=== PATIENT | female | born 1945 | race Caucasian/White ===

== ENCOUNTER → 2017-10-19 13:46 | Outpatient (CLI) | payer MEDICARE, OTHER, SELFPAY ==
[2017-10-19 13:55] LABS: Bacteria 0 SEEN /hpf (None Seen); Mucous, Urine 0 SEEN /hpf (<or=2+); Red Blood Cells-Urine 0 SEEN /hpf (0-5); Squamous Epithelial Cells - UA 0 SEEN /hpf (5-10); White Blood Cells 0 SEEN /hpf (0-5)
[2017-10-19 14:02] LABS: Color, Urine Yellow (Yellow); Glucose, Dipstick Normal (Normal); Ketone-Dipstick Negative (Negative); Leukocyte Esterase-Dipstick Negative /ul (Negative); Nitrite-Dipstick Negative (Negative); Occult Blood-Urine Negative /ul (Negative); Protein-Dipstick Negative (Negative); Urine Bilirubin Dipstick Negative (Negative); Urine Clarity Clear (Clear); Urine Urobilinogen Normal (Normal)
== END ==
PROVIDERS: Family Provider Nurse Practitioner; PCP Nurse Practitioner; Visit Provider Physician Assistant Surgical
DX: R30.0 Dysuria (principal)
CPT/HCPCS: 81001; 87086; 87088

== ENCOUNTER → 2017-10-28 09:47 | Outpatient (CLI) | payer MEDICARE, OTHER, SELFPAY ==
[2017-10-28 10:56] LABS: Absolute Lymphocyte Count 0.95 X10^3/ul (0.83-4.51); Absolute Neutrophil Count 5.2 X10^3/uL (2.0-7.7); Basophil# 0.03 X10^3/uL; Basophil% 0.5 % (0-1); Eosinophil# 0.07 X10^3/uL; Eosinophils% 1.1 % (0-5); Hematocrit 27.9 % (37-47); Hemoglobin 8.2 g/dl (12.0-15.0); Lymphocyte # 0.95 X10^3/ul (4.0); Lymphocyte % 14.6 % (19-41); Mean Corp Hgb Conc 29.4 g/gl (32-36); Mean Corpuscular Hgb 28.9 pg (27.0-32.0); Mean Corpuscular Volume 98.2 fL (81-99); Mean Platelet Vol. 11.5 fl (6.2-12.0); Monocyte# 0.25 X10^3/uL; Monocyte% 3.8 % (0-10); Neutrophil # 5.19 X10^3/uL (2.7-7.7); Neutrophil % 79.8 % (47-70); Platelet Count 250 K/mm3 (150-450); RBC Distribution Width CV 19.1 % (11.6-14.6); RBC Distribution Width SD 66.8 fl (35.1-43.9); Red Blood Count 2.84 M/mm3 (4.2-5.4); White Blood Count 6.5 K/mm3 (4.4-11.0)
[2017-10-28 10:58] LABS: Differential Indicated SCAN CRITERIA MET; POSITIVE COUNT NO; POSITIVE DIFFERENTIAL NO; POSITIVE MORPHOLOGY YES
[2017-10-28 11:03] LABS: AST(SGOT) 19 U/L (15-37); Alanine Aminotransfer ALT/SGPT 17 U/L (13-56); Albumin, Serum 3.6 g/dL (3.2-5.0); Alkaline Phosphatase 76 U/L (45-117); Anion Gap 8 (5-15); BUN 33 mg/dL (7-18); BUN/Creat Ratio 23.1 RATIO (10-20); Calcium,Total 8.8 mg/dL (8.5-10.1); Chloride 107 mmol/L (98-107); Cholesterol 101 mg/dL (200); Creatinine, Serum 1.43 mg/dL (0.55-1.02); EST Glomerular Filtration Rate 38 mL/min (>60); Est Glom Filt Rate - Afr Amer 46 mL/min (>60); Ferritin 32 ng/mL (8-252); Globulin 3.5 g/dL (2.2-4.2); Glucose 111 mg/dL (74-106); High Density Lipoprotein 29 mg/dL; Iron 95 ug/dL (50-170); Iron Binding Capacity,Total 449 ug/dL (250-450); PERCENT IRON SATURATION 21.2 % (15.0-55.0); Potassium 4.3 mmol/L (3.5-5.1); Protein, Total 7.1 g/dL (6.4-8.2); Sodium Level 139 mmol/L (136-145); Triglycerides 120 mg/dL; Very Low Density Lipoprotein 24 mg/dL (5-40)
[2017-10-28 11:19] LABS: Anisocytosis 1+; Hypochromasia 2+; Platelet Estimate ADEQUATE (ADEQ); Polychromasia RARE
== END ==
PROVIDERS: Internal Medicine Hematology & Oncology; Family Provider Nurse Practitioner; PCP Nurse Practitioner; Visit Provider Internal Medicine Nephrology
DX: N17.9 Acute kidney failure, unspecified (principal); D50.9 Iron deficiency anemia, unspecified; E11.9 Type 2 diabetes mellitus without complications
CPT/HCPCS: 36415; 80053; 80061; 82728; 83540; 83550; 85025

== ENCOUNTER 2017-11-18 14:05 | Emergency (ER) | payer MEDICARE, OTHER, SELFPAY ==
[2017-11-18 14:05] VITALS: BP 151/88; PULSE 98; RESP 25; TEMP 36.4; O2SAT 96; BMI 58.9
[2017-11-18 14:24] VITALS: O2SAT 94
--- NOTE | 2017-11-18 14:25 | EKG12_ITS ---
Test Reason : SOB Blood Pressure : / mmHG Vent. Rate : 085 BPM Atrial Rate : 058 BPM P-R Int : 000 ms QRS Dur : 088 ms QT Int : 372 ms P-R-T Axes : 000 050 185 degrees QTc Int : 442 ms Atrial fibrillation Nonspecific ST and T wave abnormality Abnormal ECG Confirmed by HARPAL BALDWIN, AMY ([id number]), legal editor JONATHON ROLLE ([id number]) on 11/22/2017 12:57:07 PM Referred By: JOO Confirmed By:AMY ROWAN MD
--- NOTE | 2017-11-18 14:45 | RAD_ITS ---
STUDY: X-RAY CHEST REASON FOR EXAM: Female, 72 years old. SOB, recent start of pulmonary hypertension meds, pt. states she doesn't feel like they are working properly TECHNIQUE: Frontal and lateral views of the chest. COMPARISON: None. FINDINGS: Ill-defined groundglass opacities are seen in the perihilar regions and lung bases suggesting pulmonary edema. There is no demonstrated pleural abnormality. There is moderate cardiac enlargement. Normal mediastinum and veronika. There is prominence of the pulmonary hilar arteries and peripheral pulmonary arteries, consistent with congestive heart failure (CHF). Normal visualized aortic arch and descending thoracic aorta. Normal visualized thoracic spine. Normal visualized ribs, clavicles, and shoulders. There is no demonstrated abnormality of the visualized soft tissue structures of the upper abdomen. RAD/Chest PA and Lateral IMPRESSION: Congestive heart failure. Electronically Signed: Aaron Kenyon MD at 15:32 EDT Tel , Service support ,
[2017-11-18 15:10] LABS: International Normalized Ratio 2.8; Prothrombin Time (Protime)PT. 29.7 SECONDS (11.7-14.9)
[2017-11-18 15:17] LABS: Anion Gap 7 (5-15); BUN 30 mg/dL (7-18); BUN/Creat Ratio 20.3 RATIO (10-20); Calcium,Total 8.8 mg/dL (8.5-10.1); Chloride 110 mmol/L (98-107); Creatinine, Serum 1.48 mg/dL (0.55-1.02); EST Glomerular Filtration Rate 37 mL/min (>60); Est Glom Filt Rate - Afr Amer 44 mL/min (>60); Estimated Creatinine Clearance 32.43 ml/min; Glucose 159 mg/dL (74-106); Potassium 4.1 mmol/L (3.5-5.1); Sodium Level 141 mmol/L (136-145)
[2017-11-18 15:50] LABS: Absolute Lymphocyte Count 0.72 X10^3/ul (0.83-4.51); Absolute Neutrophil Count 4.8 X10^3/uL (2.0-7.7); Basophil# 0.03 X10^3/uL; Basophil% 0.5 % (0-1); Eosinophil# 0.07 X10^3/uL; Eosinophils% 1.2 % (0-5); Hematocrit 29.3 % (37-47); Hemoglobin 8.3 g/dl (12.0-15.0); Lymphocyte # 0.72 X10^3/ul (4.0); Mean Corp Hgb Conc 28.3 g/gl (32-36); Mean Corpuscular Hgb 30.1 pg (27.0-32.0); Mean Corpuscular Volume 106.2 fL (81-99); Mean Platelet Vol. 10.8 fl (6.2-12.0); Monocyte# 0.33 X10^3/uL; Monocyte% 5.5 % (0-10); Neutrophil # 4.82 X10^3/uL (2.7-7.7); Neutrophil % 80.6 % (47-70); Platelet Count 249 K/mm3 (150-450); RBC Distribution Width CV 19.1 % (11.6-14.6); RBC Distribution Width SD 71.6 fl (35.1-43.9); Red Blood Count 2.76 M/mm3 (4.2-5.4)
[2017-11-18 15:52] LABS: Differential Indicated SCAN CRITERIA MET; POSITIVE COUNT NO; POSITIVE DIFFERENTIAL NO; POSITIVE MORPHOLOGY YES
[2017-11-18 16:02] LABS: Differential Comment SCANNED
[2017-11-18 16:29] VITALS: BP 163/69; PULSE 75; RESP 27; O2SAT 99
[2017-11-18 16:54] LABS: BNP,B-Type NATRIURETIC PEPTIDE 226.6 pg/mL (0-100)
--- NOTE | 2017-11-18 17:35 | ED.VISSUMM ---
- ER Visit Summary Date of Service: 11/18/17 Chief Complaint: Shortness of breath History of Present Illness: The patient is a 72 F with a history of shortness of breath secondary to pulmonary hypertension. Patient also has chronic anemia secondary to mild chronic GI bleed. She recently received iron infusions in hopes of increasing her hemoglobin. Patient was started on Revatio 3 weeks ago to help treat the pulmonary hypertension. She has noticed increasing shortness of breath since starting the Revatio. She called Dr. Nelson's office today and was told to continue taking the medication as it may take 6 weeks to see benefit. She called her drainman today to see if she needed to have her blood counts redrawn and she was encouraged to follow-up in the emergency room secondary to her increasing shortness of breath. Patient does not have orthopnea. She reports shortness of breath with any movement or exertion. Physical Examination: Vital signs are unremarkable. Patient sitting upright in bed, alert and conversant. Head neck examination is unremarkable. Heart is irregular with a 3/6 murmur. Lung sounds are grossly clear on auscultation. Abdomen is soft, obese, nontender. Lower extremity examination does reveal 3+ pitting edema at the ankles. Test Results: Two-view chest x-ray is consistent with CHF. EKG is A. fib at 85 with no sign of acute ischemia. CBC was normal white count with hemoglobin of 8.3. This is consistent with her most recent hemoglobin level. Chemistry studies reveal BUN of 30 and a creatinine 1.48. This again is consistent with her baseline. INR is therapeutic at 2.8. Troponin is less than 0.02. BNP is 226. Emergency Department Course and Treatment: On repeat examination patient is resting comfortably. She does not tell me that her Lasix was recently decreased in dose. She does not have a known history of problems with CHF. I spoke with her insurance follow up rep, Dr. Raymundo. Patient will get a dose of IV Lasix now and will increase her Lasix at home back to her prior dosing. Treatment Plan: [] Disposition: Discharge Impression: Dyspnea This note was generated with [employer] dictation software. It may contain incorrect words, spelling, and punctuation that were not noted in review of the chart prior to signing ED Disposition - Plan for ED Patient: Chief Complaint: Shortness of Breath Referrals: Jyothi Weber [Primary Care Provider] -
[2017-11-18] MEDS: Furosemide 40 MG/4 ML Vial IV (17:40)
--- NOTE | 2017-11-18 17:40 | ED.DCSUM_ITS ---
- ER Visit Summary Date of Service: 11/18/17 Chief Complaint: Shortness of breath History of Present Illness: The patient is a 72 F with a history of shortness of breath secondary to pulmonary hypertension. Patient also has chronic anemia secondary to mild chronic GI bleed. She recently received iron infusions in hopes of increasing her hemoglobin. Patient was started on Revatio 3 weeks ago to help treat the pulmonary hypertension. She has noticed increasing shortness of breath since starting the Revatio. She called Dr. Nelson's office today and was told to continue taking the medication as it may take 6 weeks to see benefit. She called her cook 3 pastry today to see if she needed to have her blood counts redrawn and she was encouraged to follow-up in the emergency room secondary to her increasing shortness of breath. Patient does not have orthopnea. She reports shortness of breath with any movement or exertion. Physical Examination: Vital signs are unremarkable. Patient sitting upright in bed, alert and conversant. Head neck examination is unremarkable. Heart is irregular with a 3/6 murmur. Lung sounds are grossly clear on auscultation. Abdomen is soft, obese, nontender. Lower extremity examination does reveal 3+ pitting edema at the ankles. Test Results: Two-view chest x-ray is consistent with CHF. EKG is A. fib at 85 with no sign of acute ischemia. CBC was normal white count with hemoglobin of 8.3. This is consistent with her most recent hemoglobin level. Chemistry studies reveal BUN of 30 and a creatinine 1.48. This again is consistent with her baseline. INR is therapeutic at 2.8. Troponin is less than 0.02. BNP is 226. Emergency Department Course and Treatment: On repeat examination patient is resting comfortably. She does not tell me that her Lasix was recently decreased in dose. She does not have a known history of problems with CHF. I spoke with her laborer yard, Dr. Raymundo. Patient will get a dose of IV Lasix now and will increase her Lasix at home back to her prior dosing. Treatment Plan: [] Disposition: Discharge Impression: Dyspnea This note was generated with [employer] dictation software. It may contain incorrect words, spelling, and punctuation that were not noted in review of the chart prior to signing ED Disposition - Plan for ED Patient: Chief Complaint: Shortness of Breath Referrals: Jyothi Weber [Primary Care Provider] -
--- NOTE | 2017-11-18 17:40 | ED.DEP ---
ED Disposition - Plan for ED Patient: Disposition: Home or Assisted Living Chief Complaint: Shortness of Breath Instructions: ED Dyspnea Shortness of Breath, ED CHF General Referrals: Jyothi Weber [Primary Care Provider] - Niraj Raymundo MD [STAFF PHYSICIAN] - Carlos Nelson MD [STAFF PHYSICIAN] -
[2017-11-18 17:53] VITALS: BP 184/84; PULSE 82; RESP 18; O2SAT 97
== END 2017-11-18 17:54 | disposition home or self-care (01) ==
PROVIDERS: Emergency Provider Emergency Medicine; Family Provider Nurse Practitioner; PCP Nurse Practitioner
DX: I27.20 Pulmonary hypertension, unspecified (principal); D50.0 Iron deficiency anemia secondary to blood loss (chronic); E66.9 Obesity, unspecified; Z68.43 Body mass index [BMI] 50.0-59.9, adult; I48.91 Unspecified atrial fibrillation; I35.0 Nonrheumatic aortic (valve) stenosis; I25.2 Old myocardial infarction; I12.9 Hypertensive chronic kidney disease with stage 1 through stage 4 chronic kidney disease, or unspecified chronic kidney disease; E11.22 Type 2 diabetes mellitus with diabetic chronic kidney disease; N18.9 Chronic kidney disease, unspecified; Z79.84 Long term (current) use of oral hypoglycemic drugs; E78.00 Pure hypercholesterolemia, unspecified; Z79.01 Long term (current) use of anticoagulants; Z79.899 Other long term (current) drug therapy
CPT/HCPCS: 71046; 80048; 83880; 84484; 85025; 85610; 93005; 96374; 99284; A4216; J1940

== ENCOUNTER 2017-11-29 18:20 | Inpatient (IN) | payer MEDICARE, OTHER, SELFPAY ==
[2017-11-29 18:21] VITALS: BP 138/99; PULSE 91; RESP 18; TEMP 36.7; O2SAT 98; BMI 57.2
--- NOTE | 2017-11-29 20:33 | EKG12_ITS ---
Test Reason : GI BLEED Blood Pressure : / mmHG Vent. Rate : 095 BPM Atrial Rate : 070 BPM P-R Int : 000 ms QRS Dur : 088 ms QT Int : 352 ms P-R-T Axes : 000 053 216 degrees QTc Int : [address] & T wave abnormality, consider lateral ischemia Abnormal ECG Confirmed by HARPAL BALDWIN, AMY ([id number]), features editor JONATHON ROLLE ([id number]) on 12/03/2017 1:59:50 PM Referred By: Confirmed By:AMY ROWAN MD
--- NOTE | 2017-11-29 20:35 | RAD_ITS ---
STUDY: X-RAY CHEST REASON FOR EXAM: Female, 72 years old. Coughing weakness and low hemoglobin. TECHNIQUE: Single AP portable view of the chest. Apical lordotic. COMPARISON: Prior chest radiograph of November 18, 2017. Prior PA and lateral chest of August 06, 2017 FINDINGS: The right lung is expanded and without consolidation or atelectasis from baseline radiograph of August 06, 2017. There appears to be a new airspace opacity at the left lung base at the costophrenic angle. Otherwise stable findings of the left lung. Continued cardiomegaly. Normal mediastinum and veronika. Normal visualized pulmonary arteries. There is atherosclerotic calcification of the aortic arch with tortuosity. Normal visualized thoracic spine. Normal visualized ribs, clavicles, and shoulders. There is no demonstrated abnormality of the visualized soft tissue structures of the upper abdomen. RAD/Chest 1 View (Portable) IMPRESSION: Right lung remains expanded and baseline in appearance without new consolidation or focal atelectasis. New opacity at the left lung base/costophrenic angle. Possible new area of consolidation or atelectasis. This may be in part secondary to a exaggerated epicardiac fat pad as this film is apical lordotic compared to prior standard PA radiographs. Continued mild cardiomegaly. Negative for pulmonary venous congestion. Electronically Signed: Norah Arreaga MD at 21:39 EDT , Service support ,
[2017-11-29 21:01] VITALS: PULSE 105; PULSE 119; RESP 18; RESP 23; O2SAT 92; O2SAT 94
[2017-11-29 21:04] VITALS: PULSE 107
[2017-11-29 21:26] LABS: Absolute Lymphocyte Count 1.22 X10^3/ul (0.83-4.51); Absolute Neutrophil Count 6.1 X10^3/uL (2.0-7.7); Basophil# 0.03 X10^3/uL; Basophil% 0.4 % (0-1); Eosinophil# 0.05 X10^3/uL; Eosinophils% 0.6 % (0-5); Hematocrit 25.1 % (37-47); Hemoglobin 7.1 g/dl (12.0-15.0); Lymphocyte # 1.22 X10^3/ul (4.0); Lymphocyte % 15.5 % (19-41); Mean Corp Hgb Conc 28.3 g/gl (32-36); Mean Corpuscular Hgb 29.8 pg (27.0-32.0); Mean Corpuscular Volume 105.5 fL (81-99); Mean Platelet Vol. 10.3 fl (6.2-12.0); Monocyte# 0.48 X10^3/uL; Monocyte% 6.1 % (0-10); Neutrophil # 6.07 X10^3/uL (2.7-7.7); Neutrophil % 77.3 % (47-70); Platelet Count 329 K/mm3 (150-450); RBC Distribution Width CV 18.7 % (11.6-14.6); RBC Distribution Width SD 66.4 fl (35.1-43.9); Red Blood Count 2.38 M/mm3 (4.2-5.4); White Blood Count 7.9 K/mm3 (4.4-11.0)
[2017-11-29 21:28] LABS: POSITIVE COUNT NO; POSITIVE DIFFERENTIAL NO; POSITIVE MORPHOLOGY YES
[2017-11-29 21:29] LABS: Differential Indicated SCAN CRITERIA MET
[2017-11-29 21:40] LABS: Anion Gap 9 (5-15); BUN 37 mg/dL (7-18); BUN/Creat Ratio 20.6 RATIO (10-20); Calcium,Total 8.8 mg/dL (8.5-10.1); Chloride 107 mmol/L (98-107); EST Glomerular Filtration Rate 29 mL/min (>60); Est Glom Filt Rate - Afr Amer 35 mL/min (>60); Estimated Creatinine Clearance 26.66 ml/min; Glucose 127 mg/dL (74-106); Potassium 4.5 mmol/L (3.5-5.1); Sodium Level 139 mmol/L (136-145)
[2017-11-29 22:03] LABS: Anisocytosis 2+; Differential Comment SCANNED; Macrocytosis 1+; Platelet Estimate ADEQUATE (ADEQ); Platelet Morphology GIANT; Polychromasia 1+
[2017-11-29 22:13] LABS: International Normalized Ratio 2.4; Prothrombin Time (Protime)PT. 26.4 SECONDS (11.7-14.9)
[2017-11-29 22:26] LABS: BNP,B-Type NATRIURETIC PEPTIDE 217.5 pg/mL (0-100)
[2017-11-29 23:24] VITALS: BP 91/78; PULSE 95; RESP 23; O2SAT 96
--- NOTE | 2017-11-29 23:32 | PCM.HP.STD ---
Problem List (1) CKD (chronic kidney disease), stage III Status: Chronic (2) Acute kidney injury Status: Acute (3) Chronic atrial fibrillation Status: Chronic (4) GI bleed Status: Acute Qualifiers: GI bleed type/associated pathology: unspecified gastrointestinal hemorrhage type Qualified Code(s): K92.2 - Gastrointestinal hemorrhage, unspecified (5) HLD (hyperlipidemia) Status: Chronic Qualifiers: Hyperlipidemia type: unspecified Qualified Code(s): E78.5 - Hyperlipidemia, unspecified (6) HTN (hypertension) Status: Chronic Qualifiers: Hypertension type: essential hypertension Qualified Code(s): I10 - Essential (primary) hypertension (7) Nonrheumatic aortic (valve) stenosis Status: Chronic (8) CAD (coronary artery disease) Status: Chronic Qualifiers: Coronary Disease-Associated Artery/Lesion type: unspecified vessel or lesion type [place] vs. transplanted heart: unspecified whether [place] or transplanted heart Associated angina: angina presence unspecified Qualified Code(s): I25.10 - Atherosclerotic heart disease of [place] coro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 pectoris (9) Iron deficiency anemia Status: Chronic Qualifiers: Iron deficiency anemia type: unspecified iron deficiency Qualified Code(s): D50.9 - Iron deficiency anemia, unspecified (10) Morbid obesity Status: Chronic History of Present Illness Date of Admission: 11/29/17 Chief Complaint: Weakness, Lightheadedness The patient is a 72 y/o F w/ PMHx: Fe deficiency anemia following w/ Dr. Kahn w/ intermittent Venofer/PRBC administrations, CKD stage III following w/ Dr. Mccurdy, Diabetes mellitus type II, HTN, HLD, AARTI on CPAP, Morbid Obesity, Chronic BL LE Lymphedema and Chronic venous skin changes, Chronic atrial fibrillation on coumadin therapy, History NSTEMI following w/ Dr. Raymundo, Hx Pulmonary HTN, Hx GI bleed prior who presents to the [facility] ED on 11/29/17 with history of ongoing lightheadedness, weakness x 24 hours with reported low Hgb with reported c-scope ~ 1 year prior 12/[address] Hobbs. She notes dark stools chronically secondary to Fe supplementation. In the ED work-up included T 98, HR 119-->95, 138/99-->91/78, RR 18, 98% RA, CBC w/ WBC 7.9, Hgb 7.1 (most recent 11/18/17 Hgb 8.3-->11/26/17 Hgb 7), Plts 329 without shift, INR 2.4, BMP w/ BUN/Cr 37/1.80, glucose 127, trop < 0.02, BNP 217.5. In the ED PRBC x 1 unit ordered, pending. Past Medical History Past Medical History (Chronic Problems): Chronic Problems (Last Reviewed 11/04/17 @ 12:55 by Shirley Mcpherson) CKD (chronic kidney disease), stage III (Chronic) Atherosclerotic heart disease of [place] coro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 pectoris (Chronic) LHC: 07/30/2006; 04/10/17 Chronic atrial fibrillation (Chronic) Hyperkalemia (Chronic) HLD (hyperlipidemia) (Chronic) HTN (hypertension) (Chronic) Non-ST elevation (NSTEMI) myocardial infarction (Chronic) Nonrheumatic aortic (valve) stenosis (Chronic) Nonrheumatic mitral (valve) insufficiency (Chronic) Nonrheumatic tricuspid (valve) insufficiency (Chronic) Other secondary pulmonary hypertension (Chronic) SOB (shortness of breath) (Chronic) NSTEMI (non-ST elevated myocardial infarction) (Chronic) Chronic atrial fibrillation (Chronic) Hypertension (Chronic) Hyperlipidemia (Chronic) Type 2 diabetes mellitus (Chronic) CAD (coronary artery disease) (Chronic) Anemia (Chronic) CRF (chronic renal failure) (Chronic) Iron deficiency anemia (Chronic) Diverticular disease (Chronic) Morbid obesity (Chronic) Allergies No Known Allergies Allergy (Verified 11/18/17 14:05) Home Medications: Ambulatory Orders Medication Instructions Recorded Amoxicillin 2,000 mg PO X1 PRN 11/18/17 Ascorbic Acid [Vitamin C] 1,000 mg PO BID 11/18/17 Budesonide/Formoterol Fumarate 2 puff IH BID 11/18/17 [Symbicort 160-4.5 Mcg Inhaler] Calcium Citrate 500 mg PO TID 11/18/17 Cholecalciferol (Vitamin D3) 4,000 unit PO DAILY 11/18/17 [Vitamin D3] Febuxostat [Uloric] 80 mg PO DAILY 11/18/17 Furosemide [Lasix] 20 mg PO DAILY 11/18/17 Linagliptin [Tradjenta] 5 mg PO DAILY PRN 11/18/17 Lisinopril [Zestril] 10 mg PO DAILY 11/18/17 Magnesium Oxide [Magnesium] 250 mg PO DAILY 11/18/17 Metoprolol Tartrate [Lopressor 100 mg PO BID 11/18/17 (Beta Matthieu)] Multivitamin [Daily Multiple 1 each PO DAILY 11/18/17 Vitamin] Pravastatin Sodium 80 mg PO QHS 11/18/17 Ropinirole HCl [Requip] 0.25 mg PO DAILY 11/18/17 Sildenafil Citrate [Revatio] 20 mg PO TID 11/18/17 Ubidecarenone [Coenzyme Q-10] 100 mg PO DAILY 11/18/17 Warfarin [Coumadin ([facility])] 5 mg PO DAILY 11/18/17 hydrALAZINE [Apresoline] 25 mg PO TID 11/18/17 Ferrous Sulfate 325 mg PO BID 11/29/17 Surgical History: appendectomy, hysterectomy, - - R foot surgery. 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 Paternal History Items: - - Father with a history of coronary artery disease, diabetes, heart disease, hypertension. Review of Systems Constitutional: Reports: Malaise, Weakness, Fatigue. Denies: Chills, Fever, Weight Change HEENT: Denies: Head Aches, Sinus Congestion, Sinus Drainage Cardiovascular: Reports: Edema, Light Headedness. Denies: Chest Pain, Palpitations Respiratory: Reports: Shortness of breath upon exertion. Denies: Cough, Shortness of breath at rest, Sputum production Gastrointestinal: Denies: Abdominal Pain, Nausea, Vomiting Genitourinary: Denies: Dysuria Musculoskeletal: Denies: Joint Pain, Joint Tenderness Skin: Reports: Skin Changes. Denies: Rash, Wounds Neurological: Denies: Numbness, Tingling, Focal weakness Psychiatric: Denies: Anxiety, Depression, Homicidal Ideations, Suicidal Ideations Hematologic/ Lymphatic: Reports: Anemia. Denies: Easy Bruising, Easy Bleeding VTE Information - Inpt Only VTE Present on Admission: No VTE Mechan Device Prophylaxis: SCD's VTE Pharm Prophylaxis ordered?: No Reason prophylaxis not ordered:: Medical Contraindication Patient Problems: Active and Suspected Problems (Last Reviewed 11/04/17 @ 12:55 by Shirley Mcpherson) Acute kidney injury (Acute) Subjective: Seated upright in the ED bed, NAD. Objective: Physical Examination: General: awake, alert, oriented x 3 and cooperative, seated upright in the ED bed in no apparent distress. Skin: normal color, turgor, no icterus, cyanosis except BL LE chronic venous stasis dermatitis skin changes. HEENT: AT/NC, EOMI, PERRLA, mildly dry MM, no carotid bruits or JVD noted; however, thickened neck makes examination difficult. Lungs: Diminished BS, > bases, mild effort, morbidly obese habitus, no wheezing, rhonchi or rales noted. Heart: Irregular, mildly tachycardic; no gallop, rub audible, SM. Abdomen: soft, morbidly obese, NTTP, ND, normal BS, no HSM; however, habitus makes examination difficult. Extremities: no cyanosis, clubbing, BL LE chronic venous stasis, 2+ ankle to distal [place] edema, chronic lymphedema. Neurological: patient awake, alert, oriented x 3; cognitive function intact; pupils equally reactive to light and accomodation; cranial nerves II-XII grossly normal, moving all 4 extremities, no focal deficits, strength severely globally decreased secondary to acute presentation and co-morbidities including habitus. Psychiatric: affect appears normal, no acute evidence of depressive or anxiety feelings. - Physical Exam Vital Signs Temp Pulse Resp BP Pulse Ox 98.0 F 95 23 H 91/78 96 11/29/17 18:21 11/29/17 23:24 11/29/17 23:24 11/29/17 23:24 11/29/17 23:24 Oxygen Delivery Method Room Air Weight: 365 lb Body Mass Index (BMI) 57.2 Microbiology Past 72 Hours 11/29/17 20:34 Stool Occult Blood (LASHAUN) - Final Stool Occult Blood Positive Laboratory Tests Past 24 Hrs 11/29/17 11/29/17 11/29/17 20:55 20:55 20:55 WBC 7.9 RBC 2.38 L Hgb 7.1 L Hct 25.1 L MCV 105.5 H MCH 29.8 MCHC 28.3 L RDW 18.7 H RDW Differential 66.4 H Plt Count 329 MPV 10.3 Immature Gran % (Auto) 0.100 Neut % (Auto) 77.3 H Lymph % (Auto) 15.5 L [place] % (Auto) 6.1 Eos % (Auto) 0.6 Baso % (Auto) 0.4 Absolute Neuts (auto) 6.1 Absolute Lymphs (auto) 1.22 Total Counted Not Reportable Differential Comment SCANNED Platelet Estimate ADEQUATE Plt Morphology Comment GIANT Polychromasia 1+ Anisocytosis 2+ Macrocytosis 1+ PT 26.4 H INR 2.4 Sodium 139 Potassium 4.5 Chloride 107 Carbon Dioxide 23.0 Anion Gap 9 BUN 37 H Creatinine 1.80 H Estim Creat Clear Calc 26.66 Est GFR (MDRD) Af Amer 35 L Est GFR (MDRD) Non-Af 29 L BUN/Creatinine Ratio 20.6 H Glucose 127 H Calcium 8.8 Troponin I < 0.02 B-Natriuretic Peptide Blood Type Antibody Screen 11/29/17 11/29/17 20:55 20:55 WBC RBC Hgb Hct MCV MCH MCHC RDW RDW Differential Plt Count MPV Immature Gran % (Auto) Neut % (Auto) Lymph % (Auto) [place] % (Auto) Eos % (Auto) Baso % (Auto) Absolute Neuts (auto) Absolute Lymphs (auto) Total Counted Differential Comment Platelet Estimate Plt Morphology Comment Polychromasia Anisocytosis Macrocytosis PT INR Sodium Potassium Chloride Carbon Dioxide Anion Gap BUN Creatinine Estim Creat Clear Calc Est GFR (MDRD) Af Amer Est GFR (MDRD) Non-Af BUN/Creatinine Ratio Glucose Calcium Troponin I B-Natriuretic Peptide 217.5 H Blood Type A POSITIVE Antibody Screen NEGATIVE Assessment/Plan Active and Suspected Problems (Last Reviewed 11/04/17 @ 12:55 by Shirley Mcpherson) Acute kidney injury (Acute) The patient is a 72 y/o F w/ PMHx: Fe deficiency anemia following w/ Dr. Khan w/ intermittent Venofer/PRBC administrations, CKD stage III following w/ Dr. Mccurdy, Diabetes mellitus type II, HTN, HLD, AARTI on CPAP, Morbid Obesity, Chronic BL LE Lymphedema and Chronic venous skin changes, Chronic atrial fibrillation on coumadin therapy, History NSTEMI following w/ Dr. Raymundo, Hx Pulmonary HTN, Hx GI bleed prior who presents to the [facility] ED on 11/29/17 with history of ongoing lightheadedness, weakness x 24 hours with reported low Hgb. (1) Acute GI Bleed w/ resultant Acute Blood Loss Anemia on Chronic Fe Deficiency Anemia: Admission Hgb 7.1, stool guiac positive, reported recent labs w/ 11/18/17 Hgb 8.3, 11/26/17 Hgb 7.0. Will admit to PCU, maintain on IVFs. Admission INR 2.4, given recent Hgb similar to repeat will administer vitamin K oral regimen only, obtain serial H+H q 6 hours, if decreased further will administer FFP as needed, PRBC 1 u ordered per ED, pending. Will maintain on IV PPI. Dr. [place] consulted per ED, pending. Continue Fe supplementation. Dr. Khan also for Fe management/evaluation. (2) Acute kidney injury: Secondary to acute presentation as noted #1, nephrotoxic regimen. Admission BUN/Cr 37/1.80, prior baseline creatinine noted to be 1.2-1.3. Following w/ Dr. Mccurdy outpatient. Will hydrate, hold nephrotoxic medications and repeat chemistry in AM. If no improvement would plan FeNa and renal US assessment. (3) CAD: Noted most recent cardiac catheterization 2005 w/ normal left main coronary artery, and left anterior descending artery with isolated plaque of 30-40%, circumflex artery with isolated plaque disease, obtuse marginal with 30-40% disease in the right coronary artery with isolated plaque disease. Holding coumadin, continue statin, holding ACEI, BB secondary to hypotension. (4) Chronic Atrial Fibrillation: EKG tachycardic, atrial fibrillation, improved w/ IVFs, holding metoprolol given hypotension, add back once appropriate, holding coumadin, repeat INR. (5) Hypertension: BP low in the ED, will hold regimen pending improvement, PRN hydralazine. (6) Hyperlipidemia: Continue home statin regimen. (7) Morbid Obesity: Weight loss and lifestyle changes encouraged, nutrition consulted. (8) Diabetes mellitus type II: Hold oral home regimen, NPO status, accu checks w/ ISS. (9) Valvular Heart Disease: History of aortic stenosis, most recent ECHO w/ mild to moderate aortic stenosis w/ mean gradient 30 mmHgb. (10) Pulmonary HTN: Continue home sildenafil regimen. (11) AARTI: Maintain on home CPAP. (12) Abnormal CXR: Suspect poor film especially given habitus, no recent marked cough, fever, no WBC elevation or marked shift, but to be cautious as noted hydrating gently overnight, repeat PA and Lateral in AM. (13) DVT Prophylaxis: SCDs, holding coumadin given presentation. Code Visit Inpatient E&M: 24482 Init Hosp L3
[2017-11-29 23:44] VITALS: BP 133/80; PULSE 93; RESP 25; O2SAT 94
--- NOTE | 2017-11-29 23:50 | HP.PCM_ITS ---
Problem List (1) CKD (chronic kidney disease), stage III Status: Chronic (2) Acute kidney injury Status: Acute (3) Chronic atrial fibrillation Status: Chronic (4) GI bleed Status: Acute Qualifiers: GI bleed type/associated pathology: unspecified gastrointestinal hemorrhage type Qualified Code(s): K92.2 - Gastrointestinal hemorrhage, unspecified (5) HLD (hyperlipidemia) Status: Chronic Qualifiers: Hyperlipidemia type: unspecified Qualified Code(s): E78.5 - Hyperlipidemia , unspecified (6) HTN (hypertension) Status: Chronic Qualifiers: Hypertension type: essential hypertension Qualified Code(s): I10 - Essential (primary) hypertension (7) Nonrheumatic aortic (valve) stenosis Status: Chronic (8) CAD (coronary artery disease) Status: Chronic Qualifiers: Coronary Disease-Associated Artery/Lesion type: unspecified vessel or lesion type [place] vs. transplanted heart: unspecified whether koi or transplanted heart Associated angina: angina presence unspecified Qualified Code(s): I25.10 - Atherosclerotic heart disease of koi coro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 pectoris (9) Iron deficiency anemia Status: Chronic Qualifiers: Iron deficiency anemia type: unspecified iron deficiency Qualified Code(s) : D50.9 - Iron deficiency anemia, unspecified (10) Morbid obesity Status: Chronic History of Present Illness Date of Admission: 11/29/17 Chief Complaint: Weakness, Lightheadedness The patient is a 72 y/o F w/ PMHx: Fe deficiency anemia following w/ Dr. Khan w/ intermittent Venofer/PRBC administrations, CKD stage III following w / Dr. Mccurdy, Diabetes mellitus type II, HTN, HLD, AARTI on CPAP, Morbid Obesity, Chronic BL LE Lymphedema and Chronic venous skin changes, Chronic atrial fibrillation on coumadin therapy, History NSTEMI following w/ Dr. Raymundo, Hx Pulmonary HTN, Hx GI bleed prior who presents to the [facility] ED on 11/29/17 with history of ongoing lightheadedness, weakness x 24 hours with reported low Hgb with reported c-scope ~ 1 year prior 12/[address] Hobbs. She notes dark stools chronically secondary to Fe supplementation. In the ED work-up included T 98, HR 119-->95, 138/99-->91/78, RR 18, 98% RA, CBC w/ WBC 7.9, Hgb 7.1 (most recent 11/18/17 Hgb 8.3-->11/26/17 Hgb 7), Plts 329 without shift, INR 2.4, BMP w/ BUN/Cr 37/1.80, glucose 127, trop < 0.02, BNP 217.5. In the ED PRBC x 1 unit ordered, pending. Past Medical History Past Medical History (Chronic Problems): Chronic Problems (Last Reviewed 11/04/17 @ 12:55 by Shirley Mcpherson) CKD (chronic kidney disease), stage III (Chronic) Atherosclerotic heart disease of koi coro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 pectoris (Chronic) LHC: 07/30/2006; 04/10/17 Chronic atrial fibrillation (Chronic) Hyperkalemia (Chronic) HLD (hyperlipidemia) (Chronic) HTN (hypertension) (Chronic) Non-ST elevation (NSTEMI) myocardial infarction (Chronic) Nonrheumatic aortic (valve) stenosis (Chronic) Nonrheumatic mitral (valve) insufficiency (Chronic) Nonrheumatic tricuspid (valve) insufficiency (Chronic) Other secondary pulmonary hypertension (Chronic) SOB (shortness of breath) (Chronic) NSTEMI (non-ST elevated myocardial infarction) (Chronic) Chronic atrial fibrillation (Chronic) Hypertension (Chronic) Hyperlipidemia (Chronic) Type 2 diabetes mellitus (Chronic) CAD (coronary artery disease) (Chronic) Anemia (Chronic) CRF (chronic renal failure) (Chronic) Iron deficiency anemia (Chronic) Diverticular disease (Chronic) Morbid obesity (Chronic) Allergies No Known Allergies Allergy (Verified 11/18/17 14:05) Home Medications: Ambulatory Orders Medication Instructions Recorded Amoxicillin 2,000 mg PO X1 PRN 11/18/17 Ascorbic Acid [Vitamin C] 1,000 mg PO BID 11/18/17 Budesonide/Formoterol Fumarate 2 puff IH BID 11/18/17 [Symbicort 160-4.5 Mcg Inhaler] Calcium Citrate 500 mg PO TID 11/18/17 Cholecalciferol (Vitamin D3) 4,000 unit PO DAILY 11/18/17 [Vitamin D3] Febuxostat [Uloric] 80 mg PO DAILY 11/18/17 Furosemide [Lasix] 20 mg PO DAILY 11/18/17 Linagliptin [Tradjenta] 5 mg PO DAILY PRN 11/18/17 Lisinopril [Zestril] 10 mg PO DAILY 11/18/17 Magnesium Oxide [Magnesium] 250 mg PO DAILY 11/18/17 Metoprolol Tartrate [Lopressor 100 mg PO BID 11/18/17 (Beta Matthieu)] Multivitamin [Daily Multiple 1 each PO DAILY 11/18/17 Vitamin] Pravastatin Sodium 80 mg PO QHS 11/18/17 Ropinirole HCl [Requip] 0.25 mg PO DAILY 11/18/17 Sildenafil Citrate [Revatio] 20 mg PO TID 11/18/17 Ubidecarenone [Coenzyme Q-10] 100 mg PO DAILY 11/18/17 Warfarin [Coumadin (PBKC)] 5 mg PO DAILY 11/18/17 hydrALAZINE [Apresoline] 25 mg PO TID 11/18/17 Ferrous Sulfate 325 mg PO BID 11/29/17 Surgical History: appendectomy, hysterectomy, - - R foot surgery. Psychiatric History: No pertinent psych hx PROPERTY MANAGER History: No pertinent PROPERTY MANAGER history Lives: Spouse/ Significant Other Smoking Status: Never smoker Tobacco Use: Non-smoker Alcohol: None Drugs: None - *Family History Maternal History Items: - - Mother with a history of hypertension, uterine cancer. Paternal History Items: - - Father with a history of coronary artery disease, diabetes, heart disease, hypertension. Review of Systems Constitutional: Reports: Malaise, Weakness, Fatigue. Denies: Chills, Fever, Weight Change HEENT: Denies: Head Aches, Sinus Congestion, Sinus Drainage Cardiovascular: Reports: Edema, Light Headedness. Denies: Chest Pain, Palpitations Respiratory: Reports: Shortness of breath upon exertion. Denies: Cough, Shortness of breath at rest, Sputum production Gastrointestinal: Denies: Abdominal Pain, Nausea, Vomiting Genitourinary: Denies: Dysuria Musculoskeletal: Denies: Joint Pain, Joint Tenderness Skin: Reports: Skin Changes. Denies: Rash, Wounds Neurological: Denies: Numbness, Tingling, Focal weakness Psychiatric: Denies: Anxiety, Depression, Homicidal Ideations, Suicidal Ideations Hematologic/ Lymphatic: Reports: Anemia. Denies: Easy Bruising, Easy Bleeding VTE Information - Inpt Only VTE Present on Admission: No VTE Mechan Device Prophylaxis: SCD's VTE Pharm Prophylaxis ordered?: No Reason prophylaxis not ordered:: Medical Contraindication Patient Problems: Active and Suspected Problems (Last Reviewed 11/04/17 @ 12:55 by Shirley Mcpherson) Acute kidney injury (Acute) Subjective: Seated upright in the ED bed, NAD. Objective: Physical Examination: General: awake, alert, oriented x 3 and cooperative, seated upright in the ED bed in no apparent distress. Skin: normal color, turgor, no icterus, cyanosis except BL LE chronic venous stasis dermatitis skin changes. HEENT: AT/NC, EOMI, PERRLA, mildly dry MM, no carotid bruits or JVD noted; however, thickened neck makes examination difficult. Lungs: Diminished BS, > bases, mild effort, morbidly obese habitus, no wheezing , rhonchi or rales noted. Heart: Irregular, mildly tachycardic; no gallop, rub audible, SM. Abdomen: soft, morbidly obese, NTTP, ND, normal BS, no HSM; however, habitus makes examination difficult. Extremities: no cyanosis, clubbing, BL LE chronic venous stasis, 2+ ankle to distal rosado edema, chronic lymphedema. Neurological: patient awake, alert, oriented x 3; cognitive function intact; pupils equally reactive to light and accomodation; cranial nerves II-XII grossly normal, moving all 4 extremities, no focal deficits, strength severely globally decreased secondary to acute presentation and co-morbidities including habitus. Psychiatric: affect appears normal, no acute evidence of depressive or anxiety feelings. - Physical Exam Vital Signs Temp Pulse Resp BP Pulse Ox 98.0 F 95 23 H 91/78 96 11/29/17 18:21 11/29/17 23:24 11/29/17 23:24 11/29/17 23:24 11/29/17 23:24 Oxygen Delivery Method Room Air Weight: 365 lb Body Mass Index (BMI) 57.2 Microbiology Past 72 Hours 11/29/17 20:34 Stool Occult Blood (LASHAUN) - Final Stool Occult Blood Positive Laboratory Tests Past 24 Hrs 11/29/17 11/29/17 11/29/17 20:55 20:55 20:55 WBC 7.9 RBC 2.38 L Hgb 7.1 L Hct 25.1 L MCV 105.5 H MCH 29.8 MCHC 28.3 L RDW 18.7 H RDW Differential 66.4 H Plt Count 329 MPV 10.3 Immature Gran % (Auto) 0.100 Neut % (Auto) 77.3 H Lymph % (Auto) 15.5 L [place] % (Auto) 6.1 Eos % (Auto) 0.6 Baso % (Auto) 0.4 Absolute Neuts (auto) 6.1 Absolute Lymphs (auto) 1.22 Total Counted Not Reportable Differential Comment SCANNED Platelet Estimate ADEQUATE Plt Morphology Comment GIANT Polychromasia 1+ Anisocytosis 2+ Macrocytosis 1+ PT 26.4 H INR 2.4 Sodium 139 Potassium 4.5 Chloride 107 Carbon Dioxide 23.0 Anion Gap 9 BUN 37 H Creatinine 1.80 H Estim Creat Clear Calc 26.66 Est GFR (MDRD) Af Amer 35 L Est GFR (MDRD) Non-Af 29 L BUN/Creatinine Ratio 20.6 H Glucose 127 H Calcium 8.8 Troponin I < 0.02 B-Natriuretic Peptide Blood Type Antibody Screen 11/29/17 11/29/17 20:55 20:55 WBC RBC Hgb Hct MCV MCH MCHC RDW RDW Differential Plt Count MPV Immature Gran % (Auto) Neut % (Auto) Lymph % (Auto) [place] % (Auto) Eos % (Auto) Baso % (Auto) Absolute Neuts (auto) Absolute Lymphs (auto) Total Counted Differential Comment Platelet Estimate Plt Morphology Comment Polychromasia Anisocytosis Macrocytosis PT INR Sodium Potassium Chloride Carbon Dioxide Anion Gap BUN Creatinine Estim Creat Clear Calc Est GFR (MDRD) Af Amer Est GFR (MDRD) Non-Af BUN/Creatinine Ratio Glucose Calcium Troponin I B-Natriuretic Peptide 217.5 H Blood Type A POSITIVE Antibody Screen NEGATIVE Assessment/Plan Active and Suspected Problems (Last Reviewed 11/04/17 @ 12:55 by Shirley Mcpherson) Acute kidney injury (Acute) The patient is a 72 y/o F w/ PMHx: Fe deficiency anemia following w/ Dr. Khan w/ intermittent Venofer/PRBC administrations, CKD stage III following w / Dr. Mccurdy, Diabetes mellitus type II, HTN, HLD, AARTI on CPAP, Morbid Obesity, Chronic BL LE Lymphedema and Chronic venous skin changes, Chronic atrial fibrillation on coumadin therapy, History NSTEMI following w/ Dr. Raymundo, Hx Pulmonary HTN, Hx GI bleed prior who presents to the [facility] ED on 11/29/17 with history of ongoing lightheadedness, weakness x 24 hours with reported low Hgb. (1) Acute GI Bleed w/ resultant Acute Blood Loss Anemia on Chronic Fe Deficiency Anemia: Admission Hgb 7.1, stool guiac positive, reported recent labs w/ 11/18/17 Hgb 8.3, 11/26/17 Hgb 7.0. Will admit to PCU, maintain on IVFs. Admission INR 2.4, given recent Hgb similar to repeat will administer vitamin K oral regimen only, obtain serial H+H q 6 hours, if decreased further will administer FFP as needed, PRBC 1 u ordered per ED, pending. Will maintain on IV PPI. Dr. Birmingham consulted per ED, pending. Continue Fe supplementation. Dr. Khan also for Fe management/evaluation. (2) Acute kidney injury: Secondary to acute presentation as noted #1, nephrotoxic regimen. Admission BUN/Cr 37/1.80, prior baseline creatinine noted to be 1.2-1.3. Following w/ Dr. Mccurdy outpatient. Will hydrate, hold nephrotoxic medications and repeat chemistry in AM. If no improvement would plan FeNa and renal US assessment. (3) CAD: Noted most recent cardiac catheterization 2005 w/ normal left main coronary artery, and left anterior descending artery with isolated plaque of 30- 40%, circumflex artery with isolated plaque disease, obtuse marginal with 30-40 % disease in the right coronary artery with isolated plaque disease. Holding coumadin, continue statin, holding ACEI, BB secondary to hypotension. (4) Chronic Atrial Fibrillation: EKG tachycardic, atrial fibrillation, improved w/ IVFs, holding metoprolol given hypotension, add back once appropriate, holding coumadin, repeat INR. (5) Hypertension: BP low in the ED, will hold regimen pending improvement, PRN hydralazine. (6) Hyperlipidemia: Continue home statin regimen. (7) Morbid Obesity: Weight loss and lifestyle changes encouraged, nutrition consulted. (8) Diabetes mellitus type II: Hold oral home regimen, NPO status, accu checks w / ISS. (9) Valvular Heart Disease: History of aortic stenosis, most recent ECHO w/ mild to moderate aortic stenosis w/ mean gradient 30 mmHgb. (10) Pulmonary HTN: Continue home sildenafil regimen. (11) AARTI: Maintain on home CPAP. (12) Abnormal CXR: Suspect poor film especially given habitus, no recent marked cough, fever, no WBC elevation or marked shift, but to be cautious as noted hydrating gently overnight, repeat PA and Lateral in AM. (13) DVT Prophylaxis: SCDs, holding coumadin given presentation. Code Visit Inpatient E&M: 69066 Init Hosp L3
[2017-11-30] VITALS (41 sets, daily range): BP systolic 105–173; BP diastolic 42–108; PULSE 88–120; RESP 16–30; TEMP 36.4–36.9; O2SAT 90–98; BMI 58.3; BMI 58.4
--- NOTE | 2017-11-30 00:06 | ED.DCSUM_ITS ---
- ER Visit Summary Date of Service: 11/30/17 Chief Complaint: Anemia, GI bleed History of Present Illness: The patient is a 72 F presenting with low hemoglobin. Patient states she had her hemoglobin checked on November 18 and it was 8.3. On recheck on November 26 it was 7.0. Her primary care physician advised her to come to the ED for evaluation. She states she always has dark stools secondary to iron supplements. She has had bright red blood around the stool. She has a history of diverticular disease. She is on Coumadin. She has had lightheadedness and mild shortness of breath. Denies syncope. Denies chest pain. Physical Examination: Vitals are stable. Patient is afebrile. Alert no acute distress. HEENT exam is unremarkable. Neck is supple. Lungs are clear and equal bilaterally. Heart is irregularly irregular Abdomen is soft nontender nondistended. Extremities are unremarkable. Skin is warm and dry. No focal neurologic deficit. Remainder of exam is unremarkable. Emergency Department Course and Treatment: Stool is guaiac positive. Hemoglobin 7.1. Chemistries show glucose 127, BUN 37, creatinine 1.80. INR is 2.4. Troponin is negative. BNP 217.5. EKG is A. fib rate of 95, lateral ST depression with T-wave inversion. Patient continues to deny any chest pain. She was given a unit of packed red blood cells and vitamin K. Discussed with Dr. Birmingham who will see her in consultation. Discussed with the hospitalist for admission. Disposition: Admission Impression: GI bleed, anemia This note was generated with [employer] dictation software. It may contain incorrect words, spelling, and punctuation that were not noted in review of the chart prior to signing ED Disposition - Plan for ED Patient: Chief Complaint: Abn Labs
--- NOTE | 2017-11-30 00:16 | NURSING ---
unable to medicate with vitamin k in the er out of stock, called pharmacy and he wants to send the medication to [facility], and clarified with [facility] charge nurse.
[2017-11-30] MEDS: Phytonadione (Vit K) 10 MG/ML Ampul 5 MG PO (00:54)
[2017-11-30] MEDS: Ipratropium/Albuterol Sulfate 3 ML AMPUL.NEB INHALATION ×4 (01:02→19:16)
[2017-11-30] MEDS: 0.9% Normal Saline 1,000 ML 100 ML IV (03:40)
[2017-11-30] MEDS: 0.9% NaCl Peripheral Flush Adult/Peds IV ×2 (03:40→22:17)
--- NOTE | 2017-11-30 04:44 | NURSING ---
pt off unit to xray
--- NOTE | 2017-11-30 05:55 | RAD_ITS ---
STUDY: X-RAY CHEST REASON FOR EXAM: Female, 72 years old. Shortness of breath. COPD. TECHNIQUE: PA and lateral views of the chest. COMPARISON: Including November 29, 2017 FINDINGS: There are monitoring devices. There is interstitial accentuation of the lungs. There is left lower lung airspace consolidation. Small left pleural effusion. There is moderate cardiac enlargement. Normal mediastinum and veronika. Normal visualized pulmonary arteries. Normal visualized aortic arch and descending thoracic aorta. Normal visualized thoracic spine. Normal visualized ribs, clavicles, and shoulders. There is no demonstrated abnormality of the visualized soft tissue structures of the upper abdomen. RAD/Chest PA and Lateral IMPRESSION: Left lower lung infiltrate or edema and pleural effusion. Cardiac enlargement. Electronically Signed: Amador Guo MD at 8:20 EDT , Service support ,
[2017-11-30 06:46] LABS: Bedside Glucose 118 mg/dL (70-110)
[2017-11-30] MEDS: SILDENAFIL CITRATE 20 MG TABLET PO ×3 (06:49→22:16)
[2017-11-30 07:43] LABS: Hematocrit 25.3 % (37-47); Hemoglobin 7.3 g/dl (12.0-15.0)
[2017-11-30 07:51] LABS: Anion Gap 8 (5-15); BUN 32 mg/dL (7-18); BUN/Creat Ratio 21.3 RATIO (10-20); Calcium,Total 8.6 mg/dL (8.5-10.1); Chloride 111 mmol/L (98-107); EST Glomerular Filtration Rate 36 mL/min (>60); Est Glom Filt Rate - Afr Amer 44 mL/min (>60); Glucose 110 mg/dL (74-106); Potassium 4.6 mmol/L (3.5-5.1); Sodium Level 141 mmol/L (136-145)
[2017-11-30 07:53] LABS: International Normalized Ratio 2.2; Prothrombin Time (Protime)PT. 24.5 SECONDS (11.7-14.9)
--- NOTE | 2017-11-30 08:50 | PCM.PN.HOSP ---
Patient Problems: Active and Suspected Problems (Last Reviewed 11/04/17 @ 12:55 by Shirley Mcpherson) Acute kidney injury (Acute) Subjective: Patient is a a 72year-old lady with past medical history is none for chronic A. fib on systemic anticoagulation with Coumadin who presented with black tarry stools as well as low hemoglobin. Coumadin was held on admission patient did receive vitamin K as well as FFP with consultation placed to general surgery. Patient had similar presentation in April [address] Hobbs findings included extensive diverticular disease to the sigmoid area and some patchy erythema in the right colon. Went into A. fib with RVR was on a regular nursing floor subsequently transferred to the progressive care unit for further management Objective: GENERAL: dyspneic at rest HEENT: Clear conjunctiva, moist oral mucosa NECK; supple, normal thyroid, no distended JVD. CHEST: Diminished to auscultation with bibasilar Rales HEART: Irregular tachycardic ABDOMEN: soft, non-tender, normoactive bowel sounds, RECTAL: deferred EXTREMITIES: Bilateral edema, no clubbing, no cyanosis. VIDEO EFFECTS EDITOR: Awake, no lateralizing signs. SKIN: As Described above Vitals/I&O's: Vital Signs Temp Pulse Resp BP Pulse Ox 98.3 F 119 H 22 H 173/62 H 97 11/30/17 08:00 11/30/17 08:26 11/30/17 08:26 11/30/17 08:00 11/30/17 08:00 Oxygen Flow Rate (L/min) 2 Oxygen Delivery Method Nasal Cannula Weight: 169.2 kg Body Mass Index (BMI) 58.3 Intake and Output for Last 24 Hours 11/28/17 11/29/17 11/30/17 23:59 23:59 23:59 Intake Total 687 / 687 Output Total 600 / 600 Balance 87 / 87 Laboratory Results 11/30/17 06:30: POC Glucose 118 H 11/30/17 07:22: Hgb 7.3 L, Hct 25.3 L 11/30/17 07:22: PT 24.5 H, INR 2.2 11/30/17 07:22: Sodium 141, Potassium 4.6, Chloride 111 H, Carbon Dioxide 22.0, Anion Gap 8, BUN 32 H, Creatinine 1.50 H, Estim Creat Clear Calc 32.00, Est GFR (MDRD) Af Amer 44 L, Est GFR (MDRD) Non-Af 36 L, BUN/Creatinine Ratio 21.3 H, Glucose 110 H, Calcium 8.6 Current Medications Al Hydroxide/Mg Hydroxide (Mylanta Ii) 30 ml PO Q6H PRN PRN PRN Reason: Gastric burning Albuterol Sulfate (Ventolin Aerosols) 2.5 mg INHALATION Q2H PRN PRN PRN Reason: dyspnea, wheezing Albuterol/Ipratropium (Duoneb) 3 ml INHALATION Q6HWA.RT [facility] Last Admin: 11/30/17 07:17 Dose: 3 ml Dextrose (D50w Syringe) 0 gm IV X1 PRN; Protocol PRN Reason: Hypoglycemia Ferrous Sulfate (Ferrous Sulfate) 325 mg PO BIDCM [facility] Glucagon () 1 mg IM .X1 PRN PRN Reason: Hypoglycemia Pantoprazole Sodium 40 mg/ (Sodium Chloride) 110 mls @ 330 mls/hr IV Q12 [facility] Last Admin: 11/30/17 03:39 Dose: 330 mls/hr Sodium Chloride () 1,000 mls @ 100 mls/hr IV .Q10H [facility] Last Admin: 11/30/17 03:40 Dose: 100 mls/hr Sodium Chloride () 250 mls @ 15 mls/hr IV .[id number] PRN PRN Reason: SALINE FLUSH Insulin Aspart (Novolog Flexpen (Bkc)) 0 units SC ACHS PAM PRN Reason: Protocol Last Admin: 11/30/17 06:50 Dose: Not Given Magnesium Hydroxide (Milk Of Magnesia) 30 ml PO DAILY PRN PRN PRN Reason: Constipation Magnesium Oxide (Mag-Ox 400) 200 mg PO DAILY [facility] Ondansetron HCl (Zofran) 4 mg IV Q8H PRN PRN PRN Reason: NAUSEA Pramipexole Dihydrochloride (Mirapex) 0.125 mg PO DAILY [facility] Pravastatin Sodium (Pravachol) 80 mg PO QHS [facility] Promethazine HCl (Phenergan) 12.5 mg IV Q6H PRN PRN PRN Reason: NAUSEA/VOMITING Sildenafil Citrate (Revatio) 20 mg PO TID [facility] Last Admin: 11/30/17 06:49 Dose: 20 mg Sodium Chloride () 5 - 30 ml IV UD PRN PRN Reason: SALINE FLUSH Last Admin: 11/30/17 03:40 Dose: 20 ml Throat Lozenges (Cepacol Sore Throat Lozenge) 2 lozenge MUCOUS MEM Q2H PRN PRN PRN Reason: SORE THROAT Medical Necessity - Tobacco Use Smoking Status: Never smoker Tobacco Use: Non-smoker Assessment/Plan Active and Suspected Problems (Last Reviewed 11/04/17 @ 12:55 by Shirley Mcpherson) Acute kidney injury (Acute) Patient is a a 72year-old lady with past medical history is none for chronic A. fib on systemic anticoagulation with Coumadin who presented with black tarry stools as well as low hemoglobin. Coumadin was held on admission patient did receive vitamin K as well as FFP with consultation placed to general surgery. Patient had similar presentation in April [address] Hobbs findings included extensive diverticular disease to the sigmoid area and some patchy erythema in the right colon. Went into A. fib with RVR was on a regular nursing floor subsequently transferred to the progressive care unit for further management 1. Anemia secondary to acute on chronic blood loss from GI tract. Patient has history of significant diverticular bleed and is also on Coumadin which was held on admission. With patient being symptomatic she did receive 1 unit PRBC blood transfusion on admission. Also did receive vitamin K as well as FFP consultation was placed to Dr. Bobbi Booker with general surgery plan is for patient undergo endoscopic evaluation on 12/01/2017 2. Paroxysmal A. fib presented with rapid ventricular response patient was started on Cardizem drip transferred from the [facility] floor to PCU. On systemic anticoagulation at home however in view of her presentation this is being held 3. Acute on chronic diastolic congestive heart failure possibly precipitated by #1 Lasix in addition to fluid restriction 4. Diabetes mellitus type II: Controlled; patient's oral hypoglycemics held. Placed on Accu-Cheks a.c. and at bedtime and covered with sliding scale insulin 5. Dyslipidemia-patient is on statin therapy, continued at home dose 6. Hypertension-blood pressure controlled, home medications continued with dose adjustment as needed 7. Morbid obesity with BMI of 58.4 8. History of non-ST NC 9. DVT prophylaxis: SCDs, and now patient was not placed on chemoprophylaxis in view of her active GI bleed Code Visit Inpatient E&M: [id number] [facility] Hosp L3
--- NOTE | 2017-11-30 08:52 | EKG12_ITS ---
Test Reason : Blood Pressure : / mmHG Vent. Rate : 120 BPM Atrial Rate : 131 BPM P-R Int : 000 ms QRS Dur : 080 ms QT Int : 290 ms P-R-T Axes : 000 075 256 degrees QTc Int : [address] & T wave abnormality, consider inferolateral ischemia or digitalis effect Abnormal ECG Confirmed by YVONNE BALDWIN, ALEXIA ([id number]), supervising editor trailer JONATHON ROLLE ([id number]) on 12/12/2017 1:58:01 PM Referred By: GUILLE Confirmed By:ALEXIA RUSSELL MD
--- NOTE | 2017-11-30 10:06 | CON.PCM_ITS ---
- Consult Date of Consult: 11/30/17 - Reason for Consult Chief Complaint: lower GI bleeding, anemia History of Present Illness: 72 y/o morbidly obese female presents with anemia, Hgb 7.1, and lower GI bleeding. Notes BRBPR occasionally with bowel movements. Presented to ED, with hemodynamically stable. Admitted to hospitalist service. On chronic coumadin for afib. Denies history of PUD. Underwent colonoscopy by Dr. Hobbs on 12/25/16 for same as above. Findings of extensive diverticular disease - biopsy of right colon was negative - (concern for ischemic colitis) Past Medical History: morbid obesity diabetes chronic kidney disease stage III CAD chronic afib hypertension pulmonary hypertension Past Surgical History: hysterectomy appendectomy right foot surgery Medications: Ascorbic Acid [Vitamin C] Budesonide/Formoterol Fumarate 2 puff IH BID Calcium Citrate 500 mg PO TID Cholecalciferol (Vitamin D3) 4,000 unit PO DAILY Febuxostat [Uloric] 80 mg PO DAILY Furosemide [Lasix] 20 mg PO DAILY Linagliptin [Tradjenta] 5 mg PO DAILY PRN Lisinopril [Zestril] 10 mg PO DAILY Magnesium Oxide [Magnesium] 250 mg PO DAILY Metoprolol Tartrate [Lopressor 100 mg PO BID 11/18/17 Multivitamin [Daily Multiple 1 each PO DAILY Pravastatin Sodium 80 mg PO QHS Ropinirole HCl [Requip] 0.25 mg PO DAILY Sildenafil Citrate [Revatio] 20 mg PO TID Ubidecarenone [Coenzyme Q-10] 100 mg PO DAILY 8 Warfarin [Coumadin ([facility])] 5 mg PO DAILY hydrALAZINE [Apresoline] 25 mg PO TID Ferrous Sulfate Allergies: Has no known drug allergies Social history: TOB use denies Review of Systems: General - denies fevers, denies anorexia Cardiovascular denies chest pain Pulmonary denies coughing up blood Gastrointestinal as per HPIs Neurological denies seizures Genitourinary denies blood in urine Hematological is on chronic coumadin, has had blood transfusions Skin denies open nonhealing wounds Musculoskeletal has some back pain Endocrine has diabetes Psychological denies hallucinations Physical examination: Vital signs Temp 98.1F HR 98 RR 16 BP 132/87 BMI 58 General WD/WN morbidely obese WF in no apparent distress, alert and oriented , not septic appearing HEENT Normocephalic. EOM intact with sclera clear and no icterus noted. Neck is supple with no jugular venous distention noted. Trachea is midline. Lungs clear to auscultation. normal breath sounds in all lung rodriguez. No rales/rhonchi/wheezing noted. No labored breathing noted, such as retractions. Heart normal S1 and S2 auscultated. No rubs/clicks/murmurs noted. Normal size and location by auscultation. Abdomen soft and benign. difficult to determine if any masses due to body habitus. Extremities no calf tenderness noted. Genitourinary/Rectal deferred Skin normal skin integrity. Neurological no focal deficits noted. 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 Will continue to monitor Hgb. If remains stable then consider d/c to home, patient does not want colonoscopy if doesn't have to. If Hgb continues to decline, will then proceed with colonoscopy tomorrow. Will also consider EGD, too. Can be on clear liquid diet today. I have explained procedure of colonoscopy which she had last year. I have counseled the patient as to the risks of the procedure, including but not limited to: infection, bleeding, injury to any intraabdominal organs such as liver/spleen, perforation of the GI tract, inability to complete the procedure, complications of anesthesia, postoperative pneumonia/cardiac problems /blood clots etc. the patient understands. She agrees with the above plan. I have answered all questions to the patient?s satisfaction and the patient has no further questions. Greater than 50% of this patient encounter was spent in face to face discussion.
[2017-11-30] MEDS: Furosemide 100 MG/10 ML Vial 60 MG IV (10:16)
[2017-11-30] MEDS: Pramipexole Di-HCl 0.125 MG Tablet PO (11:36)
[2017-11-30] MEDS: Ferrous Sulfate 325 MG Tablet PO ×2 (11:36→17:07)
[2017-11-30 11:48] LABS: Hematocrit 25.8 % (37-47); Hemoglobin 7.6 g/dl (12.0-15.0)
[2017-11-30 12:00] LABS: Bedside Glucose 132 mg/dL (70-110)
[2017-11-30] MEDS: dilTIAZem 25 MG/5 ML Vial 10 MG IV BOLUS (13:06)
--- NOTE | 2017-11-30 15:27 | ONC.CONS.INP ---
Consult Referring Physician: Dr. Nohemi Walker Subjective Date of Service:: 11/30/17 Chief Complaint: Anemia, acute GI bleed History of Present Illness: Patient is a 72-year-old female with a past medical history notable for morbid obesity, diabetes, chronic renal failure, hypertension, chronic atrial fibrillation on long-term anticoagulation and chronic GI blood loss attributed to diverticular disease (most recent colonoscopy was in 2017 under the care of Dr. Hobbs. Findings of which were positive for extensive diverticular disease - biopsy of right colon was negative - (concern for ischemic colitis). There had been occasions when her Coumadin anticoagulation had to be held due to increasing GI blood loss despite the fact that she is at an increased risk for cerebrovascular events from chronic atrial fibrillation Receives Venofer intermittently for management of chronic, recurrent anemia attributable to iron deficiency r/t chronic GI blood loss. Found to have Hgb 7.1 as an outpatient 11/29/17 and subsequently presented to [facility] ED with c/o hematochezia. Stool Guaiac positive. Coumadin held, given PO vitamin K. Given 1 unit PRBCs and has been evaluated by Dr. Birmingham who is considering colonoscopy/EGD tomorrow. Upon assessment, described episode of hematochezia approx 3 hours ago. Reports she had been taking PO ferrous sulfate BID with vitamin C as advised and tolerates well. Last dose of Venofer given 11/14/17. Specifically denies CP, SOB while on O2, abd pain, diarrhea and any other episodes of maggie bleeding. Past Medical History: Chronic Problems (Last Reviewed 11/04/17 @ 12:55 by Shirley Mcpherson) CKD (chronic kidney disease), stage III (Chronic) Atherosclerotic heart disease of [place] coro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 pectoris (Chronic) [facility]: 07/30/2006; 04/10/17 Chronic atrial fibrillation (Chronic) Hyperkalemia (Chronic) HLD (hyperlipidemia) (Chronic) HTN (hypertension) (Chronic) Non-ST elevation (NSTEMI) myocardial infarction (Chronic) Nonrheumatic aortic (valve) stenosis (Chronic) Nonrheumatic mitral (valve) insufficiency (Chronic) Nonrheumatic tricuspid (valve) insufficiency (Chronic) Other secondary pulmonary hypertension (Chronic) SOB (shortness of breath) (Chronic) NSTEMI (non-ST elevated myocardial infarction) (Chronic) Chronic atrial fibrillation (Chronic) Hypertension (Chronic) Hyperlipidemia (Chronic) Type 2 diabetes mellitus (Chronic) CAD (coronary artery disease) (Chronic) Anemia (Chronic) CRF (chronic renal failure) (Chronic) Iron deficiency anemia (Chronic) Diverticular disease (Chronic) Morbid obesity (Chronic) Past Medical/Surgical History: Past Medical History - Most Recent Inpatient Visit Past Medical History Start: 11/30/17 00:37 Text: Status: Complete Freq: ONCE Protocol: Document 11/30/17 00:37 AMS (Rec: 11/30/17 00:42 AMS [id number]) BMI Required to complete PMH What is Patient's BMI 58.4 Past Medical History Unable History Recalled No Query Text:Pt Unable/Family Not Present Neurologic Medical History Hx Stroke/TIA No Hx Dementia/Alzheimer's No Hx Parkinson's Disease No Hx Seizures No Hx Multiple Sclerosis No Hx Migraines No Cardiac Medical History VTE Present on Admission No Hx of Deep Vein Thrombosis/VTE/PE No Hx Hypertension Yes Hx Chest Pain/Angina No Hx Heart Attack Yes: 11/2016 Hx Cardiac Surgery/Stents/Etc. No Hx Heart Failure No Hx Pacemaker/AICD No Hx Irregular Heartbeat and/or Afib Yes Hx Anticoagulant Therapy Yes: coumadin Query Text:(Coumadin, Aspirin, Plavix, Xarelto, etc.) Hx Pain in Legs when Walking/Leg Cramps No Respiratory Medical History Hx COPD No Hx Emphysema No Hx Smoking No Smoking Status Never smoker Tobacco Use Non-smoker Hx Tobacco Use in last 12 months No Hx Sleep Apnea Yes: cpap CPAP Yes BIPAP No STOP Results Positive GI Medical History Hx Ulcer No Hx Hepatitis No Hx Cirrhosis No Hx GI Bleed No Hx Unplanned Weight Loss No Genitourinary Medical History Indwelling Catheter in Place on Arrival/ No Admission Hx Renal Disease Yes: low renal function Hx Dialysis No Musculoskeletal History Hx Arthritis No Hx Rheumatoid Arthritis No Endocrine Medical History Hx Diabetes Yes Hx Thyroid Disease No Hematologic Medical History Hx of Blood Transfusion Yes Hx of Transfusion in last 3 Months No Ever experience any problems with No transfusion(s)? Hx of Preganancy in last 3 Months No Nurse Filling Out Transfusion & ASELF Questions: Date: 11/30/17 Time: 00:41 Psycho/Social Medical History Hx Depression No Hx Anxiety No Hx Behavior Disorder No Hx Alcohol Use No Hx Substance Use No Other Medical History Hx Blood Disorders No Hx Anemia Yes Hx Cancer No Hx Drug Resistant Organism No Wound/Pressure Injury Present on Arrival No /Admission Query Text:If yes, chart assessment in Shift/Clinical Findings Central Line/PICC/VAD Present on Arrival No /Admission Antibiotics within last 7 days? No Methicillin Resistant Staphylococcus aureus Screening Active MRSA No Risk for Readmission Number of Risk Factors 4 At Risk for Readmission Patient is At Risk For Readmission Patient is eligible for Call Back Y Past Medical History (Last Reviewed 11/04/17 @ 12:55 by Shirley Mcpherson) Atherosclerotic heart disease of [place] coro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 pectoris (Chronic) Chronic atrial fibrillation (Chronic) GI bleed (Acute) Hyperkalemia (Chronic) HLD (hyperlipidemia) (Chronic) HTN (hypertension) (Chronic) Non-ST elevation (NSTEMI) myocardial infarction (Chronic) Nonrheumatic aortic (valve) stenosis (Chronic) Nonrheumatic mitral (valve) insufficiency (Chronic) Nonrheumatic tricuspid (valve) insufficiency (Chronic) Other secondary pulmonary hypertension (Chronic) SOB (shortness of breath) (Chronic) Anemia (Acute) Arthritis (Acute) Bloody stool (Acute) Diabetes (Acute) Diverticulitis (Acute) Fatigue (Acute) Heart attack (Acute) Heart disease (Acute) History of GI bleed (Acute) History of blood transfusion (Acute) History of pneumonia (Acute) Kidney disease (Acute) Knee pain (Acute) Liver disease (Acute) Obesity (Acute) Osteopenia (Acute) Pulmonary hypertension (Acute) Sepsis (Acute) Sepsis secondary to UTI (Acute) Past Surgical History (Last Reviewed 11/04/17 @ 12:55 by Shirley Mcpherson) History of appendectomy (Acute) History of hysterectomy (Acute) Status post right foot surgery (Acute) History of left heart catheterization (LHC) (Resolved) Maternal Family History: Family History (Last Reviewed 11/04/17 @ 12:56 by Shirley Mcpherson) Mother Uterine cancer Hypertension Father Heart disease Diabetes CAD (coronary artery disease) Hypertension Family History: - - Mother with a history of hypertension, uterine cancer. Paternal Family History: Family History (Last Reviewed 11/04/17 @ 12:56 by Shirley Mcpherson) Mother Uterine cancer Hypertension Father Heart disease Diabetes CAD (coronary artery disease) Hypertension Family History: - - Father with a history of coronary artery disease, diabetes, heart disease, hypertension. - Social History Lives: Spouse/ Significant Other Smoking Status: Never smoker Tobacco Use: Non-smoker Alcohol: None Drugs: None Allergies/Adverse Reactions: Allergy/AdvReac Type Severity Reaction Status Date / Time No Known Allergies Allergy Verified 11/30/17 01:15 Home Medications Medication Instructions Recorded Amoxicillin 2,000 mg PO X1 PRN 11/18/17 Ascorbic Acid [Vitamin C] 1,000 mg PO BID 11/18/17 Budesonide/Formoterol Fumarate 2 puff IH BID 11/18/17 [Symbicort 160-4.5 Mcg Inhaler] Calcium Citrate 500 mg PO TID 11/18/17 Cholecalciferol (Vitamin D3) 4,000 unit PO DAILY 11/18/17 [Vitamin D3] Febuxostat [Uloric] 80 mg PO DAILY 11/18/17 Furosemide [Lasix] 20 mg PO DAILY 11/18/17 Linagliptin [Tradjenta] 5 mg PO DAILY PRN 11/18/17 Lisinopril [Zestril] 10 mg PO DAILY 11/18/17 Magnesium Oxide [Magnesium] 250 mg PO BID 11/18/17 Metoprolol Tartrate [Lopressor 100 mg PO BID 11/18/17 (Beta Matthieu)] Multivitamin [Daily Multiple 1 each PO DAILY 11/18/17 Vitamin] Pravastatin Sodium 80 mg PO QHS 11/18/17 Ropinirole HCl [Requip] 0.25 mg PO QHS 11/18/17 Sildenafil Citrate [Revatio] 20 mg PO TID 11/18/17 Ubidecarenone [Coenzyme Q-10] 100 mg PO DAILY 11/18/17 Warfarin [Coumadin ([facility])] 5 mg PO DAILY 11/18/17 hydrALAZINE [Apresoline] 25 mg PO TID 11/18/17 Ferrous Sulfate 325 mg PO BID 11/29/17 Review of Systems Constitutional:: Reports: Weakness, Fatigue. Denies: Fever, Sweats, Weight loss, Appetite change, Chills Cardiovascular:: Reports: Dyspnea on exertion. Denies: Chest pain, Palpitations, Orthopnea, PND, Shortness of breath Respiratory: Reports: Shortness of breath upon exertion. Denies: Cough, Hemoptysis, Wheezing Gastrointestinal:: Reports: Hematochezia. Denies: Abdominal pain, Nausea, Vomiting, Diarrhea, Constipation Genitourinary: Denies: Dysuria, Hematuria, 15, Flank pain Skin: Denies: Rash, Skin Changes, Wounds Neurological:: Denies: Headache, Dizziness, Numbness, Tingling, Visual changes, Tinnitus, Hearing loss Psychiatric: Denies: Anxiety, Depression, Homicidal Ideations, Suicidal Ideations Vital Signs Height 5 ft 7 in Weight: 373 lb 0.354 oz Weight in Pounds 373.0 lbs Pulse Ox 97 Temperature 98.1 F Pulse Rate 103 Respiratory Rate 16 Blood Pressure [BP] 125/57 Blood Pressure 105/45 Blood Pressure Position [BP] Sitting Blood Pressure Position Semi-Fowlers - Physical Exam General: Alert, Oriented x3, No apparent distress HEENT: Atraumatic, Normocephalic Oropharynx:: Dry mucosa Neck:: Supple, Trachea midline. Negative for: JVD, bilateral Cardiac:: Regular rate, Regular rhythm Lungs: Clear to auscultation, Wheezes - faint expiratory bilat, Excusion symmetrical. Negative for: Rhonchi, Tachypneic, Increased respiratory effort Abdomen:: Bowel sounds x 4, Soft, Non-tender, Non-distended. Negative for: Hepatosplenomegaly - Difficult to discern d/t large body habitus Extremities:: Edema - BLE, wearing SCDS. Negative for: Cyanosis, Calf tenderness Neurological: Neuro grossly intact Skin:: Negative for: Lesions, Rash, Petechiae, Ecchymosis Psychiatric:: Appropriate affect, Euthymic Lymphatics:: Negative for: Cervical lymphadenopathy, Supraclavicular lymphadenopathy Laboratory Data: Laboratory Tests 11/30/17 11/30/17 11/30/17 Range/Units 11:48 11:33 07:22 Hgb 7.6 L (12.0-15.0) g/dl Hct 25.8 L (37-47) % PT (11.7-14.9) SECONDS INR Sodium 141 (136-145) mmol/L Potassium 4.6 (3.5-5.1) mmol/L Chloride 111 H (98-107) mmol/L Carbon Dioxide 22.0 (21.0-32.0) mmol/L Anion Gap 8 (5-15) BUN 32 H (7-18) mg/dL Creatinine 1.50 H (0.55-1.02) mg/dL Estim Creat Clear Calc 32.00 ml/min Est GFR (MDRD) Af Amer 44 L (>60) mL/min Est GFR (MDRD) Non-Af 36 L (>60) mL/min BUN/Creatinine Ratio 21.3 H (10-20) RATIO Glucose 110 H (74-106) mg/dL Calcium 8.6 (8.5-10.1) mg/dL POC Glucose 132 H (70-110) mg/dL 11/30/17 11/30/17 11/30/17 Range/Units 07:22 07:22 06:30 Hgb 7.3 L (12.0-15.0) g/dl Hct 25.3 L (37-47) % PT 24.5 H (11.7-14.9) SECONDS INR 2.2 Sodium (136-145) mmol/L Potassium (3.5-5.1) mmol/L Chloride (98-107) mmol/L Carbon Dioxide (21.0-32.0) mmol/L Anion Gap (5-15) BUN (7-18) mg/dL Creatinine (0.55-1.02) mg/dL Estim Creat Clear Calc ml/min Est GFR (MDRD) Af Amer (>60) mL/min Est GFR (MDRD) Non-Af (>60) mL/min BUN/Creatinine Ratio (10-20) RATIO Glucose (74-106) mg/dL Calcium (8.5-10.1) mg/dL POC Glucose 118 H (70-110) mg/dL Diagnostic Data: Diagnostic Data Chest X-Ray 11/30/17 05:55 IMPRESSION: Left lower lung infiltrate or edema and pleural effusion. Cardiac enlargement. Electronically Signed: Amador Guo MD at 8:20 EDT , Service support , Assessment and Plan Patient is a 72-year-old female with a past medical history significant for morbid obesity, diabetes, chronic renal failure, hypertension, chronic atrial fibrillation on long-term anticoagulation and chronic GI blood loss attributed to diverticular disease (most recent colonoscopy was in 2017 under the care of Dr. Hobbs. Findings of which were positive for extensive diverticular disease - biopsy of right colon was negative - (concern for ischemic colitis). There had been occasions when her Coumadin anticoagulation had to be held due to increasing GI blood loss despite the fact that she is at an increased risk for cerebrovascular events from chronic atrial fibrillation Receives Venofer intermittently for management of chronic, recurrent anemia attributable to iron deficiency r/t chronic GI blood loss. Found to have Hgb 7.1 as an outpatient 11/29/17 and subsequently presented to [facility] ED with c/o hematochezia. Stool Guaiac positive. Coumadin held, given PO vitamin K 1. Anemia secondary to acute on chronic blood loss from GI tract- Experiencing hematochezia, being considered for colonoscopy/EGD per Dr. Birmingham. Most recent H/H showed 7.6/25.8, modestly improved from admission subsequent to 1 unit PRBCs. Given the context of her cardiac disease and patient remains symptomatic by way of dyspnea, can consider administration of 1 additional unit PRBCS if Hgb remains < 8 with next H/H due at 1800. 2. DVT prophylaxis: SCDs, chemoprophylaxis contraindicated d/t presence of bleed. Leslie Peres, PABLO, FABRIC SEPARATOR OPERATOR-C, AOCNP Medications: Prescriptions This Visit Medication Instructions Recorded Ferrous Sulfate 325 mg PO BID 11/29/17 Medications Added to Medication List This Visit Category Date Time Status Dextrose 5%-Water 100 ml Med 11/30/17 12:00 Active Diltiazem [Cardizem] 125 mg CONT INF 5 mg/hr Ferrous Sulfate Med 11/30/17 08:00 Active 325 mg PO BIDCM Pramipexole Di-HCl [Mirapex] Med 11/30/17 10:00 Active 0.125 mg PO DAILY Pravastatin [Pravachol] Med 11/30/17 22:00 Active 80 mg PO QHS Sildenafil Citrate [Revatio] Med 11/30/17 06:45 Active 20 mg PO TID Primary Care Provider: Jyothi Weber Referring Provider:
--- NOTE | 2017-11-30 15:38 | CON.PCM_ITS ---
Consult Referring Physician: Dr. Nohemi Walker Subjective Date of Service:: 11/30/17 Chief Complaint: Anemia, acute GI bleed History of Present Illness: Patient is a 72-year-old female with a past medical history notable for morbid obesity, diabetes, chronic renal failure, hypertension, chronic atrial fibrillation on long-term anticoagulation and chronic GI blood loss attributed to diverticular disease (most recent colonoscopy was in 2017 under the care of Dr. Hobbs. Findings of which were positive for extensive diverticular disease - biopsy of right colon was negative - (concern for ischemic colitis). There had been occasions when her Coumadin anticoagulation had to be held due to increasing GI blood loss despite the fact that she is at an increased risk for cerebrovascular events from chronic atrial fibrillation Receives Venofer intermittently for management of chronic, recurrent anemia attributable to iron deficiency r/t chronic GI blood loss. Found to have Hgb 7.1 as an outpatient and [facility] with c/o hematochezia. Stool Guaiac positive. Coumadin held, given PO vitamin K. Given 1 unit PRBCs and has been evaluated by Dr. Birmingham who is considering colonoscopy/EGD tomorrow. Upon assessment, described episode of hematochezia approx 3 hours ago. Reports she had been taking PO ferrous sulfate BID with vitamin C as advised and tolerates well. Last dose of Venofer given 11/14/17. Specifically denies CP, SOB while on O2, abd pain, diarrhea and any other episodes of maggie bleeding. Past Medical History: Chronic Problems (Last Reviewed 11/04/17 @ 12:55 by Shirley Mcpherson) CKD (chronic kidney disease), stage III (Chronic) Atherosclerotic heart disease of nome coro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 pectoris (Chronic) [facility]: 07/30/2006; 04/10/17 Chronic atrial fibrillation (Chronic) Hyperkalemia (Chronic) HLD (hyperlipidemia) (Chronic) HTN (hypertension) (Chronic) Non-ST elevation (NSTEMI) myocardial infarction (Chronic) Nonrheumatic aortic (valve) stenosis (Chronic) Nonrheumatic mitral (valve) insufficiency (Chronic) Nonrheumatic tricuspid (valve) insufficiency (Chronic) Other secondary pulmonary hypertension (Chronic) SOB (shortness of breath) (Chronic) NSTEMI (non-ST elevated myocardial infarction) (Chronic) Chronic atrial fibrillation (Chronic) Hypertension (Chronic) Hyperlipidemia (Chronic) Type 2 diabetes mellitus (Chronic) CAD (coronary artery disease) (Chronic) Anemia (Chronic) CRF (chronic renal failure) (Chronic) Iron deficiency anemia (Chronic) Diverticular disease (Chronic) Morbid obesity (Chronic) Past Medical/Surgical History: Past Medical History - Most Recent Inpatient Visit Past Medical History Start: 11/30/17 00: 37 Text: Status: Complete Freq: ONCE Protocol: Document 11/30/17 00:37 AMS (Rec: 11/30/17 00:42 AMS [id number]) BMI Required to complete PMH What is Patient's BMI 58.4 Past Medical History Unable History Recalled No Query Text:Pt Unable/Family Not Present Neurologic Medical History Hx Stroke/TIA No Hx Dementia/Alzheimer's No Hx Parkinson's Disease No Hx Seizures No Hx Multiple Sclerosis No Hx Migraines No Cardiac Medical History VTE Present on Admission No Hx of Deep Vein Thrombosis/VTE/PE No Hx Hypertension Yes Hx Chest Pain/Angina No Hx Heart Attack Yes: 11/2016 Hx Cardiac Surgery/Stents/Etc. No Hx Heart Failure No Hx Pacemaker/AICD No Hx Irregular Heartbeat and/or Afib Yes Hx Anticoagulant Therapy Yes: coumadin Query Text:(Coumadin, Aspirin, Plavix, Xarelto, etc.) Hx Pain in Legs when Walking/Leg Cramps No Respiratory Medical History Hx COPD No Hx Emphysema No Hx Smoking No Smoking Status Never smoker Tobacco Use Non-smoker Hx Tobacco Use in last 12 months No Hx Sleep Apnea Yes: cpap CPAP Yes BIPAP No STOP Results Positive GI Medical History Hx Ulcer No Hx Hepatitis No Hx Cirrhosis No Hx GI Bleed No Hx Unplanned Weight Loss No Genitourinary Medical History Indwelling Catheter in Place on Arrival/ No Admission Hx Renal Disease Yes: low renal function Hx Dialysis No Musculoskeletal History Hx Arthritis No Hx Rheumatoid Arthritis No Endocrine Medical History Hx Diabetes Yes Hx Thyroid Disease No Hematologic Medical History Hx of Blood Transfusion Yes Hx of Transfusion in last 3 Months No Ever experience any problems with No transfusion(s)? Hx of Preganancy in last 3 Months No Nurse Filling Out Transfusion & ASELF Questions: Date: 11/30/17 Time: 00:41 Psycho/Social Medical History Hx Depression No Hx Anxiety No Hx Behavior Disorder No Hx Alcohol Use No Hx Substance Use No Other Medical History Hx Blood Disorders No Hx Anemia Yes Hx Cancer No Hx Drug Resistant Organism No Wound/Pressure Injury Present on Arrival No /Admission Query Text:If yes, chart assessment in Shift/Clinical Findings Central Line/PICC/VAD Present on Arrival No /Admission Antibiotics within last 7 days? No Methicillin Resistant Staphylococcus aureus Screening Active MRSA No Risk for Readmission Number of Risk Factors 4 At Risk for Readmission Patient is At Risk For Readmission Patient is eligible for Call Back Y Past Medical History (Last Reviewed 11/04/17 @ 12:55 by Shirley Mcpherson) Atherosclerotic heart disease of nome coro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 pectoris (Chronic) Chronic atrial fibrillation (Chronic) GI bleed (Acute) Hyperkalemia (Chronic) HLD (hyperlipidemia) (Chronic) HTN (hypertension) (Chronic) Non-ST elevation (NSTEMI) myocardial infarction (Chronic) Nonrheumatic aortic (valve) stenosis (Chronic) Nonrheumatic mitral (valve) insufficiency (Chronic) Nonrheumatic tricuspid (valve) insufficiency (Chronic) Other secondary pulmonary hypertension (Chronic) SOB (shortness of breath) (Chronic) Anemia (Acute) Arthritis (Acute) Bloody stool (Acute) Diabetes (Acute) Diverticulitis (Acute) Fatigue (Acute) Heart attack (Acute) Heart disease (Acute) History of GI bleed (Acute) History of blood transfusion (Acute) History of pneumonia (Acute) Kidney disease (Acute) Knee pain (Acute) Liver disease (Acute) Obesity (Acute) Osteopenia (Acute) Pulmonary hypertension (Acute) Sepsis (Acute) Sepsis secondary to UTI (Acute) Past Surgical History (Last Reviewed 11/04/17 @ 12:55 by Shirley Mcpherson) History of appendectomy (Acute) History of hysterectomy (Acute) Status post right foot surgery (Acute) History of left heart catheterization (LHC) (Resolved) Maternal Family History: Family History (Last Reviewed 11/04/17 @ 12:56 by Shirley Mcpherson) Mother Uterine cancer Hypertension Father Heart disease Diabetes CAD (coronary artery disease) Hypertension Family History: - - Mother with a history of hypertension, uterine cancer. Paternal Family History: Family History (Last Reviewed 11/04/17 @ 12:56 by Shirley Mcpherson) Mother Uterine cancer Hypertension Father Heart disease Diabetes CAD (coronary artery disease) Hypertension Family History: - - Father with a history of coronary artery disease, diabetes, heart disease, hypertension. - Social History Lives: Spouse/ Significant Other Smoking Status: Never smoker Tobacco Use: Non-smoker Alcohol: None Drugs: None Allergies/Adverse Reactions: Allergy/AdvReac Type Severity Reaction Status Date / Time No Known Allergies Allergy Verified 11/30/17 01:15 Home Medications Medication Instructions Recorded Amoxicillin 2,000 mg PO X1 PRN 11/18/17 Ascorbic Acid [Vitamin C] 1,000 mg PO BID 11/18/17 Budesonide/Formoterol Fumarate 2 puff IH BID 11/18/17 [Symbicort 160-4.5 Mcg Inhaler] Calcium Citrate 500 mg PO TID 11/18/17 Cholecalciferol (Vitamin D3) 4,000 unit PO DAILY 11/18/17 [Vitamin D3] Febuxostat [Uloric] 80 mg PO DAILY 11/18/17 Furosemide [Lasix] 20 mg PO DAILY 11/18/17 Linagliptin [Tradjenta] 5 mg PO DAILY PRN 11/18/17 Lisinopril [Zestril] 10 mg PO DAILY 11/18/17 Magnesium Oxide [Magnesium] 250 mg PO BID 11/18/17 Metoprolol Tartrate [Lopressor 100 mg PO BID 11/18/17 (Beta Matthieu)] Multivitamin [Daily Multiple 1 each PO DAILY 11/18/17 Vitamin] Pravastatin Sodium 80 mg PO QHS 11/18/17 Ropinirole HCl [Requip] 0.25 mg PO QHS 11/18/17 Sildenafil Citrate [Revatio] 20 mg PO TID 11/18/17 Ubidecarenone [Coenzyme Q-10] 100 mg PO DAILY 11/18/17 Warfarin [Coumadin ([facility])] 5 mg PO DAILY 11/18/17 hydrALAZINE [Apresoline] 25 mg PO TID 11/18/17 Ferrous Sulfate 325 mg PO BID 11/29/17 Review of Systems Constitutional:: Reports: Weakness, Fatigue. Denies: Fever, Sweats, Weight loss , Appetite change, Chills Cardiovascular:: Reports: Dyspnea on exertion. Denies: Chest pain, Palpitations , Orthopnea, PND, Shortness of breath Respiratory: Reports: Shortness of breath upon exertion. Denies: Cough, Hemoptysis, Wheezing Gastrointestinal:: Reports: Hematochezia. Denies: Abdominal pain, Nausea, Vomiting, Diarrhea, Constipation Genitourinary: Denies: Dysuria, Hematuria, 15, Flank pain Skin: Denies: Rash, Skin Changes, Wounds Neurological:: Denies: Headache, Dizziness, Numbness, Tingling, Visual changes, Tinnitus, Hearing loss Psychiatric: Denies: Anxiety, Depression, Homicidal Ideations, Suicidal Ideations Vital Signs Height 5 ft 7 in Weight: 373 lb 0.354 oz Weight in Pounds 373.0 lbs Pulse Ox 97 Temperature 98.1 F Pulse Rate 103 Respiratory Rate 16 Blood Pressure [BP] 125/57 Blood Pressure 105/45 Blood Pressure Position [BP] Sitting Blood Pressure Position Semi-Fowlers - Physical Exam General: Alert, Oriented x3, No apparent distress HEENT: Atraumatic, Normocephalic Oropharynx:: Dry mucosa Neck:: Supple, Trachea midline. Negative for: JVD, bilateral Cardiac:: Regular rate, Regular rhythm Lungs: Clear to auscultation, Wheezes - faint expiratory bilat, Excusion symmetrical. Negative for: Rhonchi, Tachypneic, Increased respiratory effort Abdomen:: Bowel sounds x 4, Soft, Non-tender, Non-distended. Negative for: Hepatosplenomegaly - Difficult to discern d/t large body habitus Extremities:: Edema - BLE, wearing SCDS. Negative for: Cyanosis, Calf tenderness Neurological: Neuro grossly intact Skin:: Negative for: Lesions, Rash, Petechiae, Ecchymosis Psychiatric:: Appropriate affect, Euthymic Lymphatics:: Negative for: Cervical lymphadenopathy, Supraclavicular lymphadenopathy Laboratory Data: Laboratory Tests 3 11/30/17 11/30/17 11/30/17 Range/Units 11:48 11:33 07:22 Hgb 7.6 L (12.0-15.0) g/dl Hct 25.8 L (37-47) % PT (11.7-14.9) SECONDS INR Sodium 141 (136-145) mmol/L Potassium 4.6 (3.5-5.1) mmol/L Chloride 111 H (98-107) mmol/L Carbon Dioxide 22.0 (21.0-32.0) mmol/L Anion Gap 8 (5-15) BUN 32 H (7-18) mg/dL Creatinine 1.50 H (0.55-1.02) mg/dL Estim Creat Clear Calc 32.00 ml/min Est GFR (MDRD) Af Amer 44 L (>60) mL/min Est GFR (MDRD) Non-Af 36 L (>60) mL/min BUN/Creatinine Ratio 21.3 H (10-20) RATIO Glucose 110 H (74-106) mg/dL Calcium 8.6 (8.5-10.1) mg/dL POC Glucose 132 H (70-110) mg/dL 3 11/30/17 11/30/17 11/30/17 Range/Units 07:22 07:22 06:30 Hgb 7.3 L (12.0-15.0) g/dl Hct 25.3 L (37-47) % PT 24.5 H (11.7-14.9) SECONDS INR 2.2 Sodium (136-145) mmol/L Potassium (3.5-5.1) mmol/L Chloride (98-107) mmol/L Carbon Dioxide (21.0-32.0) mmol/L Anion Gap (5-15) BUN (7-18) mg/dL Creatinine (0.55-1.02) mg/dL Estim Creat Clear Calc ml/min Est GFR (MDRD) Af Amer (>60) mL/min Est GFR (MDRD) Non-Af (>60) mL/min BUN/Creatinine Ratio (10-20) RATIO Glucose (74-106) mg/dL Calcium (8.5-10.1) mg/dL POC Glucose 118 H (70-110) mg/dL Diagnostic Data: Diagnostic Data Chest X-Ray 11/30/17 05:55 IMPRESSION: Left lower lung infiltrate or edema and pleural effusion. Cardiac enlargement. Electronically Signed: Amador Guo MD at 8:20 EDT , Service support , Assessment and Plan Patient is a 72-year-old female with a past medical history significant for morbid obesity, diabetes, chronic renal failure, hypertension, chronic atrial fibrillation on long-term anticoagulation and chronic GI blood loss attributed to diverticular disease (most recent colonoscopy was in 2017 under the care of Dr. Hobbs. Findings of which were positive for extensive diverticular disease - biopsy of right colon was negative - (concern for ischemic colitis). There had been occasions when her Coumadin anticoagulation had to be held due to increasing GI blood loss despite the fact that she is at an increased risk for cerebrovascular events from chronic atrial fibrillation Receives Venofer intermittently for management of chronic, recurrent anemia attributable to iron deficiency r/t chronic GI blood loss. Found to have Hgb 7.1 as an outpatient and [facility] with c/o hematochezia. Stool Guaiac positive. Coumadin held, given PO vitamin K 1. Anemia secondary to acute on chronic blood loss from GI tract- Experiencing hematochezia, being considered for colonoscopy/EGD per Dr. Birmingham. Most recent H/H showed 7.6/25.8, modestly improved from admission subsequent to 1 unit PRBCs. Given the context of her cardiac disease and patient remains symptomatic by way of dyspnea, can consider administration of 1 additional unit PRBCS if Hgb remains < 8 with next H/H due at 1800. 2. DVT prophylaxis: SCDs, chemoprophylaxis contraindicated d/t presence of bleed. Leslie Peres, PABLO, GEOGRAPHIC INFORMATION SYSTEMS MANAGER-C, AOCNP Medications: Prescriptions This Visit Medication Instructions Recorded Ferrous Sulfate 325 mg PO BID 11/29/17 Medications Added to Medication List This Visit Category Date Time Status Dextrose 5%-Water 100 ml Med 11/30/17 12:00 Active Diltiazem [Cardizem] 125 mg CONT INF 5 mg/hr Ferrous Sulfate Med 11/30/17 08:00 Active 325 mg PO BIDCM Pramipexole Di-HCl [Mirapex] Med 11/30/17 10:00 Active 0.125 mg PO DAILY Pravastatin [Pravachol] Med 11/30/17 22:00 Active 80 mg PO QHS Sildenafil Citrate [Revatio] Med 11/30/17 06:45 Active 20 mg PO TID Primary Care Provider: Jyothi Weber Referring Provider:
--- NOTE | 2017-11-30 15:57 | CASEMGMT ---
CHART REVIEW: MOHINI Strata: 3 ADM Dx: GI Bleed Last Admission: 12/2016 ATKA: Patient presented to ED, 11/29/17, after being told by her PCP to report due to anemia, HGB 7.1. Patient was transfused 1 Unit PRBC, and Dr. Khan and Dr. Birmingham have been consulted. Transition Planning/Care Coordination: The patient's PCP is Jyothi Weber and patient follows with Dr. Khan and Leslie Peres for anemia. The patient lives with her spouse. Patient normally independent, up SBA in the room; SOB and tachycardic with exertion. Patient will transition to home when medically ready. No home-going needs identified at this time. RN CM will continue to follow hospital course for anticipated transition planning and/or care coordination needs. Disposition: Home TJOSEPH Villalobos, RN-BC, CCM
[2017-11-30 17:11] LABS: Bedside Glucose 140 mg/dL (70-110)
[2017-11-30 17:41] LABS: Hematocrit 25.5 % (37-47); Hemoglobin 7.4 g/dl (12.0-15.0)
[2017-11-30] MEDS: Pravastatin 80 MG Tablet PO (22:16)
[2017-11-30 22:26] LABS: Bedside Glucose 126 mg/dL (70-110)
[2017-11-30 23:33] LABS: Hematocrit 23.3 % (37-47); Hemoglobin 6.8 g/dl (12.0-15.0)
[2017-11-30] MEDS: Electrolyte Solution/Peg's 4000 ML 2000 ML PO (23:45)
[2017-12-01] VITALS (37 sets, daily range): BP systolic 88–150; BP diastolic 40–98; PULSE 67–121; RESP 16–32; TEMP 36.8–37.7; O2SAT 92–100; BMI 58.3
[2017-12-01] MEDS: Ipratropium/Albuterol Sulfate 3 ML AMPUL.NEB INHALATION ×4 (00:55→23:17)
[2017-12-01] MEDS: Albuterol 2.5 MG/3 ML VIAL.NEB. INHALATION ×2 (02:40→16:21)
[2017-12-01] MEDS: SILDENAFIL CITRATE 20 MG TABLET PO ×3 (05:38→21:44)
--- NOTE | 2017-12-01 05:55 | EKG12_ITS ---
Test Reason : MORNING EKG Blood Pressure : / mmHG Vent. Rate : 097 BPM Atrial Rate : 094 BPM P-R Int : 000 ms QRS Dur : 090 ms QT Int : 310 ms P-R-T Axes : 000 063 206 degrees QTc Int : [address] & T wave abnormality, consider inferolateral ischemia Abnormal ECG When compared with ECG of 30-NOV-2017 08:04, MANUAL COMPARISON REQUIRED, DATA IS UNCONFIRMED Confirmed by CORNELIA ANN ([id number]), food editor JONATHON ROLLE ([id number]) on 12/05/2017 3:04:22 PM Referred By: BHUPENDRA Confirmed By:CORNELIA ANN
[2017-12-01 06:39] LABS: Hematocrit 28.4 % (37-47); Hemoglobin 8.4 g/dl (12.0-15.0); Mean Corp Hgb Conc 29.6 g/gl (32-36); Mean Corpuscular Volume 101.4 fL (81-99); Platelet Count 327 K/mm3 (150-450); RBC Distribution Width CV 21.2 % (11.6-14.6); RBC Distribution Width SD 73.7 fl (35.1-43.9); White Blood Count 8.8 K/mm3 (4.4-11.0)
[2017-12-01 06:41] LABS: Scan Indicated on CBC? Y/N YES- FLAGS NOTED
[2017-12-01 06:44] LABS: BUN 29 mg/dL (7-18); BUN/Creat Ratio 16.1 RATIO (10-20); Chloride 109 mmol/L (98-107); EST Glomerular Filtration Rate 29 mL/min (>60); Est Glom Filt Rate - Afr Amer 35 mL/min (>60); Estimated Creatinine Clearance 26.66 ml/min; Glucose 135 mg/dL (74-106); Magnesium 2.4 mg/dL (1.6-2.6); Potassium 4.2 mmol/L (3.5-5.1); Sodium Level 141 mmol/L (136-145)
[2017-12-01 06:45] LABS: Anion Gap 12 (5-15)
[2017-12-01 06:55] LABS: Bedside Glucose 132 mg/dL (70-110)
[2017-12-01 07:07] LABS: Differential Comment SCAN
[2017-12-01 08:35] LABS: International Normalized Ratio 1.5; Prothrombin Time (Protime)PT. 17.7 SECONDS (11.7-14.9)
[2017-12-01 08:37] LABS: Partial Thromboplast Time 44.5 Seconds (24.1-36.2)
[2017-12-01] MEDS: 0.9% NaCl Peripheral Flush Adult/Peds IV ×2 (09:31→21:44)
[2017-12-01 11:56] LABS: Bedside Glucose 126 mg/dL (70-110)
--- NOTE | 2017-12-01 12:20 | PN_ITS ---
<Billie Segovia - Last Filed: 12/01/17 12:46> Patient Problems: Active and Suspected Problems (Last Reviewed 11/04/17 @ 12:55 by Shirley Mcpherson) Acute kidney injury (Acute) Subjective: Patient seen and examined. States she is feeling tired. Denies dizziness, lightheadedness. Denies chest pain, shortness of breath. She has had frequent bowel movements due to taking GoLYTELY for colonoscopy prep overnight. She denies maggie red blood in stool. - Physical Exam General: Alert, Oriented x3, Cooperative HEENT: Atraumatic, PERRLA, EOMI, Normocephalic Oral: Dry Mucosa Neck: Supple, No JVD, Negative Carotid Bruits Lungs: Clear to auscultation, Diminished Cardiovascular: Tachycardic, - - A.fib Abdomen: Bowel Sounds Present, Soft, Non Tender, Non-Distended, Obese Extremities: No clubbing, No cyanosis, Edema - BLLE Skin: No rashes, No breakdown Musculoskeletal: No Tenderness to Palpation of Joints or Extremities Neurological: Cranial nerves II-XII grossly intact, Neuro grossly intact Psych/Mental Status: Normal Affect, Appropriate Vital Signs Temp Pulse Resp BP Pulse Ox 99 F 109 H 22 H 136/98 H 96 12/01/17 09:00 12/01/17 12:00 12/01/17 12:00 12/01/17 12:00 12/01/17 12:00 Oxygen Flow Rate (L/min) 2 Oxygen Delivery Method Nasal Cannula Weight: 169.2 kg Body Mass Index (BMI) 58.3 Intake and Output for Last 24 Hours 11/29/17 11/30/17 12/01/17 23:59 23:59 23:59 Intake Total 2092.6 / 2092.6 4969 / 4969 Output Total 600 / 600 Balance 1492.6 / 1492.6 4969 / 4969 Laboratory Tests Past 24 Hrs 11/30/17 11/30/17 12/01/17 17:25 23:20 05:26 WBC 8.8 RBC 2.80 L Hgb 7.4 L 6.8 L 8.4 L Hct 25.5 L 23.3 L 28.4 L MCV 101.4 H MCH 30.0 MCHC 29.6 L RDW 21.2 H RDW Differential 73.7 H Plt Count 327 MPV 11.0 Differential Comment SCAN PT INR APTT Sodium Potassium Chloride Carbon Dioxide Anion Gap BUN Creatinine Estim Creat Clear Calc Est GFR (MDRD) Af Amer Est GFR (MDRD) Non-Af BUN/Creatinine Ratio Glucose Calcium Magnesium 12/01/17 12/01/17 05:26 07:43 WBC RBC Hgb Hct MCV MCH MCHC RDW RDW Differential Plt Count MPV Differential Comment PT 17.7 H INR 1.5 APTT 44.5 H Sodium 141 Potassium 4.2 Chloride 109 H Carbon Dioxide 20.0 L Anion Gap 12 BUN 29 H Creatinine 1.80 H Estim Creat Clear Calc 26.66 Est GFR (MDRD) Af Amer 35 L Est GFR (MDRD) Non-Af 29 L BUN/Creatinine Ratio 16.1 Glucose 135 H Calcium 9.0 Magnesium 2.4 POC Glucose 12/01/17 12/01/17 11/30/17 11:49 06:48 22:16 POC Glucose 126 H 132 H 126 H 11/30/17 17:03 POC Glucose 140 H Medical Necessity - Tobacco Use Smoking Status: Never smoker Tobacco Use: Non-smoker Assessment/Plan Active and Suspected Problems (Last Reviewed 11/04/17 @ 12:55 by Shirley Mcpherson) Acute kidney injury (Acute) Patient is a 72-year-old female admitted 11/29/17 due to weakness, lightheadedness. She has a past medical history of iron deficiency anemia, chronic kidney disease stage III, type 2 diabetes mellitus, hypertension, hyperlipidemia, obstructive sleep apnea, morbid obesity, bilateral lower extremity lymphedema, chronic atrial fibrillation on Coumadin therapy, history of NSTEMI, pulmonary hypertension, history of GI bleed. Patient had a C scope December [address] Hobbs due to GI bleed which showed extensive diverticular disease to the sigmoid area and some patchy erythema in the right colon. Patient's Coumadin was discontinued at that time and later restarted. 1. Acute on chronic anemia secondary to acute on chronic GI blood loss- underlying history of iron deficiency anemia. Dr. Birmingham on consult. Coumadin on hold. Patient received 1 unit packed red blood cells as well as vitamin K and FFP. Patient to undergo C scope today. Trend CBC. Continue oral iron. IV Protonix. 2. Paroxysmal A. fib with RVR-heart rate controlled. Maintained on Cardizem drip given n.p.o. status prior to c-scope. Transition to oral regimen following colonoscopy. Coumadin on hold secondary to #1. 3. Acute on chronic diastolic CHF-suspect secondary to #1. Echocardiogram from 2014 showed an EF of 55%, mild to moderate mitral valve insufficiency, pulmonary artery systolic pressure 55 mmHg. Chest x-ray showed left lower lung infiltrate/edema. BNP 217. Patient received IV Lasix ?1. 4. Acute kidney injury on chronic kidney disease stage III-follows with Dr. Mccurdy. Creat improving. 5. Type 2 diabetes mellitus-oral regimen on hold. Accu-Cheks before meals at bedtime with sliding scale insulin. 6. Hyperlipidemia-continue statin. 7. Hypertension-stable, continue current regimen. 8. CAD/History of NSTEMI-normal stress August 2016. Cath in 2005 with no significant stenosis. 9. Obstructive sleep apnea-continue CPAP 10. Chronic bilateral lower extremity lymphedema-Camron wrap bilateral lower extremities. 11. Morbid obesity-BMI 58.4. Encourage diet and lifestyle modifications. Nutrition consult. DVT prophylaxis-SCDs, pharmacologic prophylaxis contraindicated given acute GI bleed. This patient was seen by ROSALIND Nolen under the supervision of Dr. Fontaine. <Eric Fontaine - Last Filed: 12/01/17 13:26> - Physical Exam Vital Signs Temp Pulse Resp BP Pulse Ox 99 F 109 H 22 H 136/98 H 96 12/01/17 09:00 12/01/17 12:00 12/01/17 12:00 12/01/17 12:00 12/01/17 12:00 Oxygen Flow Rate (L/min) 2 Oxygen Delivery Method Nasal Cannula Weight: 169.2 kg Body Mass Index (BMI) 58.3 Intake and Output for Last 24 Hours 11/29/17 11/30/17 12/01/17 23:59 23:59 23:59 Intake Total 2092.6 / 2092.6 4969 / 4969 Output Total 600 / 600 Balance 1492.6 / 1492.6 4969 / 4969 Laboratory Tests Past 24 Hrs 11/30/17 11/30/17 12/01/17 17:25 23:20 05:26 WBC 8.8 RBC 2.80 L Hgb 7.4 L 6.8 L 8.4 L Hct 25.5 L 23.3 L 28.4 L MCV 101.4 H MCH 30.0 MCHC 29.6 L RDW 21.2 H RDW Differential 73.7 H Plt Count 327 MPV 11.0 Differential Comment SCAN PT INR APTT Sodium Potassium Chloride Carbon Dioxide Anion Gap BUN Creatinine Estim Creat Clear Calc Est GFR (MDRD) Af Amer Est GFR (MDRD) Non-Af BUN/Creatinine Ratio Glucose Calcium Magnesium 12/01/17 12/01/17 05:26 07:43 WBC RBC Hgb Hct MCV MCH MCHC RDW RDW Differential Plt Count MPV Differential Comment PT 17.7 H INR 1.5 APTT 44.5 H Sodium 141 Potassium 4.2 Chloride 109 H Carbon Dioxide 20.0 L Anion Gap 12 BUN 29 H Creatinine 1.80 H Estim Creat Clear Calc 26.66 Est GFR (MDRD) Af Amer 35 L Est GFR (MDRD) Non-Af 29 L BUN/Creatinine Ratio 16.1 Glucose 135 H Calcium 9.0 Magnesium 2.4 POC Glucose 12/01/17 12/01/17 11/30/17 11:49 06:48 22:16 POC Glucose 126 H 132 H 126 H 11/30/17 17:03 POC Glucose 140 H Assessment/Plan This patient was seen in conjunction with ROSALIND Nolen. I have independently interviewed and examined the patient and reviewed pertinent historical, laboratory, and other data. Please refer to RADHA Nolenote for details of this patient's presentation, findings, and recommendations. I have reviewed ROSALIND Nolen note and concur with documented findings. In brief : Patient is a a 72year-old lady with past medical history is none for chronic A. fib on systemic anticoagulation with Coumadin who presented with black tarry stools as well as low hemoglobin. Coumadin was held on admission patient did receive vitamin K as well as FFP with consultation placed to general surgery. Patient had similar presentation in April [address] Hobbs findings included extensive diverticular disease to the sigmoid area and some patchy erythema in the right colon. Went into A. fib with RVR was on a regular nursing floor subsequently transferred to the progressive care unit for further management Physical Examination: GENERAL: cooperative HEENT: Clear conjunctiva, NECK; supple, normal thyroid, CHEST: Diminished to auscultation bilaterally, HEART: Irregular S1 S2, no audible murmurs ABDOMEN: soft, non-tender, normoactive bowel sounds, RECTAL: deferred ASSOCIATE PROFESSOR: Awake, no lateralizing signs. SKIN: No Rash Assessment: 1. Anemia secondary to acute on chronic blood loss from GI tract; plan is for patient undergo endoscopic evaluation on 12/01/2017 2. Paroxysmal A. fib presented with rapid ventricular response 3. Acute on chronic diastolic congestive heart failure possibly precipitated by #1 4. Diabetes mellitus type II: Controlled 5. Dyslipidemia-patient is on statin therapy, 6. Hypertension-blood pressure controlled, 7. Morbid obesity with BMI of 58.4 8. History of non-ST [place] 9. DVT prophylaxis: SCDs, and now patient was not placed on chemoprophylaxis in view of her active GI bleed Recommendations: 1. I have discussed the results of my overview and impressions with the patient 2. Options for management were reviewed Code Visit Inpatient E&M: [id number] Subs Hosp L3
--- NOTE | 2017-12-01 15:25 | PCM.OPRPT ---
Report of Operation Date of Procedure: 12/01/17 Pre-Operative Diagnosis: anemia, rule out GI bleed, rectal bleeding Post-Operative Diagnosis: no source of GI bleed with active bleeding noted - no blood in GI tract noted, diverticulosis, hemorrhoidal disease Surgery/Procedure Performed:: esophagogastroduodenoscopy and colonoscopy Description of Surgical Findings:: no ulcers/masses noted on EGD, no active bleeding lesions noted in colon - diverticulosis and hemorrhoids noted - but no site of bleeding Type of Anesthesia:: MAC Anesthesiologist: Peewee Akhtar Specimen's removed: none Estimated Blood Loss (mL): none Fluids Replaced: see anesthesia note Description of Procedure: After informed consent was given, the patient was brought to the endoscopy suite and placed in the upright sitting position. Appropriate time out protocol was followed. Appropriate cardiac, blood pressure, and pulse oximetry monitoring was placed. After stable vital signs were noted, the patient was given intravenous conscious sedation. The posterior pharynx was sprayed with lidocaine spray times two and a bite block was placed. The patient was then placed in the left lateral decubitis position. The upper endoscope was lubricated and inserted into the patients mouth and then carefully placed into the patients throat. The patient was asked to swallow and the endoscope was then advanced into the patients esophagus. The endoscope was further advanced down into the patients stomach, then past the pylorus, then past the duodenal bulb and then to the second portion of the duodenum. There were no lesions noted in the duodenum. The endoscope was then retracted back into the stomach. A retroflex view of the stomach revealed no evidence of any masses. No ulcers, no strictures, no suspicious lesions were noted. No blood was noted in the stomach. The endoscope was retracted into the esophagus, where any insufflated gas in the stomach was aspirated out. The esophagus was normal. The upper endoscope was removed intact. Next, the colonoscopy was done. The colonoscope was lubricated and carefully inserted into the patients anus. It was then advanced into the rectum, then into the sigmoid colon, then into the left descending colon, past the splenic flexure, into the transverse colon, past the hepatic flexure, then down into the right descending colon and into the cecum. The cecum was identified by: confluence of the tenae coli, identification of the ileocecal valve and appendiceal orifice, and external pressure with indentation. At this point, the colonoscope was slowly retracted back and the entire colonic mucosa was examined. There was not blood noted in the entire colon. There was no evidence of extrinsic compression and no inflammatory changes were noted. The colon cleansing preparation was adequate. No intraluminal obstructing lesions, no strictures, and no ulcers were noted. Retroflex view in the rectum revealed no lesions in the rectal vault except for hemorrhoidal changes - no bleeding was noted. The colonoscope was removed intact. Patient tolerated procedures well. - Complications none noted - Admit VTE Documentation VTE Present on Admission: Yes - patient on coumadin
--- NOTE | 2017-12-01 15:28 | OP.PCM_ITS ---
Report of Operation Date of Procedure: 12/01/17 Pre-Operative Diagnosis: anemia, rule out GI bleed, rectal bleeding Post-Operative Diagnosis: no source of GI bleed with active bleeding noted - no blood in GI tract noted, diverticulosis, hemorrhoidal disease Surgery/Procedure Performed:: esophagogastroduodenoscopy and colonoscopy Description of Surgical Findings:: no ulcers/masses noted on EGD, no active bleeding lesions noted in colon - diverticulosis and hemorrhoids noted - but no site of bleeding Type of Anesthesia:: MAC Anesthesiologist: Peewee Akhtar Specimen's removed: none Estimated Blood Loss (mL): none Fluids Replaced: see anesthesia note Description of Procedure: After informed consent was given, the patient was brought to the endoscopy suite and placed in the upright sitting position. Appropriate time out protocol was followed. Appropriate cardiac, blood pressure, and pulse oximetry monitoring was placed. After stable vital signs were noted, the patient was given intravenous conscious sedation. The posterior pharynx was sprayed with lidocaine spray times two and a bite block was placed. The patient was then placed in the left lateral decubitis position. The upper endoscope was lubricated and inserted into the patient?s mouth and then carefully placed into the patient?s throat. The patient was asked to swallow and the endoscope was then advanced into the patient?s esophagus. The endoscope was further advanced down into the patient?s stomach, then past the pylorus, then past the duodenal bulb and then to the second portion of the duodenum. There were no lesions noted in the duodenum. The endoscope was then retracted back into the stomach. A retroflex view of the stomach revealed no evidence of any masses. No ulcers , no strictures, no suspicious lesions were noted. No blood was noted in the stomach. The endoscope was retracted into the esophagus, where any insufflated gas in the stomach was aspirated out. The esophagus was normal. The upper endoscope was removed intact. Next, the colonoscopy was done. The colonoscope was lubricated and carefully inserted into the patient?s anus. It was then advanced into the rectum, then into the sigmoid colon, then into the left descending colon, past the splenic flexure, into the transverse colon, past the hepatic flexure, then down into the right descending colon and into the cecum. The cecum was identified by: confluence of the tenae coli, identification of the ileocecal valve and appendiceal orifice, and external pressure with indentation. At this point, the colonoscope was slowly retracted back and the entire colonic mucosa was examined. There was not blood noted in the entire colon. There was no evidence of extrinsic compression and no inflammatory changes were noted. The colon cleansing preparation was adequate. No intraluminal obstructing lesions, no strictures, and no ulcers were noted. Retroflex view in the rectum revealed no lesions in the rectal vault except for hemorrhoidal changes - no bleeding was noted. The colonoscope was removed intact. Patient tolerated procedures well. - Complications none noted - Admit VTE Documentation VTE Present on Admission: Yes - patient on coumadin
[2017-12-01] MEDS: Ferrous Sulfate 325 MG Tablet PO (15:55)
--- NOTE | 2017-12-01 16:00 | NURSING ---
PATIENT DRINKING WATER WITHOUT DIFFICULTY AFTER EGD
[2017-12-01 16:15] LABS: Bedside Glucose 128 mg/dL (70-110)
--- NOTE | 2017-12-01 16:18 | SUR.PHASEI ---
1500--PT. FINISHED WITH COLONOSCOPY AND EGD. DR. CARRANZA HERE, AND MAINTAINING DRIPS AND FLUIDS. PT HAS NO COMPLAINTS OF ABDOMINAL PAIN, AND ABDOMEN SOFT. SEE ANESTHESIA NOTES. [id number]--NO COMPLAINTS OF ABDOMINAL PAIN,AND ABDOMEN SOFT. PT PASSING FLATUS [id number]--STILL NO COMPLAINTS OF ABDOMINAL PAIN, AND ABDOMEN SOFT. PT PASSING FLATUS. NO DYSPHAGIA, OR TROUBLE SWALLOWING. PT COUGHING AFTER EGD PROCEDURE. REPORT CALLED TO FLOOR, TO SIN ROYAL. JORDAN ROYAL
[2017-12-01] MEDS: Metoprolol Tartrate 100 MG Tablet PO ×2 (16:30→21:44)
[2017-12-01] MEDS: Pravastatin 80 MG Tablet PO (21:44)
[2017-12-01] MEDS: hydrALAZINE 25 MG Tablet PO (21:44)
[2017-12-01] MEDS: Pramipexole Di-HCl 0.125 MG Tablet PO (21:44)
[2017-12-01 23:35] LABS: Bedside Glucose 138 mg/dL (70-110)
[2017-12-02] VITALS (8 sets, daily range): BP systolic 121–143; BP diastolic 43–65; PULSE 66–86; RESP 16; TEMP 36.9–37.1; O2SAT 91–93
[2017-12-02] MEDS: hydrALAZINE 25 MG Tablet PO (06:39)
[2017-12-02] MEDS: SILDENAFIL CITRATE 20 MG TABLET PO (06:40)
[2017-12-02 06:46] LABS: Anion Gap 8 (5-15); BUN 26 mg/dL (7-18); BUN/Creat Ratio 14.3 RATIO (10-20); Calcium,Total 8.2 mg/dL (8.5-10.1); Chloride 114 mmol/L (98-107); Creatinine, Serum 1.82 mg/dL (0.55-1.02); EST Glomerular Filtration Rate 29 mL/min (>60); Est Glom Filt Rate - Afr Amer 35 mL/min (>60); Estimated Creatinine Clearance 26.37 ml/min; Glucose 94 mg/dL (74-106); Potassium 4.4 mmol/L (3.5-5.1); Sodium Level 143 mmol/L (136-145)
[2017-12-02 07:03] LABS: Hematocrit 26.7 % (37-47); Hemoglobin 7.9 g/dl (12.0-15.0); Mean Corp Hgb Conc 29.6 g/gl (32-36); Mean Corpuscular Hgb 29.9 pg (27.0-32.0); Mean Corpuscular Volume 101.1 fL (81-99); Mean Platelet Vol. 10.7 fl (6.2-12.0); Platelet Count 255 K/mm3 (150-450); RBC Distribution Width CV 21.6 % (11.6-14.6); Red Blood Count 2.64 M/mm3 (4.2-5.4); White Blood Count 6.5 K/mm3 (4.4-11.0)
[2017-12-02 07:04] LABS: Scan Indicated on CBC? Y/N YES- FLAGS NOTED
[2017-12-02 07:06] LABS: Bedside Glucose 117 mg/dL (70-110)
[2017-12-02] MEDS: Ipratropium/Albuterol Sulfate 3 ML AMPUL.NEB INHALATION (07:27)
[2017-12-02] MEDS: Ferrous Sulfate 325 MG Tablet PO (08:26)
[2017-12-02] MEDS: Metoprolol Tartrate 100 MG Tablet PO (09:56)
[2017-12-02] MEDS: Lisinopril 10 MG Tablet PO (09:56)
[2017-12-02] MEDS: Furosemide 20 MG Tablet PO (09:56)
[2017-12-02 11:36] LABS: Bedside Glucose 119 mg/dL (70-110)
--- NOTE | 2017-12-02 12:09 | PCM.DC ---
- Discharge Diagnoses Current Active Problems: Current Active and Chronic Problems (Last Reviewed 11/04/17 @ 12:55 by Shirley Mcpherson) CKD (chronic kidney disease), stage III (Chronic) Acute kidney injury (Acute) You will use the following diet at home:: Calorie/Carbohydrate Controlled (specify 1200, 1400, etc), Cardiac Discharge Activity: Return to Normal Activity Call your doctor if you observe: Shortness of breath, Dizziness, Fainting spells, Chest pain, - - Increase in blood per rectum Additional Instructions: Continue to monitor INR at home and report findings to PCP. Allergies/Adverse Reactions: Allergies No Known Allergies Allergy (Verified 11/30/17 01:15) Medications to take at Discharge Amoxicillin 2,000 mg PO X1 PRN 11/18/17 Ascorbic Acid [Vitamin C] 1,000 mg PO BID 11/18/17 Budesonide/Formoterol Fumarate [Symbicort 160-4.5 Mcg Inhaler] 2 puff IH BID 11/18/17 Calcium Citrate 500 mg PO TID 11/18/17 Cholecalciferol (Vitamin D3) [Vitamin D3] 4,000 unit PO DAILY 11/18/17 Febuxostat [Uloric] 80 mg PO DAILY 11/18/17 Furosemide [Lasix] 20 mg PO DAILY 11/18/17 Linagliptin [Tradjenta] 5 mg PO DAILY PRN 11/18/17 Lisinopril [Zestril] 10 mg PO DAILY 11/18/17 Magnesium Oxide [Magnesium] 250 mg PO BID 11/18/17 Metoprolol Tartrate [Lopressor (beta long)] 100 mg PO BID 11/18/17 Multivitamin [Daily Multiple Vitamin] 1 each PO DAILY 11/18/17 Pravastatin Sodium 80 mg PO QHS 11/18/17 Ropinirole HCl [Requip] 0.25 mg PO QHS 11/18/17 Sildenafil Citrate [Revatio] 20 mg PO TID 11/18/17 Ubidecarenone [Coenzyme Q-10] 100 mg PO DAILY 11/18/17 Warfarin [Coumadin] 5 mg PO DAILY 11/18/17 hydrALAZINE [Apresoline] 25 mg PO TID 11/18/17 Ferrous Sulfate 325 mg PO BID 11/29/17 Primary Care Physician: Jyothi Weber [Primary Care Provider] - Please follow up with your Primary Care Physician in: 1 Week Please Follow Up With: Halley Khan MD When: 2 Days, Please schedule prior to DC Please Follow Up With: Heron Hobbs MD When: 1-2 Weeks Please Follow Up With: Niraj Raymundo MD When: As scheduled Please Follow Up With: Natalia Mccurdy DO When: As scheduled Proposed Discharge Date: 12/02/17
--- NOTE | 2017-12-02 12:16 | DCINST_ITS ---
- Discharge Diagnoses Current Active Problems: Current Active and Chronic Problems (Last Reviewed 11/04/17 @ 12:55 by Shirley Mcpherson) CKD (chronic kidney disease), stage III (Chronic) Acute kidney injury (Acute) You will use the following diet at home:: Calorie/Carbohydrate Controlled ( specify 1200, 1400, etc), Cardiac Discharge Activity: Return to Normal Activity Call your doctor if you observe: Shortness of breath, Dizziness, Fainting spells , Chest pain, - - Increase in blood per rectum Additional Instructions: Continue to monitor INR at home and report findings to PCP. Allergies/Adverse Reactions: Allergies No Known Allergies Allergy (Verified 11/30/17 01:15) Medications to take at Discharge Amoxicillin 2,000 mg PO X1 PRN 11/18/17 Ascorbic Acid [Vitamin C] 1,000 mg PO BID 11/18/17 Budesonide/Formoterol Fumarate [Symbicort 160-4.5 Mcg Inhaler] 2 puff IH BID 10/06 Calcium Citrate 500 mg PO TID 11/18/17 Cholecalciferol (Vitamin D3) [Vitamin D3] 4,000 unit PO DAILY 11/18/17 Febuxostat [Uloric] 80 mg PO DAILY 11/18/17 Furosemide [Lasix] 20 mg PO DAILY 11/18/17 Linagliptin [Tradjenta] 5 mg PO DAILY PRN 11/18/17 Lisinopril [Zestril] 10 mg PO DAILY 11/18/17 Magnesium Oxide [Magnesium] 250 mg PO BID 11/18/17 Metoprolol Tartrate [Lopressor (beta long)] 100 mg PO BID 11/18/17 Multivitamin [Daily Multiple Vitamin] 1 each PO DAILY 11/18/17 Pravastatin Sodium 80 mg PO QHS 11/18/17 Ropinirole HCl [Requip] 0.25 mg PO QHS 11/18/17 Sildenafil Citrate [Revatio] 20 mg PO TID 11/18/17 Ubidecarenone [Coenzyme Q-10] 100 mg PO DAILY 11/18/17 Warfarin [Coumadin] 5 mg PO DAILY 11/18/17 hydrALAZINE [Apresoline] 25 mg PO TID 11/18/17 Ferrous Sulfate 325 mg PO BID 11/29/17 Primary Care Physician: Jyothi Weber [Primary Care Provider] - Please follow up with your Primary Care Physician in: 1 Week Please Follow Up With: Halley Khan MD When: 2 Days, Please schedule prior to DC Please Follow Up With: Heron Hobbs MD When: 1-2 Weeks Please Follow Up With: Niraj Raymundo MD When: As scheduled Please Follow Up With: Natalia Mccurdy DO When: As scheduled Proposed Discharge Date: 12/02/17
--- NOTE | 2017-12-02 12:17 | PCM.DC.SUM ---
<Billie Segovia - Last Filed: 12/02/17 12:32> Discharge Date and Diagnosis - Problem List Patient Problems: Active and Suspected Problems (Last Reviewed 11/04/17 @ 12:55 by Shirley Mcpherson) Anemia in chronic kidney disease (CKD) (Acute) GI bleed (Acute) Date of Admission: 11/29/17 Date of Discharge: 12/02/17 - Primary Discharge Diagnosis Active and Suspected Problems (Last Reviewed 11/04/17 @ 12:55 by Shirley Mcpherson) 1. Acute on chronic anemia secondary to acute on chronic GI blood loss with underlying iron deficiency anemia 2. Paroxysmal atrial fibrillation with RVR 3. Acute kidney injury on chronic kidney disease stage III 4. Acute on chronic diastolic CHF - Secondary Discharge Diagnosis Chronic Problems (Last Reviewed 11/04/17 @ 12:55 by Shirley Mcpherson) CKD (chronic kidney disease), stage III (Chronic) Atherosclerotic heart disease of [place] coro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 pectoris (Chronic) [facility]: 07/30/2006; 04/10/17 Chronic atrial fibrillation (Chronic) Hyperkalemia (Chronic) HLD (hyperlipidemia) (Chronic) HTN (hypertension) (Chronic) Non-ST elevation (NSTEMI) myocardial infarction (Chronic) Nonrheumatic aortic (valve) stenosis (Chronic) Nonrheumatic mitral (valve) insufficiency (Chronic) Nonrheumatic tricuspid (valve) insufficiency (Chronic) Other secondary pulmonary hypertension (Chronic) SOB (shortness of breath) (Chronic) NSTEMI (non-ST elevated myocardial infarction) (Chronic) Chronic atrial fibrillation (Chronic) Hypertension (Chronic) Hyperlipidemia (Chronic) Type 2 diabetes mellitus (Chronic) CAD (coronary artery disease) (Chronic) Anemia (Chronic) CRF (chronic renal failure) (Chronic) Iron deficiency anemia (Chronic) Diverticular disease (Chronic) Morbid obesity (Chronic) Hospital Course and Treatment Imaging Results: Diagnostic Data Chest X-Ray 11/30/17 05:55 IMPRESSION: Left lower lung infiltrate or edema and pleural effusion. Cardiac enlargement. Electronically Signed: Amador Guo MD at 8:20 EDT , Service support , Leslie Peres- Oncology Dr. Birmingham- Surgery Operations: None Procedures: Colonoscopy Summary of Care Provided: Patient is a 72-year-old female admitted 11/29/17 due to weakness, lightheadedness. She has a past medical history of iron deficiency anemia, chronic kidney disease stage III, type 2 diabetes mellitus, hypertension, hyperlipidemia, obstructive sleep apnea, morbid obesity, bilateral lower extremity lymphedema, chronic atrial fibrillation on Coumadin therapy, history of NSTEMI, pulmonary hypertension, history of GI bleed. Patient had a C scope December [address] Hobbs due to GI bleed which showed extensive diverticular disease to the sigmoid area and some patchy erythema in the right colon. Patient's Coumadin was discontinued at that time and later restarted. 1. Acute on chronic anemia secondary to acute on chronic GI blood loss-underlying history of iron deficiency anemia. Dr. Birmingham consulted. Coumadin held during admission. Patient received 3 units PRBC for hemoglobin 6.8. She received dose of vitamin K in the emergency room as well. Patient underwent colonoscopy with Dr. Birmingham which showed no source of GI bleed, no blood in GI tract. Diverticulosis and hemorrhoidal disease was noted. Patient was placed back on coumdin. Continue iron supplementation. Patient will continue outpatient follow-up with Dr. Hobbs and Dr. Valdez. H&H in 1 and 2 weeks with further management by hemoncology and PCP. 2. Paroxysmal A. fib with RVR-heart rate controlled. Placed on Cardizem drip during n.p.o. status. Home metoprolol regimen resumed and heart rate controlled. Patient will continue Coumadin at discharge. 3. Acute on chronic diastolic CHF-suspect secondary to #1. Echocardiogram from 2014 showed an EF of 55%, mild to moderate mitral valve insufficiency, pulmonary artery systolic pressure 55 mmHg. Chest x-ray showed left lower lung infiltrate/edema. BNP 217. Patient received IV Lasix ?1. 4. Acute kidney injury on chronic kidney disease stage III-follows with Dr. Mccurdy. Continue outpatient follow-up. Creat stable. 5. Type 2 diabetes mellitus-continue home oral regimen. 6. Hyperlipidemia-continue statin. 7. Hypertension-stable, continue current regimen. 8. CAD/History of NSTEMI-normal stress August 2016. Cath in 2005 with no significant stenosis. 9. Obstructive sleep apnea-continue CPAP 10. Chronic bilateral lower extremity lymphedema-Camron wrap bilateral lower extremities. 11. Morbid obesity-BMI 58.4. Encourage diet and lifestyle modifications. General: Alert, Oriented x3, Cooperative HEENT: Atraumatic, PERRLA, EOMI, Normocephalic Oral: Dry Mucosa Neck: Supple, No JVD, Negative Carotid Bruits Lungs: Clear to auscultation, Diminished Cardiovascular: Tachycardic, - - A.fib Abdomen: Bowel Sounds Present, Soft, Non Tender, Non-Distended, Obese Extremities: No clubbing, No cyanosis, Edema - BLLE Skin: No rashes, No breakdown Musculoskeletal: No Tenderness to Palpation of Joints or Extremities Neurological: Cranial nerves II-XII grossly intact, Neuro grossly intact Psych/Mental Status: Normal Affect, Appropriate Patient seen and examined prior to discharge. Physical assessment as noted above. Patient denies dizziness, lightheadedness. Denies chest pain, shortness of breath. Stable for discharge home with close follow-up with hematology and other recognitions as noted above. This patient was seen by ROSALIND Nolen under the supervision of Dr. Vera. Discharge Diet: Low fat/ Low Cholesterol, Carb Control Diet Discharge Activity: Return to Normal Activity Call your doctor if you observe: Shortness of breath, Dizziness, Fainting spells, Chest pain, - - Increase in blood per rectum Home Medications: Medications to take at Discharge Amoxicillin 2,000 mg PO X1 PRN 11/18/17 Ascorbic Acid [Vitamin C] 1,000 mg PO BID 11/18/17 Budesonide/Formoterol Fumarate [Symbicort 160-4.5 Mcg Inhaler] 2 puff IH BID 11/18/17 Calcium Citrate 500 mg PO TID 11/18/17 Cholecalciferol (Vitamin D3) [Vitamin D3] 4,000 unit PO DAILY 11/18/17 Febuxostat [Uloric] 80 mg PO DAILY 11/18/17 Furosemide [Lasix] 20 mg PO DAILY 11/18/17 Linagliptin [Tradjenta] 5 mg PO DAILY PRN 11/18/17 Lisinopril [Zestril] 10 mg PO DAILY 11/18/17 Magnesium Oxide [Magnesium] 250 mg PO BID 11/18/17 Metoprolol Tartrate [Lopressor (beta long)] 100 mg PO BID 11/18/17 Multivitamin [Daily Multiple Vitamin] 1 each PO DAILY 11/18/17 Pravastatin Sodium 80 mg PO QHS 11/18/17 Ropinirole HCl [Requip] 0.25 mg PO QHS 11/18/17 Sildenafil Citrate [Revatio] 20 mg PO TID 11/18/17 Ubidecarenone [Coenzyme Q-10] 100 mg PO DAILY 11/18/17 Warfarin [Coumadin] 5 mg PO DAILY 11/18/17 hydrALAZINE [Apresoline] 25 mg PO TID 11/18/17 Ferrous Sulfate 325 mg PO BID 11/29/17 Primary Care Physician: Jyothi Weber [Primary Care Provider] - Please follow up with your Primary Care Physician in: 1 Week Please Follow Up With: Halley Khan MD When: 2 Days, Please schedule prior to DC Please Follow Up With: Heron Hobbs MD When: 1-2 Weeks Please Follow Up With: Niraj Raymundo MD When: As scheduled Please Follow Up With: Natalia Mccurdy DO When: As scheduled Disposition: Home Minutes spent on discharge:: 35 Patient Condition:: Stable Medical Necessity - Tobacco Use Smoking Status: Never smoker Tobacco Use: Non-smoker Meaningful Use Info Meaningful Use Diagnoses (Choose all that apply): CHF - CHF CAMRON/ARB ordered at discharge?: Yes Documented LVEF (%): 55 <Zeus Vera - Last Filed: 12/02/17 14:14> Discharge Date and Diagnosis - Secondary Discharge Diagnosis Chronic Problems (Last Reviewed 11/04/17 @ 12:55 by Shirley Mcpherson) CKD (chronic kidney disease), stage III (Chronic) Atherosclerotic heart disease of [place] coro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 pectoris (Chronic) [facility]: 07/30/2006; 04/10/17 Chronic atrial fibrillation (Chronic) Hyperkalemia (Chronic) HLD (hyperlipidemia) (Chronic) HTN (hypertension) (Chronic) Non-ST elevation (NSTEMI) myocardial infarction (Chronic) Nonrheumatic aortic (valve) stenosis (Chronic) Nonrheumatic mitral (valve) insufficiency (Chronic) Nonrheumatic tricuspid (valve) insufficiency (Chronic) Other secondary pulmonary hypertension (Chronic) SOB (shortness of breath) (Chronic) NSTEMI (non-ST elevated myocardial infarction) (Chronic) Chronic atrial fibrillation (Chronic) Hypertension (Chronic) Hyperlipidemia (Chronic) Type 2 diabetes mellitus (Chronic) CAD (coronary artery disease) (Chronic) Anemia (Chronic) CRF (chronic renal failure) (Chronic) Iron deficiency anemia (Chronic) Diverticular disease (Chronic) Morbid obesity (Chronic) Hospital Course and Treatment Operations: None Procedures: Colonoscopy, - - EGD Summary of Care Provided: Patient seen and examined independently. I agree with the above note by the [employer]CHITECT The patient is a 72 year old F presents with weakness. Patient was found to be anemic. Patient did drop as low as 6.8. Patient did receive a total of 3 units of packed red blood cells. Patient underwent an EGD and colonoscopy that were unremarkable. Patient will resumed back on her Coumadin. Patient's INR upon arrival was 2.4. Patient will have serial blood counts in the coming weeks. Long-term concern is if patient may need to be taken off of Coumadin until this anemia issue has been further qualified or has remained stable. But in the meantime, patient will continue with Coumadin. Patient is on Coumadin for atrial fibrillation. [] Discharge Diet: Low fat/ Low Cholesterol, Carb Control Diet Discharge Activity: Return to Normal Activity Call your doctor if you observe: Shortness of breath, Dizziness, Fainting spells, Chest pain, - Disposition: Home Minutes spent on discharge:: 35 Patient Condition:: Stable Medical Necessity - Tobacco Use Tobacco Use: Non-smoker Meaningful Use Info Meaningful Use Diagnoses (Choose all that apply): CHF - CHF CAMRON/ARB ordered at discharge?: Yes Documented LVEF (%): 55 Code Visit Inpatient E&M: 86837 Disch Hosp
--- NOTE | 2017-12-02 12:30 | DS.PCM_ITS ---
<Billie Segovia - Last Filed: 12/02/17 12:32> Discharge Date and Diagnosis - Problem List Patient Problems: Active and Suspected Problems (Last Reviewed 11/04/17 @ 12:55 by Shirley Mcpherson) Anemia in chronic kidney disease (CKD) (Acute) GI bleed (Acute) Date of Admission: 11/29/17 Date of Discharge: 12/02/17 - Primary Discharge Diagnosis Active and Suspected Problems (Last Reviewed 11/04/17 @ 12:55 by Shirley Mcpherson) 1. Acute on chronic anemia secondary to acute on chronic GI blood loss with underlying iron deficiency anemia 2. Paroxysmal atrial fibrillation with RVR 3. Acute kidney injury on chronic kidney disease stage III 4. Acute on chronic diastolic CHF - Secondary Discharge Diagnosis Chronic Problems (Last Reviewed 11/04/17 @ 12:55 by Shirley Mcpherson) CKD (chronic kidney disease), stage III (Chronic) Atherosclerotic heart disease of [place] coro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 pectoris (Chronic) [facility]: 07/30/2006; 04/10/17 Chronic atrial fibrillation (Chronic) Hyperkalemia (Chronic) HLD (hyperlipidemia) (Chronic) HTN (hypertension) (Chronic) Non-ST elevation (NSTEMI) myocardial infarction (Chronic) Nonrheumatic aortic (valve) stenosis (Chronic) Nonrheumatic mitral (valve) insufficiency (Chronic) Nonrheumatic tricuspid (valve) insufficiency (Chronic) Other secondary pulmonary hypertension (Chronic) SOB (shortness of breath) (Chronic) NSTEMI (non-ST elevated myocardial infarction) (Chronic) Chronic atrial fibrillation (Chronic) Hypertension (Chronic) Hyperlipidemia (Chronic) Type 2 diabetes mellitus (Chronic) CAD (coronary artery disease) (Chronic) Anemia (Chronic) CRF (chronic renal failure) (Chronic) Iron deficiency anemia (Chronic) Diverticular disease (Chronic) Morbid obesity (Chronic) Hospital Course and Treatment Imaging Results: Diagnostic Data Chest X-Ray 11/30/17 05:55 IMPRESSION: Left lower lung infiltrate or edema and pleural effusion. Cardiac enlargement. Electronically Signed: Amador Guo MD at 8:20 EDT , Service support , Leslie Peres- Oncology Dr. Birmingham- Surgery Operations: None Procedures: Colonoscopy Summary of Care Provided: Patient is a 72-year-old female admitted 11/29/17 due to weakness, lightheadedness. She has a past medical history of iron deficiency anemia, chronic kidney disease stage III, type 2 diabetes mellitus, hypertension, hyperlipidemia, obstructive sleep apnea, morbid obesity, bilateral lower extremity lymphedema, chronic atrial fibrillation on Coumadin therapy, history of NSTEMI, pulmonary hypertension, history of GI bleed. Patient had a C scope December [address] Hobbs due to GI bleed which showed extensive diverticular disease to the sigmoid area and some patchy erythema in the right colon. Patient's Coumadin was discontinued at that time and later restarted. 1. Acute on chronic anemia secondary to acute on chronic GI blood loss- underlying history of iron deficiency anemia. Dr. Birmingham consulted. Coumadin held during admission. Patient received 3 units PRBC for hemoglobin 6.8. She received dose of vitamin K in the emergency room as well. Patient underwent colonoscopy with Dr. Birmingham which showed no source of GI bleed, no blood in GI tract. Diverticulosis and hemorrhoidal disease was noted. Patient was placed back on coumdin. Continue iron supplementation. Patient will continue outpatient follow-up with Dr. Hobbs and Dr. Valdez. H&H in 1 and 2 weeks with further management by hemoncology and PCP. 2. Paroxysmal A. fib with RVR-heart rate controlled. Placed on Cardizem drip during n.p.o. status. Home metoprolol regimen resumed and heart rate controlled. Patient will continue Coumadin at discharge. 3. Acute on chronic diastolic CHF-suspect secondary to #1. Echocardiogram from 2014 showed an EF of 55%, mild to moderate mitral valve insufficiency, pulmonary artery systolic pressure 55 mmHg. Chest x-ray showed left lower lung infiltrate/edema. BNP 217. Patient received IV Lasix ?1. 4. Acute kidney injury on chronic kidney disease stage III-follows with Dr. Mccurdy. Continue outpatient follow-up. Creat stable. 5. Type 2 diabetes mellitus-continue home oral regimen. 6. Hyperlipidemia-continue statin. 7. Hypertension-stable, continue current regimen. 8. CAD/History of NSTEMI-normal stress August 2016. Cath in 2005 with no significant stenosis. 9. Obstructive sleep apnea-continue CPAP 10. Chronic bilateral lower extremity lymphedema-Camron wrap bilateral lower extremities. 11. Morbid obesity-BMI 58.4. Encourage diet and lifestyle modifications. General: Alert, Oriented x3, Cooperative HEENT: Atraumatic, PERRLA, EOMI, Normocephalic Oral: Dry Mucosa Neck: Supple, No JVD, Negative Carotid Bruits Lungs: Clear to auscultation, Diminished Cardiovascular: Tachycardic, - - A.fib Abdomen: Bowel Sounds Present, Soft, Non Tender, Non-Distended, Obese Extremities: No clubbing, No cyanosis, Edema - BLLE Skin: No rashes, No breakdown Musculoskeletal: No Tenderness to Palpation of Joints or Extremities Neurological: Cranial nerves II-XII grossly intact, Neuro grossly intact Psych/Mental Status: Normal Affect, Appropriate Patient seen and examined prior to discharge. Physical assessment as noted above. Patient denies dizziness, lightheadedness. Denies chest pain, shortness of breath. Stable for discharge home with close follow-up with hematology and other recognitions as noted above. This patient was seen by ROSALIND Nolen under the supervision of Dr. Vera. Discharge Diet: Low fat/ Low Cholesterol, Carb Control Diet Discharge Activity: Return to Normal Activity Call your doctor if you observe: Shortness of breath, Dizziness, Fainting spells , Chest pain, - - Increase in blood per rectum Home Medications: Medications to take at Discharge Amoxicillin 2,000 mg PO X1 PRN 11/18/17 Ascorbic Acid [Vitamin C] 1,000 mg PO BID 11/18/17 Budesonide/Formoterol Fumarate [Symbicort 160-4.5 Mcg Inhaler] 2 puff IH BID 10/06 Calcium Citrate 500 mg PO TID 11/18/17 Cholecalciferol (Vitamin D3) [Vitamin D3] 4,000 unit PO DAILY 11/18/17 Febuxostat [Uloric] 80 mg PO DAILY 11/18/17 Furosemide [Lasix] 20 mg PO DAILY 11/18/17 Linagliptin [Tradjenta] 5 mg PO DAILY PRN 11/18/17 Lisinopril [Zestril] 10 mg PO DAILY 11/18/17 Magnesium Oxide [Magnesium] 250 mg PO BID 11/18/17 Metoprolol Tartrate [Lopressor (beta long)] 100 mg PO BID 11/18/17 Multivitamin [Daily Multiple Vitamin] 1 each PO DAILY 11/18/17 Pravastatin Sodium 80 mg PO QHS 11/18/17 Ropinirole HCl [Requip] 0.25 mg PO QHS 11/18/17 Sildenafil Citrate [Revatio] 20 mg PO TID 11/18/17 Ubidecarenone [Coenzyme Q-10] 100 mg PO DAILY 11/18/17 Warfarin [Coumadin] 5 mg PO DAILY 11/18/17 hydrALAZINE [Apresoline] 25 mg PO TID 11/18/17 Ferrous Sulfate 325 mg PO BID 11/29/17 Primary Care Physician: Jyothi Weber [Primary Care Provider] - Please follow up with your Primary Care Physician in: 1 Week Please Follow Up With: Halley Khan MD When: 2 Days, Please schedule prior to DC Please Follow Up With: Heron Hobbs MD When: 1-2 Weeks Please Follow Up With: Niraj Raymudno MD When: As scheduled Please Follow Up With: Natalia Mccurdy DO When: As scheduled Disposition: Home Minutes spent on discharge:: 35 Patient Condition:: Stable Medical Necessity - Tobacco Use Smoking Status: Never smoker Tobacco Use: Non-smoker Meaningful Use Info Meaningful Use Diagnoses (Choose all that apply): CHF - CHF CAMRON/ARB ordered at discharge?: Yes Documented LVEF (%): 55 <Zeus Vera - Last Filed: 12/02/17 14:14> Discharge Date and Diagnosis - Secondary Discharge Diagnosis Chronic Problems (Last Reviewed 11/04/17 @ 12:55 by Shirley Mcpherson) CKD (chronic kidney disease), stage III (Chronic) Atherosclerotic heart disease of [place] coro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 pectoris (Chronic) [facility]: 07/30/2006; 04/10/17 Chronic atrial fibrillation (Chronic) Hyperkalemia (Chronic) HLD (hyperlipidemia) (Chronic) HTN (hypertension) (Chronic) Non-ST elevation (NSTEMI) myocardial infarction (Chronic) Nonrheumatic aortic (valve) stenosis (Chronic) Nonrheumatic mitral (valve) insufficiency (Chronic) Nonrheumatic tricuspid (valve) insufficiency (Chronic) Other secondary pulmonary hypertension (Chronic) SOB (shortness of breath) (Chronic) NSTEMI (non-ST elevated myocardial infarction) (Chronic) Chronic atrial fibrillation (Chronic) Hypertension (Chronic) Hyperlipidemia (Chronic) Type 2 diabetes mellitus (Chronic) CAD (coronary artery disease) (Chronic) Anemia (Chronic) CRF (chronic renal failure) (Chronic) Iron deficiency anemia (Chronic) Diverticular disease (Chronic) Morbid obesity (Chronic) Hospital Course and Treatment Operations: None Procedures: Colonoscopy, - - EGD Summary of Care Provided: Patient seen and examined independently. I agree with the above note by the PARTS PULLER The patient is a 72 year old F presents with weakness. Patient was found to be anemic. Patient did drop as low as 6.8. Patient did receive a total of 3 units of packed red blood cells. Patient underwent an EGD and colonoscopy that were unremarkable. Patient will resumed back on her Coumadin. Patient's INR upon arrival was 2.4. Patient will have serial blood counts in the coming weeks. Long-term concern is if patient may need to be taken off of Coumadin until this anemia issue has been further qualified or has remained stable. But in the meantime, patient will continue with Coumadin. Patient is on Coumadin for atrial fibrillation. [] Discharge Diet: Low fat/ Low Cholesterol, Carb Control Diet Discharge Activity: Return to Normal Activity Call your doctor if you observe: Shortness of breath, Dizziness, Fainting spells , Chest pain, - Disposition: Home Minutes spent on discharge:: 35 Patient Condition:: Stable Medical Necessity - Tobacco Use Tobacco Use: Non-smoker Meaningful Use Info Meaningful Use Diagnoses (Choose all that apply): CHF - CHF CAMRON/ARB ordered at discharge?: Yes Documented LVEF (%): 55 Code Visit Inpatient E&M: 56728 Disch Hosp
--- NOTE | 2017-12-02 13:06 | ONC.PN.INPT ---
- Problem List (1) Iron deficiency anemia Status: Chronic Qualifiers: Iron deficiency anemia type: chronic blood loss Qualified Code(s): D50.0 - Iron deficiency anemia secondary to blood loss (chronic) (2) Anemia in chronic kidney disease (CKD) Status: Acute Qualifiers: Chronic kidney disease stage: stage 3 (moderate) Qualified Code(s): N18.3 - Chronic kidney disease, stage 3 (moderate); D63.1 - Anemia in chronic kidney disease Subjective Date of Service:: 12/02/17 Anemia, acute GI bleed Patient is a 72-year-old female with a past medical history notable for morbid obesity, diabetes, chronic renal failure, hypertension, chronic atrial fibrillation on long-term anticoagulation and chronic GI blood loss attributed to diverticular disease (most recent colonoscopy was in 2017 under the care of Dr. Hobbs. Findings of which were positive for extensive diverticular disease - biopsy of right colon was negative - (concern for ischemic colitis). There had been occasions when her Coumadin anticoagulation had to be held due to increasing GI blood loss despite the fact that she is at an increased risk for cerebrovascular events from chronic atrial fibrillation Receives Venofer intermittently for management of chronic, recurrent anemia attributable to iron deficiency r/t chronic GI blood loss. Found to have Hgb 7.1 as an outpatient 11/29/17 and subsequently presented to [facility] ED with c/o hematochezia. Stool Guaiac positive. Coumadin held, given PO vitamin K. Given 3 units of PRBCs. Underwent EGD and colonoscopy yesterday under the care of Dr. Birmingham. No source of bleeding was identified. Patient reports she is feeling much better in terms of energy levels and verbalizes she is eager to home. Continues to experience loose stools this morning she attributes to colonoscopy prep however last episode of maggie blood in stool was Saturday approx noon. Past Medical History: Chronic Problems (Last Reviewed 11/04/17 @ 12:55 by Shirley Mcpherson) CKD (chronic kidney disease), stage III (Chronic) Atherosclerotic heart disease of [place] coro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 pectoris (Chronic) C: 07/30/2006; 04/10/17 Chronic atrial fibrillation (Chronic) Hyperkalemia (Chronic) HLD (hyperlipidemia) (Chronic) HTN (hypertension) (Chronic) Non-ST elevation (NSTEMI) myocardial infarction (Chronic) Nonrheumatic aortic (valve) stenosis (Chronic) Nonrheumatic mitral (valve) insufficiency (Chronic) Nonrheumatic tricuspid (valve) insufficiency (Chronic) Other secondary pulmonary hypertension (Chronic) SOB (shortness of breath) (Chronic) NSTEMI (non-ST elevated myocardial infarction) (Chronic) Chronic atrial fibrillation (Chronic) Hypertension (Chronic) Hyperlipidemia (Chronic) Type 2 diabetes mellitus (Chronic) CAD (coronary artery disease) (Chronic) Anemia (Chronic) CRF (chronic renal failure) (Chronic) Iron deficiency anemia (Chronic) Diverticular disease (Chronic) Morbid obesity (Chronic) Past Medical History - Most Recent Inpatient Visit Past Medical History Start: 11/30/17 00:37 Text: Status: Complete Freq: ONCE Protocol: Document 11/30/17 00:37 AMS (Rec: 11/30/17 00:42 AMS [id number]) BMI Required to complete PMH What is Patient's BMI 58.4 Past Medical History Unable History Recalled No Query Text:Pt Unable/Family Not Present Neurologic Medical History Hx Stroke/TIA No Hx Dementia/Alzheimer's No Hx Parkinson's Disease No Hx Seizures No Hx Multiple Sclerosis No Hx Migraines No Cardiac Medical History VTE Present on Admission No Hx of Deep Vein Thrombosis/VTE/PE No Hx Hypertension Yes Hx Chest Pain/Angina No Hx Heart Attack Yes: 11/2016 Hx Cardiac Surgery/Stents/Etc. No Hx Heart Failure No Hx Pacemaker/AICD No Hx Irregular Heartbeat and/or Afib Yes Hx Anticoagulant Therapy Yes: coumadin Query Text:(Coumadin, Aspirin, Plavix, Xarelto, etc.) Hx Pain in Legs when Walking/Leg Cramps No Respiratory Medical History Hx COPD No Hx Emphysema No Hx Smoking No Smoking Status Never smoker Tobacco Use Non-smoker Hx Tobacco Use in last 12 months No Hx Sleep Apnea Yes: cpap CPAP Yes BIPAP No STOP Results Positive GI Medical History Hx Ulcer No Hx Hepatitis No Hx Cirrhosis No Hx GI Bleed No Hx Unplanned Weight Loss No Genitourinary Medical History Indwelling Catheter in Place on Arrival/ No Admission Hx Renal Disease Yes: low renal function Hx Dialysis No Musculoskeletal History Hx Arthritis No Hx Rheumatoid Arthritis No Endocrine Medical History Hx Diabetes Yes Hx Thyroid Disease No Hematologic Medical History Hx of Blood Transfusion Yes Hx of Transfusion in last 3 Months No Ever experience any problems with No transfusion(s)? Hx of Preganancy in last 3 Months No Nurse Filling Out Transfusion & ASELF Questions: Date: 11/30/17 Time: 00:41 Psycho/Social Medical History Hx Depression No Hx Anxiety No Hx Behavior Disorder No Hx Alcohol Use No Hx Substance Use No Other Medical History Hx Blood Disorders No Hx Anemia Yes Hx Cancer No Hx Drug Resistant Organism No Wound/Pressure Injury Present on Arrival No /Admission Query Text:If yes, chart assessment in Shift/Clinical Findings Central Line/PICC/VAD Present on Arrival No /Admission Antibiotics within last 7 days? No Methicillin Resistant Staphylococcus aureus Screening Active MRSA No Risk for Readmission Number of Risk Factors 4 At Risk for Readmission Patient is At Risk For Readmission Patient is eligible for Call Back Y Past Medical History (Last Reviewed 11/04/17 @ 12:55 by Shirley Mcpherson) Atherosclerotic heart disease of [place] coro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 pectoris (Chronic) Chronic atrial fibrillation (Chronic) GI bleed (Acute) Hyperkalemia (Chronic) HLD (hyperlipidemia) (Chronic) HTN (hypertension) (Chronic) Non-ST elevation (NSTEMI) myocardial infarction (Chronic) Nonrheumatic aortic (valve) stenosis (Chronic) Nonrheumatic mitral (valve) insufficiency (Chronic) Nonrheumatic tricuspid (valve) insufficiency (Chronic) Other secondary pulmonary hypertension (Chronic) SOB (shortness of breath) (Chronic) Anemia (Acute) Arthritis (Acute) Bloody stool (Acute) Diabetes (Acute) Diverticulitis (Acute) Fatigue (Acute) Heart attack (Acute) Heart disease (Acute) History of GI bleed (Acute) History of blood transfusion (Acute) History of pneumonia (Acute) Kidney disease (Acute) Knee pain (Acute) Liver disease (Acute) Obesity (Acute) Osteopenia (Acute) Pulmonary hypertension (Acute) Sepsis (Acute) Sepsis secondary to UTI (Acute) Past Surgical History (Last Reviewed 11/04/17 @ 12:55 by Shirley Mcpherson) History of appendectomy (Acute) History of hysterectomy (Acute) Status post right foot surgery (Acute) History of left heart catheterization (LHC) (Resolved) Maternal Family History: Family History (Last Reviewed 11/04/17 @ 12:56 by Shirley Mcpherson) Mother Uterine cancer Hypertension Father Heart disease Diabetes CAD (coronary artery disease) Hypertension Family History: - - Mother with a history of hypertension, uterine cancer. Paternal Family History: Family History (Last Reviewed 11/04/17 @ 12:56 by Shirley Mcpherson) Mother Uterine cancer Hypertension Father Heart disease Diabetes CAD (coronary artery disease) Hypertension Family History: - - Father with a history of coronary artery disease, diabetes, heart disease, hypertension. - Social History Lives: Spouse/ Significant Other Smoking Status: Never smoker Tobacco Use: Non-smoker Alcohol: None Drugs: None Review of Systems Constitutional:: Reports: Fatigue - Improved. Denies: Fever, Sweats, Weight loss, Appetite change, Chills Cardiovascular:: Reports: Dyspnea on exertion - Improved. Denies: Chest pain, Palpitations, Orthopnea, PND Respiratory: Reports: Sputum production. Denies: Cough, Hemoptysis, Wheezing Gastrointestinal:: Reports: Diarrhea. Denies: Abdominal pain, Nausea, Vomiting, Constipation, Melena, Hematochezia, Gas/bloating, Reflux Genitourinary: Reports: Incontinence. Denies: Dysuria, Hematuria, Urinary frequency, Flank pain Musculoskeletal:: Reports: Joint stiffness - Knees bilateral Skin: Denies: Rash, Skin Changes, Wounds Neurological:: Denies: Headache, Dizziness, Numbness, Tingling, Visual changes, Tinnitus, Hearing loss Psychiatric: Denies: Anxiety, Depression, Homicidal Ideations, Suicidal Ideations Vital Signs Height 5 ft 7 in Weight: 373 lb 0.354 oz Weight in Pounds 373.0 lbs Pulse Ox 93 Temperature 98.4 F Pulse Rate 66 Respiratory Rate 16 Blood Pressure [BP] 144/85 Blood Pressure 143/65 Blood Pressure Position [BP] Semi-Fowlers Blood Pressure Position Semi-Fowlers - Physical Exam General: Alert, Oriented x3 HEENT: Atraumatic, Normocephalic Oropharynx:: Negative for: Dry mucosa, Ulcerated lesions Neck:: Supple, Trachea midline. Negative for: JVD, bilateral Cardiac:: Murmur. Negative for: Regular rhythm Lungs: Normal air movement, Wheezes - Faint expiratory throughout, Excusion symmetrical. Negative for: Rhonchi, Increased respiratory effort Abdomen:: Bowel sounds x 4, Soft, Non-tender, Non-distended. Negative for: Hepatosplenomegaly - Difficult to discern due to large body habitus Extremities:: Edema - Bilateral lower extremities. Negative for: Cyanosis, Calf tenderness Skin:: Ecchymosis - Multiple areas of ecchymosis bilateral upper extremities in various stages of healing. Negative for: Lesions, Rash, Petechiae Psychiatric:: Appropriate affect, Euthymic Laboratory Data: Laboratory Tests 12/02/17 12/02/17 12/02/17 Range/Units 11:28 06:45 05:45 WBC (4.4-11.0) K/mm3 RBC (4.2-5.4) M/mm3 Hgb (12.0-15.0) g/dl Hct (37-47) % MCV (81-99) fL MCH (27.0-32.0) pg MCHC (32-36) g/gl RDW (11.6-14.6) % RDW Differential (35.1-43.9) fl Plt Count (150-450) K/mm3 MPV (6.2-12.0) fl Differential Comment Sodium 143 (136-145) mmol/L Potassium 4.4 (3.5-5.1) mmol/L Chloride 114 H (98-107) mmol/L Carbon Dioxide 21.0 (21.0-32.0) mmol/L Anion Gap 8 (5-15) BUN 26 H (7-18) mg/dL Creatinine 1.82 H (0.55-1.02) mg/dL Estim Creat Clear Calc 26.37 ml/min Est GFR (MDRD) Af Amer 35 L (>60) mL/min Est GFR (MDRD) Non-Af 29 L (>60) mL/min BUN/Creatinine Ratio 14.3 (10-20) RATIO Glucose 94 (74-106) mg/dL Calcium 8.2 L (8.5-10.1) mg/dL POC Glucose 119 H 117 H (70-110) mg/dL 12/02/17 12/01/17 12/01/17 Range/Units 05:45 21:43 15:52 WBC 6.5 (4.4-11.0) K/mm3 RBC 2.64 L (4.2-5.4) M/mm3 Hgb 7.9 L (12.0-15.0) g/dl Hct 26.7 L (37-47) % MCV 101.1 H (81-99) fL MCH 29.9 (27.0-32.0) pg MCHC 29.6 L (32-36) g/gl RDW 21.6 H (11.6-14.6) % RDW Differential 75.0 H (35.1-43.9) fl Plt Count 255 (150-450) K/mm3 MPV 10.7 (6.2-12.0) fl Differential Comment COMMENT Sodium (136-145) mmol/L Potassium (3.5-5.1) mmol/L Chloride (98-107) mmol/L Carbon Dioxide (21.0-32.0) mmol/L Anion Gap (5-15) BUN (7-18) mg/dL Creatinine (0.55-1.02) mg/dL Estim Creat Clear Calc ml/min Est GFR (MDRD) Af Amer (>60) mL/min Est GFR (MDRD) Non-Af (>60) mL/min BUN/Creatinine Ratio (10-20) RATIO Glucose (74-106) mg/dL Calcium (8.5-10.1) mg/dL POC Glucose 138 H 128 H (70-110) mg/dL Diagnostic Data: Diagnostic Data Chest X-Ray 11/30/17 05:55 IMPRESSION: Left lower lung infiltrate or edema and pleural effusion. Cardiac enlargement. Electronically Signed: Amador Guo MD at 8:20 EDT , Service support , Assessment and Plan Patient is a 72-year-old female with a past medical history significant for morbid obesity, diabetes, chronic renal failure, hypertension, chronic atrial fibrillation on long-term anticoagulation and chronic GI blood loss attributed to diverticular disease (most recent colonoscopy was in 2017 under the care of Dr. Hobbs. Findings of which were positive for extensive diverticular disease - biopsy of right colon was negative - (concern for ischemic colitis). There had been occasions when her Coumadin anticoagulation had to be held due to increasing GI blood loss despite the fact that she is at an increased risk for cerebrovascular events from chronic atrial fibrillation Receives Venofer intermittently for management of chronic, recurrent anemia attributable to iron deficiency r/t chronic GI blood loss. Found to have Hgb 7.1 as an outpatient 11/29/17 and subsequently presented to [facility] ED with c/o hematochezia. Stool Guaiac positive. Coumadin held, given PO vitamin K and 3 units leukodepleted PRBCs. 1. Anemia, multifactoral in the setting of chronic kidney disease and secondary to acute on chronic blood loss from GI tract- Underwent EGD and colonoscopy yesterday under the care of Dr. Birmingham- no source of bleeding was identified. Maggie blood in the stool has resolved. Hgb now 7.9. [facility]aled [facility] care inclusive of iron repletion with later discussion about use of erythropoietin stimulating agents to improve anemia. Recommended she continue PO iron supplementation BID-TID as tolerated with vitamin C at discharge and will require close monitoring upon restarting anticoagulation with Coumadin. Otherwise, can follow up with Dr. Khan at [facility] upon discharge. Case discussed with Dr. Khan, who was in agreement with the aforementioned plan. Leslie Peres, MSN, [employer], AOCNP Medications: Prescriptions This Visit Medication Instructions Recorded Ferrous Sulfate 325 mg PO BID 11/29/17 Medications Added to Medication List This Visit Category Date Time Status Furosemide [Lasix] Med 12/02/17 10:00 Active 20 mg PO DAILY Lisinopril [Zestril] Med 12/02/17 10:00 Active 10 mg PO DAILY Primary Care Provider: Jyothi Weber Referring Provider:
--- NOTE | 2017-12-02 13:20 | PN_ITS ---
- Problem List (1) Iron deficiency anemia Status: Chronic Qualifiers: Iron deficiency anemia type: chronic blood loss Qualified Code(s): D50.0 - Iron deficiency anemia secondary to blood loss (chronic) (2) Anemia in chronic kidney disease (CKD) Status: Acute Qualifiers: Chronic kidney disease stage: stage 3 (moderate) Qualified Code(s): N18.3 - Chronic kidney disease, stage 3 (moderate); D63.1 - Anemia in chronic kidney disease Subjective Date of Service:: 12/02/17 Anemia, acute GI bleed Patient is a 72-year-old female with a past medical history notable for morbid obesity, diabetes, chronic renal failure, hypertension, chronic atrial fibrillation on long-term anticoagulation and chronic GI blood loss attributed to diverticular disease (most recent colonoscopy was in 2017 under the care of Dr. Hobbs. Findings of which were positive for extensive diverticular disease - biopsy of right colon was negative - (concern for ischemic colitis). There had been occasions when her Coumadin anticoagulation had to be held due to increasing GI blood loss despite the fact that she is at an increased risk for cerebrovascular events from chronic atrial fibrillation Receives Venofer intermittently for management of chronic, recurrent anemia attributable to iron deficiency r/t chronic GI blood loss. Found to have Hgb 7.1 as an outpatient and subsequently presented to [facility] ED with c/o hematochezia. Stool Guaiac positive. Coumadin held, given PO vitamin K. Given 3 units of PRBCs. Underwent EGD and colonoscopy yesterday under the care of Dr. Birmingham. No source of bleeding was identified. Patient reports she is feeling much better in terms of energy levels and verbalizes she is eager to home. Continues to experience loose stools this morning she attributes to colonoscopy prep however last episode of maggie blood in stool was Saturday approx noon. Past Medical History: Chronic Problems (Last Reviewed 11/04/17 @ 12:55 by Shirley Mcpherson) CKD (chronic kidney disease), stage III (Chronic) Atherosclerotic heart disease of [place] coro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 pectoris (Chronic) C: 07/30/2006; 04/10/17 Chronic atrial fibrillation (Chronic) Hyperkalemia (Chronic) HLD (hyperlipidemia) (Chronic) HTN (hypertension) (Chronic) Non-ST elevation (NSTEMI) myocardial infarction (Chronic) Nonrheumatic aortic (valve) stenosis (Chronic) Nonrheumatic mitral (valve) insufficiency (Chronic) Nonrheumatic tricuspid (valve) insufficiency (Chronic) Other secondary pulmonary hypertension (Chronic) SOB (shortness of breath) (Chronic) NSTEMI (non-ST elevated myocardial infarction) (Chronic) Chronic atrial fibrillation (Chronic) Hypertension (Chronic) Hyperlipidemia (Chronic) Type 2 diabetes mellitus (Chronic) CAD (coronary artery disease) (Chronic) Anemia (Chronic) CRF (chronic renal failure) (Chronic) Iron deficiency anemia (Chronic) Diverticular disease (Chronic) Morbid obesity (Chronic) Past Medical History - Most Recent Inpatient Visit Past Medical History Start: 11/30/17 00: 37 Text: Status: Complete Freq: ONCE Protocol: Document 11/30/17 00:37 AMS (Rec: 11/30/17 00:42 AMS [id number]) BMI Required to complete PMH What is Patient's BMI 58.4 Past Medical History Unable History Recalled No Query Text:Pt Unable/Family Not Present Neurologic Medical History Hx Stroke/TIA No Hx Dementia/Alzheimer's No Hx Parkinson's Disease No Hx Seizures No Hx Multiple Sclerosis No Hx Migraines No Cardiac Medical History VTE Present on Admission No Hx of Deep Vein Thrombosis/VTE/PE No Hx Hypertension Yes Hx Chest Pain/Angina No Hx Heart Attack Yes: 11/2016 Hx Cardiac Surgery/Stents/Etc. No Hx Heart Failure No Hx Pacemaker/AICD No Hx Irregular Heartbeat and/or Afib Yes Hx Anticoagulant Therapy Yes: coumadin Query Text:(Coumadin, Aspirin, Plavix, Xarelto, etc.) Hx Pain in Legs when Walking/Leg Cramps No Respiratory Medical History Hx COPD No Hx Emphysema No Hx Smoking No Smoking Status Never smoker Tobacco Use Non-smoker Hx Tobacco Use in last 12 months No Hx Sleep Apnea Yes: cpap CPAP Yes BIPAP No STOP Results Positive GI Medical History Hx Ulcer No Hx Hepatitis No Hx Cirrhosis No Hx GI Bleed No Hx Unplanned Weight Loss No Genitourinary Medical History Indwelling Catheter in Place on Arrival/ No Admission Hx Renal Disease Yes: low renal function Hx Dialysis No Musculoskeletal History Hx Arthritis No Hx Rheumatoid Arthritis No Endocrine Medical History Hx Diabetes Yes Hx Thyroid Disease No Hematologic Medical History Hx of Blood Transfusion Yes Hx of Transfusion in last 3 Months No Ever experience any problems with No transfusion(s)? Hx of Preganancy in last 3 Months No Nurse Filling Out Transfusion & ASELF Questions: Date: 11/30/17 Time: 00:41 Psycho/Social Medical History Hx Depression No Hx Anxiety No Hx Behavior Disorder No Hx Alcohol Use No Hx Substance Use No Other Medical History Hx Blood Disorders No Hx Anemia Yes Hx Cancer No Hx Drug Resistant Organism No Wound/Pressure Injury Present on Arrival No /Admission Query Text:If yes, chart assessment in Shift/Clinical Findings Central Line/PICC/VAD Present on Arrival No /Admission Antibiotics within last 7 days? No Methicillin Resistant Staphylococcus aureus Screening Active MRSA No Risk for Readmission Number of Risk Factors 4 At Risk for Readmission Patient is At Risk For Readmission Patient is eligible for Call Back Y Past Medical History (Last Reviewed 11/04/17 @ 12:55 by Shirley Mcpherson) Atherosclerotic heart disease of [place] coro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 pectoris (Chronic) Chronic atrial fibrillation (Chronic) GI bleed (Acute) Hyperkalemia (Chronic) HLD (hyperlipidemia) (Chronic) HTN (hypertension) (Chronic) Non-ST elevation (NSTEMI) myocardial infarction (Chronic) Nonrheumatic aortic (valve) stenosis (Chronic) Nonrheumatic mitral (valve) insufficiency (Chronic) Nonrheumatic tricuspid (valve) insufficiency (Chronic) Other secondary pulmonary hypertension (Chronic) SOB (shortness of breath) (Chronic) Anemia (Acute) Arthritis (Acute) Bloody stool (Acute) Diabetes (Acute) Diverticulitis (Acute) Fatigue (Acute) Heart attack (Acute) Heart disease (Acute) History of GI bleed (Acute) History of blood transfusion (Acute) History of pneumonia (Acute) Kidney disease (Acute) Knee pain (Acute) Liver disease (Acute) Obesity (Acute) Osteopenia (Acute) Pulmonary hypertension (Acute) Sepsis (Acute) Sepsis secondary to UTI (Acute) Past Surgical History (Last Reviewed 11/04/17 @ 12:55 by Shirley Mcpherson) History of appendectomy (Acute) History of hysterectomy (Acute) Status post right foot surgery (Acute) History of left heart catheterization (LHC) (Resolved) Maternal Family History: Family History (Last Reviewed 11/04/17 @ 12:56 by Shirley Mcpherson) Mother Uterine cancer Hypertension Father Heart disease Diabetes CAD (coronary artery disease) Hypertension Family History: - - Mother with a history of hypertension, uterine cancer. Paternal Family History: Family History (Last Reviewed 11/04/17 @ 12:56 by Shirley Mcpherson) Mother Uterine cancer Hypertension Father Heart disease Diabetes CAD (coronary artery disease) Hypertension Family History: - - Father with a history of coronary artery disease, diabetes, heart disease, hypertension. - Social History Lives: Spouse/ Significant Other Smoking Status: Never smoker Tobacco Use: Non-smoker Alcohol: None Drugs: None Review of Systems Constitutional:: Reports: Fatigue - Improved. Denies: Fever, Sweats, Weight loss, Appetite change, Chills Cardiovascular:: Reports: Dyspnea on exertion - Improved. Denies: Chest pain, Palpitations, Orthopnea, PND Respiratory: Reports: Sputum production. Denies: Cough, Hemoptysis, Wheezing Gastrointestinal:: Reports: Diarrhea. Denies: Abdominal pain, Nausea, Vomiting , Constipation, Melena, Hematochezia, Gas/bloating, Reflux Genitourinary: Reports: Incontinence. Denies: Dysuria, Hematuria, Urinary frequency, Flank pain Musculoskeletal:: Reports: Joint stiffness - Knees bilateral Skin: Denies: Rash, Skin Changes, Wounds Neurological:: Denies: Headache, Dizziness, Numbness, Tingling, Visual changes, Tinnitus, Hearing loss Psychiatric: Denies: Anxiety, Depression, Homicidal Ideations, Suicidal Ideations Vital Signs Height 5 ft 7 in Weight: 373 lb 0.354 oz Weight in Pounds 373.0 lbs Pulse Ox 93 Temperature 98.4 F Pulse Rate 66 Respiratory Rate 16 Blood Pressure [BP] 144/85 Blood Pressure 143/65 Blood Pressure Position [BP] Semi-Fowlers Blood Pressure Position Semi-Fowlers - Physical Exam General: Alert, Oriented x3 HEENT: Atraumatic, Normocephalic Oropharynx:: Negative for: Dry mucosa, Ulcerated lesions Neck:: Supple, Trachea midline. Negative for: JVD, bilateral Cardiac:: Murmur. Negative for: Regular rhythm Lungs: Normal air movement, Wheezes - Faint expiratory throughout, Excusion symmetrical. Negative for: Rhonchi, Increased respiratory effort Abdomen:: Bowel sounds x 4, Soft, Non-tender, Non-distended. Negative for: Hepatosplenomegaly - Difficult to discern due to large body habitus Extremities:: Edema - Bilateral lower extremities. Negative for: Cyanosis, Calf tenderness Skin:: Ecchymosis - Multiple areas of ecchymosis bilateral upper extremities in various stages of healing. Negative for: Lesions, Rash, Petechiae Psychiatric:: Appropriate affect, Euthymic Laboratory Data: Laboratory Tests 3 12/02/17 12/02/17 12/02/17 Range/Units 11:28 06:45 05:45 WBC (4.4-11.0) K/mm3 RBC (4.2-5.4) M/mm3 Hgb (12.0-15.0) g/dl Hct (37-47) % MCV (81-99) fL MCH (27.0-32.0) pg MCHC (32-36) g/gl RDW (11.6-14.6) % RDW Differential (35.1-43.9) fl Plt Count (150-450) K/mm3 MPV (6.2-12.0) fl Differential Comment Sodium 143 (136-145) mmol/L Potassium 4.4 (3.5-5.1) mmol/L Chloride 114 H (98-107) mmol/L Carbon Dioxide 21.0 (21.0-32.0) mmol/L Anion Gap 8 (5-15) BUN 26 H (7-18) mg/dL Creatinine 1.82 H (0.55-1.02) mg/dL Estim Creat Clear Calc 26.37 ml/min Est GFR (MDRD) Af Amer 35 L (>60) mL/min Est GFR (MDRD) Non-Af 29 L (>60) mL/min BUN/Creatinine Ratio 14.3 (10-20) RATIO Glucose 94 (74-106) mg/dL Calcium 8.2 L (8.5-10.1) mg/dL POC Glucose 119 H 117 H (70-110) mg/dL 3 12/02/17 12/01/17 12/01/17 Range/Units 05:45 21:43 15:52 WBC 6.5 (4.4-11.0) K/mm3 RBC 2.64 L (4.2-5.4) M/mm3 Hgb 7.9 L (12.0-15.0) g/dl Hct 26.7 L (37-47) % MCV 101.1 H (81-99) fL MCH 29.9 (27.0-32.0) pg MCHC 29.6 L (32-36) g/gl RDW 21.6 H (11.6-14.6) % RDW Differential 75.0 H (35.1-43.9) fl Plt Count 255 (150-450) K/mm3 MPV 10.7 (6.2-12.0) fl Differential Comment COMMENT Sodium (136-145) mmol/L Potassium (3.5-5.1) mmol/L Chloride (98-107) mmol/L Carbon Dioxide (21.0-32.0) mmol/L Anion Gap (5-15) BUN (7-18) mg/dL Creatinine (0.55-1.02) mg/dL Estim Creat Clear Calc ml/min Est GFR (MDRD) Af Amer (>60) mL/min Est GFR (MDRD) Non-Af (>60) mL/min BUN/Creatinine Ratio (10-20) RATIO Glucose (74-106) mg/dL Calcium (8.5-10.1) mg/dL POC Glucose 138 H 128 H (70-110) mg/dL Diagnostic Data: Diagnostic Data Chest X-Ray 11/30/17 05:55 IMPRESSION: Left lower lung infiltrate or edema and pleural effusion. Cardiac enlargement. Electronically Signed: Amador Guo MD at 8:20 EDT , Service support , Assessment and Plan Patient is a 72-year-old female with a past medical history significant for morbid obesity, diabetes, chronic renal failure, hypertension, chronic atrial fibrillation on long-term anticoagulation and chronic GI blood loss attributed to diverticular disease (most recent colonoscopy was in 2017 under the care of Dr. Hobbs. Findings of which were positive for extensive diverticular disease - biopsy of right colon was negative - (concern for ischemic colitis). There had been occasions when her Coumadin anticoagulation had to be held due to increasing GI blood loss despite the fact that she is at an increased risk for cerebrovascular events from chronic atrial fibrillation Receives Venofer intermittently for management of chronic, recurrent anemia attributable to iron deficiency r/t chronic GI blood loss. Found to have Hgb 7.1 as an outpatient and subsequently presented to [facility] ED with c/o hematochezia. Stool Guaiac positive. Coumadin held, given PO vitamin K and 3 units leukodepleted PRBCs. 1. Anemia, multifactoral in the setting of chronic kidney disease and secondary to acute on chronic blood loss from GI tract- Underwent EGD and colonoscopy yesterday under the care of Dr. Birmingham- no source of bleeding was identified. Maggie blood in the stool has resolved. Hgb now 7.9. Revealed intermediate frame tender goals of care inclusive of iron repletion with later discussion about use of erythropoietin stimulating agents to improve anemia. Recommended she continue PO iron supplementation BID-TID as tolerated with vitamin C at discharge and will require close monitoring upon restarting anticoagulation with Coumadin. Otherwise, can follow up with Dr. Khan at [facility] upon discharge. Case discussed with Dr. Khan, who was in agreement with the aforementioned plan. Leslie Peres, MSN, [employer], AOCNP Medications: Prescriptions This Visit Medication Instructions Recorded Ferrous Sulfate 325 mg PO BID 11/29/17 Medications Added to Medication List This Visit Category Date Time Status Furosemide [Lasix] Med 12/02/17 10:00 Active 20 mg PO DAILY Lisinopril [Zestril] Med 12/02/17 10:00 Active 10 mg PO DAILY Primary Care Provider: Jyothi Weber Referring Provider:
--- NOTE | 2017-12-04 15:59 | CASEMGMT ---
[facility] DISCHARGE F/U PHONE CALL LACE: 12 STRATA: 4 CALL DATE: 12/04/17 DISCHARGE DATE: 12/02/17 TIME OF CALL: 1553 DURATION: 7 MINUTES ADM DX: GI BLEED, ANEMIA PT STATES SHE HAS BEEN 'DOING SOME BETTER' SINCE DISCHARGE. PT STATES THAT SHE FOLLOWED UP WITH DR BOB' OFFICE TODAY FOR BLOODWORK AND HER HGB IS NOW 9.7. PT STATES WILL BE GOING BACK TO DR BOB' OFFICE TOMORROW FOR AN IRON INFUSION. PT STATES NO QUESTIONS REGARDING D/C INSTRUCTIONS OR MEDICATIONS AT THIS TIME. PT STATES THAT 'EVERYBODY WAS SO WONDERFUL' DURING VISIT AND SHE HAS NO CONCERNS/SUGGESTIONS AT THIS TIME. PT VOICES NO FURTHER CONCERNS/NEEDS AT THIS TIME. PT PROVIDED WITH THIS [facility] CONTACT INFO AT THIS TIME AND ADVISED PT TO CALL WITH ANY FURTHER QUESTIONS/CONCERNS/NEEDS, VOICES UNDERSTANDING. SSTATEN [facility]LE [facility]UM
== END 2017-12-02 13:52 | disposition home or self-care (01) | DRG 811 ==
LOC: ED 20:36 → MS2 11-30 00:06 → PCU 12-01 14:00
PROVIDERS: Internal Medicine; Surgery; Admitting Provider Family Medicine; Emergency Provider Emergency Medicine; Family Provider Nurse Practitioner; PCP Nurse Practitioner
PROC: 0DJD8ZZ Inspection of Lower Intestinal Tract, Via Natural or Artificial Opening Endoscopic (ICD-10-PCS; CPT 45378; principal; 2017-12-01 13:45)
DX: D62 Acute posthemorrhagic anemia (principal); I50.33 Acute on chronic diastolic (congestive) heart failure; K57.31 Diverticulosis of large intestine without perforation or abscess with bleeding; I13.0 Hypertensive heart and chronic kidney disease with heart failure and stage 1 through stage 4 chronic kidney disease, or unspecified chronic kidney disease; N17.9 Acute kidney failure, unspecified; Z68.43 Body mass index [BMI] 50.0-59.9, adult; E11.22 Type 2 diabetes mellitus with diabetic chronic kidney disease; N18.3 Chronic kidney disease, stage 3 (moderate); E78.00 Pure hypercholesterolemia, unspecified; I48.0 Paroxysmal atrial fibrillation; I27.29 Other secondary pulmonary hypertension; D63.1 Anemia in chronic kidney disease; I25.10 Atherosclerotic heart disease of native coro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 pectoris; E78.5 Hyperlipidemia, unspecified; E87.5 Hyperkalemia; I48.2 Chronic atrial fibrillation; G47.33 Obstructive sleep apnea (adult) (pediatric); E66.01 Morbid (severe) obesity due to excess calories; I89.0 Lymphedema, not elsewhere classified; I35.0 Nonrheumatic aortic (valve) stenosis; I34.0 Nonrheumatic mitral (valve) insufficiency; I36.1 Nonrheumatic tricuspid (valve) insufficiency; K64.9 Unspecified hemorrhoids; I87.2 Venous insufficiency (chronic) (peripheral); I25.2 Old myocardial infarction; Z79.84 Long term (current) use of oral hypoglycemic drugs; Z79.01 Long term (current) use of anticoagulants; Z79.899 Other long term (current) drug therapy; Z71.3 Dietary counseling and surveillance
CPT/HCPCS: 36415; 71045; 71046; 80048; 82274; 82962; 83735; 83880; 84484; 85014; 85018; 85025; 85027; 85610; 85730; 86850; 86900; 86920; 86922; 93005; 94640; 97110; 97161; 97165; 97530; 97802; 99285; J7030; J7040; P9016; A4216; J1940

== ENCOUNTER → 2017-12-23 13:09 | Outpatient (CLI) | payer MEDICARE, OTHER, SELFPAY ==
--- NOTE | 2017-12-23 13:17 | RAD_ITS ---
STUDY: X-RAY CHEST REASON FOR EXAM: Female, 72 years old. Dyspnea. Pleural effusion. TECHNIQUE: Frontal and lateral views of the chest. COMPARISON: 11/30/2017. FINDINGS: Normal lung volumes. Stable interstitial and bronchovascular prominence including peribronchial cuffing. Findings are consistent with congestion and interstitial edema. Atelectasis or infiltrate in the left lung base with small pleural effusion also stable. Mild to moderate cardiomegaly is stable. Degenerative changes throughout the spine with ankylosis. RAD/Chest PA and Lateral IMPRESSION: No significant change. Electronically Signed: Geovanni Roper MD at 16:00 EDT , Service support ,
--- NOTE | 2017-12-23 13:20 | RAD_ITS ---
STUDY: X-RAY CHEST REASON FOR EXAM: Female, 72 years old. Pleural effusion. TECHNIQUE: Bilateral decubitus. COMPARISON: Radiographs of the same date.. FINDINGS: On the left there is a small layering pleural effusion. On the right no significant free-flowing fluid. Electronically Signed: Geovanni Roper MD at 16:01 EDT , Service support , RAD/Special CXR (Obl/Decub/A/L)
--- NOTE | 2017-12-23 13:20 | RAD_ITS ---
STUDY: X-RAY CHEST REASON FOR EXAM: Female, 72 years old. Dyspnea TECHNIQUE: Bilateral decubitus. COMPARISON: Radiographs of the same date.. FINDINGS: On the left there is a small layering pleural effusion. On the right no significant free-flowing fluid. Electronically Signed: Geovanni Roper MD at 16:00 EDT , Service support , RAD/Special CXR (Obl/Decub/A/L)
== END ==
PROVIDERS: Family Provider Nurse Practitioner; PCP Nurse Practitioner; Visit Provider Internal Medicine Pulmonary Disease
DX: J90 Pleural effusion, not elsewhere classified (principal)
CPT/HCPCS: 71046

== ENCOUNTER 2018-01-08 09:15 | Day surgery (SDC) | payer MEDICARE, OTHER, SELFPAY ==
[2018-01-08] VITALS (10 sets, daily range): BP systolic 149–191; BP diastolic 66–105; PULSE 60–90; RESP 20–24; TEMP 35.9–36.7; O2SAT 84–96; BMI 61.5
[2018-01-08 09:45] LABS: Bedside Glucose 147 mg/dL (70-110)
[2018-01-08 09:50] LABS: Prothrombin Time Fingerstick 13.7 SEC (11.9-14.4)
[2018-01-08] MEDS: Cefazolin 2 GM in 0.9% Normal Saline 100 ML IV (11:10)
--- NOTE | 2018-01-08 11:55 | PCM.DC.POR ---
Discharge Diet: No Restrictions - Pain medication may cause nausea. You should typically eat light foods as you take your pain medication. Discharge Activity: Return to Normal Activity, May Shower - with your bandage in place in 1-2 days after surgery. DO NOT SHOWER WHEN YOUR PORT IS ACCESSED. Call your doctor if your incision/area has: Continuous Slow Oozing, Sudden Increased Bleeding, Increased Pain/ Swelling, Increased Redness Call your doctor if you observe: Fever of 101 or Higher Remove Dressing in (days):: 2 - When you remove the bandage, leave the steri-strips intact until they fall off. Allergies/Adverse Reactions: Allergies No Known Allergies Allergy (Verified 01/07/18 09:31) Medications to take at Discharge Ascorbic Acid [Vitamin C] 1,000 mg PO TID 11/18/17 Budesonide/Formoterol Fumarate [Symbicort 160-4.5 Mcg Inhaler] 2 puff IH BID 11/18/17 Calcium Citrate 500 mg PO BID 11/18/17 Cholecalciferol (Vitamin D3) [Vitamin D3] 4,000 unit PO BID 11/18/17 Febuxostat [Uloric] 80 mg PO PRN PRN 11/18/17 Furosemide [Lasix] 20 mg PO DAILY 11/18/17 Linagliptin [Tradjenta] 5 mg PO PRN PRN 11/18/17 Lisinopril [Zestril] 10 mg PO DAILY 11/18/17 Magnesium Oxide [Magnesium] 250 mg PO BID 11/18/17 Metoprolol Tartrate [Lopressor (beta long)] 100 mg PO BID 11/18/17 Multivitamin [Daily Multiple Vitamin] 1 ea PO DAILY 11/18/17 Pravastatin Sodium 80 mg PO QHS 11/18/17 Ropinirole HCl [Requip] 0.25 mg PO QHS 11/18/17 Sildenafil Citrate [Revatio] 20 mg PO TID 11/18/17 Ubidecarenone [Coenzyme Q-10] 100 mg PO DAILY 11/18/17 Warfarin [Coumadin] 5 mg PO DAILY 11/18/17 hydrALAZINE [Apresoline] 25 mg PO TID 11/18/17 Ferrous Sulfate 325 mg PO TID 11/29/17 Ipratropium/Albuterol Sulfate [Combivent Respimat Inhal [place]] 1 puff IH DAILY 01/03/18 Primary Care Physician: Jyothi Weber [Primary Care Provider] - Please Follow Up With: Bo Madrid MD When: call tomorrow to make 2 week follow up appt [phone]
--- NOTE | 2018-01-08 11:56 | RAD_ITS ---
STUDY: X-RAY CHEST REASON FOR EXAM: Female, 72 years old. Right port insertion. TECHNIQUE: Single AP portable view of the chest. COMPARISON: Comparison is made with prior study dated December 23, 2017. FINDINGS: A right-sided portacatheter is in place. The tip is at the junction of the superior vena cava and right atrium. EKG electrodes are seen. Stable small left pleural effusion with underlying atelectasis and/or infiltrate. Mild increased markings at the right lung base as well as the right suprahilar region. Follow-up is recommended. Normal size heart. Normal mediastinum and veronika. Normal visualized pulmonary arteries. There is atherosclerotic tortuosity of the aortic arch and descending thoracic aorta. There are diffuse degenerative changes of the visualized thoracic spine. Normal visualized ribs, clavicles, and shoulders. There is no demonstrated abnormality of the visualized soft tissue structures of the upper abdomen. RAD/CXR for Line Placement IMPRESSION: The tip of the right tamiko catheter is at the junction of the superior vena cava and right atrium. Stable findings in the lungs. Electronically Signed: Irvin Edwards MD at 12:57 EDT Tel [phone], Service support ,
--- NOTE | 2018-01-08 11:58 | OP.PCM_ITS ---
Problem List (1) Encounter for insertion of venous access port Status: Acute (2) Anemia Status: Chronic Qualifiers: Anemia type: unspecified type Qualified Code(s): D64.9 - Anemia, unspecified Report of Operation Date of Procedure: 01/08/18 Pre-Operative Diagnosis: Anemia need for chronic vascular access for iron infusions Post-Operative Diagnosis: Same Surgery/Procedure Performed:: Fluoroscopy and ultrasound-guided right chest port placement utilizing right IJ Specimen's removed: None Description of Procedure: After obtaining informed consent patient was brought back to the operating room MAC anesthesia was induced and the right chest and neck were prepped in normal sterile fashion. Ultrasound was used to evaluate both IJ is in the right IJ was selected. Next, using a needle, the right IJ was accessed and a guidewire was passed on into the superior vena cava under fluoroscopy guidance. A small incision was made over the puncture site and the dilator introducer was placed over the guidewire. Next this was capped and the pocket was made for the port. 1% lidocaine with epinephrine was injected in the proposed port site. An incision was made with scalpel. Electrocautery was used to make a pocket under the skin and subcutaneous tissue. Hemostasis was obtained. Next, the catheter was tunneled up to the neck incision site and placed through the introducer. The peel-away introducer was removed and the position of the catheter was confirmed on fluoroscopy. Next, the catheter was trimmed and attached to the port with the locking device. Interrupted 2-0 PDS were used to anchor the port to the chest wall and then the port was placed inside the pocket. The pocket was then flushed with saline and the port irrigated with saline. There was good blood return and the port flushed easily. Next, heparin was injected into the port. The skin was closed with subcutaneous interrupted 3-0 Vicryl sutures. A single 3-0 Vicryl suture placed under the skin at the neck incision site. Steri-Strips were placed as well as op sites. Patient tolerated procedure well, was taken to PACU in stable condition. Chest x-ray will be obtained. Grafts/Implants Used: 8 [place] Power[employer] and right IJ
--- NOTE | 2018-01-08 12:50 | SUR.PHASEI ---
Addendum entered by Dana Canales 01/08/18 13:22: ALBUTEROL TX GIVEN, PT STATES SHE DOES NOT FEEL SOB, PULSE OX 93% ON ROOM AIR. RESPS 20 Original Note: WAS GETTING READY TO DISCHARGE PT FROM PACU WHEN HER RESPS WENT UP TO 26, PT STATES SHE IS SOB. PULSE 92. PT RECENTLY STARTED ON ALBUTEROL NEBULIZER TREATMENTS AT HOME. CALLED DR WATT, ORDER RECEIVED FOR NEBULIZER.
== END 2018-01-08 14:00 | disposition home or self-care (01) ==
LOC: SDC 09:17 → AC 09:17
PROVIDERS: Family Provider Nurse Practitioner; PCP Nurse Practitioner; Visit Provider Surgery
PROC: (CPT 36561; principal; 2018-01-08 10:45)
DX: Z45.2 Encounter for adjustment and management of vascular access device (principal); D64.9 Anemia, unspecified; I48.2 Chronic atrial fibrillation; I25.2 Old myocardial infarction; I11.0 Hypertensive heart disease with heart failure; I50.9 Heart failure, unspecified; J45.909 Unspecified asthma, uncomplicated; G47.30 Sleep apnea, unspecified; G25.81 Restless legs syndrome; E11.9 Type 2 diabetes mellitus without complications; Z79.4 Long term (current) use of insulin; I25.10 Atherosclerotic heart disease of native coro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 pectoris; E87.5 Hyperkalemia; I35.0 Nonrheumatic aortic (valve) stenosis; I36.1 Nonrheumatic tricuspid (valve) insufficiency; I34.0 Nonrheumatic mitral (valve) insufficiency; I27.29 Other secondary pulmonary hypertension; M19.90 Unspecified osteoarthritis, unspecified site; N28.9 Disorder of kidney and ureter, unspecified; K76.9 Liver disease, unspecified; M85.80 Other specified disorders of bone density and structure, unspecified site; E66.01 Morbid (severe) obesity due to excess calories; Z68.43 Body mass index [BMI] 50.0-59.9, adult; Z86.19 Personal history of other infectious and parasitic diseases; Z79.01 Long term (current) use of anticoagulants; Z79.899 Other long term (current) drug therapy
CPT/HCPCS: 00532; 36561; 77001; 36416; 71045; 82962; 85610; 94640; J7120

== ENCOUNTER → 2018-01-22 10:30 | Outpatient (CLI) | payer MEDICARE, OTHER, SELFPAY ==
--- NOTE | 2018-01-21 | FLU_PTH ---
PATIENT: KAMI ROLLE LOC: U#:[id number] AGE/SX: 80/F ROOM: RE01/22/[address]: Dr. Carlos Nelson MD : 1945 BED: DIS: SPEC #: [id number] RECD: 01/24/18 08:47 STATUS: LUCY WEN #: [id number] CHELSEA: 01/21/18 00:[address]: Carlos Nelson V DEPT: CYTOLOGY RECD BY: Keenan Bach ENTERED: 01/24/18 08:48 SP TYPE: Fluid OTHR DR: Jyothi Weber, PROVIDER RELATIONS REPRESENTATIVE-C Tissues: THORACIC FLUID Procedures: Special Stain Group II Surgery Specimen Level IV Cytospin Fluid HEADER OPERATION: Thoracentesis PRE-OP DIAGNOSIS: Pleural effusion TISSUE SUBMITTED: Thoracentesis fluid for cytology DIAGNOSIS CYTOLOGY Thoracentesis fluid for cytology (cytospin and cell block): Negative for malignant cells. ALETHA:rachael 01/25/18 CYTOLOGY STUDY Slides are reviewed. The specimen consists of mesothelial cells, macrophages and inflammatory cells. CYTOLOGY GROSS Received is 695 ml of laquita cloudy fluid labeled with the patient's name and and designated per the requisition as thoracentesis. Submitted for cytology preparation including cell block. / 01/23/18 TC:5 CPT: 36521, 81404
== END ==
PROVIDERS: Family Provider Nurse Practitioner; PCP Nurse Practitioner; Visit Provider Internal Medicine Pulmonary Disease
DX: J90 Pleural effusion, not elsewhere classified (principal)
CPT/HCPCS: 32555; 88108; 88305; 88313

== ENCOUNTER 2018-02-04 10:59 | Emergency (ER) | payer MEDICARE, OTHER, SELFPAY ==
[2018-02-04 11:00] VITALS: BP 97/41; PULSE 66; RESP 20; TEMP 36.6; O2SAT 100; BMI 52.4
[2018-02-04 11:43] LABS: Absolute Lymphocyte Count 1.03 X10^3/ul (0.83-4.51); Absolute Neutrophil Count 6.1 X10^3/uL (2.0-7.7); Basophil# 0.03 X10^3/uL; Basophil% 0.4 % (0-1); Eosinophil# 0.05 X10^3/uL; Eosinophils% 0.7 % (0-5); Hematocrit 18.8 % (37-47); Lymphocyte # 1.03 X10^3/ul (4.0); Lymphocyte % 13.8 % (19-41); Mean Corp Hgb Conc 30.3 g/gl (32-36); Mean Corpuscular Hgb 30.6 pg (27.0-32.0); Mean Corpuscular Volume 101.1 fL (81-99); Mean Platelet Vol. 12.1 fl (6.2-12.0); Monocyte# 0.25 X10^3/uL; Monocyte% 3.3 % (0-10); Neutrophil # 6.12 X10^3/uL (2.7-7.7); Neutrophil % 81.7 % (47-70); Platelet Count 227 K/mm3 (150-450); RBC Distribution Width CV 15.8 % (11.6-14.6); RBC Distribution Width SD 54.4 fl (35.1-43.9); Red Blood Count 1.86 M/mm3 (4.2-5.4); White Blood Count 7.5 K/mm3 (4.4-11.0)
[2018-02-04 11:47] LABS: Hemoglobin 5.7 g/dl (12.0-15.0); POSITIVE COUNT YES; POSITIVE DIFFERENTIAL NO; POSITIVE MORPHOLOGY NO
[2018-02-04 11:48] LABS: Differential Indicated SCAN CRITERIA MET
[2018-02-04 11:53] LABS: International Normalized Ratio 3.7
[2018-02-04 12:00] LABS: Hypochromasia 2+; Platelet Estimate ADEQUATE (ADEQ); Platelet Morphology LARGE
[2018-02-04 12:09] LABS: Anion Gap 9 (5-15); BUN 104 mg/dL (7-18); BUN/Creat Ratio 31.5 RATIO (10-20); Calcium,Total 8.7 mg/dL (8.5-10.1); Chloride 109 mmol/L (98-107); EST Glomerular Filtration Rate 15 mL/min (>60); Est Glom Filt Rate - Afr Amer 18 mL/min (>60); Estimated Creatinine Clearance 14.54 ml/min; Glucose 136 mg/dL (74-106); Potassium 5.5 mmol/L (3.5-5.1); Sodium Level 140 mmol/L (136-145)
--- NOTE | 2018-02-04 12:20 | ED.RN ---
bun [address] called from the lab. dr moya aware
--- NOTE | 2018-02-04 12:24 | NM_ITS ---
NM GI BLEED SCAN REASON FOR EXAM: Rectal bleeding for 4 days. TECHNIQUE: Following the intravenous administration of 25.4 mCi of technetium 99m labeled RBCs, dynamic acquisition of the abdomen and pelvis were acquired in the AP view for 60 minutes. FINDINGS: There is active extravasation of radiotracer in the left upper quadrant of the abdomen and small focal active extravasation of radiotracer in the right flank of the abdomen. There is increasing extravasation of radiotracer along the a stomach and increasing extravasation of radiotracer in the right flank of the upper abdomen. There are consistent with active bleeding. OPINION: 2 separate foci of active extravasation (active bleeding) of radiotracer located in the stomach and in the upper ascending colon. These active bleeding sites increase over time. Electronically Signed: Manuel Montoya MD at 14:19 EDT , Service support , NM/GI Bleed Scan
--- NOTE | 2018-02-04 12:25 | ED.VISSUMM ---
- ER Visit Summary Date of Service: 02/04/18 Chief Complaint: [Rectal bleeding] History of Present Illness: The patient is a 72 F [presents the emergency department with rectal bleeding for the last 4 days. Patient states that started having bright red blood in her stool 4 days ago. Patient states that she is having 2-3 bowel movements per day. Stools become more liquidy. Patient denies any fever. Patient does feel weak and somewhat lightheaded. Patient states that she had some episodes similar in November and had an upper and lower endoscopy at that time with Dr. Bobbi Birmingham. Patient has required transfusions in the past and has a history of low iron. Patient has a history of A. fib and is currently on Coumadin.] Physical Examination: [HEENT-PERRLA, EOMI. Cranial nerves II through XII grossly intact. TMs clear. Mucous membranes moist. No adenopathy. Cardiovascular-irregularly irregular with a 3 out of 6 systolic ejection murmur Lungs-clear to auscultation, chest wall stable without crepitus or subcu emphysema Abdomen-normoactive bowel sounds, soft, nontender, no rebound or rigidity, no peritoneal signs. Rectal exam-maroon stool noted, no masses palpated Extremities-intact ?4, normal range of motion, normal pulses, atraumatic] Test Results: [CBC with differential obtained for white count 7.5, hemoglobin 5.7, hematocrit 18.8, platelets 227. Chemistries unremarkable. BUN was 104 and creatinine was 3.3. INR was 3.7.] Bleeding study obtained showed patient to have bleeding from 2 sites one being in the cardia of the stomach and one being in the descending colon. Emergency Department Course and Treatment: [Case was discussed with hospitalist Dr. Fozia Huang as well as with general surgeon Dr. Keenan Mcclain and I was asked to transfer patient to higher level of care given her complicated medical issues] I was asked to order a bleeding scan which is been ordered and is pending Treatment Plan: [Transfer to [facility]]. I discussed case with office manager receptionist who accepted transfer of the patient. I did give patient 5 mg of vitamin K subcu. Disposition: [Transfer] Impression: Upper GI bleed and lower GI bleed [] This note was generated with [employer] dictation software. It may contain incorrect words, spelling, and punctuation that were not noted in review of the chart prior to signing ED Disposition - Plan for ED Patient: Chief Complaint: GI Bleed Referrals: Jyothi Weber [Primary Care Provider] -
--- NOTE | 2018-02-04 12:37 | EKG12_ITS ---
Test Reason : Blood Pressure : / mmHG Vent. Rate : 069 BPM Atrial Rate : 053 BPM P-R Int : 000 ms QRS Dur : 106 ms QT Int : 382 ms P-R-T Axes : 000 034 109 degrees QTc Int : 409 ms Atrial fibrillation Nonspecific ST and T wave abnormality Abnormal ECG Confirmed by HARPAL BALDWIN, AMY ([id number]), non linear editor JONATHON ROLLE ([id number]) on 02/06/2018 9:00:22 AM Referred By: SAMMIE Confirmed By:AMY ROWAN MD
--- NOTE | 2018-02-04 14:31 | NURSING ---
NO BEDS AT [facility] NO BEDS AT [facility] CALLED [facility] FOR TRANSFER.
[2018-02-04] MEDS: 0.9% Normal Saline 1,000 ML 150 ML IV (14:37)
[2018-02-04 14:38] VITALS: BP 130/46; PULSE 68; RESP 18; TEMP 36.6; O2SAT 99
[2018-02-04 14:59] VITALS: BP 110/46; PULSE 67; RESP 18; TEMP 36.6; O2SAT 100
[2018-02-04] MEDS: Phytonadione (Vit K) 10 MG/ML Ampul 5 MG SC (15:15)
--- NOTE | 2018-02-04 15:59 | NURSING ---
[facility] [id number] REPORT [phone]
[2018-02-04 16:53] VITALS: BP 113/53; PULSE 75; RESP 18; TEMP 36.6; O2SAT 100
[2018-02-04 17:07] VITALS: BP 118/50; PULSE 75; RESP 18; TEMP 36.6; O2SAT 99
[2018-02-05 09:51] LABS: Pathologist Review Reviewed
== END 2018-02-04 17:44 | disposition short-term general hospital (02) ==
LOC: ED 11:31
PROVIDERS: Emergency Provider Emergency Medicine; Family Provider Nurse Practitioner; PCP Nurse Practitioner
DX: K92.1 Melena (principal); I11.0 Hypertensive heart disease with heart failure; I50.9 Heart failure, unspecified; I25.2 Old myocardial infarction; I48.91 Unspecified atrial fibrillation; I27.20 Pulmonary hypertension, unspecified; D64.9 Anemia, unspecified; Z79.01 Long term (current) use of anticoagulants; Z79.899 Other long term (current) drug therapy
CPT/HCPCS: 36591; 78278; 80048; 85025; 85610; 86850; 86900; 86920; 86922; 93005; 96372; 99283; A9560; J7030; J7040; P9016; A4216

== ENCOUNTER 2018-02-23 09:53 | Emergency (ER) | payer MEDICARE, OTHER, SELFPAY ==
[2018-02-23 09:55] VITALS: BP 85/51; PULSE 67; RESP 15; TEMP 35.9; O2SAT 100; BMI 54.7
--- NOTE | 2018-02-23 10:04 | EKG12_ITS ---
Test Reason : GI BLEED Blood Pressure : / mmHG Vent. Rate : 073 BPM Atrial Rate : 100 BPM P-R Int : 000 ms QRS Dur : 084 ms QT Int : 396 ms P-R-T Axes : 000 026 046 degrees QTc Int : 436 ms Atrial fibrillation Nonspecific ST and T wave abnormality Abnormal ECG Confirmed by YVONNE BALDWIN, ALEXIA ([id number]), purchase request editor JONATHON ROLLE ([id number]) on 02/27/2018 1:03:39 PM Referred By: Jyothi Weber Confirmed By:ALEXIA RUSSELL MD
--- NOTE | 2018-02-23 10:04 | RAD_ITS ---
STUDY: X-RAY CHEST REASON FOR EXAM: Female, 72 years old. CHF TECHNIQUE: Single AP portable view of the chest. COMPARISON: 01/27/2018. FINDINGS: Right IJ central line in place with tip in mid SVC. The lungs are clear and expanded. There is no demonstrated pleural abnormality. There is mild cardiac enlargement. Normal mediastinum and veronika. Normal visualized pulmonary arteries. Normal visualized aortic arch and descending thoracic aorta. Normal visualized thoracic spine. Normal visualized ribs, clavicles, and shoulders. There is no demonstrated abnormality of the visualized soft tissue structures of the upper abdomen. RAD/Chest 1 View (Portable) IMPRESSION: No acute pulmonary disease. Stable mild cardiomegaly. Electronically Signed: Heriberto Dickey DO at 10:28 EDT , Service support ,
--- NOTE | 2018-02-23 10:09 | ED.VISSUMM ---
- ER Visit Summary Date of Service: 02/23/18 Chief Complaint: GI bleeding History of Present Illness: The patient is a 72 F presents to the emergency department with recurrent GI bleeding. 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 The patient was actually recently hospitalized about [address] [facility] for GI bleed. She was seen here initially, and was found to be significantly anemic with a supra therapeutic INR. She was started on a Protonix drip. She underwent a bleeding scan which showed 2 areas of bleeding from the duodenum and the ascending colon. Given her multiple comorbidities, she was transferred to the ICU at [facility]. While there, patient was transfused. She was kept on a Protonix drip. She states that she underwent endoscopy and colonoscopy but is unsure if she had any treatment. Her bleeding is stopped. The patient had her Coumadin stopped while she was hospitalized. She states she has been doing well at home, but today began to have bloody diarrhea. She does describe some dyspnea. She states that she had 4 episodes of red blood with some scant clots. She denies any abdominal pain. Physical Examination: Vital signs reviewed General: Well-nourished, well-developed Head: Normocephalic, atraumatic Eyes: Pupils equal and reactive, extraocular muscles intact Neck, supple, no lymphadenopathy Heart: Regular rate and rhythm Respiratory: No distress, rales in the bases Abdomen: Soft, nontender, nondistended, no peritoneal signs, rectal exam demonstrates a dark gross red blood Back: Nontender Extremities: Nontender, no edema, no cords Skin: Normal color no rash Neuro: Alert and oriented, no focal or lateralizing deficits Test Results: [] Emergency Department Course and Treatment: The patient had mild active bleeding on rectal exam. Initially, she was hypotensive on arrival. She was given a slight fluid bolus and was responsive. Her repeat blood pressure was 114/58. The patient has normal mentation. She is not tachycardic, but she is on beta-long. Screening labs do show recurrent anemia. Her hemoglobin is 6.4. This is a 2 g drop from labs that were done 6 days ago. The patient still has mild active bleeding, but is not grossly hemorrhaging. I did discuss the patient with Dr. Mcclain, but based on her recent hospitalization at [facility] and multiple comorbidities, it was thought that she would best be served back at a tertiary facility. Patient was started on a Protonix drip given history of duodenal ulcer and bleeding. The patient was discussed with Dr. Rowe at [facility] who excepted the patient transfer. She will be transferred to the intensive care unit. Treatment Plan: [] Disposition: Transfer Impression: 1. GI bleed 2. Symptomatic anemia This note was generated with [employer] dictation software. It may contain incorrect words, spelling, and punctuation that were not noted in review of the chart prior to signing ED Disposition - Plan for ED Patient: Chief Complaint: GI Bleed Referrals: Jyothi Weber [Primary Care Provider] -
[2018-02-23 10:30] LABS: Absolute Lymphocyte Count 0.79 X10^3/ul (0.83-4.51); Absolute Neutrophil Count 5.7 X10^3/uL (2.0-7.7); Basophil# 0.02 X10^3/uL; Basophil% 0.3 % (0-1); Eosinophil# 0.11 X10^3/uL; Eosinophils% 1.6 % (0-5); Hematocrit 21.3 % (37-47); Hemoglobin 6.4 g/dl (12.0-15.0); Lymphocyte # 0.79 X10^3/ul (4.0); Lymphocyte % 11.3 % (19-41); Mean Corpuscular Hgb 29.2 pg (27.0-32.0); Mean Corpuscular Volume 97.3 fL (81-99); Mean Platelet Vol. 11.4 fl (6.2-12.0); Monocyte# 0.37 X10^3/uL; Monocyte% 5.3 % (0-10); Neutrophil # 5.68 X10^3/uL (2.7-7.7); Neutrophil % 81.5 % (47-70); Platelet Count 189 K/mm3 (150-450); RBC Distribution Width CV 16.9 % (11.6-14.6); RBC Distribution Width SD 59.9 fl (35.1-43.9); Red Blood Count 2.19 M/mm3 (4.2-5.4)
[2018-02-23 10:31] LABS: POSITIVE COUNT NO; POSITIVE DIFFERENTIAL NO; POSITIVE MORPHOLOGY NO
[2018-02-23 10:38] LABS: International Normalized Ratio 1.2; Prothrombin Time (Protime)PT. 15.2 SECONDS (11.7-14.9)
[2018-02-23 10:39] LABS: Partial Thromboplast Time 36.8 Seconds (24.1-36.2)
[2018-02-23 10:49] LABS: ALB/GLOB Ratio 0.9 RATIO (0.9-2.4); AST(SGOT) 9 U/L (15-37); Alanine Aminotransfer ALT/SGPT 15 U/L (13-56); Albumin, Serum 3.1 g/dL (3.2-5.0); Alkaline Phosphatase 63 U/L (45-117); Anion Gap 8 (5-15); BUN 66 mg/dL (7-18); BUN/Creat Ratio 26.8 RATIO (10-20); Calcium,Total 8.3 mg/dL (8.5-10.1); Chloride 115 mmol/L (98-107); Creatinine, Serum 2.46 mg/dL (0.55-1.02); EST Glomerular Filtration Rate 20 mL/min (>60); Est Glom Filt Rate - Afr Amer 25 mL/min (>60); Estimated Creatinine Clearance 19.51 ml/min; Globulin 3.4 g/dL (2.2-4.2); Glucose 131 mg/dL (74-106); Potassium 4.9 mmol/L (3.5-5.1); Protein, Total 6.5 g/dL (6.4-8.2); Sodium Level 144 mmol/L (136-145)
[2018-02-23 10:59] LABS: Lactic Acid 2.1 mmol/L (0.4-2.0)
[2018-02-23] MEDS: 0.9% Normal Saline 1,000 ML 150 ML IV (11:10)
[2018-02-23 12:21] VITALS: BP 111/46; PULSE 79; RESP 20; TEMP 36.6; O2SAT 100
[2018-02-23 12:28] VITALS: BP 111/46; PULSE 75; RESP 18; O2SAT 100
[2018-02-23 12:31] VITALS: BP 110/51; PULSE 78; RESP 18; TEMP 36.6; O2SAT 100
[2018-02-23 12:36] VITALS: BP 112/51; PULSE 81; RESP 20; TEMP 36.6; O2SAT 99
--- NOTE | 2018-02-23 12:48 | ED.RN ---
PT TRANSFERRED TO [facility] WITH BLOOD PRODUCTS MAINTAINED DURING TRANSFER.
== END 2018-02-23 12:54 | disposition home or self-care (01) ==
PROVIDERS: Emergency Provider Emergency Medicine; Family Provider Nurse Practitioner; PCP Nurse Practitioner
DX: K92.1 Melena (principal); D62 Acute posthemorrhagic anemia; E66.9 Obesity, unspecified; Z68.43 Body mass index [BMI] 50.0-59.9, adult; I95.9 Hypotension, unspecified; I25.10 Atherosclerotic heart disease of native coro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 pectoris; I13.0 Hypertensive heart and chronic kidney disease with heart failure and stage 1 through stage 4 chronic kidney disease, or unspecified chronic kidney disease; E11.22 Type 2 diabetes mellitus with diabetic chronic kidney disease; N18.9 Chronic kidney disease, unspecified; I50.9 Heart failure, unspecified; E78.00 Pure hypercholesterolemia, unspecified; Z79.01 Long term (current) use of anticoagulants; Z79.899 Other long term (current) drug therapy
CPT/HCPCS: 71045; 80053; 83605; 84484; 85025; 85610; 85730; 86850; 86900; 86920; 93005; 96365; 96368; 99284; J7030; P9040; A4216; J3490

== ENCOUNTER → 2018-05-02 13:40 | Outpatient (CLI) | payer MEDICARE, OTHER, SELFPAY ==
--- NOTE | 2018-05-02 13:42 | ECHOD_ITS ---
Reason For Study: Murmur Procedure This was a 2D Doppler, Color Flow transthoracic echocardiogram. Exam performed in department. Left Ventricle Normal LV size. Moderate concentric left ventricular hypertrophy. Left ventricular systolic function is normal. The estimated ejection fraction is 55 %. Transmitral and pulmonary venous doppler flow suggestive of impaired relaxation of left ventricle. Transmitral diastolic flow velocities suggest severe (stage 3) diastolic dysfunction. No regional wall motion abnormalities noted. Right Ventricle Normal RV size. Normal systolic function. Atria The left atrium is moderately enlarged. The right atrium is moderately enlarged. Mitral Valve Normal mitral valve. Mild-Moderate (1-2+) eccentric mitral valve insufficiency. Tricuspid Valve Normal tricuspid valve. Moderately severe (3+) tricuspid valve insufficiency. Pulmonary artery systolic pressure is 75 mmHg. Severe pulmonary hypertension. Aortic Valve Trisinus/trileaflet aortic valve. Mild focal aortic valve calcification. Peak aortic valve gradient 72 mmHg. Mean aortic valve gradient 33 mmHg. Severe aortic stenosis. Mild (1+) eccentric aortic valve insufficiency. Pulmonic Valve Normal pulmonic valve. Great Vessels Normal aortic root. The pulmonary artery is normal size. Plethoric inferior vena cava. The inferior vena cava is dilated. Pericardium/Pleural No pericardial effusion. MMode/2D Measurements & Calculations LVIDd: 4.7 cm IVSd: 1.7 cm LVOT diam: 2.0 cm LVIDs: 3.3 cm LVPWd: 1.4 cm LVOT area: 3.0 cm2 RVDd: 5.0 cm FS: 29.9 % Ao root diam: 3.4 cm LAV(MOD-bp): 147.6 ml Aortic Valve Planimetry: 0.77 cm2 ACS: 0.70 cm LAV(MOD-bp) Indexed: 59.5 ml/m2 LA dimension: 5.1 cm LAV(MOD-sp2): 130.7 ml LAV(MOD-sp4): 152.8 ml LA A4 area: 37.5 cm2 RA A4 area: 31.8 cm2 Time Measurements MV dec time: 0.18 sec Doppler Measurements & Calculations MV E max luke: 136.7 cm/sec Lat Peak E' Luke: 11.9 cm/sec Med Peak E' Luke: 8.9 cm/sec MV A max luke: 33.7 cm/sec E/E' lat: 11.4 E/E' med: 15.3 MV E/A: 4.1 MV V2 max: 171.2 cm/sec MV P1/2t max luke: 171.2 cm/sec Ao V2 max: 426.8 cm/sec MV max P.7 mmHg MV P1/2t: 81.6 msec Ao max P.9 mmHg MV V2 mean: 74.9 cm/sec MV dec slope: 614.1 cm/sec2 Ao V2 mean: 264.2 cm/sec MV mean P.0 mmHg MVA(P1/2t): 2.7 cm2 Ao mean P.6 mmHg MV V2 VTI: 40.0 cm Ao V2 VTI: 117.4 cm MVA(VTI): 2.2 cm2 ALONSO(I,D): 0.76 cm2 ALONSO(V,D): 0.67 cm2 AI max luke: 387.1 cm/sec LV V1 max: 94.5 cm/sec SV(LVOT): 89.7 ml AI max P.0 mmHg LV V1 max P.6 mmHg AI dec slope: 266.9 cm/sec2 LV V1 mean P.5 mmHg AI P1/2t: 424.9 msec LV V1 mean: 75.3 cm/sec LV V1 VTI: 29.7 cm PA V2 max: 89.0 cm/sec TR max luke: 390.7 cm/sec TR max P.1 mmHg Interpretation Summary Normal LV size. Moderate concentric left ventricular hypertrophy. Left ventricular systolic function is normal. The estimated ejection fraction is 55 %. Transmitral diastolic flow velocities suggest severe (stage 3) diastolic dysfunction Mild-Moderate (1-2+) eccentric mitral valve insufficiency. Severe pulmonary hypertension. Severe aortic stenosis. Mild (1+) eccentric aortic valve insufficiency. Ordering Physician: Niraj Raymundo Referring Physician: Niraj Raymundo V Performed By: Dany Triplett RCS
== END ==
PROVIDERS: Family Provider Nurse Practitioner; PCP Nurse Practitioner; Visit Provider Internal Medicine Cardiovascular Disease
DX: I25.10 Atherosclerotic heart disease of native coro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 pectoris (principal)
CPT/HCPCS: 93306

== ENCOUNTER → 2018-05-23 08:54 | Outpatient (CLI) | payer MEDICARE, OTHER, SELFPAY ==
--- NOTE | 2018-05-23 08:56 | ECHOTEE_ITS ---
Reason For Study: Aortic Stenosis Medication MANA probe passed with minimal difficulty. No complications were noted. [place] Topical [place] given X4 metered doses orally. Versed 2 mg given slow IVP. Fentanyl 50 mcg given slow IVP. Performed a rapid injection of agitated mix of 9 cc saline and 1cc air to assess for atrial septal defect. Left Ventricle Normal LV size. Left ventricular systolic function is normal. The estimated ejection fraction is 60 %. No regional wall motion abnormalities noted. Right Ventricle Normal RV size. Mild global right ventricular systolic dysfunction. Atria Bubble contrast study negative for right to left interatrial shunt. Intact atrial septum. The left atrium is severely enlarged. No thrombus is detected in the left atrial appendage. The right atrium is severely enlarged. Mitral Valve Normal mitral valve. Moderately severe (3+) mitral valve insufficiency. Tricuspid Valve Normal tricuspid valve. Moderate (2+) tricuspid valve insufficiency. Aortic Valve Trisinus/trileaflet aortic valve. Moderate focal aortic valve calcification. Moderate aortic stenosis. Mild (1+) eccentric aortic valve insufficiency. Pulmonic Valve Normal pulmonic valve. Vessels Normal aortic root. Normal arch. The pulmonary artery is normal size. Pulmonary venous flow normal. Pericardium No pericardial effusion. Interpretation Summary Normal LV size. Left ventricular systolic function is normal. The estimated ejection fraction is 60 %. The left atrium is severely enlarged. The right atrium is severely enlarged. Moderate focal aortic valve calcification. Moderate aortic stenosis. Moderate reduction in aortic cusp seperation Ordering Physician: Niraj Raymundo Referring Physician: Niraj Raymundo V Performed By: Yanna Hankins RDCS
== END ==
PROVIDERS: Family Provider Nurse Practitioner; PCP Nurse Practitioner; Referring Provider Internal Medicine Cardiovascular Disease; Visit Provider Internal Medicine Cardiovascular Disease
DX: I25.10 Atherosclerotic heart disease of native coro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 pectoris (principal); K92.2 Gastrointestinal hemorrhage, unspecified; E78.5 Hyperlipidemia, unspecified; I10 Essential (primary) hypertension; I35.0 Nonrheumatic aortic (valve) stenosis; I34.0 Nonrheumatic mitral (valve) insufficiency; I36.1 Nonrheumatic tricuspid (valve) insufficiency; I27.29 Other secondary pulmonary hypertension; R06.02 Shortness of breath
CPT/HCPCS: 93312; 93320; 93325; J7030; A4216

== ENCOUNTER → 2018-08-05 07:15 | Outpatient (CLI) | payer MEDICARE, OTHER, SELFPAY ==
[2018-07-03 14:39] VITALS: BMI 48.9
[2018-07-31 14:09] VITALS: BMI 48.9
--- NOTE | 2018-08-05 07:19 | BI_ITS ---
MAMMOGRAPHY - BILATERAL SCREENING REASON FOR EXAM: Female, 73 years old. Routine annual screening examination. PERTINENT HISTORY: Non-contributory. TECHNIQUE: Digital bilateral breast kole (3D mammographic acquisition) in the CC and MLO projections. 2-D mediolateral oblique (MLO) and craniocaudad (CC) views of both breasts were obtained. CAD: Full Field Digital Mammography with Computer Added Detection was performed. COMPARISON: Comparison is made with prior study dated July 23, 2017 and July 27, 2016. FINDINGS: Breast Composition: There are scattered areas of fibroglandular density. There are no dominant masses or suspicious calcifications. Stable well-defined nodular density in the upper lateral portion of the right breast. Prior ultrasound demonstrated to be 2 small lymph nodes. No other significant abnormalities are identified. There has been no significant change since the prior study. BI/SCREENING MAMM (CAD), BILAT IMPRESSION: Stable bilateral screening mammogram. Yearly follow-up mammogram recommended. (A) ASSESSMENT CATEGORY: BIRADS Category 2: Benign. A letter regarding these results will be sent to the patient by the facility within 30 days. Approximately 10% of breast cancers are not detected by mammography. A normal mammogram should not delay biopsy of a clinically suspicious abnormality. [id number] Electronically Signed: Irvin Edwards MD at 8:51 EST Tel [phone], Service support ,
--- OUTSIDE RECORDS SUMMARY | 2018-11-06 11:58 | XMS RPT_ITS | Continuity of Care Document ---
:1945 Author Organization [facility] Address [facility] [address] Phone Care Team Providers Name Role Phone Sara Swartz CNP Unavailable Jarad Brittany RUIZ Gordo Unavailable Natalia Mccurdy Unavailable Mackenzie Blanton Unavailable Unavailable Long [employer] DEF[employer] CREWMEMBER, Mona Kemp Unavailable Unavailable Jayda Frias Unavailable Unavailable Alana Mathis Unavailable Unavailable Vishal Bradford Unavailable Unavailable Slarb [employer] DEF[employer] CREWMEMBER, Alana Unavailable Unavailable Unavailable Unavailable Problems Name Dates Details Abnormal mammogram (R92.8, 793.80) Status: Active Anasarca (R60.1, 782.3) Comments: resolved Status: Active Anemia, unspecified (D64.9, 285.9) Comments: Chronic low low iron to ER, got more lasix and now on 20mg lasix daily, getting rountine lab and iron per Dr. Thornerelated to diverticuli Status: Active Anticoagulated (Z79.01, V58.61) Comments: holding coumadin for thoracentesis to be done Sibilia January 22 Status: Active Aortic stenosis, mild (I35.0, 424.1) Comments: Stress echo done 09/10/16. 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 no cough , phlegm, wheeze Status: Active CKD (chronic kidney disease), stage III (N18.3, 585.3) Comments: Seeing Kaz, recent creat 1.75 Status: Active Coronary atherosclerosis of [place] coronary vessel (I25.10, 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 Viral Status: Active Deliveries (Parity) Comments: 1 Status: Active Diabetes mellitus type 2, uncontrolled, without complications (E11.65, 250.02) Comments: HBA1c 6.0(07/04)HBA1c 6.1( Was 6.0 10/04).A1c 5.5 with prn trajentatakes tradjenta 4- 5 X /month when going for a constitution party and eating sweetsFBS: once in a while 120-125 Status: Active Encounter for Medicare annual wellness exam (Z00.00, V70.0) Comments: MEDICARE PHYSICAL WITH ABNORMAL FINDINGS Z 00.01 Patient here for medical follow up as well as medicare physical. Went through all the medicare questions withthe patient and reveiwed all their medical p roblems.Breast exam:no masses, lumps, nodules.Axillary lymph nodes non palpable.No abnormal moles on physical examination.Whisper test: 3/3MMSE :30/30Depression screening negative.Reviewed all the labs with the patient.(CBC, CMP, lipid panel, TSH,, vitamin D, Vit B12,folate, HBA1c, UA)Mammogram: , will repeatBMD: 2015(could do only rt and left forearm as couldnt fit in machine because of w eightColonoscopy:2010 Faby, Mejia, saw him in 04/03, said repeat in 04/06Up to date with vaccinations.Does not need any medication refills.Make sure throw rugs are thin and rubber backed. Recommend chowdhury drail in bathroom.Denies falls in the last 6 months Counselled on diet and exercise.Patient has 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 of ip attorney and living will.( and daughter) Status: Active Essential hypertension with goal blood pressure less than 130/80 (I10, 401.9) Comments: off of lisinopril lasix 10meq ad , metorprolol and hydralazine.take bidBP at home: Has manual cuff at home, does not check Status: Active Gout (M10.9, 274.9) Comments: no issues Status: Active History of colon polyps (Z86.010, V12.72) Comments: Colonoscopy 2010 polyps, appt with Dr Hobbs 04/03, has TREE Status: Active Hypokalemia, gastrointestinal losses (E87.6, 276.8) Status: Active Hypoxia (R09.02, 799.02) Comments: prescribed oxygen by [facility] at discharge, will ask her to repeat pulse ox and walk to determine if need oxygen, Cpap Status: Active Iron deficiency anemia (D50.9, 280.9) Comments: Had embolization of vessel 2017 this has helped with acute decline of hemoglobin, Target ferritin >100 Tans sat >20,off of coumadin Sees Fadumo and getting IV iron Hb 11.1Fe 41 lowConsult ation Faby on 2010 colonoscopy revelaed polyp, gets Iron infusion by Dr. Garcia Status: Active Limb pain (M79.609, 729.5) Status: Active Lower extremity edema (R60.0, 782.3) Status: Active Lower extremity edema (R60.0, 782.3) Status: Active Lower GI bleed (K92.2, 578.9) Comments: Admitted to [place] with hemoglobin, 5.2 got 7 units of blood, was 8.7 on February 10, 2018,8.5 on Holly 18, 2018Admitted to [place] 03-19-18 with GI bleed last hemoglobin 03-19 is 8.4 Status: Active Lymphedema (I89.0, 457.1) [facility] Status: Active NH (myocardial infarction) (I21.9, 410.90) Comments: per elevated troponins in hospital, seeing rigoberto, to get cardiac cath when stable, will see Rigoberto SatJanuary 02 Status: Active Mild vitamin D deficiency (E55.9, 268.9) Status: Active Mixed dyslipidemia (E78.2, 272.2) Comments: keep working on diet and ex Status: Active Need for prophylactic vaccination and inoculation against influenza (Renamed from Need for immunization against influenza) (Z23, V04.81) Status: Active Nonsmoker (Z78.9, V49.89) Status: Active Nonsmoker (Z78.9, V49.89) Status: Active Nonsmoker (Z78.9, V49.89) Status: Active Nonsmoker (Z78.9, V49.89) Status: Active Nonsmoker (Z78.9, V49.89) Status: Active Nonsmoker (Z78.9, V49.89) Status: Active Obesity, morbid, BMI 50 or higher (E66.01, 278.01) Comments: 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 [employer] [facility] [employer] work Status: 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, 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) Comments: referCPAP since 2007Sibilia , sleep study spring 2015 Status: Active Osteopenia (M85.80, 733.90) Status: Active Other chronic nonalcoholic liver disease (K76.89, 571.8) Status: Active Plantar fascial fibromatosis (M72.2, 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) Status: Active Pneumococcal vaccination given (Z23, V06.6) Status: Active Pregnancies () Comments: 1 Status: Active Prophylactic vaccination against Streptococcus pneumoniae (Z23, V03.82) Status: Active Pulmonary hypertension (I27.20, 416.8) Comments: sees Leslie but cannot afford med, she will follow up with him/pulm currently on sildenafil Status: Active Renal insufficiency (Renamed from Renal function impairment) (N28.9, 593.9) Status: Active Restless leg syndrome (G25.81, 333.94) Status: Active SOB (shortness of breath) (R06.02, 786.05) Status: Active Unspecified Diagnosis Status: Active Unspecified Diagnosis Status: Active Unspecified Diagnosis Status: Active Valvular disease (I38, 424.90) Comments: Moderate foal aortic valve calcification Rt enlarged atreium Left atrium enlargement, Rigoberto sending to [facility] main campus for eval Status: Active Medications Name Dates Details Albuterol 90 MCG/ACT Inhalation Aerosol Solution Active 4 times a day as needed (90 MCG/ACT) Comments: Medication taken as needed. Calcium Citrate 500 MG Oral Capsule 1 (one) Capsule tid for 0 days Refills: 0 Ordered:27-Mar-2016 Jacinto Sheehan MD Start : 27-Mar-2016 Active CoQ10 100 MG Oral Capsule 1 (one) Capsule daily for 0 days Quantity: 30 {Capsule} Refills: 0 Ordered:20-May-2017 Tiffanihamiltongordo HENRY Sara Raymond BLADDER TRIMMER, Sara Mc Start : 20-May-2017 Active Furosemide 40 MG Oral Tablet 1 (one) Tablet daily for 0 days Quantity: 90 {Tablet} Refills: 3 Ordered:06-Mar-2018 Tia BLADDER TRIMMER, Sara Raymond BLADDER TRIMMER, Sara Mc Start : 06-Mar-2018 Active HydrALAZINE HCl 25 MG Oral Tablet 1 Tablet bid for 90 days Quantity: 180 {Tablet} Refills: 3 Ordered:10-Jun-2018 Tia CARL Sara Raymond BLADDER TRIMMER, Sara Mc Start : 10-Jun-2018 Active LANCETS (Miscellaneous) 1 (one) Misc daily for 0 days Quantity: 100 {Misc} Refills: 3 Ordered:31-Oct-2012 Ariane Hartman Start : 28-Jul-2012 Active Comments:Reli-On Lancets Magnesium Oxide 400 (240 Mg) MG Oral Tablet 1 (one) Tablet qd for 0 days Quantity: 60 {Tablet} Refills: 4 Ordered:31-Dec-2016 Tia CARL Sara Raymond BLADDER TRIMMER, Sara Mc Start : 31-Dec-2016 Active Metoprolol Tartrate 100 MG Oral Tablet 1 (one) Tablet bid for 90 days Quantity: 180 {Tablet} Refills: 3 Ordered:16-Apr-2018 Tia CARL Sara Raymond BLADDER TRIMMER, Sara Mc Start : 16-Apr-2018 Active Multivitamins Oral Capsule 1 (one) Capsule Capsule qd for 0 days Quantity: 30 {Capsule} Refills: 3 Ordered:26-Jun-2016 Jacinto Sheehan MD Start : 27-Mar-2016 Active Nitrostat 0.4 MG Sublingual Tablet Sublingual 1 (one) Tab Sublingual prn for 0 days Quantity: 10 {QS} Refills: 0 Ordered:31-Dec-2016 Tia HENRY, Sara Raymond CNP, Sara Mc Start : 31-Dec-2016 Active Pantoprazole Sodium 40 MG Oral Tablet Delayed Release 1 (one) Tablet qd for 0 days Quantity: 90 {Tablet} Refills: 3 Ordered:10-Jun-2018 Tia HENRY, Sara Raymond CNP, Sara Mc Start : 10-Jun-2018 Active Potassium Chloride ER 10 MEQ Oral Tablet Extended Release 1 Tablet qd for 0 days Quantity: 60 {Tablet} Refills: 0 Ordered:10-Jun-2018 Tia HENRY, Sara Raymond CNP, Sara Mc Start : 10-Jun-2018 Active Comments:when on furosemide Pravastatin Sodium 80 MG Oral Tablet 1 (one) Tablet qd for 90 days Quantity: 90 {Tablet} Refills: 2 Ordered:16-Apr-2018 Tia HENRY, Sara Raymond CNP, Sara Mc Start : 16-Apr-2018 Active RELION ULTIMA TEST (In Vitro Strip) 1 (one) Strip bid for 0 days Quantity: 100 {Strip} Refills: 3 Ordered:06-Aug-2012 Jarad Brittany Gordo Start : 06-Aug-2012 Active Comments:DX: 250.02 ROPINIRole HCl 0.25 MG Oral Tablet 1 tab Tablet q hs for 90 days Quantity: 90 {Tablet} Refills: 0 Ordered:10-Jun-2018 Tia HENRY, Sara Raymond CNP, Sara Mc Start : 10-Jun-2018 Active ROPINIRole HCl 0.25 MG Oral Tablet 1 tab Tablet q hs for 90 days Quantity: 90 {Tablet} Refills: 3 Ordered:10-Jun-2018 Tia HENRY, Sara Raymond CNP, Sara Mc Start : 10-Jun-2018 Active Sildenafil Citrate 20 MG Oral Tablet 1 (one) Tablet tid for 0 days Quantity: 90 {Tablet} Refills: 0 Ordered:07-Apr-2018 Tia HENRY, Sara Raymond CNP, Sara Mc Start : 07-Apr-2018 Active Comments:Dr Sibilia Symbicort 160-4.5 MCG/ACT Inhalation Aerosol 2 puffs bid for 0 days Refills: 0 Ordered:27-Mar-2016 Jacinto Sheehan MD Start : 27-Mar-2016 Active Vitamin D3 2000 UNIT Oral Capsule 2 caps qd for 0 days Refills: 0 Ordered:27-Mar-2016 Jacinto Sheehan MD Start : 27-Mar-2016 Active Amoxicillin 500 MG Oral Tablet 4 Tablet 1hr prior to dental procedure for 0 days Quantity: 4 {Tablet} Refills: 1 Ordered:15-Jan-2018 Vishal Bradford Start : 08-Sep-2014 End : 15-Jan-2018 Inactive Aspirin EC Low Dose 81 MG Oral Tablet Delayed Release 1 (one) Tablet DR daily for 0 days Quantity: 30 {Tablet} Refills: 0 Ordered:20-Sep-2017 Alana Lange LPN Start : 31-Dec-2016 End : 20-Sep-2017 Inactive CALCIUM, 1250MG (Oral Tablet) 1 Daily for 0 days Refills: 0 Ordered:31-Aug-2011 Ariane Hartman End : 31-Aug-2011 Inactive CEFTIN, 500MG (Oral Tablet) 1 (one) Tablet bid for 14 days Quantity: 28 {Tablet} Refills: 0 Ordered:04-Nov-2013 Sara Swartz CNP, CNP, Magaly Start : 04-Nov-2013 End : 18-Nov-2013 Inactive CEPHALEXIN, 500MG (Oral Tablet) 4 Before dental work for 0 days Refills: 0 Ordered:28-Jan-2009 Maral Krishnan End : 18-Jul-2007 Inactive Cipro 500 MG Oral Tablet daily (500 MG) Inactive COLCRYS, 0.6MG (Oral Tablet) 1 (one) Tablet(s) q 6hrs x1 day then bid x 10days for 10 days Quantity: 24 {Tablet} Refills: 1 Ordered:31-Aug-2011 Ariane Hartman Start : 21-Mar-2011 End : 31-Aug-2011 Inactive COLCRYS, 0.6MG (Oral Tablet) 1 Tablet q 1hr until diarrhea for 2 days Refills: 0 Ordered:03-May-2011 Tiffaniesa Sara HENRY CNP, Magaly Start : 01-May-2011 End : 03-May-2011 Inactive Comments:pt will use script from previous Health care provide r DOXYCYCLINE HYCLATE, 100MG (Oral Capsule) 1 (one) Capsule bid for 14 days Quantity: 28 {Capsule} Refills: 0 Ordered:04-Nov-2013 Tia HENRY, Sara Raymond CNP, Sara Mc Start : 04-Nov-2013 End : 18-Nov-2013 Inactive Comments:take with food Ferrous Sulfate 325 (65 Fe) MG Oral Tablet Delayed Release 1 (one) Tablet DR tid for 30 days Quantity: 90 {Tablet} Refills: 3 Ordered:06-Mar-2018 Tia HENRY, Sara Raymond CNP, Sara Mc Start : 06-Dec-2017 End : 06-Mar-2018 Inactive Guaifenesin-Codeine 100-10 MG/5ML Oral Syrup 1 (one) Syrup 5ml as needed for 0 days Quantity: 1 {QS} Refills: 0 Ordered:20-Sep-2017 Alana Lange LPN Start : 31-Dec-2016 End : 20-Sep-2017 Inactive Comments:Medication taken as needed. KEFLEX, 500MG (Oral Capsule) 1 Capsule bid for 7 days Quantity: 14 {Capsule} Refills: 0 Ordered:25-Dec-2011 Mona Merritt LPN Start : 11-Dec-2011 End : 18-Dec-2011 Inactive Comments:Take probiotic Lasix 20 MG Oral Tablet 1 (one) Tablet daily for 90 days Quantity: 180 {Tablet} Refills: 3 Ordered:13-Feb-2018 Alana Lange LPN Start : 31-Dec-2016 End : 13-Feb-2018 Inactive LevoFLOXacin 500 MG Oral Tablet 1 (one) Tablet Tablet daily for 10 days Quantity: 10 {Tablet} Refills: 0 Ordered:06-Aug-2017 Alana Lange LPN Start : 06-Aug-2017 End : 16-Aug-2017 Inactive MetOLazone 5 MG Oral Tablet 1 (one) Tablet Tablet take 1/2 hr before am lasix dose x 3 days for 0 days Quantity: 10 {Tablet} Refills: 0 Ordered:11-Feb-2018 TUSHAR Gilbert Start : 21-Jan-2018 End : 11-Feb-2018 Inactive Comments:ok to dispense #10 NIACIN ER, 500MG (Oral Capsule Extended Release) 4 Capsule ER qd for 0 days Refills: 0 Ordered:30-Jan-2013 Ariane Hartman Start : 18-Jul-2007 End : 30-Jan-2013 Inactive Potassium Chloride ER 10 MEQ Oral Tablet Extended Release 2 (two) Tablet daily while on lasix for 0 days Quantity: 60 {Tablet} Refills: 3 Ordered:29-Jan-2018 Tia HENRY, Sara Raymond CNP, Sara Mc Start : 21-Jan-2018 End : 29-Jan-2018 Inactive PredniSONE 10 MG Oral Tablet 1 Tablet TAD for 0 days Quantity: 18 {Tablet} Refills: 0 Ordered:20-Sep-2017 Alana Lange LPN Start : 08-Aug-2017 End : 20-Sep-2017 Inactive Comments:30mg x 3 days, 20mg x 3 days,10mg x 3 days Rhinocort Allergy 32 MCG/ACT Nasal Suspension 2 (two) Brandywine In each nostril Daily for 1 days Quantity: 1 {Bottle} Refills: 0 Ordered:19-Nov-2016 Kaykay Layne Start : 15-Nov-2016 End : 16-Nov-2016 Inactive Tradjenta 5 MG Oral Tablet 1 Tablet qd, prn for 0 days Quantity: 30 {Tablet} Refills: 0 Ordered:11-Feb-2018 TUSHAR Gilbert Start : 27-Mar-2016 End : 11-Feb-2018 Inactive Uloric 80 MG Oral Tablet 1 (one) Tablet qd for 0 days Quantity: 6 {Box} Refills: 0 Ordered:11-Feb-2018 TUSHAR Gilbert Start : 06-Dec-2017 End : 11-Feb-2018 Inactive ULORIC, 40MG (Oral Tablet) 1 Tablet daily for 0 days Quantity: 30 {Tablet} Refills: 3 Ordered:10-Jul-2011 Maxwell Navas Start : 04-Jul-2011 End : 10-Jul-2011 Inactive VENTOLIN HFA, 108 (90 Base)MCG/ACT (Inhalation Aerosol Solution) 2 (two) Aerosol Soln Q 6hr/ for 0 days Quantity: 1 {Aerosol_Soln} Refills: 0 Ordered:31-Aug-2011 Ariane Hartman Start : 09-Jun-2009 End : 31-Aug-2011 Inactive VICODIN ES, 7.5-750MG (Oral Tablet) 1 (one) Tablet q6hrs prn pain for 0 days Quantity: 30 {Tablet} Refills: 0 Ordered:31-Aug-2011 Ariane Hatrman Start : 27-Dec-2009 End : 31-Aug-2011 Inactive VITAMIN D, 400UNIT (Oral Capsule) 1-2 Capsule a day for 0 days Refills: 0 Ordered:31-Aug-2011 Ariane Hartman Start : 28-Apr-2008 End : 31-Aug-2011 Inactive VYTORIN, 10-10MG (Oral Tablet) 1 (one) Tablet qd for 90 days Quantity: 90 {Tablet} Refills: 3 Ordered:04-Nov-2013 Alice Moore LPN Start : 08-Sep-2013 End : 04-Nov-2013 Inactive Warfarin Sodium 1 MG Oral Tablet 1 (one) Tablet Tablet UAD for 0 days Quantity: 30 {Tablet} Refills: 0 Ordered:11-Feb-2018 TUSHAR Gilbert Start : 23-Sep-2017 End : 11-Feb-2018 Inactive Warfarin Sodium 5 MG Oral Tablet uad Tablet qd for 30 days Quantity: 90 {Tablet} Refills: 2 Ordered:11-Feb-2018 TUSHAR Gilbert Start : 17-Oct-2017 End : 11-Feb-2018 Inactive ZETIA, 10MG (Oral Tablet) 1 (one) Tablet Daily for 0 days Quantity: 30 {Tablet} Refills: 3 Ordered:31-Aug-2011 Ariane Hartman Start : 07-Jan-2009 End : 31-Aug-2011 Inactive AMOXIL, 500MG (Oral Tablet) 4 Tablet 1 hour prior for 0 days Quantity: 4 {Tablet} Refills: 2 Ordered:09-Sep-2009 Tia HENRY, Sara Raymond CNP, Magaly Start : 09-Sep-2009 End : 21-Sep-2010 Discontinued Comments:This order discontinued per [facility]. CARTIA XT, 180MG (Oral Capsule Extended Release 24 Hour) 1 Capsule ER 24HR bid for 90 days Quantity: 180 {Capsule_ER_24HR} Refills: 3 Ordered:10-Dec-2014 Ariane Hartman Start : 08-Sep-2013 End : 10-Dec-2014 Discontinued COLCHICINE, 0.6MG (Oral Tablet) 1 (one) Tablet q 6 hours today then bid for 0 days Quantity: 20 {Tablet} Refills: 0 Ordered:01-Nov-2010 Ariane Hartman Start : 24-Aug-2008 End : 21-Mar-2011 Discontinued Comments:This order discontinued per [facility]. COLCHICINE-PROBENECID, 0.5-500MG (Oral Tablet) 1 Tablet q1 hr till diarrhea for 0 days Quantity: 30 {Tablet} Refills: 0 Ordered:01-May-2011 Tia BLADDER TRIMMER, Sara Raymond BLADDER TRIMMER, Sara Mc Start : 01-May-2011 End : 01-May-2011 Discontinued CO-Q 10 [place]-3 Fish Oil Oral Capsule 1 (one) Capsule daily for 360 days Refills: 0 Ordered:20-May-2017 Jayda Frias Start : 04-Nov-2013 End : 20-May-2017 Discontinued Coumadin 1 MG Oral Tablet 1 (one) Tablet daily uad for 90 days Quantity: 90 {Tablet} Refills: 3 Ordered:21-Dec-2016 Alana Lange LPN Start : 03-Sep-2016 End : 21-Dec-2016 Discontinued Comments:generic DULERA, 100-5MCG/ACT (Inhalation Aerosol) 2 puffs bid (100-5 MCG/ACT) End : 19-Sep-2015 Discontinued FOSAMAX, 70MG (Oral Tablet) 1/2 Tablet QW for 0 days Quantity: 4 {Tablet} Refills: 3 Ordered:01-Nov-2009 Brittany Abraham DO Start : 01-Nov-2009 End : 01-Nov-2009 Discontinued GLUCOPHAGE XR, 500MG (Oral Tablet Extended Release 24 Hour) 2 (two) Tablet ER 24HR q tanmay meal for 90 days Quantity: 180 {Tablet_ER_24HR} Refills: 3 Ordered:07-Jul-2012 Brittany Abraham DO Start : 07-Jul-2012 End : 07-Jul-2012 Discontinued HydroCHLOROthiazide 25 MG Oral Tablet 1 tab daily for 0 days Refills: 0 Ordered:21-Dec-2016 Alana Lange LPN Start : 27-Mar-2016 End : 21-Dec-2016 Discontinued KLOR-CON M20, 20MEQ (Oral Tablet Extended Release) 1/2 Tablet ER qd for 0 days Quantity: 45 {Tablet_ER} Refills: 3 Ordered:14-Feb-2011 Brittany Abraham DO Start : 14-Feb-2011 End : 14-Feb-2011 Discontinued KLOR-CON, 20MEQ (Oral Packet) 1tab qod, 2 tabs qod Packet qd for 0 days Quantity: 30 {Packet} Refills: 3 Ordered:13-Oct-2007 Maral Krishnan Start : 13-Oct-2007 End : 17-Nov-2007 Discontinued LANOXIN, 125MCG (Oral Tablet) 1/2 Tablet daily for 0 days Quantity: 45 {Tablet} Refills: 3 Ordered:10-Dec-2014 Ariane Hartman Start : 08-Sep-2013 End : 10-Dec-2014 Discontinued Lasix 40 MG Oral Tablet 1 (one) Tablet bid x 3 days for 0 days Quantity: 6 {Tablet} Refills: 0 Ordered:21-Jan-2018 Jayda Frias Start : 15-Jan-2018 End : 21-Jan-2018 Discontinued Lisinopril 10 MG Oral Tablet 1 (one) Tablet daily for 90 days Quantity: 90 {Tablet} Refills: 2 Ordered:10-Jun-2018 Mackenzie Blanton Start : 06-Mar-2018 End : 10-Jun-2018 Discontinued Lisinopril 10 MG Oral Tablet 1 (one) Tablet daily for 90 days Quantity: 90 {Tablet} Refills: 0 Ordered:10-Jun-2018 Mackenzie Blanton Start : 06-Mar-2018 End : 10-Jun-2018 Discontinued LOPRESSOR, 50MG (Oral Tablet) 1 1/2 tabs Tablet BID for 0 days Refills: 0 Ordered:13-Oct-2007 Maral Krishnan Start : 13-Oct-2007 End : 13-Oct-2007 Discontinued NIASPAN, 500MG (Oral Tablet Extended Release) 2 Daily for 0 days Refills: 0 Ordered:28-Jan-2009 Maral Krishnan End : 14-May-2006 Discontinued Potassium Chloride ER 10 MEQ Oral Capsule Extended Release 1 (one) Capsule daily while on bid lasix for 0 days Quantity: 10 {Capsule} Refills: 0 Ordered:21-Jan-2018 Jayda Frias Start : 15-Jan-2018 End : 21-Jan-2018 Discontinued PROAIR HFA, 108 (90 Base)MCG/ACT (Inhalation Aerosol Solution) 2 (two) Puff tid for 0 days Quantity: 1 {Inhaler} Refills: 0 Ordered:08-Dec-2013 Ariane Hartman Start : 20-Nov-2013 End : 08-Dec-2013 Discontinued Vitamin C 500 MG Oral Tablet 2 (two) Tablet BID for 0 days Quantity: 120 {Tablet} Refills: 0 Ordered:10-Jun-2018 Mackenzie Blanton Start : 20-May-2017 End : 10-Jun-2018 Discontinued VITAMIN D, 92187BYOW (Oral Capsule) 1 (one) Capsule q week for 0 days Quantity: 12 {Capsule} Refills: 0 Ordered:03-Feb-2010 Ariane Hartman Start : 03-Feb-2010 End : 31-Aug-2011 Discontinued Comments:This order discontinued per [facility]. VYTORIN, 10-20MG (Oral Tablet) 1 Tablet QD for 0 days Refills: 0 Ordered:18-Apr-2007 Maral Krishnan Start : 18-Apr-2007 End : 18-Apr-2007 Discontinued Comments:per dr. yoon Allergies and Adverse Reactions Name Dates Details No Known Allergies (Allergy) Onset: 06-Aug-2017 Status: Active No Known Drug Allergies (Allergy) Status: Active Past Medical History Name Dates Details Abnormal blood chemistry (R79.9, 790.6) Status: Resolved as of 11-Feb-2018 Abnormal blood finding (R79.9, 790.99) Status: Resolved as of 11-Feb-2018 Abnormal glucose tolerance test (R73.02, 790.22) Status: Resolved as of 11-Feb-2018 Abnormal lung sounds (R09.89, 786.7) Status: Resolved as of 11-Feb-2018 Acute CHF (I50.9, 428.0) Status: Resolved as of 11-Feb-2018 Acute renal failure (N17.9, 584.9) Comments: secondary to sepsis, dehyrdation, and ? NH now improving was 2.05 now 1.[address] Mccurdy, now creat is at baseline, of 1.2 on 05-23, ok per Dr. Mccurdy for me to follow Status: Inactive as of 20-Sep-2017 BMI 35.0-35.9,adult (Z68.35, V85.35) Status: Resolved as of 11-Feb-2018 BMI 45.0-49.9, adult (Z68.42, V85.42) Status: Resolved as of 11-Feb-2018 BMI 50.0-59.9, adult (Z68.43, V85.43) Status: Inactive as of 20-Sep-2017 BMI 60.0-69.9, adult (Z68.44, V85.44) Status: Resolved as of 11-Feb-2018 Body aches (R52, 780.96) Status: Resolved as of 11-Feb-2018 Bronchitis (J40, 490) Status: Resolved as of 08-Dec-2013 Cerumen impaction (H61.20, 380.4) Status: Resolved as of 11-Jul-2009 COPD with acute exacerbation (Renamed from Acute exacerbation of chronic obstructive airways disease) (J44.1, 491.21) Status: Resolved as of 11-Feb-2018 Cough (R05, 786.2) Status: Resolved as of 11-Feb-2018 Diabetes mellitus type II, controlled (E11.9, 250.00) Comments: still on tragenta not tolerate metformin Status: Resolved as of 11-Feb-2018 Encounter for immunization (Z23, V03.89) Status: Inactive as of 14-Feb-2011 Encounter for screening mammogram for breast cancer (Renamed from Encounter for screening mammogram for malignant neoplasm of breast) (Z12.31, V76.12) Status: Resolved as of 11-Feb-2018 Fever and chills (R50.9, 780.60) Status: Resolved as of 11-Feb-2018 Hemoptysis (R04.2, 786.30) Comments: coumadin vs pul edema, vs CHF it is pneumonia Status: Resolved as of 08-Dec-2013 Hypercalcemia (E83.52, 275.42) Status: Resolved as of 09-May-2010 Hyperkalemia (E87.5, 276.7) 14-Feb-2011 Comments: had K of 5.9, on 12-19-16 was told to stop lisinopril and repeat lab on Saturday will decide if need to restart Status: Inactive as of 10-Jun-2018 Knee pain (M25.569, 719.46) Comments: in past had xray, arthritis will monitor Status: Resolved as of 11-Feb-2018 Migraine (G43.909, 346.80) Status: Inactive as of 11-Jul-2009 Need for prophylactic vaccination and inoculation against influenza (Z23, V04.81) Status: Inactive as of 08-Dec-2013 Need for prophylactic vaccination and inoculation against influenza (Renamed from Need for immunization against influenza) (Z23, V04.81) Status: Resolved as of 11-Feb-2018 Pain in joint involving ankle and foot, unspecified laterality (M25.579, 719.47) Status: Resolved as of 09-May-2010 Pneumonia (J18.9, 486) Comments: rt with increased repeat chest xray in [address] of chest Status: Resolved as of 08-Dec-2013 Post-nasal drainage (R09.82, 473.9) Status: Resolved as of 11-Feb-2018 screening Status: Resolved as of 11-Feb-2018 screening Status: Inactive as of 14-Feb-2011 screening Status: Inactive as of 08-Dec-2013 screening Status: Inactive as of 08-Dec-2013 Screening for breast cancer (Z12.39, V76.10) Status: Inactive as of 08-Dec-2013 Screening for malignant neoplasm of cervix (Z12.4, V76.2) Status: Inactive as of 14-Feb-2011 Sepsis (A41.9, 038.9) Comments: due to urosepsis, ecoli, hospitalized 3-4 days resolved Status: Resolved as of 11-Feb-2018 Shortness of breath (R06.02, 786.05) Comments: worsening on 20mg lasix once daily, unable to weigh, edema to thighs. Status: Resolved as of 11-Feb-2018 Shoulder pain (M25.519, 719.41) Comments: improved - continue on home exercise regimen Status: Resolved as of 11-Jul-2009 Swelling of ankle and foot joint (719.07) Status: Resolved as of 11-Feb-2018 Unspecified Diagnosis Status: Resolved as of 11-Feb-2018 Unspecified Diagnosis Status: Resolved as of 11-Feb-2018 Unspecified Diagnosis Status: Inactive as of 14-Feb-2011 Unspecified Diagnosis Status: Inactive as of 08-Dec-2013 Unspecified Diagnosis Status: Inactive as of 08-Dec-2013 Unspecified Diagnosis Status: Inactive as of 08-Dec-2013 Unspecified Diagnosis Status: Inactive as of 08-Dec-2013 Unspecified Diagnosis Status: Inactive as of 14-Feb-2011 Vertigo (R42, 780.4) Status: Resolved as of 11-Feb-2018 Walking pneumonia (J18.9, 486) Status: Resolved as of 11-Feb-2018 Wheeze (R06.2, 786.07) Status: Resolved as of 08-Dec-2013 Procedures Procedure Dates Details Appendectomy Completed Hysterectomy, Total Completed R Foot Completed Comments: 1980s Date Value Details 27-May-2018 Oncology Visit Report Result: Comments: See Note; NOTES: [facility] [place] [place] [address] OFFICE VISIT Date of Service: 05/27/18 1342 MR#: [id number] Acct: [id number] Name: GABBI ROLLE Rep #: [id number] : 1945 From: Halley Khan MD Age/Sex: 73/F Location: [facility] Status: Signed - Problem List (1) Anemia Status: Chronic Qualifiers: Anemia type: unspecified type Qualified C ode(s): D64.9 - Anemia, unspecified (2) Iron deficiency anemia Status: Chronic Qualifiers: Iron deficiency anemia type: chronic blood loss Qualified Code(s): D50.0 - Iron deficiency anemia secondary to blood loss (chronic) (3) CRF (chronic renal failure) Status: Chronic Qualifiers: Chronic kidney disease stage: stage 3 (moderate) Qualified Code(s): N18.3 - Chronic kidney disease, stage 3 (moderate) (4) Anemia in chronic kidney disease (CKD) Status: Chronic - Date of Service Date of Service:: 05/27/18 - Chief Complaint Anemia - History of Present Illness Patient is a 72-year-old female with a past medical history notable for morbid obesity diabetes chronic renal failure hypertension chronic atrial fibrillation on long-term anticoagulation (had to be held in 2018) and chronic and episodic acu te GI blood loss (GI nuclear scan January 2018 reported:2 separate foci of active extravasation (active bleeding) of radiotracer located in the stomach and in the upper ascending colon.) She had been on or al iron supplement averaging 1-3 (usually 2/d) tablets daily for the past few years . She has received IV iron since 2017 and needed blood transfusion on several occasions for severe symptomatic anemia. Her Coumadin anticoagulation had to be held due to increasing GI blood loss despite the fact that she is at an increased risk for cerebrovascular events from chronic atrial fibrillation. Her oral iron supplement was discontinued in 2018 to allow for monitoring of GI bleeding. Her anemia has responded in the past to oral and intravenous iron but tends to recur rapidly. February 2018 she presented with y et another episode of acute on chronic GI bleed and was urgently transferred to [facility] where she underwent a nuclear medicine GI blood loss imaging followed by angiography and embolization of a bleeding artery. - Past Medical/Social History Past Medical History Past Medical History: Anemia,Bleeding disorder,Blood transfusion, Diabetes mellitus,Diverticulitis,Edema,GI bleed, Heart diseas e,Hyperlipidemia,Hypertension,Liver disease,Obesity,Osteopenia,Pneumonia, Postmenopausal,Vitamin D deficiency,Fatigue Other Past Medical History: PULMONARY HYPERTENTION UTI (SEPTIC) GIB Past Surgical H istory Surgical: Appendectomy,Hysterectomy Other Surgical History: RIGHT FOOT SURGERY 1985 Family History Paternal Past Medical History: Heart disease Maternal Past Medical History: Unknown Maternal History of Cancer: Uterine cancer Social History Social History: No changes Smoking Status Never smoker Review of Systems Constitutional:: Reports: Weakness, Fatigue, - - Overall I feel be tter since the last embolization Cardiovascular:: Reports: Dyspnea on exertion Respiratory: Reports: Shortness of breath upon exertion Gastrointestinal:: Reports: Melena - Stools were dark on 2 days in the past month Genitourinary: Denies: Hematuria Neurological:: Denies: Headache, Dizziness, Visual changes, Tinnitus, Hearing loss Vital Signs Height 5 ft 7 in Weight: 147.50 8 kg Weight in Pounds 325.2 lbs Pulse Ox 94 - Physical Exam General: Alert, Oriented x3, No apparent distress, - - Morbidly Obese. Laboratory Data: Laboratory Tests RBC Hgb Hct 35.7 L Iron Saturati on 5.6 L 12.8 L Ferritin 46 RBC 2.84 L Hgb 8.2 L 8.3 L Hct 27.9 L Iron Saturation 21.2 Ferritin 32 RBC Hgb 7.1 L 7.3 L 7.6 L Hct Iron Saturation Ferritin RBC Hgb 7.4 L 6.8 L 8.4 L Hct Iron Saturation Ferritin RBC Hgb 7.9 L 9.2 L Hct 31.4 L Iron Saturation 10.4 L Ferritin 43 RBC Hgb 8.2 L 9.2 L Hct 27.7 L Iron Saturation 19.7 Ferritin 69 RBC Hgb 5.7 L* 8.5 L Hct 18.8 L Iron Saturation 26.7 Ferrit in 109 RBC Hgb 6.4 L 8.5 L Hct 21.3 L 28.7 L Iron Saturation 13.0 L Ferritin 60 RBC Hgb 8.2 L 8.8 L Hct 27.6 L 30.3 L Iron Saturation 12.7 L Ferritin 54 RBC Hgb Hct 30.9 L Iron Saturation 31.9 11.8 L Ferritin 135 44 RBC Hgb 9.7 L Hct 29.7 L 32.2 L Iron Saturation 13.4 L Ferritin 55 Assessment and Plan 72-year-old female with chronic recurring anemia most consistent with multiple factors includi n. Chronic recurrent iron deficiency anemia due to chronic and acute episodes of GI blood loss Despite oral iron supplementation (group home), . Patient was transfused with packed red cells on sever al occasions for severe symptomatic anemia and required IV iron. She does respond but tends to recur despite repeated IV iron infusions. Target ferritin (over 100) and transferrin saturation (over 20%) and presence of chronic diseases including chronic kidney insufficiency February 23, 2018 underwent angiography and embolization of a bleeding vessel. Her H AND H and iron studies showed less dramatic fluctu ations since but overall there is a slower decline and iron studies suggestive of ongoing but to a much lesser extent chronic blood loss. Will continue to supplement with IV iron and reassess in 1 month . 2. Anemia of chronic renal failure. With correction of her iron deficiency anemia her hematocrit tends to be at 30% or above therefore she is not a candidate for erythrocyte stimulating agent therapy for anemia of chronic kidney failure at present. 3. Anemia due to polypharmacy and minor contributor but expected side effect. 4. Worsening of her chronic GI blood loss can be attributed to Coumadin anticoagulation on top of colonic pathology . Anticoagulation has been discontinued 2018 Patient was seen was her impression and plan discussed. Medications: Prescriptions This Visit Medicat ion Instructions Recorded Ipratropium/Albuterol Sulfate 2 puff IH Q4H PRN PRN 01/03/18 [Combivent Respimat Inhal Brandywine] Furosemide [Lasix] 40 mg PO BID 01/15/18 Primary Care Provider: Sara Swartz [facility] Provider: Halley Khan MD 05/27/18 1411 <Electronically signed by Halley Khan MD> Date Halley Khan MD Cosigner Signature: Date (if applicable) CC: 26-May-2018 Cardiology Visit Report Result: Comments: See Note; NOTES: [facility] [address] [place] [address] OFFICE VISIT Date of Service: 05/26/18 MR#: [id number] Acct: [id number] Name: GABBI ROLLE Rep #: [id number] : 1945 Provider: Niraj Raymundo MD Age/Sex: 73/F Location: [facility] [place] Status: Signed HPI HPI Chief Complaint: Follow up Details: GABBI ROLLE, is a 73 F who presents to the office today for a follow-up visit. She is a lady with a history of chronic persistent atrial fibrillation, valvular heart disease with mitral valve regurgitation and aortic stenosis and minimal coronary hilaria ry disease. She also has a history of severe, pulmonary hypertension, obesity, and obstructive sleep apnea. She has had recurrent GI bleeds unfortunately and has been admitted to the hospital 5 times si nce the spring. She has had a total of approximately 19 units of blood transfusion as well as has been getting iron infusions. She was recently taken off all her anticoagulation due to the recurrence of the above. She has had no dizziness or lightheadedness no maggie syncopal episodes. She continues to see the plasterer helper for follow-up of her blood work. She presented to the hospital with shortness of breath and as part of her workup she underwent an echocardiographic evaluation which demonstrated preserved ejection fraction of 55%, stage III diastolic dysfunction, moderate 2+ mitral regurgitation, moderately severe 3+ tricuspid regurgitation with pulmonary systolic pressures of 75 mmHg. Her aortic valve also demonstrated severe aortic stenosis with mild aortic regurgitation. She went on to have a transesophageal echocardiogram which corroborated the above. She is here for discussion regarding the above. Her physical exam today demonstrates clear lung rodriguez mild pallor irregular rate and rhythm a 2/6 harsh systolic murmur noted left sternal border and no pedal edema. Intake Vital Signs05/26/18 Height 5 ft 7 in 05/26/18 Weight: 317 lb 05/26/18 Body Mass Index (BMI) 49.6 05/26/18 Blood Pressu re 134/66 H 05/26/18 Respiratory Rate 18 05/26/18 Pulse Rate 66 Intake Visit Reasons: f/up to YOU[facility] Allergies No Known Allergies Allergy (Verified 05/26/18 14:57) Medications Ascorbic Acid [Vitamin C] 1,000 mg PO BID 04/02/18 [History Confirmed 05/26/18] Calcium Citrate 500 mg PO BID 11/18/17 [History Confirmed 05/26/18] Cholecalciferol (Vitamin D3) [Vitamin D3] 2,000 unit PO BID 11/18/17 [Histor y Confirmed 05/26/18] Magnesium Oxide [Magnesium] 400 mg PO DAILY 11/18/17 [History Confirmed 05/26/18] Metoprolol Tartrate [Lopressor (beta long)] 100 mg PO BID 11/18/17 [History Confirmed 05/26/18] Multivitamin [Daily Multiple Vitamin] 1 ea PO DAILY 11/18/17 [History Confirmed 05/26/18] Pravastatin Sodium 80 mg PO QHS 11/18/17 [History Confirmed 05/26/18] Ropinirole HCl [Requip] 0.25 mg PO QHS [History Confirmed 05/26/18] Sildenafil Citrate [Revatio] 20 mg PO TID 11/18/17 [History Confirmed 05/26/18] Ubidecarenone [Coenzyme Q-10] 100 mg PO DAILY 11/18/17 [History Confirmed 05/26/18] hy drALAZINE [Apresoline] 25 mg PO BID 11/18/17 [History Confirmed 05/26/18] Ipratropium/Albuterol Sulfate [Combivent Respimat Inhal Brandywine] 2 puff IH Q4H PRN PRN 01/03/18 [History Confirmed 05/26/18] Furos emide [Lasix] 40 mg PO BID 01/15/18 [History Confirmed 05/26/18] Potassium Chloride [K-Dur] 40 meq PO DAILY #60 tab 01/27/18 [Rx Confirmed 05/26/18] pantoprazole 40 mg tablet,delayed release 40 mg PO BI D 02/13/18 [History Confirmed 05/26/18] Budesonide/Formoterol Fumarate [Symbicort 160-4.5 Mcg Inhaler] 2 puff IH BID 02/23/18 [History Confirmed 05/26/18] febuxostat 80 mg tablet 80 mg PO PRN PRN [History Confirmed 05/26/18] PFSH Medical History Atherosclerotic heart disease of [place] coro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 pectoris (Chronic) Chronic atrial fibrillation (Chronic) GI bleed (Acute) Hyperkalemia (Chronic) HLD (hyperlipidemia) (Chronic) HTN (hypertension) (Chronic) Non-ST elevation (NSTEMI) myocardial infarction (Chronic) Nonrheumatic a ortic (valve) stenosis (Chronic) Nonrheumatic mitral (valve) insufficiency (Chronic) Nonrheumatic tricuspid (valve) insufficiency (Chronic) Other secondary pulmonary hypertension (Chronic) SOB (shortnes s of breath) (Chronic) Anemia (Acute) Arthritis (Acute) Bloody stool (Acute) Diabetes (Acute) Diverticulitis (Acute) Fatigue (Acute) Heart attack (Acute) Heart disease (Acute) History of GI bleed (Acute ) History of blood transfusion (Acute) History of hysterectomy (Acute) History of pneumonia (Acute) Kidney disease (Acute) Knee pain (Acute) Liver disease (Acute) Obesity (Acute) Osteopenia (Acute) Pulm onary hypertension (Acute) Sepsis (Acute) Sepsis secondary to UTI (Acute) Surgical History History of appendectomy (Acute) Status post right foot surger y (Acute) History of left heart catheterization (LHC) (Resolved) Family History Mother , age 83 Uterine cancer Hypertension Father , age 81 Heart disease Diabetes CAD (coronary artery disease) Hypertension Social History Smoking Status: Never smoker alcohol intake: never substance use type: does not use caffeine: No what type of physic al activity do you participate in: none seatbelt use: always do you feel safe at home: Yes ROS Const Const: Negative for fatigue, weakness, difficulty sleeping, frequent falls, excessive sweating or headache(s) Eyes Eyes: Negative for loss of peripheral vision, transient loss of vision, blurry vision, tunnel vision or double vision ENT ENT: Negative for headache(s), dizziness, Nosebleed/epistaxis or balance problems Cardio Chest Pain: No Palpitations: No Edema: None Muscle aches with walking: None Resp Respiratory: Positive for SOB with activity; negative for SOB at rest, SOB orthopnea\SOB lying down, paroxysmal nocturnal dyspnea or Cough GI GI: Negative nausea, heartburn, black,tarry stools or vomiting : Negative for hematuria Musc Musc: Negative for balance problems, muscle aches/ myalg ia, muscle weakness or joint pain Skin Skin: Negative non-healing lesions, unusual bruising or rash Neuro Neuro: Negative for weakness, frequent falls, headache(s), blurry vision, double vision, dizzine ss, lightheadedness, orthostatic symptoms, near syncope, syncope or lack of coordination Omer Hematologic/Lymphatic: Negative for easy bruising or easy bleeding Endo Endo: Negative for fatigue, excessiv e sweating or increased thirst/drinking Psych Psych: Negative for anxiety or depression Allergy Allergy/Immunology: Negative for hives, Negative for rash Cardiology Exam Const Appearance: cooperative, healthy appearing, well developed, well groomed and no acute distress Nutritional Appearance: well nourished and average body habitus Orientation: alert, awake and oriented x3 Head Head: normal to insp ection, normocephalic and atraumatic Ears: hearing grossly normal bilaterally and external ears normal Nose: external nose normal, nasal mucous membranes and turbinates normal, nares normal, septum norm al, no nasal discharge Face and Sinus: face symmetric Mouth: oral mucosae normal, tongue normal, oropharynx normal and moist mucous membranes Teeth and gingiva: dentition normal Throat: posterior oropha rynx normal, tonsils normal and uvula midline Eyes General: appearance normal, both eyes and all related structures Eyelids: eyelids normal Conjunctivae: conjunctivae normal Pupils: PERRL, normal by con frontation and accommodation normal EOM: EOM intact bilaterally Neck Neck: normal visual inspection, trachea midline and no JVD JVD: +5 Carotids: normal carotid upstroke and bounding pulses Chest Chest inspection: normal inspection of the chest, symmetric chest movement and normal respiratory effort Auscultation: Bilateral: Clear to Auscultation Cardio Palpation: normal PMI Rhythm: irregular rhythm He art sounds: S1 normal and S2 normal GI GI: normal to inspection, soft, no hepatosplenomegaly and bowel sounds present Neuro General: alert, awake, oriented x3, no focal sensory deficit, gait normal and moves all extremities Skin Skin: no rashes or lesions noted Extremities Pulses: Normal: Right Femoral Pulse, Left Femoral Pulse, Right Dorsalis Pedis Pulse, Left Dorsalis Pedis Pulse, Right Posterior Ti bial Pulse, Left Posterior Tibial Pulse, Right Radial Pulse, Left Radial Pulse Lower Extremity Edema: None: Bilateral Musculoskel Musculoskeletal: No joint tenderness Psych Psychological: normal affect Assessment AND Plan 1. Nonrheumatic aortic (valve) stenosis I35.0 Plan She does have a history of nonrheumatic aortic valve stenosis. By transvaginal echocardiogram the peak gradient was 72 mmHg and t he mean gradient of 33 mmHg. The aortic valve area was noted to be approximately 0.7 cm square. Her cardiac catheterization a year ago demonstrated a peak to peak gradient of 50 mmHg. I have suggested t o her that she should be considered for a T AVR approach prior to being considered for a traditional bioprosthetic transthoracic approach. 2. Nonrheumatic mitral (valve) insufficiency I34.0 Plan She do es have a history of mitral valve disease. It appears to be moderate by transthoracic echocardiogram and moderately severe by transesophageal echocardiogram. She may need to be considered for a mitral v alve repair or possibly a mitral valve clip if she is thought to be an appropriate candidate. 3. Other secondary pulmonary hypertension I27.29 Plan She does have a history of secondary pulmonary hypert ension likely secondary to her aortic valve disease as well as her mitral valve disease. Her pulmonary pressures by echocardiogram were in excess of 75 mmHg and at the time of her cardiac catheterizatio n she had demonstrated right ventricular pressures of 95 mmHg, pulmonary artery pressures of 107/40 mmHg, right atrial pressures of 21 mmHg. This was prior to diuresis. 4. Essential hypertension I10 Pl an She does have a history of systemic hypertension which is under good control at the present time on her current medications. She is on hydralazine as well as metoprolol. 5. Chronic atrial fibrillati on I48.2 Plan She does have chronic persistent atrial fibrillation likely secondary to valvular heart disease and hypertensive heart disease. Unfortunately she has not been able to tolerate any anticoag ulation and indeed has had recurrent blood transfusions. She is therefore currently not on any anticoagulation. Recent transesophageal echocardiogram however did not demonstrate any evidence of thrombus in the left atrial appendage. She may be considered a candidate for a watchman device as well 6. Atherosclerosis of [place] coronary artery of [place] heart without angina pectoris I25.10 [facility]: 6; 04/10/17 Plan She has minimal atherosclerotic cardiovascular disease based on her last cardiac catheterization from a year ago. Her left main had no significant obstructive coronary disease, LAD had a 30% stenosis, left circumflex had at most 50% stenosis in the right coronary artery had a 30% stenosis. Due to her renal dysfunction my hope is that we do not need to pursue any further dye related d iagnostic procedures prior to her having a definitive procedure performed. Her estimated creatinine clearance is 19. 7. 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 This certainly does add to her risk. 8. Anemia, unspecified type D64.9 Plan She does have a history of anemia with a hemoglobin which runs around 9- 10. This appears to be her baseline. She has not had any recent bleeds as well. Had an extensive discussion with the patien sweetie and her family regarding possible modalities of care here. I did suggest that there is the possibility of a TAVR procedure to take care of the aortic valve, with or without a mitral clip procedure, an d with and without a watchman device being placed. Due to her precarious renal function and since she underwent a cardiac catheterization within the last year it may be prudent if acceptable to undergo these procedures without repeating a cardiac catheterization. My recommendation at this stage would be to refer her to a tertiary care facility and for them to carefully review her and possibly meet her and then decide the best modality. At this particular time she appears to be fairly stable and is taking most activities of daily living. All questions have been answered as best and appropriately has possible. 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 transplanted heart: [place] heart CKD (chronic kidney disease), stage III N18.3 Anemia, unspecified type D64.9 Anemia type: unspecified type Coding Level of C are Code Off vis,est,level 5 Diagnoses Nonrheumatic aortic (valve) stenosis I35.0 Nonrheumatic mitral (valve) insufficiency I34.0 Other secondary pulmonary hypertension I27.29 Essential hypertension I1 0 Hypertension type: essential hypertension Chronic atrial fibrillation I48.2 Atherosclerosis of [place] coronary artery of [place] heart without angina pectoris I25.10 [place] vs. transplanted heart: [place] heart CKD (chronic kidney disease), stage III N18.3 Anemia, unspecified type D64.9 Anemia type: unspecified type 05/26/18 1541 <Electronically signed by Niraj Raymundo MD> Date Niraj Raymundo MD Cosigner Signature: Date (if applicable) CC: Sara Swartz DANIELE 23-May-2018 Echo Transesophageal ([facility]) Result: Comments: See Note; NOTES: [facility] [address] [place] [address] Echo Transesophageal (YOUNG) 05/23/18 0924 MR#: [id number] Acct: [id number] Name: GABBI GATES Rep #: [id number] : 1945 73 From: Niraj Raymundo MD Attending Dr: Niraj Raymundo MD Status: REG CLI Ordering Dr: Niraj Raymundo MD Date: 05/23/18 Location: [facility] Sex: F C Admitted: Reason For Study: Aortic Stenosis Medication YOUNG probe passed with minimal difficulty. No complications were noted. Topex Topical Brandywine given X4 metered doses orally. Versed 2 mg given slow IVP. Fentanyl 50 mcg given slow IVP. Performed a rapid injection of agitated mix of 9 cc saline and 1cc air to assess for atrial septal defect. Left Ventricle Normal LV size. Left ventricular systolic function is lissett l. The estimated ejection fraction is 60 %. No regional wall motion abnormalities noted. Right Ventricle Normal RV size. Mild global right ventricular systolic dysfunction. Atria Bubble contrast stud y negative for right to left interatrial shunt. Intact atrial septum. The left atrium is severely enlarged. No thrombus is detected in the left atrial appendage. The right atrium is severely enlarged. M itral Valve Normal mitral valve. Moderately severe (3+) mitral valve insufficiency. Tricuspid Valve Normal tricuspid valve. Moderate (2+) tricuspid valve insufficiency. Aortic Valve Trisinus/trileafle t aortic valve. Moderate focal aortic valve calcification. Moderate aortic stenosis. Mild (1+) eccentric aortic valve insufficiency. Pulmonic Valve Normal pulmonic valve. Vessels Normal aortic root. N ormal arch. The pulmonary artery is normal size. Pulmonary venous flow normal. Pericardium No pericardial effusion. Interpretation Summary Normal LV size. Left ventricular systolic function is normal. The estimated ejection fraction is 60 %. The left atrium is severely enlarged. The right atrium is severely enlarged. Moderate focal aortic valve calcification. Moderate aortic stenosis. Moderate reduct ion in aortic cusp seperation Ordering Physician: Niraj Raymundo Referring Physician: Niraj Raymundo V Performed By: Yanna Hankins RDCS 05/23/181511 Date Niarj Raymundo MD CC: Sara caro NAPHTHALENE OPERATOR; Niraj Raymundo MD Date Dictated: 05/23/18 0924 Date Transcribed: 05/23/181511 Manager Strategic Marketing: Signed 16-May-2018 12 Lead EKG performed by ABHAY Result: Comments: See Note; NOTES: [facility] [address] [place] [address] 12 Lead EKG performed by ABHAY 05/16/18 0957 MR#: [id number] Acct: [id number] Name: GABBI RODAS Rep #: [id number] : 1945 72 From: Niraj Raymundo MD Attending Dr: Niraj Raymundo MD Status: DEP AMB Ordering Dr: Niraj Raymundo MD Date: 05/16/18 [place] [facility] [place] F C Admitted: ORDER # : [id number] BMS/12 Lead EKG performed by [facility] [place] Possible atrial fibrillation Low voltage -possible pulmonary disease. ABNORMAL 05/19/18 0730 <Electronically signed by Niraj Raymundo MD> John e Niraj Raymundo MD CC: Sara Swartz NP Date Dictated: 05/16/18956 Date Transcribed: 05/16/18956 Manager Strategic Marketing: [place] Signed 03-May-2018 Echocardiogram Complete Result: Comments: See Note; NOTES: [facility] [address] [place] [id number] Echo Complete 05/02/18 1405 MR#: [id number] Acct: [id number] Name: GABBI ROLLE Rep #: [id number] : 1945 72 From: Niraj Raymundo MD Attending Dr: Niraj Raymundo MD Status: REG CLI Ordering Dr: Niraj Raymundo MD Date: 05/02/18 Location: [facility] Sex: F C Admitted: Reason For Study: Murmur Procedure This was a 2D Doppler, Color Flow transthoracic echocardiogram. Exam performed in department. Left Ventricle Normal LV size. Moderate concentric left ventricular hypertrophy. Left juan antonio tricular systolic function is normal. The estimated ejection fraction is 55 %. Transmitral and pulmonary venous doppler flow suggestive of impaired relaxation of left ventricle. Transmitral diastolic fl ow velocities suggest severe (stage 3) diastolic dysfunction. No regional wall motion abnormalities noted. Right Ventricle Normal RV size. Normal systolic function. Atria The left atrium is moderately enlarged. The right atrium is moderately enlarged. Mitral Valve Normal mitral valve. Mild-Moderate (1-2+) eccentric mitral valve insufficiency. Tricuspid Valve Normal tricuspid valve. Moderately sever e (3+) tricuspid valve insufficiency. Pulmonary artery systolic pressure is 75 mmHg. Severe pulmonary hypertension. Aortic Valve Trisinus/trileaflet aortic valve. Mild focal aortic valve calcification. Peak aortic valve gradient 72 mmHg. Mean aortic valve gradient 33 mmHg. Severe aortic stenosis. Mild (1+) eccentric aortic valve insufficiency. Pulmonic Valve Normal pulmonic valve. Great Vessels [place] mal aortic root. The pulmonary artery is normal size. Plethoric inferior vena cava. The inferior vena cava is dilated. Pericardium/Pleural No pericardial effusion. MMode/2D Measurements AND Calculatio ns LVIDd: 4.7 cm IVSd: 1.7 cm LVOT diam: 2.0 cm LVIDs: 3.3 cm LVPWd: 1.4 cm LVOT area: 3.0 cm2 RVDd: 5.0 cm FS: 29.9 % A o root diam: 3.4 cm LAV(MOD-bp): 147.6 ml Aortic Valve Planimetry: 0.77 cm2 ACS: 0.70 cm LAV(MOD-bp) Indexed: 59.5 ml/m2 LA dimension: 5.1 cm LAV(MOD-sp2): 130.7 ml LAV(MOD-sp4): 152.8 ml LA A4 area: 37.5 cm2 RA A4 area: 31.8 cm2 Time Measurements MV dec time: 0.18 sec Doppler Measurements AND Calculations MV E max pavel : 136.7 cm/sec Lat Peak E' Pavel: 11.9 cm/sec Med Peak E' Pavel: 8.9 cm/sec MV A max pavel: 33.7 cm/sec E/E' lat: 11.4 E/E' med: 15.3 MV E/A: 4.1 MV V2 max: 171.2 cm/sec MV P1/2t max pavel: 171.2 cm/sec Ao V2 max: 426.8 cm/sec MV max P.7 mmHg MV P1/2t: 81.6 msec Ao max P.9 mmHg MV V2 mean: 74.9 cm/sec MV dec slope: 614 .1 cm/sec2 Ao V2 mean: 264.2 cm/sec MV mean P.0 mmHg MVA(P1/2t): 2.7 cm2 Ao mean P.6 mmHg MV V2 VTI: 40.0 cm Ao V2 VTI: 117.4 cm MVA(VTI): 2.2 cm2 ALONSO(I,D): 0.76 cm2 ALONSO(V,D): 0.67 cm2 AI max pavel: 387.1 cm/sec LV V1 max: 94.5 cm/sec SV(LVOT): 89.7 ml AI max P.0 mmHg LV V1 max P.6 mmHg AI dec slope: 266.9 cm/sec2 LV V1 mean P.5 mmHg AI P1/2t: 424.9 msec LV V1 mean: 75.3 cm/sec LV V1 VTI: 29.7 cm PA V2 max: 89.0 cm/sec TR max pavel: 390.7 cm/sec TR max P.1 mmHg Interpretation Summary Normal LV size. Moderate concentric left ventricular hypertrophy. Left ventricular systolic function is normal. The estimated ejecti on fraction is 55 %. Transmitral diastolic flow velocities suggest severe (stage 3) diastolic dysfunction Mild-Moderate (1-2+) eccentric mitral valve insufficiency. Severe pulmonary hypertension. Severe aortic stenosis. Mild (1+) eccentric aortic valve insufficiency. Ordering Physician: Cee Raymundo Referring Physician: Niraj Raymundo V Performed By: Dany Triplett RCS 05/03/18 1436 Date ____ Niraj Raymundo MD CC: Sara Swartz NAPHTHALENE OPERATOR; Niraj Raymundo MD Date Dictated: 05/02/18 1405 Date Transcribed: 05/03/18 1436 Manager Strategic Marketing: Signed 29-Apr-2018 Oncology Visit Report Result: Comments: See Note; NOTES: [facility] [address] [place] [address] OFFICE VISIT Date of Service: 04/29/18 1417 MR#: [id number] Acct: [id number] Name: GABBI ROLLE Rep #: [id number] : 1945 From: Halley Khan MD Age/Sex: 72/F Location: ONC Status: Signed - Problem List (1) Anemia Status: Chronic Qualifiers: Anemia type: unspecified type Qualified C ode(s): D64.9 - Anemia, unspecified (2) Iron deficiency anemia Status: Chronic Qualifiers: Iron deficiency anemia type: chronic blood loss Qualified Code(s): D50.0 - Iron deficiency anemia secondary to blood loss (chronic) (3) CRF (chronic renal failure) Status: Chronic Qualifiers: Chronic kidney disease stage: stage 3 (moderate) Qualified Code(s): N18.3 - Chronic kidney disease, stage 3 (moderate) (4) Anemia in chronic kidney disease (CKD) Status: Chronic - Date of Service Date of Service:: 04/29/18 - Chief Complaint Anemia - History of Present Illness Patient is a 72-year-old female with a past medical history notable for morbid obesity diabetes chronic renal failure hypertension chronic atrial fibrillation on long-term anticoagulation (had to be held in 2018) and chronic and episodic acu te GI blood loss (GI nuclear scan January 2018 reported:2 separate foci of active extravasation (active bleeding) of radiotracer located in the stomach and in the upper ascending colon.) She had been on or al iron supplement averaging 1-3 (usually 2/d) tablets daily for the past few years . She has received IV iron since 2017 and needed blood transfusion on several occasions for severe symptomatic anemia. Her Coumadin anticoagulation had to be held due to increasing GI blood loss despite the fact that she is at an increased risk for cerebrovascular events from chronic atrial fibrillation. Her oral iron supplement was discontinued in 2018 to allow for monitoring of GI bleeding. Her anemia has responded in the past to oral and intravenous iron but tends to recur rapidly. February 2018 she presented with y et another episode of acute on chronic GI bleed and was urgently transferred to [facility] where she underwent a nuclear medicine GI blood loss imaging followed by angiography and embolization of a bleeding artery. - Past Medical/Social History Past Medical History Past Medical History: Anemia,Bleeding disorder,Blood transfusion, Diabetes mellitus,Diverticulitis,Edema,GI bleed, Heart diseas e,Hyperlipidemia,Hypertension,Liver disease,Obesity,Osteopenia,Pneumonia, Postmenopausal,Vitamin D deficiency,Fatigue Other Past Medical History: PULMONARY HYPERTENTION UTI (SEPTIC) GIB Past Surgical H istory Surgical: Appendectomy,Hysterectomy Other Surgical History: RIGHT FOOT SURGERY 1985 Family History Paternal Past Medical History: Heart disease Maternal Past Medical History: Unknown Maternal History of Cancer: Uterine cancer Social History Social History: No changes Smoking Status Never smoker Review of Systems Constitutional:: Reports: Weakness - Much less then prior, Fatigue Cardiova scular:: Reports: Ankle swelling, Dyspnea on exertion, Peripheral edema. Denies: Chest pain, Palpitations, Orthopnea, PND, Shortness of breath Respiratory: Reports: Shortness of breath upon exertion. De nies: Cough, Hemoptysis, Shortness of Breath, Wheezing Gastrointestinal:: Denies: Abdominal pain, Nausea, Vomiting, Diarrhea, Constipation, Hematochezia Genitourinary: Denies: Dysuria, Hematuria, 15, Fl ank pain Musculoskeletal:: Reports: Arthritis, Arthralgia. Denies: Back pain, Myalgia Skin: Denies: Rash, Skin Changes, Wounds Neurological:: Denies: Headache, Dizziness, Visual changes, Tinnitus, Heari ng loss Psychiatric: Denies: Anxiety, Depression, Homicidal Ideations, Suicidal Ideations Vital Signs Height 5 ft 7 in Weight: 154.947 kg Weight in Pounds 341.6 lbs Pulse Ox 96 - Physical Exam Gene ral: Alert, Oriented x3, No apparent distress, - - Morbidly obese ECOG 2 Mildly pale HEENT: Atraumatic, PERRLA, EOMI, Normocephalic Oropharynx:: Pale mucosa, Dry mucosa Neck:: Supple, Trachea midline. N egative for: JVD, bilateral Cardiac:: Irregular rate, Murmur Lungs: Clear to auscultation, Excusion symmetrical. Negative for: Rhonchi, Wheezes Abdomen:: Soft, Non-tender Extremities:: Edema - Gross non pitting indurated Neurological: Neuro grossly intact Skin:: Negative for: Lesions, Rash, Petechiae, Ecchymosis Psychiatric:: Appropriate affect, Euthymic Lymphatics:: Negative for: Cervical lymphadenopa thy, Supraclavicular lymphadenopathy Laboratory Data: Laboratory Tests Iron Saturation 5.6 L 12.8 L 21.2 Ferritin 46 33 32 Iron Saturation 10.4 L 19.7 26.7 Ferritin 43 69 109 Iron Saturation 13.0 L 12.7 L 31.9 Ferritin 60 54 135 Iron Saturation 11.8 L Ferritin 44 Assessment and Plan 72-year-old female with chronic recurring anemia most consistent with multiple factors includin. Chronic rec urrent iron deficiency anemia due to chronic and acute episodes of GI blood loss Despite oral iron supplementation (group home), . Patient was transfused with packed red cells on several occasions for s evere symptomatic anemia and required IV iron. She does respond but tends to recur despite repeated IV iron infusions. Target ferritin (over 100) and transferrin saturation (over 20%) and presence of ch ronic diseases including chronic kidney insufficiency February 23, 2018 underwent angiography and embolization of a bleeding vessel. Her H AND H appears to be more stable since but there is a slower decline and iron studies suggestive of ongoing but to a much lesser extent chronic blood loss. Will supplement with then a fever 300 this month and reassess in 1 month. 2. Anemia of chronic renal failure. Was correction of her iron deficiency anemia her hematocrit tends to be at 30% or above therefore she is not a candidate for erythrocyte stimulating agent therapy for anemia of chronic kidney failure at pre sent. 3. Anemia due to polypharmacy and minor contributor but expected side effect. 4. Worsening of her chronic GI blood loss can be attributed to Coumadin anticoagulation on top of colonic pathology . Anticoagulation has been discontinued 2018 Patient was seen was her impression and plan discussed. Medications: Prescriptions This Visit Medication Instructions Recorded Ipratropium/Albute rol Sulfate 2 puff IH Q4H PRN PRN 01/03/18 [Combivent Respimat Inhal Brandywine] Furosemide [Lasix] 40 mg PO BID 01/15/18 Primary Care Provider: Sara Swartz Referring Provider: Halley Khan MD [id number] <Electronically signed by Halley Khan MD> Date Halley Khan MD Cosigner Signature: Date (if applicable) CC: 29-Apr-2018 Cardiology Visit Report Result: Comments: See Note; NOTES: [facility] [address] [place] [address] OFFICE VISIT Date of Service: 04/29/18 MR#: [id number] Acct: [id number] Name: GABBI ROLLE Rep #: [id number] : 1945 Provider: Niraj Raymundo MD Age/Sex: 72/F Location: [facility] [place] Status: Signed [facility] Chief Complaint: Follow up Details: GABBI ROLLE, is a 72 F who presents to the office today for a follow-up visit. She is a lady with a history of chronic persistent atrial fibrillation, valvular heart disease with mitral valve regurgitation and aortic stenosis and minimal coronary hilaria ry disease. She also has a history of pulmonary hypertension obesity, and obstructive sleep apnea. She has had recurrent GI bleeds unfortunately and has been admitted to the hospital 5 times since the s pring. She has had a total of approximately 19 units of blood transfusion as well as has been getting iron infusions. She was recently taken off all her anticoagulation due to the recurrence of the abov e. She has had no dizziness or lightheadedness no maggie syncopal episodes. She continues to see the plasterer helper for follow-up of her blood work. Her physical exam today demonstrates clear lung rodriguez m ild pallor regular rate and rhythm a 2/6 harsh systolic murmur noted left sternal border and no pedal edema. Intake Vital Signs04/29/18 Height 5 ft 7 in 04/29/18 Weight: 325 lb 04/29/18 Body Mass Inde x (BMI) 50.8 Intake Visit Reasons: 6 M FU (pt r/s from - due to inpatient) Allergies No Known Allergies Allergy (Verified 04/02/18 13:49) Medications Ascorbic Acid [Vitamin C] 1,000 mg PO BID 11/18/17 [History Confirmed 04/29/18] Calcium Citrate 500 mg PO BID 11/18/17 [History Confirmed 04/29/18] Cholecalciferol (Vitamin D3) [Vitamin D3] 2,000 unit PO BID 11/18/17 [History Confirmed 04/29/18 ] Lisinopril [Zestril] 10 mg PO DAILY 11/18/17 [History Confirmed 04/29/18] Magnesium Oxide [Magnesium] 400 mg PO DAILY 11/18/17 [History Confirmed 04/29/18] Metoprolol Tartrate [Lopressor (beta long )] 100 mg PO BID 11/18/17 [History Confirmed 04/29/18] Multivitamin [Daily Multiple Vitamin] 1 ea PO DAILY 11/18/17 [History Confirmed 04/29/18] Pravastatin Sodium 80 mg PO QHS 11/18/17 [History Confirm ed 04/29/18] Ropinirole HCl [Requip] 0.25 mg PO QHS 11/18/17 [History Confirmed 04/29/18] Sildenafil Citrate [Revatio] 20 mg PO TID 11/18/17 [History Confirmed 04/29/18] Ubidecarenone [Coenzyme Q-10] 10 0 mg PO DAILY 11/18/17 [History Confirmed 04/29/18] hydrALAZINE [Apresoline] 25 mg PO BID 11/18/17 [History Confirmed 04/29/18] Ipratropium/Albuterol Sulfate [Combivent Respimat Inhal Brandywine] 2 puff IH Q 4H PRN PRN 01/03/18 [History Confirmed 04/29/18] Furosemide [Lasix] 40 mg PO BID 01/15/18 [History Confirmed 04/29/18] Potassium Chloride [K-Dur] 40 meq PO DAILY #60 tab 01/27/18 [Rx Confirmed 04/29/18] pantoprazole 40 mg tablet,delayed release 40 mg PO BID 02/13/18 [History Confirmed 04/29/18] Budesonide/Formoterol Fumarate [Symbicort 160-4.5 Mcg Inhaler] 2 puff IH BID 02/23/18 [History Confirmed 07/06] febuxostat 80 mg tablet 80 mg PO PRN PRN 04/29/18 [History Confirmed 04/29/18] [facility] Medical History Atherosclerotic heart disease of [place] 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 pectoris (Chronic) Chronic atrial fibrillation (Chronic) GI bleed (Acute) Hyperkalemia (Chronic) HLD (hyperlipidemia) (Chronic) HTN (hypertension) (Chronic) Non-ST elevation ( NSTEMI) myocardial infarction (Chronic) Nonrheumatic aortic (valve) stenosis (Chronic) Nonrheumatic mitral (valve) insufficiency (Chronic) Nonrheumatic tricuspid (valve) insufficiency (Chronic) Other se condary pulmonary hypertension (Chronic) SOB (shortness of breath) (Chronic) Anemia (Acute) Arthritis (Acute) Bloody stool (Acute) Diabetes (Acute) Diverticulitis (Acute) Fatigue (Acute) Heart attack (A cute) Heart disease (Acute) History of GI bleed (Acute) History of blood transfusion (Acute) History of pneumonia (Acute) Kidney disease (Acute) Knee pain (Acute) Liver disease (Acute) Obesity (Acute) O steopenia (Acute) Pulmonary hypertension (Acute) Sepsis (Acute) Sepsis secondary to UTI (Acute) Surgical History History of appendectomy (Acute) History of hysterectomy (Acute) Status post right foot surgery (Acute) History of left heart catheterization (LHC) (Resolved) Family History Mother , ag e 83 Uterine cancer Hypertension Father , age 81 Heart disease Diabetes CAD (coronary artery disease) Hypertension Social History Smoking Status: Never smoker alcohol intake: never substance use type: does not use caffeine: No what type of physical activity do you participate in: none seatbelt use: always do you feel safe at home: Yes ROS Const Const: Negative for fatigue, weaknes s, night sweats, excessive sweating, frequent falls, headache(s) or daytime sleepiness Eyes Eyes: Negative for loss of peripheral vision, transient loss of vision, blind spots, double vision or blurry v ision ENT ENT: Negative for headache(s), dizziness, balance problems, Nosebleed/epistaxis, tongue swelling or lip swelling Cardio Chest Pain: No Palpitations: No Edema: None Muscle aches with walking: N one Resp Respiratory: Negative for SOB at rest, SOB orthopnea\SOB lying down, Cough, paroxysmal nocturnal dyspnea or SOB with activity GI GI: Negative nausea, vomiting, heartburn, black,tarry stools or bright, red blood in stools : Negative for hematuria Musc Musc: Negative for balance problems, muscle aches/ myalgia, muscle weakness or joint pain Skin Skin: Negative non-healing lesions, unusual bruising or rash Neuro Neuro: Negative for weakness, frequent falls, headache(s), double vision, dizziness, lightheadedness, orthostatic symptoms, blurry vision or lack of coordination Omer Hematologic/ Lymphatic: Negative for easy bruising or easy bleeding Endo Endo: Negative for fatigue, excessive sweating, cold intolerance, heat intolerance, increased thirst/drinking or hair loss Psych Psych: Negati ve for anxiety or depression Allergy Allergy/Immunology: Negative for throat swelling, Negative for tongue swelling, Negative for hives, Negative for rash, Negative for lip swelling Cardiology Exam Co nst Appearance: cooperative, healthy appearing, well developed, well groomed and no acute distress Nutritional Appearance: well nourished and average body habitus Orientation: alert, awake and oriented x3 Head Head: normal to inspection, normocephalic and atraumatic Ears: hearing grossly normal bilaterally and external ears normal Nose: external nose normal, nasal mucous membranes and turbinates lissett l, nares normal, septum normal, no nasal discharge Face and Sinus: face symmetric Mouth: oral mucosae normal, tongue normal, oropharynx normal and moist mucous membranes Teeth and gingiva: dentition nor mal Throat: posterior oropharynx normal, tonsils normal and uvula midline Eyes General: appearance normal, both eyes and all related structures Eyelids: eyelids normal Conjunctivae: conjunctivae normal Pupils: PERRL, normal by confrontation and accommodation normal EOM: EOM intact bilaterally Neck Neck: normal visual inspection, trachea midline and no JVD JVD: +5 Carotids: normal carotid upstroke and bounding pulses Chest Chest inspection: normal inspection of the chest, symmetric chest movement and normal respiratory effort Auscultation: Bilateral: Clear to Auscultation Cardio Palpation: normal PMI Rate: regular rate Rhythm: regular rhythm Heart sounds: S1 normal and S2 normal Murmur: Grade 2/6, harsh and early systolic GI GI: normal to inspection, soft, no hepatosplenomegaly and bowel sounds pre sent Neuro General: alert, awake, oriented x3, no focal sensory deficit, gait normal and moves all extremities Skin Skin: no rashes or lesions noted Extremities Pulses: Normal: Right Femoral Pulse, Left Femoral Pulse, Right Dorsalis Pedis Pulse, Left Dorsalis Pedis Pulse, Right Posterior Tibial Pulse, Left Posterior Tibial Pulse, Right Radial Pulse, Left Radial Pulse Lower Extremity Edema: None: Bilat eral Musculoskel Musculoskeletal: No joint tenderness Psych Psychological: normal affect Assessment AND Plan 1. Chronic atrial fibrillation I48.2 Plan She does have a history of chronic persistent atr ial fibrillation her ventricular response rate is well controlled she will remain on her current medications, with the beta-long but no anticoagulation. She tells me that an echocardiogram may have b een performed at the outside hospital and this would be reviewed. 2. Essential hypertension I10 Plan Her blood pressure appears to be under good control at this time on the current medical therapy and I would not recommend that we make any changes. She will remain on the lisinopril as well as the beta-long. 3. Coronary artery disease, angina presence unspecified, unspecified vessel or lesion type , unspecified whether [place] or transplanted heart I25.10 Plan She does have minimal coronary artery disease per cardiac catheterization in March 2017. With the denial of any chest arm or jaw discomfor t we will continue to monitor her closely. With her recurrent anemia she has not developed any further chest pain and that is a good sign. Orders Orders: 4. Nonrheumatic aortic (valve) stenosis I35.0 P eloina She does have a history of aortic valvular disease with mild aortic stenosis with a valve area of 1.3 cm her ejection fraction was noted to be preserved I will recommend that we repeat the above to assess aortic, mitral, and tricuspid valves as well as a pulmonary pressures. 5. Other secondary pulmonary hypertension I27.29 Plan She does have a history of pulmonary hypertension which is likely sec ondary to mitral and aortic valve disease we will repeat her echocardiogram for reassessment of the above. 6. Gastrointestinal hemorrhage, unspecified gastrointestinal hemorrhage type K92.2 Plan This a lso for GI bleeds is perplexing she has had embolization following GI bleed scans as well as clips placed. She will continue to follow with the GI physician on the above. Plan Detail Follow Up 4 Months ([facility]) Coding Level of Care Code Off vis,est,level 5 Diagnoses Chronic atrial fibrillation I48.2 Essential hypertension I10 Hypertension type: essential hypertension Coronary artery disease, angina p resence unspecified, unspecified vessel or lesion type, unspecified whether [place] or transplanted heart I25.10 Coronary Disease-Associated Artery/Lesion type: unspecified vessel or lesion type [place] s. transplanted heart: unspecified whether [place] or transplanted heart Associated angina: angina presence unspecified Nonrheumatic aortic (valve) stenosis I35.0 Other secondary pulmonary hypertension I 27.29 Gastrointestinal hemorrhage, unspecified gastrointestinal hemorrhage type K92.2 GI bleed type/associated pathology: unspecified gastrointestinal hemorrhage type Coding Level of Care Code Off vis ,est,level 5 Diagnoses Chronic atrial fibrillation I48.2 Essential hypertension I10 Hypertension type: essential hypertension Coronary artery disease, angina presence unspecified, unspecified vessel or lesion type, unspecified whether [place] or transplanted heart I25.10 Coronary Disease-Associated Artery/Lesion type: unspecified vessel or lesion type [place] vs. transplanted heart: unspecified whether [place] or transplanted heart Associated angina: angina presence unspecified Nonrheumatic aortic (valve) stenosis I35.0 Other secondary pulmonary hypertension I27.29 Gastrointestinal hemorrhage, unspeci fied gastrointestinal hemorrhage type K92.2 GI bleed type/associated pathology: unspecified gastrointestinal hemorrhage type 04/29/18 1355 <Electronically signed by Niraj Raymundo MD> Da te Niraj Raymundo MD Cosigner Signature: Date (if applicable) CC: Sara Swartz NP 02-Apr-2018 Oncology Visit Report Result: Comments: See Note; NOTES: [facility] [address] [place] [address] OFFICE VISIT Date of Service: 04/02/18 1329 MR#: [id number] Acct: [id number] Name: GABBI ROLLE Rep #: [id number] : 1945 From: Halley Khan MD Age/Sex: 72/F Location: ONC Status: Signed - Problem List (1) Anemia Status: Chronic Qualifiers: Anemia type: unspecified type Qualified C ode(s): D64.9 - Anemia, unspecified (2) Iron deficiency anemia Status: Chronic Qualifiers: Iron deficiency anemia type: chronic blood loss Qualified Code(s): D50.0 - Iron deficiency anemia secondary to blood loss (chronic) (3) CRF (chronic renal failure) Status: Chronic Qualifiers: Chronic kidney disease stage: stage 3 (moderate) Qualified Code(s): N18.3 - Chronic kidney disease, stage 3 (moderate) (4) Anemia in chronic kidney disease (CKD) Status: Chronic - Date of Service Date of Service:: 04/02/18 - Chief Complaint Anemia - History of Present Illness Patient is a 72-year-old female with a past medical history notable for morbid obesity diabetes chronic renal failure hypertension chronic atrial fibrillation on long-term anticoagulation (had to be held in 2018) and chronic and episodic acu te GI blood loss (GI nuclear scan January 2018 reported:2 separate foci of active extravasation (active bleeding) of radiotracer located in the stomach and in the upper ascending colon.) She had been on or al iron supplement averaging 1-3 (usually 2/d) tablets daily for the past few years . She has received IV iron since 2017 and needed blood transfusion on several occasions for severe symptomatic anemia. Her Coumadin anticoagulation had to be held due to increasing GI blood loss despite the fact that she is at an increased risk for cerebrovascular events from chronic atrial fibrillation. Her oral iron supplement was discontinued in 2018 to allow for monitoring of GI bleeding. Her anemia has responded in the past to oral and intravenous iron but tends to recur rapidly. February 2018 she presented with y et another episode of acute on chronic GI bleed and was urgently transferred to [facility] where she underwent a nuclear medicine GI blood loss imaging followed by angiography and embolization of a bleeding artery. - Past Medical/Social History Past Medical History Past Medical History: Anemia,Bleeding disorder,Blood transfusion, Diabetes mellitus,Diverticulitis,Edema,GI bleed, Heart diseas e,Hyperlipidemia,Hypertension,Liver disease,Obesity,Osteopenia,Pneumonia, Postmenopausal,Vitamin D deficiency,Fatigue Other Past Medical History: PULMONARY HYPERTENTION UTI (SEPTIC) GIB Past Surgical H istory Surgical: Appendectomy,Hysterectomy Other Surgical History: RIGHT FOOT SURGERY 1985 Family History Paternal Past Medical History: Heart disease Maternal Past Medical History: Unknown Maternal History of Cancer: Uterine cancer Social History Smoking Status Never smoker Review of Systems Constitutional:: Reports: Weakness, Fatigue - Chronic. Denies: Fever, Sweats, Weight loss, Appetite ch jaz, Chills Cardiovascular:: Reports: Dyspnea on exertion, Peripheral edema. Denies: Chest pain, Palpitations, Orthopnea, PND, Shortness of breath Respiratory: Reports: Shortness of breath upon exertio n. Denies: Cough, Hemoptysis, Shortness of Breath, Wheezing Gastrointestinal:: Reports: Melena - Intermittent recurred the weekend of March 29, Hematochezia. Denies: Abdominal pain, Nausea, Vomiting, D iarrhea, Constipation Genitourinary: Denies: Dysuria, Hematuria, 15, Flank pain Musculoskeletal:: Reports: Arthritis - Limits activities, Arthralgia. Denies: Back pain, Myalgia Skin: Denies: Rash, Skin Changes, Wounds Neurological:: Denies: Headache, Dizziness, Visual changes, Tinnitus, Hearing loss Psychiatric: Denies: Anxiety, Depression, Homicidal Ideations, Suicidal Ideations Vital Signs Height 5 ft 7 in Weight: 158.757 kg Weight in Pounds 350.0 lbs Pulse Ox 99 - Physical Exam General: Alert, Oriented x3, No apparent distress, - - Morbidly obese HEENT: Atraumatic, PERRLA, EOMI, Normocephali c, - Oropharynx:: Pale mucosa, Dry mucosa Neck:: Supple, Trachea midline, -. Negative for: JVD, bilateral Cardiac:: Irregular rate, Murmur Lungs: Clear to auscultation, Excusion symmetrical. Negative fo r: Rhonchi, Wheezes Extremities:: Edema - Gross nonpitting Neurological: Neuro grossly intact Laboratory Data: Laboratory Tests RBC Hgb Hct 35.7 L Iron Saturation 5.6 L 12.8 L Ferritin 46 33 RBC 2.84 L Hgb 8.2 L 8.3 L Hct 27.9 L Iron Saturation 21.2 Ferritin 32 RBC Hgb 7.1 L 7.3 L 7.6 L Hct Iron Saturation Ferritin RBC Hgb 7.4 L 6.8 L 8.4 L Hct Iron Saturation Ferritin RBC Hgb 7.9 L 9.2 L Hct Ir on Saturation 10.4 L Ferritin 43 RBC Hgb 8.2 L Hct Iron Saturation 19.7 26.7 Ferritin 69 109 RBC Hgb 8.5 L 6.4 L Hct Iron Saturation 13.0 L Ferritin 60 RBC Hgb 8.8 L Hct Iron Saturation 12.7 L 31.9 F erritin 54 135 Assessment and Plan 72-year-old female with chronic recurring anemia most consistent with multiple factors includin. Chronic recurrent iron deficiency anemia due to chronic and acu te episodes of GI blood loss Despite oral iron supplementation (intermediate frame tender), . Patient was transfused with packed red cells on several occasions for severe symptomatic anemia and required IV iron. She d oes respond but tends to recur despite repeated IV iron infusions. Target ferritin (over 100) and transferrin saturation (over 20%) and presence of chronic diseases including chronic kidney insufficienc y February 23, 2018 underwent angiography and embolization of a bleeding vessel. We will continue to monitor for recurrent bleeds, meanwhile instructed to stop all oral iron to avoid confusion by discolorati on of stool. Follow-up in 1 month 2. Anemia of chronic renal failure. Since her hematocrit improved to over 30% she is not a candidate for erythrocyte stimulating agent therapy for anemia of chronic ki dney failure at present. 3. Anemia due to polypharmacy and minor contributor but expected side effect. 4. Worsening of her chronic GI blood loss can be attributed to Coumadin anticoagulation on top of colonic pathology . Anticoagulation has been discontinued 2018 Patient was seen was her impression and plan discussed. Medications: Prescriptions This Visit Medication Instructions Recorded Ipratropium/Albuterol Sulfate 2 puff IH Q4H PRN PRN 01/03/18 [Combivent Respimat Inhal [place]] Furosemide [Lasix] 40 mg PO BID 01/15/18 Primary Care Provider: Sara Swartz Referring Provider: Halley olivares MD 04/02/18 1419 <Electronically signed by Halley Khan MD> Date Halley Khan MD Cosigner Signature: Date __ (if applicable) CC: 05-Mar-2018 Oncology Visit Report Result: Comments: See Note; NOTES: [facility] [address] [place] [address] OFFICE VISIT Date of Service: 03/05/18 1431 MR#: [id number] Acct: [id number] Name: GABBI ROLLE Rep #: [id number] : 1945 From: Halley Khan MD Age/Sex: 72/F Location: OMD Status: Signed - Problem List (1) Anemia Status: Chronic Qualifiers: Anemia type: unspecified type Qualified C ode(s): D64.9 - Anemia, unspecified (2) Iron deficiency anemia Status: Chronic Qualifiers: Iron deficiency anemia type: chronic blood loss Qualified Code(s): D50.0 - Iron deficiency anemia secondary to blood loss (chronic) (3) CRF (chronic renal failure) Status: Chronic Qualifiers: Chronic kidney disease stage: stage 3 (moderate) Qualified Code(s): N18.3 - Chronic kidney disease, stage 3 (moderate) (4) Anemia in chronic kidney disease (CKD) Status: Chronic - Date of Service Date of Service:: 03/05/18 - Chief Complaint Anemia - History of Present Illness Patient is a 72-year-old female with a past medical history notable for morbid obesity diabetes chronic renal failure hypertension chronic atrial fibrillation on long-term anticoagulation and chronic GI blood loss attributed to diverticular disease. Patient is being seen for chronic, recurrent anemia that has been attributed to chronic and recurring iron deficiency from chronic GI blood loss. She has been on oral iron supplement averaging 1-3 (usually 2/d) tablets daily for the past few years . She has received IV iron since 2017 and needed blood transfusion on several occasions for severe symptomatic anemia. Her Coumadin anticoagulation had to be held due to increasing GI blood loss despite the fact that she is at an increased risk for cerebrovascular events from chronic atrial fibrillation. Her anemia has responded in the past to or al and intravenous iron but tends to recur rapidly. February 2018 she presented with yet another episode of acute on chronic GI bleed and was urgently transferred to [facility] where she underwent a [facility] medicine GI blood loss imaging followed by angiography and embolization of a bleeding artery "feeding the area where the small bowel joints into a large bowel as per patient. - Interval History Following the recent embolization on February 23, 2018 patient has noted that her stools have now turned brown. Unaware of any further visible bleeding - Past Medical/Social History Pa st Medical History Past Medical History: Anemia,Bleeding disorder,Blood transfusion, Diabetes mellitus,Diverticulitis,Edema,GI bleed, Heart disease,Hyperlipidemia,Hypertension,Liver disease,Obesity,Ost eopenia,Pneumonia, Postmenopausal,Vitamin D deficiency,Fatigue Other Past Medical History: PULMONARY HYPERTENTION UTI (SEPTIC) Past Surgical History Surgical: Appendectomy,Hysterectomy Other Surgical History: RIGHT FOOT SURGERY 1985 Family History Paternal Past Medical History: Heart disease Maternal Past Medical History: Unknown Maternal History of Cancer: Uterine cancer Social History Smoking Status Never smoker Review of Systems Constitutional:: Reports: Weakness, Fatigue, Weight loss, Weight gain, - Cardiovascular:: Reports: Dyspnea on exertion - Weight fluctuates up and down depending on fluid status, Peripheral edema, Shortness of breath. Denies: Chest pain, Palpitations, Orthopnea, PND Respiratory: Reports: Shortness of breath upon exertion. Denies: Cough, Hemoptysis, Shortness of Breath, Wheezing Gastrointestinal:: Denies: Abdominal pain, Nausea, Vomiting, Diarrhea, Constipation, Hematochezia Genitourinary: Denies: Dysuria, Hematuria, 15, Flank pain Musculoskeletal:: Reports: Ar thritis, Arthralgia. Denies: Back pain, Myalgia Skin: Denies: Rash, Skin Changes, Wounds Neurological:: Denies: Headache, Dizziness, Visual changes, Tinnitus, Hearing loss Psychiatric: Denies: Anxiety, Depression, Homicidal Ideations, Suicidal Ideations Vital Signs Height 5 ft 7 in Weight: 160.753 kg Weight in Pounds 354.4 lbs Pulse Ox 99 - Physical Exam General: Alert, Oriented x3, No apparent d istress, - - Morbidly obese, mildly pale Neck:: Supple, Trachea midline. Negative for: JVD, bilateral Cardiac:: Irregular rate, Murmur Lungs: Clear to auscultation Extremities:: Edema - Gross nonpitting Neurological: Neuro grossly intact Skin:: Negative for: Lesions, Rash, Petechiae, Ecchymosis Psychiatric:: Appropriate affect, Euthymic Lymphatics:: Negative for: Cervical lymphadenopathy Laboratory Da ta: Laboratory Tests WBC 6.2 (4.4-11.0) K/mm3 RBC 2.94 L (4.2-5.4) M/mm3 Hgb 8.5 L (12.0-15.0) g/dl Hct 28.7 L (37-47) % MCV 97.6 (81-99) fL An update iron studies following the most recent GI bleed o f February 23 pending Assessment and Plan 72-year-old female with chronic recurring anemia most consistent with multiple factors includin. Chronic recurrent iron deficiency anemia due to chronic GI bloo d loss presumed diverticular disease ( not a candidate for surgical intervention due to her significant comorbidities, follow-up with Dr. Hobbs, ) despite oral iron supplementation (intermediate frame tender) . Patien t was transfused with packed red cells on several occasions most recent being February 2018 for severe symptomatic anemia. Patient required IV iron and does respond but tends to recur despite repeated IV ir on infusions. Target ferritin (over 100) and transferrin saturation (over 20%) February 23, 2018 underwent angiography and embolization of a bleeding vessel. We will continue to monitor for recurrent bleeds, meanwhile instructed to stop all oral iron to avoid confusion by discoloration of stool by oral iron. Will update iron studies and continue iron infusions as guided by blood work. Follow-up in 1 month 2. Anemia of chronic renal failure. Since her hematocrit improved to over 30% she is not a candidate for erythrocyte stimulating agent therapy for anemia of chronic kidney failure at present. 3. Anemi a due to polypharmacy and minor contributor but expected side effect. 4. Worsening of her chronic GI blood loss can be attributed to Coumadin anticoagulation on top of colonic pathology . Anticoagulati on has been discontinued 2018 Patient was seen was her impression and plan discussed. Medications: Prescriptions This Visit Medication Instructions Recorded Primary Care Provider: Sara Ryan sa Referring Provider: Halley Khan MD 03/05/18 4840 <Electronically signed by Halley Khan MD> Date Halley yee Signature: Date (if applicable) CC: 27-Feb-2018 12 Lead Electrocardiogram Result: Comments: See Note; NOTES: [facility] Cardiovascular Services [address] [place] [address] 12 Lead EKG 02/23/18 1015 MR#: [id number] Acct: [id number] Name: GABBI ROLLE Rani p #: [id number] : 1945 72 From: Saleem Zavala MD Attending Dr: Status: DEP Ordering Dr: Nelson Soria MD Date: 02/23/18 Location: ED Sex: F C Admitted: Test Reason : GI BLEED Blood Press ure : / mmHG Vent. Rate : 073 BPM Atrial Rate : 100 BPM P-R Int : 000 ms QRS Dur : 084 ms QT Int : 396 ms P-R-T Axes : 000 026 046 degrees QTc Int : 436 ms Atrial fibrillation Nonspecific ST and T wave abnormality Abnormal ECG Confirmed by SALEEM ZAVALA MD ([id number]), newspaper photo editor JOSE GUADALUPE ROLLEETTE ([id number]) on 02/27/2018 1:03:39 PM Referred By: Sara Swartz Confirmed By:SALEEM ZAVALA MD 02/27/18 1303 Date __ Saleem Zavala MD CC: Sara Swartz NP; Nelson Soria MD Signed 23-Feb-2018 Emergency Department Summary Result: Comments: See Note; NOTES: [facility] Medical Records Department [address] [place] [address] Emergency Department Summary 02/23/18 1009 MR#: [id number] Acct: [id number] Name: GABBI ROLLE Rep #: [id number] : 1945 72 From: Nelson Soria MD PCP: Sara Swartz NP Status: REG ER - ER Visit Summary Date of Service: 02/23/18 Chief Complaint: GI bleeding History of P resent Illness: The patient is a 72 F presents to the emergency department with recurrent GI bleeding. 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 The patient was actually recently hospitalized about 3 weeks ago at [facility] for GI bleed. She was seen here initially, and was found to be significantly anemic with a supra therapeutic INR. She was started on a Protonix drip. S he underwent a bleeding scan which showed 2 areas of bleeding from the duodenum and the ascending colon. Given her multiple comorbidities, she was transferred to the ICU at [facility]. While there, patient was transfused. She was kept on a Protonix drip. She states that she underwent endoscopy and colonoscopy but is unsure if she had any treatment. Her bleeding is stopped. The patient had her Coumadin sto pped while she was hospitalized. She states she has been doing well at home, but today began to have bloody diarrhea. She does describe some dyspnea. She states that she had 4 episodes of red blood with some scant clots. She denies any abdominal pain. Physical Examination: Vital signs reviewed General: Well-nourished, well-developed Head: Normocephalic, atraumatic Eyes: Pupils equal and reactive, ext raocular muscles intact Neck, supple, no lymphadenopathy Heart: Regular rate and rhythm Respiratory: No distress, rales in the bases Abdomen: Soft, nontender, nondistended, no peritoneal signs, rectal e xam demonstrates a dark gross red blood Back: Nontender Extremities: Nontender, no edema, no cords Skin: Normal color no rash Neuro: Alert and oriented, no focal or lateralizing deficits Test Results: [] Emergency Department Course and Treatment: The patient had mild active bleeding on rectal exam. Initially, she was hypotensive on arrival. She was given a slight fluid bolus and was responsive. Her repeat blood pressure was 114/58. The patient has normal mentation. She is not tachycardic, but she is on beta-long. Screening labs do show recurrent anemia. Her hemoglobin is 6.4. This is a 2 g drop from labs that were done 6 days ago. The patient still has mild active bleeding, but is not grossly hemorrhaging. I did discuss the patient with Dr. Mcclain, but based on her recent hospitalization at [facility] and multiple comorbidities, it was thought that she would best be served back at a tertiary facility. Patient was started on a Protonix drip given history of duodenal ulcer and bleeding. The patie nt was discussed with Dr. Rowe at [facility] who excepted the patient transfer. She will be transferred to the intensive care unit. Treatment Plan: [] Disposition: Transfer Impression: 1. GI bleed 2. Symptomatic anemia This note was generated with [employer] dictation software. It may contain incorrect words, spelling, and punctuation that were not noted in review of the chart prior to signing ED D isposition - Plan for ED Patient: Chief Complaint: GI Bleed Referrals: Sara Swartz [Primary Care Provider] - What to do if you have Problems For any increased pain, shortness of breath, bleeding, na usea or vomiting, chest pain, or any unexpected problems, contact your Primary Care Provider. Call [facility] ([phone]) or report to the closest Emergency Room. Call 911 if necessary. 02/23 1228 <Electronically signed by Nelson Soria MD> Date Nelson Soria MD Cosigner Signature (If Indicated): Date CC: Sara Swartz NP 23-Feb-2018 Chest 1 View (Portable) Result: Comments: See Note; NOTES: [facility] Imaging Services [address] [place] [address] Chest 1 View (Portable) MR#: [id number] Acct: [id number] Name: GABBI ROLLE Rep #: [id number] : 1945 F 72 From: Heriberto Dickey PCP: Sara Swartz NP Status: REG ER Study: Chest 1 View (Portable) Date of Exam: 02/23/18 Exam# [id number] Ordering Dr: Nelson Soria MD STUDY: X-RAY CHEST REASON FOR EXAM: Female, 72 years old. CHF TECHNIQUE: Single AP portable view of the chest. COMPARISON: 01/27/2018. FINDINGS: Right IJ central line in place with t ip in mid SVC. The lungs are clear and expanded. There is no demonstrated pleural abnormality. There is mild cardiac enlargement. Normal mediastinum and veronika. Normal visualized pulmonary arteries. Nor mal visualized aortic arch and descending thoracic aorta. Normal visualized thoracic spine. Normal visualized ribs, clavicles, and shoulders. There is no demonstrated abnormality of the visualized sof t tissue structures of the upper abdomen. RAD/Chest 1 View (Portable) IMPRESSION: No acute pulmonary disease. Stable mild cardiomegaly. Electron ically Signed: Heriberto Dickey DO at 10:28 EDT , Service support , CC: Sara Swartz NP; Nelson Soria MD Manager Strategic Marketing: Signed 06-Feb-2018 12 Lead Electrocardiogram Result: Comments: See Note; NOTES: [facility] Cardiovascular Services [address] [place] [address] 12 Lead EKG 02/04/18 1427 MR#: [id number] Acct: [id number] Name: GABBI ROLLE Re p #: [id number] : 1945 72 From: Niraj Raymundo MD Attending Dr: Status: DEP ER Ordering Dr: Hayde Ruvalcaba DO Date: 02/04/18 Location: ED Sex: F C Admitted: Test Reason : Blood Pressure : / m mHG Vent. Rate : 069 BPM Atrial Rate : 053 BPM P-R Int : 000 ms QRS Dur : 106 ms QT Int : 382 ms P-R-T Axes : 000 034 109 degrees QTc Int : 409 ms Atrial fibrillation Nonspecific ST and T wave abnormal ity Abnormal ECG Confirmed by RIGOBERTO BALDWIN, NIRAJ ([id number]), newspaper photo editor JONATHON ROLLE ([id number]) on 02/06/2018 9:00:22 AM Referred By: SAMMIE Confirmed By:NIRAJ RAYMUNDO MD 02/06/18 0900 Date Niraj Raymundo MD CC: Sara Swartz NP; Hayde Ruvalcaba DO Signed 04-Feb-2018 Emergency Department Summary Result: Comments: See Note; NOTES: [facility] Medical Records Department [address] [place] [address] Emergency Department Summary 02/04/18 1225 MR#: [id number] Acct: [id number] Name: GABBI ROLLE Rep #: [id number] : 1945 72 From: Hayde Ruvalcaba DO PCP: Sara Swartz NP Status: REG ER - ER Visit Summary Date of Service: 02/04/18 Chief Complaint: [Rectal bleeding] History o f Present Illness: The patient is a 72 F [presents the emergency department with rectal bleeding for the last 4 days. Patient states that started having bright red blood in her stool 4 days ago. Patient states that she is having 2-3 bowel movements per day. Stools become more liquidy. Patient denies any fever. Patient does feel weak and somewhat lightheaded. Patient states that she had some episodes s imilar in November and had an upper and lower endoscopy at that time with Dr. Bobbi Birmingham. Patient has required transfusions in the past and has a history of low iron. Patient has a history of A. fib and is currently on Coumadin.] Physical Examination: [HEENT-PERRLA, EOMI. Cranial nerves II through XII grossly intact. TMs clear. Mucous membranes moist. No adenopathy. Cardiovascular-irregularly irregular with a 3 out of 6 systolic ejection murmur Lungs-clear to auscultation, chest wall stable without crepitus or subcu emphysema Abdomen-normoactive bowel sounds, soft, nontender, no rebound or rigidity , no peritoneal signs. Rectal exam-maroon stool noted, no masses palpated Extremities- intact 4, normal range of motion, normal pulses, atraumatic] Test Results: [CBC with differential obtained for wh ite count 7.5, hemoglobin 5.7, hematocrit 18.8, platelets 227. Chemistries unremarkable. BUN was 104 and creatinine was 3.3. INR was 3.7.] Bleeding study obtained showed patient to have bleeding from 2 sites one being in the cardia of the stomach and one being in the descending colon. Emergency Department Course and Treatment: [Case was discussed with hospitalist Dr. Fozia Huang as well as with general surgeon Dr. Keenan Mcclain and I was asked to transfer patient to higher level of care given her complicated medical issues] I was asked to order a bleeding scan which is been ordered and is pe nding Treatment Plan: [Transfer to [facility]]. I discussed case with shuttle route vehicle operator who accepted transfer of the patient. I did give patient 5 mg of vitamin K subcu. Disposition: [Transfer] Impre ssion: Upper GI bleed and lower GI bleed [] This note was generated with [employer] software. It may contain incorrect words, spelling, and punctuation that were not noted in review of the roberto t prior to signing ED Disposition - Plan for ED Patient: Chief Complaint: GI Bleed Referrals: Sara Swartz [Primary Care Provider] - What to do if you have Problems For any increased pain, shortnes s of breath, bleeding, nausea or vomiting, chest pain, or any unexpected problems, contact your Primary Care Provider. Call [facility] ([phone]) or report to the closest Emergency Room. Call 911 if necessary. 02/04/18 1715 <Electronically signed by Hayde Ruvalcaba DO> Date Hayde Ruvalcaba DO Cosigner Signature (If Indicated): Da te CC: Sara Swartz NP 04-Feb-2018 GI Bleed Scan Result: Comments: See Note; NOTES: [facility] Imaging Services [address] [place] [address] GI Bleed Scan MR#: [id number] Acct: [id number] Name: GABBI ROLLE Rep #: [id number] : 1945 F 72 From: Manuel Montoya MD PCP: Sara Swartz NP Status: REG ER Study: GI Bleed Scan Date of Exam: 02/04/18 Exam# [id number] Ordering Dr: Hayde Ruvalcaba DO [place] GI BLEED SCAN REASON FOR EXAM: Rect al bleeding for 4 days. TECHNIQUE: Following the intravenous administration of 25.4 mCi of technetium 99m labeled RBCs, dynamic acquisition of the abdomen and pelvis were acquired in the AP view for 60 minutes. FINDINGS: There is active extravasation of radiotracer in the left upper quadrant of the abdomen and small focal active extravasation of radiotracer in the right flank of the abdomen. There is increasing extravasation of radiotracer along the a stomach and increasing extravasation of radiotracer in the right flank of the upper abdomen. There are consistent with active bleeding. OPINION: 2 separate foci of active extravasation (active bleeding) of radiotracer located in the stomach and in the upper ascending colon. These active bleeding sites increase over time. Electronically Signed: Gordo Montoya MD at 14:19 EDT , Service support , NM/GI Bleed Scan CC: Sara Swartz NAPHTHALENE OPERATOR; Hayde Ruvalcaba DO Manager Strategic Marketing: Signed 29-Jan-2018 Oncology Visit Report Result: Comments: See Note; NOTES: [facility] [address] [place] [address] OFFICE VISIT Date of Service: 01/29/18 1339 MR#: [id number] Acct: [id number] Name: GABBI ROLLE Rep #: [id number] : 1945 From: Halley Khan MD Age/Sex: 72/F Location: OMD Status: Signed - Problem List (1) Anemia Status: Chronic Qualifiers: Anemia type: unspecified type Qualified C ode(s): D64.9 - Anemia, unspecified (2) Iron deficiency anemia Status: Chronic Qualifiers: Iron deficiency anemia type: chronic blood loss Qualified Code(s): D50.0 - Iron deficiency anemia secondary to blood loss (chronic) (3) CRF (chronic renal failure) Status: Chronic Qualifiers: Chronic kidney disease stage: stage 3 (moderate) Qualified Code(s): N18.3 - Chronic kidney disease, stage 3 (moderate) (4) Anemia in chronic kidney disease (CKD) Status: Chronic - Date of Service Date of Service:: 01/29/18 - Chief Complaint Fatigue, anemia - History of Present Illness Patient is a 72-year-old femal e with a past medical history notable for morbid obesity diabetes chronic renal failure hypertension chronic atrial fibrillation on long-term anticoagulation and chronic GI blood loss attributed to dive rticular disease. Patient is being seen for chronic, recurrent anemia that has been attributed to chronic and recurring iron deficiency from chronic GI blood loss. She has been on oral iron supplement a veraging 1-3 (usually 2/d) tablets daily for the past few years . She has received IV iron since 2017 and needed blood transfusion on several occasions for severe symptomatic anemia. There had been occa sions when her Coumadin anticoagulation had to be held due to increasing GI blood loss despite the fact that she is at an increased risk for cerebrovascular events from chronic atrial fibrillation. Her anemia has responded in the past to oral and intravenous iron but tends to recur. - Past Medical/Social History Past Medical History Past Medical History: Anemia,Bleeding disorder,Blood transfusion, Diabetes mellitus,Diverticulitis,Edema,GI bleed, Heart disease,Hyperlipidemia,Hypertension,Liver disease,Obesity,Osteopenia,Pneumonia, Postmenopausal,Vitamin D deficiency,Fatigue Other Past Medical His tory: PULMONARY HYPERTENTION UTI (SEPTIC) Past Surgical History Surgical: Appendectomy,Hysterectomy Other Surgical History: RIGHT FOOT SURGERY 1985 Family History Paternal Past Medical History: Hear t disease Maternal Past Medical History: Unknown Maternal History of Cancer: Uterine cancer Social History Smoking Status Never smoker Review of Systems Constitutional:: Reports: Weakness - Less, F atigue - Less, Weight loss - Due to loss of edema fluid, - - Overall I feel the best for the past few months. Denies: Fever, Sweats, Appetite change, Chills Cardiovascular:: Reports: Dyspnea on exertion . Denies: Chest pain, Palpitations, Orthopnea, PND, Shortness of breath Respiratory: Reports: Shortness of breath upon exertion. Denies: Cough, Hemoptysis, Shortness of Breath, Wheezing Gastrointestinal :: Reports: - - Stools are always dark, always test positive for blood. Denies: Abdominal pain, Nausea, Vomiting, Diarrhea, Constipation, Hematochezia Genitourinary: Denies: Dysuria, H ematuria, 15, Flank pain Musculoskeletal:: Reports: Arthritis - Chronic lower extremities degenerative joint disease, Arthralgia. Denies: Back pain, Myalgia Skin: Reports: Dryness, Rash - Take on the le gs, Skin Changes - Chronic on the legs. Denies: Wounds Neurological:: Denies: Headache, Dizziness, Visual changes, Tinnitus, Hearing loss Psychiatric: Denies: Anxiety, Depression, Homicidal Ideations, S uicidal Ideations Vital Signs Height 5 ft 7 in Weight: 151.772 kg Weight in Pounds 334.6 lbs Pulse Ox 96 - Physical Exam General: Alert, Oriented x3, No apparent distress, - - Morbidly obese HEENT: Atraumatic, PERRLA, EOMI, Normocephalic, - - Mildly pale Oropharynx:: Pale mucosa, Dry mucosa Neck:: Supple, Trachea midline, - - Port okay. Negative for: JVD, bilateral Cardiac:: Irregular rate Lungs: Clear to auscultation Abdomen:: Soft, Non-tender Extremities:: Edema - Gross nonpitting Neurological: Neuro grossly intact Skin:: - - Chronic trophic changes lower extremities Psychiatric:: Appropriate affect, Euthymic Lymphatics:: Negative for: Cervical lymphadenopathy, Supraclavicular lymphadenopathy Laboratory Data: Laboratory Tests Assessment and Plan 72-year-old female with chronic recurring anemia most consistent with multiple factors includin. Chronic recurrent iron deficiency anemia due to chronic GI blood loss presumed diverticular disease ( not a candidate for surgical interventio n due to her significant comorbidities, follow-up with Dr. Hobbs, to consider capsule study) despite oral iron supplementation (group home) . Patient was transfused with packed red cells on several occa sions most recent being November 2017 for severe symptomatic anemia patient required IV iron and does respond. This visit of January 2018 she is at target ferritin (over 100) and transferrin saturation (over 20%) Continue to supplement PO fe with IV as guided by B.W. 2. Anemia of chronic renal failure. Since her hematocrit improved to over 30% she is not a candidate for erythrocyte stimulating agent thera py for anemia of chronic kidney failure at present. 3. Anemia due to polypharmacy and minor contributor but expected side effect. 4. Worsening of her chronic GI blood loss can be attributed to Coumadi n anticoagulation on top of colonic pathology nonetheless the benefit in prevention of cerebrovascular events and absence of serious life-threatening bleeding outweighs the risk. Patient was seen was h er impression and plan discussed. Medications: Prescriptions This Visit Medication Instructions Recorded Ipratropium/Albuterol Sulfate 1 puff IH DAILY 01/03/18 [Combivent Respimat Inhal Brandywine ] Furosemide [Lasix] 40 mg PO BID 01/15/18 Primary Care Provider: Sara Swartz Referring Provider: Halley Khan MD 01/29/18 1144 <Electronically signed by Halley Khan MD> John e Halley Khan MD Cosigner Signature: Date (if applicable) CC: Sara Swartz 16-Jan-2018 Surgery Visit Report Result: Comments: See Note; NOTES: [facility] [address] [place] [address] OFFICE VISIT Date of Service: 01/15/18 MR#: [id number] Acct: [id number] Name: GABBI ROLLE Rep #: [id number] : 1945 Provider: Bo Madrid MD Age/Sex: 72/F Location: [facility] Status: Signed Intake Intake Visit Reasons: F/U PORT PLACEMENT 01/08/2018 Chief Complaint: por t consult Allergies No Known Allergies Allergy (Verified 01/07/18 09:31) Medications Ascorbic Acid [Vitamin C] 1,000 mg PO TID 11/18/17 [History Confirmed 01/08/18] Budesonide/Formoterol Fumarate [ Symbicort 160-4.5 Mcg Inhaler] 2 puff IH BID 11/18/17 [History Confirmed 01/08/18] Calcium Citrate 500 mg PO BID 11/18/17 [History Confirmed 01/08/18] Cholecalciferol (Vitamin D3) [Vitamin D3] 4,000 uni t PO BID 11/18/17 [History Confirmed 01/08/18] Febuxostat [Uloric] 80 mg PO PRN PRN 11/18/17 [History Confirmed 01/08/18] Furosemide [Lasix] 20 mg PO DAILY 11/18/17 [History Confirmed 01/08/18] Linaglip tin [Tradjenta] 5 mg PO PRN PRN 11/18/17 [History Confirmed 01/08/18] Lisinopril [Zestril] 10 mg PO DAILY 11/18/17 [History Confirmed 01/08/18] Magnesium Oxide [Magnesium] 250 mg PO BID 11/18/17 [Histor y Confirmed 01/08/18] Metoprolol Tartrate [Lopressor (beta long)] 100 mg PO BID 11/18/17 [History Confirmed 01/08/18] Multivitamin [Daily Multiple Vitamin] 1 ea PO DAILY 11/18/17 [History Confirmed 0 01/08/18] Pravastatin Sodium 80 mg PO QHS 11/18/17 [History Confirmed 01/08/18] Ropinirole HCl [Requip] 0.25 mg PO QHS 11/18/17 [History Confirmed 01/08/18] Sildenafil Citrate [Revatio] 20 mg PO TID 10/06 [History Confirmed 01/08/18] Ubidecarenone [Coenzyme Q-10] 100 mg PO DAILY 11/18/17 [History Confirmed 01/08/18] Warfarin [Coumadin] 5 mg PO DAILY 11/18/17 [History Confirmed 01/08/18] hydrALAZINE [Apresoline] 25 mg PO TID 11/18/17 [History Confirmed 01/08/18] Ferrous Sulfate 325 mg PO TID 11/29/17 [History Confirmed 01/08/18] Ipratropium/Albuterol Sulfate [Combivent Respimat Inhal Brandywine] 1 puff IH DAILY 01/03/18 [History Confirmed 01/08/18] Furosemide [Lasix] 40 mg PO BID 01/15/18 [History Confirmed 01/15/18] PFSH Medical History 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) Chronic atrial fibrillation (Chronic) GI bleed (Acute) Hyperkalemia (Chronic) HLD (hyperlipidemia) (Chronic) HTN (hypertension) (Chronic) Non-ST elevation (NSTEMI) myocardi al infarction (Chronic) Nonrheumatic aortic (valve) stenosis (Chronic) Nonrheumatic mitral (valve) insufficiency (Chronic) Nonrheumatic tricuspid (valve) insufficiency (Chronic) Other secondary pulmonar y hypertension (Chronic) SOB (shortness of breath) (Chronic) Anemia (Acute) Arthritis (Acute) Bloody stool (Acute) Diabetes (Acute) Diverticulitis (Acute) Fatigue (Acute) Heart attack (Acute) Heart dise ase (Acute) History of GI bleed (Acute) History of blood transfusion (Acute) History of pneumonia (Acute) Kidney disease (Acute) Knee pain (Acute) Liver disease (Acute) Obesity (Acute) Osteopenia (Acute ) Pulmonary hypertension (Acute) Sepsis (Acute) Sepsis secondary to UTI (Acute) Surgical History History of appendectomy (Acute) History of hysterectomy (Acute) Status post right foot surgery (Acute) History of left heart catheterization (LHC) (Resolved) Family History Mother , age 83 Uterine cancer Hypertension Father , age 81 Heart disease Diabetes CAD (coronary artery disease) Hypertension Social History Smoking Status: Never smoker alcohol intake: never substance use type: does not use caffeine: No what type of physical activity do you participate in: none seatbelt us e: always do you feel safe at home: Yes HPI HPI HPI: GABBI ROLLE, is a 72 F who presents to the office today for follow-up after port placement. The patient has used her port once and she report s that her incision healing well with no issues. Exam Chest Chest palpation AND inspection: normal inspection of the chest Other: Incision is clean dry and intact. Assessment AND Plan Problems 1. E ncounter for insertion of venous access port Z45.2 Plan 1. The incision is clean dry and intact with no erythema or ecchymosis. She is using her port once with no events. She can follow-up for port rem oval when it is no longer needed. Bo Madrid MD Pager: [facility] [address] [place] [address], [address] [place] [address] Office: Fax: Coding Level of Care Code Global Post Op Diagnoses Encounter for insertion of venous access port Z45.2 01/16/18 0936 <Electronically signed by Bo Madrid MD> D ate Bo Madrid MD Cosigner Signature: Date (if applicable) CC: Sara Swartz NP 08-Jan-2018 Operative Report Result: Comments: See Note; NOTES: [facility] Medical Records Department [address] [place] [address] [place] [address] Operative Report 01/08/18 1157 MR#: [id number] Acct: [id number] Name: FINA ROLLE Rep #: [id number] : 1945 72 From: Bo Madrid MD PCP: Sara Swartz NP Status: REG [facility] Y Location: [place] [address] Problem List (1) Encounter for insertion of venous access port Status: [place] (2) Anemia Status: Chronic Qualifiers: Anemia type: unspecified type Qualified Code(s): D64.9 - Anemia, unspecified Report of Operation Date of Procedure: 01/08/18 Pre-Operative Diagnosis: Anemia need for chronic vascular access for iron infusions Post-Operative Diagnosis: Same Surgery/Procedure Performed:: Fluoroscopy and ultrasound-guided right chest port placement utilizing right IJ Specimen' s removed: None Description of Procedure: After obtaining informed consent patient was brought back to the operating room MAC anesthesia was induced and the right chest and neck were prepped in normal sterile fashion. Ultrasound was used to evaluate both IJ is in the right IJ was selected. Next, using a needle, the right IJ was accessed and a guidewire was passed on into the superior vena cava under fluoroscopy guidance. A small incision was made over the puncture site and the dilator introducer was placed over the guidewire. Next this was capped and the pocket was made for the port. 1% lidocaine w ith epinephrine was injected in the proposed port site. An incision was made with scalpel. Electrocautery was used to make a pocket under the skin and subcutaneous tissue. Hemostasis was obtained. Next, the catheter was tunneled up to the neck incision site and placed through the introducer. The peel-away introducer was removed and the position of the catheter was confirmed on fluoroscopy. Next, the c atheter was trimmed and attached to the port with the locking device. Interrupted 2-0 PDS were used to anchor the port to the chest wall and then the port was placed inside the pocket. The pocket was th en flushed with saline and the port irrigated with saline. There was good blood return and the port flushed easily. Next, heparin was injected into the port. The skin was closed with subcutaneous interr upted 3-0 Vicryl sutures. A single 3-0 Vicryl suture placed under the skin at the neck incision site. Steri-Strips were placed as well as op sites. Patient tolerated procedure well, was taken to PACU in stable condition. Chest x-ray will be obtained. Grafts/Implants Used: 8 [employer] PowerPort and right IJ 01/08/18 1158 <Electronically signed by Bo Madrid MD> Date __ Bo Madrid MD CC: Sara Swartz NP; Bo Madrid MD Signed 08-Jan-2018 CXR for Line Placement Result: Comments: See Note; NOTES: [facility] Imaging Services [address] [place] [address] CXR for Line Placement MR#: [id number] Acct: [id number] Name: GABBI ROLLE Rep #: [id number] : 1945 F 72 From: Irvin Cho MD PCP: Sara Swartz NP [place] [facility] [place] CXR for Line Placement Date of Exam: 01/08/18 Exam# [id number] Ordering Dr: Bo Madrid MD STUD Y: X-RAY CHEST REASON FOR EXAM: Female, 72 years old. Right port insertion. TECHNIQUE: Single AP portable view of the chest. COMPARISON: Comparison is made with prior study dated December 23, 2017. FINDINGS: A right-sided portacatheter is in place. The tip is at the junction of the superior vena cava and right atrium. EKG electrodes are seen. Stable small left pleura l effusion with underlying atelectasis and/or infiltrate. Mild increased markings at the right lung base as well as the right suprahilar region. Follow-up is recommended. Normal size heart. Normal medi astinum and veronika. Normal visualized pulmonary arteries. There is atherosclerotic tortuosity of the aortic arch and descending thoracic aorta. There are diffuse degenerative changes of the visualized th oracic spine. Normal visualized ribs, clavicles, and shoulders. There is no demonstrated abnormality of the visualized soft tissue structures of the upper abdomen. RAD/CXR for Line Placement IMPRESSION: The tip of the right tamiko catheter is at the junction of the superior vena cava and right atrium. Stable findings in the lungs. Electronicall y Signed: Irvin Cho MD at 12:57 EDT Tel [phone], Service support , CC: Sara Swartz NP; Bo Madrid MD Manager Strategic Marketing: Signed 08-Jan-2018 Discharge Instruction Result: Comments: See Note; NOTES: [facility] Medical Records Department [address] [place] [address] Instructions for Home/Discharge Instructions 01/08/18 1155 MR#: [id number] Acct: [id number] Name: GABBI ROLLE Rep #: [id number] : 1945 72 From: Bo Madrid MD PCP: Tia SANABRIA, Sara Status[place] [facility] [place] Diet: No Restrictions - Pain medication may cause nausea. You should typically eat light foods as you take your pain medication. Discharge Activity: Return to Normal Activity, May Shower - with your bandage in place in 1-2 days after surgery. DO NOT SHOWER WHE N YOUR PORT IS ACCESSED. Call your doctor if your incision/area has: Continuous Slow Oozing, Sudden Increased Bleeding, Increased Pain/ Swelling, Increased Redness Call your doctor if you observe: Fever of 101 or Higher Remove Dressing in (days):: 2 - When you remove the bandage, leave the steri-strips intact until they fall off. Allergies/Adverse Reactions: Allergies No Known Allergies Allergy (Veri fied 01/07/18 09:31) Medications to take at Discharge Ascorbic Acid [Vitamin C] 1,000 mg PO TID 11/18/17 Budesonide/Formoterol Fumarate [Symbicort 160-4.5 Mcg Inhaler] 2 puff IH BID 11/18/17 Calcium Citrate 500 mg PO BID 11/18/17 Cholecalciferol (Vitamin D3) [Vitamin D3] 4,000 unit PO BID 11/18/17 Febuxostat [Uloric] 80 mg PO PRN PRN 11/18/17 Furosemide [Lasix] 20 mg PO DAILY 11/18/17 Linagliptin [Tradjenta] 5 mg PO PRN PRN 11/18/17 Lisinopril [Zestril] 10 mg PO DAILY 11/18/17 Magnesium Oxide [Magnesium] 250 mg PO BID 11/18/17 Metoprolol Tartrate [Lopressor (beta long)] 100 mg PO BID 11/18/17 Multivitamin [Daily Multiple Vitamin] 1 ea PO DAILY 11/18/17 Pravastatin Sodium 80 mg PO QHS 11/18/17 Ropinirole HCl [Requip] 0.25 mg PO QHS 11/18/17 Sildenafil Citrate [Revatio] 20 mg PO TID 11/18/17 Ubidecarenone [Coenzyme Q-10] 100 mg PO DAILY 11/18/17 Warfarin [Coumadin] 5 mg PO DAILY 11/18/17 hydrALAZINE [Apresoline] 25 mg PO TID 11/18/17 Ferrous Sulfate 325 mg PO TID 11/29/17 Ipratropium/Albute rol Sulfate [Combivent Respimat Inhal Brandywine] 1 puff IH DAILY 01/03/18 Primary Care Physician: Sara Swartz [Primary Care Provider] - Please Follow Up With: Bo Madrid MD When: call tomorrow to make 2 week follow up appt [phone] 01/08/18 1156 <Electronically signed by Bo Madrid MD> Date Bo Madrid MD CC: Sara Swartz NP 03-Jan-2018 Surgery Visit Report Result: Comments: See Note; NOTES: [facility] [address] [place] [address] OFFICE VISIT Date of Service: 01/03/18 MR#: [id number] Acct: [id number] Name: GABBI ROLLE Alexandro Rep #: [id number] : 1945 Provider: Bo Madrid MD Age/Sex: 72/F Location: [facility] Status: Signed Intake Vital Signs01/03/18 Height 5 ft 7 in 01/03/18 Weight: 378 lb 9 oz Body Mass Index (BMI) 59.3 Intake Visit Reasons: Port Placement Chief Complaint: port consult Yard Hand Required: No Is patient in pain?: No Allergies No Known Allergies Allergy (Verified 13:05) Medications Ascorbic Acid [Vitamin C] 1,000 mg PO BID 11/18/17 [History Confirmed 01/03/18] Budesonide/Formoterol Fumarate [Symbicort 160-4.5 Mcg Inhaler] 2 puff IH BID 11/18/17 [History C onfirmed 01/03/18] Calcium Citrate 500 mg PO TID 11/18/17 [History Confirmed 01/03/18] Cholecalciferol (Vitamin D3) [Vitamin D3] 4,000 unit PO DAILY 11/18/17 [History Confirmed 01/03/18] Febuxostat [Ulo king] 80 mg PO DAILY 11/18/17 [History Confirmed 01/03/18] Furosemide [Lasix] 20 mg PO DAILY 11/18/17 [History Confirmed 01/03/18] Linagliptin [Tradjenta] 5 mg PO DAILY PRN 11/18/17 [History Confirmed ] Lisinopril [Zestril] 10 mg PO DAILY 11/18/17 [History Confirmed 01/03/18] Magnesium Oxide [Magnesium] 250 mg PO BID 11/18/17 [History Confirmed 01/03/18] Metoprolol Tartrate [Lopressor (beta blo cker)] 100 mg PO BID 11/18/17 [History Confirmed 01/03/18] Multivitamin [Daily Multiple Vitamin] 1 ea PO DAILY 11/18/17 [History Confirmed 01/03/18] Pravastatin Sodium 80 mg PO QHS 11/18/17 [History Con firmed 01/03/18] Ropinirole HCl [Requip] 0.25 mg PO QHS 11/18/17 [History Confirmed 01/03/18] Sildenafil Citrate [Revatio] 20 mg PO TID 11/18/17 [History Confirmed 01/03/18] Ubidecarenone [Coenzyme Q-10 ] 100 mg PO DAILY 11/18/17 [History Confirmed 01/03/18] Warfarin [Coumadin] 5 mg PO DAILY 11/18/17 [History Confirmed 01/03/18] hydrALAZINE [Apresoline] 25 mg PO TID 11/18/17 [History Confirmed 01/03/18 ] Ferrous Sulfate 325 mg PO TID 11/29/17 [History Confirmed 01/03/18] Ipratropium/Albuterol Sulfate [Combivent Respimat Inhal Brandywine] 1 puff IH 01/03/18 [History Confirmed 01/03/18] Is last menstrual p eriod known: No Post menopausal: Yes Patient : No PFSH Medical History Atherosclerotic heart disease of [place] coro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 pect veronika (Chronic) Chronic atrial fibrillation (Chronic) GI bleed (Acute) Hyperkalemia (Chronic) HLD (hyperlipidemia) (Chronic) HTN (hypertension) (Chronic) Non-ST elevation (NSTEMI) myocardial infarction ( Chronic) Nonrheumatic aortic (valve) stenosis (Chronic) Nonrheumatic mitral (valve) insufficiency (Chronic) Nonrheumatic tricuspid (valve) insufficiency (Chronic) Other secondary pulmonary hypertension (Chronic) SOB (shortness of breath) (Chronic) Anemia (Acute) Arthritis (Acute) Bloody stool (Acute) Diabetes (Acute) Diverticulitis (Acute) Fatigue (Acute) Heart attack (Acute) Heart disease (Acute) His tory of GI bleed (Acute) History of blood transfusion (Acute) History of pneumonia (Acute) Kidney disease (Acute) Knee pain (Acute) Liver disease (Acute) Obesity (Acute) Osteopenia (Acute) Pulmonary hyp ertension (Acute) Sepsis (Acute) Sepsis secondary to UTI (Acute) Surgical History History of appendectomy (Acute) History of hysterectomy (Acute) Status post right foot surgery (Acute) History of left heart catheterization (LHC) (Resolved) Family History Mother , age 83 Uterine cancer Hypertension Father , age 81 Heart disease Diabetes CAD (coronary artery disease) Hypertension Social History Smoking Status: Never smoker alcohol intake: never substance use type: does not use caffeine : No what type of physical activity do you participate in: none seatbelt use: always do you feel safe at home: Yes HPI HPI HPI: GABBI ROLLE, is a 72 F who presents to the office today for port placement for iron transfusions. The patient is chronically anemic and his receiving multiple iron transfusions weekly. She has very poor venous access and was referred here by Dr. Khan for port pl acement. ROS General General: Yes weight change and fatigue; no appetite, colon cancer, breast cancer or weakness HEENT HEENT: No difficulty swallowing, eye injury, eye surgery, swollen glands or aristeo rseness Endo Endocrine: Yes diabetes mellitus; no thyroid disease, thyroid cancer, Hair loss, heat intolerance or cold intolerance Cardio Cardiovascular: Yes murmur, heart disease, atrial fibrillation, high blood pressure and heart attack; no pacemaker, heart stent, palpitations, shortness of breat with exertion or chest pain Psych Psychiatric: Yes anxiety Resp Respiratory: Yes shortness of breath, No sleep apnea, No cough, No COPD, Yes asthma, No emphysema, No wheezing Gastro Gastrointestinal: No abdominal pain, No nausea or vomiting, No diarrhea, No constipation, Yes blood in stool, No acid reflux , Yes hemorrhoids, No ulcers, No gallbladder problem, Yes black,tarry stools Omer Hematologic: Yes blood thinners, No blood disorders, Yes bleeding, Yes anemia, No blood clots Neuro Neurologic: No weakn ess Exam Const General: cooperative Nutritional Appearance: obese morbidly obese Orientation: alert, oriented x3 Chest Chest palpation AND inspection: normal inspection of the chest Resp Effort AND In spection: normal respiratory effort Auscultation: clear to auscultation bilaterally Cardio Rate: regular rate Rhythm: regular rhythm Heart Sounds: murmur GI Inspection: normal to inspection Extrem Gener al: edema Laterality: bilateral Assessment AND Plan Problems 1. Encounter for insertion of venous access port Z45.2 Plan 1. The patient is having chronic anemia. She had colonoscopy last month by Dr. [place] which is normal. She was referred here for port placement for poor venous access and need for iron infusions by Dr. Khan. 2. I discussed port placement with the patient in detail. I discussed the risks including but not limited to bleeding, infection, pneumothorax. I also discussed the risks of line infection and DVT. The patient understands the risks and agrees to proceed. 3. I recommende d the patient that she stop Coumadin 5 days before the procedure and we will check an INR the day of. Bo Madrid MD Pager: [facility] [address] [place] [address], [address] [place] [address] Office: Coding Level of Care Code Off vis,new,level 3 Diagnoses Encounter for insertion of venous access port Z45.2 8 1517 <Electronically signed by Bo Madrid MD> Date Bo Madrid MD Cosigner Signature: Date (if applicable) CC: Sara Swartz NAPHTHALENE OPERATOR; Halley Khan MD 01-Jan-2018 Oncology Visit Report Result: Comments: See Note; NOTES: [facility] [address] [place] [id number] OFFICE VISIT Date of Service: 01/01/18 1254 MR#: [id number] Acct: [id number] Name: GABBI ROLLE Rep #: [id number] : 1945 From: Halley Khan MD Age/Sex: 72/F Location: [facility] Status: Signed - Problem List (1) Anemia Status: Chronic Qualifiers: Anemia type: iron deficiency Iron deficie ncy anemia type: unspecified iron deficiency Qualified Code(s): D50.9 - Iron deficiency anemia, unspecified (2) Iron deficiency anemia Status: Chronic Qualifiers: Iron deficiency anemia type: chronic b lood loss Qualified Code(s): D50.0 - Iron deficiency anemia secondary to blood loss (chronic) (3) CRF (chronic renal failure) Status: Chronic Qualifiers: Chronic kidney disease stage: stage 3 (moderate ) Qualified Code(s): N18.3 - Chronic kidney disease, stage 3 (moderate) (4) Anemia in chronic kidney disease (CKD) Status: Chronic - Date of Service Date of Service:: 01/01/18 - Chief Complaint Fatig ue, anemia - History of Present Illness Patient is a 72-year-old female with a past medical history notable for morbid obesity diabetes chronic renal failure hypertension chronic atrial fibrillation o n long-term anticoagulation and chronic GI blood loss attributed to diverticular disease (most recent colonoscopy was in 2017). Patient is being seen for chronic, recurrent anemia that has been attribut ed to chronic and recurring iron deficiency from chronic GI blood loss. She has been on oral iron supplement averaging 1-3 (usually 2/d) tablets daily for the past few years . She has received IV iron s zev 2017 and needed blood transfusion on several occasions for severe symptomatic anemia. There had been occasions when her Coumadin anticoagulation had to be held due to increasing GI blood loss despi te the fact that she is at an increased risk for cerebrovascular events from chronic atrial fibrillation. Her anemia has responded in the past to oral and intravenous iron but tends to recur. - Past Medical/Social History Past Medical History Past Medical History: Anemia,Bleeding disorder,Blood transfusion, Diabetes mellitus,Diverticulitis,Edema,GI bleed, Heart disease,Hyperlipidemia,Hypertension, Liver disease,Obesity,Osteopenia,Pneumonia, Postmenopausal,Vitamin D deficiency,Fatigue Other Past Medical History: PULMONARY HYPERTENTION UTI (SEPTIC) Past Surgical History Surgical: Appendectomy,Hys terectomy Other Surgical History: RIGHT FOOT SURGERY 1986 Family History Paternal Past Medical History: Heart disease Maternal Past Medical History: Unknown Maternal History of Cancer: Uterine cancer Social History Smoking Status Never smoker Review of Systems Constitutional:: Reports: Weakness, Fatigue. Denies: Fever, Sweats, Weight loss, Appetite change, Chills Cardiovascular:: Reports: Dyspn ea on exertion. Denies: Chest pain, Palpitations, Orthopnea, PND, Shortness of breath Respiratory: Reports: Shortness of breath upon exertion. Denies: Cough, Hemoptysis, Shortness of Breath, Wheezing Ga strointestinal:: Reports: Melena, Hematochezia - Intermittent, chronic, unchanged. Denies: Abdominal pain, Nausea, Vomiting, Diarrhea, Constipation Genitourinary: Reports: - - No vaginal bleeding. Denie s: Hematuria, Flank pain Musculoskeletal:: Reports: Arthritis - Knees chronic, Arthralgia. Denies: Back pain, Myalgia Skin: Denies: Rash, Skin Changes, Wounds Neurological:: Denies: Headache, Dizziness, Visual changes, Tinnitus, Hearing loss Psychiatric: Denies: Anxiety, Depression, Homicidal Ideations, Suicidal Ideations Vital Signs Height 5 ft 7 in Weight: 171.8 kg Weight in Pounds 378.8 lbs Pulse Ox 94 - Physical Exam General: Alert, Oriented x3, No apparent distress, - - Morbidly obese HEENT: Atraumatic, PERRLA, EOMI, Normocephalic Oropharynx:: Pale mucosa, Dry mucosa Neck:: Supple, Trachea midline. Negative for: JVD, bilateral Cardiac:: Irregular rate Lungs: Clear to auscultation Abdomen:: Soft, Non-tender Extremities:: Edema - Gross Laboratory Data: Laboratory Tests Erythropoietin 105. 6 H (2.6-18.5) mIU/mL Laboratory Tests RBC Hgb Hct 35.7 L Iron Saturation 5.6 L 12.8 L Ferritin 46 33 RBC 2.84 L Hgb 8.2 L 8.3 L Hct 27.9 L Iron Saturation 21.2 Ferritin 32 RBC Hgb 7.1 L 7.3 L 7.6 L Hct Iron Saturation Ferritin RBC Hgb 7.4 L 6.8 L 8.4 L Hct Iron Saturation Ferritin RBC Hgb 7.9 L 9.2 L Hct Iron Saturation 10.4 L Ferritin 43 RBC Hgb 8.2 L Hct Iron Saturation 19.7 Ferritin 69 A ssessment and Plan 72-year-old female with chronic recurring anemia most consistent with multiple factors includin. Chronic recurrent iron deficiency anemia due to chronic GI blood loss presumed div erticular disease ( not a candidate for surgical intervention due to her significant comorbidities, follow-up with Dr. Hobbs, to consider capsule study) despite oral iron supplementation (group home) . Patient was transfused with packed red cells in 2016 and again in November 2017 for severe symptomatic anemia patient required IV iron and does respond. Will continue to supplement PO fe with IV as guided by B.W. Target Transferrin sat >20% and ferritin >100. IV Venofer 300 mg X 3 more doses and reassess in 1M 2. Anemia of chronic renal failure. not a candidate for ESAT yet until iron de ficiency is corrected and target iron studies reached. 3. Anemia due to polypharmacy and minor contributor but expected side effect. 4. Worsening of her chronic GI blood loss can be attributed to Coum mark anticoagulation on top of colonic pathology nonetheless the benefit in prevention of cerebrovascular events and absence of serious life-threatening bleeding outweighs the risk. Patient was seen wa s her impression and plan discussed. Primary Care Provider: Sara Swartz Referring Provider: Halley Khan MD 01/01/18 1319 <Electronically signed by Halley Khan MD> D ate Halley Khan MD Cosigner Signature: Date (if applicable) CC: 23-Dec-2017 Special CXR (Obl/Decub/A/L) Result: Comments: See Note; NOTES: [facility] Imaging Services [address] [place] [address] Special CXR (Obl/Decub/A/L) MR#: [id number] Acct: [id number] Name: GABBI ROLLE Rep #: [id number] : 1945 F 72 From: Geovanni Roper MD PCP: Sara Swartz NP Status: REG CLI Study: Special CXR (Obl/Decub/A/L) Date of Exam: 12/23/17 Exam# [id number] Ordering Dr: Carlos Nelson MD STUDY: X-RAY CHEST REASON FOR EXAM: Female, 72 years old. Dyspnea TECHNIQUE: Bilateral decubitus. COMPARISON: Radiographs of the same date.. FINDINGS: On the l eft there is a small layering pleural effusion. On the right no significant free- flowing fluid. Electronically Signed: Geovanni Roper MD at 16:00 EDT , Service support 08-26 [phone], RAD/Special CXR (Obl/Decub/A/L) CC: Sara Swartz NP; Carlos Nelson MD Manager Strategic Marketing: Signed 23-Dec-2017 Special CXR (Obl/Decub/A/L) Result: Comments: See Note; NOTES: [facility] Imaging Services [address] [place] [address] Special CXR (Obl/Decub/A/L) MR#: [id number] Acct: [id number] Name: GABBI ROLLE Rep #: [id number] : 1945 F 72 From: Geovanni Roper MD PCP: Sara Swartz NP Status: REG CLI Study: Special CXR (Obl/Decub/A/L) Date of Exam: 12/23/17 Exam# [id number] Ordering Dr: Carlos Nelson MD STUDY: X-RAY CHEST REASON FOR EXAM: Female, 72 years old. Pleural effusion. TECHNIQUE: Bilateral decubitus. COMPARISON: Radiographs of the same date.. FINDINGS: On the left there is a small layering pleural effusion. On the right no significant free-flowing fluid. Electronically Signed: Geovanni Roper MD at 16:01 EDT , Service s upport , RAD/Special CXR (Obl/Decub/A/L) CC: Sara Swartz NP; Carlos Nelson MD Manager Strategic Marketing: Signed 23-Dec-2017 Chest PA and Lateral Result: Comments: See Note; NOTES: [facility] Imaging Services [address] [place] [address] Chest PA and Lateral MR#: [id number] Acct: [id number] Name: GABBI ROLLE Rep #: [id number] : 1945 F 72 From: Geovanni Roper MD PCP: Sara Swartz NP Status: REG CLI Study: Chest PA and Lateral Date of Exam: 12/23/17 Exam# [id number] Ordering Dr: Carlos Nelson MD STUDY: X-RAY CHEST REASON FOR EXAM: Female, 72 years old. Dyspnea. Pleural effusion. TECHNIQUE: Frontal and lateral views of the chest. COMPARISON: 11/30/2017. FINDINGS: Norm al lung volumes. Stable interstitial and bronchovascular prominence including peribronchial cuffing. Findings are consistent with congestion and interstitial edema. Atelectasis or infiltrate in the left lung base with small pleural effusion also stable. Mild to moderate cardiomegaly is stable. Degenerative changes throughout the spine with ankylosis. RAD/Chest PA and Lateral IMPRE SSION: No significant change. Electronically Signed: Geovanni Roper MD at 16:00 EDT , Service support , CC: Sara Swartz NAPHTHALENE OPERATOR; Carlos Nelson MD Manager Strategic Marketing: Signed 06-Dec-2017 Oncology Visit Report Result: Comments: See Note; NOTES: [facility] Oncology [employer] [facility] [place] [address] OFFICE VISIT Date of Service: 12/05/17 1029 MR#: [id number] Acct: [id number] Name: GABBI ROLLE Rep #: [id number] : 1945 From: Halley Khan MD Age/Sex: 72/F Location: ONC Status: Signed - Problem List (1) Anemia Status: Chronic Qualifiers: Anemia type: iron deficiency Iron deficie ncy anemia type: unspecified iron deficiency Qualified Code(s): D50.9 - Iron deficiency anemia, unspecified (2) Iron deficiency anemia Status: Chronic Qualifiers: Iron deficiency anemia type: chronic b lood loss Qualified Code(s): D50.0 - Iron deficiency anemia secondary to blood loss (chronic) (3) CRF (chronic renal failure) Status: Chronic - Date of Service Date of Service:: 12/05/17 - Chief Comp laint Anemia follow-up following recent hospitalization - History of Present Illness Patient is a 71-year-old female with a past medical history notable for morbid obesity diabetes chronic renal failu re hypertension chronic atrial fibrillation on long-term anticoagulation and chronic GI blood loss attributed to diverticular disease (most recent colonoscopy was in 2016). Patient is being seen in [facility] for chronic, recurrent anemia that has been attributed to chronic and recurring iron deficiency from chronic GI blood loss. She has been on oral iron supplement averaging 1-3 (usually 2/d) tabl ets daily for the past 1-2 years now. She has received IV iron in February 2017 and needed blood transfusion in 2017 for severe symptomatic anemia. There had been occasions when her Coumadin anticoagulation had to be held due to increasing GI blood loss despite the fact that she is at an increased risk for cerebrovascular events from chronic atrial fibrillation. Her anemia has responded in the past to ora l and intravenous iron but tends to recur. - Interval History Hospitalized with acute on chronic GI blood loss anemia Date of Admission: 11/29/17 Date of Discharge: 12/02/17 - Past Medical/Social Hi story Past Medical History Past Medical History: Anemia,Bleeding disorder,Blood transfusion, Diabetes mellitus,Diverticulitis,Edema,GI bleed, Heart disease,Hyperlipidemia,Hypertension,Liver disease,Obe sity,Osteopenia,Pneumonia, Postmenopausal,Vitamin D deficiency,Fatigue Other Past Medical History: PULMONARY HYPERTENTION UTI (SEPTIC) Past Surgical History Surgical: Appendectomy,Hysterectomy Other S urgical History: RIGHT FOOT SURGERY 1985 Family History Paternal Past Medical History: Heart disease Maternal Past Medical History: Unknown Maternal History of Cancer: Uterine cancer Social History Smoking Status Never smoker Review of Systems Constitutional:: Reports: Weakness, Fatigue. Denies: Fever, Sweats, Weight loss, Appetite change, Chills Cardiovascular:: Reports: Dyspnea on exertion. D enies: Chest pain, Palpitations, Orthopnea, PND, Shortness of breath Respiratory: Reports: Shortness of breath upon exertion. Denies: Cough, Hemoptysis, Shortness of Breath, Wheezing Gastrointestinal:: Reports: Melena - Intermittent. Denies: Abdominal pain, Nausea, Vomiting, Diarrhea, Constipation, Hematochezia Genitourinary: Denies: Dysuria, Hematuria, 15, Flank pain Musculoskeletal:: Reports: Arthri tis, Arthralgia. Denies: Back pain, Myalgia Skin: Denies: Rash, Skin Changes, Wounds Neurological:: Denies: Headache, Dizziness, Visual changes, Tinnitus, Hearing loss Psychiatric: Denies: Anxiety, Depr ession, Homicidal Ideations, Suicidal Ideations Vital Signs Height 5 ft 7 in Weight: 171.821 kg Weight in Pounds 378.8 lbs Pulse Ox 93 - Physical Exam General: Alert, Oriented x3, No apparent distr ess, - - Orbitally obese ECOG 2 HEENT: Atraumatic, PERRLA, EOMI, Normocephalic Oropharynx:: Dry mucosa Neck:: Supple, Trachea midline. Negative for: JVD, bilateral Cardiac:: Regular rate, Normal S1, [place] mal S2, Irregular rate. Negative for: Murmur Lungs: Clear to auscultation, Excusion symmetrical. Negative for: Rhonchi, Wheezes Abdomen:: Soft, Non-tender. Negative for: Hepatosplenomegaly Extremities:: Edema - Gross nonpitting. Negative for: Cyanosis Neurological: Neuro grossly intact Skin:: Negative for: Lesions, Rash, Petechiae, Ecchymosis Psychiatric:: Appropriate affect, Euthymic Lymphatics:: Neg ative for: Cervical lymphadenopathy, Supraclavicular lymphadenopathy Laboratory Data: Laboratory Tests WBC 6.9 (4.4-11.0) K/mm3 RBC 3.11 L (4.2-5.4) M/mm3 Assessment and Plan 72-year-old female with chronic recurring anemia most consistent with multiple factors includin. Chronic recurrent iron deficiency anemia due to chronic GI blood loss presumed diverticular disease ( not a candidate for horton rgical intervention due to her significant comorbidities, follow-up with Dr. Hobbs, to consider capsule study) despite oral iron supplementation (group home) . Patient was transfused with packed red fatou ls in 2016 and again in November 2017 for severe symptomatic anemia patient required IV iron and does respond. Will continue to supplement PO fe with IV as guided by B.W. Target Transferrin sat >20 % and ferritin >100. IV Venofer 300 mg X 3 doses 11/2017 and reassess in 1M 2. Anemia of chronic renal failure. not a candidate for ESAT yet iron deficiency is corrected and target iron studies reached. 3. Anemia due to polypharmacy and minor contributor but expected side effect. 4. Worsening of her chronic GI blood loss can be attributed to Coumadin anticoagulation on top of colonic patholo gy nonetheless the benefit in prevention of cerebrovascular events and absence of serious life-threatening bleeding outweighs the risk. Patient was seen was her impression and plan discussed. Medications: Medications Added to Medication List This Visit Iron Sucrose Complex [Venofer] 300 mg Med 12/05/17 10:30 Active 0.9% Normal Saline 250 ml IV X1 Primary Care Provider: Sara Olvera Provider: Halley Khan MD 12/06/17 0901 <Electronically signed by Halley Khan MD> Date Halley Steeligner Si gnature: Date (if applicable) CC: sara swartz 29-Nov-2017 Chest 1 View (Portable) Result: Comments: See Note; NOTES: [facility] Imaging Services [address] [place] [address] Chest 1 View (Portable) MR#: [id number] Acct: [id number] Name: GABBI ROLLE Rep #: [id number] : 1945 F 72 From: Norah Arreaga MD PCP: Sara Swartz NP Status: REG ER Study: Chest 1 View (Portable) Date of Exam: 11/29/17 Exam# [id number] Ordering Dr: Gabi Gardner MD STUDY: X-R AY CHEST REASON FOR EXAM: Female, 72 years old. Coughing weakness and low hemoglobin. TECHNIQUE: Single AP portable view of the chest. Apical lordotic. COMPARISON: Prior chest radiograph of November 18, 2017. Prior PA and lateral chest of August 06, 2017 FINDINGS: The right lung is expanded and without consolidation or atelectasis from baseline radiograph of Dece mb2016. There appears to be a new airspace opacity at the left lung base at the costophrenic angle. Otherwise stable findings of the left lung. Continued cardiomegaly. Normal mediastinum and hil a. Normal visualized pulmonary arteries. There is atherosclerotic calcification of the aortic arch with tortuosity. Normal visualized thoracic spine. Normal visualized ribs, clavicles, and shoulders. There is no demonstrated abnormality of the visualized soft tissue structures of the upper abdomen. RAD/Chest 1 View (Portable) IMPRESSION: Right lung remains expanded and baseline in appearance without new consolidation or focal atelectasis. New opacity at the left lung base/costophrenic angle. Possible new area of consolidation or atelectasis . This may be in part secondary to a exaggerated epicardiac fat pad as this film is apical lordotic compared to prior standard PA radiographs. Continued mild cardiomegaly. Negative for pulmonary venous congestion. Electronically Signed: Norah Arreaga MD at 21:39 EDT , Service support , CC: Sara Swartz NAPHTHALENE OPERATOR; Gabi Gardner MD Manager Strategic Marketing: Signed 22-Nov-2017 12 Lead Electrocardiogram Result: Comments: See Note; NOTES: [facility] Cardiovascular Services [address] [place] [address] 12 Lead EKG 11/18/17 1440 MR#: [id number] Acct: [id number] Name: GABBI ROLLE Alexandro Saravia p #: [id number] : 1945 72 From: Niraj Raymundo MD Attending Dr: Status: DEP ER Ordering Dr: Ariane Lakhani MD Date: 11/18/17 Location: ED Sex: F C Admitted: Test Reason : SOB Blood Pressure : */ mmHG Vent. Rate : 085 BPM Atrial Rate : 058 BPM P-R Int : 000 ms QRS Dur : 088 ms QT Int : 372 ms P-R-T Axes : 000 050 185 degrees QTc Int : 442 ms Atrial fibrillation Nonspecific ST and T wave a bnormality Abnormal ECG Confirmed by RIGOBERTONIRAJ ANNE MD ([id number]), newspaper photo editor JONATHON ROLLE ([id number]) on 11/22/2017 12:57:07 PM Referred By: JOO Confirmed By:NIRAJ RAYMUNDO MD 11/22/17 1257 Date Niraj Raymundo MD CC: Sara Swartz NP; Ariane Lakhani MD Signed 18-Nov-2017 Emergency Department Summary Result: Comments: See Note; NOTES: [facility] Medical Records Department [address] [place] [address] Emergency Department Summary 11/18/17 1735 MR#: [id number] Acct: [id number] Name: GABBI ROLLE Rep #: [id number] : 1945 72 From: Ariane Lakhani MD PCP: Sara Swartz NP Status: REG ER - ER Visit Summary Date of Service: 11/18/17 Chief Complaint: Shortness of breath Hist ory of Present Illness: The patient is a 72 F with a history of shortness of breath secondary to pulmonary hypertension. Patient also has chronic anemia secondary to mild chronic GI bleed. She recently received iron infusions in hopes of increasing her hemoglobin. Patient was started on Revatio 3 weeks ago to help treat the pulmonary hypertension. She has noticed increasing shortness of breath since s tarting the Revatio. She called Dr. Nelson's office today and was told to continue taking the medication as it may take 6 weeks to see benefit. She called her plasterer helper today to see if she needed to have her blood counts redrawn and she was encouraged to follow-up in the emergency room secondary to her increasing shortness of breath. Patient does not have orthopnea. She reports shortness of breath with any movement or exertion. Physical Examination: Vital signs are unremarkable. Patient sitting upright in bed, alert and conversant. Head neck examination is unremarkable. Heart is irregular with a 3/6 murmur. Lung sounds are grossly clear on auscultation. Abdomen is soft, obese, nontender. Lower extremity examination does reveal 3+ pitting edema at the ankles. Test Results: Two-view chest x-ra y is consistent with CHF. EKG is A. fib at 85 with no sign of acute ischemia. CBC was normal white count with hemoglobin of 8.3. This is consistent with her most recent hemoglobin level. Chemistry studi es reveal BUN of 30 and a creatinine 1.48. This again is consistent with her baseline. INR is therapeutic at 2.8. Troponin is less than 0.02. BNP is 226. Emergency Department Course and Treatment: On r epeat examination patient is resting comfortably. She does not tell me that her Lasix was recently decreased in dose. She does not have a known history of problems with CHF. I spoke with her cardiologis t, Dr. Raymundo. Patient will get a dose of IV Lasix now and will increase her Lasix at home back to her prior dosing. Treatment Plan: [] Disposition: Discharge Impression: Dyspnea This note was gene rated with [employer] dictation software. It may contain incorrect words, spelling, and punctuation that were not noted in review of the chart prior to signing ED Disposition - Plan for ED Patient: Chief Complaint: Shortness of Breath Referrals: Sara Swartz [Primary Care Provider] - What to do if you have Problems For any increased pain, shortness of breath, bleeding, nausea or vomiting, chest pain, or any unexpected problems, contact your Primary Care Provider. Call [facility] ([phone]) or report to the closest Emergency Room. Call 911 if necessary. 11/18/171747 <Electronica lly signed by Ariane Lakhani MD> Date Ariane Lakhani MD Cosigner Signature (If Indicated): Date CC: Sara Swartz NAPHTHALENE OPERATOR 18-Nov-2017 Discharge Instruction Result: Comments: See Note; NOTES: [facility] Medical Records [facility] [address] [address] [facility] [address] Discharge Instruction 11/18/171739 MR#: [id number] Acct: [id number] Name: GABBI ROLLE Rep #: [id number] : 1945 72 From: Ariane Lakhani MD PCP: Sara Swartz NP Status: REG ER ED Disposition - Plan for ED Patient: Disposition: Home or Assisted Living Chief Complaint: Sh ortness of Breath Instructions: ED Dyspnea Shortness of Breath, ED CHF General Referrals: Sara Swartz [Primary Care Provider] - Niraj Raymundo MD [STAFF PHYSICIAN] - Carlos Nelson MD [STAFF PHYSICIAN] - What to do if you have Problems For any increased pain, shortness of breath, bleeding, nausea or vomiting, chest pain, or any unexpected problems, contact your Primary Care Provider. Call [facility] ([phone]) or report to the closest Emergency Room. Call 911 if necessary. 11/18/17 1743 <Electronically signed by Ariane Lakhani MD> Date Ariane Lakhani MD Cosigner Signature (If Indicated): Date CC: Sara Swartz NP 18-Nov-2017 Chest PA and Lateral Result: Comments: See Note; NOTES: [facility] Imaging Services [address] [place] [address] Chest PA and Lateral MR#: [id number] Acct: [id number] Name: GABBI ROLLE Rep #: [id number] : 1945 F 72 From: Aaron Kenyon MD PCP: Sara Swartz NP Status: REG ER Study: Chest PA and Lateral Date of Exam: 11/18/17 Exam# [id number] Ordering Dr: Ariane Lakhani MD STUDY: X-RAY CHEST REASON FOR EXAM: Female, 72 years old. SOB, recent start of pulmonary hypertension meds, pt. states she doesn't feel like they are working properly TECHNIQUE: Frontal and lateral views of the chest. COMPARISON: None. FINDINGS: Ill-defined groundglass opacities are seen in the perihilar regions and lung bases suggesting pulmonary edema. There is no demonstrated pleural abnormality. There is moderate cardiac enlargement. Normal mediastinum and veronika. There is prominence of the pulmonary hilar arteries and peripheral pulmonary arteries, consistent with congesti ve heart failure (CHF). Normal visualized aortic arch and descending thoracic aorta. Normal visualized thoracic spine. Normal visualized ribs, clavicles, and shoulders. There is no demonstrated abnorm ality of the visualized soft tissue structures of the upper abdomen. RAD/Chest PA and Lateral IMPRESSION: Congestive heart failure. Electronical ly Signed: Aaron Kenyon MD at 15:32 EDT Tel , Service support , CC: Sara Swartz NAPHTHALENE OPERATOR; Ariane Lakhani MD Manager Strategic Marketing: Signed 04-Nov-2017 Oncology Visit Report Result: Comments: See Note; NOTES: [facility] Oncology [address] [place] [address]. [place] [address] OFFICE VISIT Date of Service: 11/04/17 1252 MR#: [id number] Acct: [id number] Name: GABBI ROLLE Rep #: [id number] : 1945 From: Halley Khan MD Age/Sex: 72/F Location: OMD Status: Signed - Problem List (1) Anemia Status: Chronic Qualifiers: Anemia type: iron deficiency Iron deficie ncy anemia type: unspecified iron deficiency Qualified Code(s): D50.9 - Iron deficiency anemia, unspecified (2) Iron deficiency anemia Status: Chronic (3) CRF (chronic renal failure) Status: Chronic - Date of Service Date of Service:: 11/04/17 - Chief Complaint Fatigue, anemia - History of Present Illness Patient is a 71-year-old female with a past medical history notable for morbid obesity diab etes chronic renal failure hypertension chronic atrial fibrillation on long-term anticoagulation and chronic GI blood loss attributed to diverticular disease (most recent colonoscopy was in 2017). Swathi rowley is being seen in consultation for chronic, recurrent anemia that has been attributed to chronic and recurring iron deficiency from chronic GI blood loss. She has been on oral iron supplement averagin g 1-3 (usually 2/d) tablets daily for the past 1-2 years now. She has received IV iron in February 2017 and needed blood transfusion in 2017 for severe symptomatic anemia. There had been occasions when her Coumadin anticoagulation had to be held due to increasing GI blood loss despite the fact that she is at an increased risk for cerebrovascular events from chronic atrial fibrillation. Her anemia has resp onded in the past 2 oral and intravenous iron but tends to recur. - Past Medical/Social History Past Medical History Past Medical History: Anemia,Bleeding disorder,Blood transfusion, Diabetes mellitu s,Diverticulitis,Edema,GI bleed, Heart disease,Hyperlipidemia,Hypertension,Liver disease,Obesity,Osteopenia,Pneumonia, Postmenopausal,Vitamin D deficiency,Fatigue Other Past Medical History: PULMONARY H YPERTENTION UTI (SEPTIC) Past Surgical History Surgical: Appendectomy,Hysterectomy Other Surgical History: RIGHT FOOT SURGERY 1985 Family History Paternal Past Medical History: Heart disease Materna l Past Medical History: Unknown Maternal History of Cancer: Uterine cancer Social History Smoking Status Never smoker Review of Systems Constitutional:: Reports: Weakness, Fatigue. Denies: Fever, S weats, Weight loss, Appetite change, Chills Cardiovascular:: Reports: Dyspnea on exertion. Denies: Chest pain, Palpitations, Orthopnea, PND, Shortness of breath Respiratory: Reports: Shortness of breath upon exertion. Denies: Cough, Hemoptysis, Shortness of Breath, Wheezing Gastrointestinal:: Reports: Hematochezia - Almost on a daily basis, sees GI regularly, high risk for surgical intervention due to comorbidities. Denies: Abdominal pain, Nausea, Vomiting, Diarrhea, Constipation Genitourinary: Denies: Dysuria, Hematuria, 15, Flank pain Musculoskeletal:: Reports: Arthritis - Degenerative joint disea se chronic, Arthralgia. Denies: Back pain, Myalgia Skin: Denies: Rash, Skin Changes, Wounds Neurological:: Denies: Headache, Dizziness, Visual changes, Tinnitus, Hearing loss Psychiatric: Denies: Anxiet y, Depression, Homicidal Ideations, Suicidal Ideations Vital Signs Height 5 ft 7.5 in Weight: 162.386 kg Weight in Pounds 358.0 lbs Pulse Ox 97 - Physical Exam General: Alert, Oriented x3, No appar ent distress, - - Morbidly obese HEENT: Atraumatic, PERRLA, EOMI, Normocephalic Oropharynx:: Dry mucosa Neck:: Supple, Trachea midline. Negative for: JVD, bilateral Cardiac:: Regular rate, Regular rhyth m, Normal S1, Normal S2. Negative for: Murmur Lungs: Clear to auscultation, Excusion symmetrical. Negative for: Rhonchi, Wheezes Abdomen:: Soft, Non-tender, Non- distended. Negative for: Hepatosplenomega ly Extremities:: Edema - Gross nonpitting chronic lymphedema with skin changes consistent with chronic venous insufficiency, no cellulitis. Negative for: Cyanosis Neurological: Neuro grossly intact Skin :: Negative for: Lesions, Rash, Petechiae, Ecchymosis Psychiatric:: Appropriate affect, Euthymic Lymphatics:: Negative for: Cervical lymphadenopathy, Supraclavicular lymphadenopathy Laboratory Data: Re viewed in EMR Laboratory Tests Hgb 10.3 L 8.2 L Hct 35.7 L 27.9 L Iron Saturation 12.8 L Ferritin 33 Hgb Hct Iron Saturation 21.2 Ferritin 32 Assessment and Plan 72-year-old female with chronic r ecurring anemia most consistent with multiple factors includin. Chronic recurrent iron deficiency anemia due to chronic GI blood loss presumed diverticular disease (colonoscopy 2017, not a candidate for surgical intervention due to her significant comorbidities, follow-up with Dr. Hobbs) despite oral iron supplementation (intermediate frame tender) . Patient was transfused with packed red cells in 2017 for sever e symptomatic anemia patient required IV iron and did respond. Will supplement PO fe with IV as guided by B.W. Target Transferrin sat >20% and ferritin >100. IV Venofer 300 mg X 3 doses 3-11/2017 and reassess in 1M 2. Anemia of chronic renal failure. not a candidate for ESAT yet with residual iron deficiency. 3. Anemia due to polypharmacy and minor contributor but expected side effect . Worsening of her chronic GI blood loss can be attributed to Coumadin anticoagulation on top of colonic pathology nonetheless the benefit in prevention of cerebrovascular events and absence of serious life-threatening bleeding outweighs the risk. Patient was seen was her impression and plan discussed. Medications: Prescriptions This Visit Medication Instructions Recorded Amoxicillin 500 m g PO UD PRN 05/10/17 Warfarin [Coumadin (PBKC)] 5 mg PO DAILY 05/10/17 Primary Care Provider: Sara Swartz Referring Provider: Halley Khan MD 11/04/17 1319 <Electronically signed by Trevor Khan MD> Date Halley Khan MD Cosigner Signature: Date (if applicable) CC: Sara Swartz; Heron Hobbs 19-Oct-2017 Urgent Care Visit Report Result: Comments: See Note; NOTES: [facility] [address] [place] [address] OFFICE VISIT Date of Service: 10/19/17 MR#: [id number] Acct: [id number] Name: GABBI ROLLE p #: [id number] : 1945 Provider: Serge DOE Age/Sex: 72/F Location: [facility] [email or web address] Status: Signed Intake Vital Signs10/19/17 Height 5 ft 7 in 10/19/17 Weight: 368 lb 10/19/17 Body Mass Index (BMI) 57.6 Intake Visit Reasons: Urinary tract infection Is patient in pain?: No Allergies No Known Allergies Allergy (Verified 10/19/17 10:27) Medications Cholecalciferol (Vitamin D3) [Vitamin D3] 2, 000 unit PO BID 12/09/16 [History Confirmed 10/19/17] Lisinopril [Zestril] 10 mg PO DAILY 12/09/16 [History Confirmed 10/19/17] Magnesium 200 mg PO BID 12/09/16 [History Confirmed 10/19/17] Metoprolol T artrate [Lopressor (beta long)] 100 mg PO BID 12/09/16 [History Confirmed 10/19/17] Multivitamins,Ther W-Minerals [Multivitamin With Minerals] 1 tab PO DAILY 12/09/16 [History Confirmed 10/19/17] Pra vastatin [Pravachol] 80 mg PO QHS 12/09/16 [History Confirmed 10/19/17] Ubidecarenone [Co Q-10] 200 mg PO DAILY 12/09/16 [History Confirmed 10/19/17] Ferrous Sulfate [Iron] 325 mg PO BID 03/01/17 [Histo ry Confirmed 10/19/17] Furosemide [Lasix] 20 mg PO DAILY 03/01/17 [History Confirmed 10/19/17] Amoxicillin 500 mg PO UD PRN 05/10/17 [History Confirmed 10/19/17] Warfarin [Coumadin (PBKC)] 5 mg PO DAILY 05/10/17 [History Confirmed 10/19/17] calcium citrate 250 mg tablet 250 mg PO QDAY tab 09/18/17 [History Confirmed 10/19/17] hydralazine 10 mg tablet 10 mg PO TID tab 09/18/17 [History Confirmed ] nitrofurantoin monohydrate/macrocrystals 100 mg capsule 1 cap PO Q12H 7 Days #14 cap 10/19/17 [Rx Confirmed 10/19/17] PFSH Medical History Atherosclerotic heart disease of [place] coro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 pectoris (Chronic) Chronic atrial fibrillation (Chronic) GI bleed (Chronic) Hyperkalemia (Chronic) HLD (hyperlipidemia) (Chronic) HTN (hypertension) (Chronic) Non-ST elevation (NSTEMI) m yocardial infarction (Chronic) Nonrheumatic aortic (valve) stenosis (Chronic) Nonrheumatic mitral (valve) insufficiency (Chronic) Nonrheumatic tricuspid (valve) insufficiency (Chronic) Other secondary p ulmonary hypertension (Chronic) SOB (shortness of breath) (Chronic) Anemia (Acute) Arthritis (Acute) Bloody stool (Acute) Diabetes (Acute) Diverticulitis (Acute) Fatigue (Acute) Heart attack (Acute) Hea rt disease (Acute) History of GI bleed (Acute) History of blood transfusion (Acute) History of pneumonia (Acute) Kidney disease (Acute) Knee pain (Acute) Liver disease (Acute) Obesity (Acute) Osteopenia (Acute) Pulmonary hypertension (Acute) Sepsis (Acute) Sepsis secondary to UTI (Acute) Surgical History History of appendectomy (Acute) History of hysterectomy (Acute) Status post right foot surgery (Acute) History of left heart catheterization (LHC) (Resolved) Family History Mother , age 83 Uterine cancer Hypertension Father , age 81 Heart disease Diabetes CAD (coronary artery di sease) Hypertension Social History Smoking Status: Never smoker alcohol intake: never substance use type: does not use caffeine: No what type of physical activity do you participate in: none seat belt use: always do you feel safe at home: Yes HPI HPI Details: GABBI ROLLE, is a 72 F who presents to the office today for burning with urination as well as increased frequency starting last ni ght. Patient states that she has had a UTI in the past with similar type symptoms. She denies hematuria. She denies pelvic or abdominal pain. No nausea, vomiting, diarrhea. No fever, chills, sweats. No other associated symptoms or alleviating/aggravating factors. ROS Const Constitutional: No body ache, chills or fever(s) Resp Respiratory: No shortness of breath Cardio Cardiology: No lightheadedness, palpitations or irregular heart rhythm Gastro GI: No abdominal pain Genitourinary- Female: Positive for burning urination, painful urination and urinary frequency; no pelvic pain, painful intercourse or blood in urine Neuro Neurology: No confusion or behavioral changes Psych Psychiatric: No confusion, No behavioral changes Exam Const General: cooperative, healthy appearing Resp Effort AND Inspect ion: normal respiratory effort Auscultation: Bilateral: Clear to Auscultation Cardio Palpation: normal PMI Rate: regular rate Rhythm: regular rhythm Heart Sounds: other (3/6 systolic murmur) GI Ausculta tion: normal bowel sounds General: No CVA tenderness, bimanual renal exam normal bilaterally Neuro General: alert, CN's II-XI intact bilaterally Psych Appearance: grossly normal Mental Status: mental status grossly normal Assessment AND Plan 1. Acute cystitis without hematuria N30.00 Status Acute Plan Encouraged to get plenty of rest, drink lots of clear liquids, and use Tylenol or Ibuprofen (unl ess contraindicated) for fever and comfort. Patient also educated on other symptomatic management techniques. To be seen in 7-10 days if no improvement; sooner if worsening of symptoms. Patient advised of potential red flags when appropriate report to the ED. Patient verbalized understanding of all the above. This note was generated with [employer] dictation software. It may contain incorrect words, spel ling, and punctuation that were not noted in checking the note before signing. Plan Detail Other Orders Orders: Other Medications New: nitrofurantoin monohyd/m-cryst 100 mg administer with a meal/food 1 cap PO Q12H 7 days ; swallow whole; do not open, crush, dissolve , or chew Coding Level of Care Code Off vis,est,level 3 Diagnoses Acute cystitis without hematuria N30.00 Urinary tract infection ty pe: acute cystitis Hematuria presence: without hematuria 10/19/17 1055 <Electronically signed by Serge DOE> Date Serge DOE Cosigner Signature: Date (if applicable) CC: -Sep-2017 Cardiology Visit Report Result: Comments: See Note; NOTES: [facility] [address] [place] [address]. [address] [place] [address] OFFICE VISIT Date of Service: 09/18/17 MR#: [id number] Acct: [id number] Name: GABBI ROLLE Rep #: [id number] : 1945 Provider: DANIELE Figueredo Age/Sex: 72/F [place] [facility] [facility] [place]: Signed HPI 4 M FU: Details: GABBI ROLLE, is a 72 F who [facility] the [facility] today [facility] Patient has a history of chronic persistent atrial fibrillation, valvular heart disease with mitral valve regurgitation and aortic valve stenosis, minimal coronary artery dise ase, pulmonary hypertension, and obstructive sleep apnea. Pt. denies chest, arm, jaw, or neck discomfort. Her exercise tolerance is stable though very minimal. Pt. denies symptoms of CHF, palpitations, lightheadedness, dizziness, near syncope, or syncopal episodes. Pt. denies edema or claudication issues. Pt. denies orthopnea, PND, fever, chills, blood in urine, or myalgia. Pt. states SOB with exert ion. She is working with Dr. Nelson on this. She wears a CPAP at night. She was prescribed medication for this, but is unable to afford this medication. She is waiting to hear back from Dr. Nelson for possible alternatives. She states having lymphedema and uses compression machine 2 hours a day to help with this. Pt. states some blood in stool and gets Iron transfusions. Heart catheterization fro m March 2017 shows severely elevated right heart pressures, minimal coronary artery disease, severe systemic hypertension, severe pulmonary hypertension, and an ejection fraction of 65%. Echocardiogra m from November 2016 showed an estimated ejection fraction 55%, RVSP of 54 mmHg, moderate tricuspid valve insufficiency, and an aortic valve area of 1.3 cm . Intake Vital Signs09/18/17 Height 5 ft 7.5 in 09/18/17 Weight: 364 lb 09/18/17 Body Mass Index (BMI) 56.1 09/18/17 Blood Pressure 148/88 09/18/17 Blood Pressure Location Lt radial Intake Visit Reasons: 4 M FU Yard Hand Required: No Accompanied by: None Is patient in pain?: No Allergies No Known Allergies Allergy (Verified 09/18/17 10:31) Medications Budesonide/Formoterol 160/4.5 [Symbicort 160/4.5 Mcg Inhaler (SP)] 2 puff INHALATION WALKER Y 12/09/16 [History Confirmed 09/06/17] Cholecalciferol (Vitamin D3) [Vitamin D3] 2,000 unit PO BID 12/09/16 [History Confirmed 09/06/17] Febuxostat [Uloric] 80 mg PO QODAY 12/09/16 [History Confirmed 0 09/06/17] Lisinopril [Zestril] 10 mg PO DAILY 12/09/16 [History Confirmed 09/06/17] Magnesium 200 mg PO BID 12/09/16 [History Confirmed 09/06/17] Metoprolol Tartrate [Lopressor (beta long)] 100 mg PO BID 12/09/16 [History Confirmed 09/06/17] Multivitamins,Ther W-Minerals [Multivitamin With Minerals] 1 tab PO DAILY 12/09/16 [History Confirmed 09/06/17] Pravastatin [Pravachol] 80 mg PO QHS 12/09/16 [H istory Confirmed 09/06/17] Ropinirole HCl [Requip] 0.25 mg PO DAILY 12/09/16 [History Confirmed 09/06/17] Ubidecarenone [Co Q-10] 200 mg PO DAILY 12/09/16 [History Confirmed 09/06/17] Nitroglycerin [Nit rostat] 0.4 mg SUBLINGUAL Q5M PRN #10 tab 12/12/16 [Rx Confirmed 09/06/17] Ferrous Sulfate [Iron] 325 mg PO BID 03/01/17 [History Confirmed 09/06/17] Furosemide [Lasix] 20 mg PO DAILY 03/01/17 [History Confirmed 09/06/17] Linagliptin [Tradjenta] 5 mg PO DAILY PRN 03/01/17 [History Confirmed 09/06/17] Amoxicillin 500 mg PO UD PRN 05/10/17 [History Confirmed 09/06/17] Ascorbic Acid [Vitamin C with Romy Hips] 1,000 mg PO DAILY 05/10/17 [History Confirmed 09/06/17] Warfarin [Coumadin (PBKC)] 5 mg PO DAILY 05/10/17 [History Confirmed 09/18/17] calcium citrate 250 mg tablet 250 mg PO QDAY tab 09/18/17 [Hi story Confirmed 09/18/17] hydralazine 10 mg tablet 10 mg PO TID tab 09/18/17 [History Confirmed 09/18/17] Ejection fraction %: 55 to 59 PFSH Medical History Atherosclerotic heart disease of [place] c oro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 pectoris (Chronic) Chronic atrial fibrillation (Chronic) GI bleed (Chronic) Hyperkalemia (Chronic) HLD (hyperlipidemia) (Chronic) HTN (hypertension) (Chronic) Non-ST elevat ion (NSTEMI) myocardial infarction (Chronic) Nonrheumatic aortic (valve) stenosis (Chronic) Nonrheumatic mitral (valve) insufficiency (Chronic) Nonrheumatic tricuspid (valve) insufficiency (Chronic) Oth er secondary pulmonary hypertension (Chronic) SOB (shortness of breath) (Chronic) Diabetes (Acute) Diverticulitis (Acute) Fatigue (Acute) Heart disease (Acute) History of GI bleed (Acute) History of blo od transfusion (Acute) History of pneumonia (Acute) Liver disease (Acute) Obesity (Acute) Osteopenia (Acute) Pulmonary hypertension (Acute) Sepsis secondary to UTI (Acute) Surgical History History of appendectomy (Acute) History of hysterectomy (Acute) Status post right foot surgery (Acute) History of left heart catheterization (LHC) (Resolved) Family History Mother , age 83 Uterine cance r Hypertension Father , age 81 Heart disease Diabetes CAD (coronary artery disease) Hypertension Social History Smoking Status: Never smoker alcohol intake: never substance use type: does no t use caffeine: No what type of physical activity do you participate in: none seatbelt use: always do you feel safe at home: Yes ROS Const Const: Positive for fatigue; negative for weakness, richie dy ache, fever(s) or chills ENT ENT: Negative for dizziness Cardio Chest Pain: No Palpitations: Positive for No Edema: Bilateral (unchanged) Muscle aches with walking: None Resp Respiratory: Negative fo r SOB with activity, SOB at rest, SOB orthopnea\SOB lying down or paroxysmal nocturnal dyspnea GI GI: Positive for bright, red blood in stools; negative nausea, black,tarry stools or vomiting blood/omer temesis : Negative for hematuria or frequent nighttime urination/ nocturia Musc Musc: Negative for muscle aches/ myalgia Neuro Neuro: Negative for weakness, Negative for dizziness, Negative for lig htheadedness, Negative for near syncope, Negative for syncope, Negative for orthostatic symptoms Endo Endo: Positive for fatigue Cardiology Exam Const Appearance: cooperative, healthy appearing, comfo rtable and no acute distress Orientation: alert, awake and oriented x3 Head Head: normal to inspection Mouth: oral mucosae normal Neck Neck: no JVD and normal visual inspection Carotids: normal carotid upstroke Chest Chest inspection: normal inspection of the chest and normal respiratory effort Auscultation: Bilateral: Clear to Auscultation Cardio Rate: regular rate Rhythm: regular rhythm Heart sounds : murmur (Right Sternal border systolic); negative rub or gallop Murmur: Grade 3/6 GI GI: normal to inspection Neuro General: alert, awake, oriented x3 and CN's II-XI intact bilaterally Skin Skin: no ra shes or lesions noted Extremities Pulses: Normal: Right Posterior Tibial Pulse, Left Posterior Tibial Pulse, Right Radial Pulse, Left Radial Pulse Lower Extremity Edema: None: Bilateral Psych Psychologi maricruz: normal affect Assessment AND Plan 1. Atherosclerosis of [place] coronary artery of [place] heart without angina pectoris I25.10 [facility]: 07/30/2006; 04/10/17 ROSALIND King Patient's most re cent heart catheterization is noted above. Patient denies any chest pain, arm pain, jaw pain, neck pain, worsening shortness of breath, or fatigue suggestive of angina at this time. We will continue to monitor this. We will not make any medication regimen changes and will continue risk factor modification. 2. Chronic atrial fibrillation I48.2 ROSALIND King Patient's heart rate is well-cont rolled today in office. We will continue to monitor this. Patient will continue current medications which include beta-long and Coumadin therapy. 3. Iron deficiency anemia, unspecified iron deficien cy anemia type D50.9 ROSALIND King Patient will continue to follow up with primary care physician for this. 4. 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 Nelson for this. 5. Nonrheumatic aortic (valve) stenosis I35.0 ROSALIND King Patient's most recent echocardiogram as noted above. We will continue to monitor this through history, exam, and repeat echocardiogram as needed. 6. Essential hypertension I10 ROSALIND King Patient blood pressure is elevated today in office. In an attempt to better contr ol her blood pressure and possibly improve her pulmonary hypertension we will increase her hydralazine to 20 mg 3 times a day. She has several upcoming doctor's office visits appointment in which her bl ood pressure will be monitored. If 20 mg shows improvement in her blood pressure and no secondary side effects, we can send a new prescription for 25 mg 3 times daily. 7. Mixed hyperlipidemia E78.2 Coreen ROSALIND Burton Patient states having upcoming appointment with primary care physician and will inquire if cholesterol will be drawn at that time. She was reminded that if cholesterol is not drawn by primary care physician to contact our office so that it can be further evaluated. Patient will continue with current cholesterol medication. Plan Detail Other Medications Discontinued: acetaminophe n Discontinued Reason: Pt no 650 mg (2 x 325 mg) PO Q4H PRN PRN fever, mesha longer taking n Additional Comments - Lazaro Figueredo NP-C Discussed the above patient with Dr. Raymundo, he agrees with the plan of care. Thank you for allowing us to participate in the patients plan of care, if you have any questions please do not hesitate to call. This note was generated using a voice recognition system and the re may be incorrect words, spelling or punctuation that were not noted when reviewing the office note prior to saving. Follow Up 6 Months (WATCH REPAIR TECHNICIAN) Coding Level of Care Code Off vis,est,level 3 Diagnoses Atherosclerosis of [place] coronary artery of [place] heart without angina pectoris I25.10 [place] vs. transplanted heart: [place] heart Chronic atrial fibrillation I48.2 Iron deficiency anemia, unspecifie d iron deficiency anemia type D50.9 Anemia type: iron deficiency Iron deficiency anemia type: unspecified iron deficiency Other secondary pulmonary hypertension I27.29 Nonrheumatic aortic (valve) stenos is I35.0 Essential hypertension I10 Hypertension type: essential hypertension Mixed hyperlipidemia E78.2 Hyperlipidemia type: mixed hyperlipidemia Coding Level of Care Code Off vis,est,level 3 Diagno ses Atherosclerosis of [place] coronary artery of [place] heart without angina pectoris I25.10 [place] vs. transplanted heart: [place] heart Chronic atrial fibrillation I48.2 Iron deficiency anemia, unspeci fied iron deficiency anemia type D50.9 Anemia type: iron deficiency Iron deficiency anemia type: unspecified iron deficiency Other secondary pulmonary hypertension I27.29 Nonrheumatic aortic (valve) jamie nosis I35.0 Essential hypertension I10 Hypertension type: essential hypertension Mixed hyperlipidemia E78.2 Hyperlipidemia type: mixed hyperlipidemia 09/18/17 1515 <Electronically signed by Mendez Figueredo NAPHTHALENE OPERATOR-C> Date Lazaro GARCIAC 09/20/17 1531<Electronically signed by Niraj Raymundo MD> Cosigner Signature: Date ____ (if applicable) Niraj Raymundo MD CC: Sara Swartz NP 06-Aug-2017 Chest PA and Lateral Result: Comments: See Note; NOTES: [facility] [address] [place] [address] Chest PA and Lateral MR#: [id number] Acct: [id number] Name: GABBI ROLLE Rep #: [id number] : 1945 F 72 From: Ariane Crook MD PCP: Sara Swartz NP Status: REG CLI Study: Chest PA and Lateral Date of Exam: 08/06/17 Exam# [id number] Ordering Dr: Kaykay Layne NAPHTHALENE OPERATOR-Cassie STUDY: X-RAY C HEST REASON FOR EXAM: Female, 72 years old. Cough TECHNIQUE: Frontal and lateral views of the chest were obtained. COMPARISON: March 26, 2017 FINDINGS: The lungs are hyperinflated. Interstitial markings are prominent. There are coarse markings in both lung bases. There are no focal airspace opacities. There is no demonstrated pleural abnormality. There is mild enlargement of the cardiac silhouette. The mediastinum and hilar regions are unremarkable. Normal visualized pulmonary arteries. There is atherosclerotic calcification of the aortic arch. There are di ffuse degenerative changes of the visualized thoracic spine. The visualized ribs, clavicles, and shoulders are unremarkable. There is no demonstrated abnormality of the visualized upper abdomen. RAD/Chest PA and Lateral IMPRESSION: No evidence of focal consolidation or effusion. There is stable mild enlargement of the cardiac silhouette. There are stable findings of COPD with mild diffuse fibrosis and bibasilar scarring/fibrosis. Electronically Signed: Ariane Crook MD at 17:23 EST Tel Direct: [phone], Service support 08-26 [phone], CC: Sara Swartz NP; NAPHTHALENE OPERATOR-C Kaykay Layne Manager Strategic Marketing: Signed 30-Jul-2017 Breast Limited Unilateral Result: Comments: See Note; NOTES: [facility] [address] [facility] [place] [address] Breast Limited Unilateral MR#: [id number] Acct: [id number] Name: GABBI ROLLE Rep #: [id number] : 1945 F 72 From: Irvin Cho MD PCP: Sara Swartz NP Status: REG CLI Study: Breast Limited Unilateral Date of Exam: 07/30/17 Exam# [id number] Ordering Dr: Sara Swartz STUDY: UL TRASOUND BREAST - RIGHT REASON FOR EXAM: Female, 72 years old. Abnormal screening mammogram. TECHNIQUE: Axial and longitudinal images of the RIGHT breast were performed with a high resolution ultrasou nd transducer. COMPARISON: Comparison is made with prior study dated July 23, 2017. FINDINGS: RIGHT Breast: There is a 0.8 cm x 1.0 cm x 0.4 cm lymph node at th e 8:00 in the breast at 6 cm from the nipple. A similar appearing nodule measuring 1.3 cm x 1.1 cm x 0.4 cm is seen at the 9:00 position in the breast at 7 cm from the nipple. US/Breast Limited Unilateral IMPRESSION: The mammographic findings correspond to 2 small lymph nodes. ASSESSMENT CATEGORY: BIRADS Julissa gory 2: Benign. A letter regarding these results will be sent to the patient by the facility within 30 days. Electronically Signed: Irvin Cho MD at 12:42 EST Tel [phone], Servic e support , CC: Sara Swartz NP Manager Strategic Marketing: Signed 23-Jul-2017 SCREENING MAMM (CAD), BILAT Result: Comments: See Note; NOTES: [facility] Imaging Services [address] [place] [address] SCREENING MAMM (CAD), BILAT MR#: [id number] Acct: [id number] Name: GABBI ROLLE Rep #: [id number] : 1945 F 72 From: Irvin Cho MD PCP: Sara Swartz NP Status: REG CLI Study: SCREENING MAMM (CAD), BILAT Date of Exam: 07/23/17 Exam# [id number] Ordering Dr: Sara Swartz MAMMO GRAPHY - BILATERAL SCREENING REASON FOR EXAM: Female, 72 years old. Routine annual screening examination. PERTINENT HISTORY: Non-contributory. TECHNIQUE: Digital bilateral breast kole (3D mammographi c acquisition) in the CC and MLO projections. 2-D mediolateral oblique (MLO) and craniocaudad (CC) views of both breasts were obtained. CAD: Full Field Digital Mammography with Computer Added Detection was performed. COMPARISON: Comparison is made with prior study dated July 27, 2016 and July 25, 2015. FINDINGS: Breast Composition: There are scattered areas of fibroglandular density. There now is a 7.3 mm x 7.2 mm nodular density in the deep mid lateral portion of the right breast. Correlation with ultrasound is recommended. No other significant abnormal ities are identified. HPBI/SCREENING MAMM (CAD), BILAT IMPRESSION: Subcentimeter nodule in the right breast as described. Correlation with ultras ound is recommended. ASSESSMENT CATEGORY: BIRADS Category 0: Incomplete. Need additional imaging evaluation. A letter regarding these results will be sent to the pa tient by the facility within 30 days. Approximately 10% of breast cancers are not detected by mammography. A normal mammogram should not delay biopsy of a clinically suspicious abnormality. [id number] El ectronically Signed: Irvin Cho MD at 9:57 EST Tel [phone], Service support , CC: Sara Swartz NP Manager Strategic Marketing: Signed 10-May-2017 History and Physical Exam Result: Comments: See Note; NOTES: [facility] Medical Records Department [address] [facility] [place] [address] History and Physical 05/10/17 1126 MR#: [id number] Acct: [id number] Name: Alvina ROLLE Rep #: [id number] : 1945 71 From: Halley Khan MD PCP: Sara Swartz Status: REG RCR Y Location: D (1) Anemia Status: Chronic (2) Iron deficiency anemia Status: Chronic (3) CRF ( chronic renal failure) Status: Chronic Subjective Date of Service:: 05/10/17 Chief Complaint: Anemia History of Present Illness: Patient is a 71-year-old female with a past medical history notable for morbid obesity diabetes chronic renal failure hypertension chronic atrial fibrillation on long-term anticoagulation and chronic GI blood loss attributed to diverticular disease (most recent colonoscopy was in 2016). Patient is being seen in consultation for chronic, recurrent anemia that has been attributed to chronic and recurring iron deficiency from chronic GI blood loss. She has been on oral iron supplement averaging 1-3 tablets daily for the past 1-2 years now. She has received IV iron in February 2017 and needed blood transfusion in 2017 for severe symptomatic anemia. There had been occasions whe n her Coumadin anticoagulation had to be held due to increasing GI blood loss despite the fact that she is at an increased risk for cerebrovascular events from chronic atrial fibrillation. Her anemia martinez s responded in the past 2 oral and intravenous iron but tends to recur. Power of Subscription Agent: Yes Living Will: Yes Health History: Past Medical History Past Medical History: Anemia,Bleeding disorder,Blo od transfusion, Diabetes mellitus,Diverticulitis,Edema,GI bleed, Heart disease,Hyperlipidemia,Hypertension,Liver disease,Obesity,Osteopenia,Pneumonia, Postmenopausal,Vitamin D deficiency,Fatigue Other P ast Medical History: PULMONARY HYPERTENTION UTI (SEPTIC) Past Surgical History Surgical: Appendectomy,Hysterectomy Other Surgical History: RIGHT FOOT SURGERY 1985 Family History Paternal Past Medica l History: Heart disease Maternal Past Medical History: Unknown Maternal History of Cancer: Uterine cancer Social History Smoking Status Never smoker Allergies/Adverse Reactions: Allergy/AdvReac T ype Severity Reaction Status Date / Time No Known Allergies Allergy Verified 05/10/17 09:48 Home Medications Medication Instructions Recorded Budesonide/Formoterol 160/4.5 2 puff INHALATION DAILY [Symbicort 160/4.5 Mcg Inhaler Risk Factors Tobacco Risk Data: Tobacco Risk Smoking Status Never smoker Type of tobacco: Smokeless tobacco usage: Items/Day: Year started: Years used: Counsele d to quit/cut down: Reason for no counseling performed: Reason for no pharmacotherapy: Tobacco use comments: Passive smoke exposure: No Substance Risk Drug use: No Caffeine use [drinks/day]: 0 Alcoh ol use: No Type of alcohol: Drinks per day: Has patient felt the need to cut down: Has the patient been annoyed by complaints: Has the patient felt guilty about drinking: Has the patient needed an eye o pener in the mornings: Comments: Date of last colonoscopy:: 12/25/16 Date of last mammogram:: 07/27/16 Review of Systems Constitutional:: Reports: Weakness, Fatigue. Denies: Fever, Sweats, Weight los s, Appetite change, Chills Cardiovascular:: Reports: Ankle swelling, Dyspnea on exertion. Denies: Chest pain, Palpitations, Orthopnea, PND, Shortness of breath Respiratory: Reports: Shortness of breath upon exertion, Wheezing. Denies: Cough, Hemoptysis Gastrointestinal:: Reports: Hematochezia, - - Periodic HI bleed, red no melena No reflux symptoms. Denies: Abdominal pain, Nausea, Vomiting, Diarrhea, Constipation Genitourinary: Denies: Dysuria, Hematuria, 15, Flank pain Musculoskeletal:: Reports: Arthritis, Arthralgia. Denies: Back pain, Myalgia Skin: Denies: Rash, Skin Changes, Wounds Neurological: : Denies: Headache, Dizziness, Visual changes, Tinnitus, Hearing loss Psychiatric: Denies: Anxiety, Depression, Homicidal Ideations, Suicidal Ideations Review of Systems Comments: No breasts lumps Obje ctive Vital Signs Height 1.71 m Weight: 166.196 kg Weight in Pounds 366.4 lbs Pulse Ox 97 - Physical Exam General: Alert, Oriented x3, No apparent distress, - - Morbidly obese HEENT: Atraumatic, P ERRLA, EOMI, Normocephalic Oropharynx:: Dry mucosa Neck:: Supple, Trachea midline. Negative for: JVD, bilateral Cardiac:: Normal S1, Normal S2, Irregular rate, Murmur Lungs: Clear to auscultation, Excus ion symmetrical. Negative for: Rhonchi, Wheezes Abdomen:: Soft, Non-tender, Non- distended, Obese. Negative for: Hepatosplenomegaly Extremities:: - - Gross nonpitting edema. Negative for: Cyanosis, Edema Neurological: Neuro grossly intact Skin:: Negative for: Lesions, Rash, Petechiae, Ecchymosis Psychiatric:: Appropriate affect, Euthymic Lymphatics:: Negative for: Cervical lymphadenopathy, Supraclavicu lar lymphadenopathy, Axillary lymphadenopathy Laboratory Data: Viewed labs from November 2016 in EMR. CBC and iron profile were drawn at PCP office this a.m. results not available yet. No evidence for B12 deficiency by screening in 2017 Assessment and Plan 71-year-old female with chronic recurring anemia most consistent with multiple factors includin. Chronic recurrent iron deficiency anemia due t o chronic GI blood loss presumed diverticular disease (colonoscopy 2017) despite oral iron supplementation. Patient was transfused with packed red cells in 2017 for severe symptomatic anemia patient req uired IV iron in February 2017 and did respond. Recommend long-term oral iron supplementation 1-3 tablets daily depending on her tolerance to be supplemented with intravenous iron maintenance as guided by bryan robison. 2. Anemia of chronic renal failure. To be assessed for erythrocyte stimulating agent therapy after correction of her iron deficiency. 3. Anemia due to polypharmacy and minor contributor but e xpected side effect. Worsening of her chronic GI blood loss can be attributed to Coumadin anticoagulation on top of colonic pathology nonetheless the benefit in prevention of cerebrovascular events and absence of serious life-threatening bleeding outweighs the risk. Patient was seen was her impression and plan discussed. Pending review of her CBC and iron profile from this a.m. will guide IV iron supplementation and she will be monitored every 3 months to begin with . Risks of IV iron especially anaphylaxis discussed. Main side effect of oral iron is constipation and potential masking of GI bleed discussed Primary Care Provider: Sara Swartz Referring Provider: 05/10/17 1143 <Electronically signed by Halley Khan MD> Date Halley Khan MD Cosigner Signature (if applicable): Date CC: Sara Swartz; Sara Swartz; Zeus Vera DO; Halley Khan MD; Heron Hobbs Signed 26-Mar-2017 Chest PA and Lateral Result: Comments: See Note; NOTES: [facility] Imaging Services [address] [place] [address] Chest PA and Lateral MR#: [id number] Acct: [id number] Name: GABBI ROLLE Rep #: [id number] : 1945 F 71 From: Ariane Crook MD PCP: Sara Swartz Status: REG CLI Study: Chest PA and Lateral Date of Exam: 03/26/17 Exam# [id number] Ordering Dr: Niraj Raymundo MD STUDY: X-RAY CHEST R LUC FOR EXAM: Female, 71 years old. Preprocedure assessment TECHNIQUE: Frontal and lateral views of the chest. COMPARISON: December 09, 2016 FINDINGS: There are co arse markings again seen in both lung bases. There is no focal airspace disease. There is no demonstrated pleural abnormality. There is mild enlargement of the cardiac silhouette. Normal mediastinum an d veronika. Normal visualized pulmonary arteries. Normal visualized aortic arch and descending thoracic aorta. There are diffuse degenerative changes of the visualized thoracic spine. Normal visualized rib s, clavicles, and shoulders. There is no demonstrated abnormality of the visualized soft tissue structures of the upper abdomen. RAD/Chest PA an d Lateral IMPRESSION: No acute cardiopulmonary abnormalities or changes. There is stable mild enlargement of the cardiac silhouette without evidence of edema or effusion. There is stable bibasilar fibr osis/scarring. Electronically Signed: Ariane Crook MD at 20:49 EDT Tel [phone], Service support , CC: Sara Swartz; Niraj Raymundo MD Manager Strategic Marketing: Signed 05-Mar-2017 Venous Duplex Lower Extremity Result: Comments: See Note; NOTES: [facility] Cardiovascular Services [address] [place] [address] Venous Duplex US, Unilateral 03/05/17 1427 MR#: [id number] Acct: [id number] Name: GABBI MCGOVERN Rep #: [id number] : 1945 71 From: Francisco Ji MD Attending Dr: Heron Hobbs Status: REG CLI Ordering Dr: Heron Hobbs MD Date: 03/05/17 Location: [facility] Sex: F C Admitted: Reason For Study: LEG PAIN Procedure LEFT Exam performed in department. GSV is normal. A preliminary report was called and/or faxed CFV is compressible, spontaneous, phasic , to Dr. Hobbs. compe tent, and demonstrates normal augmentation. FV is compressible, spontaneous, phasic, competent and demonstrates normal augmentation. POP V is compressible, spontaneous, phasic, competent and demonstrate s normal augmentation. T/P Trunk is compressible. PTV is compressible. LT PerV is compressible. Interpretation Summary Deep veins of the left lower extremity are patent and compressible segmentally. Th ere is no evidence of left lower extremity deep vein thrombosis. Valvular competence appears intact within the proximal deep venous system on the left . The left greater saphenous vein appears patent an d compressible segmentally. Ordering Physician: Heron Hobbs Referring Physician: Sara Swartz Performed By: Carley Suazo RVT 03/05/17 1602 Date Francisco Ji MD CC: Sara mcghee; Heron Hobbs Date Dictated: 03/05/17 1427 Date Transcribed: 03/05/171601 Manager Strategic Marketing: Signed 04-Feb-2017 Kidney and Bladder Result: Comments: See Note; NOTES: [facility] Imaging Services [address] [place] [address] Verdana 4d Kidney and Bladder MR#: [id number] Acct: [id number] Name: GABBI ROLLE Rep # : [id number] : 1945 F 71 From: Irvin Galarza DO PCP: Sara Swartz Status: REG CLI Study: Kidney and Bladder Date of Exam: 02/04/17 Exam# [id number] Ordering Dr: Natalia Mccurdy DO STUDY: RENAL ULTRAS OUND - COMPLETE REASON FOR EXAM: Female, 71 years old. Chronic kidney disease stage III TECHNIQUE: Ultrasound evaluation of the kidneys was performed with real-time and static ruggiero-scale imaging. Zondle PARISON: None. FINDINGS: RIGHT KIDNEY: Normal location of the right kidney, which is normal in size. The right kidney measures 12.1 x 5.9 x 5.7 cm. There is a lissett l cortex of the right kidney. The renal cortex measures 1.0 cm. There is no right renal mass or cyst. There are no right renal calculi. There is no right hydronephrosis. DISTAL RIGHT URETER: There is n on-visualization of the distal right ureter. LEFT KIDNEY: Normal location of the left kidney, which is normal in size. The left kidney measures 11.2 x 4.2 x 4.3 cm. There is a normal cortex of the left kidney. The renal cortex measures 1.0 cm. There is no left renal mass or cyst. There are no left renal calculi. There is no left hydronephrosis. DISTAL LEFT URETER: There is non-visualization of the d istal left ureter. BLADDER: The distended urinary bladder has a volume of 155 ml. There is a normal wall thickness of the distended urinary bladder. There is no demonstrated mass within the urinary sedrick dder. There are no demonstrated bladder calculi. US/Kidney and Bladder IMPRESSION: Normal ultrasound of the kidneys and urinary bladder. Electro nically Signed: Irvin Galarza DO at 22:55 EDT Tel [phone], Service support , CC: Sara Swartz; Natalia Mccurdy DO Manager Strategic Marketing: Signed 09-Dec-2016 Emergency Department Summary Result: Comments: See Note; NOTES: [facility] Medical Records Department [address] [place] [id number] Emergency Department Summary MR#: [id number] Acct: [id number] Name: FINA ROLLE Rep #: [id number] : 1945 71 From: Maral Palacios MD PCP: Sara Swartz Status: REG ER DATE OF SERVICE: 12/09/2016 CHIEF COMPLAINT: Fever and dyspnea. HISTORY OF PRESENT ILLNESS: This is a 71- year-old female who has been having symptoms for about 3 days of fever and feeling short of breath, dyspnea, waxes and wanes. She has no associated cough, no sore throat or rhinorrhea. No abdominal pain , nausea or vomiting. No diarrhea, no dysuria. She has no idea why she might have a fever. She has never had anything like this before. PAST MEDICAL HISTORY: AFib and hypertension. PHYSICAL EXAMINATIO N: VITAL SIGNS: Temperature was 102.7 orally on arrival, blood pressure is 133/84, heart rate is 136, respirations 23, pulse ox 97% on room air. GENERAL: She is obese. She is not in distress. She speaks in full sentences, alert, appropriate and cooperative. HEENT: She has dry mucous membranes. HEART: Rate is irregularly irregular and tachycardic. LUNGS: Clear bilaterally without wheezing or rhonchi. C HEST: Not tender. ABDOMEN: Soft and nontender. EXTREMITIES: She has chronic skin changes consistent with chronic edema and symmetric edema in the lower extremities. No distinct rash. CLINICAL COURSE AN D DECISION MAKING: Chest x-ray demonstrates some chronic changes. EKG is AFib with a rate of 122, no significant changes with comparison to most recent EKG. CBC was notable for white count of 15.9, hemo globin was 8.6 and this is chronic anemia. Chemistry notable for BUN of 52, creatinine of 2.05. I have no old creatinine to compare, so I do not know if this is a jump from baseline, but certainly she a ppears dehydrated. INR is 1.6. She is on Coumadin. Lactate was 2.2. The patient received Tylenol for her fever as well as some fluid. Troponin is 0.43 and BNP is 243. The case was discussed with the jennifer ivy. I do not have an obvious source of infection, but obviously with this patient's high fever and leukocytosis, she warrants antibiotics empirically. She was given Rocephin and azithromycin. I do not have urine result from her yet. We have obtained a sample. Blood and urine cultures are pending. DISPOSITION: Admit. DIAGNOSES: 1. SIRS. 2. Indeterminate troponin. 3. Dehydration. Maral Palacios MD T: NTS JOB: [id number] 12/09/16 0728 <Electronically signed by Maral Palacios MD> Date Maral Palacios MD Cosigner Signature (If Indicated ): Date CC: Sara Nixonyany Date Dictated: 12/09/1604 Date Transcribed: 12/09/16703 Manager Strategic Marketing: Signed 09-Dec-2016 Chest PA and Lateral Result: Comments: See Note; NOTES: [facility] Imaging Services [address] [place] [address] Verdana 4d Chest PA and Lateral MR#: [id number] Acct: [id number] Name: GABBI ROLLE Rep #: [id number] : 1945 F 71 From: Aaron Kenyon MD PCP: Sara Swartz Status: REG ER Study: Chest PA and Lateral Date of Exam: 12/09/16 Exam# [id number] Ordering Dr: Maral Palacios MD STUDY: X-RAY CHEST REASON FOR EXAM: Female, 71 years old. SOB with fever TECHNIQUE: Frontal and lateral views of the chest. COMPARISON: None. FINDINGS: There is hyperinflatio n of the lungs consistent with chronic obstructive lung disease (COPD). There is no demonstrated pleural abnormality. Normal size heart. Normal mediastinum and veronika. Normal visualized pulmonary arterie s. Normal visualized aortic arch and descending thoracic aorta. There are diffuse degenerative changes of the visualized thoracic spine. There is degenerative osteoarthritis of the bilateral shoulders. There is no demonstrated abnormality of the visualized soft tissue structures of the upper abdomen. RAD/Chest PA and Lateral IMPRESSION: Degene rative changes, as described above. No demonstrated acute cardiopulmonary process. Electronically Signed: Aaron Kenyon MD at 6:26 EDT Tel , Service support , Fa x [phone] CC: Sara Swartz; Maral Palacios MD Manager Strategic Marketing: Signed 10-Sep-2016 Stress Test Echo w/o Contrast Result: Comments: See Note; NOTES: [facility] Cardiovascular Services [address] [place] [address] Verdana 4d Stress Test Echo w/o Contrast MR#: [id number] Acct: [id number] Name: GABBI WAY Rep #: [id number] : 1945 71 From: Niraj Raymundo MD Primary Care: Tia Sara Status: REG CLI Ordering Dr: Niraj Raymundo MD Sex: F C Reason For Study: SOB, AORTIC VAVLE STENOSIS Stress Results Protocol: Dobutamine Stress Maximum Predicted HR: 147 bpm Target HR: 125 bpm% Maximu m Predicted HR: 88 % DurationHeart Rate Stage (mm:ss) (bpm) BPCom ment BASELINE 90 177/87 STAGE I 3: 00 94 179/90DOBUTAMINE 10 MCG STAGE II 2:08 13 0 180/84DOBUTAMINE 20 MCG RECOVERY 5:07 95 176/72NO C/O Stress Duration: 10:15 mm:ss Maximum Stress HR: 130 bpm * Baseline Echocardiogram Findings Mild diffuse mitral valve thickening. Mild (1+) eccentric mitral valve insufficiency. Mild (1+) aortic valve insufficiency. Trisinus/trileaflet aortic valve. Mild focal aortic valve Stress Echo Wall motion Data Resting WMIntermediate WMStress WM Resting Wall Motion Wall Motion Stress No regional wall motion No regional wall motion abnormalities noted. abnormalities noted. Ejection Fraction 60 %. Ejection Fraction 70 %. EKG Data The baseline ECG displays abnormal ST segments in the inferior leads. Atiral fibrillation with controlled ventricular response rate. The patient was titrated from 10 mcg to a m aximum of 20 mcg of dobutamine during the stress. No arrhythmias noted. The stress ECG displays diffuse abnormal ST segments. The peak blood pressure was 180/84. Interpretation Summary The patient was t itrated from 10 mcg to a maximum of 20 mcg of dobutamine during the stress. Normal resting LV systolic function. Nonstenotic valves. With stress, the LV size decreased and all segments augmented normall y. The LVEF increased from 60% to 70%. Negative for ischemia at 88% of MPHR and at 1 METS. Elevated resting BP with peak BP of 180/84mmhg Normal BP response to dobutamine Mild and MR noted. MMode/2D Measurements & Calculations LVOT diam: 2.1 cm LVOT area: 3.5 cm2 Doppler Measurements & Calculations Ao V2 max: 292.5 cm/sec AI max pavel: 478.8 cm/sec LV V1 max P.0 mmHg SV(LVOT): 9 1.2 ml Ao max P.2 mmHg AI max P.8 mmHg LV V1 mean P.6 mmHg Ao V2 mean: 204.3 cm/sec AI dec slope: 362.6 cm/sec2 LV V1 max: 111.7 cm/sec Ao mean P.4 mmHg AI P1/2t: 386.8 msec LV V1 ed n: 76.7 cm/sec Ao V2 VTI: 65.4 cm LV V1 VTI: 26.3 cm ALONSO(I,D): 1.4 cm2 ALONSO(V,D): 1.3 cm2 Ordering Physician: Niraj Raymundo Referring Physician: Niraj Raymundo MD Performed By: Candida Mcguire, HAL, RVT 09/10/16 1523 Date Niraj Raymundo MD CC: Sara Swartz; Niraj Raymundo MD Date Dictated: 09/10/16 1258 Date Transcribed: 09/10/16 1523 Manager Strategic Marketing: Signed 27-Jul-2016 Bilat Scrn Digital AND CAD Result: Comments: See Note; NOTES: [facility] Imaging Services [address] [place] [address] Verdana 4d Bilat Scrn Digital AND CAD MR#: [id number] Acct: [id number] Name: GABBI ROLLE Rep #: [id number] : 1945 F 71 From: Irvin Cho MD PCP: Jacinto Sheehan Status: REG CLI Study: Bilat Scrn Digital AND CAD Date of Exam: 07/27/16 Exam# [id number] Ordering Dr: Jacinto Sheehan MAMMOGRAPHY - BILATERAL SCREENING REASON FOR EXAM: Female, 71 years old. Routine annual screening examination. PERTINENT HISTORY: Non-contributory. TECHNIQUE: Digital bilateral breast kole (3D mamm ographic acquisition) in the CC and MLO projections. 2-D mediolateral oblique (MLO) and craniocaudad (CC) views of both breasts were obtained. CAD: Full Field Digital Mammography with Computer Added Det ection was performed. COMPARISON: Comparison is made with prior study dated July 25, 2015 and July 23, 2014. FINDINGS: Breast Composition: There are scattered areas of fibroglandular density. There are no dominant masses or suspicious calcifications. There are 2 stable small well-defined nodular densities in the axillary portion of the right breast. These m ost likely represent small lymph nodes. No other significant abnormalities are identified. There has been no significant change since the prior study. ORDER #: [id number] BI/Bilnicole Scrdeana Digital AND CAD IMPRESSION: Stable bilateral screening mammogram. Yearly follow-up mammogram recommended. (A) ASSESSMENT CATEGORY: BIRADS Cat egory 2: Benign. A letter regarding these results will be sent to the patient by the facility within 30 days. Approximately 10% of breast cancers are not detected by mammography. A normal mammogram jono uld not delay biopsy of a clinically suspicious abnormality. [id number] Electronically Signed: Irvin Cho MD at 10:02 EST Tel [phone], Service support [phone], CC: Jacinto Sheehan Manager Strategic Marketing: Signed 11-Apr-2016 Dexa Bone Density/Append Skel Result: Comments: See Note; NOTES: [facility] Imaging Services [address] [place] [address] Ajaydamichael 4d Dexa Bone Density/Append Skel MR#: [id number] Acct: [id number] Name: SHYAM ROLLE Rep #: [id number] : 1945 F 70 From: Irvin Cho MD PCP: Jacinto Sheehan Status: REG CLI Study: Dexa Bone Density/Append Skel Date of Exam: 04/11/16 Exam# [id number] Ordering Dr: Jacinto Sheehan STUDY: DUAL ENERGY X-RAY ABSORPTIOMETRY / DXA REASON FOR EXAM: Female, 70 years old. The patient is postmenopausal. Loss of height. TECHNIQUE: Bone Mineral Density (BMD) measurements of both forearms were obtained. COMPARISON: None. FINDINGS: Right Forearm: g/cm2 (0.911) / T-score (0.3) / Z-score (2.3) Left Forearm: g/cm2 (0.903) / T-score (0.2) / Z-s core (2.2) HPBD/Dexa Bone Density/Append Skel IMPRESSION: The patient is considered normal as outlined below according to World [employer] ion (WHO) criteria with a low fracture risk. Reference Information: The T-score is the number of standard deviations above or below the standard which is normal for young adults at their peak bone mineral density. The World Health Organization (WHO) interprets the T-scores as follows: Above -1 Normal bone density Between -1 and -2.5 Osteopenia Equal to / or below -2.5 Osteoporosis As a practical clinical guideline, osteopenia may be graded as follows: Mild -1 through -1.5 Moderate -1.6 through -2.0 Severe -2.1 through -2.4 The Z-score is the number of standar d deviations above or below age-matched controls. A Z-score of less than -1.5 would be considered abnormal. References: 1. NIH Osteoporosis and Related Bone Diseases http://www.osteo.org 2. Internation al Society for Clinical Densitometry http://www.iscd.org 3. National Osteoporosis Foundation http://www.nof.org Electronically Signed: Irvin Cho MD at 11:29 EDT Tel [phone], Ser vice support [phone], CC: Jacinto Sheehan Manager Strategic Marketing: Signed 26-Dec-2015 Liver Result: Comments: See Note; NOTES: [facility] Imaging Services [address] [place] [address] Verdana 4d Liver MR#: [id number] Acct: [id number] Name: GABBI ROLLE Rep # : [id number] : 1945 F 70 From: Irvin Cho MD PCP: Brittany Abraham DO Status: REG CLI Study: Liver Date of Exam: 12/26/15 Exam# [id number] Ordering Dr: Brittany Abraham DO STUDY: ABDOMINAL ULTRASOUND - RIGHT UPPER QUADRANT REASON FOR VISIT: Female, 70 years old. Nonalcoholic liver disease. TECHNIQUE: Ultrasound evaluation of the right upper quadrant was performed with real-time and s tatic dorsey-scale imaging. TECHNICAL QUALITY: Adequate. COMPARISON: Comparison is made with prior study dated December 14, 2013. FINDINGS: Liver: The liver is en larged and measures 20.5 cm. There is increased echogenicity consistent with fatty infiltration. The bile ducts are within normal limits. There is hepatic color flow. The direction of portal flow is hepatopetal. There is no demonstrated mass lesion. Gallbladder: Normal distended gallbladder. The gallbladder wall measures 2.5 mm. There is a negative sonographic Redd's sign. There is no pericho lecystic fluid. There are no gallstones. Common Bile Duct (C.B.D.): The common bile duct measures 4.0 mm. Pancreas: Normal size of the head, body and tail of the pancreas. There is increased echoge nicity of the pancreas. There is no demonstrated pancreatic mass or cyst. Right Kidney: Normal size of the right kidney. The right kidney measures 11.3 cm x 5.2 cm x 5.2 cm. Normal renal cortex. The right cortex measures 1.0 cm. There is no demonstrated renal mass or cyst. There is no right hydronephrosis. IMPRESSION: Hepatomegaly and fatty infiltration of the liver. Electronically Signed: Irvin Cho MD at 12:58 EDT Tel [phone], Service support [phone], CC: Brittany Abraham DO Manager Strategic Marketing: Signed 25-Jul-2015 Bilat Scrn Digital AND CAD Result: Comments: See Note; NOTES: [facility] Imaging Services [address] [place] [address] Verdana 4d Bilat Scrn Digital AND CAD MR#: [id number] Acct: [id number] Name: GABBI ROLLE Rep #: [id number] : 1945 F 70 From: Irvin Cho MD PCP: Brittany Abarham DO Status: REG CLI Study: Bilat Scrn Digital AND CAD Date of Exam: 07/25/15 Exam# [id number] Therese trujillo Dr: Brittany Abraham DO MAMMOGRAPHY - BILATERAL SCREENING REASON FOR EXAM: Female, 70 years old. Routine annual screening examination. PERTINENT HISTORY: Non-contributory. TECHNIQUE: Digital exa mination. Mediolateral oblique (MLO) and craniocaudad (CC) views of both breasts were obtained. CAD: CAD was performed on this study. COMPARISON: Comparison is made with prior study dated July and July 30, 2013. FINDINGS: Breast Composition: There are scattered areas of fibroglandular density. There are no dominant masses or suspicious maricruz cifications. Once again, 2 small well-defined densities in the deep upper lateral aspect of the right breast. These most likely represent small lymph nodes. No other significant abnormalities are id entified. There has been no significant change since the prior study. IMPRESSION: Stable bilateral screening mammogram. Yearly follow-up recommended. (A) ASSESSMENT CATEGORY: BIRADS Category 2: Benign. A letter regarding these results will be sent to the patient by the facility within 30 days. Approximately 10% of olga ast cancers are not detected by mammography. A normal mammogram should not delay biopsy of a clinically suspicious abnormality. [id number] Electronically Signed: Irvin Cho MD at 8:59 EST Tel [phone], Service support [phone], CC: Brittany Abraham DO Manager Strategic Marketing: Signed 22-Jun-2015 Carotid Duplex Ultrasound Result: Comments: See Note; NOTES: [facility] Cardiovascular Services [address] [place] [address] Carotid Duplex Ultrasound 06/17/15 0851 MR#: [id number] Acct: [id number] Name: GABBI ROLLE Rep #: [id number] : 1945 70 From: Sharath Mortensen MD Attending Dr: Brittany Abraham DO Status: REG CLI Ordering Dr: Brittany Abraham DO Date: 06/17/15 Location: [facility] Sex: F C A dmitted: Rt. Velocities/BP Lt. Velocities/BP Prox CCA 92.0/12.9 cm/sec. Prox CCA 96.2/15.2 cm/sec. Mid CCA 73.3/11.7 cm/sec. Mid CCA 81.5/15.2 cm/sec. Dist CCA 48.3/7.46 cm/sec. Dist CCA 74.5/14 .7 cm/sec. Prox ICA 93.2/19.9 cm/sec. Prox ICA 92.0/17.6 cm/sec. Mid ICA 91.2/24.2 cm/sec. Mid ICA 111.0/29.9 cm/sec. Dist ICA 117/30.6 cm/sec. Dist ICA 100.0/24.6 cm/sec. Rt. ICA/CCA = 1.6. Lt. ICA /CCA = 1.4. Prox ECA 49.9/7.07 cm/sec. Prox ECA 83.3/15.8 cm/sec. Rt. Vert. 65.7/14.1 cm/sec. Lt. Vert. 53.0/9.82 cm/sec. Right Extracranial There is intimal thickening but no significant atheroscl erotic plaque noted in the right common carotid artery. There is intimal thickening but no significant atherosclerotic plaque noted in the right internal carotid artery. There is intimal thickening b ut no significant atherosclerotic plaque noted in the right external carotid artery. Antegrade flow is noted in the right vertebral artery. Left Extracranial There is intimal thickening but no sig nificant atherosclerotic plaque noted in the left common carotid artery. There is heterogeneous, irregular atherosclerotic plaque noted in the left internal carotid artery. There is intimal thickenin g but no significant atherosclerotic plaque noted in the left external carotid artery. Antegrade flow is noted in the left vertebral artery. Procedure Carotid Duplex [id number]. The exam was diagnostic. The study was technically difficult. Due to body habitus. Interpretation Summary Mild (<50%) stenosis right extracranial internal carotid. Mild (<50%) stenosis left extracranial i nternal carotid. Flow within the vertebral arteries is antegrade bilaterally. Ordering Physicia n: Brittany Abraham Performed By: Candida Mcguire, RDCS, RVT 06/22/15 0740 Date Br sandy Mortensen MD CC: Brittany Abraham DO Date Dictated: 06/17/15 0851 Date Transcribed: 06/22/1540 Manager Strategic Marketing: Signed 24-Mar-2015 Pulmonary Function Report Comp Result: Comments: See Note; NOTES: [facility] Pulmonary Services/Neurology [address] [place] [address] Pulmonary Function Test (Comp) MR#: [id number] Acct: [id number] Name: GABBI WAY Rep #: [id number] : 1945 69 From: Pako Andre MD Referring Dr: Brittany Abraham DO Status: REG CLI Ordering Dr: Brittany Abraham DO Date: 03/22/15 Location: N Sex: F C DATE OF SER VICE: 03/22/2015 BRIEF HISTORY OF PRESENT ILLNESS: The patient is a 69-year-old female, currently under the care of Dr. Abraham, who presents for a complete pulmonary function test secondary to a diagnosis of pulmonary hypertension. The respiratory therapist reported good patient effort and reproducible results. INTERPRETATION: Forced expiration spirometry demonstrates a moderate large airways obstructive ventilatory defect. There is no significant improvement using strict ATS criteria. Spirograms are of good quality and do not plateau indicating slowing emptying areas of the lung. The respiratory flow volume loop shows decreased expiratory flow rates at all lung volumes consistent with airways obstruction. Lung volumes by body plethysmography show all lung volumes at the low er limit of normal. Diffusion capacity by single breath carbon monoxide is moderately reduced at 59% of predicted. Airway resistance is normal. No previous studies are available for comparison. I MPRESSION: Moderate large airways obstructive ventilatory defect with no significant response to bronchodilators using strict ATS criteria and a symmetric reduction in diffusion capacity consistent w ith a diagnosis of COPD. Other possible etiologies include pulmonary hypertension or acute congestive heart failure with pulmonary edema. PAKO ANDRE MD T: NTS JOB: [id number] SPIROMETRY Ref ULN/LLN Pre Pre Post Post Post Jd % Ref Jd % Ref % Chg FVC (L) 3.03 2.32 77 2.24 74 -4 FEV1 (L) 2.27 1.46 64 1.61 71 10 FEV1/FVC (%) 81 63 72 FEV6 2.10 2.17 3 FEF 25-75% (L/sec) 2.0 0 0.58 29 0.96 48 67 FEF 50% (L/sec) 2.89 (1.5 - 4.2) 1.03 36 1.89 65 82 FEF 75% (L/sec) 0.68 (0.3 - 1.1) 0.17 25 0.31 46 79 PEF (L/sec) 5.82 (3.0 - 8.7) 5.66 97 6.18 106 9 FET 100% (sec) 11.87 9.84 -17 FIVC (L/min) 3.03 1.89 62 1.60 53 -15 FEF/FIF50 0.36 0.87 143 MVV (L/min) DIFFUSION Ref ULN/LLN Pre Pre Post Post Jd % Ref Jd % Ref DLCO (ml/min/mmHg) 31.1 (22.8 - 39.4) 1 8.3 59 DL Adj (ml/mmHg/min) 31.1 (22.8 - 39.4) 18.3 59 DLCO/VA (ml/mHg/min/L) 3.47 (1.6 - 5.3) 5.07 146 VA (L) 3.60 IVC (L) 2.02 DL/VA Adj (ml/mHg/min/L) PLETHYSMOGRAPHY Ref ULN/LLN Pre Pre Post Post Post LUNG SOUNDS (BTPS) Jd % Ref Jd % Ref % Chg TLC (L) 5.41 (4.6 - 6.2) 4.68 87 VC (L) 3.03 2.86 95 IC (L) 2.13 (1.7 - 2.6) 2.[address] (L) 1.74 (0.8 - 2.7) 2.34 134 ERV (L) 1.06 (0.8 - 1.3) 0.54 50 RV (L) 2.19 (1.5 - 2.9) 1.82 83 RV/TLC (%) 41 (28.8 - 52.2) 39 RESISTANCE Ref Pre Pre Post Post Post Jd % Ref Jd % Ref % Chg Raw Total (cmH20/L/sec) Raw Insp (cmH20/L/sec) Raw Exp (cmH20/L/sec) Raw (cmH20/L/sec) 2.35 4.14 177 GAW (L/sec/cmH20) sGAW (L/s/cmH20/L) 0.245 0.075 31 Vtg (Raw) (Liters) Therapist Comments: Aerosol given with unit dose albuterol. Patient gave good effort for testing. Bilateral Breath Sounds clear but slightly diminished. Date: 03/22/15 Tech.: NAVJOT THURMAN Temp: PBar: Height(in.): 67 Weight(lbs.): 333 Diagnosis: PULMONARY HYPERTENSION Medication: : Dyspnea Rest: Dyspnea Exercise: Cough: Productive (cc): Persistent: Smoker: N How Long (pk/yrs): Stopped (yrs): Cigarettes: Cigars: 01/31 <Electronically signed by Pako Andre MD> Date Pako Andre MD CC: Pako Andre MD; Brittany Abraham DO Date Dictated: 1554 Date Transcribed: 03/22/15 155 Manager Strategic Marketing: Signed 11-Mar-2015 Echocardiogram Complete Result: Comments: See Note; NOTES: [facility] Cardiovascular Services [address] [place] [address] Echo Complete 03/11/15 1108 MR#: [id number] Acct: [id number] Name: Alvina ROLLE Rep #: [id number] : 1945 69 From: Niraj Raymundo MD Attending Dr: Niraj Raymundo MD Status: REG CLI Ordering Dr: Niraj Raymundo MD Date: 03/11/15 Location: [facility] Sex: F C Admitted: Rita fernandez This was a 2D Doppler, Color Flow transthoracic echocardiogram. Exam performed in department. Left Ventricle Normal LV size. D shaped septum in diastole. Mild concentric left ventricular hypert rophy. The estimated ejection fraction is 55 %. No regional wall motion abnormalities noted. Right Ventricle Normal RV size. Normal systolic function. Atria The left atrium is severely enlarged. The right atrium is moderately enlarged. Mitral Valve Normal mitral valve. Mild-Moderate (1-2+) eccentric mitral valve insufficiency. Tricuspid Valve Normal tricuspid valve. Moderate (2+) tricuspi d valve insufficiency. Pulmonary artery systolic pressure is 55 mmHg. Moderate pulmonary hypertension. Aortic Valve Trisinus/trileaflet aortic valve. Mild focal aortic valve calcification. Peak aort ic valve gradient 27 mmHg. Mean aortic valve gradient 14 mmHg. Mild (1+) aortic valve insufficiency. Pulmonic Valve The pulmonic valve is not well visualized. Great Vessels Normal aortic root. T he pulmonary artery is normal size. and partially collapses. Pericardium/Pleural No pericardial effusion. MMode/2D Measurements AND Calculations LVIDd: 5.2 cm IVSd: 1.4 cm LVOT diam: 2.1 cm Ao moe t diam: 3.0 cm LVIDs: 2.7 cm LVPWd: 1.3 cm LVOT area: 3.3 cm2 Ao root area: 6.9 cm2 RVDd: 3.5 cm FS: 48.0 % LA dimension: 4.9 cm LAV(MOD-bp): 131.9 ml LA A4 area: 32.2 cm2 RA A4 area: 25.8 cm2 LAV(MOD-bp) Indexed: 52.1 ml/m2 LAV(MOD-sp2): 147.4 ml LAV(MOD-sp4): 114.1 ml Doppler Measurements AND Calculations M V E max pavel: 131.6 cm/sec Lat Peak E' Pavel: Med Peak E' Pavel: MV V2 max: 12.5 cm/sec 9.6 cm/sec 156.7 cm/sec MV max P.8 mmHg MV V2 mean: 70.9 cm/sec MV mean P.7 mmHg MV V2 VTI: 35.5 c m MVA(VTI): 2.7 cm2 MV P1/2t max pavel: Ao V2 max: 263.5 cm/sec AI max pavel: 446.1 cm/sec LV V1 max: 149.6 cm/sec Ao max P.8 mmHg AI max P.7 mmHg 121.9 cm/sec MV P1/2t: 83.9 msec Ao V2 mean: 175.6 cm/sec AI dec slope: LV V1 max PG: MV dec slope: 522.2 cm/sec2 Ao mean P.0 mmHg 188.0 cm/sec2 6.0 mmHg MVA(P1/2t): 2.6 cm2 Ao V2 VTI: 62.3 cm AI P1/2t: 695.2 msec LV V1 mean PG: ALONSO(I,D): 1.5 cm2 3.1 mmHg ALONSO(V,D): 1.5 cm2 LV V1 mean: 81.7 cm/sec LV V1 VTI: 28.4 cm SV(LVOT): 94.6 ml PA V2 max: 102.1 cm/sec TR max pavel: 356.5 cm/sec E/E' lat: 10.5 PA max P.2 mmHg TR max P.9 mmHg E/E' med: 13.7 Interpretation Summary Normal LV size. The estimated ejection fraction is 55 %. Mild-Moderate (1-2+) eccentric mitral valve insufficiency. Pulmonary artery systolic pressure is 55 mmHg. Mild focal aortic valve calcification. Mild (1+) aortic valve insufficiency. Mild concentric left ventricular hypertrophy. Moder ate pulmonary hypertension. Ordering Physician: Niraj Raymundo Referring Physician: Brittany Abraahm D.O. Performed By: Carley Suazo RVT 03/11/15 1247 Date Niraj Raymundo MD CC: Brittany Abraham DO Date Dictated: 03/11/15 1108 Date Transcribed: 03/11/15 1247 Manager Strategic Marketing: Signed 23-Jul-2014 Suha Terry Digital & CAD Result: Comments: See Note; NOTES: [facility] Imaging Services [address] [place] [address] Breast Imaging Report MR#: [id number] Acct: [id number] Name: GABBI ROLLE Rep #: [id number] : 1945 F 69 From: Irvin Cho MD PCP: Brittany Abraham DO Status: REG CLI Exam# [id number] Ordering Dr: Brittany Abraham DO MAMMOGRAPHY - BILATERAL SCREENING REASON FOR EXAM: Fe male, 69 years old. Routine annual screening examination. PERTINENT HISTORY: Non-contributory. TECHNIQUE: Digital examination. Mediolateral oblique (MLO) and craniocaudad (CC) views of both breast s were obtained. CAD: CAD was performed on this study. COMPARISON: Comparison is made with prior study dated July 30, 2013 and July 25, 2012. FINDINGS: Breast Composition: There are scattered areas of fibroglandular density. There are no dominant masses or suspicious calcifications. Stable well-defined densities are seen in the deep upper lateral a spect of the right breast. These most likely represent small lymph nodes. CC: Brittany Abraham DO Manager Strategic Marketing: Signed 29-Jun-2014 Knee 4 or More Views Result: Comments: See Note; NOTES: [facility] Imaging Services [address] [place] [address] Radiology Report MR#: [id number] Acct: [id number] Name: GABBI ROLLE Rep #: [id number] : 1945 F 69 From: Po Segovia DO PCP: Brittany Abraham DO Status: REG CLI Study: Knee 4 or More Views Date of Exam: 06/29/14 Exam# [id number] Ordering Dr: Brittany Abraham DO STUDY: X-RAY - LEFT KNEE REASON FOR EXAM: Female, 69 years old. Knee pain TECHNIQUE: 4 view(s) of the knee. COMPARISON: None. FINDINGS: Normal visualized distal femur. Normal visualized proximal tibia and fibula. Normal proximal tibiofibular articulation. There is mild degenerative arthrosis of the medial femorotibial compartment. Normal lateral femorotibial darya rtment. There is mild degenerative arthrosis of the patellofemoral articulation. There is no demonstrated joint effusion. Enthesophyte is seen along the superior aspect of the patella. The soft tis jyoti structures are unremarkable. IMPRESSION: Degenerative changes within the left knee. Electronically Signed: Po Segovia DO at 6:27 EST Tel , Service support [phone], CC: Brittany Abraham DO Manager Strategic Marketing: Signed 29-Jun-2014 Knee 4 or More Views Result: Comments: See Note; NOTES: [facility] Imaging Services [address] [place] [address] Radiology Report MR#: [id number] Acct: [id number] Name: GABBI ROLLE Rep #: [id number] : 1945 F 69 From: Po Segovia DO PCP: Brittany Abraham DO Status: REG CLI Study: Knee 4 or More Views Date of Exam: 06/29/14 Exam# [id number] Ordering Dr: Brittany Abraham DO STUDY: X-RAY - RIGHT KNEE REASON FOR EXAM: Female, 69 years old. Knee pain TECHNIQUE: 4 view(s) of the knee. COMPARISON: None. FINDINGS: Normal visualized distal femur. Normal visualized proximal tibia and fibula. Normal proximal tibiofibular articulation. There is no demonstrated fracture. There is mild degenerative arthrosis of the medial femorotibial compartme nt. Normal lateral femorotibial compartment. There is mild degenerative arthrosis of the patellofemoral articulation. There is no demonstrated joint effusion. There are atherosclerotic calcification s. IMPRESSION: Degenerative changes, without acute fracture. Electronically Signed: Po Segovia DO at 6:35 EST Tel , Service horton pport [phone], CC: Brittany Abraham DO Manager Strategic Marketing: Signed 08-Feb-2014 OT Discharge Summary Result: Comments: See Note; NOTES: [facility] Occupational Therapy [facility] [address] [place] [address]. [address] [place] [address] Fax REHABILITATION SERVIC ES DISCHARGE SUMMARY MR#: [id number] Acct: [id number] Name: GABBI ROLLE Rep #: [id number] : 1945 68 From: Flavia Metz Referring DrYlui: Brittany Abraham DO Status: PRE RCR Eval Date: Rhoda Date: DATE OF SERVICE: PHYSICIAN: Brittany Abraham D.O. This 68-year-old female was seen for initial occupational therapy evaluation on December 15, 2013. She was referred with a diagnosis o f lymphedema. The patient demonstrated a need for new compression hose to help manage her lower extremity lymphedema. The patient was seen for initial visit and recommended compression class 20-30 mm Hg. The patient was to return for treatment to ensure proper fit of the compression garments; however, no further appointments were scheduled. At this time, the patient was to receive compression g arments through [facility]. The order was faxed over to them for the compression garments. However, unaware if the patient received those garments. At this time, again the patient was to return fo r followup visits to ensure proper fitting of compression hose. At this time, she has not done so and is discharged. Flavia Metz, OTR/L T: NTS JOB: [id number] <Electronically signed by Flavia Metz > 02/08/14 1513 CC: Signed 22-Dec-2013 Initial Evaluation - OT Result: Comments: See Note; NOTES: [facility] Occupational Therapy [address] [place] [address] Fax [facility]#: [id number] Acct: [id number] Name: GABBI ROLLE Rep #: [id number] : 1945 68 From: Flavia Metz Referring DrYuli: Brittany Abraham DO Status: DIS RCR Insurance: M VALERIE PART A B Eval Date: [place] DATE OF SERVICE: 12/15/2013 PHYSICIAN: Brittany Abraham M.D. HISTORY OF PRESENT ILLNESS: This is a 68-year-old female was seen for initial occupational therapy evaluation on December 15, 2013. The patient was referred with a diagnosis of lymphedema and venous stasis insufficiency. She was sent to our lymphedema clinic to help educate her on further management of her lower extremity swelling. PAST MEDICAL HISTORY: Includes heart condition, high blood pressure and diabetes. Her goals are to reduce swelling in her lower extremities. The patien t states she has utilized compression hose in the past. She states the last time she received them was about 2 years ago; however, she had significant difficulty keeping them up below her knees. She is hopeful there is another option. OBJECTIVE: The patient is demonstrating good mobility. She has brown skin discoloration at the lower calf region and rosado region. OBJECTIVE MEASUREMENTS: Righ t foot 24 cm, left 24.5 cm. Right ankle 33 cm, left 32 cm. Right lower calf 33 cm, left 32 cm. Right upper calf 55 cm, left 52 cm. Right below knee 63.5 cm, left 65 cm. OBSERVATION: The patient i s demonstrating with very narrow ankles and thick wider below knee region. It was going to make it difficult to keep compression hose up. I did educate the patient that there are glues that you can apply to help keep the compression hose in place. She is willing to attempt a try utilizing compression hose again. ADL santa, the patient reports decreased ability to put her shoes on when her feet are so swollen. She states she likes to do gardening and she is on her feet a lot; however, in the summer months, she is worried about utilizing the compression garments and being out in the heat. The patient reports no pain, no numbness and no tingling. Objectively, the patient demonstrates a need for compression garments to help manage lower extremity swelling, lymphedema. The patient woul d benefit from the 20 to 30 MmHg. GOALS: 1. The patient will demonstrate proper donning and doffing of compression hose by discharge. 2. The patient will demonstrate knowledge and understanding o f wrapping to her extremities to help diminish swelling by discharge. 3. The patient will demonstrate a reduction in lower extremity swelling by 20% or greater by discharge. TREATMENT PLAN: I coreen n to see the patient 2-3 visits. The treatment will focus on educating the patient on lower extremity wrapping, management exercises, compression hose use and alternatives to help keep lower extremit y compression hose up. A home exercise program will be designed to meet the patient's needs and demonstrate level of understanding. Flavia Metz OTR/L T: NTS JOB: [id number] <Electr onically signed by Flavia Metz > 12/22/13 1311 CC: Signed For Medicare only, by signing this I certify the plan of care. Physicians Signature Date 14-Dec-2013 Liver Result: Comments: See Note; NOTES: [facility] Imaging Services [address] [facility] [place] [address] Ultrasound Report MR#: [id number] Acct: [id number] Name: GABBI ROLLE Rep #: [id number] : 1945 F 68 From: Irvin Cho MD PCP: Brittany Abraham DO Status: REG CLI Study: Liver Date of Exam: 12/14/13 Exam# [id number] Ordering Dr: Brittany Abraham DO STUDY: ABDOMINAL ULTRAS OUND - RIGHT UPPER QUADRANT REASON FOR VISIT: Female, 68 years old. Liver disease. TECHNIQUE: Ultrasound evaluation of the right upper quadrant was performed with real-time and static dorsey-scale im aging. TECHNICAL QUALITY: Adequate. COMPARISON: None. FINDINGS: Liver: The liver is enlarged and measures 19.6 cm. There is increased echogenicity consisten t with fatty infiltration. The bile ducts are within normal limits. There is hepatic color flow. The direction of portal flow is hepatopetal. There is no demonstrated mass lesion. Gallbladder: Lissett l distended gallbladder. The gallbladder wall measures 2.3 mm. There is a negative sonographic Redd's sign. There is no pericholecystic fluid. There are no gallstones. Common Bile Duct (C.B.D.): T he common bile duct measures 3.2 mm. Pancreas: Normal size of the head, body and tail of the pancreas. There is normal echogenicity of the pancreas. There is no demonstrated pancreatic mass or cyst. Right Kidney: Normal size of the right kidney. The right kidney measures 11.6 cm. Normal renal cortex. The right cortex measures 1.2 cm. There is no demonstrated renal mass or cyst. There is no rig ht hydronephrosis. IMPRESSION: Hepatomegaly and fatty infiltration of the liver. Electronically Signed: Irvin Cho MD at 10:02 EDT Tel [phone], Service support [phone], CC: Brittany Abraham DO Manager Strategic Marketing: Signed 18-Nov-2013 Chest PA and Lateral Result: Comments: See Note; NOTES: [facility] [address] [place] [id number] Radiology Report MR#: [id number] Acct: [id number] Name: GABBI ROLLE Rep #: [id number] : 1945 F 68 From: Irvin Cho MD PCP: Brittany Abraham DO Status: REG CLI Study: Chest PA and Lateral Date of Exam: 11/18/13 Exam# [id number] Ordering Dr: Sara Swartz STUDY: X-RAY CHEST REASON FOR EXAM: Female, 68 years old. Followup for pneumonia. TECHNIQUE: PA and lateral views of the chest. COMPARISON: Comparison is made with prior study of November 03, 2013. FINDINGS: The right upper lobe infiltration has resolved. There is evidence of calcified old granulomatous disease. There is no demonstrated pleural abnormality. There is moderate cardiac enlargement. Normal mediastinum and veronika. Normal visualized pulmonary arteries. Normal visualized aortic arch and descending thoracic aorta. There are diffuse degenerative changes of the visualized thoracic spine. Normal visualized ribs, clavicles, and shoulders. There is no demonstrated abnormality of the visualized soft tissue structures of the upper abdomen. IMPRESSION: The previously seen infiltration in the right upper lobe has resolved. Electronically Signed: Irvin Cho M.D. at 15:41 EDT , Service support [phone], CC: Sara Swartz; Brittany Abraham DO Manager Strategic Marketing: Signed 03-Nov-2013 Chest PA and Lateral Result: Comments: See Note; NOTES: [facility] Services [address] [place] [address] Radiology Report MR#: [id number] Acct: [id number] Name: GABBI ROLLE Rep #: [id number] : 1945 F 68 From: Irvin Cho MD PCP: Brittany Abraham DO Status: REG CLI Study: Chest PA and Lateral Date of Exam: 11/03/13 Exam# [id number] Ordering Dr: Brittany Abraham DO STUDY: X- RAY CHEST REASON FOR EXAM: Female, 68 years old. Cough and hemoptysis. TECHNIQUE: PA and lateral views of the chest. COMPARISON: Comparison is made with prior examination dated June 09, 2009. FINDINGS: There is evidence of consolidation in the right upper lobe with fullness of the right hilum. Radiographic followup until complete resolution is recom mended. Mild elevation of the right hemidiaphragm. There is mild cardiac enlargement. Normal mediastinum and veronika. Normal visualized pulmonary arteries. Normal visualized aortic arch and descending thoracic aorta. There are diffuse degenerative changes of the visualized thoracic spine. Normal visualized ribs, clavicles, and shoulders. There is no demonstrated abnormality of the visualized sof t tissue structures of the upper abdomen. 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 Radiographic followup is recommended following treatment. Electronically Signed: Irvin Cho M.D. at 11:18 EDT , Service support [phone], Fax CC: Brittany Abraham DO Manager Strategic Marketing: Signed 30-Jul-2013 [facility] [employer] CAD Result: Comments: See Note; NOTES: [facility] Services [address] [place] [address] Breast Imaging Report MR#: [id number] Acct: [id number] Name: GABBI ROLLE Rep #: [id number] : 1945 F 68 From: Irvin Cho MD PCP: Brittany Abraham DO Status: REG CLI Exam# [id number] Ordering Dr: Brittany Abraham DO MAMMOGRAPHY - BILATERAL SCREENING REASON FOR EXAM: Fe male, 68 years old. Routine annual screening examination. PERTINENT HISTORY: Non-contributory. TECHNIQUE: Digital examination. Mediolateral oblique (MLO) and craniocaudad (CC) views of both breast s were obtained. CAD: CAD was performed on this study. COMPARISON: Comparison is made with prior study dated July 25, 2012 and July 20, 2011. FINDINGS: The breast composition is composed of scattered fibroglandular tissues ranging from 25% to 50% of the breast. There are no dominant masses or suspicious calcifications. 2 small well-defined densitie s are seen in the deep upper lateral aspect of the right breast. These are unchanged and most likely present 2 small lymph nodes. No other significant abnormalities are identified. There has been no significant change since the prior study. IMPRESSION: Stable bilateral screening mammogram. Yearly follow-up recommended. (A) __ ASSESSMENT CATEGORY: BIRADS Category 2: Benign finding(s). A letter regarding these results will be sent to the patient by the facility within 30 days. Approximately 10% of breast cancers are n ot detected by mammography. A normal mammogram should not delay biopsy of a clinically suspicious abnormality. Electronically Signed: Irvin Cho M.D. at 8:11 EST Tel , Service support [phone], CC: Brittany Abraham DO Manager Strategic Marketing: Signed 30-Jul-2013 Dexa Bone Density Study (HP) Result: Comments: See Note; NOTES: [facility] Services [address] [place] [address] Bone Density Report MR#: [id number] Acct: [id number] Name: GABBI ROLLE Rep #: : 1945 F 68 From: Irvin Cho MD PCP: Brittany Abraham DO Status: REG CLI Study: Dexa Bone Density Study (HP) Date of Exam: 07/30/13 Exam# [id number] Ordering Dr: Brittany Abraham DO STUDY: DUAL ENERGY X-RAY ABSORPTIOMETRY / DXA REASON FOR EXAM: Female, 68 years old. Osteopenia. TECHNIQUE: Bone Mineral Density (BMD) measurements of lumbar spine and bilateral hips were geraldine dYuli COMPARISON: Comparison is made with prior study dated July 18, 2010. FINDINGS: Lumbar Spine (L1-L4): g/cm2 (1.408) / T-score (1.9) / Z-score (3.6) Find ings are suggestive of normal bone density with a low fracture risk. Left Femur Total: g/cm2 (1.016) / T-score (0.1) / Z-score (1.5) Left Femoral Neck: g/cm2 (0.899) / T-score (-1.0) / Z-score (0.7) Right Femur Total: g/cm2 (1.071) / T-score (0.5) / Z-score (2.0) Right Femoral Neck: g/cm2 (0.997) / T-score (-0.3) / Z-score (1.4) The T-Scores on the most recent prior examination were: Lumbar S pine (L1-L4): There has been no change of bone density since the previous examination. Left Femur Total: which represents a worsening of 0.3%. Right Femur Total: which represents a worsening of 2.9% . IMPRESSION: The patient is considered normal as outlined below according to World Mike Organization (WHO) criteria with a low fracture risk. There has been w orsening of bone density since the previous examination. Reference Information: The T-score is the number of standard deviations above or below the standard whi ch is normal for young adults at their peak bone mineral density. The World Health Organization (WHO) interprets the T-scores as follows: Above -1 Normal bone density Between -1 and -2.5 Osteopenia Equal to / or below -2.5 Osteoporosis As a practical clinical guideline, osteopenia may be graded as follows: Mild -1 through -1.5 Moderate -1.6 through -2.0 Severe -2.1 through -2.4 The Z-scor e is the number of standard deviations above or below age-matched controls. A Z-score of less than -1.5 would be considered abnormal. References: 1. NIH Osteoporosis and Related Bone Diseases http:/ /www.osteo.org 2. International Society for Clinical Densitometry http://www.iscd.org 3. National Osteoporosis Foundation http://www.nof.org Electronically Signed: Irvin Cho M.D. at 9:58 EST , Service support [phone], CC: Brittany Abraham DO Manager Strategic Marketing: Signed Immunization Name Dates Details Influenza (3 years and up) on: 13-Jun-2007 Influenza (3 years and up) on: 19-May-2009 Pneumococcal (2 years and up) on: 02-Aug-2008 Comments: Lot #[id number] date:mount given:0.5Site given: right deltoidGiven by:Wf. Social History Name Dates Details No Caffeine Use Status: Active Non Drinker/No Alcohol Use Status: Active Non Smoker/No Tobacco Use Status: Active Tobacco use: Never smoker. Status: Active Smoking Status Name Dates Details Never smoker Vital Signs Date Test Result Details :33 Temperature 97.5 f Comments: Method: Temporal Pulse 60 /min Comments: Pattern: Regular Respiration Rate 19 /min Comments: Pattern: Unlabored O2 SAT 93 % Comments: Room air BP Systolic 148 mm[Hg] Comments: Patient Position: Sitting; Cuff Location: Left Arm; Cuff Size: Standard BP Diastolic 82 mm[Hg] Comments: Patient Position: Sitting; Cuff Location: Left Arm; Cuff Size: Standard Weight 318.125 lb Height 66 in Body Mass Index Calculated 51.35 kg/m2 Body Surface Area Calculated 2.44 m2 :36 Temperature 97.7 f Comments: Method: Temporal Pulse 83 /min Comments: Pattern: Regular Respiration Rate 18 /min Comments: Pattern: Unlabored O2 SAT 93 % Comments: Room air BP Systolic 124 mm[Hg] Comments: Patient Position: Sitting; Cuff Location: Left Arm; Cuff Size: Standard BP Diastolic 72 mm[Hg] Comments: Patient Position: Sitting; Cuff Location: Left Arm; Cuff Size: Standard Weight 352 lb Height 66 in Body Mass Index Calculated 56.81 kg/m2 Body Surface Area Calculated 2.54 m2 :49 Temperature 97.7 f Pulse 97 /min Comments: Pattern: Regular Respiration Rate 17 /min Comments: Pattern: Unlabored O2 SAT 74 % Comments: Room air BP Systolic 120 mm[Hg] Comments: Patient Position: Sitting; Cuff Location: Left Arm; Cuff Size: Standard BP Diastolic 62 mm[Hg] Comments: Patient Position: Sitting; Cuff Location: Left Arm; Cuff Size: Standard Weight 354.5 lb Height 66 in Body Mass Index Calculated 57.22 kg/m2 Body Surface Area Calculated 2.55 m2 :12 Temperature 97 f Comments: Method: Temporal Pulse 90 /min Comments: Pattern: Regular Respiration Rate 18 /min Comments: Pattern: Labored O2 SAT 94 % Comments: Room air BP Systolic 142 mm[Hg] Comments: Patient Position: Sitting; Cuff Location: Left Arm; Cuff Size: Standard BP Diastolic 70 mm[Hg] Comments: Patient Position: Sitting; Cuff Location: Left Arm; Cuff Size: Standard Weight 348 lb Height 66 in Body Mass Index Calculated 56.17 kg/m2 Body Surface Area Calculated 2.53 m2 :24 Temperature 97.6 f Pulse 68 /min Comments: Pattern: Regular Respiration Rate 19 /min Comments: Pattern: Unlabored O2 SAT 95 % Comments: Room air BP Systolic 126 mm[Hg] Comments: Patient Position: Sitting; Cuff Location: Left Arm; Cuff Size: Standard BP Diastolic 82 mm[Hg] Comments: Patient Position: Sitting; Cuff Location: Left Arm; Cuff Size: Standard Weight 334 lb Height 66 in Body Mass Index Calculated 53.91 kg/m2 Body Surface Area Calculated 2.49 m2 :50 Temperature 97.7 f Pulse 84 /min Comments: Pattern: Regular Respiration Rate 20 /min Comments: Pattern: Unlabored O2 SAT 95 % Comments: Room air BP Systolic 148 mm[Hg] Comments: Patient Position: Sitting; Cuff Location: Left Arm; Cuff Size: Standard BP Diastolic 86 mm[Hg] Comments: Patient Position: Sitting; Cuff Location: Left Arm; Cuff Size: Standard Weight 393 lb Height 66 in Body Mass Index Calculated 63.43 kg/m2 Body Surface Area Calculated 2.67 m2 :57 Temperature 97.9 f Pulse 71 /min Comments: Pattern: Regular Respiration Rate 18 /min Comments: Pattern: Unlabored O2 SAT 97 % Comments: Room air BP Systolic 124 mm[Hg] Comments: Patient Position: Sitting; Cuff Location: Left Arm; Cuff Size: Standard BP Diastolic 82 mm[Hg] Comments: Patient Position: Sitting; Cuff Location: Left Arm; Cuff Size: Standard Weight 364.5 lb Height 66 in Body Mass Index Calculated 58.83 kg/m2 Body Surface Area Calculated 2.58 m2 :19 Temperature 97.5 f Pulse 68 /min Comments: Pattern: Regular Respiration Rate 20 /min Comments: Pattern: Labored O2 SAT 97 % Comments: Room air BP Systolic 132 mm[Hg] Comments: Patient Position: Sitting; Cuff Location: Left Arm; Cuff Size: Standard BP Diastolic 84 mm[Hg] Comments: Patient Position: Sitting; Cuff Location: Left Arm; Cuff Size: Standard Weight 364.5 lb Height 66 in Body Mass Index Calculated 58.83 kg/m2 Body Surface Area Calculated 2.58 m2 :57 Temperature 97.6 f Pulse 72 /min Comments: Pattern: Regular Respiration Rate 18 /min Comments: Pattern: Unlabored O2 SAT 96 % Comments: Room air BP Systolic 142 mm[Hg] Comments: Patient Position: Sitting; Cuff Location: Left Arm; Cuff Size: Standard BP Diastolic 84 mm[Hg] Comments: Patient Position: Sitting; Cuff Location: Left Arm; Cuff Size: Standard Weight 364.5 lb Height 66 in Body Mass Index Calculated 58.83 kg/m2 Body Surface Area Calculated 2.58 m2 :02 Temperature 97.5 f Pulse 78 /min Comments: Pattern: Regular Respiration Rate 18 /min Comments: Pattern: Unlabored O2 SAT 97 % Comments: Room air BP Systolic 122 mm[Hg] Comments: Patient Position: Sitting; Cuff Location: Left Arm; Cuff Size: Standard BP Diastolic 82 mm[Hg] Comments: Patient Position: Sitting; Cuff Location: Left Arm; Cuff Size: Standard Weight 367 lb Height 66 in Body Mass Index Calculated 59.23 kg/m2 Body Surface Area Calculated 2.59 m2 :39 Temperature 101.5 f Comments: Method: Temporal Pulse 98 /min Comments: Pattern: Regular Respiration Rate 20 /min Comments: Pattern: Unlabored O2 SAT 92 % Comments: Room air Weight 367 lb Height 66 in Body Mass Index Calculated 59.23 kg/m2 Body Surface Area Calculated 2.59 m2 :21 Temperature 97.9 f Pulse 78 /min Comments: Pattern: Regular Respiration Rate 16 /min Comments: Pattern: Unlabored O2 SAT 99 % Comments: Room air BP Systolic 136 mm[Hg] Comments: Patient Position: Sitting; Cuff Location: Left Arm; Cuff Size: Standard BP Diastolic 84 mm[Hg] Comments: Patient Position: Sitting; Cuff Location: Left Arm; Cuff Size: Standard Weight 367 lb Height 66 in Body Mass Index Calculated 59.23 kg/m2 Body Surface Area Calculated 2.59 m2 :37 Temperature 97.6 f Pulse 70 /min Comments: Pattern: Regular Respiration Rate 17 /min Comments: Pattern: Unlabored O2 SAT 97 % Comments: Room air BP Systolic 124 mm[Hg] Comments: Patient Position: Sitting; Cuff Location: Left Arm; Cuff Size: Standard BP Diastolic 82 mm[Hg] Comments: Patient Position: Sitting; Cuff Location: Left Arm; Cuff Size: Standard Weight 357.5 lb Height 66 in Body Mass Index Calculated 57.7 kg/m2 Body Surface Area Calculated 2.56 m2 :01 Temperature 97.1 f Pulse 76 /min Comments: Pattern: Regular Respiration Rate 17 /min Comments: Pattern: Unlabored O2 SAT 100 % Comments: Room air BP Systolic 124 mm[Hg] Comments: Patient Position: Sitting; Cuff Location: Left Arm; Cuff Size: Standard BP Diastolic 82 mm[Hg] Comments: Patient Position: Sitting; Cuff Location: Left Arm; Cuff Size: Standard Weight 358 lb Height 66 in Body Mass Index Calculated 57.78 kg/m2 Body Surface Area Calculated 2.56 m2 :24 Temperature 97.8 f Pulse 80 /min Comments: Pattern: Regular Respiration Rate 16 /min Comments: Pattern: Unlabored O2 SAT 98 % Comments: Room air BP Systolic 134 mm[Hg] Comments: Patient Position: Sitting; Cuff Location: Left Arm; Cuff Size: Standard BP Diastolic 82 mm[Hg] Comments: Patient Position: Sitting; Cuff Location: Left Arm; Cuff Size: Standard Weight 355 lb Height 66 in Body Mass Index Calculated 57.3 kg/m2 Body Surface Area Calculated 2.55 m2 :28 Temperature 98.2 f Comments: Method: Temporal Pulse 85 /min Comments: Pattern: Regular Respiration Rate 18 /min Comments: Pattern: Unlabored O2 SAT 93 % Comments: Room air BP Systolic 122 mm[Hg] Comments: Patient Position: Sitting; Cuff Location: Left Arm; Cuff Size: Large BP Diastolic 84 mm[Hg] Comments: Patient Position: Sitting; Cuff Location: Left Arm; Cuff Size: Large Weight 361 lb Height 66 in Body Mass Index Calculated 58.27 kg/m2 Body Surface Area Calculated 2.57 m2 :09 Temperature 97.6 f Pulse 69 /min Comments: Pattern: Regular Respiration Rate 18 /min Comments: Pattern: Unlabored O2 SAT 97 % Comments: Room air BP Systolic 118 mm[Hg] Comments: Patient Position: Sitting; Cuff Location: Left Arm; Cuff Size: Standard BP Diastolic 76 mm[Hg] Comments: Patient Position: Sitting; Cuff Location: Left Arm; Cuff Size: Standard Weight 361 lb Height 66 in Body Mass Index Calculated 58.27 kg/m2 Body Surface Area Calculated 2.57 m2 :18 Weight 357 lb Height 66 in Body Mass Index Calculated 57.62 kg/m2 Body Surface Area Calculated 2.56 m2 :21 Temperature 97.8 f Comments: Method: Temporal Pulse 78 /min Comments: Pattern: Regular Respiration Rate 18 /min Comments: Pattern: Unlabored BP Systolic 122 mm[Hg] Comments: Patient Position: Sitting; Cuff Location: Left Arm; Cuff Size: Standard BP Diastolic 82 mm[Hg] Comments: Patient Position: Sitting; Cuff Location: Left Arm; Cuff Size: Standard Weight 357 lb Height 66 in Body Mass Index Calculated 57.62 kg/m2 Body Surface Area Calculated 2.56 m2 :25 Comments: used doppler to take bp 138/0 Temperature 97.7 f Comments: Method: Temporal Pulse 77 /min Comments: Pattern: Regular Respiration Rate 16 /min Comments: Pattern: Unlabored O2 SAT 97 % Comments: Room air Weight 357 lb Height 66 in Body Mass Index Calculated 57.62 kg/m2 Body Surface Area Calculated 2.56 m2 :15 Temperature 98.6 f Comments: Method: Temporal Pulse 72 /min Comments: Pattern: Regular Respiration Rate 16 /min Comments: Pattern: Unlabored O2 SAT 96 % Comments: Room air BP Systolic 114 mm[Hg] Comments: Patient Position: Sitting; Cuff Location: Left Arm; Cuff Size: Large BP Diastolic 70 mm[Hg] Comments: Patient Position: Sitting; Cuff Location: Left Arm; Cuff Size: Large Weight 345 lb Height 66 in Body Mass Index Calculated 55.68 kg/m2 Body Surface Area Calculated 2.52 m2 :07 Temperature 97.6 f Comments: Method: Temporal Pulse 81 /min Comments: Pattern: Regular Respiration Rate 16 /min Comments: Pattern: Unlabored O2 SAT 98 % Comments: Room air BP Systolic 126 mm[Hg] Comments: Patient Position: Sitting; Cuff Location: Left Arm; Cuff Size: Large BP Diastolic 78 mm[Hg] Comments: Patient Position: Sitting; Cuff Location: Left Arm; Cuff Size: Large Weight 336 lb Height 66 in Body Mass Index Calculated 54.23 kg/m2 Body Surface Area Calculated 2.49 m2 :38 Temperature 97.9 f Pulse 66 /min Comments: Pattern: Regular O2 SAT 98 % Comments: Room air BP Systolic 128 mm[Hg] Comments: Patient Position: Sitting; Cuff Location: Left Arm; Cuff Size: Standard BP Diastolic 82 mm[Hg] Comments: Patient Position: Sitting; Cuff Location: Left Arm; Cuff Size: Standard :29 Temperature 97.3 f Comments: Method: Oral Pulse 65 /min Comments: Pattern: Regular Respiration Rate 16 /min Comments: Pattern: Unlabored BP Systolic 118 mm[Hg] Comments: Patient Position: Sitting; Cuff Location: Left Arm; Cuff Size: Large BP Diastolic 92 mm[Hg] Comments: Patient Position: Sitting; Cuff Location: Left Arm; Cuff Size: Large Weight 337 lb Height 66 in Body Mass Index Calculated 54.39 kg/m2 Body Surface Area Calculated 2.5 m2 :06 Temperature 97.3 f Comments: Method: Oral Pulse 75 /min Comments: Pattern: Regular Respiration Rate 16 /min Comments: Pattern: Unlabored BP Systolic 132 mm[Hg] Comments: Patient Position: Sitting; Cuff Location: Left Arm; Cuff Size: Large BP Diastolic 84 mm[Hg] Comments: Patient Position: Sitting; Cuff Location: Left Arm; Cuff Size: Large Weight 335 lb Height 66 in Body Mass Index Calculated 54.07 kg/m2 Body Surface Area Calculated 2.49 m2 :21 Temperature 97.2 f Pulse 68 /min Comments: Pattern: Regular Respiration Rate 16 /min Comments: Pattern: Unlabored BP Systolic 120 mm[Hg] Comments: Patient Position: Sitting; Cuff Location: Left Arm; Cuff Size: Large BP Diastolic 62 mm[Hg] Comments: Patient Position: Sitting; Cuff Location: Left Arm; Cuff Size: Large Weight 322 lb Height 66 in Body Mass Index Calculated 51.97 kg/m2 Body Surface Area Calculated 2.45 m2 :28 Temperature 98.5 f Pulse 68 /min Comments: Pattern: Regular Respiration Rate 16 /min Comments: Pattern: Unlabored BP Systolic 128 mm[Hg] Comments: Patient Position: Sitting; Cuff Location: Left Arm; Cuff Size: Standard BP Diastolic 72 mm[Hg] Comments: Patient Position: Sitting; Cuff Location: Left Arm; Cuff Size: Standard Weight 318 lb Height 66 in Body Mass Index Calculated 51.33 kg/m2 Body Surface Area Calculated 2.44 m2 :16 Temperature 96.8 f Pulse 74 /min Comments: Pattern: Regular Respiration Rate 16 /min Comments: Pattern: Unlabored BP Systolic 136 mm[Hg] Comments: Patient Position: Sitting; Cuff Location: Left Arm; Cuff Size: Large BP Diastolic 88 mm[Hg] Comments: Patient Position: Sitting; Cuff Location: Left Arm; Cuff Size: Large Weight 318 lb Height 66 in Body Mass Index Calculated 51.33 kg/m2 Body Surface Area Calculated 2.44 m2 :35 Temperature 97.9 f Pulse 62 /min Comments: Pattern: Regular Respiration Rate 16 /min Comments: Pattern: Unlabored BP Systolic 108 mm[Hg] Comments: Patient Position: Sitting; Cuff Location: Left Arm; Cuff Size: Large BP Diastolic 64 mm[Hg] Comments: Patient Position: Sitting; Cuff Location: Left Arm; Cuff Size: Large Weight 316 lb Height 66 in Body Mass Index Calculated 51 kg/m2 Body Surface Area Calculated 2.43 m2 :10 Temperature 98.8 f Comments: Method: Oral Pulse 76 /min Comments: Pattern: Regular Respiration Rate 18 /min O2 SAT 98 % Comments: Room air BP Systolic 130 mm[Hg] Comments: Patient Position: Sitting; Cuff Location: Left Arm; Cuff Size: Standard BP Diastolic 70 mm[Hg] Comments: Patient Position: Sitting; Cuff Location: Left Arm; Cuff Size: Standard Weight 314.25 lb Height 66 in Body Mass Index Calculated 50.72 kg/m2 Body Surface Area Calculated 2.42 m2 :14 Temperature 98.9 f Comments: Method: Oral Pulse 72 /min Comments: Pattern: Regular Respiration Rate 20 /min O2 SAT 94 % Comments: Room air BP Systolic 132 mm[Hg] Comments: Patient Position: Sitting; Cuff Location: Left Arm; Cuff Size: Standard BP Diastolic 76 mm[Hg] Comments: Patient Position: Sitting; Cuff Location: Left Arm; Cuff Size: Standard Weight 314.3125 lb Height 66 in Body Mass Index Calculated 50.73 kg/m2 Body Surface Area Calculated 2.42 m2 :48 Temperature 100.1 f Comments: Method: Oral Pulse 72 /min Comments: Pattern: Regular Respiration Rate 20 /min O2 SAT 97 % Comments: Room air BP Systolic 136 mm[Hg] Comments: Patient Position: Sitting; Cuff Location: Left Arm; Cuff Size: Standard BP Diastolic 82 mm[Hg] Comments: Patient Position: Sitting; Cuff Location: Left Arm; Cuff Size: Standard Weight 316.5 lb Height 66 in Body Mass Index Calculated 51.08 kg/m2 Body Surface Area Calculated 2.43 m2 :35 Temperature 97.6 f Pulse 60 /min Comments: Pattern: Regular Respiration Rate 18 /min Comments: Pattern: Unlabored BP Systolic 110 mm[Hg] Comments: Patient Position: Sitting; Cuff Location: Left Arm; Cuff Size: Large BP Diastolic 68 mm[Hg] Comments: Patient Position: Sitting; Cuff Location: Left Arm; Cuff Size: Large Weight 325 lb Height 66.25 in Body Mass Index Calculated 52.06 kg/m2 Body Surface Area Calculated 2.47 m2 :12 Temperature 97.9 f Pulse 60 /min Comments: Pattern: Regular Respiration Rate 18 /min Comments: Pattern: Unlabored BP Systolic 110 mm[Hg] Comments: Patient Position: Sitting; Cuff Location: Left Arm; Cuff Size: Large BP Diastolic 62 mm[Hg] Comments: Patient Position: Sitting; Cuff Location: Left Arm; Cuff Size: Large Weight 315 lb Height 66.25 in Body Mass Index Calculated 50.46 kg/m2 Body Surface Area Calculated 2.43 m2 :55 Temperature 97.9 f Pulse 56 /min Comments: Pattern: Regular Respiration Rate 18 /min Comments: Pattern: Unlabored BP Systolic 122 mm[Hg] Comments: Patient Position: Sitting; Cuff Location: Left Arm; Cuff Size: Large BP Diastolic 68 mm[Hg] Comments: Patient Position: Sitting; Cuff Location: Left Arm; Cuff Size: Large Weight 312 lb Height 66.25 in Body Mass Index Calculated 49.98 kg/m2 Body Surface Area Calculated 2.42 m2 :43 Temperature 97.9 f Pulse 56 /min Comments: Pattern: Regular Respiration Rate 18 /min Comments: Pattern: Unlabored BP Systolic 110 mm[Hg] Comments: Patient Position: Sitting; Cuff Location: Left Arm; Cuff Size: Large BP Diastolic 62 mm[Hg] Comments: Patient Position: Sitting; Cuff Location: Left Arm; Cuff Size: Large Weight 305 lb Height 66.25 in Body Mass Index Calculated 48.86 kg/m2 Body Surface Area Calculated 2.4 m2 :04 Temperature 97 f Pulse 72 /min Comments: Pattern: Regular Respiration Rate 18 /min Comments: Pattern: Unlabored BP Systolic 140 mm[Hg] Comments: Patient Position: Sitting; Cuff Location: Left Arm; Cuff Size: Large BP Diastolic 70 mm[Hg] Comments: Patient Position: Sitting; Cuff Location: Left Arm; Cuff Size: Large Weight 315 lb Height 66.25 in Body Mass Index Calculated 50.46 kg/m2 Body Surface Area Calculated 2.43 m2 :49 Temperature 97.7 f Pulse 64 /min Comments: Pattern: Regular Respiration Rate 16 /min Comments: Pattern: Unlabored BP Systolic 118 mm[Hg] Comments: Patient Position: Sitting; Cuff Location: Left Arm; Cuff Size: Large BP Diastolic 78 mm[Hg] Comments: Patient Position: Sitting; Cuff Location: Left Arm; Cuff Size: Large Weight 311 lb Height 66.25 in Body Mass Index Calculated 49.82 kg/m2 Body Surface Area Calculated 2.42 m2 :30 Temperature 97.3 f Pulse 56 /min Comments: Pattern: Regular Respiration Rate 18 /min Comments: Pattern: Unlabored BP Systolic 116 mm[Hg] Comments: Patient Position: Sitting; Cuff Location: Left Arm; Cuff Size: Large BP Diastolic 62 mm[Hg] Comments: Patient Position: Sitting; Cuff Location: Left Arm; Cuff Size: Large Weight 307 lb Height 66.25 in Body Mass Index Calculated 49.18 kg/m2 Body Surface Area Calculated 2.41 m2 :12 Temperature 96.7 f Pulse 56 /min Comments: Pattern: Regular Respiration Rate 18 /min Comments: Pattern: Unlabored BP Systolic 100 mm[Hg] Comments: Patient Position: Sitting; Cuff Location: Left Arm; Cuff Size: Large BP Diastolic 62 mm[Hg] Comments: Patient Position: Sitting; Cuff Location: Left Arm; Cuff Size: Large Weight 310 lb Height 66.25 in Body Mass Index Calculated 49.66 kg/m2 Body Surface Area Calculated 2.42 m2 :05 Temperature 97.2 f Pulse 60 /min Comments: Pattern: Regular Respiration Rate 16 /min Comments: Pattern: Unlabored BP Systolic 122 mm[Hg] Comments: Patient Position: Sitting; Cuff Location: Left Arm; Cuff Size: Large BP Diastolic 78 mm[Hg] Comments: Patient Position: Sitting; Cuff Location: Left Arm; Cuff Size: Large Weight 307 lb Height 66.25 in Body Mass Index Calculated 49.18 kg/m2 Body Surface Area Calculated 2.41 m2 :33 Temperature 100.7 f Comments: Method: Oral Pulse 64 /min Comments: Pattern: Regular Respiration Rate 16 /min Comments: Pattern: Unlabored BP Systolic 116 mm[Hg] Comments: Patient Position: Sitting; Cuff Location: Left Arm; Cuff Size: Large BP Diastolic 72 mm[Hg] Comments: Patient Position: Sitting; Cuff Location: Left Arm; Cuff Size: Large Weight 301 lb Height 66.25 in Body Mass Index Calculated 48.22 kg/m2 Body Surface Area Calculated 2.39 m2 :40 Temperature 97.6 f Pulse 68 /min Comments: Pattern: Regular Respiration Rate 18 /min Comments: Pattern: Unlabored BP Systolic 138 mm[Hg] Comments: Patient Position: Sitting; Cuff Location: Left Arm; Cuff Size: Large BP Diastolic 74 mm[Hg] Comments: Patient Position: Sitting; Cuff Location: Left Arm; Cuff Size: Large Weight 302 lb Height 66.25 in Body Mass Index Calculated 48.38 kg/m2 Body Surface Area Calculated 2.39 m2 :10 Temperature 98.3 f Comments: Method: Oral Pulse 58 /min Comments: Pattern: Regular BP Systolic 122 mm[Hg] Comments: Patient Position: Sitting; Cuff Location: Left Arm; Cuff Size: Standard BP Diastolic 70 mm[Hg] Comments: Patient Position: Sitting; Cuff Location: Left Arm; Cuff Size: Standard Weight 302 lb Height 66.25 in Body Mass Index Calculated 48.38 kg/m2 Body Surface Area Calculated 2.39 m2 :02 Temperature 96.6 f Pulse 60 /min Comments: Pattern: Regular Respiration Rate 16 /min Comments: Pattern: Unlabored BP Systolic 100 mm[Hg] Comments: Patient Position: Sitting; Cuff Location: Left Arm; Cuff Size: Large BP Diastolic 60 mm[Hg] Comments: Patient Position: Sitting; Cuff Location: Left Arm; Cuff Size: Large Weight 302 lb Height 66.25 in Body Mass Index Calculated 48.38 kg/m2 Body Surface Area Calculated 2.39 m2 :37 Temperature 97.4 f Pulse 56 /min Comments: Pattern: Regular Respiration Rate 18 /min Comments: Pattern: Unlabored BP Systolic 122 mm[Hg] Comments: Patient Position: Sitting; Cuff Location: Left Arm; Cuff Size: Standard BP Diastolic 74 mm[Hg] Comments: Patient Position: Sitting; Cuff Location: Left Arm; Cuff Size: Standard Weight 293 lb Height 66.25 in Body Mass Index Calculated 46.93 kg/m2 Body Surface Area Calculated 2.36 m2 :23 Temperature 96.3 f Pulse 64 /min Comments: Pattern: Regular Respiration Rate 16 /min Comments: Pattern: Unlabored BP Systolic 136 mm[Hg] Comments: Patient Position: Sitting; Cuff Location: Left Arm; Cuff Size: Standard BP Diastolic 80 mm[Hg] Comments: Patient Position: Sitting; Cuff Location: Left Arm; Cuff Size: Standard Weight 293 lb :34 Temperature 96.8 f Pulse 60 /min Comments: Pattern: Regular Respiration Rate 18 /min Comments: Pattern: Unlabored BP Systolic 118 mm[Hg] Comments: Patient Position: Sitting; Cuff Location: Left Arm; Cuff Size: Large BP Diastolic 74 mm[Hg] Comments: Patient Position: Sitting; Cuff Location: Left Arm; Cuff Size: Large Weight 287 lb :24 Pulse 52 /min Comments: Pattern: Regular Respiration Rate 18 /min Comments: Pattern: Unlabored BP Systolic 122 mm[Hg] Comments: Patient Position: Sitting; Cuff Location: Left Arm; Cuff Size: Large BP Diastolic 68 mm[Hg] Comments: Patient Position: Sitting; Cuff Location: Left Arm; Cuff Size: Large Weight 282 lb :14 Temperature 97.4 f Comments: Method: Oral Pulse 60 /min Comments: Pattern: Regular Respiration Rate 16 /min Comments: Pattern: Unlabored BP Systolic 134 mm[Hg] Comments: Patient Position: Sitting; Cuff Location: Left Arm; Cuff Size: Standard BP Diastolic 72 mm[Hg] Comments: Patient Position: Sitting; Cuff Location: Left Arm; Cuff Size: Standard Weight 282 lb :47 Temperature 97.5 f Comments: Method: Oral Pulse 58 /min Comments: Pattern: Regular Respiration Rate 16 /min Comments: Pattern: Unlabored BP Systolic 134 mm[Hg] Comments: Patient Position: Sitting; Cuff Location: Left Arm; Cuff Size: Standard BP Diastolic 80 mm[Hg] Comments: Patient Position: Sitting; Cuff Location: Left Arm; Cuff Size: Standard Weight 282 lb :16 Temperature 96.9 f Pulse 60 /min Comments: Pattern: Regular Respiration Rate 18 /min Comments: Pattern: Unlabored BP Systolic 136 mm[Hg] Comments: Patient Position: Sitting; Cuff Location: Left Arm; Cuff Size: Standard BP Diastolic 74 mm[Hg] Comments: Patient Position: Sitting; Cuff Location: Left Arm; Cuff Size: Standard Weight 282 lb :10 Temperature 95.8 f Comments: Method: Undefined Pulse 52 /min Comments: Pattern: Regular Respiration Rate 16 /min Comments: Pattern: Undefined BP Systolic 102 mm[Hg] Comments: Patient Position: Sitting; Cuff Location: Right Arm; Cuff Size: Standard BP Diastolic 66 mm[Hg] Comments: Patient Position: Sitting; Cuff Location: Right Arm; Cuff Size: Standard Weight 285 lb Height 0 in Head Circumference 0.00 cm :07 Temperature 98.5 f Comments: Method: Oral Pulse 64 /min Comments: Pattern: Regular Respiration Rate 20 /min Comments: Pattern: Unlabored BP Systolic 122 mm[Hg] Comments: Patient Position: Sitting; Cuff Location: Left Arm; Cuff Size: Large BP Diastolic 70 mm[Hg] Comments: Patient Position: Sitting; Cuff Location: Left Arm; Cuff Size: Large Weight 290 lb Height 0 in Head Circumference 0.00 cm :50 Temperature 98 f Comments: Method: Undefined Pulse 48 /min Comments: Pattern: Regular Respiration Rate 18 /min Comments: Pattern: Undefined BP Systolic 114 mm[Hg] Comments: Patient Position: Sitting; Cuff Location: Left Arm; Cuff Size: Large BP Diastolic 56 mm[Hg] Comments: Patient Position: Sitting; Cuff Location: Left Arm; Cuff Size: Large Weight 290 lb Height 0 in Head Circumference 0.00 cm :33 Temperature 96.9 f Comments: Method: Undefined Pulse 56 /min Comments: Pattern: Regular Respiration Rate 18 /min Comments: Pattern: Undefined BP Systolic 120 mm[Hg] Comments: Patient Position: Sitting; Cuff Location: Left Arm; Cuff Size: Large BP Diastolic 64 mm[Hg] Comments: Patient Position: Sitting; Cuff Location: Left Arm; Cuff Size: Large Weight 288 lb Height 0 in Head Circumference 0.00 cm :01 Pulse 68 /min Comments: Pattern: Regular Respiration Rate 18 /min Comments: Pattern: Unlabored BP Systolic 122 mm[Hg] Comments: Patient Position: Sitting; Cuff Location: Left Arm; Cuff Size: Large BP Diastolic 78 mm[Hg] Comments: Patient Position: Sitting; Cuff Location: Left Arm; Cuff Size: Large Weight 0 lb Height 0 in Head Circumference 0.00 cm :52 Temperature 95 f Comments: Method: Undefined Pulse 80 /min Comments: Pattern: Regular Respiration Rate 18 /min Comments: Pattern: Undefined BP Systolic 112 mm[Hg] Comments: Patient Position: Sitting; Cuff Location: Left Arm; Cuff Size: Large BP Diastolic 70 mm[Hg] Comments: Patient Position: Sitting; Cuff Location: Left Arm; Cuff Size: Large Weight 289 lb Height 66.75 in Body Mass Index Calculated 45.6 kg/m2 Body Surface Area Calculated 2.36 m2 Head Circumference 0.00 cm :26 Pulse 68 /min Comments: Pattern: Regular Respiration Rate 20 /min Comments: Pattern: Unlabored BP Systolic 122 mm[Hg] Comments: Patient Position: Sitting; Cuff Location: Left Arm; Cuff Size: Large BP Diastolic 68 mm[Hg] Comments: Patient Position: Sitting; Cuff Location: Left Arm; Cuff Size: Large Weight 299 lb Height 0 in Head Circumference 0.00 cm :00 Pulse 60 /min Comments: Pattern: Regular Respiration Rate 18 /min Comments: Pattern: Unlabored BP Systolic 116 mm[Hg] Comments: Patient Position: Sitting; Cuff Location: Left Arm; Cuff Size: Large BP Diastolic 78 mm[Hg] Comments: Patient Position: Sitting; Cuff Location: Left Arm; Cuff Size: Large Weight 0 lb Height 0 in Head Circumference 0.00 cm :37 Pulse 56 /min Comments: Pattern: Regular Respiration Rate 16 /min Comments: Pattern: Unlabored BP Systolic 118 mm[Hg] Comments: Patient Position: Sitting; Cuff Location: Left Arm; Cuff Size: Large BP Diastolic 84 mm[Hg] Comments: Patient Position: Sitting; Cuff Location: Left Arm; Cuff Size: Large Weight 0 lb Height 0 in Head Circumference 0.00 cm :05 Pulse 52 /min Comments: Pattern: Regular Respiration Rate 16 /min Comments: Pattern: Unlabored BP Systolic 120 mm[Hg] Comments: Patient Position: Sitting; Cuff Location: Left Arm; Cuff Size: Standard BP Diastolic 70 mm[Hg] Comments: Patient Position: Sitting; Cuff Location: Left Arm; Cuff Size: Standard Weight 299 lb Height 0 in Head Circumference 0.00 cm :59 Pulse 64 /min Comments: Pattern: Regular Respiration Rate 18 /min Comments: Pattern: Unlabored BP Systolic 116 mm[Hg] Comments: Patient Position: Sitting; Cuff Location: Left Arm; Cuff Size: Large BP Diastolic 64 mm[Hg] Comments: Patient Position: Sitting; Cuff Location: Left Arm; Cuff Size: Large Weight 0 lb Height 0 in Head Circumference 0.00 cm :05 Pulse 58 /min Comments: Pattern: Regular Respiration Rate 18 /min Comments: Pattern: Unlabored BP Systolic 122 mm[Hg] Comments: Patient Position: Sitting; Cuff Location: Left Arm; Cuff Size: Standard BP Diastolic 68 mm[Hg] Comments: Patient Position: Sitting; Cuff Location: Left Arm; Cuff Size: Standard Weight 299 lb Height 0 in Head Circumference 0.00 cm :45 Temperature 96.1 f Comments: Method: Undefined Pulse 52 /min Comments: Pattern: Regular Respiration Rate 18 /min Comments: Pattern: Undefined BP Systolic 124 mm[Hg] Comments: Patient Position: Sitting; Cuff Location: Right Arm; Cuff Size: Large BP Diastolic 62 mm[Hg] Comments: Patient Position: Sitting; Cuff Location: Right Arm; Cuff Size: Large Weight 299 lb Height 0 in Head Circumference 0.00 cm :30 Pulse 60 /min Comments: Pattern: Regular Respiration Rate 18 /min Comments: Pattern: Unlabored BP Systolic 132 mm[Hg] Comments: Patient Position: Sitting; Cuff Location: Left Arm; Cuff Size: Large BP Diastolic 78 mm[Hg] Comments: Patient Position: Sitting; Cuff Location: Left Arm; Cuff Size: Large Weight 0 lb Height 0 in Head Circumference 0.00 cm :20 Pulse 64 /min Comments: Pattern: Regular Respiration Rate 18 /min Comments: Pattern: Unlabored BP Systolic 122 mm[Hg] Comments: Patient Position: Sitting; Cuff Location: Left Arm; Cuff Size: Large BP Diastolic 78 mm[Hg] Comments: Patient Position: Sitting; Cuff Location: Left Arm; Cuff Size: Large Weight 0 lb Height 0 in Head Circumference 0.00 cm :03 Temperature 97.8 f Comments: Method: Undefined Pulse 68 /min Comments: Pattern: Regular Respiration Rate 18 /min Comments: Pattern: Undefined BP Systolic 124 mm[Hg] Comments: Patient Position: Sitting; Cuff Location: Left Arm; Cuff Size: Large BP Diastolic 66 mm[Hg] Comments: Patient Position: Sitting; Cuff Location: Left Arm; Cuff Size: Large Weight 0 lb Height 0 in Head Circumference 0.00 cm :33 Pulse 64 /min Comments: Pattern: Regular Respiration Rate 18 /min Comments: Pattern: Unlabored BP Systolic 126 mm[Hg] Comments: Patient Position: Sitting; Cuff Location: Left Arm; Cuff Size: Large BP Diastolic 78 mm[Hg] Comments: Patient Position: Sitting; Cuff Location: Left Arm; Cuff Size: Large Weight 0 lb Height 0 in Head Circumference 0.00 cm :32 Temperature 97 f Comments: Method: Undefined Pulse 60 /min Comments: Pattern: Regular Respiration Rate 18 /min Comments: Pattern: Undefined BP Systolic 122 mm[Hg] Comments: Patient Position: Sitting; Cuff Location: Left Arm; Cuff Size: Large BP Diastolic 76 mm[Hg] Comments: Patient Position: Sitting; Cuff Location: Left Arm; Cuff Size: Large Weight 319 lb Height 0 in Head Circumference 0.00 cm :03 Pulse 60 /min Comments: Pattern: Regular Respiration Rate 16 /min Comments: Pattern: Unlabored BP Systolic 130 mm[Hg] Comments: Patient Position: Sitting; Cuff Location: Left Arm; Cuff Size: Large BP Diastolic 84 mm[Hg] Comments: Patient Position: Sitting; Cuff Location: Left Arm; Cuff Size: Large Weight 0 lb Height 0 in Head Circumference 0.00 cm :02 Temperature 97.7 f Comments: Method: Undefined Pulse 60 /min Comments: Pattern: Regular Respiration Rate 18 /min Comments: Pattern: Undefined BP Systolic 148 mm[Hg] Comments: Patient Position: Standing; Cuff Location: Right Arm; Cuff Size: Large BP Diastolic 94 mm[Hg] Comments: Patient Position: Standing; Cuff Location: Right Arm; Cuff Size: Large Weight 321 lb Height 67 in Body Mass Index Calculated 50.28 kg/m2 Body Surface Area Calculated 2.47 m2 Head Circumference 0.00 cm :12 Temperature 97.4 f Comments: Method: Undefined Pulse 68 /min Comments: Pattern: Regular Respiration Rate 18 /min Comments: Pattern: Undefined BP Systolic 138 mm[Hg] Comments: Patient Position: Sitting; Cuff Location: Left Arm; Cuff Size: Large BP Diastolic 74 mm[Hg] Comments: Patient Position: Sitting; Cuff Location: Left Arm; Cuff Size: Large Weight 324 lb Height 0 in Head Circumference 0.00 cm :27 Temperature 97.2 f Comments: Method: Oral Pulse 72 /min Comments: Pattern: Regular Respiration Rate 18 /min Comments: Pattern: Undefined BP Systolic 134 mm[Hg] Comments: Patient Position: Sitting; Cuff Location: Left Arm; Cuff Size: Standard BP Diastolic 80 mm[Hg] Comments: Patient Position: Sitting; Cuff Location: Left Arm; Cuff Size: Standard Weight 329 lb Height 0 in Head Circumference 0.00 cm :04 Pulse 66 /min Comments: Pattern: Regular Respiration Rate 16 /min Comments: Pattern: Unlabored BP Systolic 158 mm[Hg] Comments: Patient Position: Sitting; Cuff Location: Left Arm; Cuff Size: Large BP Diastolic 76 mm[Hg] Comments: Patient Position: Sitting; Cuff Location: Left Arm; Cuff Size: Large Weight 318.5625 lb Height 0 in Head Circumference 0.00 cm :22 Temperature 98.4 f Comments: Method: Oral Pulse 76 /min Comments: Pattern: Regular Respiration Rate 18 /min Comments: Pattern: Unlabored BP Systolic 122 mm[Hg] Comments: Patient Position: Sitting; Cuff Location: Left Arm; Cuff Size: Large BP Diastolic 68 mm[Hg] Comments: Patient Position: Sitting; Cuff Location: Left Arm; Cuff Size: Large Weight 313 lb Height 0 in Head Circumference 0.00 cm :10 Temperature 98.4 f Comments: Method: Oral Pulse 64 /min Comments: Pattern: Regular Respiration Rate 16 /min Comments: Pattern: Undefined BP Systolic 140 mm[Hg] Comments: Patient Position: Sitting; Cuff Location: Right Arm; Cuff Size: Large BP Diastolic 80 mm[Hg] Comments: Patient Position: Sitting; Cuff Location: Right Arm; Cuff Size: Large Weight 313 lb Height 0 in Head Circumference 0.00 cm :13 Temperature 98.4 f Comments: Method: Oral BP Systolic 148 mm[Hg] Comments: Patient Position: Sitting; Cuff Location: Left Arm; Cuff Size: Large BP Diastolic 76 mm[Hg] Comments: Patient Position: Sitting; Cuff Location: Left Arm; Cuff Size: Large Weight 309.25 lb Height 67 in Body Mass Index Calculated 48.43 kg/m2 Body Surface Area Calculated 2.43 m2 Head Circumference 0.00 cm :45 Temperature 97.6 f Comments: Method: Oral Pulse 70 /min Comments: Pattern: Regular Respiration Rate 18 /min Comments: Pattern: Undefined BP Systolic 120 mm[Hg] Comments: Patient Position: Sitting; Cuff Location: Undefined; Cuff Size: Undefined BP Diastolic 68 mm[Hg] Comments: Patient Position: Sitting; Cuff Location: Undefined; Cuff Size: Undefined Weight 293 lb Height 0 in Head Circumference 0.00 cm [id number] Temperature 97.6 f Comments: Method: Oral Pulse 72 /min Comments: Pattern: Regular Respiration Rate 20 /min Comments: Pattern: Unlabored BP Systolic 152 mm[Hg] Comments: Patient Position: Sitting; Cuff Location: Right Arm; Cuff Size: Large BP Diastolic 76 mm[Hg] Comments: Patient Position: Sitting; Cuff Location: Right Arm; Cuff Size: Large Weight 298 lb Height 66.75 in Body Mass Index Calculated 47.02 kg/m2 Body Surface Area Calculated 2.39 m2 Head Circumference 0.00 cm Results Date Description Value Details :34 HgA1C , Office (37000) HgA1C , Office 5.4 % (Normal) Range: 4.6 - 7.1 :34 Blood Glucose , Office (32698) Blood Glucose , Office 145 (Normal) [id number] Basic Metabolic Profile (BMP) Comments: [facility] [id number] [place], [address] GAP 8 (Normal) Range: 5-15 CO2 28.0 mmol/L (Normal) Range: 21.0-32.0 CL 105 mmol/L (Normal) Range: 98-107 K 4.4 mmol/L (Normal) Range: 3.5-5.1 NA 141 mmol/L (Normal) Range: 136-145 CA 9.6 mg/dL (Normal) Range: 8.5-10.1 BUN/CRE 19.4 {RATIO} (Normal) Range: 10-20 Estimated CRCL 27.01 ml/min (Normal) EST GFR - AA 36 mL/min (Abnormal) Comments: GFR Calc EST GFR 30 mL/min (Abnormal) Comments: Non- GFR Calc CREAT,SERUM 1.75 mg/dL (Abnormal) Range: 0.55-1.02 Comments: The validity of the calculated GFR AND GFRAA in patients over70 years has not been determined. Clinical correlation isessential. BUN 34 mg/dL (Abnormal) Range: 7-18 GLU 100 mg/dL (Normal) Range: 74-106 Comments: Fasting Glucose result from 100 to 125 mg/dLsuggests IMPAIRED HOMEOSTASIS per A.D.A. criteria.Please note revised GLUCOSE reference range ocybxynex08/02/2018. [id number] PTHIN 127.7 pg/mL (Abnormal) Comments: [facility] [id number] [place], [id number] Range: 18.4-80.1 [id number] Basic Metabolic Profile (BMP) Comments: [facility] [id number] [place], [id number] GAP 7 (Normal) Range: 5-15 CO2 25.0 mmol/L (Normal) Range: 21.0-32.0 CL 108 mmol/L (Abnormal) Range: 98-107 K 4.8 mmol/L (Normal) Range: 3.5-5.1 NA 140 mmol/L (Normal) Range: 136-145 CA 9.2 mg/dL (Normal) Range: 8.5-10.1 BUN/CRE 18.7 {RATIO} (Normal) Range: 10-20 Estimated CRCL 18.68 ml/min (Normal) EST GFR - AA 23 mL/min (Abnormal) Comments: GFR Calc EST GFR 19 mL/min (Abnormal) Comments: Non- GFR Calc CREAT,SERUM 2.57 mg/dL (Abnormal) Range: 0.55-1.02 Comments: The validity of the calculated GFR AND GFRAA in patients over70 years has not been determined. Clinical correlation isessential. BUN 48 mg/dL (Abnormal) Range: 7-18 GLU 115 mg/dL (Abnormal) Range: 74-106 Comments: Fasting Glucose result from 100 to 125 mg/dLsuggests IMPAIRED HOMEOSTASIS per A.D.A. criteria.Please note revised GLUCOSE reference range ontkcfsfb79/02/2018. [id number] Renal Profile Comments: [facility] [id number] [place], [id number] CO2 25.0 mmol/L (Normal) Range: 21.0-32.0 CL 108 mmol/L (Abnormal) Range: 98-107 K 4.8 mmol/L (Normal) Range: 3.5-5.1 NA 141 mmol/L (Normal) Range: 136-145 PHOS 3.3 mg/dL (Normal) Range: 2.5-4.9 CA 9.3 mg/dL (Normal) Range: 8.5-10.1 ALB 3.9 g/dL (Normal) Range: 3.2-5.0 BUN/CRE 18.9 {RATIO} (Normal) Range: 10-20 Estimated CRCL 18.90 ml/min (Normal) EST GFR - AA 24 mL/min (Abnormal) Comments: GFR Calc EST GFR 20 mL/min (Abnormal) Comments: Non- GFR Calc CREAT,SERUM 2.54 mg/dL (Abnormal) Range: 0.55-1.02 Comments: The validity of the calculated GFR AND GFRAA in patients over70 years has not been determined. Clinical correlation isessential. BUN 48 mg/dL (Abnormal) Range: 7-18 GLU 116 mg/dL (Abnormal) Range: 74-106 Comments: Fasting Glucose result from 100 to 125 mg/dLsuggests IMPAIRED HOMEOSTASIS per A.D.A. criteria.Please note revised GLUCOSE reference range ydkffdcjt95/02/2018. [id number] CBC W/Diff, Automated Comments: Reason for Laboratory Test .[facility] [id number] [place], [address] Absolute Lymph 0.69 {X10_3/ul} (Abnormal) Range: 0.83-4.51 Absolute Neut 3.5 {X10_3/uL} (Normal) Range: 2.0-7.7 IM GRAN % 0.000 % (Normal) Range: 0.0-0.9 Comments: IG% - Immature Granulocytes (promyelocytes, myelocytes andmetamyelocytes) > 1% indicates that a LEFT SHIFT is Present. BASO% 0.4 % (Normal) Range: 0-1 EO% 2.2 % (Normal) Range: 0-5 MONO% 6.1 % (Normal) Range: 0-10 LY% 15.0 % (Abnormal) Range: 19-41 NEUT% 76.3 % (Abnormal) Range: 47-70 MPV 12.4 fL (Abnormal) Range: 6.2-12.0 PLT 135 K/mm3 (Abnormal) Range: 150-450 RDW SD 54.4 fL (Abnormal) Range: 35.1-43.9 RDW CV 15.8 % (Abnormal) Range: 11.6-14.6 MCHC 30.1 {g/gl} (Abnormal) Range: 32-36 MCH 28.5 pg (Normal) Range: 27.0-32.0 MCV 94.7 fL (Normal) Range: 81-99 HCT 32.2 % (Abnormal) Range: 37-47 HGB 9.7 g/dL (Abnormal) Range: 12.0-15.0 RBC 3.40 {M/mm3} (Abnormal) Range: 4.2-5.4 WBC 4.6 K/mm3 (Normal) Range: 4.4-11.0 [id number] Ferritin Comments: Reason for Laboratory Test .[facility] [id number] [place], [place], [id number] FERRITIN 55 ng/mL (Normal) Range: 8-252 [id number] Iron+Iron Binding Capacity Comments: Reason for Laboratory Test .[facility] [id number] [place], [address] IRON SATURATION 13.4 % (Abnormal) Range: 15.0-55.0 IRON 47 ug/dL (Abnormal) Range: 50-170 TIBC 350 ug/dL (Normal) Range: 250-450 [id number] Partial Thromboplast Time Comments: [place] [address] [place], [address] PTT 44.5 s (Abnormal) Range: 24.1-36.2 [id number] Prothrombin Time w/INR Comments: [place] [address] [place], [address] INR 1.2 (Normal) PROTIME 15.0 s (Abnormal) Range: 11.7-14.9 [id number] Renal Profile Comments: [place] [address] [place], [address] CO2 24.0 mmol/L (Normal) Range: 21.0-32.0 CL 107 mmol/L (Normal) Range: 98-107 K 4.7 mmol/L (Normal) Range: 3.5-5.1 NA 141 mmol/L (Normal) Range: 136-145 PHOS 4.3 mg/dL (Normal) Range: 2.5-4.9 CA 9.4 mg/dL (Normal) Range: 8.5-10.1 ALB 3.8 g/dL (Normal) Range: 3.2-5.0 BUN/CRE 20.6 {RATIO} (Abnormal) Range: 10-20 Estimated CRCL 21.05 ml/min (Normal) EST GFR - AA 27 mL/min (Abnormal) Comments: GFR Calc EST GFR 22 mL/min (Abnormal) Comments: Non- GFR Calc CREAT,SERUM 2.28 mg/dL (Abnormal) Range: 0.55-1.02 Comments: The validity of the calculated GFR AND GFRAA in patients over70 years has not been determined. Clinical correlation isessential. BUN 47 mg/dL (Abnormal) Range: 7-18 GLU 111 mg/dL (Abnormal) Range: 74-106 Comments: Fasting Glucose result from 100 to 125 mg/dLsuggests IMPAIRED HOMEOSTASIS per A.D.A. criteria.Please note revised GLUCOSE reference range aljaxrftg49/02/2018. [id number] CBC W/Diff, Automated Comments: Reason for Laboratory Test .[facility] [id number] [place], [place], [id number] Absolute Lymph 0.91 {X10_3/ul} (Normal) Range: 0.83-4.51 Absolute Neut 3.0 {X10_3/uL} (Normal) Range: 2.0-7.7 IM GRAN % 0.000 % (Normal) Range: 0.0-0.9 Comments: IG% - Immature Granulocytes (promyelocytes, myelocytes andmetamyelocytes) > 1% indicates that a LEFT SHIFT is Present. BASO% 0.5 % (Normal) Range: 0-1 EO% 1.9 % (Normal) Range: 0-5 MONO% 5.0 % (Normal) Range: 0-10 LY% 21.5 % (Normal) Range: 19-41 NEUT% 71.1 % (Abnormal) Range: 47-70 MPV 11.7 fL (Normal) Range: 6.2-12.0 PLT 145 K/mm3 (Abnormal) Range: 150-450 RDW SD 53.7 fL (Abnormal) Range: 35.1-43.9 RDW CV 15.5 % (Abnormal) Range: 11.6-14.6 MCHC 31.3 {g/gl} (Abnormal) Range: 32-36 MCH 29.8 pg (Normal) Range: 27.0-32.0 MCV 95.2 fL (Normal) Range: 81-99 HCT 29.7 % (Abnormal) Range: 37-47 HGB 9.3 g/dL (Abnormal) Range: 12.0-15.0 RBC 3.12 {M/mm3} (Abnormal) Range: 4.2-5.4 WBC 4.2 K/mm3 (Abnormal) Range: 4.4-11.0 0-Vwr-407698:15 Ferritin Comments: Reason for Laboratory Test .[facility] [address] [place], [place], [id number] FERRITIN 44 ng/mL (Normal) Range: 8-252 5-Viq-228815:15 Iron+Iron Binding Capacity Comments: Reason for Laboratory Test .[facility] [address] [place], [place], [phone] IRON SATURATION 11.8 % (Abnormal) Range: 15.0-55.0 IRON 42 ug/dL (Abnormal) Range: 50-170 TIBC 355 ug/dL (Normal) Range: 250-450 06-Dbe-302263:22 CBC W/Diff, Automated Comments: Reason for Laboratory Test DRAW BLOODBANK TUBE [facility] [address] [place], [place], [address] Absolute Lymph 0.76 {X10_3/ul} (Abnormal) Range: 0.83-4.51 Absolute Neut 4.5 {X10_3/uL} (Normal) Range: 2.0-7.7 IM GRAN % 0.000 % (Normal) Range: 0.0-0.9 Comments: IG% - Immature Granulocytes (promyelocytes, myelocytes andmetamyelocytes) > 1% indicates that a LEFT SHIFT is Present. BASO% 0.4 % (Normal) Range: 0-1 EO% 1.9 % (Normal) Range: 0-5 MONO% 5.7 % (Normal) Range: 0-10 LY% 13.4 % (Abnormal) Range: 19-41 NEUT% 78.6 % (Abnormal) Range: 47-70 MPV 10.9 fL (Normal) Range: 6.2-12.0 PLT 213 K/mm3 (Normal) Range: 150-450 RDW SD 60.8 fL (Abnormal) Range: 35.1-43.9 RDW CV 16.8 % (Abnormal) Range: 11.6-14.6 MCHC 29.4 {g/gl} (Abnormal) Range: 32-36 MCH 29.3 pg (Normal) Range: 27.0-32.0 MCV 99.4 fL (Abnormal) Range: 81-99 HCT 30.9 % (Abnormal) Range: 37-47 HGB 9.1 g/dL (Abnormal) Range: 12.0-15.0 RBC 3.11 {M/mm3} (Abnormal) Range: 4.2-5.4 WBC 5.7 K/mm3 (Normal) Range: 4.4-11.0 1-Pem-094471:39 Renal Profile Comments: [facility] [address] [place], [place], [address] CO2 24.0 mmol/L (Normal) Range: 21.0-32.0 CL 109 mmol/L (Abnormal) Range: 98-107 K 4.3 mmol/L (Normal) Range: 3.5-5.1 NA 144 mmol/L (Normal) Range: 136-145 PHOS 3.1 mg/dL (Normal) Range: 2.5-4.9 CA 9.2 mg/dL (Normal) Range: 8.5-10.1 ALB 3.8 g/dL (Normal) Range: 3.2-5.0 BUN/CRE 14.5 {RATIO} (Normal) Range: 10-20 Estimated CRCL 28.91 ml/min (Normal) EST GFR - AA 39 mL/min (Abnormal) Comments: GFR Calc EST GFR 32 mL/min (Abnormal) Comments: Non- GFR Calc CREAT,SERUM 1.66 mg/dL (Abnormal) Range: 0.55-1.02 Comments: The validity of the calculated GFR AND GFRAA in patients over70 years has not been determined. Clinical correlation isessential. BUN 24 mg/dL (Abnormal) Range: 7-18 GLU 117 mg/dL (Abnormal) Range: 74-106 Comments: Fasting Glucose result from 100 to 125 mg/dLsuggests IMPAIRED HOMEOSTASIS per A.D.A. criteria.Please note revised GLUCOSE reference range asdqmfxda60/02/2018. 8-Grq-445778:04 CBC W/Diff, Automated Comments: Reason for Laboratory Test .[facility] [address] [place], [place], [address] Absolute Lymph 0.85 {X10_3/ul} (Normal) Range: 0.83-4.51 Absolute Neut 4.1 {X10_3/uL} (Normal) Range: 2.0-7.7 IM GRAN % 0.000 % (Normal) Range: 0.0-0.9 Comments: IG% - Immature Granulocytes (promyelocytes, myelocytes andmetamyelocytes) > 1% indicates that a LEFT SHIFT is Present. BASO% 0.6 % (Normal) Range: 0-1 EO% 2.2 % (Normal) Range: 0-5 MONO% 4.3 % (Normal) Range: 0-10 LY% 15.8 % (Abnormal) Range: 19-41 NEUT% 77.1 % (Abnormal) Range: 47-70 MPV 10.9 fL (Normal) Range: 6.2-12.0 PLT 224 K/mm3 (Normal) Range: 150-450 RDW SD 62.2 fL (Abnormal) Range: 35.1-43.9 RDW CV 17.1 % (Abnormal) Range: 11.6-14.6 MCHC 29.0 {g/gl} (Abnormal) Range: 32-36 MCH 28.9 pg (Normal) Range: 27.0-32.0 MCV 99.7 fL (Abnormal) Range: 81-99 HCT 30.3 % (Abnormal) Range: 37-47 HGB 8.8 g/dL (Abnormal) Range: 12.0-15.0 RBC 3.04 {M/mm3} (Abnormal) Range: 4.2-5.4 WBC 5.4 K/mm3 (Normal) Range: 4.4-11.0 4-Vdb-777385:04 Ferritin Comments: Reason for Laboratory Test .[facility] [address] [place], [place], [id number] FERRITIN 135 ng/mL (Normal) Range: 8-252 9-Igz-947272:04 Iron+Iron Binding Capacity Comments: Reason for Laboratory Test .[facility] [address] [place], [place], [address] IRON SATURATION 31.9 % (Normal) Range: 15.0-55.0 IRON 117 ug/dL (Normal) Range: 50-170 TIBC 367 ug/dL (Normal) Range: 250-450 53-Bvr-975490:26 CBC W/Diff, Automated Comments: [facility] [address] [place], [place], [address] Absolute Lymph 0.86 {X10_3/ul} (Normal) Range: 0.83-4.51 Absolute Neut 4.6 {X10_3/uL} (Normal) Range: 2.0-7.7 IM GRAN % 0.000 % (Normal) Range: 0.0-0.9 Comments: IG% - Immature Granulocytes (promyelocytes, myelocytes andmetamyelocytes) > 1% indicates that a LEFT SHIFT is Present. BASO% 0.3 % (Normal) Range: 0-1 EO% 1.9 % (Normal) Range: 0-5 MONO% 4.1 % (Normal) Range: 0-10 LY% 14.7 % (Abnormal) Range: 19-41 NEUT% 79.0 % (Abnormal) Range: 47-70 MPV 11.0 fL (Normal) Range: 6.2-12.0 PLT 224 K/mm3 (Normal) Range: 150-450 RDW SD 58.8 fL (Abnormal) Range: 35.1-43.9 RDW CV 16.5 % (Abnormal) Range: 11.6-14.6 MCHC 29.7 {g/gl} (Abnormal) Range: 32-36 MCH 29.3 pg (Normal) Range: 27.0-32.0 MCV 98.6 fL (Normal) Range: 81-99 HCT 27.6 % (Abnormal) Range: 37-47 HGB 8.2 g/dL (Abnormal) Range: 12.0-15.0 RBC 2.80 {M/mm3} (Abnormal) Range: 4.2-5.4 WBC 5.8 K/mm3 (Normal) Range: 4.4-11.0 00-Zln-925362:26 Comprehensive Metabolic Profil Comments: [facility] [address] [place], [place], [id number] GAP 7 (Normal) Range: 5-15 CO2 27.0 mmol/L (Normal) Range: 21.0-32.0 CL 110 mmol/L (Abnormal) Range: 98-107 K 4.6 mmol/L (Normal) Range: 3.5-5.1 NA 144 mmol/L (Normal) Range: 136-145 T BILI 0.40 mg/dL (Normal) Range: 0.20-1.00 ALT 18 U/L (Normal) Range: 13-56 ALK P 77 U/L (Normal) Range: 45-117 AST 13 U/L (Abnormal) Range: 15-37 CA 9.2 mg/dL (Normal) Range: 8.5-10.1 A/G 0.8 {RATIO} (Abnormal) Range: 0.9-2.4 GLOB 3.8 g/dL (Normal) Range: 2.2-4.2 ALB 3.1 g/dL (Abnormal) Range: 3.2-5.0 T PROT 6.9 g/dL (Normal) Range: 6.4-8.2 BUN/CRE 16.1 {RATIO} (Normal) Range: 10-20 Estimated CRCL 24.12 ml/min (Normal) EST GFR - AA 31 mL/min (Abnormal) Comments: GFR Calc EST GFR 26 mL/min (Abnormal) Comments: Non- GFR Calc CREAT,SERUM 1.99 mg/dL (Abnormal) Range: 0.55-1.02 Comments: The validity of the calculated GFR AND GFRAA in patients over70 years has not been determined. Clinical correlation isessential. BUN 32 mg/dL (Abnormal) Range: 7-18 GLU 118 mg/dL (Abnormal) Range: 74-106 Comments: Fasting Glucose result from 100 to 125 mg/dLsuggests IMPAIRED HOMEOSTASIS per A.D.A. criteria.Please note revised GLUCOSE reference range lxzjupcxz73/02/2018. 02-Zek-968395:36 Ferritin Comments: Reason for Laboratory Test .[facility] [address] [place], [place], [address] FERRITIN 54 ng/mL (Normal) Range: 8-252 92-Nqt-380632:36 Iron+Iron Binding Capacity Comments: Reason for Laboratory Test .[facility] [address] [place], [place], [address] IRON SATURATION 12.7 % (Abnormal) Range: 15.0-55.0 IRON 42 ug/dL (Abnormal) Range: 50-170 TIBC 331 ug/dL (Normal) Range: 250-450 40-Eow-030641:21 CBC-Complete Blood Cnt No Diff Comments: [facility] [address] [place], [place], [address] MPV 10.8 fL (Normal) Range: 6.2-12.0 PLT 268 K/mm3 (Normal) Range: 150-450 RDW SD 57.5 fL (Abnormal) Range: 35.1-43.9 RDW CV 16.5 % (Abnormal) Range: 11.6-14.6 MCHC 29.6 {g/gl} (Abnormal) Range: 32-36 MCH 28.9 pg (Normal) Range: 27.0-32.0 MCV 97.6 fL (Normal) Range: 81-99 HCT 28.7 % (Abnormal) Range: 37-47 HGB 8.5 g/dL (Abnormal) Range: 12.0-15.0 RBC 2.94 {M/mm3} (Abnormal) Range: 4.2-5.4 WBC 6.2 K/mm3 (Normal) Range: 4.4-11.0 4-Jtq-174046:15 CBC W/Diff, Automated Comments: [address] [place], [place], [address] Absolute Lymph 0.79 {X10_3/ul} (Abnormal) Range: 0.83-4.51 Absolute Neut 5.7 {X10_3/uL} (Normal) Range: 2.0-7.7 IM GRAN % 0.000 % (Normal) Range: 0.0-0.9 Comments: IG% - Immature Granulocytes (promyelocytes, myelocytes andmetamyelocytes) > 1% indicates that a LEFT SHIFT is Present. BASO% 0.3 % (Normal) Range: 0-1 EO% 1.6 % (Normal) Range: 0-5 MONO% 5.3 % (Normal) Range: 0-10 LY% 11.3 % (Abnormal) Range: 19-41 NEUT% 81.5 % (Abnormal) Range: 47-70 MPV 11.4 fL (Normal) Range: 6.2-12.0 PLT 189 K/mm3 (Normal) Range: 150-450 RDW SD 59.9 fL (Abnormal) Range: 35.1-43.9 RDW CV 16.9 % (Abnormal) Range: 11.6-14.6 MCHC 30.0 {g/gl} (Abnormal) Range: 32-36 MCH 29.2 pg (Normal) Range: 27.0-32.0 MCV 97.3 fL (Normal) Range: 81-99 HCT 21.3 % (Abnormal) Range: 37-47 HGB 6.4 g/dL (Abnormal) Range: 12.0-15.0 RBC 2.19 {M/mm3} (Abnormal) Range: 4.2-5.4 WBC 7.0 K/mm3 (Normal) Range: 4.4-11.0 9-Qax-985170:15 Comprehensive Metabolic Profil Comments: [facility] [address] [place], [place], [id number] GAP 8 (Normal) Range: 5-15 CO2 21.0 mmol/L (Normal) Range: 21.0-32.0 CL 115 mmol/L (Abnormal) Range: 98-107 K 4.9 mmol/L (Normal) Range: 3.5-5.1 NA 144 mmol/L (Normal) Range: 136-145 T BILI 0.40 mg/dL (Normal) Range: 0.20-1.00 ALT 15 U/L (Normal) Range: 13-56 ALK P 63 U/L (Normal) Range: 45-117 AST 9 U/L (Abnormal) Range: 15-37 CA 8.3 mg/dL (Abnormal) Range: 8.5-10.1 A/G 0.9 {RATIO} (Normal) Range: 0.9-2.4 GLOB 3.4 g/dL (Normal) Range: 2.2-4.2 ALB 3.1 g/dL (Abnormal) Range: 3.2-5.0 T PROT 6.5 g/dL (Normal) Range: 6.4-8.2 BUN/CRE 26.8 {RATIO} (Abnormal) Range: 10-20 Estimated CRCL 19.51 ml/min (Normal) EST GFR - AA 25 mL/min (Abnormal) Comments: GFR Calc EST GFR 20 mL/min (Abnormal) Comments: Non- GFR Calc CREAT,SERUM 2.46 mg/dL (Abnormal) Range: 0.55-1.02 Comments: The validity of the calculated GFR AND GFRAA in patients over70 years has not been determined. Clinical correlation isessential. BUN 66 mg/dL (Abnormal) Range: 7-18 GLU 131 mg/dL (Abnormal) Range: 74-106 Comments: Fasting Glucose result greater than or equal to 126 mg/dLsuggests DIABETES MELLITUS per A.D.A. criteria.Please note revised GLUCOSE reference range yxfhnmaoq11/02/2018. 4-Csp-782567:15 Lactic Acid Comments: Yes/No query for Sepsis Lactate [facility] [address] [place], [place], [address] LACTIC ACID 2.1 mmol/L (Abnormal) Range: 0.4-2.0 Comments: Critical Result(s) Called at: 10:59:09 02/23/2018 by: Juve House RN 7-Uqg-368763:15 Partial Thromboplast Time Comments: [address] [place], [address] PTT 36.8 s (Abnormal) Range: 24.1-36.2 5-Rjm-501919:15 Prothrombin Time w/INR Comments: [address] [place], [place], [address] INR 1.2 (Normal) PROTIME 15.2 s (Abnormal) Range: 11.7-14.9 0-Jpg-799556:15 Troponin-I Comments: [address] [place], [place], [address] TROPONIN-I < 0.015 ng/mL (Normal) Comments: TROPONIN-I EXPECTED VALUES <0.045 Negative 0.045 - 0.590 Consistent with Cardiac Damage > OR = 0.600 Critical Value Not every elevated troponin is indicative of NH. T hesevalues should be used with clinical judgement in examiningthe patient's clinical picture for diagnosis. To establisha diagnosis of NH versus myocardial injury, there must be ademonstrated rise and/ or fall in the troponin values, inaddition to ischemic symptoms, EKG changes, new regionalwall motion abnormality, and/or angiographical evidence. PLEASE NOTE: REFERENCE RANGES EDITED 12/30/1717-Feb-20184-Kzb-373341:10 CBC W/Diff, Automated Comments: CMP, CBCD, PT FOR DR BOOKER ARE [facility] [address] [place], [place], [address] Absolute Lymph 0.84 {X10_3/ul} (Normal) Range: 0.83-4.51 Absolute Neut 5.3 {X10_3/uL} (Normal) Range: 2.0-7.7 IM GRAN % 0.200 % (Normal) Range: 0.0-0.9 Comments: IG% - Immature Granulocytes (promyelocytes, myelocytes andmetamyelocytes) > 1% indicates that a LEFT SHIFT is Present. BASO% 0.5 % (Normal) Range: 0-1 EO% 2.1 % (Normal) Range: 0-5 MONO% 4.1 % (Normal) Range: 0-10 LY% 12.7 % (Abnormal) Range: 19-41 NEUT% 80.4 % (Abnormal) Range: 47-70 MPV 12.3 fL (Abnormal) Range: 6.2-12.0 PLT 181 K/mm3 (Normal) Range: 150-450 RDW SD 55.5 fL (Abnormal) Range: 35.1-43.9 RDW CV 16.5 % (Abnormal) Range: 11.6-14.6 MCHC 30.4 {g/gl} (Abnormal) Range: 32-36 MCH 29.8 pg (Normal) Range: 27.0-32.0 MCV 98.2 fL (Normal) Range: 81-99 HCT 28.0 % (Abnormal) Range: 37-47 HGB 8.5 g/dL (Abnormal) Range: 12.0-15.0 RBC 2.85 {M/mm3} (Abnormal) Range: 4.2-5.4 WBC 6.6 K/mm3 (Normal) Range: 4.4-11.0 7-Nor-787861:10 Comprehensive Metabolic Profil Comments: CMP, CBCD, PT FOR DR BOOKER ARE FOR DR Sanchesluis [facility] [address] [place], [address] GAP 8 (Normal) Range: 5-15 CO2 25.0 mmol/L (Normal) Range: 21.0-32.0 CL 111 mmol/L (Abnormal) Range: 98-107 K 4.6 mmol/L (Normal) Range: 3.5-5.1 NA 144 mmol/L (Normal) Range: 136-145 T BILI 0.30 mg/dL (Normal) Range: 0.20-1.00 ALT 24 U/L (Normal) Range: 13-56 ALK P 67 U/L (Normal) Range: 45-117 AST 19 U/L (Normal) Range: 15-37 CA 8.9 mg/dL (Normal) Range: 8.5-10.1 A/G 0.9 {RATIO} (Normal) Range: 0.9-2.4 GLOB 3.6 g/dL (Normal) Range: 2.2-4.2 ALB 3.3 g/dL (Normal) Range: 3.2-5.0 T PROT 6.9 g/dL (Normal) Range: 6.4-8.2 BUN/CRE 23.4 {RATIO} (Abnormal) Range: 10-20 Estimated CRCL 20.08 ml/min (Normal) EST GFR - AA 25 mL/min (Abnormal) Comments: GFR Calc EST GFR 21 mL/min (Abnormal) Comments: Non- GFR Calc CREAT,SERUM 2.39 mg/dL (Abnormal) Range: 0.55-1.02 Comments: The validity of the calculated GFR AND GFRAA in patients over70 years has not been determined. Clinical correlation isessential. BUN 56 mg/dL (Abnormal) Range: 7-18 GLU 124 mg/dL (Abnormal) Range: 74-106 Comments: Fasting Glucose result from 100 to 125 mg/dLsuggests IMPAIRED HOMEOSTASIS per A.D.A. criteria.Please note revised GLUCOSE reference range nkixooqnr86/02/2018. 2-Anq-099395:10 Ferritin Comments: CMP, CBCD, PT FOR DR BOOKER [facility] [address] [place], [address] FERRITIN 60 ng/mL (Normal) Range: 8-252 4-Fhf-151418:10 Iron+Iron Binding Capacity Comments: CMP, CBCD, PT FOR DR BOOKER ARE FOR [facility]ALSILVIOOhio[facility] [address] [place], [address] IRON SATURATION 13.0 % (Abnormal) Range: 15.0-55.0 IRON 44 ug/dL (Abnormal) Range: 50-170 TIBC 339 ug/dL (Normal) Range: 250-450 2-Lil-991608:10 Prothrombin Time w/INR Comments: CMP, CBCD, PT FOR DR BOOKER ARE FOR [facility]ALSILVIOOhio[facility] [address] [place], [address] INR 1.2 (Normal) PROTIME 15.3 s (Abnormal) Range: 11.7-14.9 44-Spm-086008:25 Basic Metabolic Profile (BMP) Comments: [facility] [address] [place], [address] GAP 9 (Normal) Range: 5-15 CO2 22.0 mmol/L (Normal) Range: 21.0-32.0 CL 109 mmol/L (Abnormal) Range: 98-107 K 5.5 mmol/L (Abnormal) Range: 3.5-5.1 NA 140 mmol/L (Normal) Range: 136-145 CA 8.7 mg/dL (Normal) Range: 8.5-10.1 BUN/CRE 31.5 {RATIO} (Abnormal) Range: 10-20 Estimated CRCL 14.54 ml/min (Normal) EST GFR - AA 18 mL/min (Abnormal) Comments: GFR Calc EST GFR 15 mL/min (Abnormal) Comments: Non- GFR Calc CREAT,SERUM 3.30 mg/dL (Abnormal) Range: 0.55-1.02 Comments: The validity of the calculated GFR AND GFRAA in patients over70 years has not been determined. Clinical correlation isessential. BUN 104 mg/dL (Abnormal) Range: 7-18 Comments: Critical Result(s) Called at: 12:09:22 02/04/2018 by:Michelle Alejandre RN (ER). GLU 136 mg/dL (Abnormal) Range: 74-106 Comments: Fasting Glucose result greater than or equal to 126 mg/dLsuggests DIABETES MELLITUS per A.D.A. criteria.Please note revised GLUCOSE reference range tviycefal19/02/2018. 74-Xee-078303:25 CBC W/Diff, Automated Comments: [facility] [address] [place], [address] PATH REV Reviewed (Normal) Comments: Severe Macrocytic anemia.Clinical correlation necessary.Sha Hogue M.D. 02/05/18 AMENDED REPORT 02/05/18 0951 PATH REV previously reported as: May foll HYPOCHROMASIA 2+ (Normal) PLT MORPH LARGE (Normal) PLT EST ADEQUATE (Normal) Absolute Lymph 1.03 {X10_3/ul} (Normal) Range: 0.83-4.51 Absolute Neut 6.1 {X10_3/uL} (Normal) Range: 2.0-7.7 IM GRAN % 0.100 % (Normal) Range: 0.0-0.9 Comments: IG% - Immature Granulocytes (promyelocytes, myelocytes andmetamyelocytes) > 1% indicates that a LEFT SHIFT is Present. BASO% 0.4 % (Normal) Range: 0-1 EO% 0.7 % (Normal) Range: 0-5 MONO% 3.3 % (Normal) Range: 0-10 LY% 13.8 % (Abnormal) Range: 19-41 NEUT% 81.7 % (Abnormal) Range: 47-70 MPV 12.1 fL (Abnormal) Range: 6.2-12.0 PLT 227 K/mm3 (Normal) Range: 150-450 RDW SD 54.4 fL (Abnormal) Range: 35.1-43.9 RDW CV 15.8 % (Abnormal) Range: 11.6-14.6 MCHC 30.3 {g/gl} (Abnormal) Range: 32-36 MCH 30.6 pg (Normal) Range: 27.0-32.0 MCV 101.1 fL (Abnormal) Range: 81-99 HCT 18.8 % (Abnormal) Range: 37-47 HGB 5.7 g/dL (Abnormal) Range: 12.0-15.0 Comments: CRITICAL VALUE VERIFIED. CALLED TO LELE SIN02/04/18 1148 Billie Hays.RESULTS READ BACK BY SAME . RBC 1.86 {M/mm3} (Abnormal) Range: 4.2-5.4 WBC 7.5 K/mm3 (Normal) Range: 4.4-11.0 70-Aev-255763:25 Prothrombin Time w/INR Comments: [facility] [address] [place], [place], [id number] INR 3.7 (Abnormal) Comments: CRITICAL VALUE VERIFIED. CALLED TO LELE DILL02/04/18 1150 Billie Hays.RESULTS READ BACK BY SAME . PROTIME 37.0 s (Abnormal) Range: 11.7-14.9 34-Oum-516360:26 Basic Metabolic Profile (BMP) Comments: Send Results To: Gerry Swartz for Laboratory Test CKD, hypokalemiaWDetwiler Memorial Hospital [address] [place], [place], [address] GAP 8 (Normal) Range: 5-15 CO2 28.0 mmol/L (Normal) Range: 21.0-32.0 CL 105 mmol/L (Normal) Range: 98-107 K 4.6 mmol/L (Normal) Range: 3.5-5.1 NA 141 mmol/L (Normal) Range: 136-145 CA 9.5 mg/dL (Normal) Range: 8.5-10.1 BUN/CRE 14.6 {RATIO} (Normal) Range: 10-20 Estimated CRCL 17.98 ml/min (Normal) EST GFR - AA 22 mL/min (Abnormal) Comments: GFR Calc EST GFR 19 mL/min (Abnormal) Comments: Non- GFR Calc CREAT,SERUM 2.67 mg/dL (Abnormal) Range: 0.55-1.02 Comments: The validity of the calculated GFR AND GFRAA in patients over70 years has not been determined. Clinical correlation isessential. BUN 39 mg/dL (Abnormal) Range: 7-18 GLU 163 mg/dL (Abnormal) Range: 74-106 Comments: Fasting Glucose result greater than or equal to 126 mg/dLsuggests DIABETES MELLITUS per A.D.A. criteria.Please note revised GLUCOSE reference range ymyqquagr44/02/2018. 71-Usf-123120:25 CBC W/Diff, Automated Comments: Reason for Laboratory Test .[facility] [address] [place], [place], [address] Absolute Lymph 1.02 {X10_3/ul} (Normal) Range: 0.83-4.51 Absolute Neut 5.0 {X10_3/uL} (Normal) Range: 2.0-7.7 IM GRAN % 0.200 % (Normal) Range: 0.0-0.9 Comments: IG% - Immature Granulocytes (promyelocytes, myelocytes andmetamyelocytes) > 1% indicates that a LEFT SHIFT is Present. BASO% 0.5 % (Normal) Range: 0-1 EO% 1.9 % (Normal) Range: 0-5 MONO% 3.6 % (Normal) Range: 0-10 LY% 16.0 % (Abnormal) Range: 19-41 NEUT% 77.8 % (Abnormal) Range: 47-70 MPV 10.9 fL (Normal) Range: 6.2-12.0 PLT 302 K/mm3 (Normal) Range: 150-450 RDW SD 57.8 fL (Abnormal) Range: 35.1-43.9 RDW CV 15.8 % (Abnormal) Range: 11.6-14.6 MCHC 29.3 {g/gl} (Abnormal) Range: 32-36 MCH 29.0 pg (Normal) Range: 27.0-32.0 MCV 99.1 fL (Abnormal) Range: 81-99 HCT 32.8 % (Abnormal) Range: 37-47 HGB 9.6 g/dL (Abnormal) Range: 12.0-15.0 RBC 3.31 {M/mm3} (Abnormal) Range: 4.2-5.4 WBC 6.4 K/mm3 (Normal) Range: 4.4-11.0 :25 Ferritin Comments: Reason for Laboratory Test .[facility] [address] [place], [place], [address] FERRITIN 109 ng/mL (Normal) Range: 8-252 07-Xvr-110998:25 Iron+Iron Binding Capacity Comments: Reason for Laboratory Test .[facility] [address] [place], [address] IRON SATURATION 26.7 % (Normal) Range: 15.0-55.0 IRON 92 ug/dL (Normal) Range: 50-170 TIBC 345 ug/dL (Normal) Range: 250-450 7-Udp-652097:19 HgA1C , Office (90126) HgA1C , Office 5.1 % (Normal) Range: 4.6 - 7.1 6-Djq-578046:18 Blood Glucose , Office (66611) Blood Glucose , Office 124 (Normal) 21-Jan-20180:00 Fluid/Washing See Note (Normal) Comments: [facility] [address] [place], [place], [address] Comments: Patient: GABBI ROLLE : 1945 (72/F) Acct Num: [id number] Phys: Leslie BALDWIN,Carlos Unit Num: [id number] Loc: US Specimen: [id number] Received: 01/24/18846 Spec Type: Flu id TISSUES TISSUES: THORACIC FLUID CYTOLOGY GROSS Received is 695 ml of laquita cloudy fluid labeled with the patient's name and DOBand designated per the requisition as t horacentesis. Submitted for cytology preparation including cell block. / 01/23/18 TC:5 CPT: 88963, 57099 CYTOLOGY STUDY Slides are reviewed. The specimen consists of mesothelial cells, mac rophages and inflammatory cells. DIAGNOSIS CYTOLOGY Thoracentesis fluid for cytology (cytospin and cell block): Negative for malignant cells. SJ:rachael 01/25/18 HEADER OPERATION: Thora centesis PRE-OP DIAGNOSIS: Pleural effusion TISSUE SUBMITTED: Thoracentesis fluid for cytology Signed Sha Hogue 01/27/18 <signature on file> 20-Jan-20189:30 Partial Thromboplast Time Comments: RESULT(S) PREVIOUSLY REPORTED ON MANUAL REQUISITION DURINGDOWNTIME.[facility] [id number] [place], [place], [id number] PTT 42.2 s (Abnormal) Range: 24.1-36.2 20-Jan-20189:30 Prothrombin Time w/INR Comments: RESULT(S) PREVIOUSLY REPORTED ON MANUAL REQUISITION DURINGDOWNTIME.[facility] [id number] [place], [place], [id number] INR 1.3 (Normal) PROTIME 16.2 s (Abnormal) Range: 11.7-14.9 [id number] Basic Metabolic Profile (BMP) Comments: [facility] [id number] [place], [address] GAP 9 (Normal) Range: 5-15 CO2 24.0 mmol/L (Normal) Range: 21.0-32.0 CL 106 mmol/L (Normal) Range: 98-107 K 4.5 mmol/L (Normal) Range: 3.5-5.1 NA 139 mmol/L (Normal) Range: 136-145 CA 9.2 mg/dL (Normal) Range: 8.5-10.1 BUN/CRE 17.8 {RATIO} (Normal) Range: 10-20 Estimated CRCL 35.55 ml/min (Normal) EST GFR - AA 49 mL/min (Abnormal) Comments: GFR Calc EST GFR 41 mL/min (Abnormal) Comments: Non- GFR Calc CREAT,SERUM 1.35 mg/dL (Abnormal) Range: 0.55-1.02 Comments: The validity of the calculated GFR AND GFRAA in patients over70 years has not been determined. Clinical correlation isessential. BUN 24 mg/dL (Abnormal) Range: 7-18 GLU 132 mg/dL (Abnormal) Range: 74-106 Comments: Fasting Glucose result greater than or equal to 126 mg/dLsuggests DIABETES MELLITUS per A.D.A. criteria.Please note revised GLUCOSE reference range /02/2018. 74-[id number]:55 BNP,B-Type NATRIURETIC PEPTIDE Comments: [facility] [id number] [place], [place], [id number] B-TYPE MARY JO PEP 208.1 pg/mL (Abnormal) Range: 0-100 [id number]-[id number]:55 CBC W/Diff, Automated Comments: [facility] [id number] [place], [address] Absolute Lymph 0.56 {X10_3/ul} (Abnormal) Range: 0.83-4.51 Absolute Neut 6.1 {X10_3/uL} (Normal) Range: 2.0-7.7 IM GRAN % 0.100 % (Normal) Range: 0.0-0.9 Comments: IG% - Immature Granulocytes (promyelocytes, myelocytes andmetamyelocytes) > 1% indicates that a LEFT SHIFT is Present. BASO% 0.3 % (Normal) Range: 0-1 EO% 1.1 % (Normal) Range: 0-5 MONO% 4.5 % (Normal) Range: 0-10 LY% 7.9 % (Abnormal) Range: 19-41 NEUT% 86.1 % (Abnormal) Range: 47-70 MPV 10.6 fL (Normal) Range: 6.2-12.0 PLT 234 K/mm3 (Normal) Range: 150-450 RDW SD 60.8 fL (Abnormal) Range: 35.1-43.9 RDW CV 16.6 % (Abnormal) Range: 11.6-14.6 MCHC 29.3 {g/gl} (Abnormal) Range: 32-36 MCH 30.1 pg (Normal) Range: 27.0-32.0 MCV 102.6 fL (Abnormal) Range: 81-99 HCT 31.4 % (Abnormal) Range: 37-47 HGB 9.2 g/dL (Abnormal) Range: 12.0-15.0 RBC 3.06 {M/mm3} (Abnormal) Range: 4.2-5.4 WBC 7.1 K/mm3 (Normal) Range: 4.4-11.0 :44 Protime w/INR Fingerstick Comments: [facility] [id number] [place] [address] INR ISTAT 1.20 (Normal) Comments: Critical Value > 3.5 PROTIME ISTAT 13.7 {SEC} (Normal) Range: 11.9-14.4 Comments: Reference Range 11.9 - 14.4 :43 Bedside Glucose Comments: [facility] LaboratoryPoint of [address] [place] [address] BEDSIDE GLU 147 mg/dL (Abnormal) Range: 70-110 Comments: MANAGEMENT OF PATIENT CARE PER NURSING PROTOCOL 37-Jth-[id number]:01 CBC W/Diff, Automated Comments: Reason for Laboratory Test .[facility] [address] [place], [address] Absolute Lymph 0.80 {X10_3/ul} (Abnormal) Range: 0.83-4.51 Absolute Neut 5.7 {X10_3/uL} (Normal) Range: 2.0-7.7 IM GRAN % 0.300 % (Normal) Range: 0.0-0.9 Comments: IG% - Immature Granulocytes (promyelocytes, myelocytes andmetamyelocytes) > 1% indicates that a LEFT SHIFT is Present. BASO% 0.4 % (Normal) Range: 0-1 EO% 1.4 % (Normal) Range: 0-5 MONO% 5.4 % (Normal) Range: 0-10 LY% 11.3 % (Abnormal) Range: 19-41 NEUT% 81.2 % (Abnormal) Range: 47-70 MPV 11.5 fL (Normal) Range: 6.2-12.0 PLT 240 K/mm3 (Normal) Range: 150-450 RDW SD 60.0 fL (Abnormal) Range: 35.1-43.9 RDW CV 16.9 % (Abnormal) Range: 11.6-14.6 MCHC 29.6 {g/gl} (Abnormal) Range: 32-36 MCH 30.3 pg (Normal) Range: 27.0-32.0 MCV 102.2 fL (Abnormal) Range: 81-99 HCT 27.7 % (Abnormal) Range: 37-47 HGB 8.2 g/dL (Abnormal) Range: 12.0-15.0 RBC 2.71 {M/mm3} (Abnormal) Range: 4.2-5.4 WBC 7.1 K/mm3 (Normal) Range: 4.4-11.0 59-Kxd-695398:01 Comprehensive Metabolic Profil Comments: Reason for Laboratory Test .[facility] [address] [place], [place], [id number] GAP 6 (Normal) Range: 5-15 CO2 25.0 mmol/L (Normal) Range: 21.0-32.0 CL 109 mmol/L (Abnormal) Range: 98-107 K 4.4 mmol/L (Normal) Range: 3.5-5.1 NA 140 mmol/L (Normal) Range: 136-145 T BILI 0.40 mg/dL (Normal) Range: 0.20-1.00 ALT 17 U/L (Normal) Range: 13-56 ALK P 76 U/L (Normal) Range: 45-117 AST 16 U/L (Normal) Range: 15-37 CA 8.9 mg/dL (Normal) Range: 8.5-10.1 A/G 0.9 {RATIO} (Normal) Range: 0.9-2.4 GLOB 3.6 g/dL (Normal) Range: 2.2-4.2 ALB 3.4 g/dL (Normal) Range: 3.2-5.0 T PROT 7.0 g/dL (Normal) Range: 6.4-8.2 BUN/CRE 17.0 {RATIO} (Normal) Range: 10-20 Estimated CRCL 32.65 ml/min (Normal) EST GFR - AA 45 mL/min (Abnormal) Comments: GFR Calc EST GFR 37 mL/min (Abnormal) Comments: Non- GFR Calc CREAT,SERUM 1.47 mg/dL (Abnormal) Range: 0.55-1.02 Comments: The validity of the calculated GFR AND GFRAA in patients over70 years has not been determined. Clinical correlation isessential. BUN 25 mg/dL (Abnormal) Range: 7-18 GLU 108 mg/dL (Abnormal) Range: 74-106 Comments: Fasting Glucose result from 100 to 125 mg/dLsuggests IMPAIRED HOMEOSTASIS per A.D.A. criteria.Please note revised GLUCOSE reference range sbzsaamub07/02/2018. 86-Bvj-900148:01 Erythropoietin Comments: Reason for Laboratory Test .[facility] (refer to report for specific site)refer to report for address and phone number [facility] [id number] 105.6 m[iU]/mL (Abnormal) Range: 2.6-18.5 Comments: [employer] DxI 800 Immunoassay SystemPerformed at: - Lab[address] [id number] Director: Heron Almonte PhD, Phone: [phone] [id number]-Zmx-[id number]:01 Ferritin Comments: Reason for Laboratory Test .[facility] [address] [place], [place], [address] FERRITIN 69 ng/mL (Normal) Range: 8-252 21-Wpz-899025:01 Iron+Iron Binding Capacity Comments: Reason for Laboratory Test .[facility] [address] [place], [place], [address] IRON SATURATION 19.7 % (Normal) Range: 15.0-55.0 IRON 77 ug/dL (Normal) Range: 50-170 TIBC 391 ug/dL (Normal) Range: 250-450 60-Ebu-924275:06 Metabolic Panel, Comprehensive Comments: send to Dr. Mccurdy; PATIENT NOT FASTINGPERFORMED BY: [facility] [employer] Slukjs5949 [facility] [id number] ([id number]) ALT (SGPT) 18 [iU]/L (Normal) Range: 0-32 AST (SGOT) 22 [iU]/L (Normal) Range: 0-40 Alkaline Phosphatase 65 [iU]/L (Normal) Range: 39-117 Bilirubin, Total 0.4 mg/dL (Normal) Range: 0.0-1.2 A/G Ratio 1.5 (Normal) Range: 1.2-2.2 Globulin, Total 2.7 g/dL (Normal) Range: 1.5-4.5 Albumin 4.1 g/dL (Normal) Range: 3.5-4.8 Protein, Total 6.8 g/dL (Normal) Range: 6.0-8.5 Calcium 9.9 mg/dL (Normal) Range: 8.7-10.3 Carbon Dioxide, Total 22 mmol/L (Normal) Range: 18-29 Chloride 104 mmol/L (Normal) Range: 96-106 Potassium 5.0 mmol/L (Normal) Range: 3.5-5.2 Sodium 141 mmol/L (Normal) Range: 134-144 BUN/Creatinine Ratio 18 (Normal) Range: 12-28 eGFR If Africn Am 43 mL/min/1.73 (Abnormal) eGFR If NonAfricn Am 38 mL/min/1.73 (Abnormal) Creatinine 1.38 mg/dL (Abnormal) Range: 0.57-1.00 BUN 25 mg/dL (Normal) Range: 8-27 Glucose 114 mg/dL (Abnormal) Range: 65-99 70-Evy-394853:06 TSH (THYROID STIMULATING Comments: send results to Dr. Bowers; PATIENT NOT FASTINGPERFORMED BY: [facility] Cqtygm4089 [facility] [id number] HORMONE) (80540) TSH 3.420 {uIU/mL} (Normal) Range: 0.450-4.500 67-Vfd-160422:09 CBC W/Diff, Automated Comments: Reason for Laboratory Test .[facility] [address] [place], [place], [address] SMEAR COMMENT (Normal) Comments: SLIDE SCANNED - LYMPHOPENIA, 1+ ANISO. Absolute Lymph 0.56 {X10_3/ul} (Abnormal) Range: 0.83-4.51 Absolute Neut 5.8 {X10_3/uL} (Normal) Range: 2.0-7.7 IM GRAN % 0.100 % (Normal) Range: 0.0-0.9 Comments: IG% - Immature Granulocytes (promyelocytes, myelocytes andmetamyelocytes) > 1% indicates that a LEFT SHIFT is Present. BASO% 0.3 % (Normal) Range: 0-1 EO% 1.2 % (Normal) Range: 0-5 MONO% 5.0 % (Normal) Range: 0-10 LY% 8.2 % (Abnormal) Range: 19-41 NEUT% 85.2 % (Abnormal) Range: 47-70 MPV 10.0 fL (Normal) Range: 6.2-12.0 PLT 241 K/mm3 (Normal) Range: 150-450 RDW SD 73.6 fL (Abnormal) Range: 35.1-43.9 RDW CV 19.9 % (Abnormal) Range: 11.6-14.6 MCHC 29.3 {g/gl} (Abnormal) Range: 32-36 MCH 29.6 pg (Normal) Range: 27.0-32.0 MCV 101.0 fL (Abnormal) Range: 81-99 HCT 31.4 % (Abnormal) Range: 37-47 HGB 9.2 g/dL (Abnormal) Range: 12.0-15.0 RBC 3.11 {M/mm3} (Abnormal) Range: 4.2-5.4 WBC 6.9 K/mm3 (Normal) Range: 4.4-11.0 38-Lxw-364962:09 Erythropoietin Comments: Reason for Laboratory Test .[facility] (refer to report for specific site)refer to report for address and phone number ERYTHROP [phone] 51.6 m[iU]/mL (Abnormal) Range: 2.6-18.5 Comments: [employer] DxI 800 Immunoassay SystemPerformed at: [facility] [employer] [address] [id number] Director: Heron Almonte PhD, Phone: [phone] 74-Ohe-449553:09 Ferritin Comments: Reason for Laboratory Test .[facility] [address] [place], [place], [address] FERRITIN 43 ng/mL (Normal) Range: 8-252 26-Xms-502843:09 Iron+Iron Binding Capacity Comments: Reason for Laboratory Test .[facility] [address] [place], [place], [address] IRON SATURATION 10.4 % (Abnormal) Range: 15.0-55.0 IRON 56 ug/dL (Normal) Range: 50-170 Comments: Slight Hemolysis, Result may be falsely increased. TIBC 536 ug/dL (Abnormal) Range: 250-450 81-Izx-329242:09 Retic Panel Comments: Reason for Laboratory Test .[facility] [address] [place], [place], [address] IPF 3.8 % (Normal) Range: 1.0-7.9 Comments: Low PLT + Low IPF suggest a bone marrow production disorderLow PLT + high IPF suggests peripheral destruction(e.g.ITP, TTP, HIT, DIC, autoimmune) or bone marrow recoveryTrending of serial IPF measuremen ts is recommended whenevaluating for bone marrow responesValue above normal range indicates an increase in RBCcellular response from bone marrow. RET-HE 24.2 pg (Abnormal) Range: 30-35 IM RET FRACTION 12.50 % (Normal) Range: 3.00-15.90 RETIC 5.76 % (Abnormal) Range: 0.5-1.5 44-Ppg-842193:55 Basic Metabolic Profile (BMP) Comments: 'TROP' Serial specimen #1, #2, #3, or #4: [facility] [address]jnmo[address] [place], [place], [address] GAP 9 (Normal) Range: 5-15 CO2 23.0 mmol/L (Normal) Range: 21.0-32.0 CL 107 mmol/L (Normal) Range: 98-107 K 4.5 mmol/L (Normal) Range: 3.5-5.1 NA 139 mmol/L (Normal) Range: 136-145 CA 8.8 mg/dL (Normal) Range: 8.5-10.1 BUN/CRE 20.6 {RATIO} (Abnormal) Range: 10-20 Estimated CRCL 26.66 ml/min (Normal) EST GFR - AA 35 mL/min (Abnormal) Comments: GFR Calc EST GFR 29 mL/min (Abnormal) Comments: Non- GFR Calc CREAT,SERUM 1.80 mg/dL (Abnormal) Range: 0.55-1.02 Comments: The validity of the calculated GFR AND GFRAA in patients over70 years has not been determined. Clinical correlation isessential. BUN 37 mg/dL (Abnormal) Range: 7-18 GLU 127 mg/dL (Abnormal) Range: 74-106 Comments: Fasting Glucose result greater than or equal to 126 mg/dLsuggests DIABETES MELLITUS per A.D.A. criteria.Please note revised GLUCOSE reference range aerlvzcuh55/02/2018. 70-Zea-233475:55 BNP,B-Type NATRIURETIC PEPTIDE Comments: [facility] [address] [place], [address] B-TYPE MARY JO PEP 217.5 pg/mL (Abnormal) Range: 0-100 91-Akb-289900:55 CBC W/Diff, Automated Comments: [facility] [address] [place], [address] MACROCYTE 1+ (Normal) POLYCHROMASIA 1+ (Normal) ANISO 2+ (Normal) PLT MORPH GIANT (Normal) Comments: RARE GIANT PLATELET PLT EST ADEQUATE (Normal) SMEAR COMMENT SCANNED (Normal) Absolute Lymph 1.22 {X10_3/ul} (Normal) Range: 0.83-4.51 Absolute Neut 6.1 {X10_3/uL} (Normal) Range: 2.0-7.7 IM GRAN % 0.100 % (Normal) Range: 0.0-0.9 Comments: IG% - Immature Granulocytes (promyelocytes, myelocytes andmetamyelocytes) > 1% indicates that a LEFT SHIFT is Present. BASO% 0.4 % (Normal) Range: 0-1 EO% 0.6 % (Normal) Range: 0-5 MONO% 6.1 % (Normal) Range: 0-10 LY% 15.5 % (Abnormal) Range: 19-41 NEUT% 77.3 % (Abnormal) Range: 47-70 MPV 10.3 fL (Normal) Range: 6.2-12.0 PLT 329 K/mm3 (Normal) Range: 150-450 RDW SD 66.4 fL (Abnormal) Range: 35.1-43.9 RDW CV 18.7 % (Abnormal) Range: 11.6-14.6 MCHC 28.3 {g/gl} (Abnormal) Range: 32-36 MCH 29.8 pg (Normal) Range: 27.0-32.0 MCV 105.5 fL (Abnormal) Range: 81-99 HCT 25.1 % (Abnormal) Range: 37-47 HGB 7.1 g/dL (Abnormal) Range: 12.0-15.0 RBC 2.38 {M/mm3} (Abnormal) Range: 4.2-5.4 WBC 7.9 K/mm3 (Normal) Range: 4.4-11.0 :55 Prothrombin Time w/INR Comments: [facility] [address] [place], [place], [address] INR 2.4 (Normal) PROTIME 26.4 s (Abnormal) Range: 11.7-14.9 66-Aup-893533:55 Troponin-I Comments: 'TROP' Serial specimen #1, #2, #3, or #4: [address] [place] [address] [address] [place], [place], [address] TROPONIN-I < 0.02 ng/mL (Normal) Comments: TROPONIN-I EXPECTED VALUES <0.05 NEGATIVE 0.06 - 0.59 AT RISK OF NH > OR = 0.60 SUGGEST NH [id number]-Ata-633036:40 Basic Metabolic Profile (BMP) Comments: 'TROP' Serial specimen #1, #2, #3, or #4: [address] [place] [address] [place], [place], [address] GAP 7 (Normal) Range: 5-15 CO2 24.0 mmol/L (Normal) Range: 21.0-32.0 CL 110 mmol/L (Abnormal) Range: 98-107 K 4.1 mmol/L (Normal) Range: 3.5-5.1 NA 141 mmol/L (Normal) Range: 136-145 CA 8.8 mg/dL (Normal) Range: 8.5-10.1 BUN/CRE 20.3 {RATIO} (Abnormal) Range: 10-20 Estimated CRCL 32.43 ml/min (Normal) EST GFR - AA 44 mL/min (Abnormal) Comments: GFR Calc EST GFR 37 mL/min (Abnormal) Comments: Non- GFR Calc CREAT,SERUM 1.48 mg/dL (Abnormal) Range: 0.55-1.02 Comments: The validity of the calculated GFR AND GFRAA in patients over70 years has not been determined. Clinical correlation isessential. BUN 30 mg/dL (Abnormal) Range: 7-18 GLU 159 mg/dL (Abnormal) Range: 74-106 Comments: Fasting Glucose result greater than or equal to 126 mg/dLsuggests DIABETES MELLITUS per A.D.A. criteria.Please note revised GLUCOSE reference range cubmcdakd46/02/2018. 7-Lso-920811:40 BNP,B-Type NATRIURETIC PEPTIDE Comments: [facility] [address] [place], [place], [address] B-TYPE MARY JO PEP 226.6 pg/mL (Abnormal) Range: 0-100 4-Egh-607454:40 CBC W/Diff, Automated Comments: [facility] [address] [place], [place], [address] SMEAR COMMENT SCANNED (Normal) Comments: 1+ ANISOCYTOSIS Absolute Lymph 0.72 {X10_3/ul} (Abnormal) Range: 0.83-4.51 Absolute Neut 4.8 {X10_3/uL} (Normal) Range: 2.0-7.7 IM GRAN % 0.200 % (Normal) Range: 0.0-0.9 Comments: IG% - Immature Granulocytes (promyelocytes, myelocytes andmetamyelocytes) > 1% indicates that a LEFT SHIFT is Present. BASO% 0.5 % (Normal) Range: 0-1 EO% 1.2 % (Normal) Range: 0-5 MONO% 5.5 % (Normal) Range: 0-10 LY% 12.0 % (Abnormal) Range: 19-41 NEUT% 80.6 % (Abnormal) Range: 47-70 MPV 10.8 fL (Normal) Range: 6.2-12.0 PLT 249 K/mm3 (Normal) Range: 150-450 RDW SD 71.6 fL (Abnormal) Range: 35.1-43.9 RDW CV 19.1 % (Abnormal) Range: 11.6-14.6 MCHC 28.3 {g/gl} (Abnormal) Range: 32-36 MCH 30.1 pg (Normal) Range: 27.0-32.0 MCV 106.2 fL (Abnormal) Range: 81-99 HCT 29.3 % (Abnormal) Range: 37-47 HGB 8.3 g/dL (Abnormal) Range: 12.0-15.0 RBC 2.76 {M/mm3} (Abnormal) Range: 4.2-5.4 WBC 6.0 K/mm3 (Normal) Range: 4.4-11.0 :40 Prothrombin Time w/INR Comments: [address] [place], [address] INR 2.8 (Normal) PROTIME 29.7 s (Abnormal) Range: 11.7-14.9 3-Qac-257748:40 Troponin-I Comments: 'TROP' Serial specimen #1, #2, #3, or #4: [address] [place], [address] TROPONIN-I < 0.02 ng/mL (Normal) Comments: TROPONIN-I EXPECTED VALUES <0.05 NEGATIVE 0.06 - 0.59 AT RISK OF NH > OR = 0.60 SUGGEST NH 38-Fdy-29617:53 CBC W/Diff, Automated Comments: CMP,LIPID,FERRITIN,IRON,TIBC FOR CIESAReason for Laboratory Test [facility] [address] [place], [place], [address] HYPOCHROMASIA 2+ (Normal) POLYCHROMASIA RARE (Normal) ANISO 1+ (Normal) PLT EST ADEQUATE (Normal) Absolute Lymph 0.95 {X10_3/ul} (Normal) Range: 0.83-4.51 Absolute Neut 5.2 {X10_3/uL} (Normal) Range: 2.0-7.7 IM GRAN % 0.200 % (Normal) Range: 0.0-0.9 Comments: IG% - Immature Granulocytes (promyelocytes, myelocytes andmetamyelocytes) > 1% indicates that a LEFT SHIFT is Present. BASO% 0.5 % (Normal) Range: 0-1 EO% 1.1 % (Normal) Range: 0-5 MONO% 3.8 % (Normal) Range: 0-10 LY% 14.6 % (Abnormal) Range: 19-41 NEUT% 79.8 % (Abnormal) Range: 47-70 MPV 11.5 fL (Normal) Range: 6.2-12.0 PLT 250 K/mm3 (Normal) Range: 150-450 RDW SD 66.8 fL (Abnormal) Range: 35.1-43.9 RDW CV 19.1 % (Abnormal) Range: 11.6-14.6 MCHC 29.4 {g/gl} (Abnormal) Range: 32-36 MCH 28.9 pg (Normal) Range: 27.0-32.0 MCV 98.2 fL (Normal) Range: 81-99 HCT 27.9 % (Abnormal) Range: 37-47 HGB 8.2 g/dL (Abnormal) Range: 12.0-15.0 RBC 2.84 {M/mm3} (Abnormal) Range: 4.2-5.4 WBC 6.5 K/mm3 (Normal) Range: 4.4-11.0 :53 Comprehensive Metabolic Comments: CMP,LIPID,FERRITIN,IRON,TIBC FOR Christianoason for Laboratory Test [facility] [address] [place], [address] Profil GAP 8 (Normal) Range: 5-15 CO2 24.0 mmol/L (Normal) Range: 21.0-32.0 CL 107 mmol/L (Normal) Range: 98-107 K 4.3 mmol/L (Normal) Range: 3.5-5.1 NA 139 mmol/L (Normal) Range: 136-145 T BILI 0.50 mg/dL (Normal) Range: 0.20-1.00 ALT 17 U/L (Normal) Range: 13-56 Comments: Please note revised ALT reference range liiokwctx17/28/2018. ALK P 76 U/L (Normal) Range: 45-117 AST 19 U/L (Normal) Range: 15-37 CA 8.8 mg/dL (Normal) Range: 8.5-10.1 A/G 1.0 {RATIO} (Normal) Range: 0.9-2.4 GLOB 3.5 g/dL (Normal) Range: 2.2-4.2 ALB 3.6 g/dL (Normal) Range: 3.2-5.0 T PROT 7.1 g/dL (Normal) Range: 6.4-8.2 BUN/CRE 23.1 {RATIO} (Abnormal) Range: 10-20 EST GFR - AA 46 mL/min (Abnormal) Comments: GFR Calc EST GFR 38 mL/min (Abnormal) Comments: Non- GFR Calc CREAT,SERUM 1.43 mg/dL (Abnormal) Range: 0.55-1.02 Comments: The validity of the calculated GFR AND GFRAA in patients over70 years has not been determined. Clinical correlation isessential. BUN 33 mg/dL (Abnormal) Range: 7-18 GLU 111 mg/dL (Abnormal) Range: 74-106 Comments: Fasting Glucose result from 100 to 125 mg/dLsuggests IMPAIRED HOMEOSTASIS per A.D.A. criteria.Please note revised GLUCOSE reference range pvigkaxcn20/02/2018. 47-Yrp-50447:53 Ferritin Comments: CMP,LIPID,FERRITIN,IRON,TIBC FOR CIESAReason for Laboratory Test [facility] [address] [place], [id number] FERRITIN 32 ng/mL (Normal) Range: 8-252 :53 Iron+Iron Binding Comments: CMP,LIPID,FERRITIN,IRON,TIBC FOR CIESAReason for Laboratory Test [facility] [address] [place], [address] Capacity IRON SATURATION 21.2 % (Normal) Range: 15.0-55.0 IRON 95 ug/dL (Normal) Range: 50-170 TIBC 449 ug/dL (Normal) Range: 250-450 :53 Lipid Profile Comments: CMP,LIPID,FERRITIN,IRON,TIBC FOR [facility]OSPITALAReason for Laboratory Test [facility] [address] [place], [address] VLDL 24 mg/dL (Normal) Range: 5-40 LDL 48 mg/dL (Normal) Range: 0-130 HDL 29 mg/dL (Abnormal) Comments: The drugs N-Acetylcysteine and Metamizole may falselydepress this assay. Reference Range HDL <40 mg/dL Low HDL Cholesterol HDL >or= 60 mg/dL High HDL Cholesterol TRIG 120 mg/dL (Normal) Comments: The drugs N-Acetylcysteine and Metamizole may falselydepress this assay.Serum Triglycerides Reference Interval Normal <150 mg/dL Borderline high 150 - 199 mg/dL High 200 - 499 mg/dL Very High > or = 500 mg/dL CHOL 101 mg/dL (Normal) Comments: <200 mg/dL Desirable 200-240 mg/dL Borderline >240 mg/dL High Risk :54 Culture, Urine Comments: [facility] [address] [place], [address] CUUR See Note (Normal) Comments: Urine CultureBelow infection level. ORGANISM 1: Mixed Gram Positive OrganismsColony Count 1000-10,000 4-Hpy-889773:54 Urinalysis, Complete Comments: How was Urine Obtained? CLEAN [facility] [address] [place], [address] MUCUS, URINE 0 SEEN {/hpf} (Normal) BACTERIA 0 SEEN {/hpf} (Normal) SQUAM EPI 0 SEEN {/hpf} (Normal) Range: 5-10 RBC-UA 0 SEEN {/hpf} (Normal) Range: 0-5 WBC 0 SEEN {/hpf} (Normal) Range: 0-5 LEUK ESTERASE Negative /ul (Normal) OCCULT BLOOD-UR Negative /ul (Normal) NITRITE UR Negative (Normal) UROBILI Normal mg/dL (Normal) PROT DIPSTX Negative mg/dL (Normal) pH UR 7.0 (Normal) Range: 5.0 - 8.0 SP.GR. DIPSTX 1.010 (Normal) Range: 1.002-1.030 KETONE UR Negative mg/dL (Normal) BILIRUBIN URINE Negative mg/dL (Normal) GLUCOSE, UR Normal mg/dL (Normal) CLARITY Clear (Normal) COLOR Yellow (Normal) :37 HgA1C , Office (63511) HgA1C , Office 5.5 % (Normal) Range: 4.6 - 7.1 :35 Blood Glucose , Office (88332) Blood Glucose , Office 170 (Normal) 87-Epu-28966:12 Influenza A&B Viral Comments: PATIENT NOT FASTINGPERFORMED BY: [facility] Xssqpz2185 [facility] [id number] Information: SRC:NL Culture (16801) Viral Culture,Rapid,Influenza FLUABN (Normal) Comments: Negative:No Influenza A or B detected. 04-Wgm-096746:40 Rapid Flu (20635 x 2) Influenza A Ag neg (Normal) 99-Jgo-071185:16 CBC W/Diff, Automated Comments: Reason for Laboratory Test [facility] [address] [place], [address] ; Dr Khan Absolute Lymph 1.13 {X10_3/ul} (Normal) Range: 0.83-4.51 Absolute Neut 7.8 {X10_3/uL} (Abnormal) Range: 2.0-7.7 IM GRAN % 0.100 % (Normal) Range: 0.0-0.9 Comments: IG% - Immature Granulocytes (promyelocytes, myelocytes andmetamyelocytes) > 1% indicates that a LEFT SHIFT is Present. BASO% 0.3 % (Normal) Range: 0-1 EO% 0.8 % (Normal) Range: 0-5 MONO% 5.4 % (Normal) Range: 0-10 LY% 11.8 % (Abnormal) Range: 19-41 NEUT% 81.6 % (Abnormal) Range: 47-70 MPV 11.3 fL (Normal) Range: 6.2-12.0 PLT 290 K/mm3 (Normal) Range: 150-450 RDW SD 58.4 fL (Abnormal) Range: 35.1-43.9 RDW CV 16.9 % (Abnormal) Range: 11.6-14.6 MCHC 28.9 {g/gl} (Abnormal) Range: 32-36 MCH 27.4 pg (Normal) Range: 27.0-32.0 MCV 94.9 fL (Normal) Range: 81-99 HCT 35.7 % (Abnormal) Range: 37-47 HGB 10.3 g/dL (Abnormal) Range: 12.0-15.0 RBC 3.76 {M/mm3} (Abnormal) Range: 4.2-5.4 WBC 9.6 K/mm3 (Normal) Range: 4.4-11.0 65-Zjt-873631:16 Ferritin Comments: Reason for Laboratory Test [facility] [address] [place], [address] FERRITIN 33 ng/mL (Normal) Range: 8-252 88-Psg-313192:16 Iron+Iron Binding Capacity Comments: Reason for Laboratory Test [facility] [address] [place], [address] IRON SATURATION 12.8 % (Abnormal) Range: 15.0-55.0 IRON 56 ug/dL (Normal) Range: 50-170 TIBC 436 ug/dL (Normal) Range: 250-450 74-Gng-636857:16 Retic Panel Comments: Reason for Laboratory Test [facility] [address] [place], [address] IPF 3.1 % (Normal) Range: 1.0-7.9 Comments: Low PLT + Low IPF suggest a bone marrow production disorderLow PLT + high IPF suggests peripheral destruction(e.g.ITP, TTP, HIT, DIC, autoimmune) or bone marrow recoveryTrending of serial IPF measuremen ts is recommended whenevaluating for bone marrow responesValue above normal range indicates an increase in RBCcellular response from bone marrow. RET-HE 24.3 pg (Abnormal) Range: 30-35 IM RET FRACTION 16.70 % (Abnormal) Range: 3.00-15.90 RETIC 3.74 % (Abnormal) Range: 0.5-1.5 :16 HgA1C , Office (17807) Comments: 5.6 HgA1C , Office 5.6 % (Normal) Range: 4.6 - 7.1 :16 Blood Glucose , Office (30610) Blood Glucose , Office 145 (Normal) :22 PT (PROTHROMBIN TIME) (35243) Comments: Standing order; PATIENT NOT FASTINGPERFORMED BY: [employer]6[address] [facility] [id number] Prothrombin Time 11.5 {sec} (Normal) Range: 9.1-12.0 INR 1.1 (Normal) Range: 0.8-1.2 Comments: Reference interval is for non-anticoagulated patients. . Suggested INR therapeutic range for Vitamin K anta gonist therapy: Standard Dose (moderate intensity therapeutic range): 2.0 - 3.0 Higher intensity therapeutic range 2.5 - 3.5 :25 PT (PROTHROMBIN TIME) (05000) Comments: Standing order; PATIENT NOT FASTINGPERFORMED BY: [id number] [facility] [id number] Prothrombin Time 17.1 {sec} (Abnormal) Range: 9.1-12.0 INR 1.7 (Abnormal) Range: 0.8-1.2 Comments: Reference interval is for non-anticoagulated patients. . Suggested INR therapeutic range for Vitamin K anta gonist therapy: Standard Dose (moderate intensity therapeutic range): 2.0 - 3.0 Higher intensity therapeutic range 2.5 - 3.5 :55 Blood Gases by [facility] Comments: [place] [address] [place] [address] SO2 ISTAT 95 % (Normal) Range: 95-99 TOTAL CO2 ISTAT 24 mmol/L (Normal) BE ISTAT -2 mmol/L (Normal) HCO3 ISTAT 23.1 mmol/L (Normal) Range: 22-26 PO2 I-STAT 77 {mmHG} (Normal) Range: 75-100 pCO2 - ISTAT 37.5 {mmHg} (Normal) Range: 35-45 pH - I-STAT 7.40 (Normal) Range: 7.35-7.45 BLD GAS TYPE ART (Normal) :35 Venous Blood Gas Comments: [place] [address] [place] [address] ISTAT 25 mmol/L (Normal) Range: 23-33 VBG SO2 ISTAT 58 % (Normal) Range: 50-70 VBG BE ISTAT -1 mmol/L (Normal) Range: -1.0-3.5 VBG HCO3 ISTAT 24 mmol/L (Normal) Range: 22-26 VBG PO2 I-STAT 30 {mmHg} (Normal) Range: 25-40 VBG pCO2 - ISTA 38.8 {mmHg} (Abnormal) Range: 41-51 VBGpH - I-STAT 7.40 (Normal) Range: 7.32-7.42 BLD GAS TYPE JUAN ANTONIO (Normal) :32 Venous Blood Gas Comments: [place] [address] [place] [address] ISTAT 25 mmol/L (Normal) Range: 23-33 VBG SO2 ISTAT 58 % (Normal) Range: 50-70 VBG BE ISTAT -1 mmol/L (Normal) Range: -1.0-3.5 VBG HCO3 ISTAT 24 mmol/L (Normal) Range: 22-26 VBG PO2 I-STAT 30 {mmHg} (Normal) Range: 25-40 VBG pCO2 - ISTA 39.7 {mmHg} (Abnormal) Range: 41-51 VBGpH - I-STAT 7.39 (Normal) Range: 7.32-7.42 BLD GAS TYPE JUAN ANTONIO (Normal) [id number] Basic Metabolic Profile (BMP) Comments: Order Date: 03/26/17Order Info: [id number] - *BMPComments: Reason:[facility] [id number] [place], [place], [id number] GAP 6 (Normal) Range: 5-15 CO2 27.0 mmol/L (Normal) Range: 21.0-32.0 CL 106 mmol/L (Normal) Range: 98-107 K 4.6 mmol/L (Normal) Range: 3.5-5.1 NA 139 mmol/L (Normal) Range: 136-145 CA 9.9 mg/dL (Normal) Range: 8.5-10.1 BUN/CRE 20.0 {RATIO} (Normal) Range: 10-20 EST GFR - AA 52 mL/min (Abnormal) Comments: GFR Calc EST GFR 43 mL/min (Abnormal) Comments: Non- GFR Calc CREAT,SERUM 1.30 mg/dL (Abnormal) Range: 0.55-1.02 Comments: The validity of the calculated GFR AND GFRAA in patients over70 years has not been determined. Clinical correlation isessential. BUN 26 mg/dL (Abnormal) Range: 7-18 GLU 115 mg/dL (Abnormal) Range: 70-110 Comments: Fasting Glucose result from 110 to <126 mg/dLsuggests IMPAIRED HOMEOSTASIS per A.D.A. criteria.; ADDENDA: another doc [id number]-Zka-[id number]:01 CBC-Complete Blood Cnt No Diff Comments: Order Date: 03/26/17Order Info: [id number] - *CBC without DiffComments: Reason:[facility] [address] [place], [place], [id number] ; another doc MPV 12.4 fL (Abnormal) Range: 6.2-12.0 PLT 197 K/mm3 (Normal) Range: 150-450 RDW SD 57.8 fL (Abnormal) Range: 35.1-43.9 RDW CV 16.9 % (Abnormal) Range: 11.6-14.6 MCHC 29.9 {g/gl} (Abnormal) Range: 32-36 MCH 27.9 pg (Normal) Range: 27.0-32.0 MCV 93.4 fL (Normal) Range: 81-99 HCT 39.5 % (Normal) Range: 37-47 HGB 11.8 g/dL (Abnormal) Range: 12.0-15.0 RBC 4.23 {M/mm3} (Normal) Range: 4.2-5.4 WBC 7.6 K/mm3 (Normal) Range: 4.4-11.0 :31 Iron ([id number]) Comments: PATIENT NOT FASTINGPERFORMED BY: [employer] [facility] Vpbpzg2587 [facility] [id number] Iron, Serum 70 ug/dL (Normal) Range: 27-139 :31 Ferritin (17492) Comments: PATIENT NOT FASTINGPERFORMED BY: [employer] [facility] Vglsmk4059 [facility] [id number] Ferritin, Serum 90 ng/mL (Normal) Range: 15-150 :31 Metabolic Panel, Comprehensive Comments: PATIENT NOT FASTINGPERFORMED BY: [employer] [facility] Bdzwzv8932 [facility] [id number] ([id number]) ALT (SGPT) 16 [iU]/L (Normal) Range: 0-32 AST (SGOT) 15 [iU]/L (Normal) Range: 0-40 Alkaline Phosphatase, S 70 [iU]/L (Normal) Range: 39-117 Bilirubin, Total 0.6 mg/dL (Normal) Range: 0.0-1.2 A/G Ratio 1.5 (Normal) Range: 1.2-2.2 Globulin, Total 2.8 g/dL (Normal) Range: 1.5-4.5 Albumin, Serum 4.2 g/dL (Normal) Range: 3.5-4.8 Protein, Total, Serum 7.0 g/dL (Normal) Range: 6.0-8.5 Calcium, Serum 9.7 mg/dL (Normal) Range: 8.7-10.3 Carbon Dioxide, Total 20 mmol/L (Normal) Range: 18-29 Chloride, Serum 100 mmol/L (Normal) Range: 96-106 Potassium, Serum 4.8 mmol/L (Normal) Range: 3.5-5.2 Sodium, Serum 139 mmol/L (Normal) Range: 134-144 BUN/Creatinine Ratio 23 (Normal) Range: 12-28 eGFR If Africn Am 48 mL/min/1.73 (Abnormal) eGFR If NonAfricn Am 42 mL/min/1.73 (Abnormal) Creatinine, Serum 1.27 mg/dL (Abnormal) Range: 0.57-1.00 BUN 29 mg/dL (Abnormal) Range: 8-27 Glucose, Serum 109 mg/dL (Abnormal) Range: 65-99 29-Pzv-68206:31 CBC WITH MANUAL DIFF (38581) Comments: PATIENT NOT FASTINGPERFORMED BY: [facility] Agyryw5066 [facility] [id number] Immature Grans (Abs) 0.0 {x10E3/uL} Range: 0.0-0.1 (Normal) Immature Granulocytes 0 % (Normal) Baso (Absolute) 0.0 {x10E3/uL} Range: 0.0-0.2 (Normal) Eos (Absolute) 0.1 {x10E3/uL} Range: 0.0-0.4 (Normal) Monocytes(Absolute) 0.4 {x10E3/uL} Range: 0.1-0.9 (Normal) Lymphs (Absolute) 1.2 {x10E3/uL} Range: 0.7-3.1 (Normal) Neutrophils (Absolute) 5.6 {x10E3/uL} Range: 1.4-7.0 (Normal) Basos 0 % (Normal) Eos 2 % (Normal) Monocytes 5 % (Normal) Lymphs 16 % (Normal) Neutrophils 77 % (Normal) Platelets 228 {x10E3/uL} Range: 150-379 (Normal) RDW 16.5 % (Abnormal) Range: 12.3-15.4 MCHC 29.8 g/dL (Abnormal) Range: 31.5-35.7 MCH 27.7 pg (Normal) Range: 26.6-33.0 MCV 93 fL (Normal) Range: 79-97 Hematocrit 33.2 % (Abnormal) Range: 34.0-46.6 Hemoglobin 9.9 g/dL (Abnormal) Range: 11.1-15.9 RBC 3.57 {x10E6/uL} Range: 3.77-5.28 (Abnormal) WBC 7.3 {x10E3/uL} Range: 3.4-10.8 (Normal) 04-Feb-2017 Ferritin, Serum 39 ng/mL (Normal) Comments: A courtesy copy of this report has been sent toHeron Hobbs M.D..PATIENT NOT FASTINGPERFORMED BY: [facility]6370 [facility] [id number] 12:16 Range: 15-150 99-Eqe-101166:16 CBC, PLATELETS & AUT DIFF Comments: A courtesy copy of this report has been sent toHeron Hobbs M.D..PATIENT NOT FASTINGPERFORMED BY: [facility] Pexgaw7302 [facility] [id number] (70858) Immature Grans (Abs) 0.0 {x10E3/uL} (Normal) Range: 0.0-0.1 Immature Granulocytes 0 % (Normal) Baso (Absolute) 0.0 {x10E3/uL} (Normal) Range: 0.0-0.2 Eos (Absolute) 0.1 {x10E3/uL} (Normal) Range: 0.0-0.4 Monocytes(Absolute) 0.5 {x10E3/uL} (Normal) Range: 0.1-0.9 Lymphs (Absolute) 1.3 {x10E3/uL} (Normal) Range: 0.7-3.1 Neutrophils (Absolute) 7.2 {x10E3/uL} (Abnormal) Range: 1.4-7.0 Basos 0 % (Normal) Eos 1 % (Normal) Monocytes 5 % (Normal) Lymphs 14 % (Normal) Neutrophils 80 % (Normal) Platelets 280 {x10E3/uL} (Normal) Range: 150-379 RDW 16.0 % (Abnormal) Range: 12.3-15.4 MCHC 31.1 g/dL (Abnormal) Range: 31.5-35.7 MCH 27.4 pg (Normal) Range: 26.6-33.0 MCV 88 fL (Normal) Range: 79-97 Hematocrit 33.4 % (Abnormal) Range: 34.0-46.6 Hemoglobin 10.4 g/dL (Abnormal) Range: 11.1-15.9 RBC 3.79 {x10E6/uL} (Normal) Range: 3.77-5.28 WBC 9.1 {x10E3/uL} (Normal) Range: 3.4-10.8 61-Ack-919412:16 IRON & TOTAL IRON BINDING Comments: A courtesy copy of this report has been sent toHeron Hobbs M.D..PATIENT NOT FASTINGPERFORMED BY: [facility] Onlfbg5031 [facility] [id number] CAPACITY (12513) Iron Saturation 10 % (Abnormal) Range: 15-55 Iron, Serum 40 ug/dL (Normal) Range: 27-139 UIBC 358 ug/dL (Normal) Range: 118-369 Iron Bind.Cap.(TIBC) 398 ug/dL (Normal) Range: 250-450 46-Ldj-950008:43 Culture, Urine Comments: [facility] [address] [place], [address] CUUR See Note (Normal) Comments: Urine CultureORGANISM 1: Escherichia coliColony Count 50,000-80,000 Escherichia coli: REACTION Amoxacillin/Clavulanic Acid $ <=2 S Ampicillin $ 4 S Ampicillin/Sulbactam $ <=2 S Cefazolin $ <=4 S Cefepime $ <= 1 S Ceftriaxone $ <=1 S Ciprofloxacin $ <=0.25 S ESBL - Ertapenim $$$ <=0.5 S Gentamicin $ <=1 S Imipenem *NF <=0.25 S Levofloxacin $ <=0.12 S Nitrofu rantoin $ <=16 S Piperacillin/Tazobactam $$ <=4 S Tobramycin $ <=1 S Trimethoprim/Sulfametho $ <=20 S(NF) indicates non-formulary drug at [facility]. Approval by Infectious Disease Specialist required before non- formulary drugs may be ordered and/or dispensed. 1-Jer-224227:00 Basic Metabolic Profile (BMP) Comments: [facility] [address] [place], [place], [id number] GAP 10 (Normal) Range: 5-15 CO2 23.0 mmol/L (Normal) Range: 21.0-32.0 CL 107 mmol/L (Normal) Range: 98-107 K 4.8 mmol/L (Normal) Range: 3.5-5.1 NA 140 mmol/L (Normal) Range: 136-145 CA 9.0 mg/dL (Normal) Range: 8.5-10.1 BUN/CRE 21.2 {RATIO} (Abnormal) Range: 10-20 Estimated CRCL 35.56 ml/min (Normal) EST GFR - AA 49 mL/min (Abnormal) Comments: GFR Calc EST GFR 40 mL/min (Abnormal) Comments: Non- GFR Calc CREAT,SERUM 1.37 mg/dL (Abnormal) Range: 0.55-1.02 Comments: The validity of the calculated GFR AND GFRAA in patients over70 years has not been determined. Clinical correlation isessential. BUN 29 mg/dL (Abnormal) Range: 7-18 GLU 118 mg/dL (Abnormal) Range: 70-110 Comments: Fasting Glucose result from 110 to <126 mg/dLsuggests IMPAIRED HOMEOSTASIS per A.D.A. criteria. 3-Pwt-198807:00 CBC W/Diff, Automated Comments: [facility] [address] [place], [address] ; ER Absolute Lymph 1.09 {X10_3/ul} (Normal) Range: 0.83-4.51 Absolute Neut 5.0 {X10_3/uL} (Normal) Range: 2.0-7.7 IM GRAN % 0.000 % (Normal) Range: 0.0-0.9 Comments: IG% - Immature Granulocytes (promyelocytes, myelocytes andmetamyelocytes) > 1% indicates that a LEFT SHIFT is Present. BASO% 0.5 % (Normal) Range: 0-1 EO% 0.6 % (Normal) Range: 0-5 MONO% 4.0 % (Normal) Range: 0-10 LY% 16.9 % (Abnormal) Range: 19-41 NEUT% 78.0 % (Abnormal) Range: 47-70 MPV 10.1 fL (Normal) Range: 6.2-12.0 PLT 295 K/mm3 (Normal) Range: 150-450 RDW SD 57.3 fL (Abnormal) Range: 35.1-43.9 RDW CV 17.6 % (Abnormal) Range: 11.6-14.6 MCHC 30.1 {g/gl} (Abnormal) Range: 32-36 MCH 28.4 pg (Normal) Range: 27.0-32.0 MCV 94.4 fL (Normal) Range: 81-99 HCT 28.9 % (Abnormal) Range: 37-47 HGB 8.7 g/dL (Abnormal) Range: 12.0-15.0 RBC 3.06 {M/mm3} (Abnormal) Range: 4.2-5.4 WBC 6.5 K/mm3 (Normal) Range: 4.4-11.0 1-Yxx-222647:00 Prothrombin Time w/INR Comments: [facility] [address] [place], [place], [id number] INR 1.2 (Normal) PROTIME 14.6 s (Normal) Range: 11.7-14.9 9-Zlm-556621:00 Microscopic Examination Comments: PATIENT WAS FASTINGPERFORMED BY: [facility]CoLy[facility] CenterJfeauh5933 [facility] [id number] Bacteria Few (Normal) Mucus Threads Present (Normal) Epithelial Cells (non renal) 0-10 {/hpf} (Normal) Range: 0 - 10 RBC 0-2 {/hpf} (Normal) Range: 0 - 2 WBC 0-5 {/hpf} (Normal) Range: 0 - 5 82-Xvs-52363:40 Urinalysis, Complete Comments: Order Date: 12/09/16Order Date: 12/09/16How was Urine Obtained? [facility] [address] [place], [place], [id number] MUCUS, URINE 0 SEEN {/hpf} (Normal) BACTERIA 2+ {/hpf} (Normal) SQUAM EPI 0-5 SEEN {/hpf} (Normal) Range: 5-10 RBC-UA 0-5 SEEN {/hpf} (Normal) Range: 0-5 WBC 25-50 SEEN {/hpf} (Normal) Range: 0-5 LEUK ESTERASE 500 /ul (Abnormal) OCCULT BLOOD-UR 50 /ul (Abnormal) NITRITE UR Positive (Abnormal) UROBILI Normal mg/dL (Normal) PROT DIPSTX 30 mg/dL (Abnormal) pH UR 6.0 (Normal) Range: 5.0 - 8.0 SP.GR. DIPSTX 1.015 (Normal) Range: 1.002-1.030 KETONE UR Negative mg/dL (Normal) BILIRUBIN URINE Negative mg/dL (Normal) GLUCOSE, UR Normal mg/dL (Normal) CLARITY Cloudy (Normal) COLOR Yellow (Normal) 11-Pvz-76466:00 Prothrombin Time w/INR Comments: REDRAW. PREVIOUS SPECIMEN REJECTED DUE TOQNS. 12/09/1647 Jessica Allen.REDRAW. PREVIOUS SPECIMEN REJECTED DUE TOQNS. 12/09/1647 Jessica Allen.[facility] [address] [place], [address]) INR 1.6 (Normal) PROTIME 18.1 s (Abnormal) Range: 11.7-14.9 13-Ggx-91432:10 Basic Metabolic Profile (BMP) Comments: 'TROP' Serial specimen #1, #2, #3, or #4: [address] [place] [address] [place], [place], [address] GAP 11 (Normal) Range: 5-15 CO2 23.0 mmol/L (Normal) Range: 21.0-32.0 CL 100 mmol/L (Normal) Range: 98-107 K 4.2 mmol/L (Normal) Range: 3.5-5.1 NA 134 mmol/L (Abnormal) Range: 136-145 CA 8.5 mg/dL (Normal) Range: 8.5-10.1 BUN/CRE 25.4 {RATIO} (Abnormal) Range: 10-20 Estimated CRCL 23.77 ml/min (Normal) EST GFR - AA 31 mL/min (Abnormal) Comments: GFR Calc EST GFR 25 mL/min (Abnormal) Comments: Non- GFR Calc CREAT,SERUM 2.05 mg/dL (Abnormal) Range: 0.55-1.02 Comments: The validity of the calculated GFR AND GFRAA in patients over70 years has not been determined. Clinical correlation isessential. BUN 52 mg/dL (Abnormal) Range: 7-18 GLU 193 mg/dL (Abnormal) Range: 70-110 Comments: Fasting Glucose result greater than or equal to 126 mg/dLsuggests DIABETES MELLITUS per A.D.A. criteria. :10 BNP,B-Type NATRIURETIC PEPTIDE Comments: [facility] [address] [place], [place], [address] B-TYPE MARY JO PEP 243.7 pg/mL (Abnormal) Range: 0-100 :10 CBC W/Diff, Automated Comments: [facility] [address] [place], [place], [address] SMEAR COMMENT SCANNED (Normal) Comments: LYMPHOPENIA NOTED Absolute Lymph 0.40 {X10_3/ul} (Abnormal) Range: 0.83-4.51 Absolute Neut 15.1 {X10_3/uL} (Abnormal) Range: 2.0-7.7 IM GRAN % 0.200 % (Normal) Range: 0.0-0.9 Comments: IG% - Immature Granulocytes (promyelocytes, myelocytes andmetamyelocytes) > 1% indicates that a LEFT SHIFT is Present. BASO% 0.1 % (Normal) Range: 0-1 EO% 0.1 % (Normal) Range: 0-5 MONO% 2.3 % (Normal) Range: 0-10 LY% 2.5 % (Abnormal) Range: 19-41 NEUT% 94.8 % (Abnormal) Range: 47-70 MPV 11.3 fL (Normal) Range: 6.2-12.0 PLT 205 K/mm3 (Normal) Range: 150-450 RDW SD 53.2 fL (Abnormal) Range: 35.1-43.9 RDW CV 16.1 % (Abnormal) Range: 11.6-14.6 MCHC 30.8 {g/gl} (Abnormal) Range: 32-36 MCH 27.7 pg (Normal) Range: 27.0-32.0 MCV 90.0 fL (Normal) Range: 81-99 HCT 27.9 % (Abnormal) Range: 37-47 HGB 8.6 g/dL (Abnormal) Range: 12.0-15.0 RBC 3.10 {M/mm3} (Abnormal) Range: 4.2-5.4 WBC 15.9 K/mm3 (Abnormal) Range: 4.4-11.0 :10 Troponin-I Comments: 'TROP' Serial specimen #1, #2, #3, or #4: [facility] [address] [place], [place], [id number] TROPONIN-I 0.43 ng/mL (Abnormal) Comments: TROPONIN-I EXPECTED VALUES <0.05 NEGATIVE 0.06 - 0.59 AT RISK OF NH > OR = 0.60 SUGGEST NH :02 Lactic Acid Comments: [facility] [address] [place], [place], [address] LACTIC ACID 2.2 mmol/L (Abnormal) Range: 0.4-2.0 39-Nld-394264:45 Rapid Flu (98381 x 2) Comments: Negative Influenza A Ag neg a/b (Normal) 7-Dje-390543:00 MICROALBUMIN: CREATININE RATIO Comments: PATIENT WAS FASTINGPERFORMED BY: [employer]70 [facility] [id number] (13359) AND (27656) Microalb/Creat Ratio 29.7 {mg/g_creat} (Normal) Range: 0.0-30.0 Microalbumin, Urine 15.2 ug/mL (Normal) Creatinine, Urine 51.2 mg/dL (Normal) :00 URINALYSIS (57284) Comments: PATIENT WAS FASTINGPERFORMED BY: [employer]6370 [facility] [id number] Microscopic Examination See below: (Normal) Comments: Microscopic was indicated and was performed. Nitrite, Urine Negative (Normal) Urobilinogen,Semi-Qn 0.2 mg/dL (Normal) Range: 0.2-1.0 Bilirubin Negative (Normal) Occult Blood Trace (Abnormal) Ketones Negative (Normal) Glucose Negative (Normal) Protein Negative (Normal) WBC Esterase 2+ (Abnormal) Appearance Clear (Normal) Urine-Color Yellow (Normal) pH 6.0 (Normal) Range: 5.0-7.5 Specific [place] 1.010 (Normal) Range: 1.005-1.030 :00 TSH (38813) Comments: PATIENT WAS FASTINGPERFORMED BY: [facility]6370 [facility] [id number] TSH 3.850 {uIU/mL} (Normal) Range: 0.450-4.500 5-Ijh-771454:00 CBC, Platelets & Auto Diff Comments: PATIENT WAS FASTINGPERFORMED BY: [facility]6370 [facility] [id number] (07180) Immature Grans (Abs) 0.0 {x10E3/uL} (Normal) Range: 0.0-0.1 Immature Granulocytes 0 % (Normal) Baso (Absolute) 0.0 {x10E3/uL} (Normal) Range: 0.0-0.2 Eos (Absolute) 0.1 {x10E3/uL} (Normal) Range: 0.0-0.4 Monocytes(Absolute) 0.4 {x10E3/uL} (Normal) Range: 0.1-0.9 Lymphs (Absolute) 1.5 {x10E3/uL} (Normal) Range: 0.7-3.1 Neutrophils (Absolute) 6.8 {x10E3/uL} (Normal) Range: 1.4-7.0 Basos 1 % (Normal) Eos 1 % (Normal) Monocytes 4 % (Normal) Lymphs 17 % (Normal) Neutrophils 77 % (Normal) Platelets 442 {x10E3/uL} (Abnormal) Range: 150-379 RDW 16.8 % (Abnormal) Range: 12.3-15.4 MCHC 30.5 g/dL (Abnormal) Range: 31.5-35.7 MCH 27.2 pg (Normal) Range: 26.6-33.0 MCV 89 fL (Normal) Range: 79-97 Hematocrit 30.8 % (Abnormal) Range: 34.0-46.6 Hemoglobin 9.4 g/dL (Abnormal) Range: 11.1-15.9 RBC 3.45 {x10E6/uL} (Abnormal) Range: 3.77-5.28 WBC 8.8 {x10E3/uL} (Normal) Range: 3.4-10.8 2-Zez-967963:00 Metabolic Panel, Comprehensive Comments: PATIENT WAS FASTINGPERFORMED BY: [facility]6370 [facility] [id number] (42127) ALT (SGPT) 24 [iU]/L (Normal) Range: 0-32 AST (SGOT) 24 [iU]/L (Normal) Range: 0-40 Alkaline Phosphatase, S 85 [iU]/L (Normal) Range: 39-117 Bilirubin, Total 0.4 mg/dL (Normal) Range: 0.0-1.2 A/G Ratio 1.2 (Normal) Range: 1.2-2.2 Globulin, Total 3.4 g/dL (Normal) Range: 1.5-4.5 Albumin, Serum 4.0 g/dL (Normal) Range: 3.5-4.8 Protein, Total, Serum 7.4 g/dL (Normal) Range: 6.0-8.5 Calcium, Serum 10.2 mg/dL (Normal) Range: 8.7-10.3 Carbon Dioxide, Total 18 mmol/L (Normal) Range: 18-29 Chloride, Serum 103 mmol/L (Normal) Range: 96-106 Potassium, Serum 5.9 mmol/L (Abnormal) Range: 3.5-5.2 Comments: Client Requested Flag Sodium, Serum 140 mmol/L (Normal) Range: 134-144 BUN/Creatinine Ratio 18 (Normal) Range: 12-28 eGFR If Africn Am 51 mL/min/1.73 (Abnormal) eGFR If NonAfricn Am 44 mL/min/1.73 (Abnormal) Creatinine, Serum 1.21 mg/dL (Abnormal) Range: 0.57-1.00 BUN 22 mg/dL (Normal) Range: 8-27 Glucose, Serum 106 mg/dL (Abnormal) Range: 65-99 82-Tiq-16958:10 CBC W/Diff, Automated Comments: [facility] [address] [place], [place], [id number] Absolute Lymph 1.29 {X10_3/ul} (Normal) Range: 0.83-4.51 Absolute Neut 6.1 {X10_3/uL} (Normal) Range: 2.0-7.7 IM GRAN % 0.100 % (Normal) Range: 0.0-0.9 Comments: IG% - Immature Granulocytes (promyelocytes, myelocytes andmetamyelocytes) > 1% indicates that a LEFT SHIFT is Present. BASO% 0.3 % (Normal) Range: 0-1 EO% 1.6 % (Normal) Range: 0-5 MONO% 4.9 % (Normal) Range: 0-10 LY% 16.2 % (Abnormal) Range: 19-41 NEUT% 76.9 % (Abnormal) Range: 47-70 MPV 12.0 fL (Normal) Range: 6.2-12.0 PLT 267 K/mm3 (Normal) Range: 150-450 RDW SD 55.5 fL (Abnormal) Range: 35.1-43.9 RDW CV 15.9 % (Abnormal) Range: 11.6-14.6 MCHC 28.7 {g/gl} (Abnormal) Range: 32-36 MCH 27.6 pg (Normal) Range: 27.0-32.0 MCV 96.0 fL (Normal) Range: 81-99 HCT 33.4 % (Abnormal) Range: 37-47 HGB 9.6 g/dL (Abnormal) Range: 12.0-15.0 RBC 3.48 {M/mm3} (Abnormal) Range: 4.2-5.4 WBC 8.0 K/mm3 (Normal) Range: 4.4-11.0 :08 HgA1C , Office (65745) HgA1C , Office 5.5 % (Normal) Range: 4.6 - 7.1 :08 Blood Glucose , Office (18194) Blood Glucose , Office 155 (Normal) 9-Bjh-304633:25 BNP,B-Type NATRIURETIC PEPTIDE Comments: [facility] [address] [place], [place], [address] ; another doc B-TYPE MARY JO PEP 147.4 pg/mL (Abnormal) Range: 0-100 :18 HgA1C , Office (70084) HgA1C , Office 6.0 % (Normal) Range: 4.6 - 7.1 :18 Blood Glucose , Office (48757) Blood Glucose , Office 109 (Normal) :21 HgA1C , Office (42710) HgA1C , Office 6.1 % (Normal) Range: 4.6 - 7.1 9-Aug-46208:21 Blood Glucose , Office (48425) Blood Glucose , Office 117 (Normal) 5-Bqk-317513:21 METABOLIC PANEL, Comments: PATIENT NOT FASTINGPERFORMED BY: [employer] [facility] [id number] Information: [id number] COMPREHENSIVE (49377) ALT (SGPT) 15 [iU]/L (Normal) Range: 0-32 AST (SGOT) 15 [iU]/L (Normal) Range: 0-40 Alkaline Phosphatase, S 79 [iU]/L (Normal) Range: 39-117 Bilirubin, Total 0.5 mg/dL (Normal) Range: 0.0-1.2 A/G Ratio 1.4 (Normal) Range: 1.1-2.5 Globulin, Total 3.1 g/dL (Normal) Range: 1.5-4.5 Albumin, Serum 4.4 g/dL (Normal) Range: 3.5-4.8 Protein, Total, Serum 7.5 g/dL (Normal) Range: 6.0-8.5 Calcium, Serum 10.1 mg/dL (Normal) Range: 8.7-10.3 Carbon Dioxide, Total 24 mmol/L (Normal) Range: 18-29 Chloride, Serum 102 mmol/L (Normal) Range: 97-108 Potassium, Serum 5.2 mmol/L (Normal) Range: 3.5-5.2 Sodium, Serum 142 mmol/L (Normal) Range: 134-144 BUN/Creatinine Ratio 22 (Normal) Range: 11-26 eGFR If Africn Am 56 mL/min/1.73 (Abnormal) eGFR If NonAfricn Am 49 mL/min/1.73 (Abnormal) Creatinine, Serum 1.13 mg/dL (Abnormal) Range: 0.57-1.00 BUN 25 mg/dL (Normal) Range: 8-27 Glucose, Serum 92 mg/dL (Normal) Range: 65-99 3-Gza-255652:21 Vitamin D Hydroxy (75354) Comments: PATIENT NOT FASTINGPERFORMED BY: [employer] [facility] ServicesLyons [facility] Medical CenterKtlkoq9042 [facility] [id number] Vitamin D, 25-Hydroxy 59.7 ng/mL (Normal) Range: 30.0-100.0 Comments: Vitamin D deficiency has been defined by the [place] of[place] and an Endocrine Society practice guideline as alevel of serum 25-OH vitamin D less than 20 ng/mL (1,2).The Endocrine Society went on to further define vitamin Dinsufficiency as a level between 21 and 29 ng/mL (2).1. IOM ([place] of [employer]). 2010. Dietary reference intakes for calcium and D. [place]: The National Academies Press.2. [place] MF, James MCGOWAN, Dolores MARTINEZ, et al. Evaluation, treatment, and prevention of vitamin D deficiency: an Endocrine Society clinical practice guideline. JCEM. 2010; 96(7):1911-30. -:06 HgA1C , Office (35259) HgA1C , Office 6.0 % (Normal) Range: 4.6 - 7.1 :15 HgA1C , Office (91719) HgA1C , Office 6.4 % (Normal) Range: 4.6 - 7.1 :31 HgA1C , Office (17731) HgA1C , Office 6.0 % (Normal) Range: 4.6 - 7.1 :04 HgA1C , Office (46441) HgA1C , Office 6.0 % (Normal) Range: 4.6 - 7.1 :09 HgA1C , Office (17266) HgA1C , Office 6.0 % (Normal) Range: 4.6 - 7.1 :32 HgA1C , Office (49594) HgA1C , Office 6.2 % (Normal) Range: 4.6 - 7.1 :24 HgA1C , Office (45812) HgA1C , Office 6.2 % (Normal) Range: 4.6 - 7.1 :59 PT (Prothrobim Time) Comments: PATIENT NOT FASTINGPERFORMED BY: [employer] Eiwmtg0624 [facility] [id number] Information: [id number] (31200) Prothrombin Time 25.2 {sec} (Abnormal) Range: 9.1-12.0 INR 2.4 (Abnormal) Range: 0.8-1.2 Comments: Reference interval is for non-anticoagulated patients. . Suggested INR therapeutic range for Vitamin K anta gonist therapy: Standard Dose (moderate intensity therapeutic range): 2.0 - 3.0 Higher intensity therapeutic range 2.5 - 3.5 :22 PT (Prothrobim Time) Comments: PATIENT NOT FASTINGPERFORMED BY: [place] [id number] [facility] [id number] Information: [id number] (62022) Prothrombin Time 22.4 {sec} (Abnormal) Range: 9.1-12.0 INR 2.2 (Abnormal) Range: 0.8-1.2 Comments: Reference interval is for non-anticoagulated patients. . Suggested INR therapeutic range for Vitamin K anta gonist therapy: Standard Dose (moderate intensity therapeutic range): 2.0 - 3.0 Higher intensity therapeutic range 2.5 - 3.5 20-Qbo-275687:39 HgA1C , Office (25468) HgA1C , Office 6.5 % (Normal) Range: 4.6 - 7.1 18-Twg-927970:37 PT (Prothrobim Time) Comments: PATIENT NOT FASTINGPERFORMED BY: [place] [id number] [facility] [id number] Information: [id number] ([id number]) Prothrombin Time 20.7 {sec} (Abnormal) Range: 9.1-12.0 INR 1.9 (Abnormal) Range: 0.8-1.2 Comments: Reference interval is for non-anticoagulated patients. . Suggested INR therapeutic range for Vitamin K anta gonist therapy: Standard Dose (moderate intensity therapeutic range): 2.0 - 3.0 Higher intensity therapeutic range 2.5 - 3.5 39-Qxr-093787:34 BNTP (92683) Comments: PATIENT NOT FASTINGPERFORMED BY: [place] [id number] [facility] [id number] B-Type Natriuretic Peptide 156.2 pg/mL (Abnormal) Range: 0.0-100.0 87-Nim-071533:34 PT (Prothrobim Time) (13615) Comments: PATIENT NOT FASTINGPERFORMED BY: [facility] [id number] Prothrombin Time 13.1 {sec} (Abnormal) Range: 9.1-12.0 INR 1.3 (Abnormal) Range: 0.8-1.2 Comments: Reference interval is for non-anticoagulated patients. . Suggested INR therapeutic range for Vitamin K anta gonist therapy: Standard Dose (moderate intensity therapeutic range): 2.0 - 3.0 Higher intensity therapeutic range 2.5 - 3.5 19-Oph-552011:34 CULTURE, SPUTUM (38880) Comments: PATIENT NOT FASTINGPERFORMED BY: [facility] [id number] Lower Respiratory Culture Final report (Normal) Result 1 RRF (Normal) Comments: Routine respiratory anisa 02-Dnr-959918:20 PT (Prothrobim Time) Comments: PATIENT NOT FASTINGPERFORMED BY: [facility] [id number] Information: [id number] ([id number]) Prothrombin Time 21.0 {sec} (Abnormal) Range: 9.1-12.0 INR 2.0 (Abnormal) Range: 0.8-1.2 Comments: Reference interval is for non-anticoagulated patients. . Suggested INR therapeutic range for Vitamin K anta gonist therapy: Standard Dose (moderate intensity therapeutic range): 2.0 - 3.0 Higher intensity therapeutic range 2.5 - 3.5 37-Qvh-192233:11 PT (Prothrobim Time) Comments: PATIENT NOT FASTINGPERFORMED BY: [facility] [id number] Information: [id number] ([id number]) Prothrombin Time 15.3 {sec} (Abnormal) Range: 9.1-12.0 INR 1.5 (Abnormal) Range: 0.8-1.2 Comments: Reference interval is for non-anticoagulated patients. . Suggested INR therapeutic range for Vitamin K anta gonist therapy: Standard Dose (moderate intensity therapeutic range): 2.0 - 3.0 Higher intensity therapeutic range 2.5 - 3.5 :45 HgA1C , Office (15232) HgA1C , Office 6.5 % (Normal) Range: 4.6 - 7.1 :18 PT (Prothrobim Time) Comments: PATIENT NOT FASTINGPERFORMED BY: [facility] [id number] Information: [id number] ([id number]) Prothrombin Time 20.0 {sec} (Abnormal) Range: 9.1-12.0 INR 1.9 (Abnormal) Range: 0.8-1.2 Comments: Reference interval is for non-anticoagulated patients. . Suggested INR therapeutic range for Vitamin K anta gonist therapy: Standard Dose (moderate intensity therapeutic range): 2.0 - 3.0 Higher intensity therapeutic range 2.5 - 3.5 :24 HgA1C , Office (64890) HgA1C , Office 6.1 % (Normal) Range: 4.6 - 7.1 :53 HgA1C , Office (94452) HgA1C , Office 6.2 % (Normal) Range: 4.6 - 7.1 :05 CBC WITH MANUAL DIFF Comments: today; PATIENT NOT FASTINGPERFORMED BY: [place] [id number] [facility] [id number] Information: [id number] (55849) Hematology Comments: Note: (Normal) Comments: Verified by microscopic examination. Immature Grans (Abs) 0.0 {x10E3/uL} (Normal) Range: 0.0-0.1 Immature Granulocytes 0 % (Normal) Range: 0-2 Baso (Absolute) 0.2 {x10E3/uL} (Normal) Range: 0.0-0.2 Eos (Absolute) 0.1 {x10E3/uL} (Normal) Range: 0.0-0.4 Monocytes(Absolute) 0.6 {x10E3/uL} (Normal) Range: 0.1-1.0 Lymphs (Absolute) 2.8 {x10E3/uL} (Normal) Range: 0.7-4.5 Neutrophils (Absolute) 5.5 {x10E3/uL} (Normal) Range: 1.8-7.8 Basos 2 % (Normal) Range: 0-3 Eos 2 % (Normal) Range: 0-7 Monocytes 7 % (Normal) Range: 4-13 Lymphs 31 % (Normal) Range: 14-46 Neutrophils 58 % (Normal) Range: 40-74 Platelets 221 {x10E3/uL} (Normal) Range: 140-415 RDW 15.2 % (Normal) Range: 12.3-15.4 MCHC 32.6 g/dL (Normal) Range: 31.5-35.7 MCH 29.1 pg (Normal) Range: 26.6-33.0 MCV 89 fL (Normal) Range: 79-97 Hematocrit 37.7 % (Normal) Range: 34.0-46.6 Hemoglobin 12.3 g/dL (Normal) Range: 11.1-15.9 RBC 4.22 {x10E6/uL} (Normal) Range: 3.77-5.28 WBC 9.2 {x10E3/uL} (Normal) Range: 4.0-10.5 30-Ecf-421251:30 HgA1C , Office (44155) HgA1C , Office 6.1 % (Normal) Range: 4.6 - 7.1 04-Yhv-026145:33 PT (Prothrobim Time) Comments: PATIENT NOT FASTINGPERFORMED BY: [place] [id number] [facility] [id number] Information: [id number] (39562) Prothrombin Time 17.9 {sec} (Abnormal) Range: 9.1-12.0 INR 1.7 (Abnormal) Range: 0.8-1.2 Comments: Reference interval is for non-anticoagulated patients. . Suggested INR therapeutic range for Vitamin K anta gonist therapy: Standard Dose (moderate intensity therapeutic range): 2.0 - 3.0 Higher intensity therapeutic range 2.5 - 3.5 41-Yvz-596904:27 PT (Prothrobim Time) Comments: PATIENT NOT FASTINGPERFORMED BY: [facility]6370 [facility] [id number] Information: [id number] (30462) Prothrombin Time 26.3 {sec} (Abnormal) Range: 9.1-12.0 INR 2.6 (Abnormal) Range: 0.8-1.2 Comments: Reference interval is for non-anticoagulated patients. . Suggested INR therapeutic range for Vitamin K anta gonist therapy: Standard Dose (moderate intensity therapeutic range): 2.0 - 3.0 Higher intensity therapeutic range 2.5 - 3.5 6-Bbn-918576:01 BILAT SCRN DIGITAL & CAD Radiology Report See Note (Normal) Comments: MAMMOGRAPHY - BILATERAL SCREENING REASON FOR EXAM: Female, 67 years old. Routine annual screeningexamination. PERTINENT HISTORY: Non-contributory. TECHNIQUE: Digital examination. Med iolateral ob lique (MLO) andcraniocaudad (CC) views of both breasts were obtained. CAD: CAD wasperformed on this study. COMPARISON: Comparison is made with prior studies dated July 20nd July 18, 2010. FINDINGS:The breast composition is heterogeneously dense. There are no dominant masses or suspicious calcifications. No other significant abnormalities are identified. There has been nosignificant syd nge since the prior study. IMPRESSION:Stable bilateral screening mammogram. Yearly follow-up recommended. (A) ASSESSMENT CATEGORY:BIRADS Category 2: Benign finding(s). A letter regarding these resu ltswill be sent to the patient by the facility within 30 days. Approximately 10% of breast cancers are not detected by mammography. Anormal mammogram should not delay biopsy of a clinically suspiciousa bnormality. Signed:Irvin Cho M.D.July 25, 2012 at 11:23:11 AM [phone] Signed GP/GP If you are the referring physician and would like to consult with theradiologist who provided this interpretation, please contact Clinton Ignacio at [phone]. If this radiologist is unavailable, youwill be directed to another radiologist to assist. If you are a patient with a question regarding this report, pleasecontactyour referring physician directly. Professional Interpretation Provided By: [employer], Phone , These documents contain leg ally protected and confidential healthinformation intended only for the use of the individual or entity namedabove. If you are not the intended recipient, you are hereby notifiedthatany disclosure, copy ing, distribution, or other use of these documents isstrictly prohibited. If you have received this information in error,pleasenotify the sender immediately and arrange for the return or destructionofth keny documents. Dictated on 07/25/12 1001 by Jerry BALDWIN,TylerrieleTranscribed on 07/25/12 1127 by ITS IMPORTSign by Jerry BALDWIN,Irvin on 07/25/12 1128 Sign by: Irvin Cho MD 83-Yim-179632:44 HgA1C , Office (77968) HgA1C , Office 6.6 % (Normal) Range: 4.6 - 7.1 :44 Blood Glucose , Office (65534) Blood Glucose , Office 101 (Normal) :02 PT (Prothrobim Time) Comments: standing order; PATIENT NOT FASTINGPERFORMED BY: [facility]6370 [facility] [id number] Information: [id number] (80235) Prothrombin Time 20.6 {sec} (Abnormal) Range: 9.1-12.0 INR 2.0 (Abnormal) Range: 0.8-1.2 Comments: Reference interval is for non-anticoagulated patients. . Suggested INR therapeutic range for Vitamin K anta gonist therapy: Standard Dose (moderate intensity therapeutic range): 2.0 - 3.0 Higher intensity therapeutic range 2.5 - 3.5 30-Spv-698987:09 HgA1C , Office (51511) HgA1C , Office 6.1 % (Normal) Range: 4.6 - 7.1 40-Bln-02360:00 Prothrombin Time (PT) Comments: PATIENT NOT FASTINGPERFORMED BY: [facility]6370 [facility] [id number] Prothrombin Time 21.7 {sec} (Abnormal) Range: 9.1-12.0 INR 2.1 (Abnormal) Range: 0.8-1.2 Comments: Reference interval is for non-anticoagulated patients. . Suggested INR therapeutic range for Vitamin K anta gonist therapy: Standard Dose (moderate intensity therapeutic range): 2.0 - 3.0 Higher intensity therapeutic range 2.5 - 3.5 :42 PT (PROTHROMBIN TIME) Comments: PATIENT NOT FASTINGPERFORMED BY: [facility]6370 [facility] [id number] Information: [id number] ([id number]) Prothrombin Time 18.7 {sec} (Abnormal) Range: 9.1-12.0 INR 1.8 (Abnormal) Range: 0.8-1.2 Comments: Reference interval is for non-anticoagulated patients. . Suggested INR therapeutic range for Vitamin K anta gonist therapy: Standard Dose (moderate intensity therapeutic range): 2.0 - 3.0 Higher intensity therapeutic range 2.5 - 3.5 84-Ukj-10518:06 PT (PROTHROMBIN TIME) Comments: PATIENT NOT FASTINGPERFORMED BY: [place] [id number] [facility] [id number] Information: [id number] (10849) Prothrombin Time 21.7 {sec} (Abnormal) Range: 9.1-12.0 INR 2.0 (Abnormal) Range: 0.8-1.2 Comments: Reference interval is for non-anticoagulated patients. . Suggested INR therapeutic range for Vitamin K anta gonist therapy: Standard Dose (moderate intensity therapeutic range): 2.0 - 3.0 Higher intensity therapeutic range 2.5 - 3.5 21-Wor-021099:01 ERYTHROPOIETIN (64335) Comments: PATIENT NOT FASTINGPERFORMED BY: [facility]6370 [facility] [id number] Erythropoietin 38.7 m[iU]/mL (Abnormal) Range: 4.2-27.8 12-Mie-610662:01 Vitamin D Hydroxy (95045) Comments: PATIENT NOT FASTINGPERFORMED BY: [place] [id number] [facility] [id number] Vitamin D, 25-Hydroxy 52.5 ng/mL (Normal) Range: 30.0-100.0 Comments: Vitamin D deficiency has been defined by the [place] ofMedicine and an Endocrine Society practice guideline as alevel of serum 25-OH vitamin D less than 20 ng/mL (1,2).The Endocrine Society went on to further define vitamin Dinsufficiency as a level between 21 and 29 ng/mL (2).1. IOM ([place] of Medicine). 2010. Dietary reference intakes for calcium and D. [place]: The National Academies Press.2. [place] MF, James MCGOWAN, Dolores MARTINEZ, et al. Evaluation, treatment, and prevention of vitamin D deficiency: an Endocrine Society clinical practice guideline. JCEM. 2010; 96(7):1911-30. 40-Vao-418091:01 VITAMIN B-12 (CYANOCOBALAMIN) Comments: PATIENT NOT FASTINGPERFORMED BY: [employer] [facility] [id number] (50879) Vitamin B12 779 pg/mL (Normal) Range: 211-946 46-Khr-444182:01 RETICULOCYTE COUNT MANUL Comments: PATIENT NOT FASTINGPERFORMED BY: CB Stream Global Servicesrp Jexcxd1984 [address] [facility] [id number] (75972) Reticulocyte Count 1.9 % (Normal) Range: 0.5-3.0 26-Ofq-508934:01 LDH (LD) (LACTATE DEHYDROGENASE) Comments: PATIENT NOT FASTINGPERFORMED BY: [employer] Pnvcrn4251 [address] [facility] [id number] (43487) LDH 174 [iU]/L (Normal) Range: 0-214 77-Ber-853065:01 IRON BINDING CAPACITY Comments: PATIENT NOT FASTINGPERFORMED BY: [employer] Gepvmj8784 [facility] [id number] Information: [id number] (TIBC) (36047) Iron Saturation 9 % (Abnormal) Range: 15-55 Iron, Serum 35 ug/dL (Normal) Range: 35-155 UIBC 355 ug/dL (Normal) Range: 150-375 Iron Bind.Cap.(TIBC) 390 ug/dL (Normal) Range: 250-450 14-Lyd-509545:01 FERRITIN (52341) Comments: PATIENT NOT FASTINGPERFORMED BY: [facility]6370 [facility] [id number] Ferritin, Serum 59 ng/mL (Normal) Range: 13-150 :47 HgA1C , Office (74319) HgA1C , Office 6.2 % (Normal) Range: 4.6 - 7.1 :48 Prothrombin Time (PT) Comments: PERFORMED BY: [place] [id number] [facility] [id number] Prothrombin Time 20.1 {sec} (Abnormal) Range: 9.1-12.0 Comments: Please note reference interval change INR 1.9 (Abnormal) Range: 0.8-1.2 Comments: Reference interval is for non-anticoagulated patients. . Suggested INR therapeutic range for Vitamin K anta gonist therapy: Standard Dose (moderate intensity therapeutic range): 2.0 - 3.0 Higher intensity therapeutic range 2.5 - 3.5 :56 HgA1C , Office (83022) HgA1C , Office 6.4 % (Normal) Range: 4.6 - 7.1 :56 Blood Glucose , Office (13546) Blood Glucose , Office 111 (Normal) :48 PT (PROTHROMBIN TIME) Comments: PATIENT NOT FASTINGPERFORMED BY: [facility]6370 [facility] [id number] Information: [id number] (70556) Prothrombin Time 28.0 {sec} (Abnormal) Range: 9.1-12.0 Comments: Please note reference interval change INR 2.6 (Abnormal) Range: 0.8-1.2 Comments: Reference interval is for non-anticoagulated patients. . Suggested INR therapeutic range for Vitamin K anta gonist therapy: Standard Dose (moderate intensity therapeutic range): 2.0 - 3.0 Higher intensity therapeutic range 2.5 - 3.5 6-Vxk-568289:42 BILAT SCRN DIGITAL & CAD Radiology Report See Note (Normal) Comments: MAMMOGRAPHY - BILATERAL SCREENING REASON FOR EXAM: Female, 66 years old. Routine annual screeningexamination. PERTINENT HISTORY: Non-contributory. TECHNIQUE: Digital examination. Med iolateral ob lique (MLO) andcraniocaudad (CC) views of both breasts were obtained. CAD: CAD wasperformed on this study. COMPARISON: Comparison is made with prior examination dated June. FINDINGS:The br east composition is composed of scattered fibroglandular densities. There are no masses or suspicious microcalcifications. Two small nodulesare seen in the upper outer aspect of the right breast. Thes e areunchanged and most likely represent small lymph nodes. No other significant abnormalities are identified. There has been nosignificant change since the prior study. IMPRESSION:Normal bilateral scr eening mammogram. One year follow-up recommended. (A) ASSESSMENT CATEGORY:BIRADS Category 2: Benign finding(s). A letter regarding these resultswill be sent to the patient by the facility within 30 d ays. Approximately 10% of breast cancers are not detected by mammography. Anormal mammogram should not delay biopsy of a clinically suspiciousabnormality. Dictated on 07/20/11 1222 by Rere Cho MD abrieleTranscribed on 07/20/11 1304 by ITS IMPORTSign by Irvin Cho MD on 07/20/11 1305 Sign by: Irvin Cho MD 6-Vkc-203250:14 PT (PROTHROMBIN TIME) Comments: PATIENT NOT FASTINGPERFORMED BY: [employer]6370 [facility] [id number] Information: [id number] (77043) Prothrombin Time 37.0 {sec} (Abnormal) Range: 9.1-12.0 Comments: Please note reference interval change INR 3.5 (Abnormal) Range: 0.8-1.2 Comments: Reference interval is for non-anticoagulated patients. . Suggested INR therapeutic range for Vitamin K anta gonist therapy: Standard Dose (moderate intensity therapeutic range): 2.0 - 3.0 Higher intensity therapeutic range 2.5 - 3.5 1-Gmz-239102:15 URIC ACID BLOOD (96836) Comments: PATIENT NOT FASTINGPERFORMED BY: [employer] Global ServicesLyons VA Medical CenterQiouxq7108 [place] [facility]Nov[facility] [id number] Information: [id number],2ND ORDER Uric Acid, Serum 5.3 mg/dL (Normal) Range: 2.5-7.1 Comments: Therapeutic target for gout patients: <6.0 43-Pwl-677839:26 FECAL OCCULT- Tubes sent home (34008) FECAL OCCULT HGB ASSAY, QUAL, 1-3 SIMULTANEOU negative (Normal) 25-Mou-379899:37 FERRITIN (94993) Comments: PATIENT NOT FASTINGPERFORMED BY: [employer] Uaogvf6[address] Roadbl[address] [place] [id number] Ferritin, Serum 109 ng/mL (Normal) Range: 13-150 08-Xpw-557714:37 IRON (14913) Comments: PATIENT NOT FASTINGPERFORMED BY: [employer]6[address]-Sightbl[place] [id number] Iron, Serum 46 ug/dL (Normal) Range: 35-155 30-Owi-038826:37 FOLIC ACID SERUM (93027) Comments: PATIENT NOT FASTINGPERFORMED BY: [employer] Prezqa[address] [facility]ightAt[facility]parkin [place] [id number] Folate (Folic Acid), Serum >19.9 ng/mL (Normal) Comments: Indeterminate: 2.2 - 3.0 Deficient: <2.2 56-Cqt-483836:37 RETICULOCYTE COUNT MANUL Comments: PATIENT NOT FASTINGPERFORMED BY: [employer]6[address] D-[facility]ightAt[facility] Health [place]parkin [place] [id number] (89731) Reticulocyte Count 1.6 % (Normal) Range: 0.5-3.0 69-Xrj-262163:37 LDH (LD) (LACTATE DEHYDROGENASE) Comments: PATIENT NOT FASTINGPERFORMED BY: [employer] Lcildh7787 [address] [facility] [place] [id number] (78179) LDH 179 [iU]/L (Normal) Range: 0-214 69-Nln-945803:37 VITAMIN B-12 (CYANOCOBALAMIN) Comments: PATIENT NOT FASTINGPERFORMED BY: [employer] Xdcvvt7580 [address] [facility]in [place] [id number] (76261) Vitamin B12 668 pg/mL (Normal) Range: 211-946 79-Jhn-083286:37 TSH (16066) Comments: PATIENT NOT FASTINGPERFORMED BY: LabCoLyons VA Medical CenterHqqqrq5101 [facility] [id number] TSH 2.500 {uIU/mL} (Normal) Range: 0.450-4.500 63-Qrp-878280:37 CBC WITH MANUAL DIFF Comments: PATIENT NOT FASTINGPERFORMED BY: LabCoLyons VA Medical CenterIoilke3885 [facility] [id number] Information: [id number] (78696) Immature Grans (Abs) 0.0 {x10E3/uL} (Normal) Range: 0.0-0.1 Immature Granulocytes 0 % (Normal) Range: 0-2 Baso (Absolute) 0.0 {x10E3/uL} (Normal) Range: 0.0-0.2 Eos (Absolute) 0.1 {x10E3/uL} (Normal) Range: 0.0-0.4 Monocytes(Absolute) 0.5 {x10E3/uL} (Normal) Range: 0.1-1.0 Lymphs (Absolute) 2.1 {x10E3/uL} (Normal) Range: 0.7-4.5 Neutrophils (Absolute) 7.0 {x10E3/uL} (Normal) Range: 1.8-7.8 Basos 0 % (Normal) Range: 0-3 Eos 1 % (Normal) Range: 0-7 Monocytes 5 % (Normal) Range: 4-13 Lymphs 22 % (Normal) Range: 14-46 Neutrophils 72 % (Normal) Range: 40-74 Platelets 300 {x10E3/uL} (Normal) Range: 140-415 RDW 15.4 % (Abnormal) Range: 11.7-15.0 MCHC 31.3 g/dL (Abnormal) Range: 32.0-36.0 MCH 28.1 pg (Normal) Range: 27.0-34.0 MCV 90 fL (Normal) Range: 80-98 Hematocrit 35.5 % (Normal) Range: 34.0-44.0 Hemoglobin 11.1 g/dL (Abnormal) Range: 11.5-15.0 RBC 3.95 {x10E6/uL} (Normal) Range: 3.80-5.10 WBC 9.7 {x10E3/uL} (Normal) Range: 4.0-10.5 :37 Uric Acid Blood (33544) Comments: PATIENT NOT FASTINGPERFORMED BY: YAO [facility]6370 [facility] [id number] Uric Acid, Serum 10.0 mg/dL (Abnormal) Range: 2.5-7.1 Comments: Therapeutic target for gout patients: <6.0 :45 Blood Glucose , Office (48820) Blood Glucose , Office 101 (Normal) :45 HgA1C , Office (38761) HgA1C , Office 6.3 % (Normal) Range: 4.6 - 7.1 :25 PT (Prothrobim Time) Comments: Protime/INR Standing Order; PATIENT NOT FASTINGPERFORMED BY: YAO [place] 5891670 [facility] [id number] Information: [id number] (80162) Prothrombin Time 28.9 {sec} (Abnormal) Range: 8.7-11.5 INR 2.7 (Abnormal) Range: 0.8-1.2 Comments: Reference interval is for non-anticoagulated patients. . Suggested INR therapeutic range for Vitamin K anta gonist therapy: Standard Dose (moderate intensity therapeutic range): 2.0 - 3.0 Higher intensity therapeutic range 2.5 - 3.5 :28 PT (PROTHROMBIN TIME) Comments: PATIENT NOT FASTINGPERFORMED BY: Y[facility]6370 [facility] [id number] Information: [id number] (46593) Prothrombin Time 24.6 {sec} (Abnormal) Range: 8.7-11.5 INR 2.3 (Abnormal) Range: 0.8-1.2 Comments: Reference interval is for non-anticoagulated patients. . Suggested INR therapeutic range for Vitamin K anta gonist therapy: Standard Dose (moderate intensity therapeutic range): 2.0 - 3.0 Higher intensity therapeutic range 2.5 - 3.5 : Potassium, Serum 5.2 mmol/L (Normal) Comments: PERFORMED BY: YAO [address] [place] [id number] Range: 3.5-5.2 9-Bmx-679850:42 Prothrombin Time (PT) Comments: PERFORMED BY: [facility]6370 [facility] [id number] Prothrombin Time 12.8 {sec} (Abnormal) Range: 8.7-11.5 INR 1.2 (Normal) Range: 0.8-1.2 Comments: Reference interval is for non-anticoagulated patients. . Suggested INR therapeutic range for Vitamin K anta gonist therapy: Standard Dose (moderate intensity therapeutic range): 2.0 - 3.0 Higher intensity therapeutic range 2.5 - 3.5 90-Aoz-397902:08 Prothrombin Time (PT) Comments: PERFORMED BY: [facility]6370 [facility] [id number] Prothrombin Time 19.2 {sec} (Abnormal) Range: 8.7-11.5 INR 1.8 (Abnormal) Range: 0.8-1.2 Comments: Reference interval is for non-anticoagulated patients. . Suggested INR therapeutic range for Vitamin K anta gonist therapy: Standard Dose (moderate intensity therapeutic range): 2.0 - 3.0 Higher intensity therapeutic range 2.5 - 3.5 :19 Vitamin D Hydroxy (30220) Comments: PATIENT WAS FASTINGPERFORMED BY: [facility]6370 [facility] [id number] Vitamin D, 25-Hydroxy 43.1 ng/mL (Normal) Range: 32.0-100.0 Comments: Effective July 09, 2011 Vitamin D, 25-Hydroxy reference intervals will be changing to 30-100. .Recent studies consider the lower li osbaldo of 32.0 ng/mL to be athreshold for optimal health.Ye JARVIS. J Nutr. 2004;135(2):317-22. :19 MICROALBUMIN: CREATININE RATIO Comments: PATIENT WAS FASTINGPERFORMED BY: [place] 3646470 [facility] [id number] (97752) AND (41020) Microalb/Creat Ratio 24.6 {mg/g_creat} (Normal) Range: 0.0-30.0 Creatinine, Urine 23.6 mg/dL (Normal) Range: 15.0-278.0 Microalbumin, Urine 5.8 ug/mL (Normal) Range: 0.0-17.0 :19 LIPID PANEL (29283) Comments: PATIENT WAS FASTINGPERFORMED BY: [employer] Hlamzi7473 [facility] [id number] LDL/HDL Ratio 1.5 {ratio_units} (Normal) Range: 0.0-3.2 LDL Cholesterol Calc 55 mg/dL (Normal) Range: 0-99 VLDL Cholesterol Maricruz 40 mg/dL (Normal) Range: 5-40 HDL Cholesterol 37 mg/dL (Abnormal) Comments: According to ATP-III Guidelines, HDL-C >59 mg/dL is considered anegative risk factor for CHD. Triglycerides 200 mg/dL (Abnormal) Range: 0-149 Cholesterol, Total 132 mg/dL (Normal) Range: 100-199 :19 CBC WITH MANUAL DIFF Comments: PATIENT WAS FASTINGPERFORMED BY: [employer] Testqq9274 [facility] [id number] Information: [id number] CC:[id number] (49547) Immature Grans (Abs) 0.0 {x10E3/uL} (Normal) Range: 0.0-0.1 Immature Granulocytes 0 % (Normal) Range: 0-2 Baso (Absolute) 0.0 {x10E3/uL} (Normal) Range: 0.0-0.2 Eos (Absolute) 0.2 {x10E3/uL} (Normal) Range: 0.0-0.4 Monocytes(Absolute) 0.4 {x10E3/uL} (Normal) Range: 0.1-1.0 Lymphs (Absolute) 2.1 {x10E3/uL} (Normal) Range: 0.7-4.5 Neutrophils (Absolute) 5.5 {x10E3/uL} (Normal) Range: 1.8-7.8 Basos 0 % (Normal) Range: 0-3 Eos 2 % (Normal) Range: 0-7 Monocytes 5 % (Normal) Range: 4-13 Lymphs 26 % (Normal) Range: 14-46 Neutrophils 67 % (Normal) Range: 40-74 Platelets 231 {x10E3/uL} (Normal) Range: 140-415 RDW 15.7 % (Abnormal) Range: 11.7-15.0 MCHC 30.5 g/dL (Abnormal) Range: 32.0-36.0 MCH 28.2 pg (Normal) Range: 27.0-34.0 MCV 92 fL (Normal) Range: 80-98 Hematocrit 35.7 % (Normal) Range: 34.0-44.0 Hemoglobin 10.9 g/dL (Abnormal) Range: 11.5-15.0 RBC 3.87 {x10E6/uL} (Normal) Range: 3.80-5.10 WBC 8.2 {x10E3/uL} (Normal) Range: 4.0-10.5 :19 METABOLIC PANEL, COMPREHENSIVE Comments: PATIENT WAS FASTINGPERFORMED BY: [facility] Edardi1739 [facility] [id number]; appt 06/05/11 (11920) ALT (SGPT) 16 [iU]/L (Normal) Range: 0-40 AST (SGOT) 16 [iU]/L (Normal) Range: 0-40 Alkaline Phosphatase, S 70 [iU]/L (Normal) Range: 25-165 Bilirubin, Total 0.3 mg/dL (Normal) Range: 0.0-1.2 A/G Ratio 1.5 (Normal) Range: 1.1-2.5 Globulin, Total 2.9 g/dL (Normal) Range: 1.5-4.5 Albumin, Serum 4.3 g/dL (Normal) Range: 3.6-4.8 Protein, Total, Serum 7.2 g/dL (Normal) Range: 6.0-8.5 Calcium, Serum 9.8 mg/dL (Normal) Range: 8.6-10.2 Carbon Dioxide, Total 23 mmol/L (Normal) Range: 20-32 Chloride, Serum 107 mmol/L (Normal) Range: 97-108 Potassium, Serum 5.0 mmol/L (Normal) Range: 3.5-5.2 Sodium, Serum 141 mmol/L (Normal) Range: 135-145 BUN/Creatinine Ratio 21 (Normal) Range: 11-26 eGFR If Africn Am 51 mL/min/1.73 (Abnormal) Comments: Note: A persistent eGFR <60 mL/min/1.73 m2 (3 months or more) mayindicate chronic kidney disease. An eGFR >59 mL/min/1.73 m2 with anelevated urine protein also may indicate chronic kidney disease.Calculated using CKD-EPI formula. eGFR If NonAfricn Am 44 mL/min/1.73 (Abnormal) Creatinine, Serum 1.26 mg/dL (Abnormal) Range: 0.57-1.00 BUN 26 mg/dL (Normal) Range: 8-27 Glucose, Serum 99 mg/dL (Normal) Range: 65-99 :59 Blood Glucose , Office (13711) Blood Glucose , Office 129 (Normal) :04 Prothrombin Time (PT) Comments: PERFORMED BY: YAO [facility]3GSc[facility]land [facility] Hospital [id number] Prothrombin Time 25.1 {sec} (Abnormal) Range: 8.7-11.5 INR 2.4 (Abnormal) Range: 0.8-1.2 Comments: Reference interval is for non-anticoagulated patients. . Suggested INR therapeutic range for Vitamin K anta gonist therapy: Standard Dose (moderate intensity therapeutic range): 2.0 - 3.0 Higher intensity therapeutic range 2.5 - 3.5 :34 PT (PROTHROMBIN TIME) Comments: PATIENT NOT FASTINGPERFORMED BY: YAO [employer]70 [address].fmScotland Memorial Hospital [id number] Information: [id number],NO DRAW FEE 2ND ORD ER (58690) Prothrombin Time 30.5 {sec} (Abnormal) Range: 8.7-11.5 INR 2.9 (Abnormal) Range: 0.8-1.2 Comments: Reference interval is for non-anticoagulated patients. . Suggested INR therapeutic range for Vitamin K anta gonist therapy: Standard Dose (moderate intensity therapeutic range): 2.0 - 3.0 Higher intensity therapeutic range 2.5 - 3.5 :38 Vitamin D Hydroxy (90258) Comments: today and 3 mos; PATIENT NOT FASTINGPERFORMED BY: [employer] GigstarterScotland Memorial Hospital [id number] Information: [id number] Vitamin D, 25-Hydroxy 56.7 ng/mL (Normal) Range: 32.0-100.0 Comments: Recent studies consider the lower limit of 32.0 ng/mL to be athreshold for optimal health.Ye JARVIS. J Nutr. 2004;135(2):317-22. 78-Izi-034157:00 MICROALBUMIN: CREATININE Comments: PATIENT NOT FASTINGPERFORMED BY: LabKLabLyons VA Medical CenterMtqzyj9179 [facility] [id number] Information: [id number] RATIO (19112) AND (57648) Microalb/Creat Ratio 10.0 {mg/g_creat} (Normal) Range: 0.0-30.0 Microalbumin, Urine 4.3 ug/mL (Normal) Range: 0.0-17.0 Creatinine, Urine 43.2 mg/dL (Normal) Range: 15.0-278.0 :32 Blood Glucose , Office (80853) Blood Glucose , Office 137 (Normal) :32 HgA1C , Office (89776) HgA1C , Office 6.1 % (Normal) Range: 4.6 - 7.1 :38 Prothrombin Time (PT) Comments: PERFORMED BY: [facility]UST[facility]ahxoa7441 [facility] [id number] Prothrombin Time 26.7 {sec} (Abnormal) Range: 8.7-11.5 INR 2.5 (Abnormal) Range: 0.8-1.2 Comments: Reference interval is for non-anticoagulated patients. . Suggested INR therapeutic range for Vitamin K anta gonist therapy: Standard Dose (moderate intensity therapeutic range): 2.0 - 3.0 Higher intensity therapeutic range 2.5 - 3.5 :21 HgA1C , Office (47518) HgA1C , Office 6.0 % (Normal) Range: 4.6 - 7.1 :21 Blood Glucose , Office (71686) Blood Glucose , Office 118 (Normal) :10 DEXA BONE DENSITY STUDY (HP) Radiology Report See Note (Normal) Comments: CLINICAL:This is a 65-year-old female patient for post menopausal screening. EXAMINATION:DUAL ENERGY X-RAY ABSORPTIOMETRY / DEXA. TECHNIQUE:Bone Density Measurements (BMD) of lumbar spine and bilateral hips wereobtained using a [employer] scanner.. COMPARISON:None. FINDINGS: Lumbar Spine (L1-L4): g/cm2 (1.406) / T-score (1.9) / Z-score (2.3)Left Femur Total: g/cm2 (1.019) / T-sco re (0.1) / Z-score (0.6)Right Femur Total: g/cm2 (1.103) / T-score (0.8) / Z-score (1.2) IMPRESSION:The patient is considered normal, as outlined above, according to WorldHealth Organization (WHO ) criteria. Fracture risk is low. Reference Information:The T-score is the number of standard deviations above or below thestandard which is normal for young adults at their peak bone mineraldensity. T he World Health Organization (WHO) interprets the T-scores asfollows: Above -1 Normal bone densityBetween -1 and -2.5 OsteopeniaEqual to / or below -2.5 Osteoporosis As a practical clinica l guideline, osteopenia may be graded as follows:Mild -1 through -1.5Moderate -1.6 through -2.0Severe -2.1 through -2.4 The Z-score is the number of standard deviations above or below a ge-matchedcontrols. A Z-score of less than -1.5 would be considered abnormal. References:1. NIH Osteoporosis and Related Bone Diseases http://www.osteo.org2. International Society for Clinical Densito metry http://www.iscd.org3. National Osteoporosis Foundation http://www.nof.org Dictated on 07/18/10828 by Michelle Choranscribed on 07/18/10828 by Sarita IBRAHIM by Tyler Cho on 07/19/10 0726 Sign by: Irvin Cho 48-Flo-69621:00 BILAT SCRN DIGITAL & CAD Radiology Report See Note (Normal) Comments: MAMMOGRAPHY - BILATERAL SCREENING INDICATION:Routine annual screening examination. PERTINENT HISTORY:Non- contributory. TECHNIQUE:Digital examination. Mediolateral oblique (MLO) and craniocaudad (CC)vie ws of both breasts were obtained. CAD was performed on this study. COMPARISON:July 01, 2006, June 23, 2008 July 07 2009. FINDINGS:The breast composition is composed of scattered fibroglandul ardensities.Density in the retroareolar area of the left breast is variable betweenexaminations. However there is no persistent mass identified. There isnoskin thickening or retraction, architectural distortion or cluster ofsuspicious microcalcifications.No other significant abnormalities are identified. IMPRESSION:Normal bilateral screening mammogram. Yearly follow-up recommended. ASSESSMENT CATEG ORY:Category 2: Benign finding(s) Approximately 10% of breast cancers are not detected by mammography. Anormal mammogram should not delay biopsy of a clinically suspiciousabnormality. Dictated on 09/17/09847 by ELAINE NIEVESTranscribed on 07/18/1048 by KIKO IBRAHIMKESSONSign by ELAINE NIEVES on 07/19/10 1052 Sign by: ELAINE NIEVES 21-Lld-59560:59 Prothrombin Time (PT) Comments: PERFORMED BY: [employer]6370 [facility]ktourismScot[facility] [id number] Prothrombin Time 30.2 {sec} (Abnormal) Range: 8.7-11.5 INR 2.8 (Abnormal) Range: 0.8-1.2 Comments: Reference interval is for non-anticoagulated patients. . Suggested INR therapeutic range for Vitamin K anta gonist therapy: Standard Dose (moderate intensity therapeutic range): 2.0 - 3.0 Higher intensity therapeutic range 2.5 - 3.5 29-Vgu-715457:36 PT (Prothrobim Time) Comments: standing order; PATIENT NOT FASTINGPERFORMED BY: [facility] Global ServicesLyons VA Medical CenterDrkptf5480 [facility] [id number] Information: [id number] (11864) Prothrombin Time 17.5 {sec} (Abnormal) Range: 8.7-11.5 INR 1.6 (Abnormal) Range: 0.8-1.2 Comments: Reference interval is for non-anticoagulated patients. . Suggested INR therapeutic range for Vitamin K anta gonist therapy: Standard Dose (moderate intensity therapeutic range): 2.0 - 3.0 Higher intensity therapeutic range 2.5 - 3.5 :22 Prothrombin Time (PT) Comments: PERFORMED BY: [facility] Global ServicesLyons VA Medical CenterGqdtjp6076 [facility] [id number] Prothrombin Time 19.0 {sec} (Abnormal) Range: 8.7-11.5 INR 1.8 (Abnormal) Range: 0.8-1.2 Comments: Reference interval is for non-anticoagulated patients..Suggested INR therapeutic range for Vitamin Kantagonist therapy:Standard Dose (moderate intensitytherapeutic range): 2.0 - 3.0Higher intensity therapeutic range 2.5 - 3.5 :24 HgA1C , Office (50893) HgA1C , Office 6.6 % (Normal) Range: 4.6 - 7.1 :24 Blood Glucose , Office (25784) Blood Glucose , Office 128 (Normal) :25 CBC With Differential/Platelet Comments: PATIENT WAS FASTINGPERFORMED BY: LabCoLyons VA Medical CenterGgospo3853 [facility] [id number] Immature Grans (Abs) 0.0 {x10E3/uL} (Normal) Range: 0.0-0.1 Baso (Absolute) 0.0 {x10E3/uL} (Normal) Range: 0.0-0.2 Eos (Absolute) 0.1 {x10E3/uL} (Normal) Range: 0.0-0.4 Immature Granulocytes 0 % (Normal) Range: 0-1 Monocytes(Absolute) 0.3 {x10E3/uL} (Normal) Range: 0.1-1.0 Lymphs (Absolute) 1.9 {x10E3/uL} (Normal) Range: 0.7-4.5 Neutrophils (Absolute) 4.6 {x10E3/uL} (Normal) Range: 1.8-7.8 Basos 0 % (Normal) Range: 0-3 Eos 1 % (Normal) Range: 0-7 Lymphs 28 % (Normal) Range: 14-46 Monocytes 5 % (Normal) Range: 4-13 Neutrophils 66 % (Normal) Range: 40-74 Platelets 211 {x10E3/uL} (Normal) Range: 140-415 RDW 14.2 % (Normal) Range: 11.7-15.0 Hematocrit 37.3 % (Normal) Range: 34.0-44.0 Hemoglobin 11.8 g/dL (Normal) Range: 11.5-15.0 MCH 29.1 pg (Normal) Range: 27.0-34.0 MCHC 31.6 g/dL (Abnormal) Range: 32.0-36.0 MCV 92 fL (Normal) Range: 80-98 RBC 4.05 {x10E6/uL} (Normal) Range: 3.80-5.10 WBC 7.0 {x10E3/uL} (Normal) Range: 4.0-10.5 37-Xyo-36741:25 Comp. Metabolic Panel (14) Comments: PATIENT WAS FASTINGPERFORMED BY: LabCoLyons VA Medical CenterRyyxys5228 [facility] [id number] ALT (SGPT) 18 [iU]/L (Normal) Range: 0-40 AST (SGOT) 19 [iU]/L (Normal) Range: 0-40 A/G Ratio 1.4 (Normal) Range: 1.1-2.5 Albumin, Serum 4.4 g/dL (Normal) Range: 3.6-4.8 Alkaline Phosphatase, S 92 [iU]/L (Normal) Range: 25-165 Bilirubin, Total 0.7 mg/dL (Normal) Range: 0.0-1.2 Globulin, Total 3.2 g/dL (Normal) Range: 1.5-4.5 Calcium, Serum 10.1 mg/dL (Normal) Range: 8.6-10.2 Carbon Dioxide, Total 22 mmol/L (Normal) Range: 20-32 Chloride, Serum 102 mmol/L (Normal) Range: 97-108 Protein, Total, Serum 7.6 g/dL (Normal) Range: 6.0-8.5 BUN/Creatinine Ratio 21 (Normal) Range: 8-27 eGFR 41 mL/min/1.73 (Abnormal) eGFR AfricanAmerican 50 mL/min/1.73 Comments: Note: Persistent reduction for 3 months or more in an eGFR<60 mL/min/1.73 m2 defines CKD. Patients with eGFR values>/=60 mL/min/1.73 m2 may also have CKD if evidence of persistentproteinur ia is (Abnormal) present. Additional information may be found atwww.kdoqi.org. Potassium, Serum 4.7 mmol/L (Normal) Range: 3.5-5.2 Sodium, Serum 138 mmol/L (Normal) Range: 135-145 BUN 27 mg/dL (Abnormal) Range: 5-26 Creatinine, Serum 1.30 mg/dL (Abnormal) Range: 0.57-1.00 Glucose, Serum 105 mg/dL (Abnormal) Range: 65-99 :25 Lipid Panel With LDL/HDL Comments: PATIENT WAS FASTINGPERFORMED BY: in[facility]incNov[facility] [id number] Ratio LDL Cholesterol Calc 67 mg/dL (Normal) Range: 0-99 LDL/HDL Ratio 2.0 {ratio_units} (Normal) Range: 0.0-3.2 HDL Cholesterol 33 mg/dL (Abnormal) Comments: According to ATP-III Guidelines, HDL-C >59 mg/dL is considered anegative risk factor for CHD. Triglycerides 153 mg/dL (Abnormal) Range: 0-149 VLDL Cholesterol Maricruz 31 mg/dL (Normal) Range: 5-40 Cholesterol, Total 131 mg/dL (Normal) Range: 100-199 :25 Prothrombin Time (PT) Comments: PATIENT WAS FASTINGPERFORMED BY: [employer]6370 [facility] [id number] INR 1.7 (Abnormal) Range: 0.8-1.2 Comments: Reference interval is for non-anticoagulated patients..Suggested INR therapeutic range for Vitamin Kantagonist therapy:Standard Dose (moderate intensitytherapeutic range): 2.0 - 3.0Higher intensity therapeutic range 2.5 - 3.5 Prothrombin Time 18.0 {sec} Range: 8.7-11.5 (Abnormal) 02-May-2010 Vitamin D, 25-Hydroxy 44.2 ng/mL (Normal) Comments: PATIENT WAS FASTINGPERFORMED BY: [facility] StorageK[facility]6370 [facility] [id number] 9:25 Range: 32.0-100.0 Comments: Recent studies consider the lower limit of 32.0 ng/mL to be athreshold for optimal health.Ye JARVIS. J Nutr. 2004;135(2):317-22. 54-Fbo-155771:08 Uric Acid, 24 hr Urine Comments: PERFORMED BY: [facility]allin6370 [facility] [id number] Information: 02/13@6AM 02/14@545AM Uric Acid, Urine 24hr 502.4 {mg/24_hr} (Normal) Range: 250.0-750.0 Uric Acid, Urine 15.7 mg/dL (Normal) 95-Qpd-498685:21 Prothrombin Time (PT) Comments: PERFORMED BY: [employer] Ttxoxv9065 [facility] [id number] Prothrombin Time 24.1 {sec} (Abnormal) Range: 8.7-11.5 INR 2.4 (Abnormal) Range: 0.8-1.2 Comments: Reference interval is for non-anticoagulated patients..Suggested INR therapeutic range for Vitamin Kantagonist therapy:Standard Dose (moderate intensitytherapeutic range): 2.0 - 3.0Higher intensity therapeutic range 2.5 - 3.5 Uric Acid, Serum 10.8 mg/dL (Abnormal) Comments: PERFORMED BY: [facility]6370 [facility] [id number] :21 Range: 2.4-8.2 56-Xel-605068:22 HgA1C , Office (02075) HgA1C , Office 6.4 % (Normal) Range: 4.6 - 7.1 31-Tvm-363111:22 Blood Glucose , Office (00978) Blood Glucose , Office 137 (Normal) 16-Eec-625261:38 URIC ACID BLOOD (86888) Comments: PATIENT NOT FASTINGPERFORMED BY: [facility]6370 [facility] [id number] Information: [id number] Uric Acid, Serum 9.0 mg/dL (Abnormal) Range: 2.4-8.2 92-Elu-640426:16 FOOT,MIN 3 VIEWS (MT) Radiology Report See Note (Normal) Comments: Exam Number: [id number] LEFT FOOT Three views of the left foot were obtained. HISTORYThis is a 64-year-old female patient with a history of sudden onset ofheel pain. FINDINGSThere is evidence of a planta r spur. 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 There is also evidence of soft tissueswelling overlying the dorsal aspect of the william t. No acute fractureis seen. IMPRESSIONPlantar spur. Reported By: IRVIN CHO 72-Ugo-385522:56 PTT (Activated Partial Comments: PATIENT NOT FASTINGPERFORMED BY: [facility] Global ServicesLyons VA Medical CenterJazvym7200 [facility] [id number] Thromboplastin Time) (24121) aPTT 56 {sec} (Abnormal) Range: 24-33 Comments: This test has not been validated for monitoring unfractionated heparintherapy. aPTT-based therapeutic ranges for unfractionated heparintherapy have not been established. For general guidelines onHeparin monitoring, refer to the [facility] Directory of Services. 67-Hdx-891895:56 PT (Prothrobim Time) Comments: PATIENT NOT FASTINGPERFORMED BY: [facility] StorageK[facility]6370 [facility] [id number] Information: [id number] (74379) Prothrombin Time 24.2 {sec} (Abnormal) Range: 8.7-11.5 INR 2.5 (Abnormal) Range: 0.8-1.2 Comments: Reference interval is for non-anticoagulated patients..Suggested INR therapeutic range for Vitamin Kantagonist therapy:Standard Dose (moderate intensitytherapeutic range): 2.0 - 3.0Higher intensity therapeutic range 2.5 - 3.5 19-Kqe-206773:49 Prothrombin Time (PT) Comments: PERFORMED BY: [facility]6370 [facility] [id number] Prothrombin Time 26.2 {sec} (Abnormal) Range: 8.7-11.5 INR 2.7 (Abnormal) Range: 0.8-1.2 Comments: Reference interval is for non-anticoagulated patients..Suggested INR therapeutic range for Vitamin Kantagonist therapy:Standard Dose (moderate intensitytherapeutic range): 2.0 - 3.0Higher intensity therapeutic range 2.5 - 3.5 Hemoglobin A1c 6.1 % (Abnormal) Comments: PERFORMED BY: [facility] Global ServicesLyons VA Medical CenterFvkpcp8359 [facility] [id number] :56 Range: 4.8-5.6 Comments: Increased risk for diabetes: 5.7 - 6.4Diabetes: >6.4Glycemic control for adults with diabetes: <7.0.Please note reference interval change :21 HgA1C , Office (62648) HgA1C , Office 6.1 % (Normal) Range: 4.6 - 7.1 :21 Blood Glucose , Office (00582) Blood Glucose , Office 98 (Normal) :46 CBC With Differential/Platelet Comments: A courtesy copy of this report has been sent [phone].PATIENT WAS FASTINGPERFORMED BY: [facility] StorageK[facility]6370 [facility] [id number] Information: [id number] Baso (Absolute) 0.0 {x10E3/uL} (Normal) Range: 0.0-0.2 Eos (Absolute) 0.1 {x10E3/uL} (Normal) Range: 0.0-0.4 Lymphs (Absolute) 1.5 {x10E3/uL} (Normal) Range: 0.7-4.5 Monocytes(Absolute) 0.2 {x10E3/uL} (Normal) Range: 0.1-1.0 Neutrophils (Absolute) 5.3 {x10E3/uL} (Normal) Range: 1.8-7.8 Basos 0 % (Normal) Range: 0-3 Eos 1 % (Normal) Range: 0-7 Lymphs 21 % (Normal) Range: 14-46 Monocytes 3 % (Abnormal) Range: 4-13 Neutrophils 75 % (Abnormal) Range: 40-74 Platelets 141 {x10E3/uL} (Normal) Range: 140-415 Hematocrit 36.6 % (Normal) Range: 34.0-44.0 MCH 31.4 pg (Normal) Range: 27.0-34.0 MCHC 33.9 g/dL (Normal) Range: 32.0-36.0 MCV 93 fL (Normal) Range: 80-98 RDW 14.2 % (Normal) Range: 11.7-15.0 Hemoglobin 12.4 g/dL (Normal) Range: 11.5-15.0 RBC 3.95 {x10E6/uL} (Normal) Range: 3.80-5.10 WBC 7.1 {x10E3/uL} (Normal) Range: 4.0-10.5 :46 Comp. Metabolic Panel (14) Comments: A courtesy copy of this report has been sent [phone].PATIENT WAS FASTINGPERFORMED BY: [facility] Drvxwu2036 [facility] [id number] Alkaline Phosphatase, S 85 [iU]/L (Normal) Range: 25-165 ALT (SGPT) 22 [iU]/L (Normal) Range: 0-40 AST (SGOT) 20 [iU]/L (Normal) Range: 0-40 Bilirubin, Total 0.4 mg/dL (Normal) Range: 0.1-1.2 A/G Ratio 1.2 (Normal) Range: 1.1-2.5 Albumin, Serum 4.3 g/dL (Normal) Range: 3.6-4.8 Calcium, Serum 10.0 mg/dL (Normal) Range: 8.6-10.2 Globulin, Total 3.7 g/dL (Normal) Range: 1.5-4.5 Protein, Total, Serum 8.0 g/dL (Normal) Range: 6.0-8.5 Carbon Dioxide, Total 23 mmol/L (Normal) Range: 20-32 Chloride, Serum 104 mmol/L (Normal) Range: 97-108 Potassium, Serum 5.0 mmol/L (Normal) Range: 3.5-5.2 Sodium, Serum 141 mmol/L (Normal) Range: 135-145 BUN/Creatinine Ratio 24 (Normal) Range: 8-27 eGFR 39 mL/min/1.73 (Abnormal) eGFR AfricanAmerican 47 mL/min/1.73 Comments: Note: Persistent reduction for 3 months or more in an eGFR<60 mL/min/1.73 m2 defines CKD. Patients with eGFR values>/=60 mL/min/1.73 m2 may also have CKD if evidence of persistentproteinur ia is (Abnormal) present. Additional information may be found atwww.kdoqi.org. BUN 33 mg/dL (Abnormal) Range: 5-26 Creatinine, Serum 1.36 mg/dL (Abnormal) Range: 0.57-1.00 Glucose, Serum 105 mg/dL (Abnormal) Range: 65-99 :46 Lipid Panel With LDL/HDL Comments: A courtesy copy of this report has been sent [phone].PATIENT WAS FASTINGPERFORMED BY: [employer] [facility] [place]2508 [facility] [id number] Ratio HDL Cholesterol 37 mg/dL (Abnormal) Comments: According to ATP-III Guidelines, HDL-C >59 mg/dL is considered anegative risk factor for CHD. LDL Cholesterol Calc 57 mg/dL (Normal) Range: 0-99 LDL/HDL Ratio 1.5 {ratio_units} (Normal) Range: 0.0-3.2 Triglycerides 128 mg/dL (Normal) Range: 0-149 VLDL Cholesterol Maricruz 26 mg/dL (Normal) Range: 5-40 Cholesterol, Total 120 mg/dL (Normal) Range: 100-199 :46 Microalb/Creat Ratio, Randm Ur Comments: A courtesy copy of this report has been sent [phone].PATIENT WAS FASTINGPERFORMED BY: [facility] Zlrmob1247 [facility] [id number] Microalb/Creat Ratio 7.2 {mg/g_creat} (Normal) Range: 0.0-30.0 Creatinine, Urine 16.6 mg/dL (Normal) Range: 15.0-278.0 Microalbumin, Urine 1.2 ug/mL (Normal) Range: 0.0-17.0 :46 Prothrombin Time (PT) Comments: A courtesy copy of this report has been sent [phone].PATIENT WAS FASTINGPERFORMED BY: [facility] Global ServicesLyons VA Medical CenterDuobnz0743 [facility] [id number] Prothrombin Time 28.1 {sec} Range: 8.7-11.5 (Abnormal) INR 2.9 (Abnormal) Range: 0.8-1.2 Comments: Reference interval is for non-anticoagulated patients..Suggested INR therapeutic range for Vitamin Kantagonist therapy:Standard Dose (moderate intensitytherapeutic range): 2.0 - 3.0Higher intensity therapeutic range 2.5 - 3.5 Vitamin D, 25-Hydroxy 27.8 ng/mL Comments: A courtesy copy of this report has been sent [phone].PATIENT WAS FASTINGPERFORMED BY: [facility] Global ServicesLyons VA Medical CenterWvqoqc2771 [facility] [id number] :46 (Abnormal) Range: 32.0-100.0 Comments: Recent studies consider the lower limit of 32.0 ng/mL to be athreshold for optimal health.Ye JARVIS. J Nutr. 2004;135(2):317-22. 57-Hzi-579879:51 Comp. Metabolic Panel (14) Comments: PERFORMED BY: [facility] Global ServicesLyons VA Medical CenterYoznlx8840 [facility] [id number] A/G Ratio 1.3 (Normal) Range: 1.1-2.5 Albumin, Serum 4.2 g/dL (Normal) Range: 3.6-4.8 Alkaline Phosphatase, S 87 [iU]/L (Normal) Range: 25-165 ALT (SGPT) 19 [iU]/L (Normal) Range: 0-40 AST (SGOT) 22 [iU]/L (Normal) Range: 0-40 Bilirubin, Total 0.5 mg/dL (Normal) Range: 0.1-1.2 BUN 30 mg/dL (Abnormal) Range: 5-26 BUN/Creatinine Ratio 21 (Normal) Range: 8-27 Calcium, Serum 10.1 mg/dL (Normal) Range: 8.5-10.6 Carbon Dioxide, Total 22 mmol/L (Normal) Range: 20-32 Chloride, Serum 103 mmol/L (Normal) Range: 97-108 Creatinine, Serum 1.43 mg/dL (Abnormal) Range: 0.57-1.00 eGFR 37 mL/min/1.73 (Abnormal) eGFR AfricanAmerican 44 mL/min/1.73 Comments: Note: Persistent reduction for 3 months or more in an eGFR<60 mL/min/1.73 m2 defines CKD. Patients with eGFR values>/=60 mL/min/1.73 m2 may also have CKD if evidence of persistentproteinur ia is (Abnormal) present. Additional information may be found atwww.kdoqi.org. Globulin, Total 3.2 g/dL (Normal) Range: 1.5-4.5 Glucose, Serum 103 mg/dL (Abnormal) Range: 65-99 Potassium, Serum 5.0 mmol/L (Normal) Range: 3.5-5.2 Protein, Total, Serum 7.4 g/dL (Normal) Range: 6.0-8.5 Sodium, Serum 139 mmol/L (Normal) Range: 135-145 :51 Prothrombin Time (PT) Comments: PERFORMED BY: [employer] [facility] [id number] INR 2.3 (Abnormal) Range: 0.8-1.2 Comments: Reference interval is for non-anticoagulated patients. . Suggested INR therapeutic range for Vitamin K anta gonist therapy: Standard Dose (moderate intensity therapeutic range): 2.0 - 3.0 Higher intensity therapeutic range 2.5 - 3.5 Prothrombin Time 22.7 {sec} (Abnormal) Range: 8.7-11.5 :47 PT (Prothrobim Time) (89968) Comments: PATIENT NOT FASTINGClinical Information: [id number] PERFORMED BY: [employer]6370 [facility] [id number] INR 2.0 (Abnormal) Range: 0.8-1.2 Comments: Reference interval is for non-anticoagulated patients. . Suggested INR therapeutic range for Vitamin K anta gonist therapy: Standard Dose (moderate intensity therapeutic range): 2.0 - 3.0 Higher intensity therapeutic range 2.5 - 3.5 Prothrombin Time 19.7 {sec} (Abnormal) Range: 8.7-11.5 94-Wyq-779402:10 HgA1C , Office (99318) HgA1C , Office 6.3 % (Normal) Range: 4.6 - 7.1 53-Bqj-606631:10 Blood Glucose , Office (17250) Blood Glucose , Office 109 (Normal) 55-Gqk-286909:58 BILAT SCRN DIGITAL & CAD Radiology Report See Note (Normal) Comments: Exam Number: [id number] MAMMOGRAM, BILATERAL SCREENING DIGITAL AND CAD HISTORYRoutine screening. Full field digital images were obtained in mediolateral oblique andcraniocaudal projections. CAD images w ere reviewed. The current study is compared to the examinations of June, July 01, 2006, July 08, 2007 and June 30, 2008. There is moderately dense fibroglandular parenchyma prese nt. There isno skin thickening or retraction, architectural distortion, or clusterof suspicious microcalcifications. There are asymmetrical parenchymaldensities in the posterior aspect of the right br east. These werepresent previously. There is prominent density in the periareolararea of both breasts predominantly seen or more impressively seen onthe craniocaudal than the mediolateral oblique proj ections. This wasalso present previously. If there is no suspicious palpableabnormality, followup mammogram in 1 year is recommended. IMPRESSIONThere is no radiographic evidence of malignancy identifie d. FINAL ASSESSMENTBenign findings. BIRADS Category 2. A letter regarding these results has been sent to the patient. This interpretation was rendered by a radiologist certified under theMammography Q uality Standards Act of 1992 (MQSA). The mammograms werealso examined with computer-aided detection software ([employer], [employer] Reported By: ELAINE NIEVES M.D. 1-Vkd-013868:22 PRO TIME INR 2.3 (Normal) PROTIME 26.1 s (Abnormal) Range: 9.1-11.7 90-Fga-716252:19 CHEST, PA AND LATERAL (MT) Radiology Report See Note (Normal) Comments: Exam Number: [id number] PA AND LATERAL CHEST Mild cardiomegaly appears unchanged from previous study of July. No active pulmonary or pleural disease is demonstrated. Thereis degenerative spu rring in the thoracic spine. IMPRESSION1. No evidence of active pulmonary disease. 2. Stable mild cardiomegaly. Reported By: YUKI RINCON M.D. :45 PRO TIME INR 2.4 (Normal) PROTIME 27.1 s (Abnormal) Range: 9.1-11.7 :50 BMP BUN 28 mg/dL (Abnormal) Range: 7-18 BUN/CRE 17.5 {RATIO} (Normal) Range: 10-20 CA 9.3 mg/dL (Normal) Range: 8.5-10.1 CL 107 mmol/L (Normal) Range: 98-107 CO2 23.0 mmol/L (Normal) Range: 21.0-32.0 CREAT,SERUM 1.6 mg/dL (Abnormal) Range: 0.6-1.0 EST GFR 34 mL/min (Abnormal) EST GFR - AA 41 mL/min (Abnormal) GAP 10 (Normal) Range: 5-15 GLU 105 mg/dL (Normal) Range: 70-110 K 4.8 mmol/L (Normal) Range: 3.5-5.1 NA 140 mmol/L (Normal) Range: 136-145 :50 PRO TIME INR 2.1 (Normal) PROTIME 23.2 s (Abnormal) Range: 9.1-11.7 :58 HgA1C , Office (71742) HgA1C , Office 5.7 % (Normal) Range: 4.6 - 7.1 :58 Blood Glucose , Office (44821) Blood Glucose , Office 119 (Normal) :39 PT/INR, Office (60654) INR 2.6 (Normal) :55 PT/INR, Office (53131) INR 2.5 (Normal) Comments: aw :01 HgA1C , Office (37793) HgA1C , Office 5.8 % (Normal) Range: 4.6 - 7.1 :01 Blood Glucose , Office (19864) Blood Glucose , Office 111 (Normal) :27 PT/INR, Office (50013) INR 2.2 (Normal) :09 PT/INR, Office (57762) INR 1.8 (Normal) :55 PT/INR, Office (05924) INR 3.3 (Normal) :51 PT/INR, Office (13260) INR 3.2 (Normal) Comments: aw 47-Qrv-395768:00 PT/INR, Office (55742) INR 2.9 (Normal) :14 PT/INR, Office (30375) INR 3.7 (Normal) :50 HgA1C , Office (48399) HgA1C , Office 5.8 % (Normal) Range: 4.6 - 7.1 :50 Blood Glucose , Office (70366) Blood Glucose , Office 119 (Normal) :03 CBC With Differential/Platelet Comments: PATIENT WAS FASTINGPERFORMED BY: [facility] Emvxxm0404 [facility] [id number] Baso (Absolute) 0.0 {x10E3/uL} (Normal) Range: 0.0-0.2 Basos 0 % (Normal) Range: 0-3 Eos 1 % (Normal) Range: 0-7 Eos (Absolute) 0.1 {x10E3/uL} (Normal) Range: 0.0-0.4 Hematocrit 38.4 % (Normal) Range: 34.0-44.0 Hemoglobin 12.8 g/dL (Normal) Range: 11.5-15.0 Lymphs 23 % (Normal) Range: 14-46 Lymphs (Absolute) 1.7 {x10E3/uL} (Normal) Range: 0.7-4.5 MCH 30.0 pg (Normal) Range: 27.0-34.0 MCHC 33.3 g/dL (Normal) Range: 32.0-36.0 MCV 90 fL (Normal) Range: 80-98 Monocytes 4 % (Normal) Range: 4-13 Monocytes(Absolute) 0.3 {x10E3/uL} (Normal) Range: 0.1-1.0 Neutrophils 72 % (Normal) Range: 40-74 Neutrophils (Absolute) 5.3 {x10E3/uL} (Normal) Range: 1.8-7.8 Platelets 216 {x10E3/uL} (Normal) Range: 140-415 RBC 4.25 {x10E6/uL} (Normal) Range: 3.80-5.10 RDW 15.6 % (Abnormal) Range: 11.7-15.0 WBC 7.4 {x10E3/uL} (Normal) Range: 4.0-10.5 [id number]-Hrb-[id number]:03 Comp. Metabolic Panel (14) Comments: PATIENT WAS FASTINGPERFORMED BY: [facility] [id number] A/G Ratio 1.1 (Normal) Range: 1.1-2.5 Albumin, Serum 4.2 g/dL (Normal) Range: 3.6-4.8 Alkaline Phosphatase, S 94 [iU]/L (Normal) Range: 25-165 ALT (SGPT) 21 [iU]/L (Normal) Range: 0-40 AST (SGOT) 20 [iU]/L (Normal) Range: 0-40 Bilirubin, Total 0.7 mg/dL (Normal) Range: 0.1-1.2 BUN 25 mg/dL (Normal) Range: 5-26 BUN/Creatinine Ratio 18 (Normal) Range: 8-27 Calcium, Serum 10.3 mg/dL (Normal) Range: 8.5-10.6 Carbon Dioxide, Total 19 mmol/L (Abnormal) Range: 20-32 Chloride, Serum 102 mmol/L (Normal) Range: 97-108 Creatinine, Serum 1.40 mg/dL (Abnormal) Range: 0.57-1.00 Globulin, Total 3.7 g/dL (Normal) Range: 1.5-4.5 Glom Filt Rate, Est 38 mL/min/1.73 (Abnormal) Glucose, Serum 106 mg/dL (Abnormal) Range: 65-99 If -Libyan 46 mL/min/1.73 Comments: Note: Persistent reduction for 3 months or more in an eGFR<60 mL/min/1.73 m2 defines CKD. Patients with eGFR values>/=60 mL/min/1.73 m2 may also have CKD if evidence of persistentproteinur ia is (Abnormal) present. Additional information may be found [email or web address]. Potassium, Serum 4.7 mmol/L (Normal) Range: 3.5-5.2 Protein, Total, Serum 7.9 g/dL (Normal) Range: 6.0-8.5 Sodium, Serum 137 mmol/L (Normal) Range: 135-145 :03 Lipid Panel With LDL/HDL Comments: PATIENT WAS FASTINGPERFORMED BY: [address] [id number] Ratio Cholesterol, Total 129 mg/dL (Normal) Range: 100-199 HDL Cholesterol 34 mg/dL (Abnormal) Comments: According to ATP-III Guidelines, HDL-C >59 mg/dL is considered anegative risk factor for CHD. LDL Cholesterol Calc 66 mg/dL (Normal) Range: 0-99 LDL/HDL Ratio 1.9 {ratio_units} (Normal) Range: 0.0-3.2 Triglycerides 144 mg/dL (Normal) Range: 0-149 VLDL Cholesterol [place] 29 mg/dL (Normal) Range: 5-40 55-Ibr-117749:03 Microscopic Examination Comments: PATIENT WAS FASTINGPERFORMED BY: [address] [id number] Bacteria Few (Normal) Cast Type Hyaline casts (Normal) Casts Present {/lpf} (Abnormal) Crystal Type Amorphous Sediment (Normal) Crystals Present (Abnormal) Epithelial Cells (non 0-10 {/hpf} (Normal) Range: 0 - 10 renal) Mucus Threads Present (Normal) RBC 0-3 {/hpf} (Normal) Range: 0 - 3 WBC 0-5 {/hpf} (Normal) Range: 0 - 5 NTI Urine Tube (Dorsey) COMMNT (Normal) Comments: PATIENT WAS FASTINGPERFORMED BY: [facility] [place] [address] [id number] 1:03 Comments: .A urine culture transport was received with no test indicated. Iftesting is required on this specimen, please contact the [facility] to obtain a Request forWritten Authorization Form. TSH 2.526 {uIU/mL} Comments: PATIENT WAS FASTINGPERFORMED BY: [facility] [facility] [id number] 1:03 (Normal) Range: 0.450-4.500 26-Uxz-[id number]:03 Urinalysis, Routine Comments: PATIENT WAS FASTINGPERFORMED BY: [facility] [id number] Appearance Clear (Normal) Bilirubin Negative (Normal) Glucose Negative (Normal) Ketones Negative (Normal) Microscopic Examination See below: (Normal) Nitrite, Urine Negative (Normal) Occult Blood Negative (Normal) pH 7.0 (Normal) Range: 5.0-7.5 Protein Negative (Normal) Specific [place] 1.008 (Normal) Range: 1.005-1.030 Urine-Color Yellow (Normal) Urobilinogen,Semi-Qn 0.2 mg/dL (Normal) Range: 0.0-1.9 WBC Esterase Trace (Abnormal) :29 PT/INR, Office (79221) INR 2.6 (Normal) Comments: aw [id number]:16 HgA1C , Office (40967) HgA1C , Office 6.1 % (Normal) Range: 4.6 - 7.1 24-Nxi-416473:16 Blood Glucose , Office (92651) Blood Glucose , Office 186 (Normal) 45-Itu-416761:16 PT/INR, Office (51286) INR 2.8 (Normal) :49 BILAT SCRN DIGITAL & CAD Radiology Report See Note (Normal) Comments: Exam Number: [id number] MAMMOGRAM, BILATERAL SCREENING DIGITAL AND CAD HISTORYRoutine screening. Full field digital images were obtained in mediolateral oblique andcraniocaudal projections. CAD images w ere reviewed. The current study is compared to the examinations of June 2005,June 2006 and June 2007. There is moderately dense fibroglandular parenchyma present. There isno skin thickening or retraction, architectural distortion, or clusterof suspicious microcalcifications. There are multiple small densitiesin the upper-outer quadrant of the right breast which are stable.There is also a small density in the mid-right breast which waspresent previously. If there is no suspicious palpable abnormality,followup mammogram in 1 year is recommended. IMPRESSIONThere is no radiographic evidenc e of malignancy identified. FINAL ASSESSMENTBenign findings. BIRADS Category 2. A letter regarding these results has been sent to the patient. This interpretation was rendered by a radiologist certifi ed under theMammography Quality Standards Act of 1992 (MQSA). The mammograms werealso examined with computer-aided detection software ([employer], [employer].). Reported By: ELAINE NIEVES M.D. :37 PT/INR, Office (37935) INR 2.4 (Normal) :00 PT/INR, Office (73631) INR 1.9 (Normal) PT (PROTHROMBIN TIME) INR - 1.9 s (Normal) Range: 11.5-13.5 :18 DEXA BONE DENSITY/APPEND SKEL Radiology Report See Note (Normal) Comments: Exam Number: [id number] BONE DENSITOMETRY/APPENDICULAR SKELETON HISTORYOsteopenia. TECHNIQUE Bone densitometry of the lumbar spine and left hip was performed. Thebest criteria for evaluation of oste oporosis is the T-value, whichrepresents the comparison of the patient's bone mass to an expectedpeak bone mass. For most patients, the mean T-value of L1 through L4is used to evaluate the lumbar spine . Based on the newest WorldHealth Organization classifications, the hip is evaluated by utilizingthe lower of the T-value of the total hip or the T-value of thefemoral neck. FINDINGSIn this patient, the usual measurements of lumbar spine and hip couldnot be obtained since the patient's weight is above the table limit. The total T-value of the distal right forearm is -1 which is lownormal. The tota l T-value of the distal left forearm is -1.1 which isin the range of osteopenia. IMPRESSIONBone densitometry of the distal right forearm is low normal. Bonedensitometry of the distal left forearm is in the range of osteopenia. Reported By: ELAINE NIEVES M.D. [id number]-[id number]:08 PT/INR, Office (36831) INR 2.0 (Normal) 44-Gce-[id number]:08 HgA1C , Office (04654) HgA1C , Office 6.3 % (Normal) Range: 4.6 - 7.1 27-Hms-744505:08 Blood Glucose , Office (54336) Blood Glucose , Office 177 (Normal) :13 CBCD,SMEAR DIFF BAND 3 % (Normal) Range: 0-5 BASOPHIL 1 % (Normal) Range: 0-1 CELLS COUNTED 100 (Normal) HCT 35.2 % (Abnormal) Range: 37-47 HGB 11.9 g/dL (Abnormal) Range: 12.0-16.0 LYMPH 21 % (Normal) Range: 19-41 MCH 29.7 pg (Normal) Range: 27.0-32.0 MCHC 34.0 g/dL (Normal) Range: 32-36 MCV 87.5 fL (Normal) Range: 81-99 MONOCYTE 2 % (Normal) Range: 0-10 PLT 227 K/mm3 (Normal) Range: 150-450 PLT EST SeeNote (Normal) Comments: Result: ADEQUATE RBC 4.02 {M/mm3} (Abnormal) Range: 4.2-5.4 RDW 14.8 % (Abnormal) Range: 11.6-14.6 RED CELL MORPH SeeNote {NORMAL} (Normal) Comments: Result: NORM C+C SEGS 73 % (Abnormal) Range: 47-70 WBC 8.0 K/mm3 (Normal) Range: 4.4-11.0 :13 COMP METABOLIC A/G 0.9 {RATIO} (Normal) Range: 0.9-2.4 ALB 3.7 g/dL (Normal) Range: 3.4-5.0 ALK P 83 U/L (Normal) Range: 50-136 ALT 42 U/L (Normal) Range: 30-65 AST 38 U/L (Abnormal) Range: 15-37 BUN 26 mg/dL (Abnormal) Range: 7-18 BUN/CRE 21.7 {RATIO} (Abnormal) Range: 10-20 CA 9.7 mg/dL (Normal) Range: 8.5-10.1 CL 104 mmol/L (Normal) Range: 98-107 CO2 24.2 mmol/L (Normal) Range: 21.0-32.0 CREAT,SERUM 1.2 mg/dL (Abnormal) Range: 0.6-1.0 GAP 10 (Normal) Range: 5-15 GLOB 4.2 g/dL (Normal) Range: 2.7-4.2 GLU 106 mg/dL (Normal) Range: 70-110 K 4.0 mmol/L (Normal) Range: 3.5-5.1 NA 138 mmol/L (Normal) Range: 136-145 T BILI 0.72 mg/dL (Normal) Range: 0.00-1.00 T PROT 7.9 g/dL (Normal) Range: 6.4-8.2 :13 LIPID CHOL 126 mg/dL (Normal) Comments: <200 mg/dL Desirable 200-240 mg/dL Borderline >240 mg/dL High Risk HDL 32 mg/dL (Abnormal) Comments: Reference Range HDL <40 mg/dL Low HDL Cholesterol HDL >or= 60 mg/dL High HDL Cholesterol LDL 62 mg/dL (Normal) Range: 0-130 TRIG 159 mg/dL (Normal) Comments: Serum Triglycerides Reference Interval Normal <150 mg/dL Borderline high 150 - 199 mg/dL High 200 - 499 mg/dL Very High > or = 500 mg/dL VLDL 32 mg/dL (Normal) Range: 5-40 :13 ROUTINE UA BILIRUBIN URINE SeeNote (Normal) Comments: Result: NEGATIVE CLARITY CLEAR (Normal) COLOR YELLOW (Normal) GLUCOSE, UR SeeNote (Normal) Comments: Result: NEGATIVE KETONE UR SeeNote mg/dL (Normal) Comments: Result: NEGATIVE LEUK ESTERASE 1+ (Abnormal) NITRITE UR SeeNote (Normal) Comments: Result: NEGATIVE OCCULT BLOOD-UR SeeNote (Normal) Comments: Result: NEGATIVE pH UR 7.0 (Normal) Range: 5.0-8.0 PROT DIPSTX SeeNote (Normal) Comments: Result: NEGATIVE SP.GR. DIPSTX 1.015 (Normal) Range: 1.002-1.030 UROBILI 0.2 EU/dl (Normal) Range: 0.2 - 1.0 :13 TSH 3.60 {uIU/mL} (Normal) Range: 0.34-4.82 :41 PRO TIME INR 2.6 (Normal) PROTIME 28.9 s (Abnormal) Range: 10.6-13.2 47-[id number]:08 PRO TIME INR 3.4 (Normal) PROTIME 36.9 s (Abnormal) Range: 10.6-13.2 37-Gfs-751656:20 PRO TIME INR 2.1 (Normal) PROTIME 23.9 s (Abnormal) Range: 10.6-13.2 :39 PRO TIME INR 3.1 (Normal) PROTIME 33.5 s (Abnormal) Range: 10.6-13.2 :22 HgA1C , Office (40659) HgA1C , Office 6.1 % (Normal) Range: 4.6 - 7.1 :22 Blood Glucose , Office (56117) Blood Glucose , Office 105 (Normal) :34 LIPID CHOL 128 mg/dL (Normal) Comments: <200 mg/dL Desirable 200-240 mg/dL Borderline >240 mg/dL High Risk HDL 36 mg/dL (Normal) Comments: Reference Range HDL <40 mg/dL Low HDL Cholesterol HDL >or= 60 mg/dL High HDL Cholesterol LDL 66 mg/dL (Normal) Range: 0-130 TRIG 129 mg/dL (Normal) Comments: Serum Triglycerides Reference Interval Normal <150 mg/dL Borderline high 150 - 199 mg/dL High 200 - 499 mg/dL Very High > or = 500 mg/dL VLDL 26 mg/dL (Normal) Range: 5-40 :34 LIVER ALB 3.8 g/dL (Normal) Range: 3.4-5.0 ALK P 88 U/L (Normal) Range: 50-136 ALT 37 U/L (Normal) Range: 30-65 AST 18 U/L (Normal) Range: 15-37 D BILI 0.07 mg/dL (Normal) Range: 0.00-0.30 T BILI 0.43 mg/dL (Normal) Range: 0.00-1.00 T PROT 7.9 g/dL (Normal) Range: 6.4-8.2 :34 PRO TIME INR 2.2 (Normal) PROTIME 25.1 s (Abnormal) Range: 10.6-13.2 :09 DIG 0.34 ng/mL (Abnormal) Range: 0.90-2.00 :09 PRO TIME INR 3.3 (Normal) PROTIME 36.3 s (Abnormal) Range: 10.6-13.2 :05 PRO TIME INR 2.7 (Normal) PROTIME 29.6 s (Abnormal) Range: 10.6-13.2 :59 PRO TIME INR 2.8 (Normal) PROTIME 31.1 s (Abnormal) Range: 10.6-13.2 :12 PRO TIME INR 3.1 (Normal) PROTIME 33.6 s (Abnormal) Range: 10.6-13.2 :35 PT/INR, Office (17773) INR 2.7 (Normal) :56 HgA1C , Office (09601) HgA1C , Office 5.8 % (Normal) Range: 4.6 - 7.1 :56 Blood Glucose , Office (25419) Blood Glucose , Office 103 (Normal) :28 PRO TIME INR 2.8 (Normal) PROTIME 30.7 s (Abnormal) Range: 10.6-13.2 :55 PRO TIME INR 2.1 (Normal) PROTIME 24.0 s (Abnormal) Range: 10.6-13.2 :05 PT/INR, Office (64698) INR 2.5 (Normal) :05 Blood Glucose , Office (41821) Blood Glucose , Office 100 (Normal) :05 HgA1C , Office (16525) HgA1C , Office 6.2 % (Normal) Range: 4.6 - 7.1 :10 [facility] DIGITAL & CAD Radiology Report See Note (Normal) Comments: Exam Number: [id number] DIGITAL SCREENING MAMMOGRAPHY WITH CAD COMPARISON STUDYDated July 01, 2006, June 29, 2005, and June 28, 2004. Full field digital mammography was performed bilateral b reasts in thecraniocaudal and mediolateral oblique views. CAD images are reviewed. There is moderate breast density bilaterally. There is no worrisomemass, typically malignant-type microcalcifications or architecturaldistortion in either breast. There is no interval change sincemultiple previous studies. IMPRESSIONNo mammographic evidence for cancer in either breast. Routinebilateral annual screeni ng assessment is recommended. BIRADS Category 2. No interval change in intramammary lymph nodes upper-outer rightbreast. A letter regarding the results has been sent to the patient. This interpreta tion was rendered by a radiologist certified under theMammography Quality Standards Act of 1992 (MQSA). The mammograms werealso examined with computer- aided detection software ([employer] Reported By: MAO KURTZ M.D. :49 PRO TIME INR 2.5 (Normal) PROTIME 27.8 s (Abnormal) Range: 10.6-13.2 :13 PRO TIME INR 2.7 (Normal) PROTIME 29.7 s (Abnormal) Range: 10.6-13.2 :14 PRO TIME INR 2.2 (Normal) PROTIME 24.3 s (Abnormal) Range: 10.6-13.2 :26 PT/INR, Office (48321) INR 2.5 (Normal) PT (PROTHROMBIN TIME) INR 2.5 s (Normal) Range: 11.5-13.5 :25 HgA1C , Office (38343) HgA1C , Office 6.0 % (Normal) Range: 4.6 - 7.1 :25 Blood Glucose , Office (53666) Blood Glucose , Office 108 (Normal) :20 CBCD,SMEAR DIFF BAND 1 % (Normal) Range: 0-5 BASOPHIL 1 % (Normal) Range: 0-1 CELLS COUNTED 100 (Normal) EOS 5 % (Normal) Range: 0-5 HCT 35.2 % (Abnormal) Range: 37-47 HGB 11.9 g/dL (Abnormal) Range: 12.0-16.0 LYMPH 34 % (Normal) Range: 19-41 MCH 30.1 pg (Normal) Range: 27.0-32.0 MCHC 33.7 g/dL (Normal) Range: 32-36 MCV 89.4 fL (Normal) Range: 81-99 PLT 201 K/mm3 (Normal) Range: 150-450 PLT EST SeeNote (Normal) Comments: Result: ADEQUATE RBC 3.94 {M/mm3} (Abnormal) Range: 4.2-5.4 RDW 14.6 % (Normal) Range: 11.6-14.6 RED CELL MORPH SeeNote {NORMAL} (Normal) Comments: Result: NORM C&C SEGS 59 % (Normal) Range: 47-70 WBC 6.0 K/mm3 (Normal) Range: 4.4-11.0 :20 COMP METABOLIC A/G 1.0 {RATIO} (Normal) Range: 0.9-2.4 ALB 3.8 g/dL (Normal) Range: 3.4-5.0 ALK P 94 U/L (Normal) Range: 50-136 ALT 32 [iU]/L (Normal) Range: 30-65 AST 15 U/L (Normal) Range: 15-37 BUN 25 mg/dL (Abnormal) Range: 7-18 BUN/CRE 19.2 {RATIO} (Normal) Range: 10-20 CA 9.2 mg/dL (Normal) Range: 8.5-10.1 CL 104 mmol/L (Normal) Range: 98-107 CO2 24.9 mmol/L (Normal) Range: 22.0-29.0 CREAT,SERUM 1.3 mg/dL (Abnormal) Range: 0.6-1.0 GAP 8 (Normal) Range: 5-15 GLOB 3.8 g/dL (Abnormal) Range: 2.3-3.5 GLU 113 mg/dL (Abnormal) Range: 70-110 Comments: Fasting Glucose result from 110 to <126 mg/dL suggests IMPAIRED HOMEOSTASIS per A.D.A. criteria. K 4.5 mmol/L (Normal) Range: 3.5-5.1 NA 137 mmol/L (Normal) Range: 136-145 T BILI 0.62 mg/dL (Normal) Range: 0.00-1.00 T PROT 7.6 g/dL (Normal) Range: 6.4-8.2 :20 D BILI 0.13 mg/dL (Normal) Range: 0.00-0.30 :20 LIPID CHOL 94 mg/dL (Normal) Comments: <200 mg/dL Desirable 200-240 mg/dL Borderline >240 mg/dL High Risk HDL 27 mg/dL (Abnormal) Comments: Reference Range HDL <40 mg/dL Low HDL Cholesterol HDL >or= 60 mg/dL High HDL Cholesterol LDL 44 mg/dL (Normal) Range: 0-130 TRIG 117 mg/dL (Normal) Comments: Serum Triglycerides Reference Interval Normal <150 mg/dL Borderline high 150 - 199 mg/dL High 200 - 499 mg/dL Very High > or = 500 mg/dL VLDL 23 mg/dL (Normal) Range: 5-40 :20 MICROALBUMIN,UR 6.3 mg/L (Normal) :20 PRO TIME INR 2.8 (Normal) PROTIME 31.3 s (Abnormal) Range: 10.6-13.2 :47 PRO TIME INR 2.3 (Normal) PROTIME 25.3 s (Abnormal) Range: 10.6-13.2 :21 PRO TIME INR 1.7 (Normal) PROTIME 19.3 s (Abnormal) Range: 10.6-13.2 :03 PRO TIME INR 2.4 (Normal) PROTIME 27.1 s (Abnormal) Range: 10.6-13.2 :06 PRO TIME INR 2.7 (Normal) PROTIME 29.9 s (Abnormal) Range: 10.6-13.2 Comments: Please Note Reference Interval Change :22 PT/INR, Office (32207) Comments: done- same dose recheck in 2 weeks-- alternate 4/5 INR 2.3 (Normal) :22 HgA1C , Office (27244) Comments: done HgA1C , Office 5.9 % (Normal) Range: 4.6 - 7.1 :21 Blood Glucose , Office (69246) Comments: done Blood Glucose , Office 101 (Normal) :18 PRO TIME INR 3.1 (Normal) PROTIME 34.3 s (Abnormal) Range: 10.6-13.2 Comments: Please Note Reference Interval Change :51 LIPID CHOL 105 mg/dL (Normal) Comments: <200 mg/dL Desirable 200-240 mg/dL Borderline >240 mg/dL High Risk HDL 29 mg/dL (Abnormal) Comments: Reference Range HDL <40 mg/dL Low HDL Cholesterol HDL >or= 60 mg/dL High HDL Cholesterol LDL 53 mg/dL (Normal) Range: 0-130 TRIG 114 mg/dL (Normal) Comments: Serum Triglycerides Reference Interval Normal <150 mg/dL Borderline high 150 - 199 mg/dL High 200 - 499 mg/dL Very High > or = 500 mg/dL VLDL 23 mg/dL (Normal) Range: 5-40 :51 LIVER ALB 3.7 g/dL (Normal) Range: 3.4-5.0 ALK P 98 U/L (Normal) Range: 50-136 ALT 34 [iU]/L (Normal) Range: 30-65 AST 17 U/L (Normal) Range: 15-37 D BILI 0.12 mg/dL (Normal) Range: 0.00-0.30 T BILI 0.66 mg/dL (Normal) Range: 0.00-1.00 T PROT 7.9 g/dL (Normal) Range: 6.4-8.2 :50 PRO TIME INR 3.2 (Normal) PROTIME 34.7 s (Abnormal) Range: 10.6-13.2 Comments: Please Note Reference Interval Change :53 PRO TIME INR 3.1 (Normal) PROTIME 34.4 s (Abnormal) Range: 11.7-13.3 :53 PRO TIME INR 3.1 (Normal) PROTIME 34.2 s (Abnormal) Range: 11.7-13.3 :59 PRO TIME INR 3.1 (Normal) PROTIME 34.4 s (Abnormal) Range: 11.7-13.3 :37 PRO TIME INR 2.8 (Normal) PROTIME 31.1 s (Abnormal) Range: 11.7-13.3 :40 PRO TIME INR 2.5 (Normal) PROTIME 28.2 s (Abnormal) Range: 11.7-13.3 :40 PRO TIME INR 5.4 (Abnormal) Comments: RESULTS CALLED TO DR PHELAN 10/04/06 MICHELLE MORA.REPORT READ BACK BY SAME . PROTIME 57.0 s (Abnormal) Range: 11.7-13.3 :48 PRO TIME INR 2.8 (Normal) PROTIME 31.7 s (Abnormal) Range: 11.7-13.3 :18 PRO TIME INR 2.1 (Normal) PROTIME 24.9 s (Abnormal) Range: 11.7-13.3 :50 PT/INR, Office (18582) INR 1.9 (Normal) PT (PROTHROMBIN TIME) 16.9 s (Abnormal) Range: 11.5-13.5 :50 HgA1C , Office (20818) HgA1C , Office 6.0 % (Normal) Range: 4.6 - 7.1 :50 Blood Glucose , Office (96820) Blood Glucose , Office 95 (Normal) :59 PRO TIME Comments: OFF COUMADIN 6 DAYS INR 1.0 (Normal) PROTIME 12.9 s (Normal) Range: 11.7-13.3 :18 BMP BUN 26 mg/dL (Abnormal) Range: 7-18 BUN/CRE 21.7 {RATIO} (Abnormal) Range: 10-20 CA 9.8 mg/dL (Normal) Range: 8.5-10.1 CL 103 mmol/L (Normal) Range: 98-107 CO2 26.8 mmol/L (Normal) Range: 22.0-29.0 CREAT,SERUM 1.2 mg/dL (Abnormal) Range: 0.6-1.0 GAP 9 (Normal) Range: 5-15 GLU 102 mg/dL (Normal) Range: 70-110 K 4.3 mmol/L (Normal) Range: 3.5-5.1 NA 139 mmol/L (Normal) Range: 136-145 :18 CBC HCT 38.0 % (Normal) Range: 37-47 HGB 12.9 g/dL (Normal) Range: 12.0-16.0 MCH 31.1 pg (Normal) Range: 27.0-32.0 MCHC 34.0 g/dL (Normal) Range: 32-36 MCV 91.5 fL (Normal) Range: 81-99 PLT 212 K/mm3 (Normal) Range: 150-450 RBC 4.16 {M/mm3} (Abnormal) Range: 4.2-5.4 RDW 13.9 % (Normal) Range: 11.6-14.6 WBC 6.3 K/mm3 (Normal) Range: 4.4-11.0 :18 DIG 0.25 ng/mL (Abnormal) Range: 0.90-2.00 :18 LIVER ALB 4.0 g/dL (Normal) Range: 3.4-5.0 ALK P 100 U/L (Normal) Range: 50-136 ALT 38 [iU]/L (Normal) Range: 30-65 AST 15 U/L (Normal) Range: 15-37 D BILI 0.12 mg/dL (Normal) Range: 0.00-0.30 T BILI 0.68 mg/dL (Normal) Range: 0.00-1.00 T PROT 8.1 g/dL (Normal) Range: 6.4-8.2 :18 MG 2.1 mg/dL (Normal) Range: 1.5-2.2 :18 PFLIP CHOL 189 mg/dL (Normal) Comments: <200 mg/dL Desirable 200-240 mg/dL Borderline >240 mg/dL High Risk HDL 35 mg/dL (Normal) Comments: Reference Range HDL <40 mg/dL Low HDL Cholesterol HDL >or= 60 mg/dL High HDL Cholesterol LDL 127 mg/dL (Normal) Range: 0-130 TRIG 134 mg/dL (Normal) Comments: Serum Triglycerides Reference Interval Normal <150 mg/dL Borderline high 150 - 199 mg/dL High 200 - 499 mg/dL Very High > or = 500 mg/dL VLDL 27 mg/dL (Normal) Range: 5-40 :18 PRO TIME INR 1.8 (Normal) PROTIME 20.8 s (Abnormal) Range: 11.7-13.3 :18 PTT 36.8 s (Abnormal) Range: 24.6-36.6 :18 T3UP T3 UPTAKE 33 % (Normal) Range: 30-39 T7 (FTI) 2.4 (Normal) Range: 1.4-4.5 :18 T4 THYROXIN 7.3 ug/dL (Normal) Range: 4.8-13.9 :18 TSH 2.32 {uIU/mL} (Normal) Range: 0.34-4.82 :26 PRO TIME INR 1.7 (Normal) PROTIME 20.0 s (Abnormal) Range: 11.7-13.3 :13 PRO TIME INR 2.4 (Normal) PROTIME 27.9 s (Abnormal) Range: 11.7-13.3 :40 HgA1C , Office (03392) HgA1C , Office 5.7 % (Normal) Range: 4.6 - 7.1 :40 Blood Glucose , Office (86865) Blood Glucose , Office 115 (Normal) Plan of Care Name Dates Details Instructions Anasarca : Follow up in 3 months Indication: Anasarca Iron deficiency anemia : 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 Indication: Iron deficiency anemia Valvular disease : Reviewed 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 Indication: Valvular disease Lower GI bleed : Reviewed Lab Indication: Lower GI bleed Lower GI bleed : Reviewed 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 Indication: Lower GI bleed Essential hypertension with goal blood pressure less than 130/80 : Reviewed 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 Indication: Essential hypertension with goal blood pressure less than 130/80 Nonsmoker : Eprescribed prescriptions (G8553) Indication: Nonsmoker CKD (chronic kidney disease), stage III : Follow up if no improvement or if symptoms worsen Indication: CKD (chronic kidney disease), stage III Nonsmoker : Eprescribed prescriptions (G8553) Indication: Nonsmoker Lower GI bleed : Eprescribed prescriptions (G8553) Indication: Lower GI bleed Lower GI bleed : Eprescribed prescriptions (G8553) Indication: Lower GI bleed Diabetes mellitus type 2, uncontrolled, without complications : Follow up in 1 week Indication: Diabetes mellitus type 2, uncontrolled, without complications Anasarca : Eprescribed prescriptions (G8553) Indication: Anasarca Lower extremity edema : Follow up in 1 week Indication: Lower extremity edema Diabetes mellitus type II, controlled : Eprescribed prescriptions (G8553) Indication: Diabetes mellitus type II, controlled Lower extremity edema : Follow up - Make appt after diagnostic tests Indication: Lower extremity edema Lower extremity edema : Eprescribed prescriptions (G8553) Indication: Lower extremity edema Anticoagulated : Follow up as needed Indication: Anticoagulated Anemia, unspecified : Eprescribed prescriptions (G8553) Indication: Anemia, unspecified Diabetes mellitus type II, controlled : Eprescribed prescriptions (G8553) Indication: Diabetes mellitus type II, controlled COPD with acute exacerbation (Renamed from Acute exacerbation of chronic obstructive airways disease) : Continue Current Prescription(s) Indication: COPD with acute exacerbation (Renamed from Acute exacerbation of chronic obstructive airways disease) Abnormal lung sounds : Follow up if no improvement or if symptoms worsen Indication: Abnormal lung sounds BMI 50.0-59.9, adult : Eprescribed prescriptions (G8553) Indication: BMI 50.0-59.9, adult Cough : Follow up in 2 days Indication: Cough Nonsmoker : Eprescribed prescriptions (G8553) Indication: Nonsmoker Encounter for screening mammogram for breast cancer (Renamed from Encounter for screening mammogram for malignant neoplasm of breast) : Follow up in 3 -4months Indication: Encounter for screening mammogram for breast cancer (Renamed from Encounter for screening mammogram for malignant neoplasm of breast) Diabetes mellitus type II, controlled : Eprescribed prescriptions (G8553) Indication: Diabetes mellitus type II, controlled Lower GI bleed : Follow up in 3 months Indication: Lower GI bleed Atrial fibrillation : Follow up in 3 months for gen med Indication: Atrial fibrillation Acute renal failure : Reviewed Diagnostic Tests Indication: Acute renal failure Acute renal failure : Reviewed Lab Indication: Acute renal failure Lower GI bleed : Eprescribed prescriptions (G8553) Indication: Lower GI bleed Acute renal failure : Follow up in 6 weeks Indication: Acute renal failure Lower GI bleed : Eprescribed prescriptions ([id number]) Indication: Lower GI bleed Hyperkalemia : Reviewed Lab Indication: Hyperkalemia Acute renal failure : Reviewed Diagnostic Tests Indication: Acute renal failure Cough : Follow up if no improvement or if symptoms worsen Indication: Cough Cough : Eprescribed prescriptions ([id number]) Indication: Cough Nonsmoker : Follow up in 3 months Indication: Nonsmoker Diabetes mellitus type 2, uncontrolled, without complications : Eprescribed prescriptions ([id number]) Indication: Diabetes mellitus type 2, uncontrolled, without complications Diabetes mellitus type 2, uncontrolled, without complications : Follow up in 3 months Indication: Diabetes mellitus type 2, uncontrolled, without complications Diabetes mellitus type 2, uncontrolled, without complications : Eprescribed prescriptions (G8553) Indication: Diabetes mellitus type 2, uncontrolled, without complications Diabetes mellitus type 2, uncontrolled, without complications : Follow up in 3 months Indication: Diabetes mellitus type 2, uncontrolled, without complications Diabetes mellitus type 2, uncontrolled, without complications : Eprescribed prescriptions (G8553) Indication: Diabetes mellitus type 2, uncontrolled, without complications Diabetes mellitus type II, controlled : Eprescribed prescriptions (G8553) Indication: Diabetes mellitus type II, controlled Diabetes mellitus type 2, uncontrolled, without complications : Eprescribed prescriptions (G8553) Indication: Diabetes mellitus type 2, uncontrolled, without complications Diabetes mellitus type II, controlled : Eprescribed prescriptions (G8553) Indication: Diabetes mellitus type II, controlled Encounter for Medicare annual wellness exam : advance planning information Indication: Encounter for Medicare annual wellness exam Diabetes mellitus type II, controlled : Eprescribed prescriptions (G8553) Indication: Diabetes mellitus type II, controlled Diabetes mellitus type II, controlled : Eprescribed prescriptions (G8553) Indication: Diabetes mellitus type II, controlled Diabetes mellitus type II, controlled : Arthritis Overview *: joint pain Indication: Diabetes mellitus type II, controlled Diabetes mellitus type II, controlled : Eprescribed prescriptions (G8553) Indication: Diabetes mellitus type II, controlled Mixed dyslipidemia : Diet, Exercise, and Wt loss Indication: Mixed dyslipidemia Cough : Follow up if no improvement or if symptoms worsen Indication: Cough Cough : Follow up in 2 weeks with [facility] SaturdayNovember 20 Indication: Cough Cough : Follow up in 1 week Indication: Cough Mixed dyslipidemia : Diet, Exercise, and Wt loss Indication: Mixed dyslipidemia Diabetes mellitus type II, controlled : Diet, Exercise, and Wt loss Indication: Diabetes mellitus type II, controlled Diabetes mellitus type II, controlled : Diet, Exercise, and Wt loss Indication: Diabetes mellitus type II, controlled Diabetes mellitus type 2, uncontrolled, without complications : Diabetes and Illness: diabetes mellitus Indication: Diabetes mellitus type 2, uncontrolled, without complications Diabetes mellitus type 2, uncontrolled, without complications : Diabetes and Illness: diabetes Indication: Diabetes mellitus type 2, uncontrolled, without complications Abnormal glucose tolerance test : Diabetes and Illness: diabetes Indication: Abnormal glucose tolerance test Mixed dyslipidemia : Diet, Exercise, and Wt loss Indication: Mixed dyslipidemia Abnormal glucose tolerance test : Diet, Exercise, and Wt loss Indication: Abnormal glucose tolerance test Encounter for immunization : Shingles Vaccine Education 2005 Indication: Encounter for immunization Abnormal glucose tolerance test : Diet, Exercise, and Wt loss Indication: Abnormal glucose tolerance test Pain in joint involving ankle and foot, unspecified laterality : Reviewed Diagnostic Tests Indication: Pain in joint involving ankle and foot, unspecified laterality Atrial fibrillation : FOLLOW UP IN 1 WEEK with [facility] Indication: Atrial fibrillation Mixed dyslipidemia : Diet, Exercise, and Wt loss Indication: Mixed dyslipidemia Cough : MDI Education Indication: Cough Mixed dyslipidemia : FOLLOW UP IN 2 MONTHS Indication: Mixed dyslipidemia FOLLOW UP IN 3 MONTHS Planned Observations Metabolic Panel, Comprehensive ([id number])Indication: CKD (chronic kidney disease), stage III On: :09 Request CBC & PLATELETS (AUTO) ([id number])Indication: Lower GI bleed On: :08 Request PT (PROTHROMBIN TIME) ([id number])Indication: Lower GI bleed On: :08 Request Metabolic Panel, Basic (08743)Indication: Shortness of breath On: :58 Request CBC, Platelets & Auto Diff ([id number])Indication: Shortness of breath On: :55 Request BNTP (31613)Indication: Shortness of breath On: :55 Request BNTP ([id number])Indication: Acute CHF On: 4-Ldl-903842:18 Request METABOLIC PANEL, COMPREHENSIVE ([id number])Indication: Acute CHF On: 6-Mtb-531770:18 Request CBC & PLATELETS (AUTO) ([id number])Indication: Acute CHF On: 0-Oaf-798318:18 Request FERRITIN ([id number])Indication: Iron deficiency anemia On: 1-Puv-830682:22 Request IRON BINDING CAPACITY (TIBC) ([id number])Indication: Iron deficiency anemia On: 0-Jrh-436762:22 Request IRON ([id number])Indication: Iron deficiency anemia On: 8-Ojq-496610:22 Request IRON & TOTAL IRON BINDING CAPACITY ([id number])Indication: Iron deficiency anemia On: 6-Lin-440103:22 Request LIPID PANEL ([id number])Indication: Diabetes mellitus type II, controlled On: 7-Dur-499808:20 Request Metabolic Panel, Comprehensive ([id number])Indication: Acute renal failure On: 2-Qcx-491853:19 Request PT (Prothrobim Time) ([id number])Indication: Walking pneumonia On: 76-Ekx-393138:20 Request PT (PROTHROMBIN TIME) ([id number])Indication: Atrial fibrillation On: 03-May-2017 Request Comments: Standing order Ferritin ([id number])Indication: Anemia, unspecified On: 02-Adb-546688:45 Request Iron ([id number])Indication: Anemia, unspecified On: :45 Request CBC WITH MANUAL DIFF ([id number])Indication: Anemia, unspecified On: :45 Request CBC, Platelets & Auto Diff ([id number])Indication: Lower GI bleed On: :40 Request Comments: Week of February 25, give lab slip HgA1C , Office ([id number])Indication: Diabetes mellitus type II, controlled On: : Request Blood Glucose , Office (53270)Indication: Diabetes mellitus type II, controlled On: :26 Request FERRITIN ([id number])Indication: Anemia, unspecified On: :26 Request HGB (HEMOGLOBIN) ([id number])Indication: Lower GI bleed On: :44 Request MAGNESIUM ([id number])Indication: Acute renal failure On: :11 Request Comments: to be done around January 14 Metabolic Panel, Comprehensive ([id number])Indication: Acute renal failure On: :06 Request Comments: to be done at [place] 01-14 CBC & PLATELETS (AUTO) ([id number])Indication: Acute renal failure On: :06 Request Comments: to be done at [place] on 01-14 URINE SIOBHAN CULTURE-IDENTIFICATN ([id number])Indication: Acute renal failure On: 5-Pfl-602053:55 Request URINALYSIS ([id number])Indication: Acute renal failure On: :51 Request Comments: December 25 Renal function Panel ([id number])Indication: Acute renal failure On: :51 Request Comments: December 25 METABOLIC PANEL, BASIC ([id number])Indication: Abnormal blood finding On: :00 Request CBC, PLATELETS & AUT DIFF ([id number])Indication: Abnormal blood finding On: :00 Request Metabolic Panel, Basic ([id number])Indication: Abnormal blood finding On: 6-Ddi-595157:01 Request Comments: stat CBC WITH MANUAL DIFF ([id number])Indication: Abnormal blood finding On: :17 Request CBC, Platelets & Auto Diff ([id number])Indication: Iron deficiency anemia On: 77-Fhz-876369:15 Request PT (PROTHROMBIN TIME) ([id number])Indication: Atrial fibrillation On: 4-Epr-508575:36 Request Comments: standing order FERRITIN ([id number])Indication: Restless leg syndrome On: :32 Request IRON & TOTAL IRON BINDING CAPACITY ([id number])Indication: Restless leg syndrome On: :32 Request MICROALBUMIN: CREATININE RATIO (97141) AND ([id number])Indication: Restless leg syndrome On: :32 Request VITAMIN B12 AND FOLATES ([id number])Indication: Restless leg syndrome On: : Request CALCIFEDIOL ([id number])Indication: Restless leg syndrome On: : Request TSH (THYROID STIMULATING HORMONE) ([id number])Indication: Restless leg syndrome On: :32 Request LIPID PANEL (84969)Indication: Mixed dyslipidemia On: :32 Request METABOLIC PANEL, COMPREHENSIVE (52819)Indication: BMI 45.0-49.9, adult On: :32 Request CBC, PLATELETS & AUT DIFF (10940)Indication: BMI 45.0-49.9, adult On: :32 Request FERRITIN (50282)Indication: Iron deficiency anemia On: :20 Request IRON & TOTAL IRON BINDING CAPACITY ([id number])Indication: Iron deficiency anemia On: :20 Request LIPID PANEL (83938)Indication: Mixed dyslipidemia On: :20 Request TSH (THYROID STIMULATING HORMONE) ([id number])Indication: Mild vitamin D deficiency On: :19 Request VITAMIN B12 AND FOLATES ([id number])Indication: Mild vitamin D deficiency On: :19 Request CALCIFEDIOL (32057)Indication: Mild vitamin D deficiency On: :19 Request METABOLIC PANEL, COMPREHENSIVE ([id number])Indication: Diabetes mellitus type 2, uncontrolled, without complications On: :19 Request CBC, PLATELETS & AUT DIFF ([id number])Indication: Diabetes mellitus type 2, uncontrolled, without complications On: Request LDH (LD) (LACTATE DEHYDROGENASE) (04177)Indication: Anemia, unspecified On: Request FOLIC ACID SERUM (17210)Indication: Anemia, unspecified On: Request SPEP ([id number])Indication: Anemia, unspecified On: Request UPEP ([id number])Indication: Anemia, unspecified On: Request FERRITIN ([id number])Indication: Anemia, unspecified On: Request IRON ([id number])Indication: Anemia, unspecified On: Request VITAMIN B-12 (CYANOCOBALAMIN) ([id number])Indication: Anemia, unspecified On: Request YFGYB-SDMFZYYFBLZ-ICEBO (89843)Indication: Other chronic nonalcoholic liver disease On: Request CBC with auto diff ([id number])Indication: Essential hypertension with goal blood pressure less than 130/80 On: Request HGB A1C (94939)Indication: Diabetes mellitus type II, controlled On: Request MICROALBUMIN: CREATININE RATIO (98688) AND ([id number])Indication: Diabetes mellitus type II, controlled On: Request LIPID PANEL (84134)Indication: Mixed dyslipidemia On: Request Metabolic Panel, Basic ([id number])Indication: Diabetes mellitus type 2, uncontrolled, without complications On: Request MICROALBUMIN: CREATININE RATIO (22839) AND ([id number])Indication: Diabetes mellitus type II, controlled On: : Request METABOLIC PANEL, COMPREHENSIVE (07563)Indication: Diabetes mellitus type II, controlled On: : Request LIPID PANEL (22925)Indication: Mixed dyslipidemia On: Request CBC (AUTO) ([id number])Indication: Anemia, unspecified On: 59 Request Vitamin D Hydroxy (05045)Indication: Mild vitamin D deficiency On: 95-Yso-76827:59 Request XEPRE-HJGXZIVCHPY-WTHZM ([id number])Indication: Other chronic nonalcoholic liver disease On: :57 Request CBC with auto diff (66753)Indication: Pulmonary hypertension On: :50 Request Hemoglobin Glyclated (HGB A1C) ([id number])Indication: Diabetes mellitus type II, controlled On: :50 Request METABOLIC PANEL, COMPREHENSIVE ([id number])Indication: Essential hypertension with goal blood pressure less than 130/80 On: :49 Request LIPID PANEL (24517)Indication: Mixed dyslipidemia On: :49 Request LIPID PANEL (14358)Indication: Diabetes mellitus type II, controlled On: :49 Request HEPATIC FUNCTION PANEL ([id number])Indication: Diabetes mellitus type II, controlled On: :49 Request Vitamin D Hydroxy (48169)Indication: Mild vitamin D deficiency On: :30 Request METABOLIC PANEL, COMPREHENSIVE (75493)Indication: Diabetes mellitus type II, controlled On: :30 Request LIPID PANEL (26617)Indication: Mixed dyslipidemia On: :30 Request RXWKW-OEURNTPZJUS-NRUBD (21073)Indication: Other chronic nonalcoholic liver disease On: :29 Request CBC with auto diff (74572)Indication: Anemia, unspecified On: :29 Request MICROALBUMIN: CREATININE RATIO (07778) AND ([id number])Indication: Diabetes mellitus type II, controlled On: :24 Request METABOLIC PANEL, COMPREHENSIVE (39226)Indication: Essential hypertension with goal blood pressure less than 130/80 On: :24 Request Vitamin D Hydroxy (10540)Indication: Mild vitamin D deficiency On: :24 Request LIPID PANEL (67105)Indication: Mixed dyslipidemia On: :24 Request LDH (LD) (LACTATE DEHYDROGENASE) (21725)Indication: Anemia, unspecified On: :24 Request VITAMIN B-12 (CYANOCOBALAMIN) ([id number])Indication: Anemia, unspecified On: :24 Request IRON BINDING CAPACITY (TIBC) ([id number])Indication: Anemia, unspecified On: :24 Request FERRITIN ([id number])Indication: Anemia, unspecified On: :24 Request IRON ([id number])Indication: Anemia, unspecified On: :24 Request CBC W/AUTO DIFF WBC (54741)Indication: Anemia, unspecified On: :24 Request LIPID PANEL ([id number])Indication: Mixed dyslipidemia On: : Request METABOLIC PANEL, COMPREHENSIVE (99644)Indication: Essential hypertension with goal blood pressure less than 130/80 On: :02 Request CBC (AUTO) ([id number])Indication: Anemia, unspecified On: : Request Vitamin D Hydroxy (05045)Indication: Mild vitamin D deficiency On: : Request VPWVK-PXEDWNBNMJR-TFFJC ([id number])Indication: Other chronic nonalcoholic liver disease On: : Request PTT (Activated Partial Thromboplastin Time) ([id number])Indication: Other chronic nonalcoholic liver disease On: : Request PT (Prothrobim Time) ([id number])Indication: Other chronic nonalcoholic liver disease On: : Request PT (Prothrobim Time) ([id number])Indication: Atrial fibrillation On: :28 Request Comments: STANDING ORDER CBC WITH MANUAL DIFF ([id number])Indication: Anemia, unspecified On: :53 Request LIPID PANEL (90794)Indication: Mixed dyslipidemia On: :53 Request MICROALBUMIN: CREATININE RATIO (64710) AND (77757)Indication: Diabetes mellitus type II, controlled On: 52-Ozf-881389:52 Request METABOLIC PANEL, COMPREHENSIVE ([id number])Indication: Diabetes mellitus type II, controlled On: 36-Zgi-633188:52 Request Vitamin D Hydroxy (13365)Indication: Mild vitamin D deficiency On: :52 Request Vitamin D Hydroxy (89451)Indication: Mild vitamin D deficiency On: :13 Request LIPID PANEL ([id number])Indication: Mixed dyslipidemia On: :12 Request URIC ACID BLOOD ([id number])Indication: Gout On: :12 Request RKSAX-CYLYPRDMDAX-UPKZH ([id number])Indication: Other chronic nonalcoholic liver disease On: :12 Request PTT (Activated Partial Thromboplastin Time) ([id number])Indication: Other chronic nonalcoholic liver disease On: :12 Request METABOLIC PANEL, COMPREHENSIVE ([id number])Indication: Essential hypertension with goal blood pressure less than 130/80 On: :12 Request CBC WITH MANUAL DIFF ([id number])Indication: Anemia, unspecified On: 76-Hwk-511971:11 Request PT (Prothrobim Time) ([id number])Indication: Atrial fibrillation On: 49-Zdm-252994:59 Request Comments: STANDING ORDER HEPATIC FUNCTION PANEL ([id number])Indication: Mixed dyslipidemia On: 58-Iyn-835782:56 Request CBC WITH MANUAL DIFF ([id number])Indication: Gout On: :08 Request LIPID PANEL ([id number])Indication: Mixed dyslipidemia On: :08 Request METABOLIC PANEL, COMPREHENSIVE (52392)Indication: Diabetes mellitus type II, controlled On: 40-Ctj-963342:08 Request MICROALBUMIN: CREATININE RATIO (31891) AND ([id number])Indication: Diabetes mellitus type II, controlled On: :08 Request Metabolic Panel, Basic ([id number])Indication: Hyperkalemia On: 11-Ywa-598791:40 Request PT (Prothrobim Time) ([id number])Indication: Atrial fibrillation On: 9-Tic-089342:35 Request LIPID PANEL (32858)Indication: Mixed dyslipidemia On: 33-Vdk-689654:34 Request METABOLIC PANEL, COMPREHENSIVE (02475)Indication: Diabetes mellitus type II, controlled On: 49-Ols-287448:33 Request MICROALBUMIN: CREATININE RATIO (01234) AND ([id number])Indication: Diabetes mellitus type II, controlled On: :33 Request CBC WITH MANUAL DIFF ([id number])Indication: Anemia, unspecified On: 32-Atv-326494:33 Request CBC WITH MANUAL DIFF (02903)Indication: Anemia, unspecified On: 63-Yju-061650:07 Request METABOLIC PANEL, COMPREHENSIVE (97276)Indication: Renal insufficiency (Renamed from Renal function impairment) On: :06 Request MICROALBUMIN: CREATININE RATIO ([id number]) AND ([id number])Indication: Diabetes mellitus type II, controlled On: :06 Request LIPID PANEL (39211)Indication: Mixed dyslipidemia On: 95-Cql-994323:06 Request QKKPZ-BJXWWBTVDOX-PGYJZ ([id number])Indication: Other chronic nonalcoholic liver disease On: :06 Request Vitamin D Hydroxy (12387)Indication: Mild vitamin D deficiency On: :05 Request Vitamin D Hydroxy (76193)Indication: Mild vitamin D deficiency On: 23-Cgz-758916:08 Request FLURESCNT ANTIB SCRN EA ([id number]) celiac profileIndication: Anemia, unspecified On: :08 Request IGA/IGD/IGG/IGM-EACH (98389) celiac profileIndication: Anemia, unspecified On: :08 Request IMMUNOASSAY, ANALYTE (NON-INFECT) (81697) celiac profileIndication: Anemia, unspecified On: 74-Iyf-285016:08 Request METABOLIC PANEL, COMPREHENSIVE (04983)Indication: Diabetes mellitus type 2, uncontrolled, without complications On: 69-Knk-352416:06 Request CBC with manual diff ([id number])Indication: Anemia, unspecified On: 28-Wdy-856724:49 Request Iron Binding Capacity (TIBC) ([id number])Indication: Anemia, unspecified On: 14-Nkt-781085:49 Request Iron ([id number])Indication: Anemia, unspecified On: :49 Request Ferritin (28157)Indication: Anemia, unspecified On: 78-Uej-988940:49 Request Metabolic Panel, Basic ([id number])Indication: Abnormal blood chemistry On: :09 Request LIPID PANEL (25028)Indication: Mixed dyslipidemia On: 45-Nms-183219:02 Request Metabolic Panel, Basic (21890)Indication: Renal insufficiency (Renamed from Renal function impairment) On: 94-Bdz-390397:01 Request IRON ([id number])Indication: Anemia, unspecified On: 92-Zxz-934404:32 Request Vitamin D Hydroxy (75796)Indication: Mild vitamin D deficiency On: 43-Drf-896651:49 Request LIPID PANEL (94513)Indication: Mixed dyslipidemia On: 05-Fks-871878:48 Request CBC WITH MANUAL DIFF ([id number])Indication: Anemia, unspecified On: 92-Ktd-057641:48 Request METABOLIC PANEL, COMPREHENSIVE (39382)Indication: Abnormal glucose tolerance test On: 55-Xdd-911802:48 Request MICROALBUMIN: CREATININE RATIO (48135) AND ([id number])Indication: Abnormal glucose tolerance test On: :48 Request CALCIFEDIOL ([id number])Indication: Mild vitamin D deficiency On: 0-Pjk-636031:16 Request LIPID PANEL (10453)Indication: Mixed dyslipidemia On: 6-Krq-021937:16 Request METABOLIC PANEL, COMPREHENSIVE ([id number])Indication: Mixed dyslipidemia On: 4-Cfr-445235:16 Request URINALYSIS ([id number])Indication: Essential hypertension with goal blood pressure less than 130/80 On: 2-Zrw-015430:16 Request CBC with manual diff ([id number])Indication: Essential hypertension with goal blood pressure less than 130/80 On: 9-Ruk-672442:16 Request LDH (LD) (LACTATE DEHYDROGENASE) ([id number])Indication: Essential hypertension with goal blood pressure less than 130/80 On: 2-Uok-949121:16 Request Iron ([id number])Indication: Essential hypertension with goal blood pressure less than 130/80 On: 8-Tws-413133:16 Request Ferritin ([id number])Indication: Essential hypertension with goal blood pressure less than 130/80 On: 3-Sye-181958:16 Request URIC ACID BLOOD (89293)Indication: Gout On: 05-Snv-019080:49 Request LDH (LD) (LACTATE DEHYDROGENASE) ([id number])Indication: Anemia, unspecified On: 02-Vwf-887776:26 Request URIC ACID BLOOD ([id number])Indication: Gout On: 0-Xlf-318047:19 Request URIC ACID BLOOD (35302)Indication: Gout On: 5-Wvv-385864:16 Request TSH (THYROID STIMULATING HORMONE) ([id number])Indication: Mixed dyslipidemia On: :29 Request URINALYSIS ([id number])Indication: Mixed dyslipidemia On: 80-Jjz-542039:28 Request LIPID PANEL (21774)Indication: Mixed dyslipidemia On: :27 Request CBC, PLATELETS & AUT DIFF ([id number])Indication: Mixed dyslipidemia On: :18 Request METABOLIC PANEL, COMPREHENSIVE (13910)Indication: Mixed dyslipidemia On: :17 Request CALCIFEDIOL (12772)Indication: Mild vitamin D deficiency On: :16 Request HgA1C , Office (08117)Indication: Abnormal glucose tolerance test On: :59 Request METABOLIC PANEL, BASIC (06861)Indication: Atrial fibrillation On: :30 Request METABOLIC PANEL, BASIC (14158)Indication: Atrial fibrillation On: :59 Request CBC WITH MANUAL DIFF ([id number])Indication: Atrial fibrillation On: :11 Request METABOLIC PANEL, COMPREHENSIVE ([id number])Indication: Other chronic nonalcoholic liver disease On: :10 Request LIPID PANEL (29989)Indication: Mixed dyslipidemia On: :10 Request LIPID PANEL (36164)Indication: Mixed dyslipidemia On: :11 Request CBC WITH MANUAL DIFF ([id number])Indication: Abnormal glucose tolerance test On: 9-Mxc-623553:11 Request MICROALBUMIN: CREATININE RATIO ([id number]) AND (15211)Indication: Abnormal glucose tolerance test On: 9-Drq-082527:11 Request Vitamin D Hydroxy (66071)Indication: Mild vitamin D deficiency On: :11 Request METABOLIC PANEL, COMPREHENSIVE (33999)Indication: Other chronic nonalcoholic liver disease On: :10 Request METABOLIC PANEL, COMPREHENSIVE ([id number])Indication: Abnormal glucose tolerance test On: 31-Oqq-277219:10 Request MICROALBUMIN: CREATININE RATIO (41336) AND ([id number])Indication: Abnormal glucose tolerance test On: 36-Xne-982201:10 Request LIPID PANEL (89781)Indication: Mixed dyslipidemia On: 67-Qtr-273033:10 Request Vitamin D Hydroxy (90417)Indication: Osteopenia On: 84-Erm-120639:10 Request LIPID PANEL (78287)Indication: Mixed dyslipidemia On: 54-Naw-669610:48 Request Vitamin D Hydroxy (19394)Indication: Mild vitamin D deficiency On: :48 Request CBC WITH MANUAL DIFF (85771)Indication: Abnormal glucose tolerance test On: :47 Request METABOLIC PANEL, COMPREHENSIVE ([id number])Indication: Abnormal glucose tolerance test On: 65-Gia-510746:47 Request LIPID PANEL (55311)Indication: Mixed dyslipidemia On: 97-Fnc-999017:39 Request METABOLIC PANEL, COMPREHENSIVE (83863)Indication: Hypercalcemia On: 25-Jvr-414098:38 Request Vitamin D Hydroxy (11359)Indication: Mild vitamin D deficiency On: :38 Request CBC (AUTO) ([id number])Indication: Abnormal glucose tolerance test On: 25-War-104215:28 Request Vitamin D Hydroxy (75805)Indication: Osteopenia On: :28 Request CBC WITH MANUAL DIFF ([id number])Indication: Essential hypertension with goal blood pressure less than 130/80 On: 91-Xjn-773515:28 Request MICROALBUMIN: CREATININE RATIO (50426) AND (59761)Indication: Abnormal glucose tolerance test On: :28 Request METABOLIC PANEL, COMPREHENSIVE ([id number])Indication: Hypercalcemia On: 19-Ovd-580136:27 Request Vitamin D Hydroxy ([id number])Indication: Osteopenia On: 63-Fnt-612348:34 Request Metabolic Panel, Basic (93539)Indication: Hyperkalemia On: 92-Qae-768645:04 Request Comments: 1 week LIPID PANEL (27672)Indication: Mixed dyslipidemia On: 15-Bxr-367924:34 Request TSH ([id number])Indication: Essential hypertension with goal blood pressure less than 130/80 On: 74-Anf-421567:34 Request CBC WITH MANUAL DIFF ([id number])Indication: Essential hypertension with goal blood pressure less than 130/80 On: 79-Giq-274500:34 Request METABOLIC PANEL, COMPREHENSIVE (02529)Indication: Abnormal glucose tolerance test On: 66-Plc-678259:34 Request PT/INR, Office (35011)Indication: Atrial fibrillation On: :55 Request PT/INR, Office ([id number])Indication: Atrial fibrillation On: 3-Mzs-715505:36 Request PT (Prothrobim Time) ([id number])Indication: Atrial fibrillation On: :58 Request METABOLIC PANEL, COMPREHENSIVE ([id number])Indication: Essential hypertension with goal blood pressure less than 130/80 On: :09 Request CBC WITH MANUAL DIFF ([id number])Indication: Essential hypertension with goal blood pressure less than 130/80 On: 10-Odn-471367:09 Request MICROALBUMIN: CREATININE RATIO (18386) AND ([id number])Indication: Abnormal glucose tolerance test On: :09 Request HEPATIC FUNCTION PANEL (30979) On: 81-Vis-305674:07 Request LIPID PANEL ([id number])Indication: Mixed dyslipidemia On: :07 Request PT/INR, Office (26122)Indication: Atrial fibrillation On: 97-Ied-885689:19 Request Comments: done>Wf. PT/INR, Office (92536)Indication: Atrial fibrillation On: 92-Wvl-058425:30 Request METABOLIC PANEL, COMPREHENSIVE (56431)Indication: Essential hypertension with goal blood pressure less than 130/80 On: 89-Gjy-745714:34 Request CBC WITH MANUAL DIFF ([id number])Indication: Essential hypertension with goal blood pressure less than 130/80 On: 82-Fqs-099597:34 Request HEPATIC FUNCTION PANEL (71091)Indication: Mixed dyslipidemia On: 55-Lmt-666773:34 Request LIPID PANEL (74105)Indication: Mixed dyslipidemia On: 75-Fvd-592032:34 Request LIPID PANEL (09705)Indication: Mixed dyslipidemia On: 99-Riq-230763:51 Request URINALYSIS W/O MICRO ([id number])Indication: Essential hypertension with goal blood pressure less than 130/80 On: 78-Oqn-577051:51 Request TSH ([id number])Indication: Essential hypertension with goal blood pressure less than 130/80 On: 52-Cqs-944967:51 Request CBC WITH MANUAL DIFF ([id number])Indication: Essential hypertension with goal blood pressure less than 130/80 On: 36-Ynt-801524:51 Request METABOLIC PANEL, COMPREHENSIVE (87787)Indication: Essential hypertension with goal blood pressure less than 130/80 On: 72-Hqv-418534:51 Request TSH ([id number])Indication: Essential hypertension with goal blood pressure less than 130/80 On: 24-Lgk-894196:44 Request METABOLIC PANEL, COMPREHENSIVE (65343)Indication: Essential hypertension with goal blood pressure less than 130/80 On: [id number]-[id number] Request CBC WITH MANUAL DIFF ([id number])Indication: Essential hypertension with goal blood pressure less than 130/80 On: [id number]-[id number]:44 Request MICROALBUMIN URINE QUANT ([id number])Indication: Abnormal glucose tolerance test On: :59 Request METABOLIC PANEL, COMPREHENSIVE ([id number])Indication: Abnormal glucose tolerance test On: :57 Request CBC WITH MANUAL DIFF ([id number])Indication: Abnormal glucose tolerance test On: :57 Request LIPID PANEL ([id number])Indication: Mixed dyslipidemia On: :56 Request HEPATIC FUNCTION PANEL ([id number])Indication: Mixed dyslipidemia On: :56 Request HEPATIC FUNCTION PANEL ([id number])Indication: Mixed dyslipidemia On: :11 Request LIPID PANEL ([id number])Indication: Mixed dyslipidemia On: 09-Vzj-[id number]:11 Request Planned Encounters Medical; 3 Month FU - On: 10-Sep-2018 9:15 [facility] Sara Swartz CNP, CNP, Mary E Planned Procedures Aerosol Treatment ([id number])By: On: 08-Aug-2017 Intent Kaykay Layne Comments: Exp wheeze still heard after aerosol treatment-better air exchange though. Solu- Medrol Injection, 125mg On: 08-Aug-2017 Intent ([id number])By: Kaykay Layne Comments: lot [id number] mgleft gm IMas, [employer] Rocephin Injection, 2 Gram On: 06-Aug-2017 Intent ([id number])By: Kaykay Layne CHEST XRAY, PA & LATERAL On: 06-Aug-2017 Intent ([id number])By: Kaykay Layne Aerosol Treatment ([id number])By: On: 06-Aug-2017 Intent Kaykay Layne RIGHT BREAST ULTRASOUND ([id number])By: On: 26-Jul-2017 Intent Sara Swartz CNP, CNP, Mary E SCREENING DIGITAL TOMOSYNTHESIS OF On: 20-May-2017 Intent BREAST ([id number])By: Sara Swartz CNP, CNP, Mary E Flu Vaccine (Quadrivalent) On: 20-May-2017 Intent [id number]: Sara Swartz CNP Comments: Lot:[id number]:11/2017Dose:0.5mLRoute:IMSite:L DltdGiven By:mlVIS signed Sara HENRY MAMMOGRAM, SCREENING, BOTH BREAST On: 26-Jun-2016 Intent ([id number])By: Jacinto Sheehan MD DEXA SCAN AXIAL SKELETON On: 27-Mar-2016 Intent ([id number])By: Jacinto Sheehan MD Ultrasound - LiverBy: Jarad RUIZ, On: 19-Dec-2015 Intent Brittany Caro PNEUM VAC ADLT/IMUMNOSPR, On: 05-Jul-2015 Intent SBC/INTRM ([id number])By: Raghu Downing Comments: PNEUMOlot:[id number]:1*13*17site:LT deltoidroute:IMdose:.5mlDEMICK, SMA MAMMOGRAM, SCREENING, BOTH BREAST On: 15-Jun-2015 Intent ([id number])By: Brittany Abraham DO Cartoid DopplerBy: Brittany Abraham DO On: 15-Jun-2015 Intent A Flu Vaccine (Quadrivalent) On: 15-Jun-2015 Intent [id number]: Brittany Abraham DO Comments: Lot #:[id number] date: 01/2016Amount given:prefilled syringeSite given:L Dltd, IMGiven by: AYAKA Morris and ABN signed ADMINISTRATION OF INFLUENZA VIRUS On: 15-Jun-2015 Intent VACCINE ([id number])By: Brittany Abraham DO Overnight Pulse OX ([id number])By: Jarad On: 18-Mar-2015 Intent Brittany RUIZ PFT - CompleteBy: Brittany Abraham DO On: 18-Mar-2015 Intent Radiology - Knee - Right - Weight On: 28-Jun-2014 Intent BearingBy: Brittany Abraham DO Radiology - Knee - Left - Weight On: 28-Jun-2014 Intent BearingBy: Brittany Abraham DO Prevnar 13 ([id number])By: Jarad RUIZ, On: 08-Jun-2014 Intent Brittany Caro Comments: [id number] arm, IMMegan MAMMOGRAM, SCREENING, BOTH BREAST On: 08-Jun-2014 Intent ([id number])By: Brittany Abraham DO Comments: end jul Ultrasound - LiverBy: Jarad RUIZ, On: 08-Dec-2013 Intent Brittany Caro Inhaler Demonstration ([id number])By: On: 20-Nov-2013 Intent Tia HENRY, Magaly Tia HENRY, Sara Mc Aerosol Treatment ([id number])By: Tia On: 20-Nov-2013 Intent Sara HENRY E Sara Swartz CNP Radiology - ChestBy: Miltongordo CARL, On: 04-Nov-2013 Intent Sara Bear CNP Comments: To be Done satNovember 18 Aerosol Treatment ([id number])By: Tia On: 03-Nov-2013 Intent Sara HENRY CNP, Mary E Radiology - ChestBy: Tia HENRY, On: 03-Nov-2013 Intent [facility]NP [facility] E[facility] prescriptions On: 08-Sep-2013 Intent ([id number])By: Ariane Hartman MAMMOGRAM, SCREENING, BOTH BREASTS On: 01-May-2013 Intent ([id number])By: Brittany Abraham DO Comments: jul DXA, BONE DENSITY, AXIAL SKELETON On: 01-May-2013 Intent ([id number])By: Brittany Abraham DO Comments: jul FLU VAC, SPLIT, >3 YEARS, On: 01-May-2013 Intent INTRAMUSC ([id number])By: Minnie, Comments: Lot #:[id number] date:mount given:0.5mlRoute: IMSite given: L dltdVIS and ABN signedGiven by: LILY Payton ADMINISTRATION OF INFLUENZA VIRUS On: 01-May-2013 Intent VACCINE (G0008)By: Ariane Hartman Eprescribed prescriptions On: 01-May-2013 Intent (G8553)By: Ariane Hartman Eprescribed prescriptions On: 30-Jan-2013 Intent (G8553)By: Ariane Hartman Eprescribed prescriptions On: 31-Oct-2012 Intent (G8553)By: Ariane Hartman Eprescribed prescriptions On: 28-Jul-2012 Intent (G8553)By: Ariane Hartman MAMMOGRAM, SCREENING, BOTH BREASTS On: 07-Jul-2012 Intent ([id number])By: Brittany Abraham DO Eprescribed prescriptions On: 07-Apr-2012 Intent (G8553)By: Ariane Hartman TDAP VACCINE >7 IM ([id number])By: On: 03-Dec-2011 Intent Ariane Hartman Comments: Lot:[id number]:07/12/13Amt:prefilledRoute:IMSite:left deltGiven By: THERESA Hinson Doppler Ultrasound OtherBy: Fast On: 03-Dec-2011 Intent Brittany RUIZ Comments: both legs stat call wet read Breast Screening - BilateralBy: On: 08-Jun-2011 Intent Brittany Abraham DO FLU VAC, SPLIT, >3 YEARS, On: 05-Jun-2011 Intent INTRAMUSC ([id number])By: Minnie, Comments: Lot #:[id number] date:mount given:0.5mlRoute: IMSite given:left deltGiven by: LILY Payton ADMINISTRATION OF INFLUENZA VIRUS On: 05-Jun-2011 Intent VACCINE (G0008)By: Ariane Hartman Eprescribed prescriptions On: 14-Feb-2011 Intent (G8553)By: Brittany Abraham DO IMMUNIZ ADMNIN, 1 VAC, SNGL/COMBO On: 30-Nov-2010 Intent (84689)By: Mona Merritt LPN Comments: Lot #[id number]-01/02/12Site- left arnDose 0.7given by:Eveline ZOSTER VACC[place] ([id number])By: René On: 30-Nov-2010 Intent Mona CARDENAS ADMINISTRATION OF INFLUENZA VIRUS On: 23-May-2010 Intent VACCINE (G0008)By: Ailyn Jones RN FLU VAC, SPLIT, >3 YEARS, On: 23-May-2010 Intent INTRAMUSC (85047)By: Robert ROYAL, Comments: Lot #: [id number] date: mount given: 0.5 mlRoute: IMSite given: left deltoidGiven by: LELE Nguyen DXA, BONE DENSITY, AXIAL SKELETON On: 09-May-2010 Intent ([id number])By: Brittany Abraham DO Comments: nov MAMMOGRAM, SCREENING, BOTH BREASTS On: 09-May-2010 Intent ([id number])By: Brittany Abraham DO Comments: end jun Doppler Ultrasound OtherBy: [place] On: 27-Dec-2009 Intent Sara HENRY E Tia HENRY, Sara Mc Comments: left leg, today, call wet read Radiology - Foot - LeftBy: [place] On: 27-Dec-2009 Intent Sara HENRY E Tia HENRY, Sara Mc Comments: today call wet read MAMMOGRAM, SCREENING, BOTH BREASTS On: 24-Jun-2009 Intent ([id number])By: Maral Krishnan Inhaler Demo ([id number])By: Shelton RUIZ, On: 09-Jun-2009 Intent [facility] - Chest- PA and LatBy: On: 09-Jun-2009 Intent Chikis Peoples DO Aerosol Treatment ([id number])By: On: 09-Jun-2009 Intent Chikis Peoples DO Comments: less irritablilty Wax Currettes (54879)By: Shelton On: 09-Jun-2009 Intent Chikis RUIZ Comments: tolerated well - clean -currette used Ear Irrigation (93727)By: Shelton On: 09-Jun-2009 Intent Chikis RUIZ Comments: pt tolerated well Spirometry ([id number])By: Shelton RUIZ On: 09-Jun-2009 Intent Chikis Comments: poor effort started to have coughing fit FLU VAC, SPLIT, >3 YEARS, On: 19-May-2009 Intent INTRAMUSC ([id number])By: Ailyn Jones RN IMMUNIZ ADMNIN, 1 VAC, SNGL/COMBO On: 19-May-2009 Intent ([id number])By: Ailyn Jones RN Echo CompleteBy: Brittany Abraham DO On: 23-Feb-2009 Intent Echo CompleteBy: Brittany Abraham DO On: 10-Jan-2009 Intent PNEUM VAC ADLT/IMUMNOSPR, On: 02-Aug-2008 Intent SBC/INTRM ([id number])By: Ran, Comments: Lot #[id number] date:mount given:0.5Site given: right deltoidGiven by:Wf. Rios ADMINISTRATION OF PNEUMOCOCCAL On: 02-Aug-2008 Intent VACCINE (G0009)By: Blanca Tong DXA, BONE DENSITY, AXIAL SKELETON On: 06-Apr-2008 Intent ([id number])By: Fast DO, Brittany A FLU VAC, SPLIT, >3 YEARS, On: 13-Jun-2007 Intent INTRAMUSC (96193)By: Savannah Vargas IMMUNIZ ADMNIN, 1 VAC, SNGL/COMBO On: 13-Jun-2007 Intent ([id number])By: Savannah Vargas Overnight Pulse Ox(03454)By: On: 05-May-2007 Intent Blanca Tong Echo CompleteBy: Fast DO, Brittany A On: 18-Apr-2007 Intent Overnight Pulse OX ([id number])By: Fast On: 18-Apr-2007 Intent DO, Brittany A MAMMOGRAM, SCREENING, BOTH BREASTS On: 14-May-2006 Intent ([id number])By: Jarad DO, Brittany A EKG ([id number])By: Fast DO, Brittany A On: 14-May-2006 Intent Echo CompleteBy: Fast DO, Brittany A On: 14-May-2006 Intent Planned Medications INJECTION, CEFTRIAXONE SODIUM, PER 250 MG Ordered: 06-Aug-2017 Pending Kaykay Layne INJECTION, METHYLPREDNISOLONE SODIUM SUCCINATE, UP TO 125 MG Ordered: 08-Aug-2017 Pending Kaykay Layne Instructions Name Dates Details CKD (chronic kidney disease), stage III : DISCONTINUED - CBC, PLATELETS & AUT DIFF ([id number]) Indication: CKD (chronic kidney disease), stage III CKD (chronic kidney disease), stage III : DISCONTINUED - METABOLIC PANEL, COMPREHENSIVE ([id number]) Indication: CKD (chronic kidney disease), stage III Nonsmoker : How to access health information online Indication: Nonsmoker Nonsmoker : How to access health information online - Detail Indication: Nonsmoker Nonsmoker : Patient Instructions Indication: Nonsmoker Nonsmoker : How to access health information online Indication: Nonsmoker Nonsmoker : How to access health information online - Detail Indication: Nonsmoker Nonsmoker : Patient Instructions Indication: Nonsmoker Lower GI bleed : How to access health information online Indication: Lower GI bleed Lower GI bleed : How to access health information online - Detail Indication: Lower GI bleed Lower GI bleed : Patient Instructions Indication: Lower GI bleed Lower GI bleed : How to access health information online Indication: Lower GI bleed Lower GI bleed : How to access health information online - Detail Indication: Lower GI bleed Lower GI bleed : Patient Instructions Indication: Lower GI bleed Anasarca : How to access health information online Indication: Anasarca Anasarca : How to access health information online - Detail Indication: Anasarca Anasarca : Patient Instructions Indication: Anasarca Diabetes mellitus type II, controlled : How to access health information online Indication: Diabetes mellitus type II, controlled Diabetes mellitus type II, controlled : How to access health information online - Detail Indication: Diabetes mellitus type II, controlled Diabetes mellitus type II, controlled : Patient Instructions Indication: Diabetes mellitus type II, controlled Lower extremity edema : How to access health information online Indication: Lower extremity edema Lower extremity edema : How to access health information online - Detail Indication: Lower extremity edema Lower extremity edema : Patient Instructions Indication: Lower extremity edema Anemia, unspecified : How to access health information online Indication: Anemia, unspecified Anemia, unspecified : How to access health information online - Detail Indication: Anemia, unspecified Anemia, unspecified : Patient Instructions Indication: Anemia, unspecified Diabetes mellitus type II, controlled : How to access health information online Indication: Diabetes mellitus type II, controlled Diabetes mellitus type II, controlled : How to access health information online - Detail Indication: Diabetes mellitus type II, controlled Diabetes mellitus type II, controlled : Patient Instructions Indication: Diabetes mellitus type II, controlled BMI 50.0-59.9, adult : How to access health information online Indication: BMI 50.0-59.9, adult BMI 50.0-59.9, adult : How to access health information online - Detail Indication: BMI 50.0-59.9, adult COPD with acute exacerbation (Renamed from Acute exacerbation of chronic obstructive airways disease) : Patient Instructions Indication: COPD with acute exacerbation (Renamed from Acute exacerbation of chronic obstructive airways disease) Nonsmoker : How to access health information online Indication: Nonsmoker Nonsmoker : How to access health information online - Detail Indication: Nonsmoker Walking pneumonia : Patient Instructions Indication: Walking pneumonia Atrial fibrillation : DISCONTINUED - PT (PROTHROMBIN TIME) (10074) Indication: Atrial fibrillation Atrial fibrillation : DISCONTINUED - PT (PROTHROMBIN TIME) (71155) Indication: Atrial fibrillation Lower GI bleed : DISCONTINUED - CBC, PLATELETS & AUT DIFF (50299) Indication: Lower GI bleed Lower GI bleed : DISCONTINUED - METABOLIC PANEL, COMPREHENSIVE (36756) Indication: Lower GI bleed Diabetes mellitus type II, controlled : How to access health information online Indication: Diabetes mellitus type II, controlled Diabetes mellitus type II, controlled : How to access health information online - Detail Indication: Diabetes mellitus type II, controlled Diabetes mellitus type II, controlled : Patient Instructions Indication: Diabetes mellitus type II, controlled Lower GI bleed : Patient Instructions Indication: Lower GI bleed Lower GI bleed : How to access health information online Indication: Lower GI bleed Lower GI bleed : How to access health information online - Detail Indication: Lower GI bleed Lower GI bleed : How to access health information online Indication: Lower GI bleed Lower GI bleed : How to access health information online - Detail Indication: Lower GI bleed Lower GI bleed : Patient Instructions Indication: Lower GI bleed Hyperkalemia : Patient Instructions Indication: Hyperkalemia Cough : How to access health information online Indication: Cough Cough : How to access health information online - Detail Indication: Cough Cough : Patient Instructions Indication: Cough Diabetes mellitus type II, controlled : DISCONTINUED - Hemoglobin Glyclated (HGB A1C) (84038) Indication: Diabetes mellitus type II, controlled Osteopenia : DISCONTINUED - Vitamin D Hydroxy (55056) Indication: Osteopenia Essential hypertension with goal blood pressure less than 130/80 : DISCONTINUED - METABOLIC PANEL, COMPREHENSIVE (18211) Indication: Essential hypertension with goal blood pressure less than 130/80 Other chronic nonalcoholic liver disease : DISCONTINUED - RVXJP-MWDVUAPZRIN-OTYON (68620) Indication: 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 : DISCONTINUED - PTT (Activated Partial Thromboplastin Time) (97836) Indication: 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 : DISCONTINUED - PT (PROTHROMBIN TIME) (90566) Indication: Other chronic nonalcoholic liver disease Atrial fibrillation : DISCONTINUED - PT (PROTHROMBIN TIME) (98537) Indication: Atrial fibrillation Atrial fibrillation : DISCONTINUED - PT (PROTHROMBIN TIME) (89518) Indication: Atrial fibrillation Atrial fibrillation : DISCONTINUED - BLD CNT, COMPL CBC W/AUTO DIFF WBC (70672) Indication: Atrial fibrillation Anemia, unspecified : DISCONTINUED - CBC WITH MANUAL DIFF (77440) Indication: Anemia, unspecified Mild vitamin D deficiency : DISCONTINUED - Vitamin D Hydroxy (62151) Indication: Mild vitamin D deficiency Mild vitamin D deficiency : DISCONTINUED - Vitamin D Hydroxy (93250) Indication: Mild vitamin D deficiency Abnormal glucose tolerance test : DISCONTINUED - METABOLIC PANEL, COMPREHENSIVE (09074) Indication: Abnormal glucose tolerance test Abnormal glucose tolerance test : DISCONTINUED - METABOLIC PANEL, COMPREHENSIVE (08592) Indication: Abnormal glucose tolerance test Mixed dyslipidemia : DISCONTINUED - LIPID PANEL (12560) Indication: Mixed dyslipidemia Mixed dyslipidemia : DISCONTINUED - LIPID PANEL (50902) Indication: Mixed dyslipidemia Mixed dyslipidemia : DISCONTINUED - HEPATIC FUNCTION PANEL (50476) Indication: Mixed dyslipidemia Anemia, unspecified : DISCONTINUED - CBC WITH MANUAL DIFF (73959) Indication: Anemia, unspecified Diabetes mellitus type 2, uncontrolled, without complications : How to access health information online Indication: Diabetes mellitus type 2, uncontrolled, without complications Diabetes mellitus type 2, uncontrolled, without complications : How to access health information online - Detail Indication: Diabetes mellitus type 2, uncontrolled, without complications Diabetes mellitus type 2, uncontrolled, without complications : Patient Instructions Indication: Diabetes mellitus type 2, uncontrolled, without complications Diabetes mellitus type 2, uncontrolled, without complications : How to access health information online Indication: Diabetes mellitus type 2, uncontrolled, without complications Diabetes mellitus type 2, uncontrolled, without complications : How to access health information online - Detail Indication: Diabetes mellitus type 2, uncontrolled, without complications Diabetes mellitus type 2, uncontrolled, without complications : Patient Instructions Indication: Diabetes mellitus type 2, uncontrolled, without complications Diabetes mellitus type 2, uncontrolled, without complications : How to access health information online Indication: Diabetes mellitus type 2, uncontrolled, without complications Diabetes mellitus type 2, uncontrolled, without complications : How to access health information online - Detail Indication: Diabetes mellitus type 2, uncontrolled, without complications Diabetes mellitus type 2, uncontrolled, without complications : Patient Instructions Indication: Diabetes mellitus type 2, uncontrolled, without complications Diabetes mellitus type II, controlled : How to access health information online Indication: Diabetes mellitus type II, controlled Diabetes mellitus type II, controlled : How to access health information online - Detail Indication: Diabetes mellitus type II, controlled Diabetes mellitus type II, controlled : Patient Instructions Indication: Diabetes mellitus type II, controlled Diabetes mellitus type 2, uncontrolled, without complications : How to access health information online Indication: Diabetes mellitus type 2, uncontrolled, without complications Diabetes mellitus type 2, uncontrolled, without complications : How to access health information online - Detail Indication: Diabetes mellitus type 2, uncontrolled, without complications Diabetes mellitus type 2, uncontrolled, without complications : Patient Instructions Indication: Diabetes mellitus type 2, uncontrolled, without complications Diabetes mellitus type II, controlled : How to access health information online Indication: Diabetes mellitus type II, controlled Diabetes mellitus type II, controlled : How to access health information online - Detail Indication: Diabetes mellitus type II, controlled Diabetes mellitus type II, controlled : Patient Instructions Indication: Diabetes mellitus type II, controlled Chronic obstructive pulmonary disease (COPD) : Patient Instructions Indication: Chronic obstructive pulmonary disease (COPD) Diabetes mellitus type II, controlled : How to access health information online Indication: Diabetes mellitus type II, controlled Diabetes mellitus type II, controlled : How to access health information online - Detail Indication: Diabetes mellitus type II, controlled Diabetes mellitus type II, controlled : Patient Instructions Indication: Diabetes mellitus type II, controlled Mixed dyslipidemia : Patient Instructions Indication: Mixed dyslipidemia Diabetes mellitus type II, controlled : Patient Instructions Indication: Diabetes mellitus type II, controlled screening : How to access health information online Indication: screening screening : How to access health information online - Detail Indication: screening Diabetes mellitus type II, controlled : Patient Instructions Indication: Diabetes mellitus type II, controlled Mild vitamin D deficiency : How to access health information online Indication: Mild vitamin D deficiency Mild vitamin D deficiency : How to access health information online - Detail Indication: Mild vitamin D deficiency Diabetes mellitus type II, controlled : Patient Instructions Indication: Diabetes mellitus type II, controlled Diabetes mellitus type II, controlled : Patient Instructions Indication: Diabetes mellitus type II, controlled Hemoptysis : Patient Instructions Indication: Hemoptysis Diabetes mellitus type II, controlled : Patient Instructions Indication: Diabetes mellitus type II, controlled Atrial fibrillation : Patient Instructions Indication: Atrial fibrillation Essential hypertension with goal blood pressure less than 130/80 : Patient Instructions Indication: Essential hypertension with goal blood pressure less than 130/80 Diabetes mellitus type II, controlled : Patient Instructions Indication: Diabetes mellitus type II, controlled Diabetes mellitus type 2, uncontrolled, without complications : Patient Instructions Indication: Diabetes mellitus type 2, uncontrolled, without complications BMI 45.0-49.9, adult : obesity counseling Indication: BMI 45.0-49.9, adult Diabetes mellitus type 2, uncontrolled, without complications : Patient Instructions Indication: Diabetes mellitus type 2, uncontrolled, without complications Essential hypertension with goal blood pressure less than 130/80 : Patient Instructions Indication: Essential hypertension with goal blood pressure less than 130/80 Encounters Office Visit On: 10-Jun-2018 8:31 Encounter Reason: Follow up for chronic medical issues - The patient feels well with no complaints, has good energy level (improving) and is sleeping well. Patient has been compliant with instructions. Current medication End: 10-Jun-2018 9:36 use: no side effects, compliant with dosing regimen and considered effective by patient. Patient sleeps 7 (7-8) hours per night. Nutrition: balanced diet, supplemental vitamins and low salt diet. The m edical issues the patient is following up for include All identified problems below, blood sugar issues, high blood pressure (pulmonary), high cholesterol, osteoporosis/osteopenia and other (gout, obesi ty, lipoma, hyperkalemia). blood pressure range : (91-139/48-71) and weight : (04/18/18- 331.0 06/10/18- 315.0). Note for Follow up for chronic medical issues: Has great improvement and back to working a bit weekly, [ADDITIONAL REASON] Follow up tests - Diagnostic tests include other (labs). Encounter Diagnosis: Diabetes mellitus type 2, uncontrolled, without complications, Nonsmoker, BMI 50.0-59.9, adult, Essential hypertension with goal blood pressure less than 130/80, Restless leg syndrome, Lower GI bleed, Pulmonary hypertension (416.8), Valvular disease, Iron deficiency anemia, CKD (chronic kidney disease), stage III, Organic sleep apnea, Obesity, morbid, BMI 50 or higher, Anasarca [facility] Annotation/Addendum On: 02-Apr-2018 16:21 Encounter Diagnosis: Unspecified Diagnosis End: 02-Apr-2018 16:23 [facility] Office Visit On: 24-Mar-2018 9:27 Encounter Reason: Transition into care - The patient is transitioning into care from a hospital and a summary of care was reviewed (labs, CXR ??done -- med list included). Note for Transition into care: Again to [facility] End: 24-Mar-2018 10:05 n for GI Bleed 03-16-18 Dr. Graham..... Gi doce at [facility] , A pos. on 03-19 Bunm 19 creat 1.53 last hemoglobin on 03-19 discharge date 8.4. Got iron infusion at [facility] and to get on Sat. by Dr. Michelle She wi ll see Dr. Pacheco he is GI at [facility] Mar [address] Graham saw her this time., [ADDITIONAL REASON] Edema - Note for Edema: When taking lasix to take 2 lasix if gaining more than 2 lbs Last wt 8- 349.6. Encounter Diagnosis: BMI 50.0-59.9, adult, Nonsmoker, Essential hypertension with goal blood pressure less than 130/80, Lower GI bleed, CKD (chronic kidney disease), stage III [facility] Office Visit On: 06-Mar-2018 6:37 Encounter Reason: Follow up hospital - Reason for ER visit: note: (GI bleed). Note for Follow up hospital: Multiple courses of GI bleed from overanticoagulation and ulcers, etc finally had embolization on 02-23-2018 at A End: 06-Mar-2018 9:[address] Nelson Perez. Will see again in March. Plan is to stay off all nsaids, asa, coumadin, plavix, etc Dr. Thorne will monitor iron levels and anemia. Last hemoglobin 03-05 was 8.5. To be off oral iron. Volume status pt is keeping track and BP 120/58 Wts are 342.8 on February 28 and today 354.8 in office up 8- 11 lbs . Taking 40mg qod. Needs 40mg daily., [ADDITIONAL REASON] Transition into care - The patient is transitioning into care from a hospital. Note for Transition into care: On creat 1.57 K 4.1, Encounter Diagnosis: Mixed dyslipidemia, Lower GI bleed, Nonsmoker, BMI 50.0-59.9, adult, Anasarca, Atrial fibrillation (427.31), CKD (chronic kidney disease), stage III [facility] Office Visit On: 17-Feb-2018 8:08 Encounter Reason: Follow up hospital - Reason for ER visit: note: (anemia - acuteblood loss, lower GI bleed - on coumadin therapy)., [ADDITIONAL REASON] Transition into care - The patient is transitioning into care from a hospital (A End: 17-Feb-2018 9:21 Lester partida). Note for Transition into care: Sent to [place] for acute blood loss from coumadin, found ulcertations in the duodenum , no dieulofay lesions or AVM's procedue done by An Olmos. Got 2 units FFP and 8 units of blood, at [place] and 6 more at [facility]. INR was 3.7 and day before 2.1Pt will no longer be getting coumadinCreat on 02-05 BUN 83 and creat 2.66 Encounter Diagnosis: Lower GI bleed, Nonsmoker, Obesity, morbid, BMI 50 or higher, Atrial fibrillation (427.31), CKD (chronic kidney disease), stage III, Pulmonary hypertension (416.8), Hypoxia [facility] Phone Encounter On: 11-Feb-2018 15:41 Encounter Diagnosis: Lower GI bleed, Hypokalemia, gastrointestinal losses End: 11-Feb-2018 15:57 [facility] Annotation/Addendum On: 29-Jan-2018 16:53 Encounter Diagnosis: CKD (chronic kidney disease), stage III End: 29-Jan-2018 16:54 [facility] Office Visit On: 29-Jan-2018 8:59 Encounter Reason: Follow up hospital - Reason for ER visit: note: (edema-sob). The patient feels well with minor complaints, has decreased energy level and is sleeping well. Patient has been compliant with instructions. End: 29-Jan-2018 10:06 Patient sleeps 8 hours per night. Note for Follow up hospital: Was sent to hospital January 21 to January 27with anasarca and SOB. Lost 60 pounds with thoracentesis and IV lasix. Home on lasix 40mg bid for a week and potassim 40meq daily. BUt pt not sure dose of potassium to weigh self dailyEncounter Diagnosis: BMI 35.0-35.9,adult, Nonsmoker, Anasarca, Diabetes mellitus type 2, uncontrolled, without complications [facility] Office Visit On: 21-Jan-2018 10:16 Encounter Reason: Follow up for chronic medical issues - The patient feels well with minor complaints (SOB-sees Sibdurga), has good energy level and is sleeping well. Patient has been compliant with instructions. Current End: 21-Jan-2018 11:21 medication use: no side effects. Nutrition: balanced diet, supplemental vitamins and low salt diet. The medical issues the patient is following up for include All identified problems below, blood sugar issues, high blood pressure (pulmonary), high cholesterol, osteoporosis/osteopenia and other (gout, obesity, lipoma, hyperkalemia). Note for Follow up for chronic medical issues: Seeing new hematologi st Dr. Merchant Has had iron ??levels and iron infusions in Aug, in October will get blood work and reevaluate ??Asking if still needs to see therapy manager Dr. Jean-Baptisteting periodic infusions and iron supplements, [ADDITIONAL REASON] Edema - Note for Edema: On going edema, legs to thighs not improvingHas lymphopress but cannot get on legs Encounter Diagnosis: Diabetes mellitus type II, controlled, Shortness of breath, Nonsmoker, BMI 60.0-69.9, adult, Lower extremity edema [facility] Annotation/Addendum On: 15-Jan-2018 11:51 Encounter Diagnosis: Unspecified Diagnosis End: 15-Jan-2018 11:58 [facility] Office Visit On: 15-Jan-2018 8:51 Encounter Reason: Edema - Symptoms include edema. The edema involves both lower extremities. Onset was 1 month(s) ago (getting a lot worse within the past month). Associated symptoms include dyspnea and calf pain (more w End: 15-Jan-2018 10:03 ith movement and in joints). Note for Edema: Has increasing sob and leg edema. Presents in WC and greatly swollen legs, [ADDITIONAL REASON] Shortness of Breath - Symptoms include dyspnea. Onset was 1 month(s) ago. Note f or Shortness of breath: Worsening only taking 20mg lasix daily. Encounter Diagnosis: Lower extremity edema, Shortness of breath, BMI 50.0-59.9, adult, Nonsmoker, Anticoagulated [facility] Office Visit On: 06-Dec-2017 11:05 Encounter Reason: Transition into care - The patient is transitioning into care from a hospital and a summary of care was reviewed. Note for Transition into care: WEnt to ER with hemoglobin at 7, once there got blood t End: 06-Dec-2017 12:16 ransfusion and 2 more on Saturday, had scope upper and lower told had diverticuli but need to stay on coumadin because of afib. Vinnie did scope and found same as Faby., [ADDITIONAL REASON] Follow up hospital - Reason for ER visit: note: (anemia, Diverticulitis). The patient does not feel well (Tired). The hospital results of the other (scopes) were Encounter Diagnosis: Pulmonary hypertension (416.8), BMI 50.0-59.9, adult, Anemia, unspecified, Nonsmoker, Anticoagulated, Cough, Restless leg syndrome, CKD (chronic kidney disease), stage III [facility] Lab Order On: 20-Nov-2017 13:08 Encounter Diagnosis: Acute CHF End: 20-Nov-2017 13:19 [facility] Annotation/Addendum On: 20-Nov-2017 12:57 Encounter Diagnosis: Hyperkalemia (276.7), Atrial fibrillation (427.31) End: 20-Nov-2017 13:08 [facility] Annotation/Addendum On: 20-Sep-2017 11:26 Encounter Diagnosis: Unspecified Diagnosis End: 20-Sep-2017 11:28 [facility] Office Visit On: 20-Sep-2017 10:34 Encounter Reason: Follow up for chronic medical issues - The patient feels well with minor complaints (SOB-sees Leslie), has good energy level and is sleeping well. Patient has been compliant with instructions. Current End: 20-Sep-2017 11:26 medication use: no side effects. Nutrition: balanced diet, supplemental vitamins and low salt diet. The medical issues the patient is following up for include All identified problems below, blood sugar issues, high blood pressure (pulmonary), high cholesterol, osteoporosis/osteopenia and other (gout, obesity, lipoma, hyperkalemia). Note for Follow up for chronic medical issues: Seeing new hematologi st Dr. Merchant Has had iron ??levels and iron infusions in Aug, in October will get blood work and reevaluate Asking if still needs to see therapy manager Dr. Caruso periodic infusions and iron supplementsEncounter Diagnosis: Diabetes mellitus type II, controlled, Nonsmoker, Atrial fibrillation (427.31), Essential hypertension with goal blood pressure less than 130/80, BMI 50.0-59.9, adult, Pulmonary hypertension (416.8), Acute renal failure, Iron deficiency anemia [facility] Office Visit On: 08-Aug-2017 11:29 Encounter Reason: Follow up acute care visit - The patient improving. Patient has been compliant with instructions. The medical issues the patient is following up for include URI (pneumonia). Note for Follow up acute ca End: 08-Aug-2017 14:59 re visit: Following up from appointment 4 days ago-Still taking Levaquin. Feeling better, still SOB, wheezing and coughing up yellow/green. No fever.Encounter Diagnosis: Nonsmoker, BMI 50.0-59.9, adult, COPD with acute exacerbation (Renamed from Acute exacerbation of chronic obstructive airways disease), Abnormal lung sounds, SOB (shortness of breath), Cough [facility] Office Visit On: 06-Aug-2017 14:31 Encounter Reason: Cold Symptoms - Symptoms include nasal congestion, postnasal drainage, productive cough (yellow mucus) and facial pressure. Onset was day(s) ago. Associated symptoms include wheezing, shortness of breat End: 06-Aug-2017 15:48 h, fever and chills, while associated symptoms do not include ear pain, nausea, vomiting or diarrhea. Current treatment includes herbal / alternative therapies (stephanie pot). Note for Cold symptoms: Sy mptoms started 3 days ago with coughing, fever, chilled, nasal drainage-yellow, coughing up yellow dorsey sputum, SOB, wheezing, facial pressure, No body aches, headaches, no back pain, CP. Using Netti pot, and cough syrup.Encounter Diagnosis: Nonsmoker, Fever and chills, Body aches, Abnormal lung sounds, Cough, Walking pneumonia [facility] Phone Encounter On: 31-Jul-2017 15:25 [facility] End: 31-Jul-2017 15:30 Annotation/Addendum On: 26-Jul-2017 12:14 Encounter Diagnosis: Abnormal mammogram End: 26-Jul-2017 12:17 [facility] Office Visit On: 20-May-2017 7:44 Encounter Reason: Follow up for chronic medical issues - The patient feels well with minor complaints (SOB-sees Leslie), has good energy level and is sleeping well. Patient has been compliant with instructions. Current End: 20-May-2017 11:57 medication use: no side effects. Patient sleeps 7 (7-8) hours per night. Nutrition: balanced diet, supplemental vitamins and low salt diet. The medical issues the patient is following up for include All identified problems below, blood sugar issues, high blood pressure (pulmonary), high cholesterol, osteoporosis/osteopenia and other (gout, obesity, lipoma, hyperkalemia). Note for Follow up for chroni c medical issues: Seeing new plasterer helper Dr. eMrchant Has had iron levels and iron infusions . Asking if still needs to see therapy manager Dr. MccurdyGetting periodic infusions and iron supplements, [ADDITIONAL REASON] Kidney Disease, Chronic - Note for Chronic kidney disease: Sees Dr. Mccurdy current GFR 42, asking if has to see so many doctors so frequently Encounter Diagnosis: Need for prophylactic vaccination and inoculation against influenza (Renamed from Need for immunization against influenza), Diabetes mellitus type II, controlled, BMI 50.0-59.9, adult, Nonsmoker, Mixed dyslipidemia, Anemia, unspecified, Iron deficiency anemia, Atrial fibrillation (427.31), Lower GI bleed, Encounter for screening mammogram for breast cancer (Renamed from Encounter for screening mammogram for malignant neoplasm of breast) [facility] Lab Order On: 26-Apr-2017 12:54 Encounter Diagnosis: Atrial fibrillation (427.31) End: 26-Apr-2017 13:03 [facility] Phone Encounter On: 22-Mar-2017 11:15 Encounter Diagnosis: Hyperkalemia (276.7), Anemia, unspecified End: 22-Mar-2017 11:18 [facility] Phone Encounter On: 26-Feb-2017 15:19 Encounter Diagnosis: Anemia, unspecified End: 26-Feb-2017 15:46 [facility] Office Visit On: 11-Feb-2017 11:33 Encounter Reason: Follow up tests - Diagnostic tests include other (labs)., [ADDITIONAL REASON] Knee Pain - This condition occurred without any known injury. Symptoms are locat End: 11-Feb-2017 12:41 ed in the left knee. The symptoms occur constantly. The patient describes symptoms as unchanged. Note for Knee pain: recent UTI treatment of UTI Encounter Diagnosis: Lower GI bleed, BMI 50.0-59.9, adult, Nonsmoker, Acute renal failure, Knee pain, Atrial fibrillation (427.31), Diabetes mellitus type II, controlled [facility] Lab Order On: 30-Jan-2017 16:26 Encounter Diagnosis: Anemia, unspecified End: 30-Jan-2017 16:27 [facility] Lab Order On: 30-Jan-2017 15:43 Encounter Diagnosis: Lower GI bleed End: 30-Jan-2017 15:45 [facility] Office Visit On: 31-Dec-2016 11:51 Encounter Reason: Transition into care - The patient is transitioning into care from a hospital and a summary of care was reviewed ., [ADDITIONAL REASON] Follow up hospital - Reason for ER visit: note: (GI bleed). The patient feels we End: 31-Dec-2016 13:18 ll with minor complaints (bilateral foot swelling). Patient has been compliant with instructions. Current medication use: no side effects. Hospital procedures performed were blood transfusion. The hospital results of the other (colonoscopy) were , [ADDITIONAL REASON] Gastrointestinal Bleeding, Lower - Note for Gastrointestinal bleeding: In hospital 5-6 to 5-9 with GI bleed with explosive GI Bleed wten tot ER at [facility] with CBC with hemoglobin of 8.7 then to 7.9 given a unit of blood, See by Dr. Hobbs for lower GI bleed with colonoscopy found bleeding diverticuli . Dr. Anaya hospitalist . Was on coumadin but taken off Encounter Diagnosis: NH (myocardial infarction), Nonsmoker, Lower GI bleed, BMI 50.0-59.9, adult, Atrial fibrillation (427.31), Acute renal failure [facility] Office Visit On: 21-Dec-2016 14:20 Encounter Reason: Transition into care - The patient is transitioning into care from a hospital and a summary of care was reviewed ., [ADDITIONAL REASON] Follow up hospital - Reason for ER visit: heart attack and note: (UTI sepsis). T End: 21-Dec-2016 14:59 he patient is sleeping well and improving. Patient has been compliant with instructions. Current medication use: no side effects. The hospital results of the chest X- ray and Lab abnormal were Note for Follow up hospital: Was in ER on 12-09-16 with 3 days history of fever chilsls Had afib uncontrolled, had elevated WBC and chronic anemia of 8.6. and dehydrated. on coumadin, was given Rochephin and xpa ckHad an echocardiogram with LVH Mod tricuspid valv insufficiency. Awaiting clearing of urine. Has apt with Rigoberto to do heart cath on the January 02. Was taken off of coumadin only on baby asa. Was told i f with my approval to go back on the coumadin on the . lst antibiotic on cipro December 18.Had sepsis. Had blood in stool Scheduled with Dr. Hobbs. Sees Dr. Mccurdy on January 30 with BUN 52 creat 2.05 in hospi talRepeat labs on .-3 show creatinine at 1.21 which is improved. and Hemoglobin of 89.4 which is improved form 8.6 from 7.8. Encounter Diagnosis: BMI 50.0- 59.9, adult, Nonsmoker, Acute renal failure, Hyperkalemia (276.7), Sepsis, Anemia, unspecified, Iron deficiency anemia, NH (myocardial infarction) [facility] Office Visit On: 21-Dec-2016 8:59 Encounter Diagnosis: Abnormal blood finding End: 21-Dec-2016 9:01 [facility] Phone Encounter On: 20-Dec-2016 15:50 Encounter Diagnosis: Abnormal blood finding End: 20-Dec-2016 16:02 [facility] Phone Encounter On: 17-Dec-2016 12:28 Encounter Diagnosis: Abnormal blood finding End: 17-Dec-2016 13:19 [facility] Phone Encounter On: 19-Nov-2016 13:59 [facility] End: 19-Nov-2016 14:00 Office Visit On: 15-Nov-2016 10:25 Encounter Reason: Cough - No changes in management were made at the last visit. Symptoms include cough, wheezing, chills, fever (99 to 101), runny nose and stuffy nose, while symptoms do not include sore throat. The coug End: 15-Nov-2016 13:28 h is described as tight, wheezy and non-productive. Cough onset was sudden week(s) ago. There is no known event that preceded symptom onset. The cough occurs constantly. Symptoms are described as modera te in severity and worsening. Current treatment includes decongestants.Encounter Diagnosis: Cough (786.2), BMI 50.0-59.9, adult, Nonsmoker, Post-nasal drainage, Aortic stenosis, mild [facility] Annotation/Addendum On: 09-Nov-2016 11:55 Encounter Diagnosis: Diabetes mellitus type II, controlled End: 09-Nov-2016 11:59 [facility] Phone Encounter On: 05-Nov-2016 15:05 [facility] End: 05-Nov-2016 15:07 Office Visit On: 03-Oct-2016 10:02 Encounter Reason: Follow up for chronic medical issues - The patient feels well with minor complaints (SOB-sees Sibilia), has good energy level and is sleeping well. Patient has been compliant with instructions. Current End: 03-Oct-2016 11:22 medication use: no side effects. Patient sleeps 7 hours per night. Nutrition: balanced diet, supplemental vitamins and low salt diet. The medical issues the patient is following up for include All ident ified problems below, blood sugar issues, high blood pressure (pulmonary), high cholesterol, osteoporosis/osteopenia and other (gout, obesity, lipoma, hyperkalemia).Encounter Diagnosis: Mild vitamin D deficiency, Diabetes mellitus type 2, uncontrolled, without complications, Atrial fibrillation (427.31), Iron deficiency anemia, BMI 50.0-59.9, adult, Nonsmoker, Anemia, unspecified, Mixed dyslipidemia, Abnormal glucose tolerance test, Other chronic nonalcoholic liver disease (571.8), Essential hypertension with goal blood pressure less than 130/80, Osteopenia (733.90), Diabetes mellitus type II, controlled [facility] Phone Encounter On: 24-Aug-2016 15:35 [facility] End: 24-Aug-2016 15:36 Phone Encounter On: 22-Aug-2016 14:35 Encounter Diagnosis: Atrial fibrillation (427.31) End: 22-Aug-2016 14:39 [facility] Phone Encounter On: 14-Aug-2016 16:22 [facility] End: 14-Aug-2016 16:23 Phone Encounter On: 30-Jul-2016 13:31 [facility] End: 30-Jul-2016 13:32 Office Visit On: 26-Jun-2016 8:17 Encounter Reason: Follow up for chronic medical issues - The patient feels well with no complaints, has good energy level and is sleeping well. Patient has been compliant with instructions. Current medication use: no eugenia End: 26-Jun-2016 16:46 e effects. Patient sleeps 7 hours per night. Nutrition: balanced diet, supplemental vitamins and low salt diet. The medical issues the patient is following up for include All identified problems below, blood sugar issues, high blood pressure (pulmonary), high cholesterol, osteoporosis/osteopenia and other (gout, obesity, lipoma, hyperkalemia)., [ADDITIONAL REASON] Annual Medicare Exam - The patient had reviewed and updated the family history, medication/s, past medical history and social history. Yes the patient did have a mini mental status exam done today. The activities of daily living the patient needs help with are none. The patient has driven in past 6 months and fallen in the past 6 months, but the patient has not had fecal incontinence, had urinary incontinence, missed or ran out of medications to soon, gotten lost, has a medalert necklace or bracelet, put area rugs through house or put handrails in bathroom. The patient has completed the following preventative measures: PAP smear (long time), mammography (2014, dexa 2015) and co lonoscopy (2010). The patient does not have 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 of ip attorney or living will. The patient has noticed lack of energy. Other providers contributing to the patient's care are industrial economics professor (Dr. Raymundo), supervisor respiratory (Leslie) and other: (chiropractor- once monthly). 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), Chronic obstructive pulmonary disease (COPD), Atrial fibrillation (427.31), Coronary atherosclerosis of [place] coronary vessel, Essential hypertension with goal blood pressure less than 130/80, History of colon polyps, Mild vitamin D deficiency, Other chronic nonalcoholic liver disease (571.8), Anemia, unspecified, Iron deficiency anemia, Gout, Pulmonary hypertension (416.8), BMI 45.0-49.9, adult [facility] Phone Encounter On: 25-Jun-2016 12:17 [facility] End: 25-Jun-2016 12:19 Phone Encounter On: 04-Jun-2016 16:25 [facility] End: 04-Jun-2016 16:30 Phone Encounter On: 28-May-2016 16:08 [facility] End: 28-May-2016 16:10 Phone Encounter On: 21-May-2016 12:31 [facility] End: 21-May-2016 12:32 Annotation/Addendum On: 07-May-2016 17:12 [facility] End: 07-May-2016 17:13 Phone Encounter On: 30-Apr-2016 14:34 [facility] End: 30-Apr-2016 14:35 Phone Encounter On: 16-Apr-2016 12:21 [facility] End: 16-Apr-2016 12:23 Phone Encounter On: 09-Apr-2016 13:52 [facility] End: 09-Apr-2016 13:57 Phone Encounter On: 02-Apr-2016 14:07 [facility] End: 02-Apr-2016 14:10 Office Visit On: 27-Mar-2016 9:20 Encounter Reason: Follow up for chronic medical issues - The patient feels well with no complaints, has good energy level and is sleeping well. Patient has been compliant with instructions. Current medication use: no eugenia End: 27-Mar-2016 17:00 e effects. Patient sleeps 7 hours per night. Nutrition: balanced diet, supplemental vitamins and low salt diet. The medical issues the patient is following up for include All identified problems below, blood sugar issues, high blood pressure (pulmonary), high cholesterol, osteoporosis/osteopenia and other (gout, obesity, lipoma, hyperkalemia). Note for Follow up for chronic medical issues: feeling w ell in general - she had inr 2.2- today and feeling well no gout- seeing Leslie putting on symbicort no difference yet-sugars good and bpis goodEncounter Diagnosis: Diabetes mellitus type 2, uncontrolled, without complications, BMI 50.0-59.9, adult , Nonsmoker, Iron deficiency anemia, History of colon polyps, Gout, Anemia, unspecified, Other chronic nonalcoholic liver disease (571.8), Mild vitamin D deficiency, Essential hypertension with goal blood pressure less than 130/80, Diabetes mellitus type II, controlled, Coronary atherosclerosis of [place] coronary vessel, Atrial fibrillation (427.31), Renal insufficiency (Renamed from Renal function impairment), Chronic obstructive pulmonary disease (COPD), Osteopenia (733.90), DISORDERS, ORGANIC SLEEP APNEA, 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), Restless leg syndrome, Mixed dyslipidemia [facility] Phone Encounter On: 26-Mar-2016 16:21 [facility] End: 26-Mar-2016 16:22 Phone Encounter On: 19-Mar-2016 12:39 [facility] End: 19-Mar-2016 12:40 Phone Encounter On: 12-Mar-2016 13:12 [facility] End: 12-Mar-2016 13:13 Phone Encounter On: 05-Mar-2016 14:32 [facility] End: 05-Mar-2016 14:33 Phone Encounter On: 27-Feb-2016 17:27 [facility] End: 27-Feb-2016 17:28 Phone Encounter On: 13-Feb-2016 12:30 [facility] End: 13-Feb-2016 12:31 Phone Encounter On: 06-Feb-2016 12:40 [facility] End: 06-Feb-2016 12:41 Phone Encounter On: 23-Jan-2016 16:33 [facility] End: 23-Jan-2016 16:39 Phone Encounter On: 17-Jan-2016 16:05 [facility] End: 17-Jan-2016 16:07 Phone Encounter On: 09-Jan-2016 13:39 [facility] End: 09-Jan-2016 13:41 Phone Encounter On: 02-Jan-2016 11:58 [facility] End: 02-Jan-2016 11:59 Phone Encounter On: 26-Dec-2015 12:56 [facility] End: 26-Dec-2015 12:58 Office Visit On: 19-Dec-2015 10:07 Encounter Reason: Follow up for chronic medical issues - The patient feels well with no complaints, has good energy level and is sleeping well. Patient has been compliant with instructions. Current medication use: no eugenia End: 19-Dec-2015 11:18 e effects and compliant with dosing regimen. Patient sleeps 7 hours per night. Nutrition: balanced diet, supplemental vitamins and low salt diet. The medical issues the patient is following up for inclu de All identified problems below, blood sugar issues, high blood pressure (pulmonary), high cholesterol, osteoporosis/osteopenia and other (gout, obesity, lipoma, hyperkalemia). blood pressure range : ( hasnt been able to hear lately- so no recent readings). Note for Follow up for chronic medical issues: feeling well in general - she had inr 2.2- today and feeling well no gout- seeing Leslie putting on symbicort no difference yet-sugars good and bpis good, [ADDITIONAL REASON] Follow up, Laboratory Test Results - Date: (11/2015- in scanned documents). Encounter Diagnosis: Mixed dyslipidemia, Essential hypertension with goal blood pressure less than 130/80, Restless leg syndrome, Mild vitamin D deficiency, Diabetes mellitus type II, controlled, Gout, Other chronic nonalcoholic liver disease (571.8), Anemia, unspecified, History of colon polyps [facility] Phone Encounter On: 12-Dec-2015 12:11 [facility] End: 12-Dec-2015 12:12 Phone Encounter On: 05-Dec-2015 11:53 [facility] End: 05-Dec-2015 11:54 Phone Encounter On: 28-Nov-2015 11:02 [facility] End: 28-Nov-2015 11:03 Phone Encounter On: 21-Nov-2015 12:26 [facility] End: 21-Nov-2015 12:28 Phone Encounter On: 14-Nov-2015 13:20 [facility] End: 14-Nov-2015 13:21 Phone Encounter On: 07-Nov-2015 11:28 [facility] End: 07-Nov-2015 11:30 Phone Encounter On: 31-Oct-2015 17:27 [facility] End: 31-Oct-2015 17:28 Office Visit On: 24-Oct-2015 11:53 [facility] End: 24-Oct-2015 11:54 Phone Encounter On: 17-Oct-2015 10:15 [facility] End: 17-Oct-2015 10:16 Phone Encounter On: 10-Oct-2015 13:47 [facility] End: 10-Oct-2015 13:48 Phone Encounter On: 03-Oct-2015 13:03 [facility] End: 03-Oct-2015 13:04 Historical Summary On: 26-Sep-2015 14:07 [facility] End: 26-Sep-2015 17:29 Office Visit On: 19-Sep-2015 9:01 Encounter Reason: Follow up for chronic medical issues - The patient feels well with minor complaints (bp's been elevated- cardio advised her to bring monitor in and compare with our reading- wants df's opinion on advair End: 19-Sep-2015 21:55 discuss...), has good energy level and is sleeping well (some nights not as well). Patient has been compliant with instructions. Current medication use: no side effects and compliant with dosing regime n. Patient sleeps 7 hours per night. Nutrition: balanced diet, supplemental vitamins and low salt diet. The medical issues the patient is following up for include All identified problems below, blood horton gar issues, high blood pressure (pulmonary), high cholesterol, osteoporosis/osteopenia and other (gout, obesity, lipoma, hyperkalemia). blood pressure range : ( hasnt been able to hear lately- so no recent readings). Note for Follow up for chronic medical issues: Home INR was 1.9 this am- Current dose is 5mg daily- Ate spinach over weekend at [employer]-- sugar better -saw cardio and monitori ng blood pressure -- no gout -seeing sibilia he is adjusting her inhalers but we discussed risk with azucena, [ADDITIONAL REASON] Follow up, Laboratory Test Results - Date: (09/08/15- in scanned documents). Encounter Diagnosis: Diabetes mellitus type 2, uncontrolled, without complications, Mixed dyslipidemia, Gout, Atrial fibrillation (427.31), Essential hypertension, History of colon polyps [facility] Phone Encounter On: 12-Sep-2015 14:16 [facility] End: 12-Sep-2015 14:17 Phone Encounter On: 05-Sep-2015 12:59 [facility] End: 05-Sep-2015 13:00 Phone Encounter On: 29-Aug-2015 15:28 [facility] End: 29-Aug-2015 15:30 Phone Encounter On: 22-Aug-2015 13:50 [facility] End: 22-Aug-2015 13:51 Phone Encounter On: 15-Aug-2015 13:41 [facility] End: 15-Aug-2015 13:42 Phone Encounter On: 08-Aug-2015 15:39 [facility] End: 08-Aug-2015 15:40 Phone Encounter On: 01-Aug-2015 16:57 [facility] End: 01-Aug-2015 16:59 Phone Encounter On: 25-Jul-2015 15:39 [facility] End: 25-Jul-2015 15:40 Phone Encounter On: 18-Jul-2015 13:00 [facility] End: 18-Jul-2015 13:01 Phone Encounter On: 11-Jul-2015 16:35 [facility] End: 11-Jul-2015 16:36 Office Visit On: 05-Jul-2015 8:58 Encounter Diagnosis: Pneumococcal vaccination given End: 05-Jul-2015 9:18 [facility] Phone Encounter On: 04-Jul-2015 17:32 [facility] End: 04-Jul-2015 17:32 Phone Encounter On: 27-Jun-2015 14:36 [facility] End: 27-Jun-2015 14:36 Phone Encounter On: 20-Jun-2015 15:05 [facility] End: 20-Jun-2015 15:06 Office Visit On: 15-Jun-2015 9:07 Encounter Reason: Follow up for chronic medical issues - The patient feels well with minor complaints (troubles with sleeping), has good energy level and is sleeping poorly. Patient has been compliant with instructions. End: 16-Jun-2015 8:21 Current medication use: no side effects and compliant with dosing regimen. Patient sleeps 5 hours per night. Nutrition: balanced diet, supplemental vitamins and low salt diet. The medical issues the pat ient is following up for include All identified problems below, blood sugar issues, high blood pressure (pulmonary), high cholesterol, osteoporosis/osteopenia and other (gout, obesity, lipoma, hyperkale caitie). blood pressure range : (100's/50's to 110's/60's). Note for Follow up for chronic medical issues: had sleep study again - and no sleep apnea never did but shallow breathign before not now so sib durga took her off cpap and now cant sleep- he treating her for restless leg- so she going to address this with him- bp is good sugar up , [ADDITIONAL REASON] Follow up, Laboratory Test Results - Date: (06/09/15). Encounter Diagnosis: Diabetes mellitus type II, controlled, Need for prophylactic vaccination and inoculation against influenza (Renamed from Need for immunization against influenza), Chronic obstructive pulmonary disease (COPD), Other chronic nonalcoholic liver disease (571.8), Gout, Vertigo, Encounter for screening mammogram for breast cancer (Renamed from Encounter for screening mammogram for malignant neoplasm of breast), Mixed dyslipidemia, Anemia(285.9), Mild vitamin D deficiency [facility] Phone Encounter On: 13-Jun-2015 14:32 [facility] End: 13-Jun-2015 14:32 Phone Encounter On: 06-Jun-2015 16:12 [facility] End: 06-Jun-2015 16:13 Phone Encounter On: 30-May-2015 9:49 [facility] End: 30-May-2015 9:50 Phone Encounter On: 16-May-2015 13:07 [facility] End: 16-May-2015 13:08 Phone Encounter On: 10-May-2015 16:30 [facility] End: 10-May-2015 16:31 Phone Encounter On: 02-May-2015 11:57 [facility] End: 02-May-2015 11:57 Phone Encounter On: 26-Apr-2015 12:01 [facility] End: 26-Apr-2015 12:03 Phone Encounter On: 18-Apr-2015 13:45 [facility] End: 18-Apr-2015 13:46 Phone Encounter On: 11-Apr-2015 14:08 [facility] End: 11-Apr-2015 14:09 Phone Encounter On: 04-Apr-2015 15:51 [facility] End: 04-Apr-2015 15:52 Office Visit On: 30-Mar-2015 11:36 Encounter Reason: Follow up tests - Date: (03.24.2015 and 03.18.2015). 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 Patient has been compliant with instructions. Current medication use: no eugenia End: 20-Mar-2015 20:08 e effects and compliant with dosing regimen. Patient sleeps 7 hours per night. Nutrition: balanced diet, supplemental vitamins and low salt diet. The medical issues the patient is following up for inclu de All identified problems below, blood sugar issues, high blood pressure (pulmonary), high cholesterol, osteoporosis/osteopenia and other (gout, obesity, lipoma, hyperkalemia). blood pressure range : ( 100's/50's to 110's/60's). Note for Follow up for chronic medical issues: blood pressures at home was 110/60- her bp got changed from lasix to hctz , [ADDITIONAL REASON] Follow up, Laboratory Test Results - Date: (02/2015- in scanned doc). , [ADDITIONAL REASON] Annual Medicare Exam - The patient had reviewed and updated the family history, medication/s, past medical history and social history. Yes the patient did have a mini mental status exam done today. The activities of daily living the patient needs help with are none. The patient has driven in past 6 months, fallen in the past 6 months and put area rugs through house, but the patien t has not had fecal incontinence, had urinary incontinence, missed or ran out of medications to soon, gotten lost, has a medalert necklace or bracelet or put handrails in bathroom. The patient has compl eted the following preventative measures: PAP smear (long time), mammography (yearly- 07/2014) and colonoscopy (2009). The patient does not have 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 of ip attorney or living will. The patient has noticed lack of energy. Other providers contributing to the patient's care are industrial economics professor (Dr. Raymundo) and other: (chiropractor- once monthly). Note for Annual Medicare Exam: [address] Luna Holliday= hasnt noticed any breast lumps Encounter Diagnosis: Diabetes type II,controlled no comp (250.00), Hypertension (401.0), Annual Medicare Physical (V70.0), Pulmonary hypertension (416.8), Other chronic nonalcoholic liver disease (571.8), Gout, unspecified (274.9), Hyperlipidemia, Mixed (272.2) [facility] Phone Encounter On: 14-Mar-2015 11:57 [facility] End: 14-Mar-2015 11:59 Phone Encounter On: 07-Mar-2015 13:00 [facility] End: 07-Mar-2015 13:01 Office Visit On: 28-Feb-2015 12:54 [facility] End: 28-Feb-2015 12:56 Phone Encounter On: 21-Feb-2015 12:48 [facility] End: 21-Feb-2015 12:51 Phone Encounter On: 14-Feb-2015 14:23 [facility] End: 14-Feb-2015 14:25 Phone Encounter On: 31-Jan-2015 13:23 [facility] End: 31-Jan-2015 13:27 Office Visit On: 24-Jan-2015 14:33 [facility] End: 24-Jan-2015 14:38 Phone Encounter On: 17-Jan-2015 15:24 [facility] End: 17-Jan-2015 15:26 Phone Encounter On: 11-Jan-2015 9:11 [facility] End: 12-Jan-2015 9:35 Phone Encounter On: 04-Jan-2015 15:58 [facility] End: 04-Jan-2015 16:00 Phone Encounter On: 27-Dec-2014 15:40 [facility] End: 27-Dec-2014 15:42 Phone Encounter On: 20-Dec-2014 14:23 [facility] End: 20-Dec-2014 14:25 Phone Encounter On: 20-Dec-2014 10:47 [facility] End: 20-Dec-2014 10:50 Phone Encounter On: 14-Dec-2014 9:32 [facility] End: 14-Dec-2014 9:33 Office Visit On: 10-Dec-2014 9:02 Encounter Reason: Follow up for chronic medical issues - The patient feels well with no complaints, has good energy level and is sleeping well. Patient has been compliant with instructions. Current medication use: no eugenia End: 10-Dec-2014 9:30 e effects and compliant with dosing regimen. Patient sleeps 7 hours per night. Nutrition: balanced diet, supplemental vitamins and low salt diet. The medical issues the patient is following up for inclu de All identified problems below, blood sugar issues, high blood pressure (pulmonary), high cholesterol, osteoporosis/osteopenia and other (gout, obesity, lipoma, hyperkalemia). blood pressure range : ( 100's/50's to 110's/60's). Note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 Order On: 20-Jul-2011 11:13 Encounter Diagnosis: Atrial fibrillation (427.31) End: 20-Jul-2011 11:14 [facility] Phone Encounter On: 10-Jul-2011 8:18 Encounter Diagnosis: Unspecified Diagnosis, Gout, unspecified (274.9) End: 10-Jul-2011 8:20 [facility] Phone Encounter On: 29-Jun-2011 11:59 [facility] End: 21-Aug-2011 11:28 Phone Encounter On: 21-Jun-2011 14:26 [facility] End: 21-Jun-2011 14:29 Office Visit On: 20-Jun-2011 8:28 Encounter Reason: Forms - The patient presents to the office to be evaluate for other: (needs forms completed for medicare to cover her cpap.) (see scanned in form filled out). 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 Patient has been compliant with instructi End: 05-Jun-2011 11:39 ons. Current medication use: no side effects and compliant with dosing regimen. Patient sleeps 7 hours per night. Nutrition: balanced diet, supplemental vitamins and low salt diet. The medical issues th e patient is following up for include All identified problems below, blood sugar issues, high blood pressure (pulmonary), high cholesterol, osteoporosis/osteopenia and other (gout, obesity, lipoma, hype rkalemia). blood pressure range : (100's/50's to 110's/60's). Note for Follow up for chronic medical issues: stillhaving issues with gout in toes- alternates feet - pred did make it better but coming back- she has had good bps at home mostly 120s systolic- she hasnt been exercising with gout and so trigs up - she has list of foods high in gout- so is trying to watch that and drink more water- eating cherries- hemoglobin down - no blood in stool and not giving blood- no change in amando- no dark stool, [ADDITIONAL REASON] Follow up, Laboratory Test Results - Date: (05/28/11). Encounter Diagnosis: Abnormal Glucose Tolerance Test (790.29), Need for prophylactic vaccination and inoculation against influenza (V04.81), Hyperlipidemia, Mixed (272.2), Gout, unspecified (274.9), Anemia(285.9), VITAMIN D DEFICIENCY, NOS (268.9), Other chronic nonalcoholic liver disease (571.8), Hypertension (401.0), Atrial fibrillation (427.31) [facility] Annotation/Addendum On: 01-May-2011 14:29 Encounter Diagnosis: Unspecified Diagnosis End: 01-May-2011 14:36 [facility] Office Visit On: 01-May-2011 9:57 Encounter Reason: Gout - Symptoms include pain and swelling, while symptoms do not include erythema or warmth. Symptoms are located in the left midfoot. There is no radiation. The patient describes the pain as aching. On End: 01-May-2011 10:30 set was sudden 3 week(s) ago. The symptoms occur constantly. Patient describes symptoms as worsening. Associated symptoms include decreased weight bearing.Encounter Diagnosis: Gout, unspecified (274.9) [facility] Annotation/Addendum On: 30-Apr-2011 13:25 Encounter Diagnosis: Gout, unspecified (274.9) End: 30-Apr-2011 13:46 [facility] Phone Encounter On: 26-Apr-2011 13:28 [facility] End: 26-Apr-2011 13:29 Phone Encounter On: 25-Apr-2011 17:18 Encounter Diagnosis: Gout, unspecified (274.9) End: 25-Apr-2011 17:19 [facility] Phone Encounter On: 25-Apr-2011 17:15 Encounter Diagnosis: Gout, unspecified (274.9) End: 25-Apr-2011 17:17 [facility] Phone Encounter On: 19-Apr-2011 12:00 Encounter Diagnosis: Atrial fibrillation (427.31) End: 19-Apr-2011 12:03 [facility] Erroneous Entry On: 10-Apr-2011 11:27 Encounter Diagnosis: Atrial fibrillation (427.31) End: 10-Apr-2011 11:28 [facility] Historical Summary On: 21-Mar-2011 16:35 Encounter Diagnosis: Unspecified Diagnosis End: 21-Mar-2011 16:37 [facility] Phone Encounter On: 02-Mar-2011 14:15 Encounter Diagnosis: VITAMIN D DEFICIENCY, NOS (268.9), Hyperlipidemia, Mixed (272.2) End: 02-Mar-2011 14:29 [facility] Office Visit On: 14-Feb-2011 9:57 Encounter Reason: Follow up for chronic medical issues - The patient feels well with no complaints, has good energy level and is sleeping well. Patient has been compliant with instructions. Current medication use: no eugenia End: 14-Feb-2011 10:36 e effects and compliant with dosing regimen. Patient sleeps 7 hours per night. Nutrition: balanced diet, supplemental vitamins and low salt diet. The medical issues the patient is following up for inclu de All identified problems below, blood sugar issues, high blood pressure (pulmonary), high cholesterol, osteoporosis/osteopenia and other (gout, obesity, lipoma, hyperkalemia). blood pressure range : ( 100's/50's to 110's/60's). Note for Follow up for chronic medical issues: didnt get colonsocopy wasnt set up yet - she is feelingwell ohterwise- weight up 9 pounds- bp is good, [ADDITIONAL REASON] Follow up, Laboratory Test Results - Date: (01/30/11 and 02/05/11- in scanned documents). Encounter Diagnosis: Abnormal Glucose Tolerance Test (790.29), Hyperlipidemia, Mixed (272.2), Hypertension (401.0), Hyperkalemia (276.7), Other chronic nonalcoholic liver disease (571.8), Osteopenia (733.90), VITAMIN D DEFICIENCY, NOS (268.9), Colon Polyps, History of (V12.72) [facility] Phone Encounter On: 09-Feb-2011 9:29 Encounter Diagnosis: Atrial fibrillation (427.31) End: 09-Feb-2011 9:30 [facility] Phone Encounter On: 05-Feb-2011 15:59 Encounter Diagnosis: Atrial fibrillation (427.31) End: 05-Feb-2011 15:59 [facility] Phone Encounter On: 29-Jan-2011 16:26 [facility] End: 29-Jan-2011 16:27 Office Visit On: 30-Nov-2010 15:07 Encounter Reason: Injections - The medication the patient is here to receive is shingles vaccine IM.Encounter Diagnosis: SHINGLES,NEED FOR PROPHYLACTIC VACCINATION AND INOCULATION AGAINST (V05.8) End: 30-Nov-2010 15:12 [facility] Erroneous Entry On: 01-Nov-2010 10:33 Encounter Diagnosis: Atrial fibrillation (427.31) End: 01-Nov-2010 10:34 [facility] Office Visit On: 01-Nov-2010 8:30 Encounter Reason: Follow up for chronic medical issues - The patient feels well with no complaints, has good energy level and is sleeping well. Patient has been compliant with instructions. Current medication use: no eugenia End: 01-Nov-2010 9:22 e effects and compliant with dosing regimen. Patient sleeps 7 hours per night. Nutrition: balanced diet, supplemental vitamins and low salt diet. The medical issues the patient is following up for inclu de All identified problems below, blood sugar issues, high blood pressure (pulmonary), high cholesterol, osteoporosis/osteopenia and other (gout, obesity, lipoma, hyperkalemia). blood pressure range : ( 100's/50's to 110's/60's). Note for Follow up for chronic medical issues: she is feeling well - not exercising like supposed to so really encouraged because on max dose of niacin and cant afford nias velásquez- - no gout issues and liver good - blood sugar ok - no issues with breathing and notmuch palpitiations, [ADDITIONAL REASON] Follow up, Laboratory Test Results - Date: (10/27/10- in scanned documents). Encounter Diagnosis: Abnormal Glucose Tolerance Test (790.29), Hyperlipidemia, Mixed (272.2), Pulmonary hypertension (416.8), Atrial fibrillation (427.31), Other chronic nonalcoholic liver disease (571.8), VITAMIN D DEFICIENCY, NOS (268.9), Osteopenia (733.90), Colon Polyps, History of (V12.72) [facility] Phone Encounter On: 27-Oct-2010 11:09 [facility] End: 27-Oct-2010 11:10 Annotation/Addendum On: 21-Sep-2010 12:09 Encounter Diagnosis: Unspecified Diagnosis End: 21-Sep-2010 12:11 [facility] Office Visit On: 26-Jul-2010 10:19 Encounter Reason: Follow up for chronic medical issues - The patient feels well with no complaints, has good energy level and is sleeping well. Patient has been compliant with instructions. Current medication use: no eugenia End: 26-Jul-2010 11:12 e effects and compliant with dosing regimen. Patient sleeps 7 hours per night. Nutrition: balanced diet, supplemental vitamins and low salt diet. The medical issues the patient is following up for inclu de All identified problems below, blood sugar issues, high blood pressure (pulmonary), high cholesterol, osteoporosis/osteopenia and other (gout, obesity, lipoma, hyperkalemia). blood pressure range : ( 100's/50's to 110's/60's). Note for Follow up for chronic medical issues: feeling well and bps good at home- no issue with the higher dose of glucophage- - her sugar is better- no gout- she is doing 1 0 min a day on treadmill- she will try to increase the amount of that, [ADDITIONAL REASON] Follow up, Laboratory Test Results - Date: (07/21/10 and 07/24/10- in scanned documents). Encounter Diagnosis: Abnormal Glucose Tolerance Test (790.29), Pulmonary hypertension (416.8), VITAMIN D DEFICIENCY, NOS (268.9), Gout, unspecified (274.9), Other chronic nonalcoholic liver disease (571.8), Hyperlipidemia, Mixed (272.2), Osteopenia (733.90) [facility] Phone Encounter On: 25-May-2010 15:49 [facility] End: 25-May-2010 16:23 Office Visit On: 23-May-2010 19:01 Encounter Reason: Injections - The medication the patient is here to receive is other (flu vaccine). Encounter Diagnosis: Need for prophylactic vaccination and inoculation against influenza (V04.81) End: 24-May-2010 8:35 [facility] Historical Summary On: 19-May-2010 15:57 [facility] End: 19-May-2010 15:59 Phone Encounter On: 18-May-2010 8:55 Encounter Diagnosis: Atrial fibrillation (427.31) End: 18-May-2010 8:56 [facility] Office Visit On: 09-May-2010 10:23 Encounter Reason: Follow up for chronic medical issues - The patient feels well with no complaints ,has good energy level and is sleeping well. Patient has been compliant with instructions. Current medication use: no eugenia End: 09-May-2010 21:54 e effects and compliant with dosing regimen. Patient sleeps 7 hours per night. Nutrition: balanced diet ,supplemental vitamins and low salt diet. The medical issues the patient is following up for inclu de All identified problems below ,blood sugar issues ,high blood pressure (pulmonary) ,high cholesterol ,osteoporosis/osteopenia and other (gout, obesity, lipoma, hyperkalemia). blood pressure range : ( 100's/50's to 110's/60's). Note for Follow up for chronic medical issues: feeling well- hasnt been as compliant with diet and exercise- hot over summer- swelling pretty good- still gout couple times a year mild, [ADDITIONAL REASON] Follow up, Laboratory Test Results - Date: (05/02/10). Encounter Diagnosis: Abnormal Glucose Tolerance Test (790.29), Hyperlipidemia, Mixed (272.2), Pulmonary hypertension (416.8), Gout, unspecified (274.9), Other chronic nonalcoholic liver disease (571.8), screening, Osteopenia (733.90), Ankle/Foot Pain (719.47), Hypercalcemia(275.42) [facility] Historical Summary On: 03-May-2010 18:17 [facility] End: 03-May-2010 18:18 Historical Summary On: 31-Mar-2010 12:04 [facility] End: 31-Mar-2010 12:07 Historical Summary On: 07-Mar-2010 17:28 [facility] End: 07-Mar-2010 17:29 Office Visit On: 03-Feb-2010 11:16 Encounter Reason: Follow up for chronic medical issues - The patient feels well with no complaints ,has good energy level and is sleeping well. Patient has been compliant with instructions. Current medication use: no eugenia End: 03-Feb-2010 11:58 e effects and compliant with dosing regimen. Patient sleeps 7 hours per night. Nutrition: balanced diet ,supplemental vitamins and low salt diet. The medical issues the patient is following up for inclu de All identified problems below ,blood sugar issues ,high blood pressure (pulmonary) ,high cholesterol ,osteoporosis/osteopenia and other (gout, obesity, lipoma, hyperkalemia). blood pressure range : ( 100's/50's to 110's/60's). Note for Follow up for chronic medical issues: bps have been good - foot pain gone but uric acid level was up- so will need followup, [ADDITIONAL REASON] Follow up, Laboratory Test Results - Date: (02/01/10- in scanned documents). Encounter Diagnosis: Abnormal Glucose Tolerance Test (790.29), Gout, unspecified (274.9), VITAMIN D DEFICIENCY, NOS (268.9), Hyperlipidemia, Mixed (272.2), Other chronic nonalcoholic liver disease (571.8) [facility] Annotation/Addendum On: 30-Jan-2010 18:56 [facility] End: 30-Jan-2010 18:57 Office Visit On: 03-Jan-2010 13:09 Encounter Reason: Follow up acute care visit - The patient feeling better since last seen and improving. Patient has been compliant with instructions. Current medication use: experiencing side effects (constipation) ,com End: 03-Jan-2010 13:36 pliant with dosing regimen and not considered effective by patient. Patient sleeps 7 hours per night. Nutrition: balanced diet. The medical issues the patient is following up for include All identified problems below and other (plantar spurr). Encounter Diagnosis: Ankle/Foot Pain (719.47) [facility] Phone Encounter On: 28-Dec-2009 11:51 [facility] End: 28-Dec-2009 11:53 Office Visit On: 27-Dec-2009 15:45 Encounter Diagnosis: Unspecified Diagnosis End: 27-Dec-2009 15:50 [facility] Office Visit On: 27-Dec-2009 8:36 Encounter Reason: Foot problems - The onset of the foot problems has been sudden and they have been occurring in a persistent pattern for 3 days. The course has been increasing. The foot problems are described as severe. Encounter Diagnosis: End: 27-Dec-2009 9:33 FIBROMATOSIS, PLANTAR FASCIAL (728.71), Ankle/Foot Pain (719.47), Lower extremity edema (782.3), Swelling of ankle and foot joint (719.07), Atrial fibrillation (427.31) [facility] Annotation/Addendum On: 13-Dec-2009 17:15 [facility] End: 13-Dec-2009 17:18 Phone Encounter On: 24-Nov-2009 15:11 [facility] End: 24-Nov-2009 15:13 Office Visit On: 01-Nov-2009 15:16 Encounter Reason: Follow up for chronic medical issues - The patient feels well with no complaints ,has good energy level and is sleeping well. Patient has been compliant with instructions. Current medication use: no eugenia End: 01-Nov-2009 15:47 e effects and compliant with dosing regimen. Patient sleeps 7 hours per night. Nutrition: balanced diet ,supplemental vitamins and low salt diet. The medical issues the patient is following up for inclu de All identified problems below ,blood sugar issues ,high blood pressure (pulmonary) ,high cholesterol ,osteoporosis/osteopenia and other (gout, obesity, lipoma, hyperkalemia). blood pressure range : ( 100's/50's to 110's/60's). Note for Follow up for chronic medical issues: her bps hve been great at home, [ADDITIONAL REASON] Follow up, Laboratory Test Results - Date: (10/25/09). Encounter Diagnosis: Abnormal Glucose Tolerance Test (790.29), Osteopenia (733.90), Hypertension (401.0), Atrial fibrillation (427.31), Hyperlipidemia, Mixed (272.2), Hypercalcemia(275.42), VITAMIN D DEFICIENCY, NOS (268.9) [facility] Historical Summary On: 26-Oct-2009 16:59 [facility] End: 26-Oct-2009 17:00 Phone Encounter On: 28-Sep-2009 11:58 [facility] End: 28-Sep-2009 12:02 Historical Summary On: 06-Sep-2009 17:28 [facility] End: 06-Sep-2009 17:31 Phone Encounter On: 17-Aug-2009 17:22 [facility] End: 17-Aug-2009 17:25 Historical Summary On: 17-Aug-2009 16:49 [facility] End: 17-Aug-2009 16:50 Phone Encounter On: 04-Aug-2009 16:00 [facility] End: 04-Aug-2009 16:01 Office Visit On: 04-Aug-2009 15:39 [facility] End: 04-Aug-2009 15:47 Historical Summary On: 12-Jul-2009 16:55 [facility] End: 12-Jul-2009 16:57 Office Visit On: 11-Jul-2009 10:52 Encounter Reason: Follow up for chronic medical issues - The patient feels well with no complaints ,has good energy level and is sleeping well. Patient has been compliant with instructions. Current medication use: no eugenia End: 11-Jul-2009 11:41 e effects and compliant with dosing regimen. Patient sleeps 7 hours per night. Nutrition: balanced diet ,supplemental vitamins and low salt diet. The medical issues the patient is following up for inclu de All identified problems below ,blood sugar issues ,high blood pressure (pulmonary) ,high cholesterol ,osteoporosis/osteopenia and other (gout, obesity, lipoma, hyperkalemia). Note for Follow up for chronic medical issues: she had a bad cold for 4-5 weeks thinks that is why sugar was up-- but feeling well now- and weight is continuing to go down- and she is trying -- and her bp is good and got mammo done, [ADDITIONAL REASON] Follow up, Laboratory Test Results - Date: (07/06/09- in scanned documents). Encounter Diagnosis: Abnormal Glucose Tolerance Test (790.29), Atrial fibrillation (427.31), Hypertension (401.0), Osteopenia (733.90), Hypercalcemia(275.42), Hyperlipidemia, Mixed (272.2), Migraine (346.80), Hyperkalemia (276.7) [facility] Phone Encounter On: 24-Jun-2009 14:25 Encounter Diagnosis: Well Woman Exam , Medicare (V76.2) End: 24-Jun-2009 14:28 [facility] Phone Encounter On: 22-Jun-2009 17:04 [facility] End: 22-Jun-2009 17:05 Office Visit On: 09-Jun-2009 9:05 Encounter Reason: Cough - The onset of the cough has been sudden and 1 weeks. The cough is characterized as productive of mucoid sputum. The amount of sputum produced is scanty. The cough occurs all the time. The symptom End: 09-Jun-2009 11:13 s are aggravated by supine posture and particular position, but not by meals. The symptoms have been associated with headache ,hoarseness ,runny nose and wheezing, while the symptoms have not been assoc iated with fever or sore throat. the color of the sputum is yellowish. Encounter Diagnosis: Cough (786.2), Cerumen impaction (380.4) [facility] Nurse Visit On: 19-May-2009 15:27 Encounter Reason: Injections - The medication the patient is here to receive is other (Influenza vaccine). Encounter Diagnosis: Need for prophylactic vaccination and inoculation against influenza (V04.81) End: 19-May-2009 15:29 [facility] Historical Summary On: 12-May-2009 14:00 [facility] End: 12-May-2009 14:05 Phone Encounter On: 05-May-2009 15:54 [facility] End: 05-May-2009 15:55 Phone Encounter On: 21-Apr-2009 14:40 [facility] End: 21-Apr-2009 14:41 Office Visit On: 08-Apr-2009 11:43 Encounter Reason: Follow up for chronic medical issues - The patient feels well with no complaints ,has good energy level and is sleeping well. Patient has been compliant with instructions. Current medication use: no eugenia End: 10-Apr-2009 10:41 e effects and compliant with dosing regimen. Patient sleeps 7 hours per night. Nutrition: balanced diet ,supplemental vitamins and low salt diet. The medical issues the patient is following up for inclu de All identified problems below ,blood sugar issues ,cardiac issues (a-fib) ,high blood pressure ,high cholesterol ,osteoporosis/osteopenia and other (gout). Note for Follow up for chronic medical iss ues: her bp is great and still doing shoulder exercises and doing well fromthat and her weight up a few pounds- she is feeling good- retaining little fluid with the heat which is usual for her- tiny go ut flare in finger now ok- she had young - becuase there was concern her valve wors ebut was actually ok- good-- her sugars are good, [ADDITIONAL REASON] Follow up, Laboratory Test Results - Date: (03/24/09 and 04/01/09- in scanned documents). Encounter Diagnosis: Abnormal Glucose Tolerance Test (790.29), Hypertension (401.0), Atrial fibrillation (427.31), Osteopenia (733.90), Hyperkalemia (276.7), Pulmonary hypertension (416.8), Gout, unspecified (274.9), Hyperlipidemia, Mixed (272.2) [facility] Phone Encounter On: 24-Mar-2009 16:49 [facility] End: 24-Mar-2009 16:50 Office Visit On: 23-Feb-2009 11:33 Encounter Diagnosis: Atrial fibrillation (427.31), Pulmonary hypertension (416.8), Shoulder pain (719.41) End: 24-Feb-2009 21:29 [facility] Nurse Visit On: 28-Jan-2009 10:54 Encounter Diagnosis: Atrial fibrillation (427.31) End: 28-Jan-2009 11:05 [facility] Historical Summary On: 28-Jan-2009 7:38 [facility] End: 28-Jan-2009 7:43 Office Visit On: 07-Jan-2009 10:39 Encounter Reason: Follow up for chronic medical issues - The patient feels well with no complaints ,has good energy level and is sleeping well. Patient has been compliant with instructions. Current medication use: no eugenia End: 10-Jan-2009 20:58 e effects and compliant with dosing regimen. Patient sleeps 7 hours per night. Nutrition: balanced diet ,supplemental vitamins and low salt diet. The medical issues the patient is following up for inclu de All identified problems below ,blood sugar issues ,cardiac issues (a-fib) ,high blood pressure ,high cholesterol ,osteoporosis/osteopenia and other (gout, non- alcoholic liver dz). Note for Follow up for chronic medical issues: wt down 40 pounds in one year and she is trying- bp looks good, [ADDITIONAL REASON] Follow up, Laboratory Test Results - Date: (12/30/08- in scanned documents). Encounter Diagnosis: Abnormal Glucose Tolerance Test (790.29), Hypertension (401.0), Atrial fibrillation (427.31), Hyperlipidemia, Mixed (272.2), Shoulder pain (719.41), pulmonary hypertension- continue to tx sleep apnea and followup on echo, Gout, unspecified (274.9), Alcoholic fatty liver (571.0) [facility] Phone Encounter On: 03-Jan-2009 14:19 [facility] End: 03-Jan-2009 14:22 Phone Encounter On: 31-Dec-2008 9:12 [facility] End: 31-Dec-2008 9:13 Nurse Visit On: 14-Dec-2008 8:26 Encounter Diagnosis: Atrial fibrillation (427.31) End: 14-Dec-2008 8:32 [facility] Office Visit On: 08-Dec-2008 14:06 Encounter Reason: Coumadin visit - 7 days ago. Current medicaion use: compliant with dosing regimen. Encounter Diagnosis: Atrial fibrillation (427.31) End: 08-Dec-2008 14:24 [facility] Nurse Visit On: 30-Nov-2008 9:55 Encounter Diagnosis: Atrial fibrillation (427.31) End: 30-Nov-2008 10:44 [facility] Office Visit On: 18-Nov-2008 15:36 Encounter Reason: Coumadin visit - Denies following symptoms: bruising or prolonged bleeding. Date: (11/08/08). Current medicaion use: compliant with dosing regimen. Encounter Diagnosis: Atrial fibrillation (427.31) End: 18-Nov-2008 15:57 [facility] Phone Encounter On: 15-Nov-2008 18:12 [facility] End: 15-Nov-2008 18:13 Phone Encounter On: 15-Nov-2008 13:56 [facility] End: 15-Nov-2008 13:57 Phone Encounter On: 08-Nov-2008 18:25 [facility] End: 08-Nov-2008 18:27 Office Visit On: 29-Oct-2008 13:55 Encounter Reason: Coumadin visit - Denies following symptoms: blood in urine ,bruising ,nausea ,prolonged bleeding or spontaneous bleeding. Date: (10-22-08). Current medicaion use: compliant with dosing regimen and experiencing no side effects. End: 31-Oct-2008 20:23 Encounter Diagnosis: Atrial fibrillation (427.31) [facility] Nurse Visit On: 22-Oct-2008 7:50 Encounter Diagnosis: Atrial fibrillation (427.31) End: 22-Oct-2008 8:06 [facility] Office Visit On: 11-Oct-2008 13:59 Encounter Reason: Coumadin visit - Denies following symptoms: blood in urine ,bruising ,nausea ,prolonged bleeding or spontaneous bleeding. Date: (10-04-08). Current medicaion use: compliant with dosing regimen and experiencing no side effects. End: 11-Oct-2008 14:21 Encounter Diagnosis: Atrial fibrillation (427.31) [facility] Office Visit On: 04-Oct-2008 10:34 Encounter Reason: Follow up for chronic medical issues - The patient feels well with no complaints ,has good energy level and is sleeping well. Patient has been compliant with instructions. Current medication use: no eugenia End: 04-Oct-2008 22:31 e effects and compliant with dosing regimen. Patient sleeps 7 hours per night. Nutrition: inappropriate diet ,supplemental vitamins and low salt diet. The medical issues the patient is following up for include All identified problems below ,blood sugar issues ,cardiac issues (a-fib) ,high blood pressure (pulmonary) ,high cholesterol ,osteoporosis/osteopenia and other (morbid obesity, gout,). blood pre ssure range : (120's/70's). Note for Follow up for chronic medical issues: wt down 20 pounds --- she has cut out most of flour and sugar and her bp is better- she doesnt feel she needs more meds for g out it is better- she saw Dr Vaughan and all was good and did an ekg, [ADDITIONAL REASON] Follow up, Laboratory Test Results - Date: (09/28/08). Encounter Diagnosis: Abnormal Glucose Tolerance Test (790.29), Hypertension (401.0), Atrial fibrillation (427.31), Alcoholic fatty liver (571.0), Hyperlipidemia, Mixed (272.2), Osteopenia (733.90), Gout, unspecified (274.9) [facility] Nurse Visit On: 30-Aug-2008 8:28 Encounter Diagnosis: Atrial fibrillation (427.31) End: 30-Aug-2008 9:07 [facility] Office Visit On: 02-Aug-2008 10:16 Encounter Reason: Coumadin visit - Denies following symptoms: bruising or prolonged bleeding. 4 weeks ago. Current medicaion use: compliant with dosing regimen. Encounter Diagnosis: Atrial fibrillation (427.31), End: 02-Aug-2008 10:44 Prophylactic vaccination against Streptococcus pneumoniae (V03.82) [facility] Office Visit On: 06-Jul-2008 9:55 Encounter Reason: Follow up for chronic medical issues - The patient feels well with minor complaints (foot pain) ,has good energy level and is sleeping well. Patient has been compliant with instructions. Current medicat End: 06-Jul-2008 10:47 ion use: no side effects and compliant with dosing regimen. Patient sleeps 7 hours per night. Nutrition: inappropriate diet ,supplemental vitamins and low salt diet. The medical issues the patient is fo llowing up for include All identified problems below ,blood sugar issues ,cardiac issues (a-fib) ,high blood pressure ,high cholesterol ,osteoporosis/osteopenia and other (obesity). blood pressure range : (120's/60's) and fasting blood sugars : (120's). , [ADDITIONAL REASON] Foot Pain - The onset of the foot pain has been sudden following no specific inc ident and has been occurring in a persistent pattern for 3 days. The course has been increasing. The foot pain is severe. The foot pain is characterized as a sharp with weight-bearing. The foot pain is described as being located in the entire foot. The foot pain is aggravated by any movement. The pain has not been relieved by anything. The symptoms have been associated with muscle swelling ,swelling , pain in ankle ,painful ROM ,decreased ROM ,difficulty with shoe wear and difficulty going up and down stairs, while the symptoms have not been associated with muscle stiffness ,muscle weakness ,pain in calf ,warmth ,burning sensation ,fever or chills. Note for Foot Pain: she woke up sun am- had alot of pain in right ist metatarsal-- and has gotten worsesince- painful in bed at night , [ADDITIONAL REASON] Follow up, Laboratory Test Results - Date: (06/24/08- in scanned documents). Encounter Diagnosis: Atrial fibrillation (427.31), Abnormal Glucose Tolerance Test (790.29), Osteopenia (733.90), Hypertension (401.0), Gout, unspecified (274.9), Alcoholic fatty liver (571.0), Hyperlipidemia, Mixed (272.2) [facility] Nurse Visit On: 16-Jun-2008 15:29 Encounter Diagnosis: Atrial fibrillation (427.31) End: 16-Jun-2008 16:48 [facility] Historical Summary On: 20-May-2008 16:36 [facility] End: 20-May-2008 16:38 Historical Summary On: 07-May-2008 15:32 [facility] End: 07-May-2008 15:33 Office Visit On: 28-Apr-2008 13:32 Encounter Reason: Follow up, Diagnostic Procedure Results - Diagnostic tests include other (bone dexa). Date: (04/14/08). Encounter Diagnosis: Atrial fibrillation (427.31), Osteopenia (733.90), Hypertension (401.0) End: 28-Apr-2008 14:34 [facility] Office Visit On: 22-Apr-2008 13:58 Encounter Diagnosis: Atrial fibrillation (427.31) End: 22-Apr-2008 14:28 [facility] Office Visit On: 06-Apr-2008 9:50 Encounter Reason: Follow up for chronic medical issues - The patient feels well with no complaints ,has good energy level and is sleeping well. Patient has been compliant with instructions. Current medication use: no eugenia End: 06-Apr-2008 10:37 e effects and compliant with dosing regimen. The medical issues the patient is following up for include All identified problems below ,blood sugar issues ,cardiac issues (a-fib) ,high blood pressure ,hi gh cholesterol ,osteoporosis/osteopenia and other (obesity). blood pressure range : (100's/60's to 120's/70's). Note for Follow up for chronic medical issues: her bps are good at home-- really look go od- she is loosing wt and encouraged to continue to work onit- no urinary sx, [ADDITIONAL REASON] Follow up, Laboratory Test Results - Date: (04/01/08). Encounter Diagnosis: Abnormal Glucose Tolerance Test (790.29), Atrial fibrillation (427.31), Osteopenia (733.90), Hyperlipidemia, Mixed (272.2), Hypertension (401.0) [facility] Phone Encounter On: 23-Mar-2008 14:30 [facility] End: 23-Mar-2008 14:31 Historical Summary On: 15-Mar-2008 19:08 [facility] End: 15-Mar-2008 19:09 Phone Encounter On: 11-Feb-2008 8:25 [facility] End: 11-Feb-2008 8:27 Phone Encounter On: 09-Feb-2008 12:44 [facility] End: 09-Feb-2008 12:46 Office Visit On: 14-Jan-2008 13:12 Encounter Reason: Follow up for chronic medical issues - The patient feels well with minor complaints (lump) ,has good energy level and is sleeping well. Patient has been compliant with instructions. Current medication u End: 18-Jan-2008 22:39 se: no side effects and compliant with dosing regimen. Nutrition: inappropriate diet ,supplemental vitamins and low salt diet. The medical issues the patient is following up for include All identified p roblems below ,blood sugar issues ,cardiac issues (a-fib) ,high blood pressure ,high cholesterol ,osteoporosis/osteopenia and other (obesity, migraine, cad). blood pressure range : (110's/60's to 120's/ 60's). Note for Follow up for chronic medical issues: wt down 5 pounds-- she is trying to watch the diet- no martinez or fast heart beats, [ADDITIONAL REASON] Follow up, Laboratory Test Results - Date: (01/06/08). , [ADDITIONAL REASON] Lumps - The onset of the lumps has been gradual and has been occurring in a persistent pattern for 2 years. The course has been increasing. The lumps are described as moderate. Note for Lumps: left side under rib cage Encounter Diagnosis: Abnormal Glucose Tolerance Test (790.29), Hypertension (401.0), Atrial fibrillation (427.31), Hyperlipidemia, Mixed (272.2), Osteopenia (733.90), fatty lipoma, Shoulder pain (719.41) [facility] Historical Summary On: 29-Dec-2007 10:45 [facility] End: 29-Dec-2007 10:47 Phone Encounter On: 15-Dec-2007 11:56 [facility] End: 15-Dec-2007 11:58 Historical Summary On: 17-Nov-2007 14:22 [facility] End: 17-Nov-2007 14:23 Phone Encounter On: 10-Nov-2007 10:38 [facility] End: 10-Nov-2007 10:39 Phone Encounter On: 10-Nov-2007 10:36 [facility] End: 10-Nov-2007 10:38 Office Visit On: 13-Oct-2007 14:56 Encounter Reason: Follow up for chronic medical issues - The patient feels well with no complaints ,has good energy level and is sleeping well. Patient has been compliant with instructions. Current medication use: no eugenia End: 13-Oct-2007 15:49 e effects and compliant with dosing regimen. The medical issues the patient is following up for include All identified problems below ,blood sugar issues ,high blood pressure ,high cholesterol and osteo porosis/osteopenia. 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 Patient has been compliant with instructions. Current medication u End: 18-Jul-2007 13:31 se: no side effects. Patient sleeps 4 hours per night. Impact of disease: no overall impact. Nutrition: balanced diet. The medical issues the patient is following up for include All identified problems below ,blood sugar issues ,cardiac issues ,high blood pressure ,high cholesterol ,osteoporosis/osteopenia and other (a-fib, CAD). Note for Follow up for chronic medical issues: her bps are great at ho me 110/120//70- feeling well - had her yearly eye exam and it was goodEncounter Diagnosis: Abnormal Glucose Tolerance Test (790.29), Atrial fibrillation (427.31), Hyperlipidemia, Mixed (272.2), Hypertension (401.0), Coronary atherosclerosis of [place] coronary vessel (414.01), Osteopenia (733.90) [facility] Historical Summary On: 08-Jul-2007 13:30 [facility] End: 08-Jul-2007 13:32 Historical Summary On: 18-Jun-2007 14:09 [facility] End: 18-Jun-2007 14:13 Nurse Visit On: 13-Jun-2007 7:57 Encounter Diagnosis: Need for prophylactic vaccination and inoculation against influenza (V04.81) End: 13-Jun-2007 7:59 [facility] Historical Summary On: 11-Jun-2007 17:19 [facility] End: 11-Jun-2007 17:20 Phone Encounter On: 14-May-2007 17:00 [facility] End: 14-May-2007 17:01 Office Visit On: 05-May-2007 14:13 Encounter Diagnosis: DISORDERS, ORGANIC SLEEP APNEA, 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 Patient has been compliant with instructions. Current medication use: no eugenia End: 18-Apr-2007 13:50 e effects and compliant with dosing regimen. Patient sleeps 7 hours per night. Nutrition: balanced diet ,supplemental vitamins and low salt diet. The medical issues the patient is following up for inclu de high blood pressure ,high cholesterol ,osteoporosis/osteopenia and other (artial fib). blood pressure range :. Note for Follow up for chronic medical issues: bps at home 110-120 /66- 70, blood sugars tend to bein normal range, [ADDITIONAL REASON] Follow up, Laboratory Test Results - Date: (04.03.07). 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), pulmonary hypertension- continue to tx sleep apnea and followup on echo [facility] Phone Encounter On: 03-Apr-2007 14:11 [facility] End: 03-Apr-2007 14:55 Phone Encounter On: 13-Mar-2007 8:46 [facility] End: 13-Mar-2007 8:47 Historical Summary On: 12-Feb-2007 17:52 [facility] End: 12-Feb-2007 17:54 Phone Encounter On: 30-Jan-2007 16:00 [facility] End: 30-Jan-2007 16:01 Office Visit On: 16-Jan-2007 13:13 Encounter Reason: Follow up for chronic medical issues - The patient feels well with no complaints ,has good energy level and is sleeping well. Patient has been compliant with instructions. Current medication use: no eugenia End: 16-Jan-2007 14:00 e effects and compliant with dosing regimen. Nutrition: balanced diet ,supplemental vitamins and low salt diet. The medical issues the patient is following up for include All identified problems below , blood sugar issues ,high blood pressure ,high cholesterol and other (CAD). blood pressure range :. Note for Follow up for chronic medical issues: doing well and overall feeling well- no change in idaz witt that she gets in the summer and her bps at home have been good-- 100-120- she is now on vytorin - and had labs with [facility] and blood chol was 105, tri 114, hdl 29 and ldl 53Encounter Diagnosis: Abnormal Glucose Tolerance Test (790.29), Atrial fibrillation (427.31), Hypertension (401.0), Hyperlipidemia, Mixed (272.2) [facility] Historical Summary On: 07-Jan-2007 18:53 [facility] End: 07-Jan-2007 18:55 Historical Summary On: 31-Dec-2006 17:34 [facility] End: 31-Dec-2006 17:37 Historical Summary On: 16-Dec-2006 18:53 [facility] End: 16-Dec-2006 18:56 Phone Encounter On: 06-Dec-2006 14:48 [facility] End: 06-Dec-2006 14:51 Phone Encounter On: 28-Oct-2006 14:59 [facility] End: 28-Oct-2006 15:00 Phone Encounter On: 09-Oct-2006 15:29 [facility] End: 09-Oct-2006 15:32 Phone Encounter On: 07-Oct-2006 16:25 [facility] End: 07-Oct-2006 16:27 Historical Summary On: 09-Sep-2006 17:52 [facility] End: 09-Sep-2006 17:55 Office Visit On: 07-Aug-2006 13:38 Encounter Reason: Follow up hospital - Reason for ER visit: note: (Pt. was at [facility] for Heart cath. 07-30-2006). The patient feels well with minor complaints ,has good energy level and is sleeping well. Patient End: 07-Aug-2006 15:12 has been compliant with instructions. Current medication use: compliant with dosing regimen. Patient sleeps 6 hours per night. Nutrition: balanced diet. Hospital procedures performed were heart catheriz ation. Note for Follow up hospital: did have heart cath - and did have some small blockages no more than 30 % - he put her on asa- caution of increased risk of bleeding- since we did the decrease in l anoxin he did another holter and it looked better so he didnt change any medsEncounter Diagnosis: Abnormal Glucose Tolerance Test (790.29), Atrial fibrillation (427.31), Hyperlipidemia, Mixed (272.2), Coronary atherosclerosis of [place] coronary vessel (414.01) [facility] Historical Summary On: 12-Jun-2006 15:45 [facility] End: 12-Jun-2006 16:01 Historical Summary On: 15-May-2006 15:39 [facility] End: 15-May-2006 15:40 Historical Summary On: 15-May-2006 15:36 [facility] End: 15-May-2006 15:38 Historical Summary On: 15-May-2006 15:34 [facility] End: 15-May-2006 15:36 Office Visit On: 14-May-2006 15:15 Encounter Reason: Follow up for chronic medical issues - The patient feels well with no complaints ,has good energy level and is sleeping well. Patient has been compliant with instructions. Current medication use: no eugenia End: 14-May-2006 17:55 e effects. Patient sleeps 7 hours per night. Nutrition: balanced diet ,supplemental vitamins and low salt diet. The medical issues the patient is following up for include blood sugar issues ,high blood pressure ,high cholesterol ,osteoporosis/osteopenia and other (a-fib). blood pressure range : ,fasting blood sugars : and postprandial sugars :. Note for Follow up for chronic medical issues: blood horton gars 89-105, blood pressures running 116- 132/70s, [ADDITIONAL REASON] Follow up, Laboratory Test Results - Date: (05/04/06-flp,liver). , [ADDITIONAL REASON] Follow up tests - Diagnostic tests include other (bone density). Date: (02/14/06). 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
--- OUTSIDE RECORDS SUMMARY | 2018-11-06 12:01 | XMS RPT_ITS | Continuity of Care Document ---
:1945 Author Organization [facility] Address [facility] [address] Phone Care Team Providers Name Role Phone Sara Swartz CNP Unavailable Jarad Brittany RUIZ Gordo Unavailable Natalia Mccurdy Unavailable Mackenzie Blanton Unavailable Unavailable Long RECEIVING MANAGER, Mona Kemp Unavailable Unavailable Jayda Frias Unavailable Unavailable Alana Mathis Unavailable Unavailable Vishal Bradford Unavailable Unavailable Slarb RECEIVING MANAGER, Alana Unavailable Unavailable Unavailable Unavailable Problems Name [...] creat 1.75 Status: Active Coronary atherosclerosis of [place] coronary vessel (I25.10, 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 Viral Status: Active Deliveries (Parity) Comments: 1 Status: Active Diabetes mellitus type 2, uncontrolled, without complications (E11.65, 250.02) Comments: HBA1c 6.0(07/04)HBA1c 6.1( Was 6.0 10/04).A1c 5.5 with prn trajentatakes tradjenta 4- 5 X /month when going for a alliance party and eating sweetsFBS: once in a [...] diet and exercise.Patient has 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 of process project engineer and living will.( and daughter) Status: Active [...] Hypoxia (R09.02, 799.02) Comments: prescribed oxygen by [facility] at discharge, will ask her to repeat [...] GI bleed (K92.2, 578.9) Comments: Admitted to [facility] with hemoglobin, 5.2 got 7 units of blood, was 8.7 on February 10, 2018,8.5 on Holly 18, 2018Admitted to [facility] 03-19-18 with GI bleed last hemoglobin 03-19 is 8.4 Status: Active Lymphedema (I89.0, 457.1) [facility] Status: Active AL (myocardial infarction) (I21.9, 410.90) Comments: per elevated [...] 278.01) Comments: 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 [employer] [facility] [employer] [facility] D[facility] work Status: 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, [...] atreium Left atrium enlargement, Rigoberto sending to [facility] main campus for eval Status: Active Medications [...] Refills: 0 Ordered:20-May-2017 Tiffanihamiltongordo HENRY Sara Raymond NATIONAL SALES ASSOCIATE, Sara Mc Start : 20-May-2017 Active Furosemide 40 MG Oral Tablet 1 (one) Tablet daily for 0 days Quantity: 90 {Tablet} Refills: 3 Ordered:06-Mar-2018 Tia NATIONAL SALES ASSOCIATE, Sara Raymond NATIONAL SALES ASSOCIATE, Sara Mc Start : 06-Mar-2018 Active HydrALAZINE HCl 25 MG Oral Tablet 1 Tablet bid for 90 days Quantity: 180 {Tablet} Refills: 3 Ordered:10-Jun-2018 Tia CARL Sara Raymond NATIONAL SALES ASSOCIATE, Sara Mc Start : 10-Jun-2018 Active LANCETS (Miscellaneous) 1 (one) Misc daily for 0 days Quantity: 100 {Misc} Refills: 3 Ordered:31-Oct-2012 Ariane Hartman Start : 28-Jul-2012 Active Comments:Reli-On Lancets Magnesium Oxide 400 (240 Mg) MG Oral Tablet 1 (one) Tablet qd for 0 days Quantity: 60 {Tablet} Refills: 4 Ordered:31-Dec-2016 Tia CARL Sara Raymond NATIONAL SALES ASSOCIATE, Sara Mc Start : 31-Dec-2016 Active Metoprolol Tartrate 100 MG Oral Tablet 1 (one) Tablet bid for 90 days Quantity: 180 {Tablet} Refills: 3 Ordered:16-Apr-2018 Tia CARL Sara Raymond NATIONAL SALES ASSOCIATE, Sara Mc Start : 16-Apr-2018 Active Multivitamins [...] Allergy 32 MCG/ACT Nasal Suspension 2 (two) [place] In each nostril Daily for 1 days [...] Quantity: 30 {Tablet} Refills: 0 Ordered:31-Aug-2011 Ariane Hartman Start : 27-Dec-2009 End : 31-Aug-2011 Inactive [...] Quantity: 30 {Tablet} Refills: 0 Ordered:01-May-2011 Tia NATIONAL SALES ASSOCIATE, Sara Raymond NATIONAL SALES ASSOCIATE, Sara Mc Start : 01-May-2011 End : 01-May-2011 Discontinued CO-Q 10 Superior-3 Fish Oil Oral Capsule 1 (one) Capsule [...] 20-May-2017 End : 10-Jun-2018 Discontinued VITAMIN D, [id number] (Oral Capsule) 1 (one) Capsule q week for 0 days Quantity: 12 {Capsule} Refills: 0 Ordered:03-Feb-2010 Ariane Hartman Start : 03-Feb-2010 End : 31-Aug-2011 Discontinued Comments:This order discontinued per [facility]. VYTORIN, 10-20MG (Oral Tablet) 1 Tablet [...] Comments: secondary to sepsis, dehyrdation, and ? AL now improving was 2.05 now 1.21 going [...] Visit Report Result: Comments: See Note; NOTES: [facility] [place] [address] OFFICE VISIT Date of Service: 05/27/18 1342 MR#: [id number] Acct: [id number] Name: GABBI ROLLE Rep #: [id number] : 1945 From: Halley Khan MD Age/Sex: [...] GI bleed and was urgently transferred to [facility] where she underwent a nuclear medicine [...] GI blood loss Despite oral iron supplementation (retirement), . Patient was transfused with packed red [...] Q4H PRN PRN 01/03/18 [Combivent Respimat Inhal [place]] Furosemide [Lasix] 40 mg PO BID 01/15/18 Primary Care Provider: Sara Swartz Refer [facility] Provider: Halley Khan MD 05/27/18 1411 <Electronically signed by Halley Khan MD> Date Halley Khan MD Cosigner Signature: Date (if applicable) CC: 26-May-2018 Cardiology Visit Report Result: Comments: See Note; NOTES: [facility] [address] [place] [address] OFFICE VISIT Date of Service: 05/26/18 MR#: [id number] Acct: [id number] Name: GABBI ROLLE Rep #: [id number] : 1945 Provider: Niraj Raymundo MD Age/Sex: 73/F Location: [facility] Status: Signed HPI HPI Chief Complaint: [...] syncopal episodes. She continues to see the materials handler for follow-up of her blood work. She [...] Confirmed 05/26/18] Ipratropium/Albuterol Sulfate [Combivent Respimat Inhal [place]] 2 puff IH Q4H PRN PRN 01/03/18 [...] PFSH Medical History Atherosclerotic heart disease of [place] coro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 pectoris (Chronic) Chronic [...] watchman device as well 6. Atherosclerosis of [place] coronary artery of [place] heart without angina pectoris I25.10 [facility]: 6; 04/10/17 Plan She has minimal atherosclerotic [...] N18.3 Plan She does have evidence of program clerk karrie kidney disease as noted above with [...] possible. 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 transplanted heart: [place] heart CKD (chronic kidney disease), stage III N18.3 Anemia, unspecified type D64.9 Anemia type: unspecified type Coding Level of C are Code Off vis,est,level 5 Diagnoses Nonrheumatic aortic (valve) stenosis I35.0 Nonrheumatic mitral (valve) insufficiency I34.0 Other secondary pulmonary hypertension I27.29 Essential hypertension I1 0 Hypertension type: essential hypertension Chronic atrial fibrillation I48.2 Atherosclerosis of [place] coronary artery of [place] heart without angina pectoris I25.10 [place] vs. transplanted heart: [place] ve heart CKD (chronic kidney disease), stage III N18.3 Anemia, unspecified type D64.9 Anemia type: unspecified type 05/26/18 1541 <Electronically signed by Niraj Raymundo MD> Date Niraj Raymundo MD Cosigner Signature: Date (if applicable) CC: Sara Swartz DANIELE 23-May-2018 Echo Transesophageal (YOUNG) Result: Comments: See Note; NOTES: [facility] Cardiovascular Services [address] [place] [address] Echo Transesophageal (YOUNG) 05/23/18 0924 MR#: [id number] Acct: [id number] Name: GABBI GATES Rep #: [id number] : 1945 73 From: Niraj Raymundo MD Attending Dr: Niraj Raymundo MD Status: REG CLI Ordering Dr: Niraj Raymundo MD Date: 05/23/18 Location: [facility] Sex: F C Admitted: Reason For Study: Aortic Stenosis Medication YOUNG probe passed with minimal difficulty. No complications were noted. Topex Topical [place] given X4 metered doses orally. Versed 2 [...] Performed By: Yanna Hankins RDCS 05/23/181511 Date Niraj Raymundo MD CC: Sara caro OPAL MINER; Niraj Raymundo MD Date Dictated: 05/23/18 0924 Date Transcribed: 05/23/181511 Labor Relations Worker: Signed 16-May-2018 12 Lead EKG performed by ABHAY Result: Comments: See Note; NOTES: [facility] [address] [place] [address] 12 Lead EKG performed by ABHAY 05/16/18 0957 MR#: [id number] Acct: [id number] Name: GABBI RODAS Rep #: [id number] : 1945 72 From: Niraj Raymundo MD Attending Dr: Niraj Raymundo MD Status: DEP AMB Ordering Dr: Niraj Raymundo MD Date: 05/16/18 Location: [facility] Sex: F C Admitted: ORDER # : [id number] BMS/12 Lead EKG performed by [facility] Possible atrial fibrillation Low voltage -possible pulmonary disease. ABNORMAL 05/19/18 0730 <Electronically signed by Niraj Raymundo MD> John e Niraj Raymundo MD CC: Sara Swartz NP Date Dictated: 05/16/18956 Date Transcribed: 05/16/18956 Labor Relations Worker: [place] Signed 03-May-2018 Echocardiogram Complete Result: Comments: See Note; NOTES: [facility] Cardiovascular Services [address] [place] [address] Echo Complete 05/02/18 1405 MR#: [id number] Acct: [id number] Name: GABBI ROLLE Rep #: [id number] : 1945 72 From: Niraj Raymundo MD [...] ____ Niraj Raymundo MD CC: Sara Swartz OPAL MINER; Niraj Raymundo MD Date Dictated: 05/02/18 1405 Date Transcribed: 05/03/18 1436 Labor Relations Worker: Signed 29-Apr-2018 Oncology Visit Report Result: Comments: See Note; NOTES: [facility] [address] [place] [address] OFFICE VISIT Date of Service: 04/29/18 1417 MR#: [id number] Acct: [id number] Name: GABBI ROLLE Rep #: [id number] : 1945 From: Halley Khan MD Age/Sex: [...] GI bleed and was urgently transferred to [facility] where she underwent a nuclear medicine [...] GI blood loss Despite oral iron supplementation (retirement), . Patient was transfused with packed red [...] Q4H PRN PRN 01/03/18 [Combivent Respimat Inhal [place]] Furosemide [Lasix] 40 mg PO BID 01/15/18 Primary Care Provider: Sara Swartz Referring Provider: Halley Khan MD [id number] <Electronically signed by Halley Khan MD> Date Halley Khan MD Cosigner Signature: Date (if applicable) CC: 29-Apr-2018 Cardiology Visit Report Result: Comments: See Note; NOTES: [facility] [address] [place] [address] OFFICE VISIT Date of Service: 04/29/18 MR#: [id number] Acct: [id number] Name: GABBI ROLLE Rep #: [id number] : 1945 Provider: Niraj Raymundo MD Age/Sex: 72/F Location: [facility] Status: Signed [facility] Chief Complaint: Follow up Details: GABBI ROLLE, [...] syncopal episodes. She continues to see the materials handler for follow-up of her blood work. Her [...] Confirmed 04/29/18] Ipratropium/Albuterol Sulfate [Combivent Respimat Inhal [place]] 2 puff IH Q 4H PRN PRN [...] PO PRN PRN 04/29/18 [History Confirmed 04/29/18] [facility] Medical History Atherosclerotic heart disease of [place] zita 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 pectoris (Chronic) [...] vessel or lesion type , unspecified whether [place] or transplanted heart I25.10 Plan She does [...] above. Plan Detail Follow Up 4 Months ([facility]) Coding Level of Care Code Off vis,est,level 5 Diagnoses Chronic atrial fibrillation I48.2 Essential hypertension I10 Hypertension type: essential hypertension Coronary artery disease, angina p resence unspecified, unspecified vessel or lesion type, unspecified whether [place] or transplanted heart I25.10 Coronary Disease-Associated Artery/Lesion type: unspecified vessel or lesion type [place] v s. transplanted heart: unspecified whether [place] or transplanted heart Associated angina: angina presence [...] unspecified vessel or lesion type, unspecified whether [place] or transplanted heart I25.10 Coronary Disease-Associated Artery/Lesion type: unspecified vessel or lesion type [place] vs. transplanted heart: unspecified whether [place] or transplanted heart Associated angina: angina presence [...] Visit Report Result: Comments: See Note; NOTES: [facility] [address] [facility] 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 Patient was transfused with packed red [...] Q4H PRN PRN 01/03/18 [Combivent Respimat Inhal [place]] Furosemide [Lasix] 40 mg PO BID 01/15/18 Primary Care Provider: Sara Swartz Referring Provider: Halley olivares MD 04/02/18 1419 <Electronically signed by Halley Khan MD> Date Halley Khan MD Cosigner Signature: Date __ (if applicable) CC: 05-Mar-2018 Oncology Visit Report Result: Comments: See Note; NOTES: [facility] [address] [place] [address] OFFICE VISIT Date of Service: 03/05/18 1431 MR#: [id number] Acct: [id number] Name: GABBI ROLLE Rep #: [id number] : 1945 From: Halley Khan MD Age/Sex: [...] GI bleed and was urgently transferred to [facility] where she underwent a [facility] medicine GI blood loss imaging followed by [...] Dr. Hobbs, ) despite oral iron supplementation (oil heaterman) . Patien t was transfused with packed [...] sa Referring Provider: Halley Khan MD 03/05/18 2300 <Electronically signed by Halley Khan MD> Date Halley yee Signature: Date (if applicable) CC: 27-Feb-2018 12 Lead Electrocardiogram Result: Comments: See Note; NOTES: [facility] Cardiovascular Services [address] [place] [address] 12 Lead EKG 02/23/18 1015 MR#: [id number] Acct: [id number] Name: GABBI ROLLE Rani p #: [id number] : 1945 72 From: Saleem Zavala MD [...] Abnormal ECG Confirmed by SALEEM ZAVALA MD ([id number]), continuity editor JOSE GUADALUPE ROLLEETTE ([id number]) on 02/27/2018 1:03:39 PM Referred By: Sara Swartz Confirmed By:SALEEM ZAVALA MD 02/27/18 1303 Date __ Saleem Zavala MD CC: Sara Swartz NP; Nelson Soria MD Signed 23-Feb-2018 Emergency Department Summary Result: Comments: See Note; NOTES: [facility] Medical Records Department [address] [place] [address] Emergency Department Summary 02/23/18 1009 MR#: [id number] Acct: [id number] Name: GABBI ROLLE Rep #: [id number] : 1945 72 From: Nelson Soria MD [...] recently hospitalized about 3 weeks ago at [facility] for GI bleed. She was seen here initially, and was found to be significantly anemic with a supra therapeutic INR. She was started on a Protonix drip. S he underwent a bleeding scan which showed 2 areas of bleeding from the duodenum and the ascending colon. Given her multiple comorbidities, she was transferred to the ICU at [facility]. While there, patient was transfused. She was [...] based on her recent hospitalization at [facility] and multiple comorbidities, it was thought that she would best be served back at a tertiary facility. Patient was started on a Protonix drip given history of duodenal ulcer and bleeding. The patie nt was discussed with Dr. Rowe at [facility] who excepted the patient transfer. She will be transferred to the intensive care unit. Treatment Plan: [] Disposition: Transfer Impression: 1. GI bleed 2. Symptomatic anemia This note was generated with [employer] dictation software. It may contain incorrect words, [...] problems, contact your Primary Care Provider. Call [email or web address] ([phone]) or report to the closest Emergency Room. Call 911 if necessary. 02/23 1228 <Electronically signed by Nelson Soria MD> Date Nelson Soria MD Cosigner Signature (If Indicated): Date CC: Sara Swartz NP 23-Feb-2018 Chest 1 View (Portable) Result: Comments: See Note; NOTES: [facility] Imaging Services [address] [place] [address] Chest 1 View (Portable) MR#: [id number] Acct: [id number] Name: GABBI ROLLE Rep #: [id number] : 1945 F 72 From: Heriberto Dickey PCP: Sara Swartz NP Status: REG ER Study: Chest 1 View (Portable) Date of Exam: 02/23/18 Exam# [id number] Ordering Dr: Nelson Soria MD STUDY: X-RAY [...] CC: Sara Swartz NP; Nelson Soria MD Labor Relations Worker: Signed 06-Feb-2018 12 Lead Electrocardiogram Result: Comments: See Note; NOTES: [facility] Cardiovascular Services [address] [place] [address] 12 Lead EKG 02/04/18 1427 MR#: [id number] Acct: [id number] Name: GABBI ROLLE Re p #: [id number] : 1945 72 From: Niraj Raymundo MD [...] ECG Confirmed by RIGOBERTO BALDWIN, NIRAJ ([id number]), continuity editor JONATHON ROLLE ([id number]) on 02/06/2018 9:00:22 AM Referred By: SAMMIE Confirmed By:NIRAJ RAYMUNDO MD 02/06/18 0900 Date Niraj Raymundo MD CC: Sara Swartz NP; Hayde Ruvalcaba DO Signed 04-Feb-2018 Emergency Department Summary Result: Comments: See Note; NOTES: [facility] Medical Records Department [address] [place] [address] Emergency Department Summary 02/04/18 1225 MR#: [id number] Acct: [id number] Name: GABBI ROLLE Rep #: [id number] : 1945 72 From: Hayde Ruvalcaba DO [...] is pe nding Treatment Plan: [Transfer to [facility]]. I discussed case with checker/stocker who accepted transfer of the patient. I did give patient 5 mg of vitamin K subcu. Disposition: [Transfer] Impre ssion: Upper GI bleed and lower GI bleed [] This note was generated with PROGENESIS TECHNOLOG[employer]ation software. It may contain incorrect words, spelling, [...] your Primary Care Provider. Call [facility] ([phone]) or report to the closest Emergency Room. Call 911 if necessary. 02/04/18 1715 <Electronically signed by Hayde Ruvalcaba DO> Date Hayde Ruvalcaba DO Cosigner Signature (If Indicated): Da te CC: Sara Swartz NP 04-Feb-2018 GI Bleed Scan Result: Comments: See Note; NOTES: [facility] Imaging Services [address] [place] [address] GI Bleed Scan MR#: [id number] Acct: [id number] Name: GABBI ROLLE Rep #: [id number] : 1945 F 72 From: Manuel Montoya MD PCP: Sara Swartz NP Status: REG ER Study: GI Bleed Scan Date of Exam: 02/04/18 Exam# [id number] Ordering Dr: Hayde Ruvalcaba DO NM GI [...] , NM/GI Bleed Scan CC: Sara Swartz OPAL MINER; Hayde Ruvalcaba DO Labor Relations Worker: Signed 29-Jan-2018 Oncology Visit Report Result: Comments: See Note; NOTES: [facility] [address] [place] [address] OFFICE VISIT Date of Service: 01/29/18 1339 MR#: [id number] Acct: [id number] Name: GABBI ROLLE Rep #: [id number] : 1945 From: Halley Khan MD Age/Sex: [...] consider capsule study) despite oral iron supplementation (retirement) . Patient was transfused with packed red [...] puff IH DAILY 01/03/18 [Combivent Respimat Inhal [place] ] Furosemide [Lasix] 40 mg PO BID 01/15/18 Primary Care Provider: Sara Swartz Referring Provider: Halley Khan MD 01/29/18 4692 <Electronically signed by Halley Khan MD> John e Halley Khan MD Cosigner Signature: Date (if applicable) CC: Sara Swartz 16-Jan-2018 Surgery Visit Report Result: Comments: See Note; NOTES: [facility] [address] [place] [address] OFFICE VISIT Date of Service: 01/15/18 MR#: [id number] Acct: [id number] Name: GABBI ROLLE Rep #: [id number] : 1945 Provider: Bo Madrid MD Age/Sex: 72/F Location: [facility] Status: Signed Intake Intake Visit Reasons: F/U [...] Confirmed 01/08/18] Ipratropium/Albuterol Sulfate [Combivent Respimat Inhal [place]] 1 puff IH DAILY 01/03/18 [History Confirmed 01/08/18] Furosemide [Lasix] 40 mg PO BID 01/15/18 [History Confirmed 01/15/18] PFSH Medical History Atherosclerotic heart disease of [place] coronary artery with out angina pectoris (Chronic) [...] no longer needed. Bo Madrid MD Pager: [facility] [address] [place] [address], [address] [place] [address] Office: Fax: Coding Level of Care Code Global Post Op Diagnoses Encounter for insertion of venous access port Z45.2 01/16/18 0936 <Electronically signed by Bo Madrid MD> D ate Bo Madrid MD Cosigner Signature: Date (if applicable) CC: Sara Swartz NP 08-Jan-2018 Operative Report Result: Comments: See Note; NOTES: [facility] Medical Records Department [address] [place] [address] [place] [address] Operative Report 01/08/18 1157 MR#: [id number] Acct: [id number] Name: FINA ROLLE Rep #: [id number] : 1945 72 From: Bo Madrid MD PCP: Sara Swartz NP Status: REG SDC Y Location: [place] [address] Problem List (1) Encounter for insertion of venous access port Status: [place] (2) Anemia Status: Chronic Qualifiers: Anemia type: [...] x-ray will be obtained. Grafts/Implants Used: 8 Frisian PowerPort and right IJ 01/08/18 1158 <Electronically signed by Bo Madrid MD> Date __ Bo Madrid MD CC: Sara Swartz NP; Bo Madrid MD Signed 08-Jan-2018 CXR for Line Placement Result: Comments: See Note; NOTES: [facility] Imaging Services [address] [place] [address] CXR for Line Placement MR#: [id number] Acct: [id number] Name: GABBI ROLLE Rep #: [id number] : 1945 F 72 From: Irvin Cho MD PCP: Sara Swartz NP Status: REG [facility] Study: CXR for Line Placement Date of Exam: 01/08/18 Exam# [id number] Ordering Dr: Bo Madrid MD STUD Y: [...] Irvin Cho MD at 12:57 EDT Tel [phone], Service support , CC: Sara Swartz NP; Bo Madrid MD Labor Relations Worker: Signed 08-Jan-2018 Discharge Instruction Result: Comments: See Note; NOTES: [facility] Medical Records Department [address] [place] [address] Instructions for Home/Discharge Instructions 01/08/18 1155 MR#: [id number] Acct: [id number] Name: GABBI ROLLE Rep #: [id number] : 1945 72 From: Bo Madrid MD PCP: Tia SANABRIA, Sara Status: REG [facility] Discharge Diet: No Restrictions - Pain medication [...] 11/29/17 Ipratropium/Albute rol Sulfate [Combivent Respimat Inhal [place]] 1 puff IH DAILY 01/03/18 Primary Care Physician: Sara Swartz [Primary Care Provider] - Please Follow Up With: Bo Madrid MD When: call tomorrow to make 2 week follow up appt [phone] 01/08/18 1156 <Electronically signed by Bo Madrid MD> Date Bo Madrid MD CC: Sara Swartz NP 03-Jan-2018 Surgery Visit Report Result: Comments: See Note; NOTES: [facility] [address] [place] [address] OFFICE VISIT Date of Service: 01/03/18 MR#: [id number] Acct: [id number] Name: GABBI ROLLE Alexandro Rep #: [id number] : 1945 Provider: Bo Madrid MD Age/Sex: 72/F Location: [facility] Status: Signed Intake Vital Signs01/03/18 Height 5 ft 7 in 01/03/18 Weight: 378 lb 9 oz Body Mass Index (BMI) 59.3 Intake Visit Reasons: Port Placement Chief Complaint: port consult [place] [employer] Member Required: No Is patient in pain?: No [...] Confirmed 01/03/18] Ipratropium/Albuterol Sulfate [Combivent Respimat Inhal [place]] 1 puff IH 01/03/18 [History Confirmed 01/03/18] Is last menstrual p eriod known: No Post menopausal: Yes Patient : No PFSH Medical History Atherosclerotic heart disease of [place] coro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 pect veronika (Chronic) [...] safe at home: Yes HPI HPI HPI: GBABI ROLLE, is a 72 F who presents [...] the day of. Bo Madrid MD Pager: [facility] [address] [place] [address], [address] [place] [address] Office: Coding Level of Care Code Off vis,new,level 3 Diagnoses Encounter for insertion of venous access port Z45.2 8 1517 <Electronically signed by Bo Madrid MD> Date Bo Madrid MD Cosigner Signature: Date (if applicable) CC: Sara Swartz OPAL MINER; Halley Khan MD 01-Jan-2018 Oncology Visit Report Result: Comments: See Note; NOTES: [facility] [address] [place] [address] OFFICE VISIT Date of Service: 01/01/18 1254 MR#: [id number] Acct: [id number] Name: GABBI ROLLE Rep #: [id number] : 1945 From: Halley Khan MD Age/Sex: [...] consider capsule study) despite oral iron supplementation (retirement) . Patient was transfused with packed red [...] CXR (Obl/Decub/A/L) Result: Comments: See Note; NOTES: [facility] Imaging Services [address] [place] [address] Special CXR (Obl/Decub/A/L) MR#: [id number] Acct: [id number] Name: GABBI ROLLE Rep #: [id number] : 1945 F 72 From: Geovanni Roper MD PCP: Sara Swartz NP Status: REG CLI Study: Special CXR (Obl/Decub/A/L) Date of Exam: 12/23/17 Exam# [id number] Ordering Dr: Carlos Nelson MD STUDY: X-RAY CHEST REASON FOR EXAM: Female, 72 years old. Dyspnea TECHNIQUE: Bilateral decubitus. COMPARISON: Radiographs of the same date.. FINDINGS: On the l eft there is a small layering pleural effusion. On the right no significant free- flowing fluid. Electronically Signed: Geovanni Roper MD at 16:00 EDT , Service support 08-26 [phone], RAD/Special CXR (Obl/Decub/A/L) CC: Sara Swartz NP; Carlos Nelson MD Labor Relations Worker: Signed 23-Dec-2017 Special CXR (Obl/Decub/A/L) Result: Comments: See Note; NOTES: [facility] Imaging Services [address] [place] [address] Special CXR (Obl/Decub/A/L) MR#: [id number] Acct: [id number] Name: GABBI ROLLE Rep #: [id number] : 1945 F 72 From: Geovanni Roper MD PCP: Sara Swartz NP Status: REG CLI Study: Special CXR (Obl/Decub/A/L) Date of Exam: 12/23/17 Exam# [id number] Ordering Dr: Carlos Nelson MD STUDY: X-RAY [...] CC: Sara Swartz NP; Carlos Nelson MD Labor Relations Worker: Signed 23-Dec-2017 Chest PA and Lateral Result: Comments: See Note; NOTES: [facility] Imaging Services [address] [place] [address] Chest PA and Lateral MR#: [id number] Acct: [id number] Name: GABBI ROLLE Rep #: [id number] : 1945 F 72 From: Geovanni Roper MD PCP: Sara Swratz NP Status: REG CLI Study: Chest PA and Lateral Date of Exam: 12/23/17 Exam# [id number] Ordering Dr: Carlos Nelson MD STUDY: X-RAY [...] , Service support , CC: Sara Swartz OPAL MINER; Carlos Nelson MD Labor Relations Worker: Signed 06-Dec-2017 Oncology Visit Report Result: Comments: See Note; NOTES: [facility] [place] [address] OFFICE VISIT Date of Service: 12/05/17 1029 MR#: [id number] Acct: [id number] Name: GABBI ROLLE Rep #: [id number] : 1945 From: Halley Khan MD Age/Sex: [...] in 2016). Patient is being seen in [facility] [place] for chronic, recurrent anemia that has been [...] consider capsule study) despite oral iron supplementation (retirement) . Patient was transfused with packed red [...] View (Portable) Result: Comments: See Note; NOTES: [facility] Imaging Services [address] [place] [address] Chest 1 View (Portable) MR#: [id number] Acct: [id number] Name: GABBI ROLLE Rep #: [id number] : 1945 F 72 From: Norah Arreaga MD PCP: Sara Swartz NP Status: REG ER Study: Chest 1 View (Portable) Date of Exam: 11/29/17 Exam# [id number] Ordering Dr: Gabi Gardner MD STUDY: X-R [...] , Service support , CC: Sara Swartz OPAL MINER; Gabi Gardner MD Labor Relations Worker: Signed 22-Nov-2017 12 Lead Electrocardiogram Result: Comments: See Note; NOTES: [facility] Cardiovascular Services [address] [place] [address] 12 Lead EKG 11/18/17 1440 MR#: [id number] Acct: [id number] Name: GABBI ROLLE Alexandro Saravia p #: [id number] : 1945 72 From: Niraj Raymundo MD [...] Abnormal ECG Confirmed by RIGOBERTONIRAJ ANNE MD ([id number]), continuity editor JONATHON ROLLE ([id number]) on 11/22/2017 12:57:07 PM Referred By: JOO Confirmed By:NIRAJ RAYMUNDO MD 11/22/17 1257 Date Niraj Raymundo MD CC: Sara Swartz NP; Ariane Lakhani MD Signed 18-Nov-2017 Emergency Department Summary Result: Comments: See Note; NOTES: [facility] Medical Records Department [address] [place] [address] Emergency Department Summary 11/18/17 1735 MR#: [id number] Acct: [id number] Name: GABBI ROLLE Rep #: [id number] : 1945 72 From: Ariane Lakhani MD [...] weeks to see benefit. She called her materials handler today to see if she needed to [...] Dyspnea This note was gene rated with Scoville dictation software. It may contain incorrect words, [...] your Primary Care Provider. Call [facility] ([phone]) or report to the closest Emergency Room. Call 911 if necessary. 11/18/171747 <Electronica lly signed by Ariane Lakhani MD> Date Ariane Lakhani MD Cosigner Signature (If Indicated): Date CC: Sara Swartz OPAL MINER 18-Nov-2017 Discharge Instruction Result: Comments: See Note; NOTES: [facility] Medical Records Department [address] [facility] [address] Discharge Instruction 11/18/171739 MR#: [id number] Acct: [id number] Name: GABBI ROLLE Rep #: [id number] : 1945 72 From: Ariane Lakhani MD [...] your Primary Care Provider. Call [facility] ([phone]) or report to the closest Emergency Room. Call 911 if necessary. 11/18/17 1743 <Electronically signed by Ariane Lakhani MD> Date Ariane Lakhani MD Cosigner Signature (If Indicated): Date CC: Sara Swartz NP 18-Nov-2017 Chest PA and Lateral Result: Comments: See Note; NOTES: [facility] Imaging Services [address] [place] [address] Chest PA and Lateral MR#: [id number] Acct: [id number] Name: GABBI ROLLE Rep #: [id number] : 1945 F 72 From: Aaron Kenyon MD PCP: Sara Swartz NP Status: REG ER Study: Chest PA and Lateral Date of Exam: 11/18/17 Exam# [id number] Ordering Dr: Ariane Lakhani MD STUDY: X-RAY [...] , Service support , CC: Sara Swartz OPAL MINER; Ariane Lakhani MD Labor Relations Worker: Signed 04-Nov-2017 Oncology Visit Report Result: Comments: See Note; NOTES: [facility] [address] [place] [address]. [place] [address] OFFICE VISIT Date of Service: 11/04/17 1252 MR#: [id number] Acct: [id number] Name: GABBI ROLLE Rep #: [id number] : 1945 From: Halley Khan MD Age/Sex: [...] with Dr. 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 Patient was transfused with packed red [...] Result: Comments: See Note; NOTES: [facility] [address] [place] [address] OFFICE VISIT Date of Service: 10/19/17 MR#: [id number] Acct: [id number] Name: GABBI ROLLE p #: [id number] : 1945 Provider: Serge DOE Age/Sex: 72/F Location: [facility] [place] [facility] Status: Signed Intake Vital Signs10/19/17 Height 5 [...] PFSH Medical History Atherosclerotic heart disease of [place] coro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 pectoris (Chronic) Chronic [...] the above. This note was generated with Scoville dictation software. It may contain incorrect words, [...] Visit Report Result: Comments: See Note; NOTES: [facility] [address] [place] [address]. [address] [place] [address] OFFICE VISIT Date of Service: 09/18/17 MR#: [id number] Acct: [id number] Name: GABBI ROLLE Rep #: [id number] : 1945 Provider: DANIELE Figueredo Age/Sex: 72/F Location: [facility] [place] Status: Signed HPI 4 M FU: Details: GABBI ROLLE, is a 72 F who [facility]. Patient has a history of [...] radial Intake Visit Reasons: 4 M FU [place] [employer] Member Required: No Accompanied by: None Is patient [...] PFSH Medical History Atherosclerotic heart disease of [place] c oro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 pectoris (Chronic) [...] affect Assessment AND Plan 1. Atherosclerosis of [place] coronary artery of [place] heart without angina pectoris I25.10 [facility]: 07/30/2006; 04/10/17 ROSALIND King Patient's most re [...] prior to saving. Follow Up 6 Months ([employer]) Coding Level of Care Code Off vis,est,level 3 Diagnoses Atherosclerosis of [place] coronary artery of [place] heart without angina pectoris I25.10 [place] vs. transplanted heart: [place] heart Chronic atrial fibrillation I48.2 Iron deficiency anemia, unspecifie d iron deficiency anemia type D50.9 Anemia type: iron deficiency Iron deficiency anemia type: unspecified iron deficiency Other secondary pulmonary hypertension I27.29 Nonrheumatic aortic (valve) stenos is I35.0 Essential hypertension I10 Hypertension type: essential hypertension Mixed hyperlipidemia E78.2 Hyperlipidemia type: mixed hyperlipidemia Coding Level of Care Code Off vis,est,level 3 Diagno ses Atherosclerosis of [place] coronary artery of [place] heart without angina pectoris I25.10 [place] vs. transplanted heart: [place] heart Chronic atrial fibrillation I48.2 Iron deficiency anemia, unspeci fied iron deficiency anemia type D50.9 Anemia type: iron deficiency Iron deficiency anemia type: unspecified iron deficiency Other secondary pulmonary hypertension I27.29 Nonrheumatic aortic (valve) jamie nosis I35.0 Essential hypertension I10 Hypertension type: essential hypertension Mixed hyperlipidemia E78.2 Hyperlipidemia type: mixed hyperlipidemia 09/18/17 1515 <Electronically signed by Mendez Figueredo OPAL MINER-C> Date Lazaro GARCIAC 09/20/17 1531<Electronically signed by Niraj Raymundo MD> Cosigner Signature: Date ____ (if applicable) Niraj Raymundo MD CC: Sara Swartz NP 06-Aug-2017 Chest PA and Lateral Result: Comments: See Note; NOTES: [facility] Imaging Services [address] [place] [address] Chest PA and Lateral MR#: [id number] Acct: [id number] Name: GABBI ROLLE Rep #: [id number] : 1945 F 72 From: Ariane Crook MD PCP: Sara Swartz NP Status: REG CLI Study: Chest PA and Lateral Date of Exam: 08/06/17 Exam# [id number] Ordering Dr: Kaykay Layne OPAL MINER-Cassie STUDY: X-RAY C HEST REASON FOR EXAM: [...] Crook MD at 17:23 EST Tel Direct: [phone], Service support 08-26 [phone], CC: Sara Swartz NP; OPAL MINER-C Kaykay Layne Labor Relations Worker: Signed 30-Jul-2017 Breast Limited Unilateral Result: Comments: See Note; NOTES: [facility] Imaging Services [address] [place] [place] [address] Breast Limited Unilateral MR#: [id number] Acct: [id number] Name: GABBI ROLLE Rep #: [id number] : 1945 F 72 From: Irvin Cho MD PCP: Sara Swartz NP Status: REG CLI Study: Breast Limited Unilateral Date of Exam: 07/30/17 Exam# [id number] Ordering Dr: Sara Swartz STUDY: UL TRASOUND [...] Irvin Cho MD at 12:42 EST Tel [phone], Servic e support , CC: Sara Swartz NP Labor Relations Worker: Signed 23-Jul-2017 SCREENING MAMM (CAD), BILAT Result: Comments: See Note; NOTES: [facility] Imaging Services [address] [facility] [place] [address] SCREENING MAMM (CAD), BILAT MR#: [id number] Acct: [id number] Name: GABBI ROLLE Rep #: [id number] : 1945 F 72 From: Irvin Cho MD PCP: Sara Swartz NP Status: REG CLI Study: SCREENING MAMM (CAD), BILAT Date of Exam: 07/23/17 Exam# [id number] Ordering Dr: Sraa Swartz MAMMO GRAPHY - BILATERAL SCREENING REASON [...] delay biopsy of a clinically suspicious abnormality. [id number] El ectronically Signed: Irvin Cho MD at 9:57 EST Tel [phone], Service support , CC: Sara Swartz NP Labor Relations Worker: Signed 10-May-2017 History and Physical Exam Result: Comments: See Note; NOTES: [facility] Medical Records Department [address] [facility] [place] [address] History and Physical 05/10/17 1126 MR#: [id number] Acct: [id number] Name: Alvina ROLLE Rep #: [id number] : 1945 71 From: Halley Khan MD [...] iron but tends to recur. Power of Lining Ironer: Yes Living Will: Yes Health History: Past [...] Hemoptysis Gastrointestinal:: Reports: Hematochezia, - - Periodic AK bleed, red no melena No reflux symptoms. [...] and Lateral Result: Comments: See Note; NOTES: [facility] Imaging Services [address] [facility] [place] [address] Chest PA and Lateral MR#: [id number] Acct: [id number] Name: GABBI ROLLE Rep #: [id number] : 1945 F 71 From: Ariane Crook MD PCP: Sara Swartz Status: REG CLI Study: Chest PA and Lateral Date of Exam: 03/26/17 Exam# [id number] Ordering Dr: Niraj Raymundo MD STUDY: X-RAY [...] Ariane Crook MD at 20:49 EDT Tel [phone], Service support , CC: Sara Swartz; Niraj Raymundo MD Labor Relations Worker: Signed 05-Mar-2017 Venous Duplex Lower Extremity Result: Comments: See Note; NOTES: [facility] Cardiovascular Services [address] [place] [address] Venous Duplex US, Unilateral 03/05/17 1427 MR#: [id number] Acct: [id number] Name: GABBI MCGOVERN Rep #: [id number] : 1945 71 From: Francisco Ji MD Attending Dr: Heron Hobbs Status: REG CLI Ordering Dr: Heron Hobbs MD Date: 03/05/17 Location: [facility] Sex: F C Admitted: Reason For [...] Date Dictated: 03/05/17 1427 Date Transcribed: 03/05/171601 Labor Relations Worker: Signed 04-Feb-2017 Kidney and Bladder Result: Comments: See Note; NOTES: [facility] Imaging Services [address] [place] [address] Verdana 4d Kidney and Bladder MR#: [id number] Acct: [id number] Name: GABBI ROLLE Rep # : [id number] : 1945 F 71 From: Irvin Galarza DO PCP: Sara Swartz Status: REG CLI Study: Kidney and Bladder Date of Exam: 02/04/17 Exam# [id number] Ordering Dr: Natalia Mccurdy DO STUDY: RENAL ULTRAS OUND - COMPLETE REASON FOR EXAM: Female, 71 years old. Chronic kidney disease stage III TECHNIQUE: Ultrasound evaluation of the kidneys was performed with real-time and static ruggiero-scale imaging. [email or web address] PARISON: None. FINDINGS: RIGHT KIDNEY: Normal location [...] Irvin Galarza DO at 22:55 EDT Tel [phone], Service support , CC: Sara Swartz; Natalia Mccurdy DO Labor Relations Worker: Signed 09-Dec-2016 Emergency Department Summary Result: Comments: See Note; NOTES: [facility] Medical Records Department [address] [place] [address] Emergency Department Summary MR#: [id number] Acct: [id number] Name: FINA ROLLE Rep #: [id number] : 1945 71 From: Maral Palacios MD [...] Dehydration. Maral Palacios MD T: NTS JOB: [id number] 12/09/16 0728 <Electronically signed by Maral Palacios MD> Date Maral Palacios MD Cosigner Signature (If Indicated ): Date CC: Sara Nixonyany Date Dictated: 12/09/1604 Date Transcribed: 12/09/16703 Labor Relations Worker: Signed 09-Dec-2016 Chest PA and Lateral Result: Comments: See Note; NOTES: [facility] Imaging Services [address] [place] [address] Verdana 4d Chest PA and Lateral MR#: [id number] Acct: [id number] Name: GABBI ROLLE Rep #: [id number] : 1945 F 71 From: Aaron Kenyon MD PCP: Sara Swartz Status: REG ER Study: Chest PA and Lateral Date of Exam: 12/09/16 Exam# [id number] Ordering Dr: Maral Palacios MD STUDY: X-RAY [...] Tel , Service support , Fa x [phone] CC: Sara Swartz; Maral Palacios MD Labor Relations Worker: Signed 10-Sep-2016 Stress Test Echo w/o Contrast Result: Comments: See Note; NOTES: [facility] Cardiovascular Services [address] [place] [address] Verdana 4d Stress Test Echo w/o Contrast MR#: [id number] Acct: [id number] Name: GABBI WAY Rep #: [id number] : 1945 71 From: Niraj Raymundo MD [...] Dictated: 09/10/16 1258 Date Transcribed: 09/10/16 1523 Labor Relations Worker: Signed 27-Jul-2016 Bilat Scrn Digital AND CAD Result: Comments: See Note; NOTES: [facility] Imaging Services [address] [place] [address] Verdana 4d Bilat Scrn Digital AND CAD MR#: [id number] Acct: [id number] Name: GABBI ROLLE Rep #: [id number] : 1945 F 71 From: Irvin Cho MD PCP: Jacinto Sheehan Status: REG CLI Study: Bilat Scrn Digital AND CAD Date of Exam: 07/27/16 Exam# [id number] Ordering Dr: Jacinto Sheehan MAMMOGRAPHY - BILATERAL [...] delay biopsy of a clinically suspicious abnormality. [id number] Electronically Signed: Irvin Cho MD at 10:02 EST Tel [phone], Service support [phone], CC: Jacinto Sheehan Labor Relations Worker: Signed 11-Apr-2016 Dexa Bone Density/Append Skel Result: Comments: See Note; NOTES: [facility] Imaging Services [address] [place] [address] Ajaydamichael 4d Dexa Bone Density/Append Skel MR#: [id number] Acct: [id number] Name: SHYAM ROLLE Rep #: [id number] : 1945 F 70 From: Irvin Cho MD PCP: Jacinto Sheehan Status: REG CLI Study: Dexa Bone Density/Append Skel Date of Exam: 04/11/16 Exam# [id number] Ordering Dr: Jacinto Sheehan STUDY: DUAL ENERGY [...] Irvin Cho MD at 11:29 EDT Tel [phone], Ser vice support [phone], CC: Jacinto Sheehan Labor Relations Worker: Signed 26-Dec-2015 Liver Result: Comments: See Note; NOTES: [facility] Imaging Services [address] [place] [address] Verdana 4d Liver MR#: [id number] Acct: [id number] Name: GABBI ROLLE Rep # : [id number] : 1945 F 70 From: Irvin Cho MD PCP: Brittany Abraham DO Status: REG CLI Study: Liver Date of Exam: 12/26/15 Exam# [id number] Ordering Dr: Brittany Abraham DO STUDY: ABDOMINAL [...] Irvin Cho MD at 12:58 EDT Tel [phone], Service support [phone], CC: Brittany Abraham DO Labor Relations Worker: Signed 25-Jul-2015 Bilat Scrn Digital AND CAD Result: Comments: See Note; NOTES: [facility] Imaging Services [address] [place] [address] Verdana 4d Bilat Scrn Digital AND CAD MR#: [id number] Acct: [id number] Name: GABBI ROLLE Rep #: [id number] : 1945 F 70 From: Irvin Cho MD PCP: Brittany Abraham DO Status: REG CLI Study: Bilat Scrn Digital AND CAD Date of Exam: 07/25/15 Exam# [id number] Therese trujillo Dr: Brittany Abraham DO MAMMOGRAPHY [...] delay biopsy of a clinically suspicious abnormality. [id number] Electronically Signed: Irvin Cho MD at 8:59 EST Tel [phone], Service support [phone], CC: Brittany Abraham DO Labor Relations Worker: Signed 22-Jun-2015 Carotid Duplex Ultrasound Result: Comments: See Note; NOTES: [facility] Cardiovascular Services [address] [place] [address] Carotid Duplex Ultrasound 06/17/15 0851 MR#: [id number] Acct: [id number] Name: GABBI ROLLE Rep #: [id number] : 1945 70 From: Sharath Mortensen MD [...] the left vertebral artery. Procedure Carotid Duplex 19781. The exam was diagnostic. The study was [...] Date Dictated: 06/17/15 0851 Date Transcribed: 06/22/1540 Labor Relations Worker: Signed 24-Mar-2015 Pulmonary Function Report Comp Result: Comments: See Note; NOTES: [facility] Pulmonary Services/Neurology [address] [place] [address] Pulmonary Function Test (Comp) MR#: [id number] Acct: [id number] Name: GABBI WAY Rep #: [id number] : 1945 69 From: Pako Ander MD Referring Dr: Brittany Abraham DO Status: [...] edema. PAKO ANDRE MD T: NTS JOB: [id number] SPIROMETRY Ref ULN/LLN Pre Pre Post Post [...] Date Dictated: 1554 Date Transcribed: 03/22/15 155 Labor Relations Worker: Signed 11-Mar-2015 Echocardiogram Complete Result: Comments: See Note; NOTES: [facility] Cardiovascular Services [address] [place] [address] Echo Complete 03/11/15 1108 MR#: [id number] Acct: [id number] Name: Alvina ROLLE Rep #: [id number] : 1945 69 From: Niraj Raymundo MD Attending Dr: Niraj Raymundo MD Status: REG CLI Ordering Dr: Niraj Raymundo MD Date: 03/11/15 Location: [facility] Sex: F C Admitted: Rita fernandez [...] Ordering Physician: Niraj Raymundo Referring Physician: Brittany Abraham D.O. Performed By: Carley Suazo RVT 03/11/15 1247 Date Niraj Raymundo MD CC: Brittany Abraham DO Date Dictated: 03/11/15 1108 Date Transcribed: 03/11/15 1247 Labor Relations Worker: Signed 23-Jul-2014 Suha Terry Digital & CAD Result: Comments: See Note; NOTES: [facility] Imaging Services [address] [place] [address] Breast Imaging Report MR#: [id number] Acct: [id number] Name: GABBI ROLLE Rep #: [id number] : 1945 F 69 From: Irvin Cho MD PCP: Brittany Abraham DO Status: REG CLI Exam# [id number] Ordering Dr: Brittany Abraham DO MAMMOGRAPHY - [...] small lymph nodes. CC: Brittany Abraham DO Labor Relations Worker: Signed 29-Jun-2014 Knee 4 or More Views Result: Comments: See Note; NOTES: [facility] Imaging Services [address] [place] [address] Radiology Report MR#: [id number] Acct: [id number] Name: GABBI ROLLE Rep #: [id number] : 1945 F 69 From: Po Segovia DO PCP: Brittany Abraham DO Status: REG CLI Study: Knee 4 or More Views Date of Exam: 06/29/14 Exam# [id number] Ordering Dr: Brittany Abraham DO STUDY: X-RAY [...] at 6:27 EST Tel , Service support [phone], CC: Brittany Abraham DO Labor Relations Worker: Signed 29-Jun-2014 Knee 4 or More Views Result: Comments: See Note; NOTES: [facility] Imaging Services [address] [place] [address] Radiology Report MR#: [id number] Acct: [id number] Name: GABBI ROLLE Rep #: [id number] : 1945 F 69 From: Po Segovia DO PCP: Brittany Abraham DO Status: REG CLI Study: Knee 4 or More Views Date of Exam: 06/29/14 Exam# [id number] Ordering Dr: Brittany Abraham DO STUDY: X-RAY [...] 6:35 EST Tel , Service [place] [phone], CC: Brittany Abraham DO Labor Relations Worker: Signed 08-Feb-2014 OT Discharge Summary Result: Comments: See Note; NOTES: [facility] Occupational Therapy [facility] [address] [place] [address]. [address] [place] [address] Fax REHABILITATION SERVIC ES DISCHARGE SUMMARY MR#: [id number] Acct: [id number] Name: GABBI ROLLE Rep #: [id number] : 1945 68 From: Flavia Metz Referring DrYuli: Brittany Abraham DO Status: PRE RCR Eval [...] was to receive compression g arments through [facility]. The order was faxed over to them for the compression garments. However, unaware if the patient received those garments. At this time, again the patient was to return fo r followup visits to ensure proper fitting of compression hose. At this time, she has not done so and is discharged. Flavia Metz, OTR/L T: NTS JOB: [id number] <Electronically signed by Flavia Metz > 02/08/14 1513 CC: Signed 22-Dec-2013 Initial Evaluation - OT Result: Comments: See Note; NOTES: [facility] Occupational Therapy [address] [place] [address] Fax [facility]#: [id number] Acct: [id number] Name: GABBI ROLLE Rep #: [id number] : 1945 68 From: Flavia Metz Referring DrYuli: Brittany Abraham DO Status: DIS RCR Insurance: M [employer] PART A B Eval Date: [place] DATE OF SERVICE: 12/15/2013 PHYSICIAN: Brittany Abraham [...] understanding. Flavia Metz OTR/L T: NTS JOB: [id number] <Electr onically signed by Flavia Metz > 12/22/13 1311 CC: Signed For Medicare only, by signing this I certify the plan of care. Physicians Signature Date 14-Dec-2013 Liver Result: Comments: See Note; NOTES: [facility] Imaging Services [address] [place] [address] Ultrasound Report MR#: [id number] Acct: [id number] Name: GABBI ROLLE Rep #: [id number] : 1945 F 68 From: Irvin Cho MD PCP: Brittany Abraham DO Status: REG CLI Study: Liver Date of Exam: 12/14/13 Exam# [id number] Ordering Dr: Brittany Abraham DO STUDY: ABDOMINAL [...] Irvin Cho MD at 10:02 EDT Tel [phone], Service support [phone], CC: Brittany Abraham DO Labor Relations Worker: Signed 18-Nov-2013 Chest PA and Lateral Result: Comments: See Note; NOTES: [facility] Imaging Services [address] [place] [address] Radiology Report MR#: [id number] Acct: [id number] Name: GABBI ROLLE Rep #: [id number] : 1945 F 68 From: Irvin Cho MD PCP: Brittany Abraham DO Status: REG CLI Study: Chest PA and Lateral Date of Exam: 11/18/13 Exam# [id number] Ordering Dr: Sara Swartz STUDY: X-RAY CHEST [...] M.D. at 15:41 EDT , Service support [phone], CC: Sara Swartz; Brittany Abraham DO Labor Relations Worker: Signed 03-Nov-2013 Chest PA and Lateral Result: Comments: See Note; NOTES: [facility] Imaging Services [address] [place] [address] Radiology Report MR#: [id number] Acct: [id number] Name: GABBI ROLLE Rep #: [id number] : 1945 F 68 From: Irvin Cho MD PCP: Brittany Abraham DO Status: REG CLI Study: Chest PA and Lateral Date of Exam: 11/03/13 Exam# [id number] Ordering Dr: Brittany Abraham DO STUDY: X- [...] M.D. at 11:18 EDT , Service support [phone], Fax CC: Brittany Abraham DO Labor Relations Worker: Signed 30-Jul-2013 Suha [employer] Result: Comments: See Note; NOTES: [facility] Imaging Services [address] [place] [address] Breast Imaging Report MR#: [id number] Acct: [id number] Name: GABBI ROLLE Rep #: [id number] : 1945 F 68 From: Irvin Cho MD PCP: Brittany Abraham DO Status: REG CLI Exam# [id number] Ordering Dr: Brittany Abraham DO MAMMOGRAPHY - [...] at 8:11 EST Tel , Service support [phone], CC: Brittany Abraham DO Labor Relations Worker: Signed 30-Jul-2013 Dexa Bone Density Study (HP) Result: Comments: See Note; NOTES: [facility] Imaging Services [address] [place] [address] Bone Density Report MR#: [id number] Acct: [id number] Name: GABBI ROLLE Rep #: : 1945 F 68 From: Irvin Cho MD PCP: Brittany Abraham DO Status: REG CLI Study: Dexa Bone Density Study (HP) Date of Exam: 07/30/13 Exam# [id number] Ordering Dr: Brittany Abraham DO STUDY: DUAL [...] M.D. at 9:58 EST , Service support [phone], CC: Brittany Abraham DO Labor Relations Worker: Signed Immunization Name Dates Details Influenza (3 [...] Height 0 in Head Circumference 0.00 cm 05-Vkr-474959:15 Temperature 97.6 f Comments: Method: Oral Pulse [...] Description Value Details :34 HgA1C , Office (76334) HgA1C , Office 5.4 % (Normal) Range: 4.6 - 7.1 :34 Blood Glucose , Office (23806) Blood Glucose , Office 145 (Normal) 19-Ihh-900899:14 Basic Metabolic Profile (BMP) Comments: [facility] [address] [place], [address] GAP 8 (Normal) Range: 5-15 CO2 28.0 [...] A.D.A. criteria.Please note revised GLUCOSE reference range atkwjakrg81/02/2018. 64-Kfc-325690:14 PTHIN 127.7 pg/mL (Abnormal) Comments: [facility] [address] [place], [id number] Range: 18.4-80.1 94-Lgs-729163:47 Basic Metabolic Profile (BMP) Comments: [facility] [address] [place], [address] GAP 7 (Normal) Range: 5-15 CO2 25.0 [...] A.D.A. criteria.Please note revised GLUCOSE reference range mgjembdvq14/02/2018. 17-Zxq-432700:47 Renal Profile Comments: [facility] [address] [place], [address] CO2 25.0 mmol/L (Normal) Range: 21.0-32.0 CL [...] A.D.A. criteria.Please note revised GLUCOSE reference range pplseepjr05/02/2018. 45-Ulo-269900:46 CBC W/Diff, Automated Comments: Reason for Laboratory Test .[facility] [address] [place], [address] Absolute Lymph 0.69 {X10_3/ul} (Abnormal) Range: 0.83-4.51 [...] 4.2-5.4 WBC 4.6 K/mm3 (Normal) Range: 4.4-11.0 86-Bdl-040938:46 Ferritin Comments: Reason for Laboratory Test .[facility] [address] [place], [place], [address] FERRITIN 55 ng/mL (Normal) Range: 8-252 52-Ihu-472455:46 Iron+Iron Binding Capacity Comments: Reason for Laboratory Test .[facility] [address] [place], [address] IRON SATURATION 13.4 % (Abnormal) Range: 15.0-55.0 IRON 47 ug/dL (Abnormal) Range: 50-170 TIBC 350 ug/dL (Normal) Range: 250-450 34-Glx-835316:45 Partial Thromboplast Time Comments: [place] [address] [place], [address] PTT 44.5 s (Abnormal) Range: 24.1-36.2 02-Bwo-936564:45 Prothrombin Time w/INR Comments: [place] [address] [place], [address] INR 1.2 (Normal) PROTIME 15.0 s (Abnormal) Range: 11.7-14.9 4-Enh-100023:16 Renal Profile Comments: [place] [address] [place], [address] CO2 24.0 mmol/L (Normal) Range: [...] A.D.A. criteria.Please note revised GLUCOSE reference range wsowclopf61/02/2018. 4-Aqe-401870:15 CBC W/Diff, Automated Comments: Reason for Laboratory Test .[facility] [address] [place], [place], [address] Absolute Lymph 0.91 {X10_3/ul} (Normal) Range: 0.83-4.51 [...] 4.2-5.4 WBC 4.2 K/mm3 (Abnormal) Range: 4.4-11.0 5-Pux-083648:15 Ferritin Comments: Reason for Laboratory Test .[facility] [address] [place], [place], [address] FERRITIN 44 ng/mL (Normal) Range: 8-252 4-Ptz-397404:15 Iron+Iron Binding Capacity Comments: Reason for Laboratory Test .[facility] [address] [place], [place], [phone] IRON SATURATION 11.8 % (Abnormal) Range: 15.0-55.0 IRON 42 ug/dL (Abnormal) Range: 50-170 TIBC 355 ug/dL (Normal) Range: 250-450 51-Jyu-384532:22 CBC W/Diff, Automated Comments: Reason for Laboratory Test DRAW BLOODBANK TUBE FOR TYPE AND [facility] [address] [place], [place], [address] Absolute Lymph 0.76 {X10_3/ul} (Abnormal) Range: 0.83-4.51 [...] 4.2-5.4 WBC 5.7 K/mm3 (Normal) Range: 4.4-11.0 1-Ggp-392336:39 Renal Profile Comments: [facility] [address] [place], [place], [address] CO2 24.0 mmol/L (Normal) Range: 21.0-32.0 CL [...] A.D.A. criteria.Please note revised GLUCOSE reference range nhkntqzik08/02/2018. 1-Pen-040600:04 CBC W/Diff, Automated Comments: Reason for Laboratory Test .[facility] [address] [place], [place], [address] Absolute Lymph 0.85 {X10_3/ul} (Normal) Range: 0.83-4.51 [...] 4.2-5.4 WBC 5.4 K/mm3 (Normal) Range: 4.4-11.0 6-Lnd-387371:04 Ferritin Comments: Reason for Laboratory Test .[facility] [address] [place], [place], [address] FERRITIN 135 ng/mL (Normal) Range: 8-252 1-Ftn-484537:04 Iron+Iron Binding Capacity Comments: Reason for Laboratory Test .[facility] [address] [place], [place], [address] IRON SATURATION 31.9 % (Normal) Range: 15.0-55.0 IRON 117 ug/dL (Normal) Range: 50-170 TIBC 367 ug/dL (Normal) Range: 250-450 69-Ipm-167618:26 CBC W/Diff, Automated Comments: [facility] [address] [place], [place], [address] Absolute Lymph 0.86 {X10_3/ul} (Normal) Range: 0.83-4.51 [...] 4.2-5.4 WBC 5.8 K/mm3 (Normal) Range: 4.4-11.0 23-Wov-092292:26 Comprehensive Metabolic Profil Comments: [facility] [address] [place], [place], [address] GAP 7 (Normal) Range: 5-15 CO2 27.0 [...] A.D.A. criteria.Please note revised GLUCOSE reference range unrzznvcn42/02/2018. 99-Anp-990225:36 Ferritin Comments: Reason for Laboratory Test .[facility] [address] [place], [place], [address] FERRITIN 54 ng/mL (Normal) Range: 8-252 06-Eam-474916:36 Iron+Iron Binding Capacity Comments: Reason for Laboratory Test .[facility] [address] [place], [place], [address] IRON SATURATION 12.7 % (Abnormal) Range: 15.0-55.0 IRON 42 ug/dL (Abnormal) Range: 50-170 TIBC 331 ug/dL (Normal) Range: 250-450 24-Nvk-756780:21 CBC-Complete Blood Cnt No Diff Comments: [facility] [address] [place], [place], [address] MPV 10.8 fL (Normal) Range: 6.2-12.0 PLT [...] 4.2-5.4 WBC 6.2 K/mm3 (Normal) Range: 4.4-11.0 7-Cbf-735013:15 CBC W/Diff, Automated Comments: [address] [place], [place], [address] Absolute Lymph 0.79 {X10_3/ul} (Abnormal) Range: 0.83-4.51 [...] 4.2-5.4 WBC 7.0 K/mm3 (Normal) Range: 4.4-11.0 3-Ico-582876:15 Comprehensive Metabolic Profil Comments: [facility] [address] [place], [place], [address] GAP 8 (Normal) Range: 5-15 CO2 21.0 [...] A.D.A. criteria.Please note revised GLUCOSE reference range rensuumis24/02/2018. 1-Vrt-488267:15 Lactic Acid Comments: Yes/No query for Sepsis Lactate Rule [facility] [address] [place], [place], [address] LACTIC ACID 2.1 mmol/L (Abnormal) Range: 0.4-2.0 Comments: Critical Result(s) Called at: 10:59:09 02/23/2018 by: Juve House RN 6-Cea-936238:15 Partial Thromboplast Time Comments: [address] [place], [address] PTT 36.8 s (Abnormal) Range: 24.1-36.2 0-Sfs-197331:15 Prothrombin Time w/INR Comments: [address] [place], [place], [address] INR 1.2 (Normal) PROTIME 15.2 s (Abnormal) Range: 11.7-14.9 9-Okw-775743:15 Troponin-I Comments: [address] [place], [place], [address] TROPONIN-I < 0.015 ng/mL (Normal) Comments: TROPONIN-I EXPECTED VALUES <0.045 Negative 0.045 - 0.590 Consistent with Cardiac Damage > OR = 0.600 Critical Value Not every elevated troponin is indicative of AL. T hesevalues should be used with clinical judgement in examiningthe patient's clinical picture for diagnosis. To establisha diagnosis of AL versus myocardial injury, there must be ademonstrated rise and/ or fall in the troponin values, inaddition to ischemic symptoms, EKG changes, new regionalwall motion abnormality, and/or angiographical evidence. PLEASE NOTE: REFERENCE RANGES EDITED 12/30/1717-Feb-20180-Opv-945694:10 CBC W/Diff, Automated Comments: CMP, CBCD, PT FOR DR BOOKER [facility] [address] [place], [place], [address] Absolute Lymph 0.84 {X10_3/ul} (Normal) Range: 0.83-4.51 [...] 4.2-5.4 WBC 6.6 K/mm3 (Normal) Range: 4.4-11.0 5-Chr-757910:10 Comprehensive Metabolic Profil Comments: CMP, CBCD, PT FOR DR BOOKER [facility] [address] [place], [address] GAP 8 (Normal) Range: 5-15 CO2 25.0 [...] A.D.A. criteria.Please note revised GLUCOSE reference range nvoorfsas43/02/2018. 4-Qos-081565:10 Ferritin Comments: CMP, CBCD, PT FOR DR BOOKER ARE FOR [facility] [address] [place], [address] FERRITIN 60 ng/mL (Normal) Range: 8-252 1-Tlt-480530:10 Iron+Iron Binding Capacity Comments: CMP, CBCD, PT FOR DR BOOKER ARE FOR [facility]ALSILVIOFort [facility] [address] [place], [address] IRON SATURATION 13.0 % (Abnormal) Range: 15.0-55.0 IRON 44 ug/dL (Abnormal) Range: 50-170 TIBC 339 ug/dL (Normal) Range: 250-450 9-Eec-452505:10 Prothrombin Time w/INR Comments: CMP, CBCD, PT FOR DR BOOKER ARE FOR [facility]ALSILVIOFort [facility] [address] [place], [address] INR 1.2 (Normal) PROTIME 15.3 s (Abnormal) Range: 11.7-14.9 99-Oet-181840:25 Basic Metabolic Profile (BMP) Comments: [facility] [address] [place], [address] GAP 9 (Normal) Range: 5-15 CO2 [...] A.D.A. criteria.Please note revised GLUCOSE reference range izmgtvldn06/02/2018. 87-Krt-480098:25 CBC W/Diff, Automated Comments: [facility] [address] [place], [address] PATH REV Reviewed (Normal) Comments: Severe Macrocytic [...] CRITICAL VALUE VERIFIED. CALLED TO LELE SIN02/04/18 1146 Billie Hays.RESULTS READ BACK BY SAME . RBC 1.86 {M/mm3} (Abnormal) Range: 4.2-5.4 WBC 7.5 K/mm3 (Normal) Range: 4.4-11.0 61-Xvr-313986:25 Prothrombin Time w/INR Comments: [facility] [address] [place], [place], [address] INR 3.7 (Abnormal) Comments: CRITICAL VALUE VERIFIED. CALLED TO LELE DILL02/04/18 1156 Billie Hays.RESULTS READ BACK BY SAME . PROTIME 37.0 s (Abnormal) Range: 11.7-14.9 88-Oso-027332:26 Basic Metabolic Profile (BMP) Comments: Send Results To: Gerry Swartz for Laboratory Test CKD, hypokalemiaWKettering Health Troy [address]hal[address] [place], [place], [address] GAP 8 (Normal) Range: 5-15 CO2 28.0 [...] A.D.A. criteria.Please note revised GLUCOSE reference range zujjsnyyq19/02/2018. 72-Kwx-098822:25 CBC W/Diff, Automated Comments: Reason for Laboratory Test .[facility] [address] [place], [place], [address] Absolute Lymph 1.02 {X10_3/ul} (Normal) Range: 0.83-4.51 [...] :25 Ferritin Comments: Reason for Laboratory Test .[facility] [address] [place], [place], [address] FERRITIN 109 ng/mL (Normal) Range: 8-252 79-Ycb-240055:25 Iron+Iron Binding Capacity Comments: Reason for Laboratory Test .[facility] [address] [place], [address] IRON SATURATION 26.7 % (Normal) Range: 15.0-55.0 IRON 92 ug/dL (Normal) Range: 50-170 TIBC 345 ug/dL (Normal) Range: 250-450 4-Mnv-575369:19 HgA1C , Office (74218) HgA1C , Office 5.1 % (Normal) Range: 4.6 - 7.1 5-Kzo-842882:18 Blood Glucose , Office (68136) Blood Glucose , Office 124 (Normal) 21-Jan-20180:00 Fluid/Washing See Note (Normal) Comments: [facility] [address] [place], [place], [address] Comments: Patient: GABBI ROLLE : 1945 (72/F) Acct Num: [id number] Phys: Leslie BALDWIN,Carlos Unit Num: [id number] Loc: US Specimen: [id number] Received: 01/24/18846 Spec Type: Flu id TISSUES TISSUES: THORACIC FLUID CYTOLOGY GROSS Received is 695 ml of laquita cloudy fluid labeled with the patient's name and DOBand designated per the requisition as t horacentesis. Submitted for cytology preparation including cell block. / 01/23/18 TC:5 CPT: 38877, 79774 CYTOLOGY STUDY Slides are reviewed. The specimen [...] Comments: RESULT(S) PREVIOUSLY REPORTED ON MANUAL REQUISITION DURINGDOWNTIME.[facility] [address] [place], [place], [address] PTT 42.2 s (Abnormal) Range: 24.1-36.2 20-Jan-20189:30 Prothrombin Time w/INR Comments: RESULT(S) PREVIOUSLY REPORTED ON MANUAL REQUISITION DURINGDOWNTIME.[facility] [address] [place], [place], [address] INR 1.3 (Normal) PROTIME 16.2 s (Abnormal) Range: 11.7-14.9 01-Isp-289504:55 Basic Metabolic Profile (BMP) Comments: [facility] [address] [place], [address] GAP 9 (Normal) Range: 5-15 [...] criteria.Please note revised GLUCOSE reference range /02/2018. 66-Myi-206014:55 BNP,B-Type NATRIURETIC PEPTIDE Comments: [facility] [address] [place], [place], [address] B-TYPE MARY JO PEP 208.1 pg/mL (Abnormal) Range: 0-100 60-Jaj-880051:55 CBC W/Diff, Automated Comments: [facility] [address] [place], [address] Absolute Lymph 0.56 {X10_3/ul} (Abnormal) [...] Range: 4.4-11.0 :44 Protime w/INR Fingerstick Comments: [facility] LaboratoryPoint of [address]if[address] [place] [address] INR ISTAT 1.20 (Normal) Comments: Critical Value > 3.5 PROTIME ISTAT 13.7 {SEC} (Normal) Range: 11.9-14.4 Comments: Reference Range 11.9 - 14.4 :43 Bedside Glucose Comments: [facility] LaboratoryPoint of [address] [place] [address] BEDSIDE GLU 147 mg/dL (Abnormal) Range: 70-110 Comments: MANAGEMENT OF PATIENT CARE PER NURSING PROTOCOL 60-Czb-723426:01 CBC W/Diff, Automated Comments: Reason for Laboratory Test .[facility] [address] [place], [address] Absolute Lymph 0.80 {X10_3/ul} (Abnormal) Range: [...] 4.2-5.4 WBC 7.1 K/mm3 (Normal) Range: 4.4-11.0 71-Ipj-562175:01 Comprehensive Metabolic Profil Comments: Reason for Laboratory Test .[facility] [address] [place], [place], [address] GAP 6 (Normal) Range: 5-15 CO2 25.0 [...] A.D.A. criteria.Please note revised GLUCOSE reference range ybalwcpzn51/02/2018. 36-Faf-982693:01 Erythropoietin Comments: Reason for Laboratory Test .[facility] (refer to report for specific site)refer to report for address and phone number [facility] [id number] 105.6 m[iU]/mL (Abnormal) Range: 2.6-18.5 Comments: [email or web address] DxI 800 Immunoassay SystemPerformed at: - Lab[address] [id number] Director: Heron Almonte PhD, Phone: [phone] 24-Uro-373106:01 Ferritin Comments: Reason for Laboratory Test .[facility] [address] [place], [place], [address] FERRITIN 69 ng/mL (Normal) Range: 8-252 46-Gfm-873728:01 Iron+Iron Binding Capacity Comments: Reason for Laboratory Test .[facility] [address] [place], [place], [address] IRON SATURATION 19.7 % (Normal) Range: 15.0-55.0 IRON 77 ug/dL (Normal) Range: 50-170 TIBC 391 ug/dL (Normal) Range: 250-450 69-Tdr-644248:06 Metabolic Panel, Comprehensive Comments: send to Dr. Mccurdy; PATIENT NOT FASTINGPERFORMED BY: [facility] Oedmbz7696 [facility] [id number] ([address]) ALT (SGPT) 18 [iU]/L (Normal) Range: 0-32 [...] 8-27 Glucose 114 mg/dL (Abnormal) Range: 65-99 45-Ong-477399:06 TSH (THYROID STIMULATING Comments: send results to Dr. Bowers; PATIENT NOT FASTINGPERFORMED BY: [facility] Yjydyd1298 [facility] [id number] HORMONE) (37397) TSH 3.420 {uIU/mL} (Normal) Range: 0.450-4.500 07-Apg-569937:09 CBC W/Diff, Automated Comments: Reason for Laboratory Test .[facility] [address] [place], [place], [address] SMEAR COMMENT (Normal) Comments: SLIDE SCANNED - [...] 4.2-5.4 WBC 6.9 K/mm3 (Normal) Range: 4.4-11.0 34-Akz-319898:09 Erythropoietin Comments: Reason for Laboratory Test .[facility] (refer to report for specific site)refer to report for address and phone number ERYTHROP [phone] 51.6 m[iU]/mL (Abnormal) Range: 2.6-18.5 Comments: [employer] DxI 800 Immunoassay SystemPerformed at: [facility] [email or web address] [id number] Director: Heron Almonte PhD, Phone: [phone] 30-Rwd-426115:09 Ferritin Comments: Reason for Laboratory Test .[facility] [address] [place], [place], [address] FERRITIN 43 ng/mL (Normal) Range: 8-252 31-Jij-029739:09 Iron+Iron Binding Capacity Comments: Reason for Laboratory Test .[facility] [address] [place], [place], [address] IRON SATURATION 10.4 % (Abnormal) Range: 15.0-55.0 IRON 56 ug/dL (Normal) Range: 50-170 Comments: Slight Hemolysis, Result may be falsely increased. TIBC 536 ug/dL (Abnormal) Range: 250-450 89-Vto-978716:09 Retic Panel Comments: Reason for Laboratory Test .[facility] [address] [place], [place], [address] IPF 3.8 % (Normal) Range: 1.0-7.9 Comments: [...] 3.00-15.90 RETIC 5.76 % (Abnormal) Range: 0.5-1.5 85-Fog-530081:55 Basic Metabolic Profile (BMP) Comments: 'TROP' Serial specimen #1, #2, #3, or #4: 1WKet[facility] [address]kinunw[address] [place], [place], [address] GAP 9 (Normal) Range: 5-15 CO2 23.0 [...] A.D.A. criteria.Please note revised GLUCOSE reference range tpljosywl44/02/2018. 15-Tyi-620224:55 BNP,B-Type NATRIURETIC PEPTIDE Comments: [facility] [address] [place], [address] B-TYPE MARY JO PEP 217.5 pg/mL (Abnormal) Range: 0-100 38-Rxr-023339:55 CBC W/Diff, Automated Comments: [facility] [address]had[address] [place], [address] MACROCYTE 1+ (Normal) POLYCHROMASIA 1+ [...] Range: 4.4-11.0 :55 Prothrombin Time w/INR Comments: [facility] [address] [place], [place], [address] INR 2.4 (Normal) PROTIME 26.4 s (Abnormal) Range: 11.7-14.9 83-Dcg-642071:55 Troponin-I Comments: 'TROP' Serial specimen #1, #2, #3, or #4: [address] [place] [address] [address] [place], [place], [address] TROPONIN-I < 0.02 ng/mL (Normal) Comments: TROPONIN-I EXPECTED VALUES <0.05 NEGATIVE 0.06 - 0.59 AT RISK OF AL > OR = 0.60 SUGGEST AL 4-Awe-082688:40 Basic Metabolic Profile (BMP) Comments: 'TROP' Serial specimen #1, #2, #3, or #4: [address] [place] [address] [place], [place], [address] GAP 7 (Normal) Range: 5-15 CO2 24.0 [...] A.D.A. criteria.Please note revised GLUCOSE reference range sjfdaujei95/02/2018. 3-Ger-109677:40 BNP,B-Type NATRIURETIC PEPTIDE Comments: [facility] [address] [place], [place], [address] B-TYPE MARY JO PEP 226.6 pg/mL (Abnormal) Range: 0-100 5-Yqh-372898:40 CBC W/Diff, Automated Comments: [facility] [address] [place], [place], [address] SMEAR COMMENT SCANNED (Normal) Comments: 1+ ANISOCYTOSIS [...] Range: 4.4-11.0 :40 Prothrombin Time w/INR Comments: [address] [place], [address] INR 2.8 (Normal) PROTIME 29.7 s (Abnormal) Range: 11.7-14.9 2-Ukk-215412:40 Troponin-I Comments: 'TROP' Serial specimen #1, #2, #3, or #4: [address] [place], [address] TROPONIN-I < 0.02 ng/mL (Normal) Comments: TROPONIN-I EXPECTED VALUES <0.05 NEGATIVE 0.06 - 0.59 AT RISK OF AL > OR = 0.60 SUGGEST AL 40-Xga-71549:53 CBC W/Diff, Automated Comments: CMP,LIPID,FERRITIN,IRON,TIBC FOR CIESAReason for Laboratory Test [facility]IAFort [facility] [address]sejhj[address] [place], [place], [address] HYPOCHROMASIA 2+ (Normal) POLYCHROMASIA RARE (Normal) ANISO [...] Comments: CMP,LIPID,FERRITIN,IRON,TIBC FOR Christianoason for Laboratory Test ANEMIAWKettering Health [facility] [address]uoy[address] [place], [address] Profil GAP 8 (Normal) Range: 5-15 CO2 24.0 mmol/L (Normal) Range: 21.0-32.0 CL 107 mmol/L (Normal) Range: 98-107 K 4.3 mmol/L (Normal) Range: 3.5-5.1 NA 139 mmol/L (Normal) Range: 136-145 T BILI 0.50 mg/dL (Normal) Range: 0.20-1.00 ALT 17 U/L (Normal) Range: 13-56 Comments: Please note revised ALT reference range ighbybkus68/28/2018. ALK P 76 U/L (Normal) Range: 45-117 [...] A.D.A. criteria.Please note revised GLUCOSE reference range pbvkahvgm41/02/2018. 91-Jtf-90180:53 Ferritin Comments: CMP,LIPID,FERRITIN,IRON,TIBC FOR CIESAReason for Laboratory Test [facility] [address] [place], [address] FERRITIN 32 ng/mL (Normal) Range: 8-252 :53 Iron+Iron Binding Comments: CMP,LIPID,FERRITIN,IRON,TIBC FOR CIESAReason for Laboratory Test [facility] [address] [place], [address] Capacity IRON SATURATION 21.2 % (Normal) Range: 15.0-55.0 IRON 95 ug/dL (Normal) Range: 50-170 TIBC 449 ug/dL (Normal) Range: 250-450 :53 Lipid Profile Comments: CMP,LIPID,FERRITIN,IRON,TIBC FOR [facility] CAROLINAAReason for Laboratory Test [facility] [address] [place], [address] VLDL 24 mg/dL (Normal) Range: 5-40 [...] mg/dL High Risk :54 Culture, Urine Comments: [facility] [address] [place], [address] CUUR See Note (Normal) Comments: Urine CultureBelow infection level. ORGANISM 1: Mixed Gram Positive OrganismsColony Count 1000-10,000 9-Xua-548347:54 Urinalysis, Complete Comments: How was Urine Obtained? CLEAN [facility] [address] [place], [address] MUCUS, URINE 0 SEEN {/hpf} [...] COLOR Yellow (Normal) :37 HgA1C , Office (51310) HgA1C , Office 5.5 % (Normal) Range: 4.6 - 7.1 :35 Blood Glucose , Office (21495) Blood Glucose , Office 170 (Normal) 89-Jwi-05595:12 Influenza A&B Viral Comments: PATIENT NOT FASTINGPERFORMED BY: [facility] Zpmkig5479 [facility] [id number] Information: SRC:NL Culture (17656) Viral Culture,Rapid,Influenza FLUABN (Normal) Comments: Negative:No Influenza A or B detected. 90-Aai-561060:40 Rapid Flu (84312 x 2) Influenza A Ag neg (Normal) 98-Oic-994963:16 CBC W/Diff, Automated Comments: Reason for Laboratory Test [facility] [id number] [place], [address] ; Dr Khan Absolute Lymph [...] 4.2-5.4 WBC 9.6 K/mm3 (Normal) Range: 4.4-11.0 76-Twr-734509:16 Ferritin Comments: Reason for Laboratory Test [facility] [id number] [place], [address] FERRITIN 33 ng/mL (Normal) Range: 8-252 74-Biu-098922:16 Iron+Iron Binding Capacity Comments: Reason for Laboratory Test [facility] [id number] [place], [address] IRON SATURATION 12.8 % (Abnormal) Range: 15.0-55.0 IRON 56 ug/dL (Normal) Range: 50-170 TIBC 436 ug/dL (Normal) Range: 250-450 80-Lka-012183:16 Retic Panel Comments: Reason for Laboratory Test [facility] [id number] [place], [address] IPF 3.1 % (Normal) Range: [...] (Abnormal) Range: 0.5-1.5 :16 HgA1C , Office (85253) Comments: 5.6 HgA1C , Office 5.6 % (Normal) Range: 4.6 - 7.1 :16 Blood Glucose , Office (43430) Blood Glucose , Office 145 (Normal) :22 PT (PROTHROMBIN TIME) (17809) Comments: Standing order; PATIENT NOT FASTINGPERFORMED BY: [id number] [id number] Prothrombin Time 11.5 {sec} (Normal) Range: 9.1-12.0 INR 1.1 (Normal) Range: 0.8-1.2 Comments: Reference interval is for non-anticoagulated patients. . Suggested INR therapeutic range for Vitamin K anta gonist therapy: Standard Dose (moderate intensity therapeutic range): 2.0 - 3.0 Higher intensity therapeutic range 2.5 - 3.5 :25 PT (PROTHROMBIN TIME) (91796) Comments: Standing order; PATIENT NOT FASTINGPERFORMED BY: [employer] Baplvl6947 [facility] [id number] Prothrombin Time 17.1 {sec} (Abnormal) Range: 9.1-12.0 INR 1.7 (Abnormal) Range: 0.8-1.2 Comments: Reference interval is for non-anticoagulated patients. . Suggested INR therapeutic range for Vitamin K anta gonist therapy: Standard Dose (moderate intensity therapeutic range): 2.0 - 3.0 Higher intensity therapeutic range 2.5 - 3.5 :55 Blood Gases by [facility] Comments: [place] [address] [place] [address] SO2 ISTAT 95 % (Normal) Range: 95-99 TOTAL CO2 ISTAT 24 mmol/L (Normal) BE ISTAT -2 mmol/L (Normal) HCO3 ISTAT 23.1 mmol/L (Normal) Range: 22-26 PO2 I-STAT 77 {mmHG} (Normal) Range: 75-100 pCO2 - ISTAT 37.5 {mmHg} (Normal) Range: 35-45 pH - I-STAT 7.40 (Normal) Range: 7.35-7.45 BLD GAS TYPE ART (Normal) :35 Venous Blood Gas Comments: [place] [address] [place] [address] ISTAT 25 [...] ANTONIO (Normal) :32 Venous Blood Gas Comments: [place] [address] [place] [address] ISTAT 25 [...] 7.32-7.42 BLD GAS TYPE JUAN ANTONIO (Normal) 2-Aer-968835:01 Basic Metabolic Profile (BMP) Comments: Order Date: 03/26/17Order Info: [id number] - *BMPComments: Reason:[facility] [address] [place], [place], [id number] GAP 6 (Normal) Range: 5-15 CO2 27.0 [...] HOMEOSTASIS per A.D.A. criteria.; ADDENDA: another doc 0-Hnq-933700:01 CBC-Complete Blood Cnt No Diff Comments: Order Date: 03/26/17Order Info: [id number] - *CBC without DiffComments: Reason:[facility] [address] [place], [place], [id number] ; another doc MPV 12.4 fL (Abnormal) [...] 7.6 K/mm3 (Normal) Range: 4.4-11.0 :31 Iron (87511) Comments: PATIENT NOT FASTINGPERFORMED BY: [employer] [facility] Lkuezq8332 [facility] [id number] Iron, Serum 70 ug/dL (Normal) Range: 27-139 :31 Ferritin (14985) Comments: PATIENT NOT FASTINGPERFORMED BY: [employer] [facility] Lvnubt3556 [facility] [id number] Ferritin, Serum 90 ng/mL (Normal) Range: 15-150 :31 Metabolic Panel, Comprehensive Comments: PATIENT NOT FASTINGPERFORMED BY: [employer] [facility] Trcnyl3357 [facility] [id number] (55879) ALT (SGPT) 16 [iU]/L (Normal) Range: 0-32 [...] Glucose, Serum 109 mg/dL (Abnormal) Range: 65-99 07-Vzp-85455:31 CBC WITH MANUAL DIFF (00305) Comments: PATIENT NOT FASTINGPERFORMED BY: [facility] Defhhj7127 [facility] [id number] Immature Grans (Abs) 0.0 {x10E3/uL} Range: 0.0-0.1 [...] sent toHeron Hobbs M.D..PATIENT NOT FASTINGPERFORMED BY: [facility]6370 [facility] [id number] 12:16 Range: 15-150 95-Fjg-571783:16 CBC, PLATELETS & AUT DIFF Comments: A courtesy copy of this report has been sent toHeron Hobbs M.D..PATIENT NOT FASTINGPERFORMED BY: [facility]It.comS[facility] Xunbqz4949 [facility] [id number] (24348) Immature Grans (Abs) 0.0 {x10E3/uL} (Normal) Range: [...] 3.77-5.28 WBC 9.1 {x10E3/uL} (Normal) Range: 3.4-10.8 85-Akv-992367:16 IRON & TOTAL IRON BINDING Comments: A courtesy copy of this report has been sent toHeron Hobbs M.D..PATIENT NOT FASTINGPERFORMED BY: [facility] Vzcnoj9574 [facility] [id number] CAPACITY (42937) Iron Saturation 10 % (Abnormal) Range: 15-55 Iron, Serum 40 ug/dL (Normal) Range: 27-139 UIBC 358 ug/dL (Normal) Range: 118-369 Iron Bind.Cap.(TIBC) 398 ug/dL (Normal) Range: 250-450 68-Jon-006587:43 Culture, Urine Comments: [facility] [address] [place], [address] CUUR See Note (Normal) Comments: [...] $ <=20 S(NF) indicates non-formulary drug at [facility]. Approval by Infectious Disease Specialist required before non- formulary drugs may be ordered and/or dispensed. 9-Yyj-660023:00 Basic Metabolic Profile (BMP) Comments: [facility] [address] [place], [place], [address] GAP 10 (Normal) Range: 5-15 CO2 23.0 [...] <126 mg/dLsuggests IMPAIRED HOMEOSTASIS per A.D.A. criteria. 6-Ivq-676284:00 CBC W/Diff, Automated Comments: [facility] [address] [place], [address] ; ER Absolute Lymph 1.09 {X10_3/ul} (Normal) [...] 4.2-5.4 WBC 6.5 K/mm3 (Normal) Range: 4.4-11.0 7-Waj-135494:00 Prothrombin Time w/INR Comments: [facility] [address] [place], [place], [id number] INR 1.2 (Normal) PROTIME 14.6 s (Normal) Range: 11.7-14.9 2-Lma-416335:00 Microscopic Examination Comments: PATIENT WAS FASTINGPERFORMED BY: LabCoPasc[facility] Medical CenterEekmdi9610 [facility] [id number] Bacteria Few (Normal) Mucus Threads Present (Normal) Epithelial Cells (non renal) 0-10 {/hpf} (Normal) Range: 0 - 10 RBC 0-2 {/hpf} (Normal) Range: 0 - 2 WBC 0-5 {/hpf} (Normal) Range: 0 - 5 18-Rra-59254:40 Urinalysis, Complete Comments: Order Date: 12/09/16Order Date: 12/09/16How was Urine Obtained? [facility] [address] [place], [place], [phone] MUCUS, URINE 0 SEEN {/hpf} (Normal) BACTERIA [...] (Normal) CLARITY Cloudy (Normal) COLOR Yellow (Normal) 27-Yll-55622:00 Prothrombin Time w/INR Comments: REDRAW. PREVIOUS SPECIMEN REJECTED DUE TOQNS. 12/09/1647 Jessica Allen.REDRAW. PREVIOUS SPECIMEN REJECTED DUE TOQNS. 12/09/1647 Jessica Allen.[facility] [address] [place], [address](104) INR 1.6 (Normal) PROTIME 18.1 s (Abnormal) Range: 11.7-14.9 16-Icg-69676:10 Basic Metabolic Profile (BMP) Comments: 'TROP' Serial specimen #1, #2, #3, or #4: [address] [place] [address] [place], [place], [address] GAP 11 (Normal) Range: 5-15 CO2 23.0 [...] A.D.A. criteria. :10 BNP,B-Type NATRIURETIC PEPTIDE Comments: [facility] [address] [place], [place], [address] B-TYPE MARY JO PEP 243.7 pg/mL (Abnormal) Range: 0-100 :10 CBC W/Diff, Automated Comments: [facility] [address] [place], [place], [address] SMEAR COMMENT SCANNED (Normal) Comments: LYMPHOPENIA NOTED [...] Serial specimen #1, #2, #3, or #4: [facility] [address]crh[address] [place], [place], [address] TROPONIN-I 0.43 ng/mL (Abnormal) Comments: TROPONIN-I EXPECTED VALUES <0.05 NEGATIVE 0.06 - 0.59 AT RISK OF AL > OR = 0.60 SUGGEST AL :02 Lactic Acid Comments: [facility] [address] [place], [place], [address] LACTIC ACID 2.2 mmol/L (Abnormal) Range: 0.4-2.0 56-Fmf-641859:45 Rapid Flu (76220 x 2) Comments: Negative Influenza A Ag neg a/b (Normal) 8-Qnu-051608:00 MICROALBUMIN: CREATININE RATIO Comments: PATIENT WAS FASTINGPERFORMED BY: Masher70 [facility] [id number] (57821) AND (07036) Microalb/Creat Ratio 29.7 {mg/g_creat} (Normal) Range: 0.0-30.0 Microalbumin, Urine 15.2 ug/mL (Normal) Creatinine, Urine 51.2 mg/dL (Normal) :00 URINALYSIS (84319) Comments: PATIENT WAS FASTINGPERFORMED BY: [facility]6370 [facility] [id number] Microscopic Examination See below: (Normal) Comments: Microscopic was indicated and was performed. Nitrite, Urine Negative (Normal) Urobilinogen,Semi-Qn 0.2 mg/dL (Normal) Range: 0.2-1.0 Bilirubin Negative (Normal) Occult Blood Trace (Abnormal) Ketones Negative (Normal) Glucose Negative (Normal) Protein Negative (Normal) WBC Esterase 2+ (Abnormal) Appearance Clear (Normal) Urine-Color Yellow (Normal) pH 6.0 (Normal) Range: 5.0-7.5 Specific [place] 1.010 (Normal) Range: 1.005-1.030 :00 TSH (06140) Comments: PATIENT WAS FASTINGPERFORMED BY: [facility]6370 [facility] [id number] TSH 3.850 {uIU/mL} (Normal) Range: 0.450-4.500 7-Kju-679838:00 CBC, Platelets & Auto Diff Comments: PATIENT WAS FASTINGPERFORMED BY: [facility]6370 [facility] [id number] (96640) Immature Grans (Abs) 0.0 {x10E3/uL} (Normal) Range: [...] 3.77-5.28 WBC 8.8 {x10E3/uL} (Normal) Range: 3.4-10.8 7-Tja-228463:00 Metabolic Panel, Comprehensive Comments: PATIENT WAS FASTINGPERFORMED BY: [facility]6370 [facility] [id number] (77851) ALT (SGPT) 24 [iU]/L (Normal) Range: 0-32 [...] Glucose, Serum 106 mg/dL (Abnormal) Range: 65-99 95-Hag-52160:10 CBC W/Diff, Automated Comments: [facility] [address] [place], [place], [address] Absolute Lymph 1.29 {X10_3/ul} (Normal) Range: 0.83-4.51 [...] (Normal) Range: 4.4-11.0 :08 HgA1C , Office (05434) HgA1C , Office 5.5 % (Normal) Range: 4.6 - 7.1 :08 Blood Glucose , Office (68925) Blood Glucose , Office 155 (Normal) 5-Hmr-916453:25 BNP,B-Type NATRIURETIC PEPTIDE Comments: [facility] [address] [place], [place], [address] ; another doc B-TYPE MARY JO PEP 147.4 pg/mL (Abnormal) Range: 0-100 :18 HgA1C , Office (94485) HgA1C , Office 6.0 % (Normal) Range: 4.6 - 7.1 :18 Blood Glucose , Office (21515) Blood Glucose , Office 109 (Normal) :21 HgA1C , Office (14091) HgA1C , Office 6.1 % (Normal) Range: 4.6 - 7.1 9-Aug-43225:21 Blood Glucose , Office (16474) Blood Glucose , Office 117 (Normal) 5-Vbo-453072:21 METABOLIC PANEL, Comments: PATIENT NOT FASTINGPERFORMED BY: [employer] MySupportAssistant [facility] [id number] Information: [id number] COMPREHENSIVE (00299) ALT (SGPT) 15 [iU]/L (Normal) Range: 0-32 [...] Glucose, Serum 92 mg/dL (Normal) Range: 65-99 0-Boq-409120:21 Vitamin D Hydroxy (97425) Comments: PATIENT NOT FASTINGPERFORMED BY: [employer] AssistPascack Valley Medical CenterJaxkdl5080 [facility] [id number] Vitamin D, 25-Hydroxy 59.7 ng/mL (Normal) Range: 30.0-100.0 Comments: Vitamin D deficiency has been defined by the [place] of[place]icine and an Endocrine Society practice guideline as alevel of serum 25-OH vitamin D less than 20 ng/mL (1,2).The Endocrine Society went on to further define vitamin Dinsufficiency as a level between 21 and 29 ng/mL (2).1. IOM ([place] of Medicine). 2010. Dietary reference intakes for calcium and D. [place]: The National Academies Press.2. [place] MF, James MCGOWAN, Dolores MARTINEZ, et al. Evaluation, treatment, and prevention of vitamin D deficiency: an Endocrine Society clinical practice guideline. JCEM. 2010; 96(7):1911-30. -:06 HgA1C , Office (10457) HgA1C , Office 6.0 % (Normal) Range: 4.6 - 7.1 :15 HgA1C , Office (29021) HgA1C , Office 6.4 % (Normal) Range: 4.6 - 7.1 :31 HgA1C , Office (02867) HgA1C , Office 6.0 % (Normal) Range: 4.6 - 7.1 :04 HgA1C , Office (02059) HgA1C , Office 6.0 % (Normal) Range: 4.6 - 7.1 :09 HgA1C , Office (70459) HgA1C , Office 6.0 % (Normal) Range: 4.6 - 7.1 :32 HgA1C , Office (97160) HgA1C , Office 6.2 % (Normal) Range: 4.6 - 7.1 :24 HgA1C , Office (00242) HgA1C , Office 6.2 % (Normal) Range: 4.6 - 7.1 :59 PT (Prothrobim Time) Comments: PATIENT NOT FASTINGPERFORMED BY: [facility] Vpzacy3441 [facility] [id number] Information: [id number] (14910) Prothrombin Time 25.2 {sec} (Abnormal) Range: 9.1-12.0 INR 2.4 (Abnormal) Range: 0.8-1.2 Comments: Reference interval is for non-anticoagulated patients. . Suggested INR therapeutic range for Vitamin K anta gonist therapy: Standard Dose (moderate intensity therapeutic range): 2.0 - 3.0 Higher intensity therapeutic range 2.5 - 3.5 :22 PT (Prothrobim Time) Comments: PATIENT NOT FASTINGPERFORMED BY: [place] [address] [facility] [id number] Information: [id number] (34980) Prothrombin Time 22.4 {sec} (Abnormal) Range: 9.1-12.0 INR 2.2 (Abnormal) Range: 0.8-1.2 Comments: Reference interval is for non-anticoagulated patients. . Suggested INR therapeutic range for Vitamin K anta gonist therapy: Standard Dose (moderate intensity therapeutic range): 2.0 - 3.0 Higher intensity therapeutic range 2.5 - 3.5 97-Pac-114249:39 HgA1C , Office (54087) HgA1C , Office 6.5 % (Normal) Range: 4.6 - 7.1 86-Iqb-433753:37 PT (Prothrobim Time) Comments: PATIENT NOT FASTINGPERFORMED BY: [place] [address] [facility] [id number] Information: [id number] (27310) Prothrombin Time 20.7 {sec} (Abnormal) Range: 9.1-12.0 INR 1.9 (Abnormal) Range: 0.8-1.2 Comments: Reference interval is for non-anticoagulated patients. . Suggested INR therapeutic range for Vitamin K anta gonist therapy: Standard Dose (moderate intensity therapeutic range): 2.0 - 3.0 Higher intensity therapeutic range 2.5 - 3.5 25-Aex-576500:34 BNTP (35747) Comments: PATIENT NOT FASTINGPERFORMED BY: [place] [address] [facility] [id number] B-Type Natriuretic Peptide 156.2 pg/mL (Abnormal) Range: 0.0-100.0 63-Onw-875461:34 PT (Prothrobim Time) (70979) Comments: PATIENT NOT FASTINGPERFORMED BY: [facility]6370 [facility] [id number] Prothrombin Time 13.1 {sec} (Abnormal) Range: 9.1-12.0 INR 1.3 (Abnormal) Range: 0.8-1.2 Comments: Reference interval is for non-anticoagulated patients. . Suggested INR therapeutic range for Vitamin K anta gonist therapy: Standard Dose (moderate intensity therapeutic range): 2.0 - 3.0 Higher intensity therapeutic range 2.5 - 3.5 50-Qpp-808169:34 CULTURE, SPUTUM (76000) Comments: PATIENT NOT FASTINGPERFORMED BY: [facility]6370 [facility] [id number] Lower Respiratory Culture Final report (Normal) Result 1 RRF (Normal) Comments: Routine respiratory anisa 93-Sql-610336:20 PT (Prothrobim Time) Comments: PATIENT NOT FASTINGPERFORMED BY: [facility]6370 [facility] [id number] Information: [id number] (62228) Prothrombin Time 21.0 {sec} (Abnormal) Range: 9.1-12.0 INR 2.0 (Abnormal) Range: 0.8-1.2 Comments: Reference interval is for non-anticoagulated patients. . Suggested INR therapeutic range for Vitamin K anta gonist therapy: Standard Dose (moderate intensity therapeutic range): 2.0 - 3.0 Higher intensity therapeutic range 2.5 - 3.5 21-Zhc-116029:11 PT (Prothrobim Time) Comments: PATIENT NOT FASTINGPERFORMED BY: [facility]6370 [facility] [id number] Information: [id number] (45416) Prothrombin Time 15.3 {sec} (Abnormal) Range: 9.1-12.0 INR 1.5 (Abnormal) Range: 0.8-1.2 Comments: Reference interval is for non-anticoagulated patients. . Suggested INR therapeutic range for Vitamin K anta gonist therapy: Standard Dose (moderate intensity therapeutic range): 2.0 - 3.0 Higher intensity therapeutic range 2.5 - 3.5 :45 HgA1C , Office (27419) HgA1C , Office 6.5 % (Normal) Range: 4.6 - 7.1 :18 PT (Prothrobim Time) Comments: PATIENT NOT FASTINGPERFORMED BY: [facility]6370 [facility] [id number] Information: [id number] (83014) Prothrombin Time 20.0 {sec} (Abnormal) Range: 9.1-12.0 INR 1.9 (Abnormal) Range: 0.8-1.2 Comments: Reference interval is for non-anticoagulated patients. . Suggested INR therapeutic range for Vitamin K anta gonist therapy: Standard Dose (moderate intensity therapeutic range): 2.0 - 3.0 Higher intensity therapeutic range 2.5 - 3.5 :24 HgA1C , Office (01468) HgA1C , Office 6.1 % (Normal) Range: 4.6 - 7.1 :53 HgA1C , Office (84656) HgA1C , Office 6.2 % (Normal) Range: 4.6 - 7.1 :05 CBC WITH MANUAL DIFF Comments: today; PATIENT NOT FASTINGPERFORMED BY: [place] [address] [facility] [id number] Information: [id number] (35299) Hematology Comments: Note: (Normal) Comments: Verified by [...] 3.77-5.28 WBC 9.2 {x10E3/uL} (Normal) Range: 4.0-10.5 48-Btu-908495:30 HgA1C , Office (80543) HgA1C , Office 6.1 % (Normal) Range: 4.6 - 7.1 36-Owa-512131:33 PT (Prothrobim Time) Comments: PATIENT NOT FASTINGPERFORMED BY: [place] [address] [facility] [id number] Information: [id number] (36190) Prothrombin Time 17.9 {sec} (Abnormal) Range: 9.1-12.0 INR 1.7 (Abnormal) Range: 0.8-1.2 Comments: Reference interval is for non-anticoagulated patients. . Suggested INR therapeutic range for Vitamin K anta gonist therapy: Standard Dose (moderate intensity therapeutic range): 2.0 - 3.0 Higher intensity therapeutic range 2.5 - 3.5 92-Jgw-288842:27 PT (Prothrobim Time) Comments: PATIENT NOT FASTINGPERFORMED BY: [facility]6370 [facility] [id number] Information: [id number] (86197) Prothrombin Time 26.3 {sec} (Abnormal) Range: 9.1-12.0 INR 2.6 (Abnormal) Range: 0.8-1.2 Comments: Reference interval is for non-anticoagulated patients. . Suggested INR therapeutic range for Vitamin K anta gonist therapy: Standard Dose (moderate intensity therapeutic range): 2.0 - 3.0 Higher intensity therapeutic range 2.5 - 3.5 4-Ije-661994:01 BILAT SCRN DIGITAL & CAD Radiology Report [...] delay biopsy of a clinically suspiciousa bnormality. Signed:rIvin Cho M.D.July 25, 2012 at 11:23:11 AM [id number] Signed GP/GP If you are the referring physician and would like to consult with theradiologist who provided this interpretation, please contact Clinton Ignacio at [phone]. If this radiologist is unavailable, youwill be directed to another radiologist to assist. If you are a patient with a question regarding this report, pleasecontactyour referring physician directly. Professional Interpretation Provided By: [employer], Phone , These documents contain leg ally [...] 07/25/12 1128 Sign by: Irvin Cho MD 20-Gga-226011:44 HgA1C , Office (61366) HgA1C , Office 6.6 % (Normal) Range: 4.6 - 7.1 :44 Blood Glucose , Office (18054) Blood Glucose , Office 101 (Normal) :02 PT (Prothrobim Time) Comments: standing order; PATIENT NOT FASTINGPERFORMED BY: [facility].com[facility]6370 [facility] [id number] Information: [id number] (53515) Prothrombin Time 20.6 {sec} (Abnormal) Range: 9.1-12.0 INR 2.0 (Abnormal) Range: 0.8-1.2 Comments: Reference interval is for non-anticoagulated patients. . Suggested INR therapeutic range for Vitamin K anta gonist therapy: Standard Dose (moderate intensity therapeutic range): 2.0 - 3.0 Higher intensity therapeutic range 2.5 - 3.5 20-Tvv-376105:09 HgA1C , Office (79720) HgA1C , Office 6.1 % (Normal) Range: 4.6 - 7.1 73-Mlm-65300:00 Prothrombin Time (PT) Comments: PATIENT NOT FASTINGPERFORMED BY: [facility]6370 [facility] [id number] Prothrombin Time 21.7 {sec} (Abnormal) Range: 9.1-12.0 INR 2.1 (Abnormal) Range: 0.8-1.2 Comments: Reference interval is for non-anticoagulated patients. . Suggested INR therapeutic range for Vitamin K anta gonist therapy: Standard Dose (moderate intensity therapeutic range): 2.0 - 3.0 Higher intensity therapeutic range 2.5 - 3.5 :42 PT (PROTHROMBIN TIME) Comments: PATIENT NOT FASTINGPERFORMED BY: [facility]6370 [facility] [id number] Information: [id number] (93808) Prothrombin Time 18.7 {sec} (Abnormal) Range: 9.1-12.0 INR 1.8 (Abnormal) Range: 0.8-1.2 Comments: Reference interval is for non-anticoagulated patients. . Suggested INR therapeutic range for Vitamin K anta gonist therapy: Standard Dose (moderate intensity therapeutic range): 2.0 - 3.0 Higher intensity therapeutic range 2.5 - 3.5 50-Ohc-41454:06 PT (PROTHROMBIN TIME) Comments: PATIENT NOT FASTINGPERFORMED BY: [place] [address] [facility] [id number] Information: [id number] (47641) Prothrombin Time 21.7 {sec} (Abnormal) Range: 9.1-12.0 INR 2.0 (Abnormal) Range: 0.8-1.2 Comments: Reference interval is for non-anticoagulated patients. . Suggested INR therapeutic range for Vitamin K anta gonist therapy: Standard Dose (moderate intensity therapeutic range): 2.0 - 3.0 Higher intensity therapeutic range 2.5 - 3.5 26-Mhr-355276:01 ERYTHROPOIETIN (40138) Comments: PATIENT NOT FASTINGPERFORMED BY: [facility]6370 [facility] [id number] Erythropoietin 38.7 m[iU]/mL (Abnormal) Range: 4.2-27.8 54-Dse-656883:01 Vitamin D Hydroxy (39070) Comments: PATIENT NOT FASTINGPERFORMED BY: [place] [address] [facility] [id number] Vitamin D, 25-Hydroxy 52.5 ng/mL (Normal) Range: 30.0-100.0 Comments: Vitamin D deficiency has been defined by the [place] of[place]icine and an Endocrine Society practice guideline as alevel of serum 25-OH vitamin D less than 20 ng/mL (1,2).The Endocrine Society went on to further define vitamin Dinsufficiency as a level between 21 and 29 ng/mL (2).1. IOM ([place] of Medicine). 2010. Dietary reference intakes for calcium and D. [place]: The National Academies Press.2. [place] MF, James MCGOWAN, Dolores MARTINEZ, et al. Evaluation, treatment, and prevention of vitamin D deficiency: an Endocrine Society clinical practice guideline. JCEM. 2010; 96(7):1911-30. 45-Wlr-065149:01 VITAMIN B-12 (CYANOCOBALAMIN) Comments: PATIENT NOT FASTINGPERFORMED BY: Masher70 [facility] [id number] (77004) Vitamin B12 779 pg/mL (Normal) Range: 211-946 14-Dbr-211701:01 RETICULOCYTE COUNT MANUL Comments: PATIENT NOT FASTINGPERFORMED BY: CB [place] [employer]rp Xwjoro0231 [facility] [id number] (11863) Reticulocyte Count 1.9 % (Normal) Range: 0.5-3.0 93-Hvp-097939:01 LDH (LD) (LACTATE DEHYDROGENASE) Comments: PATIENT NOT FASTINGPERFORMED BY: [employer] Pwephr1462 [facility] [id number] (46843) LDH 174 [iU]/L (Normal) Range: 0-214 76-Hpo-803041:01 IRON BINDING CAPACITY Comments: PATIENT NOT FASTINGPERFORMED BY: [employer] Ugnfim9382 [facility] [id number] Information: [id number] (TIBC) (18813) Iron Saturation 9 % (Abnormal) Range: 15-55 Iron, Serum 35 ug/dL (Normal) Range: 35-155 UIBC 355 ug/dL (Normal) Range: 150-375 Iron Bind.Cap.(TIBC) 390 ug/dL (Normal) Range: 250-450 06-Vwt-446371:01 FERRITIN (63913) Comments: PATIENT NOT FASTINGPERFORMED BY: [facility]6370 [facility] [id number] Ferritin, Serum 59 ng/mL (Normal) Range: 13-150 :47 HgA1C , Office (37954) HgA1C , Office 6.2 % (Normal) Range: 4.6 - 7.1 :48 Prothrombin Time (PT) Comments: PERFORMED BY: [place] [address] [facility] [id number] Prothrombin Time 20.1 {sec} (Abnormal) Range: 9.1-12.0 Comments: Please note reference interval change INR 1.9 (Abnormal) Range: 0.8-1.2 Comments: Reference interval is for non-anticoagulated patients. . Suggested INR therapeutic range for Vitamin K anta gonist therapy: Standard Dose (moderate intensity therapeutic range): 2.0 - 3.0 Higher intensity therapeutic range 2.5 - 3.5 :56 HgA1C , Office (67733) HgA1C , Office 6.4 % (Normal) Range: 4.6 - 7.1 :56 Blood Glucose , Office (45382) Blood Glucose , Office 111 (Normal) :48 PT (PROTHROMBIN TIME) Comments: PATIENT NOT FASTINGPERFORMED BY: [facility]6370 [facility] [id number] Information: [id number] (07363) Prothrombin Time 28.0 {sec} (Abnormal) Range: 9.1-12.0 Comments: Please note reference interval change INR 2.6 (Abnormal) Range: 0.8-1.2 Comments: Reference interval is for non-anticoagulated patients. . Suggested INR therapeutic range for Vitamin K anta gonist therapy: Standard Dose (moderate intensity therapeutic range): 2.0 - 3.0 Higher intensity therapeutic range 2.5 - 3.5 5-Pvm-053210:42 BILAT SCRN DIGITAL & CAD Radiology Report [...] 07/20/11 1305 Sign by: Irvin Cho MD 3-Gdj-276854:14 PT (PROTHROMBIN TIME) Comments: PATIENT NOT FASTINGPERFORMED BY: [facility]6370 RealRiderHighlands[facility] [id number] Information: [id number] (01950) Prothrombin Time 37.0 {sec} (Abnormal) Range: 9.1-12.0 Comments: Please note reference interval change INR 3.5 (Abnormal) Range: 0.8-1.2 Comments: Reference interval is for non-anticoagulated patients. . Suggested INR therapeutic range for Vitamin K anta gonist therapy: Standard Dose (moderate intensity therapeutic range): 2.0 - 3.0 Higher intensity therapeutic range 2.5 - 3.5 6-Pgl-584569:15 URIC ACID BLOOD (93511) Comments: PATIENT NOT FASTINGPERFORMED BY: [place] Carlife AssistPascack Valley Medical CenterVlbhno2401 Conception SpartooFormerly [facility] [id number] Information: [id number],2ND ORDER Uric Acid, Serum 5.3 mg/dL (Normal) Range: 2.5-7.1 Comments: Therapeutic target for gout patients: <6.0 40-Ydg-648430:26 FECAL OCCULT- Tubes sent home (09063) FECAL OCCULT HGB ASSAY, QUAL, 1-3 SIMULTANEOU negative (Normal) 07-Vgb-400672:37 FERRITIN (36194) Comments: PATIENT NOT FASTINGPERFORMED BY: [place] [employer]ist Eksnep[address] [place] [id number] Ferritin, Serum 109 ng/mL (Normal) Range: 13-150 88-Gtf-932352:37 IRON (59223) Comments: PATIENT NOT FASTINGPERFORMED BY: [facility]6370 [address] Spart[address] [id number] Iron, Serum 46 ug/dL (Normal) Range: 35-155 38-Ttj-194004:37 FOLIC ACID SERUM (12496) Comments: PATIENT NOT FASTINGPERFORMED BY: [employer] Ywgoso2384 [address] SpartooMission Hospital [place] [id number] Folate (Folic Acid), Serum >19.9 ng/mL (Normal) Comments: Indeterminate: 2.2 - 3.0 Deficient: <2.2 96-Zxu-466459:37 RETICULOCYTE COUNT MANUL Comments: PATIENT NOT FASTINGPERFORMED BY: [facility]6370 [address] SpartooMission Hospital [place]in [place] [id number] (03041) Reticulocyte Count 1.6 % (Normal) Range: 0.5-3.0 48-Oul-088388:37 LDH (LD) (LACTATE DEHYDROGENASE) Comments: PATIENT NOT FASTINGPERFORMED BY: [employer] Vkvxox7925 [facility] [facility] Hospitalin [place] [id number] (55986) LDH 179 [iU]/L (Normal) Range: 0-214 49-Mxa-173722:37 VITAMIN B-12 (CYANOCOBALAMIN) Comments: PATIENT NOT FASTINGPERFORMED BY: [employer] Izzkyg4075 [facility] Hospitalin [place] [id number] (91809) Vitamin B12 668 pg/mL (Normal) Range: 211-946 52-Gwr-589608:37 TSH (83117) Comments: PATIENT NOT FASTINGPERFORMED BY: LabCoPascack Valley Medical CenterKgpfdv9670 [facility] [id number] TSH 2.500 {uIU/mL} (Normal) Range: 0.450-4.500 41-Vhz-675923:37 CBC WITH MANUAL DIFF Comments: PATIENT NOT FASTINGPERFORMED BY: LabCoPascack Valley Medical CenterIcnkac5269 [facility] [id number] Information: [id number] (47746) Immature Grans (Abs) 0.0 {x10E3/uL} (Normal) Range: [...] (Normal) Range: 4.0-10.5 :37 Uric Acid Blood (02078) Comments: PATIENT NOT FASTINGPERFORMED BY: YAO [facility]6370 [facility] [id number] Uric Acid, Serum 10.0 mg/dL (Abnormal) Range: 2.5-7.1 Comments: Therapeutic target for gout patients: <6.0 :45 Blood Glucose , Office (67891) Blood Glucose , Office 101 (Normal) :45 HgA1C , Office (93371) HgA1C , Office 6.3 % (Normal) Range: 4.6 - 7.1 :25 PT (Prothrobim Time) Comments: Protime/INR Standing Order; PATIENT NOT FASTINGPERFORMED BY: YAO [place] 3502470 [facility] [id number] Information: [id number] (23935) Prothrombin Time 28.9 {sec} (Abnormal) Range: 8.7-11.5 INR 2.7 (Abnormal) Range: 0.8-1.2 Comments: Reference interval is for non-anticoagulated patients. . Suggested INR therapeutic range for Vitamin K anta gonist therapy: Standard Dose (moderate intensity therapeutic range): 2.0 - 3.0 Higher intensity therapeutic range 2.5 - 3.5 :28 PT (PROTHROMBIN TIME) Comments: PATIENT NOT FASTINGPERFORMED BY: YAO [facility]6370 [facility] [id number] Information: [id number] (53220) Prothrombin Time 24.6 {sec} (Abnormal) Range: 8.7-11.5 INR 2.3 (Abnormal) Range: 0.8-1.2 Comments: Reference interval is for non-anticoagulated patients. . Suggested INR therapeutic range for Vitamin K anta gonist therapy: Standard Dose (moderate intensity therapeutic range): 2.0 - 3.0 Higher intensity therapeutic range 2.5 - 3.5 : Potassium, Serum 5.2 mmol/L (Normal) Comments: PERFORMED BY: YAO [address] [place] [id number] Range: 3.5-5.2 8-Lrd-299168:42 Prothrombin Time (PT) Comments: PERFORMED BY: [facility]6370 [facility] [id number] Prothrombin Time 12.8 {sec} (Abnormal) Range: 8.7-11.5 INR 1.2 (Normal) Range: 0.8-1.2 Comments: Reference interval is for non-anticoagulated patients. . Suggested INR therapeutic range for Vitamin K anta gonist therapy: Standard Dose (moderate intensity therapeutic range): 2.0 - 3.0 Higher intensity therapeutic range 2.5 - 3.5 68-Qph-808089:08 Prothrombin Time (PT) Comments: PERFORMED BY: [facility]6370 [facility] [id number] Prothrombin Time 19.2 {sec} (Abnormal) Range: 8.7-11.5 INR 1.8 (Abnormal) Range: 0.8-1.2 Comments: Reference interval is for non-anticoagulated patients. . Suggested INR therapeutic range for Vitamin K anta gonist therapy: Standard Dose (moderate intensity therapeutic range): 2.0 - 3.0 Higher intensity therapeutic range 2.5 - 3.5 :19 Vitamin D Hydroxy (12063) Comments: PATIENT WAS FASTINGPERFORMED BY: [facility]6370 [facility] [id number] Vitamin D, 25-Hydroxy 43.1 ng/mL (Normal) Range: 32.0-100.0 Comments: Effective July 09, 2011 Vitamin D, 25-Hydroxy reference intervals will be changing to 30-100. .Recent studies consider the lower li osbaldo of 32.0 ng/mL to be athreshold for optimal health.Ye JARVIS. J Nutr. 2004;135(2):317-22. :19 MICROALBUMIN: CREATININE RATIO Comments: PATIENT WAS FASTINGPERFORMED BY: [place] 2305470 [facility] [id number] (87925) AND (91628) Microalb/Creat Ratio 24.6 {mg/g_creat} (Normal) Range: 0.0-30.0 Creatinine, Urine 23.6 mg/dL (Normal) Range: 15.0-278.0 Microalbumin, Urine 5.8 ug/mL (Normal) Range: 0.0-17.0 :19 LIPID PANEL (99888) Comments: PATIENT WAS FASTINGPERFORMED BY: [employer] Jhyelh7035 [facility] [id number] LDL/HDL Ratio 1.5 {ratio_units} (Normal) Range: 0.0-3.2 [...] MANUAL DIFF Comments: PATIENT WAS FASTINGPERFORMED BY: [employer] Grnpgf7183 [facility] [id number] Information: [id number] CC:[id number] (29048) Immature Grans (Abs) 0.0 {x10E3/uL} (Normal) Range: [...] COMPREHENSIVE Comments: PATIENT WAS FASTINGPERFORMED BY: [facility]Co Jfycob4731 [facility] [id number]; appt 06/05/11 (84713) ALT (SGPT) 16 [iU]/L (Normal) Range: 0-40 [...] Range: 65-99 :59 Blood Glucose , Office (32722) Blood Glucose , Office 129 (Normal) :04 Prothrombin Time (PT) Comments: PERFORMED BY: YAO Chronon SystemsHighlands-Cashiers Hospital [id number] Prothrombin Time 25.1 {sec} (Abnormal) Range: 8.7-11.5 INR 2.4 (Abnormal) Range: 0.8-1.2 Comments: Reference interval is for non-anticoagulated patients. . Suggested INR therapeutic range for Vitamin K anta gonist therapy: Standard Dose (moderate intensity therapeutic range): 2.0 - 3.0 Higher intensity therapeutic range 2.5 - 3.5 :34 PT (PROTHROMBIN TIME) Comments: PATIENT NOT FASTINGPERFORMED BY: YAO [employer]70 RealRiderHighlands-Cashiers Hospital [id number] Information: [id number],NO DRAW FEE 2ND ORD ER (19564) Prothrombin Time 30.5 {sec} (Abnormal) Range: 8.7-11.5 INR 2.9 (Abnormal) Range: 0.8-1.2 Comments: Reference interval is for non-anticoagulated patients. . Suggested INR therapeutic range for Vitamin K anta gonist therapy: Standard Dose (moderate intensity therapeutic range): 2.0 - 3.0 Higher intensity therapeutic range 2.5 - 3.5 :38 Vitamin D Hydroxy (58497) Comments: today and 3 mos; PATIENT NOT FASTINGPERFORMED BY: [employer] Ecovative DesignHighlands-Cashiers Hospital [id number] Information: [id number] Vitamin D, 25-Hydroxy 56.7 ng/mL (Normal) Range: 32.0-100.0 Comments: Recent studies consider the lower limit of 32.0 ng/mL to be athreshold for optimal health.Ye JARVIS. J Nutr. 2004;135(2):317-22. 97-Sda-098773:00 MICROALBUMIN: CREATININE Comments: PATIENT NOT FASTINGPERFORMED BY: LabRemedy PartnersPascack Valley Medical CenterOtlcsj2084 [facility] [id number] Information: [id number] RATIO (03426) AND (14093) Microalb/Creat Ratio 10.0 {mg/g_creat} (Normal) Range: 0.0-30.0 Microalbumin, Urine 4.3 ug/mL (Normal) Range: 0.0-17.0 Creatinine, Urine 43.2 mg/dL (Normal) Range: 15.0-278.0 :32 Blood Glucose , Office (66120) Blood Glucose , Office 137 (Normal) :32 HgA1C , Office (33142) HgA1C , Office 6.1 % (Normal) Range: 4.6 - 7.1 :38 Prothrombin Time (PT) Comments: PERFORMED BY: LabCoPresbyterian Santa Fe Medical CenterFczhgz1520 [facility] [id number] Prothrombin Time 26.7 {sec} (Abnormal) Range: 8.7-11.5 INR 2.5 (Abnormal) Range: 0.8-1.2 Comments: Reference interval is for non-anticoagulated patients. . Suggested INR therapeutic range for Vitamin K anta gonist therapy: Standard Dose (moderate intensity therapeutic range): 2.0 - 3.0 Higher intensity therapeutic range 2.5 - 3.5 :21 HgA1C , Office (51598) HgA1C , Office 6.0 % (Normal) Range: 4.6 - 7.1 :21 Blood Glucose , Office (43846) Blood Glucose , Office 118 (Normal) :10 DEXA BONE DENSITY STUDY (HP) Radiology Report See Note (Normal) Comments: CLINICAL:This is a 65-year-old female patient for post menopausal screening. EXAMINATION:DUAL ENERGY X-RAY ABSORPTIOMETRY / DEXA. TECHNIQUE:Bone Density Measurements (BMD) of lumbar spine and bilateral hips wereobtained using a [employer] scanner.. COMPARISON:None. FINDINGS: Lumbar Spine (L1-L4): g/cm2 [...] on 07/19/10 0726 Sign by: Irvin Cho 66-Dhd-54090:00 BILAT SCRN DIGITAL & CAD Radiology Report [...] on 07/19/10 1052 Sign by: ELAINE NIEVES 83-Ish-25472:59 Prothrombin Time (PT) Comments: PERFORMED BY: YAO popexpert6370 [address] [place] Evaluation AssociationHighlands-C[facility] [id number] Prothrombin Time 30.2 {sec} (Abnormal) Range: 8.7-11.5 INR 2.8 (Abnormal) Range: 0.8-1.2 Comments: Reference interval is for non-anticoagulated patients. . Suggested INR therapeutic range for Vitamin K anta gonist therapy: Standard Dose (moderate intensity therapeutic range): 2.0 - 3.0 Higher intensity therapeutic range 2.5 - 3.5 32-Bcs-717615:36 PT (Prothrobim Time) Comments: standing order; PATIENT NOT FASTINGPERFORMED BY: [place] Carlife AssistPascack Valley Medical CenterGbgyeb4066 [facility] [id number] Information: [id number] (26673) Prothrombin Time 17.5 {sec} (Abnormal) Range: 8.7-11.5 INR 1.6 (Abnormal) Range: 0.8-1.2 Comments: Reference interval is for non-anticoagulated patients. . Suggested INR therapeutic range for Vitamin K anta gonist therapy: Standard Dose (moderate intensity therapeutic range): 2.0 - 3.0 Higher intensity therapeutic range 2.5 - 3.5 :22 Prothrombin Time (PT) Comments: PERFORMED BY: [place] Carlife AssistPascack Valley Medical CenterQvpahi1996 [facility] [id number] Prothrombin Time 19.0 {sec} (Abnormal) Range: 8.7-11.5 INR 1.8 (Abnormal) Range: 0.8-1.2 Comments: Reference interval is for non-anticoagulated patients..Suggested INR therapeutic range for Vitamin Kantagonist therapy:Standard Dose (moderate intensitytherapeutic range): 2.0 - 3.0Higher intensity therapeutic range 2.5 - 3.5 :24 HgA1C , Office (24062) HgA1C , Office 6.6 % (Normal) Range: 4.6 - 7.1 :24 Blood Glucose , Office (88512) Blood Glucose , Office 128 (Normal) :25 CBC With Differential/Platelet Comments: PATIENT WAS FASTINGPERFORMED BY: LabCoPascack Valley Medical CenterFigcqm7694 [facility] [id number] Immature Grans (Abs) 0.0 {x10E3/uL} (Normal) Range: [...] 3.80-5.10 WBC 7.0 {x10E3/uL} (Normal) Range: 4.0-10.5 99-Fql-17544:25 Comp. Metabolic Panel (14) Comments: PATIENT WAS FASTINGPERFORMED BY: LabCoPascack Valley Medical CenterSgnpro5278 [facility] [id number] ALT (SGPT) 18 [iU]/L (Normal) Range: 0-40 [...] With LDL/HDL Comments: PATIENT WAS FASTINGPERFORMED BY: SeawindFormerly [facility] [id number] Ratio LDL Cholesterol Calc 67 mg/dL (Normal) [...] Time (PT) Comments: PATIENT WAS FASTINGPERFORMED BY: [facility]6370 [facility] [id number] INR 1.7 (Abnormal) Range: 0.8-1.2 Comments: Reference interval is for non-anticoagulated patients..Suggested INR therapeutic range for Vitamin Kantagonist therapy:Standard Dose (moderate intensitytherapeutic range): 2.0 - 3.0Higher intensity therapeutic range 2.5 - 3.5 Prothrombin Time 18.0 {sec} Range: 8.7-11.5 (Abnormal) 02-May-2010 Vitamin D, 25-Hydroxy 44.2 ng/mL (Normal) Comments: PATIENT WAS FASTINGPERFORMED BY: LikeIt.comSturgis Hospital6370 [facility] [id number] 9:25 Range: 32.0-100.0 Comments: Recent studies consider the lower limit of 32.0 ng/mL to be athreshold for optimal health.Ye JARVIS. J Nutr. 2004;135(2):317-22. 62-Afj-820259:08 Uric Acid, 24 hr Urine Comments: PERFORMED BY: [facility] Hospitallin6370 [facility] [id number] Information: 02/13@6AM 02/14@545AM Uric Acid, Urine 24hr 502.4 {mg/24_hr} (Normal) Range: 250.0-750.0 Uric Acid, Urine 15.7 mg/dL (Normal) 13-Vth-865789:21 Prothrombin Time (PT) Comments: PERFORMED BY: [employer] Pokjod5852 [facility] [id number] Prothrombin Time 24.1 {sec} (Abnormal) Range: 8.7-11.5 INR 2.4 (Abnormal) Range: 0.8-1.2 Comments: Reference interval is for non-anticoagulated patients..Suggested INR therapeutic range for Vitamin Kantagonist therapy:Standard Dose (moderate intensitytherapeutic range): 2.0 - 3.0Higher intensity therapeutic range 2.5 - 3.5 Uric Acid, Serum 10.8 mg/dL (Abnormal) Comments: PERFORMED BY: [facility]6370 [facility] [id number] :21 Range: 2.4-8.2 37-Uht-687204:22 HgA1C , Office (80242) HgA1C , Office 6.4 % (Normal) Range: 4.6 - 7.1 56-Rxr-247928:22 Blood Glucose , Office (22829) Blood Glucose , Office 137 (Normal) 69-Duc-948839:38 URIC ACID BLOOD (10587) Comments: PATIENT NOT FASTINGPERFORMED BY: [facility]6370 [facility] [id number] Information: [id number] Uric Acid, Serum 9.0 mg/dL (Abnormal) Range: 2.4-8.2 37-Rki-028555:16 FOOT,MIN 3 VIEWS (MT) Radiology Report See Note (Normal) Comments: Exam Number: [id number] LEFT FOOT Three views of the left [...] seen. IMPRESSIONPlantar spur. Reported By: IRVIN CHO 39-Wvc-705732:56 PTT (Activated Partial Comments: PATIENT NOT FASTINGPERFORMED BY: [place] Carlife AssistPascack Valley Medical CenterNladiu8234 [facility] [id number] Thromboplastin Time) (93758) aPTT 56 {sec} (Abnormal) Range: 24-33 Comments: This test has not been validated for monitoring unfractionated heparintherapy. aPTT-based therapeutic ranges for unfractionated heparintherapy have not been established. For general guidelines onHeparin monitoring, refer to the [facility] Directory of Services. 74-Yxn-818745:56 PT (Prothrobim Time) Comments: PATIENT NOT FASTINGPERFORMED BY: LikeIt.comSturgis Hospital6370 [facility] [id number] Information: [id number] (21690) Prothrombin Time 24.2 {sec} (Abnormal) Range: 8.7-11.5 INR 2.5 (Abnormal) Range: 0.8-1.2 Comments: Reference interval is for non-anticoagulated patients..Suggested INR therapeutic range for Vitamin Kantagonist therapy:Standard Dose (moderate intensitytherapeutic range): 2.0 - 3.0Higher intensity therapeutic range 2.5 - 3.5 31-Oou-787025:49 Prothrombin Time (PT) Comments: PERFORMED BY: [facility]It.comSturgis Hospital6370 [facility] [id number] Prothrombin Time 26.2 {sec} (Abnormal) Range: 8.7-11.5 INR 2.7 (Abnormal) Range: 0.8-1.2 Comments: Reference interval is for non-anticoagulated patients..Suggested INR therapeutic range for Vitamin Kantagonist therapy:Standard Dose (moderate intensitytherapeutic range): 2.0 - 3.0Higher intensity therapeutic range 2.5 - 3.5 Hemoglobin A1c 6.1 % (Abnormal) Comments: PERFORMED BY: [place] Carlife AssistPascack Valley Medical CenterJkbowc1945 [facility] [id number] :56 Range: 4.8-5.6 Comments: Increased risk for diabetes: 5.7 - 6.4Diabetes: >6.4Glycemic control for adults with diabetes: <7.0.Please note reference interval change :21 HgA1C , Office (78794) HgA1C , Office 6.1 % (Normal) Range: 4.6 - 7.1 :21 Blood Glucose , Office (89304) Blood Glucose , Office 98 (Normal) :46 CBC With Differential/Platelet Comments: A courtesy copy of this report has been sent [phone].PATIENT WAS FASTINGPERFORMED BY: LikeIt.comSturgis Hospital6370 [facility] [id number] Information: [id number] Baso (Absolute) 0.0 {x10E3/uL} (Normal) Range: 0.0-0.2 [...] copy of this report has been sent [phone].PATIENT WAS FASTINGPERFORMED BY: [facility] Nqwqsg2337 [facility] [id number] Alkaline Phosphatase, S 85 [iU]/L (Normal) Range: [...] copy of this report has been sent [phone].PATIENT WAS FASTINGPERFORMED BY: [employer] [facility] Yeyiea3241 [facility] [id number] Ratio HDL Cholesterol 37 mg/dL (Abnormal) Comments: [...] copy of this report has been sent [phone].PATIENT WAS FASTINGPERFORMED BY: [facility] Nozfzj8763 [facility] [id number] Microalb/Creat Ratio 7.2 {mg/g_creat} (Normal) Range: 0.0-30.0 Creatinine, Urine 16.6 mg/dL (Normal) Range: 15.0-278.0 Microalbumin, Urine 1.2 ug/mL (Normal) Range: 0.0-17.0 :46 Prothrombin Time (PT) Comments: A courtesy copy of this report has been sent [phone].PATIENT WAS FASTINGPERFORMED BY: [place] Carlife AssistPascack Valley Medical CenterLwlftv2570 [facility] [id number] Prothrombin Time 28.1 {sec} Range: 8.7-11.5 (Abnormal) INR 2.9 (Abnormal) Range: 0.8-1.2 Comments: Reference interval is for non-anticoagulated patients..Suggested INR therapeutic range for Vitamin Kantagonist therapy:Standard Dose (moderate intensitytherapeutic range): 2.0 - 3.0Higher intensity therapeutic range 2.5 - 3.5 Vitamin D, 25-Hydroxy 27.8 ng/mL Comments: A courtesy copy of this report has been sent [phone].PATIENT WAS FASTINGPERFORMED BY: [place] Carlife AssistPascack Valley Medical CenterMxxruj2745 [facility] [id number] :46 (Abnormal) Range: 32.0-100.0 Comments: Recent studies consider the lower limit of 32.0 ng/mL to be athreshold for optimal health.eY JARVIS. J Nutr. 2004;135(2):317-22. 61-Ywa-712594:51 Comp. Metabolic Panel (14) Comments: PERFORMED BY: [place] Carlife AssistPascack Valley Medical CenterUiduqa8665 [facility] [id number] A/G Ratio 1.3 (Normal) Range: 1.1-2.5 Albumin, [...] :51 Prothrombin Time (PT) Comments: PERFORMED BY: [employer] [facility] [id number] INR 2.3 (Abnormal) Range: 0.8-1.2 Comments: Reference interval is for non-anticoagulated patients. . Suggested INR therapeutic range for Vitamin K anta gonist therapy: Standard Dose (moderate intensity therapeutic range): 2.0 - 3.0 Higher intensity therapeutic range 2.5 - 3.5 Prothrombin Time 22.7 {sec} (Abnormal) Range: 8.7-11.5 :47 PT (Prothrobim Time) (21413) Comments: PATIENT NOT FASTINGClinical Information: [id number] PERFORMED BY: [facility] Universitylin6370 [facility] [id number] INR 2.0 (Abnormal) Range: 0.8-1.2 Comments: Reference interval is for non-anticoagulated patients. . Suggested INR therapeutic range for Vitamin K anta gonist therapy: Standard Dose (moderate intensity therapeutic range): 2.0 - 3.0 Higher intensity therapeutic range 2.5 - 3.5 Prothrombin Time 19.7 {sec} (Abnormal) Range: 8.7-11.5 13-Vmd-824421:10 HgA1C , Office (34214) HgA1C , Office 6.3 % (Normal) Range: 4.6 - 7.1 63-Vev-731827:10 Blood Glucose , Office (91793) Blood Glucose , Office 109 (Normal) 76-Qhh-679257:58 BILAT SCRN DIGITAL & CAD Radiology Report See Note (Normal) Comments: Exam Number: [id number] MAMMOGRAM, BILATERAL SCREENING DIGITAL AND CAD HISTORYRoutine [...] mammograms werealso examined with computer-aided detection software (ImageIMT ([employer]), [employer] Reported By: ELAINE NIEVES M.D. 1-Ypx-988702:22 PRO TIME INR 2.3 (Normal) PROTIME 26.1 s (Abnormal) Range: 9.1-11.7 03-Ahf-988212:19 CHEST, PA AND LATERAL (MT) Radiology Report See Note (Normal) Comments: Exam Number: [id number] PA AND LATERAL CHEST Mild cardiomegaly appears [...] (Abnormal) Range: 9.1-11.7 :58 HgA1C , Office (40889) HgA1C , Office 5.7 % (Normal) Range: 4.6 - 7.1 :58 Blood Glucose , Office (65618) Blood Glucose , Office 119 (Normal) :39 PT/INR, Office (76076) INR 2.6 (Normal) :55 PT/INR, Office (06536) INR 2.5 (Normal) Comments: aw :01 HgA1C , Office (43794) HgA1C , Office 5.8 % (Normal) Range: 4.6 - 7.1 :01 Blood Glucose , Office (28396) Blood Glucose , Office 111 (Normal) :27 PT/INR, Office (78766) INR 2.2 (Normal) :09 PT/INR, Office (60149) INR 1.8 (Normal) :55 PT/INR, Office (67365) INR 3.3 (Normal) :51 PT/INR, Office (40719) INR 3.2 (Normal) Comments: aw 52-Tcs-820882:00 PT/INR, Office (08622) INR 2.9 (Normal) :14 PT/INR, Office (64266) INR 3.7 (Normal) :50 HgA1C , Office (51022) HgA1C , Office 5.8 % (Normal) Range: 4.6 - 7.1 :50 Blood Glucose , Office (09954) Blood Glucose , Office 119 (Normal) :03 CBC With Differential/Platelet Comments: PATIENT WAS FASTINGPERFORMED BY: [facility] Pnqron3554 [facility] [id number] Baso (Absolute) 0.0 {x10E3/uL} (Normal) Range: 0.0-0.2 [...] 11.7-15.0 WBC 7.4 {x10E3/uL} (Normal) Range: 4.0-10.5 61-Fee-308126:03 Comp. Metabolic Panel (14) Comments: PATIENT WAS FASTINGPERFORMED BY: LabS[facility] Lqquxp1488 [facility] [id number] A/G Ratio 1.1 (Normal) Range: 1.1-2.5 Albumin, [...] Serum 106 mg/dL (Abnormal) Range: 65-99 If -Vietnamese 46 mL/min/1.73 Comments: Note: Persistent reduction for [...] With LDL/HDL Comments: PATIENT WAS FASTINGPERFORMED BY: [address] [id number] Ratio Cholesterol, Total 129 mg/dL (Normal) Range: 100-199 HDL Cholesterol 34 mg/dL (Abnormal) Comments: According to ATP-III Guidelines, HDL-C >59 mg/dL is considered anegative risk factor for CHD. LDL Cholesterol Calc 66 mg/dL (Normal) Range: 0-99 LDL/HDL Ratio 1.9 {ratio_units} (Normal) Range: 0.0-3.2 Triglycerides 144 mg/dL (Normal) Range: 0-149 VLDL Cholesterol Maricruz 29 mg/dL (Normal) Range: 5-40 01-Lgr-428028:03 Microscopic Examination Comments: PATIENT WAS FASTINGPERFORMED BY: [address] [id number] Bacteria Few (Normal) Cast Type Hyaline casts (Normal) Casts Present {/lpf} (Abnormal) Crystal Type Amorphous Sediment (Normal) Crystals Present (Abnormal) Epithelial Cells (non 0-10 {/hpf} (Normal) Range: 0 - 10 renal) Mucus Threads Present (Normal) RBC 0-3 {/hpf} (Normal) Range: 0 - 3 WBC 0-5 {/hpf} (Normal) Range: 0 - 5 NTI Urine Tube (Dorsey) COMMNT (Normal) Comments: PATIENT WAS FASTINGPERFORMED BY: [facility] [place] [address] [id number] 1:03 Comments: .A urine culture transport was received with no test indicated. Iftesting is required on this specimen, please contact the [facility] Inquiry/Technical Services Department to obtain a Request forWritten Authorization Form. TSH 2.526 {uIU/mL} Comments: PATIENT WAS FASTINGPERFORMED BY: [facility]6370 [facility] [id number] 1:03 (Normal) Range: 0.450-4.500 97-Efp-134185:03 Urinalysis, Routine Comments: PATIENT WAS FASTINGPERFORMED BY: [facility]CoP[facility] CenterJrzbom5[facility] [id number] Appearance Clear (Normal) Bilirubin Negative (Normal) Glucose Negative (Normal) Ketones Negative (Normal) Microscopic Examination See below: (Normal) Nitrite, Urine Negative (Normal) Occult Blood Negative (Normal) pH 7.0 (Normal) Range: 5.0-7.5 Protein Negative (Normal) Specific [place] 1.008 (Normal) Range: 1.005-1.030 Urine-Color Yellow (Normal) Urobilinogen,Semi-Qn 0.2 mg/dL (Normal) Range: 0.0-1.9 WBC Esterase Trace (Abnormal) :29 PT/INR, Office (16754) INR 2.6 (Normal) Comments: aw 75-Ntf-255172:16 HgA1C , Office (59569) HgA1C , Office 6.1 % (Normal) Range: 4.6 - 7.1 29-Yxd-289185:16 Blood Glucose , Office (36789) Blood Glucose , Office 186 (Normal) 04-Ltj-747052:16 PT/INR, Office (78924) INR 2.8 (Normal) :49 BILAT SCRN DIGITAL & CAD Radiology Report See Note (Normal) Comments: Exam Number: [id number] MAMMOGRAM, BILATERAL SCREENING DIGITAL AND CAD HISTORYRoutine [...] mammograms werealso examined with computer-aided detection software ([employer], [employer] Reported By: ELAINE NIEVES M.D. :37 PT/INR, Office (17409) INR 2.4 (Normal) :00 PT/INR, Office (62827) INR 1.9 (Normal) PT (PROTHROMBIN TIME) INR - 1.9 s (Normal) Range: 11.5-13.5 :18 DEXA BONE DENSITY/APPEND SKEL Radiology Report See Note (Normal) Comments: Exam Number: [id number] BONE DENSITOMETRY/APPENDICULAR SKELETON HISTORYOsteopenia. TECHNIQUE Bone densitometry [...] of osteopenia. Reported By: ELAINE NIEVES M.D. 18-Dhq-494676:08 PT/INR, Office (78770) INR 2.0 (Normal) 01-Vhz-341421:08 HgA1C , Office (01618) HgA1C , Office 6.3 % (Normal) Range: 4.6 - 7.1 93-Lzl-444153:08 Blood Glucose , Office (57932) Blood Glucose , Office 177 (Normal) :13 [...] (Normal) PROTIME 28.9 s (Abnormal) Range: 10.6-13.2 58-Grf-276857:08 PRO TIME INR 3.4 (Normal) PROTIME 36.9 s (Abnormal) Range: 10.6-13.2 95-Azw-477704:20 PRO TIME INR 2.1 (Normal) PROTIME 23.9 s (Abnormal) Range: 10.6-13.2 :39 PRO TIME INR 3.1 (Normal) PROTIME 33.5 s (Abnormal) Range: 10.6-13.2 :22 HgA1C , Office (88483) HgA1C , Office 6.1 % (Normal) Range: 4.6 - 7.1 :22 Blood Glucose , Office (21495) Blood Glucose , Office 105 (Normal) :34 [...] s (Abnormal) Range: 10.6-13.2 :35 PT/INR, Office (29593) INR 2.7 (Normal) :56 HgA1C , Office (19119) HgA1C , Office 5.8 % (Normal) Range: 4.6 - 7.1 :56 Blood Glucose , Office (88526) Blood Glucose , Office 103 (Normal) :28 PRO TIME INR 2.8 (Normal) PROTIME 30.7 s (Abnormal) Range: 10.6-13.2 :55 PRO TIME INR 2.1 (Normal) PROTIME 24.0 s (Abnormal) Range: 10.6-13.2 :05 PT/INR, Office (35547) INR 2.5 (Normal) :05 Blood Glucose , Office (25954) Blood Glucose , Office 100 (Normal) :05 HgA1C , Office (67603) HgA1C , Office 6.2 % (Normal) Range: 4.6 - 7.1 :10 [facility] DIGITAL & CAD Radiology Report See Note (Normal) Comments: Exam Number: [id number] DIGITAL SCREENING MAMMOGRAPHY WITH CAD COMPARISON STUDYDated [...] werealso examined with computer- aided detection software ([employer].). Reported By: MAO KURTZ M.D. :49 PRO TIME INR 2.5 (Normal) PROTIME 27.8 s (Abnormal) Range: 10.6-13.2 :13 PRO TIME INR 2.7 (Normal) PROTIME 29.7 s (Abnormal) Range: 10.6-13.2 :14 PRO TIME INR 2.2 (Normal) PROTIME 24.3 s (Abnormal) Range: 10.6-13.2 :26 PT/INR, Office (72919) INR 2.5 (Normal) PT (PROTHROMBIN TIME) INR 2.5 s (Normal) Range: 11.5-13.5 :25 HgA1C , Office (62570) HgA1C , Office 6.0 % (Normal) Range: 4.6 - 7.1 :25 Blood Glucose , Office (51411) Blood Glucose , Office 108 (Normal) :20 [...] Note Reference Interval Change :22 PT/INR, Office (79498) Comments: done- same dose recheck in 2 weeks-- alternate 4/5 INR 2.3 (Normal) :22 HgA1C , Office (53417) Comments: done HgA1C , Office 5.9 % (Normal) Range: 4.6 - 7.1 :21 Blood Glucose , Office (17922) Comments: done Blood Glucose , Office 101 [...] s (Abnormal) Range: 11.7-13.3 :50 PT/INR, Office (67848) INR 1.9 (Normal) PT (PROTHROMBIN TIME) 16.9 s (Abnormal) Range: 11.5-13.5 :50 HgA1C , Office (98211) HgA1C , Office 6.0 % (Normal) Range: 4.6 - 7.1 :50 Blood Glucose , Office (86920) Blood Glucose , Office 95 (Normal) :59 [...] (Abnormal) Range: 11.7-13.3 :40 HgA1C , Office (45333) HgA1C , Office 5.7 % (Normal) Range: 4.6 - 7.1 :40 Blood Glucose , Office (24936) Blood Glucose , Office 115 (Normal) Plan of Care Name Dates Details Instructions Anasarca : Follow up in 3 months Indication: Anasarca Iron deficiency anemia : Reviewed [employer] Operator Letter Indication: Iron deficiency anemia Valvular disease : Reviewed [employer] Processing Machine Operator Letter Indication: Valvular disease Lower GI bleed : Reviewed Lab Indication: Lower GI bleed Lower GI bleed : Reviewed [employer] Processing Machine Operator Letter Indication: Lower GI bleed Essential hypertension with goal blood pressure less than 130/80 : Reviewed [employer] Operator Letter Indication: Essential hypertension with goal blood [...] : Follow up in 2 weeks with [facility] SaturdayNovember 20 Indication: Cough Cough : Follow [...] : FOLLOW UP IN 1 WEEK with [facility] Indication: Atrial fibrillation Mixed dyslipidemia : Diet, Exercise, and Wt loss Indication: Mixed dyslipidemia Cough : MDI Education Indication: Cough Mixed dyslipidemia : FOLLOW UP IN 2 MONTHS Indication: Mixed dyslipidemia FOLLOW UP IN 3 MONTHS Planned Observations Metabolic Panel, Comprehensive (47359)Indication: CKD (chronic kidney disease), stage III On: :09 Request CBC & PLATELETS (AUTO) (85808)Indication: Lower GI bleed On: :08 Request PT (PROTHROMBIN TIME) (32486)Indication: Lower GI bleed On: :08 Request Metabolic Panel, Basic (62261)Indication: Shortness of breath On: :58 Request CBC, Platelets & Auto Diff (85280)Indication: Shortness of breath On: :55 Request BNTP (05947)Indication: Shortness of breath On: :55 Request BNTP (22453)Indication: Acute CHF On: 2-Euv-788828:18 Request METABOLIC PANEL, COMPREHENSIVE (44505)Indication: Acute CHF On: 5-Xez-936532:18 Request CBC & PLATELETS (AUTO) (47486)Indication: Acute CHF On: 3-Uaa-159559:18 Request FERRITIN (56419)Indication: Iron deficiency anemia On: 6-Uss-492153:22 Request IRON BINDING CAPACITY (TIBC) (63113)Indication: Iron deficiency anemia On: 2-Yyh-840553:22 Request IRON (08137)Indication: Iron deficiency anemia On: 3-Hzc-880818:22 Request IRON & TOTAL IRON BINDING CAPACITY (36065)Indication: Iron deficiency anemia On: 5-Xly-870059:22 Request LIPID PANEL (70890)Indication: Diabetes mellitus type II, controlled On: 0-Mqj-039777:20 Request Metabolic Panel, Comprehensive (25066)Indication: Acute renal failure On: 0-Lag-721839:19 Request PT (Prothrobim Time) (15631)Indication: Walking pneumonia On: 12-Oia-410238:20 Request PT (PROTHROMBIN TIME) (89801)Indication: Atrial fibrillation On: 03-May-2017 Request Comments: Standing order Ferritin (69365)Indication: Anemia, unspecified On: 42-Ekt-241006:45 Request Iron (16627)Indication: Anemia, unspecified On: :45 Request CBC WITH MANUAL DIFF (44828)Indication: Anemia, unspecified On: :45 Request CBC, Platelets & Auto Diff (58545)Indication: Lower GI bleed On: :40 Request Comments: Week of February 25, give lab slip HgA1C , Office (09897)Indication: Diabetes mellitus type II, controlled On: : Request Blood Glucose , Office (65429)Indication: Diabetes mellitus type II, controlled On: :26 Request FERRITIN (90554)Indication: Anemia, unspecified On: :26 Request HGB (HEMOGLOBIN) (17395)Indication: Lower GI bleed On: :44 Request MAGNESIUM (65085)Indication: Acute renal failure On: :11 Request Comments: to be done around January 14 Metabolic Panel, Comprehensive (55228)Indication: Acute renal failure On: :06 Request Comments: to be done at [place] 01-14 CBC & PLATELETS (AUTO) (75912)Indication: Acute renal failure On: :06 Request Comments: to be done at [place] on 01-14 URINE SIOBHAN CULTURE-IDENTIFICATN (02242)Indication: Acute renal failure On: 5-Smj-716192:55 Request URINALYSIS (12221)Indication: Acute renal failure On: :51 Request Comments: December 25 Renal function Panel (25150)Indication: Acute renal failure On: :51 Request Comments: December 25 METABOLIC PANEL, BASIC (92989)Indication: Abnormal blood finding On: :00 Request CBC, PLATELETS & AUT DIFF (96209)Indication: Abnormal blood finding On: :00 Request Metabolic Panel, Basic (54659)Indication: Abnormal blood finding On: 7-Ejj-339266:01 Request Comments: stat CBC WITH MANUAL DIFF (42627)Indication: Abnormal blood finding On: :17 Request CBC, Platelets & Auto Diff (94307)Indication: Iron deficiency anemia On: 83-Ysm-079734:15 Request PT (PROTHROMBIN TIME) (34882)Indication: Atrial fibrillation On: 3-Soc-896948:36 Request Comments: standing order FERRITIN (27065)Indication: Restless leg syndrome On: :32 Request IRON & TOTAL IRON BINDING CAPACITY (98469)Indication: Restless leg syndrome On: :32 Request MICROALBUMIN: CREATININE RATIO (48515) AND (44856)Indication: Restless leg syndrome On: :32 Request VITAMIN B12 AND FOLATES (25520)Indication: Restless leg syndrome On: : Request CALCIFEDIOL (61612)Indication: Restless leg syndrome On: : Request TSH (THYROID STIMULATING HORMONE) (58637)Indication: Restless leg syndrome On: :32 Request LIPID PANEL (14070)Indication: Mixed dyslipidemia On: :32 Request METABOLIC PANEL, COMPREHENSIVE (00391)Indication: BMI 45.0-49.9, adult On: :32 Request CBC, PLATELETS & AUT DIFF (12757)Indication: BMI 45.0-49.9, adult On: :32 Request FERRITIN (51765)Indication: Iron deficiency anemia On: :20 Request IRON & TOTAL IRON BINDING CAPACITY (13561)Indication: Iron deficiency anemia On: :20 Request LIPID PANEL (40732)Indication: Mixed dyslipidemia On: :20 Request TSH (THYROID STIMULATING HORMONE) (67131)Indication: Mild vitamin D deficiency On: :19 Request VITAMIN B12 AND FOLATES (19657)Indication: Mild vitamin D deficiency On: :19 Request CALCIFEDIOL (20529)Indication: Mild vitamin D deficiency On: :19 Request METABOLIC PANEL, COMPREHENSIVE (31363)Indication: Diabetes mellitus type 2, uncontrolled, without complications On: :19 Request CBC, PLATELETS & AUT DIFF (24273)Indication: Diabetes mellitus type 2, uncontrolled, without complications On: Request LDH (LD) (LACTATE DEHYDROGENASE) (60544)Indication: Anemia, unspecified On: Request FOLIC ACID SERUM (92937)Indication: Anemia, unspecified On: Request SPEP (73996)Indication: Anemia, unspecified On: Request UPEP (70714)Indication: Anemia, unspecified On: Request FERRITIN (50658)Indication: Anemia, unspecified On: Request IRON (27527)Indication: Anemia, unspecified On: Request VITAMIN B-12 (CYANOCOBALAMIN) (47481)Indication: Anemia, unspecified On: Request CYUGI-CMJUNQTWKYU-TQFPX (38903)Indication: Other chronic nonalcoholic liver disease On: Request CBC with auto diff (05996)Indication: Essential hypertension with goal blood pressure less than 130/80 On: Request HGB A1C (59159)Indication: Diabetes mellitus type II, controlled On: Request MICROALBUMIN: CREATININE RATIO (33472) AND ([id number])Indication: Diabetes mellitus type II, controlled On: Request LIPID PANEL (51167)Indication: Mixed dyslipidemia On: Request Metabolic Panel, Basic (46807)Indication: Diabetes mellitus type 2, uncontrolled, without complications On: Request MICROALBUMIN: CREATININE RATIO (28441) AND (44402)Indication: Diabetes mellitus type II, controlled On: : Request METABOLIC PANEL, COMPREHENSIVE (57303)Indication: Diabetes mellitus type II, controlled On: : Request LIPID PANEL (34930)Indication: Mixed dyslipidemia On: Request CBC (AUTO) (09434)Indication: Anemia, unspecified On: 59 Request Vitamin D Hydroxy (05155)Indication: Mild vitamin D deficiency On: 92-Tyc-03631:59 Request AFHHU-VLNYMCBJWTA-VYXUR (64708)Indication: Other chronic nonalcoholic liver disease On: :57 Request CBC with auto diff (85853)Indication: Pulmonary hypertension On: :50 Request Hemoglobin Glyclated (HGB A1C) (84187)Indication: Diabetes mellitus type II, controlled On: :50 Request METABOLIC PANEL, COMPREHENSIVE (68260)Indication: Essential hypertension with goal blood pressure less than 130/80 On: :49 Request LIPID PANEL (41916)Indication: Mixed dyslipidemia On: :49 Request LIPID PANEL (19244)Indication: Diabetes mellitus type II, controlled On: :49 Request HEPATIC FUNCTION PANEL (99276)Indication: Diabetes mellitus type II, controlled On: :49 Request Vitamin D Hydroxy (99458)Indication: Mild vitamin D deficiency On: :30 Request METABOLIC PANEL, COMPREHENSIVE (03510)Indication: Diabetes mellitus type II, controlled On: :30 Request LIPID PANEL (19779)Indication: Mixed dyslipidemia On: :30 Request RAIPE-JFTTCYKKXQP-JREIX (84828)Indication: Other chronic nonalcoholic liver disease On: :29 Request CBC with auto diff (14603)Indication: Anemia, unspecified On: :29 Request MICROALBUMIN: CREATININE RATIO (32189) AND (06602)Indication: Diabetes mellitus type II, controlled On: :24 Request METABOLIC PANEL, COMPREHENSIVE (20812)Indication: Essential hypertension with goal blood pressure less than 130/80 On: :24 Request Vitamin D Hydroxy (76240)Indication: Mild vitamin D deficiency On: :24 Request LIPID PANEL (16477)Indication: Mixed dyslipidemia On: :24 Request LDH (LD) (LACTATE DEHYDROGENASE) (60656)Indication: Anemia, unspecified On: :24 Request VITAMIN B-12 (CYANOCOBALAMIN) (50173)Indication: Anemia, unspecified On: :24 Request IRON BINDING CAPACITY (TIBC) (95193)Indication: Anemia, unspecified On: :24 Request FERRITIN (52166)Indication: Anemia, unspecified On: :24 Request IRON (63002)Indication: Anemia, unspecified On: :24 Request CBC W/AUTO DIFF WBC (88213)Indication: Anemia, unspecified On: :24 Request LIPID PANEL (01078)Indication: Mixed dyslipidemia On: : Request METABOLIC PANEL, COMPREHENSIVE (57278)Indication: Essential hypertension with goal blood pressure less than 130/80 On: :02 Request CBC (AUTO) (48089)Indication: Anemia, unspecified On: : Request Vitamin D Hydroxy (40349)Indication: Mild vitamin D deficiency On: : Request BAOUG-BJLALTAHOOT-MHYRG (65945)Indication: Other chronic nonalcoholic liver disease On: : Request PTT (Activated Partial Thromboplastin Time) (00002)Indication: Other chronic nonalcoholic liver disease On: : Request PT (Prothrobim Time) (83697)Indication: Other chronic nonalcoholic liver disease On: : Request PT (Prothrobim Time) (44604)Indication: Atrial fibrillation On: :28 Request Comments: STANDING ORDER CBC WITH MANUAL DIFF (89391)Indication: Anemia, unspecified On: :53 Request LIPID PANEL (72928)Indication: Mixed dyslipidemia On: :53 Request MICROALBUMIN: CREATININE RATIO (88496) AND (32462)Indication: Diabetes mellitus type II, controlled On: 39-Ish-983592:52 Request METABOLIC PANEL, COMPREHENSIVE (47640)Indication: Diabetes mellitus type II, controlled On: 26-Wsz-508466:52 Request Vitamin D Hydroxy (75037)Indication: Mild vitamin D deficiency On: :52 Request Vitamin D Hydroxy (47954)Indication: Mild vitamin D deficiency On: :13 Request LIPID PANEL (16270)Indication: Mixed dyslipidemia On: :12 Request URIC ACID BLOOD (93279)Indication: Gout On: :12 Request AOEXO-VSSMLUONBPL-VFNPK (15529)Indication: Other chronic nonalcoholic liver disease On: :12 Request PTT (Activated Partial Thromboplastin Time) (69313)Indication: Other chronic nonalcoholic liver disease On: :12 Request METABOLIC PANEL, COMPREHENSIVE (67186)Indication: Essential hypertension with goal blood pressure less than 130/80 On: :12 Request CBC WITH MANUAL DIFF (98208)Indication: Anemia, unspecified On: 48-Rpb-068693:11 Request PT (Prothrobim Time) (47197)Indication: Atrial fibrillation On: 01-Odn-556013:59 Request Comments: STANDING ORDER HEPATIC FUNCTION PANEL (33435)Indication: Mixed dyslipidemia On: 10-Isd-577695:56 Request CBC WITH MANUAL DIFF (45029)Indication: Gout On: :08 Request LIPID PANEL (83246)Indication: Mixed dyslipidemia On: :08 Request METABOLIC PANEL, COMPREHENSIVE (04328)Indication: Diabetes mellitus type II, controlled On: 76-Duh-283458:08 Request MICROALBUMIN: CREATININE RATIO (05409) AND (37210)Indication: Diabetes mellitus type II, controlled On: :08 Request Metabolic Panel, Basic (32826)Indication: Hyperkalemia On: 87-Gue-782980:40 Request PT (Prothrobim Time) (08584)Indication: Atrial fibrillation On: 8-Sum-980361:35 Request LIPID PANEL (48433)Indication: Mixed dyslipidemia On: 68-Afi-765882:34 Request METABOLIC PANEL, COMPREHENSIVE (00306)Indication: Diabetes mellitus type II, controlled On: 95-Ikg-185465:33 Request MICROALBUMIN: CREATININE RATIO (66908) AND (39642)Indication: Diabetes mellitus type II, controlled On: :33 Request CBC WITH MANUAL DIFF ([id number])Indication: Anemia, unspecified On: 00-Vtu-556047:33 Request CBC WITH MANUAL DIFF (32353)Indication: Anemia, unspecified On: 94-Ozd-021827:07 Request METABOLIC PANEL, COMPREHENSIVE (03915)Indication: Renal insufficiency (Renamed from Renal function impairment) On: :06 Request MICROALBUMIN: CREATININE RATIO (45840) AND (10375)Indication: Diabetes mellitus type II, controlled On: :06 Request LIPID PANEL (12945)Indication: Mixed dyslipidemia On: 62-Omj-928518:06 Request DJSLN-HSTKPQGPZJA-GDRUV (71918)Indication: Other chronic nonalcoholic liver disease On: :06 Request Vitamin D Hydroxy (59093)Indication: Mild vitamin D deficiency On: :05 Request Vitamin D Hydroxy (30816)Indication: Mild vitamin D deficiency On: 78-Uva-092001:08 Request FLURESCNT ANTIB SCRN EA (44963) celiac profileIndication: Anemia, unspecified On: :08 Request IGA/IGD/IGG/IGM-EACH (69081) celiac profileIndication: Anemia, unspecified On: :08 Request IMMUNOASSAY, ANALYTE (NON-INFECT) (35793) celiac profileIndication: Anemia, unspecified On: 89-Mad-026486:08 Request METABOLIC PANEL, COMPREHENSIVE (96314)Indication: Diabetes mellitus type 2, uncontrolled, without complications On: 49-Ila-685831:06 Request CBC with manual diff (01926)Indication: Anemia, unspecified On: 45-Bfx-335599:49 Request Iron Binding Capacity (TIBC) (58538)Indication: Anemia, unspecified On: 28-Cba-756509:49 Request Iron (29205)Indication: Anemia, unspecified On: :49 Request Ferritin (81914)Indication: Anemia, unspecified On: 56-Ehn-884281:49 Request Metabolic Panel, Basic (44630)Indication: Abnormal blood chemistry On: :09 Request LIPID PANEL (22904)Indication: Mixed dyslipidemia On: 68-Pwn-843461:02 Request Metabolic Panel, Basic (73261)Indication: Renal insufficiency (Renamed from Renal function impairment) On: 40-Cyl-404124:01 Request IRON (93506)Indication: Anemia, unspecified On: 23-Yti-280245:32 Request Vitamin D Hydroxy (74207)Indication: Mild vitamin D deficiency On: 84-Qrt-651181:49 Request LIPID PANEL (51066)Indication: Mixed dyslipidemia On: 61-Bxp-339757:48 Request CBC WITH MANUAL DIFF (65885)Indication: Anemia, unspecified On: 35-Vax-701395:48 Request METABOLIC PANEL, COMPREHENSIVE (32605)Indication: Abnormal glucose tolerance test On: 53-Gbn-213320:48 Request MICROALBUMIN: CREATININE RATIO (12870) AND (01717)Indication: Abnormal glucose tolerance test On: :48 Request CALCIFEDIOL (70896)Indication: Mild vitamin D deficiency On: 8-Agg-440164:16 Request LIPID PANEL (88793)Indication: Mixed dyslipidemia On: 6-Gvf-342268:16 Request METABOLIC PANEL, COMPREHENSIVE (22274)Indication: Mixed dyslipidemia On: 0-Rtr-262618:16 Request URINALYSIS (92935)Indication: Essential hypertension with goal blood pressure less than 130/80 On: 7-Ptl-063814:16 Request CBC with manual diff (44644)Indication: Essential hypertension with goal blood pressure less than 130/80 On: 0-Yds-635750:16 Request LDH (LD) (LACTATE DEHYDROGENASE) (03326)Indication: Essential hypertension with goal blood pressure less than 130/80 On: 9-Znq-804757:16 Request Iron (30768)Indication: Essential hypertension with goal blood pressure less than 130/80 On: 5-Cxq-590816:16 Request Ferritin (74101)Indication: Essential hypertension with goal blood pressure less than 130/80 On: 2-Whw-842175:16 Request URIC ACID BLOOD (07863)Indication: Gout On: 81-Ltj-496459:49 Request LDH (LD) (LACTATE DEHYDROGENASE) (59040)Indication: Anemia, unspecified On: 60-Xwh-359834:26 Request URIC ACID BLOOD (16998)Indication: Gout On: 9-Hii-977451:19 Request URIC ACID BLOOD (12003)Indication: Gout On: 9-Kst-903083:16 Request TSH (THYROID STIMULATING HORMONE) (49736)Indication: Mixed dyslipidemia On: :29 Request URINALYSIS (04040)Indication: Mixed dyslipidemia On: 07-Oer-408711:28 Request LIPID PANEL (22910)Indication: Mixed dyslipidemia On: :27 Request CBC, PLATELETS & AUT DIFF (09641)Indication: Mixed dyslipidemia On: :18 Request METABOLIC PANEL, COMPREHENSIVE (35078)Indication: Mixed dyslipidemia On: :17 Request CALCIFEDIOL (46611)Indication: Mild vitamin D deficiency On: :16 Request HgA1C , Office (65513)Indication: Abnormal glucose tolerance test On: :59 Request METABOLIC PANEL, BASIC (55900)Indication: Atrial fibrillation On: :30 Request METABOLIC PANEL, BASIC (44208)Indication: Atrial fibrillation On: :59 Request CBC WITH MANUAL DIFF (13434)Indication: Atrial fibrillation On: :11 Request METABOLIC PANEL, COMPREHENSIVE (08420)Indication: Other chronic nonalcoholic liver disease On: :10 Request LIPID PANEL (63455)Indication: Mixed dyslipidemia On: :10 Request LIPID PANEL (62756)Indication: Mixed dyslipidemia On: :11 Request CBC WITH MANUAL DIFF (41561)Indication: Abnormal glucose tolerance test On: 1-Pmd-415072:11 Request MICROALBUMIN: CREATININE RATIO (23722) AND (33772)Indication: Abnormal glucose tolerance test On: 9-Kyn-937706:11 Request Vitamin D Hydroxy (41644)Indication: Mild vitamin D deficiency On: :11 Request METABOLIC PANEL, COMPREHENSIVE (14229)Indication: Other chronic nonalcoholic liver disease On: :10 Request METABOLIC PANEL, COMPREHENSIVE (74937)Indication: Abnormal glucose tolerance test On: 76-Dqs-689297:10 Request MICROALBUMIN: CREATININE RATIO (35875) AND (01426)Indication: Abnormal glucose tolerance test On: 59-Kob-254076:10 Request LIPID PANEL (58967)Indication: Mixed dyslipidemia On: 40-Kgw-337270:10 Request Vitamin D Hydroxy (52187)Indication: Osteopenia On: 97-Cwd-104508:10 Request LIPID PANEL (08726)Indication: Mixed dyslipidemia On: 80-Bnr-570463:48 Request Vitamin D Hydroxy (17082)Indication: Mild vitamin D deficiency On: :48 Request CBC WITH MANUAL DIFF (11447)Indication: Abnormal glucose tolerance test On: :47 Request METABOLIC PANEL, COMPREHENSIVE (40280)Indication: Abnormal glucose tolerance test On: 58-Adk-303708:47 Request LIPID PANEL (64635)Indication: Mixed dyslipidemia On: 75-Yde-702821:39 Request METABOLIC PANEL, COMPREHENSIVE (56328)Indication: Hypercalcemia On: 12-Pcb-993377:38 Request Vitamin D Hydroxy (30368)Indication: Mild vitamin D deficiency On: :38 Request CBC (AUTO) (23851)Indication: Abnormal glucose tolerance test On: 15-Grm-243594:28 Request Vitamin D Hydroxy (75171)Indication: Osteopenia On: :28 Request CBC WITH MANUAL DIFF (35214)Indication: Essential hypertension with goal blood pressure less than 130/80 On: 06-Rmb-546899:28 Request MICROALBUMIN: CREATININE RATIO (91986) AND (16941)Indication: Abnormal glucose tolerance test On: :28 Request METABOLIC PANEL, COMPREHENSIVE (33397)Indication: Hypercalcemia On: 69-Ray-374262:27 Request Vitamin D Hydroxy (08688)Indication: Osteopenia On: 37-Xjp-447978:34 Request Metabolic Panel, Basic (67049)Indication: Hyperkalemia On: 79-Cmd-464333:04 Request Comments: 1 week LIPID PANEL (08039)Indication: Mixed dyslipidemia On: 45-Zrz-829818:34 Request TSH (29458)Indication: Essential hypertension with goal blood pressure less than 130/80 On: 95-Hqq-458003:34 Request CBC WITH MANUAL DIFF (30344)Indication: Essential hypertension with goal blood pressure less than 130/80 On: 04-Nfi-880849:34 Request METABOLIC PANEL, COMPREHENSIVE (53309)Indication: Abnormal glucose tolerance test On: 77-Miv-595855:34 Request PT/INR, Office (26794)Indication: Atrial fibrillation On: :55 Request PT/INR, Office (68228)Indication: Atrial fibrillation On: 7-Sim-606865:36 Request PT (Prothrobim Time) (37248)Indication: Atrial fibrillation On: :58 Request METABOLIC PANEL, COMPREHENSIVE (58781)Indication: Essential hypertension with goal blood pressure less than 130/80 On: :09 Request CBC WITH MANUAL DIFF ([id number])Indication: Essential hypertension with goal blood pressure less than 130/80 On: 34-Anm-073797:09 Request MICROALBUMIN: CREATININE RATIO ([id number]) AND ([id number])Indication: Abnormal glucose tolerance test On: :09 Request HEPATIC FUNCTION PANEL ([id number]) On: 09-Eyo-552416:07 Request LIPID PANEL ([id number])Indication: Mixed dyslipidemia On: :07 Request PT/INR, Office ([id number])Indication: Atrial fibrillation On: 23-Vos-189007:19 Request Comments: done>Wf. PT/INR, Office ([id number])Indication: Atrial fibrillation On: 98-Osq-072952:30 Request METABOLIC PANEL, COMPREHENSIVE ([id number])Indication: Essential hypertension with goal blood pressure less than 130/80 On: 68-Sob-266297:34 Request CBC WITH MANUAL DIFF ([id number])Indication: Essential hypertension with goal blood pressure less than 130/80 On: 10-Yfg-217393:34 Request HEPATIC FUNCTION PANEL ([id number])Indication: Mixed dyslipidemia On: 37-Lhk-271331:34 Request LIPID PANEL ([id number])Indication: Mixed dyslipidemia On: 42-Dab-160533:34 Request LIPID PANEL ([id number])Indication: Mixed dyslipidemia On: 18-Skc-550068:51 Request URINALYSIS W/O MICRO ([id number])Indication: Essential hypertension with goal blood pressure less than 130/80 On: 54-Boo-539800:51 Request TSH ([id number])Indication: Essential hypertension with goal blood pressure less than 130/80 On: 11-Gbx-127364:51 Request CBC WITH MANUAL DIFF ([id number])Indication: Essential hypertension with goal blood pressure less than 130/80 On: 31-Kwd-273036:51 Request METABOLIC PANEL, COMPREHENSIVE ([id number])Indication: Essential hypertension with goal blood pressure less than 130/80 On: 59-Ptc-269872:51 Request TSH ([id number])Indication: Essential hypertension with goal blood pressure less than 130/80 On: 69-Wof-237780:44 Request METABOLIC PANEL, COMPREHENSIVE ([id number])Indication: Essential hypertension with goal blood pressure less than 130/80 On: 49-Yqb-217152:44 Request CBC WITH MANUAL DIFF ([id number])Indication: Essential hypertension with goal blood pressure less than 130/80 On: 79-Mok-012962:44 Request MICROALBUMIN URINE QUANT ([id number])Indication: Abnormal glucose tolerance test On: :59 Request METABOLIC PANEL, COMPREHENSIVE ([id number])Indication: Abnormal glucose tolerance test On: :57 Request CBC WITH MANUAL DIFF ([id number])Indication: Abnormal glucose tolerance test On: :57 Request LIPID PANEL ([id number])Indication: Mixed dyslipidemia On: :56 Request HEPATIC FUNCTION PANEL ([id number])Indication: Mixed dyslipidemia On: :56 Request HEPATIC FUNCTION PANEL ([id number])Indication: Mixed dyslipidemia On: :11 Request LIPID PANEL ([id number])Indication: Mixed dyslipidemia On: 55-Qyz-976760:11 Request Planned Encounters Medical; 3 Month FU - On: 10-Sep-2018 9:15 [facility] Sara Swartz CNP, CNP, Mary E Planned Procedures Aerosol Treatment ([id number])By: On: 08-Aug-2017 Intent Kaykay Layne Comments: Exp wheeze still heard after aerosol treatment-better air exchange though. Solu- Medrol Injection, 125mg On: 08-Aug-2017 Intent ([id number])By: Kaykay Layne Comments: lot [id number] mgleft gm IMas, RECEIVING MANAGER Rocephin Injection, 2 Gram On: 06-Aug-2017 Intent ([id number])By: Kaykay Layne CHEST XRAY, PA & LATERAL On: 06-Aug-2017 Intent ([id number])By: Kaykay Layne Aerosol Treatment ([id number])By: On: 06-Aug-2017 Intent Kaykay Layne RIGHT BREAST ULTRASOUND ([id number])By: On: 26-Jul-2017 Intent Sara Swartz CNP, CNP, Mary E SCREENING DIGITAL TOMOSYNTHESIS OF On: 20-May-2017 Intent BREAST ([id number])By: Sara Swartz CNP, CNP, Mary E Flu Vaccine (Quadrivalent) On: 20-May-2017 Intent 26101Va: Sara Swartz CNP Comments: Lot:[id number]:11/2017Dose:0.5mLRoute:IMSite:L DltdGiven By:mlVIS signed Sara HENRY MAMMOGRAM, SCREENING, BOTH BREAST On: 26-Jun-2016 Intent ([id number])By: Jacinto Sheehan MD DEXA SCAN AXIAL SKELETON On: 27-Mar-2016 Intent ([id number])By: Jacinto Sheehan MD Ultrasound - LiverBy: Jarad RUIZ, On: 19-Dec-2015 Intent Brittany Caro PNEUM VAC ADLT/IMUMNOSPR, On: 05-Jul-2015 Intent SBC/INTRM ([id number])By: Raghu Downing Comments: PNEUMOlot:[id number]:1*13*17site:LT deltoidroute:IMdose:.5mlDEMICK, SMA MAMMOGRAM, SCREENING, BOTH BREAST On: 15-Jun-2015 Intent ([id number])By: Brittany Abraham DO Cartoid DopplerBy: Brittany Abraham DO On: 15-Jun-2015 Intent A Flu Vaccine (Quadrivalent) On: 15-Jun-2015 Intent 63039Lk: Brittany Abraham DO Comments: Lot #:[id number] date: 01/2016Amount given:prefilled syringeSite given:L Dltd, IMGiven by: AYAKA Morris and ABN signed ADMINISTRATION OF INFLUENZA VIRUS On: 15-Jun-2015 Intent VACCINE ([id number])By: Brittany Abraham DO Overnight Pulse OX ([id number])By: Jarad On: 18-Mar-2015 Intent Brittany RUIZ PFT - CompleteBy: Brittany Abraham DO On: 18-Mar-2015 Intent Radiology - Knee - Right - Weight On: 28-Jun-2014 Intent BearingBy: Brittany Abraham DO Radiology - Knee - Left - Weight On: 28-Jun-2014 Intent BearingBy: Brittany Abraham DO Prevnar 13 ([id number])By: Jarad RUIZ, On: 08-Jun-2014 Intent Brittany Caro Comments: [id number] arm, IMMegan MAMMOGRAM, SCREENING, BOTH BREAST On: 08-Jun-2014 Intent ([id number])By: Brittany Abraham DO Comments: end jul Ultrasound - LiverBy: Jarad RUIZ, On: 08-Dec-2013 Intent Brittany Caro Inhaler Demonstration ([id number])By: On: 20-Nov-2013 Intent Tia HENRY, Magaly Tia HENRY, Sara Mc Aerosol Treatment ([id number])By: Tia On: 20-Nov-2013 Intent Sara HENRY E Sara Swartz CNP Radiology - ChestBy: Miltongordo CARL, On: 04-Nov-2013 Intent Sara Bear CNP Comments: To be Done satNovember 18 Aerosol Treatment ([id number])By: Tia On: 03-Nov-2013 Intent Sara HENRY CNP, Mary E Radiology - ChestBy: Tia HENRY, On: 03-Nov-2013 Intent [facility] Bear CNP Comments[facility] Eprescribed prescriptions On: 08-Sep-2013 Intent ([id number])By: Ariane Hartman MAMMOGRAM, SCREENING, BOTH BREASTS On: 01-May-2013 Intent ([id number])By: Brittany Abraham DO Comments: jul DXA, BONE DENSITY, AXIAL SKELETON On: 01-May-2013 Intent ([id number])By: Brittany Abraham DO Comments: jul FLU VAC, SPLIT, >3 YEARS, On: 01-May-2013 Intent INTRAMUSC ([id number])By: Minnie, Comments: Lot #:[id number] date:mount given:0.5mlRoute: IMSite given: L dltdVIS and ABN signedGiven by: LILY Payton ADMINISTRATION OF INFLUENZA VIRUS On: 01-May-2013 Intent VACCINE (G0008)By: Ariane Hartman Eprescribed prescriptions On: 01-May-2013 Intent ([id number])By: Ariane Hartman Eprescribed prescriptions On: 30-Jan-2013 Intent ([id number])By: Ariane Hartman Eprescribed prescriptions On: 31-Oct-2012 Intent ([id number])By: Ariane Hartman Eprescribed prescriptions On: 28-Jul-2012 Intent ([id number])By: Ariane Hartman MAMMOGRAM, SCREENING, BOTH BREASTS On: 07-Jul-2012 Intent ([id number])By: Brittany Abraham DO Eprescribed prescriptions On: 07-Apr-2012 Intent (G8553)By: Ariane Hartman TDAP VACCINE >7 IM ([id number])By: On: 03-Dec-2011 Intent Ariane Hartman Comments: Lot:[id number]:07/12/13Amt:prefilledRoute:IMSite:left deltGiven By: THERESA Hinson Doppler Ultrasound OtherBy: Fast On: 03-Dec-2011 Intent Brittany RUIZ Comments: both legs stat call wet read Breast Screening - BilateralBy: On: 08-Jun-2011 Intent Brittany Abraham DO FLU VAC, SPLIT, >3 YEARS, On: 05-Jun-2011 Intent INTRAMUSC ([id number])By: Minnie, Comments: Lot #:[id number] date:mount given:0.5mlRoute: IMSite given:left deltGiven by: LILY Payton ADMINISTRATION OF INFLUENZA VIRUS On: 05-Jun-2011 Intent VACCINE (G0008)By: Ariane Hartman Eprescribed prescriptions On: 14-Feb-2011 Intent (G8553)By: Brittany Abraham DO IMMUNIZ ADMNIN, 1 VAC, SNGL/COMBO On: 30-Nov-2010 Intent ([id number])By: Mona Merritt LPN Comments: Lot #[id number]-01/02/12Site- left arnDose 0.7given by:Eveline ZOSTER VACC, [place] (62669)By: René On: 30-Nov-2010 Intent Mona CARDENAS ADMINISTRATION OF INFLUENZA VIRUS On: 23-May-2010 Intent VACCINE (G0008)By: Ailyn Jones RN FLU VAC, SPLIT, >3 YEARS, On: 23-May-2010 Intent INTRAMUSC ([id number])By: Robert ROYAL, Comments: Lot #: [id number] date: mount given: 0.5 mlRoute: IMSite given: left deltoidGiven by: LELE Nguyen DXA, BONE DENSITY, AXIAL SKELETON On: 09-May-2010 Intent ([id number])By: Brittany Abraham DO Comments: nov MAMMOGRAM, SCREENING, BOTH BREASTS On: 09-May-2010 Intent ([id number])By: Brittany Abraham DO Comments: end jun Doppler Ultrasound OtherBy: [place] On: 27-Dec-2009 Intent Sara HENRY E Tia HENRY, Sara Mc Comments: left leg, today, call wet read Radiology - Foot - LeftBy: [place] On: 27-Dec-2009 Intent Sara HENRY E Tia HENRY, Sara Mc Comments: today call wet read MAMMOGRAM, SCREENING, BOTH BREASTS On: 24-Jun-2009 Intent ([id number])By: Maral Krishnan Inhaler Demo ([id number])By: Shelton RUIZ, On: 09-Jun-2009 Intent [facility] - Chest- PA and LatBy: On: 09-Jun-2009 Intent Chikis Peoples DO Aerosol Treatment ([id number])By: On: 09-Jun-2009 Intent Chikis Peoples DO Comments: less irritablilty Wax Currettes ([id number])By: Shelton On: 09-Jun-2009 Intent Chikis RUIZ Comments: tolerated well - clean -currette used Ear Irrigation (85877)By: Shelton On: 09-Jun-2009 Intent Chikis RUIZ Comments: pt tolerated well Spirometry (02502)By: Shelton RUIZ On: 09-Jun-2009 Intent Chikis Comments: poor effort started to have coughing fit FLU VAC, SPLIT, >3 YEARS, On: 19-May-2009 Intent INTRAMUSC ([id number])By: Ailyn Jones RN IMMUNIZ ADMNIN, 1 VAC, SNGL/COMBO On: 19-May-2009 Intent ([id number])By: Ailyn Jones RN Echo CompleteBy: Brittany Abraham DO On: 23-Feb-2009 Intent Echo CompleteBy: Brittany Abraham DO On: 10-Jan-2009 Intent PNEUM VAC ADLT/IMUMNOSPR, On: 02-Aug-2008 Intent SBC/INTRM ([id number])By: Ran, Comments: Lot #[id number] date:mount given:0.5Site given: right deltoidGiven by:Wf. Rios ADMINISTRATION OF PNEUMOCOCCAL On: 02-Aug-2008 Intent VACCINE (G0009)By: Blanca Tong DXA, BONE DENSITY, AXIAL SKELETON On: 06-Apr-2008 Intent (90113)By: Fast DO, Brittany A FLU VAC, SPLIT, >3 YEARS, On: 13-Jun-2007 Intent INTRAMUSC (32593)By: Savannah Vargas IMMUNIZ ADMNIN, 1 VAC, SNGL/COMBO On: 13-Jun-2007 Intent ([id number])By: Savannah Vargas Overnight Pulse Ox([id number])By: On: 05-May-2007 Intent Blanca Tong Echo CompleteBy: Fast DO, Brittany A On: 18-Apr-2007 Intent Overnight Pulse OX (65599)By: Fast On: 18-Apr-2007 Intent DO, Brittany A MAMMOGRAM, SCREENING, BOTH BREASTS On: 14-May-2006 Intent ([id number])By: Jarad DO, Brittany A EKG (19894)By: Fast DO, Brittany A On: 14-May-2006 Intent Echo CompleteBy: Fast DO, Brittany A On: 14-May-2006 Intent Planned Medications INJECTION, CEFTRIAXONE SODIUM, PER 250 MG Ordered: 06-Aug-2017 Pending Kaykay Layne INJECTION, METHYLPREDNISOLONE SODIUM SUCCINATE, UP TO 125 MG Ordered: 08-Aug-2017 Pending Kaykay Layne Instructions Name Dates Details CKD (chronic kidney disease), stage III : DISCONTINUED - CBC, PLATELETS & AUT DIFF (00621) Indication: CKD (chronic kidney disease), stage III CKD (chronic kidney disease), stage III : DISCONTINUED - METABOLIC PANEL, COMPREHENSIVE (03396) Indication: CKD (chronic kidney disease), stage III [...] fibrillation : DISCONTINUED - PT (PROTHROMBIN TIME) (12110) Indication: Atrial fibrillation Atrial fibrillation : DISCONTINUED - PT (PROTHROMBIN TIME) (44230) Indication: Atrial fibrillation Lower GI bleed : DISCONTINUED - CBC, PLATELETS & AUT DIFF (63189) Indication: Lower GI bleed Lower GI bleed : DISCONTINUED - METABOLIC PANEL, COMPREHENSIVE (71192) Indication: Lower GI bleed Diabetes mellitus type [...] : DISCONTINUED - Hemoglobin Glyclated (HGB A1C) (29039) Indication: Diabetes mellitus type II, controlled Osteopenia : DISCONTINUED - Vitamin D Hydroxy (01697) Indication: Osteopenia Essential hypertension with goal blood pressure less than 130/80 : DISCONTINUED - METABOLIC PANEL, COMPREHENSIVE (14330) Indication: Essential hypertension with goal blood pressure less than 130/80 Other chronic nonalcoholic liver disease : DISCONTINUED - YOZUA-YVDENMYFHPA-VBKCS (31226) Indication: 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 : DISCONTINUED - PTT (Activated Partial Thromboplastin Time) (75905) Indication: 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 : DISCONTINUED - PT (PROTHROMBIN TIME) (83622) Indication: Other chronic nonalcoholic liver disease Atrial fibrillation : DISCONTINUED - PT (PROTHROMBIN TIME) (56218) Indication: Atrial fibrillation Atrial fibrillation : DISCONTINUED - PT (PROTHROMBIN TIME) (33768) Indication: Atrial fibrillation Atrial fibrillation : DISCONTINUED - BLD CNT, COMPL CBC W/AUTO DIFF WBC (19035) Indication: Atrial fibrillation Anemia, unspecified : DISCONTINUED - CBC WITH MANUAL DIFF (06490) Indication: Anemia, unspecified Mild vitamin D deficiency : DISCONTINUED - Vitamin D Hydroxy (48215) Indication: Mild vitamin D deficiency Mild vitamin D deficiency : DISCONTINUED - Vitamin D Hydroxy (76401) Indication: Mild vitamin D deficiency Abnormal glucose tolerance test : DISCONTINUED - METABOLIC PANEL, COMPREHENSIVE (29720) Indication: Abnormal glucose tolerance test Abnormal glucose tolerance test : DISCONTINUED - METABOLIC PANEL, COMPREHENSIVE (44804) Indication: Abnormal glucose tolerance test Mixed dyslipidemia : DISCONTINUED - LIPID PANEL (91172) Indication: Mixed dyslipidemia Mixed dyslipidemia : DISCONTINUED - LIPID PANEL (09206) Indication: Mixed dyslipidemia Mixed dyslipidemia : DISCONTINUED - HEPATIC FUNCTION PANEL (15164) Indication: Mixed dyslipidemia Anemia, unspecified : DISCONTINUED - CBC WITH MANUAL DIFF (28248) Indication: Anemia, unspecified Diabetes mellitus type 2, [...] Note for Transition into care: Again to [facility] End: 24-Mar-2018 10:05 n for GI Bleed 03-16-18 Dr. Graham..... Gi doce at [facility] , A pos. on 03-19 Bunm 19 creat 1.53 last hemoglobin on 03-19 discharge date 8.4. Got iron infusion at [facility] and to get on Sat. by Dr. Michelle She wi ll see Dr. Pacheco he is GI at [facility] Mar [address] Graham saw [...] Note for Transition into care: Sent to [facility] for acute blood loss from coumadin, found ulcertations in the duodenum , no dieulofay lesions or AVM's procedue done by An Olmos. Got 2 units FFP and 8 units of blood, at [facility] and 6 more at [facility]. INR was 3.7 and day before 2.1Pt [...] reevaluate ??Asking if still needs to see exhaust and muffler fitter Dr. Jean-Baptisteting periodic infusions and iron supplements, [...] reevaluate Asking if still needs to see exhaust and muffler fitter Dr. Caruso periodic infusions and iron supplementsEncounter [...] for chroni c medical issues: Seeing new materials handler Dr. Merchant Has had iron levels and iron infusions . Asking if still needs to see exhaust and muffler fitter Dr. MccurdyGetting periodic infusions and iron supplements, [...] explosive GI Bleed wten tot ER at [facility] with CBC with hemoglobin of 8.7 then to 7.9 given a unit of blood, See by Dr. Hobbs for lower GI bleed with colonoscopy found bleeding diverticuli . Dr. Anaya hospitalist . Was on coumadin but taken off Encounter Diagnosis: AL (myocardial infarction), Nonsmoker, Lower GI bleed, BMI [...] (276.7), Sepsis, Anemia, unspecified, Iron deficiency anemia, AL (myocardial infarction) [facility] Office Visit [...] patient does not have 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 of process project engineer or living will. The patient has noticed lack of energy. Other providers contributing to the patient's care are personal injury paralegal (Dr. Raymundo), basket sorter (Leslie) and other: (chiropractor- once monthly). 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 The patient has noticed lack of energy. Other providers contributing to the patient's care are personal injury paralegal (Dr. Raymundo) and other: (chiropractor- once monthly). [...] instructions. Current medication use: no eugenia End: 09-Mar-2014 11:53 e effects and compliant [...] instructions. Current medication use: no eugenia End: 07-Jul-2012 16:19 e effects and compliant [...] to 110's/60's). 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 was at [facility] for Heart cath. 07-30-2006). The patient [...] (427.31), Hyperlipidemia, Mixed (272.2), Coronary atherosclerosis of [place] coronary vessel (414.01) [facility] Historical [...]
--- OUTSIDE RECORDS SUMMARY | 2018-11-06 12:05 | XMS RPT_ITS | Continuity of Care Document ---
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 Viral Status: Active Deliveries (Parity) Comments: 1 Status: Active Diabetes mellitus type 2, uncontrolled, without complications (E11.65, 250.02) Comments: HBA1c 6.0(07/04)HBA1c 6.1( Was 6.0 10/04).A1c 5.5 with prn trajentatakes tradjenta 4- 5 X /month when going for a green party and eating sweetsFBS: once in a [...] diet and exercise.Patient has 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 of district attorney and living will.( and daughter) Status: [...] Hypoxia (R09.02, 799.02) Comments: prescribed oxygen by [facility] at discharge, will ask her to [...] GI bleed (K92.2, 578.9) Comments: Admitted to [facility] with hemoglobin, 5.2 got 7 units of blood, was 8.7 on February 10, 2018,8.5 on Holly 18, 2018Admitted to [facility] 03-19-18 with GI bleed last hemoglobin 03-19 is 8.4 Status: Active Lymphedema (I89.0, 457.1) [facility] Status: Active AL (myocardial infarction) (I21.9, [...] 278.01) Comments: 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 [employer] [facility] [facility] [employer] work Status: 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, [...] atreium Left atrium enlargement, Rigoberto sending to [facility] main campus for eval Status: [...] Refills: 0 Ordered:20-May-2017 Tiffanihamiltongordo HENRY Sara Raymond MICROWAVE SUPERVISOR, Sara Mc Start : 20-May-2017 Active Furosemide 40 MG Oral Tablet 1 (one) Tablet daily for 0 days Quantity: 90 {Tablet} Refills: 3 Ordered:06-Mar-2018 Tia MICROWAVE SUPERVISOR, Sara Raymond MICROWAVE SUPERVISOR, Sara Mc Start : 06-Mar-2018 Active HydrALAZINE HCl 25 MG Oral Tablet 1 Tablet bid for 90 days Quantity: 180 {Tablet} Refills: 3 Ordered:10-Jun-2018 Tia CARL Sara Raymond MICROWAVE SUPERVISOR, Sara Mc Start : 10-Jun-2018 Active LANCETS (Miscellaneous) 1 (one) Misc daily for 0 days Quantity: 100 {Misc} Refills: 3 Ordered:31-Oct-2012 Ariane Hartman Start : 28-Jul-2012 Active Comments:Reli-On Lancets Magnesium Oxide 400 (240 Mg) MG Oral Tablet 1 (one) Tablet qd for 0 days Quantity: 60 {Tablet} Refills: 4 Ordered:31-Dec-2016 Tia CARL Sara Raymond MICROWAVE SUPERVISOR, Sara Mc Start : 31-Dec-2016 Active Metoprolol Tartrate 100 MG Oral Tablet 1 (one) Tablet bid for 90 days Quantity: 180 {Tablet} Refills: 3 Ordered:16-Apr-2018 Tia CARL Sara Raymond MICROWAVE SUPERVISOR, Sara Mc Start : 16-Apr-2018 Active Multivitamins [...] days Quantity: 60 {Tablet} Refills: 0 Ordered:10-Jun-2018 Tai HENRY, Sara Raymond CNP, Sara Mc Start : 10-Jun-2018 Active Comments:when on furosemide Pravastatin Sodium 80 MG Oral Tablet 1 (one) Tablet qd for 90 days Quantity: 90 {Tablet} Refills: 2 Ordered:16-Apr-2018 Tia HENRY, Sara Raymond CNP, Sara cM Start : 16-Apr-2018 Active RELION ULTIMA TEST [...] Allergy 32 MCG/ACT Nasal Suspension 2 (two) [place] In each nostril Daily for 1 days [...] Quantity: 30 {Tablet} Refills: 0 Ordered:01-May-2011 Tia MICROWAVE SUPERVISOR, Sara Raymond MICROWAVE SUPERVISOR, Sara Mc Start : 01-May-2011 End : 01-May-2011 Discontinued CO-Q 10 [place]-3 Fish Oil Oral Capsule 1 (one) Capsule [...] 20-May-2017 End : 10-Jun-2018 Discontinued VITAMIN D, [id number] (Oral Capsule) 1 (one) Capsule q week for 0 days Quantity: 12 {Capsule} Refills: 0 Ordered:03-Feb-2010 Ariane Hartman Start : 03-Feb-2010 End : 31-Aug-2011 Discontinued Comments:This order discontinued per [facility]. VYTORIN, 10-20MG (Oral Tablet) 1 Tablet QD [...] Visit Report Result: Comments: See Note; NOTES: [facility] [place] [address] OFFICE VISIT Date of Service: 05/27/18 1342 MR#: [id number] Acct: [id number] Name: GABBI ROLLE Rep #: [id number] : 1945 From: Halley Khan MD Age/Sex: [...] GI bleed and was urgently transferred to [facility] where she underwent a nuclear medicine [...] GI blood loss Despite oral iron supplementation (assisted), . Patient was transfused with packed red [...] Q4H PRN PRN 01/03/18 [Combivent Respimat Inhal [place]] Furosemide [Lasix] 40 mg PO BID 01/15/18 Primary Care Provider: Sara Swartz Refer [facility] Provider: Halley Khan MD 05/27/18 1411 <Electronically signed by Halley Khan MD> Date Halley Khna MD Cosigner Signature: Date (if applicable) CC: 26-May-2018 Cardiology Visit Report Result: Comments: See Note; NOTES: [facility] [address] [place] [address] OFFICE VISIT Date of Service: 05/26/18 MR#: [id number] Acct: [id number] Name: GABBI ROLLE Rep #: [id number] : 1945 Provider: Niraj Raymundo MD Age/Sex: 73/F Location: [facility] Status: Signed HPI HPI Chief Complaint: Follow [...] syncopal episodes. She continues to see the boat person for follow-up of her blood work. She [...] Confirmed 05/26/18] Ipratropium/Albuterol Sulfate [Combivent Respimat Inhal [place]] 2 puff IH Q4H PRN PRN 01/03/18 [...] PFSH Medical History Atherosclerotic heart disease of tribal coro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 pectoris (Chronic) Chronic [...] watchman device as well 6. Atherosclerosis of tribal coronary artery of tribal heart without angina pectoris I25.10 [facility]: 6; 04/10/17 Plan She has minimal atherosclerotic [...] N18.3 Plan She does have evidence of film processor karrie kidney disease as noted above with [...] possible. Plan Detail Follow Up 3 Months (char puller) Coding Level of Care Code Off vis,est,level 5 Diagnoses Nonrheumatic aortic (valve) stenosis I35.0 Nonrheumatic mitral (valve) insufficiency I34.0 Othe r secondary pulmonary hypertension I27.29 Essential hypertension I10 Hypertension type: essential hypertension Chronic atrial fibrillation I48.2 Atherosclerosis of tribal coronary artery of tribal heart without angina pectoris I25.10 [place] vs. transplanted heart: tribal heart CKD (chronic kidney disease), stage III N18.3 Anemia, unspecified type D64.9 Anemia type: unspecified type Coding Level of C are Code Off vis,est,level 5 Diagnoses Nonrheumatic aortic (valve) stenosis I35.0 Nonrheumatic mitral (valve) insufficiency I34.0 Other secondary pulmonary hypertension I27.29 Essential hypertension I1 0 Hypertension type: essential hypertension Chronic atrial fibrillation I48.2 Atherosclerosis of tribal coronary artery of tribal heart without angina pectoris I25.10 [place] vs. transplanted heart: [place] ve heart CKD (chronic kidney disease), stage III N18.3 Anemia, unspecified type D64.9 Anemia type: unspecified type 05/26/18 1541 <Electronically signed by Niraj Raymundo MD> Date Niraj Raymundo MD Cosigner Signature: Date (if applicable) CC: Sara Swartz DANIELE 23-May-2018 Echo Transesophageal (YOUNG) Result: Comments: See Note; NOTES: [facility] Cardiovascular Services [address] [place] [address] Echo Transesophageal (YOUNG) 05/23/18 0924 MR#: [id number] Acct: [id number] Name: GABBI GATES Rep #: [id number] : 1945 73 From: Niraj Raymundo MD Attending Dr: Niraj Raymundo MD Status: REG CLI Ordering Dr: Niraj Raymundo MD Date: 05/23/18 Location: [facility] Sex: F C Admitted: Reason For Study: Aortic Stenosis Medication YOUNG probe passed with minimal difficulty. No complications were noted. [place] Topical [place] given X4 metered doses orally. Versed 2 [...] Date Niraj Raymundo MD CC: Sara caro HEATER OPERATOR HELPER; Niraj Raymundo MD Date Dictated: 05/23/18 0924 Date Transcribed: 05/23/181511 Waiter And Cashier: Signed 16-May-2018 12 Lead EKG performed by ABHAY Result: Comments: See Note; NOTES: [facility] [address] [place] [address] 12 Lead EKG performed by ABHAY 05/16/18 0957 MR#: [id number] Acct: [id number] Name: GABBI RODAS Rep #: [id number] : 1945 72 From: Niraj Raymundo MD Attending Dr: Niraj Raymundo MD Status: DEP AMB Ordering Dr: Niraj Raymundo MD Date: 05/16/18 Location: [facility] Sex: F C Admitted: ORDER # : [id number] BMS/12 Lead EKG performed by [facility] Possible atrial fibrillation Low voltage -possible pulmonary disease. ABNORMAL 05/19/18 0730 <Electronically signed by Niraj Raymundo MD> John e Niraj Raymundo MD CC: Sara Swartz NP Date Dictated: 05/16/18956 Date Transcribed: 05/16/18956 Waiter And Cashier: CO Signed 03-May-2018 Echocardiogram Complete Result: Comments: See Note; NOTES: [facility] Cardiovascular Services [address] [place] [address] Echo Complete 05/02/18 1405 MR#: [id number] Acct: [id number] Name: GABBI ROLLE Rep #: [id number] : 1945 72 From: Niraj Raymundo MD [...] ____ Niraj Raymundo MD CC: Sara Swartz HEATER OPERATOR HELPER; Niraj Raymundo MD Date Dictated: 05/02/18 1405 Date Transcribed: 05/03/18 1436 Waiter And Cashier: Signed 29-Apr-2018 Oncology Visit Report Result: Comments: See Note; NOTES: [facility] [address] [place] [address] OFFICE VISIT Date of Service: 04/29/18 1417 MR#: [id number] Acct: [id number] Name: GABBI ROLLE Rep #: [id number] : 1945 From: Halley Khan MD Age/Sex: [...] GI bleed and was urgently transferred to [facility] where she underwent a nuclear medicine [...] GI blood loss Despite oral iron supplementation (assisted), . Patient was transfused with packed red [...] Q4H PRN PRN 01/03/18 [Combivent Respimat Inhal [place]] Furosemide [Lasix] 40 mg PO BID 01/15/18 Primary Care Provider: Sara Swartz Referring Provider: Halley Khan MD 2429 <Electronically signed by Halley Khan MD> Date Halley Khan MD Cosigner Signature: Date (if applicable) CC: 29-Apr-2018 Cardiology Visit Report Result: Comments: See Note; NOTES: [facility] [address] [place] [address] OFFICE VISIT Date of Service: 04/29/18 MR#: [id number] Acct: [id number] Name: GABBI ROLLE Rep #: [id number] : 1945 Provider: Niraj Raymundo MD Age/Sex: 72/F Location: [facility] Status: Signed [facility] Chief Complaint: Follow up Details: GABBI ROLLE, [...] syncopal episodes. She continues to see the boat person for follow-up of her blood work. Her [...] Confirmed 04/29/18] Ipratropium/Albuterol Sulfate [Combivent Respimat Inhal [place]] 2 puff IH Q 4H PRN PRN [...] PO PRN PRN 04/29/18 [History Confirmed 04/29/18] [facility] Medical History Atherosclerotic heart disease of tribal zita 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 pectoris (Chronic) [...] vessel or lesion type , unspecified whether tribal or transplanted heart I25.10 Plan She does [...] above. Plan Detail Follow Up 4 Months ([facility]) Coding Level of Care Code Off vis,est,level 5 Diagnoses Chronic atrial fibrillation I48.2 Essential hypertension I10 Hypertension type: essential hypertension Coronary artery disease, angina p resence unspecified, unspecified vessel or lesion type, unspecified whether tribal or transplanted heart I25.10 Coronary Disease-Associated Artery/Lesion type: unspecified vessel or lesion type [place] v s. transplanted heart: unspecified whether tribal or transplanted heart Associated angina: angina presence [...] unspecified vessel or lesion type, unspecified whether tribal or transplanted heart I25.10 Coronary Disease-Associated Artery/Lesion type: unspecified vessel or lesion type [place] vs. transplanted heart: unspecified whether tribal or transplanted heart Associated angina: angina presence unspecified Nonrheumatic aortic (valve) stenosis I35.0 Other secondary pulmonary hypertension I27.29 Gastrointestinal hemorrhage, unspeci fied gastrointestinal hemorrhage type K92.2 GI bleed type/associated pathology: unspecified gastrointestinal hemorrhage type 04/29/18 1355 <Electronically signed by Niarj Raymundo MD> Da te Niraj Raymundo MD Cosigner Signature: Date (if applicable) CC: Sara Swartz NP 02-Apr-2018 Oncology Visit Report Result: Comments: See Note; NOTES: [facility] [address] [facility] [place] [address] OFFICE VISIT Date of Service: 04/02/18 1329 MR#: [id number] Acct: [id number] Name: GABBI ROLLE Rep #: [id number] : 1945 From: Halley Khan MD Age/Sex: [...] GI bleed and was urgently transferred to [facility] where she underwent a nuclear medicine [...] GI blood loss Despite oral iron supplementation (superintendent container terminal), . Patient was transfused with packed red [...] Q4H PRN PRN 01/03/18 [Combivent Respimat Inhal [place]] Furosemide [Lasix] 40 mg PO BID 01/15/18 Primary Care Provider: Sara Swartz Referring Provider: Halley olivares MD 04/02/18 1419 <Electronically signed by Halley Khan MD> Date Halley Khan MD Cosigner Signature: Date __ (if applicable) CC: 05-Mar-2018 Oncology Visit Report Result: Comments: See Note; NOTES: [facility] [address] [place] [address] OFFICE VISIT Date of Service: 03/05/18 1431 MR#: [id number] Acct: [id number] Name: GABBI ROLLE Rep #: [id number] : 1945 From: Halley Khan MD Age/Sex: [...] GI bleed and was urgently transferred to [facility] where she underwent a [facility] medicine GI blood loss imaging followed by [...] Dr. Hobbs, ) despite oral iron supplementation (superintendent container terminal) . Patien t was transfused with packed [...] sa Referring Provider: Halley Khan MD 03/05/18 1330 <Electronically signed by Halley Khan MD> Date Halley yee Signature: Date (if applicable) CC: 27-Feb-2018 12 Lead Electrocardiogram Result: Comments: See Note; NOTES: [facility] Cardiovascular Services [address] [place] [address] 12 Lead EKG 02/23/18 1015 MR#: [id number] Acct: [id number] Name: GABBI ROLLE Rani p #: [id number] : 1945 72 From: Saleem Zavala MD [...] Abnormal ECG Confirmed by SALEEM ZAVALA MD ([id number]), city editor JOSE GUADALUPE ROLLEETTE ([id number]) on 02/27/2018 1:03:39 PM Referred By: Sara Swartz Confirmed By:SALEEM ZAVALA MD 02/27/18 1303 Date __ Saleem Zavala MD CC: Sara Swartz NP; Nelson Soria MD Signed 23-Feb-2018 Emergency Department Summary Result: Comments: See Note; NOTES: [facility] Medical Records Department [address] [place] [address] Emergency Department Summary 02/23/18 1009 MR#: [id number] Acct: [id number] Name: GABBI ROLLE Rep #: [id number] : 1945 72 From: Nelson Soria MD [...] recently hospitalized about 3 weeks ago at [facility] for GI bleed. She was seen here initially, and was found to be significantly anemic with a supra therapeutic INR. She was started on a Protonix drip. S he underwent a bleeding scan which showed 2 areas of bleeding from the duodenum and the ascending colon. Given her multiple comorbidities, she was transferred to the ICU at [facility]. While there, patient was transfused. She was [...] based on her recent hospitalization at [facility] and multiple comorbidities, it was thought that she would best be served back at a tertiary facility. Patient was started on a Protonix drip given history of duodenal ulcer and bleeding. The patie nt was discussed with Dr. Rowe at [facility] who excepted the patient transfer. She will be transferred to the intensive care unit. Treatment Plan: [] Disposition: Transfer Impression: 1. GI bleed 2. Symptomatic anemia This note was generated with Ecast dictation software. It may contain incorrect words, [...] problems, contact your Primary Care Provider. Call [facility] ([phone]) or report to the closest Emergency Room. Call 911 if necessary. 02/23 1228 <Electronically signed by Nelson Soria MD> Date Nelson Soria MD Cosigner Signature (If Indicated): Date CC: Sara Swartz NP 23-Feb-2018 Chest 1 View (Portable) Result: Comments: See Note; NOTES: [facility] Imaging Services [address] [place] [address] Chest 1 View (Portable) MR#: [id number] Acct: [id number] Name: GABBI ROLLE Rep #: [id number] : 1945 F 72 From: Heriberto Dickey PCP: Sara Swartz NP Status: REG ER Study: Chest 1 View (Portable) Date of Exam: 02/23/18 Exam# [id number] Ordering Dr: Nelson Soria MD STUDY: X-RAY [...] CC: Sara Swartz NP; Nelson Soria MD Waiter And Cashier: Signed 06-Feb-2018 12 Lead Electrocardiogram Result: Comments: See Note; NOTES: [facility] Cardiovascular Services [address] [place] [address] 12 Lead EKG 02/04/18 1427 MR#: [id number] Acct: [id number] Name: GABBI ROLLE Re p #: [id number] : 1945 72 From: Niraj Raymundo MD [...] ECG Confirmed by RIGOBERTO BALDWIN, NIRAJ ([id number]), city editor JONATHON ROLLE ([id number]) on 02/06/2018 9:00:22 AM Referred By: SAMMIE Confirmed By:NIRAJ RAYMUNDO MD 02/06/18 0900 Date Niraj Raymundo MD CC: Sara Swartz NP; Hayde Ruvalcaba DO Signed 04-Feb-2018 Emergency Department Summary Result: Comments: See Note; NOTES: [facility] Medical Records Department [address] [place] [address] Emergency Department Summary 02/04/18 1225 MR#: [id number] Acct: [id number] Name: GABBI ROLLE Rep #: [id number] : 1945 72 From: Hayde Ruvalcaba DO [...] is pe nding Treatment Plan: [Transfer to [facility]]. I discussed case with senior patrol agent who accepted transfer of the patient. I did give patient 5 mg of vitamin K subcu. Disposition: [Transfer] Impre ssion: Upper GI bleed and lower GI bleed [] This note was generated with JustRight Surgicalation software. It may contain incorrect words, spelling, [...] your Primary Care Provider. Call [facility] ([phone]) or report to the closest Emergency Room. Call 911 if necessary. 02/04/18 1715 <Electronically signed by Hayde Ruvalcaba DO> Date Hayde Ruvalcaba DO Cosigner Signature (If Indicated): Da te CC: Sara Swartz NP 04-Feb-2018 GI Bleed Scan Result: Comments: See Note; NOTES: [facility] Imaging Services [address] [place] [address] GI Bleed Scan MR#: [id number] Acct: [id number] Name: GABBI ROLLE Rep #: [id number] : 1945 F 72 From: Manuel Montoya MD PCP: Sara Swartz NP Status: REG ER Study: GI Bleed Scan Date of Exam: 02/04/18 Exam# [id number] Ordering Dr: Hayde Ruvalcaba DO NM GI [...] , NM/GI Bleed Scan CC: Sara Swartz HEATER OPERATOR HELPER; Hayde Ruvalcaba DO Waiter And Cashier: Signed 29-Jan-2018 Oncology Visit Report Result: Comments: See Note; NOTES: [facility] [address] [place] [address] OFFICE VISIT Date of Service: 01/29/18 1339 MR#: [id number] Acct: [id number] Name: GABBI ROLLE Rep #: [id number] : 1945 From: Halley Khan MD Age/Sex: [...] consider capsule study) despite oral iron supplementation (assisted) . Patient was transfused with packed red [...] puff IH DAILY 01/03/18 [Combivent Respimat Inhal [place] ] Furosemide [Lasix] 40 mg PO BID 01/15/18 Primary Care Provider: Sara Swartz Referring Provider: Halley Khan MD 01/29/18 9829 <Electronically signed by Halley Khan MD> John e Halley Khan MD Cosigner Signature: Date (if applicable) CC: Sara Swartz 16-Jan-2018 Surgery Visit Report Result: Comments: See Note; NOTES: [facility] [address] [place] [address] OFFICE VISIT Date of Service: 01/15/18 MR#: [id number] Acct: [id number] Name: GABBI ROLLE Rep #: [id number] : 1945 Provider: Bo Madrid MD Age/Sex: 72/F Location: [facility] Status: Signed Intake Intake Visit Reasons: F/U [...] Confirmed 01/08/18] Ipratropium/Albuterol Sulfate [Combivent Respimat Inhal [place]] 1 puff IH DAILY 01/03/18 [History Confirmed 01/08/18] Furosemide [Lasix] 40 mg PO BID 01/15/18 [History Confirmed 01/15/18] PFSH Medical History Atherosclerotic heart disease of tribal coronary artery with out angina pectoris (Chronic) [...] no longer needed. Bo Madrid MD Pager: [facility] [address] [place] [address], [address] [place] [address] Office: Fax: Coding Level of Care Code Global Post Op Diagnoses Encounter for insertion of venous access port Z45.2 01/16/18 0936 <Electronically signed by Bo Madrid MD> D ate Bo Madrid MD Cosigner Signature: Date (if applicable) CC: Sara Swartz NP 08-Jan-2018 Operative Report Result: Comments: See Note; NOTES: [facility] Medical Records Department [address] [place] [address] [place] [address] Operative Report 01/08/18 1157 MR#: [id number] Acct: [id number] Name: FINA ROLLE Rep #: [id number] : 1945 72 From: Bo Madrid MD PCP: Sara Swartz NP Status: REG SDC Y Location: [place] [address] Problem List (1) Encounter for insertion of venous access port Status: [place] (2) Anemia Status: Chronic Qualifiers: Anemia type: [...] x-ray will be obtained. Grafts/Implants Used: 8 [place] PowerPort and right IJ 01/08/18 1158 <Electronically signed by Bo Madrid MD> Date __ Bo Madrid MD CC: Sara Swartz NP; Bo Madrid MD Signed 08-Jan-2018 CXR for Line Placement Result: Comments: See Note; NOTES: [facility] Imaging Services [address] [place] [address] CXR for Line Placement MR#: [id number] Acct: [id number] Name: GABBI ROLLE Rep #: [id number] : 1945 F 72 From: Irvin Cho MD PCP: Sara Swartz NP Status: REG [facility] Study: CXR for Line Placement Date of Exam: 01/08/18 Exam# [id number] Ordering Dr: Bo Madrid MD STUD Y: [...] Irvin Cho MD at 12:57 EDT Tel [phone], Service support , CC: Sara Swartz NP; Bo Madrid MD Waiter And Cashier: Signed 08-Jan-2018 Discharge Instruction Result: Comments: See Note; NOTES: [facility] Medical Records Department [address] [place] [address] Instructions for Home/Discharge Instructions 01/08/18 1155 MR#: [id number] Acct: [id number] Name: GABBI ROLLE Rep #: [id number] : 1945 72 From: Bo Madrid MD PCP: Tia SANABRIA, Sara Status: REG [facility] Discharge Diet: No Restrictions - Pain medication [...] 11/29/17 Ipratropium/Albute rol Sulfate [Combivent Respimat Inhal [place]] 1 puff IH DAILY 01/03/18 Primary Care Physician: Sara Swartz [Primary Care Provider] - Please Follow Up With: Bo Madrid MD When: call tomorrow to make 2 week follow up appt [phone] 01/08/18 1156 <Electronically signed by Bo Madrid MD> Date Bo Madrid MD CC: Sara Swartz NP 03-Jan-2018 Surgery Visit Report Result: Comments: See Note; NOTES: [facility] [address] [place] [address] OFFICE VISIT Date of Service: 01/03/18 MR#: [id number] Acct: [id number] Name: GABBI ROLLE Alexandro Rep #: [id number] : 1945 Provider: Bo Madrid MD Age/Sex: 72/F Location: [facility] Status: Signed Intake Vital Signs01/03/18 Height 5 ft 7 in 01/03/18 Weight: 378 lb 9 oz Body Mass Index (BMI) 59.3 Intake Visit Reasons: Port Placement Chief Complaint: port consult Heater Helper Forge Required: No Is patient in pain?: No [...] Confirmed 01/03/18] Ipratropium/Albuterol Sulfate [Combivent Respimat Inhal [place]] 1 puff IH 01/03/18 [History Confirmed 01/03/18] Is last menstrual p eriod known: No Post menopausal: Yes Patient : No PFSH Medical History Atherosclerotic heart disease of tribal coro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 pect veronika (Chronic) [...] the day of. Bo Madrid MD Pager: [facility] [address] [place] [address], [address] [place] [address] Office: Coding Level of Care Code Off vis,new,level 3 Diagnoses Encounter for insertion of venous access port Z45.2 8 1517 <Electronically signed by Bo Madrid MD> Date Bo Madrid MD Cosigner Signature: Date (if applicable) CC: Sara Swartz HEATER OPERATOR HELPER; Halley Khan MD 01-Jan-2018 Oncology Visit Report Result: Comments: See Note; NOTES: [facility] [address] [place] [address] OFFICE VISIT Date of Service: 01/01/18 1254 MR#: [id number] Acct: [id number] Name: GABBI ROLLE Rep #: [id number] : 1945 From: Halley Khan MD Age/Sex: [...] consider capsule study) despite oral iron supplementation (assisted) . Patient was transfused with packed red [...] (Obl/Decub/A/L) Result: Comments: See Note; NOTES: [facility] Imaging Services [address] [place] [address] Special CXR (Obl/Decub/A/L) MR#: [id number] Acct: [id number] Name: GABBI ROLLE Rep #: [id number] : 1945 F 72 From: Geovanni Roper MD PCP: aSra Swartz NP Status: REG CLI Study: Special CXR (Obl/Decub/A/L) Date of Exam: 12/23/17 Exam# [id number] Ordering Dr: Carlos Nelson MD STUDY: X-RAY CHEST REASON FOR EXAM: Female, 72 years old. Dyspnea TECHNIQUE: Bilateral decubitus. COMPARISON: Radiographs of the same date.. FINDINGS: On the l eft there is a small layering pleural effusion. On the right no significant free- flowing fluid. Electronically Signed: Geovanni Roper MD at 16:00 EDT , Service support 08-26 [phone], RAD/Special CXR (Obl/Decub/A/L) CC: Sara Swartz NP; Carlos Nelson MD Waiter And Cashier: Signed 23-Dec-2017 Special CXR (Obl/Decub/A/L) Result: Comments: See Note; NOTES: [facility] Imaging Services [address] [place] [address] Special CXR (Obl/Decub/A/L) MR#: [id number] Acct: [id number] Name: GABBI ROLLE Rep #: [id number] : 1945 F 72 From: Geovanni Roper MD PCP: Sara Swartz NP Status: REG CLI Study: Special CXR (Obl/Decub/A/L) Date of Exam: 12/23/17 Exam# [id number] Ordering Dr: Carlos Nelson MD STUDY: X-RAY [...] CC: Sara Swartz NP; Carlos Nelson MD Waiter And Cashier: Signed 23-Dec-2017 Chest PA and Lateral Result: Comments: See Note; NOTES: [facility] Imaging Services [address] [place] [address] Chest PA and Lateral MR#: [id number] Acct: [id number] Name: GABBI ROLLE Rep #: [id number] : 1945 F 72 From: Geovanni Roper MD PCP: Sara Swartz NP Status: REG CLI Study: Chest PA and Lateral Date of Exam: 12/23/17 Exam# [id number] Ordering Dr: Carlos Nelson MD STUDY: X-RAY [...] , Service support , CC: Sara Swartz HEATER OPERATOR HELPER; Carlos Nelson MD Waiter And Cashier: Signed 06-Dec-2017 Oncology Visit Report Result: Comments: See Note; NOTES: [facility] [place] [address] OFFICE VISIT Date of Service: 12/05/17 1029 MR#: [id number] Acct: [id number] Name: GABBI ROLLE Rep #: [id number] : 1945 From: Halley Khan MD Age/Sex: [...] consider capsule study) despite oral iron supplementation (assisted) . Patient was transfused with packed red [...] (Portable) Result: Comments: See Note; NOTES: [facility] Imaging Services [address] [place] [address] Chest 1 View (Portable) MR#: [id number] Acct: [id number] Name: GABBI ROLLE Rep #: [id number] : 1945 F 72 From: Norah Arreaga MD PCP: Sara Swartz NP Status: REG ER Study: Chest 1 View (Portable) Date of Exam: 11/29/17 Exam# [id number] Ordering Dr: Gabi Gardner MD STUDY: X-R [...] , Service support , CC: Sara Swartz HEATER OPERATOR HELPER; Gabi Gardner MD Waiter And Cashier: Signed 22-Nov-2017 12 Lead Electrocardiogram Result: Comments: See Note; NOTES: [facility] Cardiovascular Services [address] [place] [address] 12 Lead EKG 11/18/17 1440 MR#: [id number] Acct: [id number] Name: GABBI ROLLE Alexandro Saravia p #: [id number] : 1945 72 From: Niraj Raymundo MD [...] Abnormal ECG Confirmed by RIGOBERTONIRAJ ANNE MD ([id number]), city editor JONATHON ROLLE ([id number]) on 11/22/2017 12:57:07 PM Referred By: JOO Confirmed By:NIRAJ RAYMUNDO MD 11/22/17 1257 Date Niraj Raymundo MD CC: Sara Swartz NP; Ariane Lakhani MD Signed 18-Nov-2017 Emergency Department Summary Result: Comments: See Note; NOTES: [facility] Medical Records Department [address] [place] [address] Emergency Department Summary 11/18/17 1735 MR#: [id number] Acct: [id number] Name: GABBI ROLLE Rep #: [id number] : 1945 72 From: Ariane Lakhani MD [...] weeks to see benefit. 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 It may contain incorrect words, [...] your Primary Care Provider. Call [facility] ([phone]) or report to the closest Emergency Room. Call 911 if necessary. 11/18/171747 <Electronica lly signed by Ariane Lakhani MD> Date Ariane Lakhani MD Cosigner Signature (If Indicated): Date CC: Sara Swartz HEATER OPERATOR HELPER 18-Nov-2017 Discharge Instruction Result: Comments: See Note; NOTES: [facility] Medical Records Department [address] [address] Discharge Instruction 11/18/171739 MR#: [id number] Acct: [id number] Name: GABBI ROLLE Rep #: [id number] : 1945 72 From: Ariane Lakhani MD [...] your Primary Care Provider. Call [facility] ([phone]) or report to the closest Emergency Room. Call 911 if necessary. 11/18/17 1743 <Electronically signed by Ariane Lakhani MD> Date Ariane Lakhani MD Cosigner Signature (If Indicated): Date CC: Sara Swartz NP 18-Nov-2017 Chest PA and Lateral Result: Comments: See Note; NOTES: [facility] Imaging Services [address] [place] [address] Chest PA and Lateral MR#: [id number] Acct: [id number] Name: GABBI ROLLE Rep #: [id number] : 1945 F 72 From: Aaron Kenyon MD PCP: Sara Swartz NP Status: REG ER Study: Chest PA and Lateral Date of Exam: 11/18/17 Exam# [id number] Ordering Dr: Ariane Lakhani MD STUDY: X-RAY [...] , Service support , CC: Sara Swartz HEATER OPERATOR HELPER; Ariane Lakhani MD Waiter And Cashier: Signed 04-Nov-2017 Oncology Visit Report Result: Comments: See Note; NOTES: [facility] [address] [place] [address]. [place] [address] OFFICE VISIT Date of Service: 11/04/17 1252 MR#: [id number] Acct: [id number] Name: GABBI ROLLE Rep #: [id number] : 1945 From: Halley Khan MD Age/Sex: [...] with Dr. 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 This note was generated with Ecast dictation software. It may contain incorrect words, [...] Visit Report Result: Comments: See Note; NOTES: [facility] [address] [place] [address]. [address] [place] [address] OFFICE VISIT Date of Service: 09/18/17 MR#: [id number] Acct: [id number] Name: GABBI ROLLE Rep #: [id number] : 1945 Provider: DANIELE Figueredo Age/Sex: 72/F Location[place] [facility] Status: Signed HPI 4 M FU: Details: GABBI ROLLE, is a 72 F who presents to the office today for a [facility] outpatient follow-up. Patient has a [...] radial Intake Visit Reasons: 4 M FU Heater Helper Forge Required: No Accompanied by: None Is patient [...] PFSH Medical History Atherosclerotic heart disease of tribal c oro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 pectoris (Chronic) [...] affect Assessment AND Plan 1. 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 Follow Up 6 Months ([facility] [employer] SPECIALIST) Coding Level of Care Code Off vis,est,level 3 Diagnoses Atherosclerosis of tribal coronary artery of tribal heart without angina pectoris I25.10 [place] vs. 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 transplanted heart: tribal heart Chronic atrial fibrillation I48.2 Iron deficiency anemia, unspeci fied iron deficiency anemia type D50.9 Anemia type: iron deficiency Iron deficiency anemia type: unspecified iron deficiency Other secondary pulmonary hypertension I27.29 Nonrheumatic aortic (valve) jamie nosis I35.0 Essential hypertension I10 Hypertension type: essential hypertension Mixed hyperlipidemia E78.2 Hyperlipidemia type: mixed hyperlipidemia 09/18/17 1515 <Electronically signed by Mendez Figueredo HEATER OPERATOR HELPER-C> Date Lazaro GARCIAC 09/20/17 1531<Electronically signed by Niraj Raymundo MD> Cosigner Signature: Date ____ (if applicable) Niraj Raymundo MD CC: Sara Swartz NP 06-Aug-2017 Chest PA and Lateral Result: Comments: See Note; NOTES: [facility] Imaging Services [address] [place] [address] Chest PA and Lateral MR#: [id number] Acct: [id number] Name: GABBI ROLLE Rep #: [id number] : 1945 F 72 From: Ariane Crook MD PCP: Sara Swartz NP Status: REG CLI Study: Chest PA and Lateral Date of Exam: 08/06/17 Exam# [id number] Ordering Dr: Kaykay Layne HEATER OPERATOR HELPER-Cassie STUDY: X-RAY C HEST REASON FOR EXAM: [...] Crook MD at 17:23 EST Tel Direct: [phone], Service support [phone] [phone], CC: Sara Swartz NP; HEATER OPERATOR HELPER-C Kaykay Layne Waiter And Cashier: Signed 30-Jul-2017 Breast Limited Unilateral Result: Comments: See Note; NOTES: [facility] Imaging Services [address] [address] Breast Limited Unilateral MR#: [id number] Acct: [id number] Name: GABBI ROLLE Rep #: [id number] : 1945 F 72 From: Irvin Cho MD PCP: Sara Swartz NP Status: REG CLI Study: Breast Limited Unilateral Date of Exam: 07/30/17 Exam# [id number] Ordering Dr: Sara Swartz STUDY: UL TRASOUND [...] Irvin Cho MD at 12:42 EST Tel [phone], Servic e support , CC: Sara Swartz NP Waiter And Cashier: Signed 23-Jul-2017 SCREENING MAMM (CAD), BILAT Result: Comments: See Note; NOTES: [facility] Imaging Services [address] [place] [address] SCREENING MAMM (CAD), BILAT MR#: [id number] Acct: [id number] Name: GABBI ROLLE Rep #: [id number] : 1945 F 72 From: Irvin Cho MD PCP: Sara Swartz NP Status: REG CLI Study: SCREENING MAMM (CAD), BILAT Date of Exam: 07/23/17 Exam# [id number] Ordering Dr: Sara Swartz MAMMO GRAPHY - [...] delay biopsy of a clinically suspicious abnormality. [id number] El ectronically Signed: Irvin Cho MD at 9:57 EST Tel [phone], Service support , CC: Sara Swartz NP Waiter And Cashier: Signed 10-May-2017 History and Physical Exam Result: Comments: See Note; NOTES: [facility] Medical Records Department [address] [facility] [place] [address] History and Physical 05/10/17 1126 MR#: [id number] Acct: [id number] Name: Alvina ROLLE Rep #: [id number] : 1945 71 From: Halley Khan MD [...] iron but tends to recur. Power of Reel Operator: Yes Living Will: Yes Health History: Past [...] Hemoptysis Gastrointestinal:: Reports: Hematochezia, - - Periodic PA bleed, red no melena No reflux symptoms. [...] Lateral Result: Comments: See Note; NOTES: [facility] Imaging Services [address] [place] [address] Chest PA and Lateral MR#: [id number] Acct: [id number] Name: GABBI ROLLE Rep #: [id number] : 1945 F 71 From: Ariane Crook MD PCP: Sara Swartz Status: REG CLI Study: Chest PA and Lateral Date of Exam: 03/26/17 Exam# [id number] Ordering Dr: Niraj Raymundo MD STUDY: X-RAY [...] Ariane Crook MD at 20:49 EDT Tel [phone], Service support , CC: Sara Swartz; Niraj Raymundo MD Waiter And Cashier: Signed 05-Mar-2017 Venous Duplex Lower Extremity Result: Comments: See Note; NOTES: [facility] Cardiovascular Services [address] [place] [address] Venous Duplex US, Unilateral 03/05/17 1427 MR#: [id number] Acct: [id number] Name: GABBI MCGOVERN Rep #: [id number] : 1945 71 From: Francisco Ji MD Attending Dr: Heron Hobbs Status: REG CLI Ordering Dr: Heron Hobbs MD Date: 03/05/17 Location: [facility] Sex: F C Admitted: Reason For Study: [...] Date Dictated: 03/05/17 1427 Date Transcribed: 03/05/171601 Waiter And Cashier: Signed 04-Feb-2017 Kidney and Bladder Result: Comments: See Note; NOTES: [facility] Imaging Services [address] [place] [address] Verdana 4d Kidney and Bladder MR#: [id number] Acct: [id number] Name: GABBI ROLLE Rep # : [id number] : 1945 F 71 From: Irvin Galarza DO PCP: Sara Swartz Status: REG CLI Study: Kidney and Bladder Date of Exam: 02/04/17 Exam# [id number] Ordering Dr: Natalia Mccurdy DO STUDY: RENAL ULTRAS OUND - COMPLETE REASON FOR EXAM: Female, 71 years old. Chronic kidney disease stage III TECHNIQUE: Ultrasound evaluation of the kidneys was performed with real-time and static ruggiero-scale imaging. [employer] PARISON: None. FINDINGS: RIGHT KIDNEY: Normal location [...] Irvin Galarza DO at 22:55 EDT Tel [phone], Service support , CC: Sara Swartz; Natalia Mccurdy DO Waiter And Cashier: Signed 09-Dec-2016 Emergency Department Summary Result: Comments: See Note; NOTES: [facility] Medical Records Department [address] [place] [address] Emergency Department Summary MR#: [id number] Acct: [id number] Name: FINA ROLLE Rep #: [id number] : 1945 71 From: Maral Palacios MD [...] Dehydration. Maral Palacios MD T: NTS JOB: [id number] 12/09/16 0728 <Electronically signed by Maral Palacios MD> Date Maral Palacios MD Cosigner Signature (If Indicated ): Date CC: Sara Nixonyany Date Dictated: 12/09/1604 Date Transcribed: 12/09/16703 Waiter And Cashier: Signed 09-Dec-2016 Chest PA and Lateral Result: Comments: See Note; NOTES: [facility] Imaging Services [address] [place] [address] Verdana 4d Chest PA and Lateral MR#: [id number] Acct: [id number] Name: GABBI ROLLE Rep #: [id number] : 1945 F 71 From: Aaron Kenyon MD PCP: Sara Swartz Status: REG ER Study: Chest PA and Lateral Date of Exam: 12/09/16 Exam# [id number] Ordering Dr: Maral Palacios MD STUDY: X-RAY [...] Tel , Service support , Fa x [phone] CC: Sara Swartz; Maral Palacios MD Waiter And Cashier: Signed 10-Sep-2016 Stress Test Echo w/o Contrast Result: Comments: See Note; NOTES: [facility] Cardiovascular Services [address] [place] [address] Verdana 4d Stress Test Echo w/o Contrast MR#: [id number] Acct: [id number] Name: GABBI WAY Rep #: [id number] : 1945 71 From: Niraj Raymundo MD [...] Dictated: 09/10/16 1258 Date Transcribed: 09/10/16 1523 Waiter And Cashier: Signed 27-Jul-2016 Bilat Scrn Digital AND CAD Result: Comments: See Note; NOTES: [facility] Imaging Services [address] [place] [address] Verdana 4d Bilat Scrn Digital AND CAD MR#: [id number] Acct: [id number] Name: GABBI ROLLE Rep #: [id number] : 1945 F 71 From: Irvin Cho MD PCP: Jacinto Sheehan Status: REG CLI Study: Bilat Scrn Digital AND CAD Date of Exam: 07/27/16 Exam# [id number] Ordering Dr: Jacinto Sheehan MAMMOGRAPHY - BILATERAL [...] delay biopsy of a clinically suspicious abnormality. [id number] Electronically Signed: Irvin Cho MD at 10:02 EST Tel [phone], Service support [phone], CC: Jacinto Sheehan Waiter And Cashier: Signed 11-Apr-2016 Dexa Bone Density/Append Skel Result: Comments: See Note; NOTES: [facility] Imaging Services [address] [place] [address] Ajaydamichael 4d Dexa Bone Density/Append Skel MR#: [id number] Acct: [id number] Name: SHYAM ROLLE Rep #: [id number] : 1945 F 70 From: Irvin Cho MD PCP: Jacinto Sheehan Status: REG CLI Study: Dexa Bone Density/Append Skel Date of Exam: 04/11/16 Exam# [id number] Ordering Dr: Jacinto Sheehan STUDY: DUAL ENERGY [...] Irvin Cho MD at 11:29 EDT Tel [phone], Ser vice support [phone], CC: Jacinto Sheehan Waiter And Cashier: Signed 26-Dec-2015 Liver Result: Comments: See Note; NOTES: [facility] Imaging Services [address] [place] [address] Verdana 4d Liver MR#: [id number] Acct: [id number] Name: GABBI ROLLE Rep # : [id number] : 1945 F 70 From: Irvin Cho MD PCP: Brittany Abraham DO Status: REG CLI Study: Liver Date of Exam: 12/26/15 Exam# [id number] Ordering Dr: Brittany Abraham DO STUDY: ABDOMINAL [...] Irvin Cho MD at 12:58 EDT Tel [phone], Service support [phone], CC: Brittany Abraham DO Waiter And Cashier: Signed 25-Jul-2015 Bilat Scrn Digital AND CAD Result: Comments: See Note; NOTES: [facility] Imaging Services [address] [place] [address] Verdana 4d Bilat Scrn Digital AND CAD MR#: [id number] Acct: [id number] Name: GABBI ROLLE Rep #: [id number] : 1945 F 70 From: Irvin Cho MD PCP: Brittany Abraham DO Status: REG CLI Study: Bilat Scrn Digital AND CAD Date of Exam: 07/25/15 Exam# [id number] Therese trujillo Dr: Brittany Abraham DO MAMMOGRAPHY [...] delay biopsy of a clinically suspicious abnormality. [id number] Electronically Signed: Irvin Cho MD at 8:59 EST Tel [phone], Service support [phone], CC: Brittany Abraham DO Waiter And Cashier: Signed 22-Jun-2015 Carotid Duplex Ultrasound Result: Comments: See Note; NOTES: [facility] Cardiovascular Services [address] [place] [address] Carotid Duplex Ultrasound 06/17/15 0851 MR#: [id number] Acct: [id number] Name: GABBI ROLLE Rep #: [id number] : 1945 70 From: Sharath Mortensen MD [...] the left vertebral artery. Procedure Carotid Duplex 17359. The exam was diagnostic. The study was [...] Date Dictated: 06/17/15 0851 Date Transcribed: 06/22/1540 Waiter And Cashier: Signed 24-Mar-2015 Pulmonary Function Report Comp Result: Comments: See Note; NOTES: [facility] Pulmonary Services/Neurology [address] [place] [address] Pulmonary Function Test (Comp) MR#: [id number] Acct: [id number] Name: GABBI WAY Rep #: [id number] : 1945 69 From: Pako Andre MD [...] edema. PAKO ANDRE MD T: NTS JOB: [id number] SPIROMETRY Ref ULN/LLN Pre Pre Post Post [...] Date Dictated: 1554 Date Transcribed: 03/22/15 155 Waiter And Cashier: Signed 11-Mar-2015 Echocardiogram Complete Result: Comments: See Note; NOTES: [facility] Cardiovascular Services [address] [place] [address] Echo Complete 03/11/15 1108 MR#: [id number] Acct: [id number] Name: Alvina ROLLE Rep #: [id number] : 1945 69 From: Niraj Raymundo MD Attending Dr: Niraj Raymundo MD Status: REG CLI Ordering Dr: Niraj Raymundo MD Date: 03/11/15 [facility]: [facility] Sex: F C Admitted: Rita fernandez This [...] Dictated: 03/11/15 1108 Date Transcribed: 03/11/15 1247 Waiter And Cashier: Signed 23-Jul-2014 Suha Terry Digital & CAD Result: Comments: See Note; NOTES: [facility] Imaging Services [address] [place] [address] Breast Imaging Report MR#: [id number] Acct: [id number] Name: GABBI ROLLE Rep #: [id number] : 1945 F 69 From: Irvin Coh MD PCP: Brittany Abraham DO Status: REG CLI Exam# [id number] Ordering Dr: Brittany Abraham DO MAMMOGRAPHY - [...] small lymph nodes. CC: Brittany Abraham DO Waiter And Cashier: Signed 29-Jun-2014 Knee 4 or More Views Result: Comments: See Note; NOTES: [facility] Imaging Services [address] [place] [address] Radiology Report MR#: [id number] Acct: [id number] Name: GABBI ROLLE Rep #: [id number] : 1945 F 69 From: Po Segovia DO PCP: Brittany Abraham DO Status: REG CLI Study: Knee 4 or More Views Date of Exam: 06/29/14 Exam# [id number] Ordering Dr: Brittany Abraham DO STUDY: X-RAY [...] at 6:27 EST Tel , Service support [phone], CC: Brittany Abraham DO Waiter And Cashier: Signed 29-Jun-2014 Knee 4 or More Views Result: Comments: See Note; NOTES: [facility] Imaging Services [address] [place] [address] Radiology Report MR#: [id number] Acct: [id number] Name: GABBI ROLLE Rep #: [id number] : 1945 F 69 From: Po Segovia DO PCP: Brittany Abraham DO Status: REG CLI Study: Knee 4 or More Views Date of Exam: 06/29/14 Exam# [id number] Ordering Dr: Brittany Abraham DO STUDY: X-RAY [...] 6:35 EST Tel , Service horton pport [phone], CC: Brittany Abraham DO Waiter And Cashier: Signed 08-Feb-2014 OT Discharge Summary Result: Comments: See Note; NOTES: [facility] Occupational Therapy [facility] [address] [place] [address]. [address] [place] [address] Fax REHABILITATION SERVIC ES DISCHARGE SUMMARY MR#: [id number] Acct: [id number] Name: GABBI ROLLE Rep #: [id number] : 1945 68 From: Flavia Metz Referring [...] was to receive compression g arments through [facility]. The order was faxed over to them for the compression garments. However, unaware if the patient received those garments. At this time, again the patient was to return fo r followup visits to ensure proper fitting of compression hose. At this time, she has not done so and is discharged. Flavia Metz, OTR/L T: NTS JOB: [id number] <Electronically signed by Flavia Metz > 02/08/14 1513 CC: Signed 22-Dec-2013 Initial Evaluation - OT Result: Comments: See Note; NOTES: [facility] Occupational Therapy [address] [place] [address] Fax [facility] MR#: [id number] Acct: [id number] Name: GABBI ROLLE Rep #: [id number] : 1945 68 From: Flavia Metz Referring DrYuli: Brittany Abraham DO Status: DIS RCR Insurance: M [employer] PART A B Eval Date: [place] DATE OF SERVICE: 12/15/2013 PHYSICIAN: Brittany Abraham [...] understanding. Flavia Metz OTR/L T: NTS JOB: [id number] <Electr onically signed by Flavia Metz > 12/22/13 1311 CC: Signed For Medicare only, by signing this I certify the plan of care. Physicians Signature Date 14-Dec-2013 Liver Result: Comments: See Note; NOTES: [facility] Imaging Services [address] [place] [address] Ultrasound Report MR#: [id number] Acct: [id number] Name: GABBI ROLLE Rep #: [id number] : 1945 F 68 From: Irvin Cho MD PCP: Brittany Abraham DO Status: REG CLI Study: Liver Date of Exam: 12/14/13 Exam# [id number] Ordering Dr: Brittany Abraham DO STUDY: ABDOMINAL [...] Irvin Cho MD at 10:02 EDT Tel [phone], Service support [phone], CC: Brittany Abraham DO Waiter And Cashier: Signed 18-Nov-2013 Chest PA and Lateral Result: Comments: See Note; NOTES: [facility] Imaging Services [address] [place] [address] Radiology Report MR#: [id number] Acct: [id number] Name: GABBI ROLLE Rep #: [id number] : 1945 F 68 From: Irvin Cho MD PCP: Brittany Abraham DO Status: REG CLI Study: Chest PA and Lateral Date of Exam: 11/18/13 Exam# [id number] Ordering Dr: Sara Swartz STUDY: X-RAY CHEST [...] M.D. at 15:41 EDT , Service support [phone], CC: Sara Swartz; Brittany Abraham DO Waiter And Cashier: Signed 03-Nov-2013 Chest PA and Lateral Result: Comments: See Note; NOTES: [facility] Imaging Services [address] [place] [address] Radiology Report MR#: [id number] Acct: [id number] Name: GABBI ROLLE Rep #: [id number] : 1945 F 68 From: Irvin Cho MD PCP: Brittany Abraham DO Status: REG CLI Study: Chest PA and Lateral Date of Exam: 11/03/13 Exam# [id number] Ordering Dr: Brittany Abraham DO STUDY: X- [...] M.D. at 11:18 EDT , Service support [phone], Fax CC: Brittany Abraham DO Waiter And Cashier: Signed 30-Jul-2013 Suha [employer] Result: Comments: See Note; NOTES: [facility] Imaging Services [address] [place] [address] Breast Imaging Report MR#: [id number] Acct: [id number] Name: GABBI ROLLE Rep #: [id number] : 1945 F 68 From: Irvin Cho MD PCP: Brittany Abraham DO Status: REG CLI Exam# [id number] Ordering Dr: Brittany Abraham DO MAMMOGRAPHY - [...] at 8:11 EST Tel , Service support [phone], CC: Brittany Abraham DO Waiter And Cashier: Signed 30-Jul-2013 Dexa Bone Density Study (HP) Result: Comments: See Note; NOTES: [facility] Imaging Services [address] [place] [address] Bone Density Report MR#: [id number] Acct: [id number] Name: GABBI ROLLE Rep #: : 1945 F 68 From: Irvin Cho MD PCP: Brittany Abraham DO Status: REG CLI Study: Dexa Bone Density Study (HP) Date of Exam: 07/30/13 Exam# [id number] Ordering Dr: Brittany Abraham DO STUDY: DUAL [...] M.D. at 9:58 EST , Service support [phone], CC: Brittany Abraham DO Waiter And Cashier: Signed Immunization Name Dates Details Influenza (3 [...] Height 0 in Head Circumference 0.00 cm 24-Csn-070688:15 Temperature 97.6 f Comments: Method: Oral Pulse [...] Description Value Details :34 HgA1C , Office (66202) HgA1C , Office 5.4 % (Normal) Range: 4.6 - 7.1 :34 Blood Glucose , Office (91314) Blood Glucose , Office 145 (Normal) 34-Lra-434642:14 Basic Metabolic Profile (BMP) Comments: [facility] [address] [place], [address] GAP 8 (Normal) Range: 5-15 CO2 28.0 [...] A.D.A. criteria.Please note revised GLUCOSE reference range tsmqsedje45/02/2018. 04-Ajv-872001:14 PTHIN 127.7 pg/mL (Abnormal) Comments: [facility] [address] [place], [id number] Range: 18.4-80.1 45-Zwd-924256:47 Basic Metabolic Profile (BMP) Comments: [facility] [address] [place], [address] GAP 7 (Normal) Range: 5-15 CO2 25.0 [...] A.D.A. criteria.Please note revised GLUCOSE reference range vuyxfofmz21/02/2018. 57-Rfe-937885:47 Renal Profile Comments: [facility] [address] [place], [address] CO2 25.0 mmol/L (Normal) Range: 21.0-32.0 CL [...] A.D.A. criteria.Please note revised GLUCOSE reference range nhwbwuaqx88/02/2018. 67-Tls-788691:46 CBC W/Diff, Automated Comments: Reason for Laboratory Test .[facility] [address] [place], [address] Absolute Lymph 0.69 {X10_3/ul} (Abnormal) Range: 0.83-4.51 [...] 4.2-5.4 WBC 4.6 K/mm3 (Normal) Range: 4.4-11.0 02-Tnv-940208:46 Ferritin Comments: Reason for Laboratory Test .[facility] [address] [place], [place], [address] FERRITIN 55 ng/mL (Normal) Range: 8-252 01-Hye-938857:46 Iron+Iron Binding Capacity Comments: Reason for Laboratory Test .[facility] [address] [place], [address] IRON SATURATION 13.4 % (Abnormal) Range: 15.0-55.0 IRON 47 ug/dL (Abnormal) Range: 50-170 TIBC 350 ug/dL (Normal) Range: 250-450 92-Rjf-468872:45 Partial Thromboplast Time Comments: [place] [address] [place], [address] PTT 44.5 s (Abnormal) Range: 24.1-36.2 36-Bbs-915504:45 Prothrombin Time w/INR Comments: [place] [address] [place], [address] INR 1.2 (Normal) PROTIME 15.0 s (Abnormal) Range: 11.7-14.9 9-Axg-851486:16 Renal Profile Comments: [place] [address] [place], [address] CO2 24.0 mmol/L (Normal) Range: [...] A.D.A. criteria.Please note revised GLUCOSE reference range dggrgveer88/02/2018. 4-Vpc-291352:15 CBC W/Diff, Automated Comments: Reason for Laboratory Test .[facility] [address] [place], [place], [address] Absolute Lymph 0.91 {X10_3/ul} (Normal) Range: 0.83-4.51 [...] 4.2-5.4 WBC 4.2 K/mm3 (Abnormal) Range: 4.4-11.0 2-Llo-659309:15 Ferritin Comments: Reason for Laboratory Test .[facility] [address] [place], [place], [address] FERRITIN 44 ng/mL (Normal) Range: 8-252 9-Hnu-637812:15 Iron+Iron Binding Capacity Comments: Reason for Laboratory Test .[facility] [address]yqyo[address] [place], [place], [phone] IRON SATURATION 11.8 % (Abnormal) Range: 15.0-55.0 IRON 42 ug/dL (Abnormal) Range: 50-170 TIBC 355 ug/dL (Normal) Range: 250-450 51-Uop-626279:22 CBC W/Diff, Automated Comments: Reason for Laboratory Test DRAW BLOODBANK TUBE FOR TYPE AND [facility] [address]vj[address] [place], [place], [address] Absolute Lymph 0.76 {X10_3/ul} (Abnormal) Range: 0.83-4.51 [...] 4.2-5.4 WBC 5.7 K/mm3 (Normal) Range: 4.4-11.0 1-Hsb-997163:39 Renal Profile Comments: [facility] [address] [place], [place], [address] CO2 24.0 mmol/L (Normal) Range: 21.0-32.0 CL [...] A.D.A. criteria.Please note revised GLUCOSE reference range ryiavptpl08/02/2018. 9-Jhd-311010:04 CBC W/Diff, Automated Comments: Reason for Laboratory Test .[facility] [address] [place], [place], [address] Absolute Lymph 0.85 {X10_3/ul} (Normal) Range: 0.83-4.51 [...] 4.2-5.4 WBC 5.4 K/mm3 (Normal) Range: 4.4-11.0 0-Jra-820586:04 Ferritin Comments: Reason for Laboratory Test .[facility] [address] [place], [place], [address] FERRITIN 135 ng/mL (Normal) Range: 8-252 9-Eam-287731:04 Iron+Iron Binding Capacity Comments: Reason for Laboratory Test .[facility] [address] [place], [place], [address] IRON SATURATION 31.9 % (Normal) Range: 15.0-55.0 IRON 117 ug/dL (Normal) Range: 50-170 TIBC 367 ug/dL (Normal) Range: 250-450 28-Tzx-217743:26 CBC W/Diff, Automated Comments: [facility] [address] [place], [place], [address] Absolute Lymph 0.86 {X10_3/ul} (Normal) Range: 0.83-4.51 [...] 4.2-5.4 WBC 5.8 K/mm3 (Normal) Range: 4.4-11.0 37-Vxv-641384:26 Comprehensive Metabolic Profil Comments: [facility] [address]roq[address] [place], [place], [address] GAP 7 (Normal) Range: 5-15 CO2 27.0 [...] A.D.A. criteria.Please note revised GLUCOSE reference range xorcsjise82/02/2018. 68-Lvt-331756:36 Ferritin Comments: Reason for Laboratory Test .[facility] [address] [place], [place], [address] FERRITIN 54 ng/mL (Normal) Range: 8-252 05-Nba-096257:36 Iron+Iron Binding Capacity Comments: Reason for Laboratory Test .[facility] [address]lo[address] [place], [place], [address] IRON SATURATION 12.7 % (Abnormal) Range: 15.0-55.0 IRON 42 ug/dL (Abnormal) Range: 50-170 TIBC 331 ug/dL (Normal) Range: 250-450 10-Hcr-084182:21 CBC-Complete Blood Cnt No Diff Comments: [facility] [address] [place], [place], [address] MPV 10.8 fL (Normal) Range: 6.2-12.0 PLT [...] 4.2-5.4 WBC 6.2 K/mm3 (Normal) Range: 4.4-11.0 6-Bnz-249326:15 CBC W/Diff, Automated Comments: [address] [place], [place], [address] Absolute Lymph 0.79 {X10_3/ul} (Abnormal) Range: 0.83-4.51 [...] 4.2-5.4 WBC 7.0 K/mm3 (Normal) Range: 4.4-11.0 7-Txs-298015:15 Comprehensive Metabolic Profil Comments: [facility] [address] [place], [place], [address] GAP 8 (Normal) Range: 5-15 CO2 21.0 [...] A.D.A. criteria.Please note revised GLUCOSE reference range ffeehhbxy52/02/2018. 4-Qrx-137691:15 Lactic Acid Comments: Yes/No query for Sepsis Lactate Rule [facility] [address] [place], [place], [address] LACTIC ACID 2.1 mmol/L (Abnormal) Range: 0.4-2.0 Comments: Critical Result(s) Called at: 10:59:09 02/23/2018 by: Juve House RN 0-Tlc-539694:15 Partial Thromboplast Time Comments: [address] [place], [address] PTT 36.8 s (Abnormal) Range: 24.1-36.2 1-Eay-457362:15 Prothrombin Time w/INR Comments: [address] [place], [place], [address] INR 1.2 (Normal) PROTIME 15.2 s (Abnormal) Range: 11.7-14.9 9-Yvn-035478:15 Troponin-I Comments: [address] [place], [place], [address] TROPONIN-I < 0.015 ng/mL (Normal) Comments: TROPONIN-I [...] angiographical evidence. PLEASE NOTE: REFERENCE RANGES EDITED 12/30/1717-Feb-20180-Qbs-910691:10 CBC W/Diff, Automated Comments: CMP, CBCD, PT FOR DR BOOKER ARE [facility] [address]cmk[address] [place], [place], [address] Absolute Lymph 0.84 {X10_3/ul} (Normal) Range: 0.83-4.51 [...] 4.2-5.4 WBC 6.6 K/mm3 (Normal) Range: 4.4-11.0 7-Evm-733628:10 Comprehensive Metabolic Profil Comments: CMP, CBCD, PT FOR DR BOOKER ARE FOR DR Sanchesluis [facility] [address] [place], [address] GAP 8 (Normal) Range: 5-15 CO2 25.0 [...] A.D.A. criteria.Please note revised GLUCOSE reference range gnykcktou95/02/2018. 9-Zpz-565645:10 Ferritin Comments: CMP, CBCD, PT FOR DR BOOKER ARE FOR [facility]MELIZ[facility] [address] [place], [address] FERRITIN 60 ng/mL (Normal) Range: 8-252 3-Enz-402246:10 Iron+Iron Binding Capacity Comments: CMP, CBCD, PT FOR DR BOOKER ARE FOR [facility]ILVIOD[facility] [address] [place], [address] IRON SATURATION 13.0 % (Abnormal) Range: 15.0-55.0 IRON 44 ug/dL (Abnormal) Range: 50-170 TIBC 339 ug/dL (Normal) Range: 250-450 1-Sml-290591:10 Prothrombin Time w/INR Comments: CMP, CBCD, PT FOR DR BOOKER ARE FOR [facility]VI[facility] [address] [place], [address] INR 1.2 (Normal) PROTIME 15.3 s (Abnormal) Range: 11.7-14.9 15-Zjl-271871:25 Basic Metabolic Profile (BMP) Comments: [facility] [address] [place], [address] GAP 9 (Normal) Range: 5-15 CO2 [...] A.D.A. criteria.Please note revised GLUCOSE reference range spxxznehu17/02/2018. 39-Xlt-166565:25 CBC W/Diff, Automated Comments: [facility] [address] [place], [address] PATH REV Reviewed (Normal) Comments: Severe Macrocytic [...] 4.2-5.4 WBC 7.5 K/mm3 (Normal) Range: 4.4-11.0 56-Bns-345034:25 Prothrombin Time w/INR Comments: [facility] [address] [place], [place], [address] INR 3.7 (Abnormal) Comments: CRITICAL VALUE VERIFIED. CALLED TO LELE DILL02/04/18 1157 Billie Hays.RESULTS READ BACK BY SAME . PROTIME 37.0 s (Abnormal) Range: 11.7-14.9 21-Bxe-471484:26 Basic Metabolic Profile (BMP) Comments: Send Results To: Gerry Swartz for Laboratory Test CKD, hypokalemiaWParma Community General Hospital [address]jo[address] [place], [place], [address] GAP 8 (Normal) Range: 5-15 CO2 28.0 [...] A.D.A. criteria.Please note revised GLUCOSE reference range ybwhvxsum74/02/2018. 33-Jps-098010:25 CBC W/Diff, Automated Comments: Reason for Laboratory Test .[facility] [address] [place], [place], [address] Absolute Lymph 1.02 {X10_3/ul} (Normal) Range: 0.83-4.51 [...] :25 Ferritin Comments: Reason for Laboratory Test .[facility] [address] [place], [place], [address] FERRITIN 109 ng/mL (Normal) Range: 8-252 45-Sdd-238088:25 Iron+Iron Binding Capacity Comments: Reason for Laboratory Test .[facility] [address] [place], [address] IRON SATURATION 26.7 % (Normal) Range: 15.0-55.0 IRON 92 ug/dL (Normal) Range: 50-170 TIBC 345 ug/dL (Normal) Range: 250-450 3-Hwy-175459:19 HgA1C , Office (75102) HgA1C , Office 5.1 % (Normal) Range: 4.6 - 7.1 5-Oeq-944039:18 Blood Glucose , Office (26507) Blood Glucose , Office 124 (Normal) 21-Jan-20180:00 Fluid/Washing See Note (Normal) Comments: [facility] [address] [place], [place], [address] Comments: Patient: GABBI ROLLE : 1945 (72/F) Acct Num: [id number] Phys: Leslie BALDWIN,Carlos Unit Num: [id number] Loc: US Specimen: [id number] Received: 01/24/18846 Spec Type: Flu id TISSUES TISSUES: THORACIC FLUID CYTOLOGY GROSS Received is 695 ml of laquita cloudy fluid labeled with the patient's name and DOBand designated per the requisition as t horacentesis. Submitted for cytology preparation including cell block. / 01/23/18 TC:5 CPT: 18314, 05670 CYTOLOGY STUDY Slides are reviewed. The specimen [...] Comments: RESULT(S) PREVIOUSLY REPORTED ON MANUAL REQUISITION DURINGDOWNTIME.[facility] [address] [place], [place], [address] PTT 42.2 s (Abnormal) Range: 24.1-36.2 20-Jan-20189:30 Prothrombin Time w/INR Comments: RESULT(S) PREVIOUSLY REPORTED ON MANUAL REQUISITION DURINGDOWNTIME.[facility] [address] [place], [place], [address] INR 1.3 (Normal) PROTIME 16.2 s (Abnormal) Range: 11.7-14.9 70-Xjm-574982:55 Basic Metabolic Profile (BMP) Comments: [facility] [address] [place], [address] GAP 9 (Normal) Range: 5-15 [...] A.D.A. criteria.Please note revised GLUCOSE reference range nriwhcgal05/02/2018. 22-Wic-329019:55 BNP,B-Type NATRIURETIC PEPTIDE Comments: [facility] [address] [place], [place], [address] B-TYPE MARY JO PEP 208.1 pg/mL (Abnormal) Range: 0-100 58-Hpk-497269:55 CBC W/Diff, Automated Comments: [facility] [address] [place], [address] Absolute Lymph 0.56 {X10_3/ul} (Abnormal) [...] Range: 4.4-11.0 :44 Protime w/INR Fingerstick Comments: [facility] LaboratoryPoint of Zdbq[address] [place] [address] INR ISTAT 1.20 (Normal) Comments: Critical Value > 3.5 PROTIME ISTAT 13.7 {SEC} (Normal) Range: 11.9-14.4 Comments: Reference Range 11.9 - 14.4 :43 Bedside Glucose Comments: [facility] LaboratoryPoint of [address] [place] [address] BEDSIDE GLU 147 mg/dL (Abnormal) Range: 70-110 Comments: MANAGEMENT OF PATIENT CARE PER NURSING PROTOCOL 50-Htj-778554:01 CBC W/Diff, Automated Comments: Reason for Laboratory Test .[facility] [address] [place], [address] Absolute Lymph 0.80 {X10_3/ul} (Abnormal) Range: [...] 4.2-5.4 WBC 7.1 K/mm3 (Normal) Range: 4.4-11.0 63-Xqu-500751:01 Comprehensive Metabolic Profil Comments: Reason for Laboratory Test .[facility] [address] [place], [place], [address] GAP 6 (Normal) Range: 5-15 CO2 25.0 [...] criteria.Please note revised GLUCOSE reference range /02/2018. 16-Tfm-911158:01 Erythropoietin Comments: Reason for Laboratory Test .[facility] (refer to report for specific site)refer to report for address and phone number [facility] 557[address] 105.6 m[iU]/mL (Abnormal) Range: 2.6-18.5 Comments: [employer] DxI 800 Immunoassay SystemPerformed at: - Lab[address] [id number] Director: Heron Almonte PhD, Phone: [phone] 70-Zsm-923482:01 Ferritin Comments: Reason for Laboratory Test .[facility] [address] [place], [place], [address] FERRITIN 69 ng/mL (Normal) Range: 8-252 96-Jvt-680131:01 Iron+Iron Binding Capacity Comments: Reason for Laboratory Test .[facility] [address] [place], [place], [address] IRON SATURATION 19.7 % (Normal) Range: 15.0-55.0 IRON 77 ug/dL (Normal) Range: 50-170 TIBC 391 ug/dL (Normal) Range: 250-450 63-Jtr-371520:06 Metabolic Panel, Comprehensive Comments: send to Dr. Mccurdy; PATIENT NOT FASTINGPERFORMED BY: LabCoJianshu Wlqbsr6968 [facility] [id number] (93757) ALT (SGPT) 18 [iU]/L (Normal) Range: 0-32 [...] 8-27 Glucose 114 mg/dL (Abnormal) Range: 65-99 56-Luo-899735:06 TSH (THYROID STIMULATING Comments: send results to Dr. Bowers; PATIENT NOT FASTINGPERFORMED BY: [facility] Dgixbk9032 [facility] [id number] HORMONE) (41731) TSH 3.420 {uIU/mL} (Normal) Range: 0.450-4.500 64-Byi-841633:09 CBC W/Diff, Automated Comments: Reason for Laboratory Test .[facility] [address] [place], [place], [address] SMEAR COMMENT (Normal) Comments: SLIDE SCANNED - [...] 4.2-5.4 WBC 6.9 K/mm3 (Normal) Range: 4.4-11.0 93-Bbv-675919:09 Erythropoietin Comments: Reason for Laboratory Test .[facility] (refer to report for specific site)refer to report for address and phone number ERYTHROP [phone] 51.6 m[iU]/mL (Abnormal) Range: 2.6-18.5 Comments: Vanu DxI 800 Immunoassay SystemPerformed at: [facility] [employer] SoftwareCo[address] [id number] Director: Heron Almonte PhD, Phone: [phone] 68-Wtp-350921:09 Ferritin Comments: Reason for Laboratory Test .[facility] [address] [place], [place], [address] FERRITIN 43 ng/mL (Normal) Range: 8-252 31-Fhx-248542:09 Iron+Iron Binding Capacity Comments: Reason for Laboratory Test .[facility] [address] [place], [place], [address] IRON SATURATION 10.4 % (Abnormal) Range: 15.0-55.0 IRON 56 ug/dL (Normal) Range: 50-170 Comments: Slight Hemolysis, Result may be falsely increased. TIBC 536 ug/dL (Abnormal) Range: 250-450 76-Mnw-253886:09 Retic Panel Comments: Reason for Laboratory Test .[facility] [address] [place], [place], [address] IPF 3.8 % (Normal) Range: 1.0-7.9 Comments: [...] 3.00-15.90 RETIC 5.76 % (Abnormal) Range: 0.5-1.5 93-Efp-869888:55 Basic Metabolic Profile (BMP) Comments: 'TROP' Serial specimen #1, #2, #3, or #4: 1WPar[facility] [address]pmer[address] [place], [place], [address] GAP 9 (Normal) Range: 5-15 CO2 23.0 [...] A.D.A. criteria.Please note revised GLUCOSE reference range fiapwhxmy74/02/2018. 43-Rqb-319560:55 BNP,B-Type NATRIURETIC PEPTIDE Comments: [facility] [address] [place], [address] B-TYPE MARY JO PEP 217.5 pg/mL (Abnormal) Range: 0-100 56-Cjn-413357:55 CBC W/Diff, Automated Comments: [facility] [address] [place], [address] MACROCYTE 1+ (Normal) POLYCHROMASIA 1+ [...] Range: 4.4-11.0 :55 Prothrombin Time w/INR Comments: [facility] [address] [place], [place], [address] INR 2.4 (Normal) PROTIME 26.4 s (Abnormal) Range: 11.7-14.9 66-Ter-478349:55 Troponin-I Comments: 'TROP' Serial specimen #1, #2, #3, or #4: [address] [place] [address] [address] [place], [place], [address] TROPONIN-I < 0.02 ng/mL (Normal) Comments: TROPONIN-I EXPECTED VALUES <0.05 NEGATIVE 0.06 - 0.59 AT RISK OF AL > OR = 0.60 SUGGEST AL 9-Leq-186254:40 Basic Metabolic Profile (BMP) Comments: 'TROP' Serial specimen #1, #2, #3, or #4: [address] [place] [address] [place], [place], [address] GAP 7 (Normal) Range: 5-15 CO2 24.0 [...] A.D.A. criteria.Please note revised GLUCOSE reference range etsolqoym51/02/2018. 1-Xic-661917:40 BNP,B-Type NATRIURETIC PEPTIDE Comments: [facility] [address] [place], [place], [address] B-TYPE MARY JO PEP 226.6 pg/mL (Abnormal) Range: 0-100 3-Yls-012235:40 CBC W/Diff, Automated Comments: [facility] [address]we[address] [place], [place], [address] SMEAR COMMENT SCANNED (Normal) Comments: 1+ ANISOCYTOSIS [...] Range: 4.4-11.0 :40 Prothrombin Time w/INR Comments: [address] [place], [address] INR 2.8 (Normal) PROTIME 29.7 s (Abnormal) Range: 11.7-14.9 3-Brw-076040:40 Troponin-I Comments: 'TROP' Serial specimen #1, #2, #3, or #4: [address] [place], [address] TROPONIN-I < 0.02 ng/mL (Normal) Comments: TROPONIN-I EXPECTED VALUES <0.05 NEGATIVE 0.06 - 0.59 AT RISK OF AL > OR = 0.60 SUGGEST AL 92-Aaw-33949:53 CBC W/Diff, Automated Comments: CMP,LIPID,FERRITIN,IRON,TIBC FOR CIESAReason for Laboratory Test [facility]ADel[facility] [address]xiunncy[address] [place], [place], [address] HYPOCHROMASIA 2+ (Normal) POLYCHROMASIA RARE (Normal) ANISO [...] Comments: CMP,LIPID,FERRITIN,IRON,TIBC FOR Christianoason for Laboratory Test [facility]EMIAWParma [facility] [address]mbc[address] [place], [address] Profil GAP 8 (Normal) Range: 5-15 CO2 24.0 mmol/L (Normal) Range: 21.0-32.0 CL 107 mmol/L (Normal) Range: 98-107 K 4.3 mmol/L (Normal) Range: 3.5-5.1 NA 139 mmol/L (Normal) Range: 136-145 T BILI 0.50 mg/dL (Normal) Range: 0.20-1.00 ALT 17 U/L (Normal) Range: 13-56 Comments: Please note revised ALT reference range zcfbxunrf38/28/2018. ALK P 76 U/L (Normal) Range: 45-117 [...] A.D.A. criteria.Please note revised GLUCOSE reference range ellcelwyb02/02/2018. 15-Mzi-42204:53 Ferritin Comments: CMP,LIPID,FERRITIN,IRON,TIBC FOR CIESAReason for Laboratory Test [facility] [address] [place], [address] FERRITIN 32 ng/mL (Normal) Range: 8-252 :53 Iron+Iron Binding Comments: CMP,LIPID,FERRITIN,IRON,TIBC FOR CIESAReason for Laboratory Test [facility] [address]hem[address] [place], [address] Capacity IRON SATURATION 21.2 % (Normal) Range: 15.0-55.0 IRON 95 ug/dL (Normal) Range: 50-170 TIBC 449 ug/dL (Normal) Range: 250-450 :53 Lipid Profile Comments: CMP,LIPID,FERRITIN,IRON,TIBC FOR [facility]eason for [facility] Test [facility] [address] [place], [address] VLDL 24 mg/dL (Normal) Range: 5-40 [...] mg/dL High Risk :54 Culture, Urine Comments: [facility] [address] [place], [address] CUUR See Note (Normal) Comments: Urine CultureBelow infection level. ORGANISM 1: Mixed Gram Positive OrganismsColony Count 1000-10,000 1-Ifv-119214:54 Urinalysis, Complete Comments: How was Urine Obtained? CLEAN [facility] [address] [place], [address] MUCUS, URINE 0 SEEN {/hpf} [...] COLOR Yellow (Normal) :37 HgA1C , Office (21515) HgA1C , Office 5.5 % (Normal) Range: 4.6 - 7.1 :35 Blood Glucose , Office (93322) Blood Glucose , Office 170 (Normal) 18-Vkm-20772:12 Influenza A&B Viral Comments: PATIENT NOT FASTINGPERFORMED BY: [facility] Jnvges6176 [facility] [id number] Information: SRC:NL Culture (95287) Viral Culture,Rapid,Influenza FLUABN (Normal) Comments: Negative:No Influenza A or B detected. 88-Qgy-420980:40 Rapid Flu (40676 x 2) Influenza A Ag neg (Normal) 13-Doa-062639:16 CBC W/Diff, Automated Comments: Reason for Laboratory Test [facility] [address] [place], [address] ; Dr Khan Absolute Lymph [...] 4.2-5.4 WBC 9.6 K/mm3 (Normal) Range: 4.4-11.0 80-Tpa-966705:16 Ferritin Comments: Reason for Laboratory Test [facility] [address] [place], [address] FERRITIN 33 ng/mL (Normal) Range: 8-252 64-Ibp-148530:16 Iron+Iron Binding Capacity Comments: Reason for Laboratory Test [facility] [address]vey[address] [place], [address] IRON SATURATION 12.8 % (Abnormal) Range: 15.0-55.0 IRON 56 ug/dL (Normal) Range: 50-170 TIBC 436 ug/dL (Normal) Range: 250-450 84-Fcy-045837:16 Retic Panel Comments: Reason for Laboratory Test [facility] [address] [place], [address] IPF 3.1 % (Normal) Range: [...] (Abnormal) Range: 0.5-1.5 :16 HgA1C , Office (41317) Comments: 5.6 HgA1C , Office 5.6 % (Normal) Range: 4.6 - 7.1 :16 Blood Glucose , Office (52099) Blood Glucose , Office 145 (Normal) :22 PT (PROTHROMBIN TIME) (16821) Comments: Standing order; PATIENT NOT FASTINGPERFORMED BY: [id number] BiosciencesFormerly [facility] [id number] Prothrombin Time 11.5 {sec} (Normal) Range: 9.1-12.0 INR 1.1 (Normal) Range: 0.8-1.2 Comments: Reference interval is for non-anticoagulated patients. . Suggested INR therapeutic range for Vitamin K anta gonist therapy: Standard Dose (moderate intensity therapeutic range): 2.0 - 3.0 Higher intensity therapeutic range 2.5 - 3.5 :25 PT (PROTHROMBIN TIME) (00325) Comments: Standing order; PATIENT NOT FASTINGPERFORMED BY: [employer] [id number] [facility] [id number] Prothrombin Time 17.1 {sec} (Abnormal) Range: 9.1-12.0 INR 1.7 (Abnormal) Range: 0.8-1.2 Comments: Reference interval is for non-anticoagulated patients. . Suggested INR therapeutic range for Vitamin K anta gonist therapy: Standard Dose (moderate intensity therapeutic range): 2.0 - 3.0 Higher intensity therapeutic range 2.5 - 3.5 :55 Blood Gases by [facility] Comments: [place] [id number] [place] [address] SO2 ISTAT 95 % (Normal) Range: 95-99 TOTAL CO2 ISTAT 24 mmol/L (Normal) BE ISTAT -2 mmol/L (Normal) HCO3 ISTAT 23.1 mmol/L (Normal) Range: 22-26 PO2 I-STAT 77 {mmHG} (Normal) Range: 75-100 pCO2 - ISTAT 37.5 {mmHg} (Normal) Range: 35-45 pH - I-STAT 7.40 (Normal) Range: 7.35-7.45 BLD GAS TYPE ART (Normal) :35 Venous Blood Gas Comments: [place] [address] [place] [address] ISTAT 25 [...] ANTONIO (Normal) :32 Venous Blood Gas Comments: [place] [address] [place] [address] ISTAT 25 [...] 7.32-7.42 BLD GAS TYPE JUAN ANTONIO (Normal) 5-Vsx-142234:01 Basic Metabolic Profile (BMP) Comments: Order Date: 03/26/17Order Info: [id number] - *BMPComments: Reason:[facility] [address] [place], [place], [id number] GAP 6 (Normal) Range: 5-15 CO2 27.0 [...] HOMEOSTASIS per A.D.A. criteria.; ADDENDA: another doc 2-Mft-551007:01 CBC-Complete Blood Cnt No Diff Comments: Order Date: 03/26/17Order Info: [id number] - *CBC without DiffComments: Reason:[facility] [address] [place], [place], [id number] ; another doc MPV 12.4 fL (Abnormal) [...] 7.6 K/mm3 (Normal) Range: 4.4-11.0 :31 Iron (65305) Comments: PATIENT NOT FASTINGPERFORMED BY: [email or web address] [facility] Szznmh0257 [facility] [id number] Iron, Serum 70 ug/dL (Normal) Range: 27-139 :31 Ferritin (55864) Comments: PATIENT NOT FASTINGPERFORMED BY: [email or web address] [facility] Ggnhla0838 [facility] [id number] Ferritin, Serum 90 ng/mL (Normal) Range: 15-150 :31 Metabolic Panel, Comprehensive Comments: PATIENT NOT FASTINGPERFORMED BY: [email or web address] [facility] Mkabop7492 [facility] [id number] (79467) ALT (SGPT) 16 [iU]/L (Normal) Range: 0-32 [...] Glucose, Serum 109 mg/dL (Abnormal) Range: 65-99 58-Kgn-06459:31 CBC WITH MANUAL DIFF (24741) Comments: PATIENT NOT FASTINGPERFORMED BY: [facility] Rnsxoc1721 [facility] [id number] Immature Grans (Abs) 0.0 {x10E3/uL} Range: 0.0-0.1 [...] sent toHeron Hobbs M.D..PATIENT NOT FASTINGPERFORMED BY: [facility]6370 [facility] [id number] 12:16 Range: 15-150 96-Mgp-347642:16 CBC, PLATELETS & AUT DIFF Comments: A courtesy copy of this report has been sent toHeron Hobbs M.D..PATIENT NOT FASTINGPERFORMED BY: [facility] SoftwareAud[facility] Cmisof2183 [facility] [id number] (89111) Immature Grans (Abs) 0.0 {x10E3/uL} (Normal) Range: [...] 3.77-5.28 WBC 9.1 {x10E3/uL} (Normal) Range: 3.4-10.8 12-Pxd-281081:16 IRON & TOTAL IRON BINDING Comments: A courtesy copy of this report has been sent toHeron Hobbs M.D..PATIENT NOT FASTINGPERFORMED BY: [facility] Tgpxsn9690 [facility] [id number] CAPACITY (14868) Iron Saturation 10 % (Abnormal) Range: 15-55 Iron, Serum 40 ug/dL (Normal) Range: 27-139 UIBC 358 ug/dL (Normal) Range: 118-369 Iron Bind.Cap.(TIBC) 398 ug/dL (Normal) Range: 250-450 35-Hkk-560189:43 Culture, Urine Comments: [facility] [address] [place], [address] CUUR See Note (Normal) Comments: [...] $ <=20 S(NF) indicates non-formulary drug at [facility]. Approval by Infectious Disease Specialist required before non- formulary drugs may be ordered and/or dispensed. 8-Tnj-022738:00 Basic Metabolic Profile (BMP) Comments: [facility] [address] [place], [place], [id number] GAP 10 (Normal) Range: 5-15 CO2 23.0 [...] <126 mg/dLsuggests IMPAIRED HOMEOSTASIS per A.D.A. criteria. 6-Pap-071034:00 CBC W/Diff, Automated Comments: [facility] [address] [place], [address] ; ER Absolute Lymph 1.09 {X10_3/ul} (Normal) [...] 4.2-5.4 WBC 6.5 K/mm3 (Normal) Range: 4.4-11.0 9-Vkq-450541:00 Prothrombin Time w/INR Comments: [facility] [address] [place], [place], [address] INR 1.2 (Normal) PROTIME 14.6 s (Normal) Range: 11.7-14.9 5-Vmm-154265:00 Microscopic Examination Comments: PATIENT WAS FASTINGPERFORMED BY: [facility]CoRobert [facility] at HamiltonOdcsae9163 [facility] [id number] Bacteria Few (Normal) Mucus Threads Present (Normal) Epithelial Cells (non renal) 0-10 {/hpf} (Normal) Range: 0 - 10 RBC 0-2 {/hpf} (Normal) Range: 0 - 2 WBC 0-5 {/hpf} (Normal) Range: 0 - 5 84-Pds-53385:40 Urinalysis, Complete Comments: Order Date: 12/09/16Order Date: 12/09/16How was Urine Obtained? [facility] [address] [place], [place], [address] MUCUS, URINE 0 SEEN {/hpf} (Normal) BACTERIA [...] (Normal) CLARITY Cloudy (Normal) COLOR Yellow (Normal) 64-Qrb-41242:00 Prothrombin Time w/INR Comments: REDRAW. PREVIOUS SPECIMEN REJECTED DUE TOQNS. 12/09/1647 Jessica Allen.REDRAW. PREVIOUS SPECIMEN REJECTED DUE TOQNS. 12/09/1647 Jessica Allen.[facility] [address] [place], [address](396) INR 1.6 (Normal) PROTIME 18.1 s (Abnormal) Range: 11.7-14.9 99-Fds-23843:10 Basic Metabolic Profile (BMP) Comments: 'TROP' Serial specimen #1, #2, #3, or #4: [address] [place] [address] [place], [place], [id number] GAP 11 (Normal) Range: 5-15 CO2 23.0 [...] A.D.A. criteria. :10 BNP,B-Type NATRIURETIC PEPTIDE Comments: [facility] [address] [place], [place], [address] B-TYPE MARY JO PEP 243.7 pg/mL (Abnormal) Range: 0-100 :10 CBC W/Diff, Automated Comments: [facility] [address] [place], [place], [address] SMEAR COMMENT SCANNED (Normal) Comments: LYMPHOPENIA NOTED [...] Serial specimen #1, #2, #3, or #4: [facility] [address]wkuq[address] [place], [place], [address] TROPONIN-I 0.43 ng/mL (Abnormal) Comments: TROPONIN-I EXPECTED VALUES <0.05 NEGATIVE 0.06 - 0.59 AT RISK OF AL > OR = 0.60 SUGGEST AL :02 Lactic Acid Comments: [facility] [address] [place], [place], [address] LACTIC ACID 2.2 mmol/L (Abnormal) Range: 0.4-2.0 79-Yce-899003:45 Rapid Flu (13569 x 2) Comments: Negative Influenza A Ag neg a/b (Normal) 7-Wed-380451:00 MICROALBUMIN: CREATININE RATIO Comments: PATIENT WAS FASTINGPERFORMED BY: [employer]ap70 [facility] [id number] (87901) AND (91541) Microalb/Creat Ratio 29.7 {mg/g_creat} (Normal) Range: 0.0-30.0 Microalbumin, Urine 15.2 ug/mL (Normal) Creatinine, Urine 51.2 mg/dL (Normal) :00 URINALYSIS (60081) Comments: PATIENT WAS FASTINGPERFORMED BY: [employer]6370 [facility] [id number] Microscopic Examination See below: (Normal) Comments: Microscopic was indicated and was performed. Nitrite, Urine Negative (Normal) Urobilinogen,Semi-Qn 0.2 mg/dL (Normal) Range: 0.2-1.0 Bilirubin Negative (Normal) Occult Blood Trace (Abnormal) Ketones Negative (Normal) Glucose Negative (Normal) Protein Negative (Normal) WBC Esterase 2+ (Abnormal) Appearance Clear (Normal) Urine-Color Yellow (Normal) pH 6.0 (Normal) Range: 5.0-7.5 Specific [place] 1.010 (Normal) Range: 1.005-1.030 :00 TSH (95665) Comments: PATIENT WAS FASTINGPERFORMED BY: [facility]6370 [facility] [id number] TSH 3.850 {uIU/mL} (Normal) Range: 0.450-4.500 8-Csh-415418:00 CBC, Platelets & Auto Diff Comments: PATIENT WAS FASTINGPERFORMED BY: [facility]6[address] [facility] [id number] (02426) Immature Grans (Abs) 0.0 {x10E3/uL} (Normal) Range: [...] 3.77-5.28 WBC 8.8 {x10E3/uL} (Normal) Range: 3.4-10.8 9-Zvf-280781:00 Metabolic Panel, Comprehensive Comments: PATIENT WAS FASTINGPERFORMED BY: [facility]6[address] [facility] [id number] (32338) ALT (SGPT) 24 [iU]/L (Normal) Range: 0-32 [...] Glucose, Serum 106 mg/dL (Abnormal) Range: 65-99 66-Jzr-41886:10 CBC W/Diff, Automated Comments: [facility] [address] [place], [place], [address] Absolute Lymph 1.29 {X10_3/ul} (Normal) Range: 0.83-4.51 [...] (Normal) Range: 4.4-11.0 :08 HgA1C , Office (12416) HgA1C , Office 5.5 % (Normal) Range: 4.6 - 7.1 :08 Blood Glucose , Office (02131) Blood Glucose , Office 155 (Normal) 9-Lij-592845:25 BNP,B-Type NATRIURETIC PEPTIDE Comments: [facility] [address] [place], [place], [address] ; another doc B-TYPE MARY JO PEP 147.4 pg/mL (Abnormal) Range: 0-100 :18 HgA1C , Office (47007) HgA1C , Office 6.0 % (Normal) Range: 4.6 - 7.1 :18 Blood Glucose , Office (44555) Blood Glucose , Office 109 (Normal) :21 HgA1C , Office (96884) HgA1C , Office 6.1 % (Normal) Range: 4.6 - 7.1 9-Aug-08306:21 Blood Glucose , Office (67214) Blood Glucose , Office 117 (Normal) 5-Ekw-652900:21 METABOLIC PANEL, Comments: PATIENT NOT FASTINGPERFORMED BY: [employer] [place] [employer] [facility] [id number] Information: [id number] COMPREHENSIVE (87706) ALT (SGPT) 15 [iU]/L (Normal) Range: 0-32 [...] Glucose, Serum 92 mg/dL (Normal) Range: 65-99 6-Nmd-485166:21 Vitamin D Hydroxy (17572) Comments: PATIENT NOT FASTINGPERFORMED BY: [facility] CompetenceRobert Wood Johnson [facility] Hospital at HamiltonSxjeaz6730 [facility] [id number] Vitamin D, 25-Hydroxy 59.7 ng/mL (Normal) Range: 30.0-100.0 Comments: Vitamin D deficiency has been defined by the [place] and an Endocrine Society practice guideline as alevel of serum 25-OH vitamin D less than 20 ng/mL (1,2).The Endocrine Society went on to further define vitamin Dinsufficiency as a level between 21 and 29 ng/mL (2).1. IOM ([place] [employer]). 2010. Dietary reference intakes for calcium and D. [place]: The National Academies Press.2. [place] MF, James MCGOWAN, Dolores MARTINEZ, et al. Evaluation, treatment, and prevention of vitamin D deficiency: an Endocrine Society clinical practice guideline. JCEM. 2010; 96(7):1911-30. -:06 HgA1C , Office (74933) HgA1C , Office 6.0 % (Normal) Range: 4.6 - 7.1 :15 HgA1C , Office (57398) HgA1C , Office 6.4 % (Normal) Range: 4.6 - 7.1 :31 HgA1C , Office (18032) HgA1C , Office 6.0 % (Normal) Range: 4.6 - 7.1 :04 HgA1C , Office (09316) HgA1C , Office 6.0 % (Normal) Range: 4.6 - 7.1 :09 HgA1C , Office (52530) HgA1C , Office 6.0 % (Normal) Range: 4.6 - 7.1 :32 HgA1C , Office (15050) HgA1C , Office 6.2 % (Normal) Range: 4.6 - 7.1 :24 HgA1C , Office (39763) HgA1C , Office 6.2 % (Normal) Range: 4.6 - 7.1 :59 PT (Prothrobim Time) Comments: PATIENT NOT FASTINGPERFORMED BY: [facility] Bqrwza2304 [facility] [id number] Information: [id number] (49972) Prothrombin Time 25.2 {sec} (Abnormal) Range: 9.1-12.0 INR 2.4 (Abnormal) Range: 0.8-1.2 Comments: Reference interval is for non-anticoagulated patients. . Suggested INR therapeutic range for Vitamin K anta gonist therapy: Standard Dose (moderate intensity therapeutic range): 2.0 - 3.0 Higher intensity therapeutic range 2.5 - 3.5 :22 PT (Prothrobim Time) Comments: PATIENT NOT FASTINGPERFORMED BY: [place] [address] [facility] [id number] Information: [id number] (23321) Prothrombin Time 22.4 {sec} (Abnormal) Range: 9.1-12.0 INR 2.2 (Abnormal) Range: 0.8-1.2 Comments: Reference interval is for non-anticoagulated patients. . Suggested INR therapeutic range for Vitamin K anta gonist therapy: Standard Dose (moderate intensity therapeutic range): 2.0 - 3.0 Higher intensity therapeutic range 2.5 - 3.5 59-Aqu-176195:39 HgA1C , Office (46532) HgA1C , Office 6.5 % (Normal) Range: 4.6 - 7.1 20-Xrz-514847:37 PT (Prothrobim Time) Comments: PATIENT NOT FASTINGPERFORMED BY: [place] [address] [facility] [id number] Information: [id number] (45558) Prothrombin Time 20.7 {sec} (Abnormal) Range: 9.1-12.0 INR 1.9 (Abnormal) Range: 0.8-1.2 Comments: Reference interval is for non-anticoagulated patients. . Suggested INR therapeutic range for Vitamin K anta gonist therapy: Standard Dose (moderate intensity therapeutic range): 2.0 - 3.0 Higher intensity therapeutic range 2.5 - 3.5 18-Urb-455043:34 BNTP (22874) Comments: PATIENT NOT FASTINGPERFORMED BY: [place] [address] [facility] [id number] B-Type Natriuretic Peptide 156.2 pg/mL (Abnormal) Range: 0.0-100.0 24-Zit-501888:34 PT (Prothrobim Time) (85556) Comments: PATIENT NOT FASTINGPERFORMED BY: [facility]6370 [facility] [id number] Prothrombin Time 13.1 {sec} (Abnormal) Range: 9.1-12.0 INR 1.3 (Abnormal) Range: 0.8-1.2 Comments: Reference interval is for non-anticoagulated patients. . Suggested INR therapeutic range for Vitamin K anta gonist therapy: Standard Dose (moderate intensity therapeutic range): 2.0 - 3.0 Higher intensity therapeutic range 2.5 - 3.5 89-Lxh-011227:34 CULTURE, SPUTUM (72124) Comments: PATIENT NOT FASTINGPERFORMED BY: [facility]6[address] [facility] [id number] Lower Respiratory Culture Final report (Normal) Result 1 RRF (Normal) Comments: Routine respiratory anisa 69-Tok-253819:20 PT (Prothrobim Time) Comments: PATIENT NOT FASTINGPERFORMED BY: [facility] [facility] [id number] Information: [id number], [id number] (35121) Prothrombin Time 21.0 {sec} (Abnormal) Range: 9.1-12.0 INR 2.0 (Abnormal) Range: 0.8-1.2 Comments: Reference interval is for non-anticoagulated patients. . Suggested INR therapeutic range for Vitamin K anta gonist therapy: Standard Dose (moderate intensity therapeutic range): 2.0 - 3.0 Higher intensity therapeutic range 2.5 - 3.5 50-Tvz-752748:11 PT (Prothrobim Time) Comments: PATIENT NOT FASTINGPERFORMED BY: [facility] [facility] [id number] Information: [id number] (44507) Prothrombin Time 15.3 {sec} (Abnormal) Range: 9.1-12.0 INR 1.5 (Abnormal) Range: 0.8-1.2 Comments: Reference interval is for non-anticoagulated patients. . Suggested INR therapeutic range for Vitamin K anta gonist therapy: Standard Dose (moderate intensity therapeutic range): 2.0 - 3.0 Higher intensity therapeutic range 2.5 - 3.5 :45 HgA1C , Office (24631) HgA1C , Office 6.5 % (Normal) Range: 4.6 - 7.1 :18 PT (Prothrobim Time) Comments: PATIENT NOT FASTINGPERFORMED BY: [facility] [facility] [id number] Information: [id number] (56969) Prothrombin Time 20.0 {sec} (Abnormal) Range: 9.1-12.0 INR 1.9 (Abnormal) Range: 0.8-1.2 Comments: Reference interval is for non-anticoagulated patients. . Suggested INR therapeutic range for Vitamin K anta gonist therapy: Standard Dose (moderate intensity therapeutic range): 2.0 - 3.0 Higher intensity therapeutic range 2.5 - 3.5 :24 HgA1C , Office (89053) HgA1C , Office 6.1 % (Normal) Range: 4.6 - 7.1 :53 HgA1C , Office (31323) HgA1C , Office 6.2 % (Normal) Range: 4.6 - 7.1 :05 CBC WITH MANUAL DIFF Comments: today; PATIENT NOT FASTINGPERFORMED BY: [place] [address] [facility] [id number] Information: [id number] (12566) Hematology Comments: Note: (Normal) Comments: Verified by [...] 3.77-5.28 WBC 9.2 {x10E3/uL} (Normal) Range: 4.0-10.5 93-Ekp-241429:30 HgA1C , Office (50338) HgA1C , Office 6.1 % (Normal) Range: 4.6 - 7.1 63-Plr-429519:33 PT (Prothrobim Time) Comments: PATIENT NOT FASTINGPERFORMED BY: [place] [address] [facility] [id number] Information: [id number] (16868) Prothrombin Time 17.9 {sec} (Abnormal) Range: 9.1-12.0 INR 1.7 (Abnormal) Range: 0.8-1.2 Comments: Reference interval is for non-anticoagulated patients. . Suggested INR therapeutic range for Vitamin K anta gonist therapy: Standard Dose (moderate intensity therapeutic range): 2.0 - 3.0 Higher intensity therapeutic range 2.5 - 3.5 26-Pwg-867320:27 PT (Prothrobim Time) Comments: PATIENT NOT FASTINGPERFORMED BY: [facility] [facility] [id number] Information: [id number] (89575) Prothrombin Time 26.3 {sec} (Abnormal) Range: 9.1-12.0 INR 2.6 (Abnormal) Range: 0.8-1.2 Comments: Reference interval is for non-anticoagulated patients. . Suggested INR therapeutic range for Vitamin K anta gonist therapy: Standard Dose (moderate intensity therapeutic range): 2.0 - 3.0 Higher intensity therapeutic range 2.5 - 3.5 8-Dlt-492821:01 BILAT SCRN DIGITAL & CAD Radiology Report [...] Cho M.D.July 25, 2012 at 11:23:11 AM [id number] Signed GP/GP If you are the referring physician and would like to consult with theradiologist who provided this interpretation, please contact Clinton Ignacio at [phone]. If this radiologist is unavailable, youwill be directed to another radiologist to assist. If you are a patient with a question regarding this report, pleasecontactyour referring physician directly. Professional Interpretation Provided By: [employer], Phone , These documents contain leg ally [...] 07/25/12 1128 Sign by: Irvin Cho MD 42-Hvj-265081:44 HgA1C , Office (41243) HgA1C , Office 6.6 % (Normal) Range: 4.6 - 7.1 :44 Blood Glucose , Office (71893) Blood Glucose , Office 101 (Normal) :02 PT (Prothrobim Time) Comments: standing order; PATIENT NOT FASTINGPERFORMED BY: [facility] SoftwareBr[facility]6[address] [facility] [id number] Information: [id number] (73932) Prothrombin Time 20.6 {sec} (Abnormal) Range: 9.1-12.0 INR 2.0 (Abnormal) Range: 0.8-1.2 Comments: Reference interval is for non-anticoagulated patients. . Suggested INR therapeutic range for Vitamin K anta gonist therapy: Standard Dose (moderate intensity therapeutic range): 2.0 - 3.0 Higher intensity therapeutic range 2.5 - 3.5 57-Wnh-169736:09 HgA1C , Office (47578) HgA1C , Office 6.1 % (Normal) Range: 4.6 - 7.1 02-Otk-34155:00 Prothrombin Time (PT) Comments: PATIENT NOT FASTINGPERFORMED BY: [facility] [facility] [id number] Prothrombin Time 21.7 {sec} (Abnormal) Range: 9.1-12.0 INR 2.1 (Abnormal) Range: 0.8-1.2 Comments: Reference interval is for non-anticoagulated patients. . Suggested INR therapeutic range for Vitamin K anta gonist therapy: Standard Dose (moderate intensity therapeutic range): 2.0 - 3.0 Higher intensity therapeutic range 2.5 - 3.5 :42 PT (PROTHROMBIN TIME) Comments: PATIENT NOT FASTINGPERFORMED BY: [facility] [facility] [id number] Information: [id number] (69987) Prothrombin Time 18.7 {sec} (Abnormal) Range: 9.1-12.0 INR 1.8 (Abnormal) Range: 0.8-1.2 Comments: Reference interval is for non-anticoagulated patients. . Suggested INR therapeutic range for Vitamin K anta gonist therapy: Standard Dose (moderate intensity therapeutic range): 2.0 - 3.0 Higher intensity therapeutic range 2.5 - 3.5 84-Zmf-88680:06 PT (PROTHROMBIN TIME) Comments: PATIENT NOT FASTINGPERFORMED BY: [place] [address] [facility] [id number] Information: [id number] (35788) Prothrombin Time 21.7 {sec} (Abnormal) Range: 9.1-12.0 INR 2.0 (Abnormal) Range: 0.8-1.2 Comments: Reference interval is for non-anticoagulated patients. . Suggested INR therapeutic range for Vitamin K anta gonist therapy: Standard Dose (moderate intensity therapeutic range): 2.0 - 3.0 Higher intensity therapeutic range 2.5 - 3.5 05-Wrj-789732:01 ERYTHROPOIETIN (01250) Comments: PATIENT NOT FASTINGPERFORMED BY: [facility] [facility] [id number] Erythropoietin 38.7 m[iU]/mL (Abnormal) Range: 4.2-27.8 09-Cnw-479395:01 Vitamin D Hydroxy (72873) Comments: PATIENT NOT FASTINGPERFORMED BY: [place] [address] [facility] [id number] Vitamin D, 25-Hydroxy 52.5 ng/mL (Normal) Range: 30.0-100.0 Comments: Vitamin D deficiency has been defined by the [place] and an Endocrine Society practice guideline as alevel of serum 25-OH vitamin D less than 20 ng/mL (1,2).The Endocrine Society went on to further define vitamin Dinsufficiency as a level between 21 and 29 ng/mL (2).1. IOM ([place] [employer]). 2010. Dietary reference intakes for calcium and D. [place]: The National Academies Press.2. [place] MF, James MCGOWAN, Dolores MARTINEZ, et al. Evaluation, treatment, and prevention of vitamin D deficiency: an Endocrine Society clinical practice guideline. JCEM. 2010; 96(7):1911-30. 91-Kig-820304:01 VITAMIN B-12 (CYANOCOBALAMIN) Comments: PATIENT NOT FASTINGPERFORMED BY: [employer]70 [facility] [id number] (99217) Vitamin B12 779 pg/mL (Normal) Range: 211-946 88-Lvu-181504:01 RETICULOCYTE COUNT MANUL Comments: PATIENT NOT FASTINGPERFORMED BY: [employer] Jfqtjj3056 [facility] [id number] (96515) Reticulocyte Count 1.9 % (Normal) Range: 0.5-3.0 66-Ula-316023:01 LDH (LD) (LACTATE DEHYDROGENASE) Comments: PATIENT NOT FASTINGPERFORMED BY: [employer] Wggslz8124 [facility] [id number] (89382) LDH 174 [iU]/L (Normal) Range: 0-214 45-Clu-501886:01 IRON BINDING CAPACITY Comments: PATIENT NOT FASTINGPERFORMED BY: [employer] Wzhwml9898 [facility] [id number] Information: [id number] (TIBC) (95600) Iron Saturation 9 % (Abnormal) Range: 15-55 Iron, Serum 35 ug/dL (Normal) Range: 35-155 UIBC 355 ug/dL (Normal) Range: 150-375 Iron Bind.Cap.(TIBC) 390 ug/dL (Normal) Range: 250-450 51-Tdr-869672:01 FERRITIN (73889) Comments: PATIENT NOT FASTINGPERFORMED BY: [facility] [facility] [id number] Ferritin, Serum 59 ng/mL (Normal) Range: 13-150 :47 HgA1C , Office (41361) HgA1C , Office 6.2 % (Normal) Range: 4.6 - 7.1 :48 Prothrombin Time (PT) Comments: PERFORMED BY: [place] [address] [facility] [id number] Prothrombin Time 20.1 {sec} (Abnormal) Range: 9.1-12.0 Comments: Please note reference interval change INR 1.9 (Abnormal) Range: 0.8-1.2 Comments: Reference interval is for non-anticoagulated patients. . Suggested INR therapeutic range for Vitamin K anta gonist therapy: Standard Dose (moderate intensity therapeutic range): 2.0 - 3.0 Higher intensity therapeutic range 2.5 - 3.5 :56 HgA1C , Office (56308) HgA1C , Office 6.4 % (Normal) Range: 4.6 - 7.1 :56 Blood Glucose , Office (56654) Blood Glucose , Office 111 (Normal) :48 PT (PROTHROMBIN TIME) Comments: PATIENT NOT FASTINGPERFORMED BY: [facility] [facility] [id number] Information: [id number] (38798) Prothrombin Time 28.0 {sec} (Abnormal) Range: 9.1-12.0 Comments: Please note reference interval change INR 2.6 (Abnormal) Range: 0.8-1.2 Comments: Reference interval is for non-anticoagulated patients. . Suggested INR therapeutic range for Vitamin K anta gonist therapy: Standard Dose (moderate intensity therapeutic range): 2.0 - 3.0 Higher intensity therapeutic range 2.5 - 3.5 2-Qim-592443:42 BILAT SCRN DIGITAL & CAD Radiology Report [...] 07/20/11 1305 Sign by: Irvin Cho MD 2-Cos-458829:14 PT (PROTHROMBIN TIME) Comments: PATIENT NOT FASTINGPERFORMED BY: [employer]6370 [employer] BiosciencesFormerly [facility] [id number] Information: [id number] (05407) Prothrombin Time 37.0 {sec} (Abnormal) Range: 9.1-12.0 Comments: Please note reference interval change INR 3.5 (Abnormal) Range: 0.8-1.2 Comments: Reference interval is for non-anticoagulated patients. . Suggested INR therapeutic range for Vitamin K anta gonist therapy: Standard Dose (moderate intensity therapeutic range): 2.0 - 3.0 Higher intensity therapeutic range 2.5 - 3.5 4-Mkq-949984:15 URIC ACID BLOOD (80365) Comments: PATIENT NOT FASTINGPERFORMED BY: [employer] CompetenceRobert Wood Johnson [facility] Hospital at HamiltonAmdjwa0058 [place] cafegiveMaria [facility] [id number] Information: [id number],2ND ORDER Uric Acid, Serum 5.3 mg/dL (Normal) Range: 2.5-7.1 Comments: Therapeutic target for gout patients: <6.0 07-Zkj-697405:26 FECAL OCCULT- Tubes sent home (51080) FECAL OCCULT HGB ASSAY, QUAL, 1-3 SIMULTANEOU negative (Normal) 36-Eoz-378419:37 FERRITIN (60326) Comments: PATIENT NOT FASTINGPERFORMED BY: [employer] Vewwjp8[address] [place] [id number] Ferritin, Serum 109 ng/mL (Normal) Range: 13-150 79-Tdg-586332:37 IRON (06061) Comments: PATIENT NOT FASTINGPERFORMED BY: [employer] [place] [id number] Iron, Serum 46 ug/dL (Normal) Range: 35-155 64-Aze-363527:37 FOLIC ACID SERUM (06458) Comments: PATIENT NOT FASTINGPERFORMED BY: [employer] Odebcl5306 [address] cafegiveNovant Health Medical Park Hospitalin [place] [id number] Folate (Folic Acid), Serum >19.9 ng/mL (Normal) Comments: Indeterminate: 2.2 - 3.0 Deficient: <2.2 58-Eqp-448645:37 RETICULOCYTE COUNT MANUL Comments: PATIENT NOT FASTINGPERFORMED BY: [employer] cafegiveNovant Health Medical Park Hospitalin [place] [id number] (08130) Reticulocyte Count 1.6 % (Normal) Range: 0.5-3.0 81-Khf-487118:37 LDH (LD) (LACTATE DEHYDROGENASE) Comments: PATIENT NOT FASTINGPERFORMED BY: [employer] Ylqxkq[address] [facility] [place] [id number] (36027) LDH 179 [iU]/L (Normal) Range: 0-214 74-Avh-650998:37 VITAMIN B-12 (CYANOCOBALAMIN) Comments: PATIENT NOT FASTINGPERFORMED BY: [employer] Hogicw[address] [facility] [place] [id number] (14380) Vitamin B12 668 pg/mL (Normal) Range: 211-946 63-Ixp-802068:37 TSH (73411) Comments: PATIENT NOT FASTINGPERFORMED BY: LabCoRobert Wood Johnson University Hospital at HamiltonOgqztk5663 [facility] [id number] TSH 2.500 {uIU/mL} (Normal) Range: 0.450-4.500 15-Fcg-771726:37 CBC WITH MANUAL DIFF Comments: PATIENT NOT FASTINGPERFORMED BY: LabCoRobert Wood Johnson University Hospital at HamiltonCfrfne9363 [facility] [id number] Information: [id number] (13225) Immature Grans (Abs) 0.0 {x10E3/uL} (Normal) Range: [...] (Normal) Range: 4.0-10.5 :37 Uric Acid Blood (77711) Comments: PATIENT NOT FASTINGPERFORMED BY: [facility]6[address] [facility] [id number] Uric Acid, Serum 10.0 mg/dL (Abnormal) Range: 2.5-7.1 Comments: Therapeutic target for gout patients: <6.0 :45 Blood Glucose , Office (39954) Blood Glucose , Office 101 (Normal) :45 HgA1C , Office (75171) HgA1C , Office 6.3 % (Normal) Range: 4.6 - 7.1 :25 PT (Prothrobim Time) Comments: Protime/INR Standing Order; PATIENT NOT FASTINGPERFORMED BY: YAO [place] [address] [facility] [id number] Information: [id number] (00214) Prothrombin Time 28.9 {sec} (Abnormal) Range: 8.7-11.5 INR 2.7 (Abnormal) Range: 0.8-1.2 Comments: Reference interval is for non-anticoagulated patients. . Suggested INR therapeutic range for Vitamin K anta gonist therapy: Standard Dose (moderate intensity therapeutic range): 2.0 - 3.0 Higher intensity therapeutic range 2.5 - 3.5 :28 PT (PROTHROMBIN TIME) Comments: PATIENT NOT FASTINGPERFORMED BY: [facility]6370 [facility] [id number] Information: [id number] (26735) Prothrombin Time 24.6 {sec} (Abnormal) Range: 8.7-11.5 INR 2.3 (Abnormal) Range: 0.8-1.2 Comments: Reference interval is for non-anticoagulated patients. . Suggested INR therapeutic range for Vitamin K anta gonist therapy: Standard Dose (moderate intensity therapeutic range): 2.0 - 3.0 Higher intensity therapeutic range 2.5 - 3.5 : Potassium, Serum 5.2 mmol/L (Normal) Comments: PERFORMED BY: YAO [address] [place] [id number] Range: 3.5-5.2 1-Dyd-679368:42 Prothrombin Time (PT) Comments: PERFORMED BY: [facility]6370 [facility] [id number] Prothrombin Time 12.8 {sec} (Abnormal) Range: 8.7-11.5 INR 1.2 (Normal) Range: 0.8-1.2 Comments: Reference interval is for non-anticoagulated patients. . Suggested INR therapeutic range for Vitamin K anta gonist therapy: Standard Dose (moderate intensity therapeutic range): 2.0 - 3.0 Higher intensity therapeutic range 2.5 - 3.5 13-Fjy-962935:08 Prothrombin Time (PT) Comments: PERFORMED BY: [facility]6370 [facility] [id number] Prothrombin Time 19.2 {sec} (Abnormal) Range: 8.7-11.5 INR 1.8 (Abnormal) Range: 0.8-1.2 Comments: Reference interval is for non-anticoagulated patients. . Suggested INR therapeutic range for Vitamin K anta gonist therapy: Standard Dose (moderate intensity therapeutic range): 2.0 - 3.0 Higher intensity therapeutic range 2.5 - 3.5 :19 Vitamin D Hydroxy (72843) Comments: PATIENT WAS FASTINGPERFORMED BY: [facility]6[address] [facility] [id number] Vitamin D, 25-Hydroxy 43.1 ng/mL (Normal) Range: 32.0-100.0 Comments: Effective July 09, 2011 Vitamin D, 25-Hydroxy reference intervals will be changing to 30-100. .Recent studies consider the lower li osbaldo of 32.0 ng/mL to be athreshold for optimal health.Ye JARVIS. J Nutr. 2004;135(2):317-22. :19 MICROALBUMIN: CREATININE RATIO Comments: PATIENT WAS FASTINGPERFORMED BY: [place] [address] [facility] [id number] (53604) AND (80443) Microalb/Creat Ratio 24.6 {mg/g_creat} (Normal) Range: 0.0-30.0 Creatinine, Urine 23.6 mg/dL (Normal) Range: 15.0-278.0 Microalbumin, Urine 5.8 ug/mL (Normal) Range: 0.0-17.0 :19 LIPID PANEL (35792) Comments: PATIENT WAS FASTINGPERFORMED BY: [employer] Ppacal1515 [facility] [id number] LDL/HDL Ratio 1.5 {ratio_units} (Normal) Range: 0.0-3.2 [...] MANUAL DIFF Comments: PATIENT WAS FASTINGPERFORMED BY: Saygus Enfnva5445 [facility] [id number] Information: [id number] CC:[id number] [phone] (67794) Immature Grans (Abs) 0.0 {x10E3/uL} (Normal) Range: [...] COMPREHENSIVE Comments: PATIENT WAS FASTINGPERFORMED BY: [facility]Co Tciohb6735 [facility] [id number]; appt 06/05/11 (60526) ALT (SGPT) 16 [iU]/L (Normal) Range: 0-40 [...] Range: 65-99 :59 Blood Glucose , Office (71483) Blood Glucose , Office 129 (Normal) :04 Prothrombin Time (PT) Comments: PERFORMED BY: YAO FlexiantFormerly [facility] [id number] Prothrombin Time 25.1 {sec} (Abnormal) Range: 8.7-11.5 INR 2.4 (Abnormal) Range: 0.8-1.2 Comments: Reference interval is for non-anticoagulated patients. . Suggested INR therapeutic range for Vitamin K anta gonist therapy: Standard Dose (moderate intensity therapeutic range): 2.0 - 3.0 Higher intensity therapeutic range 2.5 - 3.5 :34 PT (PROTHROMBIN TIME) Comments: PATIENT NOT FASTINGPERFORMED BY: YAO [employer]70 [employer] BiosciencesFormerly [facility] [id number] Information: [id number],NO DRAW FEE 2ND ORD ER (99098) Prothrombin Time 30.5 {sec} (Abnormal) Range: 8.7-11.5 INR 2.9 (Abnormal) Range: 0.8-1.2 Comments: Reference interval is for non-anticoagulated patients. . Suggested INR therapeutic range for Vitamin K anta gonist therapy: Standard Dose (moderate intensity therapeutic range): 2.0 - 3.0 Higher intensity therapeutic range 2.5 - 3.5 :38 Vitamin D Hydroxy (69610) Comments: today and 3 mos; PATIENT NOT FASTINGPERFORMED BY: [employer] EthicsGameFormerly [facility] [id number] Information: [id number] Vitamin D, 25-Hydroxy 56.7 ng/mL (Normal) Range: 32.0-100.0 Comments: Recent studies consider the lower limit of 32.0 ng/mL to be athreshold for optimal health.Ye JARVIS. J Nutr. 2004;135(2):317-22. 98-Gee-655786:00 MICROALBUMIN: CREATININE Comments: PATIENT NOT FASTINGPERFORMED BY: LabSkycrossRobert Wood Johnson University Hospital at HamiltonAtpskw0469 [facility] [id number] Information: [id number] RATIO (63240) AND (46935) Microalb/Creat Ratio 10.0 {mg/g_creat} (Normal) Range: 0.0-30.0 Microalbumin, Urine 4.3 ug/mL (Normal) Range: 0.0-17.0 Creatinine, Urine 43.2 mg/dL (Normal) Range: 15.0-278.0 :32 Blood Glucose , Office (18057) Blood Glucose , Office 137 (Normal) :32 HgA1C , Office (74985) HgA1C , Office 6.1 % (Normal) Range: 4.6 - 7.1 :38 Prothrombin Time (PT) Comments: PERFORMED BY: LabCoAcoma-Canoncito-Laguna Service UnitJjxqdb4779 [facility] [id number] Prothrombin Time 26.7 {sec} (Abnormal) Range: 8.7-11.5 INR 2.5 (Abnormal) Range: 0.8-1.2 Comments: Reference interval is for non-anticoagulated patients. . Suggested INR therapeutic range for Vitamin K anta gonist therapy: Standard Dose (moderate intensity therapeutic range): 2.0 - 3.0 Higher intensity therapeutic range 2.5 - 3.5 :21 HgA1C , Office (43570) HgA1C , Office 6.0 % (Normal) Range: 4.6 - 7.1 :21 Blood Glucose , Office (97798) Blood Glucose , Office 118 (Normal) :10 DEXA BONE DENSITY STUDY (HP) Radiology Report See Note (Normal) Comments: CLINICAL:This is a 65-year-old female patient for post menopausal screening. EXAMINATION:DUAL ENERGY X-RAY ABSORPTIOMETRY / DEXA. TECHNIQUE:Bone Density Measurements (BMD) of lumbar spine and bilateral hips wereobtained using a ForMune scanner.. COMPARISON:None. FINDINGS: Lumbar Spine (L1-L4): g/cm2 [...] on 07/19/10 0726 Sign by: Irvin Cho 80-Zvw-34106:00 BILAT SCRN DIGITAL & CAD Radiology Report [...] ELAINE NIEVES on 07/19/10 1052 Sign by: LEAINE NIEVES 06-Wju-47504:59 Prothrombin Time (PT) Comments: PERFORMED BY: YAO [employer] RippldFormerly [facility] [id number] Prothrombin Time 30.2 {sec} (Abnormal) Range: 8.7-11.5 INR 2.8 (Abnormal) Range: 0.8-1.2 Comments: Reference interval is for non-anticoagulated patients. . Suggested INR therapeutic range for Vitamin K anta gonist therapy: Standard Dose (moderate intensity therapeutic range): 2.0 - 3.0 Higher intensity therapeutic range 2.5 - 3.5 09-Jlz-654114:36 PT (Prothrobim Time) Comments: standing order; PATIENT NOT FASTINGPERFORMED BY: Core CompetenceRobert Wood Johnson University Hospital at HamiltonGfokud4965 [facility] [id number] Information: [id number] (18105) Prothrombin Time 17.5 {sec} (Abnormal) Range: 8.7-11.5 INR 1.6 (Abnormal) Range: 0.8-1.2 Comments: Reference interval is for non-anticoagulated patients. . Suggested INR therapeutic range for Vitamin K anta gonist therapy: Standard Dose (moderate intensity therapeutic range): 2.0 - 3.0 Higher intensity therapeutic range 2.5 - 3.5 :22 Prothrombin Time (PT) Comments: PERFORMED BY: Core CompetenceRobert Wood Johnson University Hospital at HamiltonVghcwy1656 [facility] [id number] Prothrombin Time 19.0 {sec} (Abnormal) Range: 8.7-11.5 INR 1.8 (Abnormal) Range: 0.8-1.2 Comments: Reference interval is for non-anticoagulated patients..Suggested INR therapeutic range for Vitamin Kantagonist therapy:Standard Dose (moderate intensitytherapeutic range): 2.0 - 3.0Higher intensity therapeutic range 2.5 - 3.5 :24 HgA1C , Office (83307) HgA1C , Office 6.6 % (Normal) Range: 4.6 - 7.1 :24 Blood Glucose , Office (98131) Blood Glucose , Office 128 (Normal) :25 CBC With Differential/Platelet Comments: PATIENT WAS FASTINGPERFORMED BY: LabCoRobert Wood Johnson University Hospital at HamiltonHwzbly8776 [facility] [id number] Immature Grans (Abs) 0.0 {x10E3/uL} (Normal) Range: [...] 3.80-5.10 WBC 7.0 {x10E3/uL} (Normal) Range: 4.0-10.5 71-Nnu-76263:25 Comp. Metabolic Panel (14) Comments: PATIENT WAS FASTINGPERFORMED BY: LabCoRobert Wood Johnson University Hospital at HamiltonYmbryq6242 [facility] [id number] ALT (SGPT) 18 [iU]/L (Normal) Range: 0-40 [...] With LDL/HDL Comments: PATIENT WAS FASTINGPERFORMED BY: HealthPocketMaria [facility] [id number] Ratio LDL Cholesterol Calc 67 mg/dL (Normal) [...] Time (PT) Comments: PATIENT WAS FASTINGPERFORMED BY: [employer]6370 [facility] [id number] INR 1.7 (Abnormal) Range: 0.8-1.2 Comments: Reference interval is for non-anticoagulated patients..Suggested INR therapeutic range for Vitamin Kantagonist therapy:Standard Dose (moderate intensitytherapeutic range): 2.0 - 3.0Higher intensity therapeutic range 2.5 - 3.5 Prothrombin Time 18.0 {sec} Range: 8.7-11.5 (Abnormal) 02-May-2010 Vitamin D, 25-Hydroxy 44.2 ng/mL (Normal) Comments: PATIENT WAS FASTINGPERFORMED BY: Star[employer] SoftwareBronson [facility]6370 [facility] [id number] 9:25 Range: 32.0-100.0 Comments: Recent studies consider the lower limit of 32.0 ng/mL to be athreshold for optimal health.Ye JARVIS. J Nutr. 2004;135(2):317-22. 10-Jms-699074:08 Uric Acid, 24 hr Urine Comments: PERFORMED BY: [facility] Centerlin6370 [facility] [id number] Information: 02/13@6AM 02/14@545AM Uric Acid, Urine 24hr 502.4 {mg/24_hr} (Normal) Range: 250.0-750.0 Uric Acid, Urine 15.7 mg/dL (Normal) 92-Ijt-944420:21 Prothrombin Time (PT) Comments: PERFORMED BY: [employer] Gbujpd5208 [facility] [id number] Prothrombin Time 24.1 {sec} (Abnormal) Range: 8.7-11.5 INR 2.4 (Abnormal) Range: 0.8-1.2 Comments: Reference interval is for non-anticoagulated patients..Suggested INR therapeutic range for Vitamin Kantagonist therapy:Standard Dose (moderate intensitytherapeutic range): 2.0 - 3.0Higher intensity therapeutic range 2.5 - 3.5 Uric Acid, Serum 10.8 mg/dL (Abnormal) Comments: PERFORMED BY: [facility]6370 [facility] [id number] :21 Range: 2.4-8.2 93-Dht-825558:22 HgA1C , Office (56216) HgA1C , Office 6.4 % (Normal) Range: 4.6 - 7.1 14-Kwi-713166:22 Blood Glucose , Office (34667) Blood Glucose , Office 137 (Normal) 02-Yqs-411222:38 URIC ACID BLOOD (42292) Comments: PATIENT NOT FASTINGPERFORMED BY: [facility]6[address] [facility] [id number] Information: [id number] Uric Acid, Serum 9.0 mg/dL (Abnormal) Range: 2.4-8.2 50-Amp-022316:16 FOOT,MIN 3 VIEWS (MT) Radiology Report See Note (Normal) Comments: Exam Number: [id number] LEFT FOOT Three views of the left [...] seen. IMPRESSIONPlantar spur. Reported By: IRVIN CHO 64-Teg-979933:56 PTT (Activated Partial Comments: PATIENT NOT FASTINGPERFORMED BY: Core CompetenceRobert Wood Johnson University Hospital at HamiltonQrqbwl6747 [facility] [id number] Thromboplastin Time) (18733) aPTT 56 {sec} (Abnormal) Range: 24-33 Comments: This test has not been validated for monitoring unfractionated heparintherapy. aPTT-based therapeutic ranges for unfractionated heparintherapy have not been established. For general guidelines onHeparin monitoring, refer to the LabAud[facility] Directory of Services. 10-Mzf-000887:56 PT (Prothrobim Time) Comments: PATIENT NOT FASTINGPERFORMED BY: Star[employer] SoftwareBr[facility]6370 [facility] [id number] Information: [id number] (82038) Prothrombin Time 24.2 {sec} (Abnormal) Range: 8.7-11.5 INR 2.5 (Abnormal) Range: 0.8-1.2 Comments: Reference interval is for non-anticoagulated patients..Suggested INR therapeutic range for Vitamin Kantagonist therapy:Standard Dose (moderate intensitytherapeutic range): 2.0 - 3.0Higher intensity therapeutic range 2.5 - 3.5 45-Ssn-892668:49 Prothrombin Time (PT) Comments: PERFORMED BY: StarWind SoftwareBr[facility]6370 [facility] [id number] Prothrombin Time 26.2 {sec} (Abnormal) Range: 8.7-11.5 INR 2.7 (Abnormal) Range: 0.8-1.2 Comments: Reference interval is for non-anticoagulated patients..Suggested INR therapeutic range for Vitamin Kantagonist therapy:Standard Dose (moderate intensitytherapeutic range): 2.0 - 3.0Higher intensity therapeutic range 2.5 - 3.5 Hemoglobin A1c 6.1 % (Abnormal) Comments: PERFORMED BY: Core CompetenceRobert Wood Johnson [facility] Hospital at HamiltonJhhmuh0287 [facility] [id number] :56 Range: 4.8-5.6 Comments: Increased risk for diabetes: 5.7 - 6.4Diabetes: >6.4Glycemic control for adults with diabetes: <7.0.Please note reference interval change :21 HgA1C , Office (15299) HgA1C , Office 6.1 % (Normal) Range: 4.6 - 7.1 :21 Blood Glucose , Office (05267) Blood Glucose , Office 98 (Normal) :46 CBC With Differential/Platelet Comments: A courtesy copy of this report has been sent [phone].PATIENT WAS FASTINGPERFORMED BY: StarWind SoftwareBr[facility] Hospital6370 [facility] [id number] Information: [id number] Baso (Absolute) 0.0 {x10E3/uL} (Normal) Range: 0.0-0.2 [...] copy of this report has been sent [phone].PATIENT WAS FASTINGPERFORMED BY: [facility] Zbyilp2604 [facility] [id number] Alkaline Phosphatase, S 85 [iU]/L (Normal) Range: [...] copy of this report has been sent [phone].PATIENT WAS FASTINGPERFORMED BY: [email or web address] [facility] Hzpacd5398 [facility] [id number] Ratio HDL Cholesterol 37 mg/dL (Abnormal) Comments: [...] copy of this report has been sent [phone].PATIENT WAS FASTINGPERFORMED BY: [facility] Zbogpk5467 [facility] [id number] Microalb/Creat Ratio 7.2 {mg/g_creat} (Normal) Range: 0.0-30.0 Creatinine, Urine 16.6 mg/dL (Normal) Range: 15.0-278.0 Microalbumin, Urine 1.2 ug/mL (Normal) Range: 0.0-17.0 :46 Prothrombin Time (PT) Comments: A courtesy copy of this report has been sent [phone].PATIENT WAS FASTINGPERFORMED BY: Core CompetenceRobert Wood Johnson University Hospital at HamiltonFyawwb1969 [facility] [id number] Prothrombin Time 28.1 {sec} Range: 8.7-11.5 (Abnormal) INR 2.9 (Abnormal) Range: 0.8-1.2 Comments: Reference interval is for non-anticoagulated patients..Suggested INR therapeutic range for Vitamin Kantagonist therapy:Standard Dose (moderate intensitytherapeutic range): 2.0 - 3.0Higher intensity therapeutic range 2.5 - 3.5 Vitamin D, 25-Hydroxy 27.8 ng/mL Comments: A courtesy copy of this report has been sent [phone].PATIENT WAS FASTINGPERFORMED BY: Core CompetenceRobert Wood Johnson University Hospital at HamiltonNbuhbw8469 [facility] [id number] :46 (Abnormal) Range: 32.0-100.0 Comments: Recent studies consider the lower limit of 32.0 ng/mL to be athreshold for optimal health.Ye JARVIS. J Nutr. 2004;135(2):317-22. 33-Wta-000509:51 Comp. Metabolic Panel (14) Comments: PERFORMED BY: Core CompetenceRobert Wood Johnson University Hospital at HamiltonLgqlzd3909 [facility] [id number] A/G Ratio 1.3 (Normal) Range: 1.1-2.5 Albumin, [...] :51 Prothrombin Time (PT) Comments: PERFORMED BY: MeetBall [facility] [id number] INR 2.3 (Abnormal) Range: 0.8-1.2 Comments: Reference interval is for non-anticoagulated patients. . Suggested INR therapeutic range for Vitamin K anta gonist therapy: Standard Dose (moderate intensity therapeutic range): 2.0 - 3.0 Higher intensity therapeutic range 2.5 - 3.5 Prothrombin Time 22.7 {sec} (Abnormal) Range: 8.7-11.5 :47 PT (Prothrobim Time) (46763) Comments: PATIENT NOT FASTINGClinical Information: [id number] PERFORMED BY: appirislin6370 [facility] [id number] INR 2.0 (Abnormal) Range: 0.8-1.2 Comments: Reference interval is for non-anticoagulated patients. . Suggested INR therapeutic range for Vitamin K anta gonist therapy: Standard Dose (moderate intensity therapeutic range): 2.0 - 3.0 Higher intensity therapeutic range 2.5 - 3.5 Prothrombin Time 19.7 {sec} (Abnormal) Range: 8.7-11.5 92-Rxm-405534:10 HgA1C , Office (16668) HgA1C , Office 6.3 % (Normal) Range: 4.6 - 7.1 17-Cyj-064261:10 Blood Glucose , Office (15427) Blood Glucose , Office 109 (Normal) 30-Qam-946381:58 BILAT SCRN DIGITAL & CAD Radiology Report See Note (Normal) Comments: Exam Number: [id number] MAMMOGRAM, BILATERAL SCREENING DIGITAL AND CAD HISTORYRoutine [...] mammograms werealso examined with computer-aided detection software ([employer], [employer] Reported By: ELAINE NIEVES M.D. 2-Crq-864011:22 PRO TIME INR 2.3 (Normal) PROTIME 26.1 s (Abnormal) Range: 9.1-11.7 40-Btn-745230:19 CHEST, PA AND LATERAL (MT) Radiology Report See Note (Normal) Comments: Exam Number: [id number] PA AND LATERAL CHEST Mild cardiomegaly appears [...] (Abnormal) Range: 9.1-11.7 :58 HgA1C , Office (62820) HgA1C , Office 5.7 % (Normal) Range: 4.6 - 7.1 :58 Blood Glucose , Office (82185) Blood Glucose , Office 119 (Normal) :39 PT/INR, Office (72432) INR 2.6 (Normal) :55 PT/INR, Office (85134) INR 2.5 (Normal) Comments: aw :01 HgA1C , Office (32374) HgA1C , Office 5.8 % (Normal) Range: 4.6 - 7.1 :01 Blood Glucose , Office (05125) Blood Glucose , Office 111 (Normal) :27 PT/INR, Office (18746) INR 2.2 (Normal) :09 PT/INR, Office (80881) INR 1.8 (Normal) :55 PT/INR, Office (57951) INR 3.3 (Normal) :51 PT/INR, Office (68802) INR 3.2 (Normal) Comments: aw 15-Nop-536575:00 PT/INR, Office (02076) INR 2.9 (Normal) :14 PT/INR, Office (48470) INR 3.7 (Normal) :50 HgA1C , Office (58514) HgA1C , Office 5.8 % (Normal) Range: 4.6 - 7.1 :50 Blood Glucose , Office (45383) Blood Glucose , Office 119 (Normal) :03 CBC With Differential/Platelet Comments: PATIENT WAS FASTINGPERFORMED BY: LabCo Mgyshe3076 [facility] [id number] Baso (Absolute) 0.0 {x10E3/uL} (Normal) Range: 0.0-0.2 [...] 11.7-15.0 WBC 7.4 {x10E3/uL} (Normal) Range: 4.0-10.5 73-Icx-366346:03 Comp. Metabolic Panel (14) Comments: PATIENT WAS FASTINGPERFORMED BY: [facility]Aud[facility] Waekxe3728 [facility] [id number] A/G Ratio 1.1 (Normal) Range: 1.1-2.5 Albumin, [...] Serum 106 mg/dL (Abnormal) Range: 65-99 If -South African 46 mL/min/1.73 Comments: Note: Persistent reduction for [...] With LDL/HDL Comments: PATIENT WAS FASTINGPERFORMED BY: [address] [id number] Ratio Cholesterol, Total 129 mg/dL (Normal) Range: 100-199 HDL Cholesterol 34 mg/dL (Abnormal) Comments: According to ATP-III Guidelines, HDL-C >59 mg/dL is considered anegative risk factor for CHD. LDL Cholesterol Calc 66 mg/dL (Normal) Range: 0-99 LDL/HDL Ratio 1.9 {ratio_units} (Normal) Range: 0.0-3.2 Triglycerides 144 mg/dL (Normal) Range: 0-149 VLDL Cholesterol Maricruz 29 mg/dL (Normal) Range: 5-40 58-Jcw-443865:03 Microscopic Examination Comments: PATIENT WAS FASTINGPERFORMED BY: [address] [id number] Bacteria Few (Normal) Cast Type Hyaline casts (Normal) Casts Present {/lpf} (Abnormal) Crystal Type Amorphous Sediment (Normal) Crystals Present (Abnormal) Epithelial Cells (non 0-10 {/hpf} (Normal) Range: 0 - 10 renal) Mucus Threads Present (Normal) RBC 0-3 {/hpf} (Normal) Range: 0 - 3 WBC 0-5 {/hpf} (Normal) Range: 0 - 5 NTI Urine Tube (Dorsey) COMMNT (Normal) Comments: PATIENT WAS FASTINGPERFORMED BY: [facility] [place] [address] [id number] 1:03 Comments: .A urine culture transport was received with no test indicated. Iftesting is required on this specimen, please contact the [facility] SoftwareM[facility] Inquiry/Technical Services Department to obtain a Request forWritten Authorization Form. TSH 2.526 {uIU/mL} Comments: PATIENT WAS FASTINGPERFORMED BY: [facility]6[address] [facility] [id number] 1:03 (Normal) Range: 0.450-4.500 11-Yaj-725018:03 Urinalysis, Routine Comments: PATIENT WAS FASTINGPERFORMED BY: LabCoRobert Wood Johnson [facility] Hospital at HamiltonMwuqat7310 [address] [facility] [id number] Appearance Clear (Normal) Bilirubin Negative (Normal) Glucose Negative (Normal) Ketones Negative (Normal) Microscopic Examination See below: (Normal) Nitrite, Urine Negative (Normal) Occult Blood Negative (Normal) pH 7.0 (Normal) Range: 5.0-7.5 Protein Negative (Normal) Specific [place] 1.008 (Normal) Range: 1.005-1.030 Urine-Color Yellow (Normal) Urobilinogen,Semi-Qn 0.2 mg/dL (Normal) Range: 0.0-1.9 WBC Esterase Trace (Abnormal) :29 PT/INR, Office (63942) INR 2.6 (Normal) Comments: aw 81-Bfh-854706:16 HgA1C , Office (33726) HgA1C , Office 6.1 % (Normal) Range: 4.6 - 7.1 02-Wnw-905243:16 Blood Glucose , Office (82314) Blood Glucose , Office 186 (Normal) 31-Yqv-412630:16 PT/INR, Office (39090) INR 2.8 (Normal) :49 BILAT SCRN DIGITAL & CAD Radiology Report See Note (Normal) Comments: Exam Number: [id number] MAMMOGRAM, BILATERAL SCREENING DIGITAL AND CAD HISTORYRoutine [...] mammograms werealso examined with computer-aided detection software ([employer], [employer].). Reported By: ELAINE NIEVES M.D. :37 PT/INR, Office (65943) INR 2.4 (Normal) :00 PT/INR, Office (27678) INR 1.9 (Normal) PT (PROTHROMBIN TIME) INR - 1.9 s (Normal) Range: 11.5-13.5 :18 DEXA BONE DENSITY/APPEND SKEL Radiology Report See Note (Normal) Comments: Exam Number: [id number] BONE DENSITOMETRY/APPENDICULAR SKELETON HISTORYOsteopenia. TECHNIQUE Bone densitometry [...] of osteopenia. Reported By: ELAINE NIEVES M.D. 76-Tpk-476626:08 PT/INR, Office (83670) INR 2.0 (Normal) 14-Mhe-852202:08 HgA1C , Office (78293) HgA1C , Office 6.3 % (Normal) Range: 4.6 - 7.1 48-Xja-736043:08 Blood Glucose , Office (69873) Blood Glucose , Office 177 (Normal) :13 [...] (Normal) PROTIME 28.9 s (Abnormal) Range: 10.6-13.2 67-Zfz-205859:08 PRO TIME INR 3.4 (Normal) PROTIME 36.9 s (Abnormal) Range: 10.6-13.2 82-Vpo-971240:20 PRO TIME INR 2.1 (Normal) PROTIME 23.9 s (Abnormal) Range: 10.6-13.2 :39 PRO TIME INR 3.1 (Normal) PROTIME 33.5 s (Abnormal) Range: 10.6-13.2 :22 HgA1C , Office (93564) HgA1C , Office 6.1 % (Normal) Range: 4.6 - 7.1 :22 Blood Glucose , Office (28294) Blood Glucose , Office 105 (Normal) :34 [...] s (Abnormal) Range: 10.6-13.2 :35 PT/INR, Office (18307) INR 2.7 (Normal) :56 HgA1C , Office (52104) HgA1C , Office 5.8 % (Normal) Range: 4.6 - 7.1 :56 Blood Glucose , Office (53691) Blood Glucose , Office 103 (Normal) :28 PRO TIME INR 2.8 (Normal) PROTIME 30.7 s (Abnormal) Range: 10.6-13.2 :55 PRO TIME INR 2.1 (Normal) PROTIME 24.0 s (Abnormal) Range: 10.6-13.2 :05 PT/INR, Office (57529) INR 2.5 (Normal) :05 Blood Glucose , Office (21247) Blood Glucose , Office 100 (Normal) :05 HgA1C , Office (89799) HgA1C , Office 6.2 % (Normal) Range: 4.6 - 7.1 :10 [facility] DIGITAL & CAD Radiology Report See Note (Normal) Comments: Exam Number: [id number] DIGITAL SCREENING MAMMOGRAPHY WITH CAD COMPARISON STUDYDated [...] werealso examined with computer- aided detection software ([employer].). Reported By: MAO KURTZ M.D. :49 PRO TIME INR 2.5 (Normal) PROTIME 27.8 s (Abnormal) Range: 10.6-13.2 :13 PRO TIME INR 2.7 (Normal) PROTIME 29.7 s (Abnormal) Range: 10.6-13.2 :14 PRO TIME INR 2.2 (Normal) PROTIME 24.3 s (Abnormal) Range: 10.6-13.2 :26 PT/INR, Office (79572) INR 2.5 (Normal) PT (PROTHROMBIN TIME) INR 2.5 s (Normal) Range: 11.5-13.5 :25 HgA1C , Office (91252) HgA1C , Office 6.0 % (Normal) Range: 4.6 - 7.1 :25 Blood Glucose , Office (20321) Blood Glucose , Office 108 (Normal) :20 [...] Note Reference Interval Change :22 PT/INR, Office (77518) Comments: done- same dose recheck in 2 weeks-- alternate 4/5 INR 2.3 (Normal) :22 HgA1C , Office (28691) Comments: done HgA1C , Office 5.9 % (Normal) Range: 4.6 - 7.1 :21 Blood Glucose , Office (55522) Comments: done Blood Glucose , Office 101 [...] s (Abnormal) Range: 11.7-13.3 :50 PT/INR, Office (86879) INR 1.9 (Normal) PT (PROTHROMBIN TIME) 16.9 s (Abnormal) Range: 11.5-13.5 :50 HgA1C , Office (85707) HgA1C , Office 6.0 % (Normal) Range: 4.6 - 7.1 :50 Blood Glucose , Office (65417) Blood Glucose , Office 95 (Normal) :59 [...] (Abnormal) Range: 11.7-13.3 :40 HgA1C , Office (29744) HgA1C , Office 5.7 % (Normal) Range: 4.6 - 7.1 :40 Blood Glucose , Office (06459) Blood Glucose , Office 115 (Normal) Plan of Care Name Dates Details Instructions Anasarca : Follow up in 3 months Indication: Anasarca Iron deficiency anemia : Reviewed Structural Steel Engineer Letter Indication: Iron deficiency anemia Valvular disease : Reviewed Structural Steel Engineer Letter Indication: Valvular disease Lower GI bleed : Reviewed Lab Indication: Lower GI bleed Lower GI bleed : Reviewed Structural Steel Engineer Letter Indication: Lower GI bleed Essential hypertension with goal blood pressure less than 130/80 : Reviewed Structural Steel Engineer Letter Indication: Essential hypertension with goal blood [...] : Follow up in 2 weeks with [facility] SaturdayNovember 20 Indication: Cough Cough : [...] : FOLLOW UP IN 1 WEEK with [facility] Indication: Atrial fibrillation Mixed dyslipidemia : Diet, Exercise, and Wt loss Indication: Mixed dyslipidemia Cough : MDI Education Indication: Cough Mixed dyslipidemia : FOLLOW UP IN 2 MONTHS Indication: Mixed dyslipidemia FOLLOW UP IN 3 MONTHS Planned Observations Metabolic Panel, Comprehensive ([id number])Indication: CKD (chronic kidney disease), stage III On: :09 Request CBC & PLATELETS (AUTO) (08720)Indication: Lower GI bleed On: :08 Request PT (PROTHROMBIN TIME) (08845)Indication: Lower GI bleed On: :08 Request Metabolic Panel, Basic (16549)Indication: Shortness of breath On: :58 Request CBC, Platelets & Auto Diff (96602)Indication: Shortness of breath On: :55 Request BNTP (30399)Indication: Shortness of breath On: :55 Request BNTP (62109)Indication: Acute CHF On: 0-Inr-738623:18 Request METABOLIC PANEL, COMPREHENSIVE (93572)Indication: Acute CHF On: 2-Fbm-625090:18 Request CBC & PLATELETS (AUTO) (11575)Indication: Acute CHF On: 5-Tfr-473594:18 Request FERRITIN (55501)Indication: Iron deficiency anemia On: 8-Klr-751395:22 Request IRON BINDING CAPACITY (TIBC) (61103)Indication: Iron deficiency anemia On: 6-Sma-007249:22 Request IRON (85239)Indication: Iron deficiency anemia On: 1-Kyb-396327:22 Request IRON & TOTAL IRON BINDING CAPACITY (19745)Indication: Iron deficiency anemia On: 0-Lud-249710:22 Request LIPID PANEL (01495)Indication: Diabetes mellitus type II, controlled On: 0-Bjs-939849:20 Request Metabolic Panel, Comprehensive (19112)Indication: Acute renal failure On: 7-Pkd-322824:19 Request PT (Prothrobim Time) (93307)Indication: Walking pneumonia On: 84-Rzt-057721:20 Request PT (PROTHROMBIN TIME) (06096)Indication: Atrial fibrillation On: 03-May-2017 Request Comments: Standing order Ferritin (07152)Indication: Anemia, unspecified On: 39-Cey-998530:45 Request Iron (32636)Indication: Anemia, unspecified On: :45 Request CBC WITH MANUAL DIFF (02723)Indication: Anemia, unspecified On: :45 Request CBC, Platelets & Auto Diff (76668)Indication: Lower GI bleed On: :40 Request Comments: Week of February 25, give lab slip HgA1C , Office (87675)Indication: Diabetes mellitus type II, controlled On: : Request Blood Glucose , Office (67568)Indication: Diabetes mellitus type II, controlled On: :26 Request FERRITIN (68830)Indication: Anemia, unspecified On: :26 Request HGB (HEMOGLOBIN) (39915)Indication: Lower GI bleed On: :44 Request MAGNESIUM (06606)Indication: Acute renal failure On: :11 Request Comments: to be done around January 14 Metabolic Panel, Comprehensive (13855)Indication: Acute renal failure On: :06 Request Comments: to be done at [place] 01-14 CBC & PLATELETS (AUTO) (36035)Indication: Acute renal failure On: :06 Request Comments: to be done at [place] on 01-14 URINE SIOBHAN CULTURE-IDENTIFICATN (75433)Indication: Acute renal failure On: 2-Euv-616616:55 Request URINALYSIS (36428)Indication: Acute renal failure On: :51 Request Comments: December 25 Renal function Panel (86777)Indication: Acute renal failure On: :51 Request Comments: December 25 METABOLIC PANEL, BASIC (00921)Indication: Abnormal blood finding On: :00 Request CBC, PLATELETS & AUT DIFF (98002)Indication: Abnormal blood finding On: :00 Request Metabolic Panel, Basic (97841)Indication: Abnormal blood finding On: 4-Cts-544612:01 Request Comments: stat CBC WITH MANUAL DIFF (25837)Indication: Abnormal blood finding On: :17 Request CBC, Platelets & Auto Diff (33096)Indication: Iron deficiency anemia On: 69-Tng-737088:15 Request PT (PROTHROMBIN TIME) (55778)Indication: Atrial fibrillation On: 2-Psx-082836:36 Request Comments: standing order FERRITIN (73789)Indication: Restless leg syndrome On: :32 Request IRON & TOTAL IRON BINDING CAPACITY (78588)Indication: Restless leg syndrome On: :32 Request MICROALBUMIN: CREATININE RATIO (38245) AND ([id number])Indication: Restless leg syndrome On: :32 Request VITAMIN B12 AND FOLATES (20076)Indication: Restless leg syndrome On: : Request CALCIFEDIOL (17822)Indication: Restless leg syndrome On: : Request TSH (THYROID STIMULATING HORMONE) (80327)Indication: Restless leg syndrome On: :32 Request LIPID PANEL (53142)Indication: Mixed dyslipidemia On: :32 Request METABOLIC PANEL, COMPREHENSIVE (06971)Indication: BMI 45.0-49.9, adult On: :32 Request CBC, PLATELETS & AUT DIFF (26439)Indication: BMI 45.0-49.9, adult On: :32 Request FERRITIN (22367)Indication: Iron deficiency anemia On: :20 Request IRON & TOTAL IRON BINDING CAPACITY (62821)Indication: Iron deficiency anemia On: :20 Request LIPID PANEL (39352)Indication: Mixed dyslipidemia On: :20 Request TSH (THYROID STIMULATING HORMONE) (88207)Indication: Mild vitamin D deficiency On: :19 Request VITAMIN B12 AND FOLATES (19470)Indication: Mild vitamin D deficiency On: :19 Request CALCIFEDIOL (08798)Indication: Mild vitamin D deficiency On: :19 Request METABOLIC PANEL, COMPREHENSIVE (79024)Indication: Diabetes mellitus type 2, uncontrolled, without complications On: :19 Request CBC, PLATELETS & AUT DIFF (35008)Indication: Diabetes mellitus type 2, uncontrolled, without complications On: Request LDH (LD) (LACTATE DEHYDROGENASE) (98403)Indication: Anemia, unspecified On: Request FOLIC ACID SERUM (49100)Indication: Anemia, unspecified On: Request SPEP (20322)Indication: Anemia, unspecified On: Request UPEP (13512)Indication: Anemia, unspecified On: Request FERRITIN (13320)Indication: Anemia, unspecified On: Request IRON (96010)Indication: Anemia, unspecified On: Request VITAMIN B-12 (CYANOCOBALAMIN) (45738)Indication: Anemia, unspecified On: Request ZDTMX-DCNTBOWSLGJ-UEERJ (49731)Indication: Other chronic nonalcoholic liver disease On: Request CBC with auto diff (46973)Indication: Essential hypertension with goal blood pressure less than 130/80 On: Request HGB A1C (73084)Indication: Diabetes mellitus type II, controlled On: Request MICROALBUMIN: CREATININE RATIO (54917) AND (16697)Indication: Diabetes mellitus type II, controlled On: Request LIPID PANEL (98114)Indication: Mixed dyslipidemia On: Request Metabolic Panel, Basic (57243)Indication: Diabetes mellitus type 2, uncontrolled, without complications On: Request MICROALBUMIN: CREATININE RATIO (10268) AND (95088)Indication: Diabetes mellitus type II, controlled On: : Request METABOLIC PANEL, COMPREHENSIVE (78175)Indication: Diabetes mellitus type II, controlled On: : Request LIPID PANEL (05375)Indication: Mixed dyslipidemia On: Request CBC (AUTO) (29933)Indication: Anemia, unspecified On: 59 Request Vitamin D Hydroxy (31768)Indication: Mild vitamin D deficiency On: 21-Rpi-67703:59 Request ERTWC-QBIMBKSKZAR-AEEUO (57170)Indication: Other chronic nonalcoholic liver disease On: :57 Request CBC with auto diff (63706)Indication: Pulmonary hypertension On: :50 Request Hemoglobin Glyclated (HGB A1C) (96063)Indication: Diabetes mellitus type II, controlled On: :50 Request METABOLIC PANEL, COMPREHENSIVE (76915)Indication: Essential hypertension with goal blood pressure less than 130/80 On: :49 Request LIPID PANEL (33228)Indication: Mixed dyslipidemia On: :49 Request LIPID PANEL (12007)Indication: Diabetes mellitus type II, controlled On: :49 Request HEPATIC FUNCTION PANEL (18386)Indication: Diabetes mellitus type II, controlled On: :49 Request Vitamin D Hydroxy (86374)Indication: Mild vitamin D deficiency On: :30 Request METABOLIC PANEL, COMPREHENSIVE (96466)Indication: Diabetes mellitus type II, controlled On: :30 Request LIPID PANEL (71864)Indication: Mixed dyslipidemia On: :30 Request PBIGH-EOZYLYNKZQQ-MUBGG (82803)Indication: Other chronic nonalcoholic liver disease On: :29 Request CBC with auto diff (26412)Indication: Anemia, unspecified On: :29 Request MICROALBUMIN: CREATININE RATIO (96718) AND ([id number])Indication: Diabetes mellitus type II, controlled On: :24 Request METABOLIC PANEL, COMPREHENSIVE (09780)Indication: Essential hypertension with goal blood pressure less than 130/80 On: :24 Request Vitamin D Hydroxy (98345)Indication: Mild vitamin D deficiency On: :24 Request LIPID PANEL (97409)Indication: Mixed dyslipidemia On: :24 Request LDH (LD) (LACTATE DEHYDROGENASE) (67048)Indication: Anemia, unspecified On: :24 Request VITAMIN B-12 (CYANOCOBALAMIN) (95302)Indication: Anemia, unspecified On: :24 Request IRON BINDING CAPACITY (TIBC) (52640)Indication: Anemia, unspecified On: :24 Request FERRITIN (33422)Indication: Anemia, unspecified On: :24 Request IRON (99111)Indication: Anemia, unspecified On: :24 Request CBC W/AUTO DIFF WBC (46753)Indication: Anemia, unspecified On: :24 Request LIPID PANEL (91108)Indication: Mixed dyslipidemia On: : Request METABOLIC PANEL, COMPREHENSIVE (16183)Indication: Essential hypertension with goal blood pressure less than 130/80 On: :02 Request CBC (AUTO) (04171)Indication: Anemia, unspecified On: : Request Vitamin D Hydroxy (04760)Indication: Mild vitamin D deficiency On: : Request YNGIG-DMIKOHYROLJ-NNSWH (25516)Indication: Other chronic nonalcoholic liver disease On: : Request PTT (Activated Partial Thromboplastin Time) (21271)Indication: Other chronic nonalcoholic liver disease On: : Request PT (Prothrobim Time) (44809)Indication: Other chronic nonalcoholic liver disease On: : Request PT (Prothrobim Time) (94201)Indication: Atrial fibrillation On: :28 Request Comments: STANDING ORDER CBC WITH MANUAL DIFF (40087)Indication: Anemia, unspecified On: :53 Request LIPID PANEL (38953)Indication: Mixed dyslipidemia On: :53 Request MICROALBUMIN: CREATININE RATIO (50852) AND (35475)Indication: Diabetes mellitus type II, controlled On: 58-Ppj-378401:52 Request METABOLIC PANEL, COMPREHENSIVE (56286)Indication: Diabetes mellitus type II, controlled On: 86-Gtr-342175:52 Request Vitamin D Hydroxy (70922)Indication: Mild vitamin D deficiency On: :52 Request Vitamin D Hydroxy (42761)Indication: Mild vitamin D deficiency On: :13 Request LIPID PANEL (30318)Indication: Mixed dyslipidemia On: :12 Request URIC ACID BLOOD (08196)Indication: Gout On: :12 Request TVRUO-TWYIWOBPXMV-LWCIF (40323)Indication: Other chronic nonalcoholic liver disease On: :12 Request PTT (Activated Partial Thromboplastin Time) (85957)Indication: Other chronic nonalcoholic liver disease On: :12 Request METABOLIC PANEL, COMPREHENSIVE (90960)Indication: Essential hypertension with goal blood pressure less than 130/80 On: :12 Request CBC WITH MANUAL DIFF ([id number])Indication: Anemia, unspecified On: 83-Unl-158092:11 Request PT (Prothrobim Time) (65596)Indication: Atrial fibrillation On: 83-Hcw-302434:59 Request Comments: STANDING ORDER HEPATIC FUNCTION PANEL (36279)Indication: Mixed dyslipidemia On: 29-Ihi-404080:56 Request CBC WITH MANUAL DIFF (23020)Indication: Gout On: :08 Request LIPID PANEL (83349)Indication: Mixed dyslipidemia On: :08 Request METABOLIC PANEL, COMPREHENSIVE (43340)Indication: Diabetes mellitus type II, controlled On: 63-Ovd-241434:08 Request MICROALBUMIN: CREATININE RATIO (19126) AND (57964)Indication: Diabetes mellitus type II, controlled On: :08 Request Metabolic Panel, Basic (74345)Indication: Hyperkalemia On: 61-Gup-244762:40 Request PT (Prothrobim Time) (14737)Indication: Atrial fibrillation On: 0-Hly-064559:35 Request LIPID PANEL (91204)Indication: Mixed dyslipidemia On: 31-Tvt-217045:34 Request METABOLIC PANEL, COMPREHENSIVE (22117)Indication: Diabetes mellitus type II, controlled On: 06-Vbv-363857:33 Request MICROALBUMIN: CREATININE RATIO (84103) AND (49389)Indication: Diabetes mellitus type II, controlled On: :33 Request CBC WITH MANUAL DIFF (92533)Indication: Anemia, unspecified On: 07-Gtj-933644:33 Request CBC WITH MANUAL DIFF (86512)Indication: Anemia, unspecified On: 32-Cmr-119921:07 Request METABOLIC PANEL, COMPREHENSIVE (28032)Indication: Renal insufficiency (Renamed from Renal function impairment) On: :06 Request MICROALBUMIN: CREATININE RATIO (97124) AND (57306)Indication: Diabetes mellitus type II, controlled On: :06 Request LIPID PANEL (07650)Indication: Mixed dyslipidemia On: 41-Fds-887847:06 Request WKATY-ZXQIVTAENKO-SCMLE (52785)Indication: Other chronic nonalcoholic liver disease On: :06 Request Vitamin D Hydroxy (39602)Indication: Mild vitamin D deficiency On: :05 Request Vitamin D Hydroxy (74864)Indication: Mild vitamin D deficiency On: 71-Dip-528568:08 Request FLURESCNT ANTIB SCRN EA (78811) celiac profileIndication: Anemia, unspecified On: :08 Request IGA/IGD/IGG/IGM-EACH (44157) celiac profileIndication: Anemia, unspecified On: :08 Request IMMUNOASSAY, ANALYTE (NON-INFECT) (21611) celiac profileIndication: Anemia, unspecified On: 89-Koj-518363:08 Request METABOLIC PANEL, COMPREHENSIVE (55159)Indication: Diabetes mellitus type 2, uncontrolled, without complications On: 40-Fqk-454058:06 Request CBC with manual diff (91033)Indication: Anemia, unspecified On: 28-Bwc-213220:49 Request Iron Binding Capacity (TIBC) (56668)Indication: Anemia, unspecified On: 94-Hlt-267601:49 Request Iron (55180)Indication: Anemia, unspecified On: :49 Request Ferritin (44459)Indication: Anemia, unspecified On: 70-Fqn-140303:49 Request Metabolic Panel, Basic (68355)Indication: Abnormal blood chemistry On: :09 Request LIPID PANEL (32519)Indication: Mixed dyslipidemia On: 02-Tca-649135:02 Request Metabolic Panel, Basic (58849)Indication: Renal insufficiency (Renamed from Renal function impairment) On: 16-Gxs-308065:01 Request IRON ([id number])Indication: Anemia, unspecified On: 20-Ebi-466127:32 Request Vitamin D Hydroxy (65343)Indication: Mild vitamin D deficiency On: 08-Oqz-238277:49 Request LIPID PANEL (34117)Indication: Mixed dyslipidemia On: 43-Rxg-554155:48 Request CBC WITH MANUAL DIFF (10719)Indication: Anemia, unspecified On: 95-Hog-908542:48 Request METABOLIC PANEL, COMPREHENSIVE (64960)Indication: Abnormal glucose tolerance test On: 40-Ojm-371561:48 Request MICROALBUMIN: CREATININE RATIO (56223) AND (09916)Indication: Abnormal glucose tolerance test On: :48 Request CALCIFEDIOL (07370)Indication: Mild vitamin D deficiency On: 5-Sco-647207:16 Request LIPID PANEL (66038)Indication: Mixed dyslipidemia On: 3-Dmx-118158:16 Request METABOLIC PANEL, COMPREHENSIVE (26710)Indication: Mixed dyslipidemia On: 9-Glm-549198:16 Request URINALYSIS (98736)Indication: Essential hypertension with goal blood pressure less than 130/80 On: 6-Mzr-582907:16 Request CBC with manual diff (44381)Indication: Essential hypertension with goal blood pressure less than 130/80 On: 0-Sye-903980:16 Request LDH (LD) (LACTATE DEHYDROGENASE) (67824)Indication: Essential hypertension with goal blood pressure less than 130/80 On: 8-Lxf-145030:16 Request Iron (33598)Indication: Essential hypertension with goal blood pressure less than 130/80 On: 1-App-982893:16 Request Ferritin (65541)Indication: Essential hypertension with goal blood pressure less than 130/80 On: 6-Ams-953646:16 Request URIC ACID BLOOD (16945)Indication: Gout On: 91-Sju-377690:49 Request LDH (LD) (LACTATE DEHYDROGENASE) (79593)Indication: Anemia, unspecified On: 78-Izu-785503:26 Request URIC ACID BLOOD (02466)Indication: Gout On: 1-Gfe-007291:19 Request URIC ACID BLOOD (59182)Indication: Gout On: 4-Uvm-064518:16 Request TSH (THYROID STIMULATING HORMONE) (18124)Indication: Mixed dyslipidemia On: :29 Request URINALYSIS (44943)Indication: Mixed dyslipidemia On: 31-Dzx-410673:28 Request LIPID PANEL (18490)Indication: Mixed dyslipidemia On: :27 Request CBC, PLATELETS & AUT DIFF (72990)Indication: Mixed dyslipidemia On: :18 Request METABOLIC PANEL, COMPREHENSIVE (52921)Indication: Mixed dyslipidemia On: :17 Request CALCIFEDIOL (08640)Indication: Mild vitamin D deficiency On: :16 Request HgA1C , Office (11016)Indication: Abnormal glucose tolerance test On: :59 Request METABOLIC PANEL, BASIC (82847)Indication: Atrial fibrillation On: :30 Request METABOLIC PANEL, BASIC (20536)Indication: Atrial fibrillation On: :59 Request CBC WITH MANUAL DIFF ([id number])Indication: Atrial fibrillation On: :11 Request METABOLIC PANEL, COMPREHENSIVE (64304)Indication: Other chronic nonalcoholic liver disease On: :10 Request LIPID PANEL (88715)Indication: Mixed dyslipidemia On: :10 Request LIPID PANEL (92712)Indication: Mixed dyslipidemia On: :11 Request CBC WITH MANUAL DIFF (73990)Indication: Abnormal glucose tolerance test On: 8-Opi-745458:11 Request MICROALBUMIN: CREATININE RATIO (94925) AND (33352)Indication: Abnormal glucose tolerance test On: 8-Poa-332905:11 Request Vitamin D Hydroxy (47017)Indication: Mild vitamin D deficiency On: :11 Request METABOLIC PANEL, COMPREHENSIVE (54018)Indication: Other chronic nonalcoholic liver disease On: :10 Request METABOLIC PANEL, COMPREHENSIVE (35409)Indication: Abnormal glucose tolerance test On: 27-Nnm-828281:10 Request MICROALBUMIN: CREATININE RATIO (34762) AND (94337)Indication: Abnormal glucose tolerance test On: 00-Ooi-602442:10 Request LIPID PANEL (56432)Indication: Mixed dyslipidemia On: 44-Fpe-650184:10 Request Vitamin D Hydroxy (70654)Indication: Osteopenia On: 52-Oro-429540:10 Request LIPID PANEL (64439)Indication: Mixed dyslipidemia On: 82-Wan-343817:48 Request Vitamin D Hydroxy (70204)Indication: Mild vitamin D deficiency On: :48 Request CBC WITH MANUAL DIFF (07496)Indication: Abnormal glucose tolerance test On: :47 Request METABOLIC PANEL, COMPREHENSIVE (48301)Indication: Abnormal glucose tolerance test On: 77-Fkw-481370:47 Request LIPID PANEL (02148)Indication: Mixed dyslipidemia On: 82-Dcm-244441:39 Request METABOLIC PANEL, COMPREHENSIVE (55303)Indication: Hypercalcemia On: 54-Ehw-530239:38 Request Vitamin D Hydroxy (27069)Indication: Mild vitamin D deficiency On: :38 Request CBC (AUTO) (24104)Indication: Abnormal glucose tolerance test On: 10-Ksb-050084:28 Request Vitamin D Hydroxy (89950)Indication: Osteopenia On: :28 Request CBC WITH MANUAL DIFF (61458)Indication: Essential hypertension with goal blood pressure less than 130/80 On: 08-Ird-543416:28 Request MICROALBUMIN: CREATININE RATIO (00909) AND (98472)Indication: Abnormal glucose tolerance test On: :28 Request METABOLIC PANEL, COMPREHENSIVE (96470)Indication: Hypercalcemia On: 70-Oaa-982303:27 Request Vitamin D Hydroxy (16241)Indication: Osteopenia On: 28-Nff-042087:34 Request Metabolic Panel, Basic (67259)Indication: Hyperkalemia On: 25-Jls-379384:04 Request Comments: 1 week LIPID PANEL (83946)Indication: Mixed dyslipidemia On: 22-Bye-223961:34 Request TSH (76413)Indication: Essential hypertension with goal blood pressure less than 130/80 On: 39-Fpc-545994:34 Request CBC WITH MANUAL DIFF (69902)Indication: Essential hypertension with goal blood pressure less than 130/80 On: 70-Spj-065954:34 Request METABOLIC PANEL, COMPREHENSIVE (75485)Indication: Abnormal glucose tolerance test On: 90-Vmy-167219:34 Request PT/INR, Office (35123)Indication: Atrial fibrillation On: :55 Request PT/INR, Office (04155)Indication: Atrial fibrillation On: 3-Yun-534284:36 Request PT (Prothrobim Time) (06497)Indication: Atrial fibrillation On: :58 Request METABOLIC PANEL, COMPREHENSIVE (14702)Indication: Essential hypertension with goal blood pressure less than 130/80 On: :09 Request CBC WITH MANUAL DIFF (99135)Indication: Essential hypertension with goal blood pressure less than 130/80 On: 95-Fxw-106539:09 Request MICROALBUMIN: CREATININE RATIO (49094) AND (77017)Indication: Abnormal glucose tolerance test On: :09 Request HEPATIC FUNCTION PANEL (01516) On: 16-Hyj-714192:07 Request LIPID PANEL (06421)Indication: Mixed dyslipidemia On: :07 Request PT/INR, Office (94477)Indication: Atrial fibrillation On: 42-Hxa-001480:19 Request Comments: done>Wf. PT/INR, Office (50460)Indication: Atrial fibrillation On: 98-Pxr-815972:30 Request METABOLIC PANEL, COMPREHENSIVE (53540)Indication: Essential hypertension with goal blood pressure less than 130/80 On: 74-Qyy-922455:34 Request CBC WITH MANUAL DIFF (89344)Indication: Essential hypertension with goal blood pressure less than 130/80 On: 97-Ylj-[id number]:[id number] Request HEPATIC FUNCTION PANEL ([id number])Indication: Mixed dyslipidemia On: 32-Tlk-473734:34 Request LIPID PANEL ([id number])Indication: Mixed dyslipidemia On: 78-Cli-585347:34 Request LIPID PANEL ([id number])Indication: Mixed dyslipidemia On: 93-Omh-125811:51 Request URINALYSIS W/O MICRO ([id number])Indication: Essential hypertension with goal blood pressure less than 130/80 On: 13-Pvi-815936:51 Request TSH ([id number])Indication: Essential hypertension with goal blood pressure less than 130/80 On: 14-Xde-823496:51 Request CBC WITH MANUAL DIFF ([id number])Indication: Essential hypertension with goal blood pressure less than 130/80 On: 09-Euo-608139:51 Request METABOLIC PANEL, COMPREHENSIVE ([id number])Indication: Essential hypertension with goal blood pressure less than 130/80 On: 62-Tai-871487:51 Request TSH ([id number])Indication: Essential hypertension with goal blood pressure less than 130/80 On: 48-Xqe-889874:44 Request METABOLIC PANEL, COMPREHENSIVE ([id number])Indication: Essential hypertension with goal blood pressure less than 130/80 On: 39-Wum-849051:44 Request CBC WITH MANUAL DIFF ([id number])Indication: Essential hypertension with goal blood pressure less than 130/80 On: 16-Ajp-971208:44 Request MICROALBUMIN URINE QUANT ([id number])Indication: Abnormal glucose tolerance test On: :59 Request METABOLIC PANEL, COMPREHENSIVE ([id number])Indication: Abnormal glucose tolerance test On: :57 Request CBC WITH MANUAL DIFF ([id number])Indication: Abnormal glucose tolerance test On: :57 Request LIPID PANEL ([id number])Indication: Mixed dyslipidemia On: :56 Request HEPATIC FUNCTION PANEL ([id number])Indication: Mixed dyslipidemia On: :56 Request HEPATIC FUNCTION PANEL ([id number])Indication: Mixed dyslipidemia On: :11 Request LIPID PANEL ([id number])Indication: Mixed dyslipidemia On: 50-Fuy-895752:11 Request Planned Encounters Medical; 3 Month FU - On: 10-Sep-2018 9:15 [facility] Sara Swartz CNP, CNP, Mary E Planned Procedures Aerosol Treatment ([id number])By: On: 08-Aug-2017 Intent Kaykay Layne Comments: Exp wheeze still heard after aerosol treatment-better air exchange though. Solu- Medrol Injection, 125mg On: 08-Aug-2017 Intent ([id number])By: Kaykay Layne Comments: lot [id number] mgleft gm IMas, CONTENT EDITOR Rocephin Injection, 2 Gram On: 06-Aug-2017 Intent ([id number])By: Kaykay Layne CHEST XRAY, PA & LATERAL On: 06-Aug-2017 Intent ([id number])By: Kaykay Layne Aerosol Treatment ([id number])By: On: 06-Aug-2017 Intent Kaykay Layne RIGHT BREAST ULTRASOUND ([id number])By: On: 26-Jul-2017 Intent Sara Swartz CNP, CNP, Mary E SCREENING DIGITAL TOMOSYNTHESIS OF On: 20-May-2017 Intent BREAST ([id number])By: Sara Swartz CNP, CNP, Mary E Flu Vaccine (Quadrivalent) On: 20-May-2017 Intent [id number]: Sara Swartz CNP Comments: Lot:[id number]:11/2017Dose:0.5mLRoute:IMSite:L DltdGiven By:mlVIS signed Sara HENRY MAMMOGRAM, SCREENING, BOTH BREAST On: 26-Jun-2016 Intent ([id number])By: Jacinto Sehehan MD DEXA SCAN AXIAL SKELETON On: 27-Mar-2016 Intent ([id number])By: Jacinto Sheehan MD Ultrasound - LiverBy: Jarad RUIZ, On: 19-Dec-2015 Intent Brittany Caro PNEUM VAC ADLT/IMUMNOSPR, On: 05-Jul-2015 Intent SBC/INTRM ([id number])By: Raghu Downing Comments: PNEUMOlot:[id number]:1*13*17site:LT deltoidroute:IMdose:.5mlDEMICK, SMA MAMMOGRAM, SCREENING, BOTH BREAST On: 15-Jun-2015 Intent ([id number])By: Brittany Abraham DO Cartoid DopplerBy: Brittany Abraham DO On: 15-Jun-2015 Intent A Flu Vaccine (Quadrivalent) On: 15-Jun-2015 Intent [id number]: Brittany Abraham DO Comments: Lot #:[id number] date: 01/2016Amount given:prefilled syringeSite given:L Dltd, IMGiven by: AYAKA Morris and ABN signed ADMINISTRATION OF INFLUENZA VIRUS On: 15-Jun-2015 Intent VACCINE ([id number])By: Brittany Abraham DO Overnight Pulse OX ([id number])By: Jarad On: 18-Mar-2015 Intent Brittany RUIZ PFT - CompleteBy: Brittany Abraham DO On: 18-Mar-2015 Intent Radiology - Knee - Right - Weight On: 28-Jun-2014 Intent BearingBy: Brittany Abraham DO Radiology - Knee - Left - Weight On: 28-Jun-2014 Intent BearingBy: Brittany Abraham DO Prevnar 13 ([id number])By: Jarad RUIZ, On: 08-Jun-2014 Intent Brittany Caro Comments: [id number] arm, IMMegan MAMMOGRAM, SCREENING, BOTH BREAST On: 08-Jun-2014 Intent ([id number])By: Brittany Abraham DO Comments: end jul Ultrasound - LiverBy: Jarad RUIZ, On: 08-Dec-2013 Intent Brittany Caro Inhaler Demonstration ([id number])By: On: 20-Nov-2013 Intent Tia HENRY, Magaly Tia HENRY, Sara Mc Aerosol Treatment ([id number])By: Tia On: 20-Nov-2013 Intent Sara HENRY E Sara Swartz CNP Radiology - ChestBy: Miltongordo CARL, On: 04-Nov-2013 Intent Sara Bear CNP Comments: To be Done satNovember 18 Aerosol Treatment ([id number])By: Tia On: 03-Nov-2013 Intent Sara HENRY CNP, Mary E Radiology - ChestBy: Tia HENRY, On: 03-Nov-2013 Intent [facility]NP [facility] E[facility] On: 08-Sep-2013 Intent ([id number])By: Ariane Hartman MAMMOGRAM, SCREENING, BOTH BREASTS On: 01-May-2013 Intent ([id number])By: Brittany Abraham DO Comments: jul DXA, BONE DENSITY, AXIAL SKELETON On: 01-May-2013 Intent ([id number])By: Brittany Abraham DO Comments: jul FLU VAC, SPLIT, >3 YEARS, On: 01-May-2013 Intent INTRAMUSC ([id number])By: Minnie, Comments: Lot #:[id number] date:mount given:0.5mlRoute: IMSite given: L dltdVIS and ABN signedGiven by: ILLY Payton ADMINISTRATION OF INFLUENZA VIRUS On: 01-May-2013 Intent VACCINE (G0008)By: Ariane Hartman Eprescribed prescriptions On: 01-May-2013 Intent ([id number])By: Ariane Hartman Eprescribed prescriptions On: 30-Jan-2013 Intent ([id number])By: Ariane Hartman Eprescribed prescriptions On: 31-Oct-2012 Intent (G8553)By: Ariane Hartman Eprescribed prescriptions On: 28-Jul-2012 Intent ([id number])By: Ariane Hartman MAMMOGRAM, SCREENING, BOTH BREASTS On: 07-Jul-2012 Intent ([id number])By: Brittany Abraham DO Eprescribed prescriptions On: 07-Apr-2012 Intent (G8553)By: Ariane Hartman TDAP VACCINE >7 IM ([id number])By: On: 03-Dec-2011 Intent Ariane Hartman Comments: Lot:[id number]:07/12/13Amt:prefilledRoute:IMSite:left deltGiven By: THERESA Hinson Doppler Ultrasound OtherBy: Fast On: 03-Dec-2011 Intent Brittany RUIZ Comments: both legs stat call wet read Breast Screening - BilateralBy: On: 08-Jun-2011 Intent Brittany Abraham DO FLU VAC, SPLIT, >3 YEARS, On: 05-Jun-2011 Intent INTRAMUSC (39175)By: Minnie, Comments: Lot #:[id number] date:mount given:0.5mlRoute: IMSite given:left deltGiven by: LILY Payton ADMINISTRATION OF INFLUENZA VIRUS On: 05-Jun-2011 Intent VACCINE (G0008)By: Ariane Hartman Eprescribed prescriptions On: 14-Feb-2011 Intent (G8553)By: Brittany Abraham DO IMMUNIZ ADMNIN, 1 VAC, SNGL/COMBO On: 30-Nov-2010 Intent ([id number])By: Mona Merritt LPN Comments: Lot #[id number]-01/02/12Site- left arnDose 0.7given by:Eveline ZOSTER VACC, [place] ([id number])By: René On: 30-Nov-2010 Intent Mona CARDENAS ADMINISTRATION OF INFLUENZA VIRUS On: 23-May-2010 Intent VACCINE (G0008)By: Ailyn Jones RN FLU VAC, SPLIT, >3 YEARS, On: 23-May-2010 Intent INTRAMUSC ([id number])By: Robert ROYAL, Comments: Lot #: [id number] date: mount given: 0.5 mlRoute: IMSite given: left deltoidGiven by: LELE Nguyen DXA, BONE DENSITY, AXIAL SKELETON On: 09-May-2010 Intent ([id number])By: Brittany Abraham DO Comments: nov MAMMOGRAM, SCREENING, BOTH BREASTS On: 09-May-2010 Intent ([id number])By: Brittany Abraham DO Comments: end jun Doppler Ultrasound OtherBy: [place] On: 27-Dec-2009 Intent Sara HENRY E Tia HENRY, Sara Mc Comments: left leg, today, call wet read Radiology - Foot - LeftBy: [place] On: 27-Dec-2009 Intent Sara HENRY E Tia HENRY, Sara Mc Comments: today call wet read MAMMOGRAM, SCREENING, BOTH BREASTS On: 24-Jun-2009 Intent ([id number])By: Maral Krishnan Inhaler Demo ([id number])By: Shelton RUIZ, On: 09-Jun-2009 Intent [facility] - Chest- PA and LatBy: On: 09-Jun-2009 Intent Chikis Peoples DO Aerosol Treatment (44498)By: On: 09-Jun-2009 Intent Chikis Peoples DO Comments: less irritablilty Wax Currettes (83781)By: Shelton On: 09-Jun-2009 Intent Chikis RUIZ Comments: tolerated well - clean -currette used Ear Irrigation (03180)By: Shelton On: 09-Jun-2009 Intent Chikis RUIZ Comments: pt tolerated well Spirometry (69401)By: Shelton RUIZ On: 09-Jun-2009 Intent Chikis Comments: poor effort started to have coughing fit FLU VAC, SPLIT, >3 YEARS, On: 19-May-2009 Intent INTRAMUSC ([id number])By: Ailyn Jones RN IMMUNIZ ADMNIN, 1 VAC, SNGL/COMBO On: 19-May-2009 Intent ([id number])By: Ailyn Jones RN Echo CompleteBy: Brittany Abraham DO On: 23-Feb-2009 Intent Echo CompleteBy: Brittany Abraham DO On: 10-Jan-2009 Intent PNEUM VAC ADLT/IMUMNOSPR, On: 02-Aug-2008 Intent SBC/INTRM ([id number])By: Ran, Comments: Lot #[id number] date:mount given:0.5Site given: right deltoidGiven by:Wf. Rios ADMINISTRATION OF PNEUMOCOCCAL On: 02-Aug-2008 Intent VACCINE (G0009)By: Blanca Tong DXA, BONE DENSITY, AXIAL SKELETON On: 06-Apr-2008 Intent (69895)By: Fast DO, Brittany A FLU VAC, SPLIT, >3 YEARS, On: 13-Jun-2007 Intent INTRAMUSC ([id number])By: Savannah Vargas IMMUNIZ ADMNIN, 1 VAC, SNGL/COMBO On: 13-Jun-2007 Intent ([id number])By: Savannah Vargas Overnight Pulse Ox([id number])By: On: 05-May-2007 Intent Blanca Tong Echo CompleteBy: Fast DO, Brittany A On: 18-Apr-2007 Intent Overnight Pulse OX ([id number])By: Fast On: 18-Apr-2007 Intent DO, Brittany A MAMMOGRAM, SCREENING, BOTH BREASTS On: 14-May-2006 Intent ([id number])By: Jarad DO, Brittany A EKG (16385)By: Fast DO, Brittany A On: 14-May-2006 Intent Echo CompleteBy: Fast DO, Brittany A On: 14-May-2006 Intent Planned Medications INJECTION, CEFTRIAXONE SODIUM, PER 250 MG Ordered: 06-Aug-2017 Pending Kaykay Layne INJECTION, METHYLPREDNISOLONE SODIUM SUCCINATE, UP TO 125 MG Ordered: 08-Aug-2017 Pending Kaykay Layne Instructions Name Dates Details CKD (chronic kidney disease), stage III : DISCONTINUED - CBC, PLATELETS & AUT DIFF (76976) Indication: CKD (chronic kidney disease), stage III CKD (chronic kidney disease), stage III : DISCONTINUED - METABOLIC PANEL, COMPREHENSIVE (38939) Indication: CKD (chronic kidney disease), stage III [...] fibrillation : DISCONTINUED - PT (PROTHROMBIN TIME) (23045) Indication: Atrial fibrillation Atrial fibrillation : DISCONTINUED - PT (PROTHROMBIN TIME) (98833) Indication: Atrial fibrillation Lower GI bleed : DISCONTINUED - CBC, PLATELETS & AUT DIFF (59109) Indication: Lower GI bleed Lower GI bleed : DISCONTINUED - METABOLIC PANEL, COMPREHENSIVE (39142) Indication: Lower GI bleed Diabetes mellitus type [...] : DISCONTINUED - Hemoglobin Glyclated (HGB A1C) (42467) Indication: Diabetes mellitus type II, controlled Osteopenia : DISCONTINUED - Vitamin D Hydroxy (76471) Indication: Osteopenia Essential hypertension with goal blood pressure less than 130/80 : DISCONTINUED - METABOLIC PANEL, COMPREHENSIVE (01906) Indication: Essential hypertension with goal blood pressure less than 130/80 Other chronic nonalcoholic liver disease : DISCONTINUED - LGGUS-[id number]-[id number] (68323) Indication: 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 : DISCONTINUED - PTT (Activated Partial Thromboplastin Time) (14571) Indication: 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 : DISCONTINUED - PT (PROTHROMBIN TIME) (61912) Indication: Other chronic nonalcoholic liver disease Atrial fibrillation : DISCONTINUED - PT (PROTHROMBIN TIME) (03773) Indication: Atrial fibrillation Atrial fibrillation : DISCONTINUED - PT (PROTHROMBIN TIME) (93795) Indication: Atrial fibrillation Atrial fibrillation : DISCONTINUED - BLD CNT, COMPL CBC W/AUTO DIFF WBC (71263) Indication: Atrial fibrillation Anemia, unspecified : DISCONTINUED - CBC WITH MANUAL DIFF (16795) Indication: Anemia, unspecified Mild vitamin D deficiency : DISCONTINUED - Vitamin D Hydroxy (18281) Indication: Mild vitamin D deficiency Mild vitamin D deficiency : DISCONTINUED - Vitamin D Hydroxy (17036) Indication: Mild vitamin D deficiency Abnormal glucose tolerance test : DISCONTINUED - METABOLIC PANEL, COMPREHENSIVE (08334) Indication: Abnormal glucose tolerance test Abnormal glucose tolerance test : DISCONTINUED - METABOLIC PANEL, COMPREHENSIVE (33132) Indication: Abnormal glucose tolerance test Mixed dyslipidemia : DISCONTINUED - LIPID PANEL (15827) Indication: Mixed dyslipidemia Mixed dyslipidemia : DISCONTINUED - LIPID PANEL (16326) Indication: Mixed dyslipidemia Mixed dyslipidemia : DISCONTINUED - HEPATIC FUNCTION PANEL (01851) Indication: Mixed dyslipidemia Anemia, unspecified : DISCONTINUED - CBC WITH MANUAL DIFF (83570) Indication: Anemia, unspecified Diabetes mellitus type 2, [...] Note for Transition into care: Again to [facility] End: 24-Mar-2018 10:05 n for GI Bleed 03-16-18 Dr. Graham..... Gi doce at [facility] , A pos. on 03-19 Bunm 19 creat 1.53 last hemoglobin on 03-19 discharge date 8.4. Got iron infusion at [facility] and to get on Sat. by Dr. Michelle She wi ll see Dr. Pacheco he is GI at [facility] Mar [address] Graham saw [...] Note for Transition into care: Sent to [facility] for acute blood loss from coumadin, found ulcertations in the duodenum , no dieulofay lesions or AVM's procedue done by An [facility]. Got 2 units FFP and 8 units of blood, at [facility] and 6 more at [facility]. INR was 3.7 and day before 2.1Pt [...] reevaluate ??Asking if still needs to see filter tank tender helper Dr. Jean-Baptisteting periodic infusions and iron supplements, [...] reevaluate Asking if still needs to see filter tank tender helper Dr. Caruso periodic infusions and iron supplementsEncounter [...] for chroni c medical issues: Seeing new boat person Dr. Merchant Has had iron levels and iron infusions . Asking if still needs to see filter tank tender helper Dr. MccurdyGetting periodic infusions and iron supplements, [...] explosive GI Bleed wten tot ER at [facility] with CBC with hemoglobin of 8.7 [...] patient does not have 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 of district attorney or living will. The patient has noticed lack of energy. Other providers contributing to the patient's care are electrical test engineer (Dr. Raymundo), mailer apprentice (Leslie) and other: (chiropractor- once monthly). 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 The patient has noticed lack of energy. Other providers contributing to the patient's care are electrical test engineer (Dr. Raymundo) and other: (chiropractor- once monthly). [...] to 110's/60's). 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 was at [facility] for Heart cath. 07-30-2006). The patient [...] (427.31), Hyperlipidemia, Mixed (272.2), Coronary atherosclerosis of tribal coronary vessel (414.01) [facility] Historical [...]
--- OUTSIDE RECORDS SUMMARY | 2018-11-06 12:08 | XMS RPT_ITS | Continuity of Care Document ---
:1945 Author Organization [facility] Address [facility] [address] Phone Care Team Providers Name Role Phone Sara Swartz CNP Unavailable Jarad Brittany RUIZ Gordo Unavailable Natalia Mccurdy Unavailable Mackenzie Blanton Unavailable Unavailable Long SITE LEADER, Mona Kemp Unavailable Unavailable Jayda Frias Unavailable Unavailable Alana Mathis Unavailable Unavailable Vishal Bradford Unavailable Unavailable Slarb SITE LEADER, Alana Unavailable Unavailable Unavailable Unavailable Problems Name [...] creat 1.75 Status: Active Coronary atherosclerosis of pauma coronary vessel (I25.10, 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 Viral Status: Active Deliveries (Parity) Comments: 1 Status: Active Diabetes mellitus type 2, uncontrolled, without complications (E11.65, 250.02) Comments: HBA1c 6.0(07/04)HBA1c 6.1( Was 6.0 10/04).A1c 5.5 with prn trajentatakes tradjenta 4- 5 X /month when going for a republican and eating sweetsFBS: once in a while [...] diet and exercise.Patient has 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 of trust and estates attorney and living will.( and daughter) Status: [...] Hypoxia (R09.02, 799.02) Comments: prescribed oxygen by [facility] at discharge, will ask her to [...] GI bleed (K92.2, 578.9) Comments: Admitted to [place] with hemoglobin, 5.2 got 7 units of blood, was 8.7 on February 10, 2018,8.5 on Holly 18, 2018Admitted to [place] 03-19-18 with GI bleed last hemoglobin 03-19 is 8.4 Status: Active Lymphedema (I89.0, 457.1) [facility]: Active [place] (myocardial infarction) (I21.9, 410.90) Comments: per elevated [...] 278.01) Comments: 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 [employer] [facility] [employer] [facility] work Status: 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, [...] atreium Left atrium enlargement, Rigoberto sending to [facility] main campus for eval Status: Active Medications [...] Refills: 0 Ordered:20-May-2017 Tiffanihamiltongordo HENRY Sara Raymond WIND OPERATIONS SUPERVISOR, Sara Mc Start : 20-May-2017 Active Furosemide 40 MG Oral Tablet 1 (one) Tablet daily for 0 days Quantity: 90 {Tablet} Refills: 3 Ordered:06-Mar-2018 Tia WIND OPERATIONS SUPERVISOR, Sara Raymond WIND OPERATIONS SUPERVISOR, Sara Mc Start : 06-Mar-2018 Active HydrALAZINE HCl 25 MG Oral Tablet 1 Tablet bid for 90 days Quantity: 180 {Tablet} Refills: 3 Ordered:10-Jun-2018 Tia CARL Sara Raymond WIND OPERATIONS SUPERVISOR, Sara Mc Start : 10-Jun-2018 Active LANCETS (Miscellaneous) 1 (one) Misc daily for 0 days Quantity: 100 {Misc} Refills: 3 Ordered:31-Oct-2012 Ariane Hartman Start : 28-Jul-2012 Active Comments:Reli-On Lancets Magnesium Oxide 400 (240 Mg) MG Oral Tablet 1 (one) Tablet qd for 0 days Quantity: 60 {Tablet} Refills: 4 Ordered:31-Dec-2016 Tia CARL Sara Raymond WIND OPERATIONS SUPERVISOR, Sara Mc Start : 31-Dec-2016 Active Metoprolol Tartrate 100 MG Oral Tablet 1 (one) Tablet bid for 90 days Quantity: 180 {Tablet} Refills: 3 Ordered:16-Apr-2018 Tia CARL Sara Raymond WIND OPERATIONS SUPERVISOR, Sara Mc Start : 16-Apr-2018 Active [...] Allergy 32 MCG/ACT Nasal Suspension 2 (two) [place] In each nostril Daily for 1 days [...] Quantity: 30 {Tablet} Refills: 0 Ordered:01-May-2011 Tia WIND OPERATIONS SUPERVISOR, Sara Raymond WIND OPERATIONS SUPERVISOR, Sara Mc Start : 01-May-2011 End : 01-May-2011 Discontinued CO-Q 10 [employer]-3 Fish Oil Oral Capsule 1 (one) Capsule [...] 20-May-2017 End : 10-Jun-2018 Discontinued VITAMIN D, [id number] (Oral Capsule) 1 (one) Capsule q week for 0 days Quantity: 12 {Capsule} Refills: 0 Ordered:03-Feb-2010 Ariane Hartman Start : 03-Feb-2010 End : 31-Aug-2011 Discontinued Comments:This order discontinued per [facility]. VYTORIN, 10-20MG (Oral Tablet) 1 [...] Comments: secondary to sepsis, dehyrdation, and ? FL now improving was 2.05 now 1.21 going [...] Visit Report Result: Comments: See Note; NOTES: [facility] [place] [address] OFFICE VISIT Date of Service: 05/27/18 1342 MR#: [id number] Acct: [id number] Name: GABBI ROLLE Rep #: [id number] : 1945 From: Halley Khan MD Age/Sex: [...] GI bleed and was urgently transferred to [facility] where she underwent a nuclear medicine GI [...] Q4H PRN PRN 01/03/18 [Combivent Respimat Inhal [place]] Furosemide [Lasix] 40 mg PO BID 01/15/18 Primary Care Provider: Sara Swartz [facility] Provider: Halley Khan MD 05/27/18 1411 <Electronically signed by Halley Khan MD> Date Halley Khan MD Cosigner Signature: Date (if applicable) CC: 26-May-2018 Cardiology Visit Report Result: Comments: See Note; NOTES: [facility] [address] [place] [address] OFFICE VISIT Date of Service: 05/26/18 MR#: [id number] Acct: [id number] Name: GABBI ROLLE Rep #: [id number] : 1945 Provider: Niraj Raymundo MD Age/Sex: 73/F Location: [facility] Status: Signed HPI HPI Chief Complaint: [...] syncopal episodes. She continues to see the legal recruiter for follow-up of her blood work. 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 Plan Detail Follow Up 3 Months (napkin band wrapper) Coding Level of Care Code Off vis,est,level 5 Diagnoses Nonrheumatic aortic (valve) stenosis I35.0 Nonrheumatic mitral (valve) insufficiency I34.0 Othe r secondary pulmonary hypertension I27.29 Essential hypertension I10 Hypertension type: essential hypertension Chronic atrial fibrillation I48.2 Atherosclerosis of pauma coronary artery of pauma heart without angina pectoris I25.10 [place] vs. transplanted heart: pauma heart CKD (chronic kidney disease), stage III N18.3 Anemia, unspecified type D64.9 Anemia type: unspecified type Coding Level of C are Code Off vis,est,level 5 Diagnoses Nonrheumatic aortic (valve) stenosis I35.0 Nonrheumatic mitral (valve) insufficiency I34.0 Other secondary pulmonary hypertension I27.29 Essential hypertension I1 0 Hypertension type: essential hypertension Chronic atrial fibrillation I48.2 Atherosclerosis of pauma coronary artery of pauma heart without angina pectoris I25.10 [place] vs. transplanted heart: lashell ve heart CKD (chronic kidney disease), stage III N18.3 Anemia, unspecified type D64.9 Anemia type: unspecified type 05/26/18 1541 <Electronically signed by Niraj Raymundo MD> Date Niraj Raymundo MD Cosigner Signature: Date (if applicable) CC: Sara Swartz DANIELE 23-May-2018 Echo Transesophageal (YOUNG) Result: Comments: See Note; NOTES: [facility] Cardiovascular Services [address] [place] [address] Echo Transesophageal (YOUNG) 05/23/18 0924 MR#: [id number] Acct: [id number] Name: GABBI GATES Rep #: [id number] : 1945 73 From: Niraj Raymundo MD Attending Dr: Niraj Raymundo MD Status: REG CLI Ordering Dr: Niraj Raymundo MD Date: 05/23/18 Location: [facility] Sex: F C Admitted: Reason For Study: Aortic Stenosis Medication YOUNG probe passed with minimal difficulty. No complications were noted. Topex Topical [place] given X4 metered doses orally. Versed 2 [...] Date Niraj Raymundo MD CC: Sara caro LOGISTICS LEAD; Niraj Raymundo MD Date Dictated: 05/23/18 0924 Date Transcribed: 05/23/181511 Scanning Tech: Signed 16-May-2018 12 Lead EKG performed by ABHAY Result: Comments: See Note; NOTES: [facility] [address] [place] [address] 12 Lead EKG performed by ABHAY 05/16/18 0957 MR#: [id number] Acct: [id number] Name: GABBI RODAS Rep #: [id number] : 1945 72 From: Niraj Raymundo MD Attending Dr: Niraj Raymundo MD Status: DEP AMB Ordering Dr: Niraj Raymundo MD Date: 05/16/18 Location: [facility] Sex: F C Admitted: ORDER # : [id number] BMS/12 Lead EKG performed by [facility] Possible atrial fibrillation Low voltage -possible pulmonary disease. ABNORMAL 05/19/18 0730 <Electronically signed by Niraj Raymundo MD> John e Niraj Raymundo MD CC: Sara Swartz NP Date Dictated: 05/16/18956 Date Transcribed: 05/16/18956 Scanning Tech: CO Signed 03-May-2018 Echocardiogram Complete Result: Comments: See Note; NOTES: [facility] Cardiovascular Services [address] [place] [address] Echo Complete 05/02/18 1405 MR#: [id number] Acct: [id number] Name: GABBI ROLLE Rep #: [id number] : 1945 72 From: Niraj Raymundo MD [...] ____ Niraj Raymundo MD CC: Sara Swartz LOGISTICS LEAD; Niraj Raymundo MD Date Dictated: 05/02/18 1405 Date Transcribed: 05/03/18 1436 Scanning Tech: Signed 29-Apr-2018 Oncology Visit Report Result: Comments: See Note; NOTES: [facility] [address] [place] [address] OFFICE VISIT Date of Service: 04/29/18 1417 MR#: [id number] Acct: [id number] Name: GABBI ROLLE Rep #: [id number] : 1945 From: Halley Khan MD Age/Sex: [...] GI bleed and was urgently transferred to [facility] where she underwent a nuclear medicine GI [...] Q4H PRN PRN 01/03/18 [Combivent Respimat Inhal [place]] Furosemide [Lasix] 40 mg PO BID 01/15/18 Primary Care Provider: Sara Swartz Referring Provider: Halley Khan MD [id number] <Electronically signed by Halley Khan MD> Date Halley Khan MD Cosigner Signature: Date (if applicable) CC: 29-Apr-2018 Cardiology Visit Report Result: Comments: See Note; NOTES: [facility] [address] [place] [address] OFFICE VISIT Date of Service: 04/29/18 MR#: [id number] Acct: [id number] Name: GABBI ROLLE Rep #: [id number] : 1945 Provider: Niraj Raymundo MD Age/Sex: 72/F Location: [facility] Status: Signed [facility] Chief Complaint: Follow up Details: GABBI [...] syncopal episodes. She continues to see the legal recruiter for follow-up of her blood work. Her [...] Confirmed 04/29/18] Ipratropium/Albuterol Sulfate [Combivent Respimat Inhal [place]] 2 puff IH Q 4H PRN PRN [...] PO PRN PRN 04/29/18 [History Confirmed 04/29/18] [facility] Medical History Atherosclerotic heart disease of pauma zita 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 pectoris (Chronic) [...] vessel or lesion type , unspecified whether pauma or transplanted heart I25.10 Plan She does [...] above. Plan Detail Follow Up 4 Months ([facility]) Coding Level of Care Code Off vis,est,level 5 Diagnoses Chronic atrial fibrillation I48.2 Essential hypertension I10 Hypertension type: essential hypertension Coronary artery disease, angina p resence unspecified, unspecified vessel or lesion type, unspecified whether pauma or transplanted heart I25.10 Coronary Disease-Associated Artery/Lesion type: unspecified vessel or lesion type [place] v s. transplanted heart: unspecified whether pauma or transplanted heart Associated angina: angina presence [...] unspecified vessel or lesion type, unspecified whether pauma or transplanted heart I25.10 Coronary Disease-Associated Artery/Lesion type: unspecified vessel or lesion type [place] vs. transplanted heart: unspecified whether pauma or transplanted heart Associated angina: angina presence [...] Visit Report Result: Comments: See Note; NOTES: [facility] [address] [facility] [place] [address] OFFICE VISIT Date of Service: 04/02/18 1329 MR#: [id number] Acct: [id number] Name: GABBI ROLLE Rep #: [id number] : 1945 From: Halley Khan MD Age/Sex: [...] GI bleed and was urgently transferred to [facility] where she underwent a nuclear medicine GI [...] GI blood loss Despite oral iron supplementation (ad terminal makeup operator), . Patient was transfused with packed red [...] Q4H PRN PRN 01/03/18 [Combivent Respimat Inhal [place]] Furosemide [Lasix] 40 mg PO BID 01/15/18 Primary Care Provider: Sara Swartz Referring Provider: Halley olivares MD 04/02/18 1419 <Electronically signed by Halley Khan MD> Date Halley Khan MD Cosigner Signature: Date __ (if applicable) CC: 05-Mar-2018 Oncology Visit Report Result: Comments: See Note; NOTES: [facility] [address] [place] [address] OFFICE VISIT Date of Service: 03/05/18 1431 MR#: [id number] Acct: [id number] Name: GABBI ROLLE Rep #: [id number] : 1945 From: Halley Khan MD Age/Sex: [...] GI bleed and was urgently transferred to [facility] where she underwent a [facility] medicine GI blood loss imaging followed [...] Dr. Hobbs, ) despite oral iron supplementation (ad terminal makeup operator) . Patien t was transfused with packed [...] sa Referring Provider: Halley Khan MD 03/05/18 5880 <Electronically signed by Halley Khan MD> Date Halley yee Signature: Date (if applicable) CC: 27-Feb-2018 12 Lead Electrocardiogram Result: Comments: See Note; NOTES: [facility] Cardiovascular Services [address] [place] [address] 12 Lead EKG 02/23/18 1015 MR#: [id number] Acct: [id number] Name: GABBI ROLLE Rani p #: [id number] : 1945 72 From: Saleem Zavala MD [...] Abnormal ECG Confirmed by SALEEM ZAVALA MD ([id number]), tape editor JOSE GUADALUPE ROLLEETTE ([id number]) on 02/27/2018 1:03:39 PM Referred By: Sara Swartz Confirmed By:SALEEM ZAVALA MD 02/27/18 1303 Date __ Saleem Zavala MD CC: Sara Swartz NP; Nelson Soria MD Signed 23-Feb-2018 Emergency Department Summary Result: Comments: See Note; NOTES: [facility] Medical Records Department [address] [place] [address] Emergency Department Summary 02/23/18 1009 MR#: [id number] Acct: [id number] Name: GABBI ROLLE Rep #: [id number] : 1945 72 From: Nelson Soria MD [...] recently hospitalized about 3 weeks ago at [facility] for GI bleed. She was seen here initially, and was found to be significantly anemic with a supra therapeutic INR. She was started on a Protonix drip. S he underwent a bleeding scan which showed 2 areas of bleeding from the duodenum and the ascending colon. Given her multiple comorbidities, she was transferred to the ICU at [facility]. While there, patient was transfused. [...] based on her recent hospitalization [facility] and multiple comorbidities, it was thought that she would best be served back at a tertiary facility. Patient was started on a Protonix drip given history of duodenal ulcer and bleeding. The patie nt was discussed with Dr. Rowe at [facility] who excepted the patient transfer. She will be transferred to the intensive care unit. Treatment Plan: [] Disposition: Transfer Impression: 1. GI bleed 2. Symptomatic anemia This note was generated with [employer]andem[employer] dictation software. It may contain incorrect words, [...] problems, contact your Primary Care Provider. Call [employer] [facility] ([phone]) or report to the closest Emergency Room. Call 911 if necessary. 02/23 1228 <Electronically signed by Nelson Soria MD> Date Nelson Soria MD Cosigner Signature (If Indicated): Date CC: Sara Swartz NP 23-Feb-2018 Chest 1 View (Portable) Result: Comments: See Note; NOTES: [facility] Imaging Services [address] [place] [address] Chest 1 View (Portable) MR#: [id number] Acct: [id number] Name: GABBI ROLLE Rep #: [id number] : 1945 F 72 From: Heriberto Dickey PCP: Sara Swartz NP Status: REG ER Study: Chest 1 View (Portable) Date of Exam: 02/23/18 Exam# [id number] Ordering Dr: Nelson Soria MD STUDY: X-RAY [...] CC: Sara Swartz NP; Nelson Soria MD Scanning Tech: Signed 06-Feb-2018 12 Lead Electrocardiogram Result: Comments: See Note; NOTES: [facility] Cardiovascular Services [address] [place] [address] 12 Lead EKG 02/04/18 1427 MR#: [id number] Acct: [id number] Name: GABBI ROLLE Re p #: [id number] : 1945 72 From: Niraj Raymundo MD [...] ECG Confirmed by RIGOBERTO BALDWIN, NIRAJ ([id number]), tape editor JONATHON ROLLE ([id number]) on 02/06/2018 9:00:22 AM Referred By: SAMMIE Confirmed By:NIRAJ RAYMNUDO MD 02/06/18 0900 Date Niraj Raymundo MD CC: Sara Swartz NP; Hayde Ruvalcaba DO Signed 04-Feb-2018 Emergency Department Summary Result: Comments: See Note; NOTES: [facility] Medical Records Department [address] [place] [address] Emergency Department Summary 02/04/18 1225 MR#: [id number] Acct: [id number] Name: GABBI ROLLE Rep #: [id number] : 1945 72 From: Hayde Ruvalcaba DO [...] is pe nding Treatment Plan: [Transfer to [facility] I discussed case with [employer] factory worker who accepted transfer of the patient. I did give patient 5 mg of vitamin K subcu. Disposition: [Transfer] Impre ssion: Upper GI bleed and lower GI bleed [] This note was generated with iCurrentation software. It may contain incorrect words, spelling, [...] your Primary Care Provider. Call [facility] ([phone]) or report to the closest Emergency Room. Call 911 if necessary. 02/04/18 1715 <Electronically signed by Hayde Ruvalcaba DO> Date Hayde Ruvalcaba DO Cosigner Signature (If Indicated): Da te CC: Sara Swartz NP 04-Feb-2018 GI Bleed Scan Result: Comments: See Note; NOTES: [facility] Imaging Services [address] [place] [address] GI Bleed Scan MR#: [id number] Acct: [id number] Name: GABBI ROLLE Rep #: [id number] : 1945 F 72 From: Manuel Montoya MD PCP: Sara Swartz NP Status: REG ER Study: GI Bleed Scan Date of Exam: 02/04/18 Exam# [id number] Ordering Dr: Hayde Ruvalcaba DO NM GI [...] , NM/GI Bleed Scan CC: Sara Swartz LOGISTICS LEAD; Hayde Ruvalcaba DO Scanning Tech: Signed 29-Jan-2018 Oncology Visit Report Result: Comments: See Note; NOTES: [facility] [address] [place] [address] OFFICE VISIT Date of Service: 01/29/18 1339 MR#: [id number] Acct: [id number] Name: GABBI ROLLE Rep #: [id number] : 1945 From: Halley Khan MD Age/Sex: [...] puff IH DAILY 01/03/18 [Combivent Respimat Inhal [place] ] Furosemide [Lasix] 40 mg PO BID 01/15/18 Primary Care Provider: Sara Swartz Referring Provider: Halley Khan MD 01/29/18 7567 <Electronically signed by Halley Khan MD> John e Halley Khan MD Cosigner Signature: Date (if applicable) CC: Sara Swartz 16-Jan-2018 Surgery Visit Report Result: Comments: See Note; NOTES: [facility] [place] [address] OFFICE VISIT Date of Service: 01/15/18 MR#: [id number] Acct: [id number] Name: GABBI ROLLE Rep #: [id number] : 1945 Provider: Bo Madrid MD Age/Sex: 72/F Location: [facility] Status: Signed Intake Intake Visit Reasons: [...] Confirmed 01/08/18] Ipratropium/Albuterol Sulfate [Combivent Respimat Inhal [place]] 1 puff IH DAILY 01/03/18 [History Confirmed 01/08/18] Furosemide [Lasix] 40 mg PO BID 01/15/18 [History Confirmed 01/15/18] PFSH Medical History Atherosclerotic heart disease of pauma coronary artery with out angina pectoris (Chronic) [...] no longer needed. Bo Madrid MD Pager: [facility] [address] [place] [address], [address] [place] [address] Office: Fax: Coding Level of Care Code Global Post Op Diagnoses Encounter for insertion of venous access port Z45.2 01/16/18 0936 <Electronically signed by Bo Madrid MD> D ate Bo Madrid MD Cosigner Signature: Date (if applicable) CC: Sara Swartz NP 08-Jan-2018 Operative Report Result: Comments: See Note; NOTES: [facility] Medical Records Department [address] [place] [address] [place] [address] Operative Report 01/08/18 1157 MR#: [id number] Acct: [id number] Name: FINA ROLLE Rep #: [id number] : 1945 72 From: Bo Madrid MD PCP: Sara Swartz NP Status: REG SDC Y Location: [place] [address] Problem List (1) Encounter for insertion of venous access port Status: [place] (2) Anemia Status: Chronic Qualifiers: Anemia type: [...] x-ray will be obtained. Grafts/Implants Used: 8 Syriac PowerPort and right IJ 01/08/18 1158 <Electronically signed by Bo Madrid MD> Date __ Bo Madrid MD CC: Sara Swartz NP; Bo Madrid MD Signed 08-Jan-2018 CXR for Line Placement Result: Comments: See Note; NOTES: [facility] Imaging Services [address] [place] [address] CXR for Line Placement MR#: [id number] Acct: [id number] Name: GABBI ROLLE Rep #: [id number] : 1945 F 72 From: Irvin Cho MD PCP: Sara Swartz NP Status: REG [facility] Study: CXR for Line Placement Date of Exam: 01/08/18 Exam# [id number] Ordering Dr: Bo Madrid MD STUD Y: [...] Irvin Cho MD at 12:57 EDT Tel [phone], Service support , CC: Sara Swartz NP; Bo Madrid MD Scanning Tech: Signed 08-Jan-2018 Discharge Instruction Result: Comments: See Note; NOTES: [facility] Medical Records Department [address] [place] [address] Instructions for Home/Discharge Instructions 01/08/18 1155 MR#: [id number] Acct: [id number] Name: GABBI ROLLE Rep #: [id number] : 1945 72 From: Bo Madrid MD PCP: Tia SANABRIA, Sara Status: REG [facility] Discharge Diet: No Restrictions - Pain medication [...] 11/29/17 Ipratropium/Albute rol Sulfate [Combivent Respimat Inhal [place]] 1 puff IH DAILY 01/03/18 Primary Care Physician: Sara Swartz [Primary Care Provider] - Please Follow Up With: Bo Madrid MD When: call tomorrow to make 2 week follow up appt [phone] 01/08/18 1156 <Electronically signed by Bo Madrid MD> Date Bo Madrid MD CC: Sara Swartz NP 03-Jan-2018 Surgery Visit Report Result: Comments: See Note; NOTES: [facility] [address] [place] [address] OFFICE VISIT Date of Service: 01/03/18 MR#: [id number] Acct: [id number] Name: GABBI ROLLE Alexandro Rep #: [id number] : 1945 Provider: Bo Madrid MD Age/Sex: 72/F Location: [facility] Status: Signed Intake Vital Signs01/03/18 Height 5 ft 7 in 01/03/18 Weight: 378 lb 9 oz Body Mass Index (BMI) 59.3 Intake Visit Reasons: Port Placement Chief Complaint: port consult City Administrator Required: No Is patient in pain?: No [...] Confirmed 01/03/18] Ipratropium/Albuterol Sulfate [Combivent Respimat Inhal [place]] 1 puff IH 01/03/18 [History Confirmed 01/03/18] Is last menstrual p eriod known: No Post menopausal: Yes Patient : No PFSH Medical History Atherosclerotic heart disease of pauma coro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 pect veronika (Chronic) [...] the day of. Bo Madrid MD Pager: [facility] [address] [place] [address], [address] [place] [address] Office: Coding Level of Care Code Off vis,new,level 3 Diagnoses Encounter for insertion of venous access port Z45.2 8 1517 <Electronically signed by Bo Madrid MD> Date Bo Madrid MD Cosigner Signature: Date (if applicable) CC: Sara Swartz LOGISTICS LEAD; Halley Khan MD 01-Jan-2018 Oncology Visit Report Result: Comments: See Note; NOTES: [facility] [address] [place] [address] OFFICE VISIT Date of Service: 01/01/18 1254 MR#: [id number] Acct: [id number] Name: GABBI ROLLE Rep #: [id number] : 1945 From: Halley Khan MD Age/Sex: [...] CXR (Obl/Decub/A/L) Result: Comments: See Note; NOTES: [facility] Imaging Services [address] [place] [address] Special CXR (Obl/Decub/A/L) MR#: [id number] Acct: [id number] Name: GABBI ROLLE Rep #: [id number] : 1945 F 72 From: Geovanni Roper MD PCP: Sara Swartz NP Status: REG CLI Study: Special CXR (Obl/Decub/A/L) Date of Exam: 12/23/17 Exam# [id number] Ordering Dr: Carlos Nelson MD STUDY: X-RAY CHEST REASON FOR EXAM: Female, 72 years old. Dyspnea TECHNIQUE: Bilateral decubitus. COMPARISON: Radiographs of the same date.. FINDINGS: On the l eft there is a small layering pleural effusion. On the right no significant free- flowing fluid. Electronically Signed: Geovanni Roper MD at 16:00 EDT , Service support 08-26 [phone], RAD/Special CXR (Obl/Decub/A/L) CC: Sara Swartz NP; Carlos Nelson MD Scanning Tech: Signed 23-Dec-2017 Special CXR (Obl/Decub/A/L) Result: Comments: See Note; NOTES: [facility] Imaging Services [address] [place] [address] Special CXR (Obl/Decub/A/L) MR#: [id number] Acct: [id number] Name: GABBI ROLLE Rep #: [id number] : 1945 F 72 From: Geovanni Roper MD PCP: Sara Swartz NP Status: REG CLI Study: Special CXR (Obl/Decub/A/L) Date of Exam: 12/23/17 Exam# [id number] Ordering Dr: Carlos Nelson MD STUDY: X-RAY [...] CC: Sara Swartz NP; Carlos Nelson MD Scanning Tech: Signed 23-Dec-2017 Chest PA and Lateral Result: Comments: See Note; NOTES: [facility] Imaging Services [address] [place] [address] Chest PA and Lateral MR#: [id number] Acct: [id number] Name: GABBI ROLLE Rep #: [id number] : 1945 F 72 From: Geovanni Roper MD PCP: Sara Swartz NP Status: REG CLI Study: Chest PA and Lateral Date of Exam: 12/23/17 Exam# [id number] Ordering Dr: Carlos Nelson MD STUDY: X-RAY [...] , Service support , CC: Sara Swartz LOGISTICS LEAD; Carlos Nelson MD Scanning Tech: Signed 06-Dec-2017 Oncology Visit Report Result: Comments: See Note; NOTES: [facility] [place] [address] OFFICE VISIT Date of Service: 12/05/17 1029 MR#: [id number] Acct: [id number] Name: GABBI ROLLE Rep #: [id number] : 1945 From: Halley Khan MD Age/Sex: [...] in 2016). Patient is being seen in [facility] for chronic, recurrent anemia that has been [...] View (Portable) Result: Comments: See Note; NOTES: [facility] Imaging Services [address] [place] [address] Chest 1 View (Portable) MR#: [id number] Acct: [id number] Name: GABBI ROLLE Rep #: [id number] : 1945 F 72 From: Norah Arreaga MD PCP: Sara Swartz NP Status: REG ER Study: Chest 1 View (Portable) Date of Exam: 11/29/17 Exam# [id number] Ordering Dr: Gabi Gardner MD STUDY: X-R [...] , Service support , CC: Sara Swartz LOGISTICS LEAD; Gabi Gardner MD Scanning Tech: Signed 22-Nov-2017 12 Lead Electrocardiogram Result: Comments: See Note; NOTES: [facility] Cardiovascular Services [address] [place] [address] 12 Lead EKG 11/18/17 1440 MR#: [id number] Acct: [id number] Name: GABBI ROLLE Alexandro Saravia p #: [id number] : 1945 72 From: Niraj Raymundo MD [...] Abnormal ECG Confirmed by RIGOBERTONIRAJ ANNE MD ([id number]), tape editor JONATHON ROLLE ([id number]) on 11/22/2017 12:57:07 PM Referred By: JOO Confirmed By:NIRAJ RAYMUNDO MD 11/22/17 1257 Date Niraj Raymundo MD CC: Sara Swartz NP; Ariane Lakhani MD Signed 18-Nov-2017 Emergency Department Summary Result: Comments: See Note; NOTES: [facility] Medical Records Department [address] [place] [address] Emergency Department Summary 11/18/17 1735 MR#: [id number] Acct: [id number] Name: GABBI ROLLE Rep #: [id number] : 1945 72 From: Ariane Lakhani MD [...] weeks to see benefit. 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 It may contain incorrect words, [...] your Primary Care Provider. Call [facility] ([phone]) or report to the closest Emergency Room. Call 911 if necessary. 11/18/171747 <Electronica lly signed by Ariane Lakhani MD> Date Ariane Lakhani MD Cosigner Signature (If Indicated): Date CC: Sara Swartz LOGISTICS LEAD 18-Nov-2017 Discharge Instruction Result: Comments: See Note; NOTES: [facility] Medical Records Department [address] [address] Discharge Instruction 11/18/171739 MR#: [id number] Acct: [id number] Name: GABBI ROLLE Rep #: [id number] : 1945 72 From: Ariane Lakhani MD [...] your Primary Care Provider. Call [facility] ([phone]) or report to the closest Emergency Room. Call 911 if necessary. 11/18/17 1743 <Electronically signed by Ariane Lakhani MD> Date Ariane Lakhani MD Cosigner Signature (If Indicated): Date CC: Sara Swartz NP 18-Nov-2017 Chest PA and Lateral Result: Comments: See Note; NOTES: [facility] Imaging Services [address] [place] [address] Chest PA and Lateral MR#: [id number] Acct: [id number] Name: GABBI ROLLE Rep #: [id number] : 1945 F 72 From: Aaron Kenyon MD PCP: Sara Swartz NP Status: REG ER Study: Chest PA and Lateral Date of Exam: 11/18/17 Exam# [id number] Ordering Dr: Ariane Lakhani MD STUDY: X-RAY [...] , Service support , CC: Sara Swartz LOGISTICS LEAD; Ariane Lakhani MD Scanning Tech: Signed 04-Nov-2017 Oncology Visit Report Result: Comments: See Note; NOTES: [facility] [address] [place] [address]. [place] [address] OFFICE VISIT Date of Service: 11/04/17 1252 MR#: [id number] Acct: [id number] Name: GABBI ROLLE Rep #: [id number] : 1945 From: Halley Khan MD Age/Sex: [...] with Dr. 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 This note was generated with TandemLaunch dictation software. It may contain incorrect words, [...] Visit Report Result: Comments: See Note; NOTES: [facility] [address] [place] [address]. [address] [place] [address] OFFICE VISIT Date of Service: 09/18/17 MR#: [id number] Acct: [id number] Name: GABBI ROLLE Rep #: [id number] : 1945 Provider: DANIELE Figueredo Age/Sex: 72/F Location: [facility] Status: Signed HPI 4 M FU: Details: GABBI ROLLE, is a 72 F who presents to the office today [facility]. Patient has a history of [...] radial Intake Visit Reasons: 4 M FU City Administrator Required: No Accompanied by: None Is patient [...] PFSH Medical History Atherosclerotic heart disease of pauma c oro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 pectoris (Chronic) [...] affect Assessment AND Plan 1. Atherosclerosis of pauma coronary artery of pauma heart without angina pectoris I25.10 [facility]: 07/30/2006; 04/10/17 ROSALIND King Patient's [...] prior to saving. 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 transplanted heart: pauma heart Chronic atrial fibrillation I48.2 Iron deficiency anemia, unspecifie d iron deficiency anemia type D50.9 Anemia type: iron deficiency Iron deficiency anemia type: unspecified iron deficiency Other secondary pulmonary hypertension I27.29 Nonrheumatic aortic (valve) stenos is I35.0 Essential hypertension I10 Hypertension type: essential hypertension Mixed hyperlipidemia E78.2 Hyperlipidemia type: mixed hyperlipidemia Coding Level of Care Code Off vis,est,level 3 Diagno ses Atherosclerosis of pauma coronary artery of pauma heart without angina pectoris I25.10 [place] vs. 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 Nonrheumatic aortic (valve) jamie nosis I35.0 Essential hypertension I10 Hypertension type: essential hypertension Mixed hyperlipidemia E78.2 Hyperlipidemia type: mixed hyperlipidemia 09/18/17 1515 <Electronically signed by Mendez Figueredo LOGISTICS LEAD-C> Date Lazaro GARCIAC 09/20/17 1531<Electronically signed by Niraj Raymundo MD> Cosigner Signature: Date ____ (if applicable) Niraj Raymundo MD CC: Sara Swartz NP 06-Aug-2017 Chest PA and Lateral Result: Comments: See Note; NOTES: [facility] Imaging Services [address] [place] [address] Chest PA and Lateral MR#: [id number] Acct: [id number] Name: GABBI ROLLE Rep #: [id number] : 1945 F 72 From: Ariane Crook MD PCP: Sara Swartz NP Status: REG CLI Study: Chest PA and Lateral Date of Exam: 08/06/17 Exam# [id number] Ordering Dr: Kaykay Layne LOGISTICS LEAD-Cassie STUDY: X-RAY C HEST REASON FOR EXAM: [...] Crook MD at 17:23 EST Tel Direct: [phone], Service support 08-26 [phone], CC: Sara Swartz NP; LOGISTICS LEAD-C Kaykay Layne Scanning Tech: Signed 30-Jul-2017 Breast Limited Unilateral Result: Comments: See Note; NOTES: [facility] Imaging Services [address] [facility] [place] [address] Breast Limited Unilateral MR#: [id number] Acct: [id number] Name: GABBI ROLLE Rep #: [id number] : 1945 F 72 From: Irvin Cho MD PCP: Sara Swartz NP Status: REG CLI Study: Breast Limited Unilateral Date of Exam: 07/30/17 Exam# [id number] Ordering Dr: Sara Swartz STUDY: UL TRASOUND [...] Irvin Cho MD at 12:42 EST Tel [phone], Servic e support , CC: Sara Swartz NP Scanning Tech: Signed 23-Jul-2017 SCREENING MAMM (CAD), BILAT Result: Comments: See Note; NOTES: [facility] Imaging Services [address] [facility] [place] [address] SCREENING MAMM (CAD), BILAT MR#: [id number] Acct: [id number] Name: GABBI ROLLE Rep #: [id number] : 1945 F 72 From: Irvin Cho MD PCP: Sara Swartz NP Status: REG CLI Study: SCREENING MAMM (CAD), BILAT Date of Exam: 07/23/17 Exam# [id number] Ordering Dr: Sara Swartz MAMMO GRAPHY - [...] delay biopsy of a clinically suspicious abnormality. [id number] El ectronically Signed: Irvin Cho MD at 9:57 EST Tel [phone], Service support , CC: Sara Swartz NP Scanning Tech: Signed 10-May-2017 History and Physical Exam Result: Comments: See Note; NOTES: [facility] Medical Records Department [address] [facility] [address] History and Physical 05/10/17 1126 MR#: [id number] Acct: [id number] Name: Alvina ROLLE Rep #: [id number] : 1945 71 From: Halley Khan MD [...] iron but tends to recur. Power of Cigar Head Holer: Yes Living Will: Yes Health History: Past [...] Hemoptysis Gastrointestinal:: Reports: Hematochezia, - - Periodic OR bleed, red no melena No reflux symptoms. [...] GI bleed discussed Primary Care Provider: Sara Swarzt Referring Provider: 05/10/17 1143 <Electronically signed by Halley Khan MD> Date Halley Khan MD Cosigner Signature (if applicable): Date CC: Sara Swartz; Sara Swartz; Zeus Vera DO; Halley Khan MD; Heron Hobbs Signed 26-Mar-2017 Chest PA and Lateral Result: Comments: See Note; NOTES: [facility] Imaging Services [address] [facility] [place] [place] [address] Chest PA and Lateral MR#: [id number] Acct: [id number] Name: GABBI ROLLE Rep #: [id number] : 1945 F 71 From: Ariane Crook MD PCP: Sara Swartz Status: REG CLI Study: Chest PA and Lateral Date of Exam: 03/26/17 Exam# [id number] Ordering Dr: Niraj Raymundo MD STUDY: X-RAY [...] Ariane Crook MD at 20:49 EDT Tel [phone], Service support , CC: Sara Swartz; Niraj Raymundo MD Scanning Tech: Signed 05-Mar-2017 Venous Duplex Lower Extremity Result: Comments: See Note; NOTES: [facility] Cardiovascular Services [address] [place] [address] Venous Duplex US, Unilateral 03/05/17 1427 MR#: [id number] Acct: [id number] Name: GABBI MCGOVERN Rep #: [id number] : 1945 71 From: Francisco Ji MD Attending Dr: Heron Hobbs Status: REG CLI Ordering Dr: Heron Hobbs MD Date: 03/05/17 Location: [facility] Sex: F C Admitted: Reason For Study: [...] Date Dictated: 03/05/17 1427 Date Transcribed: 03/05/171601 Scanning Tech: Signed 04-Feb-2017 Kidney and Bladder Result: Comments: See Note; NOTES: [facility] Imaging Services [address] [place] [address] Verdana 4d Kidney and Bladder MR#: [id number] Acct: [id number] Name: GABBI ROLLE Rep # : [id number] : 1945 F 71 From: Irvin Galarza DO PCP: Sara Swartz Status: REG CLI Study: Kidney and Bladder Date of Exam: 02/04/17 Exam# [id number] Ordering Dr: Natalia Mccurdy DO STUDY: RENAL ULTRAS OUND - COMPLETE REASON FOR EXAM: Female, 71 years old. Chronic kidney disease stage III TECHNIQUE: Ultrasound evaluation of the kidneys was performed with real-time and static ruggiero-scale imaging. SnapNames PARISON: None. FINDINGS: RIGHT KIDNEY: Normal location [...] Irvin Galarza DO at 22:55 EDT Tel [phone], Service support , CC: Sara Swartz; Natalia Mccurdy DO Scanning Tech: Signed 09-Dec-2016 Emergency Department Summary Result: Comments: See Note; NOTES: [facility] Medical Records Department [address] [place] [address] Emergency Department Summary MR#: [id number] Acct: [id number] Name: FINA ROLLE Rep #: [id number] : 1945 71 From: Maral Palacios MD [...] Dehydration. Maral Palacios MD T: NTS JOB: [id number] 12/09/16 0728 <Electronically signed by Maral Palacios MD> Date Maral Palacios MD Cosigner Signature (If Indicated ): Date CC: Sara Nixonyany Date Dictated: 12/09/1604 Date Transcribed: 12/09/16703 Scanning Tech: Signed 09-Dec-2016 Chest PA and Lateral Result: Comments: See Note; NOTES: [facility] Imaging Services [address] [place] [address] Verdana 4d Chest PA and Lateral MR#: [id number] Acct: [id number] Name: GABBI ROLLE Rep #: [id number] : 1945 F 71 From: Aaron Kenyon MD PCP: Sara Swartz Status: REG ER Study: Chest PA and Lateral Date of Exam: 12/09/16 Exam# [id number] Ordering Dr: Maral Palacios MD STUDY: X-RAY [...] Tel , Service support , Fa x [phone] CC: Sara Swartz; Maral Palacios MD Scanning Tech: Signed 10-Sep-2016 Stress Test Echo w/o Contrast Result: Comments: See Note; NOTES: [facility] Cardiovascular Services [address] [place] [address] Verdana 4d Stress Test Echo w/o Contrast MR#: [id number] Acct: [id number] Name: GABBI WAY Rep #: [id number] : 1945 71 From: Niraj Raymundo MD [...] Dictated: 09/10/16 1258 Date Transcribed: 09/10/16 1523 Scanning Tech: Signed 27-Jul-2016 Bilat Scrn Digital AND CAD Result: Comments: See Note; NOTES: [facility] Imaging Services [address] [place] [address] Verdana 4d Bilat Scrn Digital AND CAD MR#: [id number] Acct: [id number] Name: GABBI ROLLE Rep #: [id number] : 1945 F 71 From: Irvin Cho MD PCP: Jacinto Sheehan Status: REG CLI Study: Bilat Scrn Digital AND CAD Date of Exam: 07/27/16 Exam# [id number] Ordering Dr: Jacinto Sheehan MAMMOGRAPHY - BILATERAL [...] delay biopsy of a clinically suspicious abnormality. [id number] Electronically Signed: Irvin Cho MD at 10:02 EST Tel [phone], Service support [phone], CC: Jacinto Sheehan Scanning Tech: Signed 11-Apr-2016 Dexa Bone Density/Append Skel Result: Comments: See Note; NOTES: [facility] Imaging Services [address] [place] [address] Ajaydamichael 4d Dexa Bone Density/Append Skel MR#: [id number] Acct: [id number] Name: SHYAM ROLLE Rep #: [id number] : 1945 F 70 From: Irvin Cho MD PCP: Jacinto Sheehan Status: REG CLI Study: Dexa Bone Density/Append Skel Date of Exam: 04/11/16 Exam# [id number] Ordering Dr: Jacinto Sheehan STUDY: DUAL ENERGY [...] Irvin Cho MD at 11:29 EDT Tel [phone], Ser vice support [phone], CC: Jacinto Sheehan Scanning Tech: Signed 26-Dec-2015 Liver Result: Comments: See Note; NOTES: [facility] Imaging Services [address] [place] [address] Verdana 4d Liver MR#: [id number] Acct: [id number] Name: GABBI ROLLE Rep # : [id number] : 1945 F 70 From: Irvin Cho MD PCP: Brittany Abraham DO Status: REG CLI Study: Liver Date of Exam: 12/26/15 Exam# [id number] Ordering Dr: Brittany Abraham DO STUDY: ABDOMINAL [...] Irvin Cho MD at 12:58 EDT Tel [phone], Service support [phone], CC: Brittany Abraham DO Scanning Tech: Signed 25-Jul-2015 Bilat Scrn Digital AND CAD Result: Comments: See Note; NOTES: [facility] Imaging Services [address] [place] [address] Verdana 4d Bilat Scrn Digital AND CAD MR#: [id number] Acct: [id number] Name: GABBI ROLLE Rep #: [id number] : 1945 F 70 From: Irvin Cho MD PCP: Brittany Abraham DO Status: REG CLI Study: Bilat Scrn Digital AND CAD Date of Exam: 07/25/15 Exam# [id number] Therese trujillo Dr: Brittany Abraham DO MAMMOGRAPHY [...] delay biopsy of a clinically suspicious abnormality. [id number] Electronically Signed: Irvin Cho MD at 8:59 EST Tel [phone], Service support [phone], CC: Brittany Abraham DO Scanning Tech: Signed 22-Jun-2015 Carotid Duplex Ultrasound Result: Comments: See Note; NOTES: [facility] Cardiovascular Services [address] [place] [address] Carotid Duplex Ultrasound 06/17/15 0851 MR#: [id number] Acct: [id number] Name: GABBI ROLLE Rep #: [id number] : 1945 70 From: Sharath Mortensen MD [...] the left vertebral artery. Procedure Carotid Duplex 97[address]. The exam was diagnostic. The study was [...] Date Dictated: 06/17/15 0851 Date Transcribed: 06/22/1540 Scanning Tech: Signed 24-Mar-2015 Pulmonary Function Report Comp Result: Comments: See Note; NOTES: [facility] Pulmonary Services/Neurology [address] [place] [address] Pulmonary Function Test (Comp) MR#: [id number] Acct: [id number] Name: GABBI WAY Rep #: [id number] : 1945 69 From: Pako Andre MD [...] edema. PAKO ANDRE MD T: NTS JOB: [id number] SPIROMETRY Ref ULN/LLN Pre Pre Post Post [...] Date Dictated: 1554 Date Transcribed: 03/22/15 155 Scanning Tech: Signed 11-Mar-2015 Echocardiogram Complete Result: Comments: See Note; NOTES: [facility] Cardiovascular Services [address] [place] [address] Echo Complete 03/11/15 1108 MR#: [id number] Acct: [id number] Name: Alvina ROLLE Rep #: [id number] : 1945 69 From: Niraj Raymundo MD Attending Dr: Niraj Raymundo MD Status: REG CLI Ordering Dr: Niraj Raymundo MD Date: 03/11/15 Location: [facility] Sex: F C Admitted: Rita fernandez [...] Dictated: 03/11/15 1108 Date Transcribed: 03/11/15 1247 Scanning Tech: Signed 23-Jul-2014 Suha Terry Digital & CAD Result: Comments: See Note; NOTES: [facility] Imaging Services [address] [place] [address] Breast Imaging Report MR#: [id number] Acct: [id number] Name: GABBI ROLLE Rep #: [id number] : 1945 F 69 From: Irvin Cho MD PCP: Brittany Abraham DO Status: REG CLI Exam# [id number] Ordering Dr: Brittany Abraham DO MAMMOGRAPHY - [...] small lymph nodes. CC: Brittany Abraham DO Scanning Tech: Signed 29-Jun-2014 Knee 4 or More Views Result: Comments: See Note; NOTES: [facility] Imaging Services [address] [place] [address] Radiology Report MR#: [id number] Acct: [id number] Name: GABBI ROLLE Rep #: [id number] : 1945 F 69 From: Po Segovia DO PCP: Brittany Abraham DO Status: REG CLI Study: Knee 4 or More Views Date of Exam: 06/29/14 Exam# [id number] Ordering Dr: Brittany Abraham DO STUDY: X-RAY [...] at 6:27 EST Tel , Service support [phone], CC: Brittany Abraham DO Scanning Tech: Signed 29-Jun-2014 Knee 4 or More Views Result: Comments: See Note; NOTES: [facility] Imaging Services [address] [place] [address] Radiology Report MR#: [id number] Acct: [id number] Name: GABBI ROLLE Rep #: [id number] : 1945 F 69 From: Po Segovia DO PCP: Brittany Abraham DO Status: REG CLI Study: Knee 4 or More Views Date of Exam: 06/29/14 Exam# [id number] Ordering Dr: Brittany Abraham DO STUDY: X-RAY [...] 6:35 EST Tel , Service [place] [phone], CC: Brittany Abraham DO Scanning Tech: Signed 08-Feb-2014 OT Discharge Summary Result: Comments: See Note; NOTES: [facility] Occupational [facility] [address] [place] [address]. [address] [place] [address] Fax REHABILITATION SERVIC ES DISCHARGE SUMMARY MR#: [id number] Acct: [id number] Name: GABBI ROLLE Rep #: [id number] : 1945 68 From: Flavia Metz Referring [...] receive compression g arments through [facility]. The order was faxed over to them for the compression garments. However, unaware if the patient received those garments. At this time, again the patient was to return fo r followup visits to ensure proper fitting of compression hose. At this time, she has not done so and is discharged. Flavia Metz, OTR/L T: NTS JOB: [id number] <Electronically signed by Flavia Metz > 02/08/14 1513 CC: Signed 22-Dec-2013 Initial Evaluation - OT Result: Comments: See Note; NOTES: [facility] Occupational Therapy [address] [place] [address] [facility] [id number] Acct: [id number] Name: GABBI ROLLE Rep #: [id number] : 1945 68 From: Flavia Metz Referring DrYuli: Brittany Abraham DO Status: DIS RCR Insurance: M [employer] A B Eval Date: [place] DATE OF SERVICE: 12/15/2013 PHYSICIAN: Brittany Abraham [...] understanding. Flavia Metz OTR/L T: NTS JOB: [id number] <Electr onically signed by Flavia Metz > 12/22/13 1311 CC: Signed For Medicare only, by signing this I certify the plan of care. Physicians Signature Date 14-Dec-2013 Liver Result: Comments: See Note; NOTES: [facility] Imaging Services [address] [facility] [place] [address] Ultrasound Report MR#: [id number] Acct: [id number] Name: GABBI ROLLE Rep #: [id number] : 1945 F 68 From: Irvin Cho MD PCP: Brittany Abraham DO Status: REG CLI Study: Liver Date of Exam: 12/14/13 Exam# [id number] Ordering Dr: Brittany Abraham DO STUDY: ABDOMINAL [...] Irvin Cho MD at 10:02 EDT Tel [phone], Service support [phone], CC: Brittany Abraham DO Scanning Tech: Signed 18-Nov-2013 Chest PA and Lateral Result: Comments: See Note; NOTES: [facility] Imaging Services [address] [place] [address] Radiology Report MR#: [id number] Acct: [id number] Name: GABBI ROLLE Rep #: [id number] : 1945 F 68 From: Irvin Cho MD PCP: Brittany Abraham DO Status: REG CLI Study: Chest PA and Lateral Date of Exam: 11/18/13 Exam# [id number] Ordering Dr: Sara Swartz STUDY: X-RAY CHEST [...] M.D. at 15:41 EDT , Service support [phone], CC: Sara Swartz; Brittany Abraham DO Scanning Tech: Signed 03-Nov-2013 Chest PA and Lateral Result: Comments: See Note; NOTES: [facility] Imaging Services [address] [place] [address] Radiology Report MR#: [id number] Acct: [id number] Name: GABBI ROLLE Rep #: [id number] : 1945 F 68 From: Irvin Cho MD PCP: Brittany Abraham DO Status: REG CLI Study: Chest PA and Lateral Date of Exam: 11/03/13 Exam# [id number] Ordering Dr: Brittany Abraham DO STUDY: X- [...] M.D. at 11:18 EDT , Service support [phone], Fax CC: Brittany Abraham DO Scanning Tech: Signed 30-Jul-2013 Suha Terry Digital & CAD Result: Comments: See Note; NOTES: [facility] Imaging Services [address] [place] [address] Breast Imaging Report MR#: [id number] Acct: [id number] Name: GABBI ROLLE Rep #: [id number] : 1945 F 68 From: Irvin Cho MD PCP: Brittany Abraham DO Status: REG CLI Exam# [id number] Ordering Dr: Brittany Abraham DO MAMMOGRAPHY - [...] at 8:11 EST Tel , Service support [phone], CC: Brittany Abraham DO Scanning Tech: Signed 30-Jul-2013 Dexa Bone Density Study (HP) Result: Comments: See Note; NOTES: [facility] Imaging Services [address] [place] [address] Bone Density Report MR#: [id number] Acct: [id number] Name: GABBI ROLLE Rep #: : 1945 F 68 From: Irvin Cho MD PCP: Brittany Abraham DO Status: REG CLI Study: Dexa Bone Density Study (HP) Date of Exam: 07/30/13 Exam# [id number] Ordering Dr: Brittany Abraham DO STUDY: DUAL [...] M.D. at 9:58 EST , Service support [phone], CC: Brittany Abraham DO Scanning Tech: Signed Immunization Name Dates Details Influenza (3 [...] Height 0 in Head Circumference 0.00 cm 91-Ues-713992:15 Temperature 97.6 f Comments: Method: Oral Pulse [...] Description Value Details :34 HgA1C , Office (39136) HgA1C , Office 5.4 % (Normal) Range: 4.6 - 7.1 :34 Blood Glucose , Office (75195) Blood Glucose , Office 145 (Normal) 67-Aeo-855741:14 Basic Metabolic Profile (BMP) Comments: [facility] [address] [place], [address] GAP 8 (Normal) Range: 5-15 CO2 28.0 [...] A.D.A. criteria.Please note revised GLUCOSE reference range fsugwyjoc10/02/2018. 56-Ogz-028833:14 PTHIN 127.7 pg/mL (Abnormal) Comments: [facility] [address] [place], [id number] Range: 18.4-80.1 11-Nmy-553980:47 Basic Metabolic Profile (BMP) Comments: [facility] [address]lawsw[address] [place], [address] GAP 7 (Normal) Range: 5-15 CO2 25.0 [...] A.D.A. criteria.Please note revised GLUCOSE reference range xojlntyzo68/02/2018. 17-Teo-577308:47 Renal Profile Comments: [facility] [address] [place], [address] CO2 25.0 mmol/L (Normal) Range: 21.0-32.0 CL [...] A.D.A. criteria.Please note revised GLUCOSE reference range njmakhacy82/02/2018. 27-Twg-164649:46 CBC W/Diff, Automated Comments: Reason for Laboratory Test .[facility] [address] [place], [address] Absolute Lymph 0.69 {X10_3/ul} (Abnormal) Range: 0.83-4.51 [...] 4.2-5.4 WBC 4.6 K/mm3 (Normal) Range: 4.4-11.0 40-Cts-178481:46 Ferritin Comments: Reason for Laboratory Test .[facility] [address] [place], [place], [address] FERRITIN 55 ng/mL (Normal) Range: 8-252 05-Kug-729521:46 Iron+Iron Binding Capacity Comments: Reason for Laboratory Test .[facility] [address] [place], [address] IRON SATURATION 13.4 % (Abnormal) Range: 15.0-55.0 IRON 47 ug/dL (Abnormal) Range: 50-170 TIBC 350 ug/dL (Normal) Range: 250-450 24-Gez-420667:45 Partial Thromboplast Time Comments: [place] [address] [place], [address] PTT 44.5 s (Abnormal) Range: 24.1-36.2 89-Lsr-557303:45 Prothrombin Time w/INR Comments: [place] [address] [place], [address] INR 1.2 (Normal) PROTIME 15.0 s (Abnormal) Range: 11.7-14.9 6-Gxh-739501:16 Renal Profile Comments: [place] [address] [place], [address] CO2 24.0 mmol/L (Normal) Range: [...] A.D.A. criteria.Please note revised GLUCOSE reference range czwzxfyxx12/02/2018. 1-Hjh-035665:15 CBC W/Diff, Automated Comments: Reason for Laboratory Test .[facility] [address] [place], [place], [address] Absolute Lymph 0.91 {X10_3/ul} (Normal) Range: 0.83-4.51 [...] 4.2-5.4 WBC 4.2 K/mm3 (Abnormal) Range: 4.4-11.0 8-Okb-415146:15 Ferritin Comments: Reason for Laboratory Test .[facility] [address] [place], [place], [address] FERRITIN 44 ng/mL (Normal) Range: 8-252 8-Gwm-497764:15 Iron+Iron Binding Capacity Comments: Reason for Laboratory Test .[facility] [address]nx[address] [place], [place], [phone] IRON SATURATION 11.8 % (Abnormal) Range: 15.0-55.0 IRON 42 ug/dL (Abnormal) Range: 50-170 TIBC 355 ug/dL (Normal) Range: 250-450 04-Rdh-233841:22 CBC W/Diff, Automated Comments: Reason for Laboratory Test DRAW BLOODBANK TUBE FOR TYPE AND [facility] [address] [place], [place], [address] Absolute Lymph 0.76 {X10_3/ul} (Abnormal) Range: 0.83-4.51 [...] 4.2-5.4 WBC 5.7 K/mm3 (Normal) Range: 4.4-11.0 5-Thh-040340:39 Renal Profile Comments: [facility] [address] [place], [place], [address] CO2 24.0 mmol/L (Normal) Range: 21.0-32.0 CL [...] criteria.Please note revised GLUCOSE reference range /02/2018. 4-Oyn-523569:04 CBC W/Diff, Automated Comments: Reason for Laboratory Test .[facility] [address] [place], [place], [address] Absolute Lymph 0.85 {X10_3/ul} (Normal) Range: 0.83-4.51 [...] 4.2-5.4 WBC 5.4 K/mm3 (Normal) Range: 4.4-11.0 5-Xzu-885104:04 Ferritin Comments: Reason for Laboratory Test .[facility] [address] [place], [place], [address] FERRITIN 135 ng/mL (Normal) Range: 8-252 2-Lez-095524:04 Iron+Iron Binding Capacity Comments: Reason for Laboratory Test .[facility] [address] [place], [place], [address] IRON SATURATION 31.9 % (Normal) Range: 15.0-55.0 IRON 117 ug/dL (Normal) Range: 50-170 TIBC 367 ug/dL (Normal) Range: 250-450 20-Nem-978381:26 CBC W/Diff, Automated Comments: [facility] [address] [place], [place], [address] Absolute Lymph 0.86 {X10_3/ul} (Normal) Range: 0.83-4.51 [...] 4.2-5.4 WBC 5.8 K/mm3 (Normal) Range: 4.4-11.0 51-Znc-704645:26 Comprehensive Metabolic Profil Comments: [facility] [address] [place], [place], [address] GAP 7 (Normal) Range: 5-15 CO2 27.0 [...] A.D.A. criteria.Please note revised GLUCOSE reference range aghkehesc86/02/2018. 14-Twi-486290:36 Ferritin Comments: Reason for Laboratory Test .[facility] [address] [place], [place], [address] FERRITIN 54 ng/mL (Normal) Range: 8-252 17-Ftg-974106:36 Iron+Iron Binding Capacity Comments: Reason for Laboratory Test .[facility] Xixt[address]nam[address] [place], [place], [address] IRON SATURATION 12.7 % (Abnormal) Range: 15.0-55.0 IRON 42 ug/dL (Abnormal) Range: 50-170 TIBC 331 ug/dL (Normal) Range: 250-450 23-Sau-228013:21 CBC-Complete Blood Cnt No Diff Comments: [facility] [address] [place], [place], [address] MPV 10.8 fL (Normal) Range: 6.2-12.0 PLT [...] 4.2-5.4 WBC 6.2 K/mm3 (Normal) Range: 4.4-11.0 1-Gyo-170729:15 CBC W/Diff, Automated Comments: [address] [place], [place], [address] Absolute Lymph 0.79 {X10_3/ul} (Abnormal) Range: 0.83-4.51 [...] 4.2-5.4 WBC 7.0 K/mm3 (Normal) Range: 4.4-11.0 2-Mrk-545585:15 Comprehensive Metabolic Profil Comments: [facility] [address] [place], [place], [address] GAP 8 (Normal) Range: 5-15 CO2 21.0 [...] A.D.A. criteria.Please note revised GLUCOSE reference range tekdfpvue41/02/2018. 3-Gfy-230627:15 Lactic Acid Comments: Yes/No query for Sepsis Lactate Rule [facility] [address] [place], [place], [address] LACTIC ACID 2.1 mmol/L (Abnormal) Range: 0.4-2.0 Comments: Critical Result(s) Called at: 10:59:09 02/23/2018 by: Juve House RN 8-Ikp-914813:15 Partial Thromboplast Time Comments: [address] [place], [address] PTT 36.8 s (Abnormal) Range: 24.1-36.2 2-Bkm-304201:15 Prothrombin Time w/INR Comments: [address] [place], [place], [address] INR 1.2 (Normal) PROTIME 15.2 s (Abnormal) Range: 11.7-14.9 4-Adh-335679:15 Troponin-I Comments: [address] [place], [place], [address] TROPONIN-I < 0.015 ng/mL (Normal) Comments: TROPONIN-I EXPECTED VALUES <0.045 Negative 0.045 - 0.590 Consistent with Cardiac Damage > OR = 0.600 Critical Value Not every elevated troponin is indicative of FL. T hesevalues should be used with clinical judgement in examiningthe patient's clinical picture for diagnosis. To establisha diagnosis of FL versus myocardial injury, there must be ademonstrated rise and/ or fall in the troponin values, inaddition to ischemic symptoms, EKG changes, new regionalwall motion abnormality, and/or angiographical evidence. PLEASE NOTE: REFERENCE RANGES EDITED 12/30/1717-Feb-20182-Vyb-309224:10 CBC W/Diff, Automated Comments: CMP, CBCD, PT FOR DR BOOKER ARE FOR [facility] [address]jf[address] [place], [place], [address] Absolute Lymph 0.84 {X10_3/ul} (Normal) Range: 0.83-4.51 [...] 4.2-5.4 WBC 6.6 K/mm3 (Normal) Range: 4.4-11.0 8-Yyq-137221:10 Comprehensive Metabolic Profil Comments: CMP, CBCD, PT FOR DR BOOKER ARE FOR DR Sanchesluis [facility] [address] [place], [address] GAP 8 (Normal) Range: 5-15 CO2 25.0 [...] A.D.A. criteria.Please note revised GLUCOSE reference range ovqrezdex04/02/2018. 1-Kxb-740189:10 Ferritin Comments: CMP, CBCD, PT FOR DR BOOKER [facility] [address] [place], [address] FERRITIN 60 ng/mL (Normal) Range: 8-252 0-Ama-854793:10 Iron+Iron Binding Capacity Comments: CMP, CBCD, PT FOR DR BOOKER ARE FOR [facility]ALSILVIO[facility] [address] [place], [address] IRON SATURATION 13.0 % (Abnormal) Range: 15.0-55.0 IRON 44 ug/dL (Abnormal) Range: 50-170 TIBC 339 ug/dL (Normal) Range: 250-450 3-Puv-737040:10 Prothrombin Time w/INR Comments: CMP, CBCD, PT FOR DR BOOKER ARE FOR [facility]VIO[facility] [address] [place], [address] INR 1.2 (Normal) PROTIME 15.3 s (Abnormal) Range: 11.7-14.9 87-Nze-805758:25 Basic Metabolic Profile (BMP) Comments: [facility] [address], [address] GAP 9 (Normal) Range: 5-15 CO2 [...] criteria.Please note revised GLUCOSE reference range /02/2018. 22-Zue-023276:25 CBC W/Diff, Automated Comments: [facility] [address] [place], [address] PATH REV Reviewed (Normal) Comments: Severe Macrocytic [...] CRITICAL VALUE VERIFIED. CALLED TO LELE SIN02/04/18 1145 Billie Hays.RESULTS READ BACK BY SAME . RBC 1.86 {M/mm3} (Abnormal) Range: 4.2-5.4 WBC 7.5 K/mm3 (Normal) Range: 4.4-11.0 34-Ksq-012437:25 Prothrombin Time w/INR Comments: [facility] [address] [place], [place], [address] INR 3.7 (Abnormal) Comments: CRITICAL VALUE VERIFIED. CALLED TO LELE DILL02/04/18 115 Billie Hays.RESULTS READ BACK BY SAME . PROTIME 37.0 s (Abnormal) Range: 11.7-14.9 67-Tpe-945651:26 Basic Metabolic Profile (BMP) Comments: Send Results To: Gerry Swartz for Laboratory Test CKD, hypokalemiaWOhioHealth Southeastern Medical Center [address]ro[address] [place], [place], [address] GAP 8 (Normal) Range: 5-15 CO2 28.0 [...] A.D.A. criteria.Please note revised GLUCOSE reference range agdkrdzfl21/02/2018. 41-Eax-904445:25 CBC W/Diff, Automated Comments: Reason for Laboratory Test .[facility] [address] [place], [place], [address] Absolute Lymph 1.02 {X10_3/ul} (Normal) Range: 0.83-4.51 [...] :25 Ferritin Comments: Reason for Laboratory Test .[facility] [address] [place], [place], [address] FERRITIN 109 ng/mL (Normal) Range: 8-252 43-Geq-860184:25 Iron+Iron Binding Capacity Comments: Reason for Laboratory Test .[facility] [address] [place], [address] IRON SATURATION 26.7 % (Normal) Range: 15.0-55.0 IRON 92 ug/dL (Normal) Range: 50-170 TIBC 345 ug/dL (Normal) Range: 250-450 9-Jzw-055173:19 HgA1C , Office (18253) HgA1C , Office 5.1 % (Normal) Range: 4.6 - 7.1 2-Eci-464712:18 Blood Glucose , Office (70779) Blood Glucose , Office 124 (Normal) 21-Jan-20180:00 Fluid/Washing See Note (Normal) Comments: [facility] [address] [place], [place], [address] Comments: Patient: GABBI ROLLE : 1945 (72/F) Acct Num: [id number] Phys: Leslie BALDWIN,Carlos Unit Num: [id number] Loc: US Specimen: [id number] Received: 01/24/18846 Spec Type: Flu id TISSUES TISSUES: THORACIC FLUID CYTOLOGY GROSS Received is 695 ml of laquita cloudy fluid labeled with the patient's name and DOBand designated per the requisition as t horacentesis. Submitted for cytology preparation including cell block. / 01/23/18 TC:5 CPT: 48114, 42510 CYTOLOGY STUDY Slides are reviewed. The specimen [...] Comments: RESULT(S) PREVIOUSLY REPORTED ON MANUAL REQUISITION DURINGDOWNTIME.[facility] [address] [place], [place], [address] PTT 42.2 s (Abnormal) Range: 24.1-36.2 20-Jan-20189:30 Prothrombin Time w/INR Comments: RESULT(S) PREVIOUSLY REPORTED ON MANUAL REQUISITION DURINGDOWNTIME.[facility] [address] [place], [place], [address] INR 1.3 (Normal) PROTIME 16.2 s (Abnormal) Range: 11.7-14.9 87-Xiw-806655:55 Basic Metabolic Profile (BMP) Comments: [facility] [address] [place], [address] GAP 9 (Normal) Range: 5-15 [...] A.D.A. criteria.Please note revised GLUCOSE reference range cwsxyzkmd29/02/2018. 14-Kjc-351265:55 BNP,B-Type NATRIURETIC PEPTIDE Comments: [facility] [address] [place], [place], [address] B-TYPE MARY JO PEP 208.1 pg/mL (Abnormal) Range: 0-100 13-Tfr-920234:55 CBC W/Diff, Automated Comments: [facility] [address] [place], [address] Absolute Lymph 0.56 {X10_3/ul} (Abnormal) [...] Range: 4.4-11.0 :44 Protime w/INR Fingerstick Comments: [facility] LaboratoryPoint of Azcg[address] [place] [address] INR ISTAT 1.20 (Normal) Comments: Critical Value > 3.5 PROTIME ISTAT 13.7 {SEC} (Normal) Range: 11.9-14.4 Comments: Reference Range 11.9 - 14.4 :43 Bedside Glucose Comments: [facility] LaboratoryPoint of [address] [place] [address] BEDSIDE GLU 147 mg/dL (Abnormal) Range: 70-110 Comments: MANAGEMENT OF PATIENT CARE PER NURSING PROTOCOL 51-Etb-901479:01 CBC W/Diff, Automated Comments: Reason for Laboratory Test .[facility] [address] [place], [address] Absolute Lymph 0.80 {X10_3/ul} (Abnormal) Range: [...] 4.2-5.4 WBC 7.1 K/mm3 (Normal) Range: 4.4-11.0 28-Lpi-468707:01 Comprehensive Metabolic Profil Comments: Reason for Laboratory Test .[facility] [address] [place], [place], [address] GAP 6 (Normal) Range: 5-15 CO2 25.0 [...] criteria.Please note revised GLUCOSE reference range /02/2018. 99-Dxe-393448:01 Erythropoietin Comments: Reason for Laboratory Test .[facility] (refer to report for specific site)refer to report for address and phone number [facility] [phone] m[iU]/mL (Abnormal) Range: 2.6-18.5 Comments: [employer] DxI 800 Immunoassay SystemPerformed at: - Lab[address] [id number] Director: Heron Almonte PhD, Phone: [phone] 54-Sbc-561862:01 Ferritin Comments: Reason for Laboratory Test .[facility] [address] [place], [place], [address] FERRITIN 69 ng/mL (Normal) Range: 8-252 30-Tmi-324084:01 Iron+Iron Binding Capacity Comments: Reason for Laboratory Test .[facility] [address] [place], [place], [address] IRON SATURATION 19.7 % (Normal) Range: 15.0-55.0 IRON 77 ug/dL (Normal) Range: 50-170 TIBC 391 ug/dL (Normal) Range: 250-450 53-Wwr-868255:06 Metabolic Panel, Comprehensive Comments: send to Dr. Mccurdy; PATIENT NOT FASTINGPERFORMED BY: [facility] Mwmwzt0382 [facility] [id number] (42425) ALT (SGPT) 18 [iU]/L (Normal) Range: 0-32 [...] 8-27 Glucose 114 mg/dL (Abnormal) Range: 65-99 52-Lex-609585:06 TSH (THYROID STIMULATING Comments: send results to Dr. Bowers; PATIENT NOT FASTINGPERFORMED BY: [facility] Tadojc6517 [facility] [id number] HORMONE) (50030) TSH 3.420 {uIU/mL} (Normal) Range: 0.450-4.500 55-Jdt-240051:09 CBC W/Diff, Automated Comments: Reason for Laboratory Test .[facility] [address] [place], [place], [address] SMEAR COMMENT (Normal) Comments: SLIDE SCANNED - [...] 4.2-5.4 WBC 6.9 K/mm3 (Normal) Range: 4.4-11.0 92-Noc-881999:09 Erythropoietin Comments: Reason for Laboratory Test .[facility] (refer to report for specific site)refer to report for address and phone number [facility] [phone] 51.6 m[iU]/mL (Abnormal) Range: 2.6-18.5 Comments: [employer] DxI 800 Immunoassay SystemPerformed at: [facility] [employer] [id number] Director: Heron Almonte PhD, Phone: [phone] 43-Gqi-437382:09 Ferritin Comments: Reason for Laboratory Test .[facility] [address] [place], [place], [address] FERRITIN 43 ng/mL (Normal) Range: 8-252 55-Nnx-406303:09 Iron+Iron Binding Capacity Comments: Reason for Laboratory Test .[facility] [address] [place], [place], [address] IRON SATURATION 10.4 % (Abnormal) Range: 15.0-55.0 IRON 56 ug/dL (Normal) Range: 50-170 Comments: Slight Hemolysis, Result may be falsely increased. TIBC 536 ug/dL (Abnormal) Range: 250-450 97-Wbu-703217:09 Retic Panel Comments: Reason for Laboratory Test .[facility] [address] [place], [place], [address] IPF 3.8 % (Normal) Range: 1.0-7.9 Comments: [...] 3.00-15.90 RETIC 5.76 % (Abnormal) Range: 0.5-1.5 25-Qxu-367583:55 Basic Metabolic Profile (BMP) Comments: 'TROP' Serial specimen #1, #2, #3, or #4: [facility] [address]zrps[address] [place], [place], [address] GAP 9 (Normal) Range: 5-15 CO2 23.0 [...] A.D.A. criteria.Please note revised GLUCOSE reference range zwmxmuerb09/02/2018. 85-Trh-763767:55 BNP,B-Type NATRIURETIC PEPTIDE Comments: [facility] [address] [place], [address] B-TYPE MARY JO PEP 217.5 pg/mL (Abnormal) Range: 0-100 79-Lkg-807418:55 CBC W/Diff, Automated Comments: [facility] [address] [place], [address] MACROCYTE 1+ (Normal) POLYCHROMASIA 1+ [...] Range: 4.4-11.0 :55 Prothrombin Time w/INR Comments: [facility] [address] [place], [place], [address] INR 2.4 (Normal) PROTIME 26.4 s (Abnormal) Range: 11.7-14.9 32-Zjo-475913:55 Troponin-I Comments: 'TROP' Serial specimen #1, #2, #3, or #4: [address] [place] [address] [address] [place], [place], [address] TROPONIN-I < 0.02 ng/mL (Normal) Comments: TROPONIN-I EXPECTED VALUES <0.05 NEGATIVE 0.06 - 0.59 AT RISK OF FL > OR = 0.60 SUGGEST FL 0-Xwu-703651:40 Basic Metabolic Profile (BMP) Comments: 'TROP' Serial specimen #1, #2, #3, or #4: [address] [place] [address] [place], [place], [address] GAP 7 (Normal) Range: 5-15 CO2 24.0 [...] A.D.A. criteria.Please note revised GLUCOSE reference range yxkrubtoy46/02/2018. 2-Hsd-317625:40 BNP,B-Type NATRIURETIC PEPTIDE Comments: [facility] [address] [place], [place], [address] B-TYPE MARY JO PEP 226.6 pg/mL (Abnormal) Range: 0-100 7-Mez-629253:40 CBC W/Diff, Automated Comments: [facility] [address] [place], [place], [address] SMEAR COMMENT SCANNED (Normal) Comments: 1+ ANISOCYTOSIS [...] Range: 4.4-11.0 :40 Prothrombin Time w/INR Comments: [address] [place], [address] INR 2.8 (Normal) PROTIME 29.7 s (Abnormal) Range: 11.7-14.9 0-Vel-926486:40 Troponin-I Comments: 'TROP' Serial specimen #1, #2, #3, or #4: [address] [place], [address] TROPONIN-I < 0.02 ng/mL (Normal) Comments: TROPONIN-I EXPECTED VALUES <0.05 NEGATIVE 0.06 - 0.59 AT RISK OF FL > OR = 0.60 SUGGEST FL 38-Oac-12360:53 CBC W/Diff, Automated Comments: CMP,LIPID,FERRITIN,IRON,TIBC FOR CIESAReason for Laboratory Test [facility]EMIAFisher[facility] [address]hwg[address] [place], [place], [address] HYPOCHROMASIA 2+ (Normal) POLYCHROMASIA RARE (Normal) ANISO [...] Comments: CMP,LIPID,FERRITIN,IRON,TIBC FOR Christianoason for Laboratory Test ANEMIAWOhioHealth [facility] [address]com[address] [place], [address] Profil GAP 8 (Normal) Range: 5-15 CO2 24.0 mmol/L (Normal) Range: 21.0-32.0 CL 107 mmol/L (Normal) Range: 98-107 K 4.3 mmol/L (Normal) Range: 3.5-5.1 NA 139 mmol/L (Normal) Range: 136-145 T BILI 0.50 mg/dL (Normal) Range: 0.20-1.00 ALT 17 U/L (Normal) Range: 13-56 Comments: Please note revised ALT reference range ojivqbofa81/28/2018. ALK P 76 U/L (Normal) Range: 45-117 [...] A.D.A. criteria.Please note revised GLUCOSE reference range xgkzdwsuu05/02/2018. 10-Qpd-37867:53 Ferritin Comments: CMP,LIPID,FERRITIN,IRON,TIBC FOR CIESAReason for Laboratory Test [facility] [address] [place], [address] FERRITIN 32 ng/mL (Normal) Range: 8-252 :53 Iron+Iron Binding Comments: CMP,LIPID,FERRITIN,IRON,TIBC FOR CIESAReason for Laboratory Test [facility] [address] [place], [address] Capacity IRON SATURATION 21.2 % (Normal) Range: 15.0-55.0 IRON 95 ug/dL (Normal) Range: 50-170 TIBC 449 ug/dL (Normal) Range: 250-450 :53 Lipid Profile Comments: CMP,LIPID,FERRITIN,IRON,TIBC FOR [facility] CREEKAReason for Laboratory Test [facility] [address] [place], [address] VLDL 24 mg/dL (Normal) Range: 5-40 [...] mg/dL High Risk :54 Culture, Urine Comments: [facility] [address] [place], [address] CUUR See Note (Normal) Comments: Urine CultureBelow infection level. ORGANISM 1: Mixed Gram Positive OrganismsColony Count 1000-10,000 2-Qkr-408093:54 Urinalysis, Complete Comments: How was Urine Obtained? CLEAN [facility] [address] [place], [address] MUCUS, URINE 0 SEEN {/hpf} [...] COLOR Yellow (Normal) :37 HgA1C , Office (07345) HgA1C , Office 5.5 % (Normal) Range: 4.6 - 7.1 :35 Blood Glucose , Office (48298) Blood Glucose , Office 170 (Normal) 94-Fnh-46725:12 Influenza A&B Viral Comments: PATIENT NOT FASTINGPERFORMED BY: [facility] Bvqopo8885 [facility] [id number] Information: SRC:NL Culture (62302) Viral Culture,Rapid,Influenza FLUABN (Normal) Comments: Negative:No Influenza A or B detected. 55-Dns-986466:40 Rapid Flu (17513 x 2) Influenza A Ag neg (Normal) 16-Cey-600006:16 CBC W/Diff, Automated Comments: Reason for Laboratory Test [facility] [address] [place], [address] ; Dr Khan Absolute Lymph [...] 4.2-5.4 WBC 9.6 K/mm3 (Normal) Range: 4.4-11.0 70-Lkf-881476:16 Ferritin Comments: Reason for Laboratory Test [facility] [address]ir[address] [place], [address] FERRITIN 33 ng/mL (Normal) Range: 8-252 84-Cfu-190362:16 Iron+Iron Binding Capacity Comments: Reason for Laboratory Test [facility] [id number] [place], [address] IRON SATURATION 12.8 % (Abnormal) Range: 15.0-55.0 IRON 56 ug/dL (Normal) Range: 50-170 TIBC 436 ug/dL (Normal) Range: 250-450 [id number] Retic Panel Comments: Reason for Laboratory Test [facility] [id number] [place], [address] IPF 3.1 % (Normal) Range: [...] (Abnormal) Range: 0.5-1.5 :16 HgA1C , Office (07773) Comments: 5.6 HgA1C , Office 5.6 % (Normal) Range: 4.6 - 7.1 :16 Blood Glucose , Office (41749) Blood Glucose , Office 145 (Normal) :22 PT (PROTHROMBIN TIME) (12016) Comments: Standing order; PATIENT NOT FASTINGPERFORMED BY: [id number] [facility] [id number] Prothrombin Time 11.5 {sec} (Normal) Range: 9.1-12.0 INR 1.1 (Normal) Range: 0.8-1.2 Comments: Reference interval is for non-anticoagulated patients. . Suggested INR therapeutic range for Vitamin K anta gonist therapy: Standard Dose (moderate intensity therapeutic range): 2.0 - 3.0 Higher intensity therapeutic range 2.5 - 3.5 :25 PT (PROTHROMBIN TIME) (00022) Comments: Standing order; PATIENT NOT FASTINGPERFORMED BY: [employer] [address] [facility] [id number] Prothrombin Time 17.1 {sec} (Abnormal) Range: 9.1-12.0 INR 1.7 (Abnormal) Range: 0.8-1.2 Comments: Reference interval is for non-anticoagulated patients. . Suggested INR therapeutic range for Vitamin K anta gonist therapy: Standard Dose (moderate intensity therapeutic range): 2.0 - 3.0 Higher intensity therapeutic range 2.5 - 3.5 :55 Blood Gases by [facility] Comments: [place] [address] [place] [address] SO2 ISTAT 95 % (Normal) Range: 95-99 TOTAL CO2 ISTAT 24 mmol/L (Normal) BE ISTAT -2 mmol/L (Normal) HCO3 ISTAT 23.1 mmol/L (Normal) Range: 22-26 PO2 I-STAT 77 {mmHG} (Normal) Range: 75-100 pCO2 - ISTAT 37.5 {mmHg} (Normal) Range: 35-45 pH - I-STAT 7.40 (Normal) Range: 7.35-7.45 BLD GAS TYPE ART (Normal) :35 Venous Blood Gas Comments: [place] [place] [address] ISTAT 25 [...] ANTONIO (Normal) :32 Venous Blood Gas Comments: [place] [address] [place] [address] ISTAT 25 [...] 7.32-7.42 BLD GAS TYPE JUAN ANTONIO (Normal) 1-Npy-451273:01 Basic Metabolic Profile (BMP) Comments: Order Date: 03/26/17Order Info: [id number] - *BMPComments: Reason:[facility] [address] [place], [place], [address] GAP 6 (Normal) Range: 5-15 CO2 27.0 [...] HOMEOSTASIS per A.D.A. criteria.; ADDENDA: another doc 9-Jdy-585117:01 CBC-Complete Blood Cnt No Diff Comments: Order Date: 03/26/17Order Info: [id number] - *CBC without DiffComments: Reason:[facility] [address] [place], [place], [address] ; another doc MPV 12.4 fL (Abnormal) [...] 7.6 K/mm3 (Normal) Range: 4.4-11.0 :31 Iron (85208) Comments: PATIENT NOT FASTINGPERFORMED BY: [facility] Fvhzid7326 [facility] [id number] Iron, Serum 70 ug/dL (Normal) Range: 27-139 :31 Ferritin (69485) Comments: PATIENT NOT FASTINGPERFORMED BY: [facility] Wuezxu8408 [facility] [id number] Ferritin, Serum 90 ng/mL (Normal) Range: 15-150 :31 Metabolic Panel, Comprehensive Comments: PATIENT NOT FASTINGPERFORMED BY: [facility] Obepws6701 [facility] [id number] (02018) ALT (SGPT) 16 [iU]/L (Normal) Range: 0-32 [...] Glucose, Serum 109 mg/dL (Abnormal) Range: 65-99 04-Njz-23239:31 CBC WITH MANUAL DIFF (95471) Comments: PATIENT NOT FASTINGPERFORMED BY: [facility] Gryeol2597 [facility] [id number] Immature Grans (Abs) 0.0 {x10E3/uL} Range: 0.0-0.1 [...] sent toHeron Hobbs M.D..PATIENT NOT FASTINGPERFORMED BY: [facility]6[address] [facility] [id number] 12:16 Range: 15-150 26-Auf-673999:16 CBC, PLATELETS & AUT DIFF Comments: A courtesy copy of this report has been sent toHeron Hobbs M.D..PATIENT NOT FASTINGPERFORMED BY: [employer] Jllhsb3737 [facility] [id number] (91274) Immature Grans (Abs) 0.0 {x10E3/uL} (Normal) Range: [...] 3.77-5.28 WBC 9.1 {x10E3/uL} (Normal) Range: 3.4-10.8 49-Xjt-596040:16 IRON & TOTAL IRON BINDING Comments: A courtesy copy of this report has been sent toHeron Hobbs M.D..PATIENT NOT FASTINGPERFORMED BY: [facility] Ucdvhv2436 [facility] [id number] CAPACITY (90735) Iron Saturation 10 % (Abnormal) Range: 15-55 Iron, Serum 40 ug/dL (Normal) Range: 27-139 UIBC 358 ug/dL (Normal) Range: 118-369 Iron Bind.Cap.(TIBC) 398 ug/dL (Normal) Range: 250-450 11-Qdi-308869:43 Culture, Urine Comments: [facility] [address] [place], [address] CUUR See Note (Normal) Comments: [...] $ <=20 S(NF) indicates non-formulary drug at [facility]. Approval by Infectious Disease Specialist required before non- formulary drugs may be ordered and/or dispensed. 9-Ozy-473668:00 Basic Metabolic Profile (BMP) Comments: [facility] [address] [place], [place], [address] GAP 10 (Normal) Range: 5-15 CO2 23.0 [...] <126 mg/dLsuggests IMPAIRED HOMEOSTASIS per A.D.A. criteria. 7-Wsc-242441:00 CBC W/Diff, Automated Comments: [facility] [address] [place], [address] ; ER Absolute Lymph 1.09 {X10_3/ul} (Normal) [...] 4.2-5.4 WBC 6.5 K/mm3 (Normal) Range: 4.4-11.0 1-Ihw-648687:00 Prothrombin Time w/INR Comments: [facility] [address] [place], [place], [address] INR 1.2 (Normal) PROTIME 14.6 s (Normal) Range: 11.7-14.9 0-Lku-354583:00 Microscopic Examination Comments: PATIENT WAS FASTINGPERFORMED BY: [facility]0801 [facility] [id number] Bacteria Few (Normal) Mucus Threads Present (Normal) Epithelial Cells (non renal) 0-10 {/hpf} (Normal) Range: 0 - 10 RBC 0-2 {/hpf} (Normal) Range: 0 - 2 WBC 0-5 {/hpf} (Normal) Range: 0 - 5 71-Pfe-28943:40 Urinalysis, Complete Comments: Order Date: 12/09/16Order Date: 12/09/16How was Urine Obtained? [facility] [address] [place], [place], [id number] MUCUS, URINE 0 SEEN {/hpf} (Normal) BACTERIA [...] (Normal) CLARITY Cloudy (Normal) COLOR Yellow (Normal) 90-Rtb-69563:00 Prothrombin Time w/INR Comments: REDRAW. PREVIOUS SPECIMEN REJECTED DUE TOQNS. 12/09/1647 Jessica Allen.REDRAW. PREVIOUS SPECIMEN REJECTED DUE TOQNS. 12/09/1647 Jessica Allen.[facility] Labor [address] [place], [address](259) INR 1.6 (Normal) PROTIME 18.1 s (Abnormal) Range: 11.7-14.9 12-Oac-84429:10 Basic Metabolic Profile (BMP) Comments: 'TROP' Serial specimen #1, #2, #3, or #4: [address] [place] [address] [place], [place], [address] GAP 11 (Normal) Range: 5-15 CO2 23.0 [...] A.D.A. criteria. :10 BNP,B-Type NATRIURETIC PEPTIDE Comments: [facility] Fr[address]ygns[address] [place], [place], [address] B-TYPE MARY JO PEP 243.7 pg/mL (Abnormal) Range: 0-100 :10 CBC W/Diff, Automated Comments: [facility] [address] [place], [place], [address] SMEAR COMMENT SCANNED (Normal) Comments: LYMPHOPENIA NOTED [...] Serial specimen #1, #2, #3, or #4: [facility] [address]nbd[address] [place], [place], [address] TROPONIN-I 0.43 ng/mL (Abnormal) Comments: TROPONIN-I EXPECTED VALUES <0.05 NEGATIVE 0.06 - 0.59 AT RISK OF FL > OR = 0.60 SUGGEST FL :02 Lactic Acid Comments: [facility] [address]vbv[address] [place], [place], [address] LACTIC ACID 2.2 mmol/L (Abnormal) Range: 0.4-2.0 70-Mti-437161:45 Rapid Flu (94925 x 2) Comments: Negative Influenza A Ag neg a/b (Normal) 5-Mri-954570:00 MICROALBUMIN: CREATININE RATIO Comments: PATIENT WAS FASTINGPERFORMED BY: A[employer]70 [facility] [id number] (66026) AND (02643) Microalb/Creat Ratio 29.7 {mg/g_creat} (Normal) Range: 0.0-30.0 Microalbumin, Urine 15.2 ug/mL (Normal) Creatinine, Urine 51.2 mg/dL (Normal) :00 URINALYSIS (56558) Comments: PATIENT WAS FASTINGPERFORMED BY: [employer]6370 [facility] [id number] Microscopic Examination See below: (Normal) Comments: Microscopic was indicated and was performed. Nitrite, Urine Negative (Normal) Urobilinogen,Semi-Qn 0.2 mg/dL (Normal) Range: 0.2-1.0 Bilirubin Negative (Normal) Occult Blood Trace (Abnormal) Ketones Negative (Normal) Glucose Negative (Normal) Protein Negative (Normal) WBC Esterase 2+ (Abnormal) Appearance Clear (Normal) Urine-Color Yellow (Normal) pH 6.0 (Normal) Range: 5.0-7.5 Specific [place] 1.010 (Normal) Range: 1.005-1.030 :00 TSH (03133) Comments: PATIENT WAS FASTINGPERFORMED BY: [facility]6[address] [facility] [id number] TSH 3.850 {uIU/mL} (Normal) Range: 0.450-4.500 2-Yum-287014:00 CBC, Platelets & Auto Diff Comments: PATIENT WAS FASTINGPERFORMED BY: [facility]6[address] [facility] [id number] (70677) Immature Grans (Abs) 0.0 {x10E3/uL} (Normal) Range: [...] 3.77-5.28 WBC 8.8 {x10E3/uL} (Normal) Range: 3.4-10.8 5-Wyt-753327:00 Metabolic Panel, Comprehensive Comments: PATIENT WAS FASTINGPERFORMED BY: [facility]6[address] [facility] [id number] (78643) ALT (SGPT) 24 [iU]/L (Normal) Range: 0-32 [...] Glucose, Serum 106 mg/dL (Abnormal) Range: 65-99 92-Hjv-62173:10 CBC W/Diff, Automated Comments: [facility] [address] [place], [place], [address] Absolute Lymph 1.29 {X10_3/ul} (Normal) Range: 0.83-4.51 [...] (Normal) Range: 4.4-11.0 :08 HgA1C , Office (07029) HgA1C , Office 5.5 % (Normal) Range: 4.6 - 7.1 :08 Blood Glucose , Office (67491) Blood Glucose , Office 155 (Normal) 4-Pcn-675695:25 BNP,B-Type NATRIURETIC PEPTIDE Comments: [facility] [address] [place], [place], [address] ; another doc B-TYPE MARY JO PEP 147.4 pg/mL (Abnormal) Range: 0-100 :18 HgA1C , Office (17855) HgA1C , Office 6.0 % (Normal) Range: 4.6 - 7.1 :18 Blood Glucose , Office (64632) Blood Glucose , Office 109 (Normal) :21 HgA1C , Office (74335) HgA1C , Office 6.1 % (Normal) Range: 4.6 - 7.1 9-Aug-55245:21 Blood Glucose , Office (63233) Blood Glucose , Office 117 (Normal) 4-Oxt-153245:21 METABOLIC PANEL, Comments: PATIENT NOT FASTINGPERFORMED BY: [employer] [facility] [id number] Information: [id number] COMPREHENSIVE (86661) ALT (SGPT) 15 [iU]/L (Normal) Range: 0-32 [...] Glucose, Serum 92 mg/dL (Normal) Range: 65-99 3-Ihz-667438:21 Vitamin D Hydroxy (16967) Comments: PATIENT NOT FASTINGPERFORMED BY: [facility] ChannelRiverview Medical CenterIlyath7271 [facility] [id number] Vitamin D, 25-Hydroxy 59.7 ng/mL (Normal) Range: 30.0-100.0 Comments: Vitamin D deficiency has been defined by the [place] of[place] and an Endocrine Society practice guideline as alevel of serum 25-OH vitamin D less than 20 ng/mL (1,2).The Endocrine Society went on to further define vitamin Dinsufficiency as a level between 21 and 29 ng/mL (2).1. IOM ([place] [employer]). 2010. Dietary reference intakes for calcium and D. [place]: The National Academies Press.2. [place] MF, James MCGOWAN, Dolores MARTINEZ, et al. Evaluation, treatment, and prevention of vitamin D deficiency: an Endocrine Society clinical practice guideline. JCEM. 2010; 96(7):1911-30. -:06 HgA1C , Office (76221) HgA1C , Office 6.0 % (Normal) Range: 4.6 - 7.1 :15 HgA1C , Office (34054) HgA1C , Office 6.4 % (Normal) Range: 4.6 - 7.1 :31 HgA1C , Office (47927) HgA1C , Office 6.0 % (Normal) Range: 4.6 - 7.1 :04 HgA1C , Office (07750) HgA1C , Office 6.0 % (Normal) Range: 4.6 - 7.1 :09 HgA1C , Office (60479) HgA1C , Office 6.0 % (Normal) Range: 4.6 - 7.1 :32 HgA1C , Office (63458) HgA1C , Office 6.2 % (Normal) Range: 4.6 - 7.1 :24 HgA1C , Office (65763) HgA1C , Office 6.2 % (Normal) Range: 4.6 - 7.1 :59 PT (Prothrobim Time) Comments: PATIENT NOT FASTINGPERFORMED BY: [facility] Bcdwph5543 [facility] [id number] Information: [id number] (76237) Prothrombin Time 25.2 {sec} (Abnormal) Range: 9.1-12.0 INR 2.4 (Abnormal) Range: 0.8-1.2 Comments: Reference interval is for non-anticoagulated patients. . Suggested INR therapeutic range for Vitamin K anta gonist therapy: Standard Dose (moderate intensity therapeutic range): 2.0 - 3.0 Higher intensity therapeutic range 2.5 - 3.5 :22 PT (Prothrobim Time) Comments: PATIENT NOT FASTINGPERFORMED BY: [place] [address] [facility] [id number] Information: [id number] (69537) Prothrombin Time 22.4 {sec} (Abnormal) Range: 9.1-12.0 INR 2.2 (Abnormal) Range: 0.8-1.2 Comments: Reference interval is for non-anticoagulated patients. . Suggested INR therapeutic range for Vitamin K anta gonist therapy: Standard Dose (moderate intensity therapeutic range): 2.0 - 3.0 Higher intensity therapeutic range 2.5 - 3.5 11-Bdm-013199:39 HgA1C , Office (93037) HgA1C , Office 6.5 % (Normal) Range: 4.6 - 7.1 33-Vuz-688092:37 PT (Prothrobim Time) Comments: PATIENT NOT FASTINGPERFORMED BY: [place] [address] [facility] [id number] Information: [id number] (09127) Prothrombin Time 20.7 {sec} (Abnormal) Range: 9.1-12.0 INR 1.9 (Abnormal) Range: 0.8-1.2 Comments: Reference interval is for non-anticoagulated patients. . Suggested INR therapeutic range for Vitamin K anta gonist therapy: Standard Dose (moderate intensity therapeutic range): 2.0 - 3.0 Higher intensity therapeutic range 2.5 - 3.5 33-Hjn-773771:34 BNTP (49265) Comments: PATIENT NOT FASTINGPERFORMED BY: [place] [address] [facility] [id number] B-Type Natriuretic Peptide 156.2 pg/mL (Abnormal) Range: 0.0-100.0 36-Zts-501454:34 PT (Prothrobim Time) (94182) Comments: PATIENT NOT FASTINGPERFORMED BY: [facility]6[address] [facility] [id number] Prothrombin Time 13.1 {sec} (Abnormal) Range: 9.1-12.0 INR 1.3 (Abnormal) Range: 0.8-1.2 Comments: Reference interval is for non-anticoagulated patients. . Suggested INR therapeutic range for Vitamin K anta gonist therapy: Standard Dose (moderate intensity therapeutic range): 2.0 - 3.0 Higher intensity therapeutic range 2.5 - 3.5 51-Sin-403538:34 CULTURE, SPUTUM (68171) Comments: PATIENT NOT FASTINGPERFORMED BY: [facility]6[address] [facility] [id number] Lower Respiratory Culture Final report (Normal) Result 1 RRF (Normal) Comments: Routine respiratory anisa 61-Pdn-837061:20 PT (Prothrobim Time) Comments: PATIENT NOT FASTINGPERFORMED BY: [facility]6[address] [facility] [id number] Information: [id number] (04945) Prothrombin Time 21.0 {sec} (Abnormal) Range: 9.1-12.0 INR 2.0 (Abnormal) Range: 0.8-1.2 Comments: Reference interval is for non-anticoagulated patients. . Suggested INR therapeutic range for Vitamin K anta gonist therapy: Standard Dose (moderate intensity therapeutic range): 2.0 - 3.0 Higher intensity therapeutic range 2.5 - 3.5 04-Foy-728418:11 PT (Prothrobim Time) Comments: PATIENT NOT FASTINGPERFORMED BY: [facility]6[address] [facility] [id number] Information: [id number] (61260) Prothrombin Time 15.3 {sec} (Abnormal) Range: 9.1-12.0 INR 1.5 (Abnormal) Range: 0.8-1.2 Comments: Reference interval is for non-anticoagulated patients. . Suggested INR therapeutic range for Vitamin K anta gonist therapy: Standard Dose (moderate intensity therapeutic range): 2.0 - 3.0 Higher intensity therapeutic range 2.5 - 3.5 :45 HgA1C , Office (01976) HgA1C , Office 6.5 % (Normal) Range: 4.6 - 7.1 :18 PT (Prothrobim Time) Comments: PATIENT NOT FASTINGPERFORMED BY: [facility]6[address] [facility] [id number] Information: [id number] (15498) Prothrombin Time 20.0 {sec} (Abnormal) Range: 9.1-12.0 INR 1.9 (Abnormal) Range: 0.8-1.2 Comments: Reference interval is for non-anticoagulated patients. . Suggested INR therapeutic range for Vitamin K anta gonist therapy: Standard Dose (moderate intensity therapeutic range): 2.0 - 3.0 Higher intensity therapeutic range 2.5 - 3.5 :24 HgA1C , Office (28471) HgA1C , Office 6.1 % (Normal) Range: 4.6 - 7.1 :53 HgA1C , Office (70578) HgA1C , Office 6.2 % (Normal) Range: 4.6 - 7.1 :05 CBC WITH MANUAL DIFF Comments: today; PATIENT NOT FASTINGPERFORMED BY: [place] [address] [facility] [id number] Information: [id number] (69690) Hematology Comments: Note: (Normal) Comments: Verified by [...] 3.77-5.28 WBC 9.2 {x10E3/uL} (Normal) Range: 4.0-10.5 06-Zaa-811717:30 HgA1C , Office (70468) HgA1C , Office 6.1 % (Normal) Range: 4.6 - 7.1 96-Waj-461435:33 PT (Prothrobim Time) Comments: PATIENT NOT FASTINGPERFORMED BY: [place] [address] [facility] [id number] Information: [id number] (96094) Prothrombin Time 17.9 {sec} (Abnormal) Range: 9.1-12.0 INR 1.7 (Abnormal) Range: 0.8-1.2 Comments: Reference interval is for non-anticoagulated patients. . Suggested INR therapeutic range for Vitamin K anta gonist therapy: Standard Dose (moderate intensity therapeutic range): 2.0 - 3.0 Higher intensity therapeutic range 2.5 - 3.5 94-Jyo-705534:27 PT (Prothrobim Time) Comments: PATIENT NOT FASTINGPERFORMED BY: [facility] [facility] [id number] Information: [id number] (04927) Prothrombin Time 26.3 {sec} (Abnormal) Range: 9.1-12.0 INR 2.6 (Abnormal) Range: 0.8-1.2 Comments: Reference interval is for non-anticoagulated patients. . Suggested INR therapeutic range for Vitamin K anta gonist therapy: Standard Dose (moderate intensity therapeutic range): 2.0 - 3.0 Higher intensity therapeutic range 2.5 - 3.5 5-Myx-271347:01 BILAT SCRN DIGITAL & CAD Radiology Report [...] Cho M.D.July 25, 2012 at 11:23:11 AM [id number] Signed GP/GP If you are the referring physician and would like to consult with theradiologist who provided this interpretation, please contact Clinton Ignacio at [phone]. If this radiologist is unavailable, youwill be directed to another radiologist to assist. If you are a patient with a question regarding this report, pleasecontactyour referring physician directly. Professional Interpretation Provided By: [facility], Phone , These documents contain leg ally [...] 07/25/12 1128 Sign by: Irvin Cho MD 40-Bxv-958560:44 HgA1C , Office (02887) HgA1C , Office 6.6 % (Normal) Range: 4.6 - 7.1 :44 Blood Glucose , Office (18326) Blood Glucose , Office 101 (Normal) :02 PT (Prothrobim Time) Comments: standing order; PATIENT NOT FASTINGPERFORMED BY: [employer]6[address] [facility] [id number] Information: [id number] (33596) Prothrombin Time 20.6 {sec} (Abnormal) Range: 9.1-12.0 INR 2.0 (Abnormal) Range: 0.8-1.2 Comments: Reference interval is for non-anticoagulated patients. . Suggested INR therapeutic range for Vitamin K anta gonist therapy: Standard Dose (moderate intensity therapeutic range): 2.0 - 3.0 Higher intensity therapeutic range 2.5 - 3.5 55-Zzn-859372:09 HgA1C , Office (74515) HgA1C , Office 6.1 % (Normal) Range: 4.6 - 7.1 80-Coe-01446:00 Prothrombin Time (PT) Comments: PATIENT NOT FASTINGPERFORMED BY: [facility] [facility] [id number] Prothrombin Time 21.7 {sec} (Abnormal) Range: 9.1-12.0 INR 2.1 (Abnormal) Range: 0.8-1.2 Comments: Reference interval is for non-anticoagulated patients. . Suggested INR therapeutic range for Vitamin K anta gonist therapy: Standard Dose (moderate intensity therapeutic range): 2.0 - 3.0 Higher intensity therapeutic range 2.5 - 3.5 :42 PT (PROTHROMBIN TIME) Comments: PATIENT NOT FASTINGPERFORMED BY: [facility] [facility] [id number] Information: [id number] (41596) Prothrombin Time 18.7 {sec} (Abnormal) Range: 9.1-12.0 INR 1.8 (Abnormal) Range: 0.8-1.2 Comments: Reference interval is for non-anticoagulated patients. . Suggested INR therapeutic range for Vitamin K anta gonist therapy: Standard Dose (moderate intensity therapeutic range): 2.0 - 3.0 Higher intensity therapeutic range 2.5 - 3.5 04-Ori-75451:06 PT (PROTHROMBIN TIME) Comments: PATIENT NOT FASTINGPERFORMED BY: [place] [address] [facility] [id number] Information: [id number] (58275) Prothrombin Time 21.7 {sec} (Abnormal) Range: 9.1-12.0 INR 2.0 (Abnormal) Range: 0.8-1.2 Comments: Reference interval is for non-anticoagulated patients. . Suggested INR therapeutic range for Vitamin K anta gonist therapy: Standard Dose (moderate intensity therapeutic range): 2.0 - 3.0 Higher intensity therapeutic range 2.5 - 3.5 12-Fcx-994372:01 ERYTHROPOIETIN (40159) Comments: PATIENT NOT FASTINGPERFORMED BY: [facility] [facility] [id number] Erythropoietin 38.7 m[iU]/mL (Abnormal) Range: 4.2-27.8 27-Wqh-616388:01 Vitamin D Hydroxy (03595) Comments: PATIENT NOT FASTINGPERFORMED BY: [place] [address] [facility] [id number] Vitamin D, 25-Hydroxy 52.5 ng/mL (Normal) Range: 30.0-100.0 Comments: Vitamin D deficiency has been defined by the [place] of[employer] and an Endocrine Society practice guideline as alevel of serum 25-OH vitamin D less than 20 ng/mL (1,2).The Endocrine Society went on to further define vitamin Dinsufficiency as a level between 21 and 29 ng/mL (2).1. IOM ([place] [employer]). 2010. Dietary reference intakes for calcium and D. [place]: The National Academies Press.2. [place] MF, James MCGOWAN, Dolores MARTINEZ, et al. Evaluation, treatment, and prevention of vitamin D deficiency: an Endocrine Society clinical practice guideline. JCEM. 2010; 96(7):1911-30. 15-Jis-941514:01 VITAMIN B-12 (CYANOCOBALAMIN) Comments: PATIENT NOT FASTINGPERFORMED BY: [employer] [facility] [id number] (42207) Vitamin B12 779 pg/mL (Normal) Range: 211-946 80-Wjj-212419:01 RETICULOCYTE COUNT MANUL Comments: PATIENT NOT FASTINGPERFORMED BY: [employer] Eecjxj1810 [facility] [id number] (27636) Reticulocyte Count 1.9 % (Normal) Range: 0.5-3.0 06-Cgy-107016:01 LDH (LD) (LACTATE DEHYDROGENASE) Comments: PATIENT NOT FASTINGPERFORMED BY: [employer] Ybeqnd9695 [facility] [id number] (19368) LDH 174 [iU]/L (Normal) Range: 0-214 71-Dqt-941931:01 IRON BINDING CAPACITY Comments: PATIENT NOT FASTINGPERFORMED BY: [employer] Ssbgiy8145 [facility] [id number] Information: [id number] (TIBC) (28495) Iron Saturation 9 % (Abnormal) Range: 15-55 Iron, Serum 35 ug/dL (Normal) Range: 35-155 UIBC 355 ug/dL (Normal) Range: 150-375 Iron Bind.Cap.(TIBC) 390 ug/dL (Normal) Range: 250-450 89-Rtv-818742:01 FERRITIN (37094) Comments: PATIENT NOT FASTINGPERFORMED BY: [facility] [facility] [id number] Ferritin, Serum 59 ng/mL (Normal) Range: 13-150 :47 HgA1C , Office (17702) HgA1C , Office 6.2 % (Normal) Range: 4.6 - 7.1 :48 Prothrombin Time (PT) Comments: PERFORMED BY: [place] [address] [facility] [id number] Prothrombin Time 20.1 {sec} (Abnormal) Range: 9.1-12.0 Comments: Please note reference interval change INR 1.9 (Abnormal) Range: 0.8-1.2 Comments: Reference interval is for non-anticoagulated patients. . Suggested INR therapeutic range for Vitamin K anta gonist therapy: Standard Dose (moderate intensity therapeutic range): 2.0 - 3.0 Higher intensity therapeutic range 2.5 - 3.5 :56 HgA1C , Office (63997) HgA1C , Office 6.4 % (Normal) Range: 4.6 - 7.1 :56 Blood Glucose , Office (11371) Blood Glucose , Office 111 (Normal) :48 PT (PROTHROMBIN TIME) Comments: PATIENT NOT FASTINGPERFORMED BY: [facility] [facility] [id number] Information: [id number] (44180) Prothrombin Time 28.0 {sec} (Abnormal) Range: 9.1-12.0 Comments: Please note reference interval change INR 2.6 (Abnormal) Range: 0.8-1.2 Comments: Reference interval is for non-anticoagulated patients. . Suggested INR therapeutic range for Vitamin K anta gonist therapy: Standard Dose (moderate intensity therapeutic range): 2.0 - 3.0 Higher intensity therapeutic range 2.5 - 3.5 8-Vwt-832914:42 BILAT SCRN DIGITAL & CAD Radiology Report [...] 07/20/11 1305 Sign by: Irvin Cho MD 4-Ezc-195046:14 PT (PROTHROMBIN TIME) Comments: PATIENT NOT FASTINGPERFORMED BY: [employer] [facility] [id number] Information: [id number] (89972) Prothrombin Time 37.0 {sec} (Abnormal) Range: 9.1-12.0 Comments: Please note reference interval change INR 3.5 (Abnormal) Range: 0.8-1.2 Comments: Reference interval is for non-anticoagulated patients. . Suggested INR therapeutic range for Vitamin K anta gonist therapy: Standard Dose (moderate intensity therapeutic range): 2.0 - 3.0 Higher intensity therapeutic range 2.5 - 3.5 0-Cdg-372924:15 URIC ACID BLOOD (25186) Comments: PATIENT NOT FASTINGPERFORMED BY: My Damn ChannelRiverview Medical CenterJribqr7742 [place] [facility] NumberCritical access hospital [id number] Information: [id number],2ND ORDER Uric Acid, Serum 5.3 mg/dL (Normal) Range: 2.5-7.1 Comments: Therapeutic target for gout patients: <6.0 17-Qbw-713380:26 FECAL OCCULT- Tubes sent home (10354) FECAL OCCULT HGB ASSAY, QUAL, 1-3 SIMULTANEOU negative (Normal) 86-Kvn-763395:37 FERRITIN (12735) Comments: PATIENT NOT FASTINGPERFORMED BY: My Damn Channel Iyzofi[address] [place] [id number] Ferritin, Serum 109 ng/mL (Normal) Range: 13-150 31-Fbb-505620:37 IRON (98619) Comments: PATIENT NOT FASTINGPERFORMED BY: [employer] Sleep Numberblin [place] [id number] Iron, Serum 46 ug/dL (Normal) Range: 35-155 85-Szs-525218:37 FOLIC ACID SERUM (64923) Comments: PATIENT NOT FASTINGPERFORMED BY: [employer] Dam[employer] Channel Dbjihf3406 [address] [facility] NumberScotland [facility] Hospitalin [place] [id number] Folate (Folic Acid), Serum >19.9 ng/mL (Normal) Comments: Indeterminate: 2.2 - 3.0 Deficient: <2.2 95-Fkn-295296:37 RETICULOCYTE COUNT MANUL Comments: PATIENT NOT FASTINGPERFORMED BY: [employer] Sleep NumberScotland Memorial Hospitalin [place] [id number] (10098) Reticulocyte Count 1.6 % (Normal) Range: 0.5-3.0 70-Zuv-380348:37 LDH (LD) (LACTATE DEHYDROGENASE) Comments: PATIENT NOT FASTINGPERFORMED BY: [employer] Fuhmrc[address] [facility] [place] [id number] (27281) LDH 179 [iU]/L (Normal) Range: 0-214 02-Btu-741823:37 VITAMIN B-12 (CYANOCOBALAMIN) Comments: PATIENT NOT FASTINGPERFORMED BY: [employer] Mtftxu2060 [address] [facility] Centerin [place] [id number] (67437) Vitamin B12 668 pg/mL (Normal) Range: 211-946 33-Jkf-167035:37 TSH (56055) Comments: PATIENT NOT FASTINGPERFORMED BY: LabCoRiverview Medical CenterFdqloo8158 [facility] [id number] TSH 2.500 {uIU/mL} (Normal) Range: 0.450-4.500 95-Upo-240015:37 CBC WITH MANUAL DIFF Comments: PATIENT NOT FASTINGPERFORMED BY: LabCoRiverview Medical CenterOmqmxv6937 [facility] [id number] Information: [id number] (95607) Immature Grans (Abs) 0.0 {x10E3/uL} (Normal) Range: [...] (Normal) Range: 4.0-10.5 :37 Uric Acid Blood (00316) Comments: PATIENT NOT FASTINGPERFORMED BY: YAO [facility]6370 [facility] [id number] Uric Acid, Serum 10.0 mg/dL (Abnormal) Range: 2.5-7.1 Comments: Therapeutic target for gout patients: <6.0 :45 Blood Glucose , Office (14635) Blood Glucose , Office 101 (Normal) :45 HgA1C , Office (83706) HgA1C , Office 6.3 % (Normal) Range: 4.6 - 7.1 :25 PT (Prothrobim Time) Comments: Protime/INR Standing Order; PATIENT NOT FASTINGPERFORMED BY: YAO [place] [address] [facility] [id number] Information: [id number] (11961) Prothrombin Time 28.9 {sec} (Abnormal) Range: 8.7-11.5 INR 2.7 (Abnormal) Range: 0.8-1.2 Comments: Reference interval is for non-anticoagulated patients. . Suggested INR therapeutic range for Vitamin K anta gonist therapy: Standard Dose (moderate intensity therapeutic range): 2.0 - 3.0 Higher intensity therapeutic range 2.5 - 3.5 :28 PT (PROTHROMBIN TIME) Comments: PATIENT NOT FASTINGPERFORMED BY: YAO [facility]6370 [facility] [id number] Information: [id number] (22566) Prothrombin Time 24.6 {sec} (Abnormal) Range: 8.7-11.5 INR 2.3 (Abnormal) Range: 0.8-1.2 Comments: Reference interval is for non-anticoagulated patients. . Suggested INR therapeutic range for Vitamin K anta gonist therapy: Standard Dose (moderate intensity therapeutic range): 2.0 - 3.0 Higher intensity therapeutic range 2.5 - 3.5 : Potassium, Serum 5.2 mmol/L (Normal) Comments: PERFORMED BY: YAO [address]bl[address] [place] [id number] 42 Range: 3.5-5.2 7-Evm-946426:42 Prothrombin Time (PT) Comments: PERFORMED BY: [facility]6370 [facility] [id number] Prothrombin Time 12.8 {sec} (Abnormal) Range: 8.7-11.5 INR 1.2 (Normal) Range: 0.8-1.2 Comments: Reference interval is for non-anticoagulated patients. . Suggested INR therapeutic range for Vitamin K anta gonist therapy: Standard Dose (moderate intensity therapeutic range): 2.0 - 3.0 Higher intensity therapeutic range 2.5 - 3.5 31-Zjo-258222:08 Prothrombin Time (PT) Comments: PERFORMED BY: [facility]6370 [facility] [id number] Prothrombin Time 19.2 {sec} (Abnormal) Range: 8.7-11.5 INR 1.8 (Abnormal) Range: 0.8-1.2 Comments: Reference interval is for non-anticoagulated patients. . Suggested INR therapeutic range for Vitamin K anta gonist therapy: Standard Dose (moderate intensity therapeutic range): 2.0 - 3.0 Higher intensity therapeutic range 2.5 - 3.5 :19 Vitamin D Hydroxy (59735) Comments: PATIENT WAS FASTINGPERFORMED BY: [facility]6370 [facility] [id number] Vitamin D, 25-Hydroxy 43.1 ng/mL (Normal) Range: 32.0-100.0 Comments: Effective July 09, 2011 Vitamin D, 25-Hydroxy reference intervals will be changing to 30-100. .Recent studies consider the lower li osbaldo of 32.0 ng/mL to be athreshold for optimal health.Ye JARVIS. J Nutr. 2004;135(2):317-22. :19 MICROALBUMIN: CREATININE RATIO Comments: PATIENT WAS FASTINGPERFORMED BY: [place] [address] [facility] [id number] (82260) AND (99392) Microalb/Creat Ratio 24.6 {mg/g_creat} (Normal) Range: 0.0-30.0 Creatinine, Urine 23.6 mg/dL (Normal) Range: 15.0-278.0 Microalbumin, Urine 5.8 ug/mL (Normal) Range: 0.0-17.0 :19 LIPID PANEL (90578) Comments: PATIENT WAS FASTINGPERFORMED BY: My Damn Channel Effccw8739 [facility] [id number] LDL/HDL Ratio 1.5 {ratio_units} (Normal) Range: 0.0-3.2 [...] MANUAL DIFF Comments: PATIENT WAS FASTINGPERFORMED BY: [employer] ([employer]) Funlzt2682 [facility] [id number] Information: [id number] CC:[id number] (26155) Immature Grans (Abs) 0.0 {x10E3/uL} (Normal) Range: [...] COMPREHENSIVE Comments: PATIENT WAS FASTINGPERFORMED BY: [facility]Co Whwddt2434 [facility] [id number]; appt 06/05/11 (91185) ALT (SGPT) 16 [iU]/L (Normal) Range: 0-40 [...] Range: 65-99 :59 Blood Glucose , Office (73553) Blood Glucose , Office 129 (Normal) :04 Prothrombin Time (PT) Comments: PERFORMED BY: YAO IntegriChainSampson Regional Medical Center [id number] Prothrombin Time 25.1 {sec} (Abnormal) Range: 8.7-11.5 INR 2.4 (Abnormal) Range: 0.8-1.2 Comments: Reference interval is for non-anticoagulated patients. . Suggested INR therapeutic range for Vitamin K anta gonist therapy: Standard Dose (moderate intensity therapeutic range): 2.0 - 3.0 Higher intensity therapeutic range 2.5 - 3.5 :34 PT (PROTHROMBIN TIME) Comments: PATIENT NOT FASTINGPERFORMED BY: YAO [employer]70 Anywhere to GoSampson Regional Medical Center [id number] Information: [id number],NO DRAW FEE 2ND ORD ER (65465) Prothrombin Time 30.5 {sec} (Abnormal) Range: 8.7-11.5 INR 2.9 (Abnormal) Range: 0.8-1.2 Comments: Reference interval is for non-anticoagulated patients. . Suggested INR therapeutic range for Vitamin K anta gonist therapy: Standard Dose (moderate intensity therapeutic range): 2.0 - 3.0 Higher intensity therapeutic range 2.5 - 3.5 :38 Vitamin D Hydroxy (33787) Comments: today and 3 mos; PATIENT NOT FASTINGPERFORMED BY: HeyCrowd VytronUSSampson Regional Medical Center [id number] Information: [id number] Vitamin D, 25-Hydroxy 56.7 ng/mL (Normal) Range: 32.0-100.0 Comments: Recent studies consider the lower limit of 32.0 ng/mL to be athreshold for optimal health.Ye JARVIS. J Nutr. 2004;135(2):317-22. 85-Lhw-989486:00 MICROALBUMIN: CREATININE Comments: PATIENT NOT FASTINGPERFORMED BY: LabioSemanticsRiverview Medical CenterJzahkv4976 [facility] [id number] Information: [id number] RATIO (84038) AND (24532) Microalb/Creat Ratio 10.0 {mg/g_creat} (Normal) Range: 0.0-30.0 Microalbumin, Urine 4.3 ug/mL (Normal) Range: 0.0-17.0 Creatinine, Urine 43.2 mg/dL (Normal) Range: 15.0-278.0 :32 Blood Glucose , Office (59647) Blood Glucose , Office 137 (Normal) :32 HgA1C , Office (94033) HgA1C , Office 6.1 % (Normal) Range: 4.6 - 7.1 :38 Prothrombin Time (PT) Comments: PERFORMED BY: LabCoGallup Indian Medical CenterAssacm6079 [facility] [id number] Prothrombin Time 26.7 {sec} (Abnormal) Range: 8.7-11.5 INR 2.5 (Abnormal) Range: 0.8-1.2 Comments: Reference interval is for non-anticoagulated patients. . Suggested INR therapeutic range for Vitamin K anta gonist therapy: Standard Dose (moderate intensity therapeutic range): 2.0 - 3.0 Higher intensity therapeutic range 2.5 - 3.5 :21 HgA1C , Office (27872) HgA1C , Office 6.0 % (Normal) Range: 4.6 - 7.1 :21 Blood Glucose , Office (13511) Blood Glucose , Office 118 (Normal) :10 DEXA BONE DENSITY STUDY (HP) Radiology Report See Note (Normal) Comments: CLINICAL:This is a 65-year-old female patient for post menopausal screening. EXAMINATION:DUAL ENERGY X-RAY ABSORPTIOMETRY / DEXA. TECHNIQUE:Bone Density Measurements (BMD) of lumbar spine and bilateral hips wereobtained using a [employer] scanner.. COMPARISON:None. FINDINGS: Lumbar Spine (L1-L4): g/cm2 [...] on 07/19/10 0726 Sign by: Irvin Cho 01-Axv-72865:00 BILAT SCRN DIGITAL & CAD Radiology Report [...] on 07/19/10 1052 Sign by: ELAINE NIEVES 66-Yjm-18656:59 Prothrombin Time (PT) Comments: PERFORMED BY: YAO [employer]fin[address] Boomer[employer] CommerceSampson Regional Medical Center [id number] Prothrombin Time 30.2 {sec} (Abnormal) Range: 8.7-11.5 INR 2.8 (Abnormal) Range: 0.8-1.2 Comments: Reference interval is for non-anticoagulated patients. . Suggested INR therapeutic range for Vitamin K anta gonist therapy: Standard Dose (moderate intensity therapeutic range): 2.0 - 3.0 Higher intensity therapeutic range 2.5 - 3.5 78-Wpq-182662:36 PT (Prothrobim Time) Comments: standing order; PATIENT NOT FASTINGPERFORMED BY: My Damn ChannelRiverview Medical CenterMreftr8198 [facility] [id number] Information: [id number] (42141) Prothrombin Time 17.5 {sec} (Abnormal) Range: 8.7-11.5 INR 1.6 (Abnormal) Range: 0.8-1.2 Comments: Reference interval is for non-anticoagulated patients. . Suggested INR therapeutic range for Vitamin K anta gonist therapy: Standard Dose (moderate intensity therapeutic range): 2.0 - 3.0 Higher intensity therapeutic range 2.5 - 3.5 :22 Prothrombin Time (PT) Comments: PERFORMED BY: My Damn ChannelRiverview Medical CenterJrcbma8411 [facility] [id number] Prothrombin Time 19.0 {sec} (Abnormal) Range: 8.7-11.5 INR 1.8 (Abnormal) Range: 0.8-1.2 Comments: Reference interval is for non-anticoagulated patients..Suggested INR therapeutic range for Vitamin Kantagonist therapy:Standard Dose (moderate intensitytherapeutic range): 2.0 - 3.0Higher intensity therapeutic range 2.5 - 3.5 :24 HgA1C , Office (44320) HgA1C , Office 6.6 % (Normal) Range: 4.6 - 7.1 :24 Blood Glucose , Office (06919) Blood Glucose , Office 128 (Normal) :25 CBC With Differential/Platelet Comments: PATIENT WAS FASTINGPERFORMED BY: LabCoRiverview Medical CenterDhhuzx8127 [facility] [id number] Immature Grans (Abs) 0.0 {x10E3/uL} (Normal) Range: [...] 3.80-5.10 WBC 7.0 {x10E3/uL} (Normal) Range: 4.0-10.5 72-Opu-77418:25 Comp. Metabolic Panel (14) Comments: PATIENT WAS FASTINGPERFORMED BY: LabCoRiverview Medical CenterUdbygq4139 [facility] [id number] ALT (SGPT) 18 [iU]/L (Normal) Range: 0-40 [...] With LDL/HDL Comments: PATIENT WAS FASTINGPERFORMED BY: NewVisions CommunicationsCritical access hospital [id number] Ratio LDL Cholesterol Calc 67 mg/dL (Normal) [...] Time (PT) Comments: PATIENT WAS FASTINGPERFORMED BY: [employer]6370 [facility] [id number] INR 1.7 (Abnormal) Range: 0.8-1.2 Comments: Reference interval is for non-anticoagulated patients..Suggested INR therapeutic range for Vitamin Kantagonist therapy:Standard Dose (moderate intensitytherapeutic range): 2.0 - 3.0Higher intensity therapeutic range 2.5 - 3.5 Prothrombin Time 18.0 {sec} Range: 8.7-11.5 (Abnormal) 02-May-2010 Vitamin D, 25-Hydroxy 44.2 ng/mL (Normal) Comments: PATIENT WAS FASTINGPERFORMED BY: [employer]6370 [facility] [id number] 9:25 Range: 32.0-100.0 Comments: Recent studies consider the lower limit of 32.0 ng/mL to be athreshold for optimal health.Ye JARVIS. J Nutr. 2004;135(2):317-22. 33-Mkf-155882:08 Uric Acid, 24 hr Urine Comments: PERFORMED BY: [facility] Centerlin6370 [facility] [id number] Information: 02/13@6AM 02/14@545AM Uric Acid, Urine 24hr 502.4 {mg/24_hr} (Normal) Range: 250.0-750.0 Uric Acid, Urine 15.7 mg/dL (Normal) 00-Ctb-200361:21 Prothrombin Time (PT) Comments: PERFORMED BY: [employer] Dam[employer] Channel Hmezmg0303 [facility] [id number] Prothrombin Time 24.1 {sec} (Abnormal) Range: 8.7-11.5 INR 2.4 (Abnormal) Range: 0.8-1.2 Comments: Reference interval is for non-anticoagulated patients..Suggested INR therapeutic range for Vitamin Kantagonist therapy:Standard Dose (moderate intensitytherapeutic range): 2.0 - 3.0Higher intensity therapeutic range 2.5 - 3.5 Uric Acid, Serum 10.8 mg/dL (Abnormal) Comments: PERFORMED BY: [facility]6[address] [facility] [id number] :21 Range: 2.4-8.2 40-Ssr-251939:22 HgA1C , Office (78218) HgA1C , Office 6.4 % (Normal) Range: 4.6 - 7.1 38-Zbm-574608:22 Blood Glucose , Office (86785) Blood Glucose , Office 137 (Normal) 25-Zsp-697226:38 URIC ACID BLOOD (76808) Comments: PATIENT NOT FASTINGPERFORMED BY: [facility]6[address] [facility] [id number] Information: [id number] Uric Acid, Serum 9.0 mg/dL (Abnormal) Range: 2.4-8.2 15-Yls-051962:16 FOOT,MIN 3 VIEWS (MT) Radiology Report See Note (Normal) Comments: Exam Number: [id number] LEFT FOOT Three views of the left [...] seen. IMPRESSIONPlantar spur. Reported By: IRVIN CHO 18-Zjd-238047:56 PTT (Activated Partial Comments: PATIENT NOT FASTINGPERFORMED BY: My Damn ChannelRiverview Medical CenterNuyenz8503 [facility] [id number] Thromboplastin Time) (58713) aPTT 56 {sec} (Abnormal) Range: 24-33 Comments: This test has not been validated for monitoring unfractionated heparintherapy. aPTT-based therapeutic ranges for unfractionated heparintherapy have not been established. For general guidelines onHeparin monitoring, refer to the [facility] Directory of Services. 67-Hwo-167669:56 PT (Prothrobim Time) Comments: PATIENT NOT FASTINGPERFORMED BY: [employer]6[address] [facility] [id number] Information: [id number] (31583) Prothrombin Time 24.2 {sec} (Abnormal) Range: 8.7-11.5 INR 2.5 (Abnormal) Range: 0.8-1.2 Comments: Reference interval is for non-anticoagulated patients..Suggested INR therapeutic range for Vitamin Kantagonist therapy:Standard Dose (moderate intensitytherapeutic range): 2.0 - 3.0Higher intensity therapeutic range 2.5 - 3.5 48-Hca-291605:49 Prothrombin Time (PT) Comments: PERFORMED BY: [employer] [facility] [id number] Prothrombin Time 26.2 {sec} (Abnormal) Range: 8.7-11.5 INR 2.7 (Abnormal) Range: 0.8-1.2 Comments: Reference interval is for non-anticoagulated patients..Suggested INR therapeutic range for Vitamin Kantagonist therapy:Standard Dose (moderate intensitytherapeutic range): 2.0 - 3.0Higher intensity therapeutic range 2.5 - 3.5 Hemoglobin A1c 6.1 % (Abnormal) Comments: PERFORMED BY: My Damn ChannelRiverview Medical CenterLdhoul0730 [facility] [id number] :56 Range: 4.8-5.6 Comments: Increased risk for diabetes: 5.7 - 6.4Diabetes: >6.4Glycemic control for adults with diabetes: <7.0.Please note reference interval change :21 HgA1C , Office (00056) HgA1C , Office 6.1 % (Normal) Range: 4.6 - 7.1 :21 Blood Glucose , Office (80165) Blood Glucose , Office 98 (Normal) :46 CBC With Differential/Platelet Comments: A courtesy copy of this report has been sent [phone].PATIENT WAS FASTINGPERFORMED BY: [employer]6[address] [facility] [id number] Information: [id number] Baso (Absolute) 0.0 {x10E3/uL} (Normal) Range: 0.0-0.2 [...] copy of this report has been sent [phone].PATIENT WAS FASTINGPERFORMED BY: [facility] Aojshd7803 [facility] [id number] Alkaline Phosphatase, S 85 [iU]/L (Normal) Range: [...] copy of this report has been sent [phone].PATIENT WAS FASTINGPERFORMED BY: [facility] Glmvah6868 [facility] [id number] Ratio HDL Cholesterol 37 mg/dL (Abnormal) Comments: [...] copy of this report has been sent [phone].PATIENT WAS FASTINGPERFORMED BY: [facility] Wcgdns7859 [facility] [id number] Microalb/Creat Ratio 7.2 {mg/g_creat} (Normal) Range: 0.0-30.0 Creatinine, Urine 16.6 mg/dL (Normal) Range: 15.0-278.0 Microalbumin, Urine 1.2 ug/mL (Normal) Range: 0.0-17.0 :46 Prothrombin Time (PT) Comments: A courtesy copy of this report has been sent [phone].PATIENT WAS FASTINGPERFORMED BY: My Damn ChannelRiverview Medical CenterFyxglg1722 [facility] [id number] Prothrombin Time 28.1 {sec} Range: 8.7-11.5 (Abnormal) INR 2.9 (Abnormal) Range: 0.8-1.2 Comments: Reference interval is for non-anticoagulated patients..Suggested INR therapeutic range for Vitamin Kantagonist therapy:Standard Dose (moderate intensitytherapeutic range): 2.0 - 3.0Higher intensity therapeutic range 2.5 - 3.5 Vitamin D, 25-Hydroxy 27.8 ng/mL Comments: A courtesy copy of this report has been sent [phone].PATIENT WAS FASTINGPERFORMED BY: My Damn ChannelRiverview Medical CenterFfohdz7671 [facility] [id number] :46 (Abnormal) Range: 32.0-100.0 Comments: Recent studies consider the lower limit of 32.0 ng/mL to be athreshold for optimal health.Ye JARVIS. J Nutr. 2004;135(2):317-22. 48-Osv-598617:51 Comp. Metabolic Panel (14) Comments: PERFORMED BY: My Damn ChannelRiverview Medical CenterWxocso3176 [facility] [id number] A/G Ratio 1.3 (Normal) Range: 1.1-2.5 Albumin, [...] :51 Prothrombin Time (PT) Comments: PERFORMED BY: [employer] [id number] INR 2.3 (Abnormal) Range: 0.8-1.2 Comments: Reference interval is for non-anticoagulated patients. . Suggested INR therapeutic range for Vitamin K anta gonist therapy: Standard Dose (moderate intensity therapeutic range): 2.0 - 3.0 Higher intensity therapeutic range 2.5 - 3.5 Prothrombin Time 22.7 {sec} (Abnormal) Range: 8.7-11.5 :47 PT (Prothrobim Time) (91587) Comments: PATIENT NOT FASTINGClinical Information: [id number] PERFORMED BY: [employer] Aheadlin6370 [facility] [id number] INR 2.0 (Abnormal) Range: 0.8-1.2 Comments: Reference interval is for non-anticoagulated patients. . Suggested INR therapeutic range for Vitamin K anta gonist therapy: Standard Dose (moderate intensity therapeutic range): 2.0 - 3.0 Higher intensity therapeutic range 2.5 - 3.5 Prothrombin Time 19.7 {sec} (Abnormal) Range: 8.7-11.5 85-Fqb-374359:10 HgA1C , Office (85390) HgA1C , Office 6.3 % (Normal) Range: 4.6 - 7.1 64-Wgb-323827:10 Blood Glucose , Office (39373) Blood Glucose , Office 109 (Normal) 24-Ifg-809797:58 BILAT SCRN DIGITAL & CAD Radiology Report See Note (Normal) Comments: Exam Number: [id number] MAMMOGRAM, BILATERAL SCREENING DIGITAL AND CAD HISTORYRoutine [...] mammograms werealso examined with computer-aided detection software (ImageInternational [employer](INOR), [employer] Reported By: ELAINE NIEVES M.D. 0-Vyb-525894:22 PRO TIME INR 2.3 (Normal) PROTIME 26.1 s (Abnormal) Range: 9.1-11.7 76-Umi-837446:19 CHEST, PA AND LATERAL (MT) Radiology Report See Note (Normal) Comments: Exam Number: [id number] PA AND LATERAL CHEST Mild cardiomegaly appears unchanged from previous study of July. No active pulmonary or pleural disease is demonstrated. Thereis degenerative spu rring in the thoracic spine. IMPRESSION1. No evidence of active pulmonary disease. 2. Stable mild cardiomegaly. Reported By: YKUI RINCON M.D. :45 PRO TIME INR 2.4 [...] (Abnormal) Range: 9.1-11.7 :58 HgA1C , Office (60781) HgA1C , Office 5.7 % (Normal) Range: 4.6 - 7.1 :58 Blood Glucose , Office (82377) Blood Glucose , Office 119 (Normal) :39 PT/INR, Office (12281) INR 2.6 (Normal) :55 PT/INR, Office (99879) INR 2.5 (Normal) Comments: aw :01 HgA1C , Office (58878) HgA1C , Office 5.8 % (Normal) Range: 4.6 - 7.1 :01 Blood Glucose , Office (88450) Blood Glucose , Office 111 (Normal) :27 PT/INR, Office (93964) INR 2.2 (Normal) :09 PT/INR, Office (91299) INR 1.8 (Normal) :55 PT/INR, Office (57338) INR 3.3 (Normal) :51 PT/INR, Office (68488) INR 3.2 (Normal) Comments: aw 54-Ryi-118863:00 PT/INR, Office (89837) INR 2.9 (Normal) :14 PT/INR, Office (67773) INR 3.7 (Normal) :50 HgA1C , Office (09957) HgA1C , Office 5.8 % (Normal) Range: 4.6 - 7.1 :50 Blood Glucose , Office (44493) Blood Glucose , Office 119 (Normal) :03 CBC With Differential/Platelet Comments: PATIENT WAS FASTINGPERFORMED BY: [facility] Duwnnk0895 [facility] [id number] Baso (Absolute) 0.0 {x10E3/uL} (Normal) Range: 0.0-0.2 [...] 11.7-15.0 WBC 7.4 {x10E3/uL} (Normal) Range: 4.0-10.5 70-Frr-088260:03 Comp. Metabolic Panel (14) Comments: PATIENT WAS FASTINGPERFORMED BY: [facility] Szmsav7368 [facility] [id number] A/G Ratio 1.1 (Normal) Range: 1.1-2.5 Albumin, [...] Serum 106 mg/dL (Abnormal) Range: 65-99 If -Gabonese 46 mL/min/1.73 Comments: Note: Persistent reduction for [...] With LDL/HDL Comments: PATIENT WAS FASTINGPERFORMED BY: [address] [id number] Ratio Cholesterol, Total 129 mg/dL (Normal) Range: 100-199 HDL Cholesterol 34 mg/dL (Abnormal) Comments: According to ATP-III Guidelines, HDL-C >59 mg/dL is considered anegative risk factor for CHD. LDL Cholesterol Calc 66 mg/dL (Normal) Range: 0-99 LDL/HDL Ratio 1.9 {ratio_units} (Normal) Range: 0.0-3.2 Triglycerides 144 mg/dL (Normal) Range: 0-149 VLDL Cholesterol Maricruz 29 mg/dL (Normal) Range: 5-40 28-Ggq-111968:03 Microscopic Examination Comments: PATIENT WAS FASTINGPERFORMED BY: [address] [id number] Bacteria Few (Normal) Cast Type Hyaline casts (Normal) Casts Present {/lpf} (Abnormal) Crystal Type Amorphous Sediment (Normal) Crystals Present (Abnormal) Epithelial Cells (non 0-10 {/hpf} (Normal) Range: 0 - 10 renal) Mucus Threads Present (Normal) RBC 0-3 {/hpf} (Normal) Range: 0 - 3 WBC 0-5 {/hpf} (Normal) Range: 0 - 5 NTI Urine Tube (Dorsey) COMMNT (Normal) Comments: PATIENT WAS FASTINGPERFORMED BY: [facility] [place] [address] [id number] 1:03 Comments: .A urine culture transport was received with no test indicated. Iftesting is required on this specimen, please contact the [employer] Inquiry/Technical Services Department to obtain a Request forWritten Authorization Form. TSH 2.526 {uIU/mL} Comments: PATIENT WAS FASTINGPERFORMED BY: [facility]6[address] [facility] [id number] 1:03 (Normal) Range: 0.450-4.500 45-Olt-326738:03 Urinalysis, Routine Comments: PATIENT WAS FASTINGPERFORMED BY: LabCoRiverview Medical CenterDbdeqb7359 [facility] [facility] [id number] Appearance Clear (Normal) Bilirubin Negative (Normal) Glucose Negative (Normal) Ketones Negative (Normal) Microscopic Examination See below: (Normal) Nitrite, Urine Negative (Normal) Occult Blood Negative (Normal) pH 7.0 (Normal) Range: 5.0-7.5 Protein Negative (Normal) Specific [place] 1.008 (Normal) Range: 1.005-1.030 Urine-Color Yellow (Normal) Urobilinogen,Semi-Qn 0.2 mg/dL (Normal) Range: 0.0-1.9 WBC Esterase Trace (Abnormal) :29 PT/INR, Office ([id number]) INR 2.6 (Normal) Comments: aw 60-Czd-213667:16 HgA1C , Office (28584) HgA1C , Office 6.1 % (Normal) Range: 4.6 - 7.1 48-Pnq-846427:16 Blood Glucose , Office (84370) Blood Glucose , Office 186 (Normal) 75-Fzo-712860:16 PT/INR, Office (90866) INR 2.8 (Normal) :49 BILAT SCRN DIGITAL & CAD Radiology Report See Note (Normal) Comments: Exam Number: [id number] MAMMOGRAM, BILATERAL SCREENING DIGITAL AND CAD HISTORYRoutine [...] mammograms werealso examined with computer-aided detection software ([employer], [employer] Reported By: ELAINE NIEVES M.D. :37 PT/INR, Office ([id number]) INR 2.4 (Normal) :00 PT/INR, Office (21576) INR 1.9 (Normal) PT (PROTHROMBIN TIME) INR - 1.9 s (Normal) Range: 11.5-13.5 :18 DEXA BONE DENSITY/APPEND SKEL Radiology Report See Note (Normal) Comments: Exam Number: [id number] BONE DENSITOMETRY/APPENDICULAR SKELETON HISTORYOsteopenia. TECHNIQUE Bone densitometry [...] of osteopenia. Reported By: ELAINE NIEVES M.D. 27-Oof-684012:08 PT/INR, Office (67828) INR 2.0 (Normal) 73-Xxj-283240:08 HgA1C , Office (48774) HgA1C , Office 6.3 % (Normal) Range: 4.6 - 7.1 19-Whi-869881:08 Blood Glucose , Office (27409) Blood Glucose , Office 177 (Normal) :13 [...] (Normal) PROTIME 28.9 s (Abnormal) Range: 10.6-13.2 96-Fxj-653866:08 PRO TIME INR 3.4 (Normal) PROTIME 36.9 s (Abnormal) Range: 10.6-13.2 54-Pgb-159009:20 PRO TIME INR 2.1 (Normal) PROTIME 23.9 s (Abnormal) Range: 10.6-13.2 :39 PRO TIME INR 3.1 (Normal) PROTIME 33.5 s (Abnormal) Range: 10.6-13.2 :22 HgA1C , Office (11674) HgA1C , Office 6.1 % (Normal) Range: 4.6 - 7.1 :22 Blood Glucose , Office (15935) Blood Glucose , Office 105 (Normal) :34 [...] s (Abnormal) Range: 10.6-13.2 :35 PT/INR, Office (88352) INR 2.7 (Normal) :56 HgA1C , Office (63510) HgA1C , Office 5.8 % (Normal) Range: 4.6 - 7.1 :56 Blood Glucose , Office (48473) Blood Glucose , Office 103 (Normal) :28 PRO TIME INR 2.8 (Normal) PROTIME 30.7 s (Abnormal) Range: 10.6-13.2 :55 PRO TIME INR 2.1 (Normal) PROTIME 24.0 s (Abnormal) Range: 10.6-13.2 :05 PT/INR, Office (11344) INR 2.5 (Normal) :05 Blood Glucose , Office (43564) Blood Glucose , Office 100 (Normal) :05 HgA1C , Office (74799) HgA1C , Office 6.2 % (Normal) Range: 4.6 - 7.1 :10 [facility] DIGITAL & CAD Radiology Report See Note (Normal) Comments: Exam Number: [id number] DIGITAL SCREENING MAMMOGRAPHY WITH CAD COMPARISON STUDYDated [...] werealso examined with computer- aided detection software ([employer].). Reported By: MAO KURTZ M.D. :49 PRO TIME INR 2.5 (Normal) PROTIME 27.8 s (Abnormal) Range: 10.6-13.2 :13 PRO TIME INR 2.7 (Normal) PROTIME 29.7 s (Abnormal) Range: 10.6-13.2 :14 PRO TIME INR 2.2 (Normal) PROTIME 24.3 s (Abnormal) Range: 10.6-13.2 :26 PT/INR, Office (59334) INR 2.5 (Normal) PT (PROTHROMBIN TIME) INR 2.5 s (Normal) Range: 11.5-13.5 :25 HgA1C , Office (22068) HgA1C , Office 6.0 % (Normal) Range: 4.6 - 7.1 :25 Blood Glucose , Office (41119) Blood Glucose , Office 108 (Normal) :20 [...] Note Reference Interval Change :22 PT/INR, Office (90300) Comments: done- same dose recheck in 2 weeks-- alternate 4/5 INR 2.3 (Normal) :22 HgA1C , Office (43544) Comments: done HgA1C , Office 5.9 % (Normal) Range: 4.6 - 7.1 :21 Blood Glucose , Office (65256) Comments: done Blood Glucose , Office 101 [...] s (Abnormal) Range: 11.7-13.3 :50 PT/INR, Office (38391) INR 1.9 (Normal) PT (PROTHROMBIN TIME) 16.9 s (Abnormal) Range: 11.5-13.5 :50 HgA1C , Office (54626) HgA1C , Office 6.0 % (Normal) Range: 4.6 - 7.1 :50 Blood Glucose , Office (40967) Blood Glucose , Office 95 (Normal) :59 [...] (Abnormal) Range: 11.7-13.3 :40 HgA1C , Office (42887) HgA1C , Office 5.7 % (Normal) Range: 4.6 - 7.1 :40 Blood Glucose , Office (55171) Blood Glucose , Office 115 (Normal) Plan of Care Name Dates Details Instructions Anasarca : Follow up in 3 months Indication: Anasarca Iron deficiency anemia : Reviewed [employer] Consultant Letter Indication: Iron deficiency anemia Valvular disease : Reviewed [employer] Consultant Letter Indication: Valvular disease Lower GI bleed : Reviewed Lab Indication: Lower GI bleed Lower GI bleed : Reviewed [employer] Consultant Letter Indication: Lower GI bleed Essential hypertension with goal blood pressure less than 130/80 : Reviewed [employer] Consultant Letter Indication: Essential hypertension with goal blood [...] : Follow up in 2 weeks with [facility] SaturdayNovember 20 Indication: Cough Cough : Follow [...] : FOLLOW UP IN 1 WEEK with [facility] Indication: Atrial fibrillation Mixed dyslipidemia : Diet, Exercise, and Wt loss Indication: Mixed dyslipidemia Cough : MDI Education Indication: Cough Mixed dyslipidemia : FOLLOW UP IN 2 MONTHS Indication: Mixed dyslipidemia FOLLOW UP IN 3 MONTHS Planned Observations Metabolic Panel, Comprehensive (30397)Indication: CKD (chronic kidney disease), stage III On: :09 Request CBC & PLATELETS (AUTO) (78515)Indication: Lower GI bleed On: :08 Request PT (PROTHROMBIN TIME) (63602)Indication: Lower GI bleed On: :08 Request Metabolic Panel, Basic (74295)Indication: Shortness of breath On: :58 Request CBC, Platelets & Auto Diff (64684)Indication: Shortness of breath On: :55 Request BNTP (40200)Indication: Shortness of breath On: :55 Request BNTP (32408)Indication: Acute CHF On: 0-Qsk-683094:18 Request METABOLIC PANEL, COMPREHENSIVE (43673)Indication: Acute CHF On: 1-Jts-941284:18 Request CBC & PLATELETS (AUTO) ([id number])Indication: Acute CHF On: 8-Gsv-221127:18 Request FERRITIN (59498)Indication: Iron deficiency anemia On: 5-Yen-500940:22 Request IRON BINDING CAPACITY (TIBC) (93011)Indication: Iron deficiency anemia On: 4-Unu-289070:22 Request IRON (77049)Indication: Iron deficiency anemia On: 1-Zez-507541:22 Request IRON & TOTAL IRON BINDING CAPACITY ([id number])Indication: Iron deficiency anemia On: 2-Vtg-707490:22 Request LIPID PANEL (32360)Indication: Diabetes mellitus type II, controlled On: 1-Xsm-374293:20 Request Metabolic Panel, Comprehensive (39741)Indication: Acute renal failure On: 1-Pnj-882072:19 Request PT (Prothrobim Time) (90941)Indication: Walking pneumonia On: 63-Lym-037872:20 Request PT (PROTHROMBIN TIME) (54987)Indication: Atrial fibrillation On: 03-May-2017 Request Comments: Standing order Ferritin (43735)Indication: Anemia, unspecified On: 57-Qqm-912788:45 Request Iron (62732)Indication: Anemia, unspecified On: :45 Request CBC WITH MANUAL DIFF (51052)Indication: Anemia, unspecified On: :45 Request CBC, Platelets & Auto Diff (63669)Indication: Lower GI bleed On: :40 Request Comments: Week of February 25, give lab slip HgA1C , Office (19666)Indication: Diabetes mellitus type II, controlled On: : Request Blood Glucose , Office (08544)Indication: Diabetes mellitus type II, controlled On: :26 Request FERRITIN (82731)Indication: Anemia, unspecified On: :26 Request HGB (HEMOGLOBIN) (09582)Indication: Lower GI bleed On: :44 Request MAGNESIUM (72782)Indication: Acute renal failure On: :11 Request Comments: to be done around January 14 Metabolic Panel, Comprehensive (99165)Indication: Acute renal failure On: :06 Request Comments: to be done at [place] 01-14 CBC & PLATELETS (AUTO) ([id number])Indication: Acute renal failure On: :06 Request Comments: to be done at [place] on 01-14 URINE SIOBHAN CULTURE-IDENTIFICATN (48216)Indication: Acute renal failure On: 0-Aqy-472379:55 Request URINALYSIS (47900)Indication: Acute renal failure On: :51 Request Comments: December 25 Renal function Panel (24204)Indication: Acute renal failure On: :51 Request Comments: December 25 METABOLIC PANEL, BASIC (90159)Indication: Abnormal blood finding On: :00 Request CBC, PLATELETS & AUT DIFF (48061)Indication: Abnormal blood finding On: :00 Request Metabolic Panel, Basic (40172)Indication: Abnormal blood finding On: 4-Lss-911437:01 Request Comments: stat CBC WITH MANUAL DIFF (41668)Indication: Abnormal blood finding On: :17 Request CBC, Platelets & Auto Diff (71463)Indication: Iron deficiency anemia On: 11-Xzd-346589:15 Request PT (PROTHROMBIN TIME) ([id number])Indication: Atrial fibrillation On: 0-Akt-679317:36 Request Comments: standing order FERRITIN (48022)Indication: Restless leg syndrome On: :32 Request IRON & TOTAL IRON BINDING CAPACITY (65807)Indication: Restless leg syndrome On: :32 Request MICROALBUMIN: CREATININE RATIO (29743) AND (53510)Indication: Restless leg syndrome On: :32 Request VITAMIN B12 AND FOLATES (29964)Indication: Restless leg syndrome On: : Request CALCIFEDIOL (39234)Indication: Restless leg syndrome On: : Request TSH (THYROID STIMULATING HORMONE) ([id number])Indication: Restless leg syndrome On: :32 Request LIPID PANEL (81259)Indication: Mixed dyslipidemia On: :32 Request METABOLIC PANEL, COMPREHENSIVE (00782)Indication: BMI 45.0-49.9, adult On: :32 Request CBC, PLATELETS & AUT DIFF (44887)Indication: BMI 45.0-49.9, adult On: :32 Request FERRITIN (63680)Indication: Iron deficiency anemia On: :20 Request IRON & TOTAL IRON BINDING CAPACITY (80324)Indication: Iron deficiency anemia On: :20 Request LIPID PANEL (11464)Indication: Mixed dyslipidemia On: :20 Request TSH (THYROID STIMULATING HORMONE) ([id number])Indication: Mild vitamin D deficiency On: :19 Request VITAMIN B12 AND FOLATES (30907)Indication: Mild vitamin D deficiency On: :19 Request CALCIFEDIOL (75166)Indication: Mild vitamin D deficiency On: :19 Request METABOLIC PANEL, COMPREHENSIVE (48289)Indication: Diabetes mellitus type 2, uncontrolled, without complications On: :19 Request CBC, PLATELETS & AUT DIFF (69048)Indication: Diabetes mellitus type 2, uncontrolled, without complications On: Request LDH (LD) (LACTATE DEHYDROGENASE) (50795)Indication: Anemia, unspecified On: Request FOLIC ACID SERUM (98933)Indication: Anemia, unspecified On: Request SPEP (08511)Indication: Anemia, unspecified On: Request UPEP (41461)Indication: Anemia, unspecified On: Request FERRITIN (00222)Indication: Anemia, unspecified On: Request IRON (57970)Indication: Anemia, unspecified On: Request VITAMIN B-12 (CYANOCOBALAMIN) (73436)Indication: Anemia, unspecified On: Request TLBIC-AZOASVDXIDX-UAAPI (60645)Indication: Other chronic nonalcoholic liver disease On: Request CBC with auto diff ([id number])Indication: Essential hypertension with goal blood pressure less than 130/80 On: Request HGB A1C (21947)Indication: Diabetes mellitus type II, controlled On: Request MICROALBUMIN: CREATININE RATIO (75490) AND (56303)Indication: Diabetes mellitus type II, controlled On: Request LIPID PANEL (11367)Indication: Mixed dyslipidemia On: Request Metabolic Panel, Basic (39077)Indication: Diabetes mellitus type 2, uncontrolled, without complications On: Request MICROALBUMIN: CREATININE RATIO (38451) AND (63658)Indication: Diabetes mellitus type II, controlled On: : Request METABOLIC PANEL, COMPREHENSIVE (75322)Indication: Diabetes mellitus type II, controlled On: : Request LIPID PANEL (08637)Indication: Mixed dyslipidemia On: Request CBC (AUTO) (43072)Indication: Anemia, unspecified On: 59 Request Vitamin D Hydroxy (17754)Indication: Mild vitamin D deficiency On: 90-Otm-22554:59 Request GHQUB-NLZLXLMNKKU-BNBNN (49413)Indication: Other chronic nonalcoholic liver disease On: :57 Request CBC with auto diff (62580)Indication: Pulmonary hypertension On: :50 Request Hemoglobin Glyclated (HGB A1C) (93573)Indication: Diabetes mellitus type II, controlled On: :50 Request METABOLIC PANEL, COMPREHENSIVE (65400)Indication: Essential hypertension with goal blood pressure less than 130/80 On: :49 Request LIPID PANEL (90817)Indication: Mixed dyslipidemia On: :49 Request LIPID PANEL (70434)Indication: Diabetes mellitus type II, controlled On: :49 Request HEPATIC FUNCTION PANEL (57392)Indication: Diabetes mellitus type II, controlled On: :49 Request Vitamin D Hydroxy (81745)Indication: Mild vitamin D deficiency On: :30 Request METABOLIC PANEL, COMPREHENSIVE (55738)Indication: Diabetes mellitus type II, controlled On: :30 Request LIPID PANEL (21378)Indication: Mixed dyslipidemia On: :30 Request FLOYS-NUAHVPZVQUP-MJGBT (75604)Indication: Other chronic nonalcoholic liver disease On: :29 Request CBC with auto diff (17861)Indication: Anemia, unspecified On: :29 Request MICROALBUMIN: CREATININE RATIO (96416) AND (42338)Indication: Diabetes mellitus type II, controlled On: :24 Request METABOLIC PANEL, COMPREHENSIVE (33254)Indication: Essential hypertension with goal blood pressure less than 130/80 On: :24 Request Vitamin D Hydroxy (08692)Indication: Mild vitamin D deficiency On: :24 Request LIPID PANEL (59806)Indication: Mixed dyslipidemia On: :24 Request LDH (LD) (LACTATE DEHYDROGENASE) (54885)Indication: Anemia, unspecified On: :24 Request VITAMIN B-12 (CYANOCOBALAMIN) (93167)Indication: Anemia, unspecified On: :24 Request IRON BINDING CAPACITY (TIBC) (97546)Indication: Anemia, unspecified On: :24 Request FERRITIN (29694)Indication: Anemia, unspecified On: :24 Request IRON ([id number])Indication: Anemia, unspecified On: :24 Request CBC W/AUTO DIFF WBC (79260)Indication: Anemia, unspecified On: :24 Request LIPID PANEL (98170)Indication: Mixed dyslipidemia On: : Request METABOLIC PANEL, COMPREHENSIVE (54323)Indication: Essential hypertension with goal blood pressure less than 130/80 On: :02 Request CBC (AUTO) (22702)Indication: Anemia, unspecified On: : Request Vitamin D Hydroxy (75034)Indication: Mild vitamin D deficiency On: : Request MKLTC-FSYOPOWGCRG-NDKSQ ([id number])Indication: Other chronic nonalcoholic liver disease On: : Request PTT (Activated Partial Thromboplastin Time) (71709)Indication: Other chronic nonalcoholic liver disease On: : Request PT (Prothrobim Time) (03843)Indication: Other chronic nonalcoholic liver disease On: : Request PT (Prothrobim Time) (83811)Indication: Atrial fibrillation On: :28 Request Comments: STANDING ORDER CBC WITH MANUAL DIFF (75666)Indication: Anemia, unspecified On: :53 Request LIPID PANEL (87009)Indication: Mixed dyslipidemia On: :53 Request MICROALBUMIN: CREATININE RATIO (60093) AND (24286)Indication: Diabetes mellitus type II, controlled On: 93-Nxv-853831:52 Request METABOLIC PANEL, COMPREHENSIVE (30000)Indication: Diabetes mellitus type II, controlled On: 21-Ylx-938160:52 Request Vitamin D Hydroxy (25606)Indication: Mild vitamin D deficiency On: :52 Request Vitamin D Hydroxy (72490)Indication: Mild vitamin D deficiency On: :13 Request LIPID PANEL (63505)Indication: Mixed dyslipidemia On: :12 Request URIC ACID BLOOD (77309)Indication: Gout On: :12 Request IODFE-UHSBNEBXFWL-GSSLY (74147)Indication: Other chronic nonalcoholic liver disease On: :12 Request PTT (Activated Partial Thromboplastin Time) ([id number])Indication: Other chronic nonalcoholic liver disease On: :12 Request METABOLIC PANEL, COMPREHENSIVE (26764)Indication: Essential hypertension with goal blood pressure less than 130/80 On: :12 Request CBC WITH MANUAL DIFF ([id number])Indication: Anemia, unspecified On: 18-Png-591728:11 Request PT (Prothrobim Time) ([id number])Indication: Atrial fibrillation On: 45-Emh-987515:59 Request Comments: STANDING ORDER HEPATIC FUNCTION PANEL (27160)Indication: Mixed dyslipidemia On: 71-Rvo-764578:56 Request CBC WITH MANUAL DIFF (80146)Indication: Gout On: :08 Request LIPID PANEL (70744)Indication: Mixed dyslipidemia On: :08 Request METABOLIC PANEL, COMPREHENSIVE (66323)Indication: Diabetes mellitus type II, controlled On: 85-Etb-623478:08 Request MICROALBUMIN: CREATININE RATIO (87414) AND (40696)Indication: Diabetes mellitus type II, controlled On: :08 Request Metabolic Panel, Basic (18789)Indication: Hyperkalemia On: 98-Mla-483040:40 Request PT (Prothrobim Time) (69604)Indication: Atrial fibrillation On: 9-Fly-082515:35 Request LIPID PANEL (81406)Indication: Mixed dyslipidemia On: 40-Apt-507196:34 Request METABOLIC PANEL, COMPREHENSIVE (23460)Indication: Diabetes mellitus type II, controlled On: 18-Adj-728120:33 Request MICROALBUMIN: CREATININE RATIO (92549) AND ([id number])Indication: Diabetes mellitus type II, controlled On: :33 Request CBC WITH MANUAL DIFF (41702)Indication: Anemia, unspecified On: 94-Upp-420902:33 Request CBC WITH MANUAL DIFF (53040)Indication: Anemia, unspecified On: 89-Egb-898298:07 Request METABOLIC PANEL, COMPREHENSIVE (94525)Indication: Renal insufficiency (Renamed from Renal function impairment) On: :06 Request MICROALBUMIN: CREATININE RATIO (23506) AND (41506)Indication: Diabetes mellitus type II, controlled On: :06 Request LIPID PANEL (68218)Indication: Mixed dyslipidemia On: 81-Kdg-142689:06 Request SILQR-SLHKOXZMZRU-YLWSO (00702)Indication: Other chronic nonalcoholic liver disease On: :06 Request Vitamin D Hydroxy (93981)Indication: Mild vitamin D deficiency On: :05 Request Vitamin D Hydroxy (73132)Indication: Mild vitamin D deficiency On: 54-Iys-680161:08 Request FLURESCNT ANTIB SCRN EA (58061) celiac profileIndication: Anemia, unspecified On: :08 Request IGA/IGD/IGG/IGM-EACH (94523) celiac profileIndication: Anemia, unspecified On: :08 Request IMMUNOASSAY, ANALYTE (NON-INFECT) (89354) celiac profileIndication: Anemia, unspecified On: 59-Rtu-194173:08 Request METABOLIC PANEL, COMPREHENSIVE (68592)Indication: Diabetes mellitus type 2, uncontrolled, without complications On: 82-Yxg-745502:06 Request CBC with manual diff (70903)Indication: Anemia, unspecified On: 20-Rcv-453688:49 Request Iron Binding Capacity (TIBC) (22291)Indication: Anemia, unspecified On: 32-Foa-985147:49 Request Iron (01021)Indication: Anemia, unspecified On: :49 Request Ferritin (72785)Indication: Anemia, unspecified On: 23-Lyn-253762:49 Request Metabolic Panel, Basic (49383)Indication: Abnormal blood chemistry On: :09 Request LIPID PANEL (81287)Indication: Mixed dyslipidemia On: 00-Jia-167665:02 Request Metabolic Panel, Basic (08973)Indication: Renal insufficiency (Renamed from Renal function impairment) On: 91-Oun-010191:01 Request IRON ([id number])Indication: Anemia, unspecified On: 33-Vgx-504028:32 Request Vitamin D Hydroxy (20930)Indication: Mild vitamin D deficiency On: 15-Gms-063537:49 Request LIPID PANEL (98593)Indication: Mixed dyslipidemia On: 49-Uzn-415933:48 Request CBC WITH MANUAL DIFF (97156)Indication: Anemia, unspecified On: 22-Srv-313737:48 Request METABOLIC PANEL, COMPREHENSIVE (10165)Indication: Abnormal glucose tolerance test On: 48-Orh-821121:48 Request MICROALBUMIN: CREATININE RATIO (75526) AND (80932)Indication: Abnormal glucose tolerance test On: :48 Request CALCIFEDIOL (39703)Indication: Mild vitamin D deficiency On: 0-Esv-221487:16 Request LIPID PANEL (73335)Indication: Mixed dyslipidemia On: 0-Wga-269120:16 Request METABOLIC PANEL, COMPREHENSIVE (85124)Indication: Mixed dyslipidemia On: 4-Hoo-684443:16 Request URINALYSIS (62290)Indication: Essential hypertension with goal blood pressure less than 130/80 On: 2-Mzj-646106:16 Request CBC with manual diff (19756)Indication: Essential hypertension with goal blood pressure less than 130/80 On: 9-Wpp-051296:16 Request LDH (LD) (LACTATE DEHYDROGENASE) (47539)Indication: Essential hypertension with goal blood pressure less than 130/80 On: 4-Pjy-675475:16 Request Iron (03325)Indication: Essential hypertension with goal blood pressure less than 130/80 On: 3-Sow-209733:16 Request Ferritin (50352)Indication: Essential hypertension with goal blood pressure less than 130/80 On: 1-Dma-923691:16 Request URIC ACID BLOOD (03424)Indication: Gout On: 31-Uxy-825995:49 Request LDH (LD) (LACTATE DEHYDROGENASE) (01498)Indication: Anemia, unspecified On: 61-Whp-828318:26 Request URIC ACID BLOOD ([id number])Indication: Gout On: 3-Csa-386088:19 Request URIC ACID BLOOD (24498)Indication: Gout On: 7-Wkq-473454:16 Request TSH (THYROID STIMULATING HORMONE) (10459)Indication: Mixed dyslipidemia On: :29 Request URINALYSIS (71751)Indication: Mixed dyslipidemia On: 60-Qso-099797:28 Request LIPID PANEL (35963)Indication: Mixed dyslipidemia On: :27 Request CBC, PLATELETS & AUT DIFF (03003)Indication: Mixed dyslipidemia On: :18 Request METABOLIC PANEL, COMPREHENSIVE (58237)Indication: Mixed dyslipidemia On: :17 Request CALCIFEDIOL (62596)Indication: Mild vitamin D deficiency On: :16 Request HgA1C , Office (84646)Indication: Abnormal glucose tolerance test On: :59 Request METABOLIC PANEL, BASIC (24831)Indication: Atrial fibrillation On: :30 Request METABOLIC PANEL, BASIC (35535)Indication: Atrial fibrillation On: :59 Request CBC WITH MANUAL DIFF (85718)Indication: Atrial fibrillation On: :11 Request METABOLIC PANEL, COMPREHENSIVE (20267)Indication: Other chronic nonalcoholic liver disease On: :10 Request LIPID PANEL (95201)Indication: Mixed dyslipidemia On: :10 Request LIPID PANEL (42473)Indication: Mixed dyslipidemia On: :11 Request CBC WITH MANUAL DIFF ([id number])Indication: Abnormal glucose tolerance test On: 1-Rxb-045560:11 Request MICROALBUMIN: CREATININE RATIO (40670) AND (31339)Indication: Abnormal glucose tolerance test On: 6-Fkw-961147:11 Request Vitamin D Hydroxy (89913)Indication: Mild vitamin D deficiency On: :11 Request METABOLIC PANEL, COMPREHENSIVE (29915)Indication: Other chronic nonalcoholic liver disease On: :10 Request METABOLIC PANEL, COMPREHENSIVE (61557)Indication: Abnormal glucose tolerance test On: 53-Vea-050682:10 Request MICROALBUMIN: CREATININE RATIO (19673) AND (64790)Indication: Abnormal glucose tolerance test On: 77-Ulu-037180:10 Request LIPID PANEL (58766)Indication: Mixed dyslipidemia On: 99-Kqd-121273:10 Request Vitamin D Hydroxy (56159)Indication: Osteopenia On: 55-Xio-652902:10 Request LIPID PANEL (70945)Indication: Mixed dyslipidemia On: 49-Mws-503104:48 Request Vitamin D Hydroxy (20931)Indication: Mild vitamin D deficiency On: :48 Request CBC WITH MANUAL DIFF (90304)Indication: Abnormal glucose tolerance test On: :47 Request METABOLIC PANEL, COMPREHENSIVE (68446)Indication: Abnormal glucose tolerance test On: 42-Tlb-305111:47 Request LIPID PANEL (34567)Indication: Mixed dyslipidemia On: 98-Ztv-502742:39 Request METABOLIC PANEL, COMPREHENSIVE (48326)Indication: Hypercalcemia On: 37-Mty-302740:38 Request Vitamin D Hydroxy (39214)Indication: Mild vitamin D deficiency On: :38 Request CBC (AUTO) (89612)Indication: Abnormal glucose tolerance test On: 29-Pkz-654020:28 Request Vitamin D Hydroxy (43010)Indication: Osteopenia On: :28 Request CBC WITH MANUAL DIFF ([id number])Indication: Essential hypertension with goal blood pressure less than 130/80 On: 32-Ftl-297717:28 Request MICROALBUMIN: CREATININE RATIO (93068) AND (20709)Indication: Abnormal glucose tolerance test On: :28 Request METABOLIC PANEL, COMPREHENSIVE (16412)Indication: Hypercalcemia On: 99-Vve-336338:27 Request Vitamin D Hydroxy (11145)Indication: Osteopenia On: 78-Psj-484303:34 Request Metabolic Panel, Basic (49381)Indication: Hyperkalemia On: 90-Rhe-196014:04 Request Comments: 1 week LIPID PANEL (08343)Indication: Mixed dyslipidemia On: 55-Irw-658850:34 Request TSH (43826)Indication: Essential hypertension with goal blood pressure less than 130/80 On: 52-Vbn-459730:34 Request CBC WITH MANUAL DIFF (06367)Indication: Essential hypertension with goal blood pressure less than 130/80 On: 78-Vmm-702516:34 Request METABOLIC PANEL, COMPREHENSIVE (82518)Indication: Abnormal glucose tolerance test On: 70-Dqh-445518:34 Request PT/INR, Office (03346)Indication: Atrial fibrillation On: :55 Request PT/INR, Office (16034)Indication: Atrial fibrillation On: 4-Bzg-109470:36 Request PT (Prothrobim Time) (35418)Indication: Atrial fibrillation On: :58 Request METABOLIC PANEL, COMPREHENSIVE (99159)Indication: Essential hypertension with goal blood pressure less than 130/80 On: :09 Request CBC WITH MANUAL DIFF (41716)Indication: Essential hypertension with goal blood pressure less than 130/80 On: 36-Noq-364234:09 Request MICROALBUMIN: CREATININE RATIO (19742) AND (47928)Indication: Abnormal glucose tolerance test On: :09 Request HEPATIC FUNCTION PANEL (52874) On: 70-Wmz-438491:07 Request LIPID PANEL ([id number])Indication: Mixed dyslipidemia On: :07 Request PT/INR, Office ([id number])Indication: Atrial fibrillation On: 47-Wgw-573830:19 Request Comments: done>Wf. PT/INR, Office ([id number])Indication: Atrial fibrillation On: 26-Hos-584500:30 Request METABOLIC PANEL, COMPREHENSIVE ([id number])Indication: Essential hypertension with goal blood pressure less than 130/80 On: 42-Xbd-072273:34 Request CBC WITH MANUAL DIFF ([id number])Indication: Essential hypertension with goal blood pressure less than 130/80 On: 12-Crw-339062:34 Request HEPATIC FUNCTION PANEL ([id number])Indication: Mixed dyslipidemia On: 89-Kio-665148:34 Request LIPID PANEL ([id number])Indication: Mixed dyslipidemia On: 09-Yue-299737:34 Request LIPID PANEL ([id number])Indication: Mixed dyslipidemia On: 57-Gag-358866:51 Request URINALYSIS W/O MICRO ([id number])Indication: Essential hypertension with goal blood pressure less than 130/80 On: 05-Xoz-122432:51 Request TSH ([id number])Indication: Essential hypertension with goal blood pressure less than 130/80 On: 42-Qnv-914070:51 Request CBC WITH MANUAL DIFF ([id number])Indication: Essential hypertension with goal blood pressure less than 130/80 On: 01-Vhn-296183:51 Request METABOLIC PANEL, COMPREHENSIVE ([id number])Indication: Essential hypertension with goal blood pressure less than 130/80 On: 34-Zyb-689288:51 Request TSH ([id number])Indication: Essential hypertension with goal blood pressure less than 130/80 On: 33-Ukl-461729:44 Request METABOLIC PANEL, COMPREHENSIVE ([id number])Indication: Essential hypertension with goal blood pressure less than 130/80 On: 12-Wcu-381538:44 Request CBC WITH MANUAL DIFF ([id number])Indication: Essential hypertension with goal blood pressure less than 130/80 On: 52-Ptq-383685:44 Request MICROALBUMIN URINE QUANT ([id number])Indication: Abnormal glucose tolerance test On: :59 Request METABOLIC PANEL, COMPREHENSIVE ([id number])Indication: Abnormal glucose tolerance test On: :57 Request CBC WITH MANUAL DIFF ([id number])Indication: Abnormal glucose tolerance test On: :57 Request LIPID PANEL ([id number])Indication: Mixed dyslipidemia On: :56 Request HEPATIC FUNCTION PANEL ([id number])Indication: Mixed dyslipidemia On: :56 Request HEPATIC FUNCTION PANEL ([id number])Indication: Mixed dyslipidemia On: :11 Request LIPID PANEL ([id number])Indication: Mixed dyslipidemia On: 39-Isb-988567:11 Request Planned Encounters Medical; 3 Month FU - On: 10-Sep-2018 9:15 [facility] Sara Swartz CNP, CNP, Mary E Planned Procedures Aerosol Treatment ([id number])By: On: 08-Aug-2017 Intent Kaykay Layne Comments: Exp wheeze still heard after aerosol treatment-better air exchange though. Solu- Medrol Injection, 125mg On: 08-Aug-2017 Intent ([id number])By: Kaykay Layne Comments: lot [id number] mgleft gm IMas, SITE LEADER Rocephin Injection, 2 Gram On: 06-Aug-2017 Intent ([id number])By: Kaykay Layne CHEST XRAY, PA & LATERAL On: 06-Aug-2017 Intent ([id number])By: Kaykay Layne Aerosol Treatment ([id number])By: On: 06-Aug-2017 Intent Kaykay Layne RIGHT BREAST ULTRASOUND ([id number])By: On: 26-Jul-2017 Intent Sara Swartz CNP, CNP, Mary E SCREENING DIGITAL TOMOSYNTHESIS OF On: 20-May-2017 Intent BREAST ([id number])By: Sara Swartz CNP, CNP, Mary E Flu Vaccine (Quadrivalent) On: 20-May-2017 Intent 74611Bo: Sara Swartz CNP Comments: Lot:[id number]:11/2017Dose:0.5mLRoute:IMSite:L DltdGiven By:mlVIS signed Sara HENRY MAMMOGRAM, SCREENING, BOTH BREAST On: 26-Jun-2016 Intent ([id number])By: Jacinto Sheehan MD DEXA SCAN AXIAL SKELETON On: 27-Mar-2016 Intent ([id number])By: Jacinto Sheehan MD Ultrasound - LiverBy: Jarad RUIZ, On: 19-Dec-2015 Intent Brittany Caro PNEUM VAC ADLT/IMUMNOSPR, On: 05-Jul-2015 Intent SBC/INTRM ([id number])By: Raghu Downing Comments: PNEUMOlot:[id number]:1*13*17site:LT deltoidroute:IMdose:.5mlDEMICK, SMA MAMMOGRAM, SCREENING, BOTH BREAST On: 15-Jun-2015 Intent ([id number])By: Brittany Abraham DO Cartoid DopplerBy: Brittany Abraham DO On: 15-Jun-2015 Intent A Flu Vaccine (Quadrivalent) On: 15-Jun-2015 Intent [id number]: Brittany Abraham DO Comments: Lot #:[id number] date: 01/2016Amount given:prefilled syringeSite given:L Dltd, IMGiven by: AYAKA Morris and ABN signed ADMINISTRATION OF INFLUENZA VIRUS On: 15-Jun-2015 Intent VACCINE ([id number])By: Brittany Abraham DO Overnight Pulse OX ([id number])By: Jarad On: 18-Mar-2015 Intent Brittany RUIZ PFT - CompleteBy: Brittany Abraham DO On: 18-Mar-2015 Intent Radiology - Knee - Right - Weight On: 28-Jun-2014 Intent BearingBy: Brittany Abraham DO Radiology - Knee - Left - Weight On: 28-Jun-2014 Intent BearingBy: Brittany Abraham DO Prevnar 13 ([id number])By: Jarad RUIZ, On: 08-Jun-2014 Intent Brittany Caro Comments: [id number] arm, IMMegan MAMMOGRAM, SCREENING, BOTH BREAST On: 08-Jun-2014 Intent ([id number])By: Brittany Abraham DO Comments: end jul Ultrasound - LiverBy: Jarad RUIZ, On: 08-Dec-2013 Intent Brittany Caro Inhaler Demonstration ([id number])By: On: 20-Nov-2013 Intent Tia HENRY, Magaly Tia HENRY, Sara Mc Aerosol Treatment ([id number])By: Tia On: 20-Nov-2013 Intent Sara HENRY E Sara Swartz CNP Radiology - ChestBy: Miltongordo CARL, On: 04-Nov-2013 Intent Sara Bear CNP Comments: To be Done satNovember 18 Aerosol Treatment ([id number])By: Tia On: 03-Nov-2013 Intent Sara HENRY CNP, Mary E Radiology - ChestBy: Tia HENRY, On: 03-Nov-2013 Intent [facility]NP [facility] E[facility] On: 08-Sep-2013 Intent ([id number])By: Ariane Hartman MAMMOGRAM, SCREENING, BOTH BREASTS On: 01-May-2013 Intent ([id number])By: Brittany Abraham DO Comments: jul DXA, BONE DENSITY, AXIAL SKELETON On: 01-May-2013 Intent ([id number])By: Brittany Abraham DO Comments: jul FLU VAC, SPLIT, >3 YEARS, On: 01-May-2013 Intent INTRAMUSC ([id number])By: Minnie, Comments: Lot #:[id number] date:mount given:0.5mlRoute: IMSite given: L dltdVIS and ABN signedGiven by: LILY Payton ADMINISTRATION OF INFLUENZA VIRUS On: 01-May-2013 Intent VACCINE (G0008)By: Ariane Hartman Eprescribed prescriptions On: 01-May-2013 Intent ([id number])By: Ariane Hartman Eprescribed prescriptions On: 30-Jan-2013 Intent ([id number])By: Ariane Hartman Eprescribed prescriptions On: 31-Oct-2012 Intent ([id number])By: Ariane Hartman Eprescribed prescriptions On: 28-Jul-2012 Intent ([id number])By: Ariane Hartman MAMMOGRAM, SCREENING, BOTH BREASTS On: 07-Jul-2012 Intent ([id number])By: Brittany Abraham DO Eprescribed prescriptions On: 07-Apr-2012 Intent (G8553)By: Ariane Hartman TDAP VACCINE >7 IM ([id number])By: On: 03-Dec-2011 Intent Ariane Hartman Comments: Lot:[id number]:07/12/13Amt:prefilledRoute:IMSite:left deltGiven By: THERESA Hinson Doppler Ultrasound OtherBy: Fast On: 03-Dec-2011 Intent Brittany RUIZ Comments: both legs stat call wet read Breast Screening - BilateralBy: On: 08-Jun-2011 Intent Brittany Abraham DO FLU VAC, SPLIT, >3 YEARS, On: 05-Jun-2011 Intent INTRAMUSC (41135)By: Minnie, Comments: Lot #:[id number] date:mount given:0.5mlRoute: IMSite given:left deltGiven by: LILY Payton ADMINISTRATION OF INFLUENZA VIRUS On: 05-Jun-2011 Intent VACCINE (G0008)By: Ariane Hartman Eprescribed prescriptions On: 14-Feb-2011 Intent (G8553)By: Brittany Abraham DO IMMUNIZ ADMNIN, 1 VAC, SNGL/COMBO On: 30-Nov-2010 Intent (06029)By: Mona Merritt LPN Comments: Lot #[id number]-01/02/12Site- left arnDose 0.7given by:Eveline ZOSTER VACC, [place] (41257)By: René On: 30-Nov-2010 Intent Mona CARDENAS ADMINISTRATION OF INFLUENZA VIRUS On: 23-May-2010 Intent VACCINE (G0008)By: Ailyn Jones RN FLU VAC, SPLIT, >3 YEARS, On: 23-May-2010 Intent INTRAMUSC ([id number])By: Robert ROYAL, Comments: Lot #: [id number] date: mount given: 0.5 mlRoute: IMSite given: left deltoidGiven by: LELE Nguyen DXA, BONE DENSITY, AXIAL SKELETON On: 09-May-2010 Intent ([id number])By: Brittany Abraham DO Comments: nov MAMMOGRAM, SCREENING, BOTH BREASTS On: 09-May-2010 Intent ([id number])By: Brittany Abraham DO Comments: end jun Doppler Ultrasound OtherBy: [place] On: 27-Dec-2009 Intent Sara HENRY E Tia HENRY, Sara Mc Comments: left leg, today, call wet read Radiology - Foot - LeftBy: [place] On: 27-Dec-2009 Intent Sara HENRY E Tia HENRY, Sara Mc Comments: today call wet read MAMMOGRAM, SCREENING, BOTH BREASTS On: 24-Jun-2009 Intent ([id number])By: Maral Krishnan Inhaler Demo ([id number])By: Shelton RUIZ, On: 09-Jun-2009 Intent Chikis Radiology - Chest- PA and LatBy: On: 09-Jun-2009 Intent Chikis Peoples DO Aerosol Treatment ([id number])By: On: 09-Jun-2009 Intent Chikis Peoples DO Comments: less irritablilty Wax Currettes (33940)By: Shelton On: 09-Jun-2009 Intent Chikis RUIZ Comments: tolerated well - clean -currette used Ear Irrigation ([id number])By: Shelton On: 09-Jun-2009 Intent Chikis RUIZ Comments: pt tolerated well Spirometry (71344)By: Shelton RUIZ On: 09-Jun-2009 Intent Chikis Comments: poor effort started to have coughing fit FLU VAC, SPLIT, >3 YEARS, On: 19-May-2009 Intent INTRAMUSC ([id number])By: Ailyn Jones RN IMMUNIZ ADMNIN, 1 VAC, SNGL/COMBO On: 19-May-2009 Intent ([id number])By: Ailyn Jones RN Echo CompleteBy: Brittany Abraham DO On: 23-Feb-2009 Intent Echo CompleteBy: Brittany Abraham DO On: 10-Jan-2009 Intent PNEUM VAC ADLT/IMUMNOSPR, On: 02-Aug-2008 Intent SBC/INTRM (59119)By: Ran, Comments: Lot #[id number] date:mount given:0.5Site given: right deltoidGiven by:Wf. Rios ADMINISTRATION OF PNEUMOCOCCAL On: 02-Aug-2008 Intent VACCINE (G0009)By: Blanca Tong DXA, BONE DENSITY, AXIAL SKELETON On: 06-Apr-2008 Intent ([id number])By: Fast DO, Brittany A FLU VAC, SPLIT, >3 YEARS, On: 13-Jun-2007 Intent INTRAMUSC (88143)By: Savannah Vargas IMMUNIZ ADMNIN, 1 VAC, SNGL/COMBO On: 13-Jun-2007 Intent ([id number])By: Savannah Vargas Overnight Pulse Ox([id number])By: On: 05-May-2007 Intent Blanca Tong Echo CompleteBy: Fast DO, Brittany A On: 18-Apr-2007 Intent Overnight Pulse OX ([id number])By: Fast On: 18-Apr-2007 Intent DO, Brittany A MAMMOGRAM, SCREENING, BOTH BREASTS On: 14-May-2006 Intent ([id number])By: Jarad DO, Brittany A EKG (60107)By: Fast DO, Brittany A On: 14-May-2006 Intent Echo CompleteBy: Fast DO, Brittany A On: 14-May-2006 Intent Planned Medications INJECTION, CEFTRIAXONE SODIUM, PER 250 MG Ordered: 06-Aug-2017 Pending Kaykay Layne INJECTION, METHYLPREDNISOLONE SODIUM SUCCINATE, UP TO 125 MG Ordered: 08-Aug-2017 Pending Kaykay Layne Instructions Name Dates Details CKD (chronic kidney disease), stage III : DISCONTINUED - CBC, PLATELETS & AUT DIFF (17085) Indication: CKD (chronic kidney disease), stage III CKD (chronic kidney disease), stage III : DISCONTINUED - METABOLIC PANEL, COMPREHENSIVE (27511) Indication: CKD (chronic kidney disease), stage III [...] fibrillation : DISCONTINUED - PT (PROTHROMBIN TIME) (96929) Indication: Atrial fibrillation Atrial fibrillation : DISCONTINUED - PT (PROTHROMBIN TIME) (80037) Indication: Atrial fibrillation Lower GI bleed : DISCONTINUED - CBC, PLATELETS & AUT DIFF (94265) Indication: Lower GI bleed Lower GI bleed : DISCONTINUED - METABOLIC PANEL, COMPREHENSIVE (10387) Indication: Lower GI bleed Diabetes mellitus type [...] : DISCONTINUED - Hemoglobin Glyclated (HGB A1C) (99061) Indication: Diabetes mellitus type II, controlled Osteopenia : DISCONTINUED - Vitamin D Hydroxy (53894) Indication: Osteopenia Essential hypertension with goal blood pressure less than 130/80 : DISCONTINUED - METABOLIC PANEL, COMPREHENSIVE (68702) Indication: Essential hypertension with goal blood pressure less than 130/80 Other chronic nonalcoholic liver disease : DISCONTINUED - [id number]-[id number] (40042) Indication: 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 : DISCONTINUED - PTT (Activated Partial Thromboplastin Time) (42710) Indication: 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 : DISCONTINUED - PT (PROTHROMBIN TIME) (38729) Indication: Other chronic nonalcoholic liver disease Atrial fibrillation : DISCONTINUED - PT (PROTHROMBIN TIME) (30979) Indication: Atrial fibrillation Atrial fibrillation : DISCONTINUED - PT (PROTHROMBIN TIME) (30489) Indication: Atrial fibrillation Atrial fibrillation : DISCONTINUED - BLD CNT, COMPL CBC W/AUTO DIFF WBC (19860) Indication: Atrial fibrillation Anemia, unspecified : DISCONTINUED - CBC WITH MANUAL DIFF (22637) Indication: Anemia, unspecified Mild vitamin D deficiency : DISCONTINUED - Vitamin D Hydroxy (56380) Indication: Mild vitamin D deficiency Mild vitamin D deficiency : DISCONTINUED - Vitamin D Hydroxy (84939) Indication: Mild vitamin D deficiency Abnormal glucose tolerance test : DISCONTINUED - METABOLIC PANEL, COMPREHENSIVE (35713) Indication: Abnormal glucose tolerance test Abnormal glucose tolerance test : DISCONTINUED - METABOLIC PANEL, COMPREHENSIVE (55411) Indication: Abnormal glucose tolerance test Mixed dyslipidemia : DISCONTINUED - LIPID PANEL (88353) Indication: Mixed dyslipidemia Mixed dyslipidemia : DISCONTINUED - LIPID PANEL (01544) Indication: Mixed dyslipidemia Mixed dyslipidemia : DISCONTINUED - HEPATIC FUNCTION PANEL (67398) Indication: Mixed dyslipidemia Anemia, unspecified : DISCONTINUED - CBC WITH MANUAL DIFF (84512) Indication: Anemia, unspecified Diabetes mellitus type 2, [...] Note for Transition into care: Again to [facility] End: 24-Mar-2018 10:05 n for GI Bleed 03-16-18 Dr. Graham..... Gi doce at [place] , A pos. on 03-19 Bunm 19 creat 1.53 last hemoglobin on 03-19 discharge date 8.4. Got iron infusion at [place] and to get on Sat. by Dr. Michelle She wi ll see Dr. Pacheco he is GI at [place] Mar [address] Graham saw [...] Note for Transition into care: Sent to [place] for acute blood loss from coumadin, found ulcertations in the duodenum , no dieulofay lesions or AVM's procedue done by An Olmos. Got 2 units FFP and 8 units of blood, at [place] and 6 more at [place]. INR was 3.7 and day before 2.1Pt [...] reevaluate ??Asking if still needs to see systems consultant Dr. Jean-Baptisteting periodic infusions and iron supplements, [...] reevaluate Asking if still needs to see systems consultant Dr. Caruso periodic infusions and iron supplementsEncounter [...] for chroni c medical issues: Seeing new legal recruiter Dr. Merchant Has had iron levels and iron infusions . Asking if still needs to see systems consultant Dr. MccurdyGetting periodic infusions and iron supplements, [...] explosive GI Bleed wten tot ER at [facility] with CBC with hemoglobin of 8.7 then to 7.9 given a unit of blood, See by Dr. Hobbs for lower GI bleed with colonoscopy found bleeding diverticuli . Dr. Anaya hospitalist . Was on coumadin but taken off Encounter Diagnosis: FL (myocardial infarction), Nonsmoker, Lower GI bleed, BMI [...] (276.7), Sepsis, Anemia, unspecified, Iron deficiency anemia, FL (myocardial infarction) [facility] Office Visit [...] patient does not have 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 of trust and estates attorney or living will. The patient has noticed lack of energy. Other providers contributing to the patient's care are tape editor (Dr. Raymundo), hot strip finisher (Leslie) and other: (chiropractor- once monthly). 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 The patient has noticed lack of energy. Other providers contributing to the patient's care are tape editor (Dr. Raymundo) and other: (chiropractor- once monthly). [...] to 110's/60's). 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 was at [facility] for Heart cath. 07-30-2006). The patient [...] (427.31), Hyperlipidemia, Mixed (272.2), Coronary atherosclerosis of pauma coronary vessel (414.01) [facility] Historical [...]
--- OUTSIDE RECORDS SUMMARY | 2018-11-06 12:12 | XMS RPT_ITS | Continuity of Care Document ---
:1945 Author Organization [facility] Address [facility] [address] [address] Phone Care Team Providers Name Role Phone Sara Swartz CNP Unavailable Jarad Brittany RUIZ Gordo Unavailable Natalia Mccurdy Unavailable Mackenzie Blanton Unavailable Unavailable Long MULE SPINNER, Mona Kemp Unavailable Unavailable Jayda Frias Unavailable Unavailable Alana Mathis Unavailable Unavailable Vishal Bradford Unavailable Unavailable Slarb MULE SPINNER, Alana Unavailable Unavailable Unavailable Unavailable Problems Name [...] creat 1.75 Status: Active Coronary atherosclerosis of nome coronary vessel (I25.10, 414.01) Comments: catheterization: many [...] diet and exercise.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 has 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 of 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 and living will.( and daughter) Status: Active [...] Hypoxia (R09.02, 799.02) Comments: prescribed oxygen by [facility] at discharge, will ask her to [...] GI bleed (K92.2, 578.9) Comments: Admitted to [facility] with hemoglobin, 5.2 got 7 units of blood, was 8.7 on February 10, 2018,8.5 on Holly 18, 2018Admitted to [facility] 03-19-18 with GI bleed last hemoglobin 03-19 is 8.4 Status: Active Lymphedema (I89.0, 457.1) [facility] Status: Active GA (myocardial infarction) (I21.9, 410.90) Comments: per elevated [...] 278.01) Comments: 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 [employer] [facility] [email or web address] [place] work Status: 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, [...] atreium Left atrium enlargement, Rigoberto sending to [facility] main campus for eval Status: Active Medications [...] Refills: 0 Ordered:20-May-2017 Tiffanihamiltongordo HENRY Sara Raymond CHRISTIAN SCIENCE NURSE, Sara Mc Start : 20-May-2017 Active Furosemide 40 MG Oral Tablet 1 (one) Tablet daily for 0 days Quantity: 90 {Tablet} Refills: 3 Ordered:06-Mar-2018 Tia CHRISTIAN SCIENCE NURSE, Sara Raymond CHRISTIAN SCIENCE NURSE, Sara Mc Start : 06-Mar-2018 Active HydrALAZINE HCl 25 MG Oral Tablet 1 Tablet bid for 90 days Quantity: 180 {Tablet} Refills: 3 Ordered:10-Jun-2018 Tia CARL Sara Raymond CHRISTIAN SCIENCE NURSE, Sara Mc Start : 10-Jun-2018 Active LANCETS (Miscellaneous) 1 (one) Misc daily for 0 days Quantity: 100 {Misc} Refills: 3 Ordered:31-Oct-2012 Ariane Hartman Start : 28-Jul-2012 Active Comments:Reli-On Lancets Magnesium Oxide 400 (240 Mg) MG Oral Tablet 1 (one) Tablet qd for 0 days Quantity: 60 {Tablet} Refills: 4 Ordered:31-Dec-2016 Tia CARL Sara Raymond CHRISTIAN SCIENCE NURSE, Sara Mc Start : 31-Dec-2016 Active Metoprolol Tartrate 100 MG Oral Tablet 1 (one) Tablet bid for 90 days Quantity: 180 {Tablet} Refills: 3 Ordered:16-Apr-2018 Tia CARL Sara Raymond CHRISTIAN SCIENCE NURSE, Sara Mc Start : 16-Apr-2018 Active Multivitamins [...] Allergy 32 MCG/ACT Nasal Suspension 2 (two) Flanagan In each nostril Daily for 1 days [...] Quantity: 30 {Tablet} Refills: 0 Ordered:01-May-2011 Tia CHRISTIAN SCIENCE NURSE, Sara Raymond CHRISTIAN SCIENCE NURSE, Sara Mc Start : 01-May-2011 End : 01-May-2011 Discontinued CO-Q 10 [place]-3 Fish Oil Oral Capsule 1 (one) Capsule [...] 20-May-2017 End : 10-Jun-2018 Discontinued VITAMIN D, [id number] (Oral Capsule) 1 (one) Capsule q week for 0 days Quantity: 12 {Capsule} Refills: 0 Ordered:03-Feb-2010 Ariane Hartman Start : 03-Feb-2010 End : 31-Aug-2011 Discontinued Comments:This order discontinued per [facility]. VYTORIN, 10-20MG (Oral Tablet) 1 Tablet [...] Comments: secondary to sepsis, dehyrdation, and ? GA now improving was 2.05 now 1.21 going [...] Visit Report Result: Comments: See Note; NOTES: [facility] [place] [address] OFFICE VISIT Date of Service: 05/27/18 1342 MR#: [id number] Acct: [id number] Name: GABBI ROLLE Rep #: [id number] : 1945 From: Halley Khan MD Age/Sex: [...] GI bleed and was urgently transferred to [facility] where she underwent a nuclear medicine GI [...] GI blood loss Despite oral iron supplementation ([facility]), . Patient was transfused with packed red [...] Q4H PRN PRN 01/03/18 [Combivent Respimat Inhal Flanagan] Furosemide [Lasix] 40 mg PO BID 01/15/18 Primary Care Provider: Sara Swartz Refer [facility] Provider: Halley Khan MD 05/27/18 1411 <Electronically signed by Halley Khan MD> Date Halley Khan MD Cosigner Signature: Date (if applicable) CC: 26-May-2018 Cardiology Visit Report Result: Comments: See Note; NOTES: [facility] [address] [place] [address] OFFICE VISIT Date of Service: 05/26/18 MR#: [id number] Acct: [id number] Name: GABBI ROLLE Rep #: [id number] : 1945 Provider: Niraj Raymundo MD Age/Sex: 73/F [place] [facility] Status: Signed HPI HPI Chief Complaint: [...] syncopal episodes. She continues to see the roll skinner for follow-up of her blood work. 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 Atherosclerosis of nome coronary artery of nome heart without angina pectoris I25.10 [facility]: 6; 04/10/17 Plan She has minimal [...] N18.3 Plan She does have evidence of starch dumper karrie kidney disease as noted above with [...] possible. 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 transplanted heart: nome heart CKD (chronic kidney disease), stage III N18.3 Anemia, unspecified type D64.9 Anemia type: unspecified type Coding Level of C are Code Off vis,est,level 5 Diagnoses Nonrheumatic aortic (valve) stenosis I35.0 Nonrheumatic mitral (valve) insufficiency I34.0 Other secondary pulmonary hypertension I27.29 Essential hypertension I1 0 Hypertension type: essential hypertension Chronic atrial fibrillation I48.2 Atherosclerosis of nome coronary artery of nome heart without angina pectoris I25.10 [place] vs. transplanted heart: lashell ve heart CKD (chronic kidney disease), stage III N18.3 Anemia, unspecified type D64.9 Anemia type: unspecified type 05/26/18 1541 <Electronically signed by Niraj Raymundo MD> Date Niraj Raymundo MD Cosigner Signature: Date (if applicable) CC: Sara Swartz DANIELE 23-May-2018 Echo Transesophageal (YOUNG) Result: Comments: See Note; NOTES: [facility] Cardiovascular Services [address] [place] [address] Echo Transesophageal (YOUNG) 05/23/18 0924 MR#: [id number] Acct: [id number] Name: GABBI GATES Rep #: [id number] : 1945 73 From: Niraj Raymundo MD Attending Dr: Niraj Raymundo MD Status: REG CLI Ordering Dr: Niraj Raymundo MD Date: 05/23/18 Location: [facility] Sex: F C Admitted: Reason For Study: Aortic Stenosis Medication YOUNG probe passed with minimal difficulty. No complications were noted. Topex Topical Flanagan given X4 metered doses orally. Versed 2 [...] Date Niraj Raymundo MD CC: Sara caro EMAIL OPERATIONS MANAGER; Niraj Raymundo MD Date Dictated: 05/23/18 0924 Date Transcribed: 05/23/181511 Conveyor Monitor: Signed 16-May-2018 12 Lead EKG performed by ABHAY Result: Comments: See Note; NOTES: [facility] [address] [place] [address] 12 Lead EKG performed by ABHAY 05/16/18 0957 MR#: [id number] Acct: [id number] Name: GABBI RODAS Rep #: [id number] : 1945 72 From: Niraj Raymundo MD Attending Dr: Niraj Raymundo MD Status: DEP AMB Ordering Dr: Niraj Raymundo MD Date: 05/16/18 [place] [facility] [place] F C Admitted: ORDER # : [id number] BMS/12 Lead EKG performed by [facility] Possible atrial fibrillation Low voltage -possible pulmonary disease. ABNORMAL 05/19/18 0730 <Electronically signed by Niraj Raymundo MD> John e Niraj Raymundo MD CC: Sara Swartz NP Date Dictated: 05/16/18956 Date Transcribed: 05/16/18956 Conveyor Monitor: CO Signed 03-May-2018 Echocardiogram Complete Result: Comments: See Note; NOTES: [facility] Cardi[facility] Services [address] [place] [address] Echo Complete 05/02/18 1405 MR#: [id number] Acct: [id number] Name: GABBI ROLLE Rep #: [id number] : 1945 72 From: Niraj Raymundo MD [...] ____ Niraj Raymundo MD CC: Sara Swartz EMAIL OPERATIONS MANAGER; Niraj Raymundo MD Date Dictated: 05/02/18 1405 Date Transcribed: 05/03/18 1436 Conveyor Monitor: Signed 29-Apr-2018 Oncology Visit Report Result: Comments: See Note; NOTES: [facility] [address] [place] [address] OFFICE VISIT Date of Service: 04/29/18 1417 MR#: [id number] Acct: [id number] Name: GABBI ROLLE Rep #: [id number] : 1945 From: Halley Khan MD Age/Sex: [...] GI bleed and was urgently transferred to [facility] where she underwent a nuclear medicine GI [...] GI blood loss Despite oral iron supplementation ([facility]), . Patient was transfused with packed red [...] Q4H PRN PRN 01/03/18 [Combivent Respimat Inhal Flanagan] Furosemide [Lasix] 40 mg PO BID 01/15/18 Primary Care Provider: Sara Swartz Referring Provider: Halley Khan MD [id number] <Electronically signed by Halley Khan MD> Date Halley Khan MD Cosigner Signature: Date (if applicable) CC: 29-Apr-2018 Cardiology Visit Report Result: Comments: See Note; NOTES: [facility] [address] [place] [address] OFFICE VISIT Date of Service: 04/29/18 MR#: [id number] Acct: [id number] Name: GABBI ROLLE Rep #: [id number] : 1945 Provider: Niraj Raymundo MD Age/Sex: 72/F [place] [facility] Status: Signed [facility] Chief Complaint: Follow up Details: GABBI ROLLE, [...] syncopal episodes. She continues to see the roll skinner for follow-up of her blood work. Her [...] Confirmed 04/29/18] Ipratropium/Albuterol Sulfate [Combivent Respimat Inhal Flanagan] 2 puff IH Q 4H PRN PRN [...] PO PRN PRN 04/29/18 [History Confirmed 04/29/18] [facility] Medical History Atherosclerotic heart disease of nome zita 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 pectoris (Chronic) [...] vessel or lesion type , unspecified whether nome or transplanted heart I25.10 Plan She does [...] above. Plan Detail Follow Up 4 Months ([facility]) Coding Level of Care Code Off vis,est,level 5 Diagnoses Chronic atrial fibrillation I48.2 Essential hypertension I10 Hypertension type: essential hypertension Coronary artery disease, angina p resence unspecified, unspecified vessel or lesion type, unspecified whether nome or transplanted heart I25.10 Coronary Disease-Associated Artery/Lesion type: unspecified vessel or lesion type [place] v s. transplanted heart: unspecified whether nome or transplanted heart Associated angina: angina presence [...] unspecified vessel or lesion type, unspecified whether nome or transplanted heart I25.10 Coronary Disease-Associated Artery/Lesion type: unspecified vessel or lesion type [place] vs. transplanted heart: unspecified whether nome or transplanted heart Associated angina: angina presence [...] Visit Report Result: Comments: See Note; NOTES: [facility] [address] 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 Patient was transfused with packed [...] Q4H PRN PRN 01/03/18 [Combivent Respimat Inhal Flanagan] Furosemide [Lasix] 40 mg PO BID 01/15/18 Primary Care Provider: Sara Swartz Referring Provider: aHlley olivares MD 04/02/18 1419 <Electronically signed by Halley Khan MD> Date Halley Khan MD Cosigner Signature: Date __ (if applicable) CC: 05-Mar-2018 Oncology Visit Report Result: Comments: See Note; NOTES: [facility] [address] [place] [address] OFFICE VISIT Date of Service: 03/05/18 1431 MR#: [id number] Acct: [id number] Name: GABBI ROLLE Rep #: [id number] : 1945 From: Halley Khan MD Age/Sex: [...] GI bleed and was urgently transferred to [facility] where she underwent a [facility] medicine GI blood loss imaging followed [...] Dr. 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 Patien t was transfused with [...] sa Referring Provider: Halley Khan MD 03/05/18 4560 <Electronically signed by Halley Khan MD> Date Halley yee Signature: Date (if applicable) CC: 27-Feb-2018 12 Lead Electrocardiogram Result: Comments: See Note; NOTES: [facility] Cardi[facility] Services [address] [place] [address] 12 Lead EKG 02/23/18 1015 MR#: [id number] Acct: [id number] Name: GABBI ROLLE Rani p #: [id number] : 1945 72 From: Saleem Zavala MD [...] Abnormal ECG Confirmed by SALEEM ZAVALA MD ([id number]), general expeditor JOSE GUADALUPE ROLLEETTE ([id number]) on 02/27/2018 1:03:39 PM Referred By: Sara Swartz Confirmed By:SALEEM ZAVALA MD 02/27/18 1303 Date __ Saleem Zavala MD CC: Sara Swartz NP; Nelson Soria MD Signed 23-Feb-2018 Emergency Department Summary Result: Comments: See Note; NOTES: [facility] Medical Records Department [address] [place] [address] Emergency Department Summary 02/23/18 1009 MR#: [id number] Acct: [id number] Name: GABBI ROLLE Rep #: [id number] : 1945 72 From: Nelson Soria MD [...] recently hospitalized about 3 weeks ago at [facility] for GI bleed. She was seen here initially, and was found to be significantly anemic with a supra therapeutic INR. She was started on a Protonix drip. S he underwent a bleeding scan which showed 2 areas of bleeding from the duodenum and the ascending colon. Given her multiple comorbidities, she was transferred to the ICU at [facility]. While there, patient was transfused. She [...] based on her recent hospitalization at [facility] and multiple comorbidities, it was thought that she would best be served back at a tertiary facility. Patient was started on a Protonix drip given history of duodenal ulcer and bleeding. The patie nt was discussed with Dr. Rowe at [facility] who excepted the patient transfer. She will be transferred to the intensive care unit. Treatment Plan: [] Disposition: Transfer Impression: 1. GI bleed 2. Symptomatic anemia This note was generated with [employer] dictation software. It may contain incorrect words, [...] problems, contact your Primary Care Provider. Call [facility] ([phone]) or report to the closest Emergency Room. Call 911 if necessary. 02/23 1228 <Electronically signed by Nelson Soria MD> Date Nelson Soria MD Cosigner Signature (If Indicated): Date CC: Sara Swartz NP 23-Feb-2018 Chest 1 View (Portable) Result: Comments: See Note; NOTES: [facility] Imaging Services [address] [place] [address] Chest 1 View (Portable) MR#: [id number] Acct: [id number] Name: GABBI ROLLE Rep #: [id number] : 1945 F 72 From: Heriberto Dickey PCP: Sara Swartz NP Status: REG ER Study: Chest 1 View (Portable) Date of Exam: 02/23/18 Exam# [id number] Ordering Dr: Nelson Soria MD STUDY: X-RAY [...] CC: Sara Swartz NP; Nelson Soria MD Conveyor Monitor: Signed 06-Feb-2018 12 Lead Electrocardiogram Result: Comments: See Note; NOTES: [facility] Cardiovascular Services [address] [place] [address] 12 Lead EKG 02/04/18 1427 MR#: [id number] Acct: [id number] Name: GABBI ROLLE Re p #: [id number] : 1945 72 From: Niraj Raymundo MD [...] ECG Confirmed by RIGOBERTO BALDWIN, NIRAJ ([id number]), general expeditor JONATHON ROLLE ([id number]) on 02/06/2018 9:00:22 AM Referred By: SAMMIE Confirmed By:NIRAJ RAYMUNDO MD 02/06/18 0900 Date Niraj Raymundo MD CC: Sara Swartz NP; Hayde Ruvalcaba DO Signed 04-Feb-2018 Emergency Department Summary Result: Comments: See Note; NOTES: [facility] Medical Records Department [address] [place] [address] Emergency Department Summary 02/04/18 1225 MR#: [id number] Acct: [id number] Name: GABBI ROLLE Rep #: [id number] : 1945 72 From: Hayde Ruvalcaba DO [...] is pe nding Treatment Plan: [Transfer to [facility] I discussed case with underwriting director who accepted transfer of the patient. I did give patient 5 mg of vitamin K subcu. Disposition: [Transfer] Impre ssion: Upper GI bleed and lower GI bleed [] This note was generated with [employer] software. It may contain incorrect words, spelling, [...] your Primary Care Provider. Call [facility] ([phone]) or report to the closest Emergency Room. Call 911 if necessary. 02/04/18 1715 <Electronically signed by Hayde Ruvalcaba DO> Date Hayde Ruvalcaba DO Cosigner Signature (If Indicated): Da te CC: Sara Swartz NP 04-Feb-2018 GI Bleed Scan Result: Comments: See Note; NOTES: [facility] Imaging Services [address] [place] [address] GI Bleed Scan MR#: [id number] Acct: [id number] Name: GABBI ROLLE Rep #: [id number] : 1945 F 72 From: Manuel Montoya MD PCP: Sara Swartz NP Status: REG ER Study: GI Bleed Scan Date of Exam: 02/04/18 Exam# [id number] Ordering Dr: Hayde Ruvalcaba DO NM GI [...] , NM/GI Bleed Scan CC: Sara Swartz EMAIL OPERATIONS MANAGER; Hayde Ruvalcaba DO Conveyor Monitor: Signed 29-Jan-2018 Oncology Visit Report Result: Comments: See Note; NOTES: [facility] [address] [place] [address] OFFICE VISIT Date of Service: 01/29/18 1339 MR#: [id number] Acct: [id number] Name: GABBI ROLLE Rep #: [id number] : 1945 From: Halley Khan MD Age/Sex: [...] consider capsule study) despite oral iron supplementation ([facility]) . Patient was transfused with packed red [...] puff IH DAILY 01/03/18 [Combivent Respimat Inhal Flanagan ] Furosemide [Lasix] 40 mg PO BID 01/15/18 Primary Care Provider: Sara Swartz Referring Provider: Halley Khan MD 01/29/18 1436 <Electronically signed by Halley Khan MD> John e Halley Khan MD Cosigner Signature: Date (if applicable) CC: Sara Swartz 16-Jan-2018 Surgery Visit Report Result: Comments: See Note; NOTES: [facility] [address] [facility] [facility] [place] [address] OFFICE VISIT Date of Service: 01/15/18 MR#: [id number] Acct: [id number] Name: GABBI ROLLE Rep #: [id number] : 1945 Provider: Bo Madrid MD Age/Sex: 72/F Location: [facility] Status: Signed Intake Intake Visit Reasons: F/U [...] Confirmed 01/08/18] Ipratropium/Albuterol Sulfate [Combivent Respimat Inhal Flanagan] 1 puff IH DAILY 01/03/18 [History Confirmed 01/08/18] Furosemide [Lasix] 40 mg PO BID 01/15/18 [History Confirmed 01/15/18] PFSH Medical History Atherosclerotic heart disease of nome coronary artery with out angina pectoris (Chronic) [...] no longer needed. Bo Madrid MD Pager: [facility] [address] [place] [address], [address] [place] [address] Office: Fax: Coding Level of Care Code Global Post Op Diagnoses Encounter for insertion of venous access port Z45.2 01/16/18 0936 <Electronically signed by Bo Madrid MD> D ate Bo Madrid MD Cosigner Signature: Date (if applicable) CC: Sara Swartz NP 08-Jan-2018 Operative Report Result: Comments: See Note; NOTES: [facility] Medical Records Department [address] [place] [address] [place] [address] Operative Report 01/08/18 1157 MR#: [id number] Acct: [id number] Name: FINA ROLLE Rep #: [id number] : 1945 72 From: Bo Madrid MD PCP: Sara Swartz NP Status: REG SDC Y Location: [place] [address] Problem List (1) Encounter for insertion of venous access port Status: port gamble (2) Anemia Status: Chronic Qualifiers: Anemia type: [...] x-ray will be obtained. Grafts/Implants Used: 8 [employer] PowerPort and right IJ 01/08/18 1158 <Electronically signed by Bo Madrid MD> Date __ Bo Madrid MD CC: Sara Swartz NP; Bo Madrid MD Signed 08-Jan-2018 CXR for Line Placement Result: Comments: See Note; NOTES: [facility] Imaging Services [address] [place] [address] CXR for Line Placement MR#: [id number] Acct: [id number] Name: GABBI ROLLE Rep #: [id number] : 1945 F 72 From: Irvin Cho MD PCP: Sara Swartz NP [place] [facility] [place] Study: CXR for Line Placement Date of Exam: 01/08/18 Exam# [id number] Ordering Dr: Bo Madrid MD STUD Y: [...] Irvin Cho MD at 12:57 EDT Tel [phone], Service support , CC: Sara Swartz NP; Bo Madrid MD Conveyor Monitor: Signed 08-Jan-2018 Discharge Instruction Result: Comments: See Note; NOTES: [facility] Medical Records Department [address] [place] [address] Instructions for Home/Discharge Instructions 01/08/18 1155 MR#: [id number] Acct: [id number] Name: GABBI ROLLE Rep #: [id number] : 1945 72 From: Bo Madrid MD PCP: Tia SANABRIA, Sara Status[place] [facility] [place] Dis[place] Diet: No Restrictions - Pain medication [...] 11/29/17 Ipratropium/Albute rol Sulfate [Combivent Respimat Inhal Flanagan] 1 puff IH DAILY 01/03/18 Primary Care Physician: Sara Swartz [Primary Care Provider] - Please Follow Up With: Bo Madrid MD When: call tomorrow to make 2 week follow up appt [phone] 01/08/18 1156 <Electronically signed by Bo Madrid MD> Date Bo Madrid MD CC: Sara Swartz NP 03-Jan-2018 Surgery Visit Report Result: Comments: See Note; NOTES: [facility] [address] [place] [address] OFFICE VISIT Date of Service: 01/03/18 MR#: [id number] Acct: [id number] Name: GABBI ROLLE Alexandro Rep #: [id number] : 1945 Provider: Bo Madrid MD Age/Sex: 72/F Location: [facility] Status: Signed Intake Vital Signs01/03/18 Height 5 ft 7 in 01/03/18 Weight: 378 lb 9 oz Body Mass Index (BMI) 59.3 Intake Visit Reasons: Port Placement Chief Complaint: port consult Supervisor Cytogenetic Laboratory Required: No Is patient in pain?: No [...] Confirmed 01/03/18] Ipratropium/Albuterol Sulfate [Combivent Respimat Inhal Flanagan] 1 puff IH 01/03/18 [History Confirmed 01/03/18] Is last menstrual p eriod known: No Post menopausal: Yes Patient : No PFSH Medical History Atherosclerotic heart disease of nome coro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 pect veronika (Chronic) [...] the day of. Bo Madrid MD Pager: [facility] [address] [place] [address], [address] [place] [address] Office: Coding Level of Care Code Off vis,new,level 3 Diagnoses Encounter for insertion of venous access port Z45.2 8 1517 <Electronically signed by Bo Madrid MD> Date Bo Madrid MD Cosigner Signature: Date (if applicable) CC: Sara Swartz EMAIL OPERATIONS MANAGER; Halley Khan MD 01-Jan-2018 Oncology Visit Report Result: Comments: See Note; NOTES: [facility] [address] [place] [address] OFFICE VISIT Date of Service: 01/01/18 1254 MR#: [id number] Acct: [id number] Name: GABBI ROLLE Rep #: [id number] : 1945 From: Halley Khan MD Age/Sex: [...] consider capsule study) despite oral iron supplementation ([facility]) . Patient was transfused with packed red [...] CXR (Obl/Decub/A/L) Result: Comments: See Note; NOTES: [facility] Imaging Services [address] [place] [address] Special CXR (Obl/Decub/A/L) MR#: [id number] Acct: [id number] Name: GABBI ROLLE Rep #: [id number] : 1945 F 72 From: Geovanni Roper MD PCP: Sara Swartz NP Status: REG CLI Study: Special CXR (Obl/Decub/A/L) Date of Exam: 12/23/17 Exam# [id number] Ordering Dr: Carlos Nelson MD STUDY: X-RAY CHEST REASON FOR EXAM: Female, 72 years old. Dyspnea TECHNIQUE: Bilateral decubitus. COMPARISON: Radiographs of the same date.. FINDINGS: On the l eft there is a small layering pleural effusion. On the right no significant free- flowing fluid. Electronically Signed: Geovanni Roper MD at 16:00 EDT , Service support 08-26 [phone], RAD/Special CXR (Obl/Decub/A/L) CC: Sara Swartz NP; Carlos Nelson MD Conveyor Monitor: Signed 23-Dec-2017 Special CXR (Obl/Decub/A/L) Result: Comments: See Note; NOTES: [facility] Imaging Services [address] [place] [address] Special CXR (Obl/Decub/A/L) MR#: [id number] Acct: [id number] Name: GABBI ROLLE Rep #: [id number] : 1945 F 72 From: Geovanni Roper MD PCP: Sara Swartz NP Status: REG CLI Study: Special CXR (Obl/Decub/A/L) Date of Exam: 12/23/17 Exam# [id number] Ordering Dr: Carlos Nelson MD STUDY: X-RAY [...] CC: Sara Swartz NP; Carlos Nelson MD Conveyor Monitor: Signed 23-Dec-2017 Chest PA and Lateral Result: Comments: See Note; NOTES: [facility] Imaging Services [address] [place] [address] Chest PA and Lateral MR#: [id number] Acct: [id number] Name: GABBI ROLLE Rep #: [id number] : 1945 F 72 From: Geovanni Roper MD PCP: Sara Swartz NP Status: REG CLI Study: Chest PA and Lateral Date of Exam: 12/23/17 Exam# [id number] Ordering Dr: Carlos Nelson MD STUDY: X-RAY [...] , Service support , CC: Sara Swartz EMAIL OPERATIONS MANAGER; Carlos Nelson MD Conveyor Monitor: Signed 06-Dec-2017 Oncology Visit Report Result: Comments: See Note; NOTES: [facility] [place] [address] OFFICE VISIT Date of Service: 12/05/17 1029 MR#: [id number] Acct: [id number] Name: GABBI ROLLE Rep #: [id number] : 1945 From: Halley Khan MD Age/Sex: [...] 2016). Patient is being [facility] for chronic, recurrent anemia that has been [...] consider capsule study) despite oral iron supplementation ([facility]) . Patient was transfused with packed red [...] View (Portable) Result: Comments: See Note; NOTES: [facility] Imaging Services [address] [place] [address] Chest 1 View (Portable) MR#: [id number] Acct: [id number] Name: GABBI ROLLE Rep #: [id number] : 1945 F 72 From: Norah Arreaga MD PCP: Sara Swartz NP Status: REG ER Study: Chest 1 View (Portable) Date of Exam: 11/29/17 Exam# [id number] Ordering Dr: Gabi Gardner MD STUDY: X-R [...] , Service support , CC: Sara Swartz EMAIL OPERATIONS MANAGER; Gabi Gardner MD Conveyor Monitor: Signed 22-Nov-2017 12 Lead Electrocardiogram Result: Comments: See Note; NOTES: [facility] Cardiovascular Services [address] [place] [address] 12 Lead EKG 11/18/17 1440 MR#: [id number] Acct: [id number] Name: GABBI ROLLE Alexandro Saravia p #: [id number] : 1945 72 From: Niraj Raymundo MD [...] Abnormal ECG Confirmed by RIGOBERTONIRAJ ANNE MD ([id number]), general expeditor JONATHON ROLLE ([id number]) on 11/22/2017 12:57:07 PM Referred By: JOO Confirmed By:NIRAJ RAYMUNDO MD 11/22/17 1257 Date Niraj Raymundo MD CC: Sara Swartz NP; Ariane Lakhani MD Signed 18-Nov-2017 Emergency Department Summary Result: Comments: See Note; NOTES: [facility] Medical Records Department [address] [place] [address] Emergency Department Summary 11/18/17 1735 MR#: [id number] Acct: [id number] Name: GABBI ROLLE Rep #: [id number] : 1945 72 From: Ariane Lakhani MD [...] weeks to see benefit. She called her roll skinner today to see if she needed to [...] Dyspnea This note was gene rated with [employer] dictation software. It may contain incorrect words, [...] your Primary Care Provider. Call [facility] ([phone]) or report to the closest Emergency Room. Call 911 if necessary. 11/18/171747 <Electronica lly signed by Ariane Lakhani MD> Date Ariane Lakhani MD Cosigner Signature (If Indicated): Date CC: Sara Swartz EMAIL OPERATIONS MANAGER 18-Nov-2017 Discharge Instruction Result: Comments: See Note; NOTES: [facility] Medical Records Department [address] [address] Discharge Instruction 11/18/171739 MR#: [id number] Acct: [id number] Name: GABBI ROLLE Rep #: [id number] : 1945 72 From: Ariane Lakhani MD [...] your Primary Care Provider. Call [facility] ([phone]) or report to the closest Emergency Room. Call 911 if necessary. 11/18/17 1743 <Electronically signed by Ariane Lakhani MD> Date Ariane Lakhani MD Cosigner Signature (If Indicated): Date CC: Sara Swartz NP 18-Nov-2017 Chest PA and Lateral Result: Comments: See Note; NOTES: [facility] Imaging Services [address] [place] [address] Chest PA and Lateral MR#: [id number] Acct: [id number] Name: GABBI ROLLE Rep #: [id number] : 1945 F 72 From: Aaron Kenyon MD PCP: Sara Swartz NP Status: REG ER Study: Chest PA and Lateral Date of Exam: 11/18/17 Exam# [id number] Ordering Dr: Ariane Lakhani MD STUDY: X-RAY [...] , Service support , CC: Sara Swartz EMAIL OPERATIONS MANAGER; Ariane Lakhani MD Conveyor Monitor: Signed 04-Nov-2017 Oncology Visit Report Result: Comments: See Note; NOTES: [facility] [address] [place] [address]. [place] [address] OFFICE VISIT Date of Service: 11/04/17 1252 MR#: [id number] Acct: [id number] Name: GABBI ROLLE Rep #: [id number] : 1945 From: Halley Khan MD Age/Sex: [...] with Dr. 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 This note was generated with [employer] dictation software. It may contain incorrect words, [...] Visit Report Result: Comments: See Note; NOTES: [facility] [address] [place] [address]. [address] [place] [address] OFFICE VISIT Date of Service: 09/18/17 MR#: [id number] Acct: [id number] Name: GABBI ROLLE Rep #: [id number] : 1945 Provider: DANIELE Figueredo Age/Sex: 72/F [place] [facility] [place]: Signed HPI 4 M FU: Details: GABBI ROLLE, is a 72 F who [facility] the [facility]. 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 Atherosclerosis of nome coronary artery of nome heart without angina pectoris I25.10 [facility]: 07/30/2006; 04/10/17 ROSALIND King Patient's most [...] prior to saving. Follow Up 6 Months ([facility] [employer]) Coding Level of Care Code Off vis,est,level 3 Diagnoses Atherosclerosis of nome coronary artery of nome heart without angina pectoris I25.10 [place] vs. 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 Nonrheumatic aortic (valve) jamie nosis I35.0 Essential hypertension I10 Hypertension type: essential hypertension Mixed hyperlipidemia E78.2 Hyperlipidemia type: mixed hyperlipidemia 09/18/17 1515 <Electronically signed by Mendez Figueredo EMAIL OPERATIONS MANAGER-C> Date Lazaro GARCIAC 09/20/17 1531<Electronically signed by Niraj Raymundo MD> Cosigner Signature: Date ____ (if applicable) Niraj Raymundo MD CC: Sara Swartz NP 06-Aug-2017 Chest PA and Lateral Result: Comments: See Note; NOTES: [facility] Imaging Services [address] [place] [address] Chest PA and Lateral MR#: [id number] Acct: [id number] Name: GABBI ROLLE Rep #: [id number] : 1945 F 72 From: Ariane Crook MD PCP: Sara Swartz NP Status: REG CLI Study: Chest PA and Lateral Date of Exam: 08/06/17 Exam# [id number] Ordering Dr: Kaykay Layne EMAIL OPERATIONS MANAGER-Cassie STUDY: X-RAY C HEST REASON FOR EXAM: [...] Crook MD at 17:23 EST Tel Direct: [phone], Service support 08-26 [phone], CC: Sara Swartz NP; EMAIL OPERATIONS MANAGER-C Kaykay Layne Conveyor Monitor: Signed 30-Jul-2017 Breast Limited Unilateral Result: Comments: See Note; NOTES: [facility] Imaging Services [address] [place] [address] Breast Limited Unilateral MR#: [id number] Acct: [id number] Name: GABBI ROLLE Rep #: [id number] : 1945 F 72 From: Irvin Cho MD PCP: Sara Swartz NP Status: REG CLI Study: Breast Limited Unilateral Date of Exam: 07/30/17 Exam# [id number] Ordering Dr: Sara Swartz STUDY: UL TRASOUND [...] Irvin Cho MD at 12:42 EST Tel [phone], Servic e support , CC: Sara Swartz NP Conveyor Monitor: Signed 23-Jul-2017 SCREENING MAMM (CAD), BILAT Result: Comments: See Note; NOTES: [facility] Imaging Services [address] [facility] [address] SCREENING MAMM (CAD), BILAT MR#: [id number] Acct: [id number] Name: GABBI ROLLE Rep #: [id number] : 1945 F 72 From: Irvin Cho MD PCP: Sara Swartz NP Status: REG CLI Study: SCREENING MAMM (CAD), BILAT Date of Exam: 07/23/17 Exam# [id number] Ordering Dr: Sara Swartz MAMMO GRAPHY - [...] delay biopsy of a clinically suspicious abnormality. [id number] El ectronically Signed: Irvin Cho MD at 9:57 EST Tel [phone], Service support , CC: Sara Swartz NP Conveyor Monitor: Signed 10-May-2017 History and Physical Exam Result: Comments: See Note; NOTES: [facility] Medical Records Department [address] [facility] [address] History and Physical 05/10/17 1126 MR#: [id number] Acct: [id number] Name: Alvina ROLLE Rep #: [id number] : 1945 71 From: Halley Khan MD [...] iron but tends to recur. Power of Animal Nurse: Yes Living Will: Yes Health History: Past [...] Hemoptysis Gastrointestinal:: Reports: Hematochezia, - - Periodic [place] bleed, red no melena No reflux symptoms. [...] and Lateral Result: Comments: See Note; NOTES: [facility] Imaging Services [address] [address] Chest PA and Lateral MR#: [id number] Acct: [id number] Name: GABBI ROLLE Rep #: [id number] : 1945 F 71 From: Ariane Crook MD PCP: Sara Swartz Status: REG CLI Study: Chest PA and Lateral Date of Exam: 03/26/17 Exam# [id number] Ordering Dr: Niraj Raymundo MD STUDY: X-RAY [...] Ariane Crook MD at 20:49 EDT Tel [phone], Service support , CC: Sara Swartz; Niraj Raymundo MD Conveyor Monitor: Signed 05-Mar-2017 Venous Duplex Lower Extremity Result: Comments: See Note; NOTES: [facility] Cardiovascular Services [address] [place] [address] Venous Duplex US, Unilateral 03/05/17 1427 MR#: [id number] Acct: [id number] Name: GABBI MCGOVERN Rep #: [id number] : 1945 71 From: Francisco Ji MD Attending Dr: Heron Hobbs Status: REG CLI Ordering Dr: Heron Hobbs MD Date: 03/05/17 Location: [facility] Sex: F C Admitted: Reason For [...] Date Dictated: 03/05/17 1427 Date Transcribed: 03/05/171601 Conveyor Monitor: Signed 04-Feb-2017 Kidney and Bladder Result: Comments: See Note; NOTES: [facility] Imaging Services [address] [place] [address] Verdana 4d Kidney and Bladder MR#: [id number] Acct: [id number] Name: GABBI ROLLE Rep # : [id number] : 1945 F 71 From: Irvin Galarza DO PCP: Sara Swartz Status: REG CLI Study: Kidney and Bladder Date of Exam: 02/04/17 Exam# [id number] Ordering Dr: Natalia Mccurdy DO STUDY: RENAL ULTRAS OUND - COMPLETE REASON FOR EXAM: Female, 71 years old. Chronic kidney disease stage III TECHNIQUE: Ultrasound evaluation of the kidneys was performed with real-time and static ruggiero-scale imaging. [employer] [place]ISON: None. FINDINGS: RIGHT KIDNEY: Normal location [...] Irvin Galarza DO at 22:55 EDT Tel [phone], Service support , CC: Sara Swartz; Natalia Mccurdy DO Conveyor Monitor: Signed 09-Dec-2016 Emergency Department Summary Result: Comments: See Note; NOTES: [facility] Medical Records Department [address] [place] [address] Emergency Department Summary MR#: [id number] Acct: [id number] Name: FINA ROLLE Rep #: [id number] : 1945 71 From: Maral Palacios MD [...] Dehydration. Maral Palacios MD T: NTS JOB: [id number] 12/09/16 0728 <Electronically signed by Maral Palacios MD> Date Maral Palacios MD Cosigner Signature (If Indicated ): Date CC: Sara Nixonyany Date Dictated: 12/09/1604 Date Transcribed: 12/09/16703 Conveyor Monitor: Signed 09-Dec-2016 Chest PA and Lateral Result: Comments: See Note; NOTES: [facility] Imaging Services [address] [place] [address] Verdana 4d Chest PA and Lateral MR#: [id number] Acct: [id number] Name: GABBI ROLLE Rep #: [id number] : 1945 F 71 From: Aaron Kenyon MD PCP: Sara Swartz Status: REG ER Study: Chest PA and Lateral Date of Exam: 12/09/16 Exam# [id number] Ordering Dr: Maral Palacios MD STUDY: X-RAY [...] Tel , Service support , Fa x [phone] CC: Sara Swartz; Maral Palacios MD Conveyor Monitor: Signed 10-Sep-2016 Stress Test Echo w/o Contrast Result: Comments: See Note; NOTES: [facility] Cardiovascular Services [address] [place] [address] Verdana 4d Stress Test Echo w/o Contrast MR#: [id number] Acct: [id number] Name: GABBI WAY Rep #: [id number] : 1945 71 From: Niraj Raymundo MD [...] Dictated: 09/10/16 1258 Date Transcribed: 09/10/16 1523 Conveyor Monitor: Signed 27-Jul-2016 Bilat Scrn Digital AND CAD Result: Comments: See Note; NOTES: [facility] Imaging Services [address] [place] [address] Verdana 4d Bilat Scrn Digital AND CAD MR#: [id number] Acct: [id number] Name: GABBI ROLLE Rep #: [id number] : 1945 F 71 From: Irvin Cho MD PCP: Jacinto Sheehan Status: REG CLI Study: Bilat Scrn Digital AND CAD Date of Exam: 07/27/16 Exam# [id number] Ordering Dr: Jacinto Sheehan MAMMOGRAPHY - BILATERAL [...] delay biopsy of a clinically suspicious abnormality. [id number] Electronically Signed: Irvin Cho MD at 10:02 EST Tel [phone], Service support [phone], CC: Jacinto Sheehan Conveyor Monitor: Signed 11-Apr-2016 Dexa Bone Density/Append Skel Result: Comments: See Note; NOTES: [facility] Imaging Services [address] [place] [address] Ajaydamichael 4d Dexa Bone Density/Append Skel MR#: [id number] Acct: [id number] Name: SHYAM ROLLE Rep #: [id number] : 1945 F 70 From: Irvin Cho MD PCP: Jacinto Sheehan Status: REG CLI Study: Dexa Bone Density/Append Skel Date of Exam: 04/11/16 Exam# [id number] Ordering Dr: Jacinto Sheehan STUDY: DUAL ENERGY [...] Irvin Cho MD at 11:29 EDT Tel [phone], Ser vice support [phone], CC: Jacinto Sheehan Conveyor Monitor: Signed 26-Dec-2015 Liver Result: Comments: See Note; NOTES: [facility] Imaging Services [address] [place] [address] Verdana 4d Liver MR#: [id number] Acct: [id number] Name: GABBI ROLLE Rep # : [id number] : 1945 F 70 From: Irvin Cho MD PCP: Brittany Abraham DO Status: REG CLI Study: Liver Date of Exam: 12/26/15 Exam# [id number] Ordering Dr: Brittany Abraham DO STUDY: ABDOMINAL [...] Irvin Cho MD at 12:58 EDT Tel [phone], Service support [phone], CC: Brittany Abraham DO Conveyor Monitor: Signed 25-Jul-2015 Bilat Scrn Digital AND CAD Result: Comments: See Note; NOTES: [facility] Imaging Services [address] [place] [address] Verdana 4d Bilat Scrn Digital AND CAD MR#: [id number] Acct: [id number] Name: GABBI ROLLE Rep #: [id number] : 1945 F 70 From: Irvin Cho MD PCP: Brittany Abraham DO Status: REG CLI Study: Bilat Scrn Digital AND CAD Date of Exam: 07/25/15 Exam# [id number] Therese trujillo Dr: Brittany Abraham DO MAMMOGRAPHY [...] delay biopsy of a clinically suspicious abnormality. [id number] Electronically Signed: Irvin Cho MD at 8:59 EST Tel [phone], Service support [phone], CC: Brittany Abraham DO Conveyor Monitor: Signed 22-Jun-2015 Carotid Duplex Ultrasound Result: Comments: See Note; NOTES: [facility] Cardiovascular Services [address] [place] [address] Carotid Duplex Ultrasound 06/17/15 0851 MR#: [id number] Acct: [id number] Name: GABBI ROLLE Rep #: [id number] : 1945 70 From: Sharath Mortensen MD [...] the left vertebral artery. Procedure Carotid Duplex 03592. The exam was diagnostic. The study was [...] Date Dictated: 06/17/15 0851 Date Transcribed: 06/22/1540 Conveyor Monitor: Signed 24-Mar-2015 Pulmonary Function Report Comp Result: Comments: See Note; NOTES: [facility] Pulmonary Services/Neurology [address] [place] [address] Pulmonary Function Test (Comp) MR#: [id number] Acct: [id number] Name: GABBI WAY Rep #: [id number] : 1945 69 From: Pako Andre MD [...] edema. PAKO ANDRE MD T: NTS JOB: [id number] SPIROMETRY Ref ULN/LLN Pre Pre Post Post [...] Date Dictated: 1554 Date Transcribed: 03/22/15 155 Conveyor Monitor: Signed 11-Mar-2015 Echocardiogram Complete Result: Comments: See Note; NOTES: [facility] Cardiovascular Services [address] [place] [address] Echo Complete 03/11/15 1108 MR#: [id number] Acct: [id number] Name: Alvina ROLLE Rep #: [id number] : 1945 69 From: Niraj Raymundo MD Attending Dr: Niraj Raymundo MD Status: REG CLI Ordering Dr: Niraj Raymundo MD Date: 03/11/15 Location: [facility] Sex: F C Admitted: Rita fernandez This [...] Dictated: 03/11/15 1108 Date Transcribed: 03/11/15 1247 Conveyor Monitor: Signed 23-Jul-2014 Suha Terry Digital & CAD Result: Comments: See Note; NOTES: [facility] Imaging Services [address] [place] [address] Breast Imaging Report MR#: [id number] Acct: [id number] Name: GABBI ROLLE Rep #: [id number] : 1945 F 69 From: Irvin Coh MD PCP: Brittany Abraham DO Status: REG CLI Exam# [id number] Ordering Dr: Brittany Abraham DO MAMMOGRAPHY - [...] small lymph nodes. CC: Brittany Abraham DO Conveyor Monitor: Signed 29-Jun-2014 Knee 4 or More Views Result: Comments: See Note; NOTES: [facility] Imaging Services [address] [place] [address] Radiology Report MR#: [id number] Acct: [id number] Name: GABBI ROLLE Rep #: [id number] : 1945 F 69 From: Po Segovia DO PCP: Brittany Abraham DO Status: REG CLI Study: Knee 4 or More Views Date of Exam: 06/29/14 Exam# [id number] Ordering Dr: Brittany Abraham DO STUDY: X-RAY [...] at 6:27 EST Tel , Service support [phone], CC: Brittany Abraham DO Conveyor Monitor: Signed 29-Jun-2014 Knee 4 or More Views Result: Comments: See Note; NOTES: [facility] Imaging Services [address] [place] [address] Radiology Report MR#: [id number] Acct: [id number] Name: GABBI ROLLE Rep #: [id number] : 1945 F 69 From: Po Segovia DO PCP: Brittany Abraham DO Status: REG CLI Study: Knee 4 or More Views Date of Exam: 06/29/14 Exam# [id number] Ordering Dr: Brittany Abraham DO STUDY: X-RAY [...] 6:35 EST Tel , Service [place] pport [phone], CC: Brittany bAraham DO Conveyor Monitor: Signed 08-Feb-2014 OT Discharge Summary Result: Comments: See Note; NOTES: [facility] [address] [place] [address]. [address] [place] [address] Fax REHABILITATION SERVIC ES DISCHARGE SUMMARY MR#: [id number] Acct: [id number] Name: GABBI ROLLE Rep #: [id number] : 1945 68 From: Flavia Metz Referring [...] was to receive compression g arments through [facility]. The order was faxed over to them for the compression garments. However, unaware if the patient received those garments. At this time, again the patient was to return fo r followup visits to ensure proper fitting of compression hose. At this time, she has not done so and is discharged. Flavia Metz, OTR/L T: NTS JOB: [id number] <Electronically signed by Flavia Metz > 02/08/14 1513 CC: Signed 22-Dec-2013 Initial Evaluation - OT Result: Comments: See Note; NOTES: [facility] Therapy [address] [place] [address] Fax [facility]#: [id number] Acct: [id number] Name: GABBI ROLLE Rep #: [id number] : 1945 68 From: Flavia Metz Referring DrYuli: Brittany Abraham DO Status: DIS RCR Insurance: M VALERIE PART A B Eval Date: [facility] DATE OF SERVICE: 12/15/2013 PHYSICIAN: Brittany Abraham [...] understanding. Flavia Metz OTR/L T: NTS JOB: [id number] <Electr onically signed by Flavia Metz > 12/22/13 1311 CC: Signed For Medicare only, by signing this I certify the plan of care. Physicians Signature Date 14-Dec-2013 Liver Result: Comments: See Note; NOTES: [facility] Imaging Services [address] [place] [address] Ultrasound Report MR#: [id number] Acct: [id number] Name: GABBI ROLLE Rep #: [id number] : 1945 F 68 From: Irvin Cho MD PCP: Brittany Abraham DO Status: REG CLI Study: Liver Date of Exam: 12/14/13 Exam# [id number] Ordering Dr: Brittany Abraham DO STUDY: ABDOMINAL [...] Irvin Cho MD at 10:02 EDT Tel [phone], Service support [phone], CC: Brittany Abraham DO Conveyor Monitor: Signed 18-Nov-2013 Chest PA and Lateral Result: Comments: See Note; NOTES: [facility] Imaging Services [address] [place] [address] Radiology Report MR#: [id number] Acct: [id number] Name: GABBI ROLLE Rep #: [id number] : 1945 F 68 From: Irvin Cho MD PCP: Brittany Abraham DO Status: REG CLI Study: Chest PA and Lateral Date of Exam: 11/18/13 Exam# [id number] Ordering Dr: Sara Swartz STUDY: X-RAY CHEST [...] M.D. at 15:41 EDT , Service support [phone], CC: Sara Swartz; Brittany Abraham DO Conveyor Monitor: Signed 03-Nov-2013 Chest PA and Lateral Result: Comments: See Note; NOTES: [facility] Imaging Services [address] [place] [address] Radiology Report MR#: [id number] Acct: [id number] Name: GABBI ROLLE Rep #: [id number] : 1945 F 68 From: Irvin Cho MD PCP: Brittany Abraham DO Status: REG CLI Study: Chest PA and Lateral Date of Exam: 11/03/13 Exam# [id number] Ordering Dr: Brittany Abraham DO STUDY: X- [...] M.D. at 11:18 EDT , Service support [phone], Fax CC: Brittany Abraham DO Conveyor Monitor: Signed 30-Jul-2013 Suha Terry Digital & CAD Result: Comments: See Note; NOTES: [facility] Imaging Services [address] [place] [address] Breast Imaging Report MR#: [id number] Acct: [id number] Name: GABBI ROLLE Rep #: [id number] : 1945 F 68 From: Irvin Cho MD PCP: Brittany Abraham DO Status: REG CLI Exam# [id number] Ordering Dr: Brittany Abraham DO MAMMOGRAPHY - [...] at 8:11 EST Tel , Service support [phone], CC: Brittany Abraham DO Conveyor Monitor: Signed 30-Jul-2013 Dexa Bone Density Study (HP) Result: Comments: See Note; NOTES: [facility] Imaging Services [address] [place] [address] Bone Density Report MR#: [id number] Acct: [id number] Name: GABBI ROLLE Rep #: : 1945 F 68 From: Irvin Cho MD PCP: Brittany Abraham DO Status: REG CLI Study: Dexa Bone Density Study (HP) Date of Exam: 07/30/13 Exam# [id number] Ordering Dr: Brittany Abraham DO STUDY: DUAL [...] M.D. at 9:58 EST , Service support [phone], CC: Brittany Abraham DO Conveyor Monitor: Signed Immunization Name Dates Details Influenza (3 [...] Height 0 in Head Circumference 0.00 cm 77-Qnq-131973:15 Temperature 97.6 f Comments: Method: Oral Pulse [...] Description Value Details :34 HgA1C , Office (37375) HgA1C , Office 5.4 % (Normal) Range: 4.6 - 7.1 :34 Blood Glucose , Office (76928) Blood Glucose , Office 145 (Normal) 89-Ubg-765313:14 Basic Metabolic Profile (BMP) Comments: [facility] [address]updrbdw[address] [place], [address] GAP 8 (Normal) Range: 5-15 CO2 28.0 [...] A.D.A. criteria.Please note revised GLUCOSE reference range egesifkez04/02/2018. 68-Bcw-140267:14 PTHIN 127.7 pg/mL (Abnormal) Comments: [facility] Gzloycrjoh[address] [place], [id number] Range: 18.4-80.1 28-Zko-926100:47 Basic Metabolic Profile (BMP) Comments: [facility] Ldkmandvqx9[address] [place], [address] GAP 7 (Normal) Range: 5-15 CO2 25.0 [...] A.D.A. criteria.Please note revised GLUCOSE reference range qsravleqo37/02/2018. 19-Qsr-605867:47 Renal Profile Comments: [facility] [address] [place], [address] CO2 25.0 mmol/L (Normal) Range: 21.0-32.0 CL [...] A.D.A. criteria.Please note revised GLUCOSE reference range qjcwslyze34/02/2018. 09-Bxg-250356:46 CBC W/Diff, Automated Comments: Reason for Laboratory Test .[facility] Wyfuwwfviu[address] [place], [address] Absolute Lymph 0.69 {X10_3/ul} (Abnormal) Range: 0.83-4.51 [...] 4.2-5.4 WBC 4.6 K/mm3 (Normal) Range: 4.4-11.0 41-Dza-985805:46 Ferritin Comments: Reason for Laboratory Test .[facility] Tfdwygjdjv82[address] [place], [place], [address] FERRITIN 55 ng/mL (Normal) Range: 8-252 74-Gwl-204198:46 Iron+Iron Binding Capacity Comments: Reason for Laboratory Test .[facility] Usslmlnwqr8395 [place], [address] IRON SATURATION 13.4 % (Abnormal) Range: 15.0-55.0 IRON 47 ug/dL (Abnormal) Range: 50-170 TIBC 350 ug/dL (Normal) Range: 250-450 33-Lwh-272510:45 Partial Thromboplast Time Comments: [place] [address] [place], [address] PTT 44.5 s (Abnormal) Range: 24.1-36.2 61-Vgj-857937:45 Prothrombin Time w/INR Comments: [place] [address] [place], [address] INR 1.2 (Normal) PROTIME 15.0 s (Abnormal) Range: 11.7-14.9 2-Qel-520952:16 Renal Profile Comments: [place] [address] [place], [address] CO2 24.0 mmol/L (Normal) Range: [...] A.D.A. criteria.Please note revised GLUCOSE reference range xnufopdtx60/02/2018. 2-Swl-998242:15 CBC W/Diff, Automated Comments: Reason for Laboratory Test .[facility] Tixloggswm8359 [address] [place], [place], [address] Absolute Lymph 0.91 {X10_3/ul} (Normal) Range: 0.83-4.51 [...] 4.2-5.4 WBC 4.2 K/mm3 (Abnormal) Range: 4.4-11.0 2-Uju-702612:15 Ferritin Comments: Reason for Laboratory Test .[facility] Jhvnfcqirk23[address] [place], [place], [address] FERRITIN 44 ng/mL (Normal) Range: 8-252 6-Jdy-610761:15 Iron+Iron Binding Capacity Comments: Reason for Laboratory Test .[facility] Kovapkxius60[address] [place], [place], [phone] IRON SATURATION 11.8 % (Abnormal) Range: 15.0-55.0 IRON 42 ug/dL (Abnormal) Range: 50-170 TIBC 355 ug/dL (Normal) Range: 250-450 43-Rpg-947411:22 CBC W/Diff, Automated Comments: Reason for Laboratory Test DRAW BLOODBANK TUBE FOR TYPE AND HOLDWS[facility]ma [facility] Sp[address]roseed[address] [place], [place], [address] Absolute Lymph 0.76 {X10_3/ul} (Abnormal) Range: 0.83-4.51 [...] 4.2-5.4 WBC 5.7 K/mm3 (Normal) Range: 4.4-11.0 5-Cbi-415060:39 Renal Profile Comments: [facility] Jmkfrfaqvt8[address] [place], [place], [address] CO2 24.0 mmol/L (Normal) Range: 21.0-32.0 CL [...] A.D.A. criteria.Please note revised GLUCOSE reference range rmddgaaxo49/02/2018. 0-Zmt-147792:04 CBC W/Diff, Automated Comments: Reason for Laboratory Test .[facility] [address] [place], [place], [address] Absolute Lymph 0.85 {X10_3/ul} (Normal) Range: 0.83-4.51 [...] 4.2-5.4 WBC 5.4 K/mm3 (Normal) Range: 4.4-11.0 9-Pio-552440:04 Ferritin Comments: Reason for Laboratory Test .[facility] [address] [place], [place], [address] FERRITIN 135 ng/mL (Normal) Range: 8-252 5-Mms-572451:04 Iron+Iron Binding Capacity Comments: Reason for Laboratory Test .[facility] Jlxypzgrtj4[address] [place], [place], [address] IRON SATURATION 31.9 % (Normal) Range: 15.0-55.0 IRON 117 ug/dL (Normal) Range: 50-170 TIBC 367 ug/dL (Normal) Range: 250-450 63-Dxl-291121:26 CBC W/Diff, Automated Comments: [facility] Mewmohkgfc8[address] [place], [place], [address] Absolute Lymph 0.86 {X10_3/ul} (Normal) Range: 0.83-4.51 [...] 4.2-5.4 WBC 5.8 K/mm3 (Normal) Range: 4.4-11.0 01-Bvf-741933:26 Comprehensive Metabolic Profil Comments: [facility] Baxlpoigjs[address] [place], [place], [address] GAP 7 (Normal) Range: 5-15 CO2 27.0 [...] A.D.A. criteria.Please note revised GLUCOSE reference range ckferqego77/02/2018. 13-Vjy-989638:36 Ferritin Comments: Reason for Laboratory Test .[facility] Nlhdtilsvp8346 [address] [place], [place], [address] FERRITIN 54 ng/mL (Normal) Range: 8-252 61-Vtm-617629:36 Iron+Iron Binding Capacity Comments: Reason for Laboratory Test .[facility] Xwxjnhfigg3156 [address] [place], [place], [address] IRON SATURATION 12.7 % (Abnormal) Range: 15.0-55.0 IRON 42 ug/dL (Abnormal) Range: 50-170 TIBC 331 ug/dL (Normal) Range: 250-450 37-Uad-638249:21 CBC-Complete Blood Cnt No Diff Comments: [facility] [address] [place], [place], [address] MPV 10.8 fL (Normal) Range: 6.2-12.0 PLT [...] 4.2-5.4 WBC 6.2 K/mm3 (Normal) Range: 4.4-11.0 3-Fyo-447543:15 CBC W/Diff, Automated Comments: [address] [place], [place], [address] Absolute Lymph 0.79 {X10_3/ul} (Abnormal) Range: 0.83-4.51 [...] 4.2-5.4 WBC 7.0 K/mm3 (Normal) Range: 4.4-11.0 3-Lnb-089119:15 Comprehensive Metabolic Profil Comments: [facility] Hyvicoqjzk1671 [address] [place], [place], [address] GAP 8 (Normal) Range: 5-15 CO2 21.0 [...] A.D.A. criteria.Please note revised GLUCOSE reference range sduefxaet75/02/2018. 7-Lat-087661:15 Lactic Acid Comments: Yes/No query for Sepsis Lactate Rule [facility] [address] [place], [place], [id number] LACTIC ACID 2.1 mmol/L (Abnormal) Range: 0.4-2.0 Comments: Critical Result(s) Called at: 10:59:09 02/23/2018 by: Juve House RN 7-Obk-319337:15 Partial Thromboplast Time Comments: [address] [place], [address] PTT 36.8 s (Abnormal) Range: 24.1-36.2 1-Fou-665624:15 Prothrombin Time w/INR Comments: [address] [place], [place], [address] INR 1.2 (Normal) PROTIME 15.2 s (Abnormal) Range: 11.7-14.9 6-Zkl-282082:15 Troponin-I Comments: [address] [place], [place], [address] TROPONIN-I < 0.015 ng/mL (Normal) Comments: TROPONIN-I EXPECTED VALUES <0.045 Negative 0.045 - 0.590 Consistent with Cardiac Damage > OR = 0.600 Critical Value Not every elevated troponin is indicative of GA. T hesevalues should be used with clinical judgement in examiningthe patient's clinical picture for diagnosis. To establisha diagnosis of GA versus myocardial injury, there must be ademonstrated rise and/ or fall in the troponin values, inaddition to ischemic symptoms, EKG changes, new regionalwall motion abnormality, and/or angiographical evidence. PLEASE NOTE: REFERENCE RANGES EDITED 12/30/1717-Feb-20183-Ueo-505322:10 CBC W/Diff, Automated Comments: CMP, CBCD, PT FOR DR BOOKER ARE FOR [facility] Fctqtvkfsv6065 [address] [place], [place], [address] Absolute Lymph 0.84 {X10_3/ul} (Normal) Range: 0.83-4.51 [...] 4.2-5.4 WBC 6.6 K/mm3 (Normal) Range: 4.4-11.0 8-Wgi-976199:10 Comprehensive Metabolic Profil Comments: CMP, CBCD, PT FOR DR BOOKER ARE FOR DR Sanchesluis [facility] [address]exntmgkj[address] [place], [address] GAP 8 (Normal) Range: 5-15 CO2 25.0 [...] criteria.Please note revised GLUCOSE reference range /02/2018. 4-Gnw-497087:10 Ferritin Comments: CMP, CBCD, PT FOR DR BOOKER ARE FOR [facility] Rrsrsrayfx9[address] [place], [address] FERRITIN 60 ng/mL (Normal) Range: 8-252 0-Xjh-001967:10 Iron+Iron Binding Capacity Comments: CMP, CBCD, PT FOR DR BOOKER ARE FOR [facility]ERSILVIOTwin [facility] [address]vctzacypv6437 [place], [address] IRON SATURATION 13.0 % (Abnormal) Range: 15.0-55.0 IRON 44 ug/dL (Abnormal) Range: 50-170 TIBC 339 ug/dL (Normal) Range: 250-450 3-Wwp-811964:10 Prothrombin Time w/INR Comments: CMP, CBCD, PT FOR DR BOOKER ARE FOR [facility]ILVIOTwin [facility] Rqydpireuf4067 [place], [address] INR 1.2 (Normal) PROTIME 15.3 s (Abnormal) Range: 11.7-14.9 77-Znj-638044:25 Basic Metabolic Profile (BMP) Comments: [facility] W[address]igzwaug[address] [place], [address] GAP 9 (Normal) Range: 5-15 CO2 [...] A.D.A. criteria.Please note revised GLUCOSE reference range yzqtsiskd25/02/2018. 14-Tnm-182626:25 CBC W/Diff, Automated Comments: [facility] [address]wnz[address] [place], [address] PATH REV Reviewed (Normal) Comments: Severe Macrocytic [...] CRITICAL VALUE VERIFIED. CALLED TO LELE SIN02/04/18 1149 Billie Hays.RESULTS READ BACK BY SAME . RBC 1.86 {M/mm3} (Abnormal) Range: 4.2-5.4 WBC 7.5 K/mm3 (Normal) Range: 4.4-11.0 46-Xfm-439360:25 Prothrombin Time w/INR Comments: [facility] F[address]yylvhit[address] [place], [place], [address] INR 3.7 (Abnormal) Comments: CRITICAL VALUE VERIFIED. CALLED TO LELE DILL02/04/18 1150 Billie Hays.RESULTS READ BACK BY SAME . PROTIME 37.0 s (Abnormal) Range: 11.7-14.9 73-Jry-593207:26 Basic Metabolic Profile (BMP) Comments: Send Results To: Gerry Swartz for Laboratory Test CKD, hypokalemiaWSumma Health Whfzarlxwx2266 [address] [place], [place], [address] GAP 8 (Normal) Range: 5-15 CO2 28.0 [...] criteria.Please note revised GLUCOSE reference range /02/2018. 76-Lwd-589080:25 CBC W/Diff, Automated Comments: Reason for Laboratory Test .[facility] [address] [place], [place], [address] Absolute Lymph 1.02 {X10_3/ul} (Normal) Range: 0.83-4.51 [...] :25 Ferritin Comments: Reason for Laboratory Test .[facility] [address] [place], [place], [address] FERRITIN 109 ng/mL (Normal) Range: 8-252 71-Klt-615959:25 Iron+Iron Binding Capacity Comments: Reason for Laboratory Test .[facility] Bvdbuauopb1815 [place], [address] IRON SATURATION 26.7 % (Normal) Range: 15.0-55.0 IRON 92 ug/dL (Normal) Range: 50-170 TIBC 345 ug/dL (Normal) Range: 250-450 5-Dio-178385:19 HgA1C , Office (30875) HgA1C , Office 5.1 % (Normal) Range: 4.6 - 7.1 5-Hgo-274181:18 Blood Glucose , Office (14552) Blood Glucose , Office 124 (Normal) 21-Jan-20180:00 Fluid/Washing See Note (Normal) Comments: [facility] [address] [place], [place], [address] Comments: Patient: GABBI ROLLE : 1945 (72/F) Acct Num: [id number] Phys: Leslie BALDWIN,Carlos Unit Num: [id number] Loc: US Specimen: [id number] Received: 01/24/18846 Spec Type: Flu id TISSUES TISSUES: THORACIC FLUID CYTOLOGY GROSS Received is 695 ml of laquita cloudy fluid labeled with the patient's name and DOBand designated per the requisition as t horacentesis. Submitted for cytology preparation including cell block. / 01/23/18 TC:5 CPT: 86652, 18744 CYTOLOGY STUDY Slides are reviewed. The specimen [...] Comments: RESULT(S) PREVIOUSLY REPORTED ON MANUAL REQUISITION DURINGDOWNTIME.[facility] [address] [place], [place], [address] PTT 42.2 s (Abnormal) Range: 24.1-36.2 20-Jan-20189:30 Prothrombin Time w/INR Comments: RESULT(S) PREVIOUSLY REPORTED ON MANUAL REQUISITION DURINGDOWNTIME.[facility] [address] [place], [place], [address] INR 1.3 (Normal) PROTIME 16.2 s (Abnormal) Range: 11.7-14.9 47-Lck-940450:55 Basic Metabolic Profile (BMP) Comments: [facility] Pnxerakeko[address] [place], [address] GAP 9 (Normal) Range: 5-15 [...] A.D.A. criteria.Please note revised GLUCOSE reference range jsrebgtbo97/02/2018. 49-Ili-144766:55 BNP,B-Type NATRIURETIC PEPTIDE Comments: [facility] [address] [place], [place], [address] B-TYPE MARY JO PEP 208.1 pg/mL (Abnormal) Range: 0-100 30-Shs-140622:55 CBC W/Diff, Automated Comments: [facility] [address]wrkoezslz68[address] [place], [address] Absolute Lymph 0.56 {X10_3/ul} (Abnormal) [...] Range: 4.4-11.0 :44 Protime w/INR Fingerstick Comments: [facility] LaboratoryPoint of Uynt[address] [place] [address] INR ISTAT 1.20 (Normal) Comments: Critical Value > 3.5 PROTIME ISTAT 13.7 {SEC} (Normal) Range: 11.9-14.4 Comments: Reference Range 11.9 - 14.4 :43 Bedside Glucose Comments: [facility] LaboratoryPoint of Zhvb[address] [place] [address] BEDSIDE GLU 147 mg/dL (Abnormal) Range: 70-110 Comments: MANAGEMENT OF PATIENT CARE PER NURSING PROTOCOL 93-Wtd-827787:01 CBC W/Diff, Automated Comments: Reason for Laboratory Test .[facility] Uskbemkdzp8884 [place], [address] Absolute Lymph 0.80 {X10_3/ul} (Abnormal) Range: [...] 4.2-5.4 WBC 7.1 K/mm3 (Normal) Range: 4.4-11.0 20-Lnf-810519:01 Comprehensive Metabolic Profil Comments: Reason for Laboratory Test .[facility] Mfzmxcqdeq[address] [place], [place], [address] GAP 6 (Normal) Range: 5-15 CO2 25.0 [...] criteria.Please note revised GLUCOSE reference range /02/2018. 25-Ncm-352263:01 Erythropoietin Comments: Reason for Laboratory Test .[facility] (refer to report for specific site)refer to report for address and phone number [facility] [id number] 105.6 m[iU]/mL (Abnormal) Range: 2.6-18.5 Comments: [employer] DxI 800 Immunoassay SystemPerformed at: - Lab[address] [id number] Director: Heron Almonte PhD, Phone: [phone] 43-Won-790468:01 Ferritin Comments: Reason for Laboratory Test .[facility] [address] [place], [place], [address] FERRITIN 69 ng/mL (Normal) Range: 8-252 57-Pgh-045929:01 Iron+Iron Binding Capacity Comments: Reason for Laboratory Test .[facility] X[address]riocc[address] [place], [place], [address] IRON SATURATION 19.7 % (Normal) Range: 15.0-55.0 IRON 77 ug/dL (Normal) Range: 50-170 TIBC 391 ug/dL (Normal) Range: 250-450 05-Sit-322279:06 Metabolic Panel, Comprehensive Comments: send to Dr. Mccurdy; PATIENT NOT FASTINGPERFORMED BY: LabCoAIRVEND Sgryri1900 [facility] [id number] ([address]) ALT (SGPT) 18 [iU]/L (Normal) Range: 0-32 [...] 8-27 Glucose 114 mg/dL (Abnormal) Range: 65-99 01-Qzv-828573:06 TSH (THYROID STIMULATING Comments: send results to Dr. Bowers; PATIENT NOT FASTINGPERFORMED BY: [facility] Xprjup6166 [facility] [id number] HORMONE) (63865) TSH 3.420 {uIU/mL} (Normal) Range: 0.450-4.500 57-Moi-092688:09 CBC W/Diff, Automated Comments: Reason for Laboratory Test .[facility] Xhjdciygdw94[address] [place], [place], [address] SMEAR COMMENT (Normal) Comments: SLIDE SCANNED - [...] 4.2-5.4 WBC 6.9 K/mm3 (Normal) Range: 4.4-11.0 32-Jeb-406169:09 Erythropoietin Comments: Reason for Laboratory Test .[facility] (refer to report for specific site)refer to report for address and phone number ERYTHROP [id number] 51.6 m[iU]/mL (Abnormal) Range: 2.6-18.5 Comments: [employer] DxI 800 Immunoassay SystemPerformed at: [facility] [address] [id number] Director: Heron Almonte PhD, Phone: [phone] 61-Kad-457567:09 Ferritin Comments: Reason for Laboratory Test .[facility] [address] [place], [place], [address] FERRITIN 43 ng/mL (Normal) Range: 8-252 01-Uew-667375:09 Iron+Iron Binding Capacity Comments: Reason for Laboratory Test .[facility] [address] [place], [place], [address] IRON SATURATION 10.4 % (Abnormal) Range: 15.0-55.0 IRON 56 ug/dL (Normal) Range: 50-170 Comments: Slight Hemolysis, Result may be falsely increased. TIBC 536 ug/dL (Abnormal) Range: 250-450 15-Kbh-253769:09 Retic Panel Comments: Reason for Laboratory Test .[facility] [address] [place], [place], [address] IPF 3.8 % (Normal) Range: 1.0-7.9 Comments: [...] 3.00-15.90 RETIC 5.76 % (Abnormal) Range: 0.5-1.5 79-Air-303291:55 Basic Metabolic Profile (BMP) Comments: 'TROP' Serial specimen #1, #2, #3, or #4: 1WSum[facility] Qpkhzvxqyt3156 [address] [place], [place], [address] GAP 9 (Normal) Range: 5-15 CO2 23.0 [...] A.D.A. criteria.Please note revised GLUCOSE reference range dftgdybtv76/02/2018. 06-Rrt-563570:55 BNP,B-Type NATRIURETIC PEPTIDE Comments: [facility] [address]vknvy[address] [place], [address] B-TYPE MARY JO PEP 217.5 pg/mL (Abnormal) Range: 0-100 68-Qxn-539804:55 CBC W/Diff, Automated Comments: [facility] Lpubcpswsw3933 [place], [address] MACROCYTE 1+ (Normal) POLYCHROMASIA 1+ [...] Range: 4.4-11.0 :55 Prothrombin Time w/INR Comments: [facility] [address]vxxpcbz[address] [place], [place], [address] INR 2.4 (Normal) PROTIME 26.4 s (Abnormal) Range: 11.7-14.9 68-Tai-315623:55 Troponin-I Comments: 'TROP' Serial specimen #1, #2, #3, or #4: [address] [place] [address] [address] [place], [place], [address] TROPONIN-I < 0.02 ng/mL (Normal) Comments: TROPONIN-I EXPECTED VALUES <0.05 NEGATIVE 0.06 - 0.59 AT RISK OF GA > OR = 0.60 SUGGEST GA 3-Ecf-705572:40 Basic Metabolic Profile (BMP) Comments: 'TROP' Serial specimen #1, #2, #3, or #4: [address] [place] [address] [place], [place], [address] GAP 7 (Normal) Range: 5-15 CO2 24.0 [...] A.D.A. criteria.Please note revised GLUCOSE reference range otgfvqzwh17/02/2018. 3-Err-060194:40 BNP,B-Type NATRIURETIC PEPTIDE Comments: [facility] [address]vmteqmul[address] [place], [place], [address] B-TYPE MARY JO PEP 226.6 pg/mL (Abnormal) Range: 0-100 5-Rsj-803065:40 CBC W/Diff, Automated Comments: [facility] Se[address]uzdqxyt[address] [place], [place], [address] SMEAR COMMENT SCANNED (Normal) Comments: 1+ ANISOCYTOSIS [...] Range: 4.4-11.0 :40 Prothrombin Time w/INR Comments: [address] [place], [address] INR 2.8 (Normal) PROTIME 29.7 s (Abnormal) Range: 11.7-14.9 4-Pci-959308:40 Troponin-I Comments: 'TROP' Serial specimen #1, #2, #3, or #4: [address] [place], [address] TROPONIN-I < 0.02 ng/mL (Normal) Comments: TROPONIN-I EXPECTED VALUES <0.05 NEGATIVE 0.06 - 0.59 AT RISK OF GA > OR = 0.60 SUGGEST GA 43-Inm-50296:53 CBC W/Diff, Automated Comments: CMP,LIPID,FERRITIN,IRON,TIBC FOR CIESAReason for Laboratory Test [facility]AT[facility] Rjvlpquacu0004 [address] [place], [place], [address] HYPOCHROMASIA 2+ (Normal) POLYCHROMASIA RARE (Normal) ANISO [...] Comments: CMP,LIPID,FERRITIN,IRON,TIBC FOR Christianoason for Laboratory Test ANEMIAWSumma Health [address]fdsavqyc60[address] [place], [address] Profil GAP 8 (Normal) Range: 5-15 CO2 24.0 mmol/L (Normal) Range: 21.0-32.0 CL 107 mmol/L (Normal) Range: 98-107 K 4.3 mmol/L (Normal) Range: 3.5-5.1 NA 139 mmol/L (Normal) Range: 136-145 T BILI 0.50 mg/dL (Normal) Range: 0.20-1.00 ALT 17 U/L (Normal) Range: 13-56 Comments: Please note revised ALT reference range dnydwofxd88/28/2018. ALK P 76 U/L (Normal) Range: 45-117 [...] A.D.A. criteria.Please note revised GLUCOSE reference range xtjcquxej24/02/2018. 07-Nir-54757:53 Ferritin Comments: CMP,LIPID,FERRITIN,IRON,TIBC FOR CIESAReason for Laboratory Test [facility] [address] [place], [address] FERRITIN 32 ng/mL (Normal) Range: 8-252 :53 Iron+Iron Binding Comments: CMP,LIPID,FERRITIN,IRON,TIBC FOR CIESAReason for Laboratory Test [facility] Tdwuobwxvg3645 [place], [address] Capacity IRON SATURATION 21.2 % (Normal) Range: 15.0-55.0 IRON 95 ug/dL (Normal) Range: 50-170 TIBC 449 ug/dL (Normal) Range: 250-450 :53 Lipid Profile Comments: CMP,LIPID,FERRITIN,IRON,TIBC FOR [facility] HOSPITALAReason for Laboratory Test [facility] [address]wrchbivha7265 [place], [address] VLDL 24 mg/dL (Normal) Range: 5-40 [...] mg/dL High Risk :54 Culture, Urine Comments: [facility] Qrwbzcxjog2717 [place], [address] CUUR See Note (Normal) Comments: Urine CultureBelow infection level. ORGANISM 1: Mixed Gram Positive OrganismsColony Count 1000-10,000 4-Yqd-951257:54 Urinalysis, Complete Comments: How was Urine Obtained? CLEAN [facility] [address]jgoes[address] [place], [address] MUCUS, URINE 0 SEEN {/hpf} [...] COLOR Yellow (Normal) :37 HgA1C , Office (63710) HgA1C , Office 5.5 % (Normal) Range: 4.6 - 7.1 :35 Blood Glucose , Office (39694) Blood Glucose , Office 170 (Normal) 97-Mep-09737:12 Influenza A&B Viral Comments: PATIENT NOT FASTINGPERFORMED BY: [facility] Wmrypn2997 [facility] [id number] Information: SRC:NL Culture (49818) Viral Culture,Rapid,Influenza FLUABN (Normal) Comments: Negative:No Influenza A or B detected. 78-Nwu-611196:40 Rapid Flu (11890 x 2) Influenza A Ag neg (Normal) 32-Kmp-651458:16 CBC W/Diff, Automated Comments: Reason for Laboratory Test [facility] V[address]sjkzuq34[address] [place], [address] ; Dr Khan Absolute Lymph [...] 4.2-5.4 WBC 9.6 K/mm3 (Normal) Range: 4.4-11.0 35-Llh-844385:16 Ferritin Comments: Reason for Laboratory Test [facility] Z[address]o4[address] [place], [address] FERRITIN 33 ng/mL (Normal) Range: 8-252 16-Fch-454340:16 Iron+Iron Binding Capacity Comments: Reason for Laboratory Test [facility] J[address]ftlzwwk40[address] [place], [address] IRON SATURATION 12.8 % (Abnormal) Range: 15.0-55.0 IRON 56 ug/dL (Normal) Range: 50-170 TIBC 436 ug/dL (Normal) Range: 250-450 54-Qoy-306793:16 Retic Panel Comments: Reason for Laboratory Test [facility] K[address]ndfzdqg7[address] [place], [address] IPF 3.1 % (Normal) Range: [...] (Abnormal) Range: 0.5-1.5 :16 HgA1C , Office (32077) Comments: 5.6 HgA1C , Office 5.6 % (Normal) Range: 4.6 - 7.1 :16 Blood Glucose , Office (83395) Blood Glucose , Office 145 (Normal) :22 PT (PROTHROMBIN TIME) (29856) Comments: Standing order; PATIENT NOT FASTINGPERFORMED BY: [employer]370 [employer] EducationUNC Hospitals Hills[facility] [id number] Prothrombin Time 11.5 {sec} (Normal) Range: 9.1-12.0 INR 1.1 (Normal) Range: 0.8-1.2 Comments: Reference interval is for non-anticoagulated patients. . Suggested INR therapeutic range for Vitamin K anta gonist therapy: Standard Dose (moderate intensity therapeutic range): 2.0 - 3.0 Higher intensity therapeutic range 2.5 - 3.5 :25 PT (PROTHROMBIN TIME) (16698) Comments: Standing order; PATIENT NOT FASTINGPERFORMED BY: [employer] Ejdmlt6846 [facility] [id number] Prothrombin Time 17.1 {sec} (Abnormal) Range: 9.1-12.0 INR 1.7 (Abnormal) Range: 0.8-1.2 Comments: Reference interval is for non-anticoagulated patients. . Suggested INR therapeutic range for Vitamin K anta gonist therapy: Standard Dose (moderate intensity therapeutic range): 2.0 - 3.0 Higher intensity therapeutic range 2.5 - 3.5 :55 Blood Gases by [facility] Comments: [place] [place] [address] SO2 ISTAT 95 % (Normal) Range: 95-99 TOTAL CO2 ISTAT 24 mmol/L (Normal) BE ISTAT -2 mmol/L (Normal) HCO3 ISTAT 23.1 mmol/L (Normal) Range: 22-26 PO2 I-STAT 77 {mmHG} (Normal) Range: 75-100 pCO2 - ISTAT 37.5 {mmHg} (Normal) Range: 35-45 pH - I-STAT 7.40 (Normal) Range: 7.35-7.45 BLD GAS TYPE ART (Normal) :35 Venous Blood Gas Comments: [address] [place] [place] [address] ISTAT 25 [...] ANTONIO (Normal) :32 Venous Blood Gas Comments: [address] [place] [place] [address] ISTAT 25 [...] 7.32-7.42 BLD GAS TYPE JUAN ANTONIO (Normal) [id number] Basic Metabolic Profile (BMP) Comments: Order Date: 03/26/17Order Info: [id number] - *BMPComments: Reason:[facility] [id number] [place], [place], [id number] GAP 6 (Normal) Range: 5-15 CO2 27.0 [...] HOMEOSTASIS per A.D.A. criteria.; ADDENDA: another doc [id number] CBC-Complete Blood Cnt No Diff Comments: Order Date: 03/26/17Order Info: [id number] - *CBC without DiffComments: Reason:[facility] [address] [place], [place], [id number] ; another doc MPV 12.4 fL (Abnormal) [...] 7.6 K/mm3 (Normal) Range: 4.4-11.0 :31 Iron (25671) Comments: PATIENT NOT FASTINGPERFORMED BY: [facility] Acffsz4967 [facility] [id number] Iron, Serum 70 ug/dL (Normal) Range: 27-139 :31 Ferritin (80598) Comments: PATIENT NOT FASTINGPERFORMED BY: [facility] Xqfmil0143 [facility] [id number] Ferritin, Serum 90 ng/mL (Normal) Range: 15-150 :31 Metabolic Panel, Comprehensive Comments: PATIENT NOT FASTINGPERFORMED BY: [facility] Qtnrao8594 [facility] [id number] (56287) ALT (SGPT) 16 [iU]/L (Normal) Range: 0-32 [...] Glucose, Serum 109 mg/dL (Abnormal) Range: 65-99 84-Ipy-90306:31 CBC WITH MANUAL DIFF (70809) Comments: PATIENT NOT FASTINGPERFORMED BY: [facility] Dwnzov6221 [facility] [id number] Immature Grans (Abs) 0.0 {x10E3/uL} Range: 0.0-0.1 [...] sent toHeron Hobbs M.D..PATIENT NOT FASTINGPERFORMED BY: [facility] [id number] 12:16 Range: 15-150 12-Wse-122806:16 CBC, PLATELETS & AUT DIFF Comments: A courtesy copy of this report has been sent toHeron Hobbs M.D..PATIENT NOT FASTINGPERFORMED BY: [facility] Ldmkfi6869 [facility] [id number] (85604) Immature Grans (Abs) 0.0 {x10E3/uL} (Normal) Range: [...] 3.77-5.28 WBC 9.1 {x10E3/uL} (Normal) Range: 3.4-10.8 45-Oed-058828:16 IRON & TOTAL IRON BINDING Comments: A courtesy copy of this report has been sent toHeron Hobbs M.D..PATIENT NOT FASTINGPERFORMED BY: [facility] Elfaqo6130 [facility] [id number] CAPACITY (16156) Iron Saturation 10 % (Abnormal) Range: 15-55 Iron, Serum 40 ug/dL (Normal) Range: 27-139 UIBC 358 ug/dL (Normal) Range: 118-369 Iron Bind.Cap.(TIBC) 398 ug/dL (Normal) Range: 250-450 88-Wfz-850777:43 Culture, Urine Comments: [facility] [address] [place], [address] CUUR See Note (Normal) Comments: [...] $ <=20 S(NF) indicates non-formulary drug at [facility]. Approval by Infectious Disease Specialist required before non- formulary drugs may be ordered and/or dispensed. 2-Eax-364518:00 Basic Metabolic Profile (BMP) Comments: [facility] [address] [place], [place], [id number] GAP 10 (Normal) Range: 5-15 CO2 23.0 [...] <126 mg/dLsuggests IMPAIRED HOMEOSTASIS per A.D.A. criteria. 2-Agm-880765:00 CBC W/Diff, Automated Comments: [facility] [address] [place], [address] ; ER Absolute Lymph 1.09 {X10_3/ul} (Normal) [...] 4.2-5.4 WBC 6.5 K/mm3 (Normal) Range: 4.4-11.0 2-Nsy-516317:00 Prothrombin Time w/INR Comments: [facility] [address] [place], [place], [address] INR 1.2 (Normal) PROTIME 14.6 s (Normal) Range: 11.7-14.9 9-Isv-327820:00 Microscopic Examination Comments: PATIENT WAS FASTINGPERFORMED BY: [facility]CoSaint [facility] DenvilleKmxhqq0370 [facility] [id number] Bacteria Few (Normal) Mucus Threads Present (Normal) Epithelial Cells (non renal) 0-10 {/hpf} (Normal) Range: 0 - 10 RBC 0-2 {/hpf} (Normal) Range: 0 - 2 WBC 0-5 {/hpf} (Normal) Range: 0 - 5 67-Ynz-70169:40 Urinalysis, Complete Comments: Order Date: 12/09/16Order Date: 12/09/16How was Urine Obtained? [facility] [address]rpj[address] [place], [place], [id number] MUCUS, URINE 0 SEEN {/hpf} (Normal) BACTERIA [...] (Normal) CLARITY Cloudy (Normal) COLOR Yellow (Normal) 34-Hap-61035:00 Prothrombin Time w/INR Comments: REDRAW. PREVIOUS SPECIMEN REJECTED DUE TOQNS. 12/09/1647 Jessica Allen.REDRAW. PREVIOUS SPECIMEN REJECTED DUE TOQNS. 12/09/1647 Jessica Allen.[facility] [address] [place], [address](440) INR 1.6 (Normal) PROTIME 18.1 s (Abnormal) Range: 11.7-14.9 11-Rez-19459:10 Basic Metabolic Profile (BMP) Comments: 'TROP' Serial specimen #1, #2, #3, or #4: [address] [place] [address] [place], [place], [address] GAP 11 (Normal) Range: 5-15 CO2 23.0 [...] A.D.A. criteria. :10 BNP,B-Type NATRIURETIC PEPTIDE Comments: [facility] [address]josrfmah[address] [place], [place], [address] B-TYPE MARY JO PEP 243.7 pg/mL (Abnormal) Range: 0-100 :10 CBC W/Diff, Automated Comments: [facility] Glrouugrcq55[address] [place], [place], [address] SMEAR COMMENT SCANNED (Normal) Comments: LYMPHOPENIA NOTED [...] Serial specimen #1, #2, #3, or #4: [facility] Grujgrzoxb5767 [address] [place], [place], [address] TROPONIN-I 0.43 ng/mL (Abnormal) Comments: TROPONIN-I EXPECTED VALUES <0.05 NEGATIVE 0.06 - 0.59 AT RISK OF GA > OR = 0.60 SUGGEST GA :02 Lactic Acid Comments: [facility] Zwqwjjlsgm76[address] [place], [place], [address] LACTIC ACID 2.2 mmol/L (Abnormal) Range: 0.4-2.0 89-Rtu-816669:45 Rapid Flu (72377 x 2) Comments: Negative Influenza A Ag neg a/b (Normal) 9-Tns-402001:00 MICROALBUMIN: CREATININE RATIO Comments: PATIENT WAS FASTINGPERFORMED BY: [employer]70 [facility] [id number] (53537) AND (67182) Microalb/Creat Ratio 29.7 {mg/g_creat} (Normal) Range: 0.0-30.0 Microalbumin, Urine 15.2 ug/mL (Normal) Creatinine, Urine 51.2 mg/dL (Normal) :00 URINALYSIS (79086) Comments: PATIENT WAS FASTINGPERFORMED BY: [employer]6370 [facility] [id number] Microscopic Examination See below: (Normal) Comments: Microscopic was indicated and was performed. Nitrite, Urine Negative (Normal) Urobilinogen,Semi-Qn 0.2 mg/dL (Normal) Range: 0.2-1.0 Bilirubin Negative (Normal) Occult Blood Trace (Abnormal) Ketones Negative (Normal) Glucose Negative (Normal) Protein Negative (Normal) WBC Esterase 2+ (Abnormal) Appearance Clear (Normal) Urine-Color Yellow (Normal) pH 6.0 (Normal) Range: 5.0-7.5 Specific [place] 1.010 (Normal) Range: 1.005-1.030 :00 TSH (97410) Comments: PATIENT WAS FASTINGPERFORMED BY: [facility]6370 [facility] [id number] TSH 3.850 {uIU/mL} (Normal) Range: 0.450-4.500 3-Ngl-431909:00 CBC, Platelets & Auto Diff Comments: PATIENT WAS FASTINGPERFORMED BY: [facility]6370 [facility] [id number] (80038) Immature Grans (Abs) 0.0 {x10E3/uL} (Normal) Range: [...] 3.77-5.28 WBC 8.8 {x10E3/uL} (Normal) Range: 3.4-10.8 0-Dxf-519013:00 Metabolic Panel, Comprehensive Comments: PATIENT WAS FASTINGPERFORMED BY: [facility] [id number] (08546) ALT (SGPT) 24 [iU]/L (Normal) Range: 0-32 [...] Glucose, Serum 106 mg/dL (Abnormal) Range: 65-99 37-Pnl-17211:10 CBC W/Diff, Automated Comments: [facility] [address] [place], [place], [address] Absolute Lymph 1.29 {X10_3/ul} (Normal) Range: 0.83-4.51 [...] (Normal) Range: 4.4-11.0 :08 HgA1C , Office (62064) HgA1C , Office 5.5 % (Normal) Range: 4.6 - 7.1 :08 Blood Glucose , Office (89453) Blood Glucose , Office 155 (Normal) 8-Gcr-799074:25 BNP,B-Type NATRIURETIC PEPTIDE Comments: [facility] [address] [place], [place], [address] ; another doc B-TYPE MARY JO PEP 147.4 pg/mL (Abnormal) Range: 0-100 :18 HgA1C , Office (61483) HgA1C , Office 6.0 % (Normal) Range: 4.6 - 7.1 :18 Blood Glucose , Office (75496) Blood Glucose , Office 109 (Normal) :21 HgA1C , Office (24048) HgA1C , Office 6.1 % (Normal) Range: 4.6 - 7.1 9-Aug-31951:21 Blood Glucose , Office (42766) Blood Glucose , Office 117 (Normal) 2-Rvm-402671:21 METABOLIC PANEL, Comments: PATIENT NOT FASTINGPERFORMED BY: [employer] [facility] [id number] Information: [id number] COMPREHENSIVE (12520) ALT (SGPT) 15 [iU]/L (Normal) Range: 0-32 [...] Glucose, Serum 92 mg/dL (Normal) Range: 65-99 4-Uvg-455836:21 Vitamin D Hydroxy (06280) Comments: PATIENT NOT FASTINGPERFORMED BY: Zygo CommunicationsSaint Clare's Hospital at DenvilleHvkwrs6947 [facility] [id number] Vitamin D, 25-Hydroxy 59.7 ng/mL (Normal) Range: 30.0-100.0 Comments: Vitamin D deficiency has been defined by the [place] ofMedicine and an Endocrine Society practice guideline as alevel of serum 25-OH vitamin D less than 20 ng/mL (1,2).The Endocrine Society went on to further define vitamin Dinsufficiency as a level between 21 and 29 ng/mL (2).1. IOM ([place] of Medicine). 2010. Dietary reference intakes for calcium and D. [place]: The National Academies Press.2. [place] MF, James MCGOWAN, Dolores MARTINEZ, et al. Evaluation, treatment, and prevention of vitamin D deficiency: an Endocrine Society clinical practice guideline. JCEM. 2010; 96(7):1911-30. -:06 HgA1C , Office (28939) HgA1C , Office 6.0 % (Normal) Range: 4.6 - 7.1 :15 HgA1C , Office (74152) HgA1C , Office 6.4 % (Normal) Range: 4.6 - 7.1 :31 HgA1C , Office (79714) HgA1C , Office 6.0 % (Normal) Range: 4.6 - 7.1 :04 HgA1C , Office (84795) HgA1C , Office 6.0 % (Normal) Range: 4.6 - 7.1 :09 HgA1C , Office (34406) HgA1C , Office 6.0 % (Normal) Range: 4.6 - 7.1 :32 HgA1C , Office (87290) HgA1C , Office 6.2 % (Normal) Range: 4.6 - 7.1 :24 HgA1C , Office (87219) HgA1C , Office 6.2 % (Normal) Range: 4.6 - 7.1 :59 PT (Prothrobim Time) Comments: PATIENT NOT FASTINGPERFORMED BY: [facility] Eureov4780 [facility] [id number] Information: [id number] (60501) Prothrombin Time 25.2 {sec} (Abnormal) Range: 9.1-12.0 INR 2.4 (Abnormal) Range: 0.8-1.2 Comments: Reference interval is for non-anticoagulated patients. . Suggested INR therapeutic range for Vitamin K anta gonist therapy: Standard Dose (moderate intensity therapeutic range): 2.0 - 3.0 Higher intensity therapeutic range 2.5 - 3.5 :22 PT (Prothrobim Time) Comments: PATIENT NOT FASTINGPERFORMED BY: [place] [address] [facility] [id number] Information: [id number] (18093) Prothrombin Time 22.4 {sec} (Abnormal) Range: 9.1-12.0 INR 2.2 (Abnormal) Range: 0.8-1.2 Comments: Reference interval is for non-anticoagulated patients. . Suggested INR therapeutic range for Vitamin K anta gonist therapy: Standard Dose (moderate intensity therapeutic range): 2.0 - 3.0 Higher intensity therapeutic range 2.5 - 3.5 81-Unf-372980:39 HgA1C , Office (35065) HgA1C , Office 6.5 % (Normal) Range: 4.6 - 7.1 13-Ggp-058415:37 PT (Prothrobim Time) Comments: PATIENT NOT FASTINGPERFORMED BY: [place] [address]24[address] [facility] [id number] Information: [id number] (20207) Prothrombin Time 20.7 {sec} (Abnormal) Range: 9.1-12.0 INR 1.9 (Abnormal) Range: 0.8-1.2 Comments: Reference interval is for non-anticoagulated patients. . Suggested INR therapeutic range for Vitamin K anta gonist therapy: Standard Dose (moderate intensity therapeutic range): 2.0 - 3.0 Higher intensity therapeutic range 2.5 - 3.5 63-Emi-319199:34 BNTP (23740) Comments: PATIENT NOT FASTINGPERFORMED BY: [place] [address]24[address] [facility] [id number] B-Type Natriuretic Peptide 156.2 pg/mL (Abnormal) Range: 0.0-100.0 97-Afi-381894:34 PT (Prothrobim Time) (67194) Comments: PATIENT NOT FASTINGPERFORMED BY: [facility]6370 [facility] [id number] Prothrombin Time 13.1 {sec} (Abnormal) Range: 9.1-12.0 INR 1.3 (Abnormal) Range: 0.8-1.2 Comments: Reference interval is for non-anticoagulated patients. . Suggested INR therapeutic range for Vitamin K anta gonist therapy: Standard Dose (moderate intensity therapeutic range): 2.0 - 3.0 Higher intensity therapeutic range 2.5 - 3.5 32-Rxe-496607:34 CULTURE, SPUTUM (73464) Comments: PATIENT NOT FASTINGPERFORMED BY: [facility]6370 [facility] [id number] Lower Respiratory Culture Final report (Normal) Result 1 RRF (Normal) Comments: Routine respiratory anisa 84-Xee-884616:20 PT (Prothrobim Time) Comments: PATIENT NOT FASTINGPERFORMED BY: [facility]6370 [facility] [id number] Information: [id number] (80422) Prothrombin Time 21.0 {sec} (Abnormal) Range: 9.1-12.0 INR 2.0 (Abnormal) Range: 0.8-1.2 Comments: Reference interval is for non-anticoagulated patients. . Suggested INR therapeutic range for Vitamin K anta gonist therapy: Standard Dose (moderate intensity therapeutic range): 2.0 - 3.0 Higher intensity therapeutic range 2.5 - 3.5 42-Kqs-784030:11 PT (Prothrobim Time) Comments: PATIENT NOT FASTINGPERFORMED BY: [facility] [id number] Information: [id number] (33483) Prothrombin Time 15.3 {sec} (Abnormal) Range: 9.1-12.0 INR 1.5 (Abnormal) Range: 0.8-1.2 Comments: Reference interval is for non-anticoagulated patients. . Suggested INR therapeutic range for Vitamin K anta gonist therapy: Standard Dose (moderate intensity therapeutic range): 2.0 - 3.0 Higher intensity therapeutic range 2.5 - 3.5 :45 HgA1C , Office (30228) HgA1C , Office 6.5 % (Normal) Range: 4.6 - 7.1 :18 PT (Prothrobim Time) Comments: PATIENT NOT FASTINGPERFORMED BY: [facility]6370 [facility] [id number] Information: [id number] (59269) Prothrombin Time 20.0 {sec} (Abnormal) Range: 9.1-12.0 INR 1.9 (Abnormal) Range: 0.8-1.2 Comments: Reference interval is for non-anticoagulated patients. . Suggested INR therapeutic range for Vitamin K anta gonist therapy: Standard Dose (moderate intensity therapeutic range): 2.0 - 3.0 Higher intensity therapeutic range 2.5 - 3.5 :24 HgA1C , Office (63265) HgA1C , Office 6.1 % (Normal) Range: 4.6 - 7.1 :53 HgA1C , Office (45935) HgA1C , Office 6.2 % (Normal) Range: 4.6 - 7.1 :05 CBC WITH MANUAL DIFF Comments: today; PATIENT NOT FASTINGPERFORMED BY: [place] [address]24[address] [facility] [id number] Information: [id number] (43364) Hematology Comments: Note: (Normal) Comments: Verified by [...] 3.77-5.28 WBC 9.2 {x10E3/uL} (Normal) Range: 4.0-10.5 30-Iym-841058:30 HgA1C , Office (30643) HgA1C , Office 6.1 % (Normal) Range: 4.6 - 7.1 04-Tpg-812492:33 PT (Prothrobim Time) Comments: PATIENT NOT FASTINGPERFORMED BY: [place] 9[address]2470 [facility] [id number] Information: [id number] (81237) Prothrombin Time 17.9 {sec} (Abnormal) Range: 9.1-12.0 INR 1.7 (Abnormal) Range: 0.8-1.2 Comments: Reference interval is for non-anticoagulated patients. . Suggested INR therapeutic range for Vitamin K anta gonist therapy: Standard Dose (moderate intensity therapeutic range): 2.0 - 3.0 Higher intensity therapeutic range 2.5 - 3.5 97-Htu-885390:27 PT (Prothrobim Time) Comments: PATIENT NOT FASTINGPERFORMED BY: [facility] [id number] Information: [id number] (04246) Prothrombin Time 26.3 {sec} (Abnormal) Range: 9.1-12.0 INR 2.6 (Abnormal) Range: 0.8-1.2 Comments: Reference interval is for non-anticoagulated patients. . Suggested INR therapeutic range for Vitamin K anta gonist therapy: Standard Dose (moderate intensity therapeutic range): 2.0 - 3.0 Higher intensity therapeutic range 2.5 - 3.5 4-Mkx-493455:01 BILAT SCRN DIGITAL & CAD Radiology Report [...] Cho M.D.July 25, 2012 at 11:23:11 AM [id number] Signed GP/GP If you are the referring physician and would like to consult with theradiologist who provided this interpretation, please contact Clinton Ignacio at [phone]. If this radiologist is unavailable, youwill be directed to another radiologist to assist. If you are a patient with a question regarding this report, pleasecontactyour referring physician directly. Professional Interpretation Provided By: [employer], Phone , These documents contain leg ally [...] 07/25/12 1128 Sign by: Irvin Cho MD 57-Zgg-537743:44 HgA1C , Office (20698) HgA1C , Office 6.6 % (Normal) Range: 4.6 - 7.1 :44 Blood Glucose , Office (67099) Blood Glucose , Office 101 (Normal) :02 PT (Prothrobim Time) Comments: standing order; PATIENT NOT FASTINGPERFORMED BY: [facility] Gladwin6370 [facility] [id number] Information: [id number] (03625) Prothrombin Time 20.6 {sec} (Abnormal) Range: 9.1-12.0 INR 2.0 (Abnormal) Range: 0.8-1.2 Comments: Reference interval is for non-anticoagulated patients. . Suggested INR therapeutic range for Vitamin K anta gonist therapy: Standard Dose (moderate intensity therapeutic range): 2.0 - 3.0 Higher intensity therapeutic range 2.5 - 3.5 31-Exq-782550:09 HgA1C , Office (81785) HgA1C , Office 6.1 % (Normal) Range: 4.6 - 7.1 89-Kvy-63093:00 Prothrombin Time (PT) Comments: PATIENT NOT FASTINGPERFORMED BY: [facility] [id number] Prothrombin Time 21.7 {sec} (Abnormal) Range: 9.1-12.0 INR 2.1 (Abnormal) Range: 0.8-1.2 Comments: Reference interval is for non-anticoagulated patients. . Suggested INR therapeutic range for Vitamin K anta gonist therapy: Standard Dose (moderate intensity therapeutic range): 2.0 - 3.0 Higher intensity therapeutic range 2.5 - 3.5 :42 PT (PROTHROMBIN TIME) Comments: PATIENT NOT FASTINGPERFORMED BY: [facility]6370 [facility] [id number] Information: [id number] (56620) Prothrombin Time 18.7 {sec} (Abnormal) Range: 9.1-12.0 INR 1.8 (Abnormal) Range: 0.8-1.2 Comments: Reference interval is for non-anticoagulated patients. . Suggested INR therapeutic range for Vitamin K anta gonist therapy: Standard Dose (moderate intensity therapeutic range): 2.0 - 3.0 Higher intensity therapeutic range 2.5 - 3.5 61-Ves-41482:06 PT (PROTHROMBIN TIME) Comments: PATIENT NOT FASTINGPERFORMED BY: [place] 9482470 [facility] [id number] Information: [id number] (11193) Prothrombin Time 21.7 {sec} (Abnormal) Range: 9.1-12.0 INR 2.0 (Abnormal) Range: 0.8-1.2 Comments: Reference interval is for non-anticoagulated patients. . Suggested INR therapeutic range for Vitamin K anta gonist therapy: Standard Dose (moderate intensity therapeutic range): 2.0 - 3.0 Higher intensity therapeutic range 2.5 - 3.5 25-Dcq-117521:01 ERYTHROPOIETIN (52703) Comments: PATIENT NOT FASTINGPERFORMED BY: [facility] [id number] Erythropoietin 38.7 m[iU]/mL (Abnormal) Range: 4.2-27.8 39-Rkb-840809:01 Vitamin D Hydroxy (50620) Comments: PATIENT NOT FASTINGPERFORMED BY: [place] 9482470 [facility] [id number] Vitamin D, 25-Hydroxy 52.5 ng/mL (Normal) Range: 30.0-100.0 Comments: Vitamin D deficiency has been defined by the [place] ofMedicine and an Endocrine Society practice guideline as alevel of serum 25-OH vitamin D less than 20 ng/mL (1,2).The Endocrine Society went on to further define vitamin Dinsufficiency as a level between 21 and 29 ng/mL (2).1. IOM ([place] of Medicine). 2010. Dietary reference intakes for calcium and D. [place]: The National Academies Press.2. [place] MF, James MCGOWAN, Dolores MARTINEZ, et al. Evaluation, treatment, and prevention of vitamin D deficiency: an Endocrine Society clinical practice guideline. JCEM. 2010; 96(7):1911-30. 85-Qnx-239129:01 VITAMIN B-12 (CYANOCOBALAMIN) Comments: PATIENT NOT FASTINGPERFORMED BY: [employer]70 [address] [facility] [id number] (23525) Vitamin B12 779 pg/mL (Normal) Range: 211-946 27-Gzv-601390:01 RETICULOCYTE COUNT MANUL Comments: PATIENT NOT FASTINGPERFORMED BY: CB [employer]rp Nythug8026 [facility] [facility] [id number] (00483) Reticulocyte Count 1.9 % (Normal) Range: 0.5-3.0 54-Cof-910275:01 LDH (LD) (LACTATE DEHYDROGENASE) Comments: PATIENT NOT FASTINGPERFORMED BY: [employer] Qksmrw5358 [address] [facility] [id number] (91587) LDH 174 [iU]/L (Normal) Range: 0-214 40-Tod-506791:01 IRON BINDING CAPACITY Comments: PATIENT NOT FASTINGPERFORMED BY: [employer] Boookf7853 [facility] [id number] Information: [id number] (TIBC) (59286) Iron Saturation 9 % (Abnormal) Range: 15-55 Iron, Serum 35 ug/dL (Normal) Range: 35-155 UIBC 355 ug/dL (Normal) Range: 150-375 Iron Bind.Cap.(TIBC) 390 ug/dL (Normal) Range: 250-450 38-Php-137413:01 FERRITIN (33306) Comments: PATIENT NOT FASTINGPERFORMED BY: [facility] [id number] Ferritin, Serum 59 ng/mL (Normal) Range: 13-150 :47 HgA1C , Office (95356) HgA1C , Office 6.2 % (Normal) Range: 4.6 - 7.1 :48 Prothrombin Time (PT) Comments: PERFORMED BY: [place] 9482470 [facility] [id number] Prothrombin Time 20.1 {sec} (Abnormal) Range: 9.1-12.0 Comments: Please note reference interval change INR 1.9 (Abnormal) Range: 0.8-1.2 Comments: Reference interval is for non-anticoagulated patients. . Suggested INR therapeutic range for Vitamin K anta gonist therapy: Standard Dose (moderate intensity therapeutic range): 2.0 - 3.0 Higher intensity therapeutic range 2.5 - 3.5 :56 HgA1C , Office (68326) HgA1C , Office 6.4 % (Normal) Range: 4.6 - 7.1 :56 Blood Glucose , Office (35879) Blood Glucose , Office 111 (Normal) :48 PT (PROTHROMBIN TIME) Comments: PATIENT NOT FASTINGPERFORMED BY: [facility] [id number] Information: [id number] (65689) Prothrombin Time 28.0 {sec} (Abnormal) Range: 9.1-12.0 Comments: Please note reference interval change INR 2.6 (Abnormal) Range: 0.8-1.2 Comments: Reference interval is for non-anticoagulated patients. . Suggested INR therapeutic range for Vitamin K anta gonist therapy: Standard Dose (moderate intensity therapeutic range): 2.0 - 3.0 Higher intensity therapeutic range 2.5 - 3.5 3-Yov-026931:42 BILAT SCRN DIGITAL & CAD Radiology Report [...] 07/20/11 1305 Sign by: Irvin Cho MD 1-Qfr-705896:14 PT (PROTHROMBIN TIME) Comments: PATIENT NOT FASTINGPERFORMED BY: [employer]6370 [employer] Co[employer] EducationUNC Hospitals [facility] [id number] Information: [id number] (35097) Prothrombin Time 37.0 {sec} (Abnormal) Range: 9.1-12.0 Comments: Please note reference interval change INR 3.5 (Abnormal) Range: 0.8-1.2 Comments: Reference interval is for non-anticoagulated patients. . Suggested INR therapeutic range for Vitamin K anta gonist therapy: Standard Dose (moderate intensity therapeutic range): 2.0 - 3.0 Higher intensity therapeutic range 2.5 - 3.5 6-Yqs-997655:15 URIC ACID BLOOD (17791) Comments: PATIENT NOT FASTINGPERFORMED BY: Zy[employer] CommunicationsSaint Clare's Hospital at DenvilleJuhyle3762 [place] [employer] BoatworksNovant Health Matthews Medical Center [id number] Information: [id number],2ND ORDER Uric Acid, Serum 5.3 mg/dL (Normal) Range: 2.5-7.1 Comments: Therapeutic target for gout patients: <6.0 98-Iao-948387:26 FECAL OCCULT- Tubes sent home (10319) FECAL OCCULT HGB ASSAY, QUAL, 1-3 SIMULTANEOU negative (Normal) 89-Adj-125344:37 FERRITIN (28637) Comments: PATIENT NOT FASTINGPERFORMED BY: [employer] Fpokcn1450 [address] [place] [id number] Ferritin, Serum 109 ng/mL (Normal) Range: 13-150 50-Tqi-108950:37 IRON (21468) Comments: PATIENT NOT FASTINGPERFORMED BY: [employer]6370 [address] OB[address] Boatworksbl[place] [id number] Iron, Serum 46 ug/dL (Normal) Range: 35-155 67-Sys-197404:37 FOLIC ACID SERUM (17248) Comments: PATIENT NOT FASTINGPERFORMED BY: [employer] Wmpwaw1607 [address] OBX BoatworksUnc Health Southeasternin [place] [id number] Folate (Folic Acid), Serum >19.9 ng/mL (Normal) Comments: Indeterminate: 2.2 - 3.0 Deficient: <2.2 89-Ujv-132959:37 RETICULOCYTE COUNT MANUL Comments: PATIENT NOT FASTINGPERFORMED BY: [employer]6370 [address] OBX BoatworksUnc Health Southeasternin [place] [id number] (25754) Reticulocyte Count 1.6 % (Normal) Range: 0.5-3.0 01-Kgt-850771:37 LDH (LD) (LACTATE DEHYDROGENASE) Comments: PATIENT NOT FASTINGPERFORMED BY: [id number] [facility] [place] [id number] ([id number]) LDH 179 [iU]/L (Normal) Range: 0-214 08-Bzz-054740:37 VITAMIN B-12 (CYANOCOBALAMIN) Comments: PATIENT NOT FASTINGPERFORMED BY: [facility] [id number] Goins [facility] [place] [id number] ([id number]) Vitamin B12 668 pg/mL (Normal) Range: 211-946 16-Syx-158486:37 TSH ([id number]) Comments: PATIENT NOT FASTINGPERFORMED BY: [facility]CoSaint [facility] at DenvilleMahyau8[facility] [id number] TSH 2.500 {uIU/mL} (Normal) Range: 0.450-4.500 28-Aek-756240:37 CBC WITH MANUAL DIFF Comments: PATIENT NOT FASTINGPERFORMED BY: LabCoSaint Clare's Hospital at DenvilleIsxdtp3875 [facility] [id number] Information: [id number] (66397) Immature Grans (Abs) 0.0 {x10E3/uL} (Normal) Range: [...] (Normal) Range: 4.0-10.5 :37 Uric Acid Blood (89505) Comments: PATIENT NOT FASTINGPERFORMED BY: Y[facility]6370 [facility] [id number] Uric Acid, Serum 10.0 mg/dL (Abnormal) Range: 2.5-7.1 Comments: Therapeutic target for gout patients: <6.0 :45 Blood Glucose , Office (04161) Blood Glucose , Office 101 (Normal) :45 HgA1C , Office (16100) HgA1C , Office 6.3 % (Normal) Range: 4.6 - 7.1 :25 PT (Prothrobim Time) Comments: Protime/INR Standing Order; PATIENT NOT FASTINGPERFORMED BY: YAO [place] 5312870 [facility] [id number] Information: [id number] (60937) Prothrombin Time 28.9 {sec} (Abnormal) Range: 8.7-11.5 INR 2.7 (Abnormal) Range: 0.8-1.2 Comments: Reference interval is for non-anticoagulated patients. . Suggested INR therapeutic range for Vitamin K anta gonist therapy: Standard Dose (moderate intensity therapeutic range): 2.0 - 3.0 Higher intensity therapeutic range 2.5 - 3.5 :28 PT (PROTHROMBIN TIME) Comments: PATIENT NOT FASTINGPERFORMED BY: Y[facility]6370 [facility] [id number] Information: [id number] (91638) Prothrombin Time 24.6 {sec} (Abnormal) Range: 8.7-11.5 INR 2.3 (Abnormal) Range: 0.8-1.2 Comments: Reference interval is for non-anticoagulated patients. . Suggested INR therapeutic range for Vitamin K anta gonist therapy: Standard Dose (moderate intensity therapeutic range): 2.0 - 3.0 Higher intensity therapeutic range 2.5 - 3.5 : Potassium, Serum 5.2 mmol/L (Normal) Comments: PERFORMED BY: YAO [address] [place] [id number] Range: 3.5-5.2 2-Nmz-863088:42 Prothrombin Time (PT) Comments: PERFORMED BY: [facility]6370 [facility] [id number] Prothrombin Time 12.8 {sec} (Abnormal) Range: 8.7-11.5 INR 1.2 (Normal) Range: 0.8-1.2 Comments: Reference interval is for non-anticoagulated patients. . Suggested INR therapeutic range for Vitamin K anta gonist therapy: Standard Dose (moderate intensity therapeutic range): 2.0 - 3.0 Higher intensity therapeutic range 2.5 - 3.5 84-Krr-919920:08 Prothrombin Time (PT) Comments: PERFORMED BY: [facility]6370 [facility] [id number] Prothrombin Time 19.2 {sec} (Abnormal) Range: 8.7-11.5 INR 1.8 (Abnormal) Range: 0.8-1.2 Comments: Reference interval is for non-anticoagulated patients. . Suggested INR therapeutic range for Vitamin K anta gonist therapy: Standard Dose (moderate intensity therapeutic range): 2.0 - 3.0 Higher intensity therapeutic range 2.5 - 3.5 :19 Vitamin D Hydroxy (90776) Comments: PATIENT WAS FASTINGPERFORMED BY: [facility]6370 [facility] [id number] Vitamin D, 25-Hydroxy 43.1 ng/mL (Normal) Range: 32.0-100.0 Comments: Effective July 09, 2011 Vitamin D, 25-Hydroxy reference intervals will be changing to 30-100. .Recent studies consider the lower li osbaldo of 32.0 ng/mL to be athreshold for optimal health.Ye JARVIS. J Nutr. 2004;135(2):317-22. :19 MICROALBUMIN: CREATININE RATIO Comments: PATIENT WAS FASTINGPERFORMED BY: [place] 9482470 [facility] [id number] (64691) AND (98316) Microalb/Creat Ratio 24.6 {mg/g_creat} (Normal) Range: 0.0-30.0 Creatinine, Urine 23.6 mg/dL (Normal) Range: 15.0-278.0 Microalbumin, Urine 5.8 ug/mL (Normal) Range: 0.0-17.0 :19 LIPID PANEL (87310) Comments: PATIENT WAS FASTINGPERFORMED BY: [employer] Knpuqu3515 [facility] [id number] LDL/HDL Ratio 1.5 {ratio_units} (Normal) Range: 0.0-3.2 [...] MANUAL DIFF Comments: PATIENT WAS FASTINGPERFORMED BY: Bueda Clyfpj0886 [facility] [id number] Information: [id number] CC:[id number] (04252) Immature Grans (Abs) 0.0 {x10E3/uL} (Normal) Range: [...] COMPREHENSIVE Comments: PATIENT WAS FASTINGPERFORMED BY: [facility]Co Hzhifu9122 [facility] [id number]; appt 06/05/11 (75193) ALT (SGPT) 16 [iU]/L (Normal) Range: 0-40 [...] Range: 65-99 :59 Blood Glucose , Office (78606) Blood Glucose , Office 129 (Normal) :04 Prothrombin Time (PT) Comments: PERFORMED BY: YAO [facility] SystemsUNC [facility] [id number] Prothrombin Time 25.1 {sec} (Abnormal) Range: 8.7-11.5 INR 2.4 (Abnormal) Range: 0.8-1.2 Comments: Reference interval is for non-anticoagulated patients. . Suggested INR therapeutic range for Vitamin K anta gonist therapy: Standard Dose (moderate intensity therapeutic range): 2.0 - 3.0 Higher intensity therapeutic range 2.5 - 3.5 :34 PT (PROTHROMBIN TIME) Comments: PATIENT NOT FASTINGPERFORMED BY: YAO [employer]70 [employer] Coiffeurs' EducationUNC Hospitals Hillsborough Campus [id number] Information: [id number],NO DRAW FEE 2ND ORD ER (44998) Prothrombin Time 30.5 {sec} (Abnormal) Range: 8.7-11.5 INR 2.9 (Abnormal) Range: 0.8-1.2 Comments: Reference interval is for non-anticoagulated patients. . Suggested INR therapeutic range for Vitamin K anta gonist therapy: Standard Dose (moderate intensity therapeutic range): 2.0 - 3.0 Higher intensity therapeutic range 2.5 - 3.5 :38 Vitamin D Hydroxy (28368) Comments: today and 3 mos; PATIENT NOT FASTINGPERFORMED BY: [employer] FinestrellaUNC Hospitals Hillsborough Campus [id number] Information: [id number] Vitamin D, 25-Hydroxy 56.7 ng/mL (Normal) Range: 32.0-100.0 Comments: Recent studies consider the lower limit of 32.0 ng/mL to be athreshold for optimal health.Ye JARVIS. J Nutr. 2004;135(2):317-22. 88-Oct-805302:00 MICROALBUMIN: CREATININE Comments: PATIENT NOT FASTINGPERFORMED BY: LabKickAss CandySaint Clare's Hospital at DenvilleSqoors5646 [facility] [id number] Information: [id number] RATIO (43361) AND (49567) Microalb/Creat Ratio 10.0 {mg/g_creat} (Normal) Range: 0.0-30.0 Microalbumin, Urine 4.3 ug/mL (Normal) Range: 0.0-17.0 Creatinine, Urine 43.2 mg/dL (Normal) Range: 15.0-278.0 :32 Blood Glucose , Office (91247) Blood Glucose , Office 137 (Normal) :32 HgA1C , Office (75339) HgA1C , Office 6.1 % (Normal) Range: 4.6 - 7.1 :38 Prothrombin Time (PT) Comments: PERFORMED BY: LabCoMountain View Regional Medical CenterOznqld0759 [facility] [id number] Prothrombin Time 26.7 {sec} (Abnormal) Range: 8.7-11.5 INR 2.5 (Abnormal) Range: 0.8-1.2 Comments: Reference interval is for non-anticoagulated patients. . Suggested INR therapeutic range for Vitamin K anta gonist therapy: Standard Dose (moderate intensity therapeutic range): 2.0 - 3.0 Higher intensity therapeutic range 2.5 - 3.5 :21 HgA1C , Office (59971) HgA1C , Office 6.0 % (Normal) Range: 4.6 - 7.1 :21 Blood Glucose , Office (22605) Blood Glucose , Office 118 (Normal) :10 DEXA BONE DENSITY STUDY (HP) Radiology Report See Note (Normal) Comments: CLINICAL:This is a 65-year-old female patient for post menopausal screening. EXAMINATION:DUAL ENERGY X-RAY ABSORPTIOMETRY / DEXA. TECHNIQUE:Bone Density Measurements (BMD) of lumbar spine and bilateral hips wereobtained using a [employer] scanner.. COMPARISON:None. FINDINGS: Lumbar Spine (L1-L4): g/cm2 [...] on 07/19/10 0726 Sign by: Irvin Cho 41-Wom-43977:00 BILAT SCRN DIGITAL & CAD Radiology Report [...] on 07/19/10 1052 Sign by: ELAINE NIEVES 30-Jrr-50957:59 Prothrombin Time (PT) Comments: PERFORMED BY: YAO [employer]6370 [employer] GeodynamicsUNC Hospitals Hillsborough Campus [id number] Prothrombin Time 30.2 {sec} (Abnormal) Range: 8.7-11.5 INR 2.8 (Abnormal) Range: 0.8-1.2 Comments: Reference interval is for non-anticoagulated patients. . Suggested INR therapeutic range for Vitamin K anta gonist therapy: Standard Dose (moderate intensity therapeutic range): 2.0 - 3.0 Higher intensity therapeutic range 2.5 - 3.5 15-Hhi-725198:36 PT (Prothrobim Time) Comments: standing order; PATIENT NOT FASTINGPERFORMED BY: Zygo CommunicationsSaint Clare's Hospital at DenvilleKdzlpp6232 [facility] [id number] Information: [id number] (99123) Prothrombin Time 17.5 {sec} (Abnormal) Range: 8.7-11.5 INR 1.6 (Abnormal) Range: 0.8-1.2 Comments: Reference interval is for non-anticoagulated patients. . Suggested INR therapeutic range for Vitamin K anta gonist therapy: Standard Dose (moderate intensity therapeutic range): 2.0 - 3.0 Higher intensity therapeutic range 2.5 - 3.5 :22 Prothrombin Time (PT) Comments: PERFORMED BY: Zygo CommunicationsSaint Clare's Hospital at DenvilleUwckng3577 [facility] [id number] Prothrombin Time 19.0 {sec} (Abnormal) Range: 8.7-11.5 INR 1.8 (Abnormal) Range: 0.8-1.2 Comments: Reference interval is for non-anticoagulated patients..Suggested INR therapeutic range for Vitamin Kantagonist therapy:Standard Dose (moderate intensitytherapeutic range): 2.0 - 3.0Higher intensity therapeutic range 2.5 - 3.5 :24 HgA1C , Office (25121) HgA1C , Office 6.6 % (Normal) Range: 4.6 - 7.1 :24 Blood Glucose , Office (81088) Blood Glucose , Office 128 (Normal) :25 CBC With Differential/Platelet Comments: PATIENT WAS FASTINGPERFORMED BY: LabCoSaint Clare's Hospital at DenvilleZhjiyu4365 [facility] [id number] Immature Grans (Abs) 0.0 {x10E3/uL} (Normal) Range: [...] 3.80-5.10 WBC 7.0 {x10E3/uL} (Normal) Range: 4.0-10.5 74-Eoq-43024:25 Comp. Metabolic Panel (14) Comments: PATIENT WAS FASTINGPERFORMED BY: LabCoSaint Clare's Hospital at DenvilleMctksm5480 [facility] [id number] ALT (SGPT) 18 [iU]/L (Normal) Range: 0-40 [...] With LDL/HDL Comments: PATIENT WAS FASTINGPERFORMED BY: [facility]utonixNov[facility] [id number] Ratio LDL Cholesterol Calc 67 mg/dL (Normal) [...] Time (PT) Comments: PATIENT WAS FASTINGPERFORMED BY: [employer]6370 [facility] [id number] INR 1.7 (Abnormal) Range: 0.8-1.2 Comments: Reference interval is for non-anticoagulated patients..Suggested INR therapeutic range for Vitamin Kantagonist therapy:Standard Dose (moderate intensitytherapeutic range): 2.0 - 3.0Higher intensity therapeutic range 2.5 - 3.5 Prothrombin Time 18.0 {sec} Range: 8.7-11.5 (Abnormal) 02-May-2010 Vitamin D, 25-Hydroxy 44.2 ng/mL (Normal) Comments: PATIENT WAS FASTINGPERFORMED BY: [facility]asterMymich[facility] Gladwin6370 [facility] [id number] 9:25 Range: 32.0-100.0 Comments: Recent studies consider the lower limit of 32.0 ng/mL to be athreshold for optimal health.Ye JARVIS. J Nutr. 2004;135(2):317-22. 26-Gkv-496914:08 Uric Acid, 24 hr Urine Comments: PERFORMED BY: [facility] Centerlin6370 [facility] [id number] Information: 02/13@6AM 02/14@545AM Uric Acid, Urine 24hr 502.4 {mg/24_hr} (Normal) Range: 250.0-750.0 Uric Acid, Urine 15.7 mg/dL (Normal) 51-Mdm-092938:21 Prothrombin Time (PT) Comments: PERFORMED BY: [employer] Nbyqoa8166 [facility] [id number] Prothrombin Time 24.1 {sec} (Abnormal) Range: 8.7-11.5 INR 2.4 (Abnormal) Range: 0.8-1.2 Comments: Reference interval is for non-anticoagulated patients..Suggested INR therapeutic range for Vitamin Kantagonist therapy:Standard Dose (moderate intensitytherapeutic range): 2.0 - 3.0Higher intensity therapeutic range 2.5 - 3.5 Uric Acid, Serum 10.8 mg/dL (Abnormal) Comments: PERFORMED BY: [facility]6370 [facility] [id number] :21 Range: 2.4-8.2 56-Hvp-951706:22 HgA1C , Office (19033) HgA1C , Office 6.4 % (Normal) Range: 4.6 - 7.1 73-Ejp-020922:22 Blood Glucose , Office (70847) Blood Glucose , Office 137 (Normal) 16-Hxw-895200:38 URIC ACID BLOOD (66098) Comments: PATIENT NOT FASTINGPERFORMED BY: [facility]6370 [facility] [id number] Information: [id number] Uric Acid, Serum 9.0 mg/dL (Abnormal) Range: 2.4-8.2 93-Ruw-832341:16 FOOT,MIN 3 VIEWS (MT) Radiology Report See Note (Normal) Comments: Exam Number: [id number] LEFT FOOT Three views of the left [...] seen. IMPRESSIONPlantar spur. Reported By: IRVIN CHO 64-Lkx-411934:56 PTT (Activated Partial Comments: PATIENT NOT FASTINGPERFORMED BY: Zygo CommunicationsSaint Clare's Hospital at DenvilleCtmkjp2799 [facility] [id number] Thromboplastin Time) (53037) aPTT 56 {sec} (Abnormal) Range: 24-33 Comments: This test has not been validated for monitoring unfractionated heparintherapy. aPTT-based therapeutic ranges for unfractionated heparintherapy have not been established. For general guidelines onHeparin monitoring, refer to the [facility] Directory of Services. 82-Vgk-951971:56 PT (Prothrobim Time) Comments: PATIENT NOT FASTINGPERFORMED BY: [facility]asterMym[facility] Gladwin6370 [facility] [id number] Information: [id number] (85280) Prothrombin Time 24.2 {sec} (Abnormal) Range: 8.7-11.5 INR 2.5 (Abnormal) Range: 0.8-1.2 Comments: Reference interval is for non-anticoagulated patients..Suggested INR therapeutic range for Vitamin Kantagonist therapy:Standard Dose (moderate intensitytherapeutic range): 2.0 - 3.0Higher intensity therapeutic range 2.5 - 3.5 16-Vhi-160276:49 Prothrombin Time (PT) Comments: PERFORMED BY: [facility]6370 [facility] [id number] Prothrombin Time 26.2 {sec} (Abnormal) Range: 8.7-11.5 INR 2.7 (Abnormal) Range: 0.8-1.2 Comments: Reference interval is for non-anticoagulated patients..Suggested INR therapeutic range for Vitamin Kantagonist therapy:Standard Dose (moderate intensitytherapeutic range): 2.0 - 3.0Higher intensity therapeutic range 2.5 - 3.5 Hemoglobin A1c 6.1 % (Abnormal) Comments: PERFORMED BY: Zygo CommunicationsSaint Clare's Hospital at DenvilleHwqqoa6020 [facility] [id number] :56 Range: 4.8-5.6 Comments: Increased risk for diabetes: 5.7 - 6.4Diabetes: >6.4Glycemic control for adults with diabetes: <7.0.Please note reference interval change :21 HgA1C , Office (43383) HgA1C , Office 6.1 % (Normal) Range: 4.6 - 7.1 :21 Blood Glucose , Office (92110) Blood Glucose , Office 98 (Normal) :46 CBC With Differential/Platelet Comments: A courtesy copy of this report has been sent [phone].PATIENT WAS FASTINGPERFORMED BY: [facility]win6370 [facility] [id number] Information: [id number] Baso (Absolute) 0.0 {x10E3/uL} (Normal) Range: 0.0-0.2 [...] copy of this report has been sent [phone].PATIENT WAS FASTINGPERFORMED BY: [facility] Oafecs2857 [facility] [id number] Alkaline Phosphatase, S 85 [iU]/L (Normal) Range: [...] copy of this report has been sent [phone].PATIENT WAS FASTINGPERFORMED BY: [employer] [facility] Qazwhd5326 [facility] [id number] Ratio HDL Cholesterol 37 mg/dL (Abnormal) Comments: [...] copy of this report has been sent [phone].PATIENT WAS FASTINGPERFORMED BY: [facility] Rmrgij4296 [facility] [id number] Microalb/Creat Ratio 7.2 {mg/g_creat} (Normal) Range: 0.0-30.0 Creatinine, Urine 16.6 mg/dL (Normal) Range: 15.0-278.0 Microalbumin, Urine 1.2 ug/mL (Normal) Range: 0.0-17.0 :46 Prothrombin Time (PT) Comments: A courtesy copy of this report has been sent [phone].PATIENT WAS FASTINGPERFORMED BY: Zygo CommunicationsSaint Clare's Hospital at DenvilleLybqqu4153 [facility] [id number] Prothrombin Time 28.1 {sec} Range: 8.7-11.5 (Abnormal) INR 2.9 (Abnormal) Range: 0.8-1.2 Comments: Reference interval is for non-anticoagulated patients..Suggested INR therapeutic range for Vitamin Kantagonist therapy:Standard Dose (moderate intensitytherapeutic range): 2.0 - 3.0Higher intensity therapeutic range 2.5 - 3.5 Vitamin D, 25-Hydroxy 27.8 ng/mL Comments: A courtesy copy of this report has been sent [phone].PATIENT WAS FASTINGPERFORMED BY: Zygo CommunicationsSaint Clare's Hospital at DenvilleArjory1758 [facility] [id number] :46 (Abnormal) Range: 32.0-100.0 Comments: Recent studies consider the lower limit of 32.0 ng/mL to be athreshold for optimal health.Ye JARVIS. J Nutr. 2004;135(2):317-22. 73-Lrg-320964:51 Comp. Metabolic Panel (14) Comments: PERFORMED BY: Zygo CommunicationsSaint Clare's Hospital at DenvilleAzzpkm8551 [facility] [id number] A/G Ratio 1.3 (Normal) Range: 1.1-2.5 Albumin, [...] :51 Prothrombin Time (PT) Comments: PERFORMED BY: [employer] [facility] [id number] INR 2.3 (Abnormal) Range: 0.8-1.2 Comments: Reference interval is for non-anticoagulated patients. . Suggested INR therapeutic range for Vitamin K anta gonist therapy: Standard Dose (moderate intensity therapeutic range): 2.0 - 3.0 Higher intensity therapeutic range 2.5 - 3.5 Prothrombin Time 22.7 {sec} (Abnormal) Range: 8.7-11.5 :47 PT (Prothrobim Time) (25022) Comments: PATIENT NOT FASTINGClinical Information: [id number] PERFORMED BY: [employer]6370 [facility] [id number] INR 2.0 (Abnormal) Range: 0.8-1.2 Comments: Reference interval is for non-anticoagulated patients. . Suggested INR therapeutic range for Vitamin K anta gonist therapy: Standard Dose (moderate intensity therapeutic range): 2.0 - 3.0 Higher intensity therapeutic range 2.5 - 3.5 Prothrombin Time 19.7 {sec} (Abnormal) Range: 8.7-11.5 28-Tph-573811:10 HgA1C , Office (43700) HgA1C , Office 6.3 % (Normal) Range: 4.6 - 7.1 32-Hcu-966121:10 Blood Glucose , Office (69460) Blood Glucose , Office 109 (Normal) 21-Piy-512535:58 BILAT SCRN DIGITAL & CAD Radiology Report See Note (Normal) Comments: Exam Number: [id number] MAMMOGRAM, BILATERAL SCREENING DIGITAL AND CAD HISTORYRoutine [...] mammograms werealso examined with computer-aided detection software ([employer] Reported By: ELAINE NIEVES M.D. 5-Iol-759242:22 PRO TIME INR 2.3 (Normal) PROTIME 26.1 s (Abnormal) Range: 9.1-11.7 47-Sqi-199846:19 CHEST, PA AND LATERAL (MT) Radiology Report See Note (Normal) Comments: Exam Number: [id number] PA AND LATERAL CHEST Mild cardiomegaly appears [...] (Abnormal) Range: 9.1-11.7 :58 HgA1C , Office (99267) HgA1C , Office 5.7 % (Normal) Range: 4.6 - 7.1 :58 Blood Glucose , Office (72743) Blood Glucose , Office 119 (Normal) :39 PT/INR, Office (39575) INR 2.6 (Normal) :55 PT/INR, Office (87990) INR 2.5 (Normal) Comments: aw :01 HgA1C , Office (57696) HgA1C , Office 5.8 % (Normal) Range: 4.6 - 7.1 :01 Blood Glucose , Office (45790) Blood Glucose , Office 111 (Normal) :27 PT/INR, Office (22003) INR 2.2 (Normal) :09 PT/INR, Office (83943) INR 1.8 (Normal) :55 PT/INR, Office (77951) INR 3.3 (Normal) :51 PT/INR, Office (30226) INR 3.2 (Normal) Comments: aw 66-Jtx-898428:00 PT/INR, Office (05971) INR 2.9 (Normal) :14 PT/INR, Office (61417) INR 3.7 (Normal) :50 HgA1C , Office (00961) HgA1C , Office 5.8 % (Normal) Range: 4.6 - 7.1 :50 Blood Glucose , Office (10635) Blood Glucose , Office 119 (Normal) :03 CBC With Differential/Platelet Comments: PATIENT WAS FASTINGPERFORMED BY: [facility] Fokslg6736 [facility] [id number] Baso (Absolute) 0.0 {x10E3/uL} (Normal) Range: 0.0-0.2 [...] 11.7-15.0 WBC 7.4 {x10E3/uL} (Normal) Range: 4.0-10.5 93-Vxu-301604:03 Comp. Metabolic Panel (14) Comments: PATIENT WAS FASTINGPERFORMED BY: [facility] Iuszgq5773 [facility] [id number] A/G Ratio 1.1 (Normal) Range: 1.1-2.5 Albumin, [...] Serum 106 mg/dL (Abnormal) Range: 65-99 If -Nigerian 46 mL/min/1.73 Comments: Note: Persistent reduction for [...] With LDL/HDL Comments: PATIENT WAS FASTINGPERFORMED BY: [address] [id number] Ratio Cholesterol, Total 129 mg/dL (Normal) Range: 100-199 HDL Cholesterol 34 mg/dL (Abnormal) Comments: According to ATP-III Guidelines, HDL-C >59 mg/dL is considered anegative risk factor for CHD. LDL Cholesterol Calc 66 mg/dL (Normal) Range: 0-99 LDL/HDL Ratio 1.9 {ratio_units} (Normal) Range: 0.0-3.2 Triglycerides 144 mg/dL (Normal) Range: 0-149 VLDL Cholesterol Maricruz 29 mg/dL (Normal) Range: 5-40 20-Tdo-617221:03 Microscopic Examination Comments: PATIENT WAS FASTINGPERFORMED BY: [address] [id number] Bacteria Few (Normal) Cast Type Hyaline casts (Normal) Casts Present {/lpf} (Abnormal) Crystal Type Amorphous Sediment (Normal) Crystals Present (Abnormal) Epithelial Cells (non 0-10 {/hpf} (Normal) Range: 0 - 10 renal) Mucus Threads Present (Normal) RBC 0-3 {/hpf} (Normal) Range: 0 - 3 WBC 0-5 {/hpf} (Normal) Range: 0 - 5 NTI Urine Tube (Dorsey) COMMNT (Normal) Comments: PATIENT WAS FASTINGPERFORMED BY: [facility] [place] [address] [id number] 1:03 Comments: .A urine culture transport was received with no test indicated. Iftesting is required on this specimen, please contact the [facility] Inquiry[facility]Technical Services Department to obtain a Request forWritten Authorization Form. TSH 2.526 {uIU/mL} Comments: PATIENT WAS FASTINGPERFORMED BY: [facility]6370 [facility] [id number] 1:03 (Normal) Range: 0.450-4.500 24-Iob-461365:03 Urinalysis, Routine Comments: PATIENT WAS FASTINGPERFORMED BY: LabCoSaint Clare's Hospital at DenvilleUzbtzj2915 [facility] [id number] Appearance Clear (Normal) Bilirubin Negative (Normal) Glucose Negative (Normal) Ketones Negative (Normal) Microscopic Examination See below: (Normal) Nitrite, Urine Negative (Normal) Occult Blood Negative (Normal) pH 7.0 (Normal) Range: 5.0-7.5 Protein Negative (Normal) Specific [place] 1.008 (Normal) Range: 1.005-1.030 Urine-Color Yellow (Normal) Urobilinogen,Semi-Qn 0.2 mg/dL (Normal) Range: 0.0-1.9 WBC Esterase Trace (Abnormal) :29 PT/INR, Office (62878) INR 2.6 (Normal) Comments: aw 88-Kvn-690485:16 HgA1C , Office (19369) HgA1C , Office 6.1 % (Normal) Range: 4.6 - 7.1 26-Gew-741245:16 Blood Glucose , Office (70892) Blood Glucose , Office 186 (Normal) 91-Ojq-679133:16 PT/INR, Office (37562) INR 2.8 (Normal) :49 BILAT SCRN DIGITAL & CAD Radiology Report See Note (Normal) Comments: Exam Number: [id number] MAMMOGRAM, BILATERAL SCREENING DIGITAL AND CAD HISTORYRoutine [...] mammograms werealso examined with computer-aided detection software ([employer] Reported By: ELAINE NIEVES M.D. :37 PT/INR, Office (72298) INR 2.4 (Normal) :00 PT/INR, Office (54921) INR 1.9 (Normal) PT (PROTHROMBIN TIME) INR - 1.9 s (Normal) Range: 11.5-13.5 :18 DEXA BONE DENSITY/APPEND SKEL Radiology Report See Note (Normal) Comments: Exam Number: [id number] BONE DENSITOMETRY/APPENDICULAR SKELETON HISTORYOsteopenia. TECHNIQUE Bone densitometry [...] of osteopenia. Reported By: ELAINE NIEVES M.D. 54-Lte-986355:08 PT/INR, Office (25622) INR 2.0 (Normal) 22-Yzm-561890:08 HgA1C , Office (99107) HgA1C , Office 6.3 % (Normal) Range: 4.6 - 7.1 56-Kyo-329648:08 Blood Glucose , Office (72356) Blood Glucose , Office 177 (Normal) :13 [...] (Normal) PROTIME 28.9 s (Abnormal) Range: 10.6-13.2 78-Com-201232:08 PRO TIME INR 3.4 (Normal) PROTIME 36.9 s (Abnormal) Range: 10.6-13.2 49-Vjj-888763:20 PRO TIME INR 2.1 (Normal) PROTIME 23.9 s (Abnormal) Range: 10.6-13.2 :39 PRO TIME INR 3.1 (Normal) PROTIME 33.5 s (Abnormal) Range: 10.6-13.2 :22 HgA1C , Office (80597) HgA1C , Office 6.1 % (Normal) Range: 4.6 - 7.1 :22 Blood Glucose , Office (38655) Blood Glucose , Office 105 (Normal) :34 [...] s (Abnormal) Range: 10.6-13.2 :35 PT/INR, Office (37425) INR 2.7 (Normal) :56 HgA1C , Office (93838) HgA1C , Office 5.8 % (Normal) Range: 4.6 - 7.1 :56 Blood Glucose , Office (10023) Blood Glucose , Office 103 (Normal) :28 PRO TIME INR 2.8 (Normal) PROTIME 30.7 s (Abnormal) Range: 10.6-13.2 :55 PRO TIME INR 2.1 (Normal) PROTIME 24.0 s (Abnormal) Range: 10.6-13.2 :05 PT/INR, Office (64394) INR 2.5 (Normal) :05 Blood Glucose , Office (19659) Blood Glucose , Office 100 (Normal) :05 HgA1C , Office (11503) HgA1C , Office 6.2 % (Normal) Range: 4.6 - 7.1 :10 [facility] DIGITAL & CAD Radiology Report See Note (Normal) Comments: Exam Number: [id number] DIGITAL SCREENING MAMMOGRAPHY WITH CAD COMPARISON STUDYDated [...] werealso examined with computer- aided detection software ([email or web address].). Reported By: MAO KURTZ M.D. :49 PRO TIME INR 2.5 (Normal) PROTIME 27.8 s (Abnormal) Range: 10.6-13.2 :13 PRO TIME INR 2.7 (Normal) PROTIME 29.7 s (Abnormal) Range: 10.6-13.2 :14 PRO TIME INR 2.2 (Normal) PROTIME 24.3 s (Abnormal) Range: 10.6-13.2 :26 PT/INR, Office ([id number]) INR 2.5 (Normal) PT (PROTHROMBIN TIME) INR 2.5 s (Normal) Range: 11.5-13.5 :25 HgA1C , Office ([id number]) HgA1C , Office 6.0 % (Normal) Range: 4.6 - 7.1 :25 Blood Glucose , Office (36598) Blood Glucose , Office 108 (Normal) :20 [...] Note Reference Interval Change :22 PT/INR, Office ([id number]) Comments: done- same dose recheck in 2 weeks-- alternate 4/5 INR 2.3 (Normal) :22 HgA1C , Office (31997) Comments: done HgA1C , Office 5.9 % (Normal) Range: 4.6 - 7.1 :21 Blood Glucose , Office (16382) Comments: done Blood Glucose , Office 101 [...] s (Abnormal) Range: 11.7-13.3 :50 PT/INR, Office (33212) INR 1.9 (Normal) PT (PROTHROMBIN TIME) 16.9 s (Abnormal) Range: 11.5-13.5 :50 HgA1C , Office (78515) HgA1C , Office 6.0 % (Normal) Range: 4.6 - 7.1 :50 Blood Glucose , Office (57418) Blood Glucose , Office 95 (Normal) :59 [...] (Abnormal) Range: 11.7-13.3 :40 HgA1C , Office (65297) HgA1C , Office 5.7 % (Normal) Range: 4.6 - 7.1 :40 Blood Glucose , Office (71401) Blood Glucose , Office 115 (Normal) Plan of Care Name Dates Details Instructions Anasarca : Follow up in 3 months Indication: Anasarca Iron deficiency anemia : Reviewed [employer] Inspector Letter Indication: Iron deficiency anemia Valvular disease : Reviewed [employer] Inspector Letter Indication: Valvular disease Lower GI bleed : Reviewed Lab Indication: Lower GI bleed Lower GI bleed : Reviewed [employer] Inspector Letter Indication: Lower GI bleed Essential hypertension with goal blood pressure less than 130/80 : Reviewed [employer] Inspector Letter Indication: Essential hypertension with goal blood [...] : Follow up in 2 weeks with [facility] SaturdayNovember 20 Indication: Cough Cough : [...] : FOLLOW UP IN 1 WEEK with [facility] Indication: Atrial fibrillation Mixed dyslipidemia : Diet, Exercise, and Wt loss Indication: Mixed dyslipidemia Cough : MDI Education Indication: Cough Mixed dyslipidemia : FOLLOW UP IN 2 MONTHS Indication: Mixed dyslipidemia FOLLOW UP IN 3 MONTHS Planned Observations Metabolic Panel, Comprehensive ([id number])Indication: CKD (chronic kidney disease), stage III On: :09 Request CBC & PLATELETS (AUTO) ([id number])Indication: Lower GI bleed On: :08 Request PT (PROTHROMBIN TIME) ([id number])Indication: Lower GI bleed On: :08 Request Metabolic Panel, Basic (76763)Indication: Shortness of breath On: :58 Request CBC, Platelets & Auto Diff ([id number])Indication: Shortness of breath On: :55 Request BNTP ([id number])Indication: Shortness of breath On: :55 Request BNTP ([id number])Indication: Acute CHF On: 5-Myg-522523:18 Request METABOLIC PANEL, COMPREHENSIVE ([id number])Indication: Acute CHF On: 6-Iqt-878114:18 Request CBC & PLATELETS (AUTO) ([id number])Indication: Acute CHF On: 3-Gnu-308546:18 Request FERRITIN ([id number])Indication: Iron deficiency anemia On: 4-Nfo-194093:22 Request IRON BINDING CAPACITY (TIBC) ([id number])Indication: Iron deficiency anemia On: 3-Lii-720343:22 Request IRON ([id number])Indication: Iron deficiency anemia On: 8-Vzw-603789:22 Request IRON & TOTAL IRON BINDING CAPACITY ([id number])Indication: Iron deficiency anemia On: 6-Ifo-664153:22 Request LIPID PANEL ([id number])Indication: Diabetes mellitus type II, controlled On: 2-Lhq-945002:20 Request Metabolic Panel, Comprehensive ([id number])Indication: Acute renal failure On: 7-Xtd-243747:19 Request PT (Prothrobim Time) ([id number])Indication: Walking pneumonia On: 45-Bng-944362:20 Request PT (PROTHROMBIN TIME) ([id number])Indication: Atrial fibrillation On: 03-May-2017 Request Comments: Standing order Ferritin ([id number])Indication: Anemia, unspecified On: 93-Hiy-968990:45 Request Iron (58021)Indication: Anemia, unspecified On: :45 Request CBC WITH MANUAL DIFF ([id number])Indication: Anemia, unspecified On: :45 Request CBC, Platelets & Auto Diff (92094)Indication: Lower GI bleed On: :40 Request Comments: Week of February 25, give lab slip HgA1C , Office (41523)Indication: Diabetes mellitus type II, controlled On: : Request Blood Glucose , Office (43911)Indication: Diabetes mellitus type II, controlled On: :26 Request FERRITIN ([id number])Indication: Anemia, unspecified On: :26 Request HGB (HEMOGLOBIN) ([id number])Indication: Lower GI bleed On: :44 Request MAGNESIUM ([id number])Indication: Acute renal failure On: :11 Request Comments: to be done around January 14 Metabolic Panel, Comprehensive (68323)Indication: Acute renal failure On: :06 Request Comments: to be done at [facility] 01-14 CBC & PLATELETS (AUTO) ([id number])Indication: Acute renal failure On: :06 Request Comments: to be done at [facility] on 01-14 URINE SIOBHAN CULTURE-IDENTIFICATN ([id number])Indication: Acute renal failure On: 5-Bwe-238736:55 Request URINALYSIS ([id number])Indication: Acute renal failure On: :51 Request Comments: December 25 Renal function Panel (98162)Indication: Acute renal failure On: :51 Request Comments: December 25 METABOLIC PANEL, BASIC ([id number])Indication: Abnormal blood finding On: :00 Request CBC, PLATELETS & AUT DIFF ([id number])Indication: Abnormal blood finding On: :00 Request Metabolic Panel, Basic ([id number])Indication: Abnormal blood finding On: 2-Ujv-929218:01 Request Comments: stat CBC WITH MANUAL DIFF ([id number])Indication: Abnormal blood finding On: :17 Request CBC, Platelets & Auto Diff ([id number])Indication: Iron deficiency anemia On: 80-Sqz-869464:15 Request PT (PROTHROMBIN TIME) ([id number])Indication: Atrial fibrillation On: 8-Suj-236297:36 Request Comments: standing order FERRITIN ([id number])Indication: Restless leg syndrome On: :32 Request IRON & TOTAL IRON BINDING CAPACITY ([id number])Indication: Restless leg syndrome On: :32 Request MICROALBUMIN: CREATININE RATIO (30075) AND ([id number])Indication: Restless leg syndrome On: :32 Request VITAMIN B12 AND FOLATES (74609)Indication: Restless leg syndrome On: : Request CALCIFEDIOL (43246)Indication: Restless leg syndrome On: : Request TSH (THYROID STIMULATING HORMONE) ([id number])Indication: Restless leg syndrome On: :32 Request LIPID PANEL (75992)Indication: Mixed dyslipidemia On: :32 Request METABOLIC PANEL, COMPREHENSIVE (68507)Indication: BMI 45.0-49.9, adult On: :32 Request CBC, PLATELETS & AUT DIFF ([id number])Indication: BMI 45.0-49.9, adult On: :32 Request FERRITIN (31415)Indication: Iron deficiency anemia On: :20 Request IRON & TOTAL IRON BINDING CAPACITY (76646)Indication: Iron deficiency anemia On: :20 Request LIPID PANEL (87309)Indication: Mixed dyslipidemia On: :20 Request TSH (THYROID STIMULATING HORMONE) ([id number])Indication: Mild vitamin D deficiency On: :19 Request VITAMIN B12 AND FOLATES (97429)Indication: Mild vitamin D deficiency On: :19 Request CALCIFEDIOL ([id number])Indication: Mild vitamin D deficiency On: :19 Request METABOLIC PANEL, COMPREHENSIVE (84130)Indication: Diabetes mellitus type 2, uncontrolled, without complications On: :19 Request CBC, PLATELETS & AUT DIFF ([id number])Indication: Diabetes mellitus type 2, uncontrolled, without complications On: Request LDH (LD) (LACTATE DEHYDROGENASE) ([id number])Indication: Anemia, unspecified On: Request FOLIC ACID SERUM (69445)Indication: Anemia, unspecified On: Request SPEP ([id number])Indication: Anemia, unspecified On: Request UPEP ([id number])Indication: Anemia, unspecified On: Request FERRITIN (71672)Indication: Anemia, unspecified On: Request IRON (44901)Indication: Anemia, unspecified On: Request VITAMIN B-12 (CYANOCOBALAMIN) ([id number])Indication: Anemia, unspecified On: Request ESWOI-XASUZQEMGBV-SLLVA ([id number])Indication: Other chronic nonalcoholic liver disease On: Request CBC with auto diff (44361)Indication: Essential hypertension with goal blood pressure less than 130/80 On: Request HGB A1C (07334)Indication: Diabetes mellitus type II, controlled On: Request MICROALBUMIN: CREATININE RATIO (19599) AND ([id number])Indication: Diabetes mellitus type II, controlled On: Request LIPID PANEL (99998)Indication: Mixed dyslipidemia On: Request Metabolic Panel, Basic (28086)Indication: Diabetes mellitus type 2, uncontrolled, without complications On: Request MICROALBUMIN: CREATININE RATIO ([id number]) AND ([id number])Indication: Diabetes mellitus type II, controlled On: : Request METABOLIC PANEL, COMPREHENSIVE (92215)Indication: Diabetes mellitus type II, controlled On: : Request LIPID PANEL (10538)Indication: Mixed dyslipidemia On: Request CBC (AUTO) ([id number])Indication: Anemia, unspecified On: 59 Request Vitamin D Hydroxy (76469)Indication: Mild vitamin D deficiency On: 89-Szo-81968:59 Request KJOIM-UDEGLCXVQXY-ESLWK ([id number])Indication: Other chronic nonalcoholic liver disease On: :57 Request CBC with auto diff ([id number])Indication: Pulmonary hypertension On: :50 Request Hemoglobin Glyclated (HGB A1C) (56582)Indication: Diabetes mellitus type II, controlled On: :50 Request METABOLIC PANEL, COMPREHENSIVE (60860)Indication: Essential hypertension with goal blood pressure less than 130/80 On: :49 Request LIPID PANEL (79813)Indication: Mixed dyslipidemia On: :49 Request LIPID PANEL (01035)Indication: Diabetes mellitus type II, controlled On: :49 Request HEPATIC FUNCTION PANEL ([id number])Indication: Diabetes mellitus type II, controlled On: :49 Request Vitamin D Hydroxy (24646)Indication: Mild vitamin D deficiency On: :30 Request METABOLIC PANEL, COMPREHENSIVE ([id number])Indication: Diabetes mellitus type II, controlled On: :30 Request LIPID PANEL (36909)Indication: Mixed dyslipidemia On: :30 Request OVBYK-UBBMRCBUKJR-OHEGF (02974)Indication: Other chronic nonalcoholic liver disease On: :29 Request CBC with auto diff (75207)Indication: Anemia, unspecified On: :29 Request MICROALBUMIN: CREATININE RATIO (58828) AND ([id number])Indication: Diabetes mellitus type II, controlled On: :24 Request METABOLIC PANEL, COMPREHENSIVE (39265)Indication: Essential hypertension with goal blood pressure less than 130/80 On: :24 Request Vitamin D Hydroxy (68773)Indication: Mild vitamin D deficiency On: :24 Request LIPID PANEL (57558)Indication: Mixed dyslipidemia On: :24 Request LDH (LD) (LACTATE DEHYDROGENASE) (40387)Indication: Anemia, unspecified On: :24 Request VITAMIN B-12 (CYANOCOBALAMIN) ([id number])Indication: Anemia, unspecified On: :24 Request IRON BINDING CAPACITY (TIBC) ([id number])Indication: Anemia, unspecified On: :24 Request FERRITIN ([id number])Indication: Anemia, unspecified On: :24 Request IRON ([id number])Indication: Anemia, unspecified On: :24 Request CBC W/AUTO DIFF WBC ([id number])Indication: Anemia, unspecified On: :24 Request LIPID PANEL (78553)Indication: Mixed dyslipidemia On: : Request METABOLIC PANEL, COMPREHENSIVE (04090)Indication: Essential hypertension with goal blood pressure less than 130/80 On: :02 Request CBC (AUTO) ([id number])Indication: Anemia, unspecified On: : Request Vitamin D Hydroxy (64408)Indication: Mild vitamin D deficiency On: : Request FWZHV-TTSQYUCTZFA-KFSMN ([id number])Indication: Other chronic nonalcoholic liver disease On: : Request PTT (Activated Partial Thromboplastin Time) (53492)Indication: Other chronic nonalcoholic liver disease On: : Request PT (Prothrobim Time) ([id number])Indication: Other chronic nonalcoholic liver disease On: : Request PT (Prothrobim Time) ([id number])Indication: Atrial fibrillation On: :28 Request Comments: STANDING ORDER CBC WITH MANUAL DIFF ([id number])Indication: Anemia, unspecified On: :53 Request LIPID PANEL (15965)Indication: Mixed dyslipidemia On: :53 Request MICROALBUMIN: CREATININE RATIO (18858) AND ([id number])Indication: Diabetes mellitus type II, controlled On: 44-Szx-906209:52 Request METABOLIC PANEL, COMPREHENSIVE ([id number])Indication: Diabetes mellitus type II, controlled On: 33-Xbi-090292:52 Request Vitamin D Hydroxy (68241)Indication: Mild vitamin D deficiency On: :52 Request Vitamin D Hydroxy (62404)Indication: Mild vitamin D deficiency On: :13 Request LIPID PANEL (05741)Indication: Mixed dyslipidemia On: :12 Request URIC ACID BLOOD (86695)Indication: Gout On: :12 Request XIRTY-FIMUNTQSTSM-HSULK ([id number])Indication: Other chronic nonalcoholic liver disease On: :12 Request PTT (Activated Partial Thromboplastin Time) ([id number])Indication: Other chronic nonalcoholic liver disease On: :12 Request METABOLIC PANEL, COMPREHENSIVE (97911)Indication: Essential hypertension with goal blood pressure less than 130/80 On: :12 Request CBC WITH MANUAL DIFF ([id number])Indication: Anemia, unspecified On: 53-Utk-557944:11 Request PT (Prothrobim Time) ([id number])Indication: Atrial fibrillation On: 28-Yco-537811:59 Request Comments: STANDING ORDER HEPATIC FUNCTION PANEL (66897)Indication: Mixed dyslipidemia On: 15-Vcp-654891:56 Request CBC WITH MANUAL DIFF ([id number])Indication: Gout On: :08 Request LIPID PANEL ([id number])Indication: Mixed dyslipidemia On: :08 Request METABOLIC PANEL, COMPREHENSIVE ([id number])Indication: Diabetes mellitus type II, controlled On: 83-Aic-735636:08 Request MICROALBUMIN: CREATININE RATIO (98494) AND ([id number])Indication: Diabetes mellitus type II, controlled On: :08 Request Metabolic Panel, Basic (41882)Indication: Hyperkalemia On: 45-Ksz-748499:40 Request PT (Prothrobim Time) ([id number])Indication: Atrial fibrillation On: 4-Vsw-558447:35 Request LIPID PANEL (59727)Indication: Mixed dyslipidemia On: 66-Glm-634393:34 Request METABOLIC PANEL, COMPREHENSIVE (80383)Indication: Diabetes mellitus type II, controlled On: 10-Oyx-017098:33 Request MICROALBUMIN: CREATININE RATIO ([id number]) AND ([id number])Indication: Diabetes mellitus type II, controlled On: :33 Request CBC WITH MANUAL DIFF ([id number])Indication: Anemia, unspecified On: 89-Vbe-742356:33 Request CBC WITH MANUAL DIFF ([id number])Indication: Anemia, unspecified On: 08-Jbg-655568:07 Request METABOLIC PANEL, COMPREHENSIVE (30801)Indication: Renal insufficiency (Renamed from Renal function impairment) On: :06 Request MICROALBUMIN: CREATININE RATIO (80631) AND ([id number])Indication: Diabetes mellitus type II, controlled On: :06 Request LIPID PANEL (52986)Indication: Mixed dyslipidemia On: 90-Blj-596804:06 Request PSPSC-CJEOOYOWCPQ-JOEAZ ([id number])Indication: Other chronic nonalcoholic liver disease On: :06 Request Vitamin D Hydroxy (65149)Indication: Mild vitamin D deficiency On: :05 Request Vitamin D Hydroxy (85176)Indication: Mild vitamin D deficiency On: 13-Vry-544865:08 Request FLURESCNT ANTIB SCRN EA ([id number]) celiac profileIndication: Anemia, unspecified On: :08 Request IGA/IGD/IGG/IGM-EACH (12735) celiac profileIndication: Anemia, unspecified On: :08 Request IMMUNOASSAY, ANALYTE (NON-INFECT) (79090) celiac profileIndication: Anemia, unspecified On: 56-Fvq-231180:08 Request METABOLIC PANEL, COMPREHENSIVE (91553)Indication: Diabetes mellitus type 2, uncontrolled, without complications On: 69-Xok-931129:06 Request CBC with manual diff (73804)Indication: Anemia, unspecified On: 55-Vku-425151:49 Request Iron Binding Capacity (TIBC) (14048)Indication: Anemia, unspecified On: 38-Qwd-381391:49 Request Iron (24305)Indication: Anemia, unspecified On: :49 Request Ferritin (74507)Indication: Anemia, unspecified On: 75-Urf-293626:49 Request Metabolic Panel, Basic (64064)Indication: Abnormal blood chemistry On: :09 Request LIPID PANEL (53458)Indication: Mixed dyslipidemia On: 21-Tji-932094:02 Request Metabolic Panel, Basic (87722)Indication: Renal insufficiency (Renamed from Renal function impairment) On: 58-Fon-392358:01 Request IRON ([id number])Indication: Anemia, unspecified On: 02-Foh-998031:32 Request Vitamin D Hydroxy ([id number])Indication: Mild vitamin D deficiency On: 86-Yxh-869568:49 Request LIPID PANEL (79502)Indication: Mixed dyslipidemia On: 18-Yra-204110:48 Request CBC WITH MANUAL DIFF (09948)Indication: Anemia, unspecified On: 46-Egk-465580:48 Request METABOLIC PANEL, COMPREHENSIVE (73085)Indication: Abnormal glucose tolerance test On: 80-Mro-467900:48 Request MICROALBUMIN: CREATININE RATIO (68870) AND ([id number])Indication: Abnormal glucose tolerance test On: :48 Request CALCIFEDIOL (96030)Indication: Mild vitamin D deficiency On: 1-Hzy-401382:16 Request LIPID PANEL (09493)Indication: Mixed dyslipidemia On: 9-Tfj-749379:16 Request METABOLIC PANEL, COMPREHENSIVE (60270)Indication: Mixed dyslipidemia On: 0-Vzw-565958:16 Request URINALYSIS (69815)Indication: Essential hypertension with goal blood pressure less than 130/80 On: 3-Zpy-095630:16 Request CBC with manual diff ([id number])Indication: Essential hypertension with goal blood pressure less than 130/80 On: 2-Vvb-424513:16 Request LDH (LD) (LACTATE DEHYDROGENASE) (63742)Indication: Essential hypertension with goal blood pressure less than 130/80 On: 3-Ktw-551763:16 Request Iron (76178)Indication: Essential hypertension with goal blood pressure less than 130/80 On: 4-Gek-528714:16 Request Ferritin ([id number])Indication: Essential hypertension with goal blood pressure less than 130/80 On: 2-Fyg-704287:16 Request URIC ACID BLOOD ([id number])Indication: Gout On: 98-Hiw-869731:49 Request LDH (LD) (LACTATE DEHYDROGENASE) (75439)Indication: Anemia, unspecified On: 08-Qhk-812480:26 Request URIC ACID BLOOD (57834)Indication: Gout On: 4-Fbm-291389:19 Request URIC ACID BLOOD ([id number])Indication: Gout On: 3-Iad-219342:16 Request TSH (THYROID STIMULATING HORMONE) ([id number])Indication: Mixed dyslipidemia On: :29 Request URINALYSIS (92834)Indication: Mixed dyslipidemia On: 63-Pns-789775:28 Request LIPID PANEL (57652)Indication: Mixed dyslipidemia On: :27 Request CBC, PLATELETS & AUT DIFF (91656)Indication: Mixed dyslipidemia On: :18 Request METABOLIC PANEL, COMPREHENSIVE (58176)Indication: Mixed dyslipidemia On: :17 Request CALCIFEDIOL (33048)Indication: Mild vitamin D deficiency On: :16 Request HgA1C , Office (17164)Indication: Abnormal glucose tolerance test On: :59 Request METABOLIC PANEL, BASIC (91736)Indication: Atrial fibrillation On: :30 Request METABOLIC PANEL, BASIC (35888)Indication: Atrial fibrillation On: :59 Request CBC WITH MANUAL DIFF ([id number])Indication: Atrial fibrillation On: :11 Request METABOLIC PANEL, COMPREHENSIVE (48767)Indication: Other chronic nonalcoholic liver disease On: :10 Request LIPID PANEL (17237)Indication: Mixed dyslipidemia On: :10 Request LIPID PANEL (09356)Indication: Mixed dyslipidemia On: :11 Request CBC WITH MANUAL DIFF ([id number])Indication: Abnormal glucose tolerance test On: 9-Xzv-118715:11 Request MICROALBUMIN: CREATININE RATIO (25287) AND ([id number])Indication: Abnormal glucose tolerance test On: 4-Ibs-611231:11 Request Vitamin D Hydroxy (07962)Indication: Mild vitamin D deficiency On: :11 Request METABOLIC PANEL, COMPREHENSIVE (33459)Indication: Other chronic nonalcoholic liver disease On: :10 Request METABOLIC PANEL, COMPREHENSIVE (31683)Indication: Abnormal glucose tolerance test On: 04-Dhd-603542:10 Request MICROALBUMIN: CREATININE RATIO (40202) AND ([id number])Indication: Abnormal glucose tolerance test On: 97-Moe-554711:10 Request LIPID PANEL (82464)Indication: Mixed dyslipidemia On: 64-Gcj-612752:10 Request Vitamin D Hydroxy (46121)Indication: Osteopenia On: 35-Dxj-741659:10 Request LIPID PANEL (42786)Indication: Mixed dyslipidemia On: 56-Pnz-021429:48 Request Vitamin D Hydroxy (93418)Indication: Mild vitamin D deficiency On: :48 Request CBC WITH MANUAL DIFF ([id number])Indication: Abnormal glucose tolerance test On: :47 Request METABOLIC PANEL, COMPREHENSIVE (43636)Indication: Abnormal glucose tolerance test On: 51-Yuf-846562:47 Request LIPID PANEL (21967)Indication: Mixed dyslipidemia On: 58-Hax-051832:39 Request METABOLIC PANEL, COMPREHENSIVE (76767)Indication: Hypercalcemia On: 02-Gth-753425:38 Request Vitamin D Hydroxy (26613)Indication: Mild vitamin D deficiency On: :38 Request CBC (AUTO) ([id number])Indication: Abnormal glucose tolerance test On: 69-Fqu-871032:28 Request Vitamin D Hydroxy (53002)Indication: Osteopenia On: :28 Request CBC WITH MANUAL DIFF ([id number])Indication: Essential hypertension with goal blood pressure less than 130/80 On: 18-Deg-727682:28 Request MICROALBUMIN: CREATININE RATIO (36207) AND (75006)Indication: Abnormal glucose tolerance test On: :28 Request METABOLIC PANEL, COMPREHENSIVE (92391)Indication: Hypercalcemia On: 22-Len-127717:27 Request Vitamin D Hydroxy (90559)Indication: Osteopenia On: 51-Xck-019053:34 Request Metabolic Panel, Basic (77990)Indication: Hyperkalemia On: 22-Mtn-011170:04 Request Comments: 1 week LIPID PANEL (01490)Indication: Mixed dyslipidemia On: 57-Kup-340268:34 Request TSH (03949)Indication: Essential hypertension with goal blood pressure less than 130/80 On: 42-Opx-382307:34 Request CBC WITH MANUAL DIFF ([id number])Indication: Essential hypertension with goal blood pressure less than 130/80 On: 33-Fqt-973665:34 Request METABOLIC PANEL, COMPREHENSIVE (40128)Indication: Abnormal glucose tolerance test On: 96-Qid-934851:34 Request PT/INR, Office (49803)Indication: Atrial fibrillation On: :55 Request PT/INR, Office (94759)Indication: Atrial fibrillation On: 6-Hwe-108019:36 Request PT (Prothrobim Time) ([id number])Indication: Atrial fibrillation On: :58 Request METABOLIC PANEL, COMPREHENSIVE (04990)Indication: Essential hypertension with goal blood pressure less than 130/80 On: :09 Request CBC WITH MANUAL DIFF (04173)Indication: Essential hypertension with goal blood pressure less than 130/80 On: 13-Ljo-034926:09 Request MICROALBUMIN: CREATININE RATIO (29108) AND ([id number])Indication: Abnormal glucose tolerance test On: :09 Request HEPATIC FUNCTION PANEL (82843) On: 76-Bzr-098513:07 Request LIPID PANEL (62781)Indication: Mixed dyslipidemia On: :07 Request PT/INR, Office (54215)Indication: Atrial fibrillation On: 07-Ifn-617136:19 Request Comments: done>Wf. PT/INR, Office (76722)Indication: Atrial fibrillation On: 15-Dfl-793534:30 Request METABOLIC PANEL, COMPREHENSIVE (09921)Indication: Essential hypertension with goal blood pressure less than 130/80 On: 62-Mxh-913057:34 Request CBC WITH MANUAL DIFF ([id number])Indication: Essential hypertension with goal blood pressure less than 130/80 On: 89-Upd-320421:34 Request HEPATIC FUNCTION PANEL ([id number])Indication: Mixed dyslipidemia On: 01-Tsw-367815:34 Request LIPID PANEL (96251)Indication: Mixed dyslipidemia On: 55-Mpr-117748:34 Request LIPID PANEL (19517)Indication: Mixed dyslipidemia On: 01-Gin-584964:51 Request URINALYSIS W/O MICRO (17124)Indication: Essential hypertension with goal blood pressure less than 130/80 On: 90-Ggo-500899:51 Request TSH (78997)Indication: Essential hypertension with goal blood pressure less than 130/80 On: 25-Hnb-196223:51 Request CBC WITH MANUAL DIFF ([id number])Indication: Essential hypertension with goal blood pressure less than 130/80 On: 24-Swl-013404:51 Request METABOLIC PANEL, COMPREHENSIVE (11795)Indication: Essential hypertension with goal blood pressure less than 130/80 On: 65-Qfg-739721:51 Request TSH (51732)Indication: Essential hypertension with goal blood pressure less than 130/80 On: 94-Vyf-209948:44 Request METABOLIC PANEL, COMPREHENSIVE (39454)Indication: Essential hypertension with goal blood pressure less than 130/80 On: 49-Jkw-842659:44 Request CBC WITH MANUAL DIFF ([id number])Indication: Essential hypertension with goal blood pressure less than 130/80 On: 29-Sqk-870146:44 Request MICROALBUMIN URINE QUANT ([id number])Indication: Abnormal glucose tolerance test On: :59 Request METABOLIC PANEL, COMPREHENSIVE (71443)Indication: Abnormal glucose tolerance test On: :57 Request CBC WITH MANUAL DIFF ([id number])Indication: Abnormal glucose tolerance test On: :57 Request LIPID PANEL (36973)Indication: Mixed dyslipidemia On: :56 Request HEPATIC FUNCTION PANEL (60959)Indication: Mixed dyslipidemia On: :56 Request HEPATIC FUNCTION PANEL (50335)Indication: Mixed dyslipidemia On: :11 Request LIPID PANEL ([id number])Indication: Mixed dyslipidemia On: 56-Hjl-260361:11 Request Planned Encounters Medical; 3 Month FU - On: 10-Sep-2018 9:15 [facility] Sara Swartz CNP, CNP, Mary E Planned Procedures Aerosol Treatment (79504)By: On: 08-Aug-2017 Intent Kaykay Layne Comments: Exp wheeze still heard after aerosol treatment-better air exchange though. Solu- Medrol Injection, 125mg On: 08-Aug-2017 Intent ([id number])By: Kaykay Layne Comments: lot [id number] mgleft gm IMas, MULE SPINNER Rocephin Injection, 2 Gram On: 06-Aug-2017 Intent ([id number])By: Kaykay Layne CHEST XRAY, PA & LATERAL On: 06-Aug-2017 Intent ([id number])By: Kaykay Layne Aerosol Treatment ([id number])By: On: 06-Aug-2017 Intent Kaykay Layne RIGHT BREAST ULTRASOUND ([id number])By: On: 26-Jul-2017 Intent Sara Swartz CNP, CNP, Mary E SCREENING DIGITAL TOMOSYNTHESIS OF On: 20-May-2017 Intent BREAST ([id number])By: Sara Swartz CNP, CNP, Mary E Flu Vaccine (Quadrivalent) On: 20-May-2017 Intent [id number]: Sara Swartz CNP Comments: Lot:[id number]:11/2017Dose:0.5mLRoute:IMSite:L DltdGiven By:mlVIS signed Sara HENRY MAMMOGRAM, SCREENING, BOTH BREAST On: 26-Jun-2016 Intent ([id number])By: Jacinto Sheehan MD DEXA SCAN AXIAL SKELETON On: 27-Mar-2016 Intent ([id number])By: Jacinto Sheehan MD Ultrasound - LiverBy: Jarad RUIZ, On: 19-Dec-2015 Intent Brittany Caro PNEUM VAC ADLT/IMUMNOSPR, On: 05-Jul-2015 Intent SBC/INTRM ([id number])By: Raghu Downing Comments: PNEUMOlot:[id number]:1*13*17site:LT deltoidroute:IMdose:.5mlDEMICK, SMA MAMMOGRAM, SCREENING, BOTH BREAST On: 15-Jun-2015 Intent ([id number])By: Brittany Abraham DO Cartoid DopplerBy: Brittany Abraham DO On: 15-Jun-2015 Intent A Flu Vaccine (Quadrivalent) On: 15-Jun-2015 Intent [id number]: Brittany Abraham DO Comments: Lot #:[id number] date: 01/2016Amount given:prefilled syringeSite given:L Dltd, IMGiven by: AYAKA Morris and ABN signed ADMINISTRATION OF INFLUENZA VIRUS On: 15-Jun-2015 Intent VACCINE ([id number])By: Brittany Abraham DO Overnight Pulse OX ([id number])By: Jarad On: 18-Mar-2015 Intent Brittany RUIZ PFT - CompleteBy: Brittany Abraham DO On: 18-Mar-2015 Intent Radiology - Knee - Right - Weight On: 28-Jun-2014 Intent BearingBy: Brittany Abraham DO Radiology - Knee - Left - Weight On: 28-Jun-2014 Intent BearingBy: Brittany Abraham DO Prevnar 13 ([id number])By: Jarad RUIZ, On: 08-Jun-2014 Intent Brittany Caro Comments: [id number] arm, IMMegan MAMMOGRAM, SCREENING, BOTH BREAST On: 08-Jun-2014 Intent ([id number])By: Brittany Abraham DO Comments: end jul Ultrasound - LiverBy: Jarad RUIZ, On: 08-Dec-2013 Intent Brittany Caro Inhaler Demonstration ([id number])By: On: 20-Nov-2013 Intent Tia HENRY, Magaly Tia HENRY, Sara Mc Aerosol Treatment ([id number])By: Tia On: 20-Nov-2013 Intent Sara HENRY E Sara Swartz CNP Radiology - ChestBy: Miltongordo CARL, On: 04-Nov-2013 Intent Sara Bear CNP Comments: To be Done satNovember 18 Aerosol Treatment ([id number])By: Tia On: 03-Nov-2013 Intent Sara HENRY CNP, Mary E Radiology - ChestBy: Tia HENRY, On: 03-Nov-2013 Intent [facility] Bear CNP [facility] E[facility] On: 08-Sep-2013 Intent ([id number])By: Ariane Hartman MAMMOGRAM, SCREENING, BOTH BREASTS On: 01-May-2013 Intent ([id number])By: Brittany Abraham DO Comments: jul DXA, BONE DENSITY, AXIAL SKELETON On: 01-May-2013 Intent ([id number])By: Brittany Abraham DO Comments: jul FLU VAC, SPLIT, >3 YEARS, On: 01-May-2013 Intent INTRAMUSC ([id number])By: Minnie, Comments: Lot #:[id number] date:mount given:0.5mlRoute: IMSite given: L dltdVIS and ABN signedGiven by: LILY Payton ADMINISTRATION OF INFLUENZA VIRUS On: 01-May-2013 Intent VACCINE (G0008)By: Ariane Hartman Eprescribed prescriptions On: 01-May-2013 Intent ([id number])By: Ariane Hartman Eprescribed prescriptions On: 30-Jan-2013 Intent ([id number])By: Ariane Hartman Eprescribed prescriptions On: 31-Oct-2012 Intent (G8553)By: Ariane Hartman Eprescribed prescriptions On: 28-Jul-2012 Intent ([id number])By: Ariane Hartman MAMMOGRAM, SCREENING, BOTH BREASTS On: 07-Jul-2012 Intent ([id number])By: Brittany Abraham DO Eprescribed prescriptions On: 07-Apr-2012 Intent (G8553)By: Ariane Harmtan TDAP VACCINE >7 IM ([id number])By: On: 03-Dec-2011 Intent Ariane Hartman Comments: Lot:[id number]:07/12/13Amt:prefilledRoute:IMSite:left deltGiven By: THERESA Hinson Doppler Ultrasound OtherBy: Fast On: 03-Dec-2011 Intent Brittany RUIZ Comments: both legs stat call wet read Breast Screening - BilateralBy: On: 08-Jun-2011 Intent Brittany Abraham DO FLU VAC, SPLIT, >3 YEARS, On: 05-Jun-2011 Intent INTRAMUSC ([id number])By: Minnie, Comments: Lot #:[id number] date:mount given:0.5mlRoute: IMSite given:left deltGiven by: LILY Payton ADMINISTRATION OF INFLUENZA VIRUS On: 05-Jun-2011 Intent VACCINE (G0008)By: Ariane Hartman Eprescribed prescriptions On: 14-Feb-2011 Intent (G8553)By: Brittany Abraham DO IMMUNIZ ADMNIN, 1 VAC, SNGL/COMBO On: 30-Nov-2010 Intent ([id number])By: Mona Merritt LPN Comments: Lot #[id number]-01/02/12Site- left arnDose 0.7given by:Eveline ZOSTER VACC, MA ([id number])By: René On: 30-Nov-2010 Intent Mona CARDENAS ADMINISTRATION OF INFLUENZA VIRUS On: 23-May-2010 Intent VACCINE (G0008)By: Ailyn Jones RN FLU VAC, SPLIT, >3 YEARS, On: 23-May-2010 Intent INTRAMUSC ([id number])By: Robert ROYAL, Comments: Lot #: [id number] date: mount given: 0.5 mlRoute: IMSite given: left deltoidGiven by: LELE Nguyen DXA, BONE DENSITY, AXIAL SKELETON On: 09-May-2010 Intent ([id number])By: Brittany Abraham DO Comments: nov MAMMOGRAM, SCREENING, BOTH BREASTS On: 09-May-2010 Intent ([id number])By: Brittany Abraham DO Comments: end jun Doppler Ultrasound OtherBy: [place] On: 27-Dec-2009 Intent Sara HENRY E Tia HENRY, Sara Mc Comments: left leg, today, call wet read Radiology - Foot - LeftBy: [place] On: 27-Dec-2009 Intent Sara HENRY E Tia HENRY, Sara Mc Comments: today call wet read MAMMOGRAM, SCREENING, BOTH BREASTS On: 24-Jun-2009 Intent ([id number])By: Maral Krishnan Inhaler Demo ([id number])By: Shelton RUIZ, On: 09-Jun-2009 Intent [facility] Radiology - Chest- PA and LatBy: On: 09-Jun-2009 Intent Chikis Peoples DO Aerosol Treatment ([id number])By: On: 09-Jun-2009 Intent Chikis Peoples DO Comments: less irritablilty Wax Currettes ([id number])By: Shelton On: 09-Jun-2009 Intent Chikis RUIZ Comments: tolerated well - clean -currette used Ear Irrigation ([id number])By: Shelton On: 09-Jun-2009 Intent Chikis RUIZ Comments: pt tolerated well Spirometry ([id number])By: Shelton RUIZ On: 09-Jun-2009 Intent Chikis Comments: poor effort started to have coughing fit FLU VAC, SPLIT, >3 YEARS, On: 19-May-2009 Intent INTRAMUSC ([id number])By: Ailyn Jones RN IMMUNIZ ADMNIN, 1 VAC, SNGL/COMBO On: 19-May-2009 Intent ([id number])By: Ailyn Jones RN Echo CompleteBy: Brittany Abraham DO On: 23-Feb-2009 Intent Echo CompleteBy: Brittany Abraham DO On: 10-Jan-2009 Intent PNEUM VAC ADLT/IMUMNOSPR, On: 02-Aug-2008 Intent SBC/INTRM ([id number])By: Ran, Comments: Lot #[id number] date:mount given:0.5Site given: right deltoidGiven by:Wf. Rios ADMINISTRATION OF PNEUMOCOCCAL On: 02-Aug-2008 Intent VACCINE (G0009)By: Blanca Tong DXA, BONE DENSITY, AXIAL SKELETON On: 06-Apr-2008 Intent ([id number])By: Fast DO, Brittany A FLU VAC, SPLIT, >3 YEARS, On: 13-Jun-2007 Intent INTRAMUSC (29510)By: Savannah Vargas IMMUNIZ ADMNIN, 1 VAC, SNGL/COMBO On: 13-Jun-2007 Intent ([id number])By: Savannah Vargas Overnight Pulse Ox([id number])By: On: 05-May-2007 Intent Blanca Tong Echo CompleteBy: Fast DO, Brittany A On: 18-Apr-2007 Intent Overnight Pulse OX ([id number])By: Fast On: 18-Apr-2007 Intent DO, Brittany A MAMMOGRAM, SCREENING, BOTH BREASTS On: 14-May-2006 Intent ([id number])By: Jarad DO, Brittany A EKG ([id number])By: Fast DO, Brittany A On: 14-May-2006 Intent Echo CompleteBy: Fast DO, Brittany A On: 14-May-2006 Intent Planned Medications INJECTION, CEFTRIAXONE SODIUM, PER 250 MG Ordered: 06-Aug-2017 Pending Kaykay Layne INJECTION, METHYLPREDNISOLONE SODIUM SUCCINATE, UP TO 125 MG Ordered: 08-Aug-2017 Pending Kaykay Layne Instructions Name Dates Details CKD (chronic kidney disease), stage III : DISCONTINUED - CBC, PLATELETS & AUT DIFF ([id number]) Indication: CKD (chronic kidney disease), stage III CKD (chronic kidney disease), stage III : DISCONTINUED - METABOLIC PANEL, COMPREHENSIVE (47972) Indication: CKD (chronic kidney disease), stage III [...] fibrillation : DISCONTINUED - PT (PROTHROMBIN TIME) (45106) Indication: Atrial fibrillation Atrial fibrillation : DISCONTINUED - PT (PROTHROMBIN TIME) (98189) Indication: Atrial fibrillation Lower GI bleed : DISCONTINUED - CBC, PLATELETS & AUT DIFF (19697) Indication: Lower GI bleed Lower GI bleed : DISCONTINUED - METABOLIC PANEL, COMPREHENSIVE (73501) Indication: Lower GI bleed Diabetes mellitus type [...] : DISCONTINUED - Hemoglobin Glyclated (HGB A1C) (18363) Indication: Diabetes mellitus type II, controlled Osteopenia : DISCONTINUED - Vitamin D Hydroxy (62061) Indication: Osteopenia Essential hypertension with goal blood pressure less than 130/80 : DISCONTINUED - METABOLIC PANEL, COMPREHENSIVE (01155) Indication: Essential hypertension with goal blood pressure less than 130/80 Other chronic nonalcoholic liver disease : DISCONTINUED - SHOUR-MOMXOYAHKXR-GSCKQ (88804) Indication: 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 : DISCONTINUED - PTT (Activated Partial Thromboplastin Time) (12203) Indication: 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 : DISCONTINUED - PT (PROTHROMBIN TIME) (71923) Indication: Other chronic nonalcoholic liver disease Atrial fibrillation : DISCONTINUED - PT (PROTHROMBIN TIME) (15831) Indication: Atrial fibrillation Atrial fibrillation : DISCONTINUED - PT (PROTHROMBIN TIME) (24581) Indication: Atrial fibrillation Atrial fibrillation : DISCONTINUED - BLD CNT, COMPL CBC W/AUTO DIFF WBC (91159) Indication: Atrial fibrillation Anemia, unspecified : DISCONTINUED - CBC WITH MANUAL DIFF (95779) Indication: Anemia, unspecified Mild vitamin D deficiency : DISCONTINUED - Vitamin D Hydroxy (04006) Indication: Mild vitamin D deficiency Mild vitamin D deficiency : DISCONTINUED - Vitamin D Hydroxy (72002) Indication: Mild vitamin D deficiency Abnormal glucose tolerance test : DISCONTINUED - METABOLIC PANEL, COMPREHENSIVE (61180) Indication: Abnormal glucose tolerance test Abnormal glucose tolerance test : DISCONTINUED - METABOLIC PANEL, COMPREHENSIVE (10818) Indication: Abnormal glucose tolerance test Mixed dyslipidemia : DISCONTINUED - LIPID PANEL (55521) Indication: Mixed dyslipidemia Mixed dyslipidemia : DISCONTINUED - LIPID PANEL (21344) Indication: Mixed dyslipidemia Mixed dyslipidemia : DISCONTINUED - HEPATIC FUNCTION PANEL (97657) Indication: Mixed dyslipidemia Anemia, unspecified : DISCONTINUED - CBC WITH MANUAL DIFF (99873) Indication: Anemia, unspecified Diabetes mellitus type 2, [...] Note for Transition into care: Again to [facility] End: 24-Mar-2018 10:05 n for GI Bleed 03-16-18 Dr. Graham..... Gi doce at [facility] , A pos. on 03-19 Bunm 19 creat 1.53 last hemoglobin on 03-19 discharge date 8.4. Got iron infusion at [facility] and to get on Sat. by Dr. Michelle She wi ll see Dr. Pacheco he is GI at [facility] Mar [address] Graham saw [...] Note for Transition into care: Sent to [facility] for acute blood loss from coumadin, found ulcertations in the duodenum , no dieulofay lesions or AVM's procedue done by An Olmos. Got 2 units FFP and 8 units of blood, at [place] and 6 more at [facility]. INR was 3.7 and day before 2.1Pt [...] reevaluate ??Asking if still needs to see fourth officer Dr. Jean-Baptisteting periodic infusions and iron supplements, [...] reevaluate Asking if still needs to see fourth officer Dr. Caruso periodic infusions and iron supplementsEncounter [...] for chroni c medical issues: Seeing new roll skinner Dr. Merchant Has had iron levels and iron infusions . Asking if still needs to see fourth officer Dr. MccurdyGetting periodic infusions and iron supplements, [...] explosive GI Bleed wten tot ER at [facility] with CBC with hemoglobin of 8.7 then to 7.9 given a unit of blood, See by Dr. Hobbs for lower GI bleed with colonoscopy found bleeding diverticuli . Dr. Anaya hospitalist . Was on coumadin but taken off Encounter Diagnosis: GA (myocardial infarction), Nonsmoker, Lower GI bleed, BMI [...] (276.7), Sepsis, Anemia, unspecified, Iron deficiency anemia, GA (myocardial infarction) [facility] Office Visit [...] patient does not have 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 of shellfish shucker or living will. The patient has noticed lack of energy. Other providers contributing to the patient's care are event mgr (Dr. Raymundo), flight paramedic (Leslie) and other: (chiropractor- once monthly). 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 The patient has noticed lack of energy. Other providers contributing to the patient's care are event mgr (Dr. Raymundo) and other: (chiropractor- once monthly). [...] to 110's/60's). Note for Follow up for starch dumper karrie medical issues: she had uloric - [...] Mixed (272.2), Hypertension (401.0), Coronary atherosclerosis of nome coronary vessel (414.01), Osteopenia (733.90) [facility] [...] for ER visit: note: (Pt. was at [facility] for Heart cath. 07-30-2006). The patient [...] (427.31), Hyperlipidemia, Mixed (272.2), Coronary atherosclerosis of nome coronary vessel (414.01) [facility] Historical [...]
--- OUTSIDE RECORDS SUMMARY | 2018-11-06 12:15 | XMS RPT_ITS | Continuity of Care Document ---
:1945 Author Organization [facility] Address [facility] [address] Phone Care Team Providers Name Role Phone Sara Swartz CNP Unavailable Jarad Brittany RUIZ Gordo Unavailable Natalia Mccurdy Unavailable Mackenzie Blanton Unavailable Unavailable Long ENVIRONMENTAL PROTECTION GEOLOGIST, Mona Kemp Unavailable Unavailable Jayda Frias Unavailable Unavailable Alana Mathis Unavailable Unavailable Vishal Bradford Unavailable Unavailable Slarb ENVIRONMENTAL PROTECTION GEOLOGIST, Alana Unavailable Unavailable Unavailable Unavailable Problems Name [...] creat 1.75 Status: Active 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, 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) Comments: catheterization: many [...] diet and exercise.Patient has 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 of deputy commonwealth's attorney and living will.( and daughter) Status: [...] Hypoxia (R09.02, 799.02) Comments: prescribed oxygen by [facility] at discharge, will ask her to [...] GI bleed (K92.2, 578.9) Comments: Admitted to [facility] with hemoglobin, 5.2 got 7 units of blood, was 8.7 on February 10, 2018,8.5 on Holly 18, 2018Admitted to [facility] 03-19-18 with GI bleed last hemoglobin 03-19 is 8.4 Status: Active Lymphedema (I89.0, 457.1) [facility] Status: Active KS (myocardial infarction) (I21.9, 410.90) Comments: per elevated [...] 278.01) Comments: 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 [employer] [facility] [employer] work Status: 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, [...] atreium Left atrium enlargement, Rigoberto sending to [facility] main campus for eval Status: Active [...] Refills: 0 Ordered:20-May-2017 Tiffanihamiltongordo HENRY Sara Raymond HARDENING MACHINE OPERATOR, Sara Mc Start : 20-May-2017 Active Furosemide 40 MG Oral Tablet 1 (one) Tablet daily for 0 days Quantity: 90 {Tablet} Refills: 3 Ordered:06-Mar-2018 Tia HARDENING MACHINE OPERATOR, Sara Raymond HARDENING MACHINE OPERATOR, Sara Mc Start : 06-Mar-2018 Active HydrALAZINE HCl 25 MG Oral Tablet 1 Tablet bid for 90 days Quantity: 180 {Tablet} Refills: 3 Ordered:10-Jun-2018 Tia CARL Sara Raymond HARDENING MACHINE OPERATOR, Sara Mc Start : 10-Jun-2018 Active LANCETS (Miscellaneous) 1 (one) Misc daily for 0 days Quantity: 100 {Misc} Refills: 3 Ordered:31-Oct-2012 Ariane Hartman Start : 28-Jul-2012 Active Comments:Reli-On Lancets Magnesium Oxide 400 (240 Mg) MG Oral Tablet 1 (one) Tablet qd for 0 days Quantity: 60 {Tablet} Refills: 4 Ordered:31-Dec-2016 Tia CARL Sara Raymond HARDENING MACHINE OPERATOR, Sara Mc Start : 31-Dec-2016 Active Metoprolol Tartrate 100 MG Oral Tablet 1 (one) Tablet bid for 90 days Quantity: 180 {Tablet} Refills: 3 Ordered:16-Apr-2018 Tia CARL Sara Raymond HARDENING MACHINE OPERATOR, Sara Mc Start : 16-Apr-2018 Active Multivitamins [...] Allergy 32 MCG/ACT Nasal Suspension 2 (two) [place] In each nostril Daily for 1 days [...] Quantity: 30 {Tablet} Refills: 0 Ordered:01-May-2011 Tia HARDENING MACHINE OPERATOR, Sara Raymond HARDENING MACHINE OPERATOR, Sara Mc Start : 01-May-2011 End : 01-May-2011 Discontinued CO-Q 10 Magalia-3 Fish Oil Oral Capsule 1 (one) Capsule [...] 20-May-2017 End : 10-Jun-2018 Discontinued VITAMIN D, 70558HGNT (Oral Capsule) 1 (one) Capsule q week for 0 days Quantity: 12 {Capsule} Refills: 0 Ordered:03-Feb-2010 Ariane Hartman Start : 03-Feb-2010 End : 31-Aug-2011 Discontinued Comments:This order discontinued per [facility]. VYTORIN, 10-20MG (Oral Tablet) 1 Tablet QD [...] Comments: secondary to sepsis, dehyrdation, and ? KS now improving was 2.05 now 1.21 going [...] Visit Report Result: Comments: See Note; NOTES: [facility] [place] [address] OFFICE VISIT Date of Service: 05/27/18 1342 MR#: [id number] Acct: [id number] Name: GABBI ROLLE Rep #: [id number] : 1945 From: Halley Khan MD Age/Sex: [...] GI bleed and was urgently transferred to [facility] where she underwent a nuclear medicine GI [...] GI blood loss Despite oral iron supplementation (residential), . Patient was transfused with packed red [...] Q4H PRN PRN 01/03/18 [Combivent Respimat Inhal [place]] Furosemide [Lasix] 40 mg PO BID 01/15/18 Primary Care Provider: Sara Swartz Refer [facility] Provider: Halley Khan MD 05/27/18 1411 <Electronically signed by Halley Khan MD> Date Halley Khan MD Cosigner Signature: Date (if applicable) CC: 26-May-2018 Cardiology Visit Report Result: Comments: See Note; NOTES: [facility] [address] [place] [address] OFFICE VISIT Date of Service: 05/26/18 MR#: [id number] Acct: [id number] Name: GABBI ROLLE Rep #: [id number] : 1945 Provider: Niraj Raymundo MD Age/Sex: 73/F [place] [facility] Status: Signed HPI HPI Chief Complaint: [...] syncopal episodes. She continues to see the information assoc for follow-up of her blood work. 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 Atherosclerosis of tangirnaq coronary artery of tangirnaq heart without angina pectoris I25.10 [facility]: 6; 04/10/17 Plan She has minimal [...] N18.3 Plan She does have evidence of type bar and segment assembler karrie kidney disease as noted above [...] possible. Plan Detail Follow Up 3 Months (voip engineer) Coding Level of Care Code Off vis,est,level 5 Diagnoses Nonrheumatic aortic (valve) stenosis I35.0 Nonrheumatic mitral (valve) insufficiency I34.0 Othe r secondary pulmonary hypertension I27.29 Essential hypertension I10 Hypertension type: essential hypertension Chronic atrial fibrillation I48.2 Atherosclerosis of tangirnaq coronary artery of tangirnaq heart without angina pectoris I25.10 [place] vs. transplanted heart: tangirnaq heart CKD (chronic kidney disease), stage III N18.3 Anemia, unspecified type D64.9 Anemia type: unspecified type Coding Level of C are Code Off vis,est,level 5 Diagnoses Nonrheumatic aortic (valve) stenosis I35.0 Nonrheumatic mitral (valve) insufficiency I34.0 Other secondary pulmonary hypertension I27.29 Essential hypertension I1 0 Hypertension type: essential hypertension Chronic atrial fibrillation I48.2 Atherosclerosis of tangirnaq coronary artery of tangirnaq heart without angina pectoris I25.10 [place] vs. transplanted heart: lashell ve heart CKD (chronic kidney disease), stage III N18.3 Anemia, unspecified type D64.9 Anemia type: unspecified type 05/26/18 1541 <Electronically signed by Niraj Raymundo MD> Date Niraj Raymundo MD Cosigner Signature: Date (if applicable) CC: Sara Swartz DANIELE 23-May-2018 Echo Transesophageal (YOUNG) Result: Comments: See Note; NOTES: [facility] Cardiovascular Services [address] [place] [address] Echo Transesophageal (YOUNG) 05/23/18 0924 MR#: [id number] Acct: [id number] Name: GABBI GATES Rep #: [id number] : 1945 73 From: Niraj Raymundo MD Attending Dr: Niraj Raymundo MD Status: REG CLI Ordering Dr: Niraj Raymundo MD Date: 05/23/18 Location: [facility] Sex: F C Admitted: Reason For Study: Aortic Stenosis Medication YOUNG probe passed with minimal difficulty. No complications were noted. Topex Topical [place] given X4 metered doses orally. Versed 2 [...] Date Niraj Raymundo MD CC: Sara caro NATIONAL SALES DIRECTOR; Niraj Raymundo MD Date Dictated: 05/23/18 0924 Date Transcribed: 05/23/181511 Delinquent Tax Collection Assistant: Signed 16-May-2018 12 Lead EKG performed by ABHAY Result: Comments: See Note; NOTES: [facility] [address] [place] [address] 12 Lead EKG performed by ABHAY 05/16/18 0957 MR#: [id number] Acct: [id number] Name: GABBI RODAS Rep #: [id number] : 1945 72 From: Niraj Raymundo MD Attending Dr: Niraj Raymundo MD Status: DEP AMB Ordering Dr: Niraj Raymundo MD Date: 05/16/18 [place] [facility] [place] Sex: F C Admitted: ORDER # : [id number] BMS/12 Lead EKG performed by [facility] Possible atrial fibrillation Low voltage -possible pulmonary disease. ABNORMAL 05/19/18 0730 <Electronically signed by Niraj Raymundo MD> John e Niraj Raymundo MD CC: Sara Swartz NP Date Dictated: 05/16/18956 Date Transcribed: 05/16/18956 Delinquent Tax Collection Assistant: CO Signed 03-May-2018 Echocardiogram Complete Result: Comments: See Note; NOTES: [facility] Cardiovascular Services [address] [place] [address] Echo Complete 05/02/18 1405 MR#: [id number] Acct: [id number] Name: GABBI ROLLE Rep #: [id number] : 1945 72 From: Niraj Raymundo MD [...] ____ Niraj Raymundo MD CC: Sara Swartz NATIONAL SALES DIRECTOR; Niraj Raymundo MD Date Dictated: 05/02/18 1405 Date Transcribed: 05/03/18 1436 Delinquent Tax Collection Assistant: Signed 29-Apr-2018 Oncology Visit Report Result: Comments: See Note; NOTES: [facility] [address] [place] [address] OFFICE VISIT Date of Service: 04/29/18 1417 MR#: [id number] Acct: [id number] Name: GABBI ROLLE Rep #: [id number] : 1945 From: Halley Khan MD Age/Sex: [...] GI bleed and was urgently transferred to [facility] where she underwent a nuclear medicine GI [...] GI blood loss Despite oral iron supplementation (residential), . Patient was transfused with packed red [...] Q4H PRN PRN 01/03/18 [Combivent Respimat Inhal [place]] Furosemide [Lasix] 40 mg PO BID 01/15/18 Primary Care Provider: Sara Swartz Referring Provider: Halley Khan MD [id number] <Electronically signed by Halley Khan MD> Date Halley Khan MD Cosigner Signature: Date (if applicable) CC: 29-Apr-2018 Cardiology Visit Report Result: Comments: See Note; NOTES: [facility] [address] [place] [address] OFFICE VISIT Date of Service: 04/29/18 MR#: [id number] Acct: [id number] Name: GABBI ROLLE Rep #: [id number] : 1945 Provider: Niraj Raymundo MD Age/Sex: 72/F [place] [facility] Status: Signed [facility] Chief Complaint: Follow up Details: [...] syncopal episodes. She continues to see the information assoc for follow-up of her blood work. Her [...] Confirmed 04/29/18] Ipratropium/Albuterol Sulfate [Combivent Respimat Inhal [place]] 2 puff IH Q 4H PRN PRN [...] PO PRN PRN 04/29/18 [History Confirmed 04/29/18] [facility] Medical History Atherosclerotic heart disease of tangirnaq zita 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 pectoris (Chronic) [...] vessel or lesion type , unspecified whether tangirnaq or transplanted heart I25.10 Plan She does [...] above. Plan Detail Follow Up 4 Months ([facility]) Coding Level of Care Code Off vis,est,level 5 Diagnoses Chronic atrial fibrillation I48.2 Essential hypertension I10 Hypertension type: essential hypertension Coronary artery disease, angina p resence unspecified, unspecified vessel or lesion type, unspecified whether tangirnaq or transplanted heart I25.10 Coronary Disease-Associated Artery/Lesion type: unspecified vessel or lesion type [place] v s. transplanted heart: unspecified whether tangirnaq or transplanted heart Associated angina: angina presence [...] unspecified vessel or lesion type, unspecified whether tangirnaq or transplanted heart I25.10 Coronary Disease-Associated Artery/Lesion type: unspecified vessel or lesion type [place] vs. transplanted heart: unspecified whether tangirnaq or transplanted heart Associated angina: angina presence [...] Visit Report Result: Comments: See Note; NOTES: [facility] [address] [facility] [place] [address] OFFICE VISIT Date of Service: 04/02/18 1329 MR#: [id number] Acct: [id number] Name: GABBI ROLLE Rep #: [id number] : 1945 From: Halley Khan MD Age/Sex: [...] GI bleed and was urgently transferred to [facility] where she underwent a nuclear medicine GI [...] GI blood loss Despite oral iron supplementation (salvage determiner), . Patient was transfused with packed red [...] Q4H PRN PRN 01/03/18 [Combivent Respimat Inhal [place]] Furosemide [Lasix] 40 mg PO BID 01/15/18 Primary Care Provider: Sara Swartz Referring Provider: Halley olivares MD 04/02/18 1419 <Electronically signed by Halley Khan MD> Date Halley Khan MD Cosigner Signature: Date __ (if applicable) CC: 05-Mar-2018 Oncology Visit Report Result: Comments: See Note; NOTES: [facility] [address] [place] [address] OFFICE VISIT Date of Service: 03/05/18 1431 MR#: [id number] Acct: [id number] Name: GABBI ROLLE Rep #: [id number] : 1945 From: Halley Khan MD Age/Sex: [...] GI bleed and was urgently transferred to [facility] where she underwent a [facility] medicine GI blood loss imaging followed [...] Dr. Hobbs, ) despite oral iron supplementation (salvage determiner) . Patien t was transfused with packed [...] sa Referring Provider: Halley Khan MD 03/05/18 5400 <Electronically signed by Halley Khan MD> Date Halley yee Signature: Date (if applicable) CC: 27-Feb-2018 12 Lead Electrocardiogram Result: Comments: See Note; NOTES: [facility] Cardiovascular Services [address] [place] [address] 12 Lead EKG 02/23/18 1015 MR#: [id number] Acct: [id number] Name: GABBI ROLLE Rani p #: [id number] : 1945 72 From: Saleem Zavala MD [...] ECG Confirmed by SALEEM ZAVALA MD ([id number]), editorial writer JOSE GUADALUPE ROLLEETTE ([id number]) on 02/27/2018 1:03:39 PM Referred By: Sara Swartz Confirmed By:SALEEM ZAVALA MD 02/27/18 1303 Date __ Saleem Zavala MD CC: Sara Swartz NP; Nelson Soria MD Signed 23-Feb-2018 Emergency Department Summary Result: Comments: See Note; NOTES: [facility] Medical Records Department [address] [place] [address] Emergency Department Summary 02/23/18 1009 MR#: [id number] Acct: [id number] Name: GABBI ROLLE Rep #: [id number] : 1945 72 From: Nelson Soria MD [...] recently hospitalized about 3 weeks ago at [facility] for GI bleed. She was seen here initially, and was found to be significantly anemic with a supra therapeutic INR. She was started on a Protonix drip. S he underwent a bleeding scan which showed 2 areas of bleeding from the duodenum and the ascending colon. Given her multiple comorbidities, she was transferred to the ICU at [facility]. While there, patient was transfused. She [...] based on her recent hospitalization at [facility] and multiple comorbidities, it was thought that she would best be served back at a tertiary facility. Patient was started on a Protonix drip given history of duodenal ulcer and bleeding. The patie nt was discussed with Dr. Rowe at [facility] who excepted the patient transfer. She will be transferred to the intensive care unit. Treatment Plan: [] Disposition: Transfer Impression: 1. GI bleed 2. Symptomatic anemia This note was generated with [employer] dictation software. It may contain incorrect words, [...] problems, contact your Primary Care Provider. Call [facility] ([phone]) or report to the closest Emergency Room. Call 911 if necessary. 02/23 1228 <Electronically signed by Nelson Soria MD> Date Nelson Soria MD Cosigner Signature (If Indicated): Date CC: Sara Swartz NP 23-Feb-2018 Chest 1 View (Portable) Result: Comments: See Note; NOTES: [facility] Imaging Services [address] [place] [address] Chest 1 View (Portable) MR#: [id number] Acct: [id number] Name: GABBI ROLLE Rep #: [id number] : 1945 F 72 From: Heriberto Dickey PCP: Sara Swartz NP Status: REG ER Study: Chest 1 View (Portable) Date of Exam: 02/23/18 Exam# [id number] Ordering Dr: Nelson Soria MD STUDY: X-RAY [...] CC: Sara Swartz NP; Nelson Soria MD Delinquent Tax Collection Assistant: Signed 06-Feb-2018 12 Lead Electrocardiogram Result: Comments: See Note; NOTES: [facility] Cardiovascular Services [address] [place] [address] 12 Lead EKG 02/04/18 1427 MR#: [id number] Acct: [id number] Name: GABBI ROLLE Re p #: [id number] : 1945 72 From: Niraj Raymundo MD [...] ECG Confirmed by RIGOBERTO BALDWIN, NIRAJ ([id number]), editorial writer JONATHON ROLLE ([id number]) on 02/06/2018 9:00:22 AM Referred By: SAMMIE Confirmed By:NIRAJ RAYMUNDO MD 02/06/18 0900 Date Niraj Raymundo MD CC: Sara Swartz NP; Hayde Ruvalcaba DO Signed 04-Feb-2018 Emergency Department Summary Result: Comments: See Note; NOTES: [facility] Medical Records Department [address] [place] [address] Emergency Department Summary 02/04/18 1225 MR#: [id number] Acct: [id number] Name: GABBI ROLLE Rep #: [id number] : 1945 72 From: Hayde Ruvalcaba DO [...] is pe nding Treatment Plan: [Transfer to [facility] I discussed case with parking enforcement manager who accepted transfer of the patient. I did give patient 5 mg of vitamin K subcu. Disposition: [Transfer] Impre ssion: Upper GI bleed and lower GI bleed [] This note was generated with [employer] software. It may contain incorrect words, spelling, [...] your Primary Care Provider. Call [facility] ([phone]) or report to the closest Emergency Room. Call 911 if necessary. 02/04/18 1715 <Electronically signed by Hayde Ruvalcaba DO> Date Hayde Ruvalcaba DO Cosigner Signature (If Indicated): Da te CC: Sara Swartz NP 04-Feb-2018 GI Bleed Scan Result: Comments: See Note; NOTES: [facility] Imaging Services [address] [place] [address] GI Bleed Scan MR#: [id number] Acct: [id number] Name: GABBI ROLLE Rep #: [id number] : 1945 F 72 From: Manuel Montoya MD PCP: Sara Swartz NP Status: REG ER Study: GI Bleed Scan Date of Exam: 02/04/18 Exam# [id number] Ordering Dr: Hayde Ruvalcaba DO NM GI [...] , NM/GI Bleed Scan CC: Sara Swartz NATIONAL SALES DIRECTOR; Hayde Ruvalcaba DO Delinquent Tax Collection Assistant: Signed 29-Jan-2018 Oncology Visit Report Result: Comments: See Note; NOTES: [facility] [address] [place] [address] OFFICE VISIT Date of Service: 01/29/18 1339 MR#: [id number] Acct: [id number] Name: GABBI ROLLE Rep #: [id number] : 1945 From: Halley Khan MD Age/Sex: [...] consider capsule study) despite oral iron supplementation (residential) . Patient was transfused with packed red [...] puff IH DAILY 01/03/18 [Combivent Respimat Inhal [place] ] Furosemide [Lasix] 40 mg PO BID 01/15/18 Primary Care Provider: Sara Swartz Referring Provider: Halley Khan MD 01/29/18 5552 <Electronically signed by Halley Khan MD> John e Halley Khan MD Cosigner Signature: Date (if applicable) CC: Sara Swartz 16-Jan-2018 Surgery Visit Report Result: Comments: See Note; NOTES: [facility] [address] [place] [address] OFFICE VISIT Date of Service: 01/15/18 MR#: [id number] Acct: [id number] Name: GABBI ROLLE Rep #: [id number] : 1945 Provider: oB Madrid MD Age/Sex: 72/F Location: [facility] Status: Signed Intake Intake Visit [...] Confirmed 01/08/18] Ipratropium/Albuterol Sulfate [Combivent Respimat Inhal [place]] 1 puff IH DAILY 01/03/18 [History Confirmed 01/08/18] Furosemide [Lasix] 40 mg PO BID 01/15/18 [History Confirmed 01/15/18] PFSH Medical History Atherosclerotic heart disease of tangirnaq coronary artery with out angina pectoris (Chronic) [...] no longer needed. Bo Madrid MD Pager: [facility] [address] [place] [address], [address] [place] [address] Office: Fax: Coding Level of Care Code Global Post Op Diagnoses Encounter for insertion of venous access port Z45.2 01/16/18 0936 <Electronically signed by Bo Madrid MD> D ate Bo Madrid MD Cosigner Signature: Date (if applicable) CC: Sara Swartz NP 08-Jan-2018 Operative Report Result: Comments: See Note; NOTES: [facility] Medical Records Department [address] [place] [address] [place] [address] Operative Report 01/08/18 1157 MR#: [id number] Acct: [id number] Name: FINA ROLLE Rep #: [id number] : 1945 72 From: Bo Madrid MD PCP: Sara Swartz NP Status: REG SDC Y Location: [place] [address] Problem List (1) Encounter for insertion of venous access port Status: venetie (2) Anemia Status: Chronic Qualifiers: Anemia type: [...] x-ray will be obtained. Grafts/Implants Used: 8 Sami PowerPort and right IJ 01/08/18 1158 <Electronically signed by Bo Madrid MD> Date __ Bo Madrid MD CC: Sara Swartz NP; Bo Madrid MD Signed 08-Jan-2018 CXR for Line Placement Result: Comments: See Note; NOTES: [facility] Imaging Services [address] [place] [address] CXR for Line Placement MR#: [id number] Acct: [id number] Name: GABBI ROLLE Rep #: [id number] : 1945 F 72 From: Irvin Cho MD PCP: Sara Swartz NP Status[place] [facility] [place]: CXR for Line Placement Date of Exam: 01/08/18 Exam# [id number] Ordering Dr: Bo Madrid MD STUD Y: [...] Irvin Cho MD at 12:57 EDT Tel [phone], Service support , CC: Sara Swartz NP; Bo Madrid MD Delinquent Tax Collection Assistant: Signed 08-Jan-2018 Discharge Instruction Result: Comments: See Note; NOTES: [facility] Medical Records Department [address] [place] [address] Instructions for Home/Discharge Instructions 01/08/18 1155 MR#: [id number] Acct: [id number] Name: GABBI ROLLE Rep #: [id number] : 1945 72 From: Bo Madrid MD PCP: Tia SANABRIA, Sara Status: [place] [facility] [place] Diet: No Restrictions - Pain medication [...] 11/29/17 Ipratropium/Albute rol Sulfate [Combivent Respimat Inhal [place]] 1 puff IH DAILY 01/03/18 Primary Care Physician: Sara Swartz [Primary Care Provider] - Please Follow Up With: Bo Madrid MD When: call tomorrow to make 2 week follow up appt [phone] 01/08/18 1156 <Electronically signed by Bo Madrid MD> Date Bo Madrid MD CC: Sara Swartz NP 03-Jan-2018 Surgery Visit Report Result: Comments: See Note; NOTES: [facility] [address] [place] [address] OFFICE VISIT Date of Service: 01/03/18 MR#: [id number] Acct: [id number] Name: GABBI ROLLE Alexandro Rep #: [id number] : 1945 Provider: Bo Madrid MD Age/Sex: 72/F Location: [facility] Status: Signed Intake Vital Signs01/03/18 Height 5 ft 7 in 01/03/18 Weight: 378 lb 9 oz Body Mass Index (BMI) 59.3 Intake Visit Reasons: Port Placement Chief Complaint: port consult Binder Technician Required: No Is patient in pain?: No [...] Confirmed 01/03/18] Ipratropium/Albuterol Sulfate [Combivent Respimat Inhal [place]] 1 puff IH 01/03/18 [History Confirmed 01/03/18] Is last menstrual p eriod known: No Post menopausal: Yes Patient : No PFSH Medical History Atherosclerotic heart disease of tangirnaq coro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 pect veronika (Chronic) [...] the day of. Bo Madrid MD Pager: [facility] [address] [place] [address], [address] [place] [address] Office: Coding Level of Care Code Off vis,new,level 3 Diagnoses Encounter for insertion of venous access port Z45.2 8 1517 <Electronically signed by Bo Madrid MD> Date Bo Madrid MD Cosigner Signature: Date (if applicable) CC: Sara Swartz NATIONAL SALES DIRECTOR; Halley Khan MD 01-Jan-2018 Oncology Visit Report Result: Comments: See Note; NOTES: [facility] [address] [place] [address] OFFICE VISIT Date of Service: 01/01/18 1254 MR#: [id number] Acct: [id number] Name: GABBI ROLLE Rep #: [id number] : 1945 From: Halley Khan MD Age/Sex: [...] consider capsule study) despite oral iron supplementation (residential) . Patient was transfused with packed red [...] CXR (Obl/Decub/A/L) Result: Comments: See Note; NOT[facility]: [facility] [facility] Imaging Services [address] [place] [address] Special CXR (Obl/Decub/A/L) MR#: [id number] Acct: [id number] Name: GABBI ROLLE Rep #: [id number] : 1945 F 72 From: Geovanni Roper MD PCP: Sara Swartz NP Status: REG CLI Study: Special CXR (Obl/Decub/A/L) Date of Exam: 12/23/17 Exam# [id number] Ordering Dr: Carlos Nelson MD STUDY: X-RAY CHEST REASON FOR EXAM: Female, 72 years old. Dyspnea TECHNIQUE: Bilateral decubitus. COMPARISON: Radiographs of the same date.. FINDINGS: On the l eft there is a small layering pleural effusion. On the right no significant free- flowing fluid. Electronically Signed: Geovanni Roper MD at 16:00 EDT , Service support 08-26 [phone], RAD/Special CXR (Obl/Decub/A/L) CC: Sara Swartz NP; Carlos Nelson MD Delinquent Tax Collection Assistant: Signed 23-Dec-2017 Special CXR (Obl/Decub/A/L) Result: Comments: See Note; NOTES: [facility] Imaging Services [address] [place] [address] Special CXR (Obl/Decub/A/L) MR#: [id number] Acct: [id number] Name: GABBI ROLLE Rep #: [id number] : 1945 F 72 From: Geovanni Roper MD PCP: Sara Swartz NP Status: REG CLI Study: Special CXR (Obl/Decub/A/L) Date of Exam: 12/23/17 Exam# [id number] Ordering Dr: Carlos Nelson MD STUDY: X-RAY [...] CC: Sara Swartz NP; Carlos Nelson MD Delinquent Tax Collection Assistant: Signed 23-Dec-2017 Chest PA and Lateral Result: Comments: See Note; NOTES: [facility] Imaging Services [address] [place] [address] Chest PA and Lateral MR#: [id number] Acct: [id number] Name: GABBI ROLLE Rep #: [id number] : 1945 F 72 From: Geovanni Roper MD PCP: Sara Swartz NP Status: REG CLI Study: Chest PA and Lateral Date of Exam: 12/23/17 Exam# [id number] Ordering Dr: Carlos Nelson MD STUDY: X-RAY [...] , Service support , CC: Sara Swartz NATIONAL SALES DIRECTOR; Carlos Nelson MD Delinquent Tax Collection Assistant: Signed 06-Dec-2017 Oncology Visit Report Result: Comments: See Note; NOTES: [facility] Oncology [facility] [address] OFFICE VISIT Date of Service: 12/05/17 1029 MR#: [id number] Acct: [id number] Name: GABBI ROLLE Rep #: [id number] : 1945 From: Halley Khan MD Age/Sex: [...] consider capsule study) despite oral iron supplementation (residential) . Patient was transfused with packed red [...] View (Portable) Result: Comments: See Note; NOTES: [facility] Imaging Services [address] [place] [address] Chest 1 View (Portable) MR#: [id number] Acct: [id number] Name: GABBI ROLLE Rep #: [id number] : 1945 F 72 From: Norah Arreaga MD PCP: Sara Swartz NP Status: REG ER Study: Chest 1 View (Portable) Date of Exam: 11/29/17 Exam# [id number] Ordering Dr: Gabi Gardner MD STUDY: X-R [...] , Service support , CC: Sara Swartz NATIONAL SALES DIRECTOR; Gbai Gardner MD Delinquent Tax Collection Assistant: Signed 22-Nov-2017 12 Lead Electrocardiogram Result: Comments: See Note; NOTES: [facility] Cardiovascular Services [address] [place] [address] 12 Lead EKG 11/18/17 1440 MR#: [id number] Acct: [id number] Name: GABBI ROLLE Alexandro Saravia p #: [id number] : 1945 72 From: Niraj Raymundo MD [...] Abnormal ECG Confirmed by RIGOBERTONIRAJ ANNE MD ([id number]), editorial writer JONATHON ROLLE ([id number]) on 11/22/2017 12:57:07 PM Referred By: JOO Confirmed By:NIRAJ RAYMUNDO MD 11/22/17 1257 Date Niraj Raymundo MD CC: Sara Swartz NP; Ariane Lakhani MD Signed 18-Nov-2017 Emergency Department Summary Result: Comments: See Note; NOTES: [facility] Medical Records Department [address] [place] [address] Emergency Department Summary 11/18/17 1735 MR#: [id number] Acct: [id number] Name: GABBI ROLLE Rep #: [id number] : 1945 72 From: Ariane Lakhani MD [...] weeks to see benefit. She called her information assoc today to see if she needed to [...] Dyspnea This note was gene rated with [employer] dictation software. It may contain incorrect words, [...] your Primary Care Provider. Call [facility] ([phone]) or report to the closest Emergency Room. Call 911 if necessary. 11/18/171747 <Electronica lly signed by Ariane Lakhani MD> Date Ariane Lakhani MD Cosigner Signature (If Indicated): Date CC: Sara Swartz NATIONAL SALES DIRECTOR 18-Nov-2017 Discharge Instruction Result: Comments: See Note; NOTES: [facility] Medical Records Department [address] [address] Discharge Instruction 11/18/171739 MR#: [id number] Acct: [id number] Name: GABBI ROLLE Rep #: [id number] : 1945 72 From: Ariane Lakhani MD [...] your Primary Care Provider. Call [facility] ([phone]) or report to the closest Emergency Room. Call 911 if necessary. 11/18/17 1743 <Electronically signed by Ariane Lakhani MD> Date Ariane Lakhani MD Cosigner Signature (If Indicated): Date CC: Sara Swartz NP 18-Nov-2017 Chest PA and Lateral Result: Comments: See Note; NOTES: [facility] Imaging Services [address] [place] [address] Chest PA and Lateral MR#: [id number] Acct: [id number] Name: GABBI ROLLE Rep #: [id number] : 1945 F 72 From: Aaron Kenyon MD PCP: Sara Swartz NP Status: REG ER Study: Chest PA and Lateral Date of Exam: 11/18/17 Exam# [id number] Ordering Dr: Ariane Lakhani MD STUDY: X-RAY [...] , Service support , CC: Sara Swartz NATIONAL SALES DIRECTOR; Ariane Lakhani MD Delinquent Tax Collection Assistant: Signed 04-Nov-2017 Oncology Visit Report Result: Comments: See Note; NOTES: [facility] Oncology [address] [place] [address]. [place] [address] OFFICE VISIT Date of Service: 11/04/17 1252 MR#: [id number] Acct: [id number] Name: GABBI ROLLE Rep #: [id number] : 1945 From: Halley Khan MD Age/Sex: [...] with Dr. 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 Patient was transfused with packed red [...] mg PO DAILY 05/10/17 Primary Care Provider: Sraa Swartz Referring Provider: Halley Khan MD 11/04/17 1319 <Electronically signed by Trevor Khan MD> Date Halley Khan MD Cosigner Signature: Date (if applicable) CC: Sara Swartz; Heron Hobbs 19-Oct-2017 Urgent Care Visit Report Result: Comments: See Note; NOTES: [facility] [address] [place] [address] OFFICE VISIT Date of Service: 10/19/17 MR#: [id number] Acct: [id number] Name: GABBI ROLLE p #: [id number] : 1945 Provider: Serge DOE Age/Sex: 72/F [place] [facility] Status: Signed Intake Vital Signs10/19/17 Height 5 [...] PFSH Medical History 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 This note was generated with [employer] dictation software. It may contain incorrect words, [...] Visit Report Result: Comments: See Note; NOTES: [facility] [address] [place] [address]. [address] [place] [address] OFFICE VISIT Date of Service: 09/18/17 MR#: [id number] Acct: [id number] Name: GABBI ROLLE Rep #: [id number] : 1945 Provider: DANEILE Figueredo Age/Sex: 72/F [place] [facility] [place] Status: Signed HPI 4 M FU: Details: GABBI ROLLE, is a 72 F who [facility]. Patient has a history [...] radial Intake Visit Reasons: 4 M FU Binder Technician Required: No Accompanied by: None Is patient [...] PFSH Medical History Atherosclerotic heart disease of tangirnaq c oro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 pectoris (Chronic) [...] affect Assessment AND Plan 1. Atherosclerosis of tangirnaq coronary artery of tangirnaq heart without angina pectoris I25.10 [facility]: 07/30/2006; 04/10/17 ROSALIND King Patient's most [...] prior to saving. 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 transplanted heart: tangirnaq heart Chronic atrial fibrillation I48.2 Iron deficiency anemia, unspecifie d iron deficiency anemia type D50.9 Anemia type: iron deficiency Iron deficiency anemia type: unspecified iron deficiency Other secondary pulmonary hypertension I27.29 Nonrheumatic aortic (valve) stenos is I35.0 Essential hypertension I10 Hypertension type: essential hypertension Mixed hyperlipidemia E78.2 Hyperlipidemia type: mixed hyperlipidemia Coding Level of Care Code Off vis,est,level 3 Diagno ses Atherosclerosis of tangirnaq coronary artery of tangirnaq heart without angina pectoris I25.10 [place] vs. transplanted heart: tangirnaq heart Chronic atrial fibrillation I48.2 Iron deficiency anemia, unspeci fied iron deficiency anemia type D50.9 Anemia type: iron deficiency Iron deficiency anemia type: unspecified iron deficiency Other secondary pulmonary hypertension I27.29 Nonrheumatic aortic (valve) jamie nosis I35.0 Essential hypertension I10 Hypertension type: essential hypertension Mixed hyperlipidemia E78.2 Hyperlipidemia type: mixed hyperlipidemia 09/18/17 1515 <Electronically signed by Mendez Figueredo NATIONAL SALES DIRECTOR-C> Date Lazaro GARCIAC 09/20/17 1531<Electronically signed by Niraj Raymundo MD> Cosigner Signature: Date ____ (if applicable) Niraj Raymundo MD CC: Sara Swartz NP 06-Aug-2017 Chest PA and Lateral Result: Comments: See Note; NOTES: [facility] Imaging Services [address] [place] [address] Chest PA and Lateral MR#: [id number] Acct: [id number] Name: GABBI ROLLE Rep #: [id number] : 1945 F 72 From: Ariane Crook MD PCP: Sara Swartz NP Status: REG CLI Study: Chest PA and Lateral Date of Exam: 08/06/17 Exam# [id number] Ordering Dr: Kaykay Layne NATIONAL SALES DIRECTOR-Cassie STUDY: X-RAY C HEST REASON FOR EXAM: [...] Crook MD at 17:23 EST Tel Direct: [phone], Service support 08-26 [phone], CC: Sara Swartz NP; NATIONAL SALES DIRECTOR-C Kaykay Layne Delinquent Tax Collection Assistant: Signed 30-Jul-2017 Breast Limited Unilateral Result: Comments: See Note; NOTES: [facility] Imaging Services [address] [facility] [place] [address] Breast Limited Unilateral MR#: [id number] Acct: [id number] Name: GABBI ROLLE Rep #: [id number] : 1945 F 72 From: Irvin Cho MD PCP: Sara Swartz NP Status: REG CLI Study: Breast Limited Unilateral Date of Exam: 07/30/17 Exam# [id number] Ordering Dr: Sara Swartz STUDY: UL TRASOUND [...] Irvin Cho MD at 12:42 EST Tel [phone], Servic e support , CC: Sara Swartz NP Delinquent Tax Collection Assistant: Signed 23-Jul-2017 SCREENING MAMM (CAD), BILAT Result: Comments: See Note; NOTES: [facility] Imaging Services [address] [facility] [address] SCREENING MAMM (CAD), BILAT MR#: [id number] Acct: [id number] Name: GABBI ROLLE Rep #: [id number] : 1945 F 72 From: Irvin Cho MD PCP: Sara Swartz NP Status: REG CLI Study: SCREENING MAMM (CAD), BILAT Date of Exam: 07/23/17 Exam# [id number] Ordering Dr: Sara Swartz MAMMO GRAPHY - [...] delay biopsy of a clinically suspicious abnormality. [id number] El ectronically Signed: Irvin Cho MD at 9:57 EST Tel [phone], Service support , CC: Sara Swartz NP Delinquent Tax Collection Assistant: Signed 10-May-2017 History and Physical Exam Result: Comments: See Note; NOTES: [facility] Medical Records Department [address] [facility] [place] [address] History and Physical 05/10/17 1126 MR#: [id number] Acct: [id number] Name: Alvina ROLLE Rep #: [id number] : 1945 71 From: Halley Khan MD [...] iron but tends to recur. Power of Scrap Iron Cutter: Yes Living Will: Yes Health History: Past [...] Hemoptysis Gastrointestinal:: Reports: Hematochezia, - - Periodic [place] bleed, red no melena No reflux symptoms. [...] and Lateral Result: Comments: See Note; NOTES: [facility] Imaging Services [address] [facility] [address] Chest PA and Lateral MR#: [id number] Acct: [id number] Name: GABBI ROLLE Rep #: [id number] : 1945 F 71 From: Ariane Crook MD PCP: Sara Swartz Status: REG CLI Study: Chest PA and Lateral Date of Exam: 03/26/17 Exam# [id number] Ordering Dr: Niraj Raymundo MD STUDY: X-RAY [...] Ariane Crook MD at 20:49 EDT Tel [phone], Service support , CC: Sara Swartz; Niraj Raymundo MD Delinquent Tax Collection Assistant: Signed 05-Mar-2017 Venous Duplex Lower Extremity Result: Comments: See Note; NOTES: [facility] Cardiovascular Services [address] [place] [address] Venous Duplex US, Unilateral 03/05/17 1427 MR#: [id number] Acct: [id number] Name: GABBI MCGOVERN Rep #: [id number] : 1945 71 From: Francisco Ji MD Attending Dr: Heron Hobbs Status: REG CLI Ordering Dr: Heron Hobbs MD Date: 03/05/17 Location: [facility] Sex: F C Admitted: Reason [...] Date Dictated: 03/05/17 1427 Date Transcribed: 03/05/171601 Delinquent Tax Collection Assistant: Signed 04-Feb-2017 Kidney and Bladder Result: Comments: See Note; NOTES: [facility] Imaging Services [address] [place] [address] Verdana 4d Kidney and Bladder MR#: [id number] Acct: [id number] Name: GABBI ROLLE Rep # : [id number] : 1945 F 71 From: Irvin Galarza DO PCP: Sara Swartz Status: REG CLI Study: Kidney and Bladder Date of Exam: 02/04/17 Exam# [id number] Ordering Dr: Natalia Mccurdy DO STUDY: RENAL ULTRAS OUND - COMPLETE REASON FOR EXAM: Female, 71 years old. Chronic kidney disease stage III TECHNIQUE: Ultrasound evaluation of the kidneys was performed with real-time and static ruggiero-scale imaging. Ulule PARISON: None. FINDINGS: RIGHT KIDNEY: Normal location [...] Irvin Galarza DO at 22:55 EDT Tel [phone], Service support , CC: Sara Swartz; Natalia Mccurdy DO Delinquent Tax Collection Assistant: Signed 09-Dec-2016 Emergency Department Summary Result: Comments: See Note; NOTES: [facility] Medical Records Department [address] [place] [address] Emergency Department Summary MR#: [id number] Acct: [id number] Name: FINA ROLLE Rep #: [id number] : 1945 71 From: Maral Palacios MD [...] Dehydration. Maral Palacios MD T: NTS JOB: [id number] 12/09/16 0728 <Electronically signed by Maral Palacios MD> Date Maral Palacios MD Cosigner Signature (If Indicated ): Date CC: Sara Nixonyany Date Dictated: 12/09/1604 Date Transcribed: 12/09/16703 Delinquent Tax Collection Assistant: Signed 09-Dec-2016 Chest PA and Lateral Result: Comments: See Note; NOTES: [facility] Imaging Services [address] [place] [address] Verdana 4d Chest PA and Lateral MR#: [id number] Acct: [id number] Name: GABBI ROLLE Rep #: [id number] : 1945 F 71 From: Aaron Kenyon MD PCP: Sara Swartz Status: REG ER Study: Chest PA and Lateral Date of Exam: 12/09/16 Exam# [id number] Ordering Dr: Maral Palacios MD STUDY: X-RAY [...] Tel , Service support , Fa x [phone] CC: Sara Swartz; Maral Palacios MD Delinquent Tax Collection Assistant: Signed 10-Sep-2016 Stress Test Echo w/o Contrast Result: Comments: See Note; NOTES: [facility] Cardiovascular Services [address] [place] [address] Verdana 4d Stress Test Echo w/o Contrast MR#: [id number] Acct: [id number] Name: GABBI WAY Rep #: [id number] : 1945 71 From: Niraj Raymundo MD [...] Dictated: 09/10/16 1258 Date Transcribed: 09/10/16 1523 Delinquent Tax Collection Assistant: Signed 27-Jul-2016 Bilat Scrn Digital AND CAD Result: Comments: See Note; NOTES: [facility] Imaging Services [address] [place] [address] Verdana 4d Bilat Scrn Digital AND CAD MR#: [id number] Acct: [id number] Name: GABBI ROLLE Rep #: [id number] : 1945 F 71 From: Irvin Cho MD PCP: Jacinto Sheehan Status: REG CLI Study: Bilat Scrn Digital AND CAD Date of Exam: 07/27/16 Exam# [id number] Ordering Dr: Jacinto Sheehan MAMMOGRAPHY - BILATERAL [...] delay biopsy of a clinically suspicious abnormality. [id number] Electronically Signed: Irvin Cho MD at 10:02 EST Tel [phone], Service support [phone], CC: Jacinto Sheehan Delinquent Tax Collection Assistant: Signed 11-Apr-2016 Dexa Bone Density/Append Skel Result: Comments: See Note; NOTES: [facility] Imaging Services [address] [place] [address] Ajaydamichael 4d Dexa Bone Density/Append Skel MR#: [id number] Acct: [id number] Name: SHAYM ROLLE Rep #: [id number] : 1945 F 70 From: Irvin Cho MD PCP: Jacinto Sheehan Status: REG CLI Study: Dexa Bone Density/Append Skel Date of Exam: 04/11/16 Exam# [id number] Ordering Dr: Jacinto Sheehan STUDY: DUAL ENERGY [...] Irvin Cho MD at 11:29 EDT Tel [phone], Ser vice support [phone], CC: Jacinto Sheehan Delinquent Tax Collection Assistant: Signed 26-Dec-2015 Liver Result: Comments: See Note; NOTES: [facility] Imaging Services [address] [place] [address] Verdana 4d Liver MR#: [id number] Acct: [id number] Name: GABBI ROLLE Rep # : [id number] : 1945 F 70 From: Irvin Cho MD PCP: Brittany Abraham DO Status: REG CLI Study: Liver Date of Exam: 12/26/15 Exam# [id number] Ordering Dr: Brittany Abraham DO STUDY: ABDOMINAL [...] Irvin Cho MD at 12:58 EDT Tel [phone], Service support [phone], CC: Brittany Abraham DO Delinquent Tax Collection Assistant: Signed 25-Jul-2015 Bilat Scrn Digital AND CAD Result: Comments: See Note; NOTES: [facility] Imaging Services [address] [place] [address] Verdana 4d Bilat Scrn Digital AND CAD MR#: [id number] Acct: [id number] Name: GABBI ROLLE Rep #: [id number] : 1945 F 70 From: Irvin Cho MD PCP: Brittany Abraham DO Status: REG CLI Study: Bilat Scrn Digital AND CAD Date of Exam: 07/25/15 Exam# [id number] Therese trujillo Dr: Brittany Abraham DO MAMMOGRAPHY [...] delay biopsy of a clinically suspicious abnormality. [id number] Electronically Signed: Irvin Cho MD at 8:59 EST Tel [phone], Service support [phone], CC: Brittany Abraham DO Delinquent Tax Collection Assistant: Signed 22-Jun-2015 Carotid Duplex Ultrasound Result: Comments: See Note; NOTES: [facility] Cardiovascular Services [address] [place] [address] Carotid Duplex Ultrasound 06/17/15 0851 MR#: [id number] Acct: [id number] Name: GABBI ROLLE Rep #: [id number] : 1945 70 From: Sharath Mortensen MD [...] the left vertebral artery. Procedure Carotid Duplex 56500. The exam was diagnostic. The study was [...] Date Dictated: 06/17/15 0851 Date Transcribed: 06/22/1540 Delinquent Tax Collection Assistant: Signed 24-Mar-2015 Pulmonary Function Report Comp Result: Comments: See Note; NOTES: [facility] Pulmonary Services/Neurology [address] [place] [address] Pulmonary Function Test (Comp) MR#: [id number] Acct: [id number] Name: GABBI WAY Rep #: [id number] : 1945 69 From: Pako Andre MD [...] edema. PAKO ANDRE MD T: NTS JOB: [id number] SPIROMETRY Ref ULN/LLN Pre Pre Post Post [...] Date Dictated: 1554 Date Transcribed: 03/22/15 155 Delinquent Tax Collection Assistant: Signed 11-Mar-2015 Echocardiogram Complete Result: Comments: See Note; NOTES: [facility] Cardiovascular Services [address] [place] [address] Echo Complete 03/11/15 1108 MR#: [id number] Acct: [id number] Name: Alvina ROLLE Rep #: [id number] : 1945 69 From: Niraj Raymundo MD Attending Dr: Niraj Raymundo MD Status: REG CLI Ordering Dr: Niraj Raymundo MD Date: 03/11/15 Location: [facility] Sex: F C Admitted: Rita fernandez This [...] Dictated: 03/11/15 1108 Date Transcribed: 03/11/15 1247 Delinquent Tax Collection Assistant: Signed 23-Jul-2014 Suha Terry Digital & CAD Result: Comments: See Note; NOTES: [facility] Imaging Services [address] [place] [address] Breast Imaging Report MR#: [id number] Acct: [id number] Name: GABBI ROLLE Rep #: [id number] : 1945 F 69 From: Irvin Cho MD PCP: Brittany Abraham DO Status: REG CLI Exam# [id number] Ordering Dr: Brittany Abraham DO MAMMOGRAPHY - [...] small lymph nodes. CC: Brittany Abraham DO Delinquent Tax Collection Assistant: Signed 29-Jun-2014 Knee 4 or More Views Result: Comments: See Note; NOTES: [facility] Imaging Services [address] [place] [address] Radiology Report MR#: [id number] Acct: [id number] Name: GABBI ROLLE Rep #: [id number] : 1945 F 69 From: Po Segovia DO PCP: Brittany Abraham DO Status: REG CLI Study: Knee 4 or More Views Date of Exam: 06/29/14 Exam# [id number] Ordering Dr: Brittany Abraham DO STUDY: X-RAY [...] at 6:27 EST Tel , Service support [phone], CC: Brittany Abraham DO Delinquent Tax Collection Assistant: Signed 29-Jun-2014 Knee 4 or More Views Result: Comments: See Note; NOTES: [facility] Imaging Services [address] [place] [address] Radiology Report MR#: [id number] Acct: [id number] Name: GABBI ROLLE Rep #: [id number] : 1945 F 69 From: Po Segovia DO PCP: Brittany Abraham DO Status: REG CLI Study: Knee 4 or More Views Date of Exam: 06/29/14 Exam# [id number] Ordering Dr: Brittany Abraham DO STUDY: X-RAY [...] 6:35 EST Tel , Service horton pport [phone], CC: Brittany Abraham DO Delinquent Tax Collection Assistant: Signed 08-Feb-2014 OT Discharge Summary Result: Comments: See Note; NOTES: [facility] Occupational Therapy [facility] [address] [place] [address]. [address] [place] [address] Fax REHABILITATION SERVIC ES DISCHARGE SUMMARY MR#: [id number] Acct: [id number] Name: GABBI ROLLE Rep #: [id number] : 1945 68 From: Flavia Metz Referring [...] was to receive compression g arments through [facility]. The order was faxed over to them for the compression garments. However, unaware if the patient received those garments. At this time, again the patient was to return fo r followup visits to ensure proper fitting of compression hose. At this time, she has not done so and is discharged. Flavia Metz, OTR/L T: NTS JOB: [id number] <Electronically signed by Flavia Metz > 02/08/14 1513 CC: Signed 22-Dec-2013 Initial Evaluation - OT Result: Comments: See Note; NOTES: [facility] Occupational Therapy [address] [place] [address] Fax [facility]#: [id number] Acct: [id number] Name: GABBI ROLLE Rep #: [id number] : 1945 68 From: Flavia Metz Referring DrYuli: Brittany Abraham DO Status: DIS RCR Insurance: M [employer]ER[employer] PART A B Eval Date: [facility] [place] DATE OF SERVICE: 12/15/2013 PHYSICIAN: Brittany Abraham [...] understanding. Flavia Metz OTR/L T: NTS JOB: [id number] <Electr onically signed by Flavia Metz > 12/22/13 1311 CC: Signed For Medicare only, by signing this I certify the plan of care. Physicians Signature Date 14-Dec-2013 Liver Result: Comments: See Note; NOTES: [facility] Imaging Services [address] [facility] [place] [address] Ultrasound Report MR#: [id number] Acct: [id number] Name: GABBI ROLLE Rep #: [id number] : 1945 F 68 From: Irvin Cho MD PCP: Brittany Abraham DO Status: REG CLI Study: Liver Date of Exam: 12/14/13 Exam# [id number] Ordering Dr: Brittany Abraham DO STUDY: ABDOMINAL [...] Irvin Cho MD at 10:02 EDT Tel [phone], Service support [phone], CC: Brittany Abraham DO Delinquent Tax Collection Assistant: Signed 18-Nov-2013 Chest PA and Lateral Result: Comments: See Note; NOTES: [facility] Imaging Services [address] [place] [address] Radiology Report MR#: [id number] Acct: [id number] Name: GABBI ROLLE Rep #: [id number] : 1945 F 68 From: Irvin Cho MD PCP: Brittany Abraham DO Status: REG CLI Study: Chest PA and Lateral Date of Exam: 11/18/13 Exam# [id number] Ordering Dr: Sara Swartz STUDY: X-RAY CHEST [...] M.D. at 15:41 EDT , Service support [phone], CC: Sara Swartz; Brittany Abraham DO Delinquent Tax Collection Assistant: Signed 03-Nov-2013 Chest PA and Lateral Result: Comments: See Note; NOTES: [facility] Imaging Services [address] [place] [address] Radiology Report MR#: [id number] Acct: [id number] Name: GABBI ROLLE Rep #: [id number] : 1945 F 68 From: Irvin Cho MD PCP: Brittany Abraham DO Status: REG CLI Study: Chest PA and Lateral Date of Exam: 11/03/13 Exam# [id number] Ordering Dr: Brittany Abraham DO STUDY: X- [...] M.D. at 11:18 EDT , Service support [phone], Fax CC: Brittany Abraham DO Delinquent Tax Collection Assistant: Signed 30-Jul-2013 Suha Terry Digital & CAD Result: Comments: See Note; NOTES: [facility] Imaging Services [address] [place] [address] Breast Imaging Report MR#: [id number] Acct: [id number] Name: GABBI ROLLE Rep #: [id number] : 1945 F 68 From: Irvin Cho MD PCP: Brittany Abraham DO Status: REG CLI Exam# [id number] Ordering Dr: Brittany Abraham DO MAMMOGRAPHY - [...] at 8:11 EST Tel , Service support [phone], CC: Brittany Abraham DO Delinquent Tax Collection Assistant: Signed 30-Jul-2013 Dexa Bone Density Study (HP) Result: Comments: See Note; NOTES: [facility] Imaging Services [address] [place] [address] Bone Density Report MR#: [id number] Acct: [id number] Name: GABBI ROLLE Rep #: : 1945 F 68 From: Irvin Cho MD PCP: Brittany Abraham DO Status: REG CLI Study: Dexa Bone Density Study (HP) Date of Exam: 07/30/13 Exam# [id number] Ordering Dr: Brittany Abraham DO STUDY: DUAL [...] M.D. at 9:58 EST , Service support [phone], CC: Brittany Abraham DO Delinquent Tax Collection Assistant: Signed Immunization Name Dates Details Influenza (3 [...] Height 0 in Head Circumference 0.00 cm 51-Oqa-367732:15 Temperature 97.6 f Comments: Method: Oral Pulse [...] Description Value Details :34 HgA1C , Office (27863) HgA1C , Office 5.4 % (Normal) Range: 4.6 - 7.1 :34 Blood Glucose , Office (74586) Blood Glucose , Office 145 (Normal) 61-Ygw-652993:14 Basic Metabolic Profile (BMP) Comments: [facility] [address] [place], [address] GAP 8 (Normal) Range: 5-15 CO2 28.0 [...] A.D.A. criteria.Please note revised GLUCOSE reference range fxhzovfgu43/02/2018. 19-Ozq-807232:14 PTHIN 127.7 pg/mL (Abnormal) Comments: [facility] [address] [place], [address] Range: 18.4-80.1 07-Wby-660904:47 Basic Metabolic Profile (BMP) Comments: [facility] [address] [place], [address] GAP 7 (Normal) Range: 5-15 CO2 25.0 [...] A.D.A. criteria.Please note revised GLUCOSE reference range olpgyvoof07/02/2018. 16-Tcv-369399:47 Renal Profile Comments: [facility] [address] [place], [address] CO2 25.0 mmol/L (Normal) Range: 21.0-32.0 CL [...] criteria.Please note revised GLUCOSE reference range /02/2018. 93-Klp-802781:46 CBC W/Diff, Automated Comments: Reason for Laboratory Test .[facility] [address] [place], [address] Absolute Lymph 0.69 {X10_3/ul} (Abnormal) Range: 0.83-4.51 [...] 4.2-5.4 WBC 4.6 K/mm3 (Normal) Range: 4.4-11.0 17-Ixq-009528:46 Ferritin Comments: Reason for Laboratory Test .[facility] [address] [place], [place], [address] FERRITIN 55 ng/mL (Normal) Range: 8-252 86-Ogm-274100:46 Iron+Iron Binding Capacity Comments: Reason for Laboratory Test .[facility] [address] [place], [address] IRON SATURATION 13.4 % (Abnormal) Range: 15.0-55.0 IRON 47 ug/dL (Abnormal) Range: 50-170 TIBC 350 ug/dL (Normal) Range: 250-450 01-Kvh-079382:45 Partial Thromboplast Time Comments: [place] [address] [place], [address] PTT 44.5 s (Abnormal) Range: 24.1-36.2 15-Nto-915497:45 Prothrombin Time w/INR Comments: [place] [address] [place], [address] INR 1.2 (Normal) PROTIME 15.0 s (Abnormal) Range: 11.7-14.9 0-Htg-059797:16 Renal Profile Comments: [place] [address] [place], [address] CO2 24.0 mmol/L (Normal) Range: [...] A.D.A. criteria.Please note revised GLUCOSE reference range aqyrpjaoj35/02/2018. 3-Hpo-070816:15 CBC W/Diff, Automated Comments: Reason for Laboratory Test .[facility] [address] [place], [place], [address] Absolute Lymph 0.91 {X10_3/ul} (Normal) Range: 0.83-4.51 [...] 4.2-5.4 WBC 4.2 K/mm3 (Abnormal) Range: 4.4-11.0 9-Klo-982588:15 Ferritin Comments: Reason for Laboratory Test .[facility] [address] [place], [place], [address] FERRITIN 44 ng/mL (Normal) Range: 8-252 8-Ipf-565313:15 Iron+Iron Binding Capacity Comments: Reason for Laboratory Test .[facility] [address] [place], [place], [phone] IRON SATURATION 11.8 % (Abnormal) Range: 15.0-55.0 IRON 42 ug/dL (Abnormal) Range: 50-170 TIBC 355 ug/dL (Normal) Range: 250-450 59-Dsa-335689:22 CBC W/Diff, Automated Comments: Reason for Laboratory Test DRAW BLOODBANK TUBE FOR TYPE AND [facility] [address] [place], [place], [address] Absolute Lymph 0.76 {X10_3/ul} (Abnormal) Range: 0.83-4.51 [...] 4.2-5.4 WBC 5.7 K/mm3 (Normal) Range: 4.4-11.0 5-Jjh-437577:39 Renal Profile Comments: [facility] [address] [place], [place], [address] CO2 24.0 mmol/L (Normal) Range: 21.0-32.0 CL [...] A.D.A. criteria.Please note revised GLUCOSE reference range jxmuxyrqr03/02/2018. 5-Cot-581377:04 CBC W/Diff, Automated Comments: Reason for Laboratory Test .[facility] [address] [place], [place], [address] Absolute Lymph 0.85 {X10_3/ul} (Normal) Range: 0.83-4.51 [...] 4.2-5.4 WBC 5.4 K/mm3 (Normal) Range: 4.4-11.0 5-Yym-688769:04 Ferritin Comments: Reason for Laboratory Test .[facility] [address] [place], [place], [address] FERRITIN 135 ng/mL (Normal) Range: 8-252 1-Tnw-513639:04 Iron+Iron Binding Capacity Comments: Reason for Laboratory Test .[facility] [address] [place], [place], [address] IRON SATURATION 31.9 % (Normal) Range: 15.0-55.0 IRON 117 ug/dL (Normal) Range: 50-170 TIBC 367 ug/dL (Normal) Range: 250-450 19-Xun-473289:26 CBC W/Diff, Automated Comments: [facility] [address] [place], [place], [address] Absolute Lymph 0.86 {X10_3/ul} (Normal) Range: 0.83-4.51 [...] 4.2-5.4 WBC 5.8 K/mm3 (Normal) Range: 4.4-11.0 32-Wes-769022:26 Comprehensive Metabolic Profil Comments: [facility] [address] [place], [place], [address] GAP 7 (Normal) Range: 5-15 CO2 27.0 [...] A.D.A. criteria.Please note revised GLUCOSE reference range snbzcgyhr12/02/2018. 86-Zjw-496139:36 Ferritin Comments: Reason for Laboratory Test .[facility] [address] [place], [place], [address] FERRITIN 54 ng/mL (Normal) Range: 8-252 86-Qeg-280817:36 Iron+Iron Binding Capacity Comments: Reason for Laboratory Test .[facility] [address] [place], [place], [address] IRON SATURATION 12.7 % (Abnormal) Range: 15.0-55.0 IRON 42 ug/dL (Abnormal) Range: 50-170 TIBC 331 ug/dL (Normal) Range: 250-450 10-Owb-651345:21 CBC-Complete Blood Cnt No Diff Comments: [facility] [address] [place], [place], [address] MPV 10.8 fL (Normal) Range: 6.2-12.0 PLT [...] 4.2-5.4 WBC 6.2 K/mm3 (Normal) Range: 4.4-11.0 8-Jyp-504485:15 CBC W/Diff, Automated Comments: [address] [place], [place], [address] Absolute Lymph 0.79 {X10_3/ul} (Abnormal) Range: 0.83-4.51 [...] 4.2-5.4 WBC 7.0 K/mm3 (Normal) Range: 4.4-11.0 5-Wfe-361178:15 Comprehensive Metabolic Profil Comments: [facility] [address] [place], [place], [address] GAP 8 (Normal) Range: 5-15 CO2 21.0 [...] A.D.A. criteria.Please note revised GLUCOSE reference range uiorxbgsc23/02/2018. 5-Jga-751557:15 Lactic Acid Comments: Yes/No query for Sepsis Lactate Rule [facility] [address] [place], [place], [address] LACTIC ACID 2.1 mmol/L (Abnormal) Range: 0.4-2.0 Comments: Critical Result(s) Called at: 10:59:09 02/23/2018 by: Juve House RN 2-Haf-654002:15 Partial Thromboplast Time Comments: [address] [place], [address] PTT 36.8 s (Abnormal) Range: 24.1-36.2 1-Skt-301965:15 Prothrombin Time w/INR Comments: [address] [place], [place], [address] INR 1.2 (Normal) PROTIME 15.2 s (Abnormal) Range: 11.7-14.9 0-Atl-995778:15 Troponin-I Comments: [address] [place], [place], [address] TROPONIN-I < 0.015 ng/mL (Normal) Comments: TROPONIN-I EXPECTED VALUES <0.045 Negative 0.045 - 0.590 Consistent with Cardiac Damage > OR = 0.600 Critical Value Not every elevated troponin is indicative of KS. T hesevalues should be used with clinical judgement in examiningthe patient's clinical picture for diagnosis. To establisha diagnosis of KS versus myocardial injury, there must be ademonstrated rise and/ or fall in the troponin values, inaddition to ischemic symptoms, EKG changes, new regionalwall motion abnormality, and/or angiographical evidence. PLEASE NOTE: REFERENCE RANGES EDITED 12/30/1717-Feb-20189-Jzl-199912:10 CBC W/Diff, Automated Comments: CMP, CBCD, PT FOR DR BOOKER ARE FOR [facility] [address] [place], [place], [address] Absolute Lymph 0.84 {X10_3/ul} (Normal) Range: 0.83-4.51 [...] 4.2-5.4 WBC 6.6 K/mm3 (Normal) Range: 4.4-11.0 7-Xvv-185045:10 Comprehensive Metabolic Profil Comments: CMP, CBCD, PT FOR DR BOOKER ARE FOR [facility] Sanchesluis [facility] [address] [place], [address] GAP 8 (Normal) Range: 5-15 CO2 25.0 [...] A.D.A. criteria.Please note revised GLUCOSE reference range thzflridp06/02/2018. 2-Jxn-089557:10 Ferritin Comments: CMP, CBCD, PT FOR DR BOOKER ARE FOR [facility]ITAL[facility]EL[facility]AB[facility] [address] [place], [address] FERRITIN 60 ng/mL (Normal) Range: 8-252 8-Ech-127397:10 Iron+Iron Binding Capacity Comments: CMP, CBCD, PT FOR DR BOOKER ARE FOR [facility]ALSILVIOMercy [facility] [address] [place], [address] IRON SATURATION 13.0 % (Abnormal) Range: 15.0-55.0 IRON 44 ug/dL (Abnormal) Range: 50-170 TIBC 339 ug/dL (Normal) Range: 250-450 6-Qoa-945305:10 Prothrombin Time w/INR Comments: CMP, CBCD, PT FOR DR BOOKER ARE FOR [facility]ALSILVIOMer[facility] [address] [place], [address] INR 1.2 (Normal) PROTIME 15.3 s (Abnormal) Range: 11.7-14.9 79-Dcs-492266:25 Basic Metabolic Profile (BMP) Comments: [facility] [address], [address] GAP 9 (Normal) Range: 5-15 [...] A.D.A. criteria.Please note revised GLUCOSE reference range hjgpfrzwo36/02/2018. 83-Yaz-228196:25 CBC W/Diff, Automated Comments: [facility] [address] [place], [address] PATH REV Reviewed (Normal) Comments: Severe Macrocytic [...] 4.2-5.4 WBC 7.5 K/mm3 (Normal) Range: 4.4-11.0 56-Fkl-606073:25 Prothrombin Time w/INR Comments: [facility] [address] [place], [place], [address] INR 3.7 (Abnormal) Comments: CRITICAL VALUE VERIFIED. CALLED TO LELE DILL02/04/18 1157 Billie Hays.RESULTS READ BACK BY SAME . PROTIME 37.0 s (Abnormal) Range: 11.7-14.9 32-Laf-969610:26 Basic Metabolic Profile (BMP) Comments: Send Results To: Gerry Swartz for Laboratory Test CKD, hypokalemiaWBlanchard Valley Health [facility] [address] [place], [place], [address] GAP 8 (Normal) Range: 5-15 CO2 28.0 [...] A.D.A. criteria.Please note revised GLUCOSE reference range lbzaaccqx63/02/2018. 36-Mus-016128:25 CBC W/Diff, Automated Comments: Reason for Laboratory Test .[facility] [address] [place], [place], [address] Absolute Lymph 1.02 {X10_3/ul} (Normal) Range: 0.83-4.51 [...] :25 Ferritin Comments: Reason for Laboratory Test .[facility] [address] [place], [place], [address] FERRITIN 109 ng/mL (Normal) Range: 8-252 98-Bar-605467:25 Iron+Iron Binding Capacity Comments: Reason for Laboratory Test .[facility] [address] [place], [address] IRON SATURATION 26.7 % (Normal) Range: 15.0-55.0 IRON 92 ug/dL (Normal) Range: 50-170 TIBC 345 ug/dL (Normal) Range: 250-450 0-Gek-097950:19 HgA1C , Office (61196) HgA1C , Office 5.1 % (Normal) Range: 4.6 - 7.1 1-Cwx-169205:18 Blood Glucose , Office (08839) Blood Glucose , Office 124 (Normal) 21-Jan-20180:00 Fluid/Washing See Note (Normal) Comments: [facility] [address] [place], [place], [address] Comments: Patient: GABBI ROLLE : 1945 (72/F) Acct Num: [id number] Phys: Leslie BALDWIN,Carlos Unit Num: [id number] Loc: US Specimen: [id number] Received: 01/24/18846 Spec Type: Flu id TISSUES TISSUES: THORACIC FLUID CYTOLOGY GROSS Received is 695 ml of laquita cloudy fluid labeled with the patient's name and DOBand designated per the requisition as t horacentesis. Submitted for cytology preparation including cell block. / 01/23/18 TC:5 CPT: 82559, 19109 CYTOLOGY STUDY Slides are reviewed. The specimen [...] Comments: RESULT(S) PREVIOUSLY REPORTED ON MANUAL REQUISITION DURINGDOWNTIME.[facility] [address] [place], [place], [address] PTT 42.2 s (Abnormal) Range: 24.1-36.2 20-Jan-20189:30 Prothrombin Time w/INR Comments: RESULT(S) PREVIOUSLY REPORTED ON MANUAL REQUISITION DURINGDOWNTIME.[facility] [address] [place], [place], [address] INR 1.3 (Normal) PROTIME 16.2 s (Abnormal) Range: 11.7-14.9 33-Arb-433161:55 Basic Metabolic Profile (BMP) Comments: [facility] [address] [place], [address] GAP 9 (Normal) Range: 5-15 [...] A.D.A. criteria.Please note revised GLUCOSE reference range kyjwbuayi56/02/2018. 10-Nxq-445227:55 BNP,B-Type NATRIURETIC PEPTIDE Comments: [facility] [address] [place], [place], [address] B-TYPE MARY JO PEP 208.1 pg/mL (Abnormal) Range: 0-100 77-Btm-702270:55 CBC W/Diff, Automated Comments: [facility] [address] [place], [address] Absolute Lymph 0.56 {X10_3/ul} (Abnormal) [...] Range: 4.4-11.0 :44 Protime w/INR Fingerstick Comments: [facility] LaboratoryPoint of [address] [place] [address] INR ISTAT 1.20 (Normal) Comments: Critical Value > 3.5 PROTIME ISTAT 13.7 {SEC} (Normal) Range: 11.9-14.4 Comments: Reference Range 11.9 - 14.4 :43 Bedside Glucose Comments: [facility] LaboratoryPoint of [address] [place] [address] BEDSIDE GLU 147 mg/dL (Abnormal) Range: 70-110 Comments: MANAGEMENT OF PATIENT CARE PER NURSING PROTOCOL 84-Pvd-252839:01 CBC W/Diff, Automated Comments: Reason for Laboratory Test .[facility] [address] [place], [address] Absolute Lymph 0.80 [...] 4.2-5.4 WBC 7.1 K/mm3 (Normal) Range: 4.4-11.0 48-Ogd-187649:01 Comprehensive Metabolic Profil Comments: Reason for Laboratory Test .[facility] [address] [place], [place], [address] GAP 6 (Normal) Range: 5-15 CO2 25.0 [...] A.D.A. criteria.Please note revised GLUCOSE reference range iuwuwmxtk09/02/2018. 99-Ytd-993653:01 Erythropoietin Comments: Reason for Laboratory Test .[facility] (refer to report for specific site)refer to report for address and phone number [facility] [phone] m[iU]/mL (Abnormal) Range: 2.6-18.5 Comments: Stuffleel DxI 800 Immunoassay SystemPerformed at: - Lab[address] [id number] Director: Heron Almonte PhD, Phone: [phone] 42-Cri-530267:01 Ferritin Comments: Reason for Laboratory Test .[facility] [address] [place], [place], [address] FERRITIN 69 ng/mL (Normal) Range: 8-252 06-Nhu-394514:01 Iron+Iron Binding Capacity Comments: Reason for Laboratory Test .[facility] [address] [place], [place], [address] IRON SATURATION 19.7 % (Normal) Range: 15.0-55.0 IRON 77 ug/dL (Normal) Range: 50-170 TIBC 391 ug/dL (Normal) Range: 250-450 55-Xbi-273363:06 Metabolic Panel, Comprehensive Comments: send to Dr. Mccurdy; PATIENT NOT FASTINGPERFORMED BY: [email or web address] Dkdrjv7328 [facility] [id number] ([address]) ALT (SGPT) 18 [iU]/L (Normal) Range: 0-32 [...] 8-27 Glucose 114 mg/dL (Abnormal) Range: 65-99 15-Wxg-548980:06 TSH (THYROID STIMULATING Comments: send results to Dr. Bowers; PATIENT NOT FASTINGPERFORMED BY: [facility] Vzulnf7650 [facility] [id number] HORMONE) (52492) TSH 3.420 {uIU/mL} (Normal) Range: 0.450-4.500 41-Vit-839619:09 CBC W/Diff, Automated Comments: Reason for Laboratory Test .[facility] [address] [place], [place], [address] SMEAR COMMENT (Normal) Comments: SLIDE SCANNED - [...] 4.2-5.4 WBC 6.9 K/mm3 (Normal) Range: 4.4-11.0 08-Yzi-115963:09 Erythropoietin Comments: Reason for Laboratory Test .[facility] (refer to report for specific site)refer to report for address and phone number [facility] [phone] 51.6 m[iU]/mL (Abnormal) Range: 2.6-18.5 Comments: VOSS DxI 800 Immunoassay SystemPerformed at: [facility] YESTODATE.COMCo[address] [id number] Director: Heron Almonte PhD, Phone: [phone] 63-Rge-067023:09 Ferritin Comments: Reason for Laboratory Test .[facility] [address] [place], [place], [address] FERRITIN 43 ng/mL (Normal) Range: 8-252 57-Xjq-074958:09 Iron+Iron Binding Capacity Comments: Reason for Laboratory Test .[facility] [address] [place], [place], [address] IRON SATURATION 10.4 % (Abnormal) Range: 15.0-55.0 IRON 56 ug/dL (Normal) Range: 50-170 Comments: Slight Hemolysis, Result may be falsely increased. TIBC 536 ug/dL (Abnormal) Range: 250-450 79-Mra-495348:09 Retic Panel Comments: Reason for Laboratory Test .[facility] [address] [place], [place], [address] IPF 3.8 % (Normal) Range: 1.0-7.9 Comments: [...] 3.00-15.90 RETIC 5.76 % (Abnormal) Range: 0.5-1.5 50-Job-087610:55 Basic Metabolic Profile (BMP) Comments: 'TROP' Serial specimen #1, #2, #3, or #4: 1WBl[facility] [address] [place], [place], [address] GAP 9 (Normal) Range: 5-15 CO2 23.0 [...] A.D.A. criteria.Please note revised GLUCOSE reference range nietavtlz16/02/2018. 19-Ilu-544811:55 BNP,B-Type NATRIURETIC PEPTIDE Comments: [facility] [address] [place], [address] B-TYPE MARY JO PEP 217.5 pg/mL (Abnormal) Range: 0-100 37-Ami-604367:55 CBC W/Diff, Automated Comments: [facility] [address] [place], [address] MACROCYTE 1+ (Normal) POLYCHROMASIA 1+ [...] Range: 4.4-11.0 :55 Prothrombin Time w/INR Comments: [facility] [address] [place], [place], [address] INR 2.4 (Normal) PROTIME 26.4 s (Abnormal) Range: 11.7-14.9 10-Ssb-544703:55 Troponin-I Comments: 'TROP' Serial specimen #1, #2, #3, or #4: [address] [place] [address] [address] [place], [place], [address] TROPONIN-I < 0.02 ng/mL (Normal) Comments: TROPONIN-I EXPECTED VALUES <0.05 NEGATIVE 0.06 - 0.59 AT RISK OF KS > OR = 0.60 SUGGEST KS 8-Xgv-623819:40 Basic Metabolic Profile (BMP) Comments: 'TROP' Serial specimen #1, #2, #3, or #4: [address] [place] [address] [place], [place], [address] GAP 7 (Normal) Range: 5-15 CO2 24.0 [...] A.D.A. criteria.Please note revised GLUCOSE reference range wusmiygvb17/02/2018. 5-Dvo-791992:40 BNP,B-Type NATRIURETIC PEPTIDE Comments: [facility] [address] [place], [place], [address] B-TYPE MARY JO PEP 226.6 pg/mL (Abnormal) Range: 0-100 3-Ikb-494307:40 CBC W/Diff, Automated Comments: [facility] [address] [place], [place], [address] SMEAR COMMENT SCANNED (Normal) Comments: 1+ ANISOCYTOSIS [...] Range: 4.4-11.0 :40 Prothrombin Time w/INR Comments: [address] [place], [address] INR 2.8 (Normal) PROTIME 29.7 s (Abnormal) Range: 11.7-14.9 8-Xjs-103809:40 Troponin-I Comments: 'TROP' Serial specimen #1, #2, #3, or #4: [address] [place], [address] TROPONIN-I < 0.02 ng/mL (Normal) Comments: TROPONIN-I EXPECTED VALUES <0.05 NEGATIVE 0.06 - 0.59 AT RISK OF KS > OR = 0.60 SUGGEST KS 61-Cmz-73561:53 CBC W/Diff, Automated Comments: CMP,LIPID,FERRITIN,IRON,TIBC FOR CIESAReason for Laboratory Test ANEMIAMercy [facility] [address]xo[address] [place], [place], [address] HYPOCHROMASIA 2+ (Normal) POLYCHROMASIA RARE (Normal) ANISO [...] Comments: CMP,LIPID,FERRITIN,IRON,TIBC FOR Christianoason for Laboratory Test ANEMIAWBlanchard Valley [facility] [address] [place], [address] Profil GAP 8 (Normal) Range: 5-15 CO2 24.0 mmol/L (Normal) Range: 21.0-32.0 CL 107 mmol/L (Normal) Range: 98-107 K 4.3 mmol/L (Normal) Range: 3.5-5.1 NA 139 mmol/L (Normal) Range: 136-145 T BILI 0.50 mg/dL (Normal) Range: 0.20-1.00 ALT 17 U/L (Normal) Range: 13-56 Comments: Please note revised ALT reference range nsgblewea86/28/2018. ALK P 76 U/L (Normal) Range: 45-117 [...] A.D.A. criteria.Please note revised GLUCOSE reference range mytjuqcrk95/02/2018. 98-Qbp-10192:53 Ferritin Comments: CMP,LIPID,FERRITIN,IRON,TIBC FOR CIESAReason for Laboratory Test [facility] [address] [place], [address] FERRITIN 32 ng/mL (Normal) Range: 8-252 :53 Iron+Iron Binding Comments: CMP,LIPID,FERRITIN,IRON,TIBC FOR CIESAReason for Laboratory Test [facility] [address] [place], [address] Capacity IRON SATURATION 21.2 % (Normal) Range: 15.0-55.0 IRON 95 ug/dL (Normal) Range: 50-170 TIBC 449 ug/dL (Normal) Range: 250-450 :53 Lipid Profile Comments: CMP,LIPID,FERRITIN,IRON,TIBC FOR [facility]AReason for Laboratory Test [facility] [address] [place], [address] VLDL 24 mg/dL [...] mg/dL High Risk :54 Culture, Urine Comments: [facility] [address] [place], [address] CUUR See Note (Normal) Comments: Urine CultureBelow infection level. ORGANISM 1: Mixed Gram Positive OrganismsColony Count 1000-10,000 6-Fuw-168775:54 Urinalysis, Complete Comments: How was Urine Obtained? CLEAN [facility] [address] [place], [address] MUCUS, URINE 0 SEEN {/hpf} [...] COLOR Yellow (Normal) :37 HgA1C , Office (37089) HgA1C , Office 5.5 % (Normal) Range: 4.6 - 7.1 :35 Blood Glucose , Office (03059) Blood Glucose , Office 170 (Normal) 27-Cog-00724:12 Influenza A&B Viral Comments: PATIENT NOT FASTINGPERFORMED BY: [facility] [id number] [id number] [id number] Information: SRC:NL Culture (32812) Viral Culture,Rapid,Influenza FLUABN (Normal) Comments: Negative:No Influenza A or B detected. 72-Ynk-460536:40 Rapid Flu (42997 x 2) Influenza A Ag neg (Normal) 66-Vik-591584:16 CBC W/Diff, Automated Comments: Reason for Laboratory Test [facility] [id number] [place], [address] ; Dr Khan Absolute Lymph [...] 4.2-5.4 WBC 9.6 K/mm3 (Normal) Range: 4.4-11.0 56-Rys-794404:16 Ferritin Comments: Reason for Laboratory Test [facility] [id number] [place], [address] FERRITIN 33 ng/mL (Normal) Range: 8-252 89-Sre-368921:16 Iron+Iron Binding Capacity Comments: Reason for Laboratory Test [facility] [id number] [place], [address] IRON SATURATION 12.8 % (Abnormal) Range: 15.0-55.0 IRON 56 ug/dL (Normal) Range: 50-170 TIBC 436 ug/dL (Normal) Range: 250-450 23-Vsu-639175:16 Retic Panel Comments: Reason for Laboratory Test [facility] [id number] [place], [address] IPF 3.1 % (Normal) Range: [...] (Abnormal) Range: 0.5-1.5 :16 HgA1C , Office (04272) Comments: 5.6 HgA1C , Office 5.6 % (Normal) Range: 4.6 - 7.1 :16 Blood Glucose , Office (96908) Blood Glucose , Office 145 (Normal) :22 PT (PROTHROMBIN TIME) (82763) Comments: Standing order; PATIENT NOT FASTINGPERFORMED BY: [facility]6370 [facility] [id number] Prothrombin Time 11.5 {sec} (Normal) Range: 9.1-12.0 INR 1.1 (Normal) Range: 0.8-1.2 Comments: Reference interval is for non-anticoagulated patients. . Suggested INR therapeutic range for Vitamin K anta gonist therapy: Standard Dose (moderate intensity therapeutic range): 2.0 - 3.0 Higher intensity therapeutic range 2.5 - 3.5 :25 PT (PROTHROMBIN TIME) (05070) Comments: Standing order; PATIENT NOT FASTINGPERFORMED BY: [employer] Qdahrt2606 [facility] [id number] Prothrombin Time 17.1 {sec} (Abnormal) Range: 9.1-12.0 INR 1.7 (Abnormal) Range: 0.8-1.2 Comments: Reference interval is for non-anticoagulated patients. . Suggested INR therapeutic range for Vitamin K anta gonist therapy: Standard Dose (moderate intensity therapeutic range): 2.0 - 3.0 Higher intensity therapeutic range 2.5 - 3.5 :55 Blood Gases by [facility] Comments: [place] [address] [place] [address] SO2 ISTAT 95 % (Normal) Range: 95-99 TOTAL CO2 ISTAT 24 mmol/L (Normal) BE ISTAT -2 mmol/L (Normal) HCO3 ISTAT 23.1 mmol/L (Normal) Range: 22-26 PO2 I-STAT 77 {mmHG} (Normal) Range: 75-100 pCO2 - ISTAT 37.5 {mmHg} (Normal) Range: 35-45 pH - I-STAT 7.40 (Normal) Range: 7.35-7.45 BLD GAS TYPE ART (Normal) :35 Venous Blood Gas Comments: [place] [address] [place] [address] ISTAT 25 [...] ANTONIO (Normal) :32 Venous Blood Gas Comments: [place] [address] [place] [address] ISTAT 25 [...] 7.32-7.42 BLD GAS TYPE JUAN ANTONIO (Normal) 4-Hcz-397458:01 Basic Metabolic Profile (BMP) Comments: Order Date: 03/26/17Order Info: [id number] - *BMPComments: Reason:[facility] [address] [place], [place], [phone] GAP 6 (Normal) Range: 5-15 CO2 27.0 [...] HOMEOSTASIS per A.D.A. criteria.; ADDENDA: another doc 5-Hoa-513299:01 CBC-Complete Blood Cnt No Diff Comments: Order Date: 03/26/17Order Info: [id number] - *CBC without DiffComments: Reason:[facility] [address] [place], [place], [id number] ; another doc MPV 12.4 fL (Abnormal) [...] 7.6 K/mm3 (Normal) Range: 4.4-11.0 :31 Iron (87417) Comments: PATIENT NOT FASTINGPERFORMED BY: Hach[facility] Kappuj2428 [facility] [id number] Iron, Serum 70 ug/dL (Normal) Range: 27-139 :31 Ferritin (58090) Comments: PATIENT NOT FASTINGPERFORMED BY: [facility] Jyydfe4055 [facility] [id number] Ferritin, Serum 90 ng/mL (Normal) Range: 15-150 :31 Metabolic Panel, Comprehensive Comments: PATIENT NOT FASTINGPERFORMED BY: [facility] Pogtrc9979 [facility] [id number] (03866) ALT (SGPT) 16 [iU]/L (Normal) Range: 0-32 [...] Glucose, Serum 109 mg/dL (Abnormal) Range: 65-99 00-Xtj-87108:31 CBC WITH MANUAL DIFF (62127) Comments: PATIENT NOT FASTINGPERFORMED BY: [facility] Eqokau0224 [facility] [id number] Immature Grans (Abs) 0.0 {x10E3/uL} Range: 0.0-0.1 [...] sent toHeron Hobbs M.D..PATIENT NOT FASTINGPERFORMED BY: [facility]6370 [facility] [id number] 12:16 Range: 15-150 34-Gjn-904664:16 CBC, PLATELETS & AUT DIFF Comments: A courtesy copy of this report has been sent toHeron Hobbs M.D..PATIENT NOT FASTINGPERFORMED BY: YESTODATE.COME[facility] Muksfs1651 [facility] [id number] (78878) Immature Grans (Abs) 0.0 {x10E3/uL} (Normal) Range: [...] 3.77-5.28 WBC 9.1 {x10E3/uL} (Normal) Range: 3.4-10.8 95-Bqh-154014:16 IRON & TOTAL IRON BINDING Comments: A courtesy copy of this report has been sent toHeron Hobbs M.D..PATIENT NOT FASTINGPERFORMED BY: [facility] Ztyvtj3401 [facility] [id number] CAPACITY (29426) Iron Saturation 10 % (Abnormal) Range: 15-55 Iron, Serum 40 ug/dL (Normal) Range: 27-139 UIBC 358 ug/dL (Normal) Range: 118-369 Iron Bind.Cap.(TIBC) 398 ug/dL (Normal) Range: 250-450 06-Auk-160671:43 Culture, Urine Comments: [facility] [address] [place], [address] CUUR See Note (Normal) Comments: [...] $ <=20 S(NF) indicates non-formulary drug at [facility]. Approval by Infectious Disease Specialist required before non- formulary drugs may be ordered and/or dispensed. 2-Guy-504457:00 Basic Metabolic Profile (BMP) Comments: [facility] [address] [place], [place], [address] GAP 10 (Normal) Range: 5-15 CO2 23.0 [...] <126 mg/dLsuggests IMPAIRED HOMEOSTASIS per A.D.A. criteria. 0-Jdv-974492:00 CBC W/Diff, Automated Comments: [facility] [address] [place], [address] ; ER Absolute Lymph 1.09 {X10_3/ul} (Normal) [...] 4.2-5.4 WBC 6.5 K/mm3 (Normal) Range: 4.4-11.0 9-Rcc-374275:00 Prothrombin Time w/INR Comments: [facility] [address] [place], [place], [address] INR 1.2 (Normal) PROTIME 14.6 s (Normal) Range: 11.7-14.9 5-Xsi-575988:00 Microscopic Examination Comments: PATIENT WAS FASTINGPERFORMED BY: LabCoHackettstown Medical CenterRyfoea2951 [facility] [id number] Bacteria Few (Normal) Mucus Threads Present (Normal) Epithelial Cells (non renal) 0-10 {/hpf} (Normal) Range: 0 - 10 RBC 0-2 {/hpf} (Normal) Range: 0 - 2 WBC 0-5 {/hpf} (Normal) Range: 0 - 5 35-Hfn-36147:40 Urinalysis, Complete Comments: Order Date: 12/09/16Order Date: 12/09/16How was Urine Obtained? [facility] [address] [place], [place], [address] MUCUS, URINE 0 SEEN {/hpf} (Normal) BACTERIA [...] (Normal) CLARITY Cloudy (Normal) COLOR Yellow (Normal) 94-Vqp-75991:00 Prothrombin Time w/INR Comments: REDRAW. PREVIOUS SPECIMEN REJECTED DUE TOQNS. 12/09/1647 Jessica Allen.REDRAW. PREVIOUS SPECIMEN REJECTED DUE TOQNS. 12/09/1647 Jessica Allen.[facility] Labor [address] [place], [address](329) INR 1.6 (Normal) PROTIME 18.1 s (Abnormal) Range: 11.7-14.9 37-Wav-54667:10 Basic Metabolic Profile (BMP) Comments: 'TROP' Serial specimen #1, #2, #3, or #4: [address] [place] [address] [place], [place], [address] GAP 11 (Normal) Range: 5-15 CO2 23.0 [...] A.D.A. criteria. :10 BNP,B-Type NATRIURETIC PEPTIDE Comments: [facility] [address] [place], [place], [address] B-TYPE MARY JO PEP 243.7 pg/mL (Abnormal) Range: 0-100 :10 CBC W/Diff, Automated Comments: [facility] [address] [place], [place], [address] SMEAR COMMENT SCANNED (Normal) Comments: LYMPHOPENIA NOTED [...] Serial specimen #1, #2, #3, or #4: [facility] [address]dyn[address] [place], [place], [address] TROPONIN-I 0.43 ng/mL (Abnormal) Comments: TROPONIN-I EXPECTED VALUES <0.05 NEGATIVE 0.06 - 0.59 AT RISK OF [place] > OR = 0.60 SUGGEST [place] :02 Lactic Acid Comments: [facility] [address] [place], [place], [address] LACTIC ACID 2.2 mmol/L (Abnormal) Range: 0.4-2.0 43-Mai-179042:45 Rapid Flu (56902 x 2) Comments: Negative Influenza A Ag neg a/b (Normal) 1-Yho-851101:00 MICROALBUMIN: CREATININE RATIO Comments: PATIENT WAS FASTINGPERFORMED BY: [facility]70 [facility] [id number] (44146) AND (05379) Microalb/Creat Ratio 29.7 {mg/g_creat} (Normal) Range: 0.0-30.0 Microalbumin, Urine 15.2 ug/mL (Normal) Creatinine, Urine 51.2 mg/dL (Normal) :00 URINALYSIS (47886) Comments: PATIENT WAS FASTINGPERFORMED BY: [facility]6370 [facility] [id number] Microscopic Examination See below: (Normal) Comments: Microscopic was indicated and was performed. Nitrite, Urine Negative (Normal) Urobilinogen,Semi-Qn 0.2 mg/dL (Normal) Range: 0.2-1.0 Bilirubin Negative (Normal) Occult Blood Trace (Abnormal) Ketones Negative (Normal) Glucose Negative (Normal) Protein Negative (Normal) WBC Esterase 2+ (Abnormal) Appearance Clear (Normal) Urine-Color Yellow (Normal) pH 6.0 (Normal) Range: 5.0-7.5 Specific Kingfisher 1.010 (Normal) Range: 1.005-1.030 :00 TSH (36954) Comments: PATIENT WAS FASTINGPERFORMED BY: [facility]6370 [facility] [id number] TSH 3.850 {uIU/mL} (Normal) Range: 0.450-4.500 6-Hnj-611147:00 CBC, Platelets & Auto Diff Comments: PATIENT WAS FASTINGPERFORMED BY: [facility]6370 [facility] [id number] (86678) Immature Grans (Abs) 0.0 {x10E3/uL} (Normal) Range: [...] 3.77-5.28 WBC 8.8 {x10E3/uL} (Normal) Range: 3.4-10.8 8-Cnq-433344:00 Metabolic Panel, Comprehensive Comments: PATIENT WAS FASTINGPERFORMED BY: [facility]6370 [facility] [id number] (98570) ALT (SGPT) 24 [iU]/L (Normal) Range: 0-32 [...] Glucose, Serum 106 mg/dL (Abnormal) Range: 65-99 74-Uhi-38071:10 CBC W/Diff, Automated Comments: [facility] [address] [place], [place], [address] Absolute Lymph 1.29 {X10_3/ul} (Normal) Range: 0.83-4.51 [...] (Normal) Range: 4.4-11.0 :08 HgA1C , Office (14894) HgA1C , Office 5.5 % (Normal) Range: 4.6 - 7.1 :08 Blood Glucose , Office (89737) Blood Glucose , Office 155 (Normal) 2-Zks-105592:25 BNP,B-Type NATRIURETIC PEPTIDE Comments: [facility] [address] [place], [place], [address] ; another doc B-TYPE MARY JO PEP 147.4 pg/mL (Abnormal) Range: 0-100 :18 HgA1C , Office (57837) HgA1C , Office 6.0 % (Normal) Range: 4.6 - 7.1 :18 Blood Glucose , Office (14043) Blood Glucose , Office 109 (Normal) :21 HgA1C , Office (02435) HgA1C , Office 6.1 % (Normal) Range: 4.6 - 7.1 9-Aug-10618:21 Blood Glucose , Office (65636) Blood Glucose , Office 117 (Normal) 7-Abi-918508:21 METABOLIC PANEL, Comments: PATIENT NOT FASTINGPERFORMED BY: [employer] [facility] [id number] Information: [id number] COMPREHENSIVE (61966) ALT (SGPT) 15 [iU]/L (Normal) Range: 0-32 [...] Glucose, Serum 92 mg/dL (Normal) Range: 65-99 6-Afi-375017:21 Vitamin D Hydroxy (10491) Comments: PATIENT NOT FASTINGPERFORMED BY: [employer] Reporting TechnologiesHackettstown Medical CenterXuptys6223 [facility] [id number] Vitamin D, 25-Hydroxy 59.7 ng/mL (Normal) Range: 30.0-100.0 Comments: Vitamin D deficiency has been defined by the [place] of[place]icine and an Endocrine Society practice guideline as alevel of serum 25-OH vitamin D less than 20 ng/mL (1,2).The Endocrine Society went on to further define vitamin Dinsufficiency as a level between 21 and 29 ng/mL (2).1. IOM ([place] of Medicine). 2010. Dietary reference intakes for calcium and D. [place]: The National Academies Press.2. [place] MF, James MCGOWAN, Dolores MARTINEZ, et al. Evaluation, treatment, and prevention of vitamin D deficiency: an Endocrine Society clinical practice guideline. JCEM. 2010; 96(7):1911-30. -:06 HgA1C , Office (76837) HgA1C , Office 6.0 % (Normal) Range: 4.6 - 7.1 :15 HgA1C , Office (71143) HgA1C , Office 6.4 % (Normal) Range: 4.6 - 7.1 :31 HgA1C , Office (09890) HgA1C , Office 6.0 % (Normal) Range: 4.6 - 7.1 :04 HgA1C , Office (23033) HgA1C , Office 6.0 % (Normal) Range: 4.6 - 7.1 :09 HgA1C , Office (85594) HgA1C , Office 6.0 % (Normal) Range: 4.6 - 7.1 :32 HgA1C , Office (56877) HgA1C , Office 6.2 % (Normal) Range: 4.6 - 7.1 :24 HgA1C , Office (61927) HgA1C , Office 6.2 % (Normal) Range: 4.6 - 7.1 :59 PT (Prothrobim Time) Comments: PATIENT NOT FASTINGPERFORMED BY: [facility] Eutnro1056 [facility] [id number] Information: [id number] (94893) Prothrombin Time 25.2 {sec} (Abnormal) Range: 9.1-12.0 INR 2.4 (Abnormal) Range: 0.8-1.2 Comments: Reference interval is for non-anticoagulated patients. . Suggested INR therapeutic range for Vitamin K anta gonist therapy: Standard Dose (moderate intensity therapeutic range): 2.0 - 3.0 Higher intensity therapeutic range 2.5 - 3.5 :22 PT (Prothrobim Time) Comments: PATIENT NOT FASTINGPERFORMED BY: [place] [id number] [facility] [id number] Information: [id number] (47527) Prothrombin Time 22.4 {sec} (Abnormal) Range: 9.1-12.0 INR 2.2 (Abnormal) Range: 0.8-1.2 Comments: Reference interval is for non-anticoagulated patients. . Suggested INR therapeutic range for Vitamin K anta gonist therapy: Standard Dose (moderate intensity therapeutic range): 2.0 - 3.0 Higher intensity therapeutic range 2.5 - 3.5 56-Glw-645162:39 HgA1C , Office (57564) HgA1C , Office 6.5 % (Normal) Range: 4.6 - 7.1 30-Mfn-610646:37 PT (Prothrobim Time) Comments: PATIENT NOT FASTINGPERFORMED BY: [place] [id number] [facility] [id number] Information: [id number] (38098) Prothrombin Time 20.7 {sec} (Abnormal) Range: 9.1-12.0 INR 1.9 (Abnormal) Range: 0.8-1.2 Comments: Reference interval is for non-anticoagulated patients. . Suggested INR therapeutic range for Vitamin K anta gonist therapy: Standard Dose (moderate intensity therapeutic range): 2.0 - 3.0 Higher intensity therapeutic range 2.5 - 3.5 39-Ttv-711107:34 BNTP (94479) Comments: PATIENT NOT FASTINGPERFORMED BY: [place] [id number] [facility] [id number] B-Type Natriuretic Peptide 156.2 pg/mL (Abnormal) Range: 0.0-100.0 89-Igl-275846:34 PT (Prothrobim Time) (40489) Comments: PATIENT NOT FASTINGPERFORMED BY: [facility]6370 [facility] [id number] Prothrombin Time 13.1 {sec} (Abnormal) Range: 9.1-12.0 INR 1.3 (Abnormal) Range: 0.8-1.2 Comments: Reference interval is for non-anticoagulated patients. . Suggested INR therapeutic range for Vitamin K anta gonist therapy: Standard Dose (moderate intensity therapeutic range): 2.0 - 3.0 Higher intensity therapeutic range 2.5 - 3.5 86-Hti-357871:34 CULTURE, SPUTUM (63989) Comments: PATIENT NOT FASTINGPERFORMED BY: [facility]6370 [facility] [id number] Lower Respiratory Culture Final report (Normal) Result 1 RRF (Normal) Comments: Routine respiratory anisa 59-Oev-833421:20 PT (Prothrobim Time) Comments: PATIENT NOT FASTINGPERFORMED BY: [facility]6370 [facility] [id number] Information: [id number] (34761) Prothrombin Time 21.0 {sec} (Abnormal) Range: 9.1-12.0 INR 2.0 (Abnormal) Range: 0.8-1.2 Comments: Reference interval is for non-anticoagulated patients. . Suggested INR therapeutic range for Vitamin K anta gonist therapy: Standard Dose (moderate intensity therapeutic range): 2.0 - 3.0 Higher intensity therapeutic range 2.5 - 3.5 13-Qmt-642161:11 PT (Prothrobim Time) Comments: PATIENT NOT FASTINGPERFORMED BY: [facility]6370 [facility] [id number] Information: [id number] (49814) Prothrombin Time 15.3 {sec} (Abnormal) Range: 9.1-12.0 INR 1.5 (Abnormal) Range: 0.8-1.2 Comments: Reference interval is for non-anticoagulated patients. . Suggested INR therapeutic range for Vitamin K anta gonist therapy: Standard Dose (moderate intensity therapeutic range): 2.0 - 3.0 Higher intensity therapeutic range 2.5 - 3.5 :45 HgA1C , Office (92040) HgA1C , Office 6.5 % (Normal) Range: 4.6 - 7.1 :18 PT (Prothrobim Time) Comments: PATIENT NOT FASTINGPERFORMED BY: [facility]6370 [facility] [id number] Information: [id number] (31993) Prothrombin Time 20.0 {sec} (Abnormal) Range: 9.1-12.0 INR 1.9 (Abnormal) Range: 0.8-1.2 Comments: Reference interval is for non-anticoagulated patients. . Suggested INR therapeutic range for Vitamin K anta gonist therapy: Standard Dose (moderate intensity therapeutic range): 2.0 - 3.0 Higher intensity therapeutic range 2.5 - 3.5 :24 HgA1C , Office (93718) HgA1C , Office 6.1 % (Normal) Range: 4.6 - 7.1 :53 HgA1C , Office (53212) HgA1C , Office 6.2 % (Normal) Range: 4.6 - 7.1 :05 CBC WITH MANUAL DIFF Comments: today; PATIENT NOT FASTINGPERFORMED BY: [place] [id number] [facility] [id number] Information: [id number] (71376) Hematology Comments: Note: (Normal) Comments: Verified by [...] 3.77-5.28 WBC 9.2 {x10E3/uL} (Normal) Range: 4.0-10.5 11-Xxa-874937:30 HgA1C , Office (06949) HgA1C , Office 6.1 % (Normal) Range: 4.6 - 7.1 66-Xgr-020205:33 PT (Prothrobim Time) Comments: PATIENT NOT FASTINGPERFORMED BY: [place] [id number] [facility] [id number] Information: [id number] (28799) Prothrombin Time 17.9 {sec} (Abnormal) Range: 9.1-12.0 INR 1.7 (Abnormal) Range: 0.8-1.2 Comments: Reference interval is for non-anticoagulated patients. . Suggested INR therapeutic range for Vitamin K anta gonist therapy: Standard Dose (moderate intensity therapeutic range): 2.0 - 3.0 Higher intensity therapeutic range 2.5 - 3.5 38-Szf-608113:27 PT (Prothrobim Time) Comments: PATIENT NOT FASTINGPERFORMED BY: [facility]6370 [facility] [id number] Information: [id number] (68233) Prothrombin Time 26.3 {sec} (Abnormal) Range: 9.1-12.0 INR 2.6 (Abnormal) Range: 0.8-1.2 Comments: Reference interval is for non-anticoagulated patients. . Suggested INR therapeutic range for Vitamin K anta gonist therapy: Standard Dose (moderate intensity therapeutic range): 2.0 - 3.0 Higher intensity therapeutic range 2.5 - 3.5 5-Wlp-985818:01 BILAT SCRN DIGITAL & CAD Radiology Report [...] Cho M.D.July 25, 2012 at 11:23:11 AM [id number] Signed GP/GP If you are the referring physician and would like to consult with theradiologist who provided this interpretation, please contact Clinton Ignacio at [phone]. If this radiologist is unavailable, youwill be directed to another radiologist to assist. If you are a patient with a question regarding this report, pleasecontactyour referring physician directly. Professional Interpretation Provided By: Ink[employer], Phone , These documents contain leg ally [...] 07/25/12 1128 Sign by: Irvin Cho MD 51-Nuq-683254:44 HgA1C , Office (53726) HgA1C , Office 6.6 % (Normal) Range: 4.6 - 7.1 :44 Blood Glucose , Office (50788) Blood Glucose , Office 101 (Normal) :02 PT (Prothrobim Time) Comments: standing order; PATIENT NOT FASTINGPERFORMED BY: YESTODATE.COMPromedica Charles [facility]6370 [facility] [id number] Information: [id number] (39477) Prothrombin Time 20.6 {sec} (Abnormal) Range: 9.1-12.0 INR 2.0 (Abnormal) Range: 0.8-1.2 Comments: Reference interval is for non-anticoagulated patients. . Suggested INR therapeutic range for Vitamin K anta gonist therapy: Standard Dose (moderate intensity therapeutic range): 2.0 - 3.0 Higher intensity therapeutic range 2.5 - 3.5 54-Uuq-525296:09 HgA1C , Office (27566) HgA1C , Office 6.1 % (Normal) Range: 4.6 - 7.1 68-Evb-16182:00 Prothrombin Time (PT) Comments: PATIENT NOT FASTINGPERFORMED BY: [facility]6370 [facility] [id number] Prothrombin Time 21.7 {sec} (Abnormal) Range: 9.1-12.0 INR 2.1 (Abnormal) Range: 0.8-1.2 Comments: Reference interval is for non-anticoagulated patients. . Suggested INR therapeutic range for Vitamin K anta gonist therapy: Standard Dose (moderate intensity therapeutic range): 2.0 - 3.0 Higher intensity therapeutic range 2.5 - 3.5 :42 PT (PROTHROMBIN TIME) Comments: PATIENT NOT FASTINGPERFORMED BY: [facility]6370 [facility] [id number] Information: [id number] (64261) Prothrombin Time 18.7 {sec} (Abnormal) Range: 9.1-12.0 INR 1.8 (Abnormal) Range: 0.8-1.2 Comments: Reference interval is for non-anticoagulated patients. . Suggested INR therapeutic range for Vitamin K anta gonist therapy: Standard Dose (moderate intensity therapeutic range): 2.0 - 3.0 Higher intensity therapeutic range 2.5 - 3.5 77-Lcz-60019:06 PT (PROTHROMBIN TIME) Comments: PATIENT NOT FASTINGPERFORMED BY: [place] [id number] [facility] [id number] Information: [id number] (46269) Prothrombin Time 21.7 {sec} (Abnormal) Range: 9.1-12.0 INR 2.0 (Abnormal) Range: 0.8-1.2 Comments: Reference interval is for non-anticoagulated patients. . Suggested INR therapeutic range for Vitamin K anta gonist therapy: Standard Dose (moderate intensity therapeutic range): 2.0 - 3.0 Higher intensity therapeutic range 2.5 - 3.5 12-Gbk-367273:01 ERYTHROPOIETIN (98642) Comments: PATIENT NOT FASTINGPERFORMED BY: [facility]6370 [facility] [id number] Erythropoietin 38.7 m[iU]/mL (Abnormal) Range: 4.2-27.8 31-Hep-127878:01 Vitamin D Hydroxy (79460) Comments: PATIENT NOT FASTINGPERFORMED BY: [place] [id number] [facility] [id number] Vitamin D, 25-Hydroxy 52.5 ng/mL (Normal) Range: 30.0-100.0 Comments: Vitamin D deficiency has been defined by the [place] of[place]icine and an Endocrine Society practice guideline as alevel of serum 25-OH vitamin D less than 20 ng/mL (1,2).The Endocrine Society went on to further define vitamin Dinsufficiency as a level between 21 and 29 ng/mL (2).1. IOM ([place] of Medicine). 2010. Dietary reference intakes for calcium and D. [place]: The National Academies Press.2. [place] MF, James MCGOWAN, Dolores MARTINEZ, et al. Evaluation, treatment, and prevention of vitamin D deficiency: an Endocrine Society clinical practice guideline. JCEM. 2010; 96(7):1911-30. 46-Uvu-786025:01 VITAMIN B-12 (CYANOCOBALAMIN) Comments: PATIENT NOT FASTINGPERFORMED BY: [facility] [id number] (00140) Vitamin B12 779 pg/mL (Normal) Range: 211-946 75-Coa-492657:01 RETICULOCYTE COUNT MANUL Comments: PATIENT NOT FASTINGPERFORMED BY: CB [employer] Reporting Technologiesrp Khtdqg8582 [facility] [id number] (68995) Reticulocyte Count 1.9 % (Normal) Range: 0.5-3.0 55-Svp-759777:01 LDH (LD) (LACTATE DEHYDROGENASE) Comments: PATIENT NOT FASTINGPERFORMED BY: [employer] Nlrkcn3651 [facility] [id number] (34641) LDH 174 [iU]/L (Normal) Range: 0-214 44-Fvl-928866:01 IRON BINDING CAPACITY Comments: PATIENT NOT FASTINGPERFORMED BY: [employer] Mtklcu5106 [facility] [id number] Information: [id number] (TIBC) (21287) Iron Saturation 9 % (Abnormal) Range: 15-55 Iron, Serum 35 ug/dL (Normal) Range: 35-155 UIBC 355 ug/dL (Normal) Range: 150-375 Iron Bind.Cap.(TIBC) 390 ug/dL (Normal) Range: 250-450 80-Zgy-414315:01 FERRITIN (26131) Comments: PATIENT NOT FASTINGPERFORMED BY: [facility]6370 [facility] [id number] Ferritin, Serum 59 ng/mL (Normal) Range: 13-150 :47 HgA1C , Office (03396) HgA1C , Office 6.2 % (Normal) Range: 4.6 - 7.1 :48 Prothrombin Time (PT) Comments: PERFORMED BY: [place] [id number] [facility] [id number] Prothrombin Time 20.1 {sec} (Abnormal) Range: 9.1-12.0 Comments: Please note reference interval change INR 1.9 (Abnormal) Range: 0.8-1.2 Comments: Reference interval is for non-anticoagulated patients. . Suggested INR therapeutic range for Vitamin K anta gonist therapy: Standard Dose (moderate intensity therapeutic range): 2.0 - 3.0 Higher intensity therapeutic range 2.5 - 3.5 :56 HgA1C , Office (57406) HgA1C , Office 6.4 % (Normal) Range: 4.6 - 7.1 :56 Blood Glucose , Office (10150) Blood Glucose , Office 111 (Normal) :48 PT (PROTHROMBIN TIME) Comments: PATIENT NOT FASTINGPERFORMED BY: [facility]6370 [facility] [id number] Information: [id number] (71794) Prothrombin Time 28.0 {sec} (Abnormal) Range: 9.1-12.0 Comments: Please note reference interval change INR 2.6 (Abnormal) Range: 0.8-1.2 Comments: Reference interval is for non-anticoagulated patients. . Suggested INR therapeutic range for Vitamin K anta gonist therapy: Standard Dose (moderate intensity therapeutic range): 2.0 - 3.0 Higher intensity therapeutic range 2.5 - 3.5 6-Kkx-430797:42 BILAT SCRN DIGITAL & CAD Radiology Report [...] 07/20/11 1305 Sign by: Irvin Cho MD 8-Rlt-513425:14 PT (PROTHROMBIN TIME) Comments: PATIENT NOT FASTINGPERFORMED BY: [employer]6370 BlackberryNovant Health Medical [facility] Hospital [id number] Information: [id number] (54561) Prothrombin Time 37.0 {sec} (Abnormal) Range: 9.1-12.0 Comments: Please note reference interval change INR 3.5 (Abnormal) Range: 0.8-1.2 Comments: Reference interval is for non-anticoagulated patients. . Suggested INR therapeutic range for Vitamin K anta gonist therapy: Standard Dose (moderate intensity therapeutic range): 2.0 - 3.0 Higher intensity therapeutic range 2.5 - 3.5 7-Sqx-079269:15 URIC ACID BLOOD (68996) Comments: PATIENT NOT FASTINGPERFORMED BY: Spotfav Reporting TechnologiesHackettstown Medical CenterApsgoj4449 [address] NintexNovant Health [facility] [id number] Information: [id number],2ND ORDER Uric Acid, Serum 5.3 mg/dL (Normal) Range: 2.5-7.1 Comments: Therapeutic target for gout patients: <6.0 20-Fcq-412794:26 FECAL OCCULT- Tubes sent home (09237) FECAL OCCULT HGB ASSAY, QUAL, 1-3 SIMULTANEOU negative (Normal) 66-Wvr-914854:37 FERRITIN (31279) Comments: PATIENT NOT FASTINGPERFORMED BY: [employer] Sqqljv7[address]bl[address] [place] [id number] Ferritin, Serum 109 ng/mL (Normal) Range: 13-150 70-Tlf-340582:37 IRON (83868) Comments: PATIENT NOT FASTINGPERFORMED BY: [employer] [place] [id number] Iron, Serum 46 ug/dL (Normal) Range: 35-155 09-Aze-674207:37 FOLIC ACID SERUM (75316) Comments: PATIENT NOT FASTINGPERFORMED BY: [employer] Bakhaj[address] NintexCritical Access Hospitalin [place] [id number] Folate (Folic Acid), Serum >19.9 ng/mL (Normal) Comments: Indeterminate: 2.2 - 3.0 Deficient: <2.2 83-Zcp-097481:37 RETICULOCYTE COUNT MANUL Comments: PATIENT NOT FASTINGPERFORMED BY: [employer] NintexCritical Access Hospitalin [place] [id number] (28637) Reticulocyte Count 1.6 % (Normal) Range: 0.5-3.0 16-Uir-136637:37 LDH (LD) (LACTATE DEHYDROGENASE) Comments: PATIENT NOT FASTINGPERFORMED BY: Restaro Qezhfa[address] [facility] [place] [id number] (57979) LDH 179 [iU]/L (Normal) Range: 0-214 69-Zog-619102:37 VITAMIN B-12 (CYANOCOBALAMIN) Comments: PATIENT NOT FASTINGPERFORMED BY: Restaro Ayvdma[address] [facility]in [place] [id number] (11557) Vitamin B12 668 pg/mL (Normal) Range: 211-946 32-Mhf-294858:37 TSH (82830) Comments: PATIENT NOT FASTINGPERFORMED BY: LabCoHackettstown Medical CenterArtpji8295 [facility] [id number] TSH 2.500 {uIU/mL} (Normal) Range: 0.450-4.500 78-Zth-047608:37 CBC WITH MANUAL DIFF Comments: PATIENT NOT FASTINGPERFORMED BY: LabCoHackettstown Medical CenterWgqarc4890 [facility] [id number] Information: [id number] (35061) Immature Grans (Abs) 0.0 {x10E3/uL} (Normal) Range: [...] (Normal) Range: 4.0-10.5 :37 Uric Acid Blood (21242) Comments: PATIENT NOT FASTINGPERFORMED BY: YAO [facility]6370 [facility] [id number] Uric Acid, Serum 10.0 mg/dL (Abnormal) Range: 2.5-7.1 Comments: Therapeutic target for gout patients: <6.0 :45 Blood Glucose , Office (47197) Blood Glucose , Office 101 (Normal) :45 HgA1C , Office (72856) HgA1C , Office 6.3 % (Normal) Range: 4.6 - 7.1 :25 PT (Prothrobim Time) Comments: Protime/INR Standing Order; PATIENT NOT FASTINGPERFORMED BY: YAO [place] [address]1470 [facility] [id number] Information: [id number] (09423) Prothrombin Time 28.9 {sec} (Abnormal) Range: 8.7-11.5 INR 2.7 (Abnormal) Range: 0.8-1.2 Comments: Reference interval is for non-anticoagulated patients. . Suggested INR therapeutic range for Vitamin K anta gonist therapy: Standard Dose (moderate intensity therapeutic range): 2.0 - 3.0 Higher intensity therapeutic range 2.5 - 3.5 :28 PT (PROTHROMBIN TIME) Comments: PATIENT NOT FASTINGPERFORMED BY: YAO [facility]6370 [facility] [id number] Information: [id number] (12803) Prothrombin Time 24.6 {sec} (Abnormal) Range: 8.7-11.5 INR 2.3 (Abnormal) Range: 0.8-1.2 Comments: Reference interval is for non-anticoagulated patients. . Suggested INR therapeutic range for Vitamin K anta gonist therapy: Standard Dose (moderate intensity therapeutic range): 2.0 - 3.0 Higher intensity therapeutic range 2.5 - 3.5 : Potassium, Serum 5.2 mmol/L (Normal) Comments: PERFORMED BY: YAO [address] [place] [id number] 42 Range: 3.5-5.2 1-Rxx-838814:42 Prothrombin Time (PT) Comments: PERFORMED BY: [facility]6370 [facility] [id number] Prothrombin Time 12.8 {sec} (Abnormal) Range: 8.7-11.5 INR 1.2 (Normal) Range: 0.8-1.2 Comments: Reference interval is for non-anticoagulated patients. . Suggested INR therapeutic range for Vitamin K anta gonist therapy: Standard Dose (moderate intensity therapeutic range): 2.0 - 3.0 Higher intensity therapeutic range 2.5 - 3.5 02-Oyu-649601:08 Prothrombin Time (PT) Comments: PERFORMED BY: [facility]6370 [facility] [id number] Prothrombin Time 19.2 {sec} (Abnormal) Range: 8.7-11.5 INR 1.8 (Abnormal) Range: 0.8-1.2 Comments: Reference interval is for non-anticoagulated patients. . Suggested INR therapeutic range for Vitamin K anta gonist therapy: Standard Dose (moderate intensity therapeutic range): 2.0 - 3.0 Higher intensity therapeutic range 2.5 - 3.5 :19 Vitamin D Hydroxy (12788) Comments: PATIENT WAS FASTINGPERFORMED BY: [facility]6370 [facility] [id number] Vitamin D, 25-Hydroxy 43.1 ng/mL (Normal) Range: 32.0-100.0 Comments: Effective July 09, 2011 Vitamin D, 25-Hydroxy reference intervals will be changing to 30-100. .Recent studies consider the lower li osbaldo of 32.0 ng/mL to be athreshold for optimal health.Ye JARVIS. J Nutr. 2004;135(2):317-22. :19 MICROALBUMIN: CREATININE RATIO Comments: PATIENT WAS FASTINGPERFORMED BY: [place] 8787470 [facility] [id number] (05813) AND (72898) Microalb/Creat Ratio 24.6 {mg/g_creat} (Normal) Range: 0.0-30.0 Creatinine, Urine 23.6 mg/dL (Normal) Range: 15.0-278.0 Microalbumin, Urine 5.8 ug/mL (Normal) Range: 0.0-17.0 :19 LIPID PANEL (83620) Comments: PATIENT WAS FASTINGPERFORMED BY: [employer] Anjffh6655 [facility] [id number] LDL/HDL Ratio 1.5 {ratio_units} (Normal) Range: 0.0-3.2 [...] MANUAL DIFF Comments: PATIENT WAS FASTINGPERFORMED BY: Fewzion Ncvqjs0968 [facility] [id number] Information: [id number] CC:[id number] (74263) Immature Grans (Abs) 0.0 {x10E3/uL} (Normal) Range: [...] COMPREHENSIVE Comments: PATIENT WAS FASTINGPERFORMED BY: LabCo Ckemdh2842 [facility] [id number]; appt 06/05/11 (53056) ALT (SGPT) 16 [iU]/L (Normal) Range: 0-40 [...] Range: 65-99 :59 Blood Glucose , Office (39733) Blood Glucose , Office 129 (Normal) :04 Prothrombin Time (PT) Comments: PERFORMED BY: YAO GreenpieNovant Health Medical Park Hospital [id number] Prothrombin Time 25.1 {sec} (Abnormal) Range: 8.7-11.5 INR 2.4 (Abnormal) Range: 0.8-1.2 Comments: Reference interval is for non-anticoagulated patients. . Suggested INR therapeutic range for Vitamin K anta gonist therapy: Standard Dose (moderate intensity therapeutic range): 2.0 - 3.0 Higher intensity therapeutic range 2.5 - 3.5 :34 PT (PROTHROMBIN TIME) Comments: PATIENT NOT FASTINGPERFORMED BY: YAO BuildDirect70 BlackberryNovant Health Medical Park Hospital [id number] Information: [id number],NO DRAW FEE 2ND ORD ER (28315) Prothrombin Time 30.5 {sec} (Abnormal) Range: 8.7-11.5 INR 2.9 (Abnormal) Range: 0.8-1.2 Comments: Reference interval is for non-anticoagulated patients. . Suggested INR therapeutic range for Vitamin K anta gonist therapy: Standard Dose (moderate intensity therapeutic range): 2.0 - 3.0 Higher intensity therapeutic range 2.5 - 3.5 :38 Vitamin D Hydroxy (32922) Comments: today and 3 mos; PATIENT NOT FASTINGPERFORMED BY: Restaro 6WavesNovant Health Medical Park Hospital [id number] Information: [id number] Vitamin D, 25-Hydroxy 56.7 ng/mL (Normal) Range: 32.0-100.0 Comments: Recent studies consider the lower limit of 32.0 ng/mL to be athreshold for optimal health.Ye JARVIS. J Nutr. 2004;135(2):317-22. 45-Alp-064096:00 MICROALBUMIN: CREATININE Comments: PATIENT NOT FASTINGPERFORMED BY: LabCO2StatsHackettstown Medical CenterKnklsg3142 [facility] [id number] Information: [id number] RATIO (49023) AND (98659) Microalb/Creat Ratio 10.0 {mg/g_creat} (Normal) Range: 0.0-30.0 Microalbumin, Urine 4.3 ug/mL (Normal) Range: 0.0-17.0 Creatinine, Urine 43.2 mg/dL (Normal) Range: 15.0-278.0 :32 Blood Glucose , Office (22102) Blood Glucose , Office 137 (Normal) :32 HgA1C , Office (90126) HgA1C , Office 6.1 % (Normal) Range: 4.6 - 7.1 :38 Prothrombin Time (PT) Comments: PERFORMED BY: [facility]Co[facility] [[email or web address]]Aedyee9548 [facility] [id number] Prothrombin Time 26.7 {sec} (Abnormal) Range: 8.7-11.5 INR 2.5 (Abnormal) Range: 0.8-1.2 Comments: Reference interval is for non-anticoagulated patients. . Suggested INR therapeutic range for Vitamin K anta gonist therapy: Standard Dose (moderate intensity therapeutic range): 2.0 - 3.0 Higher intensity therapeutic range 2.5 - 3.5 :21 HgA1C , Office (99787) HgA1C , Office 6.0 % (Normal) Range: 4.6 - 7.1 :21 Blood Glucose , Office (60679) Blood Glucose , Office 118 (Normal) :10 DEXA BONE DENSITY STUDY (HP) Radiology Report See Note (Normal) Comments: CLINICAL:This is a 65-year-old female patient for post menopausal screening. EXAMINATION:DUAL ENERGY X-RAY ABSORPTIOMETRY / DEXA. TECHNIQUE:Bone Density Measurements (BMD) of lumbar spine and bilateral hips wereobtained using a Authen[employer] scanner.. COMPARISON:None. FINDINGS: Lumbar Spine (L1-L4): g/cm2 [...] on 07/19/10 0726 Sign by: Irvin Cho 02-Vam-62333:00 BILAT SCRN DIGITAL & CAD Radiology Report [...] on 07/19/10 1052 Sign by: ELAINE NIEVES 78-Vbx-86868:59 Prothrombin Time (PT) Comments: PERFORMED BY: YAO Graphdive[address] ClarimedixNovant Health Medical Park Hospital [id number] Prothrombin Time 30.2 {sec} (Abnormal) Range: 8.7-11.5 INR 2.8 (Abnormal) Range: 0.8-1.2 Comments: Reference interval is for non-anticoagulated patients. . Suggested INR therapeutic range for Vitamin K anta gonist therapy: Standard Dose (moderate intensity therapeutic range): 2.0 - 3.0 Higher intensity therapeutic range 2.5 - 3.5 30-Biy-698861:36 PT (Prothrobim Time) Comments: standing order; PATIENT NOT FASTINGPERFORMED BY: Spotfav Reporting TechnologiesHackettstown Medical CenterNhtmxy0197 [facility] [id number] Information: [id number] (93497) Prothrombin Time 17.5 {sec} (Abnormal) Range: 8.7-11.5 INR 1.6 (Abnormal) Range: 0.8-1.2 Comments: Reference interval is for non-anticoagulated patients. . Suggested INR therapeutic range for Vitamin K anta gonist therapy: Standard Dose (moderate intensity therapeutic range): 2.0 - 3.0 Higher intensity therapeutic range 2.5 - 3.5 :22 Prothrombin Time (PT) Comments: PERFORMED BY: Spotfav Reporting TechnologiesHackettstown Medical CenterPitylj3160 [facility] [id number] Prothrombin Time 19.0 {sec} (Abnormal) Range: 8.7-11.5 INR 1.8 (Abnormal) Range: 0.8-1.2 Comments: Reference interval is for non-anticoagulated patients..Suggested INR therapeutic range for Vitamin Kantagonist therapy:Standard Dose (moderate intensitytherapeutic range): 2.0 - 3.0Higher intensity therapeutic range 2.5 - 3.5 :24 HgA1C , Office (34705) HgA1C , Office 6.6 % (Normal) Range: 4.6 - 7.1 :24 Blood Glucose , Office (42566) Blood Glucose , Office 128 (Normal) :25 CBC With Differential/Platelet Comments: PATIENT WAS FASTINGPERFORMED BY: LabCoHackettstown Medical CenterSciidq9552 [facility] [id number] Immature Grans (Abs) 0.0 {x10E3/uL} (Normal) Range: [...] 3.80-5.10 WBC 7.0 {x10E3/uL} (Normal) Range: 4.0-10.5 76-Vjr-58381:25 Comp. Metabolic Panel (14) Comments: PATIENT WAS FASTINGPERFORMED BY: LabCoHackettstown Medical CenterKhntxd8893 [facility] [id number] ALT (SGPT) 18 [iU]/L (Normal) Range: 0-40 [...] With LDL/HDL Comments: PATIENT WAS FASTINGPERFORMED BY: BatesHookNovant Health [facility] [id number] Ratio LDL Cholesterol Calc 67 mg/dL (Normal) [...] Time (PT) Comments: PATIENT WAS FASTINGPERFORMED BY: [employer]6370 [facility] [id number] INR 1.7 (Abnormal) Range: 0.8-1.2 Comments: Reference interval is for non-anticoagulated patients..Suggested INR therapeutic range for Vitamin Kantagonist therapy:Standard Dose (moderate intensitytherapeutic range): 2.0 - 3.0Higher intensity therapeutic range 2.5 - 3.5 Prothrombin Time 18.0 {sec} Range: 8.7-11.5 (Abnormal) 02-May-2010 Vitamin D, 25-Hydroxy 44.2 ng/mL (Normal) Comments: PATIENT WAS FASTINGPERFORMED BY: YESTODATE.COMPromedica Charles And [facility]6370 [facility] [id number] 9:25 Range: 32.0-100.0 Comments: Recent studies consider the lower limit of 32.0 ng/mL to be athreshold for optimal health.Ye JARVIS. J Nutr. 2004;135(2):317-22. 21-Dpd-331502:08 Uric Acid, 24 hr Urine Comments: PERFORMED BY: [facility] Centerlin6370 [facility] [id number] Information: 02/13@6AM 02/14@545AM Uric Acid, Urine 24hr 502.4 {mg/24_hr} (Normal) Range: 250.0-750.0 Uric Acid, Urine 15.7 mg/dL (Normal) 98-Iky-048381:21 Prothrombin Time (PT) Comments: PERFORMED BY: [employer] Rhiksy4296 [facility] [id number] Prothrombin Time 24.1 {sec} (Abnormal) Range: 8.7-11.5 INR 2.4 (Abnormal) Range: 0.8-1.2 Comments: Reference interval is for non-anticoagulated patients..Suggested INR therapeutic range for Vitamin Kantagonist therapy:Standard Dose (moderate intensitytherapeutic range): 2.0 - 3.0Higher intensity therapeutic range 2.5 - 3.5 Uric Acid, Serum 10.8 mg/dL (Abnormal) Comments: PERFORMED BY: [facility]6370 [facility] [id number] :21 Range: 2.4-8.2 37-Gwe-263502:22 HgA1C , Office (61903) HgA1C , Office 6.4 % (Normal) Range: 4.6 - 7.1 10-Uvn-503482:22 Blood Glucose , Office (40089) Blood Glucose , Office 137 (Normal) 19-Vud-893055:38 URIC ACID BLOOD (00544) Comments: PATIENT NOT FASTINGPERFORMED BY: [facility]6370 [facility] [id number] Information: [id number] Uric Acid, Serum 9.0 mg/dL (Abnormal) Range: 2.4-8.2 59-Hlh-932000:16 FOOT,MIN 3 VIEWS (MT) Radiology Report See Note (Normal) Comments: Exam Number: [id number] LEFT FOOT Three views of the left [...] seen. IMPRESSIONPlantar spur. Reported By: IRVIN CHO 85-Dvh-653655:56 PTT (Activated Partial Comments: PATIENT NOT FASTINGPERFORMED BY: Spotfav Reporting TechnologiesHackettstown Medical CenterEnzyos8243 [facility] [id number] Thromboplastin Time) (72412) aPTT 56 {sec} (Abnormal) Range: 24-33 Comments: This test has not been validated for monitoring unfractionated heparintherapy. aPTT-based therapeutic ranges for unfractionated heparintherapy have not been established. For general guidelines onHeparin monitoring, refer to the [facility] Directory of Services. 53-Pdp-860426:56 PT (Prothrobim Time) Comments: PATIENT NOT FASTINGPERFORMED BY: YESTODATE.COMPromedica Charles [facility]6370 [facility] [id number] Information: [id number] (57915) Prothrombin Time 24.2 {sec} (Abnormal) Range: 8.7-11.5 INR 2.5 (Abnormal) Range: 0.8-1.2 Comments: Reference interval is for non-anticoagulated patients..Suggested INR therapeutic range for Vitamin Kantagonist therapy:Standard Dose (moderate intensitytherapeutic range): 2.0 - 3.0Higher intensity therapeutic range 2.5 - 3.5 14-Gxm-629920:49 Prothrombin Time (PT) Comments: PERFORMED BY: YESTODATE.COMPromedica Charles [facility] Hospital6370 [facility] [id number] Prothrombin Time 26.2 {sec} (Abnormal) Range: 8.7-11.5 INR 2.7 (Abnormal) Range: 0.8-1.2 Comments: Reference interval is for non-anticoagulated patients..Suggested INR therapeutic range for Vitamin Kantagonist therapy:Standard Dose (moderate intensitytherapeutic range): 2.0 - 3.0Higher intensity therapeutic range 2.5 - 3.5 Hemoglobin A1c 6.1 % (Abnormal) Comments: PERFORMED BY: Spotfav Reporting TechnologiesHackettstown Medical CenterZuwufu5197 [facility] [id number] :56 Range: 4.8-5.6 Comments: Increased risk for diabetes: 5.7 - 6.4Diabetes: >6.4Glycemic control for adults with diabetes: <7.0.Please note reference interval change :21 HgA1C , Office (46607) HgA1C , Office 6.1 % (Normal) Range: 4.6 - 7.1 :21 Blood Glucose , Office (04506) Blood Glucose , Office 98 (Normal) :46 CBC With Differential/Platelet Comments: A courtesy copy of this report has been sent [phone].PATIENT WAS FASTINGPERFORMED BY: YESTODATE.COMPromedica [facility] Hospital6370 [facility] [id number] Information: [id number] Baso (Absolute) 0.0 {x10E3/uL} (Normal) Range: 0.0-0.2 [...] copy of this report has been sent [phone].PATIENT WAS FASTINGPERFORMED BY: [facility] Riqfhl5781 [facility] [id number] Alkaline Phosphatase, S 85 [iU]/L (Normal) Range: [...] copy of this report has been sent [phone].PATIENT WAS FASTINGPERFORMED BY: Hachiko [facility] Yvnvwu9365 [facility] [id number] Ratio HDL Cholesterol 37 mg/dL (Abnormal) Comments: [...] copy of this report has been sent [phone].PATIENT WAS FASTINGPERFORMED BY: [facility] Vuwnnc9098 [facility] [id number] Microalb/Creat Ratio 7.2 {mg/g_creat} (Normal) Range: 0.0-30.0 Creatinine, Urine 16.6 mg/dL (Normal) Range: 15.0-278.0 Microalbumin, Urine 1.2 ug/mL (Normal) Range: 0.0-17.0 :46 Prothrombin Time (PT) Comments: A courtesy copy of this report has been sent [phone].PATIENT WAS FASTINGPERFORMED BY: Spotfav Reporting TechnologiesHackettstown Medical CenterHwicfk5055 [facility] [id number] Prothrombin Time 28.1 {sec} Range: 8.7-11.5 (Abnormal) INR 2.9 (Abnormal) Range: 0.8-1.2 Comments: Reference interval is for non-anticoagulated patients..Suggested INR therapeutic range for Vitamin Kantagonist therapy:Standard Dose (moderate intensitytherapeutic range): 2.0 - 3.0Higher intensity therapeutic range 2.5 - 3.5 Vitamin D, 25-Hydroxy 27.8 ng/mL Comments: A courtesy copy of this report has been sent [phone].PATIENT WAS FASTINGPERFORMED BY: Spotfav Reporting TechnologiesHackettstown Medical CenterGhxheb6525 [facility] [id number] :46 (Abnormal) Range: 32.0-100.0 Comments: Recent studies consider the lower limit of 32.0 ng/mL to be athreshold for optimal health.Ye JARVIS. J Nutr. 2004;135(2):317-22. 05-Ejp-974670:51 Comp. Metabolic Panel (14) Comments: PERFORMED BY: Spotfav Reporting TechnologiesHackettstown Medical CenterXlcedy7836 [facility] [id number] A/G Ratio 1.3 (Normal) Range: 1.1-2.5 Albumin, [...] :51 Prothrombin Time (PT) Comments: PERFORMED BY: [employer] [facility] [id number] INR 2.3 (Abnormal) Range: 0.8-1.2 Comments: Reference interval is for non-anticoagulated patients. . Suggested INR therapeutic range for Vitamin K anta gonist therapy: Standard Dose (moderate intensity therapeutic range): 2.0 - 3.0 Higher intensity therapeutic range 2.5 - 3.5 Prothrombin Time 22.7 {sec} (Abnormal) Range: 8.7-11.5 :47 PT (Prothrobim Time) (40627) Comments: PATIENT NOT FASTINGClinical Information: [id number] PERFORMED BY: [employer] Grouplin6370 [facility] [id number] INR 2.0 (Abnormal) Range: 0.8-1.2 Comments: Reference interval is for non-anticoagulated patients. . Suggested INR therapeutic range for Vitamin K anta gonist therapy: Standard Dose (moderate intensity therapeutic range): 2.0 - 3.0 Higher intensity therapeutic range 2.5 - 3.5 Prothrombin Time 19.7 {sec} (Abnormal) Range: 8.7-11.5 75-Mel-806288:10 HgA1C , Office (71116) HgA1C , Office 6.3 % (Normal) Range: 4.6 - 7.1 46-Tho-384161:10 Blood Glucose , Office (28318) Blood Glucose , Office 109 (Normal) 30-Tya-478846:58 BILAT SCRN DIGITAL & CAD Radiology Report See Note (Normal) Comments: Exam Number: [id number] MAMMOGRAM, BILATERAL SCREENING DIGITAL AND CAD HISTORYRoutine [...] mammograms werealso examined with computer-aided detection software ([employer], [employer] Reported By: ELAINE NIEVES M.D. 4-Xnr-973167:22 PRO TIME INR 2.3 (Normal) PROTIME 26.1 s (Abnormal) Range: 9.1-11.7 27-Rak-361300:19 CHEST, PA AND LATERAL (MT) Radiology Report See Note (Normal) Comments: Exam Number: [id number] PA AND LATERAL CHEST Mild cardiomegaly appears [...] (Abnormal) Range: 9.1-11.7 :58 HgA1C , Office (54450) HgA1C , Office 5.7 % (Normal) Range: 4.6 - 7.1 :58 Blood Glucose , Office (41868) Blood Glucose , Office 119 (Normal) :39 PT/INR, Office (84054) INR 2.6 (Normal) :55 PT/INR, Office (52423) INR 2.5 (Normal) Comments: aw :01 HgA1C , Office (94570) HgA1C , Office 5.8 % (Normal) Range: 4.6 - 7.1 :01 Blood Glucose , Office (42712) Blood Glucose , Office 111 (Normal) :27 PT/INR, Office (83482) INR 2.2 (Normal) :09 PT/INR, Office (38933) INR 1.8 (Normal) :55 PT/INR, Office (25836) INR 3.3 (Normal) :51 PT/INR, Office (05798) INR 3.2 (Normal) Comments: aw 39-Hlt-372297:00 PT/INR, Office (50302) INR 2.9 (Normal) :14 PT/INR, Office (91907) INR 3.7 (Normal) :50 HgA1C , Office (10361) HgA1C , Office 5.8 % (Normal) Range: 4.6 - 7.1 :50 Blood Glucose , Office (26823) Blood Glucose , Office 119 (Normal) :03 CBC With Differential/Platelet Comments: PATIENT WAS FASTINGPERFORMED BY: [facility]Co Bwypic2644 [facility] [id number] Baso (Absolute) 0.0 {x10E3/uL} (Normal) Range: 0.0-0.2 [...] 11.7-15.0 WBC 7.4 {x10E3/uL} (Normal) Range: 4.0-10.5 80-Eyw-292307:03 Comp. Metabolic Panel (14) Comments: PATIENT WAS FASTINGPERFORMED BY: LabE[facility] Kwmcge4892 [facility] [id number] A/G Ratio 1.1 (Normal) Range: 1.1-2.5 Albumin, [...] Serum 106 mg/dL (Abnormal) Range: 65-99 If -Sammarinese 46 mL/min/1.73 Comments: Note: Persistent reduction for [...] With LDL/HDL Comments: PATIENT WAS FASTINGPERFORMED BY: [address] [id number] Ratio Cholesterol, Total 129 mg/dL (Normal) Range: 100-199 HDL Cholesterol 34 mg/dL (Abnormal) Comments: According to ATP-III Guidelines, HDL-C >59 mg/dL is considered anegative risk factor for CHD. LDL Cholesterol Calc 66 mg/dL (Normal) Range: 0-99 LDL/HDL Ratio 1.9 {ratio_units} (Normal) Range: 0.0-3.2 Triglycerides 144 mg/dL (Normal) Range: 0-149 VLDL Cholesterol Maricruz 29 mg/dL (Normal) Range: 5-40 54-Ije-935974:03 Microscopic Examination Comments: PATIENT WAS FASTINGPERFORMED BY: [address] [id number] Bacteria Few (Normal) Cast Type Hyaline casts (Normal) Casts Present {/lpf} (Abnormal) Crystal Type Amorphous Sediment (Normal) Crystals Present (Abnormal) Epithelial Cells (non 0-10 {/hpf} (Normal) Range: 0 - 10 renal) Mucus Threads Present (Normal) RBC 0-3 {/hpf} (Normal) Range: 0 - 3 WBC 0-5 {/hpf} (Normal) Range: 0 - 5 NTI Urine Tube (Dorsey) COMMNT (Normal) Comments: PATIENT WAS FASTINGPERFORMED BY: [facility] [place] [address] [id number] 1:03 Comments: .A urine culture transport was received with no test indicated. Iftesting is required on this specimen, please contact the [email or web address] Inquiry/Technical Services Department to obtain a Request forWritten Authorization Form. TSH 2.526 {uIU/mL} Comments: PATIENT WAS FASTINGPERFORMED BY: [facility]6370 [facility] [id number] 1:03 (Normal) Range: 0.450-4.500 72-Gjp-894506:03 Urinalysis, Routine Comments: PATIENT WAS FASTINGPERFORMED BY: [facility] [id number] Appearance Clear (Normal) Bilirubin Negative (Normal) Glucose Negative (Normal) Ketones Negative (Normal) Microscopic Examination See below: (Normal) Nitrite, Urine Negative (Normal) Occult Blood Negative (Normal) pH 7.0 (Normal) Range: 5.0-7.5 Protein Negative (Normal) Specific [place] 1.008 (Normal) Range: 1.005-1.030 Urine-Color Yellow (Normal) Urobilinogen,Semi-Qn 0.2 mg/dL (Normal) Range: 0.0-1.9 WBC Esterase Trace (Abnormal) :29 PT/INR, Office ([id number]) INR 2.6 (Normal) Comments: aw 35-Uez-023921:16 HgA1C , Office (68470) HgA1C , Office 6.1 % (Normal) Range: 4.6 - 7.1 09-Ejo-730834:16 Blood Glucose , Office (87396) Blood Glucose , Office 186 (Normal) 84-Rgw-158808:16 PT/INR, Office (21698) INR 2.8 (Normal) :49 BILAT SCRN DIGITAL & CAD Radiology Report See Note (Normal) Comments: Exam Number: [id number] MAMMOGRAM, BILATERAL SCREENING DIGITAL AND CAD HISTORYRoutine [...] mammograms werealso examined with computer-aided detection software ([employer] Reported By: ELAINE NIEVES M.D. :37 PT/INR, Office (70405) INR 2.4 (Normal) :00 PT/INR, Office (53493) INR 1.9 (Normal) PT (PROTHROMBIN TIME) INR - 1.9 s (Normal) Range: 11.5-13.5 :18 DEXA BONE DENSITY/APPEND SKEL Radiology Report See Note (Normal) Comments: Exam Number: [id number] BONE DENSITOMETRY/APPENDICULAR SKELETON HISTORYOsteopenia. TECHNIQUE Bone densitometry [...] of osteopenia. Reported By: ELAINE NIEVES M.D. 17-Vlx-109065:08 PT/INR, Office (77626) INR 2.0 (Normal) 70-Fvu-564465:08 HgA1C , Office (74560) HgA1C , Office 6.3 % (Normal) Range: 4.6 - 7.1 37-Ndi-111110:08 Blood Glucose , Office (09210) Blood Glucose , Office 177 (Normal) :13 [...] (Normal) PROTIME 28.9 s (Abnormal) Range: 10.6-13.2 81-Rxh-055902:08 PRO TIME INR 3.4 (Normal) PROTIME 36.9 s (Abnormal) Range: 10.6-13.2 67-Vmh-956012:20 PRO TIME INR 2.1 (Normal) PROTIME 23.9 s (Abnormal) Range: 10.6-13.2 :39 PRO TIME INR 3.1 (Normal) PROTIME 33.5 s (Abnormal) Range: 10.6-13.2 :22 HgA1C , Office (23217) HgA1C , Office 6.1 % (Normal) Range: 4.6 - 7.1 :22 Blood Glucose , Office (09606) Blood Glucose , Office 105 (Normal) :34 [...] s (Abnormal) Range: 10.6-13.2 :35 PT/INR, Office (25411) INR 2.7 (Normal) :56 HgA1C , Office (92904) HgA1C , Office 5.8 % (Normal) Range: 4.6 - 7.1 :56 Blood Glucose , Office (61479) Blood Glucose , Office 103 (Normal) :28 PRO TIME INR 2.8 (Normal) PROTIME 30.7 s (Abnormal) Range: 10.6-13.2 :55 PRO TIME INR 2.1 (Normal) PROTIME 24.0 s (Abnormal) Range: 10.6-13.2 :05 PT/INR, Office (89188) INR 2.5 (Normal) :05 Blood Glucose , Office (19555) Blood Glucose , Office 100 (Normal) :05 HgA1C , Office (69322) HgA1C , Office 6.2 % (Normal) Range: 4.6 - 7.1 :10 [facility] DIGITAL & CAD Radiology Report See Note (Normal) Comments: Exam Number: [id number] DIGITAL SCREENING MAMMOGRAPHY WITH CAD COMPARISON STUDYDated [...] werealso examined with computer- aided detection software ([employer] Reported By: MAO KURTZ M.D. :49 PRO TIME INR 2.5 (Normal) PROTIME 27.8 s (Abnormal) Range: 10.6-13.2 :13 PRO TIME INR 2.7 (Normal) PROTIME 29.7 s (Abnormal) Range: 10.6-13.2 :14 PRO TIME INR 2.2 (Normal) PROTIME 24.3 s (Abnormal) Range: 10.6-13.2 :26 PT/INR, Office (41234) INR 2.5 (Normal) PT (PROTHROMBIN TIME) INR 2.5 s (Normal) Range: 11.5-13.5 :25 HgA1C , Office (51666) HgA1C , Office 6.0 % (Normal) Range: 4.6 - 7.1 :25 Blood Glucose , Office (13306) Blood Glucose , Office 108 (Normal) :20 [...] Note Reference Interval Change :22 PT/INR, Office (73198) Comments: done- same dose recheck in 2 weeks-- alternate 4/5 INR 2.3 (Normal) :22 HgA1C , Office (02978) Comments: done HgA1C , Office 5.9 % (Normal) Range: 4.6 - 7.1 :21 Blood Glucose , Office (04313) Comments: done Blood Glucose , Office 101 [...] s (Abnormal) Range: 11.7-13.3 :50 PT/INR, Office (85021) INR 1.9 (Normal) PT (PROTHROMBIN TIME) 16.9 s (Abnormal) Range: 11.5-13.5 :50 HgA1C , Office (10785) HgA1C , Office 6.0 % (Normal) Range: 4.6 - 7.1 :50 Blood Glucose , Office (78493) Blood Glucose , Office 95 (Normal) :59 [...] (Abnormal) Range: 11.7-13.3 :40 HgA1C , Office (32289) HgA1C , Office 5.7 % (Normal) Range: 4.6 - 7.1 :40 Blood Glucose , Office (90818) Blood Glucose , Office 115 (Normal) Plan of Care Name Dates Details Instructions Anasarca : Follow up in 3 months Indication: Anasarca Iron deficiency anemia : Reviewed R Programmer Letter Indication: Iron deficiency anemia Valvular disease : Reviewed R Programmer Letter Indication: Valvular disease Lower GI bleed : Reviewed Lab Indication: Lower GI bleed Lower GI bleed : Reviewed R Programmer Letter Indication: Lower GI bleed Essential hypertension with goal blood pressure less than 130/80 : Reviewed R Programmer Letter Indication: Essential hypertension with goal blood [...] : Follow up in 2 weeks with [facility] SaturdayNovember 20 Indication: Cough Cough : Follow [...] : FOLLOW UP IN 1 WEEK with [facility] Indication: Atrial fibrillation Mixed dyslipidemia : Diet, Exercise, and Wt loss Indication: Mixed dyslipidemia Cough : MDI Education Indication: Cough Mixed dyslipidemia : FOLLOW UP IN 2 MONTHS Indication: Mixed dyslipidemia FOLLOW UP IN 3 MONTHS Planned Observations Metabolic Panel, Comprehensive ([id number])Indication: CKD (chronic kidney disease), stage III On: :09 Request CBC & PLATELETS (AUTO) (53428)Indication: Lower GI bleed On: :08 Request PT (PROTHROMBIN TIME) (04287)Indication: Lower GI bleed On: :08 Request Metabolic Panel, Basic (60164)Indication: Shortness of breath On: :58 Request CBC, Platelets & Auto Diff (57083)Indication: Shortness of breath On: :55 Request BNTP (64640)Indication: Shortness of breath On: :55 Request BNTP (79179)Indication: Acute CHF On: 4-Hmv-724937:18 Request METABOLIC PANEL, COMPREHENSIVE (16794)Indication: Acute CHF On: 9-Hsz-596994:18 Request CBC & PLATELETS (AUTO) (88732)Indication: Acute CHF On: 3-Bhi-646774:18 Request FERRITIN (17788)Indication: Iron deficiency anemia On: 6-Cnn-592990:22 Request IRON BINDING CAPACITY (TIBC) (04486)Indication: Iron deficiency anemia On: 1-Svy-484380:22 Request IRON (57193)Indication: Iron deficiency anemia On: 4-Vqc-178312:22 Request IRON & TOTAL IRON BINDING CAPACITY (91889)Indication: Iron deficiency anemia On: 7-Kst-149485:22 Request LIPID PANEL (08884)Indication: Diabetes mellitus type II, controlled On: 6-Kzs-417466:20 Request Metabolic Panel, Comprehensive (05117)Indication: Acute renal failure On: 8-Rin-657024:19 Request PT (Prothrobim Time) (57490)Indication: Walking pneumonia On: 81-Pin-025118:20 Request PT (PROTHROMBIN TIME) (95382)Indication: Atrial fibrillation On: 03-May-2017 Request Comments: Standing order Ferritin (24129)Indication: Anemia, unspecified On: 84-Fiz-656352:45 Request Iron (31552)Indication: Anemia, unspecified On: :45 Request CBC WITH MANUAL DIFF (39160)Indication: Anemia, unspecified On: :45 Request CBC, Platelets & Auto Diff (40220)Indication: Lower GI bleed On: :40 Request Comments: Week of February 25, give lab slip HgA1C , Office (14062)Indication: Diabetes mellitus type II, controlled On: : Request Blood Glucose , Office (04660)Indication: Diabetes mellitus type II, controlled On: :26 Request FERRITIN (11676)Indication: Anemia, unspecified On: :26 Request HGB (HEMOGLOBIN) (71489)Indication: Lower GI bleed On: :44 Request MAGNESIUM (56466)Indication: Acute renal failure On: :11 Request Comments: to be done around January 14 Metabolic Panel, Comprehensive (05108)Indication: Acute renal failure On: :06 Request Comments: to be done at [facility] 01-14 CBC & PLATELETS (AUTO) (32474)Indication: Acute renal failure On: :06 Request Comments: to be done at [facility] on 01-14 URINE SIOBHAN CULTURE-IDENTIFICATN (60214)Indication: Acute renal failure On: 9-Eee-350456:55 Request URINALYSIS (50788)Indication: Acute renal failure On: :51 Request Comments: December 25 Renal function Panel (97154)Indication: Acute renal failure On: :51 Request Comments: December 25 METABOLIC PANEL, BASIC (23154)Indication: Abnormal blood finding On: :00 Request CBC, PLATELETS & AUT DIFF (62861)Indication: Abnormal blood finding On: :00 Request Metabolic Panel, Basic (35915)Indication: Abnormal blood finding On: 9-Ylx-109795:01 Request Comments: stat CBC WITH MANUAL DIFF (11266)Indication: Abnormal blood finding On: :17 Request CBC, Platelets & Auto Diff (67208)Indication: Iron deficiency anemia On: 51-Cye-594260:15 Request PT (PROTHROMBIN TIME) (89801)Indication: Atrial fibrillation On: 7-Nha-859336:36 Request Comments: standing order FERRITIN (78922)Indication: Restless leg syndrome On: :32 Request IRON & TOTAL IRON BINDING CAPACITY (90510)Indication: Restless leg syndrome On: :32 Request MICROALBUMIN: CREATININE RATIO (02078) AND (43545)Indication: Restless leg syndrome On: :32 Request VITAMIN B12 AND FOLATES (23425)Indication: Restless leg syndrome On: : Request CALCIFEDIOL (03928)Indication: Restless leg syndrome On: : Request TSH (THYROID STIMULATING HORMONE) (40689)Indication: Restless leg syndrome On: :32 Request LIPID PANEL (40560)Indication: Mixed dyslipidemia On: :32 Request METABOLIC PANEL, COMPREHENSIVE (44780)Indication: BMI 45.0-49.9, adult On: :32 Request CBC, PLATELETS & AUT DIFF (08035)Indication: BMI 45.0-49.9, adult On: :32 Request FERRITIN (88024)Indication: Iron deficiency anemia On: :20 Request IRON & TOTAL IRON BINDING CAPACITY (18388)Indication: Iron deficiency anemia On: :20 Request LIPID PANEL (67701)Indication: Mixed dyslipidemia On: :20 Request TSH (THYROID STIMULATING HORMONE) (11480)Indication: Mild vitamin D deficiency On: :19 Request VITAMIN B12 AND FOLATES (23221)Indication: Mild vitamin D deficiency On: :19 Request CALCIFEDIOL (75408)Indication: Mild vitamin D deficiency On: :19 Request METABOLIC PANEL, COMPREHENSIVE (77450)Indication: Diabetes mellitus type 2, uncontrolled, without complications On: :19 Request CBC, PLATELETS & AUT DIFF (40598)Indication: Diabetes mellitus type 2, uncontrolled, without complications On: Request LDH (LD) (LACTATE DEHYDROGENASE) (75820)Indication: Anemia, unspecified On: Request FOLIC ACID SERUM (57729)Indication: Anemia, unspecified On: Request SPEP (53632)Indication: Anemia, unspecified On: Request UPEP (49041)Indication: Anemia, unspecified On: Request FERRITIN (46943)Indication: Anemia, unspecified On: Request IRON (69544)Indication: Anemia, unspecified On: Request VITAMIN B-12 (CYANOCOBALAMIN) (31658)Indication: Anemia, unspecified On: Request FQYLE-DAPIETEOEMS-BNUMM (05398)Indication: Other chronic nonalcoholic liver disease On: Request CBC with auto diff (04588)Indication: Essential hypertension with goal blood pressure less than 130/80 On: Request HGB A1C (14482)Indication: Diabetes mellitus type II, controlled On: Request MICROALBUMIN: CREATININE RATIO (35738) AND (86429)Indication: Diabetes mellitus type II, controlled On: Request LIPID PANEL (11523)Indication: Mixed dyslipidemia On: Request Metabolic Panel, Basic (24425)Indication: Diabetes mellitus type 2, uncontrolled, without complications On: Request MICROALBUMIN: CREATININE RATIO (20715) AND (90758)Indication: Diabetes mellitus type II, controlled On: : Request METABOLIC PANEL, COMPREHENSIVE (53867)Indication: Diabetes mellitus type II, controlled On: : Request LIPID PANEL (93317)Indication: Mixed dyslipidemia On: Request CBC (AUTO) (73499)Indication: Anemia, unspecified On: 59 Request Vitamin D Hydroxy (44122)Indication: Mild vitamin D deficiency On: 20-Eno-28062:59 Request PMISR-RKUEVHGHEYB-XVWGR (24864)Indication: Other chronic nonalcoholic liver disease On: :57 Request CBC with auto diff (59169)Indication: Pulmonary hypertension On: :50 Request Hemoglobin Glyclated (HGB A1C) (76490)Indication: Diabetes mellitus type II, controlled On: :50 Request METABOLIC PANEL, COMPREHENSIVE (48961)Indication: Essential hypertension with goal blood pressure less than 130/80 On: :49 Request LIPID PANEL (70009)Indication: Mixed dyslipidemia On: :49 Request LIPID PANEL (37999)Indication: Diabetes mellitus type II, controlled On: :49 Request HEPATIC FUNCTION PANEL (62888)Indication: Diabetes mellitus type II, controlled On: :49 Request Vitamin D Hydroxy (34197)Indication: Mild vitamin D deficiency On: :30 Request METABOLIC PANEL, COMPREHENSIVE (04086)Indication: Diabetes mellitus type II, controlled On: :30 Request LIPID PANEL (84715)Indication: Mixed dyslipidemia On: :30 Request OXGRR-XCGLQQIJPBG-ZSAGH (98675)Indication: Other chronic nonalcoholic liver disease On: :29 Request CBC with auto diff ([id number])Indication: Anemia, unspecified On: :29 Request MICROALBUMIN: CREATININE RATIO (95643) AND (16091)Indication: Diabetes mellitus type II, controlled On: :24 Request METABOLIC PANEL, COMPREHENSIVE (92139)Indication: Essential hypertension with goal blood pressure less than 130/80 On: :24 Request Vitamin D Hydroxy (88762)Indication: Mild vitamin D deficiency On: :24 Request LIPID PANEL (93597)Indication: Mixed dyslipidemia On: :24 Request LDH (LD) (LACTATE DEHYDROGENASE) (49412)Indication: Anemia, unspecified On: :24 Request VITAMIN B-12 (CYANOCOBALAMIN) (95134)Indication: Anemia, unspecified On: :24 Request IRON BINDING CAPACITY (TIBC) (76528)Indication: Anemia, unspecified On: :24 Request FERRITIN (32222)Indication: Anemia, unspecified On: :24 Request IRON (83331)Indication: Anemia, unspecified On: :24 Request CBC W/AUTO DIFF WBC (98515)Indication: Anemia, unspecified On: :24 Request LIPID PANEL (27386)Indication: Mixed dyslipidemia On: : Request METABOLIC PANEL, COMPREHENSIVE (70205)Indication: Essential hypertension with goal blood pressure less than 130/80 On: :02 Request CBC (AUTO) (89457)Indication: Anemia, unspecified On: : Request Vitamin D Hydroxy (73205)Indication: Mild vitamin D deficiency On: : Request EAYEP-JXNWHVRACWE-GGRJO (11694)Indication: Other chronic nonalcoholic liver disease On: : Request PTT (Activated Partial Thromboplastin Time) (99546)Indication: Other chronic nonalcoholic liver disease On: : Request PT (Prothrobim Time) (53235)Indication: Other chronic nonalcoholic liver disease On: : Request PT (Prothrobim Time) (47892)Indication: Atrial fibrillation On: :28 Request Comments: STANDING ORDER CBC WITH MANUAL DIFF (36472)Indication: Anemia, unspecified On: :53 Request LIPID PANEL (50731)Indication: Mixed dyslipidemia On: :53 Request MICROALBUMIN: CREATININE RATIO (83971) AND (62951)Indication: Diabetes mellitus type II, controlled On: 18-Wdz-200302:52 Request METABOLIC PANEL, COMPREHENSIVE (95249)Indication: Diabetes mellitus type II, controlled On: 32-Cxf-024181:52 Request Vitamin D Hydroxy (58041)Indication: Mild vitamin D deficiency On: :52 Request Vitamin D Hydroxy (86831)Indication: Mild vitamin D deficiency On: :13 Request LIPID PANEL (19580)Indication: Mixed dyslipidemia On: :12 Request URIC ACID BLOOD (94717)Indication: Gout On: :12 Request JWXBL-UBUPKGUGFMZ-DKRDZ (43962)Indication: Other chronic nonalcoholic liver disease On: :12 Request PTT (Activated Partial Thromboplastin Time) (75119)Indication: Other chronic nonalcoholic liver disease On: :12 Request METABOLIC PANEL, COMPREHENSIVE (71171)Indication: Essential hypertension with goal blood pressure less than 130/80 On: :12 Request CBC WITH MANUAL DIFF (95215)Indication: Anemia, unspecified On: 68-Xpy-533165:11 Request PT (Prothrobim Time) (83814)Indication: Atrial fibrillation On: 13-Wuj-953807:59 Request Comments: STANDING ORDER HEPATIC FUNCTION PANEL (87811)Indication: Mixed dyslipidemia On: 21-Oql-968153:56 Request CBC WITH MANUAL DIFF (14610)Indication: Gout On: :08 Request LIPID PANEL (35463)Indication: Mixed dyslipidemia On: :08 Request METABOLIC PANEL, COMPREHENSIVE (60480)Indication: Diabetes mellitus type II, controlled On: 54-Urb-505382:08 Request MICROALBUMIN: CREATININE RATIO (77931) AND (25017)Indication: Diabetes mellitus type II, controlled On: :08 Request Metabolic Panel, Basic (20075)Indication: Hyperkalemia On: 02-Dft-597242:40 Request PT (Prothrobim Time) (68421)Indication: Atrial fibrillation On: 6-Odg-108768:35 Request LIPID PANEL (45286)Indication: Mixed dyslipidemia On: 49-Upy-417720:34 Request METABOLIC PANEL, COMPREHENSIVE (70545)Indication: Diabetes mellitus type II, controlled On: 97-Hky-727952:33 Request MICROALBUMIN: CREATININE RATIO (03522) AND (84831)Indication: Diabetes mellitus type II, controlled On: :33 Request CBC WITH MANUAL DIFF ([id number])Indication: Anemia, unspecified On: 67-Tlq-272159:33 Request CBC WITH MANUAL DIFF (96518)Indication: Anemia, unspecified On: 70-Xzo-996022:07 Request METABOLIC PANEL, COMPREHENSIVE (16673)Indication: Renal insufficiency (Renamed from Renal function impairment) On: :06 Request MICROALBUMIN: CREATININE RATIO (35825) AND (12555)Indication: Diabetes mellitus type II, controlled On: :06 Request LIPID PANEL (28025)Indication: Mixed dyslipidemia On: 17-Omh-416367:06 Request SFDZF-NAUNARJXSVQ-PNVVR (62136)Indication: Other chronic nonalcoholic liver disease On: :06 Request Vitamin D Hydroxy (01814)Indication: Mild vitamin D deficiency On: :05 Request Vitamin D Hydroxy (25986)Indication: Mild vitamin D deficiency On: 10-Irt-429689:08 Request FLURESCNT ANTIB SCRN EA (22044) celiac profileIndication: Anemia, unspecified On: :08 Request IGA/IGD/IGG/IGM-EACH (46583) celiac profileIndication: Anemia, unspecified On: :08 Request IMMUNOASSAY, ANALYTE (NON-INFECT) (73802) celiac profileIndication: Anemia, unspecified On: 32-Nwo-754715:08 Request METABOLIC PANEL, COMPREHENSIVE (93414)Indication: Diabetes mellitus type 2, uncontrolled, without complications On: 14-Zfu-133463:06 Request CBC with manual diff (25299)Indication: Anemia, unspecified On: 87-Gjf-127130:49 Request Iron Binding Capacity (TIBC) (78629)Indication: Anemia, unspecified On: 42-Gqj-098461:49 Request Iron (72135)Indication: Anemia, unspecified On: :49 Request Ferritin (76147)Indication: Anemia, unspecified On: 76-Epq-962494:49 Request Metabolic Panel, Basic (68125)Indication: Abnormal blood chemistry On: :09 Request LIPID PANEL (62075)Indication: Mixed dyslipidemia On: 85-Aij-799295:02 Request Metabolic Panel, Basic (57689)Indication: Renal insufficiency (Renamed from Renal function impairment) On: 25-Dbc-853796:01 Request IRON ([id number])Indication: Anemia, unspecified On: 09-Gbg-028078:32 Request Vitamin D Hydroxy (64120)Indication: Mild vitamin D deficiency On: 16-Gtl-213346:49 Request LIPID PANEL (60874)Indication: Mixed dyslipidemia On: 01-Lqc-961558:48 Request CBC WITH MANUAL DIFF (06501)Indication: Anemia, unspecified On: 45-Ekk-337012:48 Request METABOLIC PANEL, COMPREHENSIVE (47199)Indication: Abnormal glucose tolerance test On: 94-Biw-798788:48 Request MICROALBUMIN: CREATININE RATIO (39050) AND (23866)Indication: Abnormal glucose tolerance test On: :48 Request CALCIFEDIOL (71258)Indication: Mild vitamin D deficiency On: 8-Cxn-967763:16 Request LIPID PANEL (88386)Indication: Mixed dyslipidemia On: 6-Aki-920266:16 Request METABOLIC PANEL, COMPREHENSIVE (54849)Indication: Mixed dyslipidemia On: 7-Oqb-497390:16 Request URINALYSIS (32059)Indication: Essential hypertension with goal blood pressure less than 130/80 On: 8-Wmx-588438:16 Request CBC with manual diff ([id number])Indication: Essential hypertension with goal blood pressure less than 130/80 On: 7-Xbl-281293:16 Request LDH (LD) (LACTATE DEHYDROGENASE) (71904)Indication: Essential hypertension with goal blood pressure less than 130/80 On: 1-Zdn-123575:16 Request Iron (61661)Indication: Essential hypertension with goal blood pressure less than 130/80 On: 8-Lnd-487058:16 Request Ferritin (51186)Indication: Essential hypertension with goal blood pressure less than 130/80 On: 1-Snw-546369:16 Request URIC ACID BLOOD (85668)Indication: Gout On: 70-Wwn-362535:49 Request LDH (LD) (LACTATE DEHYDROGENASE) (70599)Indication: Anemia, unspecified On: 08-Zyb-317711:26 Request URIC ACID BLOOD (44830)Indication: Gout On: 4-Mvg-473529:19 Request URIC ACID BLOOD (55527)Indication: Gout On: 2-Cjz-453804:16 Request TSH (THYROID STIMULATING HORMONE) (60640)Indication: Mixed dyslipidemia On: :29 Request URINALYSIS (13222)Indication: Mixed dyslipidemia On: 73-Iyc-109428:28 Request LIPID PANEL (38335)Indication: Mixed dyslipidemia On: :27 Request CBC, PLATELETS & AUT DIFF (61362)Indication: Mixed dyslipidemia On: :18 Request METABOLIC PANEL, COMPREHENSIVE (69000)Indication: Mixed dyslipidemia On: :17 Request CALCIFEDIOL (24431)Indication: Mild vitamin D deficiency On: :16 Request HgA1C , Office (58498)Indication: Abnormal glucose tolerance test On: :59 Request METABOLIC PANEL, BASIC (69285)Indication: Atrial fibrillation On: :30 Request METABOLIC PANEL, BASIC (87526)Indication: Atrial fibrillation On: :59 Request CBC WITH MANUAL DIFF (17156)Indication: Atrial fibrillation On: :11 Request METABOLIC PANEL, COMPREHENSIVE (80780)Indication: Other chronic nonalcoholic liver disease On: :10 Request LIPID PANEL (75728)Indication: Mixed dyslipidemia On: :10 Request LIPID PANEL (19737)Indication: Mixed dyslipidemia On: :11 Request CBC WITH MANUAL DIFF (55852)Indication: Abnormal glucose tolerance test On: 8-Dwt-707807:11 Request MICROALBUMIN: CREATININE RATIO (98714) AND (07706)Indication: Abnormal glucose tolerance test On: 9-Qdm-441589:11 Request Vitamin D Hydroxy (40821)Indication: Mild vitamin D deficiency On: :11 Request METABOLIC PANEL, COMPREHENSIVE (33474)Indication: Other chronic nonalcoholic liver disease On: :10 Request METABOLIC PANEL, COMPREHENSIVE (80622)Indication: Abnormal glucose tolerance test On: 22-Hlk-942282:10 Request MICROALBUMIN: CREATININE RATIO (95510) AND (54953)Indication: Abnormal glucose tolerance test On: 61-Fzv-865368:10 Request LIPID PANEL (37177)Indication: Mixed dyslipidemia On: 61-Xut-116782:10 Request Vitamin D Hydroxy (77462)Indication: Osteopenia On: 99-Hbj-058220:10 Request LIPID PANEL (68009)Indication: Mixed dyslipidemia On: 55-Ued-072245:48 Request Vitamin D Hydroxy (48851)Indication: Mild vitamin D deficiency On: :48 Request CBC WITH MANUAL DIFF (77390)Indication: Abnormal glucose tolerance test On: :47 Request METABOLIC PANEL, COMPREHENSIVE (96204)Indication: Abnormal glucose tolerance test On: 93-Wzy-525672:47 Request LIPID PANEL (16953)Indication: Mixed dyslipidemia On: 34-Ivb-785443:39 Request METABOLIC PANEL, COMPREHENSIVE (96472)Indication: Hypercalcemia On: 84-Pzz-831392:38 Request Vitamin D Hydroxy (73350)Indication: Mild vitamin D deficiency On: :38 Request CBC (AUTO) (15980)Indication: Abnormal glucose tolerance test On: 69-Uml-518201:28 Request Vitamin D Hydroxy (07854)Indication: Osteopenia On: :28 Request CBC WITH MANUAL DIFF (24569)Indication: Essential hypertension with goal blood pressure less than 130/80 On: 92-Rls-110138:28 Request MICROALBUMIN: CREATININE RATIO (30490) AND (16006)Indication: Abnormal glucose tolerance test On: :28 Request METABOLIC PANEL, COMPREHENSIVE (25996)Indication: Hypercalcemia On: 56-Vkw-148556:27 Request Vitamin D Hydroxy (36355)Indication: Osteopenia On: 95-Yuh-586812:34 Request Metabolic Panel, Basic (44847)Indication: Hyperkalemia On: 93-Ofb-923592:04 Request Comments: 1 week LIPID PANEL (21803)Indication: Mixed dyslipidemia On: 00-Zbn-336162:34 Request TSH (81909)Indication: Essential hypertension with goal blood pressure less than 130/80 On: 14-Usv-959365:34 Request CBC WITH MANUAL DIFF (92556)Indication: Essential hypertension with goal blood pressure less than 130/80 On: 24-Abl-525008:34 Request METABOLIC PANEL, COMPREHENSIVE (21548)Indication: Abnormal glucose tolerance test On: 64-Usw-502275:34 Request PT/INR, Office (86053)Indication: Atrial fibrillation On: :55 Request PT/INR, Office (98352)Indication: Atrial fibrillation On: 9-Aie-735690:36 Request PT (Prothrobim Time) (06624)Indication: Atrial fibrillation On: :58 Request METABOLIC PANEL, COMPREHENSIVE (27835)Indication: Essential hypertension with goal blood pressure less than 130/80 On: :09 Request CBC WITH MANUAL DIFF (45340)Indication: Essential hypertension with goal blood pressure less than 130/80 On: 00-Gdn-764826:09 Request MICROALBUMIN: CREATININE RATIO (12676) AND (97017)Indication: Abnormal glucose tolerance test On: :09 Request HEPATIC FUNCTION PANEL ([id number]) On: 09-Yqu-447334:07 Request LIPID PANEL ([id number])Indication: Mixed dyslipidemia On: :07 Request PT/INR, Office ([id number])Indication: Atrial fibrillation On: 68-Mvb-814243:19 Request Comments: done>Wf. PT/INR, Office ([id number])Indication: Atrial fibrillation On: 31-Kuv-805549:30 Request METABOLIC PANEL, COMPREHENSIVE ([id number])Indication: Essential hypertension with goal blood pressure less than 130/80 On: 27-Fyz-046192:34 Request CBC WITH MANUAL DIFF ([id number])Indication: Essential hypertension with goal blood pressure less than 130/80 On: 76-Zir-115861:34 Request HEPATIC FUNCTION PANEL ([id number])Indication: Mixed dyslipidemia On: 61-Zji-623012:34 Request LIPID PANEL ([id number])Indication: Mixed dyslipidemia On: 82-Fls-218817:34 Request LIPID PANEL ([id number])Indication: Mixed dyslipidemia On: 75-Ejk-260382:51 Request URINALYSIS W/O MICRO ([id number])Indication: Essential hypertension with goal blood pressure less than 130/80 On: 42-Yyk-179614:51 Request TSH ([id number])Indication: Essential hypertension with goal blood pressure less than 130/80 On: 91-Qjb-624907:51 Request CBC WITH MANUAL DIFF ([id number])Indication: Essential hypertension with goal blood pressure less than 130/80 On: 29-Iwh-147396:51 Request METABOLIC PANEL, COMPREHENSIVE ([id number])Indication: Essential hypertension with goal blood pressure less than 130/80 On: 66-Crd-754158:51 Request TSH ([id number])Indication: Essential hypertension with goal blood pressure less than 130/80 On: 97-Fdt-441795:44 Request METABOLIC PANEL, COMPREHENSIVE ([id number])Indication: Essential hypertension with goal blood pressure less than 130/80 On: 61-Tuu-297436:44 Request CBC WITH MANUAL DIFF ([id number])Indication: Essential hypertension with goal blood pressure less than 130/80 On: 56-Mde-907236:44 Request MICROALBUMIN URINE QUANT ([id number])Indication: Abnormal glucose tolerance test On: :59 Request METABOLIC PANEL, COMPREHENSIVE ([id number])Indication: Abnormal glucose tolerance test On: :57 Request CBC WITH MANUAL DIFF ([id number])Indication: Abnormal glucose tolerance test On: :57 Request LIPID PANEL ([id number])Indication: Mixed dyslipidemia On: :56 Request HEPATIC FUNCTION PANEL ([id number])Indication: Mixed dyslipidemia On: :56 Request HEPATIC FUNCTION PANEL ([id number])Indication: Mixed dyslipidemia On: :11 Request LIPID PANEL ([id number])Indication: Mixed dyslipidemia On: 65-Zqy-425315:11 Request Planned Encounters Medical; 3 Month FU - On: 10-Sep-2018 9:15 [facility] Sara Swartz CNP, CNP, Mary E Planned Procedures Aerosol Treatment ([id number])By: On: 08-Aug-2017 Intent Kaykay Layne Comments: Exp wheeze still heard after aerosol treatment-better air exchange though. 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 PROTECTION GEOLOGIST Rocephin Injection, 2 Gram On: 06-Aug-2017 Intent ([id number])By: Kaykay Layne CHEST XRAY, PA & LATERAL On: 06-Aug-2017 Intent ([id number])By: Kaykay Layne Aerosol Treatment ([id number])By: On: 06-Aug-2017 Intent Kaykay Layne RIGHT BREAST ULTRASOUND (25803)By: On: 26-Jul-2017 Intent Sara Swartz CNP, CNP, Mary E SCREENING DIGITAL TOMOSYNTHESIS OF On: 20-May-2017 Intent BREAST ([id number])By: Sara Swartz CNP, CNP, Mary E Flu Vaccine (Quadrivalent) On: 20-May-2017 Intent [id number]: Sara Swartz CNP Comments: Lot:[id number]:11/2017Dose:0.5mLRoute:IMSite:L DltdGiven By:mlVIS signed Sara HENRY MAMMOGRAM, SCREENING, BOTH BREAST On: 26-Jun-2016 Intent ([id number])By: Jacinto Sheehan MD DEXA SCAN AXIAL SKELETON On: 27-Mar-2016 Intent ([id number])By: Jacinto Sheehan MD Ultrasound - LiverBy: Jarad RUIZ, On: 19-Dec-2015 Intent Brittany Caro PNEUM VAC ADLT/IMUMNOSPR, On: 05-Jul-2015 Intent SBC/INTRM ([id number])By: Raghu Downing Comments: PNEUMOlot:[id number]:1*13*17site:LT deltoidroute:IMdose:.5mlDEMICK, SMA MAMMOGRAM, SCREENING, BOTH BREAST On: 15-Jun-2015 Intent ([id number])By: Brittany Abraham DO Cartoid DopplerBy: Brittany Abraham DO On: 15-Jun-2015 Intent A Flu Vaccine (Quadrivalent) On: 15-Jun-2015 Intent [id number]: Brittany Abraham DO Comments: Lot #:[id number] date: 01/2016Amount given:prefilled syringeSite given:L Dltd, IMGiven by: AYAKA Morris and ABN signed ADMINISTRATION OF INFLUENZA VIRUS On: 15-Jun-2015 Intent VACCINE ([id number])By: Brittany Abraham DO Overnight Pulse OX ([id number])By: Jarad On: 18-Mar-2015 Intent Brittany RUIZ PFT - CompleteBy: Brittany Abraham DO On: 18-Mar-2015 Intent Radiology - Knee - Right - Weight On: 28-Jun-2014 Intent BearingBy: Brittany Abraham DO Radiology - Knee - Left - Weight On: 28-Jun-2014 Intent BearingBy: Brittany Abraham DO Prevnar 13 ([id number])By: Jarad RUIZ, On: 08-Jun-2014 Intent Brittany Caro Comments: [id number] arm, IMMegan MAMMOGRAM, SCREENING, BOTH BREAST On: 08-Jun-2014 Intent ([id number])By: Brittany Abraham DO Comments: end jul Ultrasound - LiverBy: Jarad RUIZ, On: 08-Dec-2013 Intent Brittany Caro Inhaler Demonstration ([id number])By: On: 20-Nov-2013 Intent Tia HENRY, Magaly Tia HENRY, Sara Mc Aerosol Treatment ([id number])By: Tia On: 20-Nov-2013 Intent Sara HENRY E Sara Swartz CNP Radiology - ChestBy: Miltongordo CARL, On: 04-Nov-2013 Intent Sara Bear CNP Comments: To be Done satNovember 18 Aerosol Treatment ([id number])By: Tia On: 03-Nov-2013 Intent Sara HENRY CNP, Mary E Radiology - ChestBy: Tia HENRY, On: 03-Nov-2013 Intent [facility]NP [facility] E[facility] On: 08-Sep-2013 Intent ([id number])By: Ariane Hartman MAMMOGRAM, SCREENING, BOTH BREASTS On: 01-May-2013 Intent ([id number])By: Brittany Abraham DO Comments: jul DXA, BONE DENSITY, AXIAL SKELETON On: 01-May-2013 Intent ([id number])By: Brittany bAraham DO Comments: jul FLU VAC, SPLIT, >3 YEARS, On: 01-May-2013 Intent INTRAMUSC ([id number])By: Minnie, Comments: Lot #:[id number] date:mount given:0.5mlRoute: IMSite given: L dltdVIS and ABN signedGiven by: LILY Payton ADMINISTRATION OF INFLUENZA VIRUS On: 01-May-2013 Intent VACCINE (G0008)By: Ariane Hartman Eprescribed prescriptions On: 01-May-2013 Intent ([id number])By: Ariane Hartman Eprescribed prescriptions On: 30-Jan-2013 Intent ([id number])By: Ariane Hartman Eprescribed prescriptions On: 31-Oct-2012 Intent (G8553)By: Ariane Hartman Eprescribed prescriptions On: 28-Jul-2012 Intent ([id number])By: Ariane Hartman MAMMOGRAM, SCREENING, BOTH BREASTS On: 07-Jul-2012 Intent ([id number])By: Brtitany Abraham DO Eprescribed prescriptions On: 07-Apr-2012 Intent (G8553)By: Ariane Hartman TDAP VACCINE >7 IM ([id number])By: On: 03-Dec-2011 Intent Ariane Hartman Comments: Lot:[id number]:07/12/13Amt:prefilledRoute:IMSite:left deltGiven By: THERESA Hinson Doppler Ultrasound OtherBy: Fast On: 03-Dec-2011 Intent Brittany RUIZ Comments: both legs stat call wet read Breast Screening - BilateralBy: On: 08-Jun-2011 Intent Brittany Abraham DO FLU VAC, SPLIT, >3 YEARS, On: 05-Jun-2011 Intent INTRAMUSC (10120)By: Minnie, Comments: Lot #:[id number] date:mount given:0.5mlRoute: IMSite given:left deltGiven by: LILY Pyaton ADMINISTRATION OF INFLUENZA VIRUS On: 05-Jun-2011 Intent VACCINE (G0008)By: Ariane Hartman Eprescribed prescriptions On: 14-Feb-2011 Intent (G8553)By: Brittany Abraham DO IMMUNIZ ADMNIN, 1 VAC, SNGL/COMBO On: 30-Nov-2010 Intent ([id number])By: Mona Merritt LPN Comments: Lot #[id number]-01/02/12Site- left arnDose 0.7given by:Eveline ZOSTER VACC, [place] (23392)By: René On: 30-Nov-2010 Intent Mona CARDENAS ADMINISTRATION OF INFLUENZA VIRUS On: 23-May-2010 Intent VACCINE (G0008)By: Ailyn Jones RN FLU VAC, SPLIT, >3 YEARS, On: 23-May-2010 Intent INTRAMUSC (50698)By: Robert ROYAL, Comments: Lot #: [id number] date: mount given: 0.5 mlRoute: IMSite given: left deltoidGiven by: LELE Nguyen DXA, BONE DENSITY, AXIAL SKELETON On: 09-May-2010 Intent ([id number])By: Brittany Abraham DO Comments: nov MAMMOGRAM, SCREENING, BOTH BREASTS On: 09-May-2010 Intent ([id number])By: Brittany Abraham DO Comments: end jun Doppler Ultrasound OtherBy: [place] On: 27-Dec-2009 Intent Sara HENRY E Tia HENRY, Sara Mc Comments: left leg, today, call wet read Radiology - Foot - LeftBy: [place] On: 27-Dec-2009 Intent Sara HENRY E Tia HENRY, Sara Mc Comments: today call wet read MAMMOGRAM, SCREENING, BOTH BREASTS On: 24-Jun-2009 Intent ([id number])By: Maral Krishnan Inhaler Demo ([id number])By: Shelton RUIZ, On: 09-Jun-2009 Intent [facility] - Chest- PA and LatBy: On: 09-Jun-2009 Intent Chikis Peoples DO Aerosol Treatment (30727)By: On: 09-Jun-2009 Intent Chikis Peoples DO Comments: less irritablilty Wax Currettes (11734)By: Shelton On: 09-Jun-2009 Intent Chikis RUIZ Comments: tolerated well - clean -currette used Ear Irrigation (27233)By: Shelton On: 09-Jun-2009 Intent Chikis RUIZ Comments: pt tolerated well Spirometry (88413)By: Shelton RUIZ On: 09-Jun-2009 Intent Chikis Comments: poor effort started to have coughing fit FLU VAC, SPLIT, >3 YEARS, On: 19-May-2009 Intent INTRAMUSC ([id number])By: Ailyn Jones RN IMMUNIZ ADMNIN, 1 VAC, SNGL/COMBO On: 19-May-2009 Intent (41282)By: Ailyn Jones RN Echo CompleteBy: Brittany Abraham DO On: 23-Feb-2009 Intent Echo CompleteBy: Brittany Abraham DO On: 10-Jan-2009 Intent PNEUM VAC ADLT/IMUMNOSPR, On: 02-Aug-2008 Intent SBC/INTRM ([id number])By: Ran, Comments: Lot #[id number] date:mount given:0.5Site given: right deltoidGiven by:Wf. Rios ADMINISTRATION OF PNEUMOCOCCAL On: 02-Aug-2008 Intent VACCINE (G0009)By: Blanca Tong DXA, BONE DENSITY, AXIAL SKELETON On: 06-Apr-2008 Intent (48876)By: Fast DO, Brittany A FLU VAC, SPLIT, >3 YEARS, On: 13-Jun-2007 Intent INTRAMUSC (53293)By: Savannah Vargas IMMUNIZ ADMNIN, 1 VAC, SNGL/COMBO On: 13-Jun-2007 Intent ([id number])By: Savannah Vargas Overnight Pulse Ox([id number])By: On: 05-May-2007 Intent Blanca Tong Echo CompleteBy: Fast DO, Brittany A On: 18-Apr-2007 Intent Overnight Pulse OX ([id number])By: Fast On: 18-Apr-2007 Intent DO, Brittany A MAMMOGRAM, SCREENING, BOTH BREASTS On: 14-May-2006 Intent ([id number])By: Jarad DO, Brittany A EKG (98888)By: Fast DO, Brittany A On: 14-May-2006 Intent Echo CompleteBy: Fast DO, Brittany A On: 14-May-2006 Intent Planned Medications INJECTION, CEFTRIAXONE SODIUM, PER 250 MG Ordered: 06-Aug-2017 Pending Kaykay Layne INJECTION, METHYLPREDNISOLONE SODIUM SUCCINATE, UP TO 125 MG Ordered: 08-Aug-2017 Pending Kaykay Layne Instructions Name Dates Details CKD (chronic kidney disease), stage III : DISCONTINUED - CBC, PLATELETS & AUT DIFF ([id number]) Indication: CKD (chronic kidney disease), stage III CKD (chronic kidney disease), stage III : DISCONTINUED - METABOLIC PANEL, COMPREHENSIVE (87733) Indication: CKD (chronic kidney disease), stage III [...] fibrillation : DISCONTINUED - PT (PROTHROMBIN TIME) (72303) Indication: Atrial fibrillation Atrial fibrillation : DISCONTINUED - PT (PROTHROMBIN TIME) (31378) Indication: Atrial fibrillation Lower GI bleed : DISCONTINUED - CBC, PLATELETS & AUT DIFF (39542) Indication: Lower GI bleed Lower GI bleed : DISCONTINUED - METABOLIC PANEL, COMPREHENSIVE (49537) Indication: Lower GI bleed Diabetes mellitus type [...] : DISCONTINUED - Hemoglobin Glyclated (HGB A1C) (40929) Indication: Diabetes mellitus type II, controlled Osteopenia : DISCONTINUED - Vitamin D Hydroxy (91930) Indication: Osteopenia Essential hypertension with goal blood pressure less than 130/80 : DISCONTINUED - METABOLIC PANEL, COMPREHENSIVE (16417) Indication: Essential hypertension with goal blood pressure less than 130/80 Other chronic nonalcoholic liver disease : DISCONTINUED - BVIUE-NQNSSRXWATA-YLKTD (26604) Indication: 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 : DISCONTINUED - PTT (Activated Partial Thromboplastin Time) (40995) Indication: 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 : DISCONTINUED - PT (PROTHROMBIN TIME) (46518) Indication: Other chronic nonalcoholic liver disease Atrial fibrillation : DISCONTINUED - PT (PROTHROMBIN TIME) (97646) Indication: Atrial fibrillation Atrial fibrillation : DISCONTINUED - PT (PROTHROMBIN TIME) (26259) Indication: Atrial fibrillation Atrial fibrillation : DISCONTINUED - BLD CNT, COMPL CBC W/AUTO DIFF WBC (88376) Indication: Atrial fibrillation Anemia, unspecified : DISCONTINUED - CBC WITH MANUAL DIFF (60297) Indication: Anemia, unspecified Mild vitamin D deficiency : DISCONTINUED - Vitamin D Hydroxy (49163) Indication: Mild vitamin D deficiency Mild vitamin D deficiency : DISCONTINUED - Vitamin D Hydroxy (79782) Indication: Mild vitamin D deficiency Abnormal glucose tolerance test : DISCONTINUED - METABOLIC PANEL, COMPREHENSIVE (43874) Indication: Abnormal glucose tolerance test Abnormal glucose tolerance test : DISCONTINUED - METABOLIC PANEL, COMPREHENSIVE (21389) Indication: Abnormal glucose tolerance test Mixed dyslipidemia : DISCONTINUED - LIPID PANEL (28024) Indication: Mixed dyslipidemia Mixed dyslipidemia : DISCONTINUED - LIPID PANEL (58461) Indication: Mixed dyslipidemia Mixed dyslipidemia : DISCONTINUED - HEPATIC FUNCTION PANEL (03269) Indication: Mixed dyslipidemia Anemia, unspecified : DISCONTINUED - CBC WITH MANUAL DIFF (00557) Indication: Anemia, unspecified Diabetes mellitus type 2, [...] Note for Transition into care: Again to [facility] End: 24-Mar-2018 10:05 n for GI Bleed 03-16-18 Dr. Graham..... Gi doce at [facility] , A pos. on 03-19 Bunm 19 creat 1.53 last hemoglobin on 03-19 discharge date 8.4. Got iron infusion at [facility] and to get on Sat. by Dr. Michelle She wi ll see Dr. Pacheco he is GI at [facility] Mar [address] Graham saw [...] Note for Transition into care: Sent to [facility] for acute blood loss from coumadin, found ulcertations in the duodenum , no dieulofay lesions or AVM's procedue done by An Olmos. Got 2 units FFP and 8 units of blood, at [facility] and 6 more at [facility]. INR was 3.7 and day before 2.1Pt [...] reevaluate ??Asking if still needs to see regional driver Dr. Jean-Baptisteting periodic infusions and iron supplements, [...] to stay on coumadin because of afib. Vinine did scope and found same as Faby., [...] reevaluate Asking if still needs to see regional driver Dr. Caruso periodic infusions and iron supplementsEncounter [...] for chroni c medical issues: Seeing new information assoc Dr. Merchant Has had iron levels and iron infusions . Asking if still needs to see regional driver Dr. MccurdyGetting periodic infusions and iron supplements, [...] explosive GI Bleed wten tot ER at [facility] with CBC with hemoglobin of 8.7 then to 7.9 given a unit of blood, See by Dr. Hobbs for lower GI bleed with colonoscopy found bleeding diverticuli . Dr. Anaya hospitalist . Was on coumadin but taken off Encounter Diagnosis: KS (myocardial infarction), Nonsmoker, Lower GI bleed, BMI [...] (276.7), Sepsis, Anemia, unspecified, Iron deficiency anemia, KS (myocardial infarction) [facility] Office Visit [...] patient does not have 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 of deputy commonwealth's attorney or living will. The patient has noticed lack of energy. Other providers contributing to the patient's care are gold marker (Dr. Raymundo), [employer] retail (Leslie) and other: (chiropractor- once monthly). 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 The patient has noticed lack of energy. Other providers contributing to the patient's care are [facility] (Dr. Raymundo) and other: (chiropractor- once monthly). [...] to 110's/60's). 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 Current medication use: no eguenia End: 16-Jan-2007 14:00 e effects and compliant [...] for ER visit: note: (Pt. was at [facility] for Heart cath. 07-30-2006). The patient [...] (427.31), Hyperlipidemia, Mixed (272.2), Coronary atherosclerosis of tangirnaq coronary vessel (414.01) [facility] Historical [...]
--- OUTSIDE RECORDS SUMMARY | 2018-11-06 12:18 | XMS RPT_ITS | Continuity of Care Document ---
:1945 Author Organization [facility] Address [facility] [address] Phone Care Team Providers Name Role Phone Sara Swartz CNP Unavailable Jarad Brittany RUIZ Gordo Unavailable Natalia Mccurdy Unavailable Mackenzie Blanton Unavailable Unavailable Long BUTTON MACHINE OPERATOR, Mona Kemp Unavailable Unavailable Jayda Frias Unavailable Unavailable Alana Mathis Unavailable Unavailable Vishal Bradford Unavailable Unavailable Slarb BUTTON MACHINE OPERATOR, Alana Unavailable Unavailable Unavailable Unavailable Problems Name [...] creat 1.75 Status: Active Coronary atherosclerosis of [place] coronary vessel (I25.10, 414.01) Comments: catheterization: many [...] diet and exercise.Patient has 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 of vacuum applicator operator and living will.( and daughter) Status: Active [...] Hypoxia (R09.02, 799.02) Comments: prescribed oxygen by [facility] at discharge, will ask her to [...] GI bleed (K92.2, 578.9) Comments: Admitted to [facility] with hemoglobin, 5.2 got 7 units of blood, was 8.7 on February 10, 2018,8.5 on Holly 18, 2018Admitted to [facility] 03-19-18 with GI bleed last hemoglobin 03-19 is 8.4 Status: Active Lymphedema (I89.0, 457.1) Comments[facility] Status: Active PR (myocardial infarction) (I21.9, 410.90) Comments: per elevated [...] 278.01) Comments: 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 Prior Knowledge [facility] [employer] Fetch MD work Status: 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, [...] atreium Left atrium enlargement, Rigoberto sending to [facility] main [facility] for eval Status: Active Medications [...] Refills: 0 Ordered:20-May-2017 Tiffanihamiltongordo HENRY Sara Raymond CODING AUDITOR, Sara Mc Start : 20-May-2017 Active Furosemide 40 MG Oral Tablet 1 (one) Tablet daily for 0 days Quantity: 90 {Tablet} Refills: 3 Ordered:06-Mar-2018 Tia CODING AUDITOR, Sara Raymond CODING AUDITOR, Sara Mc Start : 06-Mar-2018 Active HydrALAZINE HCl 25 MG Oral Tablet 1 Tablet bid for 90 days Quantity: 180 {Tablet} Refills: 3 Ordered:10-Jun-2018 Tia CARL Sara Raymond CODING AUDITOR, Sara Mc Start : 10-Jun-2018 Active LANCETS (Miscellaneous) 1 (one) Misc daily for 0 days Quantity: 100 {Misc} Refills: 3 Ordered:31-Oct-2012 Ariane Hartman Start : 28-Jul-2012 Active Comments:Reli-On Lancets Magnesium Oxide 400 (240 Mg) MG Oral Tablet 1 (one) Tablet qd for 0 days Quantity: 60 {Tablet} Refills: 4 Ordered:31-Dec-2016 Tia CARL Sara Raymond CODING AUDITOR, Sara Mc Start : 31-Dec-2016 Active Metoprolol Tartrate 100 MG Oral Tablet 1 (one) Tablet bid for 90 days Quantity: 180 {Tablet} Refills: 3 Ordered:16-Apr-2018 Tia CARL Sara Raymond CODING AUDITOR, Sara Mc Start : 16-Apr-2018 Active Multivitamins [...] Quantity: 4 {Tablet} Refills: 1 Ordered:15-Jan-2018 Vishal Bradfrod Start : 08-Sep-2014 End : 15-Jan-2018 Inactive [...] Quantity: 60 {Tablet} Refills: 3 Ordered:29-Jan-2018 Tia HERNY, Sara Raymond CNP, Sara Mc Start : 21-Jan-2018 End : 29-Jan-2018 Inactive PredniSONE 10 MG Oral Tablet 1 Tablet TAD for 0 days Quantity: 18 {Tablet} Refills: 0 Ordered:20-Sep-2017 Alana Lange LPN Start : 08-Aug-2017 End : 20-Sep-2017 Inactive Comments:30mg x 3 days, 20mg x 3 days,10mg x 3 days Rhinocort Allergy 32 MCG/ACT Nasal Suspension 2 (two) [place] In each nostril Daily for 1 days [...] Quantity: 30 {Tablet} Refills: 0 Ordered:01-May-2011 Tia CODING AUDITOR, Sara Raymond CODING AUDITOR, Sara Mc Start : 01-May-2011 End : 01-May-2011 Discontinued CO-Q 10 [place]-3 Fish Oil Oral Capsule 1 (one) Capsule [...] 20-May-2017 End : 10-Jun-2018 Discontinued VITAMIN D, 25100JHQX (Oral Capsule) 1 (one) Capsule q week for 0 days Quantity: 12 {Capsule} Refills: 0 Ordered:03-Feb-2010 Ariane Hartman Start : 03-Feb-2010 End : 31-Aug-2011 Discontinued Comments:This order discontinued per [facility]. VYTORIN, 10-20MG (Oral Tablet) 1 Tablet [...] Comments: secondary to sepsis, dehyrdation, and ? PR now improving was 2.05 now 1.[address] Mccurdy, now creat is at baseline, of 1.2 on 05-23, ok per Dr. Mcucrdy for me to follow Status: Inactive as [...] Visit Report Result: Comments: See Note; NOTES: [facility] [place] [place] [address] OFFICE VISIT Date of Service: 05/27/18 1342 MR#: [id number] Acct: [id number] Name: GABBI ROLLE Rep #: [id number] : 1945 From: Halley Khan MD Age/Sex: [...] GI bleed and was urgently transferred to [facility] where she underwent a nuclear medicine [...] GI blood loss Despite oral iron supplementation (prison), . Patient was transfused with packed red [...] Q4H PRN PRN 01/03/18 [Combivent Respimat Inhal [place]] Furosemide [Lasix] 40 mg PO BID 01/15/18 Primary Care Provider: Sara Swartz Refer [facility] Provider: Halley Khan MD 05/27/18 1411 <Electronically signed by Halley Khan MD> Date Halley Khan MD Cosigner Signature: Date (if applicable) CC: 26-May-2018 Cardiology Visit Report Result: Comments: See Note; NOTES: [facility] [address] [place] [address] OFFICE VISIT Date of Service: 05/26/18 MR#: [id number] Acct: [id number] Name: GABBI ROLLE Rep #: [id number] : 1945 Provider: Niraj Raymundo MD Age/Sex: 73/F Location: [facility] Status: Signed HPI HPI Chief Complaint: Follow [...] syncopal episodes. She continues to see the network operations technician for follow-up of her blood work. She [...] Confirmed 05/26/18] Ipratropium/Albuterol Sulfate [Combivent Respimat Inhal [place]] 2 puff IH Q4H PRN PRN 01/03/18 [...] PFSH Medical History Atherosclerotic heart disease of [place] coro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 pectoris (Chronic) Chronic [...] watchman device as well 6. 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 Plan Detail Follow Up 3 Months (shingle bolt cutter) Coding Level of Care Code Off vis,est,level 5 Diagnoses Nonrheumatic aortic (valve) stenosis I35.0 Nonrheumatic mitral (valve) insufficiency I34.0 Othe r secondary pulmonary hypertension I27.29 Essential hypertension I10 Hypertension type: essential hypertension Chronic atrial fibrillation I48.2 Atherosclerosis of [place] coronary artery of [place] heart without angina pectoris I25.10 [place] vs. transplanted heart: [place] heart CKD (chronic kidney disease), stage III N18.3 Anemia, unspecified type D64.9 Anemia type: unspecified type Coding Level of C are Code Off vis,est,level 5 Diagnoses Nonrheumatic aortic (valve) stenosis I35.0 Nonrheumatic mitral (valve) insufficiency I34.0 Other secondary pulmonary hypertension I27.29 Essential hypertension I1 0 Hypertension type: essential hypertension Chronic atrial fibrillation I48.2 Atherosclerosis of [place] coronary artery of [place] heart without angina pectoris I25.10 [place] vs. transplanted heart: [place] heart CKD (chronic kidney disease), stage III N18.3 Anemia, unspecified type D64.9 Anemia type: unspecified type 05/26/18 1541 <Electronically signed by Niraj Raymundo MD> Date Niraj Raymundo MD Cosigner Signature: Date (if applicable) CC: Sara Swartz DANIELE 23-May-2018 Echo Transesophageal (YOUNG) Result: Comments: See Note; NOTES: [facility] Cardiovascular Services [address] [place] [address] Echo Transesophageal (YOUNG) 05/23/18 0924 MR#: [id number] Acct: [id number] Name: GABBI GATES Rep #: [id number] : 1945 73 From: Niraj Raymundo MD Attending Dr: Niraj Raymundo MD Status: REG CLI Ordering Dr: Niraj Raymundo MD Date: 05/23/18 Location: [facility] Sex: F C Admitted: Reason For Study: Aortic Stenosis Medication YOUNG probe passed with minimal difficulty. No complications were noted. Topex Topical [place] given X4 metered doses orally. Versed 2 [...] Date Niraj Raymundo MD CC: Sara caro PIPE AND BOILER COVERS SUPERVISOR; Niraj Raymundo MD Date Dictated: 05/23/18 0924 Date Transcribed: 05/23/181511 Plastic Parts Fabricator Trimmer: Signed 16-May-2018 12 Lead EKG performed by ABHAY Result: Comments: See Note; NOTES: [facility] [address] [place] [address] 12 Lead EKG performed by ABHAY 05/16/18 0957 MR#: [id number] Acct: [id number] Name: GABBI RODAS Rep #: [id number] : 1945 72 From: Niraj Raymundo MD Attending Dr: Niraj Raymundo MD Status: DEP AMB Ordering Dr: Niraj Raymundo MD Date: 05/16/18 Location: [facility] Sex: F C Admitted: ORDER # : [id number] BMS/12 Lead EKG performed by [facility] Possible atrial fibrillation Low voltage -possible pulmonary disease. ABNORMAL 05/19/18 0730 <Electronically signed by Niraj Raymundo MD> John e Niraj Raymundo MD CC: Sara Swartz NP Date Dictated: 05/16/18956 Date Transcribed: 05/16/18956 Plastic Parts Fabricator Trimmer: [place] Signed 03-May-2018 Echocardiogram Complete Result: Comments: See Note; NOTES: [facility] Cardiovascular Services [address] [place] [address] Echo Complete 05/02/18 1405 MR#: [id number] Acct: [id number] Name: GABBI ROLLE Rep #: [id number] : 1945 72 From: Niraj Raymundo MD [...] ____ Niraj Raymundo MD CC: Sara Swartz PIPE AND BOILER COVERS SUPERVISOR; Niraj Raymundo MD Date Dictated: 05/02/18 1405 Date Transcribed: 05/03/18 1436 Plastic Parts Fabricator Trimmer: Signed 29-Apr-2018 Oncology Visit Report Result: Comments: See Note; NOTES: [facility] [address] [place] [address] OFFICE VISIT Date of Service: 04/29/18 1417 MR#: [id number] Acct: [id number] Name: GABBI ROLLE Rep #: [id number] : 1945 From: Halley Khan MD Age/Sex: [...] GI bleed and was urgently transferred to [facility] where she underwent a nuclear medicine [...] GI blood loss Despite oral iron supplementation (prison), . Patient was transfused with packed red [...] Q4H PRN PRN 01/03/18 [Combivent Respimat Inhal [place]] Furosemide [Lasix] 40 mg PO BID 01/15/18 Primary Care Provider: Sara Swartz Referring Provider: Halley Khan MD [id number] <Electronically signed by Halley Khan MD> Date Halley Khan MD Cosigner Signature: Date (if applicable) CC: 29-Apr-2018 Cardiology Visit Report Result: Comments: See Note; NOTES: [facility] [address] [place] [address] OFFICE VISIT Date of Service: 04/29/18 MR#: [id number] Acct: [id number] Name: GABBI ROLLE Rep #: [id number] : 1945 Provider: Niraj Raymundo MD Age/Sex: 72/F Location: [facility] Status: Signed [facility] Chief Complaint: Follow up Details: GABBI ROLLE, [...] syncopal episodes. She continues to see the network operations technician for follow-up of her blood work. Her [...] Confirmed 04/29/18] Ipratropium/Albuterol Sulfate [Combivent Respimat Inhal [place]] 2 puff IH Q 4H PRN PRN [...] PO PRN PRN 04/29/18 [History Confirmed 04/29/18] [facility] Medical History Atherosclerotic heart disease of [place] zita 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 pectoris (Chronic) [...] vessel or lesion type , unspecified whether [place] or transplanted heart I25.10 Plan She does [...] above. Plan Detail Follow Up 4 Months ([facility]) Coding Level of Care Code Off vis,est,level 5 Diagnoses Chronic atrial fibrillation I48.2 Essential hypertension I10 Hypertension type: essential hypertension Coronary artery disease, angina p resence unspecified, unspecified vessel or lesion type, unspecified whether [place] or transplanted heart I25.10 Coronary Disease-Associated Artery/Lesion type: unspecified vessel or lesion type [place] v s. transplanted heart: unspecified whether [place] or transplanted heart Associated angina: angina presence [...] unspecified vessel or lesion type, unspecified whether [place] or transplanted heart I25.10 Coronary Disease-Associated Artery/Lesion type: unspecified vessel or lesion type [place] vs. transplanted heart: unspecified whether [place] or transplanted heart Associated angina: angina presence [...] Visit Report Result: Comments: See Note; NOTES: [facility] [address] [place] [address] OFFICE VISIT Date of Service: 04/02/18 1329 MR#: [id number] Acct: [id number] Name: GABBI ROLLE Rep #: [id number] : 1945 From: Halley Khan MD Age/Sex: [...] GI bleed and was urgently transferred to [facility] where she underwent a nuclear medicine [...] GI blood loss Despite oral iron supplementation (insulation engineman), . Patient was transfused with packed red [...] Q4H PRN PRN 01/03/18 [Combivent Respimat Inhal [place]] Furosemide [Lasix] 40 mg PO BID 01/15/18 Primary Care Provider: Sara Swartz Referring Provider: Halley olivares MD 04/02/18 1419 <Electronically signed by Halley Khan MD> Date Halley Khan MD Cosigner Signature: Date __ (if applicable) CC: 05-Mar-2018 Oncology Visit Report Result: Comments: See Note; NOTES: [facility] [address] [place] [address] OFFICE VISIT Date of Service: 03/05/18 1431 MR#: [id number] Acct: [id number] Name: GABBI ROLLE Rep #: [id number] : 1945 From: Halley Khan MD Age/Sex: [...] GI bleed and was urgently transferred to [facility] where she underwent a [facility] medicine GI blood loss imaging followed [...] Dr. Hobbs, ) despite oral iron supplementation (insulation engineman) . Patien t was transfused with packed [...] sa Referring Provider: Halley Khan MD 03/05/18 0290 <Electronically signed by Halley Khan MD> Date Halley yee Signature: Date (if applicable) CC: 27-Feb-2018 12 Lead Electrocardiogram Result: Comments: See Note; NOTES: [facility] Cardiovascular Services [address] [place] [address] 12 Lead EKG 02/23/18 1015 MR#: [id number] Acct: [id number] Name: GABBI ROLLE Rani p #: [id number] : 1945 72 From: Saleem Zavala MD [...] Abnormal ECG Confirmed by SALEEM ZAVALA MD ([id number]), food expeditor JOSE GUADALUPE ROLLEETTE ([id number]) on 02/27/2018 1:03:39 PM Referred By: Sara Swartz Confirmed By:SALEEM ZAVALA MD 02/27/18 1303 Date __ Saleem Zavala MD CC: Sara Swartz NP; Nelson Soria MD Signed 23-Feb-2018 Emergency Department Summary Result: Comments: See Note; NOTES: [facility] Medical Records Department [address] [place] [address] Emergency Department Summary 02/23/18 1009 MR#: [id number] Acct: [id number] Name: GABBI ROLLE Rep #: [id number] : 1945 72 From: Nelson Soria MD [...] recently hospitalized about 3 weeks ago at [facility] for GI bleed. She was seen here initially, and was found to be significantly anemic with a supra therapeutic INR. She was started on a Protonix drip. S he underwent a bleeding scan which showed 2 areas of bleeding from the duodenum and the ascending colon. Given her multiple comorbidities, she was transferred to the ICU at [facility]. While there, patient was transfused. She [...] based on her recent hospitalization at [facility] and multiple comorbidities, it was thought that she would best be served back at a tertiary facility. Patient was started on a Protonix drip given history of duodenal ulcer and bleeding. The patie nt was discussed with Dr. Rowe at [facility] who excepted the patient transfer. She will be transferred to the intensive care unit. Treatment Plan: [] Disposition: Transfer Impression: 1. GI bleed 2. Symptomatic anemia This note was generated with Flirtomatic dictation software. It may contain incorrect words, [...] problems, contact your Primary Care Provider. Call [employer] [facility] ([phone]) or report to the closest Emergency Room. Call 911 if necessary. 02/23 1228 <Electronically signed by Nelson Soria MD> Date Nelson Soria MD Cosigner Signature (If Indicated): Date CC: Sara Swartz NP 23-Feb-2018 Chest 1 View (Portable) Result: Comments: See Note; NOTES: [facility] Imaging Services [address] [place] [address] Chest 1 View (Portable) MR#: [id number] Acct: [id number] Name: GABBI ROLLE Rep #: [id number] : 1945 F 72 From: Heriberto Dickey PCP: Sara Swartz NP Status: REG ER Study: Chest 1 View (Portable) Date of Exam: 02/23/18 Exam# [id number] Ordering Dr: Nelson Soria MD STUDY: X-RAY [...] CC: Sara Swartz NP; Nelson Soria MD Plastic Parts Fabricator Trimmer: Signed 06-Feb-2018 12 Lead Electrocardiogram Result: Comments: See Note; NOTES: [facility] Cardiovascular Services [address] [place] [address] 12 Lead EKG 02/04/18 1427 MR#: [id number] Acct: [id number] Name: GABBI ROLLE Re p #: [id number] : 1945 72 From: Niraj Raymundo MD [...] ECG Confirmed by RIGOBERTO BALDWIN, NIRAJ ([id number]), food expeditor JONATHON ROLLE ([id number]) on 02/06/2018 9:00:22 AM Referred By: SAMMIE Confirmed By:NIRAJ RAYMUNDO MD 02/06/18 0900 Date Niraj Raymundo MD CC: Sara Swartz NP; Hayde Ruvalcaba DO Signed 04-Feb-2018 Emergency Department Summary Result: Comments: See Note; NOTES: [facility] Medical Records Department [address] [place] [address] Emergency Department Summary 02/04/18 1225 MR#: [id number] Acct: [id number] Name: GABBI ROLLE Rep #: [id number] : 1945 72 From: Hayde Ruvalcaba DO [...] is pe nding Treatment Plan: [Transfer to [facility]]. I discussed case with tester electronic scale who accepted transfer of the patient. I did give patient 5 mg of vitamin K subcu. Disposition: [Transfer] Impre ssion: Upper GI bleed and lower GI bleed [] This note was generated with Kaboodleation software. It may contain incorrect words, spelling, [...] your Primary Care Provider. Call [facility] ([phone]) or report to the closest Emergency Room. Call 911 if necessary. 02/04/18 1715 <Electronically signed by Hayde Ruvalcaba DO> Date Hayde Ruvalcaba DO Cosigner Signature (If Indicated): Da te CC: Sara Swartz NP 04-Feb-2018 GI Bleed Scan Result: Comments: See Note; NOTES: [facility] Imaging Services [address] [place] [address] GI Bleed Scan MR#: [id number] Acct: [id number] Name: GABBI ROLLE Rep #: [id number] : 1945 F 72 From: Manuel Montoya MD PCP: Sara Swartz NP Status: REG ER Study: GI Bleed Scan Date of Exam: 02/04/18 Exam# [id number] Ordering Dr: Hayde Ruvalcaba DO NM GI [...] , NM/GI Bleed Scan CC: Sara Swartz PIPE AND BOILER COVERS SUPERVISOR; Hayde Ruvalcaba DO Plastic Parts Fabricator Trimmer: Signed 29-Jan-2018 Oncology Visit Report Result: Comments: See Note; NOTES: [facility] [address] [place] [address] OFFICE VISIT Date of Service: 01/29/18 1339 MR#: [id number] Acct: [id number] Name: GABBI ROLLE Rep #: [id number] : 1945 From: Halley Khan MD Age/Sex: [...] consider capsule study) despite oral iron supplementation (prison) . Patient was transfused with packed red [...] puff IH DAILY 01/03/18 [Combivent Respimat Inhal [place] ] Furosemide [Lasix] 40 mg PO BID 01/15/18 Primary Care Provider: Sara Swartz Referring Provider: Halley Khan MD 01/29/18 0290 <Electronically signed by Halley Khan MD> John e Halley Khan MD Cosigner Signature: Date (if applicable) CC: Sara Swartz 16-Jan-2018 Surgery Visit Report Result: Comments: See Note; NOTES: [facility] [address] [place] [address] OFFICE VISIT Date of Service: 01/15/18 MR#: [id number] Acct: [id number] Name: GABBI ROLLE Rep #: [id number] : 1945 Provider: Bo Madrid MD Age/Sex: 72/F Location: [facility] Status: Signed Intake Intake Visit Reasons: F/U [...] Confirmed 01/08/18] Ipratropium/Albuterol Sulfate [Combivent Respimat Inhal [place]] 1 puff IH DAILY 01/03/18 [History Confirmed 01/08/18] Furosemide [Lasix] 40 mg PO BID 01/15/18 [History Confirmed 01/15/18] PFSH Medical History Atherosclerotic heart disease of [place] coronary artery with out angina pectoris (Chronic) [...] no longer needed. Bo Madrid MD Pager: [facility] [address] [place] [address], [address] [place] [address] Office: Fax: Coding Level of Care Code Global Post Op Diagnoses Encounter for insertion of venous access port Z45.2 01/16/18 0936 <Electronically signed by Bo Madrid MD> D ate Bo Madrid MD Cosigner Signature: Date (if applicable) CC: Sara Swartz NP 08-Jan-2018 Operative Report Result: Comments: See Note; NOTES: [facility] Medical Records Department [address] [place] [address] [place] [address] Operative Report 01/08/18 1157 MR#: [id number] Acct: [id number] Name: FINA ROLLE Rep #: [id number] : 1945 72 From: Bo Madrid MD PCP: Sara Swartz NP Status: REG SDC Y Location: [place] [address] Problem List (1) Encounter for insertion of venous access port Status: [place] (2) Anemia Status: Chronic Qualifiers: Anemia type: [...] Placement Result: Comments: See Note; NOTES: [facility] Imaging Services [address] [place] [address] CXR for Line Placement MR#: [id number] Acct: [id number] Name: GABBI ROLLE Rep #: [id number] : 1945 F 72 From: Irvin Cho MD PCP: Sara Swartz NP Status: REG [facility] Study: CXR for Line Placement Date of Exam: 01/08/18 Exam# [id number] Ordering Dr: Bo Madrid MD STUD Y: [...] Irvin Cho MD at 12:57 EDT Tel [phone], Service support , CC: Sara Swartz NP; Bo Madrid MD Plastic Parts Fabricator Trimmer: Signed 08-Jan-2018 Discharge Instruction Result: Comments: See Note; NOTES: [facility] Medical Records Department [address] [place] [address] Instructions for Home/Discharge Instructions 01/08/18 1155 MR#: [id number] Acct: [id number] Name: GABBI ROLLE Rep #: [id number] : 1945 72 From: Bo Madrid MD PCP: Tia SANABRIA, Sara Status: REG [facility] Discharge Diet: No Restrictions - Pain medication [...] 11/29/17 Ipratropium/Albute rol Sulfate [Combivent Respimat Inhal [place]] 1 puff IH DAILY 01/03/18 Primary Care Physician: Sara Swartz [Primary Care Provider] - Please Follow Up With: Bo Madrid MD When: call tomorrow to make 2 week follow up appt [phone] 01/08/18 1156 <Electronically signed by Bo Madrid MD> Date Bo Madrid MD CC: Sara Swartz NP 03-Jan-2018 Surgery Visit Report Result: Comments: See Note; NOTES: [facility] [address] [place] [address] OFFICE VISIT Date of Service: 01/03/18 MR#: [id number] Acct: [id number] Name: GABBI ROLLE Alexandro Rep #: [id number] : 1945 Provider: Bo Madrid MD Age/Sex: 72/F Location: [facility] Status: Signed Intake Vital Signs01/03/18 Height 5 ft 7 in 01/03/18 Weight: 378 lb 9 oz Body Mass Index (BMI) 59.3 Intake Visit Reasons: Port Placement Chief Complaint: port consult Window Maker Required: No Is patient in pain?: No [...] Confirmed 01/03/18] Ipratropium/Albuterol Sulfate [Combivent Respimat Inhal [place]] 1 puff IH 01/03/18 [History Confirmed 01/03/18] Is last menstrual p eriod known: No Post menopausal: Yes Patient : No PFSH Medical History Atherosclerotic heart disease of [place] coro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 pect veronika (Chronic) [...] the day of. Bo Madrid MD Pager: [facility] [address] [place] [address], [address] [place] [address] Office: Coding Level of Care Code Off vis,new,level 3 Diagnoses Encounter for insertion of venous access port Z45.2 8 1517 <Electronically signed by Bo Madrid MD> Date Bo Madrid MD Cosigner Signature: Date (if applicable) CC: Sara Swartz PIPE AND BOILER COVERS SUPERVISOR; Halley Khan MD 01-Jan-2018 Oncology Visit Report Result: Comments: See Note; NOTES: [facility] [address] [place] [address] OFFICE VISIT Date of Service: 01/01/18 1254 MR#: [id number] Acct: [id number] Name: GABBI ROLLE Rep #: [id number] : 1945 From: Halley Khan MD Age/Sex: [...] consider capsule study) despite oral iron supplementation (prison) . Patient was transfused with packed red [...] (Obl/Decub/A/L) Result: Comments: See Note; NOTES: [facility] Imaging Services [address] [place] [address] Special CXR (Obl/Decub/A/L) MR#: [id number] Acct: [id number] Name: GABBI ROLLE Rep #: [id number] : 1945 F 72 From: Geovanni Roper MD PCP: Sara Swartz NP Status: REG CLI Study: Special CXR (Obl/Decub/A/L) Date of Exam: 12/23/17 Exam# [id number] Ordering Dr: Carlos Nelson MD STUDY: X-RAY CHEST REASON FOR EXAM: Female, 72 years old. Dyspnea TECHNIQUE: Bilateral decubitus. COMPARISON: Radiographs of the same date.. FINDINGS: On the l eft there is a small layering pleural effusion. On the right no significant free- flowing fluid. Electronically Signed: Geovanni Roper MD at 16:00 EDT , Service support 08-26 [phone], RAD/Special CXR (Obl/Decub/A/L) CC: Sara Swartz NP; Carlos Nelson MD Plastic Parts Fabricator Trimmer: Signed 23-Dec-2017 Special CXR (Obl/Decub/A/L) Result: Comments: See Note; NOTES: [facility] Imaging Services [address] [place] [address] Special CXR (Obl/Decub/A/L) MR#: [id number] Acct: [id number] Name: GABBI ROLLE Rep #: [id number] : 1945 F 72 From: Geovanni Roper MD PCP: Sara Swartz NP Status: REG CLI Study: Special CXR (Obl/Decub/A/L) Date of Exam: 12/23/17 Exam# [id number] Ordering Dr: Carlos Nelson MD STUDY: X-RAY [...] CC: Sara Swartz NP; Carlos Nelson MD Plastic Parts Fabricator Trimmer: Signed 23-Dec-2017 Chest PA and Lateral Result: Comments: See Note; NOTES: [facility] Imaging Services [address] [place] [address] Chest PA and Lateral MR#: [id number] Acct: [id number] Name: GABBI ROLLE Rep #: [id number] : 1945 F 72 From: Geovanni Roper MD PCP: Sara Swartz NP Status: REG CLI Study: Chest PA and Lateral Date of Exam: 12/23/17 Exam# [id number] Ordering Dr: Carlos Nelson MD STUDY: X-RAY [...] , Service support , CC: Sara Swartz PIPE AND BOILER COVERS SUPERVISOR; Carlos Nelson MD Plastic Parts Fabricator Trimmer: Signed 06-Dec-2017 Oncology Visit Report Result: Comments: See Note; NOTES: [facility] Oncology [facility] [place] [address] OFFICE VISIT Date of Service: 12/05/17 1029 MR#: [id number] Acct: [id number] Name: GABBI ROLLE Rep #: [id number] : 1945 From: Halley Khan MD Age/Sex: [...] consider capsule study) despite oral iron supplementation (prison) . Patient was transfused with packed red [...] (Portable) Result: Comments: See Note; NOTES: [facility] Imaging Services [address] [place] [address] Chest 1 View (Portable) MR#: [id number] Acct: [id number] Name: GABBI ROLLE Rep #: [id number] : 1945 F 72 From: Norah Arreaga MD PCP: Sara Swartz NP Status: REG ER Study: Chest 1 View (Portable) Date of Exam: 11/29/17 Exam# [id number] Ordering Dr: Gabi Gardner MD STUDY: X-R [...] , Service support , CC: Sara Swartz PIPE AND BOILER COVERS SUPERVISOR; Gabi Gardner MD Plastic Parts Fabricator Trimmer: Signed 22-Nov-2017 12 Lead Electrocardiogram Result: Comments: See Note; NOTES: [facility] Cardiovascular Services [address] [place] [address] 12 Lead EKG 11/18/17 1440 MR#: [id number] Acct: [id number] Name: GABBI ROLLE Alexandro Saravia p #: [id number] : 1945 72 From: Niraj Raymundo MD [...] Abnormal ECG Confirmed by RIGOBERTONIRAJ ANNE MD ([id number]), food expeditor JONATHON ROLLE ([id number]) on 11/22/2017 12:57:07 PM Referred By: JOO Confirmed By:NIRAJ RAYMUNDO MD 11/22/17 1257 Date Niraj Raymundo MD CC: Sara Swartz NP; Ariane Lakhani MD Signed 18-Nov-2017 Emergency Department Summary Result: Comments: See Note; NOTES: [facility] Medical Records Department [address] [place] [address] Emergency Department Summary 11/18/17 1735 MR#: [id number] Acct: [id number] Name: GABBI ROLLE Rep #: [id number] : 1945 72 From: Ariane Lakhani MD [...] weeks to see benefit. She called her network operations technician today to see if she needed to [...] Dyspnea This note was gene rated with Flirtomatic dictation software. It may contain incorrect words, [...] your Primary Care Provider. Call [facility] ([phone]) or report to the closest Emergency Room. Call 911 if necessary. 11/18/171747 <Electronica lly signed by Ariane Lakhani MD> Date Ariane Lakhani MD Cosigner Signature (If Indicated): Date CC: Sara Swartz PIPE AND BOILER COVERS SUPERVISOR 18-Nov-2017 Discharge Instruction Result: Comments: See Note; NOTES: [facility] Medical Records Department [address] [address] Discharge Instruction 11/18/171739 MR#: [id number] Acct: [id number] Name: GABBI ROLLE Rep #: [id number] : 1945 72 From: Ariane Lakhani MD [...] your Primary Care Provider. Call [facility] ([phone]) or report to the closest Emergency Room. Call 911 if necessary. 11/18/17 1743 <Electronically signed by Ariane Lakhani MD> Date Ariane Lakhani MD Cosigner Signature (If Indicated): Date CC: Sara Swartz NP 18-Nov-2017 Chest PA and Lateral Result: Comments: See Note; NOTES: [facility] Imaging Services [address] [place] [address] Chest PA and Lateral MR#: [id number] Acct: [id number] Name: GABBI ROLLE Rep #: [id number] : 1945 F 72 From: Aaron Kenyon MD PCP: Sara Swartz NP Status: REG ER Study: Chest PA and Lateral Date of Exam: 11/18/17 Exam# [id number] Ordering Dr: Ariane Lakhani MD STUDY: X-RAY [...] , Service support , CC: Sara Swartz PIPE AND BOILER COVERS SUPERVISOR; Ariane Lakhani MD Plastic Parts Fabricator Trimmer: Signed 04-Nov-2017 Oncology Visit Report Result: Comments: See Note; NOTES: [facility] Oncology [address] [place] [address]. [place] [address] OFFICE VISIT Date of Service: 11/04/17 1252 MR#: [id number] Acct: [id number] Name: GABBI ROLLE Rep #: [id number] : 1945 From: Halley Khan MD Age/Sex: [...] with Dr. 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 Patient was transfused with packed red [...] Result: Comments: See Note; NOTES: [facility] [address] [place] [address] OFFICE VISIT Date of Service: 10/19/17 MR#: [id number] Acct: [id number] Name: GABBI ROLLE p #: [id number] : 1945 Provider: Serge DOE Age/Sex: 72/F [...] PFSH Medical History Atherosclerotic heart disease of [place] coro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 pectoris (Chronic) Chronic [...] the above. This note was generated with Flirtomatic dictation software. It may contain incorrect words, [...] Visit Report Result: Comments: See Note; NOTES: [facility] [address] [place] [address]. [address] [place] [address] OFFICE VISIT Date of Service: 09/18/17 MR#: [id number] Acct: [id number] Name: GABBI ROLLE Rep #: [id number] : 1945 Provider: DANIELE Figueredo Age/Sex: 72/F Location[place] [facility] [place] Status: Signed HPI 4 M FU: Details: GABBI ROLLE, is a 72 F who [facility]. Patient has a [...] radial Intake Visit Reasons: 4 M FU Window Maker Required: No Accompanied by: None Is patient [...] PFSH Medical History Atherosclerotic heart disease of [place] c oro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 pectoris (Chronic) [...] affect Assessment AND Plan 1. Atherosclerosis of [place] coronary artery of [place] heart without angina pectoris I25.10 [facility]: 07/30/2006; 04/10/17 ROSALIND King Patient's most [...] prior to saving. Follow Up 6 Months (TRANSCRIBING OPERATOR HEAD) Coding Level of Care Code Off vis,est,level 3 Diagnoses Atherosclerosis of [place] coronary artery of [place] heart without angina pectoris I25.10 [place] vs. transplanted heart: [place] heart Chronic atrial fibrillation I48.2 Iron deficiency anemia, unspecifie d iron deficiency anemia type D50.9 Anemia type: iron deficiency Iron deficiency anemia type: unspecified iron deficiency Other secondary pulmonary hypertension I27.29 Nonrheumatic aortic (valve) stenos is I35.0 Essential hypertension I10 Hypertension type: essential hypertension Mixed hyperlipidemia E78.2 Hyperlipidemia type: mixed hyperlipidemia Coding Level of Care Code Off vis,est,level 3 Diagno ses Atherosclerosis of [place] coronary artery of [place] heart without angina pectoris I25.10 [place] vs. transplanted heart: [place] heart Chronic atrial fibrillation I48.2 Iron deficiency anemia, unspeci fied iron deficiency anemia type D50.9 Anemia type: iron deficiency Iron deficiency anemia type: unspecified iron deficiency Other secondary pulmonary hypertension I27.29 Nonrheumatic aortic (valve) jamie nosis I35.0 Essential hypertension I10 Hypertension type: essential hypertension Mixed hyperlipidemia E78.2 Hyperlipidemia type: mixed hyperlipidemia 09/18/17 1515 <Electronically signed by Mendez Figueredo PIPE AND BOILER COVERS SUPERVISOR-C> Date Lazaro GARCIAC 09/20/17 1531<Electronically signed by Niraj Raymundo MD> Cosigner Signature: Date ____ (if applicable) Niraj Raymundo MD CC: Sara Swartz NP 06-Aug-2017 Chest PA and Lateral Result: Comments: See Note; NOTES: [facility] Imaging Services [address] [place] [address] Chest PA and Lateral MR#: [id number] Acct: [id number] Name: GABBI ROLLE Rep #: [id number] : 1945 F 72 From: Ariane Crook MD PCP: Sara Swartz NP Status: REG CLI Study: Chest PA and Lateral Date of Exam: 08/06/17 Exam# [id number] Ordering Dr: Kaykay Layne PIPE AND BOILER COVERS SUPERVISOR-Cassie STUDY: X-RAY C HEST REASON FOR EXAM: [...] Crook MD at 17:23 EST Tel Direct: [phone], Service support 08-26 [phone], CC: Sara Swartz NP; PIPE AND BOILER COVERS SUPERVISOR-C Kaykay Layne Plastic Parts Fabricator Trimmer: Signed 30-Jul-2017 Breast Limited Unilateral Result: Comments: See Note; NOTES: [facility] Imaging Services [address] [place] [address] Breast Limited Unilateral MR#: [id number] Acct: [id number] Name: GABBI ROLLE Rep #: [id number] : 1945 F 72 From: Irvin Cho MD PCP: Sara Swartz NP Status: REG CLI Study: Breast Limited Unilateral Date of Exam: 07/30/17 Exam# [id number] Ordering Dr: Sara Swartz STUDY: UL TRASOUND [...] Irvin Cho MD at 12:42 EST Tel [phone], Servic e support , CC: Sara Swartz NP Plastic Parts Fabricator Trimmer: Signed 23-Jul-2017 SCREENING MAMM (CAD), BILAT Result: Comments: See Note; NOTES: [facility] Imaging Services [address] [facility] [place] [address] SCREENING MAMM (CAD), BILAT MR#: [id number] Acct: [id number] Name: GABBI ROLLE Rep #: [id number] : 1945 F 72 From: Irvin Cho MD PCP: Sara Swartz NP Status: REG CLI Study: SCREENING MAMM (CAD), BILAT Date of Exam: 07/23/17 Exam# [id number] Ordering Dr: Sara Swartz MAMMO GRAPHY - [...] delay biopsy of a clinically suspicious abnormality. [id number] El ectronically Signed: Irvin Cho MD at 9:57 EST Tel [phone], Service support , CC: Sara Swartz NP Plastic Parts Fabricator Trimmer: Signed 10-May-2017 History and Physical Exam Result: Comments: See Note; NOTES: [facility] Medical Records Department [address] [facility] [address] History and Physical 05/10/17 1126 MR#: [id number] Acct: [id number] Name: Alvina ROLLE Rep #: [id number] : 1945 71 From: Halley Khan MD [...] iron but tends to recur. Power of Local Announcer: Yes Living Will: Yes Health History: Past [...] Lateral Result: Comments: See Note; NOTES: [facility] Imaging Services [address] [facility] [place] [address] Chest PA and Lateral MR#: [id number] Acct: [id number] Name: GABBI ROLLE Rep #: [id number] : 1945 F 71 From: Ariane Crook MD PCP: Sara Swartz Status: REG CLI Study: Chest PA and Lateral Date of Exam: 03/26/17 Exam# [id number] Ordering Dr: Niraj Raymundo MD STUDY: X-RAY [...] Ariane Crook MD at 20:49 EDT Tel [phone], Service support , CC: Sara Swartz; Niraj Raymundo MD Plastic Parts Fabricator Trimmer: Signed 05-Mar-2017 Venous Duplex Lower Extremity Result: Comments: See Note; NOTES: [facility] Cardiovascular Services [address] [place] [address] Venous Duplex US, Unilateral 03/05/17 1427 MR#: [id number] Acct: [id number] Name: GABBI MCGOVERN Rep #: [id number] : 1945 71 From: Francisco Ji MD Attending Dr: Heron Hobbs Status: REG CLI Ordering Dr: Heron Hobbs MD Date: 03/05/17 Location: [facility] Sex: F C Admitted: Reason [...] Date Dictated: 03/05/17 1427 Date Transcribed: 03/05/171601 Plastic Parts Fabricator Trimmer: Signed 04-Feb-2017 Kidney and Bladder Result: Comments: See Note; NOTES: [facility] Imaging Services [address] [place] [address] Verdana 4d Kidney and Bladder MR#: [id number] Acct: [id number] Name: GABBI ROLLE Rep # : [id number] : 1945 F 71 From: Irvin Galarza DO PCP: Sara Swartz Status: REG CLI Study: Kidney and Bladder Date of Exam: 02/04/17 Exam# [id number] Ordering Dr: Natalia Mccurdy DO STUDY: RENAL ULTRAS OUND - COMPLETE REASON FOR EXAM: Female, 71 years old. Chronic kidney disease stage III TECHNIQUE: Ultrasound evaluation of the kidneys was performed with real-time and static ruggiero-scale imaging. MotionDSP [place]: None. FINDINGS: RIGHT KIDNEY: Normal location [...] Irvin Galarza DO at 22:55 EDT Tel [phone], Service support , CC: Sara Swartz; Natalia Mccurdy DO Plastic Parts Fabricator Trimmer: Signed 09-Dec-2016 Emergency Department Summary Result: Comments: See Note; NOTES: [facility] Medical Records Department [address] [place] [address] Emergency Department Summary MR#: [id number] Acct: [id number] Name: FINA ROLLE Rep #: [id number] : 1945 71 From: Maral Palacios MD [...] Dehydration. Maral Palacios MD T: NTS JOB: [id number] 12/09/16 0728 <Electronically signed by Maral Palacios MD> Date Maral Palacios MD Cosigner Signature (If Indicated ): Date CC: Sara Nixonyany Date Dictated: 12/09/1604 Date Transcribed: 12/09/16703 Plastic Parts Fabricator Trimmer: Signed 09-Dec-2016 Chest PA and Lateral Result: Comments: See Note; NOTES: [facility] Imaging Services [address] [place] [address] Verdana 4d Chest PA and Lateral MR#: [id number] Acct: [id number] Name: GABBI ROLLE Rep #: [id number] : 1945 F 71 From: Aaron Kenyon MD PCP: Sara Swartz Status: REG ER Study: Chest PA and Lateral Date of Exam: 12/09/16 Exam# [id number] Ordering Dr: Maral Palacios MD STUDY: X-RAY [...] Tel , Service support , Fa x [phone] CC: Sara Swartz; Maral Palacios MD Plastic Parts Fabricator Trimmer: Signed 10-Sep-2016 Stress Test Echo w/o Contrast Result: Comments: See Note; NOTES: [facility] Cardiovascular Services [address] [place] [address] Verdana 4d Stress Test Echo w/o Contrast MR#: [id number] Acct: [id number] Name: GABBI WAY Rep #: [id number] : 1945 71 From: Niraj Raymundo MD [...] Dictated: 09/10/16 1258 Date Transcribed: 09/10/16 1523 Plastic Parts Fabricator Trimmer: Signed 27-Jul-2016 Bilat Scrn Digital AND CAD Result: Comments: See Note; NOTES: [facility] Imaging Services [address] [place] [address] Verdana 4d Bilat Scrn Digital AND CAD MR#: [id number] Acct: [id number] Name: GABBI ROLLE Rep #: [id number] : 1945 F 71 From: Irvin Cho MD PCP: Jacinto Sheehan Status: REG CLI Study: Bilat Scrn Digital AND CAD Date of Exam: 07/27/16 Exam# [id number] Ordering Dr: Jacinto Sheehan MAMMOGRAPHY - BILATERAL [...] delay biopsy of a clinically suspicious abnormality. [id number] Electronically Signed: Irvin Cho MD at 10:02 EST Tel [phone], Service support [phone], CC: Jacinto Sheehan Plastic Parts Fabricator Trimmer: Signed 11-Apr-2016 Dexa Bone Density/Append Skel Result: Comments: See Note; NOTES: [facility] Imaging Services [address] [place] [address] Ajaydamichael 4d Dexa Bone Density/Append Skel MR#: [id number] Acct: [id number] Name: SHYAM ROLLE Rep #: [id number] : 1945 F 70 From: Irvin Cho MD PCP: Jacinto Sheehan Status: REG CLI Study: Dexa Bone Density/Append Skel Date of Exam: 04/11/16 Exam# [id number] Ordering Dr: Jacinto Sheehan STUDY: DUAL ENERGY [...] Irvin Cho MD at 11:29 EDT Tel [phone], Ser vice support [phone], CC: Jacinto Sheehan Plastic Parts Fabricator Trimmer: Signed 26-Dec-2015 Liver Result: Comments: See Note; NOTES: [facility] Imaging Services [address] [place] [address] Verdana 4d Liver MR#: [id number] Acct: [id number] Name: GABBI ROLLE Rep # : [id number] : 1945 F 70 From: Irvin Cho MD PCP: Brittany Abraham DO Status: REG CLI Study: Liver Date of Exam: 12/26/15 Exam# [id number] Ordering Dr: Brittany Abraham DO STUDY: ABDOMINAL [...] Irvin Cho MD at 12:58 EDT Tel [phone], Service support [phone], CC: Brittany Abraham DO Plastic Parts Fabricator Trimmer: Signed 25-Jul-2015 Bilat Scrn Digital AND CAD Result: Comments: See Note; NOTES: [facility] Imaging Services [address] [place] [address] Verdana 4d Bilat Scrn Digital AND CAD MR#: [id number] Acct: [id number] Name: GABBI ROLLE Rep #: [id number] : 1945 F 70 From: Irvin Cho MD PCP: Brittany Abraham DO Status: REG CLI Study: Bilat Scrn Digital AND CAD Date of Exam: 07/25/15 Exam# [id number] Therese trujillo Dr: Brittany Abraham DO MAMMOGRAPHY [...] delay biopsy of a clinically suspicious abnormality. [id number] Electronically Signed: Irvin Cho MD at 8:59 EST Tel [phone], Service support [phone], CC: Brittany Abraham DO Plastic Parts Fabricator Trimmer: Signed 22-Jun-2015 Carotid Duplex Ultrasound Result: Comments: See Note; NOTES: [facility] Cardiovascular Services [address] [place] [address] Carotid Duplex Ultrasound 06/17/15 0851 MR#: [id number] Acct: [id number] Name: GABBI ROLLE Rep #: [id number] : 1945 70 From: Sharath Mortensen MD [...] the left vertebral artery. Procedure Carotid Duplex 94835. The exam was diagnostic. The study was [...] Date Dictated: 06/17/15 0851 Date Transcribed: 06/22/1540 Plastic Parts Fabricator Trimmer: Signed 24-Mar-2015 Pulmonary Function Report Comp Result: Comments: See Note; NOTES: [facility] Pulmonary Services/Neurology [address] [place] [address] Pulmonary Function Test (Comp) MR#: [id number] Acct: [id number] Name: GABBI WAY Rep #: [id number] : 1945 69 From: Pako Andre MD [...] edema. PAKO ANDRE MD T: NTS JOB: [id number] SPIROMETRY Ref ULN/LLN Pre Pre Post Post [...] Date Dictated: 1554 Date Transcribed: 03/22/15 155 Plastic Parts Fabricator Trimmer: Signed 11-Mar-2015 Echocardiogram Complete Result: Comments: See Note; NOTES: [facility] Cardiovascular Services [address] [place] [address] Echo Complete 03/11/15 1108 MR#: [id number] Acct: [id number] Name: Alvina ROLLE Rep #: [id number] : 1945 69 From: Niraj Raymundo MD Attending Dr: Niraj Raymundo MD Status: REG CLI Ordering Dr: Niraj Raymundo MD Date: 03/11/15 Location: [facility] Sex: F C Admitted: Rita fernandez This [...] Dictated: 03/11/15 1108 Date Transcribed: 03/11/15 1247 Plastic Parts Fabricator Trimmer: Signed 23-Jul-2014 Suha Terry Digital & CAD Result: Comments: See Note; NOTES: [facility] Imaging Services [address] [place] [address] Breast Imaging Report MR#: [id number] Acct: [id number] Name: GABBI ROLLE Rep #: [id number] : 1945 F 69 From: Irvin Cho MD PCP: Brittany Abraham DO Status: REG CLI Exam# [id number] Ordering Dr: Brittany Abraham DO MAMMOGRAPHY - [...] small lymph nodes. CC: Brittany Abraham DO Plastic Parts Fabricator Trimmer: Signed 29-Jun-2014 Knee 4 or More Views Result: Comments: See Note; NOTES: [facility] Imaging Services [address] [place] [address] Radiology Report MR#: [id number] Acct: [id number] Name: GABBI ROLLE Rep #: [id number] : 1945 F 69 From: Po Segovia DO PCP: Brittany Abraham DO Status: REG CLI Study: Knee 4 or More Views Date of Exam: 06/29/14 Exam# [id number] Ordering Dr: Brittany Abraham DO STUDY: X-RAY [...] at 6:27 EST Tel , Service support [phone], CC: Brittany Abraham DO Plastic Parts Fabricator Trimmer: Signed 29-Jun-2014 Knee 4 or More Views Result: Comments: See Note; NOTES: [facility] Imaging Services [address] [place] [address] Radiology Report MR#: [id number] Acct: [id number] Name: GABBI ROLLE Rep #: [id number] : 1945 F 69 From: Po Segovia DO PCP: Brittany Abraham DO Status: REG CLI Study: Knee 4 or More Views Date of Exam: 06/29/14 Exam# [id number] Ordering Dr: Brittany Abraham DO STUDY: X-RAY [...] 6:35 EST Tel , Service [place] pport [phone], CC: Brittany Abraham DO Plastic Parts Fabricator Trimmer: Signed 08-Feb-2014 OT Discharge Summary Result: Comments: See Note; NOTES: [facility] [address] [place] [address]. [address] [place] [address] Fax REHABILITATION SERVIC ES DISCHARGE SUMMARY MR#: [id number] Acct: [id number] Name: GABBI ROLLE Rep #: [id number] : 1945 68 From: Flavia Metz Referring [...] was to receive compression g arments through [facility]. The order was faxed over to them for the compression garments. However, unaware if the patient received those garments. At this time, again the patient was to return fo r followup visits to ensure proper fitting of compression hose. At this time, she has not done so and is discharged. Flavia Metz, OTR/L T: NTS JOB: [id number] <Electronically signed by Flavia Metz > 02/08/14 1513 CC: Signed 22-Dec-2013 Initial Evaluation - OT Result: Comments: See Note; NOTES: [facility] [address] [place] [address] Fax [facility] MR#: [id number] Acct: [id number] Name: GABBI ROLLE Rep #: [id number] : 1945 68 From: Flavia Metz Referring DrYuli: Brittany Abraham DO Status: DIS RCR Insurance: M [employer] PART A B Eval Date: JAY GADSDEN DATE OF SERVICE: 12/15/2013 PHYSICIAN: Brittany Abraham [...] understanding. Flavia Metz OTR/L T: NTS JOB: [id number] <Electr onically signed by Flavia Metz > 12/22/13 1311 CC: Signed For Medicare only, by signing this I certify the plan of care. Physicians Signature Date 14-Dec-2013 Liver Result: Comments: See Note; NOTES: [facility] Imaging Services [address] [place] [address] Ultrasound Report MR#: [id number] Acct: [id number] Name: GABBI ROLLE Rep #: [id number] : 1945 F 68 From: Irvin Cho MD PCP: Brittany Abraham DO Status: REG CLI Study: Liver Date of Exam: 12/14/13 Exam# [id number] Ordering Dr: Brittany Abraham DO STUDY: ABDOMINAL [...] Irvin Cho MD at 10:02 EDT Tel [phone], Service support [phone], CC: Brittany Abraham DO Plastic Parts Fabricator Trimmer: Signed 18-Nov-2013 Chest PA and Lateral Result: Comments: See Note; NOTES: [facility] Imaging Services [address] [place] [address] Radiology Report MR#: [id number] Acct: [id number] Name: GABBI ROLLE Rep #: [id number] : 1945 F 68 From: Irvin Cho MD PCP: Brittany Abraham DO Status: REG CLI Study: Chest PA and Lateral Date of Exam: 11/18/13 Exam# [id number] Ordering Dr: Sara Swartz STUDY: X-RAY CHEST [...] M.D. at 15:41 EDT , Service support [phone], CC: Sara Swartz; Brittany Abraham DO Plastic Parts Fabricator Trimmer: Signed 03-Nov-2013 Chest PA and Lateral Result: Comments: See Note; NOTES: [facility] Imaging Services [address] [place] [address] Radiology Report MR#: [id number] Acct: [id number] Name: GABBI ROLLE Rep #: [id number] : 1945 F 68 From: Irvin Cho MD PCP: Brittany Abraham DO Status: REG CLI Study: Chest PA and Lateral Date of Exam: 11/03/13 Exam# [id number] Ordering Dr: Brittany Abraham DO STUDY: X- [...] M.D. at 11:18 EDT , Service support [phone], Fax CC: Brittany Abraham DO Plastic Parts Fabricator Trimmer: Signed 30-Jul-2013 Suha Terry [employer] Result: Comments: See Note; NOTES: [facility] Imaging Services [address] [place] [address] Breast Imaging Report MR#: [id number] Acct: [id number] Name: GABBI ROLLE Rep #: [id number] : 1945 F 68 From: Irvin Cho MD PCP: Brittany Abraham DO Status: REG CLI Exam# [id number] Ordering Dr: Brittany Abraham DO MAMMOGRAPHY - [...] at 8:11 EST Tel , Service support [phone], CC: Brittany Abraham DO [employer] Fabricator Trimmer: Signed 30-Jul-2013 Dexa Bone Density Study (HP) Result: Comments: See Note; NOTES: [facility] Imaging Services [address] [place] [address] Bone Density Report MR#: [id number] Acct: [id number] Name: GABBI ROLLE Rep #: : 1945 F 68 From: Irvin Cho MD PCP: Brittany Abraham DO Status: REG CLI Study: Dexa Bone Density Study (HP) Date of Exam: 07/30/13 Exam# [id number] Ordering Dr: Brittany Abraham DO STUDY: DUAL [...] M.D. at 9:58 EST , Service support [phone], CC: Brittany Abraham DO [employer] Fabricator Trimmer: Signed Immunization Name Dates Details Influenza (3 [...] Height 0 in Head Circumference 0.00 cm 73-Rcg-536377:15 Temperature 97.6 f Comments: Method: Oral Pulse [...] Description Value Details :34 HgA1C , Office (26610) HgA1C , Office 5.4 % (Normal) Range: 4.6 - 7.1 :34 Blood Glucose , Office (12136) Blood Glucose , Office 145 (Normal) 77-Slw-473394:14 Basic Metabolic Profile (BMP) Comments: [facility] [address] [place], [address] GAP 8 (Normal) Range: 5-15 CO2 28.0 [...] A.D.A. criteria.Please note revised GLUCOSE reference range nrhqbynev91/02/2018. 83-Qel-277754:14 PTHIN 127.7 pg/mL (Abnormal) Comments: [facility] [address] [place], [address] Range: 18.4-80.1 77-Zux-331517:47 Basic Metabolic Profile (BMP) Comments: [facility] [address] [place], [address] GAP 7 (Normal) Range: 5-15 CO2 25.0 [...] A.D.A. criteria.Please note revised GLUCOSE reference range abegskvzk83/02/2018. 12-Mvn-436740:47 Renal Profile Comments: [facility] [address] [place], [address] CO2 25.0 mmol/L (Normal) Range: 21.0-32.0 CL [...] A.D.A. criteria.Please note revised GLUCOSE reference range vuspvqhth11/02/2018. 49-Ffi-576145:46 CBC W/Diff, Automated Comments: Reason for Laboratory Test .[facility] [address] [place], [address] Absolute Lymph 0.69 {X10_3/ul} (Abnormal) Range: 0.83-4.51 [...] 4.2-5.4 WBC 4.6 K/mm3 (Normal) Range: 4.4-11.0 33-Mwx-130345:46 Ferritin Comments: Reason for Laboratory Test .[facility] [address] [place], [place], [address] FERRITIN 55 ng/mL (Normal) Range: 8-252 74-Iex-414269:46 Iron+Iron Binding Capacity Comments: Reason for Laboratory Test .[facility] [address] [place], [address] IRON SATURATION 13.4 % (Abnormal) Range: 15.0-55.0 IRON 47 ug/dL (Abnormal) Range: 50-170 TIBC 350 ug/dL (Normal) Range: 250-450 99-Vep-506675:45 Partial Thromboplast Time Comments: [place] [address] [place], [address] PTT 44.5 s (Abnormal) Range: 24.1-36.2 13-Oyc-226782:45 Prothrombin Time w/INR Comments: [place] [address] [place], [address] INR 1.2 (Normal) PROTIME 15.0 s (Abnormal) Range: 11.7-14.9 1-Pml-984491:16 Renal Profile Comments: [place] [address] [place], [address] CO2 24.0 mmol/L (Normal) Range: [...] A.D.A. criteria.Please note revised GLUCOSE reference range ivdlghzlb24/02/2018. 4-Wyv-528347:15 CBC W/Diff, Automated Comments: Reason for Laboratory Test .[facility] [address] [place], [place], [address] Absolute Lymph 0.91 {X10_3/ul} (Normal) Range: 0.83-4.51 [...] 4.2-5.4 WBC 4.2 K/mm3 (Abnormal) Range: 4.4-11.0 7-Mqf-592405:15 Ferritin Comments: Reason for Laboratory Test .[facility] [address]qe[address] [place], [place], [address] FERRITIN 44 ng/mL (Normal) Range: 8-252 3-Kab-657517:15 Iron+Iron Binding Capacity Comments: Reason for Laboratory Test .[facility] [address] [place], [place], [phone] IRON SATURATION 11.8 % (Abnormal) Range: 15.0-55.0 IRON 42 ug/dL (Abnormal) Range: 50-170 TIBC 355 ug/dL (Normal) Range: 250-450 87-Msl-629693:22 CBC W/Diff, Automated Comments: Reason for Laboratory Test DRAW BLOODBANK TUBE FOR [facility] [address]yn[address] [place], [place], [address] Absolute Lymph 0.76 {X10_3/ul} (Abnormal) Range: 0.83-4.51 [...] 4.2-5.4 WBC 5.7 K/mm3 (Normal) Range: 4.4-11.0 6-Agw-657469:39 Renal Profile Comments: [facility] [address] [place], [place], [address] CO2 24.0 mmol/L (Normal) Range: 21.0-32.0 CL [...] A.D.A. criteria.Please note revised GLUCOSE reference range zdraizsgp60/02/2018. 5-Trg-207869:04 CBC W/Diff, Automated Comments: Reason for Laboratory Test .[facility] [address] [place], [place], [address] Absolute Lymph 0.85 {X10_3/ul} (Normal) Range: 0.83-4.51 [...] 4.2-5.4 WBC 5.4 K/mm3 (Normal) Range: 4.4-11.0 4-Qks-986185:04 Ferritin Comments: Reason for Laboratory Test .[facility] [address] [place], [place], [address] FERRITIN 135 ng/mL (Normal) Range: 8-252 2-Dhc-662644:04 Iron+Iron Binding Capacity Comments: Reason for Laboratory Test .[facility] [address]sx[address]jc[address] [place], [place], [address] IRON SATURATION 31.9 % (Normal) Range: 15.0-55.0 IRON 117 ug/dL (Normal) Range: 50-170 TIBC 367 ug/dL (Normal) Range: 250-450 56-Dyv-938199:26 CBC W/Diff, Automated Comments: [facility] [address]obb[address] [place], [place], [address] Absolute Lymph 0.86 {X10_3/ul} (Normal) Range: 0.83-4.51 [...] 4.2-5.4 WBC 5.8 K/mm3 (Normal) Range: 4.4-11.0 72-Zbj-751658:26 Comprehensive Metabolic Profil Comments: [facility] [address] [place], [place], [address] GAP 7 (Normal) Range: 5-15 CO2 27.0 [...] A.D.A. criteria.Please note revised GLUCOSE reference range yglmxjkxa86/02/2018. 60-Srf-408057:36 Ferritin Comments: Reason for Laboratory Test .[facility] [address]wfcr[address] [place], [place], [address] FERRITIN 54 ng/mL (Normal) Range: 8-252 10-Htx-521399:36 Iron+Iron Binding Capacity Comments: Reason for Laboratory Test .[facility] [address]ynu[address] [place], [place], [address] IRON SATURATION 12.7 % (Abnormal) Range: 15.0-55.0 IRON 42 ug/dL (Abnormal) Range: 50-170 TIBC 331 ug/dL (Normal) Range: 250-450 35-Vai-146572:21 CBC-Complete Blood Cnt No Diff Comments: [facility] [address] [place], [place], [address] MPV 10.8 fL (Normal) Range: 6.2-12.0 PLT [...] 4.2-5.4 WBC 6.2 K/mm3 (Normal) Range: 4.4-11.0 8-Nsc-368200:15 CBC W/Diff, Automated Comments: [address] [place], [place], [address] Absolute Lymph 0.79 {X10_3/ul} (Abnormal) Range: 0.83-4.51 [...] 4.2-5.4 WBC 7.0 K/mm3 (Normal) Range: 4.4-11.0 1-Uvb-875718:15 Comprehensive Metabolic Profil Comments: [facility] [address]uf[address] [place], [place], [address] GAP 8 (Normal) Range: 5-15 CO2 21.0 [...] A.D.A. criteria.Please note revised GLUCOSE reference range omcfzsthu33/02/2018. 8-Bgv-218365:15 Lactic Acid Comments: Yes/No query for Sepsis Lactate Rule [facility] [address] [place], [place], [address] LACTIC ACID 2.1 mmol/L (Abnormal) Range: 0.4-2.0 Comments: Critical Result(s) Called at: 10:59:09 02/23/2018 by: Juve House RN 6-Idd-318799:15 Partial Thromboplast Time Comments: [address] [place], [address] PTT 36.8 s (Abnormal) Range: 24.1-36.2 9-Azz-935647:15 Prothrombin Time w/INR Comments: [address] [place], [place], [address] INR 1.2 (Normal) PROTIME 15.2 s (Abnormal) Range: 11.7-14.9 1-Cak-850450:15 Troponin-I Comments: [address] [place], [place], [address] TROPONIN-I < 0.015 ng/mL (Normal) Comments: TROPONIN-I EXPECTED VALUES <0.045 Negative 0.045 - 0.590 Consistent with Cardiac Damage > OR = 0.600 Critical Value Not every elevated troponin is indicative of PR. T hesevalues should be used with clinical judgement in examiningthe patient's clinical picture for diagnosis. To establisha diagnosis of PR versus myocardial injury, there must be ademonstrated rise and/ or fall in the troponin values, inaddition to ischemic symptoms, EKG changes, new regionalwall motion abnormality, and/or angiographical evidence. PLEASE NOTE: REFERENCE RANGES EDITED 12/30/1717-Feb-20185-Olj-578305:10 CBC W/Diff, Automated Comments: CMP, CBCD, PT FOR DR BOOKER [facility] [address]niwd[address] [place], [place], [address] Absolute Lymph 0.84 {X10_3/ul} (Normal) Range: 0.83-4.51 [...] 4.2-5.4 WBC 6.6 K/mm3 (Normal) Range: 4.4-11.0 9-Egm-984199:10 Comprehensive Metabolic Profil Comments: CMP, CBCD, PT FOR DR BOOKER ARE FOR DR Sanchesluis [facility] [address] [place], [address] GAP 8 (Normal) Range: 5-15 CO2 25.0 [...] A.D.A. criteria.Please note revised GLUCOSE reference range lvofoozny00/02/2018. 5-Hqt-325294:10 Ferritin Comments: CMP, CBCD, PT FOR DR BOOKER [facility] [address]vou[address] [place], [address] FERRITIN 60 ng/mL (Normal) Range: 8-252 1-Xzn-761314:10 Iron+Iron Binding Capacity Comments: CMP, CBCD, PT FOR DR BOOKER ARE FOR [facility]ILVIOKind[facility] [address]rnfy[address] [place], [address] IRON SATURATION 13.0 % (Abnormal) Range: 15.0-55.0 IRON 44 ug/dL (Abnormal) Range: 50-170 TIBC 339 ug/dL (Normal) Range: 250-450 7-Fsb-464164:10 Prothrombin Time w/INR Comments: CMP, CBCD, PT FOR DR BOOKER ARE FOR [facility]IL[facility]IOKind[facility] [address]hz[address] [place], [address] INR 1.2 (Normal) PROTIME 15.3 s (Abnormal) Range: 11.7-14.9 05-Qyc-941847:25 Basic Metabolic Profile (BMP) Comments: [facility] [address], [address] GAP 9 (Normal) Range: 5-15 CO2 [...] A.D.A. criteria.Please note revised GLUCOSE reference range bejbraswh22/02/2018. 30-Fdj-015597:25 CBC W/Diff, Automated Comments: [facility] [address] [place], [address] PATH REV Reviewed (Normal) Comments: Severe Macrocytic [...] 4.2-5.4 WBC 7.5 K/mm3 (Normal) Range: 4.4-11.0 62-Zfd-013459:25 Prothrombin Time w/INR Comments: [facility] [address] [place], [place], [address] INR 3.7 (Abnormal) Comments: CRITICAL VALUE VERIFIED. CALLED TO LELE DILL02/04/18 1156 Billie Hays.RESULTS READ BACK BY SAME . PROTIME 37.0 s (Abnormal) Range: 11.7-14.9 93-Czk-816752:26 Basic Metabolic Profile (BMP) Comments: Send Results To: Gerry Swartz for Laboratory Test CKD, hypokalemiaWMagruder Hospital [address]wrplmrde[address] [place], [place], [address] GAP 8 (Normal) Range: 5-15 CO2 28.0 [...] criteria.Please note revised GLUCOSE reference range /02/2018. 49-Snu-246361:25 CBC W/Diff, Automated Comments: Reason for Laboratory Test .[facility] [address] [place], [place], [address] Absolute Lymph 1.02 {X10_3/ul} (Normal) Range: 0.83-4.51 [...] :25 Ferritin Comments: Reason for Laboratory Test .[facility] [address] [place], [place], [address] FERRITIN 109 ng/mL (Normal) Range: 8-252 11-Zfe-987760:25 Iron+Iron Binding Capacity Comments: Reason for Laboratory Test .[facility] [address]usc[address] [place], [address] IRON SATURATION 26.7 % (Normal) Range: 15.0-55.0 IRON 92 ug/dL (Normal) Range: 50-170 TIBC 345 ug/dL (Normal) Range: 250-450 3-Cdw-754722:19 HgA1C , Office (11419) HgA1C , Office 5.1 % (Normal) Range: 4.6 - 7.1 1-Vgo-864538:18 Blood Glucose , Office (31251) Blood Glucose , Office 124 (Normal) 21-Jan-20180:00 Fluid/Washing See Note (Normal) Comments: [facility] [address] [place], [place], [address] Comments: Patient: GABBI ROLLE : 1945 (72/F) Acct Num: [id number] Phys: Leslie BALDWIN,Carlos Unit Num: [id number] Loc: US Specimen: [id number] Received: 01/24/18846 Spec Type: Flu id TISSUES TISSUES: THORACIC FLUID CYTOLOGY GROSS Received is 695 ml of laquita cloudy fluid labeled with the patient's name and DOBand designated per the requisition as t horacentesis. Submitted for cytology preparation including cell block. / 01/23/18 TC:5 CPT: 65290, 33998 CYTOLOGY STUDY Slides are reviewed. The specimen [...] Comments: RESULT(S) PREVIOUSLY REPORTED ON MANUAL REQUISITION DURINGDOWNTIME.[facility] [address] [place], [place], [address] PTT 42.2 s (Abnormal) Range: 24.1-36.2 20-Jan-20189:30 Prothrombin Time w/INR Comments: RESULT(S) PREVIOUSLY REPORTED ON MANUAL REQUISITION DURINGDOWNTIME.[facility] [address] [place], [place], [address] INR 1.3 (Normal) PROTIME 16.2 s (Abnormal) Range: 11.7-14.9 00-Hgt-287560:55 Basic Metabolic Profile (BMP) Comments: [facility] [address] [place], [address] GAP 9 (Normal) Range: 5-15 [...] A.D.A. criteria.Please note revised GLUCOSE reference range ifmjnbqxb74/02/2018. 38-Wfo-694235:55 BNP,B-Type NATRIURETIC PEPTIDE Comments: [facility] [address] [place], [place], [address] B-TYPE MARY JO PEP 208.1 pg/mL (Abnormal) Range: 0-100 52-Gwr-861336:55 CBC W/Diff, Automated Comments: [facility] [address]vi[address] [place], [address] Absolute Lymph 0.56 {X10_3/ul} (Abnormal) [...] Range: 4.4-11.0 :44 Protime w/INR Fingerstick Comments: [facility] LaboratoryPoint [facility] Zziu[address] [place] [address] INR ISTAT 1.20 (Normal) Comments: Critical Value > 3.5 PROTIME ISTAT 13.7 {SEC} (Normal) Range: 11.9-14.4 Comments: Reference Range 11.9 - 14.4 :43 Bedside Glucose Comments: [facility] Laboratory[facility] [address] [place] [address] BEDSIDE GLU 147 mg/dL (Abnormal) Range: 70-110 Comments: MANAGEMENT OF PATIENT CARE PER NURSING PROTOCOL 94-Nyq-110959:01 CBC W/Diff, Automated Comments: Reason for Laboratory Test .[facility] [address] [place], [address] Absolute Lymph 0.80 {X10_3/ul} (Abnormal) Range: [...] 4.2-5.4 WBC 7.1 K/mm3 (Normal) Range: 4.4-11.0 80-Api-253870:01 Comprehensive Metabolic Profil Comments: Reason for Laboratory Test .[facility] [address] [place], [place], [address] GAP 6 (Normal) Range: 5-15 CO2 25.0 [...] criteria.Please note revised GLUCOSE reference range /02/2018. 35-Nlx-126734:01 Erythropoietin Comments: Reason for Laboratory Test .[facility] (refer to report for specific site)refer to report for address and phone number [facility] [phone] m[iU]/mL (Abnormal) Range: 2.6-18.5 Comments: Mixpanelel DxI 800 Immunoassay SystemPerformed at: - Lab[address] [id number] Director: Heron Almonte PhD, Phone: [phone] 67-Elk-432859:01 Ferritin Comments: Reason for Laboratory Test .[facility] [address] [place], [place], [address] FERRITIN 69 ng/mL (Normal) Range: 8-252 53-Myw-910491:01 Iron+Iron Binding Capacity Comments: Reason for Laboratory Test .[facility] [address] [place], [place], [address] IRON SATURATION 19.7 % (Normal) Range: 15.0-55.0 IRON 77 ug/dL (Normal) Range: 50-170 TIBC 391 ug/dL (Normal) Range: 250-450 63-Yqn-509026:06 Metabolic Panel, Comprehensive Comments: send to Dr. Mccurdy; PATIENT NOT FASTINGPERFORMED BY: [facility] Fvfjoq8238 [facility] [id number] (40882) ALT (SGPT) 18 [iU]/L (Normal) Range: 0-32 [...] 8-27 Glucose 114 mg/dL (Abnormal) Range: 65-99 21-Owi-819105:06 TSH (THYROID STIMULATING Comments: send results to Dr. Bowers; PATIENT NOT FASTINGPERFORMED BY: [facility] Qmglku8032 [facility] [id number] HORMONE) (20148) TSH 3.420 {uIU/mL} (Normal) Range: 0.450-4.500 36-Dso-614218:09 CBC W/Diff, Automated Comments: Reason for Laboratory Test .[facility] [address]xe[address] [place], [place], [address] SMEAR COMMENT (Normal) Comments: SLIDE SCANNED - [...] 4.2-5.4 WBC 6.9 K/mm3 (Normal) Range: 4.4-11.0 16-Her-838801:09 Erythropoietin Comments: Reason for Laboratory Test .[facility] (refer to report for specific site)refer to report for address and phone number ERYTHROP [phone] 51.6 m[iU]/mL (Abnormal) Range: 2.6-18.5 Comments: Spun[employer] DxI 800 Immunoassay SystemPerformed at: [facility] MobiscopeCo[address] [id number] Director: Heron Almonte PhD, Phone: [phone] 74-Mth-163496:09 Ferritin Comments: Reason for Laboratory Test .[facility] [address] [place], [place], [address] FERRITIN 43 ng/mL (Normal) Range: 8-252 55-Vvm-956527:09 Iron+Iron Binding Capacity Comments: Reason for Laboratory Test .[facility] [address] [place], [place], [address] IRON SATURATION 10.4 % (Abnormal) Range: 15.0-55.0 IRON 56 ug/dL (Normal) Range: 50-170 Comments: Slight Hemolysis, Result may be falsely increased. TIBC 536 ug/dL (Abnormal) Range: 250-450 89-Yjz-370424:09 Retic Panel Comments: Reason for Laboratory Test .[facility] [address] [place], [place], [address] IPF 3.8 % (Normal) Range: 1.0-7.9 Comments: [...] 3.00-15.90 RETIC 5.76 % (Abnormal) Range: 0.5-1.5 22-Pkr-965963:55 Basic Metabolic Profile (BMP) Comments: 'TROP' Serial specimen #1, #2, #3, or #4: [facility] [address]bkzlk[address] [place], [place], [address] GAP 9 (Normal) Range: 5-15 CO2 23.0 [...] A.D.A. criteria.Please note revised GLUCOSE reference range etgyweusi55/02/2018. 43-Gik-833019:55 BNP,B-Type NATRIURETIC PEPTIDE Comments: [facility] [address]voq[address] [place], [address] B-TYPE MARY JO PEP 217.5 pg/mL (Abnormal) Range: 0-100 48-Zbu-747759:55 CBC W/Diff, Automated Comments: [facility] [address] [place], [address] MACROCYTE 1+ (Normal) POLYCHROMASIA 1+ [...] Range: 4.4-11.0 :55 Prothrombin Time w/INR Comments: [facility] [address] [place], [place], [address] INR 2.4 (Normal) PROTIME 26.4 s (Abnormal) Range: 11.7-14.9 32-Dri-529073:55 Troponin-I Comments: 'TROP' Serial specimen #1, #2, #3, or #4: [address] [place] [address] [address] [place], [place], [address] TROPONIN-I < 0.02 ng/mL (Normal) Comments: TROPONIN-I EXPECTED VALUES <0.05 NEGATIVE 0.06 - 0.59 AT RISK OF PR > OR = 0.60 SUGGEST PR 6-Evk-191657:40 Basic Metabolic Profile (BMP) Comments: 'TROP' Serial specimen #1, #2, #3, or #4: [address] [place] [address] [place], [place], [address] GAP 7 (Normal) Range: 5-15 CO2 24.0 [...] A.D.A. criteria.Please note revised GLUCOSE reference range coxzvdhyk54/02/2018. 2-Nfo-432531:40 BNP,B-Type NATRIURETIC PEPTIDE Comments: [facility] [address] [place], [place], [address] B-TYPE MARY JO PEP 226.6 pg/mL (Abnormal) Range: 0-100 9-Xwl-652928:40 CBC W/Diff, Automated Comments: [facility] [address] [place], [place], [address] SMEAR COMMENT SCANNED (Normal) Comments: 1+ ANISOCYTOSIS [...] Range: 4.4-11.0 :40 Prothrombin Time w/INR Comments: [address] [place], [address] INR 2.8 (Normal) PROTIME 29.7 s (Abnormal) Range: 11.7-14.9 6-Skj-458537:40 Troponin-I Comments: 'TROP' Serial specimen #1, #2, #3, or #4: [address] [place], [address] TROPONIN-I < 0.02 ng/mL (Normal) Comments: TROPONIN-I EXPECTED VALUES <0.05 NEGATIVE 0.06 - 0.59 AT RISK OF PR > OR = 0.60 SUGGEST PR 84-Cxh-10052:53 CBC W/Diff, Automated Comments: CMP,LIPID,FERRITIN,IRON,TIBC FOR CIESAReason for Laboratory Test [facility]IA[facility] [address]prgsccwzx5[address] [place], [place], [address] HYPOCHROMASIA 2+ (Normal) POLYCHROMASIA RARE (Normal) ANISO [...] Comments: CMP,LIPID,FERRITIN,IRON,TIBC FOR Christianoason for Laboratory Test [facility]WM[facility] [address]qwfg[address] [place], [address] Profil GAP 8 (Normal) Range: 5-15 CO2 24.0 mmol/L (Normal) Range: 21.0-32.0 CL 107 mmol/L (Normal) Range: 98-107 K 4.3 mmol/L (Normal) Range: 3.5-5.1 NA 139 mmol/L (Normal) Range: 136-145 T BILI 0.50 mg/dL (Normal) Range: 0.20-1.00 ALT 17 U/L (Normal) Range: 13-56 Comments: Please note revised ALT reference range xmpnfbliu56/28/2018. ALK P 76 U/L (Normal) Range: 45-117 [...] A.D.A. criteria.Please note revised GLUCOSE reference range saxdbukte10/02/2018. 13-Poa-01045:53 Ferritin Comments: CMP,LIPID,FERRITIN,IRON,TIBC FOR CIESAReason for Laboratory Test [facility] [address] [place], [address] FERRITIN 32 ng/mL (Normal) Range: 8-252 :53 Iron+Iron Binding Comments: CMP,LIPID,FERRITIN,IRON,TIBC FOR CIESAReason for Laboratory Test [facility] [address] [place], [address] Capacity IRON SATURATION 21.2 % (Normal) Range: 15.0-55.0 IRON 95 ug/dL (Normal) Range: 50-170 TIBC 449 ug/dL (Normal) Range: 250-450 :53 Lipid Profile Comments: CMP,LIPID,FERRITIN,IRON,TIBC FOR [facility] CHARLOTTEAReason for Laboratory Test [facility] [address]ts[address] [place], [address] VLDL 24 mg/dL (Normal) Range: 5-40 [...] mg/dL High Risk :54 Culture, Urine Comments: [facility] [address]uv[address] [place], [address] CUUR See Note (Normal) Comments: Urine CultureBelow infection level. ORGANISM 1: Mixed Gram Positive OrganismsColony Count 1000-10,000 8-Jxe-471646:54 Urinalysis, Complete Comments: How was Urine Obtained? CLEAN [facility] [address] [place], [address] MUCUS, URINE 0 SEEN {/hpf} [...] COLOR Yellow (Normal) :37 HgA1C , Office (51987) HgA1C , Office 5.5 % (Normal) Range: 4.6 - 7.1 :35 Blood Glucose , Office (32957) Blood Glucose , Office 170 (Normal) 24-Xfy-55583:12 Influenza A&B Viral Comments: PATIENT NOT FASTINGPERFORMED BY: [facility] Utspxf6145 [facility] [id number] Information: SRC:NL Culture (38312) Viral Culture,Rapid,Influenza FLUABN (Normal) Comments: Negative:No Influenza A or B detected. 28-Vpc-395381:40 Rapid Flu (05814 x 2) Influenza A Ag neg (Normal) 92-Mzl-455226:16 CBC W/Diff, Automated Comments: Reason for Laboratory Test [facility] [address]jh[address] [place], [address] ; Dr Khan Absolute Lymph [...] 4.2-5.4 WBC 9.6 K/mm3 (Normal) Range: 4.4-11.0 59-Hgm-724717:16 Ferritin Comments: Reason for Laboratory Test [facility] [address] [place], [address] FERRITIN 33 ng/mL (Normal) Range: 8-252 88-Aiz-614650:16 Iron+Iron Binding Capacity Comments: Reason for Laboratory Test [facility] [address] [place], [address] IRON SATURATION 12.8 % (Abnormal) Range: 15.0-55.0 IRON 56 ug/dL (Normal) Range: 50-170 TIBC 436 ug/dL (Normal) Range: 250-450 [id number] Retic Panel Comments: Reason for Laboratory Test [facility] [id number] [place], [address] IPF 3.1 % (Normal) Range: [...] (Abnormal) Range: 0.5-1.5 :16 HgA1C , Office (71313) Comments: 5.6 HgA1C , Office 5.6 % (Normal) Range: 4.6 - 7.1 :16 Blood Glucose , Office (80582) Blood Glucose , Office 145 (Normal) :22 PT (PROTHROMBIN TIME) (69977) Comments: Standing order; PATIENT NOT FASTINGPERFORMED BY: [id number] [facility] [id number] Prothrombin Time 11.5 {sec} (Normal) Range: 9.1-12.0 INR 1.1 (Normal) Range: 0.8-1.2 Comments: Reference interval is for non-anticoagulated patients. . Suggested INR therapeutic range for Vitamin K anta gonist therapy: Standard Dose (moderate intensity therapeutic range): 2.0 - 3.0 Higher intensity therapeutic range 2.5 - 3.5 :25 PT (PROTHROMBIN TIME) (91363) Comments: Standing order; PATIENT NOT FASTINGPERFORMED BY: [employer] [id number] [facility] [id number] Prothrombin Time 17.1 {sec} (Abnormal) Range: 9.1-12.0 INR 1.7 (Abnormal) Range: 0.8-1.2 Comments: Reference interval is for non-anticoagulated patients. . Suggested INR therapeutic range for Vitamin K anta gonist therapy: Standard Dose (moderate intensity therapeutic range): 2.0 - 3.0 Higher intensity therapeutic range 2.5 - 3.5 :55 Blood Gases by [facility] Comments: [place] [address] [place] [address] SO2 ISTAT 95 % (Normal) Range: 95-99 TOTAL CO2 ISTAT 24 mmol/L (Normal) BE ISTAT -2 mmol/L (Normal) HCO3 ISTAT 23.1 mmol/L (Normal) Range: 22-26 PO2 I-STAT 77 {mmHG} (Normal) Range: 75-100 pCO2 - ISTAT 37.5 {mmHg} (Normal) Range: 35-45 pH - I-STAT 7.40 (Normal) Range: 7.35-7.45 BLD GAS TYPE ART (Normal) :35 Venous Blood Gas Comments: [place] [address] [place] [address] ISTAT 25 [...] ANTONIO (Normal) :32 Venous Blood Gas Comments: [place] [address] [place] [address] ISTAT 25 [...] 7.32-7.42 BLD GAS TYPE JUAN ANTONIO (Normal) 8-Cot-555155:01 Basic Metabolic Profile (BMP) Comments: Order Date: 03/26/17Order Info: [id number] - *BMPComments: Reason:[facility] [address] [place], [place], [id number] GAP 6 (Normal) Range: 5-15 CO2 27.0 [...] HOMEOSTASIS per A.D.A. criteria.; ADDENDA: another doc 2-Jag-811890:01 CBC-Complete Blood Cnt No Diff Comments: Order Date: 03/26/17Order Info: [id number] - *CBC without DiffComments: Reason:[facility] [address] [place], [place], [id number] ; another doc MPV 12.4 fL (Abnormal) [...] 7.6 K/mm3 (Normal) Range: 4.4-11.0 :31 Iron (69619) Comments: PATIENT NOT FASTINGPERFORMED BY: [employer] [facility] Uqndti3351 [facility] [id number] Iron, Serum 70 ug/dL (Normal) Range: 27-139 :31 Ferritin (14143) Comments: PATIENT NOT FASTINGPERFORMED BY: [employer] [facility] Ggnqwn4435 [facility] [id number] Ferritin, Serum 90 ng/mL (Normal) Range: 15-150 :31 Metabolic Panel, Comprehensive Comments: PATIENT NOT FASTINGPERFORMED BY: [employer] [facility] Vkddcl3566 [facility] [id number] (55223) ALT (SGPT) 16 [iU]/L (Normal) Range: 0-32 [...] Glucose, Serum 109 mg/dL (Abnormal) Range: 65-99 30-Sxr-31096:31 CBC WITH MANUAL DIFF (02248) Comments: PATIENT NOT FASTINGPERFORMED BY: [facility] Pmmqyo4264 [facility] [id number] Immature Grans (Abs) 0.0 {x10E3/uL} Range: 0.0-0.1 [...] sent toHeron Hobbs M.D..PATIENT NOT FASTINGPERFORMED BY: [facility]6370 [facility] [id number] 12:16 Range: 15-150 63-Eis-639881:16 CBC, PLATELETS & AUT DIFF Comments: A courtesy copy of this report has been sent toHeron Hobbs M.D..PATIENT NOT FASTINGPERFORMED BY: [facility] Jlkhok7519 [facility] [id number] (27898) Immature Grans (Abs) 0.0 {x10E3/uL} (Normal) Range: [...] 3.77-5.28 WBC 9.1 {x10E3/uL} (Normal) Range: 3.4-10.8 12-Aoz-920796:16 IRON & TOTAL IRON BINDING Comments: A courtesy copy of this report has been sent toHeron Hobbs M.D..PATIENT NOT FASTINGPERFORMED BY: [facility] Iluqhm6244 [facility] [id number] CAPACITY (64937) Iron Saturation 10 % (Abnormal) Range: 15-55 Iron, Serum 40 ug/dL (Normal) Range: 27-139 UIBC 358 ug/dL (Normal) Range: 118-369 Iron Bind.Cap.(TIBC) 398 ug/dL (Normal) Range: 250-450 91-Opy-420153:43 Culture, Urine Comments: [facility] [address] [place], [address] CUUR See Note (Normal) Comments: [...] $ <=20 S(NF) indicates non-formulary drug at [facility]. Approval by Infectious Disease Specialist required before non- formulary drugs may be ordered and/or dispensed. 0-Fxs-655050:00 Basic Metabolic Profile (BMP) Comments: [facility] [address] [place], [place], [id number] GAP 10 (Normal) Range: 5-15 CO2 23.0 [...] <126 mg/dLsuggests IMPAIRED HOMEOSTASIS per A.D.A. criteria. 0-Dst-587328:00 CBC W/Diff, Automated Comments: [facility] [address] [place], [address] ; ER Absolute Lymph 1.09 {X10_3/ul} (Normal) [...] 4.2-5.4 WBC 6.5 K/mm3 (Normal) Range: 4.4-11.0 0-Ldc-434731:00 Prothrombin Time w/INR Comments: [facility] [address] [place], [place], [id number] INR 1.2 (Normal) PROTIME 14.6 s (Normal) Range: 11.7-14.9 1-Kmh-964634:00 Microscopic Examination Comments: PATIENT WAS FASTINGPERFORMED BY: LabCoJFK [facility] Rehabilitation InstituteEpejki8568 [facility] [id number] Bacteria Few (Normal) Mucus Threads Present (Normal) Epithelial Cells (non renal) 0-10 {/hpf} (Normal) Range: 0 - 10 RBC 0-2 {/hpf} (Normal) Range: 0 - 2 WBC 0-5 {/hpf} (Normal) Range: 0 - 5 22-Hqs-50508:40 Urinalysis, Complete Comments: Order Date: 12/09/16Order Date: 12/09/16How was Urine Obtained? [facility] [address] [place], [place], [id number] MUCUS, URINE 0 SEEN {/hpf} (Normal) BACTERIA [...] (Normal) CLARITY Cloudy (Normal) COLOR Yellow (Normal) 52-Ulw-44078:00 Prothrombin Time w/INR Comments: REDRAW. PREVIOUS SPECIMEN REJECTED DUE TOQNS. 12/09/1647 Jessica Allen.REDRAW. PREVIOUS SPECIMEN REJECTED DUE TOQNS. 12/09/1647 Jessica Allen.[facility] [address] [place], [phone] INR 1.6 (Normal) PROTIME 18.1 s (Abnormal) Range: 11.7-14.9 20-Xvi-56462:10 Basic Metabolic Profile (BMP) Comments: 'TROP' Serial specimen #1, #2, #3, or #4: [address] [place] [address] [place], [place], [address] GAP 11 (Normal) Range: 5-15 CO2 23.0 [...] A.D.A. criteria. :10 BNP,B-Type NATRIURETIC PEPTIDE Comments: [facility] [address] [place], [place], [address] B-TYPE MARY JO PEP 243.7 pg/mL (Abnormal) Range: 0-100 :10 CBC W/Diff, Automated Comments: [facility] [address]om[address] [place], [place], [address] SMEAR COMMENT SCANNED (Normal) Comments: LYMPHOPENIA NOTED [...] Serial specimen #1, #2, #3, or #4: [facility] Uphmbuikcr[address] [place], [place], [address] TROPONIN-I 0.43 ng/mL (Abnormal) Comments: TROPONIN-I EXPECTED VALUES <0.05 NEGATIVE 0.06 - 0.59 AT RISK OF PR > OR = 0.60 SUGGEST PR :02 Lactic Acid Comments: [facility] [address] [place], [place], [address] LACTIC ACID 2.2 mmol/L (Abnormal) Range: 0.4-2.0 72-Kat-060471:45 Rapid Flu (71660 x 2) Comments: Negative Influenza A Ag neg a/b (Normal) 7-Wkn-856045:00 MICROALBUMIN: CREATININE RATIO Comments: PATIENT WAS FASTINGPERFORMED BY: [employer]70 [facility] [id number] (79969) AND (11139) Microalb/Creat Ratio 29.7 {mg/g_creat} (Normal) Range: 0.0-30.0 Microalbumin, Urine 15.2 ug/mL (Normal) Creatinine, Urine 51.2 mg/dL (Normal) :00 URINALYSIS (42447) Comments: PATIENT WAS FASTINGPERFORMED BY: [employer]6370 [facility] [id number] Microscopic Examination See below: (Normal) Comments: Microscopic was indicated and was performed. Nitrite, Urine Negative (Normal) Urobilinogen,Semi-Qn 0.2 mg/dL (Normal) Range: 0.2-1.0 Bilirubin Negative (Normal) Occult Blood Trace (Abnormal) Ketones Negative (Normal) Glucose Negative (Normal) Protein Negative (Normal) WBC Esterase 2+ (Abnormal) Appearance Clear (Normal) Urine-Color Yellow (Normal) pH 6.0 (Normal) Range: 5.0-7.5 Specific [place] 1.010 (Normal) Range: 1.005-1.030 :00 TSH (54055) Comments: PATIENT WAS FASTINGPERFORMED BY: [facility]6370 [facility] [id number] TSH 3.850 {uIU/mL} (Normal) Range: 0.450-4.500 1-Nej-198463:00 CBC, Platelets & Auto Diff Comments: PATIENT WAS FASTINGPERFORMED BY: [facility]6370 [facility] [id number] (16262) Immature Grans (Abs) 0.0 {x10E3/uL} (Normal) Range: [...] 3.77-5.28 WBC 8.8 {x10E3/uL} (Normal) Range: 3.4-10.8 4-Imz-921156:00 Metabolic Panel, Comprehensive Comments: PATIENT WAS FASTINGPERFORMED BY: [facility]6370 [facility] [id number] (09557) ALT (SGPT) 24 [iU]/L (Normal) Range: 0-32 [...] Glucose, Serum 106 mg/dL (Abnormal) Range: 65-99 92-Xey-32597:10 CBC W/Diff, Automated Comments: [facility] [address] [place], [place], [address] Absolute Lymph 1.29 {X10_3/ul} (Normal) Range: 0.83-4.51 [...] (Normal) Range: 4.4-11.0 :08 HgA1C , Office (68519) HgA1C , Office 5.5 % (Normal) Range: 4.6 - 7.1 :08 Blood Glucose , Office (52832) Blood Glucose , Office 155 (Normal) 5-Yab-405330:25 BNP,B-Type NATRIURETIC PEPTIDE Comments: [facility] [address] [place], [place], [address] ; another doc B-TYPE MARY JO PEP 147.4 pg/mL (Abnormal) Range: 0-100 :18 HgA1C , Office (59112) HgA1C , Office 6.0 % (Normal) Range: 4.6 - 7.1 :18 Blood Glucose , Office (70061) Blood Glucose , Office 109 (Normal) :21 HgA1C , Office (65063) HgA1C , Office 6.1 % (Normal) Range: 4.6 - 7.1 9-Aug-10985:21 Blood Glucose , Office (80984) Blood Glucose , Office 117 (Normal) 7-Kpa-157458:21 METABOLIC PANEL, Comments: PATIENT NOT FASTINGPERFORMED BY: [employer] [facility] [id number] Information: [id number] COMPREHENSIVE (20758) ALT (SGPT) 15 [iU]/L (Normal) Range: 0-32 [...] Glucose, Serum 92 mg/dL (Normal) Range: 65-99 3-Pol-579182:21 Vitamin D Hydroxy (88483) Comments: PATIENT NOT FASTINGPERFORMED BY: Comic RocketJFK Johnson Rehabilitation InstituteYbhgwh0932 [facility] [id number] Vitamin D, 25-Hydroxy 59.7 ng/mL (Normal) Range: 30.0-100.0 Comments: Vitamin D deficiency has been defined by the [place] of[place]icine and an Endocrine Society practice guideline as alevel of serum 25-OH vitamin D less than 20 ng/mL (1,2).The Endocrine Society went on to further define vitamin Dinsufficiency as a level between 21 and 29 ng/mL (2).1. IOM ([place] of Medicine). 2010. Dietary reference intakes for calcium and D. [place]: The National Academies Press.2. [place] MF, James MCGOWAN, Dolores MARTINEZ, et al. Evaluation, treatment, and prevention of vitamin D deficiency: an Endocrine Society clinical practice guideline. JCEM. 2010; 96(7):1911-30. -:06 HgA1C , Office (71430) HgA1C , Office 6.0 % (Normal) Range: 4.6 - 7.1 :15 HgA1C , Office (13508) HgA1C , Office 6.4 % (Normal) Range: 4.6 - 7.1 :31 HgA1C , Office (57902) HgA1C , Office 6.0 % (Normal) Range: 4.6 - 7.1 :04 HgA1C , Office (11728) HgA1C , Office 6.0 % (Normal) Range: 4.6 - 7.1 :09 HgA1C , Office (19974) HgA1C , Office 6.0 % (Normal) Range: 4.6 - 7.1 :32 HgA1C , Office (67050) HgA1C , Office 6.2 % (Normal) Range: 4.6 - 7.1 :24 HgA1C , Office (33476) HgA1C , Office 6.2 % (Normal) Range: 4.6 - 7.1 :59 PT (Prothrobim Time) Comments: PATIENT NOT FASTINGPERFORMED BY: [facility] Hobxdu8873 [facility] [id number] Information: [id number] (97777) Prothrombin Time 25.2 {sec} (Abnormal) Range: 9.1-12.0 INR 2.4 (Abnormal) Range: 0.8-1.2 Comments: Reference interval is for non-anticoagulated patients. . Suggested INR therapeutic range for Vitamin K anta gonist therapy: Standard Dose (moderate intensity therapeutic range): 2.0 - 3.0 Higher intensity therapeutic range 2.5 - 3.5 :22 PT (Prothrobim Time) Comments: PATIENT NOT FASTINGPERFORMED BY: [place] [address] [facility] [id number] Information: [id number] (92626) Prothrombin Time 22.4 {sec} (Abnormal) Range: 9.1-12.0 INR 2.2 (Abnormal) Range: 0.8-1.2 Comments: Reference interval is for non-anticoagulated patients. . Suggested INR therapeutic range for Vitamin K anta gonist therapy: Standard Dose (moderate intensity therapeutic range): 2.0 - 3.0 Higher intensity therapeutic range 2.5 - 3.5 52-Tet-788936:39 HgA1C , Office (54992) HgA1C , Office 6.5 % (Normal) Range: 4.6 - 7.1 53-Uyq-310351:37 PT (Prothrobim Time) Comments: PATIENT NOT FASTINGPERFORMED BY: [place] [address] [facility] [id number] Information: [id number] (30502) Prothrombin Time 20.7 {sec} (Abnormal) Range: 9.1-12.0 INR 1.9 (Abnormal) Range: 0.8-1.2 Comments: Reference interval is for non-anticoagulated patients. . Suggested INR therapeutic range for Vitamin K anta gonist therapy: Standard Dose (moderate intensity therapeutic range): 2.0 - 3.0 Higher intensity therapeutic range 2.5 - 3.5 98-Wgg-371978:34 BNTP (15620) Comments: PATIENT NOT FASTINGPERFORMED BY: [place] [id number] [facility] [id number] B-Type Natriuretic Peptide 156.2 pg/mL (Abnormal) Range: 0.0-100.0 14-Qkf-698049:34 PT (Prothrobim Time) (22116) Comments: PATIENT NOT FASTINGPERFORMED BY: [facility]6370 [facility] [id number] Prothrombin Time 13.1 {sec} (Abnormal) Range: 9.1-12.0 INR 1.3 (Abnormal) Range: 0.8-1.2 Comments: Reference interval is for non-anticoagulated patients. . Suggested INR therapeutic range for Vitamin K anta gonist therapy: Standard Dose (moderate intensity therapeutic range): 2.0 - 3.0 Higher intensity therapeutic range 2.5 - 3.5 17-Oqc-495320:34 CULTURE, SPUTUM (22142) Comments: PATIENT NOT FASTINGPERFORMED BY: [facility]6370 [facility] [id number] Lower Respiratory Culture Final report (Normal) Result 1 RRF (Normal) Comments: Routine respiratory anisa 52-Txg-403222:20 PT (Prothrobim Time) Comments: PATIENT NOT FASTINGPERFORMED BY: [facility]6370 [facility] [id number] Information: [id number] (22524) Prothrombin Time 21.0 {sec} (Abnormal) Range: 9.1-12.0 INR 2.0 (Abnormal) Range: 0.8-1.2 Comments: Reference interval is for non-anticoagulated patients. . Suggested INR therapeutic range for Vitamin K anta gonist therapy: Standard Dose (moderate intensity therapeutic range): 2.0 - 3.0 Higher intensity therapeutic range 2.5 - 3.5 46-Ogd-467249:11 PT (Prothrobim Time) Comments: PATIENT NOT FASTINGPERFORMED BY: [facility]6370 [facility] [id number] Information: [id number] (38660) Prothrombin Time 15.3 {sec} (Abnormal) Range: 9.1-12.0 INR 1.5 (Abnormal) Range: 0.8-1.2 Comments: Reference interval is for non-anticoagulated patients. . Suggested INR therapeutic range for Vitamin K anta gonist therapy: Standard Dose (moderate intensity therapeutic range): 2.0 - 3.0 Higher intensity therapeutic range 2.5 - 3.5 :45 HgA1C , Office (89709) HgA1C , Office 6.5 % (Normal) Range: 4.6 - 7.1 :18 PT (Prothrobim Time) Comments: PATIENT NOT FASTINGPERFORMED BY: [facility]6370 [facility] [id number] Information: [id number] (58960) Prothrombin Time 20.0 {sec} (Abnormal) Range: 9.1-12.0 INR 1.9 (Abnormal) Range: 0.8-1.2 Comments: Reference interval is for non-anticoagulated patients. . Suggested INR therapeutic range for Vitamin K anta gonist therapy: Standard Dose (moderate intensity therapeutic range): 2.0 - 3.0 Higher intensity therapeutic range 2.5 - 3.5 :24 HgA1C , Office (60084) HgA1C , Office 6.1 % (Normal) Range: 4.6 - 7.1 :53 HgA1C , Office (03193) HgA1C , Office 6.2 % (Normal) Range: 4.6 - 7.1 :05 CBC WITH MANUAL DIFF Comments: today; PATIENT NOT FASTINGPERFORMED BY: [place] [id number] [facility] [id number] Information: [id number] (53390) Hematology Comments: Note: (Normal) Comments: Verified by [...] 3.77-5.28 WBC 9.2 {x10E3/uL} (Normal) Range: 4.0-10.5 15-Opx-630145:30 HgA1C , Office (54304) HgA1C , Office 6.1 % (Normal) Range: 4.6 - 7.1 59-Ytb-442963:33 PT (Prothrobim Time) Comments: PATIENT NOT FASTINGPERFORMED BY: [place] [id number] [facility] [id number] Information: [id number] (53085) Prothrombin Time 17.9 {sec} (Abnormal) Range: 9.1-12.0 INR 1.7 (Abnormal) Range: 0.8-1.2 Comments: Reference interval is for non-anticoagulated patients. . Suggested INR therapeutic range for Vitamin K anta gonist therapy: Standard Dose (moderate intensity therapeutic range): 2.0 - 3.0 Higher intensity therapeutic range 2.5 - 3.5 92-Yuy-992417:27 PT (Prothrobim Time) Comments: PATIENT NOT FASTINGPERFORMED BY: [facility]6370 [facility] [id number] Information: [id number] (79871) Prothrombin Time 26.3 {sec} (Abnormal) Range: 9.1-12.0 INR 2.6 (Abnormal) Range: 0.8-1.2 Comments: Reference interval is for non-anticoagulated patients. . Suggested INR therapeutic range for Vitamin K anta gonist therapy: Standard Dose (moderate intensity therapeutic range): 2.0 - 3.0 Higher intensity therapeutic range 2.5 - 3.5 9-Fkf-444494:01 BILAT SCRN DIGITAL & CAD Radiology Report [...] Cho M.D.July 25, 2012 at 11:23:11 AM [id number] Signed GP/GP If you are the referring physician and would like to consult with theradiologist who provided this interpretation, please contact Clinton Ignacio at [phone]. If this radiologist is unavailable, youwill be directed to another radiologist to assist. If you are a patient with a question regarding this report, pleasecontactyour referring physician directly. Professional Interpretation Provided By: [employer], Phone , These documents contain leg ally [...] 07/25/12 1128 Sign by: Irvin Cho MD 04-Xig-206374:44 HgA1C , Office (67085) HgA1C , Office 6.6 % (Normal) Range: 4.6 - 7.1 :44 Blood Glucose , Office (71837) Blood Glucose , Office 101 (Normal) :02 PT (Prothrobim Time) Comments: standing order; PATIENT NOT FASTINGPERFORMED BY: [facility]6370 [facility] [id number] Information: [id number] (94279) Prothrombin Time 20.6 {sec} (Abnormal) Range: 9.1-12.0 INR 2.0 (Abnormal) Range: 0.8-1.2 Comments: Reference interval is for non-anticoagulated patients. . Suggested INR therapeutic range for Vitamin K anta gonist therapy: Standard Dose (moderate intensity therapeutic range): 2.0 - 3.0 Higher intensity therapeutic range 2.5 - 3.5 23-Crf-280875:09 HgA1C , Office (63011) HgA1C , Office 6.1 % (Normal) Range: 4.6 - 7.1 71-Kpy-69851:00 Prothrombin Time (PT) Comments: PATIENT NOT FASTINGPERFORMED BY: [facility]6370 [facility] [id number] Prothrombin Time 21.7 {sec} (Abnormal) Range: 9.1-12.0 INR 2.1 (Abnormal) Range: 0.8-1.2 Comments: Reference interval is for non-anticoagulated patients. . Suggested INR therapeutic range for Vitamin K anta gonist therapy: Standard Dose (moderate intensity therapeutic range): 2.0 - 3.0 Higher intensity therapeutic range 2.5 - 3.5 :42 PT (PROTHROMBIN TIME) Comments: PATIENT NOT FASTINGPERFORMED BY: [facility]6370 [facility] [id number] Information: [id number] (05341) Prothrombin Time 18.7 {sec} (Abnormal) Range: 9.1-12.0 INR 1.8 (Abnormal) Range: 0.8-1.2 Comments: Reference interval is for non-anticoagulated patients. . Suggested INR therapeutic range for Vitamin K anta gonist therapy: Standard Dose (moderate intensity therapeutic range): 2.0 - 3.0 Higher intensity therapeutic range 2.5 - 3.5 23-Acz-75227:06 PT (PROTHROMBIN TIME) Comments: PATIENT NOT FASTINGPERFORMED BY: [place] [id number] [facility] [id number] Information: [id number] (02262) Prothrombin Time 21.7 {sec} (Abnormal) Range: 9.1-12.0 INR 2.0 (Abnormal) Range: 0.8-1.2 Comments: Reference interval is for non-anticoagulated patients. . Suggested INR therapeutic range for Vitamin K anta gonist therapy: Standard Dose (moderate intensity therapeutic range): 2.0 - 3.0 Higher intensity therapeutic range 2.5 - 3.5 94-Omj-022557:01 ERYTHROPOIETIN (85837) Comments: PATIENT NOT FASTINGPERFORMED BY: [facility]6370 [facility] [id number] Erythropoietin 38.7 m[iU]/mL (Abnormal) Range: 4.2-27.8 92-Lbn-735691:01 Vitamin D Hydroxy (75809) Comments: PATIENT NOT FASTINGPERFORMED BY: [place] [id number] [facility] [id number] Vitamin D, 25-Hydroxy 52.5 ng/mL (Normal) Range: 30.0-100.0 Comments: Vitamin D deficiency has been defined by the [place] of[place]icine and an Endocrine Society practice guideline as alevel of serum 25-OH vitamin D less than 20 ng/mL (1,2).The Endocrine Society went on to further define vitamin Dinsufficiency as a level between 21 and 29 ng/mL (2).1. IOM ([place] of Medicine). 2010. Dietary reference intakes for calcium and D. [place]: The National Academies Press.2. [place] MF, James MCGOWAN, Dolores MARTINEZ, et al. Evaluation, treatment, and prevention of vitamin D deficiency: an Endocrine Society clinical practice guideline. JCEM. 2010; 96(7):1911-30. 74-Rcs-169483:01 VITAMIN B-12 (CYANOCOBALAMIN) Comments: PATIENT NOT FASTINGPERFORMED BY: [employer] [facility] [id number] (54986) Vitamin B12 779 pg/mL (Normal) Range: 211-946 36-Dkp-332418:01 RETICULOCYTE COUNT MANUL Comments: PATIENT NOT FASTINGPERFORMED BY: [employer] Robtkg8539 [facility] [id number] (75063) Reticulocyte Count 1.9 % (Normal) Range: 0.5-3.0 65-Ecz-341816:01 LDH (LD) (LACTATE DEHYDROGENASE) Comments: PATIENT NOT FASTINGPERFORMED BY: [employer] Zpmsmc8199 [facility] [id number] (48017) LDH 174 [iU]/L (Normal) Range: 0-214 30-Eyp-943393:01 IRON BINDING CAPACITY Comments: PATIENT NOT FASTINGPERFORMED BY: [employer] Rbhvkm3409 [facility] [id number] Information: [id number] (TIBC) (19407) Iron Saturation 9 % (Abnormal) Range: 15-55 Iron, Serum 35 ug/dL (Normal) Range: 35-155 UIBC 355 ug/dL (Normal) Range: 150-375 Iron Bind.Cap.(TIBC) 390 ug/dL (Normal) Range: 250-450 12-Sdl-341563:01 FERRITIN (25400) Comments: PATIENT NOT FASTINGPERFORMED BY: [facility]6370 [facility] [id number] Ferritin, Serum 59 ng/mL (Normal) Range: 13-150 :47 HgA1C , Office (34768) HgA1C , Office 6.2 % (Normal) Range: 4.6 - 7.1 :48 Prothrombin Time (PT) Comments: PERFORMED BY: [place] [id number] [facility] [id number] Prothrombin Time 20.1 {sec} (Abnormal) Range: 9.1-12.0 Comments: Please note reference interval change INR 1.9 (Abnormal) Range: 0.8-1.2 Comments: Reference interval is for non-anticoagulated patients. . Suggested INR therapeutic range for Vitamin K anta gonist therapy: Standard Dose (moderate intensity therapeutic range): 2.0 - 3.0 Higher intensity therapeutic range 2.5 - 3.5 :56 HgA1C , Office (97499) HgA1C , Office 6.4 % (Normal) Range: 4.6 - 7.1 :56 Blood Glucose , Office (44245) Blood Glucose , Office 111 (Normal) :48 PT (PROTHROMBIN TIME) Comments: PATIENT NOT FASTINGPERFORMED BY: [facility]6370 [facility] [id number] Information: [id number] (23619) Prothrombin Time 28.0 {sec} (Abnormal) Range: 9.1-12.0 Comments: Please note reference interval change INR 2.6 (Abnormal) Range: 0.8-1.2 Comments: Reference interval is for non-anticoagulated patients. . Suggested INR therapeutic range for Vitamin K anta gonist therapy: Standard Dose (moderate intensity therapeutic range): 2.0 - 3.0 Higher intensity therapeutic range 2.5 - 3.5 1-Vqj-977647:42 BILAT SCRN DIGITAL & CAD Radiology Report [...] 07/20/11 1305 Sign by: Irvin Cho MD 0-Nnq-911553:14 PT (PROTHROMBIN TIME) Comments: PATIENT NOT FASTINGPERFORMED BY: [employer]6370 [facility] [id number] Information: [id number] (96034) Prothrombin Time 37.0 {sec} (Abnormal) Range: 9.1-12.0 Comments: Please note reference interval change INR 3.5 (Abnormal) Range: 0.8-1.2 Comments: Reference interval is for non-anticoagulated patients. . Suggested INR therapeutic range for Vitamin K anta gonist therapy: Standard Dose (moderate intensity therapeutic range): 2.0 - 3.0 Higher intensity therapeutic range 2.5 - 3.5 3-Mhh-873738:15 URIC ACID BLOOD (02768) Comments: PATIENT NOT FASTINGPERFORMED BY: Comic RocketJFK Johnson Rehabilitation InstituteMwziyc3066 Vancleve RevelensAt[facility] Health Lincoln [id number] Information: [id number],2ND ORDER Uric Acid, Serum 5.3 mg/dL (Normal) Range: 2.5-7.1 Comments: Therapeutic target for gout patients: <6.0 67-Vxc-226364:26 FECAL OCCULT- Tubes sent home (92259) FECAL OCCULT HGB ASSAY, QUAL, 1-3 SIMULTANEOU negative (Normal) 73-Klx-111844:37 FERRITIN (73869) Comments: PATIENT NOT FASTINGPERFORMED BY: [employer] Rkabqs8443 [address] [place] [id number] Ferritin, Serum 109 ng/mL (Normal) Range: 13-150 96-Lud-369480:37 IRON (02626) Comments: PATIENT NOT FASTINGPERFORMED BY: [employer] [place] [id number] Iron, Serum 46 ug/dL (Normal) Range: 35-155 17-Ysn-879314:37 FOLIC ACID SERUM (74130) Comments: PATIENT NOT FASTINGPERFORMED BY: [employer] Ownlve6904 [address] RevelensFormerly [facility] [place] [id number] Folate (Folic Acid), Serum >19.9 ng/mL (Normal) Comments: Indeterminate: 2.2 - 3.0 Deficient: <2.2 29-Upj-831609:37 RETICULOCYTE COUNT MANUL Comments: PATIENT NOT FASTINGPERFORMED BY: [employer] [place]Formerly [facility] [place] [id number] (76799) Reticulocyte Count 1.6 % (Normal) Range: 0.5-3.0 09-Wwe-896517:37 LDH (LD) (LACTATE DEHYDROGENASE) Comments: PATIENT NOT FASTINGPERFORMED BY: [employer] Zylulp23[address] [facility] [place] [id number] (22798) LDH 179 [iU]/L (Normal) Range: 0-214 35-Nco-404707:37 VITAMIN B-12 (CYANOCOBALAMIN) Comments: PATIENT NOT FASTINGPERFORMED BY: [employer] Tvuwsg9580 [address] [facility] [place] [id number] (49891) Vitamin B12 668 pg/mL (Normal) Range: 211-946 66-Tqy-232309:37 TSH (37086) Comments: PATIENT NOT FASTINGPERFORMED BY: LabCoJFK Johnson Rehabilitation InstituteHeenwm1866 [facility] [id number] TSH 2.500 {uIU/mL} (Normal) Range: 0.450-4.500 40-Lfs-490349:37 CBC WITH MANUAL DIFF Comments: PATIENT NOT FASTINGPERFORMED BY: LabCoJFK Johnson Rehabilitation InstituteFyxuqc5480 [facility] [id number] Information: [id number] (88241) Immature Grans (Abs) 0.0 {x10E3/uL} (Normal) Range: [...] (Normal) Range: 4.0-10.5 :37 Uric Acid Blood (89428) Comments: PATIENT NOT FASTINGPERFORMED BY: YAO [facility]6370 [facility] [id number] Uric Acid, Serum 10.0 mg/dL (Abnormal) Range: 2.5-7.1 Comments: Therapeutic target for gout patients: <6.0 :45 Blood Glucose , Office (35849) Blood Glucose , Office 101 (Normal) :45 HgA1C , Office (21587) HgA1C , Office 6.3 % (Normal) Range: 4.6 - 7.1 :25 PT (Prothrobim Time) Comments: Protime/INR Standing Order; PATIENT NOT FASTINGPERFORMED BY: YAO [place] 1721370 [facility] [id number] Information: [id number] (10597) Prothrombin Time 28.9 {sec} (Abnormal) Range: 8.7-11.5 INR 2.7 (Abnormal) Range: 0.8-1.2 Comments: Reference interval is for non-anticoagulated patients. . Suggested INR therapeutic range for Vitamin K anta gonist therapy: Standard Dose (moderate intensity therapeutic range): 2.0 - 3.0 Higher intensity therapeutic range 2.5 - 3.5 :28 PT (PROTHROMBIN TIME) Comments: PATIENT NOT FASTINGPERFORMED BY: YAO [facility]6370 [facility] [id number] Information: [id number] (10564) Prothrombin Time 24.6 {sec} (Abnormal) Range: 8.7-11.5 INR 2.3 (Abnormal) Range: 0.8-1.2 Comments: Reference interval is for non-anticoagulated patients. . Suggested INR therapeutic range for Vitamin K anta gonist therapy: Standard Dose (moderate intensity therapeutic range): 2.0 - 3.0 Higher intensity therapeutic range 2.5 - 3.5 : Potassium, Serum 5.2 mmol/L (Normal) Comments: PERFORMED BY: YAO [address]blin [place] [id number] Range: 3.5-5.2 9-Ctd-626472:42 Prothrombin Time (PT) Comments: PERFORMED BY: [facility]6370 [facility] [id number] Prothrombin Time 12.8 {sec} (Abnormal) Range: 8.7-11.5 INR 1.2 (Normal) Range: 0.8-1.2 Comments: Reference interval is for non-anticoagulated patients. . Suggested INR therapeutic range for Vitamin K anta gonist therapy: Standard Dose (moderate intensity therapeutic range): 2.0 - 3.0 Higher intensity therapeutic range 2.5 - 3.5 14-Yia-775572:08 Prothrombin Time (PT) Comments: PERFORMED BY: [facility]6370 [facility] [id number] Prothrombin Time 19.2 {sec} (Abnormal) Range: 8.7-11.5 INR 1.8 (Abnormal) Range: 0.8-1.2 Comments: Reference interval is for non-anticoagulated patients. . Suggested INR therapeutic range for Vitamin K anta gonist therapy: Standard Dose (moderate intensity therapeutic range): 2.0 - 3.0 Higher intensity therapeutic range 2.5 - 3.5 :19 Vitamin D Hydroxy (20862) Comments: PATIENT WAS FASTINGPERFORMED BY: [facility]6370 [facility] [id number] Vitamin D, 25-Hydroxy 43.1 ng/mL (Normal) Range: 32.0-100.0 Comments: Effective July 09, 2011 Vitamin D, 25-Hydroxy reference intervals will be changing to 30-100. .Recent studies consider the lower li osbaldo of 32.0 ng/mL to be athreshold for optimal health.Ye JARVIS. J Nutr. 2004;135(2):317-22. :19 MICROALBUMIN: CREATININE RATIO Comments: PATIENT WAS FASTINGPERFORMED BY: [place] 6723670 [facility] [id number] (42926) AND (12304) Microalb/Creat Ratio 24.6 {mg/g_creat} (Normal) Range: 0.0-30.0 Creatinine, Urine 23.6 mg/dL (Normal) Range: 15.0-278.0 Microalbumin, Urine 5.8 ug/mL (Normal) Range: 0.0-17.0 :19 LIPID PANEL (75615) Comments: PATIENT WAS FASTINGPERFORMED BY: [employer] Iidwas9301 [facility] [id number] LDL/HDL Ratio 1.5 {ratio_units} (Normal) Range: 0.0-3.2 [...] MANUAL DIFF Comments: PATIENT WAS FASTINGPERFORMED BY: [employer] Zrkskf8816 [facility] [id number] Information: [id number] CC:[id number] (18052) Immature Grans (Abs) 0.0 {x10E3/uL} (Normal) Range: [...] COMPREHENSIVE Comments: PATIENT WAS FASTINGPERFORMED BY: LabCo Jtlxyc5705 [facility] [id number]; appt 06/05/11 (47991) ALT (SGPT) 16 [iU]/L (Normal) Range: 0-40 [...] Range: 65-99 :59 Blood Glucose , Office (21790) Blood Glucose , Office 129 (Normal) :04 Prothrombin Time (PT) Comments: PERFORMED BY: YAO [facility]StreamCarePart[facility] [id number] Prothrombin Time 25.1 {sec} (Abnormal) Range: 8.7-11.5 INR 2.4 (Abnormal) Range: 0.8-1.2 Comments: Reference interval is for non-anticoagulated patients. . Suggested INR therapeutic range for Vitamin K anta gonist therapy: Standard Dose (moderate intensity therapeutic range): 2.0 - 3.0 Higher intensity therapeutic range 2.5 - 3.5 :34 PT (PROTHROMBIN TIME) Comments: PATIENT NOT FASTINGPERFORMED BY: YAO [employer]70 [facility] Management SolutionCarePartners Rehabilitation Hospital [id number] Information: [id number],NO DRAW FEE 2ND ORD ER (78146) Prothrombin Time 30.5 {sec} (Abnormal) Range: 8.7-11.5 INR 2.9 (Abnormal) Range: 0.8-1.2 Comments: Reference interval is for non-anticoagulated patients. . Suggested INR therapeutic range for Vitamin K anta gonist therapy: Standard Dose (moderate intensity therapeutic range): 2.0 - 3.0 Higher intensity therapeutic range 2.5 - 3.5 :38 Vitamin D Hydroxy (12778) Comments: today and 3 mos; PATIENT NOT FASTINGPERFORMED BY: [employer] STAT-DiagnosticaCarePartners Rehabilitation Hospital [id number] Information: [id number] Vitamin D, 25-Hydroxy 56.7 ng/mL (Normal) Range: 32.0-100.0 Comments: Recent studies consider the lower limit of 32.0 ng/mL to be athreshold for optimal health.Ye JARVIS. J Nutr. 2004;135(2):317-22. 30-Zkr-265037:00 MICROALBUMIN: CREATININE Comments: PATIENT NOT FASTINGPERFORMED BY: LabMinimally invasive devicesJFK Johnson Rehabilitation InstituteQgemtp8985 [facility] [id number] Information: [id number] RATIO (13459) AND (90422) Microalb/Creat Ratio 10.0 {mg/g_creat} (Normal) Range: 0.0-30.0 Microalbumin, Urine 4.3 ug/mL (Normal) Range: 0.0-17.0 Creatinine, Urine 43.2 mg/dL (Normal) Range: 15.0-278.0 :32 Blood Glucose , Office (03570) Blood Glucose , Office 137 (Normal) :32 HgA1C , Office (68240) HgA1C , Office 6.1 % (Normal) Range: 4.6 - 7.1 :38 Prothrombin Time (PT) Comments: PERFORMED BY: LabCoAlbuquerque Indian Health CenterQwdkzf0249 [facility] [id number] Prothrombin Time 26.7 {sec} (Abnormal) Range: 8.7-11.5 INR 2.5 (Abnormal) Range: 0.8-1.2 Comments: Reference interval is for non-anticoagulated patients. . Suggested INR therapeutic range for Vitamin K anta gonist therapy: Standard Dose (moderate intensity therapeutic range): 2.0 - 3.0 Higher intensity therapeutic range 2.5 - 3.5 :21 HgA1C , Office (84663) HgA1C , Office 6.0 % (Normal) Range: 4.6 - 7.1 :21 Blood Glucose , Office (00900) Blood Glucose , Office 118 (Normal) :10 DEXA BONE DENSITY STUDY (HP) Radiology Report See Note (Normal) Comments: CLINICAL:This is a 65-year-old female patient for post menopausal screening. EXAMINATION:DUAL ENERGY X-RAY ABSORPTIOMETRY / DEXA. TECHNIQUE:Bone Density Measurements (BMD) of lumbar spine and bilateral hips wereobtained using a [employer] scanner.. COMPARISON:None. FINDINGS: Lumbar Spine (L1-L4): g/cm2 [...] on 07/19/10 0726 Sign by: Irvin Cho 95-Bpq-83665:00 BILAT SCRN DIGITAL & CAD Radiology Report [...] on 07/19/10 1052 Sign by: ELAINE NIEVES 59-Dpe-18365:59 Prothrombin Time (PT) Comments: PERFORMED BY: YAO 20:20 Mobile[address] SourceMedicalCarePartners Rehabilitation Hospital [id number] Prothrombin Time 30.2 {sec} (Abnormal) Range: 8.7-11.5 INR 2.8 (Abnormal) Range: 0.8-1.2 Comments: Reference interval is for non-anticoagulated patients. . Suggested INR therapeutic range for Vitamin K anta gonist therapy: Standard Dose (moderate intensity therapeutic range): 2.0 - 3.0 Higher intensity therapeutic range 2.5 - 3.5 02-Qrn-910712:36 PT (Prothrobim Time) Comments: standing order; PATIENT NOT FASTINGPERFORMED BY: Comic RocketJFK Johnson Rehabilitation InstituteAxavwt5175 [facility] [id number] Information: [id number] (69885) Prothrombin Time 17.5 {sec} (Abnormal) Range: 8.7-11.5 INR 1.6 (Abnormal) Range: 0.8-1.2 Comments: Reference interval is for non-anticoagulated patients. . Suggested INR therapeutic range for Vitamin K anta gonist therapy: Standard Dose (moderate intensity therapeutic range): 2.0 - 3.0 Higher intensity therapeutic range 2.5 - 3.5 :22 Prothrombin Time (PT) Comments: PERFORMED BY: Comic RocketJFK Johnson Rehabilitation InstituteBzarbv0106 [facility] [id number] Prothrombin Time 19.0 {sec} (Abnormal) Range: 8.7-11.5 INR 1.8 (Abnormal) Range: 0.8-1.2 Comments: Reference interval is for non-anticoagulated patients..Suggested INR therapeutic range for Vitamin Kantagonist therapy:Standard Dose (moderate intensitytherapeutic range): 2.0 - 3.0Higher intensity therapeutic range 2.5 - 3.5 :24 HgA1C , Office (44639) HgA1C , Office 6.6 % (Normal) Range: 4.6 - 7.1 :24 Blood Glucose , Office (43078) Blood Glucose , Office 128 (Normal) :25 CBC With Differential/Platelet Comments: PATIENT WAS FASTINGPERFORMED BY: LabCoJFK Johnson Rehabilitation InstituteYldmfy5027 [facility] [id number] Immature Grans (Abs) 0.0 {x10E3/uL} (Normal) Range: [...] 3.80-5.10 WBC 7.0 {x10E3/uL} (Normal) Range: 4.0-10.5 42-Nky-83833:25 Comp. Metabolic Panel (14) Comments: PATIENT WAS FASTINGPERFORMED BY: LabCoJFK Johnson Rehabilitation InstituteFsnpfa4728 [facility] [id number] ALT (SGPT) 18 [iU]/L (Normal) Range: 0-40 [...] With LDL/HDL Comments: PATIENT WAS FASTINGPERFORMED BY: Mr BananaAtrium Health Lincoln [id number] Ratio LDL Cholesterol Calc 67 mg/dL (Normal) [...] Time (PT) Comments: PATIENT WAS FASTINGPERFORMED BY: [employer]6370 [facility] [id number] INR 1.7 (Abnormal) Range: 0.8-1.2 Comments: Reference interval is for non-anticoagulated patients..Suggested INR therapeutic range for Vitamin Kantagonist therapy:Standard Dose (moderate intensitytherapeutic range): 2.0 - 3.0Higher intensity therapeutic range 2.5 - 3.5 Prothrombin Time 18.0 {sec} Range: 8.7-11.5 (Abnormal) 02-May-2010 Vitamin D, 25-Hydroxy 44.2 ng/mL (Normal) Comments: PATIENT WAS FASTINGPERFORMED BY: [facility]Det[facility]6370 [facility] [id number] 9:25 Range: 32.0-100.0 Comments: Recent studies consider the lower limit of 32.0 ng/mL to be athreshold for optimal health.Ye JARVIS. J Nutr. 2004;135(2):317-22. 29-Uhz-610038:08 Uric Acid, 24 hr Urine Comments: PERFORMED BY: [facility]allin6370 [facility] [id number] Information: 02/13@6AM 02/14@545AM Uric Acid, Urine 24hr 502.4 {mg/24_hr} (Normal) Range: 250.0-750.0 Uric Acid, Urine 15.7 mg/dL (Normal) 73-Bgg-765769:21 Prothrombin Time (PT) Comments: PERFORMED BY: [employer] Zaenun6782 [facility] [id number] Prothrombin Time 24.1 {sec} (Abnormal) Range: 8.7-11.5 INR 2.4 (Abnormal) Range: 0.8-1.2 Comments: Reference interval is for non-anticoagulated patients..Suggested INR therapeutic range for Vitamin Kantagonist therapy:Standard Dose (moderate intensitytherapeutic range): 2.0 - 3.0Higher intensity therapeutic range 2.5 - 3.5 Uric Acid, Serum 10.8 mg/dL (Abnormal) Comments: PERFORMED BY: [facility]6370 [facility] [id number] :21 Range: 2.4-8.2 48-Zie-307911:22 HgA1C , Office (11829) HgA1C , Office 6.4 % (Normal) Range: 4.6 - 7.1 02-Wtc-460817:22 Blood Glucose , Office (37462) Blood Glucose , Office 137 (Normal) 82-Btt-091901:38 URIC ACID BLOOD (47569) Comments: PATIENT NOT FASTINGPERFORMED BY: [facility]6370 [facility] [id number] Information: [id number] Uric Acid, Serum 9.0 mg/dL (Abnormal) Range: 2.4-8.2 61-Iyi-202307:16 FOOT,MIN 3 VIEWS (MT) Radiology Report See Note (Normal) Comments: Exam Number: [id number] LEFT FOOT Three views of the left [...] seen. IMPRESSIONPlantar spur. Reported By: IRVIN CHO 28-Ovo-553387:56 PTT (Activated Partial Comments: PATIENT NOT FASTINGPERFORMED BY: Comic RocketJFK Johnson Rehabilitation InstituteJrsmva8174 [facility] [id number] Thromboplastin Time) (31067) aPTT 56 {sec} (Abnormal) Range: 24-33 Comments: This test has not been validated for monitoring unfractionated heparintherapy. aPTT-based therapeutic ranges for unfractionated heparintherapy have not been established. For general guidelines onHeparin monitoring, refer to the [facility] Directory of Services. 30-Urj-953559:56 PT (Prothrobim Time) Comments: PATIENT NOT FASTINGPERFORMED BY: [facility]iscopeDet[facility] Hospital6370 [facility] [id number] Information: [id number] (59060) Prothrombin Time 24.2 {sec} (Abnormal) Range: 8.7-11.5 INR 2.5 (Abnormal) Range: 0.8-1.2 Comments: Reference interval is for non-anticoagulated patients..Suggested INR therapeutic range for Vitamin Kantagonist therapy:Standard Dose (moderate intensitytherapeutic range): 2.0 - 3.0Higher intensity therapeutic range 2.5 - 3.5 78-Kvm-198812:49 Prothrombin Time (PT) Comments: PERFORMED BY: [facility]6370 [facility] [id number] Prothrombin Time 26.2 {sec} (Abnormal) Range: 8.7-11.5 INR 2.7 (Abnormal) Range: 0.8-1.2 Comments: Reference interval is for non-anticoagulated patients..Suggested INR therapeutic range for Vitamin Kantagonist therapy:Standard Dose (moderate intensitytherapeutic range): 2.0 - 3.0Higher intensity therapeutic range 2.5 - 3.5 Hemoglobin A1c 6.1 % (Abnormal) Comments: PERFORMED BY: Comic RocketJFK Johnson Rehabilitation InstituteTqoely8549 [facility] [id number] :56 Range: 4.8-5.6 Comments: Increased risk for diabetes: 5.7 - 6.4Diabetes: >6.4Glycemic control for adults with diabetes: <7.0.Please note reference interval change :21 HgA1C , Office (52193) HgA1C , Office 6.1 % (Normal) Range: 4.6 - 7.1 :21 Blood Glucose , Office (88237) Blood Glucose , Office 98 (Normal) :46 CBC With Differential/Platelet Comments: A courtesy copy of this report has been sent [phone].PATIENT WAS FASTINGPERFORMED BY: [facility]opeDet[facility] Hospital6370 [facility] [id number] Information: [id number] Baso (Absolute) 0.0 {x10E3/uL} (Normal) Range: 0.0-0.2 [...] copy of this report has been sent [phone].PATIENT WAS FASTINGPERFORMED BY: [facility] Apmcyz3832 [facility] [id number] Alkaline Phosphatase, S 85 [iU]/L (Normal) Range: [...] copy of this report has been sent [phone].PATIENT WAS FASTINGPERFORMED BY: [employer] [facility] Odiflj5586 [facility] [id number] Ratio HDL Cholesterol 37 mg/dL (Abnormal) Comments: [...] copy of this report has been sent [phone].PATIENT WAS FASTINGPERFORMED BY: [facility] Vxlwdf6122 [facility] [id number] Microalb/Creat Ratio 7.2 {mg/g_creat} (Normal) Range: 0.0-30.0 Creatinine, Urine 16.6 mg/dL (Normal) Range: 15.0-278.0 Microalbumin, Urine 1.2 ug/mL (Normal) Range: 0.0-17.0 :46 Prothrombin Time (PT) Comments: A courtesy copy of this report has been sent [phone].PATIENT WAS FASTINGPERFORMED BY: Comic RocketJFK Johnson Rehabilitation InstituteXklvcj3448 [facility] [id number] Prothrombin Time 28.1 {sec} Range: 8.7-11.5 (Abnormal) INR 2.9 (Abnormal) Range: 0.8-1.2 Comments: Reference interval is for non-anticoagulated patients..Suggested INR therapeutic range for Vitamin Kantagonist therapy:Standard Dose (moderate intensitytherapeutic range): 2.0 - 3.0Higher intensity therapeutic range 2.5 - 3.5 Vitamin D, 25-Hydroxy 27.8 ng/mL Comments: A courtesy copy of this report has been sent [phone].PATIENT WAS FASTINGPERFORMED BY: Comic RocketJFK Johnson Rehabilitation InstituteMidtsj2525 [facility] [id number] :46 (Abnormal) Range: 32.0-100.0 Comments: Recent studies consider the lower limit of 32.0 ng/mL to be athreshold for optimal health.Ye JARVIS. J Nutr. 2004;135(2):317-22. 91-Vvg-001214:51 Comp. Metabolic Panel (14) Comments: PERFORMED BY: Comic RocketJFK Johnson Rehabilitation InstituteEkmoht2480 [facility] [id number] A/G Ratio 1.3 (Normal) Range: 1.1-2.5 Albumin, [...] :51 Prothrombin Time (PT) Comments: PERFORMED BY: [facility] [id number] INR 2.3 (Abnormal) Range: 0.8-1.2 Comments: Reference interval is for non-anticoagulated patients. . Suggested INR therapeutic range for Vitamin K anta gonist therapy: Standard Dose (moderate intensity therapeutic range): 2.0 - 3.0 Higher intensity therapeutic range 2.5 - 3.5 Prothrombin Time 22.7 {sec} (Abnormal) Range: 8.7-11.5 :47 PT (Prothrobim Time) (07507) Comments: PATIENT NOT FASTINGClinical Information: [id number] PERFORMED BY: Wordylin6370 [facility] [id number] INR 2.0 (Abnormal) Range: 0.8-1.2 Comments: Reference interval is for non-anticoagulated patients. . Suggested INR therapeutic range for Vitamin K anta gonist therapy: Standard Dose (moderate intensity therapeutic range): 2.0 - 3.0 Higher intensity therapeutic range 2.5 - 3.5 Prothrombin Time 19.7 {sec} (Abnormal) Range: 8.7-11.5 58-Yde-953876:10 HgA1C , Office (18855) HgA1C , Office 6.3 % (Normal) Range: 4.6 - 7.1 61-Eic-941558:10 Blood Glucose , Office (85559) Blood Glucose , Office 109 (Normal) 25-Vdv-589575:58 BILAT SCRN DIGITAL & CAD Radiology Report See Note (Normal) Comments: Exam Number: [id number] MAMMOGRAM, BILATERAL SCREENING DIGITAL AND CAD HISTORYRoutine [...] mammograms werealso examined with computer-aided detection software ([employer], [employer] Reported By: ELAINE NIEVES M.D. 1-Fah-394584:22 PRO TIME INR 2.3 (Normal) PROTIME 26.1 s (Abnormal) Range: 9.1-11.7 89-Zlj-419561:19 CHEST, PA AND LATERAL (MT) Radiology Report See Note (Normal) Comments: Exam Number: [id number] PA AND LATERAL CHEST Mild cardiomegaly appears [...] (Abnormal) Range: 9.1-11.7 :58 HgA1C , Office (85589) HgA1C , Office 5.7 % (Normal) Range: 4.6 - 7.1 :58 Blood Glucose , Office (06769) Blood Glucose , Office 119 (Normal) :39 PT/INR, Office (10519) INR 2.6 (Normal) :55 PT/INR, Office (53674) INR 2.5 (Normal) Comments: aw :01 HgA1C , Office (56663) HgA1C , Office 5.8 % (Normal) Range: 4.6 - 7.1 :01 Blood Glucose , Office (25097) Blood Glucose , Office 111 (Normal) :27 PT/INR, Office (39980) INR 2.2 (Normal) :09 PT/INR, Office (82980) INR 1.8 (Normal) :55 PT/INR, Office (32048) INR 3.3 (Normal) :51 PT/INR, Office (38229) INR 3.2 (Normal) Comments: aw 18-Sxk-609883:00 PT/INR, Office (40437) INR 2.9 (Normal) :14 PT/INR, Office (67041) INR 3.7 (Normal) :50 HgA1C , Office (94328) HgA1C , Office 5.8 % (Normal) Range: 4.6 - 7.1 :50 Blood Glucose , Office (53540) Blood Glucose , Office 119 (Normal) :03 CBC With Differential/Platelet Comments: PATIENT WAS FASTINGPERFORMED BY: LabCo Tudjec4741 [facility] [id number] Baso (Absolute) 0.0 {x10E3/uL} (Normal) Range: 0.0-0.2 [...] 11.7-15.0 WBC 7.4 {x10E3/uL} (Normal) Range: 4.0-10.5 48-Hyb-066995:03 Comp. Metabolic Panel (14) Comments: PATIENT WAS FASTINGPERFORMED BY: [facility] Bozvgq3638 [facility] [id number] A/G Ratio 1.1 (Normal) Range: 1.1-2.5 Albumin, [...] Serum 106 mg/dL (Abnormal) Range: 65-99 If -Botswanan 46 mL/min/1.73 Comments: Note: Persistent reduction for [...] With LDL/HDL Comments: PATIENT WAS FASTINGPERFORMED BY: [address] [id number] Ratio Cholesterol, Total 129 mg/dL (Normal) Range: 100-199 HDL Cholesterol 34 mg/dL (Abnormal) Comments: According to ATP-III Guidelines, HDL-C >59 mg/dL is considered anegative risk factor for CHD. LDL Cholesterol Calc 66 mg/dL (Normal) Range: 0-99 LDL/HDL Ratio 1.9 {ratio_units} (Normal) Range: 0.0-3.2 Triglycerides 144 mg/dL (Normal) Range: 0-149 VLDL Cholesterol Maricruz 29 mg/dL (Normal) Range: 5-40 57-Doi-166569:03 Microscopic Examination Comments: PATIENT WAS FASTINGPERFORMED BY: [address] [id number] Bacteria Few (Normal) Cast Type Hyaline casts (Normal) Casts Present {/lpf} (Abnormal) Crystal Type Amorphous Sediment (Normal) Crystals Present (Abnormal) Epithelial Cells (non 0-10 {/hpf} (Normal) Range: 0 - 10 renal) Mucus Threads Present (Normal) RBC 0-3 {/hpf} (Normal) Range: 0 - 3 WBC 0-5 {/hpf} (Normal) Range: 0 - 5 NTI Urine Tube (Dorsey) COMMNT (Normal) Comments: PATIENT WAS FASTINGPERFORMED BY: [facility] [place] [address] [id number] 1:03 Comments: .A urine culture transport was received with no test indicated. Iftesting is required on this specimen, please contact the [facility] Inquiry[facility]Technical Services Department to obtain a Request forWritten Authorization Form. TSH 2.526 {uIU/mL} Comments: PATIENT WAS FASTINGPERFORMED BY: [facility]6370 [facility] [id number] 1:03 (Normal) Range: 0.450-4.500 89-Ngv-659147:03 Urinalysis, Routine Comments: PATIENT WAS FASTINGPERFORMED BY: LabCoJFK Johnson Rehabilitation InstitutePbogpz1970 [facility] [id number] Appearance Clear (Normal) Bilirubin Negative (Normal) Glucose Negative (Normal) Ketones Negative (Normal) Microscopic Examination See below: (Normal) Nitrite, Urine Negative (Normal) Occult Blood Negative (Normal) pH 7.0 (Normal) Range: 5.0-7.5 Protein Negative (Normal) Specific [place] 1.008 (Normal) Range: 1.005-1.030 Urine-Color Yellow (Normal) Urobilinogen,Semi-Qn 0.2 mg/dL (Normal) Range: 0.0-1.9 WBC Esterase Trace (Abnormal) :29 PT/INR, Office (97207) INR 2.6 (Normal) Comments: aw 26-Bso-867338:16 HgA1C , Office (01126) HgA1C , Office 6.1 % (Normal) Range: 4.6 - 7.1 20-Ksh-559611:16 Blood Glucose , Office (78692) Blood Glucose , Office 186 (Normal) 75-Iwx-792936:16 PT/INR, Office (76350) INR 2.8 (Normal) :49 BILAT SCRN DIGITAL & CAD Radiology Report See Note (Normal) Comments: Exam Number: [id number] MAMMOGRAM, BILATERAL SCREENING DIGITAL AND CAD HISTORYRoutine [...] mammograms werealso examined with computer-aided detection software ([employer], [employer] Reported By: ELAINE NIEVES M.D. :37 PT/INR, Office (10063) INR 2.4 (Normal) :00 PT/INR, Office (76656) INR 1.9 (Normal) PT (PROTHROMBIN TIME) INR - 1.9 s (Normal) Range: 11.5-13.5 :18 DEXA BONE DENSITY/APPEND SKEL Radiology Report See Note (Normal) Comments: Exam Number: [id number] BONE DENSITOMETRY/APPENDICULAR SKELETON HISTORYOsteopenia. TECHNIQUE Bone densitometry [...] of osteopenia. Reported By: ELAINE NIEVES M.D. 70-Rlf-908884:08 PT/INR, Office (65202) INR 2.0 (Normal) 59-Bmm-995199:08 HgA1C , Office (52216) HgA1C , Office 6.3 % (Normal) Range: 4.6 - 7.1 27-Oio-079191:08 Blood Glucose , Office (44260) Blood Glucose , Office 177 (Normal) :13 [...] (Normal) PROTIME 28.9 s (Abnormal) Range: 10.6-13.2 96-Yel-177410:08 PRO TIME INR 3.4 (Normal) PROTIME 36.9 s (Abnormal) Range: 10.6-13.2 11-Pht-424521:20 PRO TIME INR 2.1 (Normal) PROTIME 23.9 s (Abnormal) Range: 10.6-13.2 :39 PRO TIME INR 3.1 (Normal) PROTIME 33.5 s (Abnormal) Range: 10.6-13.2 :22 HgA1C , Office (74834) HgA1C , Office 6.1 % (Normal) Range: 4.6 - 7.1 :22 Blood Glucose , Office (48077) Blood Glucose , Office 105 (Normal) :34 [...] s (Abnormal) Range: 10.6-13.2 :35 PT/INR, Office (29060) INR 2.7 (Normal) :56 HgA1C , Office (60297) HgA1C , Office 5.8 % (Normal) Range: 4.6 - 7.1 :56 Blood Glucose , Office (15853) Blood Glucose , Office 103 (Normal) :28 PRO TIME INR 2.8 (Normal) PROTIME 30.7 s (Abnormal) Range: 10.6-13.2 :55 PRO TIME INR 2.1 (Normal) PROTIME 24.0 s (Abnormal) Range: 10.6-13.2 :05 PT/INR, Office (09654) INR 2.5 (Normal) :05 Blood Glucose , Office (99488) Blood Glucose , Office 100 (Normal) :05 HgA1C , Office (64704) HgA1C , Office 6.2 % (Normal) Range: 4.6 - 7.1 :10 [facility] DIGITAL & CAD Radiology Report See Note (Normal) Comments: Exam Number: [id number] DIGITAL SCREENING MAMMOGRAPHY WITH CAD COMPARISON STUDYDated [...] werealso examined with computer- aided detection software ([employer] Reported By: MAO KURTZ M.D. :49 PRO TIME INR 2.5 (Normal) PROTIME 27.8 s (Abnormal) Range: 10.6-13.2 :13 PRO TIME INR 2.7 (Normal) PROTIME 29.7 s (Abnormal) Range: 10.6-13.2 :14 PRO TIME INR 2.2 (Normal) PROTIME 24.3 s (Abnormal) Range: 10.6-13.2 :26 PT/INR, Office (22928) INR 2.5 (Normal) PT (PROTHROMBIN TIME) INR 2.5 s (Normal) Range: 11.5-13.5 :25 HgA1C , Office (09697) HgA1C , Office 6.0 % (Normal) Range: 4.6 - 7.1 :25 Blood Glucose , Office (69064) Blood Glucose , Office 108 (Normal) :20 [...] Note Reference Interval Change :22 PT/INR, Office (38921) Comments: done- same dose recheck in 2 weeks-- alternate 4/5 INR 2.3 (Normal) :22 HgA1C , Office (87030) Comments: done HgA1C , Office 5.9 % (Normal) Range: 4.6 - 7.1 :21 Blood Glucose , Office (96931) Comments: done Blood Glucose , Office 101 [...] s (Abnormal) Range: 11.7-13.3 :50 PT/INR, Office (00625) INR 1.9 (Normal) PT (PROTHROMBIN TIME) 16.9 s (Abnormal) Range: 11.5-13.5 :50 HgA1C , Office (65610) HgA1C , Office 6.0 % (Normal) Range: 4.6 - 7.1 :50 Blood Glucose , Office (60211) Blood Glucose , Office 95 (Normal) :59 [...] (Abnormal) Range: 11.7-13.3 :40 HgA1C , Office (30818) HgA1C , Office 5.7 % (Normal) Range: 4.6 - 7.1 :40 Blood Glucose , Office (39507) Blood Glucose , Office 115 (Normal) Plan of Care Name Dates Details Instructions Anasarca : Follow up in 3 months Indication: Anasarca Iron deficiency anemia : Reviewed Keg Raiser Letter Indication: Iron deficiency anemia Valvular disease : Reviewed Keg Raiser Letter Indication: Valvular disease Lower GI bleed : Reviewed Lab Indication: Lower GI bleed Lower GI bleed : Reviewed Keg Raiser Letter Indication: Lower GI bleed Essential hypertension with goal blood pressure less than 130/80 : Reviewed Keg Raiser Letter Indication: Essential hypertension with goal blood [...] : Follow up in 2 weeks with [facility] SaturdayNovember 20 Indication: Cough Cough : [...] : FOLLOW UP IN 1 WEEK with [facility] Indication: Atrial fibrillation Mixed dyslipidemia : Diet, Exercise, and Wt loss Indication: Mixed dyslipidemia Cough : MDI Education Indication: Cough Mixed dyslipidemia : FOLLOW UP IN 2 MONTHS Indication: Mixed dyslipidemia FOLLOW UP IN 3 MONTHS Planned Observations Metabolic Panel, Comprehensive (49806)Indication: CKD (chronic kidney disease), stage III On: :09 Request CBC & PLATELETS (AUTO) (21947)Indication: Lower GI bleed On: :08 Request PT (PROTHROMBIN TIME) ([id number])Indication: Lower GI bleed On: :08 Request Metabolic Panel, Basic (24182)Indication: Shortness of breath On: :58 Request CBC, Platelets & Auto Diff (27469)Indication: Shortness of breath On: :55 Request BNTP ([id number])Indication: Shortness of breath On: :55 Request BNTP (88902)Indication: Acute CHF On: 2-Pid-891848:18 Request METABOLIC PANEL, COMPREHENSIVE (35722)Indication: Acute CHF On: 3-Gbn-337335:18 Request CBC & PLATELETS (AUTO) (15971)Indication: Acute CHF On: 5-Rjw-392429:18 Request FERRITIN (23630)Indication: Iron deficiency anemia On: 9-Wah-581595:22 Request IRON BINDING CAPACITY (TIBC) (21690)Indication: Iron deficiency anemia On: 6-Hwb-302034:22 Request IRON ([id number])Indication: Iron deficiency anemia On: 0-Nsg-526000:22 Request IRON & TOTAL IRON BINDING CAPACITY (52425)Indication: Iron deficiency anemia On: 1-Iyb-545633:22 Request LIPID PANEL (74955)Indication: Diabetes mellitus type II, controlled On: 5-Eup-318235:20 Request Metabolic Panel, Comprehensive ([id number])Indication: Acute renal failure On: 1-Ryi-462999:19 Request PT (Prothrobim Time) (45112)Indication: Walking pneumonia On: 36-Aet-487407:20 Request PT (PROTHROMBIN TIME) ([id number])Indication: Atrial fibrillation On: 03-May-2017 Request Comments: Standing order Ferritin (10028)Indication: Anemia, unspecified On: 42-Qnx-096343:45 Request Iron (73086)Indication: Anemia, unspecified On: :45 Request CBC WITH MANUAL DIFF (58845)Indication: Anemia, unspecified On: :45 Request CBC, Platelets & Auto Diff (73625)Indication: Lower GI bleed On: :40 Request Comments: Week of February 25, give lab slip HgA1C , Office (76240)Indication: Diabetes mellitus type II, controlled On: : Request Blood Glucose , Office (41677)Indication: Diabetes mellitus type II, controlled On: :26 Request FERRITIN (75701)Indication: Anemia, unspecified On: :26 Request HGB (HEMOGLOBIN) (41478)Indication: Lower GI bleed On: :44 Request MAGNESIUM (20322)Indication: Acute renal failure On: :11 Request Comments: to be done around January 14 Metabolic Panel, Comprehensive (78531)Indication: Acute renal failure On: :06 Request Comments: to be done at [place] 01-14 CBC & PLATELETS (AUTO) (47375)Indication: Acute renal failure On: :06 Request Comments: to be done at [place] on 01-14 URINE SIOBHAN CULTURE-IDENTIFICATN (61556)Indication: Acute renal failure On: 8-Kwo-303632:55 Request URINALYSIS (24902)Indication: Acute renal failure On: :51 Request Comments: December 25 Renal function Panel (37889)Indication: Acute renal failure On: :51 Request Comments: December 25 METABOLIC PANEL, BASIC (10023)Indication: Abnormal blood finding On: :00 Request CBC, PLATELETS & AUT DIFF (28405)Indication: Abnormal blood finding On: :00 Request Metabolic Panel, Basic (38171)Indication: Abnormal blood finding On: 1-Ivk-969484:01 Request Comments: stat CBC WITH MANUAL DIFF ([id number])Indication: Abnormal blood finding On: :17 Request CBC, Platelets & Auto Diff (70427)Indication: Iron deficiency anemia On: 58-Iib-440512:15 Request PT (PROTHROMBIN TIME) (15134)Indication: Atrial fibrillation On: 5-Ibf-798918:36 Request Comments: standing order FERRITIN ([id number])Indication: Restless leg syndrome On: :32 Request IRON & TOTAL IRON BINDING CAPACITY (42713)Indication: Restless leg syndrome On: :32 Request MICROALBUMIN: CREATININE RATIO (87098) AND ([id number])Indication: Restless leg syndrome On: :32 Request VITAMIN B12 AND FOLATES (27263)Indication: Restless leg syndrome On: : Request CALCIFEDIOL (35645)Indication: Restless leg syndrome On: : Request TSH (THYROID STIMULATING HORMONE) (23330)Indication: Restless leg syndrome On: :32 Request LIPID PANEL (06528)Indication: Mixed dyslipidemia On: :32 Request METABOLIC PANEL, COMPREHENSIVE (27747)Indication: BMI 45.0-49.9, adult On: :32 Request CBC, PLATELETS & AUT DIFF ([id number])Indication: BMI 45.0-49.9, adult On: :32 Request FERRITIN ([id number])Indication: Iron deficiency anemia On: :20 Request IRON & TOTAL IRON BINDING CAPACITY (47540)Indication: Iron deficiency anemia On: :20 Request LIPID PANEL (49260)Indication: Mixed dyslipidemia On: :20 Request TSH (THYROID STIMULATING HORMONE) ([id number])Indication: Mild vitamin D deficiency On: :19 Request VITAMIN B12 AND FOLATES (27675)Indication: Mild vitamin D deficiency On: :19 Request CALCIFEDIOL (47977)Indication: Mild vitamin D deficiency On: :19 Request METABOLIC PANEL, COMPREHENSIVE ([id number])Indication: Diabetes mellitus type 2, uncontrolled, without complications On: :19 Request CBC, PLATELETS & AUT DIFF ([id number])Indication: Diabetes mellitus type 2, uncontrolled, without complications On: Request LDH (LD) (LACTATE DEHYDROGENASE) (68591)Indication: Anemia, unspecified On: Request FOLIC ACID SERUM (42523)Indication: Anemia, unspecified On: Request SPEP ([id number])Indication: Anemia, unspecified On: Request UPEP (52496)Indication: Anemia, unspecified On: Request FERRITIN (76981)Indication: Anemia, unspecified On: Request IRON (70015)Indication: Anemia, unspecified On: Request VITAMIN B-12 (CYANOCOBALAMIN) (57862)Indication: Anemia, unspecified On: Request ATSNT-IUHAOTWDABE-SLGZJ (40335)Indication: Other chronic nonalcoholic liver disease On: Request CBC with auto diff ([id number])Indication: Essential hypertension with goal blood pressure less than 130/80 On: Request HGB A1C (36663)Indication: Diabetes mellitus type II, controlled On: Request MICROALBUMIN: CREATININE RATIO (87439) AND ([id number])Indication: Diabetes mellitus type II, controlled On: Request LIPID PANEL (52599)Indication: Mixed dyslipidemia On: Request Metabolic Panel, Basic (03723)Indication: Diabetes mellitus type 2, uncontrolled, without complications On: Request MICROALBUMIN: CREATININE RATIO (90607) AND ([id number])Indication: Diabetes mellitus type II, controlled On: : Request METABOLIC PANEL, COMPREHENSIVE (09965)Indication: Diabetes mellitus type II, controlled On: : Request LIPID PANEL (19764)Indication: Mixed dyslipidemia On: Request CBC (AUTO) ([id number])Indication: Anemia, unspecified On: 59 Request Vitamin D Hydroxy (21581)Indication: Mild vitamin D deficiency On: 76-Tiq-94240:59 Request OINPV-NXWWFOPPICO-MQWCH ([id number])Indication: Other chronic nonalcoholic liver disease On: :57 Request CBC with auto diff (65839)Indication: Pulmonary hypertension On: :50 Request Hemoglobin Glyclated (HGB A1C) (16905)Indication: Diabetes mellitus type II, controlled On: :50 Request METABOLIC PANEL, COMPREHENSIVE (95723)Indication: Essential hypertension with goal blood pressure less than 130/80 On: :49 Request LIPID PANEL (65919)Indication: Mixed dyslipidemia On: :49 Request LIPID PANEL (73233)Indication: Diabetes mellitus type II, controlled On: :49 Request HEPATIC FUNCTION PANEL (54392)Indication: Diabetes mellitus type II, controlled On: :49 Request Vitamin D Hydroxy (04834)Indication: Mild vitamin D deficiency On: :30 Request METABOLIC PANEL, COMPREHENSIVE (47716)Indication: Diabetes mellitus type II, controlled On: :30 Request LIPID PANEL (89931)Indication: Mixed dyslipidemia On: :30 Request XSZLS-YSCGZRGYGBT-AOODK ([id number])Indication: Other chronic nonalcoholic liver disease On: :29 Request CBC with auto diff (06074)Indication: Anemia, unspecified On: :29 Request MICROALBUMIN: CREATININE RATIO (39658) AND ([id number])Indication: Diabetes mellitus type II, controlled On: :24 Request METABOLIC PANEL, COMPREHENSIVE (59343)Indication: Essential hypertension with goal blood pressure less than 130/80 On: :24 Request Vitamin D Hydroxy (27233)Indication: Mild vitamin D deficiency On: :24 Request LIPID PANEL ([id number])Indication: Mixed dyslipidemia On: :24 Request LDH (LD) (LACTATE DEHYDROGENASE) (09593)Indication: Anemia, unspecified On: :24 Request VITAMIN B-12 (CYANOCOBALAMIN) ([id number])Indication: Anemia, unspecified On: :24 Request IRON BINDING CAPACITY (TIBC) ([id number])Indication: Anemia, unspecified On: :24 Request FERRITIN (70245)Indication: Anemia, unspecified On: :24 Request IRON (68753)Indication: Anemia, unspecified On: :24 Request CBC W/AUTO DIFF WBC (68356)Indication: Anemia, unspecified On: :24 Request LIPID PANEL (30756)Indication: Mixed dyslipidemia On: : Request METABOLIC PANEL, COMPREHENSIVE (24612)Indication: Essential hypertension with goal blood pressure less than 130/80 On: :02 Request CBC (AUTO) (80051)Indication: Anemia, unspecified On: : Request Vitamin D Hydroxy (58966)Indication: Mild vitamin D deficiency On: : Request TNUKF-FKDTOEGMEIZ-HSVBY (63701)Indication: Other chronic nonalcoholic liver disease On: : Request PTT (Activated Partial Thromboplastin Time) ([id number])Indication: Other chronic nonalcoholic liver disease On: : Request PT (Prothrobim Time) ([id number])Indication: Other chronic nonalcoholic liver disease On: : Request PT (Prothrobim Time) ([id number])Indication: Atrial fibrillation On: :28 Request Comments: STANDING ORDER CBC WITH MANUAL DIFF (09409)Indication: Anemia, unspecified On: :53 Request LIPID PANEL (53271)Indication: Mixed dyslipidemia On: :53 Request MICROALBUMIN: CREATININE RATIO (83728) AND ([id number])Indication: Diabetes mellitus type II, controlled On: 02-Lai-053590:52 Request METABOLIC PANEL, COMPREHENSIVE (36024)Indication: Diabetes mellitus type II, controlled On: 57-Vww-599707:52 Request Vitamin D Hydroxy (67341)Indication: Mild vitamin D deficiency On: :52 Request Vitamin D Hydroxy (49341)Indication: Mild vitamin D deficiency On: :13 Request LIPID PANEL (86800)Indication: Mixed dyslipidemia On: :12 Request URIC ACID BLOOD (76609)Indication: Gout On: :12 Request WJBNO-QXGGCDWVDFV-ZOIYH ([id number])Indication: Other chronic nonalcoholic liver disease On: :12 Request PTT (Activated Partial Thromboplastin Time) ([id number])Indication: Other chronic nonalcoholic liver disease On: :12 Request METABOLIC PANEL, COMPREHENSIVE (87612)Indication: Essential hypertension with goal blood pressure less than 130/80 On: :12 Request CBC WITH MANUAL DIFF ([id number])Indication: Anemia, unspecified On: 94-Vbi-801649:11 Request PT (Prothrobim Time) ([id number])Indication: Atrial fibrillation On: 52-Mht-399489:59 Request Comments: STANDING ORDER HEPATIC FUNCTION PANEL (97858)Indication: Mixed dyslipidemia On: 00-Sgn-169661:56 Request CBC WITH MANUAL DIFF (39890)Indication: Gout On: :08 Request LIPID PANEL (70472)Indication: Mixed dyslipidemia On: :08 Request METABOLIC PANEL, COMPREHENSIVE (27646)Indication: Diabetes mellitus type II, controlled On: 27-Ivg-202085:08 Request MICROALBUMIN: CREATININE RATIO (82690) AND ([id number])Indication: Diabetes mellitus type II, controlled On: :08 Request Metabolic Panel, Basic ([id number])Indication: Hyperkalemia On: 97-Jmg-537176:40 Request PT (Prothrobim Time) ([id number])Indication: Atrial fibrillation On: 0-Rnh-875619:35 Request LIPID PANEL (88151)Indication: Mixed dyslipidemia On: 71-Xfw-851975:34 Request METABOLIC PANEL, COMPREHENSIVE ([id number])Indication: Diabetes mellitus type II, controlled On: 64-Sbr-512884:33 Request MICROALBUMIN: CREATININE RATIO (50353) AND ([id number])Indication: Diabetes mellitus type II, controlled On: :33 Request CBC WITH MANUAL DIFF ([id number])Indication: Anemia, unspecified On: 56-Yzj-875267:33 Request CBC WITH MANUAL DIFF ([id number])Indication: Anemia, unspecified On: 74-Afs-485185:07 Request METABOLIC PANEL, COMPREHENSIVE ([id number])Indication: Renal insufficiency (Renamed from Renal function impairment) On: :06 Request MICROALBUMIN: CREATININE RATIO (03020) AND ([id number])Indication: Diabetes mellitus type II, controlled On: :06 Request LIPID PANEL (87031)Indication: Mixed dyslipidemia On: 34-Juz-846405:06 Request UGFIL-AFVKBBTRVZG-OEWJU ([id number])Indication: Other chronic nonalcoholic liver disease On: :06 Request Vitamin D Hydroxy (60038)Indication: Mild vitamin D deficiency On: :05 Request Vitamin D Hydroxy (19691)Indication: Mild vitamin D deficiency On: 57-Gsx-391563:08 Request FLURESCNT ANTIB SCRN EA (05694) celiac profileIndication: Anemia, unspecified On: :08 Request IGA/IGD/IGG/IGM-EACH (24833) celiac profileIndication: Anemia, unspecified On: :08 Request IMMUNOASSAY, ANALYTE (NON-INFECT) (57399) celiac profileIndication: Anemia, unspecified On: 48-Pjg-640328:08 Request METABOLIC PANEL, COMPREHENSIVE (49936)Indication: Diabetes mellitus type 2, uncontrolled, without complications On: 22-Dad-506510:06 Request CBC with manual diff ([id number])Indication: Anemia, unspecified On: 60-Hiq-273895:49 Request Iron Binding Capacity (TIBC) (57848)Indication: Anemia, unspecified On: 37-Zhs-911033:49 Request Iron ([id number])Indication: Anemia, unspecified On: :49 Request Ferritin (65408)Indication: Anemia, unspecified On: 20-Mgk-014376:49 Request Metabolic Panel, Basic (63306)Indication: Abnormal blood chemistry On: :09 Request LIPID PANEL (63243)Indication: Mixed dyslipidemia On: 19-Psm-736763:02 Request Metabolic Panel, Basic (66321)Indication: Renal insufficiency (Renamed from Renal function impairment) On: 08-Izd-377641:01 Request IRON ([id number])Indication: Anemia, unspecified On: 27-Fvt-763566:32 Request Vitamin D Hydroxy (72594)Indication: Mild vitamin D deficiency On: 08-Jei-062677:49 Request LIPID PANEL (49852)Indication: Mixed dyslipidemia On: 38-Hce-569494:48 Request CBC WITH MANUAL DIFF ([id number])Indication: Anemia, unspecified On: 98-Cke-031787:48 Request METABOLIC PANEL, COMPREHENSIVE (68393)Indication: Abnormal glucose tolerance test On: 77-Cey-935212:48 Request MICROALBUMIN: CREATININE RATIO (37289) AND (91708)Indication: Abnormal glucose tolerance test On: :48 Request CALCIFEDIOL (14523)Indication: Mild vitamin D deficiency On: 4-Neg-021181:16 Request LIPID PANEL (05849)Indication: Mixed dyslipidemia On: 3-Unb-884152:16 Request METABOLIC PANEL, COMPREHENSIVE (81367)Indication: Mixed dyslipidemia On: 2-Xht-461232:16 Request URINALYSIS (66291)Indication: Essential hypertension with goal blood pressure less than 130/80 On: 9-Hrh-229579:16 Request CBC with manual diff (95783)Indication: Essential hypertension with goal blood pressure less than 130/80 On: 2-Pgs-223673:16 Request LDH (LD) (LACTATE DEHYDROGENASE) (50653)Indication: Essential hypertension with goal blood pressure less than 130/80 On: 4-Znl-668714:16 Request Iron (87130)Indication: Essential hypertension with goal blood pressure less than 130/80 On: 7-Sgg-379142:16 Request Ferritin (48451)Indication: Essential hypertension with goal blood pressure less than 130/80 On: 7-Fkb-950364:16 Request URIC ACID BLOOD ([id number])Indication: Gout On: 46-Tpy-730820:49 Request LDH (LD) (LACTATE DEHYDROGENASE) (63059)Indication: Anemia, unspecified On: 34-Auq-870864:26 Request URIC ACID BLOOD (81643)Indication: Gout On: 8-Xny-981493:19 Request URIC ACID BLOOD (52582)Indication: Gout On: 7-Yop-766821:16 Request TSH (THYROID STIMULATING HORMONE) (34845)Indication: Mixed dyslipidemia On: :29 Request URINALYSIS (70509)Indication: Mixed dyslipidemia On: 22-Pkz-875145:28 Request LIPID PANEL (86576)Indication: Mixed dyslipidemia On: :27 Request CBC, PLATELETS & AUT DIFF ([id number])Indication: Mixed dyslipidemia On: :18 Request METABOLIC PANEL, COMPREHENSIVE (45105)Indication: Mixed dyslipidemia On: :17 Request CALCIFEDIOL (73348)Indication: Mild vitamin D deficiency On: :16 Request HgA1C , Office (49659)Indication: Abnormal glucose tolerance test On: :59 Request METABOLIC PANEL, BASIC (57371)Indication: Atrial fibrillation On: :30 Request METABOLIC PANEL, BASIC (65771)Indication: Atrial fibrillation On: :59 Request CBC WITH MANUAL DIFF ([id number])Indication: Atrial fibrillation On: :11 Request METABOLIC PANEL, COMPREHENSIVE (34404)Indication: Other chronic nonalcoholic liver disease On: :10 Request LIPID PANEL (00273)Indication: Mixed dyslipidemia On: :10 Request LIPID PANEL (61443)Indication: Mixed dyslipidemia On: :11 Request CBC WITH MANUAL DIFF ([id number])Indication: Abnormal glucose tolerance test On: 4-Mcg-147897:11 Request MICROALBUMIN: CREATININE RATIO (97046) AND (81323)Indication: Abnormal glucose tolerance test On: 4-Kys-706054:11 Request Vitamin D Hydroxy ([id number])Indication: Mild vitamin D deficiency On: :11 Request METABOLIC PANEL, COMPREHENSIVE (61537)Indication: Other chronic nonalcoholic liver disease On: :10 Request METABOLIC PANEL, COMPREHENSIVE (56653)Indication: Abnormal glucose tolerance test On: 56-Tiv-005508:10 Request MICROALBUMIN: CREATININE RATIO (89971) AND (01691)Indication: Abnormal glucose tolerance test On: 70-Dzj-510831:10 Request LIPID PANEL (17557)Indication: Mixed dyslipidemia On: 91-Zrm-771011:10 Request Vitamin D Hydroxy (76485)Indication: Osteopenia On: 18-Gpq-671608:10 Request LIPID PANEL (52675)Indication: Mixed dyslipidemia On: 44-Maq-763349:48 Request Vitamin D Hydroxy (29011)Indication: Mild vitamin D deficiency On: :48 Request CBC WITH MANUAL DIFF (38194)Indication: Abnormal glucose tolerance test On: :47 Request METABOLIC PANEL, COMPREHENSIVE (57873)Indication: Abnormal glucose tolerance test On: 51-Mfe-521693:47 Request LIPID PANEL (68040)Indication: Mixed dyslipidemia On: 32-Fjo-218575:39 Request METABOLIC PANEL, COMPREHENSIVE (56339)Indication: Hypercalcemia On: 13-Tvg-417708:38 Request Vitamin D Hydroxy (47998)Indication: Mild vitamin D deficiency On: :38 Request CBC (AUTO) (57302)Indication: Abnormal glucose tolerance test On: 06-Gpi-715430:28 Request Vitamin D Hydroxy (07740)Indication: Osteopenia On: :28 Request CBC WITH MANUAL DIFF (07506)Indication: Essential hypertension with goal blood pressure less than 130/80 On: 80-Zpw-157179:28 Request MICROALBUMIN: CREATININE RATIO (04581) AND (22130)Indication: Abnormal glucose tolerance test On: :28 Request METABOLIC PANEL, COMPREHENSIVE (27154)Indication: Hypercalcemia On: 01-Spe-992993:27 Request Vitamin D Hydroxy (06259)Indication: Osteopenia On: 29-Kbk-337570:34 Request Metabolic Panel, Basic (59119)Indication: Hyperkalemia On: 37-Yom-365472:04 Request Comments: 1 week LIPID PANEL (23158)Indication: Mixed dyslipidemia On: 01-Uhu-296845:34 Request TSH ([id number])Indication: Essential hypertension with goal blood pressure less than 130/80 On: 27-Vmh-188143:34 Request CBC WITH MANUAL DIFF (52900)Indication: Essential hypertension with goal blood pressure less than 130/80 On: 66-Nta-849772:34 Request METABOLIC PANEL, COMPREHENSIVE (10621)Indication: Abnormal glucose tolerance test On: 83-Pln-289356:34 Request PT/INR, Office (98373)Indication: Atrial fibrillation On: :55 Request PT/INR, Office (78619)Indication: Atrial fibrillation On: 7-Zae-253502:36 Request PT (Prothrobim Time) (56253)Indication: Atrial fibrillation On: :58 Request METABOLIC PANEL, COMPREHENSIVE (65606)Indication: Essential hypertension with goal blood pressure less than 130/80 On: :09 Request CBC WITH MANUAL DIFF ([id number])Indication: Essential hypertension with goal blood pressure less than 130/80 On: 03-Rdd-513621:09 Request MICROALBUMIN: CREATININE RATIO (12109) AND (20506)Indication: Abnormal glucose tolerance test On: :09 Request HEPATIC FUNCTION PANEL (55027) On: 47-Okm-572365:07 Request LIPID PANEL (00137)Indication: Mixed dyslipidemia On: :07 Request PT/INR, Office (51400)Indication: Atrial fibrillation On: 83-Ktz-633333:19 Request Comments: done>Wf. PT/INR, Office (40486)Indication: Atrial fibrillation On: 05-Eqk-497679:30 Request METABOLIC PANEL, COMPREHENSIVE (55858)Indication: Essential hypertension with goal blood pressure less than 130/80 On: 19-Fac-988160:34 Request CBC WITH MANUAL DIFF ([id number])Indication: Essential hypertension with goal blood pressure less than 130/80 On: 28-Lvi-131896:34 Request HEPATIC FUNCTION PANEL (46047)Indication: Mixed dyslipidemia On: 61-Ope-393289:34 Request LIPID PANEL (07406)Indication: Mixed dyslipidemia On: 99-Amy-804853:34 Request LIPID PANEL (87515)Indication: Mixed dyslipidemia On: 40-Wzg-196685:51 Request URINALYSIS W/O MICRO ([id number])Indication: Essential hypertension with goal blood pressure less than 130/80 On: 70-Exm-845518:51 Request TSH ([id number])Indication: Essential hypertension with goal blood pressure less than 130/80 On: 76-Rof-728781:51 Request CBC WITH MANUAL DIFF (46892)Indication: Essential hypertension with goal blood pressure less than 130/80 On: 33-Umr-661863:51 Request METABOLIC PANEL, COMPREHENSIVE (05769)Indication: Essential hypertension with goal blood pressure less than 130/80 On: 55-Aly-314830:51 Request TSH ([id number])Indication: Essential hypertension with goal blood pressure less than 130/80 On: 16-Pxt-568387:44 Request METABOLIC PANEL, COMPREHENSIVE ([id number])Indication: Essential hypertension with goal blood pressure less than 130/80 On: [id number] Request CBC WITH MANUAL DIFF ([id number])Indication: Essential hypertension with goal blood pressure less than 130/80 On: 86-Mcx-236013:44 Request MICROALBUMIN URINE QUANT ([id number])Indication: Abnormal glucose tolerance test On: :59 Request METABOLIC PANEL, COMPREHENSIVE ([id number])Indication: Abnormal glucose tolerance test On: :57 Request CBC WITH MANUAL DIFF ([id number])Indication: Abnormal glucose tolerance test On: :57 Request LIPID PANEL ([id number])Indication: Mixed dyslipidemia On: :56 Request HEPATIC FUNCTION PANEL ([id number])Indication: Mixed dyslipidemia On: :56 Request HEPATIC FUNCTION PANEL ([id number])Indication: Mixed dyslipidemia On: :11 Request LIPID PANEL ([id number])Indication: Mixed dyslipidemia On: [id number]-Tnn-[id number]:11 Request Planned Encounters Medical; 3 Month FU - On: 10-Sep-2018 9:15 [facility] Sara Swartz CNP, CNP, Mary E Planned Procedures Aerosol Treatment ([id number])By: On: 08-Aug-2017 Intent Kaykay Layne Comments: Exp wheeze still heard after aerosol treatment-better air exchange though. 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, 2 Gram On: 06-Aug-2017 Intent ([id number])By: Kaykay Layne CHEST XRAY, PA & LATERAL On: 06-Aug-2017 Intent ([id number])By: Kaykay Layne Aerosol Treatment ([id number])By: On: 06-Aug-2017 Intent Kaykay Layne RIGHT BREAST ULTRASOUND ([id number])By: On: 26-Jul-2017 Intent Sara Swartz CNP, CNP, Mary E SCREENING DIGITAL TOMOSYNTHESIS OF On: 20-May-2017 Intent BREAST ([id number])By: Sara Swartz CNP, CNP, Mary E Flu Vaccine (Quadrivalent) On: 20-May-2017 Intent 51486Gg: Sara Swartz CNP Comments: Lot:[id number]:11/2017Dose:0.5mLRoute:IMSite:L DltdGiven By:mlVIS signed Sara HENRY MAMMOGRAM, SCREENING, BOTH BREAST On: 26-Jun-2016 Intent ([id number])By: Jacinto Sheehan MD DEXA SCAN AXIAL SKELETON On: 27-Mar-2016 Intent ([id number])By: Jacinto Sheehan MD Ultrasound - LiverBy: Jarad RUIZ, On: 19-Dec-2015 Intent Brittany Caro PNEUM VAC ADLT/IMUMNOSPR, On: 05-Jul-2015 Intent SBC/INTRM ([id number])By: Raghu Downing Comments: PNEUMOlot:[id number]:1*13*17site:LT deltoidroute:IMdose:.5mlDEMICK, SMA MAMMOGRAM, SCREENING, BOTH BREAST On: 15-Jun-2015 Intent ([id number])By: Brittany Abraham DO Cartoid DopplerBy: Brittany Abraham DO On: 15-Jun-2015 Intent A Flu Vaccine (Quadrivalent) On: 15-Jun-2015 Intent [id number]: Brittany Abraham DO Comments: Lot #:[id number] date: 01/2016Amount given:prefilled syringeSite given:L Dltd, IMGiven by: AYAKA Morris and ABN signed ADMINISTRATION OF INFLUENZA VIRUS On: 15-Jun-2015 Intent VACCINE ([id number])By: Brittany Abraham DO Overnight Pulse OX ([id number])By: Jarad On: 18-Mar-2015 Intent Brittany RUIZ PFT - CompleteBy: Brittany Abraham DO On: 18-Mar-2015 Intent Radiology - Knee - Right - Weight On: 28-Jun-2014 Intent BearingBy: Brittany Abraham DO Radiology - Knee - Left - Weight On: 28-Jun-2014 Intent BearingBy: Brittany Abraham DO Prevnar 13 ([id number])By: Jarad RUIZ, On: 08-Jun-2014 Intent Brittany Caro Comments: [id number] arm, IMMegan MAMMOGRAM, SCREENING, BOTH BREAST On: 08-Jun-2014 Intent ([id number])By: Brittany Abraham DO Comments: end jul Ultrasound - LiverBy: Jarad RUIZ, On: 08-Dec-2013 Intent Brittany Caro Inhaler Demonstration ([id number])By: On: 20-Nov-2013 Intent Tia HENRY, Magaly Tia HENRY, Sara Mc Aerosol Treatment ([id number])By: Tai On: 20-Nov-2013 Intent Sara HENRY E Sara Swartz CNP Radiology - ChestBy: Miltongordo CARL, On: 04-Nov-2013 Intent Sara Bear CNP Comments: To be Done satNovember 18 Aerosol Treatment ([id number])By: Tia On: 03-Nov-2013 Intent Sara HENRY CNP, Mary E Radiology - ChestBy: Tia HENRY, On: 03-Nov-2013 Intent [facility] Bear CNP Comments[facility] E[facility] prescriptions On: 08-Sep-2013 Intent ([id number])By: Ariane Hartman MAMMOGRAM, SCREENING, BOTH BREASTS On: 01-May-2013 Intent ([id number])By: Brittany Abraham DO Comments: jul DXA, BONE DENSITY, AXIAL SKELETON On: 01-May-2013 Intent ([id number])By: Brittany Abraham DO Comments: jul FLU VAC, SPLIT, >3 YEARS, On: 01-May-2013 Intent INTRAMUSC ([id number])By: Minnie, Comments: Lot #:[id number] date:mount given:0.5mlRoute: IMSite given: L dltdVIS and ABN signedGiven by: LILY Payton ADMINISTRATION OF INFLUENZA VIRUS On: 01-May-2013 Intent VACCINE (G0008)By: Ariane Hartman Eprescribed prescriptions On: 01-May-2013 Intent ([id number])By: Ariane Hartman Eprescribed prescriptions On: 30-Jan-2013 Intent ([id number])By: Ariane Hartman Eprescribed prescriptions On: 31-Oct-2012 Intent ([id number])By: Ariane Hartman Eprescribed prescriptions On: 28-Jul-2012 Intent ([id number])By: Ariane Hartman MAMMOGRAM, SCREENING, BOTH BREASTS On: 07-Jul-2012 Intent ([id number])By: Brittany Abraham DO Eprescribed prescriptions On: 07-Apr-2012 Intent (G8553)By: Ariane Hartman TDAP VACCINE >7 IM ([id number])By: On: 03-Dec-2011 Intent Ariane Hartman Comments: Lot:[id number]:07/12/13Amt:prefilledRoute:IMSite:left deltGiven By: THERESA Hinson Doppler Ultrasound OtherBy: Fast On: 03-Dec-2011 Intent Brittany RUIZ Comments: both legs stat call wet read Breast Screening - BilateralBy: On: 08-Jun-2011 Intent Brittany Abraham DO FLU VAC, SPLIT, >3 YEARS, On: 05-Jun-2011 Intent INTRAMUSC ([id number])By: Minnie, Comments: Lot #:[id number] date:mount given:0.5mlRoute: IMSite given:left deltGiven by: LILY Payton ADMINISTRATION OF INFLUENZA VIRUS On: 05-Jun-2011 Intent VACCINE (G0008)By: Ariane Hartman Eprescribed prescriptions On: 14-Feb-2011 Intent (G8553)By: Brittany Abraham DO IMMUNIZ ADMNIN, 1 VAC, SNGL/COMBO On: 30-Nov-2010 Intent (00440)By: Mona Merritt LPN Comments: Lot #[id number]-01/02/12Site- left arnDose 0.7given by:Eveline ZOSTER VACC, [place] ([id number])By: René On: 30-Nov-2010 Intent Mona CARDENAS ADMINISTRATION OF INFLUENZA VIRUS On: 23-May-2010 Intent VACCINE (G0008)By: Ailyn Jones RN FLU VAC, SPLIT, >3 YEARS, On: 23-May-2010 Intent INTRAMUSC ([id number])By: Robert ROYAL, Comments: Lot #: [id number] date: mount given: 0.5 mlRoute: IMSite given: left deltoidGiven by: LELE Nguyen DXA, BONE DENSITY, AXIAL SKELETON On: 09-May-2010 Intent ([id number])By: Brittany Abraham DO Comments: nov MAMMOGRAM, SCREENING, BOTH BREASTS On: 09-May-2010 Intent ([id number])By: Brittany Abraham DO Comments: end jun Doppler Ultrasound OtherBy: [place] On: 27-Dec-2009 Intent Sara HENRY E Tia HENRY, Sara Mc Comments: left leg, today, call wet read Radiology - Foot - LeftBy: [place] On: 27-Dec-2009 Intent Sara HENRY E Tia HENRY, Sara Mc Comments: today call wet read MAMMOGRAM, SCREENING, BOTH BREASTS On: 24-Jun-2009 Intent ([id number])By: Maral Krishnan Inhaler Demo ([id number])By: Shelton RUIZ, On: 09-Jun-2009 Intent [facility] - Chest- PA and LatBy: On: 09-Jun-2009 Intent Chikis Peoples DO Aerosol Treatment ([id number])By: On: 09-Jun-2009 Intent Chikis Peoples DO Comments: less irritablilty Wax Currettes ([id number])By: Shelton On: 09-Jun-2009 Intent Chikis RUIZ Comments: tolerated well - clean -currette used Ear Irrigation (58795)By: Shelton On: 09-Jun-2009 Intent Chikis RUIZ Comments: pt tolerated well Spirometry ([id number])By: Shelton RUIZ On: 09-Jun-2009 Intent Chikis Comments: poor effort started to have coughing fit FLU VAC, SPLIT, >3 YEARS, On: 19-May-2009 Intent INTRAMUSC (00711)By: Ailyn Jones RN IMMUNIZ ADMNIN, 1 VAC, SNGL/COMBO On: 19-May-2009 Intent ([id number])By: Ailyn Jones RN Echo CompleteBy: Brittany Abraham DO On: 23-Feb-2009 Intent Echo CompleteBy: Brittany Abraham DO On: 10-Jan-2009 Intent PNEUM VAC ADLT/IMUMNOSPR, On: 02-Aug-2008 Intent SBC/INTRM ([id number])By: Ran, Comments: Lot #[id number] date:mount given:0.5Site given: right deltoidGiven by:Wf. Rios ADMINISTRATION OF PNEUMOCOCCAL On: 02-Aug-2008 Intent VACCINE (G0009)By: Blanca Tong DXA, BONE DENSITY, AXIAL SKELETON On: 06-Apr-2008 Intent ([id number])By: Fast DO, Brittany A FLU VAC, SPLIT, >3 YEARS, On: 13-Jun-2007 Intent INTRAMUSC (74354)By: Savannah Vargas IMMUNIZ ADMNIN, 1 VAC, SNGL/COMBO On: 13-Jun-2007 Intent ([id number])By: Savannah Vargas Overnight Pulse Ox([id number])By: On: 05-May-2007 Intent Blanca Tong Echo CompleteBy: Fast DO, Brittany A On: 18-Apr-2007 Intent Overnight Pulse OX ([id number])By: Fast On: 18-Apr-2007 Intent DO, Brittany A MAMMOGRAM, SCREENING, BOTH BREASTS On: 14-May-2006 Intent ([id number])By: Jarad DO, Brittany A EKG (24369)By: Fast DO, Brittany A On: 14-May-2006 Intent Echo CompleteBy: Fast DO, Brittany A On: 14-May-2006 Intent Planned Medications INJECTION, CEFTRIAXONE SODIUM, PER 250 MG Ordered: 06-Aug-2017 Pending Kaykay Layne INJECTION, METHYLPREDNISOLONE SODIUM SUCCINATE, UP TO 125 MG Ordered: 08-Aug-2017 Pending Kaykay Layne Instructions Name Dates Details CKD (chronic kidney disease), stage III : DISCONTINUED - CBC, PLATELETS & AUT DIFF (13130) Indication: CKD (chronic kidney disease), stage III CKD (chronic kidney disease), stage III : DISCONTINUED - METABOLIC PANEL, COMPREHENSIVE (01721) Indication: CKD (chronic kidney disease), stage III [...] fibrillation : DISCONTINUED - PT (PROTHROMBIN TIME) (36427) Indication: Atrial fibrillation Atrial fibrillation : DISCONTINUED - PT (PROTHROMBIN TIME) (96914) Indication: Atrial fibrillation Lower GI bleed : DISCONTINUED - CBC, PLATELETS & AUT DIFF (55757) Indication: Lower GI bleed Lower GI bleed : DISCONTINUED - METABOLIC PANEL, COMPREHENSIVE (53066) Indication: Lower GI bleed Diabetes mellitus type [...] : DISCONTINUED - Hemoglobin Glyclated (HGB A1C) (52817) Indication: Diabetes mellitus type II, controlled Osteopenia : DISCONTINUED - Vitamin D Hydroxy (26215) Indication: Osteopenia Essential hypertension with goal blood pressure less than 130/80 : DISCONTINUED - METABOLIC PANEL, COMPREHENSIVE (51487) Indication: Essential hypertension with goal blood pressure less than 130/80 Other chronic nonalcoholic liver disease : DISCONTINUED - [id number] (31159) Indication: 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 : DISCONTINUED - PTT (Activated Partial Thromboplastin Time) (92626) Indication: 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 : DISCONTINUED - PT (PROTHROMBIN TIME) (17704) Indication: Other chronic nonalcoholic liver disease Atrial fibrillation : DISCONTINUED - PT (PROTHROMBIN TIME) (07153) Indication: Atrial fibrillation Atrial fibrillation : DISCONTINUED - PT (PROTHROMBIN TIME) (85110) Indication: Atrial fibrillation Atrial fibrillation : DISCONTINUED - BLD CNT, COMPL CBC W/AUTO DIFF WBC (27440) Indication: Atrial fibrillation Anemia, unspecified : DISCONTINUED - CBC WITH MANUAL DIFF (32648) Indication: Anemia, unspecified Mild vitamin D deficiency : DISCONTINUED - Vitamin D Hydroxy (71788) Indication: Mild vitamin D deficiency Mild vitamin D deficiency : DISCONTINUED - Vitamin D Hydroxy (60880) Indication: Mild vitamin D deficiency Abnormal glucose tolerance test : DISCONTINUED - METABOLIC PANEL, COMPREHENSIVE (38616) Indication: Abnormal glucose tolerance test Abnormal glucose tolerance test : DISCONTINUED - METABOLIC PANEL, COMPREHENSIVE (28468) Indication: Abnormal glucose tolerance test Mixed dyslipidemia : DISCONTINUED - LIPID PANEL (49838) Indication: Mixed dyslipidemia Mixed dyslipidemia : DISCONTINUED - LIPID PANEL (66492) Indication: Mixed dyslipidemia Mixed dyslipidemia : DISCONTINUED - HEPATIC FUNCTION PANEL (41003) Indication: Mixed dyslipidemia Anemia, unspecified : DISCONTINUED - CBC WITH MANUAL DIFF (40745) Indication: Anemia, unspecified Diabetes mellitus type 2, [...] Note for Transition into care: Again to [facility] End: 24-Mar-2018 10:05 n for GI Bleed 03-16-18 Dr. Graham..... Gi doce at [facility] , A pos. on 03-19 Bunm 19 creat 1.53 last hemoglobin on 03-19 discharge date 8.4. Got iron infusion at [facility] and to get on Sat. by Dr. Michelle She wi ll see Dr. Pacheco he is GI at [facility] Mar [address] Graham saw [...] Note for Transition into care: Sent to [facility] for acute blood loss from coumadin, found ulcertations in the duodenum , no dieulofay lesions or AVM's procedue done by An Olmos. Got 2 units FFP and 8 units of blood, at [facility] and 6 more at [facility]. INR was 3.7 and day before 2.1Pt [...] reevaluate ??Asking if still needs to see financial reporting specialist Dr. Jean-Baptisteting periodic infusions and iron supplements, [...] reevaluate Asking if still needs to see financial reporting specialist Dr. Caruso periodic infusions and iron supplementsEncounter [...] for chroni c medical issues: Seeing new network operations technician Dr. Merchant Has had iron levels and iron infusions . Asking if still needs to see financial reporting specialist Dr. MccurdyGetting periodic infusions and iron supplements, [...] explosive GI Bleed wten tot ER at [facility] with CBC with hemoglobin of 8.7 then to 7.9 given a unit of blood, See by Dr. Hobbs for lower GI bleed with colonoscopy found bleeding diverticuli . Dr. Anaya hospitalist . 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 The patient has noticed lack of energy. Other providers contributing to the patient's care are terrestrial ecologist (Dr. Raymundo), actuarial technician (Leslie) and other: (chiropractor- once monthly). 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 The patient has noticed lack of energy. Other providers contributing to the patient's care are terrestrial ecologist (Dr. Raymundo) and other: (chiropractor- once monthly). [...] to 110's/60's). 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 was at [facility] for Heart cath. 07-30-2006). The [...] (427.31), Hyperlipidemia, Mixed (272.2), Coronary atherosclerosis of [place] coronary vessel (414.01) [facility] Historical [...]
--- OUTSIDE RECORDS SUMMARY | 2018-11-06 12:22 | XMS RPT_ITS | Continuity of Care Document ---
:1945 Author Organization [facility] Address [facility] [address] [place] [address] Phone Care Team Providers Name Role Phone Sara Swartz CNP Unavailable Jarad Brittany RUIZ Unavailable Natalia Mccurdy Unavailable Mackenzie Blanton Unavailable Unavailable Long HEALTH CARE RECRUITER, Mona L Unavailable Unavailable Jayda Frias Unavailable Unavailable Alana Mathis Unavailable Unavailable Bettie Hunter Unavailable Unavailable Vishal Bradford Unavailable Unavailable Slarb HEALTH CARE RECRUITER, Alana Unavailable Unavailable Unavailable Unavailable Problems Name [...] creat 1.75 Status: Active Coronary atherosclerosis of [place] coronary vessel (I25.10, 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 Viral Status: Active Deliveries (Parity) Comments: 1 Status: Active Diabetes mellitus type 2, uncontrolled, without complications (E11.65, 250.02) Comments: HBA1c 6.0(07/04)HBA1c 6.1( Was 6.0 10/04).A1c 5.5 with prn trajentatakes tradjenta 4- 5 X /month when going for a democrat and eating sweetsFBS: once in a while [...] diet and exercise.Patient has 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 of employment law attorney and living will.( and daughter) Status: Active Encounter for screening mammogram for breast cancer (Renamed from Encounter for screening mammogram for malignant neoplasm of breast) (Z12.31, V76.12) Status: Active Essential hypertension with goal blood [...] Hypoxia (R09.02, 799.02) Comments: prescribed oxygen by [facility] at discharge, will ask her to repeat pulse ox and walk to determine if need oxygen, Cpap Status: Active Iron deficiency anemia (D50.9, 280.9) Comments: Had embolization of vessel 2017 this has helped with acute decline of hemoglobin, Target ferritin >100 Tans sat >20,off of coumadin Balbina Thorne and getting IV iron Hb 11.1Fe 41 lowConsult atbebeto Hobbs on 2010 colonoscopy revelaed polyp, gets Iron infusion by Dr. 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[facility] [employer] work Status: 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, [...] atreium Left atrium enlargement, Rigoberto sending to [facility] for eval Status: Active Medications Name [...] days Quantity: 30 {Capsule} Refills: 0 Ordered:20-May-2017 Tia HENRY, Sara Jacksongordo HENRY, Sara Mc Start : 20-May-2017 Active Furosemide 40 MG Oral Tablet 1 (one) Tablet daily for 0 days Quantity: 90 {Tablet} Refills: 3 Ordered:06-Mar-2018 Tia HENRY, Sara Jacksongordo HENRY, Sara Mc Start : 06-Mar-2018 Active HydrALAZINE HCl 25 MG Oral Tablet 1 Tablet bid for 90 days Quantity: 180 {Tablet} Refills: 3 Ordered:10-Jun-2018 Tia HENRY, Sara Jacksongordo HENRY, Sara Mc Start : 10-Jun-2018 Active LANCETS (Miscellaneous) 1 (one) Misc daily for 0 days Quantity: 100 {Misc} Refills: 3 Ordered:31-Oct-2012 Ariane Hartman Start : 28-Jul-2012 Active Comments:Reli-On Lancets Magnesium Oxide 400 (240 Mg) MG Oral Tablet 1 (one) Tablet qd for 0 days Quantity: 60 {Tablet} Refills: 4 Ordered:31-Dec-2016 Tia HENRY, Sara LARIOStaz HENRY, Magaly Start : 31-Dec-2016 Active Metoprolol Tartrate 100 MG Oral Tablet 1 (one) Tablet bid for 90 days Quantity: 180 {Tablet} Refills: 3 Ordered:16-Apr-2018 Tia HENRY, Sara Raymond CNP, Sara Mc Start : 16-Apr-2018 Active Multivitamins [...] days Quantity: 100 {Strip} Refills: 3 Ordered:06-Aug-2012 Brittany Abraham DO Start : 06-Aug-2012 Active Comments:DX: 250.02 ROPINIRole [...] 0 Ordered:07-Apr-2018 Tia HENRY, Sara Raymond CNP, Magaly Start : 07-Apr-2018 Active Comments:Dr Nelson Symbicort 160-4.5 MCG/ACT Inhalation Aerosol 2 puffs [...] days Quantity: 28 {Tablet} Refills: 0 Ordered:04-Nov-2013 Tia HENRY, Sara Raymond CNP, Sara cM Start : 04-Nov-2013 End : 18-Nov-2013 Inactive [...] diarrhea for 2 days Refills: 0 Ordered:03-May-2011 Tia HENRY, Sara Echeverria CNP Start : 01-May-2011 End : 03-May-2011 Inactive Comments:pt will use script from previous Health care provide r DOXYCYCLINE HYCLATE, 100MG (Oral Capsule) 1 (one) Capsule bid for 14 days Quantity: 28 {Capsule} Refills: 0 Ordered:04-Nov-2013 Sara Swartz CNP, CNP, Mary E Start : 04-Nov-2013 End : 18-Nov-2013 Inactive Comments:take with food Ferrous Sulfate 325 (65 Fe) MG Oral Tablet Delayed Release 1 (one) Tablet DR tid for 30 days Quantity: 90 {Tablet} Refills: 3 Ordered:06-Mar-2018 Sara Swartz CNP, CNP, Mary E Start : 06-Dec-2017 End : 06-Mar-2018 Inactive [...] Quantity: 60 {Tablet} Refills: 3 Ordered:29-Jan-2018 Tia PROPERTY INSPECTOR, Sara Raymond PROPERTY INSPECTOR, Sara Mc Start : 21-Jan-2018 End : 29-Jan-2018 Inactive PredniSONE 10 MG Oral Tablet 1 Tablet TAD for 0 days Quantity: 18 {Tablet} Refills: 0 Ordered:20-Sep-2017 Alana Lange LPN Start : 08-Aug-2017 End : 20-Sep-2017 Inactive Comments:30mg x 3 days, 20mg x 3 days,10mg x 3 days Rhinocort Allergy 32 MCG/ACT Nasal Suspension 2 (two) [place] In each nostril Daily for 1 days [...] days Quantity: 4 {Tablet} Refills: 2 Ordered:09-Sep-2009 Sara Swartz CNP, CNP, Magaly Start : 09-Sep-2009 End : [...] Quantity: 30 {Tablet} Refills: 0 Ordered:01-May-2011 Tia HENRY, Sara Raymond CNP, Sara Mc Start : 01-May-2011 End : 01-May-2011 Discontinued CO-Q 10 [place]-3 Fish Oil Oral Capsule 1 (one) Capsule [...] Quantity: 4 {Tablet} Refills: 3 Ordered:01-Nov-2009 Brittany RUIZ Start : 01-Nov-2009 End : 01-Nov-2009 Discontinued GLUCOPHAGE XR, 500MG (Oral Tablet Extended Release 24 Hour) 2 (two) Tablet ER 24HR q tanmay meal for 90 days Quantity: 180 {Tablet_ER_24HR} Refills: 3 Ordered:07-Jul-2012 Brittany RUIZ Start : 07-Jul-2012 End : 07-Jul-2012 Discontinued HydroCHLOROthiazide 25 MG Oral Tablet 1 tab daily for 0 days Refills: 0 Ordered:21-Dec-2016 Alana Lange LPN Start : 27-Mar-2016 End : 21-Dec-2016 Discontinued KLOR-CON M20, 20MEQ (Oral Tablet Extended Release) 1/2 Tablet ER qd for 0 days Quantity: 45 {Tablet_ER} Refills: 3 Ordered:14-Feb-2011 Fast Brittany RUIZ Start : 14-Feb-2011 End : 14-Feb-2011 Discontinued [...] 20-May-2017 End : 10-Jun-2018 Discontinued VITAMIN D, [id number] (Oral Capsule) 1 (one) Capsule q week for 0 days Quantity: 12 {Capsule} Refills: 0 Ordered:03-Feb-2010 Ariane Hartman Start : 03-Feb-2010 End : 31-Aug-2011 Discontinued Comments:This order discontinued per [facility]. VYTORIN, 10-20MG (Oral Tablet) 1 Tablet QD [...] Comments: secondary to sepsis, dehyrdation, and ? CA now improving was 2.05 now 1.21 going [...] (Z23, V03.89) Status: Inactive as of 14-Feb-2011 Fever and chills (R50.9, 780.60) Status: Resolved [...] Foot Completed Comments: 1980s Date Value Details 03-Jul-2018 Oncology Visit Report Result: Comments: See Note; NOTES: [facility] [address] [place] [address] OFFICE VISIT Date of Service: 07/03/18 1424 MR#: [id number] Acct: [id number] Name: GABBI ROLLE Rep #: [id number] : 1945 From: Halley Khan MD Age/Sex: [...] - Date of Service Date of Service:: 07/03/18 - Chief Complaint Anemia - History of [...] GI bleed and was urgently transferred to [facility] where she underwent a nuclear medicine [...] of Systems Constitutional:: Reports: Weakness, Fatigue - Overall feeling better since the last embolization. Denies: Fever, Sweats, Weight loss, Appetite change, Chills Cardiovascular:: Reports: Dyspnea on exertion. Denies: Chest pain, Palpitations, Orthopnea, PND, Shortness of breath Re spiratory: Reports: Shortness of breath upon exertion. Denies: Cough, Hemoptysis, Shortness of Breath, Wheezing Gastrointestinal:: Denies: Abdominal pain, Nausea, Vomiting, Diarrhea, Constipation, Hemat ochezia Genitourinary: Denies: Dysuria, Hematuria, 15, Flank pain Musculoskeletal:: Reports: Arthritis, Arthralgia. Denies: Back pain, Myalgia Skin: Denies: Rash, Skin Changes, Wounds Neurological:: Den ies: Headache, Dizziness, Visual changes, Tinnitus, Hearing loss Psychiatric: Denies: Anxiety, Depression, Homicidal Ideations, Suicidal Ideations Vital Signs Height 5 ft 7 in Weight: 144.696 kg Weight in Pounds 319.0 lbs Pulse Ox 100 - Physical Exam General: Alert, Oriented x3, No apparent distress, - - Morbidly obese ECOG 2 Laboratory Data: Laboratory Tests Iron Saturation 5.6 L 12.8 L 21.2 Fe rritin 46 33 32 Iron Saturation 10.4 L 19.7 26.7 Ferritin 43 69 109 Iron Saturation 13.0 L 12.7 L 31.9 Ferritin 60 54 135 Iron Saturation 11.8 L 13.4 L 14.1 L Ferritin 44 55 66 Assessment and Plan 72-year-old female with chronic recurring anemia most consistent with multiple factors includin. 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 She does respond but tends to recur despite repeated IV iron infusions. Target ferritin (over 100) and transferrin saturation (over 20%) and presence of chronic diseases including chronic kidney insufficiency February 23, 2018 underwent angiography an d embolization of a bleeding vessel. Her H AND H and iron studies showed less dramatic fluctuations since but overall there is a slower decline and iron studies suggestive of ongoing but to a much lesse r extent chronic blood loss. Will continue to supplement with IV iron and reassess in 1 month. 2. Anemia of chronic renal failure. With correction of her iron deficiency anemia her hematocrit tends to be at 30% or above therefore she is not a candidate for erythrocyte stimulating agent therapy for anemia of chronic kidney failure at present. 3. Anemia due to polypharmacy and minor contributor but ex pected side effect. 4. Worsening of her chronic GI blood loss can be attributed to Coumadin anticoagulation on top of colonic pathology . Anticoagulation has been discontinued 2018 Patient was seen wa s her impression and plan discussed. Medications: Prescriptions This Visit Medication Instructions Recorded Ipratropium/Albuterol Sulfate 2 puff IH Q4H PRN PRN 01/03/18 [Combivent Respimat In farnaz [place]] Furosemide [Lasix] 40 mg PO BID 01/15/18 Primary Care Provider: Sara Swartz Referring Provider: Halley Khan MD 07/03/18 9656 <Electronically signed by Halley Khan MD&amp ;#62; Date Halley Khan MD Cosign Signature: Date (if applicable) CC: 22-Jun-2018 Urgent Care Visit Report Result: Comments: See Note; NOTES: [address] [address] OFFICE VISIT Date of Service: 06/22/18 MR#: [id number] Acct: [id number] Name: GABBI ROLLE p #: [id number] : 1945 Provider: BROOK Maloney Age/Sex: 73/F [place] [facility] Status: Signed with Addenda ADDENDUM by BROOK Maloney on 06/22/18 at 1401 Addendum entered and electronically signed by BROOK Carter 06/22/18 14:01: HPI Chief Complaint: Sinus pain Details: GABBI ROLLE, is a 73 F who presents to the office today for a one-week history of sinus pain postnasal drip headache and cough. She believes she has a sinus infection. She states she is going in for evaluation for a tricuspid and a bicuspid valve replacement in the next week. She is afraid of getting an infection in her valve. She states she has had low-grade fevers. She is taking Robitussin and using a Stephanie pot. ROS Const Constitutional: Positive for headache(s) ENT ENT: Positive for facial pain, sinus pressur e, sinus pain, post nasal drip and headache(s) Neuro Neurology: Positive for headache(s) Assessment AND Plan Problems 1. Acute non-recurrent maxillary sinusitis J01.00 Plan - BROOK Carter Patient was instructed to complete the amoxicillin as directed keep well-hydrated and follow-up with her primary care physician if her symptoms worsen. I advised her to keep the cardiology appointment next week . Medications New: 06/22/18 1401 <Electronically signed by Chance DOE> Date Chance Maloney cc: * Signed Intake Intake Visit Terri sons: SINUS INFECTION Chief Complaint: Follow up Allergies No Known Allergies Allergy (Verified 05/27/18 14:44) Medications Ascorbic Acid [Vitamin C] 1,000 mg PO BID 11/18/17 [History Confirmed ] Calcium Citrate 500 mg PO BID 11/18/17 [History Confirmed 05/27/18] Cholecalciferol (Vitamin D3) [Vitamin D3] 2,000 unit PO BID 11/18/17 [History Confirmed 05/27/18] Magnesium Oxide [Magnesium] 400 mg PO DAILY 11/18/17 [History Confirmed 05/27/18] Metoprolol Tartrate [Lopressor (beta long)] 100 mg PO BID 11/18/17 [History Confirmed 05/27/18] Multivitamin [Daily Multiple Vitamin] 1 ea PO ENRICO LY 11/18/17 [History Confirmed 05/27/18] Pravastatin Sodium 80 mg PO QHS 11/18/17 [History Confirmed 05/27/18] Ropinirole HCl [Requip] 0.25 mg PO QHS 11/18/17 [History Confirmed 05/27/18] Sildenafil Cit rate [Revatio] 20 mg PO TID 11/18/17 [History Confirmed 05/27/18] Ubidecarenone [Coenzyme Q-10] 100 mg PO DAILY 11/18/17 [History Confirmed 05/27/18] hydrALAZINE [Apresoline] 25 mg PO BID 11/18/17 [Hist ory Confirmed 05/27/18] Ipratropium/Albuterol Sulfate [Combivent Respimat Inhal [place]] 2 puff IH Q4H PRN PRN 01/03/18 [History Confirmed 05/27/18] Furosemide [Lasix] 40 mg PO BID 01/15/18 [History Confi rmed 05/27/18] Potassium Chloride [K-Dur] 40 meq PO DAILY #60 tab 01/27/18 [Rx Confirmed 05/27/18] pantoprazole 40 mg tablet,delayed release 40 mg PO BID 02/13/18 [History Confirmed 05/27/18] Budesonide /Formoterol Fumarate [Symbicort 160-4.5 Mcg Inhaler] 2 puff IH BID 02/23/18 [History Confirmed 05/27/18] febuxostat 80 mg tablet 80 mg PO PRN PRN 04/29/18 [History Confirmed 05/27/18] [facility] Medical Hi story Atherosclerotic heart disease of [place] coro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 pectoris (Chronic) Chronic atrial fibrillation (Chronic) GI bleed (Acute) Hyperkalemia (Chronic) HLD (hyperlipidemia) (Chron ic) HTN (hypertension) (Chronic) Non-ST elevation (NSTEMI) myocardial infarction (Chronic) Nonrheumatic aortic (valve) stenosis (Chronic) Nonrheumatic mitral (valve) insufficiency (Chronic) Nonrheumatic tricuspid (valve) insufficiency (Chronic) Other secondary pulmonary hypertension (Chronic) SOB (shortness of breath) (Chronic) Anemia (Acute) Arthritis (Acute) Bloody stool (Acute) Diabetes (Acute) Div erticulitis (Acute) Fatigue (Acute) Heart attack (Acute) Heart disease (Acute) History of GI bleed (Acute) History of blood transfusion (Acute) History of hysterectomy (Acute) History of pneumonia (Acut e) Kidney disease (Acute) Knee pain (Acute) Liver disease (Acute) Obesity (Acute) Osteopenia (Acute) Pulmonary hypertension (Acute) Sepsis (Acute) Sepsis secondary to UTI (Acute) Surgical History His tory of appendectomy (Acute) Status post right foot surgery (Acute) History of left heart catheterization (LHC) (Resolved) Family History Mother , age 83 Uterine cancer Hypertension Father Dec eased, age 81 Heart disease Diabetes CAD (coronary artery disease) Hypertension Social History Smoking Status: Never smoker alcohol intake: never substance use type: does not use caffeine: No what typ e of physical activity do you participate in: none seatbelt use: always do you feel safe at home: Yes HPI HPI Chief Complaint: Follow up Details: GABBI ROLLE, is a 73 F who presents to the office today for ROS Const Constitutional: Positive for headache(s) Eyes Eyes: No change in vision ENT ENT: Positive for headache(s), facial pain, sinus pain and post nasal drip Resp Respiratory: No cough, c hest congestion, shortness of breath or wheezing Cardio Cardiology: No chest pain at rest or chest pain with exertion Gastro GI: No abdominal pain, diarrhea, vomiting or nausea/dyspepsia Musc Musculoske letal: No back pain Skin Skin: No rash or change in skin color Neuro Neurology: Positive for headache(s) Aller/Imm Allergy/Immunologic: No wheezing Coding Level of Care Code Off vis,est,level 3 12/04 5149 <Electronically signed by Chance DOE> Date Chance DOE Cosigner Signature: Date (if applicable) CC: 22-Jun-2018 Urgent Care Visit Report Result: Comments: See Note; NOTES: [facility] [address] [place] [address] OFFICE VISIT Date of Service: 06/22/18 MR#: [id number] Acct: [id number] Name: GABBI ROLLE #: [id number] : 1945 Provider: BROOK Maloney Age/Sex: 73/F Location: [facility] Status: Signed Intake Intake Visit Reasons: SINUS INFECTION Chief Complaint: Follow up Allergies No Known Aller gies Allergy (Verified 05/27/18 14:44) Medications Ascorbic Acid [Vitamin C] 1,000 mg PO BID 11/18/17 [History Confirmed 05/27/18] Calcium Citrate 500 mg PO BID 11/18/17 [History Confirmed 05/27/18] Cholecalciferol (Vitamin D3) [Vitamin D3] 2,000 unit PO BID 11/18/17 [History Confirmed 05/27/18] Magnesium Oxide [Magnesium] 400 mg PO DAILY 11/18/17 [History Confirmed 05/27/18] Metoprolol Tartrate [ Lopressor (beta long)] 100 mg PO BID 11/18/17 [History Confirmed 05/27/18] Multivitamin [Daily Multiple Vitamin] 1 ea PO DAILY 11/18/17 [History Confirmed 05/27/18] Pravastatin Sodium 80 mg PO QHS [History Confirmed 05/27/18] Ropinirole HCl [Requip] 0.25 mg PO QHS 11/18/17 [History Confirmed 05/27/18] Sildenafil Citrate [Revatio] 20 mg PO TID 11/18/17 [History Confirmed 05/27/18] Ubidecare none [Coenzyme Q-10] 100 mg PO DAILY 11/18/17 [History Confirmed 05/27/18] hydrALAZINE [Apresoline] 25 mg PO BID 11/18/17 [History Confirmed 05/27/18] Ipratropium/Albuterol Sulfate [Combivent Respimat I nhal [place]] 2 puff IH Q4H PRN PRN 01/03/18 [History Confirmed 05/27/18] Furosemide [Lasix] 40 mg PO BID 01/15/18 [History Confirmed 05/27/18] Potassium Chloride [K-Dur] 40 meq PO DAILY #60 tab 01/27/18 [Rx Confirmed 05/27/18] pantoprazole 40 mg tablet,delayed release 40 mg PO BID 02/13/18 [History Confirmed 05/27/18] Budesonide/Formoterol Fumarate [Symbicort 160-4.5 Mcg Inhaler] 2 puff IH BID 02/23/18 [History Confirmed 05/27/18] febuxostat 80 mg tablet 80 mg PO PRN PRN 04/29/18 [History Confirmed 05/27/18] PFSH Medical History Atherosclerotic heart disease of [place] coronary artery without irina na pectoris (Chronic) Chronic atrial fibrillation (Chronic) GI bleed (Acute) Hyperkalemia (Chronic) HLD (hyperlipidemia) (Chronic) HTN (hypertension) (Chronic) Non-ST elevation (NSTEMI) myocardial infar ction (Chronic) Nonrheumatic aortic (valve) stenosis (Chronic) Nonrheumatic mitral (valve) insufficiency (Chronic) Nonrheumatic tricuspid (valve) insufficiency (Chronic) Other secondary pulmonary hypert ension (Chronic) SOB (shortness of breath) (Chronic) Anemia (Acute) Arthritis (Acute) Bloody stool (Acute) Diabetes (Acute) Diverticulitis (Acute) Fatigue (Acute) Heart attack (Acute) Heart disease (Acu te) History of GI bleed (Acute) History of blood transfusion (Acute) History of hysterectomy (Acute) History of pneumonia (Acute) Kidney disease (Acute) Knee pain (Acute) Liver disease (Acute) Obesity ( Acute) Osteopenia (Acute) Pulmonary hypertension (Acute) Sepsis (Acute) Sepsis secondary to UTI (Acute) Surgical History History of appendectomy (Acute) Status post right foot surgery (Acute) History of left heart catheterization (LHC) (Resolved) Family History Mother , age 83 Uterine cancer Hypertension Father , age 81 Heart disease Diabetes CAD (coronary artery disease) Hyperten jasper Social History Smoking Status: Never smoker alcohol intake: never substance use type: does not use caffeine: No what type of physical activity do you participate in: none seatbelt use: always do you feel safe at home: Yes HPI HPI Chief Complaint: Follow up Details: GABBI ROLLE, is a 73 F who presents to the office today for ROS Const Constitutional: Positive for headache(s) Eyes Eyes: N o change in vision ENT ENT: Positive for headache(s), facial pain, sinus pain and post nasal drip Resp Respiratory: No cough, chest congestion, shortness of breath or wheezing Cardio Cardiology: No ches t pain at rest or chest pain with exertion Gastro GI: No abdominal pain, diarrhea, vomiting or nausea/dyspepsia Musc Musculoskeletal: No back pain Skin Skin: No rash or change in skin color Neuro Neurol ogy: Positive for headache(s) Aller/Imm Allergy/Immunologic: No wheezing Coding Level of Care Code Off vis,est,level 3 06/22/18 1351 <Electronically signed by Chance DOE> Date __ Chance DOE Cosigner Signature: Date (if applicable) CC: 27-May-2018 Oncology Visit Report Result: Comments: See Note; NOTES: [facility] [address] [place] [id number] OFFICE VISIT Date of Service: 05/27/18 1342 MR#: [id number] Acct: [id number] Name: GABBI ROLLE Rep #: [id number] : 1945 From: Halley Khan MD Age/Sex: [...] GI bleed and was urgently transferred to [facility] where she underwent a nuclear medicine [...] Appendectomy,Hysterectomy Other Surgical History: RIGHT FOOT SURGERY 1986 [...] GI blood loss 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 Patient was transfused with packed [...] Q4H PRN PRN 01/03/18 [Combivent Respimat Inhal [place]] Furosemide [Lasix] 40 mg PO BID 01/15/18 Primary Care Provider: Sara Burris [facility] Provider: Halley Khan MD 05/27/18 1411 <Electronically signed by Halley Khan MD> Date Halley Khan MD Cosigner Signature: Date (if applicable) CC: 26-May-2018 Cardiology Visit Report Result: Comments: See Note; NOTES: [facility] [address] [place] [address] OFFICE VISIT Date of Service: 05/26/18 MR#: [id number] Acct: [id number] Name: GABBI ROLLE Rep #: [id number] : 1945 Provider: Niraj Raymundo MD Age/Sex: 73/F [place] [facility] Status: Signed [facility] Chief Complaint: Follow up Details: GABBI ROLLE, [...] syncopal episodes. She continues to see the brush maker machine for follow-up of her blood work. She [...] 1,000 mg PO BID 11/18/17 [History Confirmed 05/26/18] Calcium Citrate 500 mg [...] Confirmed 05/26/18] Ipratropium/Albuterol Sulfate [Combivent Respimat Inhal [place]] 2 puff IH Q4H PRN PRN 01/03/18 [...] PFSH Medical History Atherosclerotic heart disease of [place] coro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 pectoris (Chronic) Chronic [...] watchman device as well 6. 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 transplanted heart: [place] heart CKD (chronic kidney disease), stage III N18.3 Anemia, unspecified type D64.9 Anemia type: unspecified type Coding Level of C are Code Off vis,est,level 5 Diagnoses Nonrheumatic aortic (valve) stenosis I35.0 Nonrheumatic mitral (valve) insufficiency I34.0 Other secondary pulmonary hypertension I27.29 Essential hypertension I1 0 Hypertension type: essential hypertension Chronic atrial fibrillation I48.2 Atherosclerosis of [place] coronary artery of [place] heart without angina pectoris I25.10 [place] vs. transplanted heart: [place] heart CKD (chronic kidney disease), stage III N18.3 Anemia, unspecified type D64.9 Anemia type: unspecified type 05/26/18 1541 <Electronically signed by Niraj Raymundo MD> Date Niraj Raymundo MD Cosigner Signature: Date (if applicable) CC: Sara Swartz DANIELE 23-May-2018 Echo Transesophageal (YOUNG) Result: Comments: See Note; NOTES: [facility] Cardiovascular Services [address] [place] [address] Echo Transesophageal (YOUNG) 05/23/18 0924 MR#: [id number] Acct: [id number] Name: GABBI GATES Rep #: [id number] : 1945 73 From: Niraj Raymundo MD Attending Dr: Rigoberto BALDWIN,Niraj Status: REG CLI Ordering Dr: Niraj Raymundo MD Date: 05/23/18 Location: [facility] Sex: F C Admitted: Reason For Study: Aortic Stenosis Medication YOUNG probe passed with minimal difficulty. No complications were noted. Topex Topical Orlando given X4 metered doses orally. Versed 2 [...] Date Niraj Raymundo MD CC: Sara caro SQUAD BOSS; Niraj Raymundo MD Date Dictated: 05/23/18923 Date Transcribed: 05/23/181511 Tightening Machine Operator: Signed 16-May-2018 12 Lead EKG [place] [facility] Result: Comments: See Note; NOTES: [facility] [address] [place] [address] 12 Lead EKG performed by [facility] 05/16/18956 MR#: [id number] Acct: [id number] Name: GABBI RODAS Rep #: [id number] : 1945 72 From: Niraj Raymundo MD Attending Dr: Niraj Raymundo MD Status: DEP AMB Ordering Dr: Niraj Raymundo MD Date: 05/16/18 [place] [facility] Sex: F C Admitted: ORDER # : [id number] [facility] Lead EKG performed [place] [facility] Possible atrial fibrillation Low voltage -possible pulmonary disease. ABNORMAL 05/19/18 0730 <Electronically signed by Niraj Raymundo MD> John e Niraj Raymundo MD CC: Sara Swartz NP Date Dictated: 05/16/18956 Date Transcribed: 05/16/18956 Tightening Machine Operator: CO Signed 03-May-2018 Echocardiogram Complete Result: Comments: See Note; NOTES: [facility] Cardiovascular Services [address] [facility] [place] [address] Echo Complete 05/02/18 1405 MR#: [id number] Acct: [id number] Name: GABBI ROLLE Rep #: [id number] : 1945 72 From: Niraj Raymundo MD Attending Dr: Rigoberto BALDWIN,Niraj Status: REG CLI Ordering Dr: Niraj Raymundo MD Date: 05/02/18 Location: [facility] Sex: F C Admitted: Reason For [...] Referring Physician: Niraj Raymundo V Performed By: Brodwolf, Dany, RCS 05/03/18 1436 Date ____ Niraj Raymundo MD CC: Sara Swartz SQUAD BOSS; Niraj Raymundo MD Date Dictated: 05/02/18 1405 Date Transcribed: 05/03/18 1436 Tightening Machine Operator: Signed 29-Apr-2018 Oncology Visit Report Result: Comments: See Note; NOTES: [facility] [address] [place] [address] OFFICE VISIT Date of Service: 04/29/181416 MR#: [id number] Acct: [id number] Name: GABBI ROLLE Rep #: [id number] : 1945 From: Halley Khan MD Age/Sex: [...] GI bleed and was urgently transferred to [facility] where she underwent a nuclear medicine [...] GI blood loss 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 Patient was transfused with packed [...] Q4H PRN PRN 01/03/18 [Combivent Respimat Inhal [place]] Furosemide [Lasix] 40 mg PO BID 01/15/18 Primary Care Provider: Sara Swartz Referring Provider: Halley Khan MD 0965 <Electronically signed by Halley Khan MD> Date Halley Khan MD Cosigner Signature: Date (if applicable) CC: 29-Apr-2018 Cardiology Visit Report Result: Comments: See Note; NOTES: [facility] [address] [place] [address] OFFICE VISIT Date of Service: 04/29/18 MR#: [id number] Acct: [id number] Name: GABBI ROLLE Rep #: [id number] : 1945 Provider: Niraj Raymundo MD Age/Sex: 72/F [place] [facility] Status: Signed [facility] Chief Complaint: Follow up Details: GABBI ROLLE, [...] to the hospital 5 times since the . She has had a total of approximately 19 units of blood transfusion as well as has been getting iron infusions. She was recently taken off all her anticoagulation due to the recurrence of the abov e. She has had no dizziness or lightheadedness no maggie syncopal episodes. She continues to see the brush maker machine for follow-up of her blood work. Her physical exam today demonstrates clear lung rodriguez m ild pallor regular rate and rhythm a 2/6 harsh systolic murmur noted left sternal border and no pedal edema. 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 Plan Detail Follow Up 4 Months (r) Coding Level of Care Code Off vis,est,level 5 Diagnoses Chronic atrial fibrillation I48.2 Essential hypertension I10 Hypertension type: essential hypertension Coronary artery disease, angina p resence unspecified, unspecified vessel or lesion type, unspecified whether [place] or transplanted heart I25.10 Coronary Disease-Associated Artery/Lesion type: unspecified vessel or lesion type [place] v s. transplanted heart: unspecified whether [place] or transplanted heart Associated angina: angina presence [...] unspecified vessel or lesion type, unspecified whether [place] or transplanted heart I25.10 Coronary Disease-Associated Artery/Lesion type: unspecified vessel or lesion type [place] vs. 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 [address] OFFICE VISIT Date of Service: 04/02/18 1329 MR#: [id number] Acct: [id number] Name: GABBI ROLLE Rep #: [id number] : 1945 From: Halley Khan MD Age/Sex: [...] GI bleed and was urgently transferred to [facility] where she underwent a nuclear medicine [...] GI blood loss Despite oral iron supplementation (correction), . Patient was transfused with packed red [...] Q4H PRN PRN 01/03/18 [Combivent Respimat Inhal [place]] Furosemide [Lasix] 40 mg PO BID 01/15/18 Primary Care Provider: Sara Swartz Referring Provider: Halley olivares MD 04/02/18 5275 <Electronically signed by Halley Khan MD> Date Halley Khan MD [facility] Signature: Date __ (if applicable) CC: 05-Mar-2018 Oncology Visit Report Result: Comments: See Note; NOTES: [facility] [address] [place] [address] OFFICE VISIT Date of Service: 03/05/18 1431 MR#: [id number] Acct: [id number] Name: GABBI ROLLE Rep #: [id number] : 1945 From: Halley Khan MD Age/Sex: [...] GI bleed and was urgently transferred to [facility] where she underwent a [facility] medicine GI blood loss imaging followed [...] Dr. Hobbs, ) despite oral iron supplementation (correction) . Cher pitt was transfused with packed red cells on [...] sa Referring Provider: Halley Khan MD 03/05/18 4259 <Electronically signed by Halley Khan MD> Date Halley simms Signature: Date (if applicable) CC: 27-Feb-2018 12 Lead Electrocardiogram Result: Comments: See Note; NOTES: [facility] Cardiovascular Services [address] [place] [address] 12 Lead EKG 02/23/18 1015 MR#: [id number] Acct: [id number] Name: GABBI ROLLE Alexandro Saravia p #: [id number] : 1945 72 From: Saleem Zavala MD Attending Dr: Status: DEP ER Ordering Dr: Nelson Soria MD Date: 02/23/18 [...] T wave abnormality Abnormal ECG Confirmed by YVONNE BALDWIN, SALEEM ([id number]), loan expeditor JONATHON ROLLE ([id number]) on 02/27/2018 1:03:39 PM Referred By: Sara Swartz Confirmed By:SALEEM ZAVALA MD 02/27/18 1303 Date __ Saleem Zavala MD CC: Sara Swartz SQUAD BOSS; Nelson Soria MD Signed 23-Feb-2018 Emergency Department Summary Result: Comments: See Note; NOTES: [facility] Medical Records Department [address] [place] [address] Emergency Department Summary 02/23/18 1009 MR#: [id number] Acct: [id number] Name: GABBI ROLLE Rep #: [id number] : 1945 72 From: Nelson Soria MD [...] recently hospitalized about 3 weeks ago at [facility] for GI bleed. She was seen here initially, and was found to be significantly anemic with a supra therapeutic INR. She was started on a Protonix drip. S he underwent a bleeding scan which showed 2 areas of bleeding from the duodenum and the ascending colon. Given her multiple comorbidities, she was transferred to the ICU at [facility]. While there, patient was transfused. [...] based [facility] and multiple comorbidities, it was thought that she would best be served back at a tertiary facility. Patient was started on a Protonix drip given history of duodenal ulcer and bleeding. The patie nt was discussed with Dr. Rowe at [facility] who excepted the patient transfer. She will be transferred to the intensive care unit. Treatment Plan: [] Disposition: Transfer Impression: 1. GI bleed 2. Symptomatic anemia This note was generated with Spreedly dictation software. It may contain incorrect words, [...] problems, contact your Primary Care Provider. Call [place] [facility] ([phone]) or report to the closest Emergency Room. Call 911 if necessary. 02/23 1228 <Electronically signed by Nelson Soria MD> Date Nelson Soria MD Cosigner Signature (If Indicated): Date CC: Sara Swartz NP 23-Feb-2018 Chest 1 View (Portable) Result: Comments: See Note; NOTES: [facility] Imaging Services [address] [place] [address] Chest 1 View (Portable) MR#: [id number] Acct: [id number] Name: GABBI ROLLE Rep #: [id number] : 1945 F 72 From: Heriberto Dickey PCP: Sara Swartz NP Status: REG ER Study: Chest 1 View (Portable) Date of Exam: 02/23/18 Exam# [id number] Ordering Dr: Nelson Soria MD STUDY: X-RAY [...] , Service support , CC: Sara Swartz SQUAD BOSS; Nelson Soria MD Tightening Machine Operator: Signed 06-Feb-2018 12 Lead Electrocardiogram Result: Comments: See Note; NOTES: [facility] Cardiovascular Services [address] [place] [address] 12 Lead EKG 02/04/18 1427 MR#: [id number] Acct: [id number] Name: GABBI ROLLE Rani p #: [id number] : 1945 72 From: Niraj Raymundo MD [...] wave abnormal ity Abnormal ECG Confirmed by NIRAJ RAYMUNDO MD ([id number]), loan expeditor JONATHON ROLLE ([id number]) on 02/06/2018 9:00:22 AM Referred By: SAMMIE Confirmed By:NIRAJ RAYMUNDO MD 02/06/18 0900 Date Niraj Raymundo MD CC: Sara Swartz NP; Hayde Ruvalcaba DO Signed 04-Feb-2018 Emergency Department Summary Result: Comments: See Note; NOTES: [facility] Medical Records Department [address] [place] [address] Emergency Department Summary 02/04/18 1225 MR#: [id number] Acct: [id number] Name: GABBI ROLLE Rep #: [id number] : 1945 72 From: Hayde Ruvalcaba DO [...] is pe nding Treatment Plan: [Transfer to [facility]]. I discussed case with barge pilot who accepted transfer of the patient. I did give patient 5 mg of vitamin K subcu. Disposition: [Transfer] Impre ssion: Upper GI bleed and lower GI bleed [] This note was generated with Spreedly dictation software. It may contain incorrect words, [...] your Primary Care Provider. Call [facility] ([phone]) or report to the closest Emergency Room. Call 911 if necessary. 02/04/18 0763 <Electronically signed by Hayde Ruvalcaba DO> Date aHyde Ruvalcaba DO Cosigner Signature (If Indicated): Hugh garrison CC: Sara Swartz NP 04-Feb-2018 GI Bleed Scan Result: Comments: See Note; NOTES: [facility] Imaging Services [address] [place] [address] GI Bleed Scan MR#: [id number] Acct: [id number] Name: GABBI ROLLE Rep #: [id number] : 1945 F 72 From: Manuel Montoya MD PCP: Sara Swartz NP Status: REG ER Study: GI Bleed Scan Date of Exam: 02/04/18 Exam# [id number] Ordering Dr: Hayde Ruvalcaba DO NM GI [...] , NM/GI Bleed Scan CC: Sara Swartz NP; Hayde Ruvalcaba DO Tightening Machine Operator: Signed 29-Jan-2018 Oncology Visit Report Result: Comments: See Note; NOTES: [facility] [address] [place] [address] OFFICE VISIT Date of Service: 01/29/18 1339 MR#: [id number] Acct: [id number] Name: GABBI ROLLE Rep #: [id number] : 1945 From: Halley Khan MD Age/Sex: [...] consider capsule study) despite oral iron supplementation (correction) . Patient was transfused with packed red [...] puff IH DAILY 01/03/18 [Combivent Respimat Inhal [place] ] Furosemide [Lasix] 40 mg PO BID 01/15/18 Primary Care Provider: Sara Swartz Referring Provider: Halley Khan MD 01/29/18 5487 <Electronically signed by Halley Khan MD> John e Halley Khan MD Cosigner Signature: Date (if applicable) CC: Sara Swartz 16-Jan-2018 Surgery Visit Report Result: Comments: See Note; NOTES: [facility] [address] [place] [address]. 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 Bo Madrid MD Pager: [facility] [address] [place] [address], [address] [place] [address] Office: Fax: Coding Level of Care Code Global Post Op Diagnoses Encounter for insertion of venous access port Z45.2 01/16/18 0936 <Electronically signed by Bo Madrid MD> D ate Bo Madrid MD Cosigner Signature: Date (if applicable) CC: Sara Swartz NP 08-Jan-2018 Operative Report Result: Comments: See Note; NOTES: [facility] Medical Records Department [address] [place] [address] Operative Report 01/08/18 1157 MR#: [id number] Acct: [id number] Name: FINA ROLLE Rep #: [id number] : 1945 72 From: Bo Madrid MD PCP: Sara Swartz NP Status: [facility] Y Location: [place] [address] Problem List (1) Encounter for insertion of venous access port Status: [facility] (2) Anemia Status: Chronic Qualifiers: Anemia type: [...] x-ray will be obtained. Grafts/Implants Used: 8 Irish PowerPort and right IJ 01/08/18 1158 <Electronically signed by Bo Madrid MD> Date __ Bo Madrid MD CC: Sara Swartz NP; Bo Madrid MD Signed 08-Jan-2018 CXR for Line Placement Result: Comments: See Note; NOTES: [facility] Imaging Services [address] [place] [address] CXR for Line Placement MR#: [id number] Acct: [id number] Name: GABBI ROLLE Rep #: [id number] : 1945 F 72 From: Irvin Cho MD PCP: Sara Swartz NP [place] [facility] [place] Study: CXR for Line Placement Date of Exam: 01/08/18 Exam# [id number] Ordering Dr: Bo Madrid MD STUD Y: [...] Irvin Cho MD at 12:57 EDT Tel [phone], Service support , CC: Sara Swartz NP; Bo Madrid MD Tightening Machine Operator: Signed 08-Jan-2018 Discharge Instruction Result: Comments: See Note; NOTES: [facility] Medical Records Department [address] [place] [address] Instructions for Home/Discharge Instructions 01/08/18 1155 MR#: [id number] Acct: [id number] Name: GABBI ROLLE Rep #: [id number] : 1945 72 From: Bo Madrid MD PCP: Sara Swartz NP Status: REG SDC Discharge Diet: No Restrictions - Pain medication [...] 11/29/17 Ipratropium/Albute rol Sulfate [Combivent Respimat Inhal [place]] 1 puff IH DAILY 01/03/18 Primary Care Physician: Sara Swartz [Primary Care Provider] - Please Follow Up With: Bo Madrid MD When: call tomorrow to make 2 week follow up appt [phone] 01/08/18 1156 <Electronically signed by Bo Madrid MD> Date Bo Madrid MD CC: Sara Swartz NP 03-Jan-2018 Surgery Visit Report Result: Comments: See Note; NOTES: [facility] [address] [place] [address]. [address] [place] [address] OFFICE VISIT Date of Service: 01/03/18 MR#: [id number] Acct: [id number] Name: GABBI ROLLE Rep #: [id number] : 1945 Provider: Bo Madrid MD Age/Sex: 72/F Location: [facility] Status: Signed Intake Vital Signs01/03/18 Height 5 ft 7 in 01/03/18 Weight: 378 lb 9 oz Body Mass Index (BMI) 59.3 Intake Visit Reasons: Port Placement Chief Complaint: port consult Human Resources Generalist Required: No Is patient in pain?: No [...] Confirmed 01/03/18] Ipratropium/Albuterol Sulfate [Combivent Respimat Inhal [place]] 1 puff IH 01/03/18 [History Confirmed 01/03/18] Is last menstrual p eriod known: No Post menopausal: Yes Patient : No PFSH Medical History Atherosclerotic heart disease of [place] coro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 pect veronika (Chronic) [...] the day of. Bo Madrid MD Pager: [facility] [address] [place] [address], [address] [place] [address] Office: Coding Level of Care Code Off vis,new,level 3 Diagnoses Encounter for insertion of venous access port Z45.2 8 7244 <Electronically signed by Bo Madrid MD> Date Bo Madrid MD Cosigner Signature: Date (if applicable) CC: Sara Swartz SQUAD BOSS; Halley Khan MD 01-Jan-2018 Oncology Visit Report Result: Comments: See Note; NOTES: [facility] [address] [place] [address] OFFICE VISIT Date of Service: 01/01/18 1254 MR#: [id number] Acct: [id number] Name: GABBI ROLLE Rep #: [id number] : 1945 From: Halley Khan MD Age/Sex: 72/F Location: D Status: Signed - Problem List (1) Anemia [...] consider capsule study) despite oral iron supplementation (correction) . Patient was transfused with packed red [...] Swartz Referring Provider: Halley Khan MD 01/01/18 0137 <Electronically signed by Halley Khan MD> D ate Halley Khan MD Cosigner Signature: Date (if applicable) CC: 23-Dec-2017 Special CXR (Obl/Decub/A/L) Result: Comments: See Note; NOTES: [facility] Imaging Services [address] [place] [address] Special CXR (Obl/Decub/A/L) MR#: [id number] Acct: [id number] Name: GABBI ROLLE Rep #: [id number] : 1945 F 72 From: Geovanni Roper MD PCP: Sara Swartz NP Status: REG CLI Study: Special CXR (Obl/Decub/A/L) Date of Exam: 12/23/17 Exam# [id number] Ordering Dr: Carlos Nelson MD STUDY: X-RAY CHEST REASON FOR EXAM: Female, 72 years old. Dyspnea TECHNIQUE: Bilateral decubitus. COMPARISON: Radiographs of the same date.. FINDINGS: On the l eft there is a small layering pleural effusion. On the right no significant free- flowing fluid. Electronically Signed: Geovanni Roper MD at 16:00 EDT , Service support 08-26 [phone], RAD/Special CXR (Obl/Decub/A/L) CC: Sara Swartz NP; Carlos Nelson MD Tightening Machine Operator: Signed 23-Dec-2017 Special CXR (Obl/Decub/A/L) Result: Comments: See Note; NOTES: [facility] Imaging Services [address] [place] [address] Special CXR (Obl/Decub/A/L) MR#: [id number] Acct: [id number] Name: GABBI ROLLE Rep #: [id number] : 1945 F 72 From: Geovanni Roper MD PCP: Sara Swartz NP Status: REG CLI Study: Special CXR (Obl/Decub/A/L) Date of Exam: 12/23/17 Exam# [id number] Ordering Dr: Carlos Nelson MD STUDY: X-RAY [...] CC: Sara Swartz NP; Carlos Nelson MD Tightening Machine Operator: Signed 23-Dec-2017 Chest PA and Lateral Result: Comments: See Note; NOTES: [facility] Imaging Services [address] [place] [address] Chest PA and Lateral MR#: [id number] Acct: [id number] Name: GABBI ROLLE Rep #: [id number] : 1945 F 72 From: Geovanni Roper MD PCP: Sara Swartz NP Status: REG CLI Study: Chest PA and Lateral Date of Exam: 12/23/17 Exam# [id number] Ordering Dr: Carlos Nelson MD STUDY: X-RAY [...] Service support , CC: Sara Swartz NP; Carlos Nelson MD Tightening Machine Operator: Signed 06-Dec-2017 Oncology Visit Report Result: Comments: See Note; NOTES: [facility] [place] [address] OFFICE VISIT Date of Service: 12/05/17 1029 MR#: [id number] Acct: [id number] Name: GABBI ROLLE Rep #: [id number] : 1945 From: Halley Khan MD Age/Sex: [...] Service Date of Service:: 12/05/17 - Chief Wolf granados Anemia follow-up following recent hospitalization - History [...] Other S urgical History: RIGHT FOOT SURGERY 1986 Family History [...] consider capsule study) despite oral iron supplementation (correction) . Patient was transfused with packed red fatou ls in 2016 and again in November 2017 for severe symptomatic anemia patient required IV iron and does respond. Will continue to supplement PO fe with IV as guided by B.W. Target Transferrin sat >20 % and ferritin >100. IV Venofer 300 mg X 3 doses 11/2017 and reassess in 2. Anemia of chronic renal failure. not [...] ml IV X1 Primary Care Provider: Sara Swartz [facility] Provider: Halley Khan MD 12/06/17 0901 <Electronically signed by Halley Khan MD> Date Halley Mcfarland Chi gnature: Date (if applicable) CC: sara swartz 29-Nov-2017 Chest 1 View (Portable) Result: Comments: See Note; NOTES: [facility] Imaging Services [address] [place] [address] Chest 1 View (Portable) MR#: [id number] Acct: [id number] Name: GABBI ROLLE Rep #: [id number] : 1945 F 72 From: Norah Arreaga MD PCP: Sara Swartz NP Status: REG ER Study: Chest 1 View (Portable) Date of Exam: 11/29/17 Exam# [id number] Ordering Dr: Gabi Gardner MD STUDY: X-R [...] Service support , CC: Sara Swartz NP; Gabi Gardner MD Tightening Machine Operator: Signed 22-Nov-2017 12 Lead Electrocardiogram Result: Comments: See Note; NOTES: [facility] Cardiovascular Services [address] [place] [address] 12 Lead EKG 11/18/17 1440 MR#: [id number] Acct: [id number] Name: GABBI ROLLE Re p #: [id number] : 1945 72 From: Niraj Raymundo MD [...] wave a bnormality Abnormal ECG Confirmed by NIRAJ RAYMUNDO MD ([id number]), loan expeditor JONATHON ROLLE (56) on 11/22/2017 12:57:07 PM Referred By: JOO Confirmed By:NIRAJ RAYMUNDO MD 11/22/17 1257 Date Niraj Raymundo MD CC: Sara Swartz NP; Ariane Lakhani MD Signed 18-Nov-2017 Emergency Department Summary Result: Comments: See Note; NOTES: [facility] Medical Records Department [address] [place] [address] Emergency Department Summary 11/18/17 1735 MR#: [id number] Acct: [id number] Name: GABBI ROLLE Rep #: [id number] : 1945 72 From: Ariane Lakhani MD [...] weeks to see benefit. She called her brush maker machine today to see if she needed to [...] Dyspnea This note was gene rated with Spreedly dictation software. It may contain incorrect words, [...] your Primary Care Provider. Call [facility] ([phone]) or report to the closest Emergency Room. Call 911 if necessary. 11/18/171747 <Electronica lly signed by Ariane Lakhani MD> Date Ariane Lakhani MD Cosigner Signature (If Indicated): Date CC: Sara Swartz NP 18-Nov-2017 Discharge Instruction Result: Comments: See Note; NOTES: [facility] Medical Records Department [address] [place] [address] Discharge Instruction 11/18/171739 MR#: [id number] Acct: [id number] Name: GABBI ROLLE Rep #: [id number] : 1945 72 From: Ariane Lakhani MD [...] your Primary Care Provider. Call [facility] ([phone]) or report to the closest Emergency Room. Call 911 if necessary. 11/18/171742 <Electronically signed by Ariane Lakhani MD> Date Ariane Lakhani MD Cosigner Signature (If Indicated): Date CC: Sara Tia SANABRIA 18-Nov-2017 Chest PA and Lateral Result: Comments: See Note; NOTES: [facility] Imaging Services [address] [place] [address] Chest PA and Lateral MR#: [id number] Acct: [id number] Name: GABBI ROLLE Rep #: [id number] : 1945 F 72 From: Aaron Kenyon MD PCP: Sara Swartz NP Status: REG ER Study: Chest PA and Lateral Date of Exam: 11/18/17 Exam# [id number] Ordering Dr: Ariane Lakhani MD STUDY: X-RAY [...] , Service support , CC: Sara Swartz SQUAD BOSS; Ariane Lakhani MD Tightening Machine Operator: Signed 04-Nov-2017 Oncology Visit Report Result: Comments: See Note; NOTES: [facility] Oncology [address] [place] [address] OFFICE VISIT Date of Service: 11/04/17 1252 MR#: [id number] Acct: [id number] Name: GABBI ROLLE Rep #: [id number] : 1945 From: Halley Khan MD Age/Sex: [...] disease (most recent colonoscopy was in 2016). Swathi rowley is being seen in consultation [...] Appendectomy,Hysterectomy Other Surgical History: RIGHT FOOT SURGERY 1986 [...] GI blood loss presumed diverticular disease (colonoscopy 2016, not a candidate for surgical intervention due to her significant comorbidities, follow-up with Dr. Hobbs) despite oral iron supplementation (terminal operator) . Patient was transfused with packed red cells in 2016 for sever e symptomatic anemia patient required IV iron and did respond. Will supplement PO fe with IV as guided by B.W. Target Transferrin sat >20% and ferritin >100. IV Venofer 300 mg X 3 doses -11/2017 and reassess in 2. Anemia of chronic renal failure. not [...] Swartz Referring Provider: Halley Khan MD 11/04/17 5189 <Electronically signed by Trevor Khan MD> Date Halley Khan MD Cosigner Signature: Date (if applicable) CC: Sara Swartz; Heron Hobbs 19-Oct-2017 Urgent Care Visit Report Result: Comments: See Note; NOTES: [place] [address] OFFICE VISIT Date of Service: 10/19/17 MR#: [id number] Acct: [id number] Name: GABBI ROLLE p #: [id number] : 1945 Provider: Serge DOE Age/Sex: 72/F [...] PFSH Medical History Atherosclerotic heart disease of [place] coro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 pectoris (Chronic) Chronic [...] the above. This note was generated with Spreedly dictation software. It may contain incorrect words, [...] DOE Cosigner Signature: Date (if applicable) CC: 20-Sep-2017 Cardiology Visit Report Result: Comments: See Note; NOTES: [facility] [address] [place] [address] OFFICE VISIT Date of Service: 09/18/17 MR#: [id number] Acct: [id number] Name: GABBI ROLLE Rep #: [id number] : 1945 Provider: DANIELE Figueredo Age/Sex: 72/F [place] [facility] [place]: Signed HPI 4 M FU: Details: GABBI ROLLE, is a 72 F who presents to the office today [facility]. Patient has a history of [...] and gets Iron transfusions. Heart catheterization fro March 2017 shows severely elevated right heart [...] radial Intake Visit Reasons: 4 M FU Human Resources Generalist Required: No Accompanied by: None Is patient [...] PFSH Medical History Atherosclerotic heart disease of [place] c oro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 pectoris (Chronic) [...] affect Assessment AND Plan 1. Atherosclerosis of [place] coronary artery of [place] heart without angina pectoris I25.10 [facility]: 07/30/2006; 04/10/17 ROSALIND King Patient's most [...] this. 5. Nonrheumatic aortic (valve) stenosis I35.0 Plan - ROSALIND Cobb Patient's most recent echocardiogram as noted above. We will continue to monitor this through history, exam, and repeat echocardiogram as needed. 6. Essential hypertension I10 Plan - ROSALIND Cobb Patient blood pressure is elevated today in [...] times daily. 7. Mixed hyperlipidemia E78.2 Coreen n - ROSALIND Cobb Patient states having upcoming appointment with primary [...] mesha longer taking n Additional Comments - ROSALIND Cobb Discussed the above patient with Dr. Raymundo, [...] prior to saving. 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 Nonrheumatic aortic (valve) jamie nosis I35.0 Essential hypertension I10 Hypertension type: essential hypertension Mixed hyperlipidemia E78.2 Hyperlipidemia type: mixed hyperlipidemia 09/18/17 1515 <Electronically signed by Mendez Figueredo SQUAD BOSS-C> Date Lazaro Figueredo SQUAD BOSS-C 09/20/17 1531<Electronically signed by Niraj Raymundo MD> Cosigner Signature: Date ____ (if applicable) Niraj Raymundo MD CC: Sara Swartz NP 06-Aug-2017 Chest PA and Lateral Result: Comments: See Note; NOTES: [facility] Imaging Services [address] [place] [address] Chest PA and Lateral MR#: [id number] Acct: [id number] Name: GABBI ROLLE Rep #: [id number] : 1945 F 72 From: Ariane Crook MD PCP: Sara Swartz NP Status: REG CLI Study: Chest PA and Lateral Date of Exam: 08/06/17 Exam# [id number] Ordering Dr: Kaykay Layne SQUAD BOSS-C STUDY: X-RAY C HEST REASON FOR EXAM: [...] Crook MD at 17:23 EST Tel Direct: [phone], Service support [phone] [phone], CC: Sara Swartz NP; ROSALIND Layne Tightening Machine Operator: Signed 30-Jul-2017 Breast Limited Unilateral Result: Comments: See Note; NOTES: [facility] Imaging Services [address] [place] [address] Breast Limited Unilateral MR#: [id number] Acct: [id number] Name: GABBI ROLEL Rep #: [id number] : 1945 F 72 From: Irvin Cho MD PCP: Sara Swartz NP Status: REG CLI Study: Breast Limited Unilateral Date of Exam: 07/30/17 Exam# [id number] Ordering Dr: Sara Swartz STUDY: UL TRASOUND [...] Irvin Cho MD at 12:42 EST Tel [phone], OpGen support , CC: Sara Swartz NP Tightening Machine Operator: Signed 23-Jul-2017 SCREENING MAMM (CAD), BILAT Result: Comments: See Note; NOTES: [facility] Imaging Services [address] [place] [address] SCREENING MAMM (CAD), BILAT MR#: [id number] Acct: [id number] Name: GABBI ROLLE Rep #: [id number] : 1945 F 72 From: Irvin Cho MD PCP: Sara Swartz NP Status: REG CLI Study: SCREENING MAMM (CAD), BILAT Date of Exam: 07/23/17 Exam# [id number] Ordering Dr: Sara Swartz MAMMO GRAPHY - [...] results will be sent to the pa tieamrik by the facility within 30 days. Approximately 10% of breast cancers are not detected by mammography. A normal mammogram should not delay biopsy of a clinically suspicious abnormality. [id number] El ectronically Signed: Irvin Cho MD at 9:57 EST Tel [phone], Service support , CC: Sara Swartz NP Tightening Machine Operator: Signed 10-May-2017 History and Physical Exam Result: Comments: See Note; NOTES: [facility] Medical Records Department [address] [place] [address] History and Physical 05/10/17 1126 MR#: [id number] Acct: [id number] Name: Alvina ROLLE Rep #: [id number] : 1945 71 From: Halley Khan MD [...] was in 2017). Patient is being seen in consultation for [...] iron but tends to recur. Power of Saddle Lining Stitcher: Yes Living Will: Yes Health History: Past [...] Hemoptysis Gastrointestinal:: Reports: Hematochezia, - - Periodic OK bleed, red no melena No reflux symptoms. [...] transfused with packed red cells in 2016 for severe symptomatic anemia patient req uired [...] and Lateral Result: Comments: See Note; NOTES: [facility] Imaging Services [address] [place] [address] Chest PA and Lateral MR#: [id number] Acct: [id number] Name: GABBI ROLLE Rep #: [id number] : 1945 F 71 From: Ariane Crook MD PCP: Sara Swartz Status: REG CLI Study: Chest PA and Lateral Date of Exam: 03/26/17 Exam# [id number] Ordering Dr: Niraj Raymundo MD STUDY: X-RAY [...] Ariane Crook MD at 20:49 EDT Tel [phone], Service support , CC: Sara Swartz; Niraj Raymundo MD Tightening Machine Operator: Signed 05-Mar-2017 Venous Duplex Lower Extremity Result: Comments: See Note; NOTES: [facility] Cardiovascular Services [address] [place] [address] Venous Duplex US, Unilateral 03/05/17 1427 MR#: [id number] Acct: [id number] Name: GABBI MCGOVERN Rep #: [id number] : 1945 71 From: Francisco Ji MD Attending Dr: Heron Hobbs Status: REG CLI Ordering Dr: Heron Hobbs MD Date: 03/05/17 Location: [facility] Sex: F C Admitted: Reason For [...] 1602 Date Francisco Ji MD CC: Sara Hobbs Date Dictated: 03/05/17 1427 Date Transcribed: 03/05/171601 Tightening Machine Operator: Signed 04-Feb-2017 Kidney and Bladder Result: Comments: See Note; NOTES: [facility] Imaging Services [address] [place] [address] Verdana 4d Kidney and Bladder MR#: [id number] Acct: [id number] Name: GABBI ROLLE Rep # : [id number] : 1945 F 71 From: Irvin Galarza DO PCP: Sara Swartz Status: REG CLI Study: Kidney and Bladder Date of Exam: 02/04/17 Exam# [id number] Ordering Dr: Natalia Mccurdy DO STUDY: RENAL ULTRAS OUND - COMPLETE REASON FOR EXAM: Female, 71 years old. Chronic kidney disease stage III TECHNIQUE: Ultrasound evaluation of the kidneys was performed with real-time and static ruggiero-scale imaging. COM PARISON: None. FINDINGS: RIGHT KIDNEY: Normal location [...] Irvin Galarza DO at 22:55 EDT Tel [phone], Service support , CC: Sara Swartz; Natalia Mccurdy DO Tightening Machine Operator: Signed 09-Dec-2016 Emergency Department Summary Result: Comments: See Note; NOTES: [facility] Medical Records Department [address] [place] [address] Emergency Department Summary MR#: [id number] Acct: [id number] Name: FINA ROLLE Rep #: [id number] : 1945 71 From: Maral Palacios MD [...] troponin. 3. Dehydration. Maral Palacios MD T: [facility] JOB: [id number] 12/09/1628 <Electronically signed by Maral Palacios MD> Date Maral Palacios MD Cosigner Signature (If Indicated ): Date CC: Sara Swartz Date Dictated: 12/09/16703 Date Transcribed: 12/09/16703 Tightening Machine Operator: Signed 09-Dec-2016 Chest PA and Lateral Result: Comments: See Note; NOTES: [facility] Imaging Services [address] [place] [address] Verdana 4d Chest PA and Lateral MR#: [id number] Acct: [id number] Name: GABBI ROLLE Rep #: [id number] : 1945 F 71 From: Aaron Kenyon MD PCP: Sara Swartz Status: REG ER Study: Chest PA and Lateral Date of Exam: 12/09/16 Exam# [id number] Ordering Dr: Maral Palacios MD STUDY: X-RAY [...] Tel , Service support , Fa x [phone] CC: Sara Swartz; Maral Palacios MD Tightening Machine Operator: Signed 10-Sep-2016 Stress Test Echo w/o Contrast Result: Comments: See Note; NOTES: [facility] Cardiovascular Services [address] [place] [address] [facility] 4d Stress Test Echo w/o Contrast MR#: [id number] Acct: [id number] Name: GABBI WAY Rep #: [id number] : 1945 71 From: Niraj Raymundo MD [...] Dictated: 09/10/16 1258 Date Transcribed: 09/10/16 1523 Tightening Machine Operator: Signed 27-Jul-2016 Bilat Scrn Digital AND CAD Result: Comments: See Note; NOTES: [facility] Imaging Services [address] [place] [address] Verdana 4d Bilat Scrn Digital AND CAD MR#: [id number] Acct: [id number] Name: GABBI ROLLE Rep #: [id number] : 1945 F 71 From: Irvin Cho MD PCP: Jacinto Sheehan Status: REG CLI Study: Bilat Scrn Digital AND CAD Date of Exam: 07/27/16 Exam# [id number] Ordering Dr: Jacinto Sheehan MAMMOGRAPHY - BILATERAL [...] the prior study. ORDER #: [id number] HPBI/Bilat Scrn Digital AND CAD IMPRESSION: Stable bilateral screening mammogram. Yearly follow-up mammogram recommended. (A) ASSESSMENT CATEGORY: BIRADS Cat egory 2: Benign. A letter regarding these results will be sent to the patient by the facility within 30 days. Approximately 10% of breast cancers are not detected by mammography. A normal mammogram jono uld not delay biopsy of a clinically suspicious abnormality. [id number] Electronically Signed: Irvin Cho MD at 10:02 EST Tel [phone], Service support [phone], CC: Jacinto Sheehan Tightening Machine Operator: Signed 11-Apr-2016 Dexa Bone Density/Append Skel Result: Comments: See Note; NOTES: [facility] Imaging Services [address] [place] [address] Verdana 4d Dexa Bone Density/Append Skel MR#: [id number] Acct: [id number] Name: SHYAM ROLLE Rep #: [id number] : 1945 F 70 From: Irvin Cho MD PCP: Jacinto Sheehan Status: REG CLI Study: Dexa Bone Density/Append Skel Date of Exam: 04/11/16 Exam# [id number] Ordering Dr: Jacinto Sheehan STUDY: DUAL ENERGY [...] Irvin Cho MD at 11:29 EDT Tel [phone], Ser vice support [phone], CC: Jacinto Sheehan Tightening Machine Operator: Signed 26-Dec-2015 Liver Result: Comments: See Note; NOTES: [facility] Imaging Services [address] [place] [address] Verdana 4d Liver MR#: [id number] Acct: [id number] Name: GABBI ROLLE [address] Rep # : [id number] : 1945 F 70 From: Irvin Cho MD PCP: Brittany Abraham DO Status: REG CLI Study: Liver Date of Exam: 12/26/15 Exam# [id number] Ordering Dr: Brittany Abraham DO STUDY: ABDOMINAL [...] Irvin Cho MD at 12:58 EDT Tel [phone], Service support [phone], CC: Brtitany Abraham DO Tightening Machine Operator: Signed 25-Jul-2015 Bilat Scrn Digital AND CAD Result: Comments: See Note; NOTES: [facility] Imaging Services [address] [place] [address] Verdana 4d Bilat Scrn Digital AND CAD MR#: [id number] Acct: [id number] Name: GABBI ROLLE Rep #: [id number] : 1945 F 70 From: Irvin Cho MD PCP: Brittany Abraham DO Status: REG CLI Study: Bilat Scrn Digital AND CAD Date of Exam: 07/25/15 Exam# [id number] Therese trujillo Dr: Brittany Abraham DO MAMMOGRAPHY [...] delay biopsy of a clinically suspicious abnormality. [id number] Electronically Signed: Irvin Cho MD at 8:59 EST Tel [phone], Service support [phone], CC: Brittany Abraham DO Tightening Machine Operator: Signed 22-Jun-2015 Carotid Duplex Ultrasound Result: Comments: See Note; NOTES: [facility] Cardiovascular Services [address] [place] [address] Carotid Duplex Ultrasound 06/17/15 0851 MR#: [id number] Acct: [id number] Name: GABBI ROLLE Rep #: [id number] : 1945 70 From: Sharath Mortensen MD [...] the left vertebral artery. Procedure Carotid Duplex 63832. The exam was diagnostic. The study was technically difficult. Due to body habitus. Interpretation Summary Mild (<50%) stenosis right extracranial internal carotid. Mild (<50%) stenosis left extracranial i nternal carotid. Flow within the vertebral arteries is antegrade bilaterally. Ordering Physicia n: Brittany Abraham Performed By: Candida Mcguire, HAL, RVT 06/22/1540 Date Br ett Gordo Mortensen MD CC: Brittany Abraham DO Date Dictated: 06/17/15 0851 Date Transcribed: 06/22/15739 Tightening Machine Operator: Signed 24-Mar-2015 Pulmonary Function Report Comp Result: Comments: See Note; NOTES: [facility] Pulmonary Services/Neurology [address] [place] [address] Pulmonary Function Test (Comp) MR#: [id number] Acct: [id number] Name: GABBI WAY Rep #: [id number] : 1945 69 From: Pako Andre MD Referring Dr: Brittany Abraham DO Status: REG CLI Ordering Dr: Brittany Abraham DO Date: 03/22/15 Location: [facility] Sex: F C DATE OF SER VICE: [...] with pulmonary edema. PAKO ANDRE MD T: [facility] JOB: [id number] SPIROMETRY Ref ULN/LLN Pre Pre Post Post [...] Long (pk/yrs): Stopped (yrs): Cigarettes: Cigars: 01/31 0705 <Electronically signed by Pako Andre MD> Date Pako Andre MD CC: Pako Andre MD; Brittany Abraham DO Date Dictated: 1553 Date Transcribed: 03/22/151553 Tightening Machine Operator: Signed 11-Mar-2015 Echocardiogram Complete Result: Comments: See Note; NOTES: [facility] Cardiovascular Services [address] [place] [address] Echo Complete 03/11/15 1108 MR#: [id number] Acct: [id number] Name: Alvina ROLLE Rep #: [id number] : 1945 69 From: Niraj Raymundo MD Attending Dr: Rigoberto BALDWIN,Niraj Status: REG CLI Ordering Dr: Niraj Raymundo MD Date: 03/11/15 Location: [facility] Sex: F C Admitted: Rita fernandez [...] Dictated: 03/11/15 1108 Date Transcribed: 03/11/15 1247 Tightening Machine Operator: Signed 23-Jul-2014 Suha Terry Digital & CAD Result: Comments: See Note; NOTES: [facility] Imaging Services [address] [place] [address] Breast Imaging Report MR#: [id number] Acct: [id number] Name: GABBI ROLLE Rep #: [id number] : 1945 F 69 From: Irvin Cho MD PCP: Brittany Abraham DO Status: REG CLI Exam# [id number] Ordering Dr: Brittany Abraham DO MAMMOGRAPHY - [...] small lymph nodes. CC: Brittany Abraham DO Tightening Machine Operator: Signed 29-Jun-2014 Knee 4 or More Views Result: Comments: See Note; NOTES: [facility] Imaging Services [address] [place] [address] Radiology Report MR#: [id number] Acct: [id number] Name: GABBI ROLLE Rep #: [id number] : 1945 F 69 From: Po Segovia DO PCP: Brittany Abraham DO Status: REG CLI Study: Knee 4 or More Views Date of Exam: 06/29/14 Exam# [id number] Ordering Dr: Brittany Abraham DO STUDY: X-RAY [...] at 6:27 EST Tel , Service support [phone], CC: Brittany Abraham DO Tightening Machine Operator: Signed 29-Jun-2014 Knee 4 or More Views Result: Comments: See Note; NOTES: [facility] Imaging Services [address] [place] [address] Radiology Report MR#: [id number] Acct: [id number] Name: GABBI ROLLE Rep #: [id number] : 1945 F 69 From: Po Segovia DO PCP: Brittany Abraham DO Status: REG CLI Study: Knee 4 or More Views Date of Exam: 06/29/14 Exam# [id number] Ordering Dr: Brittany Abraham DO STUDY: X-RAY [...] 6:35 EST Tel , Service [place] pport [phone], CC: Brittany Abraham DO Tightening Machine Operator: Signed 08-Feb-2014 OT Discharge Summary Result: Comments: See Note; NOTES: [facility] Occupational Therapy Health[address] [place], [place] [address] Fax REHABILITATION SERVIC ES DISCHARGE SUMMARY MR#: [id number] Acct: [id number] Name: GABBI ROLLE Rep #: [id number] : 1945 68 From: Flavia Metz Referring Dr.: Brittany Abraham DO Status: PRE RCR Eval Date: Date: DATE OF SERVICE: PHYSICIAN: Brittany Abraham [...] was to receive compression g arments through [facility]. The order was faxed over to them for the compression garments. However, unaware if the patient received those garments. At this time, again the patient was to return fo r followup visits to ensure proper fitting of compression hose. At this time, she has not done so and is discharged. Flavia Metz, OTR/L T: [facility] JOB: [id number] <Electronically signed by Flavia Metz > 02/08/14 1513 CC: Signed 22-Dec-2013 Initial Evaluation - OT Result: Comments: See Note; NOTES: [facility] Occupational Therapy [facility] [address] [place] [address] Fax REHABILITATION SERVIC INITIAL EVALUATION MR#: [id number] Acct: [id number] Name: GABBI ROLLE Rep #: [id number] : 1945 68 From: Flavia Metz Referring Dr.: Brittany Abraham DO Status: DIS RCR Insurance: [employer] PART A B Eval Date: [facility] DATE OF SERVICE: 12/15/2013 PHYSICIAN: Brittany Abraham [...] needs and demonstrate level of understanding. Flavia Metz, OTR/L T: ANA JOB: [id number] <Electr onically signed by Flavia Metz > 12/22/13 1311 CC: Signed For Medicare only, by signing this I certify the plan of care. Physicians Signature Date 14-Dec-2013 Liver Result: Comments: See Note; NOTES: [facility] Imaging Services [address] [place] [address] Ultrasound Report MR#: [id number] Acct: [id number] Name: GABBI ROLLE Rep #: [id number] : 1945 F 68 From: Irvin Cho MD PCP: Brittany Abraham DO Status: REG CLI Study: Liver Date of Exam: 12/14/13 Exam# [id number] Ordering Dr: Brittany Abraham DO STUDY: ABDOMINAL [...] Irvin Cho MD at 10:02 EDT Tel [phone], Service support [phone], CC: Brittany Abraham DO Tightening Machine Operator: Signed 18-Nov-2013 Chest PA and Lateral Result: Comments: See Note; NOTES: [facility] Imaging Services [facility] [place] [address] Radiology Report MR#: [id number] Acct: [id number] Name: GABBI ROLLE Rep #: [id number] : 1945 F 68 From: Irvin Cho MD PCP: Brittany Abraham DO Status: REG CLI Study: Chest PA and Lateral Date of Exam: 11/18/13 Exam# [id number] Ordering Dr: Sara Swartz STUDY: X-RAY CHEST [...] M.D. at 15:41 EDT , Service support [phone], CC: Sara Swartz; Brittany Abraham DO Tightening Machine Operator: Signed 03-Nov-2013 Chest PA and Lateral Result: Comments: See Note; NOTES: [facility] Imaging Services [address] [place] [address] Radiology Report MR#: [id number] Acct: [id number] Name: GABBI ROLLE Rep #: [id number] : 1945 F 68 From: Irvin Cho MD PCP: Brittany Abraham DO Status: [facility] CLI Study: Chest PA and Lateral Date of Exam: 11/03/13 Exam# [id number] Ordering Dr: Brittany Abraham DO STUDY: X- [...] M.D. at 11:18 EDT , Service support [phone], Fax CC: Brittany Abraham DO Tightening Machine Operator: Signed 30-Jul-2013 Bilat Scrn Digital & CAD Result: Comments: See Note; NOTES: [facility] Imaging Services [address] [place] [address] Breast Imaging Report MR#: [id number] Acct: [id number] Name: GABBI ROLLE Rep #: [id number] : 1945 F 68 From: Irvin Cho MD PCP: Brittany Abraham DO Status: REG CLI Exam# [id number] Ordering Dr: Brittany Abraham DO MAMMOGRAPHY - [...] at 8:11 EST Tel , Service support [phone], CC: Brittany Abraham DO Tightening Machine Operator: Signed 30-Jul-2013 Dexa Bone Density Study (HP) Result: Comments: See Note; NOTES: [facility] Imaging Services [address] [place] [address] Bone Density Report MR#: [id number] Acct: [id number] Name: GABBI ROLLE Rep #: [id number] : 1945 F 68 From: Irvin Cho MD PCP: Brittany Abraham DO Status: [facility] CLI Study: Dexa Bone Density Study (HP) Date of Exam: 07/30/13 Exam# [id number] Ordering Dr: Brittany Abraham DO STUDY: DUAL ENERGY X-RAY ABSORPTIOMETRY / DXA REASON FOR EXAM: Female, 68 years old. Osteopenia. TECHNIQUE: Bone Mineral Density (BMD) measurements of lumbar spine and bilateral hips were obtaine dYuli COMPARISON: Comparison is made with prior [...] M.D. at 9:58 EST , Service support [phone], CC: Brittany Abraham DO Tightening Machine Operator: Signed Immunization Name Dates Details Influenza (3 years and up) on: 13-Jun-2007 Influenza (3 years and up) on: 19-May-2009 Pneumococcal (2 years and up) on: 02-Aug-2008 Comments: Lot #[id number] date:mount given:0.5Site given: right deltoidGiven by:Chidi. Social History Name Dates Details No Caffeine [...] Height 0 in Head Circumference 0.00 cm :15 Temperature 97.6 f Comments: Method: Oral Pulse [...] 0.00 cm Results Date Description Value Details :55 CBC W/Diff, Automated Comments: Reason for Laboratory Test .[facility] [address] [place], [address] Absolute Lymph 1.33 {X10_3/ul} (Normal) Range: 0.83-4.51 Absolute Neut 4.6 {X10_3/uL} (Normal) Range: 2.0-7.7 IM GRAN % 0.000 % (Normal) Range: 0.0-0.9 Comments: IG% - Immature Granulocytes (promyelocytes, myelocytes andmetamyelocytes) > 1% indicates that a LEFT SHIFT is Present. BASO% 0.3 % (Normal) Range: 0-1 EO% 2.4 % (Normal) Range: 0-5 MONO% 3.3 % (Normal) Range: 0-10 LY% 21.2 % (Normal) Range: 19-41 NEUT% 72.8 % (Abnormal) Range: 47-70 MPV 12.6 fL (Abnormal) Range: 6.2-12.0 PLT 146 K/mm3 (Abnormal) Range: 150-450 RDW SD 56.6 fL (Abnormal) Range: 35.1-43.9 RDW CV 16.4 % (Abnormal) Range: 11.6-14.6 MCHC 30.6 {g/gl} (Abnormal) Range: 32-36 MCH 28.8 pg (Normal) Range: 27.0-32.0 MCV 93.9 fL (Normal) Range: 81-99 HCT 35.6 % (Abnormal) Range: 37-47 HGB 10.9 g/dL (Abnormal) Range: 12.0-15.0 RBC 3.79 {M/mm3} (Abnormal) Range: 4.2-5.4 WBC 6.3 K/mm3 (Normal) Range: 4.4-11.0 1-Yib-144348:55 Ferritin Comments: Reason for Laboratory Test .[facility] [address] [place], [place], [address] FERRITIN 73 ng/mL (Normal) Range: 8-252 4-Wkh-181926:55 Iron+Iron Binding Capacity Comments: Reason for Laboratory Test .[facility] [address] [place], [place], [address] IRON SATURATION 16.9 % (Normal) Range: 15.0-55.0 IRON 56 ug/dL (Normal) Range: 50-170 TIBC 331 ug/dL (Normal) Range: 250-450 5-Jbd-924622:08 Renal Profile Comments: [facility] [address] [place], [place], [address] CO2 27.0 mmol/L (Normal) Range: 21.0-32.0 CL 109 mmol/L (Abnormal) Range: 98-107 K 4.1 mmol/L (Normal) Range: 3.5-5.1 NA 143 mmol/L (Normal) Range: 136-145 PHOS 3.3 mg/dL (Normal) Range: 2.5-4.9 CA 8.9 mg/dL (Normal) Range: 8.5-10.1 ALB 3.7 g/dL (Normal) Range: 3.2-5.0 BUN/CRE 21.4 {RATIO} (Abnormal) Range: 10-20 Estimated CRCL 27.32 ml/min (Normal) EST GFR - AA 37 mL/min (Abnormal) Comments: GFR Calc EST GFR 31 mL/min (Abnormal) Comments: Non- GFR Calc CREAT,SERUM 1.73 mg/dL (Abnormal) Range: 0.55-1.02 Comments: The validity of the calculated GFR AND GFRAA in patients over70 years has not been determined. Clinical correlation isessential. BUN 37 mg/dL (Abnormal) Range: 7-18 GLU 104 mg/dL (Normal) Range: 74-106 Comments: Fasting Glucose result from 100 to 125 mg/dLsuggests IMPAIRED HOMEOSTASIS per A.D.A. criteria.Please note revised GLUCOSE reference range /02/2018. 7-Hzd-092941:06 CBC W/Diff, Automated Comments: Reason for Laboratory Test .[facility] [address] [place], [address] Absolute Lymph 0.89 {X10_3/ul} (Normal) Range: 0.83-4.51 Absolute Neut 4.2 {X10_3/uL} (Normal) Range: 2.0-7.7 IM GRAN % 0.000 % (Normal) Range: 0.0-0.9 Comments: IG% - Immature Granulocytes (promyelocytes, myelocytes andmetamyelocytes) > 1% indicates that a LEFT SHIFT is Present. BASO% 0.2 % (Normal) Range: 0-1 EO% 2.2 % (Normal) Range: 0-5 MONO% 6.3 % (Normal) Range: 0-10 LY% 16.1 % (Abnormal) Range: 19-41 NEUT% 75.2 % (Abnormal) Range: 47-70 MPV 12.4 fL (Abnormal) Range: 6.2-12.0 PLT 161 K/mm3 (Normal) Range: 150-450 RDW SD 53.3 fL (Abnormal) Range: 35.1-43.9 RDW CV 15.6 % (Abnormal) Range: 11.6-14.6 MCHC 30.4 {g/gl} (Abnormal) Range: 32-36 MCH 28.5 pg (Normal) Range: 27.0-32.0 MCV 93.9 fL (Normal) Range: 81-99 HCT 33.9 % (Abnormal) Range: 37-47 HGB 10.3 g/dL (Abnormal) Range: 12.0-15.0 RBC 3.61 {M/mm3} (Abnormal) Range: 4.2-5.4 WBC 5.5 K/mm3 (Normal) Range: 4.4-11.0 :06 Ferritin Comments: Reason for Laboratory Test .[facility] [address] [place], [place], [address] FERRITIN 66 ng/mL (Normal) Range: 8-252 4-Dsm-294419:06 Iron+Iron Binding Capacity Comments: Reason for Laboratory Test .[facility] [address] [place], [address] IRON SATURATION 14.1 % (Abnormal) Range: 15.0-55.0 IRON 45 ug/dL (Abnormal) Range: 50-170 TIBC 320 ug/dL (Normal) Range: 250-450 :34 HgA1C , Office (58970) HgA1C , Office 5.4 % (Normal) Range: 4.6 - 7.1 :34 Blood Glucose , Office (75020) Blood Glucose , Office 145 (Normal) 90-Ggd-459381:14 Basic Metabolic Profile (BMP) Comments: [facility] [address] [place], [place], [address] GAP 8 (Normal) Range: 5-15 CO2 28.0 [...] A.D.A. criteria.Please note revised GLUCOSE reference range ncpqbhnoz56/02/2018. 34-Wmc-408107:14 PTHIN 127.7 pg/mL (Abnormal) Comments: [facility] [address] [facility]. [place], [place], [address] Range: 18.4-80.1 63-Srk-600208:47 Basic Metabolic Profile (BMP) Comments: [facility] X[address]jnm15[address] [facility]. [place], [place], [address] GAP 7 (Normal) Range: 5-15 CO2 25.0 [...] A.D.A. criteria.Please note revised GLUCOSE reference range edxmaanno01/02/2018. 42-Nqw-170180:47 Renal Profile Comments: [facility] [address] [place], [place], [address] CO2 25.0 mmol/L (Normal) Range: 21.0-32.0 CL [...] A.D.A. criteria.Please note revised GLUCOSE reference range fonpqbaoi66/02/2018. 65-Wqq-930652:46 CBC W/Diff, Automated Comments: Reason for Laboratory Test .[facility] [address] [place], [place], [phone] Absolute Lymph 0.69 {X10_3/ul} (Abnormal) Range: 0.83-4.51 [...] 4.2-5.4 WBC 4.6 K/mm3 (Normal) Range: 4.4-11.0 58-Tqq-280822:46 Ferritin Comments: Reason for Laboratory Test .[facility] [address] [place], [place], [address] FERRITIN 55 ng/mL (Normal) Range: 8-252 75-Alh-069678:46 Iron+Iron Binding Capacity Comments: Reason for Laboratory Test .[facility] [address] [facility] [address] [place], [place], [address] IRON SATURATION 13.4 % (Abnormal) Range: 15.0-55.0 IRON 47 ug/dL (Abnormal) Range: 50-170 TIBC 350 ug/dL (Normal) Range: 250-450 15-Gjz-022749:45 Partial Thromboplast Time Comments: [address] [place], [place], [address] PTT 44.5 s (Abnormal) Range: 24.1-36.2 78-Akl-837343:45 Prothrombin Time w/INR Comments: [facility] [address] [place], [address] INR 1.2 (Normal) PROTIME 15.0 s (Abnormal) Range: 11.7-14.9 4-Cpw-229939:16 Renal Profile Comments: [facility] [address] [place], [address] CO2 24.0 mmol/L (Normal) Range: 21.0-32.0 CL [...] A.D.A. criteria.Please note revised GLUCOSE reference range tywhjpgcr39/02/2018. 1-Fkr-550253:15 CBC W/Diff, Automated Comments: Reason for Laboratory Test .[facility] [address] [place], [address] Absolute Lymph 0.91 {X10_3/ul} (Normal) Range: 0.83-4.51 [...] 4.2-5.4 WBC 4.2 K/mm3 (Abnormal) Range: 4.4-11.0 2-Rnq-288624:15 Ferritin Comments: Reason for Laboratory Test .[facility] [address] [facility] [address] [place], [place], [address] FERRITIN 44 ng/mL (Normal) Range: 8-252 8-Dju-530209:15 Iron+Iron Binding Capacity Comments: Reason for Laboratory Test .[facility] [address] [facility] [address] [place], [place], [address] IRON SATURATION 11.8 % (Abnormal) Range: 15.0-55.0 IRON 42 ug/dL (Abnormal) Range: 50-170 TIBC 355 ug/dL (Normal) Range: 250-450 47-Pwf-466017:22 CBC W/Diff, Automated Comments: Reason for Laboratory Test DRAW BLOODBANK TUBE FOR TYPE AND [facility] [address] [place], [place], [address] Absolute Lymph 0.76 {X10_3/ul} (Abnormal) Range: 0.83-4.51 [...] 4.2-5.4 WBC 5.7 K/mm3 (Normal) Range: 4.4-11.0 9-Ekw-485625:39 Renal Profile Comments: [facility] [address] [place], [place], [address] CO2 24.0 mmol/L (Normal) Range: 21.0-32.0 CL [...] A.D.A. criteria.Please note revised GLUCOSE reference range hiziplzib81/02/2018. 9-Bch-692647:04 CBC W/Diff, Automated Comments: Reason for Laboratory Test .[facility] [address] [place], [place], [address] Absolute Lymph 0.85 {X10_3/ul} (Normal) Range: 0.83-4.51 [...] 4.2-5.4 WBC 5.4 K/mm3 (Normal) Range: 4.4-11.0 3-Seg-193905:04 Ferritin Comments: Reason for Laboratory Test .[facility] [address] [facility] [address] [place], [place], [address] FERRITIN 135 ng/mL (Normal) Range: 8-252 7-Xyq-391118:04 Iron+Iron Binding Capacity Comments: Reason for Laboratory Test .[facility] [address] [place], [place], [address] IRON SATURATION 31.9 % (Normal) Range: 15.0-55.0 IRON 117 ug/dL (Normal) Range: 50-170 TIBC 367 ug/dL (Normal) Range: 250-450 93-Myf-201194:26 CBC W/Diff, Automated Comments: [facility] [address] [place], [place], [phone] Absolute Lymph 0.86 {X10_3/ul} (Normal) Range: 0.83-4.51 [...] 4.2-5.4 WBC 5.8 K/mm3 (Normal) Range: 4.4-11.0 33-Dkp-335545:26 Comprehensive Metabolic Profil Comments: [facility] [address] [place], [place], [address] GAP 7 (Normal) Range: 5-15 CO2 27.0 [...] A.D.A. criteria.Please note revised GLUCOSE reference range wunauiybw80/02/2018. 37-Xvm-585570:36 Ferritin Comments: Reason for Laboratory Test .[facility] [address] [place], [place], [address] FERRITIN 54 ng/mL (Normal) Range: 8-252 48-Did-002121:36 Iron+Iron Binding Capacity Comments: Reason for Laboratory Test .[facility] [address] [place], [place], [phone] IRON SATURATION 12.7 % (Abnormal) Range: 15.0-55.0 IRON 42 ug/dL (Abnormal) Range: 50-170 TIBC 331 ug/dL (Normal) Range: 250-450 07-Mmb-122770:21 CBC-Complete Blood Cnt No Diff Comments: [facility] [address] [place], [place], [address] MPV 10.8 fL (Normal) Range: 6.2-12.0 PLT [...] 4.2-5.4 WBC 6.2 K/mm3 (Normal) Range: 4.4-11.0 2-Rdy-759863:15 CBC W/Diff, Automated Comments: [facility] [address] [place], [place], [phone] Absolute Lymph 0.79 {X10_3/ul} (Abnormal) Range: 0.83-4.51 [...] 4.2-5.4 WBC 7.0 K/mm3 (Normal) Range: 4.4-11.0 7-Hvo-422713:15 Comprehensive Metabolic Profil Comments: [facility] [address] [place], [place], [address] GAP 8 (Normal) Range: 5-15 CO2 21.0 [...] A.D.A. criteria.Please note revised GLUCOSE reference range sfawtjeih20/02/2018. 2-Wyo-403769:15 Lactic Acid Comments: Yes/No query for Sepsis Lactate Rule [facility] [address] [place], [place], [address] LACTIC ACID 2.1 mmol/L (Abnormal) Range: 0.4-2.0 Comments: Critical Result(s) Called at: 10:59:09 02/23/2018 by: Juve House RN 1-Xcu-350119:15 Partial Thromboplast Time Comments: [facility] [address] [place], [place], [address] PTT 36.8 s (Abnormal) Range: 24.1-36.2 9-Vvk-381203:15 Prothrombin Time w/INR Comments: [facility] [address] [place], [address] INR 1.2 (Normal) PROTIME 15.2 s (Abnormal) Range: 11.7-14.9 2-Kkq-568639:15 Troponin-I Comments: [facility] [address] [place], [place], [address] TROPONIN-I < 0.015 ng/mL (Normal) Comments: TROPONIN-I EXPECTED VALUES <0.045 Negative 0.045 - 0.590 Consistent with Cardiac Damage > OR = 0.600 Critical Value Not every elevated troponin is indicative of CA. T hesevalues should be used with clinical judgement in examiningthe patient's clinical picture for diagnosis. To establisha diagnosis of CA versus myocardial injury, there must be ademonstrated rise and/ or fall in the troponin values, inaddition to ischemic symptoms, EKG changes, new regionalwall motion abnormality, and/or angiographical evidence. PLEASE NOTE: REFERENCE RANGES EDITED 12/30/1717-Feb-20180-Wrp-859070:10 CBC W/Diff, Automated Comments: CMP, CBCD, PT FOR DR BOOKER ARE FOR [facility] [address] [place], [place], [address] Absolute Lymph 0.84 {X10_3/ul} (Normal) Range: 0.83-4.51 [...] 4.2-5.4 WBC 6.6 K/mm3 (Normal) Range: 4.4-11.0 4-Mjd-485476:10 Comprehensive Metabolic Profil Comments: CMP, CBCD, PT FOR DR BOOKER [facility] [address] [place], [place], [address] GAP 8 (Normal) Range: 5-15 CO2 25.0 [...] A.D.A. criteria.Please note revised GLUCOSE reference range hwavcfmyo85/02/2018. 7-Qyh-623433:10 Ferritin Comments: CMP, CBCD, PT FOR DR BOOKER [facility] [address] [place], [address] FERRITIN 60 ng/mL (Normal) Range: 8-252 2-Fxx-949486:10 Iron+Iron Binding Capacity Comments: CMP, CBCD, PT FOR DR BOOKER [facility] [address] [place], [address] IRON SATURATION 13.0 % (Abnormal) Range: 15.0-55.0 IRON 44 ug/dL (Abnormal) Range: 50-170 TIBC 339 ug/dL (Normal) Range: 250-450 7-Dla-948034:10 Prothrombin Time w/INR Comments: CMP, CBCD, PT FOR DR BOOKER [facility] [address] [place], [address] INR 1.2 (Normal) PROTIME 15.3 s (Abnormal) Range: 11.7-14.9 94-Wbl-893855:25 Basic Metabolic Profile (BMP) Comments: [facility] [address] [place], [address] GAP 9 (Normal) Range: 5-15 [...] A.D.A. criteria.Please note revised GLUCOSE reference range tjpdihkoq56/02/2018. 26-Ptw-834388:25 CBC W/Diff, Automated Comments: [facility] [address] [place], [address] PATH REV Reviewed (Normal) Comments: Severe Macrocytic [...] CRITICAL VALUE VERIFIED. CALLED TO LELE SIN02/04/18 1147 Billie Hays.RESULTS READ BACK BY SAME . RBC 1.86 {M/mm3} (Abnormal) Range: 4.2-5.4 WBC 7.5 K/mm3 (Normal) Range: 4.4-11.0 21-Lsc-468837:25 Prothrombin Time w/INR Comments: [facility] [address] [place], [place], [address] INR 3.7 (Abnormal) Comments: CRITICAL VALUE VERIFIED. CALLED TO LELE DILL06 [address].RESULTS READ BACK BY SAME . PROTIME 37.0 s (Abnormal) Range: 11.7-14.9 62-Amf-683067:26 Basic Metabolic Profile (BMP) Comments: Send Results To: Gerry Swartz for Laboratory Test CKD, hypokalemiaWOhioHealth Pickerington [facility] Hospital [address] [place], [address] GAP 8 (Normal) Range: 5-15 CO2 28.0 [...] A.D.A. criteria.Please note revised GLUCOSE reference range ctlczunbf56/02/2018. 96-Bvy-224823:25 CBC W/Diff, Automated Comments: Reason for Laboratory Test .[facility] [address] [place], [place], [address] Absolute Lymph 1.02 {X10_3/ul} (Normal) Range: 0.83-4.51 [...] 4.2-5.4 WBC 6.4 K/mm3 (Normal) Range: 4.4-11.0 91-Jqp-523623:25 Ferritin Comments: Reason for Laboratory Test .[facility] [address] [place], [address] FERRITIN 109 ng/mL (Normal) Range: 8-252 13-Ica-992697:25 Iron+Iron Binding Capacity Comments: Reason for Laboratory Test .[facility] [address] [place], [address] IRON SATURATION 26.7 % (Normal) Range: 15.0-55.0 IRON 92 ug/dL (Normal) Range: 50-170 TIBC 345 ug/dL (Normal) Range: 250-450 4-Ygy-709473:19 HgA1C , Office (83620) HgA1C , Office 5.1 % (Normal) Range: 4.6 - 7.1 7-Ozr-707737:18 Blood Glucose , Office (52871) Blood Glucose , Office 124 (Normal) 21-Jan-20180:00 Fluid/Washing See Note (Normal) Comments: [facility] [address] [place], [address] Comments: Patient: GABBI ROLLE : 1945 (72/F) Acct Num: [id number] Phys: Leslie BALDWIN,Carlos Unit Num: [id number] Loc: US Specimen: [id number] Received: 01/24/18846 Spec Type: Flu id TISSUES TISSUES: THORACIC FLUID CYTOLOGY GROSS Received is 695 ml of laquita cloudy fluid labeled with the patient's name and DOBand designated per the requisition as t horacentesis. Submitted for cytology preparation including cell block. / 01/23/18 TC:5 CPT: 81092, 29160 CYTOLOGY STUDY Slides are reviewed. The specimen [...] Comments: RESULT(S) PREVIOUSLY REPORTED ON MANUAL REQUISITION DURINGDOWNTIME.[facility] [address] [place], [place], [address] PTT 42.2 s (Abnormal) Range: 24.1-36.2 20-Jan-20189:30 Prothrombin Time w/INR Comments: RESULT(S) PREVIOUSLY REPORTED ON MANUAL REQUISITION DURINGDOWNTIME.[facility] [address] [place], [place], [address] INR 1.3 (Normal) PROTIME 16.2 s (Abnormal) Range: 11.7-14.9 33-Qfs-207839:55 Basic Metabolic Profile (BMP) Comments: [facility] [address] [place], [place], [address] GAP 9 (Normal) Range: 5-15 CO2 24.0 [...] A.D.A. criteria.Please note revised GLUCOSE reference range qahemjqjl73/02/2018. 19-Zzm-823614:55 BNP,B-Type NATRIURETIC PEPTIDE Comments: [facility] Opbofiavem[address] [facility] [place], [place], [phone] B-TYPE MARY JO PEP 208.1 pg/mL (Abnormal) Range: 0-100 62-Zto-293642:55 CBC W/Diff, Automated Comments: [facility] [address] [facility] [address] [place], [place], [phone] Absolute Lymph 0.56 {X10_3/ul} (Abnormal) Range: 0.83-4.51 [...] Range: 4.4-11.0 :44 Protime w/INR Fingerstick Comments: [facility] LaboratoryPoint [place] [address] [place] [address] INR ISTAT 1.20 (Normal) Comments: Critical Value > 3.5 PROTIME ISTAT 13.7 {SEC} (Normal) Range: 11.9-14.4 Comments: Reference Range 11.9 - 14.4 :43 Bedside Glucose Comments: [place] [address] [place] [address] BEDSIDE GLU 147 mg/dL (Abnormal) Range: 70-110 Comments: MANAGEMENT OF PATIENT CARE PER NURSING PROTOCOL 57-Tna-324214:01 CBC W/Diff, Automated Comments: Reason for Laboratory Test .[place] [address] [place], [address] Absolute Lymph 0.80 {X10_3/ul} (Abnormal) Range: [...] 4.2-5.4 WBC 7.1 K/mm3 (Normal) Range: 4.4-11.0 32-Omh-844122:01 Comprehensive Metabolic Profil Comments: Reason for Laboratory Test .[facility] [address] [place], [place], [address] GAP 6 (Normal) Range: 5-15 CO2 25.0 [...] A.D.A. criteria.Please note revised GLUCOSE reference range vywysuzrx00/02/2018. 53-Mcr-155285:01 Erythropoietin Comments: Reason for Laboratory Test .[facility] (refer to report for specific site)refer to report for address and phone number [facility] [id number] 105.6 m[iU]/mL (Abnormal) Range: 2.6-18.5 Comments: [employer] DxI 800 Immunoassay SystemPerformed at: [employer] [address] [id number] Director: Heron Almonte PhD, Phone: [phone] 40-Nvy-203344:01 Ferritin Comments: Reason for Laboratory Test .[facility] [address] [facility] [place], [place], [phone] FERRITIN 69 ng/mL (Normal) Range: 8-252 11-Fdi-896800:01 Iron+Iron Binding Capacity Comments: Reason for Laboratory Test .[facility] [address] [place], [place], [phone] IRON SATURATION 19.7 % (Normal) Range: 15.0-55.0 IRON 77 ug/dL (Normal) Range: 50-170 TIBC 391 ug/dL (Normal) Range: 250-450 27-Tnb-711670:06 Metabolic Panel, Comprehensive Comments: send to Dr. Mccurdy; PATIENT NOT FASTINGPERFORMED BY: [facility] [address] [id number] ([id number]) ALT (SGPT) 18 [iU]/L (Normal) Range: 0-32 [...] 8-27 Glucose 114 mg/dL (Abnormal) Range: 65-99 20-Poy-857277:06 TSH (THYROID STIMULATING Comments: send results to Dr. Bowers; PATIENT NOT FASTINGPERFORMED BY: [facility]CoSaint [facility] CenterPjeilw5595 [facility] [id number] HORMONE) ([id number]) TSH 3.420 {uIU/mL} (Normal) Range: 0.450-4.500 07-Lwc-436675:09 CBC W/Diff, Automated Comments: Reason for Laboratory Test .[facility] [address] [place], [place], [address] SMEAR COMMENT (Normal) Comments: SLIDE SCANNED - [...] 4.2-5.4 WBC 6.9 K/mm3 (Normal) Range: 4.4-11.0 42-Tqd-328611:09 Erythropoietin Comments: Reason for Laboratory Test .[facility] (refer to report for specific site)refer to report for address and phone number [facility] [phone] 51.6 m[iU]/mL (Abnormal) Range: 2.6-18.5 Comments: [employer] DxI 800 Immunoassay SystemPerformed at: - [facility] [address] [id number] Director: Heron Almonte PhD, Phone: [phone] 22-Fjn-076322:09 Ferritin Comments: Reason for Laboratory Test .[facility] [address] [place], [address] FERRITIN 43 ng/mL (Normal) Range: 8-252 52-Nzl-934254:09 Iron+Iron Binding Capacity Comments: Reason for Laboratory Test .[facility] [address] [place], [place], [address] IRON SATURATION 10.4 % (Abnormal) Range: 15.0-55.0 IRON 56 ug/dL (Normal) Range: 50-170 Comments: Slight Hemolysis, Result may be falsely increased. TIBC 536 ug/dL (Abnormal) Range: 250-450 89-Euq-253738:09 Retic Panel Comments: Reason for Laboratory Test .[facility] [address] [place], [place], [address] IPF 3.8 % (Normal) Range: 1.0-7.9 Comments: [...] 3.00-15.90 RETIC 5.76 % (Abnormal) Range: 0.5-1.5 79-Pwb-900589:55 Basic Metabolic Profile (BMP) Comments: 'TROP' Serial specimen #1, #2, #3, or #4: 1WOhio[facility] [address] [place], [place], [address] GAP 9 (Normal) Range: 5-15 CO2 23.0 [...] A.D.A. criteria.Please note revised GLUCOSE reference range umxccrail12/02/2018. 56-Xmk-392201:55 BNP,B-Type NATRIURETIC PEPTIDE Comments: [facility] [address] [place], [address] B-TYPE MARY JO PEP 217.5 pg/mL (Abnormal) Range: 0-100 20-Aev-093177:55 CBC W/Diff, Automated Comments: [facility] [address] [place], [address] MACROCYTE 1+ (Normal) POLYCHROMASIA 1+ (Normal) ANISO [...] 4.2-5.4 WBC 7.9 K/mm3 (Normal) Range: 4.4-11.0 76-Vfu-372631:55 Prothrombin Time w/INR Comments: [facility] [address] [place], [address] INR 2.4 (Normal) PROTIME 26.4 s (Abnormal) Range: 11.7-14.9 58-Hwv-878164:55 Troponin-I Comments: 'TROP' Serial specimen #1, #2, #3, or #4: [address] [place] [address] [address] [place], [address] TROPONIN-I < 0.02 ng/mL (Normal) Comments: TROPONIN-I EXPECTED VALUES <0.05 NEGATIVE 0.06 - 0.59 AT RISK OF CA > OR = 0.60 SUGGEST CA [id number] Basic Metabolic Profile (BMP) Comments: 'TROP' Serial specimen #1, #2, #3, or #4: [address] [place] [address] [id number] [place], [address] GAP 7 (Normal) Range: 5-15 CO2 24.0 [...] criteria.Please note revised GLUCOSE reference range /02/2018. [id number] BNP,B-Type NATRIURETIC PEPTIDE Comments: [facility] [id number] [place], [place], [id number] B-TYPE MARY JO PEP 226.6 pg/mL (Abnormal) Range: 0-100 [id number] CBC W/Diff, Automated Comments: [facility] [id number] [place], [address] SMEAR COMMENT SCANNED (Normal) Comments: 1+ ANISOCYTOSIS [...] Range: 4.4-11.0 :40 Prothrombin Time w/INR Comments: [facility] [id number] [place], [address] INR 2.8 (Normal) PROTIME 29.7 s (Abnormal) Range: 11.7-14.9 :40 Troponin-I Comments: 'TROP' Serial specimen #1, #2, #3, or #4: 1[facility] [id number] [place], [address] TROPONIN-I < 0.02 ng/mL (Normal) Comments: TROPONIN-I EXPECTED VALUES <0.05 NEGATIVE 0.06 - 0.59 AT RISK OF CA > OR = 0.60 SUGGEST CA [id number]-Vyl-[id number]:53 CBC W/Diff, Automated Comments: CMP,LIPID,FERRITIN,IRON,TIBC FOR CIESAReason for Laboratory [facility] [id number] [place], [address] HYPOCHROMASIA 2+ (Normal) POLYCHROMASIA RARE (Normal) ANISO [...] 4.2-5.4 WBC 6.5 K/mm3 (Normal) Range: 4.4-11.0 64-Zpr-[id number]:53 Comprehensive Metabolic Comments: CMP,LIPID,FERRITIN,IRON,TIBC FOR [facility] for Laboratory Test [facility] [id number] [place], [place], [id number] Profil GAP 8 (Normal) Range: 5-15 CO2 24.0 mmol/L (Normal) Range: 21.0-32.0 CL 107 mmol/L (Normal) Range: 98-107 K 4.3 mmol/L (Normal) Range: 3.5-5.1 NA 139 mmol/L (Normal) Range: 136-145 T BILI 0.50 mg/dL (Normal) Range: 0.20-1.00 ALT 17 U/L (Normal) Range: 13-56 Comments: Please note revised ALT reference range lohfipqcr30/28/2018. ALK P 76 U/L (Normal) Range: 45-117 [...] A.D.A. criteria.Please note revised GLUCOSE reference range xxnfgavwk07/02/2018. 24-Puo-60696:53 Ferritin Comments: CMP,LIPID,FERRITIN,IRON,TIBC FOR CIESAReason for Laboratory Test [facility] [address] [place], [address] FERRITIN 32 ng/mL (Normal) Range: 8-252 :53 Iron+Iron Binding Comments: CMP,LIPID,FERRITIN,IRON,TIBC FOR CIESAReason for Laboratory Test [facility] [address] [place], [address] Capacity IRON SATURATION 21.2 % (Normal) Range: 15.0-55.0 IRON 95 ug/dL (Normal) Range: 50-170 TIBC 449 ug/dL (Normal) Range: 250-450 :53 Lipid Profile Comments: CMP,LIPID,FERRITIN,IRON,TIBC FOR [facility] [address]wh[address] [place], [address] VLDL 24 mg/dL (Normal) Range: 5-40 [...] 200-240 mg/dL Borderline >240 mg/dL High Risk 5-Vtd-238060:54 Culture, Urine Comments: [facility] Womfpdcuqz7257 [facility] [address]. [place], [place], [id number] CUUR See Note (Normal) Comments: Urine CultureBelow infection level. ORGANISM 1: Mixed Gram Positive OrganismsColony Count 1000-10,000 :54 Urinalysis, Complete Comments: How was Urine Obtained? CLEAN [facility] Erhjnfokwc2498 [facility]. [place], [place], [id number] MUCUS, URINE 0 SEEN {/hpf} (Normal) BACTERIA [...] COLOR Yellow (Normal) :37 HgA1C , Office (34350) HgA1C , Office 5.5 % (Normal) Range: 4.6 - 7.1 :35 Blood Glucose , Office (02097) Blood Glucose , Office 170 (Normal) :12 Influenza A&B Viral Comments: PATIENT NOT FASTINGPERFORMED BY: Y[facility] Mhcqvk9556 [facility] [id number] Information: SRC:NL Culture (57756) Viral Culture,Rapid,Influenza FLUABN (Normal) Comments: Negative:No Influenza A or B detected. 79-Rfg-090970:40 Rapid Flu (78766 x 2) Influenza A Ag neg (Normal) 13-Erq-781845:16 CBC W/Diff, Automated Comments: Reason for Laboratory Test [facility] [address] [place], [address] ; Dr Khan Absolute Lymph 1.13 {X10_3/ul} [...] 4.2-5.4 WBC 9.6 K/mm3 (Normal) Range: 4.4-11.0 31-Kno-567728:16 Ferritin Comments: Reason for Laboratory Test [facility] Fzgeftxsso[address] [place] [place], [address] FERRITIN 33 ng/mL (Normal) Range: 8-252 85-Vro-286663:16 Iron+Iron Binding Capacity Comments: Reason for Laboratory Test [facility] Fjmuaofmev[address] [place], [address] IRON SATURATION 12.8 % (Abnormal) Range: 15.0-55.0 IRON 56 ug/dL (Normal) Range: 50-170 TIBC 436 ug/dL (Normal) Range: 250-450 43-Ypt-041667:16 Retic Panel Comments: Reason for Laboratory Test [facility] [address] [place], [address] IPF 3.1 % (Normal) Range: 1.0-7.9 Comments: [...] (Abnormal) Range: 0.5-1.5 :16 HgA1C , Office (03278) Comments: 5.6 HgA1C , Office 5.6 % (Normal) Range: 4.6 - 7.1 :16 Blood Glucose , Office (53958) Blood Glucose , Office 145 (Normal) :22 PT (PROTHROMBIN TIME) (68311) Comments: Standing order; PATIENT NOT FASTINGPERFORMED BY: [facility] Wwlocg3987 Buster ArtisFormerly [facility] Hospitalelysia [place] [id number] Prothrombin Time 11.5 {sec} (Normal) Range: 9.1-12.0 INR 1.1 (Normal) Range: 0.8-1.2 Comments: Reference interval is for non-anticoagulated patients. . Suggested INR therapeutic range for Vitamin K anta gonist therapy: Standard Dose (moderate intensity therapeutic range): 2.0 - 3.0 Higher intensity therapeutic range 2.5 - 3.5 :25 PT (PROTHROMBIN TIME) (94210) Comments: Standing order; PATIENT NOT FASTINGPERFORMED BY: [facility]CoSaint [facility]abas Medical CenterFlxnlf5165 [facility] [id number] Prothrombin Time 17.1 {sec} (Abnormal) Range: 9.1-12.0 INR 1.7 (Abnormal) Range: 0.8-1.2 Comments: Reference interval is for non-anticoagulated patients. . Suggested INR therapeutic range for Vitamin K anta gonist therapy: Standard Dose (moderate intensity therapeutic range): 2.0 - 3.0 Higher intensity therapeutic range 2.5 - 3.5 :[address] [facility] Comments: [facility] LaboratoryPoint [place] [address] [place], [place] [address] SO2 ISTAT 95 % (Normal) Range: 95-99 TOTAL CO2 ISTAT 24 mmol/L (Normal) BE ISTAT -2 mmol/L (Normal) HCO3 ISTAT 23.1 mmol/L (Normal) Range: 22-26 PO2 I-STAT 77 {mmHG} (Normal) Range: 75-100 pCO2 - ISTAT 37.5 {mmHg} (Normal) Range: 35-45 pH - I-STAT 7.40 (Normal) Range: 7.35-7.45 BLD GAS TYPE ART (Normal) :35 Venous Blood Gas Comments: [facility] LaboratoryPoint [address] [place], [place] [address] VBG O2 CT ISTAT 25 mmol/L (Normal) Range: 23-33 VBG SO2 ISTAT 58 % (Normal) Range: 50-70 VBG BE ISTAT -1 mmol/L (Normal) Range: -1.0-3.5 VBG HCO3 ISTAT 24 mmol/L (Normal) Range: 22-26 VBG PO2 I-STAT 30 {mmHg} (Normal) Range: 25-40 VBG pCO2 - ISTA 38.8 {mmHg} (Abnormal) Range: 41-51 VBGpH - I-STAT 7.40 (Normal) Range: 7.32-7.42 BLD GAS TYPE JUAN ANTONIO (Normal) 15-Ond-66035:32 Venous Blood Gas Comments: [facility] LaboratoryPoint of [address] [address] ISTAT 25 [...] 7.32-7.42 BLD GAS TYPE JUAN ANTONIO (Normal) 3-Tyc-256473:01 Basic Metabolic Profile (BMP) Comments: Order Date: 03/26/17Order Info: [id number] - *BMPComments: Reason:[facility] [address]sp[address] [place], [address] GAP 6 (Normal) Range: 5-15 CO2 27.0 [...] HOMEOSTASIS per A.D.A. criteria.; ADDENDA: another doc 1-Fyp-163547:01 CBC-Complete Blood Cnt No Diff Comments: Order Date: 03/26/17Order Info: [id number] - *CBC without DiffComments: Reason:[facility] [address]ws[address] [place], [place], [address] ; another doc MPV 12.4 fL (Abnormal) [...] 7.6 K/mm3 (Normal) Range: 4.4-11.0 :31 Iron (18799) Comments: PATIENT NOT FASTINGPERFORMED BY: [employer] Aooewa6649 [facility] [id number] Iron, Serum 70 ug/dL (Normal) Range: 27-139 :31 Ferritin (59068) Comments: PATIENT NOT FASTINGPERFORMED BY: [facility] Bgulqy1952 [facility] [id number] Ferritin, Serum 90 ng/mL (Normal) Range: 15-150 :31 Metabolic Panel, Comprehensive Comments: PATIENT NOT FASTINGPERFORMED BY: [employer] Fdioeq7954 [facility] [id number] (90152) ALT (SGPT) 16 [iU]/L (Normal) Range: 0-32 [...] Glucose, Serum 109 mg/dL (Abnormal) Range: 65-99 36-Ufb-95667:31 CBC WITH MANUAL DIFF (69309) Comments: PATIENT NOT FASTINGPERFORMED BY: [facility] Sigunc8016 [facility] [id number] Immature Grans (Abs) 0.0 {x10E3/uL} Range: 0.0-0.1 [...] sent toHeron Hobbs M.D..PATIENT NOT FASTINGPERFORMED BY: [facility]6370 [facility] [id number] 12:16 Range: 15-150 44-Jxe-444900:16 CBC, PLATELETS & AUT DIFF Comments: A courtesy copy of this report has been sent Robyn Hobbs M.D..PATIENT NOT FASTINGPERFORMED BY: [facility]6370 [facility] [id number] (57630) Immature Grans (Abs) 0.0 {x10E3/uL} (Normal) Range: [...] 3.77-5.28 WBC 9.1 {x10E3/uL} (Normal) Range: 3.4-10.8 41-Bfw-262790:16 IRON & TOTAL IRON BINDING Comments: A courtesy copy of this report has been sent toHeron Hobbs M.D..PATIENT NOT FASTINGPERFORMED BY: [facility] Lkbegu2545 [facility] [id number] CAPACITY (01984) Iron Saturation 10 % (Abnormal) Range: 15-55 Iron, Serum 40 ug/dL (Normal) Range: 27-139 UIBC 358 ug/dL (Normal) Range: 118-369 Iron Bind.Cap.(TIBC) 398 ug/dL (Normal) Range: 250-450 49-Bzp-603410:43 Culture, Urine Comments: [facility] [address] [place], [place], [address] CUUR See Note (Normal) Comments: Urine CultureORGANISM [...] $ <=20 S(NF) indicates non-formulary drug at [facility]. Approval by Infectious Disease Specialist required before non- formulary drugs may be ordered and/or dispensed. 6-Ymu-972901:00 Basic Metabolic Profile (BMP) Comments: [facility] Umocerluzi[address] [place], [place], [address] GAP 10 (Normal) Range: 5-15 CO2 23.0 [...] <126 mg/dLsuggests IMPAIRED HOMEOSTASIS per A.D.A. criteria. 4-Pjb-820397:00 CBC W/Diff, Automated Comments: [facility] [address]axnx[address] [place], [place], [address] ; ER Absolute Lymph 1.09 {X10_3/ul} (Normal) [...] 4.2-5.4 WBC 6.5 K/mm3 (Normal) Range: 4.4-11.0 6-Uoi-218273:00 Prothrombin Time w/INR Comments: [facility] [address] [place], [address] INR 1.2 (Normal) PROTIME 14.6 s (Normal) Range: 11.7-14.9 8-Wpk-946827:00 Microscopic Examination Comments: PATIENT WAS FASTINGPERFORMED BY: [facility] Phbqyi0538 Buster [facility] [id number] Bacteria Few (Normal) Mucus Threads Present (Normal) Epithelial Cells (non renal) 0-10 {/hpf} (Normal) Range: 0 - 10 RBC 0-2 {/hpf} (Normal) Range: 0 - 2 WBC 0-5 {/hpf} (Normal) Range: 0 - 5 84-Not-96169:40 Urinalysis, Complete Comments: Order Date: 12/09/16Order Date: 12/09/16How was Urine Obtained? CLEAN [facility] [address] [place], [address] MUCUS, URINE 0 SEEN {/hpf} (Normal) BACTERIA [...] (Normal) CLARITY Cloudy (Normal) COLOR Yellow (Normal) 23-Bnh-68611:00 Prothrombin Time w/INR Comments: REDRAW. PREVIOUS SPECIMEN REJECTED DUE TOQNS. 12/09/16 0547 Jessica Allen.REDRAW. PREVIOUS SPECIMEN REJECTED DUE TOQNS. 12/09/16 0547 Jessica Allen.[facility] Labor [address] [place], [address] INR 1.6 (Normal) PROTIME 18.1 s (Abnormal) Range: 11.7-14.9 03-Xyy-80116:10 Basic Metabolic Profile (BMP) Comments: 'TROP' Serial specimen #1, #2, #3, or #4: [address] [place] [address] [place], [address] GAP 11 (Normal) Range: 5-15 CO2 23.0 [...] A.D.A. criteria. :10 BNP,B-Type NATRIURETIC PEPTIDE Comments: [facility] Tcpeiwazsb8926 [facility]. [place], [place], [address] B-TYPE MARY JO PEP 243.7 pg/mL (Abnormal) Range: 0-100 :10 CBC W/Diff, Automated Comments: [facility] Evgpnwebvi6280 [facility]. [place], [place], [address] SMEAR COMMENT SCANNED (Normal) Comments: LYMPHOPENIA NOTED [...] 4.2-5.4 WBC 15.9 K/mm3 (Abnormal) Range: 4.4-11.0 83-Ldb-83403:10 Troponin-I Comments: 'TROP' Serial specimen #1, #2, #3, or #4: [facility] [address]uoouoq1455 [place], [address] TROPONIN-I 0.43 ng/mL (Abnormal) Comments: TROPONIN-I EXPECTED VALUES <0.05 NEGATIVE 0.06 - 0.59 AT RISK OF CA > OR = 0.60 SUGGEST CA 52-Gdt-09545:02 Lactic Acid Comments: [facility] Bxxylhdbmo0243 [place], [address] LACTIC ACID 2.2 mmol/L (Abnormal) Range: 0.4-2.0 71-Nrq-993380:45 Rapid Flu (49664 x 2) Comments: Negative Influenza A Ag neg a/b (Normal) 5-Avf-781445:00 MICROALBUMIN: CREATININE RATIO Comments: PATIENT WAS FASTINGPERFORMED BY: [facility]6370 [facility] [id number] (69514) AND (34246) Microalb/Creat Ratio 29.7 {mg/g_creat} (Normal) Range: 0.0-30.0 Microalbumin, Urine 15.2 ug/mL (Normal) Creatinine, Urine 51.2 mg/dL (Normal) :00 URINALYSIS (19254) Comments: PATIENT WAS FASTINGPERFORMED BY: [employer] Hhdodb6742 [facility] [id number] Microscopic Examination See below: (Normal) Comments: Microscopic was indicated and was performed. Nitrite, Urine Negative (Normal) Urobilinogen,Semi-Qn 0.2 mg/dL (Normal) Range: 0.2-1.0 Bilirubin Negative (Normal) Occult Blood Trace (Abnormal) Ketones Negative (Normal) Glucose Negative (Normal) Protein Negative (Normal) WBC Esterase 2+ (Abnormal) Appearance Clear (Normal) Urine-Color Yellow (Normal) pH 6.0 (Normal) Range: 5.0-7.5 Specific [place] 1.010 (Normal) Range: 1.005-1.030 :00 TSH (31371) Comments: PATIENT WAS FASTINGPERFORMED BY: [employer] Kxdapr7816 [facility] [id number] TSH 3.850 {uIU/mL} (Normal) Range: 0.450-4.500 :00 CBC, Platelets & Auto Diff Comments: PATIENT WAS FASTINGPERFORMED BY: [employer] 7write [facility] [id number] (44579) Immature Grans (Abs) 0.0 {x10E3/uL} (Normal) Range: [...] 3.77-5.28 WBC 8.8 {x10E3/uL} (Normal) Range: 3.4-10.8 5-Xxm-756833:00 Metabolic Panel, Comprehensive Comments: PATIENT WAS FASTINGPERFORMED BY: [facility]CoSaint [facility]abas Medical CenterKcphyw6752 [facility] [id number] (58735) ALT (SGPT) 24 [iU]/L (Normal) Range: 0-32 [...] Glucose, Serum 106 mg/dL (Abnormal) Range: 65-99 76-Tdd-38026:10 CBC W/Diff, Automated Comments: [facility] [address] [place], [place], [address] Absolute Lymph 1.29 {X10_3/ul} (Normal) Range: 0.83-4.51 [...] 4.2-5.4 WBC 8.0 K/mm3 (Normal) Range: 4.4-11.0 69-Aej-167150:08 HgA1C , Office (35799) HgA1C , Office 5.5 % (Normal) Range: 4.6 - 7.1 26-Fon-135341:08 Blood Glucose , Office (99437) Blood Glucose , Office 155 (Normal) 3-Hgl-169583:25 BNP,B-Type NATRIURETIC PEPTIDE Comments: [facility] [address]rotm[address] [place], [address] ; another doc B-TYPE MARY JO PEP 147.4 pg/mL (Abnormal) Range: 0-100 :18 HgA1C , Office (27082) HgA1C , Office 6.0 % (Normal) Range: 4.6 - 7.1 :18 Blood Glucose , Office (03877) Blood Glucose , Office 109 (Normal) :21 HgA1C , Office (60701) HgA1C , Office 6.1 % (Normal) Range: 4.6 - 7.1 :21 Blood Glucose , Office (41730) Blood Glucose , Office 117 (Normal) 5-Mdx-446546:21 METABOLIC PANEL, Comments: PATIENT NOT FASTINGPERFORMED BY: [facility] Vquzvx7384 [facility] [id number] Information: [id number] COMPREHENSIVE (82736) ALT (SGPT) 15 [iU]/L (Normal) Range: 0-32 [...] Glucose, Serum 92 mg/dL (Normal) Range: 65-99 :21 Vitamin D Hydroxy (34478) Comments: PATIENT NOT FASTINGPERFORMED BY: [facility]CoSaint Barnabas Medical CenterVllpmq9752 [facility] [id number] Vitamin D, 25-Hydroxy 59.7 ng/mL (Normal) Range: 30.0-100.0 Comments: Vitamin D deficiency has been defined by the [place] [employer] [employer] and an Endocrine Society practice guideline as alevel of serum 25-OH vitamin D less than 20 ng/mL (1,2).The Endocrine Society went on to further define vitamin Dinsufficiency as a level between 21 and 29 ng/mL (2).1. IOM ([place] [employer]). 2010. Dietary reference intakes for calcium and D. [place]: The National Academies Press.2. [place] MF, James MCGOWAN, Dolores MARTINEZ, et al. Evaluation, treatment, and prevention of vitamin D deficiency: an Endocrine Society clinical practice guideline. JCEM. 2010; 96(7):1911-30. :06 HgA1C , Office (22287) HgA1C , Office 6.0 % (Normal) Range: 4.6 - 7.1 :15 HgA1C , Office (97972) HgA1C , Office 6.4 % (Normal) Range: 4.6 - 7.1 :31 HgA1C , Office (46864) HgA1C , Office 6.0 % (Normal) Range: 4.6 - 7.1 :04 HgA1C , Office (04163) HgA1C , Office 6.0 % (Normal) Range: 4.6 - 7.1 75-Jib-448253:09 HgA1C , Office (51739) HgA1C , Office 6.0 % (Normal) Range: 4.6 - 7.1 38-Hhq-959220:32 HgA1C , Office (77061) HgA1C , Office 6.2 % (Normal) Range: 4.6 - 7.1 :24 HgA1C , Office (32005) HgA1C , Office 6.2 % (Normal) Range: 4.6 - 7.1 :59 PT (Prothrobim Time) Comments: PATIENT NOT FASTINGPERFORMED BY: [place] [address]6870 [facility] [id number] Information: [id number] (21430) Prothrombin Time 25.2 {sec} (Abnormal) Range: 9.1-12.0 INR 2.4 (Abnormal) Range: 0.8-1.2 Comments: Reference interval is for non-anticoagulated patients. . Suggested INR therapeutic range for Vitamin K anta gonist therapy: Standard Dose (moderate intensity therapeutic range): 2.0 - 3.0 Higher intensity therapeutic range 2.5 - 3.5 :22 PT (Prothrobim Time) Comments: PATIENT NOT FASTINGPERFORMED BY: [facility]6370 [facility] [id number] Information: [id number] (19077) Prothrombin Time 22.4 {sec} (Abnormal) Range: 9.1-12.0 INR 2.2 (Abnormal) Range: 0.8-1.2 Comments: Reference interval is for non-anticoagulated patients. . Suggested INR therapeutic range for Vitamin K anta gonist therapy: Standard Dose (moderate intensity therapeutic range): 2.0 - 3.0 Higher intensity therapeutic range 2.5 - 3.5 83-Spi-212451:39 HgA1C , Office (82297) HgA1C , Office 6.5 % (Normal) Range: 4.6 - 7.1 :37 PT (Prothrobim Time) Comments: PATIENT NOT FASTINGPERFORMED BY: [place] [address]6870 [facility] [id number] Information: [id number] (19147) Prothrombin Time 20.7 {sec} (Abnormal) Range: 9.1-12.0 INR 1.9 (Abnormal) Range: 0.8-1.2 Comments: Reference interval is for non-anticoagulated patients. . Suggested INR therapeutic range for Vitamin K anta gonist therapy: Standard Dose (moderate intensity therapeutic range): 2.0 - 3.0 Higher intensity therapeutic range 2.5 - 3.5 81-Cbq-882103:34 BNTP (34773) Comments: PATIENT NOT FASTINGPERFORMED BY: [facility] Zklldp2325 Goins [facility] [id number] B-Type Natriuretic Peptide 156.2 pg/mL (Abnormal) Range: 0.0-100.0 76-Gct-031430:34 PT (Prothrobim Time) (22425) Comments: PATIENT NOT FASTINGPERFORMED BY: [facility] Thuxeu8696 [facility] [place] [id number] Prothrombin Time 13.1 {sec} (Abnormal) Range: 9.1-12.0 INR 1.3 (Abnormal) Range: 0.8-1.2 Comments: Reference interval is for non-anticoagulated patients. . Suggested INR therapeutic range for Vitamin K anta gonist therapy: Standard Dose (moderate intensity therapeutic range): 2.0 - 3.0 Higher intensity therapeutic range 2.5 - 3.5 24-Fta-830045:34 CULTURE, SPUTUM (22946) Comments: PATIENT NOT FASTINGPERFORMED BY: [facility] Rhmcmd4664 [facility] [place] [id number] Lower Respiratory Culture Final report (Normal) Result 1 RRF (Normal) Comments: Routine respiratory anisa 26-Gkq-866154:20 PT (Prothrobim Time) Comments: PATIENT NOT FASTINGPERFORMED BY: [facility] Ehxmzm8673 [facility] [id number] Information: [id number] (52145) Prothrombin Time 21.0 {sec} (Abnormal) Range: 9.1-12.0 INR 2.0 (Abnormal) Range: 0.8-1.2 Comments: Reference interval is for non-anticoagulated patients. . Suggested INR therapeutic range for Vitamin K anta gonist therapy: Standard Dose (moderate intensity therapeutic range): 2.0 - 3.0 Higher intensity therapeutic range 2.5 - 3.5 66-Ewe-257829:11 PT (Prothrobim Time) Comments: PATIENT NOT FASTINGPERFORMED BY: [facility]6370 [facility] [id number] Information: [id number] (24972) Prothrombin Time 15.3 {sec} (Abnormal) Range: 9.1-12.0 INR 1.5 (Abnormal) Range: 0.8-1.2 Comments: Reference interval is for non-anticoagulated patients. . Suggested INR therapeutic range for Vitamin K anta gonist therapy: Standard Dose (moderate intensity therapeutic range): 2.0 - 3.0 Higher intensity therapeutic range 2.5 - 3.5 22-Rxa-078220:45 HgA1C , Office (92994) HgA1C , Office 6.5 % (Normal) Range: 4.6 - 7.1 :18 PT (Prothrobim Time) Comments: PATIENT NOT FASTINGPERFORMED BY: [place] 6[address]6870 [facility] [id number] Information: [id number] (81028) Prothrombin Time 20.0 {sec} (Abnormal) Range: 9.1-12.0 INR 1.9 (Abnormal) Range: 0.8-1.2 Comments: Reference interval is for non-anticoagulated patients. . Suggested INR therapeutic range for Vitamin K anta gonist therapy: Standard Dose (moderate intensity therapeutic range): 2.0 - 3.0 Higher intensity therapeutic range 2.5 - 3.5 :24 HgA1C , Office (68440) HgA1C , Office 6.1 % (Normal) Range: 4.6 - 7.1 :53 HgA1C , Office (18695) HgA1C , Office 6.2 % (Normal) Range: 4.6 - 7.1 :05 CBC WITH MANUAL DIFF Comments: today; PATIENT NOT FASTINGPERFORMED BY: [address] [id number] Information: [id number] (58164) Hematology Comments: Note: (Normal) Comments: Verified by [...] 3.77-5.28 WBC 9.2 {x10E3/uL} (Normal) Range: 4.0-10.5 :30 HgA1C , Office (84223) HgA1C , Office 6.1 % (Normal) Range: 4.6 - 7.1 :33 PT (Prothrobim Time) Comments: PATIENT NOT FASTINGPERFORMED BY: CB [facility] Qvkhkg8480 [facility] [id number] Information: [id number] (28133) Prothrombin Time 17.9 {sec} (Abnormal) Range: 9.1-12.0 INR 1.7 (Abnormal) Range: 0.8-1.2 Comments: Reference interval is for non-anticoagulated patients. . Suggested INR therapeutic range for Vitamin K anta gonist therapy: Standard Dose (moderate intensity therapeutic range): 2.0 - 3.0 Higher intensity therapeutic range 2.5 - 3.5 58-Lrg-583742:27 PT (Prothrobim Time) Comments: PATIENT NOT FASTINGPERFORMED BY: [facility]6370 [facility] [id number] Information: [id number] (00055) Prothrombin Time 26.3 {sec} (Abnormal) Range: 9.1-12.0 INR 2.6 (Abnormal) Range: 0.8-1.2 Comments: Reference interval is for non-anticoagulated patients. . Suggested INR therapeutic range for Vitamin K anta gonist therapy: Standard Dose (moderate intensity therapeutic range): 2.0 - 3.0 Higher intensity therapeutic range 2.5 - 3.5 7-Pwa-663585:01 BILAT SCRN DIGITAL & CAD Radiology Report [...] Cho M.D.July 25, 2012 at 11:23:11 AM [id number] Signed GP/GP If you are the referring physician and would like to consult with theradiologist who provided this interpretation, please contact Clinton Ignacio at [phone]. If this radiologist is unavailable, youwill be directed to another radiologist to assist. If you are a patient with a question regarding this report, pleasecontactyour referring physician directly. Professional Interpretation Provided By: [employer], Phone , These documents contain leg ally [...] keny documents. Dictated on 07/25/12 1001 by Michelle Cho MDranscribed on 07/25/12 1127 by ITS IMPORTSign by Irvin Cho MD on 07/25/12 1128 Sign by: Irvin Cho MD 91-Ruq-115287:44 HgA1C , Office (86295) HgA1C , Office 6.6 % (Normal) Range: 4.6 - 7.1 87-Yip-930475:44 Blood Glucose , Office (42738) Blood Glucose , Office 101 (Normal) 3-Tvp-898195:02 PT (Prothrobim Time) Comments: standing order; PATIENT NOT FASTINGPERFORMED BY: [facility] Deonyu2874 [facility] [id number] Information: [id number] (96270) Prothrombin Time 20.6 {sec} (Abnormal) Range: 9.1-12.0 INR 2.0 (Abnormal) Range: 0.8-1.2 Comments: Reference interval is for non-anticoagulated patients. . Suggested INR therapeutic range for Vitamin K anta gonist therapy: Standard Dose (moderate intensity therapeutic range): 2.0 - 3.0 Higher intensity therapeutic range 2.5 - 3.5 48-Jga-917912:09 HgA1C , Office (48272) HgA1C , Office 6.1 % (Normal) Range: 4.6 - 7.1 81-Upt-45905:00 Prothrombin Time (PT) Comments: PATIENT NOT FASTINGPERFORMED BY: [place] 6276870 [facility] [id number] Prothrombin Time 21.7 {sec} (Abnormal) Range: 9.1-12.0 INR 2.1 (Abnormal) Range: 0.8-1.2 Comments: Reference interval is for non-anticoagulated patients. . Suggested INR therapeutic range for Vitamin K anta gonist therapy: Standard Dose (moderate intensity therapeutic range): 2.0 - 3.0 Higher intensity therapeutic range 2.5 - 3.5 33-Pyw-528530:42 PT (PROTHROMBIN TIME) Comments: PATIENT NOT FASTINGPERFORMED BY: [place] 6276870 [facility] [id number] Information: [id number] (41245) Prothrombin Time 18.7 {sec} (Abnormal) Range: 9.1-12.0 INR 1.8 (Abnormal) Range: 0.8-1.2 Comments: Reference interval is for non-anticoagulated patients. . Suggested INR therapeutic range for Vitamin K anta gonist therapy: Standard Dose (moderate intensity therapeutic range): 2.0 - 3.0 Higher intensity therapeutic range 2.5 - 3.5 [id number] PT (PROTHROMBIN TIME) Comments: PATIENT NOT FASTINGPERFORMED BY: [place] [id number] [facility] [id number] Information: [id number] ([id number]) Prothrombin Time 21.7 {sec} (Abnormal) Range: 9.1-12.0 INR 2.0 (Abnormal) Range: 0.8-1.2 Comments: Reference interval is for non-anticoagulated patients. . Suggested INR therapeutic range for Vitamin K anta gonist therapy: Standard Dose (moderate intensity therapeutic range): 2.0 - 3.0 Higher intensity therapeutic range 2.5 - 3.5 :01 ERYTHROPOIETIN (80217) Comments: PATIENT NOT FASTINGPERFORMED BY: [facility] Asrmxs16[address] RoadDublin [place] [id number] Erythropoietin 38.7 m[iU]/mL (Abnormal) Range: 4.2-27.8 :01 Vitamin D Hydroxy (66583) Comments: PATIENT NOT FASTINGPERFORMED BY: [facility] Lgptps0507 [address] RoadDublin [place] [id number] Vitamin D, 25-Hydroxy 52.5 ng/mL (Normal) Range: 30.0-100.0 Comments: Vitamin D deficiency has been defined by the [place] [employer] and an Endocrine Society practice guideline as alevel of serum 25-OH vitamin D less than 20 ng/mL (1,2).The Endocrine Society went on to further define vitamin Dinsufficiency as a level between 21 and 29 ng/mL (2).1. IOM ([place] [employer]). 2010. Dietary reference intakes for calcium and D. [place]: The National Academies Press.2. [place] MF, James [place], Dolores MARTINEZ, et al. Evaluation, treatment, and prevention of vitamin D deficiency: an Endocrine Society clinical practice guideline. JCEM. 2010; 96(7):1911-30. :01 VITAMIN B-12 (CYANOCOBALAMIN) Comments: PATIENT NOT FASTINGPERFORMED BY: [facility] Oqrndv6970 [address] RoadDublin [place] [id number] (70810) Vitamin B12 779 pg/mL (Normal) Range: 211-946 :01 RETICULOCYTE COUNT MANUL Comments: PATIENT NOT FASTINGPERFORMED BY: [facility] Xydlib0225 [address]Dublin [place] [id number] (79453) Reticulocyte Count 1.9 % (Normal) Range: 0.5-3.0 08-Ijg-756685:01 LDH (LD) (LACTATE DEHYDROGENASE) Comments: PATIENT NOT FASTINGPERFORMED BY: [facility] [id number] (60400) LDH 174 [iU]/L (Normal) Range: 0-214 45-Mdw-118143:01 IRON BINDING CAPACITY Comments: PATIENT NOT FASTINGPERFORMED BY: [place] [address]276870 [facility] [id number] Information: [id number] (TIBC) (23024) Iron Saturation 9 % (Abnormal) Range: 15-55 Iron, Serum 35 ug/dL (Normal) Range: 35-155 UIBC 355 ug/dL (Normal) Range: 150-375 Iron Bind.Cap.(TIBC) 390 ug/dL (Normal) Range: 250-450 :01 FERRITIN (39455) Comments: PATIENT NOT FASTINGPERFORMED BY: [place] 6276870 [facility] [id number] Ferritin, Serum 59 ng/mL (Normal) Range: 13-150 :47 HgA1C , Office (60107) HgA1C , Office 6.2 % (Normal) Range: 4.6 - 7.1 :48 Prothrombin Time (PT) Comments: PERFORMED BY: [facility] [id number] Prothrombin Time 20.1 {sec} (Abnormal) Range: 9.1-12.0 Comments: Please note reference interval change INR 1.9 (Abnormal) Range: 0.8-1.2 Comments: Reference interval is for non-anticoagulated patients. . Suggested INR therapeutic range for Vitamin K anta gonist therapy: Standard Dose (moderate intensity therapeutic range): 2.0 - 3.0 Higher intensity therapeutic range 2.5 - 3.5 :56 HgA1C , Office (76982) HgA1C , Office 6.4 % (Normal) Range: 4.6 - 7.1 :56 Blood Glucose , Office (82468) Blood Glucose , Office 111 (Normal) 75-Ahj-657159:48 PT (PROTHROMBIN TIME) Comments: PATIENT NOT FASTINGPERFORMED BY: [facility] [place] [id number] Information: [id number] (63763) Prothrombin Time 28.0 {sec} (Abnormal) Range: 9.1-12.0 Comments: Please note reference interval change INR 2.6 (Abnormal) Range: 0.8-1.2 Comments: Reference interval is for non-anticoagulated patients. . Suggested INR therapeutic range for Vitamin K anta gonist therapy: Standard Dose (moderate intensity therapeutic range): 2.0 - 3.0 Higher intensity therapeutic range 2.5 - 3.5 1-Obu-609717:42 BILAT SCRN DIGITAL & CAD Radiology Report [...] Dictated on 07/20/11 1222 by Rere Cho MDcribed on 07/20/11 1304 by ITS IMPORTSign by Irvin Cho MD on 07/20/11 1305 Sign by: Irvin Cho MD 0-Hax-332539:14 PT (PROTHROMBIN TIME) Comments: PATIENT NOT FASTINGPERFORMED BY: [place] 6276870 [facility] [id number] Information: [id number] (60269) Prothrombin Time 37.0 {sec} (Abnormal) Range: 9.1-12.0 Comments: Please note reference interval change INR 3.5 (Abnormal) Range: 0.8-1.2 Comments: Reference interval is for non-anticoagulated patients. . Suggested INR therapeutic range for Vitamin K anta gonist therapy: Standard Dose (moderate intensity therapeutic range): 2.0 - 3.0 Higher intensity therapeutic range 2.5 - 3.5 4-Ttz-681130:15 URIC ACID BLOOD (65609) Comments: PATIENT NOT FASTINGPERFORMED BY: [place] 6276870 [facility] [id number] Information: [id number],2ND ORDER Uric Acid, Serum 5.3 mg/dL (Normal) Range: 2.5-7.1 Comments: Therapeutic target for gout patients: <6.0 34-Axf-674853:26 FECAL OCCULT- Tubes sent home (72042) FECAL OCCULT HGB ASSAY, QUAL, 1-3 SIMULTANEOU negative (Normal) 18-Xkr-249719:37 FERRITIN (03503) Comments: PATIENT NOT FASTINGPERFORMED BY: [facility]6[address] [facility] [id number] Ferritin, Serum 109 ng/mL (Normal) Range: 13-150 59-Otw-773023:37 IRON (80212) Comments: PATIENT NOT FASTINGPERFORMED BY: [facility]6[address] [facility] [id number] Iron, Serum 46 ug/dL (Normal) Range: 35-155 36-Tkv-077430:37 FOLIC ACID SERUM (97102) Comments: PATIENT NOT FASTINGPERFORMED BY: [place] 6276870 [facility] [id number] Folate (Folic Acid), Serum >19.9 ng/mL (Normal) Comments: Indeterminate: 2.2 - 3.0 Deficient: <2.2 80-Jiq-893295:37 RETICULOCYTE COUNT MANUL Comments: PATIENT NOT FASTINGPERFORMED BY: [facility] Xjbghg7687 [address] RoadDublin [place] [id number] (54588) Reticulocyte Count 1.6 % (Normal) Range: 0.5-3.0 99-Srh-375325:37 LDH (LD) (LACTATE DEHYDROGENASE) Comments: PATIENT NOT FASTINGPERFORMED BY: [facility] Kkgdjy4862 [address] RoadDublin [place] [id number] (36646) LDH 179 [iU]/L (Normal) Range: 0-214 81-Klo-729625:37 VITAMIN B-12 (CYANOCOBALAMIN) Comments: PATIENT NOT FASTINGPERFORMED BY: [facility] Jaubeo2389 [address] RoadDublin [place] [id number] (96622) Vitamin B12 668 pg/mL (Normal) Range: 211-946 16-Tcu-850962:37 TSH (24018) Comments: PATIENT NOT FASTINGPERFORMED BY: [facility] Dinetq9869 [address] RoadDublin [place] [id number] TSH 2.500 {uIU/mL} (Normal) Range: 0.450-4.500 41-Msz-865861:37 CBC WITH MANUAL DIFF Comments: PATIENT NOT FASTINGPERFORMED BY: [facility] Ehkdpr[address] [facility]in [place] [id number] Information: [id number] (48756) Immature Grans (Abs) 0.0 {x10E3/uL} (Normal) Range: [...] (Normal) Range: 4.0-10.5 :37 Uric Acid Blood (94514) Comments: PATIENT NOT FASTINGPERFORMED BY: [facility]CoSaint [facility]abas Medical CenterDsusrs8816 [facility] [id number] Uric Acid, Serum 10.0 mg/dL (Abnormal) Range: 2.5-7.1 Comments: Therapeutic target for gout patients: <6.0 :45 Blood Glucose , Office (55777) Blood Glucose , Office 101 (Normal) :45 HgA1C , Office (68634) HgA1C , Office 6.3 % (Normal) Range: 4.6 - 7.1 :25 PT (Prothrobim Time) Comments: Protime/INR Standing Order; PATIENT NOT FASTINGPERFORMED BY: [facility] [id number] Information: [id number] (39222) Prothrombin Time 28.9 {sec} (Abnormal) Range: 8.7-11.5 INR 2.7 (Abnormal) Range: 0.8-1.2 Comments: Reference interval is for non-anticoagulated patients. . Suggested INR therapeutic range for Vitamin K anta gonist therapy: Standard Dose (moderate intensity therapeutic range): 2.0 - 3.0 Higher intensity therapeutic range 2.5 - 3.5 :28 PT (PROTHROMBIN TIME) Comments: PATIENT NOT FASTINGPERFORMED BY: [place] 6276870 [facility] [id number] Information: [id number] (86892) Prothrombin Time 24.6 {sec} (Abnormal) Range: 8.7-11.5 INR 2.3 (Abnormal) Range: 0.8-1.2 Comments: Reference interval is for non-anticoagulated patients. . Suggested INR therapeutic range for Vitamin K anta gonist therapy: Standard Dose (moderate intensity therapeutic range): 2.0 - 3.0 Higher intensity therapeutic range 2.5 - 3.5 : Potassium, Serum 5.2 mmol/L (Normal) Comments: PERFORMED BY: [place] 6276870 [facility] [id number] Range: 3.5-5.2 :42 Prothrombin Time (PT) Comments: PERFORMED BY: [address] [id number] Prothrombin Time 12.8 {sec} (Abnormal) Range: 8.7-11.5 INR 1.2 (Normal) Range: 0.8-1.2 Comments: Reference interval is for non-anticoagulated patients. . Suggested INR therapeutic range for Vitamin K anta gonist therapy: Standard Dose (moderate intensity therapeutic range): 2.0 - 3.0 Higher intensity therapeutic range 2.5 - 3.5 49-Vjc-057753:08 Prothrombin Time (PT) Comments: PERFORMED BY: [facility]6370 [facility] [id number] Prothrombin Time 19.2 {sec} (Abnormal) Range: 8.7-11.5 INR 1.8 (Abnormal) Range: 0.8-1.2 Comments: Reference interval is for non-anticoagulated patients. . Suggested INR therapeutic range for Vitamin K anta gonist therapy: Standard Dose (moderate intensity therapeutic range): 2.0 - 3.0 Higher intensity therapeutic range 2.5 - 3.5 :19 Vitamin D Hydroxy (59498) Comments: PATIENT WAS FASTINGPERFORMED BY: [facility] Lwloku3627 [address] [place] [id number] Vitamin D, 25-Hydroxy 43.1 ng/mL (Normal) Range: 32.0-100.0 Comments: Effective July 09, 2011 Vitamin D, 25-Hydroxy reference intervals will be changing to 30-100. .Recent studies consider the lower li osbaldo of 32.0 ng/mL to be athreshold for optimal health.Ye JARVIS. J Nutr. 2004;135(2):317-22. :19 MICROALBUMIN: CREATININE RATIO Comments: PATIENT WAS FASTINGPERFORMED BY: [facility]6370 [facility] [id number] (04481) AND (13809) Microalb/Creat Ratio 24.6 {mg/g_creat} (Normal) Range: 0.0-30.0 Creatinine, Urine 23.6 mg/dL (Normal) Range: 15.0-278.0 Microalbumin, Urine 5.8 ug/mL (Normal) Range: 0.0-17.0 :19 LIPID PANEL (68870) Comments: PATIENT WAS FASTINGPERFORMED BY: [facility]6370 [facility] [id number] LDL/HDL Ratio 1.5 {ratio_units} (Normal) Range: 0.0-3.2 [...] MANUAL DIFF Comments: PATIENT WAS FASTINGPERFORMED BY: [employer] Jkwjee4799 [facility] [id number] Information: [id number] (40044) Immature Grans (Abs) 0.0 {x10E3/uL} (Normal) Range: [...] 3.80-5.10 WBC 8.2 {x10E3/uL} (Normal) Range: 4.0-10.5 70-Tpt-36825:19 METABOLIC PANEL, COMPREHENSIVE Comments: PATIENT WAS FASTINGPERFORMED BY: [facility] Bjybrl7848 [facility] [id number]; appt 06/05/11 (50418) ALT (SGPT) 16 [iU]/L (Normal) Range: 0-40 [...] Range: 65-99 :59 Blood Glucose , Office (24321) Blood Glucose , Office 129 (Normal) 60-Eih-359229:04 Prothrombin Time (PT) Comments: PERFORMED BY: [facility]6370 [facility] [id number] Prothrombin Time 25.1 {sec} (Abnormal) Range: 8.7-11.5 INR 2.4 (Abnormal) Range: 0.8-1.2 Comments: Reference interval is for non-anticoagulated patients. . Suggested INR therapeutic range for Vitamin K anta gonist therapy: Standard Dose (moderate intensity therapeutic range): 2.0 - 3.0 Higher intensity therapeutic range 2.5 - 3.5 :34 PT (PROTHROMBIN TIME) Comments: PATIENT NOT FASTINGPERFORMED BY: [facility] CenterCoSaint Barnabas Medical CenterDrrnvh0375 [facility] [id number] Information: [id number],NO DRAW FEE 2ND ORD ER (19673) Prothrombin Time 30.5 {sec} (Abnormal) Range: 8.7-11.5 INR 2.9 (Abnormal) Range: 0.8-1.2 Comments: Reference interval is for non-anticoagulated patients. . Suggested INR therapeutic range for Vitamin K anta gonist therapy: Standard Dose (moderate intensity therapeutic range): 2.0 - 3.0 Higher intensity therapeutic range 2.5 - 3.5 :38 Vitamin D Hydroxy (73372) Comments: today and 3 mos; PATIENT NOT FASTINGPERFORMED BY: [facility]6370 [facility] [id number] Information: [id number] Vitamin D, 25-Hydroxy 56.7 ng/mL (Normal) Range: 32.0-100.0 Comments: Recent studies consider the lower limit of 32.0 ng/mL to be athreshold for optimal health.Ye JARVIS. J Nutr. 2004;135(2):317-22. 26-Uog-800766:00 MICROALBUMIN: CREATININE Comments: PATIENT NOT FASTINGPERFORMED BY: [facility]6370 [facility] [id number] Information: [id number] RATIO (48109) AND (26754) Microalb/Creat Ratio 10.0 {mg/g_creat} (Normal) Range: 0.0-30.0 Microalbumin, Urine 4.3 ug/mL (Normal) Range: 0.0-17.0 Creatinine, Urine 43.2 mg/dL (Normal) Range: 15.0-278.0 :32 Blood Glucose , Office (46043) Blood Glucose , Office 137 (Normal) :32 HgA1C , Office (44987) HgA1C , Office 6.1 % (Normal) Range: 4.6 - 7.1 39-Vky-097266:38 Prothrombin Time (PT) Comments: PERFORMED BY: [facility] Emgjgl7540 [facility] [id number] Prothrombin Time 26.7 {sec} (Abnormal) Range: 8.7-11.5 INR 2.5 (Abnormal) Range: 0.8-1.2 Comments: Reference interval is for non-anticoagulated patients. . Suggested INR therapeutic range for Vitamin K anta gonist therapy: Standard Dose (moderate intensity therapeutic range): 2.0 - 3.0 Higher intensity therapeutic range 2.5 - 3.5 4-Tgi-796813:21 HgA1C , Office (57119) HgA1C , Office 6.0 % (Normal) Range: 4.6 - 7.1 2-Wwn-994715:21 Blood Glucose , Office (79048) Blood Glucose , Office 118 (Normal) 18-Qin-77492:10 DEXA BONE DENSITY STUDY (HP) Radiology Report See Note (Normal) Comments: CLINICAL:This is a 65-year-old female patient for post menopausal screening. EXAMINATION:DUAL ENERGY X-RAY ABSORPTIOMETRY / DEXA. TECHNIQUE:Bone Density Measurements (BMD) of lumbar spine and bilateral hips wereobtained using a [employer] scanner.. COMPARISON:None. FINDINGS: Lumbar Spine (L1-L4): g/cm2 [...] 07/18/10828 by Michelle Choranscribed on 07/18/10828 by INTERFACEMARSHALLSONSign by Tyler Cho on 07/19/10725 Sign by: Irvin Cho 77-Bok-38967:00 BILAT SCRN DIGITAL & CAD Radiology Report [...] Dictated on 09/17/09847 by ELAINE NIEVESTranscribed on 07/18/10847 by INTERFACE,MCKESSONSign by ELAINE NIEVES on 07/19/101051 Sign by: ELAINE NIEVES :59 Prothrombin Time (PT) Comments: PERFORMED BY: [facility] [id number] Prothrombin Time 30.2 {sec} (Abnormal) Range: 8.7-11.5 INR 2.8 (Abnormal) Range: 0.8-1.2 Comments: Reference interval is for non-anticoagulated patients. . Suggested INR therapeutic range for Vitamin K anta gonist therapy: Standard Dose (moderate intensity therapeutic range): 2.0 - 3.0 Higher intensity therapeutic range 2.5 - 3.5 :36 PT (Prothrobim Time) Comments: standing order; PATIENT NOT FASTINGPERFORMED BY: [place] 6276870 [facility] [id number] Information: [id number] (04810) Prothrombin Time 17.5 {sec} (Abnormal) Range: 8.7-11.5 INR 1.6 (Abnormal) Range: 0.8-1.2 Comments: Reference interval is for non-anticoagulated patients. . Suggested INR therapeutic range for Vitamin K anta gonist therapy: Standard Dose (moderate intensity therapeutic range): 2.0 - 3.0 Higher intensity therapeutic range 2.5 - 3.5 :22 Prothrombin Time (PT) Comments: PERFORMED BY: [facility]6370 [facility] [id number] Prothrombin Time 19.0 {sec} (Abnormal) Range: 8.7-11.5 INR 1.8 (Abnormal) Range: 0.8-1.2 Comments: Reference interval is for non-anticoagulated patients..Suggested INR therapeutic range for Vitamin Kantagonist therapy:Standard Dose (moderate intensitytherapeutic range): 2.0 - 3.0Higher intensity therapeutic range 2.5 - 3.5 :24 HgA1C , Office (27743) HgA1C , Office 6.6 % (Normal) Range: 4.6 - 7.1 :24 Blood Glucose , Office (54391) Blood Glucose , Office 128 (Normal) :25 CBC With Differential/Platelet Comments: PATIENT WAS FASTINGPERFORMED BY: [facility]CoSaint Barnabas Medical CenterOxdojz7606 [facility] [id number] Immature Grans (Abs) 0.0 {x10E3/uL} (Normal) Range: [...] 3.80-5.10 WBC 7.0 {x10E3/uL} (Normal) Range: 4.0-10.5 42-Tlt-25989:25 Comp. Metabolic Panel (14) Comments: PATIENT WAS FASTINGPERFORMED BY: [facility]CoSaint Barnabas Medical CenterEaykun9928 [facility] [id number] ALT (SGPT) 18 [iU]/L (Normal) Range: 0-40 [...] Glucose, Serum 105 mg/dL (Abnormal) Range: 65-99 33-Mde-15564:25 Lipid Panel With LDL/HDL Comments: PATIENT WAS FASTINGPERFORMED BY: [facility]CoSaint Barnabas Medical CenterYvvpdk2032 [facility] [id number] Ratio LDL Cholesterol Calc 67 mg/dL (Normal) Range: 0-99 LDL/HDL Ratio 2.0 {ratio_units} (Normal) Range: 0.0-3.2 HDL Cholesterol 33 mg/dL (Abnormal) Comments: According to ATP-III Guidelines, HDL-C >59 mg/dL is considered anegative risk factor for CHD. Triglycerides 153 mg/dL (Abnormal) Range: 0-149 VLDL Cholesterol Maricruz 31 mg/dL (Normal) Range: 5-40 Cholesterol, Total 131 mg/dL (Normal) Range: 100-199 53-Syj-67549:25 Prothrombin Time (PT) Comments: PATIENT WAS FASTINGPERFORMED BY: [facility] Yyndax6280 [facility] [id number] INR 1.7 (Abnormal) Range: 0.8-1.2 Comments: Reference interval is for non-anticoagulated patients..Suggested INR therapeutic range for Vitamin Kantagonist therapy:Standard Dose (moderate intensitytherapeutic range): 2.0 - 3.0Higher intensity therapeutic range 2.5 - 3.5 Prothrombin Time 18.0 {sec} Range: 8.7-11.5 (Abnormal) 02-May-2010 Vitamin D, 25-Hydroxy 44.2 ng/mL (Normal) Comments: PATIENT WAS FASTINGPERFORMED BY: [facility] Pfdecj7456 [facility] [id number] 9:25 Range: 32.0-100.0 Comments: Recent studies consider the lower limit of 32.0 ng/mL to be athreshold for optimal health.Ye JARVIS. J Nutr. 2004;135(2):317-22. 53-Cwl-476006:08 Uric Acid, 24 hr Urine Comments: PERFORMED BY: [facility] Bznhjv7459 [facility] [id number] Information: 02/13@6AM 02/14@545AM Uric Acid, Urine 24hr 502.4 {mg/24_hr} (Normal) Range: 250.0-750.0 Uric Acid, Urine 15.7 mg/dL (Normal) 48-Yxv-881737:21 Prothrombin Time (PT) Comments: PERFORMED BY: KaizenaSaint Barnabas Medical CenterEfygpc4209 [facility] [id number] Prothrombin Time 24.1 {sec} (Abnormal) Range: 8.7-11.5 INR 2.4 (Abnormal) Range: 0.8-1.2 Comments: Reference interval is for non-anticoagulated patients..Suggested INR therapeutic range for Vitamin Kantagonist therapy:Standard Dose (moderate intensitytherapeutic range): 2.0 - 3.0Higher intensity therapeutic range 2.5 - 3.5 Uric Acid, Serum 10.8 mg/dL (Abnormal) Comments: PERFORMED BY: [facility]6370 [facility] [id number] :21 Range: 2.4-8.2 :22 HgA1C , Office (19334) HgA1C , Office 6.4 % (Normal) Range: 4.6 - 7.1 69-Chf-698795:22 Blood Glucose , Office (59846) Blood Glucose , Office 137 (Normal) 82-Xlu-259306:38 URIC ACID BLOOD (12131) Comments: PATIENT NOT FASTINGPERFORMED BY: [facility]6370 [facility] [id number] Information: [id number] Uric Acid, Serum 9.0 mg/dL (Abnormal) Range: 2.4-8.2 76-Ssz-140587:16 FOOT,MIN 3 VIEWS (MT) Radiology Report See Note (Normal) Comments: Exam Number: [id number] LEFT FOOT Three views of the left [...] seen. IMPRESSIONPlantar spur. Reported By: IRVIN CHO 21-Wwe-475014:56 PTT (Activated Partial Comments: PATIENT NOT FASTINGPERFORMED BY: [facility]6370 [facility] [id number] Thromboplastin Time) (57248) aPTT 56 {sec} (Abnormal) Range: 24-33 Comments: This test has not been validated for monitoring unfractionated heparintherapy. aPTT-based therapeutic ranges for unfractionated heparintherapy have not been established. For general guidelines onHeparin monitoring, refer to the [facility] Directory of Services. 81-Col-411504:56 PT (Prothrobim Time) Comments: PATIENT NOT FASTINGPERFORMED BY: [place] 6276870 [facility] [id number] Information: [id number] (42171) Prothrombin Time 24.2 {sec} (Abnormal) Range: 8.7-11.5 INR 2.5 (Abnormal) Range: 0.8-1.2 Comments: Reference interval is for non-anticoagulated patients..Suggested INR therapeutic range for Vitamin Kantagonist therapy:Standard Dose (moderate intensitytherapeutic range): 2.0 - 3.0Higher intensity therapeutic range 2.5 - 3.5 :49 Prothrombin Time (PT) Comments: PERFORMED BY: [place] 6276870 [facility] [id number] Prothrombin Time 26.2 {sec} (Abnormal) Range: 8.7-11.5 INR 2.7 (Abnormal) Range: 0.8-1.2 Comments: Reference interval is for non-anticoagulated patients..Suggested INR therapeutic range for Vitamin Kantagonist therapy:Standard Dose (moderate intensitytherapeutic range): 2.0 - 3.0Higher intensity therapeutic range 2.5 - 3.5 Hemoglobin A1c 6.1 % (Abnormal) Comments: PERFORMED BY: [facility]6370 [facility] [id number] :56 Range: 4.8-5.6 Comments: Increased risk for diabetes: 5.7 - 6.4Diabetes: >6.4Glycemic control for adults with diabetes: <7.0.Please note reference interval change :21 HgA1C , Office (27816) HgA1C , Office 6.1 % (Normal) Range: 4.6 - 7.1 :21 Blood Glucose , Office (91042) Blood Glucose , Office 98 (Normal) :46 CBC With Differential/Platelet Comments: A courtesy copy of this report has been sent [phone].PATIENT WAS FASTINGPERFORMED BY: [address] [id number] Information: [id number] Baso (Absolute) 0.0 {x10E3/uL} (Normal) Range: 0.0-0.2 [...] 3.80-5.10 WBC 7.1 {x10E3/uL} (Normal) Range: 4.0-10.5 25-Oct-20099:46 Comp. Metabolic Panel (14) Comments: A courtesy copy of this report has been sent [phone].PATIENT WAS FASTINGPERFORMED BY: LabCoSaint Barnabas Medical CenterJffbew2433 [address] [facility] [id number] Alkaline Phosphatase, S 85 [iU]/L (Normal) Range: [...] Glucose, Serum 105 mg/dL (Abnormal) Range: 65-99 25-Oct-20099:46 Lipid Panel With LDL/HDL Comments: A courtesy copy of this report has been sent [phone].PATIENT WAS FASTINGPERFORMED BY: LabCoSaint Barnabas Medical CenterMaytcq9955 [facility] [id number] Ratio HDL Cholesterol 37 mg/dL (Abnormal) Comments: According to ATP-III Guidelines, HDL-C >59 mg/dL is considered anegative risk factor for CHD. LDL Cholesterol Calc 57 mg/dL (Normal) Range: 0-99 LDL/HDL Ratio 1.5 {ratio_units} (Normal) Range: 0.0-3.2 Triglycerides 128 mg/dL (Normal) Range: 0-149 VLDL Cholesterol Maricruz 26 mg/dL (Normal) Range: 5-40 Cholesterol, Total 120 mg/dL (Normal) Range: 100-199 :46 Microalb/Creat Ratio, Hermes Toth Comments: A courtesy copy of this report has been sent [phone].PATIENT WAS FASTINGPERFORMED BY: [employer]70 [facility] [id number] Microalb/Creat Ratio 7.2 {mg/g_creat} (Normal) Range: 0.0-30.0 Creatinine, Urine 16.6 mg/dL (Normal) Range: 15.0-278.0 Microalbumin, Urine 1.2 ug/mL (Normal) Range: 0.0-17.0 :46 Prothrombin Time (PT) Comments: A courtesy copy of this report has been sent [phone].PATIENT WAS FASTINGPERFORMED BY: [employer]70 [address] [facility]DYad[facility] [id number] Prothrombin Time 28.1 {sec} Range: 8.7-11.5 (Abnormal) INR 2.9 (Abnormal) Range: 0.8-1.2 Comments: Reference interval is for non-anticoagulated patients..Suggested INR therapeutic range for Vitamin Kantagonist therapy:Standard Dose (moderate intensitytherapeutic range): 2.0 - 3.0Higher intensity therapeutic range 2.5 - 3.5 Vitamin D, 25-Hydroxy 27.8 ng/mL Comments: A courtesy copy of this report has been sent [phone].PATIENT WAS FASTINGPERFORMED BY: [employer]6370 [facility] [id number] :46 (Abnormal) Range: 32.0-100.0 Comments: Recent studies consider the lower limit of 32.0 ng/mL to be athreshold for optimal health.Ye JARVIS. J Nutr. 2004;135(2):317-22. 56-Wcx-903053:51 Comp. Metabolic Panel (14) Comments: PERFORMED BY: [employer] [id number] A/G Ratio 1.3 (Normal) Range: 1.1-2.5 Albumin, [...] Sodium, Serum 139 mmol/L (Normal) Range: 135-145 38-Woe-021860:51 Prothrombin Time (PT) Comments: PERFORMED BY: LabCoSaint Barnabas Medical CenterLclwku4393 [facility] [id number] INR 2.3 (Abnormal) Range: 0.8-1.2 Comments: Reference interval is for non-anticoagulated patients. . Suggested INR therapeutic range for Vitamin K anta gonist therapy: Standard Dose (moderate intensity therapeutic range): 2.0 - 3.0 Higher intensity therapeutic range 2.5 - 3.5 Prothrombin Time 22.7 {sec} (Abnormal) Range: 8.7-11.5 :47 PT (Prothrobim Time) (74674) Comments: PATIENT NOT FASTINGClinical Information: [id number] PERFORMED BY: LabCoSaint Barnabas Medical CenterSzktmc2834 [facility] [id number] INR 2.0 (Abnormal) Range: 0.8-1.2 Comments: Reference interval is for non-anticoagulated patients. . Suggested INR therapeutic range for Vitamin K anta gonist therapy: Standard Dose (moderate intensity therapeutic range): 2.0 - 3.0 Higher intensity therapeutic range 2.5 - 3.5 Prothrombin Time 19.7 {sec} (Abnormal) Range: 8.7-11.5 91-Gri-372327:10 HgA1C , Office (42637) HgA1C , Office 6.3 % (Normal) Range: 4.6 - 7.1 49-Nqz-465344:10 Blood Glucose , Office (74055) Blood Glucose , Office 109 (Normal) 82-Zhh-746979:58 BILAT SCRN DIGITAL & CAD Radiology Report See Note (Normal) Comments: Exam Number: [id number] MAMMOGRAM, BILATERAL SCREENING DIGITAL AND CAD HISTORYRoutine [...] mammograms werealso examined with computer-aided detection software (ImageRegister My Info, [employer] Reported By: ELAINE NIEVES M.D. :22 PRO TIME INR 2.3 (Normal) PROTIME 26.1 s (Abnormal) Range: 9.1-11.7 :19 CHEST, PA AND LATERAL (MT) Radiology Report See Note (Normal) Comments: Exam Number: [id number] PA AND LATERAL CHEST Mild cardiomegaly appears [...] (Abnormal) Range: 9.1-11.7 :58 HgA1C , Office (04600) HgA1C , Office 5.7 % (Normal) Range: 4.6 - 7.1 :58 Blood Glucose , Office (39567) Blood Glucose , Office 119 (Normal) :39 PT/INR, Office (20757) INR 2.6 (Normal) :55 PT/INR, Office (89589) INR 2.5 (Normal) Comments: aw :01 HgA1C , Office (65193) HgA1C , Office 5.8 % (Normal) Range: 4.6 - 7.1 :01 Blood Glucose , Office (80873) Blood Glucose , Office 111 (Normal) :27 PT/INR, Office (89469) INR 2.2 (Normal) :09 PT/INR, Office (26757) INR 1.8 (Normal) :55 PT/INR, Office (84391) INR 3.3 (Normal) :51 PT/INR, Office (92352) INR 3.2 (Normal) Comments: aw :00 PT/INR, Office (03872) INR 2.9 (Normal) :14 PT/INR, Office (63487) INR 3.7 (Normal) :50 HgA1C , Office (44257) HgA1C , Office 5.8 % (Normal) Range: 4.6 - 7.1 :50 Blood Glucose , Office (26512) Blood Glucose , Office 119 (Normal) :03 CBC With Differential/Platelet Comments: PATIENT WAS FASTINGPERFORMED BY: LabCoSaint Barnabas Medical CenterNkgsxa7917 [facility] [id number] Baso (Absolute) 0.0 {x10E3/uL} (Normal) Range: 0.0-0.2 [...] 11.7-15.0 WBC 7.4 {x10E3/uL} (Normal) Range: 4.0-10.5 86-Adg-772903:03 Comp. Metabolic Panel (14) Comments: PATIENT WAS FASTINGPERFORMED BY: LabCoSaint Barnabas Medical CenterRuekcd8614 [facility] [id number] A/G Ratio 1.1 (Normal) Range: 1.1-2.5 Albumin, [...] Serum 106 mg/dL (Abnormal) Range: 65-99 If -Gambian 46 mL/min/1.73 Comments: Note: Persistent reduction for [...] Sodium, Serum 137 mmol/L (Normal) Range: 135-145 63-Chl-590086:03 Lipid Panel With LDL/HDL Comments: PATIENT WAS FASTINGPERFORMED BY: [facility]DrivenY[facility] [id number] Ratio Cholesterol, Total 129 mg/dL (Normal) Range: 100-199 HDL Cholesterol 34 mg/dL (Abnormal) Comments: According to ATP-III Guidelines, HDL-C >59 mg/dL is considered anegative risk factor for CHD. LDL Cholesterol Calc 66 mg/dL (Normal) Range: 0-99 LDL/HDL Ratio 1.9 {ratio_units} (Normal) Range: 0.0-3.2 Triglycerides 144 mg/dL (Normal) Range: 0-149 VLDL Cholesterol Maricruz 29 mg/dL (Normal) Range: 5-40 82-Nml-026816:03 Microscopic Examination Comments: PATIENT WAS FASTINGPERFORMED BY: [facility] [id number] Bacteria Few (Normal) Cast Type Hyaline casts (Normal) Casts Present {/lpf} (Abnormal) Crystal Type Amorphous Sediment (Normal) Crystals Present (Abnormal) Epithelial Cells (non 0-10 {/hpf} (Normal) Range: 0 - 10 renal) Mucus Threads Present (Normal) RBC 0-3 {/hpf} (Normal) Range: 0 - 3 WBC 0-5 {/hpf} (Normal) Range: 0 - 5 NTI Urine Tube (Dorsey) COMMNT (Normal) Comments: PATIENT WAS FASTINGPERFORMED BY: [facility]6370 [facility] [id number] 1:03 Comments: .A urine culture transport was received with no test indicated. Iftesting is required on this specimen, please contact the [facility] to obtain a Request forWritten Authorization Form. TSH 2.526 {uIU/mL} Comments: PATIENT WAS FASTINGPERFORMED BY: [place] [id number] [facility] [id number] 1:03 (Normal) Range: 0.450-4.500 :03 Urinalysis, Routine Comments: PATIENT WAS FASTINGPERFORMED BY: [facility]6370 [facility] [id number] Appearance Clear (Normal) Bilirubin Negative (Normal) Glucose Negative (Normal) Ketones Negative (Normal) Microscopic Examination See below: (Normal) Nitrite, Urine Negative (Normal) Occult Blood Negative (Normal) pH 7.0 (Normal) Range: 5.0-7.5 Protein Negative (Normal) Specific [place] 1.008 (Normal) Range: 1.005-1.030 Urine-Color Yellow (Normal) Urobilinogen,Semi-Qn 0.2 mg/dL (Normal) Range: 0.0-1.9 WBC Esterase Trace (Abnormal) :29 PT/INR, Office (72160) INR 2.6 (Normal) Comments: aw :16 HgA1C , Office (46717) HgA1C , Office 6.1 % (Normal) Range: 4.6 - 7.1 :16 Blood Glucose , Office (97703) Blood Glucose , Office 186 (Normal) :16 PT/INR, Office (55045) INR 2.8 (Normal) 04-Tih-468860:49 BILAT SCRN DIGITAL & CAD Radiology Report See Note (Normal) Comments: Exam Number: [id number] MAMMOGRAM, BILATERAL SCREENING DIGITAL AND CAD HISTORYRoutine [...] mammograms werealso examined with computer-aided detection software (ImageRegister My Info, [employer] Reported By: ELAINE NIEVES M.D. 40-Xvk-320748:37 PT/INR, Office (83474) INR 2.4 (Normal) 4-Wfr-839161:00 PT/INR, Office (01797) INR 1.9 (Normal) PT (PROTHROMBIN TIME) INR - 1.9 s (Normal) Range: 11.5-13.5 57-Pry-228881:18 DEXA BONE DENSITY/APPEND SKEL Radiology Report See Note (Normal) Comments: Exam Number: [id number] BONE DENSITOMETRY/APPENDICULAR SKELETON HISTORYOsteopenia. TECHNIQUE Bone densitometry [...] of osteopenia. Reported By: ELAINE NIEVES M.D. :08 PT/INR, Office (68672) INR 2.0 (Normal) :08 HgA1C , Office (84203) HgA1C , Office 6.3 % (Normal) Range: 4.6 - 7.1 :08 Blood Glucose , Office (83566) Blood Glucose , Office 177 (Normal) :13 [...] (Normal) PROTIME 28.9 s (Abnormal) Range: 10.6-13.2 :08 PRO TIME INR 3.4 (Normal) PROTIME 36.9 s (Abnormal) Range: 10.6-13.2 :20 PRO TIME INR 2.1 (Normal) PROTIME 23.9 s (Abnormal) Range: 10.6-13.2 :39 PRO TIME INR 3.1 (Normal) PROTIME 33.5 s (Abnormal) Range: 10.6-13.2 :22 HgA1C , Office (71268) HgA1C , Office 6.1 % (Normal) Range: 4.6 - 7.1 :22 Blood Glucose , Office (41581) Blood Glucose , Office 105 (Normal) :34 [...] s (Abnormal) Range: 10.6-13.2 :35 PT/INR, Office (44933) INR 2.7 (Normal) :56 HgA1C , Office (74794) HgA1C , Office 5.8 % (Normal) Range: 4.6 - 7.1 :56 Blood Glucose , Office (83725) Blood Glucose , Office 103 (Normal) :28 PRO TIME INR 2.8 (Normal) PROTIME 30.7 s (Abnormal) Range: 10.6-13.2 :55 PRO TIME INR 2.1 (Normal) PROTIME 24.0 s (Abnormal) Range: 10.6-13.2 :05 PT/INR, Office (64886) INR 2.5 (Normal) :05 Blood Glucose , Office (50361) Blood Glucose , Office 100 (Normal) :05 HgA1C , Office (93169) HgA1C , Office 6.2 % (Normal) Range: 4.6 - 7.1 :10 [facility] See Note (Normal) Comments: Exam Number: [id number] DIGITAL SCREENING MAMMOGRAPHY WITH CAD COMPARISON STUDYDated [...] werealso examined with computer- aided detection software (Imagechecker, [employer] Reported By: MAO KURTZ M.D. :49 PRO TIME INR 2.5 (Normal) PROTIME 27.8 s (Abnormal) Range: 10.6-13.2 :13 PRO TIME INR 2.7 (Normal) PROTIME 29.7 s (Abnormal) Range: 10.6-13.2 :14 PRO TIME INR 2.2 (Normal) PROTIME 24.3 s (Abnormal) Range: 10.6-13.2 :26 PT/INR, Office (17028) INR 2.5 (Normal) PT (PROTHROMBIN TIME) INR 2.5 s (Normal) Range: 11.5-13.5 :25 HgA1C , Office (05798) HgA1C , Office 6.0 % (Normal) Range: 4.6 - 7.1 :25 Blood Glucose , Office (38083) Blood Glucose , Office 108 (Normal) :20 [...] 47-70 WBC 6.0 K/mm3 (Normal) Range: 4.4-11.0 94-Qha-19598:20 COMP METABOLIC A/G 1.0 {RATIO} (Normal) Range: [...] Note Reference Interval Change :22 PT/INR, Office (64150) Comments: done- same dose recheck in 2 weeks-- alternate 4/5 INR 2.3 (Normal) :22 HgA1C , Office (16656) Comments: done HgA1C , Office 5.9 % (Normal) Range: 4.6 - 7.1 :21 Blood Glucose , Office (87711) Comments: done Blood Glucose , Office 101 [...] Comments: RESULTS CALLED TO DR PHELAN 10/04/06 5751 MICHELLE MATHEW.REPORT READ BACK BY SAME . PROTIME 57.0 s (Abnormal) Range: 11.7-13.3 :48 PRO TIME INR 2.8 (Normal) PROTIME 31.7 s (Abnormal) Range: 11.7-13.3 :18 PRO TIME INR 2.1 (Normal) PROTIME 24.9 s (Abnormal) Range: 11.7-13.3 :50 PT/INR, Office (54290) INR 1.9 (Normal) PT (PROTHROMBIN TIME) 16.9 s (Abnormal) Range: 11.5-13.5 :50 HgA1C , Office (72145) HgA1C , Office 6.0 % (Normal) Range: 4.6 - 7.1 :50 Blood Glucose , Office (25517) Blood Glucose , Office 95 (Normal) :59 [...] (Abnormal) Range: 11.7-13.3 :40 HgA1C , Office (66266) HgA1C , Office 5.7 % (Normal) Range: 4.6 - 7.1 :40 Blood Glucose , Office (34004) Blood Glucose , Office 115 (Normal) Plan of Care Name Dates Details Instructions Anasarca : Follow up in 3 months Indication: Anasarca Iron deficiency anemia : Reviewed [employer] Letter Indication: Iron deficiency anemia Valvular disease : Reviewed [employer] Professor Letter Indication: Valvular disease Lower GI bleed : Reviewed Lab Indication: Lower GI bleed Lower GI bleed : Reviewed [employer] Professor Letter Indication: Lower GI bleed Essential hypertension with goal blood pressure less than 130/80 : Reviewed [employer] Professor Letter Indication: Essential hypertension with goal blood [...] : Follow up in 2 weeks with [facility] SaturdayNovember 20 Indication: Cough Cough : [...] : FOLLOW UP IN 1 WEEK with [facility] Indication: Atrial fibrillation Mixed dyslipidemia : Diet, Exercise, and Wt loss Indication: Mixed dyslipidemia Cough : MDI Education Indication: Cough Mixed dyslipidemia : FOLLOW UP IN 2 MONTHS Indication: Mixed dyslipidemia FOLLOW UP IN 3 MONTHS Planned Observations Metabolic Panel, Comprehensive (28475)Indication: CKD (chronic kidney disease), stage III On: :09 Request CBC & PLATELETS (AUTO) (05782)Indication: Lower GI bleed On: :08 Request PT (PROTHROMBIN TIME) (61594)Indication: Lower GI bleed On: :08 Request Metabolic Panel, Basic (55830)Indication: Shortness of breath On: 02-Rma-14392:58 Request CBC, Platelets & Auto Diff (39134)Indication: Shortness of breath On: 72-Cnu-56681:55 Request BNTP (78299)Indication: Shortness of breath On: 95-Alo-15674:55 Request BNTP (60861)Indication: Acute CHF On: 8-Kwj-112641:18 Request METABOLIC PANEL, COMPREHENSIVE (24216)Indication: Acute CHF On: 2-Kia-776778:18 Request CBC & PLATELETS (AUTO) (64924)Indication: Acute CHF On: 0-Upk-449063:18 Request FERRITIN (55266)Indication: Iron deficiency anemia On: 2-Rco-264229:22 Request IRON BINDING CAPACITY (TIBC) (81761)Indication: Iron deficiency anemia On: :22 Request IRON (27861)Indication: Iron deficiency anemia On: : Request IRON & TOTAL IRON BINDING CAPACITY (82408)Indication: Iron deficiency anemia On: :22 Request LIPID PANEL (77906)Indication: Diabetes mellitus type II, controlled On: 8-Oth-374444:20 Request Metabolic Panel, Comprehensive (75814)Indication: Acute renal failure On: :19 Request PT (Prothrobim Time) (60717)Indication: Walking pneumonia On: 40-Luk-933488:20 Request PT (PROTHROMBIN TIME) (05536)Indication: Atrial fibrillation On: 03-May-2017 Request Comments: Standing order Ferritin (83899)Indication: Anemia, unspecified On: 33-Kme-659071:45 Request Iron (63804)Indication: Anemia, unspecified On: 54-Dca-747996:45 Request CBC WITH MANUAL DIFF (38407)Indication: Anemia, unspecified On: 22-Iuh-322864:45 Request CBC, Platelets & Auto Diff (70511)Indication: Lower GI bleed On: 57-Ajq-469593:40 Request Comments: Week of February 25, give lab slip HgA1C , Office (82584)Indication: Diabetes mellitus type II, controlled On: :26 Request Blood Glucose , Office (06110)Indication: Diabetes mellitus type II, controlled On: 19-Ugm-366695:26 Request FERRITIN (29747)Indication: Anemia, unspecified On: 25-Kkn-287278:26 Request HGB (HEMOGLOBIN) (98414)Indication: Lower GI bleed On: 97-Oem-954822:44 Request MAGNESIUM (18502)Indication: Acute renal failure On: :11 Request Comments: to be done around January 14 Metabolic Panel, Comprehensive (16098)Indication: Acute renal failure On: :06 Request Comments: to be done at [place] 01-14 CBC & PLATELETS (AUTO) (58960)Indication: Acute renal failure On: : Request Comments: to be done at [place] on 01-14 URINE SIOBHAN CULTURE-IDENTIFICATN (53218)Indication: Acute renal failure On: 8-Aek-689941:55 Request URINALYSIS (84224)Indication: Acute renal failure On: :51 Request Comments: December 25 Renal function Panel (18001)Indication: Acute renal failure On: :51 Request Comments: December 25 METABOLIC PANEL, BASIC (17093)Indication: Abnormal blood finding On: :00 Request CBC, PLATELETS & AUT DIFF (18223)Indication: Abnormal blood finding On: :00 Request Metabolic Panel, Basic (92931)Indication: Abnormal blood finding On: :01 Request Comments: stat CBC WITH MANUAL DIFF (75903)Indication: Abnormal blood finding On: :17 Request CBC, Platelets & Auto Diff (02744)Indication: Iron deficiency anemia On: 43-Dxx-345497:15 Request PT (PROTHROMBIN TIME) (50508)Indication: Atrial fibrillation On: :36 Request Comments: standing order FERRITIN (39921)Indication: Restless leg syndrome On: :32 Request IRON & TOTAL IRON BINDING CAPACITY (23422)Indication: Restless leg syndrome On: :32 Request MICROALBUMIN: CREATININE RATIO (48217) AND (10933)Indication: Restless leg syndrome On: :32 Request VITAMIN B12 AND FOLATES (98153)Indication: Restless leg syndrome On: :32 Request CALCIFEDIOL (97699)Indication: Restless leg syndrome On: :32 Request TSH (THYROID STIMULATING HORMONE) (81817)Indication: Restless leg syndrome On: :32 Request LIPID PANEL (91334)Indication: Mixed dyslipidemia On: :32 Request METABOLIC PANEL, COMPREHENSIVE (97503)Indication: BMI 45.0-49.9, adult On: :32 Request CBC, PLATELETS & AUT DIFF (52029)Indication: BMI 45.0-49.9, adult On: :32 Request FERRITIN (44437)Indication: Iron deficiency anemia On: Request IRON & TOTAL IRON BINDING CAPACITY (05906)Indication: Iron deficiency anemia On: Request LIPID PANEL (18572)Indication: Mixed dyslipidemia On: Request TSH (THYROID STIMULATING HORMONE) (52313)Indication: Mild vitamin D deficiency On: Request VITAMIN B12 AND FOLATES (62811)Indication: Mild vitamin D deficiency On: Request CALCIFEDIOL (77803)Indication: Mild vitamin D deficiency On: Request METABOLIC PANEL, COMPREHENSIVE (39284)Indication: Diabetes mellitus type 2, uncontrolled, without complications On: Request CBC, PLATELETS & AUT DIFF (14835)Indication: Diabetes mellitus type 2, uncontrolled, without complications On: Request LDH (LD) (LACTATE DEHYDROGENASE) (42183)Indication: Anemia, unspecified On: Request FOLIC ACID SERUM (94273)Indication: Anemia, unspecified On: Request SPEP (41696)Indication: Anemia, unspecified On: Request UPEP (41822)Indication: Anemia, unspecified On: Request FERRITIN (38478)Indication: Anemia, unspecified On: Request IRON (40554)Indication: Anemia, unspecified On: Request VITAMIN B-12 (CYANOCOBALAMIN) (72388)Indication: Anemia, unspecified On: Request JAFNS-ZEUNRGIAMUR-WNMIT (94822)Indication: Other chronic nonalcoholic liver disease On: Request CBC with auto diff (60385)Indication: Essential hypertension with goal blood pressure less than 130/80 On: Request HGB A1C (83665)Indication: Diabetes mellitus type II, controlled On: Request MICROALBUMIN: CREATININE RATIO (69925) AND (99001)Indication: Diabetes mellitus type II, controlled On: 8-Tjx-815262:06 Request LIPID PANEL (73359)Indication: Mixed dyslipidemia On: 8-Ikc-966937:06 Request Metabolic Panel, Basic (38884)Indication: Diabetes mellitus type 2, uncontrolled, without complications On: :01 Request MICROALBUMIN: CREATININE RATIO (85617) AND (99098)Indication: Diabetes mellitus type II, controlled On: 78-Adi-316959:00 Request METABOLIC PANEL, COMPREHENSIVE (25724)Indication: Diabetes mellitus type II, controlled On: 00-Qmq-178218:00 Request LIPID PANEL (43251)Indication: Mixed dyslipidemia On: :59 Request CBC (AUTO) (62743)Indication: Anemia, unspecified On: :59 Request Vitamin D Hydroxy (15400)Indication: Mild vitamin D deficiency On: :59 Request RFKVJ-LGOTTGDGEOC-SBKQD (62186)Indication: Other chronic nonalcoholic liver disease On: :57 Request CBC with auto diff (79028)Indication: Pulmonary hypertension On: 59-Wml-127403:50 Request Hemoglobin Glyclated (HGB A1C) (78274)Indication: Diabetes mellitus type II, controlled On: 28-Qnd-422180:50 Request METABOLIC PANEL, COMPREHENSIVE (06734)Indication: Essential hypertension with goal blood pressure less than 130/80 On: 79-Jpl-544840:49 Request LIPID PANEL (42625)Indication: Mixed dyslipidemia On: 05-Ioq-022497:49 Request LIPID PANEL (06596)Indication: Diabetes mellitus type II, controlled On: 75-Cbt-559952:49 Request HEPATIC FUNCTION PANEL (81230)Indication: Diabetes mellitus type II, controlled On: 37-Uxq-432605:49 Request Vitamin D Hydroxy (78519)Indication: Mild vitamin D deficiency On: :30 Request METABOLIC PANEL, COMPREHENSIVE (36173)Indication: Diabetes mellitus type II, controlled On: :30 Request LIPID PANEL (93729)Indication: Mixed dyslipidemia On: :30 Request YDGRA-DFROEAOUCDC-NRGYR (63582)Indication: Other chronic nonalcoholic liver disease On: :29 Request CBC with auto diff (87027)Indication: Anemia, unspecified On: Request MICROALBUMIN: CREATININE RATIO (01691) AND (99815)Indication: Diabetes mellitus type II, controlled On: Request METABOLIC PANEL, COMPREHENSIVE (91604)Indication: Essential hypertension with goal blood pressure less than 130/80 On: Request Vitamin D Hydroxy (52764)Indication: Mild vitamin D deficiency On: Request LIPID PANEL (84135)Indication: Mixed dyslipidemia On: Request LDH (LD) (LACTATE DEHYDROGENASE) (48234)Indication: Anemia, unspecified On: Request VITAMIN B-12 (CYANOCOBALAMIN) (46128)Indication: Anemia, unspecified On: Request IRON BINDING CAPACITY (TIBC) (36908)Indication: Anemia, unspecified On: Request FERRITIN (61428)Indication: Anemia, unspecified On: Request IRON (80073)Indication: Anemia, unspecified On: Request CBC W/AUTO DIFF WBC (19855)Indication: Anemia, unspecified On: Request LIPID PANEL (51884)Indication: Mixed dyslipidemia On: Request METABOLIC PANEL, COMPREHENSIVE (99650)Indication: Essential hypertension with goal blood pressure less than 130/80 On: Request CBC (AUTO) (71048)Indication: Anemia, unspecified On: Request Vitamin D Hydroxy (56018)Indication: Mild vitamin D deficiency On: Request VJKLT-AALILZFHHNH-XLGQG (09438)Indication: Other chronic nonalcoholic liver disease On: Request PTT (Activated Partial Thromboplastin Time) (23926)Indication: Other chronic nonalcoholic liver disease On: Request PT (Prothrobim Time) (35472)Indication: Other chronic nonalcoholic liver disease On: Request PT (Prothrobim Time) (96063)Indication: Atrial fibrillation On: :28 Request Comments: STANDING ORDER CBC WITH MANUAL DIFF (08977)Indication: Anemia, unspecified On: 48-Hpf-349572:53 Request LIPID PANEL (65088)Indication: Mixed dyslipidemia On: 71-Iul-044679:53 Request MICROALBUMIN: CREATININE RATIO (87499) AND (45707)Indication: Diabetes mellitus type II, controlled On: 69-Rmq-056426:52 Request METABOLIC PANEL, COMPREHENSIVE (34343)Indication: Diabetes mellitus type II, controlled On: 11-Vhd-331875:52 Request Vitamin D Hydroxy (47499)Indication: Mild vitamin D deficiency On: :52 Request Vitamin D Hydroxy (46400)Indication: Mild vitamin D deficiency On: 79-Ixl-380631:13 Request LIPID PANEL (94049)Indication: Mixed dyslipidemia On: 61-Sbj-977964:12 Request URIC ACID BLOOD (04148)Indication: Gout On: :12 Request KYTXY-CAGUUQHJRMX-MKWSV (62241)Indication: Other chronic nonalcoholic liver disease On: 48-Yvz-413149:12 Request PTT (Activated Partial Thromboplastin Time) (05503)Indication: Other chronic nonalcoholic liver disease On: 03-Fzw-562430:12 Request METABOLIC PANEL, COMPREHENSIVE (91147)Indication: Essential hypertension with goal blood pressure less than 130/80 On: 01-Olp-594783:12 Request CBC WITH MANUAL DIFF (88763)Indication: Anemia, unspecified On: 07-Jos-850297:11 Request PT (Prothrobim Time) (08589)Indication: Atrial fibrillation On: 28-Azc-253418:59 Request Comments: STANDING ORDER HEPATIC FUNCTION PANEL (13863)Indication: Mixed dyslipidemia On: 41-Gfm-463705:56 Request CBC WITH MANUAL DIFF (01576)Indication: Gout On: 22-Ike-096196:08 Request LIPID PANEL (79835)Indication: Mixed dyslipidemia On: :08 Request METABOLIC PANEL, COMPREHENSIVE (31921)Indication: Diabetes mellitus type II, controlled On: 83-Cep-868075:08 Request MICROALBUMIN: CREATININE RATIO (01016) AND (90476)Indication: Diabetes mellitus type II, controlled On: 22-End-160787:08 Request Metabolic Panel, Basic (42035)Indication: Hyperkalemia On: 11-Fun-537587:40 Request PT (Prothrobim Time) (99364)Indication: Atrial fibrillation On: 3-Xuy-073382:35 Request LIPID PANEL (58735)Indication: Mixed dyslipidemia On: :34 Request METABOLIC PANEL, COMPREHENSIVE (25995)Indication: Diabetes mellitus type II, controlled On: :33 Request MICROALBUMIN: CREATININE RATIO (99813) AND (47017)Indication: Diabetes mellitus type II, controlled On: :33 Request CBC WITH MANUAL DIFF (57232)Indication: Anemia, unspecified On: :33 Request CBC WITH MANUAL DIFF (60409)Indication: Anemia, unspecified On: 42-Jzf-055045:07 Request METABOLIC PANEL, COMPREHENSIVE (01244)Indication: Renal insufficiency (Renamed from Renal function impairment) On: 34-Ufy-386028:06 Request MICROALBUMIN: CREATININE RATIO (25656) AND (43289)Indication: Diabetes mellitus type II, controlled On: 93-Rdc-990171:06 Request LIPID PANEL (24012)Indication: Mixed dyslipidemia On: 06-Pqc-735490:06 Request QZHOM-RJDKDCVGOUT-GQHYV (29508)Indication: Other chronic nonalcoholic liver disease On: 25-Apt-320263:06 Request Vitamin D Hydroxy (99620)Indication: Mild vitamin D deficiency On: 58-Ifi-485730:05 Request Vitamin D Hydroxy (32332)Indication: Mild vitamin D deficiency On: 25-Ymu-524777:08 Request FLURESCNT ANTIB SCRN EA (91864) celiac profileIndication: Anemia, unspecified On: 60-Fot-226459:08 Request IGA/IGD/IGG/IGM-EACH (62570) celiac profileIndication: Anemia, unspecified On: 58-Ucu-521974:08 Request IMMUNOASSAY, ANALYTE (NON-INFECT) (67659) celiac profileIndication: Anemia, unspecified On: 91-Jyg-379673:08 Request METABOLIC PANEL, COMPREHENSIVE (36323)Indication: Diabetes mellitus type 2, uncontrolled, without complications On: 35-Fkr-430672:06 Request CBC with manual diff (94565)Indication: Anemia, unspecified On: 08-Mzh-316738:49 Request Iron Binding Capacity (TIBC) (50104)Indication: Anemia, unspecified On: :49 Request Iron (58283)Indication: Anemia, unspecified On: :49 Request Ferritin (96443)Indication: Anemia, unspecified On: :49 Request Metabolic Panel, Basic (35398)Indication: Abnormal blood chemistry On: :09 Request LIPID PANEL (98986)Indication: Mixed dyslipidemia On: :02 Request Metabolic Panel, Basic (42094)Indication: Renal insufficiency (Renamed from Renal function impairment) On: :01 Request IRON (06669)Indication: Anemia, unspecified On: :32 Request Vitamin D Hydroxy (07723)Indication: Mild vitamin D deficiency On: :49 Request LIPID PANEL (45992)Indication: Mixed dyslipidemia On: :48 Request CBC WITH MANUAL DIFF (55861)Indication: Anemia, unspecified On: 50-Dui-290113:48 Request METABOLIC PANEL, COMPREHENSIVE ([id number])Indication: Abnormal glucose tolerance test On: 65-Ghc-292874:48 Request MICROALBUMIN: CREATININE RATIO ([id number]) AND ([id number])Indication: Abnormal glucose tolerance test On: 36-Evv-811509:48 Request CALCIFEDIOL ([id number])Indication: Mild vitamin D deficiency On: 6-Jne-106336:16 Request LIPID PANEL ([id number])Indication: Mixed dyslipidemia On: 6-Mil-839790:16 Request METABOLIC PANEL, COMPREHENSIVE ([id number])Indication: Mixed dyslipidemia On: 2-Xnc-356083:16 Request URINALYSIS ([id number])Indication: Essential hypertension with goal blood pressure less than 130/80 On: 9-Vtq-173719:16 Request CBC with manual diff ([id number])Indication: Essential hypertension with goal blood pressure less than 130/80 On: 3-Zvy-648663:16 Request LDH (LD) (LACTATE DEHYDROGENASE) ([id number])Indication: Essential hypertension with goal blood pressure less than 130/80 On: 6-Gty-798825:16 Request Iron (21758)Indication: Essential hypertension with goal blood pressure less than 130/80 On: 3-Xie-666917:16 Request Ferritin ([id number])Indication: Essential hypertension with goal blood pressure less than 130/80 On: 0-Mfo-290432:16 Request URIC ACID BLOOD ([id number])Indication: Gout On: 08-Wvj-945735:49 Request LDH (LD) (LACTATE DEHYDROGENASE) ([id number])Indication: Anemia, unspecified On: 06-Bdr-690486:26 Request URIC ACID BLOOD ([id number])Indication: Gout On: :19 Request URIC ACID BLOOD ([id number])Indication: Gout On: 8-Nhd-786766:16 Request TSH (THYROID STIMULATING HORMONE) ([id number])Indication: Mixed dyslipidemia On: :29 Request URINALYSIS ([id number])Indication: Mixed dyslipidemia On: :28 Request LIPID PANEL (98887)Indication: Mixed dyslipidemia On: :27 Request CBC, PLATELETS & AUT DIFF (50908)Indication: Mixed dyslipidemia On: :18 Request METABOLIC PANEL, COMPREHENSIVE (14870)Indication: Mixed dyslipidemia On: :17 Request CALCIFEDIOL (42563)Indication: Mild vitamin D deficiency On: :16 Request HgA1C , Office ([id number])Indication: Abnormal glucose tolerance test On: :59 Request METABOLIC PANEL, BASIC (88879)Indication: Atrial fibrillation On: :30 Request METABOLIC PANEL, BASIC (33109)Indication: Atrial fibrillation On: :59 Request CBC WITH MANUAL DIFF ([id number])Indication: Atrial fibrillation On: :11 Request METABOLIC PANEL, COMPREHENSIVE (47238)Indication: Other chronic nonalcoholic liver disease On: :10 Request LIPID PANEL (47206)Indication: Mixed dyslipidemia On: :10 Request LIPID PANEL ([id number])Indication: Mixed dyslipidemia On: :11 Request CBC WITH MANUAL DIFF ([id number])Indication: Abnormal glucose tolerance test On: 6-Rpf-649770:11 Request MICROALBUMIN: CREATININE RATIO (61851) AND ([id number])Indication: Abnormal glucose tolerance test On: 1-Tgv-045268:11 Request Vitamin D Hydroxy (13848)Indication: Mild vitamin D deficiency On: :11 Request METABOLIC PANEL, COMPREHENSIVE ([id number])Indication: Other chronic nonalcoholic liver disease On: :10 Request METABOLIC PANEL, COMPREHENSIVE (13616)Indication: Abnormal glucose tolerance test On: 69-Mng-499550:10 Request MICROALBUMIN: CREATININE RATIO (62814) AND ([id number])Indication: Abnormal glucose tolerance test On: :10 Request LIPID PANEL ([id number])Indication: Mixed dyslipidemia On: :10 Request Vitamin D Hydroxy ([id number])Indication: Osteopenia On: 50-Nvp-261367:10 Request LIPID PANEL (87091)Indication: Mixed dyslipidemia On: :48 Request Vitamin D Hydroxy ([id number])Indication: Mild vitamin D deficiency On: :48 Request CBC WITH MANUAL DIFF ([id number])Indication: Abnormal glucose tolerance test On: :47 Request METABOLIC PANEL, COMPREHENSIVE ([id number])Indication: Abnormal glucose tolerance test On: :47 Request LIPID PANEL (65957)Indication: Mixed dyslipidemia On: 41-Nky-188205:39 Request METABOLIC PANEL, COMPREHENSIVE (02484)Indication: Hypercalcemia On: 66-Mru-949361:38 Request Vitamin D Hydroxy ([id number])Indication: Mild vitamin D deficiency On: 67-Ptp-250034:38 Request CBC (AUTO) (48574)Indication: Abnormal glucose tolerance test On: :28 Request Vitamin D Hydroxy (43532)Indication: Osteopenia On: :28 Request CBC WITH MANUAL DIFF ([id number])Indication: Essential hypertension with goal blood pressure less than 130/80 On: 58-Pgf-306351:28 Request MICROALBUMIN: CREATININE RATIO ([id number]) AND ([id number])Indication: Abnormal glucose tolerance test On: 29-Qbt-831737:28 Request METABOLIC PANEL, COMPREHENSIVE ([id number])Indication: Hypercalcemia On: 88-Kuv-803511:27 Request Vitamin D Hydroxy ([id number])Indication: Osteopenia On: 12-Gjo-396001:34 Request Metabolic Panel, Basic ([id number])Indication: Hyperkalemia On: 23-Mdq-070531:04 Request Comments: 1 week LIPID PANEL ([id number])Indication: Mixed dyslipidemia On: 90-Fxn-610738:34 Request TSH ([id number])Indication: Essential hypertension with goal blood pressure less than 130/80 On: 82-Bzp-531305:34 Request CBC WITH MANUAL DIFF ([id number])Indication: Essential hypertension with goal blood pressure less than 130/80 On: 60-Ddm-509587:34 Request METABOLIC PANEL, COMPREHENSIVE ([id number])Indication: Abnormal glucose tolerance test On: 97-Tav-831539:34 Request PT/INR, Office ([id number])Indication: Atrial fibrillation On: 67-Cio-49891:55 Request PT/INR, Office ([id number])Indication: Atrial fibrillation On: 7-Lzu-611498:36 Request PT (Prothrobim Time) ([id number])Indication: Atrial fibrillation On: 22-Oct-20087:58 Request METABOLIC PANEL, COMPREHENSIVE ([id number])Indication: Essential hypertension with goal blood pressure less than 130/80 On: 88-Muu-482651:09 Request CBC WITH MANUAL DIFF ([id number])Indication: Essential hypertension with goal blood pressure less than 130/80 On: 36-Kid-099651:09 Request MICROALBUMIN: CREATININE RATIO ([id number]) AND ([id number])Indication: Abnormal glucose tolerance test On: 94-Iiz-518631:09 Request HEPATIC FUNCTION PANEL ([id number]) On: 16-Paz-370232:07 Request LIPID PANEL ([id number])Indication: Mixed dyslipidemia On: 19-Gls-152818:07 Request PT/INR, Office ([id number])Indication: Atrial fibrillation On: 78-Dtj-082496:19 Request Comments: done>Wf. PT/INR, Office ([id number])Indication: Atrial fibrillation On: 05-Hlq-357508:30 Request METABOLIC PANEL, COMPREHENSIVE ([id number])Indication: Essential hypertension with goal blood pressure less than 130/80 On: 34-Tfg-186508:34 Request CBC WITH MANUAL DIFF ([id number])Indication: Essential hypertension with goal blood pressure less than 130/80 On: 76-Rkb-585299:34 Request HEPATIC FUNCTION PANEL ([id number])Indication: Mixed dyslipidemia On: 01-Cnp-657697:34 Request LIPID PANEL ([id number])Indication: Mixed dyslipidemia On: 29-Leb-346142:34 Request LIPID PANEL ([id number])Indication: Mixed dyslipidemia On: 37-Jsi-109254:51 Request URINALYSIS W/O MICRO ([id number])Indication: Essential hypertension with goal blood pressure less than 130/80 On: 45-Pbt-842033:51 Request TSH ([id number])Indication: Essential hypertension with goal blood pressure less than 130/80 On: 92-Doc-089976:51 Request CBC WITH MANUAL DIFF ([id number])Indication: Essential hypertension with goal blood pressure less than 130/80 On: 65-Fxe-861448:51 Request METABOLIC PANEL, COMPREHENSIVE ([id number])Indication: Essential hypertension with goal blood pressure less than 130/80 On: 62-Sbw-977547:51 Request TSH ([id number])Indication: Essential hypertension with goal blood pressure less than 130/80 On: 26-Oia-909787:44 Request METABOLIC PANEL, COMPREHENSIVE ([id number])Indication: Essential hypertension with goal blood pressure less than 130/80 On: 62-Nsk-858014:44 Request CBC WITH MANUAL DIFF ([id number])Indication: Essential hypertension with goal blood pressure less than 130/80 On: 26-Mhi-313706:44 Request MICROALBUMIN URINE QUANT (03753)Indication: Abnormal glucose tolerance test On: 82-Qdw-317961:59 Request METABOLIC PANEL, COMPREHENSIVE ([id number])Indication: Abnormal glucose tolerance test On: 98-Wcg-369014:57 Request CBC WITH MANUAL DIFF ([id number])Indication: Abnormal glucose tolerance test On: 40-Wjn-937443:57 Request LIPID PANEL ([id number])Indication: Mixed dyslipidemia On: 68-Bvg-630016:56 Request HEPATIC FUNCTION PANEL ([id number])Indication: Mixed dyslipidemia On: 57-Ppy-506959:56 Request HEPATIC FUNCTION PANEL ([id number])Indication: Mixed dyslipidemia On: 93-Tcj-421434:11 Request LIPID PANEL ([id number])Indication: Mixed dyslipidemia On: 33-Zwa-798664:11 Request Planned Encounters Medical; 3 Month FU - On: 10-Sep-2018 9:15 [facility] Sara Swartz CNP, CNP, Mary E Planned Procedures SCREENING DIGITAL TOMOSYNTHESIS OF On: 29-Jul-2018 Intent BREAST ([id number])By: Sara Swartz CNP, CNP, Mary E Aerosol Treatment ([id number])By: On: 08-Aug-2017 Intent Kaykay Layne Comments: Exp wheeze still heard after aerosol treatment-better air exchange though. Solu- Medrol Injection, 125mg On: 08-Aug-2017 Intent ([id number])By: Kaykay Layne Comments: lot [id number] mgleft gm IMas, HEALTH CARE RECRUITER Rocephin Injection, 2 Gram On: 06-Aug-2017 Intent ([id number])By: Kaykay Layne CHEST XRAY, PA & LATERAL ([id number])By: On: 06-Aug-2017 Intent Kaykay Layne Aerosol Treatment (71781)By: On: 06-Aug-2017 Intent Kaykay Layne RIGHT BREAST ULTRASOUND ([id number])By: On: 26-Jul-2017 Intent Tia HENRY, Magaly [place] CARL, Magaly SCREENING DIGITAL TOMOSYNTHESIS OF On: 20-May-2017 Intent BREAST ([id number])By: Sara Swartz CNP, CNP, Magaly Flu Vaccine (Quadrivalent) 46201Jh: On: 20-May-2017 Intent Tia HENRY Magaly Tia HENRY, Magaly Comments: Lot:[id number]:11/2017Dose:0.5mLRoute:IMSite:L DltdGiven By:mlVIS signed MAMMOGRAM, SCREENING, BOTH BREAST On: 26-Jun-2016 Intent ([id number])By: Jacinto Sheehan MD DEXA SCAN AXIAL SKELETON ([id number])By: On: 27-Mar-2016 Intent Jacinto Sheehan MD Ultrasound - LiverBy: Brittany Abraham DO On: 19-Dec-2015 Intent A PNEUM VAC ADLT/IMUMNOSPR, SBC/INTRM On: 05-Jul-2015 Intent ([id number])By: Raghu Downing Comments: PNEUMOlot:[id number]:1*13*17site:LT deltoidroute:IMdose:.5mlDEMICK, SMA MAMMOGRAM, SCREENING, BOTH BREAST On: 15-Jun-2015 Intent ([id number])By: Brittany Abraham DO Cartoid DopplerBy: Brittany Abraham DO On: 15-Jun-2015 Intent Flu Vaccine (Quadrivalent) 83070Qv: On: 15-Jun-2015 Intent Brittany Abraham DO Comments: Lot #:[id number] date: 01/2016Amount given:prefilled syringeSite given:L Dltd, IMGiven by: AYAKA Morris and ABN signed ADMINISTRATION OF INFLUENZA VIRUS On: 15-Jun-2015 Intent VACCINE (G0008)By: Brittany Abraham DO Overnight Pulse OX (79801)By: Jarad On: 18-Mar-2015 Intent Brittany RUIZ PFT - CompleteBy: Brittany Abraham DO On: 18-Mar-2015 Intent Radiology - Knee - Right - Weight On: 28-Jun-2014 Intent BearingBy: Brittany Abraham DO Radiology - Knee - Left - Weight On: 28-Jun-2014 Intent BearingBy: Brittany Abraham DO Prevnar 13 (53766)By: Jarad RUIZ, On: 08-Jun-2014 Intent Brittany Caro Comments: [id number] arm, IMMegan MAMMOGRAM, SCREENING, BOTH BREAST On: 08-Jun-2014 Intent ([id number])By: Brittany Abraham DO Comments: end jul Ultrasound - LiverBy: Brittany Abraham DO On: 08-Dec-2013 Intent A Inhaler Demonstration ([id number])By: On: 20-Nov-2013 Intent Tiffaniyany Sara HENRY E Tia Sara HENRY Aerosol Treatment (51353)By: Tia On: 20-Nov-2013 Intent Sara HENRY E TiffaniSara slade CNP Radiology - ChestBy: Sara Swartz CNP On: 04-Nov-2013 Intent E Sara Swartz CNP Comments: To be Done satNovember 18 Aerosol Treatment ([id number])By: Tia On: 03-Nov-2013 Intent Sara HENRY E TiffaniSara slade CNP Radiology - ChestBy: Miltongordo Sara HENRY On: 03-Nov-2013 Intent E Tia Sara HENRY Comments: call [facility] with wet read Eprescribed prescriptions ([id number])By: On: 08-Sep-2013 Intent Ariane Hartman MAMMOGRAM, SCREENING, BOTH BREASTS On: 01-May-2013 Intent ([id number])By: Brittany Abraham DO Comments: dec DXA, BONE DENSITY, AXIAL SKELETON On: 01-May-2013 Intent ([id number])By: Brittany Abraham DO Comments: dec FLU VAC, SPLIT, >3 YEARS, INTRAMUSC On: 01-May-2013 Intent ([id number])By: Ariane Hartman Comments: Lot #:[id number] date:mo given:0.5mlRoute: IMSite given: L dltdVIS and ABN signedGiven by: LILY Payton ADMINISTRATION OF INFLUENZA VIRUS On: 01-May-2013 Intent VACCINE (G0008)By: Ariane Hartman Eprescribed prescriptions ([id number])By: On: 01-May-2013 Intent Ariane Hartman Eprescribed prescriptions ([id number])By: On: 30-Jan-2013 Intent Ariane Hartman Eprescribed prescriptions ([id number])By: On: 31-Oct-2012 Intent Ariane Hartman Eprescribed prescriptions ([id number])By: On: 28-Jul-2012 Intent Ariane Hartman MAMMOGRAM, SCREENING, BOTH BREASTS On: 07-Jul-2012 Intent (08853)By: Brittany Abraham DO A Eprescribed prescriptions ([id number])By: On: 07-Apr-2012 Intent Ariane Hartman TDAP VACCINE >7 IM (02245)By: On: 03-Dec-2011 Intent Ariane Hartman Comments: Lot:[id number]:07/12/13Amt:prefilledRoute:IMSite:left deltGiven By: THERESA Hinson Doppler Ultrasound OtherBy: Fast DO, On: 03-Dec-2011 Intent Brittany A Comments: both legs stat call wet read Breast Screening - BilateralBy: Fast On: 08-Jun-2011 Intent DO Brittany A FLU VAC, SPLIT, >3 YEARS, INTRAMUSC On: 05-Jun-2011 Intent ([id number])By: Ariane Hartman Comments: Lot #:[id number] date:mount given:0.5mlRoute: IMSite given:left deltGiven by: LILY Payton ADMINISTRATION OF INFLUENZA VIRUS On: 05-Jun-2011 Intent VACCINE (G0008)By: Ariane Hartman Eprescribed prescriptions ([id number])By: On: 14-Feb-2011 Intent [place] Abraham DOa A IMMUNIZ ADMNIN, 1 VAC, SNGL/COMBO On: 30-Nov-2010 Intent (16389)By: Mona Merritt LPN Comments: Lot #[id number]-01/02/12Site- left arnDose 0.7given by:Eveline [place], [place] (95307)By: eRné CARDENAS, On: 30-Nov-2010 Intent Mona Kemp ADMINISTRATION OF INFLUENZA VIRUS On: 23-May-2010 Intent VACCINE (G0008)By: Ailyn Jones RN FLU VAC, SPLIT, >3 YEARS, INTRAMUSC On: 23-May-2010 Intent (23063)By: Ailyn Jones RN Comments: Lot #: [id number] date: mount given: 0.5 mlRoute: IMSite given: left deltoidGiven by: Gordo Iqbal RN DXA, BONE DENSITY, AXIAL SKELETON On: 09-May-2010 Intent ([id number])By: Brittany Abraham DO Comments: nov MAMMOGRAM, SCREENING, BOTH BREASTS On: 09-May-2010 Intent ([id number])By: Brittany Abraham DO Comments: end jun Doppler Ultrasound OtherBy: Ciesa On: 27-Dec-2009 Intent CARL Magaly Sara Swartz CNP E Comments: left leg, today, call wet read Radiology - Foot - LeftBy: Ciesa On: 27-Dec-2009 Intent CARL MagalySara Turk CNP E Comments: today call wet read MAMMOGRAM, SCREENING, BOTH BREASTS On: 24-Jun-2009 Intent ([id number])By: Maral Krishnan Inhaler Demo (15751)By: Shelton RUIZ, On: 09-Jun-2009 Intent Chikis Radiology - Chest- PA and LatBy: On: 09-Jun-2009 Intent Chikis Peoples DO Aerosol Treatment (59962)By: Shelton On: 09-Jun-2009 Chikis Lopez DO Comments: less irritablilty Wax Currettes (66980)By: Shelton RUIZ, On: 09-Jun-2009 Intent Chikis Comments: tolerated well - clean -currette used Ear Irrigation (43404)By: Shelton On: 09-Jun-2009 Chikis Lopez DO Comments: pt tolerated well Spirometry (51679)By: Shelton RUIZ, On: 09-Jun-2009 Intent Chikis Comments: poor effort started to have coughing fit FLU VAC, SPLIT, >3 YEARS, INTRAMUSC On: 19-May-2009 Intent (17762)By: Ailyn Jones RN IMMUNIZ ADMNIN, 1 VAC, SNGL/COMBO On: 19-May-2009 Intent (24328)By: Ailyn Jones RN Echo CompleteBy: Fast DO, Brittayn A On: 23-Feb-2009 Intent Echo CompleteBy: Fast DO, Brittany A On: 10-Jan-2009 Intent PNEUM VAC ADLT/IMUMNOSPR, SBC/INTRM On: 02-Aug-2008 Intent (70337)By: Blanca Tong Comments: Lot #[id number] date:mount given:0.5Site given: right deltoidGiven by:Chidi. ADMINISTRATION OF PNEUMOCOCCAL On: 02-Aug-2008 Intent VACCINE (G0009)By: Blanca Tong DXA, BONE DENSITY, AXIAL SKELETON On: 06-Apr-2008 Intent (36612)By: Jarad RUIZ Brittany A FLU VAC, SPLIT, >3 YEARS, INTRAMUSC On: 13-Jun-2007 Intent (93047)By: Savannah Vargas IMMUNIZ ADMNIN, 1 VAC, SNGL/COMBO On: 13-Jun-2007 Intent (81478)By: Savannah Vargas Overnight Pulse Ox(46337)By: On: 05-May-2007 Intent Blanca Tong Echo CompleteBy: Fast DO, Brittany A On: 18-Apr-2007 Intent Overnight Pulse OX (77695)By: Fast On: 18-Apr-2007 Intent DO, Brittany A MAMMOGRAM, SCREENING, BOTH BREASTS On: 14-May-2006 Intent (98069)By: Fast DO, Brittany A EKG (61548)By: Fast DO, Brittany A On: 14-May-2006 Intent Echo CompleteBy: Fast DO, Brittany A On: 14-May-2006 Intent Planned Medications INJECTION, CEFTRIAXONE SODIUM, PER 250 MG Ordered: 06-Aug-2017 Pending Kaykay Layne INJECTION, METHYLPREDNISOLONE SODIUM SUCCINATE, UP TO 125 MG Ordered: 08-Aug-2017 Pending Kaykay Layne Instructions Name Dates Details CKD (chronic kidney disease), stage III : DISCONTINUED - CBC, PLATELETS & AUT DIFF ([id number]) Indication: CKD (chronic kidney disease), stage III CKD (chronic kidney disease), stage III : DISCONTINUED - METABOLIC PANEL, COMPREHENSIVE (19035) Indication: CKD (chronic kidney disease), stage III [...] fibrillation : DISCONTINUED - PT (PROTHROMBIN TIME) (62953) Indication: Atrial fibrillation Atrial fibrillation : DISCONTINUED - PT (PROTHROMBIN TIME) (09783) Indication: Atrial fibrillation Lower GI bleed : DISCONTINUED - CBC, PLATELETS & AUT DIFF (03616) Indication: Lower GI bleed Lower GI bleed : DISCONTINUED - METABOLIC PANEL, COMPREHENSIVE (76969) Indication: Lower GI bleed Diabetes mellitus type [...] : DISCONTINUED - Hemoglobin Glyclated (HGB A1C) (53412) Indication: Diabetes mellitus type II, controlled Osteopenia : DISCONTINUED - Vitamin D Hydroxy (43869) Indication: Osteopenia Essential hypertension with goal blood pressure less than 130/80 : DISCONTINUED - METABOLIC PANEL, COMPREHENSIVE (47044) Indication: Essential hypertension with goal blood pressure less than 130/80 Other chronic nonalcoholic liver disease : DISCONTINUED - LZXGF-TLVJFPMFQXS-NMTQC (59298) Indication: 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 : DISCONTINUED - PTT (Activated Partial Thromboplastin Time) (32459) Indication: 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 : DISCONTINUED - PT (PROTHROMBIN TIME) (37843) Indication: Other chronic nonalcoholic liver disease Atrial fibrillation : DISCONTINUED - PT (PROTHROMBIN TIME) (82961) Indication: Atrial fibrillation Atrial fibrillation : DISCONTINUED - PT (PROTHROMBIN TIME) (74684) Indication: Atrial fibrillation Atrial fibrillation : DISCONTINUED - BLD CNT, COMPL CBC W/AUTO DIFF WBC (40527) Indication: Atrial fibrillation Anemia, unspecified : DISCONTINUED - CBC WITH MANUAL DIFF (73278) Indication: Anemia, unspecified Mild vitamin D deficiency : DISCONTINUED - Vitamin D Hydroxy (38634) Indication: Mild vitamin D deficiency Mild vitamin D deficiency : DISCONTINUED - Vitamin D Hydroxy (94154) Indication: Mild vitamin D deficiency Abnormal glucose tolerance test : DISCONTINUED - METABOLIC PANEL, COMPREHENSIVE (55817) Indication: Abnormal glucose tolerance test Abnormal glucose tolerance test : DISCONTINUED - METABOLIC PANEL, COMPREHENSIVE (61996) Indication: Abnormal glucose tolerance test Mixed dyslipidemia : DISCONTINUED - LIPID PANEL (87528) Indication: Mixed dyslipidemia Mixed dyslipidemia : DISCONTINUED - LIPID PANEL (35363) Indication: Mixed dyslipidemia Mixed dyslipidemia : DISCONTINUED - HEPATIC FUNCTION PANEL (55380) Indication: Mixed dyslipidemia Anemia, unspecified : DISCONTINUED - CBC WITH MANUAL DIFF (14338) Indication: Anemia, unspecified Diabetes mellitus type 2, [...] goal blood pressure less than 130/80 Encounters Phone Encounter On: 29-Jul-2018 9:47 Encounter Diagnosis: Encounter for screening mammogram for breast cancer (Renamed from Encounter for screening mammogram for malignant neoplasm of breast) End: 29-Jul-2018 9:49 [facility] Office Visit On: 10-Jun-2018 8:31 Encounter Reason: [...] Note for Transition into care: Again to [facility] End: 24-Mar-2018 10:05 n for GI Bleed 03-16-18 Dr. Li.... Gi doce at [place] , A pos. on 03-19 Bunm 19 creat 1.53 last hemoglobin on 03-19 discharge date 8.4. Got iron infusion at [place] and to get on Sat. by Dr. Michelle She wi ll see Dr. Pacheco he is GI at [place] Mar [address] Graham saw her this time., [ADDITIONAL REASON] Edema - Note for Edema: When taking lasix to take 2 lasix if gaining more than 2 lbs Last wt 03-24 349.6. Encounter Diagnosis: BMI 50.0-59.9, adult, Nonsmoker, [...] on 02-23-2018 at A End: 06-Mar-2018 9:[address] Nelson Perez. Will see again in [...] hospital. Note for Transition into care: On day of DC creat 1.57 K 4.1, Encounter Diagnosis: Mixed [...] Note for Transition into care: Sent to [place] for acute blood loss from coumadin, found ulcertations in the duodenum , no dieulofay lesions or AVM's procedue done by Dr. Victoria, An grace. Got 2 units FFP and 8 units of blood, at [place] and 6 more at [place]. INR was 3.7 and day before 2.1Pt [...] reevaluate ??Asking if still needs to see brick siding applicator Dr. Caruso periodic infusions and iron supplements, [ADDITIONAL REASON] [...] medical issues: Seeing new hematologi st Dr. Gaonaus Has had iron ??levels and iron infusions in Aug, in October will get blood work and reevaluate Asking if still needs to see brick siding applicator Dr. Caruso periodic infusions and iron supplementsEncounter [...] for chroni c medical issues: Seeing new brush maker machine Dr. Merchant Has had iron levels and iron infusions . Asking if still needs to see brick siding applicator Dr. MccurdyGetting periodic infusions and iron supplements, [...] - Note for Gastrointestinal bleeding: In hospital 56 to 9 with GI bleed with explosive GI Bleed wten tot ER at [facility] with CBC with hemoglobin of 8.7 then to 7.9 given a unit of blood, See by Dr. Hobbs for lower GI bleed with colonoscopy found bleeding diverticuli . Dr. Anaya hospitalist . Was on coumadin but taken off Encounter Diagnosis: CA (myocardial infarction), Nonsmoker, Lower GI bleed, BMI [...] coumadin on the . lst antibiotic on December 18.Had sepsis. Had blood in stool Scheduled with Dr. Hobbs. Sees Dr. Mccurdy on January 30 with BUN 52 creat 2.05 in hospi talRepeat labs on .- show creatinine at 1.21 which is improved. and Hemoglobin of 89.4 which is improved form 8.6 from 7.8. Encounter Diagnosis: BMI 50.0- 59.9, adult, Nonsmoker, Acute renal failure, Hyperkalemia (276.7), Sepsis, Anemia, unspecified, Iron deficiency anemia, CA (myocardial infarction) [facility] Office Visit [...] patient does not have 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 of employment law attorney or living will. The patient has noticed lack of energy. Other providers contributing to the patient's care are business liaison manager (Dr. Raymundo), tumbler drier operator (Leslie) and other: (chiropractor- once monthly). 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), Chronic obstructive pulmonary disease (COPD), Atrial fibrillation (427.31), Coronary atherosclerosis of [place] coronary vessel, Essential hypertension with goal blood [...] mellitus type II, controlled, Coronary atherosclerosis of [place] coronary vessel, Atrial fibrillation (427.31), Renal insufficiency [...] 5mg daily- Ate spinach over weekend at [employer].-- sugar better -saw cardio and monitori ng blood pressure -- no gout -seeing leslie he is adjusting her inhalers but we [...] but shallow breathign before not now so juan r [place] took her off cpap and now cant [...] patient does not have 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 of employment law attorney or living will. The patient has noticed lack of energy. Other providers contributing to the patient's care are business liaison manager (Dr. Raymundo) and other: (chiropractor- once monthly). [...] she is only drinking water- and w e discussed exercise-s aw cardio in tej reviewed letter- had eye check up thi [...] (427.31) [facility] Phone Encounter On: 21-May-2013 14:32 [facility] End: 21-May-2013 14:51 [...] insurance, cant a End: 28-Jul-2012 21:56 fford wilfridenta.), has good energy level and is sleeping [...] to 110's/60's). 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 Note for F westonlow up for chronic medical issues: feeling pretty [...] Mixed (272.2), Hypertension (401.0), Coronary atherosclerosis of [place] coronary vessel (414.01), Osteopenia (733.90) Comprehensive Internal [...] and overall feeling well- no change in swel ling that she gets in the summer and [...] for ER visit: note: (Pt. was at [facility] cath. 07-30-2006). The patient feels [...] (427.31), Hyperlipidemia, Mixed (272.2), Coronary atherosclerosis of [place] coronary vessel (414.01) Comprehensive Internal Medicine Historical [...]
--- OUTSIDE RECORDS SUMMARY | 2018-11-06 12:25 | XMS RPT_ITS ---
:1945 Author Organization OHIP Support Name Relationship Address Phone UMER ROLLE [address] + [place] [address] LIZA ROLLE Family Member Unavailable + R Unknown Unavailable Unavailable UMER ROLLE [address] + [place] [address] LIZA ROLLE Family Member Unavailable + R Unknown Unavailable Unavailable UMER ROLLE Unknown [address] + [place], [place] [id number] UMER ROLLE Spouse [address] Unavailable [place], [place] [id number] NOT GIVEN Unknown Unavailable Unavailable UMER ROLLE [address] + [place] [address] LIZA ROLLE Family Member Unavailable + R Unknown Unavailable Unavailable UMER ROLLE [address] + [place] [address] LIZA ROLLE Family Member [address] + [place] [address] R Unknown Unavailable Unavailable UMER ROLLE [address] + [place] [address] LIZA ROLLE Family Member [address] + [place] [address] R Unknown Unavailable Unavailable UMER ROLLE [address] + [place] [address] LIZA ROLLE Family Member [address] + [place] [address] R Unknown Unavailable Unavailable UMER ROLLE [address] + [place] [address] LIZA ROLLE Family Member [address] + [place] [address] R Unknown Unavailable Unavailable UMER ROLLE [address] + [place] [address] LIZA ROLLE Family [address] + [place] [address] R Unknown Unavailable Unavailable UMER ROLLE [address] + [place] [address] LIZA ROLLE Family [address] + [place] [address] R Unknown Unavailable Unavailable UMER ROLLE [address] + [place] [address] LIZA ROLLE Family [address] + [place] [address] R Unknown Unavailable Unavailable UMER ROLLE [address] + [place] [address] LIZA ROLLE Family Member [address] + [place] [address] R Unknown Unavailable Unavailable UMER ROLLE [address] + [place] [address] LIZA ROLLE Family Member [address] + [place] [address] R Unknown Unavailable Unavailable UMER ROLLE [address] + [place] [address] LIZA ROLLE Family Member [address] + [place] [address] R Unknown Unavailable Unavailable UMER ROLLE [address] [facility] [address] + [place] [address] LIZA ROLLE Family Member [address] + [place] [address] R Unknown Unavailable Unavailable UMER ROLLE [address] + [place] [address] LIZA ROLLE Family [address] + [place] [address] R Unknown Unavailable Unavailable UMER ROLLE [address] + [place] [address] LIZA ROLLE Family Member [address] + [place] [address] R Unknown Unavailable Unavailable UMER ROLLE [address] + [place] [address] LIZA ROLLE Family Member [address] + [place] [address] R Unknown Unavailable Unavailable UMER ROLLE [address] + [place] [address] LIZA ROLLE Family Member [address] + [place] [address] R Unknown Unavailable Unavailable UMER ROLLE [address] + [place] [address] LIZA ROLLE Family Member [address] + [place] [address] R Unknown Unavailable Unavailable UMER ROLLE Unknown Unavailable + MACY ROLLEA Unknown Unavailable + UMER ROLLE [address] + [place] [address] LIZA ROLLE Family [address] + [place] [address] R Unknown Unavailable Unavailable UMER ROLLE Unknown Unavailable + LIZA ROLLE Unknown Unavailable + UMER ROLLE [address] + [place] [address] LIZA ROLLE Family [address] + [place] [address] R Unknown Unavailable Unavailable UMER ROLLE [address] + [place] [address] LIZA ROLLE Family [address] + [place] [address] R Unknown Unavailable Unavailable UMER ROLLE Unknown Unavailable + MACY ROLLEA Unknown Unavailable + UMER ROLLE [address] + [place] [address] LIZA ROLLE Family [address] + [place] [address] R Unknown Unavailable Unavailable UMER ROLLE [address] + [place] [address] LIZA ROLLE Family [address] + [place] [address] R Unknown Unavailable Unavailable UMER ROLLE [address] [phone]~330-4 [place] [address] LIZA ROLLE Family [address] + [place] [address] R Unknown Unavailable Unavailable UMER ROLLE [address] + [place] [address] LIZA ROLLE Family Member [address] + [place] [address] R Unknown Unavailable Unavailable UMER ROLLE [facility] [address] [phone]~[phone] [place] [address] LIZA ROLLE Family [address] + [place] [address] R Unknown Unavailable Unavailable UMER ROLLE [facility] [address] + [place] [address] LIZA ROLLE Family Member [address] + [place] [address] R Unknown Unavailable Unavailable UMER ROLLE [place] [address] + [place] [address] LIZA ROLLE Family Member [address] + [place] [address] R Unknown Unavailable Unavailable UMER ROLLE [address] + [place] [address] LIZA ROLLE Family Member [address] + [place] [address] R Unknown Unavailable Unavailable UMER ROLLE [facility] [address] + [place] [address] LIZA ROLLE Family [address] + [place] [address] R Unknown Unavailable Unavailable UMER ROLLE [address] + [place] [address] LIZA ROLLE Family [address] + [place] [address] R Unknown Unavailable Unavailable UMER ROLLE [address] + [place] [address] LIZA ROLLE Family [address] + [place] [address] R Unknown Unavailable Unavailable ROLLE, UMER [address] + [place] [address] SARIAH, LIZA Family Member [address] + [place] [address] R Unknown Unavailable Unavailable UMER ROLLE [address] + [place] [address] SARIAH, LIZA Family Member [address] + [place] [address] R Unknown Unavailable Unavailable UMER ROLLE [address] + [place] [address] SARIAH, LIZA Family Member [address] + [place] [address] R Unknown Unavailable Unavailable UMER ROLLE [address] [phone]~330-4 [place] [address] SARIAH, LIZA Family Member [address] + [place] [address] R Unknown Unavailable Unavailable UMER ROLLE [address] [phone]~330-4 [place] [address] SARIHA, LIZA Family Member [address] + [place] [address] R Unknown Unavailable Unavailable UMER ROLLE [address] [phone]~330-4 [place] [address] MACY ROLLEA Family [address] + [place] [address] R Unknown Unavailable Unavailable UMER ROLLE [address] [phone]~[phone] [place] [address] SARIAH, LIZA Family [address] + [place] [address] R Unknown Unavailable Unavailable UMER ROLLE [address] [phone]~330-4 [place] [address] SARIAH, LIZA Family Member [address] + [place] [address] R Unknown Unavailable Unavailable UMER ROLLE [address] [phone]~330-4 [place] [address] SARIAH, LIZA Family [address] + [place] [address] R Unknown Unavailable Unavailable ROLLE, LIZA Family [address] + [place] [address] UMER ROLLE [address] [phone]~330-4 [place] [address] R Unknown Unavailable Unavailable UMER ROLLE [address] [phone]~330-4 [place] [address] LIAZ ROLLE Family [address] + [place] [address] R Unknown Unavailable Unavailable LIZA ROLLE Family [address] + [place] [address] UMER ROLLE [address] [phone]~330-4 [place] [address] R Unknown Unavailable Unavailable LIZA ROLLE Family [address] + [place] [address] UMER ROLLE [address] [phone]~330-4 [place] [address] R Unknown Unavailable Unavailable LIZA ROLLE Family [address] + [place] [address] UMER ROLLE [address] [phone]~330-4 [place] [address] R Unknown Unavailable Unavailable LIZA ROLLE Family [address] + [place] [address] UMER ROLLE [address] [phone]~330-4 [place] [address] R Unknown Unavailable Unavailable LIZA ROLLE Family [address] + [place] [address] MUER ROLLE [address] [phone]~330-4 [place] [address] R Unknown Unavailable Unavailable LIZA ROLLE Family [address] + [place] [address] UMER ROLLE [address] [phone]~330-4 [place] [address] R Unknown Unavailable Unavailable LIZA ROLLE Family [address] + [place] [address] UMER ROLLE [address] [phone]~330-4 [place] [address] R Unknown Unavailable Unavailable UMER ROLLE Unknown [address] + [place], [place] [id number] UMER ROLLE Spouse [address] Unavailable [place], [place] [id number] NOT GIVEN Unknown Unavailable Unavailable LIZA ROLLE Family Member [address] + [place] [address] UMER ROLLE [address] [phone]~330-4 [place] [address] R Unknown Unavailable Unavailable LIZA ROLLE Family Member [address] + [place] [address] UMER ROLLE [address] [phone]~330-4 [place] [address] R Unknown Unavailable Unavailable LIZA ROLLE Family [address] + [place] [address] UMER ROLLE [address] [phone]~330-4 [place] [address] R Unknown Unavailable Unavailable LIZA ROLLE Family [address] + [place] [address] UMER ROLLE [address] [phone]~[phone] [place] [address] R Unknown Unavailable Unavailable LIZA ROLLE Family Member [address] + [place] [address] UMER ROLLE [address] [phone]~330-4 [place] [address] R Unknown Unavailable Unavailable LIZA ROLLE Family Member [address] + [place] [address] UMER ROLLE [address] [phone]~330-4 [place] [address] R Unknown Unavailable Unavailable LIZA ROLLE Family Member [address] + [place] [address] UMER ROLLE [address] [phone]~330-4 [place] [address] R Unknown Unavailable Unavailable Care Team Providers Name Role Phone EWELINA MURDOCK MD Admitting Unavailable LAVONNEESA SUPERVISOR MICROWAVE, [facility] Primary Care Unavailable IZZY NIEVES MD Attending Unavailable FERNANDA WILLARD, DR. CISNEROS Consulting Unavailable MARGARETH BALDWIN., DR. CLARKE Li Consulting Unavailable MEHRDAD BALDWIN, NIYA Holloway Consulting Unavailable JABOUR DO, MISA F Consulting Unavailable YOLANDE BALDWIN, ANURAG Admitting Unavailable YOLANDE BALDWIN, ANURAG Attending Unavailable CIESA SUPERVISOR MICROWAVE, SARA Primary Care Unavailable KENY BALDWIN., DR. AGUIRRE Consulting Unavailable SHAMAR BALDWIN, JODI Consulting Unavailable CIESA SUPERVISOR MICROWAVE, [facility] Primary Care Unavailable JOAN DÍAZ Admitting Unavailable TAWNY BALDWIN, LYDIA Attending Unavailable STACY DAO MD, JR. Consulting Unavailable ZEESHAN LARRY MD Consulting Unavailable JABOUR DO, MISA F Consulting Unavailable RENITA, JEREMIAS () Attending Unavailable BREANNE, NIRAJ S Referring Unavailable RENITA, JEREMIAS () Referring Unavailable RENITA, JEREMIAS () Referring Unavailable RENITA, JEREMIAS () Referring Unavailable RENITA, JEREMIAS () Referring Unavailable RENITA, JEREMIAS () Referring Unavailable RENITA, JEREMIAS () Referring Unavailable RENITA, JEREMIAS () Referring Unavailable RENITA, JEREMIAS () Referring Unavailable LEIDY SCHMIDT (SUPERVISOR MICROWAVE) Referring Unavailable UNAI, SHINYA Attending Unavailable RENITA, JEREMIAS () Referring Unavailable RENITA, JEREMIAS () Referring Unavailable CIESA, SARA OCCUPATIONAL HYGIENIST Admitting Unavailable CIESA, SARA OCCUPATIONAL HYGIENIST Attending Unavailable CIESA, SARA OCCUPATIONAL HYGIENIST Primary Care Unavailable FAST, GREGORIA DO Consulting Unavailable PROVIDER, UNKNOWN Consulting Unavailable CIESA, SARA OCCUPATIONAL HYGIENIST Admitting Unavailable CIESA, SARA OCCUPATIONAL HYGIENIST Attending Unavailable CIESA, SARA OCCUPATIONAL HYGIENIST Primary Care Unavailable FAST, GREGORIA DO Consulting Unavailable PROVIDER, UNKNOWN Consulting Unavailable Ciesa, Sara Attending Unavailable Fast DO, Gregoria A Referring Unavailable Ciesa, Sara Consulting Unavailable Isckarus, Mansour Attending Unavailable Ciesa, Sara Referring Unavailable Ciesa, Sara Primary Care Unavailable Isckarus, Mansour Consulting Unavailable Ciesa, Sara Attending Unavailable Ciesa, Sara Primary Care Unavailable Isckarus, Mansour Attending Unavailable Ciesa, Sara Referring Unavailable Ciesa, Sara Primary Care Unavailable Isckarus, Mansour Consulting Unavailable Isckarus, Mansour Attending Unavailable Ciesa, Sara Primary Care Unavailable Ciesa, Sara Referring Unavailable Monty Anaya Attending Unavailable Lazaro Figueredo Attending Unavailable Ciesa, Sara Referring Unavailable Ciesa, Sara Primary Care Unavailable Serge Gaxiola Attending Unavailable [facility] Referring Unavailable [facility] Primary Care Unavailable Serge Gaxiola Attending Unavailable [facility] Care Unavailable Nighat Robertson Attending Unavailable Nighat Robertson Referring Unavailable [facility] Care Unavailable IsckenyusTrevorour Attending Unavailable Isckarus, Mansour Referring Unavailable [facility] Unavailable Isckarus, Mansour Consulting Unavailable [facility] Care Unavailable Ariane Lakhani Attending Unavailable [facility] Primary Care Unavailable White, Nohemi Admitting Unavailable [place], Bobib Consulting Unavailable Zeus Vera Attending Unavailable Larisa, Leslie Consulting Unavailable White, Nohemi Admitting Unavailable White, Nohemi Attending [facility]available [facility] Care Unavailable [place], Bobbi Consulting Unavailable White, Nohemi Consulting Unavailable White, Nohemi Admitting Unavailable Eric Fontaine Attending Unavailable [facility] Care Unavailable [place], Bobbi Consulting Unavailable Larisa, Leslie Consulting Unavailable Kittoalexandro Eric Consulting Unavailable White, Noehmi Admitting Unavailable [facility] Primary Care Unavailable [place], Bobbi Consulting Unavailable Eric Fontaine Attending Unavailable Larisa, Leslie Consulting Unavailable KitEric casillas Consulting Unavailable White, Nohemi Admitting Unavailable Larisa, Leslie Attending Unavailable [facility] Care Unavailable [place], Bobbi Consulting Unavailable Larisa, Leslie Consulting Unavailable Zeus Vera Consulting Unavailable Zeus Vera Attending Unavailable White, Nohemi Admitting Unavailable [facility] Care Unavailable [place], Bobbi Consulting Unavailable Larisa, Leslie Consulting Unavailable Jody Zeus Consulting Unavailable Isckarus, Trevorour Attending Unavailable Isckarus, Mansour Referring [facility]available [facility] Unavailable Isckarus, Mansour Consulting Unavailable Larisa, Leslie Attending Unavailable White, Nohemi Referring Unavailable Carlos Nelson Attending Unavailable Carlos Nelson Referring Unavailable [facility] Care Unavailable Isckarus, Trevorour Attending Unavailable Isckarus, Mansour Referring Unavailable [facility] Care Unavailable Isckarus, Mansour Consulting Unavailable Bo Madrid Attending Unavailable Isckarus, Mansour Referring Unavailable [facility] Primary Care Unavailable Bo Madrid Attending Unavailable Bo Madrid Referring Unavailable [facility] Primary Care Unavailable Carlos Nelson Attending Unavailable Ciesa, Sara Primary Care Unavailable Bo Madrid Attending Unavailable BettinaettaBo Referring Unavailable Ciesa, Sara Primary Care Unavailable Bo Madrid Consulting Unavailable Bo Madrid Attending Unavailable Ciesa, Sara Referring Unavailable Ciesa, Sara Primary Care Unavailable Carlos Nelson Attending Unavailable Carlos Nelson Referring Unavailable Ciesa, Sara Primary Care Unavailable Saleem Zavala Attending Unavailable White, Nohemi Referring Unavailable Ciesa, Sara Primary Care Unavailable White, Nohemi Admitting Unavailable [place], [place] Attending Unavailable White, Nohemi Admitting Unavailable Billie Segovia, OCCUPATIONAL HYGIENIST-C Attending Unavailable [facility] Primary Care Unavailable [place], [place] Consulting Unavailable Isckarus, Trevorour Attending Unavailable Ciesa, Sara Referring Unavailable Ciesa, Sara Primary Care Unavailable Isckarus, Mansour Consulting Unavailable [facility] Primary Care Unavailable Hayde Ruvalcaba Attending Unavailable Ciesa, Sara Attending Unavailable Ciesa, Sara Primary Care Unavailable Fozia Huang Attending Unavailable Aaron, Nohemi Attending Unavailable Lazaro Figueredo Attending Unavailable Ciesa, Sara Referring Unavailable SemenFozia rausch Attending Unavailable Billie Segovia, OCCUPATIONAL HYGIENIST-C Attending Unavailable Billie Segovia, OCCUPATIONAL HYGIENIST-C Attending Unavailable Billie Segovia, OCCUPATIONAL HYGIENIST-C Attending Unavailable Ciesa, Sara Primary Care Unavailable Niya Soria Attending Unavailable Champ Ann Attending Unavailable Isckarus, Mansour Attending Unavailable Ciesa, Sara Referring Unavailable Ciesa, Sara Primary Care Unavailable Isckarus, Mansour Consulting Unavailable Breanne, [place] Attending Unavailable Isckarus, Mansour Attending Unavailable Ciesa, Sara Referring Unavailable Ciesa, Sara Primary Care Unavailable Isckarus, Mansour Consulting Unavailable Natalia Mccurdy Attending Unavailable Ciesa, Sara Primary Care Unavailable Breanne, [place] Attending Unavailable Ciesa, Sara Referring Unavailable Ciesa, Sara Primary Care Unavailable Isckarus, Mansour Attending Unavailable Ciesa, Sara Referring Unavailable Ciesa, Sara Primary Care Unavailable Isckarus, Mansour Consulting Unavailable Breanne, [place] Attending Unavailable Breanne, Niraj Referring Unavailable Ciesa, Sara Primary Care Unavailable Breanen, [place] Attending Unavailable Ciesa, Sara Referring Unavailable Breanne, [place] Attending Unavailable Breanne, Niraj Referring Unavailable Ciesa, Sara Primary Care Unavailable Breanne, Niraj Attending Unavailable Breanne, [place] Referring Unavailable Sara Zarate Primary Care Unavailable Breanne, [place] Consulting Unavailable Breanne, [place] Attending Unavailable Elliot, Sara Referring Unavailable Isckarus, Mansour Attending Unavailable Ciesa, Sara Referring Unavailable Ciesa, Sara Primary Care Unavailable Isckarus, Mansour Consulting Unavailable Breanne, [place] Attending Unavailable Breanne, Niraj Referring Unavailable Natalia Mccurdy Attending Unavailable Lavonneesnikki, Sara Primary Care Unavailable Chance Maloney Attending Unavailable Ciesa, Sara Referring Unavailable Isckarus, Mansour Attending Unavailable Ciesnikki, Sara Referring Unavailable Ciesnikki, Sara Primary Care Unavailable Isckarus, Mansour Consulting Unavailable Purpose Purpose PROBLEMS PROBLEMS DATE TYPE CONDITION / CODE ATTENDING STATUS SOURCE Unknown N18.3 - Chronic kidney Isckarus, Active [facility] 9 disease, stage 3 [facility] (moderate) / Hospital N18.3(ICD-10) Repository Unknown 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, 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, [facility] unspecified / Hospital D50.9(ICD-10) Repository Unknown D64.9 - Anemia, Isckarus, Active [place] 9 unspecified / [facility] D64.9(ICD-10) Hospital Repository Unknown N18.9 - Chronic kidney Isckarus, Active [place] 9 disease, unspecified / [facility] N18.9(ICD-10) Hospital Repository Active Encounter for NA Active [facility] preprocedural Clinic Main cardiovascular [place] examination / Repository Z01.810(ICD-10) Active Shortness of breath / NA Active [facility] R06.02(ICD-10) Clinic Main [place] Repository Active Encounter for other NA Active [facility] preprocedural Clinic Main examination / [place] Z01.818(ICD-10) Repository Active 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, Clinic Main unspecified / [place] I35.9(ICD-10) Repository Unknown 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, 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 / I25.10(ICD-10) Unknown I48.2 - Chronic atrial Manoj Raymundoril Active [place] 8 fibrillation / Community I48.2(ICD-10) Hospital Repository Unknown I10 - Essential Breanne, [place] Active [facility] 8 (primary) hypertension Community / I10(ICD-10) Hospital Repository Unknown I35.0 - Nonrheumatic Breanne, [place] Active [place] 8 aortic (valve) Community stenosis / Hospital I35.0(ICD-10) Repository Unknown 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, 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 hypertension / Hospital I27.29(ICD-10) Repository Unknown I34.0 - Nonrheumatic Breanne, [place] Active [place] 8 mitral (valve) Community insufficiency / Hospital I34.0(ICD-10) Repository Unknown K92.2 - Breanne, Niraj Active [place] 8 Gastrointestinal Community hemorrhage, Hospital unspecified / Repository K92.2(ICD-10) Unknown E78.5 - Breanne, Niraj Active [facility] 8 Hyperlipidemia, Community unspecified / Hospital E78.5(ICD-10) Repository Unknown I36.1 - Nonrheumatic BreanneManoj vieraril Active [place] 8 tricuspid (valve) Community insufficiency / Hospital I36.1(ICD-10) Repository Unknown R06.02 - Shortness of Breanne, [place] Active [facility] 8 breath / Community R06.02(ICD-10) Hospital Repository Unknown R01.1 - Cardiac BreanneManoj vieraril Active [place] 8 murmur, unspecified / Community R01.1(ICD-10) Hospital Repository Unknown Z51.89 - Encounter for Sara Zarate Active [place] 8 other specified Community aftercare / Hospital Z51.89(ICD-10) Repository Unknown J90 - Pleural Carlos Nelson Active [place] 8 effusion, not Community elsewhere classified / Hospital J90(ICD-10) Repository Unknown I50.9 - Heart failure, [place], [place] Active [facility] 8 unspecified / Community I50.9(ICD-10) Hospital Repository Unknown I50.43 - Acute on Champ Ann Active [facility] 8 chronic combined Community systolic (congestive) Hospital and diastolic Repository (congestive) heart failure / I50.43(ICD-10) Unknown Z45.2 - Encounter for Julius Active [facility] 8 adjustment and Bo Community management of vascular Hospital access device / Repository Z45.2(ICD-10) Unknown I48.0 - Paroxysmal Saleem Zavala Active [facility] 8 atrial fibrillation / Community I48.0(ICD-10) Hospital Repository Unknown R94.31 - Abnormal Saleem Zavala Active [facility] 8 electrocardiogram Community [ECG] [EKG] / Hospital R94.31(ICD-10) Repository Unknown 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 N17.9(ICD-10) Hospital Repository Unknown R30.0 - Dysuria / Serge Gaxiola Active [facility] 8 R30.0(ICD-10) [facility] Hospital Repository Unknown N39.0 - Urinary tract Serge Gaxiola Active [facility] 8 infection, site not Community specified / Hospital N39.0(ICD-10) Repository PROCEDURES PROCEDURES No Procedure Records FoundVITAL SIGNS VITAL SIGNS No Vital Signs Records FoundRESULTS RESULTS ONCOLOGY VISIT REPORT Observed: 09/04/2018 Status: F Source: [facility] 2:28 PM [facility] REPOSITORY [facility] [place] [address] OFFICE VISIT Date of Service: 09/04/18 1352 MR#: [id number] Acct: [id number] Name: GABBI ROLLE Rep #: [id number] : 1945 From: Halley Khan MD Age/Sex: 73/F Location: ONC Status: Signed - Problem List (1) Anemia Status: Chronic Qualifiers: Anemia type: unspecified type Qualified Code(s): D64.9 - Anemia, unspecified (2) Iron deficiency [...] - Date of Service Date of Service:: 09/04/18 - Chief Complaint Anemia followup - History of Present Illness Patient is a 72-year-old female with a past medical history notable for morbid obesity diabetes chronic renal failure hypertension chronic atrial fibrillation on long-term anticoagulation (had to be held in 2018) and chronic and episodic acute GI blood loss (GI nuclear scan January 2018 reported:2 separate foci of active extravasation (active bleeding) of radiotracer located in the stomach and in the upper ascending colon.) She had been on oral iron supplement averaging 1-3 [...] and was urgently transferred to [facility] where she underwent a nuclear medicine GI blood loss imaging followed by angiography and embolization of a bleeding artery. - Interval History Elective aortic valve surgery planned for September 15, 2018 at [facility] - Past Medical/Social History Past Medical History Past Medical History: Anemia,Bleeding disorder,Blood transfusion, Diabetes mellitus,Diverticulitis,Edema,GI bleed, Heart disease,Hyperlipidemia,Hypertension,Liver disease,Obesity,Osteopenia,Pneumonia, Postmenopausal,Vitamin D deficiency,Fatigue Other Past Medical History: PULMONARY HYPERTENTION UTI (SEPTIC) GIB Past Surgical History Surgical: Appendectomy,Hysterectomy Other Surgical History: RIGHT FOOT SURGERY 1986 Family History Paternal Past Medical History: Heart disease Maternal Past Medical History: Unknown Maternal History of Cancer: Uterine cancer Social History Social History: No changes Smoking Status Never smoker Review of Systems Constitutional:: Reports: Weakness - Chronic, at baseline, able to do it year. Denies: Fever, Sweats, Weight loss, Appetite change, Chills Cardiovascular:: Reports: Dyspnea on exertion. Denies: Chest pain, Palpitations, Orthopnea, PND, Shortness of breath Respiratory: Reports: Shortness of breath upon exertion. Denies: Cough, Hemoptysis, Shortness of Breath, Wheezing Gastrointestinal:: Denies: Abdominal pain, Nausea, Vomiting, Diarrhea, Constipation, Hematochezia Genitourinary: Denies: Dysuria, Hematuria, 15, Flank pain Musculoskeletal:: Reports: Arthralgia. Denies: Back pain, Myalgia Skin: Denies: Rash, Skin Changes, Wounds Neurological:: Denies: Headache, Dizziness, Visual changes, Tinnitus, Hearing loss Psychiatric: Denies: Anxiety, Depression, Homicidal Ideations, Suicidal Ideations Vital Signs Height 5 ft 7 in Weight: 141.702 kg Weight in Pounds 312.4 lbs Pulse Ox 98 - Physical Exam General: Alert, Oriented x3, No apparent distress HEENT: Atraumatic, PERRLA, EOMI, Normocephalic Oropharynx:: Dry mucosa Neck:: Supple, Trachea midline. Negative for: JVD, bilateral Cardiac:: Regular rate, Regular rhythm, Normal S1, Normal S2, Murmur Lungs: Clear to auscultation Extremities:: Edema - Gross nonpitting. Negative for: Cyanosis Skin:: Ecchymosis - With crowding trophic changes of the skin lower extremity. Negative for: Lesions, Rash, Petechiae Psychiatric:: Appropriate affect, Euthymic Lymphatics:: Negative for: Cervical lymphadenopathy, Supraclavicular lymphadenopathy Laboratory Data: Laboratory Tests RBC Hgb Hct [...] L Hct 18.8 L Iron Saturation 26.7 Ferritin 109 RBC Hgb 6.4 L 8.5 L Hct 21.3 L 28.7 L Iron Saturation 13.0 L Ferritin 60 RBC Hgb 8.2 L 8.8 L Hct 27.6 L 30.3 L Iron Saturation 12.7 L Ferritin 54 RBC Hgb Hct 30.9 L Iron Saturation 31.9 11.8 L Ferritin 135 44 RBC Hgb 9.7 L Hct 29.7 L 32.2 L Iron Saturation 13.4 L Ferritin 55 RBC Hgb 10.9 L Hct 35.6 L Iron Saturation 14.1 L 16.9 Ferritin 66 73 RBC Hgb 10.8 L Hct 35.1 L Iron Saturation 16.4 Ferritin 108 Assessment and Plan 73-year-old female with chronic recurring anemia most consistent with multiple factors includin. 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 2. Anemia of chronic renal failure. With [...] on top of colonic pathology . Anticoagulation discontinued 2017. 5. Heart valve surgery planned September 15, 2018, will follow her up in 1-2 weeks after Patient was seen was her impression and plan discussed. Medications: Prescriptions This Visit Medication Instructions Recorded Ipratropium/Albuterol Sulfate 2 puff IH Q4H PRN PRN 01/03/18 [Combivent Respimat Inhal [place]] Furosemide [Lasix] 40 mg PO BID 01/15/18 Primary Care Provider: Sara Zarate Referring Provider: Halley Khan MD 09/04/18 1428 <Electronically signed by Halley Khan MD> Date Halley Khan MD Cosigner Signature: Date (if applicable) CC: LIPID PROFILE Collected: 09/04/2018 Status: F Source: [facility] 7:54 AM [facility] REPOSITORY TYPE CODE TESTS RESULT OUT OF REFERENCE UNITS RANGE LAB LIPID PROFILE(LOIN C) LIPID PROFILE Result Comment: LIPID PROFILE LAB TRIGLYCERIDE(LOINC) 0 - 150 mg/dl TRIGLYCERIDE 140 LAB CHOLESTEROL(LOINC) 0 - 200 mg/dl CHOLESTEROL 128 LAB HDL(LOINC) 40 - 60 mg/dl HDL Low 31 LAB CHOL/HDL(LOINC) 0.0 - 5.0 CHOL/HDL 4.1 LAB LDL(LOINC) 0 - 129 mg/dl LDL 69 Performed By: #### [id number] #### [facility],[address] [address] VITAMIN D,25 HYDROXY Collected: 08/29/2018 Status: F Source: [place] 1:19 PM [facility] REPOSITORY Order Comment: PATIENT TO RETURN FOR LASTING LIPID PROFILE.Reason for Laboratory Test .PATIENT TO RETURN FOR LASTING LIPID PROFILE. SARA ZARATE ORDERED: CMP, LIPID, TSH, VITD DR KHAN ORDERED: IBC,SUSANA,CBCD,XTRAS TYPE CODE TESTS RESULT OUT OF RANGE REFERENCE UNITS LAB L506.1000 29.95-100.01 ng/mL Normal Vitamin D 61.6 25-OH Result Comment: Vitamin D 25(OH) Status Range Deficiency <20 ng/mL (50nmol/L) Insuffciency 20 - 30 ng/mL (50 - 75 nmol/L) Sufficiency 30 - 100 ng/mL (75 - 250 nmol/L) Toxicity >100 ng/mL (>250 nmol/L) Performed By: #### L506.1000 #### [facility] [address] [place], [address] CBC W/DIFF, AUTOMATED Collected: 08/29/2018 Status: F Source: [place] 1:18 PM [facility] REPOSITORY Order Comment: Reason for Laboratory Test . Reason for Laboratory Test .PATIENT TO RETURN FOR LASTING LIPID PROFILE. SARA ELLIOT ORDERED: CMP, LIPID, TSH, VITD DR KHAN ORDERED: IBC,SUSANA,CBCD,XTRAS TYPE CODE TESTS RESULT OUT OF RANGE REFERENCE UNITS LAB L100.1000 4.4-11.0 K/mm3 Normal WBC 4.7 LAB L100.1200 4.2-5.4 M/mm3 Low RBC 3.66 LAB L100.1300 12.0-15.0 g/dl Low HGB 10.8 LAB L100.1400 37-47 % Low HCT 35.1 LAB L100.1500 81-99 fL Normal MCV 95.9 LAB L100.1600 27.0-32.0 pg Normal MCH 29.5 LAB L100.1700 32-36 g/gl Low MCHC 30.8 LAB L100.1810 11.6-14.6 % High RDW CV 15.9 LAB L100.1820 35.1-43.9 fl High RDW SD 55.4 LAB L100.1900 150-450 K/mm3 Low PLT 125 LAB L100.2000 6.2-12.0 fl High MPV 13.2 LAB L100.2100 47-70 % High NEUT% 71.2 LAB L100.2200 19-41 % Normal LY% 21.1 LAB L100.2300 0-10 % Normal MONO% 4.5 LAB L100.2400 0-5 % Normal EO% 2.6 LAB L100.2500 0-1 % Normal BASO% 0.4 LAB L100.2550 0.0-0.9 % Normal IM GRAN % 0.200 Result Comment: IG% - Immature Granulocytes (promyelocytes, myelocytes and metamyelocytes) > 1% indicates that a LEFT SHIFT is Present. LAB L100.2620 2.0-7.7 X10 3/uL Normal Absolute Neut 3.3 LAB L100.2720 0.83-4.51 X10 3/ul Normal Absolute Lymph 0.99 Performed By: #### L100.0100 #### [facility] [address] [place], [address] COMPREHENSIVE METABOLIC Collected: 08/29/2018 Status: F Source: [facility] 1:18 PM [facility] REPOSITORY Order Comment: Reason for Laboratory Test .PATIENT TO RETURN FOR LASTING LIPID PROFILE. SARA ZARATE ORDERED: CMP, LIPID, TSH, VITD DR KHAN ORDERED: IBC,SUSANA,CBCD,XTRAS Comments: SARA ZARATE ORDERED TYPE CODE TESTS RESULT OUT OF RANGE REFERENCE UNITS LAB L501.0100 74-106 mg/dL High GLU 122 Result Comment: Fasting Glucose result from 100 to 125 mg/dL suggests IMPAIRED HOMEOSTASIS per A.D.A. criteria. Please note revised GLUCOSE reference range effective 2017. LAB L501.1000 7-18 mg/dL High BUN 27 LAB L501.1100 0.55-1.02 mg/dL High CREAT,SERUM 1.65 Result Comment: The validity of the calculated GFR AND GFRAA in patients over 70 years has not been determined. Clinical correlation is essential. LAB L501.1110 >60 mL/min Low EST GFR 32 Result Comment: Non- GFR Calc LAB L501.1115 >60 mL/min Low EST GFR - AA 39 Result Comment: GFR Calc LAB L501.1255 ml/min Normal Estimated CRCL 28.65 LAB L501.1300 10-20 RATIO Normal BUN/CRE 16.4 LAB L501.1500 6.4-8. g/dL Normal 2 T PROT 7.7 LAB L501.1800 3.2-5. g/dL Normal 0 ALB 3.9 LAB L501.1950 2.2-4. g/dL Normal 2 GLOB 3.8 LAB L501.2000 0.9-2. RATIO Normal 4 A/G 1.0 LAB L501.2200 8.5-10 mg/dL Normal .1 CA 9.4 LAB L501.4100 15-37 U/L Low AST 14 LAB L501.4305 45-117 U/L Normal ALK P 93 LAB L501.4405 13-56 U/L Normal ALT 19 LAB L501.4600 0.20-1 mg/dL Normal .00 T BILI 0.50 LAB L501.5300 136-14 mmol/L Normal 5 NA 144 LAB L501.5600 3.5-5. mmol/L Normal 1 K 4.0 LAB L501.5900 98-107 mmol/L High CL 109 LAB L501.6100 21.0-3 mmol/L Normal 2.0 CO2 27.0 LAB L501.6200 5-15 Normal GAP 8 Performed By: #### L500.4050, L501.9520, L503.6030, L503.6550 #### [facility] [address] [place], [address] THYROID STIM HORMONE Collected: 08/29/2018 Status: F Source: [place] ([facility]) 1:18 PM [facility] REPOSITORY Order Comment: Reason for Laboratory Test .PATIENT TO RETURN FOR LASTING LIPID PROFILE. SARA ZARATE ORDERED: CMP, LIPID, TSH, VITD DR KHAN ORDERED: IBC,SUSANA,CBCD,XTRAS Comments: SARA ZARATE ORDERED TYPE CODE TESTS RESULT OUT OF RANGE REFERENCE UNITS LAB L501.9520 0.358-3.74 uIU/mL Normal TSH 3.28 Performed By: #### L500.4050, L501.9520, L503.6030, L503.6550 #### [facility] [address] [place], [place], [address] IRON+IRON BINDING Collected: 08/29/2018 Status: F Source: [place] 1:18 PM [facility] REPOSITORY Order Comment: Reason for Laboratory Test .PATIENT TO RETURN FOR LASTING LIPID PROFILE. SARA ZARATE ORDERED: CMP, LIPID, TSH, VITD DR KHAN ORDERED: IBC,SUSANA,CBCD,XTRAS Comments: SARA ZARATE ORDERED TYPE CODE TESTS RESULT OUT OF RANGE REFERENCE UNITS LAB L503.6075 250-450 ug/dL TIBC Normal 311 LAB L503.6150 50-170 ug/dL IRON Normal 51 LAB L503.6250 15.0-55.0 % IRON Normal SATURATION 16.4 Performed By: #### L500.4050, L501.9520, L503.6030, L503.6550 #### [facility] [address] [place], [address] FERRITIN Collected: 08/29/2018 Status: F Source: [place] 1:18 PM [facility] REPOSITORY Order Comment: Reason for Laboratory Test .PATIENT TO RETURN FOR LASTING LIPID PROFILE. SARA ZARATE ORDERED: CMP, LIPID, TSH, VITD DR KHAN ORDERED: IBC,SUSANA,CBCD,XTRAS Comments: SARA ZARATE ORDERED TYPE CODE TESTS RESULT OUT OF RANGE REFERENCE UNITS LAB L503.6550 8-252 ng/mL Normal FERRITIN 108 Performed By: #### L500.4050, L501.9520, L503.6030, L503.6550 #### [facility] [address] [place], [address] QC ANALYST OFFICE VISIT Observed: 08/17/2018 Status: F Source: [place] RE[place] 8:24 AM [facility] REPOSITORY [facility] [address] [place] [address] OFFICE VISIT Date of Service: 06/22/18 MR#: [id number] Acct: [id number] Name: GABBI ROLLE Alexandro Rep #: [id number] : 1945 Provider: BROOK Maloney Age/Sex: 73/F Location[place] [facility] Status: Signed Intake Vital Signs06/22/18 Height 5 ft 7 in 06/22/18 Weight: 312 lb 8 oz 06/22/18 Body Mass Index (BMI) 48.9 06/22/18 Temperature 98.0 F Intake Visit Reasons: SINUS INFECTION Chief Complaint: Sinus Infection Office Correspondent Required: No Is patient in pain?: No Allergies No Known Allergies Allergy (Verified 07/31/18 14:08) Medications Ascorbic Acid [Vitamin C] 1,000 mg PO BID 11/18/17 [History Confirmed 07/31/18] Calcium Citrate 500 mg PO BID 11/18/17 [History Confirmed 07/31/18] Cholecalciferol (Vitamin D3) [Vitamin D3] 2,000 unit PO BID 11/18/17 [History Confirmed 07/31/18] Magnesium Oxide [Magnesium] 400 mg PO DAILY 11/18/17 [History Confirmed 07/31/18] Metoprolol Tartrate [Lopressor (beta long)] 100 mg PO BID 11/18/17 [History Confirmed 07/31/18] Multivitamin [Daily Multiple Vitamin] 1 ea PO DAILY 11/18/17 [History Confirmed 07/31/18] Pravastatin Sodium 80 mg PO QHS 11/18/17 [History Confirmed 07/31/18] Ropinirole HCl [Requip] 0.25 mg PO QHS 11/18/17 [History Confirmed 07/31/18] Sildenafil Citrate [Revatio] 20 mg PO TID 11/18/17 [History Confirmed 07/31/18] Ubidecarenone [Coenzyme Q-10] 100 mg PO DAILY 11/18/17 [History Confirmed 07/31/18] hydrALAZINE [Apresoline] 25 mg PO BID 11/18/17 [History Confirmed 07/31/18] Ipratropium/Albuterol Sulfate [Combivent Respimat Inhal [place]] 2 puff IH Q4H PRN PRN 01/03/18 [History Confirmed 07/31/18] Furosemide [Lasix] 40 mg PO BID 01/15/18 [History Confirmed 07/31/18] Potassium Chloride [K-Dur] 40 meq PO DAILY #60 tab 01/27/18 [Rx Confirmed 07/31/18] pantoprazole 40 mg tablet,delayed release 40 mg PO BID 02/13/18 [History Confirmed 07/31/18] Budesonide/Formoterol Fumarate [Symbicort 160-4.5 Mcg Inhaler] 2 puff IH BID 02/23/18 [History Confirmed 07/31/18] febuxostat 80 mg tablet 80 mg PO PRN PRN 04/29/18 [History Confirmed 07/31/18] Is last menstrual period known: No Post menopausal: No Patient : No : No PFSH Medical History Atherosclerotic heart disease of [place] coro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 pectoris (Chronic) Chronic [...] you feel safe at home: Yes HPI SINUS INFECTION: Details: GABBI ROLLE is a 73 year old who presents for Coding Level of Care Code Off vis,est,level 4 08/17/18 9264 <Electronically signed by Chance DOE> Date Chance DOE Cosigner Signature: Date (if applicable) CC: SCREENING MAMM (CAD), Observed: 08/05/2018 Status: F Source: [place] 7:19 AM [facility] REPOSITORY [facility] [address] [place] [address] SCREENING MAMM (CAD), BILAT MR#: [id number] Acct: [id number] Name: GABBI ROLLE Rep #: [id number] : 1945 F 73 From: Irvin Edwards MD PCP: Sara Zarate NP Status: REG CLI Study: SCREENING MAMM (CAD), BILAT Date of Exam: 08/05/18 Exam# [id number] Ordering Dr: Sara Zarate OCCUPATIONAL HYGIENIST-C MAMMOGRAPHY - BILATERAL SCREENING REASON FOR EXAM: Female, 73 years old. Routine annual screening examination. PERTINENT HISTORY: Non-contributory. TECHNIQUE: Digital bilateral breast kole (3D mammographic acquisition) in the CC and MLO projections. 2-D mediolateral oblique (MLO) and craniocaudad (CC) views of both breasts were obtained. CAD: Full Field Digital Mammography with Computer Added Detection was performed. COMPARISON: Comparison is made with prior study dated July 23, 2017 and July 27, 2016. FINDINGS: Breast Composition: There are scattered areas of fibroglandular density. There are no dominant masses or suspicious calcifications. Stable well-defined nodular density in the upper lateral portion of the right breast. Prior ultrasound demonstrated to be 2 small lymph nodes. No other significant abnormalities are identified. There has been no significant change since the prior study. BI/SCREENING MAMM (CAD), BILAT IMPRESSION: Stable bilateral screening mammogram. Yearly follow-up mammogram recommended. (A) ASSESSMENT CATEGORY: BIRADS Category 2: Benign. A letter regarding these results will be sent to the patient by the facility within 30 days. Approximately 10% of breast cancers are not detected by mammography. A normal mammogram should not delay biopsy of a clinically suspicious abnormality. [id number] Electronically Signed: Irvin Edwards MD at 8:51 EST Tel [phone], Service support , CC: Sara Zarate NP Propeller Mechanic: Signed ONCOLOGY VISIT REPORT Observed: 07/31/2018 Status: F Source: [place] 2:30 PM [facility] REPOSITORY [facility] [place] [address] OFFICE VISIT Date of Service: 07/31/181426 MR#: [id number] Acct: [id number] Name: GABBI ROLLE Rep #: [id number] : 1945 From: Halley Khan MD Age/Sex: 73/F Location: [facility] Status: Signed - Problem List (1) Anemia Status: Chronic Qualifiers: Anemia type: unspecified type Qualified Code(s): D64.9 - Anemia, unspecified (2) Iron deficiency [...] - Date of Service Date of Service:: 07/31/18 - Chief Complaint Fatigue, chronic anemia - History of Present Illness Patient is a 72-year-old female with a past medical history notable for morbid obesity diabetes chronic renal failure hypertension chronic atrial fibrillation on long-term anticoagulation (had to be held in 2018) and chronic and episodic acute GI blood loss (GI nuclear scan January 2018 reported:2 separate foci of active extravasation (active bleeding) of radiotracer located in the stomach and in the upper ascending colon.) She had been on oral iron supplement averaging 1-3 [...] and was urgently transferred to [facility] where she underwent a nuclear medicine GI blood loss imaging followed by angiography and embolization of a bleeding artery. - Past Medical/Social History Past Medical History Past Medical History: Anemia,Bleeding disorder,Blood transfusion, Diabetes mellitus,Diverticulitis,Edema,GI bleed, Heart disease,Hyperlipidemia,Hypertension,Liver disease,Obesity,Osteopenia,Pneumonia, Postmenopausal,Vitamin D deficiency,Fatigue Other Past Medical History: PULMONARY HYPERTENTION UTI (SEPTIC) GIB Past Surgical History Surgical: Appendectomy,Hysterectomy Other Surgical History: RIGHT FOOT SURGERY 1985 Family History Paternal Past Medical History: Heart disease Maternal Past Medical History: Unknown Maternal History of Cancer: Uterine cancer Social History Social History: No changes Smoking Status Never smoker Review of Systems Constitutional:: Reports: Weakness, Fatigue - Last, this is the best I felt in the past 2 years, - - Activity is limited by arthritic complaints. Denies: Fever, Sweats, Weight loss, Appetite change, Chills Cardiovascular:: Reports: Dyspnea on exertion, Peripheral edema - Chronic unchanged. Denies: Chest pain, Palpitations, Orthopnea, PND, Shortness of breath Respiratory: Reports: Shortness of breath upon exertion. Denies: Cough, Hemoptysis, Shortness of Breath, Wheezing Gastrointestinal:: Denies: Abdominal pain, Nausea, Vomiting, Diarrhea, Constipation, Hematochezia Genitourinary: Denies: Dysuria, Hematuria, 15, Flank pain Musculoskeletal:: Reports: Arthritis, Back pain - Neck unchanged, Arthralgia. Denies: Myalgia Skin: Denies: Rash, Skin Changes, Wounds Neurological:: Denies: Headache, Dizziness, Visual changes, Tinnitus, Hearing loss Psychiatric: Denies: Anxiety, Depression, Homicidal Ideations, Suicidal Ideations Vital Signs Height 5 ft 7 in Weight: 141.702 kg Weight in Pounds 312.4 lbs Pulse Ox 98 - Physical Exam General: Alert, Oriented x3, No apparent distress, - - Morbidly obese, ECOG 2 HEENT: Atraumatic, PERRLA, EOMI, Normocephalic Oropharynx:: Dry mucosa Neck:: Supple, Trachea midline. Negative for: JVD, bilateral Cardiac:: Normal S1, Normal S2, Irregular rate, Murmur Lungs: Clear to auscultation, Excusion symmetrical. Negative for: Rhonchi, Wheezes Abdomen:: Soft, Non-tender, Non-distended Extremities:: Edema - Chronic indurated nonpitting edema. Negative for: Cyanosis Neurological: Neuro grossly intact Skin:: Negative for: Lesions, Rash, Petechiae, Ecchymosis Psychiatric:: Appropriate affect, Euthymic Lymphatics:: Negative for: Cervical lymphadenopathy, Supraclavicular lymphadenopathy Laboratory Data: Laboratory Tests RBC Hgb Hct [...] L Hct 18.8 L Iron Saturation 26.7 Ferritin 109 RBC Hgb 6.4 L 8.5 L Hct 21.3 L 28.7 L Iron Saturation 13.0 L Ferritin 60 RBC Hgb 8.2 L 8.8 L Hct 27.6 L 30.3 L Iron Saturation 12.7 L Ferritin 54 RBC Hgb Hct 30.9 L Iron Saturation 31.9 11.8 L Ferritin 135 44 RBC Hgb 9.7 L Hct 29.7 L 32.2 L Iron Saturation 13.4 L Ferritin 55 RBC Hgb 10.9 L Hct 35.6 L Iron Saturation 14.1 L 16.9 Ferritin 66 73 Assessment and Plan 73-year-old female with chronic recurring anemia most consistent with multiple factors includin. Chronic recurrent iron deficiency anemia due to chronic and acute episodes of GI blood loss Despite oral iron supplementation (half-way), Patient was transfused with packed red cells [...] on top of colonic pathology . Anticoagulation discontinued 2017 Patient was seen was her impression and plan discussed. Medications: Prescriptions This Visit Medication Instructions Recorded Ipratropium/Albuterol Sulfate 2 puff IH Q4H PRN PRN 01/03/18 [Combivent Respimat Inhal [place]] Furosemide [Lasix] 40 mg PO BID 01/15/18 Primary Care Provider: Sara Zarate Referring Provider: Halley Khan MD 07/31/18 0040 <Electronically signed by Halley Khan MD> Date Halley Khan MD Cosigner Signature: Date (if applicable) CC: CBC W/DIFF, AUTOMATED Collected: 07/24/2018 Status: F Source: [place] 1:55 PM [facility] REPOSITORY Order Comment: Reason for Laboratory Test . TYPE CODE TESTS RESULT OUT OF RANGE REFERENCE UNITS LAB L100.1000 4.4-11.0 K/mm3 Normal WBC 6.3 LAB L100.1200 4.2-5.4 M/mm3 Low RBC 3.79 LAB L100.1300 12.0-15.0 g/dl Low HGB 10.9 LAB L100.1400 37-47 % Low HCT 35.6 LAB L100.1500 81-99 fL Normal MCV 93.9 LAB L100.1600 27.0-32.0 pg Normal MCH 28.8 LAB L100.1700 32-36 g/gl Low MCHC 30.6 LAB L100.1810 11.6-14.6 % High RDW CV 16.4 LAB L100.1820 35.1-43.9 fl High RDW SD 56.6 LAB L100.1900 150-450 K/mm3 Low PLT 146 LAB L100.2000 6.2-12.0 fl High MPV 12.6 LAB L100.2100 47-70 % High NEUT% 72.8 LAB L100.2200 19-41 % Normal LY% 21.2 LAB L100.2300 0-10 % Normal MONO% 3.3 LAB L100.2400 0-5 % Normal EO% 2.4 LAB L100.2500 0-1 % Normal BASO% 0.3 LAB L100.2550 0.0-0.9 % Normal IM GRAN % 0.000 Result Comment: IG% - Immature Granulocytes (promyelocytes, myelocytes and metamyelocytes) > 1% indicates that a LEFT SHIFT is Present. LAB L100.2620 2.0-7.7 X10 3/uL Normal Absolute Neut 4.6 LAB L100.2720 0.83-4.51 X10 3/ul Normal Absolute Lymph 1.33 Performed By: #### L100.0100 #### [facility] [address] [place], [place], [address] IRON+IRON BINDING Collected: 07/24/2018 Status: F Source: [facility] 1:55 PM [facility] REPOSITORY Order Comment: Reason for Laboratory Test . TYPE CODE TESTS RESULT OUT OF RANGE REFERENCE UNITS LAB L503.6075 250-450 ug/dL TIBC Normal 331 LAB L503.6150 50-170 ug/dL IRON Normal 56 LAB L503.6250 15.0-55.0 % IRON Normal SATURATION 16.9 Performed By: #### L503.6030, L503.6550 #### [facility] [address] [place], [address] FERRITIN Collected: 07/24/2018 Status: F Source: [place] 1:55 PM [facility] REPOSITORY Order Comment: Reason for Laboratory Test . TYPE CODE TESTS RESULT OUT OF RANGE REFERENCE UNITS LAB L503.6550 8-252 ng/mL Normal FERRITIN 71 Performed By: #### L503.6030, L503.6550 #### [facility] [address] [place], [address] PROGRESS Observed: 07/08/2018 Status: COMPLETED Source: [place] 3:33 PM [facility] REPOSITORY HNO ID: [id number] Author: Kemi Lagunas Service: (none) Author Type: Nurse Practitioner Type: Progress Notes Filed: 07/08/2018 3:34 PM Note Text: MULTI DISCIPLINARY HIGH RISK AVR CARDIAC TEAM Members present: Dr. Santiago, Dr. Zelaya, Dr. Hansen, Dr. Maravilla, Dr. Mendoza, Dr. Francis, , Dr. Greene, Dr. Miranda, Dr. Chapman, Allan MONTOYA, Edgardo Lagunas CNP and Blaze Dillon RN Presenting Physician:Dr. Maravilla PATIENT NAME: Gabbi Rolle DATE: July 07, 2018 Outcome: Gabbi Rolle 's history and imaging were reviewed by the physicians in attendance. MRI reviewed. Medium risk for surgery The collaborative recommendation would be TF-TAVR S3. Date of procedure is 09/15/2018. Our office will contact the patient in the next few weeks to schedule a TAVR procedure date and to review pre procedure instructions. TAVR procedure scheduling will be handled by Our Office (Intervention). Kemi Lagunas APRN.[facility] Observed: 07/08/2018 Status: COMPLETED Source: [place] 12:00 AM [facility] REPOSITORY Patient Update (CATHMN) GABBI ROLLE ([id number]) 1945 F Date Time Provider Department 07/08/18 KEMI LAGUNAS During your visit today, we recorded the following information about you: Kemi Lagunas APRN.CNP 07/08/2018 3:34 PM Signed MULTI DISCIPLINARY HIGH RISK AVR CARDIAC TEAM Members present: Dr. Santiago, Dr. Zelaya, Dr. Hansen, Dr. Maravilla, Dr. Mendoza, Dr. Francis, , Dr. Greene, Dr. Miranda, Dr. Chapman, Allan MONTOYA, Edgardo Lagunas CNP and Blaze Dillon RN Presenting Physician:Dr. Maravilla PATIENT NAME: Gabbi Rolle DATE: July 07, 2018 Outcome: Gabbi Rolle 's history and imaging were reviewed by the physicians in attendance. MRI reviewed. Medium risk for surgery The collaborative recommendation would be TF-TAVR S3. Date of procedure is 09/15/2018. Our office will contact the patient in the next few weeks to schedule a TAVR procedure date and to review pre procedure instructions. TAVR procedure scheduling will be handled by Our Office (Intervention). Kemi Lagunas APRN.CNP Allergies As of Date: 07/08/2018 (No Known Allergies) Date Reviewed: 07/01/2018 Reviewed by: Clarice Buchanan) JOYCE Rodríguez - Fully Assessed Reason for Visit: TAVR meeting update [Other] Prescriptions as of 07/08/2018 Sig: BUDESONIDE-FORMOTEROL HFA 160* Inhale 2 Puffs as instructed * FUROSEMIDE 40 MG TABLET Take 40 mg by mouth once greg* POTASSIUM CHLORIDE ER 10 MEQ * Take 10 mEq by mouth once patrick* PANTOPRAZOLE 40 MG TABLET,DEL* Take 40 mg by mouth once greg* METOPROLOL TARTRATE 100 MG TA* Take 100 mg by mouth twice da* ROPINIROLE 0.25 MG TABLET Take 0.25 mg by mouth once da* PRAVASTATIN 80 MG TABLET Take 80 mg by mouth once greg* HYDRALAZINE 25 MG TABLET Take 25 mg by mouth twice patrick* SILDENAFIL (ANTIHYPERTENSIVE)* Take 1 tablet by mouth three * CHOLECALCIFEROL (VITAMIN D3) * Take 2,000 Units by mouth onc* MAGNESIUM 250 MG TABLET Take 250 mg by mouth once patrick* CALCIUM CITRATE ORAL Take by mouth once daily. MULTIVITAMIN ORAL Take by mouth once daily. COENZYME Q10 10 MG CAPSULE Take by mouth twice daily. AMOXICILLIN 875 MG TABLET Take 1 tablet by mouth once d* Problem List As Of Date: 07/08/2018 (None) Encounter Status:Closed by KEMI LAGUNAS CNP on 07/08/18 ONCOLOGY VISIT REPORT Observed: 07/03/2018 Status: F Source: [place] 2:51 PM [facility] REPOSITORY [facility] [address] [place] [address] [place] [address] OFFICE VISIT Date of Service: 07/03/18 1424 MR#: [id number] Acct: [id number] Name: GABBI ROLLE Rep #: [id number] : 1945 From: Halley Khan MD Age/Sex: 73/F Location: OMD Status: Signed - Problem List (1) Anemia Status: Chronic Qualifiers: Anemia type: unspecified type Qualified Code(s): D64.9 - Anemia, unspecified (2) Iron deficiency [...] held in 2018) and chronic and episodic acute GI blood loss (GI nuclear scan January 2018 reported:2 separate foci of active extravasation (active bleeding) of radiotracer located in the stomach and in the upper ascending colon.) She had been on oral iron supplement averaging 1-3 [...] and was urgently transferred to [facility] where she underwent a nuclear medicine GI blood loss imaging followed by angiography and embolization of a bleeding artery. - Past Medical/Social History Past Medical History Past Medical History: Anemia,Bleeding disorder,Blood transfusion, Diabetes mellitus,Diverticulitis,Edema,GI bleed, Heart disease,Hyperlipidemia,Hypertension,Liver disease,Obesity,Osteopenia,Pneumonia, Postmenopausal,Vitamin D deficiency,Fatigue Other Past Medical History: PULMONARY HYPERTENTION UTI (SEPTIC) GIB Past Surgical History Surgical: Appendectomy,Hysterectomy Other Surgical [...] GI blood loss Despite oral iron supplementation (half-way), Patient was transfused with packed red cells [...] Q4H PRN PRN 01/03/18 [Combivent Respimat Inhal [place]] Furosemide [Lasix] 40 mg PO BID 01/15/18 Primary Care Provider: Sara Zarate Referring Provider: Halley Khan MD 07/03/18 [id number] <Electronically signed by Halley Khan MD> Date Halley Khan MD Cosigner Signature: Date (if applicable) CC: PROGRESS Observed: 07/02/2018 Status: COMPLETED Source: [place] 10:28 AM [facility] REPOSITORY HNO ID: [id number] Author: Jerry Francis Service: (none) Author Type: Physician Type: Progress Notes Filed: 07/02/2018 10:31 AM Note Text: CHART COPY DO NOT DISCARD Patient Type: Consult Visit to determine Surgery: Yes PCP: Sara Zarate, HEAD KILN OPERATOR [address] [facility] [address] [place] [address] Referring Physician:: Jeremias Maravilla [facility] [address] [facility] [address] HPI: Ms. Gabbi Rolle is a 73 year old female seen in consultation at the request of Jeremias Maravilla for opinion regarding treatment options for Aortic Stenosis. Comorbidities include, chronic afib, morbid obesity (BMI 49), CKD (Cre 2.6) pulm HTN. She is currently symptomatic and complains of shortness of breath The Echocardiogram reveals aortic stenosis, 2-3+TR, 1-2MR. Based on my evaluation she is a medium risk for open heart surgery and AVR. Impression: Aortic Stenosis Plan:would recommend TAVR I spent 30 minutes in this visit, with more than 50% of the time devoted to patient counseling. These findings will be communicated back to the requesting physician via electronic medical record Jerry Francis MD PROGRESS Observed: 07/01/2018 Status: COMPLETED Source: [place] 4:32 PM [facility] REPOSITORY HNO ID: [id number] Author: Hermelinda F[address] Service: (none) Author Type: (none) Type: Progress Notes Filed: 07/01/2018 4:33 PM Note Text: Radiology Service Progress Note PATIENT NAME: Gabbi Rolle DATE OF SERVICE: July 01, 2018 TIME: 4:33 PM PATIENT IDENTITY VERIFICATION COMPLETED USING TWO (2) METHODS: Patient confirmed name verbally and ID Band . PATIENT GENDER DATA: Female. status: : No status: NO. PATIENT RELEVANT IMPLANT DATA REVIEWED: Yes RADIOLOGY DEPARTMENT: MR; Exam(s) Completed: Cardiac: Cardiac PERIPHERAL IV DATA: Not applicable SIGNED BY: Maxwell Doran MRI July 01, 2018 4:33 PM MRI CARDIAC VELOCITY Observed: 07/01/2018 Status: F Source: [place] FLOW MAP 4:30 PM [facility] REPOSITORY * * *Final Report* * * DATE OF EXAM: Jul 01 2018 4:30PM [id number] - MRI CARDIAC VELOCITY FLOW MAP / PROCEDURE REASON: Encounter for preprocedural cardiovascular examination * * * * Physician Interpretation * * * * Cardiovascular MRI - Limited Thorax: 07/01/2018 4:30 PM Comparison: CT chest abdomen and pelvis dated 06/27/2018 Clinical history: 73 year old Female with symptomatically aortic stenosis, atrial fibrillation, chronic kidney disease, who is being evaluated for percutaneous versus surgical treatment options. Indication: This study is performed to assess anatomy of the aortic annulus/root, as well as to quantitate left ventricular and valvular function. Technique: Mat Ingenia 3.0 [place] MRI scanner. * Turbo spin echo and gradient echo imaging for anatomic definition. * Dynamic cine imaging (SSFP) for cardiac chamber, wall-motion, and valvular analysis. * Intravenous gadolinium contrast was not utilized due to pre-existing chronic kidney disease and low GFR. * For more optimal morphologic evaluation, off-line advanced post-processing of the 3-D data was performed (using multiplanar, [id number], and/or volume-rendered reconstructions). Potential study limitations: None RESULT: The chest wall is unremarkable ; the mediastinum appears normal. No significant adenopathy is identified. This study was not optimized to assess the lungs however, limited imaging reveals no gross abnormalities. The pericardium is unremarkable. The pulmonary arteries are dilated (main PA 3.3 cm), as can be seen in pulmonary hypertension. VASCULAR: Dedicated imaging of the aortic annulus/root demonstrates: Trifleaflet aortic valve with significant leaflet thickening. Moderate visualized aortic regurgitation that is underestimated by flow quantification and therefore not reported with a peak velocity of 3.7 m/s (measured at the aortic valve level). Severely limited excursion of the valve cusps with significant flow acceleration through the valve. Cusp size and root anatomy are symmetric (the sinotubular junction is preserved). Aortic annulus: 3.0 cm x 2.1 cm. Aortic annulus cross-sectional area: 5.1 cm2. Aortic root: 3.5 cm. Sinotubular junction: 3.0 cm Annulus to left main: 12 mm Annulus to right coronary artery: 16 mm Ascending aorta: visualized portions are normal in course and caliber. Aortic arch: normal caliber Arch branch vessels: normal. All of the arch branch vessels appear widely patent in their proximal portions. Descending aorta: tortuous, visualized portions are normal in caliber. There is no acute aortic pathology, such as dissection, intramural hematoma, or contained rupture. CARDIAC: The cardiac chambers demonstrate normal atrioventricular and ventriculoarterial concordance, as well as normal systemic and pulmonary venous return. The cardiac chamber sizes are remarkable for severe biatrial enlargement. The IVC and hepatic veins are prominent. Left Ventricle: The left ventricle is normal in size, and has low normal function. There is mild asymmetric left ventricular hypertrophy, involving the the basal anteroseptum (1.3 cm). The remaining left ventricular myocardium is normal in thickness. No discrete regional wall motion abnormalities. Quantitative left ventricular functional values are as follows: EDV = 213 cc (normal 88-168 cc); EDVi = 83 cc/m2 (normal 57-92 cc/m2). ESV = 105 cc (normal 23-60 cc); ESVi = 41 cc/m2 (normal 15-34 cc/m2). Stroke volume = 108 cc (normal 58-114 cc); SVi = 42 cc/m2 (normal 38-63 cc/m2). LVEF = 51 % (normal 55-75%). Cardiac Output = 7.2 l/min.; Cardiac Index = 2.8 l/min/m2. LV mass = 175 gm (normal 72-144 cc); LVMi = 68 gm/m2 (normal 48-77 gm/m2). Right Ventricle: The right ventricle is upper limit of normal in size, and has normal systolic function. There is focal dyskinesis of the mid right ventricular free wall. Quantitative right ventricular functional values are as follows: EDV = 225 cc (normal 84-168 cc); EDVi = 88 cc/m2 (normal 55-92 cc/m2). ESV = 111 cc (normal 17-69 cc); ESVi = 43 cc/m2 (normal 12-38 cc/m2). Stroke volume = 114 cc (normal 57-108 cc); SVi = 45 cc/m2 (normal 36-60 cc/m2). RVEF = 51 % (normal 54-78%). VALVES: There is moderate visualized mitral regurgitation, with a posteriorly directed jet of insufficiency. Unable to accurately quantify mitral regurgitation due to atrial fibrillation. The tricuspid valve appear functionally normal, with at least visualized mild tricuspid regurgitation. Limited imaging through the upper abdomen reveals no abnormalities of the visualized organs. IMPRESSION: 1. Trileaflet aortic valve with significant leaflet thickening, severely restricted opening, and moderate visualized central aortic insufficiency. - Aortic annulus: 3.0 cm x 2.1 cm. - Aortic annulus cross-sectional area: 5.1 cm2. - Aortic root: 3.5 cm. 2. The visualized thoracic aorta appears normal in course and caliber. There is no acute aortic pathology. 3. The left ventricle is normal in size (LVEDVi 83 cc/m2), and has low normal systolic function (LVEF 51%). 4. The right ventricle is upper limit of normal in size (RVEDVi 88 cc/m2), and has normal systolic function (RVEF 51%). There is focal dyskinesis of the mid right ventricular free wall. 5. There is moderate visualized mitral regurgitation, with a posteriorly directed jet of insufficiency. 6. Severe biatrial enlargement. Propeller Mechanic: PSCB Transcribe Date/Time: Jul 01 2018 4:31P Dictated by : BRENT ROSENBERG MD This examination was interpreted and the report reviewed and electronically signed by: NATALIA MENDOSA MD on Jul 01 2018 5:49PM EST [id number] MRI CARD MORPH FUNC Observed: 07/01/2018 Status: F Source: [place] REJI IVCON 4:30 PM [facility] * * *Final Report* * * DATE OF EXAM: Jul 01 2018 4:30PM JQM [id number] - MRI CARD MORPH FUNC WO IVCON / PROCEDURE REASON: Encounter for preprocedural cardiovascular examination * * * * Physician Interpretation * * * * Cardiovascular MRI - Limited Thorax: 07/01/2018 4:30 PM Comparison: CT chest abdomen and pelvis dated 06/27/2018 Clinical history: 73 year old Female with symptomatically aortic stenosis, atrial fibrillation, chronic kidney disease, who is being evaluated for percutaneous versus surgical treatment options. Indication: This study is performed to assess anatomy of the aortic annulus/root, as well as to quantitate left ventricular and valvular function. Technique: Mat Ingenia 3.0 [place] MRI scanner. * Turbo spin echo and gradient echo imaging for anatomic definition. * Dynamic cine imaging (SSFP) for cardiac chamber, wall-motion, and valvular analysis. * Intravenous gadolinium contrast was not utilized due to pre-existing chronic kidney disease and low GFR. * For more optimal morphologic evaluation, off-line advanced post-processing of the 3-D data was performed (using multiplanar, [id number], and/or volume-rendered reconstructions). Potential study limitations: None RESULT: The chest wall is unremarkable ; the mediastinum appears normal. No significant adenopathy is identified. This study was not optimized to assess the lungs however, limited imaging reveals no gross abnormalities. The pericardium is unremarkable. The pulmonary arteries are dilated (main PA 3.3 cm), as can be seen in pulmonary hypertension. VASCULAR: Dedicated imaging of the aortic annulus/root demonstrates: Trifleaflet aortic valve with significant leaflet thickening. Moderate visualized aortic regurgitation that is underestimated by flow quantification and therefore not reported with a peak velocity of 3.7 m/s (measured at the aortic valve level). Severely limited excursion of the valve cusps with significant flow acceleration through the valve. Cusp size and root anatomy are symmetric (the sinotubular junction is preserved). Aortic annulus: 3.0 cm x 2.1 cm. Aortic annulus cross-sectional area: 5.1 cm2. Aortic root: 3.5 cm. Sinotubular junction: 3.0 cm Annulus to left main: 12 mm Annulus to right coronary artery: 16 mm Ascending aorta: visualized portions are normal in course and caliber. Aortic arch: normal caliber Arch branch vessels: normal. All of the arch branch vessels appear widely patent in their proximal portions. Descending aorta: tortuous, visualized portions are normal in caliber. There is no acute aortic pathology, such as dissection, intramural hematoma, or contained rupture. CARDIAC: The cardiac chambers demonstrate normal atrioventricular and ventriculoarterial concordance, as well as normal systemic and pulmonary venous return. The cardiac chamber sizes are remarkable for severe biatrial enlargement. The IVC and hepatic veins are prominent. Left Ventricle: The left ventricle is normal in size, and has low normal function. There is mild asymmetric left ventricular hypertrophy, involving the the basal anteroseptum (1.3 cm). The remaining left ventricular myocardium is normal in thickness. No discrete regional wall motion abnormalities. Quantitative left ventricular functional values are as follows: EDV = 213 cc (normal 88-168 cc); EDVi = 83 cc/m2 (normal 57-92 cc/m2). ESV = 105 cc (normal 23-60 cc); ESVi = 41 cc/m2 (normal 15-34 cc/m2). Stroke volume = 108 cc (normal 58-114 cc); SVi = 42 cc/m2 (normal 38-63 cc/m2). LVEF = 51 % (normal 55-75%). Cardiac Output = 7.2 l/min.; Cardiac Index = 2.8 l/min/m2. LV mass = 175 gm (normal 72-144 cc); LVMi = 68 gm/m2 (normal 48-77 gm/m2). Right Ventricle: The right ventricle is upper limit of normal in size, and has normal systolic function. There is focal dyskinesis of the mid right ventricular free wall. Quantitative right ventricular functional values are as follows: EDV = 225 cc (normal 84-168 cc); EDVi = 88 cc/m2 (normal 55-92 cc/m2). ESV = 111 cc (normal 17-69 cc); ESVi = 43 cc/m2 (normal 12-38 cc/m2). Stroke volume = 114 cc (normal 57-108 cc); SVi = 45 cc/m2 (normal 36-60 cc/m2). RVEF = 51 % (normal 54-78%). VALVES: There is moderate visualized mitral regurgitation, with a posteriorly directed jet of insufficiency. Unable to accurately quantify mitral regurgitation due to atrial fibrillation. The tricuspid valve appear functionally normal, with at least visualized mild tricuspid regurgitation. Limited imaging through the upper abdomen reveals no abnormalities of the visualized organs. IMPRESSION: 1. Trileaflet aortic valve with significant leaflet thickening, severely restricted opening, and moderate visualized central aortic insufficiency. - Aortic annulus: 3.0 cm x 2.1 cm. - Aortic annulus cross-sectional area: 5.1 cm2. - Aortic root: 3.5 cm. 2. The visualized thoracic aorta appears normal in course and caliber. There is no acute aortic pathology. 3. The left ventricle is normal in size (LVEDVi 83 cc/m2), and has low normal systolic function (LVEF 51%). 4. The right ventricle is upper limit of normal in size (RVEDVi 88 cc/m2), and has normal systolic function (RVEF 51%). There is focal dyskinesis of the mid right ventricular free wall. 5. There is moderate visualized mitral regurgitation, with a posteriorly directed jet of insufficiency. 6. Severe biatrial enlargement. Propeller Mechanic: ANT Transcribe Date/Time: Jul 01 2018 4:31P Dictated by : BRENT ROSENBERG MD This examination was interpreted and the report reviewed and electronically signed by: NATALIA MENDOSA MD on Jul 01 2018 5:49PM EST [id number] MRA CHEST CARDVASC WO Observed: 07/01/2018 Status: F Source: [place] IVCON 4:30 PM [facility] REPOSITORY * * *Final Report* * * DATE OF EXAM: Jul 01 2018 4:30PM JQM [id number] - MRA CHEST CARDVAS WO IVCON / PROCEDURE REASON: Encounter for preprocedural cardiovascular examination * * * * Physician Interpretation * * * * Cardiovascular MRI - Limited Thorax: 07/01/2018 4:30 PM Comparison: CT chest abdomen and pelvis dated 06/27/2018 Clinical history: 73 year old Female with symptomatically aortic stenosis, atrial fibrillation, chronic kidney disease, who is being evaluated for percutaneous versus surgical treatment options. Indication: This study is performed to assess anatomy of the aortic annulus/root, as well as to quantitate left ventricular and valvular function. Technique: Mat Ingenia 3.0 [place] MRI scanner. * Turbo spin echo and gradient echo imaging for anatomic definition. * Dynamic cine imaging (SSFP) for cardiac chamber, wall-motion, and valvular analysis. * Intravenous gadolinium contrast was not utilized due to pre-existing chronic kidney disease and low GFR. * For more optimal morphologic evaluation, off-line advanced post-processing of the 3-D data was performed (using multiplanar, [id number], and/or volume-rendered reconstructions). Potential study limitations: None RESULT: The chest wall is unremarkable ; the mediastinum appears normal. No significant adenopathy is identified. This study was not optimized to assess the lungs however, limited imaging reveals no gross abnormalities. The pericardium is unremarkable. The pulmonary arteries are dilated (main PA 3.3 cm), as can be seen in pulmonary hypertension. VASCULAR: Dedicated imaging of the aortic annulus/root demonstrates: Trifleaflet aortic valve with significant leaflet thickening. Moderate visualized aortic regurgitation that is underestimated by flow quantification and therefore not reported with a peak velocity of 3.7 m/s (measured at the aortic valve level). Severely limited excursion of the valve cusps with significant flow acceleration through the valve. Cusp size and root anatomy are symmetric (the sinotubular junction is preserved). Aortic annulus: 3.0 cm x 2.1 cm. Aortic annulus cross-sectional area: 5.1 cm2. Aortic root: 3.5 cm. Sinotubular junction: 3.0 cm Annulus to left main: 12 mm Annulus to right coronary artery: 16 mm Ascending aorta: visualized portions are normal in course and caliber. Aortic arch: normal caliber Arch branch vessels: normal. All of the arch branch vessels appear widely patent in their proximal portions. Descending aorta: tortuous, visualized portions are normal in caliber. There is no acute aortic pathology, such as dissection, intramural hematoma, or contained rupture. CARDIAC: The cardiac chambers demonstrate normal atrioventricular and ventriculoarterial concordance, as well as normal systemic and pulmonary venous return. The cardiac chamber sizes are remarkable for severe biatrial enlargement. The IVC and hepatic veins are prominent. Left Ventricle: The left ventricle is normal in size, and has low normal function. There is mild asymmetric left ventricular hypertrophy, involving the the basal anteroseptum (1.3 cm). The remaining left ventricular myocardium is normal in thickness. No discrete regional wall motion abnormalities. Quantitative left ventricular functional values are as follows: EDV = 213 cc (normal 88-168 cc); EDVi = 83 cc/m2 (normal 57-92 cc/m2). ESV = 105 cc (normal 23-60 cc); ESVi = 41 cc/m2 (normal 15-34 cc/m2). Stroke volume = 108 cc (normal 58-114 cc); SVi = 42 cc/m2 (normal 38-63 cc/m2). LVEF = 51 % (normal 55-75%). Cardiac Output = 7.2 l/min.; Cardiac Index = 2.8 l/min/m2. LV mass = 175 gm (normal 72-144 cc); LVMi = 68 gm/m2 (normal 48-77 gm/m2). Right Ventricle: The right ventricle is upper limit of normal in size, and has normal systolic function. There is focal dyskinesis of the mid right ventricular free wall. Quantitative right ventricular functional values are as follows: EDV = 225 cc (normal 84-168 cc); EDVi = 88 cc/m2 (normal 55-92 cc/m2). ESV = 111 cc (normal 17-69 cc); ESVi = 43 cc/m2 (normal 12-38 cc/m2). Stroke volume = 114 cc (normal 57-108 cc); SVi = 45 cc/m2 (normal 36-60 cc/m2). RVEF = 51 % (normal 54-78%). VALVES: There is moderate visualized mitral regurgitation, with a posteriorly directed jet of insufficiency. Unable to accurately quantify mitral regurgitation due to atrial fibrillation. The tricuspid valve appear functionally normal, with at least visualized mild tricuspid regurgitation. Limited imaging through the upper abdomen reveals no abnormalities of the visualized organs. IMPRESSION: 1. Trileaflet aortic valve with significant leaflet thickening, severely restricted opening, and moderate visualized central aortic insufficiency. - Aortic annulus: 3.0 cm x 2.1 cm. - Aortic annulus cross-sectional area: 5.1 cm2. - Aortic root: 3.5 cm. 2. The visualized thoracic aorta appears normal in course and caliber. There is no acute aortic pathology. 3. The left ventricle is normal in size (LVEDVi 83 cc/m2), and has low normal systolic function (LVEF 51%). 4. The right ventricle is upper limit of normal in size (RVEDVi 88 cc/m2), and has normal systolic function (RVEF 51%). There is focal dyskinesis of the mid right ventricular free wall. 5. There is moderate visualized mitral regurgitation, with a posteriorly directed jet of insufficiency. 6. Severe biatrial enlargement. Propeller Mechanic: PSCB Transcribe Date/Time: Jul 01 2018 4:31P Dictated by : BRENT ROSENBERG MD This examination was interpreted and the report reviewed and electronically signed by: NATALIA MENDOSA MD on Jul 01 2018 5:49PM EST [id number] CNOV Observed: 07/01/2018 Status: COMPLETED Source: [place] 1:00 PM [facility] REPOSITORY Office Visit (CATHMN) GABBI ROLLE ([id number]) 1945 F Date Time Provider Department 07/01/18 1:00 PM HR AVR [facility]IN[facility] CATHMN During your visit today, we recorded the following information about you: Kemi Lagunas APRN.CNP 07/01/2018 4:24 PM Signed [facility] Department of Cardiovascular Medicine SECTION OF INTERVENTIONAL CARDIOLOGY OUTPATIENT VISIT DATE July 01, 2018 OUTPATIENT VISIT TYPE ESTABLISHED PRIMARY CARE PHYSICIAN: Sara Zarate, HEAD KILN OPERATOR [address] [address] CHIEF COMPLAINT: Patient presents with: TAVR HISTORY OF PRESENT ILLNESS: Ms. Rolle is a 73 year old female who presents today for follow-up visit for Frailty Assessment and to discuss TAVR. She was seen by Dr. Maravilla 06/27/2018. She has PMH of DM, chronic afib, CHF-- on lasix, HLD, HTN, pul HTN, CKD III and recurrent GIB-- hospitalized 5x since spring requiring a total of 19 units of blood and still on IV iron infusions (right medi-port). She is very independent with her ADLs however has been slowing down lately due to TESFAYE. She denies chest pain, palpitations, lightheadedness and syncope. PAST CARDIAC HISTORY: See HPI PAST MEDICAL HISTORY Diagnosis Date - Anemia - CAD (coronary artery disease) - CHF (congestive heart failure) ([facility]) - Chronic a-fib ([facility]) - CKD (chronic kidney disease), stage III ([facility]) - DM (diabetes mellitus) ([facility]) - GI bleed 2017 reccurrent -- hospitalized 5x since spring requiring a total of 19 units of blood and IV iron infusions. - HLD (hyperlipidemia) - HTN (hypertension) - NSTEMI (non-ST elevated myocardial infarction) ([facility]) 2017 - Pulmonary HTN ([facility]) PAST SURGICAL HISTORY Procedure Laterality Date - APPENDECTOMY - FOOT SURGERY HX right - HYSTERECTOMY SOCIAL HISTORY Social History Substance Use Topics - Smoking status: Never Smoker - Smokeless tobacco: Never Used - Alcohol use No FAMILY HISTORY Problem Relation Age of Onset - Cervical Cancer Mother - Diabetes Father - Ischemic Heart Disease Father - Heart Attack Father - other (Polio) Father - Heart Brother valve problem ALLERGIES: ALLERGIES No Known Allergies MEDICATIONS: budesonide-formoterol (SYMBICORT) 160-4.5 mcg/actuation inhaler Inhale 2 Puffs as instructed once daily. furosemide (LASIX) 40 mg tablet Take 40 mg by mouth once daily. potassium chloride (K-TAB) 10 mEq tablet Take 10 mEq by mouth once daily. pantoprazole DR (PROTONIX) 40 mg tablet Take 40 mg by mouth once daily. metoprolol tartrate, short acting, (LOPRESSOR) 100 mg tablet Take 100 mg by mouth twice daily. rOPINIRole (REQUIP) 0.25 mg tablet Take 0.25 mg by mouth once daily. pravastatin (PRAVACHOL) 80 mg tablet Take 80 mg by mouth once daily. hydrALAZINE (APRESOLINE) 25 mg tablet Take 25 mg by mouth twice daily. sildenafil (REVATIO) 20 mg tablet Take 1 tablet by mouth three times daily. cholecalciferol (VITAMIN D-3) 2,000 unit tablet Take 2,000 Units by mouth once daily. Magnesium 250 mg tab Take 250 mg by mouth once daily. CALCIUM CITRATE ORAL Take by mouth once daily. MULTIVITAMIN ORAL Take by mouth once daily. ubidecarenone Q-10 (CO Q-10) 10 mg cap Take by mouth twice daily. amoxicillin (AMOXIL) 875 mg tablet Take 1 tablet by mouth once daily. For 10 days. Started on 06/22/18 CARDIOVASCULAR MEDICINE TESTING: [facility] 2017: -LVEF 65% -RA Assessment: --- PA 107/40 67 --- RV 95/0 11 --- RA 21 -LM: Normal -LAD: mild luminal irregularities less than 30% -LCx: mod luminal irregularities up to 50% -RCA mild luminal irregularities less than 30% ? ? 05.02.2018 Echo Summary -Normal LV size -Mod concentric LV hypertrophy -LV systolic function is normal -EF 55% -Severe (stage III) diastolic dysfunction -Mild-mod eccentric mitral valve insufficiency -Severe pulmonary HTN -Severe -Mild aortic valve insufficiency ? 05.23.2018 MANA Summary -Normal LV size -LV systolic function normal -EF 60% -RA os severely enlarged -Mod focal aortic valve calcification -Mod -Mod reduction in aortic cusp seperation Frailty Index Data Collection Form July 01, 2018 Gabbi Rolle Serum Albumin 4.5 g/dl Collection date/time: 06/27/2018 ADRIAN Activities of Daily Living: Activities Points (1 or 0) Cannon: (1 Point) No supervision, direction or personal assistance Dependence: (0 Points) With supervision,direction,personal assistance or total care Bathing Points: 1 (1Point) Bathes self completely or needs help in bathing only a single part of the body such as the back, genital area or disabled extremity. (0 Points) Needs help with bathing more than one part of the body ,getting in or out of the tub or shower. Requires total bathing. Dressing Points: 1 (1 Point) Get clothes from closet and drawers and puts clothes and outer garments complete with fasteners. May have help tying shoes. (0 Points) Needs help with dressing self or needs to be completely dressed. Toileting Points: 1 (1 Point) Goes to toilet, gets on and off, arranges clothes, cleans genital area without help. (0 Points) Needs help transferring to the toilet, cleaning self or uses bedpan or commode. Transferring Points: 1 (1 Point) Moves in and out of bed or chair unassisted. Mechanical transferring aids are acceptable (0 Points) Need help in moving from bed to chair or requires a complete transfer. Continence Points: 1 (1 Point) Exercise complete self control over urination and defecation. (0 Points) Is partiially or total incontinent of bowel and bladder. Feeding Points: 1 (1 Point ) Gets food from plate into mouth without help. Preparation of food may be done by another person. (0 Points) Needs partial or total help with feeding or requires parenteral feeding. Total Points = 6 15 - Foot Walk: 11 seconds Cutoff off time to walk 15 feet criterion for frailty: Men Women Height < 173 cm > 7 seconds Height < 159 cm > 7 seconds Height > 173 cm > 6 seconds Height > 159 cm > 6 seconds IMPRESSION: Ms. Rolle is a 73 year old female who presents today for follow-up visit for Frailty Assessment and to discuss TAVR. She was seen by Dr. Maravilla 06/27/2018. PLAN AND RECOMMENDATIONS: I have spoken with Mrs. Rolle regarding the evaluation process for HR AVR. I reviewed the commercially available Navarrete Lifesc[employer] valve, including the valve model. I showed the animation of the TF procedure while explaining the procedure. I also reviewed the Sentinnel device. We discussed pre-op planning which includes the need to come 1-2 days prior to surgery to have an updated HANDP, pre-surgical labs and meet with anesthesia. ? ?Hospital stay follow TF-TAVR is generally 2-3 days. Activity restriction is no heavy lifting of more than 10 pounds for 1 week following TAVR and no extensive walking. We also discussed the use of Plavix and ASA post TAVR. ? Dental clearance discussed. I stressed the importance of obtaining this clearance prior to TAVR. Patient has form and will see dentist Dr. Morel locally. ? I have reviewed the following test results: ECHO, CTA and cardiac cath. ? I explained to patient that this is a surgical evaluation as well and that TAVR was commercially approved for patients that are considered high risk or intermediate risk for traditional OHS. I have discussed with patient that once all of the testing has been completed, the results will be reviewed by the HR AVR team and She will be notified of the recommendations. Notification following the team meeting could take up to 2 weeks. ? Scheduling of the TAVR procedure could take up to 6-8 weeks from the time of the team recommendations. We also discussed signs and symptoms of increased shortness of breath and peripheral edema should be reported to the local physician right away and be treated accordingly, If hospitalization is required, then it should be done. We can be notified with this information and all efforts will be made to expedite procedure accordingly. Of note, patient is scheduled for non contrast MRI today to assess her annulus. ? Kemi Lagunas CNP ? I spent 30- minutes in this visit, with more than 50% of the time devoted to patient counseling. ? CONTACT INFORMATION: Kemi Lagunas APRN.CNP 07/01/2018 1:02 PM Signed Please contact Dr. Maravilla Office: [phone] if your symptoms worsen. ? You will be contacted after your case is discussed at the meeting and we will let you know when to come in for the pre-op testing. Referring Provider: JEREMIAS MARAVILLA) [[id number]] Allergies As of Date: 07/01/2018 (No Known Allergies) Date Reviewed: 07/01/2018 Reviewed by: Clarice (Rn) JOYCE Rodríguez - Fully Assessed Reason for Visit: TAVR [Other] Primary Visit Diagnosis:Nonrheumatic aortic valve stenosis [I35.0] Prescriptions as of 07/01/2018 Sig: BUDESONIDE-FORMOTEROL HFA 160* Inhale 2 Puffs as instructed * FUROSEMIDE 40 MG TABLET Take 40 mg by mouth once greg* POTASSIUM CHLORIDE ER 10 MEQ * Take 10 mEq by mouth once patrick* PANTOPRAZOLE 40 MG TABLET,DEL* Take 40 mg by mouth once greg* METOPROLOL TARTRATE 100 MG TA* Take 100 mg by mouth twice da* ROPINIROLE 0.25 MG TABLET Take 0.25 mg by mouth once da* PRAVASTATIN 80 MG TABLET Take 80 mg by mouth once greg* HYDRALAZINE 25 MG TABLET Take 25 mg by mouth twice patrick* SILDENAFIL (ANTIHYPERTENSIVE)* Take 1 tablet by mouth three * CHOLECALCIFEROL (VITAMIN D3) * Take 2,000 Units by mouth onc* MAGNESIUM 250 MG TABLET Take 250 mg by mouth once patrick* CALCIUM CITRATE ORAL Take by mouth once daily. MULTIVITAMIN ORAL Take by mouth once daily. COENZYME Q10 10 MG CAPSULE Take by mouth twice daily. AMOXICILLIN 875 MG TABLET Take 1 tablet by mouth once d* Problem List As Of Date: 07/01/2018 (None) Other instructions from your clinician: Please contact Dr. Maravilla Office: [phone] if your symptoms worsen. ? You will be contacted after your case is discussed at the meeting and we will let you know when to come in for the pre-op testing. Disposition: Return for scheduled. Follow-up and Disposition History Recorded Encounter Status:Closed by KEMI LAGUNAS CNP on 07/01/18 PROGRESS Observed: 07/01/2018 Status: COMPLETED Source: [place] 12:02 PM [facility] REPOSITORY O ID: [id number] Author: Kemi Lagunas Service: (none) Author Type: Nurse Practitioner Type: Progress Notes Filed: 07/01/2018 4:24 PM Note Text: [facility] Department of Cardiovascular Medicine SECTION OF INTERVENTIONAL CARDIOLOGY OUTPATIENT VISIT DATE July 01, 2018 OUTPATIENT VISIT TYPE ESTABLISHED PRIMARY CARE PHYSICIAN: Sara Zarate CNP [id number] [address] CHIEF COMPLAINT: Patient presents with: TAVR HISTORY OF PRESENT ILLNESS: Ms. Rolle is a 73 year old female who presents today for follow-up visit for Frailty Assessment and to discuss TAVR. She was seen by Dr. Maravilla 06/27/2018. She has PMH of DM, chronic afib, CHF-- on lasix, HLD, HTN, pul HTN, CKD III and recurrent GIB-- hospitalized 5x since spring requiring a total of 19 units of blood and still on IV iron infusions (right medi-port). She is very independent with her ADLs however has been slowing down lately due to TESFAYE. She denies chest pain, palpitations, lightheadedness and syncope. PAST CARDIAC HISTORY: See HPI PAST MEDICAL HISTORY Diagnosis Date - Anemia - CAD (coronary artery disease) - CHF (congestive heart failure) ([facility]) - Chronic a-fib ([facility]) - CKD (chronic kidney disease), stage III ([facility]) - DM (diabetes mellitus) ([facility]) - GI bleed 2018 reccurrent -- hospitalized 5x since spring requiring a total of 19 units of blood and IV iron infusions. - HLD (hyperlipidemia) - HTN (hypertension) - NSTEMI (non-ST elevated myocardial infarction) ([facility]) 2017 - Pulmonary HTN ([facility]) PAST SURGICAL HISTORY Procedure Laterality Date - APPENDECTOMY - FOOT SURGERY HX right - HYSTERECTOMY SOCIAL HISTORY Social History Substance Use Topics - Smoking status: Never Smoker - Smokeless tobacco: Never Used - Alcohol use No FAMILY HISTORY Problem Relation Age of Onset - Cervical Cancer Mother - Diabetes Father - Ischemic Heart Disease Father - Heart Attack Father - other (Polio) Father - Heart Brother valve problem ALLERGIES: ALLERGIES No Known Allergies MEDICATIONS: budesonide-formoterol (SYMBICORT) 160-4.5 mcg/actuation inhaler Inhale 2 Puffs as instructed once daily. furosemide (LASIX) 40 mg tablet Take 40 mg by mouth once daily. potassium chloride (K-TAB) 10 mEq tablet Take 10 mEq by mouth once daily. pantoprazole DR (PROTONIX) 40 mg tablet Take 40 mg by mouth once daily. metoprolol tartrate, short acting, (LOPRESSOR) 100 mg tablet Take 100 mg by mouth twice daily. rOPINIRole (REQUIP) 0.25 mg tablet Take 0.25 mg by mouth once daily. pravastatin (PRAVACHOL) 80 mg tablet Take 80 mg by mouth once daily. hydrALAZINE (APRESOLINE) 25 mg tablet Take 25 mg by mouth twice daily. sildenafil (REVATIO) 20 mg tablet Take 1 tablet by mouth three times daily. cholecalciferol (VITAMIN D-3) 2,000 unit tablet Take 2,000 Units by mouth once daily. Magnesium 250 mg tab Take 250 mg by mouth once daily. CALCIUM CITRATE ORAL Take by mouth once daily. MULTIVITAMIN ORAL Take by mouth once daily. ubidecarenone Q-10 (CO Q-10) 10 mg cap Take by mouth twice daily. amoxicillin (AMOXIL) 875 mg tablet Take 1 tablet by mouth once daily. For 10 days. Started on 06/22/18 CARDIOVASCULAR MEDICINE TESTING: [facility] 2017: -LVEF 65% -RA Assessment: --- PA 107/40 67 --- RV 95/0 11 --- RA 21 -LM: Normal -LAD: mild luminal irregularities less than 30% -LCx: mod luminal irregularities up to 50% -RCA mild luminal irregularities less than 30% ? ? 05.02.2018 Echo Summary -Normal LV size -Mod concentric LV hypertrophy -LV systolic function is normal -EF 55% -Severe (stage III) diastolic dysfunction -Mild-mod eccentric mitral valve insufficiency -Severe pulmonary HTN -Severe -Mild aortic valve insufficiency ? 05.23.2018 MANA Summary -Normal LV size -LV systolic function normal -EF 60% -RA os severely enlarged -Mod focal aortic valve calcification -Mod -Mod reduction in aortic cusp seperation Frailty Index Data Collection Form July 01, 2018 Gabbi Rolle Serum Albumin 4.5 g/dl Collection date/time: 06/27/2018 ADRIAN Activities of Daily Living: Activities Points (1 or 0) Cannon: (1 Point) No supervision, direction or personal assistance Dependence: (0 Points) With supervision,direction,personal assistance or total care Bathing Points: 1 (1Point) Bathes self completely or needs help in bathing only a single part of the body such as the back, genital area or disabled extremity. (0 Points) Needs help with bathing more than one part of the body ,getting in or out of the tub or shower. Requires total bathing. Dressing Points: 1 (1 Point) Get clothes from closet and drawers and puts clothes and outer garments complete with fasteners. May have help tying shoes. (0 Points) Needs help with dressing self or needs to be completely dressed. Toileting Points: 1 (1 Point) Goes to toilet, gets on and off, arranges clothes, cleans genital area without help. (0 Points) Needs help transferring to the toilet, cleaning self or uses bedpan or commode. Transferring Points: 1 (1 Point) Moves in and out of bed or chair unassisted. Mechanical transferring aids are acceptable (0 Points) Need help in moving from bed to chair or requires a complete transfer. Continence Points: 1 (1 Point) Exercise complete self control over urination and defecation. (0 Points) Is partiially or total incontinent of bowel and bladder. Feeding Points: 1 (1 Point ) Gets food from plate into mouth without help. Preparation of food may be done by another person. (0 Points) Needs partial or total help with feeding or requires parenteral feeding. Total Points = 6 15 - Foot Walk: 11 seconds Cutoff off time to walk 15 feet criterion for frailty: Men Women Height < 173 cm > 7 seconds Height < 159 cm > 7 seconds Height > 173 cm > 6 seconds Height > 159 cm > 6 seconds IMPRESSION: Ms. Rolle is a 73 year old female who presents today for follow-up visit for Frailty Assessment and to discuss TAVR. She was seen by Dr. Maravilla 06/27/2018. PLAN AND RECOMMENDATIONS: I have spoken with Mrs. Rolle regarding the evaluation process for HR AVR. I reviewed the commercially available [employer]arrete [employer] valve, including the valve model. I showed the animation of the TF procedure while explaining the procedure. I also reviewed the Sentinnel device. We discussed pre-op planning which includes the need to come 1-2 days prior to surgery to have an updated HANDP, pre-surgical labs and meet with anesthesia. ? ?Hospital stay follow TF-TAVR is generally 2-3 days. Activity restriction is no heavy lifting of more than 10 pounds for 1 week following TAVR and no extensive walking. We also discussed the use of Plavix and ASA post TAVR. ? Dental clearance discussed. I stressed the importance of obtaining this clearance prior to TAVR. Patient has form and will see dentist Dr. Morel locally. ? I have reviewed the following test results: ECHO, CTA and cardiac cath. ? I explained to patient that this is a surgical evaluation as well and that TAVR was commercially approved for patients that are considered high risk or intermediate risk for traditional OHS. I have discussed with patient that once all of the testing has been completed, the results will be reviewed by the HR AVR team and She will be notified of the recommendations. Notification following the team meeting could take up to 2 weeks. ? Scheduling of the TAVR procedure could take up to 6-8 weeks from the time of the team recommendations. We also discussed signs and symptoms of increased shortness of breath and peripheral edema should be reported to the local physician right away and be treated accordingly, If hospitalization is required, then it should be done. We can be notified with this information and all efforts will be made to expedite procedure accordingly. Of note, patient is scheduled for non contrast MRI today to assess her annulus. ? Kemi Lagunas CNP ? I spent 30- minutes in this visit, with more than 50% of the time devoted to patient counseling. ? CONTACT INFORMATION: MARY Observed: 07/01/2018 Status: COMPLETED Source: [place] 12:00 PM [facility] REPOSITORY Office Visit ([facility]) GABBI ROLLE ([id number]) 1945 F Date Time Provider Department 07/01/18 12:00 PM [facility] During your visit today, we recorded the following information about you: Jerry Francis MD 07/02/2018 10:31 AM Signed CHART COPY DO NOT DISCARD Patient Type: Consult Visit to determine Surgery: Yes PCP: Sara Zarate CNP [address] [address] Referring Physician:: Jeremias Maravilla [facility] [address] [facility] [address] HPI: Ms. Gabbi Rolle is a 73 year old female seen in consultation at the request of Jeremias Yeung) Renita for opinion regarding treatment options for Aortic Stenosis. Comorbidities include, chronic afib, morbid obesity (BMI 49), CKD (Cre 2.6) pulm HTN. She is currently symptomatic and complains of shortness of breath The Echocardiogram reveals aortic stenosis, 2-3+TR, 1-2MR. Based on my evaluation she is a medium risk for open heart surgery and AVR. Impression: Aortic Stenosis Plan:would recommend TAVR I spent 30 minutes in this visit, with more than 50% of the time devoted to patient counseling. These findings will be communicated back to the requesting physician via electronic medical record Jerry Francis MD Referring Provider: JEREMIAS MARAVILLA) [[id number]] Allergies As of Date: 07/01/2018 (No Known Allergies) Date Reviewed: 07/01/2018 Reviewed by: Clarice (Rn) JOYCE Rodríguez - Fully Assessed Primary Visit Diagnosis:Nonrheumatic aortic valve stenosis [I35.0] Prescriptions as of 07/01/2018 Sig: BUDESONIDE-FORMOTEROL HFA 160* Inhale 2 Puffs as instructed * FUROSEMIDE 40 MG TABLET Take 40 mg by mouth once greg* POTASSIUM CHLORIDE ER 10 MEQ * Take 10 mEq by mouth once patrick* PANTOPRAZOLE 40 MG TABLET,DEL* Take 40 mg by mouth once greg* METOPROLOL TARTRATE 100 MG TA* Take 100 mg by mouth twice da* ROPINIROLE 0.25 MG TABLET Take 0.25 mg by mouth once da* PRAVASTATIN 80 MG TABLET Take 80 mg by mouth once greg* HYDRALAZINE 25 MG TABLET Take 25 mg by mouth twice patrick* SILDENAFIL (ANTIHYPERTENSIVE)* Take 1 tablet by mouth three * CHOLECALCIFEROL (VITAMIN D3) * Take 2,000 Units by mouth onc* MAGNESIUM 250 MG TABLET Take 250 mg by mouth once patrick* CALCIUM CITRATE ORAL Take by mouth once daily. MULTIVITAMIN ORAL Take by mouth once daily. COENZYME Q10 10 MG CAPSULE Take by mouth twice daily. AMOXICILLIN 875 MG TABLET Take 1 tablet by mouth once d* Problem List As Of Date: 07/01/2018 (None) Encounter Status:Closed by JERRY FRANCIS on 07/02/18 PROGRESS Observed: 06/27/2018 Status: COMPLETED Source: [place] 4:19 PM [facility] RE[facility] HNO ID: [id number] Author: Beth (Rn) JOYCE John Service: (none) Author Type: Registered Nurse Type: Progress Notes Filed: 06/27/2018 4:20 PM Note Text: 06/27/2018 4:19 PM IV Access: Mediport IV Site: right CW IV GAUGE 18 gauge IV Removal Date 06/27/2018 Time 1620 Reactions: WNL CNOV Observed: 06/27/2018 Status: COMPLETED Source: [place] 3:30 PM [facility] REPOSITORY Office Visit ([facility]) GABBI ROLLE ([id number]) 1945 F Date Time Provider Department 06/27/18 3:30 PM JB2 ECHOCARDIOGRAM [facility] During your visit today, we recorded the following information about you: Beth John RN, RN 06/27/2018 4:20 PM Signed 06/27/2018 4:19 PM IV Access: Mediport IV Site: right CW IV GAUGE 18 gauge IV Removal Date 06/27/2018 Time 1620 Reactions: WNL Referring Provider: JEREMIAS MARAVILLA) [[id number]] Allergies As of Date: 06/27/2018 (No Known Allergies) Date Reviewed: 06/27/2018 Reviewed by: Clarice (Rn) JOYCE Rodríguez - Fully Assessed Reason for Visit: IV Removal [4187] Cmt: R CW Mediport Reason For Visit History Recorded Visit Diagnoses:Encounter for other preprocedural examination [Z01.818] Aortic valve disorder [I35.9] Order(s):ECHO [[id number]] Order #: [id number]: 1 Prescriptions as of 06/27/2018 Sig: BUDESONIDE-FORMOTEROL HFA 160* Inhale 2 Puffs as instructed * FUROSEMIDE 40 MG TABLET Take 40 mg by mouth once greg* POTASSIUM CHLORIDE ER 10 MEQ * Take 10 mEq by mouth once patrick* PANTOPRAZOLE 40 MG TABLET,DEL* Take 40 mg by mouth once greg* METOPROLOL TARTRATE 100 MG TA* Take 100 mg by mouth twice da* ROPINIROLE 0.25 MG TABLET Take 0.25 mg by mouth once da* PRAVASTATIN 80 MG TABLET Take 80 mg by mouth once greg* HYDRALAZINE 25 MG TABLET Take 25 mg by mouth twice patrick* SILDENAFIL (ANTIHYPERTENSIVE)* Take 1 tablet by mouth three * CHOLECALCIFEROL (VITAMIN D3) * Take 2,000 Units by mouth onc* MAGNESIUM 250 MG TABLET Take 250 mg by mouth once patrick* CALCIUM CITRATE ORAL Take by mouth once daily. MULTIVITAMIN ORAL Take by mouth once daily. COENZYME Q10 10 MG CAPSULE Take by mouth twice daily. AMOXICILLIN 875 MG TABLET Take 1 tablet by mouth once d* IV CONTRAST (RADIOLOGY PROCED* MRI Cardiac wo/w Inject, intr* Problem List As Of Date: 06/27/2018 (None) Encounter Status:Closed by BETH JOHN on 06/27/18 PROGRESS Observed: 06/27/2018 Status: COMPLETED Source: [place] 1:19 PM [facility] REPOSITORY HNO ID: [id number] Author: Clarice (Joyce) JOYCE Rodríguez Service: Radiology Author Type: Registered Nurse Type: Progress Notes Filed: 06/27/2018 1:20 PM Note Text: RADIOLOGY SERVICE PROGRESS NOTE DATE OF SERVICE: June 27, 2018 TIME OF SERVICE: 1310 EVENT: CT scan changed to no contrast due to patient's kidney function. Dr Charles notifed. Cr 1.5/gfr 34 today (06/27/2018). ADDITIONAL DATA: N/A SIGNATURE: Clarice Rodríguez RN PATIENT NAME: Gabbi Rolle DATE: June 27, 2018 TIME: 1:19 PM PAGER/CONTACT #: CT CARDIAC CAP WO Observed: 06/27/2018 Status: F Source: [facility] 1:08 PM [facility] REPOSITORY * * *Final Report* * * DATE OF EXAM: Jun 27 2018 1:08PM [facility] 2059 - CT CARDIAC CAP WO IVCON / PROCEDURE REASON: multiple diagnoses * * * * Physician Interpretation * * * * CT Aorta chest, abdomen, pelvis Direct Image Comparison: CXR 06/27/2018 HISTORY: 73 year female patient with chronic h/o severe symptomatic aortic stenosis The patient is evaluated for further treatment options, including surgical and transcatheter treatment options. There is need to define thoracic and aortic anatomy. TECHNIQUE: Out-patient scan SCANNER: Multi-detector CT technology (Siemens Definition Force Dual source [id number] scanner) PROTOCOL: Non-gated, helical high-pitch acquisitions with 1 and 3-mm slice reconstruction was performed without administration of contrast material. Scan Range: diaphragm through the ischial tuberosities Tube Voltage: [address] Dose-Length Product (DLP): 482 mGy*cm CT Dose Reduction Employed: Automated exposure control(AEC) and iterative recon Radiation Shielding Employed: Yes CONTRAST: None Scan acquisition: uncomplicated For optimization of anatomic evaluation, off-line postprocessing was performed on a dedicated workstation by the interpreting physician. Additional lung CAD STUDY LIMITATIONS: None RESULT: Subcutaneous port right upper chest with central veinous line with tip at the roof of the RA CHEST: Chest wall anatomy: unremarkable Lungs: bibasilar atelectasis, mosaic attenuation Non-calcified up to 6 mm nodule right upper and middle lung lobe (Image # 26, 63) . 5 mm nodular opacification in the central aspect of the right lower lung lobe. Incidental Finding: Follow-up for this incidentally detected lung nodule chest CT exam is recommended in 6-12 months Mediastinum: Enlarged mediastinal and para-aortic lymph nodes, the largest at the precarinal region measures 1.6 cm. Clinical correlation is recommended Pericardium: unremarkable Central pulmonary artery: ectasia, measuring 3.3 cm, assessment is limited due to limited contrast enhancement CARDIAC CHAMBERS: assessment is limited in the non-contrast enhanced study biatrial enlargement CENTRAL VENOUS and PULMONARY VENOUS RETURN: prominent IVC Coronary Sinus: normal dimensions MITRAL VALVE: no mitral valve calcification Mild mitral annular calcification CORONARY ANATOMY: Normal origin of the coronary arteries Diffuse, calcified atherosclerotic changes of the coronary arteries, precluding precise assessment with CT. - [place] LIZA and CARLYLE are normal size vessels without evidence of calcified atherosclerotic changes. AORTA ANNULUS: Precise assessment is limited in the noncontrast enhanced study AORTIC VALVE: Assessment is limited in the current study; severe leaflet calcification AORTIC ROOT: Ectasia; Diameter: 3.8 cm Sinotubular Junction: maintained; moderate to severe calcification ASCENDING THORACIC AORTA: normal size; Diameter: 3.6 cm ; mild ostial area calcification Aortic Arch: normal size; Maximum Diameter: 3.2 cm ; mild calcification Arch Branch Vessels: normal size; assessment for patency is not possible in the non-contrast enhanced study; mild proximal calcification; common origin of the right innominate artery and left carotid artery Descending Thoracic Aorta: normal size; Diameter: (mid descending level): 2.4 cm ; mild calcification; Juxtarenal Abdominal Aorta: normal size; mild calcification Visceral Branch Vessels and Renal Arteries: normal size; assessment for patency is not possible in the non-contrast enhanced study; mild calcification Infrarenal Abdominal Aorta: normal size; Diameter: 1.5 cm ; mild to moderate calcification Common Iliac Arteries: normal size; moderate calcification assessment for patency is not possible in the non-contrast enhanced study;; estimated Minimal Luminal Diameter: 8 mm External Iliac Arteries: normal size; mild calcification assessment for patency is not possible in the non-contrast enhanced study;, estimated Minimal Luminal Diameter: 5-6 mm Relationship OF CARDIOVASCULAR STRUCTURES TO STERNUM: The RA lies 5 mm behind the lower sternum. AORTIC CALCIFICATION: see above. Mild posterior calcification of the ascending thoracic aorta AORTIC ARCH BRANCH VESSELS: see above. Mid and distal subclavian arteries: normal size vessels without evidence of calcification Assessment of patency is not possible in a non-contrast study ABDOMEN: Gallbladder: unremarkable Liver: normal Spleen: Normal Adrenal glands: normal Pancreas: normal Kidneys: normal PELVIS: Scattered phleboliths Diverticulosis of the colon uterus is not identified IMPRESSION: ANNULUS: Precise assessment is limited in the noncontrast enhanced study AORTIC VALVE: severe leaflet calcification AORTIC ROOT: ECTASIA; Diameter: 3.8 cm Thoracic And Abdominal Aorta: normal size Common Iliac Arteries: normal size; moderate calcification assessment for patency is not possible in the non-contrast enhanced study;; estimated Minimal Luminal Diameter: 8 mm External Iliac Arteries: normal size; mild calcification assessment for patency is not possible in the non-contrast enhanced study;, estimated Minimal Luminal Diameter: 5-6 mm CORONARY ANATOMY: Diffuse, calcified atherosclerotic changes of the coronary arteries, precluding precise assessment with CT Enlarged mediastinal and para-aortic lymph nodes, the largest at the precarinal region measures 1.6 cm. CLINICAL CORRELATION IS RECOMMENDED Lungs: Non-calcified up to 6 mm nodule right upper and middle lung lobe (Image # 26, 63) . 5 mm nodular opacification in the central aspect of the right lower lung lobe. FOLLOW-UP FOR THIS INCIDENTALLY DETECTED LUNG NODULE CHEST CT EXAM IS RECOMMENDED IN 6-12 MONTHS Hubbard Images reconstructed, saved, and available in [facility], '[facility] Images' COMMUNICATION: Communicated with: Dr. Maravilla on 06/27/2018 at 16:30. Propeller Mechanic: PSCB Transcribe Date/Time: Jun 27 2018 2:37P Dictated by : SABINA BOOTHE MD This examination was interpreted and the report reviewed and electronically signed by: SALEEM DALEY MD on Jun 27 2018 4:23PM EST [id number] PROGRESS Observed: 06/27/2018 Status: COMPLETED Source: [place] 1:06 PM [facility] REPOSITORY HNO ID: [id number] Author: Lolly Pantoja Ct Service: (none) Author Type: (none) Type: Progress Notes Filed: 06/27/2018 1:06 PM Note Text: Radiology Service Progress Note PATIENT NAME: Gabbi Rolle DATE OF SERVICE: June 27, 2018 TIME: 1:06 PM PATIENT IDENTITY VERIFICATION COMPLETED USING TWO (2) METHODS: Patient confirmed name verbally and ID band matches.. PATIENT GENDER DATA: Female. status: : No status: NO. PATIENT RELEVANT IMPLANT DATA REVIEWED: Yes RADIOLOGY DEPARTMENT: CT; Exam(s) Completed: Cardiac PERIPHERAL IV DATA: Not applicable SIGNED BY: Lolly Pantoja Ct June 27, 2018 1:06 PM PROGRESS Observed: 06/27/2018 Status: COMPLETED Source: [place] 12:43 PM [facility] REPOSITORY HNO ID: [id number] Author: Niya Aburto Service: (none) Author Type: (none) Type: Progress Notes Filed: 06/27/2018 12:43 PM Note Text: Radiology Service Progress Note PATIENT NAME: Gabbi Rolle DATE OF SERVICE: June 27, 2018 TIME: 12:43 PM PATIENT IDENTITY VERIFICATION COMPLETED USING TWO (2) METHODS: Patient confirmed name verbally and Date of . PATIENT GENDER DATA: Female. status: : No status: NO. PATIENT RELEVANT IMPLANT DATA REVIEWED: Not Applicable RADIOLOGY DEPARTMENT: General X-ray: Exam(s) Completed: Chest X-Ray PERIPHERAL IV DATA: Not applicable SIGNED BY: Niya Aburto June 27, 2018 12:43 PM PROGRESS Observed: 06/27/2018 Status: COMPLETED Source: [place] 12:41 PM [facility] REPOSITORY HNO ID: [id number] Author: Clarice Buchanan) JOYCE Rodríguez Service: Radiology Author Type: Registered Nurse Type: Progress Notes Filed: 06/27/2018 1:20 PM Note Text: Radiology Service Progress Note PATIENT NAME: Gabbi Rolle DATE OF SERVICE: June 27, 2018 TIME: 12:41 PM PATIENT WEIGHT: 313 LBS PATIENT IDENTITY VERIFICATION COMPLETED USING TWO (2) METHODS: Patient confirmed name verbally, ID Band and Date of . PATIENT GENDER DATA: Female. status: : No status: NO. CONTRAST INDUCED NEPHROPATHY RISK FACTORS: Patient age > 60 years, Diabetic: Yes. Current medication(s): None. Patient currently has insulin pump?: No., Known Chronic Kidney Disease (CKD) and Congestive Heart Failure (CHF) CREATININE: No results found for: CREAT, EGFROTH, EGFRAA P.O.C.T. RESULTS: POC done: Yes, See Lab Tab Cr 1.5/gfr 34 June 27, 2018 TREATMENT: Dr. Charles notified. and No Hydration needed. CT scan changed to no contrast due to patient's kidney function. ALLERGIES: Reviewed and unchanged CONTRAST ALLERGY: NO. IV SITE: Ambulatory: A power injectable Mediport was accessed in the Right chest with a 0.75 inch 20 gauge needle. Blood Return, Flushed easily with normal saline, Good Blood Return Post Injection and No Complications and A Saline lock was inserted per protocol. No heparin flush as patient needs her port left accessed for next appointment. Pt does have a Smart port as she did bring with her the card. IV SITE APPEARANCE: Clean,Dry and Intact SIGNED BY: Clarice Rodríguez RN June 27, 2018 12:41 PM PROTIME Collected: 06/27/2018 Status: F Source: [place] 12:04 PM [facility] REPOSITORY TYPE CODE TESTS RESULT OUT OF RANGE REFERENCE UNITS LAB PSEC 9.7-13.0 sec PT Sec 11.2 LAB INR 0.9-1.3 PT INR 1.1 Result Comment: Vitamin K Antagonist (VKA) Therapeutic Range: INR 2 to 3 (Target INR of 2.5) Note: For patients treated with VKA drugs, such as warfarin, the [place] [employer] 2012 Guideline recommends a therapeutic INR range of 2 to 3 (target INR of 2.5). This recommendation includes high-risk patients with antiphospholipid syndrome with previous arterial or venous thromboembolism, current-generation mechanical or bioprosthetic aortic heart valve replacement. Note: Patients with mechanical aortic valve replacement and additional risk factors for thromboembolic events (atrial fibrillation, previous thromboembolism, LV dysfunction, hypercoagulable conditions) or an older generation mechanical AVR (i.e., ball in-Cage) or any mechanical MVR should have a INR therapeutic range of 2.5 to 3.5 (target INR of 3). Melissa GH, et al. Chest 2012, 141:7S-47S Ronald RA, et al. [facility] 2017, 70: 252-289 Performed By: #### PT, CBCDIF, CMP, NTBNP #### [facility] [address] [place] [address] CBC AND DIFFERENTIAL Collected: 06/27/2018 Status: F Source: [place] 12:04 PM [facility] REPOSITORY TYPE CODE TESTS RESULT OUT OF REFERENCE UNITS RANGE LAB WBC 3.70-11.00 k/uL WBC 5.94 LAB RBC 3.90-5.20 m/uL Low RBC 3.73 LAB HGB 11.5-15.5 g/dL Low Hemoglobin 10.8 LAB HCT 36.0-46.0 % Low Hematocrit 35.5 LAB MCV 80.0-100.0 fL MCV 95.2 LAB MCH 26.0-34.0 pG MCH 29.0 LAB MCHC 30.5-36.0 g/dL Low MCHC 30.4 LAB RDWCV 11.5-15.0 % RDW-CV High 15.4 LAB PLTCT 150-400 k/uL Platelet Count 168 Result Comment: Result checked and verified No clot detected. LAB MPV 9.0-12.7 fL MPV High 13.0 LAB ANEUT % Neut% 78.2 LAB AANEUT 1.45-7.50 k/uL Abs Neut 4.62 LAB ALYMP % Lymph% 15.5 LAB AALYMP 1.00-4.00 k/uL Low Abs Lymph 0.92 LAB AMONO % Roosevelt% 4.7 LAB AAMONO <0.87 k/uL Abs Roosevelt 0.28 LAB AEOS % Eosin% 1.3 LAB AAEOS <0.46 k/uL Abs Eosin 0.08 LAB ABASO % Baso% 0.3 LAB AABASO <0.11 k/uL Abs Baso <0.03 LAB AUNRBC 0 /100 WBC NRBCs 0.0 LAB ABNRBC <0.01 k/uL Absolute nRBC <0.01 LAB DTYP DTYPE Auto Diff Performed By: #### PT, CBCDIF, CMP, NTBNP #### [facility] [address] [place], [place] [address] COMP METABOLIC PANEL Collected: 06/27/2018 Status: F Source: [place] 12:04 PM [facility] REPOSITORY TYPE CODE TESTS RESULT OUT OF REFERENCE UNITS RANGE LAB TP 6.3-8.0 g/dL Protein, Total 8.0 LAB ALB 3.9-4.9 g/dL Albumin 4.5 LAB CA 8.5-10.2 mg/dL Calcium, High Total 10.4 LAB TBIL 0.2-1.3 mg/dL Bilirubin, Total 0.4 LAB ALKP 34-123 U/L Alkaline Phosphatase 91 LAB AST 13-35 U/L AST 18 LAB GLU 74-99 mg/dL Glucose High 118 Result Comment: The [place] [employer] (ADA) provides guidance for cutoff values for fasting glucose and random glucose. The ADA defines fasting as no caloric intake for at least 8 hours. Fas ting plasma glucose results between 100 to 125 mg/dL indicate increased risk for diabetes (prediabetes). Fasting plasma glucose results greater than or equal to 126 mg/dL meet the criteria for diagnosis of diabetes. In the absence of unequivocal hyperglycemia, results should be confirmed by repeat testing. In a patient with classic symptoms of hyperglycemia or hyperglycemic crisis, random plasma glucose results greater than or equal to 200 mg/dL meet the criteria for diagnosis of diabetes. Reference: Standards of Medical Care in Diabetes 2016, [place] [employer]. Diabetes Care. 2016.39(Suppl 1). LAB BUN 7-21 mg/dL BUN High 33 LAB CRET 0.58-0.96 mg/dL Creatinine High 1.57 LAB NA 136-144 mmol/L Sodium 141 LAB K 3.7-5.1 mmol/L Potassium 4.4 LAB CL 97-105 mmol/L Chloride 103 LAB CO2 22-30 mmol/L CO2 24 LAB AGAP 9-18 mmol/L Anion Gap 14 LAB ALT 7-38 U/L ALT 12 LAB GFRAA eGFR- Amer. 39 LAB GFRNAA . eGFR-All Other Races 32 Result Comment: eGFR (Estimated GFR) Units of measure: mL/min/1.73 meters squared eGFR is derived from the reexpressed MDRD Study equation using the following parameters: serum creatinine, age, gender and race. The creatinine assay has been calibrated to be traceable to IDMS. An eGFR <60 mL/min/1.73m2 for >3 months is consistent with chronic kidney disease. Refer to KDOQI guidelines for clinical interpretation. In patients with unstable renal function, e.g. those with acute kidney injury, the eGFR may not accurately reflect actual GFR. Performed By: #### PT, CBCDIF, CMP, NTBNP #### [facility] [address] [place], [place] [address] NT PRO BNP Collected: 06/27/2018 Status: F Source: [place] 12:04 PM [facility] REPOSITORY TYPE CODE TESTS RESULT OUT OF REFERENCE UNITS RANGE LAB PBNP <450 pg/mL High PRO B Natr 3009 Peptide Performed By: #### PT, CBCDIF, CMP, NTBNP #### [facility] [address] [place], [place] [address] XR CHEST 2V FRONTAL/LAT Observed: 06/27/2018 Status: F Source: [place] 11:42 AM [facility] REPOSITORY * * *Final Report* * * DATE OF EXAM: Jun 27 2018 11:42AM JIX [id number] - XR CHEST 2V FRONTAL/LAT / PROCEDURE REASON: multiple diagnoses * * * * Physician Interpretation * * * * EXAMINATION: CHEST RADIOGRAPH (2 VIEW FRONTAL and LATERAL) CLINICAL HISTORY: Encounter for other preprocedural examination Aortic valve disorder MQ: XC2_5 Comparison: None, correlation with cardiac CT dated 06/27/2018 RESULT: Lines, tubes, and devices: Right IJ Mediport terminates near superior cavoatrial junction. Lungs and pleura: No large lung consolidation. Left greater than right mid to lower lung zone scattered linear strandy opacities, related to atelectasis. No significant pneumothorax or effusion. Well-expanded lungs. Cardiomediastinal silhouette: Enlarged cardiac silhouette, related to known biatrial dilation. Difficult to visualize known aortic valvular leaflet calcifications. Other: Degenerative changes of the spine. Upper extremities obscure part of the anterior thorax on the lateral view. Presumed morbid obesity. IMPRESSION: See body of the report. Propeller Mechanic: PSCB Transcribe Date/Time: Jun 28 2018 10:31A Dictated by : MAURILIO ABDUL MD This examination was interpreted and the report reviewed and electronically signed by: MAURILIO ABDUL MD on Jun 28 2018 10:34AM EST [id number] ECG COMPLETE W Observed: 06/27/2018 Status: F Source: [place] INTERPRETATION 11:24 AM [facility] REPOSITORY NAME : GABBI ROLLE PID : [id number] : 1945 Gender : Female Race : ORD : [id number] Procedure Date : Jun 27 2018 11:24:46 Edit Date : Jul 03 2018 14:27:51 Diagnosis:ATRIAL FIBRILLATION NONSPECIFIC ST AND T WAVE ABNORMALITY ABNORMAL ECG Confirmed by MD LIRA TAMANNA ([id number]) on 07/03/2018 2:25:38 PM Ventricular Rate : 60 BPM Atrial Rate : 62 BPM QRS Duration : 102 ms Q-T Interval : 416 ms QTC Calculation(Bezet) : 416 ms R Kathleen : 43 degrees T Kathleen : -1 degrees Test Reason : Location : 314 : J14 J1-4 Overread By : MD LIRA TAMANNA Edited By : MD LIRA TAMANNA Referred By : JEREMIAS MARAVILLA Acquired by : RAJESH DIXON PROGRESS Observed: 06/27/2018 Status: COMPLETED Source: [place] 9:18 AM [facility] REPOSITORY HNO ID: [id number] Author: Jeremias Yeung) MD Renita Service: (none) Author Type: Physician Type: Progress Notes Filed: 06/27/2018 11:28 AM Note Text: Heart and V[facility] Department of Cardiovascular Medicine SECTION OF INTERVENTIONAL CARDIOLOGY OUTPATIENT VISIT DATE June 27, 2018 OUTPATIENT VISIT TYPE NEW PRIMARY CARE PHYSICIAN: Sara Zarate, HEAD KILN OPERATOR [id number] [facility] [address] [place] [address] REFERRING PHYSICIAN: Niraj Raymundo MD ([facility]) [address] [facility] [address] CHIEF COMPLAINT: TAVR evaluation HISTORY OF PRESENT ILLNESS: Mrs. Rolle is a delightful and independent 73 year old woman from near [place] who presents today with her for ANTWON evaluation. She is able to undertake all of her ADLs and does not currently have much in the way of symptoms. However earlier this year she was in marked right heart failure as a result of severe pulmonary hypertension which perhaps has stemmed from being chronically hypoxemic secondary to obstructive sleep apnea hypopnea syndrome. Aggressive diuresis helped resolve her dyspnea and right heart failure and she is now feeling a lot better. She denies any angina or syncope. Her other chief medical issues pertain to chronic atrial fibrillation and the inability to tolerate in the past systemic anticoagulation. She's had recurrent GI bleeding over a number of years and has in total received nearly 20 units of intravenous blood products. More recently in March this year she underwent coil embolization to a colonic artery and reassuringly she does not describe any hematochezia or melena since then. I'm led to believe her last hemoglobin was stable at 10g/dL last month. 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 Her serial echocardiography is have clearly demonstrated progressive aortic stenosis to the extent that it is now severe in nature. The mean transaortic gradient is 43 mmHg with a calculated ALONSO of 0.67 cm?. Her LVEF was preserved at 65%. RV is severely dilated in association with severe pulmonary hypertension. She has mild MR and moderate plus TR. Her coronary angiogram performed in March 2017 did not show any significant coronary artery disease. Her peak to peak transaortic gradient was concordant with her echo findings ant 44 mmHg. Her mean invasive pulmonary artery pressure was recorded at 67 mmHg. NURSING INTAKE: PMx: -DM -chronic afib -CHF-- on lasix -HLD -HTN -pul HTN -CKD III -recurrent GIB-- hospitalized 5x since spring requiring a total of 19 units of blood and still on IV iron infusions (right medi-port). Ms. Rolle is a 73 year old female here today for cardiac evaluation for a aortic stenosis and possible TAVR. Since the spring she has been hospitalized a total of 5 times for a GIB requiring a total of 19 units of blood. A subcutaneous port was placed for continuing IV iron infusion. No GIB since. Admission in December for SOB and FVO, diuresed and discharged with improvement of SOB. At a follow up apointment in April with her local software requirements engineer Dr. Niraj Raymundo ordered an echo that showed mod , EF 55%, stage III systolic dysfunction, mod MR, mod-severe TR, and pulmonary systolic pressure of 75 mmHg. Underwent a subsequent MANA for further evaluation. Her local software requirements engineer consulted her here for TAVR evaluation. She states that she has had an improvement of her SOB since being diuresed but she continues to have some mild SOB when walking long distances. She denies chest pain, had a right and left cath in March 2017 to evaluate her pulmonary hypertension. She denies chest pain, dyspnea on exertion, orthopnea, PND, palpitations, lightheadedness, syncope, claudication, cough and wheezing. Diet / Nutrition: Low salt, low fat, low sugar Weight: Stable Exercise: No 04.10.2017 Coronary Angio -LVEF 65% -RA Assessment: --- PA 107/40 67 --- RV 95/0 11 --- RA -LM: Normal -LAD: mild luminal irregularities less than 30% -LCx: mod luminal irregularities up to 50% -RCA mild luminal irregularities less than 30% 9.14.2017 Echo Summary -Normal LV size -Mod concentric LV hypertrophy -LV systolic function is normal -EF 55% -Severe (stage III) diastolic dysfunction -Mild-mod eccentric mitral valve insufficiency -Severe pulmonary HTN -Severe -Mild aortic valve insufficiency 10. MANA Summary -Normal LV size -LV systolic function normal -EF 60% -RA os severely enlarged -Mod focal aortic valve calcification -Mod -Mod reduction in aortic cusp seperation PAST MEDICAL HISTORY Diagnosis Date - Anemia - CAD (coronary artery disease) - CHF (congestive heart failure) ([facility]) - Chronic a-fib ([facility]) - CKD (chronic kidney disease), stage III ([facility]) - DM (diabetes mellitus) ([facility]) - GI bleed 2018 reccurrent -- hospitalized 5x since spring requiring a total of 19 units of blood and IV iron infusions. - HLD (hyperlipidemia) - HTN (hypertension) - NSTEMI (non-ST elevated myocardial infarction) ([facility]) 2017 - Pulmonary HTN ([facility]) PAST SURGICAL HISTORY Procedure Laterality Date - APPENDECTOMY - FOOT SURGERY HX right - HYSTERECTOMY SOCIAL HISTORY Social History Substance Use Topics - Smoking status: Not on file - Smokeless tobacco: Not on file - Alcohol use Not on file FAMILY HISTORY Problem Relation Age of Onset - Cervical Cancer Mother - Diabetes Father - Ischemic Heart Disease Father - Heart Attack Father - other ([place]) Father - Heart Brother valve problem ALLERGIES: ALLERGIES No Known Allergies MEDICATIONS: budesonide-formoterol (SYMBICORT) 160-4.5 mcg/actuation inhaler Inhale 2 Puffs as instructed once daily. furosemide (LASIX) 40 mg tablet Take 40 mg by mouth once daily. potassium chloride (K-TAB) 10 mEq tablet Take 10 mEq by mouth once daily. pantoprazole DR (PROTONIX) 40 mg tablet Take 40 mg by mouth once daily. metoprolol tartrate, short acting, (LOPRESSOR) 100 mg tablet Take 100 mg by mouth twice daily. rOPINIRole (REQUIP) 0.25 mg tablet Take 0.25 mg by mouth once daily. pravastatin (PRAVACHOL) 80 mg tablet Take 80 mg by mouth once daily. REVIEW OF SYSTEMS: GENERAL: no fever, no chills and no change in weight HEENT: no headaches, no hearing loss, no difficulty swallowing SKIN: no rashes, no lesions and no ulcers RESPIRATORY: SEE HPI CARDIOVASCULAR: See HPI GASTROINTESTINAL: no nausea and no vomiting GENITOURINARY: frequency MUSCULOSKELETAL: joint pain NEUROLOGIC: no numbness and no tingling HEMATOLOGY: anemia ENDOCRINE: cold or heat intolerance and diabetes PSYCH: no sleep disturbance and no mood disorders PHYSICAL EXAMINATION: BP 140/82 Pulse 67 Ht 5' 7 (1.70m) Wt 310 lb (140.6kg) SpO2 96% BMI 48.54 kg/(m2). General:obese Skin:warm Head/Eyes:PERRLA and EOM's intact Mouth:fair dentition Neck:no JVD, no carotid bruits Lungs:clear to auscultation and no rales Heart:S1, S2/P2 is loud with a murmur consistent with severe aortic stenosis PV Pulses:pulses intact Abdomen:soft, firm, round, non-tender Extremities:edema 1+ bilateral Edema Scale:2+ CARDIOVASCULAR MEDICINE TESTING: No Cardiovascular testing perfomed today. I have personally reviewed the Echocardiogram and Cardiac Catheterization/Percutaneous Coronary Intervention (PCI) (results as described above). IMPRESSION: Mrs. Rolle is a 73 year old female with severe aortic stenosis in the context of chronic atrial fibrillation, severe pulmonary hypertension and recent right heart failure. She's had recurrent lower GI bleeds however these have settled since a recent mesenteric artery coil embolization procedure. Hemoglobin is now stable at 10. She has chronic kidney disease with a baseline creatinine of around 2.5. PLAN AND RECOMMENDATIONS: I don't feel strongly about repeating coronary angiography given her abnormal baseline renal function and relatively normal coronary angiogram findings from a year ago. She will have a noncontrast CT scan to assess her anatomy although we will need to perform MR angiography to better assess her annular dimensions. She may be a candidate for our WATCH-TAVR trial, and this be discussed at our multidisciplinary aortic valve meeting. She also needs to meet our surgeons to formally define her operative risk for AVR. Jeremias Maravilla MD, PhD Clinical Staff [facility] Department of Cardiovascular Medicine Heart and Vascular [facility] Desk [facility] [place] [address] Office I personally interviewed, confirmed and edited the above information as obtained by others. CONTACT INFORMATION: MARY Observed: 06/27/2018 Status: COMPLETED Source: [place] 9:15 AM [facility] REPOSITORY Office Visit (CATHMN) GABBI ROLLE ([id number]) 1945 F Date Time Provider Department 06/27/18 9:15 AM JEREMIAS MARAVILLA) CATHMN During your visit today, we recorded the following information about you: Pulse Blood pressure Weight Height 67/minute 140/82 140.6 kg 1.702 m Jeremias Maravilla MD 06/27/2018 11:28 AM Signed [facility] Department of Cardiovascular Medicine SECTION OF INTERVENTIONAL CARDIOLOGY OUTPATIENT VISIT DATE June 27, 2018 OUTPATIENT VISIT TYPE NEW PRIMARY CARE PHYSICIAN: Sara Zarate, CARL [address] [facility] [address] [place] [address] REFERRING PHYSICIAN: Niraj Raymundo MD ([facility]) [address] [place], [place] [address] [facility] [address] CHIEF COMPLAINT: TAVR evaluation HISTORY OF PRESENT ILLNESS: Mrs. Rolle is a delightful and independent 73 year old woman from near [place] who presents today with her for ANTWON evaluation. She is able to undertake all of her ADLs and does not currently have much in the way of symptoms. However earlier this year she was in marked right heart failure as a result of severe pulmonary hypertension which perhaps has stemmed from being chronically hypoxemic secondary to obstructive sleep apnea hypopnea syndrome. Aggressive diuresis helped resolve her dyspnea and right heart failure and she is now feeling a lot better. She denies any angina or syncope. Her other chief medical issues pertain to chronic atrial fibrillation and the inability to tolerate in the past systemic anticoagulation. She's had recurrent GI bleeding over a number of years and has in total received nearly 20 units of intravenous blood products. More recently in March this year she underwent coil embolization to a colonic artery and reassuringly she does not describe any hematochezia or melena since then. I'm led to believe her last hemoglobin was stable at 10g/dL last month. 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 Her serial echocardiography is have clearly demonstrated progressive aortic stenosis to the extent that it is now severe in nature. The mean transaortic gradient is 43 mmHg with a calculated ALONSO of 0.67 cm?. Her LVEF was preserved at 65%. RV is severely dilated in association with severe pulmonary hypertension. She has mild MR and moderate plus TR. Her coronary angiogram performed in March 2017 did not show any significant coronary artery disease. Her peak to peak transaortic gradient was concordant with her echo findings ant 44 mmHg. Her mean invasive pulmonary artery pressure was recorded at 67 mmHg. NURSING INTAKE: PMx: -DM -chronic afib -CHF-- on lasix -HLD -HTN -pul HTN -CKD III -recurrent GIB-- hospitalized 5x since spring requiring a total of 19 units of blood and still on IV iron infusions (right medi-port). Ms. Rolle is a 73 year old female here today for cardiac evaluation for a aortic stenosis and possible TAVR. Since the spring she has been hospitalized a total of 5 times for a GIB requiring a total of 19 units of blood. A subcutaneous port was placed for continuing IV iron infusion. No GIB since. Admission in December for SOB and FVO, diuresed and discharged with improvement of SOB. At a follow up apointment in April with her local software requirements engineer Dr. Niraj Raymundo ordered an echo that showed mod , EF 55%, stage III systolic dysfunction, mod MR, mod-severe TR, and pulmonary systolic pressure of 75 mmHg. Underwent a subsequent MANA for further evaluation. Her local software requirements engineer consulted her here for TAVR evaluation. She states that she has had an improvement of her SOB since being diuresed but she continues to have some mild SOB when walking long distances. She denies chest pain, had a right and left cath in March 2017 to evaluate her pulmonary hypertension. She denies chest pain, dyspnea on exertion, orthopnea, PND, palpitations, lightheadedness, syncope, claudication, cough and wheezing. Diet / Nutrition: Low salt, low fat, low sugar Weight: Stable Exercise: No 8. Coronary Angio -LVEF 65% -RA Assessment: --- PA 107/40 67 --- RV 95/0 11 --- RA 21 -LM: Normal -LAD: mild luminal irregularities less than 30% -LCx: mod luminal irregularities up to 50% -RCA mild luminal irregularities less than 30% 9.14.2017 Echo Summary -Normal LV size -Mod concentric LV hypertrophy -LV systolic function is normal -EF 55% -Severe (stage III) diastolic dysfunction -Mild-mod eccentric mitral valve insufficiency -Severe pulmonary HTN -Severe -Mild aortic valve insufficiency 10..2017 MANA Summary -Normal LV size -LV systolic function normal -EF 60% -RA os severely enlarged -Mod focal aortic valve calcification -Mod -Mod reduction in aortic cusp seperation PAST MEDICAL HISTORY Diagnosis Date - Anemia - CAD (coronary artery disease) - CHF (congestive heart failure) ([facility]) - Chronic a-fib (HCC) - CKD (chronic kidney disease), stage III ([facility]) - DM (diabetes mellitus) ([facility]) - GI bleed 2018 reccurrent -- hospitalized 5x since spring requiring a total of 19 units of blood and IV iron infusions. - HLD (hyperlipidemia) - HTN (hypertension) - NSTEMI (non-ST elevated myocardial infarction) ([facility]) 2017 - Pulmonary HTN (HCC) PAST SURGICAL HISTORY Procedure Laterality Date - APPENDECTOMY - FOOT SURGERY HX right - HYSTERECTOMY SOCIAL HISTORY Social History Substance Use Topics - Smoking status: Not on file - Smokeless tobacco: Not on file - Alcohol use Not on file FAMILY HISTORY Problem Relation Age of Onset - Cervical Cancer Mother - Diabetes Father - Ischemic Heart Disease Father - Heart Attack Father - other (Polio) Father - Heart Brother valve problem ALLERGIES: ALLERGIES No Known Allergies MEDICATIONS: budesonide-formoterol (SYMBICORT) 160-4.5 mcg/actuation inhaler Inhale 2 Puffs as instructed once daily. furosemide (LASIX) 40 mg tablet Take 40 mg by mouth once daily. potassium chloride (K-TAB) 10 mEq tablet Take 10 mEq by mouth once daily. pantoprazole DR (PROTONIX) 40 mg tablet Take 40 mg by mouth once daily. metoprolol tartrate, short acting, (LOPRESSOR) 100 mg tablet Take 100 mg by mouth twice daily. rOPINIRole (REQUIP) 0.25 mg tablet Take 0.25 mg by mouth once daily. pravastatin (PRAVACHOL) 80 mg tablet Take 80 mg by mouth once daily. REVIEW OF SYSTEMS: GENERAL: no fever, no chills and no change in weight HEENT: no headaches, no hearing loss, no difficulty swallowing SKIN: no rashes, no lesions and no ulcers RESPIRATORY: SEE HPI CARDIOVASCULAR: See HPI GASTROINTESTINAL: no nausea and no vomiting GENITOURINARY: frequency MUSCULOSKELETAL: joint pain NEUROLOGIC: no numbness and no tingling HEMATOLOGY: anemia ENDOCRINE: cold or heat intolerance and diabetes PSYCH: no sleep disturbance and no mood disorders PHYSICAL EXAMINATION: BP 140/82 Pulse 67 Ht 5' 7 (1.70m) Wt 310 lb (140.6kg) SpO2 96% BMI 48.54 kg/(m2). General:obese Skin:warm Head/Eyes:PERRLA and EOM's intact Mouth:fair dentition Neck:no JVD, no carotid bruits Lungs:clear to auscultation and no rales Heart:S1, S2/P2 is loud with a murmur consistent with severe aortic stenosis PV Pulses:pulses intact Abdomen:soft, firm, round, non-tender Extremities:edema 1+ bilateral Edema Scale:2+ CARDIOVASCULAR MEDICINE TESTING: No Cardiovascular testing perfomed today. I have personally reviewed the Echocardiogram and Cardiac Catheterization/Percutaneous Coronary Intervention (PCI) (results as described above). IMPRESSION: Mrs. Rolle is a 73 year old female with severe aortic stenosis in the context of chronic atrial fibrillation, severe pulmonary hypertension and recent right heart failure. She's had recurrent lower GI bleeds however these have settled since a recent mesenteric artery coil embolization procedure. Hemoglobin is now stable at 10. She has chronic kidney disease with a baseline creatinine of around 2.5. PLAN AND RECOMMENDATIONS: I don't feel strongly about repeating coronary angiography given her abnormal baseline renal function and relatively normal coronary angiogram findings from a year ago. She will have a noncontrast CT scan to assess her anatomy although we will need to perform MR angiography to better assess her annular dimensions. She may be a candidate for our WATCH-TAVR trial, and this be discussed at our multidisciplinary aortic valve meeting. She also needs to meet our surgeons to formally define her operative risk for AVR. Jeremias Maravilla MD, PhD Clinical Staff [facility] Effie [facility] Department of Cardiovascular Medicine Heart and Vascular [facility] Desk [address] [place] [address] Office I personally interviewed, confirmed and edited the above information as obtained by others. CONTACT INFORMATION: Referring Provider: NIRAJ RAYMUNDO [[id number]] Allergies As of Date: 06/27/2018 (No Known Allergies) Date Reviewed: 06/27/2018 Reviewed by: Jeremias () MD Renita - Fully Assessed Primary Visit Diagnosis:Nonrheumatic aortic valve stenosis [I35.0] Other Visit Diagnoses:Biventricular heart failure (HCC) [I50.82] Atrial fibrillation, chronic (HCC) [I48.2] Chronic GI bleeding [K92.2] Anemia due to chronic blood loss [D50.0] Prescriptions as of 06/27/2018 Sig: BUDESONIDE-FORMOTEROL HFA 160* Inhale 2 Puffs as instructed * FUROSEMIDE 40 MG TABLET Take 40 mg by mouth once greg* POTASSIUM CHLORIDE ER 10 MEQ * Take 10 mEq by mouth once patrick* PANTOPRAZOLE 40 MG TABLET,DEL* Take 40 mg by mouth once greg* METOPROLOL TARTRATE 100 MG TA* Take 100 mg by mouth twice da* ROPINIROLE 0.25 MG TABLET Take 0.25 mg by mouth once da* PRAVASTATIN 80 MG TABLET Take 80 mg by mouth once greg* HYDRALAZINE 25 MG TABLET Take 25 mg by mouth twice patrick* CHOLECALCIFEROL (VITAMIN D3) * Take 2,000 Units by mouth onc* MAGNESIUM 250 MG TABLET Take 250 mg by mouth once patrick* CALCIUM CITRATE ORAL Take by mouth once daily. MULTIVITAMIN ORAL Take by mouth once daily. COENZYME Q10 10 MG CAPSULE Take by mouth twice daily. SILDENAFIL (ANTIHYPERTENSIVE)* Take 1 tablet by mouth three * AMOXICILLIN 875 MG TABLET Take 1 tablet by mouth once d* Problem List As Of Date: 06/27/2018 (None) Encounter Status:Closed by JEREMIAS MARAVILLA MD on 06/27/18 RENAL PROFILE Collected: 06/26/2018 Status: F Source: [place]UDIA 3:08 PM [facility] REPOSITORY TYPE CODE TESTS RESULT OUT OF RANGE REFERENCE UNITS LAB L501.0100 74-106 mg/dL Normal GLU 104 Result Comment: Fasting Glucose result from 100 to 125 mg/dL suggests IMPAIRED HOMEOSTASIS per A.D.A. criteria. Please note revised GLUCOSE reference range effective 2017. LAB L501.1000 7-18 mg/dL High BUN 37 LAB L501.1100 0.55-1.02 mg/dL High CREAT,SERUM 1.73 Result Comment: The validity of the calculated GFR AND GFRAA in patients over 70 years has not been determined. Clinical correlation is essential. LAB L501.1110 >60 mL/min Low EST GFR 31 Result Comment: Non- GFR Calc LAB L501.1115 >60 mL/min Low EST GFR - AA 37 Result Comment: GFR Calc LAB L501.1255 ml/min Normal Estimated CRCL 27.32 LAB L501.1300 10-20 RATIO High BUN/CRE 21.4 LAB L501.1800 3.2-5. g/dL Normal 0 ALB 3.7 LAB L501.2200 8.5-10 mg/dL Normal .1 CA 8.9 LAB L501.2300 2.5-4. mg/dL Normal 9 PHOS 3.3 LAB L501.5300 136-14 mmol/L Normal 5 NA 143 LAB L501.5600 3.5-5. mmol/L Normal 1 K 4.1 LAB L501.5900 98-107 mmol/L High CL 109 LAB L501.6100 21.0-3 mmol/L Normal 2.0 CO2 27.0 Performed By: #### L500.3600 #### [facility] [address] [place], [place], [address] CBC W/DIFF, AUTOMATED Collected: 06/26/2018 Status: F Source: CLAUDIA 3:06 PM [facility] REPOSITORY Order Comment: Reason for Laboratory Test . TYPE CODE TESTS RESULT OUT OF RANGE REFERENCE UNITS LAB L100.1000 4.4-11.0 K/mm3 Normal WBC 5.5 LAB L100.1200 4.2-5.4 M/mm3 Low RBC 3.61 LAB L100.1300 12.0-15.0 g/dl Low HGB 10.3 LAB L100.1400 37-47 % Low HCT 33.9 LAB L100.1500 81-99 fL Normal MCV 93.9 LAB L100.1600 27.0-32.0 pg Normal MCH 28.5 LAB L100.1700 32-36 g/gl Low MCHC 30.4 LAB L100.1810 11.6-14.6 % High RDW CV 15.6 LAB L100.1820 35.1-43.9 fl High RDW SD 53.3 LAB L100.1900 150-450 K/mm3 Normal PLT 161 LAB L100.2000 6.2-12.0 fl High MPV 12.4 LAB L100.2100 47-70 % High NEUT% 75.2 LAB L100.2200 19-41 % Low LY% 16.1 LAB L100.2300 0-10 % Normal MONO% 6.3 LAB L100.2400 0-5 % Normal EO% 2.2 LAB L100.2500 0-1 % Normal BASO% 0.2 LAB L100.2550 0.0-0.9 % Normal IM GRAN % 0.000 Result Comment: IG% - Immature Granulocytes (promyelocytes, myelocytes and metamyelocytes) > 1% indicates that a LEFT SHIFT is Present. LAB L100.2620 2.0-7.7 X10 3/uL Normal Absolute Neut 4.2 LAB L100.2720 0.83-4.51 X10 3/ul Normal Absolute Lymph 0.89 Performed By: #### L100.0100 #### [facility] [address] [place], [place], [address] IRON+IRON BINDING Collected: 06/26/2018 Status: F Source: CLAUDIA CAPACITY 3:06 PM [facility] REPOSITORY Order Comment: Reason for Laboratory Test . TYPE CODE TESTS RESULT OUT OF RANGE REFERENCE UNITS LAB L503.6075 250-450 ug/dL TIBC Normal 320 LAB L503.6150 50-170 ug/dL Low IRON 45 LAB L503.6250 15.0-55.0 % Low IRON SATURATION 14.1 Performed By: #### L503.6030, L503.6550 #### [facility] [address] [place], [place], [address] FERRITIN Collected: 06/26/2018 Status: F Source: CLAUDIA 3:06 PM [facility] REPOSITORY Order Comment: Reason for Laboratory Test . TYPE CODE TESTS RESULT OUT OF RANGE REFERENCE UNITS LAB L503.6550 8-252 ng/mL Normal FERRITIN 66 Performed By: #### L503.6030, L503.6550 #### [facility] [address] [place], [place], [address] URGENT CARE VISIT Observed: 06/22/2018 Status: F Source: CLAUDIA REPORT 2:01 PM [facility] REPOSITORY [facility] [address] [place] [address] 6 [place] [address] OFFICE VISIT Date of Service: 06/22/18 MR#: [id number] Acct: [id number] Name: GABBI ROLLE Rep #: [id number] : 1945 Provider: BROOK Maloney Age/Sex: 73/F Location[place] [facility] Status: Signed with Addenda ADDENDUM by BROOK [...] She is taking Robitussin and using a Phyllis pot. ROS Const Constitutional: Positive for headache(s) ENT ENT: Positive for facial pain, sinus pressure, sinus pain, post nasal drip and headache(s) Neuro Neurology: Positive for headache(s) Assessment AND Plan Problems 1. Acute non-recurrent maxillary sinusitis J01.00 Plan - BROOK Carter Patient was instructed to complete the amoxicillin as directed keep well-hydrated and follow-up with her primary care physician if her symptoms worsen. I advised her to keep the cardiology appointment next week. Medications New: 06/22/18 1401 <Electronically signed by Chance DOE> Date Chance Maloney cc: * Signed Intake Intake Visit Reasons: SINUS INFECTION [...] [History Confirmed 05/27/18] Ipratropium/Albuterol Sulfate [Combivent Respimat Inhal [place]] 2 puff IH Q4H PRN PRN 01/03/18 [...] PFSH Medical History Atherosclerotic heart disease of [place] coro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 pectoris (Chronic) Chronic [...] 1351 <Electronically signed by Chance DOE> Date Chance DOE Cosigner Signature: Date (if applicable) CC: BASIC METABOLIC Collected: 06/04/2018 Status: F Source: CLAUDIA PROFILE (BMP) 11:14 AM [facility] REPOSITORY TYPE CODE TESTS RESULT OUT OF RANGE REFERENCE UNITS LAB L501.0100 74-106 mg/dL Normal GLU 100 Result Comment: Fasting Glucose result from 100 to 125 mg/dL suggests IMPAIRED HOMEOSTASIS per A.D.A. criteria. Please note revised GLUCOSE reference range effective 2017. LAB L501.1000 7-18 mg/dL High BUN 34 LAB L501.1100 0.55-1.02 mg/dL High CREAT,SERUM 1.75 Result Comment: The validity of the calculated GFR AND GFRAA in patients over 70 years has not been determined. Clinical correlation is essential. LAB L501.1110 >60 mL/min Low EST GFR 30 Result Comment: Non- GFR Calc LAB L501.1115 >60 mL/min Low EST GFR - AA 36 Result Comment: GFR Calc LAB L501.1255 ml/min Normal Estimated CRCL 27.01 LAB L501.1300 10-20 RATIO Normal BUN/CRE 19.4 LAB L501.2200 8.5-10 mg/dL Normal .1 CA 9.6 LAB L501.5300 136-14 mmol/L Normal 5 NA 141 LAB L501.5600 3.5-5. mmol/L Normal 1 K 4.4 LAB L501.5900 98-107 mmol/L Normal CL 105 LAB L501.6100 21.0-3 mmol/L Normal 2.0 CO2 28.0 LAB L501.6200 5-15 Normal GAP 8 Performed By: #### L500.2500 #### [facility] [address] [place], [address] PTHIN Collected: 06/04/2018 Status: F Source: [place] 11:14 AM [facility] REPOSITORY TYPE CODE TESTS RESULT OUT OF RANGE REFERENCE UNITS LAB L509.1000 18.4-80.1 pg/mL High PTHIN 127.7 Performed By: #### L509.1000 #### [facility] [address] [place], [address] ONCOLOGY VISIT REPORT Observed: 05/27/2018 Status: F Source: [place] 2:11 PM [facility] REPOSITORY [facility] [address] [place] [address]. [place] [address] OFFICE VISIT Date of Service: 05/27/18 1342 MR#: [id number] Acct: [id number] Name: GABBI ROLLE Alexandro Rep #: [id number] : 1945 From: Halley Khan MD Age/Sex: 73/F Location: [facility] Status: Signed - Problem List (1) Anemia Status: Chronic Qualifiers: Anemia type: unspecified type Qualified Code(s): D64.9 - Anemia, unspecified (2) Iron deficiency [...] held in 2018) and chronic and episodic acute GI blood loss (GI nuclear scan January 2018 reported:2 separate foci of active extravasation (active bleeding) of radiotracer located in the stomach and in the upper ascending colon.) She had been on oral iron supplement averaging 1-3 [...] and was urgently transferred to [facility] where she underwent a nuclear medicine GI blood loss imaging followed by angiography and embolization of a bleeding artery. - Past Medical/Social History Past Medical History Past Medical History: Anemia,Bleeding disorder,Blood transfusion, Diabetes mellitus,Diverticulitis,Edema,GI bleed, Heart disease,Hyperlipidemia,Hypertension,Liver disease,Obesity,Osteopenia,Pneumonia, Postmenopausal,Vitamin D deficiency,Fatigue Other Past Medical History: PULMONARY HYPERTENTION UTI (SEPTIC) GIB Past Surgical History Surgical: Appendectomy,Hysterectomy Other Surgical History: RIGHT FOOT SURGERY 1985 Family History Paternal Past Medical History: Heart disease Maternal Past Medical History: Unknown Maternal History of Cancer: Uterine cancer Social History Social History: No changes Smoking Status Never smoker Review of Systems Constitutional:: Reports: Weakness, Fatigue, - - Overall I feel better since the last embolization Cardiovascular:: Reports: Dyspnea on exertion Respiratory: Reports: Shortness of breath upon exertion Gastrointestinal:: Reports: Melena - Stools were dark on 2 days in the past month Genitourinary: Denies: Hematuria Neurological:: Denies: Headache, Dizziness, Visual changes, Tinnitus, Hearing loss Vital Signs Height 5 ft 7 in Weight: 147.508 kg Weight in Pounds 325.2 lbs Pulse Ox 94 - Physical Exam General: Alert, Oriented x3, No apparent distress, - - Morbidly Obese. Laboratory Data: Laboratory Tests RBC Hgb Hct 35.7 L Iron Saturation 5.6 L 12.8 L Ferritin 46 RBC [...] L Hct 18.8 L Iron Saturation 26.7 Ferritin 109 RBC Hgb 6.4 L 8.5 L [...] GI blood loss Despite oral iron supplementation (half-way), . Patient was transfused with packed red [...] Q4H PRN PRN 01/03/18 [Combivent Respimat Inhal [place]] Furosemide [Lasix] 40 mg PO BID 01/15/18 Primary Care Provider: Sara Zarate Referring Provider: Halley Khan MD 05/27/18 1411 <Electronically signed by Halley Khan MD> Date Halley Khan MD Cosigner Signature: Date (if applicable) CC: CARDIOLOGY VISIT Observed: 05/26/2018 Status: F Source: [place] REPORT 3:41 PM [facility] REPOSITORY [facility] [address] [place] [address]. [address] [place] [address] OFFICE VISIT Date of Service: 05/26/18 MR#: [id number] Acct: [id number] Name: GABBI ROLLE Rep #: [id number] : 1945 Provider: Niraj Raymundo MD Age/Sex: 73/F Location: [facility] [place] Status: Signed HPI [facility] Chief Complaint: Follow up Details: GABBI ROLLE, is a 73 F who presents to the office today for a follow-up visit. She is a lady with a history of chronic persistent atrial fibrillation, valvular heart disease with mitral valve regurgitation and aortic stenosis and minimal coronary artery disease. She also has a history of severe, pulmonary hypertension, obesity, and obstructive sleep apnea. She has had recurrent GI bleeds unfortunately and has been admitted to the hospital 5 times since the spring. She has had a total of approximately 19 units of blood transfusion as well as has been getting iron infusions. She was recently taken off all her anticoagulation due to the recurrence of the above. She has had no dizziness or lightheadedness no maggie syncopal episodes. She continues to see the digital associate for follow- up of her blood work. She presented to [...] Body Mass Index (BMI) 49.6 05/26/18 Blood Pressure 134/66 H 05/26/18 Respiratory Rate 18 05/26/18 Pulse Rate 66 Intake Visit Reasons: f/up to [facility]NA Allergies No Known Allergies Allergy (Verified 05/26/18 14:57) Medications Ascorbic Acid [Vitamin C] 1,000 mg PO BID 11/18/17 [History Confirmed 05/26/18] Calcium Citrate 500 mg PO BID 11/18/17 [History Confirmed 05/26/18] Cholecalciferol (Vitamin D3) [Vitamin D3] 2,000 unit PO BID 11/18/17 [History Confirmed 05/26/18] Magnesium Oxide [Magnesium] 400 mg PO DAILY 11/18/17 [History Confirmed 05/26/18] Metoprolol Tartrate [Lopressor (beta long)] 100 mg PO BID 11/18/17 [History Confirmed 05/26/18] Multivitamin [Daily Multiple Vitamin] 1 ea PO DAILY 11/18/17 [History Confirmed 05/26/18] Pravastatin Sodium 80 mg PO QHS 11/18/17 [History Confirmed 05/26/18] Ropinirole HCl [Requip] 0.25 mg PO QHS 11/18/17 [History Confirmed 05/26/18] Sildenafil Citrate [Revatio] 20 mg PO TID 11/18/17 [History Confirmed 05/26/18] Ubidecarenone [Coenzyme Q-10] 100 mg PO DAILY 11/18/17 [History Confirmed 05/26/18] hydrALAZINE [Apresoline] 25 mg PO BID 11/18/17 [History Confirmed 05/26/18] Ipratropium/Albuterol Sulfate [Combivent Respimat Inhal [place]] 2 puff IH Q4H PRN PRN 01/03/18 [History Confirmed 05/26/18] Furosemide [Lasix] 40 mg PO BID 01/15/18 [History Confirmed 05/26/18] Potassium Chloride [K-Dur] 40 meq PO DAILY #60 tab 01/27/18 [Rx Confirmed 05/26/18] pantoprazole 40 mg tablet,delayed release 40 mg PO BID 02/13/18 [History Confirmed 05/26/18] Budesonide/Formoterol Fumarate [Symbicort 160-4.5 Mcg Inhaler] 2 puff IH BID 02/23/18 [History Confirmed 05/26/18] febuxostat 80 mg tablet 80 mg PO PRN PRN 04/29/18 [History Confirmed 05/26/18] PFS Medical History Atherosclerotic heart disease of [place] coro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 pectoris (Chronic) Chronic [...] frequent falls, headache(s), blurry vision, double vision, dizziness, lightheadedness, orthostatic symptoms, near syncope, syncope or lack of coordination Omer Hematologic/Lymphatic: Negative for easy bruising or easy bleeding Endo Endo: Negative for fatigue, excessive sweating or increased thirst/drinking Psych Psych: Negative [...] membranes and turbinates normal, nares normal, septum normal, no nasal discharge Face and Sinus: face symmetric Mouth: oral mucosae normal, tongue normal, oropharynx normal and moist mucous membranes Teeth and gingiva: dentition normal Throat: posterior oropharynx normal, tonsils normal and [...] Cardio Palpation: normal PMI Rhythm: irregular rhythm Heart sounds: S1 normal and S2 normal GI [...] the peak gradient was 72 mmHg and the mean gradient of 33 mmHg. The aortic valve area was noted to be approximately 0.7 cm square. Her cardiac catheterization a year ago demonstrated a peak to peak gradient of 50 mmHg. I have suggested to her that she should be considered for a T AVR approach prior to being considered for a traditional bioprosthetic transthoracic approach. 2. Nonrheumatic mitral (valve) insufficiency I34.0 Plan She does have a history of mitral valve disease. It appears to be moderate by transthoracic echocardiogram and moderately severe by transesophageal echocardiogram. She may need to be considered for a mitral valve repair or possibly a mitral valve clip if she is thought to be an appropriate candidate. 3. Other secondary pulmonary hypertension I27.29 Plan She does have a history of secondary pulmonary hypertension likely secondary to her aortic valve disease as well as her mitral valve disease. Her pulmonary pressures by echocardiogram were in excess of 75 mmHg and at the time of her cardiac catheterization she had demonstrated right ventricular pressures of 95 mmHg, pulmonary artery pressures of 107/40 mmHg, right atrial pressures of 21 mmHg. This was prior to diuresis. 4. Essential hypertension I10 Plan She does have a history of systemic hypertension which is under good control at the present time on her current medications. She is on hydralazine as well as metoprolol. 5. Chronic atrial fibrillation I48.2 Plan She does have chronic persistent atrial fibrillation likely secondary to valvular heart disease and hypertensive heart disease. Unfortunately she has not been able to tolerate any anticoagulation and indeed has had recurrent blood transfusions. She is therefore currently not on any anticoagulation. Recent transesophageal echocardiogram however did not demonstrate any evidence of thrombus in the left atrial appendage. She may be considered a candidate for a watchman device as well 6. Atherosclerosis of [place] coronary artery of [place] heart without angina pectoris I25.10 [facility]: 07/30/2006; 04/10/17 Plan She has minimal atherosclerotic cardiovascular [...] need to pursue any further dye related diagnostic procedures prior to her having a definitive procedure performed. Her estimated creatinine clearance is 19. 7. CKD (chronic kidney disease), stage III N18.3 Plan She does have evidence of chronic kidney disease as noted above with a recent creatinine of 2.57 and a BUN of 48 and a creatinine clearance of approximately 19. This certainly does add to her risk. 8. Anemia, unspecified type D64.9 Plan She does have a history of anemia with a hemoglobin which runs around 9-10. This appears to be her baseline. She has not had any recent bleeds as well. Had an extensive discussion with the patient and her family regarding possible modalities of care here. I did suggest that there is the possibility of a TAVR procedure to take care of the aortic valve, with or without a mitral clip procedure, and with and without a watchman device being [...] possible. 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 transplanted heart: [place] heart CKD (chronic kidney disease), stage III N18.3 Anemia, unspecified type D64.9 Anemia type: unspecified type Coding Level of Care Code Off vis,est,level 5 Diagnoses Nonrheumatic aortic (valve) stenosis I35.0 Nonrheumatic mitral (valve) insufficiency I34.0 Other secondary pulmonary hypertension I27.29 Essential hypertension I10 Hypertension type: essential hypertension Chronic atrial fibrillation I48.2 Atherosclerosis of [place] coronary artery of [place] heart without angina pectoris I25.10 [place] vs. transplanted heart: [place] heart CKD (chronic kidney disease), stage III N18.3 Anemia, unspecified type D64.9 Anemia type: unspecified type 05/26/18 1541 <Electronically signed by Niraj Raymundo MD> Date Niraj Raymundo MD Cosigner Signature: Date (if applicable) CC: Sara Zarate NP ECHO TRANSESOPHAGEAL (MANA) Observed: 05/23/2018 Status: F Source: [place] 3:13 PM [facility] REPOSITORY [facility] Cardiovascular Services [facility] [place] [address] Echo Transesophageal (MANA) 05/23/18 0924 MR#: [id number] Acct: [id number] Name: GABBI ROLLE Rep #: [id number] : 1945 73 From: Niraj Raymundo MD Attending Dr: Niraj Raymundo MD Status: REG CLI Ordering Dr: Niraj Raymundo MD Date: 05/23/18 Location: [facility] Sex: F C Admitted: Reason For Study: Aortic Stenosis Medication MANA probe passed with minimal difficulty. No complications were noted. Topex Topical [place] given X4 metered doses orally. Versed 2 [...] right ventricular systolic dysfunction. Atria Bubble contrast study negative for right to left interatrial shunt. Intact atrial septum. The left atrium is severely enlarged. No thrombus is detected in the left atrial appendage. The right atrium is severely enlarged. Mitral Valve Normal mitral valve. Moderately severe (3+) mitral valve insufficiency. Tricuspid Valve Normal tricuspid valve. Moderate (2+) tricuspid valve insufficiency. Aortic Valve Trisinus/trileaflet aortic valve. Moderate focal aortic valve calcification. Moderate aortic stenosis. Mild (1+) eccentric aortic valve insufficiency. Pulmonic Valve Normal pulmonic valve. Vessels Normal aortic root. Normal arch. The pulmonary artery is normal size. Pulmonary venous flow normal. Pericardium No pericardial effusion. Interpretation Summary Normal LV size. Left ventricular systolic function is normal. The estimated ejection fraction is 60 %. The left atrium is severely enlarged. The right atrium is severely enlarged. Moderate focal aortic valve calcification. Moderate aortic stenosis. Moderate reduction in aortic cusp seperation Ordering Physician: Niraj Raymundo Referring Physician: Niraj Raymundo V Performed By: Yanna Hankins RDCS 05/23/181511 Date Niraj Raymundo MD CC: Sara Zarate OCCUPATIONAL HYGIENIST; Niraj Raymundo MD Date Dictated: 05/23/18923 Date Transcribed: 05/23/181511 Propeller Mechanic: Signed RENAL PROFILE Collected: 05/16/2018 Status: F Source: [place] 10:47 AM [facility] REPOSITORY TYPE CODE TESTS RESULT OUT OF RANGE REFERENCE UNITS LAB L501.0100 74-106 mg/dL High GLU 116 Result Comment: Fasting Glucose result from 100 to 125 mg/dL suggests IMPAIRED HOMEOSTASIS per A.D.A. criteria. Please note revised GLUCOSE reference range effective 2017. LAB L501.1000 7-18 mg/dL High BUN 48 LAB L501.1100 0.55-1.02 mg/dL High CREAT,SERUM 2.54 Result Comment: The validity of the calculated GFR AND GFRAA in patients over 70 years has not been determined. Clinical correlation is essential. LAB L501.1110 >60 mL/min Low EST GFR 20 Result Comment: Non- GFR Calc LAB L501.1115 >60 mL/min Low EST GFR - AA 24 Result Comment: GFR Calc LAB L501.1255 ml/min Normal Estimated CRCL 18.90 LAB L501.1300 10-20 RATIO Normal BUN/CRE 18.9 LAB L501.1800 3.2-5. g/dL Normal 0 ALB 3.9 LAB L501.2200 8.5-10 mg/dL Normal .1 CA 9.3 LAB L501.2300 2.5-4. mg/dL Normal 9 PHOS 3.3 LAB L501.5300 136-14 mmol/L Normal 5 NA 141 LAB L501.5600 3.5-5. mmol/L Normal 1 K 4.8 LAB L501.5900 98-107 mmol/L High CL 108 LAB L501.6100 21.0-3 mmol/L Normal 2.0 CO2 25.0 Performed By: #### L500.3600 #### [facility] [address] [place], [address] BASIC METABOLIC Collected: 05/16/2018 Status: F Source: [place] PROFILE (BMP) 10:47 AM [facility] REPOSITORY TYPE CODE TESTS RESULT OUT OF RANGE REFERENCE UNITS LAB L501.0100 74-106 mg/dL High GLU 115 Result Comment: Fasting Glucose result from 100 to 125 mg/dL suggests IMPAIRED HOMEOSTASIS per A.D.A. criteria. Please note revised GLUCOSE reference range effective 2017. LAB L501.1000 7-18 mg/dL High BUN 48 LAB L501.1100 0.55-1.02 mg/dL High CREAT,SERUM 2.57 Result Comment: The validity of the calculated GFR AND GFRAA in patients over 70 years has not been determined. Clinical correlation is essential. LAB L501.1110 >60 mL/min Low EST GFR 19 Result Comment: Non- GFR Calc LAB L501.1115 >60 mL/min Low EST GFR - AA 23 Result Comment: GFR Calc LAB L501.1255 ml/min Normal Estimated CRCL 18.68 LAB L501.1300 10-20 RATIO Normal BUN/CRE 18.7 LAB L501.2200 8.5-10 mg/dL Normal .1 CA 9.2 LAB L501.5300 136-14 mmol/L Normal 5 NA 140 LAB L501.5600 3.5-5. mmol/L Normal 1 K 4.8 LAB L501.5900 98-107 mmol/L High CL 108 LAB L501.6100 21.0-3 mmol/L Normal 2.0 CO2 25.0 LAB L501.6200 5-15 Normal GAP 7 Performed By: #### L500.2500 #### [facility] [address] [place], [address] CBC W/DIFF, AUTOMATED Collected: 05/16/2018 Status: F Source: [place] 10:46 AM [facility] REPOSITORY Order Comment: Reason for Laboratory Test . TYPE CODE TESTS RESULT OUT OF RANGE REFERENCE UNITS LAB L100.1000 4.4-11.0 K/mm3 Normal WBC 4.6 LAB L100.1200 4.2-5.4 M/mm3 Low RBC 3.40 LAB L100.1300 12.0-15.0 g/dl Low HGB 9.7 LAB L100.1400 37-47 % Low HCT 32.2 LAB L100.1500 81-99 fL Normal MCV 94.7 LAB L100.1600 27.0-32.0 pg Normal MCH 28.5 LAB L100.1700 32-36 g/gl Low MCHC 30.1 LAB L100.1810 11.6-14.6 % High RDW CV 15.8 LAB L100.1820 35.1-43.9 fl High RDW SD 54.4 LAB L100.1900 150-450 K/mm3 Low PLT 135 LAB L100.2000 6.2-12.0 fl High MPV 12.4 LAB L100.2100 47-70 % High NEUT% 76.3 LAB L100.2200 19-41 % Low LY% 15.0 LAB L100.2300 0-10 % Normal MONO% 6.1 LAB L100.2400 0-5 % Normal EO% 2.2 LAB L100.2500 0-1 % Normal BASO% 0.4 LAB L100.2550 0.0-0.9 % Normal IM GRAN % 0.000 Result Comment: IG% - Immature Granulocytes (promyelocytes, myelocytes and metamyelocytes) > 1% indicates that a LEFT SHIFT is Present. LAB L100.2620 2.0-7.7 X10 3/uL Normal Absolute Neut 3.5 LAB L100.2720 0.83-4.51 X10 3/ul Low Absolute Lymph 0.69 Performed By: #### L100.0100, L503.6030, L503.6550 #### [facility] [address] [place], [place], [address] IRON+IRON BINDING Collected: 05/16/2018 Status: F Source: [facility] 10:46 AM [facility] REPOSITORY Order Comment: Reason for Laboratory Test . TYPE CODE TESTS RESULT OUT OF RANGE REFERENCE UNITS LAB L503.6075 250-450 ug/dL TIBC Normal 350 LAB L503.6150 50-170 ug/dL Low IRON 47 LAB L503.6250 15.0-55.0 % Low IRON SATURATION 13.4 Performed By: #### L100.0100, L503.6030, L503.6550 #### [facility] [address] [place], [address] FERRITIN Collected: 05/16/2018 Status: F Source: [place] 10:46 AM [facility] REPOSITORY Order Comment: Reason for Laboratory Test . TYPE CODE TESTS RESULT OUT OF RANGE REFERENCE UNITS LAB L503.6550 8-252 ng/mL Normal FERRITIN 55 Performed By: #### L100.0100, L503.6030, L503.6550 #### [facility] [address] [place], [address] PROTHROMBIN TIME W/INR Collected: 05/16/2018 Status: F Source: [place] 10:45 AM [facility] REPOSITORY TYPE CODE TESTS RESULT OUT OF RANGE REFERENCE UNITS LAB L300.4150 11.7-14.9 SECONDS High PROTIME 15.0 LAB L300.4200 Normal INR 1.2 Performed By: #### L300.3900, L300.4310 #### [facility] [address] [place], [address] PARTIAL THROMBOPLAST Collected: 05/16/2018 Status: F Source: [place] TIME 10:45 AM [facility] REPOSITORY TYPE CODE TESTS RESULT OUT OF REFERENCE UNITS RANGE LAB L300.4310 24.1-36.2 Seconds High PTT 44.5 Performed By: #### L300.3900, L300.4310 #### [facility] [address] [place], [address] 12 LEAD EKG PERFORMED Observed: 05/16/2018 Status: F Source: [place] [facility] 9:57 AM [facility] REPOSITORY [facility] [address] [place] [id number] 12 Lead EKG performed by [facility] 05/16/18 0957 MR#: [id number] Acct: [id number] Name: GABBI ROLLE Rep #: [id number] : 1945 72 From: Niraj Raymundo MD Attending Dr: Niraj Raymundo MD Status: DEP AMB Ordering Dr: Niraj Raymundo MD Date: 05/16/18 Location[place] [facility] Sex: F C Admitted: BMS/12 Lead EKG performed by [facility] ECG Report Interpretation Possible atrial fibrillation Low voltage -possible pulmonary disease. ABNORMAL Electronically signed on 07/31/2018 at 11:36 by Niraj Raymundo [employer] Software Version [id number] 07/31/18 1145 Date Niraj Raymundo MD CC: Sara Zarate NP Date Dictated: 05/16/18956 Date Transcribed: 05/16/18956 Propeller Mechanic: CO Signed ECHOCARDIOGRAM COMPLETE Observed: 05/03/2018 Status: F Source: [place] 2:37 PM [facility] REPOSITORY [facility] Cardiovascular Services [address] [place] [id number] Echo Complete 05/02/18 1405 MR#: [id number] Acct: [id number] Name: GABBI ROLLE Rep #: [id number] : 1945 72 From: Niraj Raymundo MD [...] impaired relaxation of left ventricle. Transmitral diastolic flow velocities suggest severe (stage 3) diastolic dysfunction. No regional wall motion abnormalities noted. Right Ventricle Normal RV size. Normal systolic function. Atria The left atrium is moderately enlarged. The right atrium is moderately enlarged. Mitral Valve Normal mitral valve. Mild-Moderate (1-2+) eccentric mitral valve insufficiency. Tricuspid Valve Normal tricuspid valve. Moderately severe (3+) tricuspid valve insufficiency. Pulmonary artery systolic pressure is 75 mmHg. Severe pulmonary hypertension. Aortic Valve Trisinus/trileaflet aortic valve. Mild focal aortic valve calcification. Peak aortic valve gradient 72 mmHg. Mean aortic valve gradient 33 mmHg. Severe aortic stenosis. Mild (1+) eccentric aortic valve insufficiency. Pulmonic Valve Normal pulmonic valve. Great Vessels Normal aortic root. The pulmonary artery is normal size. Plethoric inferior vena cava. The inferior vena cava is dilated. Pericardium/Pleural No pericardial effusion. MMode/2D Measurements AND Calculations LVIDd: 4.7 cm IVSd: 1.7 cm LVOT diam: 2.0 cm LVIDs: 3.3 cm LVPWd: 1.4 cm LVOT area: 3.0 cm2 RVDd: 5.0 cm FS: 29.9 % Ao root diam: 3.4 cm LAV(MOD-bp): 147.6 ml Aortic Valve Planimetry: 0.77 cm2 ACS: 0.70 cm LAV(MOD-bp) Indexed: 59.5 ml/m2 LA dimension: 5.1 cm LAV(MOD-sp2): 130.7 ml LAV(MOD-sp4): 152.8 ml LA A4 area: 37.5 cm2 RA A4 area: 31.8 cm2 Time Measurements MV dec time: 0.18 sec Doppler Measurements AND Calculations MV E max pavel: 136.7 cm/sec Lat Peak E' Pavel: 11.9 [...] V2 mean: 74.9 cm/sec MV dec slope: 614.1 cm/sec2 Ao V2 mean: 264.2 cm/sec MV [...] estimated ejection fraction is 55 %. Transmitral diastolic flow velocities suggest severe (stage 3) diastolic dysfunction Mild-Moderate (1-2+) eccentric mitral valve insufficiency. Severe pulmonary hypertension. Severe aortic stenosis. Mild (1+) eccentric aortic valve insufficiency. Ordering Physician: Niraj Raymundo Referring Physician: Niraj Raymundo V Performed By: Dany Triplett RCS 05/03/18 1436 Date Niraj Raymundo MD CC: Sara Zarate OCCUPATIONAL HYGIENIST; Niraj Raymundo MD Date Dictated: 05/02/18 1405 Date Transcribed: 05/03/18 1436 Propeller Mechanic: Signed ONCOLOGY VISIT REPORT Observed: 04/29/2018 Status: F Source: [place] 2:55 PM [facility] REPOSITORY [facility] [address] [place] [address] OFFICE VISIT Date of Service: 04/29/18 1417 MR#: [id number] Acct: [id number] Name: GABBI ROLLE Rep #: [id number] : 1945 From: Halley Khan MD Age/Sex: 72/F Location: [facility] Status: Signed - Problem List (1) Anemia Status: Chronic Qualifiers: Anemia type: unspecified type Qualified Code(s): D64.9 - Anemia, unspecified (2) Iron deficiency [...] held in 2018) and chronic and episodic acute GI blood loss (GI nuclear scan January 2018 reported:2 separate foci of active extravasation (active bleeding) of radiotracer located in the stomach and in the upper ascending colon.) She had been on oral iron supplement averaging 1-3 [...] and was urgently transferred to [facility] where she underwent a nuclear medicine GI blood loss imaging followed by angiography and embolization of a bleeding artery. - Past Medical/Social History Past Medical History Past Medical History: Anemia,Bleeding disorder,Blood transfusion, Diabetes mellitus,Diverticulitis,Edema,GI bleed, Heart disease,Hyperlipidemia,Hypertension,Liver disease,Obesity,Osteopenia,Pneumonia, Postmenopausal,Vitamin D deficiency,Fatigue Other Past Medical History: PULMONARY HYPERTENTION UTI (SEPTIC) GIB Past Surgical History Surgical: Appendectomy,Hysterectomy Other Surgical History: RIGHT FOOT SURGERY 1985 Family History Paternal Past Medical History: Heart disease Maternal Past Medical History: Unknown Maternal History of Cancer: Uterine cancer Social History Social History: No changes Smoking Status Never smoker Review of Systems Constitutional:: Reports: Weakness - Much less then prior, Fatigue Cardiovascular:: Reports: Ankle swelling, Dyspnea on exertion, Peripheral [...] Soft, Non-tender Extremities:: Edema - Gross nonpitting indurated Neurological: Neuro grossly intact Skin:: Negative for: Lesions, Rash, Petechiae, Ecchymosis Psychiatric:: Appropriate affect, Euthymic Lymphatics:: Negative for: Cervical lymphadenopathy, Supraclavicular lymphadenopathy Laboratory Data: Laboratory Tests Iron [...] GI blood loss 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 Patient was transfused with packed red [...] Q4H PRN PRN 01/03/18 [Combivent Respimat Inhal [place]] Furosemide [Lasix] 40 mg PO BID 01/15/18 Primary Care Provider: Sara Zarate Referring Provider: Halley Khan MD 04/29/18 5144 <Electronically signed by Halley Khan MD> Date Halley Khan MD Cosigner Signature: Date (if applicable) CC: CARDIOLOGY VISIT Observed: 04/29/2018 Status: F Source: [place] REPORT 1:55 PM [facility] REPOSITORY [facility] [address] [address] [place] [address] OFFICE VISIT Date of Service: 04/29/18 MR#: [id number] Acct: [id number] Name: GABBI ROLLE Rep #: [id number] : 1945 Provider: Niraj Raymundo MD Age/Sex: 72/F Location[place] [facility] Status: Signed HPI [facility] Chief Complaint: Follow up Details: GABBI ROLLE, is a 72 F who presents to the office today for a follow-up visit. She is a lady with a history of chronic persistent atrial fibrillation, valvular heart disease with mitral valve regurgitation and aortic stenosis and minimal coronary artery disease. She also has a history of pulmonary hypertension obesity, and obstructive sleep apnea. She has had recurrent GI bleeds unfortunately and has been admitted to the hospital 5 times since the spring. She has had a total of approximately 19 units of blood transfusion as well as has been getting iron infusions. She was recently taken off all her anticoagulation due to the recurrence of the above. She has had no dizziness or lightheadedness no maggie syncopal episodes. She continues to see the digital associate for follow- up of her blood work. Her physical exam today demonstrates clear lung rodriguez mild pallor regular rate and rhythm a 2/6 harsh systolic murmur noted left sternal border and no pedal edema. Intake Vital Signs04/29/18 Height 5 ft 7 in 04/29/18 Weight: 325 lb 04/29/18 Body Mass Index (BMI) 50.8 Intake Visit Reasons: 6 M FU (pt r/s from - due to inpatient) Allergies No Known Allergies Allergy (Verified 04/02/18 13:49) Medications Ascorbic Acid [Vitamin C] 1,000 mg PO BID 11/18/17 [History Confirmed 04/29/18] Calcium Citrate 500 mg PO BID 11/18/17 [History Confirmed 04/29/18] Cholecalciferol (Vitamin D3) [Vitamin D3] 2,000 unit PO BID 11/18/17 [History Confirmed 04/29/18] Lisinopril [Zestril] 10 mg PO DAILY 11/18/17 [History Confirmed 04/29/18] Magnesium Oxide [Magnesium] 400 mg PO DAILY 11/18/17 [History Confirmed 04/29/18] Metoprolol Tartrate [Lopressor (beta long)] 100 mg PO BID 11/18/17 [History Confirmed 04/29/18] Multivitamin [Daily Multiple Vitamin] 1 ea PO DAILY 11/18/17 [History Confirmed 04/29/18] Pravastatin Sodium 80 mg PO QHS 11/18/17 [History Confirmed 04/29/18] Ropinirole HCl [Requip] 0.25 mg PO QHS 11/18/17 [History Confirmed 04/29/18] Sildenafil Citrate [Revatio] 20 mg PO TID 11/18/17 [History Confirmed 04/29/18] Ubidecarenone [Coenzyme Q-10] 100 mg PO DAILY 11/18/17 [History Confirmed 04/29/18] hydrALAZINE [Apresoline] 25 mg PO BID 11/18/17 [History Confirmed 04/29/18] Ipratropium/Albuterol Sulfate [Combivent Respimat Inhal [place]] 2 puff IH Q4H PRN PRN 01/03/18 [History Confirmed 04/29/18] Furosemide [Lasix] 40 mg PO BID 01/15/18 [History Confirmed 04/29/18] Potassium Chloride [K-Dur] 40 meq PO DAILY #60 tab 01/27/18 [Rx Confirmed 04/29/18] pantoprazole 40 mg tablet,delayed release 40 mg PO BID 02/13/18 [History Confirmed 04/29/18] Budesonide/Formoterol Fumarate [Symbicort 160-4.5 Mcg Inhaler] 2 puff IH BID 02/23/18 [History Confirmed 04/29/18] febuxostat 80 mg tablet 80 mg PO PRN PRN 04/29/18 [History Confirmed 04/29/18] PFSH Medical History Atherosclerotic heart disease of [place] coro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 pectoris (Chronic) Chronic [...] ROS Const Const: Negative for fatigue, weakness, night sweats, excessive sweating, frequent falls, headache(s) or daytime sleepiness Eyes Eyes: Negative for loss of peripheral vision, transient loss of vision, blind spots, double vision or blurry vision ENT ENT: Negative for headache(s), dizziness, balance problems, Nosebleed/epistaxis, tongue swelling or lip swelling Cardio Chest Pain: No Palpitations: No Edema: None Muscle aches with walking: None Resp Respiratory: Negative for SOB at rest, [...] blurry vision or lack of coordination Omer Hematologic/Lymphatic: Negative for easy bruising or easy bleeding Endo Endo: Negative for fatigue, excessive sweating, cold intolerance, heat intolerance, increased thirst/drinking or hair loss Psych Psych: Negative for anxiety or depression Allergy Allergy/Immunology: Negative for throat swelling, Negative for tongue swelling, Negative for hives, Negative for rash, Negative for lip swelling Cardiology Exam Const Appearance: cooperative, healthy appearing, well developed, well groomed and no acute distress Nutritional Appearance: well nourished and average body habitus Orientation: alert, awake and oriented x3 Head Head: normal to inspection, normocephalic and atraumatic Ears: hearing grossly normal bilaterally and external ears normal Nose: external nose normal, nasal mucous membranes and turbinates normal, nares normal, septum normal, no nasal discharge Face and Sinus: face symmetric Mouth: oral mucosae normal, tongue normal, oropharynx normal and moist mucous membranes Teeth and gingiva: dentition normal Throat: posterior oropharynx normal, tonsils normal and [...] does have a history of chronic persistent atrial fibrillation her ventricular response rate is well controlled she will remain on her current medications, with the beta-long but no anticoagulation. She tells me that an echocardiogram may have been performed at the outside hospital and this [...] unspecified vessel or lesion type, unspecified whether [place] or transplanted heart I25.10 Plan She does have minimal coronary artery disease per cardiac catheterization in March 2017. With the denial of any chest arm or jaw discomfort we will continue to monitor her closely. With her recurrent anemia she has not developed any further chest pain and that is a good sign. Orders Orders: 4. Nonrheumatic aortic (valve) stenosis I35.0 Plan She does have a history of aortic [...] history of pulmonary hypertension which is likely secondary to mitral and aortic valve disease we will repeat her echocardiogram for reassessment of the above. 6. Gastrointestinal hemorrhage, unspecified gastrointestinal hemorrhage type K92.2 Plan This also for GI bleeds is perplexing she has [...] unspecified vessel or lesion type, unspecified whether [place] or transplanted heart I25.10 Coronary Disease-Associated Artery/Lesion type: unspecified vessel or lesion type [place] vs. 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 transplanted heart: unspecified whether [place] or transplanted heart Associated angina: angina presence unspecified Nonrheumatic aortic (valve) stenosis I35.0 Other secondary pulmonary hypertension I27.29 Gastrointestinal hemorrhage, unspecified gastrointestinal hemorrhage type K92.2 GI bleed type/associated pathology: unspecified gastrointestinal hemorrhage type 04/29/18 1355 <Electronically signed by Niraj Raymundo MD> Date Niraj Raymundo MD Cosigner Signature: Date (if applicable) CC: Sara Zarate NP RENAL PROFILE Collected: 04/23/2018 Status: F Source: [place] 2:16 PM [facility] REPOSITORY TYPE CODE TESTS RESULT OUT OF RANGE REFERENCE UNITS LAB L501.0100 74-106 mg/dL High GLU 111 Result Comment: Fasting Glucose result from 100 to 125 mg/dL suggests IMPAIRED HOMEOSTASIS per A.D.A. criteria. Please note revised GLUCOSE reference range effective 2017. LAB L501.1000 7-18 mg/dL High BUN 47 LAB L501.1100 0.55-1.02 mg/dL High CREAT,SERUM 2.28 Result Comment: The validity of the calculated GFR AND GFRAA in patients over 70 years has not been determined. Clinical correlation is essential. LAB L501.1110 >60 mL/min Low EST GFR 22 Result Comment: Non- GFR Calc LAB L501.1115 >60 mL/min Low EST GFR - AA 27 Result Comment: GFR Calc LAB L501.1255 ml/min Normal Estimated CRCL 21.05 LAB L501.1300 10-20 RATIO High BUN/CRE 20.6 LAB L501.1800 3.2-5. g/dL Normal 0 ALB 3.8 LAB L501.2200 8.5-10 mg/dL Normal .1 CA 9.4 LAB L501.2300 2.5-4. mg/dL Normal 9 PHOS 4.3 LAB L501.5300 136-14 mmol/L Normal 5 NA 141 LAB L501.5600 3.5-5. mmol/L Normal 1 K 4.7 LAB L501.5900 98-107 mmol/L Normal CL 107 LAB L501.6100 21.0-3 mmol/L Normal 2.0 CO2 24.0 Performed By: #### L500.3600 #### [facility] [address] [place], [address] CBC W/DIFF, AUTOMATED Collected: 04/23/2018 Status: F Source: [place] 2:15 PM [facility] REPOSITORY Order Comment: Reason for Laboratory Test . TYPE CODE TESTS RESULT OUT OF RANGE REFERENCE UNITS LAB L100.1000 4.4-11.0 K/mm3 Low WBC 4.2 LAB L100.1200 4.2-5.4 M/mm3 Low RBC 3.12 LAB L100.1300 12.0-15.0 g/dl Low HGB 9.3 LAB L100.1400 37-47 % Low HCT 29.7 LAB L100.1500 81-99 fL Normal MCV 95.2 LAB L100.1600 27.0-32.0 pg Normal MCH 29.8 LAB L100.1700 32-36 g/gl Low MCHC 31.3 LAB L100.1810 11.6-14.6 % High RDW CV 15.5 LAB L100.1820 35.1-43.9 fl High RDW SD 53.7 LAB L100.1900 150-450 K/mm3 Low PLT 145 LAB L100.2000 6.2-12.0 fl Normal MPV 11.7 LAB L100.2100 47-70 % High NEUT% 71.1 LAB L100.2200 19-41 % Normal LY% 21.5 LAB L100.2300 0-10 % Normal MONO% 5.0 LAB L100.2400 0-5 % Normal EO% 1.9 LAB L100.2500 0-1 % Normal BASO% 0.5 LAB L100.2550 0.0-0.9 % Normal IM GRAN % 0.000 Result Comment: IG% - Immature Granulocytes (promyelocytes, myelocytes and metamyelocytes) > 1% indicates that a LEFT SHIFT is Present. LAB L100.2620 2.0-7.7 X10 3/uL Normal Absolute Neut 3.0 LAB L100.2720 0.83-4.51 X10 3/ul Normal Absolute Lymph 0.91 Performed By: #### L100.0100, L503.6030, L503.6550 #### [facility] [address] [place], [place], [address] IRON+IRON BINDING Collected: 04/23/2018 Status: F Source: [place] 2:15 PM [facility] REPOSITORY Order Comment: Reason for Laboratory Test . TYPE CODE TESTS RESULT OUT OF RANGE REFERENCE UNITS LAB L503.6075 250-450 ug/dL TIBC Normal 355 LAB L503.6150 50-170 ug/dL Low IRON 42 LAB L503.6250 15.0-55.0 % Low IRON SATURATION 11.8 Performed By: #### L100.0100, L503.6030, L503.6550 #### [facility] [address] [place], [place], [id number] FERRITIN Collected: 04/23/2018 Status: F Source: [place] 2:15 PM [facility] REPOSITORY Order Comment: Reason for Laboratory Test . TYPE CODE TESTS RESULT OUT OF RANGE REFERENCE UNITS LAB L503.6550 8-252 ng/mL Normal FERRITIN 44 Performed By: #### L100.0100, L503.6030, L503.6550 #### [facility] [address] [place], [place], [address] CBC W/DIFF, AUTOMATED Collected: 04/02/2018 Status: F Source: [place] 2:22 PM [facility] REPOSITORY Order Comment: Reason for Laboratory Test DRAW BLOODBANK TUBE FOR TYPE AND HOLD TYPE CODE TESTS RESULT OUT OF RANGE REFERENCE UNITS LAB L100.1000 4.4-11.0 K/mm3 Normal WBC 5.7 LAB L100.1200 4.2-5.4 M/mm3 Low RBC 3.11 LAB L100.1300 12.0-15.0 g/dl Low HGB 9.1 LAB L100.1400 37-47 % Low HCT 30.9 LAB L100.1500 81-99 fL High MCV 99.4 LAB L100.1600 27.0-32.0 pg Normal MCH 29.3 LAB L100.1700 32-36 g/gl Low MCHC 29.4 LAB L100.1810 11.6-14.6 % High RDW CV 16.8 LAB L100.1820 35.1-43.9 fl High RDW SD 60.8 LAB L100.1900 150-450 K/mm3 Normal PLT 213 LAB L100.2000 6.2-12.0 fl Normal MPV 10.9 LAB L100.2100 47-70 % High NEUT% 78.6 LAB L100.2200 19-41 % Low LY% 13.4 LAB L100.2300 0-10 % Normal MONO% 5.7 LAB L100.2400 0-5 % Normal EO% 1.9 LAB L100.2500 0-1 % Normal BASO% 0.4 LAB L100.2550 0.0-0.9 % Normal IM GRAN % 0.000 Result Comment: IG% - Immature Granulocytes (promyelocytes, myelocytes and metamyelocytes) > 1% indicates that a LEFT SHIFT is Present. LAB L100.2620 2.0-7.7 X10 3/uL Normal Absolute Neut 4.5 LAB L100.2720 0.83-4.51 X10 3/ul Low Absolute Lymph 0.76 Performed By: #### L100.0100 #### [facility] [address] [place], [place], [address] ONCOLOGY VISIT REPORT Observed: 04/02/2018 Status: F Source: [place] 2:19 PM [facility] REPOSITORY [facility] [place] [address] OFFICE VISIT Date of Service: 04/02/18 1329 MR#: [id number] Acct: [id number] Name: GABBI ROLLE Rep #: [id number] : 1945 From: Halley Khan MD Age/Sex: 72/F Location: ONC Status: Signed - Problem List (1) Anemia Status: Chronic Qualifiers: Anemia type: unspecified type Qualified Code(s): D64.9 - Anemia, unspecified (2) Iron deficiency [...] held in 2018) and chronic and episodic acute GI blood loss (GI nuclear scan January 2018 reported:2 separate foci of active extravasation (active bleeding) of radiotracer located in the stomach and in the upper ascending colon.) She had been on oral iron supplement averaging 1-3 [...] Her oral iron supplement was discontinued in 2017 to allow for monitoring of GI bleeding. Her anemia has responded in the past to oral and intravenous iron but tends to recur rapidly. February 2018 she presented with yet another episode of acute on chronic GI bleed and was urgently transferred to [facility] where she underwent a nuclear medicine GI blood loss imaging followed by angiography and embolization of a bleeding artery. - Past Medical/Social History Past Medical History Past Medical History: Anemia,Bleeding disorder,Blood transfusion, Diabetes mellitus,Diverticulitis,Edema,GI bleed, Heart disease,Hyperlipidemia,Hypertension,Liver disease,Obesity,Osteopenia,Pneumonia, Postmenopausal,Vitamin D deficiency,Fatigue Other Past Medical History: PULMONARY HYPERTENTION UTI (SEPTIC) GIB Past Surgical History Surgical: Appendectomy,Hysterectomy Other Surgical History: RIGHT FOOT SURGERY 1985 Family History Paternal Past Medical History: Heart disease Maternal Past Medical History: Unknown Maternal History of Cancer: Uterine cancer Social History Smoking Status Never smoker Review of Systems Constitutional:: Reports: Weakness, Fatigue - Chronic. Denies: Fever, Sweats, Weight loss, Appetite change, Chills Cardiovascular:: Reports: Dyspnea on exertion, Peripheral edema. Denies: Chest pain, Palpitations, Orthopnea, PND, Shortness of breath Respiratory: Reports: Shortness of breath upon exertion. Denies: Cough, Hemoptysis, Shortness of Breath, Wheezing Gastrointestinal:: Reports: Melena - Intermittent recurred the weekend of March 29, Hematochezia. Denies: Abdominal pain, Nausea, Vomiting, Diarrhea, Constipation [...] obese HEENT: Atraumatic, PERRLA, EOMI, Normocephalic, - Oropharynx:: Pale mucosa, Dry mucosa Neck:: Supple, Trachea midline, -. Negative for: JVD, bilateral Cardiac:: Irregular rate, Murmur Lungs: Clear to auscultation, Excusion symmetrical. Negative for: Rhonchi, Wheezes Extremities:: Edema - Gross nonpitting [...] L Hct Iron Saturation 12.7 L 31.9 Ferritin 54 135 Assessment and Plan 72-year-old female with chronic recurring anemia most consistent with multiple factors includin. Chronic recurrent iron deficiency anemia due to chronic and acute episodes of GI blood loss Despite oral iron supplementation (half-way), . Patient was transfused with packed red [...] iron to avoid confusion by discoloration of stool. Follow-up in 1 month 2. [...] Q4H PRN PRN 01/03/18 [Combivent Respimat Inhal [place]] Furosemide [Lasix] 40 mg PO BID 01/15/18 Primary Care Provider: Sara Zarate Referring Provider: Halley Khan MD 04/02/18 1419 <Electronically signed by Halley Khan MD> Date Halley Khan MD Cosigner Signature: Date (if applicable) CC: RENAL PROFILE Collected: 03/27/2018 Status: F Source: [place] 12:39 PM [facility] REPOSITORY TYPE CODE TESTS RESULT OUT OF RANGE REFERENCE UNITS LAB L501.0100 74-106 mg/dL High GLU 117 Result Comment: Fasting Glucose result from 100 to 125 mg/dL suggests IMPAIRED HOMEOSTASIS per A.D.A. criteria. Please note revised GLUCOSE reference range effective 2017. LAB L501.1000 7-18 mg/dL High BUN 24 LAB L501.1100 0.55-1.02 mg/dL High CREAT,SERUM 1.66 Result Comment: The validity of the calculated GFR AND GFRAA in patients over 70 years has not been determined. Clinical correlation is essential. LAB L501.1110 >60 mL/min Low EST GFR 32 Result Comment: Non- GFR Calc LAB L501.1115 >60 mL/min Low EST GFR - AA 39 Result Comment: GFR Calc LAB L501.1255 ml/min Normal Estimated CRCL 28.91 LAB L501.1300 10-20 RATIO Normal BUN/CRE 14.5 LAB L501.1800 3.2-5. g/dL Normal 0 ALB 3.8 LAB L501.2200 8.5-10 mg/dL Normal .1 CA 9.2 LAB L501.2300 2.5-4. mg/dL Normal 9 PHOS 3.1 LAB L501.5300 136-14 mmol/L Normal 5 NA 144 LAB L501.5600 3.5-5. mmol/L Normal 1 K 4.3 LAB L501.5900 98-107 mmol/L High CL 109 LAB L501.6100 21.0-3 mmol/L Normal 2.0 CO2 24.0 Performed By: #### L500.3600 #### [facility] [address] [place], [place], [address] CBC W/DIFF, AUTOMATED Collected: 03/27/2018 Status: F Source: [place] 12:04 PM [facility] REPOSITORY Order Comment: Reason for Laboratory Test . TYPE CODE TESTS RESULT OUT OF RANGE REFERENCE UNITS LAB L100.1000 4.4-11.0 K/mm3 Normal WBC 5.4 LAB L100.1200 4.2-5.4 M/mm3 Low RBC 3.04 LAB L100.1300 12.0-15.0 g/dl Low HGB 8.8 LAB L100.1400 37-47 % Low HCT 30.3 LAB L100.1500 81-99 fL High MCV 99.7 LAB L100.1600 27.0-32.0 pg Normal MCH 28.9 LAB L100.1700 32-36 g/gl Low MCHC 29.0 LAB L100.1810 11.6-14.6 % High RDW CV 17.1 LAB L100.1820 35.1-43.9 fl High RDW SD 62.2 LAB L100.1900 150-450 K/mm3 Normal PLT 224 LAB L100.2000 6.2-12.0 fl Normal MPV 10.9 LAB L100.2100 47-70 % High NEUT% 77.1 LAB L100.2200 19-41 % Low LY% 15.8 LAB L100.2300 0-10 % Normal MONO% 4.3 LAB L100.2400 0-5 % Normal EO% 2.2 LAB L100.2500 0-1 % Normal BASO% 0.6 LAB L100.2550 0.0-0.9 % Normal IM GRAN % 0.000 Result Comment: IG% - Immature Granulocytes (promyelocytes, myelocytes and metamyelocytes) > 1% indicates that a LEFT SHIFT is Present. LAB L100.2620 2.0-7.7 X10 3/uL Normal Absolute Neut 4.1 LAB L100.2720 0.83-4.51 X10 3/ul Normal Absolute Lymph 0.85 Performed By: #### L100.0100 #### [facility] [address] [place] [address]. [place], [place], [address] IRON+IRON BINDING Collected: 03/27/2018 Status: F Source: [facility] 12:04 PM [facility] REPOSITORY Order Comment: Reason for Laboratory Test . TYPE CODE TESTS RESULT OUT OF RANGE REFERENCE UNITS LAB L503.6075 250-450 ug/dL TIBC Normal 367 LAB L503.6150 50-170 ug/dL IRON Normal 117 LAB L503.6250 15.0-55.0 % IRON Normal SATURATION 31.9 Performed By: #### L503.6030, L503.6550 #### [facility] [address] [place], [place], [address] FERRITIN Collected: 03/27/2018 Status: F Source: [place] 12:04 PM [facility] REPOSITORY Order Comment: Reason for Laboratory Test . TYPE CODE TESTS RESULT OUT OF RANGE REFERENCE UNITS LAB L503.6550 8-252 ng/mL Normal FERRITIN 135 Performed By: #### L503.6030, L503.6550 #### [facility] [address] [place], [place], [address] BMP Collected: 03/19/2018 Status: F Source: [facility] 8:46 AM [facility] REPOSITORY TYPE CODE TESTS RESULT OUT OF REFERENCE UNITS RANGE LAB GLU(LOINC) 82-115 mg/dL Glucose High Level 141 LAB NA(LOINC) 136-145 mEq/L Sodium Level 144 LAB K(LOINC) 3.5-5.0 mEq/L Potassium Level 4.0 LAB CL(LOINC) 98-110 mEq/L Chloride 110 LAB CO2(LOINC) 22-32 mEq/L CO2 24 LAB EBAL(LOINC 4.0-15.0 mEq/L ) Electrolyte Balance 10.0 LAB BUN(LOINC) 8.0-22.0 mg/dL BUN 19.0 LAB CRE(LOINC) 0.50-1.20 mg/dL Creatinine High Lvl (s) 1.53 LAB BC(LOINC) 10.0-22.0 ratio BUN/Creatinine 12.4 Ratio LAB CA(LOINC) 8.4-10.1 mg/dL Calcium Lvl 9.2 Performed By: #### BMP, GFR, CBC, ADIFF, ANEU #### [place] [address] .GFR Collected: 03/19/2018 Status: F Source: [facility] 8:46 AM [facility] REPOSITORY TYPE CODE TESTS RESULT OUT OF REFERENCE UNITS RANGE LAB GFRAA(LOINC ml/min/1.73 ) sqm GFR 40 [place] Result Comment: GFR Population mean for , Non- Americans Ages 20-29 = 116 mL/min/1.73 sq.m. Ages 30-39 = 107 mL/min/1.73 sq.m. Ages 40-49 = 99 mL/min/1.73 sq.m. Ages 50-59 = 93 mL/min/1.73 sq.m. Ages 60-69 = 85 mL/min/1.73 sq.m. Ages 70+ = 75 mL/min/1.73 sq.m. Chronic Kidney Disease: Less than 60 mL/min/1.73 square meters End Stage Renal Disease: Less than 15 mL/min/1.73 square meters LAB GFRNO(LOINC) ml/min/1.73sqm GFR Non- 33 Result Comment: GFR Population mean for , Non- Americans Ages 20-29 = 116 mL/min/1.73 sq.m. Ages 30-39 = 107 mL/min/1.73 sq.m. Ages 40-49 = 99 mL/min/1.73 sq.m. Ages 50-59 = 93 mL/min/1.73 sq.m. Ages 60-69 = 85 mL/min/1.73 sq.m. Ages 70+ = 75 mL/min/1.73 sq.m. Chronic Kidney Disease: Less than 60 mL/min/1.73 square meters End Stage Renal Disease: Less than 15 mL/min/1.73 square meters Performed By: #### BMP, GFR, CBC, ADIFF, ANEU #### [address] [address] CBC Collected: 03/19/2018 Status: F Source: [facility] 8:46 [facility] REPOSITORY TYPE CODE TESTS RESULT OUT OF REFERENCE UNITS RANGE LAB WBC(LOINC) 4.50-10.80 10 3/mcL WBC 5.10 LAB RBCCT(LOINC 4.10-5.30 10 6/mcL ) Low RBC 2.75 LAB HGB(LOINC) 12.0-16.0 G/dL Low Hgb 8.4 LAB HCT(LOINC) 34.0-46.0 % Low Hct 25.6 LAB MCV(LOINC) 80.0-99.0 fL MCV 93.1 LAB MCH(LOINC) 27.0-33.0 pg MCH 30.5 LAB MCHC(LOINC) 32.0-36.0 G/dL MCHC 32.8 LAB RDW(LOINC) 11.5-15.5 % High RDW 17.1 LAB PLT(LOINC) 150-450 10 3/mcL Platelet 193 LAB MPV(LOINC) 6.6-10.5 fL MPV 9.6 Performed By: #### BMP, GFR, CBC, ADIFF, ANEU #### [address] [address] .AUTO DIFF Collected: 03/19/2018 Status: F Source: [facility] 8:46 [facility] REPOSITORY TYPE CODE TESTS RESULT OUT OF REFERENCE UNITS RANGE LAB NEELA(LOINC) 50.0-75.0 % High Neutrophil % 77.3 LAB LYM(LOINC) 20.0-40.0 % Low Lymphocyte % 13.2 LAB MON(LOINC) 2.0-13.0 % Monocyte % 5.7 LAB EO(LOINC) 0.0-6.0 % Eosinophil % 2.8 LAB BAS(LOINC) 0.0-2.5 % Basophil % 1.0 LAB ABLYM(LOIN 0.90-4.32 10 3/mcL C) Low Lymphocyte, 0.70 Absolute LAB NATALIA(LOINC 0.09-1.40 10 3/mcL ) Monocyte, 0.30 Absolute LAB AEOS(LOINC 0.00-0.65 10 3/mcL ) Eosinophil, 0.10 Absolute LAB ABAS(LOINC 0.00-0.27 10 3/mcL ) Basophil, 0.00 Absolute Performed By: #### BMP, GFR, CBC, ADIFF, ANEU #### [place] [address] .NEUABS Collected: 03/19/2018 Status: F Source: [facility] 8:46 AM [facility] REPOSITORY TYPE CODE TESTS RESULT OUT OF REFERENCE UNITS RANGE LAB ANEU(LOINC) 2.25-8.10 10 3/mcL Neutrophil, 3.90 Absolute Performed By: #### BMP, GFR, CBC, ADIFF, ANEU #### [address] Collected: 03/18/2018 Status: F Source: [facility] 9:35 AM [facility] REPOSITORY TYPE CODE TESTS RESULT OUT OF RANGE REFERENCE UNITS LAB HGB(LOINC) 12.0-16.0 G/dL Low Hgb 7.8 LAB HCT(LOINC) 34.0-46.0 % Low Hct 23.5 Performed By: #### HH #### [address] Collected: 03/18/2018 Status: F Source: [facility] 4:15 AM [facility] REPOSITORY TYPE CODE TESTS RESULT OUT OF RANGE REFERENCE UNITS LAB HGB(LOINC) 12.0-16.0 G/dL Low Hgb 7.4 LAB HCT(LOINC) 34.0-46.0 % Low Hct 22.5 Performed By: #### HH #### [place] [address] FERR Collected: 03/18/2018 Status: F Source: [facility] 4:15 AM [facility] REPOSITORY TYPE CODE TESTS RESULT OUT OF REFERENCE UNITS RANGE LAB FERR(LOINC) 8-252 ng/mL Ferritin 119 Performed By: #### FERR, FES #### [place] [address] FES Collected: 03/18/2018 Status: F Source: [facility] 4:15 AM [facility] REPOSITORY TYPE CODE TESTS RESULT OUT OF RANGE REFERENCE UNITS LAB FE(LOINC) 37-170 mcg/dL High Iron 197 LAB IBC(LOINC) 250-500 mcg/dL TIBC 308 LAB FESAT(LOINC % ) Iron Sat 64 Performed By: #### FERR, FES #### [place] [address] HH Collected: 03/17/2018 Status: F Source: [facility] 10:26 PM [facility] REPOSITORY TYPE CODE TESTS RESULT OUT OF RANGE REFERENCE UNITS LAB HGB(LOINC) 12.0-16.0 G/dL Low Hgb 8.4 LAB HCT(LOINC) 34.0-46.0 % Low Hct 25.7 Performed By: #### HH #### [place] [address] HH Collected: 03/17/2018 Status: F Source: [facility] 5:22 PM [facility] REPOSITORY TYPE CODE TESTS RESULT OUT OF RANGE REFERENCE UNITS LAB HGB(LOINC) 12.0-16.0 G/dL Low Hgb 8.4 LAB HCT(LOINC) 34.0-46.0 % Low Hct 25.7 Performed By: #### HH #### [place] [address] XR CHEST 1 VIEW Observed: 03/17/2018 Status: F Source: [facility] 7:00 AM [facility] REPOSITORY ORIGINAL Clinical history: Short of breath. COMPARISON: None Portable AP radiograph of chest was obtained at 6:45 AM. RIGHT chest port catheter tip is in the superior vena cava. The heart is moderately enlarged. Mild diffuse pulmonary edema is present. There is no focal lung consolidation or significant pleural fluid. There is no pneumothorax. IMPRESSION: Mild congestive heart failure pattern. Interpreted By: Bryce Caal MD Preliminary Report By: Bryce Caal MD Electronically Signed By: Bryce Caal MD Dictated Date: 03/17/2018 7:46:25 AM Prelim Date: 03/17/2018 7:46:25 AM Sign Date: 03/17/2018 7:48:14 AM CBC Collected: 03/17/2018 Status: F Source: [facility] 4:17 AM [facility] REPOSITORY TYPE CODE TESTS RESULT OUT OF REFERENCE UNITS RANGE LAB WBC(LOINC) 4.50-10.80 10 3/mcL WBC 4.80 LAB RBCCT(LOINC 4.10-5.30 10 6/mcL ) Low RBC 2.41 LAB HGB(LOINC) 12.0-16.0 G/dL Low Hgb 7.5 LAB HCT(LOINC) 34.0-46.0 % Low Hct 22.4 LAB MCV(LOINC) 80.0-99.0 fL MCV 92.7 LAB MCH(LOINC) 27.0-33.0 pg MCH 30.9 LAB MCHC(LOINC) 32.0-36.0 G/dL MCHC 33.3 LAB RDW(LOINC) 11.5-15.5 % High RDW 16.4 LAB PLT(LOINC) 150-450 10 3/mcL Platelet 173 LAB MPV(LOINC) 6.6-10.5 fL MPV 9.5 Performed By: #### BMP, GFR, CBC, ADIFF, ANEU #### [place] [address] .AUTO DIFF Collected: 03/17/2018 Status: F Source: [facility] 4:17 AM [facility] REPOSITORY TYPE CODE TESTS RESULT OUT OF REFERENCE UNITS RANGE LAB NEELA(LOINC) 50.0-75.0 % Neutrophil % 74.5 LAB LYM(LOINC) 20.0-40.0 % Low Lymphocyte % 15.1 LAB MON(LOINC) 2.0-13.0 % Monocyte % 6.9 LAB EO(LOINC) 0.0-6.0 % Eosinophil % 2.4 LAB BAS(LOINC) 0.0-2.5 % Basophil % 1.1 LAB ABLYM(LOIN 0.90-4.32 10 3/mcL C) Low Lymphocyte, 0.70 Absolute LAB NATALIA(LOINC 0.09-1.40 10 3/mcL ) Monocyte, 0.30 Absolute LAB AEOS(LOINC 0.00-0.65 10 3/mcL ) Eosinophil, 0.10 Absolute LAB ABAS(LOINC 0.00-0.27 10 3/mcL ) Basophil, 0.10 Absolute Performed By: #### BMP, GFR, CBC, ADIFF, ANEU #### [place] [address] .NEUABS Collected: 03/17/2018 Status: F Source: [facility] 4:17 AM [facility] REPOSITORY TYPE CODE TESTS RESULT OUT OF REFERENCE UNITS RANGE LAB ANEU(LOINC) 2.25-8.10 10 3/mcL Neutrophil, 3.60 Absolute Performed By: #### BMP, GFR, CBC, ADIFF, ANEU #### [place] [address] MG Collected: 03/17/2018 Status: F Source: [facility] 4:17 AM [facility] REPOSITORY TYPE CODE TESTS RESULT OUT OF REFERENCE UNITS RANGE LAB MG(LOINC) 1.6-2.4 mg/dL Magnesium Lvl 2.2 Performed By: #### PBNP, MG, CMP, GFR, LIPID #### [place] [address] CMP Collected: 03/17/2018 Status: F Source: [facility] 4:17 AM [facility] REPOSITORY TYPE CODE TESTS RESULT OUT OF REFERENCE UNITS RANGE LAB GLU(LOINC) 82-115 mg/dL Glucose Level 110 LAB NA(LOINC) 136-145 mEq/L Sodium Level 145 LAB K(LOINC) 3.5-5.0 mEq/L Potassium Level 4.1 LAB CL(LOINC) 98-110 mEq/L Chloride 109 LAB CO2(LOINC) 22-32 mEq/L CO2 26 LAB EBAL(LOINC 4.0-15.0 mEq/L ) Electrolyte Balance 10.0 LAB BUN(LOINC) 8.0-22.0 mg/dL BUN High 32.0 LAB CRE(LOINC) 0.50-1.20 mg/dL Creatinine High Lvl (s) 1.65 LAB BC(LOINC) 10.0-22.0 ratio BUN/Creatinine 19.4 Ratio LAB CA(LOINC) 8.4-10.1 mg/dL Calcium Lvl 9.0 LAB PROT(LOINC 6.0-8.5 G/dL ) Low Total Protein 5.9 LAB ALB(LOINC) 3.2-4.8 G/dL Low Albumin Level 3.1 LAB GLB(LOINC) 1.5-3.8 G/dL Globulin 2.8 LAB AG(LOINC) 0.9-1.6 ratio A/G Ratio 1.1 LAB BILT(LOINC 0.2-1.2 mg/dL ) Bili Total 0.5 LAB AP(LOINC) 38-126 U/L Alk Phos 68 LAB AST(LOINC) 8-34 U/L AST/SGOT 9 LAB ALT(LOINC) 10-49 U/L ALT/SGPT 14 Performed By: #### PBNP, MG, CMP, GFR, LIPID #### [place] [address] .GFR Collected: 03/17/2018 Status: F Source: [facility] 4:17 AM [facility] REPOSITORY TYPE CODE TESTS RESULT OUT OF REFERENCE UNITS RANGE LAB GFRAA(LOINC ml/min/1.73 ) sqm GFR 37 [place] Result Comment: GFR Population mean for , Non- Americans Ages 20-29 = 116 mL/min/1.73 sq.m. Ages 30-39 = 107 mL/min/1.73 sq.m. Ages 40-49 = 99 mL/min/1.73 sq.m. Ages 50-59 = 93 mL/min/1.73 sq.m. Ages 60-69 = 85 mL/min/1.73 sq.m. Ages 70+ = 75 mL/min/1.73 sq.m. Chronic Kidney Disease: Less than 60 mL/min/1.73 square meters End Stage Renal Disease: Less than 15 mL/min/1.73 square meters LAB GFRNO(LOINC) ml/min/1.73sqm GFR Non- 30 Result Comment: GFR Population mean for , Non- Americans Ages 20-29 = 116 mL/min/1.73 sq.m. Ages 30-39 = 107 mL/min/1.73 sq.m. Ages 40-49 = 99 mL/min/1.73 sq.m. Ages 50-59 = 93 mL/min/1.73 sq.m. Ages 60-69 = 85 mL/min/1.73 sq.m. Ages 70+ = 75 mL/min/1.73 sq.m. Chronic Kidney Disease: Less than 60 mL/min/1.73 square meters End Stage Renal Disease: Less than 15 mL/min/1.73 square meters Performed By: #### PBNP, MG, CMP, GFR, LIPID #### [address] [id number] LIPID Collected: 03/17/2018 Status: F Source: [facility] 4:17 AM [facility] REPOSITORY TYPE CODE TESTS RESULT OUT OF REFERENCE UNITS RANGE LAB CHOL(LOINC 50-199 mg/dL ) Cholesterol 94 Result Comment: Cholesterol Reference Interval: Less than 200 Desirable 200-239 Borderline high risk 240 and above High risk LAB TRIG(LOINC) 3-149 mg/dL Triglycerides 101 Result Comment: Triglyceride Reference Interval: Less than 150 Normal 150-199 Borderline high risk 200-499 High risk 500 or higher Very high risk LAB HD(LOINC) 40-59 mg/dL HDL Low Cholesterol 28 Result Comment: HDL Reference Interval: Less than 40 Low - high risk 60 or above Optimal/lowers risk LAB LDL(LOINC) 0-129 mg/dL LDL Cholesterol 46 Result Comment: LDL is a calculated result and requires a 12-hr fast. LDL Reference Interval: Less than 100 Optimal 100-129 Near or above optimal 130-159 Borderline high risk 160-189 High risk 190 and above Very high risk Performed By: #### PBNP, MG, CMP, GFR, LIPID #### [address] [id number] TROPI Collected: 03/17/2018 Status: F Source: [facility] 4:17 AM [facility] REPOSITORY TYPE CODE TESTS RESULT OUT OF REFERENCE UNITS RANGE LAB TROPI(LOINC 0.000-0.040 ng/mL ) Troponin I <0.015 Result Comment: Troponin I reference ranges (04/26/14): 0.00-0.040 ng/mL Negative and non-diagnostic. >0.040 ng/mL Consistent with cardiac damage, increased clinical risk and possibility of myocardial infarction. Serial measurements, a rise & fall in test results, clinical history, appropriate symptoms and/or ECG changes may help assess possibility of MN. *Other non-acute coronary syndrome conditions such as CHF, myocarditis, pulmonary emboli, sepsis and cardiac surgery could result in myocardial damage and increased troponin levels. Performed By: #### TROPI #### [place] [address] UA Collected: 03/17/2018 Status: F Source: [facility] 4:17 AM [facility]POSITORY TYPE CODE TESTS RESULT OUT OF RANGE REFERENCE UNITS LAB SPCUA(DWIGHT NC) UA Specimen Type Clean Catch LAB CLRUA(DWIGHT NC) UA Color Yellow LAB APPUA(DWIGHT Clear NC) UA Appear Unknown Hazy LAB SGUA(LOIN 1.006-1.029 C) UA Spec Grav 1.015 LAB GLUA(LOIN Negative mg/dL C) UA Glucose Negative LAB BILUA(DWIGHT Neg-Trace NC) UA Bili Negative LAB KETUA(DWIGHT Neg-Trace mg/dL NC) UA Ketones Negative LAB BLDUA(DWIGHT Neg-Trace NC) UA Blood Unknown Moderate LAB PHUA(LOIN 5.0 - 8.0 C) UA pH 7.5 LAB PROUA(DWGIHT Negative mg/dL NC) UA Protein Negative LAB UROUA(DWIGHT 0.2-1.0 E.U./dL NC) UA Urobilinogen 0.2 LAB NITUA(DWIGHT Negative NC) UA Nitrite Negative LAB LEUUA(DWIGHT Negative NC) UA Leuk Est Negative Performed By: #### UA, UAMIC #### [place] [address] UAMIC Collected: 03/17/2018 Status: F Source: [facility] 4:17 AM [facility] REPOSITORY TYPE CODE TESTS RESULT OUT OF RANGE REFERENCE UNITS LAB RBCUA(LOIN 0-2 /hpf C) Unknown UA RBC 5-10 LAB WBCUA(LOIN 0-5 /hpf C) UA WBC 3-5 LAB EPIUA(LOIN 0-20 /hpf C) UA Squam Epithelial 3-5 LAB MUCUA(LOIN /hpf C) UA Mucous 1+ LAB BACUA(LOIN Negative /hpf C) Unknown UA Bacteria 2+ Performed By: #### UA, UAMIC #### [place] [address] LAC Collected: 03/16/2018 Status: F Source: [facility] 11:00 PM [facility] REPOSITORY TYPE CODE TESTS RESULT OUT OF REFERENCE UNITS RANGE LAB LAC(LOINC) 0.2-2.0 mmol/L Lactic Acid 1.8 Lvl Performed By: #### LAC, LIP, PHOS, T4, TROPI, TSH, CK, ABORH, ANTIS, B12 #### [place] [address] LIP Collected: 03/16/2018 Status: F Source: [facility] 11:00 [facility] REPOSITORY TYPE CODE TESTS RESULT OUT OF REFERENCE UNITS RANGE LAB LIP(LOINC) 73-393 U/L Lipase Level 93 Performed By: #### LAC, LIP, PHOS, T4, TROPI, TSH, CK, ABORH, ANTIS, B12 #### [place] [address] PHOS Collected: 03/16/2018 Status: F Source: [facility] 11:00 [facility] REPOSITORY TYPE CODE TESTS RESULT OUT OF REFERENCE UNITS RANGE LAB PHOS(LOINC 2.5-4.5 mg/dL ) Phosphorus 3.3 Performed By: #### LAC, LIP, PHOS, T4, TROPI, TSH, CK, ABORH, ANTIS, B12 #### [place] [address] T4 Collected: 03/16/2018 Status: F Source: [facility] 11:00 [facility] REPOSITORY TYPE CODE TESTS RESULT OUT OF RANGE REFERENCE UNITS LAB T4(LOINC) 4.7-11.4 mcg/dL T4 9.1 Result Comment: Please note as of 03/02/17 new pediatric reference intervals were added for this test. Performed By: #### LAC, LIP, PHOS, T4, TROPI, TSH, CK, ABORH, ANTIS, B12 #### [place] [address] TROPI Collected: 03/16/2018 Status: F Source: [facility] 11:00 [facility] REPOSITORY TYPE CODE TESTS RESULT OUT OF REFERENCE UNITS RANGE LAB TROPI(LOINC 0.000-0.040 ng/mL ) Troponin I <0.015 Result Comment: Troponin I reference ranges (04/26/14): 0.00-0.040 ng/mL Negative and non-diagnostic. >0.040 ng/mL Consistent with cardiac damage, increased clinical risk and possibility of myocardial infarction. Serial measurements, a rise & fall in test results, clinical history, appropriate symptoms and/or ECG changes may help assess possibility of MN. *Other non-acute coronary syndrome conditions such as CHF, myocarditis, pulmonary emboli, sepsis and cardiac surgery could result in myocardial damage and increased troponin levels. Performed By: #### LAC, LIP, PHOS, T4, TROPI, TSH, CK, ABORH, ANTIS, B12 #### [place] [address] TSH Collected: 03/16/2018 Status: F Source: [facility] 11:00 [facility] REPOSITORY TYPE CODE TESTS RESULT OUT OF RANGE REFERENCE UNITS LAB TSH(LOINC) 0.360-3.740 mcIU/mL High TSH 6.660 Result Comment: Please note as of 03/02/17 new pediatric reference intervals were added for this test. Performed By: #### LAC, LIP, PHOS, T4, TROPI, TSH, CK, ABORH, ANTIS, B12 #### [place] [address] CK Collected: 03/16/2018 Status: F Source: [facility] 11:00 [facility] REPOSITORY TYPE CODE TESTS RESULT OUT OF RANGE REFERENCE UNITS LAB CK(LOINC) 7-185 U/L CPK 49 Performed By: #### LAC, LIP, PHOS, T4, TROPI, TSH, CK, ABORH, ANTIS, B12 #### [place] [address] TABO Collected: 03/16/2018 Status: F Source: [facility] 11:00 [facility] REPOSITORY TYPE CODE TESTS RESULT OUT OF RANGE REFERENCE UNITS LAB ABORH(LOINC ) Unknown ABO/Rh A POS Interp Performed By: #### LAC, LIP, PHOS, T4, TROPI, TSH, CK, ABORH, ANTIS, B12 #### [place] [address] TABS Collected: 03/16/2018 Status: F Source: [facility] 11:00 [facility] REPOSITORY TYPE CODE TESTS RESULT OUT OF REFERENCE UNITS RANGE LAB ANST(LOINC ) Antibody Negative ABSC Screen Tango Performed By: #### LAC, LIP, PHOS, T4, TROPI, TSH, CK, ABORH, ANTIS, B12 #### [place] [id number] B12 Collected: 03/16/2018 Status: F Source: [facility] 11:00 [facility] REPOSITORY TYPE CODE TESTS RESULT OUT OF REFERENCE UNITS RANGE LAB B12(LOINC) 211-911 pg/mL Vitamin B12 434 Lvl Performed By: #### LAC, LIP, PHOS, T4, TROPI, TSH, CK, ABORH, ANTIS, B12 #### [place] [address] HH Collected: 03/16/2018 Status: F Source: [facility] 11:00 [facility] REPOSITORY TYPE CODE TESTS RESULT OUT OF RANGE REFERENCE UNITS LAB HGB(LOINC) 12.0-16.0 G/dL Low Hgb 8.4 LAB HCT(LOINC) 34.0-46.0 % Low Hct 25.5 Performed By: #### HH #### [place] [address] BMP Collected: 03/16/2018 Status: F Source: [facility] 11:00 [facility] REPOSITORY TYPE CODE TESTS RESULT OUT OF REFERENCE UNITS RANGE LAB GLU(LOINC) 82-115 mg/dL Glucose High Level 159 LAB NA(LOINC) 136-145 mEq/L Sodium Level 143 LAB K(LOINC) 3.5-5.0 mEq/L Potassium Level 4.1 LAB CL(LOINC) 98-110 mEq/L Chloride 107 LAB CO2(LOINC) 22-32 mEq/L CO2 26 LAB EBAL(LOINC 4.0-15.0 mEq/L ) Electrolyte Balance 10.0 LAB BUN(LOINC) 8.0-22.0 mg/dL BUN High 31.0 LAB CRE(LOINC) 0.50-1.20 mg/dL Creatinine High Lvl (s) 1.67 LAB BC(LOINC) 10.0-22.0 ratio BUN/Creatinine 18.6 Ratio LAB CA(LOINC) 8.4-10.1 mg/dL Calcium Lvl 9.4 Performed By: #### BMP, GFR, CBC, ADIFF, ANEU #### [place] [address] .GFR Collected: 03/16/2018 Status: F Source: [facility] 11:00 [facility] REPOSITORY TYPE CODE TESTS RESULT OUT OF REFERENCE UNITS RANGE LAB GFRAA(LOINC ml/min/1.73 ) sqm GFR 36 [place] Result Comment: GFR Population mean for , Non- Americans Ages 20-29 = 116 mL/min/1.73 sq.m. Ages 30-39 = 107 mL/min/1.73 sq.m. Ages 40-49 = 99 mL/min/1.73 sq.m. Ages 50-59 = 93 mL/min/1.73 sq.m. Ages 60-69 = 85 mL/min/1.73 sq.m. Ages 70+ = 75 mL/min/1.73 sq.m. Chronic Kidney Disease: Less than 60 mL/min/1.73 square meters End Stage Renal Disease: Less than 15 mL/min/1.73 square meters LAB GFRNO(LOINC) ml/min/1.73sqm GFR Non- 30 Result Comment: GFR Population mean for , Non- Americans Ages 20-29 = 116 mL/min/1.73 sq.m. Ages 30-39 = 107 mL/min/1.73 sq.m. Ages 40-49 = 99 mL/min/1.73 sq.m. Ages 50-59 = 93 mL/min/1.73 sq.m. Ages 60-69 = 85 mL/min/1.73 sq.m. Ages 70+ = 75 mL/min/1.73 sq.m. Chronic Kidney Disease: Less than 60 mL/min/1.73 square meters End Stage Renal Disease: Less than 15 mL/min/1.73 square meters Performed By: #### BMP, GFR, CBC, ADIFF, ANEU #### [address] [address] PBNP Collected: 03/16/2018 Status: F Source: [facility] 11:00 PM [facility] REPOSITORY TYPE CODE TESTS RESULT OUT OF REFERENCE UNITS RANGE LAB PBNP(LOINC) 0-1800 pg/mL High N-Terminal 5286 proBNP Result Comment: NT-proBNP results of less than 300 pg/mL effectively rules out acute congestive heart failure with 99% negative predictive value. Performed By: #### PBNP, MG, CMP, GFR, LIPID #### [address] [address] BG Collected: 03/16/2018 Status: F Source: [facility] 9:39 PM [facility] REPOSITORY TYPE CODE TESTS RESULT OUT OF REFERENCE UNITS RANGE LAB PH(LOINC) 7.380-7.460 pH High 7.482 LAB PCO2(LOINC 32.0-46.0 mmHg ) Low pCO2 31.9 LAB PO2(LOINC) 74.0-108.0 mmHg Low pO2 73.0 LAB HCO3(LOINC 21.0-29.0 mmol/L ) HCO3 23.3 LAB TCO2(LOINC 22.0-30.0 mmol/L ) CO2 Totl 24.3 LAB BE(LOINC) mmol/L Base Excess 0.7 LAB O2SAT(LOIN 92.0-96.0 % C) O2 Sat 95.8 LAB BPRES(LOIN mmHg C) Barometric 739 Pressure Performed By: #### BG #### [address] [address] DIMER Collected: 03/16/2018 Status: F Source: [facility] 9:14 PM [facility] REPOSITORY TYPE CODE TESTS RESULT OUT OF RANGE REFERENCE UNITS LAB DIMER(LOINC 0-230 ng/mL D-DU ) High D-Dimer 323 Result Comment: Results reported in D- DU ng/ml. Positive for D-dimer. A positive D-dimer may occur in the following: DVT, PE, DIC, Trauma, Cancer, Sepsis, , Rheumatoid arthritis, Myocardial infarction and Cirrhosis. Note: Not affected by Rheumatoid Factor <=1400 IU/mL The result of the D-Dimer test should be evaluated in the context of all the clinical and laboratory data available. In those instances where the laboratory result does not agree with the clinical evaluation, additional tests should be performed accordingly. Performed By: #### DIMER #### [address] [address] PBNP Collected: 03/16/2018 Status: F Source: [facility] 9:14 PM [facility] REPOSITORY TYPE CODE TESTS RESULT OUT OF REFERENCE UNITS RANGE LAB PBNP(LOINC) 0-1800 pg/mL High N-Terminal 5123 proBNP Result Comment: NT-proBNP results of less than 300 pg/mL effectively rules out acute congestive heart failure with 99% negative predictive value. Performed By: #### PBNP #### [address] [address] CBC Collected: 03/16/2018 Status: F Source: [facility] 5:44 PM [facility] REPOSITORY TYPE CODE TESTS RESULT OUT OF REFERENCE UNITS RANGE LAB WBC(LOINC) 4.50-10.80 10 3/mcL WBC 6.60 LAB RBCCT(LOINC 4.10-5.30 10 6/mcL ) Low RBC 2.78 LAB HGB(LOINC) 12.0-16.0 G/dL Low Hgb 8.4 LAB HCT(LOINC) 34.0-46.0 % Low Hct 25.7 LAB MCV(LOINC) 80.0-99.0 fL MCV 92.5 LAB MCH(LOINC) 27.0-33.0 pg MCH 30.3 LAB MCHC(LOINC) 32.0-36.0 G/dL MCHC 32.7 LAB RDW(LOINC) 11.5-15.5 % High RDW 17.0 LAB PLT(LOINC) 150-450 10 3/mcL Platelet 205 LAB MPV(LOINC) 6.6-10.5 fL MPV 8.7 Performed By: #### CBC, ADIFF, ANEU, TROPI, CMP, GFR, APTT, PRO #### [address] [id number] .AUTO DIFF Collected: 03/16/2018 Status: F Source: [facility] 5:44 PM [facility] REPOSITORY TYPE CODE TESTS RESULT OUT OF REFERENCE UNITS RANGE LAB NEELA(LOINC) 50.0-75.0 % High Neutrophil % 80.6 LAB LYM(LOINC) 20.0-40.0 % Low Lymphocyte % 10.4 LAB MON(LOINC) 2.0-13.0 % Monocyte % 6.7 LAB EO(LOINC) 0.0-6.0 % Eosinophil % 1.6 LAB BAS(LOINC) 0.0-2.5 % Basophil % 0.7 LAB ABLYM(LOIN 0.90-4.32 10 3/mcL C) Low Lymphocyte, 0.70 Absolute LAB NATALIA(LOINC 0.09-1.40 10 3/mcL ) Monocyte, 0.40 Absolute LAB AEOS(LOINC 0.00-0.65 10 3/mcL ) Eosinophil, 0.10 Absolute LAB ABAS(LOINC 0.00-0.27 10 3/mcL ) Basophil, 0.00 Absolute Performed By: #### CBC, ADIFF, ANEU, TROPI, CMP, GFR, APTT, PRO #### [place] [id number] .NEUABS Collected: 03/16/2018 Status: F Source: [facility] 5:44 PM [facility] REPOSITORY TYPE CODE TESTS RESULT OUT OF REFERENCE UNITS RANGE LAB ANEU(LOINC) 2.25-8.10 10 3/mcL Neutrophil, 5.40 Absolute Performed By: #### CBC, ADIFF, ANEU, TROPI, CMP, GFR, APTT, PRO #### [place] [address] TROPI Collected: 03/16/2018 Status: F Source: [facility] 5:44 [facility] REPOSITORY TYPE CODE TESTS RESULT OUT OF REFERENCE UNITS RANGE LAB TROPI(LOINC 0.000-0.040 ng/mL ) Troponin I <0.015 Result Comment: Troponin I reference ranges (04/26/14): 0.00-0.040 ng/mL Negative and non-diagnostic. >0.040 ng/mL Consistent with cardiac damage, increased clinical risk and possibility of myocardial infarction. Serial measurements, a rise & fall in test results, clinical history, appropriate symptoms and/or ECG changes may help assess possibility of MN. *Other non-acute coronary syndrome conditions such as CHF, myocarditis, pulmonary emboli, sepsis and cardiac surgery could result in myocardial damage and increased troponin levels. Performed By: #### CBC, ADIFF, ANEU, TROPI, CMP, GFR, APTT, PRO #### [place] [address] CMP Collected: 03/16/2018 Status: F Source: [facility] 5:44 [facility] REPOSITORY TYPE CODE TESTS RESULT OUT OF REFERENCE UNITS RANGE LAB GLU(LOINC) 82-115 mg/dL Glucose High Level 125 LAB NA(LOINC) 136-145 mEq/L Sodium Level 142 LAB K(LOINC) 3.5-5.0 mEq/L Potassium Level 4.1 LAB CL(LOINC) 98-110 mEq/L Chloride 108 LAB CO2(LOINC) 22-32 mEq/L CO2 26 LAB EBAL(LOINC 4.0-15.0 mEq/L ) Electrolyte Balance 8.0 LAB BUN(LOINC) 8.0-22.0 mg/dL BUN High 33.0 LAB CRE(LOINC) 0.50-1.20 mg/dL Creatinine High Lvl (s) 1.86 LAB BC(LOINC) 10.0-22.0 ratio BUN/Creatinine 17.7 Ratio LAB CA(LOINC) 8.4-10.1 mg/dL Calcium Lvl 9.3 LAB PROT(LOINC 6.0-8.5 G/dL ) Total Protein 7.7 LAB ALB(LOINC) 3.2-4.8 G/dL Albumin Level 3.8 LAB GLB(LOINC) 1.5-3.8 G/dL Globulin High 3.9 LAB AG(LOINC) 0.9-1.6 ratio A/G Ratio 1.0 LAB BILT(LOINC 0.2-1.2 mg/dL ) Bili Total 0.6 LAB AP(LOINC) 38-126 U/L Alk Phos 86 LAB AST(LOINC) 8-34 U/L AST/SGOT 13 LAB ALT(LOINC) 10-49 U/L ALT/SGPT 17 Performed By: #### CBC, ADIFF, ANEU, TROPI, CMP, GFR, APTT, PRO #### [place] [address] .GFR Collected: 03/16/2018 Status: F Source: [facility] 5:44 PM [facility] REPOSITORY TYPE CODE TESTS RESULT OUT OF REFERENCE UNITS RANGE LAB GFRAA(LOINC ml/min/1.73 ) sqm GFR 32 [place] Result Comment: GFR Population mean for , Non- Americans Ages 20-29 = 116 mL/min/1.73 sq.m. Ages 30-39 = 107 mL/min/1.73 sq.m. Ages 40-49 = 99 mL/min/1.73 sq.m. Ages 50-59 = 93 mL/min/1.73 sq.m. Ages 60-69 = 85 mL/min/1.73 sq.m. Ages 70+ = 75 mL/min/1.73 sq.m. Chronic Kidney Disease: Less than 60 mL/min/1.73 square meters End Stage Renal Disease: Less than 15 mL/min/1.73 square meters LAB GFRNO(LOINC) ml/min/1.73sqm GFR Non- 26 Result Comment: GFR Population mean for , Non- Americans Ages 20-29 = 116 mL/min/1.73 sq.m. Ages 30-39 = 107 mL/min/1.73 sq.m. Ages 40-49 = 99 mL/min/1.73 sq.m. Ages 50-59 = 93 mL/min/1.73 sq.m. Ages 60-69 = 85 mL/min/1.73 sq.m. Ages 70+ = 75 mL/min/1.73 sq.m. Chronic Kidney Disease: Less than 60 mL/min/1.73 square meters End Stage Renal Disease: Less than 15 mL/min/1.73 square meters Performed By: #### CBC, ADIFF, ANEU, TROPI, CMP, GFR, APTT, PRO #### [address] [address] APTT Collected: 03/16/2018 Status: F Source: [facility] 5:44 PM [facility] REPOSITORY TYPE CODE TESTS RESULT OUT OF REFERENCE UNITS RANGE LAB PDOSE(LOIN C) Heparin dose None (APTT) LAB APTT0(LOIN 25.0-35.0 seconds C) APTT 29.2 Result Comment: For Heparin anticoagulation therapy, the recommended therapeutic range is: 54-77 seconds (APTT Correlation with Anti-Xa therapeutic range of 0.3-0.7 units/ml). PLEASE REFERENCE THE PHARMACY PROTOCOL FOR DOSING. Performed By: #### CBC, ADIFF, ANEU, TROPI, CMP, GFR, APTT, PRO #### [address] [address] PRO Collected: 03/16/2018 Status: F Source: [facility] 5:44 PM [facility] REPOSITORY TYPE CODE TESTS RESULT OUT OF REFERENCE UNITS RANGE LAB PT(LOINC) 9.0-14.5 seconds Protime 13.1 Result Comment: Effective 03/02/08, Protime results may be affected by some antibiotics (i.e. Ciprofloxacin, Azithromycin, Bactrim) which may potentiate the action of oral anticoagulants, with further increases in Protime/INR. LAB INR(LOINC) ratio PT International Ratio 1.1 Result Comment: The [place] [employer] (CHEST, 1992, 102:312S-25S) recommended therapeutic range for oral anticoagulant therapy is: LOW RISK: Prophylaxis of venous thrombosis INR: 2.0-3.0 Treatment of pulmonary embolism 2.0-3.0 Prevention of systemic embolism 2.0-3.0 HIGH RISK: Mechanical prosthetic valves 2.5-3.5 Performed By: #### CBC, ADIFF, ANEU, TROPI, CMP, GFR, APTT, PRO #### [place] [address] CBC W/DIFF, AUTOMATED Collected: 03/12/2018 Status: F Source: [place] 1:26 PM [facility] REPOSITORY TYPE CODE TESTS RESULT OUT OF RANGE REFERENCE UNITS LAB L100.1000 4.4-11.0 K/mm3 Normal WBC 5.8 LAB L100.1200 4.2-5.4 M/mm3 Low RBC 2.80 LAB L100.1300 12.0-15.0 g/dl Low HGB 8.2 LAB L100.1400 37-47 % Low HCT 27.6 LAB L100.1500 81-99 fL Normal MCV 98.6 LAB L100.1600 27.0-32.0 pg Normal MCH 29.3 LAB L100.1700 32-36 g/gl Low MCHC 29.7 LAB L100.1810 11.6-14.6 % High RDW CV 16.5 LAB L100.1820 35.1-43.9 fl High RDW SD 58.8 LAB L100.1900 150-450 K/mm3 Normal PLT 224 LAB L100.2000 6.2-12.0 fl Normal MPV 11.0 LAB L100.2100 47-70 % High NEUT% 79.0 LAB L100.2200 19-41 % Low LY% 14.7 LAB L100.2300 0-10 % Normal MONO% 4.1 LAB L100.2400 0-5 % Normal EO% 1.9 LAB L100.2500 0-1 % Normal BASO% 0.3 LAB L100.2550 0.0-0.9 % Normal IM GRAN % 0.000 Result Comment: IG% - Immature Granulocytes (promyelocytes, myelocytes and metamyelocytes) > 1% indicates that a LEFT SHIFT is Present. LAB L100.2620 2.0-7.7 X10 3/uL Normal Absolute Neut 4.6 LAB L100.2720 0.83-4.51 X10 3/ul Normal Absolute Lymph 0.86 Performed By: #### L100.0100 #### [facility] [address] [place], [place], [address] COMPREHENSIVE METABOLIC Collected: 03/12/2018 Status: F Source: [facility] 1:26 PM [facility] REPOSITORY TYPE CODE TESTS RESULT OUT OF RANGE REFERENCE UNITS LAB L501.0100 74-106 mg/dL High GLU 118 Result Comment: Fasting Glucose result from 100 to 125 mg/dL suggests IMPAIRED HOMEOSTASIS per A.D.A. criteria. Please note revised GLUCOSE reference range effective 2017. LAB L501.1000 7-18 mg/dL High BUN 32 LAB L501.1100 0.55-1.02 mg/dL High CREAT,SERUM 1.99 Result Comment: The validity of the calculated GFR AND GFRAA in patients over 70 years has not been determined. Clinical correlation is essential. LAB L501.1110 >60 mL/min Low EST GFR 26 Result Comment: Non- GFR Calc LAB L501.1115 >60 mL/min Low EST GFR - AA 31 Result Comment: GFR Calc LAB L501.1255 ml/min Normal Estimated CRCL 24.12 LAB L501.1300 10-20 RATIO Normal BUN/CRE 16.1 LAB L501.1500 6.4-8. g/dL Normal 2 T PROT 6.9 LAB L501.1800 3.2-5. g/dL Low 0 ALB 3.1 LAB L501.1950 2.2-4. g/dL Normal 2 GLOB 3.8 LAB L501.2000 0.9-2. RATIO Low 4 A/G 0.8 LAB L501.2200 8.5-10 mg/dL Normal .1 CA 9.2 LAB L501.4100 15-37 U/L Low AST 13 LAB L501.4305 45-117 U/L Normal ALK P 77 LAB L501.4405 13-56 U/L Normal ALT 18 LAB L501.4600 0.20-1 mg/dL Normal .00 T BILI 0.40 LAB L501.5300 136-14 mmol/L Normal 5 NA 144 LAB L501.5600 3.5-5. mmol/L Normal 1 K 4.6 LAB L501.5900 98-107 mmol/L High CL 110 LAB L501.6100 21.0-3 mmol/L Normal 2.0 CO2 27.0 LAB L501.6200 5-15 Normal GAP 7 Performed By: #### L500.4050 #### [facility] [address] [place], [address] IRON+IRON BINDING Collected: 03/05/2018 Status: F Source: [facility] 3:36 PM [facility] REPOSITORY Order Comment: Reason for Laboratory Test . TYPE CODE TESTS RESULT OUT OF RANGE REFERENCE UNITS LAB L503.6075 250-450 ug/dL TIBC Normal 331 LAB L503.6150 50-170 ug/dL Low IRON 42 LAB L503.6250 15.0-55.0 % Low IRON SATURATION 12.7 Performed By: #### L503.6030, L503.6550 #### [facility] [address] [place], [address] FERRITIN Collected: 03/05/2018 Status: F Source: [place] 3:36 PM [facility] REPOSITORY Order Comment: Reason for Laboratory Test . TYPE CODE TESTS RESULT OUT OF RANGE REFERENCE UNITS LAB L503.6550 8-252 ng/mL Normal FERRITIN 54 Performed By: #### L503.6030, L503.6550 #### [facility] [address] [place], [address] ONCOLOGY VISIT REPORT Observed: 03/05/2018 Status: F Source: [place] 2:40 PM [facility] REPOSITORY [facility] [address] [place] [address] OFFICE VISIT Date of Service: 03/05/18 1431 MR#: [id number] Acct: [id number] Name: GABBI ROLLE Alexandro Rep #: [id number] : 1945 From: Halley Khan MD Age/Sex: 72/F Location: OMD Status: Signed - Problem List (1) Anemia Status: Chronic Qualifiers: Anemia type: unspecified type Qualified Code(s): D64.9 - Anemia, unspecified (2) Iron deficiency [...] and was urgently transferred to [facility] where she underwent a nuclear medicine GI blood loss imaging followed by angiography and embolization of a bleeding artery feeding the area where the small bowel joints into a large bowel as per patient. - Interval History Following the recent embolization on February 23, 2018 patient has noted that her stools have now turned brown. Unaware of any further visible bleeding - Past Medical/Social History Past Medical History [...] x3, No apparent distress, - - Morbidly obese, mildly pale Neck:: Supple, Trachea midline. Negative for: JVD, bilateral Cardiac:: Irregular rate, Murmur Lungs: Clear to auscultation Extremities:: Edema - Gross nonpitting Neurological: Neuro grossly intact Skin:: Negative for: Lesions, Rash, Petechiae, Ecchymosis Psychiatric:: Appropriate affect, Euthymic Lymphatics:: Negative for: Cervical lymphadenopathy Laboratory Data: Laboratory Tests WBC 6.2 (4.4-11.0) K/mm3 RBC 2.94 L (4.2-5.4) M/mm3 Hgb 8.5 L (12.0-15.0) g/dl Hct 28.7 L (37-47) % MCV 97.6 (81-99) fL An update iron studies following the most recent GI bleed of February 23 pending Assessment and Plan 72-year-old female with chronic recurring anemia most consistent with multiple factors includin. 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 Hobbs, ) despite oral iron supplementation (half-way) . Patient was transfused with packed red [...] Medication Instructions Recorded Primary Care Provider: Sara Zarate Referring Provider: Halley Khan MD 03/05/18 1440 <Electronically signed by Halley Khan MD> Date Halley Khan MD Cosigner Signature: Date (if applicable) CC: CBC-COMPLETE BLOOD CNT Collected: 03/05/2018 Status: F Source: [place] NO DIFF 1:21 PM [facility] REPOSITORY TYPE CODE TESTS RESULT OUT OF RANGE REFERENCE UNITS LAB L100.1000 4.4-11.0 K/mm3 Normal WBC 6.2 LAB L100.1200 4.2-5.4 M/mm3 Low RBC 2.94 LAB L100.1300 12.0-15.0 g/dl Low HGB 8.5 LAB L100.1400 37-47 % Low HCT 28.7 LAB L100.1500 81-99 fL Normal MCV 97.6 LAB L100.1600 27.0-32.0 pg Normal MCH 28.9 LAB L100.1700 32-36 g/gl Low MCHC 29.6 LAB L100.1810 11.6-14.6 % High RDW CV 16.5 LAB L100.1820 35.1-43.9 fl High RDW SD 57.5 LAB L100.1900 150-450 K/mm3 Normal PLT 268 LAB L100.2000 6.2-12.0 fl Normal MPV 10.8 Performed By: #### L100.0500 #### [facility] [address] [place], [address] 12 LEAD ELECTROCARDIOGRAM Observed: 02/27/2018 Status: F Source: [place] 1:04 PM [facility] REPOSITORY [facility] [address] [place] [address] 12 Lead EKG 02/23/18 1015 MR#: [id number] Acct: [id number] Name: GABBI ROLLE Rep #: [id number] : [id number] 72 From: Saleem Zavala MD Attending Dr: Status: DEP ER Ordering Dr: Niya Soria MD Date: 02/23/18 Location: ED Sex: F C Admitted: Test Reason : GI BLEED Blood Pressure : / mmHG Vent. Rate : 073 BPM Atrial Rate : 100 BPM P-R Int : 000 ms QRS Dur : 084 ms QT Int : 396 ms P-R-T Axes : 000 026 046 degrees QTc Int : 436 ms Atrial fibrillation Nonspecific ST and T wave abnormality Abnormal ECG Confirmed by YVONNE BALDWIN, SALEEM ([id number]), graphics editor JONATHON ROLLE ([id number]) on 02/27/2018 1:03:39 PM Referred By: Sara Zarate Confirmed By:SALEEM ZAVALA MD 02/27/18 1303 Date Saleem Zavala MD CC: Sara Zarate OCCUPATIONAL HYGIENIST; Niya Soria MD Signed BMP Collected: 02/27/2018 Status: F Source: [facility] 5:10 AM [facility] REPOSITORY TYPE CODE TESTS RESULT OUT OF REFERENCE UNITS RANGE LAB GLU(LOINC) 82-115 mg/dL Glucose Level 96 LAB NA(LOINC) 136-145 mEq/L Sodium Level 145 LAB K(LOINC) 3.5-5.0 mEq/L Potassium Level 4.1 LAB CL(LOINC) 98-110 mEq/L Chloride High 113 LAB CO2(LOINC) 22-32 mEq/L CO2 25 LAB EBAL(LOINC 4.0-15.0 mEq/L ) Electrolyte Balance 7.0 LAB BUN(LOINC) 8.0-22.0 mg/dL BUN High 23.0 LAB CRE(LOINC) 0.50-1.20 mg/dL Creatinine High Lvl (s) 1.57 LAB BC(LOINC) 10.0-22.0 ratio BUN/Creatinine 14.6 Ratio LAB CA(LOINC) 8.4-10.1 mg/dL Calcium Lvl 8.5 Performed By: #### BMP, GFR, CBC, ADIFF, ANEU #### [place] [address] .GFR Collected: 02/27/2018 Status: F Source: [facility] 5:10 AM [facility] REPOSITORY TYPE CODE TESTS RESULT OUT OF REFERENCE UNITS RANGE LAB GFRAA(LOINC ml/min/1.73 ) sqm GFR 39 [place] Result Comment: GFR Population mean for , Non- Americans Ages 20-29 = 116 mL/min/1.73 sq.m. Ages 30-39 = 107 mL/min/1.73 sq.m. Ages 40-49 = 99 mL/min/1.73 sq.m. Ages 50-59 = 93 mL/min/1.73 sq.m. Ages 60-69 = 85 mL/min/1.73 sq.m. Ages 70+ = 75 mL/min/1.73 sq.m. Chronic Kidney Disease: Less than 60 mL/min/1.73 square meters End Stage Renal Disease: Less than 15 mL/min/1.73 square meters LAB GFRNO(LOINC) ml/min/1.73sqm GFR Non- 32 Result Comment: GFR Population mean for , Non- Americans Ages 20-29 = 116 mL/min/1.73 sq.m. Ages 30-39 = 107 mL/min/1.73 sq.m. Ages 40-49 = 99 mL/min/1.73 sq.m. Ages 50-59 = 93 mL/min/1.73 sq.m. Ages 60-69 = 85 mL/min/1.73 sq.m. Ages 70+ = 75 mL/min/1.73 sq.m. Chronic Kidney Disease: Less than 60 mL/min/1.73 square meters End Stage Renal Disease: Less than 15 mL/min/1.73 square meters Performed By: #### JOSE, GFR, CBC, ADIFF, ANEU #### [address] [address] CBC Collected: 02/27/2018 Status: F Source: [facility] 5:10 AM [facility] REPOSITORY TYPE CODE TESTS RESULT OUT OF REFERENCE UNITS RANGE LAB WBC(LOINC) 4.50-10.80 10 3/mcL WBC 5.10 LAB RBCCT(LOINC 4.10-5.30 10 6/mcL ) Low RBC 2.66 LAB HGB(LOINC) 12.0-16.0 G/dL Low Hgb 8.2 LAB HCT(LOINC) 34.0-46.0 % Low Hct 24.2 LAB MCV(LOINC) 80.0-99.0 fL MCV 91.1 LAB MCH(LOINC) 27.0-33.0 pg MCH 30.7 LAB MCHC(LOINC) 32.0-36.0 G/dL MCHC 33.7 LAB RDW(LOINC) 11.5-15.5 % High RDW 16.1 LAB PLT(LOINC) 150-450 10 3/mcL Platelet 166 LAB MPV(LOINC) 6.6-10.5 fL MPV 9.5 Performed By: #### BMP, GFR, CBC, ADIFF, ANEU #### [address] [address] .AUTO DIFF Collected: 02/27/2018 Status: F Source: [facility] 5:10 AM [facility] REPOSITORY TYPE CODE TESTS RESULT OUT OF REFERENCE UNITS RANGE LAB NEELA(LOINC) 50.0-75.0 % High Neutrophil % 76.3 LAB LYM(LOINC) 20.0-40.0 % Low Lymphocyte % 14.6 LAB MON(LOINC) 2.0-13.0 % Monocyte % 5.6 LAB EO(LOINC) 0.0-6.0 % Eosinophil % 2.8 LAB BAS(LOINC) 0.0-2.5 % Basophil % 0.7 LAB ABLYM(LOIN 0.90-4.32 10 3/mcL C) Low Lymphocyte, 0.70 Absolute LAB NATALIA(LOINC 0.09-1.40 10 3/mcL ) Monocyte, 0.30 Absolute LAB AEOS(LOINC 0.00-0.65 10 3/mcL ) Eosinophil, 0.10 Absolute LAB ABAS(LOINC 0.00-0.27 10 3/mcL ) Basophil, 0.00 Absolute Performed By: #### BMP, GFR, CBC, ADIFF, ANEU #### [address] [address] .NEUABS Collected: 02/27/2018 Status: F Source: [facility] 5:10 AM [facility] REPOSITORY TYPE CODE TESTS RESULT OUT OF REFERENCE UNITS RANGE LAB ANEU(LOINC) 2.25-8.10 10 3/mcL Neutrophil, 3.90 Absolute Performed By: #### BMP, GFR, CBC, ADIFF, ANEU #### [place] [address] CBC Collected: 02/26/2018 Status: F Source: [facility] 3:55 AM [facility] REPOSITORY TYPE CODE TESTS RESULT OUT OF REFERENCE UNITS RANGE LAB WBC(LOINC) 4.50-10.80 10 3/mcL WBC 5.50 LAB RBCCT(LOINC 4.10-5.30 10 6/mcL ) Low RBC 2.55 LAB HGB(LOINC) 12.0-16.0 G/dL Low Hgb 7.9 LAB HCT(LOINC) 34.0-46.0 % Low Hct 22.9 LAB MCV(LOINC) 80.0-99.0 fL MCV 90.1 LAB MCH(LOINC) 27.0-33.0 pg MCH 30.8 LAB MCHC(LOINC) 32.0-36.0 G/dL MCHC 34.2 LAB RDW(LOINC) 11.5-15.5 % High RDW 16.4 LAB PLT(LOINC) 150-450 10 3/mcL Low Platelet 117 LAB MPV(LOINC) 6.6-10.5 fL MPV 9.8 Performed By: #### CBC, ADIFF, ANEU, GFR, BMP #### [place] [address] .AUTO DIFF Collected: 02/26/2018 Status: F Source: [facility] 3:55 AM [facility] REPOSITORY TYPE CODE TESTS RESULT OUT OF REFERENCE UNITS RANGE LAB NEELA(LOINC) 50.0-75.0 % Neutrophil % 74.5 LAB LYM(LOINC) 20.0-40.0 % Low Lymphocyte % 15.4 LAB MON(LOINC) 2.0-13.0 % Monocyte % 5.9 LAB EO(LOINC) 0.0-6.0 % Eosinophil % 3.0 LAB BAS(LOINC) 0.0-2.5 % Basophil % 1.2 LAB ABLYM(LOIN 0.90-4.32 10 3/mcL C) Low Lymphocyte, 0.80 Absolute LAB NATALIA(LOINC 0.09-1.40 10 3/mcL ) Monocyte, 0.30 Absolute LAB AEOS(LOINC 0.00-0.65 10 3/mcL ) Eosinophil, 0.20 Absolute LAB ABAS(LOINC 0.00-0.27 10 3/mcL ) Basophil, 0.10 Absolute Performed By: #### CBC, ADIFF, ANEU, GFR, BMP #### [place] [address] .NEUABS Collected: 02/26/2018 Status: F Source: [facility] 3:55 AM [facility] REPOSITORY TYPE CODE TESTS RESULT OUT OF REFERENCE UNITS RANGE LAB ANEU(LOINC) 2.25-8.10 10 3/mcL Neutrophil, 4.10 Absolute Performed By: #### CBC, ADIFF, ANEU, GFR, BMP #### [place] [address] .GFR Collected: 02/26/2018 Status: F Source: [facility] 3:55 AM [facility] REPOSITORY TYPE CODE TESTS RESULT OUT OF REFERENCE UNITS RANGE LAB GFRAA(LOINC ml/min/1.73 ) sqm GFR 41 [place] Result Comment: GFR Population mean for , Non- Americans Ages 20-29 = 116 mL/min/1.73 sq.m. Ages 30-39 = 107 mL/min/1.73 sq.m. Ages 40-49 = 99 mL/min/1.73 sq.m. Ages 50-59 = 93 mL/min/1.73 sq.m. Ages 60-69 = 85 mL/min/1.73 sq.m. Ages 70+ = 75 mL/min/1.73 sq.m. Chronic Kidney Disease: Less than 60 mL/min/1.73 square meters End Stage Renal Disease: Less than 15 mL/min/1.73 square meters LAB GFRNO(LOINC) ml/min/1.73sqm GFR Non- 34 Result Comment: GFR Population mean for , Non- Americans Ages 20-29 = 116 mL/min/1.73 sq.m. Ages 30-39 = 107 mL/min/1.73 sq.m. Ages 40-49 = 99 mL/min/1.73 sq.m. Ages 50-59 = 93 mL/min/1.73 sq.m. Ages 60-69 = 85 mL/min/1.73 sq.m. Ages 70+ = 75 mL/min/1.73 sq.m. Chronic Kidney Disease: Less than 60 mL/min/1.73 square meters End Stage Renal Disease: Less than 15 mL/min/1.73 square meters Performed By: #### CBC, ADIFF, ANEU, GFR, BMP #### [place] [address] BMP Collected: 02/26/2018 Status: F Source: [facility] 3:55 AM [facility] REPOSITORY TYPE CODE TESTS RESULT OUT OF REFERENCE UNITS RANGE LAB GLU(LOINC) 82-115 mg/dL Glucose Level 87 LAB NA(LOINC) 136-145 mEq/L High Sodium Level 146 LAB K(LOINC) 3.5-5.0 mEq/L High Potassium Level 5.1 Result Comment: Specimen hemolyzed and is inappropriate for potassium assay. LAB CL(LOINC) 98-110 mEq/L Chloride High 114 LAB CO2(LOINC) 22-32 mEq/L CO2 26 LAB EBAL(LOINC) 4.0-15.0 mEq/L Electrolyte Balance 6.0 LAB BUN(LOINC) 8.0-22.0 mg/dL BUN High 31.0 LAB CRE(LOINC) 0.50-1.20 mg/dL Creatinine High Lvl (s) 1.49 LAB BC(LOINC) 10.0-22.0 ratio BUN/Creatinine Ratio 20.8 LAB CA(LOINC) 8.4-10.1 mg/dL Calcium Lvl 8.4 Performed By: #### CBC, ADIFF, ANEU, GFR, BMP #### [address] Collected: 02/25/2018 Status: F Source: [facility] 7:52 PM [facility] REPOSITORY Order Comment: AFTER TRANSFUSION IS COMPLETED. TYPE CODE TESTS RESULT OUT OF RANGE REFERENCE UNITS LAB HGB(LOINC) 12.0-16.0 G/dL Low Hgb 8.8 LAB HCT(LOINC) 34.0-46.0 % Low Hct 26.2 Performed By: #### HH #### [place] [address] RBC (PRODUCT) Collected: 02/25/2018 Status: F Source: [facility] 11:17 AM [facility] REPOSITORY TYPE CODE TESTS RESULT OUT OF REFERENCE UNITS RANGE LAB RBCPR(LOINC ) RBC Product RBC Ready Ready for Pickup Performed By: #### RBCP #### [address] Collected: 02/25/2018 Status: F Source: [facility] 9:35 AM [facility] REPOSITORY TYPE CODE TESTS RESULT OUT OF RANGE REFERENCE UNITS LAB HGB(LOINC) 12.0-16.0 G/dL Low Hgb 7.7 LAB HCT(LOINC) 34.0-46.0 % Low Hct 23.0 Performed By: #### HH #### [place] [address] CBC Collected: 02/25/2018 Status: F Source: [facility] 2:50 AM [facility] REPOSITORY TYPE CODE TESTS RESULT OUT OF REFERENCE UNITS RANGE LAB WBC(LOINC) 4.50-10.80 10 3/mcL WBC 6.40 LAB RBCCT(LOINC 4.10-5.30 10 6/mcL ) Low RBC 2.39 LAB HGB(LOINC) 12.0-16.0 G/dL Low Hgb 7.3 LAB HCT(LOINC) 34.0-46.0 % Low Hct 21.5 LAB MCV(LOINC) 80.0-99.0 fL MCV 90.0 LAB MCH(LOINC) 27.0-33.0 pg MCH 30.4 LAB MCHC(LOINC) 32.0-36.0 G/dL MCHC 33.8 LAB RDW(LOINC) 11.5-15.5 % High RDW 16.0 LAB PLT(LOINC) 150-450 10 3/mcL Low Platelet 125 LAB MPV(LOINC) 6.6-10.5 fL MPV 9.8 Performed By: #### CBC, ADIFF, ANEU, BMP, GFR #### [place] [address] .AUTO DIFF Collected: 02/25/2018 Status: F Source: [facility] 2:50 AM [facility] REPOSITORY TYPE CODE TESTS RESULT OUT OF REFERENCE UNITS RANGE LAB NEELA(LOINC) 50.0-75.0 % Neutrophil % 74.7 LAB LYM(LOINC) 20.0-40.0 % Low Lymphocyte % 15.8 LAB MON(LOINC) 2.0-13.0 % Monocyte % 5.8 LAB EO(LOINC) 0.0-6.0 % Eosinophil % 3.0 LAB BAS(LOINC) 0.0-2.5 % Basophil % 0.7 LAB ABLYM(LOIN 0.90-4.32 10 3/mcL C) Lymphocyte, 1.00 Absolute LAB NATALIA(LOINC 0.09-1.40 10 3/mcL ) Monocyte, 0.40 Absolute LAB AEOS(LOINC 0.00-0.65 10 3/mcL ) Eosinophil, 0.20 Absolute LAB ABAS(LOINC 0.00-0.27 10 3/mcL ) Basophil, 0.00 Absolute Performed By: #### CBC, ADIFF, ANEU, BMP, GFR #### [place] [address] .NEUABS Collected: 02/25/2018 Status: F Source: [facility] 2:50 AM [facility] REPOSITORY TYPE CODE TESTS RESULT OUT OF REFERENCE UNITS RANGE LAB ANEU(LOINC) 2.25-8.10 10 3/mcL Neutrophil, 4.80 Absolute Performed By: #### CBC, ADIFF, ANEU, BMP, GFR #### [place] [address] BMP Collected: 02/25/2018 Status: F Source: [facility] 2:50 AM [facility] REPOSITORY TYPE CODE TESTS RESULT OUT OF REFERENCE UNITS RANGE LAB GLU(LOINC) 82-115 mg/dL Low Glucose Level 80 LAB NA(LOINC) 136-145 mEq/L Sodium High Level 148 LAB K(LOINC) 3.5-5.0 mEq/L Potassium Level 4.4 LAB CL(LOINC) 98-110 mEq/L Chloride High 117 LAB CO2(LOINC) 22-32 mEq/L Low CO2 21 LAB EBAL(LOINC 4.0-15.0 mEq/L ) Electrolyte Balance 10.0 LAB BUN(LOINC) 8.0-22.0 mg/dL BUN High 41.0 LAB CRE(LOINC) 0.50-1.20 mg/dL Creatinine High Lvl (s) 1.79 LAB BC(LOINC) 10.0-22.0 ratio High BUN/Creatinine 22.9 Ratio LAB CA(LOINC) 8.4-10.1 mg/dL Calcium Lvl 8.4 Performed By: #### CBC, ADIFF, ANEU, BMP, GFR #### [place] [address] .GFR Collected: 02/25/2018 Status: F Source: [facility] 2:50 AM [facility] REPOSITORY TYPE CODE TESTS RESULT OUT OF REFERENCE UNITS RANGE LAB GFRAA(LOINC ml/min/1.73 ) sqm GFR 34 [place] Result Comment: GFR Population mean for , Non- Americans Ages 20-29 = 116 mL/min/1.73 sq.m. Ages 30-39 = 107 mL/min/1.73 sq.m. Ages 40-49 = 99 mL/min/1.73 sq.m. Ages 50-59 = 93 mL/min/1.73 sq.m. Ages 60-69 = 85 mL/min/1.73 sq.m. Ages 70+ = 75 mL/min/1.73 sq.m. Chronic Kidney Disease: Less than 60 mL/min/1.73 square meters End Stage Renal Disease: Less than 15 mL/min/1.73 square meters LAB GFRNO(LOINC) ml/min/1.73sqm GFR Non- 28 Result Comment: GFR Population mean for , Non- Americans Ages 20-29 = 116 mL/min/1.73 sq.m. Ages 30-39 = 107 mL/min/1.73 sq.m. Ages 40-49 = 99 mL/min/1.73 sq.m. Ages 50-59 = 93 mL/min/1.73 sq.m. Ages 60-69 = 85 mL/min/1.73 sq.m. Ages 70+ = 75 mL/min/1.73 sq.m. Chronic Kidney Disease: Less than 60 mL/min/1.73 square meters End Stage Renal Disease: Less than 15 mL/min/1.73 square meters Performed By: #### CBC, ADIFF, ANEU, BMP, GFR #### [address] Collected: 02/24/2018 Status: F Source: [facility] 9:09 PM [facility] REPOSITORY TYPE CODE TESTS RESULT OUT OF RANGE REFERENCE UNITS LAB HGB(LOINC) 12.0-16.0 G/dL Low Hgb 7.5 LAB HCT(LOINC) 34.0-46.0 % Low Hct 21.8 Performed By: #### HH #### [place] [address] HH Collected: 02/24/2018 Status: F Source: [facility] 3:50 PM [facility] REPOSITORY TYPE CODE TESTS RESULT OUT OF RANGE REFERENCE UNITS LAB HGB(LOINC) 12.0-16.0 G/dL Low Hgb 7.8 LAB HCT(LOINC) 34.0-46.0 % Low Hct 23.0 Performed By: #### HH #### [place] [address] HH Collected: 02/24/2018 Status: F Source: [facility] 8:22 AM [facility] REPOSITORY TYPE CODE TESTS RESULT OUT OF RANGE REFERENCE UNITS LAB HGB(LOINC) 12.0-16.0 G/dL Low Hgb 7.1 LAB HCT(LOINC) 34.0-46.0 % Low Hct 21.0 Performed By: #### HH #### [place] [address] CBC Collected: 02/24/2018 Status: F Source: [facility] 2:18 AM [facility] REPOSITORY TYPE CODE TESTS RESULT OUT OF REFERENCE UNITS RANGE LAB WBC(LOINC) 4.50-10.80 10 3/mcL WBC 7.70 LAB RBCCT(LOINC 4.10-5.30 10 6/mcL ) Low RBC 2.39 LAB HGB(LOINC) 12.0-16.0 G/dL Low Hgb 7.2 LAB HCT(LOINC) 34.0-46.0 % Low Hct 21.4 LAB MCV(LOINC) 80.0-99.0 fL MCV 89.8 LAB MCH(LOINC) 27.0-33.0 pg MCH 30.3 LAB MCHC(LOINC) 32.0-36.0 G/dL MCHC 33.8 LAB RDW(LOINC) 11.5-15.5 % High RDW 15.8 LAB PLT(LOINC) 150-450 10 3/mcL Low Platelet 146 LAB MPV(LOINC) 6.6-10.5 fL MPV 10.5 Performed By: #### CBC, ADIFF, ANEU, BMP, MG, PHOS, GFR #### [address] [address] .AUTO DIFF Collected: 02/24/2018 Status: F Source: [facility] 2:18 [facility] REPOSITORY TYPE CODE TESTS RESULT OUT OF REFERENCE UNITS RANGE LAB NEELA(LOINC) 50.0-75.0 % High Neutrophil % 86.8 LAB LYM(LOINC) 20.0-40.0 % Low Lymphocyte % 8.1 LAB MON(LOINC) 2.0-13.0 % Monocyte % 3.8 LAB EO(LOINC) 0.0-6.0 % Eosinophil % 0.5 LAB BAS(LOINC) 0.0-2.5 % Basophil % 0.8 LAB ABLYM(LOIN 0.90-4.32 10 3/mcL C) Low Lymphocyte, 0.60 Absolute LAB NATALIA(LOINC 0.09-1.40 10 3/mcL ) Monocyte, 0.30 Absolute LAB AEOS(LOINC 0.00-0.65 10 3/mcL ) Eosinophil, 0.00 Absolute LAB ABAS(LOINC 0.00-0.27 10 3/mcL ) Basophil, 0.10 Absolute Performed By: #### CBC, ADIFF, ANEU, BMP, MG, PHOS, GFR #### [address] [address] .NEUABS Collected: 02/24/2018 Status: F Source: [facility] 2:18 [facility] REPOSITORY TYPE CODE TESTS RESULT OUT OF REFERENCE UNITS RANGE LAB ANEU(LOINC) 2.25-8.10 10 3/mcL Neutrophil, 6.70 Absolute Performed By: #### CBC, ADIFF, ANEU, BMP, MG, PHOS, GFR #### [address] [address] BMP Collected: 02/24/2018 Status: F Source: [place] [employer] 2:18 AM [facility] REPOSITORY TYPE CODE TESTS RESULT OUT OF REFERENCE UNITS RANGE LAB GLU(LOINC) 82-115 mg/dL Glucose High Level 121 LAB NA(LOINC) 136-145 mEq/L Sodium High Level 149 LAB K(LOINC) 3.5-5.0 mEq/L Potassium Level 4.9 LAB CL(LOINC) 98-110 mEq/L Chloride High 117 LAB CO2(LOINC) 22-32 mEq/L Low CO2 21 LAB EBAL(LOINC 4.0-15.0 mEq/L ) Electrolyte Balance 11.0 LAB BUN(LOINC) 8.0-22.0 mg/dL BUN High 57.0 LAB CRE(LOINC) 0.50-1.20 mg/dL Creatinine High Lvl (s) 2.04 LAB BC(LOINC) 10.0-22.0 ratio High BUN/Creatinine 27.9 Ratio LAB CA(LOINC) 8.4-10.1 mg/dL Low Calcium Lvl 8.2 Performed By: #### CBC, ADIFF, ANEU, BMP, MG, PHOS, GFR #### [address] [address] MG Collected: 02/24/2018 Status: F Source: [place] [employer] 2:18 AM [facility] REPOSITORY TYPE CODE TESTS RESULT OUT OF REFERENCE UNITS RANGE LAB MG(LOINC) 1.6-2.4 mg/dL Magnesium Lvl 2.1 Performed By: #### CBC, ADIFF, ANEU, BMP, MG, PHOS, GFR #### [address] [address] PHOS Collected: 02/24/2018 Status: F Source: [facility] 2:18 AM [facility] REPOSITORY TYPE CODE TESTS RESULT OUT OF REFERENCE UNITS RANGE LAB PHOS(LOINC 2.5-4.5 mg/dL ) Phosphorus 3.3 Performed By: #### CBC, ADIFF, ANEU, BMP, MG, PHOS, GFR #### [address] [address] .GFR Collected: 02/24/2018 Status: F Source: [facility] 2:18 AM [facility] REPOSITORY TYPE CODE TESTS RESULT OUT OF REFERENCE UNITS RANGE LAB GFRAA(LOINC ml/min/1.73 ) sqm GFR 29 [place] Result Comment: GFR Population mean for , Non- Americans Ages 20-29 = 116 mL/min/1.73 sq.m. Ages 30-39 = 107 mL/min/1.73 sq.m. Ages 40-49 = 99 mL/min/1.73 sq.m. Ages 50-59 = 93 mL/min/1.73 sq.m. Ages 60-69 = 85 mL/min/1.73 sq.m. Ages 70+ = 75 mL/min/1.73 sq.m. Chronic Kidney Disease: Less than 60 mL/min/1.73 square meters End Stage Renal Disease: Less than 15 mL/min/1.73 square meters LAB GFRNO(LOINC) ml/min/1.73sqm GFR Non- 24 Result Comment: GFR Population mean for , Non- Americans Ages 20-29 = 116 mL/min/1.73 sq.m. Ages 30-39 = 107 mL/min/1.73 sq.m. Ages 40-49 = 99 mL/min/1.73 sq.m. Ages 50-59 = 93 mL/min/1.73 sq.m. Ages 60-69 = 85 mL/min/1.73 sq.m. Ages 70+ = 75 mL/min/1.73 sq.m. Chronic Kidney Disease: Less than 60 mL/min/1.73 square meters End Stage Renal Disease: Less than 15 mL/min/1.73 square meters Performed By: #### CBC, ADIFF, ANEU, BMP, MG, PHOS, GFR #### [address] [address] LAC Collected: 02/23/2018 Status: F Source: [facility] 10:51 PM [facility] REPOSITORY TYPE CODE TESTS RESULT OUT OF REFERENCE UNITS RANGE LAB LAC(LOINC) 0.2-2.0 mmol/L Lactic Acid 1.0 Lvl Performed By: #### LAC #### [address] Collected: 02/23/2018 Status: F Source: [facility] 10:51 PM [facility] REPOSITORY TYPE CODE TESTS RESULT OUT OF RANGE REFERENCE UNITS LAB HGB(LOINC) 12.0-16.0 G/dL Abnormal Alert Hgb 6.9 LAB HCT(LOINC) 34.0-46.0 % Low Hct 20.7 Performed By: #### HH #### [place] [address] RBC (PRODUCT) Collected: 02/23/2018 Status: F Source: [facility] 10:03 [facility] REPOSITORY TYPE CODE TESTS RESULT OUT OF REFERENCE UNITS RANGE LAB RBCPR(LOINC ) RBC Product RBC Ready Ready for Pickup Performed By: #### RBCP #### [address] Collected: 02/23/2018 Status: F Source: [facility] 9:00 [facility] REPOSITORY TYPE CODE TESTS RESULT OUT OF RANGE REFERENCE UNITS LAB HGB(LOINC) 12.0-16.0 G/dL Abnormal Alert Hgb 6.5 LAB HCT(LOINC) 34.0-46.0 % Low Hct 19.0 Performed By: #### HH #### [address] Collected: 02/23/2018 Status: F Source: [facility] 7:43 [facility] REPOSITORY TYPE CODE TESTS RESULT OUT OF RANGE REFERENCE UNITS LAB HGB(LOINC) 12.0-16.0 G/dL Low Hgb 7.1 LAB HCT(LOINC) 34.0-46.0 % Low Hct 21.0 Performed By: #### HH #### [place] [address] NM GASTROINTESTINAL BLOOD Observed: 02/23/2018 Status: F Source: [facility] 6:35 PM [facility] REPOSITORY ORIGINAL NM GASTROINTESTINAL BLOOD LOSS IMAGING CLINICAL STATEMENT: Active GI bleeding. TECHNIQUE: Radiopharmaceutical: Tc-99m SnCI IV Dose:33.3 mCi Labeling of RBCs with an in vitro technique Flow exam for 60 seconds Dynamic planar images of the abdomen and pelvis for 18 minutes. The examination was truncated prematurely due to positive findings by the interventional radiologist assessment consultant to allow for urgent intervention. FINDINGS: There is a normal distribution of radiolabeled RBCs throughout the abdomen and pelvis. Extravasation of RBCs is noted into the RIGHT upper quadrant. IMPRESSION: Active extravasation in the RIGHT upper quadrant. Examination was truncated early due to positive findings for urgent intervention by the interventional radiologist. Interpreted By: Niya Mendez MD Preliminary Report By: Niya Mendez MD Electronically Signed By: Niya Mendez MD Dictated Date: 02/23/2018 9:00:46 PM Prelim Date: 02/23/2018 9:02:51 PM Sign Date: 02/24/2018 4:13:41 PM RBC (PRODUCT) Collected: 02/23/2018 Status: F Source: [facility] 4:38 PM [facility] REPOSITORY Order Comment: please hold 2 U prbc TYPE CODE TESTS RESULT OUT OF REFERENCE UNITS RANGE LAB RBCPR(LOINC ) RBC Product RBC Ready Ready for Pickup Performed By: #### RBCP #### [place] [address] Observed: 02/23/2018 Status: F Source: [facility] 3:29 PM [facility] REPOSITORY . MICRO - Microbiology PROCEDURE: MRSA PCR [*1] SOURCE: [facility] BODY SITE: COLLECTED DATE/TIME: 02/23/2018 15:29 EDT RECEIVED DATE/TIME: 02/23/2018 16:19 EDT START DATE/TIME: 02/23/2018 16:19 EDT FREE TEXT SOURCE: FINAL REPORTS Final Report [] Verified Date/Time/Personnel: 02/23/2018 21:52 EDT MRSA NEGATIVE. MRSA DNA not detected by Real-Time Polymerase Chain Reaction (PCR). A negative result may be due to intermittent colonization. Colonization may vary depending on patient treatment, patient status or exposure to high risk environments. As with all PCR based in vitro tests, extremely low levels of target below the limit of detection of the assay may be detected, but results may not be reproducible. Performing Locations *1: This test was performed at: [facility], [address] [place] [address], [address] [place] [address] Performed By: #### MRPCR #### [place] [address] IR EMBOLIZATION ANY Observed: 02/23/2018 Status: F Source: MAXINE METHOD 2:45 PM [facility] REPOSITORY ORIGINAL PROCEDURE: 1. Ultrasound guidance for vascular access 2. Superior mesenteric arteriogram , first order selection 3. Middle colic arteriogram, 2nd order selection 4. SMA branch arteriogram, 2nd order vessel selection 5. Ileocolic/RIGHT colic trunk arteriogram, 2nd order vessel selection 6. Ileocolic artery arteriogram, 3rd vessel selection 7. RIGHT colic arteriogram, 3rd order vessel selection 8. 2 x RIGHT colic branch arteriogram, 4th order vessel selection 9. 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 Chavarria MATERIALS UTILIZED: 5 Fr sheath 5 Fr SOS2 catheter J-wire Probe cover Micropuncture set M[employer]x [place] [employer] Interlock 018 2 mm x 4 cm Embosphere 700-900 micron, 5% used of 1 vial Direxion Fathom CONTRAST: 95 ml of Omni 350 ANESTHESIA: Moderate sedation was administered and monitored by dedicated nursing personnel. Dosages recorded separately. SEDATION TIME: 76 FLUORO: 19.9 minutes AIR KERMA DOSE: 4862 mGy SITE OF PUNCTURE: Right common femoral artery PROCEDURE: The procedure, risks, and alternatives, were discussed with the patient and all questions were answered. Written informed consent obtained. Accompanying paperwork was verified for accuracy. Directed history and physical exam performed prior to the procedure. Medication reconciliation performed by nursing personnel. Procedure was performed u sing a cap, sterile gown, sterile gloves, a large sterile sheet, hand hygiene and 2% chlorhexidine for cutaneous antisepsis. The patient was positioned supine on the table and prepped and draped in usua l sterile fashion. A critical pause was performed with assisting personnel just prior to the procedure with the patient's identity confirmed using 2 identifiers, confirming site and side. A preliminary ultrasound was performed demonstrating vessel patency and appropriate forward flow. An image was obtained. 5 ml of 2% lidocaine was administered at the puncture site for local anesthesia. A tiny skin incision was made. At least 3 attempts were made to cannulate the RIGHT common femoral artery until successful given morbid obesity. Micropuncture used. A 5 Nigerian sheath was placed over the wire. An injection of the groin demonstrates normal external iliac artery, RAG SORTER, SFA, and profunda femoris artery. There is no evidence of dissection or vasospasm. The sheath is noted at the common femoral artery. The SMA was selected. DSA demonstrates the SMA and its major branches are widely patent. There is no active extravasation to indicate active hemorrhage. No early filling vein is noted to suggest angiody splasia. Variant anatomy noted with a replaced RIGHT hepatic artery. The middle colic artery was selected. DSA demonstrates no active extravasation. The superior branch of the middle colic artery was selected. DSA does not demonstrate active extravasation. Another right-sided SMA branch was selected just proximal to the middle colic artery. Hand-injection demonstrates a RIGHT and LEFT branch. The right-sided branch was then selected. DSA demonstrates no a ctive extravasation. There is communication with the middle colic artery. The ileocolic/RIGHT colic trunk was selected. DSA demonstrates no active extravasation. The ileocolic artery was selected. DSA demonstrates no active extravasation. The RIGHT colic artery was selected. DSA demonstrates no active extravasation. The superior branch of the RIGHT colic artery was selected. DSA demonstrates no active extravasation. The inferior branch of the RIGHT colic artery was selected. At this point, active extravasation was noted from one of the distal branches within the cecum/ascending colon. Microcatheter was advanced as distal as possible however there is difficulty getting into the vasa recta branch supplying the bleeding as there are multiple vessels coursing through this area. Therefore minimal amount of 700-900 um spheres were injected to truncate the small vessels. At this point, a branch that was proximal to the bleed was selected. Contrast injection confirms this vessel to supply the bleed. Therefore coil was deployed. Multiple contrast injections proximal to this demonstrates no further active extravasation. All catheters and wires were removed. All operators changed sterile gloves. The groin was entirely re-prepped with ChloraPrep, and new drapes placed. A closure device was prepared and deployed without i ncident, and with immediate hemostasis. A sterile dressing was applied. COMPLICATIONS: None EBL: Minimal PATIENT CONDITION: Stable, unchanged. IMPRESSION: 1. Diagnostic angiogram of the SMA and multiple branches eventually demonstrates bleeding from a vasa recta branch of the RIGHT colic artery supplying the ascending colon/cecal area. 2. Successful embolization of active extravasation with microspheres and a single coil. Interpreted By: Isael Chavarria MD Preliminary Report By: Isael Chavarria MD Electronically Signed By: Isael Chavarria MD Dictated Date: 02/24/2018 8:39:57 AM Prelim Date: 02/24/2018 8:40:10 AM Sign Date: 03/22/2018 11:37:22 AM LAC Collected: 02/23/2018 Status: F Source: [facility] 2:27 [facility] REPOSITORY TYPE CODE TESTS RESULT OUT OF REFERENCE UNITS RANGE LAB LAC(LOINC) 0.2-2.0 mmol/L Lactic Acid 1.5 Lvl Performed By: #### LAC, FIB, APTT, PRO, CMP, GFR, CBC, ADIFF, ANEU #### [place] [address] FIB Collected: 02/23/2018 Status: F Source: [facility] 2:27 PM [facility] REPOSITORY TYPE CODE TESTS RESULT OUT OF REFERENCE UNITS RANGE LAB FIB(LOINC) 250-550 mg/dL Fibrinogen 516 Performed By: #### LAC, FIB, APTT, PRO, CMP, GFR, CBC, ADIFF, ANEU #### [place] [address] APTT Collected: 02/23/2018 Status: F Source: [facility] 2:27 [facility] REPOSITORY TYPE CODE TESTS RESULT OUT OF REFERENCE UNITS RANGE LAB PDOSE(LOIN C) Heparin dose None (APTT) LAB APTT0(LOIN 25.0-35.0 seconds C) APTT 28.1 Result Comment: For Heparin anticoagulation therapy, the recommended therapeutic range is: 54-77 seconds (APTT Correlation with Anti-Xa therapeutic range of 0.3-0.7 units/ml). PLEASE REFERENCE THE PHARMACY PROTOCOL FOR DOSING. Performed By: #### LAC, FIB, APTT, PRO, CMP, GFR, CBC, ADIFF, ANEU #### [address] [address] PRO Collected: 02/23/2018 Status: F Source: [facility] 2:27 PM [facility] REPOSITORY TYPE CODE TESTS RESULT OUT OF REFERENCE UNITS RANGE LAB PT(LOINC) 9.0-14.5 seconds Protime 12.8 Result Comment: Effective 03/02/08, Protime results may be affected by some antibiotics (i.e. Ciprofloxacin, Azithromycin, Bactrim) which may potentiate the action of oral anticoagulants, with further increases in Protime/INR. LAB INR(LOINC) ratio PT International Ratio 1.1 Result Comment: The [place] [employer] (CHEST, 1992, 102:312S-25S) recommended therapeutic range for oral anticoagulant therapy is: LOW RISK: Prophylaxis of venous thrombosis INR: 2.0-3.0 Treatment of pulmonary embolism 2.0-3.0 Prevention of systemic embolism 2.0-3.0 HIGH RISK: Mechanical prosthetic valves 2.5-3.5 Performed By: #### LAC, FIB, APTT, PRO, CMP, GFR, CBC, ADIFF, ANEU #### [place] [address] CMP Collected: 02/23/2018 Status: F Source: [facility] 2:27 PM [facility] REPOSITORY TYPE CODE TESTS RESULT OUT OF REFERENCE UNITS RANGE LAB GLU(LOINC) 82-115 mg/dL Glucose High Level 122 LAB NA(LOINC) 136-145 mEq/L Sodium High Level 146 LAB K(LOINC) 3.5-5.0 mEq/L Potassium Level 5.0 LAB CL(LOINC) 98-110 mEq/L Chloride High 116 LAB CO2(LOINC) 22-32 mEq/L Low CO2 20 LAB EBAL(LOINC 4.0-15.0 mEq/L ) Electrolyte Balance 10.0 LAB BUN(LOINC) 8.0-22.0 mg/dL BUN High 69.0 LAB CRE(LOINC) 0.50-1.20 mg/dL Creatinine High Lvl (s) 2.32 LAB BC(LOINC) 10.0-22.0 ratio High BUN/Creatinine 29.7 Ratio LAB CA(LOINC) 8.4-10.1 mg/dL Low Calcium Lvl 8.1 LAB PROT(LOINC 6.0-8.5 G/dL ) Total Protein 6.0 LAB ALB(LOINC) 3.2-4.8 G/dL Low Albumin Level 2.9 LAB GLB(LOINC) 1.5-3.8 G/dL Globulin 3.1 LAB AG(LOINC) 0.9-1.6 ratio A/G Ratio 0.9 LAB BILT(LOINC 0.2-1.2 mg/dL ) Bili Total 0.6 LAB AP(LOINC) 38-126 U/L Alk Phos 56 LAB AST(LOINC) 8-34 U/L AST/SGOT 10 LAB ALT(LOINC) 10-49 U/L ALT/SGPT 16 Performed By: #### LAC, FIB, APTT, PRO, CMP, GFR, CBC, ADIFF, ANEU #### [address] [address] .GFR Collected: 02/23/2018 Status: F Source: [facility] 2:27 PM [facility] REPOSITORY TYPE CODE TESTS RESULT OUT OF REFERENCE UNITS RANGE LAB GFRAA(LOINC ml/min/1.73 ) sqm GFR 25 [place] Result Comment: GFR Population mean for , Non- Americans Ages 20-29 = 116 mL/min/1.73 sq.m. Ages 30-39 = 107 mL/min/1.73 sq.m. Ages 40-49 = 99 mL/min/1.73 sq.m. Ages 50-59 = 93 mL/min/1.73 sq.m. Ages 60-69 = 85 mL/min/1.73 sq.m. Ages 70+ = 75 mL/min/1.73 sq.m. Chronic Kidney Disease: Less than 60 mL/min/1.73 square meters End Stage Renal Disease: Less than 15 mL/min/1.73 square meters LAB GFRNO(LOINC) ml/min/1.73sqm GFR Non- 21 Result Comment: GFR Population mean for , Non- Americans Ages 20-29 = 116 mL/min/1.73 sq.m. Ages 30-39 = 107 mL/min/1.73 sq.m. Ages 40-49 = 99 mL/min/1.73 sq.m. Ages 50-59 = 93 mL/min/1.73 sq.m. Ages 60-69 = 85 mL/min/1.73 sq.m. Ages 70+ = 75 mL/min/1.73 sq.m. Chronic Kidney Disease: Less than 60 mL/min/1.73 square meters End Stage Renal Disease: Less than 15 mL/min/1.73 square meters Performed By: #### LAC, FIB, APTT, PRO, CMP, GFR, CBC, ADIFF, ANEU #### [address] [address] CBC Collected: 02/23/2018 Status: F Source: [facility] 2:27 [facility] REPOSITORY TYPE CODE TESTS RESULT OUT OF RANGE REFERENCE UNITS LAB WBC(LOINC) 4.50-10.80 10 3/mcL WBC 6.70 LAB RBCCT(LOIN 4.10-5.30 10 6/mcL C) Low RBC 2.11 LAB HGB(LOINC) 12.0-16.0 G/dL Abnormal Alert Hgb 6.5 LAB HCT(LOINC) 34.0-46.0 % Low Hct 19.7 LAB MCV(LOINC) 80.0-99.0 fL MCV 92.9 LAB MCH(LOINC) 27.0-33.0 pg MCH 30.7 LAB MCHC(LOINC 32.0-36.0 G/dL ) MCHC 33.0 LAB RDW(LOINC) 11.5-15.5 % High RDW 16.6 LAB PLT(LOINC) 150-450 10 3/mcL Platelet 158 LAB MPV(LOINC) 6.6-10.5 fL MPV 10.1 Performed By: #### LAC, FIB, APTT, PRO, CMP, GFR, CBC, ADIFF, ANEU #### [place] [address] .AUTO DIFF Collected: 02/23/2018 Status: F Source: [facility] 2:[address] [place] [address] REPOSITORY TYPE CODE TESTS RESULT OUT OF REFERENCE UNITS RANGE LAB NEELA(LOINC) 50.0-75.0 % High Neutrophil % 80.9 LAB LYM(LOINC) 20.0-40.0 % Low Lymphocyte % 12.6 LAB MON(LOINC) 2.0-13.0 % Monocyte % 4.3 LAB EO(LOINC) 0.0-6.0 % Eosinophil % 1.4 LAB BAS(LOINC) 0.0-2.5 % Basophil % 0.8 LAB ABLYM(LOIN 0.90-4.32 10 3/mcL C) Low Lymphocyte, 0.80 Absolute LAB NATALIA(LOINC 0.09-1.40 10 3/mcL ) Monocyte, 0.30 Absolute LAB AEOS(LOINC 0.00-0.65 10 3/mcL ) Eosinophil, 0.10 Absolute LAB ABAS(LOINC 0.00-0.27 10 3/mcL ) Basophil, 0.10 Absolute Performed By: #### LAC, FIB, APTT, PRO, CMP, GFR, CBC, ADIFF, ANEU #### [place] [address] .NEUABS Collected: 02/23/2018 Status: F Source: [place] [address]:[address] [place] [address] REPOSITORY TYPE CODE TESTS RESULT OUT OF REFERENCE UNITS RANGE LAB ANEU(LOINC) 2.25-8.10 10 3/mcL Neutrophil, 5.40 Absolute Performed By: #### LAC, FIB, APTT, PRO, CMP, GFR, CBC, ADIFF, ANEU #### [place] [address] CAION Collected: 02/23/2018 Status: F Source: [address] REPOSITORY TYPE CODE TESTS RESULT OUT OF REFERENCE UNITS RANGE LAB CAION(LOINC 1.12-1.32 mmol/L ) Low Calcium 1.02 Ionized Performed By: #### CAION, MG, PHOS, TROPI #### [place] [address] MG Collected: 02/23/2018 Status: F Source: [place] [address]:[address] [place] [address] REPOSITORY TYPE CODE TESTS RESULT OUT OF REFERENCE UNITS RANGE LAB MG(LOINC) 1.6-2.4 mg/dL Magnesium Lvl 2.3 Performed By: #### CAION, MG, PHOS, TROPI #### [place] [address] PHOS Collected: 02/23/2018 Status: F Source: [place] [address]:[address] [place] [address] REPOSITORY TYPE CODE TESTS RESULT OUT OF REFERENCE UNITS RANGE LAB PHOS(LOINC 2.5-4.5 mg/dL ) Phosphorus 3.3 Performed By: #### CAION, MG, PHOS, TROPI #### [place] [address] TROPI Collected: 02/23/2018 Status: F Source: [place] [address]:[address] [place] [address] REPOSITORY TYPE CODE TESTS RESULT OUT OF REFERENCE UNITS RANGE LAB TROPI(LOINC 0.000-0.040 ng/mL ) Troponin I <0.015 Result Comment: Troponin I reference ranges (04/26/14): 0.00-0.040 ng/mL Negative and non-diagnostic. >0.040 ng/mL Consistent with cardiac damage, increased clinical risk and possibility of myocardial infarction. Serial measurements, a rise & fall in test results, clinical history, appropriate symptoms and/or ECG changes may help assess possibility of MN. *Other non-acute coronary syndrome conditions such as CHF, myocarditis, pulmonary emboli, sepsis and cardiac surgery could result in myocardial damage and increased troponin levels. Performed By: #### CAION, MG, PHOS, TROPI #### [place] [address] TABO Collected: 02/23/2018 Status: F Source: [facility] 2:27 [facility] REPOSITORY TYPE CODE TESTS RESULT OUT OF RANGE REFERENCE UNITS LAB ABORH(LOINC ) Unknown ABO/Rh A POS Interp Performed By: #### ABORH, ANTIS #### [place] [address] TABS Collected: 02/23/2018 Status: F Source: [facility] 2:27 PM [facility] REPOSITORY TYPE CODE TESTS RESULT OUT OF REFERENCE UNITS RANGE LAB ANST(LOINC ) Antibody Negative ABSC Screen Tango Performed By: #### ABORH, ANTIS #### [place] [address] RBC (PRODUCT) Collected: 02/23/2018 Status: F Source: [facility] 2:16 PM [facility] REPOSITORY Order Comment: please transfuse one unit and hold 2 units of PRBCs TYPE CODE TESTS RESULT OUT OF REFERENCE UNITS RANGE LAB RBCPR(LOINC ) RBC Product RBC Ready Ready for Pickup Performed By: #### RBCP #### [place] [address] EMERGENCY DEPARTMENT Observed: 02/23/2018 Status: F Source: [place] SUMMARY 12:28 PM [facility] REPOSITORY [facility] Medical Records Department [address] [place] [address] Emergency Department Summary 02/23/18 1009 MR#: [id number] Acct: [id number] Name: GABBI ROLLE Rep #: [id number] : 1945 72 From: Niya Soria MD PCP: Sara Zarate NP Status: REG ER - ER Visit Summary Date of Service: 02/23/18 Chief Complaint: GI bleeding History of Present Illness: The patient is a 72 F presents to the emergency department with recurrent GI bleeding. 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 The patient was actually recently hospitalized about 3 weeks ago at [facility] for GI bleed. She was seen here initially, and was found to be significantly anemic with a supra therapeutic INR. She was started on a Protonix drip. She underwent a bleeding scan which showed 2 areas of bleeding from the duodenum and the ascending colon. Given her multiple comorbidities, she was transferred to the ICU at [facility]. While there, patient was transfused. She was kept on a Protonix drip. She states that she underwent endoscopy and colonoscopy but is unsure if she had any treatment. Her bleeding is stopped. The patient had her Coumadin stopped while she was hospitalized. She states she has been doing well at home, but today began to have bloody diarrhea. She does describe some dyspnea. She states that she had 4 episodes of red blood with some scant clots. She denies any abdominal pain. Physical Examination: Vital signs reviewed General: Well-nourished, well-developed Head: Normocephalic, atraumatic Eyes: Pupils equal and reactive, extraocular muscles intact Neck, supple, no lymphadenopathy Heart: Regular rate and rhythm Respiratory: No distress, rales in the bases Abdomen: Soft, nontender, nondistended, no peritoneal signs, rectal exam demonstrates a dark gross red blood Back: [...] but based on her recent hospitalization at [facility] and multiple comorbidities, it was thought that she would best be served back at a tertiary facility. Patient was started on a Protonix drip given history of duodenal ulcer and bleeding. The patient was discussed with Dr. Lanier at [facility] who excepted the patient transfer. She will be transferred to the intensive care unit. Treatment Plan: [] Disposition: Transfer Impression: 1. GI bleed 2. Symptomatic anemia This note was generated with [employer] dictation software. It may contain incorrect words, spelling, and punctuation that were not noted in review of the chart prior to signing ED Disposition - Plan for ED Patient: Chief Complaint: GI Bleed Referrals: Sara Zarate [Primary Care Provider] - What to do if you have Problems For any increased pain, shortness of breath, bleeding, nausea or vomiting, chest pain, or any unexpected problems, contact your Primary Care Provider. Call [employer] [facility] ([phone]) or report to the closest Emergency Room. Call 911 if necessary. 02/23/18 1228 <Electronically signed by Niya Soria MD> Date Niya Soria MD Cosigner Signature (If Indicated): Date CC: Sara Zarate OCCUPATIONAL HYGIENIST CBC W/DIFF, AUTOMATED Collected: 02/23/2018 Status: F Source: [place] 10:15 AM [facility] REPOSITORY TYPE CODE TESTS RESULT OUT OF RANGE REFERENCE UNITS LAB L100.1000 4.4-11.0 K/mm3 Normal WBC 7.0 LAB L100.1200 4.2-5.4 M/mm3 Low RBC 2.19 LAB L100.1300 12.0-15.0 g/dl Low HGB 6.4 LAB L100.1400 37-47 % Low HCT 21.3 LAB L100.1500 81-99 fL Normal MCV 97.3 LAB L100.1600 27.0-32.0 pg Normal MCH 29.2 LAB L100.1700 32-36 g/gl Low MCHC 30.0 LAB L100.1810 11.6-14.6 % High RDW CV 16.9 LAB L100.1820 35.1-43.9 fl High RDW SD 59.9 LAB L100.1900 150-450 K/mm3 Normal PLT 189 LAB L100.2000 6.2-12.0 fl Normal MPV 11.4 LAB L100.2100 47-70 % High NEUT% 81.5 LAB L100.2200 19-41 % Low LY% 11.3 LAB L100.2300 0-10 % Normal MONO% 5.3 LAB L100.2400 0-5 % Normal EO% 1.6 LAB L100.2500 0-1 % Normal BASO% 0.3 LAB L100.2550 0.0-0.9 % Normal IM GRAN % 0.000 Result Comment: IG% - Immature Granulocytes (promyelocytes, myelocytes and metamyelocytes) > 1% indicates that a LEFT SHIFT is Present. LAB L100.2620 2.0-7.7 X10 3/uL Normal Absolute Neut 5.7 LAB L100.2720 0.83-4.51 X10 3/ul Low Absolute Lymph 0.79 Performed By: #### L100.0100 #### [facility] [address] [place], [place], [id number] PROTHROMBIN TIME W/INR Collected: 02/23/2018 Status: F Source: [place] 10:15 AM [facility] REPOSITORY TYPE CODE TESTS RESULT OUT OF RANGE REFERENCE UNITS LAB L300.4150 11.7-14.9 SECONDS High PROTIME 15.2 LAB L300.4200 Normal INR 1.2 Performed By: #### L300.3900, L300.4310 #### [facility] [address] [place], [address] PARTIAL THROMBOPLAST Collected: 02/23/2018 Status: F Source: [place] TIME 10:15 AM [facility] REPOSITORY TYPE CODE TESTS RESULT OUT OF REFERENCE UNITS RANGE LAB L300.4310 24.1-36.2 Seconds High PTT 36.8 Performed By: #### L300.3900, L300.4310 #### [facility] [address] [place], [place], [id number] COMPREHENSIVE METABOLIC Collected: 02/23/2018 Status: F Source: [place] 10:15 AM [facility] REPOSITORY TYPE CODE TESTS RESULT OUT OF RANGE REFERENCE UNITS LAB L501.0100 74-106 mg/dL High GLU 131 Result Comment: Fasting Glucose result greater than or equal to 126 mg/dL suggests DIABETES MELLITUS per A.D.A. criteria. Please note revised GLUCOSE reference range effective 2017. LAB L501.1000 7-18 mg/dL High BUN 66 LAB L501.1100 0.55-1.02 mg/dL High CREAT,SERUM 2.46 Result Comment: The validity of the calculated GFR AND GFRAA in patients over 70 years has not been determined. Clinical correlation is essential. LAB L501.1110 >60 mL/min Low EST GFR 20 Result Comment: Non- GFR Calc LAB L501.1115 >60 mL/min Low EST GFR - AA 25 Result Comment: GFR Calc LAB L501.1255 ml/min Normal Estimated CRCL 19.51 LAB L501.1300 10-20 RATIO High BUN/CRE 26.8 LAB L501.1500 6.4-8. g/dL Normal 2 T PROT 6.5 LAB L501.1800 3.2-5. g/dL Low 0 ALB 3.1 LAB L501.1950 2.2-4. g/dL Normal 2 GLOB 3.4 LAB L501.2000 0.9-2. RATIO Normal 4 A/G 0.9 LAB L501.2200 8.5-10 mg/dL Low .1 CA 8.3 LAB L501.4100 15-37 U/L Low AST 9 LAB L501.4305 45-117 U/L Normal ALK P 63 LAB L501.4405 13-56 U/L Normal ALT 15 LAB L501.4600 0.20-1 mg/dL Normal .00 T BILI 0.40 LAB L501.5300 136-14 mmol/L Normal 5 NA 144 LAB L501.5600 3.5-5. mmol/L Normal 1 K 4.9 LAB L501.5900 98-107 mmol/L High CL 115 LAB L501.6100 21.0-3 mmol/L Normal 2.0 CO2 21.0 LAB L501.6200 5-15 Normal GAP 8 Performed By: #### L500.4050, L501.4010 #### [facility] [address] [place], [address] TROPONIN-I Collected: 02/23/2018 Status: F Source: [place] 10:15 AM [facility] REPOSITORY TYPE CODE TESTS RESULT OUT OF RANGE REFERENCE UNITS LAB L501.4010 <0.045 ng/mL Normal < 0.015 TROPONIN-I Result Comment: TROPONIN-I EXPECTED VALUES <0.045 Negative 0.045 - 0.590 Consistent with Cardiac Damage > OR = 0.600 Critical Value Not every elevated troponin is indicative of MN. These values should be used with clinical judgement in examining the patient's clinical picture for diagnosis. To establish a diagnosis of MN versus myocardial injury, there must be a demonstrated rise and/or fall in the troponin values, in addition to ischemic symptoms, EKG changes, new regional wall motion abnormality, and/or angiographical evidence. PLEASE NOTE: REFERENCE RANGES EDITED 17 Performed By: #### L500.4050, L501.4010 #### [facility] [place], [address] LACTIC ACID Collected: 02/23/2018 Status: F Source: [place] 10:15 AM [facility] REPOSITORY Order Comment: Yes/No query for Sepsis Lactate Rule Y TYPE CODE TESTS RESULT OUT OF REFERENCE UNITS RANGE LAB L503.6005 0.4-2.0 mmol/L High LACTIC ACID 2.1 Result Comment: Critical Result(s) Called at: 10:59:09 02/23/2018 by: Andrew House RN Performed By: #### L503.6005 #### [facility] [address] [place], [address] TYPE AND SCREEN Collected: 02/23/2018 Status: F Source: [place] 10:15 AM [facility] REPOSITORY Order Comment: Reason for Type AND Screen/Red Cells: HEMORRHAGE, GI BLEED TYPE CODE TESTS RESULT OUT OF RANGE REFERENCE UNITS LAB B10.0800 A Normal BLOOD TYPE GEL POSITIVE LAB B100.4000 Normal Antibody NEGATIVE Screen Performed By: #### B101.7450 #### [facility] [address] [place], [address] RC Collected: 02/23/2018 Status: F Source: [place] 10:15 AM [facility] REPOSITORY TYPE CODE TESTS RESULT OUT OF REFERENCE UNITS RANGE LAB U100.0000 [id number] TRANSFUSED PRODUCT: T AND S with Crossmatch, Red Cells COUNT: 1 Performed By: #### U100.0000 #### Non-[facility] - refer to report for specific site CHEST 1 VIEW Observed: 02/23/2018 Status: F Source: [place] (PORTABLE) 10:05 AM [facility] REPOSITORY [facility] Imaging Services [address] [place] [address] Chest 1 View (Portable) MR#: [id number] Acct: [id number] Name: GABBI ROLLE Rep #: [id number] : 1945 F 72 From: Heriberto Dickey PCP: Sara Zarate NP Status: REG ER Study: Chest 1 View (Portable) Date of Exam: 02/23/18 Exam# [id number] Ordering Dr: Niya Soria MD STUDY: X-RAY CHEST REASON FOR EXAM: Female, 72 years old. CHF TECHNIQUE: Single AP portable view of the chest. COMPARISON: 01/27/2018. FINDINGS: Right IJ central line in place with tip in mid SVC. The lungs are clear [...] No acute pulmonary disease. Stable mild cardiomegaly. Electronically Signed: Heriberto Dickey DO at 10:28 EDT , Service support , CC: Sara Zarate OCCUPATIONAL HYGIENIST; Niya Soria MD Propeller Mechanic: Signed CBC W/DIFF, AUTOMATED Collected: 02/17/2018 Status: F Source: [place] 11:10 AM [facility] REPOSITORY Order Comment: CMP, CBCD, PT FOR DR ZARATE REST ARE FOR DR KHAN TYPE CODE TESTS RESULT OUT OF RANGE REFERENCE UNITS LAB L100.1000 4.4-11.0 K/mm3 Normal WBC 6.6 LAB L100.1200 4.2-5.4 M/mm3 Low RBC 2.85 LAB L100.1300 12.0-15.0 g/dl Low HGB 8.5 LAB L100.1400 37-47 % Low HCT 28.0 LAB L100.1500 81-99 fL Normal MCV 98.2 LAB L100.1600 27.0-32.0 pg Normal MCH 29.8 LAB L100.1700 32-36 g/gl Low MCHC 30.4 LAB L100.1810 11.6-14.6 % High RDW CV 16.5 LAB L100.1820 35.1-43.9 fl High RDW SD 55.5 LAB L100.1900 150-450 K/mm3 Normal PLT 181 LAB L100.2000 6.2-12.0 fl High MPV 12.3 LAB L100.2100 47-70 % High NEUT% 80.4 LAB L100.2200 19-41 % Low LY% 12.7 LAB L100.2300 0-10 % Normal MONO% 4.1 LAB L100.2400 0-5 % Normal EO% 2.1 LAB L100.2500 0-1 % Normal BASO% 0.5 LAB L100.2550 0.0-0.9 % Normal IM GRAN % 0.200 Result Comment: IG% - Immature Granulocytes (promyelocytes, myelocytes and metamyelocytes) > 1% indicates that a LEFT SHIFT is Present. LAB L100.2620 2.0-7.7 X10 3/uL Normal Absolute Neut 5.3 LAB L100.2720 0.83-4.51 X10 3/ul Normal Absolute Lymph 0.84 Performed By: #### L100.0100, L500.4050, L503.6030, L503.6550 #### [facility] [address] [place], [address] COMPREHENSIVE METABOLIC Collected: 02/17/2018 Status: F Source: [place] 11:10 AM [facility] REPOSITORY Order Comment: CMP, CBCD, PT FOR DR ZARATE REST ARE FOR DR KHAN TYPE CODE TESTS RESULT OUT OF RANGE REFERENCE UNITS LAB L501.0100 74-106 mg/dL High GLU 124 Result Comment: Fasting Glucose result from 100 to 125 mg/dL suggests IMPAIRED HOMEOSTASIS per A.D.A. criteria. Please note revised GLUCOSE reference range effective 2017. LAB L501.1000 7-18 mg/dL High BUN 56 LAB L501.1100 0.55-1.02 mg/dL High CREAT,SERUM 2.39 Result Comment: The validity of the calculated GFR AND GFRAA in patients over 70 years has not been determined. Clinical correlation is essential. LAB L501.1110 >60 mL/min Low EST GFR 21 Result Comment: Non- GFR Calc LAB L501.1115 >60 mL/min Low EST GFR - AA 25 Result Comment: GFR Calc LAB L501.1255 ml/min Normal Estimated CRCL 20.08 LAB L501.1300 10-20 RATIO High BUN/CRE 23.4 LAB L501.1500 6.4-8. g/dL Normal 2 T PROT 6.9 LAB L501.1800 3.2-5. g/dL Normal 0 ALB 3.3 LAB L501.1950 2.2-4. g/dL Normal 2 GLOB 3.6 LAB L501.2000 0.9-2. RATIO Normal 4 A/G 0.9 LAB L501.2200 8.5-10 mg/dL Normal .1 CA 8.9 LAB L501.4100 15-37 U/L Normal AST 19 LAB L501.4305 45-117 U/L Normal ALK P 67 LAB L501.4405 13-56 U/L Normal ALT 24 LAB L501.4600 0.20-1 mg/dL Normal .00 T BILI 0.30 LAB L501.5300 136-14 mmol/L Normal 5 NA 144 LAB L501.5600 3.5-5. mmol/L Normal 1 K 4.6 LAB L501.5900 98-107 mmol/L High CL 111 LAB L501.6100 21.0-3 mmol/L Normal 2.0 CO2 25.0 LAB L501.6200 5-15 Normal GAP 8 Performed By: #### L100.0100, L500.4050, L503.6030, L503.6550 #### [facility] [address] [place], [place], [id number] IRON+IRON BINDING Collected: 02/17/2018 Status: F Source: [place] [facility] 11:10 AM [facility] REPOSITORY Order Comment: CMP, CBCD, PT FOR DR ELLIOT MARIE ARE FOR DR KHAN TYPE CODE TESTS RESULT OUT OF RANGE REFERENCE UNITS LAB L503.6075 250-450 ug/dL TIBC Normal 339 LAB L503.6150 50-170 ug/dL Low IRON 44 LAB L503.6250 15.0-55.0 % Low IRON SATURATION 13.0 Performed By: #### L100.0100, L500.4050, L503.6030, L503.6550 #### [facility] [address] [place], [place], [address] FERRITIN Collected: 02/17/2018 Status: F Source: [place] 11:10 AM [facility] REPOSITORY Order Comment: CMP, CBCD, PT FOR DR ELLIOT MARIE ARE FOR DR KHAN TYPE CODE TESTS RESULT OUT OF RANGE REFERENCE UNITS LAB L503.6550 8-252 ng/mL Normal FERRITIN 60 Performed By: #### L100.0100, L500.4050, L503.6030, L503.6550 #### [facility] [address] [place], [place], [address] PROTHROMBIN TIME W/INR Collected: 02/17/2018 Status: F Source: [place] 11:10 AM [facility] REPOSITORY Order Comment: CMP, CBCD, PT FOR DR ELLIOT MARIE ARE FOR DR KHAN TYPE CODE TESTS RESULT OUT OF RANGE REFERENCE UNITS LAB L300.4150 11.7-14.9 SECONDS High PROTIME 15.3 LAB L300.4200 Normal INR 1.2 Performed By: #### L300.3900 #### [facility] [address] [place], [address] CBC Collected: 02/10/2018 Status: F Source: [facility] 5:17 AM [facility] REPOSITORY TYPE CODE TESTS RESULT OUT OF REFERENCE UNITS RANGE LAB WBC(LOINC) 4.50-10.80 10 3/mcL WBC 6.50 LAB RBCCT(LOINC 4.10-5.30 10 6/mcL ) Low RBC 2.84 LAB HGB(LOINC) 12.0-16.0 G/dL Low Hgb 8.7 LAB HCT(LOINC) 34.0-46.0 % Low Hct 25.7 LAB MCV(LOINC) 80.0-99.0 fL MCV 90.5 LAB MCH(LOINC) 27.0-33.0 pg MCH 30.5 LAB MCHC(LOINC) 32.0-36.0 G/dL MCHC 33.7 LAB RDW(LOINC) 11.5-15.5 % High RDW 16.9 LAB PLT(LOINC) 150-450 10 3/mcL Platelet 180 LAB MPV(LOINC) 6.6-10.5 fL MPV 10.0 Performed By: #### CBC, ADIFF, ANEU, BMP, GFR #### [place] [address] .AUTO DIFF Collected: 02/10/2018 Status: F Source: [facility] 5:17 AM [facility] REPOSITORY TYPE CODE TESTS RESULT OUT OF REFERENCE UNITS RANGE LAB NEELA(LOINC) 50.0-75.0 % High Neutrophil % 75.4 LAB LYM(LOINC) 20.0-40.0 % Low Lymphocyte % 15.4 LAB MON(LOINC) 2.0-13.0 % Monocyte % 5.7 LAB EO(LOINC) 0.0-6.0 % Eosinophil % 2.9 LAB BAS(LOINC) 0.0-2.5 % Basophil % 0.6 LAB ABLYM(LOIN 0.90-4.32 10 3/mcL C) Lymphocyte, 1.00 Absolute LAB NATALIA(LOINC 0.09-1.40 10 3/mcL ) Monocyte, 0.40 Absolute LAB AEOS(LOINC 0.00-0.65 10 3/mcL ) Eosinophil, 0.20 Absolute LAB ABAS(LOINC 0.00-0.27 10 3/mcL ) Basophil, 0.00 Absolute Performed By: #### CBC, ADIFF, ANEU, BMP, GFR #### [place] [address] .NEUABS Collected: 02/10/2018 Status: F Source: [facility] 5:17 AM [facility] REPOSITORY TYPE CODE TESTS RESULT OUT OF REFERENCE UNITS RANGE LAB ANEU(LOINC) 2.25-8.10 10 3/mcL Neutrophil, 4.90 Absolute Performed By: #### CBC, ADIFF, ANEU, BMP, GFR #### [place] [id number] BMP Collected: 02/10/2018 Status: F Source: [facility] 5:17 AM [facility] REPOSITORY TYPE CODE TESTS RESULT OUT OF REFERENCE UNITS RANGE LAB GLU(LOINC) 82-115 mg/dL Glucose Level 96 LAB NA(LOINC) 136-145 mEq/L Sodium Level 144 LAB K(LOINC) 3.5-5.0 mEq/L Potassium Level 3.9 LAB CL(LOINC) 98-110 mEq/L Chloride 110 LAB CO2(LOINC) 22-32 mEq/L CO2 24 LAB EBAL(LOINC 4.0-15.0 mEq/L ) Electrolyte Balance 10.0 LAB BUN(LOINC) 8.0-22.0 mg/dL BUN High 45.0 LAB CRE(LOINC) 0.50-1.20 mg/dL Creatinine High Lvl (s) 2.13 LAB BC(LOINC) 10.0-22.0 ratio BUN/Creatinine 21.1 Ratio LAB CA(LOINC) 8.4-10.1 mg/dL Calcium Lvl 9.2 Performed By: #### CBC, ADIFF, ANEU, BMP, GFR #### [address] [address] .GFR Collected: 02/10/2018 Status: F Source: [facility] 5:17 AM [facility] REPOSITORY TYPE CODE TESTS RESULT OUT OF REFERENCE UNITS RANGE LAB GFRAA(LOINC ml/min/1.73 ) sqm GFR 27 [place] Result Comment: GFR Population mean for , Non- Americans Ages 20-29 = 116 mL/min/1.73 sq.m. Ages 30-39 = 107 mL/min/1.73 sq.m. Ages 40-49 = 99 mL/min/1.73 sq.m. Ages 50-59 = 93 mL/min/1.73 sq.m. Ages 60-69 = 85 mL/min/1.73 sq.m. Ages 70+ = 75 mL/min/1.73 sq.m. Chronic Kidney Disease: Less than 60 mL/min/1.73 square meters End Stage Renal Disease: Less than 15 mL/min/1.73 square meters LAB GFRNO(LOINC) ml/min/1.73sqm GFR Non- 23 Result Comment: GFR Population mean for , Non- Americans Ages 20-29 = 116 mL/min/1.73 sq.m. Ages 30-39 = 107 mL/min/1.73 sq.m. Ages 40-49 = 99 mL/min/1.73 sq.m. Ages 50-59 = 93 mL/min/1.73 sq.m. Ages 60-69 = 85 mL/min/1.73 sq.m. Ages 70+ = 75 mL/min/1.73 sq.m. Chronic Kidney Disease: Less than 60 mL/min/1.73 square meters End Stage Renal Disease: Less than 15 mL/min/1.73 square meters Performed By: #### CBC, ADIFF, ANEU, BMP, GFR #### [address] [address] RBC (PRODUCT) Collected: 02/09/2018 Status: F Source: [facility] 10:05 AM [facility] REPOSITORY TYPE CODE TESTS RESULT OUT OF REFERENCE UNITS RANGE LAB RBCPR(LOINC ) RBC Product RBC Ready Ready for Pickup Performed By: #### RBCP #### [address] [address] CBC Collected: 02/09/2018 Status: F Source: [facility] 4:45 AM [facility] REPOSITORY TYPE CODE TESTS RESULT OUT OF REFERENCE UNITS RANGE LAB WBC(LOINC) 4.50-10.80 10 3/mcL WBC 6.60 LAB RBCCT(LOINC 4.10-5.30 10 6/mcL ) Low RBC 2.60 LAB HGB(LOINC) 12.0-16.0 G/dL Low Hgb 8.0 LAB HCT(LOINC) 34.0-46.0 % Low Hct 23.6 LAB MCV(LOINC) 80.0-99.0 fL MCV 90.8 LAB MCH(LOINC) 27.0-33.0 pg MCH 30.8 LAB MCHC(LOINC) 32.0-36.0 G/dL MCHC 34.0 LAB RDW(LOINC) 11.5-15.5 % High RDW 17.0 LAB PLT(LOINC) 150-450 10 3/mcL Platelet 167 LAB MPV(LOINC) 6.6-10.5 fL MPV 10.1 Performed By: #### CBC, ADIFF, ANEU #### [place] [address] .AUTO DIFF Collected: 02/09/2018 Status: F Source: [facility] 4:45 AM [facility] REPOSITORY TYPE CODE TESTS RESULT OUT OF REFERENCE UNITS RANGE LAB NEELA(LOINC) 50.0-75.0 % Neutrophil % 73.4 LAB LYM(LOINC) 20.0-40.0 % Low Lymphocyte % 16.9 LAB MON(LOINC) 2.0-13.0 % Monocyte % 6.1 LAB EO(LOINC) 0.0-6.0 % Eosinophil % 3.0 LAB BAS(LOINC) 0.0-2.5 % Basophil % 0.6 LAB ABLYM(LOIN 0.90-4.32 10 3/mcL C) Lymphocyte, 1.10 Absolute LAB NATALIA(LOINC 0.09-1.40 10 3/mcL ) Monocyte, 0.40 Absolute LAB AEOS(LOINC 0.00-0.65 10 3/mcL ) Eosinophil, 0.20 Absolute LAB ABAS(LOINC 0.00-0.27 10 3/mcL ) Basophil, 0.00 Absolute Performed By: #### CBC, ADIFF, ANEU #### [place] [address] .NEUABS Collected: 02/09/2018 Status: F Source: [facility] 4:45 AM [facility] REPOSITORY TYPE CODE TESTS RESULT OUT OF REFERENCE UNITS RANGE LAB ANEU(LOINC) 2.25-8.10 10 3/mcL Neutrophil, 4.80 Absolute Performed By: #### CBC, ADIFF, ANEU #### [place] [address] HH Collected: 02/08/2018 Status: F Source: [facility] 10:32 PM [facility] REPOSITORY TYPE CODE TESTS RESULT OUT OF RANGE REFERENCE UNITS LAB HGB(LOINC) 12.0-16.0 G/dL Low Hgb 8.3 LAB HCT(LOINC) 34.0-46.0 % Low Hct 24.6 Performed By: #### HH #### [place] [address] RBC (PRODUCT) Collected: 02/08/2018 Status: F Source: [facility] 4:53 PM [facility] REPOSITORY TYPE CODE TESTS RESULT OUT OF REFERENCE UNITS RANGE LAB RBCPR(LOINC ) RBC Product RBC Ready Ready for Pickup Performed By: #### RBCP #### [place] [address] TABO Collected: 02/08/2018 Status: F Source: [facility] 11:13 AM [facility] REPOSITORY TYPE CODE TESTS RESULT OUT OF RANGE REFERENCE UNITS LAB ABORH(LOINC ) Unknown ABO/Rh A POS Interp Performed By: #### ABORH, ANTIS #### [place] [address] TABS Collected: 02/08/2018 Status: F Source: [facility] 11:13 AM [facility] REPOSITORY TYPE CODE TESTS RESULT OUT OF REFERENCE UNITS RANGE LAB ANST(LOINC ) Antibody Negative ABSC Screen Tango Performed By: #### ABORH, ANTIS #### [place] [address] PRO Collected: 02/08/2018 Status: F Source: [facility] 5:58 AM [facility] REPOSITORY TYPE CODE TESTS RESULT OUT OF REFERENCE UNITS RANGE LAB PT(LOINC) 9.0-14.5 seconds High Protime 16.1 Result Comment: Effective 03/02/08, Protime results may be affected by some antibiotics (i.e. Ciprofloxacin, Azithromycin, Bactrim) which may potentiate the action of oral anticoagulants, with further increases in Protime/INR. LAB INR(LOINC) ratio PT International Ratio 1.4 Result Comment: The [place] [employer] (CHEST, 1992, 102:312S-25S) recommended therapeutic range for oral anticoagulant therapy is: LOW RISK: Prophylaxis of venous thrombosis INR: 2.0-3.0 Treatment of pulmonary embolism 2.0-3.0 Prevention of systemic embolism 2.0-3.0 HIGH RISK: Mechanical prosthetic valves 2.5-3.5 Performed By: #### PRO, CBC, ADIFF, ANEU, BMP, GFR #### [address] [address] CBC Collected: 02/08/2018 Status: F Source: [facility] 5:58 AM [facility] REPOSITORY TYPE CODE TESTS RESULT OUT OF REFERENCE UNITS RANGE LAB WBC(LOINC) 4.50-10.80 10 3/mcL WBC 7.70 LAB RBCCT(LOINC 4.10-5.30 10 6/mcL ) Low RBC 2.58 LAB HGB(LOINC) 12.0-16.0 G/dL Low Hgb 7.8 LAB HCT(LOINC) 34.0-46.0 % Low Hct 23.4 LAB MCV(LOINC) 80.0-99.0 fL MCV 90.8 LAB MCH(LOINC) 27.0-33.0 pg MCH 30.2 LAB MCHC(LOINC) 32.0-36.0 G/dL MCHC 33.3 LAB RDW(LOINC) 11.5-15.5 % High RDW 17.1 LAB PLT(LOINC) 150-450 10 3/mcL Platelet 196 LAB MPV(LOINC) 6.6-10.5 fL MPV 10.0 Performed By: #### PRO, CBC, ADIFF, ANEU, BMP, GFR #### [address] [address] .AUTO DIFF Collected: 02/08/2018 Status: F Source: [facility] 5:58 AM [facility] REPOSITORY TYPE CODE TESTS RESULT OUT OF REFERENCE UNITS RANGE LAB NEELA(LOINC) 50.0-75.0 % High Neutrophil % 78.5 LAB LYM(LOINC) 20.0-40.0 % Low Lymphocyte % 13.8 LAB MON(LOINC) 2.0-13.0 % Monocyte % 4.3 LAB EO(LOINC) 0.0-6.0 % Eosinophil % 2.9 LAB BAS(LOINC) 0.0-2.5 % Basophil % 0.5 LAB ABLYM(LOIN 0.90-4.32 10 3/mcL C) Lymphocyte, 1.10 Absolute LAB NATALIA(LOINC 0.09-1.40 10 3/mcL ) Monocyte, 0.30 Absolute LAB AEOS(LOINC 0.00-0.65 10 3/mcL ) Eosinophil, 0.20 Absolute LAB ABAS(LOINC 0.00-0.27 10 3/mcL ) Basophil, 0.00 Absolute Performed By: #### PRO, CBC, ADIFF, ANEU, BMP, GFR #### [address] [address] .NEUABS Collected: 02/08/2018 Status: F Source: [facility] 5:58 AM [facility] REPOSITORY TYPE CODE TESTS RESULT OUT OF REFERENCE UNITS RANGE LAB ANEU(LOINC) 2.25-8.10 10 3/mcL Neutrophil, 6.00 Absolute Performed By: #### PRO, CBC, ADIFF, ANEU, BMP, GFR #### [place] [address] BMP Collected: 02/08/2018 Status: F Source: [facility] 5:58 AM [facility] REPOSITORY TYPE CODE TESTS RESULT OUT OF REFERENCE UNITS RANGE LAB GLU(LOINC) 82-115 mg/dL Glucose Level 93 LAB NA(LOINC) 136-145 mEq/L Sodium Level 144 LAB K(LOINC) 3.5-5.0 mEq/L Potassium Level 4.0 LAB CL(LOINC) 98-110 mEq/L Chloride High 112 LAB CO2(LOINC) 22-32 mEq/L CO2 22 LAB EBAL(LOINC 4.0-15.0 mEq/L ) Electrolyte Balance 10.0 LAB BUN(LOINC) 8.0-22.0 mg/dL BUN High 54.0 LAB CRE(LOINC) 0.50-1.20 mg/dL Creatinine High Lvl (s) 2.51 LAB BC(LOINC) 10.0-22.0 ratio BUN/Creatinine 21.5 Ratio LAB CA(LOINC) 8.4-10.1 mg/dL Calcium Lvl 8.8 Performed By: #### PRO, CBC, ADIFF, ANEU, BMP, GFR #### [address] [address] .GFR Collected: 02/08/2018 Status: F Source: [facility] 5:58 AM [facility] REPOSITORY TYPE CODE TESTS RESULT OUT OF REFERENCE UNITS RANGE LAB GFRAA(LOINC ml/min/1.73 ) sqm GFR 23 [place] Result Comment: GFR Population mean for , Non- Americans Ages 20-29 = 116 mL/min/1.73 sq.m. Ages 30-39 = 107 mL/min/1.73 sq.m. Ages 40-49 = 99 mL/min/1.73 sq.m. Ages 50-59 = 93 mL/min/1.73 sq.m. Ages 60-69 = 85 mL/min/1.73 sq.m. Ages 70+ = 75 mL/min/1.73 sq.m. Chronic Kidney Disease: Less than 60 mL/min/1.73 square meters End Stage Renal Disease: Less than 15 mL/min/1.73 square meters LAB GFRNO(LOINC) ml/min/1.73sqm GFR Non- 19 Result Comment: GFR Population mean for , Non- Americans Ages 20-29 = 116 mL/min/1.73 sq.m. Ages 30-39 = 107 mL/min/1.73 sq.m. Ages 40-49 = 99 mL/min/1.73 sq.m. Ages 50-59 = 93 mL/min/1.73 sq.m. Ages 60-69 = 85 mL/min/1.73 sq.m. Ages 70+ = 75 mL/min/1.73 sq.m. Chronic Kidney Disease: Less than 60 mL/min/1.73 square meters End Stage Renal Disease: Less than 15 mL/min/1.73 square meters Performed By: #### PRO, CBC, ADIFF, ANEU, BMP, GFR #### [place] [address] IR PORT CHECK Observed: 02/07/2018 Status: F Source: [facility] W/GUIDE 4:15 PM [facility] REPOSITORY ORIGINAL PROCEDURE: 1. Port check with fluoroscopy CLINICAL INFORMATION: leaking when accessed MATERIALS: Aguero needle ANESTHESIA: Freeze spray FLUOROSCOPY: 0.2 min, 4 mgy air kerma TANK TRUCK MECHANIC: Dr. Chavarria CONTRAST: None PROCEDURE: The procedure, risks, and alternatives, were discussed and all questions were answered. Written informed consent obtained. Accompanying paperwork was verified for accuracy. Directed history and physical exam performed prior to the procedure. Medication reconciliation performed by nursing personnel. Procedure was performed u sing a cap, sterile gloves, a large sterile sheet, hand hygiene and 2% chlorhexidine for cutaneous antisepsis. The patient was positioned supine on the table and prepped and draped in usual sterile [facility] ion. A critical pause was performed with assisting personnel just prior to the procedure with the patient's identity confirmed using 2 identifiers, confirming site and side. Mesh Worker radiograph demonstrates the right chest port to be in good position with the catheter tip near the cavoatrial junction. While spraying freezing spray, the port was accessed with a Aguero needle. Blood return was evident immediately. The port was flushed with saline and then 1000 units of heparin. A sterile dressing was applied. COMPLICATIONS: None. EBL: None. PATIENT CONDITION: Stable, unchanged. IMPRESSION: 1. Port position is normal. 2. Successful access of port with blood return and saline flush. Interpreted By: Isael Chavarria MD Preliminary Report By: Isael Chavarria MD Electronically Signed By: Isael Chavarria MD Dictated Date: 02/07/2018 5:58:26 PM Prelim Date: 02/07/2018 5:58:26 PM Sign Date: 02/07/2018 5:59:48 PM BMP Collected: 02/07/2018 Status: F Source: [facility] 11:42 AM [facility] REPOSITORY Order Comment: Specimen hemolyzed. redraw called to trista 02/07/2018 10:44:06 EDT TYPE CODE TESTS RESULT OUT OF REFERENCE UNITS RANGE LAB GLU(LOINC) 82-115 mg/dL Glucose Level 114 LAB NA(LOINC) 136-145 mEq/L Sodium Level 143 LAB K(LOINC) 3.5-5.0 mEq/L Potassium Level 5.0 LAB CL(LOINC) 98-110 mEq/L Chloride High 114 LAB CO2(LOINC) 22-32 mEq/L Low CO2 21 LAB EBAL(LOINC 4.0-15.0 mEq/L ) Electrolyte Balance 8.0 LAB BUN(LOINC) 8.0-22.0 mg/dL BUN High 53.0 LAB CRE(LOINC) 0.50-1.20 mg/dL Creatinine High Lvl (s) 2.20 LAB BC(LOINC) 10.0-22.0 ratio High BUN/Creatinine 24.1 Ratio LAB CA(LOINC) 8.4-10.1 mg/dL Calcium Lvl 8.8 Performed By: #### CBC, ADIFF, ANEU, BMP, GFR #### [address] [address] .GFR Collected: 02/07/2018 Status: F Source: [facility] 11:42 AM [facility] REPOSITORY TYPE CODE TESTS RESULT OUT OF REFERENCE UNITS RANGE LAB GFRAA(LOINC ml/min/1.73 ) sqm GFR 26 [place] Result Comment: GFR Population mean for , Non- Americans Ages 20-29 = 116 mL/min/1.73 sq.m. Ages 30-39 = 107 mL/min/1.73 sq.m. Ages 40-49 = 99 mL/min/1.73 sq.m. Ages 50-59 = 93 mL/min/1.73 sq.m. Ages 60-69 = 85 mL/min/1.73 sq.m. Ages 70+ = 75 mL/min/1.73 sq.m. Chronic Kidney Disease: Less than 60 mL/min/1.73 square meters End Stage Renal Disease: Less than 15 mL/min/1.73 square meters LAB GFRNO(LOINC) ml/min/1.73sqm GFR Non- 22 Result Comment: GFR Population mean for , Non- Americans Ages 20-29 = 116 mL/min/1.73 sq.m. Ages 30-39 = 107 mL/min/1.73 sq.m. Ages 40-49 = 99 mL/min/1.73 sq.m. Ages 50-59 = 93 mL/min/1.73 sq.m. Ages 60-69 = 85 mL/min/1.73 sq.m. Ages 70+ = 75 mL/min/1.73 sq.m. Chronic Kidney Disease: Less than 60 mL/min/1.73 square meters End Stage Renal Disease: Less than 15 mL/min/1.73 square meters Performed By: #### CBC, ADIFF, ANEU, BMP, GFR #### [address] [address] CBC Collected: 02/07/2018 Status: F Source: [facility] 10:17 AM [facility] REPOSITORY TYPE CODE TESTS RESULT OUT OF REFERENCE UNITS RANGE LAB WBC(LOINC) 4.50-10.80 10 3/mcL WBC 10.80 LAB RBCCT(LOINC 4.10-5.30 10 6/mcL ) Low RBC 2.70 LAB HGB(LOINC) 12.0-16.0 G/dL Low Hgb 8.3 LAB HCT(LOINC) 34.0-46.0 % Low Hct 25.0 LAB MCV(LOINC) 80.0-99.0 fL MCV 92.3 LAB MCH(LOINC) 27.0-33.0 pg MCH 30.7 LAB MCHC(LOINC) 32.0-36.0 G/dL MCHC 33.3 LAB RDW(LOINC) 11.5-15.5 % High RDW 18.3 LAB PLT(LOINC) 150-450 10 3/mcL Platelet 198 LAB MPV(LOINC) 6.6-10.5 fL High MPV 11.1 Performed By: #### CBC, ADIFF, ANEU, BMP, GFR #### [address] [address] .AUTO DIFF Collected: 02/07/2018 Status: F Source: [facility] 10:17 AM [facility] REPOSITORY TYPE CODE TESTS RESULT OUT OF REFERENCE UNITS RANGE LAB NEELA(LOINC) 50.0-75.0 % High Neutrophil % 81.4 LAB LYM(LOINC) 20.0-40.0 % Low Lymphocyte % 9.8 LAB MON(LOINC) 2.0-13.0 % Monocyte % 4.2 LAB EO(LOINC) 0.0-6.0 % Eosinophil % 3.2 LAB BAS(LOINC) 0.0-2.5 % Basophil % 1.4 LAB ABLYM(LOIN 0.90-4.32 10 3/mcL C) Lymphocyte, 1.10 Absolute LAB NATALIA(LOINC 0.09-1.40 10 3/mcL ) Monocyte, 0.50 Absolute LAB AEOS(LOINC 0.00-0.65 10 3/mcL ) Eosinophil, 0.30 Absolute LAB ABAS(LOINC 0.00-0.27 10 3/mcL ) Basophil, 0.20 Absolute Performed By: #### CBC, ADIFF, ANEU, BMP, GFR #### [address] [address] .NEUABS Collected: 02/07/2018 Status: F Source: [facility] 10:17 AM [facility] REPOSITORY TYPE CODE TESTS RESULT OUT OF REFERENCE UNITS RANGE LAB ANEU(LOINC) 2.25-8.10 10 3/mcL High Neutrophil, 8.80 Absolute Performed By: #### CBC, ADIFF, ANEU, BMP, GFR #### [address] [address] HH Collected: 02/06/2018 Status: F Source: [facility] 11:19 AM [facility] REPOSITORY TYPE CODE TESTS RESULT OUT OF RANGE REFERENCE UNITS LAB HGB(LOINC) 12.0-16.0 G/dL Low Hgb 7.9 LAB HCT(LOINC) 34.0-46.0 % Low Hct 24.1 Performed By: #### HH #### [place] [address] 12 LEAD ELECTROCARDIOGRAM Observed: 02/06/2018 Status: F Source: [place] 9:00 AM [facility] REPOSITORY [facility] Cardiovascular Services [address] [place] [id number] 12 Lead EKG 02/04/18 1427 MR#: [id number] Acct: [id number] Name: GABBI ROLLE Alexandro Rep #: [id number] : 1945 72 From: Niraj Raymundo MD Attending Dr: Status: DEP ER Ordering Dr: Hayde Ruvalcaba DO Date: 02/04/18 Location: ED Sex: F C Admitted: Test Reason : Blood Pressure : / mmHG Vent. Rate : 069 BPM Atrial Rate : 053 BPM P-R Int : 000 ms QRS Dur : 106 ms QT Int : 382 ms P-R-T Axes : 000 034 109 degrees QTc Int : 409 ms Atrial fibrillation Nonspecific ST and T wave abnormality Abnormal ECG Confirmed by NIRAJ RAYMUNDO MD ([id number]), graphics editor JONATHON ROLLE ([id number]) on 02/06/2018 9:00:22 AM Referred By: SAMMIE Confirmed By:NIRAJ RAYMUNDO MD 02/06/18 0900 Date Niraj Raymundo MD CC: Sara Zarate OCCUPATIONAL HYGIENIST; Remus Ungur DO Signed BMP Collected: 02/06/2018 Status: F Source: [facility] 5:57 AM [facility] REPOSITORY TYPE CODE TESTS RESULT OUT OF REFERENCE UNITS RANGE LAB GLU(LOINC) 82-115 mg/dL Glucose Level 99 LAB NA(LOINC) 136-145 mEq/L Sodium High Level 148 LAB K(LOINC) 3.5-5.0 mEq/L Potassium Level 4.4 LAB CL(LOINC) 98-110 mEq/L Chloride High 118 LAB CO2(LOINC) 22-32 mEq/L Low CO2 21 LAB EBAL(LOINC 4.0-15.0 mEq/L ) Electrolyte Balance 9.0 LAB BUN(LOINC) 8.0-22.0 mg/dL BUN High 70.0 LAB CRE(LOINC) 0.50-1.20 mg/dL Creatinine High Lvl (s) 2.22 LAB BC(LOINC) 10.0-22.0 ratio High BUN/Creatinine 31.5 Ratio LAB CA(LOINC) 8.4-10.1 mg/dL Calcium Lvl 8.7 Performed By: #### BMP, GFR, CBC, ADIFF, ANEU #### [place] [address] .GFR Collected: 02/06/2018 Status: F Source: [facility] 5:57 AM [facility] REPOSITORY TYPE CODE TESTS RESULT OUT OF REFERENCE UNITS RANGE LAB GFRAA(LOINC ml/min/1.73 ) sqm GFR 26 [place] Result Comment: GFR Population mean for , Non- Americans Ages 20-29 = 116 mL/min/1.73 sq.m. Ages 30-39 = 107 mL/min/1.73 sq.m. Ages 40-49 = 99 mL/min/1.73 sq.m. Ages 50-59 = 93 mL/min/1.73 sq.m. Ages 60-69 = 85 mL/min/1.73 sq.m. Ages 70+ = 75 mL/min/1.73 sq.m. Chronic Kidney Disease: Less than 60 mL/min/1.73 square meters End Stage Renal Disease: Less than 15 mL/min/1.73 square meters LAB GFRNO(LOINC) ml/min/1.73sqm GFR Non- 22 Result Comment: GFR Population mean for , Non- Americans Ages 20-29 = 116 mL/min/1.73 sq.m. Ages 30-39 = 107 mL/min/1.73 sq.m. Ages 40-49 = 99 mL/min/1.73 sq.m. Ages 50-59 = 93 mL/min/1.73 sq.m. Ages 60-69 = 85 mL/min/1.73 sq.m. Ages 70+ = 75 mL/min/1.73 sq.m. Chronic Kidney Disease: Less than 60 mL/min/1.73 square meters End Stage Renal Disease: Less than 15 mL/min/1.73 square meters Performed By: #### JOSE, GFR, CBC, ADIFF, ANEU #### [address] [id number] CBC Collected: 02/06/2018 Status: F Source: [facility] 5:57 AM [facility] REPOSITORY TYPE CODE TESTS RESULT OUT OF REFERENCE UNITS RANGE LAB WBC(LOINC) 4.50-10.80 10 3/mcL WBC 10.50 LAB RBCCT(LOINC 4.10-5.30 10 6/mcL ) Low RBC 2.63 LAB HGB(LOINC) 12.0-16.0 G/dL Low Hgb 7.8 LAB HCT(LOINC) 34.0-46.0 % Low Hct 23.4 LAB MCV(LOINC) 80.0-99.0 fL MCV 88.8 LAB MCH(LOINC) 27.0-33.0 pg MCH 29.6 LAB MCHC(LOINC) 32.0-36.0 G/dL MCHC 33.4 LAB RDW(LOINC) 11.5-15.5 % High RDW 17.6 LAB PLT(LOINC) 150-450 10 3/mcL Platelet 164 LAB MPV(LOINC) 6.6-10.5 fL High MPV 11.1 Performed By: #### BMP, GFR, CBC, ADIFF, ANEU #### [address] [id number] .AUTO DIFF Collected: 02/06/2018 Status: F Source: [facility] 5:57 AM [facility] REPOSITORY TYPE CODE TESTS RESULT OUT OF REFERENCE UNITS RANGE LAB NEELA(LOINC) 50.0-75.0 % High Neutrophil % 78.7 LAB LYM(LOINC) 20.0-40.0 % Low Lymphocyte % 13.6 LAB MON(LOINC) 2.0-13.0 % Monocyte % 5.7 LAB EO(LOINC) 0.0-6.0 % Eosinophil % 1.6 LAB BAS(LOINC) 0.0-2.5 % Basophil % 0.4 LAB ABLYM(LOIN 0.90-4.32 10 3/mcL C) Lymphocyte, 1.40 Absolute LAB NATALIA(LOINC 0.09-1.40 10 3/mcL ) Monocyte, 0.60 Absolute LAB AEOS(LOINC 0.00-0.65 10 3/mcL ) Eosinophil, 0.20 Absolute LAB ABAS(LOINC 0.00-0.27 10 3/mcL ) Basophil, 0.00 Absolute Performed By: #### BMP, GFR, CBC, ADIFF, ANEU #### [place] [address] .NEUABS Collected: 02/06/2018 Status: F Source: [facility] 5:57 AM [facility] REPOSITORY TYPE CODE TESTS RESULT OUT OF REFERENCE UNITS RANGE LAB ANEU(LOINC) 2.25-8.10 10 3/mcL High Neutrophil, 8.20 Absolute Performed By: #### BMP, GFR, CBC, ADIFF, ANEU #### [place] [address] HH Collected: 02/05/2018 Status: F Source: [facility] 11:38 PM [facility] REPOSITORY TYPE CODE TESTS RESULT OUT OF RANGE REFERENCE UNITS LAB HGB(LOINC) 12.0-16.0 G/dL Abnormal Alert Hgb 6.9 LAB HCT(LOINC) 34.0-46.0 % Low Hct 21.0 Performed By: #### HH #### [place] [address] HGB Collected: 02/05/2018 Status: F Source: [facility] 6:18 PM [facility] REPOSITORY TYPE CODE TESTS RESULT OUT OF RANGE REFERENCE UNITS LAB HGB(LOINC) 12.0-16.0 G/dL Low Hgb 7.5 Performed By: #### HGB #### [place] [address] RBC (PRODUCT) Collected: 02/05/2018 Status: F Source: [facility] 3:15 PM [facility] REPOSITORY TYPE CODE TESTS RESULT OUT OF REFERENCE UNITS RANGE LAB RBCPR(LOINC ) RBC Product RBC Ready Ready for Pickup Performed By: #### RBCP #### [place] [address] DOWNTIME REPORT Observed: 02/05/2018 Status: F Source: [place] 1:37 PM [facility] REPOSITORY [facility] Medical Records Department [address] [place] [address] Downtime Report MR#: [id number] Acct: [id number] Name: GABBI ROLLE Rep #: [id number] : 1945 72 From: Migue Rolle MD PCP: Sara Zarate NP Status: DIS IN This patient was seen during an EMR downtime January 20, 2018 - January 27, 2018. This patient may have a combination of paper and electronic documentation or all paper documentation. All documentation is viewable within the e-chart portion of [employer] for each patient visit. FINAL SURGICAL Observed: 02/05/2018 Status: F Source: [facility] PATHOLOGY REPORT 12:22 PM [facility] REPOSITORY . Pathology Reports Accession: Collected Date/Time: Received Date/Time: Pathologist: [id number] 02/05/2018 12:22 EDT 02/05/2018 12:22 EDT MD CHAMP OLMOS Final Surgical Pathology Report DIAGNOSIS: STOMACH, BIOPSY: - MILD CHRONIC GASTRITIS. - NO ACTIVE GASTRITIS OR HELICOBACTER. CLINICAL INFORMATION: Procedure: EGD WITH ANESTHESIA WITH GASTRIC BIOPSIES Preoperative diagnosis: GI BLEED Postoperative diagnosis: SAME SPECIMEN: A STOM, BX - GASTRIC BIOPSIES FOR EROSIVE GASTRITIS GROSS DESCRIPTION: Received in formalin labeled gastric biopsies are 2 melchor glistening soft tissues averaging 0.3 cm. TS -1 Dictated by CHIQUITA DOE ([facility]) MICROSCOPIC DESCRIPTION: Slides reviewed. Electronically Signed by Pathology Report verified by [facility] Electronically signed by CHAMP OLMOS MD Sign out Date: 02/06/2018 16:18 Performing Lab: [address] Performed By: #### SPFR #### [place] [address] FFP (PRODUCT) Collected: 02/05/2018 Status: F Source: [facility] 9:04 AM [facility] REPOSITORY TYPE CODE TESTS RESULT OUT OF REFERENCE UNITS RANGE LAB FFPPR(LOINC ) FFP Product FFP Ready Ready for Pickup Performed By: #### FFP #### [address] [address] UA Collected: 02/05/2018 Status: F Source: [facility] 8:07 AM [facility] REPOSITORY TYPE CODE TESTS RESULT OUT OF RANGE REFERENCE UNITS LAB SPCUA(DWIGHT NC) UA Specimen Type Void LAB CLRUA(DWIGHT NC) UA Color Yellow LAB APPUA(DWIGHT Clear NC) UA Appear Unknown Cloudy LAB SGUA(LOIN 1.006-1.029 C) UA Spec Grav 1.015 LAB GLUA(LOIN Negative mg/dL C) UA Glucose Negative LAB BILUA(DWIGHT Neg-Trace NC) UA Bili Negative LAB KETUA(DWIGHT Neg-Trace mg/dL NC) UA Ketones Negative LAB BLDUA(DWIGHT Neg-Trace NC) UA Blood Unknown Large LAB PHUA(LOIN 5.0 - 8.0 C) UA pH 7.0 LAB PROUA(DWIGHT Negative mg/dL NC) UA Protein 30 LAB UROUA(DWIGHT 0.2-1.0 E.U./dL NC) UA Urobilinogen 0.2 LAB NITUA(DWIGHT Negative NC) UA Nitrite Unknown Positive LAB LEUUA(DWIGHT Negative NC) UA Leuk Est Unknown Large Performed By: #### UA, UAMIC #### [address] [address] UAMIC Collected: 02/05/2018 Status: F Source: [facility] 8:07 AM [facility] REPOSITORY TYPE CODE TESTS RESULT OUT OF RANGE REFERENCE UNITS LAB RBCUA(LOIN 0-2 /hpf C) Unknown UA RBC 3-5 LAB WBCUA(LOIN 0-5 /hpf C) UA WBC 3-5 LAB EPIUA(LOIN 0-20 /hpf C) UA Squam Epithelial 3-5 LAB MUCUA(LOIN /hpf C) UA Mucous 1+ LAB AMOUA(LOIN /hpf C) UA Amorphus Trace LAB BACUA(LOIN Negative /hpf C) Unknown UA Bacteria 3+ Performed By: #### UA, UAMIC #### [address] [address] CBC Collected: 02/05/2018 Status: F Source: [facility] 4:52 AM [facility] REPOSITORY TYPE CODE TESTS RESULT OUT OF REFERENCE UNITS RANGE LAB WBC(LOINC) 4.50-10.80 10 3/mcL WBC 6.20 LAB RBCCT(LOINC 4.10-5.30 10 6/mcL ) Low RBC 2.31 LAB HGB(LOINC) 12.0-16.0 G/dL Low Hgb 7.0 LAB HCT(LOINC) 34.0-46.0 % Low Hct 20.6 LAB MCV(LOINC) 80.0-99.0 fL MCV 88.8 LAB MCH(LOINC) 27.0-33.0 pg MCH 30.3 LAB MCHC(LOINC) 32.0-36.0 G/dL MCHC 34.1 LAB RDW(LOINC) 11.5-15.5 % High RDW 17.3 LAB PLT(LOINC) 150-450 10 3/mcL Platelet 164 LAB MPV(LOINC) 6.6-10.5 fL MPV 9.8 Performed By: #### CBC, ADIFF, ANEU, CMP, GFR, PRO #### [place] [address] .AUTO DIFF Collected: 02/05/2018 Status: F Source: [facility] 4:52 [facility] REPOSITORY TYPE CODE TESTS RESULT OUT OF REFERENCE UNITS RANGE LAB NEELA(LOINC) 50.0-75.0 % Neutrophil % 73.5 LAB LYM(LOINC) 20.0-40.0 % Low Lymphocyte % 18.9 LAB MON(LOINC) 2.0-13.0 % Monocyte % 5.3 LAB EO(LOINC) 0.0-6.0 % Eosinophil % 1.3 LAB BAS(LOINC) 0.0-2.5 % Basophil % 1.0 LAB ABLYM(LOIN 0.90-4.32 10 3/mcL C) Lymphocyte, 1.20 Absolute LAB NATALIA(LOINC 0.09-1.40 10 3/mcL ) Monocyte, 0.30 Absolute LAB AEOS(LOINC 0.00-0.65 10 3/mcL ) Eosinophil, 0.10 Absolute LAB ABAS(LOINC 0.00-0.27 10 3/mcL ) Basophil, 0.10 Absolute Performed By: #### CBC, ADIFF, ANEU, CMP, GFR, PRO #### [address] [address] .NEUABS Collected: 02/05/2018 Status: F Source: [facility] 4:52 AM [facility] REPOSITORY TYPE CODE TESTS RESULT OUT OF REFERENCE UNITS RANGE LAB ANEU(LOINC) 2.25-8.10 10 3/mcL Neutrophil, 4.50 Absolute Performed By: #### CBC, ADIFF, ANEU, CMP, GFR, PRO #### [address] [address] CMP Collected: 02/05/2018 Status: F Source: [facility] 4:52 AM [facility] REPOSITORY TYPE CODE TESTS RESULT OUT OF REFERENCE UNITS RANGE LAB GLU(LOINC) 82-115 mg/dL Glucose Level 90 LAB NA(LOINC) 136-145 mEq/L Sodium High Level 146 LAB K(LOINC) 3.5-5.0 mEq/L Potassium Level 5.0 LAB CL(LOINC) 98-110 mEq/L Chloride High 115 LAB CO2(LOINC) 22-32 mEq/L Low CO2 21 LAB EBAL(LOINC 4.0-15.0 mEq/L ) Electrolyte Balance 10.0 LAB BUN(LOINC) 8.0-22.0 mg/dL BUN High 83.0 LAB CRE(LOINC) 0.50-1.20 mg/dL Creatinine High Lvl (s) 2.66 LAB BC(LOINC) 10.0-22.0 ratio High BUN/Creatinine 31.2 Ratio LAB CA(LOINC) 8.4-10.1 mg/dL Calcium Lvl 8.5 LAB PROT(LOINC 6.0-8.5 G/dL ) Low Total Protein 5.4 LAB ALB(LOINC) 3.2-4.8 G/dL Low Albumin Level 2.9 LAB GLB(LOINC) 1.5-3.8 G/dL Globulin 2.5 LAB AG(LOINC) 0.9-1.6 ratio A/G Ratio 1.2 LAB BILT(LOINC 0.2-1.2 mg/dL ) Bili Total 0.5 LAB AP(LOINC) 38-126 U/L Alk Phos 50 LAB AST(LOINC) 8-34 U/L AST/SGOT 10 LAB ALT(LOINC) 10-49 U/L ALT/SGPT 16 Performed By: #### CBC, ADIFF, ANEU, CMP, GFR, PRO #### [address] [address] .GFR Collected: 02/05/2018 Status: F Source: [facility] 4:52 AM [facility] REPOSITORY TYPE CODE TESTS RESULT OUT OF REFERENCE UNITS RANGE LAB GFRAA(LOINC ml/min/1.73 ) sqm GFR 21 [place] Result Comment: GFR Population mean for , Non- Americans Ages 20-29 = 116 mL/min/1.73 sq.m. Ages 30-39 = 107 mL/min/1.73 sq.m. Ages 40-49 = 99 mL/min/1.73 sq.m. Ages 50-59 = 93 mL/min/1.73 sq.m. Ages 60-69 = 85 mL/min/1.73 sq.m. Ages 70+ = 75 mL/min/1.73 sq.m. Chronic Kidney Disease: Less than 60 mL/min/1.73 square meters End Stage Renal Disease: Less than 15 mL/min/1.73 square meters LAB GFRNO(LOINC) ml/min/1.73sqm GFR Non- 18 Result Comment: GFR Population mean for , Non- Americans Ages 20-29 = 116 mL/min/1.73 sq.m. Ages 30-39 = 107 mL/min/1.73 sq.m. Ages 40-49 = 99 mL/min/1.73 sq.m. Ages 50-59 = 93 mL/min/1.73 sq.m. Ages 60-69 = 85 mL/min/1.73 sq.m. Ages 70+ = 75 mL/min/1.73 sq.m. Chronic Kidney Disease: Less than 60 mL/min/1.73 square meters End Stage Renal Disease: Less than 15 mL/min/1.73 square meters Performed By: #### CBC, ADIFF, ANEU, CMP, GFR, PRO #### [address] [address] PRO Collected: 02/05/2018 Status: F Source: [facility] 4:52 AM [facility] REPOSITORY TYPE CODE TESTS RESULT OUT OF REFERENCE UNITS RANGE LAB PT(LOINC) 9.0-14.5 seconds High Protime 26.8 Result Comment: Effective 03/02/08, Protime results may be affected by some antibiotics (i.e. Ciprofloxacin, Azithromycin, Bactrim) which may potentiate the action of oral anticoagulants, with further increases in Protime/INR. LAB INR(LOINC) ratio PT International Ratio 2.3 Result Comment: The [place] [employer] (CHEST, 1992, 102:312S-25S) recommended therapeutic range for oral anticoagulant therapy is: LOW RISK: Prophylaxis of venous thrombosis INR: 2.0-3.0 Treatment of pulmonary embolism 2.0-3.0 Prevention of systemic embolism 2.0-3.0 HIGH RISK: Mechanical prosthetic valves 2.5-3.5 Performed By: #### CBC, ADIFF, ANEU, CMP, GFR, PRO #### [place] [address] RBC (PRODUCT) Collected: 02/05/2018 Status: F Source: [facility] 1:50 AM [facility] REPOSITORY TYPE CODE TESTS RESULT OUT OF REFERENCE UNITS RANGE LAB RBCPR(LOINC ) RBC Product RBC Ready Ready for Pickup Performed By: #### RBCP #### [address] Collected: 02/05/2018 Status: F Source: [facility] 1:04 AM [facility] REPOSITORY TYPE CODE TESTS RESULT OUT OF RANGE REFERENCE UNITS LAB HGB(LOINC) 12.0-16.0 G/dL Abnormal Alert Hgb 6.7 LAB HCT(LOINC) 34.0-46.0 % Low Hct 20.0 Performed By: #### HH #### [place] [address] Observed: 02/04/2018 Status: F Source: [facility] MRPCR 11:13 PM [facility] REPOSITORY . MICRO - Microbiology PROCEDURE: MRSA PCR [*1] SOURCE: Nares BODY SITE: COLLECTED DATE/TIME: 02/04/2018 23:13 EDT RECEIVED DATE/TIME: 02/04/2018 23:30 EDT START DATE/TIME: 02/04/2018 23:30 EDT FREE TEXT SOURCE: FINAL REPORTS Final Report [] Verified Date/Time/Personnel: 02/05/2018 11:40 EDT MRSA NEGATIVE. MRSA DNA not detected by Real-Time Polymerase Chain Reaction (PCR). A negative result may be due to intermittent colonization. Colonization may vary depending on patient treatment, patient status or exposure to high risk environments. As with all PCR based in vitro tests, extremely low levels of target below the limit of detection of the assay may be detected, but results may not be reproducible. Performing Locations *1: This test was performed at: [facility], [address] [place] [address], [address] [place] [address] Performed By: #### MRPCR #### [place] [address] FFP (PRODUCT) Collected: 02/04/2018 Status: F Source: [facility] 8:44 PM [facility] REPOSITORY TYPE CODE TESTS RESULT OUT OF REFERENCE UNITS RANGE LAB FFPPR(LOINC ) FFP Product FFP Ready Ready for Pickup Performed By: #### FFP #### [place] [id number] CBC Collected: 02/04/2018 Status: F Source: [facility] 8:18 PM [facility] REPOSITORY TYPE CODE TESTS RESULT OUT OF RANGE REFERENCE UNITS LAB WBC(LOINC) 4.50-10.80 10 3/mcL WBC 6.20 LAB RBCCT(LOIN 4.10-5.30 10 6/mcL C) Low RBC 2.24 LAB HGB(LOINC) 12.0-16.0 G/dL Abnormal Alert Hgb 6.8 LAB HCT(LOINC) 34.0-46.0 % Low Hct 20.5 LAB MCV(LOINC) 80.0-99.0 fL MCV 91.6 LAB MCH(LOINC) 27.0-33.0 pg MCH 30.4 LAB MCHC(LOINC 32.0-36.0 G/dL ) MCHC 33.2 LAB RDW(LOINC) 11.5-15.5 % High RDW 16.5 LAB PLT(LOINC) 150-450 10 3/mcL Platelet 193 LAB MPV(LOINC) 6.6-10.5 fL High MPV 10.8 Performed By: #### CBC, MG, PHOS, CMP, GFR, TROPI, FIB, APTT, PRO, DIFF, MORPH #### [address] [address] MG Collected: 02/04/2018 Status: F Source: [facility] 8:18 PM [facility] REPOSITORY TYPE CODE TESTS RESULT OUT OF REFERENCE UNITS RANGE LAB MG(LOINC) 1.6-2.4 mg/dL High Magnesium Lvl 3.2 Performed By: #### CBC, MG, PHOS, CMP, GFR, TROPI, FIB, APTT, PRO, DIFF, MORPH #### [place] [id number] PHOS Collected: 02/04/2018 Status: F Source: [facility] 8:18 PM [facility] REPOSITORY TYPE CODE TESTS RESULT OUT OF REFERENCE UNITS RANGE LAB PHOS(LOINC 2.5-4.5 mg/dL ) High Phosphorus 5.5 Performed By: #### CBC, MG, PHOS, CMP, GFR, TROPI, FIB, APTT, PRO, DIFF, MORPH #### [place] [address] CMP Collected: 02/04/2018 Status: F Source: [facility] 8:18 PM [facility] REPOSITORY TYPE CODE TESTS RESULT OUT OF REFERENCE UNITS RANGE LAB GLU(LOINC) 82-115 mg/dL Glucose Level 109 LAB NA(LOINC) 136-145 mEq/L Sodium Level 142 LAB K(LOINC) 3.5-5.0 mEq/L Potassium High Level 5.2 LAB CL(LOINC) 98-110 mEq/L Chloride High 111 LAB CO2(LOINC) 22-32 mEq/L Low CO2 21 LAB EBAL(LOINC 4.0-15.0 mEq/L ) Electrolyte Balance 10.0 LAB BUN(LOINC) 8.0-22.0 mg/dL BUN High 97.0 LAB CRE(LOINC) 0.50-1.20 mg/dL Creatinine High Lvl (s) 2.96 LAB BC(LOINC) 10.0-22.0 ratio High BUN/Creatinine 32.8 Ratio LAB CA(LOINC) 8.4-10.1 mg/dL Calcium Lvl 8.7 LAB PROT(LOINC 6.0-8.5 G/dL ) Total Protein 6.0 LAB ALB(LOINC) 3.2-4.8 G/dL Albumin Level 3.3 LAB GLB(LOINC) 1.5-3.8 G/dL Globulin 2.7 LAB AG(LOINC) 0.9-1.6 ratio A/G Ratio 1.2 LAB BILT(LOINC 0.2-1.2 mg/dL ) Bili Total 0.4 LAB AP(LOINC) 38-126 U/L Alk Phos 54 LAB AST(LOINC) 8-34 U/L AST/SGOT 10 LAB ALT(LOINC) 10-49 U/L ALT/SGPT 17 Performed By: #### CBC, MG, PHOS, CMP, GFR, TROPI, FIB, APTT, PRO, DIFF, MORPH #### [place] [address] .GFR Collected: 02/04/2018 Status: F Source: [facility] 8:18 PM [facility] REPOSITORY TYPE CODE TESTS RESULT OUT OF REFERENCE UNITS RANGE LAB GFRAA(LOINC ml/min/1.73 ) sqm GFR 19 [place] Result Comment: GFR Population mean for , Non- Americans Ages 20-29 = 116 mL/min/1.73 sq.m. Ages 30-39 = 107 mL/min/1.73 sq.m. Ages 40-49 = 99 mL/min/1.73 sq.m. Ages 50-59 = 93 mL/min/1.73 sq.m. Ages 60-69 = 85 mL/min/1.73 sq.m. Ages 70+ = 75 mL/min/1.73 sq.m. Chronic Kidney Disease: Less than 60 mL/min/1.73 square meters End Stage Renal Disease: Less than 15 mL/min/1.73 square meters LAB GFRNO(LOINC) ml/min/1.73sqm GFR Non- 15 Result Comment: GFR Population mean for , Non- Americans Ages 20-29 = 116 mL/min/1.73 sq.m. Ages 30-39 = 107 mL/min/1.73 sq.m. Ages 40-49 = 99 mL/min/1.73 sq.m. Ages 50-59 = 93 mL/min/1.73 sq.m. Ages 60-69 = 85 mL/min/1.73 sq.m. Ages 70+ = 75 mL/min/1.73 sq.m. Chronic Kidney Disease: Less than 60 mL/min/1.73 square meters End Stage Renal Disease: Less than 15 mL/min/1.73 square meters Performed By: #### CBC, MG, PHOS, CMP, GFR, TROPI, FIB, APTT, PRO, DIFF, MORPH #### [address] [address] TROPI Collected: 02/04/2018 Status: F Source: [facility] 8:18 PM [facility] REPOSITORY TYPE CODE TESTS RESULT OUT OF REFERENCE UNITS RANGE LAB TROPI(LOINC 0.000-0.040 ng/mL ) Troponin I <0.015 Result Comment: Troponin I reference ranges (04/26/14): 0.00-0.040 ng/mL Negative and non-diagnostic. >0.040 ng/mL Consistent with cardiac damage, increased clinical risk and possibility of myocardial infarction. Serial measurements, a rise & fall in test results, clinical history, appropriate symptoms and/or ECG changes may help assess possibility of MN. *Other non-acute coronary syndrome conditions such as CHF, myocarditis, pulmonary emboli, sepsis and cardiac surgery could result in myocardial damage and increased troponin levels. Performed By: #### CBC, MG, PHOS, CMP, GFR, TROPI, FIB, APTT, PRO, DIFF, MORPH #### [address] [address] FIB Collected: 02/04/2018 Status: F Source: [facility] 8:18 [facility] REPOSITORY TYPE CODE TESTS RESULT OUT OF REFERENCE UNITS RANGE LAB FIB(LOINC) 250-550 mg/dL Fibrinogen 382 Performed By: #### CBC, MG, PHOS, CMP, GFR, TROPI, FIB, APTT, PRO, DIFF, MORPH #### [address] [address] APTT Collected: 02/04/2018 Status: F Source: [facility] 8:18 PM [facility] REPOSITORY TYPE CODE TESTS RESULT OUT OF REFERENCE UNITS RANGE LAB PDOSE(LOIN C) Heparin dose Coumadin PO (APTT) LAB APTT0(LOIN 25.0-35.0 seconds C) High APTT 41.0 Result Comment: For Heparin anticoagulation therapy, the recommended therapeutic range is: 54-77 seconds (APTT Correlation with Anti-Xa therapeutic range of 0.3-0.7 units/ml). PLEASE REFERENCE THE PHARMACY PROTOCOL FOR DOSING. Performed By: #### CBC, MG, PHOS, CMP, GFR, TROPI, FIB, APTT, PRO, DIFF, MORPH #### [facility] [address] [place] [address] PRO Collected: 02/04/2018 Status: F Source: [facility] 8:18 PM [facility] REPOSITORY TYPE CODE TESTS RESULT OUT OF REFERENCE UNITS RANGE LAB PT(LOINC) 9.0-14.5 seconds High Protime 37.3 Result Comment: Effective 03/02/08, Protime results may be affected by some antibiotics (i.e. Ciprofloxacin, Azithromycin, Bactrim) which may potentiate the action of oral anticoagulants, with further increases in Protime/INR. LAB INR(LOINC) ratio PT International Ratio 3.2 Result Comment: The [place] [employer] (CHEST, 1992, 102:312S-25S) recommended therapeutic range for oral anticoagulant therapy is: LOW RISK: Prophylaxis of venous thrombosis INR: 2.0-3.0 Treatment of pulmonary embolism 2.0-3.0 Prevention of systemic embolism 2.0-3.0 HIGH RISK: Mechanical prosthetic valves 2.5-3.5 Performed By: #### CBC, MG, PHOS, CMP, GFR, TROPI, FIB, APTT, PRO, DIFF, MORPH #### [place] [id number] [place] [address] .MANUAL DIFF Collected: 02/04/2018 Status: F Source: [facility] 8:18 PM [facility] REPOSITORY TYPE CODE TESTS RESULT OUT OF REFERENCE UNITS RANGE LAB LIMIT(LOIN C) Cells Counted 100 LAB NEUM(LOINC 50.0-75.0 % ) Neutrophil %, 71.0 Manual LAB LYMM(LOINC 20.0-40.0 % ) Lymphocyte %, 21.0 Manual LAB MONM(LOINC 2.0-13.0 % ) Monocyte %, Manual 8.0 LAB EOM(LOINC) 0.0-6.0 % Eosinophil %, 0.0 Manual LAB BASM(LOINC 0.0-2.5 % ) Basophil %, Manual 0.0 LAB ANEUM(LOIN 2.25-8.10 10 3/mcL C) Neutrophil, Abs 4.40 Manual LAB ABLYMM(DWIGHT 0.90-4.32 10 3/mcL NC) Lymphocyte, Abs 1.30 Manual LAB AMONM(LOIN 0.09-1.40 10 3/mcL C) Monocyte, Abs 0.50 Manual LAB AEOSM(LOIN 0.00-0.65 10 3/mcL C) Eosinophil, Abs 0.00 Manual LAB ABASM(LOIN 0.00-0.27 10 3/mcL C) Basophil, Abs 0.00 Manual Performed By: #### CBC, MG, PHOS, CMP, GFR, TROPI, FIB, APTT, PRO, DIFF, MORPH #### [place] [address] .MORPH Collected: 02/04/2018 Status: F Source: [facility] 8:18 PM [facility] REPOSITORY TYPE CODE TESTS RESULT OUT OF REFERENCE UNITS RANGE LAB PLTE(LOINC ) Platelet Estimate Normal LAB ANIS(LOINC ) Anisocytosis Slight Performed By: #### CBC, MG, PHOS, CMP, GFR, TROPI, FIB, APTT, PRO, DIFF, MORPH #### [place] [address] TABO Collected: 02/04/2018 Status: F Source: [facility] 8:18 PM [facility] REPOSITORY TYPE CODE TESTS RESULT OUT OF RANGE REFERENCE UNITS LAB ABORH(LOINC ) Unknown ABO/Rh A POS Interp Performed By: #### ABORH, ANTIS #### [place] [address] TABS Collected: 02/04/2018 Status: F Source: [facility] 8:18 PM [facility] REPOSITORY TYPE CODE TESTS RESULT OUT OF REFERENCE UNITS RANGE LAB ANST(LOINC ) Antibody Negative ABSC Screen Tango Performed By: #### ABORH, ANTIS #### [place] [address] RBC (PRODUCT) Collected: 02/04/2018 Status: F Source: [facility] 7:43 PM [facility] REPOSITORY TYPE CODE TESTS RESULT OUT OF REFERENCE UNITS RANGE LAB RBCPR(LOINC ) RBC Product RBC Ready Ready for Pickup Performed By: #### RBCP #### [place] [address] EMERGENCY DEPARTMENT Observed: 02/04/2018 Status: F Source: [place] SUMMARY 5:15 PM [facility] REPOSITORY [facility] Medical Records Department [address] [place] [address] Emergency Department Summary 02/04/18 1225 MR#: [id number] Acct: [id number] Name: GABBI ROLLE Rep #: [id number] : 1945 72 From: Hayde Ruvalcaba DO PCP: Sara Zarate NP Status: REG ER - ER Visit Summary Date of Service: 02/04/18 Chief Complaint: [Rectal bleeding] History of Present Illness: The patient is a 72 F [presents the emergency department with rectal bleeding for the last 4 days. Patient states that started having bright red blood in her stool 4 days ago. Patient states that she is having 2- 3 bowel movements per day. Stools become more liquidy. Patient denies any fever. Patient does feel weak and somewhat lightheaded. Patient states that she had some episodes similar in November and had an upper and [...] bowel sounds, soft, nontender, no rebound or rigidity, no peritoneal signs. Rectal exam-maroon stool noted, no masses palpated Extremities-intact 4, normal range of motion, normal pulses, atraumatic] Test Results: [CBC with differential obtained for white count 7.5, hemoglobin 5.7, hematocrit 18.8, platelets [...] scan which is been ordered and is pending Treatment Plan: [Transfer to [facility]]. I discussed case with probation agent who accepted transfer of the patient. I did give patient 5 mg of vitamin K subcu. Disposition: [Transfer] Impression: Upper GI bleed and lower GI bleed [] This note was generated with [employer] dictation software. It may contain incorrect words, spelling, and punctuation that were not noted in review of the chart prior to signing ED Disposition - Plan for ED Patient: Chief Complaint: GI Bleed Referrals: Sara Zarate [Primary Care Provider] - What to do if you have Problems For any increased pain, shortness of breath, bleeding, nausea or vomiting, chest pain, or any unexpected problems, contact your Primary Care Provider. Call [facility] ([phone]) or report to the closest Emergency Room. Call 911 if necessary. 02/04/18 1715 <Electronically signed by Hayde Ruvalcaba DO> Date Hayde Ruvalcaba DO Cosigner Signature (If Indicated): Date CC: Sara Zarate NP GI BLEED SCAN Observed: 02/04/2018 Status: F Source: [place] 12:24 PM [facility] REPOSITORY [facility] Imaging Services [address] [place] [id number] GI Bleed Scan MR#: [id number] Acct: [id number] Name: GABBI ROLLE Rep #: [id number] : 1945 F 72 From: Manuel Montoya MD PCP: Sara Zarate NP Status: REG ER Study: GI Bleed Scan Date of Exam: 02/04/18 Exam# [id number] Ordering Dr: Hayde Ruvalcaba DO NM GI BLEED SCAN REASON FOR EXAM: Rectal bleeding for 4 days. TECHNIQUE: Following the [...] bleeding sites increase over time. Electronically Signed: Manuel Montoya MD at 14:19 EDT , Service support , NM/GI Bleed Scan CC: Sara Zarate NP; Hayde Ruvalcaba DO Propeller Mechanic: Signed CBC W/DIFF, AUTOMATED Collected: 02/04/2018 Status: C Source: [place] 11:25 AM [facility] REPOSITORY TYPE CODE TESTS RESULT OUT OF RANGE REFERENCE UNITS LAB L100.1000 4.4-11.0 K/mm3 Normal WBC 7.5 LAB L100.1200 4.2-5.4 M/mm3 Low RBC 1.86 LAB L100.1300 12.0-15.0 g/dl Low alert HGB 5.7 Result Comment: CRITICAL VALUE VERIFIED. CALLED TO JOYCE SIN 02/04/18 1147 [place] [place]. RESULTS READ BACK BY SAME . LAB L100.1400 37-47 % Low HCT 18.8 LAB L100.1500 81-99 fL High MCV 101.1 LAB L100.1600 27.0-32.0 pg Normal MCH 30.6 LAB L100.1700 32-36 g/gl Low MCHC 30.3 LAB L100.1810 11.6-14.6 % High RDW CV 15.8 LAB L100.1820 35.1-43.9 fl High RDW SD 54.4 LAB L100.1900 150-450 K/mm3 Normal PLT 227 LAB L100.2000 6.2-12.0 fl High MPV 12.1 LAB L100.2100 47-70 % High NEUT% 81.7 LAB L100.2200 19-41 % Low LY% 13.8 LAB L100.2300 0-10 % Normal MONO% 3.3 LAB L100.2400 0-5 % Normal EO% 0.7 LAB L100.2500 0-1 % Normal BASO% 0.4 LAB L100.2550 0.0-0.9 % Normal IM GRAN % 0.100 Result Comment: IG% - Immature Granulocytes (promyelocytes, myelocytes and metamyelocytes) > 1% indicates that a LEFT SHIFT is Present. LAB L100.2620 2.0-7.7 X10 3/uL Absolute Neut Normal 6.1 LAB L100.2720 0.83-4.51 X10 3/ul Absolute Lymph Normal 1.03 LAB L100.5500 ADEQ PLT EST Normal ADEQUATE LAB L100.5650 PLT MORPH Normal LARGE LAB L100.7600 HYPOCHROMASIA Normal 2+ LAB L100.9900 PATH REV Normal Reviewed Result Comment: Severe Macrocytic anemia. Clinical correlation necessary. Sha Hogue M.D. 02/05/18 AMENDED REPORT 02/05/18 0951 PATH REV previously reported as: December Performed By: #### L100.0100 #### [facility] [address] [place], [place], [address] PROTHROMBIN TIME W/INR Collected: 02/04/2018 Status: F Source: [place] 11:25 AM [facility] REPOSITORY TYPE CODE TESTS RESULT OUT OF REFERENCE UNITS RANGE LAB L300.4150 11.7-14.9 SECONDS High PROTIME 37.0 LAB L300.4200 High alert INR 3.7 Result Comment: CRITICAL VALUE VERIFIED. CALLED TO JOYCE DILL 02/04/18 1153 Billie Hays. RESULTS READ BACK BY SAME . Performed By: #### L300.3900 #### [facility] [address] [place], [address] BASIC METABOLIC Collected: 02/04/2018 Status: F Source: [place] PROFILE (BMP) 11:25 AM [facility] REPOSITORY TYPE CODE TESTS RESULT OUT OF RANGE REFERENCE UNITS LAB L501.0100 74-106 mg/dL High GLU 136 Result Comment: Fasting Glucose result greater than or equal to 126 mg/dL suggests DIABETES MELLITUS per A.D.A. criteria. Please note revised GLUCOSE reference range effective 2017. LAB L501.1000 7-18 mg/dL High alert BUN 104 Result Comment: Critical Result(s) Called at: 12:09:22 02/04/2018 by: Peyton Alejandre RN (). LAB L501.1100 0.55-1.02 mg/dL CREAT,SERUM High 3.30 Result Comment: The validity of the calculated GFR AND GFRAA in patients over 70 years has not been determined. Clinical correlation is essential. LAB L501.1110 >60 mL/min Low EST GFR 15 Result Comment: Non- GFR Calc LAB L501.1115 >60 mL/min Low EST GFR - AA 18 Result Comment: GFR Calc LAB L501.1255 ml/min Normal Estimated CRCL 14.54 LAB L501.1300 10-20 RATIO High BUN/CRE 31.5 LAB L501.2200 8.5-10 mg/dL Normal .1 CA 8.7 LAB L501.5300 136-14 mmol/L Normal 5 NA 140 LAB L501.5600 3.5-5. mmol/L High 1 K 5.5 LAB L501.5900 98-107 mmol/L High CL 109 LAB L501.6100 21.0-3 mmol/L Normal 2.0 CO2 22.0 LAB L501.6200 5-15 Normal GAP 9 Performed By: #### L500.2500 #### [facility] [address] [place], [place], [address] TYPE AND SCREEN Collected: 02/04/2018 Status: F Source: [place] 11:25 AM [facility] REPOSITORY Order Comment: Reason for Type AND Screen/Red Cells: HEMORRHAGE, GI BLEED TYPE CODE TESTS RESULT OUT OF RANGE REFERENCE UNITS LAB B10.0800 A Normal BLOOD TYPE GEL POSITIVE LAB B100.4000 Normal Antibody NEGATIVE Screen Performed By: #### B101.7450 #### [facility] [address] [place], [address] RC Collected: 02/04/2018 Status: F Source: [place] 11[facility]25 AM [facility] TYPE CODE TESTS RESULT OUT OF REFERENCE UNITS RANGE LAB U100.0000 [id number] TRANSFUSED PRODUCT: T AND S with Crossmatch, Red Cells COUNT: 2 Performed By: #### U100.0000 #### Non-[facility] - refer to report for specific site ECHOCARDIOGRAM COMPLETE Observed: 02/04/2018 Status: F Source: [place] 11:04 [facility] REPOSITORY [facility] Cardiovascular Services [address] [place] [address] Echo Complete 01/22/18 1324 MR#: [id number] Acct: [id number] Name: GABBI ROLLE Rep #: [id number] : 1945 72 From: Champ Ann MD Attending Dr: Johanna Chan MD Status: DIS IN Ordering Dr: Rufina Huang DO Date: 01/22/18 Location: U Sex: F C Admitted: 01/21/18 Reason For Study: CHF, PLEURAL EFFUSION Procedure This was a 2D Doppler, Color Flow transthoracic echocardiogram. Exam performed portable in patient room. Left Ventricle Normal size and thickness. The estimated ejection fraction is 65 %. No regional wall motion abnormalities noted. Right Ventricle Severely dilated right ventricle. Mild to moderate global right ventricular systolic dysfunction. Atria The left atrium is severely enlarged. The right atrium is severely enlarged. Normal atrial septum. Mitral Valve Mild diffuse mitral valve thickening. Mild mitral valve stenosis. Mild (1+) mitral valve insufficiency. Tricuspid Valve Normal tricuspid valve. Mild (1+) tricuspid valve insufficiency. Right ventricular systolic pressure estimated to be 66 mmHg. Severe pulmonary hypertension. Aortic Valve Trisinus/trileaflet aortic valve. Moderate focal aortic valve thickening. Mild diffuse aortic valve calcification. Severe restriction of the aortic valve. Severe aortic stenosis. Peak aortic valve gradient 87 mmHg. Mean aortic valve gradient 43 mmHg. Calculated aortic valve area (continuity equation) is 0.75 cm2. Pulmonic Valve Normal pulmonic valve. Great Vessels Normal aortic root. Normal arch. The inferior vena cava is dilated. No collapse of the inferior vena cava. Pericardium/Pleural No pericardial effusion. MMode/2D Measurements AND Calculations LVIDd: 4.8 cm IVSd: 1.5 cm LVOT diam: 2.0 cm LVIDs: 3.3 cm LVPWd: 1.4 cm LVOT area: 3.2 cm2 RVDd: 5.0 cm FS: 31.0 % Ao root diam: 3.6 cm LAV(MOD-bp): 119.9 ml LA A4 area: 27.4 cm2 ACS: 0.74 cm LAV(MOD-bp) Indexed: 44.5 ml/m2 LA dimension: 5.6 cm LAV(MOD-sp2): 136.2 ml LAV(MOD-sp4): 94.2 ml RA A4 area: 31.2 cm2 Time Measurements MV dec time: 0.24 sec Doppler Measurements AND Calculations MV E max pavel: 152.9 cm/sec Lat Peak E' Pavel: 11.9 cm/sec Med Peak E' Pavel: 10.5 cm/sec E/E' lat: 12.9 E/E' med: 14.5 MV V2 max: 178.2 cm/sec Ao V2 max: 465.3 cm/sec AI max pavel: 386.8 cm/sec MV max P.7 mmHg Ao max P.6 mmHg AI max P.8 mmHg MV V2 mean: 75.8 cm/sec Ao V2 mean: 298.3 cm/sec AI dec slope: 307.1 cm/sec2 MV mean P.1 mmHg Ao mean P.9 mmHg AI P1/2t: 368.9 msec MV V2 VTI: 44.1 cm Ao V2 VTI: 111.5 cm MVA(VTI): 1.8 cm2 ALONSO(I,D): 0.72 cm2 ALONSO(V,D): 0.75 cm2 LV V1 max: 109.2 cm/sec SV(LVOT): 80.4 ml PA V2 max: 101.6 cm/sec LV V1 max P.8 mmHg LV V1 mean P.3 mmHg LV V1 mean: 70.6 cm/sec LV V1 VTI: 25.2 cm TR max pavel: 357.1 cm/sec TR max P.8 mmHg Interpretation Summary The estimated ejection fraction is 65 %. Severely dilated right ventricle. Mild to moderate global right ventricular systolic dysfunction. The left atrium is severely enlarged. The right atrium is severely enlarged. Mild mitral valve stenosis. Mild (1+) mitral valve insufficiency. Mild (1+) tricuspid valve insufficiency. Right ventricular systolic pressure estimated to be 66 mmHg. Severe pulmonary hypertension. Severe aortic stenosis. Peak aortic valve gradient 87 mmHg. Mean aortic valve gradient 43 mmHg. Calculated aortic valve area (continuity equation) is 0.75 cm2. The inferior vena cava is dilated Compared to echo report dated 12/10/2016, LV function has remained the same, but aortic stenosis is now severe. RVSP has worsend from 54 to 66 mm Hg. Pt appears to be in atrial fibrillation. Ordering Physician: Fozia Huang Referring Physician: SARA ZARATE Performed By: Dany Triplett RCS 02/04/18 1103 Date Champ Ann MD CC: Sara Zarate OCCUPATIONAL HYGIENIST; Johanna Chan MD; Fozia Huang Date Dictated: 01/22/18 1324 Date Transcribed: 02/04/18 1103 Propeller Mechanic: Signed 12 LEAD ELECTROCARDIOGRAM Observed: 02/03/2018 Status: F Source: [place] 8:46 [facility] REPOSITORY [facility] Cardiovascular Services [address] [place] [address] 12 Lead EKG 01/21/18 1723 MR#: [id number] Acct: [id number] Name: GABBI ROLLE Rep #: [id number] : 1945 72 From: Niraj Raymundo MD Attending Dr: Johanna Chan MD Status: DIS IN Ordering Dr: Johanna Chan MD Date: 01/21/18 Location: [facility] Sex: F C Admitted: 01/21/18 Test Reason : Blood Pressure : / mmHG Vent. Rate : 088 BPM Atrial Rate : 077 BPM P-R Int : 000 ms QRS Dur : 096 ms QT Int : 358 ms P-R-T Axes : 000 061 042 degrees QTc Int : 433 ms Atrial fibrillation Nonspecific ST abnormality Abnormal ECG Confirmed by NIRAJ RAYMUNDO MD ([id number]), graphics editor JONATHON ROLLE ([id number]) on 01/29/2018 6:17:32 PM Referred By: JOO Confirmed By:NIRAJ RAYMUNDO MD 01/29/18 6742 Date Niraj Raymundo MD CC: Sara Zarate OCCUPATIONAL HYGIENIST; Johanna Chan MD Signed ONCOLOGY VISIT REPORT Observed: 01/29/2018 Status: F Source: [place] 1:47 PM [facility] REPOSITORY [facility] [place] [address] OFFICE VISIT Date of Service: 01/29/18 1339 MR#: [id number] Acct: [id number] Name: GABBI ROLLE Rep #: [id number] : 1945 From: Halley Khan MD Age/Sex: 72/F Location: [facility] Status: Signed - Problem List (1) Anemia Status: Chronic Qualifiers: Anemia type: unspecified type Qualified Code(s): D64.9 - Anemia, unspecified (2) Iron deficiency [...] of Systems Constitutional:: Reports: Weakness - Less, Fatigue - Less, Weight loss - Due to loss of edema fluid, - - Overall I feel the best for the past few months. Denies: Fever, Sweats, Appetite change, Chills Cardiovascular:: Reports: Dyspnea on exertion. Denies: Chest pain, Palpitations, Orthopnea, PND, Shortness of breath Respiratory: Reports: Shortness of breath upon exertion. Denies: Cough, Hemoptysis, Shortness of Breath, Wheezing Gastrointestinal:: Reports: - - Stools are always dark, always test positive for blood. Denies: Abdominal pain, Nausea, Vomiting, Diarrhea, Constipation, Hematochezia Genitourinary: Denies: Dysuria, Hematuria, 15, Flank pain Musculoskeletal:: Reports: Arthritis - Chronic lower extremities degenerative joint disease, Arthralgia. Denies: Back pain, Myalgia Skin: Reports: Dryness, Rash - Take on the legs, Skin Changes - Chronic on the legs. [...] consider capsule study) despite oral iron supplementation (half-way) . Patient was transfused with packed red cells on several occasions most recent being November 2017 for severe [...] puff IH DAILY 01/03/18 [Combivent Respimat Inhal [place]] Furosemide [Lasix] 40 mg PO BID 01/15/18 Primary Care Provider: Sara Zarate Referring Provider: Halley Khan MD 01/29/18 5162 <Electronically signed by Halley Khan MD> Date Halley Khan MD Cosigner Signature: Date (if applicable) CC: Sara Zarate BASIC METABOLIC Collected: 01/28/2018 Status: F Source: [place] PROFILE (BMP) 2:26 PM [facility] REPOSITORY Order Comment: Send Results To: Sara Zarate Reason for Laboratory Test CKD, hypokalemia TYPE CODE TESTS RESULT OUT OF RANGE REFERENCE UNITS LAB L501.0100 74-106 mg/dL High GLU 163 Result Comment: Fasting Glucose result greater than or equal to 126 mg/dL suggests DIABETES MELLITUS per A.D.A. criteria. Please note revised GLUCOSE reference range effective 2017. LAB L501.1000 7-18 mg/dL High BUN 39 LAB L501.1100 0.55-1.02 mg/dL High CREAT,SERUM 2.67 Result Comment: The validity of the calculated GFR AND GFRAA in patients over 70 years has not been determined. Clinical correlation is essential. LAB L501.1110 >60 mL/min Low EST GFR 19 Result Comment: Non- GFR Calc LAB L501.1115 >60 mL/min Low EST GFR - AA 22 Result Comment: GFR Calc LAB L501.1255 ml/min Normal Estimated CRCL 17.98 LAB L501.1300 10-20 RATIO Normal BUN/CRE 14.6 LAB L501.2200 8.5-10 mg/dL Normal .1 CA 9.5 LAB L501.5300 136-14 mmol/L Normal 5 NA 141 LAB L501.5600 3.5-5. mmol/L Normal 1 K 4.6 LAB L501.5900 98-107 mmol/L Normal CL 105 LAB L501.6100 21.0-3 mmol/L Normal 2.0 CO2 28.0 LAB L501.6200 5-15 Normal GAP 8 Performed By: #### L500.2500 #### [facility] [address] [place], [address] CBC W/DIFF, AUTOMATED Collected: 01/28/2018 Status: F Source: [place] 2:25 PM [facility] REPOSITORY Order Comment: Reason for Laboratory Test . TYPE CODE TESTS RESULT OUT OF RANGE REFERENCE UNITS LAB L100.1000 4.4-11.0 K/mm3 Normal WBC 6.4 LAB L100.1200 4.2-5.4 M/mm3 Low RBC 3.31 LAB L100.1300 12.0-15.0 g/dl Low HGB 9.6 LAB L100.1400 37-47 % Low HCT 32.8 LAB L100.1500 81-99 fL High MCV 99.1 LAB L100.1600 27.0-32.0 pg Normal MCH 29.0 LAB L100.1700 32-36 g/gl Low MCHC 29.3 LAB L100.1810 11.6-14.6 % High RDW CV 15.8 LAB L100.1820 35.1-43.9 fl High RDW SD 57.8 LAB L100.1900 150-450 K/mm3 Normal PLT 302 LAB L100.2000 6.2-12.0 fl Normal MPV 10.9 LAB L100.2100 47-70 % High NEUT% 77.8 LAB L100.2200 19-41 % Low LY% 16.0 LAB L100.2300 0-10 % Normal MONO% 3.6 LAB L100.2400 0-5 % Normal EO% 1.9 LAB L100.2500 0-1 % Normal BASO% 0.5 LAB L100.2550 0.0-0.9 % Normal IM GRAN % 0.200 Result Comment: IG% - Immature Granulocytes (promyelocytes, myelocytes and metamyelocytes) > 1% indicates that a LEFT SHIFT is Present. LAB L100.2620 2.0-7.7 X10 3/uL Normal Absolute Neut 5.0 LAB L100.2720 0.83-4.51 X10 3/ul Normal Absolute Lymph 1.02 Performed By: #### L100.0100, L503.6030, L503.6550 #### [facility] [address] [place], [place], [address] IRON+IRON BINDING Collected: 01/28/2018 Status: F Source: [facility] 2:25 PM [facility] REPOSITORY Order Comment: Reason for Laboratory Test . TYPE CODE TESTS RESULT OUT OF RANGE REFERENCE UNITS LAB L503.6075 250-450 ug/dL TIBC Normal 345 LAB L503.6150 50-170 ug/dL IRON Normal 92 LAB L503.6250 15.0-55.0 % IRON Normal SATURATION 26.7 Performed By: #### L100.0100, L503.6030, L503.6550 #### [facility] [address] [place], [address] FERRITIN Collected: 01/28/2018 Status: F Source: [place] 2:25 PM [facility] REPOSITORY Order Comment: Reason for Laboratory Test . TYPE CODE TESTS RESULT OUT OF RANGE REFERENCE UNITS LAB L503.6550 8-252 ng/mL Normal FERRITIN 109 Performed By: #### L100.0100, L503.6030, L503.6550 #### [facility] [address] [place], [address] THORACENTESIS W US Observed: 01/28/2018 Status: F Source: [place] 8:30 AM [facility] REPOSITORY [facility] Imaging Services [address] [place] [address] Thoracentesis W US MR#: [id number] Acct: [id number] Name: GABBI ROLLE Rep #: [id number] : 1945 F 72 From: Aaron Kenyon MD PCP: Sara Zarate NP Status: DIS IN Study: Thoracentesis W US Date of Exam: 01/22/18 Exam# [id number] Ordering Dr: Nohemi Walker PROCEDURE: ULTRASOUND GUIDED THORACENTESIS - PLEURAL EFFUSION CLINICAL HISTORY: Female, 72 years old. Left pleural effusion CONSENT: The risks, benefits and alternatives to the procedure were explained to the patient, and the patient agreed to the procedure and signed the consent. STERILE BARRIER TECHNIQUE: The following sterile barrier precautions were used during the procedure: hand hygiene; use of 2% chlorhexidine aseptic; use of a cap, mask, sterile gown, sterile gloves, sterile full body drape, and a large sterile sheet. SEDATION: Local anesthesia TECHNIQUE: Under the ultrasound guidance using all elements of maximum sterile technique and after infiltration of the skin and subcutaneous soft tissues with 10 mL of lidocaine 1% a 5 Nigerian drainage catheter is introduced in the lower part of the hemithorax. 600 mL of fluid were removed sample sent to lab for evaluation. The patient tolerated the procedure there was no immediate complication. US/Thoracentesis W US IMPRESSION: Successful ultrasound-guided thoracentesis. Electronically Signed: Aaron Kenyon MD at 13:59 EDT Tel , Service support , CC: Sara Zarate NP; Nohemi Walker Propeller Mechanic: Signed DISCHARGE SUMMARY Observed: 01/27/2018 Status: F Source: [place] 12:06 PM [facility] REPOSITORY [facility] Medical Records Department [address] [place] [address] Discharge Summary 01/27/18 1058 MR#: [id number] Acct: [id number] Name: GABBI ROLLE Rep #: [id number] : 1945 72 From: Billie BOYER PCP: Sara Zarate NP Status: ADM IN Y Location: [place] [address] ADDENDUM by ROSALIND Segovia on 01/27/18 at 1201 Code Visit Patient was tested for home oxygen prior to discharge. She required supplemental oxygen with ambulation. She is ambulatory in the home and in the community. 01/27/18 1201 <Electronically signed by Billie BOYER> Date Billie Segovia cc: Sara Zarate; Sara Zarate NP; ROSALIND Segovia; Johanna Chan MD * Signed Addendum entered and electronically signed by ROSALIND Nolen 01/27/18 12:01: Code Visit Patient was tested for home oxygen prior to discharge. She required supplemental oxygen with ambulation. She is ambulatory in the home and in the community. Original Note: <Billie Segovia - Last Filed: 01/27/18 11:59> Discharge Date and Diagnosis Date of Admission: 11/29/17 Date of Discharge: 01/27/18 - Primary Discharge Diagnosis 1. Acute on chronic diastolic CHF 2. Acute kidney injury on chronic kidney disease stage III 3. Acute hypoxia secondary to #1 - Secondary Discharge Diagnosis Chronic Problems (Last Reviewed 01/03/18 @ 14:09 by Alethea Augustin) Anemia in chronic kidney disease (CKD) (Chronic) CKD (chronic kidney disease), stage III (Chronic) Atherosclerotic heart disease of [place] coro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 pectoris (Chronic) [facility]: 07/30/2006; 04/10/17 Chronic atrial fibrillation (Chronic) Hyperkalemia (Chronic) HLD (hyperlipidemia) (Chronic) HTN (hypertension) (Chronic) Non-ST elevation (NSTEMI) myocardial infarction (Chronic) Nonrheumatic aortic (valve) stenosis (Chronic) Nonrheumatic mitral (valve) insufficiency (Chronic) Nonrheumatic tricuspid (valve) insufficiency (Chronic) Other secondary pulmonary hypertension (Chronic) SOB (shortness of breath) (Chronic) NSTEMI (non-ST elevated myocardial infarction) (Chronic) Chronic atrial fibrillation (Chronic) Hypertension (Chronic) Hyperlipidemia (Chronic) Type 2 diabetes mellitus (Chronic) CAD (coronary artery disease) (Chronic) Anemia (Chronic) CRF (chronic renal failure) (Chronic) Iron deficiency anemia (Chronic) Diverticular disease (Chronic) Morbid obesity (Chronic) Hospital Course and Treatment Imaging Results: Diagnostic Data Chest X-Ray 01/27/18 06:00 IMPRESSION: Cardiomegaly with mild bronchitis. No acute pneumonia. No CHF Electronically Signed: Jason Souza, at 6:44 EDT Tel , Service support , Operations: None Procedures: 2-D Echocardiogram, Thoracentesis Summary of Care Provided: Patient is a 72-year-old female admitted 01/21/18 due to fluid retention, increased lower extremity edema and shortness of breath. She has a past medical history of iron deficiency anemia, chronic kidney disease stage III, type 2 diabetes mellitus, hypertension, hyperlipidemia, obstructive sleep apnea, morbid obesity, bilateral lower extremity lymphedema, chronic atrial fibrillation on Coumadin therapy, history of CAD/NSTEMI, pulmonary hypertension, iron deficiency anemia. 1. Acute on chronic diastolic CHF with associated acute hypoxia- Echocardiogram showed an ejection fraction of 65%, severe pulmonary hypertension with RVSP 66 mmHg, mild MR, severe left ear, mild mitral stenosis. Patient was treated with IV Lasix. She had significant urine output and is down greater than 30 pounds from admission. Her home Lasix regimen will be increased to 40 mg twice daily for 1 week. She will follow- up with Dr. Raymundo's office in 1 week. Continue potassium supplementation 40 mEq daily. Patient instructed to weigh herself daily at home and reports increasing 4 pounds or greater to primary care physician or cardiology. Patient underwent thoracentesis 01/22/2018 due to left pleural effusion. Chest x-ray day of discharge showed no pleural effusions. 2. Chronic A. fib-stable. Continue home rate control medications and Coumadin. INR subtherapeutic. Coumadin was held secondary to thoracentesis on admission. Patient checks her INR at home. Patient will take 8 mg Coumadin tonight and repeat INR in the morning. She will communicate with primary care physician regarding further recommended Coumadin dosing. 3. Chronic iron deficiency anemia and chronic GI blood loss- hemoglobin stable. Stool for occult blood positive. Patient had colonoscopy with Dr. Birmingham 11/2017 which showed no source of GI bleed. Diverticulosis and hemorrhoidal disease was noted. Patient has had multiple stools which were positive for occult blood in the past. Continue outpatient follow-up with Dr. Hobbs and Dr. Valdez. Continue iron supplementation. 4. Acute kidney injury on chronic kidney disease stage III- follows with Dr. Mccurdy. Repeat BMP in 3 days to be followed by primary care physician. 5. Type 2 diabetes mellitus-continue home regimen. 6. Hyperlipidemia-continue statin. 7. Hypertension-stable, continue current regimen. 8. CAD/History of NSTEMI-normal stress August 2016. Cath in 2005 with no significant stenosis. 9. Obstructive sleep apnea-continue CPAP 10. Chronic bilateral lower extremity lymphedema-continue home lymphedema pumps. 11. Morbid obesity-Encourage diet and lifestyle modifications. General: Alert, Oriented x3, Cooperative HEENT: Atraumatic, PERRLA, EOMI, Normocephalic Oral: Moist mucosa Neck: Supple, No JVD, Negative Carotid Bruits Lungs: Clear to auscultation, Diminished Cardiovascular: A.fib, rate control. Abdomen: Bowel Sounds Present, Soft, Non Tender, Non-Distended, Obese Extremities: No clubbing, No cyanosis, Chronic lymphedema Skin: No rashes, No breakdown Musculoskeletal: No Tenderness to Palpation of Joints or Extremities Neurological: Cranial nerves II-XII grossly intact, Neuro grossly intact Psych/Mental Status: Normal Affect, Appropriate Patient seen exam prior to discharge. Physical assessment as noted above. Patient stable for discharge home with medication adjustments and follow-up recommendations as noted above. This patient was seen by ROSALIND Nolen under the supervision of Dr. Chan. Discharge Diet: Low fat/ Low Cholesterol, 8 Cup Fluid Restriciton, 2000 mg Sodium Diet, Carb Control Diet Discharge Activity: Return to Normal Activity Call your doctor if you observe: Shortness of breath, Dizziness, Fainting spells, Chest pain Home Medications: Medications to take at Discharge Ascorbic Acid [Vitamin C] 1,000 mg PO TID 11/18/17 Budesonide/Formoterol Fumarate [Symbicort 160-4.5 Mcg Inhaler] 2 puff IH BID 11/18/17 Calcium Citrate 500 mg PO BID 11/18/17 Cholecalciferol (Vitamin D3) [Vitamin D3] 4,000 unit PO BID 11/18/17 Febuxostat [Uloric] 80 mg PO PRN PRN 11/18/17 Linagliptin [Tradjenta] 5 mg PO PRN [...] Ferrous Sulfate 325 mg PO TID 11/29/17 Ipratropium/Albuterol Sulfate [Combivent Respimat Inhal [place]] 1 puff IH DAILY 01/03/18 Furosemide [Lasix] 40 mg PO BID 01/15/18 Potassium Chloride [K-Dur] 40 meq PO DAILY #60 tab 01/27/18 Following Prescrptions Were Given to Patient: Potassium Chloride [K-Dur] 40 meq PO DAILY #60 tab Primary Care Physician: Sara Zarate [Primary Care Provider] - Please follow up with your Primary Care Physician in: 1 Week Please Follow Up With: Niraj Raymundo MD - Please make appt with PA/OCCUPATIONAL HYGIENIST prior to DC When: 1 Week Please Follow Up With: Halley Khan MD When: As scheduled Additional Instructions: You will take Coumadin 8mg tonight. Repeat INR daily at home and notify primary care provider with results to adjust coumadin dosing. You will take lasix 40mg twice daily for one week and potassium 40meq daily. Follow up with Dr. Raymundo's office in one week for further recommendations (May see OCCUPATIONAL HYGIENIST/PA). Weigh yourself daily and document weight. If you increase weight more than 4lbs, you will need to contact primary care of Dr. Raymundo to adjust lasix dosing. Check BMP in 3 days-1 Week which will be followed by your primary care physician to monitor potassium and kidney function. Disposition: Home Minutes spent on discharge:: 35 Patient Condition:: Stable Medical Necessity - Tobacco Use Smoking Status: Never smoker Meaningful Use Info Meaningful Use Diagnoses (Choose all that apply): CHF - CHF MARIE/ARB ordered at discharge?: Yes Documented LVEF (%): 65 <Johanna Chan - Last Filed: 01/27/18 12:06> Discharge Date and Diagnosis - Secondary Discharge Diagnosis Chronic Problems (Last Reviewed 01/03/18 @ 14:09 by Alethea Augustin) Anemia in chronic kidney disease (CKD) (Chronic) CKD (chronic kidney disease), stage III (Chronic) Atherosclerotic heart disease of [place] coro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 pectoris (Chronic) [facility]: 07/30/2006; 04/10/17 Chronic atrial fibrillation (Chronic) Hyperkalemia (Chronic) HLD (hyperlipidemia) (Chronic) HTN (hypertension) (Chronic) Non-ST elevation (NSTEMI) myocardial infarction (Chronic) Nonrheumatic aortic (valve) stenosis (Chronic) Nonrheumatic mitral (valve) insufficiency (Chronic) Nonrheumatic tricuspid (valve) insufficiency (Chronic) Other secondary pulmonary hypertension (Chronic) SOB (shortness of breath) (Chronic) NSTEMI (non-ST elevated myocardial infarction) (Chronic) Chronic atrial fibrillation (Chronic) Hypertension (Chronic) Hyperlipidemia (Chronic) Type 2 diabetes mellitus (Chronic) CAD (coronary artery disease) (Chronic) Anemia (Chronic) CRF (chronic renal failure) (Chronic) Iron deficiency anemia (Chronic) Diverticular disease (Chronic) Morbid obesity (Chronic) Hospital Course and Treatment Imaging Results: 01/27/18 06:00 Chest PA and Lateral [RAD] Urgent Summary of Care Provided: The patient is a 72 year old F [] Code Visit Inpatient E AND M: [id number] Disch Hosp 01/27/18 1128 <Electronically signed by Billie GARCIAC> Date Billie BOYER Cosigner Signature (if applicable): Date CC: Sara Zarate; Sara Zarate NP; OCCUPATIONAL HYGIENIST-C Billie Segovia; Johanna Chan MD Signed BEDSIDE GLUCOSE Collected: 01/27/2018 Status: F Source: [place] 11:17 AM [facility] REPOSITORY TYPE CODE TESTS RESULT OUT OF REFERENCE UNITS RANGE LAB L501.080 70-110 mg/dL High BEDSIDE GLU 159 Result Comment: MANAGEMENT OF PATIENT CARE PER NURSING PROTOCOL Performed By: #### L501.080 #### [facility] Laboratory Point of Care [address] [place] [address] DISCHARGE INSTRUCTION Observed: 01/27/2018 Status: F Source: [place] 10:42 AM [facility] REPOSITORY [facility] Medical Records Department [address] [place] [address] Instructions for Home/Discharge Instructions 01/27/18 1029 MR#: [id number] Acct: [id number] Name: GABBI ROLLE Rep #: [id number] : 1945 72 From: Billie BOYER PCP: Sara Zarate NP Status: ADM IN You will use the following diet at home:: Calorie/Carbohydrate Controlled (specify 1200, 1400, etc), Cardiac Discharge Activity: Return to Normal Activity Call your doctor if you observe: Shortness of breath, Dizziness, Fainting spells, Chest pain Additional Instructions: You will take Coumadin 8mg tonight. Repeat INR daily at home and notify primary care provider with results to adjust coumadin dosing. You will take lasix 40mg twice daily for one week and potassium 40meq daily. Follow up with Dr. Raymundo's office in one week for further recommendations (May see OCCUPATIONAL HYGIENIST/PA). Weigh yourself daily and document weight. If you increase weight more than 4lbs, you will need to contact primary care of Dr. Raymundo to adjust lasix dosing. Check BMP in 3 days-1 Week which will be followed by your primary care physician to monitor potassium and kidney function. Allergies/Adverse Reactions: Allergies No Known Allergies Allergy (Verified 01/07/18 09:31) Medications to take at Discharge Ascorbic Acid [Vitamin C] 1,000 mg PO TID 11/18/17 Budesonide/Formoterol Fumarate [Symbicort 160-4.5 Mcg Inhaler] 2 puff IH BID 11/18/17 Calcium Citrate 500 mg PO BID 11/18/17 Cholecalciferol (Vitamin D3) [Vitamin D3] 4,000 unit PO BID 11/18/17 Febuxostat [Uloric] 80 mg PO PRN PRN 11/18/17 Linagliptin [Tradjenta] 5 mg PO PRN [...] Ferrous Sulfate 325 mg PO TID 11/29/17 Ipratropium/Albuterol Sulfate [Combivent Respimat Inhal [place]] 1 puff IH DAILY 01/03/18 Furosemide [Lasix] 40 mg PO BID 01/15/18 Potassium Chloride [K-Dur] 40 meq PO DAILY #60 tab 01/27/18 The following prescriptions were given: Potassium Chloride [K-Dur] 40 meq PO DAILY #60 tab Primary Care Physician: Sara Zarate [Primary Care Provider] - Please follow up with your Primary Care Physician in: 1 Week Please Follow Up With: Niraj Raymundo MD - Please make appt with PA/OCCUPATIONAL HYGIENIST prior to DC When: 1 Week Please Follow Up With: Halley Khan MD When: As scheduled Proposed Discharge Date: 01/27/18 01/27/18 104 <Electronically signed by Billie Segovia OCCUPATIONAL HYGIENIST-C> Date Billie Segovia OCCUPATIONAL HYGIENIST-C CC: Sara Zarate OCCUPATIONAL HYGIENIST BEDSIDE GLUCOSE Collected: 01/27/2018 Status: F Source: [place] 6:49 AM [facility] REPOSITORY Order Comment: RESULT(S) PREVIOUSLY REPORTED ON MANUAL REQUISITION DURING DOWNTIME. TYPE CODE TESTS RESULT OUT OF RANGE REFERENCE UNITS LAB L501.080 70-110 mg/dL Normal BEDSIDE GLU 106 Result Comment: MANAGEMENT OF PATIENT CARE PER NURSING PROTOCOL Performed By: #### L501.080 #### [facility] Laboratory Point of Care [facility] [place] [address] BASIC METABOLIC Collected: 01/27/2018 Status: F Source: [place] PROFILE (BMP) 5:55 AM [facility] REPOSITORY TYPE CODE TESTS RESULT OUT OF RANGE REFERENCE UNITS LAB L501.0100 74-106 mg/dL Normal GLU 93 Result Comment: Please note revised GLUCOSE reference range effective 2017. LAB L501.1000 7-18 mg/dL High BUN 32 LAB L501.1100 0.55-1.02 mg/dL High CREAT,SERUM 1.65 Result Comment: The validity of the calculated GFR AND GFRAA in patients over 70 years has not been determined. Clinical correlation is essential. LAB L501.1110 >60 mL/min Low EST GFR 32 LAB L501.1115 >60 mL/min Low EST GFR - AA 39 LAB L501.1300 10-20 RATIO Normal BUN/CRE 19.4 LAB L501.2200 8.5-10.1 mg/dL Normal CA 8.9 LAB L501.5300 136-145 mmol/L Normal NA 145 LAB L501.5600 3.5-5.1 mmol/L Normal K 4.1 LAB L501.5900 98-107 mmol/L Normal CL 107 LAB L501.6100 21.0-32.0 mmol/L Normal CO2 30.0 LAB L501.6200 5-15 Normal GAP 8 Performed By: #### L500.2500, L501.5200 #### [facility] [address] [place], [address] MAGNESIUM Collected: 01/27/2018 Status: F Source: [place] 5:55 AM [facility] REPOSITORY TYPE CODE TESTS RESULT OUT OF RANGE REFERENCE UNITS LAB L501.5200 1.6-2.6 mg/dL Normal MG 2.4 Performed By: #### L500.2500, L501.5200 #### [facility] [address] [place], [address] PROTHROMBIN TIME W/INR Collected: 01/27/2018 Status: F Source: [place] 4:30 AM [facility] REPOSITORY Order Comment: SPECIMEN OBTAINED FROM LINE DRAW TYPE CODE TESTS RESULT OUT OF RANGE REFERENCE UNITS LAB L300.4150 11.7-14.9 SECONDS High PROTIME 17.5 LAB L300.4200 Normal INR 1.4 Performed By: #### L300.3900 #### [facility] [address] [place], [address] VITAMIN B12 Collected: 01/27/2018 Status: F Source: [place] 4:30 AM [facility] REPOSITORY TYPE CODE TESTS RESULT OUT OF RANGE REFERENCE UNITS LAB L503.0105 211-911 pg/mL Normal Vitamin B12 359 Performed By: #### L503.0105 #### [facility] [address] [place], [address] BEDSIDE GLUCOSE Collected: 01/26/2018 Status: F Source: [place] 9:48 PM [facility] REPOSITORY Order Comment: RESULT(S) PREVIOUSLY REPORTED ON MANUAL REQUISITION DURING DOWNTIME. TYPE CODE TESTS RESULT OUT OF REFERENCE UNITS RANGE LAB L501.080 70-110 mg/dL High BEDSIDE GLU 144 Result Comment: MANAGEMENT OF PATIENT CARE PER NURSING PROTOCOL Performed By: #### L501.080 #### [facility] Laboratory Point of Care [address] [place] [address] CHEST PA AND LATERAL Observed: 01/26/2018 Status: F Source: [place] 5:47 PM [facility] REPOSITORY [facility] Imaging Services [address] [address] Chest PA and Lateral MR#: [id number] Acct: [id number] Name: GABBI ROLLE Rep #: [id number] : 1945 F 72 From: Jason Souza MD PCP: Sara Zarate NP Status: ADM IN Study: Chest PA and Lateral Date of Exam: 01/27/18 Exam# [id number] Ordering Dr: Rufina Huang DO STUDY: X-RAY CHEST REASON FOR EXAM: Female, 72 years old. Shortness of breath TECHNIQUE: 2 views COMPARISON: None. FINDINGS: Mild cardiomegaly. Bronchi with opaque alonso are seen centrally. No pneumonia and no pleural effusions. An Yrhwrg-b-Bugd through the right internal jugular vein has its tip in the superior vena cava. A small caliber catheter is seen projecting over the right lower Normal visualized thoracic spine. Normal visualized ribs, clavicles, and shoulders. There is no demonstrated abnormality of the visualized soft tissue structures of the upper abdomen. RAD/Chest PA and Lateral IMPRESSION: Cardiomegaly with mild bronchitis. No acute pneumonia. No CHF Electronically Signed: Jason Souza, at 6:44 EDT Tel , Service support , CC: Sara Zarate OCCUPATIONAL HYGIENIST; Fozia Huang Propeller Mechanic: Signed BEDSIDE GLUCOSE Collected: 01/26/2018 Status: F Source: [place] 4:31 PM [facility] REPOSITORY Order Comment: RESULT(S) PREVIOUSLY REPORTED ON MANUAL REQUISITION DURING DOWNTIME. TYPE CODE TESTS RESULT OUT OF RANGE REFERENCE UNITS LAB L501.080 70-110 mg/dL Normal BEDSIDE GLU 110 Result Comment: MANAGEMENT OF PATIENT CARE PER NURSING PROTOCOL Performed By: #### L501.080 #### [facility] Laboratory Point of Care [address] [place], [place] [address] BEDSIDE GLUCOSE Collected: 01/26/2018 Status: F Source: [place] 11:28 AM [facility] REPOSITORY Order Comment: RESULT(S) PREVIOUSLY REPORTED ON MANUAL REQUISITION DURING DOWNTIME. TYPE CODE TESTS RESULT OUT OF REFERENCE UNITS RANGE LAB L501.080 70-110 mg/dL High BEDSIDE GLU 138 Result Comment: MANAGEMENT OF PATIENT CARE PER NURSING PROTOCOL Performed By: #### L501.080 #### [facility] Laboratory Point of Care [address] [place], [place] [address] BEDSIDE GLUCOSE Collected: 01/26/2018 Status: F Source: [place] 6:38 AM [facility] REPOSITORY Order Comment: RESULT(S) PREVIOUSLY REPORTED ON MANUAL REQUISITION DURING DOWNTIME. TYPE CODE TESTS RESULT OUT OF RANGE REFERENCE UNITS LAB L501.080 70-110 mg/dL Normal BEDSIDE GLU 109 Result Comment: MANAGEMENT OF PATIENT CARE PER NURSING PROTOCOL Performed By: #### L501.080 #### [facility] Laboratory Point of Care [address] [place] [address] CBC-COMPLETE BLOOD CNT Collected: 01/26/2018 Status: F Source: [place] NO DIFF 4:10 AM [facility] REPOSITORY Order Comment: ORDERED ON DOWNTIME TYPE CODE TESTS RESULT OUT OF RANGE REFERENCE UNITS LAB L100.1000 4.4-11.0 K/mm3 Normal WBC 5.2 LAB L100.1200 4.2-5.4 M/mm3 Low RBC 2.93 LAB L100.1300 12.0-15.0 g/dl Low HGB 8.7 LAB L100.1400 37-47 % Low HCT 28.7 LAB L100.1500 81-99 fL Normal MCV 98.0 LAB L100.1600 27.0-32.0 pg Normal MCH 29.7 LAB L100.1700 32-36 g/gl Low MCHC 30.3 LAB L100.1810 11.6-14.6 % High RDW CV 15.8 LAB L100.1820 35.1-43.9 fl High RDW SD 56.4 LAB L100.1900 150-450 K/mm3 Normal PLT 263 LAB L100.2000 6.2-12.0 fl Normal MPV 10.8 Performed By: #### L100.0500 #### [facility] [address] [place], [place], [address] PROTHROMBIN TIME W/INR Collected: 01/26/2018 Status: F Source: [place] 4:10 AM [facility] REPOSITORY Order Comment: ORDERED ON DOWNTIME TYPE CODE TESTS RESULT OUT OF RANGE REFERENCE UNITS LAB L300.4150 11.7-14.9 SECONDS High PROTIME 16.4 LAB L300.4200 Normal INR 1.3 Performed By: #### L300.3900 #### [facility] [address] [place], [address] BASIC METABOLIC Collected: 01/26/2018 Status: F Source: [place] PROFILE (BMP) 4:10 AM [facility] REPOSITORY Order Comment: ORDERED ON DOWNTIME PCU TYPE CODE TESTS RESULT OUT OF RANGE REFERENCE UNITS LAB L501.0100 74-106 mg/dL Normal GLU 101 Result Comment: Fasting Glucose result from 100 to 125 mg/dL suggests IMPAIRED HOMEOSTASIS per A.D.A. criteria. Please note revised GLUCOSE reference range effective 2017. LAB L501.1000 7-18 mg/dL High BUN 28 LAB L501.1100 0.55-1.02 mg/dL High CREAT,SERUM 1.56 Result Comment: The validity of the calculated GFR AND GFRAA in patients over 70 years has not been determined. Clinical correlation is essential. LAB L501.1110 >60 mL/min Low EST GFR 34 LAB L501.1115 >60 mL/min Low EST GFR - AA 41 LAB L501.1300 10-20 RATIO Normal BUN/CRE 17.9 LAB L501.2200 8.5-10.1 mg/dL Normal CA 8.8 LAB L501.5300 136-145 mmol/L Normal NA 142 LAB L501.5600 3.5-5.1 mmol/L Normal K 3.7 LAB L501.5900 98-107 mmol/L Normal CL 106 LAB L501.6100 21.0-32.0 mmol/L Normal CO2 30.0 LAB L501.6200 5-15 Normal GAP 6 Performed By: #### L500.2500 #### [facility] [address] [place], [address] BASIC METABOLIC Collected: 01/26/2018 Status: F Source: [place] PROFILE (BMP) 4:10 AM [facility] REPOSITORY Order Comment: RESULT(S) PREVIOUSLY REPORTED ON MANUAL REQUISITION DURING DOWNTIME. TYPE CODE TESTS RESULT OUT OF RANGE REFERENCE UNITS LAB L501.0100 74-106 mg/dL Normal GLU 101 Result Comment: Fasting Glucose result from 100 to 125 mg/dL suggests IMPAIRED HOMEOSTASIS per A.D.A. criteria. Please note revised GLUCOSE reference range effective 2017. LAB L501.1000 7-18 mg/dL High BUN 28 LAB L501.1100 0.55-1.02 mg/dL High CREAT,SERUM 1.56 Result Comment: The validity of the calculated GFR AND GFRAA in patients over 70 years has not been determined. Clinical correlation is essential. LAB L501.1110 >60 mL/min Low EST GFR 34 LAB L501.1115 >60 mL/min Low EST GFR - AA 41 LAB L501.1300 10-20 RATIO Normal BUN/CRE 17.9 LAB L501.2200 8.5-10.1 mg/dL Normal CA 8.8 LAB L501.5300 136-145 mmol/L Normal NA 142 LAB L501.5600 3.5-5.1 mmol/L Normal K 3.7 LAB L501.5900 98-107 mmol/L Normal CL 106 LAB L501.6100 21.0-32.0 mmol/L Normal CO2 30.0 LAB L501.6200 5-15 Normal GAP 6 Performed By: #### L500.2500 #### [facility] [address] [place], [address] BEDSIDE GLUCOSE Collected: 01/25/2018 Status: F Source: [place] 9:20 PM [facility] REPOSITORY Order Comment: RESULT(S) PREVIOUSLY REPORTED ON MANUAL REQUISITION DURING DOWNTIME. TYPE CODE TESTS RESULT OUT OF REFERENCE UNITS RANGE LAB L501.080 70-110 mg/dL High BEDSIDE GLU 168 Result Comment: MANAGEMENT OF PATIENT CARE PER NURSING PROTOCOL Performed By: #### L501.080 #### [facility] Laboratory Point of Care [address] [place] [address] BEDSIDE GLUCOSE Collected: 01/25/2018 Status: F Source: [place] 4:00 PM [facility] REPOSITORY Order Comment: RESULT(S) PREVIOUSLY REPORTED ON MANUAL REQUISITION DURING DOWNTIME. TYPE CODE TESTS RESULT OUT OF RANGE REFERENCE UNITS LAB L501.080 70-110 mg/dL Normal BEDSIDE GLU 100 Result Comment: MANAGEMENT OF PATIENT CARE PER NURSING PROTOCOL Performed By: #### L501.080 #### [facility] Laboratory Point of Care [address] [place], [place] [address] BEDSIDE GLUCOSE Collected: 01/25/2018 Status: F Source: [place] 11:15 AM [facility] REPOSITORY Order Comment: RESULT(S) PREVIOUSLY REPORTED ON MANUAL REQUISITION DURING DOWNTIME. TYPE CODE TESTS RESULT OUT OF REFERENCE UNITS RANGE LAB L501.080 70-110 mg/dL High BEDSIDE GLU 150 Result Comment: MANAGEMENT OF PATIENT CARE PER NURSING PROTOCOL Performed By: #### L501.080 #### [facility] Laboratory Point of Care [address] [place] [address] Observed: 01/25/2018 Status: F Source: [place] STOOL OCCULT BLOOD 9:46 AM [facility] IFOB REPOSITORY STOB iFOB Occult Blood Positive ORGANISM 1: OCCULT BLOOD POSITIVE Performed By: #### M100.7900 #### [facility] [address] [place], [address] BEDSIDE GLUCOSE Collected: 01/25/2018 Status: F Source: [place] 6:45 AM [facility] REPOSITORY Order Comment: RESULT(S) PREVIOUSLY REPORTED ON MANUAL REQUISITION DURING DOWNTIME. TYPE CODE TESTS RESULT OUT OF RANGE REFERENCE UNITS LAB L501.080 70-110 mg/dL Normal BEDSIDE GLU 98 Result Comment: MANAGEMENT OF PATIENT CARE PER NURSING PROTOCOL Performed By: #### L501.080 #### [facility] Laboratory Point of Care [address] [place], [place] [address] BASIC METABOLIC Collected: 01/25/2018 Status: F Source: [place] PROFILE (BMP) 4:35 AM [facility] REPOSITORY Order Comment: RESULT(S) PREVIOUSLY REPORTED ON MANUAL REQUISITION DURING DOWNTIME. TYPE CODE TESTS RESULT OUT OF RANGE REFERENCE UNITS LAB L501.0100 74-106 mg/dL Normal GLU 100 Result Comment: Fasting Glucose result from 100 to 125 mg/dL suggests IMPAIRED HOMEOSTASIS per A.D.A. criteria. Please note revised GLUCOSE reference range effective 2017. LAB L501.1000 7-18 mg/dL High BUN 28 LAB L501.1100 0.55-1.02 mg/dL High CREAT,SERUM 1.39 Result Comment: The validity of the calculated GFR AND GFRAA in patients over 70 years has not been determined. Clinical correlation is essential. LAB L501.1110 >60 mL/min Low EST GFR 39 LAB L501.1115 >60 mL/min Low EST GFR - AA 47 LAB L501.1300 10-20 RATIO High BUN/CRE 20.1 LAB L501.2200 8.5-10.1 mg/dL Normal CA 8.8 LAB L501.5300 136-145 mmol/L Normal NA 144 LAB L501.5600 3.5-5.1 mmol/L Low K 3.3 LAB L501.5900 98-107 mmol/L Normal CL 105 LAB L501.6100 21.0-32.0 mmol/L Normal CO2 31.0 LAB L501.6200 5-15 Normal GAP 8 Performed By: #### L500.2500 #### [facility] [address] [place], [address] PROTHROMBIN TIME W/INR Collected: 01/25/2018 Status: F Source: [place] 12:00 AM [facility] REPOSITORY Order Comment: RESULT(S) PREVIOUSLY REPORTED ON MANUAL REQUISITION DURING DOWNTIME. TYPE CODE TESTS RESULT OUT OF RANGE REFERENCE UNITS LAB L300.4150 11.7-14.9 SECONDS High PROTIME 15.7 LAB L300.4200 Normal INR 1.3 Performed By: #### L300.3900 #### [facility] [address] [place], [address] BEDSIDE GLUCOSE Collected: 01/24/2018 Status: F Source: [place] 9:22 PM [facility] REPOSITORY Order Comment: RESULT(S) PREVIOUSLY REPORTED ON MANUAL REQUISITION DURING DOWNTIME. TYPE CODE TESTS RESULT OUT OF REFERENCE UNITS RANGE LAB L501.080 70-110 mg/dL High BEDSIDE GLU 143 Result Comment: MANAGEMENT OF PATIENT CARE PER NURSING PROTOCOL Performed By: #### L501.080 #### [facility] Point of Care [address] [place] [address] BEDSIDE GLUCOSE Collected: 01/24/2018 Status: F Source: [place] 4:50 PM [facility] REPOSITORY Order Comment: RESULT(S) PREVIOUSLY REPORTED ON MANUAL REQUISITION DURING DOWNTIME. TYPE CODE TESTS RESULT OUT OF RANGE REFERENCE UNITS LAB L501.080 70-110 mg/dL Normal BEDSIDE GLU 91 Result Comment: MANAGEMENT OF PATIENT CARE PER NURSING PROTOCOL Performed By: #### L501.080 #### [facility] Point of Care [address] [place] [address] BEDSIDE GLUCOSE Collected: 01/24/2018 Status: F Source: [place] 11:37 AM [facility] REPOSITORY Order Comment: RESULT(S) PREVIOUSLY REPORTED ON MANUAL REQUISITION DURING DOWNTIME. TYPE CODE TESTS RESULT OUT OF REFERENCE UNITS RANGE LAB L501.080 70-110 mg/dL High BEDSIDE GLU 181 Result Comment: MANAGEMENT OF PATIENT CARE PER NURSING PROTOCOL Performed By: #### L501.080 #### [facility] Point of Care [address] [place] [address] BEDSIDE GLUCOSE Collected: 01/24/2018 Status: F Source: [place] 7:29 AM [facility] REPOSITORY Order Comment: RESULT(S) PREVIOUSLY REPORTED ON MANUAL REQUISITION DURING DOWNTIME. TYPE CODE TESTS RESULT OUT OF REFERENCE UNITS RANGE LAB L501.080 70-110 mg/dL High BEDSIDE GLU 112 Result Comment: MANAGEMENT OF PATIENT CARE PER NURSING PROTOCOL Performed By: #### L501.080 #### [facility] Point of Care [address] [place], [place] [address] CBC-COMPLETE BLOOD CNT Collected: 01/24/2018 Status: F Source: [place] NO DIFF 5:55 AM [facility] REPOSITORY Order Comment: RESULT(S) PREVIOUSLY REPORTED ON MANUAL REQUISITION DURING DOWNTIME. TYPE CODE TESTS RESULT OUT OF RANGE REFERENCE UNITS LAB L100.1000 4.4-11.0 K/mm3 Normal WBC 5.2 LAB L100.1200 4.2-5.4 M/mm3 Low RBC 2.78 LAB L100.1300 12.0-15.0 g/dl Low HGB 8.3 LAB L100.1400 37-47 % Low HCT 28.3 LAB L100.1500 81-99 fL High MCV 101.3 LAB L100.1600 27.0-32.0 pg Normal MCH 29.9 LAB L100.1700 32-36 g/gl Low MCHC 29.3 LAB L100.1810 11.6-14.6 % High RDW CV 15.5 LAB L100.1820 35.1-43.9 fl High RDW SD 55.6 LAB L100.1900 150-450 K/mm3 Normal PLT 241 LAB L100.2000 6.2-12.0 fl Normal MPV 11.7 Performed By: #### L100.0500 #### [facility] [address] [place], [place], [address] PROTHROMBIN TIME W/INR Collected: 01/24/2018 Status: F Source: [place] 5:55 AM [facility] REPOSITORY TYPE CODE TESTS RESULT OUT OF RANGE REFERENCE UNITS LAB L300.4150 11.7-14.9 SECONDS High PROTIME 16.5 LAB L300.4200 Normal INR 1.3 Performed By: #### L300.3900 #### [facility] [address] [place], [address] BASIC METABOLIC Collected: 01/24/2018 Status: F Source: [place] PROFILE (BMP) 5:00 AM [facility] REPOSITORY Order Comment: RESULT(S) PREVIOUSLY REPORTED ON MANUAL REQUISITION DURING DOWNTIME. ORDERED FROM DOWNTIME REQUISITION TYPE CODE TESTS RESULT OUT OF RANGE REFERENCE UNITS LAB L501.0100 74-106 mg/dL Normal GLU 99 Result Comment: Please note revised GLUCOSE reference range effective 2017. LAB L501.1000 7-18 mg/dL High BUN 30 LAB L501.1100 0.55-1.02 mg/dL High CREAT,SERUM 1.52 Result Comment: The validity of the calculated GFR AND GFRAA in patients over 70 years has not been determined. Clinical correlation is essential. LAB L501.1110 >60 mL/min Low EST GFR 36 LAB L501.1115 >60 mL/min Low EST GFR - AA 44 LAB L501.1300 10-20 RATIO Normal BUN/CRE 19.7 LAB L501.2200 8.5-10.1 mg/dL Normal CA 8.8 LAB L501.5300 136-145 mmol/L Normal NA 144 LAB L501.5600 3.5-5.1 mmol/L Normal K 3.6 LAB L501.5900 98-107 mmol/L Normal CL 107 LAB L501.6100 21.0-32.0 mmol/L Normal CO2 30.0 LAB L501.6200 5-15 Normal GAP 7 Performed By: #### L500.2500 #### [facility] [address] [place], [address] BEDSIDE GLUCOSE Collected: 01/23/2018 Status: F Source: [place] 11:10 PM [facility] REPOSITORY Order Comment: RESULT(S) PREVIOUSLY REPORTED ON MANUAL REQUISITION DURING DOWNTIME. TYPE CODE TESTS RESULT OUT OF REFERENCE UNITS RANGE LAB L501.080 70-110 mg/dL High BEDSIDE GLU 126 Result Comment: MANAGEMENT OF PATIENT CARE PER NURSING PROTOCOL Performed By: #### L501.080 #### [facility] Point of Care [address] [place] [address] BEDSIDE GLUCOSE Collected: 01/23/2018 Status: F Source: [place] 4:48 PM [facility] REPOSITORY Order Comment: RESULT(S) PREVIOUSLY REPORTED ON MANUAL REQUISITION DURING DOWNTIME. TYPE CODE TESTS RESULT OUT OF RANGE REFERENCE UNITS LAB L501.080 70-110 mg/dL Normal BEDSIDE GLU 102 Result Comment: MANAGEMENT OF PATIENT CARE PER NURSING PROTOCOL Performed By: #### L501.080 #### [facility] Point of Care [address] [place] [address] CHEST 1 VIEW Observed: 01/23/2018 Status: F Source: [place] 3:55 PM [facility] REPOSITORY [facility] Imaging Services [address] [place] [address] Chest 1 View MR#: [id number] Acct: [id number] Name: GABBI ROLLE Rep #: [id number] : 1945 F 72 From: Alec Malik MD PCP: Sara Zarate NP Status: ADM IN Study: Chest 1 View Date of Exam: 01/22/18 Exam# [id number] Ordering Dr: Carlos Nelson MD STUDY: X-RAY CHEST REASON FOR EXAM: Female, 72 years old. Evaluation after thoracentesis. TECHNIQUE: Single frontal view of the chest. COMPARISON: January 21, 2018 FINDINGS: A right internal jugular catheter is stable with the tip projecting over the mid-SVC. There is a mild diffuse interstitial pattern unchanged. The left pleural effusion has decreased and is now miniscule. No complications from thoracentesis are noted. There is marked cardiomegaly unchanged. Normal mediastinum and veronika. Normal visualized pulmonary arteries. There is aortic tortuosity with calcification unchanged. Normal visualized thoracic spine. Normal visualized ribs, clavicles, and shoulders. There is no demonstrated abnormality of the visualized soft tissue structures of the upper abdomen. RAD/Chest 1 View IMPRESSION: Stable cardiomegaly with diffuse interstitial pattern. Decreased left pleural effusion with no complications noted from thoracentesis. Electronically Signed: Alec Malik MD at 10:48 EDT , Service support , CC: Sara Zarate NP; Carlos Nelson MD Propeller Mechanic: Signed CHEST 1 VIEW Observed: 01/23/2018 Status: F Source: [place] (PORTABLE) 2:26 PM [facility] REPOSITORY [facility] Imaging Services [address] [place] [address] Chest 1 View (Portable) MR#: [id number] Acct: [id number] Name: GABBI ROLLE Rep #: [id number] : 1945 F 72 From: Alec Malik MD PCP: Elliot SANABRIA, Sara Status: ADM IN Study: Chest 1 View (Portable) Date of Exam: 01/21/18 Exam# [id number] Ordering Dr: Ariane Lakhani MD STUDY: X-RAY CHEST REASON FOR EXAM: Female, 72 years old. Shortness of breath. TECHNIQUE: Frontal and lateral views of the chest. COMPARISON: December 23, 2017 FINDINGS: A right internal jugular catheter has been placed since the prior study with the tip projected over the upper SVC. There is low volume inspiration with a small left effusion unchanged. There is stable cardiomegaly. Normal mediastinum and veronika. Normal visualized pulmonary arteries. Normal visualized aortic arch and descending thoracic aorta. Normal visualized thoracic spine. Normal visualized ribs, clavicles, and shoulders. There is no demonstrated abnormality of the visualized soft tissue structures of the upper abdomen. RAD/Chest 1 View (Portable) IMPRESSION: Placement of right internal jugular catheter since the prior study without complication. Stable low volume inspiration, small left effusion and cardiomegaly. No acute superimposed pathology. Electronically Signed: Alec Malik MD at 13:45 EDT , Service support , CC: Sara Zarate NP; Ariane Lakhani MD Propeller Mechanic: Signed BEDSIDE GLUCOSE Collected: 01/23/2018 Status: F Source: [place] 11:55 AM [facility] REPOSITORY Order Comment: RESULT(S) PREVIOUSLY REPORTED ON MANUAL REQUISITION DURING DOWNTIME. TYPE CODE TESTS RESULT OUT OF REFERENCE UNITS RANGE LAB L501.080 70-110 mg/dL High BEDSIDE GLU 148 Result Comment: MANAGEMENT OF PATIENT CARE PER NURSING PROTOCOL Performed By: #### L501.080 #### [facility] Point of Care [address] [place] [address] CHEST PA AND LATERAL Observed: 01/23/2018 Status: F Source: [place] 11:13 AM [facility] REPOSITORY [facility] Imaging Services [address] [place] [address] Chest PA and Lateral MR#: [id number] Acct: [id number] Name: GABBI ROLLE Rep #: [id number] : 1945 F 72 From: Alec Malik MD PCP: Sara Zarate NP Status: ADM IN Study: Chest PA and Lateral Date of Exam: 01/23/18 Exam# [id number] Ordering Dr: Nohemi Walker STUDY: X-RAY CHEST REASON FOR EXAM: Female, 72 years old. Status post thoracentesis. TECHNIQUE: Frontal and lateral views of the chest. COMPARISON: January 22, 2018 FINDINGS: A right internal jugular catheter is stable. There is low volume inspiration with a diffuse interstitial pattern, relatively unchanged from the prior study. The left pleural effusion has decreased in size. No complications from thoracentesis are noted. There is stable cardiomegaly. Normal mediastinum and veronika. Normal visualized pulmonary arteries. There is aortic tortuosity unchanged. Normal visualized thoracic spine. Normal visualized ribs, clavicles, and shoulders. There is no demonstrated abnormality of the visualized soft tissue structures of the upper abdomen. RAD/Chest PA and Lateral IMPRESSION: Stable cardiomegaly with diffuse interstitial pattern and low volume inspiration. Decrease in left pleural effusion with no complications from thoracentesis. Electronically Signed: Alec Malik MD at 11:24 EDT , Service support , CC: Sara Zarate NP; Nohemi Walker Propeller Mechanic: Signed BEDSIDE GLUCOSE Collected: 01/23/2018 Status: F Source: [place] 6:37 AM [facility] REPOSITORY Order Comment: RESULT(S) PREVIOUSLY REPORTED ON MANUAL REQUISITION DURING DOWNTIME. TYPE CODE TESTS RESULT OUT OF RANGE REFERENCE UNITS LAB L501.080 70-110 mg/dL Normal BEDSIDE GLU 107 Result Comment: MANAGEMENT OF PATIENT CARE PER NURSING PROTOCOL Performed By: #### L501.080 #### [facility] Laboratory Point of Care [address] [place] [address] [address]. [place], [place] [address] CBC-COMPLETE BLOOD CNT Collected: 01/23/2018 Status: F Source: [place] NO DIFF 5:55 AM [facility] REPOSITORY Order Comment: RESULT(S) PREVIOUSLY REPORTED ON MANUAL REQUISITION DURING DOWNTIME. TYPE CODE TESTS RESULT OUT OF RANGE REFERENCE UNITS LAB L100.1000 4.4-11.0 K/mm3 Normal WBC 4.7 LAB L100.1200 4.2-5.4 M/mm3 Low RBC 2.74 LAB L100.1300 12.0-15.0 g/dl Low HGB 8.0 LAB L100.1400 37-47 % Low HCT 26.9 LAB L100.1500 81-99 fL Normal MCV 98.2 LAB L100.1600 27.0-32.0 pg Normal MCH 29.2 LAB L100.1700 32-36 g/gl Low MCHC 29.7 LAB L100.1810 11.6-14.6 % High RDW CV 16.1 LAB L100.1820 35.1-43.9 fl High RDW SD 57.0 LAB L100.1900 150-450 K/mm3 Normal PLT 216 LAB L100.2000 6.2-12.0 fl Normal MPV 10.4 Performed By: #### L100.0500 #### [facility] [address] [place], [address] PROTHROMBIN TIME W/INR Collected: 01/23/2018 Status: F Source: [place] 5:55 AM [facility] REPOSITORY Order Comment: RESULT(S) PREVIOUSLY REPORTED ON MANUAL REQUISITION DURING DOWNTIME. TYPE CODE TESTS RESULT OUT OF RANGE REFERENCE UNITS LAB L300.4150 11.7-14.9 SECONDS High PROTIME 16.8 LAB L300.4200 Normal INR 1.4 Performed By: #### L300.3900 #### [facility] [address] [place], [place], [address] BASIC METABOLIC Collected: 01/23/2018 Status: F Source: [place] PROFILE (BMP) 5:55 AM [facility] REPOSITORY Order Comment: RESULT(S) PREVIOUSLY REPORTED ON MANUAL REQUISITION DURING DOWNTIME. TYPE CODE TESTS RESULT OUT OF RANGE REFERENCE UNITS LAB L501.0100 74-106 mg/dL Normal GLU 97 Result Comment: Please note revised GLUCOSE reference range effective 2017. LAB L501.1000 7-18 mg/dL High BUN 27 LAB L501.1100 0.55-1.02 mg/dL High CREAT,SERUM 1.53 Result Comment: The validity of the calculated GFR AND GFRAA in patients over 70 years has not been determined. Clinical correlation is essential. LAB L501.1110 >60 mL/min Low EST GFR 35 LAB L501.1115 >60 mL/min Low EST GFR - AA 42 LAB L501.1300 10-20 RATIO Normal BUN/CRE 17.6 LAB L501.2200 8.5-10.1 mg/dL Normal CA 8.8 LAB L501.5300 136-145 mmol/L Normal NA 143 LAB L501.5600 3.5-5.1 mmol/L Normal K 3.7 LAB L501.5900 98-107 mmol/L High CL 108 LAB L501.6100 21.0-32.0 mmol/L Normal CO2 28.0 LAB L501.6200 5-15 Normal GAP 7 Performed By: #### L500.2500 #### [facility] [address] [place], [address] FOLATES, (FOLIC ACID) Collected: 01/23/2018 Status: F Source: [place] 5:55 AM [facility] REPOSITORY Order Comment: RESULT(S) PREVIOUSLY REPORTED ON MANUAL REQUISITION DURING DOWNTIME. Is Patient Taking Vitamins or Folic Acid Supplements? N TYPE CODE TESTS RESULT OUT OF REFERENCE UNITS RANGE LAB L506.0250 3.1-55.4 ng/mL High FOLATES 57.00 Performed By: #### L506.0250 #### [facility] [address] [place], [address] BEDSIDE GLUCOSE Collected: 01/22/2018 Status: F Source: [place] 9:30 PM [facility] REPOSITORY Order Comment: RESULT(S) PREVIOUSLY REPORTED ON MANUAL REQUISITION DURING DOWNTIME. TYPE CODE TESTS RESULT OUT OF REFERENCE UNITS RANGE LAB L501.080 70-110 mg/dL High BEDSIDE GLU 155 Result Comment: MANAGEMENT OF PATIENT CARE PER NURSING PROTOCOL Performed By: #### L501.080 #### [facility] Point of Care [address] [place] [address] BASIC METABOLIC Collected: 01/22/2018 Status: F Source: [place] PROFILE (BMP) 4:53 PM [facility] REPOSITORY Order Comment: RESULT(S) PREVIOUSLY REPORTED ON MANUAL REQUISITION DURING DOWNTIME. TYPE CODE TESTS RESULT OUT OF RANGE REFERENCE UNITS LAB L501.0100 74-106 mg/dL High GLU 133 Result Comment: Fasting Glucose result greater than or equal to 126 mg/dL suggests DIABETES MELLITUS per A.D.A. criteria. Please note revised GLUCOSE reference range effective 2017. LAB L501.1000 7-18 mg/dL High BUN 28 LAB L501.1100 0.55-1.02 mg/dL High CREAT,SERUM 1.47 Result Comment: The validity of the calculated GFR AND GFRAA in patients over 70 years has not been determined. Clinical correlation is essential. LAB L501.1110 >60 mL/min Low EST GFR 37 LAB L501.1115 >60 mL/min Low EST GFR - AA 45 LAB L501.1300 10-20 RATIO Normal BUN/CRE 19.0 LAB L501.2200 8.5-10.1 mg/dL Normal CA 9.3 LAB L501.5300 136-145 mmol/L Normal NA 142 LAB L501.5600 3.5-5.1 mmol/L Normal K 3.8 LAB L501.5900 98-107 mmol/L Normal CL 106 LAB L501.6100 21.0-32.0 mmol/L Normal CO2 26.0 LAB L501.6200 5-15 Normal GAP 10 Performed By: #### L500.2500, L501.5200 #### [facility] [address] [place], [address] MAGNESIUM Collected: 01/22/2018 Status: F Source: [place] 4:53 PM [facility] REPOSITORY Order Comment: RESULT(S) PREVIOUSLY REPORTED ON MANUAL REQUISITION DURING DOWNTIME. TYPE CODE TESTS RESULT OUT OF RANGE REFERENCE UNITS LAB L501.5200 1.6-2.6 mg/dL Normal MG 2.1 Performed By: #### L500.2500, L501.5200 #### [facility] [address] [place], [address] BEDSIDE GLUCOSE Collected: 01/22/2018 Status: F Source: [place] 4:23 PM [facility] REPOSITORY Order Comment: RESULT(S) PREVIOUSLY REPORTED ON MANUAL REQUISITION DURING DOWNTIME. TYPE CODE TESTS RESULT OUT OF REFERENCE UNITS RANGE LAB L501.080 70-110 mg/dL High BEDSIDE GLU 128 Result Comment: MANAGEMENT OF PATIENT CARE PER NURSING PROTOCOL Performed By: #### L501.080 #### [facility] Point of Care [address] [place] [address] HEMOGLOBIN A1C Collected: 01/22/2018 Status: F Source: [place] 3:20 PM [facility] REPOSITORY Order Comment: RESULT(S) PREVIOUSLY REPORTED ON MANUAL REQUISITION DURING DOWNTIME. TYPE CODE TESTS RESULT OUT OF RANGE REFERENCE UNITS LAB L501.9985 4.2-6.3 % Normal HGB A1C 4.6 Performed By: #### L501.9985 #### [facility] [address] [place], [place], [address] BEDSIDE GLUCOSE Collected: 01/22/2018 Status: F Source: [place] 11:46 AM [facility] REPOSITORY Order Comment: RESULT(S) PREVIOUSLY REPORTED ON MANUAL REQUISITION DURING DOWNTIME. TYPE CODE TESTS RESULT OUT OF REFERENCE UNITS RANGE LAB L501.080 70-110 mg/dL High BEDSIDE GLU 126 Result Comment: MANAGEMENT OF PATIENT CARE PER NURSING PROTOCOL Performed By: #### L501.080 #### [facility] Point of Care [address] [place] [address] BODY FLUID CELL Collected: 01/22/2018 Status: C Source: [place] COUNT+DIFF 10:30 AM [facility] REPOSITORY Order Comment: The reference range and other method performance specifications have not been established for this body fluid. The test must be integrated into the clinical context for interpretation. RESULT(S) PREVIOUSLY REPORTED ON MANUAL REQUISITION DURING DOWNTIME. Specimen Source: THORACENTESIS TYPE CODE TESTS RESULT OUT OF REFERENCE UNITS RANGE LAB L200.3100 THORACENTESIS Normal SOURCE/BF LAB L200.3200 YELLOW Normal COLOR/BF LAB L200.3300 CLEAR Normal APPEAR/BF LAB L200.3380 0.000-0.000 10 3/ul 0.049 High BFTC# Result Comment: This is the Total Number of Nucleated Cell Types in the Body Fluid. LAB L200.3400 /mm3 Normal 738 RBC/BF LAB L200.3500 10 3/uL Normal 0.047 WBC/BF LAB L200.3510 % Normal 27.7 BF PMN WBC% LAB L200.3515 % Normal 72.3 BF MN WBC% LAB L200.3520 10 3/uL Normal 0.034 BF MN WBC# LAB L200.3525 10 3/uL Normal 0.013 BF PMN WBC# LAB L200.3600 % Normal 48 PMN LAB L200.3700 % Normal 34 LYMPH LAB L200.3800 % Normal 5 MONO/BF LAB L200.4100 % Normal 13 OTHER CELL/BF LAB L200.4400 Normal PATH COMM/BF Reviewed Result Comment: Negative for malignant cells. Sha Hogue M.D. 01/30/18 AMENDED REPORT 01/30/18 0951 PATH COMM/BF previously reported as: May follow LAB L200.4420 Normal SEE BFM 2ND COMMENT SPEC Performed By: #### L200.0200 #### [facility] [address] [place], [address] LDH,BODY FLUID Collected: 01/22/2018 Status: F Source: [place] 10:30 AM [facility] REPOSITORY Order Comment: RESULT(S) PREVIOUSLY REPORTED ON MANUAL REQUISITION DURING DOWNTIME. Specimen Source: THORACENTESIS TYPE CODE TESTS RESULT OUT OF RANGE REFERENCE UNITS LAB L504.0250 Not Establ. Units/l Normal LDH,BF 64 Performed By: #### L504.0250 #### [facility] [address] [place], [address] BEDSIDE GLUCOSE Collected: 01/22/2018 Status: F Source: [place] 6:43 AM [facility] REPOSITORY Order Comment: RESULT(S) PREVIOUSLY REPORTED ON MANUAL REQUISITION DURING DOWNTIME. TYPE CODE TESTS RESULT OUT OF RANGE REFERENCE UNITS LAB L501.080 70-110 mg/dL Normal BEDSIDE GLU 104 Result Comment: MANAGEMENT OF PATIENT CARE PER NURSING PROTOCOL Performed By: #### L501.080 #### [facility] Point of Care [address] [place] [address] BASIC METABOLIC Collected: 01/22/2018 Status: F Source: [place] PROFILE (BMP) 5:00 AM [facility] REPOSITORY Order Comment: RESULT(S) PREVIOUSLY REPORTED ON MANUAL REQUISITION DURING DOWNTIME. 'TROP' Serial specimen #1, #2, #3, or #4: 1 TYPE CODE TESTS RESULT OUT OF RANGE REFERENCE UNITS LAB L501.0100 74-106 mg/dL Normal GLU 94 Result Comment: Please note revised GLUCOSE reference range effective 2017. LAB L501.1000 7-18 mg/dL High BUN 29 LAB L501.1100 0.55-1.02 mg/dL High CREAT,SERUM 1.32 Result Comment: The validity of the calculated GFR AND GFRAA in patients over 70 years has not been determined. Clinical correlation is essential. LAB L501.1110 >60 mL/min Low EST GFR 42 LAB L501.1115 >60 mL/min Low EST GFR - AA 51 LAB L501.1300 10-20 RATIO High BUN/CRE 22.0 LAB L501.2200 8.5-10.1 mg/dL Normal CA 8.9 LAB L501.5300 136-145 mmol/L Normal NA 143 LAB L501.5600 3.5-5.1 mmol/L Normal K 4.0 LAB L501.5900 98-107 mmol/L High CL 110 LAB L501.6100 21.0-32.0 mmol/L Normal CO2 26.0 LAB L501.6200 5-15 Normal GAP 7 Performed By: #### L500.2500, L500.4100, L501.4010, L501.5200, L501.9520 #### [facility] [address] [place], [place], [id number] LIPID PROFILE Collected: 01/22/2018 Status: F Source: [place] 5:00 AM [facility] REPOSITORY Order Comment: RESULT(S) PREVIOUSLY REPORTED ON MANUAL REQUISITION DURING DOWNTIME. 'TROP' Serial specimen #1, #2, #3, or #4: 1 TYPE CODE TESTS RESULT OUT OF RANGE REFERENCE UNITS LAB L501.4900 200 mg/dL Normal CHOL 83 Result Comment: <200 mg/dL Desirable 200-240 mg/dL Borderline >240 mg/dL High Risk LAB L501.5000 mg/dL Normal TRIG 83 Result Comment: The drugs N-Acetylcysteine and Metamizole may falsely depress this assay. Serum Triglycerides Reference Interval Normal <150 mg/dL Borderline high 150 - 199 mg/dL High 200 - 499 mg/dL Very High > or = 500 mg/dL LAB L501.6400 mg/dL Low HDL 28 Result Comment: The drugs N-Acetylcysteine and Metamizole may falsely depress this assay. Reference Range HDL <40 mg/dL Low HDL Cholesterol HDL >or= 60 mg/dL High HDL Cholesterol LAB L501.6500 0-130 mg/dL Normal LDL 38 LAB L501.6600 5-40 mg/dL Normal VLDL 17 Performed By: #### L500.2500, L500.4100, L501.4010, L501.5200, L501.9520 #### [facility] [address] [place], [place], [address] TROPONIN-I Collected: 01/22/2018 Status: F Source: [place] 5:00 AM [facility] REPOSITORY Order Comment: RESULT(S) PREVIOUSLY REPORTED ON MANUAL REQUISITION DURING DOWNTIME. 'TROP' Serial specimen #1, #2, #3, or #4: 1 TYPE CODE TESTS RESULT OUT OF RANGE REFERENCE UNITS LAB L501.4010 <0.045 ng/mL Normal < 0.015 TROPONIN-I Result Comment: TROPONIN-I EXPECTED VALUES <0.045 Negative 0.045 - 0.590 Consistent with Cardiac Damage > OR = 0.600 Critical Value Not every elevated troponin is indicative of MN. These values should be used with clinical judgement in examining the patient's clinical picture for diagnosis. To establish a diagnosis of MN versus myocardial injury, there must be a demonstrated rise and/or fall in the troponin values, in addition to ischemic symptoms, EKG changes, new regional wall motion abnormality, and/or angiographical evidence. PLEASE NOTE: REFERENCE RANGES EDITED 17 Performed By: #### L500.2500, L500.4100, L501.4010, L501.5200, L501.9520 #### [facility] [address] [place], [place], [id number] MAGNESIUM Collected: 01/22/2018 Status: F Source: [place] 5:00 AM [facility] REPOSITORY Order Comment: RESULT(S) PREVIOUSLY REPORTED ON MANUAL REQUISITION DURING DOWNTIME. 'TROP' Serial specimen #1, #2, #3, or #4: 1 TYPE CODE TESTS RESULT OUT OF RANGE REFERENCE UNITS LAB L501.5200 1.6-2.6 mg/dL Normal MG 2.2 Performed By: #### L500.2500, L500.4100, L501.4010, L501.5200, L501.9520 #### [facility] [address] [place], [place], [address] THYROID STIM HORMONE Collected: 01/22/2018 Status: F Source: [place] (TSH) 5:00 AM [facility] REPOSITORY Order Comment: RESULT(S) PREVIOUSLY REPORTED ON MANUAL REQUISITION DURING DOWNTIME. 'TROP' Serial specimen #1, #2, #3, or #4: 1 TYPE CODE TESTS RESULT OUT OF RANGE REFERENCE UNITS LAB L501.9520 0.358-3.74 uIU/mL High TSH 5.14 Performed By: #### L500.2500, L500.4100, L501.4010, L501.5200, L501.9520 #### [facility] [address] [place], [place], [address] CBC-COMPLETE BLOOD CNT Collected: 01/22/2018 Status: F Source: [place] NO DIFF 5:00 AM [facility] REPOSITORY Order Comment: RESULT(S) PREVIOUSLY REPORTED ON MANUAL REQUISITION DURING DOWNTIME. TYPE CODE TESTS RESULT OUT OF RANGE REFERENCE UNITS LAB L100.1000 4.4-11.0 K/mm3 Normal WBC 4.9 LAB L100.1200 4.2-5.4 M/mm3 Low RBC 2.70 LAB L100.1300 12.0-15.0 g/dl Low HGB 8.2 LAB L100.1400 37-47 % Low HCT 27.7 LAB L100.1500 81-99 fL High MCV 102.6 LAB L100.1600 27.0-32.0 pg Normal MCH 30.4 LAB L100.1700 32-36 g/gl Low MCHC 29.6 LAB L100.1810 11.6-14.6 % High RDW CV 15.7 LAB L100.1820 35.1-43.9 fl High RDW SD 57.4 LAB L100.1900 150-450 K/mm3 Normal PLT 209 LAB L100.2000 6.2-12.0 fl Normal MPV 11.3 Performed By: #### L100.0500 #### [facility] [address] [place], [place], [address] PROTHROMBIN TIME W/INR Collected: 01/22/2018 Status: F Source: [place] 5:00 AM [facility] REPOSITORY Order Comment: RESULT(S) PREVIOUSLY REPORTED ON MANUAL REQUISITION DURING DOWNTIME. TYPE CODE TESTS RESULT OUT OF RANGE REFERENCE UNITS LAB L300.4150 11.7-14.9 SECONDS High PROTIME 16.1 LAB L300.4200 Normal INR 1.3 Performed By: #### L300.3900 #### [facility] [address] [place], [place], [address] TROPONIN-I Collected: 01/22/2018 Status: F Source: [place] 2:00 AM [facility] REPOSITORY Order Comment: RESULT(S) PREVIOUSLY REPORTED ON MANUAL REQUISITION DURING DOWNTIME. 'TROP' Serial specimen #1, #2, #3, or #4: 1 TYPE CODE TESTS RESULT OUT OF RANGE REFERENCE UNITS LAB L501.4010 <0.045 ng/mL Normal < 0.015 TROPONIN-I Result Comment: TROPONIN-I EXPECTED VALUES <0.045 Negative 0.045 - 0.590 Consistent with Cardiac Damage > OR = 0.600 Critical Value Not every elevated troponin is indicative of MN. These values should be used with clinical judgement in examining the patient's clinical picture for diagnosis. To establish a diagnosis of MN versus myocardial injury, there must be a demonstrated rise and/or fall in the troponin values, in addition to ischemic symptoms, EKG changes, new regional wall motion abnormality, and/or angiographical evidence. PLEASE NOTE: REFERENCE RANGES EDITED 17 Performed By: #### L501.4010 #### [facility] [address] [place], [place], [address] BEDSIDE GLUCOSE Collected: 01/21/2018 Status: F Source: [place] 11:40 PM [facility] REPOSITORY Order Comment: RESULT(S) PREVIOUSLY REPORTED ON MANUAL REQUISITION DURING DOWNTIME. TYPE CODE TESTS RESULT OUT OF REFERENCE UNITS RANGE LAB L501.080 70-110 mg/dL High BEDSIDE GLU 123 Result Comment: MANAGEMENT OF PATIENT CARE PER NURSING PROTOCOL Performed By: #### L501.080 #### [facility] Point of Care [address] [place] [address] TROPONIN-I Collected: 01/21/2018 Status: F Source: [place] 11:00 PM [facility] REPOSITORY Order Comment: RESULT(S) PREVIOUSLY REPORTED ON MANUAL REQUISITION DURING DOWNTIME. 'TROP' Serial specimen #1, #2, #3, or #4: 1 TYPE CODE TESTS RESULT OUT OF RANGE REFERENCE UNITS LAB L501.4010 <0.045 ng/mL Normal < 0.015 TROPONIN-I Result Comment: TROPONIN-I EXPECTED VALUES <0.045 Negative 0.045 - 0.590 Consistent with Cardiac Damage > OR = 0.600 Critical Value Not every elevated troponin is indicative of MN. These values should be used with clinical judgement in examining the patient's clinical picture for diagnosis. To establish a diagnosis of MN versus myocardial injury, there must be a demonstrated rise and/or fall in the troponin values, in addition to ischemic symptoms, EKG changes, new regional wall motion abnormality, and/or angiographical evidence. PLEASE NOTE: REFERENCE RANGES EDITED 17 Performed By: #### L501.4010 #### [facility] [address] [place], [address] PROTHROMBIN TIME W/INR Collected: 01/21/2018 Status: F Source: [place] 7:00 PM [facility] REPOSITORY Order Comment: RESULT(S) PREVIOUSLY REPORTED ON MANUAL REQUISITION DURING DOWNTIME. TYPE CODE TESTS RESULT OUT OF RANGE REFERENCE UNITS LAB L300.4150 11.7-14.9 SECONDS High PROTIME 15.9 LAB L300.4200 Normal INR 1.3 Performed By: #### L300.3900 #### [facility] [address] [place], [address] CBC W/DIFF, AUTOMATED Collected: 01/21/2018 Status: F Source: [place] 5:00 PM [facility] REPOSITORY Order Comment: RESULT(S) PREVIOUSLY REPORTED ON MANUAL REQUISITION DURING DOWNTIME. TYPE CODE TESTS RESULT OUT OF RANGE REFERENCE UNITS LAB L100.1000 4.4-11.0 K/mm3 Normal WBC 6.3 LAB L100.1200 4.2-5.4 M/mm3 Low RBC 3.16 LAB L100.1300 12.0-15.0 g/dl Low HGB 9.3 LAB L100.1400 37-47 % Low HCT 31.3 LAB L100.1500 81-99 fL High MCV 99.1 LAB L100.1600 27.0-32.0 pg Normal MCH 29.4 LAB L100.1700 32-36 g/gl Low MCHC 29.7 LAB L100.1810 11.6-14.6 % High RDW CV 16.2 LAB L100.1820 35.1-43.9 fl High RDW SD 59.0 LAB L100.1900 150-450 K/mm3 Normal PLT 247 LAB L100.2000 6.2-12.0 fl Normal MPV 10.7 LAB L100.2100 47-70 % High NEUT% 75.5 LAB L100.2200 19-41 % Low LY% 14.6 LAB L100.2300 0-10 % Normal MONO% 7.3 LAB L100.2400 0-5 % Normal EO% 2.2 LAB L100.2500 0-1 % Normal BASO% 0.2 LAB L100.2550 0.0-0.9 % Normal IM GRAN % 0.200 Result Comment: IG% - Immature Granulocytes (promyelocytes, myelocytes and metamyelocytes) > 1% indicates that a LEFT SHIFT is Present. LAB L100.2620 2.0-7.7 X10 3/uL Normal Absolute Neut 4.8 LAB L100.2720 0.83-4.51 X10 3/ul Normal Absolute Lymph 0.92 Performed By: #### L100.0100 #### [facility] [address] [place], [address] FLUID/WASHING Observed: 01/21/2018 Status: F Source: [place] 12:00 AM [facility] REPOSITORY Patient: GABBI ORLLE : 1945 (72/F) Acct Num: [id number] Phys: Leslie BALDWIN,Carlos Unit Num: [id number] Loc: US Specimen: [id number] Received: 01/24/18846 Spec Type: Fluid TISSUES TISSUES: THORACIC FLUID CYTOLOGY GROSS Received is 695 ml of laquita cloudy fluid labeled with the patient's name and and designated per the requisition as thoracentesis. Submitted for cytology preparation including cell block. / 01/23/18 TC:5 CPT: 21809, 92102 CYTOLOGY STUDY Slides are reviewed. The specimen consists of mesothelial cells, macrophages and inflammatory cells. DIAGNOSIS CYTOLOGY Thoracentesis fluid for cytology (cytospin and cell block): Negative for malignant cells. SJ:rachael 01/25/18 HEADER OPERATION: Thoracentesis PRE-OP DIAGNOSIS: Pleural effusion TISSUE SUBMITTED: Thoracentesis fluid for cytology Signed Sha Hogue 01/27/18 <signature on file> Performed By: #### PFLU #### [facility] [address] [place], [address] BNP,B-TYPE NATRIURETIC Collected: 01/21/2018 Status: F Source: CLAUDIA PEPTIDE 12:00 AM [facility] REPOSITORY Order Comment: RESULT(S) PREVIOUSLY REPORTED ON MANUAL REQUISITION DURING DOWNTIME. TYPE CODE TESTS RESULT OUT OF RANGE REFERENCE UNITS LAB L503.6620 0-100 pg/mL High B-TYPE 279.9 MARY JO PEP Performed By: #### L503.6620 #### [facility] [address] [place], [place], [address] BASIC METABOLIC Collected: 01/21/2018 Status: F Source: CLAUDIA PROFILE (BMP) 12:00 AM [facility] REPOSITORY Order Comment: RESULT(S) PREVIOUSLY REPORTED ON MANUAL REQUISITION DURING DOWNTIME. TYPE CODE TESTS RESULT OUT OF RANGE REFERENCE UNITS LAB L501.0100 74-106 mg/dL High GLU 111 Result Comment: Fasting Glucose result from 100 to 125 mg/dL suggests IMPAIRED HOMEOSTASIS per A.D.A. criteria. Please note revised GLUCOSE reference range effective 2017. LAB L501.1000 7-18 mg/dL High BUN 30 LAB L501.1100 0.55-1.02 mg/dL High CREAT,SERUM 1.38 Result Comment: The validity of the calculated GFR AND GFRAA in patients over 70 years has not been determined. Clinical correlation is essential. LAB L501.1110 >60 mL/min Low EST GFR 40 LAB L501.1115 >60 mL/min Low EST GFR - AA 48 LAB L501.1300 10-20 RATIO High BUN/CRE 21.7 LAB L501.2200 8.5-10.1 mg/dL Normal CA 9.2 LAB L501.5300 136-145 mmol/L Normal NA 143 LAB L501.5600 3.5-5.1 mmol/L Normal K 4.2 LAB L501.5900 98-107 mmol/L High CL 108 LAB L501.6100 21.0-32.0 mmol/L Normal CO2 26.0 LAB L501.6200 5-15 Normal GAP 9 Performed By: #### L500.2500 #### [facility] [address] [place], [place], [address] PROTHROMBIN TIME W/INR Collected: 01/20/2018 Status: F Source: SHER[place] 9:30 AM [facility] REPOSITORY Order Comment: RESULT(S) PREVIOUSLY REPORTED ON MANUAL REQUISITION DURING DOWNTIME. TYPE CODE TESTS RESULT OUT OF RANGE REFERENCE UNITS LAB L300.4150 11.7-14.9 SECONDS High PROTIME 16.2 LAB L300.4200 Normal INR 1.3 Performed By: #### L300.3900, L300.4310 #### [facility] [address] [place], [address] PARTIAL THROMBOPLAST Collected: 01/20/2018 Status: F Source: CLAUDIA TIME 9:30 AM [facility] REPOSITORY Order Comment: RESULT(S) PREVIOUSLY REPORTED ON MANUAL REQUISITION DURING DOWNTIME. TYPE CODE TESTS RESULT OUT OF REFERENCE UNITS RANGE LAB L300.4310 24.1-36.2 Seconds High PTT 42.2 Performed By: #### L300.3900, L300.4310 #### [facility] [address] [place], [address] SURGERY VISIT REPORT Observed: 01/16/2018 Status: F Source: [place] 9:36 AM [facility] REPOSITORY [facility] [address] [place] [address] OFFICE VISIT Date of Service: 01/15/18 MR#: [id number] Acct: [id number] Name: GABBI ROLLE Rep #: [id number] : 1945 Provider: Bo Madrid MD Age/Sex: 72/F Location: [facility] Status: Signed Intake Intake Visit Reasons: F/U PORT PLACEMENT 01/08/2018 Chief Complaint: port consult Allergies No Known Allergies Allergy (Verified 01/07/18 09:31) Medications Ascorbic Acid [Vitamin C] 1,000 mg PO TID 11/18/17 [History Confirmed 01/08/18] Budesonide/Formoterol Fumarate [Symbicort 160-4.5 Mcg Inhaler] 2 puff IH BID 11/18/17 [History Confirmed 01/08/18] Calcium Citrate 500 mg PO BID 11/18/17 [History Confirmed 01/08/18] Cholecalciferol (Vitamin D3) [Vitamin D3] 4,000 unit PO BID 11/18/17 [History Confirmed 01/08/18] Febuxostat [Uloric] 80 mg PO PRN PRN 11/18/17 [History Confirmed 01/08/18] Furosemide [Lasix] 20 mg PO DAILY 11/18/17 [History Confirmed 01/08/18] Linagliptin [Tradjenta] 5 mg PO PRN PRN 11/18/17 [History Confirmed 01/08/18] Lisinopril [Zestril] 10 mg PO DAILY 11/18/17 [History Confirmed 01/08/18] Magnesium Oxide [Magnesium] 250 mg PO BID 11/18/17 [History Confirmed 01/08/18] Metoprolol Tartrate [Lopressor (beta long)] 100 mg PO BID 11/18/17 [History Confirmed 01/08/18] Multivitamin [Daily Multiple Vitamin] 1 ea PO DAILY 11/18/17 [History Confirmed 01/08/18] Pravastatin Sodium 80 mg PO QHS 11/18/17 [History Confirmed 01/08/18] Ropinirole HCl [Requip] 0.25 mg PO QHS 11/18/17 [History Confirmed 01/08/18] Sildenafil Citrate [Revatio] 20 mg PO TID 11/18/17 [History Confirmed 01/08/18] Ubidecarenone [Coenzyme Q-10] 100 mg PO DAILY 11/18/17 [History Confirmed 01/08/18] Warfarin [Coumadin] 5 mg PO DAILY 11/18/17 [History Confirmed 01/08/18] hydrALAZINE [Apresoline] 25 mg PO TID 11/18/17 [History Confirmed 01/08/18] Ferrous Sulfate 325 mg PO TID 11/29/17 [History Confirmed 01/08/18] Ipratropium/Albuterol Sulfate [Combivent Respimat Inhal [place]] 1 puff IH DAILY 01/03/18 [History Confirmed 01/08/18] Furosemide [Lasix] 40 mg PO BID 01/15/18 [History Confirmed 01/15/18] PFSH Medical History Atherosclerotic heart disease of [place] coro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 pectoris (Chronic) Chronic [...] has used her port once and she reports that her incision healing well with no issues. Exam Chest Chest palpation AND inspection: normal inspection of the chest Other: Incision is clean dry and intact. Assessment AND Plan Problems 1. Encounter for insertion of venous access port Z45.2 Plan 1. The incision is clean dry and intact with no erythema or ecchymosis. She is using her port once with no events. She can follow-up for port removal when it is no longer needed. Bo Madrid MD Pager: [facility] [address] [place] [address], [address] [place] [phone] Office: Coding Level of Care Code Global Post Op Diagnoses Encounter for insertion of venous access port Z45.2 01/16/18 0936 <Electronically signed by Bo Madrid MD> Date Bo Madrid MD Cosigner Signature: Date (if applicable) CC: Sara Zarate OCCUPATIONAL HYGIENIST BASIC METABOLIC Collected: 01/15/2018 Status: F Source: [place] PROFILE (BMP) 10:55 AM [facility] REPOSITORY TYPE CODE TESTS RESULT OUT OF RANGE REFERENCE UNITS LAB L501.0100 74-106 mg/dL High GLU 132 Result Comment: Fasting Glucose result greater than or equal to 126 mg/dL suggests DIABETES MELLITUS per A.D.A. criteria. Please note revised GLUCOSE reference range effective 2017. LAB L501.1000 7-18 mg/dL High BUN 24 LAB L501.1100 0.55-1.02 mg/dL High CREAT,SERUM 1.35 Result Comment: The validity of the calculated GFR AND GFRAA in patients over 70 years has not been determined. Clinical correlation is essential. LAB L501.1110 >60 mL/min Low EST GFR 41 Result Comment: Non- GFR Calc LAB L501.1115 >60 mL/min Low EST GFR - AA 49 Result Comment: GFR Calc LAB L501.1255 ml/min Normal Estimated CRCL 35.55 LAB L501.1300 10-20 RATIO Normal BUN/CRE 17.8 LAB L501.2200 8.5-10 mg/dL Normal .1 CA 9.2 LAB L501.5300 136-14 mmol/L Normal 5 NA 139 LAB L501.5600 3.5-5. mmol/L Normal 1 K 4.5 LAB L501.5900 98-107 mmol/L Normal CL 106 LAB L501.6100 21.0-3 mmol/L Normal 2.0 CO2 24.0 LAB L501.6200 5-15 Normal GAP 9 Performed By: #### L500.2500 #### [facility] [address] [place], [address] CBC W/DIFF, AUTOMATED Collected: 01/15/2018 Status: F Source: CLAUDIA 10:55 AM [facility] REPOSITORY TYPE CODE TESTS RESULT OUT OF RANGE REFERENCE UNITS LAB L100.1000 4.4-11.0 K/mm3 Normal WBC 7.1 LAB L100.1200 4.2-5.4 M/mm3 Low RBC 3.06 LAB L100.1300 12.0-15.0 g/dl Low HGB 9.2 LAB L100.1400 37-47 % Low HCT 31.4 LAB L100.1500 81-99 fL High MCV 102.6 LAB L100.1600 27.0-32.0 pg Normal MCH 30.1 LAB L100.1700 32-36 g/gl Low MCHC 29.3 LAB L100.1810 11.6-14.6 % High RDW CV 16.6 LAB L100.1820 35.1-43.9 fl High RDW SD 60.8 LAB L100.1900 150-450 K/mm3 Normal PLT 234 LAB L100.2000 6.2-12.0 fl Normal MPV 10.6 LAB L100.2100 47-70 % High NEUT% 86.1 LAB L100.2200 19-41 % Low LY% 7.9 LAB L100.2300 0-10 % Normal MONO% 4.5 LAB L100.2400 0-5 % Normal EO% 1.1 LAB L100.2500 0-1 % Normal BASO% 0.3 LAB L100.2550 0.0-0.9 % Normal IM GRAN % 0.100 Result Comment: IG% - Immature Granulocytes (promyelocytes, myelocytes and metamyelocytes) > 1% indicates that a LEFT SHIFT is Present. LAB L100.2620 2.0-7.7 X10 3/uL Normal Absolute Neut 6.1 LAB L100.2720 0.83-4.51 X10 3/ul Low Absolute Lymph 0.56 Performed By: #### L100.0100 #### [facility] [address] [place], [place], [address] BNP,B-TYPE NATRIURETIC Collected: 01/15/2018 Status: F Source: CLAUDIA PEPTIDE 10:55 AM [facility] REPOSITORY TYPE CODE TESTS RESULT OUT OF RANGE REFERENCE UNITS LAB L503.6620 0-100 pg/mL High B-TYPE 208.1 MARY JO PEP Performed By: #### L503.6620 #### [facility] [address] [place], [address] OPERATIVE REPORT Observed: 01/08/2018 Status: F Source: [place] 11:58 AM [facility] REPOSITORY [facility] Medical Records Department [address] [place] [address] Operative Report 01/08/18 1157 MR#: [id number] Acct: [id number] Name: GABBI ROLLE Rep #: [id number] : 1945 72 From: Bo Madrid MD PCP: Sara Zarate NP Status: REG [facility] Location: [place] [address] Problem List (1) Encounter for insertion of venous access port Status: Acute (2) Anemia Status: Chronic Qualifiers: Anemia type: unspecified type Qualified Code(s): D64.9 - Anemia, unspecified Report of Operation Date of Procedure: 01/08/18 Pre-Operative Diagnosis: Anemia need for chronic vascular access for iron infusions Post-Operative Diagnosis: Same Surgery/Procedure Performed:: Fluoroscopy and ultrasound-guided right chest port placement utilizing right IJ Specimen's removed: None Description of Procedure: After obtaining [...] was made for the port. 1% lidocaine with epinephrine was injected in the proposed port site. An incision was made with scalpel. Electrocautery was used to make a pocket under the skin and subcutaneous tissue. Hemostasis was obtained. Next, the catheter was tunneled up to the neck incision site and placed through the introducer. The peel-away introducer was removed and the position of the catheter was confirmed on fluoroscopy. Next, the catheter was trimmed and attached to the port with the locking device. Interrupted 2-0 PDS were used to anchor the port to the chest wall and then the port was placed inside the pocket. The pocket was then flushed with saline and the port irrigated with saline. There was good blood return and the port flushed easily. Next, heparin was injected into the port. The skin was closed with subcutaneous interrupted 3-0 Vicryl sutures. A single 3-0 Vicryl suture placed under the skin at the neck incision site. Steri-Strips were placed as well as op sites. Patient tolerated procedure well, was taken to PACU in stable condition. Chest x-ray will be obtained. Grafts/Implants Used: 8 [employer] and right IJ 01/08/18 1158 <Electronically signed by Bo Madrid MD> Date Bo Madrid MD CC: Sara Zarate NP; Bo Madrid MD Signed CXR FOR LINE PLACEMENT Observed: 01/08/2018 Status: F Source: CLAUDIA 11:57 AM [facility] REPOSITORY [facility] Imaging Services [address] [place] [address] CXR for Line Placement MR#: [id number] Acct: [id number] Name: GABBI ROLLE Rep #: [id number] : 1945 F 72 From: Irvin Edwards MD PCP: Sara Zarate NP Status: REG [facility] Study: CXR for Line Placement Date of Exam: 01/08/18 Exam# [id number] Ordering Dr: Bo Madrid MD STUDY: X-RAY CHEST REASON FOR EXAM: Female, 72 years old. Right port insertion. TECHNIQUE: Single AP portable view of the chest. COMPARISON: Comparison is made with prior study dated December 23, 2017. FINDINGS: A right-sided portacatheter is in place. The tip is at the junction of the superior vena cava and right atrium. EKG electrodes are seen. Stable small left pleural effusion with underlying atelectasis and/or infiltrate. Mild increased markings at the right lung base as well as the right suprahilar region. Follow-up is recommended. Normal size heart. Normal mediastinum and veronika. Normal visualized pulmonary arteries. There [...] right atrium. Stable findings in the lungs. Electronically Signed: Irvin Edwards MD at 12:57 EDT Tel [phone], Service support , CC: Sara Zarate NP; Bo Madrid MD Propeller Mechanic: Signed DISCHARGE INSTRUCTION Observed: 01/08/2018 Status: F Source: [place] 11:56 AM [facility] REPOSITORY [facility] Medical Records Department [address] [place] [address] Instructions for Home/Discharge Instructions 01/08/18 1155 MR#: [id number] Acct: [id number] Name: GABBI ROLLE Rep #: [id number] : 1945 72 From: Bo Madrid MD PCP: Sara Zarate NP Status: REG [facility] Discharge Diet: No Restrictions - Pain medication may cause nausea. You should typically eat light foods as you take your pain medication. Discharge Activity: Return to Normal Activity, May Shower - with your bandage in place in 1-2 days after surgery. DO NOT SHOWER WHEN YOUR PORT IS ACCESSED. Call your doctor if your incision/area has: Continuous Slow Oozing, Sudden Increased Bleeding, Increased Pain/ Swelling, Increased Redness Call your doctor if you observe: Fever of 101 or Higher Remove Dressing in (days):: 2 - When you remove the bandage, leave the steri-strips intact until they fall off. Allergies/Adverse Reactions: Allergies No Known Allergies Allergy (Verified 01/07/18 09:31) Medications to take at Discharge [...] Ferrous Sulfate 325 mg PO TID 11/29/17 Ipratropium/Albuterol Sulfate [Combivent Respimat Inhal [place]] 1 puff IH DAILY 01/03/18 Primary Care Physician: Sara Zarate [Primary Care Provider] - Please Follow Up With: Bo Madrid MD When: call tomorrow to make 2 week follow up appt [phone] 01/08/18 0249 <Electronically signed by Bo Madrid MD> Date Bo Madrid MD CC: Sara Zarate OCCUPATIONAL HYGIENIST PROTIME W/INR Collected: 01/08/2018 Status: F Source: CLAUDIA FINGERSTICK 9:44 AM [facility] REPOSITORY TYPE CODE TESTS RESULT OUT OF RANGE REFERENCE UNITS LAB L9200.1001 11.9-14.4 SEC Normal PROTIME ISTAT 13.7 Result Comment: Reference Range 11.9 - 14.4 LAB L9200.2000 Normal INR ISTAT 1.20 Result Comment: Critical Value > 3.5 Performed By: #### L9200.0000 #### [facility] Point of Care [address] [place] [address] BEDSIDE GLUCOSE Collected: 01/08/2018 Status: F Source: CLAUDIA 9:43 AM [facility] REPOSITORY TYPE CODE TESTS RESULT OUT OF REFERENCE UNITS RANGE LAB L501.080 70-110 mg/dL High BEDSIDE GLU 147 Result Comment: MANAGEMENT OF PATIENT CARE PER NURSING PROTOCOL Performed By: #### L501.080 #### [facility] Point of Care [address] [place] [address] SURGERY VISIT REPORT Observed: 01/03/2018 Status: F Source: CLAUDIA 3:17 PM [facility] REPOSITORY [facility] [address] [place] [address] OFFICE VISIT Date of Service: 01/03/18 MR#: [id number] Acct: [id number] Name: GABBI ROLLE Rep #: [id number] : 1945 Provider: Bo Madrid MD Age/Sex: 72/F Location: [facility] Status: Signed Intake Vital Signs01/03/18 Height 5 ft 7 in 01/03/18 Weight: 378 lb 9 oz 01/03/18 Body Mass Index (BMI) 59.3 Intake Visit Reasons: Port Placement Chief Complaint: port consult Office Correspondent Required: No Is patient in pain?: No Allergies No Known Allergies Allergy (Verified 01/01/18 13:05) Medications Ascorbic Acid [Vitamin C] 1,000 mg PO BID 11/18/17 [History Confirmed 01/03/18] Budesonide/Formoterol Fumarate [Symbicort 160-4.5 Mcg Inhaler] 2 puff IH BID 11/18/17 [History Confirmed 01/03/18] Calcium Citrate 500 mg PO TID 11/18/17 [History Confirmed 01/03/18] Cholecalciferol (Vitamin D3) [Vitamin D3] 4,000 unit PO DAILY 11/18/17 [History Confirmed 01/03/18] Febuxostat [Uloric] 80 mg PO DAILY 11/18/17 [History Confirmed 01/03/18] Furosemide [Lasix] 20 mg PO DAILY 11/18/17 [History Confirmed 01/03/18] Linagliptin [Tradjenta] 5 mg PO DAILY PRN 11/18/17 [History Confirmed 01/03/18] Lisinopril [Zestril] 10 mg PO DAILY 11/18/17 [History Confirmed 01/03/18] Magnesium Oxide [Magnesium] 250 mg PO BID 11/18/17 [History Confirmed 01/03/18] Metoprolol Tartrate [Lopressor (beta long)] 100 mg PO BID 11/18/17 [History Confirmed 01/03/18] Multivitamin [Daily Multiple Vitamin] 1 ea PO DAILY 11/18/17 [History Confirmed 01/03/18] Pravastatin Sodium 80 mg PO QHS 11/18/17 [History Confirmed 01/03/18] Ropinirole HCl [Requip] 0.25 mg PO QHS 11/18/17 [History Confirmed 01/03/18] Sildenafil Citrate [Revatio] 20 mg PO TID 11/18/17 [History Confirmed 01/03/18] Ubidecarenone [Coenzyme Q-10] 100 mg PO DAILY 11/18/17 [History Confirmed 01/03/18] Warfarin [Coumadin] 5 mg PO DAILY 11/18/17 [History Confirmed 01/03/18] hydrALAZINE [Apresoline] 25 mg PO TID 11/18/17 [History Confirmed 01/03/18] Ferrous Sulfate 325 mg PO TID 11/29/17 [History Confirmed 01/03/18] Ipratropium/Albuterol Sulfate [Combivent Respimat Inhal [place]] 1 puff IH 01/03/18 [History Confirmed 01/03/18] Is last menstrual period known: No Post menopausal: Yes Patient : No PFSH Medical History Atherosclerotic heart disease of [place] coro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 pectoris (Chronic) Chronic [...] referred here by Dr. Khan for port placement. ROS General General: Yes weight change and fatigue; no appetite, colon cancer, breast cancer or weakness HEENT HEENT: No difficulty swallowing, eye injury, eye surgery, swollen glands or hoarseness Endo Endocrine: Yes diabetes mellitus; no thyroid [...] constipation, Yes blood in stool, No acid reflux, Yes hemorrhoids, No ulcers, No gallbladder problem, Yes black,tarry stools Omer Hematologic: Yes blood thinners, No blood disorders, Yes bleeding, Yes anemia, No blood clots Neuro Neurologic: No weakness Exam Const General: cooperative Nutritional Appearance: obese morbidly obese Orientation: alert, oriented x3 Chest Chest palpation AND inspection: normal inspection of the chest Resp Effort AND Inspection: normal respiratory effort Auscultation: clear to auscultation bilaterally Cardio Rate: regular rate Rhythm: regular rhythm Heart Sounds: murmur GI Inspection: normal to inspection Extrem General: edema Laterality: bilateral Assessment AND Plan Problems [...] risks and agrees to proceed. 3. I recommended the patient that she stop Coumadin 5 days before the procedure and we will check an INR the day of. Bo Madrid MD Pager: [facility] [address] [place] [address], [address] [place] [address] Office: Coding Level of Care Code Off vis,new,level 3 Diagnoses Encounter for insertion of venous access port Z45.2 01/03/18 0317 <Electronically signed by Bo Madrid MD> Date Bo Madrid MD Cosigner Signature: Date (if applicable) CC: Sara Zarate OCCUPATIONAL HYGIENIST; Halley Khan MD ONCOLOGY VISIT REPORT Observed: 01/01/2018 Status: F Source: CLAUDIA 1:19 PM [facility] REPOSITORY [facility] [place] [address] OFFICE VISIT Date of Service: 01/01/18 1254 MR#: [id number] Acct: [id number] Name: GABBI ROLLE Rep #: [id number] : 1945 From: Halley Khan MD Age/Sex: 72/F Location: D Status: Signed - Problem List (1) Anemia Status: Chronic Qualifiers: Anemia type: iron deficiency Iron deficiency anemia type: unspecified iron deficiency Qualified Code(s): [...] Date of Service:: 01/01/18 - Chief Complaint Fatigue, anemia - History [...] Hemoptysis, Shortness of Breath, Wheezing Gastrointestinal:: Reports: Melena, Hematochezia - Intermittent, chronic, unchanged. Denies: Abdominal pain, Nausea, Vomiting, Diarrhea, Constipation Genitourinary: Reports: - - No vaginal bleeding. Denies: Hematuria, Flank pain Musculoskeletal:: Reports: Arthritis - [...] - Gross Laboratory Data: Laboratory Tests Erythropoietin 105.6 H (2.6-18.5) mIU/mL Laboratory Tests RBC Hgb [...] L Hct Iron Saturation 19.7 Ferritin 69 Assessment and Plan 72-year-old female with chronic recurring anemia most consistent with multiple factors includin. 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 Hobbs, to consider capsule study) despite oral iron supplementation (half-way) . Patient was transfused with packed red [...] a candidate for ESAT yet until iron deficiency is corrected and target iron [...] seen was her impression and plan discussed. Primary Care Provider: Sara Zarate Referring Provider: Halley Khan MD 01/01/18 7944 <Electronically signed by Halley Khan MD> Date Halley Khan MD Cosigner Signature: Date (if applicable) CC: [facility] W/DIFF, AUTOMATED Collected: 12/30/2017 Status: F Source: CLAUDIA 12:01 PM [facility] REPOSITORY Order Comment: Reason for Laboratory Test . TYPE CODE TESTS RESULT OUT OF RANGE REFERENCE UNITS LAB L100.1000 4.4-11.0 K/mm3 Normal WBC 7.1 LAB L100.1200 4.2-5.4 M/mm3 Low RBC 2.71 LAB L100.1300 12.0-15.0 g/dl Low HGB 8.2 LAB L100.1400 37-47 % Low HCT 27.7 LAB L100.1500 81-99 fL High MCV 102.2 LAB L100.1600 27.0-32.0 pg Normal MCH 30.3 LAB L100.1700 32-36 g/gl Low MCHC 29.6 LAB L100.1810 11.6-14.6 % High RDW CV 16.9 LAB L100.1820 35.1-43.9 fl High RDW SD 60.0 LAB L100.1900 150-450 K/mm3 Normal PLT 240 LAB L100.2000 6.2-12.0 fl Normal MPV 11.5 LAB L100.2100 47-70 % High NEUT% 81.2 LAB L100.2200 19-41 % Low LY% 11.3 LAB L100.2300 0-10 % Normal MONO% 5.4 LAB L100.2400 0-5 % Normal EO% 1.4 LAB L100.2500 0-1 % Normal BASO% 0.4 LAB L100.2550 0.0-0.9 % Normal IM GRAN % 0.300 Result Comment: IG% - Immature Granulocytes (promyelocytes, myelocytes and metamyelocytes) > 1% indicates that a LEFT SHIFT is Present. LAB L100.2620 2.0-7.7 X10 3/uL Normal Absolute Neut 5.7 LAB L100.2720 0.83-4.51 X10 3/ul Low Absolute Lymph 0.80 Performed By: #### L100.0100, L500.4050, L503.6030, L503.6550 #### [facility] [address] [place], [place], [id number] COMPREHENSIVE METABOLIC Collected: 12/30/2017 Status: F Source: CLAUDIA SAMANIEGO 12:01 PM [facility] REPOSITORY Order Comment: Reason for Laboratory Test . TYPE CODE TESTS RESULT OUT OF RANGE REFERENCE UNITS LAB L501.0100 74-106 mg/dL High GLU 108 Result Comment: Fasting Glucose result from 100 to 125 mg/dL suggests IMPAIRED HOMEOSTASIS per A.D.A. criteria. Please note revised GLUCOSE reference range effective 2017. LAB L501.1000 7-18 mg/dL High BUN 25 LAB L501.1100 0.55-1.02 mg/dL High CREAT,SERUM 1.47 Result Comment: The validity of the calculated GFR AND GFRAA in patients over 70 years has not been determined. Clinical correlation is essential. LAB L501.1110 >60 mL/min Low EST GFR 37 Result Comment: Non- GFR Calc LAB L501.1115 >60 mL/min Low EST GFR - AA 45 Result Comment: GFR Calc LAB L501.1255 ml/min Normal Estimated CRCL 32.65 LAB L501.1300 10-20 RATIO Normal BUN/CRE 17.0 LAB L501.1500 6.4-8. g/dL Normal 2 T PROT 7.0 LAB L501.1800 3.2-5. g/dL Normal 0 ALB 3.4 LAB L501.1950 2.2-4. g/dL Normal 2 GLOB 3.6 LAB L501.2000 0.9-2. RATIO Normal 4 A/G 0.9 LAB L501.2200 8.5-10 mg/dL Normal .1 CA 8.9 LAB L501.4100 15-37 U/L Normal AST 16 LAB L501.4305 45-117 U/L Normal ALK P 76 LAB L501.4405 13-56 U/L Normal ALT 17 LAB L501.4600 0.20-1 mg/dL Normal .00 T BILI 0.40 LAB L501.5300 136-14 mmol/L Normal 5 NA 140 LAB L501.5600 3.5-5. mmol/L Normal 1 K 4.4 LAB L501.5900 98-107 mmol/L High CL 109 LAB L501.6100 21.0-3 mmol/L Normal 2.0 CO2 25.0 LAB L501.6200 5-15 Normal GAP 6 Performed By: #### L100.0100, L500.4050, L503.6030, L503.6550 #### [facility] [facility] [address] [place], [place], [address] IRON+IRON BINDING Collected: 12/30/2017 Status: F Source: [place] CAPACITY 12:01 PM [facility] REPOSITORY Order Comment: Reason for Laboratory Test . TYPE CODE TESTS RESULT OUT OF RANGE REFERENCE UNITS LAB L503.6075 250-450 ug/dL TIBC Normal 391 LAB L503.6150 50-170 ug/dL IRON Normal 77 LAB L503.6250 15.0-55.0 % IRON Normal SATURATION 19.7 Performed By: #### L100.0100, L500.4050, L503.6030, L503.6550 #### [facility] [address] [place], [place], [address] FERRITIN Collected: 12/30/2017 Status: F Source: [place] 12:01 PM [facility] REPOSITORY Order Comment: Reason for Laboratory Test . TYPE CODE TESTS RESULT OUT OF RANGE REFERENCE UNITS LAB L503.6550 8-252 ng/mL Normal FERRITIN 69 Performed By: #### L100.0100, L500.4050, L503.6030, L503.6550 #### [facility] [address] [place], [place], [address] ERYTHROPOIETIN Collected: 12/30/2017 Status: F Source: [place] 12:01 PM [facility] REPOSITORY Order Comment: Reason for Laboratory Test . TYPE CODE TESTS RESULT OUT OF REFERENCE UNITS RANGE LAB L3100.1350 2.6-18.5 mIU/mL High ERYTHROP 105.6 [id number] Result Comment: Vince [employer] DxI 800 Immunoassay System Performed at: - [facility] [address] [id number] Laundry Laborer: Heron Almonte PhD, Phone: [phone] Performed By: #### L3100.1350 #### [facility] (refer to report for specific site) refer to report for address and phone number SPECIAL CXR Observed: 12/23/2017 Status: F Source: [place] (OBL/DECUB/A/L) 1:24 PM [facility] REPOSITORY [facility] Imaging Services [address] [place] [address] Special CXR (Obl/Decub/A/L) MR#: [id number] Acct: [id number] Name: GABBI ROLLE Rep #: [id number] : 1945 F 72 From: Geovanni Roper MD PCP: Sara Zarate NP Status: REG CLI Study: Special CXR (Obl/Decub/A/L) Date of Exam: 12/23/17 Exam# [id number] Ordering Dr: Carlos Nelson MD STUDY: X-RAY CHEST REASON FOR EXAM: Female, 72 years old. Dyspnea TECHNIQUE: Bilateral decubitus. COMPARISON: Radiographs of the same date.. FINDINGS: On the left there is a small layering pleural effusion. On the right no significant free-flowing fluid. Electronically Signed: Geovanni Roper MD at 16:00 EDT , Service support , RAD/Special CXR (Obl/Decub/A/L) CC: Sara Zarate NP; Carlos Nelson MD Propeller Mechanic: Signed SPECIAL CXR Observed: 12/23/2017 Status: F Source: [place] (OBL/DECUB/A/L) 1:24 PM [facility] REPOSITORY [facility] Imaging Services [address] [place] [address] Special CXR (Obl/Decub/A/L) MR#: [id number] Acct: [id number] Name: GABBI ROLLE Rep #: [id number] : 1945 F 72 From: Geovanni Roper MD PCP: Sara Zarate NP Status: REG CLI Study: Special CXR (Obl/Decub/A/L) Date of Exam: 12/23/17 Exam# [id number] Ordering Dr: Carlos Nelson MD STUDY: X-RAY CHEST REASON FOR EXAM: Female, 72 years old. Pleural effusion. TECHNIQUE: Bilateral decubitus. COMPARISON: Radiographs of the same date.. FINDINGS: On the left there is a small layering pleural effusion. On the right no significant free-flowing fluid. Electronically Signed: Geovanni Roper MD at 16:01 EDT , Service support , RAD/Special CXR (Obl/Decub/A/L) CC: Sara Zarate NP; Carlos Nelson MD Propeller Mechanic: Signed CHEST PA AND LATERAL Observed: 12/23/2017 Status: F Source: [place] 1:17 PM [facility] REPOSITORY [facility] Imaging Services [address] [place] [address] Chest PA and Lateral MR#: [id number] Acct: [id number] Name: GABBI ROLLE Rep #: [id number] : 1945 F 72 From: Geovanni Roper MD PCP: Sara Zarate NP Status: REG CLI Study: Chest PA and Lateral Date of Exam: 12/23/17 Exam# [id number] Ordering Dr: Carlos Nelson MD STUDY: X-RAY CHEST REASON FOR EXAM: Female, 72 years old. Dyspnea. Pleural effusion. TECHNIQUE: Frontal and lateral views of the chest. COMPARISON: 11/30/2017. FINDINGS: Normal lung volumes. Stable interstitial and bronchovascular prominence including peribronchial cuffing. Findings are consistent with congestion and interstitial edema. Atelectasis or infiltrate in the left lung base with small pleural effusion also stable. Mild to moderate cardiomegaly is stable. Degenerative changes throughout the spine with ankylosis. RAD/Chest PA and Lateral IMPRESSION: No significant change. Electronically Signed: Geovanni Roper MD at 16:00 EDT , Service support , CC: Sara Zarate NP; Carlos Nelson MD Propeller Mechanic: Signed 12 LEAD ELECTROCARDIOGRAM Observed: 12/12/2017 Status: F Source: [place] 1:58 PM [facility] REPOSITORY [facility] Cardiovascular Services [address] [place] [address] 12 Lead EKG 11/30/17 0804 MR#: [id number] Acct: [id number] Name: GABBI ROLLE Rep #: [id number] : 1945 72 From: Saleem Zavala MD Attending Dr: Zeus Vera DO Status: DIS IN Ordering Dr: Eric Fontaine MD Date: 11/30/17 Location: [facility] Sex: F C Admitted: 11/29/17 Test Reason : Blood Pressure : / mmHG Vent. Rate : 120 BPM Atrial Rate : 131 BPM P-R Int : 000 ms QRS Dur : 080 ms QT Int : 290 ms P-R-T Axes : 000 075 256 degrees QTc Int : [address] AND T wave abnormality, consider inferolateral ischemia or digitalis effect Abnormal ECG Confirmed by YVONNE BALDWIN, SALEEM ([id number]), graphics editor JONATHON ROLLE ([id number]) on 12/12/2017 1:58:01 PM Referred By: AARON Confirmed By:SALEEM ZAVALA MD 12/12/17 1358 Date Saleem Zavala MD CC: Sara Zarate NP; Eric Fontaine MD; Zeus Vera DO Signed 12 LEAD ELECTROCARDIOGRAM Observed: 12/08/2017 Status: F Source: [place] 8:58 PM [facility] REPOSITORY [facility] Cardi[facility] Services [address] [place] [address] 12 Lead EKG 12/01/17 0531 MR#: [id number] Acct: [id number] Name: GABBI ROLLE Rep #: [id number] : 1945 72 From: Champ Ann MD Attending Dr: Zeus Vera DO Status: DIS IN Ordering Dr: Bobbi Birmingham MD Date: 12/01/17 Location: [facility] Sex: F C Admitted: 11/29/17 Test Reason : MORNING EKG Blood Pressure : / mmHG Vent. Rate : 097 BPM Atrial Rate : 094 BPM P-R Int : 000 ms QRS Dur : 090 ms QT Int : 310 ms P-R-T Axes : 000 063 206 degrees QTc Int : [address] AND T wave abnormality, consider inferolateral ischemia Abnormal ECG When compared with ECG of 30-NOV-2017 08:04, MANUAL COMPARISON REQUIRED, DATA IS UNCONFIRMED Confirmed by CHAMP ANN ([id number]), graphics editor JONATHON ROLLE ([id number]) on 12/05/2017 3:04:22 PM Referred By: BHUPENDRA Confirmed By:CHMAP ANN 12/05/17 1504 Date Champ Ann MD CC: Sara Zarate NP; Zeus Vera DO; Bobbi Birmingham MD Signed ONCOLOGY VISIT REPORT Observed: 12/06/2017 Status: F Source: [place] 9:01 AM [facility] REPOSITORY [facility] [address] [place] [address] OFFICE VISIT Date of Service: 12/05/17 1029 MR#: [id number] Acct: [id number] Name: GABBI ROLLE Rep #: [id number] : 1945 From: Halley Khan MD Age/Sex: 72/F Location: [facility] Status: Signed - Problem List (1) Anemia Status: Chronic Qualifiers: Anemia type: iron deficiency Iron deficiency anemia type: unspecified iron deficiency Qualified Code(s): D50.9 - Iron deficiency anemia, unspecified (2) Iron deficiency anemia Status: Chronic Qualifiers: Iron deficiency anemia type: chronic blood loss Qualified Code(s): D50.0 - Iron deficiency anemia secondary to blood loss (chronic) (3) CRF (chronic renal failure) Status: Chronic - Date of Service Date of Service:: 12/05/17 - Chief Complaint Anemia follow-up following recent hospitalization - History [...] Date of Discharge: 12/02/17 - Past Medical/Social History Past Medical History [...] Oriented x3, No apparent distress, - - Orbitally obese ECOG 2 HEENT: Atraumatic, PERRLA, EOMI, Normocephalic Oropharynx:: Dry mucosa Neck:: Supple, Trachea midline. Negative for: JVD, bilateral Cardiac:: Regular rate, Normal S1, Normal S2, Irregular rate. Negative for: Murmur Lungs: [...] consider capsule study) despite oral iron supplementation (half-way) . Patient was transfused with packed red [...] ml IV X1 Primary Care Provider: Sara Zarate Referring Provider: Halley Khan MD 12/06/17 0901 <Electronically signed by aHlley Khan MD> Date Halley Khan MD Cosigner Signature: Date (if applicable) CC: sara zartae CBC W/DIFF, AUTOMATED Collected: 12/04/2017 Status: F Source: [place] 10:09 AM [facility] REPOSITORY Order Comment: Reason for Laboratory Test . TYPE CODE TESTS RESULT OUT OF RANGE REFERENCE UNITS LAB L100.1000 4.4-11.0 K/mm3 Normal WBC 6.9 LAB L100.1200 4.2-5.4 M/mm3 Low RBC 3.11 LAB L100.1300 12.0-15.0 g/dl Low HGB 9.2 LAB L100.1400 37-47 % Low HCT 31.4 LAB L100.1500 81-99 fL High MCV 101.0 LAB L100.1600 27.0-32.0 pg Normal MCH 29.6 LAB L100.1700 32-36 g/gl Low MCHC 29.3 LAB L100.1810 11.6-14.6 % High RDW CV 19.9 LAB L100.1820 35.1-43.9 fl High RDW SD 73.6 LAB L100.1900 150-450 K/mm3 Normal PLT 241 LAB L100.2000 6.2-12.0 fl Normal MPV 10.0 LAB L100.2100 47-70 % High NEUT% 85.2 LAB L100.2200 19-41 % Low LY% 8.2 LAB L100.2300 0-10 % Normal MONO% 5.0 LAB L100.2400 0-5 % Normal EO% 1.2 LAB L100.2500 0-1 % Normal BASO% 0.3 LAB L100.2550 0.0-0.9 % Normal IM GRAN % 0.100 Result Comment: IG% - Immature Granulocytes (promyelocytes, myelocytes and metamyelocytes) > 1% indicates that a LEFT SHIFT is Present. LAB L100.2620 2.0-7.7 X10 3/uL Normal Absolute Neut 5.8 LAB L100.2720 0.83-4.51 X10 3/ul Low Absolute Lymph 0.56 LAB L100.4500 SMEAR Normal COMMENT Result Comment: SLIDE SCANNED - LYMPHOPENIA, 1+ ANISO. Performed By: #### L100.0100, L100.9950 #### [facility] [address] [place], [place], [id number] RETIC PANEL Collected: 12/04/2017 Status: F Source: [place] 10:09 AM [facility] REPOSITORY Order Comment: Reason for Laboratory Test . TYPE CODE TESTS RESULT OUT OF RANGE REFERENCE UNITS LAB L101.0000 0.5-1.5 % High RETIC 5.76 LAB L101.0060 3.00-15.90 % IM Normal RET FRACTION 12.50 LAB L101.0090 30-35 pg Low RET-HE 24.2 LAB L101.0110 1.0-7.9 % Normal IPF 3.8 Result Comment: Low PLT + Low IPF suggest a bone marrow production disorder Low PLT + high IPF suggests peripheral destruction (e.g.ITP, TTP, HIT, DIC, autoimmune) or bone marrow recovery Trending of serial IPF measurements is recommended when evaluating for bone marrow respones Value above normal range indicates an increase in RBC cellular response from bone marrow. Performed By: #### L100.0100, L100.9950 #### [facility] [address] [place], [place], [id number] IRON+IRON BINDING Collected: 12/04/2017 Status: F Source: [facility] 10:09 AM [facility] REPOSITORY Order Comment: Reason for Laboratory Test . TYPE CODE TESTS RESULT OUT OF RANGE REFERENCE UNITS LAB L503.6075 250-450 ug/dL High TIBC 536 LAB L503.6150 50-170 ug/dL Normal IRON 56 Result Comment: Slight Hemolysis, Result may be falsely increased. LAB L503.6250 15.0-55.0 % IRON Low SATURATION 10.4 Performed By: #### L503.6030, L503.6550 #### [facility] [address] [place], [place], [address] FERRITIN Collected: 12/04/2017 Status: F Source: [place] 10:09 AM [facility] REPOSITORY Order Comment: Reason for Laboratory Test . TYPE CODE TESTS RESULT OUT OF RANGE REFERENCE UNITS LAB L503.6550 8-252 ng/mL Normal FERRITIN 43 Performed By: #### L503.6030, L503.6550 #### [facility] [address] [place], [place], [address] ERYTHROPOIETIN Collected: 12/04/2017 Status: F Source: [place] 10:09 AM [facility] REPOSITORY Order Comment: Reason for Laboratory Test . TYPE CODE TESTS RESULT OUT OF REFERENCE UNITS RANGE LAB L3100.1350 2.6-18.5 mIU/mL High ERYTHROP 51.6 [id number] Result Comment: [employer] DxI 800 Immunoassay System Performed at: [facility] [address] [id number] Laundry Laborer: Heron Almonte PhD, Phone: [phone] Performed By: #### L3100.1350 #### [facility] (refer to report for specific site) refer to report for address and phone number 12 LEAD ELECTROCARDIOGRAM Observed: 12/03/2017 Status: F Source: [place] 1:59 PM [facility] REPOSITORY [facility] Cardiovascular Services [address] [place] [address] 12 Lead EKG 11/29/172056 MR#: [id number] Acct: [id number] Name: GABBI ROLLE Rep #: [id number] : 1945 72 From: Niraj Raymundo MD Attending Dr: Zeus Vera DO Status: DIS IN Ordering Dr: Gabi Gardner MD Date: 11/29/17 Location: [facility] Sex: F C Admitted: 11/29/17 Test Reason : GI BLEED Blood Pressure : / mmHG Vent. Rate : 095 BPM Atrial Rate : 070 BPM P-R Int : 000 ms QRS Dur : 088 ms QT Int : 352 ms P-R-T Axes : 000 053 216 degrees QTc Int : [address] AND T wave abnormality, consider lateral ischemia Abnormal ECG Confirmed by NIRAJ RAYMUNDO MD ([id number]), graphics editor JONATHON ROLLE ([id number]) on 12/03/2017 1:59:50 PM Referred By: Confirmed By:NIRAJ RAYMUNDO MD 12/03/17 1359 Date Niraj Raymundo MD CC: Sara Zarate NP; Gabi Gardner MD; Zeus Vera DO Signed DISCHARGE SUMMARY Observed: 12/02/2017 Status: F Source: [place] 2:14 PM [facility] REPOSITORY [facility] Medical Records Department [address] [place] [address] Discharge Summary 12/02/17 1217 MR#: [id number] Acct: [id number] Name: GABBI ROLLE Rep #: [id number] : 1945 72 From: Billie BOYER PCP: Sara Zarate NP Status: DIS IN Y Location: [place] [address] <Billie Segovia - Last Filed: 12/02/17 12:32> Discharge Date and Diagnosis - Problem List Patient Problems: Active and Suspected Problems (Last Reviewed 11/04/17 @ 12:55 by Shirley Mcpherson) Anemia in chronic kidney disease (CKD) (Acute) GI bleed (Acute) Date of Admission: 11/29/17 Date of Discharge: 12/02/17 - Primary Discharge Diagnosis Active and Suspected Problems (Last Reviewed 11/04/17 @ 12:55 by Shirley Mcpherson) 1. Acute on chronic anemia secondary to acute on chronic GI blood loss with underlying iron deficiency anemia 2. Paroxysmal atrial fibrillation with RVR 3. Acute kidney injury on chronic kidney disease stage III 4. Acute on chronic diastolic CHF - Secondary Discharge Diagnosis Chronic Problems (Last Reviewed 11/04/17 @ 12:55 by Shirley Mcpherson) CKD (chronic kidney disease), stage III (Chronic) Atherosclerotic heart disease of [place] coro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 pectoris (Chronic) [facility]: 07/30/2006; 04/10/17 Chronic atrial fibrillation (Chronic) Hyperkalemia (Chronic) HLD (hyperlipidemia) (Chronic) HTN (hypertension) (Chronic) Non-ST elevation (NSTEMI) myocardial infarction (Chronic) Nonrheumatic aortic (valve) stenosis (Chronic) Nonrheumatic mitral (valve) insufficiency (Chronic) Nonrheumatic tricuspid (valve) insufficiency (Chronic) Other secondary pulmonary hypertension (Chronic) SOB (shortness of breath) (Chronic) NSTEMI (non-ST elevated myocardial infarction) (Chronic) Chronic atrial fibrillation (Chronic) Hypertension (Chronic) Hyperlipidemia (Chronic) Type 2 diabetes mellitus (Chronic) CAD (coronary artery disease) (Chronic) Anemia (Chronic) CRF (chronic renal failure) (Chronic) Iron deficiency anemia (Chronic) Diverticular disease (Chronic) Morbid obesity (Chronic) Hospital Course and Treatment Imaging Results: Diagnostic Data Chest X-Ray 11/30/17 05:55 IMPRESSION: Left lower lung infiltrate or edema and pleural effusion. Cardiac enlargement. Electronically Signed: Amador Guo MD at 8:20 EDT , Service support , Leslie Peres- Oncology Dr. Birmingham- Surgery Operations: None Procedures: Colonoscopy Summary of Care Provided: Patient is a 72-year-old female admitted 11/29/17 due to weakness, lightheadedness. She has a past medical history of iron deficiency anemia, chronic kidney disease stage III, type 2 diabetes mellitus, hypertension, hyperlipidemia, obstructive sleep apnea, morbid obesity, bilateral lower extremity lymphedema, chronic atrial fibrillation on Coumadin therapy, history of NSTEMI, pulmonary hypertension, history of GI bleed. Patient had a C scope December [address] Hobbs due to GI bleed which showed extensive diverticular disease to the sigmoid area and some patchy erythema in the right colon. Patient's Coumadin was discontinued at that time and later restarted. 1. Acute on chronic anemia secondary to acute on chronic GI blood loss-underlying history of iron deficiency anemia. Dr. Birmingham consulted. Coumadin held during admission. Patient received 3 units PRBC for hemoglobin 6.8. She received dose of vitamin K in the emergency room as well. Patient underwent colonoscopy with Dr. Birmingham which showed no source of GI bleed, no blood in GI tract. Diverticulosis and hemorrhoidal disease was noted. Patient was placed back on coumdin. Continue iron supplementation. Patient will continue outpatient follow-up with Dr. Hobbs and Dr. Valdez. H AND H in 1 and 2 weeks with further management by hemoncology and PCP. 2. Paroxysmal A. fib with RVR-heart rate controlled. Placed on Cardizem drip during n.p.o. status. Home metoprolol regimen resumed and heart rate controlled. Patient will continue Coumadin at discharge. 3. Acute on chronic diastolic CHF-suspect secondary to #1. Echocardiogram from 2014 showed an EF of 55%, mild to moderate mitral valve insufficiency, pulmonary artery systolic pressure 55 mmHg. Chest x-ray showed left lower lung infiltrate/edema. BNP 217. Patient received IV Lasix 1. 4. Acute kidney injury on chronic kidney disease stage III- follows with Dr. Mccurdy. Continue outpatient follow-up. Creat stable. 5. Type 2 diabetes mellitus-continue home oral regimen. 6. Hyperlipidemia-continue statin. 7. Hypertension-stable, continue current regimen. 8. CAD/History of NSTEMI-normal stress August 2016. Cath in 2005 with no significant stenosis. 9. Obstructive sleep apnea-continue CPAP 10. Chronic bilateral lower extremity lymphedema-Marei wrap bilateral lower extremities. 11. Morbid obesity-BMI 58.4. Encourage diet and lifestyle modifications. General: Alert, Oriented x3, Cooperative HEENT: Atraumatic, PERRLA, EOMI, Normocephalic Oral: Dry Mucosa Neck: Supple, No JVD, Negative Carotid Bruits Lungs: Clear to auscultation, Diminished Cardiovascular: Tachycardic, - - A.fib Abdomen: Bowel Sounds Present, Soft, Non Tender, Non-Distended, Obese Extremities: No clubbing, No cyanosis, Edema - BLLE Skin: No rashes, No breakdown Musculoskeletal: No Tenderness to Palpation of Joints or Extremities Neurological: Cranial nerves II-XII grossly intact, Neuro grossly intact Psych/Mental Status: Normal Affect, Appropriate Patient seen and examined prior to discharge. Physical assessment as noted above. Patient denies dizziness, lightheadedness. Denies chest pain, shortness of breath. Stable for discharge home with close follow-up with hematology and other recognitions as noted above. This patient was seen by ROSALIND Nolen under the supervision of Dr. Vera. Discharge Diet: Low fat/ Low Cholesterol, Carb Control Diet Discharge Activity: Return to Normal Activity Call your doctor if you observe: Shortness of breath, Dizziness, Fainting spells, Chest pain, - - Increase in blood per rectum Home Medications: Medications to take at Discharge Amoxicillin 2,000 mg PO X1 PRN 11/18/17 Ascorbic Acid [Vitamin C] 1,000 mg PO BID 11/18/17 Budesonide/Formoterol Fumarate [Symbicort 160-4.5 Mcg Inhaler] 2 puff IH BID 11/18/17 Calcium Citrate 500 mg PO TID 11/18/17 Cholecalciferol (Vitamin D3) [Vitamin D3] 4,000 unit PO DAILY 11/18/17 Febuxostat [Uloric] 80 mg PO DAILY 11/18/17 Furosemide [Lasix] 20 mg PO DAILY 11/18/17 Linagliptin [Tradjenta] 5 mg PO DAILY PRN 11/18/17 Lisinopril [Zestril] 10 mg PO DAILY 11/18/17 Magnesium Oxide [Magnesium] 250 mg PO BID 11/18/17 Metoprolol Tartrate [Lopressor (beta long)] 100 mg PO BID 11/18/17 Multivitamin [Daily Multiple Vitamin] 1 each PO DAILY 11/18/17 Pravastatin Sodium 80 mg PO QHS 11/18/17 Ropinirole HCl [Requip] 0.25 mg PO QHS 11/18/17 Sildenafil Citrate [Revatio] 20 mg PO TID 11/18/17 Ubidecarenone [Coenzyme Q-10] 100 mg PO DAILY 11/18/17 Warfarin [Coumadin] 5 mg PO DAILY 11/18/17 hydrALAZINE [Apresoline] 25 mg PO TID 11/18/17 Ferrous Sulfate 325 mg PO BID 11/29/17 Primary Care Physician: Sara Zarate [Primary Care Provider] - Please follow up with your Primary Care Physician in: 1 Week Please Follow Up With: Halley Khan MD When: 2 Days, Please schedule prior to DC Please Follow Up With: Heron Hobbs MD When: 1-2 Weeks Please Follow Up With: Niraj Raymundo MD When: As scheduled Please Follow Up With: Natalia Mccurdy DO When: As scheduled Disposition: Home Minutes spent on discharge:: 35 Patient Condition:: Stable Medical Necessity - Tobacco Use Smoking Status: Never smoker Tobacco Use: Non-smoker Meaningful Use Info Meaningful Use Diagnoses (Choose all that apply): CHF - CHF MARIE/ARB ordered at discharge?: Yes Documented LVEF (%): 55 <Zeus Vera - Last Filed: 12/02/17 14:14> Discharge Date and Diagnosis - Secondary Discharge Diagnosis Chronic Problems (Last Reviewed 11/04/17 @ 12:55 by Shirley Mcpherson) CKD (chronic kidney disease), stage III (Chronic) Atherosclerotic heart disease of [place] coro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 pectoris (Chronic) [facility]: 07/30/2006; 04/10/17 Chronic atrial fibrillation (Chronic) Hyperkalemia (Chronic) HLD (hyperlipidemia) (Chronic) HTN (hypertension) (Chronic) Non-ST elevation (NSTEMI) myocardial infarction (Chronic) Nonrheumatic aortic (valve) stenosis (Chronic) Nonrheumatic mitral (valve) insufficiency (Chronic) Nonrheumatic tricuspid (valve) insufficiency (Chronic) Other secondary pulmonary hypertension (Chronic) SOB (shortness of breath) (Chronic) NSTEMI (non-ST elevated myocardial infarction) (Chronic) Chronic atrial fibrillation (Chronic) Hypertension (Chronic) Hyperlipidemia (Chronic) Type 2 diabetes mellitus (Chronic) CAD (coronary artery disease) (Chronic) Anemia (Chronic) CRF (chronic renal failure) (Chronic) Iron deficiency anemia (Chronic) Diverticular disease (Chronic) Morbid obesity (Chronic) Hospital Course and Treatment Operations: None Procedures: Colonoscopy, - - EGD Summary of Care Provided: Patient seen and examined independently. I agree with the above note by the OCCUPATIONAL HYGIENIST The patient is a 72 year old F presents with weakness. Patient was found to be anemic. Patient did drop as low as 6.8. Patient did receive a total of 3 units of packed red blood cells. Patient underwent an EGD and colonoscopy that were unremarkable. Patient will resumed back on her Coumadin. Patient's INR upon arrival was 2.4. Patient will have serial blood counts in the coming weeks. Long-term concern is if patient may need to be taken off of Coumadin until this anemia issue has been further qualified or has remained stable. But in the meantime, patient will continue with Coumadin. Patient is on Coumadin for atrial fibrillation. [] Discharge Diet: Low fat/ Low Cholesterol, Carb Control Diet Discharge Activity: Return to Normal Activity Call your doctor if you observe: Shortness of breath, Dizziness, Fainting spells, Chest pain, - Disposition: Home Minutes spent on discharge:: 35 Patient Condition:: Stable Medical Necessity - Tobacco Use Tobacco Use: Non-smoker Meaningful Use Info Meaningful Use Diagnoses (Choose all that apply): CHF - CHF MARIE/ARB ordered at discharge?: Yes Documented LVEF (%): 55 Code Visit Inpatient E AND M: 50200 Disch Hosp 12/02/17 1233 <Electronically signed by Billie Segovia NP-C> Date Billie Segovia NP-C 12/02/17 1414<Electronically signed by Zeus Vera DO> Cosigner Signature (if applicable): Date Zeus Vera DO CC: Sara Zarate; Sara Zarate NP; DANIELE-Cassie Segovia; Zeus Vera DO Signed DISCHARGE INSTRUCTION Observed: 12/02/2017 Status: F Source: [place] 12:17 PM [facility] REPOSITORY [facility] Medical Records Department [address] [place] [address] Instructions for Home/Discharge Instructions 12/02/17 1209 MR#: [id number] Acct: [id number] Name: GABBI ROLLE Rep #: [id number] : 1945 72 From: Billie Segovia NP-C PCP: Sara Zarate NP Status: ADM IN - Discharge Diagnoses Current Active Problems: Current Active and Chronic Problems (Last Reviewed 11/04/17 @ 12:55 by Shirley Mcpherson) CKD (chronic kidney disease), stage III (Chronic) Acute kidney injury (Acute) You will use the following diet at home:: Calorie/Carbohydrate Controlled (specify 1200, 1400, etc), Cardiac Discharge Activity: Return to Normal Activity Call your doctor if you observe: Shortness of breath, Dizziness, Fainting spells, Chest pain, - - Increase in blood per rectum Additional Instructions: Continue to monitor INR at home and report findings to PCP. Allergies/Adverse Reactions: Allergies No Known Allergies Allergy (Verified 11/30/17 01:15) Medications to take at Discharge Amoxicillin 2,000 mg PO X1 PRN 11/18/17 Ascorbic Acid [Vitamin C] 1,000 mg PO BID 11/18/17 Budesonide/Formoterol Fumarate [Symbicort 160-4.5 Mcg Inhaler] 2 puff IH BID 11/18/17 Calcium Citrate 500 mg PO TID 11/18/17 Cholecalciferol (Vitamin D3) [Vitamin D3] 4,000 unit PO DAILY 11/18/17 Febuxostat [Uloric] 80 mg PO DAILY 11/18/17 Furosemide [Lasix] 20 mg PO DAILY 11/18/17 Linagliptin [Tradjenta] 5 mg PO DAILY PRN 11/18/17 Lisinopril [Zestril] 10 mg PO DAILY 11/18/17 Magnesium Oxide [Magnesium] 250 mg PO BID 11/18/17 Metoprolol Tartrate [Lopressor (beta long)] 100 mg PO BID 11/18/17 Multivitamin [Daily Multiple Vitamin] 1 each PO DAILY 11/18/17 Pravastatin Sodium 80 mg PO QHS 11/18/17 Ropinirole HCl [Requip] 0.25 mg PO QHS 11/18/17 Sildenafil Citrate [Revatio] 20 mg PO TID 11/18/17 Ubidecarenone [Coenzyme Q-10] 100 mg PO DAILY 11/18/17 Warfarin [Coumadin] 5 mg PO DAILY 11/18/17 hydrALAZINE [Apresoline] 25 mg PO TID 11/18/17 Ferrous Sulfate 325 mg PO BID 11/29/17 Primary Care Physician: Sara Zarate [Primary Care Provider] - Please follow up with your Primary Care Physician in: 1 Week Please Follow Up With: Halley Khan MD When: 2 Days, Please schedule prior to DC Please Follow Up With: Heron Hobbs MD When: 1-2 Weeks Please Follow Up With: Niraj Raymundo MD When: As scheduled Please Follow Up With: Natalia Mccurdy DO When: As scheduled Proposed Discharge Date: 12/02/17 12/02/17 1217 <Electronically signed by Billie BOYER> Date Billie BOYER CC: Sara Zarate NP; Bobbi Birmingham MD; Leslie Peres NP BEDSIDE GLUCOSE Collected: 12/02/2017 Status: F Source: [place] 11:28 AM [facility] REPOSITORY TYPE CODE TESTS RESULT OUT OF REFERENCE UNITS RANGE LAB L501.080 70-110 mg/dL High BEDSIDE GLU 119 Result Comment: MANAGEMENT OF PATIENT CARE PER NURSING PROTOCOL Performed By: #### L501.080 #### [facility] Laboratory Point of Care [address] [place] [address] CONSULTATION Observed: 12/02/2017 Status: F Source: [place] 11:00 AM [facility] REPOSITORY [facility] Medical Records Department [address] [place] [address] Consultation 11/30/17 1527 MR#: [id number] Acct: [id number] Name: GABBI ROLLE Rep #: [id number] : [id number] 72 From: Leslie BOYER PCP: Sara Zarate NP Status: ADM IN Location: [place] [address] Consult Referring Physician: Dr. Nohemi Walker Subjective Date of Service:: 11/30/17 Chief Complaint: Anemia, acute GI bleed History of Present Illness: Patient is a 72-year-old female with a past medical history notable for morbid obesity, diabetes, chronic renal failure, hypertension, chronic atrial fibrillation on long-term anticoagulation and chronic GI blood loss attributed to diverticular disease (most recent colonoscopy was in 2017 under the care of Dr. Hobbs. Findings of which were positive for extensive diverticular disease - biopsy of right colon was negative - (concern for ischemic colitis). There had been occasions when her Coumadin anticoagulation had to be held due to increasing GI blood loss despite the fact that she is at an increased risk for cerebrovascular events from chronic atrial fibrillation Receives Venofer intermittently for management of chronic, recurrent anemia attributable to iron deficiency r/t chronic GI blood loss. Found to have Hgb 7.1 as an outpatient 11/29/17 and subsequently presented to [facility] ED with c/o hematochezia. Stool Guaiac positive. Coumadin held, given PO vitamin K. Given 1 unit PRBCs and has been evaluated by Dr. Birmingham who is considering colonoscopy/EGD tomorrow. Upon assessment, described episode of hematochezia approx 3 hours ago. Reports she had been taking PO ferrous sulfate BID with vitamin C as advised and tolerates well. Last dose of Venofer given 11/14/17. Specifically denies CP, SOB while on O2, abd pain, diarrhea and any other episodes of maggie bleeding. Past Medical History: Chronic Problems (Last Reviewed 11/04/17 @ 12:55 by Shirley Mcpherson) CKD (chronic kidney disease), stage III (Chronic) Atherosclerotic heart disease of [place] coro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 pectoris (Chronic) C: 07/30/2006; 04/10/17 Chronic atrial fibrillation (Chronic) Hyperkalemia (Chronic) HLD (hyperlipidemia) (Chronic) HTN (hypertension) (Chronic) Non-ST elevation (NSTEMI) myocardial infarction (Chronic) Nonrheumatic aortic (valve) stenosis (Chronic) Nonrheumatic mitral (valve) insufficiency (Chronic) Nonrheumatic tricuspid (valve) insufficiency (Chronic) Other secondary pulmonary hypertension (Chronic) SOB (shortness of breath) (Chronic) NSTEMI (non-ST elevated myocardial infarction) (Chronic) Chronic atrial fibrillation (Chronic) Hypertension (Chronic) Hyperlipidemia (Chronic) Type 2 diabetes mellitus (Chronic) CAD (coronary artery disease) (Chronic) Anemia (Chronic) CRF (chronic renal failure) (Chronic) Iron deficiency anemia (Chronic) Diverticular disease (Chronic) Morbid obesity (Chronic) Past Medical/Surgical History: Past Medical History - Most Recent Inpatient Visit Past Medical History Start: 11/30/17 00:37 Text: Status: Complete Freq: ONCE Protocol: Document 11/30/17 00:37 AMS (Rec: 11/30/17 00:42 AMS [id number]) BMI Required to complete [facility] What is Patient's BMI 58.4 Past Medical History Unable History Recalled No Query Text:Pt Unable/Family Not Present Neurologic Medical History Hx Stroke/TIA No Hx Dementia/Alzheimer's No Hx Parkinson's Disease No Hx Seizures No Hx Multiple Sclerosis No Hx Migraines No Cardiac Medical History VTE Present on Admission No Hx of Deep Vein Thrombosis/VTE/PE No Hx Hypertension Yes Hx Chest Pain/Angina No Hx Heart Attack Yes: 11/2016 Hx Cardiac Surgery/Stents/Etc. No Hx Heart Failure No Hx Pacemaker/AICD No Hx Irregular Heartbeat and/or Afib Yes Hx Anticoagulant Therapy Yes: coumadin Query Text:(Coumadin, Aspirin, Plavix, Xarelto, etc.) Hx Pain in Legs when Walking/Leg Cramps No Respiratory Medical History Hx COPD No Hx Emphysema No Hx Smoking No Smoking Status Never smoker Tobacco Use Non-smoker Hx Tobacco Use in last 12 months No Hx Sleep Apnea Yes: cpap CPAP Yes BIPAP No STOP Results Positive GI Medical History Hx Ulcer No Hx Hepatitis No Hx Cirrhosis No Hx GI Bleed No Hx Unplanned Weight Loss No Genitourinary Medical History Indwelling Catheter in Place on Arrival/ No Admission Hx Renal Disease Yes: low renal function Hx Dialysis No Musculoskeletal History Hx Arthritis No Hx Rheumatoid Arthritis No Endocrine Medical History Hx Diabetes Yes Hx Thyroid Disease No Hematologic Medical History Hx of Blood Transfusion Yes Hx of Transfusion in last 3 Months No Ever experience any problems with No transfusion(s)? Hx of Preganancy in last 3 Months No Nurse Filling Out Transfusion AND ASELF Questions: Date: 11/30/17 Time: 00:41 Psycho/Social Medical History Hx Depression No Hx Anxiety No Hx Behavior Disorder No Hx Alcohol Use No Hx Substance Use No Other Medical History Hx Blood Disorders No Hx Anemia Yes Hx Cancer No Hx Drug Resistant Organism No Wound/Pressure Injury Present on Arrival No /Admission Query Text:If yes, chart assessment in Shift/Clinical Findings Central Line/PICC/VAD Present on Arrival No /Admission Antibiotics within last 7 days? No Methicillin Resistant Staphylococcus aureus Screening Active MRSA No Risk for Readmission Number of Risk Factors 4 At Risk for Readmission Patient is At Risk For Readmission Patient is eligible for Call Back Y Past Medical History (Last Reviewed 11/04/17 @ 12:55 by Shirley Mcpherson) Atherosclerotic heart disease of [place] coro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 pectoris (Chronic) Chronic [...] Sepsis (Acute) Sepsis secondary to UTI (Acute) Past Surgical History (Last Reviewed 11/04/17 @ 12:55 by Shirley Mcpherson) History of appendectomy (Acute) History of hysterectomy (Acute) Status post right foot surgery (Acute) History of left heart catheterization (LHC) (Resolved) Maternal Family History: Family History (Last Reviewed 11/04/17 @ 12:56 by Shirley Mcpherson) Mother Uterine cancer Hypertension Father Heart disease Diabetes CAD (coronary artery disease) Hypertension Family History: - - Mother with a history of hypertension, uterine cancer. Paternal Family History: Family History (Last Reviewed 11/04/17 @ 12:56 by Shirley Mcpherson) Mother Uterine cancer Hypertension Father Heart disease Diabetes CAD (coronary artery disease) Hypertension Family History: - - Father with a history of coronary artery disease, diabetes, heart disease, hypertension. - Social History Lives: Spouse/ Significant Other Smoking Status: Never smoker Tobacco Use: Non-smoker Alcohol: None Drugs: None Allergies/Adverse Reactions: Allergy/AdvReac Type Severity Reaction Status Date / Time No Known Allergies Allergy Verified 11/30/17 01:15 Home Medications Medication Instructions Recorded Amoxicillin 2,000 mg PO X1 PRN 11/18/17 Review of Systems Constitutional:: Reports: Weakness, Fatigue. Denies: Fever, Sweats, Weight loss, Appetite change, Chills Cardiovascular:: Reports: Dyspnea on exertion. Denies: Chest pain, Palpitations, Orthopnea, PND, Shortness of breath Respiratory: Reports: Shortness of breath upon exertion. Denies: Cough, Hemoptysis, Wheezing Gastrointestinal:: Reports: Hematochezia. Denies: Abdominal pain, Nausea, Vomiting, Diarrhea, Constipation Genitourinary: Denies: Dysuria, Hematuria, 15, Flank pain Skin: Denies: Rash, Skin Changes, Wounds Neurological:: Denies: Headache, Dizziness, Numbness, Tingling, Visual changes, Tinnitus, Hearing loss Psychiatric: Denies: Anxiety, Depression, Homicidal Ideations, Suicidal Ideations Vital Signs Height 5 ft 7 in Weight: 373 lb 0.354 oz - Physical Exam General: Alert, Oriented x3, No apparent distress HEENT: Atraumatic, Normocephalic Oropharynx:: Dry mucosa Neck:: Supple, Trachea midline. Negative for: JVD, bilateral Cardiac:: Regular rate, Regular rhythm Lungs: Clear to auscultation, Wheezes - faint expiratory bilat, Excusion symmetrical. Negative for: Rhonchi, Tachypneic, Increased respiratory effort Abdomen:: Bowel sounds x 4, Soft, Non-tender, Non-distended. Negative for: Hepatosplenomegaly - Difficult to discern d/t large body habitus Extremities:: Edema - BLE, wearing SCDS. Negative for: Cyanosis, Calf tenderness Neurological: Neuro grossly intact Skin:: Negative for: Lesions, Rash, Petechiae, Ecchymosis Psychiatric:: Appropriate affect, Euthymic Lymphatics:: Negative for: Cervical lymphadenopathy, Supraclavicular lymphadenopathy Laboratory Data: Laboratory Tests Hgb 7.6 L (12.0-15.0) g/dl Hct 25.8 L (37-47) % Hgb 7.3 L (12.0-15.0) g/dl Diagnostic Data: Diagnostic Data Chest X-Ray 11/30/17 05:55 IMPRESSION: Left lower lung infiltrate or edema and pleural effusion. Cardiac enlargement. Electronically Signed: Amador Guo MD at 8:20 EDT , Service support , Assessment and Plan Patient is a 72-year-old female with a past medical history significant for morbid obesity, diabetes, chronic renal failure, hypertension, chronic atrial fibrillation on long-term anticoagulation and chronic GI blood loss attributed to diverticular disease (most recent colonoscopy was in 2017 under the care of Dr. Hobbs. Findings of which were positive for extensive diverticular disease - biopsy of right colon was negative - (concern for ischemic colitis). There had been occasions when her Coumadin anticoagulation had to be held due to increasing GI blood loss despite the fact that she is at an increased risk for cerebrovascular events from chronic atrial fibrillation Receives Venofer intermittently for management of chronic, recurrent anemia attributable to iron deficiency r/t chronic GI blood loss. Found to have Hgb 7.1 as an outpatient 11/29/17 and subsequently presented to [facility] ED with c/o hematochezia. Stool Guaiac positive. Coumadin held, given PO vitamin K 1. Anemia secondary to acute on chronic blood loss from GI tract- Experiencing hematochezia, being considered for colonoscopy/EGD per Dr. Birmingham. Most recent H/H showed 7.6/25.8, modestly improved from admission subsequent to 1 unit PRBCs. Given the context of her cardiac disease and patient remains symptomatic by way of dyspnea, can consider administration of 1 additional unit PRBCS if Hgb remains < 8 with next H/H due at 1800. 2. DVT prophylaxis: SCDs, chemoprophylaxis contraindicated d/t presence of bleed. Leslie Peres, MSN, CORRECTIONAL SUPERVISOR-C, AOCNP Medications: Prescriptions This Visit Medication Instructions Recorded Ferrous Sulfate 325 mg PO BID 11/29/17 Medications Added to Medication List This Visit Dextrose 5%-Water 100 ml Med 11/30/17 12:00 Active Primary Care Provider: Sara Zarate Referring Provider: 12/02/17 1100 <Electronically signed by Leslie GARCIAC> Date Leslie BOYER Cosigner Signature (if applicable): Date CC: Sara Zarate NP; Bobbi Birmingham MD; Leslie Peres NP Signed BEDSIDE GLUCOSE Collected: 12/02/2017 Status: F Source: [place] 6:45 AM [facility] REPOSITORY TYPE CODE TESTS RESULT OUT OF REFERENCE UNITS RANGE LAB L501.080 70-110 mg/dL High BEDSIDE GLU 117 Result Comment: MANAGEMENT OF PATIENT CARE PER NURSING PROTOCOL Performed By: #### L501.080 #### [facility] Laboratory Point of Care [address] [place], [place] [address] BASIC METABOLIC Collected: 12/02/2017 Status: F Source: [place] PROFILE (BMP) 5:45 AM [facility] REPOSITORY TYPE CODE TESTS RESULT OUT OF RANGE REFERENCE UNITS LAB L501.0100 74-106 mg/dL Normal GLU 94 Result Comment: Please note revised GLUCOSE reference range effective 2017. LAB L501.1000 7-18 mg/dL High BUN 26 LAB L501.1100 0.55-1.02 mg/dL High CREAT,SERUM 1.82 Result Comment: The validity of the calculated GFR AND GFRAA in patients over 70 years has not been determined. Clinical correlation is essential. LAB L501.1110 >60 mL/min Low EST GFR 29 Result Comment: Non- GFR Calc LAB L501.1115 >60 mL/min Low EST GFR - AA 35 Result Comment: GFR Calc LAB L501.1255 ml/min Normal Estimated CRCL 26.37 LAB L501.1300 10-20 RATIO Normal BUN/CRE 14.3 LAB L501.2200 8.5-10 mg/dL Low .1 CA 8.2 LAB L501.5300 136-14 mmol/L Normal 5 NA 143 LAB L501.5600 3.5-5. mmol/L Normal 1 K 4.4 LAB L501.5900 98-107 mmol/L High CL 114 LAB L501.6100 21.0-3 mmol/L Normal 2.0 CO2 21.0 LAB L501.6200 5-15 Normal GAP 8 Performed By: #### L500.2500 #### [facility] [address] [place], [place], [address] CBC-COMPLETE BLOOD CNT Collected: 12/02/2017 Status: F Source: [place] NO DIFF 5:45 AM [facility] REPOSITORY TYPE CODE TESTS RESULT OUT OF RANGE REFERENCE UNITS LAB L100.1000 4.4-11.0 K/mm3 Normal WBC 6.5 LAB L100.1200 4.2-5.4 M/mm3 Low RBC 2.64 LAB L100.1300 12.0-15.0 g/dl Low HGB 7.9 LAB L100.1400 37-47 % Low HCT 26.7 LAB L100.1500 81-99 fL High MCV 101.1 LAB L100.1600 27.0-32.0 pg Normal MCH 29.9 LAB L100.1700 32-36 g/gl Low MCHC 29.6 LAB L100.1810 11.6-14.6 % High RDW CV 21.6 LAB L100.1820 35.1-43.9 fl High RDW SD 75.0 LAB L100.1900 150-450 K/mm3 Normal PLT 255 LAB L100.2000 6.2-12.0 fl Normal MPV 10.7 Performed By: #### L100.0500, L100.4500 #### [facility] [address] [place], [address] DIFFERENTIAL COMMENT Collected: 12/02/2017 Status: F Source: [place] 5:45 AM [facility] REPOSITORY TYPE CODE TESTS RESULT OUT OF RANGE REFERENCE UNITS LAB L100.4500 Normal SMEAR COMMENT COMMENT Result Comment: SLIDE SCANNED - 1+ ANISO NOTED. Performed By: #### L100.0500, L100.4500 #### [facility] [address] [facility] [place], [address] BEDSIDE GLUCOSE Collected: 12/01/2017 Status: F Source: [place] 9:43 PM [facility] REPOSITORY TYPE CODE TESTS RESULT OUT OF REFERENCE UNITS RANGE LAB L501.080 70-110 mg/dL High BEDSIDE GLU 138 Result Comment: MANAGEMENT OF PATIENT CARE PER NURSING PROTOCOL Performed By: #### L501.080 #### [facility] Laboratory Point of Care [address] [place] [address] OPERATIVE REPORT Observed: 12/01/2017 Status: F Source: [place] 8:01 PM [facility] REPOSITORY [facility] Medical Records Department [address] [place] [address] Operative Report 12/01/17 1525 MR#: [id number] Acct: [id number] Name: GABBI ROLLE Rep #: [id number] : 1945 72 From: Bobbi Birmingahm MD PCP: Sara Zarate NP Status: ADM IN Y Location: [place] [address]-1 Report of Operation Date of Procedure: 12/01/17 Pre-Operative Diagnosis: anemia, rule out GI bleed, rectal bleeding Post-Operative Diagnosis: no source of GI bleed with active bleeding noted - no blood in GI tract noted, diverticulosis, hemorrhoidal disease Surgery/Procedure Performed:: esophagogastroduodenoscopy and colonoscopy Description of Surgical Findings:: no ulcers/masses noted on EGD, no active bleeding lesions noted in colon - diverticulosis and hemorrhoids noted - but no site of bleeding Type of Anesthesia:: MAC Anesthesiologist: Peewee Akhtar Specimen's removed: none Estimated Blood Loss (mL): none Fluids Replaced: see anesthesia note Description of Procedure: After informed consent was given, the patient was brought to the endoscopy suite and placed in the upright sitting position. Appropriate time out protocol was followed. Appropriate cardiac, blood pressure, and pulse oximetry monitoring was placed. After stable vital signs were noted, the patient was given intravenous conscious sedation. The posterior pharynx was sprayed with lidocaine spray times two and a bite block was placed. The patient was then placed in the left lateral decubitis position. The upper endoscope was lubricated and inserted into the patient s mouth and then carefully placed into the patient s throat. The patient was asked to swallow and the endoscope was then advanced into the patient s esophagus. The endoscope was further advanced down into the patient s stomach, then past the pylorus, then past the duodenal bulb and then to the second portion of the duodenum. There were no lesions noted in the duodenum. The endoscope was then retracted back into the stomach. A retroflex view of the stomach revealed no evidence of any masses. No ulcers, no strictures, no suspicious lesions were noted. No blood was noted in the stomach. The endoscope was retracted into the esophagus, where any insufflated gas in the stomach was aspirated out. The esophagus was normal. The upper endoscope was removed intact. Next, the colonoscopy was done. The colonoscope was lubricated and carefully inserted into the patient s anus. It was then advanced into the rectum, then into the sigmoid colon, then into the left descending colon, past the splenic flexure, into the transverse colon, past the hepatic flexure, then down into the right descending colon and into the cecum. The cecum was identified by: confluence of the tenae coli, identification of the ileocecal valve and appendiceal orifice, and external pressure with indentation. At this point, the colonoscope was slowly retracted back and the entire colonic mucosa was examined. There was not blood noted in the entire colon. There was no evidence of extrinsic compression and no inflammatory changes were noted. The colon cleansing preparation was adequate. No intraluminal obstructing lesions, no strictures, and no ulcers were noted. Retroflex view in the rectum revealed no lesions in the rectal vault except for hemorrhoidal changes - no bleeding was noted. The colonoscope was removed intact. Patient tolerated procedures well. - Complications none noted - Admit VTE Documentation VTE Present on Admission: Yes - patient on coumadin 12/01/172000 <Electronically signed by Bobbi Birmingham MD> Date Bobbi Birmingham MD CC: Sara Zarate; Sara Zarate OCCUPATIONAL HYGIENIST; Bobbi Birmingham MD; Leslie Peres OCCUPATIONAL HYGIENIST Signed BEDSIDE GLUCOSE Collected: 12/01/2017 Status: F Source: [place] 3:52 PM [facility] REPOSITORY TYPE CODE TESTS RESULT OUT OF REFERENCE UNITS RANGE LAB L501.080 70-110 mg/dL High BEDSIDE GLU 128 Result Comment: MANAGEMENT OF PATIENT CARE PER NURSING PROTOCOL Performed By: #### L501.080 #### [facility] Laboratory Point of Care [address] [place], [place] [address] BEDSIDE GLUCOSE Collected: 12/01/2017 Status: F Source: [place] 11:49 AM [facility] REPOSITORY TYPE CODE TESTS RESULT OUT OF REFERENCE UNITS RANGE LAB L501.080 70-110 mg/dL High BEDSIDE GLU 126 Result Comment: MANAGEMENT OF PATIENT CARE PER NURSING PROTOCOL Performed By: #### L501.080 #### [facility] Laboratory Point of Care [address] [place] [address] CONSULTATION Observed: 12/01/2017 Status: F Source: [place] 11:47 AM [facility] REPOSITORY [facility] Medical Records Department [address] [place] [address] Consultation 11/30/17 1004 MR#: [id number] Acct: [id number] Name: GABBI ROLLE Rep #: [id number] : 1945 72 From: Bobbi Birmingham MD PCP: Sara Zarate NP Status: ADM IN Y Location: [place] [address] - Consult Date of Consult: 11/30/17 - Reason for Consult Chief Complaint: lower GI bleeding, anemia History of Present Illness: 72 y/o morbidly obese female presents with anemia, Hgb 7.1, and lower GI bleeding. Notes BRBPR occasionally with bowel movements. Presented to ED, with hemodynamically stable. Admitted to hospitalist service. On chronic coumadin for afib. Denies history of PUD. Underwent colonoscopy by Dr. Hobbs on 12/25/16 for same as above. Findings of extensive diverticular disease - biopsy of right colon was negative - (concern for ischemic colitis) Past Medical History: morbid obesity diabetes chronic kidney disease stage III CAD chronic afib hypertension pulmonary hypertension Past Surgical History: hysterectomy appendectomy right foot surgery Medications: Ascorbic Acid [Vitamin C] Budesonide/Formoterol Fumarate 2 puff IH BID Calcium Citrate 500 mg PO TID Cholecalciferol (Vitamin D3) 4,000 unit PO DAILY Febuxostat [Uloric] 80 mg PO DAILY Furosemide [Lasix] 20 mg PO DAILY Linagliptin [Tradjenta] 5 mg PO DAILY PRN Lisinopril [Zestril] 10 mg PO DAILY Magnesium Oxide [Magnesium] 250 mg PO DAILY Metoprolol Tartrate [Lopressor 100 mg PO BID 11/18/17 Multivitamin [Daily Multiple 1 each PO DAILY Pravastatin Sodium 80 mg PO QHS Ropinirole HCl [Requip] 0.25 mg PO DAILY Sildenafil Citrate [Revatio] 20 mg PO TID Ubidecarenone [Coenzyme Q-10] 100 mg PO DAILY 8 Warfarin [Coumadin (PBKC)] 5 mg PO DAILY hydrALAZINE [Apresoline] 25 mg PO TID Ferrous Sulfate Allergies: Has no known drug allergies Social history: TOB use denies Review of Systems: General - denies fevers, denies anorexia Cardiovascular denies chest pain Pulmonary denies coughing up blood Gastrointestinal as per HPIs Neurological denies seizures Genitourinary denies blood in urine Hematological is on chronic coumadin, has had blood transfusions Skin denies open nonhealing wounds Musculoskeletal has some back pain Endocrine has diabetes Psychological denies hallucinations Physical examination: Vital signs Temp 98.1F HR 98 RR 16 BP 132/87 BMI 58 General WD/WN morbidely obese WF in no apparent distress, alert and oriented, not septic appearing HEENT Normocephalic. EOM intact with sclera clear and no icterus noted. Neck is supple with no jugular venous distention noted. Trachea is midline. Lungs clear to auscultation. normal breath sounds in all lung rodriguez. No rales/rhonchi/wheezing noted. No labored breathing noted, such as retractions. Heart normal S1 and S2 auscultated. No rubs/clicks/murmurs noted. Normal size and location by auscultation. Abdomen soft and benign. difficult to determine if any masses due to body habitus. Extremities no calf tenderness noted. Genitourinary/Rectal deferred Skin normal skin integrity. Neurological no focal deficits noted. 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 Will continue to monitor Hgb. If remains stable then consider d/c to home, patient does not want colonoscopy if doesn't have to. If Hgb continues to decline, will then proceed with colonoscopy tomorrow. Will also consider EGD, too. Can be on clear liquid diet today. I have explained procedure of colonoscopy which she had last year. I have counseled the patient as to the risks of the procedure, including but not limited to: infection, bleeding, injury to any intraabdominal organs such as liver/spleen, perforation of the GI tract, inability to complete the procedure, complications of anesthesia, postoperative pneumonia/cardiac problems/blood clots etc. the patient understands. She agrees with the above plan. I have answered all questions to the patient s satisfaction and the patient has no further questions. Greater than 50% of this patient encounter was spent in face to face discussion. 12/01/17 1147 <Electronically signed by Bobbi Birmingham MD> Date Bobbi Birmingham MD Cosigner Signature (if applicable): Date CC: Sara Zarate OCCUPATIONAL HYGIENIST; Bobbi Birmingham MD; Sara Zarate; Leslie Peres NP Signed PROTHROMBIN TIME W/INR Collected: 12/01/2017 Status: F Source: [place]UD[place] 7:43 AM [facility] REPOSITORY Order Comment: VERY HARD STICK UTO X4 TYPE CODE TESTS RESULT OUT OF RANGE REFERENCE UNITS LAB L300.4150 11.7-14.9 SECONDS High PROTIME 17.7 LAB L300.4200 Normal INR 1.5 Performed By: #### L300.3900, L300.4310 #### [facility] [address] [place], [place], [id number] PARTIAL THROMBOPLAST Collected: 12/01/2017 Status: F Source: [place]UD[place] TIME 7:43 AM [facility] REPOSITORY Order Comment: VERY HARD STICK UTO X4 TYPE CODE TESTS RESULT OUT OF REFERENCE UNITS RANGE LAB L300.4310 24.1-36.2 Seconds High PTT 44.5 Performed By: #### L300.3900, L300.4310 #### [facility] [address] [place], [address] BEDSIDE GLUCOSE Collected: 12/01/2017 Status: F Source: [place]UDIA 6:48 AM [facility] REPOSITORY TYPE CODE TESTS RESULT OUT OF REFERENCE UNITS RANGE LAB L501.080 70-110 mg/dL High BEDSIDE GLU 132 Result Comment: MANAGEMENT OF PATIENT CARE PER NURSING PROTOCOL Performed By: #### L501.080 #### [facility] Point of Care [address] [place], [place] [address] CBC-COMPLETE BLOOD CNT Collected: 12/01/2017 Status: F Source: [place]UD[place] NO DIFF 5:26 AM [facility] REPOSITORY TYPE CODE TESTS RESULT OUT OF RANGE REFERENCE UNITS LAB L100.1000 4.4-11.0 K/mm3 Normal WBC 8.8 LAB L100.1200 4.2-5.4 M/mm3 Low RBC 2.80 LAB L100.1300 12.0-15.0 g/dl Low HGB 8.4 LAB L100.1400 37-47 % Low HCT 28.4 LAB L100.1500 81-99 fL High MCV 101.4 LAB L100.1600 27.0-32.0 pg Normal MCH 30.0 LAB L100.1700 32-36 g/gl Low MCHC 29.6 LAB L100.1810 11.6-14.6 % High RDW CV 21.2 LAB L100.1820 35.1-43.9 fl High RDW SD 73.7 LAB L100.1900 150-450 K/mm3 Normal PLT 327 LAB L100.2000 6.2-12.0 fl Normal MPV 11.0 Performed By: #### L100.0500, L100.4500 #### [facility] [address] [place], [place], [address] DIFFERENTIAL COMMENT Collected: 12/01/2017 Status: F Source: [place] 5:26 AM [facility] REPOSITORY TYPE CODE TESTS RESULT OUT OF RANGE REFERENCE UNITS LAB L100.4500 Normal SMEAR COMMENT SCAN Result Comment: ANISOCYTOSIS 1+ MICROCYTOSIS 1+ HYPOCHROMIA 1+ POLYCHROMASIA 1+ Performed By: #### L100.0500, L100.4500 #### [facility] [address] [place], [address] BASIC METABOLIC Collected: 12/01/2017 Status: F Source: [place] PROFILE (BMP) 5:26 AM [facility] REPOSITORY TYPE CODE TESTS RESULT OUT OF RANGE REFERENCE UNITS LAB L501.0100 74-106 mg/dL High GLU 135 Result Comment: Fasting Glucose result greater than or equal to 126 mg/dL suggests DIABETES MELLITUS per A.D.A. criteria. Please note revised GLUCOSE reference range effective 2017. LAB L501.1000 7-18 mg/dL High BUN 29 LAB L501.1100 0.55-1.02 mg/dL High CREAT,SERUM 1.80 Result Comment: The validity of the calculated GFR AND GFRAA in patients over 70 years has not been determined. Clinical correlation is essential. LAB L501.1110 >60 mL/min Low EST GFR 29 Result Comment: Non- GFR Calc LAB L501.1115 >60 mL/min Low EST GFR - AA 35 Result Comment: GFR Calc LAB L501.1255 ml/min Normal Estimated CRCL 26.66 LAB L501.1300 10-20 RATIO Normal BUN/CRE 16.1 LAB L501.2200 8.5-10 mg/dL Normal .1 CA 9.0 LAB L501.5300 136-14 mmol/L Normal 5 NA 141 LAB L501.5600 3.5-5. mmol/L Normal 1 K 4.2 LAB L501.5900 98-107 mmol/L High CL 109 LAB L501.6100 21.0-3 mmol/L Low 2.0 CO2 20.0 LAB L501.6200 5-15 Normal GAP 12 Performed By: #### L500.2500, L501.5200 #### [facility] [address] [place], [address] MAGNESIUM Collected: 12/01/2017 Status: F Source: [place]UD[place] 5:26 AM [facility] REPOSITORY TYPE CODE TESTS RESULT OUT OF RANGE REFERENCE UNITS LAB L501.5200 1.6-2.6 mg/dL Normal MG 2.4 Performed By: #### L500.2500, L501.5200 #### [facility] [address] [place], [address] HH, HEMOGLOBIN AND Collected: 11/30/2017 Status: F Source: [place] HEMATOCRIT 11:20 PM [facility] REPOSITORY TYPE CODE TESTS RESULT OUT OF RANGE REFERENCE UNITS LAB L100.1300 12.0-15.0 g/dl Low HGB 6.8 LAB L100.1400 37-47 % Low HCT 23.3 Performed By: #### L100.0600 #### [facility] [address] [place], [address] BEDSIDE GLUCOSE Collected: 11/30/2017 Status: F Source: [place] 10:16 PM [facility] REPOSITORY TYPE CODE TESTS RESULT OUT OF REFERENCE UNITS RANGE LAB L501.080 70-110 mg/dL High BEDSIDE GLU 126 Result Comment: MANAGEMENT OF PATIENT CARE PER NURSING PROTOCOL Performed By: #### L501.080 #### [facility] Point of Care [address] [place] [address] HH, HEMOGLOBIN AND Collected: 11/30/2017 Status: F Source: [place] HEMATOCRIT 5:25 PM [facility] REPOSITORY TYPE CODE TESTS RESULT OUT OF RANGE REFERENCE UNITS LAB L100.1300 12.0-15.0 g/dl Low HGB 7.4 LAB L100.1400 37-47 % Low HCT 25.5 Performed By: #### L100.0600 #### [facility] [address] [place], [address] BEDSIDE GLUCOSE Collected: 11/30/2017 Status: F Source: [place] 5:03 PM [facility] REPOSITORY TYPE CODE TESTS RESULT OUT OF REFERENCE UNITS RANGE LAB L501.080 70-110 mg/dL High BEDSIDE GLU 140 Result Comment: MANAGEMENT OF PATIENT CARE PER NURSING PROTOCOL Performed By: #### L501.080 #### [facility] Point of Care [address] [place] [address] BEDSIDE GLUCOSE Collected: 11/30/2017 Status: F Source: [place] 11:48 AM [facility] REPOSITORY TYPE CODE TESTS RESULT OUT OF REFERENCE UNITS RANGE LAB L501.080 70-110 mg/dL High BEDSIDE GLU 132 Result Comment: MANAGEMENT OF PATIENT CARE PER NURSING PROTOCOL Performed By: #### L501.080 #### [facility] Point of Care [address] [place] [address] HH, HEMOGLOBIN AND Collected: 11/30/2017 Status: F Source: [place] HEMATOCRIT 11:33 AM [facility] REPOSITORY TYPE CODE TESTS RESULT OUT OF RANGE REFERENCE UNITS LAB L100.1300 12.0-15.0 g/dl Low HGB 7.6 LAB L100.1400 37-47 % Low HCT 25.8 Performed By: #### L100.0600 #### [facility] [address] [place], [address] HH, HEMOGLOBIN AND Collected: 11/30/2017 Status: F Source: [place] HEMATOCRIT 7:22 AM [facility] REPOSITORY TYPE CODE TESTS RESULT OUT OF RANGE REFERENCE UNITS LAB L100.1300 12.0-15.0 g/dl Low HGB 7.3 LAB L100.1400 37-47 % Low HCT 25.3 Performed By: #### L100.0600 #### [facility] [address] [place], [address] BASIC METABOLIC Collected: 11/30/2017 Status: F Source: [place] PROFILE (BMP) 7:22 AM [facility] REPOSITORY TYPE CODE TESTS RESULT OUT OF RANGE REFERENCE UNITS LAB L501.0100 74-106 mg/dL High GLU 110 Result Comment: Fasting Glucose result from 100 to 125 mg/dL suggests IMPAIRED HOMEOSTASIS per A.D.A. criteria. Please note revised GLUCOSE reference range effective 2017. LAB L501.1000 7-18 mg/dL High BUN 32 LAB L501.1100 0.55-1.02 mg/dL High CREAT,SERUM 1.50 Result Comment: The validity of the calculated GFR AND GFRAA in patients over 70 years has not been determined. Clinical correlation is essential. LAB L501.1110 >60 mL/min Low EST GFR 36 Result Comment: Non- GFR Calc LAB L501.1115 >60 mL/min Low EST GFR - AA 44 Result Comment: GFR Calc LAB L501.1255 ml/min Normal Estimated CRCL 32.00 LAB L501.1300 10-20 RATIO High BUN/CRE 21.3 LAB L501.2200 8.5-10 mg/dL Normal .1 CA 8.6 LAB L501.5300 136-14 mmol/L Normal 5 NA 141 LAB L501.5600 3.5-5. mmol/L Normal 1 K 4.6 LAB L501.5900 98-107 mmol/L High CL 111 LAB L501.6100 21.0-3 mmol/L Normal 2.0 CO2 22.0 LAB L501.6200 5-15 Normal GAP 8 Performed By: #### L500.2500 #### [facility] [address] [place], [address] PROTHROMBIN TIME W/INR Collected: 11/30/2017 Status: F Source: [place]UDIA 7:22 AM [facility] REPOSITORY TYPE CODE TESTS RESULT OUT OF RANGE REFERENCE UNITS LAB L300.4150 11.7-14.9 SECONDS High PROTIME 24.5 LAB L300.4200 Normal INR 2.2 Performed By: #### L300.3900 #### [facility] [address] [place], [address] BEDSIDE GLUCOSE Collected: 11/30/2017 Status: F Source: [place] 6:30 AM [facility] REPOSITORY TYPE CODE TESTS RESULT OUT OF REFERENCE UNITS RANGE LAB L501.080 70-110 mg/dL High BEDSIDE GLU 118 Result Comment: MANAGEMENT OF PATIENT CARE PER NURSING PROTOCOL Performed By: #### L501.080 #### [facility] Point of Care [address] [place] [address] HISTORY AND PHYSICAL Observed: 11/30/2017 Status: F Source: [place] EXAM 12:38 AM [facility] Medical Records Department [address] [place] [address] History and Physical 11/29/17 2332 MR#: [id number] Acct: [id number] Name: GABBI ROLLE Rep #: [id number] : 1945 72 From: Nohemi Walker PCP: Sara Zarate NP Status: ADM IN Location: [place] [address] Problem List (1) CKD (chronic kidney disease), stage III Status: Chronic (2) Acute kidney injury Status: Acute (3) Chronic atrial fibrillation Status: Chronic (4) GI bleed Status: Acute Qualifiers: GI bleed type/associated pathology: unspecified gastrointestinal hemorrhage type Qualified Code(s): K92.2 - Gastrointestinal hemorrhage, unspecified (5) HLD (hyperlipidemia) Status: Chronic Qualifiers: Hyperlipidemia type: unspecified Qualified Code(s): E78.5 - Hyperlipidemia, unspecified (6) HTN (hypertension) Status: Chronic Qualifiers: Hypertension type: essential hypertension Qualified Code(s): I10 - Essential (primary) hypertension (7) Nonrheumatic aortic (valve) stenosis Status: Chronic (8) CAD (coronary artery disease) Status: Chronic Qualifiers: Coronary Disease-Associated Artery/Lesion type: unspecified vessel or lesion type [place] vs. transplanted heart: unspecified whether [place] or transplanted heart Associated angina: angina presence unspecified Qualified Code(s): I25.10 - Atherosclerotic heart disease of [place] coro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 pectoris (9) Iron deficiency anemia Status: Chronic Qualifiers: Iron deficiency anemia type: unspecified iron deficiency Qualified Code(s): D50.9 - Iron deficiency anemia, unspecified (10) Morbid obesity Status: Chronic History of Present Illness Date of Admission: 11/29/17 Chief Complaint: Weakness, Lightheadedness The patient is a 72 y/o F w/ PMHx: Fe deficiency anemia following w/ Dr. Khan w/ intermittent Venofer/PRBC administrations, CKD stage III following w/ Dr. Mccurdy, Diabetes mellitus type II, HTN, HLD, AARTI on CPAP, Morbid Obesity, Chronic BL LE Lymphedema and Chronic venous skin changes, Chronic atrial fibrillation on coumadin therapy, History NSTEMI following w/ Dr. Raymundo, Hx Pulmonary HTN, Hx GI bleed prior who presents to the [facility] ED on 11/29/17 with history of ongoing lightheadedness, weakness x 24 hours with reported low Hgb with reported c-scope 1 year prior 12/[address] Hobbs. She notes dark stools chronically secondary to Fe supplementation. In the ED work-up included T 98, HR 119-->95, 138/99-->91/78, RR 18, 98% RA, CBC w/ WBC 7.9, Hgb 7.1 (most recent 11/18/17 Hgb 8.3-->11/26/17 Hgb 7), Plts 329 without shift, INR 2.4, BMP w/ BUN/Cr 37/1.80, glucose 127, trop < 0.02, BNP 217.5. In the ED PRBC x 1 unit ordered, pending. Past Medical History Past Medical History (Chronic Problems): Chronic Problems (Last Reviewed 11/04/17 @ 12:55 by Shirley Mcpherson) CKD (chronic kidney disease), stage III (Chronic) Atherosclerotic heart disease of [place] coro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 pectoris (Chronic) LHC: 07/30/2006; 04/10/17 Chronic atrial fibrillation (Chronic) Hyperkalemia (Chronic) HLD (hyperlipidemia) (Chronic) HTN (hypertension) (Chronic) Non-ST elevation (NSTEMI) myocardial infarction (Chronic) Nonrheumatic aortic (valve) stenosis (Chronic) Nonrheumatic mitral (valve) insufficiency (Chronic) Nonrheumatic tricuspid (valve) insufficiency (Chronic) Other secondary pulmonary hypertension (Chronic) SOB (shortness of breath) (Chronic) NSTEMI (non-ST elevated myocardial infarction) (Chronic) Chronic atrial fibrillation (Chronic) Hypertension (Chronic) Hyperlipidemia (Chronic) Type 2 diabetes mellitus (Chronic) CAD (coronary artery disease) (Chronic) Anemia (Chronic) CRF (chronic renal failure) (Chronic) Iron deficiency anemia (Chronic) Diverticular disease (Chronic) Morbid obesity (Chronic) Allergies No Known Allergies Allergy (Verified 11/18/17 14:05) Home Medications: Ambulatory Orders Medication Instructions Recorded Amoxicillin 2,000 mg PO X1 PRN 11/18/17 Surgical History: appendectomy, hysterectomy, - - R foot surgery. 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 Paternal History Items: - - Father with a history of coronary artery disease, diabetes, heart disease, hypertension. Review of Systems Constitutional: Reports: Malaise, Weakness, Fatigue. Denies: Chills, Fever, Weight Change HEENT: Denies: Head Aches, Sinus Congestion, Sinus Drainage Cardiovascular: Reports: Edema, Light Headedness. Denies: Chest Pain, Palpitations Respiratory: Reports: Shortness of breath upon exertion. Denies: Cough, Shortness of breath at rest, Sputum production Gastrointestinal: Denies: Abdominal Pain, Nausea, Vomiting Genitourinary: Denies: Dysuria Musculoskeletal: Denies: Joint Pain, Joint Tenderness Skin: Reports: Skin Changes. Denies: Rash, Wounds Neurological: Denies: Numbness, Tingling, Focal weakness Psychiatric: Denies: Anxiety, Depression, Homicidal Ideations, Suicidal Ideations Hematologic/ Lymphatic: Reports: Anemia. Denies: Easy Bruising, Easy Bleeding VTE Information - Inpt Only VTE Present on Admission: No VTE Mechan Device Prophylaxis: SCD's VTE Pharm Prophylaxis ordered?: No Reason prophylaxis not ordered:: Medical Contraindication Patient Problems: Active and Suspected Problems (Last Reviewed 03/19/18 @ 12:55 by Shirley Mcpherson) Acute kidney injury (Acute) Subjective: Seated upright in the ED bed, NAD. Objective: Physical Examination: General: awake, alert, oriented x 3 and cooperative, seated upright in the ED bed in no apparent distress. Skin: normal color, turgor, no icterus, cyanosis except BL LE chronic venous stasis dermatitis skin changes. HEENT: AT/NC, EOMI, PERRLA, mildly dry MM, no carotid bruits or JVD noted; however, thickened neck makes examination difficult. Lungs: Diminished BS, > bases, mild effort, morbidly obese habitus, no wheezing, rhonchi or rales noted. Heart: Irregular, mildly tachycardic; no gallop, rub audible, SM. Abdomen: soft, morbidly obese, NTTP, ND, normal BS, no HSM; however, habitus makes examination difficult. Extremities: no cyanosis, clubbing, BL LE chronic venous stasis, 2+ ankle to distal rosado edema, chronic lymphedema. Neurological: patient awake, alert, oriented x 3; cognitive function intact; pupils equally reactive to light and accomodation; cranial nerves II-XII grossly normal, moving all 4 extremities, no focal deficits, strength severely globally decreased secondary to acute presentation and co-morbidities including habitus. Psychiatric: affect appears normal, no acute evidence of depressive or anxiety feelings. - Physical Exam Vital Signs Temp Pulse Resp BP Pulse Ox 98.0 F 95 23 H 91/78 96 11/29/17 18:21 11/29/17 23:24 11/29/17 23:24 11/29/17 23:24 11/29/17 23:24 Oxygen Delivery Method Room Air Weight: 365 lb Body Mass Index (BMI) 57.2 Microbiology Past 72 Hours 11/29/17 20:34 Stool Occult Blood (LASHAUN) - Final Stool Occult Blood Positive Laboratory Tests Past 24 Hrs WBC 7.9 RBC 2.38 L Assessment/Plan Active and Suspected Problems (Last Reviewed 11/04/17 @ 12:55 by Shirley Mcpherson) Acute kidney injury (Acute) The patient is a 72 y/o F w/ PMHx: Fe deficiency anemia following w/ Dr. Khan w/ intermittent Venofer/PRBC administrations, CKD stage III following w/ Dr. Mccurdy, Diabetes mellitus type II, HTN, HLD, AARTI on CPAP, Morbid Obesity, Chronic BL LE Lymphedema and Chronic venous skin changes, Chronic atrial fibrillation on coumadin therapy, History NSTEMI following w/ Dr. Raymundo, Hx Pulmonary HTN, Hx GI bleed prior who presents to the [facility] ED on 11/29/17 with history of ongoing lightheadedness, weakness x 24 hours with reported low Hgb. (1) Acute GI Bleed w/ resultant Acute Blood Loss Anemia on Chronic Fe Deficiency Anemia: Admission Hgb 7.1, stool guiac positive, reported recent labs w/ 11/18/17 Hgb 8.3, 11/26/17 Hgb 7.0. Will admit to PCU, maintain on IVFs. Admission INR 2.4, given recent Hgb similar to repeat will administer vitamin K oral regimen only, obtain serial H+H q 6 hours, if decreased further will administer FFP as needed, PRBC 1 u ordered per ED, pending. Will maintain on IV PPI. Dr. Birmingham consulted per ED, pending. Continue Fe supplementation. Dr. Khan also for Fe management/evaluation. (2) Acute kidney injury: Secondary to acute presentation as noted #1, nephrotoxic regimen. Admission BUN/Cr 37/1.80, prior baseline creatinine noted to be 1.2-1.3. Following w/ Dr. Mccurdy outpatient. Will hydrate, hold nephrotoxic medications and repeat chemistry in AM. If no improvement would plan FeNa and renal US assessment. (3) CAD: Noted most recent cardiac catheterization 2005 w/ normal left main coronary artery, and left anterior descending artery with isolated plaque of 30-40%, circumflex artery with isolated plaque disease, obtuse marginal with 30-40% disease in the right coronary artery with isolated plaque disease. Holding coumadin, continue statin, holding ACEI, BB secondary to hypotension. (4) Chronic Atrial Fibrillation: EKG tachycardic, atrial fibrillation, improved w/ IVFs, holding metoprolol given hypotension, add back once appropriate, holding coumadin, repeat INR. (5) Hypertension: BP low in the ED, will hold regimen pending improvement, PRN hydralazine. (6) Hyperlipidemia: Continue home statin regimen. (7) Morbid Obesity: Weight loss and lifestyle changes encouraged, nutrition consulted. (8) Diabetes mellitus type II: Hold oral home regimen, NPO status, accu checks w/ ISS. (9) Valvular Heart Disease: History of aortic stenosis, most recent ECHO w/ mild to moderate aortic stenosis w/ mean gradient 30 mmHgb. (10) Pulmonary HTN: Continue home sildenafil regimen. (11) AARTI: Maintain on home CPAP. (12) Abnormal CXR: Suspect poor film especially given habitus, no recent marked cough, fever, no WBC elevation or marked shift, but to be cautious as noted hydrating gently overnight, repeat PA and Lateral in AM. (13) DVT Prophylaxis: SCDs, holding coumadin given presentation. Code Visit Inpatient E AND M: [id number] Init Hosp L3 11/30/17 0038 <Electronically signed by Nohemi Walker > Date Nohemi Walker Cosigner Signature: Date (if applicable) CC: Sara Zarate NP; Nohemi Walker Signed CHEST PA AND LATERAL Observed: 11/30/2017 Status: F Source: [place] 12:30 AM [facility] REPOSITORY [facility] Imaging Services [address] [place] [address] Chest PA and Lateral MR#: [id number] Acct: [id number] Name: GABBI ROLLE Rep #: [id number] : 1945 F 72 From: Amador Guo MD PCP: Sara Zarate NP Status: ADM IN Study: Chest PA and Lateral Date of Exam: 11/30/17 Exam# [id number] Ordering Dr: Nohemi Walker STUDY: X-RAY CHEST REASON FOR EXAM: Female, 72 years old. Shortness of breath. COPD. TECHNIQUE: PA and lateral views of the chest. COMPARISON: Including November 29, 2017 FINDINGS: There are monitoring devices. There is interstitial accentuation of the lungs. There is left lower lung airspace consolidation. Small left pleural effusion. There is moderate cardiac enlargement. Normal mediastinum and veronika. Normal visualized pulmonary arteries. Normal visualized aortic arch and descending thoracic aorta. Normal visualized thoracic spine. Normal visualized ribs, clavicles, and shoulders. There is no demonstrated abnormality of the visualized soft tissue structures of the upper abdomen. RAD/Chest PA and Lateral IMPRESSION: Left lower lung infiltrate or edema and pleural effusion. Cardiac enlargement. Electronically Signed: Amador Guo MD at 8:20 EDT , Service support , CC: Sara Zarate NP; Nohemi Walker Propeller Mechanic: Signed EMERGENCY DEPARTMENT Observed: 11/30/2017 Status: F Source: [place] SUMMARY 12:20 AM [facility] REPOSITORY [facility] Medical Records Department [address] [place] [address] Emergency Department Summary 11/30/17 0005 MR#: [id number] Acct: [id number] Name: GABBI ROLLE Rep #: [id number] : 1945 72 From: Gabi Gardner MD PCP: Sara Zarate NP Status: ADM IN - ER Visit Summary Date of Service: 11/30/17 Chief Complaint: Anemia, GI bleed History of Present Illness: The patient is a 72 F presenting with low hemoglobin. Patient states she had her hemoglobin checked on November 18 and it was 8.3. On recheck on November 26 it was 7.0. Her primary care physician advised her to come to the ED for evaluation. She states she always has dark stools secondary to iron supplements. She has had bright red blood around the stool. She has a history of diverticular disease. She is on Coumadin. She has had lightheadedness and mild shortness of breath. Denies syncope. Denies chest pain. Physical Examination: Vitals are stable. Patient is afebrile. Alert no acute distress. HEENT exam is unremarkable. Neck is supple. Lungs are clear and equal bilaterally. Heart is irregularly irregular Abdomen is soft nontender nondistended. Extremities are unremarkable. Skin is warm and dry. No focal neurologic deficit. Remainder of exam is unremarkable. Emergency Department Course and Treatment: Stool is guaiac positive. Hemoglobin 7.1. Chemistries show glucose 127, BUN 37, creatinine 1.80. INR is 2.4. Troponin is negative. BNP 217.5. EKG is A. fib rate of 95, lateral ST depression with T-wave inversion. Patient continues to deny any chest pain. She was given a unit of packed red blood cells and vitamin K. Discussed with Dr. Birmingham who will see her in consultation. Discussed with the hospitalist for admission. Disposition: Admission Impression: GI bleed, anemia This note was generated with [employer] dictation software. It may contain incorrect words, spelling, and punctuation that were not noted in review of the chart prior to signing ED Disposition - Plan for ED Patient: Chief Complaint: Abn Labs What to do if you have Problems For any increased pain, shortness of breath, bleeding, nausea or vomiting, chest pain, or any unexpected problems, contact your Primary Care Provider. Call [employer] [facility] ([phone]) or report to the closest Emergency Room. Call 911 if necessary. 11/30/17 0020 <Electronically signed by Gabi Gardner MD> Date Gabi Gardner MD Cosigner Signature (If Indicated): Date CC: Sara Zarate OCCUPATIONAL HYGIENIST CBC W/DIFF, AUTOMATED Collected: 11/29/2017 Status: F Source: [place] 8:55 PM [facility] REPOSITORY TYPE CODE TESTS RESULT OUT OF RANGE REFERENCE UNITS LAB L100.1000 4.4-11.0 K/mm3 Normal WBC 7.9 LAB L100.1200 4.2-5.4 M/mm3 Low RBC 2.38 LAB L100.1300 12.0-15.0 g/dl Low HGB 7.1 LAB L100.1400 37-47 % Low HCT 25.1 LAB L100.1500 81-99 fL High MCV 105.5 LAB L100.1600 27.0-32.0 pg Normal MCH 29.8 LAB L100.1700 32-36 g/gl Low MCHC 28.3 LAB L100.1810 11.6-14.6 % High RDW CV 18.7 LAB L100.1820 35.1-43.9 fl High RDW SD 66.4 LAB L100.1900 150-450 K/mm3 Normal PLT 329 LAB L100.2000 6.2-12.0 fl Normal MPV 10.3 LAB L100.2100 47-70 % High NEUT% 77.3 LAB L100.2200 19-41 % Low LY% 15.5 LAB L100.2300 0-10 % Normal MONO% 6.1 LAB L100.2400 0-5 % Normal EO% 0.6 LAB L100.2500 0-1 % Normal BASO% 0.4 LAB L100.2550 0.0-0.9 % Normal IM GRAN % 0.100 Result Comment: IG% - Immature Granulocytes (promyelocytes, myelocytes and metamyelocytes) > 1% indicates that a LEFT SHIFT is Present. LAB L100.2620 2.0-7.7 X10 3/uL Normal Absolute Neut 6.1 LAB L100.2720 0.83-4.51 X10 3/ul Normal Absolute Lymph 1.22 LAB L100.4500 Normal SMEAR COMMENT SCANNED LAB L100.5500 ADEQ Normal PLT EST ADEQUATE LAB L100.5650 Normal PLT MORPH GIANT Result Comment: RARE GIANT PLATELET LAB L100.7300 Normal ANISO 2+ LAB L100.7500 Normal POLYCHROMASIA 1+ LAB L100.7800 Normal MACROCYTE 1+ Performed By: #### L100.0100 #### [facility] [address] [place], [place], [address] BASIC METABOLIC Collected: 11/29/2017 Status: F Source: [place] PROFILE ([facility]) 8:55 PM [facility] REPOSITORY Order Comment: 'TROP' Serial specimen #1, #2, #3, or #4: 1 TYPE CODE TESTS RESULT OUT OF RANGE REFERENCE UNITS LAB L501.0100 74-106 mg/dL High GLU 127 Result Comment: Fasting Glucose result greater than or equal to 126 mg/dL suggests DIABETES MELLITUS per A.D.A. criteria. Please note revised GLUCOSE reference range effective 2017. LAB L501.1000 7-18 mg/dL High BUN 37 LAB L501.1100 0.55-1.02 mg/dL High CREAT,SERUM 1.80 Result Comment: The validity of the calculated GFR AND GFRAA in patients over 70 years has not been determined. Clinical correlation is essential. LAB L501.1110 >60 mL/min Low EST GFR 29 Result Comment: Non- GFR Calc LAB L501.1115 >60 mL/min Low EST GFR - AA 35 Result Comment: GFR Calc LAB L501.1255 ml/min Normal Estimated CRCL 26.66 LAB L501.1300 10-20 RATIO High BUN/CRE 20.6 LAB L501.2200 8.5-10 mg/dL Normal .1 CA 8.8 LAB L501.5300 136-14 mmol/L Normal 5 NA 139 LAB L501.5600 3.5-5. mmol/L Normal 1 K 4.5 LAB L501.5900 98-107 mmol/L Normal CL 107 LAB L501.6100 21.0-3 mmol/L Normal 2.0 CO2 23.0 LAB L501.6200 5-15 Normal GAP 9 Performed By: #### L500.2500, L501.4010 #### [facility] [address] [place], [address] TROPONIN-I Collected: 11/29/2017 Status: F Source: [place] 8:55 PM [facility] REPOSITORY Order Comment: 'TROP' Serial specimen #1, #2, #3, or #4: 1 TYPE CODE TESTS RESULT OUT OF RANGE REFERENCE UNITS LAB L501.4010 <0.06 ng/mL Normal < 0.02 TROPONIN-I Result Comment: TROPONIN-I EXPECTED VALUES <0.05 NEGATIVE 0.06 - 0.59 AT RISK OF MN > OR = 0.60 SUGGEST MN Performed By: #### L500.2500, L501.4010 #### [facility] [address] [place], [place], [address] PROTHROMBIN TIME W/INR Collected: 11/29/2017 Status: F Source: [place] 8:55 PM [facility] REPOSITORY TYPE CODE TESTS RESULT OUT OF RANGE REFERENCE UNITS LAB L300.4150 11.7-14.9 SECONDS High PROTIME 26.4 LAB L300.4200 Normal INR 2.4 Performed By: #### L300.3900 #### [facility] [address] [place], [address] BNP,B-TYPE NATRIURETIC Collected: 11/29/2017 Status: F Source: [place] PEPTIDE 8:55 PM [facility] REPOSITORY TYPE CODE TESTS RESULT OUT OF RANGE REFERENCE UNITS LAB L503.6620 0-100 pg/mL High B-TYPE 217.5 MARY JO PEP Performed By: #### L503.6620 #### [facility] [address] [place], [place], [address] TYPE AND SCREEN Collected: 11/29/2017 Status: F Source: [place] 8:55 PM [facility] REPOSITORY Order Comment: Has pt arrived? Y Reason for Type AND Screen/Red Cells: HEMORRHAGE, GI BLEED TYPE CODE TESTS RESULT OUT OF RANGE REFERENCE UNITS LAB B10.0800 A Normal BLOOD TYPE GEL POSITIVE LAB B100.4000 Normal Antibody NEGATIVE Screen Performed By: #### B101.7450 #### [facility] [address] [place], [place], [address] RC Collected: 11/29/2017 Status: F Source: [place] 8:55 PM [facility] REPOSITORY TYPE CODE TESTS RESULT OUT OF REFERENCE UNITS RANGE LAB U100.0000 [id number] TRANSFUSED PRODUCT: T AND S with Crossmatch, Red Cells COUNT: 1 Performed By: #### U100.0000 #### Non-[facility] - refer to report for specific site MAGNESIUM Collected: 11/29/2017 Status: F Source: [place] 8:55 PM [facility] REPOSITORY TYPE CODE TESTS RESULT OUT OF RANGE REFERENCE UNITS LAB L501.5200 1.6-2.6 mg/dL High MG 3.0 Performed By: #### L501.5200 #### [facility] [address] [place], [address] RC Collected: 11/29/2017 Status: F Source: [place] 8:55 PM [facility] REPOSITORY TYPE CODE TESTS RESULT OUT OF REFERENCE UNITS RANGE LAB U100.0000 [id number] TRANSFUSED PRODUCT: T AND S with Crossmatch, Red Cells COUNT: 2 Performed By: #### U100.0000 #### [facility] - refer to report for specific site Observed: 11/29/2017 Status: F Source: [place] STOOL OCCULT BLOOD 8:34 PM [facility] REPOSITORY Order Date: 11/29/17 Has pt arrived? Y STOB iFOB Occult Blood Positive ORGANISM 1: OCCULT BLOOD POSITIVE Performed By: #### M100.7900 #### [facility] [address] [place], [address] CHEST 1 VIEW Observed: 11/29/2017 Status: F Source: [place]UD[place] (PORTABLE) 8:34 PM [facility] REPOSITORY [facility] Imaging Services [address] [place] [address] Chest 1 View (Portable) MR#: [id number] Acct: [id number] Name: GABBI ROLLE Rep #: [id number] : 1945 F 72 From: Norah Arreaga MD PCP: Sara Zarate NP Status: REG ER Study: Chest 1 View (Portable) Date of Exam: 11/29/17 Exam# [id number] Ordering Dr: Gabi Gardner MD STUDY: X-RAY CHEST REASON FOR EXAM: Female, 72 years old. Coughing weakness and low hemoglobin. TECHNIQUE: Single AP portable view of the chest. Apical lordotic. COMPARISON: Prior chest radiograph of November 18, 2017. Prior PA and lateral chest of August 06, 2017 FINDINGS: The right lung is expanded and without consolidation or atelectasis from baseline radiograph of August 06, 2017. There appears to be a new airspace opacity at the left lung base at the costophrenic angle. Otherwise stable findings of the left lung. Continued cardiomegaly. Normal mediastinum and veronika. Normal visualized pulmonary arteries. There [...] angle. Possible new area of consolidation or atelectasis. This may be in part secondary to a exaggerated epicardiac fat pad as this film is apical lordotic compared to prior standard PA radiographs. Continued mild cardiomegaly. Negative for pulmonary venous congestion. Electronically Signed: Norah Arreaga MD at 21:39 EDT , Service support , CC: Sara Zarate OCCUPATIONAL HYGIENIST; Gabi Gardner MD Propeller Mechanic: Signed CBC Collected: 11/26/2017 Status: F Source: [place] FRANCES 9:30 AM [facility] REPOSITORY TYPE CODE TESTS RESULT OUT OF RANGE REFERENCE UNITS LAB CBC(LOINC) CBC Result Comment: CBC-COMPLETE BLOOD COUNT LAB WBC(LOINC) 4.5 - 10.8 x 10EE3/UL WBC 6.2 LAB RBC(LOINC) 4.10 - x 10EE6/UL 5.30 RBC Low 2.29 LAB HEMOGLOBIN(LOINC 12.0 - g/dl ) 16.0 Low HEMOGLOBIN 7.0 LAB HEMATOCRIT(LOINC 34.0 - % ) 46.0 Low HEMATOCRIT 22.1 LAB MCV(LOINC) 80 - 99 fl MCV 96 LAB MCH(LOINC) 27 - 33 pg MCH 31 LAB MCHC(LOINC) 32 - 36 X10 3 MCHC 32 LAB RDW/CV(LOINC) 12.0 - % 15.6 RDW/CV High 18.6 LAB PLATELET(LOINC) 150 - 450 x10EE3/UL PLATELET 283 LAB MPV(LOINC) 6.6 - 10.5 fl MPV 9.5 Result Comment: AUTOMATED DIFFERENTIAL LAB NEUT %(LOINC) 46.0 - 76.0 % NEUT % High 81.9 LAB LYMPH %(LOINC) 20.0 - 45.0 % Low LYMPH % 11.9 LAB MONOS %(LOINC) 0.0 - 10.0 % MONOS % 4.3 LAB EO %(LOINC) 0.0 - 7.0 % EO % 1.0 LAB BASO %(LOINC) 0.0 - 2.0 % BASO % 0.9 LAB Lymph #(LOINC) 0.80 - 2.80 x10EE3/U Low L Lymph # 0.70 LAB Neut #(LOINC) 1.50 - 7.10 x10EE3/U L Neut # 5.10 LAB Roosevelt #(LOINC) 0.20 - 1.00 x10EE3/U L Roosevelt # 0.30 LAB EO #(LOINC) 0.00 - 0.50 x10EE3/U L EO # 0.10 LAB Baso #(LOINC) 0.00 - 0.10 x10EE3/U L Baso # 0.10 LAB MANUAL DIFF([facility]) MANUAL DIFF N/A LAB MORPHOLOGY([facility] ) MORPHOLOGY N/A Result Comment: {CD] Performed By: #### [id number] #### [facility],[address] [place] [address] CMP WITH EGFR Collected: 11/26/2017 Status: F Source: [facility] 9:30 AM [facility] REPOSITORY TYPE CODE TESTS RESULT OUT OF RANGE REFERENCE UNITS LAB CMP with eGFR([facility]) CMP with eGFR Result Comment: COMPREHENSIVE METABOLIC PANEL LAB SODIUM(LOINC) 136 - 145 mmol/l SODIUM 137 LAB POTASSIUM(INC) 3.5 - 5.1 mmol/L POTASSIUM 4.4 LAB CHLORIDE(LOINC) 98 - 107 mmol/L CHLORIDE 106 LAB CO2(LOINC) 21.0 - mmol/L 31.0 CO2 Low 19.6 LAB GLUCOSE(LOINC) 74 - 106 mg/dl GLUCOSE High 162 LAB BUN(INC) 6 - 20 mg/dl BUN High 31 LAB CREATININE(INC) 0.6 - 1.2 mg/dl High CREATININE 1.5 LAB AST/SGOT(LOINC) 13 - 39 U/L AST/SGOT 19 LAB ALK PHOS(LOINC) 38 - 126 U/L ALK PHOS 60 LAB CALCIUM(LOINC) 8.6 - mg/dl 10.2 CALCIUM 9.3 LAB TOTAL 6.4 - 8.3 g/dl PROTEIN(LOINC) TOTAL PROTEIN 6.6 LAB ALBUMIN(LOINC) 3.4 - 4.8 g/dL ALBUMIN 3.7 LAB GLOBULIN(LOINC) 1.5 - 3.8 G/DL GLOBULIN 2.9 LAB A/G RATIO(LOINC) 0.9 - 1.6 A/G RATIO 1.3 LAB TOTAL BILI(LOINC) 0.0 - 1.5 mg/dl TOTAL BILI 0.4 LAB B/C RATIO(LOINC) 0 - 30 ratio B/C RATIO 21 LAB ALT/SGPT(LOINC) 8 - 35 U/L ALT/SGPT 11 LAB ANION GAP(LOINC) 10 - 20 mmol/L ANION GAP 16 LAB AGE(LOINC) years AGE 72 LAB eGFR(LOINC) 60 - 999 ML/MINUTE eGFR Low 34 LAB eGFR(AA)(LOINC) 60 - 999 ML/MINUTE eGFR(AA) Low 41 Result Comment: ACCORDING TO THE NATIONAL KIDNEY DISEASE EDUCATION PROGRAM(NKDE), A NORMAL eGFR IS A VALUE GREATER THAN OR EQUAL TO 60 ML/MIN/1.73 SQ METERS. CHRONIC KIDNEY DISEASE: <60mL/MIN/1.73 SQ METERS KIDNEY FAILURE: <15mL/MIN/1.73 SQ METERS THIS TEST SHOULD ONLY BE USED FOR PATIENTS 18 YEARS OF AGE AND OLDER. Performed By: #### [id number] #### [place] [id number] BNP (B-TYPE NATRIURETIC Collected: 11/26/2017 Status: F Source: [facility] PEPTIDE) 9:30 AM [facility] REPOSITORY TYPE CODE TESTS RESULT OUT OF RANGE REFERENCE UNITS LAB BNP(LOINC) 1 - 100 pg/ml High BNP 187 Performed By: #### [id number] #### [place] [id number] LEAD ELECTROCARDIOGRAM Observed: 11/22/2017 Status: F Source: [place] 12:57 PM [facility] REPOSITORY [facility] Cardiovascular [place] [address] 12 Lead EKG 11/18/17 1440 MR#: [id number] Acct: [id number] Name: GABBI ROLLE Rep #: [id number] : 1945 72 From: Niraj Raymundo MD Attending Dr: Status: DEP ER Ordering Dr: Ariane Lakhani MD Date: 11/18/17 Location: ED Sex: F C Admitted: Test Reason : SOB Blood Pressure : / mmHG Vent. Rate : 085 BPM Atrial Rate : 058 BPM P-R Int : 000 ms QRS Dur : 088 ms QT Int : 372 ms P-R-T Axes : 000 050 185 degrees QTc Int : 442 ms Atrial fibrillation Nonspecific ST and T wave abnormality Abnormal ECG Confirmed by NIRAJ RAYMUNDO MD ([id number]), graphics editor JONATHON ROLLE ([id number]) on 11/22/2017 12:57:07 PM Referred By: JOO Confirmed By:NIRAJ RAYMUNDO MD 11/22/17 1257 Date Niraj Raymundo MD CC: Sara Zarate NP; Ariane Lakhani MD Signed EMERGENCY DEPARTMENT Observed: 11/18/2017 Status: F Source: [place] SUMMARY 5:48 PM [facility] REPOSITORY [facility] Medical Records Department [address] [place] [address] Emergency Department Summary 11/18/17 1735 MR#: [id number] Acct: [id number] Name: GABBI ROLLE Rep #: [id number] : 1945 72 From: Ariane Lakhani MD PCP: Sara Zarate NP Status: REG ER - ER Visit Summary Date of Service: 11/18/17 Chief Complaint: Shortness of breath History of Present Illness: The patient is a [...] has noticed increasing shortness of breath since starting the Revatio. She called Dr. Nelson's office today and was told to continue taking the medication as it may take 6 weeks to see benefit. She called her digital associate today to see if she needed to [...] at the ankles. Test Results: Two-view chest x-ray is consistent with CHF. EKG is A. fib at 85 with no sign of acute ischemia. CBC was normal white count with hemoglobin of 8.3. This is consistent with her most recent hemoglobin level. Chemistry studies reveal BUN of 30 and a creatinine 1.48. This again is consistent with her baseline. INR is therapeutic at 2.8. Troponin is less than 0.02. BNP is 226. Emergency Department Course and Treatment: On repeat examination patient is resting comfortably. She does not tell me that her Lasix was recently decreased in dose. She does not have a known history of problems with CHF. I spoke with her software requirements engineer, Dr. Raymundo. Patient will get a dose of IV Lasix now and will increase her Lasix at home back to her prior dosing. Treatment Plan: [] Disposition: Discharge Impression: Dyspnea This note was generated with [employer] dictation software. It may contain incorrect words, spelling, and punctuation that were not noted in review of the chart prior to signing ED Disposition - Plan for ED Patient: Chief Complaint: Shortness of Breath Referrals: Sara Zarate [Primary Care Provider] - What to do if you have Problems For any increased pain, shortness of breath, bleeding, nausea or vomiting, chest pain, or any unexpected problems, contact your Primary Care Provider. Call [employer] [facility] ([phone]) or report to the closest Emergency Room. Call 911 if necessary. 11/18/17 6376 <Electronically signed by Ariane Lakhani MD> Date Ariane Lakhani MD Cosigner Signature (If Indicated): Date CC: Sara Zarate NP DISCHARGE INSTRUCTION Observed: 11/18/2017 Status: F Source: [place] 5:43 PM [facility] REPOSITORY [facility] Medical Records Department [address] [place] [address] Discharge Instruction 11/18/171739 MR#: [id number] Acct: [id number] Name: GABBI ROLLE Rep #: [id number] : 1945 72 From: Ariane Lakhani MD PCP: Sara Zarate NP Status: REG ER ED Disposition - Plan for ED Patient: Disposition: Home or Assisted Living Chief Complaint: Shortness of Breath Instructions: ED Dyspnea Shortness of Breath, ED CHF General Referrals: Sara Zarate [Primary Care Provider] - Niraj Raymundo MD [STAFF PHYSICIAN] - Carlos Nelson MD [STAFF PHYSICIAN] - What to do if you have Problems For any increased pain, shortness of breath, bleeding, nausea or vomiting, chest pain, or any unexpected problems, contact your Primary Care Provider. Call [facility] ([phone]) or report to the closest Emergency Room. Call 911 if necessary. 11/18/171742 <Electronically signed by Ariane Lakhani MD> Date Ariane Lakhani MD Cosigner Signature (If Indicated): Date CC: Sara Zarate NP PROTHROMBIN TIME W/INR Collected: 11/18/2017 Status: F Source: [place] 2:40 PM [facility] REPOSITORY TYPE CODE TESTS RESULT OUT OF RANGE REFERENCE UNITS LAB L300.4150 11.7-14.9 SECONDS High PROTIME 29.7 LAB L300.4200 Normal INR 2.8 Performed By: #### L300.3900 #### [facility] [address] [place], [place], [address] BASIC METABOLIC Collected: 11/18/2017 Status: F Source: [place] PROFILE (BMP) 2:40 PM [facility] REPOSITORY Order Comment: 'TROP' Serial specimen #1, #2, #3, or #4: 1 TYPE CODE TESTS RESULT OUT OF RANGE REFERENCE UNITS LAB L501.0100 74-106 mg/dL High GLU 159 Result Comment: Fasting Glucose result greater than or equal to 126 mg/dL suggests DIABETES MELLITUS per A.D.A. criteria. Please note revised GLUCOSE reference range effective 2017. LAB L501.1000 7-18 mg/dL High BUN 30 LAB L501.1100 0.55-1.02 mg/dL High CREAT,SERUM 1.48 Result Comment: The validity of the calculated GFR AND GFRAA in patients over 70 years has not been determined. Clinical correlation is essential. LAB L501.1110 >60 mL/min Low EST GFR 37 Result Comment: Non- GFR Calc LAB L501.1115 >60 mL/min Low EST GFR - AA 44 Result Comment: GFR Calc LAB L501.1255 ml/min Normal Estimated CRCL 32.43 LAB L501.1300 10-20 RATIO High BUN/CRE 20.3 LAB L501.2200 8.5-10 mg/dL Normal .1 CA 8.8 LAB L501.5300 136-14 mmol/L Normal 5 NA 141 LAB L501.5600 3.5-5. mmol/L Normal 1 K 4.1 LAB L501.5900 98-107 mmol/L High CL 110 LAB L501.6100 21.0-3 mmol/L Normal 2.0 CO2 24.0 LAB L501.6200 5-15 Normal GAP 7 Performed By: #### L500.2500, L501.4010 #### [facility] [address] [place], [place], [address] TROPONIN-I Collected: 11/18/2017 Status: F Source: [place] 2:40 PM [facility] REPOSITORY Order Comment: 'TROP' Serial specimen #1, #2, #3, or #4: 1 TYPE CODE TESTS RESULT OUT OF RANGE REFERENCE UNITS LAB L501.4010 <0.06 ng/mL Normal < 0.02 TROPONIN-I Result Comment: TROPONIN-I EXPECTED VALUES <0.05 NEGATIVE 0.06 - 0.59 AT RISK OF MN > OR = 0.60 SUGGEST MN Performed By: #### L500.2500, L501.4010 #### [facility] [address] [place], [place], [address] CBC W/DIFF, AUTOMATED Collected: 11/18/2017 Status: F Source: [place] 2:40 PM [facility] REPOSITORY TYPE CODE TESTS RESULT OUT OF RANGE REFERENCE UNITS LAB L100.1000 4.4-11.0 K/mm3 Normal WBC 6.0 LAB L100.1200 4.2-5.4 M/mm3 Low RBC 2.76 LAB L100.1300 12.0-15.0 g/dl Low HGB 8.3 LAB L100.1400 37-47 % Low HCT 29.3 LAB L100.1500 81-99 fL High MCV 106.2 LAB L100.1600 27.0-32.0 pg Normal MCH 30.1 LAB L100.1700 32-36 g/gl Low MCHC 28.3 LAB L100.1810 11.6-14.6 % High RDW CV 19.1 LAB L100.1820 35.1-43.9 fl High RDW SD 71.6 LAB L100.1900 150-450 K/mm3 Normal PLT 249 LAB L100.2000 6.2-12.0 fl Normal MPV 10.8 LAB L100.2100 47-70 % High NEUT% 80.6 LAB L100.2200 19-41 % Low LY% 12.0 LAB L100.2300 0-10 % Normal MONO% 5.5 LAB L100.2400 0-5 % Normal EO% 1.2 LAB L100.2500 0-1 % Normal BASO% 0.5 LAB L100.2550 0.0-0.9 % Normal IM GRAN % 0.200 Result Comment: IG% - Immature Granulocytes (promyelocytes, myelocytes and metamyelocytes) > 1% indicates that a LEFT SHIFT is Present. LAB L100.2620 2.0-7.7 X10 3/uL Normal Absolute Neut 4.8 LAB L100.2720 0.83-4.51 X10 3/ul Low Absolute Lymph 0.72 LAB L100.4500 Normal SMEAR COMMENT SCANNED Result Comment: 1+ ANISOCYTOSIS Performed By: #### L100.0100 #### [facility] [address] [place], [address] BNP,B-TYPE NATRIURETIC Collected: 11/18/2017 Status: F Source: [place] PEPTIDE 2:40 PM [facility] REPOSITORY TYPE CODE TESTS RESULT OUT OF RANGE REFERENCE UNITS LAB L503.6620 0-100 pg/mL High B-TYPE 226.6 MARY JO PEP Performed By: #### L503.6620 #### [facility] [address] [facility] [place], [address] CHEST PA AND LATERAL Observed: 11/18/2017 Status: F Source: [place] 2:26 PM [facility] REPOSITORY [facility] Imaging Services [address] [place] [address] Chest PA and Lateral MR#: [id number] Acct: [id number] Name: GABBI ROLLE Rep #: [id number] : 1945 F 72 From: Aaron Kenyon MD PCP: Sara Zarate NP Status: REG ER Study: Chest PA and Lateral Date of Exam: 11/18/17 Exam# [id number] Ordering Dr: Ariane Lakhani MD STUDY: X-RAY [...] arteries and peripheral pulmonary arteries, consistent with congestive heart failure (CHF). Normal visualized aortic arch and descending thoracic aorta. Normal visualized thoracic spine. Normal visualized ribs, clavicles, and shoulders. There is no demonstrated abnormality of the visualized soft tissue structures of the upper abdomen. RAD/Chest PA and Lateral IMPRESSION: Congestive heart failure. Electronically Signed: Aaron Kenyon MD at 15:32 EDT Tel , Service support , CC: Sara Zarate NP; Ariane Lakhani MD Propeller Mechanic: Signed ONCOLOGY VISIT REPORT Observed: 11/04/2017 Status: F Source: [place] 1:19 PM [facility] REPOSITORY [facility] [address] [place] [address] OFFICE VISIT Date of Service: 11/04/17 1252 MR#: [id number] Acct: [id number] Name: GABBI ROLLE Rep #: [id number] : 1945 From: Halley Khan MD Age/Sex: 72/F Location: D Status: Signed - Problem List (1) Anemia Status: Chronic Qualifiers: Anemia type: iron deficiency Iron deficiency anemia type: unspecified iron deficiency Qualified Code(s): [...] Her anemia has responded in the past 2 oral and [...] pain Musculoskeletal:: Reports: Arthritis - Degenerative joint disease chronic, Arthralgia. Denies: Back pain, Myalgia Skin: [...] for: JVD, bilateral Cardiac:: Regular rate, Regular rhythm, Normal S1, Normal S2. Negative for: Murmur Lungs: Clear to auscultation, Excusion symmetrical. Negative for: Rhonchi, Wheezes Abdomen:: Soft, Non-tender, Non-distended. Negative for: Hepatosplenomegaly Extremities:: Edema - Gross nonpitting chronic lymphedema with skin changes consistent with chronic venous insufficiency, no cellulitis. Negative for: Cyanosis Neurological: Neuro grossly intact Skin:: Negative for: Lesions, Rash, Petechiae, Ecchymosis Psychiatric:: Appropriate affect, Euthymic Lymphatics:: Negative for: Cervical lymphadenopathy, Supraclavicular lymphadenopathy Laboratory Data: Reviewed in EMR Laboratory Tests Hgb 10.3 L [...] with Dr. 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 Patient was transfused with packed red cells in 2017 for severe symptomatic anemia patient required [...] and minor contributor but expected side effect. Worsening of her chronic GI blood loss can be attributed to Coumadin anticoagulation on top of colonic pathology nonetheless the benefit in prevention of cerebrovascular events and absence of serious life-threatening bleeding outweighs the risk. Patient was seen was her impression and plan discussed. Medications: Prescriptions This Visit Medication Instructions Recorded Amoxicillin 500 mg PO UD PRN 05/10/17 Warfarin [Coumadin ([facility]KC)] 5 mg PO DAILY 05/10/17 Primary Care Provider: Sara Zarate Referring Provider: Halley Khan MD 11/04/17 9790 <Electronically signed by Halley Khan MD> Date Halley Steelignluis Signature: Date (if applicable) CC: Sara Zarate; Heron Hobbs CBC W/DIFF, AUTOMATED Collected: 10/28/2017 Status: F Source: [place] 9:53 AM [facility] REPOSITORY Order Comment: CMP,LIPID,FERRITIN,IRON,TIBC FOR ELLIOT Reason for Laboratory Test ANEMIA TYPE CODE TESTS RESULT OUT OF RANGE REFERENCE UNITS LAB L100.1000 4.4-11.0 K/mm3 Normal WBC 6.5 LAB L100.1200 4.2-5.4 M/mm3 Low RBC 2.84 LAB L100.1300 12.0-15.0 g/dl Low HGB 8.2 LAB L100.1400 37-47 % Low HCT 27.9 LAB L100.1500 81-99 fL Normal MCV 98.2 LAB L100.1600 27.0-32.0 pg Normal MCH 28.9 LAB L100.1700 32-36 g/gl Low MCHC 29.4 LAB L100.1810 11.6-14.6 % High RDW CV 19.1 LAB L100.1820 35.1-43.9 fl High RDW SD 66.8 LAB L100.1900 150-450 K/mm3 Normal PLT 250 LAB L100.2000 6.2-12.0 fl Normal MPV 11.5 LAB L100.2100 47-70 % High NEUT% 79.8 LAB L100.2200 19-41 % Low LY% 14.6 LAB L100.2300 0-10 % Normal MONO% 3.8 LAB L100.2400 0-5 % Normal EO% 1.1 LAB L100.2500 0-1 % Normal BASO% 0.5 LAB L100.2550 0.0-0.9 % Normal IM GRAN % 0.200 Result Comment: IG% - Immature Granulocytes (promyelocytes, myelocytes and metamyelocytes) > 1% indicates that a LEFT SHIFT is Present. LAB L100.2620 2.0-7.7 X10 3/uL Absolute Neut Normal 5.2 LAB L100.2720 0.83-4.51 X10 3/ul Absolute Lymph Normal 0.95 LAB L100.5500 ADEQ PLT EST Normal ADEQUATE LAB L100.7300 ANISO Normal 1+ LAB L100.7500 POLYCHROMASIA Normal RARE LAB L100.7600 HYPOCHROMASIA Normal 2+ Performed By: #### L100.0100, L500.4050, L500.4100, L503.6030, L503.6550 #### [facility] [address] [place], [address] COMPREHENSIVE METABOLIC Collected: 10/28/2017 Status: F Source: [facility] 9:53 AM [facility] REPOSITORY Order Comment: CMP,LIPID,FERRITIN,IRON,TIBC FOR CIESA Reason for Laboratory Test ANEMIA TYPE CODE TESTS RESULT OUT OF RANGE REFERENCE UNITS LAB L501.0100 74-106 mg/dL High GLU 111 Result Comment: Fasting Glucose result from 100 to 125 mg/dL suggests IMPAIRED HOMEOSTASIS per A.D.A. criteria. Please note revised GLUCOSE reference range effective 2017. LAB L501.1000 7-18 mg/dL High BUN 33 LAB L501.1100 0.55-1.02 mg/dL High CREAT,SERUM 1.43 Result Comment: The validity of the calculated GFR AND GFRAA in patients over 70 years has not been determined. Clinical correlation is essential. LAB L501.1110 >60 mL/min Low EST GFR 38 Result Comment: Non- GFR Calc LAB L501.1115 >60 mL/min Low EST GFR - AA 46 Result Comment: GFR Calc LAB L501.1300 10-20 RATIO High BUN/CRE 23.1 LAB L501.1500 6.4-8.2 g/dL T Normal PROT 7.1 LAB L501.1800 3.2-5.0 g/dL Normal ALB 3.6 LAB L501.1950 2.2-4.2 g/dL Normal GLOB 3.5 LAB L501.2000 0.9-2.4 RATIO Normal A/G 1.0 LAB L501.2200 8.5-10.1 mg/dL CA Normal 8.8 LAB L501.4100 15-37 U/L Normal AST 19 LAB L501.4305 45-117 U/L Normal ALK P 76 LAB L501.4405 13-56 U/L Normal ALT 17 Result Comment: Please note revised ALT reference range effective 2017. LAB L501.4600 0.20-1.00 mg/dL Normal T BILI 0.50 LAB L501.5300 136-145 mmol/L Normal NA 139 LAB L501.5600 3.5-5.1 mmol/L Normal K 4.3 LAB L501.5900 98-107 mmol/L Normal CL 107 LAB L501.6100 21.0-32.0 mmol/L Normal CO2 24.0 LAB L501.6200 5-15 Normal GAP 8 Performed By: #### L100.0100, L500.4050, L500.4100, L503.6030, L503.6550 #### [facility] [address] [place], [place], [id number] LIPID PROFILE Collected: 10/28/2017 Status: F Source: [place] 9:53 AM [facility] REPOSITORY Order Comment: CMP,LIPID,FERRITIN,IRON,TIBC FOR CIESA Reason for Laboratory Test ANEMIA TYPE CODE TESTS RESULT OUT OF RANGE REFERENCE UNITS LAB L501.4900 200 mg/dL Normal CHOL 101 Result Comment: <200 mg/dL Desirable 200-240 mg/dL Borderline >240 mg/dL High Risk LAB L501.5000 mg/dL Normal TRIG 120 Result Comment: The drugs N-Acetylcysteine and Metamizole may falsely depress this assay. Serum Triglycerides Reference Interval Normal <150 mg/dL Borderline high 150 - 199 mg/dL High 200 - 499 mg/dL Very High > or = 500 mg/dL LAB L501.6400 mg/dL Low HDL 29 Result Comment: The drugs N-Acetylcysteine and Metamizole may falsely depress this assay. Reference Range HDL <40 mg/dL Low HDL Cholesterol HDL >or= 60 mg/dL High HDL Cholesterol LAB L501.6500 0-130 mg/dL Normal LDL 48 LAB L501.6600 5-40 mg/dL Normal VLDL 24 Performed By: #### L100.0100, L500.4050, L500.4100, L503.6030, L503.6550 #### [facility] [address] [place], [place], [address] IRON+IRON BINDING Collected: 10/28/2017 Status: F Source: [facility] 9:53 AM [facility] REPOSITORY Order Comment: CMP,LIPID,FERRITIN,IRON,TIBC FOR CIESA Reason for Laboratory Test ANEMIA TYPE CODE TESTS RESULT OUT OF RANGE REFERENCE UNITS LAB L503.6075 250-450 ug/dL TIBC Normal 449 LAB L503.6150 50-170 ug/dL IRON Normal 95 LAB L503.6250 15.0-55.0 % IRON Normal SATURATION 21.2 Performed By: #### L100.0100, L500.4050, L500.4100, L503.6030, L503.6550 #### [facility] [address] [place], [address] FERRITIN Collected: 10/28/2017 Status: F Source: [facility] 9:53 AM [facility] REPOSITORY Order Comment: CMP,LIPID,FERRITIN,IRON,TIBC FOR CIESA Reason for Laboratory Test ANEMIA TYPE CODE TESTS RESULT OUT OF RANGE REFERENCE UNITS LAB L503.6550 8-252 ng/mL Normal FERRITIN 32 Performed By: #### L100.0100, L500.4050, L500.4100, L503.6030, L503.6550 #### [facility] [address] [place], [place], [address] URINALYSIS, COMPLETE Collected: 10/19/2017 Status: F Source: [facility] 1:54 PM [facility] REPOSITORY Order Comment: How was Urine Obtained? CLEAN CATCH TYPE CODE TESTS RESULT OUT OF RANGE REFERENCE UNITS LAB L400.3000 Yellow COLOR Normal Yellow LAB L400.3050 Clear Normal CLARITY Clear LAB L400.3200 Normal mg/dl Normal GLUCOSE, UR Normal LAB L400.3300 Negative mg/dL Normal BILIRUBIN URINE Negative LAB L400.3400 Negative mg/dl Normal KETONE UR Negative LAB L400.3465 1.002-1.030 Normal SP.GR. DIPSTX 1.010 LAB L400.3550 5.0 - 8.0 pH UR Normal 7.0 LAB L400.3600 Negative mg/dl PROT Normal DIPSTX Negative LAB L400.3700 Normal mg/dl Normal UROBILI Normal LAB L400.3750 Negative Normal NITRITE UR Negative LAB L400.3780 Negative /ul Normal OCCULT BLOOD-UR Negative LAB L400.3800 Negative /ul LEUK Normal ESTERASE Negative LAB L400.4050 0-5 /hpf WBC 0 Normal SEEN LAB L400.4100 0-5 /hpf 0 Normal RBC-UA SEEN LAB L400.4150 5-10 /hpf SQUAM 0 Normal EPI SEEN LAB L400.4300 None Seen /hpf 0 Normal BACTERIA SEEN LAB L400.4350 <or=2+ /hpf 0 Normal MUCUS, URINE SEEN Performed By: #### L400.0001 #### [facility] [address] [place], [place], [address] Observed: 10/19/2017 Status: F Source: [place] CULTURE, URINE 1:54 PM [facility] REPOSITORY Urine Culture Below infection level. ORGANISM 1: Mixed Gram Positive Organisms [place] Count 1000-10,000 Performed By: #### M100.0650 #### [facility] [address] [place], [place], [address] URGENT CARE VISIT Observed: 10/19/2017 Status: F Source: [facility] REPORT 10:55 AM [facility] REPOSITORY [facility] [address] [place] [address] 6 [place], [place] [address] OFFICE VISIT Date of Service: 10/19/17 MR#: [id number] Acct: [id number] Name: GABBI ROLLE Rep #: [id number] : 1945 Provider: Serge DOE Age/Sex: 72/F [place] [facility] Status: Signed Intake Vital Signs10/19/17 Height 5 ft 7 in 10/19/17 Weight: 368 lb 10/19/17 Body Mass Index (BMI) 57.6 Intake Visit Reasons: Urinary tract infection Is patient in pain?: No Allergies No Known Allergies Allergy (Verified 10/19/17 10:27) Medications Cholecalciferol (Vitamin D3) [Vitamin D3] 2,000 unit PO BID 12/09/16 [History Confirmed 10/19/17] Lisinopril [Zestril] 10 mg PO DAILY 12/09/16 [History Confirmed 10/19/17] Magnesium 200 mg PO BID 12/09/16 [History Confirmed 10/19/17] Metoprolol Tartrate [Lopressor (beta long)] 100 mg PO BID 12/09/16 [History Confirmed 10/19/17] Multivitamins,Ther W-Minerals [Multivitamin With Minerals] 1 tab PO DAILY 12/09/16 [History Confirmed 10/19/17] Pravastatin [Pravachol] 80 mg PO QHS 12/09/16 [History Confirmed 10/19/17] Ubidecarenone [Co Q-10] 200 mg PO DAILY 12/09/16 [History Confirmed 10/19/17] Ferrous Sulfate [Iron] 325 mg PO BID 03/01/17 [History Confirmed 10/19/17] Furosemide [Lasix] 20 mg PO DAILY 03/01/17 [History Confirmed 10/19/17] Amoxicillin 500 mg PO UD PRN 05/10/17 [History Confirmed 10/19/17] Warfarin [Coumadin (PBKC)] 5 mg PO DAILY 05/10/17 [History Confirmed 10/19/17] calcium citrate 250 mg tablet 250 mg PO QDAY tab 09/18/17 [History Confirmed 10/19/17] hydralazine 10 mg tablet 10 mg PO TID tab 09/18/17 [History Confirmed 10/19/17] nitrofurantoin monohydrate/macrocrystals 100 mg capsule 1 cap PO Q12H 7 Days #14 cap 10/19/17 [Rx Confirmed 10/19/17] PFSH Medical History Atherosclerotic heart disease of [place] coro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 pectoris (Chronic) Chronic [...] as well as increased frequency starting last night. Patient states that she has had a [...] heart rhythm Gastro GI: No abdominal pain Genitourinary-Female: Positive for burning urination, painful urination and urinary frequency; no pelvic pain, painful intercourse or blood in urine Neuro Neurology: No confusion or behavioral changes Psych Psychiatric: No confusion, No behavioral changes Exam Const General: cooperative, healthy appearing Resp Effort AND Inspection: normal respiratory effort Auscultation: Bilateral: Clear to Auscultation Cardio Palpation: normal PMI Rate: regular rate Rhythm: regular rhythm Heart Sounds: other (3/6 systolic murmur) GI Auscultation: normal bowel sounds General: No CVA tenderness, bimanual renal exam normal bilaterally Neuro General: alert, CN's II-XI intact bilaterally Psych Appearance: grossly normal Mental Status: mental status grossly normal Assessment AND Plan 1. Acute cystitis without hematuria N30.00 Status Acute Plan Encouraged to get plenty of rest, drink lots of clear liquids, and use Tylenol or Ibuprofen (unless contraindicated) for fever and comfort. Patient also educated on other symptomatic management techniques. To be seen in 7-10 days if no improvement; sooner if worsening of symptoms. Patient advised of potential red flags when appropriate report to the ED. Patient verbalized understanding of all the above. This note was generated with [employer] dictation software. It may contain incorrect words, spelling, and punctuation that were not noted in checking the note before signing. Plan Detail Other Orders Orders: Other Medications New: nitrofurantoin monohyd/m-cryst 100 mg administer with a meal/food1 cap PO Q12H 7 days ; swallow whole; do not open, crush, dissolve , or chew Coding Level of Care Code Off vis,est,level 3 Diagnoses Acute cystitis without hematuria N30.00 Urinary tract infection type: acute cystitis Hematuria presence: without hematuria 10/19/17 1055 <Electronically signed by Serge DOE> Date Serge DOE Cosigner Signature: Date (if applicable) CC: CARDIOLOGY VISIT Observed: 09/20/2017 Status: F Source: [facility] REPORT 3:31 PM [facility] REPOSITORY [facility] [address] [place] [address] OFFICE VISIT Date of Service: 09/18/17 MR#: [id number] Acct: [id number] Name: GABBI ROLLE Rep #: [id number] : 1945 Provider: DANIELE Figueredo Age/Sex: 72/F Location: [facility] [place] Status: Signed HPI 4 M FU: Details: GABBI ROLLE, is a 72 F who presents to the office today for a cardiovascular outpatient follow-up. Patient has a history of chronic persistent atrial fibrillation, valvular heart disease with mitral valve regurgitation and aortic valve stenosis, minimal coronary artery disease, pulmonary hypertension, and obstructive sleep apnea. Pt. denies chest, arm, jaw, or neck discomfort. Her exercise tolerance is stable though very minimal. Pt. denies symptoms of CHF, palpitations, lightheadedness, dizziness, near syncope, or syncopal episodes. Pt. denies edema or claudication issues. Pt. denies orthopnea, PND, fever, chills, blood in urine, or myalgia. Pt. states SOB with exertion. She is working with Dr. Nelson on [...] stool and gets Iron transfusions. Heart catheterization from March 2017 shows severely elevated right heart pressures, minimal coronary artery disease, severe systemic hypertension, severe pulmonary hypertension, and an ejection fraction of 65%. Echocardiogram from November 2016 showed an estimated ejection fraction 55%, RVSP of 54 mmHg, moderate tricuspid valve insufficiency, and an aortic valve area of 1.3 cm . Intake Vital Signs09/18/17 Height 5 ft 7.5 in 09/18/17 Weight: 364 lb 09/18/17 Body Mass Index (BMI) 56.1 09/18/17 Blood Pressure 148/88 09/18/17 Blood Pressure Location Lt radial Intake Visit Reasons: 4 M FU Office Correspondent Required: No Accompanied by: None Is patient in pain?: No Allergies No Known Allergies Allergy (Verified 09/18/17 10:31) Medications Budesonide/Formoterol 160/4.5 [Symbicort 160/4.5 Mcg Inhaler (SP)] 2 puff INHALATION DAILY 12/09/16 [History Confirmed 09/06/17] Cholecalciferol (Vitamin D3) [Vitamin D3] 2,000 unit PO BID 12/09/16 [History Confirmed 09/06/17] Febuxostat [Uloric] 80 mg PO QODAY 12/09/16 [History Confirmed 09/06/17] Lisinopril [Zestril] 10 mg PO DAILY 12/09/16 [History Confirmed 09/06/17] Magnesium 200 mg PO BID 12/09/16 [History Confirmed 09/06/17] Metoprolol Tartrate [Lopressor (beta long)] 100 mg PO BID 12/09/16 [History Confirmed 09/06/17] Multivitamins,Ther W-Minerals [Multivitamin With Minerals] 1 tab PO DAILY 12/09/16 [History Confirmed 09/06/17] Pravastatin [Pravachol] 80 mg PO QHS 12/09/16 [History Confirmed 09/06/17] Ropinirole HCl [Requip] 0.25 mg PO DAILY 12/09/16 [History Confirmed 09/06/17] Ubidecarenone [Co Q-10] 200 mg PO DAILY 12/09/16 [History Confirmed 09/06/17] Nitroglycerin [Nitrostat] 0.4 mg SUBLINGUAL Q5M PRN #10 tab [...] mg PO QDAY tab 09/18/17 [History Confirmed 09/18/17] hydralazine 10 mg tablet 10 mg PO TID tab 09/18/17 [History Confirmed 09/18/17] Ejection fraction %: 55 to 59 PFSH Medical History Atherosclerotic heart disease of [place] coro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 pectoris (Chronic) Chronic [...] blood transfusion (Acute) History of pneumonia (Acute) Liver [...] Const: Positive for fatigue; negative for weakness, body ache, fever(s) or chills ENT ENT: Negative for dizziness Cardio Chest Pain: No Palpitations: Positive for No Edema: Bilateral (unchanged) Muscle aches with walking: None Resp Respiratory: Negative for SOB with activity, SOB at rest, SOB orthopnea\SOB lying down or paroxysmal nocturnal dyspnea GI GI: Positive for bright, red blood in stools; negative nausea, black,tarry stools or vomiting blood/hematemesis : Negative for hematuria or frequent nighttime urination/ nocturia Musc Musc: Negative for muscle aches/ myalgia Neuro Neuro: Negative for weakness, Negative for dizziness, Negative for lightheadedness, Negative for near syncope, Negative for syncope, Negative for orthostatic symptoms Endo Endo: Positive for fatigue Cardiology Exam Const Appearance: cooperative, healthy appearing, comfortable and no acute distress Orientation: alert, awake and oriented x3 Head Head: normal to inspection Mouth: oral mucosae normal Neck Neck: no JVD and normal visual inspection Carotids: normal carotid upstroke Chest Chest inspection: normal inspection of the chest and normal respiratory effort Auscultation: Bilateral: Clear to Auscultation Cardio Rate: regular rate Rhythm: regular rhythm Heart sounds: murmur (Right Sternal border systolic); negative rub or gallop Murmur: Grade 3/6 GI GI: normal to inspection Neuro General: alert, awake, oriented x3 and CN's II-XI intact bilaterally Skin Skin: no rashes or lesions noted Extremities Pulses: Normal: Right Posterior Tibial Pulse, Left Posterior Tibial Pulse, Right Radial Pulse, Left Radial Pulse Lower Extremity Edema: None: Bilateral Psych Psychological: normal affect Assessment AND Plan 1. Atherosclerosis of [place] coronary artery of [place] heart without angina pectoris I25.10 [facility]: 07/30/2006; 04/10/17 ROSALIND King Patient's most recent heart catheterization is noted above. Patient denies any chest pain, arm pain, jaw pain, neck pain, worsening shortness of breath, or fatigue suggestive of angina at this time. We will continue to monitor this. We will not make any medication regimen changes and will continue risk factor modification. 2. Chronic atrial fibrillation I48.2 ROSALIND King Patient's heart rate is well-controlled today in office. We will continue to monitor this. Patient will continue current medications which include beta- long and Coumadin therapy. 3. Iron deficiency anemia, unspecified iron deficiency anemia type D50.9 ROSALIND King Patient will [...] in office. In an attempt to better control her blood pressure and possibly improve her pulmonary hypertension we will increase her hydralazine to 20 mg 3 times a day. She has several upcoming doctor's office visits appointment in which her blood pressure will be monitored. If 20 mg shows improvement in her blood pressure and no secondary side effects, we can send a new prescription for 25 mg 3 times daily. 7. Mixed hyperlipidemia E78.2 ROSALIND King Patient states having upcoming appointment with primary care physician and will inquire if cholesterol will be drawn at that time. She was reminded that if cholesterol is not drawn by primary care physician to contact our office so that it can be further evaluated. Patient will continue with current cholesterol medication. Plan Detail Other Medications Discontinued: acetaminophen Discontinued Reason: Pt no 650 mg (2 [...] generated using a voice recognition system and there may be incorrect words, spelling or punctuation that were not noted when reviewing the office note prior to saving. Follow Up 6 Months (FRUIT OR NUT PICKER) Coding Level of Care Code Off vis,est,level 3 Diagnoses Atherosclerosis of [place] coronary artery of [place] heart without angina pectoris I25.10 [place] vs. transplanted heart: [place] heart Chronic atrial fibrillation I48.2 Iron deficiency anemia, unspecified iron deficiency anemia type D50.9 Anemia type: iron deficiency Iron deficiency anemia type: unspecified iron deficiency Other secondary pulmonary hypertension I27.29 Nonrheumatic aortic (valve) stenosis I35.0 Essential hypertension I10 Hypertension type: essential hypertension Mixed hyperlipidemia E78.2 Hyperlipidemia type: mixed hyperlipidemia Coding Level of Care Code Off vis,est,level 3 Diagnoses Atherosclerosis of [place] coronary artery of [place] heart without angina pectoris I25.10 [place] vs. transplanted heart: [place] heart Chronic atrial fibrillation I48.2 Iron deficiency anemia, unspecified iron deficiency anemia type D50.9 Anemia type: iron deficiency Iron deficiency anemia type: unspecified iron deficiency Other secondary pulmonary hypertension I27.29 Nonrheumatic aortic (valve) stenosis I35.0 Essential hypertension I10 Hypertension type: essential hypertension Mixed hyperlipidemia E78.2 Hyperlipidemia type: mixed hyperlipidemia 09/18/17 1515 <Electronically signed by Lazaro GARCIAC> Date Lazaro Figueredo OCCUPATIONAL HYGIENIST-C 09/20/17 1531<Electronically signed by Niraj Raymundo MD> Cosigner Signature: Date (if applicable) Niraj Raymundo MD CC: Sara Zarate NP ALLERGIES ALLERGIES DATE TYPE / CODE NAME / CODE REACTION SEVERITY SOURCE 09/04/2018 Drug No Known Unknown [facility] All[facility]/416 Allergies/U98022 [facility] 377790(SNOM 0388(RXNORM) Repository ED CT) Drug NO KNOWN [facility] Class/96536 ALLERGIES Main [place] 1003(SNOMED Repository CT) ENCOUNTERS ENCOUNTERS ADMIT/DISCHARGE ACCOUNT NUMBER ADMITTING ENCOUNTER LOCATION SOURCE CLASS 09/10/2018 [id number] Ambulatory Building:[facility] [place] Practices Repository 09/04/2018 [id number] Ambulatory [facility] ding:ONC Repository 09/04/2018 [id number] Ambulatory BMSBuilding: [facility] BMS.CF[facility] Repository 09/04/2018/09/04/19 [id number] LAVONNEANDREW, SARA Ambulatory [address] Repository 08/05/2018 [id number] Ambulatory [facility] ding:OPBI Repository 07/31/2018 [id number] Ambulatory BMSBuilding: [place] BMS.CF.[facility] Repository 07/03/2018 [id number] Ambulatory BMSBuilding: [place] BMS.CF.[facility] Repository 07/01/2018/07/03/20 [id number] Ambulatory [address] Main [place] Repository 07/01/2018/07/01/20 [id number] Ambulatory [address] [place] Repository 07/01/2018/07/02/20 [id number] Ambulatory [address] [place] Repository 07/01/2018/07/01/20 [id number] Ambulatory [address] [place] Repository 07/01/2018/07/03/20 [id number] Ambulatory [address] [place] Repository 06/27/2018/06/27/20 [id number] Ambulatory [address] [place] Repository 06/27/2018/07/03/20 [id number] Ambulatory [address] [place] Repository 06/27/2018/06/27/20 [id number] Ambulatory [address] [place] Repository 06/27/2018/06/27/20 [id number] Ambulatory [address] [place] Repository 06/27/2018/06/27/20 [id number] Ambulatory [address] [place] Repository 06/27/2018/06/27/20 [id number] Ambulatory [address] [place] Repository 06/27/2018/06/27/20 [id number] Ambulatory [address] Repository 06/22/2018/06/22/20 [id number] Ambulatory BMSBuilding: [place] 18 BMS.[facility] Repository 06/02/2018 [id number] Ambulatory [facility] ding:LAB.FUT Repository URE 05/27/2018 [id number] Ambulatory BMSBuilding: [place] BMS.CF.[facility] Repository 05/26/2018/05/26/20 [id number] Ambulatory BMSBuilding: [place] 18 BMS.[facility] Repository 05/23/2018 [id number] Ambulatory BMSBuilding: [place] BMS.CF.[facility] Repository 05/23/2018 [id number] Ambulatory [facility] ding:[facility] Repository 05/16/2018/05/16/20 [id number] Ambulatory BMSBuilding: [place] 18 BMS.[facility] Repository 05/02/2018 [id number] Ambulatory [facility] ding:[facility] Repository 05/02/2018 [id number] Ambulatory BMSBuilding: [facility] Repository 04/29/2018 [id number] Ambulatory BMSBuilding: [place] BMS.CF.[facility] Repository 04/29/2018/04/29/20 [id number] Ambulatory BMSBuilding: [place] 18 BMS.[facility] Repository 04/24/2018 [id number] Ambulatory [facility] ding:LAB.FUT Repository URE 04/02/2018 [id number] Ambulatory BMSBuilding: [place] BMS.CF.[facility] Repository 03/18/2018 [id number] Ambulatory BMSBuilding: [place] BMS.[facility] Repository 03/16/2018/03/19/20 [id number] ONUIISAIAS, Inpatient ABuilding:ME Alvarez 18 JOAN Encounter 4ERoom: [address]: [facility] Repository 03/05/2018 [id number] Ambulatory BMSBuilding: [place] BMS.CF.[facility] Repository 02/23/2018/02/28/20 [id number] BOUTROS MD, Inpatient ABuilding:NEELIMA Doty NIHAD Encounter CURoom: Health 3713Bed: [facility] Repository 02/23/2018/02/24/20 [id number] Emergency [address] ding:ED Repository 02/07/2018 [id number] Ambulatory BMSBuilding: [place] BMS.[facility] Repository 02/04/2018/02/11/20 [id number] BOUSERHAL Inpatient ABuilding:ME Maxine oDty MD, EWELINA Encounter 6NRoom: Health 6630Bed: [facility] Repository 02/04/2018/02/05/20 [id number] Emergency [address] ding:ED Repository 01/30/2018 [id number] Ambulatory [facility] ding:CCN Repository 01/29/2018 [id number] Ambulatory BMSBuilding: [place] BMS.CF.[facility] Repository 01/22/2018 [id number] Ambulatory [facility] ding:US Repository 01/22/2018 [id number] Ambulatory [facility] ding:LAB.FUT Repository URE 01/21/2018/01/28/20 [id number] White, Inpatient [place] [facility] ding:PCURoom Repository : GFA320Suv: 1 01/21/2018 [id number] White, Ambulatory BMSBuilding: [place] Nohemi BMS.[facility] Repository 01/21/2018/01/28/20 [id number] Ambulatory BMSBuilding: [place] 18 [facility] Repository 01/21/2018/01/28/20 [id number] Ambulatory BMSBuilding: [place] 18 [facility] Repository 01/21/2018/01/28/20 [id number] Ambulatory BMSBuilding: [place] [facility] Repository 01/21/2018/01/28/20 [id number] Ambulatory BMSBuilding: [place] [facility] Repository 01/21/2018/01/28/20 [id number] Ambulatory BMSBuilding: [place] [facility] Repository 01/21/2018/01/28/20 [id number] Ambulatory BMSBuilding: [place] [facility] Repository 01/21/2018/01/28/20 [id number] Ambulatory BMSBuilding: [place] [facility] Repository 01/15/2018/01/16/20 [id number] Ambulatory BMSBuilding: [place] 18 BMS.[facility] Repository 01/08/2018/01/09/20 [id number] Ambulatory [address] ding:SDC Repository 01/08/2018 [id number] Ambulatory BMSBuilding: [place] BMS.CF.[facility] Repository 01/03/2018/01/04/20 [id number] Ambulatory BMSBuilding: [place] 18 BMS.[facility] Repository 01/01/2018 [id number] Ambulatory BMSBuilding: [place] BMS.CF.[facility] Repository 12/23/2017 [id number] Ambulatory [facility] ding:MTRAD Repository 12/05/2017 [id number] Ambulatory BMSBuilding: [place] BMS.CF.[facility] Repository 11/30/2017/12/03/19 [id number] Ambulatory BMSBuilding: [place] [address] [place] [address] Repository 11/29/2017/12/03/19 [id number] White, Inpatient [place] ding:PCURoom Repository : LHS708Lls: 1 11/29/2017 [id number] White, Ambulatory BMSBuilding: [place] Nohemi BMS.[facility] Repository 11/29/2017 [id number] White, Ambulatory BMSBuilding: [place] Nohemi BMS.[facility] Repository 11/29/2017 [id number] White, Ambulatory BMSBuilding: [place] Nohemi BMS.[facility] Repository 11/29/2017 [id number] White, Ambulatory BMSBuilding: [place] Nohemi BMS.[facility] Repository 11/29/2017 [id number] White, Ambulatory BMSBuilding: [place] Nohemi BMS.[facility] Repository 11/29/2017/12/03/19 [id number] Ambulatory BMSBuilding: [place] [facility] Repository 11/26/2017/11/27/19 [id number] SARA ZARATE Ambulatory Corey Frances 18 [facility] Repository 11/18/2017/11/19/19 [id number] Emergency [address] ding:ED Repository 11/04/2017 [id number] Ambulatory BMSBuilding: [place] BMS.[facility] Repository 10/28/2017 [id number] Ambulatory [facility] ding:LAB Repository 10/19/2017 [id number] Ambulatory [facility] ding:LABSPEC Repository 10/19/2017/10/20/19 [id number] Ambulatory BMSBuilding: [place] 18 BMS.[facility] Repository 09/18/2017/09/18/19 [id number] Ambulatory BMSBuilding: [place] 18 BMS.[facility] Repository 09/18/2017 [id number] Ambulatory BMSBuilding: [place] BMS.[facility] Repository FUNCTIONAL STATUS FUNCTIONAL STATUS No Functional Status Records FoundEQUIPMENT EQUIPMENT No Equipment Records FoundPAYERS PAYERS ENCOUNTER GUARANTOR PAYER SUBSCRIBER SOURCE 09/10/2018 Gabbi Mc Primary Gabbi E OHIP Practices MillerDOB: Insurance:MedicareSeth Los IndiosDOB: Repository [id number] cy Number: [id number] CR [id number] [address] [place] [address], Date:0677-20-17Qpwp [address] [place] [address] 7[address]Nwi: Name:[facility] [address]Eud: 232324Gjyivrtm, [place] (HP) 15991QW: (090) (HP) [phone] 09/10/2018 Secondary Gabbi E OHIP Practices [facility]leeann MillerDOB: Repository cy Number: [id number] 9 CR Date:0728-66-90Ucku [address] [place] [address], Name:[place] [address]Jco: [id number], [place] [phone]: ([phone]) (TI) [phone] 09/10/2018 Tertiary Gabbi E OHIP Practices Insurance:Summa MillerDOB: Repository CarePolicy Number: [id number] 9 CR Date:2007-08-19 - [address] [place] [address], 0700-24-79Ppkw [place] [address]Cbp: Name:[facility] HealthcaremeghanWHITETAIL, [place] [address]OO: () 09/04/2018 UMER Faulkner Primary GABBI E [place] [id number] CR Insurance:MEDICARE MILLERDOB: Community [address] [place] [address], PART A BPolicy Number: [id number] Navajo Medical Center [address]Wyq: [id number] Repository Date:2008-04-19 () 09/04/2018 Secondary GABBI E [place] Insurance:AARPPolicy MILLERDOB: Community Number: [id number] Hospital [id number] Repository Date:1479-90-26Pb [address]Jgfndbs, [place] [address]NE: 09/04/2018 Tertiary NOT GIVENUNK [place] Insurance:SELF [facility] Number: Effective Repository Date:2017-05-08 09/04/2018 UMER Faulkner Primary GABBI E [place] [id number] CR Insurance:MEDICARE MILLERDOB: [address], PART A BPolicy Number: [id number] Navajo Medical Center [address]Mty: [id number] Repository Date:2008-04-19 () 09/04/2018 Secondary GABBI E [place] Insurance:AARPPolicy MILLERDOB: Community Number: [id number] Hospital [id number] Repository Date:9536-42-64Tn [address]qguaeg, [place] [address]WJ: 09/04/2018 Tertiary NOT GIVENUNK [place] Insurance:SELF PAY [facility] Number: Effective Repository Date:2018-09-04 09/04/2018 GABBI E Primary Insurance:500 GABBI Frances MILLERDOB: MEDICARE MILLERDOB: [facility] [id number] [facility] [id number] Hospital CR Number: [address] Repository [address] [place] [address], [id number] Date:Plan Name:[facility] [id number]: () 09/04/2018 Secondary GABBI Frances Insurance:AARP MILLERDOB: [facility] [id number] Hospital Number: [address] Repository [id number] [address] [place] [address], Date: Nh [id number] 08/05/2018 UMER Faulkner Primary GABBI Taylor [id number] CR Insurance:MEDICARE MILLERDOB: [address], PART A BPolicy Number: [id number] Navajo Medical Center [address]Htd: [id number] Repository Date:2018-07-14 () 08/05/2018 Secondary GABBI E [place] Insurance:AARPPolicy MILLERDOB: Community Number: [id number] Hospital [id number] Repository Date:4996-79-69Id [address]Cksbuaf, [place] [address]VD: 08/05/2018 Tertiary NOT GIVENUNK [place] Insurance:SELF PAY [facility] Hospital Number: Effective Repository Date:2018-07-14 07/31/2018 UMER Faulkner Primary GABBI Taylor [id number] CR Insurance:MEDICARE MILLERDOB: [address], PART A BPolicy Number: [id number] Navajo Medical Center [address]Dsc: [id number] Repository Date:2008-04-19 () 07/31/2018 Secondary GABBI E [place] Insurance:AARPPolicy MILLERDOB: Community Number: [id number] Hospital [id number] Repository Date:5174-42-22Mn [place] [address], [place] [address]ZV: 07/31/2018 Tertiary NOT GIVENUNK [place] Insurance:SELF PAY [facility] Number: Effective Repository Date:2018-07-31 07/03/2018 UMER Faulkner Primary GABBI Taylor [id number] CR Insurance:MEDICARE MILLERDOB: Community [address] [place] [address], PART A [facility] Number: [id number] Navajo Medical Center [address]Nce: [id number] Repository Date:2008-04-19 () 07/03/2018 Secondary GABBI Mc [place] Insurance:AARPPolicy MILLERDOB: Community Number: [id number] Hospital [id number] Repository Date:9605-00-94Bc [place] [address], [place] [address]PH: 07/03/2018 Tertiary NOT GIVENUNK [place] Insurance:SELF [facility]Y [facility] Number: Effective Repository Date:2018-07-03 06/22/2018 UMER Faulkner Primary GABBI Taylor [id number] CR Insurance:MEDICARE MILLERDOB: [address], PART A [facility] Number: [id number] Navajo Medical Center [address]Jlg: [id number] Repository Date:2018-06-22 () 06/22/2018 Secondary GABBI Mc [place] Insurance:AARPPolicy MILLERDOB: Community Number: [id number] Hospital [id number] Repository Date:0670-37-80Xu [address]wzhiyi, [place] [address]JW: 06/22/2018 Tertiary NOT GIVENUNK [place] Insurance:SELF PAY [facility] Hospital Number: Effective Repository Date:2018-06-22 06/02/2018 UMER Faulkner Primary GABBI Taylor [id number] CR Insurance:MEDICARE MILLERDOB: [address], PART A [facility] Number: [id number] Navajo Medical Center [address]Oyy: [id number] Repository Date:2018-06-02 () 06/02/2018 Secondary GABBI E [place] Insurance:AARPPolicy MILLERDOB: Community Number: [id number] Hospital [id number] Repository Date:7568-82-97Ka [address]Wwkhkam, [place] [address]QD: 06/02/2018 Tertiary NOT GIVENUNK [place] Insurance:SELF PAY [facility] Number: Effective Repository Date:2018-06-02 05/27/2018 UMER Faulkner Primary GABBI Taylor [id number] CR Insurance:MEDICARE MILLERDOB: Community [address] [place] [address], PART A BPolicy Number: [id number] Navajo Medical Center [address]Pro: [id number] Repository Date:2008-04-19 () 05/27/2018 Secondary GABBI E [place] Insurance:AARPPolicy MILLERDOB: Community Number: [id number] Hospital [id number] Repository Date:4128-23-15Vv [address]Ibxcjoy, [place] [address]VG: 05/27/2018 Tertiary NOT GIVENUNK [place] Insurance:SELF PAY [facility] Number: Effective Repository Date:2018-05-27 05/26/2018 UMER Faulkner Primary GABBI Taylor [id number] CR Insurance:MEDICARE MILLERDOB: [address], PART A BPolicy Number: [id number] Navajo Medical Center [address]Sgt: [id number] Repository Date:2018-05-26 () 05/26/2018 Secondary GABBI E [place] Insurance:AARPPolicy MILLERDOB: Community Number: [id number] Hospital [id number] Repository Date:4156-58-96Gq [place] [address], [place] [address]KG: 05/26/2018 Tertiary NOT GIVENUNK [place] Insurance:SELF PAY [facility] Number: Effective Repository Date:2018-05-26 05/23/2018 UMER Faulkner Primary GABBI Taylor [id number] CR Insurance:MEDICARE MILLERDOB: [address], PART A BPolicy Number: [id number] Navajo Medical Center [address]Krt: [id number] Repository Date:2018-05-16 () 05/23/2018 Secondary GABBI E [place] Insurance:AARPPolicy MILLERDOB: Community Number: [id number] Hospital [id number] Repository Date:6255-54-90Zn [place] [address]Rbpvzmd, [place] [address]QV: 05/23/2018 Tertiary NOT GIVENUNK [place] Insurance:SELF PAY [facility] Number: Effective Repository Date:2018-05-23 05/23/2018 UMER Faulkner Primary GABBI E [place] [id number] CR Insurance:MEDICARE MILLERDOB: [address], PART A BPolicy Number: [id number] Navajo Medical Center [address]Pjl: [id number] Repository Date:2018-05-16 () 05/23/2018 Secondary GABBI E [place] Insurance:AARPPolicy MILLERDOB: Community Number: [id number] Hospital [id number] Repository Date:9006-44-39Yw [place] [address]Q[place]gm, [place] [address]GQ: 05/23/2018 Tertiary NOT GIVENUNK [place] Insurance:SELF PAY [facility] Number: Effective Repository Date:2018-05-16 05/16/2018 Umer Faulkner Primary GABBI E [place] [id number] CR Insurance:MEDICARE MILLERDOB: [address], PART A BPolicy Number: [id number] Navajo Medical Center [address]Giw: [id number] Repository Date:2018-05-08 () 05/16/2018 Secondary GABBI E [place] Insurance:AARPPolicy MILLERDOB: Community Number: [id number] Hospital [id number] Repository Date:7300-15-71Tm [place] [address], [place] [address]KF: 05/16/2018 Tertiary NOT GIVENUNK [place] Insurance:SELF PAY [facility] Number: Effective Repository Date:2018-05-16 05/02/2018 Umer Faulkner Primary GABBI Mc [place] [id number] CR Insurance:MEDICARE MILLERDOB: Community [address] [place] [address], PART A BPolicy Number: [id number] Navajo Medical Center [address]Jxy: [id number] Repository Date:2018-04-29 () 05/02/2018 Secondary GABBI E [place] Insurance:AARPPolicy MILLERDOB: Community Number: [id number] Hospital [id number] Repository Date:2094-35-39Wh [address]Ahtatkg, [place] [address]NU: 05/02/2018 Tertiary NOT GIVENUNK [place] Insurance:SELF PAY [facility] Number: Effective Repository Date:2018-04-29 05/02/2018 UMER Faulkner Primary GABBI E [place] [id number] CR Insurance:MEDICARE MILLERDOB: Community [address] [place] [address], PART A BPolicy Number: [id number] Navajo Medical Center [address]Dlt: [id number] Repository Date:2018-04-29 () 05/02/2018 Secondary GABBI E [place] Insurance:AARPPolicy MILLERDOB: Community Number: [id number] Hospital [id number] Repository Date:1475-21-20Yl [address]Ggnalbw, [place] [address]IO: 05/02/2018 Tertiary NOT GIVENUNK [place] Insurance:SELF PAY [facility] Number: Effective Repository Date:2018-05-02 04/29/2018 Umer Faulkner Primary GABBI E [place] [id number] CR Insurance:MEDICARE MILLERDOB: Community [address] [place] [address], PART A BPolicy Number: [id number] Navajo Medical Center 18286Djs: [id number] Repository Date:2008-04-19 () 04/29/2018 Secondary GABBI E [place] Insurance:AARPPolicy MILLERDOB: Community Number: [id number] Hospital [id number] Repository Date:2569-19-14Aj [address]Qvqyeem, [place] [address]ZI: 04/29/2018 Tertiary NOT GIVENUNK [place] Insurance:SELF PAY [facility] Number: Effective Repository Date:2018-04-29 04/29/2018 Umer Faulkner Primary GABBI Mc [place] [id number] CR Insurance:MEDICARE MILLERDOB: Community [address] [place] [address], PART A BPolicy Number: [id number] Navajo Medical Center 59182Bwx: [id number] Repository Date:2018-03-24 () 04/29/2018 Secondary GABBI E [place] Insurance:AARPPolicy MILLERDOB: Community Number: [id number] Hospital [id number] Repository Date:8042-99-06Ug [address]Dhvkpqm, [place] [address]UM: 04/29/2018 Tertiary NOT GIVENUNK [place] Insurance:SELF PAY [facility] Hospital Number: Effective Repository Date:2018-04-29 04/24/2018 Umer Faulkner Primary GABBI Mc [place] [id number] CR Insurance:MEDICARE MILLERDOB: Community [address] [place] [address], PART A BPolicy Number: [id number] Navajo Medical Center 538[address]Qko: [id number] Repository Date:2018-04-24 () 04/24/2018 Secondary GABBI E [place] Insurance:AARPPolicy MILLERDOB: Community Number: [id number] Hospital [id number] Repository Date:9338-92-33Bx [address]otpx, [place] [address]YB: 04/24/2018 Tertiary NOT GIVENUNK [place] Insurance:SELF PAY [facility] Number: Effective Repository Date:2018-04-24 04/02/2018 Umer Faulkner Primary GABBI Mc [place] [id number] CR Insurance:MEDICARE MILLERDOB: Community [address] [place] [address], PART A BPolicy Number: [id number] Navajo Medical Center [address]Dag: [id number] Repository Date:2008-04-19 () 04/02/2018 Secondary GABBI E [place] Insurance:AARPPolicy MILLERDOB: Community Number: [id number] Hospital [id number] Repository Date:1263-26-15Hm [address]Akzsofx, [place] [address]MO: 04/02/2018 Tertiary NOT GIVENUNK [place] Insurance:SELF [facility]Y [facility] Number: Effective Repository Date:2018-04-02 03/18/2018 Umer Faulkner Primary GABBI E [place] [id number] CR Insurance:MEDICARE MILLERDOB: [address], PART A BPolicy Number: [id number] Navajo Medical Center [address]Oty: [id number] Repository Date:2017-09-18 () 03/18/2018 Secondary GABBI E [place] Insurance:AARPPolicy MILLERDOB: Community Number: [id number] Hospital [id number] Repository Date:0724-92-83Fz [address]Zqvqumf, [place] [address]LG: 03/18/2018 Tertiary NOT GIVENUNK [place] Insurance:SELF PAY [facility] Number: Effective Repository Date:2017-09-18 03/16/2018 GABBI E Primary GABBI [facility] MILLERDOB: Insurance:MEDICARE MILLERDOB: [facility] [id number] PART APolicy Number: [id number] Repository [facility] [id number] [address], Date:2018-03-[address] [place] [address]Nel: 9382-43-50Lzdp [place] [address]Mxr: Name:[facility] Code () [address] Box ()Tel: (186) [phone], [place] [address] () [address]WP: 03/16/2018 Secondary GABBI [facility] Insurance:MEDICARE MILLERDOB: Foundation PART BPolicy Number: [id number] Repository [id number] 9 [facility] Date:2018-03-16 - [address] [place] [address], 7559-41-09Byrn [place] [address]Ydo: Name:[facility] Administrators LLCPO ()Tel: (000) [address]Jqyfanxwa, [place] 000[address] (WP) [address]JV: 03/16/2018 Tertiary GABBI Alexandro [facility] Insurance:AARP NAPLES MILLERDOB: [facility] HEALTH-SECONDARY [id number] Repository ONLYPolicy Number: 9 [facility] [id number] 245[place], Date:2018-03-16 - [place] [address]Efh: 9340-42-10Hyoz Name:UNATTENDED GROUND SENSOR SPECIALIST Box ()Tel: (000) [phone], [place] 000[address] () [address]CO: 03/05/2018 Umer Faulkner Primary GABBI E [place] [id number] CR Insurance:MEDICARE MILLERDOB: [address], PART A BPolicy Number: [id number] Navajo Medical Center [address]Ybj: [id number] Repository Date:2008-04-19 () 03/05/2018 Secondary GABBI E [place] [facility]Fa[facility] HospitalB: [facility] Number: [id number] Hospital [id number] Repository Date:7225-87-02Cu [address]Swrqraa, [place] [address]KI: 03/05/2018 Tertiary NOT GIVENUNK [place] Insurance:SELF PAY [facility] Number: Effective Repository Date:2018-03-05 02/23/2018 GABBI E Primary GABBI E [facility] AUSTINDOB: Insurance:MEDICARE MILLERDOB: [facility] [id number] PART APolicy Number: [id number] Repository [facility] [address] [id number] [address], Date:2018-02-[address] [place] [address]Khk: 3771-72-32Pefc [place] [address]Qhn: Name:MMail Code AG (HP) [address] Box (HP)Tel: (000 [address]Ufpgpgwr, [place] 000[address] (WP) [address]CH: 02/23/2018 Secondary GABBI [facility] Insurance:MEDICARE MILLERDOB: [facility] PART BPolicy Number: [id number] Repository [id number] [address] [facility] [address] Date:2018-02-23 - [address] [place] [address], 2128-85-17Iqkp [place] [address]Wvr: Name:[facility] Administrators LLCPO (HP)Tel: (000) [address] [address]Guarxnhsi, [place] 000-[address] (WP) [address]HV: 02/23/2018 Tertiary GABBI [facility] Insurance:AARP NAPLES MILLERDOB: [facility] HEALTH-SECONDARY [id number] Repository ONLYPolicy Number: 9 [facility] [id number] 245[place], Date:2018-02-23 - [place] [address]Oey: 9662-46-09Dzwq Name:UNATTENDED GROUND SENSOR SPECIALIST Box ()Tel: 000) 626331Nksdcqo [place] 000-0000 (WP) [address]MN: 02/23/2018 Umer Faulkner Primary GABBI E [place] [id number] CR Insurance:MEDICARE [facility]: [address], PART A BPolicy Number: [id number] Navajo Medical Center [address]Jcz: [id number] Repository Date:2018-02-23 () 02/23/2018 Secondary GABBI E [place] Insurance:AARolicSelect [facility] Specialty Hospital - [facility]ullB: [facility] Number: [id number] Hospital [id number] Repository Date:9638-18-93Ea [address]Znllxbt, [place] [address]JS: 02/23/2018 Tertiary NOT GIVENUNK [place] Insurance:SELF PAY [facility] Hospital Number: Effective Repository Date:2018-02-23 02/07/2018 Umer Faulkner Primary GABBI Mc [place] [id number] CR Insurance:MEDICARE MILLERDOB: [address], [facility] A BPolicy Number: [id number] Navajo Medical Center [address]Dgf: [id number] Repository Date:2018-02-03 (HP) 02/07/2018 Secondary GABBI E [place] Insurance:AARPPolicy MILLERDOB: Community Number: [id number] Hospital [id number] Repository Date:9113-84-62Zw [address]Opvjzwx, [place] [address]ES: 02/07/2018 [facility]ertiary [facility] [place] Insurance:SELF [facility]Y [facility] Number: Effective Repository Date:2018-02-03 02/04/2018 GABBI E Primary GABBI E [facility] MILLERDOB: Insurance:MEDICARE MILLERDOB: [facility] PART APolicy Number: [id number] Repository [facility] [id number] [address], Date:2018-02-[address] [place] [address]Rzf: 4467-27-17[place]up [place] [address]Vfr: Name:[facility] Hospitalil Code () [address]PO Box (HP)Tel: (000) [phone], [place] 000-0000 (WP) [address]WV: 02/04/2018 Secondary GABBI [facility] Insurance:MEDICARE MILLERDOB: Foundation PART BPolicy Number: [id number] Repository [id number] [address] [facility] [address] Date:2018-02-[address] [place] [address] 2910-32-52Opim [place] [address]Pfv: Name:[facility] Administrators LLCPO (HP)Tel: (000) [address]XbnrzexjxJBPHH, [place] 000-0000 (WP) [address]AC: 02/04/2018 Tertiary GABBI [facility] MILLERDOB: [facility] [id number] Repository ONLYPolicy Number: [address] [facility] [address] [id number] [address] [place] [address], Date:2018-02-04 - [place] [address]Skl: 4019-80-10Ywqm Name:UNATTENDED GROUND SENSOR SPECIALIST Box (HP)Tel: (863) [phone], [place] 000-0000 ) [address]WP: 02/04/2018 Umer Faulkner Primary GABBI E [place] [id number] CR Insurance:MEDICARE MILLERDOB: [address], PART A BPolicy Number: [id number] Navajo Medical Center [address]Yjw: [id number] Repository Date:2018-02-04 () 02/04/2018 Secondary GABBI E [place] Insurance:AARPPolicy MILLERDOB: Community Number: [id number] Hospital [id number] Repository Date:8492-83-15[address] [place] [address], [place] [address]RR: 02/04/2018 Tertiary NOT GIVENUNK [place] Insurance:SELF PA[facility] Number: Effective Repository Date:2018-02-04 01/30/2018 Umer Faulkner Primary GABBI E [place] [id number] CR Insurance:MEDICARE MILLERDOB: [address], PART A BPolicy Number: [id number] Navajo Medical Center [address]Dfl: [id number] Repository Date:2018-01-30 () 01/30/2018 Secondary GABBI E [place] Insurance:AARPPolicy MILLERDOB: Community Number: [id number] Hospital [id number] Repository Date:1302-50-36Ag [place] [address]Rwnvxqn, [place] [address]LA: 01/30/2018 Tertiary NOT GIVENUNK [place] Insurance:SELF PAY [facility] Number: Effective Repository Date:2018-01-30 01/29/2018 Umer Faulkner Primary GABBI E [place] [id number] CR Insurance:MEDICARE MILLERDOB: [address] PART A BPolicy Number: [id number] Navajo Medical Center [address]Zip: [id number] Repository Date:2008-04-19 () 01/29/2018 Secondary GABBI E [place] Insurance:AARPPolicy MILLERDOB: Community Number: [id number] [facility] [id number] Repository Date:[id number], [place] [address]WU: 01/29/2018 Tertiary NOT GIVENUNK Claudia Insurance:SELF PAY [facility]: Effective Repository Date:2018-01-29 01/22/2018 Umer Faulkner Primary GABBI E [place] [id number] CR Insurance:MEDICARE MILLERDOB: [address], PART A BPolicy Number: [id number] Navajo [facility] [address]Wej: [id number] Repository Date:2018-01-06 () 01/22/2018 Secondary GABBI E Claudia Insurance:AARPPolicy MILLERDOB: Community Number: [id number] Hospital [id number] Repository Date:7905-50-30[address]Krjzlhc, [place] [address]YT: 01/22/2018 Tertiary NOT GIVENUNK [place] Insurance:SELF PAY [facility] Hospital Number: Effective Repository Date:2018-01-06 01/22/2018 Umer Faulkner Primary GABBI E [place] [id number] Cr Insurance:MEDICARE MILLERDOB: [address], PART A BPolicy Number: [id number] [facility] Medical Center [address]Eyq: [id number] Repository Date:2018-01-06 () 01/22/2018 Secondary GABBI E [place] Insurance:AARPPolicy MILLERDOB: Community Number: [id number] Hospital [id number] Repository Date:7021-86-09[address], [place] [address]DZ: 01/22/2018 Tertiary NOT GIVENUNK [place] Insurance:SELF PAY [facility] Number: Effective Repository Date:2018-01-06 01/21/2018 Umer Faulkner Primary GABBI Taylor [id number] CR Insurance:MEDICARE MILLERDOB: Community [address] [place] [address], PART A olic Number: [id number] [facility]ajo Medical Center 17210Qgh: [id number] Repository Date:2018-01-21 () 01/21/2018 Secondary GABBI E [place] Insurance:AARPPolicy MILLERDOB: Community Number: [id number] Hospital [id number] Repository Date:2391-84-41Qn [place] [address] [address]bs[place], [place] [address]JH: 01/21/2018 Tertiary NOT GIVENUNK [place] Insurance:SELF PAY [facility] Number: Effective Repository Date:2018-01-21 01/21/2018 Umer Faulkner Primary GABBI Mc [place] [id number] CR Insurance:MEDICARE MILLERDOB: [address], PART A [facility] Number: [id number] Navajo Medical Center [address]324Oag: [id number] Repository Date:2018-01-21 () 01/21/2018 Secondary GABBI E [place] Insurance:AARPPolicy MILLERDOB: Community Number: [id number] Hospital [id number] Repository Date:8694-45-73Uk [address]Uocibnd, [place] [address]FN: 01/21/2018 Tertiary NOT GIVENUNK [place] Insurance:SELF PAY [facility] Number: Effective Repository Date:2018-01-21 01/21/2018 Umer Faulkner Primary GABBI Mc [place] [id number] CR Insurance:MEDICARE MILLERDOB: [address], PART A [facility] Number: [id number] Navajo Medical Center 11415Daa: [id number] Repository Date:2018-01-21 () 01/21/2018 Secondary GABBI E [place] Insurance:AARPPolicy MILLERDOB: Community Number: [id number] Hospital [id number] Repository Date:9371-21-37Re [address]Uxygzin, [place] [address]YS: 01/21/2018 Tertiary NOT GIVENUNK [place] Insurance:SELF PAY [facility] Number: Effective Repository Date:2018-01-21 01/21/2018 Umer Faulkner Primary GABBI Taylor [id number] CR Insurance:MEDICARE MILLERDOB: Community [address] [place] [address], PART A BPolicy Number: [id number] Navajo Medical Center [address]3288Ysp: [id number] Repository Date:2018-01-21 () 01/21/2018 Secondary GABBI E [place] Insurance:AARPPolicy MILLERDOB: Community Number: [id number] Hospital [id number] Repository Date:6366-80-70Re [address]Rbmcfkf, [place] [address]BD: 01/21/2018 Tertiary NOT GIVENUNK [place] Insurance:SELF PAY [facility] Number: Effective Repository Date:2018-01-21 01/21/2018 Umer Faulkner Primary GABBI Mc [place] [id number] CR Insurance:MEDICARE MILLERDOB: [address], PART A BPolicy Number: [id number] Navajo Medical Center 87280Vry: [id number] Repository Date:2018-01-21 () 01/21/2018 Secondary GABBI E [place] Insurance:AARPPolicy MILLERDOB: Community Number: [id number] Hospital [id number] Repository Date:7599-05-69Kw [address]Uumxdvn, [place] [address]XW: 01/21/2018 Tertiary NOT GIVENUNK [place] Insurance:SELF PAY [facility] Number: Effective Repository Date:2018-01-21 01/21/2018 Umer Faulkner Primary GABBI Mc [place] [id number] CR Insurance:MEDICARE MILLERDOB: [address], PART A BPolicy Number: [id number] Navajo Medical Center 09140Lbe: [id number] Repository Date:2018-01-21 () 01/21/2018 Secondary GABBI E [place] Insurance:AARPPolicy MILLERDOB: Community Number: [id number] Hospital [id number] Repository Date:8005-49-87Vy [address]Yvqyyay, [place] [address]HH: 01/21/2018 Tertiary NOT GIVENUNK [place] Insurance:SELF [facility] Effective Repository Date:2018-01-21 01/21/2018 Umer Lucie Primary GABBI E [place] [id number] CR Insurance:MEDICARE MILLERDOB: [address], PART A olicy Number: [id number] Navajo Medical Center 16364Lwd: [id number] Repository Date:2018-01-21 () 01/21/2018 Secondary GABBI E [place] Insurance:AARPPolicy MILLERDOB: Community Number: [id number] Hospital [id number] Repository Date:1985-27-41Lz [address]Lhwvinf, [place] [address]RP: 01/21/2018 Tertiary NOT GIVENUNK [place] Insurance:SELF PAY [facility] Hospital Number: Effective Repository Date:2018-01-21 01/21/2018 Umer Faulkner Primary GABBI E [place] [id number] CR Insurance:MEDICARE MILLERDOB: [address], PART A olicy Number: [id number] Navajo Medical Center 94185Qgo: [id number] Repository Date:2018-01-21 () 01/21/2018 Secondary GABBI E [place] Insurance:AARPPolicy MILLERDOB: Community Number: [id number] Hospital [id number] Repository Date:2346-74-18Ql [address], [place] [address]OF: 01/21/2018 Tertiary NOT GIVENUNK [place] Insurance:SELF PAY [facility] Hospital Number: Effective Repository Date:2018-01-21 01/21/2018 Umer Faulkner Primary GABBI Mc [place] [id number] CR Insurance:MEDICARE MILLERDOB: Community [address] [place] [address], PART A BPolicy Number: [id number] Navajo Medical Center [address]18Jop: [id number] Repository Date:2018-01-21 (HP) 01/21/2018 Secondary GABBI E [place] Insurance:AARPPolicy MILLERDOB: Community Number: [id number] Hospital [id number] Repository Date:8729-36-02Lx [address]Gzbrcrp, [place] [address]MT: 01/21/2018 Tertiary NOT GIVENUNK [place] Insurance:SELF PAY [facility] Number: Effective Repository Date:2018-01-21 01/15/2018 Umer Faulkner Primary GABBI E [place] [id number] CR Insurance:MEDICARE MILLERDOB: Community [address] [place] [address], PART A BPolicy Number: [id number] Navajo Medical Center 85035Rme: [id number] Repository Date:2018-01-09 (HP) 01/15/2018 Secondary GABBI E [place] Insurance:AARPPolicy MILLERDOB: Community Number: [id number] Hospital [id number] Repository Date:1600-68-32Af [address] [address], [place] [address]UG: 01/15/2018 Tertiary NOT GIVENUNK [place] Insurance:SELF PAY [facility] Number: Effective Repository Date:2018-01-15 01/08/2018 Umer Faulkner Primary GABBI E [place] [id number] Cr Insurance:MEDICARE MILLERDOB: Community [address] [place] [address], PART A BPolicy Number: [id number] Navajo Medical Center 09484Nsj: [id number] Repository Date:2018-01-03 (HP) 01/08/2018 Secondary GABBI E [place] Insurance:AARPPolicy MILLERDOB: Community Number: [id number] Hospital [id number] Repository Date:4243-96-71Tn [address]Pqvfszl, [place] [address]XZ: 01/08/2018 Tertiary NOT GIVENUNK [place] Insurance:SELF PAY [facility] Hospital Number: Effective Repository Date:2018-01-03 01/08/2018 Umer Faulkner Primary GABBI Taylor [id number] Cr Insurance:MEDICARE MILLERDOB: Community [address] [place] [address], PART A BPolicy Number: [id number] Navajo Medical Center 06878Gwh: [id number] Repository Date:2018-01-03 () 01/08/2018 Secondary GABBI E [place] Insurance:AARPPolicy MILLERDOB: Community Number: [id number] Hospital [id number] Repository Date:1078-48-67Yo [place] [address]zbo, [place] [address]IA: 01/08/2018 Tertiary NOT GIVENUNK [place] Insurance:SELF PAY [facility] Hospital Number: Effective Repository Date:2018-01-08 01/03/2018 Umer Faulkner Primary GABBI Mc [place] [id number] Cr Insurance:MEDICARE MILLERDOB: Community [address] [place] [address], PART A [facility]Pro[facility]ery Number: [id number] Navajo Medical Center 30785Wdb: [id number] Repository Date:2018-01-01 () 01/03/2018 Secondary GABBI E [place] Insurance:AARPPolicy MILLERDOB: Community Number: [id number] Hospital [id number] Repository Date:1542-43-84Zi [address]osk, [place] [address]QS: 01/03/2018 Tertiary NOT GIVENUNK [place] Insurance:SELF PAY [facility] Number: Effective Repository Date:2018-01-01 01/01/2018 Umer Faulkner Primary GABBI Mc [place] [id number] Cr Insurance:MEDICARE MILLERDOB: Community [address] [place] [address], PART A BPolicy Number: [id number] Navajo Medical Center 96529Hky: [id number] Repository Date:2008-04-19 () 01/01/2018 Secondary GABBI E [place] Insurance:AARPPolicy MILLERDOB: Community Number: [id number] Hospital [id number] Repository Date:4943-59-51L[address]Gszhncj, [place] [address]JI: 01/01/2018 Tertiary NOT GIVENUNK [place] Insurance:SELF PAY [facility] Effective Repository Date:2018-01-01 12/23/2017 Umer Faulkner Primary GABBI Taylor [id number] Cr Insurance:MEDICARE MILLERDOB: Community [address] [place] [address], PART A BPolicy Number: [id number] Navajo Medical Center 86827Ytl: [id number] Repository Date:2017-12-23 () 12/23/2017 Secondary GABBI E [place] Insurance:AARPPolicy MILLERDOB: Community Number: [id number] Hospital [id number] Repository Date:5822-09-74[address]Nylprml, [place] [address]AH: 12/23/2017 Tertiary NOT GIVENUNK [place] Insurance:SELF PAY [facility] Number: Effective Repository Date:2017-12-23 12/05/2017 Umer Faulkner Primary GABBI Taylor [id number] Cr Insurance:MEDICARE MILLERDOB: [address], PART A BPolicy Number: [id number] Navajo Medical Center [address]3222Cag: [id number] Repository Date:2008-04-19 () 12/05/2017 Secondary GABBI E [place] Insurance:AARPPolicy MILLERDOB: Community Number: [id number] Hospital [id number] Repository Date:5844-46-57Ys [address]Bfcmata, [place] [address]KO: 12/05/2017 Tertiary NOT GIVENUNK [place] Insurance:SELF PAY [facility] Number: Effective Repository Date:2017-12-05 11/30/2017 Umer Faulkner Primary GABBI Taylor [id number] CR Insurance:MEDICARE MILLERDOB: Community [address] [place] [address], PART A BPolicy Number: [id number] Navajo Medical Center 50232Yio: [id number] Repository Date:2017-11-29 () 11/30/2017 Secondary GABBI E [place] Insurance:AARPPolicy MILLERDOB: Community Number: [id number] Hospital [id number] Repository Date:6194-91-45Xf [address]v, [place] [address]MI: 11/30/2017 Tertiary NOT GIVENUNK [place] Insurance:SELF PAY [facility] Number: Effective Repository Date:2017-11-30 11/29/2017 Umer Faulkner Primary GABBI Taylor [id number] Cr Insurance:MEDICARE MILLERDOB: [address], PART A BPolicy Number: [id number] Navajo Medical Center 43207Vcz: [id number] Repository Date:2017-11-29 () 11/29/2017 Secondary GABBI E [place] Insurance:AARPPolicy MILLERDOB: Community Number: [id number] Hospital [id number] Repository Date:8294-93-52Fm [address]Vfysghu, [place] [address]XX: 11/29/2017 Tertiary NOT GIVENUNK [place] Insurance:SELF PAY [facility] Hospital Number: Effective Repository Date:2017-11-29 11/29/2017 Umer Faulkner Primary GABBI Mendozaoster [id number] Cr Insurance:MEDICARE MILLERDOB: [address], PART A BPolicy Number: [id number] Navajo Medical Center 00826Cqb: [id number] Repository Date:2017-11-29 () 11/29/2017 Secondary GABBI E [place] Insurance:AARPPolicy MILLERDOB: Community Number: [id number] Hospital [id number] Repository Date:0108-83-72Dq [address]Rivz[place]c, [place] [address]EN: 11/29/2017 Tertiary NOT GIVENUNK [place] Insurance:SELF PAY [facility] Number: Effective Repository Date:2017-11-29 11/29/2017 Umer Faulkner Primary GABBI Taylor [id number] Cr Insurance:MEDICARE MILLERDOB: Community [address] [place] [address], PART A olicy Number: [id number] Navajo Medical Center 55814Qxt: [id number] Repository Date:2017-11-29 () 11/29/2017 Secondary GABBI E [place] Insurance:AARPPolicy MILLERDOB: Community Number: [id number] Hospital [id number] Repository Date:3770-49-79Dx [address]Nrvzioo, [place] [address]QN: 11/29/2017 Tertiary NOT GIVENUNK [place] Insurance:SELF PAY [facility] Number: Effective Repository Date:2017-11-29 11/29/2017 Umer Faulkner Primary GABBI Mc [place] [id number] Cr Insurance:MEDICARE MILLERDOB: [address], PART A [facility] Number: [id number] Navajo Medical Center 79450Czt: [id number] Repository Date:2017-11-29 () 11/29/2017 Secondary GABBI E [place] Insurance:AARPPolicy MILLERDOB: Community Number: [id number] Hospital [id number] Repository Date:0359-50-44Dw [address]Hmblqnn, [place] [address]KB: 11/29/2017 Tertiary NOT GIVENUNK [place] Insurance:SELF PAY [facility] Number: Effective Repository Date:2017-11-29 11/29/2017 Umer Faulkner Primary GABBI Mc [place] [id number] Cr Insurance:MEDICARE MILLERDOB: Community [address] [place] [address], PART A [facility] Number: [id number] Navajo Medical Center 68546Pxa: [id number] Repository Date:2017-11-29 () 11/29/2017 Secondary GABBI E [place] Insurance:AARPPolicy MILLERDOB: Community Number: [id number] Hospital [id number] Repository Date:0411-49-85Sx [address]Jsjccyd, [place] [address]HB: 11/29/2017 Tertiary NOT GIVENUNK [place] Insurance:SELF PAY [facility] Number: Effective Repository Date:2017-11-29 11/29/2017 Umer Faulkner Primary GABBI Mc [place] [id number] Cr Insurance:MEDICARE MILLERDOB: [address], [facility] A BPolicy Number: [id number] Navajo Medical Center 86070Gpe: [id number] Repository Date:2017-11-29 () 11/29/2017 Secondary GABBI E [place] Insurance:AARPPolicy MILLERDOB: Community Number: [id number] Hospital [id number] Repository Date:1990-06-03P[address], [place] [address]LM: 11/29/2017 Tertiary NOT GIVENUNK [place] Insurance:SELF PAY [facility] Hospital Number: Effective Repository Date:2017-11-29 11/29/2017 Umer Faulkner Primary GABBI E [place] [id number] Cr Insurance:MEDICARE MILLERDOB: [address], [facility] A BPolicy Number: [id number] Navajo Medical Center 84882Dsu: [id number] Repository Date:2017-11-29 () 11/29/2017 Secondary GABBI E [place] Insurance:AARPPolicy MILLERDOB: Community Number: [id number] Hospital [id number] Repository Date:4414-80-70Yi [address] [address], [place] [address]VO: 11/29/2017 Tertiary NOT GIVENUNK [place] Insurance:SELF PAY [facility] Hospital Number: Effective Repository Date:2017-11-29 11/26/2017 GABBI E Primary Insurance:500 GABBI Frances MILLERDOB: MEDICARE MILLERDOB: [facility] [id number] [facility] [id number] Hospital CR Number: [address] [id number] [address] [place] [address] Date:Plan Name:[facility] [id number]: () 11/26/2017 Secondary GABBI Frances Insurance:AARP MILLERDOB: [facility] [id number] Hospital Number: 9 [facility] Repository [id number] [place], Date: [place] [id number] 11/18/2017 Umer Faulkner Primary GABBI E [place] [id number] Cr Insurance:MEDICARE MILLERDOB: [address], PART A BPolicy Number: [id number] Navajo Medical Center 23310Nyp: [id number] Repository Date:2017-11-18 () 11/18/2017 Secondary GABBI E [place] Insurance:AARPPolicy MILLERDOB: Community Number: [id number] Hospital [id number] Repository Date:3282-00-00Hr [address] [address], [place] [address]TJ: 11/18/2017 Tertiary NOT GIVENUNK [place] Insurance:SELF PAY [facility] Hospital Number: Effective Repository Date:2017-11-18 11/04/2017 Umer Faulkner Primary GABBI E [place] [id number] Cr Insurance:MEDICARE MILLERDOB: [address], PART A BPolicy Number: [id number] Navajo Medical Center 11073Ubs: [id number] Repository Date:2008-04-19 () 11/04/2017 Secondary GABBI E [place] Insurance:AARPPolicy MILLERDOB: Community Number: [id number] Hospital [id number] Repository Date:8228-74-66Ns [place] [address]Q[place]zo, [place] [address]QZ: 11/04/2017 Tertiary NOT GIVENUNK [place] Insurance:SELF PAY [facility] Hospital Number: Effective Repository Date:2017-11-04 10/28/2017 Umer Lucie Primary GABBI E [place] [id number] Cr Insurance:MEDICARE MILLERDOB: Community [address] [place] [address], PART A BPolicy Number: [id number] Navajo Medical Center 50293Kxc: [id number] Repository Date:2017-10-28 (HP) 10/28/2017 Secondary GABBI E [place] Insurance:AARPPolicy MILLERDOB: Community Number: [id number] Hospital [id number] Repository Date:5697-53-83Id [address]Vrcxwff, [place] [address]GZ: 10/28/2017 Tertiary NOT GIVENUNK [place] Insurance:SELF PAY [facility] Number: Effective Repository Date:2017-10-28 10/19/2017 Umer Faulkner Primary GABBI E [place] [id number] Cr Insurance:MEDICARE MILLERDOB: [address], PART A BPolicy Number: [id number] Navajo Medical Center 34880Awm: [id number] Repository Date:2017-10-19 (HP) 10/19/2017 Secondary GABBI E [place] Insurance:AARPPolicy MILLERDOB: Community Number: [id number] Hospital [id number] Repository Date:4165-85-99Bx [address]Fplxbxf, [place] [address]DD: 10/19/2017 Tertiary NOT GIVENUNK [place] Insurance:SELF PAY [facility] Number: Effective Repository Date:2017-10-19 10/19/2017 Umer Faulkner Primary GABBI E [place] [id number] Cr Insurance:MEDICARE MILLERDOB: [address], PART A BPolicy Number: [id number] Navajo Medical Center 83235Trp: [id number] Repository Date:2017-10-19 () 10/19/2017 Secondary GABBI E [place] Insurance:AARPPolicy MILLERDOB: Community Number: [id number] Hospital [id number] Repository Date:5027-79-00Zi [address]Riczjrt, [place] [address]MK: 10/19/2017 Tertiary NOT GIVENUNK [place] Insurance:SELF PAY [facility] Number: Effective Repository Date:2017-10-19 09/18/2017 Umer Faulkner Primary GABBI Taylor [id number] Cr Insurance:MEDICARE MILLERDOB: Community [address] [place] [address], PART A BPolicy Number: [id number] Navajo Medical Center 11475Uee: [id number] Repository Date:2017-09-03 () 09/18/2017 Secondary GABBI E [place] Insurance:AARPPolicy MILLERDOB: Community Number: [id number] Hospital [id number] Repository Date:4026-51-53Uv [address]Xoqexuf, [place] [address]WP: 09/18/2017 Tertiary NOT GIVENUNK [place] Insurance:SELF PAY [facility] Number: Effective Repository Date:2017-09-03 09/18/2017 Umer Faulkner Primary GABBI Taylor [id number] Cr Insurance:MEDICARE MILLERDOB: [address], PART A BPolicy Number: [id number] Navajo Medical Center 28217Yjp: [id number] Repository Date:2017-09-18 () 09/18/2017 Secondary GABBI E [place] Insurance:AARPPolicy MILLERDOB: Community Number: [id number] Hospital [id number] Repository Date:0740-73-96Xv [address]Iotpqya, [place] [address]XS: 09/18/2017 Tertiary NOT GIVENUNK [place] Insurance:SELF PAY [facility] Number: Effective Repository Date:2017-09-18 SOCIAL HISTORY SOCIAL HISTORY No Social History Records FoundFAMILY HISTORY FAMILY HISTORY No Family History Records FoundADVANCE DIRECTIVES ADVANCE DIRECTIVES No Advanced Directives Records FoundINFORMATION SOURCE INFORMATION SOURCE DATE CREATED AUTHOR AUTHOR'S ORGANIZATION 09/10/2018 [facility]
== END ==
PROVIDERS: Family Provider Nurse Practitioner; PCP Nurse Practitioner; Visit Provider Nurse Practitioner
DX: Z12.31 Encounter for screening mammogram for malignant neoplasm of breast (principal)
CPT/HCPCS: 77063; 77067

== ENCOUNTER → 2018-09-30 09:30 | Outpatient (CLI) | payer MEDICARE, OTHER, SELFPAY ==
[2018-09-04 14:02] VITALS: BMI 47.6
== END ==
PROVIDERS: Family Provider Nurse Practitioner; PCP Nurse Practitioner; Referring Provider Internal Medicine; Visit Provider Internal Medicine
DX: R00.1 Bradycardia, unspecified (principal)
CPT/HCPCS: 93225; 93226

== ENCOUNTER → 2019-08-04 12:11 | Outpatient (CLI) | payer MEDICARE, OTHER, SELFPAY ==
[2019-07-07 13:11] VITALS: BMI 47.6
--- NOTE | 2019-08-04 12:13 | BI_ITS ---
MAMMOGRAPHY - BILATERAL SCREENING REASON FOR EXAM: Female, 74 years old. Routine annual screening examination. PERTINENT HISTORY: Non-contributory. TECHNIQUE: Digital bilateral breast jodi (3D mammographic acquisition) in the CC and MLO projections. 2-D mediolateral oblique (MLO) and craniocaudad (CC) views of both breasts were obtained. CAD: Full Field Digital Mammography with Computer Added Detection was performed. COMPARISON: Comparison is made with prior examination dated August 05, 2018 and July 23, 2017. FINDINGS: Breast Composition: There are scattered areas of fibroglandular density. There are no dominant masses or suspicious calcifications. Stable well-defined nodular density in the upper lateral aspect of the right breast. This was determined to be 2 small lymph nodes on prior sonogram. No other significant abnormalities are identified. There has been no significant change since the prior study. BI/SCREEN MAMM (CAD) W/JODI BILAT IMPRESSION: Stable bilateral screening mammogram. Yearly follow-up mammogram recommended. (A) ASSESSMENT CATEGORY: BIRADS Category 2: Benign. A letter regarding these results will be sent to the patient by the facility within 30 days. Approximately 10% of breast cancers are not detected by mammography. A normal mammogram should not delay biopsy of a clinically suspicious abnormality. [id number] Electronically Signed: Irvin Edwards, at 13:44 EST , Service support ,
== END ==
PROVIDERS: Family Provider Nurse Practitioner; PCP Nurse Practitioner; Referring Provider Nurse Practitioner; Visit Provider Nurse Practitioner
DX: Z12.31 Encounter for screening mammogram for malignant neoplasm of breast (principal)
CPT/HCPCS: 77063; 77067

== ENCOUNTER → 2020-02-03 12:44 | Outpatient (CLI) | payer MEDICARE, OTHER, SELFPAY ==
[2020-01-05 13:27] VITALS: BMI 45.1
[2020-02-02 13:04] VITALS: BMI 40.3
--- NOTE | 2020-02-03 12:45 | ECHOD_ITS ---
Reason For Study: Valve replacement eval Procedure This was a 2D Doppler, Color Flow transthoracic echocardiogram. Exam performed in department. Left Ventricle Normal LV size. Moderate concentric left ventricular hypertrophy. Left ventricular systolic function is normal. The estimated ejection fraction is 60 %. No regional wall motion abnormalities noted. Right Ventricle Normal RV size. Normal systolic function. Atria The left atrium is severely enlarged. The right atrium is severely enlarged. Mitral Valve Normal mitral valve. Mild (1+) eccentric mitral valve insufficiency. Tricuspid Valve Normal tricuspid valve. Mild (1+) tricuspid valve insufficiency. Pulmonary artery systolic pressure is 49 mmHg. Moderate pulmonary hypertension. Aortic Valve Peak aortic valve gradient 27 mmHg. Mean aortic valve gradient 12 mmHg. Mild aortic stenosis. Bioprosthetic aortic valve. Great Vessels Normal aortic root. The pulmonary artery is normal size. Normal inferior vena cava. Pericardium/Pleural No pericardial effusion. MMode/2D Measurements & Calculations LVIDd: 5.7 cm IVSd: 1.3 cm LVOT diam: 2.0 cm LVIDs: 3.2 cm LVPWd: 1.4 cm LVOT area: 3.1 cm2 RVDd: 4.5 cm FS: 44.0 % Ao root diam: 3.0 cm LAV(MOD-bp): 145.4 ml LA A4 area: 35.8 cm2 LA dimension: 5.3 cm LAV(MOD-bp) Indexed: 61.7 ml/m2 LAV(MOD-sp2): 140.7 ml LAV(MOD-sp4): 148.0 ml RA A4 area: 25.9 cm2 Time Measurements MV dec time: 0.22 sec Doppler Measurements & Calculations MV E max luke: 153.1 cm/sec Lat Peak E' Luke: 12.5 cm/sec Med Peak E' Luke: 10.8 cm/sec MV A max luke: 47.5 cm/sec E/E' lat: 12.2 E/E' med: 14.2 MV E/A: 3.2 MV V2 max: 178.9 cm/sec MV P1/2t max luke: 178.9 cm/sec Ao V2 max: 260.7 cm/sec MV max P.8 mmHg MV P1/2t: 104.4 msec Ao max P.2 mmHg MV V2 mean: 83.3 cm/sec MV dec slope: 501.8 cm/sec2 Ao V2 mean: 163.8 cm/sec MV mean P.6 mmHg MVA(P1/2t): 2.1 cm2 Ao mean P.6 mmHg MV V2 VTI: 44.8 cm Ao V2 VTI: 58.0 cm MVA(VTI): 2.6 cm2 ALONSO(I,D): 2.0 cm2 ALONSO(V,D): 1.8 cm2 LV V1 max: 153.3 cm/sec MR max luke: 572.2 cm/sec SV(LVOT): 115.1 ml LV V1 max P.4 mmHg MR max P.9 mmHg LV V1 mean P.1 mmHg MR mean luke: 450.7 cm/sec LV V1 mean: 106.1 cm/sec MR mean P.9 mmHg LV V1 VTI: 37.6 cm MR VTI: 205.1 cm PA V2 max: 122.4 cm/sec TR max luke: 332.6 cm/sec TR max P.2 mmHg Interpretation Summary Normal LV size. Left ventricular systolic function is normal. The estimated ejection fraction is 60 %. The left atrium is severely enlarged. The right atrium is severely enlarged. Mild (1+) eccentric mitral valve insufficiency. Pulmonary artery systolic pressure is 49 mmHg. Moderate pulmonary hypertension. Bioprosthetic aortic valve. Mean aortic valve gradient 12 mmHg. Ordering Physician: Niraj Raymundo Referring Physician: Jyothi Weber Performed By: Dany Triplett RCS
== END ==
PROVIDERS: PCP Nurse Practitioner; Referring Provider Internal Medicine Cardiovascular Disease; Visit Provider Internal Medicine Cardiovascular Disease
DX: Z95.2 Presence of prosthetic heart valve (principal)
CPT/HCPCS: 93306

== ENCOUNTER → 2020-07-20 07:41 | Outpatient (CLI) | payer MEDICARE, OTHER, SELFPAY ==
[2020-03-01 14:08] VITALS: BMI 45.2
[2020-05-10 10:45] VITALS: BMI 45.1
--- NOTE | 2020-07-20 07:43 | BI_ITS ---
MAMMOGRAPHY - BILATERAL SCREENING REASON FOR EXAM: Female, 75 years old. Routine annual screening examination. PERTINENT HISTORY: Non-contributory. TECHNIQUE: Digital bilateral breast jodi (3D mammographic acquisition) in the CC and MLO projections. 2-D mediolateral oblique (MLO) and craniocaudad (CC) views of both breasts were obtained. CAD: Full Field Digital Mammography with Computer Added Detection was performed. COMPARISON: Comparison is made with prior study dated 08/04/2019 and 08/05/2018. FINDINGS: Breast Composition: There are scattered areas of fibroglandular density. There are no dominant masses or suspicious calcifications. Stable well-defined nodular density in the upper lateral aspect of the right breast. These were demonstrated to be 2 small lymph node on prior sonogram. No other significant abnormalities are identified. There has been no significant change since the prior study. BI/SCREEN MAMM (CAD) W/JODI BILAT IMPRESSION: Stable bilateral screening mammogram. Yearly follow-up mammogram recommended. (A) ASSESSMENT CATEGORY: BIRADS Category 2: Benign. A letter regarding these results will be sent to the patient by the facility within 30 days. Approximately 10% of breast cancers are not detected by mammography. A normal mammogram should not delay biopsy of a clinically suspicious abnormality. [id number] Electronically Signed: Irvin Edwards, at 9:06 EST , Service support ,
--- NOTE | 2020-07-20 08:18 | BD_ITS ---
STUDY: DUAL ENERGY X-RAY ABSORPTIOMETRY / DXA REASON FOR EXAM: Female, 75 years old. Age of stewart 52. Pat is 287.6# and 66 and quot; a loss of 2 and quot; per pat. Past hx of taking an HRT. Past use of fosamax. Type II diabetic and controls it with diet. Past use of a diuretic and now takes it off and on. Does very little exercising. Hx of a toe fx. TECHNIQUE: Bone Mineral Density (BMD) measurements of lumbar spine and bilateral hips were obtained. COMPARISON: Comparison is made with prior study dated 07/30/2013. FINDINGS: Lumbar Spine (L1-L4): g/cm2 (1.424) / T-score (2.1) / Z-score (3.9) Findings are suggestive of normal bone density with a low fracture risk. Left Femur Total: g/cm2 (0.897) / T-score (-0.9) / Z-score (1.0) Left Femoral Neck: g/cm2 (0.757) / T-score (-2.0) / Z-score (0.0) Right Femur Total: g/cm2 (0.921) / T-score (-0.7) / Z-score (1.2) Right Femoral Neck: g/cm2 (0.869) / T-score (-1.2) / Z-score (0.8) The T-Scores on the most recent prior examination were: Lumbar Spine (L1-L4): There has been improvement of bone density since the previous examination. Left Femur Total: which represents a worsening of 11.7%. Right Femur Total: which represents a worsening of 14%. BD/Dexa Bone Density Study IMPRESSION: The patient is considered osteopenic as outlined below according to World Mike Organization (WHO) criteria with a moderate fracture risk. There has been worsening of bone density since the previous examination. Reference Information: The T-score is the number of standard deviations above or below the standard which is normal for young adults at their peak bone mineral density. The World Health Organization (WHO) interprets the T-scores as follows: Above -1 Normal bone density Between -1 and -2.5 Osteopenia Equal to / or below -2.5 Osteoporosis As a practical clinical guideline, osteopenia may be graded as follows: Mild -1 through -1.5 Moderate -1.6 through -2.0 Severe -2.1 through -2.4 The Z-score is the number of standard deviations above or below age-matched controls. A Z-score of less than -1.5 would be considered abnormal. References: 1. NIH Osteoporosis and Related Bone Diseases www osteo.org 2. International Society for Clinical Densitometry www iscd.org 3. National Osteoporosis Foundation www nof.org Electronically Signed: Irvin Edwards, at 15:33 EST , Service support ,
== END ==
PROVIDERS: PCP Nurse Practitioner; Referring Provider Nurse Practitioner; Visit Provider Nurse Practitioner
DX: Z78.0 Asymptomatic menopausal state (principal); Z12.31 Encounter for screening mammogram for malignant neoplasm of breast; D50.0 Iron deficiency anemia secondary to blood loss (chronic); Z45.2 Encounter for adjustment and management of vascular access device
CPT/HCPCS: 36591; 77063; 77067; 77080; 82728; 83540; 83550; 85025; A4216

== ENCOUNTER 2020-09-24 19:18 | Inpatient (IN) | payer MEDICARE, OTHER, SELFPAY ==
[2020-08-01 12:02] VITALS: BMI 46.3
[2020-09-24] VITALS (8 sets, daily range): BP systolic 128–168; BP diastolic 47–99; PULSE 79–100; RESP 16–22; TEMP 36.6–37.2; O2SAT 93–100; BMI 46.2; BMI 45.2; BMI 45.3
--- NOTE | 2020-09-24 19:39 | ED.VISSUMM ---
- ER Visit Summary Date of Service: 09/24/20 Chief Complaint: Generalized weakness and syncope History of Present Illness: The patient is a 75 F history of prior GI bleeds, CAD, MA, A. fib, hypertension and renal insufficiency. Patient is on no blood thinners due to prior GI bleeds. Has noticed she has had black tarry stools last several days. Said she was not feeling well today and just weak all over. Had a syncopal episode after getting shower sitting on the toilet. She denies headache or chest pain. She denies abdominal pain or shortness of breath. Physical Examination: Older female no acute distress vital signs stable afebrile. Pulse ox 9% on room air no signs hypoxia. H EENT exam unremarkable. Neck nontender. Lungs clear to auscultation bilaterally. Heart A. fib rate about 80. Abdomen soft nontender normal bowel sounds no peritoneal signs. Obese. Patient moving all 4 extremities. Rectal exam brown stool. No mass. Done with female nurse present in room. Neurologically patient awake alert with no focal motor deficits. Back nontender. Test Results: EKG shows A. fib at 81 with no acute signs of MA or ischemia. His white count of 10 hemoglobin of 4.7 consistent with significant anemia secondary to GI bleed. The type and screen has been converted to a type and cross for 6 units she will be transfused 2 units and admitted. Emergency Department Course and Treatment: Elderly female with syncope at home and reported melanotic stool. With a history of prior GI bleeds. Treatment Plan: Hospitalist on page. Disposition: Admission Impression: Acute syncope Acute anemia secondary to acute GI bleed history of GI bleed Acute generalized weakness Chronic A. fib This note was generated with CleverSet dictation software. It may contain incorrect words, spelling, and punctuation that were not noted in review of the chart prior to signing ED Disposition - Plan for ED Patient: Referrals: Jyothi Weber NP, [facility] [Primary Care Provider] -
--- NOTE | 2020-09-24 19:40 | RAD_ITS ---
STUDY: X-RAY CHEST REASON FOR EXAM: Female, 75 years old. WEAKNESS TECHNIQUE: Single frontal view of the chest. COMPARISON: 01/24/2018. FINDINGS: Port-A-Cath tip is in the region of the cavoatrial junction. Cardiac silhouette unremarkable. Pulmonary vascularity unremarkable. Aorta unremarkable. Vascular hardware. Minimal bibasilar airspace opacities. No pleural effusions. Upper abdomen unremarkable. Osseous structures intact. No pneumothorax. RAD/Chest 1 View (Portable) IMPRESSION: Minimal bibasilar airspace opacities may represent scarring versus consolidation as clinically indicated. Electronically Signed: Davidson Melchor MD at 20:58 EST Tel , Service support ,
[2020-09-24 20:06] LABS: Absolute Lymphocyte Count 0.82 X10^3/uL (0.83-4.51); Absolute Neutrophil Count 9.4 X10^3/uL (2.0-7.7); Basophil# 0.03 X10^3/uL; Basophil% 0.3 % (0-1); Hematocrit 15.9 % (37-47); Lymphocyte # 0.82 X10^3/ul (4.0); Lymphocyte % 7.7 % (19-41); Mean Corp Hgb Conc 29.6 g/dL (32-36); Mean Corpuscular Hgb 30.3 pg (27.0-32.0); Mean Corpuscular Volume 102.6 fL (81-99); Mean Platelet Vol. 12.8 fl (6.2-12.0); Monocyte% 2.8 % (0-10); NRBC Flagged by Analyzer 0 % (0-5); Neutrophil # 9.41 X10^3/uL (2.7-7.7); Neutrophil % 88.4 % (47-70); POSITIVE COUNT YES; Platelet Count 127 K/mm3 (150-450); RBC Distribution Width CV 15.3 % (11.6-14.6); RBC Distribution Width SD 53.2 fl (35.1-43.9); Red Blood Count 1.55 M/mm3 (4.2-5.4); White Blood Count 10.6 K/mm3 (4.4-11.0)
[2020-09-24 20:17] LABS: Differential Indicated SCAN CRITERIA MET; Hemoglobin 4.7 g/dL (12.0-15.0)
[2020-09-24 20:25] LABS: Anion Gap 8 (5-15); BUN 63 mg/dL (7-18); BUN/Creat Ratio 48.1 RATIO (10-20); Calcium,Total 8.3 mg/dL (8.5-10.1); Chloride 112 mmol/L (98-107); Creatinine, Serum 1.31 mg/dL (0.55-1.02); EST Glomerular Filtration Rate 42 mL/min (>60); Est Glom Filt Rate - Afr Amer 51 mL/min (>60); Estimated Creatinine Clearance 34.97 ml/min; Glucose 158 mg/dL (74-106); Potassium 4.3 mmol/L (3.5-5.1); Sodium Level 139 mmol/L (136-145)
[2020-09-24 20:30] LABS: Polychromasia 1+
[2020-09-24 20:31] LABS: Differential Comment SCANNED
--- NOTE | 2020-09-24 21:05 | PCM.HP.STD ---
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 transplanted heart: belkofski heart Qualified Code(s): I25.10 - Atherosclerotic heart disease of belk[place]ski coro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 pectoris (8) Chronic atrial fibrillation Status: Chronic (9) HLD (hyperlipidemia) Status: Chronic Qualifiers: Hyperlipidemia type: unspecified Qualified Code(s): E78.5 - Hyperlipidemia, unspecified (10) Nonrheumatic aortic (valve) stenosis Status: Chronic (11) Other secondary pulmonary hypertension Status: Chronic (12) Acute blood loss anemia Status: Acute History of Present Illness Date of Admission: 09/24/20 Chief Complaint: syncope The patient is a 75 year old F with a significant history of IVC filter; essential hypertension; GI bleed; nonrheumatic valvular disease; TAVR; chronic anemia who presents emergency department with syncope that started on the same day of presentation. Reportedly patient while sitting on the toilet bowl passed out and fell. Associated for symptoms is weakness; lethargy; and diaphoresis. Fed in the last 3 to 4 days she has had black stools. Also a couple of weeks ago she had red stools which stopped after she stopped taking her iron pill. Patient is on home aspirin. Her last aspirin use was on the same day of presentation. Previously she was on blood thinners for chronic A. fib but that was stopped because of GI bleed. Of note also patient has IVC filter as above. Patient has a Port-A-Cath which previously she used to receive iron infusion from. Patient reports multiple colonoscopy with last colonoscopy in 2019. Of note in the last colonoscopy the polyp was removed. Reportedly the polyp was portion on some arteries. Patient has a history of cauterization via endoscopic procedures. Patient reports that her last EGD may be around 2017. Emergency department doctor reported discussing the case with general surgery who accepted for the patient inpatient. Emergency department doctor reported dark brown stools on rectal examination. Past Medical History Past Medical History (Chronic Problems): Chronic Problems (Last Reviewed 09/24/20 @ 21:[address] 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 Iron deficiency E61.1 Iron deficiency anemia D50.9 Liver disease K76.9 Morbid obesity E66.01 Osteopenia M85.80 Presence of IVC filter Onset Date: 09/2018 Z95.828 Sepsis A41.9 d/t untreated UTI Sepsis secondary to UTI A41.9, N39.0 Type 2 diabetes mellitus E11.9 History of blood transfusion Z92.89 History of pneumonia Z87.01 Hyperkalemia (Resolved) E87.5 Non-ST elevation (NSTEMI) myocardial infarction I21.4 Anemia D64.9 Bloody stool K92.1 Fatigue R53.83 Knee pain M25.569 Nonrheumatic mitral (valve) insufficiency (Inactive) I34.0 Nonrheumatic tricuspid (valve) insufficiency (Inactive) I36.1 Allergies pravastatin Adverse Reaction (Severe, Verified 09/24/20 19:20) severe muscle and joint pain Home Medications: Ambulatory Orders Medication Instructions Recorded Cholecalciferol (Vitamin D3) 2,000 unit PO DAILY 11/18/17 [Vitamin D3] Ropinirole HCl [Requip] 0.25 mg PO QHS 11/18/17 Sildenafil Citrate [Revatio] 20 mg PO TID 11/18/17 Aspirin E.C. [Ecotrin] 81 mg PO DAILY 10/07/18 magnesium 250 mg tablet 250 mg PO DAILY 10/09/18 potassium chloride 10 mEq 40 meq PO DAILY PRN 10/09/18 capsule,extended release ferrous sulfate 325 mg (65 mg 325 mg PO DAILY 04/14/19 iron) tablet metoprolol succinate 100 mg 50 mg PO DAILY tab 11/03/19 tablet,extended release 24 hr amoxicillin 500 mg tablet 500 mg PO .COMPLEX #4 tab 05/10/20 ascorbic acid (vitamin C) 500 mg 500 mg PO DAILY 05/10/20 capsule cyanocobalamin (vitamin B-12) 2,500 mcg SUBLINGUAL .QOD ea 05/10/20 2,500 mcg sublingual lozenge furosemide 40 mg tablet 40 mg PO DAILY PRN 05/10/20 melatonin 5 mg capsule 5 mg PO QHS 05/10/20 pantoprazole 40 mg tablet,delayed 40 mg PO DAILY tab 05/10/20 release amlodipine 10 mg tablet 10 mg PO DAILY #90 tab 08/30/20 Surgical History: Surgical History (Last Reviewed 09/24/20 @ 21:[address] Marlon Barcenas MD) H/O aortic valve replacement (Resolved) Onset Date: 09/15/18 Z95.2 Navarrete-Rohini Prosthetic Aortic Valve #26 09/15/2018 History of appendectomy Z98.890, Z90.49 History of hysterectomy Z98.890, Z90.710 History of left heart catheterization (LHC) Onset Date: 04/10/17 Z98.890 LHC: 07/30/2006; 04/10/17 Status post right foot surgery Z98.890 1986 coil embolization of colonic artery Surgical History: appendectomy, hysterectomy, - - R foot surgery. 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 Marlon Barcenas MD) Mother Uterine cancer Hypertension Father Heart disease Diabetes CAD (coronary artery disease) Hypertension History Items: - - Mother with a history of hypertension, uterine cancer. Paternal Family History: Family History (Last Reviewed 09/24/20 @ 21:[address] Marlon Barcenas MD) Mother Uterine cancer Hypertension Father Heart disease Diabetes CAD (coronary artery disease) Hypertension History Items: - - Father with a history of coronary artery disease, diabetes, heart disease, hypertension. Review of Systems Constitutional: Reports: Weakness, Fatigue. Denies: Chills, Fever, Weight Change HEENT: Denies: Head Aches, Sinus Congestion, Sinus Drainage Cardiovascular: Denies: Chest Pain, Palpitations Respiratory: Denies: Cough, Shortness of breath at rest, Sputum production Gastrointestinal: Reports: Nausea, Melena. Denies: Abdominal Pain, Vomiting Genitourinary: Denies: Dysuria Musculoskeletal: Denies: Joint Pain, Joint Tenderness Skin: Denies: Rash, Wounds Neurological: Denies: Numbness, Tingling, Focal weakness Psychiatric: Denies: Anxiety, Depression, Homicidal Ideations, Suicidal Ideations Hematologic/ Lymphatic: Denies: Easy Bruising, Easy Bleeding VTE Information - Inpt Only VTE Present on Admission: No VTE Mechan Device Prophylaxis: SCD's VTE Pharm Prophylaxis ordered?: No Patient Problems: Active and Suspected Problems (Last Reviewed 09/24/20 @ 21:[address] Marlon Barcenas MD) Acute blood loss anemia (Acute) - Physical Exam Vitals/I&O's: Vital Signs Temp Pulse Resp BP Pulse Ox 97.9 F 100 22 H 151/99 H 97 09/24/20 20:59 09/24/20 20:59 09/24/20 20:59 09/24/20 20:59 09/24/20 20:59 Oxygen Delivery Method Room Air Weight: 133.8 kg Body Mass Index (BMI) 46.2 General: Alert, Oriented x3, Cooperative HEENT: Atraumatic, PERRLA, EOMI, Normocephalic Neck: Supple, No JVD, Negative Carotid Bruits Lungs: Clear to auscultation, Normal air movement, No rhonchi, No wheeze, No rales Cardiovascular: Regular rate, Regular Rhythm, Normal S1, Normal S2, No murmurs Abdomen: Bowel Sounds Present, Soft, Non Tender Extremities: Capillary Refill Less than 3 Seconds, Edema - 1+ bilateral feet; left feet worse than right feet. Skin: No rashes, No breakdown, - - Pale Musculoskeletal: No Tenderness to Palpation of Joints or Extremities Neurological: Cranial nerves II-XII grossly intact Psych/Mental Status: Anxious Laboratory Results 09/24/20 19:55: WBC 10.6, RBC 1.55 L, Hgb 4.7 L*, Hct 15.9 L, MCV 102.6 H, MCH 30.3, MCHC 29.6 L, RDW Std Deviation 53.2 H, RDW Coeff of Fariba 15.3 H, Plt Count 127 L, MPV 12.8 H, Immature Gran % (Auto) 0.800, Neut % (Auto) 88.4 H, Lymph % (Auto) 7.7 L, [place] % (Auto) 2.8, Eos % (Auto) 0.0, Baso % (Auto) 0.3, Absolute Neuts (auto) 9.4 H, Absolute Lymphs (auto) 0.82 L, Nucleated RBC % 0, Differential Comment SCANNED, Diff Path Review May foll, Polychromasia 1+ 09/24/20 19:55: Sodium 139, Potassium 4.3, Chloride 112 H, Carbon Dioxide 19.0 L, Anion Gap 8, BUN 63 H, Creatinine 1.31 H, Estim Creat Clear Calc 34.97, Est GFR (MDRD) Af Amer 51 L, Est GFR (MDRD) Non-Af 42 L, BUN/Creatinine Ratio 48.1 H, Glucose 158 H, Calcium 8.3 L 09/24/20 20:15: Blood Type Pending, Antibody Screen Pending 09/24/20 20:15: Crossmatch See Detail Assessment/Plan All Active Problems (Last Reviewed 09/24/20 @ 21:[address] Marlon Barcenas MD) Acute blood loss anemia (Acute) H/O aortic valve replacement (Resolved 09/15/18) Acute kidney injury (Resolved) Colon polyp (Resolved) Encounter for insertion of venous access port (Resolved) Hyperkalemia (Resolved) Urinary tract infection (Resolved) The patient is a 75 year old F with a significant history of IVC filter; essential hypertension; GI bleed; nonrheumatic valvular disease; TAVR; chronic anemia who presents emergency department with syncope; weakness; melena; lethargy; and diaphoresis. Acute blood loss anemia Hemoglobin of 4.7 at the emergency department. Hemoglobin in 2020 was around 12. RBC low at 1.55. Hematocrit low at 15.9. Macrocytic anemia with MCV of 102.6. BUN of 63. Review of old records shows elevated BUN above baseline. Her BUN in 2020 was 22 and 25. Her creatinine remains within her baseline. Hemoccult ordered at the emergency department; follow Discussed emergent department doctor to get PT/INR. Six units of blood ordered at emergency department with 2 to be transfused. Nursing communication to get H&H after second unit of blood has been transfused. Protonix bolus ordered emergency department. Hold home p.o. Protonix. Protonix infusion ordered. N.p.o. except meds. Hold home iron tablets. Vitamin B12 continued. Review of outpatients supervisor waterproofing notes shows that patient has been on iron supplement for years. She has received IV iron since 2017 and needed blood transfusion on several occasion for severe symptomatic anemia. She was on Coumadin which was discontinued because of GI bleed. Review of old records show the patient had EGD and colonoscopy on 12/01/2017 at our hospital. The procedure was done by Dr. Bobbi Birmingham and the procedure was unremarkable. Emergent dependent discussed the case with Dr. Snyder, general surgeon. Inpatient general surgery consult placed. Syncope Likely secondary to acute blood loss anemia Blood transfusion as above Orthostatic vitals per protocol. Non-anion gap metabolic acidosis Bicarbonate of 19 anion gap of 8. Likely from GI causes. Hyperchloremia Chronic. Hypertension Blood pressure is now within goal. However with a GI bleed hold of home blood pressure medications. As needed hydralazine ordered for systolic blood pressure more than 180 or diastolic blood pressure more than 120 History of hypomagnesemia. On home magnesium. Hold for now. Magnesium in a.m. Restless leg syndrome: Requip continued Chronic diastolic heart failure/Severe pulmonary hypertension: Echocardiogram on 02/03/2020: Estimated ejection fraction was 60%. Left atrium was severely enlarged. Right atrium was severely enlarged. Mild valvular insufficiency. Pulmonary artery was normal size. Sildenafil continued. On home as needed Lasix that she has not used for a while. Cautious use of fluids. Follows up with cardiology and Dr. Nelson, medical technologist. CKD stage III Stable. Chronic lymphedema: Stable. No intervention at this time. Morbid Obesity: BMI of 45.3. Complicates care. Lifestyle modification recommended. DVT prophylaxis SCD ordered. No chemical thromboprophylaxis because of GI bleed. Inpatient E&M: 91596 Init Hosp L3
[2020-09-24 21:13] LABS: International Normalized Ratio 1.3; Prothrombin Time (Protime)PT. 15.4 SECONDS (11.7-14.9)
[2020-09-24] MEDS: MELATONIN 10 MG TABLET 5 MG PO (22:12)
[2020-09-24] MEDS: SILDENAFIL CITRATE 20 MG TABLET PO (22:12)
[2020-09-24] MEDS: Pramipexole Di-HCl 0.125 MG Tablet PO (22:12)
[2020-09-24] MEDS: 0.9% Saline Lock 10 ML Syringe IV (22:13)
--- NOTE | 2020-09-24 22:35 | PCS.PANDOC ---
PANDEMIC DOCUMENTATION INITIATED: Date: 09/24/20 Time: 21:17
--- NOTE | 2020-09-24 23:32 | PCM.PN.BLA ---
Progress Note Change from IV drip Protonix to IVP Protonix as there is no extra IV access STROKE Vital Signs/Narrative: Vital Signs Temp Pulse Resp BP Pulse Ox 09/24/20 23:15 98.9 F 79 16 130/49 H 93 09/24/20 22:15 98.8 F 83 16 139/61 H 98 09/24/20 21:55 98.1 F 90 16 142/62 H 98 09/24/20 21:45 89 09/24/20 21:30 98.4 F 95 18 128/47 H 100 09/24/20 20:59 97.9 F 100 22 H 151/99 H 97 09/24/20 20:23 93 18 168/73 H 95
[2020-09-25] VITALS (24 sets, daily range): BP systolic 103–140; BP diastolic 42–64; PULSE 61–95; RESP 16–18; TEMP 36.8–37.2; O2SAT 92–100
[2020-09-25] MEDS: 0.9% Saline Lock 10 ML Syringe IV ×5 (05:12→22:40)
[2020-09-25] MEDS: SILDENAFIL CITRATE 20 MG TABLET PO ×3 (05:57→21:57)
[2020-09-25 07:28] LABS: Absolute Lymphocyte Count 1.39 X10^3/uL (0.83-4.51); Absolute Neutrophil Count 7.5 X10^3/uL (2.0-7.7); Basophil# 0.03 X10^3/uL; Basophil% 0.3 % (0-1); Eosinophil# 0.01 X10^3/uL; Eosinophils% 0.1 % (0-5); Hematocrit 20.4 % (37-47); Hemoglobin 6.4 g/dL (12.0-15.0); Lymphocyte # 1.39 X10^3/ul (4.0); Lymphocyte % 14.9 % (19-41); Mean Corp Hgb Conc 31.4 g/dL (32-36); Mean Corpuscular Hgb 30.2 pg (27.0-32.0); Mean Corpuscular Volume 96.2 fL (81-99); Mean Platelet Vol. 12.9 fl (6.2-12.0); Monocyte# 0.39 X10^3/uL; Monocyte% 4.2 % (0-10); NRBC Flagged by Analyzer 0.2 % (0-5); Neutrophil # 7.48 X10^3/uL (2.7-7.7); Platelet Count 164 K/mm3 (150-450); RBC Distribution Width CV 15.7 % (11.6-14.6); RBC Distribution Width SD 51.1 fl (35.1-43.9); Red Blood Count 2.12 M/mm3 (4.2-5.4); White Blood Count 9.4 K/mm3 (4.4-11.0)
--- NOTE | 2020-09-25 07:31 | PN_ITS ---
Patient Problems: Active and Suspected Problems (Last Reviewed 09/24/20 @ 21:[address] Marlon Barcenas MD) Acute blood loss anemia (Acute) Vitals/I&O's: Vital Signs Temp Pulse Resp BP Pulse Ox 98.4 F 76 16 133/52 H 95 09/25/20 05:07 09/25/20 06:48 09/25/20 05:07 09/25/20 05:07 09/25/20 05:07 Oxygen Delivery Method Room Air Weight: 131.1 kg Body Mass Index (BMI) 45.2 Orthostatic Vital Signs Start: 09/25/20 01:56 Freq: q24h Status: Active Protocol: Activity Type Activity Date Activity User E-Sign Co-Sign Detail Recorded Client Recorded Date Recorded By Document 09/25/20 00:45 Jayla [id number] 09/25/20 01:58 SHERYL 09/25/20 00:45 Orthostatic Vitals Standing -Blood Pressure (90/60-120/80 mm Hg) 133/50 H -Extremity Use Right Arm -Pulse Rate (60-100 beats/min) 95 Sitting -Blood Pressure (90/60-120/80 mm Hg) 110/56 L -Extremity Use Right Arm -Pulse Rate (60-100 beats/min) 91 Lying -Blood Pressure (90/60-120/80 mm Hg) 124/54 H -Extremity Use Right Arm -Pulse Rate (60-100 beats/min) 86 Intake and Output for Last 24 Hours 09/23/20 09/24/20 09/25/20 23:59 23:59 23:59 Intake Total 35 / 35 910 / 910 Output Total 800 / 800 Balance 35 / 35 110 / 110 Laboratory Results 09/24/20 19:55: WBC 10.6, RBC 1.55 L, Hgb 4.7 L*, Hct 15.9 L, MCV 102.6 H, MCH 30.3, MCHC 29.6 L, RDW Std Deviation 53.2 H, RDW Coeff of Fariba 15.3 H, Plt Count 127 L, MPV 12.8 H, Immature Gran % (Auto) 0.800, Neut % (Auto) 88.4 H, Lymph % (Auto) 7.7 L, [place] % (Auto) 2.8, Eos % (Auto) 0.0, Baso % (Auto) 0.3, Absolute Neuts (auto) 9.4 H, Absolute Lymphs (auto) 0.82 L, Nucleated RBC % 0, Differential Comment SCANNED, Diff Path Review December foll, Polychromasia 1+ 09/24/20 19:55: Sodium 139, Potassium 4.3, Chloride 112 H, Carbon Dioxide 19.0 L , Anion Gap 8, BUN 63 H, Creatinine 1.31 H, Estim Creat Clear Calc 34.97, Est GFR (MDRD) Af Amer 51 L, Est GFR (MDRD) Non-Af 42 L, BUN/Creatinine Ratio 48.1 H , Glucose 158 H, Calcium 8.3 L 09/24/20 20:15: Blood Type A POSITIVE, Antibody Screen NEGATIVE 09/24/20 20:15: Crossmatch See Detail 09/24/20 20:15: PT 15.4 H, INR 1.3, APTT 29.0 09/25/20 06:00: Sodium Pending, Potassium Pending, Chloride Pending, Carbon Dioxide Pending, Anion Gap Pending, BUN Pending, Creatinine Pending, Est GFR (MDRD) Af Amer Pending, Est GFR (MDRD) Non-Af Pending, BUN/Creatinine Ratio Pending, Glucose Pending, Calcium Pending, Magnesium Pending 09/25/20 06:00: WBC Pending, RBC Pending, Hgb Pending, Hct Pending, MCV Pending, MCH Pending, MCHC Pending, RDW Std Deviation Pending, RDW Coeff of Fariba Pending, Plt Count Pending, Neut % (Auto) Pending, Absolute Neuts (auto) Pending Current Medications Acetaminophen (Acetaminophen 325 Mg Tablet) 650 mg PO Q6H PRN PRN PRN Reason: Pain Score 1-10/Temp > 100.7 F Cyanocobalamin (Cyanocobalamin 500 Mcg Tablet) 2,500 mcg PO QODAY [facility] Heparin Sodium (Beef Lung) (Heparin Pf Lock 10 Units/Ml 50 Units/5 Ml Syringe) 50 units IV UD PRN PRN Reason: R Port Heparin Flush Hydralazine HCl (Hydralazine 20 Mg/Ml Vial) 5 mg IV Q4H PRN PRN PRN Reason: SBP > 180 or DBP > 120 Pantoprazole Sodium 40 mg/ (Sodium Chloride) 110 mls @ 330 mls/hr IV Q12 [facility] Last Infusion: 09/25/20 05:49 Dose: Infused Documented by: Melatonin (Melatonin 10 Mg Tablet) 5 mg PO QHS [facility] Last Admin: 09/24/20 22:12 Dose: 5 mg Documented by: Ondansetron HCl (Ondansetron 4 Mg/2 Ml Vial) 4 mg IV Q8H PRN PRN PRN Reason: NAUSEA/VOMITING Pramipexole Dihydrochloride (Pramipexole Di-Hcl 0.125 Mg Tablet) 0.125 mg PO QHS [facility] Last Admin: 09/24/20 22:12 Dose: 0.125 mg Documented by: Sildenafil Citrate (Sildenafil Citrate 20 Mg Tablet) 20 mg PO TID [facility] Last Admin: 09/25/20 05:57 Dose: 20 mg Documented by: Sodium Chloride (0.9% Saline Lock 10 Ml Syringe) 10 - 40 ml IV UD PRN PRN Reason: R Port Saline Flush Last Admin: 09/25/20 05:12 Dose: 20 ml Documented by: Sodium Chloride (0.9 % Nacl (Sterile) Posiflush 10 Ml) 10 - 40 ml IV UD PRN PRN Reason: Port access or dressing change STROKE Vital Signs/Narrative: Vital Signs Temp Pulse Resp BP Pulse Ox 09/25/20 06:48 76 09/25/20 05:07 98.4 F 76 16 133/52 H 95 09/25/20 04:10 98.7 F 76 18 131/48 H 95 Medical Necessity - Tobacco Use Smoking Status: Never smoker Assessment/Plan All Active Problems (Last Reviewed 09/24/20 @ 21:[address] Marlon Barcenas MD) Acute blood loss anemia (Acute) H/O aortic valve replacement (Resolved 09/15/18) Acute kidney injury (Resolved) Colon polyp (Resolved) Encounter for insertion of venous access port (Resolved) Hyperkalemia (Resolved) Urinary tract infection (Resolved) Inpatient E&M: 24375 Subs Hosp L2
[2020-09-25 07:57] LABS: Anion Gap 7 (5-15); BUN 58 mg/dL (7-18); BUN/Creat Ratio 47.2 RATIO (10-20); Calcium,Total 8.2 mg/dL (8.5-10.1); Chloride 114 mmol/L (98-107); Creatinine, Serum 1.23 mg/dL (0.55-1.02); EST Glomerular Filtration Rate 45 mL/min (>60); Est Glom Filt Rate - Afr Amer 54 mL/min (>60); Estimated Creatinine Clearance 37.25 ml/min; Glucose 103 mg/dL (74-106); Magnesium 2.2 mg/dL (1.6-2.6); Potassium 3.9 mmol/L (3.5-5.1); Sodium Level 143 mmol/L (136-145)
[2020-09-25] MEDS: Furosemide 40 MG/4 ML Vial IV (09:06)
--- NOTE | 2020-09-25 09:47 | PCM.CONS.GEN ---
Problem List (1) Acute blood loss anemia Status: Acute (2) Iron deficiency anemia due to chronic blood loss Status: Chronic Reason for Consult Date of Consultation: 09/25/20 History of Present Illness: The patient is a 75 year old F with a significant history of IVC filter; essential hypertension; GI bleed; nonrheumatic valvular disease; TAVR; chronic anemia who presents emergency department with syncope that started on the same day of presentation. Reportedly patient while sitting on the toilet bowl passed out and fell. Associated for symptoms is weakness; lethargy; and diaphoresis. Fed in the last 3 to 4 days she has had black stools. Also a couple of weeks ago she had red stools which stopped after she stopped taking her iron pill. Patient is on home aspirin. Her last aspirin use was on the same day of presentation. Previously she was on blood thinners for chronic A. fib but that was stopped because of GI bleed. Of note also patient has IVC filter as above. Patient has a Port-A-Cath which previously she used to receive iron infusion from. Patient reports multiple colonoscopy with last colonoscopy in 2019. Of note in the last colonoscopy the polyp was removed. Reportedly the polyp was portion on some arteries. Patient has a history of cauterization via endoscopic procedures. Patient reports that her last EGD may be around 2017. Emergency department doctor reported discussing the case with general surgery who accepted for the patient inpatient. Emergency department doctor reported dark brown stools on rectal examination. While being in the hospital overnight she has not been complaining of any abdominal pain she has had no nausea or vomiting and she has had no further rectal bleeding with either black tarry stools, melena, or hematochezia. She has responded appropriately to her blood transfusion which did increase her hemoglobin level by more than 2 points. Past Medical History Past Medical History (Chronic Problems): Chronic Problems (Last Reviewed 09/25/20 @ 10:[address] Champ Snyder MD) Iron deficiency anemia due to chronic blood loss (Chronic) Chronic GI bleeding (Chronic) Chronic diastolic (congestive) heart failure (Chronic) Essential (primary) hypertension (Chronic) Hyperlipidemia (Chronic) Atherosclerotic heart disease of [place] coro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 pectoris (Chronic) Chronic atrial fibrillation (Chronic) HLD (hyperlipidemia) (Chronic) Nonrheumatic aortic (valve) stenosis (Chronic) Other secondary pulmonary hypertension (Chronic) Medical History: Medical History (Last Reviewed 09/25/20 @ 10:[address] Champ Snyder MD) Chronic diastolic (congestive) heart failure (Chronic) I50.32 Essential (primary) hypertension (Chronic) I10 Hyperlipidemia (Chronic) E78.5 Atherosclerotic heart disease of [place] coro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 pectoris (Chronic) I25.10 Chronic atrial fibrillation (Chronic) I48.2 HLD (hyperlipidemia) (Chronic) E78.5 Nonrheumatic aortic (valve) stenosis (Chronic) I35.0 Other secondary pulmonary hypertension (Chronic) I27.29 Anemia D64.9 Anemia in chronic kidney disease (CKD) N18.9, D63.1 Arthritis M19.90 CRF (chronic renal failure) N18.9 Diverticulitis K57.92 History of GI bleed Z87.19 multiple; most recent hospitalization 03/16/18-03/19/18 at [place] ([facility]) APR 2019 GI BLEED [facility] Iron deficiency E61.1 Iron deficiency anemia D50.9 Liver disease K76.9 Morbid obesity E66.01 Osteopenia M85.80 Presence of IVC filter Onset Date: 09/2018 Z95.828 Sepsis A41.9 d/t untreated UTI Sepsis secondary to UTI A41.9, N39.0 Type 2 diabetes mellitus E11.9 History of blood transfusion Z92.89 History of pneumonia Z87.01 Hyperkalemia (Resolved) E87.5 Non-ST elevation (NSTEMI) myocardial infarction I21.4 Anemia D64.9 Bloody stool K92.1 Fatigue R53.83 Knee pain M25.569 Nonrheumatic mitral (valve) insufficiency (Inactive) I34.0 Nonrheumatic tricuspid (valve) insufficiency (Inactive) I36.1 Allergies pravastatin Adverse Reaction (Severe, Verified 09/24/20 21:31) severe muscle and joint pain Home Medications: Ambulatory Orders Medication Instructions Recorded Cholecalciferol (Vitamin D3) 2,000 unit PO DAILY 11/18/17 [Vitamin D3] Ropinirole HCl [Requip] 0.25 mg PO QHS 11/18/17 Sildenafil Citrate [Revatio] 20 mg PO TID 11/18/17 magnesium 250 mg tablet 250 mg PO DAILY 10/09/18 potassium chloride 10 mEq 40 meq PO DAILY PRN PRN 10/09/18 capsule,extended release ferrous sulfate 325 mg (65 mg 325 mg PO DAILY 04/14/19 iron) tablet metoprolol succinate 100 mg 50 mg PO DAILY tab 11/03/19 tablet,extended release 24 hr ascorbic acid (vitamin C) 500 mg 500 mg PO DAILY 05/10/20 capsule cyanocobalamin (vitamin B-12) 2,500 mcg SUBLINGUAL .QOD ea 05/10/20 2,500 mcg sublingual lozenge furosemide 40 mg tablet 40 mg PO DAILY PRN PRN 05/10/20 melatonin 5 mg capsule 5 mg PO QHS 05/10/20 pantoprazole 40 mg tablet,delayed 40 mg PO DAILY tab 05/10/20 release amlodipine 10 mg tablet 10 mg PO DAILY #90 tab 08/30/20 Amoxicillin 500 mg PO .COMPLEX 09/24/20 Sucralfate [Carafate] 1 gm PO 1HR_ACHS #100 tab 09/25/20 Surgical History: Surgical History (Last Reviewed 09/25/20 @ 10:[address] Champ Snyder MD) H/O aortic valve replacement (Resolved) Onset Date: 09/15/18 Z95.2 Navarrete-Rohini Prosthetic Aortic Valve #26 09/15/2018 History of appendectomy Z98.890, Z90.49 History of hysterectomy Z98.890, Z90.710 History of left heart catheterization (LHC) Onset Date: 04/10/17 Z98.890 LHC: 07/30/2006; 04/10/17 Status post right foot surgery Z98.890 1986 coil embolization of colonic artery Surgical History: appendectomy, hysterectomy, - - R foot surgery. 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 Marlon Barcenas MD) Mother Uterine cancer Hypertension Father Heart disease Diabetes CAD (coronary artery disease) Hypertension History Items: - - Mother with a history of hypertension, uterine cancer. Paternal Family History: Family History (Last Reviewed 09/24/20 @ 21:[address] Marlon Barcenas MD) Mother Uterine cancer Hypertension Father Heart disease Diabetes CAD (coronary artery disease) Hypertension History Items: - - Father with a history of coronary artery disease, diabetes, heart disease, hypertension. Review of Systems Constitutional: Denies: Chills, Fever, Weight Change Cardiovascular: Denies: Chest Pain, Chest Pressure, Chest Tightness, Palpitations Respiratory: Denies: Cough, Hemoptysis, Shortness of breath at rest, Shortness of breath upon exertion, Wheezing Gastrointestinal: Denies: Abdominal Pain, Constipation, Diarrhea, Hematemesis, Nausea, Melena, Vomiting Patient Problems: Active and Suspected Problems (Last Reviewed 09/25/20 @ 10:[address] Champ Snyder MD) Acute blood loss anemia (Acute) - Physical Exam Vitals/I&O's: Vital Signs Temp Pulse Resp BP Pulse Ox 98.8 F 80 18 139/54 H 99 09/25/20 09:07 09/25/20 09:07 09/25/20 09:07 09/25/20 09:07 09/25/20 09:07 Oxygen Delivery Method Room Air Weight: 289 lb 0.416 oz Body Mass Index (BMI) 45.2 Orthostatic Vital Signs Start: 09/25/20 01:56 Freq: q24h Status: Active Protocol: Activity Type Activity Date Activity User E-Sign Co-Sign Detail Recorded Client Recorded Date Recorded By Document 09/25/20 00:45 SHERYL [id number] 09/25/20 01:58 SHERYL 09/25/20 00:45 Orthostatic Vitals Standing -Blood Pressure (90/60-120/80) 133/50 H -Extremity Use Right Arm -Pulse Rate (60-100) 95 Sitting -Blood Pressure (90/60-120/80) 110/56 L -Extremity Use Right Arm -Pulse Rate (60-100) 91 Lying -Blood Pressure (90/60-120/80) 124/54 H -Extremity Use Right Arm -Pulse Rate (60-100) 86 Intake and Output for Last 24 Hours 09/23/20 09/24/20 09/25/20 23:59 23:59 23:59 Intake Total 35 / 35 1020 / 1020 Output Total 800 / 800 Balance 35 / 35 220 / 220 General: Alert, Oriented x3 Lungs: Clear to auscultation Cardiovascular: Regular rate, Regular Rhythm, No murmurs Abdomen: Bowel Sounds Present, Soft, Non Tender, Non-Distended Laboratory Results 09/24/20 19:55: WBC 10.6, RBC 1.55 L, Hgb 4.7 L*, Hct 15.9 L, MCV 102.6 H, MCH 30.3, MCHC 29.6 L, RDW Std Deviation 53.2 H, RDW Coeff of Fariba 15.3 H, Plt Count 127 L, MPV 12.8 H, Immature Gran % (Auto) 0.800, Neut % (Auto) 88.4 H, Lymph % (Auto) 7.7 L, [place] % (Auto) 2.8, Eos % (Auto) 0.0, Baso % (Auto) 0.3, Absolute Neuts (auto) 9.4 H, Absolute Lymphs (auto) 0.82 L, Nucleated RBC % 0, Differential Comment SCANNED, Diff Path Review December, Polychromasia 1+ 09/24/20 19:55: Sodium 139, Potassium 4.3, Chloride 112 H, Carbon Dioxide 19.0 L, Anion Gap 8, BUN 63 H, Creatinine 1.31 H, Estim Creat Clear Calc 34.97, Est GFR (MDRD) Af Amer 51 L, Est GFR (MDRD) Non-Af 42 L, BUN/Creatinine Ratio 48.1 H, Glucose 158 H, Calcium 8.3 L 09/24/20 20:15: Blood Type A POSITIVE, Antibody Screen NEGATIVE 09/24/20 20:15: Crossmatch See Detail 09/24/20 20:15: PT 15.4 H, INR 1.3, APTT 29.0 09/25/20 06:00: Sodium 143, Potassium 3.9, Chloride 114 H, Carbon Dioxide 22.0, Anion Gap 7, BUN 58 H, Creatinine 1.23 H, Estim Creat Clear Calc 37.25, Est GFR (MDRD) Af Amer 54 L, Est GFR (MDRD) Non-Af 45 L, BUN/Creatinine Ratio 47.2 H, Glucose 103, Calcium 8.2 L, Magnesium 2.2 09/25/20 06:00: WBC 9.4, RBC 2.12 L, Hgb 6.4 L, Hct 20.4 L, MCV 96.2 D, MCH 30.2, MCHC 31.4 L D, RDW Std Deviation 51.1 H, RDW Coeff of Fariba 15.7 H, Plt Count 164, MPV 12.9 H, Immature Gran % (Auto) 0.500, Neut % (Auto) 80.0 H, Lymph % (Auto) 14.9 L, [place] % (Auto) 4.2, Eos % (Auto) 0.1, Baso % (Auto) 0.3, Absolute Neuts (auto) 7.5, Absolute Lymphs (auto) 1.39, Nucleated RBC % 0.2 Current Medications Acetaminophen (Acetaminophen 325 Mg Tablet) 650 mg PO Q6H PRN PRN PRN Reason: Pain Score 1-10/Temp > 100.7 F Cyanocobalamin (Cyanocobalamin 500 Mcg Tablet) 2,500 mcg PO QODAY [facility] Heparin Sodium (Beef Lung) (Heparin Pf Lock 10 Units/Ml 50 Units/5 Ml Syringe) 50 units IV UD PRN PRN Reason: R Port Heparin Flush Hydralazine HCl (Hydralazine 20 Mg/Ml Vial) 5 mg IV Q4H PRN PRN PRN Reason: SBP > 180 or DBP > 120 Pantoprazole Sodium 40 mg/ (Sodium Chloride) 110 mls @ 330 mls/hr IV Q12 [facility] Last Infusion: 09/25/20 08:55 Dose: Infused Documented by: Melatonin (Melatonin 10 Mg Tablet) 5 mg PO QHS [facility] Last Admin: 09/24/20 22:12 Dose: 5 mg Documented by: Ondansetron HCl (Ondansetron 4 Mg/2 Ml Vial) 4 mg IV Q8H PRN PRN PRN Reason: NAUSEA/VOMITING Pramipexole Dihydrochloride (Pramipexole Di-Hcl 0.125 Mg Tablet) 0.125 mg PO QHS [facility] Last Admin: 09/24/20 22:12 Dose: 0.125 mg Documented by: Sildenafil Citrate (Sildenafil Citrate 20 Mg Tablet) 20 mg PO TID [facility] Last Admin: 09/25/20 05:57 Dose: 20 mg Documented by: Sodium Chloride (0.9% Saline Lock 10 Ml Syringe) 10 - 40 ml IV UD PRN PRN Reason: R Port Saline Flush Last Admin: 09/25/20 09:06 Dose: 10 ml Documented by: Sodium Chloride (0.9 % Nacl (Sterile) Posiflush 10 Ml) 10 - 40 ml IV UD PRN PRN Reason: Port access or dressing change Assessment/Plan All Active Problems (Last Reviewed 09/25/20 @ 10:[address] Champ Snyder MD) Acute blood loss anemia (Acute) H/O aortic valve replacement (Resolved 09/15/18) Acute kidney injury (Resolved) Colon polyp (Resolved) Encounter for insertion of venous access port (Resolved) Hyperkalemia (Resolved) Urinary tract infection (Resolved) At the present time the patient does not have any signs of bleeding. She is responded well to receiving blood and will be getting a total of 4 units. She has been on a proton pump inhibitor for a long time. I do not think that there is really any need for colonoscopy on this patient. And in fact if she was bleeding the most likely source would be upper. But I do not think that there is an urgent need at this point to do an upper endoscopy on her. I have discussed the case with the hospitalist. And I think once we have her take the with 4 units of blood and she still shows no signs of bleeding I could successfully treat her and evaluate her with an upper endoscopy as an outpatient. If however she notices melanotic stool over the next 24 hours then doing an upper endoscopy on her probably would be useful while she is in the hospital. But since she is not actively bleeding I do not think there is anything therapeutic that I need to do at this time on her.
--- NOTE | 2020-09-25 12:30 | DCINST_ITS ---
- Discharge Diagnoses Current Active Problems: Current Active and Chronic Problems (Last Reviewed 09/25/20 @ 10:[address] Champ Snyder MD) Acute blood loss anemia (Acute) Iron deficiency anemia due to chronic blood loss (Chronic) Chronic GI bleeding (Chronic) Chronic diastolic (congestive) heart failure (Chronic) Essential (primary) hypertension (Chronic) Hyperlipidemia (Chronic) Atherosclerotic heart disease of [place] coro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 pectoris (Chronic) Chronic atrial fibrillation (Chronic) HLD (hyperlipidemia) (Chronic) Nonrheumatic aortic (valve) stenosis (Chronic) Other secondary pulmonary hypertension (Chronic) Reason(s) for Visit for Discharge Instructions: Syncope You will use the following diet at home:: Cardiac Your food should be the consistency of: Regular Your liquids should be the consistency of: Regular/Thin Discharge Activity: Return to Normal Activity Additional Instructions: Continue to monitor your stools for bleeding. Report back to the ED if you continue to bleed. Otherwise follow-up with Dr. Snyder in the outpatient for outpatient EGD and colonoscopy. Allergies/Adverse Reactions: Allergies pravastatin Adverse Reaction (Severe, Verified 09/24/20 21:31) severe muscle and joint pain Medications to take at Discharge Cholecalciferol (Vitamin D3) [Vitamin D3] 2,000 unit PO DAILY 11/18/17 Ropinirole HCl [Requip] 0.25 mg PO QHS 11/18/17 Sildenafil Citrate [Revatio] 20 mg PO TID 11/18/17 magnesium 250 mg tablet 250 mg PO DAILY 10/09/18 potassium chloride 10 mEq capsule,extended release 40 meq PO DAILY PRN PRN 10/09/18 ferrous sulfate 325 mg (65 mg iron) tablet 325 mg PO DAILY 04/14/19 metoprolol succinate 100 mg tablet,extended release 24 hr 50 mg PO DAILY tab 11/03/19 ascorbic acid (vitamin C) 500 mg capsule 500 mg PO DAILY 05/10/20 cyanocobalamin (vitamin B-12) 2,500 mcg sublingual lozenge 2,500 mcg SUBLINGUAL .QOD ea 05/10/20 furosemide 40 mg tablet 40 mg PO DAILY PRN PRN 05/10/20 melatonin 5 mg capsule 5 mg PO QHS 05/10/20 pantoprazole 40 mg tablet,delayed release 40 mg PO DAILY tab 05/10/20 amlodipine 10 mg tablet 10 mg PO DAILY #90 tab 08/30/20 Amoxicillin 500 mg PO .COMPLEX 09/24/20 Sucralfate [Carafate] 1 gm PO 1HR_ACHS #100 tab 09/25/20 The following prescriptions were given: Sucralfate [Carafate] 1 gm PO 1HR_ACHS #100 tab Transmission Status: Pending to [id number] Primary Care Physician: Jyothi Weber MANUFACTURING TEST TECHNICIAN, MANUFACTURING TEST TECHNICIAN-C [Primary Care Provider] - Please follow up with your Primary Care Physician in: within 1-2 weeks Test Results: Test results from this visit will be discussed in further detail at your follow- up appointment, if applicable. Please Follow Up With: Champ Snyder MD When: within 1 week Proposed Discharge Date: 09/25/20
--- NOTE | 2020-09-25 12:32 | DS.PCM_ITS ---
Discharge Date and Diagnosis - Problem List Patient Problems: Active and Suspected Problems (Last Reviewed 09/25/20 @ 10:[address] Champ Snyder MD) Acute blood loss anemia (Acute) Date of Admission: 09/24/20 Date of Discharge: 09/25/20 - Primary Discharge Diagnosis Acute Problems: Active Problems (Last Reviewed 09/25/20 @ 10:[address] Champ Snyder MD) Acute blood loss anemia (Acute) Syncope Metabolic acidosis, non-anion gap - Secondary Discharge Diagnosis Chronic Problems: Chronic Problems (Last Reviewed 09/25/20 @ 10:[address] Champ Snyder MD) Iron deficiency anemia due to chronic blood loss (Chronic) Chronic GI bleeding (Chronic) Chronic diastolic (congestive) heart failure (Chronic) Essential (primary) hypertension (Chronic) Hyperlipidemia (Chronic) Atherosclerotic heart disease of [place] coro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 pectoris (Chronic) Chronic atrial fibrillation (Chronic) HLD (hyperlipidemia) (Chronic) Nonrheumatic aortic (valve) stenosis (Chronic) Other secondary pulmonary hypertension (Chronic) Hospital Course and Treatment Imaging Results: Clinical Impression(s) from Imaging Studies Chest X-Ray 09/24/20 19:40 IMPRESSION: Minimal bibasilar airspace opacities may represent scarring versus consolidation as clinically indicated. Electronically Signed: Davidson Melchor MD at 20:58 EST Tel , Service support , General surgery Operations: None Procedures: None Summary of Care Provided: The patient is a 75 year old F [] Patient Problems: Active and Suspected Problems (Last Reviewed 09/25/20 @ 10:[address] Champ Snyder MD) Acute blood loss anemia (Acute) Subjective: On the day of discharge, patient was seen and examined. Denied any new complaints. No bleeding per rectum seen since admission. Patient has received 4 units of packed RBCs. - Physical Exam Vitals/I&O's: Vital Signs Temp Pulse Resp BP Pulse Ox 98.5 F 70 18 140/64 H 100 09/25/20 12:03 09/25/20 12:03 09/25/20 12:03 09/25/20 12:03 09/25/20 12:03 Oxygen Delivery Method Room Air Weight: 131.1 kg Body Mass Index (BMI) 45.2 Orthostatic Vital Signs Start: 09/25/20 01:56 Freq: q24h Status: Active Protocol: Activity Type Activity Date Activity User E-Sign Co-Sign Detail Recorded Client Recorded Date Recorded By Document 09/25/20 00:45 SHERYL [id number] 09/25/20 01:58 SHERYL 09/25/20 00:45 Orthostatic Vitals Standing -Blood Pressure (90/60-120/80 mm Hg) 133/50 H -Extremity Use Right Arm -Pulse Rate (60-100 beats/min) 95 Sitting -Blood Pressure (90/60-120/80 mm Hg) 110/56 L -Extremity Use Right Arm -Pulse Rate (60-100 beats/min) 91 Lying -Blood Pressure (90/60-120/80 mm Hg) 124/54 H -Extremity Use Right Arm -Pulse Rate (60-100 beats/min) 86 Intake and Output for Last 24 Hours 09/23/20 09/24/20 09/25/20 23:59 23:59 23:59 Intake Total 35 / 35 1020 / 1020 Output Total 800 / 800 Balance 35 / 35 220 / 220 General: Alert, Oriented x3, Cooperative, No apparent distress HEENT: Atraumatic, PERRLA, EOMI, Normocephalic Oral: Moist Mucosa Neck: Supple Lungs: Clear to auscultation, Normal air movement Cardiovascular: Regular rate, Regular Rhythm, Normal S1, Normal S2, Murmur - 4/6 holosystolic murmur, right chest wall Mediport Abdomen: Bowel Sounds Present, Soft, Non Tender, Non-Distended, No Hepato- splenomegaly Extremities: No edema Skin: No rashes Musculoskeletal: No Tenderness to Palpation of Joints or Extremities Lymphatic: No Cervical, Supraclavicular, or Inguinal Adenopathy Neurological: Cranial nerves II-XII grossly intact, Neuro grossly intact Psych/Mental Status: Normal Affect, Appropriate Laboratory Results 09/24/20 19:55: WBC 10.6, RBC 1.55 L, Hgb 4.7 L*, Hct 15.9 L, MCV 102.6 H, MCH 30.3, MCHC 29.6 L, RDW Std Deviation 53.2 H, RDW Coeff of Fariba 15.3 H, Plt Count 127 L, MPV 12.8 H, Immature Gran % (Auto) 0.800, Neut % (Auto) 88.4 H, Lymph % (Auto) 7.7 L, [place] % (Auto) 2.8, Eos % (Auto) 0.0, Baso % (Auto) 0.3, Absolute Neuts (auto) 9.4 H, Absolute Lymphs (auto) 0.82 L, Nucleated RBC % 0, Differential Comment SCANNED, Diff Path Review May foll, Polychromasia 1+ 09/24/20 19:55: Sodium 139, Potassium 4.3, Chloride 112 H, Carbon Dioxide 19.0 L , Anion Gap 8, BUN 63 H, Creatinine 1.31 H, Estim Creat Clear Calc 34.97, Est GFR (MDRD) Af Amer 51 L, Est GFR (MDRD) Non-Af 42 L, BUN/Creatinine Ratio 48.1 H , Glucose 158 H, Calcium 8.3 L 09/24/20 20:15: Blood Type A POSITIVE, Antibody Screen NEGATIVE 09/24/20 20:15: Crossmatch See Detail 09/24/20 20:15: PT 15.4 H, INR 1.3, APTT 29.0 09/25/20 06:00: Sodium 143, Potassium 3.9, Chloride 114 H, Carbon Dioxide 22.0, Anion Gap 7, BUN 58 H, Creatinine 1.23 H, Estim Creat Clear Calc 37.25, Est GFR (MDRD) Af Amer 54 L, Est GFR (MDRD) Non-Af 45 L, BUN/Creatinine Ratio 47.2 H, Glucose 103, Calcium 8.2 L, Magnesium 2.2 09/25/20 06:00: WBC 9.4, RBC 2.12 L, Hgb 6.4 L, Hct 20.4 L, MCV 96.2 D, MCH 30.2, MCHC 31.4 L D, RDW Std Deviation 51.1 H, RDW Coeff of Fariba 15.7 H, Plt Coun t 164, MPV 12.9 H, Immature Gran % (Auto) 0.500, Neut % (Auto) 80.0 H, Lymph % (Auto) 14.9 L, [place] % (Auto) 4.2, Eos % (Auto) 0.1, Baso % (Auto) 0.3, Absolute Neuts (auto) 7.5, Absolute Lymphs (auto) 1.39, Nucleated RBC % 0.2 Current Medications Acetaminophen (Acetaminophen 325 Mg Tablet) 650 mg PO Q6H PRN PRN PRN Reason: Pain Score 1-10/Temp > 100.7 F Cyanocobalamin (Cyanocobalamin 500 Mcg Tablet) 2,500 mcg PO QODAY [facility] [place] Heparin Sodium (Beef Lung) (Heparin Pf Lock 10 Units/Ml 50 Units/5 Ml Syringe) 50 units IV UD PRN PRN Reason: R Port Heparin Flush Hydralazine HCl (Hydralazine 20 Mg/Ml Vial) 5 mg IV Q4H PRN PRN PRN Reason: SBP > 180 or DBP > 120 Pantoprazole Sodium 40 mg/ (Sodium Chloride) 110 mls @ 330 mls/hr IV Q12 [facility] Last Infusion: 09/25/20 08:55 Dose: Infused Documented by: Melatonin (Melatonin 10 Mg Tablet) 5 mg PO QHS [facility] Last Admin: 09/24/20 22:12 Dose: 5 mg Documented by: Ondansetron HCl (Ondansetron 4 Mg/2 Ml Vial) 4 mg IV Q8H PRN PRN PRN Reason: NAUSEA/VOMITING Pramipexole Dihydrochloride (Pramipexole Di-Hcl 0.125 Mg Tablet) 0.125 mg PO QHS [facility] [place] Last Admin: 09/24/20 22:12 Dose: 0.125 mg Documented by: Sildenafil Citrate (Sildenafil Citrate 20 Mg Tablet) 20 mg PO TID [facility] Last Admin: 09/25/20 05:57 Dose: 20 mg Documented by: Sodium Chloride (0.9% Saline Lock 10 Ml Syringe) 10 - 40 ml IV UD PRN PRN Reason: R Port Saline Flush Last Admin: 09/25/20 09:06 Dose: 10 ml Documented by: Sodium Chloride (0.9 % Nacl (Sterile) Posiflush 10 Ml) 10 - 40 ml IV UD PRN PRN Reason: Port access or dressing change Sucralfate (Sucralfate 1 Gm Tablet) 1 gm PO 1HR_ACHS [facility] Discharge Diet: Low fat/ Low Cholesterol, 2000 mg Sodium Diet Discharge Activity: Return to Normal Activity Home Medications: Medications to take at Discharge Cholecalciferol (Vitamin D3) [Vitamin D3] 2,000 unit PO DAILY 11/18/17 Ropinirole HCl [Requip] 0.25 mg PO QHS 11/18/17 Sildenafil Citrate [Revatio] 20 mg PO TID 11/18/17 magnesium 250 mg tablet 250 mg PO DAILY 10/09/18 potassium chloride 10 mEq capsule,extended release 40 meq PO DAILY PRN PRN 10/09/18 ferrous sulfate 325 mg (65 mg iron) tablet 325 mg PO DAILY 04/14/19 metoprolol succinate 100 mg tablet,extended release 24 hr 50 mg PO DAILY tab 11/03/19 ascorbic acid (vitamin C) 500 mg capsule 500 mg PO DAILY 05/10/20 cyanocobalamin (vitamin B-12) 2,500 mcg sublingual lozenge 2,500 mcg SUBLINGUAL .QOD ea 05/10/20 furosemide 40 mg tablet 40 mg PO DAILY PRN PRN 05/10/20 melatonin 5 mg capsule 5 mg PO QHS 05/10/20 pantoprazole 40 mg tablet,delayed release 40 mg PO DAILY tab 05/10/20 amlodipine 10 mg tablet 10 mg PO DAILY #90 tab 08/30/20 Amoxicillin 500 mg PO .COMPLEX 09/24/20 Sucralfate [Carafate] 1 gm PO 1HR_ACHS #100 tab 09/25/20 Following Prescriptions Were Given to Patient: Sucralfate [Carafate] 1 gm PO 1HR_ACHS #100 tab Transmission Status: Received by [id number] Primary Care Physician: Jyothi Weber BANQUET LINE COOK, [facility] [employer] [facility]-C [Primary Care Provider] - Please follow up with your Primary Care Physician in: within 1-2 weeks Please Follow Up With: Champ Snyder MD When: within 1 week Disposition: Home Minutes spent on discharge:: 40 Patient Condition:: Stable Medical Necessity - Tobacco Use Smoking Status: Never smoker Meaningful Use Info Meaningful Use Diagnoses (Choose all that apply): None applicable Inpatient E&M: 08557 Disch Hosp
[2020-09-25] MEDS: Sucralfate 1 GM Tablet PO ×3 (14:15→21:56)
[2020-09-25 16:53] LABS: Hematocrit 24.4 % (37-47); Hemoglobin 7.8 g/dL (12.0-15.0)
--- NOTE | 2020-09-25 17:38 | PN_ITS ---
Patient Problems: Active and Suspected Problems (Last Reviewed 09/25/20 @ 10:[address] Champ Snyder MD) Acute blood loss anemia (Acute) Reason for Visit: Follow-up on syncope/GI bleed/severe anemia Subjective: Patient was seen and examined. No jean-claude stools or hematochezia seen. Denies dizziness, palpitations or abdominal pain. Family are reluctant for patient to be discharged home today Vitals/I&O's: Vital Signs Temp Pulse Resp BP Pulse Ox 98.5 F 61 18 124/49 H 95 09/25/20 15:53 09/25/20 15:53 09/25/20 15:53 09/25/20 15:53 09/25/20 15:53 Oxygen Delivery Method Room Air Weight: 131.1 kg Body Mass Index (BMI) 45.2 Orthostatic Vital Signs Start: 09/25/20 01:56 Freq: q24h Status: Active Protocol: Activity Type Activity Date Activity User E-Sign Co-Sign Detail Recorded Client Recorded Date Recorded By Document 09/25/20 00:45 SHERYL [id number] 09/25/20 01:58 SHERYL 09/25/20 00:45 Orthostatic Vitals Standing -Blood Pressure (90/60-120/80) 133/50 H -Extremity Use Right Arm -Pulse Rate (60-100) 95 Sitting -Blood Pressure (90/60-120/80) 110/56 L -Extremity Use Right Arm -Pulse Rate (60-100) 91 Lying -Blood Pressure (90/60-120/80) 124/54 H -Extremity Use Right Arm -Pulse Rate (60-100) 86 Intake and Output for Last 24 Hours 09/23/20 09/24/20 09/25/20 23:59 23:59 23:59 Intake Total 35 / 35 2140 / 2140 Output Total 800 / 800 Balance 35 / 35 1340 / 1340 General: Alert, Oriented x3, Cooperative, No apparent distress HEENT: Atraumatic, PERRLA, EOMI, Normocephalic Oral: Moist Mucosa Neck: Supple Lungs: Clear to auscultation, Normal air movement Cardiovascular: Regular rate, Regular Rhythm, Normal S1, Normal S2, Murmur Abdomen: Bowel Sounds Present, Soft, Non Tender, Non-Distended Extremities: No edema Skin: No rashes Musculoskeletal: No Tenderness to Palpation of Joints or Extremities Lymphatic: No Cervical, Supraclavicular, or Inguinal Adenopathy Neurological: Cranial nerves II-XII grossly intact, Neuro grossly intact Psych/Mental Status: Normal Affect, Appropriate Laboratory Results 09/24/20 19:55: WBC 10.6, RBC 1.55 L, Hgb 4.7 L*, Hct 15.9 L, MCV 102.6 H, MCH 30.3, MCHC 29.6 L, RDW Std Deviation 53.2 H, RDW Coeff of Fariba 15.3 H, Plt Count 127 L, MPV 12.8 H, Immature Gran % (Auto) 0.800, Neut % (Auto) 88.4 H, Lymph % (Auto) 7.7 L, [place] % (Auto) 2.8, Eos % (Auto) 0.0, Baso % (Auto) 0.3, Absolute Neuts (auto) 9.4 H, Absolute Lymphs (auto) 0.82 L, Nucleated RBC % 0, Differential Comment SCANNED, Diff Path Review May foll, Polychromasia 1+ 09/24/20 19:55: Sodium 139, Potassium 4.3, Chloride 112 H, Carbon Dioxide 19.0 L , Anion Gap 8, BUN 63 H, Creatinine 1.31 H, Estim Creat Clear Calc 34.97, Est GFR (MDRD) Af Amer 51 L, Est GFR (MDRD) Non-Af 42 L, BUN/Creatinine Ratio 48.1 H , Glucose 158 H, Calcium 8.3 L 09/24/20 20:15: Blood Type A POSITIVE, Antibody Screen NEGATIVE 09/24/20 20:15: Crossmatch See Detail 09/24/20 20:15: PT 15.4 H, INR 1.3, APTT 29.0 09/25/20 06:00: Sodium 143, Potassium 3.9, Chloride 114 H, Carbon Dioxide 22.0, Anion Gap 7, BUN 58 H, Creatinine 1.23 H, Estim Creat Clear Calc 37.25, Est GFR (MDRD) Af Amer 54 L, Est GFR (MDRD) Non-Af 45 L, BUN/Creatinine Ratio 47.2 H, Glucose 103, Calcium 8.2 L, Magnesium 2.2 09/25/20 06:00: WBC 9.4, RBC 2.12 L, Hgb 6.4 L, Hct 20.4 L, MCV 96.2 D, MCH 30.2, MCHC 31.4 L D, RDW Std Deviation 51.1 H, RDW Coeff of Fariba 15.7 H, Plt Count 164, MPV 12.9 H, Immature Gran % (Auto) 0.500, Neut % (Auto) 80.0 H, Lymph % (Auto) 14.9 L, [place] % (Auto) 4.2, Eos % (Auto) 0.1, Baso % (Auto) 0.3, Absolute Neuts (auto) 7.5, Absolute Lymphs (auto) 1.39, Nucleated RBC % 0.2 09/25/20 16:25: Hgb 7.8 L, Hct 24.4 L Current Medications Acetaminophen (Acetaminophen 325 Mg Tablet) 650 mg PO Q6H PRN PRN PRN Reason: Pain Score 1-10/Temp > 100.7 F Cyanocobalamin (Cyanocobalamin 500 Mcg Tablet) 2,500 mcg PO QODAY [facility] Heparin Sodium (Beef Lung) (Heparin Pf Lock 10 Units/Ml 50 Units/5 Ml Syringe) 50 units IV UD PRN PRN Reason: R Port Heparin Flush Hydralazine HCl (Hydralazine 20 Mg/Ml Vial) 5 mg IV Q4H PRN PRN PRN Reason: SBP > 180 or DBP > 120 Pantoprazole Sodium 40 mg/ (Sodium Chloride) 110 mls @ 330 mls/hr IV Q12 [facility] Last Infusion: 09/25/20 08:55 Dose: Infused Documented by: Melatonin (Melatonin 10 Mg Tablet) 5 mg PO QHS [facility] Last Admin: 09/24/20 22:12 Dose: 5 mg Documented by: Ondansetron HCl (Ondansetron 4 Mg/2 Ml Vial) 4 mg IV Q8H PRN PRN PRN Reason: NAUSEA/VOMITING Pramipexole Dihydrochloride (Pramipexole Di-Hcl 0.125 Mg Tablet) 0.125 mg PO QHS [facility] Last Admin: 09/24/20 22:12 Dose: 0.125 mg Documented by: Sildenafil Citrate (Sildenafil Citrate 20 Mg Tablet) 20 mg PO TID [facility] Last Admin: 09/25/20 14:15 Dose: 20 mg Documented by: Sodium Chloride (0.9% Saline Lock 10 Ml Syringe) 10 - 40 ml IV UD PRN PRN Reason: R Port Saline Flush Last Admin: 09/25/20 17:26 Dose: 10 ml Documented by: Sodium Chloride (0.9 % Nacl (Sterile) Posiflush 10 Ml) 10 - 40 ml IV UD PRN PRN Reason: Port access or dressing change Sucralfate (Sucralfate 1 Gm Tablet) 1 gm PO 1HR_ACHS [facility] Last Admin: 09/25/20 17:26 Dose: 1 gm Documented by: STROKE Vital Signs/Narrative: Vital Signs Temp Pulse Resp BP Pulse Ox 09/25/20 15:53 98.5 F 61 18 124/49 H 95 09/25/20 15:07 98.6 F 65 18 118/53 L 96 09/25/20 15:02 70 09/25/20 14:07 98.6 F 76 18 133/50 H 98 Medical Necessity - Tobacco Use Smoking Status: Never smoker Assessment/Plan All Active Problems (Last Reviewed 09/25/20 @ 10:[address] Champ Snyder MD) Acute blood loss anemia (Acute) H/O aortic valve replacement (Resolved 09/15/18) Acute kidney injury (Resolved) Colon polyp (Resolved) Encounter for insertion of venous access port (Resolved) Hyperkalemia (Resolved) Urinary tract infection (Resolved) 1. Syncope secondary to severe anemia from Acute GI bleed; patient's vitals have been stable Likely hypovolemia from #2 2. Severe anemia secondary to Acute GI bleed Admitted with Hb 4.7, s/p 4 units pRBCs Repeat HB 7.8. Will continue to monitor; repeat labs in am Will transfuse for Hb less than 7 3. Acute GI bleed, likely upper, unclear specific etiology for now Off aspirin, continue on PPI IV BID, sucralfate po General surgery consulted 4. Metabolic acidosis, non-gap secondary to acute GI loss, resolved HCO3 back to baseline 5. Hypertension, controlled, continue with home meds 6. Chronic diastolic heart failure/Severe pulmonary hypertension/CAD/chronic atrial fibrillation Patient's home BP meds have been put on hold; Will continue to monitor 7. CKD stage III, stable, repeat blood work in am 8. Chronic lymphedema, stable 9. DVT PPx- SCDs Inpatient E&M: [id number] [facility] L[facility]
[2020-09-25 19:42] LABS: Hematocrit 26.3 % (37-47); Hemoglobin 8.4 g/dL (12.0-15.0)
[2020-09-25] MEDS: MELATONIN 10 MG TABLET 5 MG PO (21:56)
[2020-09-25] MEDS: Pramipexole Di-HCl 0.125 MG Tablet PO (21:58)
[2020-09-26] VITALS (18 sets, daily range): BP systolic 116–150; BP diastolic 38–67; PULSE 50–94; RESP 16–18; TEMP 36.6–37.3; O2SAT 92–100; BMI 45.2
[2020-09-26] MEDS: Sucralfate 1 GM Tablet PO ×4 (06:15→21:48)
[2020-09-26] MEDS: SILDENAFIL CITRATE 20 MG TABLET PO ×3 (06:15→21:48)
[2020-09-26 06:20] LABS: Absolute Lymphocyte Count 1.39 X10^3/uL (0.83-4.51); Absolute Neutrophil Count 4.3 X10^3/uL (2.0-7.7); Basophil# 0.04 X10^3/uL; Basophil% 0.6 % (0-1); Eosinophil# 0.13 X10^3/uL; Eosinophils% 2.1 % (0-5); Hematocrit 23.4 % (37-47); Hemoglobin 7.4 g/dL (12.0-15.0); Lymphocyte # 1.39 X10^3/ul (4.0); Lymphocyte % 22.4 % (19-41); Mean Corp Hgb Conc 31.6 g/dL (32-36); Mean Corpuscular Hgb 30.2 pg (27.0-32.0); Mean Corpuscular Volume 95.5 fL (81-99); Mean Platelet Vol. 12.3 fl (6.2-12.0); Monocyte# 0.34 X10^3/uL; Monocyte% 5.5 % (0-10); NRBC Flagged by Analyzer 0.3 % (0-5); Neutrophil # 4.27 X10^3/uL (2.7-7.7); Neutrophil % 68.9 % (47-70); Platelet Count 153 K/mm3 (150-450); RBC Distribution Width CV 16.6 % (11.6-14.6); RBC Distribution Width SD 54.2 fl (35.1-43.9); Red Blood Count 2.45 M/mm3 (4.2-5.4); White Blood Count 6.2 K/mm3 (4.4-11.0)
[2020-09-26 06:43] LABS: ALB/GLOB Ratio 1.1 RATIO (0.9-2.4); AST(SGOT) 18 U/L (15-37); Alanine Aminotransfer ALT/SGPT 16 U/L (13-56); Albumin, Serum 2.7 g/dL (3.2-5.0); Alkaline Phosphatase 62 U/L (45-117); Anion Gap 6 (5-15); BUN 37 mg/dL (7-18); Chloride 112 mmol/L (98-107); Creatinine, Serum 1.37 mg/dL (0.55-1.02); EST Glomerular Filtration Rate 40 mL/min (>60); Est Glom Filt Rate - Afr Amer 48 mL/min (>60); Estimated Creatinine Clearance 33.44 ml/min; Globulin 2.5 g/dL (2.2-4.2); Glucose 88 mg/dL (74-106); Potassium 3.7 mmol/L (3.5-5.1); Protein, Total 5.2 g/dL (6.4-8.2); Sodium Level 142 mmol/L (136-145)
[2020-09-26 07:55] LABS: Magnesium 2.2 mg/dL (1.6-2.6)
--- NOTE | 2020-09-26 08:04 | PN_ITS ---
Patient Problems: Active and Suspected Problems (Last Reviewed 09/25/20 @ 10:[address] Champ Snyder MD) Acute blood loss anemia (Acute) Subjective: Patient with no acute events overnight per self and per nursing report. Patient has had no more melanotic appearing stools per her report. She does feel less lightheaded and dizzy than her initial onset the Saturday prior to presentation. Discussed current status and hemoglobin trending with 09/26/2020 afternoon EGD performed which was unremarkable. Patient amenable to continued hemoglobin trending, diet advancement and possible discharge 09/27/2020 if clinically stable. Patient denies fevers, chills, nausea, emesis, abdominal pain, chest pain or dyspnea. Objective: Physical Examination: General: awake, alert, oriented x 3 and cooperative, seated upright in the PCU bedside, no acute distress. Skin: normal color, turgor, no icterus, cyanosis. HEENT: AT/NC, EOMI, PERRLA, MMM. Lungs: Diminished breath sounds, greater bases, moderate effort, no rales, ronchi or wheezing. Heart: Irregular, rate controlled; no gallop, rub audible, + SM. Abdomen: soft, morbidly obese, NTTP, ND, mildly hyperactive bowel sounds. Extremities: no cyanosis or clubbing, mild bilateral ankle nonpitting edema. Neurological: patient awake, alert, oriented as noted; cognitive function intact; pupils equally reactive to light and accomodation; cranial nerves II-XII grossly normal, moving all 4 extremities, no focal deficits, strength improving, mildly to moderately global decrease. Psychiatric: affect appears mildly fatigued otherwise normal, no acute evidence of depressive or anxiety feelings. Vitals/I&O's: Vital Signs Temp Pulse Resp BP Pulse Ox 98.0 F 63 18 117/38 L 96 09/26/20 03:50 09/26/20 06:54 09/26/20 03:50 09/26/20 03:58 09/26/20 03:50 Oxygen Delivery Method CPAP Weight: 289 lb 0.416 oz Body Mass Index (BMI) 45.2 Orthostatic Vital Signs Start: 09/25/20 01:56 Freq: q24h Status: Active Protocol: Activity Type Activity Date Activity User E-Sign Co-Sign Detail Recorded Client Recorded Date Recorded By Document 09/26/20 03:58 AF [id number] 09/26/20 04:01 AF 09/26/20 03:58 Orthostatic Vitals Standing -Blood Pressure (90/60-120/80) 129/39 H -Extremity Use Right Arm -Pulse Rate (60-100) 75 Sitting -Blood Pressure (90/60-120/80) 116/41 L -Extremity Use Right Arm -Pulse Rate (60-100) 80 Lying -Blood Pressure (90/60-120/80) 117/38 L -Extremity Use Right Arm -Pulse Rate (60-100) 64 Intake and Output for Last 24 Hours 09/24/20 09/25/20 09/26/20 23:59 23:59 23:59 Intake Total 35 / 35 2730 / 3130 700 / 700 Output Total 800 / 1100 300 / 300 Balance 35 / 35 1930 / 2030 400 / 400 Laboratory Results 09/24/20 20:15: Crossmatch See Detail 09/25/20 16:25: Hgb 7.8 L, Hct 24.4 L 09/25/20 19:25: Hgb 8.4 L, Hct 26.3 L 09/26/20 06:00: WBC 6.2, RBC 2.45 L, Hgb 7.4 L, Hct 23.4 L, MCV 95.5, MCH 30.2, MCHC 31.6 L, RDW Std Deviation 54.2 H, RDW Coeff of Fariba 16.6 H, Plt Count 153, MPV 12.3 H, Immature Gran % (Auto) 0.500, Neut % (Auto) 68.9, Lymph % (Auto) 22.4, Pennington % (Auto) 5.5, Eos % (Auto) 2.1, Baso % (Auto) 0.6, Absolute Neuts (auto) 4.3, Absolute Lymphs (auto) 1.39, Nucleated RBC % 0.3 09/26/20 06:00: Sodium 142, Potassium 3.7, Chloride 112 H, Carbon Dioxide 24.0, Anion Gap 6, BUN 37 H, Creatinine 1.37 H, Estim Creat Clear Calc 33.44, Est GFR (MDRD) Af Amer 48 L, Est GFR (MDRD) Non-Af 40 L, BUN/Creatinine Ratio 27.0 H, Glucose 88, Calcium 8.0 L, Total Bilirubin 0.60, AST 18, ALT 16, Alkaline Phosphatase 62, Total Protein 5.2 L, Albumin 2.7 L, Globulin 2.5, Albumin/Globulin Ratio 1.1 09/26/20 06:20: Magnesium 2.2 Current Medications Acetaminophen (Acetaminophen 325 Mg Tablet) 650 mg PO Q6H PRN PRN PRN Reason: Pain Score 1-10/Temp > 100.7 F Cyanocobalamin (Cyanocobalamin 500 Mcg Tablet) 2,500 mcg PO QODAY [facility] Heparin Sodium (Beef Lung) (Heparin Pf Lock 10 Units/Ml 50 Units/5 Ml Syringe) 50 units IV UD PRN PRN Reason: R Port Heparin Flush Last Admin: 09/25/20 22:40 Dose: 50 units Documented by: Hydralazine HCl (Hydralazine 20 Mg/Ml Vial) 5 mg IV Q4H PRN PRN PRN Reason: SBP > 180 or DBP > 120 Pantoprazole Sodium 40 mg/ (Sodium Chloride) 110 mls @ 330 mls/hr IV Q12 [facility] Last Infusion: 09/25/20 22:39 Dose: Infused Documented by: Melatonin (Melatonin 10 Mg Tablet) 5 mg PO QHS [facility] Last Admin: 09/25/20 21:56 Dose: 5 mg Documented by: Ondansetron HCl (Ondansetron 4 Mg/2 Ml Vial) 4 mg IV Q8H PRN PRN PRN Reason: NAUSEA/VOMITING Pramipexole Dihydrochloride (Pramipexole Di-Hcl 0.125 Mg Tablet) 0.125 mg PO QHS [facility] Last Admin: 09/25/20 21:58 Dose: 0.125 mg Documented by: Sildenafil Citrate (Sildenafil Citrate 20 Mg Tablet) 20 mg PO TID [facility] Last Admin: 09/26/20 06:15 Dose: 20 mg Documented by: Sodium Chloride (0.9% Saline Lock 10 Ml Syringe) 10 - 40 ml IV UD PRN PRN Reason: R Port Saline Flush Last Admin: 09/25/20 22:40 Dose: 10 ml Documented by: Sodium Chloride (0.9 % Nacl (Sterile) Posiflush 10 Ml) 10 - 40 ml IV UD PRN PRN Reason: Port access or dressing change Sucralfate (Sucralfate 1 Gm Tablet) 1 gm PO 1HR_ACHS [facility] Last Admin: 09/26/20 06:15 Dose: 1 gm Documented by: STROKE Vital Signs/Narrative: Vital Signs Pulse 09/26/20 06:54 63 Medical Necessity - Tobacco Use Smoking Status: Never smoker Assessment/Plan All Active Problems (Last Reviewed 09/25/20 @ 10:[address] Champ Snyder MD) Acute blood loss anemia (Acute) H/O aortic valve replacement (Resolved 09/15/18) Acute kidney injury (Resolved) Colon polyp (Resolved) Encounter for insertion of venous access port (Resolved) Hyperkalemia (Resolved) Urinary tract infection (Resolved) The patient is a 75 y/o F w/ PMHx: Fe deficiency anemia following w/ Dr. Khan w/ intermittent Venofer/PRBC administrations, CKD stage III following w/ Dr. Mccurdy, Diabetes mellitus type II, HTN, HLD, AARTI on CPAP, Morbid Obesity, Chronic BL LE Lymphedema and Chronic venous skin changes, Chronic atrial fibrillation on ASA only secondary to prior GI bleed history, History NSTEMI following w/ Dr. Raymundo, Hx Pulmonary HTN, Valvular Heart Disease s/p AVR, CAD, s/p IVCF placement who presents to the [facility] ED on 09/24/20 with history of syncopal event on day of ED presentation occurring while seated on the toilet, falling off with recent weakness, lethargy, diaphoresis with ongoing black stools for 3 to 4 days prior to ED presentation. 1. Acute GI Bleed w/ resultant Acute Blood Loss Anemia on Chronic Fe Deficiency Anemia: Admission Hgb 4.7, stool guiac positive, patient admitted to the PCU, maintained on telemetry monitoring, administered 4 unit PRBC with 2 additional PRBC units on hold, hemoglobin trending performed with 09/26/2020 hemoglobin 7.4 however repeat 8.4 as it had been on 09/25/2020 following transfusions 8.4, maintained on IV PPI and sucralfate, Dr. Snyder with general surgery consulted and patient underwent 09/26/2020 upper endoscopy which was unremarkable. Given repeat hemoglobin stable from prior patient diet slowly initiated with plan continued hemoglobin trending and if remains stable 10/05/2021 would plan discharge to home with temporary hold on aspirin therapy until repeat outpatient hemoglobin to assure continued stability with resumption at that time if appropriate with referral to GI for consideration capsule endoscopy. If capsule endoscopy is negative surgery recommended consideration for bone marrow biopsy with oncology. 2. CKD stage III: Admission BUN/Cr 58/1.23, prior baseline creatinine noted to be 1.2-1.3, BUN slightly elevated likely secondary to acute presentation, repeat 09/26/2020 BUN/creatinine 37/1.37, remains at baseline, continue to judiciously hydrate and repeat in AM. 3. CAD: Noted most recent cardiac catheterization 2005 w/ normal left main coronary artery, and left anterior descending artery with isolated plaque of 30- 40%, circumflex artery with isolated plaque disease, obtuse marginal with 30-40% disease in the right coronary artery with isolated plaque disease. Holding aspirin, will continue patient home metoprolol regimen with hold parameters, not on statin therapy nor MARIE inhibitor/ARB. 4. Chronic Atrial Fibrillation: EKG upon presentation with atrial fibrillation noted to be rate controlled, we will continue patient home metoprolol regimen, not anticoagulated secondary to #1 and prior history of similar. 5. Hypertension: BP low in the ED, regimen temporarily held, will add back beta-long therapy with hold parameters, PRN hydralazine. 6. Hyperlipidemia: Previously on statin therapy, not on current list. 7. Morbid Obesity: Weight loss and lifestyle changes encouraged. 8. History of Diabetes mellitus type II: No longer on regimen, most recently noted hemoglobin A1c 4.6% on 01/22/2018, encourage continued strict lifestyle and diet alterations. 9. Valvular Heart Disease: History of aortic stenosis, status post AVR, 02/03/2020 echocardiogram with normal LV size, normal LV systolic function, EF 60%, severely enlarged LA and RA, mild MVI, PASP 49 mmHg, moderate pulmonary hypertension, bioprosthetic AV present, mean aortic valve gradient 12 mmHg. 10. Pulmonary HTN: Continue home sildenafil regimen. 11. AARTI: Maintain on home CPAP. 12. DVT Prophylaxis: SCDs, deferring any chemoprophylaxis given acute presentation as noted #1. Inpatient E&M: [id number] [place] [id number]
[2020-09-26] MEDS: Cyanocobalamin 500 MCG Tablet 2500 MCG PO (08:53)
--- NOTE | 2020-09-26 10:44 | CASEMGMT ---
LELE BEGUM assessment: Face to Face with patient for initial transition planning/care coordination assessment. LELE BEGUM introduced self and role at [facility], pt voices understanding and consents to assessment at this time. Pt is sitting up in chair in no distress at this time. Pt is A/Ox4 at this time and answers all questions appropriately at this time. Pt's is at bedside during assessment. Care providers, pharmacy, and demographics verified at this time. Presentation: Syncopal episode on toilet after getting out of shower. Pt states black/tarry stools for days Admitting dx: Acute blood loss anemia, syncope PCP: Tia Specialists: Breanne, cardio; Leslie, pulm; Kaz, nephro; Iskar, heme Preferred Pharmacy: [facility] mail order Insurance: [facility] A/B, MMO Prescription Benefit: [employer] Living Will/HPOA: Pt has LW/HPOA and is aware that they are on file at [facility] at this time. Pt states her , Foster Singh, is HPOA. LNOK: Foster Singh, ; Rhianna Gresham, daughter Living Arrangements: Pt states lives with in 1 story home and states no concerns at home at this time. Pt states is independent with ADL's. Transportation: Pt states drives self or drives and states no transportation concerns at this time. DME/HHC: Pt states has the following DME: cane, walker, w/c, lymphadema pumps, grab bars, and cpap thru [facility]. Pt states no need for any further DME at this time. Pt states has had HHC in the past but has not been to SNF. Pt states no concerns with going home at time of discharge. Pt states is retired. Pt states does not smoke cigarettes or drink ETOH. Pt states no further concerns/needs at this time. CM to follow for any further discharge planning/needs. Advised pt to ask for CM if any further questions/concerns/needs arise, voices understanding. Pt Goal: Home Plan[place] LELE [place]GUM
[2020-09-26] MEDS: 0.9% Saline Lock 10 ML Syringe IV ×2 (11:22→21:52)
[2020-09-26] MEDS: Lactated Ringers 1,000 ML 100 ML IV (11:22)
--- NOTE | 2020-09-26 12:00 | EGD_PTH ---
PATIENT: KAMI ROLLE LOC: [facility] U#:[id number] AGE/SX: 75/F ROOM: [facility] RE09/24/[address]: Dr. Nohemi Walker MD : 1945 BED: 1 DIS: 09/27/2020 SPEC #: [id number] RECD: 09/26/20 12:49 STATUS: LUCY REMichele #: [id number] CHELSEA: 09/26/20 12:[address]: Champ Snyder DEPT: SURGICAL PATHOLOGY RECD BY: Elena Valadez ENTERED: 09/26/20 14:40 SP TYPE: EGD BIOPSY OT DR: MD Dr. Marlon Gunter MD Mary Ciesa, ASSURANCE SOURCING MANAGER-C Tissues: Stomach, NOS Procedures: Surgery Specimen Level IV HEADER OPERATION: EGD ([facility]) PRE-OP DIAGNOSIS: Blood loss, anemia TISSUE SUBMITTED: Antrum biopsy for H. pylori and path MICROSCOPIC DIAGNOSIS Gastric antrum, biopsy: Chronic gastritis. Focal changes of suggestive of fundic gland polyp. See comment. AM:rachael 09/27/2020 COMMENT The results of immunohistochemistry for Helicobacter pylori will be reported separately ([id number]). MICROSCOPIC DESCRIPTION Slides are reviewed. GROSS DESCRIPTION Received in fixative is one container labeled with the patient's name and designated antrum biopsy. The specimen consists of two irregular fragments of light melchor soft tissue that in aggregate measure 0.5 x 0.3 x 0.1 cm. The specimen is totally submitted in one cassette. / SJ:rachael 09/26/20 TC:3 CPT: 54983
--- NOTE | 2020-09-26 12:00 | IMM_PTH ---
PATIENT: KAMI ROLLE LOC: [facility] U#:[id number] AGE/SX: 75/F ROOM: [facility] RE09/24/[address]: Dr. Nohemi Walker MD : 1945 BED: 1 DIS: 09/27/2020 SPEC #: [id number] RECD: 09/26/20 13:09 STATUS: LUCY REQ #: [id number] CHELSEA: 09/26/20 12:[address]: Champ Snyder DEPT: IMMUNOHISTOCHEMISTRY RECD BY: Elena Valadez ENTERED: 09/26/20 13:10 SP TYPE: IMMUNO OTHR DR: MD Dr. Marlon Gunter MD Mary Ciesa, DAY PORTER-C Tissues: Stomach, NOS Procedures: H Pylori (initial) PHYSICIAN & INSTITUTION [place] [address] SPECIMEN INFORMATION: Tissue Source: Antrum biopsy Clinical Info: Blood loss, anemia Specimen Number: [id number] CPT code: 96165 METHODOLOGY: Deparaffinized sections of prefer/formalin-fixed tissue or PAP/DQ stained slides are incubated with monoclonal/polyclonal antibodies/oligonucleotide probes. Localization is made via biotin free immunoperoxidase method. Appropriate controls are performed and reacted as expected. Results on target cell population are indicated in the following table: RESULTS: ANTIBODY / CLONE RESULT H Pylori (polyclonal) negative These tests were developed and their performance characteristics determined by [facility]. They may not have been cleared or approved by the U.S. Food and Drug Administration. The FDA has determined that such clearance or approval is not necessary. INTERPRETATION: Antrum, biopsy: Negative for Helicobacter pylori organisms. AM:rachael 09/28/2020
--- NOTE | 2020-09-26 12:25 | OP.CCLET_ITS ---
09/26/2020 Jyothi Weber, DANIELE [address] [place] [address] Re : Upper GI endoscopy procedure for Gabbi Francisco Dear Ms. Weber This procedure was performed on Saturday, September 26, 2020. My impressions and recommendations are as follows: Impressions : - Normal esophagus. - Normal stomach. Biopsied. - Normal examined duodenum. No specimens collected. Recommendations : - Return patient to [facility] for [facility] care. - Advance diet as tolerated. - Continue present medications. - Await pathology results. - Return to physician assistant golf professional in 1 week. My findings are described in the full procedure note, which is enclosed. If I can be of further assistance, please feel free to contact me at Doctor phone number(s): , Fax: [phone], Work: . Sincerely, MD Champ Galarza MD 09/26/2020 12:24:27 PM This report has been signed electronically.
--- NOTE | 2020-09-26 12:25 | OP.EGD_ITS ---
Patient Name: Gabbi Singh Procedure Date: 09/26/2020 11:14 AM Date of : 1945 Age: 75 Procedure: Upper GI endoscopy Indications: Iron deficiency anemia due to suspected upper gastrointestinal bleeding Providers: Champ Snyder MD Medicines: See the Anesthesia note for documentation of the administered medications Patient Profile: This is a 75 year old female. Refer to note in patient chart for documentation of history and physical. Complications: No immediate complications. Procedure: Pre-Anesthesia Assessment: - Prior to the procedure, a History and Physical was performed, and patient medications and allergies were reviewed. The patient's tolerance of previous anesthesia was also reviewed. The risks and benefits of the procedure and the sedation options and risks were discussed with the patient. All questions were answered, and informed consent was obtained. Prior Anticoagulants: The patient has taken no previous anticoagulant or antiplatelet agents. ASA Grade Assessment: III - A patient with severe systemic disease. After reviewing the risks and benefits, the patient was deemed in satisfactory condition to undergo the procedure. After obtaining informed consent, the endoscope was passed under direct vision. Throughout the procedure, the patient's blood pressure, pulse, and oxygen saturations were monitored continuously. The gastroscope was introduced through the mouth, and advanced to the second part of duodenum. The upper GI endoscopy was accomplished without difficulty. The patient tolerated the procedure well. Scope In: 12:14:47 PM Scope Out: 12:17:46 PM Total Procedure Duration Time 0 hours 2 minutes 59 seconds Findings: The examined esophagus was normal. Z-line was located at 44 cm. There was no signs of hiatal hernia. No masses. The entire examined stomach was normal. Biopsies were taken with a cold forceps for Helicobacter pylori testing. The examined duodenum was normal. No biopsies or other specimens were collected for this exam. There were no signs of any blood loss coming from a upper source. Everything looked entirely normal. Impression: - Normal esophagus. - Normal stomach. Biopsied. - Normal examined duodenum. No specimens collected. Recommendation: - Return patient to [facility] for ongoing care. - Advance diet as tolerated. - Continue present medications. - Await pathology results. - Return to physician assistant account manager in 1 week. Procedure Code(s): --- Professional --- 36337, Esophagogastroduodenoscopy, flexible, transoral; with biopsy, single or multiple Diagnosis Code(s): --- Professional --- D50.9, Iron deficiency anemia, unspecified CPT copyright 2017 [employer]. All rights reserved. The codes documented in this report are preliminary and upon director enterprise systems review may be revised to meet current compliance requirements. MD Champ Galarza MD 09/26/2020 12:24:27 PM This report has been signed electronically. Number of Addenda: 0 Note Initiated On: 09/26/2020 11:14 AM
[2020-09-26 13:39] LABS: Pathologist Review Reviewed
[2020-09-26 14:10] LABS: Hematocrit 26.4 % (37-47); Hemoglobin 8.4 g/dL (12.0-15.0)
[2020-09-26 16:05] LABS: Hematocrit 25.5 % (37-47); Hemoglobin 8.1 g/dL (12.0-15.0)
[2020-09-26] MEDS: Pramipexole Di-HCl 0.125 MG Tablet PO (21:48)
[2020-09-26] MEDS: MELATONIN 10 MG TABLET 5 MG PO (21:48)
[2020-09-27] VITALS (9 sets, daily range): BP systolic 123–164; BP diastolic 41–70; PULSE 55–78; RESP 16–18; TEMP 36.4–36.8; O2SAT 95–98
[2020-09-27 05:16] LABS: Absolute Lymphocyte Count 1.08 X10^3/uL (0.83-4.51); Absolute Neutrophil Count 3.4 X10^3/uL (2.0-7.7); Basophil# 0.04 X10^3/uL; Basophil% 0.8 % (0-1); Eosinophil# 0.16 X10^3/uL; Eosinophils% 3.2 % (0-5); Hematocrit 27.8 % (37-47); Hemoglobin 7.9 g/dL (12.0-15.0); Lymphocyte # 1.08 X10^3/ul (4.0); Lymphocyte % 21.8 % (19-41); Mean Corp Hgb Conc 28.4 g/dL (32-36); Mean Corpuscular Hgb 30.7 pg (27.0-32.0); Mean Corpuscular Volume 108.2 fL (81-99); Mean Platelet Vol. 12.5 fl (6.2-12.0); Monocyte% 6.1 % (0-10); NRBC Flagged by Analyzer 0.4 % (0-5); Neutrophil # 3.36 X10^3/uL (2.7-7.7); Neutrophil % 67.9 % (47-70); Platelet Count 167 K/mm3 (150-450); RBC Distribution Width SD 62.4 fl (35.1-43.9); Red Blood Count 2.57 M/mm3 (4.2-5.4)
[2020-09-27 05:38] LABS: ALB/GLOB Ratio 0.7 RATIO (0.9-2.4); AST(SGOT) 17 U/L (15-37); Alanine Aminotransfer ALT/SGPT 15 U/L (13-56); Albumin, Serum 2.3 g/dL (3.2-5.0); Alkaline Phosphatase 64 U/L (45-117); Anion Gap 5 (5-15); BUN 22 mg/dL (7-18); BUN/Creat Ratio 18.3 RATIO (10-20); Calcium,Total 8.2 mg/dL (8.5-10.1); Chloride 115 mmol/L (98-107); EST Glomerular Filtration Rate 46 mL/min (>60); Est Glom Filt Rate - Afr Amer 56 mL/min (>60); Estimated Creatinine Clearance 38.18 ml/min; Globulin 3.1 g/dL (2.2-4.2); Glucose 88 mg/dL (74-106); Potassium 3.9 mmol/L (3.5-5.1); Protein, Total 5.4 g/dL (6.4-8.2); Sodium Level 140 mmol/L (136-145)
[2020-09-27] MEDS: SILDENAFIL CITRATE 20 MG TABLET PO (06:31)
[2020-09-27] MEDS: Sucralfate 1 GM Tablet PO (06:31)
--- NOTE | 2020-09-27 08:06 | DCINST_ITS ---
- Discharge Diagnoses Current Active Problems: Current Active and Chronic Problems (Last Reviewed 09/25/20 @ 10:[address] Champ Snyder MD) 1. Acute GI Bleed w/ resultant Acute Blood Loss Anemia on Chronic Fe Deficiency Anemia 2. CKD stage III 3. CAD 4. Chronic Atrial Fibrillation 5. Hypertension 6. Hyperlipidemia 7. Morbid Obesity 8. History of Diabetes mellitus type II 9. Valvular Heart Disease status post AVR 10. Pulmonary HTN 11. AARTI You will use the following diet at home:: Calorie/Carbohydrate Controlled (specify 1200, 1400, etc) - ADA 1800/Cardiac diet recommended Your food should be the consistency of: Regular Your liquids should be the consistency of: Regular/Thin Discharge Activity: - - Advise mild to moderate activity until clinically improved and follow-up obtained with GI, PCP and Oncology. May resume sexual activity in: No Restrictions Weight Bearing Status: Weight bearing as tolerated Call your doctor if you observe: Fever of 101 or Higher, Inability to urinate, Inability to have a bowel movement, Shortness of breath, Dizziness, Fainting spells, Chest pain, Uncontrolled pain Instructions: When You Have Gastrointestinal (GI) Bleeding, Upper GI Endoscopy, Anemia Additional Instructions: Please continue to temporarily hold your aspirin therapy until repeat CBC with your primary care at follow-up. They may opt to continue to hold or restart and have repeat CBC again. If you have recurrent black stools immediately contact your physician or return to the ED for re-evaluation. Allergies/Adverse Reactions: Allergies pravastatin Adverse Reaction (Severe, Verified 09/24/20 21:31) severe muscle and joint pain Medications to take at Discharge Cholecalciferol (Vitamin D3) [Vitamin D3] 2,000 unit PO DAILY 11/18/17 Ropinirole HCl [Requip] 0.25 mg PO QHS 11/18/17 Sildenafil Citrate [Revatio] 20 mg PO TID 11/18/17 magnesium 250 mg tablet 250 mg PO DAILY 10/09/18 potassium chloride 10 mEq capsule,extended release 40 meq PO DAILY PRN PRN 10/09/18 ferrous sulfate 325 mg (65 mg iron) tablet 325 mg PO DAILY 04/14/19 metoprolol succinate 100 mg tablet,extended release 24 hr 50 mg PO DAILY tab 11/03/19 ascorbic acid (vitamin C) 500 mg capsule 500 mg PO DAILY 05/10/20 cyanocobalamin (vitamin B-12) 2,500 mcg sublingual lozenge 2,500 mcg SUBLINGUAL .QOD ea 05/10/20 furosemide 40 mg tablet 40 mg PO DAILY PRN PRN 05/10/20 melatonin 5 mg capsule 5 mg PO QHS 05/10/20 amlodipine 10 mg tablet 10 mg PO DAILY #90 tab 08/30/20 Amoxicillin 500 mg PO .COMPLEX 09/24/20 Sucralfate [Carafate] 1 gm PO 1HR_ACHS #100 tab 09/25/20 Pantoprazole Sodium 40 mg PO BID #60 tab 09/27/20 The following prescriptions were given: Sucralfate [Carafate] 1 gm PO 1HR_ACHS #100 tab Transmission Status: Received by [facility] Pantoprazole Sodium 40 mg PO BID #60 tab Transmission Status: Pending to [facility] Primary Care Physician: Jyothi Weber ASSOCIATE PROFESSOR OF VIOLIN, ASSOCIATE PROFESSOR OF VIOLIN-C [Primary Care Provider] - Please follow up with your Primary Care Physician in: Follow-up within 3-5 days, have repeat CBC with your PCP. Test Results: Test results from this visit will be discussed in further detail at your follow- up appointment, if applicable. Please Follow Up With: Nelson Pacheco MD Gastroenterology When: Please f/u with your GI physician to discuss possible capsule endoscopy. Please Follow Up With: Halley Khan MD When: Please f/u with Hem/Onc to review admission, possible additional anemia w/u Please Follow Up With: Champ Snyder MD When: May see ASSOCIATE PROFESSOR OF VIOLIN/PA to f/u on pathology from scope in 1 week. Please Follow Up With: Natalia Mccurdy DO When: Keep upcoming 10/04/20 appointment. Proposed Discharge Date: 09/27/20
--- NOTE | 2020-09-27 08:13 | DS.PCM_ITS ---
Discharge Date and Diagnosis - Problem List Patient Problems: Active and Suspected Problems (Last Reviewed 09/25/20 @ 10:[address] Champ Snyder MD) Acute blood loss anemia (Acute) Date of Admission: 09/24/20 Date of Discharge: 09/27/20 - Primary Discharge Diagnosis Acute Problems: Active Problems (Last Reviewed 09/25/20 @ 10:[address] Champ Snyder MD) 1. Acute GI Bleed w/ resultant Acute Blood Loss Anemia on Chronic Fe Deficiency Anemia 2. CKD stage III 3. CAD 4. Chronic Atrial Fibrillation 5. Hypertension 6. Hyperlipidemia 7. Morbid Obesity 8. History of Diabetes mellitus type II 9. Valvular Heart Disease status post AVR 10. Pulmonary HTN 11. AARTI - Secondary Discharge Diagnosis Chronic Problems: Chronic Problems (Last Reviewed 09/25/20 @ 10:[address] Champ Snyder MD) Iron deficiency anemia due to chronic blood loss (Chronic) Chronic GI bleeding (Chronic) Chronic diastolic (congestive) heart failure (Chronic) Essential (primary) hypertension (Chronic) Hyperlipidemia (Chronic) Atherosclerotic heart disease of [place] coro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 pectoris (Chronic) Chronic atrial fibrillation (Chronic) HLD (hyperlipidemia) (Chronic) Nonrheumatic aortic (valve) stenosis (Chronic) Other secondary pulmonary hypertension (Chronic) Hospital Course and Treatment Dr. Snyder General Surgery Operations: None Procedures: Blood transfusion, EGD, EKG Summary of Care Provided: The patient is a 75 y/o F w/ PMHx: Fe deficiency anemia following w/ Dr. Khan w/ intermittent Venofer/PRBC administrations, CKD stage III following w/ Dr. Mccurdy, Diabetes mellitus type II, HTN, HLD, AARTI on CPAP, Morbid Obesity, Chronic BL LE Lymphedema and Chronic venous skin changes, Chronic atrial fibrillation on ASA only secondary to prior GI bleed history, History NSTEMI following w/ Dr. Raymundo, Hx Pulmonary HTN, Valvular Heart Disease s/p AVR, CAD, s/p IVCF placement who presented to the [facility] ED on 09/24/20 with history of syncopal event on day of ED presentation occurring while seated on the toilet, falling off with recent weakness, lethargy, diaphoresis with ongoing black stools for 3 to 4 days prior to ED presentation. Admission Hgb 4.7, stool guiac positive, patient admitted to the PCU, maintained on telemetry monitoring, administered 4 unit PRBC with 2 additional PRBC units on hold, hemoglobin trending performed-->09/26/2020 hemoglobin 7.4 however repeat 8.4 as it had been on 09/25/2020 following transfusions 8.4 with 09/27/20 Hgb 7.9 with completely reso lved lightheadedness/dizziness, stable VS and no further dark stools since presentation. Patient initially maintained on IV PPI, transitioned to oral following EGD. Dr. Snyder with general surgery consulted and patient underwent 09/26/2020 upper endoscopy which was unremarkable with pending pathology at discharge with planned 1 week follow-up. Given repeat hemoglobin stable from prior patient diet slowly initiated and tolerated. Patient discharged to home 09/27/20 with plan to temporarily hold aspirin therapy until repeat outpatient hemoglobin to assure continued stability with resumption at that time if appropriate with referral to GI for consideration capsule endoscopy. Discussed also, if capsule endoscopy negative surgery recommended consideration for bone marrow biopsy with oncology. Patient discharged in improved condition with follow-up with PCP, GI, Hem/Onc, Surgery for review of EGD pathology as well as Nephrology which she had already previously arranged. DAY OF DISCHARGE PROGRESS NOTE: Subjective: Patient without acute event overnight per self and nursing report. Patient hemoglobin stable and vital signs stable with no further lightheadedness or dizziness nor any black stools per her report. Patient denies fever, chills, nausea, emesis, abdominal pain, chest pain or dyspnea. Patient agreeable to discharge to home with aggressive follow-up plan. Patient will be discharged with follow-up with primary care physician within 3-5 days in addition to GI follow-up, general surgery follow-up for review of endoscopy pathology, heme/unk as well as previously arranged nephrology follow-up. Objective: T 98.2, heart 62, BP 123/41, respiratory rate 16, 95% on CPAP which is used overnight. On evaluation patient transition to room air currently. Physical Examination: General: awake, alert, oriented x 3 and cooperative, seated upright in the PCU bed, no acute distress. Skin: normal color, turgor, no icterus, cyanosis. HEENT: AT/NC, EOMI, PERRLA, MMM. Lungs: Diminished breath sounds, greater bases, moderate effort, no rales, ronchi or wheezing. Heart: Irregular, rate controlled; no gallop, rub audible, + SM. Abdomen: soft, morbidly obese, NTTP, ND, normalized bowel sounds. Extremities: no cyanosis or clubbing, mild bilateral ankle nonpitting edema. Neurological: patient awake, alert, oriented as noted; cognitive function intact; pupils equally reactive to light and accomodation; cranial nerves II-XII grossly normal, moving all 4 extremities, no focal deficits, strength improving, mild global decrease. Psychiatric: affect appears improved, normal, no acute evidence of depressive or anxiety feelings. Assessment and Plan: Please see hospital summary above. Patient Problems: Active and Suspected Problems (Last Reviewed 09/25/20 @ 10:[address] Champ Snyder MD) Acute blood loss anemia (Acute) - Physical Exam Vitals/I&O's: Vital Signs Temp Pulse Resp BP Pulse Ox 98.2 F 56 L 16 138/55 H 95 09/27/20 03:45 09/27/20 07:00 09/27/20 03:45 09/27/20 06:25 09/27/20 03:45 Oxygen Delivery Method CPAP Weight: 289 lb 0.416 oz Body Mass Index (BMI) 45.2 Orthostatic Vital Signs Start: 09/25/20 01:56 Freq: Q24H Status: Active Protocol: Activity Type Activity Date Activity User E-Sign Co-Sign Detail Recorded Client Recorded Date Recorded By Document 09/27/20 06:25 [id number] 09/27/20 06:28 09/27/20 06:25 Orthostatic Vitals Standing -Blood Pressure (90/60-120/80) 164/70 H -Extremity Use Left Arm -Pulse Rate (60-100) 76 Sitting -Blood Pressure (90/60-120/80) 140/41 H -Extremity Use Left Arm -Pulse Rate (60-100) 78 Lying -Blood Pressure (90/60-120/80) 138/55 H -Extremity Use Left Arm -Pulse Rate (60-100) 63 Intake and Output for Last 24 Hours 09/25/20 09/26/20 09/27/20 23:59 23:59 23:59 Intake Total 2730 / 3130 1705 / 1705 0 / 0 Output Total 800 / 1100 300 / 300 Balance 193 / 2030 1405 / 1405 0 / 0 Microbiology Past 72 Hours 09/26/20 09:42 Stool Stool Occult Blood (LASHAUN) - Final Occult Blood Positive 09/26/20 09:35 Mucosa - Nose SARS-CoV-2 Antigen (Rapid) - Final Laboratory Results 09/24/20 19:55: Diff Path Review Reviewed 09/26/20 14:06: Hgb 8.4 L, Hct 26.4 L 09/26/20 16:00: Hgb 8.1 L, Hct 25.5 L 09/27/20 05:10: WBC 5.0, RBC 2.57 L, Hgb 7.9 L, Hct 27.8 L, MCV 108.2 H D, MCH 30.7, MCHC 28.4 L D, RDW Std Deviation 62.4 H, RDW Coeff of Fariba 17.0 H, Plt Count 167, MPV 12.5 H, Immature Gran % (Auto) 0.200, Neut % (Auto) 67.9, Lymph % (Auto) 21.8, [place] % (Auto) 6.1, Eos % (Auto) 3.2, Baso % (Auto) 0.8, Absolute Neuts (auto) 3.4, Absolute Lymphs (auto) 1.08, Nucleated RBC % 0.4 09/27/20 05:10: Sodium 140, Potassium 3.9, Chloride 115 H, Carbon Dioxide 20.0 L , Anion Gap 5, BUN 22 H, Creatinine 1.20 H, Estim Creat Clear Calc 38.18, Est GFR (MDRD) Af Amer 56 L, Est GFR (MDRD) Non-Af 46 L, BUN/Creatinine Ratio 18.3, Glucose 88, Calcium 8.2 L, Total Bilirubin 0.60, AST 17, ALT 15, Alkaline Phosphatase 64, Total Protein 5.4 L, Albumin 2.3 L, Globulin 3.1, Albumin/Globulin Ratio 0.7 L Current Medications Acetaminophen (Acetaminophen 325 Mg Tablet) 650 mg PO Q6H PRN PRN PRN Reason: Pain Score 1-10/Temp > 100.7 F Amlodipine Besylate (Amlodipine 10 Mg Tablet) 10 mg PO DAILY [facility] Cyanocobalamin (Cyanocobalamin 500 Mcg Tablet) 2,500 mcg PO QODAY [facility] Last Admin: 09/26/20 08:53 Dose: 2,500 mcg Documented by: Ferrous Sulfate ([facility] 325 Mg Tablet) [facility] Heparin Sodium (Beef Lung) (Heparin Pf Lock 10 Units/Ml 50 Units/5 Ml Syringe) 50 units IV UD PRN PRN Reason: R Port Heparin Flush Last Admin: 09/25/20 22:40 Dose: 50 units Documented by: Hydralazine HCl (Hydralazine 20 Mg/Ml Vial) 5 mg IV Q4H PRN PRN PRN Reason: SBP > 180 or DBP > 120 Melatonin (Melatonin 10 Mg Tablet) 5 mg PO QHS [facility] Last Admin: 09/26/20 21:48 Dose: 5 mg Documented by: Metoprolol Succinate (Metoprolol(Xl)Succ 100 Mg Tablet) 50 mg PO DAILY [facility] Ondansetron HCl (Ondansetron 4 Mg/2 Ml Vial) 4 mg IV Q8H PRN PRN PRN Reason: NAUSEA/VOMITING Pantoprazole Sodium (Pantoprazole Sodium 40 Mg Tablet) 40 mg PO BID [facility] Pramipexole Dihydrochloride (Pramipexole Di-Hcl 0.125 Mg Tablet) 0.125 mg PO QHS [facility] Last Admin: 09/26/20 21:48 Dose: 0.125 mg Documented by: Sildenafil Citrate (Sildenafil Citrate 20 Mg Tablet) 20 mg PO TID [facility] Last Admin: 09/27/20 06:31 Dose: 20 mg Documented by: Sodium Chloride (0.9% Saline Lock 10 Ml Syringe) 10 - 40 ml IV UD PRN PRN Reason: R Port Saline Flush Last Admin: 09/26/20 21:52 Dose: 10 ml Documented by: Sodium Chloride (0.9 % Nacl (Sterile) Posiflush 10 Ml) 10 - 40 ml IV UD PRN PRN Reason: Port access or dressing change Sucralfate (Sucralfate 1 Gm Tablet) 1 gm PO 1HR_ACHS [facility] Last Admin: 09/27/20 06:31 Dose: 1 gm Documented by: Discharge Activity: - - Advise mild to moderate activity until clinically improved and follow-up obtained with GI, PCP and Oncology. May resume sexual activity in: No Restrictions Weight Bearing Status: Weight bearing as tolerated Call your doctor if you observe: Fever of 101 or Higher, Inability to urinate, Inability to have a bowel movement, Shortness of breath, Dizziness, Fainting spells, Chest pain, Uncontrolled pain Home Medications: Medications to take at Discharge Cholecalciferol (Vitamin D3) [Vitamin D3] 2,000 unit PO DAILY 11/18/17 Ropinirole HCl [Requip] 0.25 mg PO QHS 11/18/17 Sildenafil Citrate [Revatio] 20 mg PO TID 11/18/17 magnesium 250 mg tablet 250 mg PO DAILY 10/09/18 potassium chloride 10 mEq capsule,extended release 40 meq PO DAILY PRN PRN 10/09/18 ferrous sulfate 325 mg (65 mg iron) tablet 325 mg PO DAILY 04/14/19 metoprolol succinate 100 mg tablet,extended release 24 hr 50 mg PO DAILY tab 11/03/19 ascorbic acid (vitamin C) 500 mg capsule 500 mg PO DAILY 05/10/20 cyanocobalamin (vitamin B-12) 2,500 mcg sublingual lozenge 2,500 mcg SUBLINGUAL .QOD ea 05/10/20 furosemide 40 mg tablet 40 mg PO DAILY PRN PRN 05/10/20 melatonin 5 mg capsule 5 mg PO QHS 05/10/20 amlodipine 10 mg tablet 10 mg PO DAILY #90 tab 08/30/20 Amoxicillin 500 mg PO .COMPLEX 09/24/20 Sucralfate [Carafate] 1 gm PO 1HR_ACHS #100 tab 09/25/20 Pantoprazole Sodium 40 mg PO BID #60 tab 09/27/20 Following Prescriptions Were Given to Patient: Sucralfate [Carafate] 1 gm PO 1HR_ACHS #100 tab Transmission Status[id number] Pantoprazole Sodium 40 mg PO BID #60 tab Transmission Status: [facility] Primary Care Physician: Jyothi Weber [employer], [employer] [Primary Care Provider] - Please follow up with your Primary Care Physician in: Follow-up within 3-5 days, have repeat CBC with your PCP. Please Follow Up With: Nelson Pacheco MD Gastroenterology When: Please f/u with your GI physician to discuss possible capsule endoscopy. Please Follow Up With: Halley Khan MD When: Please f/u with Hem/Onc to review admission, possible additional anemia w/u Please Follow Up With: Champ Snyder MD When: May see [employer] to f/u on pathology from scope in 1 week. Please Follow Up With: Kaz,Natalia, DO When: Keep upcoming 10/04/20 appointment. Patient Instructions: When You Have Gastrointestinal (GI) Bleeding, Anemia, Upper GI Endoscopy Medical Necessity - Tobacco Use Smoking Status: Never smoker Meaningful Use Info Meaningful Use Diagnoses (Choose all that apply): None applicable Inpatient E&M: 31440 [facility]
--- NOTE | 2020-09-27 10:17 | PHA.DC.MC ---
Pharmacy Service has performed discharge medication reconciliation and counseling for this patient. The patient was counseled on the following discharge medications and changes in medications for homegoing were reviewed. 1. PROTONIX 2. CARAFATE The Reason for Use, instructions for use, and potential side effects were reviewed for all new medications. The patient's questions regarding all of their medications were answered. The patient was able to verbally demonstrate an understanding of their discharge medications. Home Medications Cholecalciferol (Vitamin D3) [Vitamin D3] 2,000 unit PO DAILY 11/18/17 Ropinirole HCl [Requip] 0.25 mg PO QHS 11/18/17 Sildenafil Citrate [Revatio] 20 mg PO TID 11/18/17 magnesium 250 mg tablet 250 mg PO DAILY 10/09/18 potassium chloride 10 mEq capsule,extended release 40 meq PO DAILY PRN PRN 10/09/18 ferrous sulfate 325 mg (65 mg iron) tablet 325 mg PO DAILY 04/14/19 metoprolol succinate 100 mg tablet,extended release 24 hr 50 mg PO DAILY tab 11/03/19 ascorbic acid (vitamin C) 500 mg capsule 500 mg PO DAILY 05/10/20 cyanocobalamin (vitamin B-12) 2,500 mcg sublingual lozenge 2,500 mcg SUBLINGUAL .QOD ea 05/10/20 furosemide 40 mg tablet 40 mg PO DAILY PRN PRN 05/10/20 melatonin 5 mg capsule 5 mg PO QHS 05/10/20 amlodipine 10 mg tablet 10 mg PO DAILY #90 tab 08/30/20 Amoxicillin 500 mg PO .COMPLEX 09/24/20 Sucralfate [Carafate] 1 gm PO 1HR_ACHS #100 tab 09/25/20 Pantoprazole Sodium 40 mg PO BID #60 tab 09/27/20 The patient's discharge medication list was reviewed for discrepancies and discrepancies were resolved.
[2020-09-27] MEDS: amLODIPine 10 MG Tablet PO (10:26)
[2020-09-27] MEDS: Ferrous Sulfate 325 MG Tablet PO (10:26)
[2020-09-27] MEDS: Metoprolol(XL)Succ 100 MG Tablet 50 MG PO (10:26)
[2020-09-27] MEDS: Pantoprazole Sodium 40 MG Tablet PO (10:29)
[2020-09-27] MEDS: 0.9% Saline Lock 10 ML Syringe IV (11:55)
--- NOTE | 2020-09-28 14:35 | CASEMGMT ---
LELE BEGUM Discharge F/U Phone Call LACE: 11 Strata: 3 Discharge date: 09/27/20 Call date: 09/28/20 Call time: [id number] Admission dx: Acute blood loss anemia, Syncope Pt states has been doing 'alright' since discharge. Pt states has been tired and had one episode of lightheadedness but states 'that's to be expected since my hemoglobin is still low.' Pt does states that on her carafate script that it states not to take with other meds and she is supposed to take it 1hr before bedtime. Per pt, she is also supposed to take melatonin, requip, and magnesium at bedtime and she asks what she should do about this. Cornelia, [facility] pharmacist, states for pt to take melatonin, magnesium, and requip 30minutes prior to carafate and the carafate should still be taken 1 hr before bedtime. Pt voices understanding at this time. Pt states no suggestions for [facility] at this time. Pt voices no further questions/concerns/needs at this time. S[place]en LELE BEGUM
== END 2020-09-27 12:09 | disposition home or self-care (01) | DRG 812 ==
LOC: ED 19:28 → PCU 20:55
PROVIDERS: Internal Medicine; Surgery; Admitting Provider Hospitalist; Emergency Provider Emergency Medicine; PCP Nurse Practitioner; Visit Provider Family Medicine
PROC: 0DJ08ZZ Inspection of Upper Intestinal Tract, Via Natural or Artificial Opening Endoscopic (ICD-10-PCS; CPT 43235; principal; 2020-09-26 11:55)
DX: D62 Acute posthemorrhagic anemia (principal); K92.1 Melena; I48.20 Chronic atrial fibrillation, unspecified; I13.0 Hypertensive heart and chronic kidney disease with heart failure and stage 1 through stage 4 chronic kidney disease, or unspecified chronic kidney disease; I50.32 Chronic diastolic (congestive) heart failure; Z68.42 Body mass index [BMI] 45.0-49.9, adult; E87.2 Acidosis; K29.50 Unspecified chronic gastritis without bleeding; E66.01 Morbid (severe) obesity due to excess calories; N18.30 Chronic kidney disease, stage 3 unspecified; D63.1 Anemia in chronic kidney disease; R55 Syncope and collapse; I25.10 Atherosclerotic heart disease of native coro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 pectoris; I27.29 Other secondary pulmonary hypertension; G47.33 Obstructive sleep apnea (adult) (pediatric); E11.22 Type 2 diabetes mellitus with diabetic chronic kidney disease; I35.0 Nonrheumatic aortic (valve) stenosis; I25.2 Old myocardial infarction; G25.81 Restless legs syndrome; E83.42 Hypomagnesemia; E78.2 Mixed hyperlipidemia; E87.8 Other disorders of electrolyte and fluid balance, not elsewhere classified; I89.0 Lymphedema, not elsewhere classified; Z95.3 Presence of xenogenic heart valve; Z95.828 Presence of other vascular implants and grafts; Z79.82 Long term (current) use of aspirin; Z87.01 Personal history of pneumonia (recurrent); Z79.899 Other long term (current) drug therapy
CPT/HCPCS: 36415; 36591; 71045; 80048; 80053; 82274; 83735; 85014; 85018; 85025; 85610; 85730; 86850; 86900; 86901; 86920; 86922; 87426; 88305; 88342; 93005; 99285; J7040; J7120; P9016; A4216; J1940; J3490

== ENCOUNTER 2020-09-29 10:19 | Emergency (ER) | payer MEDICARE, OTHER, SELFPAY ==
[2020-09-26 10:22] VITALS: BMI 45.2
[2020-09-29 10:20] VITALS: BP 196/82; PULSE 82; RESP 20; TEMP 35.8; O2SAT 100; BMI 45.7
[2020-09-29 11:10] LABS: Absolute Lymphocyte Count 0.49 X10^3/uL (0.83-4.51); Absolute Neutrophil Count 4.4 X10^3/uL (2.0-7.7); Basophil# 0.01 X10^3/uL; Basophil% 0.2 % (0-1); Eosinophil# 0.02 X10^3/uL; Eosinophils% 0.4 % (0-5); Hematocrit 28.7 % (37-47); Hemoglobin 8.9 g/dL (12.0-15.0); Lymphocyte # 0.49 X10^3/ul (4.0); Lymphocyte % 9.6 % (19-41); Mean Corpuscular Hgb 30.1 pg (27.0-32.0); Mean Platelet Vol. 11.7 fl (6.2-12.0); Monocyte# 0.22 X10^3/uL; Monocyte% 4.3 % (0-10); NRBC Flagged by Analyzer 0 % (0-5); Neutrophil # 4.37 X10^3/uL (2.7-7.7); Neutrophil % 85.3 % (47-70); POSITIVE DIFFERENTIAL YES; Platelet Count 202 K/mm3 (150-450); RBC Distribution Width CV 16.3 % (11.6-14.6); RBC Distribution Width SD 56.1 fl (35.1-43.9); Red Blood Count 2.96 M/mm3 (4.2-5.4); White Blood Count 5.1 K/mm3 (4.4-11.0)
[2020-09-29 11:11] LABS: Differential Indicated SCAN CRITERIA MET
--- NOTE | 2020-09-29 11:13 | ED.DCSUM_ITS ---
History of Present Illness Chief Complaint: GI Bleed Informant: Patient, Significant Other Onset: Today Narrative: Is a 75-year-old female presenting with black stool. Patient was recently admitted to the hospital for syncope associated with anemia. She is found to martinez ve a GI bleed. She had an upper scope performed by Dr. Snyder which did not show any source of the bleeding for the patient. Patient received a total of 4 units of blood was discharge from the hospital 3 days ago. Today she had her first bowel movement since discharge and states it was very dark and tarry again. She states she has no other new symptoms. She continues to feel weak but has been that way since her discharge. She was taken off her aspirin. She is not on any other anticoagulation. She has a GI doctor in [place] to follow-up with. Her called Dr. Snyder's office who recommend she come in to get her blood checked today. Past Medical History - Allergies and Home Meds Allergies/Adverse Reactions: Allergies pravastatin Adverse Reaction (Severe, Verified 09/29/20 10:22) severe muscle and joint pain Primary Care Physician: Jyothi Weber [employer], [employer] [Primary Care Provider] - Past Medical History: - - Chronic GI bleed, hypertension, hyperlipidemia, diastolic heart failure, coronary artery disease, A. fib, hyperlipidemia Surgical History: appendectomy, hysterectomy, - - R foot surgery. Lives: Spouse/ Significant Other Smoking Status: Never smoker - Family History Maternal Family History: Family History (Last Reviewed 09/24/20 @ 21:[address] Marlon Barcenas MD) Mother Uterine cancer Hypertension Father Heart disease Diabetes CAD (coronary artery disease) Hypertension Family History: Reports: - - Mother with a history of hypertension, uterine cancer. Paternal Family History: Family History (Last Reviewed 09/24/20 @ 21:[address] Marlon Barcenas MD) Mother Uterine cancer Hypertension Father Heart disease Diabetes CAD (coronary artery disease) Hypertension Family History: Reports: - - Father with a history of coronary artery disease, diabetes, heart disease, hypertension. Review of Systems General: Reports: Malaise. Denies: Chills, Fever, Sweats Eyes: Denies: Visual changes - bilaterally, Diplopia ENT: Denies: Rhinorrhea, Sore throat Cardiovascular: Denies: Chest pain, Palpitations Respiratory: Denies: Dyspnea, Cough, Dyspnea on exertion Gastrointestinal: Reports: Melena. Denies: Abdominal pain, Nausea, Vomiting, Diarrhea, Hematochezia Genitourinary: Denies: Dysuria, Hematuria, Frequency Musculoskeletal: Denies: Back pain, Extremity Pain Skin: Denies: Rash, Wounds Neurological: Denies: Headache, Weakness, Numbness Physical Exam Vital Signs/Narrative: Vital Signs Temp Pulse Resp BP Pulse Ox 09/29/20 10:20 96.4 F L 82 20 H 196/82 H 100 Inital Vital Signs reviewed: Yes General: Well nourished, Well developed, Obese, No Acute Distress Head: Normocephalic, Atraumatic Eyes: Perrl, EOMI ENT: Moist mucous membranes, No rhinorrhea Neck: Supple, Nontender Cardiovascular: Regular rate, Regular rhythm, No murmurs Respiratory: No distress, CTA bilaterally, Chest nontender Abdomen: Soft, Nontender, Nondistended, Normal bowel sounds. Negative for: Guarding, Rebound tenderness Back: Nontender, Normal Inspection Extremities: Nontender, No edema Skin: Normal color, No rash. Negative for: Pallor Neurological: Alert, Oriented x3, Cranial nerves II-XII grossly intact, Normal Strength, Normal Sensation Psychological: Normal affect, Normal Mood Diagnostic/Tx/Re-eval Laboratory Data 09/29/20 09/29/20 09/29/20 11:05 11:05 11:05 WBC 5.1 RBC 2.96 L Hgb 8.9 L Hct 28.7 L MCV 97.0 D MCH 30.1 MCHC 31.0 L D RDW Std Deviation 56.1 H RDW Coeff of Fariba 16.3 H Plt Count 202 MPV 11.7 Immature Gran % (Auto) 0.200 Neut % (Auto) 85.3 H Lymph % (Auto) 9.6 L [place] % (Auto) 4.3 Eos % (Auto) 0.4 Baso % (Auto) 0.2 Absolute Neuts (auto) 4.4 Absolute Lymphs (auto) 0.49 L Nucleated RBC % 0 Differential Comment COMMENT PT 14.0 INR 1.1 Sodium 141 Potassium 3.5 Chloride 112 H Carbon Dioxide 24.0 Anion Gap 5 BUN 21 H Creatinine 1.20 H Estim Creat Clear Calc 38.18 Est GFR (MDRD) Af Amer 56 L Est GFR (MDRD) Non-Af 46 L BUN/Creatinine Ratio 17.5 Glucose 137 H Calcium 9.1 Troponin I < 0.015 - Medical Decision Making Evaluated after having an episode of melena. Patient was recently admitted and evaluated for GI bleed/blood loss anemia. She received a total of 4 units of blood while in the hospital. Patient's hemoglobin is actually improved. She is hemodynamically stable in the emergency room. She does not have any new symptoms. I do not think a repeat admission at this time would be beneficial. Patient has appointment to follow-up with hematology, her PCP as well as GI in [place]. I did discuss with her surgeon, Dr. Snyder, agreeable with this plan of care. Patient is counseled on signs and symptoms requiring return to the emergency room. Patient verbalizes agreement and understand this plan. Patient discharged home in stable and improved condition. ED Disposition - Plan for ED Patient: Disposition: Home or Assisted Living Diagnosis: Melena Instructions: ED Upper GI Bleeding (Stable) Referrals: Jyothi Weber NP, [employer] [Primary Care Provider] - Additional Instructions: Your hemoglobin is 8.9 today. It was 7.9 when you were discharged. Please make sure he follow-up with your doctors to make sure that there keep an eye on your red blood cell count. You might continue to have dark stools/bleeding, but this is expected.
[2020-09-29 11:24] LABS: International Normalized Ratio 1.1
[2020-09-29 11:30] LABS: Anion Gap 5 (5-15); BUN 21 mg/dL (7-18); BUN/Creat Ratio 17.5 RATIO (10-20); Calcium,Total 9.1 mg/dL (8.5-10.1); Chloride 112 mmol/L (98-107); EST Glomerular Filtration Rate 46 mL/min (>60); Est Glom Filt Rate - Afr Amer 56 mL/min (>60); Estimated Creatinine Clearance 38.18 ml/min; Glucose 137 mg/dL (74-106); Potassium 3.5 mmol/L (3.5-5.1); Sodium Level 141 mmol/L (136-145)
== END 2020-09-29 12:54 | disposition home or self-care (01) ==
PROVIDERS: Emergency Provider Emergency Medicine; PCP Nurse Practitioner
DX: K92.1 Melena (principal); I25.10 Atherosclerotic heart disease of native coro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 pectoris; I11.0 Hypertensive heart disease with heart failure; I50.32 Chronic diastolic (congestive) heart failure; I48.91 Unspecified atrial fibrillation; E78.5 Hyperlipidemia, unspecified; E66.9 Obesity, unspecified; Z68.42 Body mass index [BMI] 45.0-49.9, adult; Z79.899 Other long term (current) drug therapy
CPT/HCPCS: 80048; 84484; 85025; 85610; 86850; 86900; 86901; 99282; A4216

== ENCOUNTER 2020-10-03 14:18 | Outpatient (CLI) | payer MEDICARE, OTHER, SELFPAY ==
[2020-10-03 15:08] LABS: Absolute Lymphocyte Count 0.97 X10^3/uL (0.83-4.51); Absolute Neutrophil Count 3.7 X10^3/uL (2.0-7.7); Basophil# 0.03 X10^3/uL; Basophil% 0.6 % (0-1); Eosinophil# 0.05 X10^3/uL; Hematocrit 29.1 % (37-47); Hemoglobin 8.9 g/dL (12.0-15.0); Lymphocyte # 0.97 X10^3/ul (4.0); Lymphocyte % 19.1 % (19-41); Mean Corp Hgb Conc 30.6 g/dL (32-36); Mean Corpuscular Hgb 29.6 pg (27.0-32.0); Mean Corpuscular Volume 96.7 fL (81-99); Mean Platelet Vol. 12.2 fl (6.2-12.0); Monocyte% 5.9 % (0-10); NRBC Flagged by Analyzer 0 % (0-5); Neutrophil # 3.71 X10^3/uL (2.7-7.7); Platelet Count 225 K/mm3 (150-450); RBC Distribution Width CV 15.4 % (11.6-14.6); RBC Distribution Width SD 54.2 fl (35.1-43.9); Red Blood Count 3.01 M/mm3 (4.2-5.4); White Blood Count 5.1 K/mm3 (4.4-11.0)
[2020-10-03 15:21] LABS: ALB/GLOB Ratio 1.1 RATIO (0.9-2.4); AST(SGOT) 13 U/L (15-37); Alanine Aminotransfer ALT/SGPT 19 U/L (13-56); Albumin, Serum 3.6 g/dL (3.2-5.0); Alkaline Phosphatase 89 U/L (45-117); Anion Gap 6 (5-15); BUN 22 mg/dL (7-18); BUN/Creat Ratio 17.5 RATIO (10-20); Calcium,Total 8.8 mg/dL (8.5-10.1); Chloride 110 mmol/L (98-107); Creatinine, Serum 1.26 mg/dL (0.55-1.02); EST Glomerular Filtration Rate 44 mL/min (>60); Est Glom Filt Rate - Afr Amer 53 mL/min (>60); Globulin 3.3 g/dL (2.2-4.2); Glucose 89 mg/dL (74-106); Protein, Total 6.9 g/dL (6.4-8.2); Sodium Level 141 mmol/L (136-145)
[2020-10-03 15:25] LABS: Iron 49 ug/dL (50-170); Iron Binding Capacity,Total 343 ug/dL (250-450)
[2020-10-03 22:59] LABS: Xtra Tube EP Lab EXTRA TUBE
== END 2020-10-03 16:00 ==
LOC: MEDOUTP 14:21
PROVIDERS: PCP Nurse Practitioner; Referring Provider Nurse Practitioner; Visit Provider Nurse Practitioner
DX: K92.2 Gastrointestinal hemorrhage, unspecified (principal); E11.9 Type 2 diabetes mellitus without complications
CPT/HCPCS: 36591; 80053; 83540; 83550; 85025; A4216

== ENCOUNTER → 2020-10-10 09:09 | Outpatient (CLI) | payer MEDICARE, OTHER, SELFPAY ==
[2020-09-29 10:20] VITALS: BMI 45.7
[2020-10-10 09:34] LABS: Hematocrit 29.9 % (37-47); Hemoglobin 9.1 g/dL (12.0-15.0); Mean Corp Hgb Conc 30.4 g/dL (32-36); Mean Corpuscular Hgb 29.4 pg (27.0-32.0); Mean Corpuscular Volume 96.5 fL (81-99); Mean Platelet Vol. 12.4 fl (6.2-12.0); Platelet Count 173 K/mm3 (150-450); RBC Distribution Width CV 14.5 % (11.6-14.6); RBC Distribution Width SD 50.7 fl (35.1-43.9); White Blood Count 4.7 K/mm3 (4.4-11.0)
[2020-10-10 10:13] LABS: Iron 31 ug/dL (50-170); Iron Binding Capacity,Total 332 ug/dL (250-450); PERCENT IRON SATURATION 9.3 % (15.0-55.0)
[2020-10-10 17:31] LABS: Xtra Tube EP Lab EXTRA TUBE
== END ==
PROVIDERS: PCP Nurse Practitioner; Referring Provider Nurse Practitioner; Visit Provider Nurse Practitioner
DX: K92.2 Gastrointestinal hemorrhage, unspecified (principal); E11.9 Type 2 diabetes mellitus without complications
CPT/HCPCS: 36591; 83540; 83550; 85027; A4216

== ENCOUNTER 2020-10-17 13:29 | Outpatient (CLI) | payer MEDICARE, OTHER, SELFPAY ==
[2020-10-17 14:01] LABS: Absolute Lymphocyte Count 1.12 X10^3/uL (0.83-4.51); Absolute Neutrophil Count 3.3 X10^3/uL (2.0-7.7); Basophil# 0.03 X10^3/uL; Basophil% 0.6 % (0-1); Eosinophil# 0.07 X10^3/uL; Eosinophils% 1.5 % (0-5); Hematocrit 29.9 % (37-47); Hemoglobin 8.9 g/dL (12.0-15.0); Lymphocyte # 1.12 X10^3/ul (4.0); Lymphocyte % 23.5 % (19-41); Mean Corp Hgb Conc 29.8 g/dL (32-36); Mean Corpuscular Hgb 28.7 pg (27.0-32.0); Mean Corpuscular Volume 96.5 fL (81-99); Mean Platelet Vol. 12.2 fl (6.2-12.0); Monocyte# 0.29 X10^3/uL; Monocyte% 6.1 % (0-10); NRBC Flagged by Analyzer 0 % (0-5); Neutrophil # 3.25 X10^3/uL (2.7-7.7); Neutrophil % 68.1 % (47-70); Platelet Count 176 K/mm3 (150-450); RBC Distribution Width CV 14.1 % (11.6-14.6); RBC Distribution Width SD 49.6 fl (35.1-43.9); White Blood Count 4.8 K/mm3 (4.4-11.0)
[2020-10-17 14:13] LABS: Iron 29 ug/dL (50-170); Iron Binding Capacity,Total 314 ug/dL (250-450)
[2020-10-17 21:58] LABS: Xtra Tube EP Lab EXTRA TUBE
== END 2020-10-17 14:41 | disposition home or self-care (01) ==
LOC: MEDOUTP 13:30
PROVIDERS: PCP Nurse Practitioner; Referring Provider Nurse Practitioner; Visit Provider Nurse Practitioner
DX: K92.2 Gastrointestinal hemorrhage, unspecified (principal)
CPT/HCPCS: 36591; 83540; 83550; 85025; A4216

== ENCOUNTER 2020-11-21 12:53 | Outpatient (CLI) | payer MEDICARE, OTHER, SELFPAY ==
[2020-11-15 13:30] VITALS: BMI 47.3
[2020-11-21 13:33] LABS: Absolute Lymphocyte Count 1.16 X10^3/uL (0.83-4.51); Absolute Neutrophil Count 4.3 X10^3/uL (2.0-7.7); Basophil# 0.03 X10^3/uL; Basophil% 0.5 % (0-1); Eosinophil# 0.09 X10^3/uL; Eosinophils% 1.5 % (0-5); Hematocrit 34.6 % (37-47); Hemoglobin 10.4 g/dL (12.0-15.0); Lymphocyte # 1.16 X10^3/ul (4.0); Lymphocyte % 19.8 % (19-41); Mean Corp Hgb Conc 30.1 g/dL (32-36); Mean Corpuscular Hgb 28.2 pg (27.0-32.0); Mean Corpuscular Volume 93.8 fL (81-99); Mean Platelet Vol. 12.6 fl (6.2-12.0); Monocyte% 5.1 % (0-10); NRBC Flagged by Analyzer 0 % (0-5); Neutrophil # 4.27 X10^3/uL (2.7-7.7); Neutrophil % 72.9 % (47-70); Platelet Count 178 K/mm3 (150-450); RBC Distribution Width CV 15.6 % (11.6-14.6); RBC Distribution Width SD 53.7 fl (35.1-43.9); Red Blood Count 3.69 M/mm3 (4.2-5.4); White Blood Count 5.9 K/mm3 (4.4-11.0)
[2020-11-21 21:28] LABS: Xtra Tube EP Lab EXTRA TUBE
== END 2020-11-21 16:00 | disposition home or self-care (01) ==
LOC: MEDOUTP 12:53
PROVIDERS: PCP Nurse Practitioner; Referring Provider Nurse Practitioner; Visit Provider Nurse Practitioner
DX: K92.2 Gastrointestinal hemorrhage, unspecified (principal)
CPT/HCPCS: 85025; 96523; A4216

== ENCOUNTER → 2020-11-28 13:58 | Outpatient (CLI) | payer MEDICARE, OTHER, SELFPAY ==
[2020-11-15 13:30] VITALS: BMI 47.3
== END ==
PROVIDERS: PCP Nurse Practitioner; Referring Provider Nurse Practitioner; Visit Provider Nurse Practitioner
DX: K92.2 Gastrointestinal hemorrhage, unspecified (principal)
CPT/HCPCS: 36591; A4216

== ENCOUNTER 2020-12-05 12:52 | Outpatient (CLI) | payer MEDICARE, OTHER, SELFPAY ==
[2020-11-29 13:09] VITALS: BMI 47.7
[2020-12-05 13:18] LABS: Absolute Lymphocyte Count 1.19 X10^3/uL (0.83-4.51); Absolute Neutrophil Count 4.6 X10^3/uL (2.0-7.7); Basophil# 0.03 X10^3/uL; Basophil% 0.5 % (0-1); Eosinophils% 1.6 % (0-5); Hematocrit 34.4 % (37-47); Hemoglobin 10.3 g/dL (12.0-15.0); Lymphocyte # 1.19 X10^3/ul (0.83-4.51); Lymphocyte % 19.2 % (19-41); Mean Corp Hgb Conc 29.9 g/dL (32-36); Mean Corpuscular Hgb 28.1 pg (27.0-32.0); Mean Corpuscular Volume 93.7 fL (81-99); Mean Platelet Vol. 12.8 fl (6.2-12.0); Monocyte% 4.8 % (0-10); NRBC Flagged by Analyzer 0 % (0-5); Neutrophil # 4.55 X10^3/uL (2.7-7.7); Neutrophil % 73.4 % (47-70); Platelet Count 160 K/mm3 (150-450); RBC Distribution Width CV 15.9 % (11.6-14.6); RBC Distribution Width SD 55.3 fl (35.1-43.9); Red Blood Count 3.67 M/mm3 (4.2-5.4); White Blood Count 6.2 K/mm3 (4.4-11.0)
[2020-12-05 21:16] LABS: Xtra Tube EP Lab EXTRA TUBE
== END 2020-12-05 15:45 | disposition home or self-care (01) ==
LOC: MEDOUTP 12:52
PROVIDERS: PCP Nurse Practitioner; Visit Provider Nurse Practitioner
DX: K92.2 Gastrointestinal hemorrhage, unspecified (principal); E11.9 Type 2 diabetes mellitus without complications
CPT/HCPCS: 36591; 85025

== ENCOUNTER 2021-05-31 07:46 | Outpatient (CLI) | payer MEDICARE, OTHER, SELFPAY ==
--- NOTE | 2021-05-31 07:48 | ECHOD_ITS ---
Reason For Study: PHTN Procedure This was a 2D Doppler, Color Flow transthoracic echocardiogram. Exam performed in department. Left Ventricle Normal LV size. D shaped septum in diastole. Left ventricular systolic function is normal. No regional wall motion abnormalities noted. Right Ventricle Normal RV size. Normal systolic function. Atria The left atrium is moderately enlarged. The right atrium is moderately enlarged. Mitral Valve Normal mitral valve. Mild (1+) eccentric mitral valve insufficiency. Tricuspid Valve Normal tricuspid valve. Moderate (2+) tricuspid valve insufficiency. Pulmonary artery systolic pressure is 65 mmHg. Aortic Valve Peak aortic valve gradient 33 mmHg. Mean aortic valve gradient 18 mmHg. Mild aortic stenosis. Bioprosthetic aortic valve. Pulmonic Valve Normal pulmonic valve. Mild (1+) pulmonic valve insufficiency. Great Vessels Normal aortic root. The pulmonary artery is normal size. The inferior vena cava is dilated. Pericardium/Pleural No pericardial effusion. MMode/2D Measurements & Calculations LVIDd: 5.8 cm IVSd: 0.95 cm LVOT diam: 2.0 cm LVIDs: 4.1 cm LVPWd: 1.0 cm LVOT area: 3.1 cm2 RVDd: 4.0 cm FS: 30.3 % Ao root diam: 3.1 cm LAV(MOD-bp): 130.6 ml LVAd ap4: 32.1 cm2 LAV(MOD-bp) Indexed: 54.0 ml/m2 LVLd ap4: 7.7 cm LAV(MOD-sp2): 122.4 ml EDV(MOD-sp4): 114.1 ml LAV(MOD-sp4): 127.6 ml EDV(sp4-el): 113.2 ml LVAs ap4: 15.0 cm2 LVLs ap4: 5.7 cm ESV(MOD-sp4): 34.9 ml ESV(sp4-el): 33.3 ml EF(MOD-sp4): 69.4 % EF(sp4-el): 70.6 % SV(MOD-sp4): 79.2 ml SV(sp4-el): 79.9 ml LA A4 area: 34.9 cm2 LA dimension(2D): 5.2 cm RA A4 area: 28.6 cm2 Doppler Measurements & Calculations MV E max luke: 175.4 cm/sec Lat Peak E' Luke: 14.2 cm/sec Med Peak E' Luke: 9.6 cm/sec E/E' lat: 12.3 E/E' med: 18.3 Ao V2 max: 288.3 cm/sec LV V1 max: 130.9 cm/sec SV(LVOT): 108.1 ml Ao max P.3 mmHg LV V1 max P.9 mmHg Ao V2 mean: 198.1 cm/sec LV V1 mean P.9 mmHg Ao mean P.1 mmHg LV V1 mean: 93.4 cm/sec Ao V2 VTI: 69.4 cm LV V1 VTI: 35.2 cm ALONSO(I,D): 1.6 cm2 ALONOS(V,D): 1.4 cm2 PA V2 max: 146.0 cm/sec TR max luke: 390.3 cm/sec TR max P.9 mmHg ECHO/Echo Complete Interpretation Summary Normal LV size. Left ventricular systolic function is normal. D shaped septum in diastole. Compared to the previous the pulmonary hypertension is worse and the aortic vida ve gradients are not significantly changed. Moderate (2+) tricuspid valve insufficiency. Pulmonary artery systolic pressure is 65 mmHg. Bioprosthetic aortic valve. Mean aortic valve gradient 18 mmHg. Ordering Physician: Flavia Coulter/Niraj Raymundo Referring Physician: JEREMIAS MARAVILLA Performed By: Yanna Hankins RDCS
== END 2021-05-31 23:59 | disposition home or self-care (01) ==
PROVIDERS: PCP Nurse Practitioner; Referring Provider Internal Medicine Cardiovascular Disease; Visit Provider Internal Medicine Cardiovascular Disease
DX: I27.29 Other secondary pulmonary hypertension (principal); I50.32 Chronic diastolic (congestive) heart failure; N18.32 Chronic kidney disease, stage 3b; D50.0 Iron deficiency anemia secondary to blood loss (chronic); D63.1 Anemia in chronic kidney disease
CPT/HCPCS: 36591; 82728; 83540; 83550; 85025; 93306; 96365; 96366; J1756; J7050; A4216

== ENCOUNTER → 2021-08-01 08:28 | Outpatient (CLI) | payer MEDICARE, OTHER, SELFPAY ==
--- NOTE | 2021-08-01 08:31 | BI_ITS ---
MAMMOGRAPHY - BILATERAL SCREENING REASON FOR EXAM: Female, 76 years old. Routine annual screening examination. PERTINENT HISTORY: Non-contributory. TECHNIQUE: Digital bilateral breast jodi (3D mammographic acquisition) in the CC and MLO projections. 2-D mediolateral oblique (MLO) and craniocaudad (CC) views of both breasts were obtained. CAD: Full Field Digital Mammography with Computer Added Detection was performed. COMPARISON: Comparison is made with prior study 07/20/2020 and August 04 2019''. FINDINGS: Breast Composition: There are scattered areas of fibroglandular density. There are no dominant masses or suspicious calcifications. No other significant abnormalities are identified. There has been no significant change since the prior study. BI/SCRN MAMM (CAD)W/JODI BILAT IMPRESSION: Stable bilateral screening mammogram. Yearly follow-up mammogram recommended. (A) ASSESSMENT CATEGORY: BIRADS Category 1: Negative. A letter regarding these results will be sent to the patient by the facility within 30 days. Approximately 10% of breast cancers are not detected by mammography. A normal mammogram should not delay biopsy of a clinically suspicious abnormality. [id number] Electronically Signed: Irvin Edwards MD at 9:10 EST , Service support ,
== END ==
PROVIDERS: PCP Nurse Practitioner; Visit Provider Nurse Practitioner
DX: Z12.31 Encounter for screening mammogram for malignant neoplasm of breast (principal)
CPT/HCPCS: 77063; 77067

== ENCOUNTER 2021-10-16 11:19 | Outpatient (CLI) | payer MEDICARE, OTHER, SELFPAY ==
[2021-10-16 12:08] LABS: Absolute Lymphocyte Count 0.79 X10^3/uL (0.83-4.51); Absolute Neutrophil Count 5.2 X10^3/uL (2.0-7.7); Basophil# 0.02 X10^3/uL; Basophil% 0.3 % (0-1); Eosinophil# 0.06 X10^3/uL; Eosinophils% 0.9 % (0-5); Hematocrit 35.3 % (37-47); Hemoglobin 11.5 g/dL (12.0-15.0); Lymphocyte # 0.79 X10^3/ul (0.83-4.51); Lymphocyte % 12.3 % (19-41); Mean Corp Hgb Conc 32.6 g/dL (32-36); Mean Corpuscular Hgb 31.9 pg (27.0-32.0); Mean Corpuscular Volume 97.8 fL (81-99); Mean Platelet Vol. 12.7 fl (6.2-12.0); Monocyte# 0.34 X10^3/uL; Monocyte% 5.3 % (0-10); NRBC Flagged by Analyzer 0 % (0-5); Neutrophil # 5.18 X10^3/uL (2.7-7.7); Neutrophil % 80.9 % (47-70); Platelet Count 145 K/mm3 (150-450); RBC Distribution Width SD 46.4 fl (35.1-43.9); Red Blood Count 3.61 M/mm3 (4.2-5.4); White Blood Count 6.4 K/mm3 (4.4-11.0)
[2021-10-16 12:43] LABS: BNP,B-Type NATRIURETIC PEPTIDE 111.6 pg/mL (0-100)
[2021-10-16 14:06] LABS: AST(SGOT) 15 U/L (15-37); Alanine Aminotransfer ALT/SGPT 20 U/L (13-56); Albumin, Serum 3.8 g/dL (3.2-5.0); Alkaline Phosphatase 88 U/L (45-117); Anion Gap 5 (5-15); BUN 36 mg/dL (7-18); BUN/Creat Ratio 27.3 RATIO (10-20); Bilirubin, Direct 0.16 mg/dL (0.00-0.30); Calcium,Total 9.5 mg/dL (8.5-10.1); Chloride 112 mmol/L (98-107); Creatinine, Serum 1.32 mg/dL (0.55-1.02); EST Glomerular Filtration Rate 41 mL/min (>60); Est Glom Filt Rate - Afr Amer 50 mL/min (>60); Glucose 100 mg/dL (74-106); Potassium 4.3 mmol/L (3.5-5.1); Protein, Total 7.8 g/dL (6.4-8.2); Sodium Level 140 mmol/L (136-145); Thyroid Stim Hormone (TSH) 3.03 uIU/mL (0.358-3.74)
== END 2021-10-16 23:59 | disposition home or self-care (01) ==
LOC: MEDOUTP 11:22
PROVIDERS: PCP Nurse Practitioner; Referring Provider Internal Medicine Pulmonary Disease; Visit Provider Internal Medicine Pulmonary Disease
DX: I27.0 Primary pulmonary hypertension (principal); E11.22 Type 2 diabetes mellitus with diabetic chronic kidney disease; N18.30 Chronic kidney disease, stage 3 unspecified; D63.1 Anemia in chronic kidney disease; R06.00 Dyspnea, unspecified; Z79.899 Other long term (current) drug therapy
CPT/HCPCS: 36591; 80053; 82248; 83880; 84443; 85025; A4216

== ENCOUNTER → 2022-08-08 | Outpatient (CLI) | payer MEDICARE, OTHER, SELFPAY ==
--- NOTE | 2022-08-08 09:52 | BI_ITS ---
MAMMOGRAPHY - BILATERAL SCREENING REASON FOR EXAM: Female, 77 years old. Routine annual screening examination. PERTINENT HISTORY: Non-contributory. TECHNIQUE: Digital bilateral breast jodi (3D mammographic acquisition) in the CC and MLO projections. 2-D mediolateral oblique (MLO) and craniocaudad (CC) views of both breasts were obtained. CAD: Full Field Digital Mammography with Computer Added Detection was performed. COMPARISON: Comparison is made with prior study 08/01/2021 and 07/20/2020. FINDINGS: Breast Composition: There are scattered areas of fibroglandular density. There are no dominant masses or suspicious calcifications. No other significant abnormalities are identified. There has been no significant change since the prior study. BI/SCRN MAMM (CAD)W/JODI BILAT IMPRESSION: Stable bilateral screening mammogram. Yearly follow-up mammogram recommended. (A) ASSESSMENT CATEGORY: BIRADS Category 1: Negative. A letter regarding these results will be sent to the patient by the facility within 30 days. Approximately 10% of breast cancers are not detected by mammography. A normal mammogram should not delay biopsy of a clinically suspicious abnormality. [id number] Electronically Signed: Irvin Edwards MD at 10:43 EST ,
--- NOTE | 2022-08-08 10:20 | BD_ITS ---
STUDY: DUAL ENERGY X-RAY ABSORPTIOMETRY / DXA REASON FOR EXAM: Female, 77 years old. [id number] TECHNIQUE: Bone Mineral Density (BMD) measurements of lumbar spine and bilateral hips were obtained. COMPARISON: Comparison is made with prior examination dated 07/20/2022. FINDINGS: Lumbar Spine (L1-L4): g/cm2 (1.166) / T-score (1.2) / Z-score (3.8) Findings are suggestive of normal bone density with a low fracture risk. Left Femur Total: g/cm2 (0.873) / T-score (-0.6) / Z-score (1.4) Left Femoral Neck: g/cm2 (0.690) / T-score (-1.4) / Z-score (0.8) Right Femur Total: g/cm2 (0.898) / T-score (-0.4) / Z-score (1.7) Right Femoral Neck: g/cm2 (0.673) / T-score (-1.6) / Z-score (0.7) The T-Scores on the most recent prior examination were: Lumbar Spine (L1-L4): There has been worsening of bone density since the previous examination. Left Femur Total: which represents an improvement of 4.6%. Right Femur Total: which represents an improvement of 4.7%. BD/Dexa Bone Density Study IMPRESSION: The patient is considered osteopenic as outlined below according to World Mike Organization (WHO) criteria with a moderate fracture risk. There has been improvement of bone density since the previous examination. Reference Information: The T-score is the number of standard deviations above or below the standard which is normal for young adults at their peak bone mineral density. The World Health Organization (WHO) interprets the T-scores as follows: Above -1 Normal bone density Between -1 and -2.5 Osteopenia Equal to / or below -2.5 Osteoporosis As a practical clinical guideline, osteopenia may be graded as follows: Mild -1 through -1.5 Moderate -1.6 through -2.0 Severe -2.1 through -2.4 The Z-score is the number of standard deviations above or below age-matched controls. A Z-score of less than -1.5 would be considered abnormal. References: 1. NIH Osteoporosis and Related Bone Diseases www osteo.org 2. International Society for Clinical Densitometry www iscd.org 3. National Osteoporosis Foundation www nof.org Electronically Signed: Irvin Edwards MD at 9:36 EST ,
== END | disposition home or self-care (01) ==
LOC: OPBD 09:49
PROVIDERS: PCP Nurse Practitioner Family; Visit Provider Nurse Practitioner Family
DX: Z13.820 Encounter for screening for osteoporosis (principal); Z78.0 Asymptomatic menopausal state; Z12.31 Encounter for screening mammogram for malignant neoplasm of breast
CPT/HCPCS: 77063; 77067; 77080

== ENCOUNTER 2022-10-03 09:15 | Outpatient (RCR) | payer MEDICARE, OTHER, SELFPAY ==
[2022-09-19 09:35] VITALS: BP 149/69; PULSE 68; TEMP 36.2; BMI 51.1
--- NOTE | 2022-09-19 11:59 | HP.PCM_ITS ---
History of Present Illness Date of Service: 09/19/22 Chief Complaint: Left lower leg ulcer History of Wound: 77-year-old obese white female with venous insufficiency in her lower extremities. She does use pumps only 1 hour/day. She has an open area on the left lower area that is superficial but venous based. [facility] Medical History Acute blood loss anemia (09/24/20) Anemia Anemia in chronic kidney disease (CKD) Anemia of chronic renal failure, stage 3 (moderate) Arthritis Bloody stool Chronic diastolic (congestive) heart failure Chronic GI bleeding Diverticulitis Essential (primary) hypertension Fatigue History of blood transfusion History of GI bleed History of pneumonia Hyperkalemia Hyperlipidemia Iron deficiency anemia Iron deficiency anemia due to chronic blood loss Knee pain Liver disease [facility] (current) use of anticoagulants Longstanding persistent atrial fibrillation Morbid obesity Non-ST elevation (NSTEMI) myocardial infarction (12/09/16) Nonobstructive atherosclerosis of coronary artery Nonrheumatic aortic (valve) stenosis Nonrheumatic mitral (valve) insufficiency Nonrheumatic tricuspid (valve) insufficiency Osteopenia Other secondary pulmonary hypertension Presence of IVC filter (09/2018) Sepsis secondary to UTI 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 Type 2 diabetes mellitus Home Medications cholecalciferol (vitamin D3) 50 mcg (2,000 unit) capsule 2,000 unit PO DAILY supplement 11/18/17 [History Last Taken 11/29/17 07:00] ropinirole 0.25 mg tablet 0.25 mg PO QHS restless legs 11/18/17 [History Last Taken 11/28/17 22:00] sildenafil (pulm.hypertension) 20 mg tablet 20 mg PO TID pulmonary HTN 11/18/17 [History Last Taken 11/29/17 12:00] magnesium 250 mg tablet 250 mg PO DAILY SUPPLEMENT 10/09/18 [History Last Taken Unknown] ferrous sulfate 325 mg (65 mg iron) tablet (Melissa-Time) 325 mg PO DAILY anemia 04/14/19 [History Last Taken Unknown] metoprolol succinate 100 mg tablet,extended release 24 hr 50 mg PO DAILY Afib 11/03/19 [History Last Taken Unknown] ascorbic acid (vitamin C) 500 mg capsule 500 mg PO DAILY supplement 05/10/20 [History Last Taken Unknown] cyanocobalamin (vitamin B-12) 2,500 mcg sublingual lozenge 2,500 mcg sublingual .QOD supplement 05/10/20 [History Last Taken Unknown] melatonin 5 mg capsule 5 mg PO QHS sleep 05/10/20 [History Last Taken Unknown] lisinopril 2.5 mg tablet 2.5 mg PO DAILY 12/26/20 [History Last Taken Unknown] pantoprazole 40 mg tablet,delayed release 40 mg PO DAILY Acid 03/06/21 [History Last Taken Unknown] warfarin 4 mg tablet 6 mg PO DAILY #45 tabs 08/22/21 [Rx Last Taken Unknown] wheat dextrin 3 gram/3.5 gram oral powder packet (Benefiber Clear Sugar Free(dextrin)) 1.75 g PO TID 10/24/21 [History Last Taken Unknown] amoxicillin 500 mg tablet 500 mg PO .COMPLEX atb #4 tabs 10/30/21 [Rx Last Taken Unknown] furosemide 40 mg tablet (Lasix) 40 mg PO DAILY edema #90 tabs 03/20/22 [Rx Last Taken Unknown] potassium chloride 10 mEq capsule,extended release 10 meq PO DAILY PRN PRN taken with lasix supplement #0 caps 03/30/22 [Rx Last Taken Unknown] amlodipine 10 mg tablet 10 mg PO DAILY #90 tabs 06/27/22 [Rx Last Taken Unknown] Allergy/AdvReac Type Severity Reaction Status Date / Time pravastatin AdvReac Severe severe Verified 08/27/22 11:27 muscle and joint pain Family History Mother , age 83 Uterine cancer Hypertension Father , age 81 Heart disease Diabetes CAD (coronary artery disease) Hypertension Surgical History coil embolization of colonic artery H/O aortic valve replacement (09/15/18) History of appendectomy History of hysterectomy History of left heart catheterization (LHC) (04/10/17) History of root canal procedure Status post right foot surgery Social History household members: spouse housing: house Smoking Status: Never smoker alcohol intake: never substance use type: does not use caffeine: No what type of physical activity do you participate in: none divina/orthodox: Mennonite seatbelt use: always do you feel safe at home: Yes ROS Constitutional Constitutional: Reports systems reviewed and no addt'l complaints, except as documented Cardiovascular Cardiovascular: Reports systems reviewed and no addt'l complaints, except as documented Respiratory/Chest Respiratory/Chest: Reports systems reviewed and no addt'l complaints, except as documented Gastrointestinal Gastrointestinal: Reports systems reviewed and no addt'l complaints, except as documented Integumentary Integumentary: Reports wounds and other Details: Venous leg wound left lower leg superficial Neurologic Neurologic: Reports systems reviewed and no addt'l complaints, except as documented Psychiatric Psychiatric: Reports systems reviewed and no addt'l complaints, except as documented Vital Signs Vital Signs Vital Signs: 09/19/22 09:35 Temperature 97.1 F L Temperature Source Temporal Pulse Rate 68 Blood Pressure 149/69 H Blood Pressure Mean 95 Blood Pressure Source Monitor Weight Weight: 317 lb Body Mass Index (BMI) 51.1 Physical Exam Const oriented x3 General Appearance: cooperative Exam Limitations: no limitations HEENT normocephalic Head and Scalp: normal to inspection Face and Sinus: normal facial exam Nose: external nose normal General Ear: hearing grossly impaired External Ear: external ears normal Mouth: oral and palatal mucosa normal Eyes PERRL General Eye: normal appearance of both eyes Neck full ROM General: normal visual inspection Resp normal respiratory effort Effort and Inspection: able to speak in complete sentences Auscultation: clear to auscultation bilaterally Cardio regular rate and regular rhythm Palpation: normal PMI Rate: regular rate Rhythm: regular rhythm GI Auscultation: normoactive bowel sounds Palpation: soft and no hepatosplenomegaly external exam normal Back/Spine Cervical Spine: cervical ROM normal Thoracic Spine / Upper Back: normal to inspection Lumbar Spine / Lower Back: normal to inspection Extremity normal to inspection General Extremity: normal exam except as noted Skin Skin Narrative: Open superficial wounds of venous nature on left lower leg. Stasis dermatitis on both lower legs very thin ankles up to mid calf and then she is extremely large from the mid calf all the way up to the thigh. Neuro oriented x3 Psych Appearance: grossly normal Speech: normal speech Thought Content: normal thought content Judgement: judgement good Debridement Note Debridement Note Wound debrided: Left lower leg venous ulcer Type of Debridement: Excisional debridement Anesthesia Used: 5% Lidocaine Gel Depth: Down to and including healthy tissue Percentage of wound debrided: 100 Instrument Used: 7mm curette Tissue Removed: Devitalized tissue Severity: Limited To Skin Breakdown Amount of bleeding with debridement: None Bleeding Controlled with: Compression and gauze Patient tolerated procedure: Patient tolerated procedure well Post-Debridement Measurements and Additional Note: Post-Debridement Measurements/Treatment - Nurse 1 - General Ulcer Assessment Start: 09/19/22 09:22 Freq: Status: Active Protocol: MAE Activity Type Activity Date Activity User E-sign Co-sign Detail Recorded Client Recorded Date Recorded By Document 09/19/22 09:35 SD [id number] 09/19/22 09:39 DHARMESH 09/19/22 09:35 WC - Today's Visit Information Type of service Initial Visit Arrival Mode Ambulatory Patient Identification Verified (Name & Yes ) Patient Requires Transmission-Based No Precautions Height and Weight Height 5 ft 6 in Weight 317 lb Weight in Pounds 317.0 lbs Body Mass Index (BMI) 51.1 BMI Classification Obese BSA - Taiwo 2.43 Vital Signs Temperature (97.8 F-99.1 F) 97.1 F L Temperature Source Temporal Pulse Rate (60-100) 68 Pulse Location Monitor Blood Pressure (90/60-120/80) 149/69 H Blood Pressure Mean 95 Source Monitor History Since Last Visit- (Skip if this is Patient's initial visit) Left Footwear Regular Shoe Right Footwear Regular Shoe Pain Scale: 0-10 Numeric Is Patient Pain Free? Yes [facility] Nurse 1 - General Ulcer Measurement Start: 09/19/22 09:22 Freq: Status: Active Protocol: Activity Type Activity Date Activity User E-sign Co-sign Detail Recorded Client Recorded Date Recorded By Document 09/19/22 09:35 SD [id number] 09/19/22 09:39 DHARMESH 09/19/22 09:35 Wound Center Nurse 1 #2 L rosado -Combined with other wound No -Current Size (cm) - Length 2 -Current Size (cm) - Width 1 -Current Size (cm) - Depth 0.1 -Total Square Cm 2 -Date of Last Picture (Recall this 09/19/22 field) -Photo Taken Yes -Tunneling No -Undermining/Tunneling No -Circular Undermining No -Change in Wound Grade/Stage No -Exudate Amt Medium -Exudate Type Serosanguineous -Wound Margin Distinct, Outline Attached -Granulation Amt None Present (0 %) -Granulation Quality N/A -Slough/Fibrin No -Necrosis Amt None Present (0 %) -Structure Exposed N/A -Texture (Corina-wound Skin Appearance) No Abnormality, Assessed -Moisture (Corina-wound Skin Appearance) No Abnormality, Assessed -Color (Corina-wound Skin Appearance) No Abnormality, Assessed -Temperature (Corina-wound Skin No Abnormality Appearance) (Pt Warm) -Tenderness on Palpation (Corina-wound No Skin Appearance) -Ulcer Cleansing Rinsed/ Irrigated with Saline -Foul Odor after Cleansing No -Anesthetic Used 5% Lidocaine Gel #1 L Medial LE -Combined with other wound No -Current Size (cm) - Length 3 -Current Size (cm) - Width 6 -Current Size (cm) - Depth 0.1 -Total Square Cm 18 -Photo Taken Yes -Tunneling No -Undermining/Tunneling No -Circular Undermining No -Change in Wound Grade/Stage No -Exudate Amt Medium -Exudate Type Serosanguineous -Wound Margin Distinct, Outline Attached -Granulation Amt Small (1-33%) -Granulation Quality Caspar -Slough/Fibrin Yes -Necrosis Amt Medium (34-66%) -Necrotic Tissue Type Adherent Slough -Structure Exposed N/A -Texture (Corina-wound Skin Appearance) No Abnormality, Assessed -Moisture (Corina-wound Skin Appearance) No Abnormality, Assessed -Color (Corina-wound Skin Appearance) No Abnormality, Assessed -Temperature (Corina-wound Skin No Abnormality Appearance) (Pt Warm) -Tenderness on Palpation (Corina-wound No Skin Appearance) -Ulcer Cleansing Rinsed/ Irrigated with Saline -Foul Odor after Cleansing No -Anesthetic Used 5% Lidocaine Gel Right Calf (cm) 53 Right Ankle (cm) 28 Left Calf (cm) 57 Left Ankle (cm) 29 WC - Nurse 2 - General Ulcer CM Notes Start: 09/19/22 09:22 Freq: Status: Active Protocol: Activity Type Activity Date Activity User E-sign Co-sign Detail Recorded Client Recorded Date Recorded By Document 09/19/22 09:51 MW [id number] 09/19/22 09:56 MW 09/19/22 09:51 Wound Center Nurse 2 #2 L rosado -Time 09:52 -Correct Patient Yes -Correct Side, Site, Position Yes -Correct Procedure Yes -Procedure Performed Yes -Type of Procedure Debridement -Clinical Debridement Subcutaneous -Tissue Removed Subcutaneous -Post Debridement (cm) - Length 0.1 -Post Debridement (cm) - Width 0.1 -Post Debridement (cm) - Depth 0.1 -Total Square (Post) (cm) 0.01 -Area of Debridement (cm) - Length 0.1 -Area of Debridement (cm) - Width 0.1 -Total Square (Area) (cm) 0.01 -Tunneling No -Undermining/Tunneling No -Circular Undermining No -Wound/Ulcer Outcome Not Healed -Ulcer Cleansing Rinsed/ Irrigated with Saline -Foul Odor after Cleansing No -Bioengineered Tissue No -Bleeding Controlled with Pressure -Treatment Response Procedure Tolerated Well -Offloading No -Debridement - Subq, 1st 20sq cm Yes -Debridement, SubQ, ea addt'l 20sq cm 1 or part thereof #1 L Medial LE -Time 09:53 -Correct Patient Yes -Correct Side, Site, Position Yes -Correct Procedure Yes -Procedure Performed Yes -Type of Procedure Debridement -Clinical Debridement Subcutaneous -Tissue Removed Subcutaneous -Post Debridement (cm) - Length 4.0 -Post Debridement (cm) - Width 5.5 -Post Debridement (cm) - Depth 0.1 -Total Square (Post) (cm) 22.00 -Area of Debridement (cm) - Length 4.0 -Area of Debridement (cm) - Width 5.0 -Total Square (Area) (cm) 20.00 -Tunneling No -Undermining/Tunneling No -Circular Undermining No -Wound/Ulcer Outcome Not Healed -Ulcer Cleansing Rinsed/ Irrigated with Saline -Foul Odor after Cleansing No -Bioengineered Tissue No -Bleeding Controlled with Pressure -Treatment Response Procedure Tolerated Well -Debridement - Subq, 1st 20sq cm No Pain Scale: 0-10 Numeric Is Patient Pain Free? Yes - Nurse 3 - General Ulcer D/C NN Start: 09/19/22 09:22 Freq: Status: Active Protocol: Activity Type Activity Date Activity User E-sign Co-sign Detail Recorded Client Recorded Date Recorded By Document 09/19/22 10:14 [facility] [id number] 09/19/22 10:14 [facility] 09/19/22 10:14 Wound Care Center Nurse 3 #2 L rosado -Ulcer Cleansing Rinsed/ Irrigated with Saline -Foul Odor after Cleansing No -Primary Dressing Applied NonAdherent Contact Layer -Other Dressing XEROFORM/ ADAPTIC -Primary Dressing Covered/Secured with Dry Gauze & Roll Gauze, Secured with Tape -Other Covering ABD #1 L Medial LE -Ulcer Cleansing Rinsed/ Irrigated with Saline -Foul Odor after Cleansing No -Other Dressing ADAPTIC, XEROFORM -Primary Dressing Covered/Secured with Dry Gauze & Roll Gauze, Secured with Tape -Other Covering ABD Left -Compression Wrap Camron Wrap Treatment Response Procedure Tolerated Well Pain Scale: 0-10 Numeric Is Patient Pain Free? Yes WC - Visit Discharge Discharge Condition Stable Ambulatory Status Ambulatory Transportation Private Auto Accompanied by JESUS Assessment/Plan Assessment/Plan (1) Morbid obesity: CODE(S): E66.01 - Morbid (severe) obesity due to excess calories (2) Venous ulcer of left leg: CODE(S): I83.029 - Varicose veins of left lower extremity with ulcer of unspecified site; L97.929 - Non-pressure chronic ulcer of unspecified part of left lower leg with unspecified severity PLAN: Wash left leg with antibacterial soap and water apply Xeroform to wound area covered with Adaptic then gauze and Colby patient is to increase use of her compression pumps to 1 hour in the morning 1 hour in the evening Follow-up in 2 weeks (3) Type 2 diabetes mellitus: CODE(S): E11.9 - Type 2 diabetes mellitus without complications
[2022-10-03 08:30] VITALS: BP 176/53; PULSE 54; RESP 16; TEMP 36.2; BMI 51.1
--- NOTE | 2022-10-03 08:44 | WC ---
Juan Luis healed out ordered to use compression pumps and educated on importance of leg elevation.
--- NOTE | 2022-10-03 09:13 | PN.PCM_ITS ---
History of Present Illness Date of Service: 10/03/22 Chief Complaint: Left lower leg ulcer History of Wound: 77-year-old obese white female with venous insufficiency in her lower extremities. She does use pumps only 1 hour/day. She has an open area on the left lower area that is superficial but venous based. Progress of Wound: Today the wounds are healed patient will be discharged from the wound center. Having her increase her pumping to twice a day has been very beneficial for patient and help with healing. Subjective Subjective Patient is very happy that she healed so quickly Objective Data Objective Data No sign of any wounds skin is smooth and supple still has the discoloration under her legs from the blood from her venous insufficiency and she has abnormally shaped thin ankles to mid rosado and then bulging upper calf and thighs. Basically unable to wear compression stockings for that reason. The pumps work really well for her Vital Signs: Vital Signs Temp Pulse Resp BP 97.1 F L 54 L 16 176/53 H 10/03/22 08:30 10/03/22 08:30 10/03/22 08:30 10/03/22 08:30 Weight: 317 lb Body Mass Index (BMI) 51.1 Lab / Micro Data Attestation: I reviewed the patient's lab results. Physical Exam Const oriented x3 General Appearance: cooperative Exam Limitations: no limitations HEENT normocephalic Head and Scalp: normal to inspection Face and Sinus: normal facial exam Nose: external nose normal General Ear: hearing grossly impaired External Ear: external ears normal Mouth: oral and palatal mucosa normal Eyes PERRL General Eye: normal appearance of both eyes Neck full ROM General: normal visual inspection Resp normal respiratory effort Effort and Inspection: able to speak in complete sentences Auscultation: clear to auscultation bilaterally Cardio regular rate and regular rhythm Palpation: normal PMI Rate: regular rate Rhythm: regular rhythm GI Auscultation: normoactive bowel sounds Palpation: soft and no hepatosplenomegaly external exam normal Back/Spine Cervical Spine: cervical ROM normal Thoracic Spine / Upper Back: normal to inspection Lumbar Spine / Lower Back: normal to inspection Extremity normal to inspection General Extremity: normal exam except as noted Skin Skin Narrative: Open superficial wounds of venous nature on left lower leg. Stasis dermatitis on both lower legs very thin ankles up to mid calf and then she is extremely large from the mid calf all the way up to the thigh. Neuro oriented x3 Psych Appearance: grossly normal Speech: normal speech Thought Content: normal thought content Judgement: judgement good Debridement Note Debridement Note No debridement was completed: No debridement was completed today Post-Debridement Measurements and Additional Note: Post-Debridement Measurements/Treatment - Nurse 1 - General Ulcer Assessment Start: 09/19/22 09:22 Freq: Status: Active Protocol: SHERRY.LOWEXT Activity Type Activity Date Activity User E-sign Co-sign Detail Recorded Client Recorded Date Recorded By Document 09/19/22 09:35 AK [id number] 09/19/22 09:39 AK Document 10/03/22 08:30 ML [id number] 10/03/22 08:32 ML 09/19/22 10/03/22 09:35 08:30 WC - Today's Visit Information Type of service Initial Visit Follow-up Visit (Physician/DEBURRER MACHINE ) Arrival Mode Ambulatory Ambulatory Transfer Assistance None Patient Identification Verified (Name & Yes Yes ) Patient Requires Transmission-Based No No Precautions Safety Precautions NA Height and Weight Height 5 ft 6 in Weight 317 lb Weight in Pounds 317.0 lbs Body Mass Index (BMI) 51.1 51.1 BMI Classification Obese Obese BSA - Taiwo 2.43 Vital Signs Temperature (97.8 F-99.1 F) 97.1 F L 97.1 F L Temperature Source Temporal Temporal Pulse Rate (60-100) 68 54 L Pulse Location Monitor Monitor Respiratory Rate (12-18) 16 Respiratory rate source Observation Blood Pressure (90/60-120/80) 149/69 H 176/53 H Blood Pressure Mean (mm Hg) 95 94 Source Monitor Monitor Position Sitting Blood Pressure Location Right Forearm History Since Last Visit- (Skip if this is Patient's initial visit) Have you changed medications since your No last visit? Any new allergies or adverse reactions No Had a fall/change in ADL's that may No increase risk of falls Signs or symptoms of abuse and/or No neglect since last visit Have you been in the hospital since your No last visit? Has dressing in place as prescribed No Has compression in place as prescribed N/A Has offloadiing in place as prescribed N/A Experienced any changes in pain level or No management Left Footwear Regular Shoe Regular Shoe Right Footwear Regular Shoe Regular Shoe Pain Scale: 0-10 Numeric Is Patient Pain Free? Yes Yes WC - Nurse 1 - General Ulcer Measurement Start: 09/19/22 09:22 Freq: Status: Active Protocol: Activity Type Activity Date Activity User E-sign Co-sign Detail Recorded Client Recorded Date Recorded By Document 09/19/22 09:35 AK [id number] 09/19/22 09:39 AK Document 10/03/22 08:30 ML [id number] 10/03/22 08:32 ML 09/19/22 10/03/22 09:35 08:30 Wound Center Nurse 1 #2 L rosado -Combined with other wound No -Current Size (cm) - Length 2 0.1 -Current Size (cm) - Width 1 0.1 -Current Size (cm) - Depth 0.1 0.1 -Total Square Cm 2 0.01 -Date of Last Picture (Recall this 09/19/22 field) -Photo Taken Yes -Tunneling No -Undermining/Tunneling No -Circular Undermining No -Change in Wound Grade/Stage No -Exudate Amt Medium None Present -Exudate Type Serosanguineous -Wound Margin Distinct, Outline Attached -Granulation Amt None Present (0 Large (67-100%) %) -Granulation Quality N/A [place] -Slough/Fibrin No No -Necrosis Amt None Present (0 None Present (0 %) %) -Structure Exposed N/A -Texture (Corina-wound Skin Appearance) No Abnormality, Assessed Assessed -Moisture ([place]-wound Skin Appearance) No Abnormality, Assessed Assessed -Color ([place]-wound Skin Appearance) No Abnormality, Assessed Assessed -Temperature ([place]-wound Skin No Abnormality No Abnormality Appearance) (Pt Warm) (Pt Warm) -Tenderness on Palpation ([place]-wound No No Skin Appearance) -Ulcer Cleansing Rinsed/ Rinsed/ Irrigated with Irrigated with Saline Saline -Foul Odor after Cleansing No No -Anesthetic Used 5% Lidocaine Gel #1 L Medial LE -Combined with other wound No -Current Size (cm) - Length 3 0.1 -Current Size (cm) - Width 6 0.1 -Current Size (cm) - Depth 0.1 0.1 -Total Square Cm 18 0.01 -Photo Taken Yes -Tunneling No -Undermining/Tunneling No -Circular Undermining No -Change in Wound Grade/Stage No -Exudate Amt Medium None Present -Exudate Type Serosanguineous -Wound Margin Distinct, Outline Attached -Granulation Amt Small (1-33%) None Present (0 %) -Granulation Quality [place] -Slough/Fibrin Yes -Necrosis Amt Medium (34-66%) None Present (0 %) -Necrotic Tissue Type Adherent Slough -Structure Exposed N/A -Texture ([place]-wound Skin Appearance) No Abnormality, Assessed Assessed -Moisture ([place]-wound Skin Appearance) No Abnormality, Assessed Assessed -Color ([place]-wound Skin Appearance) No Abnormality, Assessed Assessed -Temperature ([place]-wound Skin No Abnormality No Abnormality Appearance) (Pt Warm) (Pt Warm) -Tenderness on Palpation ([place]-wound No No Skin Appearance) -Ulcer Cleansing Rinsed/ Rinsed/ Irrigated with Irrigated with Saline Saline -Foul Odor after Cleansing No No -Anesthetic Used 5% Lidocaine Gel Right Calf (cm) 53 Right Ankle (cm) 28 Left Calf (cm) 57 Left Ankle (cm) 29 WC - Nurse 2 - General Ulcer CM Notes Start: 09/19/22 09:22 Freq: Status: Active Protocol: Activity Type Activity Date Activity User E-sign Co-sign Detail Recorded Client Recorded Date Recorded By Document 09/19/22 09:51 MW [id number] 09/19/22 09:56 MW Document 10/03/22 08:38 MW [id number] 10/03/22 08:40 MW 09/19/22 10/03/22 09:51 08:38 Wound Center Nurse 2 #2 L rosado -Time 09:52 08:39 -Correct Patient Yes Yes -Correct Side, Site, Position Yes Yes -Correct Procedure Yes Yes -Procedure Performed Yes No -Type of Procedure Debridement -Clinical Debridement Subcutaneous -Tissue Removed Subcutaneous -Post Debridement (cm) - Length 0.1 0 -Post Debridement (cm) - Width 0.1 0 -Post Debridement (cm) - Depth 0.1 0 -Total Square (Post) (cm) 0.01 0 -Area of Debridement (cm) - Length 0.1 -Area of Debridement (cm) - Width 0.1 -Total Square (Area) (cm) 0.01 -Tunneling No -Undermining/Tunneling No -Circular Undermining No -Wound/Ulcer Outcome Not Healed Healed- Epithelialized -Ulcer Cleansing Rinsed/ Irrigated with Saline -Foul Odor after Cleansing No -Bioengineered Tissue No -Bleeding Controlled with Pressure -Treatment Response Procedure Tolerated Well -Offloading No -Debridement - Subq, 1st 20sq cm Yes -Debridement, SubQ, ea addt'l 20sq cm 1 or part thereof #1 L Medial LE -Time 09:53 08:39 -Correct Patient Yes Yes -Correct Side, Site, Position Yes Yes -Correct Procedure Yes Yes -Procedure Performed Yes No -Type of Procedure Debridement -Clinical Debridement Subcutaneous -Tissue Removed Subcutaneous -Post Debridement (cm) - Length 4.0 0 -Post Debridement (cm) - Width 5.5 0 -Post Debridement (cm) - Depth 0.1 0 -Total Square (Post) (cm) 22.00 0 -Area of Debridement (cm) - Length 4.0 -Area of Debridement (cm) - Width 5.0 -Total Square (Area) (cm) 20.00 -Tunneling No -Undermining/Tunneling No -Circular Undermining No -Wound/Ulcer Outcome Not Healed Healed- Epithelialized -Ulcer Cleansing Rinsed/ Irrigated with Saline -Foul Odor after Cleansing No -Bioengineered Tissue No -Bleeding Controlled with Pressure -Treatment Response Procedure Tolerated Well -Debridement - Subq, 1st 20sq cm No Pain Scale: 0-10 Numeric Is Patient Pain Free? Yes Yes - Nurse 3 - General Ulcer D/C NN Start: 09/19/22 09:22 Freq: Status: Active Protocol: Activity Type Activity Date Activity User E-sign Co-sign Detail Recorded Client Recorded Date Recorded By Document 09/19/22 10:14 [facility] [id number] 09/19/22 10:14 [facility] 09/19/22 10:14 Wound Care Center Nurse 3 #2 L rosado -Ulcer Cleansing Rinsed/ Irrigated with Saline -Foul Odor after Cleansing No -Primary Dressing Applied NonAdherent Contact Layer -Other Dressing XEROFORM/ ADAPTIC -Primary Dressing Covered/Secured with Dry Gauze & Roll Gauze, Secured with Tape -Other Covering ABD #1 L Medial LE -Ulcer Cleansing Rinsed/ Irrigated with Saline -Foul Odor after Cleansing No -Other Dressing ADAPTIC, XEROFORM -Primary Dressing Covered/Secured with Dry Gauze & Roll Gauze, Secured with Tape -Other Covering ABD Left -Compression Wrap Camron Wrap Treatment Response Procedure Tolerated Well Pain Scale: 0-10 Numeric Is Patient Pain Free? Yes WC - Visit Discharge Discharge Condition Stable Ambulatory Status Ambulatory Transportation Private Auto Accompanied by JESUS Assessment/Plan Assessment/Plan (1) Morbid obesity: CODE(S): E66.01 - Morbid (severe) obesity due to excess calories (2) Venous ulcer of left leg: CODE(S): I83.029 - Varicose veins of left lower extremity with ulcer of unspecified site; L97.929 - Non-pressure chronic ulcer of unspecified part of left lower leg with unspecified severity PLAN: Resolved continue using pumps 1 hour twice daily for continued progress Discharge from the wound center and follow-up as needed (3) Type 2 diabetes mellitus: CODE(S): E11.9 - Type 2 diabetes mellitus without complications
== END 2022-10-03 15:00 | disposition home or self-care (01) ==
LOC: WC 09:15
PROVIDERS: PCP Nurse Practitioner Family; Visit Provider Nurse Practitioner
DX: I83.028 Varicose veins of left lower extremity with ulcer other part of lower leg (principal); E11.622 Type 2 diabetes mellitus with other skin ulcer; L97.821 Non-pressure chronic ulcer of other part of left lower leg limited to breakdown of skin; I50.32 Chronic diastolic (congestive) heart failure; I13.0 Hypertensive heart and chronic kidney disease with heart failure and stage 1 through stage 4 chronic kidney disease, or unspecified chronic kidney disease; E11.22 Type 2 diabetes mellitus with diabetic chronic kidney disease; E66.01 Morbid (severe) obesity due to excess calories; Z68.43 Body mass index [BMI] 50.0-59.9, adult; N18.30 Chronic kidney disease, stage 3 unspecified; I25.10 Atherosclerotic heart disease of native coro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 pectoris; E78.5 Hyperlipidemia, unspecified; Z79.899 Other long term (current) drug therapy; Z79.01 Long term (current) use of anticoagulants
CPT/HCPCS: 11042; 11045; 99203; 99213; G0463

== ENCOUNTER → 2022-11-06 | Outpatient (CLI) | payer MEDICARE, OTHER, SELFPAY ==
[2022-11-06 12:03] LABS: AST(SGOT) 20 U/L (15-37); Alanine Aminotransfer ALT/SGPT 26 U/L (13-56); Alkaline Phosphatase 95 U/L (45-117); Bilirubin, Direct 0.13 mg/dL (0.00-0.30)
[2022-11-07 09:16] LABS: Anion Gap 6 (5-15); Chloride 110 mmol/L (98-107); Potassium 4.8 mmol/L (3.5-5.1); Sodium Level 139 mmol/L (136-145)
== END | disposition home or self-care (01) ==
LOC: MEDOUTP 11:23
PROVIDERS: PCP Nurse Practitioner Family; Referring Provider Internal Medicine Pulmonary Disease; Visit Provider Internal Medicine Pulmonary Disease
DX: I27.0 Primary pulmonary hypertension (principal); I50.32 Chronic diastolic (congestive) heart failure; R53.83 Other fatigue
CPT/HCPCS: 36591; 80051; 80076; 83880; A4216

== ENCOUNTER → 2023-03-15 | Outpatient (CLI) | payer MEDICARE, OTHER, SELFPAY ==
--- NOTE | 2023-03-15 08:45 | ECHOD_ITS ---
Reason For Study: CHF Procedure This was a 2D Doppler, Color Flow transthoracic echocardiogram. Exam performed in department. Left Ventricle Normal LV size. Left ventricular systolic function is normal. The estimated ejection fraction is 60 %. No regional wall motion abnormalities noted. Right Ventricle Normal RV size. Normal systolic function. Atria The left atrium is moderately enlarged. The right atrium is severely enlarged. Mitral Valve Normal mitral valve. Tricuspid Valve Normal tricuspid valve. Moderate (2+) tricuspid valve insufficiency. Pulmonary artery systolic pressure is 70 mmHg. Aortic Valve Peak aortic valve gradient 44 mmHg. Mean aortic valve gradient 26 mmHg. Mild aortic stenosis. Bioprosthetic aortic valve. Pulmonic Valve Normal pulmonic valve. Great Vessels Normal aortic root. The pulmonary artery is normal size. and does not collapse. Pericardium/Pleural No pericardial effusion. MMode/2D Measurements & Calculations LVIDd: 6.0 cm IVSd: 1.1 cm LVOT diam: 2.1 cm LVIDs: 3.8 cm LVPWd: 1.3 cm LVOT area: 3.5 cm2 RVDd: 4.0 cm FS: 35.7 % Ao root diam: 3.5 cm LAV(MOD-bp): 159.6 ml LVAd ap4: 26.2 cm2 LAV(MOD-bp) Indexed: 66.3 ml/m2 LVLd ap4: 7.8 cm LAV(MOD-sp2): 178.3 ml EDV(MOD-sp4): 74.4 ml LAV(MOD-sp4): 132.8 ml EDV(sp4-el): 74.6 ml LVAs ap4: 12.0 cm2 LVLs ap4: 6.0 cm ESV(MOD-sp4): 22.3 ml ESV(sp4-el): 20.1 ml EF(MOD-sp4): 70.0 % EF(sp4-el): 73.0 % SV(MOD-sp4): 52.1 ml SV(sp4-el): 54.5 ml LA A4 area: 35.0 cm2 LA dimension(2D): 5.7 cm RA A4 area: 39.5 cm2 TAPSE: 1.7 cm Time Measurements MV dec time: 0.18 sec Doppler Measurements & Calculations MV E max luke: 168.2 cm/sec Lat Peak E' Luke: 17.1 cm/sec Med Peak E' Luke: 8.2 cm/sec MV A max luke: 54.3 cm/sec E/E' lat: 9.8 E/E' med: 20.4 MV E/A: 3.1 MV V2 max: 167.1 cm/sec Ao V2 max: 333.2 cm/sec MV max P.2 mmHg MV dec slope: 961.1 cm/sec2 Ao max P.5 mmHg MV V2 mean: 93.0 cm/sec Ao V2 mean: 246.3 cm/sec MV mean P.3 mmHg Ao mean P.7 mmHg MV V2 VTI: 37.9 cm Ao V2 VTI: 72.3 cm AV (velocity ratio): 0.50 MVA(VTI): 3.3 cm2 ALONSO(I,D): 1.7 cm2 ALONSO(V,D): 1.5 cm2 LV V1 max: 148.1 cm/sec MR max luke: 487.7 cm/sec SV(LVOT): 124.3 ml LV V1 max P.8 mmHg MR max P.1 mmHg LV V1 mean P.6 mmHg MR mean luke: 430.3 cm/sec LV V1 mean: 113.1 cm/sec MR mean P.9 mmHg LV V1 VTI: 36.0 cm MR VTI: 165.4 cm PA V2 max: 176.8 cm/sec TR max luke: 409.2 cm/sec PA V2 mean: 119.1 cm/sec TR max P.0 mmHg ECHO/Echo Complete Interpretation Summary Normal LV size. Left ventricular systolic function is normal. The estimated ejection fraction is 60 %. The left atrium is moderately enlarged. The right atrium is severely enlarged. Bioprosthetic aortic valve. Pulmonary artery systolic pressure is 70 mmHg. Compared to the previous the above is essentially unchanged Ordering Physician: Lazaro Figueredo Referring Physician: Lazaro Figueredo Performed By: Kayli Palacios RCS
== END | disposition home or self-care (01) ==
LOC: CVS 08:43
PROVIDERS: PCP Nurse Practitioner Family; Referring Provider Nurse Practitioner Family; Visit Provider Nurse Practitioner Family
DX: I11.0 Hypertensive heart disease with heart failure (principal); I50.32 Chronic diastolic (congestive) heart failure; I27.29 Other secondary pulmonary hypertension; Z95.2 Presence of prosthetic heart valve
CPT/HCPCS: 93306

== ENCOUNTER 2023-04-24 09:50 | Outpatient (CLI) | payer MEDICARE, OTHER, SELFPAY ==
[2023-04-24 10:25] LABS: Anion Gap 5 (5-15); BUN 41 mg/dL (7-18); BUN/Creat Ratio 25.2 RATIO (10-20); Calcium,Total 9.2 mg/dL (8.5-10.1); Chloride 113 mmol/L (98-107); Creatinine, Serum 1.63 mg/dL (0.55-1.02); EST Glomerular Filtration Rate 32 mL/min (>60); Est Glom Filt Rate - Afr Amer 39 mL/min (>60); Glucose 109 mg/dL (74-106); Sodium Level 140 mmol/L (136-145)
== END 2023-04-24 09:51 | disposition home or self-care (01) ==
LOC: MEDOUTP 09:51
PROVIDERS: PCP Nurse Practitioner Family; Referring Provider Internal Medicine Pulmonary Disease; Visit Provider Internal Medicine Pulmonary Disease
DX: N17.9 Acute kidney failure, unspecified (principal)
CPT/HCPCS: 36591; 80048; A4216

== ENCOUNTER 2023-06-06 10:34 | Emergency (ER) | payer MEDICARE, OTHER, SELFPAY ==
[2023-06-06 10:35] VITALS: BP 169/62; PULSE 90; RESP 96; TEMP 36.9; O2SAT 97
[2023-06-06] MEDS: Ondansetron 4 MG/2 ML Vial IV (11:13)
[2023-06-06] MEDS: morphine 8 MG/ML Syringe IV (11:13)
--- NOTE | 2023-06-06 11:30 | RAD_ITS ---
EXAM: XR LUMBOSACRAL SPINE, 2 OR 3 VIEWS CLINICAL INDICATION: Injury/Pain TECHNIQUE: Frontal and lateral views of the lumbar spine and sacrum. COMPARISON: No relevant prior studies available. FINDINGS: VERTEBRAE: No acute fracture or subluxation. DISC SPACES: Disc space narrowing and prominent bony hypertrophy noted involving the upper and mid lumbar spine. Multilevel facet arthropathy. RAD/Lumbar Spine 2 or 3 Views IMPRESSION: No acute abnormality. Moderate spondylosis. Electronically Signed: Mc Dunn MD at 12:01 EDT ,
--- NOTE | 2023-06-06 12:02 | ED.VIS.BACK ---
HPI History of Present Illness Chief Complaint: Back Detail of Chief Complaint: Traumatic back pain since June 02 Informant: patient Onset/Context/Timing Onset: Days Context: Sudden Onset Chronic pain exacerbated by: No history of chronic back pain Injury: - (No history of trauma) Timing: Continuous Quality: Dull and Aching Location: Lumbar Current Severity: Severe Maximum Severity: Severe Worsened by: improves with Movement, Ambulation, Bending and Lifting Relieved by: Nothing Associated Symptoms Associated Symptoms: - (Denies paresthesia or anesthesia. Denies dragging her leg. Denies buckling of her knees.); Negative for Numbness, Tingling, Radiation to Right Leg, Radiation to Left Leg, Fever, Abdominal Pain, Dysuria, Unable to Ambulate, Unable to Transfer, Urinary Retention, Urinary Incontinence, Constipation or Fecal Incontinence Narrative Narrative: Patient is an 78-year-old woman. She has history of type 2 diabetes, essential hypertension, hyperlipidemia, chronic diastolic congestive heart failure, secondary pulmonary hypertension, aortic valve replacement, atrial fibrillation, morbid obesity, anticoagulant use, iron deficiency anemia who presents with atraumatic low back pain that she localizes in the lumbar region. She denies radicular pain. Denies bowel bladder dysfunction. Denies saddle paresthesia anesthesia. She denies fever or chills. She denies dysuria, frequency, urgency or hematuria. She has no history of renal ureterolithiasis. She denies symptoms of claudication. Movement exacerbates her pain. Nothing alleviates her pain. She was seen on Saturday and had a Toradol injection and possibly steroid injection. She states the injections did not help with her pain. Prior similar symptoms: No Recent Illness/Hospitalization: No [facility] Medical History Acute blood loss anemia (09/24/20) Anemia Anemia in chronic kidney disease (CKD) Anemia of chronic renal failure, stage 3 (moderate) Arthritis Bloody stool Chronic diastolic (congestive) heart failure Chronic GI bleeding Diverticulitis Essential (primary) hypertension Fatigue History of blood transfusion History of GI bleed History of pneumonia Hyperkalemia Hyperlipidemia Iron deficiency anemia Iron deficiency anemia due to chronic blood loss Knee pain Liver disease [facility] (current) use of anticoagulants Longstanding persistent atrial fibrillation Morbid obesity Non-ST elevation (NSTEMI) myocardial infarction (04/23/17) Nonobstructive atherosclerosis of coronary artery Nonrheumatic aortic (valve) stenosis Nonrheumatic mitral (valve) insufficiency Nonrheumatic tricuspid (valve) insufficiency Osteopenia Other secondary pulmonary hypertension Presence of IVC filter (09/2018) Sepsis secondary to UTI 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 Type 2 diabetes mellitus Home Medications cholecalciferol (vitamin D3) 50 mcg (2,000 unit) capsule 2,000 unit PO DAILY supplement 11/18/17 [History Last Taken 11/29/17 07:00] ropinirole 0.25 mg tablet 0.25 mg PO QHS restless legs 11/18/17 [History Last Taken 11/28/17 22:00] sildenafil (pulm.hypertension) 20 mg tablet 20 mg PO TID pulmonary HTN 11/18/17 [History Last Taken 11/29/17 12:00] magnesium 250 mg tablet 250 mg PO DAILY SUPPLEMENT 10/09/18 [History Last Taken Unknown] ferrous sulfate 325 mg (65 mg iron) tablet (Melissa-Time) 325 mg PO DAILY anemia 04/14/19 [History Last Taken Unknown] ascorbic acid (vitamin C) 500 mg capsule 500 mg PO DAILY supplement 05/10/20 [History Last Taken Unknown] cyanocobalamin (vitamin B-12) 2,500 mcg sublingual lozenge 2,500 mcg sublingual .QOD supplement 05/10/20 [History Last Taken Unknown] pantoprazole 40 mg tablet,delayed release 40 mg PO DAILY Acid 03/06/21 [History Last Taken Unknown] wheat dextrin 3 gram/3.5 gram oral powder packet (Benefiber Clear Sugar Free(dextrin)) 1.75 g PO TID 10/24/21 [History Last Taken Unknown] amlodipine 10 mg tablet 10 mg PO DAILY #90 tabs 06/27/22 [Rx Last Taken Unknown] amoxicillin 500 mg tablet 500 mg PO .COMPLEX atb #4 tabs 11/26/22 [Rx Last Taken Unknown] lisinopril 5 mg tablet 5 mg PO QDAY #90 tabs 03/11/23 [Rx Last Taken Unknown] treprostinil diolamine 0.125 mg tablet,extended release (Orenitram) 2.5 mg PO Q8H 04/09/23 [History Last Taken Unknown] furosemide 40 mg tablet (Lasix) 40 mg PO MOWEFR PRN edema 05/08/23 [History Last Taken Unknown] hydrocodone-acetaminophen 5-325mg 5mg-325mg 1 tab PO Q6H PRN PRN Pain 5 days #20 TABLETS 06/06/23 [Rx Last Taken Unknown] Allergy/AdvReac Type Severity Reaction Status Date / Time pravastatin AdvReac Severe severe Verified 05/08/23 11:15 muscle and joint pain Family History Mother , age 83 Uterine cancer Hypertension Father , age 81 Heart disease Diabetes CAD (coronary artery disease) Hypertension Surgical History coil embolization of colonic artery H/O aortic valve replacement (09/15/18) History of appendectomy History of hysterectomy History of left heart catheterization (LHC) (04/10/17) History of root canal procedure Status post right foot surgery Social History household members: spouse housing: house Smoking Status: Never smoker alcohol intake: never substance use type: does not use caffeine: No what type of physical activity do you participate in: none divina/anabaptist: Mennonite seatbelt use: always do you feel safe at home: Yes ROS ROS ED Constitutional Constitutional ED: Denies chills, fever(s), subjective, sweats or weight loss Eyes Eyes: Denies blurry vision, change in vision or diplopia ENT ENT ED: Denies ear pain, rhinorrhea or sore throat Cardiovascular Cardiovascular: Denies chest pain, orthopnea, palpitations, paroxysmal nocturnal dyspnea or racing heartbeat Respiratory/Chest Respiratory/Chest: Denies dyspnea, dyspnea on exertion, orthopnea, paroxysmal nocturnal dyspnea or sputum Gastrointestinal Gastrointestinal: Denies constipation, diarrhea, melena, nausea or vomiting Genitourinary Genitourinary ED: Denies dysuria, hematuria or urinary frequency Musculoskeletal Musculoskeletal: Reports back pain; Denies arthralgias, myalgias or neck pain Integumentary Denies abscess, Abrasions or rash Neurologic Neurologic: Denies headache(s), paresthesias or weakness Psychiatric Psychiatric: Denies anxiety or depression Endocrine Endocrinology: Reports cold intolerance and other Details: Does have history of hypothyroidism. ; Denies heat intolerance Hematologic/Lymphatic Hematologic/Lymphatic: Denies easy bleeding or easy bruising EXAM Physical Exam Const Vital Signs: 06/06/23 10:35 Temperature 98.4 F Temperature Source Temporal Pulse Rate 90 Respiratory Rate 96 H Blood Pressure 169/62 H Blood Pressure Mean 97 Pulse Ox 97 Oxygen Delivery Method Room Air Positive well nourished, well developed and obese Constitutional Narrative: Does appear in some discomfort. General Appearance ED: well developed Nutritional Appearance: obese HEENT Reports moist mucous membranes HEENT Narrative: Head is atraumatic and normocephalic. Ears are normal. Nares are patent. Posterior pharynx is normal. Eyes PERRL and EOMs intact bilaterally General Eye ED: Negative for pale conjunctiva or scleral icterus Neck no lymphadenopathy, supple and no JVD Resp normal respiratory effort and clear to auscultation bilaterally Cardio regular rate, regular rhythm, S1 normal heart sound, S2 normal heart sound and no murmurs GI normal to inspection, nondistended, normoactive bowel sounds, soft to palpation, non-tender, non-distended and no masses Back/Spine normal to inspection; Negative for no thoracic nor lumbar tenderness Back/Spine Narrative: Patella and ankle reflex are 1+. EHLs intact. Normal sensation over L3-S1 dermatome. Patient has pain with elevation of leg to 5 to 10 degrees bilaterally. Worse on the left. There is reproducible pain over the lower lumbar sacral region. DP and PT pulse are 1-2+ Lumbar Spine / Lower Back: ROM limited and straight leg raise negative bilaterally Extremity normal to inspection and no clubbing, cyanosis or edema Neuro oriented x3 and no sensory deficits noted Sensorium / Orientation: alert Motor Exam: strength 5/5 throughout Deep Tendon Reflexes: Rt Patellar (L4): 1+, Lt Patellar (L4): 1+, Rt Ankle (S1): 1+ and Lt Ankle (S1): 1+ Deep Tendon Reflexes Back: Rt Patellar (L4): 1+, Lt Patellar (L4): 1+, Rt Ankle (S1): 1+ and Lt Ankle (S1): 1+ Plantar Reflex: Downgoing: bilateral (No clonus at the ankles.) Skin no rashes or lesions noted and no wounds MDM MDM Lab Data Labs: X-ray there is no acute abnormality. There is degenerative changes noted. The report by radiologist was read. Differential is muscular back pain versus compression fracture versus lytic or blastic lesion to the back. For this reason x-ray was obtained. Patient was medicated with morphine x2. The fact that it is worse with any type of movement would indicate this is musculoskeletal Radiography Chest X-Ray - ED: Read by ED Physician (3 view x-ray of the LS-spine was obtained. Patient has significant degenerative changes. There is loss of height of L3. There is also asymmetry of vertebral spaces L3-L4 and L4-L5. There are no lytic or blastic lesions noted. This is independent reviewed interpreted by me at 08/20/2001.) Diagnostic Testing: Clinical Impression(s) from Imaging Studies Lumbar Spine X-Ray 06/06/23 11:30 IMPRESSION: No acute abnormality. Moderate spondylosis. Electronically Signed: Mc Dunn MD at 12:01 EDT , Treatment and Re-Evaluation Narrative: Was reassessed at 1205. She received a additional dose of morphine. Patient was reassessed at 1350. She is markedly better. Plan is to discharge home with opiate analgesia. She was not treated with NSAIDs because of her age, history of diabetes and the fact that she had a prior GI bleed. 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75 g PO TID Rx Instructions: mix into at least 4 oz water or juice before administering Orenitram 0.125 mg tablet extended release 2.5 mg PO Q8H Rx Instructions: must administer with a meal/food lisinopril 5 mg tablet 5 mg PO QDAY Qty: 90 3RF furosemide [Lasix] 40 mg tablet 40 mg PO MOWEFR PRN (Reason: edema) Rx Instructions: MWF pantoprazole 40 mg tablet,delayed release (DR/EC) 40 mg PO DAILY ropinirole 0.25 MG tablet 0.25 mg PO QHS sildenafil (pulm.hypertension) 20 MG tablet 20 mg PO TID cholecalciferol (vitamin D3) 2,000 UNIT capsule 2,000 unit PO DAILY amlodipine 10 mg tablet 10 mg PO DAILY Qty: 90 3RF amoxicillin 500 mg tablet 500 mg PO .COMPLEX Qty: 4 1RF Rx Instructions: 500 mg PO take 4 tablets one hour prior to dental procedure; Primary Care Provider: Chiquis Santana Referrals: Chiquis Santana, [facility] [Primary Care Provider] - 3-5 Days if not improving Disposition Disposition: Home, Self Care
[2023-06-06] MEDS: Morphine 4 MG/ML Syringe IV (12:14)
[2023-06-06 12:17] VITALS: BMI 49.1
[2023-06-06 14:06] VITALS: PULSE 80; RESP 24
== END 2023-06-06 14:09 | disposition home or self-care (01) ==
PROVIDERS: Emergency Provider Emergency Medicine; PCP Nurse Practitioner Family; Visit Provider Emergency Medicine
DX: M47.816 Spondylosis without myelopathy or radiculopathy, lumbar region (principal); I13.0 Hypertensive heart and chronic kidney disease with heart failure and stage 1 through stage 4 chronic kidney disease, or unspecified chronic kidney disease; I50.32 Chronic diastolic (congestive) heart failure; E11.22 Type 2 diabetes mellitus with diabetic chronic kidney disease; I48.11 Longstanding persistent atrial fibrillation; E66.01 Morbid (severe) obesity due to excess calories; N18.30 Chronic kidney disease, stage 3 unspecified; D63.1 Anemia in chronic kidney disease; E78.5 Hyperlipidemia, unspecified; I25.10 Atherosclerotic heart disease of native coro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 pectoris; I25.2 Old myocardial infarction; G89.29 Other chronic pain; Z95.4 Presence of other heart-valve replacement; Z79.01 Long term (current) use of anticoagulants; Z79.899 Other long term (current) drug therapy
CPT/HCPCS: 72100; 96374; 96375; 96376; 99284; A4216; J2405

== ENCOUNTER 2023-07-05 08:19 | Outpatient (CLI) | payer MEDICARE, OTHER, SELFPAY ==
[2023-07-05] MEDS: Ceftriaxone 2 GM in 0.9% Normal Saline (50mL MB+) 50 ML IV (08:49)
[2023-07-05 08:58] VITALS: BP 148/70; PULSE 72; RESP 16; TEMP 36.8; O2SAT 93; BMI 48.1
[2023-07-05] MEDS: Vancomycin IV 1,000 MG/200 ML BAG 200 MG IV (09:42)
[2023-07-05 11:09] VITALS: BP 151/49; PULSE 77; RESP 16; O2SAT 93
== END 2023-07-05 08:20 | disposition home or self-care (01) ==
LOC: MEDOUTP 08:20
PROVIDERS: PCP Nurse Practitioner Family; Referring Provider Internal Medicine Infectious Disease; Visit Provider Internal Medicine Infectious Disease
DX: M46.46 Discitis, unspecified, lumbar region (principal)
CPT/HCPCS: 96365; 96368; J7050; A4216; J0696

== ENCOUNTER 2023-07-06 08:26 | Outpatient (CLI) | payer MEDICARE, OTHER, SELFPAY ==
[2023-07-06] MEDS: Ceftriaxone 2 GM in 0.9% Normal Saline (50mL MB+) 50 ML IV (09:05)
[2023-07-06 09:10] VITALS: BP 148/52; PULSE 68; RESP 16; TEMP 36.8; O2SAT 95
[2023-07-06] MEDS: Vancomycin IV 1,000 MG/200 ML BAG 200 MG IV (09:48)
[2023-07-06] MEDS: 0.9% Normal Saline (250mL Bag) 250 ML 15 ML IV (09:49)
[2023-07-06] MEDS: 0.9 % NaCl (Sterile) Posiflush 10 mL IV (09:49)
[2023-07-06] MEDS: 0.9% Saline Lock 10 ML Syringe IV (11:24)
== END 2023-07-06 11:32 | disposition home or self-care (01) ==
LOC: MEDOUTP 08:31 → ICU 08:41
PROVIDERS: PCP Nurse Practitioner Family; Referring Provider Internal Medicine Infectious Disease; Visit Provider Internal Medicine Infectious Disease
DX: M46.46 Discitis, unspecified, lumbar region (principal)
CPT/HCPCS: 96365; 96368; J7050; A4216; J0696

== ENCOUNTER 2023-07-07 08:23 | Outpatient (CLI) | payer MEDICARE, OTHER, SELFPAY ==
[2023-07-07] MEDS: 0.9% Saline Lock 10 ML Syringe IV ×2 (08:30→10:37)
[2023-07-07] MEDS: 0.9% Normal Saline (250mL Bag) 250 ML 100 ML IV (08:30)
[2023-07-07] MEDS: Ceftriaxone 2 GM in 0.9% Normal Saline (50mL MB+) 50 ML IV (08:33)
[2023-07-07] MEDS: Vancomycin IV 1,000 MG/200 ML BAG 200 MG IV (09:14)
== END 2023-07-07 10:40 | disposition home or self-care (01) ==
LOC: MEDOUTP 08:24 → MS3 08:24
PROVIDERS: PCP Nurse Practitioner Family; Referring Provider Internal Medicine Infectious Disease; Visit Provider Internal Medicine Infectious Disease
DX: M46.46 Discitis, unspecified, lumbar region (principal)
CPT/HCPCS: 96365; 96367; J7050; A4216; J0696

== ENCOUNTER 2023-07-08 08:22 | Outpatient (CLI) | payer MEDICARE, OTHER, SELFPAY ==
[2023-07-08 08:41] VITALS: BP 157/58; PULSE 51; RESP 18; TEMP 36.6; O2SAT 94; BMI 48.1
[2023-07-08] MEDS: Ceftriaxone 2 GM in 0.9% Normal Saline (50mL MB+) 50 ML IV (08:48)
[2023-07-08 08:59] LABS: Erythrocyte Sedimentation Rate 40 mm/hr (0-30)
[2023-07-08 09:02] LABS: Hematocrit 28.3 % (37-47); Mean Corp Hgb Conc 31.8 g/dL (32-36); Mean Corpuscular Hgb 29.9 pg (27.0-32.0); Mean Platelet Vol. 11.9 fl (6.2-12.0); Platelet Count 241 K/mm3 (150-450); RBC Distribution Width CV 14.3 % (11.6-14.6); RBC Distribution Width SD 47.9 fl (35.1-43.9); Red Blood Count 3.01 M/mm3 (4.2-5.4); White Blood Count 4.9 K/mm3 (4.4-11.0)
[2023-07-08 09:12] LABS: ALB/GLOB Ratio 0.7 RATIO (0.9-2.4); AST(SGOT) 10 U/L (15-37); Alanine Aminotransfer ALT/SGPT 12 U/L (13-56); Albumin, Serum 2.8 g/dL (3.2-5.0); Alkaline Phosphatase 93 U/L (45-117); Anion Gap 7 (5-15); BUN 11 mg/dL (7-18); BUN/Creat Ratio 9.9 RATIO (10-20); Calcium,Total 8.6 mg/dL (8.5-10.1); Chloride 112 mmol/L (98-107); Creatinine, Serum 1.11 mg/dL (0.55-1.02); EST Glomerular Filtration Rate 50 mL/min (>60); Est Glom Filt Rate - Afr Amer 61 mL/min (>60); Estimated Creatinine Clearance 37.84 ml/min; Globulin 4.2 g/dL (2.2-4.2); Glucose 134 mg/dL (74-106); Potassium 3.6 mmol/L (3.5-5.1); Sodium Level 142 mmol/L (136-145)
[2023-07-08 09:29] LABS: Vancomycin, Trough Level 15.3 ug/mL (5.0-15.0)
[2023-07-08] MEDS: Vancomycin IV 1,000 MG/200 ML BAG 200 MG IV (09:49)
[2023-07-08 11:11] VITALS: BP 149/51; PULSE 85; RESP 16; TEMP 36.8; O2SAT 92
== END 2023-07-08 08:23 | disposition home or self-care (01) ==
LOC: MEDOUTP 08:23
PROVIDERS: PCP Nurse Practitioner Family; Referring Provider Internal Medicine Infectious Disease; Visit Provider Internal Medicine Infectious Disease
DX: M46.96 Unspecified inflammatory spondylopathy, lumbar region (principal)
CPT/HCPCS: 96365; 96367; 96368; 36591; 80053; 80202; 85027; 85652; 86140; J7050; A4216; J0696

== ENCOUNTER 2023-07-09 07:51 | Outpatient (CLI) | payer MEDICARE, OTHER, SELFPAY ==
[2023-07-09 08:01] VITALS: BP 138/46; PULSE 90; RESP 16; TEMP 36.4; O2SAT 90; BMI 48.1
[2023-07-09] MEDS: Ceftriaxone 2 GM in 0.9% Normal Saline (50mL MB+) 50 ML IV (08:08)
[2023-07-09] MEDS: Vancomycin 1,000 MG in NS 180mls Q24 200 MG IV (09:04)
[2023-07-09 10:40] VITALS: BP 89/43; PULSE 95; RESP 18; TEMP 36.6; O2SAT 92
== END 2023-07-09 07:52 | disposition home or self-care (01) ==
LOC: MEDOUTP 07:51
PROVIDERS: PCP Nurse Practitioner Family; Referring Provider Internal Medicine Infectious Disease; Visit Provider Internal Medicine Infectious Disease
DX: M46.46 Discitis, unspecified, lumbar region (principal)
CPT/HCPCS: J7050; A4216; J0696

== ENCOUNTER 2023-07-09 11:01 | Inpatient (IN) | payer MEDICARE, OTHER, SELFPAY ==
[2023-07-09] VITALS (23 sets, daily range): BP systolic 120–175; BP diastolic 45–96; PULSE 72–102; RESP 12–32; TEMP 36.5–37.2; O2SAT 75–97; BMI 46.9
--- NOTE | 2023-07-09 11:25 | CT_ITS ---
STUDY: CT ABDOMEN AND PELVIS WITH CONTRAST REASON FOR EXAM: Female, 78 years old. Rigid abdomen RADIATION DOSAGE (If Supplied By Facility): CTDIvol = ( 14.92 ) mGy, DLP = ( 1373.44 ) mGycm TECHNIQUE: Transaxial images were obtained from the dome of the diaphragm to the symphysis pubis without oral contrast. IV 100mL Isovue-300 was administered. Sagittal and coronal images were reconstructed. Individualized dose optimization techniques were used for this CT. COMPARISON: None. FINDINGS: Lung bases show interstitial edema with free-flowing left pleural effusion and bibasilar atelectasis. There is cardiomegaly with a aortic valve noted. Liver shows nodular borders suggesting underlying cirrhosis. No discrete lesion is identified. There is hepatomegaly. There is gallbladder wall enhancement with multiple gallstones and pericholecystic fluid system with cholecystitis. There is no significant biliary dilatation or evidence of a stone within the common bile duct. Surgical consultation recommended Normal spleen. The pancreas is poorly defined with some peripancreatic inflammation and fluid around the pancreatic head. There could be superimposed acute pancreatitis as well. There is no phlegmon identified. Normal bilateral adrenal glands. No obstructive uropathy or suspicious solid renal lesion. Stomach is unremarkable though there does appear to be surgical clips at the GE junction. Normal small intestine. Normal colon. There is non-visualization of the appendix. Normal abdominal aorta. Normal inferior vena cava. Normal retroperitoneum. Bladder contains a Govea catheter There is induration of the cutaneous fat suggests anasarca or poor nutritional status. There are diffuse degenerative changes of the visualized lumbar spine, and pelvis. CT/Abdomen/Pelvis W IV Cont ONLY IMPRESSION: Multiple gallstones are noted with gallbladder wall thickening and enhancement with pericholecystic fluid suggesting cholecystitis. Surgical consultation recommended The pancreas is poorly defined with peripancreatic inflammatory stranding and fluid around the pancreatic head, superimposed pancreatitis is suspected as well. Chronic interstitial changes in the lung bases with left pleural effusion, interstitial edema, and bibasilar atelectasis Cirrhotic liver without a discrete lesion No free intraperitoneal fluid or air, or suspicious adenopathy Degenerative bony changes Nonspecific induration of the subcutaneous fat Electronically Signed: Evaristo Guillen MD at 13:13 EST Reading Location ID and State: [facility] / [place] , Service support ,
--- NOTE | 2023-07-09 11:31 | ED.VIS.GI ---
HPI HPI - GI History of Present Illness Chief Complaint: Abd Pain Detail of Chief Complaint: Abrupt onset of predominantly right-sided abdominal pain with dry heaves Informant: patient, spouse/S.O. and other (Patient presents from infusion center.) Abdominal Pain/Flank Pain Onset: Today and Hours Context: Sudden Onset Timing: Continuous Quality: Aching Location: Diffuse (Worse on the right side.) Current Severity: Moderate Maximum Severity: Severe Worsened by: Movement Relieved by: Nothing Nausea/Vomiting/Emesis GI Symptom: Positive for Nausea and - (Dry heaves.) Onset: Hours Diarrhea/Melena/Hematochezia GI Symptom: Negative for Diarrhea, Melena or Hematochezia Associated Symptoms Associated Symptoms: Negative for Dysuria, Frequency, Hematuria or Urgency Narrative Narrative: It is an 78-year-old woman with 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 She received her dose of vancomycin Rocephin prior to arrival. She presents from the infusion center. Of note her blood pressure at the infusion center was 89/43. She was sent to the emergency room for evaluation. She denies fever or chills. She does report nausea with dry heaves. She states she had 2 bowel movements this morning. The bowel movements were not watery. She denied blood or mucus. She denies dysuria, frequency, urgency or hematuria. She is status post appendectomy. She denies intolerance to greasy or fried foods. She presently denies back pain. There is no history of trauma. Prior similar symptoms: No Recent Illness/Hospitalization: Yes (Discitis.) [facility] Medical History Acute blood loss anemia (09/24/20) Anemia Anemia in chronic kidney disease (CKD) Anemia of chronic renal failure, stage 3 (moderate) Arthritis Bloody stool Chronic diastolic (congestive) heart failure Chronic GI bleeding Diverticulitis Essential (primary) hypertension Fatigue History of blood transfusion History of GI bleed History of pneumonia Hyperkalemia Hyperlipidemia Iron deficiency anemia Iron deficiency anemia due to chronic blood loss Knee pain Liver disease snf (current) use of anticoagulants Longstanding persistent atrial fibrillation Morbid obesity Non-ST elevation (NSTEMI) myocardial infarction (12/09/16) Nonobstructive atherosclerosis of coronary artery Nonrheumatic aortic (valve) stenosis Nonrheumatic mitral (valve) insufficiency Nonrheumatic tricuspid (valve) insufficiency Osteopenia Other secondary pulmonary hypertension Presence of IVC filter (09/2018) Sepsis secondary to UTI 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 Type 2 diabetes mellitus Home Medications ropinirole 0.25 mg tablet 0.25 mg PO QHS restless legs 11/18/17 [History Last Taken 11/28/17 22:00] sildenafil (pulm.hypertension) 20 mg tablet 20 mg PO TID pulmonary HTN 11/18/17 [History Last Taken 11/29/17 12:00] magnesium 250 mg tablet 250 mg PO DAILY SUPPLEMENT 10/09/18 [History Last Taken Unknown] ferrous sulfate 325 mg (65 mg iron) tablet (Melissa-Time) 325 mg PO DAILY anemia 04/14/19 [History Last Taken Unknown] ascorbic acid (vitamin C) 500 mg capsule 500 mg PO DAILY supplement 05/10/20 [History Last Taken Unknown] cyanocobalamin (vitamin B-12) 2,500 mcg sublingual lozenge 2,500 mcg sublingual .QOD supplement 05/10/20 [History Last Taken Unknown] pantoprazole 40 mg tablet,delayed release 40 mg PO DAILY Acid 03/06/21 [History Last Taken Unknown] wheat dextrin 3 gram/3.5 gram oral powder packet (Benefiber Clear Sugar Free(dextrin)) 1.75 g PO TID 10/24/21 [History Last Taken Unknown] amlodipine 10 mg tablet 10 mg PO DAILY #90 tabs 06/27/22 [Rx Last Taken Unknown] treprostinil diolamine 0.125 mg tablet,extended release (Orenitram) 2.5 mg PO Q8H 04/09/23 [History Last Taken Unknown] hydrocodone-acetaminophen 5-325mg 5mg-325mg 1 tab PO Q6H PRN PRN Pain 5 days #20 TABLETS 06/06/23 [Rx Last Taken Unknown] aspirin 81 mg tablet,delayed release (Adult Aspirin Regimen) 81 mg PO DAILY 06/27/23 [History Last Taken Unknown] treprostinil diolamine 5 mg tablet, extended release (Orenitram) 5 mg PO TID 07/05/23 [History Last Taken Unknown] Allergy/AdvReac Type Severity Reaction Status Date / Time pravastatin AdvReac Severe severe Verified 07/09/23 11:02 muscle and joint pain Family History Mother , age 83 Uterine cancer Hypertension Father , age 81 Heart disease Diabetes CAD (coronary artery disease) Hypertension Surgical History coil embolization of colonic artery H/O aortic valve replacement (09/15/18) History of appendectomy History of hysterectomy History of left heart catheterization (LHC) (04/10/17) History of root canal procedure Status post right foot surgery Social History household members: spouse housing: house Smoking Status: Never smoker alcohol intake: never substance use type: does not use caffeine: No what type of physical activity do you participate in: none divina/muslim: Mennonite seatbelt use: always do you feel safe at home: Yes ROS ROS ED Constitutional Constitutional ED: Reports chills and sweats; Denies weight loss ENT ENT ED: Denies ear pain, rhinorrhea or sore throat Cardiovascular Cardiovascular: Denies chest pain, orthopnea, palpitations, paroxysmal nocturnal dyspnea or racing heartbeat Respiratory/Chest Respiratory/Chest: Denies cough, dyspnea, dyspnea on exertion, orthopnea or paroxysmal nocturnal dyspnea Gastrointestinal Gastrointestinal: Reports abdominal pain, nausea and other Details: Dry heaves x2 ; Denies constipation, diarrhea or melena Genitourinary Genitourinary ED: Denies dysuria, hematuria or urinary frequency Musculoskeletal Musculoskeletal: Denies arthralgias, back pain, myalgias or neck pain Integumentary Denies rash Neurologic Neurologic: Denies headache(s) or paresthesias Psychiatric Psychiatric: Denies anxiety or depression Endocrine Endocrinology: Denies polydipsia or polyuria Hematologic/Lymphatic Hematologic/Lymphatic: Denies easy bleeding or easy bruising EXAM Physical Exam Const Vital Signs: 07/09/23 11:02 07/09/23 11:49 07/09/23 11:54 Temperature 99 F Temperature Source Temporal Pulse Rate 77 80 72 Respiratory Rate 22 H 17 24 H Blood Pressure 120/50 L 153/45 H 144/51 H Blood Pressure Mean 73 81 82 Pulse Ox 89 75 Oxygen Delivery Method Room Air Room Air Nasal Cannula Oxygen Flow Rate (L/min) 4 07/09/23 13:00 07/09/23 13:40 07/09/23 13:46 Temperature 99 F Temperature Source Temporal Pulse Rate 85 87 81 Respiratory Rate 30 H 32 H 32 H Blood Pressure 158/68 H 164/57 H 156/55 H Blood Pressure Mean 98 92 88 Pulse Ox 97 97 97 Oxygen Delivery Method Nasal Cannula Nasal Cannula Oxygen Flow Rate (L/min) 4 5 Positive well nourished, well developed and obese Constitutional Narrative: Appears uncomfortable. She is moaning. Abdomen is distended. She appears pale. General Appearance ED: well developed and pallor Nutritional Appearance: obese HEENT Reports TM's clear and dry mucous membranes normocephalic and atraumatic Tympanic Membrane ED: Yes TM's clear Mouth ED: Yes dry mucous membranes Mouth: dry mucous membranes Eyes PERRL and EOMs intact bilaterally General Eye ED: Negative for pale conjunctiva or scleral icterus Neck no lymphadenopathy, supple and no JVD Resp normal respiratory effort and clear to auscultation bilaterally Cardio regular rate, regular rhythm, S1 normal heart sound and S2 normal heart sound; Negative for no murmurs GI no masses; Negative for non-tender or non-distended Inspection: abdominal distention Auscultation: hypoactive bowel sounds Palpation: tender LLQ, RLQ, LUQ and RUQ, guarding RLQ and RUQ and rebound tenderness present diffuse; Negative for hepatomegaly or splenomegaly Back/Spine no CVA tenderness Cervical Spine: Negative for cervical spine tenderness Thoracic Spine / Upper Back: Negative for thoracic spinal tenderness Lumbar Spine / Lower Back: Negative for lumbar spinal tenderness Extremity full ROM Neuro CN's II-XII intact bilaterally and moves all extremities Sensorium / Orientation: alert Psych mental status grossly normal and thought process normal Skin no wounds General Skin Exam: pallor; Negative for jaundice Lesions: no lesions MDM MDM MDM Narrative Medical decision making narrative: Differential diagnosis would include Katarzyna lithiasis with cholecystitis, biliary colic, gallstone pancreatitis, pneumoperitoneum due to perforated viscus, ischemic bowel. CT of the abdomen pelvis with IV contrast was ordered. Patient had a creatinine yesterday which was 1.11 with an estimated GFR of 50. Since clinically she appears dehydrated 1 L of normal saline was ordered. She was medicated with Zofran for her nausea and morphine for her pain. Blood work included a CBC which would evaluate white count differential as well as H&H and she has a history of iron deficiency anemia and appears pale. Comprehensive metabolic panel to assess liver enzymes and a lipase was ordered to evaluate for possible pancreatitis. Patient was made NPO. Govea was placed for accurate I's and O's. Prior medical history indicates patient is on anticoagulant. Review of med list does not reveal any anticoagulant. She is on aspirin 81 mg daily. Lab Data Attestation: I reviewed the patient's lab results. Lab results narrative: White count is upper end of normal. H&H is 9.3 and 29.8 with normal indices. There is a shift with 80% segs. There is no bands. Competence of metabolic panel is marked for slight elevation AST of 125 with a normal ALT. Alkaline phosphatase is slightly elevated 151. Lipase is greater than 5000. Creatinine is 1.18 with a GFR of 47. Labs: Laboratory Results - last 24 hr 07/09/23 07/09/23 07/09/23 11:41 12:51 13:20 WBC 10.4 RBC 3.12 L Hgb 9.3 L Hct 29.8 L MCV 95.5 MCH 29.8 MCHC 31.2 L RDW Std Deviation 50.2 H RDW Coeff of Fariba 14.4 Plt Count 258 MPV 10.9 Immature Gran % (Auto) 0.500 Neut % (Auto) 88.3 H Lymph % (Auto) 4.9 L Stephens % (Auto) 5.1 Eos % (Auto) 1.0 Baso % (Auto) 0.2 Absolute Neuts (auto) 9.2 H Absolute Lymphs (auto) 0.51 L Nucleated RBC % 0 Differential Comment COMMENT Sodium 142 Potassium 3.5 Chloride 113 H Carbon Dioxide 23.0 Anion Gap 6 BUN 14 Creatinine 1.18 H Est GFR (MDRD) Af Amer 57 L Est GFR (MDRD) Non-Af 47 L BUN/Creatinine Ratio 11.9 Glucose 158 H Lactic Acid 0.8 Calcium 9.0 Total Bilirubin 0.50 AST 125 H ALT 55 Alkaline Phosphatase 151 H Lactate Dehydrogenase 322 H Total Protein 7.1 Albumin 2.9 L Globulin 4.2 Albumin/Globulin Ratio 0.7 L Lipase > 5000 H Urine Color Yellow Urine Clarity Cloudy Urine pH 5.0 Ur Specific Harwood 1.020 Urine Protein 500 H Urine Glucose (UA) Normal Urine Ketones 5 H Urine Occult Blood Negative Urine Nitrite Negative Urine Bilirubin Negative Urine Urobilinogen 1 H Ur Leukocyte Esterase 25 H Urine RBC 0 SEEN Urine WBC 5-10 SEEN Ur Squamous Epith Cells 0-5 SEEN Amorphous Sediment 2+ Urine Bacteria 0 SEEN Fine Granular Casts 10-25 SEEN Urine Mucus 0 SEEN ABG Data Attestation: I personally reviewed and interpreted this ABG as follows: Interpretation: ABG reveals a significant AA gradient. PCO2 is normal with patient hyperventilating. This is concerning. ABG results: ABG 07/09/23 13:26 Specimen Type ART Sample Site L Radial pH 7.39 Bicarbonate Actual 20.4 L Total CO2 21 Base Excess -5 L O2 Saturation 92 L O2 % 6.0 ABG pCO2 33.7 L ABG pO2 64 L O2 Delivery Device Not entered Vent Mode Not entered Radiography Diagnostic Testing: Clinical Impression(s) from Imaging Studies Abdomen/Pelvis CT 07/09/23 11:25 IMPRESSION: Multiple gallstones are noted with gallbladder wall thickening and enhancement with pericholecystic fluid suggesting cholecystitis. Surgical consultation recommended The pancreas is poorly defined with peripancreatic inflammatory stranding and fluid around the pancreatic head, superimposed pancreatitis is suspected as well. Chronic interstitial changes in the lung bases with left pleural effusion, interstitial edema, and bibasilar atelectasis Cirrhotic liver without a discrete lesion No free intraperitoneal fluid or air, or suspicious adenopathy Degenerative bony changes Nonspecific induration of the subcutaneous fat Electronically Signed: Evaristo Guillen MD at 13:13 EST Reading Location ID and State: [facility] / [place] , Service support , EKG Initial EKG: Attestation: I personally reviewed and interpreted this EKG as follows: Interpretation: Atrial Fibrillation (Rate is 78. There is decreased anterior force. QRS duration 70 ms. QT duration 302 ms. There is no ossific ST-T wave changes noted and there is also artifact due to her breathing. There is no obvious is acute ischemic changes.) Management Discussion w/another healthcare provider: Hospitalist, Show Card Letterer (Mercedes but it was in the emergency room and he was made aware of patient. He would like to be contacted after radiology read of the CT. He is presently seeing patient.), Radiologist and Other (Patient is under the care of infectious disease and disease was contacted since antibiotics will need to be changed.) Treatment and Re-Evaluation :: The hospitalist was made aware of the patient. Plan is admit to ICU, Dr. Vannessa Justin. Dr. Madrid was aware of the radiology read of the CAT scan. She was reassessed at 1356. Her breathing has improved. Her saturation is 95% on Venturi mask. At this point it is my professional opinion she does not need to be intubated. Critical Care Time Critical Care Time: Yes Critical care time (excluding procedures): 30-74 minutes (32), Including time spent: (History, physical, documentation, independent interpretation of laboratory results and review of CT. Patient's most recent vitals remarkable for hypoxia obtain ABG to assess acid-base status.), Discussing w/Patient &/or Family/Artist Relationship Manager and Discussing w/Consultants (Dr. Peacock, Dr. Benitez, radiologist and hospitalist) Discharge Plan Dx/Rx/DC Orders Clinical Impression: Acute gallstone pancreatitis, Essential (primary) hypertension, Hyperlipidemia, Type 2 diabetes mellitus, Chronic diastolic (congestive) heart failure, Cholecystitis with cholelithiasis, Acute hypoxemic respiratory failure, Pleural effusion on left Disposition Disposition: Acute Care Hospital [facility]
[2023-07-09] MEDS: Ondansetron 4 MG/2 ML Vial IV (11:44)
[2023-07-09] MEDS: Morphine 4 MG/ML Syringe IV ×2 (11:45→12:05)
[2023-07-09 11:55] LABS: Absolute Lymphocyte Count 0.51 X10^3/uL (0.83-4.51); Absolute Neutrophil Count 9.2 X10^3/uL (2.0-7.7); Basophil# 0.02 X10^3/uL; Basophil% 0.2 % (0-1); Hematocrit 29.8 % (37-47); Hemoglobin 9.3 g/dL (12.0-15.0); Lymphocyte # 0.51 X10^3/ul (0.83-4.51); Lymphocyte % 4.9 % (19-41); Mean Corp Hgb Conc 31.2 g/dL (32-36); Mean Corpuscular Hgb 29.8 pg (27.0-32.0); Mean Corpuscular Volume 95.5 fL (81-99); Mean Platelet Vol. 10.9 fl (6.2-12.0); Monocyte# 0.53 X10^3/uL; Monocyte% 5.1 % (0-10); NRBC Flagged by Analyzer 0 % (0-5); Neutrophil # 9.23 X10^3/uL (2.7-7.7); Neutrophil % 88.3 % (47-70); POSITIVE DIFFERENTIAL YES; Platelet Count 258 K/mm3 (150-450); RBC Distribution Width CV 14.4 % (11.6-14.6); RBC Distribution Width SD 50.2 fl (35.1-43.9); Red Blood Count 3.12 M/mm3 (4.2-5.4); White Blood Count 10.4 K/mm3 (4.4-11.0)
[2023-07-09 11:56] LABS: Differential Indicated SCAN CRITERIA MET
[2023-07-09 12:14] LABS: Lactic Acid 0.8 mmol/L (0.4-1.9)
[2023-07-09 12:42] LABS: ALB/GLOB Ratio 0.7 RATIO (0.9-2.4); AST(SGOT) 125 U/L (15-37); Alanine Aminotransfer ALT/SGPT 55 U/L (13-56); Albumin, Serum 2.9 g/dL (3.2-5.0); Alkaline Phosphatase 151 U/L (45-117); Anion Gap 6 (5-15); BUN 14 mg/dL (7-18); BUN/Creat Ratio 11.9 RATIO (10-20); Chloride 113 mmol/L (98-107); Creatinine, Serum 1.18 mg/dL (0.55-1.02); EST Glomerular Filtration Rate 47 mL/min (>60); Est Glom Filt Rate - Afr Amer 57 mL/min (>60); Globulin 4.2 g/dL (2.2-4.2); Glucose 158 mg/dL (74-106); Lipase > 5000 U/L (13-75); Potassium 3.5 mmol/L (3.5-5.1); Protein, Total 7.1 g/dL (6.4-8.2); Sodium Level 142 mmol/L (136-145)
[2023-07-09 12:55] LABS: Bacteria 0 SEEN /hpf (None Seen); Mucous, Urine 0 SEEN /hpf (<or=2+); Red Blood Cells-Urine 0 SEEN /hpf (0-5)
[2023-07-09] MEDS: HYDROmorphone 1 MG/ML Syringe IV (13:00)
[2023-07-09 13:13] LABS: Color, Urine Yellow (Yellow); Glucose, Dipstick Normal (Normal); Ketone-Dipstick 5 mg/dl (Negative); Leukocyte Esterase-Dipstick 25 /ul (Negative); Nitrite-Dipstick Negative (Negative); Occult Blood-Urine Negative /ul (Negative); Protein-Dipstick 500 mg/dl (Negative); Urine Bilirubin Dipstick Negative (Negative); Urine Clarity Cloudy (Clear); Urine Urobilinogen 1 mg/dl (Normal)
[2023-07-09 13:20] LABS: Amorphous Sediment 2+; Fine Granular Cast- Urine 10-25 SEEN /lpf (0-5); Squamous Epithelial Cells - UA 0-5 SEEN /hpf (5-10)
[2023-07-09 13:21] LABS: White Blood Cells 5-10 SEEN /hpf (0-5)
[2023-07-09 13:29] LABS: Base Excess -5 mmol/L (-2 to +2); Bicarbonate 20.4 mmol/L (22-26); Blood Gas Specimen Type ART; Mode Not entered; O2 Delivery Device Not entered; PO2 64 mmHG (75-100); SITE L Radial; SO2 92 % (95-99); Total Carbon Dioxide 21 mmol/L; pCO2 33.7 mmHg (35-45); pH 7.39 (7.35-7.45)
[2023-07-09] MEDS: Piperacil/Tazobactam 4.5 GM in 0.9% Normal Saline (100mL MB+) 100 ML IV (13:32)
--- NOTE | 2023-07-09 13:39 | CON.PCM.SX_ITS ---
Assessment & Plan Assessment/Plan (1) Acute gallstone pancreatitis: PLAN: The patient had right upper quadrant pain and presented to the emergency room. CT revealed inflammation around the gallbladder and the pancreas. Lipase shows over 5000. LFTs were very mildly elevated. Patient likely has gallstone pancreatitis. Seems to be severe. Patient also has a lot of inflammation around the gallbladder but the gallbladder wall itself does not appear to be too thickened and is not distended indicating that it is likely not obstructed. The react chin around the gallbladder may be due to the pancreatitis. I discussed with the hospitalist team and they will admit her for management of her acute pancreatitis. Recheck LFTs in the morning and continue n.p.o. and IV fluids. I discussed performing a laparoscopic cholecystectomy after the pancreatitis has resolved. Bo Madrid MD Pager: [facility] [address] [place] [address], [address] [place] [phone] Office: HPI Consult Data Date of Consult: 07/09/23 HPI Narrative HPI Narrative: KAMI ROLLE, is a 78 F who presents with abdominal pain. She was receiving her antibiotic infusion and she started having abdominal pain. She reports the pain started in the right upper quadrant. She is also pain in the epigastric region. She denies nausea or vomiting. She has not had any fevers or chills. [facility] Medical History Acute blood loss anemia (09/24/20) Anemia Anemia in chronic kidney disease (CKD) Anemia of chronic renal failure, stage 3 (moderate) Arthritis Bloody stool Chronic diastolic (congestive) heart failure Chronic GI bleeding Diverticulitis Essential (primary) hypertension Fatigue History of blood transfusion History of GI bleed History of pneumonia Hyperkalemia Hyperlipidemia Iron deficiency anemia Iron deficiency anemia due to chronic blood loss Knee pain Liver disease skilled nursing (current) use of anticoagulants Longstanding persistent atrial fibrillation Morbid obesity Non-ST elevation (NSTEMI) myocardial infarction (12/09/16) Nonobstructive atherosclerosis of coronary artery Nonrheumatic aortic (valve) stenosis Nonrheumatic mitral (valve) insufficiency Nonrheumatic tricuspid (valve) insufficiency Osteopenia Other secondary pulmonary hypertension Presence of IVC filter (09/2018) Sepsis secondary to UTI 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 Type 2 diabetes mellitus Home Medications ropinirole 0.25 mg tablet 0.25 mg PO QHS restless legs 11/18/17 [History Last Taken 11/28/17 22:00] sildenafil (pulm.hypertension) 20 mg tablet 20 mg PO TID pulmonary HTN 11/18/17 [History Last Taken 11/29/17 12:00] magnesium 250 mg tablet 250 mg PO DAILY SUPPLEMENT 10/09/18 [History Last Taken Unknown] ferrous sulfate 325 mg (65 mg iron) tablet (Melissa-Time) 325 mg PO DAILY anemia 04/14/19 [History Last Taken Unknown] ascorbic acid (vitamin C) 500 mg capsule 500 mg PO DAILY supplement 05/10/20 [ History Last Taken Unknown] cyanocobalamin (vitamin B-12) 2,500 mcg sublingual lozenge 2,500 mcg sublingual .QOD supplement 05/10/20 [History Last Taken Unknown] pantoprazole 40 mg tablet,delayed release 40 mg PO DAILY Acid 03/06/21 [History Last Taken Unknown] wheat dextrin 3 gram/3.5 gram oral powder packet (Benefiber Clear Sugar Free(dextrin)) 1.75 g PO TID 10/24/21 [History Last Taken Unknown] amlodipine 10 mg tablet 10 mg PO DAILY #90 tabs 06/27/22 [Rx Last Taken Unknown] treprostinil diolamine 0.125 mg tablet,extended release (Orenitram) 2.5 mg PO Q8H 04/09/23 [History Last Taken Unknown] hydrocodone-acetaminophen 5-325mg 5mg-325mg 1 tab PO Q6H PRN PRN Pain 5 days #20 TABLETS 06/06/23 [Rx Last Taken Unknown] aspirin 81 mg tablet,delayed release (Adult Aspirin Regimen) 81 mg PO DAILY 06/27/23 [History Last Taken Unknown] treprostinil diolamine 5 mg tablet, extended release (Orenitram) 5 mg PO TID 07/05/23 [History Last Taken Unknown] Allergy/AdvReac Type Severity Reaction Status Date / Time pravastatin AdvReac Severe severe Verified 07/09/23 11:02 muscle and joint pain Family History Mother , age 83 Uterine cancer Hypertension Father , age 81 Heart disease Diabetes CAD (coronary artery disease) Hypertension Surgical History coil embolization of colonic artery H/O aortic valve replacement (09/15/18) History of appendectomy History of hysterectomy History of left heart catheterization (LHC) (04/10/17) History of root canal procedure Status post right foot surgery Social History household members: spouse housing: house Smoking Status: Never smoker alcohol intake: never substance use type: does not use caffeine: No what type of physical activity do you participate in: none divina/zoroastrianism: Mennonite seatbelt use: always do you feel safe at home: Yes ROS Constitutional Constitutional: Denies chills, fatigue or fever(s) Eyes Eyes: Denies blurry vision ENT HEENT: Denies abnormal hearing Cardiovascular Cardiovascular: Denies chest pain Respiratory/Chest Respiratory/Chest: Reports dyspnea; Denies cough Gastrointestinal Gastrointestinal: Reports abdominal pain; Denies nausea or vomiting Musculoskeletal Musculoskeletal: Denies abnormal gait Integumentary Integumentary: Denies jaundice Neurologic Neurologic: Denies dizziness Physical Exam Const alert and oriented x3 HEENT normocephalic Chest inspection of chest normal Resp Resp Narrative: Short of breath Cardio Rate: regular rate Rhythm: regular rhythm GI soft to palpation Palpation: tender epigastric, RLQ and RUQ Lab / Micro Data 07/09/23 11:41 07/09/23 11:41 Labs: Laboratory Results - last 24 hr 07/09/23 11:41: WBC 10.4, RBC 3.12 L, Hgb 9.3 L, Hct 29.8 L, MCV 95.5, MCH 29.8, MCHC 31.2 L, RDW Std Deviation 50.2 H, RDW Coeff of Fariba 14.4, Plt Count 258, MPV 10.9, Immature Gran % (Auto) 0.500, Neut % (Auto) 88.3 H, Lymph % (Auto) 4.9 L, Randall % (Auto) 5.1, Eos % (Auto) 1.0, Baso % (Auto) 0.2, Absolute Neuts (auto) 9.2 H, Absolute Lymphs (auto) 0.51 L, Nucleated RBC % 0, Differential Comment COMMENT, Sodium 142, Potassium 3.5, Chloride 113 H, Carbon Dioxide 23.0, Anion Gap 6, BUN 14, Creatinine 1.18 H, Est GFR (MDRD) Af Amer 57 L, Est GFR (MDRD) Non-Af 47 L, BUN/Creatinine Ratio 11.9, Glucose 158 H, Lactic Acid 0.8, Calcium 9.0, Total Bilirubin 0.50, AST 125 H, ALT 55, Alkaline Phosphatase 151 H, Total Protein 7.1, Albumin 2.9 L, Globulin 4.2, Albumin/Globulin Ratio 0.7 L, Lipase > 5000 H 07/09/23 12:51: Urine Color Yellow, Urine Clarity Cloudy, Urine pH 5.0, Ur Specific Heber 1.020, Urine Protein 500 H, Urine Glucose (UA) Normal, Urine Ketones 5 H, Urine Occult Blood Negative, Urine Nitrite Negative, Urine Bilirubin Negative, Urine Urobilinogen 1 H, Ur Leukocyte Esterase 25 H, Urine RBC 0 SEEN, Urine WBC 5-10 SEEN, Ur Squamous Epith Cells 0-5 SEEN, Amorphous Sediment 2+, Urine Bacteria 0 SEEN, Fine Granular Casts 10-25 SEEN, Urine Mucus 0 SEEN ABG Data ABG results: ABG 07/09/23 13:26 Specimen Type ART Sample Site L Radial pH 7.39 Bicarbonate Actual 20.4 L Total CO2 21 Base Excess -5 L O2 Saturation 92 L O2 % 6.0 ABG pCO2 33.7 L ABG pO2 64 L O2 Delivery Device Not entered Vent Mode Not entered Imagaing Radiology Impression Abdomen/Pelvis CT 07/09/23 11:25 IMPRESSION: Multiple gallstones are noted with gallbladder wall thickening and enhancement with pericholecystic fluid suggesting cholecystitis. Surgical consultation recommended The pancreas is poorly defined with peripancreatic inflammatory stranding and fluid around the pancreatic head, superimposed pancreatitis is suspected as well. Chronic interstitial changes in the lung bases with left pleural effusion, interstitial edema, and bibasilar atelectasis Cirrhotic liver without a discrete lesion No free intraperitoneal fluid or air, or suspicious adenopathy Degenerative bony changes Nonspecific induration of the subcutaneous fat Electronically Signed: Evaristo Guillen MD at 13:13 EST ,
[2023-07-09 13:40] LABS: LDH 322 U/L (84-246)
[2023-07-09] MEDS: HYDROmorphone 0.5 MG/0.5 ML SYRINGE IV (14:06)
--- NOTE | 2023-07-09 14:54 | PCM.HP.STD ---
HPI - General General Date of Admission: 07/09/23 Date of Service: 07/09/23 Chief Complaint: Abdominal pain HPI Narrative KAMI ROLLE, is a 78-year-old female history of CKD stage III, hx recurrent GIBs, hypertension, chronic diastolic heart failure, A-fib not on AC d/t GIBs, type 2 diabetes mellitus, recent discitis on Vanc and Rocephin at the infusion center who presented to [facility] 07/09/2023 from the infusion center due to right-sided abdominal pain with dry heaves. She received her doses of vancomycin and Rocephin prior to arrival, blood pressure at the infusion center was 89/43 when she was sent to ED for evaluation. In ED she was noted to be normotensive and had AST 125 with normal ALT and alk phos slightly elevated 151 but a lipase greater than 5000. She had CT in ED which demonstrated multiple gallstones with gallbladder wall thickening and enhancement with pericholecystic fluid suggesting cholecystitis as well as peripancreatic inflammatory stranding and fluid around the pancreatic head concerning for superimposed pancreatitis as well as a left pleural effusion. Surgeon was contacted in the ED and concerned that this was primarily pancreatic in nature and not a primary cholecystitis and recommended treating pancreatitis and if liver function/bili worsens may need Katarzyna tube and that they will follow along. In ED patient received a liter of IV fluids, Zosyn, pain control. O2 sats worsened and pt placed on 6L NC, ABG obtained which showed PO2 of 64 with an O2 sat of 92% and PCO2 33.7 and she was transitioned to a venti mask. Hospitalist contacted for admission. Patient seen in ED with family member at bedside. She endorses that last month she was hospitalized for discitis at [facility] for two weeks then [facility] for 16 days then home and has been having her vancomycin and rocephin at the infusion center and has been doing fairly well until earlier today when she developed right-sided abdominal pain and cramping and nausea and was brought to the ED. She reports some chronic shortness of breath but since her pain started she has had some increased shortness of breath. Pain has been helped with the morphine but it does wear off and then the pain becomes significant again. She denies any cough, any recent fevers and chills, has some bilateral ankle swelling which is not new. Reports some loose stools but said that this is chronic in nature since she has been on her medicine for pulmonary hypertension and nothing is changed, still urinating well. Denies any other acute complaints. [facility] Medical History Acute blood loss anemia (09/24/20) Anemia Anemia in chronic kidney disease (CKD) Anemia of chronic renal failure, stage 3 (moderate) Arthritis Bloody stool Chronic diastolic (congestive) heart failure Chronic GI bleeding Diverticulitis Essential (primary) hypertension Fatigue History of blood transfusion History of GI bleed History of pneumonia Hyperkalemia Hyperlipidemia Iron deficiency anemia Iron deficiency anemia due to chronic blood loss Knee pain Liver disease watermaster (current) use of anticoagulants Longstanding persistent atrial fibrillation Morbid obesity Non-ST elevation (NSTEMI) myocardial infarction (12/09/16) Nonobstructive atherosclerosis of coronary artery Nonrheumatic aortic (valve) stenosis Nonrheumatic mitral (valve) insufficiency Nonrheumatic tricuspid (valve) insufficiency Osteopenia Other secondary pulmonary hypertension Presence of IVC filter (09/2018) Sepsis secondary to UTI 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 Type 2 diabetes mellitus Home Medications ropinirole 0.25 mg tablet 0.25 mg PO QHS RESTLESS LEGS 11/18/17 [History Last Taken 07/08/23] sildenafil (pulm.hypertension) 20 mg tablet 20 mg PO TID PULMONARY HTN 11/18/17 [History Last Taken 07/09/23] magnesium 250 mg tablet 250 mg PO DAILY SUPPLEMENT 10/09/18 [History Last Taken 07/09/23] ferrous sulfate 325 mg (65 mg iron) tablet (Melissa-Time) 325 mg PO BID SUPPLEMENT 04/14/19 [History Last Taken 07/09/23] ascorbic acid (vitamin C) 500 mg capsule 500 mg PO DAILY SUPPLEMENT 05/10/20 [History Last Taken 07/09/23] cyanocobalamin (vitamin B-12) 2,500 mcg sublingual lozenge 2,500 mcg sublingual QODAY SUPPLEMENT 05/10/20 [History Last Taken 07/09/23] pantoprazole 40 mg tablet,delayed release 40 mg PO DAILY ACID REFLUX 03/06/21 [History Last Taken 07/08/23] amlodipine 10 mg tablet 10 mg PO DAILY BLOOD PRESSURE #90 tabs 06/27/22 [Rx Last Taken 07/09/23] treprostinil diolamine 0.125 mg tablet,extended release (Orenitram) 0.125 mg PO Q8H 04/09/23 [History Last Taken Unknown] aspirin 81 mg tablet,delayed release (Adult Aspirin Regimen) 81 mg PO DAILY 06/27/23 [History Last Taken Unknown] treprostinil diolamine 5 mg tablet, extended release (Orenitram) 5 mg PO TID 07/05/23 [History Last Taken Unknown] lisinopril 5 mg tablet 5 mg PO DAILY BLOOD PRESSURE 07/09/23 [History Last Taken 07/09/23] Allergy/AdvReac Type Severity Reaction Status Date / Time pravastatin AdvReac Severe severe Verified 07/09/23 11:02 muscle and joint pain Family History Mother , age 83 Uterine cancer Hypertension Father , age 81 Heart disease Diabetes CAD (coronary artery disease) Hypertension Surgical History coil embolization of colonic artery H/O aortic valve replacement (09/15/18) History of appendectomy History of hysterectomy History of left heart catheterization (LHC) (04/10/17) History of root canal procedure Status post right foot surgery Social History household members: spouse housing: house Smoking Status: Never smoker alcohol intake: never substance use type: does not use caffeine: No what type of physical activity do you participate in: none divina/confucianism: Mennonite seatbelt use: always do you feel safe at home: Yes ROS ROS Narrative General: Denies fever/chills HENT: Denies headache, has had some nasal congestion, denies sore throat EYES: Denies changes in vision Resp: Denies cough, has had some increased shortness of breath Cardiac: Denies chest pain GI: Some nausea and dry heaving, abdominal cramping and pain, chronic loose stools : Denies changes in urination Extremity: Chronic bilateral lower extremity swelling MSK: Denies weakness Neuro: Denies any numbness/tingling Heme: Denies any bleeding or bruising Skin: Denies rashes Psychiatric: No complaints voiced Vital Signs Vital Signs Vital Signs: 07/09/23 11:02 07/09/23 11:49 07/09/23 11:54 Temperature 99 F Temperature Source Temporal Pulse Rate 77 80 72 Respiratory Rate 22 H 17 24 H Blood Pressure 120/50 L 153/45 H 144/51 H Blood Pressure Mean 73 81 82 Pulse Ox 89 75 Oxygen Delivery Method Room Air Room Air Nasal Cannula Oxygen Flow Rate (L/min) 4 07/09/23 13:00 07/09/23 13:40 07/09/23 13:46 Temperature 99 F Temperature Source Temporal Pulse Rate 85 87 81 Respiratory Rate 30 H 32 H 32 H Blood Pressure 158/68 H 164/57 H 156/55 H Blood Pressure Mean 98 92 88 Pulse Ox 97 97 97 Oxygen Delivery Method Nasal Cannula Nasal Cannula Oxygen Flow Rate (L/min) 4 5 07/09/23 14:00 Temperature Temperature Source Pulse Rate 84 Respiratory Rate 32 H Blood Pressure 135/52 H Blood Pressure Mean 79 Pulse Ox 93 Oxygen Delivery Method Venturi Mask Oxygen Flow Rate (L/min) Physical Exam Narrative General: Alert, oriented, appears uncomfortable HEENT: Atraumatic, normocephalic Eyes: Anicteric, normal conjunctiva, extraocular movements grossly intact Neck: Supple Respiratory: Increased respiratory effort, some crackles in left lung base Cardiovascular: Regular rate and rhythm GI: Tender primarily in epigastric region without rebound or rigidity Extremities: trace LE pitting edema Musculoskeletal: Moving all extremities Neuro: No overt focal neurological deficits Skin: No rashes appreciated Psych: Cooperative Results Lab / Micro Data 07/09/23 11:41 07/09/23 11:41 Labs: Laboratory Results - last 24 hr 07/09/23 11:41: WBC 10.4, RBC 3.12 L, Hgb 9.3 L, Hct 29.8 L, MCV 95.5, MCH 29.8, MCHC 31.2 L, RDW Std Deviation 50.2 H, RDW Coeff of Fariba 14.4, Plt Count 258, MPV 10.9, Immature Gran % (Auto) 0.500, Neut % (Auto) 88.3 H, Lymph % (Auto) 4.9 L, Estill % (Auto) 5.1, Eos % (Auto) 1.0, Baso % (Auto) 0.2, Absolute Neuts (auto) 9.2 H, Absolute Lymphs (auto) 0.51 L, Nucleated RBC % 0, Differential Comment COMMENT, Sodium 142, Potassium 3.5, Chloride 113 H, Carbon Dioxide 23.0, Anion Gap 6, BUN 14, Creatinine 1.18 H, Est GFR (MDRD) Af Amer 57 L, Est GFR (MDRD) Non-Af 47 L, BUN/Creatinine Ratio 11.9, Glucose 158 H, Lactic Acid 0.8, Calcium 9.0, Total Bilirubin 0.50, AST 125 H, ALT 55, Alkaline Phosphatase 151 H, Total Protein 7.1, Albumin 2.9 L, Globulin 4.2, Albumin/Globulin Ratio 0.7 L, Lipase > 5000 H 07/09/23 12:51: Urine Color Yellow, Urine Clarity Cloudy, Urine pH 5.0, Ur Specific Dandridge 1.020, Urine Protein 500 H, Urine Glucose (UA) Normal, Urine Ketones 5 H, Urine Occult Blood Negative, Urine Nitrite Negative, Urine Bilirubin Negative, Urine Urobilinogen 1 H, Ur Leukocyte Esterase 25 H, Urine RBC 0 SEEN, Urine WBC 5-10 SEEN, Ur Squamous Epith Cells 0-5 SEEN, Amorphous Sediment 2+, Urine Bacteria 0 SEEN, Fine Granular Casts 10-25 SEEN, Urine Mucus 0 SEEN 07/09/23 13:20: Lactate Dehydrogenase 322 H ABG Data ABG results: ABG 07/09/23 13:26 Specimen Type ART Sample Site L Radial pH 7.39 Bicarbonate Actual 20.4 L Total CO2 21 Base Excess -5 L O2 Saturation 92 L O2 % 6.0 ABG pCO2 33.7 L ABG pO2 64 L O2 Delivery Device Not entered Vent Mode Not entered Imagaing Radiology Impression Abdomen/Pelvis CT 07/09/23 11:25 IMPRESSION: Multiple gallstones are noted with gallbladder wall thickening and enhancement with pericholecystic fluid suggesting cholecystitis. Surgical consultation recommended The pancreas is poorly defined with peripancreatic inflammatory stranding and fluid around the pancreatic head, superimposed pancreatitis is suspected as well. Chronic interstitial changes in the lung bases with left pleural effusion, interstitial edema, and bibasilar atelectasis Cirrhotic liver without a discrete lesion No free intraperitoneal fluid or air, or suspicious adenopathy Degenerative bony changes Nonspecific induration of the subcutaneous fat Electronically Signed: Evaristo Guillen MD at 13:13 EST , Assessment & Plan Assessment/Plan (1) Acute gallstone pancreatitis: (2) Acute hypoxemic respiratory failure: (3) Chronic diastolic (congestive) heart failure: (4) Essential (primary) hypertension: (5) H/O aortic valve replacement: (6) Longstanding persistent atrial fibrillation: PLAN: Plan #Acute gallstone pancreatitis -Lipase >5000 w/ imaging consistent with pancreatitis -Presently heart rate stable and blood pressure 150s over 70s, hematocrit 29.8 which is similar to previous and BUN 14 which is also similar to previous -Additionally w/ gallbladder inflammation -Surgery consult -Patient already on vancomycin and Rocephin for unrelated reason, will change Rocephin to Zosyn -NPO, IVF, will need to hydrate but will do so cautiously given her pulmonary hypertension, concern for history of heart failure with preserved ejection fraction and hypoxia -I's and O's -Repeat CMP in the a.m., may need Katarzyna tube for concerns for cholecystitis but discussed with surgery and seems gallbladder inflammation may be secondary to the pancreatitis so that she will be monitored #Recent discitis -Had been on vancomycin and Rocephin, will change Rocephin to Zosyn and continue vancomycin -Consult ID #Acute hypoxia/Hx chronic HFpEF per documentation/Hx AV bioprosthetic replacement -Patient 75% on room air in ED improved to 92% on 6 L -Most recent echo February 2023 with PASP of 70, bioprosthetic aortic valve and EF of 60%, no comment on diastolic function but has documentation in chart of heart failure with preserved ejection fraction -Left pleural effusion noted on CT scan, overall fairly minimal -On Ventimask, order placed for BiPAP to help with work of breathing and oxygenation -Admit to ICU, commissary helper c/s -We will need to monitor fluids closely #GERD -Continue PPI #afib -Patient reports chronic A-fib but has had multiple GI bleeds most recently in February so has been taken off of all anticoagulation -She is undergoing evaluation for Watchman which is the ultimate goal #pulmonary HTN -Continue home medications #AARTI -On home cpap #Chronic anemia -Does not appear to be acutely bleeding #CKD IIIa #DVT ppx: Lovenox subcu Vannessa Justin MD Time spent in the patient's overall evaluation,decision-making process, review of diagnostic data, adjustment of management, discussion with other providers, nursing nursing and ancillary staff involved in patient's care documentation, 75 minutes Charges/Coding Visit Charges Inpatient E&M: 76292 Init Hosp L3
[2023-07-09] MEDS: 0.9% Normal Saline (1000mL) 1,000 ML 150 ML IV ×2 (16:08→22:52)
--- NOTE | 2023-07-09 17:12 | PCM.RX.CS ---
Consult Antibiotic Management Pharmacy has been consulted to manage selected antiobiotic: Vancomycin Type of Intervention Type of Consult: New start Suspected Infection Suspected Infection: Other (DISCITIS) Prior Doses of Antibiotics Prior Doses of Antibiotics Received/Current Regimen: Patient is currently receiving vancomycin 1000 mg Q24H and ceftriaxone 2 g Q24H outpatient ordered by Dr. Peacock for discitis. Labs Labs: Sodium 142 mmol/L (136-145) 07/09/23 11:41 Potassium 3.5 mmol/L (3.5-5.1) 07/09/23 11:41 Chloride 113 mmol/L (98-107) H 07/09/23 11:41 Carbon Dioxide 23.0 mmol/L (21.0-32.0) 07/09/23 11:41 Anion Gap 6 (5-15) 07/09/23 11:41 BUN 14 mg/dL (7-18) 07/09/23 11:41 Creatinine 1.18 mg/dL (0.55-1.02) H 07/09/23 11:41 Est GFR (MDRD) Af Amer 57 mL/min (>60) L 07/09/23 11:41 Est GFR (MDRD) Non-Af 47 mL/min (>60) L 07/09/23 11:41 BUN/Creatinine Ratio 11.9 RATIO (10-20) 07/09/23 11:41 Glucose 158 mg/dL (74-106) H 07/09/23 11:41 Dosing Weight Weight used for dosin.1 kg Estimated Creatinine Clearance Estimated Creatinine Clearance: ~53 (adjbw Goal Trough Goal Trough: 15-20 mcg/mL Pharmacy Plan for Drug Dosing Pharmacy Plan for Drug Dosing: Patient is currently maintained on vancomycin 1000 mg Q24H outpatient for discitis. The patient had a trough of 15.3 yesterday on stable dose mentioned. Will continue dosing 1000 mg Q24H with a trough prior to the patient's 3rd inpatient dose. Pharmacy Service will continue to monitor and adjust dosing as required. Follow-Up Labs Follow-Up Labs: Trough: Vancomycin Date/Time Labs Ordered Labs to be done on [date and time ordered]: 07/12/23 @ 0830
[2023-07-09] MEDS: Morphine 2 MG/ML Syringe IV ×2 (17:15→20:44)
[2023-07-09] MEDS: CLARIFY ORDER 1 EACH NOTE (19:47)
--- NOTE | 2023-07-09 19:48 | NURSING ---
Patient's stated that he could bring in patient's home medications tomorrow, pharmacy notified
[2023-07-09] MEDS: SILDENAFIL CITRATE 20 MG TABLET PO (20:44)
[2023-07-09] MEDS: Piperacil/Tazobactam 3.375 GM in 0.9% Normal Saline (50mL MB+) 50 ML IV (20:44)
[2023-07-09] MEDS: Pramipexole Di-HCl 0.125 MG Tablet PO (20:44)
[2023-07-09] MEDS: 0.9% Saline Lock 10 ML Syringe IV (20:45)
[2023-07-10] VITALS (29 sets, daily range): BP systolic 106–167; BP diastolic 47–83; PULSE 74–114; RESP 10–30; TEMP 36.3–36.6; O2SAT 91–99; BMI 46.7
[2023-07-10] MEDS: Morphine 2 MG/ML Syringe IV ×2 (00:21→05:59)
[2023-07-10] MEDS: 0.9% Saline Lock 10 ML Syringe IV ×3 (00:21→23:17)
--- NOTE | 2023-07-10 01:33 | CPS ---
Patient was complaining of being uncomfterable of BIPAP pressures, Pressures turned down to 12/6
[2023-07-10 04:32] LABS: Absolute Lymphocyte Count 0.63 X10^3/uL (0.83-4.51); Absolute Neutrophil Count 10.4 X10^3/uL (2.0-7.7); Basophil# 0.02 X10^3/uL; Basophil% 0.2 % (0-1); Eosinophil# 0.01 X10^3/uL; Eosinophils% 0.1 % (0-5); Hematocrit 34.3 % (37-47); Hemoglobin 10.2 g/dL (12.0-15.0); Lymphocyte # 0.63 X10^3/ul (0.83-4.51); Lymphocyte % 5.5 % (19-41); Mean Corp Hgb Conc 29.7 g/dL (32-36); Mean Corpuscular Hgb 28.5 pg (27.0-32.0); Mean Corpuscular Volume 95.8 fL (81-99); Monocyte% 3.5 % (0-10); NRBC Flagged by Analyzer 0 % (0-5); Neutrophil % 90.3 % (47-70); Platelet Count 283 K/mm3 (150-450); RBC Distribution Width CV 14.4 % (11.6-14.6); RBC Distribution Width SD 50.5 fl (35.1-43.9); Red Blood Count 3.58 M/mm3 (4.2-5.4); White Blood Count 11.5 K/mm3 (4.4-11.0)
[2023-07-10 05:12] LABS: ALB/GLOB Ratio 0.7 RATIO (0.9-2.4); AST(SGOT) 32 U/L (15-37); Alanine Aminotransfer ALT/SGPT 40 U/L (13-56); Albumin, Serum 2.7 g/dL (3.2-5.0); Alkaline Phosphatase 127 U/L (45-117); Anion Gap 7 (5-15); BUN 17 mg/dL (7-18); BUN/Creat Ratio 13.8 RATIO (10-20); Calcium,Total 7.8 mg/dL (8.5-10.1); Chloride 115 mmol/L (98-107); Creatinine, Serum 1.23 mg/dL (0.55-1.02); EST Glomerular Filtration Rate 45 mL/min (>60); Est Glom Filt Rate - Afr Amer 54 mL/min (>60); Estimated Creatinine Clearance 34.15 ml/min; Globulin 4.1 g/dL (2.2-4.2); Glucose 126 mg/dL (74-106); Protein, Total 6.8 g/dL (6.4-8.2); Sodium Level 144 mmol/L (136-145)
[2023-07-10] MEDS: SILDENAFIL CITRATE 20 MG TABLET PO ×3 (05:59→19:44)
[2023-07-10] MEDS: Piperacil/Tazobactam 3.375 GM in 0.9% Normal Saline (50mL MB+) 50 ML IV ×3 (05:59→19:41)
[2023-07-10] MEDS: 0.9% Normal Saline (1000mL) 1,000 ML 150 ML IV ×3 (06:00→19:41)
--- NOTE | 2023-07-10 07:11 | EX.PCM.CONCC ---
Assessment & Plan Assessment/Plan (1) Acute pancreatitis: QUALIFIERS: Pancreatitis type: drug induced Acute pancreatitis complication: no infection or necrosis Qualified Code(s): K85.30 - Drug induced acute pancreatitis without necrosis or infection (2) Pleural effusion on left: (3) Longstanding persistent atrial fibrillation: (4) Chronic diastolic (congestive) heart failure: PLAN: Plan RECOMMENDATIONS: 1. Wean oxygen as tolerated. BiPAP with sleep and rescue 2. Transition from morphine to Dilaudid 3. Consider transition from penicillin 4. Obtain triglycerides 5. Aggressive pain control 6. Potential transfer from the intensive care unit later today IMPRESSIONS: 1. Acute pancreatitis Unclear etiology from my perspective. Patient does have gallstones noted in the gallbladder, but no obstructing stone noted. Patient did have acute onset, which can be suggestive of gallstone pancreatitis. Patient also has been receiving penicillins and this has been known to cause pancreatitis. Will obtain lipids and triglycerides. Patient's calcium level does not appear to be high enough to warrant pancreatitis. Liver enzymes are normalized suggesting no ongoing obstruction. Will transition patient from morphine to Dilaudid secondary to theoretic sphincter of Oddi contraction 2. Acute hypoxic respiratory insufficiency secondary to HFpEF/pulmonary hypertension Patient was requiring significant oxygen requirements initially. It is unclear if this is related to fluid versus splinting associated with problem #1. Patient does have a history of pulmonary hypertension, but I cannot find any right heart catheterization. Clinical suspicion would be patient has an elevated wedge pressure making pulmonary artery pressures less reliable. Will hold on any diuresis for now, but may be after 24 hours if patient remains hemodynamically stable diuretics can be initiated. Will need to continue with treprostinil to avoid any rebound hypertension 3. GERD/A-fib/AARTI/anemia/CKD stage IIIa/morbid obesity/advanced age/recent discitis Complicates care, management, recovery and prognosis. Will transition from CPAP to BiPAP overnight to help with respiratory muscle fatigue. As abdominal pain improves, home CPAP could be used. Low clinical suspicion for development of sepsis HPI Consult Data Date of Consult: 07/10/23 HPI Narrative Reason for Consultation: Severe pancreatitis HPI Narrative: KAMI ROLLE is an 78 F, with past medical history listed below, who presented to [facility] 07/09/2023 secondary to abrupt onset of right-sided abdominal pain with dry heaves while receiving an antibiotic infusion at the infusion center. Patient reportedly was of her usual health and presented to the infusion center for antibiotics associated with recent discitis. Patient was noted to have a blood pressure of 89/43. Patient reportedly had had 2 bowel movements earlier in the day, but denied any blood or mucus. Patient had denied any back pain or history of trauma. On arrival to the emergency room, patient was normotensive at 120/50, but tachypneic as high as 32 breaths/min. Patient initially was noted to be 89% on room air, but then desaturated to 75% on room air following medications. Patient ultimately had to be placed on 5 L to maintain saturations. Laboratory workup showed a white blood cell count of 10.4, hemoglobin of 9.3 and platelets of 258. Chemistries showed a normal bicarbonate of 23, creatinine of 1.18 and glucose of 158. Patient's initial lipase was greater than 5000 and a UA did show significant protein with fine granular casts. Patient did have an arterial blood gas at that time showing partially compensated metabolic acidosis. A CT of the abdomen and pelvis was notable for multiple gallstones within the gallbladder with thickening and peripancreatic stranding. Patient appears to be clinically dehydrated and was given 1 L of normal saline, along with Zofran and morphine. There was some concern for respiratory decompensation, so BiPAP was ordered. Patient was then asked to come to the intensive care unit for further evaluation. Since being in the intensive care unit, patient has been normotensive. Patient is requiring supplemental oxygen at 4 L/min. Patient reportedly is not on supplemental oxygen at baseline. Patient did wear BiPAP for short period of time overnight secondary to a baseline of sleep apnea. Patient states she is compliant with her CPAP at baseline. Patient is not aware of previous lung insults. Patient does state that during her appendectomy 22 years ago that she was told that her gallbladder did not look good. Patient does have a port as she has had multiple GI bleeds in the past and gets iron infusions. Review of systems otherwise negative from a constitutional, HEENT, respiratory, cardiovascular, GI, genitourinary, musculoskeletal, skin, neurologic, psychiatric and hematologic system unless stated above. 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 Longstanding persistent atrial fibrillation Morbid obesity Non-ST elevation (NSTEMI) myocardial infarction (12/09/16) Nonobstructive atherosclerosis of coronary artery Nonrheumatic aortic (valve) stenosis Nonrheumatic mitral (valve) insufficiency Nonrheumatic tricuspid (valve) insufficiency Osteopenia Other secondary pulmonary hypertension Presence of IVC filter (09/2018) Sepsis secondary to UTI 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 Type 2 diabetes mellitus Home Medications ropinirole 0.25 mg tablet 0.25 mg PO QHS RESTLESS LEGS 11/18/17 [History Last Taken 07/08/23] sildenafil (pulm.hypertension) 20 mg tablet 20 mg PO TID PULMONARY HTN 11/18/17 [History Last Taken 07/09/23] magnesium 250 mg tablet 250 mg PO DAILY SUPPLEMENT 10/09/18 [History Last Taken 07/09/23] ferrous sulfate 325 mg (65 mg iron) tablet (Melissa-Time) 325 mg PO BID SUPPLEMENT 04/14/19 [History Last Taken 07/09/23] ascorbic acid (vitamin C) 500 mg capsule 500 mg PO DAILY SUPPLEMENT 05/10/20 [History Last Taken 07/09/23] cyanocobalamin (vitamin B-12) 2,500 mcg sublingual lozenge 2,500 mcg sublingual QODAY SUPPLEMENT 05/10/20 [History Last Taken 07/09/23] pantoprazole 40 mg tablet,delayed release 40 mg PO DAILY ACID REFLUX 03/06/21 [History Last Taken 07/08/23] amlodipine 10 mg tablet 10 mg PO DAILY BLOOD PRESSURE #90 tabs 06/27/22 [Rx Last Taken 07/09/23] treprostinil diolamine 0.125 mg tablet,extended release (Orenitram) 0.125 mg PO SA PULMONARY HTN 04/09/23 [History Last Taken Unknown] aspirin 81 mg tablet,delayed release (Adult Aspirin Regimen) 81 mg PO DAILY 06/27/23 [History Last Taken Unknown] lisinopril 5 mg tablet 5 mg PO DAILY BLOOD PRESSURE 07/09/23 [History Last Taken 07/09/23] treprostinil diolamine 1 mg tablet,extended release (Orenitram) 4.5 mg PO TID PULMONARY HTN 07/09/23 [History Last Taken Unknown] Allergy/AdvReac Type Severity Reaction Status Date / Time pravastatin AdvReac Severe severe Verified 07/09/23 11:02 muscle and joint pain Family History Mother , age 83 Uterine cancer Hypertension Father , age 81 Heart disease Diabetes CAD (coronary artery disease) Hypertension Surgical History coil embolization of colonic artery H/O aortic valve replacement (09/15/18) History of appendectomy History of hysterectomy History of left heart catheterization (LHC) (04/10/17) History of root canal procedure Status post right foot surgery Social History household members: spouse housing: house Smoking Status: Never smoker alcohol intake: never substance use type: does not use caffeine: No what type of physical activity do you participate in: none divina/sabianism: Mennonite seatbelt use: always do you feel safe at home: Yes ROS ROS Narrative See HPI Physical Exam Const alert and oriented x3 Constitutional Narrative: RASS 0 General Appearance: cooperative; Negative for lethargic HEENT normocephalic, head/scalp atraumatic and moist oral mucous membranes HEENT Narrative: Fair dentition General Ear: hearing grossly impaired diffuse Eyes PERRL, EOMs intact bilaterally, conjunctivae normal and no scleral icterus Eyes Narrative: Glasses in place Neck full ROM and no lymphadenopathy Chest inspection of chest normal Chest Narrative: Right chest port Resp Resp Narrative: Some splinting Effort and Inspection: tachypneic Auscultation: diminished lung sounds diffuse; Negative for rales, rhonchi or wheezes Cardio regular rate, S1 normal heart sound, S2 normal heart sound, no rub and no gallops Rhythm: abnormal rhythm irregularly irregular Heart Sounds: murmur GI Inspection: abdominal distention Palpation: tender, guarding and rigid Extremity General Extremity: edema; Negative for clubbing Skin no rashes or lesions noted Neuro oriented x3, CN's II-XII intact bilaterally and moves all extremities Psych cooperative and affect normal Medical Records Data Attestation: I reviewed the patient's medical records Lab / Micro Data Attestation: I reviewed the patient's lab results. 07/10/23 04:26 07/10/23 04:26 Labs: Laboratory Results - last 24 hr 07/09/23 11:41: WBC 10.4, RBC 3.12 L, Hgb 9.3 L, Hct 29.8 L, MCV 95.5, MCH 29.8, MCHC 31.2 L, RDW Std Deviation 50.2 H, RDW Coeff of Fariba 14.4, Plt Count 258, MPV 10.9, Immature Gran % (Auto) 0.500, Neut % (Auto) 88.3 H, Lymph % (Auto) 4.9 L, [place] % (Auto) 5.1, Eos % (Auto) 1.0, Baso % (Auto) 0.2, Absolute Neuts (auto) 9.2 H, Absolute Lymphs (auto) 0.51 L, Nucleated RBC % 0, Differential Comment COMMENT, Sodium 142, Potassium 3.5, Chloride 113 H, Carbon Dioxide 23.0, Anion Gap 6, BUN 14, Creatinine 1.18 H, Est GFR (MDRD) Af Amer 57 L, Est GFR (MDRD) Non-Af 47 L, BUN/Creatinine Ratio 11.9, Glucose 158 H, Lactic Acid 0.8, Calcium 9.0, Total Bilirubin 0.50, AST 125 H, ALT 55, Alkaline Phosphatase 151 H, Total Protein 7.1, Albumin 2.9 L, Globulin 4.2, Albumin/Globulin Ratio 0.7 L, Lipase > 5000 H 07/09/23 12:51: Urine Color Yellow, Urine Clarity Cloudy, Urine pH 5.0, Ur Specific [place] 1.020, Urine Protein 500 H, Urine Glucose (UA) Normal, Urine Ketones 5 H, Urine Occult Blood Negative, Urine Nitrite Negative, Urine Bilirubin Negative, Urine Urobilinogen 1 H, Ur Leukocyte Esterase 25 H, Urine RBC 0 SEEN, Urine WBC 5-10 SEEN, Ur Squamous Epith Cells 0-5 SEEN, Amorphous Sediment 2+, Urine Bacteria 0 SEEN, Fine Granular Casts 10-25 SEEN, Urine Mucus 0 SEEN 07/09/23 13:20: Lactate Dehydrogenase 322 H 07/10/23 04:26: WBC 11.5 H, RBC 3.58 L, Hgb 10.2 L, Hct 34.3 L, MCV 95.8, MCH 28.5, MCHC 29.7 L, RDW Std Deviation 50.5 H, RDW Coeff of Fariba 14.4, Plt Count 283, MPV 11.0, Immature Gran % (Auto) 0.400, Neut % (Auto) 90.3 H, Lymph % (Auto) 5.5 L, [place] % (Auto) 3.5, Eos % (Auto) 0.1, Baso % (Auto) 0.2, Absolute Neuts (auto) 10.4 H, Absolute Lymphs (auto) 0.63 L, Nucleated RBC % 0, Sodium 144, Potassium 4.0, Chloride 115 H, Carbon Dioxide 22.0, Anion Gap 7, BUN 17, Creatinine 1.23 H, Estim Creat Clear Calc 34.15, Est GFR (MDRD) Af Amer 54 L, Est GFR (MDRD) Non-Af 45 L, BUN/Creatinine Ratio 13.8, Glucose 126 H, Calcium 7.8 L, Total Bilirubin 0.30, AST 32, ALT 40, Alkaline Phosphatase 127 H, Total Protein 6.8, Albumin 2.7 L, Globulin 4.1, Albumin/Globulin Ratio 0.7 L ABG Data ABG results: ABG 07/09/23 13:26 Specimen Type ART Sample Site L Radial pH 7.39 Bicarbonate Actual 20.4 L Total CO2 21 Base Excess -5 L O2 Saturation 92 L O2 % 6.0 ABG pCO2 33.7 L ABG pO2 64 L O2 Delivery Device Not entered Vent Mode Not entered Imagaing Radiology Impression Abdomen/Pelvis CT 07/09/23 11:25 IMPRESSION: Multiple gallstones are noted with gallbladder wall thickening and enhancement with pericholecystic fluid suggesting cholecystitis. Surgical consultation recommended The pancreas is poorly defined with peripancreatic inflammatory stranding and fluid around the pancreatic head, superimposed pancreatitis is suspected as well. Chronic interstitial changes in the lung bases with left pleural effusion, interstitial edema, and bibasilar atelectasis Cirrhotic liver without a discrete lesion No free intraperitoneal fluid or air, or suspicious adenopathy Degenerative bony changes Nonspecific induration of the subcutaneous fat Electronically Signed: Evaristo Guillen MD at 13:13 EST , Charges/Coding Visit Charges Inpatient E&M: 07114 Init Hosp L3
[2023-07-10 07:46] LABS: Lipase 679 U/L (13-75)
--- NOTE | 2023-07-10 07:47 | PCM.PN.HOSP ---
Reason for Visit Reason for Visit: Diagnoses Essential (primary) hypertension (07/09/23) Longstanding persistent atrial fibrillation (07/09/23) Chronic diastolic (congestive) heart failure (07/09/23) Acute respiratory failure with hypoxia (07/09/23) Biliary acute pancreatitis without necrosis or infection (07/09/23) Presence of prosthetic heart valve (07/09/23) Objective Data Objective Data Vital Signs: Vital Signs Temp Pulse Resp BP Pulse Ox O2 Del Method O2 Flow Rate 97.4 F L 86 23 H 154/71 H 98 Nasal Cannula 4 07/10/23 05:00 07/10/23 07:00 07/10/23 07:00 07/10/23 07:00 07/10/23 07:00 07/10/23 07:00 07/10/23 01:00 FiO2 4 07/10/23 07:00 Oxygen Flow Rate (L/min) 4 Oxygen Delivery Method Nasal Cannula Weight: 290 lb 9.108 oz Body Mass Index (BMI) 46.7 Intake & Output: Intake and Output for Last 24 Hours 07/08/23 07/09/23 07/10/23 23:59 23:59 23:59 Intake Total 2100 / 2100 1050 / 1050 Output Total 200 / 250 155 / 155 Balance 1900 / 1850 895 / 895 Lab / Micro Data 07/10/23 04:26 07/10/23 04:26 Labs: Laboratory Results - last 24 hr 07/09/23 11:41: WBC 10.4, RBC 3.12 L, Hgb 9.3 L, Hct 29.8 L, MCV 95.5, MCH 29.8, MCHC 31.2 L, RDW Std Deviation 50.2 H, RDW Coeff of Fariba 14.4, Plt Count 258, MPV 10.9, Immature Gran % (Auto) 0.500, Neut % (Auto) 88.3 H, Lymph % (Auto) 4.9 L, [place] % (Auto) 5.1, Eos % (Auto) 1.0, Baso % (Auto) 0.2, Absolute Neuts (auto) 9.2 H, Absolute Lymphs (auto) 0.51 L, Nucleated RBC % 0, Differential Comment COMMENT, Sodium 142, Potassium 3.5, Chloride 113 H, Carbon Dioxide 23.0, Anion Gap 6, BUN 14, Creatinine 1.18 H, Est GFR (MDRD) Af Amer 57 L, Est GFR (MDRD) Non-Af 47 L, BUN/Creatinine Ratio 11.9, Glucose 158 H, Lactic Acid 0.8, Calcium 9.0, Total Bilirubin 0.50, AST 125 H, ALT 55, Alkaline Phosphatase 151 H, Total Protein 7.1, Albumin 2.9 L, Globulin 4.2, Albumin/Globulin Ratio 0.7 L, Lipase > 5000 H 07/09/23 12:51: Urine Color Yellow, Urine Clarity Cloudy, Urine pH 5.0, Ur Specific [place] 1.020, Urine Protein 500 H, Urine Glucose (UA) Normal, Urine Ketones 5 H, Urine Occult Blood Negative, Urine Nitrite Negative, Urine Bilirubin Negative, Urine Urobilinogen 1 H, Ur Leukocyte Esterase 25 H, Urine RBC 0 SEEN, Urine WBC 5-10 SEEN, Ur Squamous Epith Cells 0-5 SEEN, Amorphous Sediment 2+, Urine Bacteria 0 SEEN, Fine Granular Casts 10-25 SEEN, Urine Mucus 0 SEEN 07/09/23 13:20: Lactate Dehydrogenase 322 H 07/10/23 04:26: WBC 11.5 H, RBC 3.58 L, Hgb 10.2 L, Hct 34.3 L, MCV 95.8, MCH 28.5, MCHC 29.7 L, RDW Std Deviation 50.5 H, RDW Coeff of Fariba 14.4, Plt Count 283, MPV 11.0, Immature Gran % (Auto) 0.400, Neut % (Auto) 90.3 H, Lymph % (Auto) 5.5 L, [place] % (Auto) 3.5, Eos % (Auto) 0.1, Baso % (Auto) 0.2, Absolute Neuts (auto) 10.4 H, Absolute Lymphs (auto) 0.63 L, Nucleated RBC % 0, Sodium 144, Potassium 4.0, Chloride 115 H, Carbon Dioxide 22.0, Anion Gap 7, BUN 17, Creatinine 1.23 H, Estim Creat Clear Calc 34.15, Est GFR (MDRD) Af Amer 54 L, Est GFR (MDRD) Non-Af 45 L, BUN/Creatinine Ratio 13.8, Glucose 126 H, Calcium 7.8 L, Total Bilirubin 0.30, AST 32, ALT 40, Alkaline Phosphatase 127 H, Total Protein 6.8, Albumin 2.7 L, Globulin 4.1, Albumin/Globulin Ratio 0.7 L, Lipase 679 H ABG Data ABG results: ABG 07/09/23 13:26 Specimen Type ART Sample Site L Radial pH 7.39 Bicarbonate Actual 20.4 L Total CO2 21 Base Excess -5 L O2 Saturation 92 L O2 % 6.0 ABG pCO2 33.7 L ABG pO2 64 L O2 Delivery Device Not entered Vent Mode Not entered Radiography Diagnostic Testing: Radiology Impression Abdomen/Pelvis CT 07/09/23 11:25 IMPRESSION: Multiple gallstones are noted with gallbladder wall thickening and enhancement with pericholecystic fluid suggesting cholecystitis. Surgical consultation recommended The pancreas is poorly defined with peripancreatic inflammatory stranding and fluid around the pancreatic head, superimposed pancreatitis is suspected as well. Chronic interstitial changes in the lung bases with left pleural effusion, interstitial edema, and bibasilar atelectasis Cirrhotic liver without a discrete lesion No free intraperitoneal fluid or air, or suspicious adenopathy Degenerative bony changes Nonspecific induration of the subcutaneous fat Electronically Signed: Evaristo Guillen MD at 13:13 EST , Physical Exam Narrative Seen and examined. Patient is stated that she had ruptured appendix in 2000 for which she had laparotomy and at that time also her gallbladder had stones but was thought does not need cholecystectomy. She was started in October 2022 on treprostinil for pulmonary hypertension by Dr. Nelson and dose has gradually been increased. Yesterday during infusion she admitted with severe epigastric and right upper quadrant pain Labs suggestive of acute pancreatitis. No fever. Physical exam General: Alert, Oriented x3, Cooperative HEENT: Atraumatic, PERRLA, EOMI, Normocephalic Oral: Oral mucosa dry. No Gingival or Mucosal Lesions/ Ulcerations Neck: Supple, No JVD, Negative Carotid Bruits Lungs: Air entry diminished in bilateral lung bases. No crepitation/rhonchi Cardiovascular: Regular rate, Regular Rhythm, Normal S1, Normal S2, No murmurs Abdomen: Bowel Sounds sluggish. Tenderness present over epigastric and right upper quadrant. No distention. Mild voluntary guarding. No rigidity. : No dysuria. No renal angle tenderness. No suprapubic tenderness. Extremities: No edema, Capillary Refill Less than 3 Seconds Skin: No rashes, No breakdown Musculoskeletal: No Tenderness to Palpation of Joints or Extremities Neurological: Cranial nerves II-XII grossly intact, DTR 2+/4. No acute focal neurological deficit. Psych/Mental Status: Flat affect. Assessment & Plan Assessment/Plan (1) Acute gallstone pancreatitis: (2) Acute hypoxemic respiratory failure: (3) Chronic diastolic (congestive) heart failure: (4) Essential (primary) hypertension: (5) H/O aortic valve replacement: (6) Longstanding persistent atrial fibrillation: PLAN: Plan 78-year-old female is being admitted in ICU after sudden onset of predominantly, low blood pressure 89/43, nausea with dry heaves, sent to ED from infusion center where she was getting vancomycin and Rocephin for history of discitis. She had 2 BM in the morning #Acute gallstone pancreatitis -Lipase >5000 w/ imaging consistent with pancreatitis. CT abdomen individually reviewed and shows inflammation around gallbladder and pancreas, multiple gallstones with GB wall thickening and pericholecystic fluid suggesting cholecystitis. But gallbladder not distended. Patient was evaluated by surgeon and there is anticipation of laparoscopic surgery after pancreatitis resolved. Hematocrit on admission was 29% currently 34.3. BUN 14. Heart rate and blood pressure in acceptable limit. Hematocrit 29.8 and BUN 14 within acceptable limit. Continue IV fluid. Pain medication Dilaudid. -Patient already on vancomycin and Rocephin for history of discitis, and Rocephin was changed to Zosyn. -N.p.o. IV fluid. #Recent discitis -ID was consulted. Patient to stop date of vancomycin and ceftriaxone 07/21/2023. Back pain overall much improved. Pancreatitis is a rare reported reaction with ceftriaxone so could be a possible cause. Currently on vancomycin and Zosyn. #Acute hypoxia/Hx chronic HFpEF per documentation/Hx AV bioprosthetic replacement -Patient 75% on room air in ED improved to 92% on 6 L, Currently on 4 L of oxygen. -Most recent echo February 2023 with PASP of 70, bioprosthetic aortic valve and EF of 60%, no comment on diastolic function but has documentation in chart of heart failure with preserved ejection fraction -Left pleural effusion noted on CT scan, overall fairly minimal -Patient was put on Ventimask and then BiPAP and assistant terminal manager was consulted. During the day patient improved and is stable for transfer out of ICU. #GERD -Continue PPI #afib -Patient reports chronic A-fib but has had multiple GI bleeds most recently in February so has been taken off of all anticoagulation -She is undergoing evaluation for Watchman which is the ultimate goal #pulmonary HTN Patient on treprostinil 4.5 mg tablet 3 times a day an additional 0.125 mg on every Saturday until final goal is achieved. Currently it is on hold. I called Dr. Nelson phone and left a voicemail to call back. #AARTI -On home cpap #Chronic anemia -Does not appear to be acutely bleeding #CKD IIIa: BUNs/creatinine . #DVT ppx: Lovenox subcu Total time of the visit including total time spent in counseling or coordination of care, (more than 50% of the total time, spent in obtaining medical information from nurses and other ancillary care providers,explaining to the patient about labs, imaging, diagnosis and management of active complex medical conditions), , review of labs and imaging is 40 minutes. Charges/Coding Visit Charges Inpatient E&M: 73598 Subs Hosp L3
--- NOTE | 2023-07-10 08:04 | PCM.PN.SRG ---
Subjective Subjective Patient reports that the pain is similar to yesterday with no change. She denies nausea. Objective Data Objective Data Vital Signs: Vital Signs Temp Pulse Resp BP Pulse Ox O2 Del Method O2 Flow Rate 97.4 F L 86 23 H 154/71 H 98 Nasal Cannula 4 07/10/23 05:00 07/10/23 07:00 07/10/23 07:00 07/10/23 07:00 07/10/23 07:00 07/10/23 07:00 07/10/23 01:00 FiO2 4 07/10/23 07:00 Oxygen Flow Rate (L/min) 4 Oxygen Delivery Method Nasal Cannula Weight: 290 lb 9.108 oz Body Mass Index (BMI) 46.7 Intake & Output: Intake and Output for Last 24 Hours 07/08/23 07/09/23 07/10/23 23:59 23:59 23:59 Intake Total 2100 / 2100 1050 / 1050 Output Total 200 / 250 155 / 155 Balance 1900 / 1850 895 / 895 Lab / Micro Data 07/10/23 04:26 07/10/23 04:26 Labs: Laboratory Results - last 24 hr 07/09/23 11:41: WBC 10.4, RBC 3.12 L, Hgb 9.3 L, Hct 29.8 L, MCV 95.5, MCH 29.8, MCHC 31.2 L, RDW Std Deviation 50.2 H, RDW Coeff of Fariba 14.4, Plt Count 258, MPV 10.9, Immature Gran % (Auto) 0.500, Neut % (Auto) 88.3 H, Lymph % (Auto) 4.9 L, [place] % (Auto) 5.1, Eos % (Auto) 1.0, Baso % (Auto) 0.2, Absolute Neuts (auto) 9.2 H, Absolute Lymphs (auto) 0.51 L, Nucleated RBC % 0, Differential Comment COMMENT, Sodium 142, Potassium 3.5, Chloride 113 H, Carbon Dioxide 23.0, Anion Gap 6, BUN 14, Creatinine 1.18 H, Est GFR (MDRD) Af Amer 57 L, Est GFR (MDRD) Non-Af 47 L, BUN/Creatinine Ratio 11.9, Glucose 158 H, Lactic Acid 0.8, Calcium 9.0, Total Bilirubin 0.50, AST 125 H, ALT 55, Alkaline Phosphatase 151 H, Total Protein 7.1, Albumin 2.9 L, Globulin 4.2, Albumin/Globulin Ratio 0.7 L, Lipase > 5000 H 07/09/23 12:51: Urine Color Yellow, Urine Clarity Cloudy, Urine pH 5.0, Ur Specific [place] 1.020, Urine Protein 500 H, Urine Glucose (UA) Normal, Urine Ketones 5 H, Urine Occult Blood Negative, Urine Nitrite Negative, Urine Bilirubin Negative, Urine Urobilinogen 1 H, Ur Leukocyte Esterase 25 H, Urine RBC 0 SEEN, Urine WBC 5-10 SEEN, Ur Squamous Epith Cells 0-5 SEEN, Amorphous Sediment 2+, Urine Bacteria 0 SEEN, Fine Granular Casts 10-25 SEEN, Urine Mucus 0 SEEN 07/09/23 13:20: Lactate Dehydrogenase 322 H 07/10/23 04:26: WBC 11.5 H, RBC 3.58 L, Hgb 10.2 L, Hct 34.3 L, MCV 95.8, MCH 28.5, MCHC 29.7 L, RDW Std Deviation 50.5 H, RDW Coeff of Fariba 14.4, Plt Count 283, MPV 11.0, Immature Gran % (Auto) 0.400, Neut % (Auto) 90.3 H, Lymph % (Auto) 5.5 L, [place] % (Auto) 3.5, Eos % (Auto) 0.1, Baso % (Auto) 0.2, Absolute Neuts (auto) 10.4 H, Absolute Lymphs (auto) 0.63 L, Nucleated RBC % 0, Sodium 144, Potassium 4.0, Chloride 115 H, Carbon Dioxide 22.0, Anion Gap 7, BUN 17, Creatinine 1.23 H, Estim Creat Clear Calc 34.15, Est GFR (MDRD) Af Amer 54 L, Est GFR (MDRD) Non-Af 45 L, BUN/Creatinine Ratio 13.8, Glucose 126 H, Calcium 7.8 L, Total Bilirubin 0.30, AST 32, ALT 40, Alkaline Phosphatase 127 H, Total Protein 6.8, Albumin 2.7 L, Globulin 4.1, Albumin/Globulin Ratio 0.7 L, Lipase 679 H ABG Data ABG results: ABG 07/09/23 13:26 Specimen Type ART Sample Site L Radial pH 7.39 Bicarbonate Actual 20.4 L Total CO2 21 Base Excess -5 L O2 Saturation 92 L O2 % 6.0 ABG pCO2 33.7 L ABG pO2 64 L O2 Delivery Device Not entered Vent Mode Not entered Radiography Diagnostic Testing: Radiology Impression Abdomen/Pelvis CT 07/09/23 11:25 IMPRESSION: Multiple gallstones are noted with gallbladder wall thickening and enhancement with pericholecystic fluid suggesting cholecystitis. Surgical consultation recommended The pancreas is poorly defined with peripancreatic inflammatory stranding and fluid around the pancreatic head, superimposed pancreatitis is suspected as well. Chronic interstitial changes in the lung bases with left pleural effusion, interstitial edema, and bibasilar atelectasis Cirrhotic liver without a discrete lesion No free intraperitoneal fluid or air, or suspicious adenopathy Degenerative bony changes Nonspecific induration of the subcutaneous fat Electronically Signed: Evaristo Guillen MD at 13:13 EST , Physical Exam Const oriented x3 and no apparent distress Resp normal respiratory effort Cardio regular rate and regular rhythm GI soft to palpation Palpation: tender epigastric, LUQ and RUQ Extremity normal to inspection Assessment & Plan Assessment/Plan (1) Acute pancreatitis: QUALIFIERS: Pancreatitis type: drug induced Acute pancreatitis complication: no infection or necrosis Qualified Code(s): K85.30 - Drug induced acute pancreatitis without necrosis or infection PLAN: The patient has acute pancreatitis and her lipase is decreasing. The patient does have gallstones and there was some inflammation around the gallbladder but the LFTs were never increased. There was discussion with the element winding machine tender this morning about possibility of drug-induced pancreatitis as this occurred during her infusion of antibiotics. Currently the patient is about the same as she was yesterday and I recommend continued n.p.o. until her pain resolves. She is tender throughout her upper abdomen. Continue treatment of pancreatitis and antibiotics currently. Unsure if she will require laparoscopic cholecystectomy to prevent further issues if we believe this is due to the gallstones or if we believe this is drug-induced and she may need to change her antibiotic infusion. Will continue to follow. Bo Madrid MD Pager: [facility] [address] [place] [address], [address] [place] [address] Office:
[2023-07-10 08:26] LABS: Allen Test Positive; Blood Gas Specimen Type ART
[2023-07-10 08:27] LABS: EPAP 6; IPAP 12; O2 Delivery Device BiPAP
[2023-07-10 08:28] LABS: pH 7.35 (7.35-7.45)
[2023-07-10 08:29] LABS: Base Excess -6 mmol/L (-2 to +2); PO2 65 mmHG (75-100); Total Carbon Dioxide 21 mmol/L; pCO2 35.9 mmHg (35-45)
[2023-07-10 08:31] LABS: SO2 92 % (95-99)
[2023-07-10 08:33] LABS: Blood Gas Specimen Type VEN
[2023-07-10 08:34] LABS: O2 Delivery Device Bi Pap
[2023-07-10 08:35] LABS: VBG BASE EXCESS -5 mmol/L (-1.0-3.5); VBG Bicarbonate 21 mmol/L (22-26); VBG PO2 36 mmHg (25-40); VBG SO2 66 % (50-70); VBG TCO2 22 mmol/L (23-33); VBG pCO2 38.3 mmHg (41-51); VBG pH 7.34 (7.32-7.42)
[2023-07-10 08:37] LABS: Cholesterol 102 mg/dL (200); High Density Lipoprotein 37 mg/dL; Triglycerides 72 mg/dL; Very Low Density Lipoprotein 14 mg/dL (5-40)
[2023-07-10] MEDS: Enoxaparin 40 MG/0.4 ML Syringe SC (10:07)
[2023-07-10] MEDS: Vancomycin IV 1,000 MG/200 ML BAG 200 MG IV (10:07)
[2023-07-10] MEDS: HYDROmorphone 0.5 MG/0.5 ML SYRINGE IV ×3 (11:20→23:17)
--- NOTE | 2023-07-10 13:10 | CASEMGMT ---
Addendum entered by James Jean 07/10/23 16:52: LELE BEGUM to room and provided pt with list of C agencies that was prepared by Narcisa event planner for pt to review if they do decide for pt to go home w/HHC. Pt states she does not have a preference if she does decide to go home w/HHC. Per Sophie @ [facility], cost would be $512/week w/pt's drug co-pays for IV atb/supplies. Pt made aware of same. LELE BEGUM asked if she would like this RN CM to call her to update him or their daughter. She asks that RN SHY write this info on the paper in her room and she will let them know. She states she wong not think that their daughter will want her doing IV admin @ her home, but she is not sure. Original Note: LELE BEGUM Assessment: LELE BEGUM to room to meet with patient for initial transition planning/care coordination assessment. LELE BEGUM introduced self and role at [facility]. Pt is sitting up in chair in no distress at this time. @ bedside. They voice understanding and consent to assessment at this time. Pt is A/O at this time and answers all questions appropriately at this time. Care providers, pharmacy, and demographics verified at this time. PCP: Chiquis Santana Specialists: Breanne cardio; Leslie pulkitty; [facility]; KIM Zamora in [place] Preferred Pharmacy: [facility] Insurance: [facility] A/B, MMO Prescription Benefit: Yes Living Will/HPOA: Pt has LW/HPOA. Pt states her , Foster Singh, is HPOA. LNOK: Foster Singh, ; Rhianna Joneskerts, daughter Living Arrangements: Pt states lives with in 1 story home with 2 steps to enter through the garage or ramp through another entrance. Pt states she was independent with ADL's up until May of this year when she went to [facility] w/discitis. She went to [facility] from there and then discharged home either 07/04 or 07/05. Since returning home, has been assisting w/bathing and dressing and does most home mgnt tasks. Pt manages her own medications. Transportation: Pt states drives self or drives and states no transportation concerns at this time. DME: Pt states has the following DME: cane, walker, w/c, lift chair, nebulizer,pulse ox, lymphedema pumps, grab bars, and cpap thru [facility]. Pt states no need for any further DME at this time. HHC/SNF: Pt states has had HHC in the past and was just @ [facility] Jun 19, 2023 until Jul 04 or . Pt states she does not want to go to a SNF at discharge and that she feels safe to return home. OP Infusion: Pt has been going to [facility] OP Infusion center daily since returning home from [place] and states plan was to get IV atb's until Jul 21. She has a PORT. Both pt and voice it has been difficult getting in and out of the vehicle to go to the infusion center and they may be interested in HHC for SN/IV infusion and for therapy. Questions answered. states he would be willing to learn how to administer the medications, but he wishes to talk w/their daughter, who is a nurse, about it first. They would like financial benefit ran also to determine pt's out of pocket cost for medication/supplies. They do not have a preference of Infusion co and state are okay w/[facility]. Call placed to Diana @ [facility] Infusion center. Pt currently getting IV Vanco 1 GM daily and IV Rocephin 2 GM's daily. Demographic sheet faxed to [facility]. Call placed to [facility] and spoke w/Marisol. She was made aware of medications pt has been getting as an OP (Vanco and Rocephin) and that pt/ request for financial benefits to be determined for these medication. Awaiting call back. Pt and made aware, if pt does return home w/resumption of OP infusions @ [facility] infusion center, that a script could be provided for OP therapy, if desired. Pt and state no further concerns with going home at time of discharge. Pt and state no further concerns/needs at this time. CM to follow for any further discharge planning/needs. Advised them to ask for CM if any further questions/concerns/needs arise. They voice understanding. Plan: TBD. Home w/resumption of daily OP IV antibiotic infusions @ [facility] OP infusion center and possible OP therapy vs Home w/HHC for SN for IV antibiotics and therapy. DGiauque BSN RN CM
--- NOTE | 2023-07-10 13:52 | CON.PCM.ID_ITS ---
Assessment & Plan Assessment/Plan (1) Acute pancreatitis: QUALIFIERS: Pancreatitis type: drug induced Acute pancreatitis complication: no infection or necrosis Qualified Code(s): K85.30 - Drug induced acute pancreatitis without necrosis or infection (2) Lumbar discitis: PLAN: On vanc/ceftriaxone empirically for lumbar discitis. Stop date 07/21/23, back pain overall much improved. Pancreatitis is a rare reported reaction with ceftriaxone, so it could be a possible cause. On vanc/zosyn here, will continue for now which would also cover for any possible cholecystitis. Will follow, thank you HPI Consult Data Date of Consult: 07/10/23 HPI Narrative Reason for Consultation: discitis HPI Narrative: KAMI ROLLE, is a 78 F who presented to [facility] 07/09 with sudden onset epigastric pain, nausea, dry heaves. No fever or chills. Pain was mild. On vanc/ceftriaxone for lumbar discitis for 6 week course, stop date 07/21/23. Back pain overall is much improved since starting abx. No issues with line. No diarrhea. Admitted on vanc/zosyn, abd slightly better. Full ROS performed and neg except as noted above. 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 Longstanding persistent atrial fibrillation Morbid obesity Non-ST elevation (NSTEMI) myocardial infarction (12/09/16) Nonobstructive atherosclerosis of coronary artery Nonrheumatic aortic (valve) stenosis Nonrheumatic mitral (valve) insufficiency Nonrheumatic tricuspid (valve) insufficiency Osteopenia Other secondary pulmonary hypertension Presence of IVC filter (09/2018) Sepsis secondary to UTI 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 Type 2 diabetes mellitus Home Medications ropinirole 0.25 mg tablet 0.25 mg PO QHS RESTLESS LEGS 11/18/17 [History Last Taken 07/08/23] sildenafil (pulm.hypertension) 20 mg tablet 20 mg PO TID PULMONARY HTN 11/18/17 [History Last Taken 07/09/23] magnesium 250 mg tablet 250 mg PO DAILY SUPPLEMENT 10/09/18 [History Last Taken 07/09/23] ferrous sulfate 325 mg (65 mg iron) tablet (Melissa-Time) 325 mg PO BID SUPPLEMENT 04/14/19 [History Last Taken 07/09/23] ascorbic acid (vitamin C) 500 mg capsule 500 mg PO DAILY SUPPLEMENT 05/10/20 [History Last Taken 07/09/23] cyanocobalamin (vitamin B-12) 2,500 mcg sublingual lozenge 2,500 mcg sublingual QODAY SUPPLEMENT 05/10/20 [History Last Taken 07/09/23] pantoprazole 40 mg tablet,delayed release 40 mg PO DAILY ACID REFLUX 03/06/21 [History Last Taken 07/08/23] amlodipine 10 mg tablet 10 mg PO DAILY BLOOD PRESSURE #90 tabs 06/27/22 [Rx Last Taken 07/09/23] treprostinil diolamine 0.125 mg tablet,extended release (Orenitram) 0.125 mg PO SA PULMONARY HTN 04/09/23 [History Last Taken Unknown] aspirin 81 mg tablet,delayed release (Adult Aspirin Regimen) 81 mg PO DAILY 05/11 [History Last Taken Unknown] lisinopril 5 mg tablet 5 mg PO DAILY BLOOD PRESSURE 07/09/23 [History Last Taken 07/09/23] treprostinil diolamine 1 mg tablet,extended release (Orenitram) 4.5 mg PO TID PULMONARY HTN 07/09/23 [History Last Taken Unknown] Allergy/AdvReac Type Severity Reaction Status Date / Time pravastatin AdvReac Severe severe Verified 07/09/23 11:02 muscle and joint pain Family History Mother , age 83 Uterine cancer Hypertension Father , age 81 Heart disease Diabetes CAD (coronary artery disease) Hypertension Surgical History coil embolization of colonic artery H/O aortic valve replacement (09/15/18) History of appendectomy History of hysterectomy History of left heart catheterization (LHC) (04/10/17) History of root canal procedure Status post right foot surgery Social History household members: spouse housing: house Smoking Status: Never smoker alcohol intake: never substance use type: does not use caffeine: No what type of physical activity do you participate in: none divina/nondenominational: Mennonite seatbelt use: always do you feel safe at home: Yes Physical Exam Const alert, oriented x3 and no apparent distress General Appearance: cooperative HEENT normocephalic and head/scalp atraumatic Eyes PERRL and EOMs intact bilaterally Neck supple and No nodes Resp normal air movement and clear to auscultation bilaterally Cardio regular rate and regular rhythm GI soft to palpation and non-distended GI Narrative: mild RUQ tenderness Extremity General Extremity: Negative for edema Skin no rashes or lesions noted Neuro CN's II-XII intact bilaterally Lab / Micro Data Attestation: I reviewed the patient's lab results. 07/10/23 04:26 07/10/23 04:26 Labs: Laboratory Results - last 24 hr 07/10/23 04:26: WBC 11.5 H, RBC 3.58 L, Hgb 10.2 L, Hct 34.3 L, MCV 95.8, MCH 28.5, MCHC 29.7 L, RDW Std Deviation 50.5 H, RDW Coeff of Fariba 14.4, Plt Count 283, MPV 11.0, Immature Gran % (Auto) 0.400, Neut % (Auto) 90.3 H, Lymph % (Auto) 5.5 L, [place] % (Auto) 3.5, Eos % (Auto) 0.1, Baso % (Auto) 0.2, Absolute Neuts (auto) 10.4 H, Absolute Lymphs (auto) 0.63 L, Nucleated RBC % 0, Sodium 144, Potassium 4.0, Chloride 115 H, Carbon Dioxide 22.0, Anion Gap 7, BUN 17, Creatinine 1.23 H, Estim Creat Clear Calc 34.15, Est GFR (MDRD) Af Amer 54 L, Est GFR (MDRD) Non-Af 45 L, BUN/Creatinine Ratio 13.8, Glucose 126 H, Calcium 7.8 L, Total Bilirubin 0.30, AST 32, ALT 40, Alkaline Phosphatase 127 H, Total P rotein 6.8, Albumin 2.7 L, Globulin 4.1, Albumin/Globulin Ratio 0.7 L, Triglycerides 72, Cholesterol 102, LDL Cholesterol 51, VLDL Cholesterol 14, HDL Cholesterol 37 L, Lipase 679 H ABG Data ABG results: ABG 07/10/23 07/10/23 02:40 04:27 Specimen Type ART MERCEDES pH 7.35 Bicarbonate Actual 20.0 L Total CO2 21 Base Excess -6 L O2 Saturation 92 L O2 % 25.0 25.0 ABG pCO2 35.9 ABG pO2 65 L Jose Test Positive VBG pH 7.34 VBG pO2 36 VBG HCO3 21 L VBG Total CO2 22 L VBG O2 Sat (Calc) 66 VBG Base Excess -5 L POC Mix VBG pCO2 Pt Tmp 38.3 L O2 Delivery Device BiPAP Bi Pap EPAP 6 IPAP 12 Crit Call To/Read Back Yes Yes Blood Gas Notified Whom RN RN Blood Gas Notified Time [id number] Clinical Comments OLIVIA
--- NOTE | 2023-07-10 14:46 | CASEMGMT ---
Discharge Planning A list of?SNF providers including quality and resource use data and consistent with the patient's preferred geographic region, medical needs, and insurance network was created in [employer] Guide.? This list was provided to the RN SHY. Narcisa Delgado, Discharge Planning Asst.
--- NOTE | 2023-07-10 15:17 | CHAPLAIN ---
Type of Pastoral Visit _x__ Initial Visit ___ Follow-up Visit ___ On-call Visit ___ General Patient Visit ___ Spiritual Assessment ___ Family Conference ___ Bereavement ___ Rapid Response ___ Code Blue ___ Other (describe below) Pastoral Care Referral From _x__ Patient ___ Family ___ Nurse ___ Physician ___ Spanish Interpreter/Translator ___ Lpn Home Health ___ Other (describe below) Sacrament/Intervention _x__ Active listening ___ Anointing ___ Alevism ___ Bereavement ___ Communion _x__ Brynn exploration ___ ___ Life review _x__ Prayer ___ Reconciliation ___ Sacrament of Sick _x__ Supportive presence ___ Wedding ___ Other (describe below) Pastoral Comments patient gives short summary of long few weeks of intense and complicated illness; pt reports that she has been able to cope with her situation because of Bible reading and listening to old time gospel hymns; pt has strong bahai family support of prayers; pt is talkative but this founder president and ceo limits the visit so patient can be relaxed; prayer is welcomed
[2023-07-10] MEDS: Pramipexole Di-HCl 0.125 MG Tablet PO (19:44)
[2023-07-11] VITALS (15 sets, daily range): BP systolic 98–138; BP diastolic 47–77; PULSE 84–116; RESP 11–20; TEMP 36.4–37.2; O2SAT 89–100; BMI 48.9
[2023-07-11] MEDS: 0.9% Normal Saline (1000mL) 1,000 ML 150 ML IV ×2 (02:12→11:13)
[2023-07-11 03:55] LABS: Absolute Lymphocyte Count 0.65 X10^3/uL (0.83-4.51); Absolute Neutrophil Count 12.6 X10^3/uL (2.0-7.7); Basophil# 0.04 X10^3/uL; Basophil% 0.3 % (0-1); Eosinophil# 0.02 X10^3/uL; Eosinophils% 0.1 % (0-5); Hemoglobin 10.2 g/dL (12.0-15.0); Lymphocyte # 0.65 X10^3/ul (0.83-4.51); Lymphocyte % 4.7 % (19-41); Mean Corpuscular Hgb 28.6 pg (27.0-32.0); Mean Corpuscular Volume 95.2 fL (81-99); Mean Platelet Vol. 11.4 fl (6.2-12.0); Monocyte# 0.45 X10^3/uL; Monocyte% 3.3 % (0-10); NRBC Flagged by Analyzer 0 % (0-5); Neutrophil # 12.55 X10^3/uL (2.7-7.7); Neutrophil % 90.9 % (47-70); Platelet Count 317 K/mm3 (150-450); RBC Distribution Width CV 14.6 % (11.6-14.6); Red Blood Count 3.57 M/mm3 (4.2-5.4); White Blood Count 13.8 K/mm3 (4.4-11.0)
[2023-07-11 04:30] LABS: AST(SGOT) 13 U/L (15-37); Alanine Aminotransfer ALT/SGPT 24 U/L (13-56); Albumin, Serum 2.4 g/dL (3.2-5.0); Alkaline Phosphatase 112 U/L (45-117); Amylase 399 U/L (25-115); Anion Gap 9 (5-15); BUN 24 mg/dL (7-18); BUN/Creat Ratio 14.3 RATIO (10-20); Calcium,Total 7.4 mg/dL (8.5-10.1); Chloride 117 mmol/L (98-107); Creatinine, Serum 1.68 mg/dL (0.55-1.02); EST Glomerular Filtration Rate 31 mL/min (>60); Est Glom Filt Rate - Afr Amer 38 mL/min (>60); Glucose 120 mg/dL (74-106); Lipase 153 U/L (13-75); Phosphorus 3.5 mg/dL (2.5-4.9); Potassium 4.2 mmol/L (3.5-5.1); Protein, Total 6.4 g/dL (6.4-8.2); Sodium Level 145 mmol/L (136-145)
[2023-07-11] MEDS: HYDROmorphone 0.5 MG/0.5 ML SYRINGE IV ×3 (06:25→18:01)
[2023-07-11] MEDS: Piperacil/Tazobactam 3.375 GM in 0.9% Normal Saline (50mL MB+) 50 ML IV ×3 (06:28→22:12)
[2023-07-11] MEDS: SILDENAFIL CITRATE 20 MG TABLET PO ×3 (06:31→22:03)
--- NOTE | 2023-07-11 07:30 | PCM.PN.HOSP ---
Reason for Visit Reason for Visit: Diagnoses Essential (primary) hypertension (07/09/23) Longstanding persistent atrial fibrillation (07/09/23) Chronic diastolic (congestive) heart failure (07/09/23) Pleural effusion, not elsewhere classified (07/09/23) Acute respiratory failure with hypoxia (07/09/23) Biliary acute pancreatitis without necrosis or infection (07/09/23) Drug induced acute pancreatitis without necrosis or infection (07/09/23) Discitis, unspecified, lumbar region (07/09/23) Presence of prosthetic heart valve (07/09/23) Objective Data Objective Data Vital Signs: Vital Signs Temp Pulse Resp BP Pulse Ox O2 Del Method O2 Flow Rate 98 F 84 18 106/60 96 CPAP 2.5 07/11/23 04:00 07/11/23 07:00 07/11/23 07:00 07/11/23 07:00 07/11/23 07:19 07/11/23 07:19 07/11/23 07:19 FiO2 4 07/10/23 08:00 Oxygen Flow Rate (L/min) 2.5 Oxygen Delivery Method CPAP Weight: 303 lb 9.224 oz Body Mass Index (BMI) 48.9 Intake & Output: Intake and Output for Last 24 Hours 07/09/23 07/10/23 07/11/23 23:59 23:59 23:59 Intake Total 2100 / 2100 3337.5 / 3337.5 1077.5 / 1077.5 Output Total 200 / 250 355 / 430 200 / 200 Balance 1900 / 1850 2982.5 / 2907.5 877.5 / 877.5 Lab / Micro Data 07/11/23 03:45 07/11/23 03:45 Labs: Laboratory Results - last 24 hr 07/10/23 04:26: Triglycerides 72, Cholesterol 102, LDL Cholesterol 51, VLDL Cholesterol 14, HDL Cholesterol 37 L, Lipase 679 H 07/11/23 03:45: WBC 13.8 H, RBC 3.57 L, Hgb 10.2 L, Hct 34.0 L, MCV 95.2, MCH 28.6, MCHC 30.0 L, RDW Std Deviation 51.0 H, RDW Coeff of Fariba 14.6, Plt Count 317, MPV 11.4, Immature Gran % (Auto) 0.700, Neut % (Auto) 90.9 H, Lymph % (Auto) 4.7 L, [place] % (Auto) 3.3, Eos % (Auto) 0.1, Baso % (Auto) 0.3, Absolute Neuts (auto) 12.6 H, Absolute Lymphs (auto) 0.65 L, Nucleated RBC % 0, Sodium 145, Potassium 4.2, Chloride 117 H, Carbon Dioxide 19.0 L, Anion Gap 9, BUN 24 H, Creatinine 1.68 H, Estim Creat Clear Calc 25.00, Est GFR (MDRD) Af Amer 38 L, Est GFR (MDRD) Non-Af 31 L, BUN/Creatinine Ratio 14.3, Glucose 120 H, Calcium 7.4 L, Phosphorus 3.5, Magnesium 2.0, Total Bilirubin 0.50, Direct Bilirubin 0.20, AST 13 L, ALT 24, Alkaline Phosphatase 112, Total Protein 6.4, Albumin 2.4 L, Globulin 4.0, Amylase 399 H, Lipase 153 H ABG Data ABG results: ABG 07/10/23 07/10/23 02:40 04:27 Specimen Type ART MERCEDES pH 7.35 Bicarbonate Actual 20.0 L Total CO2 21 Base Excess -6 L O2 Saturation 92 L O2 % 25.0 25.0 ABG pCO2 35.9 ABG pO2 65 L Jose Test Positive VBG pH 7.34 VBG pO2 36 VBG HCO3 21 L VBG Total CO2 22 L VBG O2 Sat (Calc) 66 VBG Base Excess -5 L POC Mix VBG pCO2 Pt Tmp 38.3 L O2 Delivery Device BiPAP Bi Pap EPAP 6 IPAP 12 Crit Call To/Read Back Yes Yes Blood Gas Notified Whom RN RN Blood Gas Notified Time [id number] Clinical Comments OLIVIA Physical Exam Narrative Seen and examined. Patient is found short of breath. She is getting IV fluid 150 mill per hour. IV fluid discontinued. Lasix ordered. On 3 L of oxygen. No fever. Mild leukocytosis. Patient is stated that she had ruptured appendix in 2000 for which she had laparotomy and at that time also her gallbladder had stones but was thought does not need cholecystectomy. Physical exam General: Alert, Oriented x3, Cooperative HEENT: Atraumatic, PERRLA, EOMI, Normocephalic Oral: Oral mucosa dry. No Gingival or Mucosal Lesions/ Ulcerations Neck: Supple, No JVD, Negative Carotid Bruits Lungs: Air entry diminished in bilateral lung bases. Mild coarse crackles right lung base. Shortness of breath and mild hypoxia. Cardiovascular: Regular rate, Regular Rhythm, Normal S1, Normal S2, No murmurs Abdomen: Bowel Sounds sluggish. Tenderness present over epigastric and right upper quadrant. No distention. Mild voluntary guarding. No rigidity. : No dysuria. No renal angle tenderness. No suprapubic tenderness. Extremities: No edema, Capillary Refill Less than 3 Seconds Skin: No rashes, No breakdown Musculoskeletal: No Tenderness to Palpation of Joints or Extremities Neurological: Cranial nerves II-XII grossly intact, DTR 2+/4. No acute focal neurological deficit. Psych/Mental Status: Flat affect. Assessment & Plan Assessment/Plan (1) Acute gallstone pancreatitis: (2) Acute hypoxemic respiratory failure: (3) Chronic diastolic (congestive) heart failure: (4) Essential (primary) hypertension: (5) H/O aortic valve replacement: (6) Longstanding persistent atrial fibrillation: PLAN: Plan 78-year-old female is being admitted in ICU after sudden onset of predominantly severe epigastric and RUQ abdominal pain, low blood pressure 89/43, nausea with dry heaves, sent to ED from infusion center where she was getting vancomycin and Rocephin for history of discitis and high leverage suggestive of acute pancreatitis. No fever. She had 2 BM in the morning on the day of admission #Acute gallstone pancreatitis -Lipase >5000 w/ imaging consistent with pancreatitis. CT abdomen individually reviewed and shows inflammation around gallbladder and pancreas, multiple gallstones with GB wall thickening and pericholecystic fluid suggesting cholecystitis. But gallbladder not distended. Patient was evaluated by surgeon and there is anticipation of laparoscopic surgery after pancreatitis resolved. Hematocrit on admission was 29% currently 34.3. BUN 14. Heart rate and blood pressure in acceptable limit. Hematocrit 29.8 and BUN 14 within acceptable limit. Continue IV fluid. Pain medication Dilaudid. -Patient already on vancomycin and Rocephin for history of discitis, and Rocephin was changed to Zosyn. -N.p.o. IV fluid. 07/11: Mild leukocytosis worse than yesterday. Patient on IV antibiotics. #Recent discitis -ID was consulted and note reviewed. Patient to stop date of vancomycin and ceftriaxone 07/21/2023. Back pain overall much improved. Pancreatitis is a rare reported reaction with ceftriaxone so could be a possible cause. Currently on vancomycin and Zosyn. #Acute hypoxia/Hx chronic HFpEF per documentation/Hx AV bioprosthetic replacement -Patient 75% on room air in ED improved to 92% on 6 L, Currently on 4 L of oxygen. 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 During the day patient improved and is stable for transfer out of ICU. 07/11: Patient visibly looks short of breath. Chest x-ray portable ordered. Lasix 40 mg IV ordered. LUIS ALBERTO on CKD stage IIIb: 07/11: Patient creatinine went up1.68. Her baseline is around 1.2. The patient CT abdomen pelvis with IV contrast on 07/09/2023 so possible contrast related nephrotoxicity but it was 2 days ago. Patient is on IV fluid normal saline but seems fluid overload and lung condition therefore chest x-ray and furosemide ordered. Monitor kidney function further worsening will need nephrology consult. Medications reviewed and does not seem any in nephrotoxic medications. ID prefer to continue vancomycin and Zosyn dose needs to be adjusted. #GERD -Continue PPI #afib -Patient reports chronic A-fib but has had multiple GI bleeds most recently in February so has been taken off of all anticoagulation -She is undergoing evaluation for Watchman which is the ultimate goal #pulmonary HTN: She was started in October 2022 on treprostinil for pulmonary hypertension by Dr. Nelson and dose has gradually been increased. Patient on treprostinil 4.5 mg tablet 3 times a day an additional 0.125 mg on every Saturday until final goal is achieved. Currently it is on hold. I called Dr. Nelson phone and left a voicemail to call back. 07/[address] Nelson yesterday and today but did not call back. Left a voice message #AARTI -On home cpap #Chronic anemia -Does not appear to be acutely bleeding #CKD IIIa: BUNs/creatinine . #DVT ppx: Lovenox subcu Total time of the visit including total time spent in counseling or coordination of care, (more than 50% of the total time, spent in obtaining medical information from nurses and other ancillary care providers,explaining to the patient about labs, imaging, diagnosis and management of active complex medical conditions), multiple consultants, review of labs and imaging is 40 minutes. Charges/Coding Visit Charges Inpatient E&M: 81494 Subs Hosp L3
--- NOTE | 2023-07-11 07:30 | PCM.PN.INT ---
Assessment & Plan Assessment/Plan (1) Acute pancreatitis: QUALIFIERS: Pancreatitis type: drug induced Acute pancreatitis complication: no infection or necrosis Qualified Code(s): K85.30 - Drug induced acute pancreatitis without necrosis or infection (2) Pleural effusion on left: (3) Longstanding persistent atrial fibrillation: (4) Chronic diastolic (congestive) heart failure: PLAN: Plan RECOMMENDATIONS: 1. Wean oxygen as tolerated. Home CPAP with sleep and BiPAP rescue only if needed 2. Continue Dilaudid for pain control 3. Defer to surgery on initiation of p.o. diet 4. Encourage incentive spirometer. Walking oximetry prior to discharge 5. Okay to leave the intensive care unit from my perspective 6. Hemodynamically stable on minimal nasal cannula. Will sign off from a critical care perspective IMPRESSIONS: 1. Acute pancreatitis Unclear etiology from my perspective. Patient does have gallstones noted in the gallbladder, but no obstructing stone noted on CT. Rapidity of escalation and de-escalation of lipase could be found with an obstructing stone that was relieved prior to the CT. Patient also has been receiving penicillins and this has been known to cause pancreatitis. Triglycerides are not suggestive of an etiology. Patient's calcium level does not appear to be high enough to warrant pancreatitis. Liver enzymes are normalized suggesting no ongoing obstruction. Patient appears to be improving rapidly. Defer to surgery on initiation of p.o. diet 2. Acute hypoxic respiratory insufficiency secondary to HFpEF/pulmonary hypertension Patient was requiring significant oxygen requirements initially. It is unclear if this is related to fluid versus splinting associated with problem #1. Patient does have a history of pulmonary hypertension, but I cannot find any right heart catheterization. Clinical suspicion would be patient has an elevated wedge pressure making pulmonary artery pressures less reliable. Okay to initiate diuretics from my perspective. Will need to continue with treprostinil to avoid any rebound hypertension 3. GERD/A-fib/AARTI/anemia/CKD stage IIIa/morbid obesity/advanced age/recent discitis Complicates care, management, recovery and prognosis. Respiratory muscle work is much improved, so patient could use her home CPAP. Low clinical suspicion for development of sepsis Subjective Subjective Patient did well overnight. No acute issues were reported. Patient able to tolerate home CPAP with good saturations. Patient is still having abdominal pain, but feels this is improving. Objective Data Objective Data Vital Signs: Vital Signs Temp Pulse Resp BP Pulse Ox O2 Del Method O2 Flow Rate 36.6 C 84 18 106/60 96 CPAP 2.5 07/11/23 04:00 07/11/23 07:00 07/11/23 07:00 07/11/23 07:00 07/11/23 07:19 07/11/23 07:19 07/11/23 07:19 FiO2 4 07/10/23 08:00 Oxygen Flow Rate (L/min) 2.5 Oxygen Delivery Method CPAP Weight: 137.7 kg Body Mass Index (BMI) 48.9 Intake & Output: Intake and Output for Last 24 Hours 07/09/23 07/10/23 07/11/23 23:59 23:59 23:59 Intake Total 2100 / 2100 3337.5 / 3337.5 1077.5 / 1077.5 Output Total 200 / 250 355 / 430 200 / 200 Balance 1900 / 1850 2982.5 / 2907.5 877.5 / 877.5 Lab / Micro Data Attestation: I reviewed the patient's lab results. 07/11/23 03:45 07/11/23 03:45 Labs: Laboratory Results - last 24 hr 07/10/23 04:26: Triglycerides 72, Cholesterol 102, LDL Cholesterol 51, VLDL Cholesterol 14, HDL Cholesterol 37 L, Lipase 679 H 07/11/23 03:45: WBC 13.8 H, RBC 3.57 L, Hgb 10.2 L, Hct 34.0 L, MCV 95.2, MCH 28.6, MCHC 30.0 L, RDW Std Deviation 51.0 H, RDW Coeff of Fariba 14.6, Plt Count 317, MPV 11.4, Immature Gran % (Auto) 0.700, Neut % (Auto) 90.9 H, Lymph % (Auto) 4.7 L, [place] % (Auto) 3.3, Eos % (Auto) 0.1, Baso % (Auto) 0.3, Absolute Neuts (auto) 12.6 H, Absolute Lymphs (auto) 0.65 L, Nucleated RBC % 0, Sodium 145, Potassium 4.2, Chloride 117 H, Carbon Dioxide 19.0 L, Anion Gap 9, BUN 24 H, Creatinine 1.68 H, Estim Creat Clear Calc 25.00, Est GFR (MDRD) Af Amer 38 L, Est GFR (MDRD) Non-Af 31 L, BUN/Creatinine Ratio 14.3, Glucose 120 H, Calcium 7.4 L, Phosphorus 3.5, Magnesium 2.0, Total Bilirubin 0.50, Direct Bilirubin 0.20, AST 13 L, ALT 24, Alkaline Phosphatase 112, Total Protein 6.4, Albumin 2.4 L, Globulin 4.0, Amylase 399 H, Lipase 153 H ABG Data ABG results: ABG 07/10/23 07/10/23 02:40 04:27 Specimen Type ART MERCEDES pH 7.35 Bicarbonate Actual 20.0 L Total CO2 21 Base Excess -6 L O2 Saturation 92 L O2 % 25.0 25.0 ABG pCO2 35.9 ABG pO2 65 L Jose Test Positive VBG pH 7.34 VBG pO2 36 VBG HCO3 21 L VBG Total CO2 22 L VBG O2 Sat (Calc) 66 VBG Base Excess -5 L POC Mix VBG pCO2 Pt Tmp 38.3 L O2 Delivery Device BiPAP Bi Pap EPAP 6 IPAP 12 Crit Call To/Read Back Yes Yes Blood Gas Notified Whom RN RN Blood Gas Notified Time [id number] Clinical Comments OLIVIA Physical Exam Const alert, oriented x3 and no apparent distress Constitutional Narrative: RASS 0 General Appearance: cooperative; Negative for lethargic HEENT normocephalic, head/scalp atraumatic and moist oral mucous membranes HEENT Narrative: Fair dentition Eyes PERRL, EOMs intact bilaterally, conjunctivae normal and no scleral icterus Eyes Narrative: Glasses in place Neck full ROM and no lymphadenopathy Chest inspection of chest normal Chest Narrative: Right chest port Resp Resp Narrative: Splinting improved Auscultation: diminished lung sounds diffuse; Negative for rales, rhonchi or wheezes Cardio regular rate, S1 normal heart sound, S2 normal heart sound, no rub and no gallops Rhythm: abnormal rhythm irregularly irregular Heart Sounds: murmur GI GI Narrative: Abdominal distention improved Palpation: tender and guarding Extremity General Extremity: edema; Negative for clubbing Skin no rashes or lesions noted Neuro oriented x3, CN's II-XII intact bilaterally and moves all extremities Psych cooperative and affect normal Charges/Coding Visit Charges Inpatient E&M: 29765 Subs Hosp L3
--- NOTE | 2023-07-11 08:04 | NURSING ---
Report called to nurse Wong for pt to be transferred to PCU.
--- NOTE | 2023-07-11 08:18 | PCM.PN.SRG ---
Subjective Subjective Patient states her pain is improved still has some epigastric tenderness. Patient is currently being moved to PCU Objective Data Objective Data Vital Signs: Vital Signs Temp Pulse Resp BP Pulse Ox O2 Del Method O2 Flow Rate 98 F 84 18 106/60 96 CPAP 2.5 07/11/23 04:00 07/11/23 07:00 07/11/23 07:00 07/11/23 07:00 07/11/23 07:19 07/11/23 07:19 07/11/23 07:19 FiO2 4 07/10/23 08:00 Oxygen Flow Rate (L/min) 2.5 Oxygen Delivery Method CPAP Weight: 303 lb 9.224 oz Body Mass Index (BMI) 48.9 Intake & Output: Intake and Output for Last 24 Hours 07/09/23 07/10/23 07/11/23 23:59 23:59 23:59 Intake Total 2100 / 2100 3337.5 / 3337.5 1077.5 / 1077.5 Output Total 200 / 250 355 / 430 200 / 200 Balance 1900 / 1850 2982.5 / 2907.5 877.5 / 877.5 Lab / Micro Data 07/11/23 03:45 07/11/23 03:45 Labs: Laboratory Results - last 24 hr 07/10/23 04:26: Triglycerides 72, Cholesterol 102, LDL Cholesterol 51, VLDL Cholesterol 14, HDL Cholesterol 37 L 07/11/23 03:45: WBC 13.8 H, RBC 3.57 L, Hgb 10.2 L, Hct 34.0 L, MCV 95.2, MCH 28.6, MCHC 30.0 L, RDW Std Deviation 51.0 H, RDW Coeff of Fariba 14.6, Plt Count 317, MPV 11.4, Immature Gran % (Auto) 0.700, Neut % (Auto) 90.9 H, Lymph % (Auto) 4.7 L, Tripp % (Auto) 3.3, Eos % (Auto) 0.1, Baso % (Auto) 0.3, Absolute Neuts (auto) 12.6 H, Absolute Lymphs (auto) 0.65 L, Nucleated RBC % 0, Sodium 145, Potassium 4.2, Chloride 117 H, Carbon Dioxide 19.0 L, Anion Gap 9, BUN 24 H, Creatinine 1.68 H, Estim Creat Clear Calc 25.00, Est GFR (MDRD) Af Amer 38 L, Est GFR (MDRD) Non-Af 31 L, BUN/Creatinine Ratio 14.3, Glucose 120 H, Calcium 7.4 L, Phosphorus 3.5, Magnesium 2.0, Total Bilirubin 0.50, Direct Bilirubin 0.20, AST 13 L, ALT 24, Alkaline Phosphatase 112, Total Protein 6.4, Albumin 2.4 L, Globulin 4.0, Amylase 399 H, Lipase 153 H ABG Data ABG results: ABG 07/10/23 07/10/23 02:40 04:27 Specimen Type ART MERCEDES pH 7.35 Bicarbonate Actual 20.0 L Total CO2 21 Base Excess -6 L O2 Saturation 92 L O2 % 25.0 25.0 ABG pCO2 35.9 ABG pO2 65 L Jose Test Positive VBG pH 7.34 VBG pO2 36 VBG HCO3 21 L VBG Total CO2 22 L VBG O2 Sat (Calc) 66 VBG Base Excess -5 L POC Mix VBG pCO2 Pt Tmp 38.3 L O2 Delivery Device BiPAP Bi Pap EPAP 6 IPAP 12 Crit Call To/Read Back Yes Yes Blood Gas Notified Whom RN RN Blood Gas Notified Time [id number] Clinical Comments OLIVIA Physical Exam Const oriented x3 and no apparent distress Resp normal respiratory effort Cardio regular rate GI soft to palpation GI Narrative: Epigastric tenderness to palpation, no peritoneal signs, mild abdominal distention Assessment & Plan Assessment/Plan (1) Acute pancreatitis: QUALIFIERS: Acute pancreatitis complication: no infection or necrosis Pancreatitis type: drug induced Qualified Code(s): K85.30 - Drug induced acute pancreatitis without necrosis or infection PLAN: Unsure the exact etiology of the pancreatitis as patient did not have abnormal liver functions and could be possibly medication induced. Will continue to follow recommend n.p.o. until pain improves or resolves. Unsure if she will require laparoscopic cholecystectomy to prevent further issues if we believe this is due to the gallstones or if we believe this is drug-induced and she may need to change her antibiotic infusion. Will continue to follow. Discussed with patient she had no further questions this time. Kaelyn Franco M.D. Pager: [phone] [facility] [address] [place] [address], [facility], [address] [place] [address] Office: [phone] Charges/Coding Visit Charges Inpatient E&M: 53911 Subs Hosp L2
[2023-07-11] MEDS: Vancomycin IV 1,000 MG/200 ML BAG 200 MG IV (11:13)
[2023-07-11] MEDS: Pantoprazole Sodium 40 MG Tablet PO (11:24)
[2023-07-11] MEDS: Enoxaparin 30 MG/0.3 ML Syringe SC (11:27)
--- NOTE | 2023-07-11 15:13 | RAD_ITS ---
STUDY: X-RAY CHEST REASON FOR EXAM: Female, 78 years old. SOB TECHNIQUE: Single AP portable view of the chest. COMPARISON: September 24, 2020 FINDINGS: Right chest port with the catheter terminating in the distal SVC. There are interstitial fibrotic changes of the lungs. Mild right lower lobe consolidation with a small parapneumonic effusion is present. Stable aortic root vascular stent. Normal size heart. Normal mediastinum and veronika. Normal visualized pulmonary arteries. There is atherosclerotic calcification of the aortic arch with tortuosity. There are diffuse degenerative changes of the visualized thoracic spine. Normal visualized ribs, clavicles, and shoulders. There is no demonstrated abnormality of the visualized soft tissue structures of the upper abdomen. RAD/Chest 1 View (Portable) IMPRESSION: 1. There are interstitial fibrotic changes of the lungs. Mild right lower lobe consolidation with a small parapneumonic effusion is present. Electronically Signed: Casa Crowley MD at 16:12 [facility] ,
[2023-07-11] MEDS: Furosemide 40 MG/4 ML Vial IV (15:24)
[2023-07-11] MEDS: 0.9% Saline Lock 10 ML Syringe IV ×2 (15:24→18:01)
[2023-07-11] MEDS: Pramipexole Di-HCl 0.125 MG Tablet PO (22:04)
[2023-07-11] MEDS: MELATONIN 3 MG TABLET PO (22:08)
--- NOTE | 2023-07-11 23:25 | CPS ---
Pt on home cpap unit with o2 at 3L bled in
[2023-07-12 04:10] VITALS: BP 169/64; PULSE 103; RESP 18; TEMP 36.8; O2SAT 96
[2023-07-12 06:00] VITALS: BMI 48.9
[2023-07-12] MEDS: SILDENAFIL CITRATE 20 MG TABLET PO ×3 (06:01→20:46)
[2023-07-12] MEDS: Ondansetron 4 MG/2 ML Vial IV (06:07)
[2023-07-12] MEDS: Piperacil/Tazobactam 3.375 GM in 0.9% Normal Saline (50mL MB+) 50 ML IV ×2 (06:10→17:32)
[2023-07-12] MEDS: 0.9% Saline Lock 10 ML Syringe IV (06:10)
--- NOTE | 2023-07-12 07:02 | PCM.PN.SRG ---
Subjective Subjective Patient states abdomen does feel better from yesterday but still has some tenderness in the epigastric Objective Data Objective Data Vital Signs: Vital Signs Temp Pulse Resp BP Pulse Ox O2 Del Method O2 Flow Rate 98.3 F 103 H 18 169/64 H 96 CPAP 3 07/12/23 04:10 07/12/23 04:10 07/12/23 04:10 07/12/23 04:10 07/12/23 04:10 07/12/23 04:16 07/12/23 04:16 FiO2 4 07/10/23 08:00 Oxygen Flow Rate (L/min) 3 Oxygen Delivery Method CPAP Weight: 303 lb 9.224 oz Body Mass Index (BMI) 48.9 Intake & Output: Intake and Output for Last 24 Hours 07/10/23 07/11/23 07/12/23 23:59 23:59 23:59 Intake Total 3337.5 / 3337.5 2862.5 / 2862.5 50 / 50 Output Total 355 / 430 450 / 450 150 / 150 Balance 2982.5 / 2907.5 2412.5 / 2412.5 -100 / -100 Lab / Micro Data 07/11/23 03:45 07/11/23 03:45 Micro: Microbiology 07/09/23 14:05 Blood Culture (Wb) - Port Blood Culture - Preliminary No growth in 48 hours. 07/09/23 13:20 Blood Culture (Wb) - Port Blood Culture - Preliminary No growth in 48 hours. Radiography Diagnostic Testing: Radiology Impression Chest X-Ray 07/11/23 15:13 IMPRESSION: 1. There are interstitial fibrotic changes of the lungs. Mild right lower lobe consolidation with a small parapneumonic effusion is present. Electronically Signed: Casa Crowley MD at 16:12 EST Reading Location ID and State: [facility] / [place] , Service support , Physical Exam Const oriented x3 and no apparent distress Resp normal respiratory effort Cardio regular rate GI soft to palpation GI Narrative: Epigastric tenderness to palpation mild, no peritoneal signs, mild abdominal distention Assessment & Plan Assessment/Plan (1) Acute pancreatitis: QUALIFIERS: Pancreatitis type: drug induced Acute pancreatitis complication: no infection or necrosis Qualified Code(s): K85.30 - Drug induced acute pancreatitis without necrosis or infection PLAN: Unsure the exact etiology of the pancreatitis as patient did not have abnormal liver functions and could be possibly medication induced. Will continue to follow recommend n.p.o. until pain improves/resolves. Kaelyn Franco M.D. Pager: [phone] [facility] [address] [place] [address], [facility], [address] [place] [address] Office: [phone] Charges/Coding Visit Charges Inpatient E&M: 67508 Subs Hosp L2
[2023-07-12 08:50] LABS: Absolute Lymphocyte Count 0.58 X10^3/uL (0.83-4.51); Absolute Neutrophil Count 15.2 X10^3/uL (2.0-7.7); Basophil# 0.05 X10^3/uL; Basophil% 0.3 % (0-1); Eosinophil# 0.02 X10^3/uL; Eosinophils% 0.1 % (0-5); Hematocrit 32.1 % (37-47); Hemoglobin 9.5 g/dL (12.0-15.0); Lymphocyte # 0.58 X10^3/ul (0.83-4.51); Lymphocyte % 3.5 % (19-41); Mean Corp Hgb Conc 29.6 g/dL (32-36); Mean Corpuscular Hgb 28.3 pg (27.0-32.0); Mean Corpuscular Volume 95.5 fL (81-99); Mean Platelet Vol. 11.4 fl (6.2-12.0); Monocyte# 0.47 X10^3/uL; Monocyte% 2.9 % (0-10); NRBC Flagged by Analyzer 0 % (0-5); Neutrophil % 92.2 % (47-70); POSITIVE DIFFERENTIAL YES; Platelet Count 303 K/mm3 (150-450); RBC Distribution Width CV 14.6 % (11.6-14.6); RBC Distribution Width SD 51.3 fl (35.1-43.9); Red Blood Count 3.36 M/mm3 (4.2-5.4); White Blood Count 16.5 K/mm3 (4.4-11.0)
[2023-07-12 08:53] LABS: Differential Indicated SCAN CRITERIA MET
[2023-07-12 09:11] LABS: Vancomycin, Trough Level 20.1 ug/mL (5.0-15.0)
[2023-07-12 09:13] LABS: AST(SGOT) 14 U/L (15-37); Alanine Aminotransfer ALT/SGPT 17 U/L (13-56); Alkaline Phosphatase 174 U/L (45-117); Amylase 161 U/L (25-115); Anion Gap 8 (5-15); BUN 35 mg/dL (7-18); BUN/Creat Ratio 17.2 RATIO (10-20); Bilirubin, Direct 0.18 mg/dL (0.00-0.30); Calcium,Total 7.9 mg/dL (8.5-10.1); Chloride 119 mmol/L (98-107); Creatinine, Serum 2.04 mg/dL (0.55-1.02); EST Glomerular Filtration Rate 25 mL/min (>60); Est Glom Filt Rate - Afr Amer 30 mL/min (>60); Estimated Creatinine Clearance 20.59 ml/min; Globulin 4.2 g/dL (2.2-4.2); Glucose 112 mg/dL (74-106); Lipase 48 U/L (13-75); Potassium 3.9 mmol/L (3.5-5.1); Protein, Total 6.2 g/dL (6.4-8.2); Sodium Level 145 mmol/L (136-145)
[2023-07-12 09:16] LABS: Toxic Granulation 1+
[2023-07-12 09:41] VITALS: O2SAT 94
[2023-07-12 11:07] VITALS: BP 143/53; PULSE 103; RESP 16; TEMP 37.1; O2SAT 94
[2023-07-12] MEDS: Enoxaparin 30 MG/0.3 ML Syringe SC (11:10)
[2023-07-12] MEDS: Lactated Ringers 1,000 ML 75 ML IV (11:14)
[2023-07-12] MEDS: Pantoprazole Sodium 40 MG Tablet PO (11:21)
--- NOTE | 2023-07-12 13:16 | PN.HOSP_ITS ---
Reason for Visit Reason for Visit: Diagnoses Essential (primary) hypertension (07/09/23) Longstanding persistent atrial fibrillation (07/09/23) Chronic diastolic (congestive) heart failure (07/09/23) Pleural effusion, not elsewhere classified (07/09/23) Acute respiratory failure with hypoxia (07/09/23) Biliary acute pancreatitis without necrosis or infection (07/09/23) Drug induced acute pancreatitis without necrosis or infection (07/09/23) Discitis, unspecified, lumbar region (07/09/23) Presence of prosthetic heart valve (07/09/23) Objective Data Objective Data Vital Signs: Vital Signs Temp Pulse Resp BP Pulse Ox O2 Del Method O2 Flow Rate 98.8 F 103 H 16 143/53 H 94 Nasal Cannula 3 07/12/23 11:07 07/12/23 11:07 07/12/23 11:07 07/12/23 11:07 07/12/23 11:07 07/12/23 11:07 07/12/23 11:54 FiO2 4 07/10/23 08:00 Oxygen Flow Rate (L/min) 3 Oxygen Delivery Method Nasal Cannula Weight: 303 lb 9.224 oz Body Mass Index (BMI) 48.9 Intake & Output: Intake and Output for Last 24 Hours 07/10/23 07/11/23 07/12/23 23:59 23:59 23:59 Intake Total 3337.5 / 3337.5 2862.5 / 2862.5 193.75 / 193.75 Output Total 355 / 430 450 / 450 150 / 150 Balance 2982.5 / 2907.5 2412.5 / 2412.5 43.75 / 43.75 Lab / Micro Data 07/12/23 08:32 07/12/23 08:32 Labs: Laboratory Results - last 24 hr 07/12/23 08:32: WBC 16.5 H, RBC 3.36 L, Hgb 9.5 L, Hct 32.1 L, MCV 95.5, MCH 28.3, MCHC 29.6 L, RDW Std Deviation 51.3 H, RDW Coeff of Fariba 14.6, Plt Count 303, MPV 11.4, Immature Gran % (Auto) 1.000 H, Neut % (Auto) 92.2 H, Lymph % (Auto) 3.5 L, [place] % (Auto) 2.9, Eos % (Auto) 0.1, Baso % (Auto) 0.3, Absolute Neuts (auto) 15.2 H, Absolute Lymphs (auto) 0.58 L, Nucleated RBC % 0, Toxic Granulation 1+, Sodium 145, Potassium 3.9, Chloride 119 H, Carbon Dioxide 18.0 L, Anion Gap 8, BUN 35 H, Creatinine 2.04 H, Estim Creat Clear Calc 20.59, Est GFR (MDRD) Af Amer 30 L, Est GFR (MDRD) Non-Af 25 L, BUN/Creatinine Ratio 17.2, Glucose 112 H, Calcium 7.9 L, Total Bilirubin 0.50, Direct Bilirubin 0.18, AST 14 L, ALT 17, Alkaline Phosphatase 174 H, Total Protein 6.2 L, Albumin 2.0 L, Globulin 4.2, Amylase 161 H, Lipase 48, Vancomycin Trough 20.1 H Micro: Microbiology 07/09/23 14:05 Blood Culture (Wb) - Port Blood Culture - Preliminary No growth in 48 hours. 07/09/23 13:20 Blood Culture (Wb) - Port Blood Culture - Preliminary No growth in 48 hours. Radiography Diagnostic Testing: Radiology Impression Chest X-Ray 07/11/23 15:13 IMPRESSION: 1. There are interstitial fibrotic changes of the lungs. Mild right lower lobe consolidation with a small parapneumonic effusion is present. Electronically Signed: Casa Crowley MD at 16:12 EST Reading Location ID and State: [address] [place] [address] , Service support , Physical Exam Narrative Seen and examined. Shortness of breath is better. Patient CPAP.Creatinine went up. Covered Button Maker consulted. Patient had CT contrast but is about 7 L fluid overload Patient is stated that she had ruptured appendix in 2000 for which she had laparotomy and at that time also her gallbladder had stones but was thought does not need cholecystectomy. Physical exam General: Alert, Oriented x3, Cooperative HEENT: Atraumatic, PERRLA, EOMI, Normocephalic Oral: Oral mucosa moist. No Gingival or Mucosal Lesions/ Ulcerations Neck: Supple, No JVD, Negative Carotid Bruits Lungs: Air entry diminished in bilateral lung bases. No crepitations. On CPAP Cardiovascular: Regular rate, Regular Rhythm, Normal S1, Normal S2, No murmurs Abdomen: Bowel Sounds sluggish. Mild tenderness present over epigastric and rig ht upper quadrant. No distention. No rigidity. : No dysuria. No renal angle tenderness. No suprapubic tenderness. Extremities: No edema, Capillary Refill Less than 3 Seconds Skin: No rashes, No breakdown Musculoskeletal: No Tenderness to Palpation of Joints or Extremities Neurological: Cranial nerves II-XII grossly intact, DTR 2+/4. No acute focal neurological deficit. Psych/Mental Status: Flat affect. Assessment & Plan Assessment/Plan (1) Acute gallstone pancreatitis: (2) Acute hypoxemic respiratory failure: (3) Chronic diastolic (congestive) heart failure: (4) Essential (primary) hypertension: (5) H/O aortic valve replacement: (6) Longstanding persistent atrial fibrillation: PLAN: Plan 78-year-old female is being admitted in ICU after sudden onset of predominantly severe epigastric and RUQ abdominal pain, low blood pressure 89/43, nausea with dry heaves, sent to ED from infusion center where she was getting vancomycin and Rocephin for history of discitis and high leverage suggestive of acute pancreatitis. No fever. She had 2 BM in the morning on the day of admission #Acute gallstone pancreatitis -Lipase >5000 w/ imaging consistent with pancreatitis. CT abdomen individually reviewed and shows inflammation around gallbladder and pancreas, multiple gallstones with GB wall thickening and pericholecystic fluid suggesting cholecystitis. But gallbladder not distended. Patient was evaluated by surgeon and there is anticipation of laparoscopic surgery after pancreatitis resolved. Hematocrit on admission was 29% currently 34.3. BUN 14. Heart rate and blood pressure in acceptable limit. Hematocrit 29.8 and BUN 14 within acceptable limit. Continue IV fluid. Pain medication Dilaudid. -Patient already on vancomycin and Rocephin for history of discitis, and Rocephin was changed to Zosyn. -N.p.o. IV fluid. 07/11: Mild leukocytosis worse than yesterday. Patient on IV antibiotics. 07/12 leukocytosis worsening. Patient on IV antibiotics. No fever. Blood culture negative for 48 hours. #Recent discitis -ID was consulted and note reviewed. Patient to stop date of vancomycin and ceftriaxone 07/21/2023. Back pain overall much improved. Pancreatitis is a rare reported reaction with ceftriaxone so could be a possible cause. Currently on vancomycin and Zosyn. #Acute hypoxia/Hx chronic HFpEF per documentation/Hx AV bioprosthetic replacement -Patient 75% on room air in ED improved to 92% on 6 L, Currently on 4 L of ox ygen. -Most recent echo February 2023 with PASP of 70, bioprosthetic aortic valve and EF of 60%, no comment on diastolic function but has documentation in chart of heart failure with preserved ejection fraction -Left pleural effusion noted on CT scan, overall fairly minimal -Patient was put on Ventimask and then BiPAP and research/program director was consulted. During the day patient improved and is stable for transfer out of ICU. 07/11: Patient visibly looks short of breath. Chest x-ray portable ordered. Lasix 40 mg IV ordered. LUIS ALBERTO on CKD stage IIIb: 07/11: Patient creatinine went up1.68. Her baseline is around 1.2. The patient CT abdomen pelvis with IV contrast on 07/09/2023 so possible contrast related nephrotoxicity but it was 2 days ago. Patient is on IV fluid normal saline but seems fluid overload and lung condition therefore chest x-ray and furosemide ordered. Monitor kidney function further worsening will need nephrology consult. Medications reviewed and does not seem any in nephrotoxic medications. ID prefer to continue vancomycin and Zosyn dose needs to be adjusted. 07/12: Creatinine went up to 2.0. BUN 35. Anion gap 8, bicarb 18. Sodium and chloride on higher side. Discussed with the crap shooter. Patient treated for 7 L of positive fluid balance and was short of breath and lung crepitation therefore Lasix 40 mg IV 1 dose was given yesterday. We agreed on just monitoring without giving IV fluids or diuretics. #GERD -Continue PPI #afib -Patient reports chronic A-fib but has had multiple GI bleeds most recently in February so has been taken off of all anticoagulation -She is undergoing evaluation for Watchman which is the ultimate goal #pulmonary HTN: She was started in October 2022 on treprostinil for pulmonary hypertension by Dr. Nelson and dose has gradually been increased. Patient on treprostinil 4.5 mg tablet 3 times a day an additional 0.125 mg on every Saturday until final goal is achieved. Currently it is on hold. I called Dr. Nelson phone and left a voicemail to call back. 07/[address] Nelson yesterday and today but did not call back. Left a voice message #[email or web address] -On home cpap #Chronic anemia -Does not appear to be acutely bleeding #CKD IIIa: BUNs/creatinine . #DVT ppx: Lovenox subcu Total time of the visit including total time spent in counseling or coordination of care, (more than 50% of the total time, spent in obtaining medical information from nurses and other ancillary care providers,explaining to the patient about labs, imaging, diagnosis and management of active complex medical conditions), multiple consultants, review of labs and imaging is 40 minutes. Charges/Coding Visit Charges Inpatient E&M: 92800 Subs Hosp L3
--- NOTE | 2023-07-12 13:35 | PCM.PN.ID ---
Physical Exam Narrative Feeling a little better, less n/v, less abd pain. No fever Const alert and no apparent distress Resp normal air movement and clear to auscultation bilaterally Cardio regular rate and regular rhythm GI soft to palpation and non-distended GI Narrative: mild RUQ soreness Extremity General Extremity: Negative for edema Skin no rashes or lesions noted ID ID: Route of nutrition/ use of supplements: [] Nutritional Intake: [] IV Site: [] Govea Catheter: [] Assessment & Plan Assessment/Plan (1) Acute pancreatitis: QUALIFIERS: Pancreatitis type: drug induced Acute pancreatitis complication: no infection or necrosis Qualified Code(s): K85.30 - Drug induced acute pancreatitis without necrosis or infection (2) Lumbar discitis: PLAN: Had been on vanc/ceftriaxone empirically for lumbar discitis. Stop date 07/21/23, back pain overall much improved. Pancreatitis is a rare reported reaction with ceftriaxone, so it could be a possible cause. On vanc/zosyn here, will continue for now which would also cover for any possible cholecystitis. Some LUIS ALBERTO now, will decrease zosyn to q12h. Will follow
--- NOTE | 2023-07-12 14:31 | CASEMGMT ---
LELE BEGUM NOTE: Per Dr Lynne, pt will be here through the weekend. LELE BEGUM to room. Pt resting in bed. Pt states their daughter has arrived from [id number] and that they have discussed HHC and IV atb infusion @ home w/her. She states that they all have agreed that HHC is not an option. She states she is feeling weak, but she is still planning on returning home. LELE BEGUM informed her that therapy would continue to work w/her while she is in the hospital and to ask for CM if she has any concerns w/returning home. She voices understanding. Bethanie RUIZ RN, CM
--- NOTE | 2023-07-12 14:47 | PCM.RX.CS ---
Consult Antibiotic Management Pharmacy has been consulted to manage selected antiobiotic: Vancomycin Type of Intervention Type of Consult: Follow-up Suspected Infection Suspected Infection: Other Labs Labs: Sodium 145 mmol/L (136-145) 07/12/23 08:32 Potassium 3.9 mmol/L (3.5-5.1) 07/12/23 08:32 Chloride 119 mmol/L (98-107) H 07/12/23 08:32 Carbon Dioxide 18.0 mmol/L (21.0-32.0) L 07/12/23 08:32 Anion Gap 8 (5-15) 07/12/23 08:32 BUN 35 mg/dL (7-18) H 07/12/23 08:32 Creatinine 2.04 mg/dL (0.55-1.02) H 07/12/23 08:32 Est GFR (MDRD) Af Amer 30 mL/min (>60) L 07/12/23 08:32 Est GFR (MDRD) Non-Af 25 mL/min (>60) L 07/12/23 08:32 BUN/Creatinine Ratio 17.2 RATIO (10-20) 07/12/23 08:32 Glucose 112 mg/dL (74-106) H 07/12/23 08:32 Vancomycin Trough 20.1 ug/mL (5.0-15.0) H 07/12/23 08:32 Microbiology Microbiology: Microbiology 07/09/23 14:05 Blood Culture (Wb) - Port Blood Culture - Preliminary No growth in 48 hours. 07/09/23 13:20 Blood Culture (Wb) - Port Blood Culture - Preliminary No growth in 48 hours. Goal Trough Goal Trough: 15-20 mcg/mL Pharmacy Plan for Drug Dosing Pharmacy Plan for Drug Dosing: VANCOMYCIN LEVEL RECEIVED Current Vancomycin Dose: 1000mg q24h (at 0900) Number of Doses Received: x3 of 1000mg dose since she has been admitted (pt was on as an outpatient) Vancomycin Level: 20.1 Hours Since Last Dose: approximately 8 hours since last 1000mg dose Renal Function: SrCr has increased to 2.04 from 1.68 Renal Function Trend: SrCr is increasing Lab/Micro: Vancomycin Plan/Comments: discussed with Dr. Lynne and Dr. Peacock. Plan is to hold current doses and check a random level at 0600 on 07/13/23. Pending Level: 07/13/23 at 0600 (random level) Pharmacy Service will continue to monitor and adjust dosing as required. Follow-Up Labs Follow-Up Labs: Trough: Vancomycin (07/13/23 @ 0600 (random level))
[2023-07-12 17:33] VITALS: BP 155/83; PULSE 104; RESP 18; TEMP 37.1; O2SAT 94
[2023-07-12 20:43] VITALS: BP 157/61; PULSE 103; RESP 20; TEMP 37.2; O2SAT 94
[2023-07-12] MEDS: Pramipexole Di-HCl 0.125 MG Tablet PO (20:43)
[2023-07-13] MEDS: Menthol/Lanolin/Calamine/Znox 113 GM Tube 1 APPLIC TOPICAL ×3 (00:11→22:21)
[2023-07-13] MEDS: Nystatin Powder 15gm Bottle 1 APPLIC TOPICAL (00:12)
[2023-07-13 02:45] VITALS: BP 128/57; PULSE 98; RESP 20; TEMP 36.6; O2SAT 94
[2023-07-13] MEDS: SILDENAFIL CITRATE 20 MG TABLET PO ×3 (05:34→22:23)
[2023-07-13] MEDS: Piperacil/Tazobactam 3.375 GM in 0.9% Normal Saline (50mL MB+) 50 ML IV ×2 (05:35→18:34)
[2023-07-13] MEDS: 0.9% Saline Lock 10 ML Syringe IV (05:40)
[2023-07-13 05:47] LABS: Absolute Lymphocyte Count 0.72 X10^3/uL (0.83-4.51); Absolute Neutrophil Count 15.6 X10^3/uL (2.0-7.7); Basophil# 0.05 X10^3/uL; Basophil% 0.3 % (0-1); Eosinophil# 0.04 X10^3/uL; Eosinophils% 0.2 % (0-5); Hematocrit 29.2 % (37-47); Hemoglobin 8.9 g/dL (12.0-15.0); Lymphocyte # 0.72 X10^3/ul (0.83-4.51); Lymphocyte % 4.2 % (19-41); Mean Corp Hgb Conc 30.5 g/dL (32-36); Mean Corpuscular Hgb 28.3 pg (27.0-32.0); Mean Corpuscular Volume 92.7 fL (81-99); Monocyte# 0.64 X10^3/uL; Monocyte% 3.7 % (0-10); NRBC Flagged by Analyzer 0 % (0-5); Neutrophil # 15.59 X10^3/uL (2.7-7.7); Neutrophil % 90.6 % (47-70); Platelet Count 286 K/mm3 (150-450); RBC Distribution Width CV 14.6 % (11.6-14.6); RBC Distribution Width SD 49.6 fl (35.1-43.9); Red Blood Count 3.15 M/mm3 (4.2-5.4); White Blood Count 17.2 K/mm3 (4.4-11.0)
[2023-07-13 06:00] VITALS: BMI 48.9
[2023-07-13 06:05] LABS: Anion Gap 8 (5-15); BUN 36 mg/dL (7-18); Calcium,Total 7.9 mg/dL (8.5-10.1); Chloride 116 mmol/L (98-107); Creatinine, Serum 1.89 mg/dL (0.55-1.02); EST Glomerular Filtration Rate 27 mL/min (>60); Est Glom Filt Rate - Afr Amer 33 mL/min (>60); Estimated Creatinine Clearance 22.22 ml/min; Glucose 103 mg/dL (74-106); Potassium 3.6 mmol/L (3.5-5.1); Sodium Level 143 mmol/L (136-145)
[2023-07-13 06:07] LABS: Vancomycin, Random Level 16.3 ug/mL (0.0-15.0)
--- NOTE | 2023-07-13 06:30 | PCM.RX.CS ---
Consult Antibiotic Management Pharmacy has been consulted to manage selected antiobiotic: Vancomycin Type of Intervention Type of Consult: Follow-up Labs Labs: Sodium 143 mmol/L (136-145) 07/13/23 05:40 Potassium 3.6 mmol/L (3.5-5.1) 07/13/23 05:40 Chloride 116 mmol/L (98-107) H 07/13/23 05:40 Carbon Dioxide 19.0 mmol/L (21.0-32.0) L 07/13/23 05:40 Anion Gap 8 (5-15) 07/13/23 05:40 BUN 36 mg/dL (7-18) H 07/13/23 05:40 Creatinine 1.89 mg/dL (0.55-1.02) H 07/13/23 05:40 Est GFR (MDRD) Af Amer 33 mL/min (>60) L 07/13/23 05:40 Est GFR (MDRD) Non-Af 27 mL/min (>60) L 07/13/23 05:40 BUN/Creatinine Ratio 19.0 RATIO (10-20) 07/13/23 05:40 Glucose 103 mg/dL (74-106) 07/13/23 05:40 Vancomycin Trough 20.1 ug/mL (5.0-15.0) H 07/12/23 08:32 Random Vancomycin 16.3 ug/mL (0.0-15.0) H 07/13/23 05:40 Microbiology Microbiology: Microbiology 07/09/23 14:05 Blood Culture (Wb) - Port Blood Culture - Preliminary No growth in 48 hours. 07/09/23 13:20 Blood Culture (Wb) - Port Blood Culture - Preliminary No growth in 48 hours. Dosing Weight Weight used for dosin.7 kg Estimated Creatinine Clearance Estimated Creatinine Clearance: 34 Goal Trough Goal Trough: 15-20 mcg/mL Pharmacy Plan for Drug Dosing Pharmacy Plan for Drug Dosing: Random vancomycin level was 16.3. This was about 42 hours since last dose. Will re-start dosing at 1250mg q24h, and will draw a trough prior to third dose of new regimen. Pharmacy Service will continue to monitor and adjust dosing as required. Follow-Up Labs Follow-Up Labs: Trough: Vancomycin Date/Time Labs Ordered Labs to be done on [date and time ordered]: 07/15/23 @[id number]
[2023-07-13] MEDS: Vancomycin HCl 1,250 MG in 0.9% Normal Saline (250mL Bag) 250 ML 167 MG IV (06:53)
--- NOTE | 2023-07-13 07:28 | PCM.CONS.R ---
Assessment & Plan Assessment/Plan (1) Acute kidney injury: (2) Chronic kidney disease, stage 3b: (3) Acute metabolic acidosis: PLAN: Plan Impression/Plan: 78-year-old woman with past history of chronic kidney disease stage G3b, type 2 diabetes mellitus, hypertension, CAD, HFpEF, aortic stenosis status post replacement, atrial fibrillation, pulmonary hypertension on treprostinil, GERD, and iron deficiency anemia. The patient was admitted to the hospital on 07/09/2023 with gallstone pancreatitis. She has also been treated for acute hypoxic respiratory failure attributed to HFpEF with diuresis. Nephrology is following for LUIS ALBERTO on CKD. Acute kidney injury on chronic kidney disease stage G3b. Baseline serum creatinine has been around 1.3 to 1.5 mg/dL prior to this admission. The patient likely has underlying CKD due to diabetic kidney disease. Acute kidney injury is likely due to prerenal azotemia. So far, serum creatinine has peaked at 2.04 mg/dL on 07/12/2023 during this admission. Serum creatinine is a bit better today at 1.89 mg/dL. There was no evidence of urinary tract obstruction on CT abdomen/pelvis on 07/09/2023. I will check urinalysis and urine indices. Although she appears to be volume up on exam with edema of the lower extremities and decreased breath sounds, I do not think her intravascular volume is expanded. In fact, intravascular volume may be on the lower side given her presentation with pancreatitis which can cause third spacing of fluid. Therefore, I do not recommend further diuresis today. However, I would not give her more fluid either. I would recommend letting patient hydrate/take solute on her own today. Will recheck renal function, volume status, electrolytes, and acid-base status again tomorrow. Acute metabolic acidosis. Historically, serum bicarbonate level has been around 22 to 23 mmol/L prior to this admission. Serum bicarbonate level has been between 18 and 19 mmol/L during this admission. I suspect that acute metabolic acidosis may be due to LUIS ALBERTO on CKD and loose bowel movements. There is no need to add sodium bicarbonate supplementation at this point. We will monitor serum bicarbonate level. HPI Consult Data Date of Consult: 07/13/23 HPI Narrative Reason for Consultation: Acute kidney injury HPI Narrative: KAMI ROLLE is a 78-year-old woman with past history of type 2 diabetes mellitus, hypertension, CAD, HFpEF, aortic stenosis status post replacement, atrial fibrillation, pulmonary hypertension on treprostinil, GERD, and iron deficiency anemia. The patient presented to hospital on 07/08/2023 with abdominal pain. The patient was found to have gallstone pancreatitis. She is being treated with antibiotic including vancomycin and piperacillin?tazobactam. During this admission, the patient also been treated for acute hypoxic respiratory failure with increasing oxygen requirement. She was found to have left pleural effusion on imaging study. On 07/11, the patient was given 40 mg dose of IV furosemide. Nephrology is asked see the patient because of rising serum creatinine during this admission. The patient does have history of CKD with baseline serum creatinine between 1.3 to 1.5 mg/dL. The patient presented to hospital with serum creatinine of 1.11 mg/dL on 07/08/2023. Serum creatinine has steadily increased between 07/08/2023 until 07/12/2023 up to 2.04 mg/dL. The patient denies dyspnea today. There is no chest pain, or vomiting. She does have occasional nausea. The patient has also has chronic loose bowel movements since she has been on treprostinil. Her abdominal pain is better today. The patient has chronic lower extremity edema which has not any worse than usual. 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 Longstanding persistent atrial fibrillation Morbid obesity Non-ST elevation (NSTEMI) myocardial infarction (12/09/16) Nonobstructive atherosclerosis of coronary artery Nonrheumatic aortic (valve) stenosis Nonrheumatic mitral (valve) insufficiency Nonrheumatic tricuspid (valve) insufficiency Osteopenia Other secondary pulmonary hypertension Presence of IVC filter (09/2018) Sepsis secondary to UTI 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 Type 2 diabetes mellitus Home Medications ropinirole 0.25 mg tablet 0.25 mg PO QHS RESTLESS LEGS 11/18/17 [History Last Taken 07/08/23] sildenafil (pulm.hypertension) 20 mg tablet 20 mg PO TID PULMONARY HTN 11/18/17 [History Last Taken 07/09/23] magnesium 250 mg tablet 250 mg PO DAILY SUPPLEMENT 10/09/18 [History Last Taken 07/09/23] ferrous sulfate 325 mg (65 mg iron) tablet (Melissa-Time) 325 mg PO BID SUPPLEMENT 04/14/19 [History Last Taken 07/09/23] ascorbic acid (vitamin C) 500 mg capsule 500 mg PO DAILY SUPPLEMENT 05/10/20 [History Last Taken 07/09/23] cyanocobalamin (vitamin B-12) 2,500 mcg sublingual lozenge 2,500 mcg sublingual QODAY SUPPLEMENT 05/10/20 [History Last Taken 07/09/23] pantoprazole 40 mg tablet,delayed release 40 mg PO DAILY ACID REFLUX 03/06/21 [History Last Taken 07/08/23] amlodipine 10 mg tablet 10 mg PO DAILY BLOOD PRESSURE #90 tabs 06/27/22 [Rx Last Taken 07/09/23] treprostinil diolamine 0.125 mg tablet,extended release (Orenitram) 0.125 mg PO SA PULMONARY HTN 04/09/23 [History Last Taken Unknown] aspirin 81 mg tablet,delayed release (Adult Aspirin Regimen) 81 mg PO DAILY 06/27/23 [History Last Taken Unknown] lisinopril 5 mg tablet 5 mg PO DAILY BLOOD PRESSURE 07/09/23 [History Last Taken 07/09/23] treprostinil diolamine 1 mg tablet,extended release (Orenitram) 4.5 mg PO TID PULMONARY HTN 07/09/23 [History Last Taken Unknown] Allergy/AdvReac Type Severity Reaction Status Date / Time pravastatin AdvReac Severe severe Verified 07/09/23 11:02 muscle and joint pain Family History Mother , age 83 Uterine cancer Hypertension Father , age 81 Heart disease Diabetes CAD (coronary artery disease) Hypertension Surgical History coil embolization of colonic artery H/O aortic valve replacement (09/15/18) History of appendectomy History of hysterectomy History of left heart catheterization (LHC) (04/10/17) History of root canal procedure Status post right foot surgery Social History household members: spouse housing: house Smoking Status: Never smoker alcohol intake: never substance use type: does not use caffeine: No what type of physical activity do you participate in: none divina/rastafarian: Mennonite seatbelt use: always do you feel safe at home: Yes ROS ROS Narrative ROS is as per HPI. Review of systems are otherwise noncontributory. Physical Exam Narrative General: Alert and oriented x3, NAD. HEENT: Normocephalic, atraumatic. Mucous membrane moist without erythema. PERRLA, EOMI. Hearing is intact. Neck: Supple, no JVD. Trachea is midline. No thyromegaly or lymphadenopathy. Cardiovascular: Normal S1, S2. No rubs, murmurs, or gallops. Respiratory: Lungs sound is decreased at bases. No wheezing, rhonchi, or rales. Abdomen: Normal bowel sounds, soft, nontender, no guarding or rebound, no organomegaly. Extremities: No clubbing or cyanosis. There is 1+ edema of the lower extremities bilaterally Musculoskeletal: Full passive range of motion, no joint swelling. Psychiatric: Normal mood and affect. Skin: Warm and dry, no rash. Neurologic: Cranial nerve II to XII are grossly intact. No focal neurologic deficits. Lab / Micro Data 07/13/23 05:40 07/13/23 05:40 Labs: Laboratory Results - last 24 hr 07/12/23 08:32: WBC 16.5 H, RBC 3.36 L, Hgb 9.5 L, Hct 32.1 L, MCV 95.5, MCH 28.3, MCHC 29.6 L, RDW Std Deviation 51.3 H, RDW Coeff of Fariba 14.6, Plt Count 303, MPV 11.4, Immature Gran % (Auto) 1.000 H, Neut % (Auto) 92.2 H, Lymph % (Auto) 3.5 L, [place] % (Auto) 2.9, Eos % (Auto) 0.1, Baso % (Auto) 0.3, Absolute Neuts (auto) 15.2 H, Absolute Lymphs (auto) 0.58 L, Nucleated RBC % 0, Toxic Granulation 1+, Sodium 145, Potassium 3.9, Chloride 119 H, Carbon Dioxide 18.0 L, Anion Gap 8, BUN 35 H, Creatinine 2.04 H, Estim Creat Clear Calc 20.59, Est GFR (MDRD) Af Amer 30 L, Est GFR (MDRD) Non-Af 25 L, BUN/Creatinine Ratio 17.2, Glucose 112 H, Calcium 7.9 L, Total Bilirubin 0.50, Direct Bilirubin 0.18, AST 14 L, ALT 17, Alkaline Phosphatase 174 H, Total Protein 6.2 L, Albumin 2.0 L, Globulin 4.2, Amylase 161 H, Lipase 48, Vancomycin Trough 20.1 H 07/13/23 05:40: WBC 17.2 H, RBC 3.15 L, Hgb 8.9 L, Hct 29.2 L, MCV 92.7, MCH 28.3, MCHC 30.5 L, RDW Std Deviation 49.6 H, RDW Coeff of Fariba 14.6, Plt Count 286, MPV 11.0, Immature Gran % (Auto) 1.000 H, Neut % (Auto) 90.6 H, Lymph % (Auto) 4.2 L, [place] % (Auto) 3.7, Eos % (Auto) 0.2, Baso % (Auto) 0.3, Absolute Neuts (auto) 15.6 H, Absolute Lymphs (auto) 0.72 L, Nucleated RBC % 0, Sodium 143, Potassium 3.6, Chloride 116 H, Carbon Dioxide 19.0 L, Anion Gap 8, BUN 36 H, Creatinine 1.89 H, Estim Creat Clear Calc 22.22, Est GFR (MDRD) Af Amer 33 L, Est GFR (MDRD) Non-Af 27 L, BUN/Creatinine Ratio 19.0, Glucose 103, Calcium 7.9 L, Random Vancomycin 16.3 H
--- NOTE | 2023-07-13 08:51 | PCM.PN.SRG ---
Subjective Subjective Patient is white blood cell counts going up to 17 from 16 yesterday. Patient's creatinine is back down some to 1.8 from 2, patient did have clears yesterday and this morning denies any nausea denies pain unless she moves. Objective Data Objective Data Vital Signs: Vital Signs Temp Pulse Resp BP Pulse Ox O2 Del Method O2 Flow Rate 97.8 F 98 20 H 128/57 H 94 CPAP 3 07/13/23 02:45 07/13/23 02:45 07/13/23 02:45 07/13/23 02:45 07/13/23 02:45 07/13/23 02:50 07/13/23 02:50 FiO2 4 07/10/23 08:00 Oxygen Flow Rate (L/min) 3 Oxygen Delivery Method CPAP Weight: 303 lb 9.224 oz Body Mass Index (BMI) 48.9 Intake & Output: Intake and Output for Last 24 Hours 07/11/23 07/12/23 07/13/23 23:59 23:59 23:59 Intake Total 2862.5 / 2862.5 483.75 / 683.75 400 / 400 Output Total 450 / 450 450 / 575 275 / 275 Balance 2412.5 / 2412.5 33.75 / 108.75 125 / 125 Lab / Micro Data 07/14/23 05:04 07/14/23 05:04 Labs: Laboratory Results - last 24 hr 07/12/23 08:32: WBC 16.5 H, RBC 3.36 L, Hgb 9.5 L, Hct 32.1 L, MCV 95.5, MCH 28.3, MCHC 29.6 L, RDW Std Deviation 51.3 H, RDW Coeff of Fariba 14.6, Plt Count 303, MPV 11.4, Immature Gran % (Auto) 1.000 H, Neut % (Auto) 92.2 H, Lymph % (Auto) 3.5 L, Pima % (Auto) 2.9, Eos % (Auto) 0.1, Baso % (Auto) 0.3, Absolute Neuts (auto) 15.2 H, Absolute Lymphs (auto) 0.58 L, Nucleated RBC % 0, Toxic Granulation 1+, Sodium 145, Potassium 3.9, Chloride 119 H, Carbon Dioxide 18.0 L, Anion Gap 8, BUN 35 H, Creatinine 2.04 H, Estim Creat Clear Calc 20.59, Est GFR (MDRD) Af Amer 30 L, Est GFR (MDRD) Non-Af 25 L, BUN/Creatinine Ratio 17.2, Glucose 112 H, Calcium 7.9 L, Total Bilirubin 0.50, Direct Bilirubin 0.18, AST 14 L, ALT 17, Alkaline Phosphatase 174 H, Total Protein 6.2 L, Albumin 2.0 L, Globulin 4.2, Amylase 161 H, Lipase 48, Vancomycin Trough 20.1 H 07/13/23 05:40: WBC 17.2 H, RBC 3.15 L, Hgb 8.9 L, Hct 29.2 L, MCV 92.7, MCH 28.3, MCHC 30.5 L, RDW Std Deviation 49.6 H, RDW Coeff of Fariba 14.6, Plt Count 286, MPV 11.0, Immature Gran % (Auto) 1.000 H, Neut % (Auto) 90.6 H, Lymph % (Auto) 4.2 L, Pima % (Auto) 3.7, Eos % (Auto) 0.2, Baso % (Auto) 0.3, Absolute Neuts (auto) 15.6 H, Absolute Lymphs (auto) 0.72 L, Nucleated RBC % 0, Sodium 143, Potassium 3.6, Chloride 116 H, Carbon Dioxide 19.0 L, Anion Gap 8, BUN 36 H, Creatinine 1.89 H, Estim Creat Clear Calc 22.22, Est GFR (MDRD) Af Amer 33 L, Est GFR (MDRD) Non-Af 27 L, BUN/Creatinine Ratio 19.0, Glucose 103, Calcium 7.9 L, Random Vancomycin 16.3 H Micro: Microbiology 07/09/23 14:05 Blood Culture (Wb) - Port Blood Culture - Preliminary No growth in 48 hours. 07/09/23 13:20 Blood Culture (Wb) - Port Blood Culture - Preliminary No growth in 48 hours. Physical Exam Const oriented x3 and no apparent distress Resp normal respiratory effort Cardio regular rate GI soft to palpation GI Narrative: Epigastric/upper quadrant tenderness to palpation, no peritoneal signs, mild abdominal distention Assessment & Plan Assessment/Plan (1) Acute pancreatitis: QUALIFIERS: Acute pancreatitis complication: no infection or necrosis Pancreatitis type: drug induced Qualified Code(s): K85.30 - Drug induced acute pancreatitis without necrosis or infection PLAN: Unsure the exact etiology of the pancreatitis as patient did not have abnormal liver functions and could be possibly medication induced. recommend N.p.o. as patient is still having abdominal pain. Also with a increasing white blood cell count discussed with Dr. Lynne for workup including CAT scan however due to her kidney function finally improving we will try a noncontrasted CAT scan knowing that it will not give us quite as good of a picture as well as x-ray and blood cultures. On IV Zosyn & vanco per primary Kaelyn Franco M.D. Pager: [phone] [facility] [address] [place] [address], [facility], [address] [place] [address] Office: [phone]
[2023-07-13 09:04] VITALS: BP 122/47; PULSE 96; RESP 16; TEMP 36.9; O2SAT 93
[2023-07-13] MEDS: Enoxaparin 30 MG/0.3 ML Syringe SC (09:20)
[2023-07-13] MEDS: Pantoprazole Sodium 40 MG Tablet PO (09:20)
[2023-07-13 09:55] LABS: Color, Urine Yellow (Yellow); Glucose, Dipstick Normal (Normal); Ketone-Dipstick Negative (Negative); Leukocyte Esterase-Dipstick 500 /ul (Negative); Nitrite-Dipstick Negative (Negative); Occult Blood-Urine 25 /ul (Negative); Protein-Dipstick 100 mg/dl (Negative); Urine Bilirubin Dipstick Negative (Negative); Urine Clarity Cloudy (Clear); Urine Urobilinogen Normal (Normal)
[2023-07-13 10:04] LABS: Amorphous Sediment 1+; Bacteria 1+ /hpf (None Seen); Mucous, Urine 1+ /hpf (<or=2+); Red Blood Cells-Urine 0-5 SEEN /hpf (0-5); Squamous Epithelial Cells - UA 0-5 SEEN /hpf (5-10); White Blood Cells 10-25 SEEN /hpf (0-5); Yeast-Urine RARE /hpf (None Seen)
[2023-07-13 10:09] LABS: Urine Sodium 5 mmol/L (Not Establ.)
--- NOTE | 2023-07-13 11:16 | CT_ITS ---
ACR Level 3 findings have been noted. An addendum which confirms receipt of the report will follow. STUDY: CT ABDOMEN AND PELVIS WITHOUT CONTRAST REASON FOR EXAM: Female, 78 years old. ABDOMINAL PAIN, PANCREATITIS RADIATION DOSAGE (If Supplied By Facility): CTDIvol = ( 22.90 ) mGy, DLP = ( 1287.15 ) mGycm TECHNIQUE: Transaxial images were obtained from the dome of the diaphragm to the symphysis pubis without oral contrast, and without intravenous contrast. Sagittal and coronal images were reconstructed. Individualized dose optimization techniques were used for this CT. COMPARISON: July 09, 2023 FINDINGS: There is bilateral lower lung consolidation and pleural effusions. There are coronary artery calcifications. There is aortic valve prosthesis. There is cardiac enlargement. There is a diffuse contour abnormality of the liver consistent with cirrhotic changes. There are multiple gallstones. Normal spleen. Normal pancreas. Normal bilateral adrenal glands. Normal right kidney. Normal left kidney. Normal visualized stomach. Normal small intestine. Normal colon. There is non-visualization of the appendix. There is atherosclerotic calcification of the abdominal aorta, without a demonstrated aneurysm. Normal inferior vena cava. Normal retroperitoneum. There is Govea catheter in the urinary bladder. There is absence of the uterus consistent with a prior hysterectomy. There is moderate free fluid in the abdomen and pelvis Normal abdominal wall. There is levoscoliosis with degenerative change of the spine. There is endplate irregularity at L2-[address]/Abdomen/Pelvis without Cont IMPRESSION: Multiple gallstones. Increased ascites in the abdomen and pelvis. Colonic diverticulosis. No obstruction. Lower lung consolidation and pleural effusions. Degenerative change of the spine. Endplate irregularity at L2-3 on the right with potential discitis/osteomyelitis. MRI recommended for further evaluation. Electronically Signed: Amador Guo MD at 14:15 [facility] ,
--- NOTE | 2023-07-13 11:45 | PCM.PN.HOSP ---
Reason for Visit Reason for Visit: Diagnoses Acute metabolic acidosis (07/09/23) Essential (primary) hypertension (07/09/23) Longstanding persistent atrial fibrillation (07/09/23) Chronic diastolic (congestive) heart failure (07/09/23) Pleural effusion, not elsewhere classified (07/09/23) Acute respiratory failure with hypoxia (07/09/23) Biliary acute pancreatitis without necrosis or infection (07/09/23) Drug induced acute pancreatitis without necrosis or infection (07/09/23) Discitis, unspecified, lumbar region (07/09/23) Acute kidney failure, unspecified (07/09/23) Chronic kidney disease, stage 3b (07/09/23) Presence of prosthetic heart valve (07/09/23) Objective Data Objective Data Vital Signs: Vital Signs Temp Pulse Resp BP Pulse Ox O2 Del Method O2 Flow Rate 98.4 F 96 16 122/47 H 93 CPAP 3 07/13/23 09:04 07/13/23 09:04 07/13/23 09:04 07/13/23 09:04 07/13/23 09:04 07/13/23 09:41 07/13/23 02:50 FiO2 4 07/10/23 08:00 Oxygen Flow Rate (L/min) 3 Oxygen Delivery Method CPAP Weight: 303 lb 9.224 oz Body Mass Index (BMI) 48.9 Intake & Output: Intake and Output for Last 24 Hours 07/11/23 07/12/23 07/13/23 23:59 23:59 23:59 Intake Total 2862.5 / 2862.5 483.75 / 683.75 725 / 725 Output Total 450 / 450 450 / 575 275 / 275 Balance 2412.5 / 2412.5 33.75 / 108.75 450 / 450 Lab / Micro Data 07/13/23 05:40 07/13/23 05:40 Labs: Laboratory Results - last 24 hr 07/13/23 05:40: WBC 17.2 H, RBC 3.15 L, Hgb 8.9 L, Hct 29.2 L, MCV 92.7, MCH 28.3, MCHC 30.5 L, RDW Std Deviation 49.6 H, RDW Coeff of Fariba 14.6, Plt Count 286, MPV 11.0, Immature Gran % (Auto) 1.000 H, Neut % (Auto) 90.6 H, Lymph % (Auto) 4.2 L, Edgar % (Auto) 3.7, Eos % (Auto) 0.2, Baso % (Auto) 0.3, Absolute Neuts (auto) 15.6 H, Absolute Lymphs (auto) 0.72 L, Nucleated RBC % 0, Sodium 143, Potassium 3.6, Chloride 116 H, Carbon Dioxide 19.0 L, Anion Gap 8, BUN 36 H, Creatinine 1.89 H, Estim Creat Clear Calc 22.22, Est GFR (MDRD) Af Amer 33 L, Est GFR (MDRD) Non-Af 27 L, BUN/Creatinine Ratio 19.0, Glucose 103, Calcium 7.9 L, Random Vancomycin 16.3 H 07/13/23 09:30: Urine Color Yellow, Urine Clarity Cloudy, Urine pH 6.0, Ur Specific Magnet 1.020, Urine Protein 100 H, Urine Glucose (UA) Normal, Urine Ketones Negative, Urine Occult Blood 25 H, Urine Nitrite Negative, Urine Bilirubin Negative, Urine Urobilinogen Normal, Ur Leukocyte Esterase 500 H, Urine RBC 0-5 SEEN, Urine WBC 10-25 SEEN, Ur Squamous Epith Cells 0-5 SEEN, Amorphous Sediment 1+, Urine Bacteria 1+, Urine Mucus 1+, Urine Yeast RARE, Ur Random Sodium 5, Urine Creatinine 190.00 Micro: Microbiology 07/09/23 14:05 Blood Culture (Wb) - Port Blood Culture - Preliminary No growth in 48 hours. 07/09/23 13:20 Blood Culture (Wb) - Port Blood Culture - Preliminary No growth in 48 hours. Physical Exam Narrative Seen and examined. Seen and examined. Patient states her shortness of breath is same but may be little improvement since admission. Still complain of abdominal pain right upper quadrant and epigastric/umbilical region. Patient having diarrhea 4-5 bowel movements loose consistency last evening and night. No fever. Physical exam General: Alert, Oriented x3, Cooperative HEENT: Atraumatic, PERRLA, EOMI, Normocephalic Oral: Oral mucosa moist. No Gingival or Mucosal Lesions/ Ulcerations Neck: Supple, No JVD, Negative Carotid Bruits Lungs: Air entry diminished in bilateral lung bases. No crepitations. On CPAP Cardiovascular: Regular rate, Regular Rhythm, Normal S1, Normal S2, No murmurs Abdomen: Bowel Sounds sluggish. Mild tenderness present over epigastric and right upper quadrant. No distention. No rigidity. : No dysuria. No renal angle tenderness. No suprapubic tenderness. Extremities: No edema, Capillary Refill Less than 3 Seconds Skin: No rashes, No breakdown Musculoskeletal: No Tenderness to Palpation of Joints or Extremities Neurological: Cranial nerves II-XII grossly intact, DTR 2+/4. No acute focal neurological deficit. Psych/Mental Status: Flat affect. Assessment & Plan Assessment/Plan (1) Acute gallstone pancreatitis: (2) Acute hypoxemic respiratory failure: (3) Chronic diastolic (congestive) heart failure: (4) Essential (primary) hypertension: (5) H/O aortic valve replacement: (6) Longstanding persistent atrial fibrillation: PLAN: Plan 78-year-old female is being admitted in ICU after sudden onset of predominantly severe epigastric and RUQ abdominal pain, low blood pressure 89/43, nausea with dry heaves, sent to ED from infusion center where she was getting vancomycin and Rocephin for history of discitis and high leverage suggestive of acute pancreatitis. No fever. She had 2 BM in the morning on the day of admission #Acute gallstone pancreatitis -Lipase >5000 w/ imaging consistent with pancreatitis. CT abdomen individually reviewed and shows inflammation around gallbladder and pancreas, multiple gallstones with GB wall thickening and pericholecystic fluid suggesting cholecystitis. But gallbladder not distended. Patient was evaluated by surgeon and there is anticipation of laparoscopic surgery after pancreatitis resolved. Hematocrit on admission was 29% currently 34.3. BUN 14. Heart rate and blood pressure in acceptable limit. Hematocrit 29.8 and BUN 14 within acceptable limit. Continue IV fluid. Pain medication Dilaudid. -Patient already on vancomycin and Rocephin for history of discitis, and Rocephin was changed to Zosyn. -N.p.o. IV fluid. 07/11: Mild leukocytosis worse than yesterday. Patient on IV antibiotics. 07/12 leukocytosis worsening. Patient on IV antibiotics. No fever. Blood culture negative for 48 hours. 07/13: Patient does not have fever but leukocytosis worsening. Gradually went worse from normal to 17.2 thousand. She is covered with antibiotics vancomycin and Zosyn unclear whether it is from medication or other inflammatory condition. CT abdomen without contrast ordered. Discussed with the surgeon. #Recent discitis -ID was consulted and note reviewed. Patient to stop date of vancomycin and ceftriaxone 07/21/2023. Back pain overall much improved. Pancreatitis is a rare reported reaction with ceftriaxone so could be a possible cause. Currently on vancomycin and Zosyn. #Acute hypoxia/Hx chronic HFpEF per documentation/Hx AV bioprosthetic replacement -Patient 75% on room air in ED improved to 92% on 6 L, Currently on 4 L of oxygen. -Most recent echo February 2023 with PASP of 70, bioprosthetic aortic valve and EF of 60%, no comment on diastolic function but has documentation in chart of heart failure with preserved ejection fraction -Left pleural effusion noted on CT scan, overall fairly minimal -Patient was put on Ventimask and then BiPAP and auto seat cover installer was consulted. During the day patient improved and is stable for transfer out of ICU. 07/11: Patient visibly looks short of breath. Chest x-ray portable ordered. Lasix 40 mg IV ordered. 07/13: Repeat chest x-ray PA and lateral ordered. No maggie crepitations on auscultation. LUIS ALBERTO on CKD stage IIIb: 07/11: Patient creatinine went up1.68. Her baseline is around 1.2. The patient CT abdomen pelvis with IV contrast on 07/09/2023 so possible contrast related nephrotoxicity but it was 2 days ago. Patient is on IV fluid normal saline but seems fluid overload and lung condition therefore chest x-ray and furosemide ordered. Monitor kidney function further worsening will need nephrology consult. Medications reviewed and does not seem any in nephrotoxic medications. ID prefer to continue vancomycin and Zosyn dose needs to be adjusted. 07/12: Creatinine went up to 2.0. BUN 35. Anion gap 8, bicarb 18. Sodium and chloride on higher side. Discussed with the journeyman carpenter. Patient treated for 7 L of positive fluid balance and was short of breath and lung crepitation therefore Lasix 40 mg IV 1 dose was given yesterday. We agreed on just monitoring without giving IV fluids or diuretics. 07/13: Creatinine seems better. Discussed with the journeyman carpenter. Total positive 7.7 L positive fluid balance. Urine output about 450 mL. Urine electrolytes ordered. #GERD -Continue PPI #afib -Patient reports chronic A-fib but has had multiple GI bleeds most recently in February so has been taken off of all anticoagulation -She is undergoing evaluation for Watchman which is the ultimate goal patient is still in A-fib. #pulmonary HTN: She was started in October 2022 on treprostinil for pulmonary hypertension by Dr. Nelson and dose has gradually been increased. Patient on treprostinil 4.5 mg tablet 3 times a day an additional 0.125 mg on every Saturday until final goal is achieved. Currently it is on hold. I called Dr. Nelson phone and left a voicemail to call back. 07/[address] Nelson yesterday and today but did not call back. Left a voice message 07/13: Discussed with our mica paster, Dr. Cartagena. Cannot discontinue treprostinil as patient can have rebound pulmonary hypertension with risk of cardiac arrest. #AARTI -On home cpap #Chronic anemia -Does not appear to be acutely bleeding 07/13: Hemoglobin slight drop to 8.9 from baseline around 10.2. Monitor CBC. Patient had recent iron work-up on April 2023 which shows iron 48, TIBC low normal at 268 iron saturation 18% and ferritin 197 suggestive of inflammatory anemia/anemia of chronic disease. #DVT ppx: Lovenox subcu Total time of the visit including total time spent in counseling or coordination of care, (more than 50% of the total time, spent in obtaining medical information from nurses and other ancillary care providers,explaining to the patient about labs, imaging, diagnosis and management of active complex medical conditions), multiple consultants, review of labs and imaging is 45 minutes. Charges/Coding Visit Charges Inpatient E&M: 80818 [facility] L3
--- NOTE | 2023-07-13 12:10 | RAD_ITS ---
HISTORY: SOB. TECHNIQUE: XR Chest 2 Views. COMPARISON: 07/11/2023. FINDINGS: LINES/TUBES: Right chest wall port with catheter tip at the superior cavoatrial junction again seen. Surgical clips in the region of the stomach. CARDIOMEDIASTINAL BORDERS: Stable with borderline enlargement and aortic valve replacement. LUNGS: Persistent mild interstitial and bibasilar opacities. PLEURA: Mild pleural effusions. RAD/Chest PA and Lateral IMPRESSION: No significant interval change. Electronically Signed: Fozia Brady MD at 13:15 EST ,
[2023-07-13 12:35] LABS: Procalcitonin 0.58 ng/mL (0.00-0.09)
[2023-07-13 12:39] LABS: Platelet Count 333 K/mm3 (150-450); RET-HE 24.5 pg (30-35); Reticulocyte Count 2.23 % (0.5-1.5)
[2023-07-13 12:41] LABS: LDH 250 U/L (84-246)
[2023-07-13 14:52] VITALS: BP 151/50; PULSE 97; RESP 16; TEMP 36.8; O2SAT 94
[2023-07-13 15:44] LABS: Protein, Urine (Random) 234.7 mg/dL (<11.9); Protein:Creat Ratio 1365 mg/g CRE (0-200); Urine Chloride < 10 mmol/L (Not Establ.); Urine Sodium 10 mmol/L (Not Establ.)
[2023-07-13 16:54] LABS: Osmolality, Urine 482 mOsm/KG
[2023-07-13 19:35] VITALS: BP 131/56; PULSE 97; RESP 18; TEMP 37.6; O2SAT 95
[2023-07-13] MEDS: Pramipexole Di-HCl 0.125 MG Tablet PO (22:21)
[2023-07-13 22:30] VITALS: BP 112/54; PULSE 98; RESP 18; TEMP 37.2; O2SAT 94
[2023-07-14 03:10] VITALS: BP 150/63; PULSE 91; RESP 18; TEMP 37.2; O2SAT 94
[2023-07-14] MEDS: Piperacil/Tazobactam 3.375 GM in 0.9% Normal Saline (50mL MB+) 50 ML IV ×2 (05:16→17:16)
[2023-07-14] MEDS: SILDENAFIL CITRATE 20 MG TABLET PO ×3 (05:20→20:19)
[2023-07-14 05:33] LABS: Absolute Lymphocyte Count 0.72 X10^3/uL (0.83-4.51); Basophil# 0.07 X10^3/uL; Basophil% 0.4 % (0-1); Eosinophil# 0.06 X10^3/uL; Eosinophils% 0.4 % (0-5); Hematocrit 29.1 % (37-47); Hemoglobin 8.8 g/dL (12.0-15.0); Lymphocyte # 0.72 X10^3/ul (0.83-4.51); Lymphocyte % 4.3 % (19-41); Mean Corp Hgb Conc 30.2 g/dL (32-36); Mean Corpuscular Hgb 28.4 pg (27.0-32.0); Mean Corpuscular Volume 93.9 fL (81-99); Mean Platelet Vol. 11.4 fl (6.2-12.0); Monocyte# 0.58 X10^3/uL; Monocyte% 3.5 % (0-10); NRBC Flagged by Analyzer 0 % (0-5); Neutrophil # 15.01 X10^3/uL (2.7-7.7); Neutrophil % 89.7 % (47-70); Platelet Count 287 K/mm3 (150-450); RBC Distribution Width CV 14.4 % (11.6-14.6); RBC Distribution Width SD 49.1 fl (35.1-43.9); White Blood Count 16.7 K/mm3 (4.4-11.0)
[2023-07-14 06:02] LABS: Anion Gap 9 (5-15); BUN 36 mg/dL (7-18); BUN/Creat Ratio 19.7 RATIO (10-20); Calcium,Total 8.2 mg/dL (8.5-10.1); Chloride 116 mmol/L (98-107); Creatinine, Serum 1.83 mg/dL (0.55-1.02); EST Glomerular Filtration Rate 28 mL/min (>60); Est Glom Filt Rate - Afr Amer 34 mL/min (>60); Estimated Creatinine Clearance 22.95 ml/min; Glucose 84 mg/dL (74-106); Potassium 3.4 mmol/L (3.5-5.1); Sodium Level 144 mmol/L (136-145)
[2023-07-14] MEDS: Vancomycin HCl 1,250 MG in 0.9% Normal Saline (250mL Bag) 250 ML 167 MG IV (06:21)
[2023-07-14 06:30] VITALS: BMI 49.4
--- NOTE | 2023-07-14 08:07 | PN.SURG_ITS ---
Subjective Subjective Patient states that abdominal pain may be slightly better but about the same. CT abdomen pelvis showed more ascites did comment on gallstones, question some discitis. Chest x-ray stable Objective Data Objective Data Vital Signs: Vital Signs Temp Pulse Resp BP Pulse Ox O2 Del Method O2 Flow Rate 99.0 F 91 18 150/63 H 94 CPAP 3 07/14/23 03:10 07/14/23 03:10 07/14/23 03:10 07/14/23 03:10 07/14/23 03:10 07/14/23 03:10 07/13/23 19:30 FiO2 4 07/10/23 08:00 Oxygen Flow Rate (L/min) 3 Oxygen Delivery Method CPAP Weight: 306 lb 3.553 oz Body Mass Index (BMI) 49.4 Intake & Output: Intake and Output for Last 24 Hours 07/12/23 07/13/23 07/14/23 23:59 23:59 23:59 Intake Total 483.75 / 683.75 825 / 825 325 / 325 Output Total 450 / 575 525 / 525 300 / 300 Balance 33.75 / 108.75 300 / 300 / 25 Lab / Micro Data 07/15/23 07:54 07/14/23 05:04 Labs: Laboratory Results - last 24 hr 07/13/23 04:23: Direct Antiglob Test NEG w/POLYSPECIFIC 07/13/23 05:24: Procalcitonin 0.58 H 07/13/23 05:40: Lactate Dehydrogenase 250 H, Folate 4.30 07/13/23 09:30: Urine Color Yellow, Urine Clarity Cloudy, Urine pH 6.0, Ur Specific Ashley 1.020, Urine Protein 100 H, Urine Glucose (UA) Normal, Urine Ketones Negative, Urine Occult Blood 25 H, Urine Nitrite Negative, Urine Bilirubin Negative, Urine Urobilinogen Normal, Ur Leukocyte Esterase 500 H, Urine RBC 0-5 SEEN, Urine WBC 10-25 SEEN, Ur Squamous Epith Cells 0-5 SEEN, Amorphous Sediment 1+, Urine Bacteria 1+, Urine Mucus 1+, Urine Yeast RARE, Ur Random Sodium 5, Urine Creatinine 190.00 07/13/23 12:24: Retic Count 2.23 H, Immature Retic Fraction 24.30 H, Retic Hgb Equivalent 24.5 L 07/13/23 15:00: Urine Osmolality 482, U Random Total Protein 234.7 H, Ur Random Sodium 10, Urine Creatinine 172.00, Protein/Creatinin Ratio 1365 H, Urine Potassium 35.0, Urine Chloride < 10 07/14/23 05:04: WBC 16.7 H, RBC 3.10 L, Hgb 8.8 L, Hct 29.1 L, MCV 93.9, MCH 28.4, MCHC 30.2 L, RDW Std Deviation 49.1 H, RDW Coeff of Fariba 14.4, Plt Count 287, MPV 11.4, Immature Gran % (Auto) 1.700 H, Neut % (Auto) 89.7 H, Lymph % (Auto) 4.3 L, Mcculloch % (Auto) 3.5, Eos % (Auto) 0.4, Baso % (Auto) 0.4, Absolute Neuts (auto) 15.0 H, Absolute Lymphs (auto) 0.72 L, Nucleated RBC % 0, Sodium 144, Potassium 3.4 L, Chloride 116 H, Carbon Dioxide 19.0 L, Anion Gap 9, BUN 36 H, Creatinine 1.83 H, Estim Creat Clear Calc 22.95, Est GFR (MDRD) Af Amer 34 L, Est GFR (MDRD) Non-Af 28 L, BUN/Creatinine Ratio 19.7, Glucose 84, Calcium 8.2 L Micro: Microbiology 07/13/23 16:29 Stool C. difficile DNA Amplification - Final 07/09/23 14:05 Blood Culture (Wb) - Port Blood Culture - Preliminary No growth in 48 hours. 07/09/23 13:20 Blood Culture (Wb) - Port Blood Culture - Preliminary No growth in 48 hours. Radiography Diagnostic Testing: Radiology Impression Abdomen/Pelvis CT 07/13/23 11:16 IMPRESSION: Multiple gallstones. Increased ascites in the abdomen and pelvis. Colonic diverticulosis. No obstruction. Lower lung consolidation and pleural effusions. Degenerative change of the spine. Endplate irregularity at L2-3 on the right with potential discitis/osteomyelitis. MRI recommended for further evaluation. Electronically Signed: Amador Guo MD at 14:15 EST , ADDENDUM: 07/13/23 1430 IMPRESSION: Multiple gallstones. Increased ascites in the abdomen and pelvis. Colonic diverticulosis. No obstruction. Lower lung consolidation and pleural effusions. Degenerative change of the spine. Endplate irregularity at L2-3 on the right with potential discitis/osteomyelitis. MRI recommended for further evaluation. N.B. : Stephanie Almaraz RN, confirmed on 07/13/2023 14:23:32 (ET) that the healthcare facility has received the radiology report. Electronically Signed: Amador Guo MD at 14:15 EST , Chest X-Ray 07/13/23 12:10 IMPRESSION: No significant interval change. Electronically Signed: Fozia Brady MD at 13:15 EST , Physical Exam Const oriented x3 and no apparent distress Resp normal respiratory effort Cardio regular rate GI soft to palpation GI Narrative: Right upper quadrant tenderness to palpation and minimal left lower quadrant, no peritoneal signs, mild abdominal distention Assessment & Plan Assessment/Plan (1) Acute pancreatitis: QUALIFIERS: Acute pancreatitis complication: no infection or necrosis Pancreatitis type: drug induced Qualified Code(s): K85.30 - Drug induced acute pancreatitis without necrosis or infection PLAN: Did give patient back her clear liquid diet. white blood count is slightly decreased to 16.[address] abdomen pelvis did show increased ascites likely due to her previous pancreatitis. CT reported as no gallstones which were previously noted. Again unsure of patient's cause of pancreatitis with her medication-induced which seems more likely as she had no elevation of her liver functions. On IV Zosyn & vanco per primary Kaelyn Franco M.D. Pager: [phone] [facility] [address] [place] [address], Outpatient [place], [address] [place] [address] Office: [phone] Charges/Coding Visit Charges Inpatient E&M: 04090 Subs Hosp L2
--- NOTE | 2023-07-14 08:07 | PCM.PN.REN ---
Subjective Subjective Following for LUIS ALBERTO on CKD. The patient feels a bit better subjectively. She is still dyspneic but slightly improved in the last 24 hours. She denies chest pain, vomiting, but has occasional nausea. There has been no diarrhea. Objective Data Objective Data Vital Signs: Vital Signs Temp Pulse Resp BP Pulse Ox O2 Del Method O2 Flow Rate 99.0 F 91 18 150/63 H 94 CPAP 3 07/14/23 03:10 07/14/23 03:10 07/14/23 03:10 07/14/23 03:10 07/14/23 03:10 07/14/23 03:10 07/13/23 19:30 FiO2 4 07/10/23 08:00 Oxygen Flow Rate (L/min) 3 Oxygen Delivery Method CPAP Weight: 138.9 kg Body Mass Index (BMI) 49.4 Intake & Output: Intake and Output for Last 24 Hours 07/12/23 07/13/23 07/14/23 23:59 23:59 23:59 Intake Total 483.75 / 683.75 825 / 825 325 / 325 Output Total 450 / 575 525 / 525 300 / 300 Balance 33.75 / 108.75 300 / 300 Lab / Micro Data 07/14/23 05:04 07/14/23 05:04 Labs: Laboratory Results - last 24 hr 07/13/23 04:23: Direct Antiglob Test NEG w/POLYSPECIFIC 07/13/23 05:24: Procalcitonin 0.58 H 07/13/23 05:40: Lactate Dehydrogenase 250 H, Folate 4.30 07/13/23 09:30: Urine Color Yellow, Urine Clarity Cloudy, Urine pH 6.0, Ur Specific [place] 1.020, Urine Protein 100 H, Urine Glucose (UA) Normal, Urine Ketones Negative, Urine Occult Blood 25 H, Urine Nitrite Negative, Urine Bilirubin Negative, Urine Urobilinogen Normal, Ur Leukocyte Esterase 500 H, Urine RBC 0-5 SEEN, Urine WBC 10-25 SEEN, Ur Squamous Epith Cells 0-5 SEEN, Amorphous Sediment 1+, Urine Bacteria 1+, Urine Mucus 1+, Urine Yeast RARE, Ur Random Sodium 5, Urine Creatinine 190.00 07/13/23 12:24: Retic Count 2.23 H, Immature Retic Fraction 24.30 H, Retic Hgb Equivalent 24.5 L 07/13/23 15:00: Urine Osmolality 482, U Random Total Protein 234.7 H, Ur Random Sodium 10, Urine Creatinine 172.00, Protein/Creatinin Ratio 1365 H, Urine Potassium 35.0, Urine Chloride < 10 07/14/23 05:04: WBC 16.7 H, RBC 3.10 L, Hgb 8.8 L, Hct 29.1 L, MCV 93.9, MCH 28.4, MCHC 30.2 L, RDW Std Deviation 49.1 H, RDW Coeff of Fariba 14.4, Plt Count 287, MPV 11.4, Immature Gran % (Auto) 1.700 H, Neut % (Auto) 89.7 H, Lymph % (Auto) 4.3 L, Bennett % (Auto) 3.5, Eos % (Auto) 0.4, Baso % (Auto) 0.4, Absolute Neuts (auto) 15.0 H, Absolute Lymphs (auto) 0.72 L, Nucleated RBC % 0, Sodium 144, Potassium 3.4 L, Chloride 116 H, Carbon Dioxide 19.0 L, Anion Gap 9, BUN 36 H, Creatinine 1.83 H, Estim Creat Clear Calc 22.95, Est GFR (MDRD) Af Amer 34 L, Est GFR (MDRD) Non-Af 28 L, BUN/Creatinine Ratio 19.7, Glucose 84, Calcium 8.2 L Micro: Microbiology 07/13/23 16:29 Stool C. difficile DNA Amplification - Final 07/09/23 14:05 Blood Culture (Wb) - Port Blood Culture - Preliminary No growth in 48 hours. 07/09/23 13:20 Blood Culture (Wb) - Port Blood Culture - Preliminary No growth in 48 hours. Radiography Diagnostic Testing: Radiology Impression Abdomen/Pelvis CT 07/13/23 11:16 IMPRESSION: Multiple gallstones. Increased ascites in the abdomen and pelvis. Colonic diverticulosis. No obstruction. Lower lung consolidation and pleural effusions. Degenerative change of the spine. Endplate irregularity at L2-3 on the right with potential discitis/osteomyelitis. MRI recommended for further evaluation. Electronically Signed: Amador Guo MD at 14:15 EST , ADDENDUM: 07/13/23 1430 IMPRESSION: Multiple gallstones. Increased ascites in the abdomen and pelvis. Colonic diverticulosis. No obstruction. Lower lung consolidation and pleural effusions. Degenerative change of the spine. Endplate irregularity at L2-3 on the right with potential discitis/osteomyelitis. MRI recommended for further evaluation. N.B. : Stephanie Almaraz RN, confirmed on 07/13/2023 14:23:32 (ET) that the healthcare facility has received the radiology report. Electronically Signed: Amador Guo MD at 14:15 EST , Chest X-Ray 07/13/23 12:10 IMPRESSION: No significant interval change. Electronically Signed: Fozia Brady MD at 13:15 EST , Physical Exam Narrative General: Alert and oriented x3, NAD. Cardiovascular: Normal S1, S2. No rubs, murmurs, or gallops. Respiratory: Lungs sound is decreased at bases. No wheezing, rhonchi, or rales. Abdomen: Normal bowel sounds, soft, nontender, no guarding or rebound, no organomegaly. Extremities: No clubbing or cyanosis. There is 1+ edema of the lower extremities bilaterally Assessment & Plan Assessment/Plan (1) Acute kidney injury: (2) Chronic kidney disease, stage 3b: (3) Acute metabolic acidosis: PLAN: Plan Impression/Plan: 78-year-old woman with past history of chronic kidney disease stage G3b, type 2 diabetes mellitus, hypertension, CAD, HFpEF, aortic stenosis status post replacement, atrial fibrillation, pulmonary hypertension on treprostinil, GERD, and iron deficiency anemia. The patient was admitted to the hospital on 07/09/2023 with gallstone pancreatitis. She has also been treated for acute hypoxic respiratory failure attributed to HFpEF with diuresis. Nephrology is following for LUIS ALBERTO on CKD. Acute kidney injury on chronic kidney disease stage G3b. Baseline serum creatinine has been around 1.3 to 1.5 mg/dL prior to this admission. The patient likely has underlying CKD due to diabetic kidney disease. Acute kidney injury is likely due to prerenal azotemia. So far, serum creatinine has peaked at 2.04 mg/dL on 07/12/2023 during this admission. Serum creatinine improved to 1.89 mg/dL on 07/13/2023. Serum creatinine remained stable today at 1.83 mg/dL on 07/14/2023. There was no evidence of urinary tract obstruction on CT abdomen/pelvis on 07/09/2023. Urinalysis and fractional secretion of sodium less than 1% are consistent with prerenal LUIS ALBERTO. Although she appears to be volume up on exam with edema of the lower extremities and decreased breath sounds, I do not think her intravascular volume is expanded. In fact, intravascular volume may be on the lower side given her presentation with pancreatitis which can cause third spacing of fluid. Therefore, I do not recommend further diuresis today. I would recommend continuing to let patient hydrate/take solute on her own today. Will recheck renal function, volume status, electrolytes, and acid-base status again tomorrow. Hypokalemia. The patient has hypokalemia which is likely due to prior diuresis. Will replace potassium deficit and check magnesium and potassium level tomorrow. Acute metabolic acidosis. Historically, serum bicarbonate level has been around 22 to 23 mmol/L prior to this admission. Serum bicarbonate level has been between 18 and 19 mmol/L during this admission. I suspect that acute metabolic acidosis may be due to LUIS ALBERTO on CKD and loose bowel movements. There is no need to add sodium bicarbonate supplementation at this point. We will monitor serum bicarbonate level. Nephrology plan will be discussed with Dr. Lynne.
[2023-07-14 08:20] VITALS: BP 150/53; PULSE 106; RESP 14; TEMP 36.9; O2SAT 94
[2023-07-14] MEDS: Menthol/Lanolin/Calamine/Znox 113 GM Tube 1 APPLIC TOPICAL ×2 (08:23→20:19)
[2023-07-14] MEDS: Pantoprazole Sodium 40 MG Tablet PO (08:23)
[2023-07-14] MEDS: Enoxaparin 30 MG/0.3 ML Syringe SC (08:24)
[2023-07-14] MEDS: Potassium Chloride Oral Tablet 20 MEQ 40 MEQ PO (09:17)
--- NOTE | 2023-07-14 09:58 | PCM.PN.HOSP ---
Reason for Visit Reason for Visit: Diagnoses Acute metabolic acidosis (07/09/23) Essential (primary) hypertension (07/09/23) Longstanding persistent atrial fibrillation (07/09/23) Chronic diastolic (congestive) heart failure (07/09/23) Pleural effusion, not elsewhere classified (07/09/23) Acute respiratory failure with hypoxia (07/09/23) Biliary acute pancreatitis without necrosis or infection (07/09/23) Drug induced acute pancreatitis without necrosis or infection (07/09/23) Discitis, unspecified, lumbar region (07/09/23) Acute kidney failure, unspecified (07/09/23) Chronic kidney disease, stage 3b (07/09/23) Presence of prosthetic heart valve (07/09/23) Objective Data Objective Data Vital Signs: Vital Signs Temp Pulse Resp BP Pulse Ox O2 Del Method O2 Flow Rate 98.5 F 106 H 14 150/53 H 94 CPAP 4 07/14/23 08:20 07/14/23 08:20 07/14/23 08:20 07/14/23 08:20 07/14/23 08:20 07/14/23 08:20 07/14/23 08:20 FiO2 4 07/10/23 08:00 Oxygen Flow Rate (L/min) 4 Oxygen Delivery Method CPAP Weight: 306 lb 3.553 oz Body Mass Index (BMI) 49.4 Intake & Output: Intake and Output for Last 24 Hours 07/12/23 07/13/23 07/14/23 23:59 23:59 23:59 Intake Total 483.75 / 683.75 825 / 825 375 / 375 Output Total 450 / 575 525 / 525 300 / 300 Balance 33.75 / 108.75 300 / 300 75 / 75 Lab / Micro Data 07/14/23 05:04 07/14/23 05:04 Labs: Laboratory Results - last 24 hr 07/13/23 04:23: Direct Antiglob Test NEG w/POLYSPECIFIC 07/13/23 05:24: Procalcitonin 0.58 H 07/13/23 05:40: Lactate Dehydrogenase 250 H, Folate 4.30 07/13/23 09:30: Urine RBC 0-5 SEEN, Urine WBC 10-25 SEEN, Ur Squamous Epith Cells 0-5 SEEN, Amorphous Sediment 1+, Urine Bacteria 1+, Urine Mucus 1+, Urine Yeast RARE, Ur Random Sodium 5, Urine Creatinine 190.00 07/13/23 12:24: Retic Count 2.23 H, Immature Retic Fraction 24.30 H, Retic Hgb Equivalent 24.5 L 07/13/23 15:00: Urine Osmolality 482, U Random Total Protein 234.7 H, Ur Random Sodium 10, Urine Creatinine 172.00, Protein/Creatinin Ratio 1365 H, Urine Potassium 35.0, Urine Chloride < 10 07/14/23 05:04: WBC 16.7 H, RBC 3.10 L, Hgb 8.8 L, Hct 29.1 L, MCV 93.9, MCH 28.4, MCHC 30.2 L, RDW Std Deviation 49.1 H, RDW Coeff of Fariba 14.4, Plt Count 287, MPV 11.4, Immature Gran % (Auto) 1.700 H, Neut % (Auto) 89.7 H, Lymph % (Auto) 4.3 L, Starke % (Auto) 3.5, Eos % (Auto) 0.4, Baso % (Auto) 0.4, Absolute Neuts (auto) 15.0 H, Absolute Lymphs (auto) 0.72 L, Nucleated RBC % 0, Sodium 144, Potassium 3.4 L, Chloride 116 H, Carbon Dioxide 19.0 L, Anion Gap 9, BUN 36 H, Creatinine 1.83 H, Estim Creat Clear Calc 22.95, Est GFR (MDRD) Af Amer 34 L, Est GFR (MDRD) Non-Af 28 L, BUN/Creatinine Ratio 19.7, Glucose 84, Calcium 8.2 L Micro: Microbiology 07/13/23 16:29 Stool C. difficile DNA Amplification - Final 07/09/23 14:05 Blood Culture (Wb) - Port Blood Culture - Preliminary No growth in 48 hours. 07/09/23 13:20 Blood Culture (Wb) - Port Blood Culture - Preliminary No growth in 48 hours. Radiography Diagnostic Testing: Radiology Impression Abdomen/Pelvis CT 07/13/23 11:16 IMPRESSION: Multiple gallstones. Increased ascites in the abdomen and pelvis. Colonic diverticulosis. No obstruction. Lower lung consolidation and pleural effusions. Degenerative change of the spine. Endplate irregularity at L2-3 on the right with potential discitis/osteomyelitis. MRI recommended for further evaluation. Electronically Signed: Amador Guo MD at 14:15 EST , ADDENDUM: 07/13/23 1430 IMPRESSION: Multiple gallstones. Increased ascites in the abdomen and pelvis. Colonic diverticulosis. No obstruction. Lower lung consolidation and pleural effusions. Degenerative change of the spine. Endplate irregularity at L2-3 on the right with potential discitis/osteomyelitis. MRI recommended for further evaluation. N.B. : Stephanie Almaraz RN, confirmed on 07/13/2023 14:23:32 (ET) that the healthcare facility has received the radiology report. Electronically Signed: Amador Guo MD at 14:15 EST , Chest X-Ray 07/13/23 12:10 IMPRESSION: No significant interval change. Electronically Signed: Fozia Brady MD at 13:15 EST , Physical Exam Narrative Seen and examined. Seen and examined. Patient states her shortness of breath is same but may be little improvement since admission. Does not have abdominal pain. Patient having diarrhea 4-5 bowel movements loose consistency but this is a chronic problem after starting treprostinil. No fever. Physical exam General: Alert, Oriented x3, Cooperative HEENT: Atraumatic, PERRLA, EOMI, Normocephalic Oral: Oral mucosa moist. No Gingival or Mucosal Lesions/ Ulcerations Neck: Supple, No JVD, Negative Carotid Bruits Lungs: Air entry diminished in bilateral lung bases. No crepitations. On CPAP Cardiovascular: Regular rate, Regular Rhythm, Normal S1, Normal S2, No murmurs Abdomen: Bowel Sounds sluggish. No appreciable tenderness. No distention. No rigidity. : No dysuria. No renal angle tenderness. No suprapubic tenderness. Extremities: No edema, Capillary Refill Less than 3 Seconds Skin: No rashes, No breakdown Musculoskeletal: No Tenderness to Palpation of Joints or Extremities Neurological: Cranial nerves II-XII grossly intact, DTR 2+/4. No acute focal neurological deficit. Psych/Mental Status: Flat affect. Assessment & Plan Assessment/Plan (1) Acute gallstone pancreatitis: (2) Acute hypoxemic respiratory failure: (3) Chronic diastolic (congestive) heart failure: (4) Essential (primary) hypertension: (5) H/O aortic valve replacement: (6) Longstanding persistent atrial fibrillation: PLAN: Plan 78-year-old female is being admitted in ICU after sudden onset of predominantly severe epigastric and RUQ abdominal pain, low blood pressure 89/43, nausea with dry heaves, sent to ED from infusion center where she was getting vancomycin and Rocephin for history of discitis and high leverage suggestive of acute pancreatitis. No fever. She had 2 BM in the morning on the day of admission #Acute gallstone pancreatitis -Lipase >5000 w/ imaging consistent with pancreatitis. CT abdomen individually reviewed and shows inflammation around gallbladder and pancreas, multiple gallstones with GB wall thickening and pericholecystic fluid suggesting cholecystitis. But gallbladder not distended. Patient was evaluated by surgeon and there is anticipation of laparoscopic surgery after pancreatitis resolved. Hematocrit on admission was 29% currently 34.3. BUN 14. Heart rate and blood pressure in acceptable limit. Hematocrit 29.8 and BUN 14 within acceptable limit. Continue IV fluid. Pain medication Dilaudid. -Patient already on vancomycin and Rocephin for history of discitis, and Rocephin was changed to Zosyn. -N.p.o. IV fluid. 07/11: Mild leukocytosis worse than yesterday. Patient on IV antibiotics. 07/12 leukocytosis worsening. Patient on IV antibiotics. No fever. Blood culture negative for 48 hours. 07/13: Patient does not have fever but leukocytosis worsening. Gradually went worse from normal to 17.2 thousand. She is covered with antibiotics vancomycin and Zosyn unclear whether it is from medication or other inflammatory condition. CT abdomen without contrast ordered. Discussed with the surgeon. 07/14: CT abdomen reviewed. It was similar finding as previous CT scan. Multiple gallstones. Increased ascites in the abdomen and pelvis. Degenerative changes in the spine with endplate irregularity at L2-3 on right and the diagnosis of discitis/osteomyelitis. Patient is on IV antibiotics. Stool for C. difficile negative. #Recent discitis -ID was consulted and note reviewed. Patient to stop date of vancomycin and ceftriaxone 07/21/2023. Back pain overall much improved. Pancreatitis is a rare reported reaction with ceftriaxone so could be a possible cause. Currently on vancomycin and Zosyn. 07/14: Vanco trough level was normal limit. Pharmacy is following the Vanco limit. Blood cultures x2 negative for 48 hours. #Acute hypoxia/Hx chronic HFpEF per documentation/Hx AV bioprosthetic replacement -Patient 75% on room air in ED improved to 92% on 6 L, Currently on 4 L of oxygen. -Most recent echo February 2023 with PASP of 70, bioprosthetic aortic valve and EF of 60%, no comment on diastolic function but has documentation in chart of heart failure with preserved ejection fraction -Left pleural effusion noted on CT scan, overall fairly minimal -Patient was put on Ventimask and then BiPAP and buttermaker continuous churn was consulted. During the day patient improved and is stable for transfer out of ICU. 07/11: Patient visibly looks short of breath. Chest x-ray portable ordered. Lasix 40 mg IV ordered. 07/13: Repeat chest x-ray PA and lateral ordered. No maggie crepitations on auscultation. LUIS ALBERTO on CKD stage IIIb: 07/11: Patient creatinine went up1.68. Her baseline is around 1.2. The patient CT abdomen pelvis with IV contrast on 07/09/2023 so possible contrast related nephrotoxicity but it was 2 days ago. Patient is on IV fluid normal saline but seems fluid overload and lung condition therefore chest x-ray and furosemide ordered. Monitor kidney function further worsening will need nephrology consult. Medications reviewed and does not seem any in nephrotoxic medications. ID prefer to continue vancomycin and Zosyn dose needs to be adjusted. 07/12: Creatinine went up to 2.0. BUN 35. Anion gap 8, bicarb 18. Sodium and chloride on higher side. Discussed with the brake machine operator. Patient treated for 7 L of positive fluid balance and was short of breath and lung crepitation therefore Lasix 40 mg IV 1 dose was given yesterday. We agreed on just monitoring without giving IV fluids or diuretics. 07/13: Creatinine seems better. Discussed with the brake machine operator. Total positive 7.7 L positive fluid balance. Urine output about 450 mL. Urine electrolytes ordered. 07/14: BUNs/creatinine 36/1.83. Discussed with the brake machine operator. Encouraged IV fluid. Kidney function gradually improving. Avoid nephrotoxic medications. Anion gap normal, normal anion gap metabolic acidosis. Mild hypokalemia potassium getting replaced. #GERD -Continue PPI #afib -Patient reports chronic A-fib but has had multiple GI bleeds most recently in February so has been taken off of all anticoagulation -She is undergoing evaluation for Watchman which is the ultimate goal patient is still in A-fib. #pulmonary HTN: She was started in October 2022 on treprostinil for pulmonary hypertension by Dr. Nelson and dose has gradually been increased. Patient on treprostinil 4.5 mg tablet 3 times a day an additional 0.125 mg on every Saturday until final goal is achieved. Currently it is on hold. I called Dr. Nelson phone and left a voicemail to call back. 07/[address] Nelson yesterday and today but did not call back. Left a voice message 07/13: Discussed with our rural route carrier, Dr. Cartagena. Cannot discontinue treprostinil as patient can have rebound pulmonary hypertension with risk of cardiac arrest. 07/14: Patient has diarrhea of 4-5 bowel movements since the beginning of the starting treprostinil. #AARTI -On home cpap #Chronic anemia -Does not appear to be acutely bleeding 07/13: Hemoglobin slight drop to 8.9 from baseline around 10.2. Monitor CBC. Patient had recent iron work-up on April 2023 which shows iron 48, TIBC low normal at 268 iron saturation 18% and ferritin 197 suggestive of inflammatory anemia/anemia of chronic disease. 07/14: H&H 8.8/29%. Platelet count 287,000. #DVT ppx: Lovenox subcu Microbiology Past 72 Hours 07/13/23 16:29 Stool C. difficile DNA Amplification - Final 07/09/23 14:05 Blood Culture (Wb) - Port Blood Culture - Preliminary No growth in 48 hours. 07/09/23 13:20 Blood Culture (Wb) - Port Blood Culture - Preliminary No growth in 48 hours. Laboratory Results 07/13/23 15:00: Urine Osmolality 482, U Random Total Protein 234.7 H, Ur Random Sodium 10, Urine Creatinine 172.00, Protein/Creatinin Ratio 1365 H, Urine Potassium 35.0, Urine Chloride < 10 07/14/23 05:04: WBC 16.7 H, RBC 3.10 L, Hgb 8.8 L, Hct 29.1 L, MCV 93.9, MCH 28.4, MCHC 30.2 L, RDW Std Deviation 49.1 H, RDW Coeff of Fariba 14.4, Plt Count 287, MPV 11.4, Immature Gran % (Auto) 1.700 H, Neut % (Auto) 89.7 H, Lymph % (Auto) 4.3 L, Starke % (Auto) 3.5, Eos % (Auto) 0.4, Baso % (Auto) 0.4, Absolute Neuts (auto) 15.0 H, Absolute Lymphs (auto) 0.72 L, Nucleated RBC % 0, Sodium 144, Potassium 3.4 L, Chloride 116 H, Carbon Dioxide 19.0 L, Anion Gap 9, BUN 36 H, Creatinine 1.83 H, Estim Creat Clear Calc 22.95, Est GFR (MDRD) Af Amer 34 L, Est GFR (MDRD) Non-Af 28 L, BUN/Creatinine Ratio 19.7, Glucose 84, Calcium 8.2 L, Total Bilirubin 0.40, Direct Bilirubin 0.17, AST 17, ALT 13, Alkaline Phosphatase 119 H, Total Protein 5.9 L, Albumin 1.9 L, Globulin 4.0 Charges/Coding Visit Charges Inpatient E&M: 46558 Subs Hosp L3
[2023-07-14 11:56] LABS: AST(SGOT) 17 U/L (15-37); Alanine Aminotransfer ALT/SGPT 13 U/L (13-56); Albumin, Serum 1.9 g/dL (3.2-5.0); Alkaline Phosphatase 119 U/L (45-117); Bilirubin, Direct 0.17 mg/dL (0.00-0.30); Protein, Total 5.9 g/dL (6.4-8.2)
[2023-07-14 14:15] VITALS: O2SAT 96
[2023-07-14] MEDS: Pramipexole Di-HCl 0.125 MG Tablet PO (20:19)
[2023-07-14] MEDS: Ondansetron 4 MG/2 ML Vial IV (21:56)
[2023-07-14 23:00] VITALS: BP 143/59; PULSE 100; RESP 16; TEMP 36.6; O2SAT 96
[2023-07-15 03:09] VITALS: BMI 49.4
[2023-07-15] MEDS: SILDENAFIL CITRATE 20 MG TABLET PO ×3 (05:22→20:27)
[2023-07-15] MEDS: Piperacil/Tazobactam 3.375 GM in 0.9% Normal Saline (50mL MB+) 50 ML IV ×2 (05:24→17:15)
[2023-07-15 07:39] VITALS: O2SAT 95
[2023-07-15 08:06] LABS: Absolute Lymphocyte Count 0.69 X10^3/uL (0.83-4.51); Absolute Neutrophil Count 17.4 X10^3/uL (2.0-7.7); Basophil# 0.07 X10^3/uL; Basophil% 0.4 % (0-1); Eosinophil# 0.03 X10^3/uL; Eosinophils% 0.2 % (0-5); Hematocrit 28.2 % (37-47); Hemoglobin 8.6 g/dL (12.0-15.0); Lymphocyte # 0.69 X10^3/ul (0.83-4.51); Lymphocyte % 3.6 % (19-41); Mean Corp Hgb Conc 30.5 g/dL (32-36); Mean Corpuscular Hgb 28.5 pg (27.0-32.0); Mean Corpuscular Volume 93.4 fL (81-99); Mean Platelet Vol. 11.1 fl (6.2-12.0); Monocyte% 2.6 % (0-10); NRBC Flagged by Analyzer 0 % (0-5); Neutrophil # 17.42 X10^3/uL (2.7-7.7); Neutrophil % 90.9 % (47-70); Platelet Count 271 K/mm3 (150-450); RBC Distribution Width CV 14.6 % (11.6-14.6); RBC Distribution Width SD 49.8 fl (35.1-43.9); Red Blood Count 3.02 M/mm3 (4.2-5.4); White Blood Count 19.2 K/mm3 (4.4-11.0)
[2023-07-15 08:54] LABS: Albumin, Serum 1.8 g/dL (3.2-5.0); BUN 39 mg/dL (7-18); BUN/Creat Ratio 19.9 RATIO (10-20); Calcium,Total 8.4 mg/dL (8.5-10.1); Chloride 117 mmol/L (98-107); Creatinine, Serum 1.96 mg/dL (0.55-1.02); EST Glomerular Filtration Rate 26 mL/min (>60); Est Glom Filt Rate - Afr Amer 32 mL/min (>60); Estimated Creatinine Clearance 21.43 ml/min; Glucose 115 mg/dL (74-106); Magnesium 2.4 mg/dL (1.6-2.6); Phosphorus 3.4 mg/dL (2.5-4.9); Potassium 3.6 mmol/L (3.5-5.1); Sodium Level 141 mmol/L (136-145)
[2023-07-15 08:57] LABS: Vancomycin, Trough Level 20.1 ug/mL (5.0-15.0)
[2023-07-15] MEDS: Pantoprazole Sodium 40 MG Tablet PO (09:00)
[2023-07-15] MEDS: Menthol/Lanolin/Calamine/Znox 113 GM Tube 1 APPLIC TOPICAL ×2 (09:01→20:26)
[2023-07-15] MEDS: Enoxaparin 30 MG/0.3 ML Syringe SC (09:01)
[2023-07-15 09:05] VITALS: BP 131/61; PULSE 109; RESP 18; TEMP 36.9; O2SAT 94
--- NOTE | 2023-07-15 09:06 | PCM.RX.CS ---
Consult Antibiotic Management Pharmacy has been consulted to manage selected antiobiotic: Vancomycin Type of Intervention Type of Consult: Follow-up Suspected Infection Suspected Infection: Other (DISCITIS) Prior Doses of Antibiotics Prior Doses of Antibiotics Received/Current Regimen: Vancomycin 1250 mg IV given 07/13 @ 0653, 07/14 @ 0621 Labs Labs: Sodium 141 mmol/L (136-145) 07/15/23 07:54 Potassium 3.6 mmol/L (3.5-5.1) 07/15/23 07:54 Chloride 117 mmol/L (98-107) H 07/15/23 07:54 Carbon Dioxide 16.0 mmol/L (21.0-32.0) L 07/15/23 07:54 Anion Gap 9 (5-15) 07/14/23 05:04 BUN 39 mg/dL (7-18) H 07/15/23 07:54 Creatinine 1.96 mg/dL (0.55-1.02) H 07/15/23 07:54 Est GFR (MDRD) Af Amer 32 mL/min (>60) L 07/15/23 07:54 Est GFR (MDRD) Non-Af 26 mL/min (>60) L 07/15/23 07:54 BUN/Creatinine Ratio 19.9 RATIO (10-20) 07/15/23 07:54 Glucose 115 mg/dL (74-106) H 07/15/23 07:54 Vancomycin Trough 20.1 ug/mL (5.0-15.0) H 07/15/23 07:54 Random Vancomycin 16.3 ug/mL (0.0-15.0) H 07/13/23 05:40 Microbiology Microbiology: Microbiology 07/09/23 14:05 Blood Culture (Wb) - Port Blood Culture - Final No growth in 5 days. 07/09/23 13:20 Blood Culture (Wb) - Port Blood Culture - Final No growth in 5 days. 07/13/23 16:29 Stool C. difficile DNA Amplification - Final Dosing Weight Weight used for dosin.9 kg Estimated Creatinine Clearance Estimated Creatinine Clearance: ~32 Goal Trough Goal Trough: 15-20 mcg/mL Pharmacy Plan for Drug Dosing Pharmacy Plan for Drug Dosing: Vancomycin trough = 20.1, will reduce to 1000 mg Q24H starting this AM. Pharmacy Service will continue to monitor and adjust dosing as required. Follow-Up Labs Follow-Up Labs: Trough: Vancomycin Date/Time Labs Ordered Labs to be done on [date and time ordered]: 07/17/23 @ 8158
--- NOTE | 2023-07-15 09:11 | PCM.PN.REN ---
Subjective Subjective Sitting in recliner chair, no overnight events. Denies any complaints. Objective Data Objective Data Vital Signs: Vital Signs Temp Pulse Resp BP Pulse Ox O2 Del Method O2 Flow Rate 98.5 F 109 H 18 131/61 H 94 CPAP 3 07/15/23 09:05 07/15/23 09:05 07/15/23 09:05 07/15/23 09:05 07/15/23 09:05 07/15/23 09:05 07/15/23 09:05 FiO2 4 07/10/23 08:00 Oxygen Flow Rate (L/min) 3 Oxygen Delivery Method CPAP Weight: 138.9 kg Body Mass Index (BMI) 49.4 Intake & Output: Intake and Output for Last 24 Hours 07/13/23 07/14/23 07/15/23 23:59 23:59 23:59 Intake Total 825 / 825 765 / 765 100 / 100 Output Total 525 / 525 800 / 800 400 / 400 Balance 300 / 300 -35 / -35 -300 / -300 Lab / Micro Data 07/15/23 07:54 07/15/23 07:54 Labs: Laboratory Results - last 24 hr 07/14/23 05:04: Total Bilirubin 0.40, Direct Bilirubin 0.17, AST 17, ALT 13, Alkaline Phosphatase 119 H, Total Protein 5.9 L, Albumin 1.9 L, Globulin 4.0 07/15/23 07:54: WBC 19.2 H, RBC 3.02 L, Hgb 8.6 L, Hct 28.2 L, MCV 93.4, MCH 28.5, MCHC 30.5 L, RDW Std Deviation 49.8 H, RDW Coeff of Fariba 14.6, Plt Count 271, MPV 11.1, Immature Gran % (Auto) 2.300 H, Neut % (Auto) 90.9 H, Lymph % (Auto) 3.6 L, [place] % (Auto) 2.6, Eos % (Auto) 0.2, Baso % (Auto) 0.4, Absolute Neuts (auto) 17.4 H, Absolute Lymphs (auto) 0.69 L, Nucleated RBC % 0, Sodium 141, Potassium 3.6, Chloride 117 H, Carbon Dioxide 16.0 L, BUN 39 H, Creatinine 1.96 H, Estim Creat Clear Calc 21.43, Est GFR (MDRD) Af Amer 32 L, Est GFR (MDRD) Non-Af 26 L, BUN/Creatinine Ratio 19.9, Glucose 115 H, Calcium 8.4 L, Phosphorus 3.4, Magnesium 2.4, Albumin 1.8 L, Vancomycin Trough 20.1 H Micro: Microbiology 07/09/23 14:05 Blood Culture (Wb) - Port Blood Culture - Final No growth in 5 days. 07/09/23 13:20 Blood Culture (Wb) - Port Blood Culture - Final No growth in 5 days. 07/13/23 16:29 Stool C. difficile DNA Amplification - Final Physical Exam Narrative Alert and oriented x3, NAD. Normal S1, S2. No rubs, murmurs, or gallops. Lungs sound is decreased at bases. No wheezing, rhonchi, or rales. abdomen soft, non tonder trace to 1+ edema of the lower extremities bilaterally Assessment & Plan Assessment/Plan (1) Acute kidney injury: (2) Chronic kidney disease, stage 3b: (3) Acute metabolic acidosis: PLAN: Plan Impression/Plan: 78-year-old woman with past history of chronic kidney disease stage G3b, type 2 diabetes mellitus, hypertension, CAD, HFpEF, aortic stenosis status post replacement, atrial fibrillation, pulmonary hypertension on treprostinil, GERD, and iron deficiency anemia. The patient was admitted to the hospital on 07/09/2023 with gallstone pancreatitis. She has also been treated for acute hypoxic respiratory failure attributed to HFpEF with diuresis. Nephrology is following for LUIS ALBERTO on CKD. Acute kidney injury on chronic kidney disease stage G3b. Baseline serum creatinine has been around 1.3 to 1.5 mg/dL prior to this admission. The patient likely has underlying CKD due to diabetic kidney disease. Acute kidney injury is likely due to prerenal azotemia. Creatinine peaked at 2.04 mg/dL on 07/12/2023. Today SCr 1.96mg/dL. Overall renal function remains stable, no acute indication for LEAN LEADER, potassium and acid/base acceptable and patient is non-oliguric There was no evidence of urinary tract obstruction on CT abdomen/pelvis on 07/09/2023. Urinalysis and fractional secretion of sodium less than 1% are consistent with prerenal LUIS ALBERTO. Intravascular volume may be on the lower side given her presentation with pancreatitis/NPO which can cause third spacing of fluid. Do not recommend further diuresis today. Patient is on liquid diet. Recommend continuing to let patient hydrate/take solute on her own again today. Acute metabolic acidosis. suspect that acute metabolic acidosis may be due to LUIS ALBERTO on CKD and loose bowel movements. Stool for cdiff negative. acute pancreatitis; on Vanco and Zosyn per ID. Recommend close monitoring Vanco levels given LUIS ALBERTO
[2023-07-15 09:47] LABS: Vitamin B12 1820 pg/mL (211-911)
[2023-07-15] MEDS: Vancomycin IV 1,000 MG/200 ML BAG 200 MG IV (09:47)
--- NOTE | 2023-07-15 09:58 | PCM.PN.SRG ---
Subjective Subjective Patient still complaining of some right upper quadrant tenderness. She says that she felt a bloating feeling both time she tried clear liquids. Objective Data Objective Data Vital Signs: Vital Signs Temp Pulse Resp BP Pulse Ox O2 Del Method O2 Flow Rate 98.5 F 109 H 18 131/61 H 94 CPAP 3 07/15/23 09:05 07/15/23 09:05 07/15/23 09:05 07/15/23 09:05 07/15/23 09:05 07/15/23 09:05 07/15/23 09:05 FiO2 4 07/10/23 08:00 Oxygen Flow Rate (L/min) 3 Oxygen Delivery Method CPAP Weight: 306 lb 3.553 oz Body Mass Index (BMI) 49.4 Intake & Output: Intake and Output for Last 24 Hours 07/13/23 07/14/23 07/15/23 23:59 23:59 23:59 Intake Total 825 / 825 765 / 765 150 / 150 Output Total 525 / 525 800 / 800 400 / 400 Balance 300 / 300 -35 / -35 -250 / -250 Lab / Micro Data 07/15/23 07:54 07/15/23 07:54 Labs: Laboratory Results - last 24 hr 07/13/23 04:23: Vitamin B12 1820 H 07/14/23 05:04: Total Bilirubin 0.40, Direct Bilirubin 0.17, AST 17, ALT 13, Alkaline Phosphatase 119 H, Total Protein 5.9 L, Albumin 1.9 L, Globulin 4.0 07/15/23 07:54: WBC 19.2 H, RBC 3.02 L, Hgb 8.6 L, Hct 28.2 L, MCV 93.4, MCH 28.5, MCHC 30.5 L, RDW Std Deviation 49.8 H, RDW Coeff of Fariba 14.6, Plt Count 271, MPV 11.1, Immature Gran % (Auto) 2.300 H, Neut % (Auto) 90.9 H, Lymph % (Auto) 3.6 L, [place] % (Auto) 2.6, Eos % (Auto) 0.2, Baso % (Auto) 0.4, Absolute Neuts (auto) 17.4 H, Absolute Lymphs (auto) 0.69 L, Nucleated RBC % 0, Sodium 141, Potassium 3.6, Chloride 117 H, Carbon Dioxide 16.0 L, BUN 39 H, Creatinine 1.96 H, Estim Creat Clear Calc 21.43, Est GFR (MDRD) Af Amer 32 L, Est GFR (MDRD) Non-Af 26 L, BUN/Creatinine Ratio 19.9, Glucose 115 H, Calcium 8.4 L, Phosphorus 3.4, Magnesium 2.4, Albumin 1.8 L, Vancomycin Trough 20.1 H Micro: Microbiology 07/09/23 14:05 Blood Culture (Wb) - Port Blood Culture - Final No growth in 5 days. 07/09/23 13:20 Blood Culture (Wb) - Port Blood Culture - Final No growth in 5 days. 07/13/23 16:29 Stool C. difficile DNA Amplification - Final Physical Exam Const oriented x3 and no apparent distress GI soft to palpation Inspection: abdominal distention Assessment & Plan Assessment/Plan (1) Acute pancreatitis: QUALIFIERS: Pancreatitis type: drug induced Acute pancreatitis complication: no infection or necrosis Qualified Code(s): K85.30 - Drug induced acute pancreatitis without necrosis or infection PLAN: The patient has ongoing upper abdominal discomfort. Continue clear liquids and antibiotics for now. Reviewed the patient's CT scan from over the weekend with increased ascites. Await the patient to tolerate clear liquids well before advancing diet. White count still elevated, likely from pancreatitis. Bo Madrid MD Pager: [facility] [address] [place] [address], [address] [place] [address] Office:
--- NOTE | 2023-07-15 09:59 | PN.HOSP_ITS ---
Reason for Visit Reason for Visit: Diagnoses Acute metabolic acidosis (07/09/23) Essential (primary) hypertension (07/09/23) Longstanding persistent atrial fibrillation (07/09/23) Chronic diastolic (congestive) heart failure (07/09/23) Pleural effusion, not elsewhere classified (07/09/23) Acute respiratory failure with hypoxia (07/09/23) Biliary acute pancreatitis without necrosis or infection (07/09/23) Drug induced acute pancreatitis without necrosis or infection (07/09/23) Discitis, unspecified, lumbar region (07/09/23) Acute kidney failure, unspecified (07/09/23) Chronic kidney disease, stage 3b (07/09/23) Presence of prosthetic heart valve (07/09/23) Subjective Subjective Feeling tired overall, still feels like her breathing is not back to baseline, abdominal pain when she moves around or when it is pushed on, still having loose bowel movements Objective Data Objective Data Vital Signs: Vital Signs Temp Pulse Resp BP Pulse Ox O2 Del Method O2 Flow Rate 98.5 F 109 H 18 131/61 H 94 CPAP 3 07/15/23 09:05 07/15/23 09:05 07/15/23 09:05 07/15/23 09:05 07/15/23 09:05 07/15/23 09:05 07/15/23 09:05 FiO2 4 07/10/23 08:00 Oxygen Flow Rate (L/min) 3 Oxygen Delivery Method CPAP Weight: 138.9 kg Body Mass Index (BMI) 49.4 Intake & Output: Intake and Output for Last 24 Hours 07/13/23 07/14/23 07/15/23 23:59 23:59 23:59 Intake Total 825 / 825 765 / 765 150 / 150 Output Total 525 / 525 800 / 800 400 / 400 Balance 300 / 300 -35 / -35 -250 / -250 Lab / Micro Data 07/15/23 07:54 07/15/23 07:54 Labs: Laboratory Results - last 24 hr 07/13/23 04:23: Vitamin B12 1820 H 07/14/23 05:04: Total Bilirubin 0.40, Direct Bilirubin 0.17, AST 17, ALT 13, Alkaline Phosphatase 119 H, Total Protein 5.9 L, Albumin 1.9 L, Globulin 4.0 07/15/23 07:54: WBC 19.2 H, RBC 3.02 L, Hgb 8.6 L, Hct 28.2 L, MCV 93.4, MCH 28.5, MCHC 30.5 L, RDW Std Deviation 49.8 H, RDW Coeff of Fariba 14.6, Plt Count 271, MPV 11.1, Immature Gran % (Auto) 2.300 H, Neut % (Auto) 90.9 H, Lymph % (Auto) 3.6 L, Elliott % (Auto) 2.6, Eos % (Auto) 0.2, Baso % (Auto) 0.4, Absolute Neuts (auto) 17.4 H, Absolute Lymphs (auto) 0.69 L, Nucleated RBC % 0, Sodium 141, Potassium 3.6, Chloride 117 H, Carbon Dioxide 16.0 L, BUN 39 H, Creatinine 1.96 H, Estim Creat Clear Calc 21.43, Est GFR (MDRD) Af Amer 32 L, Est GFR (MDRD) Non-Af 26 L, BUN/Creatinine Ratio 19.9, Glucose 115 H, Calcium 8.4 L, Phosphorus 3.4, Magnesium 2.4, Albumin 1.8 L, Vancomycin Trough 20.1 H Micro: Microbiology 07/09/23 14:05 Blood Culture (Wb) - Port Blood Culture - Final No growth in 5 days. 07/09/23 13:20 Blood Culture (Wb) - Port Blood Culture - Final No growth in 5 days. 07/13/23 16:29 Stool C. difficile DNA Amplification - Final Physical Exam Narrative General: Alert, oriented, no acute distress HEENT: Atraumatic, normocephalic Eyes: Anicteric, normal conjunctiva, extraocular movements grossly intact Neck: Supple Respiratory: Somewhat diminished at the bases, likely secondary to body habitus Cardiovascular: Slightly tachycardic GI: Not particularly tender unless deep palpation today Extremities: trace LE pitting edema Musculoskeletal: Moving all extremities Neuro: No overt focal neurological deficits Skin: Some chronic lower extremity changes Psych: Cooperative Assessment & Plan Assessment/Plan (1) Acute gallstone pancreatitis: (2) Acute hypoxemic respiratory failure: (3) Chronic diastolic (congestive) heart failure: (4) Essential (primary) hypertension: (5) H/O aortic valve replacement: (6) Longstanding persistent atrial fibrillation: PLAN: Plan 78-year-old female is being admitted in ICU after sudden onset of predominantly severe epigastric and RUQ abdominal pain, low blood pressure 89/43, nausea with dry heaves, sent to ED from infusion center where she was getting vancomycin and Rocephin for history of discitis and high leverage suggestive of acute pancreatitis. No fever. She had 2 BM in the morning on the day of admission #Acute pancreatitis -Lipase >5000 w/ imaging consistent with pancreatitis. CT abdomen individually reviewed and shows inflammation around gallbladder and pancreas, multiple gallstones with GB wall thickening and pericholecystic fluid suggesting cholecystitis. But gallbladder not distended. Patient was evaluated by surgeon and there is anticipation of laparoscopic surgery after pancreatitis resolved. Hematocrit on admission was 29% currently 34.3. BUN 14. Heart rate and blood pressure in acceptable limit. Hematocrit 29.8 and BUN 14 within acceptable limit. Continue IV fluid. Pain medication Dilaudid. -Patient already on vancomycin and Rocephin for history of discitis, and Rocephin was changed to Zosyn. -N.p.o. IV fluid. 07/11: Mild leukocytosis worse than yesterday. Patient on IV antibiotics. 07/12 leukocytosis worsening. Patient on IV antibiotics. No fever. Blood culture negative for 48 hours. 07/13: Patient does not have fever but leukocytosis worsening. Gradually went worse from normal to 17.2 thousand. She is covered with antibiotics vancomycin and Zosyn unclear whether it is from medication or other inflammatory condition. CT abdomen without contrast ordered. Discussed with the surgeon. 07/14: CT abdomen reviewed. It was similar finding as previous CT scan. Multiple gallstones. Increased ascites in the abdomen and pelvis. Degenerative changes in the spine with endplate irregularity at L2-3 on right and the diagnosis of discitis/osteomyelitis. Patient is on IV antibiotics. Stool for C. difficile negative. -07/15: Patient for HIDA today #Recent discitis -ID was consulted and note reviewed. Patient to stop date of vancomycin and ceftriaxone 07/21/2023. Back pain overall much improved. Pancreatitis is a rare reported reaction with ceftriaxone so could be a possible cause. Currently on vancomycin and Zosyn. 07/14: Vanco trough level was normal limit. Pharmacy is following the Vanco limit. Blood cultures x2 negative for 48 hours. -07/15: Infectious disease following, will have stop date of 07/21 for antibiotics #Acute hypoxia/Hx chronic HFpEF per documentation/Hx AV bioprosthetic rep lacement/AARTI with CPAP -Patient 75% on room air in ED improved to 92% on 6 L, Currently on 4 L of ox ygen. -Most recent echo February 2023 with PASP of 70, bioprosthetic aortic valve and EF of 60%, no comment on diastolic function but has documentation in chart of heart failure with preserved ejection fraction -Left pleural effusion noted on CT scan, overall fairly minimal -Patient was put on Ventimask and then BiPAP and sericulture teacher was consulted. During the day patient improved and is stable for transfer out of ICU. 07/11: Patient visibly looks short of breath. Chest x-ray portable ordered. Lasix 40 mg IV ordered. 07/13: Repeat chest x-ray PA and lateral ordered. No maggie crepitations on aus cultation. -07/15: Is improving but still does not feel back to baseline, continue home CPAP #LUIS ALBERTO on CKD stage IIIb: 07/11: Patient creatinine went up1.68. Her baseline is around 1.2. The patient CT abdomen pelvis with IV contrast on 07/09/2023 so possible contrast related nephrotoxicity but it was 2 days ago. Patient is on IV fluid normal saline but seems fluid overload and lung condition therefore chest x-ray and furosemide ordered. Monitor kidney function further worsening will need nephrology consult. Medications reviewed and does not seem any in nephrotoxic medications. ID prefer to continue vancomycin and Zosyn dose needs to be adjusted. 07/12: Creatinine went up to 2.0. BUN 35. Anion gap 8, bicarb 18. Sodium and chloride on higher side. Discussed with the human resources assistant manager. Patient treated for 7 L of positive fluid balance and was short of breath and lung crepitation therefore Lasix 40 mg IV 1 dose was given yesterday. We agreed on just monitor ing without giving IV fluids or diuretics. 07/13: Creatinine seems better. Discussed with the human resources assistant manager. Total positive 7.7 L positive fluid balance. Urine output about 450 mL. Urine electrolytes ordered. 07/14: BUNs/creatinine 36/1.83. Discussed with the human resources assistant manager. Encouraged IV fluid. Kidney function gradually improving. Avoid nephrotoxic medications. Anion gap normal, normal anion gap metabolic acidosis. Mild hypokalemia potassium getting replaced. -07/15: Slightly worse today, encourage oral intake, nephrology following #GERD -Continue PPI #afib -Patient reports chronic A-fib but has had multiple GI bleeds most recently in February so has been taken off of all anticoagulation -She is undergoing evaluation for Watchman which is the ultimate goal patient is still in A-fib. -07/15: If further tachycardia may need rate control #pulmonary HTN: She was started in October 2022 on treprostinil for pulmonary hypertension by Dr. Nelson and dose has gradually been increased. Patient on treprostinil 4.5 mg tablet 3 times a day an additional 0.125 mg on every Saturday until final goal is achieved. Currently it is on hold. I called Dr. Nelson phone and left a voicemail to call back. 07/[address] Nelson yesterday and today but did not call back. Left a voice message 07/13: Discussed with our threat analyst, Dr. Cartagena. Cannot discontinue treprostinil as patient can have rebound pulmonary hypertension with risk of cardiac arrest. 07/14: Patient has diarrhea of 4-5 bowel movements since the beginning of the starting treprostinil. -07/15: We will need to follow-up with her threat analyst #Chronic anemia -Does not appear to be acutely bleeding 07/13: Hemoglobin slight drop to 8.9 from baseline around 10.2. Monitor CBC. Patient had recent iron work-up on April 2023 which shows iron 48, TIBC low normal at 268 iron saturation 18% and ferritin 197 suggestive of inflammatory anemia/anemia of chronic disease. 07/14: H&H 8.8/29%. Platelet count 287,000. #Morbid obesity -BMI 49.4 kg/m? -Complicates treatment, prognosis, outcomes -Recommend weight loss and lifestyle changes #DVT ppx: Lovenox subcu Charges/Coding Visit Charges Inpatient E&M: 14335 Subs Hosp L2
--- NOTE | 2023-07-15 11:02 | NM_ITS ---
CLINICAL: 78-year-old female with history of right upper quadrant abdominal pain. RADIONUCLIDE HEPATOBILIARY SCINTIGRAPHY COMPARISON: CT of the abdomen-pelvis report of 07/13/2023 FINDINGS: Following the intravenous administration of 5.6 mCi of 99m Tc Mebrofenin, hepatobiliary images reveal: 1. Relatively prompt and homogeneous radiopharmaceutical concentration is noted by a normal sized liver. No parenchymal defects are identified. 2. Gallbladder activity is identified at approximately 12 minutes post radiopharmaceutical administration. 3. Small intestinal tract is observed at 17 minutes following tracer injection. 4. Washout of the radiopharmaceutical by the hepatic parenchyma appears qualitatively normal. NM/Hepatobilliary Imaging IMPRESSION: 1. NORMAL 99m Tc Mebrofenin hepatobiliary imaging examination. A. Visualization of the gallbladder within 60 minutes post radiopharmaceutical administration excludes acute cholecystitis with 97% certitude. (Jamaal et al, Nucl Med [employer] pg. 35, 1980). Electronically Signed: Keenan Connolly DO at 14:45 EST ,
[2023-07-15] MEDS: Pramipexole Di-HCl 0.125 MG Tablet PO (20:26)
[2023-07-15 23:00] VITALS: BP 139/55; PULSE 88; RESP 16; TEMP 36.5; O2SAT 96
[2023-07-16 04:17] VITALS: BMI 23.1
[2023-07-16 04:25] VITALS: BP 138/56; PULSE 96; RESP 16; TEMP 36.6; O2SAT 96
[2023-07-16] MEDS: Piperacil/Tazobactam 3.375 GM in 0.9% Normal Saline (50mL MB+) 50 ML IV ×2 (04:56→17:33)
[2023-07-16] MEDS: SILDENAFIL CITRATE 20 MG TABLET PO ×3 (04:57→20:02)
[2023-07-16 07:07] LABS: Haptoglobin 356 mg/dL (42-346)
[2023-07-16 07:37] LABS: Absolute Lymphocyte Count 0.57 X10^3/uL (0.83-4.51); Absolute Neutrophil Count 15.4 X10^3/uL (2.0-7.7); Basophil# 0.04 X10^3/uL; Basophil% 0.2 % (0-1); Eosinophil# 0.11 X10^3/uL; Eosinophils% 0.6 % (0-5); Hematocrit 27.6 % (37-47); Hemoglobin 8.3 g/dL (12.0-15.0); Lymphocyte # 0.57 X10^3/ul (0.83-4.51); Lymphocyte % 3.4 % (19-41); Mean Corp Hgb Conc 30.1 g/dL (32-36); Mean Corpuscular Hgb 28.3 pg (27.0-32.0); Mean Corpuscular Volume 94.2 fL (81-99); Mean Platelet Vol. 11.1 fl (6.2-12.0); Monocyte# 0.55 X10^3/uL; Monocyte% 3.2 % (0-10); NRBC Flagged by Analyzer 0 % (0-5); Neutrophil # 15.38 X10^3/uL (2.7-7.7); Neutrophil % 90.5 % (47-70); POSITIVE DIFFERENTIAL YES; Platelet Count 244 K/mm3 (150-450); RBC Distribution Width CV 14.5 % (11.6-14.6); RBC Distribution Width SD 49.3 fl (35.1-43.9); Red Blood Count 2.93 M/mm3 (4.2-5.4)
[2023-07-16 07:41] LABS: Differential Indicated SCAN CRITERIA MET
[2023-07-16 07:51] LABS: Anion Gap 5 (5-15); BUN 40 mg/dL (7-18); BUN/Creat Ratio 18.3 RATIO (10-20); Calcium,Total 8.7 mg/dL (8.5-10.1); Chloride 115 mmol/L (98-107); Creatinine, Serum 2.18 mg/dL (0.55-1.02); EST Glomerular Filtration Rate 23 mL/min (>60); Est Glom Filt Rate - Afr Amer 28 mL/min (>60); Estimated Creatinine Clearance 19.27 ml/min; Glucose 120 mg/dL (74-106); Potassium 3.4 mmol/L (3.5-5.1); Sodium Level 140 mmol/L (136-145)
--- NOTE | 2023-07-16 07:52 | PN.SURG_ITS ---
Subjective Subjective She said her pain is improved from yesterday. She did states she felt full quickly after clear liquids. Objective Data Objective Data Vital Signs: Vital Signs Temp Pulse Resp BP Pulse Ox O2 Del Method O2 Flow Rate 97.8 F 96 16 138/56 H 96 CPAP 3 07/16/23 04:25 07/16/23 04:25 07/16/23 04:25 07/16/23 04:25 07/16/23 04:25 07/16/23 04:25 07/15/23 09:05 FiO2 4 07/10/23 08:00 Oxygen Flow Rate (L/min) 3 Oxygen Delivery Method CPAP Weight: 142 lb 15.012 oz Body Mass Index (BMI) 23.1 Intake & Output: Intake and Output for Last 24 Hours 07/14/23 07/15/23 07/16/23 23:59 23:59 23:59 Intake Total 765 / 765 700 / 800 200 / 200 Output Total 800 / 800 950 / 1300 700 / 700 Balance -35 / -35 -250 / -500 -500 / -500 Lab / Micro Data 07/16/23 07:18 07/16/23 07:18 Labs: Laboratory Results - last 24 hr 07/13/23 04:23: Haptoglobin 356 H, Vitamin B12 1820 H 07/15/23 07:54: WBC 19.2 H, RBC 3.02 L, Hgb 8.6 L, Hct 28.2 L, MCV 93.4, MCH 28.5, MCHC 30.5 L, RDW Std Deviation 49.8 H, RDW Coeff of Fariba 14.6, Plt Count 271, MPV 11.1, Immature Gran % (Auto) 2.300 H, Neut % (Auto) 90.9 H, Lymph % (Auto) 3.6 L, [place] % (Auto) 2.6, Eos % (Auto) 0.2, Baso % (Auto) 0.4, Absolute Neuts (auto) 17.4 H, Absolute Lymphs (auto) 0.69 L, Nucleated RBC % 0, Sodium 141, Potassium 3.6, Chloride 117 H, Carbon Dioxide 16.0 L, BUN 39 H, Creatinine 1.96 H, Estim Creat Clear Calc 21.43, Est GFR (MDRD) Af Amer 32 L, Est GFR (MDRD) Non-Af 26 L, BUN/Creatinine Ratio 19.9, Glucose 115 H, Calcium 8.4 L, Phosphorus 3.4, Magnesium 2.4, Albumin 1.8 L, Vancomycin Trough 20.1 H 07/16/23 07:18: WBC 17.0 H, RBC 2.93 L, Hgb 8.3 L, Hct 27.6 L, MCV 94.2, MCH 28 .3, MCHC 30.1 L, RDW Std Deviation 49.3 H, RDW Coeff of Fariba 14.5, Plt Count 244, MPV 11.1, Immature Gran % (Auto) 2.100 H, Neut % (Auto) 90.5 H, Lymph % (Auto) 3.4 L, [place] % (Auto) 3.2, Eos % (Auto) 0.6, Baso % (Auto) 0.2, Absolute Neuts (auto) 15.4 H, Absolute Lymphs (auto) 0.57 L, Nucleated RBC % 0, Sodium 140, Potassium 3.4 L, Chloride 115 H, Carbon Dioxide 20.0 L, Anion Gap 5, BUN 40 H, Creatinine 2.18 H, Estim Creat Clear Calc 19.27, Est GFR (MDRD) Af Amer 28 L, Est GFR (MDRD) Non-Af 23 L, BUN/Creatinine Ratio 18.3, Glucose 120 H, Calcium 8.7 Micro: Microbiology 07/09/23 14:05 Blood Culture (Wb) - Port Blood Culture - Final No growth in 5 days. 07/09/23 13:20 Blood Culture (Wb) - Port Blood Culture - Final No growth in 5 days. 07/13/23 16:29 Stool C. difficile DNA Amplification - Final Radiography Diagnostic Testing: Radiology Impression Hepatobiliary Scan Nuclear Medicine 07/15/23 11:02 IMPRESSION: 1. NORMAL 99m Tc Mebrofenin hepatobiliary imaging examination. A. Visualization of the gallbladder within 60 minutes post radiopharmaceutical administration excludes acute cholecystitis with 97% certitude. (Jamaal et al, Nucl Med [employer] pg. 35, 1980). Electronically Signed: Keenan Connolly DO at 14:45 EST , Physical Exam Const oriented x3 Resp normal respiratory effort Cardio regular rate and regular rhythm GI soft to palpation Palpation: tender RUQ Assessment & Plan Assessment/Plan (1) Acute pancreatitis: QUALIFIERS: Pancreatitis type: drug induced Acute pancreatitis complication: no infection or necrosis Qualified Code(s): K85.30 - Drug induced acute pancreatitis without necrosis or infection PLAN: The patient has acute pancreatitis of unknown etiology. Unsure if it is a drug reaction. I performed a HIDA yesterday as her white count was coming up and the HIDA showed filling of the gallbladder indicating she does not have acute cholecystitis. She did tolerate clear liquids but says she got full quickly but it did not reproduce pain or make anything worse. I will try to advance her to full liquid diet today and see if she tolerates that. At this time I do not have any plans to take out her gallbladder. Bo Madrid MD Pager: [facility] [address] [place] [address], [address] [place] [address] Office:
[2023-07-16 08:31] VITALS: BP 153/65; PULSE 89; RESP 14; TEMP 37; O2SAT 2
[2023-07-16] MEDS: Pantoprazole Sodium 40 MG Tablet PO (08:34)
[2023-07-16] MEDS: Enoxaparin 30 MG/0.3 ML Syringe SC (08:34)
[2023-07-16] MEDS: Menthol/Lanolin/Calamine/Znox 113 GM Tube 1 APPLIC TOPICAL ×2 (08:34→20:00)
[2023-07-16 08:55] LABS: Differential Comment SCANNED
[2023-07-16] MEDS: Vancomycin IV 1,000 MG/200 ML BAG 200 MG IV (09:08)
--- NOTE | 2023-07-16 09:59 | PCM.PN.HOSP ---
Reason for Visit Reason for Visit: Diagnoses Acute metabolic acidosis (07/09/23) Essential (primary) hypertension (07/09/23) Longstanding persistent atrial fibrillation (07/09/23) Chronic diastolic (congestive) heart failure (07/09/23) Pleural effusion, not elsewhere classified (07/09/23) Acute respiratory failure with hypoxia (07/09/23) Biliary acute pancreatitis without necrosis or infection (07/09/23) Drug induced acute pancreatitis without necrosis or infection (07/09/23) Discitis, unspecified, lumbar region (07/09/23) Acute kidney failure, unspecified (07/09/23) Chronic kidney disease, stage 3b (07/09/23) Presence of prosthetic heart valve (07/09/23) Subjective Subjective Patient sat up in chair for period of time today and was very tired to go back in bed and taking a nap with CPAP on. Thus far tolerating her full liquid diet, breathing roughly the same Objective Data Objective Data Vital Signs: Vital Signs Temp Pulse Resp BP Pulse Ox O2 Del Method O2 Flow Rate 98.6 F 89 14 153/65 H 2 Nasal Cannula 2 07/16/23 08:31 07/16/23 08:31 07/16/23 08:31 07/16/23 08:31 07/16/23 08:31 07/16/23 08:46 07/16/23 08:46 FiO2 4 07/10/23 08:00 Oxygen Flow Rate (L/min) 2 Oxygen Delivery Method Nasal Cannula Weight: 64.836 kg Body Mass Index (BMI) 23.1 Intake & Output: Intake and Output for Last 24 Hours 07/14/23 07/15/23 07/16/23 23:59 23:59 23:59 Intake Total 765 / 765 700 / 800 250 / 250 Output Total 800 / 800 950 / 1300 700 / 700 Balance -35 / -35 -250 / -500 -450 / -450 Lab / Micro Data 07/16/23 07:18 07/16/23 07:18 Labs: Laboratory Results - last 24 hr 07/13/23 04:23: Haptoglobin 356 H 07/16/23 07:18: WBC 17.0 H, RBC 2.93 L, Hgb 8.3 L, Hct 27.6 L, MCV 94.2, MCH 28.3, MCHC 30.1 L, RDW Std Deviation 49.3 H, RDW Coeff of Fariba 14.5, Plt Count 244, MPV 11.1, Immature Gran % (Auto) 2.100 H, Neut % (Auto) 90.5 H, Lymph % (Auto) 3.4 L, [place] % (Auto) 3.2, Eos % (Auto) 0.6, Baso % (Auto) 0.2, Absolute Neuts (auto) 15.4 H, Absolute Lymphs (auto) 0.57 L, Nucleated RBC % 0, Differential Comment SCANNED, Sodium 140, Potassium 3.4 L, Chloride 115 H, Carbon Dioxide 20.0 L, Anion Gap 5, BUN 40 H, Creatinine 2.18 H, Estim Creat Clear Calc 19.27, Est GFR (MDRD) Af Amer 28 L, Est GFR (MDRD) Non-Af 23 L, BUN/Creatinine Ratio 18.3, Glucose 120 H, Calcium 8.7 Micro: Microbiology 07/09/23 14:05 Blood Culture (Wb) - Port Blood Culture - Final No growth in 5 days. 07/09/23 13:20 Blood Culture (Wb) - Port Blood Culture - Final No growth in 5 days. 07/13/23 16:29 Stool C. difficile DNA Amplification - Final Radiography Diagnostic Testing: Radiology Impression Hepatobiliary Scan Nuclear Medicine 07/15/23 11:02 IMPRESSION: 1. NORMAL 99m Tc Mebrofenin hepatobiliary imaging examination. A. Visualization of the gallbladder within 60 minutes post radiopharmaceutical administration excludes acute cholecystitis with 97% certitude. (Jamaal et al, Nucl Med [employer] pg. 35, 1980). Electronically Signed: Keenan Connolly DO at 14:45 EST , Physical Exam Narrative General: Alert, oriented, no acute distress HEENT: Atraumatic, normocephalic Eyes: Anicteric, normal conjunctiva, extraocular movements grossly intact Neck: Supple Respiratory: Somewhat diminished at the bases, likely secondary to body habitus Cardiovascular: Slightly tachycardic GI: Not particularly tender unless deep palpation today Extremities: trace LE pitting edema Musculoskeletal: Moving all extremities Neuro: No overt focal neurological deficits Skin: Some chronic lower extremity changes Psych: Cooperative Assessment & Plan Assessment/Plan (1) Acute gallstone pancreatitis: (2) Acute hypoxemic respiratory failure: (3) Chronic diastolic (congestive) heart failure: (4) Essential (primary) hypertension: (5) H/O aortic valve replacement: (6) Longstanding persistent atrial fibrillation: PLAN: Plan 78-year-old female is being admitted in ICU after sudden onset of predominantly severe epigastric and RUQ abdominal pain, low blood pressure 89/43, nausea with dry heaves, sent to ED from infusion center where she was getting vancomycin and Rocephin for history of discitis and high leverage suggestive of acute pancreatitis. No fever. She had 2 BM in the morning on the day of admission #Acute pancreatitis -Lipase >5000 w/ imaging consistent with pancreatitis. CT abdomen individually reviewed and shows inflammation around gallbladder and pancreas, multiple gallstones with GB wall thickening and pericholecystic fluid suggesting cholecystitis. But gallbladder not distended. Patient was evaluated by surgeon and there is anticipation of laparoscopic surgery after pancreatitis resolved. Hematocrit on admission was 29% currently 34.3. BUN 14. Heart rate and blood pressure in acceptable limit. Hematocrit 29.8 and BUN 14 within acceptable limit. Continue IV fluid. Pain medication Dilaudid. -Patient already on vancomycin and Rocephin for history of discitis, and Rocephin was changed to Zosyn. -N.p.o. IV fluid. 07/11: Mild leukocytosis worse than yesterday. Patient on IV antibiotics. 07/12 leukocytosis worsening. Patient on IV antibiotics. No fever. Blood culture negative for 48 hours. 07/13: Patient does not have fever but leukocytosis worsening. Gradually went worse from normal to 17.2 thousand. She is covered with antibiotics vancomycin and Zosyn unclear whether it is from medication or other inflammatory condition. CT abdomen without contrast ordered. Discussed with the surgeon. 07/14: CT abdomen reviewed. It was similar finding as previous CT scan. Multiple gallstones. Increased ascites in the abdomen and pelvis. Degenerative changes in the spine with endplate irregularity at L2-3 on right and the diagnosis of discitis/osteomyelitis. Patient is on IV antibiotics. Stool for C. difficile negative. -07/15: Patient for HIDA today -07/16: HIDA negative, diet advanced to fulls, no plans for cholecystectomy #Recent discitis -ID was consulted and note reviewed. Patient to stop date of vancomycin and ceftriaxone 07/21/2023. Back pain overall much improved. Pancreatitis is a rare reported reaction with ceftriaxone so could be a possible cause. Currently on vancomycin and Zosyn. 07/14: Vanco trough level was normal limit. Pharmacy is following the Vanco limit. Blood cultures x2 negative for 48 hours. -07/15: Infectious disease following, will have stop date of 07/21 for antibiotics #Acute hypoxia/Hx chronic HFpEF per documentation/Hx AV bioprosthetic replacement/AARTI with CPAP -Patient 75% on room air in ED improved to 92% on 6 L, Currently on 4 L of oxygen. -Most recent echo February 2023 with PASP of 70, bioprosthetic aortic valve and EF of 60%, no comment on diastolic function but has documentation in chart of heart failure with preserved ejection fraction -Left pleural effusion noted on CT scan, overall fairly minimal -Patient was put on Ventimask and then BiPAP and section weaver was consulted. During the day patient improved and is stable for transfer out of ICU. 07/11: Patient visibly looks short of breath. Chest x-ray portable ordered. Lasix 40 mg IV ordered. 07/13: Repeat chest x-ray PA and lateral ordered. No maggie crepitations on auscultation. -07/15: Is improving but still does not feel back to baseline, continue home CPAP #LUIS ALBERTO on CKD stage IIIb: 07/11: Patient creatinine went up1.68. Her baseline is around 1.2. The patient CT abdomen pelvis with IV contrast on 07/09/2023 so possible contrast related nephrotoxicity but it was 2 days ago. Patient is on IV fluid normal saline but seems fluid overload and lung condition therefore chest x-ray and furosemide ordered. Monitor kidney function further worsening will need nephrology consult. Medications reviewed and does not seem any in nephrotoxic medications. ID prefer to continue vancomycin and Zosyn dose needs to be adjusted. 07/12: Creatinine went up to 2.0. BUN 35. Anion gap 8, bicarb 18. Sodium and chloride on higher side. Discussed with the body shop mechanic. Patient treated for 7 L of positive fluid balance and was short of breath and lung crepitation therefore Lasix 40 mg IV 1 dose was given yesterday. We agreed on just monitoring without giving IV fluids or diuretics. 07/13: Creatinine seems better. Discussed with the body shop mechanic. Total positive 7.7 L positive fluid balance. Urine output about 450 mL. Urine electrolytes ordered. 07/14: BUNs/creatinine 36/1.83. Discussed with the body shop mechanic. Encouraged IV fluid. Kidney function gradually improving. Avoid nephrotoxic medications. Anion gap normal, normal anion gap metabolic acidosis. Mild hypokalemia potassium getting replaced. -07/15: Slightly worse today, encourage oral intake, nephrology following -07/16: Worsening in slightly, discussed with nephrology, it is felt given patient's poor p.o. intake and receiving dye earlier in her hospital stay that this combination may have led to her worsening kidney function, patient advance to full's, encourage p.o. and will recheck tomorrow, no present indication for CRRT. #GERD -Continue PPI #afib -Patient reports chronic A-fib but has had multiple GI bleeds most recently in February so has been taken off of all anticoagulation -She is undergoing evaluation for Watchman which is the ultimate goal patient is still in A-fib. -07/15: If further tachycardia may need rate control -07/16: Patient seems to primarily be tachycardic when she gets up and moves around, suspect this is physiologic and largely due to deconditioning and possibly with a component of being intravascularly down, patient's diet advanced today #pulmonary HTN: She was started in October 2022 on treprostinil for pulmonary hypertension by Dr. Nelson and dose has gradually been increased. Patient on treprostinil 4.5 mg tablet 3 times a day an additional 0.125 mg on every Saturday until final goal is achieved. Currently it is on hold. I called Dr. Nelson phone and left a voicemail to call back. 07/[address] Nelson yesterday and today but did not call back. Left a voice message 07/13: Discussed with our hogshead cooper, Dr. Cartagena. Cannot discontinue treprostinil as patient can have rebound pulmonary hypertension with risk of cardiac arrest. 07/14: Patient has diarrhea of 4-5 bowel movements since the beginning of the starting treprostinil. -07/15: We will need to follow-up with her hogshead cooper #Chronic anemia -Does not appear to be acutely bleeding 07/13: Hemoglobin slight drop to 8.9 from baseline around 10.2. Monitor CBC. Patient had recent iron work-up on April 2023 which shows iron 48, TIBC low normal at 268 iron saturation 18% and ferritin 197 suggestive of inflammatory anemia/anemia of chronic disease. 07/14: H&H 8.8/29%. Platelet count 287,000. #Morbid obesity -BMI 49.4 kg/m? -Complicates treatment, prognosis, outcomes -Recommend weight loss and lifestyle changes #DVT ppx: Lovenox subcu Charges/Coding Visit Charges Inpatient E&M: 98066 Subs Hosp L2
--- NOTE | 2023-07-16 10:57 | PN.RENAL_ITS ---
Subjective Subjective Sitting in recliner chair. Denies any complaints. No overnight events. Objective Data Objective Data Vital Signs: Vital Signs Temp Pulse Resp BP Pulse Ox O2 Del Method O2 Flow Rate 98.6 F 89 14 153/65 H 2 Nasal Cannula 2 07/16/23 08:31 07/16/23 08:31 07/16/23 08:31 07/16/23 08:31 07/16/23 08:31 07/16/23 08:46 07/16/23 08:46 FiO2 4 07/10/23 08:00 Oxygen Flow Rate (L/min) 2 Oxygen Delivery Method Nasal Cannula Weight: 64.836 kg Body Mass Index (BMI) 23.1 Intake & Output: Intake and Output for Last 24 Hours 07/14/23 07/15/23 07/16/23 23:59 23:59 23:59 Intake Total 765 / 765 700 / 800 550 / 550 Output Total 800 / 800 950 / 1300 700 / 700 Balance -35 / -35 -250 / -500 -150 / -150 Lab / Micro Data 07/16/23 07:18 07/16/23 07:18 Labs: Laboratory Results - last 24 hr 07/13/23 04:23: Haptoglobin 356 H 07/16/23 07:18: WBC 17.0 H, RBC 2.93 L, Hgb 8.3 L, Hct 27.6 L, MCV 94.2, MCH 28.3, MCHC 30.1 L, RDW Std Deviation 49.3 H, RDW Coeff of Fariba 14.5, Plt Count 244, MPV 11.1, Immature Gran % (Auto) 2.100 H, Neut % (Auto) 90.5 H, Lymph % (Auto) 3.4 L, [place] % (Auto) 3.2, Eos % (Auto) 0.6, Baso % (Auto) 0.2, Absolute Neuts (auto) 15.4 H, Absolute Lymphs (auto) 0.57 L, Nucleated RBC % 0, D ifferential Comment SCANNED, Sodium 140, Potassium 3.4 L, Chloride 115 H, Carbon Dioxide 20.0 L, Anion Gap 5, BUN 40 H, Creatinine 2.18 H, Estim Creat Clear Calc 19.27, Est GFR (MDRD) Af Amer 28 L, Est GFR (MDRD) Non-Af 23 L, BUN/Creatinine Ratio 18.3, Glucose 120 H, Calcium 8.7 Micro: Microbiology 07/09/23 14:05 Blood Culture (Wb) - Port Blood Culture - Final No growth in 5 days. 07/09/23 13:20 Blood Culture (Wb) - Port Blood Culture - Final No growth in 5 days. 07/13/23 16:29 Stool C. difficile DNA Amplification - Final Radiography Diagnostic Testing: Radiology Impression Hepatobiliary Scan Nuclear Medicine 07/15/23 11:02 IMPRESSION: 1. NORMAL 99m Tc Mebrofenin hepatobiliary imaging examination. A. Visualization of the gallbladder within 60 minutes post radiopharmaceutical administration excludes acute cholecystitis with 97% certitude. (Jamaal et al, Nucl Med [employer] pg. 35, 1980). Electronically Signed: Keenan Connolly, at 14:45 EST , Physical Exam Narrative Alert and oriented x3, NAD. Normal S1, S2. No rubs, murmurs, or gallops. Lungs sound is decreased at bases. No wheezing, rhonchi, or rales. abdomen soft, non tonder trace to 1+ edema of the lower extremities bilaterally Assessment & Plan Assessment/Plan (1) Acute kidney injury: (2) Chronic kidney disease, stage 3b: (3) Acute metabolic acidosis: PLAN: Plan Impression/Plan: 78-year-old woman with past history of chronic kidney disease stage G3b, type 2 diabetes mellitus, hypertension, CAD, HFpEF, aortic stenosis status post replacement, atrial fibrillation, pulmonary hypertension on treprostinil, GERD, and iron deficiency anemia. The patient was admitted to the hospital on 07/09/2023 with gallstone pancreatitis. She has also been treated for acute hypoxic respiratory failure attributed to HFpEF with diuresis. Nephrology is following for LUIS ALBERTO on CKD. Acute kidney injury on chronic kidney disease stage G3b. Baseline serum creatinine has been around 1.3 to 1.5 mg/dL prior to this admission. The patient likely has underlying CKD due to diabetic kidney disease. Acute kidney injury is likely due to prerenal azotemia. Also to note patient did have CT with IV contrast on 07/09. Today creatinine is 2.18 mg/dL. Overall renal function remains stable, no acute indication for SALES ENGINEER ACCOUNT MANAGER, potassium and acid/base acceptable and patient is non-oliguric. There was no evidence of urinary tract obstruction on CT abdomen/pelvis on 07/09/2023. Urinalysis and fractional secretion of sodium less than 1% are consistent with prerenal LUIS ALBERTO. Intravascular volume may be on the lower side given her presentation with pancreatitis/NPO which can cause third spacing of fluid. Do not recommend further diuresis today. Patient is on full liquid diet. Recommend continuing to let patient hydrate/take solute on her own again today. Acute metabolic acidosis. suspect that acute metabolic acidosis may be due to LUIS ALBERTO on CKD and loose bowel movements. Stool for cdiff negative. acute pancreatitis; on Vanco and Zosyn per ID. Recommend close monitoring Vanco levels given LUIS ALBERTO. HIDA scan did not show acute cholecystitis.
[2023-07-16] MEDS: Potassium Chloride Oral Tablet 20 MEQ PO (11:55)
--- NOTE | 2023-07-16 14:59 | CASEMGMT ---
LELE BEGUM in to discuss discharge planning. LELE BEGUM reviewed progress with therapy and need for IV antibiotics. Patient and discussed with daughter and would like to go to TCU if available, [facility] is second choice. Patent and had no further questions or concerns. LELE BEGUM updated SW regarding requests for TCU.
[2023-07-16 15:00] VITALS: O2SAT 95
--- NOTE | 2023-07-16 15:15 | CASEMGMT ---
Per RN CM patient would like a referral sent to [facility]. SW [facility] a [facility] [employer] Ermelinda Gutierrez JEWEL HOLE ROUGH OPENER GIANA
[2023-07-16] MEDS: Pramipexole Di-HCl 0.125 MG Tablet PO (20:01)
[2023-07-16 22:00] VITALS: BP 132/53; PULSE 93; RESP 18; TEMP 36.3; O2SAT 99
[2023-07-16 23:26] VITALS: BMI 50.9
[2023-07-17] VITALS (8 sets, daily range): BP systolic 119–178; BP diastolic 45–55; PULSE 84–112; RESP 16–26; TEMP 36.6–37.2; O2SAT 94–98
[2023-07-17] MEDS: SILDENAFIL CITRATE 20 MG TABLET PO ×3 (05:49→22:05)
[2023-07-17] MEDS: Piperacil/Tazobactam 3.375 GM in 0.9% Normal Saline (50mL MB+) 50 ML IV ×2 (05:49→17:24)
--- NOTE | 2023-07-17 07:57 | PCM.PN.SRG ---
Subjective Subjective The patient is still having some epigastric pain but she did tolerate full liquids yesterday with no nausea or vomiting. Objective Data Objective Data Vital Signs: Vital Signs Temp Pulse Resp BP Pulse Ox O2 Del Method O2 Flow Rate 98 F 93 18 135/55 H 95 Nasal Cannula 2 07/17/23 03:00 07/17/23 03:00 07/17/23 03:00 07/17/23 03:00 07/17/23 07:27 07/17/23 07:27 07/17/23 07:27 FiO2 4 07/10/23 08:00 Oxygen Flow Rate (L/min) 2 Oxygen Delivery Method Nasal Cannula Weight: 315 lb 11.231 oz Body Mass Index (BMI) 50.9 Intake & Output: Intake and Output for Last 24 Hours 07/15/23 07/16/23 07/17/23 23:59 23:59 23:59 Intake Total 700 / 800 700 / 700 240 / 240 Output Total 950 / 1300 1050 / 1050 350 / 350 Balance -250 / -500 -350 / -350 -110 / -110 Lab / Micro Data 07/16/23 07:18 07/16/23 07:18 Labs: Laboratory Results - last 24 hr 07/16/23 07:18: Differential Comment SCANNED Micro: Microbiology 07/13/23 15:00 Urine, Midstream Urine Culture - Final Melissa albicans 07/09/23 14:05 Blood Culture (Wb) - Port Blood Culture - Final No growth in 5 days. 07/09/23 13:20 Blood Culture (Wb) - Port Blood Culture - Final No growth in 5 days. 07/13/23 16:29 Stool C. difficile DNA Amplification - Final Physical Exam Const oriented x3 Resp normal respiratory effort GI soft to palpation Palpation: tender epigastric Assessment & Plan Assessment/Plan (1) Acute pancreatitis: QUALIFIERS: Pancreatitis type: drug induced Acute pancreatitis complication: no infection or necrosis Qualified Code(s): K85.30 - Drug induced acute pancreatitis without necrosis or infection PLAN: The patient says she tolerated full liquids but she is still having some epigastric tenderness. Unsure if she is developing pseudocyst or more inflammation around the pancreas. At this time I would continue full liquids. If she is doing well from all other aspects she could be discharged home on full liquids instructed not to advance diet until her pain has resolved completely. Otherwise continue medical management. No plans for surgery at this time. Bo Madrid MD Pager: [facility] [address] [place] [address], [address] [place] [address] Office:
[2023-07-17 08:21] LABS: Absolute Lymphocyte Count 0.49 X10^3/uL (0.83-4.51); Absolute Neutrophil Count 13.4 X10^3/uL (2.0-7.7); Basophil# 0.05 X10^3/uL; Basophil% 0.3 % (0-1); Eosinophil# 0.08 X10^3/uL; Eosinophils% 0.5 % (0-5); Hemoglobin 8.5 g/dL (12.0-15.0); Lymphocyte # 0.49 X10^3/ul (0.83-4.51); Lymphocyte % 3.3 % (19-41); Mean Corp Hgb Conc 30.4 g/dL (32-36); Mean Corpuscular Hgb 28.3 pg (27.0-32.0); Mean Corpuscular Volume 93.3 fL (81-99); Monocyte# 0.46 X10^3/uL; Monocyte% 3.1 % (0-10); NRBC Flagged by Analyzer 0 % (0-5); Neutrophil # 13.37 X10^3/uL (2.7-7.7); Neutrophil % 90.6 % (47-70); POSITIVE DIFFERENTIAL YES; Platelet Count 225 K/mm3 (150-450); RBC Distribution Width CV 14.5 % (11.6-14.6); RBC Distribution Width SD 48.7 fl (35.1-43.9); White Blood Count 14.8 K/mm3 (4.4-11.0)
[2023-07-17 08:36] LABS: Differential Indicated SCAN CRITERIA MET
[2023-07-17 09:52] LABS: Anion Gap 11 (5-15); BUN 39 mg/dL (7-18); BUN/Creat Ratio 16.8 RATIO (10-20); Chloride 114 mmol/L (98-107); Creatinine, Serum 2.32 mg/dL (0.55-1.02); EST Glomerular Filtration Rate 22 mL/min (>60); Est Glom Filt Rate - Afr Amer 26 mL/min (>60); Estimated Creatinine Clearance 18.11 ml/min; Glucose 96 mg/dL (74-106); Potassium 3.6 mmol/L (3.5-5.1); Sodium Level 138 mmol/L (136-145)
[2023-07-17] MEDS: Pantoprazole Sodium 40 MG Tablet PO (09:58)
[2023-07-17] MEDS: Enoxaparin 30 MG/0.3 ML Syringe SC (09:59)
[2023-07-17] MEDS: Menthol/Lanolin/Calamine/Znox 113 GM Tube 1 APPLIC TOPICAL ×2 (09:59→22:08)
[2023-07-17 10:25] LABS: Vancomycin, Trough Level 25.3 ug/mL (5.0-15.0)
--- NOTE | 2023-07-17 10:30 | CASEMGMT ---
[facility] is not able to take patient as they have not RN coverage for IV antibiotics. Ermelinda Gutierrez DIRECTIONAL DRILLER GIANA
--- NOTE | 2023-07-17 10:37 | PHA.PHARE_ITS ---
Consult Antibiotic Management Pharmacy has been consulted to manage selected antiobiotic: Vancomycin Type of Intervention Type of Consult: Follow-up Prior Doses of Antibiotics Prior Doses of Antibiotics Received/Current Regimen: current dose is vanc 1000mg IV q24h Labs Labs: Sodium 138 mmol/L (136-145) 07/17/23 07:45 Potassium 3.6 mmol/L (3.5-5.1) 07/17/23 07:45 Chloride 114 mmol/L (98-107) H 07/17/23 07:45 Carbon Dioxide 13.0 mmol/L (21.0-32.0) L 07/17/23 07:45 Anion Gap 11 (5-15) 07/17/23 07:45 BUN 39 mg/dL (7-18) H 07/17/23 07:45 Creatinine 2.32 mg/dL (0.55-1.02) H 07/17/23 07:45 Est GFR (MDRD) Af Amer 26 mL/min (>60) L 07/17/23 07:45 Est GFR (MDRD) Non-Af 22 mL/min (>60) L 07/17/23 07:45 BUN/Creatinine Ratio 16.8 RATIO (10-20) 07/17/23 07:45 Glucose 96 mg/dL (74-106) 07/17/23 07:45 Vancomycin Trough 25.3 ug/mL (5.0-15.0) H 07/17/23 09:42 Random Vancomycin 16.3 ug/mL (0.0-15.0) H 07/13/23 05:40 Microbiology Microbiology: Microbiology 07/13/23 15:00 Urine, Midstream Urine Culture - Final Melissa albicans 07/09/23 14:05 Blood Culture (Wb) - Port Blood Culture - Final No growth in 5 days. 07/09/23 13:20 Blood Culture (Wb) - Port Blood Culture - Final No growth in 5 days. 07/13/23 16:29 Stool C. difficile DNA Amplification - Final Dosing Weight Weight used for dosin.2 kg Estimated Creatinine Clearance Estimated Creatinine Clearance: 28.4ml/min Goal Trough Goal Trough: 15-20 mcg/mL Pharmacy Plan for Drug Dosing Pharmacy Plan for Drug Dosing: The vanc trough drawn at 09:42 today (approx 24.5 hrs after the previous dose) was 25.3. This is above goal so will not give today's dose and hold further dosing at this time. Will order a random level for tomorrow morning with AM labs at 06:00. Will use that level to determine if dosing should be resumed to forsyth at a newly calculated dose. Of note, the patient's SCr has risen to 2.32 today from 2.18 yesterday and 1.96 the day before that. The patient's CrCl of 28.4 ml/min was calculated using an adjusted body weight. Pharmacy Service will continue to monitor and adjust dosing as required. Follow-Up Labs Follow-Up Labs: Trough: Vancomycin (random) Date/Time Labs Ordered Labs to be done on [date and time ordered]: 07/18/23 06:00
[2023-07-17 10:54] LABS: Differential Comment SCANNED
--- NOTE | 2023-07-17 11:10 | PCM.PN.REN ---
Documented by User: ROSALIND Lopez 07/17/23 11:17 Subjective Subjective Following for LUIS ALBERTO and on CKD Patient resting in bed. States had episode of loose bowel movement this morning. Denies any nausea or vomiting. States is tolerating diet but feels full quickly. Objective Data Objective Data Vital Signs: Vital Signs Temp Pulse Resp BP Pulse Ox O2 Del Method O2 Flow Rate 99.0 F 106 H 22 H 128/52 H 94 CPAP 1 07/17/23 09:11 07/17/23 09:11 07/17/23 09:15 07/17/23 09:11 07/17/23 09:16 07/17/23 09:15 07/17/23 09:15 FiO2 4 07/10/23 08:00 Oxygen Flow Rate (L/min) 1 Oxygen Delivery Method CPAP Weight: 143.2 kg Body Mass Index (BMI) 50.9 Intake & Output: Intake and Output for Last 24 Hours 07/15/23 07/16/23 07/17/23 23:59 23:59 23:59 Intake Total 700 / 800 700 / 700 240 / 240 Output Total 950 / 1300 1050 / 1050 350 / 350 Balance -250 / -500 -350 / -350 -110 / -110 Lab / Micro Data 07/17/23 07:45 07/17/23 07:45 Labs: Laboratory Results - last 24 hr 07/17/23 07:45: WBC 14.8 H, RBC 3.00 L, Hgb 8.5 L, Hct 28.0 L, MCV 93.3, MCH 28.3, MCHC 30.4 L, RDW Std Deviation 48.7 H, RDW Coeff of Fariba 14.5, Plt Count 225, MPV 11.0, Immature Gran % (Auto) 2.200 H, Neut % (Auto) 90.6 H, Lymph % (Auto) 3.3 L, Titus % (Auto) 3.1, Eos % (Auto) 0.5, Baso % (Auto) 0.3, Absolute Neuts (auto) 13.4 H, Absolute Lymphs (auto) 0.49 L, Nucleated RBC % 0, Differential Comment SCANNED, Sodium 138, Potassium 3.6, Chloride 114 H, Carbon Dioxide 13.0 L, Anion Gap 11, BUN 39 H, Creatinine 2.32 H, Estim Creat Clear Calc 18.11, Est GFR (MDRD) Af Amer 26 L, Est GFR (MDRD) Non-Af 22 L, BUN/Creatinine Ratio 16.8, Glucose 96, Calcium 8.0 L 07/17/23 09:42: Vancomycin Trough 25.3 H Micro: Microbiology 07/13/23 15:00 Urine, Midstream Urine Culture - Final Melissa albicans 07/09/23 14:05 Blood Culture (Wb) - Port Blood Culture - Final No growth in 5 days. 07/09/23 13:20 Blood Culture (Wb) - Port Blood Culture - Final No growth in 5 days. 07/13/23 16:29 Stool C. difficile DNA Amplification - Final Physical Exam Narrative Alert and oriented x3, NAD. Normal S1, S2. No rubs, murmurs, or gallops. Lungs sounds clear anteriorly. No wheezing, rhonchi, or rales. abdomen soft, non tender No pitting edema of the lower extremities bilaterally Govea catheter with clear yellow urine in bag Assessment & Plan Assessment/Plan (1) Acute kidney injury: (2) Chronic kidney disease, stage 3b: (3) Acute metabolic acidosis: PLAN: Plan Impression/Plan: 78-year-old woman with past history of chronic kidney disease stage G3b, type 2 diabetes mellitus, hypertension, CAD, HFpEF, aortic stenosis status post replacement, atrial fibrillation, pulmonary hypertension on treprostinil, GERD, and iron deficiency anemia. The patient was admitted to the hospital on 07/09/2023 with gallstone pancreatitis. She has also been treated for acute hypoxic respiratory failure attributed to HFpEF with diuresis. Nephrology is following for LUIS ALBERTO on CKD. Acute kidney injury on chronic kidney disease stage G3b. Baseline serum creatinine has been around 1.3 to 1.5 mg/dL prior to this admission. The patient likely has underlying CKD due to diabetic kidney disease. Nonoliguric acute kidney injury is likely due to prerenal azotemia. Also to note patient did have CT with IV contrast on 07/09. Serum creatinine 1.2mg/dL on admission, SCr leveled off to around 1.9 to 2 mg/dL for few days however today SCr is up to 2.32 mg/dL. Intravascular volume may be on lower side as patient was admitted with pancreatitis, had been n.p.o., then on liquid diet but not taking much in by mouth, she is also having loose bowel movements; likely output>> input. Will give liter of IV fluids today. Overall renal function remains stable, no acute indication for [employer]ATH[employer] CASE FINISHER, potassium and acid/base acceptable and patient is non-oliguric. Blood pressures have been acceptable, not on any antihypertensives. There was no evidence of urinary tract obstruction on CT abdomen/pelvis on 07/09/2023. Urinalysis and fractional secretion of sodium less than 1% are consistent with prerenal LUIS ALBERTO. Acute metabolic acidosis. suspect secondary to LUIS ALBERTO on CKD and loose bowel movements. Stool for cdiff negative. Will start oral sodium bicarbonate. acute pancreatitis; on Vanco and Zosyn per ID. Recommend close monitoring Vanco levels given LUIS ALBERTO, Vanco trough level 25.3 today. HIDA scan did not show acute cholecystitis. Discussed nephrology plan with Dr. Justin Documented by User: Dr. Soraida Roldan MD 07/17/23 14:12 Objective Data Lab / Micro Data 07/17/23 07:45 07/17/23 07:45 Assessment & Plan Assessment/Plan (1) Acute kidney injury: (2) Chronic kidney disease, stage 3b: (3) Acute metabolic acidosis: PLAN: Plan Impression/Plan: 78-year-old woman with past history of chronic kidney disease stage G3b, type 2 diabetes mellitus, hypertension, CAD, HFpEF, aortic stenosis status post replacement, atrial fibrillation, pulmonary hypertension on treprostinil, GERD, and iron deficiency anemia. The patient was admitted to the hospital on 07/09/2023 with gallstone pancreatitis. She has also been treated for acute hypoxic respiratory failure attributed to HFpEF with diuresis. Nephrology is following for LUIS ALBERTO on CKD. Acute kidney injury on chronic kidney disease stage G3b. Baseline serum creatinine has been around 1.3 to 1.5 mg/dL prior to this admission. The patient likely has underlying CKD due to diabetic kidney disease. Nonoliguric acute kidney injury is likely due to prerenal azotemia. Also to note patient did have CT with IV contrast on 07/09. Serum creatinine 1.2mg/dL on admission, SCr leveled off to around 1.9 to 2 mg/dL for few days however today SCr is up to 2.32 mg/dL. Intravascular volume may be on lower side as patient was admitted with pancreatitis, had been n.p.o., then on liquid diet but not taking much in by mouth, she is also having loose bowel movements; likely output>> input. Will give liter of IV fluids today. Overall renal function remains stable, no acute indication for LEATH[employer] CASE FINISHER, potassium and acid/base acceptable and patient is non-oliguric. Blood pressures have been acceptable, not on any antihypertensives. There was no evidence of urinary tract obstruction on CT abdomen/pelvis on 07/09/2023. Urinalysis and fractional secretion of sodium less than 1% are consistent with prerenal LUSI ALBERTO. Acute metabolic acidosis. suspect secondary to LUIS ALBERTO on CKD and loose bowel movements. Stool for cdiff negative. Will start oral sodium bicarbonate. acute pancreatitis; on Vanco and Zosyn per ID. Recommend close monitoring Vanco levels given LUIS ALBERTO, Vanco trough level 25.3 today. HIDA scan did not show acute cholecystitis. Discussed nephrology plan with Dr. Justin Nephrology attending addendum: We will give IV fluid carefully. The patient does have a history of HFpEF/diastolic dysfunction. Will recheck renal function, volume status and electrolytes tomorrow. If renal function fails to improve with IV fluid, I will recheck urine studies.
[2023-07-17] MEDS: 0.9% Normal Saline (1000mL) 1,000 ML 75 ML IV (11:41)
--- NOTE | 2023-07-17 13:24 | PCM.PN.ID ---
Physical Exam Narrative Still some upper abd pain, no fever, back is feeling better Const alert and no apparent distress Resp normal air movement and clear to auscultation bilaterally Cardio regular rate and regular rhythm GI soft to palpation and non-distended GI Narrative: mild soreness Skin no rashes or lesions noted ID ID: Route of nutrition/ use of supplements: [] Nutritional Intake: [] IV Site: [] Govea Catheter: [] Assessment & Plan Assessment/Plan (1) Acute pancreatitis: QUALIFIERS: Pancreatitis type: drug induced Acute pancreatitis complication: no infection or necrosis Qualified Code(s): K85.30 - Drug induced acute pancreatitis without necrosis or infection (2) Lumbar discitis: PLAN: Had been on vanc/ceftriaxone empirically for lumbar discitis. Stop date 07/21/23, back pain overall much improved. Pancreatitis is a rare reported reaction with ceftriaxone, so it could be a possible cause. On vanc/zosyn here, will continue for now which would also cover for any possible cholecystitis. Plan is for discharge to [facility] tomorrow, at this point in her course, ok to stop abx at discharge from here and remove picc. Will follow, ID followup as outpatient as needed. D/w clinical case manager.
--- NOTE | 2023-07-17 13:30 | CASEMGMT ---
Per Dr Peacock patient will not need to be discharged on IV antibiotics. Narcisa will reach out to [facility] to see if they can take patient now since she will not be on IV's. Await response. Ermelinda Gutierrez [employer] MACHINE OPERATOR GIANA
--- NOTE | 2023-07-17 17:21 | PN.HOSP_ITS ---
Reason for Visit Reason for Visit: Diagnoses Acute metabolic acidosis (07/09/23) Essential (primary) hypertension (07/09/23) Longstanding persistent atrial fibrillation (07/09/23) Chronic diastolic (congestive) heart failure (07/09/23) Pleural effusion, not elsewhere classified (07/09/23) Acute respiratory failure with hypoxia (07/09/23) Biliary acute pancreatitis without necrosis or infection (07/09/23) Drug induced acute pancreatitis without necrosis or infection (07/09/23) Discitis, unspecified, lumbar region (07/09/23) Acute kidney failure, unspecified (07/09/23) Chronic kidney disease, stage 3b (07/09/23) Presence of prosthetic heart valve (07/09/23) Subjective Subjective Patient slowly improving, breathing fair, still feels somewhat tired and weak, remains on full liquid diet Objective Data Objective Data Vital Signs: Vital Signs Temp Pulse Resp BP Pulse Ox O2 Del Method O2 Flow Rate 98.7 F 84 20 H 127/47 H 94 CPAP 2 07/17/23 13:57 07/17/23 13:57 07/17/23 13:57 07/17/23 13:57 07/17/23 13:57 07/17/23 14:07 07/17/23 14:07 FiO2 4 07/10/23 08:00 Oxygen Flow Rate (L/min) 2 Oxygen Delivery Method CPAP Weight: 143.2 kg Body Mass Index (BMI) 50.9 Intake & Output: Intake and Output for Last 24 Hours 07/15/23 07/16/23 07/17/23 23:59 23:59 23:59 Intake Total 700 / 800 700 / 700 290 / 290 Output Total 950 / 1300 1050 / 1050 750 / 750 Balance -250 / -500 -350 / -350 -460 / -460 Lab / Micro Data 07/17/23 07:45 07/17/23 07:45 Labs: Laboratory Results - last 24 hr 07/17/23 07:45: WBC 14.8 H, RBC 3.00 L, Hgb 8.5 L, Hct 28.0 L, MCV 93.3, MCH 28.3, MCHC 30.4 L, RDW Std Deviation 48.7 H, RDW Coeff of Fariba 14.5, Plt Count 225, MPV 11.0, Immature Gran % (Auto) 2.200 H, Neut % (Auto) 90.6 H, Lymph % (A uto) 3.3 L, Woodward % (Auto) 3.1, Eos % (Auto) 0.5, Baso % (Auto) 0.3, Absolute Neuts (auto) 13.4 H, Absolute Lymphs (auto) 0.49 L, Nucleated RBC % 0, Differential Comment SCANNED, Sodium 138, Potassium 3.6, Chloride 114 H, Carbon Dioxide 13.0 L, Anion Gap 11, BUN 39 H, Creatinine 2.32 H, Estim Creat Clear Calc 18.11, Est GFR (MDRD) Af Amer 26 L, Est GFR (MDRD) Non-Af 22 L, BUN/Creatinine Ratio 16.8, Glucose 96, Calcium 8.0 L 07/17/23 09:42: Vancomycin Trough 25.3 H Micro: Microbiology 07/13/23 15:00 Urine, Midstream Urine Culture - Final Melissa albicans 07/09/23 14:05 Blood Culture (Wb) - Port Blood Culture - Final No growth in 5 days. 07/09/23 13:20 Blood Culture (Wb) - Port Blood Culture - Final No growth in 5 days. 07/13/23 16:29 Stool C. difficile DNA Amplification - Final Physical Exam Narrative General: Alert, oriented, no acute distress HEENT: Atraumatic, normocephalic Eyes: Anicteric, normal conjunctiva, extraocular movements grossly intact Neck: Supple Respiratory: Somewhat diminished at the bases, likely secondary to body habitus, no wheezes Cardiovascular: Regular rate GI: Nontender, no rebound, guarding, rigidity Extremities: trace LE pitting edema Musculoskeletal: Moving all extremities Neuro: No overt focal neurological deficits Skin: Some chronic lower extremity changes Psych: Cooperative Assessment & Plan Assessment/Plan (1) Acute gallstone pancreatitis: (2) Acute hypoxemic respiratory failure: (3) Chronic diastolic (congestive) heart failure: (4) Essential (primary) hypertension: (5) H/O aortic valve replacement: (6) Longstanding persistent atrial fibrillation: PLAN: Plan 78-year-old female is being admitted in ICU after sudden onset of predominantly severe epigastric and RUQ abdominal pain, low blood pressure 89/43, nausea with dry heaves, sent to ED from infusion center where she was getting vancomycin and Rocephin for history of discitis and high leverage suggestive of acute pancreatitis. No fever. She had 2 BM in the morning on the day of admission #Acute pancreatitis -Lipase >5000 w/ imaging consistent with pancreatitis. CT abdomen individually reviewed and shows inflammation around gallbladder and pancreas, multiple gallstones with GB wall thickening and pericholecystic fluid suggesting cholecystitis. But gallbladder not distended. Patient was evaluated by surgeon and there is anticipation of laparoscopic surgery after pancreatitis resolved. Hematocrit on admission was 29% currently 34.3. BUN 14. Heart rate and blood pressure in acceptable limit. Hematocrit 29.8 and BUN 14 within acceptable limit. Continue IV fluid. Pain medication Dilaudid. -Patient already on vancomycin and Rocephin for history of discitis, and Rocephin was changed to Zosyn. -N.p.o. IV fluid. 07/11: Mild leukocytosis worse than yesterday. Patient on IV antibiotics. 07/12 leukocytosis worsening. Patient on IV antibiotics. No fever. Blood culture negative for 48 hours. 07/13: Patient does not have fever but leukocytosis worsening. Gradually went worse from normal to 17.2 thousand. She is covered with antibiotics vancomycin and Zosyn unclear whether it is from medication or other inflammatory condition. CT abdomen without contrast ordered. Discussed with the surgeon. 07/14: CT abdomen reviewed. It was similar finding as previous CT scan. Multiple gallstones. Increased ascites in the abdomen and pelvis. Degenerative changes in the spine with endplate irregularity at L2-3 on right and the diagnosis of discitis/osteomyelitis. Patient is on IV antibiotics. Stool for C. difficile negative. -07/15: Patient for HIDA today -07/16: HIDA negative, diet advanced to fulls, no plans for cholecystectomy -07/17: Fulls until pain resolved but can be discharged on this diet #Recent discitis -ID was consulted and note reviewed. Patient to stop date of vancomycin and ceftriaxone 07/21/2023. Back pain overall much improved. Pancreatitis is a rare reported reaction with ceftriaxone so could be a possible cause. Currently on vancomycin and Zosyn. 07/14: Vanco trough level was normal limit. Pharmacy is following the Vanco limit. Blood cultures x2 negative for 48 hours. -07/15: Infectious disease following, will have stop date of 07/21 for antibiotics -07/17: Patient can stop IV antibiotics on DC #Acute hypoxia/Hx chronic HFpEF per documentation/Hx AV bioprosthetic replacement/AARTI with CPAP -Patient 75% on room air in ED improved to 92% on 6 L, Currently on 4 L of oxygen. -Most recent echo February 2023 with PASP of 70, bioprosthetic aortic valve and EF of 60%, no comment on diastolic function but has documentation in chart of heart failure with preserved ejection fraction -Left pleural effusion noted on CT scan, overall fairly minimal -Patient was put on Ventimask and then BiPAP and ticket sales supervisor was consulted. During the day patient improved and is stable for transfer out of ICU. 07/11: Patient visibly looks short of breath. Chest x-ray portable ordered. Lasix 40 mg IV ordered. 07/13: Repeat chest x-ray PA and lateral ordered. No maggie crepitations on auscultation. -07/15: Is improving but still does not feel back to baseline, continue home CPAP #LUIS ALBERTO on CKD stage IIIb: 07/11: Patient creatinine went up1.68. Her baseline is around 1.2. The patient CT abdomen pelvis with IV contrast on 07/09/2023 so possible contrast related nephrotoxicity but it was 2 days ago. Patient is on IV fluid normal saline but seems fluid overload and lung condition therefore chest x-ray and furosemide ordered. Monitor kidney function further worsening will need nephrology consult. Medications reviewed and does not seem any in nephrotoxic medications. ID prefer to continue vancomycin and Zosyn dose needs to be adjusted. 07/12: Creatinine went up to 2.0. BUN 35. Anion gap 8, bicarb 18. Sodium and chloride on higher side. Discussed with the blueprint assembler. Patient treated for 7 L of positive fluid balance and was short of breath and lung crepitation therefore Lasix 40 mg IV 1 dose was given yesterday. We agreed on just monitoring without giving IV fluids or diuretics. 07/13: Creatinine seems better. Discussed with the blueprint assembler. Total positive 7.7 L positive fluid balance. Urine output about 450 mL. Urine electrolytes ordered. 07/14: BUNs/creatinine 36/1.83. Discussed with the blueprint assembler. Encouraged IV fluid. Kidney function gradually improving. Avoid nephrotoxic medications. Anion gap normal, normal anion gap metabolic acidosis. Mild hypokalemia potassium getting replaced. -07/15: Slightly worse today, encourage oral intake, nephrology following -07/16: Worsening in slightly, discussed with nephrology, it is felt given patient's poor p.o. intake and receiving dye earlier in her hospital stay that this combination may have led to her worsening kidney function, patient advance to full's, encourage p.o. and will recheck tomorrow, no present indication for CRRT. -07/17: Slightly worse today, patient received some gentle IV fluids, assess for improvement tomorrow #GERD -Continue PPI #afib -Patient reports chronic A-fib but has had multiple GI bleeds most recently in February so has been taken off of all anticoagulation -She is undergoing evaluation for Watchman which is the ultimate goal patient is still in A-fib. -07/15: If further tachycardia may need rate control -07/16: Patient seems to primarily be tachycardic when she gets up and moves around, suspect this is physiologic and largely due to deconditioning and possibly with a component of being intravascularly down, patient's diet advanced today #pulmonary HTN: She was started in October 2022 on treprostinil for pulmonary hypertension by Dr. Nelson and dose has gradually been increased. Patient on treprostinil 4.5 mg tablet 3 times a day an additional 0.125 mg on every Saturday until final goal is achieved. Currently it is on hold. I called Dr. Nelson phone and left a voicemail to call back. 07/[address] Nelson yesterday and today but did not call back. Left a voice message 07/13: Discussed with our photographic printer, Dr. Cartagena. Cannot discontinue treprostinil as patient can have rebound pulmonary hypertension with risk of cardiac arrest. 07/14: Patient has diarrhea of 4-5 bowel movements since the beginning of the starting treprostinil. -07/15: will need to follow-up with her photographic printer #Chronic anemia -Does not appear to be acutely bleeding 07/13: Hemoglobin slight drop to 8.9 from baseline around 10.2. Monitor CBC. Patient had recent iron work-up on April 2023 which shows iron 48, TIBC low normal at 268 iron saturation 18% and ferritin 197 suggestive of inflammatory anemia/anemia of chronic disease. 07/14: H&H 8.8/29%. Platelet count 287,000. #Morbid obesity -BMI 49.4 kg/m? -Complicates treatment, prognosis, outcomes -Recommend weight loss and lifestyle changes #DVT ppx: Lovenox subcu Charges/Coding Visit Charges Inpatient E&M: 07983 Subs Hosp L2
[2023-07-17] MEDS: Sodium Bicarbonate 650 MG Tablet PO (22:03)
[2023-07-17] MEDS: Pramipexole Di-HCl 0.125 MG Tablet PO (22:04)
--- NOTE | 2023-07-18 01:53 | NURSING ---
Bladder scanned for 150mL
[2023-07-18 03:24] VITALS: BMI 49.8
[2023-07-18 03:41] VITALS: BP 150/45; PULSE 81; RESP 16; TEMP 36.8; O2SAT 96
[2023-07-18] MEDS: 0.9% Normal Saline (1000mL) 1,000 ML 75 ML IV (03:43)
[2023-07-18] MEDS: SILDENAFIL CITRATE 20 MG TABLET PO ×3 (05:19→21:01)
[2023-07-18] MEDS: Piperacil/Tazobactam 3.375 GM in 0.9% Normal Saline (50mL MB+) 50 ML IV ×2 (05:21→17:51)
[2023-07-18 06:15] LABS: Absolute Lymphocyte Count 0.65 X10^3/uL (0.83-4.51); Absolute Neutrophil Count 12.5 X10^3/uL (2.0-7.7); Basophil# 0.04 X10^3/uL; Basophil% 0.3 % (0-1); Eosinophil# 0.07 X10^3/uL; Eosinophils% 0.5 % (0-5); Hematocrit 26.2 % (37-47); Hemoglobin 7.9 g/dL (12.0-15.0); Lymphocyte # 0.65 X10^3/ul (0.83-4.51); Lymphocyte % 4.6 % (19-41); Mean Corp Hgb Conc 30.2 g/dL (32-36); Mean Corpuscular Hgb 28.1 pg (27.0-32.0); Mean Corpuscular Volume 93.2 fL (81-99); Mean Platelet Vol. 10.8 fl (6.2-12.0); Monocyte# 0.44 X10^3/uL; Monocyte% 3.1 % (0-10); NRBC Flagged by Analyzer 0 % (0-5); Neutrophil # 12.53 X10^3/uL (2.7-7.7); Neutrophil % 89.2 % (47-70); Platelet Count 177 K/mm3 (150-450); RBC Distribution Width CV 14.5 % (11.6-14.6); Red Blood Count 2.81 M/mm3 (4.2-5.4); White Blood Count 14.1 K/mm3 (4.4-11.0)
--- NOTE | 2023-07-18 06:20 | NURSING ---
Bladder scanned at 215mL
[2023-07-18 06:49] LABS: Anion Gap 6 (5-15); BUN 42 mg/dL (7-18); BUN/Creat Ratio 17.6 RATIO (10-20); Calcium,Total 8.3 mg/dL (8.5-10.1); Chloride 115 mmol/L (98-107); Creatinine, Serum 2.38 mg/dL (0.55-1.02); EST Glomerular Filtration Rate 21 mL/min (>60); Est Glom Filt Rate - Afr Amer 25 mL/min (>60); Estimated Creatinine Clearance 17.65 ml/min; Glucose 113 mg/dL (74-106); Potassium 3.3 mmol/L (3.5-5.1); Sodium Level 139 mmol/L (136-145)
[2023-07-18 06:51] LABS: Vancomycin, Random Level 21.6 ug/mL (0.0-15.0)
--- NOTE | 2023-07-18 07:22 | PCM.RX.CS ---
Consult Antibiotic Management Pharmacy has been consulted to manage selected antiobiotic: Vancomycin Type of Intervention Type of Consult: Follow-up Suspected Infection Suspected Infection: Other Labs Labs: Sodium 139 mmol/L (136-145) 07/18/23 06:08 Potassium 3.3 mmol/L (3.5-5.1) L 07/18/23 06:08 Chloride 115 mmol/L (98-107) H 07/18/23 06:08 Carbon Dioxide 18.0 mmol/L (21.0-32.0) L 07/18/23 06:08 Anion Gap 6 (5-15) 07/18/23 06:08 BUN 42 mg/dL (7-18) H 07/18/23 06:08 Creatinine 2.38 mg/dL (0.55-1.02) H 07/18/23 06:08 Est GFR (MDRD) Af Amer 25 mL/min (>60) L 07/18/23 06:08 Est GFR (MDRD) Non-Af 21 mL/min (>60) L 07/18/23 06:08 BUN/Creatinine Ratio 17.6 RATIO (10-20) 07/18/23 06:08 Glucose 113 mg/dL (74-106) H 07/18/23 06:08 Vancomycin Trough 25.3 ug/mL (5.0-15.0) H 07/17/23 09:42 Random Vancomycin 21.6 ug/mL (0.0-15.0) H 07/18/23 06:08 Microbiology Microbiology: Microbiology 07/13/23 15:00 Urine, Midstream Urine Culture - Final Melissa albicans 07/09/23 14:05 Blood Culture (Wb) - Port Blood Culture - Final No growth in 5 days. 07/09/23 13:20 Blood Culture (Wb) - Port Blood Culture - Final No growth in 5 days. 07/13/23 16:29 Stool C. difficile DNA Amplification - Final Goal Trough Goal Trough: 15-20 mcg/mL Pharmacy Plan for Drug Dosing Pharmacy Plan for Drug Dosing: VANCOMYCIN LEVEL RECEIVED Current Vancomycin Dose: ON HOLD- last dose of vancomycin 1000mg IV 07/16 @0908 Number of Doses Received: n/a Vancomycin Level: 21.6 Hours Since Last Dose: 45hr Renal Function: 2.38 Renal Function Trend: worsening Lab/Micro: no new results- was on this prior to admission Vancomycin Plan/Comments: Patient had a random vancomycin trough drawn which resulted in a value of 21.6 (Goal 15-20). Since trough remains high paired with impaired renal function, will once again HOLD vancomycin dose again today. Will order another random trough for tomorrow morning and assess dosing at that time. Pending Level: *RANDOM* level 07/19/23 with AM labs Pharmacy Service will continue to monitor and adjust dosing as required.
[2023-07-18 08:18] VITALS: BP 157/45; PULSE 98; RESP 18; TEMP 36.4; O2SAT 96
[2023-07-18] MEDS: Menthol/Lanolin/Calamine/Znox 113 GM Tube 1 APPLIC TOPICAL ×2 (08:41→21:03)
[2023-07-18] MEDS: Enoxaparin 30 MG/0.3 ML Syringe SC (08:42)
[2023-07-18] MEDS: Potassium Chloride Oral Tablet 20 MEQ PO (08:42)
[2023-07-18] MEDS: Pantoprazole Sodium 40 MG Tablet PO (08:43)
[2023-07-18] MEDS: Sodium Bicarbonate 650 MG Tablet PO ×2 (08:43→21:00)
[2023-07-18 08:44] VITALS: O2SAT 96
--- NOTE | 2023-07-18 09:03 | CASEMGMT ---
Discharge Planning Requested updates sent to [facility] via [employer]. Narcisa Delgado, Discharge Planning Asst.
[2023-07-18 09:09] VITALS: O2SAT 93; O2SAT 94
--- NOTE | 2023-07-18 09:50 | PN.HOSP_ITS ---
Reason for Visit Reason for Visit: Diagnoses Acute metabolic acidosis (07/09/23) Essential (primary) hypertension (07/09/23) Longstanding persistent atrial fibrillation (07/09/23) Chronic diastolic (congestive) heart failure (07/09/23) Pleural effusion, not elsewhere classified (07/09/23) Acute respiratory failure with hypoxia (07/09/23) Biliary acute pancreatitis without necrosis or infection (07/09/23) Drug induced acute pancreatitis without necrosis or infection (07/09/23) Discitis, unspecified, lumbar region (07/09/23) Acute kidney failure, unspecified (07/09/23) Chronic kidney disease, stage 3b (07/09/23) Presence of prosthetic heart valve (07/09/23) Subjective Subjective Patient did not sleep well last night so is tired today, still suboptimal oral intake, reports still short of breath on exertion but feels like it is probably been about consistent not necessarily worsening Objective Data Objective Data Vital Signs: Vital Signs Temp Pulse Resp BP Pulse Ox O2 Del Method O2 Flow Rate 97.6 F L 98 18 157/45 H 96 CPAP 2 07/18/23 08:18 07/18/23 08:18 07/18/23 08:18 07/18/23 08:18 07/18/23 08:44 07/18/23 08:44 07/18/23 08:44 FiO2 4 07/10/23 08:00 Oxygen Flow Rate (L/min) 2 Oxygen Delivery Method CPAP Weight: 140 kg Body Mass Index (BMI) 49.8 Intake & Output: Intake and Output for Last 24 Hours 07/16/23 07/17/23 07/18/23 23:59 23:59 23:59 Intake Total 700 / 700 340 / 340 1000 / 1000 Output Total 1050 / 1050 750 / 750 0 / 0 Balance -350 / -350 -410 / -410 1000 / 1000 Lab / Micro Data 07/18/23 06:08 07/18/23 06:08 Labs: Laboratory Results - last 24 hr 07/17/23 07:45: Differential Comment SCANNED, Sodium 138, Potassium 3.6, Chloride 114 H, Carbon Dioxide 13.0 L, Anion Gap 11, BUN 39 H, Creatinine 2.32 H , Estim Creat Clear Calc 18.11, Est GFR (MDRD) Af Amer 26 L, Est GFR (MDRD) Non- Af 22 L, BUN/Creatinine Ratio 16.8, Glucose 96, Calcium 8.0 L 07/17/23 09:42: Vancomycin Trough 25.3 H 07/18/23 06:08: WBC 14.1 H, RBC 2.81 L, Hgb 7.9 L, Hct 26.2 L, MCV 93.2, MCH 28.1, MCHC 30.2 L, RDW Std Deviation 49.0 H, RDW Coeff of Fariba 14.5, Plt Count 177, MPV 10.8, Immature Gran % (Auto) 2.300 H, Neut % (Auto) 89.2 H, Lymph % (Auto) 4.6 L, [place] % (Auto) 3.1, Eos % (Auto) 0.5, Baso % (Auto) 0.3, Absolute Neuts (auto) 12.5 H, Absolute Lymphs (auto) 0.65 L, Nucleated RBC % 0, Sodium 139, Potassium 3.3 L, Chloride 115 H, Carbon Dioxide 18.0 L, Anion Gap 6, BUN 42 H, Creatinine 2.38 H, Estim Creat Clear Calc 17.65, Est GFR (MDRD) Af Amer 25 L, Est GFR (MDRD) Non-Af 21 L, BUN/Creatinine Ratio 17.6, Glucose 113 H, Calcium 8.3 L, Random Vancomycin 21.6 H Micro: Microbiology 07/13/23 15:00 Urine, Midstream Urine Culture - Final Melissa albicans 07/09/23 14:05 Blood Culture (Wb) - Port Blood Culture - Final No growth in 5 days. 07/09/23 13:20 Blood Culture (Wb) - Port Blood Culture - Final No growth in 5 days. 07/13/23 16:29 Stool C. difficile DNA Amplification - Final Physical Exam Narrative General: Alert, oriented, no acute distress HEENT: Atraumatic, normocephalic Eyes: Anicteric, normal conjunctiva, extraocular movements grossly intact Neck: Supple Respiratory: Somewhat diminished at the bases, likely secondary to body habitus, no wheezes Cardiovascular: Regular rate GI: Nontender, no rebound, guarding, rigidity Extremities: trace LE pitting edema Musculoskeletal: Moving all extremities Neuro: No overt focal neurological deficits Skin: Some chronic lower extremity changes Psych: Cooperative Assessment & Plan Assessment/Plan (1) Acute gallstone pancreatitis: (2) Acute hypoxemic respiratory failure: (3) Chronic diastolic (congestive) heart failure: (4) Essential (primary) hypertension: (5) H/O aortic valve replacement: (6) Longstanding persistent atrial fibrillation: PLAN: Plan 78-year-old female is being admitted in ICU after sudden onset of predominantly severe epigastric and RUQ abdominal pain, low blood pressure 89/43, nausea with dry heaves, sent to ED from infusion center where she was getting vancomycin and Rocephin for history of discitis and high leverage suggestive of acute pancreatitis. No fever. She had 2 BM in the morning on the day of admission #Acute pancreatitis -Lipase >5000 w/ imaging consistent with pancreatitis. CT abdomen individually reviewed and shows inflammation around gallbladder and pancreas, multiple gallstones with GB wall thickening and pericholecystic fluid suggesting cholecystitis. But gallbladder not distended. Patient was evaluated by surgeon and there is anticipation of laparoscopic surgery after pancreatitis resolved. Hematocrit on admission was 29% currently 34.3. BUN 14. Heart rate and blood pressure in acceptable limit. Hematocrit 29.8 and BUN 14 within acceptable limit. Continue IV fluid. Pain medication Dilaudid. -Patient already on vancomycin and Rocephin for history of discitis, and Rocephin was changed to Zosyn. -N.p.o. IV fluid. 07/11: Mild leukocytosis worse than yesterday. Patient on IV antibiotics. 07/12 leukocytosis worsening. Patient on IV antibiotics. No fever. Blood culture negative for 48 hours. 07/13: Patient does not have fever but leukocytosis worsening. Gradually went worse from normal to 17.2 thousand. She is covered with antibiotics vancomycin and Zosyn unclear whether it is from medication or other inflammatory condition. CT abdomen without contrast ordered. Discussed with the surgeon. 07/14: CT abdomen reviewed. It was similar finding as previous CT scan. Multiple gallstones. Increased ascites in the abdomen and pelvis. Degenerative changes in the spine with endplate irregularity at L2-3 on right and the diagnosis of discitis/osteomyelitis. Patient is on IV antibiotics. Stool for C . difficile negative. -07/15: Patient for HIDA today -07/16: HIDA negative, diet advanced to fulls, no plans for cholecystectomy -07/17: Fulls until pain resolved but can be discharged on this diet -07/18: Continue supportive care #Recent discitis -ID was consulted and note reviewed. Patient to stop date of vancomycin and ceftriaxone 07/21/2023. Back pain overall much improved. Pancreatitis is a rare reported reaction with ceftriaxone so could be a possible cause. Currently on vancomycin and Zosyn. 07/14: Vanco trough level was normal limit. Pharmacy is following the Vanco limit. Blood cultures x2 negative for 48 hours. -07/15: Infectious disease following, will have stop date of 07/21 for antibiotics -07/17: Patient can stop IV antibiotics on DC #Acute hypoxia/Hx chronic HFpEF per documentation/Hx AV bioprosthetic replacement/AARTI with CPAP -Patient 75% on room air in ED improved to 92% on 6 L, Currently on 4 L of oxygen. -Most recent echo February 2023 with PASP of 70, bioprosthetic aortic valve and EF of 60%, no comment on diastolic function but has documentation in chart of heart failure with preserved ejection fraction -Left pleural effusion noted on CT scan, overall fairly minimal -Patient was put on Ventimask and then BiPAP and restaurant crew member was consulted. During the day patient improved and is stable for transfer out of ICU. 07/11: Patient visibly looks short of breath. Chest x-ray portable ordered. Lasix 40 mg IV ordered. 07/13: Repeat chest x-ray PA and lateral ordered. No maggie crepitations on auscultation. -07/15: Is improving but still does not feel back to baseline, continue home CPAP -07/18: Stable #LUIS ALBERTO on CKD stage IIIb: 07/11: Patient creatinine went up1.68. Her baseline is around 1.2. The patient CT abdomen pelvis with IV contrast on 07/09/2023 so possible contrast related nephrotoxicity but it was 2 days ago. Patient is on IV fluid normal saline but seems fluid overload and lung condition therefore chest x-ray and furosemide ordered. Monitor kidney function further worsening will need nephrology consult. Medications reviewed and does not seem any in nephrotoxic medications. ID prefer to continue vancomycin and Zosyn dose needs to be adjusted. 07/12: Creatinine went up to 2.0. BUN 35. Anion gap 8, bicarb 18. Sodium and chloride on higher side. Discussed with the houseman. Patient treated for 7 L of positive fluid balance and was short of breath and lung crepitation th erefore Lasix 40 mg IV 1 dose was given yesterday. We agreed on just monitoring without giving IV fluids or diuretics. 07/13: Creatinine seems better. Discussed with the houseman. Total positiv e 7.7 L positive fluid balance. Urine output about 450 mL. Urine electrolytes ordered. 07/14: BUNs/creatinine 36/1.83. Discussed with the houseman. Encouraged IV fluid. Kidney function gradually improving. Avoid nephrotoxic medications. Anion gap normal, normal anion gap metabolic acidosis. Mild hypokalemia potassium getting replaced. -07/15: Slightly worse today, encourage oral intake, nephrology following -07/16: Worsening in slightly, discussed with nephrology, it is felt given marybel vega's poor p.o. intake and receiving dye earlier in her hospital stay that this combination may have led to her worsening kidney function, patient advance to full's, encourage p.o. and will recheck tomorrow, no present indication for CRRT. -07/17: Slightly worse today, patient received some gentle IV fluids, assess for improvement tomorrow -07/18: Slightly worsened again today, had Govea taken out yesterday and has not urinated but still does not have significant amount on bladder scan, if still not urinating well straight cath. Encouraged to increase p.o. intake by nephrology, discussed with nephrology #GERD -Continue PPI #afib -Patient reports chronic A-fib but has had multiple GI bleeds most recently in February so has been taken off of all anticoagulation -She is undergoing evaluation for Watchman which is the ultimate goal patient is still in A-fib. -07/15: If further tachycardia may need rate control -07/16: Patient seems to primarily be tachycardic when she gets up and moves around, suspect this is physiologic and largely due to deconditioning and possibly with a component of being intravascularly down, patient's diet advanced today #pulmonary HTN: She was started in October 2022 on treprostinil for pulmonary hypertension by Dr. Nelson and dose has gradually been increased. Patient on treprostinil 4.5 mg tablet 3 times a day an additional 0.125 mg on every Saturday until final goal is achieved. Currently it is on hold. I called Dr. Nelson phone and left a voicemail to call back. 07/[address] Nelson yesterday and today but did not call back. Left a v oice message 07/13: Discussed with our pedal assembler, Dr. Cartagena. Cannot discontinue treprostinil as patient can have rebound pulmonary hypertension with risk of cardiac arrest. 07/14: Patient has diarrhea of 4-5 bowel movements since the beginning of the starting treprostinil. -07/15: will need to follow-up with her pedal assembler #Chronic anemia -Does not appear to be acutely bleeding 07/13: Hemoglobin slight drop to 8.9 from baseline around 10.2. Monitor CBC. Patient had recent iron work-up on April 2023 which shows iron 48, TIBC low normal at 268 iron saturation 18% and ferritin 197 suggestive of inflammatory anemia/anemia of chronic disease. 07/14: H&H 8.8/29%. Platelet count 287,000. #Morbid obesity -BMI 49.4 kg/m? -Complicates treatment, prognosis, outcomes -Recommend weight loss and lifestyle changes #DVT ppx: Lovenox subcu Charges/Coding Visit Charges Inpatient E&M: 62509 Subs Hosp L2
--- NOTE | 2023-07-18 10:29 | PCM.PN.REN ---
Subjective Subjective Sitting in chair. No overnight events. Reports felt breathless when transferring from bed to chair. Denies any vomiting or diarrhea. Reports feeling full with little amount of food/fluid intake. Objective Data Objective Data Vital Signs: Vital Signs Temp Pulse Resp BP Pulse Ox O2 Del Method O2 Flow Rate 97.6 F L 98 18 157/45 H 93 CPAP 2 07/18/23 08:18 07/18/23 08:18 07/18/23 08:18 07/18/23 08:18 07/18/23 09:09 07/18/23 08:44 07/18/23 09:09 FiO2 4 07/10/23 08:00 Oxygen Flow Rate (L/min) 2 Oxygen Delivery Method CPAP Weight: 140 kg Body Mass Index (BMI) 49.8 Intake & Output: Intake and Output for Last 24 Hours 07/16/23 07/17/23 07/18/23 23:59 23:59 23:59 Intake Total 700 / 700 340 / 340 1000 / 1000 Output Total 1050 / 1050 750 / 750 0 / 0 Balance -350 / -350 -410 / -410 1000 / 1000 Lab / Micro Data 07/18/23 06:08 07/18/23 06:08 Labs: Laboratory Results - last 24 hr 07/17/23 07:45: Differential Comment SCANNED 07/18/23 06:08: WBC 14.1 H, RBC 2.81 L, Hgb 7.9 L, Hct 26.2 L, MCV 93.2, MCH 28.1, MCHC 30.2 L, RDW Std Deviation 49.0 H, RDW Coeff of Fariba 14.5, Plt Count 177, MPV 10.8, Immature Gran % (Auto) 2.300 H, Neut % (Auto) 89.2 H, Lymph % (Auto) 4.6 L, [place] % (Auto) 3.1, Eos % (Auto) 0.5, Baso % (Auto) 0.3, Absolute Neuts (auto) 12.5 H, Absolute Lymphs (auto) 0.65 L, Nucleated RBC % 0, Sodium 139, Potassium 3.3 L, Chloride 115 H, Carbon Dioxide 18.0 L, Anion Gap 6, BUN 42 H, Creatinine 2.38 H, Estim Creat Clear Calc 17.65, Est GFR (MDRD) Af Amer 25 L, Est GFR (MDRD) Non-Af 21 L, BUN/Creatinine Ratio 17.6, Glucose 113 H, Calcium 8.3 L, Random Vancomycin 21.6 H Micro: Microbiology 07/13/23 15:00 Urine, Midstream Urine Culture - Final Melissa albicans 07/09/23 14:05 Blood Culture (Wb) - Port Blood Culture - Final No growth in 5 days. 07/09/23 13:20 Blood Culture (Wb) - Port Blood Culture - Final No growth in 5 days. 07/13/23 16:29 Stool C. difficile DNA Amplification - Final Physical Exam Narrative Alert and oriented x3, NAD. Normal S1, S2. No rubs, murmurs, or gallops. Lungs sounds clear anteriorly. Diminished breath sounds posterior bases. No rhonchi or rales. abdomen soft, non tender No pitting edema of the lower extremities bilaterally Assessment & Plan Assessment/Plan (1) Acute kidney injury: (2) Chronic kidney disease, stage 3b: (3) Acute metabolic acidosis: PLAN: Plan Impression/Plan: 78-year-old woman with past history of chronic kidney disease stage G3b, type 2 diabetes mellitus, hypertension, CAD, HFpEF, diastolic dysfunction, aortic stenosis status post replacement, atrial fibrillation, pulmonary hypertension on treprostinil, GERD, and iron deficiency anemia. The patient was admitted to the hospital on 07/09/2023 with gallstone pancreatitis. She has also been treated for acute hypoxic respiratory failure attributed to HFpEF with diuresis. Nephrology is following for LUIS ALBERTO on CKD. Acute kidney injury on chronic kidney disease stage G3b. Baseline serum creatinine has been around 1.3 to 1.5 mg/dL prior to this admission. The patient likely has underlying CKD due to diabetic kidney disease. Nonoliguric acute kidney injury is likely due to prerenal azotemia. Also to note patient did have CT with IV contrast on 07/09. Serum creatinine 1.2mg/dL on admission, SCr leveled off to around 1.9 to 2 mg/dL for few days --> 07/17 SCr 2.32 mg/dL and today SCr 2.38mg/dL. Quite possibly SCr may be peaking, leveling off. Intravascular volume may be on lower side as patient was admitted with pancreatitis, had been n.p.o., then on liquid diet but not taking much in by mouth, she was also having loose bowel movements; likely output>> input. Patient tolerated gentle IV fluids over past 24 hours. Will stop IV fluids today and monitor renal function off IVF. In talking with patient input is still very minimal and encouraged patient to try and push oral intake as best as she can. Her water intake yesterday was around 500 mL. Overall renal function remains stable, no acute indication for SULFONATOR OPERATOR, potassium and acid/base acceptable and patient is non-oliguric. Blood pressures have been acceptable, not on any antihypertensives. There was no evidence of urinary tract obstruction on CT abdomen/pelvis on 07/09/2023. Urinalysis and fractional secretion of sodium less than 1% are consistent with prerenal LUIS ALBERTO. UPC ratio 1365mg/g. urine sodium 10 on 07/13 Acute metabolic acidosis. suspect secondary to LUIS ALBERTO on CKD and loose bowel movements. Stool for cdiff negative. Improved on oral sodium bicarbonate. acute pancreatitis; on Vanco and Zosyn per ID. Recommend close monitoring Vanco levels given LUIS ALBERTO, Vanco trough level 25.3, vanco random 21.6. HIDA scan did not show acute cholecystitis. Discussed nephrology plan with Dr. Justin
--- NOTE | 2023-07-18 11:11 | CASEMGMT ---
[facility] said they are not able to take patient due to the cost of one of patient's medications. SW spoke with patient and her . Introduced self and role at [facility]. SW explained that [facility] is unable to take patient due to the cost of the medication. Patient and her were both upset. They asked if patient could take her own medication. SW told them SW will ask. Patient also asked about going home. SW told patient SW will review her therapy notes and see what they recommend. SW asked [facility] via [employer] if patient could bring her own medication. Await response. Ermelinda Gutierrez CLINICAL LIAISON GIANA
[2023-07-18] MEDS: 0.9% Saline Lock 10 ML Syringe IV ×2 (11:24→17:51)
[2023-07-18] MEDS: Ensure Plus High Protein 120 ML LIQUID PO (11:33)
[2023-07-18 14:01] VITALS: BP 149/41; PULSE 97; RESP 18; TEMP 36.4; O2SAT 98
[2023-07-18 20:53] VITALS: BP 129/50; PULSE 90; RESP 16; TEMP 36.9; O2SAT 96
[2023-07-18] MEDS: Pramipexole Di-HCl 0.125 MG Tablet PO (21:00)
--- NOTE | 2023-07-19 03:17 | RAD_ITS ---
INDICATION: abd distention and discomfort EXAMINATION/TECHNIQUE: X-RAY - XR Abdomen 1 View COMPARISON: 07/13/2023 CT abdomen and pelvis FINDINGS: BOWEL GAS PATTERN: Non-obstructive. Persistent mild to moderate gaseous colonic distention. FREE AIR: Not assessed on a single supine view. ORGANOMEGALY: Not seen. CALCIFICATIONS: No abnormal calcifications observed. BONES AND SOFT TISSUES: No acute pathology. RAD/Abdomen Single View (Portable) IMPRESSION: Non-obstructive bowel gas pattern. Electronically Signed: Roel Corona MD at 19:42 EST ,
[2023-07-19 04:48] VITALS: BP 150/48; PULSE 78; RESP 16; TEMP 36.9; O2SAT 96
[2023-07-19] MEDS: SILDENAFIL CITRATE 20 MG TABLET PO ×3 (05:01→22:38)
[2023-07-19] MEDS: Piperacil/Tazobactam 3.375 GM in 0.9% Normal Saline (50mL MB+) 50 ML IV ×2 (05:02→17:46)
[2023-07-19 05:44] LABS: Absolute Lymphocyte Count 0.54 X10^3/uL (0.83-4.51); Basophil# 0.03 X10^3/uL; Basophil% 0.2 % (0-1); Eosinophil# 0.11 X10^3/uL; Eosinophils% 0.8 % (0-5); Hemoglobin 7.8 g/dL (12.0-15.0); Lymphocyte # 0.54 X10^3/ul (0.83-4.51); Mean Corp Hgb Conc 31.2 g/dL (32-36); Mean Corpuscular Hgb 28.9 pg (27.0-32.0); Mean Corpuscular Volume 92.6 fL (81-99); Mean Platelet Vol. 10.9 fl (6.2-12.0); Monocyte# 0.44 X10^3/uL; Monocyte% 3.3 % (0-10); NRBC Flagged by Analyzer 0 % (0-5); Neutrophil % 89.5 % (47-70); POSITIVE DIFFERENTIAL YES; Platelet Count 160 K/mm3 (150-450); RBC Distribution Width CV 14.6 % (11.6-14.6); RBC Distribution Width SD 49.3 fl (35.1-43.9); White Blood Count 13.4 K/mm3 (4.4-11.0)
[2023-07-19 05:54] VITALS: BMI 50.2
[2023-07-19 06:05] LABS: Differential Indicated SCAN CRITERIA MET
[2023-07-19 06:07] LABS: Anion Gap 9 (5-15); BUN 38 mg/dL (7-18); BUN/Creat Ratio 16.6 RATIO (10-20); Calcium,Total 8.1 mg/dL (8.5-10.1); Chloride 114 mmol/L (98-107); Creatinine, Serum 2.29 mg/dL (0.55-1.02); EST Glomerular Filtration Rate 22 mL/min (>60); Est Glom Filt Rate - Afr Amer 26 mL/min (>60); Estimated Creatinine Clearance 18.34 ml/min; Glucose 98 mg/dL (74-106); Potassium 3.4 mmol/L (3.5-5.1); Sodium Level 140 mmol/L (136-145)
[2023-07-19 06:11] LABS: Vancomycin, Random Level 18.5 ug/mL (0.0-15.0)
[2023-07-19 06:13] LABS: Differential Comment SCANNED
--- NOTE | 2023-07-19 07:58 | CASEMGMT ---
[facility] is still declining patient. SW will talk with therapy, patient, and her . Ermelinda Gutierrez BENZENE WASHER GIANA
[2023-07-19] MEDS: Vancomycin HCl 750 MG in 0.9% Normal Saline (250mL Bag) 250 ML 250 MG IV (08:44)
[2023-07-19 08:46] VITALS: BP 145/47; PULSE 91; RESP 18; TEMP 36.4; O2SAT 96
[2023-07-19] MEDS: Enoxaparin 30 MG/0.3 ML Syringe SC (09:02)
[2023-07-19] MEDS: Menthol/Lanolin/Calamine/Znox 113 GM Tube 1 APPLIC TOPICAL ×2 (09:02→22:42)
[2023-07-19] MEDS: Pantoprazole Sodium 40 MG Tablet PO (09:02)
[2023-07-19] MEDS: Sodium Bicarbonate 650 MG Tablet PO ×2 (09:02→22:37)
[2023-07-19] MEDS: Ensure Plus High Protein 120 ML LIQUID PO ×3 (09:03→17:46)
--- NOTE | 2023-07-19 09:36 | PCM.RX.CS ---
Consult Antibiotic Management Pharmacy has been consulted to manage selected antiobiotic: Vancomycin Type of Intervention Type of Consult: Follow-up Prior Doses of Antibiotics Prior Doses of Antibiotics Received/Current Regimen: the most recent dose was vanc 1000mg IV x1 on 07/16 at 0908 Labs Labs: Sodium 140 mmol/L (136-145) 07/19/23 05:38 Potassium 3.4 mmol/L (3.5-5.1) L 07/19/23 05:38 Chloride 114 mmol/L (98-107) H 07/19/23 05:38 Carbon Dioxide 17.0 mmol/L (21.0-32.0) L 07/19/23 05:38 Anion Gap 9 (5-15) 07/19/23 05:38 BUN 38 mg/dL (7-18) H 07/19/23 05:38 Creatinine 2.29 mg/dL (0.55-1.02) H 07/19/23 05:38 Est GFR (MDRD) Af Amer 26 mL/min (>60) L 07/19/23 05:38 Est GFR (MDRD) Non-Af 22 mL/min (>60) L 07/19/23 05:38 BUN/Creatinine Ratio 16.6 RATIO (10-20) 07/19/23 05:38 Glucose 98 mg/dL (74-106) 07/19/23 05:38 Vancomycin Trough 25.3 ug/mL (5.0-15.0) H 07/17/23 09:42 Random Vancomycin 18.5 ug/mL (0.0-15.0) H 07/19/23 05:38 Microbiology Microbiology: Microbiology 07/13/23 15:00 Urine, Midstream Urine Culture - Final Melissa albicans 07/09/23 14:05 Blood Culture (Wb) - Port Blood Culture - Final No growth in 5 days. 07/09/23 13:20 Blood Culture (Wb) - Port Blood Culture - Final No growth in 5 days. 07/13/23 16:29 Stool C. difficile DNA Amplification - Final Dosing Weight Weight used for dosin.1 kg Estimated Creatinine Clearance Estimated Creatinine Clearance: 28.5ml/min Goal Trough Goal Trough: 15-20 mcg/mL Pharmacy Plan for Drug Dosing Pharmacy Plan for Drug Dosing: The vanc random level drawn at 05:38 today was back below 20 at 18.5. Will order a dose of 750mg IV x1 today. Did not want to give a larger dose based on the patient's weight per the usual protocol since random levels have been very high recently. Will order another random level tomorrow for 24 hours after the dose is given today. Will dose based off random levels for now. The patient's CrCl of 28.5 ml/min was calculated using an adjusted body weight. Pharmacy Service will continue to monitor and adjust dosing as required. Follow-Up Labs Follow-Up Labs: Trough: Vancomycin (random) Date/Time Labs Ordered Labs to be done on [date and time ordered]: 07/20 0900
[2023-07-19] MEDS: Potassium Chloride Oral Tablet 20 MEQ 40 MEQ PO (10:15)
--- NOTE | 2023-07-19 12:01 | PCM.PN.REN ---
Subjective Subjective Following for LUIS ALBERTO on CKD. The patient denies chest pain. She is not short of breath at rest but has dyspnea on exertion. The patient reports bloating sensation of the abdomen. There is no nausea, vomiting or diarrhea. Appetite is poor. Objective Data Objective Data Vital Signs: Vital Signs Temp Pulse Resp BP Pulse Ox O2 Del Method O2 Flow Rate 97.5 F L 91 18 145/47 H 96 Room Air 2 07/19/23 08:46 07/19/23 08:46 07/19/23 08:46 07/19/23 08:46 07/19/23 08:46 07/19/23 10:29 07/18/23 09:09 FiO2 4 07/10/23 08:00 Oxygen Flow Rate (L/min) 2 Oxygen Delivery Method Room Air Weight: 141.1 kg Body Mass Index (BMI) 50.2 Intake & Output: Intake and Output for Last 24 Hours 07/17/23 07/18/23 07/19/23 23:59 23:59 23:59 Intake Total 340 / 340 1675 / 1675 555 / 555 Output Total 750 / 750 50 / 50 0 / 0 Balance -410 / -410 1625 / 1625 555 / 555 Lab / Micro Data 07/19/23 05:38 07/19/23 05:38 Labs: Laboratory Results - last 24 hr 07/19/23 05:38: WBC 13.4 H, RBC 2.70 L, Hgb 7.8 L, Hct 25.0 L, MCV 92.6, MCH 28.9, MCHC 31.2 L, RDW Std Deviation 49.3 H, RDW Coeff of Fariba 14.6, Plt Count 160, MPV 10.9, Immature Gran % (Auto) 2.200 H, Neut % (Auto) 89.5 H, Lymph % (Auto) 4.0 L, Amelia % (Auto) 3.3, Eos % (Auto) 0.8, Baso % (Auto) 0.2, Absolute Neuts (auto) 12.0 H, Absolute Lymphs (auto) 0.54 L, Nucleated RBC % 0, Differential Comment SCANNED, Sodium 140, Potassium 3.4 L, Chloride 114 H, Carbon Dioxide 17.0 L, Anion Gap 9, BUN 38 H, Creatinine 2.29 H, Estim Creat Clear Calc 18.34, Est GFR (MDRD) Af Amer 26 L, Est GFR (MDRD) Non-Af 22 L, BUN/Creatinine Ratio 16.6, Glucose 98, Calcium 8.1 L, Random Vancomycin 18.5 H Micro: Microbiology 07/13/23 15:00 Urine, Midstream Urine Culture - Final Melissa albicans 07/09/23 14:05 Blood Culture (Wb) - Port Blood Culture - Final No growth in 5 days. 07/09/23 13:20 Blood Culture (Wb) - Port Blood Culture - Final No growth in 5 days. 07/13/23 16:29 Stool C. difficile DNA Amplification - Final Physical Exam Narrative Alert and oriented x3, NAD. Normal S1, S2. No rubs, murmurs, or gallops. Lungs sounds clear anteriorly. Diminished breath sounds posterior bases. No rhonchi or rales. abdomen soft, non tender 1+ pitting edema of the lower extremities bilaterally Assessment & Plan Assessment/Plan (1) Acute kidney injury: (2) Chronic kidney disease, stage 3b: (3) Acute metabolic acidosis: PLAN: Plan Impression/Plan: 78-year-old woman with past history of chronic kidney disease stage G3b, type 2 diabetes mellitus, hypertension, CAD, HFpEF, diastolic dysfunction, aortic stenosis status post replacement, atrial fibrillation, pulmonary hypertension on treprostinil, GERD, and iron deficiency anemia. The patient was admitted to the hospital on 07/09/2023 with gallstone pancreatitis. She has also been treated for acute hypoxic respiratory failure attributed to HFpEF with diuresis. Nephrology is following for LUIS ALBERTO on CKD. Acute kidney injury on chronic kidney disease stage G3b. Baseline serum creatinine has been around 1.3 to 1.5 mg/dL prior to this admission. The patient likely has underlying CKD due to diabetic kidney disease. Nonoliguric acute kidney injury is likely due to prerenal azotemia. Also to note patient did have CT with IV contrast on 07/09. Serum creatinine 1.2 mg/dL on admission, SCr leveled off to around 1.9 to 2.0 mg/dL for few days --> 07/17 SCr 2.32 mg/dL and SCr 2.38 mg/dL on the 07/18/2023. LUIS ALBERTO is most likely from ischemic ATN at this point. Serum creatinine stable today at 2.29 mg/dL (07/19/2023). Quite possibly SCr may be plateauing. Intravascular volume may be on lower side as patient was admitted with pancreatitis, had been n.p.o., then on liquid diet but not taking much in by mouth, she was also having loose bowel movements; likely output>> input. IV fluid was stopped yesterday on 07/18/2023. We will monitor renal function off IVF. In talking with patient input is still very minimal and encouraged patient to try and push oral intake as best as she can. There is no acute indication for kidney replacement therapy. Acute metabolic acidosis. suspect secondary to LUIS ALBERTO on CKD and loose bowel movements. Stool for cdiff negative. Improved on oral sodium bicarbonate. Serum bicarbonate level has been as low as 13 mmol/L on 07/17/2023. Serum bicarbonate level stable today at 17 mmol/L. acute pancreatitis; on Vanco and Zosyn per ID. Recommend close monitoring Vanco levels given LUIS ALBERTO, Vanco trough level 25.3, vanco random 21.6. HIDA scan did not show acute cholecystitis. Nephrology plan will be discussed with Dr. Justin
--- NOTE | 2023-07-19 12:12 | CASEMGMT ---
SW spoke with therapy and they feel patient would benefit from going somewhere short term. However, they also feel patient would be able to manage at home with . SW spoke with patient and her again. [facility] is not willing to take patient. Patient said she just wants to go home and be done with all of the fuss. SW mentioned that if patient were to go home and it did not work out resulting in her returning to the hospital. She may end up going to a SNF closer to [place] whereas if she went to a SNF now she could get it out of the way before [place]. Patient said if she had a bedside commode she would be fine. Patient normally sleeps in her lift chair and has a walker. SW let them know their daughter called and is concerned. They were fine with SW calling and updating their daughter. SW told patient and her to talk about it and SW will check back again. SW called patient's daughter Rhianna and explained conversation above. Rhianna understands patient cannot be forced to go anywhere. Rhianna appreciated SW's return call. Ermelinda Gutierrez [employer]
[2023-07-19 13:50] VITALS: BP 179/54; PULSE 93; RESP 18; TEMP 36.4; O2SAT 98
--- NOTE | 2023-07-19 13:58 | NURSING ---
Patient's brought in new home meds with new titration scehdule. meds given to pharmacy.
--- NOTE | 2023-07-19 14:54 | PN.HOSP_ITS ---
Reason for Visit Reason for Visit: Diagnoses Acute metabolic acidosis (07/09/23) Essential (primary) hypertension (07/09/23) Longstanding persistent atrial fibrillation (07/09/23) Chronic diastolic (congestive) heart failure (07/09/23) Pleural effusion, not elsewhere classified (07/09/23) Acute respiratory failure with hypoxia (07/09/23) Biliary acute pancreatitis without necrosis or infection (07/09/23) Drug induced acute pancreatitis without necrosis or infection (07/09/23) Discitis, unspecified, lumbar region (07/09/23) Acute kidney failure, unspecified (07/09/23) Chronic kidney disease, stage 3b (07/09/23) Presence of prosthetic heart valve (07/09/23) Subjective Subjective Has felt like she has had some gas and some distention little bit of irritation, still having bowel movements, no nausea, still eating but not very well she is n ot very hungry Objective Data Objective Data Vital Signs: Vital Signs Temp Pulse Resp BP Pulse Ox O2 Del Method O2 Flow Rate 97.6 F L 93 18 179/54 H 98 CPAP 2 07/19/23 13:50 07/19/23 13:50 07/19/23 13:50 07/19/23 13:50 07/19/23 13:50 07/19/23 13:50 07/19/23 13:35 FiO2 4 07/10/23 08:00 Oxygen Flow Rate (L/min) 2 Oxygen Delivery Method CPAP Weight: 141.1 kg Body Mass Index (BMI) 50.2 Intake & Output: Intake and Output for Last 24 Hours 07/17/23 07/18/23 07/19/23 23:59 23:59 23:59 Intake Total 340 / 340 1675 / 1675 555 / 555 Output Total 750 / 750 50 / 50 0 / 0 Balance -410 / -410 1625 / 1625 555 / 555 Lab / Micro Data 07/19/23 05:38 07/19/23 05:38 Labs: Laboratory Results - last 24 hr 07/19/23 05:38: WBC 13.4 H, RBC 2.70 L, Hgb 7.8 L, Hct 25.0 L, MCV 92.6, MCH 2 8.9, MCHC 31.2 L, RDW Std Deviation 49.3 H, RDW Coeff of Fariba 14.6, Plt Count 160, MPV 10.9, Immature Gran % (Auto) 2.200 H, Neut % (Auto) 89.5 H, Lymph % (Auto) 4.0 L, Charlton % (Auto) 3.3, Eos % (Auto) 0.8, Baso % (Auto) 0.2, Absolute Neuts (auto) 12.0 H, Absolute Lymphs (auto) 0.54 L, Nucleated RBC % 0, Differential Comment SCANNED, Sodium 140, Potassium 3.4 L, Chloride 114 H, Ca rbon Dioxide 17.0 L, Anion Gap 9, BUN 38 H, Creatinine 2.29 H, Estim Creat Clear Calc 18.34, Est GFR (MDRD) Af Amer 26 L, Est GFR (MDRD) Non-Af 22 L, BUN/Creatinine Ratio 16.6, Glucose 98, Calcium 8.1 L, Random Vancomycin 18.5 H Micro: Microbiology 07/13/23 15:00 Urine, Midstream Urine Culture - Final Melissa albicans 07/09/23 14:05 Blood Culture (Wb) - Port Blood Culture - Final No growth in 5 days. 07/09/23 13:20 Blood Culture (Wb) - Port Blood Culture - Final No growth in 5 days. 07/13/23 16:29 Stool C. difficile DNA Amplification - Final Physical Exam Narrative General: Alert, oriented, no acute distress HEENT: Atraumatic, normocephalic Eyes: Anicteric, normal conjunctiva, extraocular movements grossly intact Neck: Supple Respiratory: Somewhat diminished at the bases, likely secondary to body habitus, no wheezes Cardiovascular: Regular rate GI: Feels a little sore on deep palpation in the upper portions of abdomen without rebound, guarding, rigidity Extremities: trace LE pitting edema Musculoskeletal: Moving all extremities Neuro: No overt focal neurological deficits Skin: Some chronic lower extremity changes Psych: Cooperative Assessment & Plan Assessment/Plan (1) Acute gallstone pancreatitis: (2) Acute hypoxemic respiratory failure: (3) Chronic diastolic (congestive) heart failure: (4) Essential (primary) hypertension: (5) H/O aortic valve replacement: (6) Longstanding persistent atrial fibrillation: PLAN: Plan 78-year-old female is being admitted in ICU after sudden onset of predominantly severe epigastric and RUQ abdominal pain, low blood pressure 89/43, nausea with dry heaves, sent to ED from infusion center where she was getting vancomycin and Rocephin for history of discitis and high leverage suggestive of acute pancreatitis. No fever. She had 2 BM in the morning on the day of admission #Acute pancreatitis -Lipase >5000 w/ imaging consistent with pancreatitis. CT abdomen individually reviewed and shows inflammation around gallbladder and pancreas, multiple gallstones with GB wall thickening and pericholecystic fluid suggesting cholecystitis. But gallbladder not distended. Patient was evaluated by surgeon and there is anticipation of laparoscopic surgery after pancreatitis resolved. Hematocrit on admission was 29% currently 34.3. BUN 14. Heart rate and blood pressure in acceptable limit. Hematocrit 29.8 and BUN 14 within acceptable limit. Continue IV fluid. Pain medication Dilaudid. -Patient already on vancomycin and Rocephin for history of discitis, and Rocephin was changed to Zosyn. -N.p.o. IV fluid. 07/11: Mild leukocytosis worse than yesterday. Patient on IV antibiotics. 07/12 leukocytosis worsening. Patient on IV antibiotics. No fever. Blood culture negative for 48 hours. 07/13: Patient does not have fever but leukocytosis worsening. Gradually went worse from normal to 17.2 thousand. She is covered with antibiotics vancomycin and Zosyn unclear whether it is from medication or other inflammatory condition. CT abdomen without contrast ordered. Discussed with the surgeon. 07/14: CT abdomen reviewed. It was similar finding as previous CT scan. Multiple gallstones. Increased ascites in the abdomen and pelvis. Degenerative changes in the spine with endplate irregularity at L2-3 on right and the diagnosis of discitis/osteomyelitis. Patient is on IV antibiotics. Stool for C. difficile negative. -07/15: Patient for HIDA today -07/16: HIDA negative, diet advanced to fulls, no plans for cholecystectomy -07/17: Fulls until pain resolved but can be discharged on this diet -07/18: Continue supportive care -07/19: Having bowel movements and no nausea, had a little bit of abdominal bloating and discomfort today, this did not change with her eating and she just does not have a very good appetite, will obtain KUB, will get CMP instead of BMP in a.m. Did have some increased diarrhea episodes overnight so will obtain C. difficile and enteric panel. If negative may be able to start antidiarrheal which may also help with fluid loss #Recent discitis -ID was consulted and note reviewed. Patient to stop date of vancomycin and ceftriaxone 07/21/2023. Back pain overall much improved. Pancreatitis is a rare reported reaction with ceftriaxone so could be a possible cause. Currently on vancomycin and Zosyn. 07/14: Vanco trough level was normal limit. Pharmacy is following the Vanco limit. Blood cultures x2 negative for 48 hours. -07/15: Infectious disease following, will have stop date of 07/21 for antibiotics -07/17: Patient can stop IV antibiotics on DC #Acute hypoxia/Hx chronic HFpEF per documentation/Hx AV bioprosthetic replacement/AARTI with CPAP -Patient 75% on room air in ED improved to 92% on 6 L, Currently on 4 L of oxygen. -Most recent echo February 2023 with PASP of 70, bioprosthetic aortic valve and EF of 60%, no comment on diastolic function but has documentation in chart of heart failure with preserved ejection fraction -Left pleural effusion noted on CT scan, overall fairly minimal -Patient was put on Ventimask and then BiPAP and car and yard supervisor was consulted. During the day patient improved and is stable for transfer out of ICU. 07/11: Patient visibly looks short of breath. Chest x-ray portable ordered. Lasix 40 mg IV ordered. 07/13: Repeat chest x-ray PA and lateral ordered. No maggie crepitations on auscultation. -07/15: Is improving but still does not feel back to baseline, continue home CPAP -07/18: Stable #LUIS ALBERTO on CKD stage IIIb: 07/11: Patient creatinine went up1.68. Her baseline is around 1.2. The patient CT abdomen pelvis with IV contrast on 07/09/2023 so possible contrast related nephrotoxicity but it was 2 days ago. Patient is on IV fluid normal saline but seems fluid overload and lung condition therefore chest x-ray and furosemide ordered. Monitor kidney function further worsening will need nephrology consult. Medications reviewed and does not seem any in nephrotoxic medications. ID prefer to continue vancomycin and Zosyn dose needs to be adjusted. 07/12: Creatinine went up to 2.0. BUN 35. Anion gap 8, bicarb 18. Sodium and chloride on higher side. Discussed with the school crossing guard. Patient treated for 7 L of positive fluid balance and was short of breath and lung crepitation therefore Lasix 40 mg IV 1 dose was given yesterday. We agreed on just monitoring without giving IV fluids or diuretics. 07/13: Creatinine seems better. Discussed with the school crossing guard. Total positive 7.7 L positive fluid balance. Urine output about 450 mL. Urine electrolytes ordered. 07/14: BUNs/creatinine 36/1.83. Discussed with the school crossing guard. Encouraged IV fluid. Kidney function gradually improving. Avoid nephrotoxic medications. Anion gap normal, normal anion gap metabolic acidosis. Mild hypokalemia potassium getting replaced. -07/15: Slightly worse today, encourage oral intake, nephrology following -07/16: Worsening in slightly, discussed with nephrology, it is felt given patient's poor p.o. intake and receiving dye earlier in her hospital stay that this combination may have led to her worsening kidney function, patient advance to full's, encourage p.o. and will recheck tomorrow, no present indication for CRRT. -07/17: Slightly worse today, patient received some gentle IV fluids, assess for improvement tomorrow -07/18: Slightly worsened again today, had Govea taken out yesterday and has not urinated but still does not have significant amount on bladder scan, if still not urinating well straight cath. Encouraged to increase p.o. intake by nephrology, discussed with nephrology -07/19: Has been relatively stable today, continue to encourage p.o. intake #GERD -Continue PPI #afib -Patient reports chronic A-fib but has had multiple GI bleeds most recently in February so has been taken off of all anticoagulation -She is undergoing evaluation for Watchman which is the ultimate goal patient is still in A-fib. -07/15: If further tachycardia may need rate control -07/16: Patient seems to primarily be tachycardic when she gets up and moves around, suspect this is physiologic and largely due to deconditioning and possibly with a component of being intravascularly down, patient's diet advanced today #pulmonary HTN: She was started in October 2022 on treprostinil for pulmonary hypertension by Dr. Nelson and dose has gradually been increased. Patient on treprostinil 4.5 mg tablet 3 times a day an additional 0.125 mg on every Saturday until final goal is achieved. Currently it is on hold. I called Dr. Nelson phone and left a voicemail to call back. 07/[address] Nelson yesterday and today but did not call back. Left a voice message 07/13: Discussed with our engine lathe set up operator tool, Dr. Cartagena. Cannot discontinue treprostinil as patient can have rebound pulmonary hypertension with risk of cardiac arrest. 07/14: Patient has diarrhea of 4-5 bowel movements since the beginning of the starting treprostinil. -07/15: will need to follow-up with her engine lathe set up operator tool #Chronic anemia -Does not appear to be acutely bleeding 07/13: Hemoglobin slight drop to 8.9 from baseline around 10.2. Monitor CBC. Patient had recent iron work-up on April 2023 which shows iron 48, TIBC low normal at 268 iron saturation 18% and ferritin 197 suggestive of inflammatory an emia/anemia of chronic disease. 07/14: H&H 8.8/29%. Platelet count 287,000. #Morbid obesity -BMI 49.4 kg/m? -Complicates treatment, prognosis, outcomes -Recommend weight loss and lifestyle changes #DVT ppx: Lovenox subcu Charges/Coding Visit Charges Inpatient E&M: 28312 Subs Hosp L2
--- NOTE | 2023-07-19 16:42 | CASEMGMT ---
SW attempted 3 separate times to check back with patient and her , however SW was unsuccessful. Patient was either getting patient care or sleeping. SW will check back with patient to confirm the d/c plan. Ermelinda FARIA
[2023-07-19 22:22] VITALS: BP 108/56; PULSE 95; RESP 18; TEMP 37; O2SAT 96
[2023-07-19] MEDS: Pramipexole Di-HCl 0.125 MG Tablet PO (22:35)
--- NOTE | 2023-07-20 00:30 | NURSING ---
Bladder scanned for 120mL
[2023-07-20 04:00] VITALS: BP 140/50; PULSE 76; RESP 16; TEMP 37; O2SAT 100
[2023-07-20 04:37] VITALS: BMI 50.3
[2023-07-20] MEDS: SILDENAFIL CITRATE 20 MG TABLET PO ×3 (05:47→21:40)
[2023-07-20] MEDS: Piperacil/Tazobactam 3.375 GM in 0.9% Normal Saline (50mL MB+) 50 ML IV (05:50)
[2023-07-20 07:15] LABS: Absolute Lymphocyte Count 0.49 X10^3/uL (0.83-4.51); Absolute Neutrophil Count 9.7 X10^3/uL (2.0-7.7); Basophil# 0.02 X10^3/uL; Basophil% 0.2 % (0-1); Eosinophil# 0.12 X10^3/uL; Eosinophils% 1.1 % (0-5); Hemoglobin 7.8 g/dL (12.0-15.0); Lymphocyte # 0.49 X10^3/ul (0.83-4.51); Lymphocyte % 4.5 % (19-41); Mean Corp Hgb Conc 31.2 g/dL (32-36); Mean Corpuscular Volume 92.9 fL (81-99); Mean Platelet Vol. 11.3 fl (6.2-12.0); Monocyte# 0.42 X10^3/uL; Monocyte% 3.8 % (0-10); NRBC Flagged by Analyzer 0 % (0-5); Neutrophil # 9.73 X10^3/uL (2.7-7.7); Neutrophil % 88.3 % (47-70); POSITIVE DIFFERENTIAL YES; Platelet Count 147 K/mm3 (150-450); RBC Distribution Width CV 14.8 % (11.6-14.6); RBC Distribution Width SD 49.7 fl (35.1-43.9); Red Blood Count 2.69 M/mm3 (4.2-5.4)
[2023-07-20 07:31] LABS: Differential Indicated SCAN CRITERIA MET
[2023-07-20 08:12] VITALS: O2SAT 96
[2023-07-20] MEDS: Ensure Plus High Protein 120 ML LIQUID PO ×3 (08:54→17:24)
[2023-07-20] MEDS: Menthol/Lanolin/Calamine/Znox 113 GM Tube 1 APPLIC TOPICAL ×2 (08:54→21:45)
[2023-07-20] MEDS: Sodium Bicarbonate 650 MG Tablet PO ×2 (08:55→21:44)
[2023-07-20] MEDS: Enoxaparin 30 MG/0.3 ML Syringe SC (08:55)
[2023-07-20] MEDS: Pantoprazole Sodium 40 MG Tablet PO (08:55)
--- NOTE | 2023-07-20 08:59 | CASEMGMT ---
Social Work SW met w/pt, she states she does want to go home rather than try another SNF. She would like home health and a bedsided commode. SW will check w/physician in regard to when pt is ready for discharge. SHERRILL Chow
[2023-07-20 09:32] LABS: ALB/GLOB Ratio 0.5 RATIO (0.9-2.4); AST(SGOT) 32 U/L (15-37); Alanine Aminotransfer ALT/SGPT 25 U/L (13-56); Albumin, Serum 1.9 g/dL (3.2-5.0); Alkaline Phosphatase 309 U/L (45-117); Anion Gap 8 (5-15); BUN 42 mg/dL (7-18); BUN/Creat Ratio 17.8 RATIO (10-20); Calcium,Total 8.6 mg/dL (8.5-10.1); Chloride 117 mmol/L (98-107); Creatinine, Serum 2.36 mg/dL (0.55-1.02); EST Glomerular Filtration Rate 21 mL/min (>60); Est Glom Filt Rate - Afr Amer 26 mL/min (>60); Globulin 3.6 g/dL (2.2-4.2); Glucose 109 mg/dL (74-106); Lipase 429 U/L (13-75); Potassium 3.6 mmol/L (3.5-5.1); Protein, Total 5.5 g/dL (6.4-8.2); Sodium Level 142 mmol/L (136-145)
[2023-07-20 10:00] VITALS: BP 134/53; PULSE 90; RESP 18; TEMP 36.3; O2SAT 95
[2023-07-20 11:22] LABS: Differential Comment SCANNED
--- NOTE | 2023-07-20 13:43 | CASEMGMT ---
RN SHY NOTE: Pt informed by Essence CASTELLANO, that pt wishes to discharge home and would like HHC. RN CM to room. Pt sitting up in chair in room. @ bedside. Pt and feel pt will be safe to discharge home and they would like HHC. A list of HHC providers including quality and resource use data and consistent with the patient?s preferred geographic region, medical needs, and insurance network were provided from the [employer] Guide. Pt chooses [facility] as first choice. They were made aware HHC not able to officially be set up on the weekend but that a referral will be made today and CM or enterprise resource planner will f/u with them on Saturday re: if they are able to accept. They voice understanding. Order placed for HHC: SN and PT/OT. VM left on [facility]'s referral line re: referral. If pt qualifies for home O2, she denies having preference of DME co and states is okay with [facility], as they are affiliated w/[facility]. Green sheet placed on chart w/home O2 set up instructions, if pt qualifies. She verifies they do have a pulse ox. BSC: Pt and made aware that BSC is unable to be delivered on the weekend and unable to be billed through insurance on the weekend. Discussed places a BSC may be available on the weekend. states if pt is medically ready for discharge tomorrow, he [facility] and willing to pay [id number]. Call placed to [facility]. They do have 2 BSC's available and they both go up to [phone] #. Cost of these are $59.99 and $69.99. states this is affordable. also provided w/script for BSC as he may be able to try and have pt's insurance billed for this item or get reimbursed. Pt and made aware, if pt does not discharge until Saturday or later, then CM can assist w/getting BSC for pt and have it billed through [facility]. Plan: Home w/spousal support and discharge plans in place. If discharges home Saturday, plans to cigar packer and picker BSC @ [facility] on their way home. If discharges home Saturday or later, CM to assist w/getting BSC for pt. HHC referral made w/[facility] via . CM or enterprise resource planner to f/u with [facility] on Saturday re: if they are able to accept. Follow for possible home O2. Green sheet on chart. Bethanie FLORESN RN CM
--- NOTE | 2023-07-20 15:40 | PCM.PN.HOSP ---
Reason for Visit Reason for Visit: Diagnoses Acute metabolic acidosis (07/09/23) Essential (primary) hypertension (07/09/23) Longstanding persistent atrial fibrillation (07/09/23) Chronic diastolic (congestive) heart failure (07/09/23) Pleural effusion, not elsewhere classified (07/09/23) Acute respiratory failure with hypoxia (07/09/23) Biliary acute pancreatitis without necrosis or infection (07/09/23) Drug induced acute pancreatitis without necrosis or infection (07/09/23) Discitis, unspecified, lumbar region (07/09/23) Acute kidney failure, unspecified (07/09/23) Chronic kidney disease, stage 3b (07/09/23) Presence of prosthetic heart valve (07/09/23) Subjective Subjective Patient reports she had some epigastric pain and nausea last night but that is feeling better today, breathing about the same, bowel movements still multiple but roughly unchanged Objective Data Objective Data Vital Signs: Vital Signs Temp Pulse Resp BP Pulse Ox O2 Del Method O2 Flow Rate 97.3 F L 90 18 134/53 H 95 CPAP 2 07/20/23 10:00 07/20/23 10:00 07/20/23 10:00 07/20/23 10:00 07/20/23 10:00 07/20/23 10:00 07/20/23 11:38 FiO2 4 07/10/23 08:00 Oxygen Flow Rate (L/min) 2 Oxygen Delivery Method CPAP Weight: 141.6 kg Body Mass Index (BMI) 50.3 Intake & Output: Intake and Output for Last 24 Hours 07/18/23 07/19/23 07/20/23 23:59 23:59 23:59 Intake Total 1675 / 1675 905 / 905 350 / 350 Output Total 50 / 50 50 / 50 200 / 200 Balance 1625 / 1625 855 / 855 150 / 150 Lab / Micro Data 07/20/23 06:37 07/20/23 06:37 Labs: Laboratory Results - last 24 hr 07/20/23 06:37: WBC 11.0, RBC 2.69 L, Hgb 7.8 L, Hct 25.0 L, MCV 92.9, MCH 29.0, MCHC 31.2 L, RDW Std Deviation 49.7 H, RDW Coeff of Fariba 14.8 H, Plt Count 147 L, MPV 11.3, Immature Gran % (Auto) 2.100 H, Neut % (Auto) 88.3 H, Lymph % (Auto) 4.5 L, [place] % (Auto) 3.8, Eos % (Auto) 1.1, Baso % (Auto) 0.2, Absolute Neuts (auto) 9.7 H, Absolute Lymphs (auto) 0.49 L, Nucleated RBC % 0, Differential Comment SCANNED, Sodium 142, Potassium 3.6, Chloride 117 H, Carbon Dioxide 17.0 L, Anion Gap 8, BUN 42 H, Creatinine 2.36 H, Estim Creat Clear Calc 17.80, Est GFR (MDRD) Af Amer 26 L, Est GFR (MDRD) Non-Af 21 L, BUN/Creatinine Ratio 17.8, Glucose 109 H, Calcium 8.6, Total Bilirubin 0.40, AST 32, ALT 25, Alkaline Phosphatase 309 H, Total Protein 5.5 L, Albumin 1.9 L, Globulin 3.6, Albumin/Globulin Ratio 0.5 L, Lipase 429 H Micro: Microbiology 07/20/23 09:00 Stool Enteric Bacteriology - Final 07/20/23 09:00 Stool C. difficile DNA Amplification - Final 07/13/23 15:00 Urine, Midstream Urine Culture - Final Melissa albicans 07/09/23 14:05 Blood Culture (Wb) - Port Blood Culture - Final No growth in 5 days. 07/09/23 13:20 Blood Culture (Wb) - Port Blood Culture - Final No growth in 5 days. 07/13/23 16:29 Stool C. difficile DNA Amplification - Final Radiography Diagnostic Testing: Radiology Impression KUB X-Ray 07/19/23 03:17 IMPRESSION: Non-obstructive bowel gas pattern. Electronically Signed: Roel Corona MD at 19:42 EST , Physical Exam Narrative General: Alert, oriented, no acute distress HEENT: Atraumatic, normocephalic Eyes: Anicteric, normal conjunctiva, extraocular movements grossly intact Neck: Supple Respiratory: Somewhat diminished at the bases, likely secondary to body habitus, no wheezes Cardiovascular: Regular rate GI: Nontender today without rebound, guarding, rigidity Extremities: trace LE pitting edema Musculoskeletal: Moving all extremities Neuro: No overt focal neurological deficits Skin: Some chronic lower extremity changes Psych: Cooperative Assessment & Plan Assessment/Plan (1) Acute gallstone pancreatitis: (2) Acute hypoxemic respiratory failure: (3) Chronic diastolic (congestive) heart failure: (4) Essential (primary) hypertension: (5) H/O aortic valve replacement: (6) Longstanding persistent atrial fibrillation: PLAN: Plan 78-year-old female is being admitted in ICU after sudden onset of predominantly severe epigastric and RUQ abdominal pain, low blood pressure 89/43, nausea with dry heaves, sent to ED from infusion center where she was getting vancomycin and Rocephin for history of discitis and high leverage suggestive of acute pancreatitis. No fever. She had 2 BM in the morning on the day of admission #Acute pancreatitis -Lipase >5000 w/ imaging consistent with pancreatitis. CT abdomen individually reviewed and shows inflammation around gallbladder and pancreas, multiple gallstones with GB wall thickening and pericholecystic fluid suggesting cholecystitis. But gallbladder not distended. Patient was evaluated by surgeon and there is anticipation of laparoscopic surgery after pancreatitis resolved. Hematocrit on admission was 29% currently 34.3. BUN 14. Heart rate and blood pressure in acceptable limit. Hematocrit 29.8 and BUN 14 within acceptable limit. Continue IV fluid. Pain medication Dilaudid. -Patient already on vancomycin and Rocephin for history of discitis, and Rocephin was changed to Zosyn. -N.p.o. IV fluid. 07/11: Mild leukocytosis worse than yesterday. Patient on IV antibiotics. 07/12 leukocytosis worsening. Patient on IV antibiotics. No fever. Blood culture negative for 48 hours. 07/13: Patient does not have fever but leukocytosis worsening. Gradually went worse from normal to 17.2 thousand. She is covered with antibiotics vancomycin and Zosyn unclear whether it is from medication or other inflammatory condition. CT abdomen without contrast ordered. Discussed with the surgeon. 07/14: CT abdomen reviewed. It was similar finding as previous CT scan. Multiple gallstones. Increased ascites in the abdomen and pelvis. Degenerative changes in the spine with endplate irregularity at L2-3 on right and the diagnosis of discitis/osteomyelitis. Patient is on IV antibiotics. Stool for C. difficile negative. -07/15: Patient for HIDA today -07/16: HIDA negative, diet advanced to fulls, no plans for cholecystectomy -07/17: Fulls until pain resolved but can be discharged on this diet -07/18: Continue supportive care -07/19: Having bowel movements and no nausea, had a little bit of abdominal bloating and discomfort today, this did not change with her eating and she just does not have a very good appetite, will obtain KUB, will get CMP instead of BMP in a.m. Did have some increased diarrhea episodes overnight so will obtain C. difficile and enteric panel. If negative may be able to start antidiarrheal which may also help with fluid loss -07/20: C. difficile and enteric panel negative, will start loperamide, had another episode of nausea and epigastric pain overnight that is resolved lipase is elevated this a.m., discussed with surgery, if patient tolerating liquids now can continue on repeat in the a.m., no other acute intervention or investigation warranted at this time #Recent discitis -ID was consulted and note reviewed. Patient to stop date of vancomycin and ceftriaxone 07/21/2023. Back pain overall much improved. Pancreatitis is a rare reported reaction with ceftriaxone so could be a possible cause. Currently on vancomycin and Zosyn. 07/14: Vanco trough level was normal limit. Pharmacy is following the Vanco limit. Blood cultures x2 negative for 48 hours. -07/15: Infectious disease following, will have stop date of 07/21 for antibiotics -07/17: Patient can stop IV antibiotics on DC #Acute hypoxia/Hx chronic HFpEF per documentation/Hx AV bioprosthetic replacement/AARTI with CPAP -Patient 75% on room air in ED improved to 92% on 6 L, Currently on 4 L of oxygen. -Most recent echo February 2023 with PASP of 70, bioprosthetic aortic valve and EF of 60%, no comment on diastolic function but has documentation in chart of heart failure with preserved ejection fraction -Left pleural effusion noted on CT scan, overall fairly minimal -Patient was put on Ventimask and then BiPAP and marine drafter was consulted. During the day patient improved and is stable for transfer out of ICU. 07/11: Patient visibly looks short of breath. Chest x-ray portable ordered. Lasix 40 mg IV ordered. 07/13: Repeat chest x-ray PA and lateral ordered. No maggie crepitations on auscultation. -07/15: Is improving but still does not feel back to baseline, continue home CPAP -07/18: Stable #LUIS ALBERTO on CKD stage IIIb: 07/11: Patient creatinine went up1.68. Her baseline is around 1.2. The patient CT abdomen pelvis with IV contrast on 07/09/2023 so possible contrast related nephrotoxicity but it was 2 days ago. Patient is on IV fluid normal saline but seems fluid overload and lung condition therefore chest x-ray and furosemide ordered. Monitor kidney function further worsening will need nephrology consult. Medications reviewed and does not seem any in nephrotoxic medications. ID prefer to continue vancomycin and Zosyn dose needs to be adjusted. 07/12: Creatinine went up to 2.0. BUN 35. Anion gap 8, bicarb 18. Sodium and chloride on higher side. Discussed with the company laundry worker. Patient treated for 7 L of positive fluid balance and was short of breath and lung crepitation therefore Lasix 40 mg IV 1 dose was given yesterday. We agreed on just monitoring without giving IV fluids or diuretics. 07/13: Creatinine seems better. Discussed with the company laundry worker. Total positive 7.7 L positive fluid balance. Urine output about 450 mL. Urine electrolytes ordered. 07/14: BUNs/creatinine 36/1.83. Discussed with the company laundry worker. Encouraged IV fluid. Kidney function gradually improving. Avoid nephrotoxic medications. Anion gap normal, normal anion gap metabolic acidosis. Mild hypokalemia potassium getting replaced. -07/15: Slightly worse today, encourage oral intake, nephrology following -07/16: Worsening in slightly, discussed with nephrology, it is felt given patient's poor p.o. intake and receiving dye earlier in her hospital stay that this combination may have led to her worsening kidney function, patient advance to full's, encourage p.o. and will recheck tomorrow, no present indication for CRRT. -07/17: Slightly worse today, patient received some gentle IV fluids, assess for improvement tomorrow -07/18: Slightly worsened again today, had Govea taken out yesterday and has not urinated but still does not have significant amount on bladder scan, if still not urinating well straight cath. Encouraged to increase p.o. intake by nephrology, discussed with nephrology -07/19: Has been relatively stable today, continue to encourage p.o. intake -07/20: Similar to previous, possibly slightly #GERD -Continue PPI #afib -Patient reports chronic A-fib but has had multiple GI bleeds most recently in February so has been taken off of all anticoagulation -She is undergoing evaluation for Watchman which is the ultimate goal patient is still in A-fib. -07/15: If further tachycardia may need rate control -07/16: Patient seems to primarily be tachycardic when she gets up and moves around, suspect this is physiologic and largely due to deconditioning and possibly with a component of being intravascularly down, patient's diet advanced today #pulmonary HTN: She was started in October 2022 on treprostinil for pulmonary hypertension by Dr. Nelson and dose has gradually been increased. Patient on treprostinil 4.5 mg tablet 3 times a day an additional 0.125 mg on every Saturday until final goal is achieved. Currently it is on hold. I called Dr. Nelson phone and left a voicemail to call back. 07/[address] Nelson yesterday and today but did not call back. Left a voice message 07/13: Discussed with our surgical oncologist, Dr. Cartagena. Cannot discontinue treprostinil as patient can have rebound pulmonary hypertension with risk of cardiac arrest. 07/14: Patient has diarrhea of 4-5 bowel movements since the beginning of the starting treprostinil. -07/15: will need to follow-up with her surgical oncologist #Chronic anemia -Does not appear to be acutely bleeding 07/13: Hemoglobin slight drop to 8.9 from baseline around 10.2. Monitor CBC. Patient had recent iron work-up on April 2023 which shows iron 48, TIBC low normal at 268 iron saturation 18% and ferritin 197 suggestive of inflammatory anemia/anemia of chronic disease. 07/14: H&H 8.8/29%. Platelet count 287,000. #Morbid obesity -BMI 49.4 kg/m? -Complicates treatment, prognosis, outcomes -Recommend weight loss and lifestyle changes #DVT ppx: Lovenox subcu Charges/Coding Visit Charges Inpatient E&M: 36170 Subs Hosp L2
[2023-07-20 16:50] VITALS: BP 147/52; PULSE 87; RESP 20; TEMP 36.6; O2SAT 99
[2023-07-20] MEDS: Loperamide 2 MG Capsule 4 MG PO (17:22)
[2023-07-20] MEDS: Pramipexole Di-HCl 0.125 MG Tablet PO (21:44)
[2023-07-20 21:48] VITALS: BP 148/48; PULSE 88; RESP 15; TEMP 36.3; O2SAT 100
[2023-07-21 03:36] VITALS: BP 145/50; PULSE 82; RESP 18; TEMP 36.6; O2SAT 96
[2023-07-21 03:44] VITALS: BMI 50.4
[2023-07-21] MEDS: Loperamide 2 MG Capsule PO (05:49)
[2023-07-21] MEDS: SILDENAFIL CITRATE 20 MG TABLET PO ×2 (05:51→13:43)
[2023-07-21 07:20] LABS: Absolute Lymphocyte Count 0.58 X10^3/uL (0.83-4.51); Basophil# 0.03 X10^3/uL; Basophil% 0.3 % (0-1); Eosinophil# 0.19 X10^3/uL; Eosinophils% 1.8 % (0-5); Hematocrit 24.9 % (37-47); Hemoglobin 7.4 g/dL (12.0-15.0); Lymphocyte # 0.58 X10^3/ul (0.83-4.51); Lymphocyte % 5.6 % (19-41); Mean Corp Hgb Conc 29.7 g/dL (32-36); Mean Corpuscular Hgb 28.2 pg (27.0-32.0); Mean Platelet Vol. 11.7 fl (6.2-12.0); Monocyte# 0.42 X10^3/uL; NRBC Flagged by Analyzer 0 % (0-5); Neutrophil # 8.99 X10^3/uL (2.7-7.7); Neutrophil % 86.3 % (47-70); POSITIVE DIFFERENTIAL YES; Platelet Count 142 K/mm3 (150-450); RBC Distribution Width CV 14.7 % (11.6-14.6); RBC Distribution Width SD 50.4 fl (35.1-43.9); Red Blood Count 2.62 M/mm3 (4.2-5.4); White Blood Count 10.4 K/mm3 (4.4-11.0)
[2023-07-21 07:34] VITALS: O2SAT 97
[2023-07-21 08:02] VITALS: BP 153/50; PULSE 91; RESP 16; TEMP 36.8; O2SAT 97
[2023-07-21 08:08] LABS: ALB/GLOB Ratio 0.5 RATIO (0.9-2.4); AST(SGOT) 16 U/L (15-37); Alanine Aminotransfer ALT/SGPT 19 U/L (13-56); Albumin, Serum 1.9 g/dL (3.2-5.0); Alkaline Phosphatase 226 U/L (45-117); Anion Gap 7 (5-15); BUN 39 mg/dL (7-18); Calcium,Total 8.7 mg/dL (8.5-10.1); Chloride 117 mmol/L (98-107); EST Glomerular Filtration Rate 22 mL/min (>60); Est Glom Filt Rate - Afr Amer 26 mL/min (>60); Estimated Creatinine Clearance 18.26 ml/min; Globulin 3.7 g/dL (2.2-4.2); Glucose 102 mg/dL (74-106); Lipase 110 U/L (13-75); Potassium 3.5 mmol/L (3.5-5.1); Protein, Total 5.6 g/dL (6.4-8.2); Sodium Level 142 mmol/L (136-145)
[2023-07-21] MEDS: Menthol/Lanolin/Calamine/Znox 113 GM Tube 1 APPLIC TOPICAL (08:09)
[2023-07-21] MEDS: Ensure Plus High Protein 120 ML LIQUID PO ×2 (08:09→12:15)
[2023-07-21] MEDS: Pantoprazole Sodium 40 MG Tablet PO (08:10)
[2023-07-21] MEDS: Sodium Bicarbonate 650 MG Tablet PO (08:10)
[2023-07-21] MEDS: Enoxaparin 30 MG/0.3 ML Syringe SC (08:10)
[2023-07-21 08:28] LABS: Differential Indicated SCAN CRITERIA MET
[2023-07-21 11:30] LABS: Differential Comment SCANNED
[2023-07-21 13:35] VITALS: BP 158/48; PULSE 94; RESP 18; TEMP 36.7; O2SAT 96
--- NOTE | 2023-07-21 14:42 | DCINST_ITS ---
Discharge Instructions Follow Up Care Test Results: Test results from this visit will be discussed in further detail at your follow- up appointment, if applicable. Discharge Plan Admission Admit Date/Time: 07/09/23 14:33 Primary Reason for Your Visit: Pancreatitis Attending Provider: Vannessa Justin Primary Care Provider: Chiquis Santana Consulting Providers: Vannessa Justin; Bo Madrid; Carlos Peacock; Pauly Robertson; Amanuel Lynne Instructions Patient Instructions: Pancreatitis Acute Dc Additional Instructions / Restrictions: DISCHARGE INSTRUCTIONS PLEASE READ *Please take this with you to your next doctors appointment* -Recommend drinking protein supplement 3 times daily -Recommend beginning to advance diet in 1 to 2 days if you continue to be pain- free -You will need to follow-up with nephrology upon discharge, they will contact you to get an appointment scheduled. If you do not hear from the office in 2 business days please call to inquire about scheduling. Your labs will be repeated through the nephrology office -With your kidneys you were lisinopril has been held and you have been started on sodium bicarbonate -Weigh yourself every day. A sudden weight gain can mean you are retaining fluid. Weigh yourself at the same time of day and in the same kind of clothes. Ideally, weigh yourself first thing in the morning after you empty your bladder, but before you eat breakfast. -Please call your physician if your weight goes up by more than 2 pounds in 1 day or 5 pounds in 1 week. This can be a sign that you are retaining more fluid than you should be. -Recommend decrease dose of ropinirole due to your kidney function -Continue your pulmonary hypertension medication. Please call your revenue accounting manager upon discharge to schedule a follow up for continuity of care -Since infectious causes of your diarrhea were ruled out loperamide has been sent in to your pharmacy you can take this sparingly as needed for di arrhea/multiple loose stools, 14 capsules will be sent into your pharmacy -Please call your primary care provider's office upon discharge to schedule a hospital follow up within 1 week. -For any concerning signs or symptoms please call 911 or proceed to the nearest emergency department Discharge Orders/Prescriptions Prescriptions: New sodium bicarbonate 650 mg Tablet 650 mg PO BID 30 Days Qty: 60 0RF loperamide 2 mg Capsule 2 mg PO Q4H PRN PRN (Reason: Diarrhea) Qty: 14 0RF Continued magnesium 250 mg tablet 250 mg PO DAILY ferrous sulfate [Melissa-Time] 325 mg (65 mg iron) tablet 325 mg PO BID cyanocobalamin (vitamin B-12) 2,500 mcg lozenge 2,500 mcg sublingual QODAY ascorbic acid (vitamin C) 500 mg capsule 500 mg PO DAILY Orenitram 0.125 mg tablet extended release 0.125 mg PO SA Patient Comments: TAKE ONE 4.5MG TABLET BY MOUTH THREE TIMES A DAY. TAKE AN ADDITIONAL 0.125MG TABLET ON EVERY SATURDAY UNTIL A FINAL GOAL DOSE OF 5MG IS ACHIEVED. Rx Instructions: must administer with a meal/food aspirin [Adult Aspirin Regimen] 81 mg tablet,delayed release (DR/EC) 81 mg PO DAILY Hold Instructions: MD Ordered pantoprazole 40 mg tablet,delayed release (DR/EC) 40 mg PO DAILY sildenafil (pulm.hypertension) 20 MG tablet 20 mg PO TID Orenitram 1 mg tablet extended release 4.5 mg PO TID Patient Comments: TAKE ONE 4.5MG TABLET BY MOUTH THREE TIMES A DAY. TAKE AN ADDITIONAL 0.125MG TABLET ON EVERY SATURDAY UNTIL A FINAL GOAL DOSE OF 5MG IS ACHIEVED. amlodipine 10 mg tablet 10 mg PO DAILY Qty: 90 3RF Changed ropinirole 0.25 MG tablet 0.125 mg PO QHS Qty: 30 0RF Discontinued lisinopril 5 mg tablet 5 mg PO DAILY Referrals / Follow Up: Soraida Roldan MD [Med Staff - Consulting] - (You will need to follow- up with nephrology upon discharge, they will contact you to get an appointment scheduled. If you do not hear from the office in 2 business days please call to inquire about scheduling. Your labs will be repeated through the nephrology office) Chiquis Santana NP-C [Primary Care Provider] - Within 1 Week Disposition Disposition (needs filled in before D/C Order can be placed): Home Health Service
--- NOTE | 2023-07-21 14:59 | PCM.DC.SUM ---
Providers Date of Admission: 07/09/23 Date of Discharge: 07/21/23 Primary Care Physician: ROSALIND Johnson Consultations 07/09/23 15:42 Consult: General Surgery Routine Consulting Provider: Bo Madrid Reason for Consult: ?gallstone pancreatitis EMERGENT Consult: No Notified: Yes Date Notified: 07/09/23 Time Notified: 15:07 Method of Notification: ED Physician Initiated Consult: Infectious Disease Routine Consulting Provider: Carlos Peacock Reason for Consult: recent discitis still on abx EMERGENT Consult: No Notified: Yes Date Notified: 07/09/23 Time Notified: 16:36 Method of Notification: Text Consult: [employer] / Pulmonary Medicine Routine Consulting Provider: Pulmonary Medicine holly Seagrove Reason for Consult: hypoxia, Left sided effusion, ICU admission EMERGENT Consult: No Notified: Yes Date Notified: 07/09/23 Time Notified: 15:08 Method of Notification: Verbal 07/12/23 09:27 Consult: Nephrology Routine Consulting Provider: Pauly Robertson Reason for Consult: LUIS ALBERTO on CKD 3 EMERGENT Consult: No Notified: Yes Date Notified: 07/12/23 Time Notified: 09:27 Method of Notification: Text Reason For Visit: HYPOXIA, ACUTE PANCREATITIS Diagnosis Discharge Diagnosis (1) Acute pancreatitis: Status: Acute Code(s): K85.90 - Acute pancreatitis without necrosis or infection, unspecified Qualifiers: Pancreatitis type: drug induced Acute pancreatitis complication: no infection or necrosis Qualified Code(s): K85.30 - Drug induced acute pancreatitis without necrosis or infection (2) Acute hypoxemic respiratory failure: Status: Acute Code(s): J96.01 - Acute respiratory failure with hypoxia (3) Chronic diastolic (congestive) heart failure: Status: Chronic Code(s): I50.32 - Chronic diastolic (congestive) heart failure (4) Essential (primary) hypertension: Status: Chronic Code(s): I10 - Essential (primary) hypertension (5) H/O aortic valve replacement: Status: Chronic Code(s): Z95.2 - Presence of prosthetic heart valve (6) Longstanding persistent atrial fibrillation: Status: Chronic Code(s): I48.11 - Longstanding persistent atrial fibrillation Plan #Acute pancreatitis likely 2/2 abx #Recent discitis #Acute hypoxia/Hx chronic HFpEF per documentation/Hx AV bioprosthetic replacement/AARTI with CPAP #LUIS ALBERTO on CKD stage IIIb #GERD #afib #pulmonary HTN #Chronic anemia #Morbid obesity Medications at Discharge Home Medications sildenafil (pulm.hypertension) 20 mg tablet 20 mg PO TID PULMONARY HTN 11/18/17 magnesium 250 mg tablet 250 mg PO DAILY SUPPLEMENT 10/09/18 ferrous sulfate 325 mg (65 mg iron) tablet (Melissa-Time) 325 mg PO BID SUPPLEMENT 04/14/19 ascorbic acid (vitamin C) 500 mg capsule 500 mg PO DAILY SUPPLEMENT 05/10/20 cyanocobalamin (vitamin B-12) 2,500 mcg sublingual lozenge 2,500 mcg sublingual QODAY SUPPLEMENT 05/10/20 pantoprazole 40 mg tablet,delayed release 40 mg PO DAILY ACID REFLUX 03/06/21 amlodipine 10 mg tablet 10 mg PO DAILY BLOOD PRESSURE #90 tabs 06/27/22 treprostinil diolamine 0.125 mg tablet,extended release (Orenitram) 0.125 mg PO SA PULMONARY HTN 04/09/23 aspirin 81 mg tablet,delayed release (Adult Aspirin Regimen) 81 mg PO DAILY 06/27/23 treprostinil diolamine 1 mg tablet,extended release (Orenitram) 4.5 mg PO TID PULMONARY HTN 07/09/23 loperamide 2 mg capsule 2 mg PO Q4H PRN PRN Diarrhea #14 caps 07/21/23 ropinirole 0.25 mg tablet 0.125 mg (1/2 x 0.25 mg) PO QHS RESTLESS LEGS #30 tabs 07/21/23 sodium bicarbonate 650 mg tablet 650 mg PO BID 30 days #60 tabs 07/21/23 Hospital Course Summary of Care Provided Minutes Spent on Discharge: 35 Hospital Course: KAMI ROLLE, is a 78-year-old female history of CKD stage III, hx recurrent GIBs, hypertension, chronic diastolic heart failure, A-fib not on AC d/t GIBs, type 2 diabetes mellitus, recent discitis on Vanc and Rocephin at the infusion center who presented to [facility] 07/09/2023 from the infusion center due to right-sided abdominal pain with dry heaves. She received her doses of vancomycin and Rocephin (for discitis) prior to arrival, blood pressure at the infusion center was 89/43 when she was sent to ED for evaluation. In ED she was noted to be normotensive and had AST 125 with normal ALT and alk phos slightly elevated 151 but a lipase greater than 5000. She had CT in ED which demonstrated multiple gallstones with gallbladder wall thickening and enhancement with pericholecystic fluid suggesting cholecystitis as well as peripancreatic inflammatory stranding and fluid around the pancreatic head concerning for superimposed pancreatitis as well as a left pleural effusion. Surgeon was contacted in the ED and concerned that this was primarily pancreatic in nature and not a primary cholecystitis and recommended treating pancreatitis. She was started on IV fluids and ID recommended continuing Vanco and changing Rocephin to Zosyn. In ED O2 sats worsened and pt placed on 6L NC, ABG obtained which showed PO2 of 64 with an O2 sat of 92% and PCO2 33.7 and she was transitioned to a venti mask. Hospitalist contacted for admission. Patient had a very slow recovery, had a repeat CT which was relatively unchanged and it was discussed with surgeon and it was not felt that the pancreatitis was secondary to gallbladder so patient treated strictly as pancreatitis. She advanced up to fulls and is endorsed she was okay for DC on fulls and advance as tolerated as long as there is no pain. Patient's respiratory status improved back towards baseline and still some shortness of breath on exertion but suspect this is in part due to deconditioning. Hospital course also complicated by LUIS ALBERTO and CKD and nephrology involved, ultimately creatinine stabilized and it was advised she be discharged without any diuretics and on sodium bicarb and follow-up with nephro. Initial plan was for patient to go to SNF however the preferred SNF did not accept patient due to her expensive home medication so ultimately patient and family decided she would want to go home. Discussed risks and benefits and provided patient with prescription for DME like bedside commode. On day of discharge patient had stabilized and no further inpatient need for hospitalization, suspect patient is high risk of readmission due to her deconditioning and protracted hospital course however patient not agreeable to go to SNF and given no further need for acute inpatient hospitalization patient discharged home with . Discharge instructions as follows: -Recommend drinking protein supplement 3 times daily -Recommend beginning to advance diet in 1 to 2 days if you continue to be pain-free -You will need to follow-up with nephrology upon discharge, they will contact you to get an appointment scheduled. If you do not hear from the office in 2 business days please call to inquire about scheduling. Your labs will be repeated through the nephrology office -With your kidneys you were lisinopril has been held and you have been started on sodium bicarbonate -Weigh yourself every day. A sudden weight gain can mean you are retaining fluid. Weigh yourself at the same time of day and in the same kind of clothes. Ideally, weigh yourself first thing in the morning after you empty your bladder, but before you eat breakfast. -Please call your physician if your weight goes up by more than 2 pounds in 1 day or 5 pounds in 1 week. This can be a sign that you are retaining more fluid than you should be. -Recommend decrease dose of ropinirole due to your kidney function -Continue your pulmonary hypertension medication. Please call your director enterprise sales upon discharge to schedule a follow up for continuity of care -Since infectious causes of your diarrhea were ruled out loperamide has been sent in to your pharmacy you can take this sparingly as needed for diarrhea/multiple loose stools, 14 capsules will be sent into your pharmacy -Please call your primary care provider's office upon discharge to schedule a hospital follow up within 1 week. -For any concerning signs or symptoms please call 911 or proceed to the nearest emergency department Physical Exam Narrative General: Alert, oriented, no acute distress HEENT: Atraumatic, normocephalic Eyes: Anicteric, normal conjunctiva, extraocular movements grossly intact Neck: Supple Respiratory: No rhonchi or wheezes Cardiovascular: Regular rate GI: Nontender today without rebound, guarding, rigidity Extremities: trace LE pitting edema Musculoskeletal: Moving all extremities Neuro: No overt focal neurological deficits Skin: Some chronic lower extremity changes Psych: Cooperative Weight / BMI Weight Weight: 141.8 kg Body Mass Index (BMI) 50.4 ABG / Lab / Microbiology Data 07/21/23 06:32 07/21/23 06:32 Laboratory: Laboratory Results - last 24 hr 07/21/23 06:32: WBC 10.4, RBC 2.62 L, Hgb 7.4 L, Hct 24.9 L, MCV 95.0, MCH 28.2, MCHC 29.7 L, RDW Std Deviation 50.4 H, RDW Coeff of Fariba 14.7 H, Plt Count 142 L, MPV 11.7, Immature Gran % (Auto) 2.000 H, Neut % (Auto) 86.3 H, Lymph % (Auto) 5.6 L, [place] % (Auto) 4.0, Eos % (Auto) 1.8, Baso % (Auto) 0.3, Absolute Neuts (auto) 9.0 H, Absolute Lymphs (auto) 0.58 L, Nucleated RBC % 0, Differential Comment SCANNED, Sodium 142, Potassium 3.5, Chloride 117 H, Carbon Dioxide 18.0 L, Anion Gap 7, BUN 39 H, Creatinine 2.30 H, Estim Creat Clear Calc 18.26, Est GFR (MDRD) Af Amer 26 L, Est GFR (MDRD) Non-Af 22 L, BUN/Creatinine Ratio 17.0, Glucose 102, Calcium 8.7, Total Bilirubin 0.30, AST 16, ALT 19, Alkaline Phosphatase 226 H, Total Protein 5.6 L, Albumin 1.9 L, Globulin 3.7, Albumin/Globulin Ratio 0.5 L, Lipase 110 H Microbiology: Microbiology 07/20/23 09:00 Stool Enteric Bacteriology - Final 07/20/23 09:00 Stool C. difficile DNA Amplification - Final 07/13/23 15:00 Urine, Midstream Urine Culture - Final Melissa albicans 07/09/23 14:05 Blood Culture (Wb) - Port Blood Culture - Final No growth in 5 days. 07/09/23 13:20 Blood Culture (Wb) - Port Blood Culture - Final No growth in 5 days. 07/13/23 16:29 Stool C. difficile DNA Amplification - Final D/C Instructions Discharge Diet: Light diet - advance as tolerated Meaningful Use Info Meaningful Use Diagnoses (Choose all that apply): None applicable Discharge Plan Admission Admit Date/Time: 07/09/23 14:33 Primary Reason for Your Visit: Pancreatitis Attending Provider: Vannessa Justin Primary Care Provider: Chiquis Santana Consulting Providers: Vannessa Justin; Bo Madrid; Carlos Peacock; Pauly Robertson; Amanuel Lynne Instructions Patient Instructions: Pancreatitis Acute Dc Additional Instructions / Restrictions: DISCHARGE INSTRUCTIONS PLEASE READ *Please take this with you to your next doctors appointment* -Recommend drinking protein supplement 3 times daily -Recommend beginning to advance diet in 1 to 2 days if you continue to be pain-free -You will need to follow-up with nephrology upon discharge, they will contact you to get an appointment scheduled. If you do not hear from the office in 2 business days please call to inquire about scheduling. Your labs will be repeated through the nephrology office -With your kidneys you were lisinopril has been held and you have been started on sodium bicarbonate -Weigh yourself every day. A sudden weight gain can mean you are retaining fluid. Weigh yourself at the same time of day and in the same kind of clothes. Ideally, weigh yourself first thing in the morning after you empty your bladder, but before you eat breakfast. -Please call your physician if your weight goes up by more than 2 pounds in 1 day or 5 pounds in 1 week. This can be a sign that you are retaining more fluid than you should be. -Recommend decrease dose of ropinirole due to your kidney function -Continue your pulmonary hypertension medication. Please call your director enterprise sales upon discharge to schedule a follow up for continuity of care -Since infectious causes of your diarrhea were ruled out loperamide has been sent in to your pharmacy you can take this sparingly as needed for diarrhea/multiple loose stools, 14 capsules will be sent into your pharmacy -Please call your primary care provider's office upon discharge to schedule a hospital follow up within 1 week. -For any concerning signs or symptoms please call 911 or proceed to the nearest emergency department Discharge Orders/Prescriptions Prescriptions: New sodium bicarbonate 650 mg Tablet 650 mg PO BID 30 Days Qty: 60 0RF loperamide 2 mg Capsule 2 mg PO Q4H PRN PRN (Reason: Diarrhea) Qty: 14 0RF Continued magnesium 250 mg tablet 250 mg PO DAILY ferrous sulfate [Melissa-Time] 325 mg (65 mg iron) tablet 325 mg PO BID cyanocobalamin (vitamin B-12) 2,500 mcg lozenge 2,500 mcg sublingual QODAY ascorbic acid (vitamin C) 500 mg capsule 500 mg PO DAILY Orenitram 0.125 mg tablet extended release 0.125 mg PO SA Patient Comments: TAKE ONE 4.5MG TABLET BY MOUTH THREE TIMES A DAY. TAKE AN ADDITIONAL 0.125MG TABLET ON EVERY SATURDAY UNTIL A FINAL GOAL DOSE OF 5MG IS ACHIEVED. Rx Instructions: must administer with a meal/food aspirin [Adult Aspirin Regimen] 81 mg tablet,delayed release (DR/EC) 81 mg PO DAILY Hold Instructions: MD Ordered pantoprazole 40 mg tablet,delayed release (DR/EC) 40 mg PO DAILY sildenafil (pulm.hypertension) 20 MG tablet 20 mg PO TID Orenitram 1 mg tablet extended release 4.5 mg PO TID Patient Comments: TAKE ONE 4.5MG TABLET BY MOUTH THREE TIMES A DAY. TAKE AN ADDITIONAL 0.125MG TABLET ON EVERY SATURDAY UNTIL A FINAL GOAL DOSE OF 5MG IS ACHIEVED. amlodipine 10 mg tablet 10 mg PO DAILY Qty: 90 3RF Changed ropinirole 0.25 MG tablet 0.125 mg PO QHS Qty: 30 0RF Discontinued lisinopril 5 mg tablet 5 mg PO DAILY Referrals / Follow Up: Soraida Roldan MD [Med Staff - Consulting] - (You will need to follow-up with nephrology upon discharge, they will contact you to get an appointment scheduled. If you do not hear from the office in 2 business days please call to inquire about scheduling. Your labs will be repeated through the nephrology office) Chiquis Santana NP-C [Primary Care Provider] - Within 1 Week Disposition Disposition (needs filled in before D/C Order can be placed): Home Health Service Charges/Coding Visit Charges Inpatient E&M: 42071 Disch Hosp >30min
[2023-07-21 15:38] VITALS: O2SAT 89; O2SAT 92; O2SAT 93
[2023-07-21] MEDS: 0.9% Saline Lock 10 ML Syringe IV (17:17)
--- NOTE | 2023-07-22 14:00 | CASEMGMT ---
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 Addendum entered by James Jean 07/22/23 16:51: LELE BEGUM placed call to pt at this time. She states did get BSC from [facility] yesterday, but it was not wide enough, so went to [facility] today and got another one using the script for BSC and to have it billed through pt's insurance. LELE BEGUM placed call to Ulda @ [facility]. She was made aware of physician supporting documentation in [facility]. Per Kim Brewster [facility] has accepted pt and pt is aware. See documentation under LELE BEGUM discharge call intervention. Original Note: LELE BEGUM NOTE: Per Maral @ [facility], they are unable to accept pt. Narcisa, systems requirements planner, made aware and to f/u with pt/ re: other [facility] preferences and to continue to assist pt w/getting HHC. This LELE BEGUM faxed physician documentation to support need of BSC to [facility]. Call to Estefanía @ [employer] and she was made aware that was going to be picking up BSC yesterday, was planning on paying for it [id number], and may be calling in to inquire about getting reimbursed through [facility]. Bethanie RUIZ RN, CM
--- NOTE | 2023-07-22 14:51 | CASEMGMT ---
Discharge Planning Patient updated that [facility] has declined her referral. Atif had no other preferances and was fine with referrals sent to [facility] that service her are. Referral sent via [facility] to [facility], [facility], [facility], [facility], and . Narcisa Delgado, Discharge Planning Asst.
--- NOTE | 2023-07-22 15:58 | CASEMGMT ---
Discharge Planning Patient has been accepted by Kim [facility]ANG. Called placed to patient and she would like to proceed. Tentative SOC is 07/24/23. RN CM updated. Narcisa Delgado, Discharge Planning Asst.
== END 2023-07-21 17:36 | disposition home health service (06) | DRG 438 ==
LOC: ED 13:33 → ICU 15:04 → PCU 07-15 07:17
PROVIDERS: Internal Medicine; Internal Medicine Critical Care Medicine; Internal Medicine Nephrology; Surgery; Admitting Provider Internal Medicine; Emergency Provider Emergency Medicine; PCP Nurse Practitioner Family; Visit Provider Internal Medicine
DX: K85.30 Drug induced acute pancreatitis without necrosis or infection (principal); J96.01 Acute respiratory failure with hypoxia; E87.21 Acute metabolic acidosis; I13.0 Hypertensive heart and chronic kidney disease with heart failure and stage 1 through stage 4 chronic kidney disease, or unspecified chronic kidney disease; I50.32 Chronic diastolic (congestive) heart failure; Z68.43 Body mass index [BMI] 50.0-59.9, adult; I48.11 Longstanding persistent atrial fibrillation; N17.9 Acute kidney failure, unspecified; M86.9 Osteomyelitis, unspecified; R18.8 Other ascites; I27.21 Secondary pulmonary arterial hypertension; D63.1 Anemia in chronic kidney disease; E11.22 Type 2 diabetes mellitus with diabetic chronic kidney disease; N18.31 Chronic kidney disease, stage 3a; E66.01 Morbid (severe) obesity due to excess calories; D50.0 Iron deficiency anemia secondary to blood loss (chronic); I25.10 Atherosclerotic heart disease of native coro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 pectoris; E78.5 Hyperlipidemia, unspecified; K21.9 Gastro-esophageal reflux disease without esophagitis; G47.33 Obstructive sleep apnea (adult) (pediatric); M46.46 Discitis, unspecified, lumbar region; E87.6 Hypokalemia; Z95.3 Presence of xenogenic heart valve; Z90.89 Acquired absence of other organs; Z79.82 Long term (current) use of aspirin; Z79.899 Other long term (current) drug therapy; T36.1X5A Adverse effect of cephalosporins and other beta-lactam antibiotics, initial encounter
CPT/HCPCS: 36415; 36591; 36600; 51702; 71045; 71046; 74018; 74176; 74177; 78226; 80048; 80053; 80061; 80069; 80076; 80202; 81001; 82150; 82436; 82570; 82607; 82746; 82803; 83010; 83605; 83615; 83690; 83735; 83935; 84100; 84133; 84145; 84156; 84300; 85025; 85027; 85045; 85652; 86140; 86880; 87040; 87086; 87088; 87493; 87506; 93005; 94002; 94003; 94762; 96368; 97110; 97162; 97166; 97530; 97535; 99252; 99285; A9537; J7030; J7040; J7050; J7120; Q9967; A4216; G0463; J0696; J1940; J2405

== ENCOUNTER 2023-07-27 10:04 | Inpatient (IN) | payer MEDICARE, OTHER, SELFPAY ==
[2023-07-27] VITALS (8 sets, daily range): BP systolic 136–186; BP diastolic 50–76; PULSE 80–105; RESP 10–22; TEMP 36.4–36.8; O2SAT 89–100; BMI 51.2; BMI 49.8
--- NOTE | 2023-07-27 10:22 | RAD_ITS ---
STUDY: X-RAY CHEST REASON FOR EXAM: Female, 78 years old. Dyspnea TECHNIQUE: Frontal view of the chest COMPARISON: 07/13/2023 FINDINGS: Again noted is a right-sided port with its tip in the superior vena cava. There is no pneumothorax. There are bilateral interstitial opacities which may be due to infection or edema. There are no pleural effusions. The heart is enlarged, but stable. Again noted is a prosthetic aortic valve. The visualized osseous structures are within normal limits. RAD/Chest 1 View (Portable) IMPRESSION: Bilateral interstitial opacities which may be due to infection or edema. Electronically Signed: Adolfo Ansari MD at 10:51 EST ,
--- NOTE | 2023-07-27 10:23 | EKG12_ITS ---
Test Reason : SOB Blood Pressure : / mmHG Vent. Rate : 101 BPM Atrial Rate : 000 BPM P-R Int : 000 ms QRS Dur : 076 ms QT Int : 328 ms P-R-T Axes : 000 024 -53 degrees QTc Int : 425 ms Atrial fibrillation with rapid ventricular response Low voltage QRS ST & T wave abnormality, consider anterolateral ischemia Abnormal ECG Confirmed by DAMIEN BALDWIN, JAMIE ([id number]), market editor RENATA CORTES ([id number]) on 07/30/2023 6:18:31 AM Referred By: Aaron Hernandez Confirmed By:AUGUSTINA QUEZADA MD
--- NOTE | 2023-07-27 10:25 | EDS_ITS ---
HPI History of Present Illness Chief Complaint: Shortness of Breath Detail of Chief Complaint: Shortness of breath and hypoxia Informant: patient Onset/Context/Timing Onset: Yesterday Context: gradual and rest Timing: Continuous Quality: Positive for Dyspnea on exertion and Wheezing; Negative for PND Current Severity: Mild Maximum Severity: Severe Worsened by: Exertion (Minimal activity causes patient to be tachypneic and hypoxic.) and Coughing Relieved by: Nothing Associated Symptoms cough and clear sputum; Negative for rhinorrhea, post nasal drip, ear pain, fever, sore throat, chills, sweats, white sputum, yellow sputum or green sputum Chest Pain: Positive for None Narrative Narrative: Patient is an 78-year-old woman who was admitted in June for acute pancre atitis and also had acute cholecystitis with cholelithiasis. Patient was treated for the acute pancreatitis. It was the belief of the consultants that the acute cholecystitis was due to the significant acute pancreatitis and that the pancreatitis not due to gallstone pancreatitis. Patient was in the hospital for several weeks. She presents today because of cough, shortness of breath and was found to be hypoxic by visiting nurse. Patient has history of atrial fibrillation. She is no longer on anticoagulant because of recurrent GI bleeds. She does endorse dyspnea at rest, increased shortness of breath with minimal activity. She denies chest pain of any type including pleuritic. She does have slightly hoarse voice. She states the hoarse voice has been present since she was diagnosed with COVID when she was admitted to [facility] for discitis. She has also had a chronic cough since diagnosis with COVID. She denies headache, visual, ocular auditory symptoms. She reports mild congestion. She states this is chronic as well. She denies abdominal pain, black or maroon-colored stool. She denies frequency, urgency, hematuria or dysuria. Patient does have obstructive sleep apnea and has a CPAP machine. She states she has been using the CPAP machine during the day because of her shortness of breath. She is not on supplemental oxygen when she uses her CPAP machine. PE Risk Factors: Positive for Recent immobilization; Negative for Cancer, OCP + Smoking + > 35, Prior DVT or PE, Recent surgery or Recent travel Prior similar symptoms: No Recent Illness/Hospitalization: Yes [facility] Medical History Acute blood loss anemia (09/24/20) Anemia Anemia in chronic kidney disease (CKD) Anemia of chronic renal failure, stage 3 (moderate) Arthritis Bloody stool Chronic diastolic (congestive) heart failure Chronic GI bleeding Diverticulitis Essential (primary) hypertension Fatigue History of blood transfusion History of GI bleed History of pneumonia Hyperkalemia Hyperlipidemia Iron deficiency anemia Iron deficiency anemia due to chronic blood loss Knee pain Liver disease 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 Longstanding persistent atrial fibrillation Morbid obesity Non-ST elevation (NSTEMI) myocardial infarction (12/09/16) Nonobstructive atherosclerosis of coronary artery Nonrheumatic aortic (valve) stenosis Nonrheumatic mitral (valve) insufficiency Nonrheumatic tricuspid (valve) insufficiency Osteopenia Other secondary pulmonary hypertension Presence of IVC filter (09/2018) Sepsis secondary to UTI 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 Type 2 diabetes mellitus Home Medications sildenafil (pulm.hypertension) 20 mg tablet 20 mg PO TID PULMONARY HTN 11/18/17 [History Last Taken 07/09/23] magnesium 250 mg tablet 250 mg PO DAILY SUPPLEMENT 10/09/18 [History Last Taken 07/09/23] ferrous sulfate 325 mg (65 mg iron) tablet (Melissa-Time) 325 mg PO BID SUPPLEMENT 04/14/19 [History Last Taken 07/09/23] ascorbic acid (vitamin C) 500 mg capsule 500 mg PO DAILY SUPPLEMENT 05/10/20 [History Last Taken 07/09/23] cyanocobalamin (vitamin B-12) 2,500 mcg sublingual lozenge 2,500 mcg sublingual QODAY SUPPLEMENT 05/10/20 [History Last Taken 07/09/23] pantoprazole 40 mg tablet,delayed release 40 mg PO DAILY ACID REFLUX 03/06/21 [History Last Taken 07/08/23] amlodipine 10 mg tablet 10 mg PO DAILY BLOOD PRESSURE #90 tabs 06/27/22 [Rx Last Taken 07/09/23] aspirin 81 mg tablet,delayed release (Adult Aspirin Regimen) 81 mg PO DAILY 06/27/23 [History Last Taken Unknown] treprostinil diolamine 1 mg tablet,extended release (Orenitram) 4.5 mg PO TID PULMONARY HTN 07/09/23 [History Last Taken Unknown] loperamide 2 mg capsule 2 mg PO Q4H PRN PRN Diarrhea #14 caps 07/21/23 [Rx Last Taken Unknown] ropinirole 0.25 mg tablet 0.125 mg (1/2 x 0.25 mg) PO QHS RESTLESS LEGS #30 tabs 07/21/23 [Rx Last Taken 07/08/23] sodium bicarbonate 650 mg tablet 650 mg PO BID 30 days #60 tabs 07/21/23 [Rx Last Taken Unknown] Allergy/AdvReac Type Severity Reaction Status Date / Time pravastatin AdvReac Severe severe Verified 07/27/23 10:07 muscle and joint pain Family History Mother , age 83 Uterine cancer Hypertension Father , age 81 Heart disease Diabetes CAD (coronary artery disease) Hypertension Surgical History coil embolization of colonic artery H/O aortic valve replacement (09/15/18) History of appendectomy History of hysterectomy History of left heart catheterization (LHC) (04/10/17) History of root canal procedure Status post right foot surgery Social History household members: spouse housing: house Smoking Status: Never smoker alcohol intake: never substance use type: does not use caffeine: No what type of physical activity do you participate in: none divina/shinto: Mennonite seatbelt use: always do you feel safe at home: Yes ROS ROS ED Constitutional Constitutional ED: Denies chills, fever(s) or sweats Eyes Eyes: Denies blurry vision, change in vision or diplopia ENT ENT ED: Denies ear pain, rhinorrhea or sore throat Cardiovascular Cardiovascular: Denies chest pain, palpitations, paroxysmal nocturnal dyspnea or racing heartbeat Respiratory/Chest Respiratory/Chest: Reports cough, dyspnea, dyspnea on exertion and sputum; Denies paroxysmal nocturnal dyspnea Gastrointestinal Gastrointestinal: Denies abdominal pain, diarrhea, melena, nausea or vomiting Genitourinary Genitourinary ED: Denies dysuria, hematuria or urinary frequency Musculoskeletal Musculoskeletal: Denies arthralgias or myalgias Integumentary Denies rash Neurologic Neurologic: Denies paresthesias or weakness Psychiatric Psychiatric: Denies anxiety Endocrine Endocrinology: Reports cold intolerance Hematologic/Lymphatic Hematologic/Lymphatic: Denies easy bleeding or easy bruising EXAM Physical Exam Const Vital Signs: 07/27/23 10:05 07/27/23 10:08 07/27/23 10:42 Temperature 97.7 F L Temperature Source Temporal Pulse Rate 105 H 103 H Respiratory Rate 10 L 20 H Respiratory Effort Short of Breath Labored Respiratory Depth Shallow Respiratory Pattern Tachypnea Normal Blood Pressure 186/72 H Blood Pressure Mean 110 Pulse Ox 89 Oxygen Delivery Method Room Air Nasal Cannula Oxygen Flow Rate (L/min) 2 Positive well nourished, well developed and obese Constitutional Narrative: Patient has mild conversational dyspnea. Patient's respiratory rate is much greater than 10 times per minute. Patient was noted to be hypoxic on room air. This was at rest. General Appearance ED: well developed and pallor; Negative for NAD Nutritional Appearance: obese HEENT Reports dry mucous membranes HEENT Narrative: Head is normocephalic. Ears are normal. Posterior pharynx is unremarkable. atraumatic Mouth ED: Yes dry mucous membranes Mouth: dry mucous membranes Eyes PERRL and EOMs intact bilaterally General Eye ED: Yes pale conjunctiva; Negative for scleral icterus Neck no lymphadenopathy, supple, no meningeal signs and no JVD Neck Narrative: Trachea is midline. There is no inspiratory expiratory stridor. Resp No normal respiratory effort and No clear to auscultation bilaterally Auscultation: rales bilateral other (Lower third on the right and bases on the left.), wheezes expiratory wheezes, scattered wheezes and throughout and diminished lung sounds Cardio no murmurs Rate: tachycardic Rhythm: abnormal rhythm irregularly irregular GI non-tender, non-distended and no masses Back/Spine no CVA tenderness and normal to inspection Extremity General Extremety ED: Yes edema; Negative for tenderness General Extremity: edema Neuro oriented x3, CN's II-XII intact bilaterally and no sensory deficits noted Nikita Coma Scale: document GCS findings Spontaneous Obeys Commands Oriented 15 Psych mental status grossly normal Thought Process: normal thought process Skin no wounds General Skin Exam: pallor; Negative for jaundice Lesions: no lesions Rashes: no rashes MDM MDM MDM Narrative Medical decision making narrative: Differential diagnosis would include pulmonary embolus, congestive heart failure, and pneumonia. Will obtain EKG to rule out cardiac ischemia. CBC was obtained assess white count and rule out anemia since she appears pale. Comp etence metabolic panel to assess renal function, liver enzymes in light of history of cholelithiasis with cholecystitis. Need to evaluate for congestive heart failure since she has bilateral rales with edema and chronic A-fib. D- dimer was obtained. EKG to assess for any acute ischemic changes. Also a troponin was obtained. VBG was obtained because of history of obstructive sleep Bamate to assess acid-base status as well as CO2. With a normal D-dimer slightly elevated BNP and history of chronic congestive heart failure suspect patient's findings are due to can just of heart failure. Lasix was ordered. Hospitalist was paged for admission. History & Record Review Additional record(s) reviewed:: Prior inpatient record, Prior ED visit (ED note for admission in June for cholelithiasis/cholecystitis and acute pancreatitis) and Prior labs Lab Data Attestation: I reviewed the patient's lab results. Lab results narrative: Patient has anemia with an H&H of 7.6 and 25.0, which is baseline. There is a slight shift with 90% segs. White count is upper end of normal. D-dimer is less than 0.27. Comprehensive metabolic panel reveals an elevated BUN and creatinine of 31.88. Creatinine is slightly improved from baseline. Estimated GFR is 27. Glucose is elevated 146 with normal CO2 and anion gap. Hepatic profile is remarkable for an albumin of 2.4 which is elevated compared to prior labs. Labs: Laboratory Results - last 24 hr 07/27/23 11:40 WBC 10.0 RBC 2.68 L Hgb 7.6 L Hct 25.0 L MCV 93.3 MCH 28.4 MCHC 30.4 L RDW Std Deviation 53.3 H RDW Coeff of Fariba 16.0 H Plt Count 167 MPV 11.8 Immature Gran % (Auto) 0.800 Neut % (Auto) 89.8 H Lymph % (Auto) 5.4 L [place] % (Auto) 2.7 Eos % (Auto) 0.9 Baso % (Auto) 0.4 Absolute Neuts (auto) 9.0 H Absolute Lymphs (auto) 0.54 L Nucleated RBC % 0 Hypochromasia 1+ D-Dimer Quant (PE/DVT) < 0.27 L Sodium 143 Potassium 4.0 Chloride 117 H Carbon Dioxide 22.0 Anion Gap 4 L BUN 30 H Creatinine 1.88 H Estim Creat Clear Calc 22.34 Est GFR (MDRD) Af Amer 33 L Est GFR (MDRD) Non-Af 27 L BUN/Creatinine Ratio 16.0 Glucose 146 H Lactic Acid 0.6 Calcium 8.6 Total Bilirubin 0.30 AST 15 ALT 14 Alkaline Phosphatase 112 Troponin I High Sens 19 B-Natriuretic Peptide 134.9 H Total Protein 6.4 Albumin 2.4 L Globulin 4.0 Albumin/Globulin Ratio 0.6 L ABG Data ABG results: ABG 07/27/23 11:51 Specimen Type MERCEDES Sample Site Not entered O2 % 4.0 VBG pH 7.44 H VBG pO2 44 H VBG HCO3 20 L VBG Total CO2 21 L VBG O2 Sat (Calc) 82 H VBG Base Excess -4 L POC Mix VBG pCO2 Pt Tmp 29.3 L O2 Delivery Device Cannula Radiography Chest X-Ray - ED: 1 View and Read by ED Physician (Independent reviewed interpreted by me at 1043. Compared to 2 view film obtained July 13 there is increased expansion. There is persistent opacification right lower lobe. There is slight cephalization. There is also increased interstitial markings. This could represent congestive heart fail) Diagnostic Testing: Clinical Impression(s) from Imaging Studies Chest X-Ray 07/27/23 10:22 IMPRESSION: Bilateral interstitial opacities which may be due to infection or edema. Electronically Signed: Adoflo Ansari MD at 10:51 EST , Rhythm Strip Rhythm Strip: A-fib Rate: 106 Ectopy: None EKG Initial EKG: Attestation: I personally reviewed and interpreted this EKG as follows: Interpretation: Atrial Fibrillation (Rate is 101. QRS duration 76 ms. QT duration 328 ms. [place] is normal. There is evidence of low voltage. There is artifact noted which I believe the computer is interpreting as ischemia.) Management Discussion w/another healthcare provider: Hospitalist (Spoke with Dr. Eric Fontaine regarding admission. Patient be admitted to PCU full.) Discharge Plan Dx/Rx/DC Orders Clinical Impression: Acute hypoxemic respiratory failure, Morbid obesity, Essential (primary) hype rtension, Type 2 diabetes mellitus, Longstanding persistent atrial fibrillation, Nonobstructive atherosclerosis of coronary artery, Chronic kidney disease, stage 3b, Acute exacerbation of CHF (congestive heart failure), Obstructive sleep apnea Disposition Disposition: Acute Care Hospital [facility]
[2023-07-27] MEDS: Albuterol 2.5 MG/3 ML VIAL.NEB. INHALATION ×3 (10:29→10:30)
[2023-07-27 11:51] LABS: Absolute Lymphocyte Count 0.54 X10^3/uL (0.83-4.51); Basophil# 0.04 X10^3/uL; Basophil% 0.4 % (0-1); Eosinophil# 0.09 X10^3/uL; Eosinophils% 0.9 % (0-5); Hemoglobin 7.6 g/dL (12.0-15.0); Lymphocyte # 0.54 X10^3/ul (0.83-4.51); Lymphocyte % 5.4 % (19-41); Mean Corp Hgb Conc 30.4 g/dL (32-36); Mean Corpuscular Hgb 28.4 pg (27.0-32.0); Mean Corpuscular Volume 93.3 fL (81-99); Mean Platelet Vol. 11.8 fl (6.2-12.0); Monocyte# 0.27 X10^3/uL; Monocyte% 2.7 % (0-10); NRBC Flagged by Analyzer 0 % (0-5); Neutrophil # 8.96 X10^3/uL (2.7-7.7); Neutrophil % 89.8 % (47-70); POSITIVE DIFFERENTIAL YES; Platelet Count 167 K/mm3 (150-450); RBC Distribution Width SD 53.3 fl (35.1-43.9); Red Blood Count 2.68 M/mm3 (4.2-5.4)
[2023-07-27 11:54] LABS: Blood Gas Specimen Type VEN; O2 Delivery Device Cannula; SITE Not entered; VBG BASE EXCESS -4 mmol/L (-1.0-3.5); VBG Bicarbonate 20 mmol/L (22-26); VBG PO2 44 mmHg (25-40); VBG SO2 82 % (50-70); VBG TCO2 21 mmol/L (23-33); VBG pCO2 29.3 mmHg (41-51); VBG pH 7.44 (7.32-7.42)
[2023-07-27 11:55] LABS: Differential Indicated SCAN CRITERIA MET
[2023-07-27 12:05] LABS: D-Dimer Quantitative (DVT/PE) < 0.27 FEU/ug/m (0.27-0.49)
[2023-07-27 12:09] LABS: Hypochromasia 1+
[2023-07-27 12:11] LABS: ALB/GLOB Ratio 0.6 RATIO (0.9-2.4); AST(SGOT) 15 U/L (15-37); Alanine Aminotransfer ALT/SGPT 14 U/L (13-56); Albumin, Serum 2.4 g/dL (3.2-5.0); Alkaline Phosphatase 112 U/L (45-117); Anion Gap 4 (5-15); BUN 30 mg/dL (7-18); Calcium,Total 8.6 mg/dL (8.5-10.1); Chloride 117 mmol/L (98-107); Creatinine, Serum 1.88 mg/dL (0.55-1.02); EST Glomerular Filtration Rate 27 mL/min (>60); Est Glom Filt Rate - Afr Amer 33 mL/min (>60); Estimated Creatinine Clearance 22.34 ml/min; Glucose 146 mg/dL (74-106); Protein, Total 6.4 g/dL (6.4-8.2); Sodium Level 143 mmol/L (136-145); Troponin-I HS 19 pg/mL (3.0-54.0)
[2023-07-27 12:14] LABS: BNP,B-Type NATRIURETIC PEPTIDE 134.9 pg/mL (0-100)
[2023-07-27 12:15] LABS: Lactic Acid 0.6 mmol/L (0.4-1.9)
--- NOTE | 2023-07-27 13:09 | PCM.HP.STD ---
HPI - General General Date of Admission: 07/27/23 Date of Service: 07/27/23 Chief Complaint: Shortness of breath HPI Narrative KAMI ROLLE, is a 78 F who presents with multiple comorbidities with recent admission for acute pancreatitis discharged home on 07/20/2023 presented back to the emergency department with shortness of breath. Patient states shortness of breath has been progressing since being discharged. Patient also did notice some weight gain as well as swelling involving both lower extremities. On the morning of her admission her home health nurse measured patient's temperature which was reported to be 99 Fahrenheit. Patient however denied any subjective fever no chills. Presented to the emergency department subsequently imaging studies came back consistent with vascular congestion admitted to a monitored bed for further management [facility] Medical History Acute blood loss anemia (09/24/20) Anemia Anemia in chronic kidney disease (CKD) Anemia of chronic renal failure, stage 3 (moderate) Arthritis Bloody stool Chronic diastolic (congestive) heart failure Chronic GI bleeding Diverticulitis Essential (primary) hypertension Fatigue History of blood transfusion History of GI bleed History of pneumonia Hyperkalemia Hyperlipidemia Iron deficiency anemia Iron deficiency anemia due to chronic blood loss Knee pain 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 Longstanding persistent atrial fibrillation Morbid obesity Non-ST elevation (NSTEMI) myocardial infarction (12/09/16) Nonobstructive atherosclerosis of coronary artery Nonrheumatic aortic (valve) stenosis Nonrheumatic mitral (valve) insufficiency Nonrheumatic tricuspid (valve) insufficiency Osteopenia Other secondary pulmonary hypertension Presence of IVC filter (09/2018) Sepsis secondary to UTI 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 Type 2 diabetes mellitus Home Medications sildenafil (pulm.hypertension) 20 mg tablet 20 mg PO TID PULMONARY HTN 11/18/17 [History Last Taken 07/09/23] magnesium 250 mg tablet 250 mg PO DAILY SUPPLEMENT 10/09/18 [History Last Taken 07/09/23] ferrous sulfate 325 mg (65 mg iron) tablet (Melissa-Time) 325 mg PO BID SUPPLEMENT 04/14/19 [History Last Taken 07/09/23] ascorbic acid (vitamin C) 500 mg capsule 500 mg PO DAILY SUPPLEMENT 05/10/20 [History Last Taken 07/09/23] cyanocobalamin (vitamin B-12) 2,500 mcg sublingual lozenge 2,500 mcg sublingual QODAY SUPPLEMENT 05/10/20 [History Last Taken 07/09/23] pantoprazole 40 mg tablet,delayed release 40 mg PO DAILY ACID REFLUX 03/06/21 [History Last Taken 07/08/23] amlodipine 10 mg tablet 10 mg PO DAILY BLOOD PRESSURE #90 tabs 06/27/22 [Rx Last Taken 07/09/23] aspirin 81 mg tablet,delayed release (Adult Aspirin Regimen) 81 mg PO DAILY 06/27/23 [History Last Taken Unknown] treprostinil diolamine 1 mg tablet,extended release (Orenitram) 4.5 mg PO TID PULMONARY HTN 07/09/23 [History Last Taken Unknown] loperamide 2 mg capsule 2 mg PO Q4H PRN PRN Diarrhea #14 caps 07/21/23 [Rx Last Taken Unknown] ropinirole 0.25 mg tablet 0.125 mg (1/2 x 0.25 mg) PO QHS RESTLESS LEGS #30 tabs 07/21/23 [Rx Last Taken 07/08/23] sodium bicarbonate 650 mg tablet 650 mg PO BID 30 days #60 tabs 07/21/23 [Rx Last Taken Unknown] Allergy/AdvReac Type Severity Reaction Status Date / Time pravastatin AdvReac Severe severe Verified 07/27/23 10:07 muscle and joint pain Family History Mother , age 83 Uterine cancer Hypertension Father , age 81 Heart disease Diabetes CAD (coronary artery disease) Hypertension Surgical History coil embolization of colonic artery H/O aortic valve replacement (09/15/18) History of appendectomy History of hysterectomy History of left heart catheterization (LHC) (04/10/17) History of root canal procedure Status post right foot surgery Social History household members: spouse housing: house Smoking Status: Never smoker alcohol intake: never substance use type: does not use caffeine: No what type of physical activity do you participate in: none divina/cheondoism: Mennonite seatbelt use: always do you feel safe at home: Yes ROS ROS Narrative GENERAL: denies fever, chills, night sweats, weight loss, anorexia HEENT: denies headache, sinus congestion, or drainage, dysphagia RESPIRATORY: , shortness of breath, dyspnea on exertion CARDIAC: denies chest pain, palpitations, orthopnea, PND GASTROINTESTINAL: denies abdominal pain, nausea, vomiting, melena, GENITOURINARY: denies dysuria, urgency, frequency, heamaturia EXTREMITY: denies swelling MUSCULOSKELETAL: denies current joint pain or tenderness NEUROLOGIC: denies focal numbness, weakness, tingling HEMATOLOGIC: denies easy bruising and/or hemorrhage INTEGUMENT: denies rashes PSYCHIATRIC: denies suicidal or homicidal ideation Vital Signs Vital Signs Vital Signs: 07/27/23 10:05 07/27/23 10:08 07/27/23 10:42 Temperature 97.7 F L Temperature Source Temporal Pulse Rate 105 H 103 H Respiratory Rate 10 L 20 H Respiratory Effort Short of Breath Labored Respiratory Depth Shallow Respiratory Pattern Tachypnea Normal Blood Pressure 186/72 H Blood Pressure Mean 110 Pulse Ox 89 Oxygen Delivery Method Room Air Nasal Cannula Oxygen Flow Rate (L/min) 2 Weight Weight: 144 kg Body Mass Index (BMI) 51.2 Physical Exam Narrative GENERAL: cooperative HEENT: Atraumatic; normocephalic EYES; Anicteric, Normal Conjunctiva NECK; supple, normal thyroid, RESPIRATORY: Diminished to auscultation CARDIOVASCULAR: Regular S1 S2, GI: soft, normoactive bowel sounds, : No Renal angle tenderness; EXTREMITIES: edema, no clubbing, MUSCULOSKELETAL: no muscle wasting NEURO: Awake; no lateralizing signs. SKIN: No Rash PSYCH; Flat affect Results Lab / Micro Data 07/27/23 11:40 07/27/23 11:40 Labs: Laboratory Results - last 24 hr 07/27/23 11:40: WBC 10.0, RBC 2.68 L, Hgb 7.6 L, Hct 25.0 L, MCV 93.3, MCH 28.4, MCHC 30.4 L, RDW Std Deviation 53.3 H, RDW Coeff of Fariba 16.0 H, Plt Count 167, MPV 11.8, Immature Gran % (Auto) 0.800, Neut % (Auto) 89.8 H, Lymph % (Auto) 5.4 L, [place] % (Auto) 2.7, Eos % (Auto) 0.9, Baso % (Auto) 0.4, Absolute Neuts (auto) 9.0 H, Absolute Lymphs (auto) 0.54 L, Nucleated RBC % 0, Hypochromasia 1+, D-Dimer Quant (PE/DVT) < 0.27 L, Sodium 143, Potassium 4.0, Chloride 117 H, Carbon Dioxide 22.0, Anion Gap 4 L, BUN 30 H, Creatinine 1.88 H, Estim Creat Clear Calc 22.34, Est GFR (MDRD) Af Amer 33 L, Est GFR (MDRD) Non-Af 27 L, BUN/Creatinine Ratio 16.0, Glucose 146 H, Lactic Acid 0.6, Calcium 8.6, Total Bilirubin 0.30, AST 15, ALT 14, Alkaline Phosphatase 112, Troponin I High Sens 19, B-Natriuretic Peptide 134.9 H, Total Protein 6.4, Albumin 2.4 L, Globulin 4.0, Albumin/Globulin Ratio 0.6 L ABG Data ABG results: ABG 07/27/23 11:51 Specimen Type MERCEDES Sample Site Not entered O2 % 4.0 VBG pH 7.44 H VBG pO2 44 H VBG HCO3 20 L VBG Total CO2 21 L VBG O2 Sat (Calc) 82 H VBG Base Excess -4 L POC Mix VBG pCO2 Pt Tmp 29.3 L O2 Delivery Device Cannula Rhythm Strip Rhythm Strip: A-fib Rate: 106 Ectopy: None Imagaing Radiology Impression Chest X-Ray 07/27/23 10:22 IMPRESSION: Bilateral interstitial opacities which may be due to infection or edema. Electronically Signed: Adolfo Ansari MD at 10:51 EST , Assessment & Plan Assessment/Plan (1) Acute exacerbation of CHF (congestive heart failure): QUALIFIERS: Heart failure type: diastolic Qualified Code(s): I50.33 - Acute on chronic diastolic (congestive) heart failure PLAN: Plan Patient is an 78-year-old lady with multiple comorbidities including pulmonary hypertension, congestive heart failure with preserved ejection fraction, history of aortic valve replacement, morbid obesity with BMI of 51 presented with progressive shortness of breath 1. Acute on chronic congestive heart failure with preserved ejection fraction ? Most recent echo in February 2023 demonstrated EF of 75% with PASP of 70%. Patient has been admitted to monitored bed placed on strict input and output, fluid restriction, daily weights as well as IV diuretics 2. Pulmonary hypertension ? With PASP of 70. Patient is on sildenafil as well as Orenitram, both medications continued 3. Acute respiratory insufficiency ? Secondary to above patient placed on nasal cannula titrated to keep oxygen saturation greater than 90 4. Valvular heart disease ? With history of AV prosthetic valve replacement 5. Obstructive sleep apnea ? Consistent use of CPAP at night encouraged 6. Class III obesity with BMI of 51 ? Complicating care weight loss advised 7. GERD ? Patient is on PPI continue 8. Restless leg syndrome ? Patient is on ropinirole continue 9. Chronic kidney disease stage IIIb Patient is followed by nephrology as outpatient kidney function at baseline 10. Hypertension - Blood pressure controlled, home medications continued with dose adjustment as needed 11. Paroxysmal A-fib ? Rate controlled patient was taking off systemic anticoagulation due to recurrent GI bleed 12. Anemia - Secondary to chronic disorder monitoring H&H and transfuse if patient becomes symptomatic or hemoglobin falls below 7 13. Recent history of gallstone pancreatitis ? Manage conservatively 14. DVT prophylaxis - On enoxaparin Time spent in the patient's overall evaluation,decision-making process, review of diagnostic data, adjustment of management, discussion with other providers, nursing nursing and ancillary staff involved in patient's care documentation, 75 Minutes Advance planning; did discuss with the patient and family regarding advanced directives as well as CODE STATUS. Did explain the various scenarios involved ( FULL CODE, DNR CCA, DNR CCA with no intubation, and DNR CC and what each meant) patient elected to be DNR CCA no intubation. Order was placed. Time spent on discussion 18 minutes. Charges/Coding Visit Charges Inpatient E&M: 32645 Init Hosp L3 Procedures Hospitalists Procedures: 79453 Advncd Care Plan 30 Min
[2023-07-27] MEDS: Furosemide 40 MG/4 ML Vial IV ×3 (13:41→21:16)
[2023-07-27] MEDS: 0.9% Saline Lock 10 ML Syringe IV ×2 (15:14→21:20)
[2023-07-27] MEDS: Ferrous Sulfate 325 MG Tablet PO (15:14)
[2023-07-27 18:21] LABS: Troponin-I HS 21 pg/mL (3.0-54.0)
[2023-07-27] MEDS: Menthol/Lanolin/Calamine/Znox 113 GM Tube 1 APPLIC TOPICAL ×2 (19:03→21:14)
[2023-07-27] MEDS: Nystatin Powder 15gm Bottle 1 APPLIC TOPICAL (21:15)
[2023-07-27] MEDS: SILDENAFIL CITRATE 20 MG TABLET PO (21:16)
[2023-07-27] MEDS: Pramipexole Di-HCl 0.125 MG Tablet 0.0625 MG PO (21:16)
[2023-07-27] MEDS: Sodium Bicarbonate 650 MG Tablet PO (21:16)
[2023-07-28] VITALS (10 sets, daily range): BP systolic 115–160; BP diastolic 49–64; PULSE 82–94; RESP 17–19; TEMP 36.8–37; O2SAT 92–98; BMI 49.8
[2023-07-28] MEDS: 0.9% Saline Lock 10 ML Syringe IV ×4 (06:08→21:30)
[2023-07-28] MEDS: Furosemide 40 MG/4 ML Vial IV ×3 (06:09→21:29)
[2023-07-28] MEDS: SILDENAFIL CITRATE 20 MG TABLET PO ×3 (06:10→21:43)
[2023-07-28 07:22] LABS: Absolute Lymphocyte Count 0.75 X10^3/uL (0.83-4.51); Absolute Neutrophil Count 7.3 X10^3/uL (2.0-7.7); Basophil# 0.03 X10^3/uL; Basophil% 0.3 % (0-1); Eosinophil# 0.16 X10^3/uL; Eosinophils% 1.8 % (0-5); Hematocrit 23.8 % (37-47); Lymphocyte # 0.75 X10^3/ul (0.83-4.51); Lymphocyte % 8.6 % (19-41); Mean Corp Hgb Conc 29.4 g/dL (32-36); Mean Corpuscular Hgb 27.9 pg (27.0-32.0); Mean Corpuscular Volume 94.8 fL (81-99); Mean Platelet Vol. 12.3 fl (6.2-12.0); Monocyte# 0.38 X10^3/uL; Monocyte% 4.4 % (0-10); NRBC Flagged by Analyzer 0 % (0-5); Neutrophil # 7.33 X10^3/uL (2.7-7.7); Neutrophil % 84.2 % (47-70); Platelet Count 181 K/mm3 (150-450); Red Blood Count 2.51 M/mm3 (4.2-5.4); White Blood Count 8.7 K/mm3 (4.4-11.0)
[2023-07-28 07:52] LABS: Anion Gap 3 (5-15); BUN 29 mg/dL (7-18); BUN/Creat Ratio 14.6 RATIO (10-20); Calcium,Total 8.7 mg/dL (8.5-10.1); Chloride 116 mmol/L (98-107); Creatinine, Serum 1.98 mg/dL (0.55-1.02); EST Glomerular Filtration Rate 26 mL/min (>60); Est Glom Filt Rate - Afr Amer 31 mL/min (>60); Estimated Creatinine Clearance 21.21 ml/min; Glucose 93 mg/dL (74-106); Potassium 4.3 mmol/L (3.5-5.1); Sodium Level 143 mmol/L (136-145)
--- NOTE | 2023-07-28 08:15 | PCM.PN.HOSP ---
Reason for Visit Reason for Visit: Diagnoses Acute on chronic diastolic (congestive) heart failure (07/27/23) Subjective Subjective Patient is an 78-year-old lady with multiple comorbidities including pulmonary hypertension, congestive heart failure with preserved ejection fraction, history of aortic valve replacement, morbid obesity with BMI of 51 presented with progressive shortness of breath. Patient seen still remains dyspneic at rest. Hemoglobin down to 7.0. An order was given for patient to be transfused with 1 unit PRBC with patient being deemed to be symptomatic Objective Data Objective Data Vital Signs: Vital Signs Temp Pulse Resp BP Pulse Ox O2 Del Method O2 Flow Rate 98.6 F 86 18 125/50 H 96 CPAP 2 07/28/23 03:30 07/28/23 03:30 07/28/23 03:30 07/28/23 03:30 07/28/23 03:30 07/28/23 03:30 07/28/23 03:30 Oxygen Flow Rate (L/min) 2 Oxygen Delivery Method CPAP Weight: 140.8 kg Body Mass Index (BMI) 49.8 Intake & Output: Intake and Output for Last 24 Hours 07/26/23 07/27/23 07/28/23 23:59 23:59 23:59 Intake Total 120 / 120 Output Total 900 / 1700 1949 / 1949 Balance -780 / -1580 -1950 / -1950 Lab / Micro Data 07/28/23 06:17 07/28/23 06:17 Labs: Laboratory Results - last 24 hr 07/27/23 11:40: WBC 10.0, RBC 2.68 L, Hgb 7.6 L, Hct 25.0 L, MCV 93.3, MCH 28.4, MCHC 30.4 L, RDW Std Deviation 53.3 H, RDW Coeff of Fariba 16.0 H, Plt Count 167, MPV 11.8, Immature Gran % (Auto) 0.800, Neut % (Auto) 89.8 H, Lymph % (Auto) 5.4 L, [place] % (Auto) 2.7, Eos % (Auto) 0.9, Baso % (Auto) 0.4, Absolute Neuts (auto) 9.0 H, Absolute Lymphs (auto) 0.54 L, Nucleated RBC % 0, Hypochromasia 1+, D-Dimer Quant (PE/DVT) < 0.27 L, Sodium 143, Potassium 4.0, Chloride 117 H, Carbon Dioxide 22.0, Anion Gap 4 L, BUN 30 H, Creatinine 1.88 H, Estim Creat Clear Calc 22.34, Est GFR (MDRD) Af Amer 33 L, Est GFR (MDRD) Non-Af 27 L, BUN/Creatinine Ratio 16.0, Glucose 146 H, Lactic Acid 0.6, Calcium 8.6, Total Bilirubin 0.30, AST 15, ALT 14, Alkaline Phosphatase 112, Troponin I High Sens 19, B-Natriuretic Peptide 134.9 H, Total Protein 6.4, Albumin 2.4 L, Globulin 4.0, Albumin/Globulin Ratio 0.6 L 07/27/23 17:48: Troponin I High Sens 21 07/28/23 06:17: WBC 8.7, RBC 2.51 L, Hgb 7.0 L, Hct 23.8 L, MCV 94.8, MCH 27.9, MCHC 29.4 L, RDW Std Deviation 55.0 H, RDW Coeff of Fariba 16.0 H, Plt Count 181, MPV 12.3 H, Immature Gran % (Auto) 0.700, Neut % (Auto) 84.2 H, Lymph % (Auto) 8.6 L, [place] % (Auto) 4.4, Eos % (Auto) 1.8, Baso % (Auto) 0.3, Absolute Neuts (auto) 7.3, Absolute Lymphs (auto) 0.75 L, Nucleated RBC % 0, Sodium 143, Potassium 4.3, Chloride 116 H, Carbon Dioxide 24.0, Anion Gap 3 L, BUN 29 H, Creatinine 1.98 H, Estim Creat Clear Calc 21.21, Est GFR (MDRD) Af Amer 31 L, Est GFR (MDRD) Non-Af 26 L, BUN/Creatinine Ratio 14.6, Glucose 93, Calcium 8.7 ABG Data ABG results: ABG 07/27/23 11:51 Specimen Type MERCEDES Sample Site Not entered O2 % 4.0 VBG pH 7.44 H VBG pO2 44 H VBG HCO3 20 L VBG Total CO2 21 L VBG O2 Sat (Calc) 82 H VBG Base Excess -4 L POC Mix VBG pCO2 Pt Tmp 29.3 L O2 Delivery Device Cannula Radiography Diagnostic Testing: Radiology Impression Chest X-Ray 07/27/23 10:22 IMPRESSION: Bilateral interstitial opacities which may be due to infection or edema. Electronically Signed: Adolfo Ansari MD at 10:51 EST , Rhythm Strip Rhythm Strip: A-fib Rate: 106 Ectopy: None Physical Exam Narrative GENERAL: cooperative HEENT: Atraumatic; normocephalic EYES; Anicteric, Normal Conjunctiva NECK; supple, normal thyroid, RESPIRATORY: Diminished to auscultation CARDIOVASCULAR: Regular S1 S2, GI: soft, normoactive bowel sounds, : No Renal angle tenderness; EXTREMITIES: edema, no clubbing, MUSCULOSKELETAL: no muscle wasting NEURO: Awake; no lateralizing signs. SKIN: No Rash PSYCH; Flat affect Assessment & Plan Assessment/Plan (1) Acute exacerbation of CHF (congestive heart failure): QUALIFIERS: Heart failure type: diastolic Qualified Code(s): I50.33 - Acute on chronic diastolic (congestive) heart failure PLAN: Plan Patient is an 78-year-old lady with multiple comorbidities including pulmonary hypertension, congestive heart failure with preserved ejection fraction, history of aortic valve replacement, morbid obesity with BMI of 51 presented with progressive shortness of breath 1. Acute on chronic congestive heart failure with preserved ejection fraction ? Most recent echo in February 2023 demonstrated EF of 75% with PASP of 70%. Patient has been admitted to monitored bed placed on strict input and output, fluid restriction, daily weights as well as IV diuretics ? 07/28/2023 patient still remains dyspneic at rest 2. Pulmonary hypertension ? With PASP of 70. Patient is on sildenafil as well as Orenitram, both medications continued 3. Acute respiratory insufficiency ? Secondary to above patient placed on nasal cannula titrated to keep oxygen saturation greater than 90 4. Valvular heart disease ? With history of AV prosthetic valve replacement 5. Obstructive sleep apnea ? Consistent use of CPAP at night encouraged 6. Class III obesity with BMI of 51 ? Complicating care weight loss advised 7. GERD ? Patient is on PPI continue 8. Restless leg syndrome ? Patient is on ropinirole continue 9. Chronic kidney disease stage IIIb Patient is followed by nephrology as outpatient kidney function at baseline 10. Hypertension - Blood pressure controlled, home medications continued with dose adjustment as needed 11. Paroxysmal A-fib ? Rate controlled patient was taking off systemic anticoagulation due to recurrent GI bleed 12. Anemia - Secondary to chronic disorder monitoring H&H and transfuse if patient becomes symptomatic or hemoglobin falls below 7 ? 07/28/2023;Hemoglobin down to 7.0. An order was given for patient to be transfused with 1 unit PRBC with patient being deemed to be symptomatic 13. Recent history of gallstone pancreatitis ? Manage conservatively 14. DVT prophylaxis - On enoxaparin Time spent in the patient's overall evaluation,decision-making process, review of diagnostic data, adjustment of management, discussion with other providers, nursing nursing and ancillary staff involved in patient's care documentation, 50 Minutes Charges/Coding Visit Charges Inpatient E&M: 29501 [facility] Hosp L3
[2023-07-28] MEDS: Magnesium Chloride 64 MG Delay Rel.Tablet PO (10:13)
[2023-07-28] MEDS: Ferrous Sulfate 325 MG Tablet PO ×2 (10:13→17:01)
[2023-07-28] MEDS: Ascorbic Acid 500 MG Tablet PO (10:13)
[2023-07-28] MEDS: amLODIPine 10 MG Tablet PO (10:13)
[2023-07-28] MEDS: Sodium Bicarbonate 650 MG Tablet PO ×2 (10:13→21:43)
[2023-07-28] MEDS: Pantoprazole Sodium 40 MG Tablet PO (10:13)
[2023-07-28] MEDS: Menthol/Lanolin/Calamine/Znox 113 GM Tube 1 APPLIC TOPICAL ×4 (10:14→21:38)
[2023-07-28] MEDS: Nystatin Powder 15gm Bottle 1 APPLIC TOPICAL ×2 (10:15→21:39)
[2023-07-28 11:04] LABS: Platelet Count 167 K/mm3 (150-450); RET-HE 29.2 pg (30-35); Reticulocyte Count 2.81 % (0.5-1.5)
[2023-07-28 11:08] LABS: Ferritin 581 ng/mL (8-252); Iron 25 ug/dL (50-170); Iron Binding Capacity,Total 228 ug/dL (250-450)
[2023-07-28] MEDS: Enoxaparin 40 MG/0.4 ML Syringe SC (12:07)
[2023-07-28] MEDS: Pramipexole Di-HCl 0.125 MG Tablet 0.0625 MG PO (21:43)
[2023-07-29] VITALS (9 sets, daily range): BP systolic 124–159; BP diastolic 49–82; PULSE 71–87; RESP 16–20; TEMP 36.6–36.9; O2SAT 88–95; BMI 49.0
[2023-07-29] MEDS: 0.9% Saline Lock 10 ML Syringe IV (05:28)
[2023-07-29] MEDS: Furosemide 40 MG/4 ML Vial IV (05:28)
[2023-07-29] MEDS: SILDENAFIL CITRATE 20 MG TABLET PO ×3 (05:35→23:09)
[2023-07-29 06:18] LABS: Absolute Lymphocyte Count 0.85 X10^3/uL (0.83-4.51); Absolute Neutrophil Count 6.7 X10^3/uL (2.0-7.7); Basophil# 0.03 X10^3/uL; Basophil% 0.4 % (0-1); Eosinophil# 0.21 X10^3/uL; Eosinophils% 2.6 % (0-5); Hemoglobin 8.2 g/dL (12.0-15.0); Lymphocyte # 0.85 X10^3/ul (0.83-4.51); Lymphocyte % 10.4 % (19-41); Mean Corp Hgb Conc 29.3 g/dL (32-36); Mean Corpuscular Hgb 27.7 pg (27.0-32.0); Mean Corpuscular Volume 94.6 fL (81-99); Mean Platelet Vol. 11.8 fl (6.2-12.0); Monocyte% 4.9 % (0-10); NRBC Flagged by Analyzer 0 % (0-5); Neutrophil # 6.66 X10^3/uL (2.7-7.7); Neutrophil % 81.1 % (47-70); Platelet Count 189 K/mm3 (150-450); RBC Distribution Width SD 54.9 fl (35.1-43.9); Red Blood Count 2.96 M/mm3 (4.2-5.4); White Blood Count 8.2 K/mm3 (4.4-11.0)
[2023-07-29 06:36] LABS: Anion Gap 7 (5-15); BUN 27 mg/dL (7-18); Calcium,Total 8.7 mg/dL (8.5-10.1); Chloride 109 mmol/L (98-107); Creatinine, Serum 2.07 mg/dL (0.55-1.02); EST Glomerular Filtration Rate 25 mL/min (>60); Est Glom Filt Rate - Afr Amer 30 mL/min (>60); Estimated Creatinine Clearance 20.29 ml/min; Glucose 104 mg/dL (74-106); Sodium Level 142 mmol/L (136-145)
[2023-07-29 08:55] LABS: Vitamin B12 1364 pg/mL (211-911)
[2023-07-29] MEDS: Sodium Bicarbonate 650 MG Tablet PO ×2 (09:24→23:10)
[2023-07-29] MEDS: Cyanocobalamin 500 MCG Tablet 2500 MCG PO (09:24)
[2023-07-29] MEDS: Enoxaparin 40 MG/0.4 ML Syringe SC (09:24)
[2023-07-29] MEDS: Magnesium Chloride 64 MG Delay Rel.Tablet PO (09:24)
[2023-07-29] MEDS: amLODIPine 10 MG Tablet PO (09:24)
[2023-07-29] MEDS: Ferrous Sulfate 325 MG Tablet PO ×2 (09:24→18:06)
[2023-07-29] MEDS: Ascorbic Acid 500 MG Tablet PO (09:24)
[2023-07-29] MEDS: Pantoprazole Sodium 40 MG Tablet PO (09:24)
[2023-07-29] MEDS: Menthol/Lanolin/Calamine/Znox 113 GM Tube 1 APPLIC TOPICAL ×4 (09:25→23:12)
[2023-07-29] MEDS: Nystatin Powder 15gm Bottle 1 APPLIC TOPICAL ×2 (09:25→23:05)
--- NOTE | 2023-07-29 09:27 | CASEMGMT ---
Discharge Planning Call received from Kim TSANG. Patient is active with agency for SN/PT/OT. Narcisa Delgado, Discharge Planning Asst.
--- NOTE | 2023-07-29 09:30 | CASEMGMT ---
Patient has a Healthcare Power of Medical Information Specialist and a Healthcare Living Will on file at [facility]. Ermelinda Gutierrez [employer]LECT[employer]ICAL MAINTENANCE MECHANIC GIANA
--- NOTE | 2023-07-29 15:00 | PN_ITS ---
Subjective Subjective Patient seen and examined. She felt well and had no complaints. She felt her breathing was improving. Review of systems otherwise negative. She has remained hemodynamically stable. She is on 2 L of oxygen. Objective Data Objective Data Vital Signs: Vital Signs Temp Pulse Resp BP Pulse Ox O2 Del Method O2 Flow Rate 98.0 F 82 20 H 159/49 H 94 Nasal Cannula 2 07/29/23 09:20 07/29/23 09:20 07/29/23 09:20 07/29/23 09:20 07/29/23 09:37 07/29/23 09:37 07/29/23 14:18 Oxygen Flow Rate (L/min) 2 Oxygen Delivery Method Nasal Cannula Weight: 304 lb 0.279 oz Body Mass Index (BMI) 49.0 Intake & Output: Intake and Output for Last 24 Hours 07/27/23 07/28/23 07/29/23 23:59 23:59 23:59 Intake Total 120 / 120 1451 / 1451 Output Total 900 / 1700 5400 / 5400 1500 / 1500 Balance -780 / -1580 -3949 / -3949 -1500 / -1500 Lab / Micro Data 07/29/23 05:40 07/29/23 05:40 Labs: Laboratory Results - last 24 hr 07/28/23 06:17: Vitamin B12 1364 H 07/28/23 11:25: Blood Type A POSITIVE, Antibody Screen NEGATIVE, Crossmatch See Detail 07/29/23 05:40: WBC 8.2, RBC 2.96 L, Hgb 8.2 L, Hct 28.0 L, MCV 94.6, MCH 27.7, MCHC 29.3 L, RDW Std Deviation 54.9 H, RDW Coeff of Fariba 16.0 H, Plt Count 189, MPV 11.8, Immature Gran % (Auto) 0.600, Neut % (Auto) 81.1 H, Lymph % (Auto) 10.4 L, [place] % (Auto) 4.9, Eos % (Auto) 2.6, Baso % (Auto) 0.4, Absolute Neuts (auto) 6.7, Absolute Lymphs (auto) 0.85, Nucleated RBC % 0, Sodium 142, Potassium 4.0, Chloride 109 H, Carbon Dioxide 26.0, Anion Gap 7, BUN 27 H, Creatinine 2.07 H, Estim Creat Clear Calc 20.29, Est GFR (MDRD) Af Amer 30 L, Est GFR (MDRD) Non-Af 25 L, BUN/Creatinine Ratio 13.0, Glucose 104, Calcium 8.7 Rhythm Strip Rhythm Strip: A-fib Rate: 106 Ectopy: None Physical Exam Const oriented x3 and no apparent distress General Appearance: cooperative HEENT normocephalic, head/scalp atraumatic, moist oral mucous membranes and oropharynx normal Eyes PERRL and EOMs intact bilaterally Neck no lymphadenopathy and supple Lymph Lymphatic: no lymphadenopathy noted and no lymphedema noted Resp Resp Narrative: mildly diminished breath sounds bibasally, no wheezes or crackles. On 2L of oxygen by nasal canula Cardio regular rate, regular rhythm, S1 normal heart sound, S2 normal heart sound and no murmurs GI normal to inspection, nondistended, normoactive bowel sounds, soft to palpation and non-tender Extremity General Extremity: no tenderness to palpation of joints or extremities Skin General Skin Exam: no breakdown Neuro CN's II-XII intact bilaterally, no focal motor deficits, no sensory deficits noted and deep tendon reflexes 2+ bilaterally Motor Exam: strength 5/5 throughout and general weakness Psych thought process normal and cooperative Appearance: appropriate Assessment & Plan Assessment/Plan (1) Acute exacerbation of CHF (congestive heart failure): QUALIFIERS: Heart failure type: diastolic Qualified Code(s): I50.33 - Acute on chronic diastolic (congestive) heart failure PLAN: Plan #Acute on chronic HFpEF * Now on 2 L of oxygen. Has known EF of 75% with pulmonary artery systolic pres sure of 70 mmHg. * Been diuresed with IV Lasix. Monitor intake and output. Fluid restriction to 1500 cc daily. #Pulmonary hypertension: Has known pulmonary artery systolic pressure of 70 mmHg. On sildenafil and Orenitram. Follow-up with pulmonology on outpatient basis. #Hypoxia due to acute on chronic heart failure preserved EF fraction: On 2 L of oxygen as above. #AARTI: Positive compliant with CPAP nightly. #Restless leg syndrome: On ropinirole #GERD: On PPI #Hypertension: #History of aortic valve stenosis: S/p bioprosthetic aortic valve replacement. #Paroxysmal A-fib: Not on anticoagulation due to recurrent GI bleed. #LUIS ALBERTO on CKD 3B: Creatinine is up to 2.08 today. Likely due to diuresis. Will hold IV Lasix for now and monitor creatinine. #Acute on chronic anemia: Hemoglobin today is 8.2. Was 7 yesterday and so she was transfused with a unit of packed red blood cells. Does have chronic anemia. DVT prophylaxis: On Lovenox, renally dosed Total time spent on evaluation and management of patient, reviewing chart and specialist notes, discussing plan with patient, discussion with nursing and ancillary staff as well as documentation: 45 mins Charges/Coding Visit Charges Inpatient E&M: 49278 Subs Hosp L2
[2023-07-29] MEDS: Ondansetron 4 MG/2 ML Vial IV (15:23)
[2023-07-29] MEDS: Acetaminophen 325 MG Tablet 650 MG PO (15:23)
[2023-07-29] MEDS: Pramipexole Di-HCl 0.125 MG Tablet 0.0625 MG PO (23:06)
[2023-07-30 04:20] VITALS: BP 115/48; PULSE 77; RESP 18; TEMP 36.8; O2SAT 94
[2023-07-30 05:45] VITALS: BMI 48.5
[2023-07-30 06:04] LABS: Absolute Neutrophil Count 6.5 X10^3/uL (2.0-7.7); Basophil# 0.04 X10^3/uL; Basophil% 0.5 % (0-1); Eosinophil# 0.17 X10^3/uL; Eosinophils% 2.2 % (0-5); Hematocrit 26.9 % (37-47); Hemoglobin 7.9 g/dL (12.0-15.0); Lymphocyte % 7.8 % (19-41); Mean Corp Hgb Conc 29.4 g/dL (32-36); Mean Corpuscular Hgb 28.2 pg (27.0-32.0); Mean Corpuscular Volume 96.1 fL (81-99); Mean Platelet Vol. 11.7 fl (6.2-12.0); Monocyte# 0.38 X10^3/uL; Monocyte% 4.9 % (0-10); NRBC Flagged by Analyzer 0 % (0-5); POSITIVE DIFFERENTIAL YES; Platelet Count 189 K/mm3 (150-450); RBC Distribution Width CV 15.9 % (11.6-14.6); RBC Distribution Width SD 56.4 fl (35.1-43.9); White Blood Count 7.7 K/mm3 (4.4-11.0)
[2023-07-30 06:06] LABS: Differential Indicated SCAN CRITERIA MET
[2023-07-30 06:25] LABS: Anion Gap 6 (5-15); BUN 27 mg/dL (7-18); BUN/Creat Ratio 12.2 RATIO (10-20); Calcium,Total 8.1 mg/dL (8.5-10.1); Chloride 110 mmol/L (98-107); Creatinine, Serum 2.21 mg/dL (0.55-1.02); EST Glomerular Filtration Rate 23 mL/min (>60); Est Glom Filt Rate - Afr Amer 28 mL/min (>60); Estimated Creatinine Clearance 19.01 ml/min; Glucose 103 mg/dL (74-106); Potassium 3.9 mmol/L (3.5-5.1); Sodium Level 143 mmol/L (136-145)
[2023-07-30] MEDS: SILDENAFIL CITRATE 20 MG TABLET PO ×2 (06:31→14:37)
[2023-07-30 07:00] LABS: Differential Comment SCANNED
[2023-07-30 07:17] VITALS: O2SAT 92
[2023-07-30 09:23] VITALS: O2SAT 85
[2023-07-30 10:00] VITALS: BP 125/53; PULSE 86; RESP 18; TEMP 36.9; O2SAT 96
[2023-07-30] MEDS: Nystatin Powder 15gm Bottle 1 APPLIC TOPICAL (10:06)
[2023-07-30] MEDS: Menthol/Lanolin/Calamine/Znox 113 GM Tube 1 APPLIC TOPICAL ×2 (10:06→14:39)
[2023-07-30] MEDS: Ferrous Sulfate 325 MG Tablet PO ×2 (10:06→16:24)
[2023-07-30] MEDS: amLODIPine 10 MG Tablet PO (10:06)
[2023-07-30] MEDS: Magnesium Chloride 64 MG Delay Rel.Tablet PO (10:06)
[2023-07-30] MEDS: Pantoprazole Sodium 40 MG Tablet PO (10:06)
[2023-07-30] MEDS: Ascorbic Acid 500 MG Tablet PO (10:06)
[2023-07-30] MEDS: Sodium Bicarbonate 650 MG Tablet PO (10:06)
[2023-07-30] MEDS: Enoxaparin 30 MG/0.3 ML Syringe SC (10:14)
[2023-07-30] MEDS: Acetaminophen 325 MG Tablet 650 MG PO (10:14)
[2023-07-30 10:27] VITALS: O2SAT 85; O2SAT 88; O2SAT 89; O2SAT 93
--- NOTE | 2023-07-30 11:00 | CASEMGMT ---
LELE BEGUM chart reveiw: Patient was [id number]/21/23 for hypoxia and acute pancreatitis. See LELE BEGUM assessment from 07/10/23. Patient was discharged to home with [facility] and follow-up plans in place. Patient returned 07/27/23 for SOB and was admitted for CHF. LELE BEGUM in to discuss needs at discharge and readmission. Patient states she was taking medications as directed. Patient states she has telephone call with PCP. Patireglan states [facility] had come to visit patient. Patient wishes to discharge home with resumption of [facility] and family support. Will monitor for home oxygen at discharge. Patient states she prefers [employer]. CM will continue to follow this patient and plan for a safe discharge.
--- NOTE | 2023-07-30 12:42 | CASEMGMT ---
Patient's often has difficulty getting patient in and out of the vehicle so patient has missed appointments. Patient nor her actually told SW this information. Patient's Nurse Practitioner called in and shared this information with RN. SW provided information on [place] to patient and her . They thanked SW for the information. Ermelinda FARIA
--- NOTE | 2023-07-30 13:08 | DCINST_ITS ---
Discharge Instructions Diet Discharge Diet: Low fat / Low cholesterol Activity Discharge Activity: Return to Normal Activity Weight Bearing Status: Weight bearing as tolerated Dressing / Incision Call your doctor if you observe: Fever of 101 or Higher, Shortness of breath, Dizziness, Swelling in the ankles and Chest pain Follow Up Care Test Results: Test results from this visit will be discussed in further detail at your follow- up appointment, if applicable. Discharge Plan Admission Admit Date/Time: 07/27/23 12:41 Primary Reason for Your Visit: acut on chronic HFpEF Attending Provider: Karen Victoria Primary Care Provider: Chiquis Santana Consulting Providers: Eric Fontaine Instructions Patient Instructions: ED Heart Failure, Congestive (CHF), Heart Failure Discharge Orders/Prescriptions Prescriptions: New furosemide 40 mg tablet 40 mg PO DAILY Qty: 30 2RF Continued magnesium 250 mg tablet 250 mg PO DAILY ferrous sulfate [Melissa-Time] 325 mg (65 mg iron) tablet 325 mg PO BID cyanocobalamin (vitamin B-12) 2,500 mcg lozenge 2,500 mcg sublingual QODAY ascorbic acid (vitamin C) 500 mg capsule 500 mg PO DAILY aspirin [Adult Aspirin Regimen] 81 mg tablet,delayed release (DR/EC) 81 mg PO DAILY Hold Instructions: MD Ordered pantoprazole 40 mg tablet,delayed release (DR/EC) 40 mg PO DAILY sildenafil (pulm.hypertension) 20 MG tablet 20 mg PO TID Orenitram 1 mg tablet extended release 4.5 mg PO TID Patient Comments: TAKE ONE 4.5MG TABLET BY MOUTH THREE TIMES A DAY. TAKE AN ADDITIONAL 0.125MG TABLET ON EVERY SATURDAY UNTIL A FINAL GOAL DOSE OF 5MG IS ACHIEVED. sodium bicarbonate 650 mg Tablet 650 mg PO BID 30 Days Qty: 60 0RF loperamide 2 mg Capsule 2 mg PO Q4H PRN PRN (Reason: Diarrhea) Qty: 14 0RF ropinirole 0.25 MG tablet 0.125 mg PO QHS Qty: 30 0RF amlodipine 10 mg tablet 10 mg PO DAILY Qty: 90 3RF Referrals / Follow Up: Chiquis Santana NP-C [Primary Care Provider] - 08/06/23 2:30 pm Disposition Disposition (needs filled in before D/C Order can be placed): Home, Self Care
--- NOTE | 2023-07-30 13:14 | PCM.DC.SUM ---
Providers Date of Admission: 07/27/23 Date of Discharge: 07/30/23 Primary Care Physician: Chiquis Santana, DANIELE-C Reason For Visit: CHF Diagnosis Discharge Diagnosis (1) Acute exacerbation of CHF (congestive heart failure): Status: Chronic Code(s): I50.9 - Heart failure, unspecified Qualifiers: Heart failure type: diastolic Qualified Code(s): I50.33 - Acute on chronic diastolic (congestive) heart failure Plan #Acute on chronic HFpEF Now on 2 L of oxygen. Has known EF of 75% with pulmonary artery systolic pressure of 70 mmHg. Been diuresed with IV Lasix. Monitor intake and output. Fluid restriction to 1500 cc daily. #Pulmonary hypertension: Has known pulmonary artery systolic pressure of 70 mmHg. On sildenafil and Orenitram. Follow-up with pulmonology on outpatient basis. #Hypoxia due to acute on chronic heart failure preserved EF fraction: On 2 L of oxygen as above. #AARTI: Positive compliant with CPAP nightly. #Restless leg syndrome: On ropinirole #GERD: On PPI #Hypertension: #History of aortic valve stenosis: S/p bioprosthetic aortic valve replacement. #Paroxysmal A-fib: Not on anticoagulation due to recurrent GI bleed. #LUIS ALBERTO on CKD 3B: Creatinine is up to 2.08 today. Likely due to diuresis. Will hold IV Lasix for now and monitor creatinine. #Acute on chronic anemia: Hemoglobin today is 8.2. Was 7 yesterday and so she was transfused with a unit of packed red blood cells. Does have chronic anemia. DVT prophylaxis: On Lovenox, renally dosed Total time spent on evaluation and management of patient, reviewing chart and specialist notes, discussing plan with patient, discussion with nursing and ancillary staff as well as documentation: 45 mins Medications at Discharge Home Medications sildenafil (pulm.hypertension) 20 mg tablet 20 mg PO TID PULMONARY HTN 11/18/17 magnesium 250 mg tablet 250 mg PO DAILY SUPPLEMENT 10/09/18 ferrous sulfate 325 mg (65 mg iron) tablet (Melissa-Time) 325 mg PO BID SUPPLEMENT 04/14/19 ascorbic acid (vitamin C) 500 mg capsule 500 mg PO DAILY SUPPLEMENT 05/10/20 cyanocobalamin (vitamin B-12) 2,500 mcg sublingual lozenge 2,500 mcg sublingual QODAY SUPPLEMENT 05/10/20 pantoprazole 40 mg tablet,delayed release 40 mg PO DAILY ACID REFLUX 03/06/21 amlodipine 10 mg tablet 10 mg PO DAILY BLOOD PRESSURE #90 tabs 06/27/22 aspirin 81 mg tablet,delayed release (Adult Aspirin Regimen) 81 mg PO DAILY heart health 06/27/23 treprostinil diolamine 1 mg tablet,extended release (Orenitram) 4.5 mg PO TID PULMONARY HTN 07/09/23 loperamide 2 mg capsule 2 mg PO Q4H PRN PRN Diarrhea #14 caps 07/21/23 ropinirole 0.25 mg tablet 0.125 mg (1/2 x 0.25 mg) PO QHS RESTLESS LEGS #30 tabs 07/21/23 sodium bicarbonate 650 mg tablet 650 mg PO BID supplement 30 days #60 tabs 07/21/23 furosemide 40 mg tablet 40 mg PO DAILY #30 tabs 07/30/23 Hospital Course Operations None Procedures 2-D Echocardiogram Summary of Care Provided Minutes Spent on Discharge: 55 Hospital Course: Patient is an 78-year-old female with a past medical history as outlined was admitted through the ED on 07/27/2023 with a complaint of shortness of breath. She had recently been admitted for acute pancreatitis and discharged on 07/20/2023. Subsequently came back to the ED complaining of shortness of breath which had gradually been worsening since she was discharged. He had associated weight gain and swelling in both of her lower extremities. Imaging done showed evidence of vascular congestion. She had had a 2D echo in February 2023 which showed EF of 75% with pulmonary artery systolic pressure of 70 mmHg. She was admitted and managed for acute on chronic heart failure preserved ejection fraction. She was diuresed with IV Lasix. She had known pulmonary hypertension and was on sildenafil and Orenitram which were continued. Patient's shortness of breath gradually improved and she was weaned down to room air. She did use her CPAP at night as she had been doing at home. She improved and did well. She remained stable and was discharged home on 07/30/2023. She is to follow-up with her primary care doctor within 1 to 2 weeks. Hospital course was also complicated by acute on chronic anemia and was transfused with one unit of PRBCs. She did have a hsitory of anemia requiring transfusion in the past and it was attributed to her CKD. She was discharged on p.o. Lasix 40 mg daily. Patient had a walking pulse ox which showed that she required 2 L of oxygen so she was also discharged on 2 L of oxygen. Patient seen and examined prior to discharge. She had no complaints and had an uneventful night. Review of symptoms otherwise negative. Labs and vitals reviewed. Home medication reviewed and reconciled. Physical Exam Const oriented x3 and no apparent distress General Appearance: cooperative and comfortable HEENT normocephalic, head/scalp atraumatic, hearing grossly normal bilaterally, moist oral mucous membranes and oropharynx normal Mouth: oral and palatal mucosa normal Eyes PERRL, EOMs intact bilaterally and conjunctivae normal Neck no lymphadenopathy and supple Lymph Lymphatic: no lymphadenopathy noted and no lymphedema noted Resp Resp Narrative: mildly diminished breath sounds bibasally, no wheezes or crackles. On room air Cardio regular rate, regular rhythm, S1 normal heart sound, S2 normal heart sound and no murmurs GI normal to inspection, nondistended, normoactive bowel sounds, soft to palpation and non-tender Extremity General Extremity: no tenderness to palpation of joints or extremities Skin no rashes or lesions noted General Skin Exam: no breakdown Neuro oriented x3, CN's II-XII intact bilaterally, moves all extremities, no focal motor deficits, no sensory deficits noted and deep tendon reflexes 2+ bilaterally Sensorium / Orientation: awake and alert Motor Exam: strength 5/5 throughout and general weakness Psych thought process normal and cooperative Appearance: appropriate Weight / BMI Weight Weight: 300 lb 14.896 oz Body Mass Index (BMI) 48.5 ABG / Lab / Microbiology Data 07/30/23 05:32 07/30/23 05:32 Laboratory: Laboratory Results - last 24 hr 07/30/23 05:32: WBC 7.7, RBC 2.80 L, Hgb 7.9 L, Hct 26.9 L, MCV 96.1, MCH 28.2, MCHC 29.4 L, RDW Std Deviation 56.4 H, RDW Coeff of Fariba 15.9 H, Plt Count 189, MPV 11.7, Immature Gran % (Auto) 0.600, Neut % (Auto) 84.0 H, Lymph % (Auto) 7.8 L, [place] % (Auto) 4.9, Eos % (Auto) 2.2, Baso % (Auto) 0.5, Absolute Neuts (auto) 6.5, Absolute Lymphs (auto) 0.60 L, Nucleated RBC % 0, Differential Comment SCANNED, Sodium 143, Potassium 3.9, Chloride 110 H, Carbon Dioxide 27.0, Anion Gap 6, BUN 27 H, Creatinine 2.21 H, Estim Creat Clear Calc 19.01, Est GFR (MDRD) Af Amer 28 L, Est GFR (MDRD) Non-Af 23 L, BUN/Creatinine Ratio 12.2, Glucose 103, Calcium 8.1 L D/C Instructions Discharge Diet: Low fat / Low cholesterol Discharge Activity: Return to Normal Activity Weight Bearing Status: Weight bearing as tolerated Call your doctor if you observe: Fever of 101 or Higher, Shortness of breath, Dizziness, Swelling in the ankles and Chest pain Meaningful Use Info Meaningful Use Diagnoses (Choose all that apply): CHF CHF MARIE/ARB ordered at discharge?: No Reason MARIE/ARB not ordered?: Not indicated Documented LVEF (%): 70 Discharge Plan Admission Admit Date/Time: 07/27/23 12:41 Primary Reason for Your Visit: acut on chronic HFpEF Attending Provider: Karen Victoria Primary Care Provider: Chiquis Santana Consulting Providers: Eric Fontaine Instructions Patient Instructions: ED Heart Failure, Congestive (CHF), Heart Failure Discharge Orders/Prescriptions Prescriptions: New furosemide 40 mg tablet 40 mg PO DAILY Qty: 30 2RF Continued magnesium 250 mg tablet 250 mg PO DAILY ferrous sulfate [Melissa-Time] 325 mg (65 mg iron) tablet 325 mg PO BID cyanocobalamin (vitamin B-12) 2,500 mcg lozenge 2,500 mcg sublingual QODAY ascorbic acid (vitamin C) 500 mg capsule 500 mg PO DAILY aspirin [Adult Aspirin Regimen] 81 mg tablet,delayed release (DR/EC) 81 mg PO DAILY Hold Instructions: Ordered pantoprazole 40 mg tablet,delayed release (DR/EC) 40 mg PO DAILY sildenafil (pulm.hypertension) 20 MG tablet 20 mg PO TID Orenitram 1 mg tablet extended release 4.5 mg PO TID Patient Comments: TAKE ONE 4.5MG TABLET BY MOUTH THREE TIMES A DAY. TAKE AN ADDITIONAL 0.125MG TABLET ON EVERY SATURDAY UNTIL A FINAL GOAL DOSE OF 5MG IS ACHIEVED. sodium bicarbonate 650 mg Tablet 650 mg PO BID 30 Days Qty: 60 0RF loperamide 2 mg Capsule 2 mg PO Q4H PRN PRN (Reason: Diarrhea) Qty: 14 0RF ropinirole 0.25 MG tablet 0.125 mg PO QHS Qty: 30 0RF amlodipine 10 mg tablet 10 mg PO DAILY Qty: 90 3RF Referrals / Follow Up: Chiquis Santana, [employer]-C [Primary Care Provider] - 08/06/23 2:30 pm Disposition Disposition (needs filled in before D/C Order can be placed): Home, Self Care Charges/Coding Visit Charges Inpatient E&M: 33097 Disch Hosp >30min
--- NOTE | 2023-07-30 14:03 | CASEMGMT ---
Discharge Planning HH resumption order sent to [place] via [facility]. Narcisa Delgado, Discharge Planning Asst.
--- NOTE | 2023-07-30 14:10 | PHA.DC.MC.R ---
Pharmacy [facility] has performed discharge medication reconciliation and counseling for this patient. 1. FUROSEMIDE 40MG PO DAILY The patient's discharge medication list was reviewed for discrepancies and discrepancies were resolved. The patient was counseled on the following discharge medications and changes in medications for homegoing were reviewed. The Reason for Use, instructions for use, and potential side effects were reviewed for all new medications. The patient's questions regarding all of their medications were answered. The patient was able to verbally demonstrate an understanding of their discharge medications. Medications at Discharge Home Medications sildenafil (pulm.hypertension) 20 mg tablet 20 mg PO TID PULMONARY HTN 11/18/17 magnesium 250 mg tablet 250 mg PO DAILY SUPPLEMENT 10/09/18 ferrous sulfate 325 mg (65 mg iron) tablet (Melissa-Time) 325 mg PO BID SUPPLEMENT 04/14/19 ascorbic acid (vitamin C) 500 mg capsule 500 mg PO DAILY SUPPLEMENT 05/10/20 cyanocobalamin (vitamin B-12) 2,500 mcg sublingual lozenge 2,500 mcg sublingual QODAY SUPPLEMENT 05/10/20 pantoprazole 40 mg tablet,delayed release 40 mg PO DAILY ACID REFLUX 03/06/21 amlodipine 10 mg tablet 10 mg PO DAILY BLOOD PRESSURE #90 tabs 06/27/22 aspirin 81 mg tablet,delayed release (Adult Aspirin Regimen) 81 mg PO DAILY heart health 06/27/23 treprostinil diolamine 1 mg tablet,extended release (Orenitram) 4.5 mg PO TID PULMONARY HTN 07/09/23 loperamide 2 mg capsule 2 mg PO Q4H PRN PRN Diarrhea #14 caps 07/21/23 ropinirole 0.25 mg tablet 0.125 mg (1/2 x 0.25 mg) PO QHS RESTLESS LEGS #30 tabs 07/21/23 sodium bicarbonate 650 mg tablet 650 mg PO BID supplement 30 days #60 tabs 07/21/23 furosemide 40 mg tablet 40 mg PO DAILY #30 tabs 07/30/23
[2023-07-30 14:34] VITALS: BP 138/57; PULSE 78; RESP 18; TEMP 36.7; O2SAT 95
[2023-07-30] MEDS: 0.9% Saline Lock 10 ML Syringe IV (14:53)
--- NOTE | 2023-07-30 16:00 | CASEMGMT ---
Patient has order for discharge. Patient qualifies for home oxygen at discharge. Patient prefers [employer]. Script received and referral sent to [facility] via [facility]. Patient to go home with resumption of HHC with [place]. [place] planning manager to send resumption referral. Patient and deny further needs at discharge. Patient and had no further questions or concerns.
== END 2023-07-30 17:11 | disposition home or self-care (01) | DRG 291 ==
LOC: ED 12:50 → PCU 13:32
PROVIDERS: Admitting Provider Internal Medicine; Emergency Provider Emergency Medicine; PCP Nurse Practitioner Family; Referring Provider Emergency Medicine; Visit Provider Student in an Organized Health Care Education/Training Program
DX: I13.0 Hypertensive heart and chronic kidney disease with heart failure and stage 1 through stage 4 chronic kidney disease, or unspecified chronic kidney disease (principal); I50.33 Acute on chronic diastolic (congestive) heart failure; N17.9 Acute kidney failure, unspecified; Z68.43 Body mass index [BMI] 50.0-59.9, adult; I27.21 Secondary pulmonary arterial hypertension; D63.1 Anemia in chronic kidney disease; E11.22 Type 2 diabetes mellitus with diabetic chronic kidney disease; I48.0 Paroxysmal atrial fibrillation; G25.81 Restless legs syndrome; N18.32 Chronic kidney disease, stage 3b; E66.01 Morbid (severe) obesity due to excess calories; I25.10 Atherosclerotic heart disease of native coro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 pectoris; E78.5 Hyperlipidemia, unspecified; G47.33 Obstructive sleep apnea (adult) (pediatric); K21.9 Gastro-esophageal reflux disease without esophagitis; I25.2 Old myocardial infarction; Z95.3 Presence of xenogenic heart valve; R09.02 Hypoxemia; Z66 Do not resuscitate; Z79.82 Long term (current) use of aspirin; Z79.899 Other long term (current) drug therapy; Z86.16 Personal history of COVID-19; Z87.19 Personal history of other diseases of the digestive system
CPT/HCPCS: 36415; 36591; 71045; 80048; 80053; 82607; 82728; 82803; 83540; 83550; 83605; 83880; 84484; 85025; 85045; 85379; 86850; 86900; 86901; 86920; 86922; 93005; 94640; 94668; 97162; 97166; 97530; 97535; 99252; 99285; J7040; P9016; A4216; G0463; J1940; J2405

== ENCOUNTER → 2023-08-08 | Outpatient (CLI) | payer MEDICARE, OTHER, SELFPAY ==
[2023-08-08 13:04] LABS: Erythrocyte Sedimentation Rate 33 mm/hr (0-30)
== END | disposition home or self-care (01) ==
LOC: MTLAB 11:28
PROVIDERS: PCP Nurse Practitioner Family; Referring Provider Orthopaedic Surgery Orthopaedic Surgery of the Spine; Visit Provider Orthopaedic Surgery Orthopaedic Surgery of the Spine
DX: M54.50 Low back pain, unspecified (principal)
CPT/HCPCS: 36415; 85652; 86140

== ENCOUNTER → 2023-08-30 | Outpatient (CLI) | payer MEDICARE, OTHER, SELFPAY ==
--- NOTE | 2023-08-30 16:49 | MRI_ITS ---
We are attempting to reach an attending provider to discuss findings. An addendum with communication details will be sent when the communication is complete. STUDY: MRI LUMBAR SPINE WITHOUT CONTRAST REASON FOR EXAM: Female, 78 years old. pain TECHNIQUE: Standardized fat and water weighted pulse sequences were obtained in the sagittal and axial planes. COMPARISON: None FINDINGS: No evidence for acute fracture or subluxation. There are interosseous hemangiomata within the L3 and L1 vertebral bodies T12-L1: Normal endplates. Narrowed disc space with desiccation of disc and minimal annular bulge.. Normal bilateral facet joints. Normal central canal and bilateral lateral recesses. Normal bilateral intervertebral neural foramina. Normal lumbar lordosis. There is no substantial scoliosis. Normal conus medullaris that terminates at the L1-2: Normal endplates. Narrowed disc space with desiccation of the disc and minimal annular bulge.. Normal bilateral facet joints. Normal central canal and bilateral lateral recesses. Normal bilateral intervertebral neural foramina. L2-3: There is low signal intensity within the superior aspect of the L3 vertebral body, inferior endplate of L2 and disc on T1 which increases in signal on T2 and STIR imaging sequences which may be consistent with acute osteomyelitis and discitis. There are also inflammatory changes seen within the paraspinous fat bilaterally involving the right psoas muscle.. Normal disc height, hydration and morphology. Normal bilateral facet joints. Normal central canal and bilateral lateral recesses. Normal bilateral intervertebral neural foramina. L3-4: Normal endplates. Normal disc height, desiccation and minimal annular bulge.. Facet arthropathy and thickening of ligamenta flava. Mild to moderate narrowing of the central canal. Moderate narrowing of the bilateral lateral recesses and neuroforamina. L4-5: Normal endplates. Normal disc height, desiccation mild annular bulge.. Facet arthropathy and thickening of ligamenta flava.. Normal central canal. Moderate to severe bilateral lateral recess and neural foraminal stenosis L5-S1: Normal endplates. Normal disc height, desiccation and minimal annular bulge.. Facet arthropathy and mild thickening of left ligamentum flavum. Normal central canal and mild left lateral recess stenosis and moderate neural foraminal stenosis. Mild right neural foraminal encroachment Normal visualized sacral ala. Normal visualized paraspinous soft tissue structures. MRI/Spine Lumbar (Routine) IMPRESSION: Findings consistent with acute osteomyelitis and discitis at L2-3 with phlegmonous changes in the paraspinous fat and right psoas abscess.. No definitive evidence for epidural extension however contrast-enhanced MRI would be helpful for further assessment if indicated Multilevel spinal stenosis secondary to disc disease and bony hypertrophy. Electronically Signed: Emir Almaraz MD at 19:25 EST ,
[2023-08-30 17:32] LABS: CREATININE FINGERSTICK 1.4 mg/dL (0.55-1.02)
== END | disposition home or self-care (01) ==
LOC: MRI 16:44
PROVIDERS: PCP Nurse Practitioner Family; Referring Provider Orthopaedic Surgery Orthopaedic Surgery of the Spine; Visit Provider Orthopaedic Surgery Orthopaedic Surgery of the Spine
DX: M54.50 Low back pain, unspecified (principal); I27.20 Pulmonary hypertension, unspecified
CPT/HCPCS: 72148

== ENCOUNTER 2023-09-04 14:38 | Outpatient (CLI) | payer MEDICARE, OTHER, SELFPAY ==
[2023-09-04 15:53] LABS: Absolute Neutrophil Count 4.9 X10^3/uL (2.0-7.7); Basophil# 0.03 X10^3/uL; Basophil% 0.5 % (0-1); Eosinophil# 0.06 X10^3/uL; Hematocrit 30.7 % (37-47); Hemoglobin 9.1 g/dL (12.0-15.0); Lymphocyte % 13.2 % (19-41); Mean Corp Hgb Conc 29.6 g/dL (32-36); Mean Corpuscular Hgb 28.3 pg (27.0-32.0); Mean Corpuscular Volume 95.6 fL (81-99); Mean Platelet Vol. 11.8 fl (6.2-12.0); Monocyte# 0.26 X10^3/uL; Monocyte% 4.3 % (0-10); NRBC Flagged by Analyzer 0 % (0-5); Neutrophil % 80.7 % (47-70); Platelet Count 221 K/mm3 (150-450); RBC Distribution Width SD 52.9 fl (35.1-43.9); Red Blood Count 3.21 M/mm3 (4.2-5.4); White Blood Count 6.1 K/mm3 (4.4-11.0)
[2023-09-04 16:10] LABS: CRP < 2.90 mg/L (0.0-3.0)
[2023-09-04 16:16] LABS: Erythrocyte Sedimentation Rate 26 mm/hr (0-30)
== END 2023-09-04 14:39 | disposition home or self-care (01) ==
LOC: MEDOUTP 14:38
PROVIDERS: PCP Nurse Practitioner Family; Visit Provider Orthopaedic Surgery Orthopaedic Surgery of the Spine
DX: I27.0 Primary pulmonary hypertension (principal); I35.0 Nonrheumatic aortic (valve) stenosis; M46.46 Discitis, unspecified, lumbar region; Z45.2 Encounter for adjustment and management of vascular access device; R06.02 Shortness of breath
CPT/HCPCS: 36591; 83880; 85025; 85652; 86140; A4216

== ENCOUNTER 2023-11-29 12:56 | Outpatient (CLI) | payer MEDICARE, OTHER, SELFPAY ==
[2023-11-29 13:52] LABS: Absolute Lymphocyte Count 0.95 X10^3/uL (0.83-4.51); Absolute Neutrophil Count 4.2 X10^3/uL (2.0-7.7); Basophil# 0.03 X10^3/uL; Basophil% 0.5 % (0-1); Eosinophil# 0.07 X10^3/uL; Eosinophils% 1.3 % (0-5); Hematocrit 34.3 % (37-47); Hemoglobin 10.9 g/dL (12.0-15.0); Lymphocyte # 0.95 X10^3/ul (0.83-4.51); Lymphocyte % 17.1 % (19-41); Mean Corp Hgb Conc 31.8 g/dL (32-36); Mean Corpuscular Hgb 29.5 pg (27.0-32.0); Mean Platelet Vol. 12.7 fl (6.2-12.0); Monocyte# 0.24 X10^3/uL; Monocyte% 4.3 % (0-10); NRBC Flagged by Analyzer 0 % (0-5); Neutrophil # 4.24 X10^3/uL (2.7-7.7); Neutrophil % 76.4 % (47-70); Platelet Count 178 K/mm3 (150-450); RBC Distribution Width CV 13.6 % (11.6-14.6); RBC Distribution Width SD 46.4 fl (35.1-43.9); Red Blood Count 3.69 M/mm3 (4.2-5.4); White Blood Count 5.6 K/mm3 (4.4-11.0)
[2023-11-29 13:59] LABS: Albumin, Serum 3.6 g/dL (3.2-5.0); BUN 43 mg/dL (7-18); BUN/Creat Ratio 24.7 RATIO (10-20); Calcium,Total 9.4 mg/dL (8.5-10.1); Chloride 106 mmol/L (98-107); Creatinine, Serum 1.74 mg/dL (0.55-1.02); EST Glomerular Filtration Rate 30 mL/min (>60); Est Glom Filt Rate - Afr Amer 36 mL/min (>60); Glucose 127 mg/dL (74-106); Phosphorus 3.6 mg/dL (2.5-4.9); Potassium 3.9 mmol/L (3.5-5.1); Sodium Level 140 mmol/L (136-145)
[2023-11-29 14:03] LABS: Vitamin D,25 Hydroxy 59.3 ng/mL
[2023-11-29 14:07] LABS: Protein, Urine (Random) 13.5 mg/dL (<11.9); Protein:Creat Ratio 304 mg/g CRE (0-200)
[2023-11-29 14:20] LABS: PTHIN 120.4 pg/mL (18.4-80.1)
== END 2023-11-29 12:57 | disposition home or self-care (01) ==
LOC: MEDOUTP 12:56
PROVIDERS: PCP Nurse Practitioner Family; Referring Provider Internal Medicine Nephrology; Visit Provider Internal Medicine Nephrology
DX: N18.32 Chronic kidney disease, stage 3b (principal)
CPT/HCPCS: 36591; 80069; 82306; 82570; 83970; 84156; 85025; A4216

== ENCOUNTER 2023-12-11 11:57 | Outpatient (CLI) | payer MEDICARE, OTHER, SELFPAY ==
[2023-12-11 12:53] LABS: Absolute Lymphocyte Count 0.96 X10^3/uL (0.83-4.51); Basophil# 0.03 X10^3/uL; Basophil% 0.6 % (0-1); Eosinophil# 0.04 X10^3/uL; Eosinophils% 0.8 % (0-5); Hematocrit 34.4 % (37-47); Hemoglobin 10.9 g/dL (12.0-15.0); Lymphocyte # 0.96 X10^3/ul (0.83-4.51); Lymphocyte % 18.1 % (19-41); Mean Corp Hgb Conc 31.7 g/dL (32-36); Mean Corpuscular Hgb 29.5 pg (27.0-32.0); Mean Platelet Vol. 12.8 fl (6.2-12.0); Monocyte# 0.23 X10^3/uL; Monocyte% 4.3 % (0-10); NRBC Flagged by Analyzer 0 % (0-5); Neutrophil # 4.03 X10^3/uL (2.7-7.7); Neutrophil % 75.8 % (47-70); Platelet Count 165 K/mm3 (150-450); RBC Distribution Width CV 13.7 % (11.6-14.6); RBC Distribution Width SD 46.9 fl (35.1-43.9); White Blood Count 5.3 K/mm3 (4.4-11.0)
[2023-12-11 13:21] LABS: ALB/GLOB Ratio 0.9 RATIO (0.9-2.4); AST(SGOT) 16 U/L (15-37); Alanine Aminotransfer ALT/SGPT 9 U/L (13-56); Albumin, Serum 3.9 g/dL (3.2-5.0); Alkaline Phosphatase 76 U/L (45-117); Amylase 47 U/L (25-115); Anion Gap 5 (5-15); BUN 43 mg/dL (7-18); BUN/Creat Ratio 25.3 RATIO (10-20); Calcium,Total 9.6 mg/dL (8.5-10.1); Chloride 105 mmol/L (98-107); EST Glomerular Filtration Rate 31 mL/min (>60); Est Glom Filt Rate - Afr Amer 37 mL/min (>60); Globulin 4.2 g/dL (2.2-4.2); Glucose 106 mg/dL (74-106); Lipase 34 U/L (13-75); Potassium 3.8 mmol/L (3.5-5.1); Protein, Total 8.1 g/dL (6.4-8.2); Sodium Level 139 mmol/L (136-145); Thyroid Stim Hormone (TSH) 3.66 uIU/mL (0.358-3.74)
== END 2023-12-11 11:58 | disposition home or self-care (01) ==
PROVIDERS: PCP Nurse Practitioner Family; Referring Provider Nurse Practitioner Family; Visit Provider Nurse Practitioner Family
DX: I50.32 Chronic diastolic (congestive) heart failure (principal); N18.30 Chronic kidney disease, stage 3 unspecified; K80.20 Calculus of gallbladder without cholecystitis without obstruction; D62 Acute posthemorrhagic anemia
CPT/HCPCS: 36591; 80053; 82150; 83690; 84443; 85025; A4216

== ENCOUNTER → 2024-01-22 | Outpatient (CLI) | payer MEDICARE, OTHER, SELFPAY ==
--- NOTE | 2024-01-22 10:38 | BI_ITS ---
MAMMOGRAPHY - BILATERAL SCREENING REASON FOR EXAM: Female, 78 years old. Routine annual screening examination. PERTINENT HISTORY: Non-contributory. TECHNIQUE: Digital bilateral breast jodi (3D mammographic acquisition) in the CC and MLO projections. 2-D mediolateral oblique (MLO) and craniocaudad (CC) views of both breasts were obtained. CAD: Full Field Digital Mammography with Computer Added Detection was performed. COMPARISON: Comparison is made with prior study dated August 08, 2022 and August 01, 2021. FINDINGS: Breast Composition: There are scattered areas of fibroglandular density. There are no dominant masses or suspicious calcifications. No other significant abnormalities are identified. There has been no significant change since the prior study. BI/SCRN MAMM (CAD)W/JODI BILAT IMPRESSION: Stable bilateral screening mammogram. Yearly follow-up mammogram recommended. (A) ASSESSMENT CATEGORY: BIRADS Category 1: Negative. A letter regarding these results will be sent to the patient by the facility within 30 days. Approximately 10% of breast cancers are not detected by mammography. A normal mammogram should not delay biopsy of a clinically suspicious abnormality. [id number] Electronically Signed: Irvin Edwards MD at 13:08 EDT ,
== END | disposition home or self-care (01) ==
LOC: OPBI 10:38
PROVIDERS: PCP Nurse Practitioner Family; Referring Provider Nurse Practitioner Family; Visit Provider Nurse Practitioner Family
DX: Z12.31 Encounter for screening mammogram for malignant neoplasm of breast (principal)
CPT/HCPCS: 77063; 77067

== ENCOUNTER → 2024-02-12 | Outpatient (CLI) | payer MEDICARE, OTHER, SELFPAY ==
[2024-02-12 15:43] LABS: Erythrocyte Sedimentation Rate 18 mm/hr (0-30)
[2024-02-12 15:45] LABS: Absolute Lymphocyte Count 0.91 X10^3/uL (0.83-4.51); Absolute Neutrophil Count 8.4 X10^3/uL (2.0-7.7); Basophil# 0.02 X10^3/uL; Basophil% 0.2 % (0-1); Eosinophil# 0.02 X10^3/uL; Eosinophils% 0.2 % (0-5); Hematocrit 25.3 % (37-47); Hemoglobin 7.8 g/dL (12.0-15.0); Lymphocyte # 0.91 X10^3/ul (0.83-4.51); Lymphocyte % 9.1 % (19-41); Mean Corp Hgb Conc 30.8 g/dL (32-36); Mean Corpuscular Hgb 29.1 pg (27.0-32.0); Mean Corpuscular Volume 94.4 fL (81-99); Mean Platelet Vol. 12.2 fl (6.2-12.0); Monocyte# 0.58 X10^3/uL; Monocyte% 5.8 % (0-10); NRBC Flagged by Analyzer 0 % (0-5); Neutrophil # 8.38 X10^3/uL (2.7-7.7); Neutrophil % 83.6 % (47-70); Platelet Count 212 K/mm3 (150-450); RBC Distribution Width SD 45.2 fl (35.1-43.9); Red Blood Count 2.68 M/mm3 (4.2-5.4)
[2024-02-12 15:48] LABS: ALB/GLOB Ratio 0.9 RATIO (0.9-2.4); AST(SGOT) 6 U/L (15-37); Alanine Aminotransfer ALT/SGPT 11 U/L (13-56); Albumin, Serum 3.5 g/dL (3.2-5.0); Alkaline Phosphatase 90 U/L (45-117); Amylase 32 U/L (25-115); Anion Gap 5 (5-15); BUN 49 mg/dL (7-18); BUN/Creat Ratio 25.3 RATIO (10-20); Calcium,Total 9.1 mg/dL (8.5-10.1); Chloride 104 mmol/L (98-107); Creatinine, Serum 1.94 mg/dL (0.55-1.02); EST Glomerular Filtration Rate 26 mL/min (>60); Est Glom Filt Rate - Afr Amer 32 mL/min (>60); Globulin 3.8 g/dL (2.2-4.2); Glucose 130 mg/dL (74-106); LDH 210 U/L (84-246); Lipase 24 U/L (13-75); Potassium 4.4 mmol/L (3.5-5.1); Protein, Total 7.3 g/dL (6.4-8.2); Sodium Level 137 mmol/L (136-145)
== END | disposition home or self-care (01) ==
LOC: LABSPEC 15:03
PROVIDERS: PCP Nurse Practitioner Family; Visit Provider Nurse Practitioner Family
DX: R82.90 Unspecified abnormal findings in urine (principal); R50.9 Fever, unspecified; K80.20 Calculus of gallbladder without cholecystitis without obstruction
CPT/HCPCS: 80053; 82150; 83615; 83690; 85025; 85652; 86140

== ENCOUNTER 2024-02-13 20:10 | Inpatient (IN) | payer MEDICARE, OTHER, SELFPAY ==
[2024-02-13] VITALS (8 sets, daily range): BP systolic 124–153; BP diastolic 48–58; PULSE 62–78; RESP 17–25; TEMP 36.9–37.3; O2SAT 87–99; BMI 42.5
--- NOTE | 2024-02-13 20:44 | EKG12_ITS ---
Test Reason : ABNORMAL LABS Blood Pressure : / mmHG Vent. Rate : 073 BPM Atrial Rate : 000 BPM P-R Int : 000 ms QRS Dur : 088 ms QT Int : 370 ms P-R-T Axes : 000 006 -37 degrees QTc Int : 407 ms Atrial fibrillation Septal infarct , age undetermined Possible Inferior infarct , age undetermined Abnormal ECG Confirmed by Nelson Maloney ([id number]), subeditor OPAL PATTERSON ([id number]) on 02/15/2024 7:45:55 AM Referred By: Confirmed By:Nelson Maloney
--- NOTE | 2024-02-13 21:03 | RAD_ITS ---
INDICATION: fever COMPARISON: None. Findings: Single frontal view of the chest. LUNG PARENCHYMA: Bibasilar interstitial thickening, confluent at the left lung base. Mary B-lines present. PLEURA: No pleural effusion. No pneumothorax. HEART/GREAT VESSELS: Cardiomegaly. Right chest port catheter tip overlies cavoatrial junction. Chest port hub annotated with letters CT. Valve endovascular stent material in place. Prominence of the central vasculature suggesting venous congestion. BONES: Osseous structures are unremarkable for age. RAD/Chest 1 View (Portable) IMPRESSION: Bibasilar interstitial process with Mary B-lines present, confluent the left lung base, suggesting pulmonary edema given venous congestion and cardiomegaly. Infectious etiology is not excluded. Electronically Signed: Bo Montiel MD at 22:42 EDT ,
--- NOTE | 2024-02-13 21:06 | EDS_ITS ---
HPI History of Present Illness Chief Complaint: Abn Labs Informant: patient and spouse/S.O. Narrative Narrative: 78-year-old female presenting to the emergency room with abnormal labs. Patient tells me that yesterday she went to see her nurse practitioner for the evaluation of fever and fatigue. She states that she was put on amoxicillin for the fever. She states she had blood work drawn that showed a low hemoglobin at 7.8 as well as a CRP of 41 and today had her labs redrawn. This showed a hemoglobin of 7.4 and a CRP of 42. As noted she had a normal ESR yesterday. States she also gave a urine specimen. White count and platelets were within normal limits. Patient notes that she has a history of anemia and does take iron. She notes that her stool is soft and usually dark because of the iron. She denies any obvious blood loss. She denies earache sore throat nasal congestion vomiting abdominal pain dysuria hematuria or diarrhea. She states she chronically has low back pain which is not changed. She does note a history of discitis last year. She has had an aortic valve replacement but has no history of CHF or coronary artery disease. She denies any rashes. She notes that she feels fatigued with exertion and some mild shortness of breath. Per cardiology note she underwent a TAVR with a 26 mm Navarrete CP and S3 in 2019. [facility] Medical History Pneumonia COVID-19 Obstructive sleep apnea Chronic kidney disease, stage 3b Pleural effusion on left 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 longterm (current) use of anticoagulants Anemia of chronic renal failure, stage 3 (moderate) Nonobstructive atherosclerosis of coronary artery Longstanding persistent atrial fibrillation Acute blood loss anemia (09/24/20) Iron deficiency anemia due to chronic blood loss Chronic GI bleeding Chronic diastolic (congestive) heart failure Type 2 diabetes mellitus Essential (primary) hypertension Presence of IVC filter (09/2018) Anemia in chronic kidney disease (CKD) Acute kidney injury Bloody stool Knee pain Anemia Arthritis Hyperkalemia Non-ST elevation (NSTEMI) myocardial infarction (12/09/16) Nonrheumatic aortic (valve) stenosis Nonrheumatic mitral (valve) insufficiency Nonrheumatic tricuspid (valve) insufficiency Other secondary pulmonary hypertension Sepsis secondary to UTI Fatigue History of pneumonia Osteopenia Liver disease History of GI bleed Diverticulitis History of blood transfusion Morbid obesity Iron deficiency anemia Hyperlipidemia Home Medications ?Medication ?Instructions ?Recorded ?Last Taken ?Type sildenafil (pulm.hypertension) 20 20 mg PO TID PULMONARY HTN 11/18/17 07/09/23 History mg tablet magnesium 250 mg tablet 250 mg PO DAILY SUPPLEMENT 10/09/18 07/09/23 History ferrous sulfate 325 mg (65 mg 325 mg PO BID SUPPLEMENT 04/14/19 07/09/23 History iron) tablet (Melissa-Time) ascorbic acid (vitamin C) 500 mg 500 mg PO DAILY SUPPLEMENT 05/10/20 07/09/23 History capsule cyanocobalamin (vitamin B-12) 2,500 mcg sublingual QODAY 05/10/20 07/09/23 History 2,500 mcg sublingual lozenge SUPPLEMENT pantoprazole 40 mg tablet,delayed 40 mg PO DAILY ACID REFLUX 03/06/21 07/08/23 History release furosemide 40 mg tablet 40 mg PO DAILY #30 tabs 07/30/23 Unknown Rx cholecalciferol (vitamin D3) 50 50 mcg PO DAILY 08/08/23 Unknown History mcg (2,000 unit) capsule amlodipine 10 mg tablet 10 mg PO DAILY BLOOD PRESSURE #90 12/11/23 Unknown Rx tabs amoxicillin 500 mg capsule 500 mg PO .COMPLEX #4 caps 01/07/24 Unknown Rx guar gum 1 tbsp PO DAILY PRN 02/11/24 Unknown History Allergy/AdvReac Type Severity Reaction Status Date / Time pravastatin AdvReac Severe severe Verified 02/13/24 20:15 muscle and joint pain Family History Mother , age 83 Uterine cancer Hypertension Father , age 81 Heart disease Diabetes CAD (coronary artery disease) Hypertension Surgical History History of hysterectomy History of root canal procedure H/O aortic valve replacement (09/15/18) coil embolization of colonic artery History of left heart catheterization (LHC) (04/10/17) Status post right foot surgery History of hysterectomy History of appendectomy Social History household members: spouse housing: house Smoking Status: Never smoker alcohol intake: never substance use type: does not use caffeine: No what type of physical activity do you participate in: none divina/church: [employer] seatbelt use: always do you feel safe at home: Yes ROS ROS ED ROS Narrative Generalized fatigue Constitutional Constitutional ED: Reports fever(s); Denies chills or weight loss Eyes Eyes: Denies change in vision or diplopia ENT ENT ED: Denies ear pain, rhinorrhea or sore throat Cardiovascular Cardiovascular: Denies chest pain, orthopnea, palpitations or racing heartbeat Respiratory/Chest Respiratory/Chest: Reports dyspnea on exertion; Denies cough, dyspnea or orthopnea Gastrointestinal Gastrointestinal: Denies abdominal pain, diarrhea, melena, nausea or vomiting Genitourinary Genitourinary ED: Denies dysuria, hematuria or urinary frequency Musculoskeletal Musculoskeletal: Reports other Details: Chronic back pain no change ; Denies arthralgias or myalgias Integumentary Denies abscess or rash Neurologic Neurologic: Denies headache(s) or weakness Psychiatric Psychiatric: Denies anxiety, depression, suicidal ideation or suicidal thoughts Endocrine Endocrinology: Denies polydipsia, polyphagia or polyuria Allergic/Immunologic Allergic/Immunologic ED: Denies mouth swelling, tongue swelling or urticaria EXAM Physical Exam Const Vital Signs: 02/13/24 20:13 02/13/24 21:32 02/13/24 22:29 Temperature 98.4 F Temperature Source Temporal Pulse Rate 74 65 Respiratory Rate 20 H 18 Respiratory Effort Normal Respiratory Pattern Normal Blood Pressure 141/58 H 153/53 H Blood Pressure Mean 85 86 Pulse Ox 99 96 Oxygen Delivery Method Room Air Room Air Positive well nourished, well developed and obese General Appearance ED: well developed Nutritional Appearance: obese HEENT Reports normocephalic, head/scalp atraumatic and moist mucous membranes Eyes PERRL and EOMs intact bilaterally Neck no lymphadenopathy, supple and no JVD Resp normal respiratory effort and clear to auscultation bilaterally Cardio regular rate, regular rhythm and no murmurs GI normal to inspection, nondistended, normoactive bowel sounds and non-tender Palpation: soft Back/Spine no CVA tenderness and normal ROM Extremity normal to inspection General Extremety ED: Negative for edema General Extremity: Negative for edema Neuro oriented x3 and CN's II-XII intact bilaterally Sensorium / Orientation: alert Motor Exam: strength 5/5 throughout Psych mental status grossly normal Mood & Affect: Negative for depressed or tearful Skin no rashes or lesions noted and no wounds MDM MDM MDM Narrative Medical decision making narrative: Differential diagnosis includes hemolytic anemia acute blood loss anemia infecti ous etiologies like sepsis discitis UTI viral infections. White count returns at 8.7 with 77.8 neutrophils. INR 1.3 PTT 35.2. Hemoglobin of 7 platelet count 195. Creatinine 1.92 with a BUN of 52. Glucose of 157 troponin elevated 186 which I suspect is type II given her EKG and nonischemic changes. Lactic acid is normal. Urinalysis is negative. COVID influenza and RSV swabs were negative. My independent interpretation of the chest x-ray is no acute process. Please see the radiologist read. She certainly does have a history of heart failure but her symptomology does not consistent with acute CHF. Her lung sounds are clear. Blood cultures were obtained. She was typed and crossed for 2 units. I did not give aspirin due to the high likelihood that her blood loss anemia is coming from the GI system. She does have a history of AVMs requiring treatment. These has been done at [facility] in the past. Plan is admission to the hospital and will speak with our hospitalist agatha. History & Record Review Discussion w/independent historian: Patient and Significant other Additional record(s) reviewed:: Prior inpatient record, Prior ED visit and Prior labs Lab Data Attestation: I reviewed the patient's lab results. Labs: Laboratory Results - last 24 hr 02/13/24 02/13/24 21:05 22:17 WBC 8.7 RBC 2.40 L Hgb 7.0 L Hct 22.2 L MCV 92.5 MCH 29.2 MCHC 31.5 L RDW Std Deviation 43.9 RDW Coeff of Fariba 13.0 Plt Count 195 MPV 12.1 H Immature Gran % (Auto) 0.500 Neut % (Auto) 77.8 H Lymph % (Auto) 13.3 L Dixon % (Auto) 7.6 Eos % (Auto) 0.6 Baso % (Auto) 0.2 Absolute Neuts (auto) 6.8 Absolute Lymphs (auto) 1.16 Nucleated RBC % 0 PT 15.7 H INR 1.3 APTT 35.2 Sodium 135 L Potassium 3.5 Chloride 103 Carbon Dioxide 25.0 Anion Gap 7 BUN 52 H Creatinine 1.91 H Estim Creat Clear Calc 30.90 Est GFR (MDRD) Af Amer 33 L Est GFR (MDRD) Non-Af 27 L BUN/Creatinine Ratio 27.2 H Glucose 157 H Lactic Acid 1.0 Calcium 8.4 L Total Bilirubin 0.40 Direct Bilirubin 0.15 AST 8 L ALT 13 Alkaline Phosphatase 84 Troponin I High Sens 186 H* Total Protein 7.1 Albumin 3.1 L Globulin 4.0 Urine Color Yellow Urine Clarity Clear Urine pH 6.0 Ur Specific [place] 1.010 Urine Protein 15 H Urine Glucose (UA) Normal Urine Ketones Negative Urine Occult Blood 10 H Urine Nitrite Negative Urine Bilirubin Negative Urine Urobilinogen Normal Ur Leukocyte Esterase 100 H Urine RBC 0 SEEN Urine WBC 0-5 SEEN Ur Squamous Epith Cells 0 SEEN Urine Bacteria 0 SEEN Urine Mucus 0 SEEN Radiography Diagnostic Testing: Clinical Impression(s) from Imaging Studies Chest X-Ray 02/13/24 21:03 IMPRESSION: Bibasilar interstitial process with Mary B-lines present, confluent the left lung base, suggesting pulmonary edema given venous congestion and cardiomegaly. Infectious etiology is not excluded. Electronically Signed: Bo Montiel MD at 22:42 EDT , EKG Initial EKG: Attestation: I personally reviewed and interpreted this EKG as follows: Comments: Atrial fibrillation ventricular rate is 73 bpm Management Discussion w/another healthcare provider: Hospitalist (Dr. Walker) Discharge Plan Dx/Rx/DC Orders Clinical Impression: Acute GI bleeding, Elevated troponin, Acute blood loss anemia, FUO (fever of unknown origin) Disposition Disposition: [facility]
[2024-02-13 21:25] LABS: Absolute Lymphocyte Count 1.16 X10^3/uL (0.83-4.51); Absolute Neutrophil Count 6.8 X10^3/uL (2.0-7.7); Basophil# 0.02 X10^3/uL; Basophil% 0.2 % (0-1); Eosinophil# 0.05 X10^3/uL; Eosinophils% 0.6 % (0-5); Hematocrit 22.2 % (37-47); Lymphocyte # 1.16 X10^3/ul (0.83-4.51); Lymphocyte % 13.3 % (19-41); Mean Corp Hgb Conc 31.5 g/dL (32-36); Mean Corpuscular Hgb 29.2 pg (27.0-32.0); Mean Corpuscular Volume 92.5 fL (81-99); Mean Platelet Vol. 12.1 fl (6.2-12.0); Monocyte# 0.66 X10^3/uL; Monocyte% 7.6 % (0-10); NRBC Flagged by Analyzer 0 % (0-5); Neutrophil # 6.78 X10^3/uL (2.7-7.7); Neutrophil % 77.8 % (47-70); Platelet Count 195 K/mm3 (150-450); RBC Distribution Width SD 43.9 fl (35.1-43.9); White Blood Count 8.7 K/mm3 (4.4-11.0)
[2024-02-13 21:35] LABS: International Normalized Ratio 1.3; Prothrombin Time (Protime)PT. 15.7 SECONDS (11.7-14.9)
[2024-02-13 21:36] LABS: Partial Thromboplast Time 35.2 Seconds (24.1-36.2)
[2024-02-13 21:54] LABS: AST(SGOT) 8 U/L (15-37); Alanine Aminotransfer ALT/SGPT 13 U/L (13-56); Albumin, Serum 3.1 g/dL (3.2-5.0); Alkaline Phosphatase 84 U/L (45-117); Anion Gap 7 (5-15); BUN 52 mg/dL (7-18); BUN/Creat Ratio 27.2 RATIO (10-20); Bilirubin, Direct 0.15 mg/dL (0.00-0.30); Calcium,Total 8.4 mg/dL (8.5-10.1); Chloride 103 mmol/L (98-107); Creatinine, Serum 1.91 mg/dL (0.55-1.02); EST Glomerular Filtration Rate 27 mL/min (>60); Est Glom Filt Rate - Afr Amer 33 mL/min (>60); Glucose 157 mg/dL (74-106); Potassium 3.5 mmol/L (3.5-5.1); Protein, Total 7.1 g/dL (6.4-8.2); Sodium Level 135 mmol/L (136-145); Troponin-I HS 186 pg/mL (3.0-54.0)
[2024-02-13 22:31] LABS: Bacteria 0 SEEN /hpf (None Seen); Mucous, Urine 0 SEEN /hpf (<or=2+); Red Blood Cells-Urine 0 SEEN /hpf (0-5); Squamous Epithelial Cells - UA 0 SEEN /hpf (5-10)
[2024-02-13 22:36] LABS: Color, Urine Yellow (Yellow); Glucose, Dipstick Normal (Normal); Ketone-Dipstick Negative (Negative); Leukocyte Esterase-Dipstick 100 /ul (Negative); Nitrite-Dipstick Negative (Negative); Occult Blood-Urine 10 /ul (Negative); Protein-Dipstick 15 mg/dl (Negative); Urine Bilirubin Dipstick Negative (Negative); Urine Clarity Clear (Clear); Urine Urobilinogen Normal (Normal)
[2024-02-13 22:45] LABS: White Blood Cells 0-5 SEEN /hpf (0-5)
--- NOTE | 2024-02-13 23:01 | PCM.HP.STD ---
HPI - General General Date of Admission: 02/13/24 Date of Service: 02/13/24 Chief Complaint: Dyspnea, fatigue, abnormal labs. HPI Narrative The patient is an 78 y/o F w/ PMHx: Chronic Pulmonary HTN, Morbid obesity, GERD, Hx GI bleed w/ Colonic AVMs s/p prior clipping/cauterizations not felt candidate for surgical management, Chronic anemia/Fe deficiency anemia following with Hematology with IV Fe/PRBC transfusion needs routinely, Valvular Heart Disease s/p AVR, AARTI, Hx VTE, Chronic AF, Diabetes mellitus type II, HFpEF, Chronic Kidney Disease Stage IV per GFR trending with chart previous noted history of CKD stage IIIb who presents to the [facility] ED on 02/13/24 with history of recent outpatient labs noted to be abnormal with patient evaluation the day prior for evaluation of fatigue, malaise and reportedly fever placed on amoxicillin with lab draw at that time hemoglobin 7.8 with redraw of her labs today noted to be decreased down to 7.4 with WBC and platelets within normal limits and reports unchanged dark appearing stool which is common for her given iron supplementation with no recent URI type symptoms but dyspnea worse with exertion. She denies any abdominal pain or cramping. She denies any recent weight gain, orthopnea or increased peripheral edema. Workup in the ED included T98.4, heart rate 74, BP 141/58, respiratory rate 20, 99% on room air, CBC with WBC 8.7, hemoglobin 7.0, MCV 92.5, platelet 195 without marked shift, coags unremarkable aside PT 15.7, CMP with sodium 135, BUN/creatinine 52/1.91, GFR 27, glucose 157, hepatic profile not marked appearing, troponin initial 186, lactic acid 1.0, chest x-ray w/ bibasilar interstitial process, confluent the left lung base, suggesting pulmonary edema given venous congestion and cardiomegaly, infectious etiology is not excluded, stool guaiac positive, blood culture x 2 pending per ED, rapid SARS COVID/influenza/RSV PCR negative, UA with no acute findings. In the ED patient T+C for 2 u PRBC initiated per discussion with ED physician. 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 Anemia of chronic renal failure, stage 3 (moderate) Nonobstructive atherosclerosis of coronary artery Longstanding persistent atrial fibrillation Acute blood loss anemia (09/24/20) Iron deficiency anemia due to chronic blood loss Chronic GI bleeding Chronic diastolic (congestive) heart failure Type 2 diabetes mellitus Essential (primary) hypertension Presence of IVC filter (09/2018) Anemia in chronic kidney disease (CKD) Acute kidney injury Bloody stool Knee pain Anemia Arthritis Hyperkalemia Non-ST elevation (NSTEMI) myocardial infarction (12/09/16) Nonrheumatic aortic (valve) stenosis Nonrheumatic mitral (valve) insufficiency Nonrheumatic tricuspid (valve) insufficiency Other secondary pulmonary hypertension Sepsis secondary to UTI Fatigue History of pneumonia Osteopenia Liver disease History of GI bleed Diverticulitis History of blood transfusion Morbid obesity Iron deficiency anemia Hyperlipidemia Home Medications ?Medication ?Instructions ?Recorded ?Last Taken ?Type sildenafil (pulm.hypertension) 20 20 mg PO TID PULMONARY HTN 11/18/17 07/09/23 History mg tablet magnesium 250 mg tablet 250 mg PO DAILY SUPPLEMENT 10/09/18 07/09/23 History ferrous sulfate 325 mg (65 mg 325 mg PO BID SUPPLEMENT 04/14/19 07/09/23 History iron) tablet (Melissa-Time) ascorbic acid (vitamin C) 500 mg 500 mg PO DAILY SUPPLEMENT 05/10/20 07/09/23 History capsule cyanocobalamin (vitamin B-12) 2,500 mcg sublingual QODAY 05/10/20 07/09/23 History 2,500 mcg sublingual lozenge SUPPLEMENT pantoprazole 40 mg tablet,delayed 40 mg PO DAILY ACID REFLUX 03/06/21 07/08/23 History release furosemide 40 mg tablet 40 mg PO DAILY #30 tabs 07/30/23 Unknown Rx cholecalciferol (vitamin D3) 50 50 mcg PO DAILY 08/08/23 Unknown History mcg (2,000 unit) capsule amlodipine 10 mg tablet 10 mg PO DAILY BLOOD PRESSURE #90 12/11/23 Unknown Rx tabs Allergy/AdvReac Type Severity Reaction Status Date / Time pravastatin AdvReac Severe severe Verified 02/13/24 20:15 muscle and joint pain Family History Mother , age 83 Uterine cancer Hypertension Father , age 81 Heart disease Diabetes CAD (coronary artery disease) Hypertension Surgical History History of hysterectomy History of root canal procedure H/O aortic valve replacement (09/15/18) coil embolization of colonic artery History of left heart catheterization (LHC) (04/10/17) Status post right foot surgery History of hysterectomy History of appendectomy Social History household members: spouse housing: house Smoking Status: Never smoker alcohol intake: never substance use type: does not use caffeine: No what type of physical activity do you participate in: none divina/buddhism: Mennonite seatbelt use: always do you feel safe at home: Yes ROS ROS Narrative Admission Review of Systems: CONSTITUTIONAL: No weight loss, chills. + Fever, weakness or fatigue. HEENT: Eyes: No visual loss, blurred vision, double vision or yellow sclerae. Ears, Nose, Throat: No hearing loss, sneezing, congestion, runny nose or sore throat. SKIN: No rash or itching, lesions, wounds. CARDIOVASCULAR: No chest pain, chest pressure or chest discomfort, palpitations, edema, orthopnea, syncopal events. RESPIRATORY: + Dyspnea, worse with exertion. No marked cough or sputum, wheezing, hemoptysis. GASTROINTESTINAL: + Chronically dark appearing stools. No anorexia, nausea, vomiting or diarrhea, abdominal pain, melena, BRBPR. GENITOURINARY: No dysuria, frequency, urgency or retention. NEUROLOGICAL: No headache, dizziness, syncope, paralysis, ataxia, numbness or tingling in the extremities, focal weakness, change in bowel or bladder control, seizure. MUSCULOSKELETAL: + muscle, back pain, joint pain or stiffness. HEMATOLOGIC: + Chronic anemia, easy bleeding/bruising, history of chronic GI bleed. LYMPHATICS: No enlarged nodes. No history of splenectomy. PSYCHIATRIC: No history of anxiety or depression. ENDOCRINOLOGIC: No reports of sweating, cold or heat intolerance. No polyuria or polydipsia. ALLERGIES: No history of asthma, hives, eczema or rhinitis. Vital Signs Vital Signs Vital Signs: 02/13/24 20:13 02/13/24 21:32 02/13/24 22:29 Temperature 98.4 F Temperature Source Temporal Pulse Rate 74 65 Respiratory Rate 20 H 18 Respiratory Effort Normal Respiratory Pattern Normal Blood Pressure 141/58 H 153/53 H Blood Pressure Mean 85 86 Pulse Ox 99 96 Oxygen Delivery Method Room Air Room Air Weight Weight: 263 lb 2 oz Body Mass Index (BMI) 42.5 Physical Exam Narrative Physical Examination: General: Awake, alert, oriented x 3 and cooperative, laying flat comfortably in the ED bed, no acute distress. Skin: Normal color, normal turgor, no icterus, no cyanosis except for noted venous stasis skin changes bilateral lower extremities. HEENT: AT/NC, EOMI, PERRLA, mildly dry MM, no carotid bruits or markedly elevated JVD noted. Lungs: Diminished, greater bases, appropriate effort, no rales, ronchi or wheezing. Heart: Irregular, rate controlled; no gallop, rub audible, s/p AVR. Abdomen: Soft, morbidly obese, NTTP, ND, hyperactive BS, no appreciated HSM. Extremities: No cyanosis, clubbing, or edema, see skin. Neurological: Patient awake, alert, oriented as noted, cognitive function intact; pupils equally reactive to light and accommodation, cranial nerves grossly normal, moving all 4 extremities, no focal deficits, strength moderately to severely globally decreased secondary to acute presentation. Psychiatric: Affect appears fatigued otherwise normal, no acute evidence of depressive or anxiety feelings. Results Lab / Micro Data 02/13/24 21:05 02/13/24 21:05 Labs: Laboratory Results - last 24 hr 02/13/24 21:05: WBC 8.7, RBC 2.40 L, Hgb 7.0 L, Hct 22.2 L, MCV 92.5, MCH 29.2, MCHC 31.5 L, RDW Std Deviation 43.9, RDW Coeff of Fariba 13.0, Plt Count 195, MPV 12.1 H, Immature Gran % (Auto) 0.500, Neut % (Auto) 77.8 H, Lymph % (Auto) 13.3 L, [place] % (Auto) 7.6, Eos % (Auto) 0.6, Baso % (Auto) 0.2, Absolute Neuts (auto) 6.8, Absolute Lymphs (auto) 1.16, Nucleated RBC % 0, PT 15.7 H, INR 1.3, APTT 35.2, Sodium 135 L, Potassium 3.5, Chloride 103, Carbon Dioxide 25.0, Anion Gap 7, BUN 52 H, Creatinine 1.91 H, Estim Creat Clear Calc 30.90, Est GFR (MDRD) Af Amer 33 L, Est GFR (MDRD) Non-Af 27 L, BUN/Creatinine Ratio 27.2 H, Glucose 157 H, Lactic Acid 1.0, Calcium 8.4 L, Total Bilirubin 0.40, Direct Bilirubin 0.15, AST 8 L, ALT 13, Alkaline Phosphatase 84, Troponin I High Sens 186 H*, Total Protein 7.1, Albumin 3.1 L, Globulin 4.0 02/13/24 22:17: Urine Color Yellow, Urine Clarity Clear, Urine pH 6.0, Ur Specific [place] 1.010, Urine Protein 15 H, Urine Glucose (UA) Normal, Urine Ketones Negative, Urine Occult Blood 10 H, Urine Nitrite Negative, Urine Bilirubin Negative, Urine Urobilinogen Normal, Ur Leukocyte Esterase 100 H, Urine RBC 0 SEEN, Urine WBC 0-5 SEEN, Ur Squamous Epith Cells 0 SEEN, Urine Bacteria 0 SEEN, Urine Mucus 0 SEEN Micro: Microbiology 02/13/24 21:05 Mucosa - Nose SARS-CoV-2, Influenza & RSV (PCR) - Final 02/13/24 21:31 Stool Stool Occult Blood (LASHAUN) - Final Occult Blood Positive Imaging Radiology Impression Chest X-Ray 02/13/24 21:03 IMPRESSION: Bibasilar interstitial process with Mary B-lines present, confluent the left lung base, suggesting pulmonary edema given venous congestion and cardiomegaly. Infectious etiology is not excluded. Electronically Signed: Bo Montiel MD at 22:42 EDT , Assessment & Plan Assessment/Plan (1) Acute GI bleeding: (2) Elevated troponin: (3) Acute blood loss anemia: (4) FUO (fever of unknown origin): PLAN: Plan The patient is an 78 y/o F w/ PMHx: Chronic Pulmonary HTN, Morbid obesity, GERD, Hx GI bleed w/ Colonic AVMs s/p prior clipping/cauterizations not felt candidate for surgical management, Chronic anemia/Fe deficiency anemia following with Hematology with IV Fe/PRBC transfusion needs routinely, Valvular Heart Disease s/p AVR, AARTI, Hx VTE, Chronic AF, Diabetes mellitus type II, HFpEF, Chronic Kidney Disease Stage IV per GFR trending with chart previous noted history of CKD stage IIIb who presents to the [facility] ED on 02/13/24 with history of recent outpatient labs noted to be abnormal with patient evaluation the day prior for evaluation of fatigue, malaise and reportedly fever placed on amoxicillin with lab draw at that time hemoglobin 7.8 with redraw of her labs today noted to be decreased down to 7.4 with WBC and platelets within normal limits and reports unchanged dark appearing stool which is common for her given iron supplementation with no recent URI type symptoms but dyspnea worse with exertion. #1. Acute GI Bleed w/ resultant Acute Blood Loss Anemia on chronic anemia/iron deficiency anemia w/ Hx prior GI bleeds w/ Hx Colonic AVMs s/p prior multiple clippings and cauterizations at [facility] not felt candidate for surgical management: Admission hemoglobin 7.0, MCV 92.5 with positive stool guaiac, prior to this 02/13/2024 hemoglobin 7.4?prior to this 02/12/2024 hemoglobin 7.8 trending down from 12/11/2023 hemoglobin 10.9, prior baseline in 2022 had been 7-8 primarily, will admit to [facility], maintain on judicious IVF, obtain serial H+H s, continue with plan to type and cross for 2 u PRBC administration, maintain on IV PPI drip, no cirrhotic history thus will defer any prophylactic antibiotic therapy, given AVM history will place on octreotide to be cautious, gastroenterology consulted, pending. Given history of bleeding location will also initiate bowel prep. Will allow clears until midnight with n.p.o. status following. Continue iron oral supplementation. #2. Elevated cardiac enzyme suspected secondary to demand ischemia type II secondary to acute presentation #1: EKG in ED w/ with AF rate controlled, CXRchest x-ray w/ bibasilar interstitial process, confluent the left lung base, suggesting pulmonary edema given venous congestion and cardiomegaly, infectious etiology is not excluded but does not appear overloaded and BNP pending, initial trop elevated 186. Will maintain on a monitored bed, continue serial cardiac enzymes and EKGs. Obtain magnesium level upon admission. Given acute presentation #1 will defer any Lovenox or heparin. Will also temporarily hold aspirin therapy. Continue medical management as BP allows. Patient is not on statin therapy secondary to intolerance. ECHO requested. Pending enzyme trending may certainly consider cardiology involvement but again likely secondary to #1. #3. 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 Patient with no back pain as does have history of previous discitis, no abdominal pain. CBC with no marked WC elevation or left shift and afebrile upon current presentation, procalcitonin will be requested, blood culture x 2 pending per ED, rapid SARS COVID/influenza/RSV PCR negative, will obtain full respiratory viral panel to be cautious, continue evaluation and treatment as noted above. #4. Valvular heart disease: Status post TAVR (Navarrete CP and S3 in 2019), 06/11/2023 echocardiogram with LVEF 70?5%, LV systolic function normal, grade 3 LV diastolic dysfunction, RV normal size, RV systolic function normal, severely dilated LA, moderately dilated RA, Navarrete JONES prosthetic aortic valve size #26 present with no aortic valve regurgitation, peak gradient 39 mmHg, mean gradient 23 mmHg and dimensionless valve index 0.59. #5. HFpEF: 06/11/2023 echocardiogram with LVEF 70?5%, LV systolic function normal, grade 3 LV diastolic dysfunction, RV normal size, RV systolic function normal, severely dilated LA, moderately dilated RA, Navarrete JONES prosthetic aortic valve size #26 present. As noted plan repeat echocardiogram given elevated cardiac enzymes. Given presentation with GI bleed holding aspirin therapy, statin intolerance noted, clarifying but per current list is not on beta-blockers (Hx bradycardia) or MARIE inhibitor/ARB continue Lasix as BP allows, Judiciously hydrating and as noted plan PRBC administration this will continue to closely monitor. Despite CXR read does not appear to be in failure but will obtain BNP. Will have lasix IV x 1 to administer between PRBC units. #6. History of Diabetes mellitus type II: Clarifying if patient is on regimen but per current list does not appear to be the case with prior remote HgbA1c 2018 4.6%, no recent hemoglobin A1c, given presentation as noted will allow clears until midnight with n.p.o. status following, maintain on accu checks w/ ISS. HgBA1c pending. #7. Hypertension: Will cautiously monitor blood pressure given acute presentation with GI bleed with hold on amlodipine, Lasix if needed, as needed IV hydralazine. #8. Hyperlipidemia: Noted statin intolerance, FLP in AM. #9. Chronic Kidney Disease Stage IV per GFR trending with chart previous noted history of CKD stage IIIb: Admission BUN/Cr 52/1.91, baseline renal function more recently has been 1.7-2.0, repeat BMP in AM. #10. Chronic persistent atrial fibrillation: Per current list does not appear to be on rate or rhythm agent (Hx bradycardia noted in prior cardiology notes with noted prior metoprolol use with eventual discontinuation) nor anticoagulant therapy because of previous GI bleed. Currently still an ongoing evaluation for possible future Watchman. Per 02/11/24 Cardiology note she is supposed to again be evaluated with electrophysiology team to discern decision regarding watchman placement. #11. GERD: Given presentation transition to IV PPI as noted. #12. History of VTE: Patient status post IVC filter 09/2018 with history of previous chronic GI bleed noted in chart likely etiology, not chronically anticoagulated. #13. Morbid Obesity: Weight loss and lifestyle changes encouraged. #14. Chronic pulmonary hypertension: Continue on sildenafil, following with pulmonary medicine Dr. Avila, encourage continued outpatient follow-up. As previously arranged #15. AARTI: CPAP nightly. #16. DVT prophylaxis: SCDs. #17. CODE status: Patient MELLISA is her and living will is currently in place. Discussed CODE status at length including difference between FULL code, DNR-CCA and DNR-CC status. Following discussions about the differences in these status, requested Full Code status. Advanced Care Planning Face to Face Time: 16 minutes. Charges/Coding Visit Charges Inpatient E&M: 09633 Init Hosp L3 Procedures Hospitalists Procedures: 91242 Advncd Care Plan 30 Min
--- NOTE | 2024-02-13 23:32 | ED.RN ---
The pt administered her own Sildenafil at 2330. Dr Walker gave verbal permission for pt to take it.
[2024-02-14] VITALS (27 sets, daily range): BP systolic 113–169; BP diastolic 36–67; PULSE 61–95; RESP 12–33; TEMP 36.7–37.9; O2SAT 87–98; BMI 42.0; BMI 42.5
[2024-02-14 00:10] LABS: Magnesium 2.3 mg/dL (1.6-2.6)
[2024-02-14 00:20] LABS: BNP,B-Type NATRIURETIC PEPTIDE 214.3 pg/mL (0-100)
[2024-02-14 00:28] LABS: Procalcitonin 0.46 ng/mL (0.00-0.09)
--- NOTE | 2024-02-14 00:38 | ECHOCS_ITS ---
Reason For Study: NSTEMI Procedure This was a 2D Doppler, Color Flow transthoracic echocardiogram. The study was technically difficult. Contrast injection was performed. Exam performed portable in patient room. Left Ventricle Normal LV size. The estimated ejection fraction is 65 %. No evidence for diastolic dysfunction. No regional wall motion abnormalities noted. Right Ventricle Normal RV size. Normal systolic function. Atria There is moderate biatrial dilatation. No doppler evidence for ASD. Mitral Valve There is no mitral valve stenosis. Trivial mitral valve insufficiency. Tricuspid Valve There is no tricuspid stenosis. Trivial tricuspid valve insufficiency. Unable to estimate RV systolic pressure due to insufficient tricuspid regurgitant envelope. Aortic Valve There is no aortic stenosis. No aortic valve insufficiency. TAVR valve appears to be well-seated and functioning appropriately. Pulmonic Valve There is no pulmonic valvular stenosis. No pulmonic valve insufficiency. Great Vessels Normal aortic root. Pericardium/Pleural No pericardial effusion. Medication Diluted definity 3ml given slow IV push to enhance endocardial definition. MMode/2D Measurements & Calculations LVIDd: 5.4 cm IVSd: 1.4 cm LVOT diam: 2.0 cm LVIDs: 3.4 cm LVPWd: 1.2 cm RVDd: 4.3 cm FS: 37.3 % LVOT area: 3.1 cm2 Ao root diam: 3.5 cm LAV(MOD-bp): 127.3 ml LA A4 area: 37.2 cm2 LA dimension: 5.7 cm LAV(MOD-bp) Indexed: 56.9 ml/m2 LAV(MOD-sp2): 111.8 ml LAV(MOD-sp4): 138.6 ml TAPSE: 2.0 cm RA A4 area: 35.1 cm2 Time Measurements MV dec time: 0.20 sec Doppler Measurements & Calculations MV E max pavel: 163.3 cm/sec MV V2 max: 187.8 cm/sec MV P1/2t max pavel: 188.7 cm/sec MV max P.1 mmHg MV P1/2t: 99.1 msec MV V2 mean: 88.5 cm/sec MV mean P.3 mmHg MV dec slope: 557.9 cm/sec2 MV V2 VTI: 48.2 cm MVA(P1/2t): 2.2 cm2 MVA(VTI): 2.2 cm2 Ao V2 max: 318.2 cm/sec LV V1 max: 136.8 cm/sec MR max pavel: 581.6 cm/sec Ao max P.6 mmHg LV V1 max P.5 mmHg MR max P.3 mmHg Ao V2 mean: 224.0 cm/sec LV V1 mean P.8 mmHg MR mean pavel: 468.1 cm/sec Ao mean P.3 mmHg LV V1 mean: 104.5 cm/sec MR mean P.7 mmHg Ao V2 VTI: 77.4 cm LV V1 VTI: 34.2 cm MR VTI: 195.1 cm AV (velocity ratio): 0.44 ALONSO(I,D): 1.4 cm2 ALONSO(V,D): 1.3 cm2 SV(LVOT): 105.0 ml PA V2 max: 139.6 cm/sec TR max pavel: 322.4 cm/sec PA max PG (full): 3.5 mmHg TR max P.6 mmHg PA V2 mean: 96.0 cm/sec PA mean PG (full): 2.0 mmHg ECHO/Echo Complete W/ Contrast Interpretation Summary The estimated ejection fraction is 65 %. No evidence for diastolic dysfunction. Trivial mitral valve insufficiency. There is moderate biatrial dilatation. Ordering Physician: Nohemi Walker Performed By: Dany Triplett RCS
[2024-02-14] MEDS: Furosemide 40 MG/4 ML Vial IV ×4 (01:37→23:14)
[2024-02-14] MEDS: Octreotide 0.5 MG in Dextrose 5%-Water (250mL Bag) 249 ML 25 MG CONT INF ×3 (01:52→21:54)
[2024-02-14] MEDS: Bisacodyl 5 MG Tablet 20 MG PO (01:53)
[2024-02-14] MEDS: Pantoprazole Sodium 80 MG in 0.9% Normal Saline (100mL Bag) 80 ML 10 MG CONT INF ×3 (01:56→21:54)
[2024-02-14 02:33] LABS: Troponin-I HS 189 pg/mL (3.0-54.0)
[2024-02-14 03:18] LABS: Bedside Glucose 113 mg/dL (74-106)
[2024-02-14] MEDS: Polyethylene Glycol 3350 BOWEL PREP PO (03:53)
[2024-02-14] MEDS: 0.9% Saline Lock 10 ML Syringe IV ×2 (03:53→23:14)
[2024-02-14] MEDS: 0.9% Normal Saline (1000mL) 1,000 ML 75 ML IV (05:00)
[2024-02-14 06:35] LABS: Absolute Lymphocyte Count 0.75 X10^3/uL (0.83-4.51); Absolute Neutrophil Count 9.1 X10^3/uL (2.0-7.7); Basophil# 0.04 X10^3/uL; Basophil% 0.4 % (0-1); Eosinophil# 0.04 X10^3/uL; Eosinophils% 0.4 % (0-5); Hematocrit 28.6 % (37-47); Hemoglobin 9.1 g/dL (12.0-15.0); Lymphocyte # 0.75 X10^3/ul (0.83-4.51); Lymphocyte % 7.1 % (19-41); Mean Corp Hgb Conc 31.8 g/dL (32-36); Mean Corpuscular Hgb 28.9 pg (27.0-32.0); Mean Corpuscular Volume 90.8 fL (81-99); Mean Platelet Vol. 11.6 fl (6.2-12.0); Monocyte# 0.62 X10^3/uL; Monocyte% 5.8 % (0-10); NRBC Flagged by Analyzer 0 % (0-5); Neutrophil # 9.13 X10^3/uL (2.7-7.7); Neutrophil % 85.8 % (47-70); Platelet Count 196 K/mm3 (150-450); RBC Distribution Width CV 13.2 % (11.6-14.6); RBC Distribution Width SD 43.9 fl (35.1-43.9); Red Blood Count 3.15 M/mm3 (4.2-5.4); White Blood Count 10.6 K/mm3 (4.4-11.0)
[2024-02-14 06:51] LABS: Bedside Glucose 168 mg/dL (74-106)
[2024-02-14 06:58] LABS: Partial Thromboplast Time 40.3 Seconds (24.1-36.2)
[2024-02-14 07:13] LABS: ALB/GLOB Ratio 0.8 RATIO (0.9-2.4); AST(SGOT) 8 U/L (15-37); Alanine Aminotransfer ALT/SGPT 12 U/L (13-56); Albumin, Serum 3.3 g/dL (3.2-5.0); Alkaline Phosphatase 91 U/L (45-117); Anion Gap 9 (5-15); BUN 48 mg/dL (7-18); BUN/Creat Ratio 27.7 RATIO (10-20); Calcium,Total 9.1 mg/dL (8.5-10.1); Chloride 103 mmol/L (98-107); Cholesterol 132 mg/dL (200); Creatinine, Serum 1.73 mg/dL (0.55-1.02); EST Glomerular Filtration Rate 30 mL/min (>60); Est Glom Filt Rate - Afr Amer 36 mL/min (>60); Estimated Creatinine Clearance 33.91 ml/min; Globulin 4.1 g/dL (2.2-4.2); Glucose 184 mg/dL (74-106); High Density Lipoprotein 26 mg/dL; Potassium 3.9 mmol/L (3.5-5.1); Protein, Total 7.4 g/dL (6.4-8.2); Sodium Level 135 mmol/L (136-145); Triglycerides 108 mg/dL; Very Low Density Lipoprotein 22 mg/dL (5-40)
--- NOTE | 2024-02-14 07:34 | PN.HOSP_ITS ---
Reason for Visit Reason for Visit: Diagnoses Acute posthemorrhagic anemia (02/13/24) Gastrointestinal hemorrhage, unspecified (02/13/24) Fever, unspecified (02/13/24) Other specified abnormal findings of blood chemistry (02/13/24) Subjective Subjective Feeling well. No new coplaints. No hematochezia/melena. Objective Data Objective Data Vital Signs: Vital Signs Temp Pulse Resp BP Pulse Ox O2 Del Method O2 Flow Rate 36.9 C 65 18 158/63 H 93 Nasal Cannula 2 02/14/24 06:27 02/14/24 06:27 02/14/24 06:27 02/14/24 06:27 02/14/24 06:27 02/14/24 06:02/14/24 06:27 Oxygen Flow Rate (L/min) 2 Oxygen Delivery Method Nasal Cannula Weight: 118.115 kg Body Mass Index (BMI) 42.0 Intake & Output: Intake and Output for Last 24 Hours 02/12/24 02/13/24 02/14/24 23:59 23:59 23:59 Intake Total 0 / 0 17.5 / 17.5 Balance 0 / 0 17.5 / 17.5 Lab / Micro Data 02/14/24 08:40 02/14/24 06:19 Labs: Laboratory Results - last 24 hr 02/13/24 21:05: WBC 8.7, RBC 2.40 L, Hgb 7.0 L, Hct 22.2 L, MCV 92.5, MCH 29.2, MCHC 31.5 L, RDW Std Deviation 43.9, RDW Coeff of Fariba 13.0, Plt Count 195, MPV 12.1 H, Immature Gran % (Auto) 0.500, Neut % (Auto) 77.8 H, Lymph % (Auto) 13.3 L, [place] % (Auto) 7.6, Eos % (Auto) 0.6, Baso % (Auto) 0.2, Absolute Neuts (auto) 6.8, Absolute Lymphs (auto) 1.16, Nucleated RBC % 0, PT 15.7 H, INR 1.3, APTT 35.2, Sodium 135 L, Potassium 3.5, Chloride 103, Carbon Dioxide 25.0, Anion Gap 7, BUN 52 H, Creatinine 1.91 H, Estim Creat Clear Calc 30.90, Est GFR (MDRD) Af Amer 33 L, Est GFR (MDRD) Non-Af 27 L, BUN/Creatinine Ratio 27.2 H, Glucose 157 H, Lactic Acid 1.0, Calcium 8.4 L, Magnesium 2.3, Total Bilirubin 0.40, Direct Bilirubin 0.15, AST 8 L, ALT 13, Alkaline Phosphatase 84, Troponin I High Sens 186 H*, B-Natriuretic Peptide 214.3 H, Total Protein 7.1, Albumin 3.1 L, Globulin 4.0 02/13/24 22:17: Urine Color Yellow, Urine Clarity Clear, Urine pH 6.0, Ur Specific [place] 1.010, Urine Protein 15 H, Urine Glucose (UA) Normal, Urine Ketones Negative, Urine Occult Blood 10 H, Urine Nitrite Negative, Urine Bilirubin Negative, Urine Urobilinogen Normal, Ur Leukocyte Esterase 100 H, Urine RBC 0 SEEN, Urine WBC 0-5 SEEN, Ur Squamous Epith Cells 0 SEEN, Urine Bacteria 0 SEEN, Urine Mucus 0 SEEN, Blood Type A POSITIVE, Antibody Screen NEGATIVE, Crossmatch See Detail 02/13/24 23:28: Procalcitonin 0.46 H 02/14/24 01:28: POC Glucose 113 H 02/14/24 01:50: Troponin I High Sens 189 H* 02/14/24 06:19: WBC 10.6, RBC 3.15 L, Hgb 9.1 L, Hct 28.6 L, MCV 90.8, MCH 28.9, MCHC 31.8 L, RDW Std Deviation 43.9, RDW Coeff of Fariba 13.2, Plt Count 196, MPV 11.6, Immature Gran % (Auto) 0.500, Neut % (Auto) 85.8 H, Lymph % (Auto) 7.1 L, [place] % (Auto) 5.8, Eos % (Auto) 0.4, Baso % (Auto) 0.4, Absolute Neuts (auto) 9.1 H, Absolute Lymphs (auto) 0.75 L, Nucleated RBC % 0, APTT 40.3 H, Sodium 135 L, Potassium 3.9, Chloride 103, Carbon Dioxide 23.0, Anion Gap 9, BUN 48 H, C reatinine 1.73 H, Estim Creat Clear Calc 33.91, Est GFR (MDRD) Af Amer 36 L, Est GFR (MDRD) Non-Af 30 L, BUN/Creatinine Ratio 27.7 H, Glucose 184 H, Calcium 9.1, Total Bilirubin 0.70, AST 8 L, ALT 12 L, Alkaline Phosphatase 91, Total Protein 7.4, Albumin 3.3, Globulin 4.1, Albumin/Globulin Ratio 0.8 L, Triglycerides 108, Cholesterol 132, LDL Cholesterol 84, VLDL Cholesterol 22, HDL Cholesterol 26 L 02/14/24 06:24: POC Glucose 168 H Micro: Microbiology 02/13/24 23:05 Mucosa - Nose Respiratory Panel (PCR) - Final 02/13/24 21:05 Mucosa - Nose SARS-CoV-2, Influenza & RSV (PCR) - Final 02/13/24 21:31 Stool Stool Occult Blood (LASHAUN) - Final Occult Blood Positive Radiography Diagnostic Testing: Radiology Impression Chest X-Ray 02/13/24 21:03 IMPRESSION: Bibasilar interstitial process with Mary B-lines present, confluent the left lung base, suggesting pulmonary edema given venous congestion and cardiomegaly. Infectious etiology is not excluded. 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 Octreotide * GI consult Acute Blood Loss Anemia on chronic anemia/iron deficiency anemia * Admission hemoglobin 7.0, positive stool guaiac, * plan to type and cross for 2 u PRBC administration NSTEMI * suspect type II * echo pending * ASA held given GIB Acute HFpEF: * 06/11/2023 echocardiogram with LVEF 70?5%, LV systolic function normal, grade 3 LV diastolic dysfunction, RV normal size, RV systolic function normal, severely dilated LA, moderately dilated RA, [place]arrete JONES prosthetic aortic valve size #26 present. * Repeat echo ordered. * Received 1 time dose of IV furosemide. Continue daily furosemide 40/d PO. General malaise * unclear etiology. May be due to anemia. * respiratory panel pending. COVID 19, influenza and RSV negative. * BCx pending. Chronic conditions: * Valvular heart disease: * Diabetes mellitus type II: stable. SSI. * Hypertension: continue amlodipine. * Hyperlipidemia: Noted statin intolerance, FLP in AM. * Chronic Kidney Disease Stage IV: stable. Monitor * Chronic persistent atrial fibrillation: stable. Not on anticoagulation given GI bleed. Currently still an ongoing evaluation for possible future Watchman. Per 02/11/24 Cardiology note she is supposed to again be evaluated with electrophysiology team to discern decision regarding watchman placement. * GERD: Given presentation transition to IV PPI as noted. 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 * Obesity class III: Weight loss and lifestyle changes encouraged. * Chronic pulmonary hypertension: Continue on sildenafil, following with pulmonary medicine Dr. Nelson, encourage continued outpatient follow-up. As previously arranged * AARTI: CPAP nightly. DVT prophylaxis: SCDs. Full Code. Charges/Coding Visit Charges Inpatient E&M: 09428 Subs Hosp L2
[2024-02-14 07:47] LABS: Troponin-I HS 154 pg/mL (3.0-54.0)
--- NOTE | 2024-02-14 08:04 | CASEMGMT ---
Social Work- Pt has a a copy of HCPOA in chart naming Foster, , and Rhianna, daughter, as agents. HEATHER Gilliland
[2024-02-14 10:01] LABS: Hematocrit 26.9 % (37-47); Hemoglobin 8.9 g/dL (12.0-15.0)
--- NOTE | 2024-02-14 10:55 | CASEMGMT ---
RN CM Face to Face with patient for initial transition planning/care coordination assessment. RN CM introduced self and role at [facility]. Patient lying in bed, alert and oriented, at bedside. Patient willing to participate in assessment and is able to answer all questions appropriately. Care providers, pharmacy, and demographics verified. PCP: Max SANABRIA Specialists: Kai, trigonometry teacher; Erin, navy material inspector; Breanne, housekeeping cleaner [facility]; [facility] retail at discharge. Insurance: [facility], MMO Prescription Benefit: yes Living Will/HPOA: yes, Foster Singh LNOK: Living Arrangements: Patient lives with in a single story home with 2 steps and railing to enter the home. Patient states she is independent at home. Transportation: self, DME/HHC: Patient has shower chair, BSC, raised toilet, cane, grab bars, walker, wheelchair, cpap, nebuizler, pulse ox, and home oxygen at with [employer]. Patient has had [facility] in the past. Patient has been to [facility] in the past. Patient wishes to discharge home, denies need for home health at this time. Patient states he has no further needs or concerns at this time. CM to follow for discharge planning needs that may arise. Disposition Plan: Patient to discharge home with family support and follow-up plans in place. Will monitor for increase in home oxygen. Elizabeth RUIZ, RN, CM
[2024-02-14] MEDS: Electrolyte Solution/Peg's 4000 ML 2000 ML PO (11:34)
[2024-02-14 11:57] LABS: Bedside Glucose 160 mg/dL (74-106)
--- NOTE | 2024-02-14 15:39 | CHAPLAIN ---
Type of Pastoral Visit ___ Initial Visit ___ Follow-up Visit ___ On-call Visit ___ General Patient Visit ___ Spiritual Assessment ___ Family Conference ___ Bereavement ___ Rapid Response ___ Code Blue ___ Other (describe below) Pastoral Care Referral From ___ Patient ___ Family ___ Nurse ___ Physician ___ Senior Catering Sales Manager ___ Contact Center Rep ___ Other (describe below) Sacrament/Intervention ___ Active listening ___ Anointing ___ Synagogue ___ Bereavement ___ Communion ___ Brynn exploration ___ ___ Life review ___ Prayer ___ Reconciliation ___ Sacrament of Sick ___ Supportive presence ___ Wedding ___ Other (describe below) Pastoral Comments patient was on the bi-pap and sleeping so was not disturbed
[2024-02-14 16:50] LABS: Bedside Glucose 158 mg/dL (74-106)
--- NOTE | 2024-02-14 17:19 | CON.PCM.GI_ITS ---
HPI Consult Data Date of Consult: 02/14/24 HPI Narrative Reason for Consultation: GI bleed HPI Narrative: KAMI ROLLE, is a 78 y/o F presented to the ED with lower GI bleed. She has a past medical history of Chronic Pulmonary HTN, Morbid obesity, GERD, Hx GI bleed w/ Colonic AVMs s/p prior clipping/cauterizations not felt candidate for surgical management. She also has a past medical history of chronic anemia/Fe deficiency anemia following with Hematology with IV Fe/PRBC transfusion needs routinely. She is seen by cardiology for Valvular Heart Disease s/p AVR, AARTI, Hx VTE, Chronic AF, Diabetes mellitus type II, HFpE. She was also determined to have Chronic Kidney Disease Stage IV per GFR trending with chart previous noted history of CKD stage IIIb. She has been complaining of fatigue, malaise and reportedly fever placed on amoxicillin with lab draw at that time hemoglobin 7.8 with redraw of her labs today noted to be decreased down to 7.4 with WBC and platelets within normal limits and reports unchanged dark appearing stool which is common for her given iron supplementation with no recent URI type symptoms but dyspnea worse with exertion. She denies any abdominal pain or cramping. She denies any recent weight gain, orthopnea or increased peripheral edema. Workup in the ED included T98.4, heart rate 74, BP 141/58, respiratory rate 20, 99% on room air, CBC with WBC 8.7, hemoglobin 7.0, MCV 92.5, platelet 195 without marked shift, coags unremarkable aside PT 15.7, CMP with sodium 135, BUN/creatinine 52/1.91, GFR 27, glucose 157, hepatic profile not marked appearing, troponin initial 186, lactic acid 1.0, chest x-ray w/ bibasilar interstitial process, confluent the left lung base, suggesting pulmonary edema given venous congestion and cardiomegaly, infectious etiology is not excluded [facility] Medical History Pneumonia COVID-19 Obstructive sleep apnea Chronic kidney disease, stage 3b Pleural effusion on left 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 halfway (current) use of anticoagulants Anemia of chronic renal failure, stage 3 (moderate) Nonobstructive atherosclerosis of coronary artery Longstanding persistent atrial fibrillation Acute blood loss anemia (09/24/20) Iron deficiency anemia due to chronic blood loss Chronic GI bleeding Chronic diastolic (congestive) heart failure Type 2 diabetes mellitus Essential (primary) hypertension Presence of IVC filter (09/2018) Anemia in chronic kidney disease (CKD) Acute kidney injury Bloody stool Knee pain Anemia Arthritis Hyperkalemia Non-ST elevation (NSTEMI) myocardial infarction (12/09/16) Nonrheumatic aortic (valve) stenosis Nonrheumatic mitral (valve) insufficiency Nonrheumatic tricuspid (valve) insufficiency Other secondary pulmonary hypertension Sepsis secondary to UTI Fatigue History of pneumonia Osteopenia Liver disease History of GI bleed Diverticulitis History of blood transfusion Morbid obesity Iron deficiency anemia Hyperlipidemia Home Medications ?Medication ?Instructions ?Recorded ?Last Taken ?Type sildenafil (pulm.hypertension) 20 20 mg PO TID PULMONARY HTN 11/18/17 02/13/24 23:30 History mg tablet magnesium 250 mg tablet 250 mg PO DAILY SUPPLEMENT 10/09/18 02/12/24 History ferrous sulfate 325 mg (65 mg 325 mg PO BID SUPPLEMENT 04/14/19 02/13/24 History iron) tablet (Melissa-Time) ascorbic acid (vitamin C) 500 mg 500 mg PO DAILY SUPPLEMENT 05/10/20 02/13/24 History capsule cyanocobalamin (vitamin B-12) 2,500 mcg sublingual QODAY 05/10/20 02/12/24 History 2,500 mcg sublingual lozenge SUPPLEMENT pantoprazole 40 mg tablet,delayed 40 mg PO DAILY ACID REFLUX 03/06/21 02/13/24 History release furosemide 40 mg tablet 40 mg PO DAILY CHF #30 tabs 07/30/23 Unknown Rx cholecalciferol (vitamin D3) 50 50 mcg PO DAILY supplement 08/08/23 02/13/24 History mcg (2,000 unit) capsule amlodipine 10 mg tablet 10 mg PO DAILY BLOOD PRESSURE #90 12/11/23 02/13/24 Rx tabs Allergy/AdvReac Type Severity Reaction Status Date / Time pravastatin AdvReac Severe severe Verified 02/13/24 20:15 muscle and joint pain Family History Mother , age 83 Uterine cancer Hypertension Father , age 81 Heart disease Diabetes CAD (coronary artery disease) Hypertension Surgical History History of hysterectomy History of root canal procedure H/O aortic valve replacement (09/15/18) coil embolization of colonic artery History of left heart catheterization (LHC) (04/10/17) Status post right foot surgery History of hysterectomy History of appendectomy Social History household members: spouse housing: house Smoking Status: Never smoker alcohol intake: never substance use type: does not use caffeine: No what type of physical activity do you participate in: none divina/baptist: Mennonite seatbelt use: always do you feel safe at home: Yes ROS ROS Narrative Admission Review of Systems: CONSTITUTIONAL: No weight loss, chills. + Fever, weakness or fatigue. HEENT: Eyes: No visual loss, blurred vision, double vision or yellow sclerae. Ears, Nose, Throat: No hearing loss, sneezing, congestion, runny nose or sore throat. SKIN: No rash or itching, lesions, wounds. CARDIOVASCULAR: No chest pain, chest pressure or chest discomfort, palpitations, edema, orthopnea, syncopal events. RESPIRATORY: + Dyspnea, worse with exertion. No marked cough or sputum, wheezing, hemoptysis. GASTROINTESTINAL: + Chronically dark appearing stools. No anorexia, nausea, vomiting or diarrhea, abdominal pain, melena, BRBPR. GENITOURINARY: No dysuria, frequency, urgency or retention. NEUROLOGICAL: No headache, dizziness, syncope, paralysis, ataxia, numbness or tingling in the extremities, focal weakness, change in bowel or bladder control, seizure. MUSCULOSKELETAL: + muscle, back pain, joint pain or stiffness. HEMATOLOGIC: + Chronic anemia, easy bleeding/bruising, history of chronic GI bleed. LYMPHATICS: No enlarged nodes. No history of splenectomy. PSYCHIATRIC: No history of anxiety or depression. ENDOCRINOLOGIC: No reports of sweating, cold or heat intolerance. No polyuria or polydipsia. ALLERGIES: No history of asthma, hives, eczema or rhinitis. Physical Exam Const alert and no apparent distress Resp normal respiratory effort, no retractions, no use of accessory muscles and clear to auscultation bilaterally Cardio regular rate, regular rhythm, S1 normal heart sound and S2 normal heart sound Extremity normal to inspection Neuro Sensorium / Orientation: awake and alert Lab / Micro Data 02/14/24 08:40 02/14/24 06:19 Labs: Laboratory Results - last 24 hr 02/13/24 21:05: WBC 8.7, RBC 2.40 L, Hgb 7.0 L, Hct 22.2 L, MCV 92.5, MCH 29.2, MCHC 31.5 L, RDW Std Deviation 43.9, RDW Coeff of Fariba 13.0, Plt Count 195, MPV 12.1 H, Immature Gran % (Auto) 0.500, Neut % (Auto) 77.8 H, Lymph % (Auto) 13.3 L, [place] % (Auto) 7.6, Eos % (Auto) 0.6, Baso % (Auto) 0.2, Absolute Neuts (auto) 6.8, Absolute Lymphs (auto) 1.16, Nucleated RBC % 0, PT 15.7 H, INR 1.3, APTT 35.2, Sodium 135 L, Potassium 3.5, Chloride 103, Carbon Dioxide 25.0, Anion Gap 7, BUN 52 H, Creatinine 1.91 H, Estim Creat Clear Calc 30.90, Est GFR (MDRD) Af Amer 33 L, Est GFR (MDRD) Non-Af 27 L, BUN/Creatinine Ratio 27.2 H, Glucose 157 H, Lactic Acid 1.0, Calcium 8.4 L, Magnesium 2.3, Total Bilirubin 0.40, Direct Bilirubin 0.15, AST 8 L, ALT 13, Alkaline Phosphatase 84, Troponin I High Sens 186 H*, B-Natriuretic Peptide 214.3 H, Total Protein 7.1, Albumin 3.1 L, Globulin 4.0 02/13/24 22:17: Urine Color Yellow, Urine Clarity Clear, Urine pH 6.0, Ur Specific [place] 1.010, Urine Protein 15 H, Urine Glucose (UA) Normal, Urine Ketones Negative, Urine Occult Blood 10 H, Urine Nitrite Negative, Urine Bilirubin Negative, Urine Urobilinogen Normal, Ur Leukocyte Esterase 100 H, Urine RBC 0 SEEN, Urine WBC 0-5 SEEN, Ur Squamous Epith Cells 0 SEEN, Urine Bacteria 0 SEEN, Urine Mucus 0 SEEN, Blood Type A POSITIVE, Antibody Screen NEGATIVE, Crossmatch See Detail 02/13/24 23:28: Procalcitonin 0.46 H 02/14/24 01:28: POC Glucose 113 H 02/14/24 01:50: Troponin I High Sens 189 H* 02/14/24 06:19: WBC 10.6, RBC 3.15 L, Hgb 9.1 L, Hct 28.6 L, MCV 90.8, MCH 28.9, MCHC 31.8 L, RDW Std Deviation 43.9, RDW Coeff of Fariba 13.2, Plt Count 196, MPV 11.6, Immature Gran % (Auto) 0.500, Neut % (Auto) 85.8 H, Lymph % (Auto) 7.1 L, [place] % (Auto) 5.8, Eos % (Auto) 0.4, Baso % (Auto) 0.4, Absolute Neuts (auto) 9.1 H, Absolute Lymphs (auto) 0.75 L, Nucleated RBC % 0, APTT 40.3 H, Sodium 135 L, Potassium 3.9, Chloride 103, Carbon Dioxide 23.0, Anion Gap 9, BUN 48 H, C reatinine 1.73 H, Estim Creat Clear Calc 33.91, Est GFR (MDRD) Af Amer 36 L, Est GFR (MDRD) Non-Af 30 L, BUN/Creatinine Ratio 27.7 H, Glucose 184 H, Calcium 9.1, Total Bilirubin 0.70, AST 8 L, ALT 12 L, Alkaline Phosphatase 91, Troponin I High Sens 154 H*, Total Protein 7.4, Albumin 3.3, Globulin 4.1, Albumin/Globulin Ratio 0.8 L, Triglycerides 108, Cholesterol 132, LDL Cholesterol 84, VLDL Cholesterol 22, HDL Cholesterol 26 L 02/14/24 06:24: POC Glucose 168 H 02/14/24 08:40: Hgb 8.9 L, Hct 26.9 L 02/14/24 11:40: POC Glucose 160 H 02/14/24 16:23: POC Glucose 158 H Micro: Microbiology 02/13/24 23:05 Mucosa - Nose Respiratory Panel (PCR) - Final 02/13/24 21:05 Mucosa - Nose SARS-CoV-2, Influenza & RSV (PCR) - Final 02/13/24 21:31 Stool Stool Occult Blood (LASHAUN) - Final Occult Blood Positive Imaging Radiology Impression Chest X-Ray 02/13/24 21:03 IMPRESSION: Bibasilar interstitial process with Mary B-lines present, confluent the left lung base, suggesting pulmonary edema given venous congestion and cardiomegaly. Infectious etiology is not excluded. Electronically Signed: Bo Montiel MD at 22:42 EDT , Echocardiogram 02/14/24 00:38 Interpretation Summary The estimated ejection fraction is 65 %. No evidence for diastolic dysfunction. Trivial mitral valve insufficiency. There is moderate biatrial dilatation. Ordering Physician: Nohemi Walker Performed By: Dany Triplett RCS Assessment & Plan Assessment/Plan (1) Acute GI bleeding: (2) Elevated troponin: (3) Acute blood loss anemia: (4) FUO (fever of unknown origin): PLAN: Plan 78 y/o F with chronic Pulmonary HTN, Morbid obesity, GERD, Hx GI bleed w/ Colonic AVMs s/p prior clipping/cauterizations. She presents with fatigue, malaise and lower GI bleeding. She was covered to have hemoglobin of 7.8 and redraw was 7.4. 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 She has never had a capsule endoscopy. Differential diagnosis does include upper GI bleed with rapid transit, lower GI bleed all secondary to angiodysplasias. She should undergo upper and lower endoscopy and capsule endoscopy. She was explained alternatives, risk and benefits including outstanding bleeding, infection, sepsis, perforation, need for emergent urgent . She have an ASA of 3. Charges/Coding Visit Charges Inpatient E&M: 09084 Init Hosp L3
[2024-02-14 17:45] LABS: Hemoglobin 8.9 g/dL (12.0-15.0)
[2024-02-14] MEDS: MELATONIN 3 MG TABLET PO (21:54)
[2024-02-14] MEDS: Acetaminophen 325 MG Tablet 650 MG PO (21:54)
[2024-02-14] MEDS: SILDENAFIL CITRATE 20 MG TABLET PO (21:54)
[2024-02-14] MEDS: Ferrous Sulfate 325 MG Tablet PO (21:54)
--- NOTE | 2024-02-14 22:07 | PCM.HOSP.N ---
Hospitalist Note Notified by staff patient with 1/2 thus far + blood cultures with GPC, unclear if chains or clusters and lab notes still running. Will place on IV Vancomycin in the interim.
[2024-02-14] MEDS: Vancomycin HCl 2,000 MG in 0.9% Normal Saline (500mL Bag) 500 ML 250 MG IV (22:48)
--- NOTE | 2024-02-14 22:57 | NURSING ---
pt c/o sob. now on 5l o2, spo2 90-91%, resprs 31-35. wheezes heard fernandez upper & lower lobes a&p; crackles in lower lobes a&p. cps notified. bipap applied and monitored pt for 30-35m. fio2 increased to 35% and settings increased to 12/8. continued to monitor pt. she reported subjective improvement, resprs down to high 20s and spo2 94-96%. since pt now to receive 540ml of vanc +60ml flush concerns for worsening resp status. dr butler notified. lasix 40mg x1 ordered.
--- NOTE | 2024-02-14 23:21 | PCM.RX.CS ---
Consult Antibiotic Management Pharmacy has been consulted to manage selected antibiotic: Vancomycin Type of Intervention Type of Consult: New start Suspected Infection Suspected Infection: Bacteremia Labs Labs: Sodium 135 mmol/L (136-145) L 02/14/24 06:19 Potassium 3.9 mmol/L (3.5-5.1) 02/14/24 06:19 Chloride 103 mmol/L (98-107) 02/14/24 06:19 Carbon Dioxide 23.0 mmol/L (21.0-32.0) 02/14/24 06:19 Anion Gap 9 (5-15) 02/14/24 06:19 BUN 48 mg/dL (7-18) H 02/14/24 06:19 Creatinine 1.73 mg/dL (0.55-1.02) H 02/14/24 06:19 Est GFR (MDRD) Af Amer 36 mL/min (>60) L 02/14/24 06:19 Est GFR (MDRD) Non-Af 30 mL/min (>60) L 02/14/24 06:19 BUN/Creatinine Ratio 27.7 RATIO (10-20) H 02/14/24 06:19 Glucose 184 mg/dL (74-106) H 02/14/24 06:19 Microbiology Microbiology: Microbiology 02/13/24 19:30 Blood Culture (Wb) - Port Blood Culture - Preliminary 02/13/24 23:05 Mucosa - Nose Respiratory Panel (PCR) - Final 02/13/24 21:05 Mucosa - Nose SARS-CoV-2, Influenza & RSV (PCR) - Final 02/13/24 21:31 Stool Stool Occult Blood (LASHAUN) - Final Occult Blood Positive Dosing Weight Weight used for dosin.5 kg Estimated Creatinine Clearance Estimated Creatinine Clearance: 34.2 Goal Trough Goal Trough: 15-20 mcg/mL Pharmacy Plan for Drug Dosing Pharmacy Plan for Drug Dosing: NEW START IV VANCOMYCIN Consulting Physician: Dr. Walker Indication: Empiric / (+) blood cx pending Goal Trough: 15-20 SrCr: 1.73 CrCl: 34.2 ml/min Comments: Loading dose Vancomycin 2000mg x1 given at 22:48 02/14/24 Vancomycin Dose: Vancomycin 1250mg Q24H to start @ 23:00 02/15/24 Pending Level: Vancomycin trough @ 22:30 02/17/24 Pharmacy Service will continue to monitor and adjust dosing as required. Follow-Up Labs Follow-Up Labs: Trough: Vancomycin (22:30 02/17/24)
[2024-02-15] VITALS (27 sets, daily range): BP systolic 100–152; BP diastolic 45–99; PULSE 58–73; RESP 14–31; TEMP 37.1–37.6; O2SAT 86–96; BMI 42.3; BMI 41.5
[2024-02-15 05:42] LABS: Absolute Lymphocyte Count 0.79 X10^3/uL (0.83-4.51); Absolute Neutrophil Count 8.5 X10^3/uL (2.0-7.7); Basophil# 0.04 X10^3/uL; Basophil% 0.4 % (0-1); Eosinophil# 0.03 X10^3/uL; Eosinophils% 0.3 % (0-5); Hematocrit 25.3 % (37-47); Hemoglobin 8.3 g/dL (12.0-15.0); Lymphocyte # 0.79 X10^3/ul (0.83-4.51); Mean Corp Hgb Conc 32.8 g/dL (32-36); Mean Corpuscular Hgb 29.5 pg (27.0-32.0); Mean Platelet Vol. 11.6 fl (6.2-12.0); Monocyte# 0.55 X10^3/uL; Monocyte% 5.5 % (0-10); NRBC Flagged by Analyzer 0 % (0-5); Neutrophil % 85.6 % (47-70); Platelet Count 201 K/mm3 (150-450); RBC Distribution Width CV 13.2 % (11.6-14.6); RBC Distribution Width SD 43.6 fl (35.1-43.9); Red Blood Count 2.81 M/mm3 (4.2-5.4); White Blood Count 9.9 K/mm3 (4.4-11.0)
[2024-02-15 05:56] LABS: Anion Gap 10 (5-15); BUN 36 mg/dL (7-18); BUN/Creat Ratio 23.7 RATIO (10-20); Calcium,Total 8.3 mg/dL (8.5-10.1); Chloride 105 mmol/L (98-107); Creatinine, Serum 1.52 mg/dL (0.55-1.02); EST Glomerular Filtration Rate 35 mL/min (>60); Est Glom Filt Rate - Afr Amer 42 mL/min (>60); Estimated Creatinine Clearance 38.74 ml/min; Glucose 141 mg/dL (74-106); Potassium 3.3 mmol/L (3.5-5.1); Sodium Level 140 mmol/L (136-145)
[2024-02-15] MEDS: SILDENAFIL CITRATE 20 MG TABLET PO ×3 (06:26→21:42)
[2024-02-15 06:30] LABS: Bacteria 0 SEEN /hpf (None Seen); Mucous, Urine 0 SEEN /hpf (<or=2+); Red Blood Cells-Urine 0 SEEN /hpf (0-5); Squamous Epithelial Cells - UA 0 SEEN /hpf (5-10); White Blood Cells 0 SEEN /hpf (0-5)
[2024-02-15 06:32] LABS: Color, Urine Yellow (Yellow); Glucose, Dipstick Normal (Normal); Ketone-Dipstick Negative (Negative); Leukocyte Esterase-Dipstick Negative /ul (Negative); Nitrite-Dipstick Negative (Negative); Occult Blood-Urine 10 /ul (Negative); Protein-Dipstick 15 mg/dl (Negative); Specific Gravity, Urine 1.015 (1.002-1.030); Urine Bilirubin Dipstick Negative (Negative); Urine Clarity Clear (Clear); Urine Urobilinogen Normal (Normal)
--- NOTE | 2024-02-15 07:28 | PN.HOSP_ITS ---
Reason for Visit Reason for Visit: Diagnoses Acute posthemorrhagic anemia (02/13/24) Gastrointestinal hemorrhage, unspecified (02/13/24) Fever, unspecified (02/13/24) Other specified abnormal findings of blood chemistry (02/13/24) Subjective Subjective Breathing better. Objective Data Objective Data Vital Signs: Vital Signs Temp Pulse Resp BP Pulse Ox O2 Del Method O2 Flow Rate 37.1 C 71 31 H 100/45 L 95 Nasal Cannula 5 02/15/24 05:15 02/15/24 06:38 02/15/24 06:38 02/15/24 05:15 02/15/24 06:38 02/15/24 06:38 02/15/24 06:38 FiO2 45 02/15/24 05:15 Oxygen Flow Rate (L/min) 5 Oxygen Delivery Method Nasal Cannula Weight: 118.9 kg Body Mass Index (BMI) 42.3 Intake & Output: Intake and Output for Last 24 Hours 02/13/24 02/14/24 02/15/24 23:59 23:59 23:59 Intake Total 0 / 0 4164.0 / 4664.0 1040 / 1040 Output Total 750 / 1000 2150 / 2150 Balance 0 / 0 3414.0 / 3664.0 -1110 / -1110 Lab / Micro Data 02/15/24 05:13 02/15/24 05:13 Labs: Laboratory Results - last 24 hr 02/14/24 06:19: Troponin I High Sens 154 H* 02/14/24 08:40: Hgb 8.9 L, Hct 26.9 L 02/14/24 11:40: POC Glucose 160 H 02/14/24 16:23: POC Glucose 158 H 02/14/24 17:33: Hgb 8.9 L 02/15/24 05:13: WBC 9.9, RBC 2.81 L, Hgb 8.3 L, Hct 25.3 L, MCV 90.0, MCH 29.5, MCHC 32.8, RDW Std Deviation 43.6, RDW Coeff of Fariba 13.2, Plt Count 201, MPV 11.6, Immature Gran % (Auto) 0.200, Neut % (Auto) 85.6 H, Lymph % (Auto) 8.0 L, [place]gs % (Auto) 5.5, Eos % (Auto) 0.3, Baso % (Auto) 0.4, Absolute Neuts (auto) 8.5 H, Absolute Lymphs (auto) 0.79 L, Nucleated RBC % 0, Sodium 140, Potassium 3.3 L, Chloride 105, Carbon Dioxide 25.0, Anion Gap 10, BUN 36 H, Creatinine 1.52 H, Estim Creat Clear Calc 38.74, Est GFR (MDRD) Af Amer 42 L, Est GFR (MDRD) Non-Af 35 L, BUN/Creatinine Ratio 23.7 H, Glucose 141 H, Calcium 8.3 L 02/15/24 06:15: Urine Color Yellow, Urine Clarity Clear, Urine pH 6.0, Ur Specific Adel 1.015, Urine Protein 15 H, Urine Glucose (UA) Normal, Urine Ketones Negative, Urine Occult Blood 10 H, Urine Nitrite Negative, Urine Bilirubin Negative, Urine Urobilinogen Normal, Ur Leukocyte Esterase Negative, Urine RBC 0 SEEN, Urine WBC 0 SEEN, Ur Squamous Epith Cells 0 SEEN, Urine Bacteria 0 SEEN, Urine Mucus 0 SEEN Micro: Microbiology 02/13/24 19:30 Blood Culture (Wb) - Port Bacteria Detection (PCR) - Final Staphylococcus epidermidis 02/13/24 19:30 Blood Culture (Wb) - Port Blood Culture - Preliminary Staphylococcus epidermidis 02/13/24 19:01 Blood Culture (Wb) - Port Blood Culture - Preliminary 02/13/24 23:05 Mucosa - Nose Respiratory Panel (PCR) - Final 02/13/24 21:05 Mucosa - Nose SARS-CoV-2, Influenza & RSV (PCR) - Final 02/13/24 21:31 Stool Stool Occult Blood (LASHAUN) - Final Occult Blood Positive Radiography Diagnostic Testing: Radiology Impression Echocardiogram 02/14/24 00:38 Interpretation Summary The estimated ejection fraction is 65 %. No evidence for diastolic dysfunction. Trivial mitral valve insufficiency. There is moderate biatrial dilatation. Ordering Physician: Nohemi Walker Performed By: Brodwolf, Dany, RCS Physical Exam Const alert and no apparent distress Constitutional Narrative: on 5l NC. Resp normal respiratory effort, no retractions and no use of accessory muscles Resp Narrative: bibasilar crackles. 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 Octreotide * GI consult Acute Blood Loss Anemia on chronic anemia/iron deficiency anemia * Admission hemoglobin 7.0, positive stool guaiac, * pt received 2 units PRBCs, improved. monitor. NSTEMI * suspect type II * echo shows an EF 65% * ASA held given GIB Acute HFpEF: * 06/11/2023 echocardiogram with LVEF 70?5%, LV systolic function normal, grade 3 LV diastolic dysfunction, RV normal size, RV systolic function normal, severely dilated LA, moderately dilated RA, Navarrete JONES prosthetic aortic valve size #26 present. * Repeat echo ordered. * Got worse on 02/13 requiring going on BiPAP received more IVF furosemide and improved. * Continue with IV furosemide. General malaise * unclear etiology. May be due to anemia. * respiratory panel pending. COVID 19, influenza and RSV negative. * BCx pending. Bacteremia * 1 of 2 + for S. epidermidis * Received vanc. As I feel this contaminant, will discontinue abx for now Chronic conditions: * Valvular heart disease: * Diabetes mellitus type II: stable. SSI. * Hypertension: continue amlodipine. * Hyperlipidemia: Noted statin intolerance, FLP in AM. * Chronic Kidney Disease Stage IV: stable. Monitor * Chronic persistent atrial fibrillation: stable. Not on anticoagulation given GI bleed. Currently still an ongoing evaluation for possible future Watchman. Per 02/11/24 Cardiology note she is supposed to again be evaluated with electrophysiology team to discern decision regarding watchman placement. * GERD: on IV PPI, change to PO when appropriate. 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 * Obesity class III: Weight loss and lifestyle changes encouraged. * Chronic pulmonary hypertension: Continue on sildenafil, following with pulmonary medicine Dr. Nelson * AARTI: CPAP nightly. DVT prophylaxis: SCDs. Full Code. Charges/Coding Visit Charges Inpatient E&M: 47078 Subs Hosp L2
[2024-02-15] MEDS: Ascorbic Acid 500 MG Tablet PO (08:39)
[2024-02-15] MEDS: Ferrous Sulfate 325 MG Tablet PO ×2 (08:39→21:42)
[2024-02-15] MEDS: Furosemide 40 MG/4 ML Vial IV ×2 (08:39→17:00)
[2024-02-15] MEDS: amLODIPine 10 MG Tablet PO (08:39)
[2024-02-15] MEDS: Octreotide 0.5 MG in Dextrose 5%-Water (250mL Bag) 249 ML 25 MG CONT INF ×2 (08:52→18:13)
[2024-02-15] MEDS: Pantoprazole Sodium 80 MG in 0.9% Normal Saline (100mL Bag) 80 ML 10 MG CONT INF ×2 (08:57→18:10)
[2024-02-15] MEDS: 0.9% Saline Lock 10 ML Syringe IV (08:57)
[2024-02-15] MEDS: Magnesium Chloride 64 MG Delay Rel.Tablet PO (09:31)
[2024-02-15 11:50] LABS: Bedside Glucose 176 mg/dL (74-106)
[2024-02-15 12:08] LABS: Hemoglobin 8.3 g/dL (12.0-15.0)
[2024-02-15 16:30] LABS: Hemoglobin 9.3 g/dL (12.0-15.0)
[2024-02-15] MEDS: Potassium Chloride Oral Tablet 20 MEQ 40 MEQ PO (17:00)
[2024-02-15 17:25] LABS: Bedside Glucose 138 mg/dL (74-106)
[2024-02-15 20:26] LABS: Hemoglobin 9.1 g/dL (12.0-15.0)
[2024-02-16] VITALS (20 sets, daily range): BP systolic 117–150; BP diastolic 45–60; PULSE 50–60; RESP 16–18; TEMP 36.4–36.8; O2SAT 81–98; BMI 41.1
--- NOTE | 2024-02-16 | CPS ---
pt is own cpap 16 from home with a 4L o2 bled in.
[2024-02-16 00:37] LABS: Bedside Glucose 140 mg/dL (74-106)
[2024-02-16] MEDS: Pantoprazole Sodium 80 MG in 0.9% Normal Saline (100mL Bag) 80 ML 10 MG CONT INF ×3 (03:35→22:44)
[2024-02-16] MEDS: Octreotide 0.5 MG in Dextrose 5%-Water (250mL Bag) 249 ML 25 MG CONT INF ×3 (03:35→22:43)
[2024-02-16 04:17] LABS: Absolute Lymphocyte Count 1.09 X10^3/uL (0.83-4.51); Absolute Neutrophil Count 5.8 X10^3/uL (2.0-7.7); Basophil# 0.03 X10^3/uL; Basophil% 0.4 % (0-1); Eosinophils% 1.4 % (0-5); Hematocrit 25.3 % (37-47); Hemoglobin 8.3 g/dL (12.0-15.0); Lymphocyte # 1.09 X10^3/ul (0.83-4.51); Lymphocyte % 14.7 % (19-41); Mean Corp Hgb Conc 32.8 g/dL (32-36); Mean Corpuscular Hgb 29.5 pg (27.0-32.0); Mean Platelet Vol. 10.9 fl (6.2-12.0); Monocyte% 5.4 % (0-10); NRBC Flagged by Analyzer 0 % (0-5); Neutrophil # 5.76 X10^3/uL (2.7-7.7); Neutrophil % 77.8 % (47-70); Platelet Count 215 K/mm3 (150-450); RBC Distribution Width CV 13.2 % (11.6-14.6); RBC Distribution Width SD 43.5 fl (35.1-43.9); Red Blood Count 2.81 M/mm3 (4.2-5.4); White Blood Count 7.4 K/mm3 (4.4-11.0)
[2024-02-16 04:39] LABS: Anion Gap 9 (5-15); BUN 32 mg/dL (7-18); BUN/Creat Ratio 18.3 RATIO (10-20); Calcium,Total 8.4 mg/dL (8.5-10.1); Chloride 102 mmol/L (98-107); Creatinine, Serum 1.75 mg/dL (0.55-1.02); EST Glomerular Filtration Rate 30 mL/min (>60); Est Glom Filt Rate - Afr Amer 36 mL/min (>60); Estimated Creatinine Clearance 33.13 ml/min; Glucose 126 mg/dL (74-106); Potassium 3.2 mmol/L (3.5-5.1); Sodium Level 138 mmol/L (136-145)
--- NOTE | 2024-02-16 07:41 | EKG12_ITS ---
Test Reason : ELDA Blood Pressure : / mmHG Vent. Rate : 054 BPM Atrial Rate : 000 BPM P-R Int : 000 ms QRS Dur : 078 ms QT Int : 438 ms P-R-T Axes : 000 019 -74 degrees QTc Int : 415 ms Atrial fibrillation with slow ventricular response ST & T wave abnormality, consider inferior ischemia ST & T wave abnormality, consider anterolateral ischemia Abnormal ECG Confirmed by HARPAL BALDWIN, AMY ([id number]), editor greeting card OPAL PATTERSON ([id number]) on 02/18/2024 5:56:44 AM Referred By: MAREK Confirmed By:AMY ROWAN MD
[2024-02-16 08:32] LABS: Hemoglobin 8.3 g/dL (12.0-15.0)
--- NOTE | 2024-02-16 09:12 | PN.HOSP_ITS ---
Reason for Visit Reason for Visit: Diagnoses Acute posthemorrhagic anemia (02/13/24) Gastrointestinal hemorrhage, unspecified (02/13/24) Fever, unspecified (02/13/24) Other specified abnormal findings of blood chemistry (02/13/24) Subjective Subjective Breathing well. Oxygen decreased to 2l nc. Objective Data Objective Data Vital Signs: Vital Signs Temp Pulse Resp BP Pulse Ox O2 Del Method O2 Flow Rate 36.4 C L 56 L 18 117/50 L 97 Nasal Cannula 4 02/16/24 03:30 02/16/24 03:30 02/16/24 03:30 02/16/24 03:30 02/16/24 03:30 02/16/24 08:18 02/16/24 09:01 FiO2 98 02/15/24 20:10 Oxygen Flow Rate (L/min) 4 Oxygen Delivery Method Nasal Cannula Weight: 115.7 kg Body Mass Index (BMI) 41.1 Intake & Output: Intake and Output for Last 24 Hours 02/14/24 02/15/24 02/16/24 23:59 23:59 23:59 Intake Total 4164.0 / 4664.0 2595.92 / 2795.92 528.34 / 528.34 Output Total 750 / 1000 3700 / 4550 1200 / 1200 Balance 3414.0 / 3664.0 -1104.08 / -1754.08 -671.66 / -671.66 Lab / Micro Data 02/16/24 08:00 02/16/24 04:00 Labs: Laboratory Results - last 24 hr 02/15/24 11:27: POC Glucose 176 H 02/15/24 12:00: Hgb 8.3 L 02/15/24 16:10: Hgb 9.3 L 02/15/24 16:55: POC Glucose 138 H 02/15/24 20:15: Hgb 9.1 L 02/16/24 00:15: POC Glucose 140 H 02/16/24 00:20: Hgb 8.0 L 02/16/24 04:00: WBC 7.4, RBC 2.81 L, Hgb 8.3 L, Hct 25.3 L, MCV 90.0, MCH 29.5, MCHC 32.8, RDW Std Deviation 43.5, RDW Coeff of Fariba 13.2, Plt Count 215, MPV 10.9, Immature Gran % (Auto) 0.300, Neut % (Auto) 77.8 H, Lymph % (Auto) 14.7 L, [place] % (Auto) 5.4, Eos % (Auto) 1.4, Baso % (Auto) 0.4, Absolute Neuts (auto) 5.8, Absolute Lymphs (auto) 1.09, Nucleated RBC % 0, Sodium 138, Potassium 3.2 L , Chloride 102, Carbon Dioxide 27.0, Anion Gap 9, BUN 32 H, Creatinine 1.75 H, Estim Creat Clear Calc 33.13, Est GFR (MDRD) Af Amer 36 L, Est GFR (MDRD) Non-Af 30 L, BUN/Creatinine Ratio 18.3, Glucose 126 H, Calcium 8.4 L 02/16/24 08:00: Hgb 8.3 L Micro: Microbiology 02/13/24 19:01 Blood Culture (Wb) - Port Blood Culture - Preliminary 02/13/24 19:30 Blood Culture (Wb) - Port Bacteria Detection (PCR) - Final Staphylococcus epidermidis 02/13/24 19:30 Blood Culture (Wb) - Port Blood Culture - Final Staphylococcus epidermidis 02/13/24 23:05 Mucosa - Nose Respiratory Panel (PCR) - Final 02/13/24 21:05 Mucosa - Nose SARS-CoV-2, Influenza & RSV (PCR) - Final 02/13/24 21:31 Stool Stool Occult Blood (LASHAUN) - Final Occult Blood Positive Physical Exam Const alert and no apparent distress HEENT head/scalp atraumatic and moist oral mucous membranes Resp normal respiratory effort Cardio regular rate, regular rhythm, S1 normal heart sound and S2 normal heart sound GI normal to inspection, nondistended, normoactive bowel sounds, soft to palpation, non-tender and non-distended Neuro Sensorium / Orientation: awake and alert Psych affect normal Assessment & Plan Assessment/Plan (1) Acute GI bleeding: (2) Elevated troponin: (3) Acute blood loss anemia: (4) FUO (fever of unknown origin): PLAN: Plan Acute GI Bleed * stable. * w/ Hx prior GI bleeds w/ Hx Colonic AVMs s/p prior multiple clippings and cauterizations at [facility] not felt candidate for surgical management * pantoprazole gtt. Octreotide * GI consult. Endoscopy held on 02/13 due to respiratory distress from CHF. Acute Blood Loss Anemia on chronic anemia/iron deficiency anemia * Admission hemoglobin 7.0, positive stool guaiac, * pt received 2 units PRBCs, improved. monitor. NSTEMI * suspect type II * echo shows an EF 65% * ASA held given GIB * no additional work up at this time. Acute HFpEF: * 06/11/2023 echocardiogram with LVEF 70?5%, LV systolic function normal, grade 3 LV diastolic dysfunction, RV normal size, RV systolic function normal, severely dilated LA, moderately dilated RA, Navarrete JONES prosthetic aortic valve size #26 present. * Repeat echo ordered. * Got worse on 02/13 requiring going on BiPAP received more IVF furosemide and improved. * Continue with IV furosemide. * Improving Bacteremia * 1 of 2 + for S. epidermidis * Received vanc. As I feel this contaminant, will discontinue abx Chronic conditions: * Valvular heart disease: * Diabetes mellitus type II: stable. SSI. * Hypertension: continue amlodipine. * Hyperlipidemia: Noted statin intolerance, FLP in AM. * Chronic Kidney Disease Stage IV: stable. Monitor * Chronic persistent atrial fibrillation: stable. Not on anticoagulation given GI bleed. Currently still an ongoing evaluation for possible future Watchman. Per 02/11/24 Cardiology note she is supposed to again be evaluated with electrophysiology team to discern decision regarding watchman placement. * GERD: on IV PPI, change to PO when appropriate. 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 * Obesity class III: Weight loss and lifestyle changes encouraged. * Chronic pulmonary hypertension: Continue on sildenafil, following with pulmonary medicine Dr. Nelson * AARTI: CPAP nightly. DVT prophylaxis: SCDs. Full Code. DW pt's . Charges/Coding Visit Charges Inpatient E&M: 82089 Subs Hosp L2
[2024-02-16] MEDS: Furosemide 40 MG/4 ML Vial IV ×2 (09:53→17:21)
[2024-02-16 12:32] LABS: Bedside Glucose 124 mg/dL (74-106)
--- NOTE | 2024-02-16 14:17 | EX.PCM.PN.GI ---
Subjective Subjective Patient has been on clear liquids with a fluid restriction. She did have 1 bloody bowel movement overnight. She is not having any abdominal pain. Her oxygen requirements have decreased down to 2 L/min. She is satting 93% on 2 L/min. Objective Data Objective Data Vital Signs: Vital Signs Temp Pulse Resp BP Pulse Ox O2 Del Method O2 Flow Rate 98.1 F 54 L 18 135/45 H 93 Room Air 2 02/16/24 09:47 02/16/24 09:47 02/16/24 09:47 02/16/24 09:47 02/16/24 11:28 02/16/24 11:28 02/16/24 11:20 FiO2 98 02/15/24 20:10 Oxygen Flow Rate (L/min) 2 Oxygen Delivery Method Room Air Weight: 255 lb 1.197 oz Body Mass Index (BMI) 41.1 Intake & Output: Intake and Output for Last 24 Hours 02/14/24 02/15/24 02/16/24 23:59 23:59 23:59 Intake Total 4164.0 / 4664.0 2595.92 / 2795.92 869.76 / 869.76 Output Total 750 / 1000 3700 / 4550 1200 / 1200 Balance 3414.0 / 3664.0 -1104.08 / -1754.08 -330.24 / -330.24 Lab / Micro Data 02/16/24 08:00 02/16/24 04:00 Labs: Laboratory Results - last 24 hr 02/15/24 16:10: Hgb 9.3 L 02/15/24 16:55: POC Glucose 138 H 02/15/24 20:15: Hgb 9.1 L 02/16/24 00:15: POC Glucose 140 H 02/16/24 00:20: Hgb 8.0 L 02/16/24 04:00: WBC 7.4, RBC 2.81 L, Hgb 8.3 L, Hct 25.3 L, MCV 90.0, MCH 29.5, MCHC 32.8, RDW Std Deviation 43.5, RDW Coeff of Fariba 13.2, Plt Count 215, MPV 10.9, Immature Gran % (Auto) 0.300, Neut % (Auto) 77.8 H, Lymph % (Auto) 14.7 L, Charlton % (Auto) 5.4, Eos % (Auto) 1.4, Baso % (Auto) 0.4, Absolute Neuts (auto) 5.8, Absolute Lymphs (auto) 1.09, Nucleated RBC % 0, Sodium 138, Potassium 3.2 L, Chloride 102, Carbon Dioxide 27.0, Anion Gap 9, BUN 32 H, Creatinine 1.75 H, Estim Creat Clear Calc 33.13, Est GFR (MDRD) Af Amer 36 L, Est GFR (MDRD) Non-Af 30 L, BUN/Creatinine Ratio 18.3, Glucose 126 H, Calcium 8.4 L 02/16/24 08:00: Hgb 8.3 L 02/16/24 11:24: POC Glucose 124 H Micro: Microbiology 02/13/24 19:01 Blood Culture (Wb) - Port Blood Culture - Preliminary 02/13/24 19:30 Blood Culture (Wb) - Port Bacteria Detection (PCR) - Final Staphylococcus epidermidis 02/13/24 19:30 Blood Culture (Wb) - Port Blood Culture - Final Staphylococcus epidermidis 02/13/24 23:05 Mucosa - Nose Respiratory Panel (PCR) - Final 02/13/24 21:05 Mucosa - Nose SARS-CoV-2, Influenza & RSV (PCR) - Final 02/13/24 21:31 Stool Stool Occult Blood (LASHAUN) - Final Occult Blood Positive Physical Exam Const alert and no apparent distress HEENT head/scalp atraumatic and moist oral mucous membranes Resp normal respiratory effort Cardio regular rate, regular rhythm, S1 normal heart sound and S2 normal heart sound GI normal to inspection, nondistended, normoactive bowel sounds, soft to palpation, non-tender and non-distended Neuro Sensorium / Orientation: awake and alert Psych affect normal Assessment & Plan Assessment/Plan (1) Acute GI bleeding: (2) Elevated troponin: (3) Acute blood loss anemia: (4) FUO (fever of unknown origin): PLAN: Plan 78 y/o F with chronic Pulmonary HTN, Morbid obesity, GERD, Hx GI bleed w/ Colonic AVMs s/p prior clipping/cauterizations. She presents with fatigue, malaise and lower GI bleeding. She was covered to have hemoglobin of 7.8 and redraw was 7.4. Acute GI Bleed w/ resultant Acute Blood Loss Anemia on chronic anemia/iron deficiency anemia w/ Hx prior GI bleeds w/ Hx Colonic AVMs s/p prior multiple clippings and cauterizations at [facility]. She has never had a capsule endoscopy. Differential diagnosis does include upper GI bleed with rapid transit, lower GI bleed all secondary to angiodysplasias. She should undergo upper and lower endoscopy and capsule endoscopy. She was explained alternatives, risk and benefits including outstanding bleeding, infection, sepsis, perforation, need for emergent urgent . She have an ASA of 3. 6/30/24-GI blood loss anemia in the setting of acute CHF exacerbation possibly secondary to multiple blood transfusions. Keep n.p.o. past midnight plan is for upper and lower endoscopy tomorrow. Charges/Coding Visit Charges Inpatient E&M: 12167 Subs Hosp L3
[2024-02-16] MEDS: SILDENAFIL CITRATE 20 MG TABLET PO ×2 (16:07→20:44)
[2024-02-16 18:02] LABS: Bedside Glucose 166 mg/dL (74-106)
[2024-02-16] MEDS: Potassium Chloride Oral Tablet 20 MEQ 40 MEQ PO (18:33)
[2024-02-16] MEDS: Ascorbic Acid 500 MG Tablet PO (20:44)
[2024-02-16] MEDS: Ferrous Sulfate 325 MG Tablet PO (20:44)
[2024-02-16 21:43] LABS: Hemoglobin 9.6 g/dL (12.0-15.0)
[2024-02-16 23:04] LABS: Bedside Glucose 134 mg/dL (74-106)
[2024-02-17] VITALS (14 sets, daily range): BP systolic 132–164; BP diastolic 54–72; PULSE 52–78; RESP 16–20; TEMP 36.4–37.1; O2SAT 93–98; BMI 40.4
[2024-02-17] MEDS: MELATONIN 3 MG TABLET PO (00:08)
[2024-02-17 05:59] LABS: Absolute Lymphocyte Count 0.72 X10^3/uL (0.83-4.51); Absolute Neutrophil Count 7.3 X10^3/uL (2.0-7.7); Basophil# 0.04 X10^3/uL; Basophil% 0.5 % (0-1); Eosinophils% 1.2 % (0-5); Hematocrit 26.7 % (37-47); Hemoglobin 8.4 g/dL (12.0-15.0); Lymphocyte # 0.72 X10^3/ul (0.83-4.51); Lymphocyte % 8.3 % (19-41); Mean Corp Hgb Conc 31.5 g/dL (32-36); Mean Corpuscular Hgb 28.3 pg (27.0-32.0); Mean Corpuscular Volume 89.9 fL (81-99); Mean Platelet Vol. 11.9 fl (6.2-12.0); Monocyte# 0.46 X10^3/uL; Monocyte% 5.3 % (0-10); NRBC Flagged by Analyzer 0 % (0-5); Neutrophil % 84.4 % (47-70); Platelet Count 240 K/mm3 (150-450); RBC Distribution Width CV 12.9 % (11.6-14.6); RBC Distribution Width SD 42.5 fl (35.1-43.9); Red Blood Count 2.97 M/mm3 (4.2-5.4); White Blood Count 8.7 K/mm3 (4.4-11.0)
[2024-02-17 06:14] LABS: Anion Gap 8 (5-15); BUN 30 mg/dL (7-18); BUN/Creat Ratio 19.7 RATIO (10-20); Calcium,Total 8.7 mg/dL (8.5-10.1); Chloride 102 mmol/L (98-107); Creatinine, Serum 1.52 mg/dL (0.55-1.02); EST Glomerular Filtration Rate 35 mL/min (>60); Est Glom Filt Rate - Afr Amer 42 mL/min (>60); Estimated Creatinine Clearance 37.77 ml/min; Glucose 134 mg/dL (74-106); Potassium 3.6 mmol/L (3.5-5.1); Sodium Level 137 mmol/L (136-145)
[2024-02-17] MEDS: Octreotide 0.5 MG in Dextrose 5%-Water (250mL Bag) 249 ML 25 MG CONT INF ×2 (08:12→17:43)
[2024-02-17] MEDS: Pantoprazole Sodium 80 MG in 0.9% Normal Saline (100mL Bag) 80 ML 10 MG CONT INF ×2 (08:13→17:44)
--- NOTE | 2024-02-17 08:28 | PN.HOSP_ITS ---
Reason for Visit Reason for Visit: Diagnoses Acute posthemorrhagic anemia (02/13/24) Gastrointestinal hemorrhage, unspecified (02/13/24) Fever, unspecified (02/13/24) Other specified abnormal findings of blood chemistry (02/13/24) Subjective Subjective Patient is an 78-year-old lady with history of previous GI bleed with known colonic AVMs status post clipping and cauterization who presented with abnormal labs. Hemoglobin on admission was 7.0 Objective Data Objective Data Vital Signs: Vital Signs Temp Pulse Resp BP Pulse Ox O2 Del Method O2 Flow Rate 97.6 F L 62 18 142/56 H 94 Room Air 2 02/17/24 03:50 02/17/24 03:50 02/17/24 03:50 02/17/24 03:50 02/17/24 07:06 02/17/24 08:21 02/17/24 07:06 FiO2 98 02/15/24 20:10 Oxygen Flow Rate (L/min) 2 Oxygen Delivery Method Room Air Weight: 113.7 kg Body Mass Index (BMI) 40.4 Intake & Output: Intake and Output for Last 24 Hours 02/15/24 02/16/24 02/17/24 23:59 23:59 23:59 Intake Total 2595.92 / 2795.92 1798.17 / 1848.17 381.91 / 381.91 Output Total 3700 / 4550 2625 / 2925 300 / 300 Balance -1104.08 / -1754.08 -826.83 / -1076.83 81.91 / 81.91 Lab / Micro Data 02/17/24 05:18 02/17/24 05:18 Labs: Laboratory Results - last 24 hr 02/16/24 08:00: Hgb 8.3 L 02/16/24 11:24: POC Glucose 124 H 02/16/24 17:12: POC Glucose 166 H 02/16/24 21:36: Hgb 9.6 L 02/16/24 22:42: POC Glucose 134 H 02/17/24 05:18: WBC 8.7, RBC 2.97 L, Hgb 8.4 L, Hct 26.7 L, MCV 89.9, MCH 28.3, MCHC 31.5 L, RDW Std Deviation 42.5, RDW Coeff of Fariba 12.9, Plt Count 240, MPV 11.9, Immature Gran % (Auto) 0.300, Neut % (Auto) 84.4 H, Lymph % (Auto) 8.3 L, [place] % (Auto) 5.3, Eos % (Auto) 1.2, Baso % (Auto) 0.5, Absolute Neuts (auto) 7.3, Absolute Lymphs (auto) 0.72 L, Nucleated RBC % 0, Sodium 137, Potassium 3.6, Chloride 102, Carbon Dioxide 27.0, Anion Gap 8, BUN 30 H, Creatinine 1.52 H , Estim Creat Clear Calc 37.77, Est GFR (MDRD) Af Amer 42 L, Est GFR (MDRD) Non- Af 35 L, BUN/Creatinine Ratio 19.7, Glucose 134 H, Calcium 8.7 Micro: Microbiology 02/13/24 19:01 Blood Culture (Wb) - Port Blood Culture - Preliminary 02/13/24 19:30 Blood Culture (Wb) - Port Bacteria Detection (PCR) - Final Staphylococcus epidermidis 02/13/24 19:30 Blood Culture (Wb) - Port Blood Culture - Final Staphylococcus epidermidis 02/13/24 23:05 Mucosa - Nose Respiratory Panel (PCR) - Final 02/13/24 21:05 Mucosa - Nose SARS-CoV-2, Influenza & RSV (PCR) - Final 02/13/24 21:31 Stool Stool Occult Blood (LASHAUN) - Final Occult Blood Positive Physical Exam Narrative GENERAL: cooperative HEENT: Atraumatic; normocephalic EYES; Anicteric, Normal Conjunctiva NECK; supple, normal thyroid, RESPIRATORY: Diminished to auscultation CARDIOVASCULAR: Regular S1 S2, GI: soft, normoactive bowel sounds, : No Renal angle tenderness; EXTREMITIES: No edema, no clubbing, MUSCULOSKELETAL: no muscle wasting NEURO: Awake; no lateralizing signs. SKIN: No Rash PSYCH; Flat affect Assessment & Plan Assessment/Plan (1) Acute GI bleeding: (2) Elevated troponin: (3) Acute blood loss anemia: (4) FUO (fever of unknown origin): PLAN: Plan Patient is an 78-year-old lady with history of previous GI bleed with known colonic AVMs status post clipping and cauterization who presented with abnormal labs. Hemoglobin on admission was 7.0 1. Anemia ? Secondary to acute blood loss anemia secondary to GI bleed. Patient admitted to a monitored bed. Patient was transfused with 2 unit PRBC 1. Acute GI bleed ? Patient has known history of colonic AVMs with priorr multiple clippings and cauterizations at [facility] felt not an appropriate candidate for surgical management. Patient was started on Protonix drip in addition to octreotide consult placed to GI patient seen by Dr. Snowden. Recommended for patient to undergo both upper and lower GI endoscopy 3. Elevated troponin ? Secondary to myocardial ischemia from GI bleed. Echo demonstrated EF of 65% 4. Acute on chronic congestive heart failure with preserved ejection fraction Echo from 06/11/2023 did show LVEF 70?5%, LV systolic function normal, grade 3 LV diastolic dysfunction, RV normal size, RV systolic function normal, severely dilated LA, moderately dilated RA, Navarrete JONES prosthetic aortic valve size #26 present.. Patient managed with noninvasive ventilation BiPAP diuretic therapy with repeat echo ordered 5. Acute hypoxic respiratory failure ? Secondary to congestive heart failure patient placed on BiPAP in addition to furosemide 6. Bacteremia - 1 of 2 for S. epidermidis this was felt to be contaminant patient had received vancomycin subsequently discontinued 7. Valvular heart disease ? History of prostatic aortic valve 8. Hypertension - Blood pressure controlled, home medications continued with dose adjustment as needed 9. Diabetes mellitus type 2 ? Managed with diet. Placed on Accu-Cheks ACHS with sliding scale coverage 10. Dyslipidemia ? Patient apparently did not tolerate statins in the past 11. Acute kidney injury superimposed on chronic kidney disease stage III ? Creatinine on admission was 2.06 has improved to 1.5 to subsequent monitoring with daily BMPs ordered 12. Chronic persistent A-fib ? Rate controlled. Currently undergoing evaluation for possible Watchman. Patient not a candidate for systemic anticoagulation due to recurrent GI bleed 13. GERD ? On PPI 14. Pulmonary hypertension ? Patient is on sildenafil 15. Obstructive sleep apnea ? CPAP at night 16. History of VTE ? Status post IVC filter placement 09/2018 17. DVT prophylaxis ? Bilateral SCDs Time spent in the patient's overall evaluation,decision-making process, review of diagnostic data, adjustment of management, discussion with other providers, nursing nursing and ancillary staff involved in patient's care documentation, 51 Minutes Charges/Coding Visit Charges Inpatient E&M: 23447 [facility] Hosp L3
[2024-02-17] MEDS: Magnesium Chloride 64 MG Delay Rel.Tablet PO (09:42)
[2024-02-17] MEDS: amLODIPine 10 MG Tablet PO (09:42)
[2024-02-17] MEDS: 0.9% Saline Lock 10 ML Syringe IV ×2 (09:42→17:43)
[2024-02-17] MEDS: Furosemide 40 MG/4 ML Vial IV ×2 (09:42→17:43)
[2024-02-17 10:16] LABS: Bedside Glucose 133 mg/dL (74-106)
--- NOTE | 2024-02-17 10:32 | PCM.PRE.AN2 ---
ASA Classification* ASA Classification ASA Classification: 3 Assessment & Plan Anesthesia* Anesthesia Assessment Anesthesia Assessment: Discussed sedation and/or anesthesia options, risks, benefits, and alternatives with patient/parents/legal guardian/POA. Questions invited. The patient/parents/legal guardian/POA seems to understand and agrees to proceed with anesthesia plan. Reviewed the physical assessment, medical history, allergy history and patient home medications list prior to surgery/procedure/anesthetic and documented any changes. Performed airway and anesthesia risk assessments. Anesthesia Type Anesthesia Type: MAC (see written pre anesthesia record for full assessment) Anesthesia Focused Assessment* Temperature: 98.6 F Pulse Rate: 78 Blood Pressure: 146/68 Respiratory Rate: 18 Pulse Ox: 97 Fraction of Inspired Oxygen (FIO2): 98 Airway Assessment Mouth opens: >3 cm Mallampati Score: III Focused Labs Anesthesia Preop lab: CBC WBC 8.7 K/mm3 (4.4-11.0) 02/17/24 05:18 RBC 2.97 M/mm3 (4.2-5.4) L 02/17/24 05:18 Hgb 8.4 g/dL (12.0-15.0) L 02/17/24 05:18 Hct 26.7 % (37-47) L 02/17/24 05:18 Plt Count 240 K/mm3 (150-450) 02/17/24 05:18 CHEMISTRY Potassium 3.6 mmol/L (3.5-5.1) 02/17/24 05:18 Sodium 137 mmol/L (136-145) 02/17/24 05:18 Magnesium 2.3 mg/dL (1.6-2.6) 02/13/24 21:05 Phosphorus 3.6 mg/dL (2.5-4.9) 11/29/23 13:25 BUN 30 mg/dL (7-18) H 02/17/24 05:18 Creatinine 1.52 mg/dL (0.55-1.02) H 02/17/24 05:18 Glucose 134 mg/dL (74-106) H 02/17/24 05:18 POC Glucose 133 mg/dL (74-106) H 02/17/24 09:58 TSH 3.66 uIU/mL (0.358-3.74) 12/11/23 12:40 COAG PT 15.7 SECONDS (11.7-14.9) H 02/13/24 21:05 INR 2.3 02/18/23 06:46 Pre-Assessment Diagnosis/Proposed Procedure Planned Operative Procedure(s): egd colon Anesthesia History 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 When Was Last Pacemaker Check QUESTION #4 FULL TEXT: You/Your Family Experience fever (hyperthermia) with Anesthesia Last Oral Intake Last Oral intake: Last Oral Intake NPO since 00:01 02/17/24 09:51 Meds taken in AM with sips of Yes 02/17/24 09:51 water? Meds patient instructed to Amlodipine, Magnesium 02/17/24 09:51 take am of surgery PONV PONV - geotechnical engineer: PONV - geotechnical engineer Female HX of Motion Sickness HX of N/V After Surgery Non-Smoker Duration of Surgery greater than 60 minutes Number of Risk Factors PONV Score Height & Weight Height & Weight: Anesthesia: Height & Weight Height 5 ft 6 in 02/17/24 09:51 Weight: 113.7 kg 02/17/24 09:51 Body Mass Index (BMI) 40.4 02/17/24 09:51 Respiratory Assessment Respiratory Assessment - geotechnical engineer: Respiratory Tract Infection Hx - geotechnical engineer Hx Respiratory Tract Infection No 02/15/24 20:15 STOP Sleep Apnea STOP Sleep Apnea - geotechnical engineer: STOP Sleep Apnea - geotechnical engineer Hx Hypertension Yes 02/16/24 09:01 Hx Sleep Apnea Yes 02/14/24 00:47 CPAP Yes 02/14/24 00:47 BIPAP No 02/14/24 00:47 Do you snore loudly (louder than talking or can be heard Do you often feel tired/ fatigued/ sleepy during daytime? Has anyone observed you stop breathing during sleep? STOP Results Positive 02/14/24 00:47 QUESTION #5 FULL TEXT : Do you snore loudly (louder than talking or can be heard through closed doors)? 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 Specify any problems Hx of Preganancy in last 3 No 02/14/24 00:47 Months Nurse Filling Out Transfusion DCORPORAL 02/14/24 00:47 & Questions: Date: 02/14/24 02/14/24 00:47 Time: 00:49 02/14/24 00:47 Patient unable to answer at this time (ie. confused, unrespo /Reproduction History /Reproductive History - geotechnical engineer: /Reproductive Hx- geotechnical engineer Hx Now No 02/15/24 20:15 Gestational Age (in weeks): EDC: Hx Hx Para Hx Section SAB No 02/15/24 20:15 Active Medications Active Medications: Current Medications Generic Name Dose Route Start Last Admin Trade Name Freq PRN Reason Stop Dose Admin Acetaminophen 650 mg 02/14/24 00:38 02/14/24 21:54 Acetaminophen 325 Mg Tablet PO 650 mg Q4H PRN PRN Administration Fever, pain 1-10/10 Al Hydroxide/Mg Hydroxide 30 ml 02/14/24 00:38 Mag Hydrox/Al Hydrox/Simeth 30 Ml Udc PO Q6H PRN PRN Gastric Burning Albuterol Sulfate 2.5 mg 02/14/24 00:38 Albuterol 2.5 Mg/3 Ml Vial.Neb. INHALATION Q2H PRN PRN Dyspnea, wheezing Amlodipine Besylate 10 mg 02/14/24 10:00 02/17/24 09:42 Amlodipine 10 Mg Tablet PO 10 mg DAILY PAM Administration Protocol Ascorbic Acid 500 mg 02/16/24 22:00 02/16/24 20:44 Ascorbic Acid 500 Mg Tablet PO 500 mg QHS PAM Administration Ferrous Sulfate 325 mg 02/14/24 10:00 02/16/24 20:44 Ferrous Sulfate 325 Mg Tablet PO 325 mg BID PAM Administration Furosemide 40 mg 02/14/24 18:00 02/17/24 09:42 Furosemide 40 Mg/4 Ml Vial IV 40 mg BIDLX PAM Administration Protocol Guaifenesin 20 ml 02/14/24 00:38 Guaifenesin 10 Ml Udc (200mg/10ml) PO Q4H PRN PRN COUGH Hydralazine HCl 10 mg 02/14/24 00:38 Hydralazine 20 Mg/Ml Vial IV Q4H PRN PRN SBP > 160 Protocol Octreotide Acetate 0.5 mg/ 250 mls @ 25 mls/hr 02/14/24 02:00 02/17/24 08:12 Dextrose CONT INF 25 mls/hr .Q10H PAM Administration Pantoprazole Sodium 80 mg/ 100 mls @ 10 mls/hr 02/14/24 02:00 02/17/24 08:13 Sodium Chloride CONT INF 10 mls/hr Q10H PAM Administration Sodium Chloride 250 mls @ 15 mls/hr 02/14/24 00:43 IV .[id number] PRN Additional IVPB Infusion Sodium Chloride 250 mls @ 15 mls/hr 02/14/24 00:43 IV .[id number] PRN Saline Flush Insulin Human Lispro 0 unit 02/14/24 00:38 02/17/24 06:16 Insulin Lispro 100 Unit/Ml Insuln.Pen SC Not Given Q6H [facility] Protocol Magnesium Chloride 64 mg 02/14/24 10:00 02/17/24 09:42 Magnesium Chloride 64 Mg Delay Rel.Tablet PO 64 mg DAILY PAM Administration Melatonin 3 mg 02/14/24 00:38 02/17/24 00:08 Melatonin 3 Mg Tablet PO 3 mg QHS PRN PRN Administration INSOMNIA Ondansetron HCl 4 mg 02/14/24 00:38 Ondansetron 4 Mg/2 Ml Vial IV Q8H PRN PRN NAUSEA/VOMITING Prochlorperazine Edisylate 5 mg 02/14/24 00:38 Prochlorperazine 10 Mg/2 Ml Vial IV Q4H PRN PRN Breakthrough Nausea/Vomiting Sildenafil Citrate 20 mg 02/14/24 06:00 02/16/24 20:45 Sildenafil Citrate 20 Mg Tablet PO Not Given TID PAM Sodium Chloride 10 - 40 ml 02/14/24 00:43 02/17/24 09:42 0.9% Saline Lock 10 Ml Syringe IV 10 ml UD PRN Administration SALINE FLUSH Sodium Chloride 2 spray 02/14/24 18:20 Sodium Chloride 0.65% 1 Seaside Seaside.Btl NASAL BID PRN PRN NASAL DRYNESS PFSH Medical History Pneumonia COVID-19 Obstructive sleep apnea Chronic kidney disease, stage 3b Pleural effusion on left 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 Anemia of chronic renal failure, stage 3 (moderate) Nonobstructive atherosclerosis of coronary artery Longstanding persistent atrial fibrillation Acute blood loss anemia (09/24/20) Iron deficiency anemia due to chronic blood loss Chronic GI bleeding Chronic diastolic (congestive) heart failure Type 2 diabetes mellitus Essential (primary) hypertension Presence of IVC filter (09/2018) Anemia in chronic kidney disease (CKD) Acute kidney injury Bloody stool Knee pain Anemia Arthritis Hyperkalemia Non-ST elevation (NSTEMI) myocardial infarction (12/09/16) Nonrheumatic aortic (valve) stenosis Nonrheumatic mitral (valve) insufficiency Nonrheumatic tricuspid (valve) insufficiency Other secondary pulmonary hypertension Sepsis secondary to UTI Fatigue History of pneumonia Osteopenia Liver disease History of GI bleed Diverticulitis History of blood transfusion Morbid obesity Iron deficiency anemia Hyperlipidemia Home Medications ?Medication ?Instructions ?Recorded ?Last Taken ?Type sildenafil (pulm.hypertension) 20 20 mg PO TID PULMONARY HTN 11/18/17 02/13/24 23:30 History mg tablet magnesium 250 mg tablet 250 mg PO DAILY SUPPLEMENT 10/09/18 02/12/24 History ferrous sulfate 325 mg (65 mg 325 mg PO BID SUPPLEMENT 04/14/19 02/13/24 History iron) tablet (Melissa-Time) ascorbic acid (vitamin C) 500 mg 500 mg PO DAILY SUPPLEMENT 05/10/20 02/13/24 History capsule cyanocobalamin (vitamin B-12) 2,500 mcg sublingual QODAY 05/10/20 02/12/24 History 2,500 mcg sublingual lozenge SUPPLEMENT pantoprazole 40 mg tablet,delayed 40 mg PO DAILY ACID REFLUX 03/06/21 02/13/24 History release furosemide 40 mg tablet 40 mg PO DAILY CHF #30 tabs 07/30/23 Unknown Rx cholecalciferol (vitamin D3) 50 50 mcg PO DAILY supplement 08/08/23 02/13/24 History mcg (2,000 unit) capsule amlodipine 10 mg tablet 10 mg PO DAILY BLOOD PRESSURE #90 12/11/23 02/13/24 Rx tabs Allergy/AdvReac Type Severity Reaction Status Date / Time pravastatin AdvReac Severe severe Verified 02/13/24 20:15 muscle and joint pain Family History Mother , age 83 Uterine cancer Hypertension Father , age 81 Heart disease Diabetes CAD (coronary artery disease) Hypertension Surgical History History of hysterectomy History of root canal procedure H/O aortic valve replacement (09/15/18) coil embolization of colonic artery History of left heart catheterization (LHC) (04/10/17) Status post right foot surgery History of hysterectomy History of appendectomy Social History household members: spouse housing: house Smoking Status: Never smoker alcohol intake: never substance use type: does not use caffeine: No what type of physical activity do you participate in: none divina/anabaptist: Mennonite seatbelt use: always do you feel safe at home: Yes Review of Systems (Anesthesia) ROS Narrative System reviewed and no additional complaints, except as documented.
[2024-02-17] MEDS: Lactated Ringers 1,000 ML 15 ML IV (10:44)
--- NOTE | 2024-02-17 11:30 | COLBX_PTH ---
PATIENT: KAMI ROLLE LOC: [facility] U#:[id number] AGE/SX: 78/F ROOM: [facility] RE02/13/[address]: Dr. Eric Fontaine MD : 1945 BED: 1 DIS: 02/18/2024 SPEC #: [id number] RECD: 02/17/24 13:52 STATUS: LUCY REMichele #: [id number] CHELSEA: 02/17/24 11:[address]: Vincent Snowden DEPT: SURGICAL PATHOLOGY RECD BY: Teodora Hennessy ENTERED: 02/18/24 10:06 SP TYPE: COLON BX OTHR DR: MD Dr. Eric Gunter MD Dr. Eric Jopperi, DO Carolyn Graham, FEATHER MAKER-C Tissues: A - Ascending colon B - Ascending colon Procedures: Surgery Specimen Level IV Comments: @ Ordering doctor for SUIV edited from to @ maxim TAMAYO at 02/18/24 1055 @ Submitting doctor edited from to @ by RONI at 02/18/24 1055 HEADER OPERATION: Colonoscopy, EGD, electrohemostasis, polypectomy, biopsy PRE-OP DIAGNOSIS: Acute GI bleeding TISSUE SUBMITTED: A- Ascending colon polyp biopsy, B- Ascending colon polyp MICROSCOPIC DIAGNOSIS A. Ascending colon polyp, biopsy: Polypoid fragment colonic mucosa with mild acute colitis. See comment. B. Ascending colon polyp, biopsy: Consistent with inflammatory polyp with ulceration and associated mucosal denudation. AM/mr 02/19/2024 COMMENT A. There are cryptitis and crypt abscesses present. Significant glandular distortion is not identified. The lamina propria is not expanded by inflammatory cells. Clinical correlation is suggested. MICROSCOPIC DESCRIPTION Slides are reviewed. GROSS DESCRIPTION A. Received in fixative is one container labeled with the patient's name and designated Ascending colon polyp biopsy. The specimen consists of multiple irregular fragments of light melchor soft tissue that in aggregate measure 0.6 x 0.3 x 0.1 cm. The specimen is totally submitted in one cassette. B. Received in fixative is one container labeled with the patient's name and designated Ascending colon polyp. The specimen consists of multiple irregular fragments of light melchor soft tissue that in aggregate measure 1.0 x 0.3 x 0.1 cm. The specimen is totally submitted in one cassette. SJ/ 02/18/2024 TC:2 CPT:94826v0
--- NOTE | 2024-02-17 12:42 | OP.EGD_ITS ---
Patient Name: Gabbi Singh Procedure Date: 02/17/2024 10:59 AM Date of : 1945 Age: 78 Procedure: Upper GI endoscopy Indications: Iron deficiency anemia, Melena Providers: Vincent Snowden DO Medicines: Monitored Anesthesia Care Patient Profile: This is an 78 year old female. Refer to note in patient chart for documentation of history and physical. Patient has symptoms. Complications: No immediate complications. Procedure: Pre-Anesthesia Assessment: - Prior to the procedure, a History and Physical was performed, and patient medications and allergies were reviewed. The risks and benefits of the procedure and the sedation options and risks were discussed with the patient. All questions were answered and informed consent was obtained. Patient identification and proposed procedure were verified by the physician in the pre-procedure area. Mental Status Examination: alert and oriented. Airway Examination: normal oropharyngeal airway and neck mobility. Respiratory Examination: clear to auscultation. CV Examination: normal. Prophylactic Antibiotics: The patient does not require prophylactic antibiotics. Prior Anticoagulants: The patient has taken no anticoagulant or antiplatelet agents. After reviewing the risks and benefits, the patient was deemed in satisfactory condition to undergo the procedure. The anesthesia plan was to use monitored anesthesia care (MAC). Immediately prior to administration of medications, the patient was re-assessed for adequacy to receive sedatives. The heart rate, respiratory rate, oxygen saturations, blood pressure, adequacy of pulmonary ventilation, and response to care were monitored throughout the procedure. The physical status of the patient was re-assessed after the procedure. After obtaining informed consent, the endoscope was passed under direct vision. Throughout the procedure, the patient's blood pressure, pulse, and oxygen saturations were monitored continuously. The Colonoscope was introduced through the mouth, and advanced to the second part of duodenum. The upper GI endoscopy was accomplished without difficulty. The patient tolerated the procedure well. Scope In: 11:52:03 AM Scope Out: 11:57:18 AM Total Procedure Duration Time 0 hours 5 minutes 15 seconds Findings: The examined esophagus was normal. A hiatal hernia was present. Two 4 mm angiodysplastic lesions with bleeding were found on the lesser curvature of the stomach. Coagulation for hemostasis using heater probe was successful. Estimated blood loss was minimal. No gross lesions were noted in the third portion of the duodenum. Multiple 3 mm hyperplastic polyps with no bleeding and no stigmata of recent bleeding were found in the gastric body. Impression: - Normal esophagus. - Hiatal hernia. 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 Treated with a heater probe. - No gross lesions in the third portion of the duodenum. - No specimens collected. Recommendation: - Return patient to [facility] for ongoing care. - Resume regular diet. - Continue present medications. Procedure Code(s): --- Professional --- 72488, Esophagogastroduodenoscopy, flexible, transoral; with control of bleeding, any method CPT copyright 2021 [employer]. All rights reserved. The codes documented in this report are preliminary and upon staff development coordinator review may be revised to meet current compliance requirements. Vincent Snowden DO 02/17/2024 12:42:27 PM This report has been signed electronically. Number of Addenda: 0 Note Initiated On: 02/17/2024 10:59 AM
--- NOTE | 2024-02-17 12:42 | PCM.POST.ANE ---
Anesthesia: Postop Eval I Current Vital Signs Temperature: 98.3 F Pulse Rate: 67 Blood Pressure: 135/62 Respiratory Rate: 18 Pulse Ox: 93 Oxygen Delivery Method: Nasal Cannula Oxygen Flow Rate (L/min): 2 Assessment Airway patent: Yes Spontaneous unlabored respirations: Yes Mental status: Awake and Calm nausea: No Vomiting: No Anesthesia Complication: No Fluid Hydration Crystalloid volume administer (ml): 600 Total IV fluid infused: 600 Progress Note Anesthesia document: Postop Eval 1 completed: Yes
--- NOTE | 2024-02-17 12:43 | OP.CCLET_ITS ---
02/17/2024 Michelle Johnson Re : Upper GI endoscopy procedure for Gabbi Singh Dear Max This procedure was performed on Saturday, February 17, 2024. My impressions and recommendations are as follows: Impressions : - Normal esophagus. - Hiatal hernia. 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 Treated with a heater probe. - No gross lesions in the third portion of the duodenum. - No specimens collected. Recommendations : - Return patient to [facility] for ongoing care. - Resume regular diet. - Continue present medications. My findings are described in the full procedure note, which is enclosed. If I can be of further assistance, please feel free to contact me at . Sincerely, Vincent Snowden, 02/17/2024 12:42:27 PM This report has been signed electronically.
--- NOTE | 2024-02-17 12:48 | OP.COLON_ITS ---
Patient Name: Gabbi Singh Procedure Date: 02/17/2024 11:57 AM Date of : 1945 Age: 78 Procedure: Colonoscopy Indications: Hematochezia Providers: Vincent Snowden DO Medicines: Monitored Anesthesia Care Patient Profile: This is an 78 year old female. Refer to note in patient chart for documentation of history and physical. Patient has symptoms. Last Colonoscopy: 1 year ago. Complications: No immediate complications. Procedure: Pre-Anesthesia Assessment: - Prior to the procedure, a History and Physical was performed, and patient medications and allergies were reviewed. The risks and benefits of the procedure and the sedation options and risks were discussed with the patient. All questions were answered and informed consent was obtained. Patient identification and proposed procedure were verified by the physician in the pre-procedure area. Mental Status Examination: alert and oriented. Airway Examination: normal oropharyngeal airway and neck mobility. Respiratory Examination: clear to auscultation. CV Examination: normal. Prophylactic Antibiotics: The patient does not require prophylactic antibiotics. Prior Anticoagulants: The patient has taken no anticoagulant or antiplatelet agents. After reviewing the risks and benefits, the patient was deemed in satisfactory condition to undergo the procedure. The anesthesia plan was to use monitored anesthesia care (MAC). Immediately prior to administration of medications, the patient was re-assessed for adequacy to receive sedatives. The heart rate, respiratory rate, oxygen saturations, blood pressure, adequacy of pulmonary ventilation, and response to care were monitored throughout the procedure. The physical status of the patient was re-assessed after the procedure. After I obtained informed consent, the scope was passed under direct vision. Throughout the procedure, the patient's blood pressure, pulse, and oxygen saturations were monitored continuously. The Colonoscope was introduced through the anus and advanced to the cecum, identified by appendiceal orifice and ileocecal valve. The colonoscopy was performed without difficulty. The patient tolerated the procedure well. The quality of the bowel preparation was fair. Scope In: 12:00:02 PM Scope Withdrawal Time 0 hours 29 minutes 25 seconds Scope Out: 12:33:35 PM Total Procedure Duration Time 0 hours 33 minutes 33 seconds Findings: The perianal and digital rectal examinations were normal. A few small and large-mouthed diverticula were found in the recto-sigmoid colon and sigmoid colon. An 11 mm polyp was found in the ascending colon. The polyp was pedunculated. The polyp was removed with a hot snare. Resection and retrieval were complete. Verification of patient identification for the specimen was done. Estimated blood loss was minimal. A single (solitary) six mm ulcer was found in the cecum. Oozing was present. Stigmata of recent bleeding were present. Coagulation for hemostasis using heater probe was successful. Estimated blood loss was minimal. A 7 mm polyp was found in the cecum. The polyp was sessile. The polyp was removed with a jumbo cold forceps. Resection and retrieval were complete. Verification of patient identification for the specimen was done. Estimated blood loss was minimal. Stool was found in the rectum, in the recto-sigmoid colon, in the sigmoid colon, in the transverse colon and in the cecum. Impression: - Preparation of the colon was fair. - Diverticulosis in the recto-sigmoid colon and in the sigmoid colon. - One 11 mm polyp in the ascending colon, removed with a hot snare. Resected and retrieved. - A single (solitary) ulcer in the cecum. Treated with a heater probe. - One 7 mm polyp in the cecum, removed with a jumbo cold forceps. Resected and retrieved. - Stool in the rectum, in the recto-sigmoid colon, in the sigmoid colon, in the transverse colon and in the cecum. Recommendation: - Return patient to [facility] for ongoing care. - Resume regular diet. - Continue present medications. - Await pathology results. - Repeat colonoscopy in 6 weeks for surveillance. Procedure Code(s): --- Professional --- 80611, 59, Colonoscopy, flexible; with control of bleeding, any method 33769, Colonoscopy, flexible; with removal of tumor(s), polyp(s), or other lesion(s) by snare technique 50672, 59, Colonoscopy, flexible; with biopsy, single or multiple CPT copyright 2021 [employer]. All rights reserved. The codes documented in this report are preliminary and upon radio time sales supervisor review may be revised to meet current compliance requirements. Vincent Snowden DO 02/17/2024 12:47:37 PM This report has been signed electronically. Number of Addenda: 0 Note Initiated On: 02/17/2024 11:57 AM
--- NOTE | 2024-02-17 12:48 | OP.CCLET_ITS ---
02/17/2024 Michelle Johnson Re : Colonoscopy procedure for Gabbi Singh Dear Max This procedure was performed on Saturday, February 17, 2024. My impressions and recommendations are as follows: Impressions : - Preparation of the colon was fair. - Diverticulosis in the recto-sigmoid colon and in the sigmoid colon. - One 11 mm polyp in the ascending colon, removed with a hot snare. Resected and retrieved. - A single (solitary) ulcer in the cecum. Treated with a heater probe. - One 7 mm polyp in the cecum, removed with a jumbo cold forceps. Resected and retrieved. - Stool in the rectum, in the recto-sigmoid colon, in the sigmoid colon, in the transverse colon and in the cecum. Recommendations : - Return patient to [facility] for ongoing care. - Resume regular diet. - Continue present medications. - Await pathology results. - Repeat colonoscopy in 6 weeks for surveillance. My findings are described in the full procedure note, which is enclosed. If I can be of further assistance, please feel free to contact me at . Sincerely, Vincent Snowden, 02/17/2024 12:47:37 PM This report has been signed electronically.
--- NOTE | 2024-02-17 12:51 | PCM.POSTANE2 ---
Anesthesia Postop Eval I Sum Postop Eval Completion status Anesthesia document: Postop Eval 1 completed: Yes Anesthesia Postop Eval I Summary Anesthesia Postop Eval I Summary: Anesthesia Postop Eval I: Assessment Summary Airway patent Yes 02/17/24 12:47 [email or web address] Spontaneous unlabored Yes 02/17/24 12:47 [email or web address] respirations Mental status Awake,Calm 02/17/24 12:47 [email or web address] nausea No 02/17/24 12:47 [email or web address] Vomiting No 02/17/24 12:47 [email or web address] Anesthesia Postop Eval I: Fluid Summary Crystalloid volume administer 600 02/17/24 12:47 [email or web address] (ml) Colloids volume administered ( ml) Blood Product volume administered (ml) Total IV fluid infused 600 02/17/24 12:47 [email or web address] Anesthesia Postop Eval I: Summary Notes Anesthesia Complication No 02/17/24 12:47 [email or web address] Anesthesia Complication Comment: Post-operative progress note Anesthesia: Postop Eval II Evaluation Mental status: Awake Pain Level: 0 nausea: No Vomiting: No
[2024-02-17] MEDS: Ferrous Sulfate 325 MG Tablet PO ×2 (13:44→21:53)
[2024-02-17] MEDS: SILDENAFIL CITRATE 20 MG TABLET PO ×2 (13:44→21:52)
--- NOTE | 2024-02-17 16:09 | CHAPLAIN ---
Type of Pastoral Visit _x__ Initial Visit ___ Follow-up Visit ___ On-call Visit ___ General Patient Visit ___ Spiritual Assessment ___ Family Conference ___ Bereavement ___ Rapid Response ___ Code Blue ___ Other (describe below) Pastoral Care Referral From _x__ Patient ___ Family ___ Nurse ___ Physician ___ Nurses Superintendent ___ Cyberathlete ___ Other (describe below) Sacrament/Intervention _x__ Active listening ___ Anointing ___ Mosque ___ Bereavement ___ Communion ___ Brynn exploration ___ ___ Life review _x__ Prayer ___ Reconciliation ___ Sacrament of Sick _x__ Supportive presence ___ Wedding ___ Other (describe below) Pastoral Comments patient was not in the room at first attempt; second attempt the patient was there and so was spouse; this radial drill press operator realized that both have been seen before in the hospital, the most recently; pt and spouse give updates on their health; pt is feeling that she is getting what she needs and is content; both are welcoming of prayer and presence; no other needs
[2024-02-17 16:32] LABS: Bedside Glucose 125 mg/dL (74-106)
[2024-02-17] MEDS: Ascorbic Acid 500 MG Tablet PO (21:53)
[2024-02-17 22:25] LABS: Bedside Glucose 139 mg/dL (74-106)
--- NOTE | 2024-02-17 23:14 | CPS ---
Pt has been on own cpap with 2L bleed in
[2024-02-18 03:23] VITALS: BP 133/78; PULSE 52; RESP 22; TEMP 36.9; O2SAT 100
[2024-02-18 03:26] VITALS: BMI 39.8
[2024-02-18] MEDS: Pantoprazole Sodium 80 MG in 0.9% Normal Saline (100mL Bag) 80 ML 10 MG CONT INF (03:36)
[2024-02-18] MEDS: Octreotide 0.5 MG in Dextrose 5%-Water (250mL Bag) 249 ML 25 MG CONT INF (03:36)
[2024-02-18] MEDS: SILDENAFIL CITRATE 20 MG TABLET PO ×2 (05:31→13:35)
[2024-02-18 06:45] LABS: Absolute Lymphocyte Count 0.82 X10^3/uL (0.83-4.51); Absolute Neutrophil Count 7.4 X10^3/uL (2.0-7.7); Basophil# 0.03 X10^3/uL; Basophil% 0.3 % (0-1); Eosinophil# 0.14 X10^3/uL; Eosinophils% 1.6 % (0-5); Hematocrit 26.7 % (37-47); Hemoglobin 8.2 g/dL (12.0-15.0); Lymphocyte # 0.82 X10^3/ul (0.83-4.51); Lymphocyte % 9.2 % (19-41); Mean Corp Hgb Conc 30.7 g/dL (32-36); Mean Corpuscular Hgb 28.1 pg (27.0-32.0); Mean Corpuscular Volume 91.4 fL (81-99); Monocyte# 0.49 X10^3/uL; Monocyte% 5.5 % (0-10); NRBC Flagged by Analyzer 0 % (0-5); Neutrophil # 7.39 X10^3/uL (2.7-7.7); Platelet Count 250 K/mm3 (150-450); RBC Distribution Width CV 12.7 % (11.6-14.6); RBC Distribution Width SD 42.3 fl (35.1-43.9); Red Blood Count 2.92 M/mm3 (4.2-5.4); White Blood Count 8.9 K/mm3 (4.4-11.0)
[2024-02-18 07:11] VITALS: O2SAT 95
[2024-02-18 07:20] LABS: Bedside Glucose 117 mg/dL (74-106)
[2024-02-18 07:32] LABS: Anion Gap 7 (5-15); BUN 28 mg/dL (7-18); BUN/Creat Ratio 16.8 RATIO (10-20); Calcium,Total 8.5 mg/dL (8.5-10.1); Chloride 102 mmol/L (98-107); Creatinine, Serum 1.67 mg/dL (0.55-1.02); EST Glomerular Filtration Rate 31 mL/min (>60); Est Glom Filt Rate - Afr Amer 38 mL/min (>60); Estimated Creatinine Clearance 34.08 ml/min; Glucose 115 mg/dL (74-106); Magnesium 1.9 mg/dL (1.6-2.6); Phosphorus 3.2 mg/dL (2.5-4.9); Potassium 3.6 mmol/L (3.5-5.1); Sodium Level 138 mmol/L (136-145)
--- NOTE | 2024-02-18 08:12 | DS.PCM_ITS ---
Providers Date of Admission: 02/13/24 Date of Discharge: 02/18/24 Primary Care Physician: Chiquis Santana, ROSALIND Consultations 02/14/24 00:38 Consult: Gastroenterology Routine Consulting Provider: [facility] Reason for Consult: GI bleed, ABLA, known colonic AVMs. EMERGENT Consult: No MD Notified: Yes Date Notified: 02/13/24 Time Notified: 23:07 Method of Notification: Text Reason For Visit: GI BLEED, ABLA, ELEVATED TROP, FUO Diagnosis Discharge Diagnosis (1) Acute GI bleeding: Status: Acute Code(s): K92.2 - Gastrointestinal hemorrhage, unspecified (2) Elevated troponin: Status: Acute Code(s): R79.89 - Other specified abnormal findings of blood chemistry (3) Acute blood loss anemia: Status: Acute Code(s): D62 - Acute posthemorrhagic anemia (4) FUO (fever of unknown origin): Status: Acute Code(s): R50.9 - Fever, unspecified Plan Patient is an 78-year-old lady with history of previous GI bleed with known colonic AVMs status post clipping and cauterization who presented with abnormal labs. Hemoglobin on admission was 7.0 1. Anemia ? Secondary to acute blood loss anemia secondary to GI bleed. Patient admitted to a monitored bed. Patient was transfused with 2 unit PRBC 1. Acute GI bleed ? Patient has known history of colonic AVMs with priorr multiple clippings and cauterizations at [facility] felt not an appropriate candidate for surgical management. Patient was started on Protonix drip in addition to octreotide consult placed to GI patient seen by Dr. Snowden. Recommended for patient to undergo both upper and lower GI endoscopy Colonoscopy result ? Diverticulosis in the recto-sigmoid colon and in the sigmoid colon. - One 11 mm polyp in the ascending colon, removed with a hot snare. Resected and retrieved. - A single (solitary) ulcer in the cecum. Treated with a heater probe. - One 7 mm polyp in the cecum, removed with a jumbo cold forceps. Resected and retrieved. Upper EGD result - Normal esophagus. - Hiatal hernia. 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 Treated with a heater probe. - No gross lesions in the third portion of the duodenum. - No specimens collected. Patient to follow-up with Dr Snowden as outpatient for biopsy results 3. Elevated troponin ? Secondary to myocardial ischemia from GI bleed. Echo demonstrated EF of 65% 4. Acute on chronic congestive heart failure with preserved ejection fraction Echo from 06/11/2023 did show LVEF 70?5%, LV systolic function normal, grade 3 LV diastolic dysfunction, RV normal size, RV systolic function normal, severely dilated LA, moderately dilated RA, Navarrete JONES prosthetic aortic valve size #26 present.. Patient managed with noninvasive ventilation BiPAP diuretic therapy with repeat echo ordered 5. Acute hypoxic respiratory failure ? Secondary to congestive heart failure patient placed on BiPAP in addition to furosemide 6. Bacteremia - 1 of 2 for S. epidermidis this was felt to be contaminant patient had received vancomycin subsequently discontinued 7. Valvular heart disease ? History of prostatic aortic valve 8. Hypertension - Blood pressure controlled, home medications continued with dose adjustment as needed 9. Diabetes mellitus type 2 ? Managed with diet. Placed on Accu-Cheks ACHS with sliding scale coverage 10. Dyslipidemia ? Patient apparently did not tolerate statins in the past 11. Acute kidney injury superimposed on chronic kidney disease stage III ? Creatinine on admission was 2.06 has improved to 1.5 to subsequent monitoring with daily BMPs ordered 12. Chronic persistent A-fib ? Rate controlled. Currently undergoing evaluation for possible Watchman. Patient not a candidate for systemic anticoagulation due to recurrent GI bleed 13. GERD ? On PPI 14. Pulmonary hypertension ? Patient is on sildenafil 15. Obstructive sleep apnea ? CPAP at night 16. History of VTE ? Status post IVC filter placement 09/2018 17. DVT prophylaxis ? Bilateral SCDs Time spent in the patient's overall evaluation,decision-making process, review of diagnostic data, adjustment of management, discussion with other providers, nursing nursing and ancillary staff involved in patient's care documentation, 35 Minutes Medications at Discharge Home Medications sildenafil (pulm.hypertension) 20 mg tablet 20 mg PO TID PULMONARY HTN 11/18/17 magnesium 250 mg tablet 250 mg PO DAILY SUPPLEMENT 10/09/18 ferrous sulfate 325 mg (65 mg iron) tablet (Melissa-Time) 325 mg PO BID SUPPLEMENT 04/14/19 ascorbic acid (vitamin C) 500 mg capsule 500 mg PO DAILY SUPPLEMENT 05/10/20 cyanocobalamin (vitamin B-12) 2,500 mcg sublingual lozenge 2,500 mcg sublingual QODAY SUPPLEMENT 05/10/20 pantoprazole 40 mg tablet,delayed release 40 mg PO DAILY ACID REFLUX 03/06/21 furosemide 40 mg tablet 40 mg PO DAILY CHF #30 tabs 07/30/23 cholecalciferol (vitamin D3) 50 mcg (2,000 unit) capsule 50 mcg PO DAILY supplement 08/08/23 amlodipine 10 mg tablet 10 mg PO DAILY BLOOD PRESSURE #90 tabs 12/11/23 Hospital Course Procedures Colonoscopy and EGD Physical Exam Narrative GENERAL: cooperative HEENT: Atraumatic; normocephalic EYES; Anicteric, Normal Conjunctiva NECK; supple, normal thyroid, RESPIRATORY: Diminished to auscultation CARDIOVASCULAR: Regular S1 S2, GI: soft, normoactive bowel sounds, : No Renal angle tenderness; EXTREMITIES: No edema, no clubbing, MUSCULOSKELETAL: no muscle wasting NEURO: Awake; no lateralizing signs. SKIN: No Rash PSYCH; Flat affect Weight / BMI Weight Weight: 111.9 kg Body Mass Index (BMI) 39.8 ABG / Lab / Microbiology Data 02/18/24 05:27 02/18/24 05:27 Laboratory: Laboratory Results - last 24 hr 02/17/24 09:58: POC Glucose 133 H 02/17/24 16:12: POC Glucose 125 H 02/17/24 21:59: POC Glucose 139 H 02/18/24 05:27: WBC 8.9, RBC 2.92 L, Hgb 8.2 L, Hct 26.7 L, MCV 91.4, MCH 28.1, MCHC 30.7 L, RDW Std Deviation 42.3, RDW Coeff of Fariba 12.7, Plt Count 250, MPV 12.0, Immature Gran % (Auto) 0.400, Neut % (Auto) 83.0 H, Lymph % (Auto) 9.2 L, Schuyler % (Auto) 5.5, Eos % (Auto) 1.6, Baso % (Auto) 0.3, Absolute Neuts (auto) 7.4, Absolute Lymphs (auto) 0.82 L, Nucleated RBC % 0, Sodium 138, Potassium 3.6, Chloride 102, Carbon Dioxide 29.0, Anion Gap 7, BUN 28 H, Creatinine 1.67 H , Estim Creat Clear Calc 34.08, Est GFR (MDRD) Af Amer 38 L, Est GFR (MDRD) Non- Af 31 L, BUN/Creatinine Ratio 16.8, Glucose 115 H, Calcium 8.5, Phosphorus 3.2, Magnesium 1.9 02/18/24 07:02: POC Glucose 117 H Microbiology: Microbiology 02/13/24 19:01 Blood Culture (Wb) - Port Blood Culture - Final Staphylococcus epidermidis 02/13/24 19:30 Blood Culture (Wb) - Port Bacteria Detection (PCR) - Final Staphylococcus epidermidis 02/13/24 19:30 Blood Culture (Wb) - Port Blood Culture - Final Staphylococcus epidermidis 02/13/24 23:05 Mucosa - Nose Respiratory Panel (PCR) - Final 02/13/24 21:05 Mucosa - Nose SARS-CoV-2, Influenza & RSV (PCR) - Final 02/13/24 21:31 Stool Stool Occult Blood (LASHAUN) - Final Occult Blood Positive D/C Instructions Discharge Diet: No restrictions Discharge Activity: Return to Normal Activity Call your doctor if you observe: Fever of 101 or Higher, Shortness of breath, Fainting spells and Chest pain Meaningful Use Info Meaningful Use Meaningful Use Diagnoses (Choose all that apply): None applicable Ischemic Stroke Statin Dosing Therapy Reference: STATIN DOSE THERAPY REFERENCE: * Patients > 75 years receive moderate or high dose statin therapy. * Patients 75 years or YOUNGER should receive HIGH intensity statin dose unless contraindicated. You will be required to document reason for non-treatment if statin daily dose does not meet guidelines. HIGH DOSE STATIN THERAPY DAILY Atorvastatin > than or = to 40 mg Rosuvastatin > than or = to 20 mg Amlodipine + Atorvastatin > than or = to 2.5/40 mg Ezetimibe + Simvastatin 10/80 mg Simvastatin 80mg Discharge Plan Admission Admit Date/Time: 02/13/24 23:04 Attending Provider: Eric Fontaine Primary Care Provider: Chiquis Santana Consulting Providers: Nohemi Walker; Zeus Vera Discharge Orders/Prescriptions Prescriptions: Continued magnesium 250 mg tablet 250 mg PO DAILY ferrous sulfate [Melissa-Time] 325 mg (65 mg iron) tablet 325 mg PO BID cyanocobalamin (vitamin B-12) 2,500 mcg lozenge 2,500 mcg sublingual QODAY ascorbic acid (vitamin C) 500 mg capsule 500 mg PO DAILY cholecalciferol (vitamin D3) 50 mcg (2,000 unit) capsule 50 mcg PO DAILY pantoprazole 40 mg tablet,delayed release (DR/EC) 40 mg PO DAILY sildenafil (pulm.hypertension) 20 MG tablet 20 mg PO TID furosemide 40 mg tablet 40 mg PO DAILY Qty: 30 2RF amlodipine 10 mg tablet 10 mg PO DAILY Qty: 90 3RF Referrals / Follow Up: Vincent Snowden DO [Med Staff - Active Staff] - Within 2 Weeks Chiquis Santana NP-C [Primary Care Provider] - Within 2 Weeks Disposition Disposition (needs filled in before D/C Order can be placed): Home, Self Care Charges/Coding Visit Charges Inpatient E&M: 80909 Disch Hosp >30min
[2024-02-18 08:50] VITALS: BP 127/77; PULSE 60; RESP 18; TEMP 36.8; O2SAT 96
[2024-02-18] MEDS: amLODIPine 10 MG Tablet PO (08:51)
[2024-02-18] MEDS: Ferrous Sulfate 325 MG Tablet PO (08:51)
[2024-02-18] MEDS: Furosemide 40 MG/4 ML Vial IV (08:51)
[2024-02-18] MEDS: 0.9% Saline Lock 10 ML Syringe IV ×2 (08:51→14:32)
[2024-02-18] MEDS: Magnesium Chloride 64 MG Delay Rel.Tablet PO (08:51)
[2024-02-18 10:30] VITALS: O2SAT 90; O2SAT 94
[2024-02-18 11:55] LABS: Bedside Glucose 143 mg/dL (74-106)
--- NOTE | 2024-02-18 13:14 | CASEMGMT ---
Patient has order for discharge. RN CM in to discuss needs at discharge, at bedside. Patient denies needs or help at discharge, states she feels she is at her baseline. Patient and had no further questions or concerns.
[2024-02-18 14:32] VITALS: BP 115/45; PULSE 60; RESP 18; TEMP 36.5; O2SAT 94
== END 2024-02-18 16:06 | disposition home or self-care (01) | DRG 377 ==
LOC: ED 23:03 → PCU 23:33
PROVIDERS: Anesthesiology; Internal Medicine Gastroenterology; Admitting Provider Family Medicine; Emergency Provider Emergency Medicine; PCP Nurse Practitioner Family; Visit Provider Internal Medicine
PROC: 0DJD8ZZ Inspection of Lower Intestinal Tract, Via Natural or Artificial Opening Endoscopic (ICD-10-PCS; CPT 45378; principal; 2024-02-17 11:25)
DX: K31.811 Angiodysplasia of stomach and duodenum with bleeding (principal); J96.01 Acute respiratory failure with hypoxia; I50.33 Acute on chronic diastolic (congestive) heart failure; K63.3 Ulcer of intestine; I24.89 Other forms of acute ischemic heart disease; D62 Acute posthemorrhagic anemia; N18.4 Chronic kidney disease, stage 4 (severe); I13.0 Hypertensive heart and chronic kidney disease with heart failure and stage 1 through stage 4 chronic kidney disease, or unspecified chronic kidney disease; Z68.41 Body mass index [BMI] 40.0-44.9, adult; I48.19 Other persistent atrial fibrillation; D69.6 Thrombocytopenia, unspecified; D63.1 Anemia in chronic kidney disease; I27.20 Pulmonary hypertension, unspecified; E11.22 Type 2 diabetes mellitus with diabetic chronic kidney disease; E66.01 Morbid (severe) obesity due to excess calories; E78.5 Hyperlipidemia, unspecified; K21.9 Gastro-esophageal reflux disease without esophagitis; G47.33 Obstructive sleep apnea (adult) (pediatric); I25.10 Atherosclerotic heart disease of native coro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 pectoris; K44.9 Diaphragmatic hernia without obstruction or gangrene; D50.9 Iron deficiency anemia, unspecified; K57.30 Diverticulosis of large intestine without perforation or abscess without bleeding; K63.5 Polyp of colon; Z95.2 Presence of prosthetic heart valve; Z51.5 Encounter for palliative care; Z66 Do not resuscitate
CPT/HCPCS: 36415; 36591; 71045; 80048; 80053; 80061; 80076; 81001; 82150; 82274; 82962; 83605; 83615; 83690; 83735; 83880; 84100; 84145; 84484; 85014; 85018; 85025; 85610; 85652; 85730; 86140; 86850; 86900; 86901; 86920; 87040; 87077; 87149; 87186; 87631; 87633; 88305; 93005; 93306; 94002; 94003; 94668; 94762; 97162; 97166; 97535; 99285; J7030; J7040; J7120; P9016; Q9957; A4216; C8929; J1940; J2405

== ENCOUNTER → 2024-02-13 | Outpatient (CLI) | payer MEDICARE, OTHER, SELFPAY ==
[2024-02-13 12:29] LABS: Absolute Neutrophil Count 8.2 X10^3/uL (2.0-7.7); Basophil# 0.03 X10^3/uL; Basophil% 0.3 % (0-1); Eosinophil# 0.02 X10^3/uL; Eosinophils% 0.2 % (0-5); Hematocrit 23.9 % (37-47); Hemoglobin 7.4 g/dL (12.0-15.0); Mean Corpuscular Volume 93.7 fL (81-99); Mean Platelet Vol. 12.2 fl (6.2-12.0); Monocyte# 0.74 X10^3/uL; Monocyte% 7.4 % (0-10); NRBC Flagged by Analyzer 0 % (0-5); Neutrophil # 8.23 X10^3/uL (2.7-7.7); Neutrophil % 82.7 % (47-70); Platelet Count 198 K/mm3 (150-450); RBC Distribution Width CV 12.9 % (11.6-14.6); RBC Distribution Width SD 44.4 fl (35.1-43.9); Red Blood Count 2.55 M/mm3 (4.2-5.4)
[2024-02-13 12:44] LABS: ALB/GLOB Ratio 0.9 RATIO (0.9-2.4); AST(SGOT) 8 U/L (15-37); Alanine Aminotransfer ALT/SGPT 12 U/L (13-56); Albumin, Serum 3.4 g/dL (3.2-5.0); Alkaline Phosphatase 89 U/L (45-117); Anion Gap 8 (5-15); BUN 51 mg/dL (7-18); BUN/Creat Ratio 24.8 RATIO (10-20); Calcium,Total 8.8 mg/dL (8.5-10.1); Chloride 105 mmol/L (98-107); Creatinine, Serum 2.06 mg/dL (0.55-1.02); EST Glomerular Filtration Rate 25 mL/min (>60); Est Glom Filt Rate - Afr Amer 30 mL/min (>60); Globulin 3.6 g/dL (2.2-4.2); Glucose 159 mg/dL (74-106); Potassium 4.2 mmol/L (3.5-5.1); Sodium Level 137 mmol/L (136-145)
== END | disposition home or self-care (01) ==
LOC: LAB.FUTURE 12:15 → LAB 12:17
PROVIDERS: PCP Nurse Practitioner Family; Visit Provider Nurse Practitioner Family
DX: R50.9 Fever, unspecified (principal)
CPT/HCPCS: 80053; 85025; 86140

== ENCOUNTER 2024-03-09 13:21 | Outpatient (CLI) | payer MEDICARE, OTHER, SELFPAY ==
[2024-03-09 13:41] LABS: Absolute Lymphocyte Count 1.03 X10^3/uL (0.83-4.51); Absolute Neutrophil Count 4.6 X10^3/uL (2.0-7.7); Basophil# 0.04 X10^3/uL; Basophil% 0.7 % (0-1); Eosinophils% 1.6 % (0-5); Hematocrit 24.3 % (37-47); Hemoglobin 7.4 g/dL (12.0-15.0); Lymphocyte # 1.03 X10^3/ul (0.83-4.51); Lymphocyte % 16.9 % (19-41); Mean Corp Hgb Conc 30.5 g/dL (32-36); Mean Corpuscular Hgb 28.6 pg (27.0-32.0); Mean Corpuscular Volume 93.8 fL (81-99); Monocyte# 0.29 X10^3/uL; Monocyte% 4.8 % (0-10); NRBC Flagged by Analyzer 0 % (0-5); Neutrophil % 75.7 % (47-70); Platelet Count 162 K/mm3 (150-450); RBC Distribution Width CV 14.9 % (11.6-14.6); RBC Distribution Width SD 51.5 fl (35.1-43.9); Red Blood Count 2.59 M/mm3 (4.2-5.4); White Blood Count 6.1 K/mm3 (4.4-11.0)
[2024-03-09 13:58] LABS: ALB/GLOB Ratio 0.9 RATIO (0.9-2.4); AST(SGOT) 14 U/L (15-37); Alanine Aminotransfer ALT/SGPT 20 U/L (13-56); Albumin, Serum 3.4 g/dL (3.2-5.0); Alkaline Phosphatase 78 U/L (45-117); Anion Gap 7 (5-15); BUN 44 mg/dL (7-18); BUN/Creat Ratio 26.3 RATIO (10-20); Calcium,Total 8.6 mg/dL (8.5-10.1); Chloride 106 mmol/L (98-107); Creatinine, Serum 1.67 mg/dL (0.55-1.02); EST Glomerular Filtration Rate 31 mL/min (>60); Est Glom Filt Rate - Afr Amer 38 mL/min (>60); Ferritin 192 ng/mL (8-252); Globulin 3.9 g/dL (2.2-4.2); Glucose 134 mg/dL (74-106); Iron 32 ug/dL (50-170); Iron Binding Capacity,Total 260 ug/dL (250-450); PERCENT IRON SATURATION 12.3 % (15.0-55.0); Potassium 3.8 mmol/L (3.5-5.1); Protein, Total 7.3 g/dL (6.4-8.2); Sodium Level 140 mmol/L (136-145)
== END 2024-03-09 23:59 | disposition home or self-care (01) ==
LOC: MEDOUTP 13:22
PROVIDERS: PCP Nurse Practitioner Family; Referring Provider Nurse Practitioner Family; Visit Provider Nurse Practitioner Family
DX: D50.0 Iron deficiency anemia secondary to blood loss (chronic) (principal); K92.2 Gastrointestinal hemorrhage, unspecified
CPT/HCPCS: 36591; 80053; 82728; 83540; 83550; 85025; A4216

== ENCOUNTER 2024-03-11 08:07 | Outpatient (CLI) | payer MEDICARE, OTHER, SELFPAY ==
[2024-03-11 08:36] LABS: Absolute Lymphocyte Count 0.74 X10^3/uL (0.83-4.51); Absolute Neutrophil Count 4.7 X10^3/uL (2.0-7.7); Basophil# 0.03 X10^3/uL; Basophil% 0.5 % (0-1); Eosinophil# 0.04 X10^3/uL; Eosinophils% 0.7 % (0-5); Hematocrit 24.5 % (37-47); Hemoglobin 7.6 g/dL (12.0-15.0); Lymphocyte # 0.74 X10^3/ul (0.83-4.51); Lymphocyte % 12.8 % (19-41); Mean Corpuscular Volume 93.5 fL (81-99); Mean Platelet Vol. 11.7 fl (6.2-12.0); Monocyte# 0.24 X10^3/uL; Monocyte% 4.1 % (0-10); NRBC Flagged by Analyzer 0 % (0-5); Neutrophil # 4.72 X10^3/uL (2.7-7.7); Neutrophil % 81.6 % (47-70); Platelet Count 167 K/mm3 (150-450); RBC Distribution Width SD 51.6 fl (35.1-43.9); Red Blood Count 2.62 M/mm3 (4.2-5.4); White Blood Count 5.8 K/mm3 (4.4-11.0)
[2024-03-11 08:51] LABS: Anion Gap 7 (5-15); BUN 35 mg/dL (7-18); BUN/Creat Ratio 21.7 RATIO (10-20); CRP < 2.90 mg/L (0.0-3.0); Calcium,Total 9.1 mg/dL (8.5-10.1); Chloride 107 mmol/L (98-107); Creatinine, Serum 1.61 mg/dL (0.55-1.02); EST Glomerular Filtration Rate 33 mL/min (>60); Est Glom Filt Rate - Afr Amer 40 mL/min (>60); Glucose 141 mg/dL (74-106); Potassium 3.7 mmol/L (3.5-5.1); Sodium Level 141 mmol/L (136-145)
[2024-03-11 09:02] LABS: Lactic Acid 0.9 mmol/L (0.4-1.9)
[2024-03-11 09:04] LABS: International Normalized Ratio 1.2; Prothrombin Time (Protime)PT. 15.3 SECONDS (11.7-14.9)
== END 2024-03-11 23:59 | disposition home or self-care (01) ==
LOC: MEDOUTP 08:07
PROVIDERS: PCP Nurse Practitioner Family; Referring Provider Nurse Practitioner Family; Visit Provider Nurse Practitioner Family
DX: D50.0 Iron deficiency anemia secondary to blood loss (chronic) (principal); K92.2 Gastrointestinal hemorrhage, unspecified
CPT/HCPCS: 36591; 80048; 83605; 85025; 85610; 85730; 86140; A4216

== ENCOUNTER 2024-03-17 09:43 | Outpatient (CLI) | payer MEDICARE, OTHER, SELFPAY ==
[2024-03-17 10:06] LABS: Absolute Lymphocyte Count 0.68 X10^3/uL (0.83-4.51); Absolute Neutrophil Count 5.3 X10^3/uL (2.0-7.7); Basophil# 0.03 X10^3/uL; Basophil% 0.5 % (0-1); Eosinophil# 0.05 X10^3/uL; Eosinophils% 0.8 % (0-5); Hematocrit 24.8 % (37-47); Hemoglobin 7.5 g/dL (12.0-15.0); Lymphocyte # 0.68 X10^3/ul (0.83-4.51); Lymphocyte % 10.7 % (19-41); Mean Corp Hgb Conc 30.2 g/dL (32-36); Mean Corpuscular Hgb 28.2 pg (27.0-32.0); Mean Corpuscular Volume 93.2 fL (81-99); Mean Platelet Vol. 11.7 fl (6.2-12.0); Monocyte# 0.34 X10^3/uL; Monocyte% 5.3 % (0-10); NRBC Flagged by Analyzer 0 % (0-5); Neutrophil # 5.25 X10^3/uL (2.7-7.7); Neutrophil % 82.2 % (47-70); Platelet Count 184 K/mm3 (150-450); RBC Distribution Width CV 14.9 % (11.6-14.6); RBC Distribution Width SD 51.1 fl (35.1-43.9); Red Blood Count 2.66 M/mm3 (4.2-5.4); White Blood Count 6.4 K/mm3 (4.4-11.0)
== END 2024-03-17 23:59 | disposition home or self-care (01) ==
LOC: MEDOUTP 09:43
PROVIDERS: PCP Nurse Practitioner Family; Referring Provider Nurse Practitioner Family; Visit Provider Nurse Practitioner Family
DX: K92.2 Gastrointestinal hemorrhage, unspecified (principal)
CPT/HCPCS: 36591; 85025; A4216

== ENCOUNTER 2024-04-03 19:05 | Inpatient (IN) | payer MEDICARE, OTHER, SELFPAY ==
[2024-04-03] VITALS (8 sets, daily range): BP systolic 144–198; BP diastolic 55–81; PULSE 68–100; RESP 18–28; TEMP 36.6–37.8; O2SAT 89–95; BMI 43.0; BMI 42.7
--- NOTE | 2024-04-03 19:30 | EX.ED.DYSGE1 ---
HPI History of Present Illness Chief Complaint: Fever [facility] Medical History Wears hearing aid Loss of hearing Wears glasses Gout Walker as ambulation aid Low iron Syncope History of ulceration GERD (gastroesophageal reflux disease) Shortness of breath on exertion Non-smoker Chronic kidney disease (CKD) History of renal disease History of edema History of stress test Cardiology follow-up encounter History of echocardiogram History of atrial fibrillation Pneumonia COVID-19 Obstructive sleep apnea Chronic kidney disease, stage 3b Pleural effusion on left 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 shelter (current) use of anticoagulants Anemia of chronic renal failure, stage 3 (moderate) Nonobstructive atherosclerosis of coronary artery Longstanding persistent atrial fibrillation Acute blood loss anemia (09/24/20) Iron deficiency anemia due to chronic blood loss Chronic GI bleeding Chronic diastolic (congestive) heart failure Type 2 diabetes mellitus Essential (primary) hypertension Presence of IVC filter (09/2018) Anemia in chronic kidney disease (CKD) Acute kidney injury Bloody stool Knee pain Anemia Arthritis Hyperkalemia Non-ST elevation (NSTEMI) myocardial infarction (12/09/16) Nonrheumatic aortic (valve) stenosis Nonrheumatic mitral (valve) insufficiency Nonrheumatic tricuspid (valve) insufficiency Other secondary pulmonary hypertension Sepsis secondary to UTI Fatigue History of pneumonia Osteopenia Liver disease History of GI bleed Diverticulitis History of blood transfusion Morbid obesity Iron deficiency anemia Hyperlipidemia Home Medications ?Medication ?Instructions ?Recorded ?Last Taken ?Type sildenafil (pulm.hypertension) 20 20 mg PO TID PULMONARY HTN 11/18/17 04/03/24 13:33 History mg tablet magnesium 250 mg tablet 250 mg PO DAILY SUPPLEMENT 10/09/18 04/02/24 History ferrous sulfate 325 mg (65 mg 325 mg PO TID SUPPLEMENT 04/14/19 04/03/24 13:34 History iron) tablet (Melissa-Time) ascorbic acid (vitamin C) 500 mg 500 mg PO DAILY SUPPLEMENT 05/10/20 04/03/24 History capsule cyanocobalamin (vitamin B-12) 2,500 mcg sublingual .3XWEEK 05/10/20 04/03/24 History 2,500 mcg sublingual lozenge SUPPLEMENT pantoprazole 40 mg tablet,delayed 40 mg PO DAILY ACID REFLUX 03/06/21 04/03/24 History release furosemide 40 mg tablet 40 mg PO DAILY CHF #30 tabs 07/30/23 04/03/24 Rx cholecalciferol (vitamin D3) 50 50 mcg PO DAILY supplement 08/08/23 04/03/24 History mcg (2,000 unit) capsule amlodipine 10 mg tablet 10 mg PO DAILY BLOOD PRESSURE #90 12/11/23 04/03/24 Rx tabs Allergy/AdvReac Type Severity Reaction Status Date / Time pravastatin AdvReac Severe severe Verified 04/03/24 19:07 muscle and joint pain Family History Mother , age 83 Uterine cancer Hypertension Father , age 81 Heart disease Diabetes CAD (coronary artery disease) Hypertension Surgical History History of esophagogastroduodenoscopy (EGD) History of colonoscopy History of hysterectomy History of root canal procedure H/O aortic valve replacement (09/15/18) coil embolization of colonic artery History of left heart catheterization (LHC) (04/10/17) Status post right foot surgery History of hysterectomy History of appendectomy Social History household members: spouse housing: house Smoking Status: Never smoker alcohol intake: never substance use type: does not use caffeine: No what type of physical activity do you participate in: none divina/congregational: Mennonite seatbelt use: always do you feel safe at home: Yes EXAM Physical Exam Const Vital Signs: 04/03/24 19:07 04/03/24 19:15 04/03/24 19:15 Temperature 99.9 F H Temperature Source Temporal Pulse Rate 100 Respiratory Rate 22 H 20 H Respiratory Effort Respiratory Pattern Blood Pressure 191/61 H Blood Pressure Mean 104 Pulse Ox 93 91 Oxygen Delivery Method Room Air Room Air Room Air Fraction of Inspired Oxygen (FIO2) 04/03/24 19:20 04/03/24 19:27 04/03/24 19:29 Temperature 100.1 F H Temperature Source Oral Pulse Rate 90 Respiratory Rate 25 H Respiratory Effort Short of Breath Respiratory Pattern Tachypnea Blood Pressure 198/81 H Blood Pressure Mean 120 Pulse Ox 89 93 Oxygen Delivery Method Room Air Nasal Cannula Fraction of Inspired Oxygen (FIO2) 3 04/03/24 20:43 04/03/24 22:00 Temperature 99.9 F H 98.1 F Temperature Source Oral Pulse Rate 68 Respiratory Rate 28 H Respiratory Effort Respiratory Pattern Blood Pressure 168/55 H Blood Pressure Mean 92 Pulse Ox 92 Oxygen Delivery Method Fraction of Inspired Oxygen (FIO2) [facility] [place] Medical decision making narrative: HISTORY OF PRESENT ILLNESS: 78-year-old female with a past medical history notable for morbid obesity, diabetes, chronic renal failure, hypertension, chronic atrial fibrillation, was on long-term anticoagulation (had to be held in 2018) and chronic and episodic acute GI blood loss from colonic AVMs notes fever not feeling began at noon. Notes she took her home amlodipine earlier today. She states she does not have a cough belly pain has not been having vomiting or diarrhea. Denies any urinary complaints. She does note some difficulty breathing. REVIEW OF SYSTEMS: Pertinent positives: Shortness of breath, fever Pertinent negatives: Chest pain, leg swelling PHYSICAL EXAM: Nursing triage notes reviewed, Vital signs reviewed Constitutional: please see mdm HENT: MMM Eyes: Pupils equal round and reactive to light, Extraocular muscles intact Neck: No stridor, no JVD, full neck ROM Lungs: Clear to auscultation, No tachypnea, conversational dyspnea noted. no accessory muscle use, no nasal flaring. No respiratory distress noted Heart: Regular rate and rhythm, No murmurs, No rubs and No gallops, 2+ distal pulses (radial, femoral, posterior tibial) in all extremities Abdomen: Soft, there is no tenderness, rigidity, rebound or guarding, no obvious peritoneal signs, no palpable pulsatile abdominal masses, no auscultated abdominal bruit : No CVAT Extremities: No edema Neuro: No focal neurological deficits, cranial nerves II through XII intact, 5/5 strength in all extremities. Intact sensation to light touch in all extremities, 2+ reflexes bilateral patella tendons. Normal gait. No ataxia. Skin: No rash or lesions noted MEDICAL DECISION MAKING: Chief Complaint: Fever External records reviewed: Reviewed prior outpatient visit. Factors affecting care: Status post aortic valve replacement, CHF, iron deficiency anemia Social determinants of health: none History obtained from others: Patient's Consults: Internal medicine MDM Narrative: Patient was initially borderline febrile with a temperature of 99.9 she was also hypertensive with a blood pressure 191/61 she was tachypneic with respiratory initially of 22 down to 20. She is saturating 91% on room air. Patient was placed on supplemental oxygen given a pulse ox of I considered the following differential diagnosis: Pneumonia, COVID, flu, anemia, CHF, ACS, PE I obtained a broad lab and imaging workup to further elucidate the etiology the patient complaint Lactate and blood cultures were drawn per sepsis protocol. I added additional studies including chest x-ray, COVID, CBC, BMP, BNP, ALL IMAGES (IF OBTAINED) HAVE BEEN PERSONALLY REVIEWED AND INTERPRETED BY MYSELF. EKG with rate controlled atrial fibrillation rate of 93, normal axis, normal intervals, no STEMI Chest x-ray was read and reviewed person by myself shows evidence of left lower lobe pneumonia. Radiologist agrees my interpretation. CBC with leukocytosis suggestive of systemic inflammation, Improved hemoglobin from prior however still having significant anemia, no thrombocytopenia BMP Shows hyponatremia at 135, no other significant [place] normalities, no evidence of metabolic acidosis or endorgan hypoperfusion with a normal bicarb and anion gap respectively. Further show CKD Lactate is wnl indicating no end-organ hypoperfusion and/or hypoxia. BNP slightly elevated consistent with increased ventricular stretch UA positive for infection Initial troponin grossly elevated consistent with myocardial ischemia. There are no EKG changes to suggest STEMI I suspect this is demand ischemia from relative hypoxia, anemia and community-acquired pneumonia. Given multiple infectious sources and signs of sepsis I gave the patient ceftriaxone and azithromycin for antimicrobial therapy. Given patient's signs of endorgan hypoperfusion, signs of systemic inflammation and obvious foci of infection patient will need inpatient admission. Discussed the case with hospitalist Dr. Mario agree to admit the patient to the PCU The patient and/or family, caregivers express understanding. The patient and/or family, caregivers agrees with the plan. Shared decision making: I will have a discussion with the patient and or visitors regarding risk/benefits of further testing or admission. They will be made aware of of the risk/benefits inherent in this decision they will be given the opportunity to voice understanding. Total critical care time today provided was at least 35 minutes. This excludes separately billable procedures. Critical care time (if documented) is secondary to the patient having high probability of clinically significant/life threatening deterioration in the patient's condition which required my urgent intervention. Impression: 1. Community-acquired pneumonia 2. UTI 3. Elevated troponin Dispo: Admit to PCU This note was generated with Dragon dictation software. It may contain incorrect words, spelling, and punctuation that were not noted in review of the chart prior to signing. Lab Data Labs: Laboratory Results - last 24 hr 04/03/24 04/03/24 04/03/24 19:33 19:40 19:41 WBC 11.8 H RBC 3.08 L Hgb 8.5 L Hct 27.3 L MCV 88.6 MCH 27.6 MCHC 31.1 L RDW Std Deviation 45.6 H RDW Coeff of Fariba 14.1 Plt Count 228 MPV 11.2 Sodium 135 L Potassium 3.7 Chloride 104 Carbon Dioxide 23.0 Anion Gap 8 BUN 31 H Creatinine 1.57 H Estim Creat Clear Calc 37.85 Est GFR (MDRD) Af Amer 41 L Est GFR (MDRD) Non-Af 34 L BUN/Creatinine Ratio 19.7 Glucose 139 H Lactic Acid 0.7 Calcium 8.5 Total Bilirubin 0.60 AST 15 ALT 15 Alkaline Phosphatase 105 Troponin I High Sens 321 H* B-Natriuretic Peptide 277.1 H Total Protein 7.3 Albumin 3.4 Globulin 3.9 Albumin/Globulin Ratio 0.9 Urine Color Urine Clarity Urine pH Ur Specific [place] Urine Protein Urine Glucose (UA) Urine Ketones Urine Occult Blood Urine Nitrite Urine Bilirubin Urine Urobilinogen Ur Leukocyte Esterase Urine RBC Urine WBC Ur Squamous Epith Cells Urine Bacteria Urine Mucus 04/03/24 20:45 WBC RBC Hgb Hct MCV MCH MCHC RDW Std Deviation RDW Coeff of Fariba Plt Count MPV Sodium Potassium Chloride Carbon Dioxide Anion Gap BUN Creatinine Estim Creat Clear Calc Est GFR (MDRD) Af Amer Est GFR (MDRD) Non-Af BUN/Creatinine Ratio Glucose Lactic Acid Calcium Total Bilirubin AST ALT Alkaline Phosphatase Troponin I High Sens B-Natriuretic Peptide Total Protein Albumin Globulin Albumin/Globulin Ratio Urine Color Yellow Urine Clarity Sl. Cloudy Urine pH 6.0 Ur Specific [place] 1.010 Urine Protein 100 H Urine Glucose (UA) Normal Urine Ketones Negative Urine Occult Blood 25 H Urine Nitrite Positive H Urine Bilirubin Negative Urine Urobilinogen Normal Ur Leukocyte Esterase 500 H Urine RBC 0-5 SEEN Urine WBC 10-25 SEEN Ur Squamous Epith Cells 0-5 SEEN Urine Bacteria 4+ Urine Mucus 0 SEEN Radiography Diagnostic Testing: Clinical Impression(s) from Imaging Studies Chest X-Ray 04/03/24 19:35 IMPRESSION: Mild left basilar infiltrate/atelectasis. Electronically Signed: Irvin Galarza DO at 20:13 EDT , Discharge Plan Disposition Disposition: Acute Care Hospital [facility] Discharge Date/Time: 04/03/24 23:26
--- NOTE | 2024-04-03 19:33 | EKG12_ITS ---
Test Reason : ELEV TROP Blood Pressure : / mmHG Vent. Rate : 065 BPM Atrial Rate : 000 BPM P-R Int : 000 ms QRS Dur : 088 ms QT Int : 410 ms P-R-T Axes : 000 034 -08 degrees QTc Int : 426 ms Atrial fibrillation Anteroseptal infarct , age undetermined Abnormal ECG When compared with ECG of 03-APR-2024 20:03, MANUAL COMPARISON REQUIRED, DATA IS UNCONFIRMED Confirmed by DAMIEN BALDWIN, JAMIE ([id number]), clinical editor OPAL PATTERSON ([id number]) on 04/10/2024 9:56:30 AM Referred By: Confirmed By:AUGUSTINA QUEZADA MD
[2024-04-03] MEDS: 0.9% Normal Saline (1000mL) 1,000 ML 50 ML IV (19:35)
--- NOTE | 2024-04-03 19:35 | RAD_ITS ---
INDICATION: SOB EXAMINATION/TECHNIQUE: X-RAY - XR Chest 2 Views COMPARISON: February 13, 2024 FINDINGS: LINES/DEVICES: Stable right venous ports. LUNGS: Mild left basilar infiltrate/atelectasis. Basilar interstitial prominence. No pneumothorax. MEDIASTINUM AND CARDIOVASCULAR STRUCTURES: Cardiac silhouette not enlarged. Central airways and mediastinal contour are unremarkable. BONES AND SOFT TISSUES: Degenerative vertebral changes. RAD/Chest PA and Lateral IMPRESSION: Mild left basilar infiltrate/atelectasis. Electronically Signed: Irvin Galarza DO at 20:13 EDT ,
[2024-04-03] MEDS: Acetaminophen 500 MG Tablet 1000 MG PO (19:38)
[2024-04-03] MEDS: 0.9% Normal Saline (500mL Bag) 500 ML 1000 ML IV (19:56)
[2024-04-03 20:14] LABS: Hematocrit 27.3 % (37-47); Hemoglobin 8.5 g/dL (12.0-15.0); Mean Corp Hgb Conc 31.1 g/dL (32-36); Mean Corpuscular Hgb 27.6 pg (27.0-32.0); Mean Corpuscular Volume 88.6 fL (81-99); Mean Platelet Vol. 11.2 fl (6.2-12.0); Platelet Count 228 K/mm3 (150-450); RBC Distribution Width CV 14.1 % (11.6-14.6); RBC Distribution Width SD 45.6 fl (35.1-43.9); Red Blood Count 3.08 M/mm3 (4.2-5.4); White Blood Count 11.8 K/mm3 (4.4-11.0)
[2024-04-03 20:43] LABS: Lactic Acid 0.7 mmol/L (0.4-1.9)
[2024-04-03 20:51] LABS: Mucous, Urine 0 SEEN /hpf (<or=2+)
[2024-04-03 21:02] LABS: Color, Urine Yellow (Yellow); Glucose, Dipstick Normal (Normal); Ketone-Dipstick Negative (Negative); Leukocyte Esterase-Dipstick 500 /ul (Negative); Nitrite-Dipstick Positive (Negative); Occult Blood-Urine 25 /ul (Negative); Protein-Dipstick 100 mg/dl (Negative); Urine Bilirubin Dipstick Negative (Negative); Urine Clarity Sl. Cloudy (Clear); Urine Urobilinogen Normal (Normal)
[2024-04-03 21:04] LABS: ALB/GLOB Ratio 0.9 RATIO (0.9-2.4); AST(SGOT) 15 U/L (15-37); Alanine Aminotransfer ALT/SGPT 15 U/L (13-56); Albumin, Serum 3.4 g/dL (3.2-5.0); Alkaline Phosphatase 105 U/L (45-117); Anion Gap 8 (5-15); BUN 31 mg/dL (7-18); BUN/Creat Ratio 19.7 RATIO (10-20); Calcium,Total 8.5 mg/dL (8.5-10.1); Chloride 104 mmol/L (98-107); Creatinine, Serum 1.57 mg/dL (0.55-1.02); EST Glomerular Filtration Rate 34 mL/min (>60); Est Glom Filt Rate - Afr Amer 41 mL/min (>60); Estimated Creatinine Clearance 37.85 ml/min; Globulin 3.9 g/dL (2.2-4.2); Glucose 139 mg/dL (74-106); Potassium 3.7 mmol/L (3.5-5.1); Protein, Total 7.3 g/dL (6.4-8.2); Sodium Level 135 mmol/L (136-145); Troponin-I HS 321 pg/mL (3.0-54.0)
[2024-04-03] MEDS: Azithromycin 500 MG in Dextrose 5%-Water (250mL Bag) 250 ML 250 MG IV (21:10)
[2024-04-03] MEDS: Ceftriaxone 1 GM/50 ML BAG IV (21:10)
[2024-04-03 21:12] LABS: BNP,B-Type NATRIURETIC PEPTIDE 277.1 pg/mL (0-100)
[2024-04-03 21:17] LABS: Bacteria 4+ /hpf (None Seen); Red Blood Cells-Urine 0-5 SEEN /hpf (0-5); Squamous Epithelial Cells - UA 0-5 SEEN /hpf (5-10); White Blood Cells 10-25 SEEN /hpf (0-5)
--- NOTE | 2024-04-03 22:09 | HP.PCM.HOS_ITS ---
[facility] - General General Date of Admission: 04/03/24 Date of Service: 04/03/24 Chief Complaint: Fever, SOB and fatigue. [facility] Narrative KAMI ROLLE, is a 78 F with a past medical history of essential hypertension, hyperlipidemia; with intolerance to Pravastatin (severe muscle and joint pain), morbid obesity; with BMI of 43 this admission, AARTI; on nocturnal CPAP, diabetes mellitus type 2; of unknown control managed with diet, CAD; s/p NSTEMI; s/p LHC (2017), history of nonrheumatic aortic stenosis; s/p Navarrete JONES prosthetic size #26 AVR (2019), chronic diastolic CHF; with preserved LVEF ~65%, chronic atrial fibrillation; with anticoagulation held since 2018, chronic pulmonary hypertension; on Sildenafil TID, history of VTE; s/p IVC filter (2019), history of syncope, CKD; stage IIIb, Chronic GI Bleeding with history of panendoscopy with clippings and cauterizations; s/p coil embolization of colonic artery to treat colonic AVM's (and without surgical intervention due to perceived high surgical risk), TREE (since 2016); requiring transfusions with Port in place followed by Dr. Khan, history of hysterectomy, history of appendectomy, GERD, history of venous ulcer on LLE, history of pancreatitis, history of COVID- 19, Gout, OA; with chronic back pain and recent admission here from February 17, 2024 to February 18, 2024 for treatment of acute GI bleeding with acute blood loss anemia requiring transfusion of 2 units of PRBCs with Dr. 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 Ms. Rolle reports her symptoms began approximately 6 hours prior to admission when she began to develop a fever around noon. She also noted dyspnea on exertion that progressed to shortness of breath at rest but she denies associated cough, abdominal pain, nausea, vomiting, diarrhea, constipation or dysuria. In the ER she was noted to have x- ray evidence of Left lower lobe infiltrate due to suspected community-acquired pneumonia complicated by a urinalysis positive for evidence of acute cystitis; without hematuria compounded by an elevated initial troponin of 321 pg/mL present on admission suspicious for acute cardiac strain along with an elevated BNP of 277.1 pg/mL consistent with mild acute exacerbation of chronic diastolic CHF; with preserved LVEF complicated by and she was then admitted to the PCU for ongoing care for stay that is expected to extend beyond 2 midnights. 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 Anemia of chronic renal failure, stage 3 (moderate) Nonobstructive atherosclerosis of coronary artery Longstanding persistent atrial fibrillation Acute blood loss anemia (09/24/20) Iron deficiency anemia due to chronic blood loss Chronic GI bleeding Chronic diastolic (congestive) heart failure Type 2 diabetes mellitus Essential (primary) hypertension Presence of IVC filter (09/2018) Anemia in chronic kidney disease (CKD) Acute kidney injury Bloody stool Knee pain Anemia Arthritis Hyperkalemia Non-ST elevation (NSTEMI) myocardial infarction (12/09/16) Nonrheumatic aortic (valve) stenosis Nonrheumatic mitral (valve) insufficiency Nonrheumatic tricuspid (valve) insufficiency Other secondary pulmonary hypertension Sepsis secondary to UTI Fatigue History of pneumonia Osteopenia Liver disease History of GI bleed Diverticulitis History of blood transfusion Morbid obesity Iron deficiency anemia Hyperlipidemia Home Medications ?Medication ?Instructions ?Recorded ?Last Taken ?Type sildenafil (pulm.hypertension) 20 20 mg PO TID PULMONARY HTN 11/18/17 04/03/24 13:33 History mg tablet magnesium 250 mg tablet 250 mg PO DAILY SUPPLEMENT 10/09/18 04/02/24 History ferrous sulfate 325 mg (65 mg 325 mg PO TID SUPPLEMENT 04/14/19 04/03/24 13:34 History iron) tablet (Melissa-Time) ascorbic acid (vitamin C) 500 mg 500 mg PO DAILY SUPPLEMENT 05/10/20 04/03/24 History capsule cyanocobalamin (vitamin B-12) 2,500 mcg sublingual .3XWEEK 05/10/20 04/03/24 History 2,500 mcg sublingual lozenge SUPPLEMENT pantoprazole 40 mg tablet,delayed 40 mg PO DAILY ACID REFLUX 03/06/21 04/03/24 History release furosemide 40 mg tablet 40 mg PO DAILY CHF #30 tabs 07/30/23 04/03/24 Rx cholecalciferol (vitamin D3) 50 50 mcg PO DAILY supplement 08/08/23 04/03/24 History mcg (2,000 unit) capsule amlodipine 10 mg tablet 10 mg PO DAILY BLOOD PRESSURE #90 12/11/23 04/03/24 Rx tabs Allergy/AdvReac Type Severity Reaction Status Date / Time pravastatin AdvReac Severe severe Verified 04/03/24 19:07 muscle and joint pain Family History Mother , age 83 Uterine cancer Hypertension Father , age 81 Heart disease Diabetes CAD (coronary artery disease) Hypertension Surgical History History of esophagogastroduodenoscopy (EGD) History of colonoscopy History of hysterectomy History of root canal procedure H/O aortic valve replacement (09/15/18) coil embolization of colonic artery History of left heart catheterization (LHC) (04/10/17) Status post right foot surgery History of hysterectomy History of appendectomy Social History household members: spouse housing: house Smoking Status: Never smoker alcohol intake: never substance use type: does not use caffeine: No what type of physical activity do you participate in: none divina/bahai: Mennonite seatbelt use: always do you feel safe at home: Yes ROS ROS Narrative Review of systems: General: Patient admits to fever but denies chills. HENT: Denies headache, denies stuffy nose, denies sore throat EYES: Denies changes in vision or discharge from eyes. Resp: Denies cough, denies shortness of breath Cardiac: Denies chest pain, palpitations or heart racing. GI: Denies abdominal pain, denies changes in bowel, denies nausea or vomiting. : Denies changes in urination Extremity: Denies swelling Musculoskeletal: Feels somewhat generally weak and unwell but she denies arthralgias or myalgias. Neuro: Patient denies headaches, paresthesias or focal neurologic deficits. Heme: Denies any bleeding or bruising Skin: Denies rashes Psychiatric: No complaints voiced related uncontrolled depression or anxiety Endocrine: No polyuria, polydipsia or polyuria. The rest of the 14 point ROS was negative except for positives in HPI. Vital Signs Vital Signs Vital Signs: 04/03/24 19:07 04/03/24 19:15 04/03/24 19:15 Temperature 99.9 F H Temperature Source Temporal Pulse Rate 100 Respiratory Rate 22 H 20 H Respiratory Effort Respiratory Pattern Blood Pressure 191/61 H Blood Pressure Mean 104 Pulse Ox 93 91 Oxygen Delivery Method Room Air Room Air Room Air Fraction of Inspired Oxygen (FIO2) 04/03/24 19:20 04/03/24 19:27 04/03/24 19:29 Temperature 100.1 F H Temperature Source Oral Pulse Rate 90 Respiratory Rate 25 H Respiratory Effort Short of Breath Respiratory Pattern Tachypnea Blood Pressure 198/81 H Blood Pressure Mean 120 Pulse Ox 89 93 Oxygen Delivery Method Room Air Nasal Cannula Fraction of Inspired Oxygen (FIO2) 3 04/03/24 20:43 Temperature 99.9 F H Temperature Source Oral Pulse Rate Respiratory Rate Respiratory Effort Respiratory Pattern Blood Pressure Blood Pressure Mean Pulse Ox Oxygen Delivery Method Fraction of Inspired Oxygen (FIO2) Weight Weight: 266 lb 5.094 oz Body Mass Index (BMI) 43.0 Physical Exam Const alert, oriented x3, no apparent distress and average body habitus General Appearance: cooperative HEENT normocephalic, head/scalp atraumatic, hearing grossly normal bilaterally and moist oral mucous membranes Eyes PERRL and EOMs intact bilaterally Neck no lymphadenopathy and supple Resp normal respiratory effort, no retractions and no use of accessory muscles Resp Narrative: Diminished breath sounds over the LLL. Cardio regular rate and regular rhythm GI normal to inspection, nondistended, normoactive bowel sounds, soft to palpation, non-tender and non-distended Extremity normal to inspection and full ROM Skin Skin Narrative: Patient has no evidence of rash, abscess or jaundice. Neuro oriented x3, CN's II-XII intact bilaterally, moves all extremities and no focal motor deficits Sensorium / Orientation: awake, alert, oriented to person, oriented to place and oriented to time Speech: speech normal Psych affect normal Results Medical Records Data Attestation: I reviewed the patient's medical records Lab / Micro Data Attestation: I reviewed the patient's lab results. 04/04/24 03:00 04/04/24 03:00 Labs: Laboratory Results - last 24 hr 04/03/24 19:33: Sodium 135 L, Potassium 3.7, Chloride 104, Carbon Dioxide 23.0, Anion Gap 8, BUN 31 H, Creatinine 1.57 H, Estim Creat Clear Calc 37.85, Est GFR (MDRD) Af Amer 41 L, Est GFR (MDRD) Non-Af 34 L, BUN/Creatinine Ratio 19.7, G lucose 139 H, Calcium 8.5, Total Bilirubin 0.60, AST 15, ALT 15, Alkaline Phosphatase 105, Troponin I High Sens 321 H*, Total Protein 7.3, Albumin 3.4, Globulin 3.9, Albumin/Globulin Ratio 0.9 04/03/24 19:40: B-Natriuretic Peptide 277.1 H 04/03/24 19:41: WBC 11.8 H, RBC 3.08 L, Hgb 8.5 L, Hct 27.3 L, MCV 88.6, MCH 27.6, MCHC 31.1 L, RDW Std Deviation 45.6 H, RDW Coeff of Fariba 14.1, Plt Count 228, MPV 11.2, Lactic Acid 0.7 04/03/24 20:45: Urine Color Yellow, Urine Clarity Sl. Cloudy, Urine pH 6.0, Ur Specific [place] 1.010, Urine Protein 100 H, Urine Glucose (UA) Normal, Urine Ketones Negative, Urine Occult Blood 25 H, Urine Nitrite Positive H, Urine Bilirubin Negative, Urine Urobilinogen Normal, Ur Leukocyte Esterase 500 H, Urine RBC 0-5 SEEN, Urine WBC 10-25 SEEN, Ur Squamous Epith Cells 0-5 SEEN, Urine Bacteria 4+, Urine Mucus 0 SEEN Micro: Microbiology 04/03/24 20:10 Mucosa - Nasopharyngeal SARS-CoV-2, Influenza & RSV (PCR) - Final Imaging Radiology Impression Chest X-Ray 04/03/24 19:35 IMPRESSION: Mild left basilar infiltrate/atelectasis. Electronically Signed: Irvin Galarza DO at 20:13 EDT Reading Location ID and State: [facility] / [place] Tel [phone], Service support , Assessment & Plan Assessment/Plan (1) Pneumonia: QUALIFIERS: Pneumonia type: due to unspecified organism L aterality: left Lung location: lower lobe of lung Qualified Code(s): J18.9 - Pneumonia, unspecified organism (2) CHF exacerbation: QUALIFIERS: Heart failure type: diastolic Qualified Code(s): I 50.33 - Acute on chronic diastolic (congestive) heart failure (3) Chronic diastolic (congestive) heart failure: (4) Acute cystitis without hematuria: (5) Elevated troponin: (6) Chronic GI bleeding: (7) Morbid obesity with BMI of 40.0-44.9, adult: PLAN: Plan 1. Left lower lobe infiltrate due to suspected community-acquired pneumonia - Admit to PCU. Continue broad-spectrum antibiotics with IV Rocephin plus IV azithromycin and await culture sensitivity data. Give Tylenol as needed programs pain or fever. 2. Elevated BNP of 277.1 pg/mL consistent with mild acute exacerbation of chronic diastolic CHF; with preserved LVEF complicating #1 - Continue Lasix and monitor for improvement. Recheck BNP in a.m. to follow trend. 3. Acute cystitis; without hematuria compounding #1 & #2 - Continue current antibiotics and await culture and sensitivity data. 4. Elevated initial troponin of 321 pg/mL present on admission likely due to acute cardiac strain arising from #1 - #3 - Avoid ECASA and Heparin to avoid triggering another GI bleed. Treat supportively and monitor for improvement. 5. Recent admission here from February 17, 2024 to February 18, 2024 for treatment of acute GI bleeding with acute blood loss anemia requiring transfusion of 2 units of PRBCs with Dr. 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 Khan of the hematology service adding to the complexity of #1 - #4 - noted. 6. Morbid obesity; with BMI of 43 this admission plus AARTI; on nocturnal CPAP adding to the pathology of #1 - #5 - Weight loss will be recommended. Check TSH. 7. History of nonrheumatic aortic stenosis; s/p Anvarrete JONES prosthetic size #26 AVR (2019) - Noted. 8. CAD; s/p NSTEMI; s/p LHC (2017) - Stable. 9. Chronic atrial fibrillation; with anticoagulation held since 2018 due to recurrent GI bleeds - Noted. 10. Chronic pulmonary hypertension; on Sildenafil TID - Continue this agent as previous. 11. Essential hypertension - Resume current regimen plus give prn Hydralazine IV prn for systolic blood pressure > 160 mmHg. 12. Hyperlipidemia; with intolerance to Pravastatin (severe muscle and joint pain) - Noted. We will continue to avoid this class of agents. 13. Diabetes mellitus type 2; of unknown control managed with diet - ADA diet. FSBS q. AC/HS plus SSI. Check HgA1c to objectively evaluate quality of diabetic control. 14. History of VTE; s/p IVC filter (2019) - Noted. 15. History of syncope - Noted. 16. CKD; stage IIIb - Stable. 17. History of hysterectomy - Noted. 18. History of appendectomy - Noted. 19. GERD - Resume PPI as previous. 20. History of venous ulcer on LLE - Noted. 21. History of pancreatitis - Noted. 22. History of COVID-19 - Noted. 23. Gout - Stable with no evidence of acute flare. 24. OA; with chronic back pain - Give Tylenol prn. 25. DVT prophylaxis - SCD's only with history of severe and recurrent GI bleeding. Total time: Approximately 75 minutes. Charges/Coding Visit Charges Inpatient E&M: 20917 Init Hosp L3 Multi Select Codes Visit Charges Visit Charges: 04743 Init Hosp L3
--- NOTE | 2024-04-03 23:37 | EKG12_ITS ---
Test Reason : DYSRHYTHMIA Blood Pressure : / mmHG Vent. Rate : 093 BPM Atrial Rate : 000 BPM P-R Int : 000 ms QRS Dur : 096 ms QT Int : 330 ms P-R-T Axes : 000 030 -12 degrees QTc Int : 410 ms Atrial fibrillation Septal infarct , age undetermined Abnormal ECG Confirmed by Nelson Maloney ([id number]), news editor RENATA CORTES ([id number]) on 04/06/2024 9:55:07 AM Referred By: Confirmed By:Nelson Maloney
[2024-04-04] VITALS (10 sets, daily range): BP systolic 130–182; BP diastolic 56–67; PULSE 71–81; RESP 16–22; TEMP 36.4–36.9; O2SAT 94–100; BMI 42.7
[2024-04-04 00:45] LABS: Troponin-I HS 414 pg/mL (3.0-54.0)
[2024-04-04] MEDS: SILDENAFIL CITRATE 20 MG TABLET PO (00:55)
[2024-04-04 03:13] LABS: Absolute Lymphocyte Count 0.85 X10^3/uL (0.83-4.51); Absolute Neutrophil Count 8.5 X10^3/uL (2.0-7.7); Basophil# 0.02 X10^3/uL; Basophil% 0.2 % (0-1); Eosinophil# 0.01 X10^3/uL; Eosinophils% 0.1 % (0-5); Hematocrit 26.5 % (37-47); Hemoglobin 8.3 g/dL (12.0-15.0); Lymphocyte # 0.85 X10^3/ul (0.83-4.51); Lymphocyte % 8.6 % (19-41); Mean Corp Hgb Conc 31.3 g/dL (32-36); Mean Corpuscular Hgb 27.7 pg (27.0-32.0); Mean Corpuscular Volume 88.3 fL (81-99); Mean Platelet Vol. 10.5 fl (6.2-12.0); Monocyte# 0.48 X10^3/uL; Monocyte% 4.8 % (0-10); NRBC Flagged by Analyzer 0 % (0-5); Neutrophil # 8.48 X10^3/uL (2.7-7.7); Neutrophil % 85.7 % (47-70); Platelet Count 200 K/mm3 (150-450); RBC Distribution Width CV 14.1 % (11.6-14.6); RBC Distribution Width SD 45.5 fl (35.1-43.9); White Blood Count 9.9 K/mm3 (4.4-11.0)
[2024-04-04 03:37] LABS: Troponin-I HS 336 pg/mL (3.0-54.0)
[2024-04-04 03:39] LABS: ALB/GLOB Ratio 0.8 RATIO (0.9-2.4); AST(SGOT) 15 U/L (15-37); Alanine Aminotransfer ALT/SGPT 12 U/L (13-56); Albumin, Serum 3.2 g/dL (3.2-5.0); Alkaline Phosphatase 94 U/L (45-117); Anion Gap 9 (5-15); BUN 28 mg/dL (7-18); BUN/Creat Ratio 18.8 RATIO (10-20); Calcium,Total 8.7 mg/dL (8.5-10.1); Chloride 106 mmol/L (98-107); Creatinine, Serum 1.49 mg/dL (0.55-1.02); EST Glomerular Filtration Rate 36 mL/min (>60); Est Glom Filt Rate - Afr Amer 43 mL/min (>60); Estimated Creatinine Clearance 39.79 ml/min; Globulin 3.8 g/dL (2.2-4.2); Glucose 115 mg/dL (74-106); Magnesium 2.5 mg/dL (1.6-2.6); Phosphorus 3.2 mg/dL (2.5-4.9); Potassium 3.5 mmol/L (3.5-5.1); Sodium Level 138 mmol/L (136-145)
[2024-04-04] MEDS: SILDENAFIL CITRATE 20 MG TABLET 40 MG PO ×3 (06:56→22:29)
[2024-04-04 07:10] LABS: BNP,B-Type NATRIURETIC PEPTIDE 400.5 pg/mL (0-100)
[2024-04-04 07:25] LABS: Bedside Glucose 98 mg/dL (74-106)
--- NOTE | 2024-04-04 07:55 | PN.HOSP_ITS ---
Reason for Visit Reason for Visit: Diagnoses Morbid (severe) obesity due to excess calories (04/03/24) Chronic diastolic (congestive) heart failure (04/03/24) Acute on chronic diastolic (congestive) heart failure (04/03/24) Pneumonia, unspecified organism (04/03/24) Gastrointestinal hemorrhage, unspecified (04/03/24) Acute cystitis without hematuria (04/03/24) Other specified abnormal findings of blood chemistry (04/03/24) Body mass index [BMI] 40.0-44.9, adult (04/03/24) Subjective Subjective Breathing ok. Does state that her legs are more swollen since last admission. Objective Data Objective Data Vital Signs: Vital Signs Temp Pulse Resp BP Pulse Ox O2 Del Method O2 Flow Rate 36.6 C 71 18 182/66 H 100 Ambu-Bag 4 04/04/24 04:00 04/04/24 04:00 04/04/24 04:00 04/04/24 04:00 04/04/24 04:00 04/04/24 04:00 04/04/24 04:00 FiO2 3 04/03/24 19:29 Oxygen Flow Rate (L/min) 4 Oxygen Delivery Method Ambu-Bag Weight: 120.3 kg Body Mass Index (BMI) 42.7 Intake & Output: Intake and Output for Last 24 Hours 04/02/24 04/03/24 04/04/24 23:59 23:59 23:59 Intake Total 560 / 560 120 / 120 Output Total 0 / 0 Balance 560 / 560 120 / 120 Lab / Micro Data 04/04/24 03:00 04/04/24 03:00 Labs: Laboratory Results - last 24 hr 04/03/24 19:33: Sodium 135 L, Potassium 3.7, Chloride 104, Carbon Dioxide 23.0, Anion Gap 8, BUN 31 H, Creatinine 1.57 H, Estim Creat Clear Calc 37.85, Est GFR (MDRD) Af Amer 41 L, Est GFR (MDRD) Non-Af 34 L, BUN/Creatinine Ratio 19.7, G lucose 139 H, Calcium 8.5, Total Bilirubin 0.60, AST 15, ALT 15, Alkaline Phosphatase 105, Troponin I High Sens 321 H*, Total Protein 7.3, Albumin 3.4, Globulin 3.9, Albumin/Globulin Ratio 0.9 04/03/24 19:40: B-Natriuretic Peptide 277.1 H 04/03/24 19:41: WBC 11.8 H, RBC 3.08 L, Hgb 8.5 L, Hct 27.3 L, MCV 88.6, MCH 27.6, MCHC 31.1 L, RDW Std Deviation 45.6 H, RDW Coeff of Fariba 14.1, Plt Count 228, MPV 11.2, Lactic Acid 0.7 04/03/24 20:45: Urine Color Yellow, Urine Clarity Sl. Cloudy, Urine pH 6.0, Ur Specific [place] 1.010, Urine Protein 100 H, Urine Glucose (UA) Normal, Urine Ketones Negative, Urine Occult Blood 25 H, Urine Nitrite Positive H, Urine Bilirubin Negative, Urine Urobilinogen Normal, Ur Leukocyte Esterase 500 H, Urine RBC 0-5 SEEN, Urine WBC 10-25 SEEN, Ur Squamous Epith Cells 0-5 SEEN, Urine Bacteria 4+, Urine Mucus 0 SEEN 04/03/24 23:45: Troponin I High Sens 414 H* 04/04/24 03:00: WBC 9.9, RBC 3.00 L, Hgb 8.3 L, Hct 26.5 L, MCV 88.3, MCH 27.7, MCHC 31.3 L, RDW Std Deviation 45.5 H, RDW Coeff of Fariba 14.1, Plt Count 200, MPV 10.5, Immature Gran % (Auto) 0.600, Neut % (Auto) 85.7 H, Lymph % (Auto) 8.6 L, [place] % (Auto) 4.8, Eos % (Auto) 0.1, Baso % (Auto) 0.2, Absolute Neuts (auto) 8.5 H, Absolute Lymphs (auto) 0.85, Nucleated RBC % 0, Sodium 138, Potassium 3.5, Chloride 106, Carbon Dioxide 23.0, Anion Gap 9, BUN 28 H, Creatinine 1.49 H , Estim Creat Clear Calc 39.79, Est GFR (MDRD) Af Amer 43 L, Est GFR (MDRD) Non- Af 36 L, BUN/Creatinine Ratio 18.8, Glucose 115 H, Calcium 8.7, Phosphorus 3.2, Magnesium 2.5, Total Bilirubin 0.50, AST 15, ALT 12 L, Alkaline Phosphatase 94, Troponin I High Sens 336 H*, Total Protein 7.0, Albumin 3.2, Globulin 3.8, A lbumin/Globulin Ratio 0.8 L, TSH 2.580 04/04/24 06:30: B-Natriuretic Peptide 400.5 H 04/04/24 06:54: POC Glucose 98 Micro: Microbiology 04/03/24 20:45 Urine, Clean Catch Legionella Antigen - Final 04/03/24 20:45 Urine, Clean Catch Streptococcus pneumoniae Antigen (M - Final 04/03/24 20:10 Mucosa - Nasopharyngeal SARS-CoV-2, Influenza & RSV (PCR) - Final Radiography Diagnostic Testing: Radiology Impression Chest X-Ray 04/03/24 19:35 IMPRESSION: Mild left basilar infiltrate/atelectasis. Electronically Signed: Irvin Galarza DO at 20:13 EDT Reading Location ID and State: [facility] / [place] Tel [phone], Service support , Physical Exam Const alert and no apparent distress HEENT head/scalp atraumatic and moist oral mucous membranes Resp normal respiratory effort and no retractions Resp Narrative: bibasilar crackles. Cardio regular rate and regular rhythm Extremity General Extremity: edema bilateral lower extremity Details: moderate (with venous stasis discoloration bilaterally. ) Neuro Sensorium / Orientation: awake and alert Psych affect normal Assessment & Plan Assessment/Plan (1) Pneumonia: QUALIFIERS: Laterality: left Lung location: lower lobe of lung P neumonia type: due to unspecified organism Qualified Code(s): J18.9 - Pneumonia, unspecified organism (2) CHF exacerbation: QUALIFIERS: Heart failure type: diastolic Qualified Code(s): I 50.33 - Acute on chronic diastolic (congestive) heart failure (3) Chronic diastolic (congestive) heart failure: (4) Acute cystitis without hematuria: (5) Elevated troponin: (6) Chronic GI bleeding: (7) Morbid obesity with BMI of 40.0-44.9, adult: PLAN: Plan Pneumonia * Suspected v CHF * Strep and legionella antigen negative, COVID/influenza/RSV, negative. BCx pending. * Abx with CTX and azithromycin * PEP Cystitis * Abnormal UA * Follow up UCx. Elevated troponin * Chronically elevated troponins. Troponins elevated 180s in January. * H/o GI Bleed which precludes anticoagulation. * Echo from 02/13 showed an EF 65%. HFpEF, acute * wt up 6.5kg since February. Echo 02/13 showed an EF 65%. * change furosemide PO to IV BID. Chronic conditions: * Obesity class III: complicates care and recovery. * history of nonrheumatic aortic stenosis; s/p Navarrete JONES prosthetic size #26 AVR (2019) * Chronic atrial fibrillation; with anticoagulation held since 2018 due to recurrent GI bleeds * Chronic pulmonary hypertension; on Sildenafil TID * Essential hypertension - Resume current regimen plus give prn Hydralazine IV prn for systolic blood pressure > 160 mmHg. * Hyperlipidemia; with intolerance to Pravastatin (severe muscle and joint pain) - Noted. We will continue to avoid this class of agents. * Diabetes mellitus type 2; of unknown control managed with diet - ADA diet. FSBS q. AC/HS plus SSI. Check HgA1c to objectively evaluate quality of diabetic control. * History of VTE; s/p IVC filter (2019) * CKD; stage IIIb - Stable. * GERD - PPI * History of venous ulcer on LLE DVT prophylaxis - SCD's Charges/Coding Visit Charges Inpatient E&M: 07127 Subs Hosp L2
--- NOTE | 2024-04-04 09:15 | CASEMGMT ---
LELE BEGUM Assessment: Face to Face with pt for initial transition planning/care coordination assessment. LELE BEGUM introduced self and role at [facility], pt voices understanding and consents to assessment. Pt is A&O x4 and answers all questions appropriately at this time. Care providers, pharmacy, and demographics verified/updated. Strata: 3 Admitting Dx: LLL PNA, AE CHF, Acute cystitis PCP: Max Specialists: Erin, Oncologist; Breanne, Auctioneer Tobacco; Friend, Gastrologist. Preferred Pharmacy: [facility] Insurance: [facility], [employer] [place] Prescription Benefit: yes LNOK: , Daughter Living Arrangements: Pt lives with in a ranch home with 2 steps and rails to enter. ADLs: Pt reports I with ADLs and needs some assistance with laundry and cleaning. assists her at home. Transportation: Pt drives self and denies concerns with transportation. able to drive pt when needed. DME: Wheelchair, walker, shower chair, bedside commode, grab bars, Glucometer and supplies, CPAC with Oxygen at night. Pt uses [facility] for oxygen needs. If pt requires additional O2 at DC would like to use [facility], denies a list of other DME providers. HHC/SNF: [facility] Pt agreeable to HHC services if recommended, [facility]. Denies list of local HHC agencies. Pt states no concerns with going home at time of dc. Pt states no further concerns/needs. CM to follow. Advised pt to ask CM if any further question/concerns/needs arise, voices understanding. Pt Goal: Home Plan: Home, follow therapy for recommendations. Follow for O2 needs. Franklin ROYAL CM
[2024-04-04] MEDS: Ferrous Sulfate 325 MG Tablet PO ×3 (09:56→17:42)
[2024-04-04] MEDS: Magnesium Chloride 64 MG Delay Rel.Tablet PO (09:57)
[2024-04-04] MEDS: Pantoprazole Sodium 40 MG Tablet PO (09:57)
[2024-04-04] MEDS: Cholecalciferol (VIT D3) 25 MCG TABLET (1,000 UNITS) 50 MCG PO (09:57)
[2024-04-04] MEDS: Furosemide 40 MG/4 ML Vial IV ×2 (09:57→17:42)
[2024-04-04] MEDS: Lactobacillis Acidophilus 1 CAP PO ×4 (09:57→22:28)
[2024-04-04] MEDS: Ascorbic Acid 500 MG Tablet PO (09:57)
[2024-04-04] MEDS: amLODIPine 10 MG Tablet PO (09:57)
[2024-04-04] MEDS: 0.9% Saline Lock 10 ML Syringe IV (10:05)
[2024-04-04 12:21] LABS: Bedside Glucose 132 mg/dL (74-106)
[2024-04-04 16:54] LABS: Bedside Glucose 107 mg/dL (74-106)
--- NOTE | 2024-04-04 18:47 | NURSING ---
Reviewed charting with Amie Trevizo RN
[2024-04-04] MEDS: Ceftriaxone 1 GM/50 ML BAG IV (21:16)
[2024-04-04] MEDS: Azithromycin 500 MG in Dextrose 5%-Water (250mL Bag) 250 ML 250 MG IV (22:19)
[2024-04-05] VITALS (8 sets, daily range): BP systolic 130–165; BP diastolic 41–70; PULSE 54–73; RESP 16–18; TEMP 36.7–37.2; O2SAT 93–97; BMI 42.3
[2024-04-05 00:48] LABS: Bedside Glucose 108 mg/dL (74-106)
[2024-04-05 05:17] LABS: Absolute Lymphocyte Count 0.74 X10^3/uL (0.83-4.51); Absolute Neutrophil Count 6.8 X10^3/uL (2.0-7.7); Basophil# 0.03 X10^3/uL; Basophil% 0.4 % (0-1); Eosinophil# 0.09 X10^3/uL; Eosinophils% 1.1 % (0-5); Hematocrit 25.5 % (37-47); Hemoglobin 7.8 g/dL (12.0-15.0); Lymphocyte # 0.74 X10^3/ul (0.83-4.51); Mean Corp Hgb Conc 30.6 g/dL (32-36); Mean Corpuscular Hgb 27.6 pg (27.0-32.0); Mean Corpuscular Volume 90.1 fL (81-99); Mean Platelet Vol. 11.2 fl (6.2-12.0); Monocyte# 0.55 X10^3/uL; Monocyte% 6.7 % (0-10); NRBC Flagged by Analyzer 0 % (0-5); Neutrophil # 6.77 X10^3/uL (2.7-7.7); Neutrophil % 82.1 % (47-70); Platelet Count 224 K/mm3 (150-450); RBC Distribution Width CV 14.3 % (11.6-14.6); RBC Distribution Width SD 46.9 fl (35.1-43.9); Red Blood Count 2.83 M/mm3 (4.2-5.4); White Blood Count 8.2 K/mm3 (4.4-11.0)
[2024-04-05 05:41] LABS: Anion Gap 8 (5-15); BUN 25 mg/dL (7-18); BUN/Creat Ratio 18.4 RATIO (10-20); Calcium,Total 8.7 mg/dL (8.5-10.1); Chloride 105 mmol/L (98-107); Creatinine, Serum 1.36 mg/dL (0.55-1.02); EST Glomerular Filtration Rate 40 mL/min (>60); Est Glom Filt Rate - Afr Amer 48 mL/min (>60); Estimated Creatinine Clearance 43.59 ml/min; Glucose 101 mg/dL (74-106); Potassium 3.5 mmol/L (3.5-5.1); Sodium Level 138 mmol/L (136-145)
[2024-04-05] MEDS: 0.9% Saline Lock 10 ML Syringe IV ×2 (06:21→11:00)
[2024-04-05] MEDS: SILDENAFIL CITRATE 20 MG TABLET 40 MG PO ×3 (06:21→21:45)
[2024-04-05 06:46] LABS: Bedside Glucose 99 mg/dL (74-106)
--- NOTE | 2024-04-05 08:34 | PN.HOSP_ITS ---
Reason for Visit Reason for Visit: Diagnoses Morbid (severe) obesity due to excess calories (04/03/24) Chronic diastolic (congestive) heart failure (04/03/24) Acute on chronic diastolic (congestive) heart failure (04/03/24) Pneumonia, unspecified organism (04/03/24) Gastrointestinal hemorrhage, unspecified (04/03/24) Acute cystitis without hematuria (04/03/24) Other specified abnormal findings of blood chemistry (04/03/24) Body mass index [BMI] 40.0-44.9, adult (04/03/24) Subjective Subjective Feels well. No shortness of breath and has been taken off of oxygen. Objective Data Objective Data Vital Signs: Vital Signs Temp Pulse Resp BP Pulse Ox O2 Del Method O2 Flow Rate 36.9 C 72 18 130/64 H 96 CPAP 4 04/05/24 02:00 04/05/24 02:00 04/05/24 02:00 04/05/24 02:00 04/05/24 02:00 04/05/24 03:00 04/05/24 03:00 FiO2 3 04/03/24 19:29 Oxygen Flow Rate (L/min) 4 Oxygen Delivery Method CPAP Weight: 118.841 kg Body Mass Index (BMI) 42.3 Intake & Output: Intake and Output for Last 24 Hours 04/03/24 04/04/24 04/05/24 23:59 23:59 23:59 Intake Total 560 / 560 1425 / 1665 300 / 300 Output Total 0 / 0 Balance 560 / 560 1425 / 1665 300 / 300 Lab / Micro Data 04/05/24 04:39 04/05/24 04:39 Labs: Laboratory Results - last 24 hr 04/04/24 12:01: POC Glucose 132 H 04/04/24 16:35: POC Glucose 107 H 04/04/24 22:26: POC Glucose 108 H 04/05/24 04:39: WBC 8.2, RBC 2.83 L, Hgb 7.8 L, Hct 25.5 L, MCV 90.1, MCH 27.6, MCHC 30.6 L, RDW Std Deviation 46.9 H, RDW Coeff of Fariba 14.3, Plt Count 224, MPV 11.2, Immature Gran % (Auto) 0.700, Neut % (Auto) 82.1 H, Lymph % (Auto) 9.0 L, [place] % (Auto) 6.7, Eos % (Auto) 1.1, Baso % (Auto) 0.4, Absolute Neuts (auto) 6.8, Absolute Lymphs (auto) 0.74 L, Nucleated RBC % 0, Sodium 138, Potassium 3.5, Chloride 105, Carbon Dioxide 25.0, Anion Gap 8, BUN 25 H, Creatinine 1.36 H , Estim Creat Clear Calc 43.59, Est GFR (MDRD) Af Amer 48 L, Est GFR (MDRD) Non- Af 40 L, BUN/Creatinine Ratio 18.4, Glucose 101, Calcium 8.7 04/05/24 06:19: POC Glucose 99 Micro: Microbiology 04/03/24 20:45 Urine, Clean Catch Urine Culture - Final Klebsiella pneumoniae sp pneum 04/03/24 20:45 Urine, Clean Catch Legionella Antigen - Final 04/03/24 20:45 Urine, Clean Catch Streptococcus pneumoniae Antigen (M - Final 04/03/24 20:10 Mucosa - Nasopharyngeal SARS-CoV-2, Influenza & RSV (PCR) - Final Physical Exam Const Constitutional Narrative: Up in chair eating. On room air. No respiratory distress. No conversational dyspnea. Resp normal respiratory effort and no retractions Resp Narrative: Bibasilar crackles Cardio regular rate, regular rhythm, S1 normal heart sound and S2 normal heart sound GI normal to inspection, nondistended, normoactive bowel sounds, soft to palpation, non-tender and non-distended Extremity normal to inspection and full ROM Neuro Sensorium / Orientation: awake and alert Assessment & Plan Assessment/Plan (1) Pneumonia: QUALIFIERS: Laterality: left Lung location: lower lobe of lung P neumonia type: due to unspecified organism Qualified Code(s): J18.9 - Pneumonia, unspecified organism (2) CHF exacerbation: QUALIFIERS: Heart failure type: diastolic Qualified Code(s): I 50.33 - Acute on chronic diastolic (congestive) heart failure (3) Chronic diastolic (congestive) heart failure: (4) Acute cystitis without hematuria: (5) Elevated troponin: (6) Chronic GI bleeding: (7) Morbid obesity with BMI of 40.0-44.9, adult: PLAN: Plan Pneumonia * Suspected v CHF * Strep and legionella antigen negative, COVID/influenza/RSV, negative. BCx pending. * Abx with CTX and azithromycin * PEP UTI * UCx with >100k Klebsiella pneumoniae * Continue CTX for now. Bacteremia * Called microbiology and they told me that there is a small amount Staph species growing in anerobic bottle, not aerobic (at this time). * Unclear if contaminant, but will recheck BCx. Add vancomycin until this can be further identified. Elevated troponin * Chronically elevated troponins. Troponins elevated 180s in January. * H/o GI Bleed which precludes anticoagulation. * Echo from 02/13 showed an EF 65%. * Likely due to demand from pneumonia/UTI/CHF HFpEF, acute * wt up 6.5kg since February. Echo 02/13 showed an EF 65%. * Continue furosemide 40 IV BID. Fluid restrict. Daily wts. * Patient takes furosemide 40 mg daily at home. With her recent weight gain, would recommend increasing that to twice daily upon discharge. Chronic conditions: * Obesity class III: complicates care and recovery. * history of nonrheumatic aortic stenosis; s/p Navarrete JONES prosthetic size #26 AVR (2018) * Chronic atrial fibrillation; with anticoagulation held since 2018 due to recurrent GI bleeds * Chronic pulmonary hypertension; on Sildenafil TID * Essential hypertension - Resume current regimen plus give prn Hydralazine IV prn for systolic blood pressure > 160 mmHg. * Hyperlipidemia; with intolerance to Pravastatin (severe muscle and joint pain) - Noted. We will continue to avoid this class of agents. * Diabetes mellitus type 2; of unknown control managed with diet - ADA diet. FSBS q. AC/HS plus SSI. Check HgA1c to objectively evaluate quality of diabetic control. * History of VTE; s/p IVC filter (2019) * CKD; stage IIIb - Stable. * GERD - PPI * History of venous ulcer on LLE DVT prophylaxis - SCD's Discussed with patient's at bedside. Disposition: To be determined. If patient's blood culture turns out to be a true infection then patient had a repeat blood culture performed today that will need to be followed up. However if it is deemed to be a contaminant (such as Staph epidermidis) that she may be able to be discharged on the . Charges/Coding Visit Charges Inpatient E&M: 66302 Subs Hosp L2
[2024-04-05] MEDS: amLODIPine 10 MG Tablet PO (10:39)
[2024-04-05] MEDS: Pantoprazole Sodium 40 MG Tablet PO (10:40)
[2024-04-05] MEDS: Furosemide 40 MG/4 ML Vial IV ×2 (10:40→18:58)
[2024-04-05] MEDS: Cholecalciferol (VIT D3) 25 MCG TABLET (1,000 UNITS) 50 MCG PO (10:40)
[2024-04-05] MEDS: Magnesium Chloride 64 MG Delay Rel.Tablet PO (10:40)
[2024-04-05] MEDS: Ferrous Sulfate 325 MG Tablet PO ×3 (10:40→18:59)
[2024-04-05] MEDS: Ascorbic Acid 500 MG Tablet PO (10:40)
[2024-04-05] MEDS: Lactobacillis Acidophilus 1 CAP PO ×4 (10:40→21:45)
[2024-04-05] MEDS: Vancomycin HCl 2,000 MG in 0.9% Normal Saline (500mL Bag) 500 ML 250 MG IV (11:00)
[2024-04-05 11:24] LABS: Bedside Glucose 129 mg/dL (74-106)
--- NOTE | 2024-04-05 11:30 | PCM.RX.CS ---
Consult Antibiotic Management Pharmacy has been consulted to manage selected antibiotic: Vancomycin Type of Intervention Type of Consult: New start Suspected Infection Suspected Infection: Bacteremia Prior Doses of Antibiotics Prior Doses of Antibiotics Received/Current Regimen: Vancomycin 2000 mg IV x 1 @ 1100 Labs Labs: Sodium 138 mmol/L (136-145) 04/05/24 04:39 Potassium 3.5 mmol/L (3.5-5.1) 04/05/24 04:39 Chloride 105 mmol/L (98-107) 04/05/24 04:39 Carbon Dioxide 25.0 mmol/L (21.0-32.0) 04/05/24 04:39 Anion Gap 8 (5-15) 04/05/24 04:39 BUN 25 mg/dL (7-18) H 04/05/24 04:39 Creatinine 1.36 mg/dL (0.55-1.02) H 04/05/24 04:39 Est GFR (MDRD) Af Amer 48 mL/min (>60) L 04/05/24 04:39 Est GFR (MDRD) Non-Af 40 mL/min (>60) L 04/05/24 04:39 BUN/Creatinine Ratio 18.4 RATIO (10-20) 04/05/24 04:39 Glucose 101 mg/dL (74-106) 04/05/24 04:39 Microbiology Microbiology: Microbiology 04/03/24 19:41 Blood Culture (Wb) - Port Blood Culture - Preliminary 04/03/24 20:45 Urine, Clean Catch Urine Culture - Final Klebsiella pneumoniae sp pneum 04/03/24 20:45 Urine, Clean Catch Legionella Antigen - Final 04/03/24 20:45 Urine, Clean Catch Streptococcus pneumoniae Antigen (M - Final 04/03/24 20:10 Mucosa - Nasopharyngeal SARS-CoV-2, Influenza & RSV (PCR) - Final Dosing Weight Weight used for dosin kg Estimated Creatinine Clearance Estimated Creatinine Clearance: ~44 Goal Trough Goal Trough: 15-20 mcg/mL Pharmacy Plan for Drug Dosing Pharmacy Plan for Drug Dosing: Vancomycin 2000 mg IV x 1 loading dose followed by 1000 mg Q12H Pharmacy Service will continue to monitor and adjust dosing as required. Follow-Up Labs Follow-Up Labs: Trough: Vancomycin Date/Time Labs Ordered Labs to be done on [date and time ordered]: 04/06/24 @ 2232
[2024-04-05] MEDS: 0.9 % NaCl (Sterile) Posiflush 10 mL IV (20:56)
[2024-04-05] MEDS: Ceftriaxone 1 GM/50 ML BAG IV (21:00)
[2024-04-05] MEDS: Azithromycin 500 MG in Dextrose 5%-Water (250mL Bag) 250 ML 250 MG IV (21:46)
[2024-04-05] MEDS: Vancomycin IV 1,000 MG/200 ML BAG 200 MG IV (22:59)
[2024-04-06 02:55] VITALS: PULSE 56; O2SAT 98
[2024-04-06 03:00] VITALS: BP 131/67; PULSE 76; RESP 18; TEMP 36.6; O2SAT 100
[2024-04-06 05:02] VITALS: BMI 42.4
[2024-04-06] MEDS: SILDENAFIL CITRATE 20 MG TABLET 40 MG PO ×3 (05:56→21:51)
[2024-04-06 06:13] LABS: Absolute Lymphocyte Count 0.85 X10^3/uL (0.83-4.51); Absolute Neutrophil Count 6.5 X10^3/uL (2.0-7.7); Basophil# 0.03 X10^3/uL; Basophil% 0.4 % (0-1); Eosinophil# 0.08 X10^3/uL; Hematocrit 25.2 % (37-47); Hemoglobin 7.8 g/dL (12.0-15.0); Lymphocyte # 0.85 X10^3/ul (0.83-4.51); Lymphocyte % 10.5 % (19-41); Mean Corpuscular Hgb 27.7 pg (27.0-32.0); Mean Corpuscular Volume 89.4 fL (81-99); Monocyte# 0.57 X10^3/uL; Monocyte% 7.1 % (0-10); NRBC Flagged by Analyzer 0 % (0-5); Neutrophil # 6.49 X10^3/uL (2.7-7.7); Neutrophil % 80.5 % (47-70); Platelet Count 221 K/mm3 (150-450); RBC Distribution Width CV 14.4 % (11.6-14.6); RBC Distribution Width SD 46.9 fl (35.1-43.9); Red Blood Count 2.82 M/mm3 (4.2-5.4); White Blood Count 8.1 K/mm3 (4.4-11.0)
[2024-04-06 06:48] LABS: Anion Gap 7 (5-15); BUN 28 mg/dL (7-18); BUN/Creat Ratio 18.7 RATIO (10-20); Calcium,Total 8.9 mg/dL (8.5-10.1); Chloride 105 mmol/L (98-107); EST Glomerular Filtration Rate 35 mL/min (>60); Est Glom Filt Rate - Afr Amer 43 mL/min (>60); Estimated Creatinine Clearance 39.34 ml/min; Glucose 99 mg/dL (74-106); Potassium 3.4 mmol/L (3.5-5.1); Sodium Level 136 mmol/L (136-145)
[2024-04-06 07:35] VITALS: BP 126/55; PULSE 77; RESP 18; TEMP 36.8; O2SAT 94
[2024-04-06] MEDS: Ferrous Sulfate 325 MG Tablet PO ×3 (07:38→17:28)
[2024-04-06] MEDS: Lactobacillis Acidophilus 1 CAP PO ×4 (07:38→21:50)
[2024-04-06] MEDS: Ascorbic Acid 500 MG Tablet PO (07:39)
[2024-04-06] MEDS: Cholecalciferol (VIT D3) 25 MCG TABLET (1,000 UNITS) 50 MCG PO (07:39)
[2024-04-06] MEDS: Pantoprazole Sodium 40 MG Tablet PO (07:39)
[2024-04-06] MEDS: amLODIPine 10 MG Tablet PO (07:39)
[2024-04-06] MEDS: Magnesium Chloride 64 MG Delay Rel.Tablet PO (07:39)
[2024-04-06] MEDS: Cyanocobalamin 500 MCG Tablet 2500 MCG PO (07:40)
[2024-04-06 07:54] VITALS: O2SAT 93
[2024-04-06] MEDS: Furosemide 40 MG/4 ML Vial IV (09:27)
[2024-04-06] MEDS: Potassium Chloride Oral Tablet 20 MEQ 40 MEQ PO (09:27)
[2024-04-06] MEDS: Vancomycin IV 1,000 MG/200 ML BAG 200 MG IV (10:14)
[2024-04-06 13:26] VITALS: BP 128/55; PULSE 76; RESP 18; TEMP 36.8; O2SAT 98
--- NOTE | 2024-04-06 13:54 | CON.PCM.ID_ITS ---
Assessment & Plan Assessment/Plan (1) Pneumonia: QUALIFIERS: Pneumonia type: due to unspecified organism L aterality: left Lung location: lower lobe of lung Qualified Code(s): J18.9 - Pneumonia, unspecified organism (2) CRBSI (catheter-related bloodstream infection): PLAN: Ucx with klebs, suspected colonization given UA with wbc 10-25 and no urinary symptoms. UAgs neg. Wbc normal. Breathing better. Single bcx from port with CoNS x2. Cont vanc/ceftriaxone. H/o valve replacement, so will check TTE. If echo is ok and repeat bcx remains neg, plan on home with po abx tomorrow. Will follow, thank you HPI Consult Data Date of Consult: 04/06/24 HPI Narrative Reason for Consultation: bacteremia HPI Narrative: KAMI ROLLE, is a 78 F with R chest port in place, presented 04/03 with 1 day of fever, chills, fatigue. Had iron infusion earlier that day, no issues with port. No sick contacts. Some nausea, some dyspnea, no cough. No dysuria, no abd pain. Came to ED, admitted on azithro/ceftriaxone, then vanc added for (+) bcx. Feeling much better. Full ROS performed and neg except as noted above. REPLACED BY [facility] Medical History Wears hearing aid Loss of hearing Wears glasses Gout Walker as ambulation aid Low iron Syncope History of ulceration GERD (gastroesophageal reflux disease) Shortness of breath on exertion Non-smoker Chronic kidney disease (CKD) History of renal disease History of edema History of stress test Cardiology follow-up encounter History of echocardiogram History of atrial fibrillation Pneumonia COVID-19 Obstructive sleep apnea Chronic kidney disease, stage 3b Pleural effusion on left 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 custodial (current) use of anticoagulants Anemia of chronic renal failure, stage 3 (moderate) Nonobstructive atherosclerosis of coronary artery Longstanding persistent atrial fibrillation Acute blood loss anemia (09/24/20) Iron deficiency anemia due to chronic blood loss Chronic GI bleeding Chronic diastolic (congestive) heart failure Type 2 diabetes mellitus Essential (primary) hypertension Presence of IVC filter (09/2018) Anemia in chronic kidney disease (CKD) Acute kidney injury Bloody stool Knee pain Anemia Arthritis Hyperkalemia Non-ST elevation (NSTEMI) myocardial infarction (12/09/16) Nonrheumatic aortic (valve) stenosis Nonrheumatic mitral (valve) insufficiency Nonrheumatic tricuspid (valve) insufficiency Other secondary pulmonary hypertension Sepsis secondary to UTI Fatigue History of pneumonia Osteopenia Liver disease History of GI bleed Diverticulitis History of blood transfusion Morbid obesity Iron deficiency anemia Hyperlipidemia Home Medications ?Medication ?Instructions ?Recorded ?Last Taken ?Type sildenafil (pulm.hypertension) 20 20 mg PO TID PULMONARY HTN 11/18/17 04/03/24 13:33 History mg tablet magnesium 250 mg tablet 250 mg PO DAILY SUPPLEMENT 10/09/18 04/02/24 History ferrous sulfate 325 mg (65 mg 325 mg PO TID SUPPLEMENT 04/14/19 04/03/24 13:34 History iron) tablet (Melissa-Time) ascorbic acid (vitamin C) 500 mg 500 mg PO DAILY SUPPLEMENT 05/10/20 04/03/24 History capsule cyanocobalamin (vitamin B-12) 2,500 mcg sublingual .3XWEEK 05/10/20 04/03/24 History 2,500 mcg sublingual lozenge SUPPLEMENT pantoprazole 40 mg tablet,delayed 40 mg PO DAILY ACID REFLUX 03/06/21 04/03/24 History release furosemide 40 mg tablet 40 mg PO DAILY CHF #30 tabs 07/30/23 04/03/24 Rx cholecalciferol (vitamin D3) 50 50 mcg PO DAILY supplement 08/08/23 04/03/24 History mcg (2,000 unit) capsule amlodipine 10 mg tablet 10 mg PO DAILY BLOOD PRESSURE #90 12/11/23 04/03/24 Rx tabs Allergy/AdvReac Type Severity Reaction Status Date / Time pravastatin AdvReac Severe severe Verified 04/03/24 19:07 muscle and joint pain ceftriaxone (From Rocephin) AdvReac Mild pancreatiti Verified 04/06/24 09:36 s Family History Mother , age 83 Uterine cancer Hypertension Father , age 81 Heart disease Diabetes CAD (coronary artery disease) Hypertension Surgical History History of esophagogastroduodenoscopy (EGD) History of colonoscopy History of hysterectomy History of root canal procedure H/O aortic valve replacement (09/15/18) coil embolization of colonic artery History of left heart catheterization (LHC) (04/10/17) Status post right foot surgery History of hysterectomy History of appendectomy Social History household members: spouse housing: house Smoking Status: Never smoker alcohol intake: never substance use type: does not use caffeine: No what type of physical activity do you participate in: none divina/quaker: Mennonite seatbelt use: always do you feel safe at home: Yes Physical Exam Const alert, oriented x3 and no apparent distress General Appearance: cooperative HEENT normocephalic and head/scalp atraumatic Eyes PERRL and EOMs intact bilaterally Neck supple and No nodes Resp normal air movement and clear to auscultation bilaterally Cardio regular rate and regular rhythm GI soft to palpation, non-tender and non-distended Extremity General Extremity: edema Skin no rashes or lesions noted Skin Narrative: R chest port no inflammation Neuro CN's II-XII intact bilaterally Lab / Micro Data Attestation: I reviewed the patient's lab results. 04/06/24 05:50 04/06/24 05:50 Labs: Laboratory Results - last 24 hr 04/06/24 05:50: WBC 8.1, RBC 2.82 L, Hgb 7.8 L, Hct 25.2 L, MCV 89.4, MCH 27.7, MCHC 31.0 L, RDW Std Deviation 46.9 H, RDW Coeff of Fariba 14.4, Plt Count 221, MPV 11.0, Immature Gran % (Auto) 0.500, Neut % (Auto) 80.5 H, Lymph % (Auto) 10.5 L, [place] % (Auto) 7.1, Eos % (Auto) 1.0, Baso % (Auto) 0.4, Absolute Neuts (auto) 6.5, Absolute Lymphs (auto) 0.85, Nucleated RBC % 0, Sodium 136, Potassium 3.4 L , Chloride 105, Carbon Dioxide 24.0, Anion Gap 7, BUN 28 H, Creatinine 1.50 H, Estim Creat Clear Calc 39.34, Est GFR (MDRD) Af Amer 43 L, Est GFR (MDRD) Non-Af 35 L, BUN/Creatinine Ratio 18.7, Glucose 99, Calcium 8.9 Micro: Microbiology 04/03/24 19:41 Blood Culture (Wb) - Port Bacteria Detection (PCR) - Final Staphylococcus epidermidis 04/03/24 19:41 Blood Culture (Wb) - Port Blood Culture - Preliminary Staphylococcus species Staphylococcus species#2
--- NOTE | 2024-04-06 13:56 | ECHOLC_ITS ---
Reason For Study: ENDOCARDITIS Procedure This was a limited 2D transthoracic echocardiogram. Exam performed portable in patient room. Left Ventricle The estimated ejection fraction is 65 %. No regional wall motion abnormalities noted. Atria There is severe biatrial dilatation. Mitral Valve There is no vegetation seen on the mitral valve. There is no mitral valve stenosis. Tricuspid Valve No vegetations identified. Aortic Valve There is no aortic valvular vegetation. Stable appearing bioprosthetic aortic valve apparatus. MMode/2D Measurements & Calculations LVIDd: 5.6 cm IVSd: 1.4 cm Ao root diam: 3.3 cm LVIDs: 3.4 cm LVPWd: 2.3 cm FS: 39.0 % LAV(MOD-bp): 161.0 ml SV(MOD-sp4): 57.1 ml LVAd ap4: 28.4 cm2 LAV(MOD-bp) Indexed: 71.7 ml/m2 LVLd ap4: 7.4 cm LAV(MOD-sp2): 161.7 ml EDV(MOD-sp4): 89.3 ml LAV(MOD-sp4): 152.2 ml EDV(sp4-el): 92.5 ml LVAs ap4: 15.1 cm2 LVLs ap4: 6.1 cm ESV(MOD-sp4): 32.2 ml ESV(sp4-el): 31.5 ml EF(MOD-sp4): 64.0 % EF(sp4-el): 66.0 % SV(sp4-el): 61.0 ml LA A4 area: 38.6 cm2 LA dimension(2D): 6.5 cm RA A4 area: 30.5 cm2
--- NOTE | 2024-04-06 15:30 | CHAPLAIN ---
Type of Pastoral Visit _x__ Initial Visit ___ Follow-up Visit ___ On-call Visit ___ General Patient Visit ___ Spiritual Assessment ___ Family Conference ___ Bereavement ___ Rapid Response ___ Code Blue ___ Other (describe below) Pastoral Care Referral From _x__ Patient ___ Family ___ Nurse ___ Physician ___ Fish Protector ___ Child Nurse ___ Other (describe below) Sacrament/Intervention _x__ Active listening ___ Anointing ___ Presybeterian ___ Bereavement ___ Communion ___ Brynn exploration ___ _x__ Life review _x__ Prayer ___ Reconciliation ___ Sacrament of Sick ___ Supportive presence ___ Wedding ___ Other (describe below) Pastoral Comments patient and her have been seen before; pt is eating her lunch and describes her current situation; pt welcomes presence and prayer for support; pt's spouse is with her and he is also engaged in the conversation; prayer welcomed as the only thing I need right now;
--- NOTE | 2024-04-06 15:40 | PN_ITS ---
Subjective Subjective Patient seen and examined. She had no complaints and felt well. She had an uneventful night. Review of systems otherwise negative. Blood cultures positive for staph epidermidis (1/2 samples). ID consulted. Objective Data Objective Data Vital Signs: Vital Signs Temp Pulse Resp BP Pulse Ox O2 Del Method O2 Flow Rate 98.3 F 76 18 128/55 H 98 Room Air 4 04/06/24 13:26 04/06/24 13:26 04/06/24 13:26 04/06/24 13:26 04/06/24 13:26 04/06/24 13:26 04/06/24 04:02 FiO2 3 04/03/24 19:29 Oxygen Flow Rate (L/min) 4 Oxygen Delivery Method Room Air Weight: 263 lb 0.183 oz Body Mass Index (BMI) 42.4 Intake & Output: Intake and Output for Last 24 Hours 04/04/24 04/05/24 04/06/24 23:59 23:59 23:59 Intake Total 1425 / 1665 2095 / 2415 1190 / 1190 Output Total 0 / 0 1250 / 1250 1800 / 1800 Balance 1425 / 1665 845 / 1165 -610 / -610 Lab / Micro Data 04/06/24 05:50 04/06/24 05:50 Labs: Laboratory Results - last 24 hr 04/06/24 05:50: WBC 8.1, RBC 2.82 L, Hgb 7.8 L, Hct 25.2 L, MCV 89.4, MCH 27.7, MCHC 31.0 L, RDW Std Deviation 46.9 H, RDW Coeff of Fariba 14.4, Plt Count 221, MPV 11.0, Immature Gran % (Auto) 0.500, Neut % (Auto) 80.5 H, Lymph % (Auto) 10.5 L, [place] % (Auto) 7.1, Eos % (Auto) 1.0, Baso % (Auto) 0.4, Absolute Neuts (auto) 6.5, Absolute Lymphs (auto) 0.85, Nucleated RBC % 0, Sodium 136, Potassium 3.4 L , Chloride 105, Carbon Dioxide 24.0, Anion Gap 7, BUN 28 H, Creatinine 1.50 H, Estim Creat Clear Calc 39.34, Est GFR (MDRD) Af Amer 43 L, Est GFR (MDRD) Non-Af 35 L, BUN/Creatinine Ratio 18.7, Glucose 99, Calcium 8.9 Micro: Microbiology 04/03/24 19:41 Blood Culture (Wb) - Port Bacteria Detection (PCR) - Final Staphylococcus epidermidis 04/03/24 19:41 Blood Culture (Wb) - Port Blood Culture - Preliminary Staphylococcus species Staphylococcus species#2 04/03/24 20:45 Urine, Clean Catch Urine Culture - Final Klebsiella pneumoniae sp pneum 04/03/24 20:45 Urine, Clean Catch Legionella Antigen - Final 04/03/24 20:45 Urine, Clean Catch Streptococcus pneumoniae Antigen (M - Final 04/03/24 20:10 Mucosa - Nasopharyngeal SARS-CoV-2, Influenza & RSV (PCR) - Final Physical Exam Const alert, oriented x3, no apparent distress and well nourished General Appearance: cooperative and well developed HEENT normocephalic, head/scalp atraumatic, moist oral mucous membranes and oropharynx normal Eyes PERRL and EOMs intact bilaterally Neck no lymphadenopathy, supple and no JVD Lymph Lymphatic: no lymphadenopathy noted and no lymphedema noted Resp normal respiratory effort, normal air movement and clear to auscultation bilaterally Cardio regular rate, regular rhythm, S1 normal heart sound, S2 normal heart sound and no murmurs GI normal to inspection, nondistended, normoactive bowel sounds, soft to palpation, non-tender and non-distended Extremity normal capillary refill, no clubbing, cyanosis or edema and no calf tenderness General Extremity: no tenderness to palpation of joints or extremities Skin General Skin Exam: no breakdown Neuro CN's II-XII intact bilaterally, no focal motor deficits, no sensory deficits noted and deep tendon reflexes 2+ bilaterally Motor Exam: strength 5/5 throughout and general weakness Psych thought process normal, cooperative and affect normal Appearance: appropriate Assessment & Plan Assessment/Plan (1) CRBSI (catheter-related bloodstream infection): (2) Acute cystitis without hematuria: (3) CHF exacerbation: QUALIFIERS: Heart failure type: diastolic Qualified Code(s): I 50.33 - Acute on chronic diastolic (congestive) heart failure PLAN: Plan #Pneumonia * now on room air. Urine for strep and Legionella were negative. COVID and influenza also negative. Blood cultures pending. * On ceftriaxone and azithromycin. Breathing treatments bronchodilators. * Currently on room air. * #UTI: Urine cultures grew Klebsiella. On ceftriaxone. #Hypokalemia: K is 3.4. Will replace and trend. #Staph bacteremia * Blood cultures positive. Epidermidis. Second bottle positive for staph species. * ID consulted. 2D echo ordered. Continue IV vancomycin. * Has an artificial valve in place so 2D echo ordered to rule out any evidence of vegetation * #Elevated troponin. Has chronically elevated troponins. Thought to be due to demand ischemia from pneumonia and CHF. Clinically stable. Had an echo in January 2022 which was normal. Will monitor. #Acute exacerbation of heart failure preserved ejection fraction. Currently on IV Lasix 40 mg twice daily. #Chronic anemia: Hemoglobin is 7.8. Baseline hemoglobin is between 7-8. Will monitor. #History of aortic stenosis: Has an artificial aortic valve. Not anticoagulated due to history of GI bleeds. #Benign essential hypertension: Continue BP meds- amlodipine. #Chronic pulmonary hypertension: On sildenafil #Type 2 diabetes mellitus: Diet controlled. Insulin sliding scale. Checks ACHS. #Hyperlipidemia: She has intolerance to statins. Will monitor. #History of DVT: S/p IVC filter in 2018. #History of CKD stage IIIb: Stable. Cr is 1.5, which is around his baseline. DVT prophylaxis: SCDs Charges/Coding Visit Charges Inpatient E&M: 67006 Subs Hosp L2
[2024-04-06] MEDS: Furosemide 40 MG Tablet PO (17:28)
[2024-04-06] MEDS: Ceftriaxone 1 GM/50 ML BAG IV (21:40)
[2024-04-06] MEDS: 0.9 % NaCl (Sterile) Posiflush 10 mL IV (21:43)
[2024-04-06 21:45] VITALS: BP 157/81; PULSE 79; RESP 18; TEMP 36.6; O2SAT 96
[2024-04-06] MEDS: Azithromycin 500 MG in Dextrose 5%-Water (250mL Bag) 250 ML 250 MG IV (22:16)
[2024-04-06 23:11] LABS: Vancomycin, Trough Level 33.1 ug/mL (5.0-15.0)
--- NOTE | 2024-04-06 23:46 | PCM.RX.CS ---
Consult Antibiotic Management Pharmacy has been consulted to manage selected antibiotic: Vancomycin Type of Intervention Type of Consult: Follow-up Suspected Infection Suspected Infection: Bacteremia Labs Labs: Sodium 136 mmol/L (136-145) 04/06/24 05:50 Potassium 3.4 mmol/L (3.5-5.1) L 04/06/24 05:50 Chloride 105 mmol/L (98-107) 04/06/24 05:50 Carbon Dioxide 24.0 mmol/L (21.0-32.0) 04/06/24 05:50 Anion Gap 7 (5-15) 04/06/24 05:50 BUN 28 mg/dL (7-18) H 04/06/24 05:50 Creatinine 1.50 mg/dL (0.55-1.02) H 04/06/24 05:50 Est GFR (MDRD) Af Amer 43 mL/min (>60) L 04/06/24 05:50 Est GFR (MDRD) Non-Af 35 mL/min (>60) L 04/06/24 05:50 BUN/Creatinine Ratio 18.7 RATIO (10-20) 04/06/24 05:50 Glucose 99 mg/dL (74-106) 04/06/24 05:50 Vancomycin Trough 33.1 ug/mL (5.0-15.0) H 04/06/24 22:30 Microbiology Microbiology: Microbiology 04/03/24 19:41 Blood Culture (Wb) - Port Bacteria Detection (PCR) - Final Staphylococcus epidermidis 04/03/24 19:41 Blood Culture (Wb) - Port Blood Culture - Preliminary Staphylococcus species Staphylococcus species#2 04/03/24 20:45 Urine, Clean Catch Urine Culture - Final Klebsiella pneumoniae sp pneum 04/03/24 20:45 Urine, Clean Catch Legionella Antigen - Final 04/03/24 20:45 Urine, Clean Catch Streptococcus pneumoniae Antigen (M - Final 04/03/24 20:10 Mucosa - Nasopharyngeal SARS-CoV-2, Influenza & RSV (PCR) - Final Dosing Weight Weight used for dosin kg Estimated Creatinine Clearance Estimated Creatinine Clearance: 39 Goal Trough Goal Trough: 15-20 mcg/mL Pharmacy Plan for Drug Dosing Pharmacy Plan for Drug Dosing: Vancomycin trough level of 33.1, drawn 12.25hrs post-dose, was high. Goal range is 15-20. Will hold current dosing, and will get a random vanco level in 12 hours to determine further orders. Pharmacy Service will continue to monitor and adjust dosing as required. Follow-Up Labs Follow-Up Labs: Trough: Vancomycin (random) Date/Time Labs Ordered Labs to be done on [date and time ordered]: 04/07/24 @1030 (random)
[2024-04-07 03:40] VITALS: BP 149/60; PULSE 65; RESP 18; TEMP 36.2; O2SAT 100
[2024-04-07 04:30] VITALS: BMI 42.7
[2024-04-07] MEDS: SILDENAFIL CITRATE 20 MG TABLET 40 MG PO (05:42)
[2024-04-07 06:09] LABS: Absolute Lymphocyte Count 0.85 X10^3/uL (0.83-4.51); Absolute Neutrophil Count 5.6 X10^3/uL (2.0-7.7); Basophil# 0.04 X10^3/uL; Basophil% 0.6 % (0-1); Eosinophil# 0.08 X10^3/uL; Eosinophils% 1.1 % (0-5); Hematocrit 26.2 % (37-47); Hemoglobin 7.9 g/dL (12.0-15.0); Lymphocyte # 0.85 X10^3/ul (0.83-4.51); Lymphocyte % 12.1 % (19-41); Mean Corp Hgb Conc 30.2 g/dL (32-36); Mean Corpuscular Hgb 27.1 pg (27.0-32.0); Mean Platelet Vol. 10.9 fl (6.2-12.0); Monocyte# 0.45 X10^3/uL; Monocyte% 6.4 % (0-10); NRBC Flagged by Analyzer 0 % (0-5); Neutrophil # 5.55 X10^3/uL (2.7-7.7); Neutrophil % 79.1 % (47-70); Platelet Count 235 K/mm3 (150-450); RBC Distribution Width CV 14.5 % (11.6-14.6); Red Blood Count 2.91 M/mm3 (4.2-5.4)
[2024-04-07 06:46] LABS: Anion Gap 6 (5-15); BUN 30 mg/dL (7-18); BUN/Creat Ratio 19.7 RATIO (10-20); Calcium,Total 8.8 mg/dL (8.5-10.1); Chloride 108 mmol/L (98-107); Creatinine, Serum 1.52 mg/dL (0.55-1.02); EST Glomerular Filtration Rate 35 mL/min (>60); Est Glom Filt Rate - Afr Amer 42 mL/min (>60); Estimated Creatinine Clearance 38.97 ml/min; Glucose 97 mg/dL (74-106); Potassium 3.8 mmol/L (3.5-5.1); Sodium Level 138 mmol/L (136-145)
[2024-04-07] MEDS: Ferrous Sulfate 325 MG Tablet PO ×2 (07:38→12:18)
[2024-04-07] MEDS: Lactobacillis Acidophilus 1 CAP PO (07:38)
[2024-04-07] MEDS: Pantoprazole Sodium 40 MG Tablet PO (07:39)
[2024-04-07] MEDS: Cholecalciferol (VIT D3) 25 MCG TABLET (1,000 UNITS) 50 MCG PO (07:39)
[2024-04-07] MEDS: Ascorbic Acid 500 MG Tablet PO (07:39)
[2024-04-07] MEDS: Magnesium Chloride 64 MG Delay Rel.Tablet PO (07:39)
[2024-04-07 07:42] VITALS: O2SAT 94
[2024-04-07 09:36] VITALS: BP 137/60; PULSE 75; RESP 18; TEMP 36.3; O2SAT 95
[2024-04-07] MEDS: amLODIPine 10 MG Tablet PO (09:37)
[2024-04-07] MEDS: Polyethylene Glycol 3350 17 GM PACKET PO (09:37)
[2024-04-07] MEDS: Furosemide 40 MG Tablet PO (09:37)
--- NOTE | 2024-04-07 10:40 | PCM.PN.ID ---
Physical Exam Narrative Feeling well, no fever, no n/v/d. Const alert and no apparent distress General Appearance: cooperative Resp normal air movement and clear to auscultation bilaterally Cardio regular rate and regular rhythm GI soft to palpation, non-tender and non-distended Skin no rashes or lesions noted ID ID: Route of nutrition/ use of supplements: [] Nutritional Intake: [] IV Site: [] Govea Catheter: [] Assessment & Plan Assessment/Plan (1) Pneumonia: QUALIFIERS: Pneumonia type: due to unspecified organism Laterality: left Lung location: lower lobe of lung Qualified Code(s): J18.9 - Pneumonia, unspecified organism (2) CRBSI (catheter-related bloodstream infection): PLAN: Ucx with klebs, suspected colonization given UA with wbc 10-25 and no urinary symptoms. UAgs neg. Wbc normal. Breathing better. Single bcx from port with MSSE and alloiococcus. On vanc/ceftriaxone. H/o valve replacement, per report had neg TTE. Repeat bcx remains neg, ok for home with 5 more days keflex 500mg tid. Will follow
[2024-04-07 10:59] LABS: Vancomycin, Random Level 30.4 ug/mL (0.0-15.0)
--- NOTE | 2024-04-07 11:29 | DCINST_ITS ---
Discharge Instructions Diet Discharge Diet: Low fat / Low cholesterol Activity Discharge Activity: Return to Normal Activity Weight Bearing Status: Weight bearing as tolerated Dressing / Incision Call your doctor if you observe: Fever of 101 or Higher, Shortness of breath, Dizziness, Swelling in the ankles and Chest pain Follow Up Care Test Results: Test results from this visit will be discussed in further detail at your follow- up appointment, if applicable. Discharge Plan Admission Admit Date/Time: 04/03/24 22:50 Primary Reason for Your Visit: pneumonia, staph bacteremia Attending Provider: Karen Victoria Primary Care Provider: Chiquis Santana Consulting Providers: Eric Thapa; Zeus Vear; Carlos Peacock Instructions Patient Instructions: ED Pneumonia (Adult) Discharge Orders/Prescriptions Prescriptions: New cephalexin 500 mg tablet 500 mg PO Q8H Qty: 15 0RF Continued magnesium 250 mg tablet 250 mg PO DAILY ferrous sulfate [Melissa-Time] 325 mg (65 mg iron) tablet 325 mg PO TID cyanocobalamin (vitamin B-12) 2,500 mcg lozenge 2,500 mcg sublingual .3XWEEK ascorbic acid (vitamin C) 500 mg capsule 500 mg PO DAILY cholecalciferol (vitamin D3) 50 mcg (2,000 unit) capsule 50 mcg PO DAILY pantoprazole 40 mg tablet,delayed release (DR/EC) 40 mg PO DAILY sildenafil (pulm.hypertension) 20 MG tablet 20 mg PO TID furosemide 40 mg tablet 40 mg PO DAILY Qty: 30 2RF amlodipine 10 mg tablet 10 mg PO DAILY Qty: 90 3RF Referrals / Follow Up: Chiquis Santana, DNAIELE-C [Primary Care Provider] - Within 1 Week Disposition Disposition (needs filled in before D/C Order can be placed): Home, Self Care
--- NOTE | 2024-04-07 11:29 | DS.PCM_ITS ---
Providers Date of Admission: 04/03/24 Date of Discharge: 04/07/24 Primary Care Physician: ROSALIND Johnson Consultations 04/06/24 08:19 Consult: Infectious Disease Routine Consulting Provider: Carlos Peacock Reason for Consult: staph bacteremia EMERGENT Consult: No MD Notified: Yes Date Notified: 04/06/24 Time Notified: 08:23 Method of Notification: Text Reason For Visit: LLL PNA, AE CHF, ACUTE CYSTITIS AND ELEVATED Diagnosis Discharge Diagnosis (1) Pneumonia: Status: Acute Code(s): J18.9 - Pneumonia, unspecified organism Qualifiers: Laterality: left Lung location: lower lobe of lung Pneumonia type: due to unspecified organism Qualified Code(s): J18.9 - Pneumonia, unspecified organism (2) CRBSI (catheter-related bloodstream infection): Status: Acute Code(s): T80.211A - Bloodstream infection due to central venous catheter, initial encounter Plan #Pneumonia * now on room air. Urine for strep and Legionella were negative. COVID and influenza also negative. Blood cultures pending. * On ceftriaxone and azithromycin. Breathing treatments bronchodilators. * Currently on room air. * #UTI: Urine cultures grew Klebsiella. On ceftriaxone. #Hypokalemia: K is 3.4. Will replace and trend. #Staph bacteremia * Blood cultures positive. Epidermidis. Second bottle positive for staph species. * ID consulted. 2D echo ordered. Continue IV vancomycin. * Has an artificial valve in place so 2D echo ordered to rule out any evidence of vegetation * #Elevated troponin. Has chronically elevated troponins. Thought to be due to demand ischemia from pneumonia and CHF. Clinically stable. Had an echo in January 2022 which was normal. Will monitor. #Acute exacerbation of heart failure preserved ejection fraction. Currently on IV Lasix 40 mg twice daily. #Chronic anemia: Hemoglobin is 7.8. Baseline hemoglobin is between 7-8. Will monitor. #History of aortic stenosis: Has an artificial aortic valve. Not anticoagulated due to history of GI bleeds. #Benign essential hypertension: Continue BP meds- amlodipine. #Chronic pulmonary hypertension: On sildenafil #Type 2 diabetes mellitus: Diet controlled. Insulin sliding scale. Checks ACHS. #Hyperlipidemia: She has intolerance to statins. Will monitor. #History of DVT: S/p IVC filter in 2019. #History of CKD stage IIIb: Stable. Cr is 1.5, which is around his baseline. DVT prophylaxis: SCDs Medications at Discharge Home Medications sildenafil (pulm.hypertension) 20 mg tablet 20 mg PO TID PULMONARY HTN 11/18/17 magnesium 250 mg tablet 250 mg PO DAILY SUPPLEMENT 10/09/18 ferrous sulfate 325 mg (65 mg iron) tablet (Melissa-Time) 325 mg PO TID SUPPLEMENT 04/14/19 ascorbic acid (vitamin C) 500 mg capsule 500 mg PO DAILY SUPPLEMENT 05/10/20 cyanocobalamin (vitamin B-12) 2,500 mcg sublingual lozenge 2,500 mcg sublingual .3XWEEK SUPPLEMENT 05/10/20 pantoprazole 40 mg tablet,delayed release 40 mg PO DAILY ACID REFLUX 03/06/21 furosemide 40 mg tablet 40 mg PO DAILY CHF #30 tabs 07/30/23 cholecalciferol (vitamin D3) 50 mcg (2,000 unit) capsule 50 mcg PO DAILY supplement 08/08/23 amlodipine 10 mg tablet 10 mg PO DAILY BLOOD PRESSURE #90 tabs 12/11/23 cephalexin 500 mg tablet 500 mg PO Q8H #15 tabs 04/07/24 Hospital Course Operations None Procedures 2-D Echocardiogram Summary of Care Provided Minutes Spent on Discharge: 55 Hospital Course: Patient is an 78-year-old female with a past medical history as outlined who was admitted through the ED on 04/03/2024 with a complaint of fever, shortness of breath and fatigue which had started about 6 hours prior to admission. His shortness of breath worsened with exertion. She denied any associated cough, nausea vomiting or diarrhea or any other symptoms. Chest x-ray done showed evidence of left lower lobe infiltrate and urinalysis also showed evidence of UTI. Initial troponin was 321 and BNP was also elevated at 277. She was admitted and managed for hypoxia due to community-acquired pneumonia as well as UTI. She was started on ceftriaxone and azithromycin. Urine cultures grew Klebsiella which was sensitive to ceftriaxone. Blood cultures were positive for Staph epidermidis. ID was consulted. She had vancomycin added on. 2D echo was done in light of her having an artificial aortic valve. 2D echo showed no evidence of vegetation. Patient felt much better and was weaned off of oxygen. Her troponins were thought to be chronically elevated and was likely due to demand ischemia from pneumonia and CHF. She was also diuresed with Lasix. ID was consulted in light of the staph bacteremia. Repeat blood cultures ordered by ID were negative at time of discharge. ID recommended the patient be discharged home on p.o. Keflex 500 mg 3 times daily for 5 days. She was given a prescription for this and discharged home on 04/07/2024. She is follow-up with her primary care doctor within 1 to 2 weeks. Patient seen and examined prior to discharge. She felt much better and had no complaints. She had an uneventful night. Review of systems otherwise negative. Labs and vitals reviewed. Home medication reviewed on consult. Physical Exam Const alert, oriented x3, no apparent distress, average body habitus and well nourished General Appearance: cooperative, comfortable, well kempt and well developed Orientation / Consciousness: awake HEENT normocephalic, head/scalp atraumatic, hearing grossly normal bilaterally, moist oral mucous membranes and oropharynx normal Mouth: oral and palatal mucosa normal Eyes PERRL and EOMs intact bilaterally Neck no lymphadenopathy, supple and no JVD Lymph Lymphatic: no lymphadenopathy noted and no lymphedema noted Resp normal respiratory effort, normal air movement, no retractions, no use of accessory muscles and clear to auscultation bilaterally Resp Narrative: On room air Cardio regular rate, regular rhythm, S1 normal heart sound, S2 normal heart sound and no murmurs GI normal to inspection, nondistended, normoactive bowel sounds, soft to palpation, non-tender and non-distended Extremity normal to inspection, full ROM, normal capillary refill, no clubbing, cyanosis or edema and no calf tenderness General Extremity: edema bilateral lower extremity Details: moderate (with venous stasis discoloration bilaterally. ) and no tenderness to palpation of joints or extremities Skin no rashes or lesions noted General Skin Exam: no breakdown Neuro oriented x3, CN's II-XII intact bilaterally, moves all extremities, no focal motor deficits, no sensory deficits noted and deep tendon reflexes 2+ bilaterally Sensorium / Orientation: awake, alert, oriented to person, oriented to place and oriented to time Speech: speech normal Motor Exam: strength 5/5 throughout and general weakness Psych thought process normal, cooperative and affect normal Appearance: appropriate Weight / BMI Weight Weight: 264 lb 12.403 oz Body Mass Index (BMI) 42.7 ABG / Lab / Microbiology Data 04/07/24 05:50 04/07/24 05:50 Laboratory: Laboratory Results - last 24 hr 04/06/24 22:30: Vancomycin Trough 33.1 H 04/07/24 05:50: WBC 7.0, RBC 2.91 L, Hgb 7.9 L, Hct 26.2 L, MCV 90.0, MCH 27.1, MCHC 30.2 L, RDW Std Deviation 47.0 H, RDW Coeff of Fariba 14.5, Plt Count 235, MPV 10.9, Immature Gran % (Auto) 0.700, Neut % (Auto) 79.1 H, Lymph % (Auto) 12.1 L, [place] % (Auto) 6.4, Eos % (Auto) 1.1, Baso % (Auto) 0.6, Absolute Neuts (auto) 5.6, Absolute Lymphs (auto) 0.85, Nucleated RBC % 0, Sodium 138, Potassium 3.8, Chloride 108 H, Carbon Dioxide 24.0, Anion Gap 6, BUN 30 H, Creatinine 1.52 H, Estim Creat Clear Calc 38.97, Est GFR (MDRD) Af Amer 42 L, Est GFR (MDRD) Non-Af 35 L, BUN/Creatinine Ratio 19.7, Glucose 97, Calcium 8.8 04/07/24 10:00: Random Vancomycin 30.4 H Microbiology: Microbiology 04/05/24 09:00 Blood Culture (Wb) - Anticubital Right Blood Culture - Preliminary No growth in 48 hours. 04/03/24 19:41 Blood Culture (Wb) - Port Bacteria Detection (PCR) - Final Staphylococcus epidermidis 04/03/24 19:41 Blood Culture (Wb) - Port Blood Culture - Final Staphylococcus epidermidis Alloiococcus otitis 04/03/24 20:45 Urine, Clean Catch Urine Culture - Final Klebsiella pneumoniae sp pneum 04/03/24 20:45 Urine, Clean Catch Legionella Antigen - Final 04/03/24 20:45 Urine, Clean Catch Streptococcus pneumoniae Antigen (M - Final 04/03/24 20:10 Mucosa - Nasopharyngeal SARS-CoV-2, Influenza & RSV (PCR) - Final D/C Instructions Discharge Diet: Low fat / Low cholesterol Discharge Activity: Return to Normal Activity Weight Bearing Status: Weight bearing as tolerated Call your doctor if you observe: Fever of 101 or Higher, Shortness of breath, Dizziness, Swelling in the ankles and Chest pain Meaningful Use Info Meaningful Use Meaningful Use Diagnoses (Choose all that apply): None applicable Ischemic Stroke Statin Dosing Therapy Reference: STATIN DOSE THERAPY REFERENCE: * Patients > 75 years receive moderate or high dose statin therapy. * Patients 75 years or YOUNGER should receive HIGH intensity statin dose unless contraindicated. You will be required to document reason for non-treatment if statin daily dose does not meet guidelines. HIGH DOSE STATIN THERAPY DAILY Atorvastatin > than or = to 40 mg Rosuvastatin > than or = to 20 mg Amlodipine + Atorvastatin > than or = to 2.5/40 mg Ezetimibe + Simvastatin 10/80 mg Simvastatin 80mg Discharge Plan Admission Admit Date/Time: 04/03/24 22:50 Primary Reason for Your Visit: pneumonia, staph bacteremia Attending Provider: Karen Victoria Primary Care Provider: Chiquis Santana Consulting Providers: Eric Thapa; Zeus Vera; Carlos Peacock Instructions Patient Instructions: ED Pneumonia (Adult) Discharge Orders/Prescriptions Prescriptions: New cephalexin 500 mg tablet 500 mg PO Q8H Qty: 15 0RF Continued magnesium 250 mg tablet 250 mg PO DAILY ferrous sulfate [Melissa-Time] 325 mg (65 mg iron) tablet 325 mg PO TID cyanocobalamin (vitamin B-12) 2,500 mcg lozenge 2,500 mcg sublingual .3XWEEK ascorbic acid (vitamin C) 500 mg capsule 500 mg PO DAILY cholecalciferol (vitamin D3) 50 mcg (2,000 unit) capsule 50 mcg PO DAILY pantoprazole 40 mg tablet,delayed release (DR/EC) 40 mg PO DAILY sildenafil (pulm.hypertension) 20 MG tablet 20 mg PO TID furosemide 40 mg tablet 40 mg PO DAILY Qty: 30 2RF amlodipine 10 mg tablet 10 mg PO DAILY Qty: 90 3RF Referrals / Follow Up: Chiquis Santana, DANIELE-C [Primary Care Provider] - 04/10/24 1:30 pm Disposition Disposition (needs filled in before D/C Order can be placed): Home, Self Care Charges/Coding Visit Charges Inpatient E&M: 25546 Disch Hosp >30min
--- NOTE | 2024-04-07 12:58 | CASEMGMT ---
Patient has order for discharge. RN CM in to discuss needs at discharge. Patient did well with therapy. Patient denies needs or help at discharge. Patient had no further questions or concerns.
[2024-04-07] MEDS: 0.9 % NaCl (Sterile) Posiflush 10 mL IV (13:21)
[2024-04-07 13:26] VITALS: BP 135/51; PULSE 81; RESP 18; TEMP 36.5; O2SAT 96
== END 2024-04-07 13:50 | disposition home or self-care (01) | DRG 193 ==
LOC: ED 19:50 → PCU 22:46
PROVIDERS: Family Medicine; Admitting Provider Internal Medicine; Emergency Provider Emergency Medicine; PCP Nurse Practitioner Family; Visit Provider Student in an Organized Health Care Education/Training Program
DX: J18.9 Pneumonia, unspecified organism (principal); I50.33 Acute on chronic diastolic (congestive) heart failure; R78.81 Bacteremia; I48.20 Chronic atrial fibrillation, unspecified; Z68.41 Body mass index [BMI] 40.0-44.9, adult; I13.0 Hypertensive heart and chronic kidney disease with heart failure and stage 1 through stage 4 chronic kidney disease, or unspecified chronic kidney disease; N30.00 Acute cystitis without hematuria; I27.20 Pulmonary hypertension, unspecified; E11.22 Type 2 diabetes mellitus with diabetic chronic kidney disease; B95.8 Unspecified staphylococcus as the cause of diseases classified elsewhere; N18.32 Chronic kidney disease, stage 3b; D64.9 Anemia, unspecified; T80.211A Bloodstream infection due to central venous catheter, initial encounter; E66.01 Morbid (severe) obesity due to excess calories; I25.10 Atherosclerotic heart disease of native coro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 pectoris; M19.90 Unspecified osteoarthritis, unspecified site; I25.2 Old myocardial infarction; E78.5 Hyperlipidemia, unspecified; G47.33 Obstructive sleep apnea (adult) (pediatric); K21.9 Gastro-esophageal reflux disease without esophagitis; E87.6 Hypokalemia; B96.1 Klebsiella pneumoniae [K. pneumoniae] as the cause of diseases classified elsewhere; Z86.16 Personal history of COVID-19; Z79.899 Other long term (current) drug therapy; Z86.718 Personal history of other venous thrombosis and embolism; X58.XXXA Exposure to other specified factors, initial encounter
CPT/HCPCS: 36415; 36430; 36591; 71046; 80048; 80053; 80202; 81001; 82728; 82962; 83540; 83550; 83605; 83735; 83880; 84100; 84443; 84484; 85025; 85027; 85045; 86850; 86900; 86901; 86920; 86922; 87040; 87077; 87086; 87088; 87149; 87186; 87449; 87631; 93005; 93308; 94660; 94668; 96365; 97110; 97116; 97162; 97165; 99252; 99285; J1439; P9016; A4216; G0463; J1940

== ENCOUNTER 2024-04-17 12:53 | Outpatient (CLI) | payer MEDICARE, OTHER, SELFPAY ==
[2024-04-17 13:42] LABS: Absolute Lymphocyte Count 0.92 X10^3/uL (0.83-4.51); Absolute Neutrophil Count 5.5 X10^3/uL (2.0-7.7); Basophil# 0.04 X10^3/uL; Basophil% 0.6 % (0-1); Eosinophil# 0.09 X10^3/uL; Eosinophils% 1.3 % (0-5); Hematocrit 27.8 % (37-47); Hemoglobin 8.4 g/dL (12.0-15.0); Lymphocyte # 0.92 X10^3/ul (0.83-4.51); Lymphocyte % 13.4 % (19-41); Mean Corp Hgb Conc 30.2 g/dL (32-36); Mean Corpuscular Hgb 27.7 pg (27.0-32.0); Mean Corpuscular Volume 91.7 fL (81-99); Mean Platelet Vol. 11.7 fl (6.2-12.0); Monocyte# 0.31 X10^3/uL; Monocyte% 4.5 % (0-10); NRBC Flagged by Analyzer 0 % (0-5); Neutrophil # 5.48 X10^3/uL (2.7-7.7); Neutrophil % 79.8 % (47-70); Platelet Count 199 K/mm3 (150-450); RBC Distribution Width CV 16.1 % (11.6-14.6); RBC Distribution Width SD 53.6 fl (35.1-43.9); Red Blood Count 3.03 M/mm3 (4.2-5.4); White Blood Count 6.9 K/mm3 (4.4-11.0)
[2024-04-17 14:33] LABS: Anion Gap 5 (5-15); BUN 41 mg/dL (7-18); BUN/Creat Ratio 25.2 RATIO (10-20); Calcium,Total 9.2 mg/dL (8.5-10.1); Chloride 109 mmol/L (98-107); Creatinine, Serum 1.63 mg/dL (0.55-1.02); EST Glomerular Filtration Rate 32 mL/min (>60); Est Glom Filt Rate - Afr Amer 39 mL/min (>60); Glucose 159 mg/dL (74-106); Potassium 4.1 mmol/L (3.5-5.1); Sodium Level 139 mmol/L (136-145)
[2024-04-17 21:31] LABS: Xtra Tube EP Lab EXTRA TUBE
== END 2024-04-17 23:59 | disposition home or self-care (01) ==
LOC: MEDOUTP 12:54
PROVIDERS: PCP Nurse Practitioner Family; Referring Provider Nurse Practitioner Family; Visit Provider Nurse Practitioner Family
DX: J18.9 Pneumonia, unspecified organism (principal)
CPT/HCPCS: 36591; 80048; 85025

== ENCOUNTER → 2024-07-26 | Outpatient (CLI) | payer MEDICARE, OTHER, SELFPAY ==
[2024-07-26 13:54] LABS: Mucous, Urine 0 SEEN /hpf (<or=2+); Squamous Epithelial Cells - UA 0 SEEN /hpf (5-10)
[2024-07-26 14:18] LABS: Color, Urine Yellow (Yellow); Urine Clarity Clear (Clear)
[2024-07-26 14:19] LABS: Glucose, Dipstick Normal (Normal); Ketone-Dipstick Negative (Negative); Leukocyte Esterase-Dipstick 500 /ul (Negative); Nitrite-Dipstick Positive (Negative); Occult Blood-Urine 25 /ul (Negative); Protein-Dipstick 100 mg/dl (Negative); Urine Bilirubin Dipstick Negative (Negative); Urine Urobilinogen Normal (Normal); White Blood Cells >100 SEEN /hpf (0-5)
[2024-07-26 14:20] LABS: Bacteria 3+ /hpf (None Seen); Red Blood Cells-Urine 10-25 SEEN /hpf (0-5)
== END | disposition home or self-care (01) ==
PROVIDERS: PCP Nurse Practitioner Family; Referring Provider Nurse Practitioner Family; Visit Provider Nurse Practitioner Family
DX: N39.0 Urinary tract infection, site not specified (principal)
CPT/HCPCS: 81001; 87086; 87088; 87186

== ENCOUNTER 2024-08-06 13:19 | Inpatient (IN) | payer MEDICARE, OTHER, SELFPAY ==
[2024-08-06] VITALS (27 sets, daily range): BP systolic 87–181; BP diastolic 41–74; PULSE 50–115; RESP 12–35; TEMP 36.6–39.6; O2SAT 90–100; BMI 41.8; BMI 41.9
--- NOTE | 2024-08-06 13:25 | EKG12_ITS ---
Test Reason : SOB Blood Pressure : */* mmHG Vent. Rate : 98 BPM Atrial Rate : * BPM P-R Int : * ms QRS Dur : 86 ms QT Int : 284 ms P-R-T Axes : * 47 158 degrees QTcB Int : 362 ms Atrial fibrillation Cannot rule out Inferior infarct , age undetermined Possible Anterior infarct Abnormal ECG Confirmed by HARPAL BALDWIN, AMY ([id number]), editor city OPAL PATTERSON ([id number]) on 08/07/2024 8:13:47 AM Referred By: Confirmed By: AMY ROWAN MD
[2024-08-06] MEDS: Acetaminophen 500 MG Tablet 1000 MG PO (13:38)
[2024-08-06] MEDS: 0.9% Normal Saline (1000mL) 1,000 ML 999 ML IV ×2 (13:38→14:44)
[2024-08-06] MEDS: Albuterol 2.5 MG/3 ML VIAL.NEB. 5 MG INHALATION (13:46)
[2024-08-06] MEDS: Ipratropium/Albuterol Sulfate 3 ML AMPUL.NEB INHALATION (13:46)
--- NOTE | 2024-08-06 13:46 | EDS_ITS ---
HPI History of Present Illness Chief Complaint: Shortness of Breath Detail of Chief Complaint: Fever and shortness of breath [facility] Medical History (Updated 07/26/24 @ 10:15 by Lazaro Figueredo ELECTRIC DETECTOR OPERATOR, ELECTRIC DETECTOR OPERATOR-C) Urinary tract infection CRBSI (catheter-related bloodstream infection) Morbid obesity with BMI of 40.0-44.9, adult Elevated troponin Wears hearing aid Loss of hearing Wears glasses Gout Walker as ambulation aid Low iron Syncope History of ulceration GERD (gastroesophageal reflux disease) Shortness of breath on exertion Non-smoker Chronic kidney disease (CKD) History of renal disease History of edema History of stress test Cardiology follow-up encounter History of echocardiogram History of atrial fibrillation Pneumonia COVID-19 Obstructive sleep apnea Chronic kidney disease, stage 3b Pleural effusion on left 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 long-term (current) use of anticoagulants Anemia of chronic renal failure, stage 3 (moderate) Nonobstructive atherosclerosis of coronary artery Longstanding persistent atrial fibrillation Acute blood loss anemia (09/24/20) Iron deficiency anemia due to chronic blood loss Chronic GI bleeding Chronic diastolic (congestive) heart failure Type 2 diabetes mellitus Essential (primary) hypertension Presence of IVC filter (09/2018) Anemia in chronic kidney disease (CKD) Acute kidney injury Bloody stool Knee pain Anemia Arthritis Hyperkalemia Non-ST elevation (NSTEMI) myocardial infarction (12/09/16) Nonrheumatic aortic (valve) stenosis Nonrheumatic mitral (valve) insufficiency Nonrheumatic tricuspid (valve) insufficiency Other secondary pulmonary hypertension Sepsis secondary to UTI Fatigue History of pneumonia Osteopenia Liver disease History of GI bleed Diverticulitis History of blood transfusion Morbid obesity Iron deficiency anemia Hyperlipidemia Home Medications ?Medication ?Instructions ?Recorded ?Last Taken ?Type magnesium 250 mg tablet 250 mg PO DAILY SUPPLEMENT 10/09/18 04/02/24 History ferrous sulfate 325 mg (65 mg 325 mg PO TID SUPPLEMENT 04/14/19 04/03/24 13:34 History iron) tablet (Melissa-Time) pantoprazole 40 mg tablet,delayed 40 mg PO DAILY ACID REFLUX 03/06/21 04/03/24 History release cholecalciferol (vitamin D3) 50 50 mcg PO DAILY supplement 08/08/23 04/03/24 History mcg (2,000 unit) capsule amlodipine 10 mg tablet 10 mg PO DAILY BLOOD PRESSURE #90 12/11/23 04/03/24 Rx tabs furosemide 40 mg tablet 40 mg PO DAILY CHF #90 tabs 04/22/24 Unknown Rx sildenafil (pulm.hypertension) 20 40 mg PO TID PULMONARY HTN 05/27/24 Unknown History mg tablet apixaban 2.5 mg tablet (Eliquis) 2.5 mg PO BID 6 weeks because of 07/22/24 Unknown History receiving a ascorbic acid (vitamin C) 500 mg 500 mg PO TID SUPPLEMENT 07/22/24 Unknown History capsule cyanocobalamin (vitamin B-12) 2,500 mcg sublingual MOWEFR 07/22/24 Unknown History 2,500 mcg sublingual lozenge SUPPLEMENT wheat dextrin [Benefiber Clear SF PO 07/22/24 Unknown History (dextrin)] ciprofloxacin HCl 250 mg tablet 250 mg PO BID 08/06/24 Unknown History Allergy/AdvReac Type Severity Reaction Status Date / Time pravastatin AdvReac Severe severe Verified 07/26/24 09:50 muscle and joint pain ceftriaxone (From Rocephin) AdvReac Mild pancreatiti Verified 07/26/24 09:50 s Family History Mother , age 83 Uterine cancer Hypertension Father , age 81 Heart disease Diabetes CAD (coronary artery disease) Hypertension Surgical History 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) History of esophagogastroduodenoscopy (EGD) History of colonoscopy History of hysterectomy History of root canal procedure H/O aortic valve replacement (09/15/18) coil embolization of colonic artery History of left heart catheterization (LHC) (04/10/17) Status post right foot surgery History of hysterectomy History of appendectomy Social History household members: spouse housing: house Smoking Status: Never smoker alcohol intake: never substance use type: does not use caffeine: No what type of physical activity do you participate in: none divina/scientology: M[employer]onite seatbelt use: always do you feel safe at home: Yes EXAM Physical Exam Const Vital Signs: 08/06/24 13:19 08/06/24 13:19 08/06/24 13:23 Temperature 103.2 F H 103.1 F H Temperature Source Oral Oral Pulse Rate 115 H 115 H Respiratory Rate 35 H 32 H Respiratory Effort Short of Breath Respiratory Depth Normal Respiratory Pattern Normal Blood Pressure 181/51 H 181/51 H Blood Pressure Mean 94 94 Pulse Ox 94 94 Oxygen Delivery Method Room Air Room Air Room Air Oxygen Flow Rate (L/min) 08/06/24 13:25 08/06/24 13:46 08/06/24 13:46 Temperature Temperature Source Pulse Rate 102 H Respiratory Rate 21 H Respiratory Effort Respiratory Depth Respiratory Pattern Tachypnea Blood Pressure Blood Pressure Mean Pulse Ox 97 Oxygen Delivery Method Nasal Cannula Nasal Cannula Oxygen Flow Rate (L/min) 2 2 MDM MDM MDM Narrative Medical decision making narrative: I have personally performed a face to face assessment of the patient and have reviewed the ALESSANDRO Note. I performed a substantive portion of the visit including all aspects of the following. My hernandez findings include: History is [patient presents to the emergency department via EMS from home with complaint of shortness of breath. Patient states that she woke up yesterday morning and did not feel well and had a low-grade temperature. She complained of vertigo type symptoms. Today progressively more short of breath. She is gained 6 to 8 pounds this week. Patient does have history of CHF. She had the Watchman procedure performed in June of this year and is currently on Eliquis. Patient denies significant cough. She denies rashes. She tells me she was diagnosed with a UTI last week and was placed on Cipro for 6 days. Patient denies vomiting or diarrhea. She denies abdominal pain. Patient states that she took a home COVID test this morning and was negative.] Exam is [HEENT-PERRLA, EOMI. Cranial nerves II through XII grossly intact. TMs clear. Mucous membranes moist. No adenopathy. Cardiovascular-regular rate and rhythm without murmur or ectopy Lungs-good aeration bilaterally. Some mild conversational dyspnea. Patient does have Rales noted in both bases. Patient does have tachypnea. Abdomen-normoactive bowel sounds, soft, nontender, no rebound or rigidity, no peritoneal signs. Extremities-intact ?4, normal range of motion, normal pulses, atraumatic. No significant edema to the lower extremities. No cellulitic changes.] Medical Decison Making [patient presents with fever and dyspnea. Concern for CHF and infectious etiology such as possible pneumonia. Will obtain lab workup as well as chest x-ray.] We will be judicious with fluids given her history of CHF and rales in the bases and recent weight gain. Also suspect possibility for infectious etiology given the fever and the elevated white blood cell count. Will start empirically on Zosyn although initially source unclear. Other additions or changes: [None] Lab Data Labs: Laboratory Results - last 24 hr 08/06/24 13:41 WBC 21.4 H RBC 3.11 L Hgb 9.4 L Hct 29.2 L MCV 93.9 MCH 30.2 MCHC 32.2 RDW Std Deviation 45.6 H RDW Coeff of Fariba 13.2 Plt Count 264 MPV 10.8 Immature Gran % (Auto) 0.800 Neut % (Auto) 94.4 H Lymph % (Auto) 1.8 L [place] % (Auto) 2.8 Eos % (Auto) 0.0 Baso % (Auto) 0.2 Absolute Neuts (auto) 20.2 H Absolute Lymphs (auto) 0.38 L Nucleated RBC % 0 PT 20.2 H INR 1.7 APTT 40.6 H Discharge Plan Triage Chief Complaint: Shortness of Breath ED Midlevel Provider: Saleem Leonardo ED Provider: Hayde Ruvalcaba Dx/Rx/DC Orders Prescriptions: No Action magnesium 250 mg tablet 250 mg PO DAILY ferrous sulfate [Melissa-Time] 325 mg (65 mg iron) tablet 325 mg PO TID ascorbic acid (vitamin C) 500 mg capsule 500 mg PO TID cyanocobalamin (vitamin B-12) 2,500 mcg lozenge 2,500 mcg sublingual MOWEFR cholecalciferol (vitamin D3) 50 mcg (2,000 unit) capsule 50 mcg PO DAILY Eliquis 2.5 mg tablet 2.5 mg PO BID wheat dextrin [Benefiber Clear SF (dextrin)] PO pantoprazole 40 mg tablet,delayed release (DR/EC) 40 mg PO DAILY sildenafil (pulm.hypertension) 20 mg tablet 40 mg PO TID ciprofloxacin HCl 250 mg tablet 250 mg PO BID amlodipine 10 mg tablet 10 mg PO DAILY Qty: 90 3RF furosemide 40 mg tablet 40 mg PO DAILY Qty: 90 3RF Primary Care Provider: Chiquis Santana Referrals: Chiquis Santana, ELECTRIC DETECTOR OPERATOR-C [Primary Care Provider] - Print Language: Nam[place]ian
[2024-08-06 13:52] LABS: Absolute Lymphocyte Count 0.38 X10^3/uL (0.83-4.51); Absolute Neutrophil Count 20.2 X10^3/uL (2.0-7.7); Basophil# 0.05 X10^3/uL; Basophil% 0.2 % (0-1); Hematocrit 29.2 % (37-47); Hemoglobin 9.4 g/dL (12.0-15.0); Lymphocyte # 0.38 X10^3/ul (0.83-4.51); Lymphocyte % 1.8 % (19-41); Mean Corp Hgb Conc 32.2 g/dL (32-36); Mean Corpuscular Hgb 30.2 pg (27.0-32.0); Mean Corpuscular Volume 93.9 fL (81-99); Mean Platelet Vol. 10.8 fl (6.2-12.0); Monocyte% 2.8 % (0-10); NRBC Flagged by Analyzer 0 % (0-5); Neutrophil # 20.15 X10^3/uL (2.7-7.7); Neutrophil % 94.4 % (47-70); POSITIVE DIFFERENTIAL YES; Platelet Count 264 K/mm3 (150-450); RBC Distribution Width CV 13.2 % (11.6-14.6); RBC Distribution Width SD 45.6 fl (35.1-43.9); Red Blood Count 3.11 M/mm3 (4.2-5.4); White Blood Count 21.4 K/mm3 (4.4-11.0)
[2024-08-06 13:57] LABS: Differential Indicated SCAN CRITERIA MET
--- NOTE | 2024-08-06 13:59 | EDS_ITS ---
HPI <ROSALIND Multani - Last Filed: 08/06/24 15:56> History of Present Illness Chief Complaint: Shortness of Breath Narrative Narrative: Patient is an 79-year-old female with history of atrial fibrillation, on Eliquis, hypertension, CHF, obesity who presents to the emergency department with fever, chills, shortness of breath. Patient states that she recently finished Cipro for UTI however she felt like she was hanging onto a lot of water. Patient states that shortness of breath started today as well as the fever. Patient denies any nausea or vomiting. Denies any sick contacts. [facility] <ROSALIND Multani - Last Filed: 08/06/24 15:56> [facility] Medical History (Updated 08/06/24 @ 15:55 by ROSALIND Multani) Urinary tract infection CRBSI (catheter-related bloodstream infection) Morbid obesity with BMI of 40.0-44.9, adult Elevated troponin Wears hearing aid Loss of hearing Wears glasses Gout Walker as ambulation aid Low iron Syncope History of ulceration GERD (gastroesophageal reflux disease) Shortness of breath on exertion Non-smoker Chronic kidney disease (CKD) History of renal disease History of edema History of stress test Cardiology follow-up encounter History of echocardiogram History of atrial fibrillation Pneumonia COVID-19 Obstructive sleep apnea Chronic kidney disease, stage 3b Pleural effusion on left 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 Anemia of chronic renal failure, stage 3 (moderate) Nonobstructive atherosclerosis of coronary artery Longstanding persistent atrial fibrillation Acute blood loss anemia (09/24/20) Iron deficiency anemia due to chronic blood loss Chronic GI bleeding Chronic diastolic (congestive) heart failure Type 2 diabetes mellitus Essential (primary) hypertension Presence of IVC filter (09/2018) Anemia in chronic kidney disease (CKD) Acute kidney injury Bloody stool Knee pain Anemia Arthritis Hyperkalemia Non-ST elevation (NSTEMI) myocardial infarction (12/09/16) Nonrheumatic aortic (valve) stenosis Nonrheumatic mitral (valve) insufficiency Nonrheumatic tricuspid (valve) insufficiency Other secondary pulmonary hypertension Sepsis secondary to UTI Fatigue History of pneumonia Osteopenia Liver disease History of GI bleed Diverticulitis History of blood transfusion Morbid obesity Iron deficiency anemia Hyperlipidemia Home Medications ?Medication ?Instructions ?Recorded ?Last Taken ?Type magnesium 250 mg tablet 250 mg PO DAILY SUPPLEMENT 10/09/18 08/05/24 History ferrous sulfate 325 mg (65 mg 325 mg PO TID SUPPLEMENT 04/14/19 08/06/24 History iron) tablet (Melissa-Time) pantoprazole 40 mg tablet,delayed 40 mg PO DAILY ACID REFLUX 03/06/21 08/06/24 History release cholecalciferol (vitamin D3) 50 50 mcg PO DAILY supplement 08/08/23 08/05/24 History mcg (2,000 unit) capsule amlodipine 10 mg tablet 10 mg PO DAILY BLOOD PRESSURE #90 12/11/23 08/06/24 Rx tabs furosemide 40 mg tablet 40 mg PO DAILY CHF #90 tabs 04/22/24 08/06/24 Rx sildenafil (pulm.hypertension) 20 40 mg PO TID PULMONARY HTN 05/27/24 08/06/24 History mg tablet apixaban 2.5 mg tablet (Eliquis) 2.5 mg PO BID 6 weeks because of 07/22/24 08/06/24 History receiving a ascorbic acid (vitamin C) 500 mg 500 mg PO TID SUPPLEMENT 07/22/24 08/06/24 History capsule Allergy/AdvReac Type Severity Reaction Status Date / Time pravastatin AdvReac Severe severe Verified 07/26/24 09:50 muscle and joint pain ceftriaxone (From Rocephin) AdvReac Mild pancreatiti Verified 07/26/24 09:50 s Family History Mother , age 83 Uterine cancer Hypertension Father , age 81 Heart disease Diabetes CAD (coronary artery disease) Hypertension Surgical History 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) History of esophagogastroduodenoscopy (EGD) History of colonoscopy History of hysterectomy History of root canal procedure H/O aortic valve replacement (09/15/18) coil embolization of colonic artery History of left heart catheterization (LHC) (04/10/17) Status post right foot surgery History of hysterectomy History of appendectomy Social History household members: spouse housing: house Smoking Status: Never smoker alcohol intake: never substance use type: does not use caffeine: No what type of physical activity do you participate in: none divina/worship: M[employer]onite seatbelt use: always do you feel safe at home: Yes ROS <RADHA MultaniC - Last Filed: 08/06/24 15:56> ROS ED ROS Narrative Constitutional: Negative for weight loss, weakness. Positive fever and chills Eyes: Negative for vision loss, vision change, double vision ENT: Negative for any sore throat, ear pain, congestion Cardiovascular: Negative for any chest pain, tightness, palpitations Respiratory: Negative for any cough, sputum production, hemoptysis.positive for dyspnea, dyspnea on exertion, orthopnea Gastrointestinal: Negative for any abdominal pain, nausea, vomiting, diarrhea, constipation, blood in stool, blood in vomit : Negative for any urinary frequency, dysuria, retention, blood in urine Muscle skeletal: Negative for any neck pain, back pain Neurological: Negative for any headache, syncope. Positive for dizziness Skin: Negative for any rashes, itching, abrasions, lacerations Psychiatric: Negative for any depression, anxiety, stress, suicidal ideation, homicidal ideation Hematologic: Negative for any excessive bruising, easy bleeding EXAM <ROSALIND Multani - Last Filed: 08/06/24 15:56> Physical Exam Narrative Exam Narrative: Vital signs reviewed. Patient had tachycardia, febrile at 103 Fahrenheit, HEET: Head normocephalic atraumatic, TMs clear bilaterally. Posterior pharynx is clear, dry mucous membranes. Nares clear bilaterally. Neck: Supple with no lymphadenopathy or tenderness. No signs of meningismus. Cardiac: Tachycardic rate positive for systolic murmur, no gallops or rubs, equal peripheral pulses bilaterally. Respiratory: Rales to bilateral lower lobes. No chest tenderness. Abdomen: Soft, nontender, nondistended. No abdominal bruit or pulsatile masses. No hepatosplenomegaly Extremities: No peripheral edema, no signs of gross trauma or deformity. Active full range of motion of all extremities. Neuro: Cranial nerves II through XII intact, no focal neurological deficits. Skin: Clean dry and intact with no rash, purpura, petechiae, vesicles or pustules. Backs/flank: No CVA tenderness, no midline spinal tenderness, no deformity. Psych: Normal mood and affect. No SI, HI or acute psychosis. Const Vital Signs: 08/06/24 13:19 08/06/24 13:19 08/06/24 13:23 Temperature 103.2 F H 103.1 F H Temperature Source Oral Oral Pulse Rate 115 H 115 H Respiratory Rate 35 H 32 H Respiratory Effort Short of Breath Respiratory Depth Normal Respiratory Pattern Normal Blood Pressure 181/51 H 181/51 H Blood Pressure Mean 94 94 Pulse Ox 94 94 Oxygen Delivery Method Room Air Room Air Room Air Oxygen Flow Rate (L/min) 08/06/24 13:25 08/06/24 13:46 08/06/24 13:46 Temperature Temperature Source Pulse Rate 102 H Respiratory Rate 21 H Respiratory Effort Respiratory Depth Respiratory Pattern Tachypnea Blood Pressure Blood Pressure Mean Pulse Ox 97 Oxygen Delivery Method Nasal Cannula Nasal Cannula Oxygen Flow Rate (L/min) 2 2 08/06/24 14:23 08/06/24 14:25 08/06/24 14:30 Temperature 103 F H Temperature Source Core Pulse Rate 89 87 96 Respiratory Rate 23 H 23 H 18 Respiratory Effort Respiratory Depth Respiratory Pattern Blood Pressure 140/44 H 128/50 H Blood Pressure Mean 76 66 Pulse Ox 94 94 93 Oxygen Delivery Method Nasal Cannula Oxygen Flow Rate (L/min) 2 08/06/24 14:45 08/06/24 15:00 08/06/24 15:00 Temperature Temperature Source Pulse Rate 84 85 85 Respiratory Rate 21 H 25 H 25 H Respiratory Effort Respiratory Depth Respiratory Pattern Blood Pressure 119/46 L 118/42 L Blood Pressure Mean 67 63 Pulse Ox 93 94 94 Oxygen Delivery Method Oxygen Flow Rate (L/min) 08/06/24 15:15 08/06/24 15:30 08/06/24 15:45 Temperature Temperature Source Pulse Rate 85 73 Respiratory Rate 25 H 20 H Respiratory Effort Respiratory Depth Respiratory Pattern Blood Pressure 118/41 L 126/48 H 130/63 H Blood Pressure Mean 62 70 83 Pulse Ox 92 92 Oxygen Delivery Method Oxygen Flow Rate (L/min) 08/06/24 15:52 08/06/24 16:00 08/06/24 16:00 Temperature 101.5 F H Temperature Source Pulse Rate 85 76 77 Respiratory Rate 25 H 23 H 23 H Respiratory Effort Respiratory Depth Respiratory Pattern Blood Pressure 130/63 H 134/53 H Blood Pressure Mean 85 80 Pulse Ox 94 93 92 Oxygen Delivery Method Oxygen Flow Rate (L/min) <Dr. Hayde Ruvalcaba, DO - Last Filed: 08/06/24 16:23> Physical Exam Const Vital Signs: 08/06/24 13:19 08/06/24 13:19 08/06/24 13:23 Temperature 103.2 F H 103.1 F H Temperature Source Oral Oral Pulse Rate 115 H 115 H Respiratory Rate 35 H 32 H Respiratory Effort Short of Breath Respiratory Depth Normal Respiratory Pattern Normal Blood Pressure 181/51 H 181/51 H Blood Pressure Mean 94 94 Pulse Ox 94 94 Oxygen Delivery Method Room Air Room Air Room Air Oxygen Flow Rate (L/min) 08/06/24 13:25 08/06/24 13:46 08/06/24 13:46 Temperature Temperature Source Pulse Rate 102 H Respiratory Rate 21 H Respiratory Effort Respiratory Depth Respiratory Pattern Tachypnea Blood Pressure Blood Pressure Mean Pulse Ox 97 Oxygen Delivery Method Nasal Cannula Nasal Cannula Oxygen Flow Rate (L/min) 2 2 08/06/24 14:23 08/06/24 14:25 08/06/24 14:30 Temperature 103 F H Temperature Source Core Pulse Rate 89 87 96 Respiratory Rate 23 H 23 H 18 Respiratory Effort Respiratory Depth Respiratory Pattern Blood Pressure 140/44 H 128/50 H Blood Pressure Mean 76 66 Pulse Ox 94 94 93 Oxygen Delivery Method Nasal Cannula Oxygen Flow Rate (L/min) 2 08/06/24 14:45 08/06/24 15:00 08/06/24 15:00 Temperature Temperature Source Pulse Rate 84 85 85 Respiratory Rate 21 H 25 H 25 H Respiratory Effort Respiratory Depth Respiratory Pattern Blood Pressure 119/46 L 118/42 L Blood Pressure Mean 67 63 Pulse Ox 93 94 94 Oxygen Delivery Method Oxygen Flow Rate (L/min) 08/06/24 15:15 08/06/24 15:30 08/06/24 15:45 Temperature Temperature Source Pulse Rate 85 73 Respiratory Rate 25 H 20 H Respiratory Effort Respiratory Depth Respiratory Pattern Blood Pressure 118/41 L 126/48 H 130/63 H Blood Pressure Mean 62 70 83 Pulse Ox 92 92 Oxygen Delivery Method Oxygen Flow Rate (L/min) 08/06/24 15:52 08/06/24 16:00 08/06/24 16:00 Temperature 101.5 F H Temperature Source Pulse Rate 85 76 77 Respiratory Rate 25 H 23 H 23 H Respiratory Effort Respiratory Depth Respiratory Pattern Blood Pressure 130/63 H 134/53 H Blood Pressure Mean 85 80 Pulse Ox 94 93 92 Oxygen Delivery Method Oxygen Flow Rate (L/min) YONATHAN <ROSALIND Multani - Last Filed: 08/06/24 15:56> [facility] Lab Data Labs: Laboratory Results - last 24 hr 08/06/24 08/06/24 13:41 14:21 WBC 21.4 H RBC 3.11 L Hgb 9.4 L Hct 29.2 L MCV 93.9 MCH 30.2 MCHC 32.2 RDW Std Deviation 45.6 H RDW Coeff of Fariba 13.2 Plt Count 264 MPV 10.8 Immature Gran % (Auto) 0.800 Neut % (Auto) 94.4 H Lymph % (Auto) 1.8 L [place] % (Auto) 2.8 Eos % (Auto) 0.0 Baso % (Auto) 0.2 Absolute Neuts (auto) 20.2 H Absolute Lymphs (auto) 0.38 L Nucleated RBC % 0 Differential Comment SCANNED Platelet Estimate ADEQUATE RBC Morphology NORM C+C PT 20.2 H INR 1.7 APTT 40.6 H Sodium 134 L Potassium 4.2 Chloride 104 Carbon Dioxide 26.0 Anion Gap 4 L BUN 37 H Creatinine 1.78 H Estim Creat Clear Calc 32.42 Est GFR (MDRD) Af Amer 35 L Est GFR (MDRD) Non-Af 29 L BUN/Creatinine Ratio 20.8 H Glucose 144 H Lactic Acid 1.0 Calcium 9.0 Total Bilirubin 0.70 AST 18 ALT 14 Alkaline Phosphatase 103 B-Natriuretic Peptide 367.3 H Total Protein 7.4 Albumin 3.3 Globulin 4.1 Albumin/Globulin Ratio 0.8 L Urine Color Yellow Urine Clarity Clear Urine pH 6.0 Ur Specific [place] 1.010 Urine Protein 100 H Urine Glucose (UA) Normal Urine Ketones Negative Urine Occult Blood 10 H Urine Nitrite Negative Urine Bilirubin Negative Urine Urobilinogen Normal Ur Leukocyte Esterase Negative Urine RBC 0-5 SEEN Urine WBC 0 SEEN Ur Squamous Epith Cells 0 SEEN Urine Bacteria 0 SEEN Urine Mucus 0 SEEN Radiography Diagnostic Testing: Clinical Impression(s) from Imaging Studies Chest X-Ray 08/06/24 14:00 IMPRESSION: No radiographic evidence of acute cardiopulmonary disease. Electronically Signed: Parveen Price MD at 15:16 EST , EKG EKG shows atrial fibrillation: Attestation: I personally reviewed and interpreted this EKG as follows: Interpretation: Atrial Fibrillation Comments: Atrial fibrillation with a rate of 98 bpm, QRS duration 86 ms, no acute ST elevation, no acute infarct noted Treatment and Re-Evaluation :: Differential diagnosis includes however is not limited to: Sepsis, community-acquired pneumonia, COVID-19, influenza, RSV, CHF exacerbation Patient does appear septic, patient's tachycardic, febrile, tachypneic. Patient was immediately given 1 L normal saline, patient is given Tylenol, septic workup including 2 sets of blood cultures, lactic as well as other laboratory values. Chest x-ray will be ordered. All radiologic examinations were read, reviewed by the emergency department attending. From these reads, a plan of care will be put in place. Patient's laboratory values showed a leukocytosis with a white blood count of 21.4. Slight anemia at 9.4. Patient's APTT is 40.6 with a PT of 20.2, INR within normal limits. Chemistry shows slight renal sufficiency with a creatinine of 1.78 however patient seems to be baseline between 1.3-1.5. Glucose 144. Lactic acid was normal, BNP was 367.3. Patient will be given 2 L of normal saline IV bolus, however patient does have history of CHF so I do not believe the patient needs the full 30 mL/kg secondary as long as the patient's heart rate, blood pressure and other vital signs are stable. Patient will be started IV Zosyn. This is for broad-spectrum antibiotic. Patient likely need to be admitted to the hospital. Patient's urinalysis was negative. Patient's COVID-19 influenza RSV was negative. X-ray shows no radiographic evidence of acute cardiopulmonary disease. Patient's vital signs did improve. Patient was given 2 L normal saline. Third liter was not given secondary to history of CHF. At this time, there is no significant source to the infection. Patient will need to be admitted to the hospital. I will reach out to the hospitalist <Dr. Hayde Ruvalcaba, DO - Last Filed: 08/06/24 16:23> [facility] Narrative Medical decision making narrative: I have personally performed a face to face assessment of the patient and have reviewed the ALESSANDRO Note. I performed a substantive portion of the visit including all aspects of the following. My hernandez findings include: History is [patient presents with increasing shortness of breath since yesterday. Initially woke up yesterday and felt vertiginous. Had a low-grade fever yesterday. Today increasing shortness of breath. She has history of CHF and she says she is gained 6 to 8 pounds in the last week. She denies significant swelling to her lower extremities. She has had no significant cough. She denies abdominal pain. She has had no vomiting or diarrhea. Patient currently on apixaban for history of A-fib and prior Watchman procedure.] Patient recently treated for UTI with Cipro. Exam is [HEENT-PERRLA, EOMI. Cranial nerves II through XII grossly intact. TMs clear. Mucous membranes moist. No adenopathy. Cardiovascular-regular rate and rhythm without murmur or ectopy Lungs-clear to auscultation, chest wall stable without crepitus or subcu emphysema Abdomen-normoactive bowel sounds, soft, nontender, no rebound or rigidity, no peritoneal signs. Extremities-intact ?4, normal range of motion, normal pulses, atraumatic] no significant edema noted in the lower extremities. No rashes or cellulitic changes. Medical Decison Making [patient with fever and tachycardia and tachypnea. In the differential would be CHF versus infectious etiology such as pneumonia or viral upper respiratory infection. UTI also in the differential. IV line established. CBC with differential obtained showed a white count of 21.4 with hemoglobin 9.4 and platelet count of 264. Chemistries unremarkable. BUN 37 and creatinine 1.78. Lactate normal at 1.0. LFTs were normal. Urinalysis unremarkable. COVID flu and RSV testing was negative. 1 view chest x-ray unremarkable. This point etiology of her fever unclear although still need to rule out pneumonia given the elevated white count and dyspnea. We empirically started her on Zosyn. We obtained blood cultures on arrival and send a urine culture. BNP was 367. Initially started with small amounts of IV fluids given her history of CHF which was part of the differential for dyspnea. We did order a liter fluid bolus followed by second liter. Discussed case with hospitalist will evaluate patient for admission to the ICU to rule out sepsis.] Other additions or changes: [None] Lab Data Attestation: I reviewed the patient's lab results. Labs: Laboratory Results - last 24 hr 08/06/24 08/06/24 13:41 14:21 WBC 21.4 H RBC 3.11 L Hgb 9.4 L Hct 29.2 L MCV 93.9 MCH 30.2 MCHC 32.2 RDW Std Deviation 45.6 H RDW Coeff of Fariba 13.2 Plt Count 264 MPV 10.8 Immature Gran % (Auto) 0.800 Neut % (Auto) 94.4 H Lymph % (Auto) 1.8 L [place] % (Auto) 2.8 Eos % (Auto) 0.0 Baso % (Auto) 0.2 Absolute Neuts (auto) 20.2 H Absolute Lymphs (auto) 0.38 L Nucleated RBC % 0 Differential Comment SCANNED Platelet Estimate ADEQUATE RBC Morphology NORM C+C PT 20.2 H INR 1.7 APTT 40.6 H Sodium 134 L Potassium 4.2 Chloride 104 Carbon Dioxide 26.0 Anion Gap 4 L BUN 37 H Creatinine 1.78 H Estim Creat Clear Calc 32.42 Est GFR (MDRD) Af Amer 35 L Est GFR (MDRD) Non-Af 29 L BUN/Creatinine Ratio 20.8 H Glucose 144 H Lactic Acid 1.0 Calcium 9.0 Total Bilirubin 0.70 AST 18 ALT 14 Alkaline Phosphatase 103 B-Natriuretic Peptide 367.3 H Total Protein 7.4 Albumin 3.3 Globulin 4.1 Albumin/Globulin Ratio 0.8 L Urine Color Yellow Urine Clarity Clear Urine pH 6.0 Ur Specific [place] 1.010 Urine Protein 100 H Urine Glucose (UA) Normal Urine Ketones Negative Urine Occult Blood 10 H Urine Nitrite Negative Urine Bilirubin Negative Urine Urobilinogen Normal Ur Leukocyte Esterase Negative Urine RBC 0-5 SEEN Urine WBC 0 SEEN Ur Squamous Epith Cells 0 SEEN Urine Bacteria 0 SEEN Urine Mucus 0 SEEN Radiography Diagnostic Testing: Clinical Impression(s) from Imaging Studies Chest X-Ray 08/06/24 14:00 IMPRESSION: No radiographic evidence of acute cardiopulmonary disease. Electronically Signed: Parveen Price MD at 15:16 EST , Discharge Plan Dx/Rx/DC Orders Clinical Impression: Leukocytosis, Sepsis, Dyspnea, Fever, Acute dyspnea Disposition Disposition: Acute Care Hospital [facility]
--- NOTE | 2024-08-06 14:00 | RAD_ITS ---
INDICATION: cough EXAMINATION/TECHNIQUE: X-RAY - XR Chest 1 View COMPARISON: Prior study dated: 04/03/2024 FINDINGS: LINES/DEVICES: Right-sided Port-A-Cath in stable position. LUNGS: Prominent markings appear to be chronic. No new infiltrate is seen. No evidence of pleural effusions. MEDIASTINUM AND CARDIOVASCULAR STRUCTURES: Stable cardiomediastinal silhouette. Aortic stent is seen. BONES AND SOFT TISSUES: Unchanged. RAD/Chest 1 View (Portable) IMPRESSION: No radiographic evidence of acute cardiopulmonary disease. Electronically Signed: Parveen Price MD at 15:16 EST ,
[2024-08-06 14:05] LABS: International Normalized Ratio 1.7; Prothrombin Time (Protime)PT. 20.2 SECONDS (11.7-14.9)
[2024-08-06 14:06] LABS: Partial Thromboplast Time 40.6 Seconds (24.1-36.2)
[2024-08-06 14:11] LABS: ALB/GLOB Ratio 0.8 RATIO (0.9-2.4); AST(SGOT) 18 U/L (15-37); Alanine Aminotransfer ALT/SGPT 14 U/L (13-56); Albumin, Serum 3.3 g/dL (3.2-5.0); Alkaline Phosphatase 103 U/L (45-117); Anion Gap 4 (5-15); BUN 37 mg/dL (7-18); BUN/Creat Ratio 20.8 RATIO (10-20); Chloride 104 mmol/L (98-107); Creatinine, Serum 1.78 mg/dL (0.55-1.02); EST Glomerular Filtration Rate 29 mL/min (>60); Est Glom Filt Rate - Afr Amer 35 mL/min (>60); Estimated Creatinine Clearance 32.42 ml/min; Globulin 4.1 g/dL (2.2-4.2); Glucose 144 mg/dL (74-106); Potassium 4.2 mmol/L (3.5-5.1); Protein, Total 7.4 g/dL (6.4-8.2); Sodium Level 134 mmol/L (136-145)
[2024-08-06 14:17] LABS: BNP,B-Type NATRIURETIC PEPTIDE 367.3 pg/mL (0-100)
[2024-08-06] MEDS: Piperacil/Tazobactam 4.5 GM in 0.9% Normal Saline (100mL MB+) 100 ML IV (14:18)
[2024-08-06 14:28] LABS: Bacteria 0 SEEN /hpf (None Seen); Mucous, Urine 0 SEEN /hpf (<or=2+); Squamous Epithelial Cells - UA 0 SEEN /hpf (5-10); White Blood Cells 0 SEEN /hpf (0-5)
[2024-08-06 14:42] LABS: Differential Comment SCANNED; Platelet Estimate ADEQUATE (ADEQ); Red Cell Morphology NORM C+C NORMAL (NORM C&C)
[2024-08-06 15:26] LABS: Color, Urine Yellow (Yellow); Glucose, Dipstick Normal (Normal); Ketone-Dipstick Negative (Negative); Leukocyte Esterase-Dipstick Negative /ul (Negative); Nitrite-Dipstick Negative (Negative); Occult Blood-Urine 10 /ul (Negative); Protein-Dipstick 100 mg/dl (Negative); Urine Bilirubin Dipstick Negative (Negative); Urine Clarity Clear (Clear); Urine Urobilinogen Normal (Normal)
--- NOTE | 2024-08-06 15:30 | CM.ED ---
Social Work SW was able to verify that patient has both Living Will and HPOA on file at [facility]. Maida Singer, [facility] SPECIALIST, PRODUCT SAFETY MANAGER
[2024-08-06 15:45] LABS: Red Blood Cells-Urine 0-5 SEEN /hpf (0-5)
--- NOTE | 2024-08-06 16:26 | HP.PCM.HOS_ITS ---
HPI - General General Date of Admission: 08/06/24 Date of Service: 08/06/24 Chief Complaint: SOB, febrile HPI Narrative KAMI ROLLE, is a 79-year-old female history of A-fib, hypertension, CHF, CKD IIIb, GERD, pulmonary hypertension presented [facility] ED 08/06/2024 with fever, chills, shortness of breath. She recently finished Cipro for UTI but today became short of breath prompting her to come to the ED. Her shortness of breath and fever both started today, denies any sick contacts. In the ED patient febrile with a temperature of 103.2, tachycardic with a heart rate of 115 and tachypneic with respiratory rate of 35. She has found a white blood cell count of 21.4, INR of 1.7 and an LUIS ALBERTO with increased creatinine from baseline up to 1.78 (was 1.46 on 07/15/2024). There was concern patient was septic so she was given IV fluids (2 L instead of 3 given her congestive heart failure history) and broad-spectrum antibiotics and hospitalist contacted for admission. Patient evaluated at bedside with present. Patient reports that she had been feeling fair until yesterday when she began noticing fevers and she felt little bit dizzy and unsteady without completely resolved and is just been feeling tired and then today she woke up and was progressively more short of breath throughout the day. Denies any cough, no new wounds or cutaneous concerns for infection. No headache, no changes from her chronic back pain, no abdominal pain, no new urinary symptoms, no diarrhea. Patient does report feeling little bit better since she has been in the ED and was started on treatment [facility] Medical History (Updated 08/06/24 @ 15:55 by ROSALIND Multani) Acute blood loss anemia (09/24/20) Acute kidney injury Anemia Anemia in chronic kidney disease (CKD) Anemia of chronic renal failure, stage 3 (moderate) Arthritis Bloody stool Cardiology follow-up encounter Chronic diastolic (congestive) heart failure Chronic GI bleeding Chronic kidney disease (CKD) Chronic kidney disease, stage 3b COVID-19 CRBSI (catheter-related bloodstream infection) Diverticulitis Elevated troponin Essential (primary) hypertension Fatigue GERD (gastroesophageal reflux disease) Gout History of atrial fibrillation History of blood transfusion History of echocardiogram History of edema History of GI bleed History of pneumonia History of renal disease History of stress test History of ulceration Hyperkalemia Hyperlipidemia Iron deficiency anemia Iron deficiency anemia due to chronic blood loss Knee pain Liver disease 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 Longstanding persistent atrial fibrillation Loss of hearing Low iron Morbid obesity Morbid obesity with BMI of 40.0-44.9, adult Non-smoker Non-ST elevation (NSTEMI) myocardial infarction (12/09/16) Nonobstructive atherosclerosis of coronary artery Nonrheumatic aortic (valve) stenosis Nonrheumatic mitral (valve) insufficiency Nonrheumatic tricuspid (valve) insufficiency Obstructive sleep apnea Osteopenia Other secondary pulmonary hypertension Pleural effusion on left Pneumonia Presence of IVC filter (09/2018) Sepsis secondary to UTI Shortness of breath on exertion Syncope 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 Type 2 diabetes mellitus Urinary tract infection Walker as ambulation aid Wears glasses Wears hearing aid Home Medications ?Medication ?Instructions ?Recorded ?Last Taken ?Type magnesium 250 mg tablet 250 mg PO DAILY SUPPLEMENT 10/09/18 08/05/24 History ferrous sulfate 325 mg (65 mg 325 mg PO TID SUPPLEMENT 04/14/19 08/06/24 History iron) tablet (Melissa-Time) pantoprazole 40 mg tablet,delayed 40 mg PO DAILY ACID REFLUX 03/06/21 08/06/24 History release cholecalciferol (vitamin D3) 50 50 mcg PO DAILY supplement 08/08/23 08/05/24 History mcg (2,000 unit) capsule amlodipine 10 mg tablet 10 mg PO DAILY BLOOD PRESSURE #90 12/11/23 08/06/24 Rx tabs furosemide 40 mg tablet 40 mg PO DAILY CHF #90 tabs 04/22/24 08/06/24 Rx sildenafil (pulm.hypertension) 20 40 mg PO TID PULMONARY HTN 05/27/24 08/06/24 History mg tablet apixaban 2.5 mg tablet (Eliquis) 2.5 mg PO BID 6 weeks because of 07/22/24 08/06/24 History receiving a ascorbic acid (vitamin C) 500 mg 500 mg PO TID SUPPLEMENT 07/22/24 08/06/24 History capsule Allergy/AdvReac Type Severity Reaction Status Date / Time pravastatin AdvReac Severe severe Verified 07/26/24 09:50 muscle and joint pain ceftriaxone (From Rocephin) AdvReac Mild pancreatiti Verified 07/26/24 09:50 s Family History Mother , age 83 Uterine cancer Hypertension Father , age 81 Heart disease Diabetes CAD (coronary artery disease) Hypertension Surgical History coil embolization of colonic artery H/O aortic valve replacement (09/15/18) History of appendectomy History of colonoscopy History of esophagogastroduodenoscopy (EGD) History of hysterectomy History of hysterectomy History of left heart catheterization (LHC) (04/10/17) History of root canal procedure 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) Status post right foot surgery Social History household members: spouse housing: house Smoking Status: Never smoker alcohol intake: never substance use type: does not use caffeine: No what type of physical activity do you participate in: none divina/pentecostalism: Mennonite seatbelt use: always do you feel safe at home: Yes ROS ROS Narrative General: Fevers for 2 days HENT: Denies headache, denies stuffy nose, denies sore throat EYES: Denies changes in vision Resp: Denies cough, shortness of breath worsening over 1 day Cardiac: Denies chest pain GI: Denies abdominal pain, denies changes in bowel, denies nausea/vomiting : Denies changes in urination Extremity: Denies swelling MSK: Feels a little generally weak Neuro: Denies any numbness/tingling Heme: Little bit of bruising above her knees after she had fall a couple months ago Skin: Denies rashes Psychiatric: No complaints voiced Vital Signs Vital Signs Vital Signs: 08/06/24 13:19 08/06/24 13:19 08/06/24 13:23 Temperature 103.2 F H 103.1 F H Temperature Source Oral Oral Pulse Rate 115 H 115 H Respiratory Rate 35 H 32 H Respiratory Effort Short of Breath Respiratory Depth Normal Respiratory Pattern Normal Blood Pressure 181/51 H 181/51 H Blood Pressure Mean 94 94 Pulse Ox 94 94 Oxygen Delivery Method Room Air Room Air Room Air Oxygen Flow Rate (L/min) 08/06/24 13:25 08/06/24 13:46 08/06/24 13:46 Temperature Temperature Source Pulse Rate 102 H Respiratory Rate 21 H Respiratory Effort Respiratory Depth Respiratory Pattern Tachypnea Blood Pressure Blood Pressure Mean Pulse Ox 97 Oxygen Delivery Method Nasal Cannula Nasal Cannula Oxygen Flow Rate (L/min) 2 2 08/06/24 14:23 08/06/24 14:25 08/06/24 14:30 Temperature 103 F H Temperature Source Core Pulse Rate 89 87 96 Respiratory Rate 23 H 23 H 18 Respiratory Effort Respiratory Depth Respiratory Pattern Blood Pressure 140/44 H 128/50 H Blood Pressure Mean 76 66 Pulse Ox 94 94 93 Oxygen Delivery Method Nasal Cannula Oxygen Flow Rate (L/min) 2 08/06/24 14:45 08/06/24 15:00 08/06/24 15:00 Temperature Temperature Source Pulse Rate 84 85 85 Respiratory Rate 21 H 25 H 25 H Respiratory Effort Respiratory Depth Respiratory Pattern Blood Pressure 119/46 L 118/42 L Blood Pressure Mean 67 63 Pulse Ox 93 94 94 Oxygen Delivery Method Oxygen Flow Rate (L/min) 08/06/24 15:15 08/06/24 15:30 08/06/24 15:45 Temperature Temperature Source Pulse Rate 85 73 Respiratory Rate 25 H 20 H Respiratory Effort Respiratory Depth Respiratory Pattern Blood Pressure 118/41 L 126/48 H 130/63 H Blood Pressure Mean 62 70 83 Pulse Ox 92 92 Oxygen Delivery Method Oxygen Flow Rate (L/min) 08/06/24 15:52 08/06/24 16:00 08/06/24 16:00 Temperature 101.5 F H Temperature Source Pulse Rate 85 76 77 Respiratory Rate 25 H 23 H 23 H Respiratory Effort Respiratory Depth Respiratory Pattern Blood Pressure 130/63 H 134/53 H Blood Pressure Mean 85 80 Pulse Ox 94 93 92 Oxygen Delivery Method Oxygen Flow Rate (L/min) Weight Weight: 118.2 kg Body Mass Index (BMI) 41.8 Physical Exam Narrative General: Alert, oriented, no apparent distress HEENT: Atraumatic, normocephalic Eyes: Anicteric, normal conjunctiva, extraocular movements grossly intact Neck: Supple Respiratory: Crackles at right lung base, slight increased respiratory effort Cardiovascular: Irregularly irregular GI: Soft, nontender, nondistended Extremities: No significant pitting edema Musculoskeletal: Moving all extremities, no tenderness over spine Neuro: No overt focal neurological deficits Skin: No rashes appreciated, little bit of bruising above both knees left greater than right which is not new Psych: Cooperative Results Lab / Micro Data 08/06/24 13:41 08/06/24 13:41 Labs: Laboratory Results - last 24 hr 08/06/24 13:41: WBC 21.4 H, RBC 3.11 L, Hgb 9.4 L, Hct 29.2 L, MCV 93.9, MCH 30.2, MCHC 32.2, RDW Std Deviation 45.6 H, RDW Coeff of Fariba 13.2, Plt Count 264, MPV 10.8, Immature Gran % (Auto) 0.800, Neut % (Auto) 94.4 H, Lymph % (Auto) 1.8 L, [place] % (Auto) 2.8, Eos % (Auto) 0.0, Baso % (Auto) 0.2, Absolute Neuts (auto) 20.2 H, Absolute Lymphs (auto) 0.38 L, Nucleated RBC % 0, Differential Comment SCANNED, Platelet Estimate ADEQUATE, RBC Morphology NORM C+C, PT 20.2 H, INR 1.7, APTT 40.6 H, Sodium 134 L, Potassium 4.2, Chloride 104, Carbon Dioxide 26.0, Anion Gap 4 L, BUN 37 H, Creatinine 1.78 H, Estim Creat Clear Calc 32.42, Est GFR (MDRD) Af Amer 35 L, Est GFR (MDRD) Non-Af 29 L, BUN/Creatinine Ratio 20.8 H, Glucose 144 H, Lactic Acid 1.0, Calcium 9.0, Total Bilirubin 0.70, AST 18, ALT 14, Alkaline Phosphatase 103, B-Natriuretic Peptide 367.3 H, Total Protein 7.4, Albumin 3.3, Globulin 4.1, Albumin/Globulin Ratio 0.8 L 08/06/24 14:21: Urine Color Yellow, Urine Clarity Clear, Urine pH 6.0, Ur Specific [place] 1.010, Urine Protein 100 H, Urine Glucose (UA) Normal, Urine Ketones Negative, Urine Occult Blood 10 H, Urine Nitrite Negative, Urine Bilirubin Negative, Urine Urobilinogen Normal, Ur Leukocyte Esterase Negative, Urine RBC 0-5 SEEN, Urine WBC 0 SEEN, Ur Squamous Epith Cells 0 SEEN, Urine Bacteria 0 SEEN, Urine Mucus 0 SEEN Micro: Microbiology 08/06/24 13:48 Mucosa - Nose SARS-CoV-2, Influenza & RSV (PCR) - Final Imaging Radiology Impression Chest X-Ray 12/19/24 14:00 IMPRESSION: No radiographic evidence of acute cardiopulmonary disease. Electronically Signed: Parveen Price MD at 15:16 EST , Assessment & Plan Assessment/Plan (1) Fever: PLAN: Plan # Suspect sepsis but source unclear -patient febrile with a temperature of 103.2, tachycardic with a heart rate of 115 and tachypneic with respiratory rate of 35. She has found a white blood cell count of 21.4, INR of 1.7 and an LUIS ALBERTO with increased creatinine from baseline up to 1.78 (was 1.46 on 07/15/2024). -Chest x-ray no acute process -UA not overtly infectious -Urine culture, blood cultures, sputum culture if able -COVID negative, respiratory panel pending -IV fluids: Patient given 2 L IV fluids and not the full 30 cc/kg due to her heart failure -Continue broad-spectrum antibiotics, narrow as able -If respiratory panel negative may need CT chest abdomen and pelvis though at this time would need to forego contrast given her worsening kidney function so would likely be lower yield #Hx HFpEF and pulmonary HTN -BNP slightly up at 367, some crackles at right lung base, does not appear to be overtly volume overloaded -Daily weights, I?s and O?s -Hold Lasix today given fluids for presumed sepsis, will need to monitor volume status and resume once able -Continue home sildenafil # LUIS ALBERTO on CKD stage IIIb -Creatinine 1.78 with a baseline around 1.5 -Avoid nephrotoxic agents -IV fluids as above # History of atrial fibrillation -History of a watchman left atrial appendage closure device 07/01/2024, she supposed to follow-up for routine MANA add onto previous labs if possible New Year's Omaira for monitoring -On Eliquis for 6 weeks, presently still on Eliquis #AARTI -Continue home NIPPV if applicable #Hx DVT -Status post IVC filter 2018 # History of aortic valve replacement -09/13/2018, noted #GERD -Continue PPI #Hypertension -Continue amlodipine as patient hypertensive #Morbid obesity -BMI documented as 41.9 kg/m? at time of admission -Complicates treatment, prognosis, outcomes -Recommend weight loss and lifestyle changes #DVT ppx: Patient on Breaquis Vannessa Justin MD Charges/Coding Visit Charges Inpatient E&M: 13193 Init Hosp L2
--- NOTE | 2024-08-06 17:27 | CM.ED ---
Care Management Face to Face with patient for initial transition planning/care coordination assessment.? This specification writer introduced self and role at [facility]. Patient lying in bed, alert and oriented. Patient willing to participate in assessment and is able to answer all questions appropriately.? Patients at bedside and permission given for participation in assessment. Care providers, pharmacy, and demographics verified. Admitting Diagnosis: shortness of breath Other diagnosis history: ?CKD, chronic kidney disease, afib, hypertension PCP: ?Dr. Santana Specialists: ?Fadumo Raymundo, Leslie Robertson Preferred Pharmacy: [facility] Insurance: Medicare Prescription Benefit:? yes Living Will/HPOA: ?Has both HPOA and Living Will, on file with [facility] [place]: Living Arrangements: Lives with in one story home, has a basement with laundry but does laundry. Patient able to complete all ADLs, meals, cleaning and med management. DME: Shower bench, detachable shower hose, grab bars tub and shower, cane, walker, wheelchair, bedside commode HHC:? used [facility] in the past SNF/Rehab: ?Short term stay at [facility] Resources: None Behavioral Health History:? None Patient goals: Patient wishes to discharge home. Patient states she has no further needs or concerns at this time. Disposition Plan: CM to follow for discharge planning needs that may arise. Maida Singer, NATURAL RESOURCE ECONOMIST, CLAY SHOP SUPERVISOR
[2024-08-06] MEDS: Vancomycin HCl 2,000 MG in 0.9% Normal Saline (500mL Bag) 500 ML 250 MG IV (17:55)
--- NOTE | 2024-08-06 18:08 | PCM.RX.CS ---
Consult Antibiotic Management Pharmacy has been consulted to manage selected antibiotic: Vancomycin Type of Intervention Type of Consult: New start Suspected Infection Suspected Infection: Sepsis Prior Doses of Antibiotics Prior Doses of Antibiotics Received/Current Regimen: Vancomycin 2000 mg IV x 1 given 08/06/24 @ 1755, patient is also on piperacillin/tazobactam 3.375 grams Q8H. Labs Labs: Sodium 134 mmol/L (136-145) L 08/06/24 13:41 Potassium 4.2 mmol/L (3.5-5.1) 08/06/24 13:41 Chloride 104 mmol/L (98-107) 08/06/24 13:41 Carbon Dioxide 26.0 mmol/L (21.0-32.0) 08/06/24 13:41 Anion Gap 4 (5-15) L 08/06/24 13:41 BUN 37 mg/dL (7-18) H 08/06/24 13:41 Creatinine 1.78 mg/dL (0.55-1.02) H 08/06/24 13:41 Est GFR (MDRD) Af Amer 35 mL/min (>60) L 08/06/24 13:41 Est GFR (MDRD) Non-Af 29 mL/min (>60) L 08/06/24 13:41 BUN/Creatinine Ratio 20.8 RATIO (10-20) H 08/06/24 13:41 Glucose 144 mg/dL (74-106) H 08/06/24 13:41 Microbiology Microbiology: Microbiology 08/06/24 13:48 Mucosa - Nose SARS-CoV-2, Influenza & RSV (PCR) - Final Dosing Weight Weight used for dosin kg Estimated Creatinine Clearance Estimated Creatinine Clearance: ~ 32 Goal Trough Goal Trough: 15-20 mcg/mL Pharmacy Plan for Drug Dosing Pharmacy Plan for Drug Dosing: Vancomycin 2000 mg IV x 1 followed by 1500 mg Q24H. Pharmacy Service will continue to monitor and adjust dosing as required. Follow-Up Labs Follow-Up Labs: Trough: Vancomycin Date/Time Labs Ordered Labs to be done on [date and time ordered]: 08/08/24 @1731
[2024-08-06] MEDS: Piperacil/Tazobactam 3.375 GM in 0.9% Normal Saline (50mL MB+) 50 ML IV (21:11)
[2024-08-06] MEDS: SILDENAFIL CITRATE 20 MG TABLET 40 MG PO (21:11)
[2024-08-06] MEDS: Senna/Docusate Sodium 1 Tablet 2 TABLET PO (21:11)
[2024-08-06] MEDS: APIXABAN 2.5 MG TABLET (WCH) PO (21:12)
[2024-08-07] VITALS (21 sets, daily range): BP systolic 99–135; BP diastolic 42–66; PULSE 21–66; RESP 12–24; TEMP 35.8–37.7; O2SAT 92–99; BMI 41.8
--- NOTE | 2024-08-07 00:50 | EKG12_ITS ---
Test Reason : Blood Pressure : */* mmHG Vent. Rate : 61 BPM Atrial Rate : 55 BPM P-R Int : * ms QRS Dur : 84 ms QT Int : 482 ms P-R-T Axes : * 68 68 degrees QTcB Int : 485 ms Junctional rhythm Prolonged QT Abnormal ECG Confirmed by HARPAL BALDWIN, AMY ([id number]), editor city RENATA CORTES ([id number]) on 08/07/2024 11:01:55 AM Referred By: Nhan Confirmed By: AMY ROWAN MD
[2024-08-07] MEDS: Piperacil/Tazobactam 3.375 GM in 0.9% Normal Saline (50mL MB+) 50 ML IV ×3 (06:10→20:57)
[2024-08-07 06:26] LABS: Absolute Lymphocyte Count 0.62 X10^3/uL (0.83-4.51); Absolute Neutrophil Count 9.4 X10^3/uL (2.0-7.7); Basophil# 0.04 X10^3/uL; Basophil% 0.4 % (0-1); Eosinophil# 0.05 X10^3/uL; Eosinophils% 0.5 % (0-5); Hematocrit 24.7 % (37-47); Hemoglobin 7.9 g/dL (12.0-15.0); Lymphocyte # 0.62 X10^3/ul (0.83-4.51); Lymphocyte % 5.8 % (19-41); Mean Corpuscular Hgb 30.4 pg (27.0-32.0); Mean Platelet Vol. 10.9 fl (6.2-12.0); Monocyte# 0.51 X10^3/uL; Monocyte% 4.8 % (0-10); NRBC Flagged by Analyzer 0 % (0-5); Neutrophil # 9.42 X10^3/uL (2.7-7.7); Platelet Count 177 K/mm3 (150-450); RBC Distribution Width CV 13.2 % (11.6-14.6); RBC Distribution Width SD 46.5 fl (35.1-43.9); White Blood Count 10.7 K/mm3 (4.4-11.0)
[2024-08-07 07:07] LABS: Anion Gap 5 (5-15); BUN 37 mg/dL (7-18); BUN/Creat Ratio 23.4 RATIO (10-20); Calcium,Total 8.3 mg/dL (8.5-10.1); Chloride 109 mmol/L (98-107); Creatinine, Serum 1.58 mg/dL (0.55-1.02); EST Glomerular Filtration Rate 33 mL/min (>60); Est Glom Filt Rate - Afr Amer 40 mL/min (>60); Estimated Creatinine Clearance 36.42 ml/min; Glucose 111 mg/dL (74-106); Potassium 3.8 mmol/L (3.5-5.1); Sodium Level 139 mmol/L (136-145)
[2024-08-07] MEDS: Ferrous Sulfate 325 MG Tablet PO ×3 (09:21→17:15)
[2024-08-07] MEDS: Magnesium Chloride 64 MG Delay Rel.Tablet PO (09:21)
[2024-08-07] MEDS: APIXABAN 2.5 MG TABLET (WCH) PO ×2 (09:21→20:56)
[2024-08-07] MEDS: Pantoprazole Sodium 40 MG Tablet PO (09:22)
[2024-08-07] MEDS: Senna/Docusate Sodium 1 Tablet 2 TABLET PO ×2 (09:22→20:57)
[2024-08-07] MEDS: CHLORHEXIDINE GLUC 2% CLOTH 1 EACH TOWELETTE TOPICAL (10:20)
--- NOTE | 2024-08-07 10:27 | CASEMGMT ---
Addendum entered by Anshul Singh 08/07/24 11:20: Zuhair from [employer] reports that the pt current home oxygen order states 2 LPM CONT, 3 LPM W/ EXERTION. LELE BEGUM to pt room. Pt states that this is what she used to wear but has since returned the portable equipment and only uses additional oxygen at night through her CPAP. Pt states that she follow with Dr. Nelson (Qa Test Analyst). [facility] staff to follow in the case that the pt requires portability and/or updated Rx at time of DC. Green sheet placed on chart. Original Note: LELE BEGUM to pt room at this time to discuss DC planning. Pt at bedside. Pt states that she is independent and currently denies the need for HHC, OP Tx, or CCN. Pt states that she has had HH in the past and had a good experience, but does not feel as if she needs it now. Pt agrees. However, PT and OT are ordered and evaluations are pending. Will follow. Pt also reports that she has home oxygen through [employer]. Pt states that she only wears this at night through her CPAP. E-Mail sent to Zuhair @ [employer] to verify current Rx. [facility] staff to follow for increase in oxygen demands at time of DC. Pt states that she does not have any portability at home. This RN SHY will fill out green sheet once current Rx is verified to help facilitate potential weekend DC.
[2024-08-07] MEDS: SILDENAFIL CITRATE 20 MG TABLET 40 MG PO ×2 (13:22→20:56)
--- NOTE | 2024-08-07 14:33 | CHAPLAIN ---
Type of Pastoral Visit _x__ Initial Visit ___ Follow-up Visit ___ On-call Visit ___ General Patient Visit ___ Spiritual Assessment ___ Family Conference ___ Bereavement ___ Rapid Response ___ Code Blue ___ Other (describe below) Pastoral Care Referral From _x__ Patient ___ Family ___ Nurse ___ Physician ___ Acrobatic Dancer ___ Development Lead ___ Other (describe below) Sacrament/Intervention _x__ Active listening ___ Anointing ___ Caodaism ___ Bereavement ___ Communion ___ Brynn exploration ___ ___ Life review _x__ Prayer ___ Reconciliation ___ Sacrament of Sick _x__ Supportive presence ___ Wedding ___ Other (describe below) Pastoral Comments response is similar as to the previous meetings with this patient and her ; both are welcoming, pleasant, and desiring of prayer support
--- NOTE | 2024-08-07 15:13 | PN_ITS ---
Subjective Subjective Patient seen and examined. She said she felt much better and had no complaints. She had an uneventful night. Review of systems is otherwise negative. She does have a slight fever this morning of 99.7F. Objective Data Objective Data Vital Signs: Vital Signs Temp Pulse Resp BP Pulse Ox O2 Del Method O2 Flow Rate 99.7 F H 59 L 21 H 125/48 H 98 CPAP 2 08/07/24 15:00 08/07/24 15:00 08/07/24 15:00 08/07/24 15:00 08/07/24 15:00 08/07/24 15:00 08/07/24 13:55 Oxygen Flow Rate (L/min) 2 Oxygen Delivery Method CPAP Weight: 259 lb 4.218 oz Body Mass Index (BMI) 41.8 Intake & Output: Intake and Output for Last 24 Hours 08/05/24 08/06/24 08/07/24 23:59 23:59 23:59 Intake Total 2640 / 2640 850 / 850 Output Total 300 / 300 825 / 825 Balance 2340 / 2340 25 / 25 Lab / Micro Data 08/07/24 05:50 08/07/24 05:50 Labs: Laboratory Results - last 24 hr 08/06/24 14:21: Urine Color Yellow, Urine Clarity Clear, Urine pH 6.0, Ur Specific [place] 1.010, Urine Protein 100 H, Urine Glucose (UA) Normal, Urine Ketones Negative, Urine Occult Blood 10 H, Urine Nitrite Negative, Urine Bilirubin Negative, Urine Urobilinogen Normal, Ur Leukocyte Esterase Negative, Urine RBC 0-5 SEEN, Urine WBC 0 SEEN, Ur Squamous Epith Cells 0 SEEN, Urine Bacteria 0 SEEN, Urine Mucus 0 SEEN 08/07/24 05:50: WBC 10.7, RBC 2.60 L, Hgb 7.9 L, Hct 24.7 L, MCV 95.0, MCH 30.4, MCHC 32.0, RDW Std Deviation 46.5 H, RDW Coeff of Fariba 13.2, Plt Count 177, MPV 10.9, Immature Gran % (Auto) 0.500, Neut % (Auto) 88.0 H, Lymph % (Auto) 5.8 L, [place] % (Auto) 4.8, Eos % (Auto) 0.5, Baso % (Auto) 0.4, Absolute Neuts (auto) 9.4 H, Absolute Lymphs (auto) 0.62 L, Nucleated RBC % 0, Sodium 139, Potassium 3.8, Chloride 109 H, Carbon Dioxide 25.0, Anion Gap 5, BUN 37 H, Creatinine 1.58 H, Estim Creat Clear Calc 36.42, Est GFR (MDRD) Af Amer 40 L, Est GFR (MDRD) Non-Af 33 L, BUN/Creatinine Ratio 23.4 H, Glucose 111 H, Calcium 8.3 L Micro: Microbiology 08/06/24 13:41 Blood Culture (Wb) - Other Blood Culture - Preliminary 08/06/24 14:15 Blood Culture (Wb) - Anticubital Right Blood Culture - Preliminary 08/06/24 15:55 Mucosa - Nose Respiratory Panel (PCR) - Final 08/06/24 17:40 Urine Catheter - Catheter Legionella Antigen - Final 08/06/24 17:40 Urine Catheter - Catheter Streptococcus pneumoniae Antigen (M - Final 08/06/24 13:48 Mucosa - Nose SARS-CoV-2, Influenza & RSV (PCR) - Final Radiography Diagnostic Testing: Radiology Impression Chest X-Ray 08/06/24 14:00 IMPRESSION: No radiographic evidence of acute cardiopulmonary disease. Electronically Signed: Parveen Price MD at 15:16 EST , Physical Exam Const alert, oriented x3 and no apparent distress General Appearance: cooperative and well developed HEENT normocephalic, head/scalp atraumatic and moist oral mucous membranes Eyes PERRL and EOMs intact bilaterally Neck no lymphadenopathy and supple Lymph Lymphatic: no lymphadenopathy noted and no lymphedema noted Resp Resp Narrative: mildly diminished breath sounds bibasally, no wheezes or crackles. On oxygen by nasal canula Cardio regular rate, regular rhythm, S1 normal heart sound, S2 normal heart sound and no murmurs GI normal to inspection, nondistended, normoactive bowel sounds, soft to palpation, non-tender and non-distended Extremity normal capillary refill, no clubbing, cyanosis or edema and no calf tenderness General Extremity: no tenderness to palpation of joints or extremities Skin General Skin Exam: no breakdown Neuro CN's II-XII intact bilaterally, no focal motor deficits and no sensory deficits noted Motor Exam: strength 5/5 throughout and general weakness Psych thought process normal and cooperative Appearance: appropriate Assessment & Plan Assessment/Plan (1) Fever: (2) Dyspnea: (3) Sepsis: PLAN: Plan #SIRS criteria with unclear source of infection * Patient feeling much better. Her tachypnea is resolving as well as the tachycardia. She does have a mild fever today. WBC is trending downwards. Chest x-ray showed no acute cardiopulmonary pathology. Urinalysis showed no evidence of UTI. Urine and blood cultures pending. COVID-negative. * Continue gentle hydration with IV fluids. On IV vancomycin and Zosyn. * #History of heart failure preserved ejection fraction * BNP was slightly up at 367. Lasix held on admission due to concerns for sepsis. Will resume Lasix. * #Pulmonary hypertension: On sildenafil. Patient is having some bradycardia which is likely due to the sildenafil.Will monitor #Anemia: Hemoglobin is 7.9. He does appear to have chronic anemia with his baseline being between 8-10. Will monitor. # CKD stage IIIb: Creatinine is around his baseline. Will monitor. #History of afib * Status post Watchman procedure on 07/01/2024. * On Eliquis. * #AARTI: On CPAP nightly #History of aortic valve replacement: This occurred in 2019. Stable #History of DVT: On Eliquis. Also s/p IVC filter in 2019. #GERD: On PPI #Hypertension: on amlodipine #Obesity: BMI is 41.9. Complicates acute care, expected recovery and prognosis. DVT prophylaxis: already on eliquis Disposition: Transfer to PCU * Charges/Coding Visit Charges Inpatient E&M: 16141 Subs Hosp L2
[2024-08-07] MEDS: 0.9% Saline Lock 10 ML Syringe IV (18:17)
[2024-08-07] MEDS: Vancomycin HCl 1,500 MG in 0.9% Normal Saline (500mL Bag) 500 ML 250 MG IV (18:17)
[2024-08-08] VITALS (13 sets, daily range): BP systolic 105–162; BP diastolic 37–64; PULSE 49–73; RESP 15–20; TEMP 36.7–37.6; O2SAT 93–98; BMI 41.7
[2024-08-08 03:08] LABS: Absolute Lymphocyte Count 0.63 X10^3/uL (0.83-4.51); Absolute Neutrophil Count 7.8 X10^3/uL (2.0-7.7); Basophil# 0.03 X10^3/uL; Basophil% 0.3 % (0-1); Eosinophil# 0.11 X10^3/uL; Eosinophils% 1.2 % (0-5); Hematocrit 24.2 % (37-47); Hemoglobin 7.7 g/dL (12.0-15.0); Lymphocyte # 0.63 X10^3/ul (0.83-4.51); Lymphocyte % 6.9 % (19-41); Mean Corp Hgb Conc 31.8 g/dL (32-36); Mean Corpuscular Hgb 30.2 pg (27.0-32.0); Mean Corpuscular Volume 94.9 fL (81-99); Mean Platelet Vol. 11.3 fl (6.2-12.0); Monocyte# 0.51 X10^3/uL; Monocyte% 5.6 % (0-10); NRBC Flagged by Analyzer 0 % (0-5); Neutrophil # 7.76 X10^3/uL (2.7-7.7); Neutrophil % 85.7 % (47-70); Platelet Count 181 K/mm3 (150-450); RBC Distribution Width CV 13.2 % (11.6-14.6); RBC Distribution Width SD 46.4 fl (35.1-43.9); Red Blood Count 2.55 M/mm3 (4.2-5.4); White Blood Count 9.1 K/mm3 (4.4-11.0)
[2024-08-08 03:29] LABS: Anion Gap 6 (5-15); BUN 32 mg/dL (7-18); BUN/Creat Ratio 21.6 RATIO (10-20); Calcium,Total 8.1 mg/dL (8.5-10.1); Chloride 112 mmol/L (98-107); Creatinine, Serum 1.48 mg/dL (0.55-1.02); EST Glomerular Filtration Rate 36 mL/min (>60); Est Glom Filt Rate - Afr Amer 44 mL/min (>60); Estimated Creatinine Clearance 38.88 ml/min; Glucose 104 mg/dL (74-106); Potassium 3.8 mmol/L (3.5-5.1); Sodium Level 140 mmol/L (136-145)
[2024-08-08] MEDS: SILDENAFIL CITRATE 20 MG TABLET 40 MG PO ×3 (05:00→20:41)
[2024-08-08] MEDS: Piperacil/Tazobactam 3.375 GM in 0.9% Normal Saline (50mL MB+) 50 ML IV ×3 (05:00→21:35)
[2024-08-08 07:51] LABS: Ferritin 557 ng/mL (8-252); Iron 30 ug/dL (50-170); Iron Binding Capacity,Total 234 ug/dL (250-450); PERCENT IRON SATURATION 12.8 % (15.0-55.0)
[2024-08-08] MEDS: Ferrous Sulfate 325 MG Tablet PO ×3 (08:56→17:46)
[2024-08-08] MEDS: Pantoprazole Sodium 40 MG Tablet PO (08:56)
[2024-08-08] MEDS: Magnesium Chloride 64 MG Delay Rel.Tablet PO (08:56)
[2024-08-08] MEDS: APIXABAN 2.5 MG TABLET (WCH) PO (08:57)
--- NOTE | 2024-08-08 11:23 | PN_ITS ---
Objective Data Objective Data Vital Signs: Vital Signs Temp Pulse Resp BP Pulse Ox O2 Del Method O2 Flow Rate 99.3 F H 59 L 18 132/42 H 93 Room Air 2 08/08/24 08:55 08/08/24 09:00 08/08/24 08:55 08/08/24 08:55 08/08/24 08:55 08/08/24 09:00 08/08/24 03:00 FiO2 93 08/08/24 09:00 Oxygen Flow Rate (L/min) 2 Oxygen Delivery Method Room Air Weight: 259 lb 11.272 oz Body Mass Index (BMI) 41.7 Intake & Output: Intake and Output for Last 24 Hours 08/06/24 08/07/24 08/08/24 23:59 23:59 23:59 Intake Total 2640 / 2640 1430 / 1680 350 / 350 Output Total 300 / 300 1175 / 1450 650 / 650 Balance 2340 / 2340 255 / 230 -300 / -300 Lab / Micro Data 08/08/24 02:56 08/08/24 02:56 Labs: Laboratory Results - last 24 hr 08/08/24 02:56: WBC 9.1, RBC 2.55 L, Hgb 7.7 L, Hct 24.2 L, MCV 94.9, MCH 30.2, MCHC 31.8 L, RDW Std Deviation 46.4 H, RDW Coeff of Fariba 13.2, Plt Count 181, MPV 11.3, Immature Gran % (Auto) 0.300, Neut % (Auto) 85.7 H, Lymph % (Auto) 6.9 L, Holt % (Auto) 5.6, Eos % (Auto) 1.2, Baso % (Auto) 0.3, Absolute Neuts (auto) 7.8 H, Absolute Lymphs (auto) 0.63 L, Nucleated RBC % 0, Sodium 140, Potassium 3.8, Chloride 112 H, Carbon Dioxide 23.0, Anion Gap 6, BUN 32 H, Creatinine 1.48 H, Estim Creat Clear Calc 38.88, Est GFR (MDRD) Af Amer 44 L, Est GFR (MDRD) Non-Af 36 L, BUN/Creatinine Ratio 21.6 H, Glucose 104, Calcium 8.1 L, Iron 30 L, TIBC 234 L, Iron Saturation 12.8 L, Ferritin 557 H Micro: Microbiology 08/08/24 08:25 Stool Stool Occult Blood (LAHSAUN) - Final Occult Blood Positive 08/06/24 14:15 Blood Culture (Wb) - Anticubital Right Blood Culture - Preliminary Coag Negative Staph 08/06/24 13:41 Blood Culture (Wb) - Other Bacteria Detection (PCR) - Final Staphylococcus epidermidis 08/06/24 13:41 Blood Culture (Wb) - Other Blood Culture - Preliminary Staphylococcus epidermidis 08/06/24 15:55 Mucosa - Nose Respiratory Panel (PCR) - Final 08/06/24 17:40 Urine Catheter - Catheter Legionella Antigen - Final 08/06/24 17:40 Urine Catheter - Catheter Streptococcus pneumoniae Antigen (M - Final 08/06/24 13:48 Mucosa - Nose SARS-CoV-2, Influenza & RSV (PCR) - Final Physical Exam Const alert, oriented x3 and no apparent distress General Appearance: cooperative and well developed HEENT normocephalic, head/scalp atraumatic and moist oral mucous membranes Eyes PERRL and EOMs intact bilaterally Neck no lymphadenopathy and supple Lymph Lymphatic: no lymphadenopathy noted and no lymphedema noted Resp Resp Narrative: mildly diminished breath sounds bibasally, no wheezes or crackles. On oxygen by nasal canula Cardio regular rate, regular rhythm, S1 normal heart sound, S2 normal heart sound and no murmurs GI normal to inspection, nondistended, normoactive bowel sounds, soft to palpation, non-tender and non-distended Extremity normal capillary refill, no clubbing, cyanosis or edema and no calf tenderness General Extremity: no tenderness to palpation of joints or extremities Skin General Skin Exam: no breakdown Neuro CN's II-XII intact bilaterally, no focal motor deficits and no sensory deficits noted Motor Exam: strength 5/5 throughout and general weakness Psych thought process normal and cooperative Appearance: appropriate Assessment & Plan Assessment/Plan (1) Fever: (2) Dyspnea: (3) Sepsis: PLAN: Plan #SIRS criteria with unclear source of infection * Patient feeling much better. tachypnea Her tachypnea is resolving as well as the tachycardia. She does have a mild fever today. WBC is trending downwards. Chest x-ray showed no acute cardiopulmonary pathology. Urinalysis showed no evidence of UTI. Urine and blood cultures pending. COVID-negative. * Continue gentle hydration with IV fluids. On IV vancomycin and Zosyn. * #History of heart failure preserved ejection fraction * BNP was slightly up at 367. Lasix held on admission due to concerns for sepsis. Will resume Lasix. * #Pulmonary hypertension: On sildenafil. Patient is having some bradycardia which is likely due to the sildenafil.Will monitor #Anemia: Hemoglobin is 7.9. He does appear to have chronic anemia with his baseline being between 8-10. Will monitor. # CKD stage IIIb: Creatinine is around his baseline. Will monitor. #History of afib * Status post Watchman procedure on 07/01/2024. * On Eliquis. * #AARTI: On CPAP nightly #History of aortic valve replacement: This occurred in 2019. Stable #History of DVT: On Eliquis. Also s/p IVC filter in 2019. #GERD: On PPI #Hypertension: on amlodipine #Obesity: BMI is 41.9. Complicates acute care, expected recovery and prognosis. DVT prophylaxis: already on eliquis Disposition: Transfer to PCU *
--- NOTE | 2024-08-08 11:50 | CASEMGMT ---
Noted No therapy recommended on evals for PT and OT.
--- NOTE | 2024-08-08 18:51 | PHA.PHARE_ITS ---
Consult Antibiotic Management Pharmacy has been consulted to manage selected antibiotic: Vancomycin Type of Intervention Type of Consult: Follow-up Suspected Infection Suspected Infection: Sepsis Prior Doses of Antibiotics Prior Doses of Antibiotics Received/Current Regimen: Vancomycin 1500 mg Q24H last given 08/07/24 @ 1817 Labs Labs: Sodium 140 mmol/L (136-145) 08/08/24 02:56 Potassium 3.8 mmol/L (3.5-5.1) 08/08/24 02:56 Chloride 112 mmol/L (98-107) H 08/08/24 02:56 Carbon Dioxide 23.0 mmol/L (21.0-32.0) 08/08/24 02:56 Anion Gap 6 (5-15) 08/08/24 02:56 BUN 32 mg/dL (7-18) H 08/08/24 02:56 Creatinine 1.48 mg/dL (0.55-1.02) H 08/08/24 02:56 Est GFR (MDRD) Af Amer 44 mL/min (>60) L 08/08/24 02:56 Est GFR (MDRD) Non-Af 36 mL/min (>60) L 08/08/24 02:56 BUN/Creatinine Ratio 21.6 RATIO (10-20) H 08/08/24 02:56 Glucose 104 mg/dL (74-106) 08/08/24 02:56 Vancomycin Trough 24.0 ug/mL (5.0-15.0) H 08/08/24 17:43 Microbiology Microbiology: Microbiology 08/06/24 14:21 Urine, Catheterized Urine Culture - Preliminary Mixed Gram Positive Organisms 08/08/24 08:25 Stool Stool Occult Blood (LASHAUN) - Final Occult Blood Positive 08/06/24 14:15 Blood Culture (Wb) - Anticubital Right Blood Culture - P reliminary Coag Negative Staph 08/06/24 13:41 Blood Culture (Wb) - Other Bacteria Detection (PCR) - Final Staphylococcus epidermidis 08/06/24 13:41 Blood Culture (Wb) - Other Blood Culture - Preliminary Staphylococcus epidermidis 08/06/24 15:55 Mucosa - Nose Respiratory Panel (PCR) - Final 08/06/24 17:40 Urine Catheter - Catheter Legionella Antigen - Final 08/06/24 17:40 Urine Catheter - Catheter Streptococcus pneumoniae Antigen (M - Final 08/06/24 13:48 Mucosa - Nose SARS-CoV-2, Influenza & RSV (PCR) - Final Dosing Weight Weight used for dosin kg Estimated Creatinine Clearance Estimated Creatinine Clearance: ~ 39 Goal Trough Goal Trough: 15-20 mcg/mL Pharmacy Plan for Drug Dosing Pharmacy Plan for Drug Dosing: Vancomycin trough = 24.0, hold until random tomorrow morning Pharmacy Service will continue to monitor and adjust dosing as required. Follow-Up Labs Follow-Up Labs: Trough: Vancomycin Date/Time Labs Ordered Labs to be done on [date and time ordered]: 08/09/24 @ 0600
[2024-08-08] MEDS: 0.9% Saline Lock 10 ML Syringe IV (20:40)
[2024-08-08] MEDS: Pantoprazole Sodium 40 MG in 0.9% Normal Saline (100mL MB+) 100 ML 330 MG IV (20:41)
[2024-08-09 02:00] VITALS: BP 129/46; PULSE 76; RESP 14; TEMP 37.1; O2SAT 100
[2024-08-09 03:00] VITALS: PULSE 55
[2024-08-09 04:59] VITALS: BMI 43.1
[2024-08-09] MEDS: Piperacil/Tazobactam 3.375 GM in 0.9% Normal Saline (50mL MB+) 50 ML IV ×3 (05:32→21:43)
[2024-08-09] MEDS: SILDENAFIL CITRATE 20 MG TABLET 40 MG PO ×3 (05:33→21:43)
[2024-08-09 06:10] LABS: Absolute Lymphocyte Count 0.61 X10^3/uL (0.83-4.51); Absolute Neutrophil Count 6.8 X10^3/uL (2.0-7.7); Basophil# 0.04 X10^3/uL; Basophil% 0.5 % (0-1); Eosinophil# 0.06 X10^3/uL; Eosinophils% 0.8 % (0-5); Hematocrit 24.2 % (37-47); Hemoglobin 7.8 g/dL (12.0-15.0); Lymphocyte # 0.61 X10^3/ul (0.83-4.51); Lymphocyte % 7.7 % (19-41); Mean Corp Hgb Conc 32.2 g/dL (32-36); Mean Corpuscular Hgb 30.4 pg (27.0-32.0); Mean Corpuscular Volume 94.2 fL (81-99); Mean Platelet Vol. 10.5 fl (6.2-12.0); Monocyte# 0.42 X10^3/uL; Monocyte% 5.3 % (0-10); NRBC Flagged by Analyzer 0 % (0-5); Neutrophil # 6.77 X10^3/uL (2.7-7.7); Neutrophil % 85.2 % (47-70); Platelet Count 169 K/mm3 (150-450); RBC Distribution Width CV 13.2 % (11.6-14.6); RBC Distribution Width SD 45.4 fl (35.1-43.9); Red Blood Count 2.57 M/mm3 (4.2-5.4); White Blood Count 7.9 K/mm3 (4.4-11.0)
[2024-08-09 06:51] LABS: Anion Gap 9 (5-15); BUN 27 mg/dL (7-18); BUN/Creat Ratio 19.1 RATIO (10-20); Calcium,Total 8.6 mg/dL (8.5-10.1); Chloride 109 mmol/L (98-107); Creatinine, Serum 1.41 mg/dL (0.55-1.02); EST Glomerular Filtration Rate 38 mL/min (>60); Est Glom Filt Rate - Afr Amer 46 mL/min (>60); Estimated Creatinine Clearance 41.62 ml/min; Glucose 107 mg/dL (74-106); Potassium 3.9 mmol/L (3.5-5.1); Sodium Level 140 mmol/L (136-145)
[2024-08-09 06:55] LABS: Vancomycin, Random Level 21.4 ug/mL (0.0-15.0)
--- NOTE | 2024-08-09 07:07 | PCM.RX.CS ---
Consult Antibiotic Management Pharmacy has been consulted to manage selected antibiotic: Vancomycin Type of Intervention Type of Consult: Follow-up Suspected Infection Suspected Infection: Sepsis Prior Doses of Antibiotics Prior Doses of Antibiotics Received/Current Regimen: Vancomycin 1500 mg Q24H last dose given 08-07 @ 1817 Labs Labs: Sodium 140 mmol/L (136-145) 08/09/24 06:04 Potassium 3.9 mmol/L (3.5-5.1) 08/09/24 06:04 Chloride 109 mmol/L (98-107) H 08/09/24 06:04 Carbon Dioxide 22.0 mmol/L (21.0-32.0) 08/09/24 06:04 Anion Gap 9 (5-15) 08/09/24 06:04 BUN 27 mg/dL (7-18) H 08/09/24 06:04 Creatinine 1.41 mg/dL (0.55-1.02) H 08/09/24 06:04 Est GFR (MDRD) Af Amer 46 mL/min (>60) L 08/09/24 06:04 Est GFR (MDRD) Non-Af 38 mL/min (>60) L 08/09/24 06:04 BUN/Creatinine Ratio 19.1 RATIO (10-20) 08/09/24 06:04 Glucose 107 mg/dL (74-106) H 08/09/24 06:04 Vancomycin Trough 24.0 ug/mL (5.0-15.0) H 08/08/24 17:43 Random Vancomycin 21.4 ug/mL (0.0-15.0) H 08/09/24 06:04 Microbiology Microbiology: Microbiology 08/06/24 14:21 Urine, Catheterized Urine Culture - Preliminary Mixed Gram Positive Organisms 08/08/24 08:25 Stool Stool Occult Blood (LASHAUN) - Final Occult Blood Positive 08/06/24 14:15 Blood Culture (Wb) - Anticubital Right Blood Culture - Preliminary Coag Negative Staph 08/06/24 13:41 Blood Culture (Wb) - Other Bacteria Detection (PCR) - Final Staphylococcus epidermidis 08/06/24 13:41 Blood Culture (Wb) - Other Blood Culture - Preliminary Staphylococcus epidermidis 08/06/24 15:55 Mucosa - Nose Respiratory Panel (PCR) - Final 08/06/24 17:40 Urine Catheter - Catheter Legionella Antigen - Final 08/06/24 17:40 Urine Catheter - Catheter Streptococcus pneumoniae Antigen (M - Final 08/06/24 13:48 Mucosa - Nose SARS-CoV-2, Influenza & RSV (PCR) - Final Dosing Weight Weight used for dosin kg Estimated Creatinine Clearance Estimated Creatinine Clearance: ~ 42 Goal Trough Goal Trough: 15-20 mcg/mL Pharmacy Plan for Drug Dosing Pharmacy Plan for Drug Dosing: Vancomycin random = 21.4, continue to hold, random in 12 hours. Pharmacy Service will continue to monitor and adjust dosing as required. Follow-Up Labs Follow-Up Labs: Trough: Vancomycin Date/Time Labs Ordered Labs to be done on [date and time ordered]: 08/09/24 @ 1800
[2024-08-09 09:01] VITALS: BP 149/63; PULSE 77; RESP 16; TEMP 36.8; O2SAT 92
[2024-08-09] MEDS: Magnesium Chloride 64 MG Delay Rel.Tablet PO (09:04)
[2024-08-09] MEDS: Ferrous Sulfate 325 MG Tablet PO ×3 (09:04→17:00)
[2024-08-09] MEDS: Senna/Docusate Sodium 1 Tablet 2 TABLET PO ×2 (09:04→21:40)
[2024-08-09] MEDS: Pantoprazole Sodium 40 MG in 0.9% Normal Saline (100mL MB+) 100 ML 330 MG IV ×2 (10:44→21:41)
--- NOTE | 2024-08-09 11:34 | PN_ITS ---
Subjective Subjective Patient seen and examined. She had no active complaints. Review of systems otherwise negative. She is awaiting GI evaluation. Hemoglobin today is 7.8. Objective Data Objective Data Vital Signs: Vital Signs Temp Pulse Resp BP Pulse Ox O2 Del Method O2 Flow Rate 98.2 F 77 16 149/63 H 92 Room Air 4 08/09/24 09:01 08/09/24 09:01 08/09/24 09:01 08/09/24 09:01 08/09/24 09:01 08/09/24 09:01 08/09/24 02:13 FiO2 93 08/08/24 09:00 Oxygen Flow Rate (L/min) 4 Oxygen Delivery Method Room Air Weight: 268 lb 4.841 oz Body Mass Index (BMI) 43.1 Intake & Output: Intake and Output for Last 24 Hours 08/07/24 08/08/24 08/09/24 23:59 23:59 23:59 Intake Total 1430 / 1680 1230 / 1230 160 / 160 Output Total 1175 / 1450 1225 / 1225 325 / 325 Balance 255 / 230 5 / 5 -165 / -165 Lab / Micro Data 08/09/24 06:04 08/09/24 06:04 Labs: Laboratory Results - last 24 hr 08/08/24 17:43: Vancomycin Trough 24.0 H 08/09/24 06:04: WBC 7.9, RBC 2.57 L, Hgb 7.8 L, Hct 24.2 L, MCV 94.2, MCH 30.4, MCHC 32.2, RDW Std Deviation 45.4 H, RDW Coeff of Fariba 13.2, Plt Count 169, MPV 10.5, Immature Gran % (Auto) 0.500, Neut % (Auto) 85.2 H, Lymph % (Auto) 7.7 L, [place] % (Auto) 5.3, Eos % (Auto) 0.8, Baso % (Auto) 0.5, Absolute Neuts (auto) 6.8, Absolute Lymphs (auto) 0.61 L, Nucleated RBC % 0, Sodium 140, Potassium 3.9, Chloride 109 H, Carbon Dioxide 22.0, Anion Gap 9, BUN 27 H, Creatinine 1.41 H, Estim Creat Clear Calc 41.62, Est GFR (MDRD) Af Amer 46 L, Est GFR (MDRD) Non-Af 38 L, BUN/Creatinine Ratio 19.1, Glucose 107 H, Calcium 8.6, Random Vancomycin 21.4 H Micro: Microbiology 08/06/24 14:21 Urine, Catheterized Urine Culture - Preliminary Mixed Gram Positive Organisms 08/06/24 14:15 Blood Culture (Wb) - Anticubital Right Blood Culture - Preliminary Coag Negative Staph 08/06/24 13:41 Blood Culture (Wb) - Other Bacteria Detection (PCR) - Final Staphylococcus epidermidis 08/06/24 13:41 Blood Culture (Wb) - Other Blood Culture - Preliminary Staphylococcus epidermidis 08/08/24 08:25 Stool Stool Occult Blood (LASHAUN) - Final Occult Blood Positive 08/06/24 15:55 Mucosa - Nose Respiratory Panel (PCR) - Final 08/06/24 17:40 Urine Catheter - Catheter Legionella Antigen - Final 08/06/24 17:40 Urine Catheter - Catheter Streptococcus pneumoniae Antigen (M - Final 08/06/24 13:48 Mucosa - Nose SARS-CoV-2, Influenza & RSV (PCR) - Final Physical Exam Const alert, oriented x3 and no apparent distress General Appearance: cooperative and well developed HEENT normocephalic, head/scalp atraumatic and moist oral mucous membranes Eyes PERRL and EOMs intact bilaterally Neck no lymphadenopathy and supple Lymph Lymphatic: no lymphadenopathy noted and no lymphedema noted Resp normal respiratory effort, normal air movement and clear to auscultation bilaterally Cardio regular rate, regular rhythm, S1 normal heart sound, S2 normal heart sound and no murmurs GI normal to inspection, nondistended, normoactive bowel sounds, soft to palpation, non-tender and non-distended Extremity normal capillary refill, no clubbing, cyanosis or edema and no calf tenderness General Extremity: no tenderness to palpation of joints or extremities Skin General Skin Exam: no breakdown Neuro CN's II-XII intact bilaterally, no focal motor deficits and no sensory deficits noted Motor Exam: strength 5/5 throughout and general weakness Psych thought process normal and cooperative Appearance: appropriate Assessment & Plan Assessment/Plan (1) Fever: (2) Dyspnea: (3) Sepsis: PLAN: Plan #Staph epidermidis bacteremia * Patient feeling much better. WBC is trending downwards. Chest x-ray showed no acute cardiopulmonary pathology. * Urinalysis showed no evidence of UTI. * Urine culture growing mixed gram-positive organisms. Blood culture results however growing Staph epidermidis in 2 out of 2 samples * Leukocytosis has resolved. * Discontinue Zosyn and continue with IV vancomycin for now. * #History of heart failure preserved ejection fraction * BNP was slightly up at 367. * on lasix. * #Pulmonary hypertension: On sildenafil. Patient is having some bradycardia which is likely due to the sildenafil.Will monitor #Anemia: Hemoglobin is 7.8. He does appear to have chronic anemia with his baseline being between 8-10. Will monitor. # CKD stage IIIb: Creatinine is around his baseline. Will monitor. #History of afib * Status post Watchman procedure on 07/01/2024. * On Eliquis. * #AARTI: On CPAP nightly #History of aortic valve replacement: This occurred in 2019. Stable #History of DVT: On Eliquis. Also s/p IVC filter in 2019. #GERD: On PPI #Hypertension: on amlodipine #Obesity: BMI is 41.9. Complicates acute care, expected recovery and prognosis. DVT prophylaxis: already on eliquis Charges/Coding Visit Charges Inpatient E&M: 78343 Subs Hosp L2
[2024-08-09 13:34] VITALS: BP 164/58; PULSE 67; RESP 16; TEMP 36.6; O2SAT 94
[2024-08-09 16:58] VITALS: BP 162/68; PULSE 63; RESP 16; TEMP 36.6; O2SAT 94
[2024-08-09] MEDS: amLODIPine 10 MG Tablet PO (17:50)
[2024-08-09 18:24] LABS: Vancomycin, Trough Level 20.5 ug/mL (5.0-15.0)
--- NOTE | 2024-08-09 18:29 | PCM.RX.CS ---
Consult Antibiotic Management Pharmacy has been consulted to manage selected antibiotic: Vancomycin Type of Intervention Type of Consult: Follow-up Suspected Infection Suspected Infection: Sepsis Prior Doses of Antibiotics Prior Doses of Antibiotics Received/Current Regimen: Vancomycin 1500 mg IV given 08/07/24 @ 1817 Labs Labs: Sodium 140 mmol/L (136-145) 08/09/24 06:04 Potassium 3.9 mmol/L (3.5-5.1) 08/09/24 06:04 Chloride 109 mmol/L (98-107) H 08/09/24 06:04 Carbon Dioxide 22.0 mmol/L (21.0-32.0) 08/09/24 06:04 Anion Gap 9 (5-15) 08/09/24 06:04 BUN 27 mg/dL (7-18) H 08/09/24 06:04 Creatinine 1.41 mg/dL (0.55-1.02) H 08/09/24 06:04 Est GFR (MDRD) Af Amer 46 mL/min (>60) L 08/09/24 06:04 Est GFR (MDRD) Non-Af 38 mL/min (>60) L 08/09/24 06:04 BUN/Creatinine Ratio 19.1 RATIO (10-20) 08/09/24 06:04 Glucose 107 mg/dL (74-106) H 08/09/24 06:04 Vancomycin Trough 20.5 ug/mL (5.0-15.0) H 08/09/24 18:00 Random Vancomycin 21.4 ug/mL (0.0-15.0) H 08/09/24 06:04 Microbiology Microbiology: Microbiology 08/06/24 14:21 Urine, Catheterized Urine Culture - Preliminary Mixed Gram Positive Organisms 08/06/24 14:15 Blood Culture (Wb) - Anticubital Right Blood Culture - Preliminary Coag Negative Staph 08/06/24 13:41 Blood Culture (Wb) - Other Bacteria Detection (PCR) - Final Staphylococcus epidermidis 08/06/24 13:41 Blood Culture (Wb) - Other Blood Culture - Preliminary Staphylococcus epidermidis 08/08/24 08:25 Stool Stool Occult Blood (LASHAUN) - Final Occult Blood Positive 08/06/24 15:55 Mucosa - Nose Respiratory Panel (PCR) - Final 08/06/24 17:40 Urine Catheter - Catheter Legionella Antigen - Final 08/06/24 17:40 Urine Catheter - Catheter Streptococcus pneumoniae Antigen (M - Final 08/06/24 13:48 Mucosa - Nose SARS-CoV-2, Influenza & RSV (PCR) - Final Dosing Weight Weight used for dosin kg Estimated Creatinine Clearance Estimated Creatinine Clearance: ~ 42 Goal Trough Goal Trough: 15-20 mcg/mL Pharmacy Plan for Drug Dosing Pharmacy Plan for Drug Dosing: Vancomycin random = 20.5, only down 0.9 points from 12 hours ago. Random in 24 hours, patient does not appear to be exhibiting any meaningful clearance of vancomycin over the last 12 hours. Pharmacy Service will continue to monitor and adjust dosing as required. Follow-Up Labs Follow-Up Labs: Trough: Vancomycin Date/Time Labs Ordered Labs to be done on [date and time ordered]: 08/10/24 @ 1800
[2024-08-09 21:40] VITALS: BP 141/87; PULSE 70; RESP 18; TEMP 37.1; O2SAT 92
[2024-08-10] VITALS (15 sets, daily range): BP systolic 140–182; BP diastolic 52–78; PULSE 68–97; RESP 16–29; TEMP 36.3–37.3; O2SAT 90–97; BMI 44.1
--- NOTE | 2024-08-10 04:36 | NURSING ---
Removed washburn catheter at 0435, as there was no order for it.
[2024-08-10] MEDS: Piperacil/Tazobactam 3.375 GM in 0.9% Normal Saline (50mL MB+) 50 ML IV (05:35)
[2024-08-10 06:15] LABS: Absolute Lymphocyte Count 0.61 X10^3/uL (0.83-4.51); Absolute Neutrophil Count 6.4 X10^3/uL (2.0-7.7); Basophil# 0.03 X10^3/uL; Basophil% 0.4 % (0-1); Eosinophil# 0.07 X10^3/uL; Eosinophils% 0.9 % (0-5); Hematocrit 24.7 % (37-47); Hemoglobin 7.8 g/dL (12.0-15.0); Lymphocyte # 0.61 X10^3/ul (0.83-4.51); Lymphocyte % 8.2 % (19-41); Mean Corp Hgb Conc 31.6 g/dL (32-36); Mean Corpuscular Hgb 29.8 pg (27.0-32.0); Mean Corpuscular Volume 94.3 fL (81-99); Mean Platelet Vol. 11.8 fl (6.2-12.0); Monocyte# 0.35 X10^3/uL; Monocyte% 4.7 % (0-10); NRBC Flagged by Analyzer 0 % (0-5); Neutrophil # 6.39 X10^3/uL (2.7-7.7); Neutrophil % 85.4 % (47-70); Platelet Count 173 K/mm3 (150-450); RBC Distribution Width CV 13.2 % (11.6-14.6); RBC Distribution Width SD 45.7 fl (35.1-43.9); Red Blood Count 2.62 M/mm3 (4.2-5.4); White Blood Count 7.5 K/mm3 (4.4-11.0)
[2024-08-10 06:27] LABS: Partial Thromboplast Time 37.7 Seconds (24.1-36.2)
[2024-08-10 06:40] LABS: Anion Gap 4 (5-15); BUN 23 mg/dL (7-18); BUN/Creat Ratio 18.1 RATIO (10-20); Calcium,Total 8.7 mg/dL (8.5-10.1); Chloride 112 mmol/L (98-107); Creatinine, Serum 1.27 mg/dL (0.55-1.02); EST Glomerular Filtration Rate 43 mL/min (>60); Est Glom Filt Rate - Afr Amer 52 mL/min (>60); Estimated Creatinine Clearance 46.89 ml/min; Glucose 107 mg/dL (74-106); Sodium Level 139 mmol/L (136-145)
[2024-08-10 06:52] LABS: AST(SGOT) 9 U/L (15-37); Alanine Aminotransfer ALT/SGPT 8 U/L (13-56); Albumin, Serum 2.5 g/dL (3.2-5.0); Alkaline Phosphatase 77 U/L (45-117); Bilirubin, Direct 0.18 mg/dL (0.00-0.30); Globulin 4.1 g/dL (2.2-4.2); Protein, Total 6.6 g/dL (6.4-8.2)
--- NOTE | 2024-08-10 08:15 | PN.HOSP_ITS ---
Reason for Visit Reason for Visit: Diagnoses Sepsis, unspecified organism (08/06/24) Dyspnea, unspecified (08/06/24) Fever, unspecified (08/06/24) Objective Data Objective Data Vital Signs: Vital Signs Temp Pulse Resp BP Pulse Ox O2 Del Method O2 Flow Rate 97.3 F L 68 16 153/68 H 96 CPAP 4 08/10/24 04:25 08/10/24 04:25 08/10/24 04:25 08/10/24 04:25 08/10/24 04:25 08/10/24 08:09 08/10/24 04:25 FiO2 93 08/08/24 09:00 Oxygen Flow Rate (L/min) 4 Oxygen Delivery Method CPAP Weight: 275 lb 2.19 oz Body Mass Index (BMI) 44.1 Intake & Output: Intake and Output for Last 24 Hours 08/08/24 08/09/24 08/10/24 23:59 23:59 23:59 Intake Total 1230 / 1230 730 / 730 50 / 50 Output Total 1225 / 1225 925 / 1325 600 / 600 Balance 5 / 5 -195 / -595 -550 / -550 Lab / Micro Data 08/10/24 05:41 08/10/24 05:41 Labs: Laboratory Results - last 24 hr 08/09/24 18:00: Vancomycin Trough 20.5 H 08/10/24 05:41: WBC 7.5, RBC 2.62 L, Hgb 7.8 L, Hct 24.7 L, MCV 94.3, MCH 29.8, MCHC 31.6 L, RDW Std Deviation 45.7 H, RDW Coeff of Fariba 13.2, Plt Count 173, MPV 11.8, Immature Gran % (Auto) 0.400, Neut % (Auto) 85.4 H, Lymph % (Auto) 8.2 L, [place] % (Auto) 4.7, Eos % (Auto) 0.9, Baso % (Auto) 0.4, Absolute Neuts (auto) 6.4, Absolute Lymphs (auto) 0.61 L, Nucleated RBC % 0, APTT 37.7 H, Sodium 139, Potassium 4.0, Chloride 112 H, Carbon Dioxide 23.0, Anion Gap 4 L, BUN 23 H, C reatinine 1.27 H, Estim Creat Clear Calc 46.89, Est GFR (MDRD) Af Amer 52 L, Est GFR (MDRD) Non-Af 43 L, BUN/Creatinine Ratio 18.1, Glucose 107 H, Calcium 8.7, Total Bilirubin 0.70, Direct Bilirubin 0.18, AST 9 L, ALT 8 L, Alkaline Phosphatase 77, Total Protein 6.6, Albumin 2.5 L, Globulin 4.1 Micro: Microbiology 08/06/24 14:21 Urine, Catheterized Urine Culture - Preliminary Mixed Gram Positive Organisms 08/06/24 14:15 Blood Culture (Wb) - Anticubital Right Blood Culture - Preliminary Coag Negative Staph 08/06/24 13:41 Blood Culture (Wb) - Other Bacteria Detection (PCR) - Final Staphylococcus epidermidis 08/06/24 13:41 Blood Culture (Wb) - Other Blood Culture - Preliminary Staphylococcus epidermidis 08/08/24 08:25 Stool Stool Occult Blood (LASHAUN) - Final Occult Blood Positive 08/06/24 15:55 Mucosa - Nose Respiratory Panel (PCR) - Final 08/06/24 17:40 Urine Catheter - Catheter Legionella Antigen - Final 08/06/24 17:40 Urine Catheter - Catheter Streptococcus pneumoniae Antigen (M - Final 08/06/24 13:48 Mucosa - Nose SARS-CoV-2, Influenza & RSV (PCR) - Final Physical Exam Narrative Seen and examined. Patient has been sitting near the bedside. Admitted with shortness of breath and fever. Now feeling better. Plan for EGD. MRSA on blood culture. Afebrile for last 2 to 3 days Physical exam General: Alert, Oriented x3, Cooperative HEENT: Atraumatic, PERRLA, EOMI, Normocephalic Oral: No Gingival or Mucosal Lesions/ Ulcerations Neck: Supple, No JVD, Negative Carotid Bruits Chest wall/Lungs: Air entry diminished in bilateral lung bases. No crepitation/rhonchi Cardiovascular: Regular rate, Regular Rhythm, Normal S1, Normal S2, No M/G/R Abdomen: Bowel Sounds Present, Soft, Non Tender, Non-Distended : No dysuria. No renal angle tenderness. No suprapubic tenderness. Extremities: No edema, Capillary Refill Less than 3 Seconds Skin: No rashes, No breakdown Musculoskeletal: No Tenderness to Palpation of Joints or Extremities Neurological: Cranial nerves II-XII grossly intact, DTR 2+/4. No acute focal neurological deficit. Psych/Mental Status: Normal Affect, Appropriate. Assessment & Plan Assessment/Plan (1) Fever: (2) Dyspnea: (3) Sepsis: PLAN: Plan #Staph epidermidis bacteremia * Patient feeling much better. WBC is trending downwards. Chest x-ray showed no acute cardiopulmonary pathology. * Urinalysis showed no evidence of UTI. * Urine culture growing mixed gram-positive organisms. Blood culture results however growing Staph epidermidis in 2 out of 2 samples * Leukocytosis has resolved. 08/10 * Zosyn was discontinued. IV vancomycin continued for now. With history of fever and shortness of breath, MSSE bacteremia is consulted and cannot dismiss as contaminant. ID consultation requested for further opinion. * Discontinue Zosyn and continue with IV vancomycin for now. * ID consult reviewed and appreciated. MSSE probably due to port related infection. History of TAVR and Watchman device. 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 The blood culture was repeated from port. TTE reported bioprosthetic AV valve otherwise normal mitral, tricuspid and pulmonic valve, mean AV gradient 14. Normal tricuspid valve, 2+ TR, PASP 69 mmHg. 1-2++ MR. MANA ordered. Vancomycin continued #History of heart failure preserved ejection fraction * BNP was slightly up at 367. * on lasix. * #Pulmonary hypertension: On sildenafil. Patient is having some bradycardia which is likely due to the sildenafil.Will monitor # Chronic inflammatory anemia or anemia of CKD Hemoglobin is 7.8. He does appear to have chronic anemia with his baseline being between 8-10. 08/10: H&H 7.8/25%. Similar to yesterday. Iron profile shows ferritin high, serum iron low. On ferrous sulfate 3 times daily which is discontinued. IV iron one-time ordered. # CKD stage IIIb: Creatinine is around his baseline. 08/10: BUNs/creatinine /1.27 better than yesterday. #History of afib * Status post Watchman procedure on 07/01/2024. * On Eliquis. * #AARTI: On CPAP nightly #History of aortic valve replacemen in 2019. 2D echo as mentioned above #History of DVT: On Eliquis. Also s/p IVC filter in 2019. #GERD: On PPI #Hypertension: on amlodipine #Obesity: BMI is 41.9. Complicates acute care, expected recovery and prognosis. DVT prophylaxis: already on eliquis Charges/Coding Visit Charges Inpatient E&M: 34110 Subs Hosp L2
--- NOTE | 2024-08-10 08:40 | ECHOD_ITS ---
Reason For Study: Murmur, Bacteremia Left Ventricle Normal LV size. Left ventricular systolic function is normal. The left ventricular ejection fraction is 55 %. No regional wall motion abnormalities noted. Right Ventricle Normal RV size. Normal systolic function. Atria The left atrium is severely enlarged. The right atrium is severely enlarged. Mitral Valve Normal mitral valve. Mild-Moderate (1-2+) eccentric mitral valve insufficiency. Tricuspid Valve Normal tricuspid valve. Moderate (2+) tricuspid valve insufficiency. Pulmonary artery systolic pressure is 69 mmHg. Aortic Valve Peak aortic valve gradient 26 mmHg. Mean aortic valve gradient 14 mmHg. Bioprosthetic aortic valve. Pulmonic Valve Normal pulmonic valve. Great Vessels Normal aortic root. The pulmonary artery is normal size. The inferior vena cava is dilated. and does not collapse. Pericardium/Pleural Trivial pericardial effusion. MMode/2D Measurements & Calculations LVIDd: 5.5 cm IVSd: 1.4 cm LVOT diam: 2.0 cm LVIDs: 3.2 cm LVPWd: 1.2 cm LVOT area: 3.2 cm2 RVDd: 3.9 cm FS: 41.8 % LA dimension: 6.7 cm LAV(MOD-bp): 158.1 ml LVAd ap4: 32.0 cm2 LAV(MOD-bp) Indexed: 69.0 ml/m2 LVLd ap4: 7.6 cm LAV(MOD-sp2): 125.4 ml EDV(MOD-sp4): 112.6 ml LAV(MOD-sp4): 188.6 ml EDV(sp4-el): 114.5 ml LVAs ap4: 17.5 cm2 LVLs ap4: 6.5 cm ESV(MOD-sp4): 38.3 ml ESV(sp4-el): 39.6 ml EF(MOD-sp4): 66.0 % EF(sp4-el): 65.4 % SV(MOD-sp4): 74.3 ml SV(sp4-el): 74.9 ml LA A4 area: 43.1 cm2 SI(MOD-sp4): 32.4 ml/m2 RA A4 area: 34.0 cm2 Doppler Measurements & Calculations MV E max pavel: 165.8 cm/sec MV V2 max: 195.4 cm/sec Ao V2 max: 255.0 cm/sec MV max P.3 mmHg Ao max P.2 mmHg MV V2 mean: 78.7 cm/sec Ao V2 mean: 172.5 cm/sec MV mean P.7 mmHg Ao mean P.5 mmHg MV V2 VTI: 40.0 cm Ao V2 VTI: 58.7 cm AV (velocity ratio): 0.70 MVA(VTI): 3.2 cm2 ALONSO(I,D): 2.2 cm2 ALONSO(V,D): 2.1 cm2 LV V1 max: 170.9 cm/sec MR max pavel: 576.7 cm/sec SV(LVOT): 129.8 ml LV V1 max P.8 mmHg MR max P.1 mmHg LV V1 mean P.6 mmHg MR mean pavel: 456.9 cm/sec LV V1 mean: 119.6 cm/sec MR mean P.9 mmHg LV V1 VTI: 41.0 cm MR VTI: 198.3 cm PA V2 max: 130.0 cm/sec TR max pavel: 384.3 cm/sec TR max P.1 mmHg ECHO/Echo Complete Interpretation Summary Normal LV size. Left ventricular systolic function is normal. The left ventricular ejection fraction is 55 %. Pulmonary artery systolic pressure is 69 mmHg. Severe biatrial enlargement. Moderate to severe pulmonary hypertension Bioprosthetic aortic valve. Mean aortic valve gradient 14 mmHg. Ordering Physician: Carlos Peacock Performed By: Dany Triplett RCS
[2024-08-10] MEDS: Pantoprazole Sodium 40 MG in 0.9% Normal Saline (100mL MB+) 100 ML 330 MG IV ×2 (11:58→23:46)
--- NOTE | 2024-08-10 13:25 | CON.PCM.ID_ITS ---
Assessment & Plan Assessment/Plan (1) Bacteremia due to coagulase-negative Staphylococcus: PLAN: Port-related infection. H/o TAVR and watchman device. 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 TTE done this AM, will repeat bcx from port and order MANA. Cont vanc for now. Will follow, thank you HPI Consult Data Date of Consult: 08/10/24 HPI Narrative Reason for Consultation: bacteremia HPI Narrative: KAMI ROLLE, is a 79 F with h/o afib, TAVR in 2018, R chest port, and watchman device placement 06/2024 at [place]. Recent course of cipro for uti. Presented to ED 08/06 with one day of fever, not feeling well, dyspnea. No abd pain, no dysuria, no issues with port. Admitted on zosyn, vanc added. Now bcx x2 with MSSE. Feeling better, fever resolved. Full ROS performed and neg except as noted above. [facility] Medical History Kidney disease Pancreatitis GI bleed CPAP (continuous positive airway pressure) dependence Pulmonary hypertension Atrial fibrillation Congestive heart failure (CHF) Myocardial infarct Urinary tract infection CRBSI (catheter-related bloodstream infection) Morbid obesity with BMI of 40.0-44.9, adult Elevated troponin Wears hearing aid Loss of hearing Wears glasses Gout Walker as ambulation aid Low iron Syncope History of ulceration GERD (gastroesophageal reflux disease) Shortness of breath on exertion Non-smoker Chronic kidney disease (CKD) History of renal disease History of edema History of stress test Cardiology follow-up encounter History of echocardiogram History of atrial fibrillation Pneumonia COVID-19 Obstructive sleep apnea Chronic kidney disease, stage 3b Pleural effusion on left 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 Anemia of chronic renal failure, stage 3 (moderate) Nonobstructive atherosclerosis of coronary artery Longstanding persistent atrial fibrillation Acute blood loss anemia (09/24/20) Iron deficiency anemia due to chronic blood loss Chronic GI bleeding Chronic diastolic (congestive) heart failure Type 2 diabetes mellitus Essential (primary) hypertension Presence of IVC filter (09/2018) Anemia in chronic kidney disease (CKD) Acute kidney injury Bloody stool Knee pain Anemia Arthritis Hyperkalemia Non-ST elevation (NSTEMI) myocardial infarction (12/09/16) Nonrheumatic aortic (valve) stenosis Nonrheumatic mitral (valve) insufficiency Nonrheumatic tricuspid (valve) insufficiency Other secondary pulmonary hypertension Sepsis secondary to UTI Fatigue History of pneumonia Osteopenia Liver disease History of GI bleed Diverticulitis History of blood transfusion Morbid obesity Iron deficiency anemia Hyperlipidemia Home Medications ?Medication ?Instructions ?Recorded ?Last Taken ?Type magnesium 250 mg tablet 250 mg PO DAILY SUPPLEMENT 10/09/18 08/05/24 History ferrous sulfate 325 mg (65 mg 325 mg PO TID SUPPLEMENT 04/14/19 08/06/24 History iron) tablet (Melissa-Time) pantoprazole 40 mg tablet,delayed 40 mg PO DAILY ACID REFLUX 03/06/21 08/06/24 History release cholecalciferol (vitamin D3) 50 50 mcg PO DAILY supplement 08/08/23 08/05/24 History mcg (2,000 unit) capsule amlodipine 10 mg tablet 10 mg PO DAILY BLOOD PRESSURE #90 12/11/23 08/06/24 Rx tabs furosemide 40 mg tablet 40 mg PO DAILY CHF #90 tabs 04/22/24 08/06/24 Rx sildenafil (pulm.hypertension) 20 40 mg PO TID PULMONARY HTN 05/27/24 08/06/24 History mg tablet apixaban 2.5 mg tablet (Eliquis) 2.5 mg PO BID 6 weeks because of 07/22/24 08/06/24 History receiving a ascorbic acid (vitamin C) 500 mg 500 mg PO TID SUPPLEMENT 07/22/24 08/06/24 History capsule Allergy/AdvReac Type Severity Reaction Status Date / Time pravastatin AdvReac Severe severe Verified 07/26/24 09:50 muscle and joint pain ceftriaxone (From Rocephin) AdvReac Mild pancreatiti Verified 07/26/24 09:50 s Family History Mother , age 83 Uterine cancer Hypertension Father , age 81 Heart disease Diabetes CAD (coronary artery disease) Hypertension Surgical History 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) History of esophagogastroduodenoscopy (EGD) History of colonoscopy History of hysterectomy History of root canal procedure H/O aortic valve replacement (09/15/18) coil embolization of colonic artery History of left heart catheterization (LHC) (04/10/17) Status post right foot surgery History of hysterectomy History of appendectomy Social History household members: spouse housing: house Smoking Status: Never smoker alcohol intake: never substance use type: does not use caffeine: No what type of physical activity do you participate in: none divina/yarsanism: Mennonite seatbelt use: always do you feel safe at home: Yes Physical Exam Const alert, oriented x3 and no apparent distress General Appearance: cooperative HEENT normocephalic and head/scalp atraumatic Eyes PERRL and EOMs intact bilaterally Neck supple and No nodes Resp normal air movement and clear to auscultation bilaterally Cardio regular rate and regular rhythm Heart Sounds: murmur GI soft to palpation, non-tender and non-distended Extremity General Extremity: edema Skin no rashes or lesions noted Skin Narrative: R 4th finger with splinter hemorrhage. R chest port no inflammation Neuro CN's II-XII intact bilaterally Lab / Micro Data Attestation: I reviewed the patient's lab results. 08/10/24 05:41 08/10/24 05:41 Labs: Laboratory Results - last 24 hr 08/09/24 18:00: Vancomycin Trough 20.5 H 08/10/24 05:41: WBC 7.5, RBC 2.62 L, Hgb 7.8 L, Hct 24.7 L, MCV 94.3, MCH 29.8, MCHC 31.6 L, RDW Std Deviation 45.7 H, RDW Coeff of Fariba 13.2, Plt Count 173, MPV 11.8, Immature Gran % (Auto) 0.400, Neut % (Auto) 85.4 H, Lymph % (Auto) 8.2 L, [place] % (Auto) 4.7, Eos % (Auto) 0.9, Baso % (Auto) 0.4, Absolute Neuts (auto) 6.4, Absolute Lymphs (auto) 0.61 L, Nucleated RBC % 0, APTT 37.7 H, Sodium 139, Potassium 4.0, Chloride 112 H, Carbon Dioxide 23.0, Anion Gap 4 L, BUN 23 H, C reatinine 1.27 H, Estim Creat Clear Calc 46.89, Est GFR (MDRD) Af Amer 52 L, Est GFR (MDRD) Non-Af 43 L, BUN/Creatinine Ratio 18.1, Glucose 107 H, Calcium 8.7, Total Bilirubin 0.70, Direct Bilirubin 0.18, AST 9 L, ALT 8 L, Alkaline Phosphatase 77, Total Protein 6.6, Albumin 2.5 L, Globulin 4.1 Micro: Microbiology 08/06/24 14:15 Blood Culture (Wb) - Anticubital Right Blood Culture - Final Coag Negative Staph 08/06/24 13:41 Blood Culture (Wb) - Other Bacteria Detection (PCR) - Final Staphylococcus epidermidis 08/06/24 13:41 Blood Culture (Wb) - Other Blood Culture - Final Staphylococcus epidermidis 08/06/24 14:21 Urine, Catheterized Urine Culture - Preliminary Mixed Gram Positive Organisms Imaging Radiology Impression Echocardiogram 08/10/24 08:40 Interpretation Summary Normal LV size. Left ventricular systolic function is normal. The left ventricular ejection fraction is 55 %. Pulmonary artery systolic pressure is 69 mmHg. Severe biatrial enlargement. Moderate to severe pulmonary hypertension Bioprosthetic aortic valve. Mean aortic valve gradient 14 mmHg. Ordering Physician: Carlos Peacock Performed By: Dany Triplett RCS
--- NOTE | 2024-08-10 13:45 | PRE.ANES_ITS ---
ASA Classification* ASA Classification ASA Classification: 3 Assessment & Plan Anesthesia* Anesthesia Assessment Anesthesia Assessment: Discussed sedation and/or anesthesia options, risks, benefits, and alternatives with patient/parents/legal guardian/POA. Questions invited. The patient/parents/legal guardian/POA seems to understand and agrees to proceed with anesthesia plan. Reviewed the physical assessment, medical history, allergy history and patient home medications list prior to surgery/procedure/anesthetic and documented any changes. Performed airway and anesthesia risk assessments. Anesthesia Type Anesthesia Type: MAC History Source History Obtained from:: Patient and Chart Anesthesia Focused Assessment* Temperature: 97.6 F Pulse Rate: 73 Blood Pressure: 162/66 Respiratory Rate: 18 Pulse Ox: 95 Oxygen Delivery Method: Room Air Oxygen Flow Rate (L/min): 4 Fraction of Inspired Oxygen (FIO2): 93 Airway Assessment Mouth opens: >3 cm Mallampati Score: I Teeth Condition: Caps/Crowns (Patient has several caps. They are all tight.) Neck Range of motion (ROM): Limited ROM (Slight decrease in extension.) Focused Labs Anesthesia Preop lab: CBC WBC 7.5 K/mm3 (4.4-11.0) 08/10/24 05:41 RBC 2.62 M/mm3 (4.2-5.4) L 08/10/24 05:41 Hgb 7.8 g/dL (12.0-15.0) L 08/10/24 05:41 Hct 24.7 % (37-47) L 08/10/24 05:41 Plt Count 173 K/mm3 (150-450) 08/10/24 05:41 CHEMISTRY Potassium 4.0 mmol/L (3.5-5.1) 08/10/24 05:41 Sodium 139 mmol/L (136-145) 08/10/24 05:41 Magnesium 2.5 mg/dL (1.6-2.6) 04/04/24 03:00 Phosphorus 3.2 mg/dL (2.5-4.9) 04/04/24 03:00 BUN 23 mg/dL (7-18) H 08/10/24 05:41 Creatinine 1.27 mg/dL (0.55-1.02) H 08/10/24 05:41 Glucose 107 mg/dL (74-106) H 08/10/24 05:41 POC Glucose 129 mg/dL (74-106) H 04/05/24 11:05 TSH 4.730 uIU/mL (0.358-3.740) H 07/15/24 08:45 COAG PT 20.2 SECONDS (11.7-14.9) H 08/06/24 13:41 INR 2.3 02/18/23 06:46 Pre-Assessment Diagnosis/Proposed Procedure Planned Operative Procedure(s): Esophagogastroduodenoscopy. 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 When Was Last Pacemaker Check Pt has Watchman device 08/10/24 01:40 QUESTION #4 FULL TEXT: You/Your Family Experience fever (hyperthermia) with Anesthesia Last Oral Intake Last Oral intake: Last Oral Intake NPO since 00:01 08/10/24 01:40 Meds taken in AM with sips of No 08/10/24 01:40 water? 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 Has anyone observed you stop breathing during sleep? STOP Results Positive 08/06/24 17:33 QUESTION #5 FULL TEXT : Do you snore loudly (louder than talking or can be heard through closed doors)? 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 Specify any problems Hx of Preganancy in last 3 No 08/06/24 17:33 Months Nurse Filling Out Transfusion BRIJESH 08/06/24 17:33 & Questions: Date: 08/06/24 08/06/24 17:33 Time: 17:46 08/06/24 17:33 Patient unable to answer at this time (ie. 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 INHALATION Q2H PRN PRN SOB &/OR WHEEZING Amlodipine Besylate 10 mg 08/09/24 17:40 08/09/24 17:50 Amlodipine 10 Mg Tablet PO 10 mg DAILY PAM Administration Protocol Apixaban 2.5 mg 08/06/24 22:00 08/08/24 08:57 Apixaban 2.5 Mg Tablet ([facility]) PO 2.5 mg BID PAM Administration Ferrous Sulfate 325 mg 08/07/24 08:00 08/10/24 13:15 Ferrous Sulfate 325 Mg Tablet PO Not Given TIDCM PAM Vancomycin IV-PHARMACY TO DOSE 500 mls @ 250 mls/hr 08/06/24 17:22 1 each/ Sodium Chloride IV PRN PRN Rx to Dose Protocol Sodium Chloride 100 mls @ 15 mls/hr 08/06/24 17:39 IV .Q6H40M PRN Saline Flush Sodium Chloride 100 mls @ 15 mls/hr 08/06/24 17:39 IV .Q6H40M PRN Additional IVPB Infusion Pantoprazole Sodium 40 mg/ 110 mls @ 330 mls/hr 08/08/24 22:00 08/10/24 13:15 Sodium Chloride IV Infused Q12 PAM Infusion Magnesium Chloride 64 mg 08/07/24 10:00 08/10/24 09:35 Magnesium Chloride 64 Mg Delay Rel.Tablet PO Not Given DAILY PAM Melatonin 3 mg 08/06/24 17:22 Melatonin 3 Mg Tablet PO QHS PRN PRN INSOMNIA Ondansetron HCl 4 mg 08/06/24 17:22 Ondansetron 4 Mg/2 Ml Vial IV Q8H PRN PRN NAUSEA/VOMITING Senna/Docusate Sodium 2 tablet 08/06/24 22:00 08/10/24 09:35 Senna/Docusate Sodium 1 Tablet PO Not Given BID PAM Sildenafil Citrate 40 mg 08/06/24 22:00 08/10/24 05:12 Sildenafil Citrate 20 Mg Tablet PO Not Given TID [facility] Protocol Sodium Chloride 10 - 40 ml 08/06/24 17:39 08/08/24 20:40 0.9% Saline Lock 10 Ml Syringe IV 10 ml UD PRN Administration SALINE FLUSH Vancomycin Protocol 1 lab 08/10/24 16:00 Vancomycin Trough/Random Due 08/10/24 20:[address] [facility] Medical History Kidney disease Pancreatitis GI bleed CPAP (continuous positive airway pressure) dependence Pulmonary hypertension Atrial fibrillation Congestive heart failure (CHF) Myocardial infarct Urinary tract infection CRBSI (catheter-related bloodstream infection) Morbid obesity with BMI of 40.0-44.9, adult Elevated troponin Wears hearing aid Loss of hearing Wears glasses Gout Walker as ambulation aid Low iron Syncope History of ulceration GERD (gastroesophageal reflux disease) Shortness of breath on exertion Non-smoker Chronic kidney disease (CKD) History of renal disease History of edema History of stress test Cardiology follow-up encounter History of echocardiogram History of atrial fibrillation Pneumonia COVID-19 Obstructive sleep apnea Chronic kidney disease, stage 3b Pleural effusion on left 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 Anemia of chronic renal failure, stage 3 (moderate) Nonobstructive atherosclerosis of coronary artery Longstanding persistent atrial fibrillation Acute blood loss anemia (09/24/20) Iron deficiency anemia due to chronic blood loss Chronic GI bleeding Chronic diastolic (congestive) heart failure Type 2 diabetes mellitus Essential (primary) hypertension Presence of IVC filter (09/2018) Anemia in chronic kidney disease (CKD) Acute kidney injury Bloody stool Knee pain Anemia Arthritis Hyperkalemia Non-ST elevation (NSTEMI) myocardial infarction (12/09/16) Nonrheumatic aortic (valve) stenosis Nonrheumatic mitral (valve) insufficiency Nonrheumatic tricuspid (valve) insufficiency Other secondary pulmonary hypertension Sepsis secondary to UTI Fatigue History of pneumonia Osteopenia Liver disease History of GI bleed Diverticulitis History of blood transfusion Morbid obesity Iron deficiency anemia Hyperlipidemia Home Medications ?Medication ?Instructions ?Recorded ?Last Taken ?Type magnesium 250 mg tablet 250 mg PO DAILY SUPPLEMENT 10/09/18 08/05/24 History ferrous sulfate 325 mg (65 mg 325 mg PO TID SUPPLEMENT 04/14/19 08/06/24 History iron) tablet (Melissa-Time) pantoprazole 40 mg tablet,delayed 40 mg PO DAILY ACID REFLUX 03/06/21 08/06/24 History release cholecalciferol (vitamin D3) 50 50 mcg PO DAILY supplement 08/08/23 08/05/24 History mcg (2,000 unit) capsule amlodipine 10 mg tablet 10 mg PO DAILY BLOOD PRESSURE #90 12/11/23 08/06/24 Rx tabs furosemide 40 mg tablet 40 mg PO DAILY CHF #90 tabs 04/22/24 08/06/24 Rx sildenafil (pulm.hypertension) 20 40 mg PO TID PULMONARY HTN 05/27/24 08/06/24 History mg tablet apixaban 2.5 mg tablet (Eliquis) 2.5 mg PO BID 6 weeks because of 07/22/24 08/06/24 History receiving a ascorbic acid (vitamin C) 500 mg 500 mg PO TID SUPPLEMENT 07/22/24 08/06/24 History capsule Allergy/AdvReac Type Severity Reaction Status Date / Time pravastatin AdvReac Severe severe Verified 07/26/24 09:50 muscle and joint pain ceftriaxone (From Rocephin) AdvReac Mild pancreatiti Verified 07/26/24 09:50 s Family History Mother , age 83 Uterine cancer Hypertension Father , age 81 Heart disease Diabetes CAD (coronary artery disease) Hypertension Surgical History 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) History of esophagogastroduodenoscopy (EGD) History of colonoscopy History of hysterectomy History of root canal procedure H/O aortic valve replacement (09/15/18) coil embolization of colonic artery History of left heart catheterization (LHC) (04/10/17) Status post right foot surgery History of hysterectomy History of appendectomy Social History household members: spouse housing: house Smoking Status: Never smoker alcohol intake: never substance use type: does not use caffeine: No what type of physical activity do you participate in: none divina/zoroastrian: Mennonite seatbelt use: always do you feel safe at home: Yes Review of Systems (Anesthesia) ROS Narrative System reviewed and no additional complaints, except as documented.
[2024-08-10] MEDS: SILDENAFIL CITRATE 20 MG TABLET 40 MG PO ×2 (14:18→21:00)
--- NOTE | 2024-08-10 14:56 | EX.PCM.CON.G ---
HPI Consult Data Date of Consult: 08/10/24 HPI Narrative Reason for Consultation: Anemia HPI Narrative: KAMI ROLLE, is a 79-year-old female history of A-fib, hypertension, CHF, CKD IIIb, GERD, pulmonary hypertension presented [facility] ED 08/06/2024 with fever, chills, shortness of breath. She recently finished Cipro for UTI but today became short of breath prompting her to come to the ED. Her shortness of breath and fever both started today, denies any sick contacts. In the ED patient febrile with a temperature of 103.2, tachycardic with a heart rate of 115 and tachypneic with respiratory rate of 35. She has found a white blood cell count of 21.4, INR of 1.7 and an LUIS ALBERTO with increased creatinine from baseline up to 1.78 (was 1.46 on 07/15/2024). There was concern patient was septic so she was given IV fluids (2 L instead of 3 given her congestive heart failure history) and broad-spectrum antibiotics. She was diagnosed with Staphylococcus RES on blood cultures. There was concern about infected central venous catheter. She has been seen by infectious disease. I was called to see her due to decreasing hemoglobin and her history of peptic ulcer disease. [facility] Medical History (Updated 08/10/24 @ 15:[address] Kaur Friend, DO) Kidney disease Pancreatitis GI bleed CPAP (continuous positive airway pressure) dependence Pulmonary hypertension Atrial fibrillation Congestive heart failure (CHF) Myocardial infarct Urinary tract infection CRBSI (catheter-related bloodstream infection) Morbid obesity with BMI of 40.0-44.9, adult Elevated troponin Wears hearing aid Loss of hearing Wears glasses Gout Walker as ambulation aid Low iron Syncope History of ulceration GERD (gastroesophageal reflux disease) Shortness of breath on exertion Non-smoker Chronic kidney disease (CKD) History of renal disease History of edema History of stress test Cardiology follow-up encounter History of echocardiogram History of atrial fibrillation Pneumonia COVID-19 Obstructive sleep apnea Chronic kidney disease, stage 3b Pleural effusion on left 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 skilled nursing (current) use of anticoagulants Anemia of chronic renal failure, stage 3 (moderate) Nonobstructive atherosclerosis of coronary artery Longstanding persistent atrial fibrillation Acute blood loss anemia (09/24/20) Iron deficiency anemia due to chronic blood loss Chronic GI bleeding Chronic diastolic (congestive) heart failure Type 2 diabetes mellitus Essential (primary) hypertension Presence of IVC filter (09/2018) Anemia in chronic kidney disease (CKD) Acute kidney injury Bloody stool Knee pain Anemia Arthritis Hyperkalemia Non-ST elevation (NSTEMI) myocardial infarction (12/09/16) Nonrheumatic aortic (valve) stenosis Nonrheumatic mitral (valve) insufficiency Nonrheumatic tricuspid (valve) insufficiency Other secondary pulmonary hypertension Sepsis secondary to UTI Fatigue History of pneumonia Osteopenia Liver disease History of GI bleed Diverticulitis History of blood transfusion Morbid obesity Iron deficiency anemia Hyperlipidemia Home Medications ?Medication ?Instructions ?Recorded ?Last Taken ?Type magnesium 250 mg tablet 250 mg PO DAILY SUPPLEMENT 10/09/18 08/05/24 History ferrous sulfate 325 mg (65 mg 325 mg PO TID SUPPLEMENT 04/14/19 08/06/24 History iron) tablet (Melissa-Time) pantoprazole 40 mg tablet,delayed 40 mg PO DAILY ACID REFLUX 03/06/21 08/06/24 History release cholecalciferol (vitamin D3) 50 50 mcg PO DAILY supplement 08/08/23 08/05/24 History mcg (2,000 unit) capsule amlodipine 10 mg tablet 10 mg PO DAILY BLOOD PRESSURE #90 12/11/23 08/06/24 Rx tabs furosemide 40 mg tablet 40 mg PO DAILY CHF #90 tabs 04/22/24 08/06/24 Rx sildenafil (pulm.hypertension) 20 40 mg PO TID PULMONARY HTN 05/27/24 08/06/24 History mg tablet apixaban 2.5 mg tablet (Eliquis) 2.5 mg PO BID 6 weeks because of 07/22/24 08/06/24 History receiving a ascorbic acid (vitamin C) 500 mg 500 mg PO TID SUPPLEMENT 07/22/24 08/06/24 History capsule Allergy/AdvReac Type Severity Reaction Status Date / Time pravastatin AdvReac Severe severe Verified 07/26/24 09:50 muscle and joint pain ceftriaxone (From Rocephin) AdvReac Mild pancreatiti Verified 07/26/24 09:50 s Family History Mother , age 83 Uterine cancer Hypertension Father , age 81 Heart disease Diabetes CAD (coronary artery disease) Hypertension Surgical History 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) History of esophagogastroduodenoscopy (EGD) History of colonoscopy History of hysterectomy History of root canal procedure H/O aortic valve replacement (09/15/18) coil embolization of colonic artery History of left heart catheterization (LHC) (04/10/17) Status post right foot surgery History of hysterectomy History of appendectomy Social History household members: spouse housing: house Smoking Status: Never smoker alcohol intake: never substance use type: does not use caffeine: No what type of physical activity do you participate in: none divina/protestant: Mennonite seatbelt use: always do you feel safe at home: Yes ROS ROS Narrative General: Fevers for 2 days HENT: Denies headache, denies stuffy nose, denies sore throat EYES: Denies changes in vision Resp: Denies cough, shortness of breath worsening over 1 day Cardiac: Denies chest pain GI: Denies abdominal pain, denies changes in bowel, denies nausea/vomiting : Denies changes in urination Extremity: Denies swelling MSK: Feels a little generally weak Neuro: Denies any numbness/tingling Heme: Little bit of bruising above her knees after she had fall a couple months ago Skin: Denies rashes Psychiatric: No complaints voiced Physical Exam Const alert, oriented x3 and no apparent distress General Appearance: cooperative HEENT normocephalic and head/scalp atraumatic Eyes PERRL and EOMs intact bilaterally Neck supple and No nodes Resp normal air movement and clear to auscultation bilaterally Cardio regular rate and regular rhythm Heart Sounds: murmur GI soft to palpation, non-tender and non-distended Extremity General Extremity: edema Skin no rashes or lesions noted Skin Narrative: R 4th finger with splinter hemorrhage. R chest port no inflammation Neuro CN's II-XII intact bilaterally Lab / Micro Data 08/10/24 05:41 08/10/24 05:41 Labs: Laboratory Results - last 24 hr 08/09/24 18:00: Vancomycin Trough 20.5 H 08/10/24 05:41: WBC 7.5, RBC 2.62 L, Hgb 7.8 L, Hct 24.7 L, MCV 94.3, MCH 29.8, MCHC 31.6 L, RDW Std Deviation 45.7 H, RDW Coeff of Fariba 13.2, Plt Count 173, MPV 11.8, Immature Gran % (Auto) 0.400, Neut % (Auto) 85.4 H, Lymph % (Auto) 8.2 L, Bond % (Auto) 4.7, Eos % (Auto) 0.9, Baso % (Auto) 0.4, Absolute Neuts (auto) 6.4, Absolute Lymphs (auto) 0.61 L, Nucleated RBC % 0, APTT 37.7 H, Sodium 139, Potassium 4.0, Chloride 112 H, Carbon Dioxide 23.0, Anion Gap 4 L, BUN 23 H, Creatinine 1.27 H, Estim Creat Clear Calc 46.89, Est GFR (MDRD) Af Amer 52 L, Est GFR (MDRD) Non-Af 43 L, BUN/Creatinine Ratio 18.1, Glucose 107 H, Calcium 8.7, Total Bilirubin 0.70, Direct Bilirubin 0.18, AST 9 L, ALT 8 L, Alkaline Phosphatase 77, Total Protein 6.6, Albumin 2.5 L, Globulin 4.1 Micro: Microbiology 08/06/24 14:15 Blood Culture (Wb) - Anticubital Right Blood Culture - Final Coag Negative Staph 08/06/24 13:41 Blood Culture (Wb) - Other Bacteria Detection (PCR) - Final Staphylococcus epidermidis 08/06/24 13:41 Blood Culture (Wb) - Other Blood Culture - Final Staphylococcus epidermidis 08/06/24 14:21 Urine, Catheterized Urine Culture - Preliminary Mixed Gram Positive Organisms Imaging Radiology Impression Echocardiogram 08/10/24 08:40 Interpretation Summary Normal LV size. Left ventricular systolic function is normal. The left ventricular ejection fraction is 55 %. Pulmonary artery systolic pressure is 69 mmHg. Severe biatrial enlargement. Moderate to severe pulmonary hypertension Bioprosthetic aortic valve. Mean aortic valve gradient 14 mmHg. Ordering Physician: Carlos Peacock Performed By: Dany Triplett RCS Assessment & Plan Assessment/Plan (1) Bacteremia due to coagulase-negative Staphylococcus: PLAN: Port-related infection. H/o TAVR and watchman device. 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 TTE done this AM, will repeat bcx from port and order MANA. Cont vanc for now. Will follow, thank you (2) GI bleed: (3) Acute GI bleeding: (4) Elevated troponin: (5) Acute blood loss anemia: (6) FUO (fever of unknown origin): PLAN: Plan 78 y/o F with chronic Pulmonary HTN, Morbid obesity, GERD, Hx GI bleed w/ Colonic AVMs s/p prior clipping/cauterizations. She presents with fatigue, malaise and suspected GI bleed. She was covered to have hemoglobin of 7.8 and redraw was 7.4. Acute GI Bleed w/ resultant Acute Blood Loss Anemia on chronic anemia/iron deficiency anemia w/ Hx prior GI bleeds w/ Hx Colonic AVMs s/p prior multiple clippings and cauterizations at [facility]. She has never had a capsule endoscopy. Differential diagnosis does include upper GI bleed with rapid transit, lower GI bleed all secondary to angiodysplasias. She should undergo upper endoscopy and capsule endoscopy. She was explained alternatives, risk and benefits including outstanding bleeding, infection, sepsis, perforation, need for emergent urgent . She have an ASA of 3. Charges/Coding Visit Charges Inpatient E&M: 69120 Init Hosp L3
--- NOTE | 2024-08-10 16:41 | OP.CCLET_ITS ---
08/10/2024 Michelle Johnson Re : Upper GI endoscopy procedure for Gabbi Singh Aggier Max This procedure was performed on Saturday, August 10, 2024. My impressions and recommendations are as follows: Impressions : - No gross lesions in the entire esophagus. - Medium-sized hiatal hernia. - Multiple gastric polyps. - Oozing gastric ulcer with pigmented material. Treatment not successful. Treated with a heater probe. Clips were placed. Clip youth program director: [place]. - Mucosal variant in the duodenum. - No specimens collected. Recommendations : - Return patient to [facility] for ongoing care. - Resume regular diet. - Continue present medications. My findings are described in the full procedure note, which is enclosed. If I can be of further assistance, please feel free to contact me at . Sincerely, Vincent Snowden, 08/10/2024 4:40:53 PM This report has been signed electronically.
--- NOTE | 2024-08-10 16:41 | OP.EGD_ITS ---
Patient Name: Gabbi Singh Procedure Date: 08/10/2024 4:13 PM Date of : 1945 Age: 79 Procedure: Upper GI endoscopy Indications: Iron deficiency anemia, Occult blood in stool, Suspected upper gastrointestinal bleeding Providers: Vincent Snowden DO Medicines: Monitored Anesthesia Care Patient Profile: This is an 79 year old female. Refer to note in patient chart for documentation of history and physical. Patient has symptoms. Her most recent EGD for treatment of bleeding was within the past six months. Complications: No immediate complications. Procedure: Pre-Anesthesia Assessment: - Prior to the procedure, a History and Physical was performed, and patient medications and allergies were reviewed. The patient is competent. The risks and benefits of the procedure and the sedation options and risks were discussed with the patient. All questions were answered and informed consent was obtained. Patient identification and proposed procedure were verified by the physician in the pre-procedure area. Mental Status Examination: alert and oriented. Airway Examination: normal oropharyngeal airway and neck mobility. Respiratory Examination: clear to auscultation. CV Examination: normal. Prophylactic Antibiotics: The patient does not require prophylactic antibiotics. Prior Anticoagulants: The patient has taken no anticoagulant or antiplatelet agents. ASA Grade Assessment: III - A patient with severe systemic disease. After reviewing the risks and benefits, the patient was deemed in satisfactory condition to undergo the procedure. The anesthesia plan was to use monitored anesthesia care (MAC). Immediately prior to administration of medications, the patient was re-assessed for adequacy to receive sedatives. The heart rate, respiratory rate, oxygen saturations, blood pressure, adequacy of pulmonary ventilation, and response to care were monitored throughout the procedure. The physical status of the patient was re-assessed after the procedure. After obtaining informed consent, the endoscope was passed under direct vision. Throughout the procedure, the patient's blood pressure, pulse, and oxygen saturations were monitored continuously. The Endoscope was introduced through the mouth, and advanced to the second part of duodenum. The upper GI endoscopy was accomplished without difficulty. The patient tolerated the procedure well. Scope In: 4:23:03 PM Scope Out: 4:32:47 PM Total Procedure Duration Time 0 hours 9 minutes 44 seconds Findings: No gross lesions were noted in the entire esophagus. A medium-sized hiatal hernia was present. Multiple 7 mm hyperplastic polyps with no bleeding and no stigmata of recent bleeding were found in the gastric body. One oozing linear gastric ulcer with pigmented material was found at the pylorus. The lesion was 5 mm in largest dimension. Coagulation for hemostasis using heater probe was unsuccessful. For hemostasis, two hemostatic clips were successfully placed. Clip inside sales professional: Bizo. There was no bleeding during, or at the end, of the procedure. Diffuse mild mucosal variance characterized by discoloration was found in the second portion of the duodenum. Impression: - No gross lesions in the entire esophagus. - Medium-sized hiatal hernia. - Multiple gastric polyps. - Oozing gastric ulcer with pigmented material. Treatment not successful. Treated with a heater probe. Clips were placed. Clip inside sales professional: [place] [facility]. - Mucosal variant in the duodenum. - No specimens collected. Recommendation: - Return patient to [facility] for ongoing care. - Resume regular diet. - Continue present medications. Procedure Code(s): --- Professional --- 24150, Esophagogastroduodenoscopy, flexible, transoral; with control of bleeding, any method CPT copyright 2021 [employer]. All rights reserved. The codes documented in this report are preliminary and upon energy scheduler review may be revised to meet current compliance requirements. Vincent Snowden DO 08/10/2024 4:40:53 PM This report has been signed electronically. Number of Addenda: 0 Note Initiated On: 08/10/2024 4:13 PM
--- NOTE | 2024-08-10 16:42 | PCM.POST.ANE ---
Anesthesia: Postop Eval I Current Vital Signs Temperature: 98.6 F Pulse Rate: 92 Blood Pressure: 155/59 Respiratory Rate: 16 Pulse Ox: 92 Oxygen Delivery Method: Room Air Assessment Airway patent: Yes Spontaneous unlabored respirations: Yes Mental status: Awake and Calm nausea: No Vomiting: No Anesthesia Complication: No Fluid Hydration Crystalloid volume administer (ml): 30 Total IV fluid infused: 30 Progress Note Anesthesia document: Postop Eval 1 completed: Yes
--- NOTE | 2024-08-10 16:43 | POSTOPAN2_ITS ---
Anesthesia Postop Eval I Sum Postop Eval Completion status Anesthesia document: Postop Eval 1 completed: Yes Anesthesia Postop Eval I Summary Anesthesia Postop Eval I Summary: Anesthesia Postop Eval I: Assessment Summary Airway patent Yes 08/10/24 16:43 OUTDOOR ADVENTURE INSTRUCTOR.MDOT Spontaneous unlabored Yes 08/10/24 16:43 OUTDOOR ADVENTURE INSTRUCTOR.MDOT respirations Mental status Awake,Calm 08/10/24 16:43 OUTDOOR ADVENTURE INSTRUCTOR.MDOT nausea No 08/10/24 16:43 OUTDOOR ADVENTURE INSTRUCTOR.MDOT Vomiting No 08/10/24 16:43 OUTDOOR ADVENTURE INSTRUCTOR.MDOT Anesthesia Postop Eval I: Fluid Summary Crystalloid volume administer 30 08/10/24 16:43 OUTDOOR ADVENTURE INSTRUCTOR.MDOT (ml) Colloids volume administered ( ml) Blood Product volume administered (ml) Total IV fluid infused 30 08/10/24 16:43 OUTDOOR ADVENTURE INSTRUCTOR.MDOT Anesthesia Postop Eval I: Summary Notes Anesthesia Complication No 08/10/24 16:43 OUTDOOR ADVENTURE INSTRUCTOR.MDOT Anesthesia Complication Comment: Post-operative progress note Anesthesia: Postop Eval II Evaluation Mental status: Awake and Calm Pain Level: 0 nausea: No Vomiting: No Complications Anesthesia Complication: No
--- NOTE | 2024-08-10 16:43 | PCM.POSTANE2 ---
Anesthesia Postop Eval I Sum Postop Eval Completion status Anesthesia document: Postop Eval 1 completed: Yes Anesthesia Postop Eval I Summary Anesthesia Postop Eval I Summary: Anesthesia Postop Eval I: Assessment Summary Airway patent Yes 08/10/24 16:43 LIGHT ARMORED RECONNAISSANCE OFFICER.MDOT Spontaneous unlabored Yes 08/10/24 16:43 LIGHT ARMORED RECONNAISSANCE OFFICER.MDOT respirations Mental status Awake,Calm 08/10/24 16:43 LIGHT ARMORED RECONNAISSANCE OFFICER.MDOT nausea No 08/10/24 16:43 LIGHT ARMORED RECONNAISSANCE OFFICER.MDOT Vomiting No 08/10/24 16:43 LIGHT ARMORED RECONNAISSANCE OFFICER.MDOT Anesthesia Postop Eval I: Fluid Summary Crystalloid volume administer 30 08/10/24 16:43 LIGHT ARMORED RECONNAISSANCE OFFICER.MDOT (ml) Colloids volume administered ( ml) Blood Product volume administered (ml) Total IV fluid infused 30 08/10/24 16:43 LIGHT ARMORED RECONNAISSANCE OFFICER.MDOT Anesthesia Postop Eval I: Summary Notes Anesthesia Complication No 08/10/24 16:43 LIGHT ARMORED RECONNAISSANCE OFFICER.MDOT Anesthesia Complication Comment: Post-operative progress note Anesthesia: Postop Eval II Evaluation Mental status: Awake and Calm Pain Level: 0 nausea: No Vomiting: No Complications Anesthesia Complication: No
[2024-08-10] MEDS: Sodium Ferric Gluconat/Sucrose 125 MG in 0.9% Normal Saline (100mL Bag) 100 ML 110 MG IV (17:47)
[2024-08-10] MEDS: amLODIPine 10 MG Tablet PO (17:48)
[2024-08-10 18:23] LABS: Vancomycin, Random Level 16.4 ug/mL (0.0-15.0)
--- NOTE | 2024-08-10 18:52 | PCM.RX.CS ---
Consult Antibiotic Management Pharmacy has been consulted to manage selected antibiotic: Vancomycin Type of Intervention Type of Consult: Follow-up Suspected Infection Suspected Infection: Sepsis Labs Labs: Sodium 139 mmol/L (136-145) 08/10/24 05:41 Potassium 4.0 mmol/L (3.5-5.1) 08/10/24 05:41 Chloride 112 mmol/L (98-107) H 08/10/24 05:41 Carbon Dioxide 23.0 mmol/L (21.0-32.0) 08/10/24 05:41 Anion Gap 4 (5-15) L 08/10/24 05:41 BUN 23 mg/dL (7-18) H 08/10/24 05:41 Creatinine 1.27 mg/dL (0.55-1.02) H 08/10/24 05:41 Est GFR (MDRD) Af Amer 52 mL/min (>60) L 08/10/24 05:41 Est GFR (MDRD) Non-Af 43 mL/min (>60) L 08/10/24 05:41 BUN/Creatinine Ratio 18.1 RATIO (10-20) 08/10/24 05:41 Glucose 107 mg/dL (74-106) H 08/10/24 05:41 Vancomycin Trough 20.5 ug/mL (5.0-15.0) H 08/09/24 18:00 Random Vancomycin 16.4 ug/mL (0.0-15.0) H 08/10/24 17:45 Microbiology Microbiology: Microbiology 08/06/24 14:15 Blood Culture (Wb) - Anticubital Right Blood Culture - Final Coag Negative Staph 08/06/24 13:41 Blood Culture (Wb) - Other Bacteria Detection (PCR) - Final Staphylococcus epidermidis 08/06/24 13:41 Blood Culture (Wb) - Other Blood Culture - Final Staphylococcus epidermidis 08/06/24 14:21 Urine, Catheterized Urine Culture - Preliminary Mixed Gram Positive Organisms 08/08/24 08:25 Stool Stool Occult Blood (LASHAUN) - Final Occult Blood Positive 08/06/24 15:55 Mucosa - Nose Respiratory Panel (PCR) - Final 08/06/24 17:40 Urine Catheter - Catheter Legionella Antigen - Final 08/06/24 17:40 Urine Catheter - Catheter Streptococcus pneumoniae Antigen (M - Final 08/06/24 13:48 Mucosa - Nose SARS-CoV-2, Influenza & RSV (PCR) - Final Goal Trough Goal Trough: 15-20 mcg/mL Pharmacy Plan for Drug Dosing Pharmacy Plan for Drug Dosing: VANCOMYCIN LEVEL RECEIVED Current Vancomycin Dose: on hold Number of Doses Received: 1500mg x1 Vancomycin Level: 16.4 Hours Since Last Dose: 71.5 Renal Function: sCr 1.27 Renal Function Trend: improved Lab/Micro: pending Vancomycin Plan/Comments: Restart Vancomycin at 750mg Q24H @ 1900 08/10/24. Will check a random level prior to next dose to ensure clearance. Pending Level: Random Vancomycin level @ 1830 08/11/24 Pharmacy Service will continue to monitor and adjust dosing as required. Follow-Up Labs Follow-Up Labs: Trough: Vancomycin (08/11/24 @ 1830)
[2024-08-10] MEDS: Vancomycin HCl 750 MG in 0.9% Normal Saline (250mL Bag) 250 ML 250 MG IV (20:59)
[2024-08-10] MEDS: Senna/Docusate Sodium 1 Tablet 2 TABLET PO (21:00)
[2024-08-11] VITALS (12 sets, daily range): BP systolic 132–156; BP diastolic 50–64; PULSE 62–85; RESP 16–18; TEMP 36.5–37.1; O2SAT 90–97; BMI 44.4; BMI 43.4
[2024-08-11] MEDS: 0.9% Saline Lock 10 ML Syringe IV ×3 (06:40→22:10)
[2024-08-11 07:06] LABS: Absolute Lymphocyte Count 0.58 X10^3/uL (0.83-4.51); Absolute Neutrophil Count 6.4 X10^3/uL (2.0-7.7); Basophil# 0.03 X10^3/uL; Basophil% 0.4 % (0-1); Eosinophil# 0.08 X10^3/uL; Eosinophils% 1.1 % (0-5); Hematocrit 25.5 % (37-47); Lymphocyte # 0.58 X10^3/ul (0.83-4.51); Lymphocyte % 7.7 % (19-41); Mean Corp Hgb Conc 31.4 g/dL (32-36); Mean Corpuscular Hgb 30.1 pg (27.0-32.0); Mean Corpuscular Volume 95.9 fL (81-99); Mean Platelet Vol. 11.6 fl (6.2-12.0); Monocyte# 0.37 X10^3/uL; Monocyte% 4.9 % (0-10); NRBC Flagged by Analyzer 0 % (0-5); Neutrophil # 6.43 X10^3/uL (2.7-7.7); Neutrophil % 85.4 % (47-70); POSITIVE DIFFERENTIAL YES; Platelet Count 197 K/mm3 (150-450); RBC Distribution Width CV 13.1 % (11.6-14.6); RBC Distribution Width SD 46.2 fl (35.1-43.9); Red Blood Count 2.66 M/mm3 (4.2-5.4); White Blood Count 7.5 K/mm3 (4.4-11.0)
[2024-08-11 07:23] LABS: Anion Gap 4 (5-15); BUN 18 mg/dL (7-18); BUN/Creat Ratio 15.8 RATIO (10-20); Calcium,Total 8.8 mg/dL (8.5-10.1); Chloride 114 mmol/L (98-107); Creatinine, Serum 1.14 mg/dL (0.55-1.02); EST Glomerular Filtration Rate 49 mL/min (>60); Est Glom Filt Rate - Afr Amer 59 mL/min (>60); Glucose 95 mg/dL (74-106); Potassium 4.1 mmol/L (3.5-5.1); Sodium Level 141 mmol/L (136-145)
[2024-08-11 08:06] LABS: International Normalized Ratio 1.2; Prothrombin Time (Protime)PT. 15.3 SECONDS (11.7-14.9)
--- NOTE | 2024-08-11 08:30 | ECHOTEE_ITS ---
Reason For Study: Endocarditis Medication MANA probe 6VT-D (SN [id number]) passed without difficulty. No complications were noted. Cetacaine Topical [place] given X3 orally. Versed 2 mg given slow IVP. Fentanyl 50 mcg given slow IVP. Performed a rapid injection of agitated mix of 9 cc saline and 1cc air to assess for atrial septal defect. Left Ventricle Normal LV size. The left ventricular ejection fraction is 60 %. No regional wall motion abnormalities noted. Right Ventricle Normal RV size. Normal systolic function. Atria Intact atrial septum. Appendage thrombus of the left atrium. There is moderate sponatenous contrast in the left atrium. Appendage occlusive device in place. Normal right atrium. Mitral Valve Mitral valve is well-visualized with a 1 cm mobile vegetation noted on the anterior leaflet. Moderate (2+) eccentric mitral valve insufficiency. Tricuspid Valve Normal tricuspid valve. Mild to moderate (1-2+) tricuspid valve insufficiency. Aortic Valve Bioprosthetic aortic valve. Pulmonic Valve Normal pulmonic valve. Mild (1+) pulmonic valve insufficiency. Vessels Normal aortic root. Normal arch. The pulmonary artery is normal size. Pulmonary venous flow normal. ECHO/Echo Transesophageal (MANA) Interpretation Summary The left ventricular ejection fraction is 60 %. Normal LV size. Appendage occlusive device in place Mitral valve is well-visualized with a 1 cm mobile vegetation noted on the ante rior leaflet Moderate (2+) eccentric mitral valve insufficiency. Bioprosthetic aortic valve. Ordering Physician: Carlos Peacock Referring Physician: Chiquis Santana Performed By: Lizabeth Figueredo, HAL, RVT
[2024-08-11] MEDS: Pantoprazole Sodium 40 MG in 0.9% Normal Saline (100mL MB+) 100 ML 330 MG IV ×2 (10:00→22:18)
--- NOTE | 2024-08-11 10:26 | PCM.PN.ID ---
Physical Exam Narrative Feeling better, no fever, no n/v/d. Const alert and no apparent distress General Appearance: cooperative Resp normal air movement and clear to auscultation bilaterally Cardio regular rate and regular rhythm Heart Sounds: murmur GI soft to palpation, non-tender and non-distended Extremity General Extremity: Negative for edema Skin no rashes or lesions noted ID ID: Route of nutrition/ use of supplements: [] Nutritional Intake: [] IV Site: [] Govea Catheter: [] Assessment & Plan Assessment/Plan (1) Bacteremia due to coagulase-negative Staphylococcus: PLAN: Bcx with MSSE. Port-related infection. H/o TAVR and watchman device. 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 TTE done, will repeat bcx. Pending results of MANA. Will narrow vanc to cefazolin. If MANA shows prosthetic valve endocarditis, might need transfer for cardiac surgery eval. Will follow, d/w Dr. Lynne
[2024-08-11] MEDS: Magnesium Chloride 64 MG Delay Rel.Tablet PO (12:14)
[2024-08-11] MEDS: Senna/Docusate Sodium 1 Tablet 2 TABLET PO ×2 (12:14→22:19)
[2024-08-11] MEDS: amLODIPine 10 MG Tablet PO (12:14)
--- NOTE | 2024-08-11 12:30 | CASEMGMT ---
LELE BEGUM updated by hospitalist that patient will need IV Ertapenem daily at discharge. LELE BEGUM in to discuss options with patient and . Patient and state they would like to complete at [facility]. LELE BEGUM updated hospitalist, plan is for patient to discharge tomorrow 08/12/24 after IV ATB. LELE BEGUM called [facility] and faxed ordered. LELE BEGUM spoke with director Flavia Christine and they will be able to see patient on 08/13 at 3pm. LELE BEGUM updated patient and . Patient and denied further needs at this time and had no further questions or concerns. LELE BEGUM updated hospitalist and discharge plan.
[2024-08-11] MEDS: Ertapenem Sod 1 GM in 0.9% Normal Saline (50mL MB+) 50 ML IV (14:01)
[2024-08-11] MEDS: SILDENAFIL CITRATE 20 MG TABLET 40 MG PO ×2 (14:02→22:19)
--- NOTE | 2024-08-11 14:54 | EX.PCM.PN.GI ---
Subjective Subjective And patient underwent an upper endoscopy for acute on chronic anemia. She underwent MANA today to look for signs of endocarditis. Objective Data Objective Data Vital Signs: Vital Signs Temp Pulse Resp BP Pulse Ox O2 Del Method O2 Flow Rate 98.4 F 72 16 155/60 H 93 Room Air 3 08/11/24 09:55 08/11/24 13:56 08/11/24 10:05 08/11/24 13:56 08/11/24 12:10 08/11/24 12:10 08/11/24 10:05 FiO2 93 08/10/24 13:52 Oxygen Flow Rate (L/min) 3 Oxygen Delivery Method Room Air Weight: 269 lb 6.478 oz Body Mass Index (BMI) 43.4 Intake & Output: Intake and Output for Last 24 Hours 08/09/24 08/10/24 08/11/24 23:59 23:59 23:59 Intake Total 730 / 730 585 / 585 760 / 760 Output Total 925 / 1325 600 / 600 Balance -195 / -595 -15 / -15 760 / 760 Lab / Micro Data 08/11/24 06:41 08/11/24 06:41 Labs: Laboratory Results - last 24 hr 08/10/24 17:45: Random Vancomycin 16.4 H 08/11/24 06:41: WBC 7.5, RBC 2.66 L, Hgb 8.0 L, Hct 25.5 L, MCV 95.9, MCH 30.1, MCHC 31.4 L, RDW Std Deviation 46.2 H, RDW Coeff of Fariba 13.1, Plt Count 197, MPV 11.6, Immature Gran % (Auto) 0.500, Neut % (Auto) 85.4 H, Lymph % (Auto) 7.7 L, [place] % (Auto) 4.9, Eos % (Auto) 1.1, Baso % (Auto) 0.4, Absolute Neuts (auto) 6.4, Absolute Lymphs (auto) 0.58 L, Nucleated RBC % 0, PT 15.3 H, INR 1.2, Sodium 141, Potassium 4.1, Chloride 114 H, Carbon Dioxide 23.0, Anion Gap 4 L, BUN 18, Creatinine 1.14 H, Estim Creat Clear Calc 51.60, Est GFR (MDRD) Af Amer 59 L, Est GFR (MDRD) Non-Af 49 L, BUN/Creatinine Ratio 15.8, Glucose 95, Calcium 8.8 Micro: Microbiology 08/06/24 14:21 Urine, Catheterized Urine Culture - Final Lactobacillus gasseri Strep anginosus 08/06/24 14:15 Blood Culture (Wb) - Anticubital Right Blood Culture - Final Coag Negative Staph 08/06/24 13:41 Blood Culture (Wb) - Other Bacteria Detection (PCR) - Final Staphylococcus epidermidis 08/06/24 13:41 Blood Culture (Wb) - Other Blood Culture - Final Staphylococcus epidermidis 08/08/24 08:25 Stool Stool Occult Blood (LASHAUN) - Final Occult Blood Positive 08/06/24 15:55 Mucosa - Nose Respiratory Panel (PCR) - Final 08/06/24 17:40 Urine Catheter - Catheter Legionella Antigen - Final 08/06/24 17:40 Urine Catheter - Catheter Streptococcus pneumoniae Antigen (M - Final 08/06/24 13:48 Mucosa - Nose SARS-CoV-2, Influenza & RSV (PCR) - Final Radiography Diagnostic Testing: Radiology Impression Transesophageal Echocardiogram 08/11/24 08:30 Interpretation Summary The left ventricular ejection fraction is 60 %. Normal LV size. Appendage occlusive device in place Mitral valve is well-visualized with a 1 cm mobile vegetation noted on the anterior leaflet Moderate (2+) eccentric mitral valve insufficiency. Bioprosthetic aortic valve. Ordering Physician: Carlos Peacock Referring Physician: Chiquis Santana Performed By: Lizabeth Figueredo, RDCS, RVT Physical Exam Narrative Feeling better. Const alert and no apparent distress General Appearance: cooperative Resp normal air movement and clear to auscultation bilaterally Cardio regular rate and regular rhythm Heart Sounds: murmur GI soft to palpation, non-tender and non-distended Extremity General Extremity: Negative for edema Skin no rashes or lesions noted Assessment & Plan Assessment/Plan (1) Bacteremia due to coagulase-negative Staphylococcus: PLAN: Port-related infection. H/o TAVR and watchman device. 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 TTE done this AM, will repeat bcx from port and order MANA. Cont vanc for now. Will follow, thank you (2) GI bleed: (3) Acute GI bleeding: (4) Elevated troponin: (5) Acute blood loss anemia: (6) FUO (fever of unknown origin): PLAN: Plan 78 y/o F with chronic Pulmonary HTN, Morbid obesity, GERD, Hx GI bleed w/ Colonic AVMs s/p prior clipping/cauterizations. She presents with fatigue, malaise and suspected GI bleed. She was covered to have hemoglobin of 7.8 and redraw was 7.4. Acute GI Bleed w/ resultant Acute Blood Loss Anemia on chronic anemia/iron deficiency anemia w/ Hx prior GI bleeds w/ Hx Colonic AVMs s/p prior multiple clippings and cauterizations at [facility]. She has never had a capsule endoscopy. Differential diagnosis does include upper GI bleed with rapid transit, lower GI bleed all secondary to angiodysplasias. She should undergo upper endoscopy and capsule endoscopy. She was explained alternatives, risk and benefits including outstanding bleeding, infection, sepsis, perforation, need for emergent urgent . She have an ASA of 3. Findings from her upper endoscopy yesterday were: Findings: No gross lesions were noted in the entire esophagus. A medium-sized hiatal hernia was present. Multiple 7 mm hyperplastic polyps with no bleeding and no stigmata of recent bleeding were found in the gastric body. One oozing linear gastric ulcer with pigmented material was found at the pylorus. The lesion was 5 mm in largest dimension. Coagulation for hemostasis using heater probe was unsuccessful. For hemostasis, two hemostatic clips were successfully placed. Clip process coach: [employer]. There was no bleeding during, or at the end, of the procedure. Diffuse mild mucosal variance characterized by discoloration was found in the second portion of the duodenum. Impression: - No gross lesions in the entire esophagus. - Medium-sized hiatal hernia. - Multiple gastric polyps. - Oozing gastric ulcer with pigmented material. Treatment not successful. Treated with a heater probe. Clips were placed. Clip process coach: [employer]. - Mucosal variant in the duodenum. - No specimens collected. Patient's hemoglobin is 8 today. She has a mixed anemia chronic disease in the setting of acute GI blood loss. I would discuss any iron treatments with infectious disease prior to her getting started on any IV iron or oral iron if planned in the future. Continue to monitor hemoglobin. Charges/Coding Visit Charges Inpatient E&M: 27058 Subs Hosp L3
--- NOTE | 2024-08-11 15:30 | PN.HOSP_ITS ---
Reason for Visit Reason for Visit: Diagnoses Sepsis, unspecified organism (08/06/24) Other staphylococcus as the cause of diseases classified elsewhere (08/06/24) Acute posthemorrhagic anemia (08/06/24) Gastrointestinal hemorrhage, unspecified (08/06/24) Dyspnea, unspecified (08/06/24) Fever, unspecified (08/06/24) Bacteremia (08/06/24) Other specified abnormal findings of blood chemistry (08/06/24) Objective Data Objective Data Vital Signs: Vital Signs Temp Pulse Resp BP Pulse Ox O2 Del Method O2 Flow Rate 98.4 F 72 16 155/60 H 93 Room Air 3 08/11/24 09:55 08/11/24 13:56 08/11/24 10:05 08/11/24 13:56 08/11/24 12:10 08/11/24 13:40 08/11/24 10:05 FiO2 93 08/10/24 13:52 Oxygen Flow Rate (L/min) 3 Oxygen Delivery Method Room Air Weight: 269 lb 6.478 oz Body Mass Index (BMI) 43.4 Intake & Output: Intake and Output for Last 24 Hours 08/09/24 08/10/24 08/11/24 23:59 23:59 23:59 Intake Total 730 / 730 585 / 585 760 / 760 Output Total 925 / 1325 600 / 600 Balance -195 / -595 -15 / -15 760 / 760 Lab / Micro Data 08/11/24 06:41 08/11/24 06:41 Labs: Laboratory Results - last 24 hr 08/10/24 17:45: Random Vancomycin 16.4 H 08/11/24 06:41: WBC 7.5, RBC 2.66 L, Hgb 8.0 L, Hct 25.5 L, MCV 95.9, MCH 30.1, MCHC 31.4 L, RDW Std Deviation 46.2 H, RDW Coeff of Fariba 13.1, Plt Count 197, MPV 11.6, Immature Gran % (Auto) 0.500, Neut % (Auto) 85.4 H, Lymph % (Auto) 7.7 L, [place] % (Auto) 4.9, Eos % (Auto) 1.1, Baso % (Auto) 0.4, Absolute Neuts (auto) 6.4, Absolute Lymphs (auto) 0.58 L, Nucleated RBC % 0, PT 15.3 H, INR 1.2, Sodium 141, Potassium 4.1, Chloride 114 H, Carbon Dioxide 23.0, Anion Gap 4 L, BUN 18, Creatinine 1.14 H, Estim Creat Clear Calc 51.60, Est GFR (MDRD) Af Amer 59 L, Est GFR (MDRD) Non-Af 49 L, BUN/Creatinine Ratio 15.8, Glucose 95, Calcium 8.8 Micro: Microbiology 08/06/24 14:21 Urine, Catheterized Urine Culture - Final Lactobacillus gasseri Strep anginosus 08/06/24 14:15 Blood Culture (Wb) - Anticubital Right Blood Culture - Final Coag Negative Staph 08/06/24 13:41 Blood Culture (Wb) - Other Bacteria Detection (PCR) - Final Staphylococcus epidermidis 08/06/24 13:41 Blood Culture (Wb) - Other Blood Culture - Final Staphylococcus epidermidis 08/08/24 08:25 Stool Stool Occult Blood (LASHAUN) - Final Occult Blood Positive 08/06/24 15:55 Mucosa - Nose Respiratory Panel (PCR) - Final 08/06/24 17:40 Urine Catheter - Catheter Legionella Antigen - Final 08/06/24 17:40 Urine Catheter - Catheter Streptococcus pneumoniae Antigen (M - Final 08/06/24 13:48 Mucosa - Nose SARS-CoV-2, Influenza & RSV (PCR) - Final Radiography Diagnostic Testing: Radiology Impression Transesophageal Echocardiogram 08/11/24 08:30 Interpretation Summary The left ventricular ejection fraction is 60 %. Normal LV size. Appendage occlusive device in place Mitral valve is well-visualized with a 1 cm mobile vegetation noted on the anterior leaflet Moderate (2+) eccentric mitral valve insufficiency. Bioprosthetic aortic valve. Ordering Physician: Carlos Peacock Referring Physician: Chiquis Santana Performed By: Lizabeth Figueredo, HAL, RVT Physical Exam Narrative Seen and examined. Patient has been sitting near the bedside. No fever or shortness of breath or chest pain. Admitted with shortness of breath and fever. MSSE on blood culture. Afebrile for last 2 to 3 days Physical exam General: Alert, Oriented x3, Cooperative HEENT: Atraumatic, PERRLA, EOMI, Normocephalic Oral: No Gingival or Mucosal Lesions/ Ulcerations Neck: Supple, No JVD, Negative Carotid Bruits Chest wall/Lungs: Air entry diminished in bilateral lung bases. No crepitation/rhonchi Cardiovascular: Regular rate, Regular Rhythm, Normal S1, Normal S2, No M/G/R Abdomen: Bowel Sounds Present, Soft, Non Tender, Non-Distended : No dysuria. No renal angle tenderness. No suprapubic tenderness. Extremities: No edema, Capillary Refill Less than 3 Seconds Skin: No rashes, No breakdown Musculoskeletal: No Tenderness to Palpation of Joints or Extremities Neurological: Cranial nerves II-XII grossly intact, DTR 2+/4. No acute focal neurological deficit. Psych/Mental Status: Normal Affect, Appropriate. Assessment & Plan Assessment/Plan (1) Fever: (2) Dyspnea: (3) Sepsis: PLAN: Plan #Staph epidermidis bacteremia * Patient feeling much better. WBC is trending downwards. Chest x-ray showed no acute cardiopulmonary pathology. * Urinalysis showed no evidence of UTI. * Urine culture growing mixed gram-positive organisms. Blood culture results however growing Staph epidermidis in 2 out of 2 samples * Leukocytosis has resolved. 08/10 * Zosyn was discontinued. IV vancomycin continued for now. With history of fever and shortness of breath, MSSE bacteremia is consulted and cannot dismiss as contaminant. ID consultation requested for further opinion. * Discontinue Zosyn and continue with IV vancomycin for now. * ID consult reviewed and appreciated. MSSE probably due to port related infection. History of TAVR and Watchman device. 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 The blood culture was repeated from port. TTE reported bioprosthetic AV valve otherwise normal mitral, tricuspid and pulmonic valve, mean AV gradient 14. Normal tricuspid valve, 2+ TR, PASP 69 mmHg. 1-2++ MR. MANA ordered. Vancomycin continued 08/11: MANA done today. Reported 1 cm mobile vegetation on anterior leaflet of mitral valve. 2+ eccentric MR. 1-2+ TR. Bioprosthetic aortic valve. Based on the discussion of ID, initially recommended transfer to tertiary care center which was discussed with the patient and her . He was not eager for transfer but probably was planning to see after / vacation as family is coming to to her house. Based on further discussion of ID, it was recommended 6 weeks of IV ertapenem through right sided upper chest port. Patient needs to see cardiac surgeon after vacation. He preferred [facility] where recently had Watchman device. Her said they do not like [facility]. IV antibiotic cefazolin changed to ertapenem. This was further discussed with the patient's daughter who is RN named Rhianna #History of heart failure preserved ejection fraction * BNP was slightly up at 367. * on lasix. #Pulmonary hypertension: On sildenafil. Patient is having some bradycardia which is likely due to the sildenafil.Will monitor # Chronic inflammatory anemia or anemia of CKD Hemoglobin is 7.8. He does appear to have chronic anemia with his baseline being between 8-10. 08/10: H&H 7.8/25%. Similar to yesterday. Iron profile shows ferritin high, serum iron low. On ferrous sulfate 3 times daily which is discontinued. IV iron one-time ordered. 08/11: Patient had EGD on 08/10. Impressions : - No gross lesions in the entire esophagus. - Medium-sized hiatal hernia. - Multiple gastric polyps. - Oozing gastric ulcer with pigmented material. Treatment not successful. Treated with a heater probe. Clips were placed. 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 - Mucosal variant in the duodenum. - No specimens collected. # CKD stage IIIb: Creatinine is around his baseline. 08/10: BUNs/creatinine /.27 better than yesterday. #History of afib * Status post Watchman procedure on 07/01/2024. * On Eliquis. * #AARTI: On CPAP nightly #History of aortic valve replacemen in 2019. 2D echo as mentioned above #History of DVT: On Eliquis. Also s/p IVC filter in 2019. #GERD: On PPI #Hypertension: on amlodipine #Obesity: BMI is 41.9. Complicates acute care, expected recovery and prognosis. DVT prophylaxis: already on eliquis Charges/Coding Addendum Addendum: Total time of the visit including total time spent in counseling or coordination of care, (more than 50% of the total time, spent in obtaining medical information from nurses and other ancillary care providers ,explaining to the patient about labs, imaging, diagnosis and management of active complex medical conditions), discussion among the consultants ID and hire car driver, for the relay of the infection to patient's and the daughter regarding diagnosis of red devil mitral valve endocarditis, prolonged antibiotic and cardiac surgeon evaluation review of labs and imaging is 35 minutes. Visit Charges Inpatient E&M: 83519 Subs Hosp L3
[2024-08-12 03:36] VITALS: BP 148/63; PULSE 58; RESP 18; TEMP 36.8; O2SAT 96
[2024-08-12 06:00] VITALS: BMI 42.5
[2024-08-12] MEDS: SILDENAFIL CITRATE 20 MG TABLET 40 MG PO ×2 (06:13→13:47)
[2024-08-12 06:14] VITALS: BP 150/65
[2024-08-12 06:39] LABS: Absolute Lymphocyte Count 0.86 X10^3/uL (0.83-4.51); Absolute Neutrophil Count 5.8 X10^3/uL (2.0-7.7); Basophil# 0.03 X10^3/uL; Basophil% 0.4 % (0-1); Eosinophil# 0.13 X10^3/uL; Eosinophils% 1.8 % (0-5); Hematocrit 26.3 % (37-47); Hemoglobin 8.5 g/dL (12.0-15.0); Lymphocyte # 0.86 X10^3/ul (0.83-4.51); Lymphocyte % 11.9 % (19-41); Mean Corp Hgb Conc 32.3 g/dL (32-36); Mean Corpuscular Hgb 30.8 pg (27.0-32.0); Mean Corpuscular Volume 95.3 fL (81-99); Monocyte# 0.38 X10^3/uL; Monocyte% 5.3 % (0-10); NRBC Flagged by Analyzer 0.3 % (0-5); Neutrophil # 5.77 X10^3/uL (2.7-7.7); Neutrophil % 80.2 % (47-70); Platelet Count 223 K/mm3 (150-450); RBC Distribution Width CV 13.2 % (11.6-14.6); RBC Distribution Width SD 45.2 fl (35.1-43.9); Red Blood Count 2.76 M/mm3 (4.2-5.4); White Blood Count 7.2 K/mm3 (4.4-11.0)
[2024-08-12 07:12] LABS: AST(SGOT) 7 U/L (15-37); Alanine Aminotransfer ALT/SGPT 13 U/L (13-56); Albumin, Serum 2.7 g/dL (3.2-5.0); Alkaline Phosphatase 80 U/L (45-117); Anion Gap 4 (5-15); BUN 17 mg/dL (7-18); BUN/Creat Ratio 15.2 RATIO (10-20); Bilirubin, Direct 0.14 mg/dL (0.00-0.30); Calcium,Total 9.1 mg/dL (8.5-10.1); Chloride 113 mmol/L (98-107); Creatinine, Serum 1.12 mg/dL (0.55-1.02); EST Glomerular Filtration Rate 50 mL/min (>60); Est Glom Filt Rate - Afr Amer 60 mL/min (>60); Estimated Creatinine Clearance 51.83 ml/min; Globulin 4.1 g/dL (2.2-4.2); Glucose 93 mg/dL (74-106); Potassium 4.1 mmol/L (3.5-5.1); Protein, Total 6.8 g/dL (6.4-8.2); Sodium Level 140 mmol/L (136-145)
[2024-08-12 07:33] VITALS: O2SAT 92
--- NOTE | 2024-08-12 08:49 | PCM.DC ---
Discharge Instructions DC O2, CPAP, BIPAP needs PSN CPAP & BiPAP: BiPAP & CPAP Settings per PSN Fraction of Inspired Oxygen ( 93 08/10/24 13:52 FIO2) Home O2 Discharge instructions: No Follow Up Care Test Results: Test results from this visit will be discussed in further detail at your follow-up appointment, if applicable. Discharge Plan Admission Admit Date/Time: 08/06/24 16:26 Attending Provider: Amanuel Lynne Primary Care Provider: Chiquis Santana Consulting Providers: Vannessa Justin; Karen Victoria; Chance Baker; Carlos Peacock Discharge Orders/Prescriptions Prescriptions: New ertapenem 1 gram recon soln 1 g IV DAILY 42 Days Qty: 42 0RF Rx Instructions: CBC and CMP weekly starting 08/18/[address] Peacock's office [phone] Continued magnesium 250 mg tablet 250 mg PO DAILY ascorbic acid (vitamin C) 500 mg capsule 500 mg PO TID cholecalciferol (vitamin D3) 50 mcg (2,000 unit) capsule 50 mcg PO DAILY Eliquis 2.5 mg tablet 2.5 mg PO BID sildenafil (pulm.hypertension) 20 mg tablet 40 mg PO TID amlodipine 10 mg tablet 10 mg PO DAILY Qty: 90 3RF furosemide 40 mg tablet 40 mg PO DAILY Qty: 90 3RF Changed pantoprazole 40 mg tablet,delayed release (DR/EC) 40 mg PO BIDCM 30 Days Qty: 60 0RF ferrous sulfate [Melissa-Time] 325 mg (65 mg iron) tablet 325 mg PO DAILY 30 Days Qty: 0 0RF Referrals / Follow Up: [facility], Outpatient Infusion Center [Other] - 08/13/24 3:00 pm Chiquis Santana, DANIELE-C [Primary Care Provider] - Disposition Disposition (needs filled in before D/C Order can be placed): Home Health Service
--- NOTE | 2024-08-12 08:55 | DS.PCM_ITS ---
Providers Date of Admission: 08/06/24 Date of Discharge: 08/12/24 Primary Care Physician: ROSALIND Johnson Consultations 08/08/24 11:20 Consult: Gastroenterology Routine Consulting Provider: Naun G[facility] Reason for Consult: acute on chronic anemia, positive FOBT EMERGENT Consult: No Notified: Yes Date Notified: 08/08/24 Time Notified: 11:20 Method of Notification: Text 08/10/24 08:20 Consult: Infectious Disease Routine Consulting Provider: Carlos Peacock Reason for Consult: MSSE Bacteremia, admitted with fever and SOB, source unclear EMERGENT Consult: No Notified: Yes Date Notified: 08/10/24 Time Notified: 08:20 Method of Notification: Text Reason For Visit: SOB, FEBRILE Diagnosis Discharge Diagnosis (1) Fever: Status: Acute Code(s): R50.9 - Fever, unspecified (2) Dyspnea: Status: Acute Code(s): R06.00 - Dyspnea, unspecified (3) Sepsis: Status: Acute Code(s): A41.9 - Sepsis, unspecified organism Plan #Staph epidermidis bacteremia * Patient feeling much better. WBC is trending downwards. Chest x-ray showed no acute cardiopulmonary pathology. * Urinalysis showed no evidence of UTI. * Urine culture growing mixed gram-positive organisms. Blood culture results however growing Staph epidermidis in 2 out of 2 samples * Leukocytosis has resolved. 08/10 * Zosyn was discontinued. IV vancomycin continued for now. With history of fever and shortness of breath, MSSE bacteremia is consulted and cannot dismiss as contaminant. ID consultation requested for further opinion. * Discontinue Zosyn and continue with IV vancomycin for now. * ID consult reviewed and appreciated. MSSE probably due to port related infection. History of TAVR and Watchman device. 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 The blood culture was repeated from port. TTE reported bioprosthetic AV valve otherwise normal mitral, tricuspid and pulmonic valve, mean AV gradient 14. Normal tricuspid valve, 2+ TR, PASP 69 mmHg. 1-2++ MR. MANA ordered. Vancomycin continued 08/11: MANA done today. Reported 1 cm mobile vegetation on anterior leaflet of mitral valve. 2+ eccentric MR. 1-2+ TR. Bioprosthetic aortic valve. Based on the discussion of ID, initially recommended transfer to tertiary care center which was discussed with the patient and her . He was not eager for transfer but probably was planning to see after / vacation as family is coming to to her house. Based on further discussion of ID, it was recommended 6 weeks of IV ertapenem through right sided upper chest port. Patient needs to see cardiac surgeon after vacation. He preferred [facility] where recently had Watchman device. Her said they do not like [facility]. IV antibiotic cefazolin changed to ertapenem. This was further discussed with the patient's daughter who is RN named Rhianna 08/12: Discharge antibiotic, ertapenem was already taken care of yesterday. Rest as mentioned above. Patient advised again to follow-up with cardiac surgeon in about 1 week involvement hospital. #History of heart failure preserved ejection fraction * BNP was slightly up at 367. * on lasix. #Pulmonary hypertension: On sildenafil. Patient is having some bradycardia which is likely due to the sildenafil.Will monitor # Chronic inflammatory anemia or anemia of CKD Hemoglobin is 7.8. He does appear to have chronic anemia with his baseline being between 8-10. 08/10: H&H 7.8/25%. Similar to yesterday. Iron profile shows ferritin high, serum iron low. On ferrous sulfate 3 times daily which is discontinued. IV iron one-time ordered. 08/11: Patient had EGD on 08/10. Impressions : - No gross lesions in the entire esophagus. - Medium-sized hiatal hernia. - Multiple gastric polyps. - Oozing gastric ulcer with pigmented material. Treatment not successful. Treated with a heater probe. Clips were placed. 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 - Mucosal variant in the duodenum. - No specimens collected. 08/12: Patient on pantoprazole 40 mg daily at home. It is increased to 40 mg twice daily. Advised to take twice daily total of 3 months for healing of gastric ulcer. Prescription of pantoprazole given. # CKD stage IIIb: Creatinine is around his baseline. 08/10: BUNs/creatinine /.27 better than yesterday. #History of afib * Status post Watchman procedure on 07/01/2024. * On Eliquis. * #AARTI: On CPAP nightly #History of aortic valve replacemen in 2019. 2D echo as mentioned above #History of DVT: On Eliquis. Also s/p IVC filter in 2019. #GERD: On PPI #Hypertension: on amlodipine #Obesity: BMI is 41.9. Complicates acute care, expected recovery and prognosis. DVT prophylaxis: already on eliquis Discharge medication reconciliation done. Discharge follow-up instructions completed. Discharge process discussed with the patient and all questions were answered to patient's satisfaction. Follow with PCP in 1 to 2 weeks Total time spent, exact 35 minutes on discharge meds reconciliation, examination, coordination of care with nurses and ancillary staff, review of imaging and blood test and discussion with the patient on follow-up instructions. Medications at Discharge Home Medications magnesium 250 mg tablet 250 mg PO DAILY SUPPLEMENT 10/09/18 cholecalciferol (vitamin D3) 50 mcg (2,000 unit) capsule 50 mcg PO DAILY supplement 08/08/23 amlodipine 10 mg tablet 10 mg PO DAILY BLOOD PRESSURE #90 tabs 12/11/23 furosemide 40 mg tablet 40 mg PO DAILY CHF #90 tabs 04/22/24 sildenafil (pulm.hypertension) 20 mg tablet 40 mg PO TID PULMONARY HTN 05/27/24 apixaban 2.5 mg tablet (Eliquis) 2.5 mg PO BID 6 weeks because of receiving a 07/22/24 ascorbic acid (vitamin C) 500 mg capsule 500 mg PO TID SUPPLEMENT 07/22/24 ertapenem 1 gram solution for injection 1 g IV DAILY 6 weeks #42 ea 08/11/24 ferrous sulfate 325 mg (65 mg iron) tablet (Melissa-Time) 325 mg PO DAILY SUPPLEMENT 30 days #0 tabs 08/12/24 pantoprazole 40 mg tablet,delayed release 40 mg PO BIDCM ACID REFLUX 30 days #60 tabs 08/12/24 Physical Exam Narrative Seen and examined Patient has been sitting near the bedside. No fever or shortness of breath or chest pain. Admitted with shortness of breath and fever. MSSE on blood culture. Afebrile for last 2 to 3 days Physical exam General: Alert, Oriented x3, Cooperative HEENT: Atraumatic, PERRLA, EOMI, Normocephalic Oral: No Gingival or Mucosal Lesions/ Ulcerations Neck: Supple, No JVD, Negative Carotid Bruits Chest wall/Lungs: Air entry diminished in bilateral lung bases. No crepitation/rhonchi Cardiovascular: Regular rate, Regular Rhythm, Normal S1, Normal S2, systolic murmur over cardiac apex Abdomen: Bowel Sounds Present, Soft, Non Tender, Non-Distended : No dysuria. No renal angle tenderness. No suprapubic tenderness. Extremities: No edema, Capillary Refill Less than 3 Seconds Skin: No rashes, No breakdown Musculoskeletal: No Tenderness to Palpation of Joints or Extremities Neurological: Cranial nerves II-XII grossly intact, DTR 2+/4. No acute focal neurological deficit. Psych/Mental Status: Normal Affect, Appropriate. Weight / BMI Weight Weight: 263 lb 3.711 oz Body Mass Index (BMI) 42.5 ABG / Lab / Microbiology Data 08/12/24 05:47 08/12/24 05:47 Laboratory: Laboratory Results - last 24 hr 08/12/24 05:47: WBC 7.2, RBC 2.76 L, Hgb 8.5 L, Hct 26.3 L, MCV 95.3, MCH 30.8, MCHC 32.3, RDW Std Deviation 45.2 H, RDW Coeff of Fariba 13.2, Plt Count 223, MPV 12.0, Immature Gran % (Auto) 0.400, Neut % (Auto) 80.2 H, Lymph % (Auto) 11.9 L, [place] % (Auto) 5.3, Eos % (Auto) 1.8, Baso % (Auto) 0.4, Absolute Neuts (auto) 5.8, Absolute Lymphs (auto) 0.86, Nucleated RBC % 0.3, Sodium 140, Potassium 4.1, Chloride 113 H, Carbon Dioxide 23.0, Anion Gap 4 L, BUN 17, Creatinine 1.12 H, Estim Creat Clear Calc 51.83, Est GFR (MDRD) Af Amer 60, Est GFR (MDRD) Non- Af 50 L, BUN/Creatinine Ratio 15.2, Glucose 93, Calcium 9.1, Total Bilirubin 0.50, Direct Bilirubin 0.14, AST 7 L, ALT 13, Alkaline Phosphatase 80, Total Protein 6.8, Albumin 2.7 L, Globulin 4.1 Microbiology: Microbiology 08/06/24 14:21 Urine, Catheterized Urine Culture - Final Lactobacillus gasseri Strep anginosus 08/06/24 14:15 Blood Culture (Wb) - Anticubital Right Blood Culture - Final Coag Negative Staph 08/06/24 13:41 Blood Culture (Wb) - Other Bacteria Detection (PCR) - Final Staphylococcus epidermidis 08/06/24 13:41 Blood Culture (Wb) - Other Blood Culture - Final Staphylococcus epidermidis 08/08/24 08:25 Stool Stool Occult Blood (LASHAUN) - Final Occult Blood Positive 08/06/24 15:55 Mucosa - Nose Respiratory Panel (PCR) - Final 08/06/24 17:40 Urine Catheter - Catheter Legionella Antigen - Final 08/06/24 17:40 Urine Catheter - Catheter Streptococcus pneumoniae Antigen (M - Final 08/06/24 13:48 Mucosa - Nose SARS-CoV-2, Influenza & RSV (PCR) - Final Radiography Diagnostic Testing: Radiology Impression Transesophageal Echocardiogram 08/11/24 08:30 Interpretation Summary The left ventricular ejection fraction is 60 %. Normal LV size. Appendage occlusive device in place Mitral valve is well-visualized with a 1 cm mobile vegetation noted on the anterior leaflet Moderate (2+) eccentric mitral valve insufficiency. Bioprosthetic aortic valve. Ordering Physician: Carlos Peacock Referring Physician: Chiquis Santana Performed By: Lizabeth Figueredo, HAL, RVT D/C Instructions DC O2, CPAP, BIPAP Needs PSN CPAP & BiPAP: BiPAP & CPAP Settings per PSN Fraction of Inspired Oxygen ( 93 08/10/24 13:52 FIO2) Home O2 Discharge instructions: No Meaningful Use Info Meaningful Use Meaningful Use Diagnoses (Choose all that apply): None applicable Ischemic Stroke Statin Dosing Therapy Reference: STATIN DOSE THERAPY REFERENCE: * Patients > 75 years receive moderate or high dose statin therapy. * Patients 75 years or YOUNGER should receive HIGH intensity statin dose unless contraindicated. You will be required to document reason for non-treatment if statin daily dose does not meet guidelines. HIGH DOSE STATIN THERAPY DAILY Atorvastatin > than or = to 40 mg Rosuvastatin > than or = to 20 mg Amlodipine + Atorvastatin > than or = to 2.5/40 mg Ezetimibe + Simvastatin 10/80 mg Simvastatin 80mg Discharge Plan Admission Admit Date/Time: 08/06/24 16:26 Attending Provider: Amanuel Lynne Primary Care Provider: Chiquis Santana Consulting Providers: Vannessa Justin; Karen Victoria; Chance Baker; Carlos Peacock Discharge Orders/Prescriptions Prescriptions: New ertapenem 1 gram recon soln 1 g IV DAILY 42 Days Qty: 42 0RF Rx Instructions: CBC and CMP weekly starting 08/18/[address] Peacock's office [phone] Continued magnesium 250 mg tablet 250 mg PO DAILY ascorbic acid (vitamin C) 500 mg capsule 500 mg PO TID cholecalciferol (vitamin D3) 50 mcg (2,000 unit) capsule 50 mcg PO DAILY Eliquis 2.5 mg tablet 2.5 mg PO BID sildenafil (pulm.hypertension) 20 mg tablet 40 mg PO TID amlodipine 10 mg tablet 10 mg PO DAILY Qty: 90 3RF furosemide 40 mg tablet 40 mg PO DAILY Qty: 90 3RF Changed pantoprazole 40 mg tablet,delayed release (DR/EC) 40 mg PO BIDCM 30 Days Qty: 60 0RF ferrous sulfate [Melissa-Time] 325 mg (65 mg iron) tablet 325 mg PO DAILY 30 Days Qty: 0 0RF Referrals / Follow Up: [facility], Outpatient Infusion Center [Other] - 08/13/24 3:00 pm Chiquis Santana, [employer] [Primary Care Provider] - Disposition Disposition (needs filled in before D/C Order can be placed): Home Health Service Charges/Coding Visit Charges Inpatient E&M: 98842 Disch Hosp >30min
[2024-08-12 09:36] VITALS: BP 132/54; PULSE 83; RESP 16; TEMP 37; O2SAT 94
[2024-08-12] MEDS: Pantoprazole Sodium 40 MG in 0.9% Normal Saline (100mL MB+) 100 ML 330 MG IV (09:44)
[2024-08-12] MEDS: Magnesium Chloride 64 MG Delay Rel.Tablet PO (09:45)
[2024-08-12] MEDS: amLODIPine 10 MG Tablet PO (09:45)
[2024-08-12] MEDS: Senna/Docusate Sodium 1 Tablet 2 TABLET PO (09:48)
[2024-08-12] MEDS: Ertapenem Sod 1 GM in 0.9% Normal Saline (50mL MB+) 50 ML IV (11:38)
[2024-08-12 11:48] VITALS: O2SAT 87; O2SAT 92
[2024-08-12 13:48] VITALS: BP 158/57; PULSE 57; RESP 16; TEMP 37.1; O2SAT 94
== END 2024-08-12 14:32 | disposition home health service (06) | DRG 314 ==
LOC: ED 15:59 → ICU 17:07 → PCU 08-08 15:17
PROVIDERS: Anesthesiology; Internal Medicine Gastroenterology; Nurse Practitioner; Student in an Organized Health Care Education/Training Program; Admitting Provider Internal Medicine; Emergency Provider Emergency Medicine; PCP Nurse Practitioner Family; Visit Provider Internal Medicine
PROC: 0DJ08ZZ Inspection of Upper Intestinal Tract, Via Natural or Artificial Opening Endoscopic (ICD-10-PCS; CPT 43235; principal; 2024-08-10 13:55)
DX: T80.211A Bloodstream infection due to central venous catheter, initial encounter (principal); K25.4 Chronic or unspecified gastric ulcer with hemorrhage; D62 Acute posthemorrhagic anemia; R78.81 Bacteremia; I13.0 Hypertensive heart and chronic kidney disease with heart failure and stage 1 through stage 4 chronic kidney disease, or unspecified chronic kidney disease; Z68.41 Body mass index [BMI] 40.0-44.9, adult; I48.11 Longstanding persistent atrial fibrillation; I50.32 Chronic diastolic (congestive) heart failure; I27.29 Other secondary pulmonary hypertension; D63.1 Anemia in chronic kidney disease; N18.32 Chronic kidney disease, stage 3b; Z95.2 Presence of prosthetic heart valve; E66.01 Morbid (severe) obesity due to excess calories; E78.5 Hyperlipidemia, unspecified; G47.33 Obstructive sleep apnea (adult) (pediatric); K21.9 Gastro-esophageal reflux disease without esophagitis; K31.7 Polyp of stomach and duodenum; K44.9 Diaphragmatic hernia without obstruction or gangrene; I25.2 Old myocardial infarction; B95.7 Other staphylococcus as the cause of diseases classified elsewhere; X58.XXXA Exposure to other specified factors, initial encounter; Z95.818 Presence of other cardiac implants and grafts; Z79.01 Long term (current) use of anticoagulants; Z79.899 Other long term (current) drug therapy; Z86.16 Personal history of COVID-19; Z86.718 Personal history of other venous thrombosis and embolism
CPT/HCPCS: 36415; 36591; 71045; 80048; 80053; 80076; 80202; 81001; 82274; 82728; 83540; 83550; 83605; 83880; 85025; 85610; 85730; 87040; 87077; 87086; 87088; 87149; 87186; 87449; 87631; 87633; 93005; 93306; 93312; 93320; 93325; 94640; 97116; 97162; 97166; 97530; 97535; 99285; A4216; J2405; J2916

== ENCOUNTER 2024-08-13 14:39 | Outpatient (CLI) | payer MEDICARE, OTHER, SELFPAY ==
[2024-08-13] MEDS: Ertapenem Sod 1 GM in 0.9% Normal Saline (50mL MB+) 50 ML IV (15:14)
[2024-08-13 15:22] VITALS: BP 151/58; PULSE 79; RESP 16; TEMP 36.1; O2SAT 96
[2024-08-13 16:20] VITALS: BP 168/48; PULSE 71; RESP 16; TEMP 36.2; O2SAT 95
== END 2024-08-13 23:59 | disposition home or self-care (01) ==
LOC: MEDOUTP 14:39
PROVIDERS: PCP Nurse Practitioner Family; Referring Provider Internal Medicine; Visit Provider Internal Medicine
DX: R78.81 Bacteremia (principal)
CPT/HCPCS: 96365; A4216

== ENCOUNTER 2024-08-14 09:52 | Outpatient (CLI) | payer MEDICARE, OTHER, SELFPAY ==
[2024-08-14 10:00] VITALS: BP 139/63; PULSE 67; RESP 16; TEMP 36.1; O2SAT 97
[2024-08-14] MEDS: Ertapenem Sod 1 GM in 0.9% Normal Saline (50mL MB+) 50 ML IV (10:08)
[2024-08-14 11:22] VITALS: BP 146/64; PULSE 91; RESP 16
== END 2024-08-14 23:59 | disposition home or self-care (01) ==
LOC: MEDOUTP 09:54
PROVIDERS: PCP Nurse Practitioner Family; Referring Provider Internal Medicine; Visit Provider Internal Medicine
DX: R78.81 Bacteremia (principal)
CPT/HCPCS: 96365; A4216

== ENCOUNTER 2024-08-15 09:49 | Outpatient (CLI) | payer MEDICARE, OTHER, SELFPAY ==
[2024-08-15 10:32] VITALS: BP 155/65; PULSE 61; RESP 18; TEMP 36.3; O2SAT 100
[2024-08-15] MEDS: 0.9% Normal Saline (100mL Bag) 100 ML 15 ML IV (10:40)
[2024-08-15] MEDS: Ertapenem Sod 1 GM in 0.9% Normal Saline (50mL MB+) 50 ML IV (11:07)
[2024-08-15] MEDS: 0.9% Saline Lock 10 ML Syringe IV (11:42)
== END 2024-08-15 12:02 | disposition home or self-care (01) ==
LOC: MEDOUTP 09:54 → MS3 09:56
PROVIDERS: PCP Nurse Practitioner Family; Referring Provider Internal Medicine; Visit Provider Internal Medicine
DX: R78.81 Bacteremia (principal)
CPT/HCPCS: 96365; A4216

== ENCOUNTER 2024-08-16 09:48 | Outpatient (CLI) | payer MEDICARE, OTHER, SELFPAY ==
[2024-08-16 10:29] VITALS: BP 172/57; PULSE 70; RESP 16; TEMP 36.5; O2SAT 98
[2024-08-16] MEDS: Ertapenem Sod 1 GM in 0.9% Normal Saline (50mL MB+) 50 ML IV (10:35)
== END 2024-08-16 11:16 | disposition home or self-care (01) ==
LOC: MEDOUTP 09:49 → MS3 09:53
PROVIDERS: PCP Nurse Practitioner Family; Referring Provider Internal Medicine; Visit Provider Internal Medicine
DX: R78.81 Bacteremia (principal)
CPT/HCPCS: 96365

== ENCOUNTER 2024-08-17 10:23 | Outpatient (CLI) | payer MEDICARE, OTHER, SELFPAY ==
[2024-08-17 10:32] VITALS: BP 124/41; PULSE 72; RESP 16; TEMP 35.9; O2SAT 98
[2024-08-17] MEDS: Ertapenem Sod 1 GM in 0.9% Normal Saline (50mL MB+) 50 ML IV (10:40)
[2024-08-17 11:42] VITALS: BP 127/52; PULSE 61; RESP 16; TEMP 36.4; O2SAT 99
== END 2024-08-17 23:59 | disposition home or self-care (01) ==
LOC: MEDOUTP 10:23
PROVIDERS: PCP Nurse Practitioner Family; Referring Provider Internal Medicine; Visit Provider Internal Medicine
DX: R78.81 Bacteremia (principal)
CPT/HCPCS: 96365; A4216

== ENCOUNTER 2024-08-18 10:40 | Outpatient (CLI) | payer MEDICARE, OTHER, SELFPAY ==
[2024-08-18 10:51] VITALS: BP 160/45; PULSE 64; RESP 16; TEMP 36.2; O2SAT 98
[2024-08-18 11:11] LABS: Hematocrit 27.8 % (37-47); Hemoglobin 8.7 g/dL (12.0-15.0); Mean Corp Hgb Conc 31.3 g/dL (32-36); Mean Corpuscular Volume 95.9 fL (81-99); Mean Platelet Vol. 11.2 fl (6.2-12.0); Platelet Count 226 K/mm3 (150-450); RBC Distribution Width CV 13.7 % (11.6-14.6); White Blood Count 7.4 K/mm3 (4.4-11.0)
[2024-08-18] MEDS: Ertapenem Sod 1 GM in 0.9% Normal Saline (50mL MB+) 50 ML IV (11:13)
[2024-08-18 11:33] LABS: ALB/GLOB Ratio 0.7 RATIO (0.9-2.4); AST(SGOT) 11 U/L (15-37); Alanine Aminotransfer ALT/SGPT 12 U/L (13-56); Albumin, Serum 3.2 g/dL (3.2-5.0); Alkaline Phosphatase 85 U/L (45-117); Anion Gap 7 (5-15); BUN 24 mg/dL (7-18); BUN/Creat Ratio 17.4 RATIO (10-20); Calcium,Total 9.1 mg/dL (8.5-10.1); Chloride 111 mmol/L (98-107); Creatinine, Serum 1.38 mg/dL (0.55-1.02); EST Glomerular Filtration Rate 39 mL/min (>60); Est Glom Filt Rate - Afr Amer 47 mL/min (>60); Globulin 4.3 g/dL (2.2-4.2); Glucose 136 mg/dL (74-106); Potassium 3.8 mmol/L (3.5-5.1); Protein, Total 7.5 g/dL (6.4-8.2); Sodium Level 141 mmol/L (136-145)
[2024-08-18 12:10] VITALS: BP 160/55; PULSE 56; RESP 16; TEMP 36
== END 2024-08-18 23:59 | disposition home or self-care (01) ==
PROVIDERS: PCP Nurse Practitioner Family; Referring Provider Internal Medicine; Visit Provider Internal Medicine
DX: R78.81 Bacteremia (principal)
CPT/HCPCS: 96365; 36591; 80053; 85027; A4216

== ENCOUNTER 2024-08-19 09:48 | Outpatient (CLI) | payer MEDICARE, OTHER, SELFPAY ==
[2024-08-19 10:10] VITALS: BP 138/56; PULSE 74; RESP 18; TEMP 36.6; O2SAT 100
[2024-08-19] MEDS: Ertapenem Sod 1 GM in 0.9% Normal Saline (50mL MB+) 50 ML IV (10:28)
[2024-08-19] MEDS: 0.9% Normal Saline (100mL Bag) 100 ML 15 ML IV (10:31)
[2024-08-19] MEDS: 0.9% Saline Lock 10 ML Syringe IV ×2 (10:31→11:06)
[2024-08-19 11:05] VITALS: BP 149/54; PULSE 67; RESP 18; TEMP 36.4; O2SAT 99
== END 2024-08-19 11:10 | disposition home or self-care (01) ==
LOC: MEDOUTP 09:48 → ICU 09:59
PROVIDERS: PCP Nurse Practitioner Family; Referring Provider Internal Medicine; Visit Provider Internal Medicine
DX: R78.81 Bacteremia (principal)
CPT/HCPCS: 96365; A4216

== ENCOUNTER 2024-08-20 09:43 | Outpatient (CLI) | payer MEDICARE, OTHER, SELFPAY ==
[2024-08-20 10:04] VITALS: BP 151/58; PULSE 68; RESP 14; TEMP 36.3; O2SAT 99
[2024-08-20] MEDS: Ertapenem Sod 1 GM in 0.9% Normal Saline (50mL MB+) 50 ML IV (10:07)
[2024-08-20 11:09] VITALS: BP 147/31; PULSE 61; RESP 14; TEMP 35.8; O2SAT 97
== END 2024-08-20 23:59 | disposition home or self-care (01) ==
PROVIDERS: PCP Nurse Practitioner Family; Referring Provider Internal Medicine; Visit Provider Internal Medicine
DX: R78.81 Bacteremia (principal)
CPT/HCPCS: 96365; A4216

== ENCOUNTER 2024-08-22 09:51 | Outpatient (CLI) | payer MEDICARE, OTHER, SELFPAY ==
[2024-08-22 10:06] VITALS: BP 154/56; PULSE 66
[2024-08-22] MEDS: Ertapenem Sod 1 GM in 0.9% Normal Saline (50mL MB+) 50 ML IV (10:43)
== END 2024-08-22 11:20 | disposition home or self-care (01) ==
LOC: MEDOUTP 09:52 → PCU 09:54
PROVIDERS: PCP Nurse Practitioner Family; Referring Provider Internal Medicine; Visit Provider Internal Medicine
DX: R78.81 Bacteremia (principal)
CPT/HCPCS: 96365

== ENCOUNTER 2024-08-23 10:00 | Outpatient (CLI) | payer MEDICARE, OTHER, SELFPAY ==
[2024-08-23 10:00] VITALS: BP 156/42; PULSE 67; RESP 16; TEMP 36.4; O2SAT 98
[2024-08-23] MEDS: Ertapenem Sod 1 GM in 0.9% Normal Saline (50mL MB+) 50 ML IV (10:09)
[2024-08-23 11:02] VITALS: BP 158/56; PULSE 68; RESP 16; TEMP 36.6
== END 2024-08-23 23:59 | disposition home or self-care (01) ==
LOC: MEDOUTP 10:00
PROVIDERS: PCP Nurse Practitioner Family; Referring Provider Internal Medicine; Visit Provider Internal Medicine
DX: R78.81 Bacteremia (principal)
CPT/HCPCS: 96365; A4216

== ENCOUNTER 2024-08-24 10:31 | Outpatient (CLI) | payer MEDICARE, OTHER, SELFPAY ==
[2024-08-24 11:03] VITALS: BP 140/46; PULSE 73; RESP 16; TEMP 35.9; O2SAT 96
[2024-08-24] MEDS: Ertapenem Sod 1 GM in 0.9% Normal Saline (50mL MB+) 50 ML IV (11:03)
[2024-08-24 12:10] VITALS: BP 147/49; PULSE 69; RESP 16; TEMP 36.1; O2SAT 98
== END 2024-08-24 23:59 | disposition home or self-care (01) ==
LOC: MEDOUTP 10:31
PROVIDERS: PCP Nurse Practitioner Family; Referring Provider Internal Medicine; Visit Provider Internal Medicine
DX: R78.81 Bacteremia (principal)
CPT/HCPCS: 96365; A4216

== ENCOUNTER 2024-08-25 10:13 | Outpatient (CLI) | payer MEDICARE, OTHER, SELFPAY ==
[2024-08-21 10:00] VITALS: BP 157/51; PULSE 63; RESP 16; TEMP 36.4; O2SAT 97
[2024-08-21] MEDS: Ertapenem Sod 1 GM in 0.9% Normal Saline (50mL MB+) 50 ML IV (10:17)
[2024-08-21 11:02] VITALS: BP 166/58; PULSE 57; RESP 16; TEMP 36.4; O2SAT 95
[2024-08-25 10:30] VITALS: BP 150/41; PULSE 52; RESP 16; TEMP 36.7; O2SAT 99
[2024-08-25] MEDS: Ertapenem Sod 1 GM in 0.9% Normal Saline (50mL MB+) 50 ML IV (10:43)
[2024-08-25 11:09] LABS: Basophil# 0.05 X10^3/uL; Basophil% 0.8 % (0-1); Eosinophil# 0.14 X10^3/uL; Eosinophils% 2.2 % (0-5); Hematocrit 27.5 % (37-47); Hemoglobin 8.3 g/dL (12.0-15.0); Lymphocyte % 14.2 % (19-41); Mean Corp Hgb Conc 30.2 g/dL (32-36); Mean Corpuscular Hgb 29.5 pg (27.0-32.0); Mean Corpuscular Volume 97.9 fL (81-99); Mean Platelet Vol. 12.6 fl (6.2-12.0); Monocyte# 0.25 X10^3/uL; Monocyte% 3.9 % (0-10); NRBC Flagged by Analyzer 0 % (0-5); Neutrophil % 78.6 % (47-70); Platelet Count 201 K/mm3 (150-450); RBC Distribution Width CV 14.3 % (11.6-14.6); RBC Distribution Width SD 51.7 fl (35.1-43.9); RET-HE 30.3 pg (30-35); Red Blood Count 2.81 M/mm3 (4.2-5.4); Reticulocyte Count 1.88 % (0.5-1.5); White Blood Count 6.4 K/mm3 (4.4-11.0)
[2024-08-25 11:25] LABS: ALB/GLOB Ratio 0.8 RATIO (0.9-2.4); AST(SGOT) 15 U/L (15-37); Alanine Aminotransfer ALT/SGPT 20 U/L (13-56); Albumin, Serum 3.3 g/dL (3.2-5.0); Alkaline Phosphatase 94 U/L (45-117); Anion Gap 5 (5-15); BUN 31 mg/dL (7-18); BUN/Creat Ratio 19.4 RATIO (10-20); Calcium,Total 8.9 mg/dL (8.5-10.1); Chloride 110 mmol/L (98-107); EST Glomerular Filtration Rate 33 mL/min (>60); Est Glom Filt Rate - Afr Amer 40 mL/min (>60); Ferritin 577 ng/mL (8-252); Globulin 4.2 g/dL (2.2-4.2); Glucose 123 mg/dL (74-106); Iron 42 ug/dL (50-170); Iron Binding Capacity,Total 222 ug/dL (250-450); PERCENT IRON SATURATION 18.9 % (15.0-55.0); Protein, Total 7.5 g/dL (6.4-8.2); Sodium Level 142 mmol/L (136-145)
[2024-08-25 11:51] VITALS: BP 145/53; PULSE 75; RESP 16; TEMP 36.9; O2SAT 100
[2024-08-25 18:59] LABS: Xtra Tube EP Lab EXTRA TUBE
== END 2024-08-25 23:59 | disposition home or self-care (01) ==
LOC: MEDOUTP 10:14
PROVIDERS: Internal Medicine Hematology & Oncology; PCP Nurse Practitioner Family; Referring Provider Internal Medicine; Visit Provider Internal Medicine
DX: R78.81 Bacteremia (principal); N18.32 Chronic kidney disease, stage 3b; D50.0 Iron deficiency anemia secondary to blood loss (chronic); D63.1 Anemia in chronic kidney disease
CPT/HCPCS: 96365 ×4; 80053; 82728; 83540; 83550; 85025; 85045; A4216

== ENCOUNTER 2024-08-26 10:21 | Outpatient (CLI) | payer MEDICARE, OTHER, SELFPAY ==
[2024-08-26 10:26] VITALS: BP 169/99; PULSE 66; RESP 14; TEMP 36.1; O2SAT 97; BMI 40.3
[2024-08-26] MEDS: Ertapenem Sod 1 GM in 0.9% Normal Saline (50mL MB+) 50 ML IV (10:31)
== END 2024-08-26 23:59 | disposition home or self-care (01) ==
LOC: MEDOUTP 10:21
PROVIDERS: PCP Nurse Practitioner Family; Referring Provider Internal Medicine; Visit Provider Internal Medicine
DX: R78.81 Bacteremia (principal)
CPT/HCPCS: 96365; A4216

== ENCOUNTER 2024-08-27 10:19 | Outpatient (CLI) | payer MEDICARE, OTHER, SELFPAY ==
[2024-08-27 10:46] VITALS: BP 141/60; PULSE 63; RESP 16; TEMP 36.3; O2SAT 98; BMI 41.9
[2024-08-27] MEDS: Ertapenem Sod 1 GM in 0.9% Normal Saline (50mL MB+) 50 ML IV (10:54)
[2024-08-27 11:59] VITALS: BP 148/49; PULSE 56; RESP 16; TEMP 36.2; O2SAT 98
== END 2024-08-27 23:59 | disposition home or self-care (01) ==
LOC: MEDOUTP 10:19
PROVIDERS: PCP Nurse Practitioner Family; Referring Provider Internal Medicine; Visit Provider Internal Medicine
DX: R78.81 Bacteremia (principal)
CPT/HCPCS: 96365; A4216

== ENCOUNTER 2024-08-28 10:28 | Outpatient (CLI) | payer MEDICARE, OTHER, SELFPAY ==
[2024-08-28 10:42] VITALS: BP 157/37; PULSE 60; RESP 16; TEMP 36.1; O2SAT 95
[2024-08-28] MEDS: Ertapenem Sod 1 GM in 0.9% Normal Saline (50mL MB+) 50 ML IV (10:50)
[2024-08-28 11:52] VITALS: BP 147/34; PULSE 53; RESP 16; O2SAT 96
== END 2024-08-28 23:59 | disposition home or self-care (01) ==
PROVIDERS: PCP Nurse Practitioner Family; Referring Provider Internal Medicine; Visit Provider Internal Medicine
DX: R78.81 Bacteremia (principal)
CPT/HCPCS: 96365; A4216

== ENCOUNTER 2024-08-29 10:19 | Outpatient (CLI) | payer MEDICARE, OTHER, SELFPAY ==
[2024-08-29 11:08] VITALS: BP 164/56; PULSE 61; RESP 18; TEMP 36.4; O2SAT 99
[2024-08-29] MEDS: 0.9% Normal Saline (100mL Bag) 100 ML 15 ML IV (11:09)
[2024-08-29] MEDS: Ertapenem Sod 1 GM in 0.9% Normal Saline (50mL MB+) 50 ML IV (11:10)
[2024-08-29] MEDS: 0.9 % NaCl (Sterile) Posiflush 10 mL IV ×2 (11:13→12:03)
[2024-08-29 12:00] VITALS: BP 163/82; PULSE 70; RESP 18; TEMP 36.3; O2SAT 96
== END 2024-08-29 12:05 | disposition home or self-care (01) ==
LOC: MEDOUTP 10:22 → ICU 10:23
PROVIDERS: PCP Nurse Practitioner Family; Referring Provider Internal Medicine; Visit Provider Internal Medicine
DX: R78.81 Bacteremia (principal)
CPT/HCPCS: 96365

== ENCOUNTER 2024-08-30 10:31 | Outpatient (CLI) | payer MEDICARE, OTHER, SELFPAY ==
[2024-08-30] MEDS: Ertapenem Sod 1 GM in 0.9% Normal Saline (50mL MB+) 50 ML IV (10:38)
[2024-08-30 10:42] VITALS: BP 129/45; PULSE 85; RESP 16; TEMP 36.4; O2SAT 97
[2024-08-30] MEDS: 0.9% Saline Lock 10 ML Syringe IV (11:29)
== END 2024-08-30 11:40 | disposition home or self-care (01) ==
LOC: MEDOUTP 10:31 → MS3 10:32
PROVIDERS: PCP Nurse Practitioner Family; Referring Provider Internal Medicine; Visit Provider Internal Medicine
DX: R78.81 Bacteremia (principal)
CPT/HCPCS: 96365; A4216

== ENCOUNTER 2024-08-31 10:17 | Outpatient (CLI) | payer MEDICARE, OTHER, SELFPAY ==
[2024-08-31 10:28] VITALS: BP 162/47; PULSE 75; RESP 16; TEMP 36.1; O2SAT 97
[2024-08-31] MEDS: Ertapenem Sod 1 GM in 0.9% Normal Saline (50mL MB+) 50 ML IV (10:35)
[2024-08-31 11:35] VITALS: BP 155/59; PULSE 57; RESP 14; TEMP 35.9; O2SAT 96
== END 2024-08-31 23:59 | disposition home or self-care (01) ==
LOC: MEDOUTP 10:17
PROVIDERS: PCP Nurse Practitioner Family; Referring Provider Internal Medicine; Visit Provider Internal Medicine
DX: R78.81 Bacteremia (principal)
CPT/HCPCS: 96365; A4216

== ENCOUNTER 2024-09-01 10:11 | Outpatient (CLI) | payer MEDICARE, OTHER, SELFPAY ==
[2024-09-01] MEDS: Ertapenem Sod 1 GM in 0.9% Normal Saline (50mL MB+) 50 ML IV (10:24)
[2024-09-01 10:27] VITALS: BP 165/44; PULSE 72; RESP 16; TEMP 35.9; O2SAT 98; BMI 41.1
[2024-09-01 10:43] LABS: Hematocrit 27.7 % (37-47); Hemoglobin 8.5 g/dL (12.0-15.0); Mean Corp Hgb Conc 30.7 g/dL (32-36); Mean Corpuscular Hgb 30.2 pg (27.0-32.0); Mean Corpuscular Volume 98.6 fL (81-99); Mean Platelet Vol. 12.2 fl (6.2-12.0); Platelet Count 207 K/mm3 (150-450); RBC Distribution Width CV 14.6 % (11.6-14.6); RBC Distribution Width SD 52.1 fl (35.1-43.9); Red Blood Count 2.81 M/mm3 (4.2-5.4); White Blood Count 5.7 K/mm3 (4.4-11.0)
[2024-09-01 10:58] LABS: ALB/GLOB Ratio 0.8 RATIO (0.9-2.4); AST(SGOT) 18 U/L (15-37); Alanine Aminotransfer ALT/SGPT 24 U/L (13-56); Albumin, Serum 3.4 g/dL (3.2-5.0); Alkaline Phosphatase 108 U/L (45-117); Anion Gap 4 (5-15); BUN 35 mg/dL (7-18); BUN/Creat Ratio 20.8 RATIO (10-20); Calcium,Total 8.9 mg/dL (8.5-10.1); Chloride 108 mmol/L (98-107); Creatinine, Serum 1.68 mg/dL (0.55-1.02); EST Glomerular Filtration Rate 31 mL/min (>60); Est Glom Filt Rate - Afr Amer 38 mL/min (>60); Estimated Creatinine Clearance 33.93 ml/min; Glucose 133 mg/dL (74-106); Protein, Total 7.4 g/dL (6.4-8.2); Sodium Level 139 mmol/L (136-145)
[2024-09-01 11:24] VITALS: BP 158/56; PULSE 62; RESP 14; TEMP 35.8; O2SAT 97
== END 2024-09-01 23:59 | disposition home or self-care (01) ==
LOC: MEDOUTP 10:12
PROVIDERS: PCP Nurse Practitioner Family; Referring Provider Internal Medicine Infectious Disease; Visit Provider Internal Medicine Infectious Disease
DX: R78.81 Bacteremia (principal)
CPT/HCPCS: 96365; 36591; 80053; 85027; A4216

== ENCOUNTER 2024-09-02 10:19 | Outpatient (CLI) | payer MEDICARE, OTHER, SELFPAY ==
[2024-09-02 10:36] VITALS: BP 169/44; PULSE 68; RESP 16; TEMP 36.6; O2SAT 95
[2024-09-02] MEDS: Ertapenem Sod 1 GM in 0.9% Normal Saline (50mL MB+) 50 ML IV (10:40)
[2024-09-02 11:47] VITALS: BP 152/49; PULSE 60; RESP 14; TEMP 36.7; O2SAT 94
== END 2024-09-02 23:59 | disposition home or self-care (01) ==
LOC: MEDOUTP 10:19
PROVIDERS: PCP Nurse Practitioner Family; Referring Provider Internal Medicine; Visit Provider Internal Medicine
DX: R78.81 Bacteremia (principal)
CPT/HCPCS: 96365; A4216

== ENCOUNTER 2024-09-03 09:41 | Outpatient (CLI) | payer MEDICARE, OTHER, SELFPAY ==
[2024-09-03 09:54] VITALS: BP 158/81; PULSE 70; RESP 16; TEMP 36.6; O2SAT 97
[2024-09-03] MEDS: Ertapenem Sod 1 GM in 0.9% Normal Saline (50mL MB+) 50 ML IV (10:14)
[2024-09-03 11:16] VITALS: BP 157/41; PULSE 60; RESP 16
== END 2024-09-03 23:59 | disposition home or self-care (01) ==
LOC: MEDOUTP 09:42
PROVIDERS: PCP Nurse Practitioner Family; Referring Provider Internal Medicine; Visit Provider Internal Medicine
DX: R78.81 Bacteremia (principal)
CPT/HCPCS: 96365

== ENCOUNTER 2024-09-04 10:24 | Outpatient (CLI) | payer MEDICARE, OTHER, SELFPAY ==
[2024-09-04] MEDS: Ertapenem Sod 1 GM in 0.9% Normal Saline (50mL MB+) 50 ML IV (10:42)
[2024-09-04 10:44] VITALS: BP 150/46; PULSE 62; RESP 16; TEMP 36.8; O2SAT 98
[2024-09-04 11:42] VITALS: BP 143/51; PULSE 57; RESP 16; TEMP 36.8; O2SAT 94
== END 2024-09-04 23:59 | disposition home or self-care (01) ==
LOC: MEDOUTP 10:24
PROVIDERS: PCP Nurse Practitioner Family; Referring Provider Internal Medicine; Visit Provider Internal Medicine
DX: R78.81 Bacteremia (principal)
CPT/HCPCS: 96365; A4216

== ENCOUNTER 2024-09-05 10:08 | Outpatient (CLI) | payer MEDICARE, OTHER, SELFPAY ==
[2024-09-05] MEDS: Ertapenem Sod 1 GM in 0.9% Normal Saline (50mL MB+) 50 ML IV (10:09)
[2024-09-05 10:20] VITALS: BP 146/53; PULSE 57; RESP 17; TEMP 36.4; O2SAT 97
== END 2024-09-05 11:05 | disposition home or self-care (01) ==
LOC: MEDOUTP 10:09 → MS3 10:11
PROVIDERS: PCP Nurse Practitioner Family; Referring Provider Internal Medicine; Visit Provider Internal Medicine
DX: R78.81 Bacteremia (principal)
CPT/HCPCS: 96365

== ENCOUNTER 2024-09-06 09:37 | Outpatient (CLI) | payer MEDICARE, OTHER, SELFPAY ==
[2024-09-06 09:48] VITALS: BP 157/62; PULSE 62; RESP 18; TEMP 36.4; O2SAT 98
[2024-09-06] MEDS: Ertapenem Sod 1 GM in 0.9% Normal Saline (50mL MB+) 50 ML IV (09:53)
== END 2024-09-06 10:57 | disposition home or self-care (01) ==
LOC: MEDOUTP 09:37 → MS3 09:43
PROVIDERS: PCP Nurse Practitioner Family; Referring Provider Internal Medicine; Visit Provider Internal Medicine
DX: R78.81 Bacteremia (principal)

== ENCOUNTER 2024-09-07 09:38 | Outpatient (CLI) | payer MEDICARE, OTHER, SELFPAY ==
[2024-09-07 09:47] VITALS: BP 165/55; PULSE 60; RESP 16; TEMP 35.9; O2SAT 99; BMI 41.1
[2024-09-07] MEDS: Ertapenem Sod 1 GM in 0.9% Normal Saline (50mL MB+) 50 ML IV (10:15)
[2024-09-07 11:16] VITALS: BP 159/57; PULSE 58; RESP 16
== END 2024-09-07 23:59 | disposition home or self-care (01) ==
LOC: MEDOUTP 09:38
PROVIDERS: PCP Nurse Practitioner Family; Referring Provider Internal Medicine; Visit Provider Internal Medicine
DX: R78.81 Bacteremia (principal)
CPT/HCPCS: 96365; A4216

== ENCOUNTER 2024-09-08 10:21 | Outpatient (CLI) | payer MEDICARE, OTHER, SELFPAY ==
[2024-09-08 10:34] VITALS: BP 178/45; PULSE 74; RESP 14; TEMP 35.9; O2SAT 94; BMI 41.1
[2024-09-08 10:42] LABS: Hematocrit 28.8 % (37-47); Hemoglobin 8.9 g/dL (12.0-15.0); Mean Corp Hgb Conc 30.9 g/dL (32-36); Mean Platelet Vol. 11.1 fl (6.2-12.0); Platelet Count 182 K/mm3 (150-450); RBC Distribution Width CV 14.4 % (11.6-14.6); RBC Distribution Width SD 50.8 fl (35.1-43.9); Red Blood Count 2.97 M/mm3 (4.2-5.4); White Blood Count 5.7 K/mm3 (4.4-11.0)
[2024-09-08] MEDS: Ertapenem Sod 1 GM in 0.9% Normal Saline (50mL MB+) 50 ML IV (10:47)
[2024-09-08 10:57] LABS: ALB/GLOB Ratio 0.8 RATIO (0.9-2.4); AST(SGOT) 23 U/L (15-37); Alanine Aminotransfer ALT/SGPT 26 U/L (13-56); Albumin, Serum 3.5 g/dL (3.2-5.0); Alkaline Phosphatase 132 U/L (45-117); Anion Gap 6 (5-15); BUN 39 mg/dL (7-18); Calcium,Total 9.1 mg/dL (8.5-10.1); Chloride 109 mmol/L (98-107); Creatinine, Serum 1.56 mg/dL (0.55-1.02); EST Glomerular Filtration Rate 34 mL/min (>60); Est Glom Filt Rate - Afr Amer 41 mL/min (>60); Estimated Creatinine Clearance 36.54 ml/min; Globulin 4.2 g/dL (2.2-4.2); Glucose 128 mg/dL (74-106); Potassium 4.1 mmol/L (3.5-5.1); Protein, Total 7.7 g/dL (6.4-8.2); Sodium Level 142 mmol/L (136-145)
[2024-09-08 11:46] VITALS: BP 148/57; PULSE 56; RESP 14; TEMP 36.1; O2SAT 96
[2024-09-09 10:09] LABS: Ferritin 469 ng/mL (8-252); Iron 39 ug/dL (50-170); Iron Binding Capacity,Total 225 ug/dL (250-450); PERCENT IRON SATURATION 17.3 % (15.0-55.0)
[2024-09-09 10:42] LABS: Absolute Lymphocyte Count 0.74 X10^3/uL (0.83-4.51); Absolute Neutrophil Count 4.5 X10^3/uL (2.0-7.7); Basophil# 0.06 X10^3/uL; Eosinophil# 0.16 X10^3/uL; Eosinophils% 2.8 % (0-5); Lymphocyte # 0.74 X10^3/ul (0.83-4.51); Lymphocyte % 12.8 % (19-41); Monocyte# 0.32 X10^3/uL; Monocyte% 5.5 % (0-10); NRBC Flagged by Analyzer 0 % (0-5); Neutrophil % 77.7 % (47-70); Platelet Count 176 K/mm3 (150-450); RET-HE 30.1 pg (30-35); Reticulocyte Count 1.84 % (0.5-1.5)
== END 2024-09-08 23:59 | disposition home or self-care (01) ==
LOC: MEDOUTP 10:21
PROVIDERS: Internal Medicine Hematology & Oncology; PCP Nurse Practitioner Family; Referring Provider Internal Medicine Infectious Disease; Visit Provider Internal Medicine Infectious Disease
DX: R78.81 Bacteremia (principal); N18.32 Chronic kidney disease, stage 3b; D50.0 Iron deficiency anemia secondary to blood loss (chronic); D63.1 Anemia in chronic kidney disease
CPT/HCPCS: 96365; 80053; 82728; 83540; 83550; 85025; 85027; 85045; A4216

== ENCOUNTER 2024-09-09 10:20 | Outpatient (CLI) | payer MEDICARE, OTHER, SELFPAY ==
[2024-09-09] MEDS: Ertapenem Sod 1 GM in 0.9% Normal Saline (50mL MB+) 50 ML IV (10:43)
[2024-09-09 10:44] VITALS: BP 155/51; PULSE 50; RESP 16; O2SAT 98
[2024-09-09 11:49] VITALS: BP 145/48; PULSE 52; RESP 16; O2SAT 98
== END 2024-09-09 23:59 | disposition home or self-care (01) ==
LOC: MEDOUTP 10:20
PROVIDERS: PCP Nurse Practitioner Family; Referring Provider Internal Medicine; Visit Provider Internal Medicine
DX: R78.81 Bacteremia (principal)
CPT/HCPCS: 96365; A4216

== ENCOUNTER 2024-09-10 09:46 | Outpatient (CLI) | payer MEDICARE, OTHER, SELFPAY ==
[2024-09-10 09:58] VITALS: BP 176/56; PULSE 70; RESP 14; TEMP 36.1; O2SAT 98; BMI 41.9
[2024-09-10] MEDS: Ertapenem Sod 1 GM in 0.9% Normal Saline (50mL MB+) 50 ML IV (10:03)
== END 2024-09-10 23:59 | disposition home or self-care (01) ==
PROVIDERS: PCP Nurse Practitioner Family; Referring Provider Internal Medicine; Visit Provider Internal Medicine
DX: R78.81 Bacteremia (principal)
CPT/HCPCS: 96365

== ENCOUNTER 2024-09-11 09:56 | Outpatient (CLI) | payer MEDICARE, OTHER, SELFPAY ==
[2024-09-11 10:15] VITALS: BP 148/44; PULSE 61; RESP 16; TEMP 36; O2SAT 97
[2024-09-11] MEDS: Ertapenem Sod 1 GM in 0.9% Normal Saline (50mL MB+) 50 ML IV (10:17)
[2024-09-11 11:11] VITALS: BP 138/50; PULSE 62; RESP 16; TEMP 36.1; O2SAT 98
== END 2024-09-11 23:59 | disposition home or self-care (01) ==
LOC: MEDOUTP 09:56
PROVIDERS: PCP Nurse Practitioner Family; Referring Provider Internal Medicine; Visit Provider Internal Medicine
DX: R78.81 Bacteremia (principal)
CPT/HCPCS: 96365; A4216

== ENCOUNTER 2024-09-12 10:21 | Outpatient (CLI) | payer MEDICARE, OTHER, SELFPAY ==
[2024-09-12] MEDS: 0.9% Saline Lock 10 ML Syringe IV (10:40)
[2024-09-12] MEDS: Ertapenem Sod 1 GM in 0.9% Normal Saline (50mL MB+) 50 ML IV (10:40)
[2024-09-12] MEDS: 0.9% Normal Saline (100mL Bag) 100 ML 15 ML IV (10:40)
[2024-09-12 10:42] VITALS: BP 174/53; PULSE 53; RESP 18; TEMP 36.6; O2SAT 98
[2024-09-12 11:25] VITALS: BP 158/66; PULSE 56; RESP 18; TEMP 36.7; O2SAT 99
== END 2024-09-12 11:25 | disposition home or self-care (01) ==
LOC: MEDOUTP 10:23 → MS3 10:24
PROVIDERS: PCP Nurse Practitioner Family; Referring Provider Internal Medicine; Visit Provider Internal Medicine
DX: R78.81 Bacteremia (principal)
CPT/HCPCS: 96365; A4216

== ENCOUNTER 2024-09-13 10:41 | Outpatient (CLI) | payer MEDICARE, OTHER, SELFPAY ==
[2024-09-13 10:37] VITALS: BP 153/56; PULSE 56; RESP 18; TEMP 36.7; O2SAT 99
[2024-09-13] MEDS: 0.9% Saline Lock 10 ML Syringe IV ×2 (10:41→11:24)
[2024-09-13] MEDS: 0.9% Normal Saline (100mL Bag) 100 ML 15 ML IV (10:41)
[2024-09-13] MEDS: Ertapenem Sod 1 GM in 0.9% Normal Saline (50mL MB+) 50 ML IV (10:41)
[2024-09-13 11:23] VITALS: BP 148/45; PULSE 56; RESP 18; TEMP 36.6; O2SAT 99
== END 2024-09-13 11:29 | disposition home or self-care (01) ==
LOC: MEDOUTP 10:41 → MS3 10:42
PROVIDERS: PCP Nurse Practitioner Family; Referring Provider Internal Medicine; Visit Provider Internal Medicine
DX: R78.81 Bacteremia (principal)
CPT/HCPCS: 96365; A4216

== ENCOUNTER 2024-09-14 10:20 | Outpatient (CLI) | payer MEDICARE, OTHER, SELFPAY ==
[2024-09-14] MEDS: Ertapenem Sod 1 GM in 0.9% Normal Saline (50mL MB+) 50 ML IV (10:28)
[2024-09-14 10:30] VITALS: BP 156/48; PULSE 55; RESP 16; TEMP 36; O2SAT 97
[2024-09-14 11:31] VITALS: BP 153/47; PULSE 51; RESP 16; TEMP 36.1
== END 2024-09-14 23:59 | disposition home or self-care (01) ==
LOC: MEDOUTP 10:20
PROVIDERS: PCP Nurse Practitioner Family; Referring Provider Internal Medicine; Visit Provider Internal Medicine
DX: R78.81 Bacteremia (principal)
CPT/HCPCS: 96365; A4216

== ENCOUNTER 2024-09-15 10:17 | Outpatient (CLI) | payer MEDICARE, OTHER, SELFPAY ==
[2024-09-15 10:30] VITALS: BP 158/44; PULSE 54; RESP 16; TEMP 36.4; O2SAT 98
[2024-09-15] MEDS: Ertapenem Sod 1 GM in 0.9% Normal Saline (50mL MB+) 50 ML IV (10:34)
[2024-09-15 10:50] LABS: Hematocrit 29.5 % (37-47); Hemoglobin 9.6 g/dL (12.0-15.0); Mean Corp Hgb Conc 32.5 g/dL (32-36); Mean Corpuscular Hgb 31.5 pg (27.0-32.0); Mean Corpuscular Volume 96.7 fL (81-99); Mean Platelet Vol. 12.3 fl (6.2-12.0); Platelet Count 208 K/mm3 (150-450); RBC Distribution Width CV 14.4 % (11.6-14.6); Red Blood Count 3.05 M/mm3 (4.2-5.4); White Blood Count 5.4 K/mm3 (4.4-11.0)
[2024-09-15 11:09] LABS: ALB/GLOB Ratio 0.9 RATIO (0.9-2.4); AST(SGOT) 22 U/L (15-37); Alanine Aminotransfer ALT/SGPT 24 U/L (13-56); Albumin, Serum 3.5 g/dL (3.2-5.0); Alkaline Phosphatase 133 U/L (45-117); Anion Gap 6 (5-15); BUN 38 mg/dL (7-18); Calcium,Total 9.4 mg/dL (8.5-10.1); Chloride 109 mmol/L (98-107); Creatinine, Serum 1.65 mg/dL (0.55-1.02); EST Glomerular Filtration Rate 32 mL/min (>60); Est Glom Filt Rate - Afr Amer 38 mL/min (>60); Globulin 4.1 g/dL (2.2-4.2); Glucose 124 mg/dL (74-106); Potassium 4.1 mmol/L (3.5-5.1); Protein, Total 7.6 g/dL (6.4-8.2); Sodium Level 141 mmol/L (136-145)
[2024-09-15 11:37] VITALS: BP 158/52; PULSE 58; RESP 16; O2SAT 98
== END 2024-09-15 23:59 | disposition home or self-care (01) ==
LOC: MEDOUTP 10:17
PROVIDERS: PCP Nurse Practitioner Family; Referring Provider Internal Medicine Infectious Disease; Visit Provider Internal Medicine Infectious Disease
DX: R78.81 Bacteremia (principal)
CPT/HCPCS: 96365; 36591; 80053; 85027; A4216

== ENCOUNTER 2024-09-16 10:12 | Outpatient (CLI) | payer MEDICARE, OTHER, SELFPAY ==
[2024-09-16 10:21] VITALS: BP 150/42; PULSE 61; RESP 16; TEMP 35.8; O2SAT 97; BMI 41.9
[2024-09-16] MEDS: Ertapenem Sod 1 GM in 0.9% Normal Saline (50mL MB+) 50 ML IV (10:44)
[2024-09-16 11:51] VITALS: BP 149/45; PULSE 55
== END 2024-09-16 23:59 | disposition home or self-care (01) ==
LOC: MEDOUTP 10:12
PROVIDERS: PCP Nurse Practitioner Family; Referring Provider Internal Medicine; Visit Provider Internal Medicine
DX: R78.81 Bacteremia (principal)
CPT/HCPCS: 96365; A4216

== ENCOUNTER 2024-09-17 10:19 | Outpatient (CLI) | payer MEDICARE, OTHER, SELFPAY ==
[2024-09-17 10:31] VITALS: BP 157/61; PULSE 51; RESP 14; O2SAT 97
[2024-09-17] MEDS: Ertapenem Sod 1 GM in 0.9% Normal Saline (50mL MB+) 50 ML IV (10:40)
[2024-09-17 11:39] VITALS: BP 149/45; PULSE 60
== END 2024-09-17 23:59 | disposition home or self-care (01) ==
LOC: MEDOUTP 10:19
PROVIDERS: PCP Nurse Practitioner Family; Referring Provider Internal Medicine; Visit Provider Internal Medicine
DX: R78.81 Bacteremia (principal)
CPT/HCPCS: 96365; A4216

== ENCOUNTER 2024-09-18 09:52 | Outpatient (CLI) | payer MEDICARE, OTHER, SELFPAY ==
[2024-09-18 09:57] VITALS: PULSE 59; RESP 16; TEMP 36.1; O2SAT 93
[2024-09-18] MEDS: Ertapenem Sod 1 GM in 0.9% Normal Saline (50mL MB+) 50 ML IV (10:09)
[2024-09-18 11:12] VITALS: BP 151/49; PULSE 54; RESP 16; TEMP 36.2; O2SAT 94
== END 2024-09-18 23:59 | disposition home or self-care (01) ==
LOC: MEDOUTP 09:52
PROVIDERS: PCP Nurse Practitioner Family; Referring Provider Internal Medicine; Visit Provider Internal Medicine
DX: R78.81 Bacteremia (principal)
CPT/HCPCS: 96365; A4216

== ENCOUNTER 2024-09-19 09:50 | Outpatient (CLI) | payer MEDICARE, OTHER, SELFPAY ==
[2024-09-19] MEDS: Ertapenem Sod 1 GM in 0.9% Normal Saline (50mL MB+) 50 ML IV (09:59)
[2024-09-19 10:11] VITALS: BP 159/41; PULSE 60; RESP 14; TEMP 35.9; O2SAT 96
[2024-09-19 11:05] VITALS: BP 157/61; PULSE 56; RESP 14; TEMP 35.7; O2SAT 97
== END 2024-09-19 23:59 | disposition home or self-care (01) ==
LOC: MEDOUTP 09:51
PROVIDERS: PCP Nurse Practitioner Family; Referring Provider Internal Medicine; Visit Provider Internal Medicine
DX: R78.81 Bacteremia (principal)
CPT/HCPCS: 96365; A4216

== ENCOUNTER 2024-09-20 09:59 | Outpatient (CLI) | payer MEDICARE, OTHER, SELFPAY ==
[2024-09-20] MEDS: Ertapenem Sod 1 GM in 0.9% Normal Saline (50mL MB+) 50 ML IV (10:24)
[2024-09-20 10:25] VITALS: BP 159/59; PULSE 62; RESP 18; TEMP 36.7; O2SAT 97
== END 2024-09-20 11:25 | disposition home or self-care (01) ==
LOC: MEDOUTP 10:00 → PCU 10:00
PROVIDERS: PCP Nurse Practitioner Family; Referring Provider Internal Medicine; Visit Provider Internal Medicine
DX: R78.81 Bacteremia (principal)
CPT/HCPCS: 96365

== ENCOUNTER 2024-09-21 09:51 | Outpatient (CLI) | payer MEDICARE, OTHER, SELFPAY ==
[2024-09-21 09:58] VITALS: BP 170/41; PULSE 57; RESP 16; TEMP 36.4; O2SAT 97
[2024-09-21] MEDS: Ertapenem Sod 1 GM in 0.9% Normal Saline (50mL MB+) 50 ML IV (10:12)
[2024-09-21 11:11] VITALS: BP 150/32; PULSE 55; RESP 16; TEMP 36.3
== END 2024-09-21 23:59 | disposition home or self-care (01) ==
LOC: MEDOUTP 09:51
PROVIDERS: PCP Nurse Practitioner Family; Referring Provider Internal Medicine; Visit Provider Internal Medicine
DX: R78.81 Bacteremia (principal)
CPT/HCPCS: 96365; A4216

== ENCOUNTER 2024-09-22 10:19 | Outpatient (CLI) | payer MEDICARE, OTHER, SELFPAY ==
[2024-09-22 10:43] VITALS: BP 139/51; PULSE 54; RESP 16; TEMP 36.2; O2SAT 97
[2024-09-22] MEDS: Ertapenem Sod 1 GM in 0.9% Normal Saline (50mL MB+) 50 ML IV (10:47)
[2024-09-22 11:33] VITALS: BP 130/52; PULSE 50
== END 2024-09-22 23:59 | disposition home or self-care (01) ==
LOC: MEDOUTP 10:19
PROVIDERS: PCP Nurse Practitioner Family; Referring Provider Internal Medicine; Visit Provider Internal Medicine
DX: R78.81 Bacteremia (principal)
CPT/HCPCS: 96365

== ENCOUNTER 2024-09-23 10:18 | Outpatient (CLI) | payer MEDICARE, OTHER, SELFPAY ==
[2024-09-23 10:30] VITALS: BP 153/54; PULSE 68; RESP 16; TEMP 36.6; O2SAT 100
[2024-09-23] MEDS: Ertapenem Sod 1 GM in 0.9% Normal Saline (50mL MB+) 50 ML IV (10:32)
[2024-09-23 11:18] VITALS: BP 154/52; PULSE 54
== END 2024-09-23 23:59 | disposition home or self-care (01) ==
LOC: MEDOUTP 10:19
PROVIDERS: PCP Nurse Practitioner Family; Referring Provider Internal Medicine; Visit Provider Internal Medicine
DX: R78.81 Bacteremia (principal)
CPT/HCPCS: 96365; A4216

== ENCOUNTER → 2024-11-06 | Outpatient (CLI) | payer MEDICARE, OTHER, SELFPAY ==
--- NOTE | 2024-11-06 09:41 | ECHOD_ITS ---
Reason For Study Reason For Study: PHTN Procedure This was a 2D Doppler, Color Flow transthoracic echocardiogram. Exam performed in department. Left Ventricle Normal LV size. Mild concentric left ventricular hypertrophy. Left ventricular systolic function is normal. The left ventricular ejection fraction is 65 %. No regional wall motion abnormalities noted. Right Ventricle Normal RV size. Normal systolic function. Atria The left atrium is severely enlarged. The right atrium is moderately enlarged. Mitral Valve Normal mitral valve. Mild (1+) eccentric mitral valve insufficiency. Tricuspid Valve Normal tricuspid valve. Moderate (2+) tricuspid valve insufficiency. Pulmonary artery systolic pressure is 65 mmHg. Aortic Valve Peak aortic valve gradient 28 mmHg. Mean aortic valve gradient 15 mmHg. Bioprosthetic aortic valve. Great Vessels Normal aortic root. The pulmonary artery is normal size. Inferior vena cava collapse with sniff. Pericardium/Pleural No pericardial effusion. MMode/2D Measurements & Calculations LVIDd: 5.8 cm IVSd: 1.2 cm LVOT diam: 2.0 cm LVIDs: 3.3 cm LVPWd: 1.5 cm LVOT area: 3.2 cm2 RVDd: 4.1 cm FS: 42.0 % Ao root diam: 3.4 cm LAV(MOD-bp): 123.5 ml LVAd ap4: 31.5 cm2 LAV(MOD-bp) Indexed: 55.6 ml/m2 LVLd ap4: 7.4 cm LAV(MOD-sp2): 109.0 ml EDV(MOD-sp4): 111.8 ml LAV(MOD-sp4): 127.4 ml EDV(sp4-el): 114.1 ml LVAs ap4: 14.7 cm2 LVLs ap4: 6.0 cm ESV(MOD-sp4): 32.3 ml ESV(sp4-el): 30.8 ml EF(MOD-sp4): 71.1 % EF(sp4-el): 73.0 % SV(MOD-sp4): 79.6 ml SV(sp4-el): 83.3 ml LA A4 area: 35.0 cm2 SI(MOD-sp4): 35.8 ml/m2 LA dimension(2D): 5.9 cm RA A4 area: 31.6 cm2 Time Measurements MV dec time: 0.17 sec Doppler Measurements & Calculations MV E max luke: 152.0 cm/sec Lat Peak E' Luke: 12.3 cm/sec Med Peak E' Luke: 8.4 cm/sec MV A max luke: 61.6 cm/sec E/E' lat: 12.4 E/E' med: 18.1 MV E/A: 2.5 Ao V2 max: 267.0 cm/sec LV V1 max: 179.2 cm/sec MV dec slope: 901.9 cm/sec2 Ao max P.7 mmHg LV V1 max P.0 mmHg Ao V2 mean: 180.9 cm/sec LV V1 mean P.6 mmHg Ao mean P.2 mmHg LV V1 mean: 111.9 cm/sec Ao V2 VTI: 68.2 cm LV V1 VTI: 47.2 cm AV (velocity ratio): 0.69 ALONSO(I,D): 2.2 cm2 ALONSO(V,D): 2.1 cm2 SV(LVOT): 150.3 ml PA V2 max: 126.1 cm/sec TR max luke: 384.0 cm/sec PA V2 mean: 75.4 cm/sec TR max P.0 mmHg ECHO/Echo Complete Interpretation Summary Normal LV size. Left ventricular systolic function is normal. The left ventricular ejection fraction is 65 %. Bioprosthetic aortic valve. Mean aortic valve gradient 15 mmHg. The left atrium is severely enlarged. Ordering Physician: Carlos Nelson V Referring Physician: Carlos Nelson V Performed By: Kayli Palacios RCS
== END | disposition home or self-care (01) ==
LOC: CVS 09:41
PROVIDERS: PCP Nurse Practitioner Family; Referring Provider Internal Medicine Pulmonary Disease; Visit Provider Internal Medicine Pulmonary Disease
DX: I27.0 Primary pulmonary hypertension (principal)
CPT/HCPCS: 93306

== ENCOUNTER → 2025-01-22 | Outpatient (CLI) | payer MEDICARE, OTHER, SELFPAY ==
--- NOTE | 2025-01-22 10:33 | BI_ITS ---
EXAM: SCRN MAMM (CAD)W/JODI BILAT 01/22/2025 CLINICAL HISTORY: F, Age 79 y/o , SCREENING TECHNIQUE: Bilateral screening digital breast tomosynthesis with 2D and 3D images. Computer aided detection. COMPARISON: Prior exam(s) dated 01/22/2024, 08/08/2022, 08/01/2021. FINDINGS: TISSUE DENSITY: The breast tissue is composed of scattered area of fibroglandular density. Bilateral Breast Mammographic Findings: No significant masses, calcifications or other abnormalities are identified. BI/SCRN MAMM (CAD)W/JODI BILAT IMPRESSION: Right Breast: BIRADS 1 NEGATIVE. Left Breast: BIRADS 1 NEGATIVE. OVERALL FINAL ASSESSMENT: BIRADS 1 NEGATIVE. RECOMMENDATION: Routine annual follow-up in 1 Year A letter with findings and recommendations will be mailed to the patient. Reading Location: [id number]
== END | disposition home or self-care (01) ==
LOC: OPBI 10:32
PROVIDERS: PCP Nurse Practitioner Family; Referring Provider Nurse Practitioner Family; Visit Provider Nurse Practitioner Family
DX: Z12.31 Encounter for screening mammogram for malignant neoplasm of breast (principal)
CPT/HCPCS: 77063; 77067

== ENCOUNTER 2025-05-25 09:37 | Outpatient (CLI) | payer MEDICARE, OTHER, SELFPAY ==
[2025-05-25 10:20] LABS: Anion Gap 13 (5-15); BUN 41 mg/dL (4-19); BUN/Creat Ratio 24.1 RATIO (10-20); Calcium,Total 9.4 mg/dL (7.6-11.0); Carbon Dioxide 24.2 mmol/L (21.0-32.0); Chloride 103 mmol/L (98-108); Glucose 133 mg/dL (70-99); Potassium 4.4 mmol/L (3.3-5.1); Pro- Brain NATRIURETIC PEPTIDE 3507 pg/mL (<=1800)
== END 2025-05-25 23:59 | disposition home or self-care (01) ==
LOC: MEDOUTP 09:37
PROVIDERS: PCP Nurse Practitioner Family; Referring Provider Nurse Practitioner Gerontology; Visit Provider Nurse Practitioner Gerontology
DX: R06.00 Dyspnea, unspecified (principal); I50.32 Chronic diastolic (congestive) heart failure; I48.11 Longstanding persistent atrial fibrillation
CPT/HCPCS: 36591; 80048; 83880; A4216